=== PATIENT | female | born 1970 | race Caucasian/White ===

== ENCOUNTER 2022-09-18 15:45 | Outpatient (CLI) | payer MEDICAID, SELFPAY ==
--- NOTE | 2022-09-18 16:00 | CRLHL7_ITS ---
For Patients: As a result of the Century Cures Act, medical imaging exams and procedure reports are released immediately into your electronic medical record. You may view this report before your referring provider. If you have questions, please contact your health care provider. INDICATION: Otorrhea Comparison none. TECHNIQUE: Noncontrast CT of the yazidi bones. FINDINGS: Left: Opacification of the posterior inferior left mastoid air cells. The remaining left mastoid air cells and mastoid antrum are clear. Middle ear cavity is clear. Normal articulation of the ossicular chain. No opacification of sinus tympani. Normal tympanic membrane. The external auditory canal is patent. Tegmen tympani is intact. Normal mineralization of the otic capsule. Normal cochlea and vestibule. Normal internal auditory canal. Right: Opacification coalescence of the right mastoid air cells and mastoid antrum. 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 There is normal articulation of the prosthesis at the oval window. Thinning of tegmen tympani but without eduardo dehiscence. Normal external auditory canal. Normal mineralization the otic capsule. Normal cochlea and vestibule. Normal internal auditory canal. Other: Visualized paranasal sinuses are clear. IMPRESSION: 1. Small amount of fluid opacifying the posterior inferior left mastoid air cells. Otherwise, remainder of the left temporal bone structures are normal 2. Complete opacification coalescence of the right mastoid air cells and mastoid antrum. Right total ossicular replacement prosthesis. Normal right inner ear structures Please note that all CT scans at this facility use dose modulation, iterative reconstruction, and/or weight-based dosing when appropriate to reduce radiation dose to as low as reasonably achievable. Dictated by Isaac Myrick MD @ 09/19/2022 12:56:02 PM (Electronically Signed)
== END 2022-09-18 15:46 | disposition home or self-care (01) ==
LOC: CT 15:47
PROVIDERS: Visit Provider Otolaryngology
DX: H92.10 Otorrhea, unspecified ear (principal)
CPT/HCPCS: 70480

== ENCOUNTER 2023-05-09 17:32 | Emergency (ER) | payer MEDICAID, SELFPAY ==
[2023-05-09] VITALS (11 sets, daily range): BP systolic 114–139; BP diastolic 66–86; PULSE 58–78; RESP 18; TEMP 36.6; O2SAT 91–98; BMI 42.1
[2023-05-09] MEDS: 0.9 % SODIUM CHLORIDE 1000 ml 1,000 ML IV (18:11)
[2023-05-09 18:14] LABS: Basophils Absolute Auto 0.03 K/uL (0.00-0.30); Basophils Percent Auto 0.4 % (0.0-3.0); Eosinophils Absolute Auto 0.08 K/uL (0.00-0.50); Hematocrit 45.6 % (33.0-51.0); Hemoglobin* 14.4 gm/dL (12.0-16.0); Immature Granulocytes Abs Auto 0.08 K/uL (0.00-0.30); Lymphocytes Absolute Auto 1.83 K/uL (0.90-2.90); Lymphocytes Percent Auto 23.9 % (20-44); Mean Corpuscular HGB Conc 32 gm/dL (32-36); Mean Corpuscular Hemoglobin 27 pg (26-34); Mean Corpuscular Volume 85 fL (80-100); Monocytes Percent Auto 8.7 % (0.0-11.0); Neutrophils Absolute Auto 4.98 K/uL (1.7-7.0); Platelet Count* 208 K/uL (140-440); RDW Coefficient of Variation % 13.5 % (11.5-15.5); Red Blood Count 5.38 m/uL (4.00-5.20); White Blood Count* 7.67 K/uL (4.50-11.00)
--- OUTSIDE RECORDS SUMMARY | 2023-05-09 18:18 | XMS_ITS | Referral Summary ---
Author Name Unknown Organization [facility] Address [address] [place] [address] Care Team Providers Care Sql Server Bi Developer Name Role Phone Roderick Morelos MD Unavailable [phone] Magno Wood MD Unavailable [phone] Sophie Ocasio AuD Unavailable Henny Rosales PRECISION GRINDER CAMPGROUND CLEANING ATTENDANT Unavailable Sharee Negron RD Unavailable Kaykay Duarte NP Primary Care Provider [phone] Christiane Rodríguez MD Unavailable Jing Cadena PRECISION GRINDER BILL PEDDLER Unavailable Radha Lopez [facility] Unavailable [phone] Geri Loza PA-C Unavailable [phone] Encounters Date Type Department Care Team Description 04/23/2023 MyC Medical Advice [facility] Weight Management [address] [phone] Aye [facility] 04/23/2023 12:00 PM FISH FILLETER Virtual Visit [facility] [address] [phone] Geri Loza PA-C S/P laparoscopic sleeve gastrectomy 04/23/2023 1:30 PM FISH FILLETER Virtual Visit [facility] [address] [phone] Nutritional counseling (Primary Dx); S/P laparoscopic sleeve gastrectomy; Type 2 diabetes mellitus without complication, without long-term current use of insulin (H); Obesity 04/14/2023 MyC Medical Advice [facility] [address] [phone] Tanya Larsen, RN 04/06/2023 MyC Medical Advice [facility] [address] [phone] Tanya Larsen, RN 04/02/2023 MyC Medical Advice [facility] [address] [phone] Tanya Larsen, RN 03/31/2023 MyC Medical Advice [facility] [address] [phone] Tanya Larsen, RN 03/25/2023 MyC Medical Advice [facility] [address] [phone] Aye [facility] 03/25/2023 2:30 PM FISH FILLETER Virtual Visit [facility] [address] [phone] Nutritional counseling (Primary Dx); S/P laparoscopic sleeve gastrectomy; Class 3 severe obesity with serious comorbidity and body mass index (BMI) of 45.0 to 49.9 in adult, unspecified obesity type (H); Type 2 diabetes mellitus without complication, without long-term current use of insulin (H) 03/24/2023 MyC Medical Advice [facility] [address] [phone] Agnélica Milligan 03/24/2023 10:30 AM FISH FILLETER Office Visit [facility] [address] [place] [phone] Alia Flowers NP S/P laparoscopic sleeve gastrectomy (Primary Dx); Class 3 severe obesity with serious comorbidity and body mass index (BMI) of 45.0 to 49.9 in adult, unspecified obesity type (H); Type 2 diabetes mellitus without complication, without long-term current use of insulin (H) 03/22/2023 Travel 03/21/2023 MyC Medical Advice [facility] [address] [place] [phone] Luis A Escobedo MD 03/21/2023 Orders Only [facility] Surgical Specialties Service Line [address] [place] [phone] Luis A Escobedo MD S/P gastric bypass (Primary Dx) 03/20/2023 Telephone [facility] - Surgical Specialties Service Line [address] [place] [phone] Jose L Grayson MD 03/18/2023 8:33 AM FISH FILLETER - 03/19/2023 1:35 PM FISH FILLETER Hospital Encounter [facility] [address] [place] [phone] Luis A Escobedo MD Acute post-operative pain (Primary Dx); Morbid obesity (H); S/P laparoscopic sleeve gastrectomy Discharge Disposition: Home or Self Care 03/18/2023 11:10 AM FISH FILLETER - 03/18/2023 3:05 PM FISH FILLETER Surgery [facility] Per[facility]Op Services [address] [place] [phone] Luis A Escobedo MD laparoscopic conversion sleeve gastrectomy to Juan F-en-Y gastric bypass; upper endoscopy 03/18/2023 11:43 AM FISH FILLETER Anesthesia Event [facility] [address] [place] [phone] Bobo Martínez MD Simmons, Kelli Jo, PRECISION GRINDER BILL PEDDLER 03/17/2023 MyC Medical Advice PREOP/PHASE II [address] [place] [phone] Pearl Rocha, SKIP 03/11/2023 MyC Medical Advice Initial Department [facility] 03/11/2023 MyC Medical Advice Initial Department [facility] 02/18/2023 MyC Medical Advice [facility] Preoperative Assessment [address] [phone] Nikky Babb RN 02/18/2023 PRE VISIT [facility] Preoperative Assessment [address] [phone] Jing Cadena, PRECISION GRINDER BILL PEDDLER 02/18/2023 10:00 AM FISH FILLETER Virtual Visit [facility] Preoperative Assessment [address] [phone] Luis A Escobedo MD Simmons, Kelli Jo, PRECISION GRINDER BILL PEDDLER Preop examination (Primary Dx); S/P laparoscopic sleeve gastrectomy 02/17/2023 MyC Medical Advice [facility] [address] [phone] Henny Arguello, SKIP 02/17/2023 MyC Medical Advice [facility] [address] [phone] Henny Arguello, SKIP 02/17/2023 8:00 AM FISH FILLETER Virtual Visit [facility] [address] [phone] Henny Arguello, SKIP S/P laparoscopic sleeve gastrectomy (Primary Dx); At high risk for postoperative complications 02/10/2023 Telephone [facility] [address] [phone] Edgar Rothman 02/09/2023 Telephone [facility] [address] [phone] Radha Dominguez RN 02/06/2023 MyC Medical Advice [facility] [address] [phone] Kang Griffiths 02/06/2023 9:30 AM FISH FILLETER Virtual Visit [facility] [address] [phone] Nutritional counseling (Primary Dx); S/P laparoscopic sleeve gastrectomy; Class 3 severe obesity with serious comorbidity and body mass index (BMI) of 45.0 to 49.9 in adult, unspecified obesity type (H); Type 2 diabetes mellitus without complication, without long-term current use of insulin (H); Gastroesophageal reflux disease with esophagitis, unspecified whether hemorrhage from Last 3 Months Allergies Active Allergy Reactions Criticality Noted Date Comments Ibuprofen Other (See Comments) Low 10/19/2020 Gastric sleeve Medications Medication Sig Dispensed Refills Start Date End Date Status levothyroxine (SYNTHROID/LEVOTHR OID) 200 MCG tablet Take 225 mcg by mouth at bedtime 90 tablet 0 Active gabapentin (NEURONTIN) 600 MG tablet Take 600 mg by mouth At Bedtime 0 Active rOPINIRole (REQUIP) 2 MG tablet Take 2 mg by mouth 2 times daily Take in afternoon and at bedtime 0 Active albuterol (PROVENTIL) (2.5 MG/3ML) 0.083% neb solutionIndication s:Asthma with acute exacerbation, unspecified asthma severity, unspecified whether persistent Take 1 vial (2.5 mg) by nebulization every 4 hours as needed for shortness of breath / dyspnea or wheezing 90 mL 1 2 Active Additional Information Patient taking differently:2.5 mg NebulizationPRN, shortness of breath, wheezing, Reported on 11/19/2022 albuterol (PROAIR HFA/PROVENTIL HFA/VENTOLIN HFA) 108 (90 Base) MCG/ACT inhaler Inhale 2 puffs into the lungs every 6 hours as needed for shortness of breath / dyspnea or wheezing 18 g 0 2 Active Additional Information Patient taking differently:2 puff InhalationPRN, shortness of breath, wheezing, Reported on 11/19/2022 blood glucose (ACCU-CHEK GUIDE) test strip USE 1 STRIP TO TEST THREE TIMES A DAY. 0 3 Active levonorgestrel (MIRENA) 52 MG (20 mcg/day) IUD 1 each by Intrauterine route 0 Active atorvastatin (LIPITOR) 40 MG tablet Take 40 mg by mouth every evening 0 3 11/27/19 24 Active omeprazole (PRILOSEC) [address] capsuleIndications :Gastroesophageal reflux disease with esophagitis, unspecified whether hemorrhage Take 1 capsule (40 mg) by mouth 2 times daily 180 capsule 3 3 Active cyanocobalamin (VITAMIN B-12) [address] 1 tablet under the tongue every morning 0 Active acetaminophen (TYLENOL) 325 MG tabletIndications: Morbid obesity (H),Acute post-operative pain Take 2 tablets (650 mg) by mouth every 4 hours as needed for other (For optimal non-opioid multimodal pain management to improve pain control and physical function.) 100 tablet 0 3 Active blood glucose monitoring (NO BRAND SPECIFIED) meter device kitIndications:S/P laparoscopic sleeve gastrectomy,Class 3 severe obesity with serious comorbidity and body mass index (BMI) of 45.0 to 49.9 in adult, unspecified obesity type (H),Type 2 diabetes mellitus without complication, without long-term current use of insulin (H) Use to test blood sugar 1 times daily or as directed. 1 kit 0 4 Active blood glucose (NO BRAND SPECIFIED) lancets standardIndication s:S/P laparoscopic sleeve gastrectomy,Class 3 severe obesity with serious comorbidity and body mass index (BMI) of 45.0 to 49.9 in adult, unspecified obesity type (H),Type 2 diabetes mellitus without complication, without long-term current use of insulin (H) Use to test blood sugar 1 times daily or as directed. 100 each 1 4 Active blood glucose (CONTOUR NEXT TEST) test stripIndications:S /P laparoscopic sleeve gastrectomy,Class 3 severe obesity with serious comorbidity and body mass index (BMI) of 45.0 to 49.9 in adult, unspecified obesity type (H),Type 2 diabetes mellitus without complication, without long-term current use of insulin (H) 1 strip by In Vitro route daily Use to test blood sugar 1 times daily or as directed. 100 strip 3 4 Active ursodiol (ACTIGALL) 300 MG capsuleIndications :S/P laparoscopic sleeve gastrectomy Take 1 capsule (300 mg) by mouth 2 times daily 60 capsule 5 4 Active Cyanocobalamin (B-12) 500 MCG SUBLIndications:S/ P laparoscopic sleeve gastrectomy Place 1 tablet under the tongue daily 30 tablet 11 4 Active tirzepatide (MOUNJARO) 15 MG/0.5ML pen Inject 15 mg Subcutaneous every 7 days Thursday 0 04/23/19 24 Discontinued( Stop at Discharge) hyoscyamine (LEVSIN) 0.125 MG tabletIndications: S/P laparoscopic sleeve gastrectomy,At high risk for postoperative complications Take 1 tablet (125 mcg) by mouth every 4 hours as needed for cramping 30 tablet 1 3 04/23/19 24 Discontinued( Therapy completed (No AVS)) ondansetron (ZOFRAN ODT) 4 MG ODT tabIndications:S/P laparoscopic sleeve gastrectomy,At high risk for postoperative complications Take 1 tablet (4 mg) by mouth every 6 hours as needed for nausea 15 tablet 0 3 04/23/19 24 Discontinued( Therapy completed (No AVS)) senna-docusate (SENOKOT-S/PERICOL PAULA) 8.6-50 MG tabletIndications: S/P laparoscopic sleeve gastrectomy,At high risk for postoperative complications Take 2 tablets by mouth daily as needed for constipation (While taking narcotic pain medications. Stop taking if having loose stools.) 30 tablet 1 3 04/23/19 24 Discontinued( Therapy completed (No AVS)) oxyCODONE (ROXICODONE) 5 MG tabletIndications: Acute post-operative pain Take 1 tablet (5 mg) by mouth every 6 hours as needed 12 tablet 0 3 04/23/19 24 Discontinued( Therapy completed (No AVS)) senna-docusate (SENOKOT-S/PERICOL PAULA) 8.6-50 MG tabletIndications: Morbid obesity (H),Acute post-operative pain Take 2 tablets by mouth 2 times daily as needed for constipation 30 tablet 0 3 04/23/19 24 Discontinued( Therapy completed (No AVS)) ondansetron (ZOFRAN ODT) 4 MG ODT tabIndications:Mor bid obesity (H),Acute post-operative pain Take 1 tablet (4 mg) by mouth every 6 hours as needed for nausea or vomiting 30 tablet 0 3 04/23/19 24 Discontinued( Therapy completed (No AVS)) Cyanocobalamin (B-12) 500 MCG SUBLIndications:S/ P laparoscopic sleeve gastrectomy Place 1 tablet under the tongue daily 30 tablet 11 3 04/23/19 24 Discontinued( Reorder (No AVS)) Active Problems Problem Noted Date Diagnosed Date Morbid obesity 03/18/2023 Hyperglycemia 10/30/2021 Acute bronchitis, unspecified organism 2 Asthma with acute exacerbati on, unspecified asthma severity, unspecified whether persistent 06/19/2021 S/P laparoscopic sleeve gastrectomy 08/09/2020 08/15/2022 Overview: Laparoscopic vertical sleeve gastrectomy, intraoperative EGD No elective surgery for 30 days starting 08/09/20 Last Assessment & Plan: S/p gastric sleeve 08/09/2020 at [facility]. No post op complications. Weight prior to surgery - 338lbs, BMI 56.25 Braxton weight - 300lbs Weight today - 305lbs Denies nausea, vomiting, dysphagia, diarrhea. ETOH - rarely. No nicotine. NSAIDs - ibuprofen rarely for chronic back pain. Caffeine - 1 cup coffee daily Tachycardia 03/23/2020 Bloody stool 03/22/2020 Hx of hemorrhoids 03/22/2020 Pneumonia due to COVID-19 virus 03/20/2020 Viral pneumonitis 03/19/2020 Hypoxia 03/19/2020 2019 novel coronavirus disease (COVID-19) 2019 Type 2 diabetes mellitus wit hout complication, without long-term current use of insulin 12/15/2019 Severe obstructive sleep apnea 07/06/2019 Overview: Setting: Supplied by: PSG done: 07-04-18 AHI 35 RDI 36 Lowest O2 Sat: 87% Lorin Hypothyroidism, unspecified type 06/28/2019 Cervical high risk HPV (human papillomavirus) te st positive 08/05/2017 Overview: Overview: [facility] Review: History: 2018: NILM HPV+ (18), colp neg Plan, per ASCCP guidelines: co-test in 12 months (08/2018) Class 3 severe obesity with serious comorbidity and body mass index (BMI) of 45.0 to 49.9 in adult, unspecified obesity type 04/15/2017 Last Assessment & Plan: Overweight onset through 3 pregnancies and was weight stable at 250lbs for many years. Weight gain was very gradual. Decided to complete bariatric surgery after years of consider for help with resistant weight loss. Gastric sleeve was completed 08/09/[address] [facility] [address] Barillas. Starting weight 338lb, BMI 56.25. She felt that instantly did not see expected weight loss results. Per chart review had lost 8lbs by 3 months post op and has followed up with [facility] since. She has lost 38lbs since surgery, and has been able maintain weight loss of 305lbs for many years. However, continues to feel that is inadequet weight loss and wanted to discuss a conversion to RYBP today. Started Mounjaro over the past 6 months and is currently taking 15mg once weekly for the past 7 weeks. For Type II Diabetes. No side effects. No weight loss. Some help with hunger and feeling funk faster. She states she eats 3 meals a day with no snacks. But does have increase hunger. Will have her follow up with dietitian for further evaluation on diet. Per chart review was most recently seen by Dr. Joshua Daniel for inadequate weight loss and GERD symptoms. Discussed possible corrective surgery and UGI was completed. Per chart review, patient did not follow up after UGI was completed. Will have images pushed. Will review with team at next bariatric team meeting and discuss possible surgical options. Chronic low back pain 08/01/2016 OAB (overactive bladder) 08/01/2016 Mild intermittent asthma without complication Moderate persistent asthma with acute exacerbati on 06/12/2016 Wheezing 10/21/2014 Asthma exacerbation 10/21/2014 Panic attacks 10/16/2014 Restless legs syndrome 05/29/2014 Gastroesophageal reflux disease with esophagitis 08/14/2009 Last Assessment & Plan: GERD onstet after sleeve surgery. Symptoms include burning in chest/throat and acid in throat. Symptoms worsened with food. Triggered by acidic food. Takes TUMs PRN. Denies vomiting. UGI 08/08/2022. Will start Omeprazole 20mg once daily for symptom control. Irregular heart beat 08/14/2009 Mixed hyperlipidemia 08/14/2009 Immunizations Name Administration Dates Next Due Influenza (H1N1) 01/24/2009 Influenza (IIV3) PF 03/30/2013,04/02/2012,2008 Influenza Vaccine >6 months,quad, PF ,12/22/2015,01/01/2015,2013 Pneumococcal 23 valent 04/14/2017 Social History Tobacco Use Types Packs/Day Years Used Date Smoking Tobacco: Never Passive Smoke Exposure: Never Smokeless Tobacco: Never Tobacco Cessation:Counseling Given: Not Answered Alcohol Use Standard Drinks/Week Comments Not Currently 0 (1 standard drink = 0.6 oz pur e alcohol) socially PHQ-2 Answer Date Recorded PHQ-2 Score 0 04/23/2023 Adolescent Education Answer Date Record ed Getting School Help Needed Not on file 12/19 Sex and Gender Information Value Date Recorded Sex Assigned at Not on file Gender Identity Not on file Sexual Orientation Not on file Last Filed Vital Signs Vital Sign Reading Time Taken Comments Blood Pressure 124/78 03/24/2023 10:20 AM FISH FILLETER Pulse 70 03/24/2023 10:20 AM FISH FILLETER Temperature 36.8 ??C (98.2 ??F) 03/24/2023 10:[address] Respiratory Rate 16 03/24/2023 10:20 AM FISH FILLETER Oxygen Saturation 99% 03/24/2023 10:20 AM FISH FILLETER Inhaled Oxygen Concentration - - Weight 120.7 kg (266 lb) 04/23/2023 11:55 AM FISH FILLETER Height 167.6 cm (5' 6) 04/23/2023 11:55 AM FISH FILLETER Body Mass Index 42.93 04/23/2023 11:55 AM FISH FILLETER Plan of Treatment Upcoming Encounters Date Type Department Care Team (Late st Contact Info) Description 06/24/2023 12:30 PM CDT Virtual Visit [facility] [address] [phone] Geri Loza PA-C [address] [place] [address] [phone] 06/24/2023 1:00 PM CDT Virtual Visit [facility] Weight Management [address] [phone] Sharee Negron, RD [address] [place] [phone] Goals Goal Patient Goal Type Associated Problems Recent Progress Patient-Stated? Author BRIAN PATHWAY SURGERY IS SCHEDULED Care Plan [facility] PATHWAY SURGERY IS SCHEDULED No Luis A Escobedo MD Procedures Procedure Name Priority Date/Time Associated Diagnosis Comments GLUCOSE BY METER Routine 03/19/2023 12:0 5 PM FISH FILLETER PLATELET COUNT STAT 03/19/2023 7:37 AM FISH FILLETER GLUCOSE BY METER Routine 03/19/2023 7:24 AM FISH FILLETER GLUCOSE BY METER Routine 03/19/2023 2:52 AM FISH FILLETER GLUCOSE BY METER Routine 03/18/2023 10:2 7 PM FISH FILLETER GLUCOSE BY METER Routine 03/18/2023 7:32 PM FISH FILLETER CREATININE Routine 03/18/2023 6:21 PM FISH FILLETER GLUCOSE BY METER Routine 03/18/2023 4:46 PM FISH FILLETER GLUCOSE BY METER Routine 03/18/2023 2:42 PM FISH FILLETER ANE AIRWAY ETT PERFORMABLE Routine 03/18/2023 12:00 PM FISH FILLETER HERNIORRHAPHY, HIATAL, LAPAROSCOPIC 03/18/2023 11:51 AM FISH FILLETER Morbid obesity (H) Special Needs Estimated body mass index is 47.05 kg/m?? as calculated from the following:Height as of 01/29/23: 1.676 m (5' 6).Weight as of 01/29/23: 132.2 kg (291 lb 8 oz). PAC [id number] CREATION, GASTRIC BYPASS, LAPAROSCOPIC 03/18/2023 11:51 AM FISH FILLETER Morbid obesity (H) Special Needs Estimated body mass index is 47.05 kg/m?? as calculated from the following:Height as of 01/29/23: 1.676 m (5' 6).Weight as of 01/29/23: 132.2 kg (291 lb 8 oz). PAC [id number] ABO/RH TYPE AND SCREEN STAT 03/18/2023 10:38 AM FISH FILLETER TYPE AND SCREEN, ADULT STAT 03/18/2023 10:38 AM FISH FILLETER GLUCOSE BY METER Routine 03/18/2023 9:22 AM FISH FILLETER from Last 3 Months Results * Glucose by meter (03/19/2023 12:05 PM FISH FILLETER) Only the most recent of8 resultswithin the time period is included. [facility] GLUCOSE BY METER POCT 91 70 - 99 mg/dL 03/19/2023 12:12 PM FISH FILLETER [facility] POC Blood, Capillary BLOOD SPECIMEN / Unknown 03/19/2023 12:05 PM FISH FILLETER 03/19/2023 12:12 PM FISH FILLETER Luis A LAWTON POCT [facility] POC [facility] [place] [facility] [address] [facility], [address] [place] [address], [facility] [phone] * Platelet count (03/19/2023 7:37 AM FISH FILLETER) Pathologist [facility] Platelet Count 237 150 - 450 10e3/uL 03/19/2023 7:54 AM FISH FILLETER [facility] Blood STRUCTURE OF LEFT UPPER LIMB / Unknown Venipuncture / Unknown 03/19/2023 7:37 AM FISH FILLETER 03/19/2023 7:47 AM FISH FILLETER Luis A Escobedo MD LAB - BLOOD ORDER [facility] [address] [facility], [address] [phone], [facility] [phone] * Creatinine (03/18/2023 6:21 PM FISH FILLETER) Pathologist [facility] Creatinine 0.76 0.51 - 0.95 mg/dL 03/18/2023 7:05 PM FISH FILLETER [facility] GFR Estimate >90 >60 mL/min/1.73 m2 03/18/2023 7:05 PM FISH FILLETER U LABORATORY Blood STRUCTURE OF LEFT HAND / Unknown Venipuncture / Unknown 03/18/2023 6:21 PM FISH FILLETER 03/18/2023 6:32 PM FISH FILLETER Disha Guthrie MD LAB - BLOOD O RDERABLES Performing Organization Address City/[facility]/ZIP Co de Phone Number LABORATORY [facility] [address] [facility], [address] [phone], [facility] [phone] * ANE AIRWAY ETT PERFORMABLE (03/18/2023 12:00 PM FISH FILLETER) Narrative Emerita Jacques APRN CRNA - 03/18/2023 12:00 PM FISH FILLETER Emerita Jacques APRN CRNA ? 03/18/2023 12:16 PM Airway ? Patient location during procedure: OR ? Procedure Start/Stop Times: 03/18/2023 12:00 PM Staff - ? PRODUCTION SUPPORT MANAGER: Emerita Jacques APRN CRNA ? Performed By: PRODUCTION SUPPORT MANAGER Consent for Airway ? Urgency: elective Indications and Patient Condition ? Indications for airway management: ruslan-procedural ? Induction type:intravenous ? Mask difficulty assessment: 1 - vent by mask Final Airway Details ? Final airway type: endotracheal airway ? Successful airway: ETT - single and Oral Endotracheal Airway Details ? ETT size (mm): 7.0 ? Cuffed: yes ? Successful intubation technique: direct laryngoscopy ? DL Blade Type: MAC 3 ? Grade View of Cords: 1 ? Adjucts: stylet ? Position: Right ? Measured from: lips ? Secured at (cm): 22 Post intubation assessment ? Placement verified by: capnometry, equal breath sounds and chest rise ? Number of attempts at approach: 1 ? Secured with: pink tape ? Ease of procedure: easy ? Dentition: Unchanged and Intact Medication(s) Administered Medication Administration Time: 03/18/2023 12:00 PM Faizan Moscoso MD [place] ANESTHESIA * Adult Type and Screen (03/18/2023 10:38 AM FISH FILLETER) ABO/RH(D) O POS 03/18/2023 10:02 AM FISH FILLETER [facility] Antibody Screen Negative Negative 03/18/2023 10:02 AM FISH FILLETER [facility] SPECIMEN EXPIRATION DATE [id number] 03/18/2023 10:02 AM FISH FILLETER U BLOOD BANK Blood STRUCTURE OF LEFT HAND / Unknown Venipuncture / Unknown 03/18/2023 10:38 AM FISH FILLETER 03/18/2023 10:55 AM FISH FILLETER Luis A Escobedo MD LAB - BLOOD BANK TEST ORDER [facility] [address] [place] [address], [facility] from Last 3 Months Additional Health Concerns Problem Noted Date Diagnosed Date BRIAN PATHWAY SURGERY IS SCHEDULED 10/15/2022 Advance Directives For more information, please contact: [phone] Latest Code Status on File Code Status Date Activated Date Inactivated Comments Full Code 03/18/2023 5:53 PM 03/19/2023 4:25 PM All basic and advanced life-sustaining interventions are performed as appropriate Question Answer Comments Code status determined by: Unable to discuss and no AD/POLST on file; continue PREVIOUSLY ORDERED code status Code Status History Code Status Date Activated Date Inactivated Comments Full Code 10/30/2021 2:35 AM 10/31/2021 11:55 AM All basic and advanced life-sustaining interventions are performed as appropriate Question Answer Comments Code status determined by: Discussion with patient/ legal decision maker Full Code 06/19/2021 4:12 AM 06/19/2021 5:17 PM All b asic and advanced life-sustaining interventions are performed as appropriate Question Answer Comments Code status determined by: Discussion with patient/ legal decision maker Full Code 03/19/2020 8:54 PM 03/20/2020 6:32 PM All basic and advanced life-sustaining interventions are performed as appropriate Question Answer Comments Code status determined by: Discussion with patient/ legal decision maker Full Code 10/22/2014 12:01 PM 05/01/2018 3:45 AM Care Teams Sql Server Bi Developer Relationship Specialty [place] [address] [address] [place] [address] PCP - General 10/15/22 Roderick Morelos MD [address] [place] [address] Cardiovascular Disease 02/03/22 Magno Wood MD 420 [facility] 396 [place], [place] [address] Otolaryngology 02/21/22 Sophie Ocasio AuD [address] [place] [address] [phone] Armature Winder Repair Audiology 02/21/22 Henny Rosales, PRECISION GRINDER CAMPGROUND CLEANING ATTENDANT [address] [place] [phone] Assigned Heart and Vascular Provider 08/09/[address] [place] [address] Registered Dietitian Dietitian, Registered 09/02/22 Christiane Rodríguez MD [address] [place] [address] 205275 Otolaryngology 11/12/22 Jing Cadena, PRECISION GRINDER BILL PEDDLER [address] [place] [address] Clinical Nurse Specialist Anesthesiology 01/15/23 Radha Lopez, [facility] [address] [place] [address] [phone] Pharmacist Pharmacist 01/16/23 Geri Loza PA-C [address] [place] [address] Assigned Surgical Provider 04/16/23
--- OUTSIDE RECORDS SUMMARY | 2023-05-09 18:18 | XMS_ITS | Encounter Summary ---
Author Name Unknown Organization [place] Address [address] [place] [address] Care Team Providers Care Blasting Gang Miner Name Role Phone Roderick Morelos MD Unavailable [phone] Magno Wood MD Unavailable [phone] Sophie Ocasio AuD Unavailable Henny Rosales APPLE PACKING HEADER WARDROBE SPECIALTY WORKER Unavailable [phone] Unavailable Kaykay Duarte MINERAL ENGINEER Primary Care Provider Christiane Rodríguez MD Unavailable Jing Cadena APPLE PACKING HEADER GALVANIZER Unavailable Radha Lopez [facility] Unavailable Geri Loza PA-C Unavailable [phone] Encounter Details Date Type Department Care Team (Late st Contact Info) Description 04/23/2023 [facility] [place] [id number] [facility] [address] [place] [address] Kang Griffiths Social History Tobacco Use Types Packs/Day Years Used Date Smoking Tobacco: Never Passive Smoke Exposure: Never Smokeless Tobacco: Never Alcohol Use Standard Drinks/Week Comments Not Currently 0 (1 standard drink = 0.6 oz pur e alcohol) socially PHQ-2 Answer Date Recorded PHQ-2 Score 0 04/23/2023 Adolescent Education Answer Date Record ed Getting School Help Needed Not on file 12/19 Sex and Gender Information Value Date Recorded Sex Assigned at Not on file Gender Identity Not on file Sexual Orientation Not on file documented as of this encounter Plan of Treatment Upcoming Encounters Date Type Department Care Team (Late st Contact Info) Description 06/24/2023 12:30 PM CDT Virtual Visit [facility] [address] [phone] Geri Loza PA-C [address] [place] [address] [phone] 06/24/2023 1:00 PM CDT Virtual Visit [facility] [address] [phone] Sharee Negron, RD [address] [place] [address] [phone] documented as of this encounter Goals Goal Patient Goal Type Associated Problems Recent Progress Patient-Stated? Author BRIAN PATHWAY SURGERY IS SCHEDULED Care Plan BRIAN PATHWAY SURGERY IS SCHEDULED No Luis A Escobedo MD documented as of this encounter Visit Diagnoses Not on filedocumented in this encounter Additional Health Concerns Problem Noted Date Diagnosed Date BRIAN PATHWAY SURGERY IS SCHEDULED 10/15/2022 documented as of this encounter Care Teams Blasting Gang Miner Relationship Specialty Start Date End Date Kaykay Duarte MINERAL ENGINEER [address] [place] [address] PCP - General 10/15/22 Roderick Morelos MD [address] [place] [address] Cardiovascular Disease 02/03/22 Magno Wood MD 420 [facility] [address] [place] [address] Otolaryngology 02/21/22 Sophie Ocasio AuD [address] [place] [address] Center Machine Set Up Operator Audiology 02/21/22 Henny Rosales, APPLE PACKING HEADER WARDROBE SPECIALTY WORKER [address] [place] [phone] Assigned Heart and Vascular Provider 08/09/[address] [place] [address] [phone] Registered Dietitian Dietitian, Registered 09/02/22 Christiane Rodríguez MD [address] [place] [address] 396 [place] [address] Otolaryngology 11/12/22 Jing Cadena, APPLE PACKING HEADER GALVANIZER [address] [place] [address] [address] [place] [address] Clinical Nurse Specialist Anesthesiology 01/15/23 Radha Lopez [facility] [address] [place] [address] Pharmacist Pharmacist 01/16/23 Geri Loza PA-C [address] [place] [address] [phone] Assigned Surgical Provider 04/16/23 documented as of this encounter
--- OUTSIDE RECORDS SUMMARY | 2023-05-09 18:18 | XMS_ITS | Clinical Summary ---
Author Name Unknown Organization [place] Address [address] [place] [address] Care Team Providers Care Preform Machine Operator Name Role Phone Roderick Morelos MD Unavailable Magno Wood MD Unavailable [phone] Sophie Ocasio AuD Unavailable Henny Rosales RN MDS COORDINATOR CLIENT ACCOUNT MANAGER Unavailable Sharee Negron RD Unavailable Kaykay Duarte NP Primary Care Provider Christiane Rodríguez MD Unavailable [phone] Jing Cadena RN MDS COORDINATOR MANAGEMENT ARCHITECT Unavailable Radha Lopez [facility] Unavailable [phone] Geri Loza PA-C Unavailable Allergies Active Allergy Reactions Criticality Noted Date [...] & Plan: S/p gastric sleeve 08/09/2020 at [facility]. No post op complications. Weight prior to [...] 35 RDI 36 Lowest O2 Sat: 87% [place] Hypothyroidism, unspecified type 06/28/2019 Cervical high risk HPV (human papillomavirus) te st positive 08/05/2017 Overview: Overview: [facility] Review: History: 2018: NILM HPV+ (18), colp [...] loss. Gastric sleeve was completed 08/09/[address] [facility] [address] Barillas. Starting weight 338lb, BMI 56.25. She felt that instantly did not see expected weight loss results. Per chart review had lost 8lbs by 3 months post op and has followed up with [facility] since. She has lost 38lbs since surgery, [...] Irregular heart beat 08/14/2009 Mixed hyperlipidemia 08/14/2009 Encounters Date Type Department Care Team Description 04/23/2023 1:30 PM CANDY PULLER Virtual Visit [facility] [address] [phone] Nutritional counseling (Primary Dx); S/P laparoscopic sleeve gastrectomy; Type 2 diabetes mellitus without complication, without long-term current use of insulin (H); Obesity 04/23/2023 12:00 PM CANDY PULLER Virtual Visit [facility] [address] [phone] Geri Loza PA-C S/P laparoscopic sleeve gastrectomy 04/23/2023 [facility] Medical Advice [facility] [address] [phone] [facility] 04/14/2023 My[facility] Medical Advice [facility] Weight Management [address] [phone] Tanya Larsen, RN 04/06/2023 [facility] Medical Advice [facility] Weight Management [address] [phone] Tanya Larsen, RN 04/02/2023 [facility] Medical Advice [facility] Weight Management [address] [phone] Tanya Larsen, RN 03/31/2023 My[facility] Medical Advice [facility] Management [address] [phone] Tanya Larsen, SKIP 03/25/2023 2:30 PM CANDY PULLER Virtual Visit [facility] Weight Management [address] [phone] Nutritional counseling (Primary Dx); S/P laparoscopic sleeve gastrectomy; Class 3 severe obesity with serious comorbidity and body mass index (BMI) of 45.0 to 49.9 in adult, unspecified obesity type (H); Type 2 diabetes mellitus without complication, without long-term current use of insulin (H) 03/25/2023 [facility] Management [address] [phone] [facility] 03/24/2023 10:30 AM CANDY PULLER Office Visit [facility] Management [address] [phone] Alia Flowers NP S/P laparoscopic sleeve gastrectomy (Primary Dx); Class 3 severe obesity with serious comorbidity and body mass index (BMI) of 45.0 to 49.9 in adult, unspecified obesity type (H); Type 2 diabetes mellitus without complication, without long-term current use of insulin (H) 03/24/2023 MyC Medical Advice [facility] [place] [address] [place] [address] 4th [place] [phone] Angélica Milligan 03/22/2023 Travel 03/21/2023 MyC Medical Advice [facility] [place] [address] [place] [address] 4th [place] [phone] Luis A Escobedo MD 03/21/2023 Orders Only [facility] Surgical Specialties Service Line [address] [place] [phone] Luis A Escobedo MD S/P gastric bypass (Primary Dx) 03/20/2023 Telephone [facility] Surgical Specialties Service Line [address] [place] [phone] Jose L Grayson MD 03/18/2023 11:43 AM CANDY PULLER Anesthesia Event [facility] [address] [place] [phone] Bobo Martínez MD Simmons, Kelli Jo, RN MDS COORDINATOR [facility] 03/18/2023 11:10 AM CANDY PULLER - 03/18/2023 3:05 PM CANDY PULLER Surgery [facility] [address] [place] [phone] Luis A Escobedo MD laparoscopic conversion sleeve gastrectomy to Juan F-en-Y gastric bypass; upper endoscopy 03/18/2023 8:33 AM CANDY PULLER - 03/19/2023 1:35 PM CANDY PULLER Hospital Encounter [facility] Unit [address] [place] [address] [address] [place] [phone] Luis A Escobedo MD Acute post-operative pain (Primary Dx); Morbid obesity (H); S/P laparoscopic sleeve gastrectomy Discharge Disposition: Home or Self Care 03/17/2023 MyC Medical Advice UR PREOP/PHASE II [address] [place] [phone] Pearl Rocha RN 03/11/2023 MyC Medical Advice Initial Department Kang Griffiths 03/11/2023 [facility]C Medical Advice [facility] 02/18/2023 10:00 AM CANDY PULLER Virtual Visit [facility] Preoperative Assessment [address] [phone] Luis A Escobedo MD Simmons, Kelli Jo, RN MDS COORDINATOR MANAGEMENT ARCHITECT Preop examination (Primary Dx); S/P laparoscopic sleeve gastrectomy 02/18/2023 MyC Medical Advice [facility] Preoperative Assessment [address] [phone] Nikky Babb RN 02/18/2023 PRE VISIT [facility] Preoperative Assessment [address] [phone] Jing Cadena, RN MDS COORDINATOR MANAGEMENT ARCHITECT 02/17/2023 8:00 AM CANDY PULLER Virtual Visit [facility] Weight Management [address] [phone] Henny Arugello, SKIP S/P laparoscopic sleeve gastrectomy (Primary Dx); At high risk for postoperative complications 02/17/2023 MyC Medical Advice [facility] Weight Management [address] [phone] Henny Arguello, RN 02/17/2023 MyC Medical Advice [facility] Weight Management [address] [phone] Henny Arguello, RN 02/10/2023 Telephone [facility] Weight Management [address] [phone] Edgar Rothman 02/09/2023 Telephone [facility] Weight Management [address] [phone] Radha Dominguez, RN 02/06/2023 9:30 AM CANDY PULLER Virtual Visit [facility] Management [address] [phone] Nutritional counseling (Primary Dx); S/P laparoscopic sleeve gastrectomy; Class 3 severe obesity with serious comorbidity and body mass index (BMI) of 45.0 to 49.9 in adult, unspecified obesity type (H); Type 2 diabetes mellitus without complication, without long-term current use of insulin (H); Gastroesophageal reflux disease with esophagitis, unspecified whether hemorrhage 02/06/2023 [facility] [address] [place] [address] [facility] from Last 3 Months Immunizations Name Administration Dates Next Due Influenza (H1N1) 01/24/2009 Influenza (IIV3) PF 03/30/2013,04/02/2012,2008 Influenza Vaccine >6 months,quad, PF ,12/22/2015,01/01/2015,2013 Pneumococcal 23 valent 04/14/2017 Family History Medical History Relation Comments Cerebrovascular Disease Father Deep Vein Thrombosis (DVT) Father Heart Disease Father Hyperlipidemia Father Breast Cancer Mother Colon Cancer Paternal Grandfather Anesthesia Reaction No family hx of Relation Status Comments Father Mother Paternal Grandfather Social History Tobacco Use Types Packs/Day Years [...] Comments Blood Pressure 124/78 03/24/2023 10:20 AM CANDY PULLER Pulse 70 03/24/2023 10:20 AM CANDY PULLER Temperature 36.8 ??C (98.2 ??F) 03/24/2023 10:[address] Respiratory Rate 16 03/24/2023 10:20 AM CANDY PULLER Oxygen Saturation 99% 03/24/2023 10:20 AM CANDY PULLER Inhaled Oxygen Concentration - - Weight 120.7 kg (266 lb) 04/23/2023 11:55 AM CANDY PULLER Height 167.6 cm (5' 6) 04/23/2023 11:55 AM CANDY PULLER Body Mass Index 42.93 04/23/2023 11:55 AM CANDY PULLER Plan of Treatment Upcoming Encounters Date Type Department Care Team (Late st Contact Info) Description 06/24/2023 12:30 PM CDT Virtual Visit [facility] [address] [phone] Geri Loza PA-C [address] [place] [phone] 06/24/2023 1:00 PM CDT Virtual Visit [facility] Weight Management [address] [phone] Sharee Negron, RD [address] [place] [address] [phone] Health Maintenance Due Date Last Done Comments ADVANCE CARE PLANNING 1968 ANNUAL REVIEW OF HM ORDERS 1968 ASTHMA CONTROL TEST 1968 CT COLONOGRAPHY 1968 DIABETIC FOOT EXAM 1968 EYE EXAM 1968 FIT 1968 FLEX SIG 1968 HEPATITIS B IMMUNIZATION (1 of 3 - 3-dose series) 1968 MICROALBUMIN 1968 URINE DRUG SCREEN 1968 sDNA (Cologuard) 1968 COLONOSCOPY 1978 COLORECTAL CANCER SCREENING 1978 HIV SCREENING 10/02/1983 HEPATITIS C SCREENING 1986 Pneumococcal Vaccine: Pediatrics (0 to 5 Years) and At-Risk Patients (6 to 64 Years) (2 of 2 - PCV) 04/14/2018 04/14/2017 COVID-19 Vaccine (3 - Pfizer risk series) 12/26/2020 11/28/2020, 06/19/2020 YEARLY PREVENTIVE VISIT 12/17/2021 12/17/2020 TSH W/FREE T4 REFLEX 02/28/2022 02/28/2021, 03/21/2020, 05/10/2019, Additional history exists INFLUENZA VACCINE (#1) 2022 , 03/31/2019, 04/14/2017, Additional history exists A1C 01/23/2023 10/23/2022, 10/30/2021 BMP 10/24/2023 10/23/2022, 03/23, 01/12/2022, Additional history exists LIPID 10/24/2023 10/23/2022, 12/15/2005 PAP 12/18/2023 12/17/2020, 12/17/2020 ASTHMA ACTION PLAN 01/28/2024 01/27/2023 MAMMO SCREENING 04/02/2025 04/02/2023, 03/23, 02/04/2022, Additional history exists DTAP/TDAP/TD IMMUNIZATION (2 - Td or Tdap) 06/27/2031 06/26/2021 ZOSTER IMMUNIZATION Completed 09/13/2021, PHQ-2 (once per calendar year) Completed 04/23/2023, 03/25/2023, 02/18/2023, Additional history exists HPV IMMUNIZATION Aged Out No longer e ligible based on patient's age to complete this topic IPV IMMUNIZATION Aged Out No longer e ligible based on patient's age to complete this topic MENINGITIS IMMUNIZATION Aged Out No l onger eligible based on patient's age to complete this topic RSV MONOCLONAL ANTIBODY Aged Out No l onger eligible based on patient's age to complete this topic Goals Goal Patient Goal Type Associated Problems Recent Progress Patient-Stated? Author [facility] Care Plan [facility] IS SCHEDULED No Luis A Escobedo MD Procedures Procedure Name Priority Date/Time Associated Diagnosis Comments GLUCOSE BY METER Routine 03/19/2023 12:0 5 PM CANDY PULLER PLATELET COUNT STAT 03/19/2023 7:37 AM CANDY PULLER GLUCOSE BY METER Routine 03/19/2023 7:24 AM CANDY PULLER GLUCOSE BY METER Routine 03/19/2023 2:52 AM CANDY PULLER GLUCOSE BY METER Routine 03/18/2023 10:2 7 PM CANDY PULLER GLUCOSE BY METER Routine 03/18/2023 7:32 PM CANDY PULLER CREATININE Routine 03/18/2023 6:21 PM CANDY PULLER GLUCOSE BY METER Routine 03/18/2023 4:46 PM CANDY PULLER GLUCOSE BY METER Routine 03/18/2023 2:42 PM CANDY PULLER ANE AIRWAY ETT PERFORMABLE Routine 03/18/2023 12:00 PM CANDY PULLER HERNIORRHAPHY, HIATAL, LAPAROSCOPIC 03/18/2023 11:51 AM CANDY PULLER Morbid obesity (H) Special Needs Estimated body mass index is 47.05 kg/m?? as calculated from the following:Height as of 01/29/23: 1.676 m (5' 6).Weight as of 01/29/23: 132.2 kg (291 lb 8 oz). PAC [id number] CREATION, GASTRIC BYPASS, LAPAROSCOPIC 03/18/2023 11:51 AM CANDY PULLER Morbid obesity (H) Special Needs Estimated body mass index is 47.05 kg/m?? as calculated from the following:Height as of 01/29/23: 1.676 m (5' 6).Weight as of 01/29/23: 132.2 kg (291 lb 8 oz). PAC [id number] ABO/RH TYPE AND SCREEN STAT 03/18/2023 10:38 AM CANDY PULLER TYPE AND SCREEN, ADULT STAT 03/18/2023 10:38 AM CANDY PULLER GLUCOSE BY METER Routine 03/18/2023 9:22 AM CANDY PULLER from Last 3 Months Results * Glucose by meter (03/19/2023 12:05 PM CANDY PULLER) Only the most recent of8 resultswithin the time period is included. GLUCOSE BY METER POCT 91 70 - 99 mg/dL 03/19/2023 12:12 PM CANDY PULLER [facility] POC Blood, Capillary BLOOD SPECIMEN / Unknown 03/19/2023 12:05 PM CANDY PULLER 03/19/2023 12:12 PM CANDY PULLER Luis A Escobedo MD LAB - BEAKER POCT LABORATORY POC [facility] [address] [facility], [address] [place] [address], [facility] [phone] * Platelet count (03/19/2023 7:37 AM CANDY PULLER) Platelet Count 237 150 - 450 10e3/uL 03/19/2023 7:54 AM CANDY PULLER [facility] Blood STRUCTURE OF LEFT UPPER LIMB / Unknown Venipuncture / Unknown 03/19/2023 7:37 AM CANDY PULLER 03/19/2023 7:47 AM CANDY PULLER Luis A Escobedo MD LAB - BLOOD ORDER [facility] Performing Organization Address City/Va Hospital/ZIP Co de Phone Number LABORATORY [facility] [address] [facility], [address] [place] [address], [facility] [phone] * Creatinine (03/18/2023 6:21 PM CANDY PULLER) Creatinine 0.76 0.51 - 0.95 mg/dL 03/18/2023 7:05 PM CANDY PULLER [facility] GFR Estimate >90 >60 mL/min/1.73 m2 03/18/2023 7:05 PM CANDY PULLER [facility] Blood STRUCTURE OF LEFT HAND / Unknown Venipuncture / Unknown 03/18/2023 6:21 PM CANDY PULLER 03/18/2023 6:32 PM CANDY PULLER Disha Guthrie MD LAB - BLOOD O RDERABLES LABORATORY [facility] [address] [facility], [address] [place] [address], [facility] [phone] * ANE AIRWAY ETT PERFORMABLE (03/18/2023 12:00 PM CANDY PULLER) Narrative Emerita Jacques APRN SENSOR OPERATOR - 03/18/2023 12:00 PM CANDY PULLER Emerita Jacques APRN SENSOR OPERATOR ? 03/18/2023 12:16 PM Airway ? Patient location during procedure: OR ? Procedure Start/Stop Times: 03/18/2023 12:00 PM Staff - ? SENSOR OPERATOR: Emerita Jacques APRN SENSOR OPERATOR ? Performed By: SENSOR OPERATOR Consent for Airway ? Urgency: elective Indications [...] Time: 03/18/2023 12:00 PM Faizan Moscoso MD [place] ANESTHESIA * Adult Type and Screen (03/18/2023 10:38 AM CANDY PULLER) ABO/RH(D) O POS 03/18/2023 10:02 AM CANDY PULLER [facility] Antibody Screen Negative Negative 03/18/2023 10:02 AM CANDY PULLER [facility] SPECIMEN EXPIRATION DATE [id number] 03/18/2023 10:02 AM CANDY PULLER [facility] Blood STRUCTURE OF LEFT HAND / Unknown Venipuncture / Unknown 03/18/2023 10:38 AM CANDY PULLER 03/18/2023 10:55 AM CANDY PULLER Luis A Escobedo MD LAB - BLOOD BANK TEST ORDER [facility] [address] [place] [address], [facility] from Last 3 Months Additional Health Concerns Problem Noted Date Diagnosed Date BRIAN PATHWAY SURGERY IS SCHEDULED 10/15/2022 Advance Directives For more information, please contact: [phone] Latest Code Status on File Code Status [...] 12:01 PM 05/01/2018 3:45 AM Care Teams Preform Machine Operator Relationship Specialty [place] [address] [place] [address] PCP - General 10/15/22 Roderick Morelos MD [address] [place], [place] [address] Cardiovascular Disease 02/03/22 Magno Wood MD [address] [place] [address] Otolaryngology 02/21/22 Sophie Ocasio AuD [address] [place] [address] [phone] Physician Practice Market Manager Audiology 02/21/22 Henny Rosales APRN CLIENT ACCOUNT MANAGER [address] [place] [phone] Assigned Heart and Vascular Provider 08/09/[address] [place] [address] [phone] Registered Dietitian Dietitian, Registered 09/02/22 Christiane Rodríguez MD [address] [place] [address] 259105 Otolaryngology 11/12/22 Jing Cadena, GINA MANAGEMENT ARCHITECT [address] [place] [address] Clinical Nurse Specialist Anesthesiology 01/15/23 Radha Lopez, [facility] [address] [place] [address] [phone] Pharmacist Pharmacist 01/16/23 Geri Loza PA-C [address] [place] [address] Assigned Surgical Provider 04/16/23
--- OUTSIDE RECORDS SUMMARY | 2023-05-09 18:18 | XMS_ITS | Clinical Summary ---
Author Name Unknown Organization [facility] Address [place], [place] [address] Care Team Providers Care Hot Roll Laminator Name Role Phone Brandan Burleson MD Unavailable [phone] Pcp, No Primary Care Provider Unavailabl e Allergies No known active allergies Medications Medication Sig Dispensed Refills Start Date End Date Status diazepam (VALIUM) 5 mg tabletIndications:Pa annika attacks Take 1 tablet by mouth every 6 hours if needed. 30 tablet 0 09/19/2015 Active HYDROcodone-acetamin ophen, 5-325 mg, (NORCO) per tabletIndications:Ba ck spasm Take 1-2 tablets by mouth every 4 hours if needed for Pain. Max acetaminophen dose: 4000 mg in 24 hrs. 30 tablet 0 09/19/2015 Active fluticasone (50 mcg per actuation) nasal solution (FLONASE)Indications :Purulent postnasal drainage Inhale 1 [place] into both nostrils 2 times daily. 1 Bottle 11 09/19/2015 Active fluticasone (FLOVENT HFA) 220 mcg/Actuation inhalerIndications:B ronchitis Inhale 2 Puffs by mouth 2 times daily. 1 Inhaler 5 09/19/2015 Active montelukast (SINGULAIR) 10 mg tabletIndications:As thmatic bronchitis with acute exacerbation Take 1 tablet by mouth at bedtime. 90 tablet 3 09/19/2015 Active VENTOLIN HFA 90 mcg/actuation inhalerIndications:M oderate persistent asthma with acute exacerbation INHALE 2 PUFFS BY MOUTH FOUR TIMES A DAY IF NEEDED 18 g 0 06/12/2016 Active carisoprodol (SOMA) 350 mg tabletIndications:Ch ronic bilateral low back pain without sciatica Take 1 tablet by mouth 3 times daily. 60 tablet 0 04/03/2017 Active ibuprofen (ADVIL; MOTRIN) 600 mg tabletIndications:Ch ronic bilateral low back pain without sciatica Take 1 tablet by mouth every 6 hours if needed. 90 tablet 0 04/03/2017 Active pramipexole (MIRAPEX) 0.5 mg tabletIndications:Re stless leg syndrome, familial Take 1-2 tablets by mouth 2 times daily. 120 tablet 0 04/09/2017 Active levothyroxine (SYNTHROID) 175 mcg tabletIndications:Hy pothyroidism, unspecified type Take 1 tablet by mouth once daily. 30 tablet 0 06/25/2017 Active famciclovir (FAMVIR) 500 mg tablet Take 1 tablet by mouth 3 times daily for 7 days 21 tablet 0 03/29/2019 Active ondansetron (ZOFRAN ODT) 4 mg disintegrating tabletIndications:Na usea and vomiting, unspecified vomiting type Place 1 Tablet (4 mg) on the tongue two times daily. 10 Tablet 0 06/21/2022 Active Active Problems Problem Noted Date Diagnosed Date Moderate persistent asthma with acute exacerbati on 06/12/2016 Panic attacks 10/16/2014 Thyroid activity decreased 10/02/2014 Restless leg syndrome, familial 05/29/2014 Other and unspecified hyperlipidemia 08/14/2009 GERD (gastroesophageal reflux disease) 0 Irregular heart beat 08/14/2009 Unspecified examination 08/14/2009 Overview: Last pap 09/2007 Last Mammo 09/2008 Chronic low back pain Immunizations Name Administration Dates Next Due AMB Influenza, IIV4 PF (=>6 mos Flulaval,Fluzone Fluarix)(Flu Clinic Only) 01/16/2014 Influenza, IIV3 (Age >=3 years) 03/30/2013,04/02 Influenza, IIV4 12/22/2015,01/01/2015 Tdap 05/29/2014(Deferred: Patient Ref used) Family History Medical History Relation Name Comments Heart Disease Father Hyperlipidemia Father Stroke Father Cancer-breast Mother 32 yrs old Cancer-colon Paternal Grandfather 50's yr s old Cancer No Family History Cancer-ovarian No Family History Cancer-prostate No Family History Relation Name Status Comments Father Alive Mother (Age 34) Paternal Grandfather Social History Tobacco Use Types Packs/Day Years Used Date Smoking Tobacco: Never Smokeless Tobacco: Never Tobacco Cessation:Counseling Given: Yes Alcohol Use Standard Drinks/Week Comments Yes 0 (1 standard drink = 0.6 oz pur e alcohol) rare Sex and Gender Information Value Date Recorded Sex Assigned at Not on file Gender Identity Not on file Sexual Orientation Not on file Obstetrics History Last Filed Vital Signs Vital Sign Reading Time Taken Comments Blood Pressure 136/82 09/07/2022 9:01 PM CDT Pulse 83 09/07/2022 9:01 PM CDT Temperature 36.5 ??C (97.7 ??F) 09/07/2022 9:01 PM CD T Respiratory Rate 16 09/07/2022 9:01 PM CDT Oxygen Saturation 97% 09/07/2022 9:01 PM CDT Inhaled Oxygen Concentration - - Weight 137 kg (302 lb) 09/07/2022 9:01 PM CDT Height 167.6 cm (5' 6) 09/07/2022 9:01 PM CDT Body Mass Index 48.74 09/07/2022 9:01 PM CDT Plan of Treatment Health Maintenance Due Date Last Done Comments Tdap 10/02/1979 HIV for age 15-65 10/02/1983 Hepatitis C screening for age 18-79 1986 Tetanus booster 1988 Colonoscopy through age 75 2013 Mammogram for age 45-75 01/29/2017 01/30/20 16, 01/22/2015, 01/18/2014, Additional history exists BMI (ht and wt on same day) for age 18+ 02/10/2017 02/11/2016, 07/16/2015, 06/13/2015, Additional history exists Depression screening for age 12+ 02/10/2017 02/11/2016, 06/05/2015 Pap test for age 21-65 05/21/2018 6 (Completed outside of [facility]), 05/22/2011 Zoster (shingles) series for age 50+ (1 of 2) 2018 Lipids for age 45-75 02/10/2021 02/11/2016, 06/29/19 15 COVID-19 vaccine series (3 - 2023- season) 2022 11/28/2020, 06/19/2020 Influenza for age 50-64 11/21/2022 12/22/19 16, 01/01/2015, 01/16/2014, Additional history exists Pneumococcal series for age 6-64 Aged Out No longer eligible based on patient's age to complete this topic Medical Devices Implanted Type Area Converter Operator Device Identifier Shelf Expiration Date Model / Serial / Lot Prosth Torq [id number] - [id number] Implanted:Qty: 1 on 05/20/2005 at [facility] Ent Implants Right: Ear GYRUS ENT # / / Advance Directives Latest Code Status on File Code Status Date Activated Date Inactivated Comments Full Code 05/20/2005 7:01 AM 05/20/2005 4:28 PM Care Teams Hot Roll Laminator Relationship Specialty Start Date End Date Pcp, No . PCP - General 03/24/20 Brandan Burleson MD Gynecology Obstetrics and Gynecology 09/19/15
--- OUTSIDE RECORDS SUMMARY | 2023-05-09 18:18 | XMS_ITS | Encounter Summary ---
Author Name Unknown Organization [facility] Address [address] [place] [address] Care Team Providers Care Regional Business Development Manager Name Role Phone Roderick Morelos MD Unavailable [phone] Magno Wood MD Unavailable [phone] Sophie Ocasio AuD Unavailable [phone] Henny Rosales STORE DELI MANAGER AUTOMATIC DIE CUTTING MACHINE OPERATOR Unavailable Sharee Negron RD Unavailable Kaykay Duarte NP Primary Care Provider Christiane Rodríguez MD Unavailable Jing Cadena STORE DELI MANAGER MUSSEL OPENER Unavailable Radha Lopez [facility] Unavailable Geri Loza PA-C Unavailable Reason for Visit * Reason Comments RECHECK Encounter Details Date Type Department Care Team (Latest Contact Info) Description 04/23/2023 12:00 PM CAKE CUTTER MACHINE Virtual Visit M [facility] [address] [place] [address] Geri Loza PA-C [address] [place] [address] S/P laparoscopic sleeve gastrectomy Social History Tobacco Use Types Packs/Day Years [...] on file documented as of this encounter Last Filed Vital Signs Vital Sign Reading Time Taken Comments Blood Pressure - - Pulse - - Temperature - - Respiratory Rate - - Oxygen Saturation - - Inhaled Oxygen Concentration - - Weight 120.7 kg (266 lb) 04/23/2023 11:55 AM CAKE CUTTER MACHINE Height 167.6 cm (5' 6) 04/23/2023 11:55 AM CAKE CUTTER MACHINE Body Mass Index 42.93 04/23/2023 11:55 AM CAKE CUTTER MACHINE documented in this encounter Patient Instructions * Patient Instructions* Geri Loza PA-C - 04/23/2023 12:00 PM CAKE CUTTER MACHINE Plan: 1. RD visit today. - Start vitamin supplements per RD directions. - Advance diet per RD directions. 2. Follow-up: Geri Gaytan on 06/24/2023 3. Actigall prescription sent 4. B12 SL prescription sent 5. Pathology reviewed - N/A 6. Weight loss medications - on Carie previously for type II diabetes 7. Need to restart statin - will restart today 8. No lifting restrictions 9. Discussed no water submersion till incisions are completely healed. 10. Restart taking omeprazole daily until 3 months post op 11. Continue working towards fluid goal of 48-64oz daily 12. 3 months post op labs ordered CUTTER MACHINE documented in this encounter Progress Notes * Geri Loza PA-C - 04/23/2023 12:00 PM CST Virtual Visit Details Type of service: Video Visit Video Start Time: 12:04PM Video End Time: 12:30PM Originating Location (pt. Location): Home Distant Location (provider location): Off-site Platform used for Video Visit: [facility] Postoperative bariatric surgery visit. Patient underwent sleeve gastrectomy conversion RYBP around 5 weeks ago, on 03/18/[address] Escobedo . Tolerating liquids: 40oz of fluids daily and 60g of protein. Transitioned to soft foods without concern. Started to have vomiting when transitioned foods due to over eating and eating too fast. No vomiting in the past 2 weeks. Nausea rarely when over eating/drinking. No dysphagia Lightheadedness: At times - 1x week - typically with quick sit to stand Abdominal pain: No Bowel movements: Has a BM every 2-3 days. Stools are soft. Fevers/shakes/chills: No GERD: No symptoms. Not taking omeprazole Leg/calf pain: No Chest pain/SOB: No Walking: Limited due to hip pain - just get hip injections that has helped. Work: Back to work. Type II diabetes - Not taking on diabetes medication. BS fasting 100-120. Ht 1.676 m (5' 6) Wt 120.7 kg (266 lb) BMI 42.93 kg/m?? GENERAL: alert and no distress EYES: Eyes grossly normal to inspection. No discharge or erythema, or obvious scleral/conjunctival abnormalities. RESP: No audible wheeze, cough, or visible cyanosis. SKIN: Visible skin clear. No significant rash, abnormal pigmentation or lesions. NEURO: Cranial nerves grossly intact. Mentation and speech appropriate for age. PSYCH: Appropriate affect, tone, and pace of words Wt Readings from Last 5 Encounters: 04/23/23 120.7 kg (266 lb) 03/25/23 129.3 kg (285 lb) 03/24/23 130.5 kg (287 lb 11.2 oz) 03/18/23 130.9 kg (288 lb 9.3 oz) 02/17/23 132 kg (291 lb) Plan: 1. RD visit today. - Start vitamin supplements per RD directions. - Advance diet per RD directions. 2. Follow-up: Geri Gaytan on 06/24/2023 3. Actigall prescription sent 4. B12 SL prescription sent 5. Pathology reviewed - N/A 6. Weight loss medications - on Carie previously for type II diabetes 7. Need to restart statin - will restart today 8. No lifting restrictions 9. Discussed no water submersion till incisions are completely healed. 10. Restart taking omeprazole daily until 3 months post op 11. Continue working towards fluid goal of 48-64oz daily 12. 3 months post op labs ordered Geri Loza PA-C CUTTER MACHINE documented in this encounter Nursing Notes * Ángela Barton - 04/23/2023 12:00 PM CST Is the patient currently in the state of [place]? YES Visit mode:VIDEO If the visit is dropped, the patient can be reconnected by: VIDEO VISIT: Text to cell phone: Telephone Information: Will anyone else be joining the visit? NO (If patient encounters technical issues they should call [phone] :[phone]) How would you like to obtain your AVS? MyChart Are changes needed to the allergy or medication list? No Reason for visit: RECHECK Ángela Oralia VVF CUTTER MACHINE documented in this encounter Plan of Treatment Upcoming Encounters Date Type Department Care Team (Late st Contact Info) Description 06/24/2023 12:30 PM CDT Virtual Visit [facility] [address] [phone] Geri Loza PA-C [address] [place] [address] [phone] 06/24/2023 1:00 PM CDT Virtual Visit [facility] [address] [address] Sharee Negron, ÁNGEL [address] [place] [address] [phone] Scheduled Orders Name Type Priority Associated Diagnoses Orde r Schedule CBC with platelets Lab Routine S/P laparoscopic sleeve gastrectomy Expected: 06/22/2023 (Approximate), Expires: 04/23/2024 Comprehensive metabolic panel Lab Routine S/P laparoscopic sleeve gastrectomy Expected: 06/22/2023 (Approximate), Expires: 04/23/2024 Ferritin Lab Routine S/P laparoscopic sleeve gastrectomy Expected: 06/22/2023 (Approximate), Expires: 04/23/2024 Hemoglobin A1c Lab Routine S/P laparoscopic sleeve gastrectomy Expected: 06/22/2023 (Approximate), Expires: 04/23/2024 Lipid panel reflex to direct LDL Fasting Lab Routine S/P laparoscopic sleeve gastrectomy Expected: 06/22/2023 (Approximate), Expires: 04/23/2024 Parathyroid Hormone Intact Lab Routine S/P laparoscopic sleeve gastrectomy Expected: 06/22/2023 (Approximate), Expires: 04/23/2024 Vitamin A Lab Routine S/P laparoscopic sleeve gastrectomy Expected: 06/22/2023 (Approximate), Expires: 04/23/2024 Vitamin B12 Lab Routine S/P laparoscopic sleeve gastrectomy Expected: 06/22/2023 (Approximate), Expires: 04/23/2024 Vitamin D Deficiency Lab Routine S/P laparoscopic sleeve gastrectomy Expected: 06/22/2023 (Approximate), Expires: 04/23/2024 documented as of this encounter Goals Goal Patient Goal Type Associated Problems Recent Progress Patient-Stated? Author BRIAN PATHWAY SURGERY IS SCHEDULED Care Plan BRIAN PATHWAY SURGERY IS SCHEDULED No Luis A Escobedo MD documented as of this encounter Visit Diagnoses Diagnosis S/P laparoscopic sleeve gastrectomy documented in this encounter Additional Health Concerns Problem Noted Date Diagnosed Date BRIAN PATHWAY SURGERY IS SCHEDULED 10/15/2022 documented as of this encounter Care Teams Regional Business Development Manager Relationship Specialty Start Date End Date Kaykay Duarte TRAINING AND QUALITY MANAGER [address] [facility] [place] [address] PCP - General 10/15/22 Roderick Morelos MD [address] [place] [address] Cardiovascular Disease 02/03/22 Magno Wood MD 420 [facility] [address] [place], [place] [address] Otolaryngology 02/21/22 Sophie Ocasio AuD [address] [place] [address] [id number] Security Inspector Audiology 02/21/22 Henny Rosales, STORE DELI MANAGER AUTOMATIC DIE CUTTING MACHINE OPERATOR [address] [place] [phone] Assigned Heart and Vascular Provider 08/09/[address] [place] [address] [phone] Registered Dietitian Dietitian, Registered 09/02/22 Christiane Rodríguez MD [address] [phone] Otolaryngology 11/12/22 Jing Cadena, STORE DELI MANAGER MUSSEL OPENER 420 [facility] [address] [place], [place] [phone] Clinical Nurse Specialist Anesthesiology 01/15/23 Radah Lopez [facility] [address] [place] [address] [phone] Pharmacist Pharmacist 01/16/23 Geri Loza PA-C [address] [place] [address] [phone] Assigned Surgical Provider 04/16/23 documented as of this encounter
--- OUTSIDE RECORDS SUMMARY | 2023-05-09 18:19 | XMS_ITS | Encounter Summary ---
Author Name Unknown Organization [facility] Address [address] [place] [address] Care Team Providers Care Logistics Research Engineer Name Role Phone Roderick Morelos MD Unavailable [phone] Magno Wood MD Unavailable [phone] Sophie Ocasio AuD Unavailable [phone] Henny Rosales HOBBING PRESS OPERATOR PHYSICIAN PRESIDENT Unavailable [phone] Unavailable Kaykay Duarte SKIN DRIER Primary Care Provider Christiane Rodríguez MD Unavailable [phone] Jing Cadena HOBBING PRESS OPERATOR ADMISSIONS ASSISTANT Unavailable Radha Lopez [facility] Unavailable [phone] Luis A Escobedo MD Unavailable [phone] Geri Loza PA-C Unavailable [phone] Encounter Details Date Type Department Care Team (Late st Contact Info) Description 03/24/2023 MyC Medical Advice [facility] [address] [place] [address] Angélica Milligan Social History Tobacco Use Types Packs/Day Years Used Date Smoking Tobacco: Never Passive Smoke Exposure: Never Smokeless Tobacco: Never Alcohol Use Standard Drinks/Week Comments Not Currently 0 (1 standard drink = 0.6 oz pur e alcohol) socially PHQ-2 Answer Date Recorded PHQ-2 Score 0 03/25/2023 Adolescent Education Answer Date Record ed Getting School Help Needed Not on file 12/19 Sex and Gender Information Value Date Recorded Sex Assigned at Not on file Gender Identity Not on file Sexual Orientation Not on file documented as of this encounter Plan of Treatment Upcoming Encounters Date Type Department Care Team (Late st Contact Info) Description 06/24/2023 12:30 PM CDT Virtual Visit [facility] [address] [phone] Geri Loza PA-C [address] [place] [address] [phone] 06/24/2023 1:00 PM CDT Virtual Visit [facility] [address] [phone] Sharee Negron, RD [address] [place] [address] [phone] documented as of this encounter Goals Goal [...] documented as of this encounter Care Teams Logistics Research Engineer Relationship Specialty Start Date End Date Kaykay Duarte SKIN DRIER [address] [place] [address] PCP - General 10/15/22 Roderick Morelos MD [address] [place] [address] Cardiovascular Disease 02/03/22 Magno Wood MD 420 [facility] [address] [place], [place] [phone] Otolaryngology 02/21/22 Sophie Ocasio AuD [address] [place], [place] 763825 Net Web Developer Audiology 02/21/22 Henny Rosales, HOBBING PRESS OPERATOR PHYSICIAN PRESIDENT [address] [place] [address] Assigned Heart and Vascular Provider 08/09/[address] [place] [address] [phone] Registered Dietitian Dietitian, Registered 09/02/22 Christiane Rodríguez MD [address] [place] [address] 396 [place], [place] 634855 Otolaryngology 11/12/22 Jing Cadena, HOBBING PRESS OPERATOR ADMISSIONS ASSISTANT [address] [place] [address] 450 [place], [place] [phone] Clinical Nurse Specialist Anesthesiology 01/15/23 Radha Lopez, [facility] [address] [place] [address] [phone] Pharmacist Pharmacist 01/16/23 Luis A Escobedo MD [address] [place] [address] [address] [place], [place] 216865 Assigned Surgical Provider 02/07/23 04/15/23 Geri Loza PA-C [address] [place] [address] Assigned Surgical Provider 04/16/23 documented as of this encounter
--- OUTSIDE RECORDS SUMMARY | 2023-05-09 18:19 | XMS_ITS | Encounter Summary ---
Author Name Unknown Organization [place] Address [address] [place] [address] Care Team Providers Care Dough Machine Operator Name Role Phone Roderick Morelos MD Unavailable [phone] Magno Wood MD Unavailable [phone] Sophie Ocasio AuD Unavailable [phone] Henny Rosales COUNTRY PRINTER APPRENTICE WAIST FITTER Unavailable Sharee Negron RD Unavailable Kaykay Duarte PROFESSOR OF THEOLOGY Primary Care Provider Christiane Rodríguez MD Unavailable Jing Cadena COUNTRY PRINTER APPRENTICE VP PRODUCT MARKETING Unavailable [phone] [facility] Unavailable [phone] Luis A Escobedo MD Unavailable [phone] Reason for Visit * Reason Comments RECHECK Joseph Nutrition Encounter Details Date Type Department Care Team (Latest Contact Info) Description 03/25/2023 2:30 PM CONTINUOUS LINTER DRIER OPERATOR Virtual Visit [facility] [address] [place] [address] Sharee Negron, RD [address] [place] [address] Nutritional counseling (Primary Dx); S/P laparoscopic sleeve gastrectomy; Class 3 severe obesity with serious comorbidity and body mass index (BMI) of 45.0 to 49.9 in adult, unspecified obesity type (H); Type 2 diabetes mellitus without complication, without long-term current use of insulin (H) Social History Tobacco Use Types Packs/Day Years [...] - Inhaled Oxygen Concentration - - Weight 129.3 kg (285 lb) 03/25/2023 2:15 PM CONTINUOUS LINTER DRIER OPERATOR Height 167.6 cm (5' 6) 03/25/2023 2:15 PM CONTINUOUS LINTER DRIER OPERATOR Body Mass Index 46 03/25/2023 2:15 PM CONTINUOUS LINTER DRIER OPERATOR documented in this encounter Patient Instructions * Patient Instructions* Sharee Negron, RD - 03/25/2023 2:30 PM CONTINUOUS LINTER DRIER OPERATOR Goals: 1) Follow diet advancement schedule below. 2) Work towards 60 gm protein/day. 3) Consume 48-64+ oz fluids daily- between meals only once on puree diet 4) Eat slowly (>20 min/meal), chewing well to smooth consistency once on the bariatric soft diet. 5) Limit portions to ~1/4/meal plus 1-2 protein shakes/day as needed 6) Start chewable/liquid multivitamin/minerals daily - [place] 2 per day - Add B12 next month - Add Vitamin D next month - Add chewable calcium citrate if needed next month (want 8759-5153 mg/day) Post-op Diet Advancement Schedule: Pureed Diet (stage 3): START April 01 Soft Diet (stage 4): START April 15 Regular Diet (stage 5): START May 13 Post-op Diet Handouts: Diet Guidelines after Weight-loss Surgery [email or web address] Your Stage 1 Diet: Clear Liquids [email or web address] Your Stage 2 Diet: Low-fat Full Liquids [email or web address] Your Stage 3 Diet: Pureed Foods [email or web address] Pureed Recipes [email or web address] Your Stage 4 Diet: Soft Foods [email or web address] Your Stage 5 Diet: Regular Foods [email or web address] Supplements after Sleeve Gastrectomy, Gastric Bypass or Single Anastomosis Duodenal Switch [email or web address] Keeping Track of Fluids [email or web address] Exercise Guidelines after Weight Loss Surgery (1st 4-6 weeks) [email or web address] Follow-Up: April 20 at 10:00 am SIVA Terraazs (Duncan), ÁNGEL, LD Clinic #: [phone] INUOUS LINTER DRIER OPERATOR documented in this encounter Progress Notes * Sharee Negron RD - 03/25/2023 2:30 PM CST Video-Visit Details Type of service: Video Visit Video Start Time: 2:20 pm Video End Time: 2:50 pm Originating Location (pt. Location): Home Distant Location (provider location): Offsite (providers home) Platform used for Video Visit: Need Nutrition Assessment Reason For Visit: Billie Connolly is a 52 year old female presenting today for nutrition follow-up, 1 week s/p conversion of SG to RNYGB with Dr. Escobedo 03/18/23. Patient referred by Geri Loza PA-C on August 15, 2022. Anthropometrics Pre-op Weight: 338 lbs Weight 08/15/22: 309 lbs Day of Surgery Weight(03/18/23): 288 lbs Estimated body mass index is 46 kg/m?? as calculated from the following: Height as of this encounter: 1.676 m (5' 6). Weight as of this encounter: 129.3 kg (285 lb). Current Weight: 285 lbs Weight loss: -24 lbs from initial consult 08/15/22; -3 lbs from day of surgery Current Vitamins/Minerals: [place] MVI with iron - Will start 2 per day Also has SL B12 500 mcg daily Vitamin D 5,000 international unit(s)/day Calcium: protein shakes Nutrition History NKFA Not huge on fish/seafood - does eat tuna Pt reports consuming and tolerating bariatric clear and low-fat full liquid diets. No vomiting/nausea. No dysphagia. Did notice some cramping with tomato soup. Fluid intake appears adequate, consuming 48-64 oz/day. Also meeting protein goals. Consuming soups, protein shakes, cream of wheat, oatmeal (reviewed no oatmeal until soft diet), sugar-free pudding, sugar-free popsicles, sugar-free jello. Typical day: 1 1/2 protein shakes, 1 pudding, 2-3 bottles of water, a little soup 3-4x/day (maybe 1cup volume total) Additional information: FT - Lung Puller Activity: limited by pain (needs hip replacement per pt) Nutrition Prescription: Grams Protein: 60 (minimum) Amount of Fluid: 48-64 oz Nutrition Diagnosis Food and nutrition-related knowledge deficit r/t lack of prior exposure to diet advancements beyondbariatric low-fat full liquid diet aeb recent bariatric surgery and pt interest in diet education/review Intervention Intervention At Appointment: Materials/education provided on bariatric pureed and soft diets, protein intake, fluid intake, eating pace, portion control, avoiding excess sugar and fat, recommended vitamin/mineral supplements. Patient demonstrates understanding. Expected Engagement: good Goals: 1) Follow diet advancement schedule below. 2) Work towards 60 gm protein/day. 3) Consume 48-64+ oz fluids daily- between meals only once on puree diet 4) Eat slowly (>20 min/meal), chewing well to smooth consistency once on the bariatric soft diet. 5) Limit portions to ~1/4/meal plus 1-2 protein shakes/day as needed 6) Start chewable/liquid multivitamin/minerals daily - [place] 2 per day - Add B12 next month - Add Vitamin D next month - Add chewable calcium citrate if needed next month (want 5920-9546 mg/day) Post-op Diet Advancement Schedule: Pureed Diet (stage 3): START April 01 Soft Diet (stage 4): START April 15 Regular Diet (stage 5): START May 13 Post-op Diet Handouts: Diet Guidelines after Weight-loss Surgery [email or web address] Your Stage 1 Diet: Clear Liquids [email or web address] Your Stage 2 Diet: Low-fat Full Liquids [email or web address] Your Stage 3 Diet: Pureed Foods [email or web address] Pureed Recipes [email or web address] Your Stage 4 Diet: Soft Foods [email or web address]://[email or web address] Your Stage 5 Diet: Regular Foods [email or web address] Supplements after Sleeve Gastrectomy, Gastric Bypass or Single Anastomosis Duodenal Switch [email or web address] Keeping Track of Fluids [email or web address] Exercise Guidelines after Weight Loss Surgery (1st 4-6 weeks) [email or web address] Follow-Up: April 20 at 10:00 am Time spent with patient: 30 minutes. SIVA Peacock,, RD, LD INUOUS LINTER DRIER OPERATOR documented in this encounter Nursing Notes * [place] - 03/25/2023 2:30 PM CST Is the patient currently in the state of [place]? YES Visit mode:VIDEO If the visit is dropped, the patient can be reconnected by: VIDEO VISIT: Text to cell phone: Telephone Information: Will anyone else be joining the visit? NO (If patient encounters technical issues they should call [phone]) How would you like to obtain your AVS? MyChart Are changes needed to the allergy or medication list? N/A Reason for visit: RECHECK ([facility] Nutrition) [place] Ramirez VVF INUOUS LINTER DRIER OPERATOR documented in this encounter Plan of Treatment Upcoming Encounters Date Type Department Care Team (Late st Contact Info) Description 06/24/2023 12:30 PM CDT Virtual Visit [facility] [address] [phone] Geri Loza PA-C [address] [place] [address] 06/24/2023 1:00 PM CDT Virtual Visit [facility] [address] [address] Sharee Negron, RD [address] [place] [address] documented as of this encounter Goals Goal Patient Goal Type Associated Problems Recent Progress Patient-Stated? Author JOSEPH PATHWAY SURGERY IS SCHEDULED Care Plan JOSEPH PATHWAY SURGERY IS SCHEDULED No Luis A Escobedo MD documented as of this encounter Visit Diagnoses Diagnosis Nutritional counseling- Primary S/P laparoscopic sleeve gastrectomy Class 3 severe obesity with serious comorbidity and body mass index (BMI) of 45.0 to 49.9 in adult, unspecified obesity type (H) Type 2 diabetes mellitus without complication, without long-term current use of insulin (H) documented in this encounter Additional Health Concerns Problem Noted Date Diagnosed Date JOSEPH PATHWAY SURGERY IS SCHEDULED 10/15/2022 documented as of this encounter Care Teams Dough Machine Operator Relationship Specialty [place] [address] [place] [address] PCP - General 10/15/22 Roderick Morelos MD [address] [place] [id number] Cardiovascular Disease 02/03/22 Magno Wood MD [address] [place] [address] [address] [place], [place] [address] Otolaryngology 02/21/22 Sophie Ocasio AuD [address] [place] [address] 173485 Director Data Analytics Audiology 02/21/22 Henny Rosales, COUNTRY PRINTER APPRENTICE WAIST FITTER [address] [place] [phone] Assigned Heart and Vascular Provider 08/09/[address] [place] [address] [phone] Registered Dietitian Dietitian, Registered 09/02/22 Christiane Rodríguez MD [address] [place] [address] 248185 Otolaryngology 11/12/22 Jing Cadena, COUNTRY PRINTER APPRENTICE VP PRODUCT MARKETING [address] [place] [address] [address] [place], [place] 243225 Clinical Nurse Specialist Anesthesiology 01/15/23 Radha Lopez, [facility] [address] [place] [address] [phone] Pharmacist Pharmacist 01/16/23 Luis A Escobedo MD [address] [place] [address] [address] [place], [place] 930495 Assigned Surgical Provider 02/07/23 04/15/23 documented as of this encounter
--- OUTSIDE RECORDS SUMMARY | 2023-05-09 18:19 | XMS_ITS | Encounter Summary ---
Author Name Unknown Organization [place] Address [address] [place] [address] Care Team Providers Care Convention Planner Name Role Phone Roderick Morelos MD Unavailable [phone] Magno Wood MD Unavailable [phone] Sophie Ocasio AuD Unavailable [phone] Henny Rosales HAND RIVETER SUPERVISOR COATING Unavailable Sharee Negron RD Unavailable Kaykay Duarte SENIOR COUNSEL Primary Care Provider Christiane Rodríguez MD Unavailable [phone] Jing Cadena HAND RIVETER ASSEMBLER PRODUCT Unavailable Radha Lopez [facility] Unavailable [phone] Luis A Escobedo MD Unavailable [phone] Geri Loza PA-C Unavailable [phone] Encounter Details Date Type Department Care Team (Late st Contact Info) Description 04/14/2023 [facility] Medical Advice [facility] [address] 4th [place] [address] Tanya Larsen RN Social History Tobacco Use Types Packs/Day Years [...] Description 06/24/2023 12:30 PM CDT Virtual Visit [facility] [address] [phone] Geri Loza PA-C [address] [place] [address] [phone] 06/24/2023 1:00 PM CDT Virtual Visit [facility] [address] [address] Sharee Negron, RD [address] [place] [address] [phone] documented as of this encounter Goals Goal [...] documented as of this encounter Care Teams Convention Planner Relationship Specialty Start Date End Date Kaykay Duarte SENIOR COUNSEL [address] [place] [address] PCP - General 10/15/22 Roderick Morelos MD [address] [place] [address] Cardiovascular Disease 02/03/22 Magno Wood MD 420 [facility] 396 [place], [place] 4575[address] Otolaryngology 02/21/22 Sophie Ocasio AuD [address] [place] [address] [phone] Satellite Installer Audiology 02/21/22 Henny Rosales, HAND RIVETER SUPERVISOR COATING [address] [place] [address] Assigned Heart and Vascular Provider 08/09/[address] [place] [address] [phone] Registered Dietitian Dietitian, Registered 09/02/22 Christiane Rodríguez MD [address] [place] [address] 396 [place], [place] 496945 Otolaryngology 11/12/22 Jing Cadena, HAND RIVETER ASSEMBLER PRODUCT 420 [facility] 450 [place], [place] 503095 Clinical Nurse Specialist Anesthesiology 01/15/23 Radha Lopez, [facility] [address] [place] [address] [phone] Pharmacist Pharmacist 01/16/23 Luis A Escobedo MD 420 [facility] 195 [place], [place] 802885 Assigned Surgical Provider 02/07/23 04/15/23 Geri Loza PA-C 9 [place] [address] Assigned Surgical Provider 04/16/23 documented as of this encounter
--- OUTSIDE RECORDS SUMMARY | 2023-05-09 18:19 | XMS_ITS | Encounter Summary ---
Author Name Unknown Organization [place] Address [address] [place] [address]. [place] [address] Care Team Providers Care Office Support Name Role Phone Roderick Morelos MD Unavailable [phone] Magno Wood MD Unavailable [phone] Sophie Ocasio AuD Unavailable [phone] Henny Rosales OIL PIPELINE DISPATCHER GAS PLANT WORKER Unavailable Sharee Negron RD Unavailable Kaykay Duarte INSTRUCTIONAL SUPPORT SPECIALIST Primary Care Provider [phone] Christiane Rodríguez MD Unavailable [phone] Jing Cadena OIL PIPELINE DISPATCHER EHS TEACHER Unavailable Radha Lopez [facility] Unavailable [phone] Luis A Escobedo MD Unavailable [phone] Encounter Details Date Type Department Care Team (Late st Contact Info) Description 03/21/2023 Orders Only [facility] - Surgical Specialties Service Line [facility]0 [place] [address] Luis A Escobedo MD 420 [facility] 195 [place] [address] S/P gastric bypass (Primary Dx) Social History Tobacco Use Types Packs/Day Years Used Date Smoking Tobacco: Never Passive Smoke Exposure: Never Smokeless Tobacco: Never Alcohol Use Standard Drinks/Week Comments Not Currently 0 (1 standard drink = 0.6 oz pur e alcohol) socially PHQ-2 Answer Date Recorded PHQ-2 Score 0 02/17/2023 Adolescent Education Answer Date Record ed Getting School Help Needed Not on file 12/19 Sex and Gender Information Value Date Recorded Sex Assigned at Not on file Gender Identity Not on file Sexual Orientation Not on file documented as of this encounter Plan of Treatment Upcoming Encounters Date Type Department Care Team (Late st Contact Info) Description 06/24/2023 12:30 PM CDT Virtual Visit [facility] [address] [address] Geri Loza PA-C [address] [place] [address] [phone] 06/24/2023 1:00 PM CDT Virtual Visit [facility] [address] [phone] Sharee Negron, RD [address] [place] [address] documented as of this encounter Goals Goal Patient Goal Type Associated Problems Recent Progress Patient-Stated? Author BRIAN PATHWAY SURGERY IS SCHEDULED Care Plan BRIAN PATHWAY SURGERY IS SCHEDULED No Luis A Escobedo MD documented as of this encounter Visit Diagnoses Diagnosis S/P gastric bypass- Primary Bariatric surgery status documented in this encounter Additional Health Concerns Problem Noted Date Diagnosed Date BRIAN PATHWAY SURGERY IS SCHEDULED 10/15/2022 documented as of this encounter Care Teams Office Support Relationship Specialty Start [place] [address] [place] [address] PCP - General 10/15/22 Roderick Morelos MD [address] [place] [address] Cardiovascular Disease 02/03/22 Magno Wood MD [address] [place] [address] 396 [place], [place] 447845 Otolaryngology 02/21/22 Sophie Ocasio, Nick [address] [place] [address] [phone] Hunting Sales Leader Audiology 02/21/22 Henny Rosales, OIL PIPELINE DISPATCHER GAS PLANT WORKER [address] [place] [phone] Assigned Heart and Vascular Provider 08/09/[address] [place] [address] [phone] Registered Dietitian Dietitian, Registered 09/02/22 Christiane Rodríguez MD [address] [place] [address] 396 [place], [place] [phone] Otolaryngology 11/12/22 Jing Cadena, OIL PIPELINE DISPATCHER EHS TEACHER [address] [place] [address] 450 [place], [place] [phone] Clinical Nurse Specialist Anesthesiology 01/15/23 Rdaha Lopez, [facility] [address] [place] [address] 197675 Pharmacist Pharmacist 01/16/23 Luis A Escobedo MD [address] [place] [address] 195 [place], [place] 165295 Assigned Surgical Provider 02/07/23 04/15/23 documented as of this encounter
--- OUTSIDE RECORDS SUMMARY | 2023-05-09 18:19 | XMS_ITS | Encounter Summary ---
Author Name Unknown Organization [place] Address [address] [place] [address] Care Team Providers Care Internal Communications Intern Name Role Phone Roderick Morelos MD Unavailable [phone] Magno Wood MD Unavailable [phone] Sophie Ocasio AuD Unavailable Henny Rosales GAMING DEPARTMENT HEAD FILTER CHANGING TECHNICIAN Unavailable Sharee Negron RD Unavailable Kaykay Duarte HOOKMAN Primary Care Provider Christiane Rodríguez MD Unavailable [phone] Jing Cadena GAMING DEPARTMENT HEAD TAMALE MACHINE FEEDER Unavailable Radha Lopez [facility] Unavailable Luis A Escobedo MD Unavailable Encounter Details Date Type Department Care Team (Late st Contact Info) Description 03/20/2023 Telephone [facility] Services - Surgical Specialties Service Line [address] [place] [phone] Jose L Grayson MD [address] [place] [address] Social History Tobacco Use Types Packs/Day Years [...] on file documented as of this encounter Miscellaneous Notes * Telephone Encounter - Jose L Grayson MD - 03/20/2023 6:09 AM MANAGER RESPIRATORY Telephone Encounter Having severe pain all night (12/30) in the upper abdomen. Has tried taking oxycodone 5mg ( taking 5mg every 3 hours) without relief. She is also taking hyocyamine and 400mg of tylenol. Some posterior neck pain. Denies nausea or vomiting, chest pain, shortness of breath. Tolerating liquids. Not passing gas or having Bms. Reports that while in hospital was taking higher doses of narcotics (10mg ofoxycodone). Recommended increasing tylenol dose starting now. Will discuss with Dr. Escobedo's team regarding request for more narcotics. - - - - - - - - - - - - - - - - - - Jose L Grayson MD [facility] General Surgery PGY-3 03/20/2023 See [facility] for on-call pager information: [facility] Paging/Directory - Surgery General /[facility] GER RESPIRATORY documented in this encounter Plan of Treatment Upcoming Encounters Date Type Department Care Team (Late st Contact Info) Description 06/24/2023 12:30 PM CDT Virtual Visit [facility] [address] [place] [address] Geri Loza PA-C [address] [place] [address] 06/24/2023 1:00 PM CDT Virtual Visit [facility] [address] [place] [address] [place] [address] [phone] documented as of this encounter Goals Goal [...] documented as of this encounter Care Teams Internal Communications Intern Relationship Specialty [place] [address] [facility] [place] [address] PCP - General 10/15/22 Roderick Morelos MD [address] [place] [address] Cardiovascular Disease 02/03/22 Magno Wood MD [address] [place] [address] [phone] Otolaryngology 02/21/22 Sophie Ocasio AuD [address] [place] [address] 595015 Lowerator Operator Audiology 02/21/22 Henny Rosales APRN FILTER CHANGING TECHNICIAN [address] [place] [phone] Assigned Heart and Vascular Provider 08/09/[address] [place] [address] 296885 Registered Dietitian Dietitian, Registered 09/02/22 Christiane Rodríguez MD 420 [facility] 396 [place], [place] [address]55 Otolaryngology 11/12/22 Jing Cadena, GAMING DEPARTMENT HEAD TAMALE MACHINE FEEDER 420 [facility] 450 [place], [place] 083275 Clinical Nurse Specialist Anesthesiology 01/15/23 Radha Lopez, [facility] [address] [place] [address] [phone] Pharmacist Pharmacist 01/16/23 Luis A Escobedo MD 420 [facility] 195 [place], [place] [phone] Assigned Surgical Provider 02/07/23 04/15/23 documented as of this encounter
--- OUTSIDE RECORDS SUMMARY | 2023-05-09 18:19 | XMS_ITS | Encounter Summary ---
Author Name Unknown Organization [facility] Address [address] [place] [address] Care Team Providers Care Grain Packer Name Role Phone Roderick Morelos MD Unavailable Magno Wood MD Unavailable [phone] Sophie Ocasio AuD Unavailable [phone] Henny Rosales PEDIATRIC NURSE PRACTITIONER DISTILLATION OPERATOR HELPER Unavailable Sharee Negron RD Unavailable Kaykay Duarte COMPUTER DISCOVERY TEACHER Primary Care Provider Christiane Rodríguez MD Unavailable [phone] Jing Cadena PEDIATRIC NURSE PRACTITIONER EXECUTIVE BUSINESS COACH Unavailable [phone] Radha Lopez [facility] Unavailable [phone] Luis A Escobedo MD Unavailable [phone] Geri Loza PA-C Unavailable [phone] Encounter Details Date Type Department Care Team (Late st Contact Info) Description 04/02/2023 MyC Medical Advice [facility] [address] 4th [place] [address] Tanya Larsen RN Social History [...] Description 06/24/2023 12:30 PM CDT Virtual Visit [facility] [address] [phone] Geri Loza PA-C [address] [place] [address] [phone] 06/24/2023 1:00 PM CDT Virtual Visit [facility] [address] [address] Sharee Negron, RD [address] [place] [address] [phone] documented as of this encounter Goals Goal [...] documented as of this encounter Care Teams Grain Packer Relationship Specialty Start Date End Date Kaykay Duarte COMPUTER DISCOVERY TEACHER [id number] [facility] [place] [address] PCP - General 10/15/22 Roderick Morelos MD [address] [place] [address] Cardiovascular Disease 02/03/22 Magno Wood MD 420 [facility] [address] [place], [place] [phone] Otolaryngology 02/21/22 Sophie Ocasio AuD [address] [place] [address] [phone] Adult Nurse Practitioner Audiology 02/21/22 Henny Rosales, PEDIATRIC NURSE PRACTITIONER DISTILLATION OPERATOR HELPER [address] [place] [address] Assigned Heart and Vascular Provider 08/09/[address] [place] [address] [phone] Registered Dietitian Dietitian, Registered 09/02/22 Christiane Rodríguez MD [address] [place] [address] 396 [place], [place] [phone] Otolaryngology 11/12/22 Jing Cadena, PEDIATRIC NURSE PRACTITIONER EXECUTIVE BUSINESS COACH 420 [facility] 450 [place], [place] 6[address] Clinical Nurse Specialist Anesthesiology 01/15/23 Radha Lopez, [facility] [address] [place] [address] [phone] Pharmacist Pharmacist 01/16/23 Luis A Escobedo MD 420 [facility] 195 [place], [place] 208[address] Assigned Surgical Provider 02/07/23 04/15/23 Geri Loza PA-C 9 [place] [address] Assigned Surgical Provider 04/16/23 documented as of this encounter
--- OUTSIDE RECORDS SUMMARY | 2023-05-09 18:19 | XMS_ITS | Encounter Summary ---
Author Name Unknown Organization [facility] Address [address] [place] [address] Care Team Providers Care Instructional Facilitator Name Role Phone Roderick Morelos MD Unavailable [phone] Magno Wood MD Unavailable [phone] Sophie Ocasio AuD Unavailable Henny Rosales OPERATIONS RESEARCH DIRECTOR AUTOMATIC DRILLING MACHINE OPERATOR Unavailable [phone] Unavailable Kaykay Duarte ELECTRICAL ENGINEERING DIRECTOR Primary Care Provider Christiane Rodríguez MD Unavailable Jing Cadena OPERATIONS RESEARCH DIRECTOR NIPPING MACHINE OPERATOR Unavailable Radha Lopez [facility] Unavailable Luis A Escobedo MD Unavailable [phone] Reason for Visit * Reason Comments Follow Up 1 wk postop Encounter Details Date Type Department Care Team (Late st Contact Info) Description 03/24/2023 10:30 AM ENVIRONMENTAL HEALTH SPECIALIST Office Visit [facility] [address]th [place] [address] Alia Flowers NP [address] [place] [address] S/P laparoscopic sleeve gastrectomy (Primary Dx); Class [...] Comments Blood Pressure 124/78 03/24/2023 10:20 AM ENVIRONMENTAL HEALTH SPECIALIST Pulse 70 03/24/2023 10:20 AM ENVIRONMENTAL HEALTH SPECIALIST Temperature 36.8 ??C (98.2 ??F) 03/24/2023 1 0:20 AM ENVIRONMENTAL HEALTH SPECIALIST Respiratory Rate 16 03/24/2023 10:2 0 AM ENVIRONMENTAL HEALTH SPECIALIST Oxygen Saturation 99% 03/24/2023 10: 20 AM ENVIRONMENTAL HEALTH SPECIALIST Inhaled Oxygen Concentration - - Weight 130.5 kg (287 lb 11.2 oz) 2023 10:20 AM ENVIRONMENTAL HEALTH SPECIALIST Height 165.1 cm (5' 5) 03/24/2023 10:2 0 AM ENVIRONMENTAL HEALTH SPECIALIST Body Mass Index 47.88 03/24/2023 10:20 AM ENVIRONMENTAL HEALTH SPECIALIST documented in this encounter Patient Instructions * Patient Instructions* Alia Flowers NP - 03/24/2023 10:30 AM ENVIRONMENTAL HEALTH SPECIALIST Thank you for allowing us the privilege of caring for you. We hope we provided you with the excellent service you deserve. Please let us know if there is anything else we can do for you so that we can be sure you are completely satisfied with your care experience. To ensure the quality of our services you may be receiving a patient satisfaction survey from an independent patient satisfaction monitoring company. The greatest compliment you can give is a Likely to Recommend Your visit was with Alia Flowers NP today. Instructions per today's visit: Antonio Connolly, it was great to visit with you today. Here is a review of our visit. If our clinical services consultant is not able to reach you please call [phone] to schedule your next appointments. Try flavorless protein powder or collagen powder Continue taking omeprazole daily until follow up- will consider stopping at that time Continue to hold mounjaro Start checking blood sugars - fasting in the morning Check lab today Follow up Geri Loza PA-C 04/20/2022 Information about Video Visits with Trudev: video visit information If you are asked by your clinic team to have your blood pressure checked: [facility] do offer several locations for blood pressure checks. Please follow the below link to schedule an appointment. Scheduling an appointment at the pharmacy for a blood pressure check is now preferred. Appointment Plus (appointment-plus.Artify It) Important contact and scheduling information: Please call our contact center at [phone] to schedule your next appointments. To find a lab location near you, please call . For any nursing questions or concerns call Angélica Milligan LPN at [phone] or Henny Lobo RN [phone] Please call during clinic hours Thursday through Thursday 8:00a - 4:00p if you have questions or you can contact us via Logic[employer]kert at anytime and we will reply during clinic hours. Lab results will be communicated through My Chart or letter (if My Chart not used). Please call theclinic if you have not received communication after 1 week or if you have any questions.? Clinic Meal Replacement Products: Here is the link to our new e-store where you can purchase our meal replacement products [facility] E-Store [email or web address] The one week starter kit is a great way to sample a variety of products and see what works for you. If you want more information about the product go to: [employer] If you are an employee or [facility] or [facility] please contact your care team for a 10% estore discount Free Shipping for orders over $75 Benefits of meal replacements products: Portion and calorie control Improved nutrition Structured eating Simplified food choices Avoid contact with trigger foods Interested in working with a health assistant softball coach? Health coaches work with you to improve your overall health and wellbeing. They look at the whole person, and may involve discussion of different areas of life, including, but not limited to the four pillars of health (sleep, exercise, nutrition, and stress management). Discuss with your care team if you would like to start working a health assistant softball coach. Health Coaching-3 Pack: Schedule by calling [phone] ?? $99 for three health coaching visits ?? Visits may be done in person or via phone ?? Coaching is a partnership between the assistant softball coach and the client; Coaches do not prescribe or diagnose ?? Coaching helps inspire the client to reach his/her personal goals 24 Week Healthy Lifestyle Plan: Our mission in the 24-week Healthy Lifestyle Plan is to provide you with individualized care by giving you the tools, education and support you need to lose weight and maintain a healthy lifestyle. In your 24-week journey, you???ll be supported by a dedicated weight loss team that includes registered dietitians, medical weight management providers, health coaches, and nurses -- all with special expertise in weight loss -- to help you every step of the way. Monthly meetings with your registered dietetic technician or medical weight management provider help to review your progress, update your care plan, and make any adjustments needed to ensure success. Between these visits, weekly and bi-weekly health assistant softball coach visits will help you focus on the four pillars of weight loss -- stress, sleep, nutrition, and exercise -- and how you can best adapt each to achieve sustainable weight loss results. In addition, you will be given exclusive access to online wellbeing classes through [employer]. Your initial visit will be with a medical weight management provider who will help to understand your weight loss goals and ensure this program is the right fit for you. Please let our team know if you are interested in the 24 week plan by sending a message to your care team or calling [phone] schedule. [place] [facility] Get Moving Program Our team of physical therapists is trained to help you understand and take control of your condition. They will perform a thorough evaluation to determine your ability for activity and develop a customized plan to fit your goals and physical ability. Scheduling: Unsure if the Get Moving program is right for you? Discuss the program with your medical provider or breastfeeding educator. You can also call us at [phone] to ask questions or schedule an appointment. [facility] Get Moving Program [facility] Diabetes Prevention Program (DPP) If you have prediabetes and Medicare please contact us via MyChart to learn more about the DiabetesPrevention Program (DPP) Program Details: [facility] offers the year-long Diabetes Prevention Program (DPP). The program helps you to make lifestyle changes that prevent or delay type 2 diabetes by supporting healthy eating, increasedphysical activity, stress reduction and use of coping skills. On average, previous [facility] DPP cohorts have lost and maintained at least 5% of their starting weight throughout the program and averaged more than 150 minutes of physical activity per week. Participants meet weekly for one-hour group sessions over sixteen weeks, every other week for the next 8 weeks, and monthly for the last six months. A year-long maintenance program is also available for participants who complete the first year. Location & Cost: During the COVID-19 Public Health Emergency, the program is offered virtually. When in-person classes can resume, they will be held at [facility]. For people with Medicare, the program is covered in full. A self-pay option will also be available for those with non-Medicare insurance plans. To work with a Behavioral Health Psychologist: Call to schedule: John Lin - Marleni Tomlinson - Love Valdes - Rosie Henderson - Liana Lyons PhD (cannot accept Medicare) [phone] Thank you, [facility] Comprehensive Weight Management Team RONMENTAL HEALTH SPECIALIST documented in this encounter Progress Notes * Alia Flowers NP - 03/24/2023 10:30 AM CST Postoperative bariatric surgery visit. Patient underwent sleeve to RYNGB with hiatal hernia repair-1 week ago. 03/18/2023 Dr. Escobedo. Sleeve done at [facility] - recurrent and persistent obesity with GERD. EGD showed large sleeve. High weight 350lb. Tolerating liquids: no issues, adequate hydration and protein Lightheadedness: none Abdominal pain: additional oxy sent 03/21/2023, pain is much better now - not needing oxy any more Bowel movements: normal, no concerns, stopped senna Fevers/shakes/chills: none GERD: none stopped Taking omeprazole- was taking 40mg 1-2 times daily Leg/calf pain: none Walking a lot How many opioid pain medications used after surgery? 18 What did you do with extra pills? 6 at home Were any opioid pain medication refills provided after surgery? Were any opioid pain medications needed after 30 days postop? BP 124/78 (BP Location: Left arm, Patient Position: Sitting, Cuff Size: Adult Large) Pulse 70 Temp 98.2 ??F (36.8 ??C) (Oral) Resp 16 Ht 1.651 m (5' 5) Wt 130.5 kg (287 lb 11.2 oz) SpO2 99% BMI 47.88 kg/m?? Wt Readings from Last 5 Encounters: 03/24/23 130.5 kg (287 lb 11.2 oz) 03/18/23 130.9 kg (288 lb 9.3 oz) 02/17/23 132 kg (291 lb) 02/06/23 132 kg (291 lb) 01/29/23 132.2 kg (291 lb 8 oz) NAD Overall looks well Incisions c/d/i; non-tender Plan: 1. RD visit today. 2. Start vitamin supplements per RD directions. 3. Advance diet per RD directions. 4. Follow-up: 04/20/23 5. Actigall prescription- declines at this time - pill burden 6. B12 SL or injection 7. Pathology not done with [facility] 8. Weight loss medications - mounjaro for blood sugar control preop 9. Need to restart statin? Try flavorless protein powder or collagen powder Continue taking omeprazole daily until follow up- will consider stopping at that time Continue to hold mounjaro Start checking blood sugars - fasting in the morning Check lab today Follow up Geri Loza PA-C 04/20/2023 LEAH Madsen [facility] [place] RONMENTAL HEALTH SPECIALIST documented in this encounter Nursing Notes * Cresencio Ellison - 03/24/2023 10:30 AM CST Chief Complaint Patient presents with Follow Up 1 wk postop Vitals: 03/24/23 1020 BP: 124/78 BP Location: Left arm Patient Position: Sitting Cuff Size: Adult Large Pulse: 70 Resp: 16 Temp: 98.2 ??F (36.8 ??C) TempSrc: Oral SpO2: 99% Weight: 130.5 kg (287 lb 11.2 oz) Height: 1.651 m (5' 5) Body mass index is 47.88 kg/m??. Cresencio Ellison NRP RONMENTAL HEALTH SPECIALIST documented in this encounter Plan of Treatment Upcoming Encounters Date Type Department Care Team (Late st Contact Info) Description 06/24/2023 12:30 PM CDT Virtual Visit [facility] [address] [phone] Geri Loza PA-C [address] [place] [address] [phone] 06/24/2023 1:00 PM CDT Virtual Visit [facility] [address] [phone] Sharee Negron, ÁNGEL [address] [place] [address] [phone] Scheduled Orders Name Type Priority Associated Diagnoses Orde r Schedule Basic metabolic panel Lab Routine S/P laparoscopic sleeve gastrectomy Class 3 severe obesity with serious comorbidity and body mass index (BMI) of 45.0 to 49.9 in adult, unspecified obesity type (H) Type 2 diabetes mellitus without complication, without long-term current use of insulin (H) Expected: 03/24/2023 (Approximate), Expires: 03/24/2024 Hemoglobin A1c Lab Routine S/P laparoscopic sleeve gastrectomy Class 3 severe obesity with serious comorbidity and body mass index (BMI) of 45.0 to 49.9 in adult, unspecified obesity type (H) Type 2 diabetes mellitus without complication, without long-term current use of insulin (H) Expected: 03/24/2023 (Approximate), Expires: 03/24/2024 documented as of this encounter Goals Goal Patient Goal Type Associated Problems Recent Progress Patient-Stated? Author BRIAN PATHWAY SURGERY IS SCHEDULED Care Plan [facility]RIAN PATHWAY SURGERY IS SCHEDULED No Luis A Escobedo MD documented as of this encounter Visit Diagnoses Diagnosis S/P laparoscopic sleeve gastrectomy- Primary Class 3 severe obesity with serious comorbidity and body mass index (BMI) of 45.0 to 49.9 in adult, unspecified obesity type (H) Type 2 diabetes mellitus without complication, without long-term current use of insulin (H) documented in this encounter Additional Health Concerns Problem Noted Date Diagnosed Date BRIAN PATHWAY SURGERY IS SCHEDULED 10/15/2022 documented as of this encounter Care Teams Instructional Facilitator Relationship Specialty Start Date End Date Kaykay Duarte, ELECTRICAL ENGINEERING DIRECTOR [address] [place] [address] PCP - General 10/15/22 Roderick Morelos MD [address] [place], [place] [phone] Cardiovascular Disease 02/03/22 Magno Wood MD [address] [place] [address] [address] [place] [address] Otolaryngology 02/21/22 Sophie Ocasio AuD [address] [place] [address] [phone] Dental Claims Processor Audiology 02/21/22 Henny Rosales APRN AUTOMATIC DRILLING MACHINE OPERATOR [address] [place] [address] Assigned Heart and Vascular Provider 08/09/[address] [place] [address] [phone] Registered Dietitian Dietitian, Registered 09/02/22 Christiane Rodríguez MD [address] [place] [address] [address] [place], [place] [phone] Otolaryngology 11/12/22 Jing Cadena APRN NIPPING MACHINE OPERATOR [address] [place] [address] 450 [place], [place] [phone] Clinical Nurse Specialist Anesthesiology 01/15/23 Radha Lopez, [facility] [address] [place] [address] Pharmacist Pharmacist 01/16/23 Luis A Escobedo MD 420 [facility] 195 [place] [address] Assigned Surgical Provider 02/07/23 04/15/23 documented as of this encounter
--- OUTSIDE RECORDS SUMMARY | 2023-05-09 18:19 | XMS_ITS | Encounter Summary ---
Author Name Unknown Organization [facility] Address [address] [place] [address] Care Team Providers Care Fitness Manager Name Role Phone Roderick Morelos MD Unavailable [phone] Magno Wood MD Unavailable [phone] Sophie Ocasio AuD Unavailable Henny Rosales TREASURY MANAGEMENT SALES CONSULTANT OFFICE ADMINISTRATION Unavailable Sharee Negron RD Unavailable Kaykay Duarte MILLWRIGHT INSTRUCTOR Primary Care Provider Christiane Rodríguez MD Unavailable [phone] Jing Cadena TREASURY MANAGEMENT SALES CONSULTANT SECONDARY SPECIAL EDUCATION TEACHER Unavailable Radha Lopez [facility] Unavailable Geri Loza PA-C Unavailable Reason for Visit * Reason Comments RECHECK Encounter Details Date Type Department Care Team (Latest Contact Info) Description 04/23/2023 1:30 PM PRESS FEEDER Virtual Visit [facility] [address] [place] [address] Sharee Negron, RD [address] [place] [address] Nutritional counseling (Primary Dx); S/P laparoscopic sleeve gastrectomy; Type 2 diabetes mellitus without complication, without long-term current use of insulin (H); Obesity Social History Tobacco Use Types Packs/Day Years [...] on file documented as of this encounter Patient Instructions * Patient Instructions* Sharee Negron RD - 04/23/2023 1:30 PM PRESS FEEDER Goals: 1) Follow diet advancement schedule below. 2) Aim for 60+ gm protein/day. 3) Consume 48-64+ oz fluids daily- between meals 4) Eat slowly (>20 min/meal), chewing well to smooth consistency once on the bariatric soft diet. 5) Limit portions to ~1/4 to ~1/2 c per meal or less plus 1-2 protein shakes/day as needed 6) Take vitamins/minerals as recommended - [place] 2 per day - Add B12 - Add Vitamin D - Add chewable calcium citrate as needed (want 8105-0918 mg/day between diet and supplements) Post-op Diet Advancement Schedule: Regular Diet (stage 5): START May 13 Post-op Diet Handouts: Diet Guidelines after Weight-loss Surgery http://[employer] ([place])/620455.pdf Your Stage 4 Diet: Soft Foods http://[employer] ([place])/713896.pdf Your Stage 5 Diet: Regular Foods http://[employer] ([place])/404998.pdf Supplements after Sleeve Gastrectomy, Gastric Bypass or Single Anastomosis Duodenal Switch https://[employer] ([place])/959657.pdf Keeping Track of Fluids http://www.[employer] ([place])/706582.pdf Follow-Up: 06/23/22 at 1:00 pm Sharee Clement), SIVA, RD, LD Clinic #: [phone] S FEEDER documented in this encounter Progress Notes * Sharee Negron RD - 04/23/2023 1:30 PM CST Video-Visit Details Type of service: Video Visit Video Start Time: 1:27 pm Video End Time: 1:40 pm Originating Location (pt. Location): Home Distant Location (provider location): Offsite (providers home) Platform used for Video Visit: [employer] Nutrition Assessment Reason For Visit: Billie Connolly is a 52 year old female presenting today for nutrition follow-up, s/p conversion of SG to RNYGB with Dr. Escobedo 03/18/23. Patient referred by Geri Loza PA-C on August 15, 2022. Anthropometrics Pre-op Weight: 338 lbs Weight 08/15/22: 309 lbs Day of Surgery Weight(03/18/23): 288 lbs Estimated body mass index is 42.93 kg/m?? as calculated from the following: Height as of an earlier encounter on 04/23/23: 1.676 m (5' 6). Weight as of an earlier encounter on 04/23/23: 120.7 kg (266 lb). Current Weight: 266 lbs Weight loss: -43 lbs from initial consult 08/15/22; -22 lbs from day of surgery Current Vitamins/Minerals: [place] MVI with iron - Did increase to 2 per day SL B12 500 mcg daily - Will add today Vitamin D 5,000 international unit(s)/day - Will add today Will look for chewable calcium citrate Calcium: protein shakes Due for 3 month labs end of May, orders placed today Nutrition History NKFA Not huge on fish/seafood - does eat tuna 1 week post op: Pt reports consuming and tolerating bariatric clear [...] little soup 3-4x/day (maybe 1cup volume total) Apr 2023: Things going well overall. Did vomit when first started soft foods - over eating and eating too fast. No vomiting past 2 weeks. Started measuring foods - stopping at about 3 Tbsp. Working on slowing down. No dysphagia. No reflux and is not taking omeprazole. Occ cramps. Meeting protein goals. Continues with protein shakes as needed. Hydration - 40 oz, water, hot tea, milk (even lactose free) occ but does not tolerate really well. Finds even water can make her stomach cramp sometimes. Fasting BG's 100-120. BM: soft, having BM every 2-3 days PA: limited by hip pain - recently got injections, helpful. Previous goals: 1) Follow diet advancement schedule below. 2) Work towards 60 gm protein/day. 3) Consume 48-64+ oz fluids daily- between meals only once on puree diet 4) Eat slowly (>20 min/meal), chewing well to smooth consistency once on the bariatric soft diet. 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 2) Aim for 60+ gm protein/day. 3) Consume 48-64+ oz fluids daily- between meals 4) Eat slowly (>20 min/meal), chewing well to smooth consistency once on the bariatric soft diet. 5) Limit portions to ~1/4 to ~1/2 c per meal or less plus 1-2 protein shakes/day as needed 6) Take vitamins/minerals as recommended - [place] 2 per day - Add B12 - Add Vitamin D - Add chewable calcium citrate as needed (want 9528-9674 mg/day between diet and supplements) Post-op Diet Advancement Schedule: Regular Diet (stage 5): START May 13 Post-op Diet Handouts: Diet Guidelines after Weight-loss Surgery http://[employer] ([place])/957750.pdf Your Stage 4 Diet: Soft Foods http://[employer] ([place])/084899.pdf Your Stage 5 Diet: Regular Foods http://[employer] ([place])/715592.pdf Supplements after Sleeve Gastrectomy, Gastric Bypass or Single Anastomosis Duodenal Switch https://[employer] ([place])/338790.pdf Keeping Track of Fluids http://www.[employer] ([place])/717793.pdf Follow-Up: 06/23/22 at 1:00 pm Time spent with patient: 13 minutes. SIVA Peacock, RD, LD S FEEDER documented in this encounter Nursing Notes * Ángela Barton - 04/23/2023 1:30 PM CST Is the patient currently in the state of [place]? YES Visit mode:VIDEO If the visit is dropped, the patient can be reconnected by: VIDEO VISIT: Text to cell phone: Telephone Information: Will anyone else be joining the visit? NO (If patient encounters technical issues they should call [phone] :[phone]) How would you like to obtain your AVS? MyChart Are changes needed to the allergy or medication list? N/A Reason for visit: RECHECK Ángela Barton VVF S FEEDER documented in this encounter Plan of Treatment Upcoming Encounters Date Type Department Care Team (Late st Contact Info) Description 06/24/2023 12:30 PM CDT Virtual Visit [facility] [address] [phone] Geri Loza PA-C [address] [place] [address] [phone] 06/24/2023 1:00 PM CDT Virtual Visit [facility] [address] [address] Sharee Negron, RD [address] [place] [address] [phone] documented as of this encounter Goals Goal Patient Goal Type Associated Problems Recent Progress Patient-Stated? Author BRIAN PATHWAY SURGERY IS SCHEDULED Care Plan BRIAN PATHWAY SURGERY IS SCHEDULED No Luis A Escobedo MD documented as of this encounter Visit Diagnoses Diagnosis Nutritional counseling- Primary S/P laparoscopic sleeve gastrectomy Type 2 diabetes mellitus without complication, without long-term current use of insulin (H) Obesity Obesity, unspecified documented in this encounter Additional Health Concerns Problem Noted Date Diagnosed Date BRIAN PATHWAY SURGERY IS SCHEDULED 10/15/2022 documented as of this encounter Care Teams Fitness Manager Relationship Specialty [place] [address] [place] [address] PCP - General 10/15/22 Roderick Morelos MD [address] [place], [place] [phone] Cardiovascular Disease 02/03/22 Magno Wood MD [address] [place] [address] [phone] Otolaryngology 02/21/22 Sophie Ocasio AuD [address] [place] [address] Bundler Audiology 02/21/22 Henny Rosales, TREASURY MANAGEMENT SALES CONSULTANT OFFICE ADMINISTRATION [address] [place] [address] Assigned Heart and Vascular Provider 08/09/[address] [place] [address] [phone] Registered Dietitian Dietitian, Registered 09/02/22 Christiane Rodríguez MD [address] [place] [address] 396 [place], [place] 038645 Otolaryngology 11/12/22 Jing Cadena, TREASURY MANAGEMENT SALES CONSULTANT SECONDARY SPECIAL EDUCATION TEACHER [address] [place] [address] 450 [place], [place] 616085 Clinical Nurse Specialist Anesthesiology 01/15/23 Radha Lopez [facility] [address] [place] [address] [phone] Pharmacist Pharmacist 01/16/23 Geri Loza PA-C [address] [place] [address] [phone] Assigned Surgical Provider 04/16/23 documented as of this encounter
--- OUTSIDE RECORDS SUMMARY | 2023-05-09 18:19 | XMS_ITS | Encounter Summary ---
Author Name Unknown Organization [facility] Address [address] [place] [address] Care Team Providers Care Chicken And Fish Cleaner Name Role Phone Roderick Morelos MD Unavailable [phone] Magno Wood MD Unavailable [phone] Sophie Ocasio AuD Unavailable [phone]ICAL COMPUTER COURT SECURITY OFFICER Unavailable Sharee Negron RD Unavailable Kaykay Duarte RETAIL MERCHANDISER Primary Care Provider Christiane Rodríguez MD Unavailable [phone] Jing Cadena GEOPHYSICAL COMPUTER BOX OFFICE CLERK Unavailable Radha Lopez [facility] Unavailable [phone] Luis A Escobedo MD Unavailable [phone] Geri Loza PA-C Unavailable [phone] Encounter Details Date Type Department Care Team (Late st Contact Info) Description 03/25/2023 [facility] [address] 4th [place] [address] Kang Griffiths Social History Tobacco [...] Description 06/24/2023 12:30 PM CDT Virtual Visit [facility] [address] [phone] Geri Loza PA-C [address] [place] [address] [phone] 06/24/2023 1:00 PM CDT Virtual Visit [facility] [address] [address] Sharee Negron, RD [address] [place] [place] [address] [phone] documented as of this encounter Goals Goal [...] documented as of this encounter Care Teams Chicken And Fish Cleaner Relationship Specialty Start Date End Date Kaykay Duarte RETAIL MERCHANDISER [address] [place] [address] PCP - General 10/15/22 Roderick Morelos MD [address] [place] [address] Cardiovascular Disease 02/03/22 Magno Wood MD 420 [facility] 396 [place], [place] 017715 Otolaryngology 02/21/22 Sophie Ocasio AuD 9 [place], [place] 850445 Manager Of International Audiology 02/21/22 Henny Rosales, GEOPHYSICAL COMPUTER COURT SECURITY OFFICER [address] [place] [address] Assigned Heart and Vascular Provider 08/09/[address] [place] [place] [address] [phone] Registered Dietitian Dietitian, Registered 09/02/22 Christiane Rodríguez MD [address] [place] [address] 396 [place], [place] 690425 Otolaryngology 11/12/22 Jing Cadena, GEOPHYSICAL COMPUTER BOX OFFICE CLERK [address] [place] [address] 450 [place], [place] [phone] Clinical Nurse Specialist Anesthesiology 01/15/23 Radha Lopez, [facility] [address] [place] [place] [address] [phone] Pharmacist Pharmacist 01/16/23 Luis A Escobedo MD [address] [place] [address] 195 [place], [place] [phone] Assigned Surgical Provider 02/07/23 04/15/23 Geri Loza PA-C 9 [place] [address] Assigned Surgical Provider 04/16/23 documented as of this encounter
--- OUTSIDE RECORDS SUMMARY | 2023-05-09 18:19 | XMS_ITS | Encounter Summary ---
Author Name Unknown Organization [facility] Address [address] [place] [address] Care Team Providers Care Library Supervisor Name Role Phone Roderick Morelos MD Unavailable Magno Wood MD Unavailable [phone] Sophie Ocasio AuD Unavailable [phone] Henny Rosales ANIMAL SCIENTIST FIBERGLASS AUTO BODY REPAIRER Unavailable [phone] Unavailable Kaykay Duarte TITLE ONE TEACHER Primary Care Provider [phone] Christiane Rodríguez MD Unavailable [phone] Jing Cadena ANIMAL SCIENTIST LATHE MACHINE OPERATOR Unavailable Radha Lopez [facility] Unavailable [phone] Luis A Escobedo MD Unavailable [phone] Geri Loza PA-C Unavailable [phone] Encounter Details Date Type Department Care Team (Late st Contact Info) Description 04/06/2023 [facility] Medical Advice [facility] [address] 4th [place] [address] Tanya Larsen RN Social History [...] 06/24/2023 12:30 PM CDT Virtual Visit [facility] [address] [phone] Geri Loza PA-C [address] [place] [address] [phone] 06/24/2023 1:00 PM CDT Virtual Visit [facility] [address] [address] Sharee Negron, RD [address] [place] [address] [phone] documented as of this encounter Goals Goal [...] documented as of this encounter Care Teams Library Supervisor Relationship Specialty Start Date End Date Kaykay Duarte TITLE ONE TEACHER [address] [facility] [address] PCP - General 10/15/22 Roderick Morelso MD [address] [place] [address] Cardiovascular Disease 02/03/22 Magno Wood MD 420 [facility] 396 [place], [place] 836725 Otolaryngology 02/21/22 Sophie Ocasio AuD [address] [place] [address] 427865 Keller Machine Operator Audiology 02/21/22 Henny Rosales, ANIMAL SCIENTIST FIBERGLASS AUTO BODY REPAIRER [address] [place] [address] Assigned Heart and Vascular Provider 08/09/[address] [place] [address] [phone] Registered Dietitian Dietitian, Registered 09/02/22 Chrisitane Rodríguez MD [address] [place] [address] 396 [place], [place] 339925 Otolaryngology 11/12/22 Jing Cadena, ANIMAL SCIENTIST LATHE MACHINE OPERATOR 420 [facility] 450 [place], [place] 903125 Clinical Nurse Specialist Anesthesiology 01/15/23 Radha Lopez, [facility] [address] [place] [address] [phone] Pharmacist Pharmacist 01/16/23 Luis A Escobedo MD 420 [facility] 195 [place], [place] 149425 Assigned Surgical Provider 02/07/23 04/15/23 Geri Loza PA-C 9 [place] [address] Assigned Surgical Provider 04/16/23 documented as of this encounter
--- OUTSIDE RECORDS SUMMARY | 2023-05-09 18:19 | XMS_ITS | Encounter Summary ---
Author Name Unknown Organization [facility] Address [address] [place] [address] Care Team Providers Care Mine Geologist Name Role Phone Roderick Morelos MD Unavailable [phone] Magno Wood MD Unavailable [phone] Sophie Ocasio AuD Unavailable [phone] Henny Rosales SHOPFITTER COMMUNITY PHARMACIST Unavailable [phone] Unavailable Kaykay Duarte BODY SPECIALIST Primary Care Provider Christiane Rodríguez MD Unavailable [phone] Jing Cadena SHOPFITTER CAB WORKER Unavailable Radha Lopez [facility] Unavailable [phone] Luis A Escobedo MD Unavailable [phone] Geri Loza PA-C Unavailable [phone] Encounter Details Date Type Department Care Team (Late st Contact Info) Description 03/31/2023 My[facility] Medical Advice [facility] [address] 4th [place] [address] Tanya Larsen RN Social History [...] Description 06/24/2023 12:30 PM CDT Virtual Visit [facility] [address] [phone] Geri Loza PA-C [address] [place] [address] [phone] 06/24/2023 1:00 PM CDT Virtual Visit [facility] [address] [address] Sharee Negron, RD [address] [place] [address] [phone] documented as of this encounter Goals Goal [...] documented as of this encounter Care Teams Mine Geologist Relationship Specialty Start Date End Date Kaykay Duarte BODY SPECIALIST [address] [place] [address] PCP - General 10/15/22 Roderick Morelos MD [address] [place] [address] Cardiovascular Disease 02/03/22 Magno Wood MD 420 [facility] 396 [place], [place] 244785 Otolaryngology 02/21/22 Sophie Ocasio AuD [address] [place] [address] [phone] Incident Response Manager Audiology 02/21/22 Henny Rosales, SHOPFITTER COMMUNITY PHARMACIST [address] [place] [address] Assigned Heart and Vascular Provider 08/09/[address] [place] [address] [phone] Registered Dietitian Dietitian, Registered 09/02/22 Christiane Rodríguez MD [address] [place] [address] 396 [place], [place] 807985 Otolaryngology 11/12/22 Jing Cadena, SHOPFITTER CAB WORKER 420 [facility] 450 [place], [place] 319905 Clinical Nurse Specialist Anesthesiology 01/15/23 Radha Lopez, [facility] [address] [place] [address] [phone] Pharmacist Pharmacist 01/16/23 Luis A Escobedo MD 420 [facility] 195 [place], [place] 701855 Assigned Surgical Provider 02/07/23 04/15/23 Geri Loza PA-C 9 [place] [address] Assigned Surgical Provider 04/16/23 documented as of this encounter
--- OUTSIDE RECORDS SUMMARY | 2023-05-09 18:19 | XMS_ITS | Encounter Summary ---
Author Name Unknown Organization [facility] Address [address] [place] [address] Care Team Providers Care News Correspondent Name Role Phone Roderick Morelos MD Unavailable [phone] Magno Wood MD Unavailable [phone] Sophie Ocasio AuD Unavailable Henny Rosales MOLDED GOODS CONTROLS OPERATOR SAWMILL RELIEF WORKER Unavailable [phone] Unavailable Kaykay Duarte RESOLUTION AGENT Primary Care Provider [phone] Christiane Rodríguez MD Unavailable Jing Cadena MOLDED GOODS CONTROLS OPERATOR INSTRUMENTAL TEACHER Unavailable Radha Lopez [facility] Unavailable Luis A Escobedo MD Unavailable [phone] Geri Loza PA-C Unavailable [phone] Encounter Details Date Type Department Care Team (Late st Contact Info) Description 03/21/2023 [facility] Medical Advice [facility] Conception [address] [facility] [address] 4th [place] [address] Luis A Escobedo MD [address] [place] [address] [facility] 195 [place] [address] Social History Tobacco Use Types [...] Virtual Visit [facility] [address] [phone] Geri Loza PA-C [address] [place] [address] [phone] 06/24/2023 1:00 PM CDT Virtual Visit [facility] [address] [phone] Sharee Negron, RD [address] [place] [address] [phone] documented as of this encounter Goals Goal [...] documented as of this encounter Care Teams News Correspondent Relationship Specialty Start Date End Date Kaykay Duarte, RESOLUTION AGENT [address] [place] [address] PCP - General 10/15/22 Roderick Morelos MD [address] [place] [address] Cardiovascular Disease 02/03/22 Magno Wood MD [address] [place] [address] 396 [place], [place] 089825 Otolaryngology 02/21/22 Sophie Ocasio AuD [address] [place] [address] [phone] Chocolate Packer Audiology 02/21/22 Henny Rosales, MOLDED GOODS CONTROLS OPERATOR SAWMILL RELIEF WORKER [address] [place] [phone] Assigned Heart and Vascular Provider 08/09/[address] [place] [address] [phone] Registered Dietitian Dietitian, Registered 09/02/22 Christiane Rodríguez MD [address] [place] [address] [phone] Otolaryngology 11/12/22 Jing Cadena, MOLDED GOODS CONTROLS OPERATOR INSTRUMENTAL TEACHER [address] [place] [address] [phone] Clinical Nurse Specialist Anesthesiology 01/15/23 Radha Lopez, [facility] [address] [place] [address] [phone] Pharmacist Pharmacist 01/16/23 Luis A Escobedo MD [address] [place] [address] 195 [place], [place] 054505 Assigned Surgical Provider 02/07/23 04/15/23 Geri Loza PA-C [address] [place] [address] 24[address] Assigned Surgical Provider 04/16/23 documented as of this encounter
--- OUTSIDE RECORDS SUMMARY | 2023-05-09 18:19 | XMS_ITS | Encounter Summary ---
Author Name Unknown Organization [facility] Address [address] [place] [address]167 Care Team Providers Care Tufter Operator Name Role Phone Roderick Morelos MD Unavailable [phone] Magno Wood MD Unavailable [phone] Sophie Ocasio AuD Unavailable [phone] Henny Rosales CNC SERVICE ENGINEER TRAIN CREW MEMBER Unavailable [phone] Unavailable Kaykay Duarte ANIMAL HEALTH TECHNICIAN Primary Care Provider Christiane Rodríguez MD Unavailable [phone] Jing Cadena CNC SERVICE ENGINEER FISHER MUSSEL Unavailable Radha Lopez [facility] Unavailable [phone] Luis A Escobedo MD Unavailable [phone] Encounter Details Date Type Department Care Team (Latest Contact Info) Description 03/22/2023 Travel Social History Tobacco Use Types Packs/Day Years [...] Description 06/24/2023 12:30 PM CDT Virtual Visit [facility] [address] [phone] Geri Loza PA-C [address] [place] [address] [phone] 06/24/2023 1:00 PM CDT Virtual Visit [facility] Weight Management [address] [address] Sharee Negron, RD [address] [place] [address] [phone] documented as of this encounter Goals Goal [...] documented as of this encounter Care Teams Tufter Operator Relationship Specialty Start Date End Date Kaykay Duarte ANIMAL HEALTH TECHNICIAN [address] [place] [address] PCP - General 10/15/22 Roderick Morelos MD [address] [place] 264705 Cardiovascular Disease 02/03/22 Magno Wood MD [address] [facility] 396 [place] [address] Otolaryngology 02/21/22 Sophie Ocasio AuD 909 [place], [place] 105475 Layout Technician Audiology 02/21/22 Henny Rosales, CNC SERVICE ENGINEER TRAIN CREW MEMBER [address] [place] [address] Assigned Heart and Vascular Provider 08/09/[address] [place], [place] 591675 Registered Dietitian Dietitian, Registered 09/02/22 Christiane Rodríguez MD 420 [facility] 396 [place], [place] 387805 Otolaryngology 11/12/22 Jing Cadena, CNC SERVICE ENGINEER FISHER MUSSEL 420 [facility] 450 [place], [place] 301825 Clinical Nurse Specialist Anesthesiology 01/15/23 Radha Lopez, [facility] 9 [place], [place] 817945 Pharmacist Pharmacist 01/16/23 Luis A Escobedo MD 420 [facility] 195 [place], [place] 037705 Assigned Surgical Provider 02/07/23 04/15/23 documented as of this encounter
--- OUTSIDE RECORDS SUMMARY | 2023-05-09 18:20 | XMS_ITS | Encounter Summary ---
Author Name Unknown Organization [place] Address [address] [place] [id number] Care Team Providers Care Operations Support Manager Name Role Phone Roderick Morelos MD Unavailable [phone] Magno Wood MD Unavailable [phone] Sophie Ocasio AuD Unavailable [phone] Henny Rosales TRAFFIC CHIEF STEEL WORKER Unavailable [phone] Unavailable Kaykay Duarte BELL SPINNER Primary Care Provider [phone] Christiane Rodríguez MD Unavailable [phone] Jing Cadena TRAFFIC CHIEF COOK SUPERVISOR Unavailable Radha Lopez [facility] Unavailable [phone] Luis A Escobedo MD Unavailable [phone] Geri Loza PA-C Unavailable [phone] Encounter Details Date Type Department Care Team (Late st Contact Info) Description 02/17/2023 [facility] Medical Advice [facility] [address] [place] [address] Henny Arguello, RN Social History Tobacco Use Types Packs/Day Years Used Date Smoking Tobacco: Never Smokeless Tobacco: Never Alcohol Use Standard Drinks/Week Comments Yes 0 [...] Description 06/24/2023 12:30 PM CDT Virtual Visit [facility] [address] [phone] Geri Loza PA-C [address] [place] [id number] 06/24/2023 1:00 PM CDT Virtual Visit [facility] [address] [address] Sharee Negron, RD [address] [place] [phone] documented as of this encounter Goals Goal [...] documented as of this encounter Care Teams Operations Support Manager Relationship Specialty Start Date End Date Kaykay Duarte BELL SPINNER [id number] [place] [address] PCP - General 10/15/22 Roderick Morelos MD [address] [place] [address] Cardiovascular Disease 02/03/22 Magno Wood MD [address] [facility] [address] [place], [place] [phone] Otolaryngology 02/21/22 Sophie Ocasio AuD [address] [place], [place] [phone] Drilling Contractor Audiology 02/21/22 Henny Rosales, TRAFFIC CHIEF STEEL WORKER [address] [place] [address] Assigned Heart and Vascular Provider 08/09/[address] [place] [phone] Registered Dietitian Dietitian, Registered 09/02/22 Christiane Rodríguez MD [address] [facility] [address] [place], [place] [phone] Otolaryngology 11/12/22 Jing Cadena, TRAFFIC CHIEF COOK SUPERVISOR [address] [facility] [address] [place], [place] [address] Clinical Nurse Specialist Anesthesiology 01/15/23 Radha Lopez [facility] [address] [place] [phone] Pharmacist Pharmacist 01/16/23 Luis A Escobedo MD [address] [facility] [address] [place], [place] [address] Assigned Surgical Provider 02/07/23 04/15/23 Geri Loza PA-C [address] [place] [address] Assigned Surgical Provider 04/16/23 documented as of this encounter
--- OUTSIDE RECORDS SUMMARY | 2023-05-09 18:20 | XMS_ITS | Encounter Summary ---
Author Name Unknown Organization [facility] Address [address] [place] [id number] Care Team Providers Care Roofer Assistant Name Role Phone Roderick Morelos MD Unavailable [phone] Magno Wood MD Unavailable [phone] Sophie Ocasio AuD Unavailable [phone] Henny Rosales SCRAPER BURRER SOFTWARE ENGINEERING PROJECT MANAGER Unavailable [phone] Unavailable Kaykay Duarte COLD PATCHER Primary Care Provider [phone] Christiane Rodríguez MD Unavailable [phone] Jing Cadena SCRAPER BURRER MANUFACTURING WEAVER Unavailable [phone] Radha Lopez [facility] Unavailable [phone] Luis A Escobedo MD Unavailable [phone] Reason for Visit * Auth/Cert (Routine) Specialty Diagnoses / Procedures Referred By Contac t Referred To Contact Surgery Diagnoses Morbid obesity (H) Morbid obesity (H) [E66.01] Procedures ID LAPAROSCOPIC GASTRIC RESTRICTIVE PX, W/GASTRIC BYPASS/ GRETCHEN-EN-Y, < 150CM ID LAPAROSCOPIC GASTRIC RESTRICTIVE PX, W/GASTRIC BYPASS/ GRETCHEN-EN-Y/SMALL INTESTINE RECONSTRUCT ID LAP, REPAIR PARAESOPHAGEAL HERNIA, INCL FUNDOPLASTY W/O MESH ID LAP, REPAIR PARAESOPHAGEAL HERNIA, INCL FUNDOPLASTY W/ MESH laparoscopic creation, conversion, gastroplasty, sleeve gastrectomy to gretchen-en-Y gastric bypass possible HERNIORRHAPHY, HIATAL, LAPAROSCOPIC [facility] [address] [place] [address] Referral ID Status Reason Start Date Expiration Date Visits Re quested Visits Authorized [id number] 1 1 Encounter Details Date Type Department Care Team (Late st Contact Info) Description 03/18/2023 11:10 AM REFRACTORY TECHNICIAN - 03/18/2023 3:05 PM REFRACTORY TECHNICIAN Surgery [facility] [address] [place] [address] Luis A Escobedo MD [address] [place] [address] [address] [place] [address] laparoscopic conversion sleeve gastrectomy to Gretchen-en-Y gastric bypass; upper endoscopy Surgery Details Date/Time Status Location OR Service Patient Class Case Class Case Type Trauma Case? 03/18/23 11:10 AM Posted [facility]U OR [facility]U OR 02 General Surgery Admit Elective Panel 1 Procedure [facility] Anes Op Region Wound Class Comments laparoscopic conversion slee ve gastrectomy to Gretchen-en-Y gastric bypass; upper endoscopy N/A General Abdomen II-Clean Contamin ated HERNIORRHAPHY, HIATAL, LAPAROSCOPIC N/A General Abdomen I-Clean Surgeon Surgeon Role Service Panel Luis A Escobedo MD Primary General 1 Disha Guthrie MD Resident - Assisting 1 Special Needs Estimated body mass index is 47.05 kg/m?? as calculated from the following:Height as of 01/29/23: 1.676 m (5' 6).Weight as of 01/29/23: 132.2 kg (291 lb 8 oz). PAC [id number] documented in this encounter Social History Tobacco Use Types Packs/Day Years [...] Sign Reading Time Taken Comments Blood Pressure 130/83 03/18/2023 3:00 PM REFRACTORY TECHNICIAN Pulse 86 03/18/2023 3:00 PM REFRACTORY TECHNICIAN Temperature 36.4 ??C (97.6 ??F) 03/18/2023 2:30 PM CS T Respiratory Rate 18 03/18/2023 3:00 PM REFRACTORY TECHNICIAN Oxygen Saturation 95% 03/18/2023 3:00 PM REFRACTORY TECHNICIAN Inhaled Oxygen Concentration - - Weight 130.9 kg (288 lb 9.3 oz) 03/18/2023 9:25 AM REFRACTORY TECHNICIAN Height 165.1 cm (5' 5) 03/18/2023 9:25 AM REFRACTORY TECHNICIAN Body Mass Index 48.02 03/18/2023 9:25 AM REFRACTORY TECHNICIAN documented in this encounter Discharge Summaries * Luis A Escobedo MD - 03/19/2023 12:00 PM CST Images from the original note were not included. [facility] Discharge Summary Date of Admission: 03/18/2023 Date of Discharge: 03/19/2023 Admission Diagnosis: 1. GERD 2. Hypercholesterolemia 3. Hypothyroidism 4. Morbid obesity 5. MARVA 6. SVT Discharge Diagnosis: 1. Same as above 2. Hiatal hernia Consultations: Pharmacy Procedures: Laparoscopic conversion of gastric sleeve to RNY-GB and hiatal hernia repair 03/18/[address] Escobedo Brief HPI: From operative report Billie Connolly is a 52 year old female who is morbidly obese. Numerous weight loss attempts withoutsurgery have been without success. Hospital Course: The patient was admitted and underwent the above procedure. The patient tolerated the procedure well. There were no complications. The patient's diet was slowly advanced as bowel function returned. Pain was controlled with oral pain medication and the patient was able to ambulate and void without di fficulty. The patient received appropriate education post operatively. On POD #1 the patient was discharged to home. Discharge Physical Exam: BP 119/70 (BP Location: Right arm) Pulse 52 Temp 98.4 ??F (36.9 ??C) (Oral) Resp 15 Ht 1.651 m (5' 5) Wt 130.9 kg (288 lb 9.3 oz) SpO2 96% BMI 48.02 kg/m?? GEN: NAD CV: Non-cyanotic RESP: Nonlabored breathing ABD: soft, non-tender, without guarding or rebound tenderness, incisions c/d/I with primapore dressings PSYCH: cooperative Meds: Review of your medicines START taking Dose / Directions acetaminophen 325 MG tablet Commonly known as: TYLENOL Used for: Acute post-operative pain Dose: 650 mg Take 2 tablets (650 mg) by mouth every 4 hours as needed for other (For optimal non-opioid multimodal pain management to improve pain control and physical function.) Quantity: 100 tablet Refills: 0 oxyCODONE 5 MG tablet Commonly known as: ROXICODONE Used for: Acute post-operative pain Dose: 5 mg Take 1 tablet (5 mg) by mouth every 6 hours as needed Quantity: 12 tablet Refills: 0 CONTINUE these medicines which may have CHANGED, or have new prescriptions. If we are uncertain of the size of tablets/capsules you have at home, strength may be listed as something that might have changed. Dose / Directions * B-12 500 MCG Subl This may have changed: when to take this Used for: S/P laparoscopic sleeve gastrectomy Dose: [address] 1 tablet under the tongue daily Quantity: 30 tablet Refills: 11 * cyanocobalamin 1000 MCG sublingual tablet Commonly known as: VITAMIN B-12 This may have changed: Another medication with the same name was changed. Make sure you understand how and when to take each. Dose: [address] 1 tablet under the tongue every morning Refills: 0 hyoscyamine 0.125 MG tablet Commonly known as: LEVSIN This may have changed: additional instructions Used for: S/P laparoscopic sleeve gastrectomy, At high risk for postoperative complications Dose: 125 mcg Take 1 tablet (125 mcg) by mouth every 4 hours as needed for cramping Quantity: 30 tablet Refills: [address] capsule Commonly known as: PriLOSEC This may have changed: when to take this Used for: Gastroesophageal reflux disease with esophagitis, unspecified whether hemorrhage Dose: 40 mg Take 1 capsule (40 mg) by mouth 2 times daily Quantity: 180 capsule Refills: 3 * senna-docusate 8.6-50 MG tablet Commonly known as: SENOKOT-S/PERICOLACE This may have changed: additional instructions Used for: S/P laparoscopic sleeve gastrectomy, At high risk for postoperative complications Dose: 2 tablet Take 2 tablets by mouth daily as needed for constipation (While taking narcotic pain medications. Stop taking if having loose stools.) Quantity: 30 tablet Refills: 1 * senna-docusate 8.6-50 MG tablet Commonly known as: SENOKOT-S/PERICOLACE This may have changed: You were already taking a medication with the same name, and this prescription was added. Make sure you understand how and when to take each. Used for: Acute post-operative pain Dose: 2 tablet Take 2 tablets by mouth 2 times daily as needed for constipation Quantity: 30 tablet Refills: 0 * This list has 4 medication(s) that are the same as other medications prescribed for you. Read thedirections carefully, and ask your doctor or other care provider to review them with you. CONTINUE these medicines which have NOT CHANGED Dose / Directions Accu-Chek Guide test strip Generic drug: blood glucose USE 1 STRIP TO TEST THREE TIMES A DAY. Refills: 0 * albuterol (2.5 MG/3ML) 0.083% neb solution Commonly known as: PROVENTIL Used for: Asthma with acute exacerbation, unspecified asthma severity, unspecified whether persistent Dose: 2.5 mg Take 1 vial (2.5 mg) by nebulization every 4 hours as needed for shortness of breath / dyspnea or wheezing Quantity: 90 mL Refills: 1 * albuterol 108 (90 Base) MCG/ACT inhaler Commonly known as: PROAIR HFA/PROVENTIL HFA/VENTOLIN HFA Dose: 2 puff Inhale 2 puffs into the lungs every 6 hours as needed for shortness of breath / dyspnea or wheezing Quantity: 18 g Refills: 0 atorvastatin 40 MG tablet Commonly known as: LIPITOR Dose: 40 mg Take 40 mg by mouth every evening Refills: 0 gabapentin 600 MG tablet Commonly known as: NEURONTIN Dose: 600 mg Take 600 mg by mouth At Bedtime Refills: 0 levonorgestrel 52 MG (20 mcg/day) IUD Commonly known as: MIRENA Dose: 1 each 1 each by Intrauterine route Refills: 0 levothyroxine 200 MCG tablet Commonly known as: SYNTHROID/LEVOTHROID Dose: 225 mcg Take 225 mcg by mouth at bedtime Quantity: 90 tablet Refills: 0 * ondansetron 4 MG ODT tab Commonly known as: ZOFRAN ODT Used for: S/P laparoscopic sleeve gastrectomy, At high risk for postoperative complications Dose: 4 mg Take 1 tablet (4 mg) by mouth every 6 hours as needed for nausea Quantity: 15 tablet Refills: 0 * ondansetron 4 MG ODT tab Commonly known as: ZOFRAN ODT Used for: Acute post-operative pain Dose: 4 mg Take 1 tablet (4 mg) by mouth every 6 hours as needed for nausea or vomiting Quantity: 30 tablet Refills: 0 rOPINIRole 2 MG tablet Commonly known as: REQUIP Dose: 2 mg Take 2 mg by mouth 2 times daily Take in afternoon and at bedtime Refills: 0 tirzepatide 15 MG/0.5ML pen Commonly known as: MOUNJARO Dose: 15 mg Inject 15 mg Subcutaneous every 7 days Thursday Refills: 0 * This list has 4 medication(s) that are the same as other medications prescribed for you. Read thedirections carefully, and ask your doctor or other care provider to review them with you. STOP taking celecoxib 200 MG capsule Commonly known as: celeBREX Where to get your medicines These medications were sent to [facility] [place], [place] - [address] [address] acetaminophen 325 MG tablet B-12 500 MCG Subl ondansetron 4 MG ODT tab senna-docusate 8.6-50 MG tablet Some of these will need a paper prescription and others can be bought over the counter. Ask your nurse if you have questions. Bring a paper prescription for each of these medications oxyCODONE 5 MG tablet Additional instructions: After Care Future Labs/Procedures Activity Comments: Your activity upon discharge: activity as tolerated Contact Surgeon Comments: Contact your Surgeon IF: ~ Your pain is not controlled by pain medication or pain that suddenly increases; ~ You develop a fever greater than 101 and/or chills 24 hours after surgery; ~ You notice redness or bad smelling drainage at the surgery site; ~ You notice a large amount of bleeding from the surgery site that does not stop when moderate pressure is applied; ~ You are unable to pass urine within 8-10 hours after surgery; ~ You have an upset stomach or vomiting lasting more than a day; ~ You have a skin reaction to tape or dressing such as redness, itching or rash at the surgery site. Diet Comments: Follow this diet upon discharge: BARIATRIC FULL LIQUIDS Discharge diet Comments: Phase II: Full liquid diet, room temperature with one protein shake per day. Goal water intake: 40oz per day by post-operative day #4. Meet with Bariatric Dietitian in 1 week to discuss dietary changes. Discharge Instructions Comments: After Bariatric Surgery Discharge Instructions [facility] Comprehensive Weight Management Note: Ask your nurse to order your medications from the pharmacy. Be sure you have your medicationswith you when you leave. Diet on discharge: post-op diet is bariatric clear liquids and then advance to full liquid diet on post op day #1 if cleared by surgical team How much fluid should I drink? Strive for 48-64 ounces daily. Carry a water bottle with you without a straw or sports top. Drink from it often. Keep track of how much fluid you drink in a day. Remember: -Do not use straws, chew gum or suck on hard candies. They may cause painful gas. -Sip, don't slurp when you drink. -Practice small sips using a medicine cup for the first week postop. -No ice or cold drinks. This could cause gas or spasms. -No coffee, soda pop or drinks with caffeine. These may cause stomach pain. -No alcohol. It is bad for your liver and will cause stomach pain. How often should I do my deep breathing and coughing? Use your incentive spirometer (small plastic breathing device) every hour while awake after you gethome. Using the incentive spirometer helps you deep breath. Continuing to cough and deep breath will help prevent fevers and pneumonia. If you do not have a fever after one week, you can stop using the incentive spirometer and discard it. You can continue to take deep breaths without the incentive spirometer every one to two hours whileawake for the month after surgery. What kinds of activity can I do? Get plenty of rest the first few days after surgery and try to balance rest and activity. You will need some time to recover - you may be more tired than you realize at first. You'll feel better and heal faster if you take good care of yourself. For 4 weeks after surgery (Please review restrictions at your one week visit, they could change based on how well you are doing): -Don't lift more than 20 pounds. -Take 4-5 short walks every day. -Don't jog, run, or do belly exercises. Don't swim, bathe or use a hot tub until your cuts are healed (scabs are gone). You may shower Don't plan to fly or take a road trip within the first 1 to 3 months after surgery. You could get ablood clot in your legs. If you must travel, get up and move around every hour for at least 5 minutes before continuing on your journey. Your care team can help you decide when it's safe for you to travel. What can I do for pain control? You had major belly surgery that involves all layers of your belly muscles. Pain is expected, even for some as far out as 6-8 weeks after surgery. Moving, sneezing, coughing, and breathing will causediscomfort because these activities use your belly muscles. Please see your after visit summary medication review for what pain medication will be continued, discontinued and newly started for you. You can take opioid pain medicine if prescribed and if needed. Try to wean off from it as soon as you feel comfortable. Do not drive while you are taking opioid pain medicine. This is dangerous. You can take acetaminophen (Tylenol) between your prescribed pain medicine on a scheduled basis OR take it scheduled every 6 hours (check with your care team for specifics). -Acetaminophen formulation options: -Liquid -Caplet (Cut caplet in half before taking) -Do not take more than 3000 mg Tylenol in a 24 hour period. -You may also take Tylenol for pain in place of the opioid pain medicine (check with your care teamfor specifics). You can apply ice or heat to the affected area(s). Just remember to wrap the ice in something and limit icing sessions to 20 minutes. Excessive icing can irritate the skin or cause skin damage. You can apply heat with a hot, wet towel or heating pad. Just like cold therapy, limit heat application to 20 minutes. Never sleep with a heating pad on. It could cause severe schmitt to your skin. Wear your binder to support your belly muscles if you have one. Take this off a little more each day and try to be off completely by 2 weeks after surgery. If you don't need your binder for comfort or support, you don't need to wear it. You may not be able to sleep in a comfortable position for a few weeks after surgery. This is normal. You may be more comfortable sleeping in a recliner or propped up with 3 pillows for the first couple of weeks after surgery. Do not take NSAID's (Non-Steroidal Anti-Inflammatory Drugs) (examples: ibuprofen, Motrin, Advil, Aleve, and Naproxen), aspirin, or use pain patches with NSAID's. They will increase your risk of bleeding or getting an ulcer. Please call the clinic for any of the following pain concerns, we would like to talk to you: -pain that does not improve with rest -pain that gets worse and worse -pain that is not controlled by your pain medicine -a sudden severe increase in pain What medications will I need to take after surgery? You may be discharged with the following types of medications: omeprazole 20 mg once daily for heartburn symptom prevention, zofran as needed for nausea and a medication called hyoscyamine (levsin) as needed for cramping.Please see your after visit summary medication review for what will be continued, discontinued and newly started. It is important to reduce the amount of acid in your new stomach for a couple of months after surgery while it is still healing. We will prescribe an acid computer clerk or antacid. Take it as directed. This will help prevent ulcers, heartburn and acid reflux. If you took an acid computer clerk before you had surgery, your care team will let you know what acid computer clerk you will take after surgery. It is okay to swallow any medications smaller than ?? inch in size. -If it is larger than ?? inch, it may need to be cut, crushed, or in a liquid form. Check with yourcare team about which way is most appropriate for you and your medications. What should I know about my incisions (cuts)? Your incisions are covered with white steri strips or butterfly tape and have band aids or gauze over the top. If you have gauze or band aids, they can come off in the hospital. Leave your steri strips on until they fall off on their own. If the steri strips don't fall off after 1 to 2 weeks, you can take them off. If they fall off earlier, replace them with clean band aids trying to avoid touching the incision itself. If you have gauze covered by a clear dressing, remove 2-3 days after surgery or as directed by yourcare team. You may shower in the hospital after surgery and can get your incision coverings wet. Do not submerge in water (e.g. No baths, swimming pools, hot tubs) until your care team tells you it is okay and your incisions are completely healed. Call the clinic if you have any of these signs or symptoms of infection: -Redness around the site. -Drainage that smells bad. -Drainage that is thick yellow or green. -An increase in pain around the incision site -An increase in swelling around the incision site -Heat or warmth around incision site -Fever of 101.5?? F (38.3?? C) or higher when taken under the tongue. -Chills Will my urine or bowel movements change? Your first bowel movements (stools) will likely be liquid. You may also notice old blood or a darker color (black or maroon color) in your bowel movements. This is not unusual and usually goes away after the first week, if not sooner. You may not have a bowel movement for a week. If you have not had a bowel movement for at least three days after your surgery date and are passing gas, you can use over the counter stool softeners. Please stop taking the stool softeners and laxatives if your stools are loose. Increasing fluids and activity as well as getting off narcotics will help prevent constipation. Call the clinic if: -You have stomach pain. -You continue to have constipation. -You have excessive bloating after walking and passing gas. How can I prevent dehydration if I feel nauseated (sick to my stomach) and vomit (throw up)? Vomiting is not normal after surgery. If you continue to have nausea and vomiting, call the clinic. Nausea can be a sign of dehydration. That is why it is very important to track your fluids. Do not nap more than one hour during the day. Set a timer to wake yourself up, if needed. Too much sleep will keep you from drinking enough fluid during the day and lead to dehydration. No outside activity in hot, humid weather until you can drink 48 to 64 ounces of fluid in 24 hours.If you sweat a lot, your body may lose too much water. Try to take a 1 ounce sip of water (one medicine cup) every 15 minutes. Set a timer to remind yourself. Call the clinic if you have any of these signs or symptoms of dehydration: -Dark colored urine -Urinating (pass water) less than 2-3 times per day -Lack of energy -Nausea -Dizziness -Headache Call the clinic ANY TIME at [phone] if: -Your pain medicine is not working. -You have a fever = 101.5 F. -You have belly or left shoulder pain that gets worse and worse. -You have a swollen leg with redness, warmth, or pain behind the knee or calf. -You have chest pain -You feel very short of breath. -You have a sudden severe increase in heart rate. -You have vomiting that gets worse and worse. -You have constant nausea (feeling sick to your stomach) that does not go away with medication. -You have trouble swallowing. -You have an increasing feeling that something is not right. -You have hiccups that do not stop. -You have any questions or concerns. AFTER HOURS QUESTIONS OR CONCERNS: Call [phone] and ask to speak with surgery resident if you are having troubles in the evenings, at night, or on weekends. Please call if you experience increasing abdominal pain, nausea, vomiting, increasing drainage from your wounds, chills, or fever >101.5 If you have to go to the Emergency Room, we prefer you go to the hospital that did your surgery. Please let them know that you had bariatric surgery and to notify your surgeon. When should I go back to the clinic? Follow up with your care team in 1-2 weeks. If this appointment was not already made, please call: [phone] Appointments located at [facility] clinic: [facility] ([facility]) [address] [facility] [address] [place] [address] Comments: Do NOT drive until after you have been completely off narcotics for a minimum of 24 hours. Follow-up Care - Bariatric Surgeon Comments: Follow-up with your bariatric surgeon in 2 weeks. Call your surgeon's office with any questions or concerns. Follow-up Care - Closed Circuit Screen Watcher Comments: Follow-up with your bariatric dietitian in 1 week. Return to Work Comments: May return to work in 2 weeks if cleared by Bariatric surgeon. Shower/Bathing Comments: Okay to shower. Do NOT soak in tub for 2-4 weeks. Surgical Site Care Comments: If you have skin tapes on your surgical site(s), leave them on the surgical site(s) until they falloff on their own or 1 week after surgery date. May remove Band-Aid one day after surgery. Wash your hands Comments: Wash your hands with soap and warm water before you touch the site of surgery. Weight Restrictions Comments: Do not lift over 20 pounds for 2 weeks. Follow Up: -Follow up with bariatric clinic 1-2 week(s) after discharge. BARIATRIC PATIENTS: Call [phone] to schedule or to reach your care team GENERAL SURGERY PATIENTS: Call [phone] for scheduling needs or to reach your care team ACTORY TECHNICIAN documented in this encounter Medications at Time of Discharge Medication Sig Dispensed Refills Start Date End Date acetaminophen (TYLENOL) 325 MG tabletIndications:Mor bid obesity (H),Acute post-operative pain Take 2 tablets (650 mg) by mouth every 4 hours as needed for other (For optimal non-opioid multimodal pain management to improve pain control and physical function.) 100 tablet 0 03/19/2023 albuterol (PROAIR HFA/PROVENTIL HFA/VENTOLIN HFA) 108 (90 Base) MCG/ACT inhaler Inhale 2 puffs into the lungs every 6 hours as needed for shortness of breath / dyspnea or wheezing 18 g 0 10/29/2021 albuterol (PROVENTIL) (2.5 MG/3ML) 0.083% neb solutionIndications:A sthma with acute exacerbation, unspecified asthma severity, unspecified whether persistent Take 1 vial (2.5 mg) by nebulization every 4 hours as needed for shortness of breath / dyspnea or wheezing 90 mL 1 06/19/2021 atorvastatin (LIPITOR) 40 MG tablet Take 40 mg by mouth every evening 0 11/27/2022 11/27/2023 blood glucose (ACCU-CHEK GUIDE) test strip USE 1 STRIP TO TEST THREE TIMES A DAY. 0 04/11/2022 cyanocobalamin (VITAMIN B-12) [address] 1 tablet under the tongue every morning 0 gabapentin (NEURONTIN) 600 MG tablet Take 600 mg by mouth At Bedtime 0 levonorgestrel (MIRENA) 52 MG (20 mcg/day) IUD 1 each by Intrauterine route 0 levothyroxine (SYNTHROID/LEVOTHROID ) 200 MCG tablet Take 225 mcg by mouth at bedtime 90 tablet 0 omeprazole (PRILOSEC) [address] capsuleIndications:Ga stroesophageal reflux disease with esophagitis, unspecified whether hemorrhage Take 1 capsule (40 mg) by mouth 2 times daily 180 capsule 3 01/26/2023 rOPINIRole (REQUIP) 2 MG tablet Take 2 mg by mouth 2 times daily Take in afternoon and at bedtime 0 Cyanocobalamin (B-12) 500 MCG SUBLIndications:S/P laparoscopic sleeve gastrectomy Place 1 tablet under the tongue daily 30 tablet 11 03/19/2023 04/23/2023 hyoscyamine (LEVSIN) 0.125 MG tabletIndications:S/P laparoscopic sleeve gastrectomy,At high risk for postoperative complications Take 1 tablet (125 mcg) by mouth every 4 hours as needed for cramping 30 tablet 1 02/17/2023 04/23/2023 ondansetron (ZOFRAN ODT) 4 MG ODT tabIndications:Morbid obesity (H),Acute post-operative pain Take 1 tablet (4 mg) by mouth every 6 hours as needed for nausea or vomiting 30 tablet 0 03/19/2023 04/23/2023 ondansetron (ZOFRAN ODT) 4 MG ODT tabIndications:S/P laparoscopic sleeve gastrectomy,At high risk for postoperative complications Take 1 tablet (4 mg) by mouth every 6 hours as needed for nausea 15 tablet 0 02/17/2023 04/23/2023 oxyCODONE (ROXICODONE) 5 MG tabletIndications:Acu te post-operative pain Take 1 tablet (5 mg) by mouth every 6 hours as needed 12 tablet 0 03/19/2023 04/23/2023 senna-docusate (SENOKOT-S/PERICOLACE ) 8.6-50 MG tabletIndications:Mor bid obesity (H),Acute post-operative pain Take 2 tablets by mouth 2 times daily as needed for constipation 30 tablet 0 03/19/2023 04/23/2023 senna-docusate (SENOKOT-S/PERICOLACE ) 8.6-50 MG tabletIndications:S/P laparoscopic sleeve gastrectomy,At high risk for postoperative complications Take 2 tablets by mouth daily as needed for constipation (While taking narcotic pain medications. Stop taking if having loose stools.) 30 tablet 1 02/17/2023 04/23/2023 tirzepatide (MOUNJARO) 15 MG/0.5ML pen Inject 15 mg Subcutaneous every 7 days Thursday 0 04/23/2023 documented as of this encounter Progress Notes * Ibis Key RN - 03/19/2023 1:15 PM CST NH NS DISCHARGE NOTE Patient discharged to home at 1:15 PM via wheel chair. Accompanied by partner and staff. Discharge instructions reviewed with patient and spouse, opportunity offered to ask questions. Prescriptions sent with patient to fill. All belongings sent with patient. Sharif removed from port sites. Ibis Key RN ACTORY TECHNICIAN * Disha Guthrie MD - 03/19/2023 7:37 AM CST Surgery Note 03/19/23 Mid abdominal pain requiring IV medications. Has ambulated. Voiding without difficulty. Tolerating clear liquids. Feels hungry. Vitals reviewed, HR 70s GEN: NAD CV: Non-cyanotic RESP: Nonlabored breathing ABD: soft, non-tender, without guarding or rebound tenderness, incisions c/d/I with primapore dressings PSYCH: cooperative Labs reviewed PLT pending No new imaging AP: 52 year old F status post laparoscopic conversion of gastric sleeve to RNY- GB and hiatal herniarepair 03/18/[address] Fanny Alves clears PO pain meds with IV for breakthrough, attempt to wean prior to discharge Omeprazole Levsin Lovenox Ambulate Dispo: Home later today vs tomorrow oDri Guthrie Surgery Resident [id number] ACTORY TECHNICIAN documented in this encounter Miscellaneous Notes * Plan of Care - Brandan Hernandez RN - 03/19/2023 6:34 AM CST BP 123/47 (BP Location: Right arm) Pulse 70 Temp 98.6 ??F (37 ??C) (Oral) Resp 18 Ht 1.651 m (5' 5) Wt 130.9 kg (288 lb 9.3 oz) SpO2 97% BMI 48.02 kg/m?? VSS, pain 6-7/10 in abdomen, alternated between 0.2 mg IV dilaudid and 10 mg oxycodone, denied nausea, walked in hallways, voided adequately, 6 lap sites cdi, abdominal binder in place, 2 L oxygen via nasal canula while asleep, continue with plan of care ACTORY TECHNICIAN * Plan of Care - Melody Barksdale RN - 03/18/2023 8:13 PM CST Goal Outcome Evaluation: The patient walked from PACu stretcher to bed. She complained of abdominal cramping and restless legs. After some vitals were taken and inspection of 6 lap sites. Lap sites were dry and intack. The patient ambulated in halls around nurses station which she tolerated well. The patient was given reqip. She has tolerated 30cc and ice chips then was given some gelaten. Md was called asking for Levacin for cramping and wanted to hold off & encourage patient to walk more. She was given po oxy to try and help pain. ACTORY TECHNICIAN * Pharmacy-Consult Note - FABRICIO SUNSHINE - 03/18/2023 7:59 PM CST Bariatric Consult Medications evaluated as requested per Bariatric Consult. Patient may swallow tablets/capsules ONLYif less than ?? inch. Larger tablets/capsules should be broken, crushed or split. The following changes have been made based on the Bariatric Medication Management Policy. Added administration instructions to omeprazole, Open capsule and mix intact pellets with 1 teaspoon clear liquid (ex. Jell-O or applesauce). The pharmacist will continue to follow as new medications are ordered. ACTORY TECHNICIAN * Pharmacy-Admission Medication History - Christina Lucas, [facility] - 03/18/2023 7:33 PM CST Pharmacist Admission Medication History Admission medication history is complete. The information provided in this note is only as accurateas the sources available at the time of the update. Information Source(s): Patient via phone interview Pertinent Information: - Patient has not started taking ondansetron, senna/docusate or hyoscyamine. - Patient states she will no longer be taking celecoxib. - Patient confirmed her last dose of Mounjaro was 03/13 and she does not have any home supply left. Changes made to NUMERICAL CONTROL OPERATOR medication list: Added: None Deleted: None Changed: Omeprazole was changed from BID to QPM, per patient report. Allergies reviewed with patient and updates made in EHR: yes Medication History Completed By: Christina Lucas, PharmD NUMERICAL CONTROL OPERATOR Med List Medication Sig Last Dose albuterol (PROAIR HFA/PROVENTIL HFA/VENTOLIN HFA) 108 (90 Base) MCG/ACT inhaler Inhale 2 puffs intothe lungs every 6 hours as needed for shortness of breath / dyspnea or wheezing (Patient taking differently: Inhale 2 puffs into the lungs as needed for shortness of breath or wheezing) More than a month at unknown albuterol (PROVENTIL) (2.5 MG/3ML) 0.083% neb solution Take 1 vial (2.5 mg) by nebulization every 4hours as needed for shortness of breath / dyspnea or wheezing (Patient taking differently: Take 2.5mg by nebulization as needed for shortness of breath or wheezing) More than a month at unknown atorvastatin (LIPITOR) 40 MG tablet Take 40 mg by mouth every evening Past Week at unknown blood glucose (ACCU-CHEK GUIDE) test strip USE 1 STRIP TO TEST THREE TIMES A DAY. Unknown celecoxib (CELEBREX) 200 MG capsule Take 200 mg by mouth 2 times daily as needed Past Week at unknown cyanocobalamin (VITAMIN B-12) [address] 1 tablet under the tongue every morning Past Month at unknown hyoscyamine (LEVSIN) 0.125 MG tablet Take 1 tablet (125 mcg) by mouth every 4 hours as needed for cramping (Patient taking differently: Take 0.125 mg by mouth every 4 hours as needed for cramping Post-op) Not started at n/a levonorgestrel (MIRENA) 52 MG (20 mcg/day) IUD 1 each by Intrauterine route current at n/a levothyroxine (SYNTHROID/LEVOTHROID) 200 MCG tablet Take 225 mcg by mouth at bedtime 03/16/2023 at HS ondansetron (ZOFRAN ODT) 4 MG ODT tab Take 1 tablet (4 mg) by mouth every 6 hours as needed for nausea (Patient taking differently: Take 4 mg by mouth every 6 hours as needed for nausea Post - op) not started at n/a rOPINIRole (REQUIP) 2 MG tablet Take 2 mg by mouth 2 times daily Take in afternoon and at bedtime 03/17/2023 at HS senna-docusate (SENOKOT-S/PERICOLACE) 8.6-50 MG tablet Take 2 tablets by mouth daily as needed for constipation (While taking narcotic pain medications. Stop taking if having loose stools.) (Patient taking differently: Take 2 tablets by mouth daily as needed for constipation (While taking narcotic pain medications. Stop taking if having loose stools.) Post - op) not started at n/a ACTORY TECHNICIAN * Brief Op Note - Disha Guthrie MD - 03/18/2023 2:21 PM REFRACTORY TECHNICIAN [facility] Brief Operative Note Pre-operative diagnosis: Morbid obesity (H) [E66.01] Post-operative diagnosis Same as pre-operative diagnosis + Hiatal hernia Procedure: laparoscopic conversion sleeve gastrectomy to Gretchen-en-Y gastric bypass; upper endoscopy,N/A - Abdomen HERNIORRHAPHY, HIATAL, LAPAROSCOPIC, N/A - Abdomen Surgeon: Surgeon(s) and Role: * Luis A Escobedo MD - Primary * Disha Guthrie MD - Resident - Assisting Anesthesia: General Estimated Blood Loss: Minimal Drains: None Specimens: * No specimens in log * Findings: Medium sized hiatal hernia . See operative report for details. Complications: None. Implants: * No implants in log * Dori Guthrie Surgery Resident [id number] ACTORY TECHNICIAN * Op Note - Luis A Escobedo MD - 03/18/2023 12:21 PM CST [facility] Operative Note Pre-operative diagnosis: Morbid obesity (H) [E66.01] Post-operative diagnosis * No post-op diagnosis entered * Procedure: Procedure(s): laparoscopic conversion sleeve gastrectomy to Gretchen-en-Y gastric bypass; upper endoscopy HERNIORRHAPHY, HIATAL, LAPAROSCOPIC Surgeon: Surgeon(s) and Role: * Luis A Escobedo MD - Primary * Disha Guthrie MD - Resident - Assisting Anesthesia: General Estimated blood loss: Less than 50 ml Drains: None Specimens: * No specimens in log * Findings: None. Complications: None. Implants: None. 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 Numerous weight loss attempts withoutsurgery have been without success. Height: 165.1 cm (5' 5), Weight: 130.9 kg (288 lb 9.3 oz), and currently the Body mass index is 48.02 kg/m??.. After understanding the risks and benefits of proceeding with a Laparoscopic Gretchen-en-Y Gastric Bypass, she agreed to an operation as outlined by me. I reviewed the risks of surgery with Billie Connolly. These include, but are not limited to, , myocardial infarction, pneumonia, urinary tract infection, deep venous thrombosis with or without pulmonary embolus, abdominal infection from bowel injury or abscess, bowel obstruction, wound infection, and bleeding. More specific risks related to gastric bypass were detailed at the bariatric informational seminar and include the followin.) leak at the gastrojejunostomy or jejunojejunostomy anastomosis, 2.) leak at the gastric remnant staple line, 3.) stricture at the gastrojejunostomy or jejunojejunostomy anastomosis, 4.) nausea, vomiting, and dehydration for several months, 5.) internal hernia or adhesions causing bowel obstruction, 6.) rapid weight loss causing a higher rate of gallstone formation during the first 6 months after surgery, 7.) difficulty accessing the lower stomach and duodenum for the rest of life, 8) decreased absorption of vitamins because of the altered gastric bypass anatomy, 9.) increased risk of peptic ulcer (marginal ulcer), especially for smokers and NSAID users, 10.) risk of low sugars caused by high insulin release especially in patients who do not have diabetes. Due to the patient's comorbidity conditions of GERD, hypercholesterolemia, class III obesity, and MARVA, in association with elevated body mass index, bariatric surgery has been recommended and is being performed today. Moreover, as the surgeon performing this procedure, I certify that the following are true in regards to this patient at or prior to the day of surgery: 1. The patient's body mass index (BMI) is or has been greater than or equal to 35 kg/m2. 2. The patient has at least one co-morbidity related to obesity (as outlined above). 3. The patient has been previously unsuccessful with medical treatment for obesity. Please note that some of this information has been documented as part of a comprehensive pre-bariatric surgery process in the outpatient clinic and is NOT immediately available in the inpatient encounter for this bariatric operation. OPERATIVE PROCEDURE: The patient was prepared in routine fashion and under the benefits of general anesthesia, a left upper quadrant Veress needle was inserted and the abdomen was insufflated with carbon dioxide to a maximum pressure of 15 mm Hg. With the patient in reverse Trendelenberg, a total of 6 ports were placed. A right-sided 5 mm port was used to place a liver retractor and this provideda view of the upper stomach. Prior sleeve gastrectomy anatomy noted; a few adhesions between gastrocolic fat and the sleeve; this was lysed; overall the stomach looked healthy as did the liver. Medium-sized hiatal hernia noted. The angle of His was incised with scissors the left Rey from the gastric cardia and fundus. The hepatogastric ligament was divided using the Harmonic scalpel. [The right rey was identified. Dissection was performed along the rey at the junction of the right and left crura. The crura were completely dissected and the mediastinal fat was identified and a posterior hiatal hernia repair was performed by crural approximation with 2-0 surgidac in figure of eight fashion. A 60mm white load and then a blue load and white again were used to transect the stomach ~5cm distal to GE junction and this created a small gastric pouch. With the patient moved to supine position, the ligament of Treitz was then identified, the jejunum was marched 40 cm distally, and a Reubens drain was looped around the bowel at this location. The patient was moved back to reverse Trendelenberg position, and the loop of jejunum was brought up to the gastric pouch in antecolic, antegastric position. A running suture using 2-0 polysorb on the Endostitch was used to create the back wall of the gastrojejunostomy. Enterotomies were made on both the gastric pouch and the Gretchen limb of jejunum. A roticulating 60 mm endo ART white load was then fired on the proximal side of the gastrojejunostomy to separate Gretchen limb from distal biliopancreatic limb. The Reubens drain was passed off the operative field, and the mesenteric defect was elongated using traction. The gastrojejunostomy was completed as follows. A 40 Fr Ayoeo2N tube was passed transorally into the Gretchen limb, and the enterotomy was oversewn in 2 layers using 3-0 polysorb for the internal layer starting posteriorly as a running stitch and transitioning anteriorly to Russ and 2-0 polysorb suture as a buttressing anterior layer. The Fbkyo1P tube was replaced with gastroscope and a bowel clamp was then placed on Gretchen limb, the patient was moved to supine position, the anastomosis was insufflated under saline, and there was no evidence of bubbling or leaking. Saline was aspirated. Attention was then turned towards construction of the jejunojejunostomy. The Gretchen limb was marched down 75 cm from gastrojejunostomy, and the Gretchen and biliopancreatic limbs were tacked together using2-0 Surgidac. Enterotomies were made on each limb, orientation of the Gretchen limb was re-checked at this point, and an Endo ART white load was inserted to 60 mm and fired to create the jejunojejunostomy. The heel of the jejunojejunostomy was secured, and the enterotomy defect was closed using a single white load Endo ART firing. The anti-obstruction and mesenteric defect stitches were placed in running fashion using 2-0 Surgidac. Next, the Plummer defect was visualized and closed in running fashion using 2-0 Surgidac. A transabdominal properitoneal anesthetic block was performed using 30 ml 0.25% bupivicaine dilutedwith 90 ml saline (120 mL total); this was injected using 22gauge spinal needle into the properitoneal planes around the ports and laterally along the anterior axillary line under direct optical guidance. Some of the mixture was used to inject local anesthetic at the skin of each incision as well. The liver retractor was removed, and ports were removed from the abdomen. The skin was closed usingstaples and sterile dressings were applied. All sponge and needle counts were correct x2 at the end of the case and the patient tolerated the procedure well. I was present for all critical components of this case. Luis A Escobedo MD Surgery [phone] (hospital video operator) [phone] (clinic nurses) ACTORY TECHNICIAN documented in this encounter Plan of Treatment Upcoming Encounters Date Type Department Care Team (Late st Contact Info) Description 06/24/2023 12:30 PM CDT Virtual Visit [facility] [address] [phone] Geri Loza PA-C [address] [place] [phone] 06/24/2023 1:00 PM CDT Virtual Visit [facility] [address] [phone] Sharee Negron, ÁNGEL [address] [place] [phone] Scheduled Orders Name Type Priority Associated Diagnoses Orde r Schedule POCT Glucose AC and HS Point of Care Testing Routine Morbid obesity (H) Acute post-operative pain Ordered: 03/19/2023 documented as of this encounter Goals Goal Patient Goal Type Associated Problems Recent Progress Patient-Stated? Author [facility] SURGERY IS SCHEDULED Care Plan [facility] PATHWAY SURGERY IS SCHEDULED No Luis A Escobedo MD documented as of this encounter Procedures Procedure Name Priority Date/Time Associated Diagnosis Comments GLUCOSE BY METER Routine 03/19/2023 12:0 5 PM REFRACTORY TECHNICIAN PLATELET COUNT STAT 03/19/2023 7:37 AM REFRACTORY TECHNICIAN GLUCOSE BY METER Routine 03/19/2023 7:24 AM REFRACTORY TECHNICIAN GLUCOSE BY METER Routine 03/19/2023 2:52 AM REFRACTORY TECHNICIAN GLUCOSE BY METER Routine 03/18/2023 10:2 7 PM REFRACTORY TECHNICIAN GLUCOSE BY METER Routine 03/18/2023 7:32 PM REFRACTORY TECHNICIAN CREATININE Routine 03/18/2023 6:21 PM REFRACTORY TECHNICIAN GLUCOSE BY METER Routine 03/18/2023 4:46 PM REFRACTORY TECHNICIAN GLUCOSE BY METER Routine 03/18/2023 2:42 PM REFRACTORY TECHNICIAN HERNIORRHAPHY, HIATAL, LAPAROSCOPIC 03/18/2023 11:51 AM REFRACTORY TECHNICIAN Morbid obesity (H) Special Needs Estimated body mass index is 47.05 kg/m?? as calculated from the following:Height as of 01/29/23: 1.676 m (5' 6).Weight as of 01/29/23: 132.2 kg (291 lb 8 oz). PAC [id number] CREATION, GASTRIC BYPASS, LAPAROSCOPIC 03/18/2023 11:51 AM REFRACTORY TECHNICIAN Morbid obesity (H) Special Needs Estimated body mass index is 47.05 kg/m?? as calculated from the following:Height as of 01/29/23: 1.676 m (5' 6).Weight as of 01/29/23: 132.2 kg (291 lb 8 oz). PAC [id number] TYPE AND SCREEN, ADULT STAT 03/18/2023 10:38 AM REFRACTORY TECHNICIAN ABO/RH TYPE AND SCREEN STAT 03/18/2023 10:38 AM REFRACTORY TECHNICIAN GLUCOSE BY METER Routine 03/18/2023 9:22 AM REFRACTORY TECHNICIAN documented in this encounter Results * Glucose by meter (03/19/2023 12:05 PM REFRACTORY TECHNICIAN) GLUCOSE BY METER POCT 91 70 - 99 mg/dL 03/19/2023 12:12 PM REFRACTORY TECHNICIAN [facility] Blood, Capillary BLOOD SPECIMEN / Unknown 03/19/2023 12:05 PM REFRACTORY TECHNICIAN 03/19/2023 12:12 PM REFRACTORY TECHNICIAN Luis A Escobedo MD LAB - BEAKER POCT [facility] [place] [facility] [address] [facility], [address] [place] [address], [facility] [phone] * Platelet count (03/19/2023 7:37 AM REFRACTORY TECHNICIAN) Platelet Count 237 150 - 450 10e3/uL 03/19/2023 7:54 AM REFRACTORY TECHNICIAN [facility] Blood STRUCTURE OF LEFT UPPER LIMB / Unknown Venipuncture / Unknown 03/19/2023 7:37 AM REFRACTORY TECHNICIAN 03/19/2023 7:47 AM REFRACTORY TECHNICIAN Luis A Escobedo MD LAB - BLOOD ORDER HUGH [facility] [place] [facility] [address] [facility], [address] [place] [address], [facility] [phone] * (ABNORMAL) Glucose by meter (03/19/2023 7:24 AM REFRACTORY TECHNICIAN) GLUCOSE BY METER POCT 120(H) 70 - 99 mg/dL 03/19/2023 7:32 AM REFRACTORY TECHNICIAN [facility] Blood, Capillary BLOOD SPECIMEN / Unknown 03/19/2023 7:24 AM REFRACTORY TECHNICIAN 03/19/2023 7:32 AM REFRACTORY TECHNICIAN Luis A LAWTON POCT [facility] [place] [facility] [address] [facility], [address] [place] [phone], [place] [phone] * (ABNORMAL) Glucose by meter (03/19/2023 2:52 AM REFRACTORY TECHNICIAN) GLUCOSE BY METER POCT 124(H) 70 - 99 mg/dL 03/19/2023 3:16 AM REFRACTORY TECHNICIAN [facility] Blood, Capillary BLOOD SPECIMEN / Unknown 03/19/2023 2:52 AM REFRACTORY TECHNICIAN 03/19/2023 3:16 AM REFRACTORY TECHNICIAN Luis A FISH - JERED POCT [facility] [address] [facility], [address] [place] [phone], [place] [phone] * (ABNORMAL) Glucose by meter (03/18/2023 10:27 PM REFRACTORY TECHNICIAN) GLUCOSE BY METER POCT 143(H) 70 - 99 mg/dL 03/18/2023 10:33 PM REFRACTORY TECHNICIAN [facility] Blood, Capillary BLOOD SPECIMEN / Unknown 03/18/2023 10:27 PM REFRACTORY TECHNICIAN 03/18/2023 10:33 PM REFRACTORY TECHNICIAN Luis A FISH - JERED POCT [facility] [place] [facility] [address] [facility], [address] [place] [phone], [place] [phone] * (ABNORMAL) Glucose by meter (03/18/2023 7:32 PM REFRACTORY TECHNICIAN) GLUCOSE BY METER POCT 145(H) 70 - 99 mg/dL 03/18/2023 7:39 PM REFRACTORY TECHNICIAN [facility] Blood, Capillary BLOOD SPECIMEN / Unknown 03/18/2023 7:32 PM REFRACTORY TECHNICIAN 03/18/2023 7:39 PM REFRACTORY TECHNICIAN Luis A Escobedo MD LAB - BEAKER POCT Performing Organization Address City/[facility]/ZIP Co de Phone Number [facility] [place] [facility] [address] [facility], [address] [place] [address], [facility] [phone] * Creatinine (03/18/2023 6:21 PM REFRACTORY TECHNICIAN) Creatinine 0.76 0.51 - 0.95 mg/dL 03/18/2023 7:05 PM REFRACTORY TECHNICIAN [facility] GFR Estimate >90 >60 mL/min/1.73 m2 03/18/2023 7:05 PM REFRACTORY TECHNICIAN [facility] Blood STRUCTURE OF LEFT HAND / Unknown Venipuncture / Unknown 03/18/2023 6:21 PM REFRACTORY TECHNICIAN 03/18/2023 6:32 PM REFRACTORY TECHNICIAN Disha Guthrie MD LAB - BLOOD O RDERABLES Performing Organization Address City/[facility]/ZIP Co de Phone Number [facility] [place] [facility] [address] [facility], [address] [place] [address], [facility] [phone] * (ABNORMAL) Glucose by meter (03/18/2023 4:46 PM REFRACTORY TECHNICIAN) GLUCOSE BY METER POCT 137(H) 70 - 99 mg/dL 03/18/2023 4:53 PM REFRACTORY TECHNICIAN [facility] Blood, Capillary BLOOD SPECIMEN / Unknown 03/18/2023 4:46 PM REFRACTORY TECHNICIAN 03/18/2023 4:53 PM REFRACTORY TECHNICIAN Luis A FISH - JERED POCT Performing Organization Address City/[facility]/ZIP Co de Phone Number [facility] [place] [facility] [address] [facility], [address] [place] [phone], [facility] [phone] * (ABNORMAL) Glucose by meter (03/18/2023 2:42 PM REFRACTORY TECHNICIAN) GLUCOSE BY METER POCT 186(H) 70 - 99 mg/dL 03/18/2023 2:48 PM REFRACTORY TECHNICIAN [facility] Blood, Capillary BLOOD SPECIMEN / Unknown 03/18/2023 2:42 PM REFRACTORY TECHNICIAN 03/18/2023 2:48 PM REFRACTORY TECHNICIAN Luis A FISH - JERED POCT Performing Organization Address [place] [facility] Co de Phone Number [facility] [place] [facility] [address] [facility], [address] [place] [phone], [facility] [phone] * Adult Type and Screen (03/18/2023 10:38 AM REFRACTORY TECHNICIAN) ABO/RH(D) O POS 03/18/2023 10:02 AM REFRACTORY TECHNICIAN [facility] Antibody Screen Negative Negative 03/18/2023 10:02 AM REFRACTORY TECHNICIAN [facility] SPECIMEN EXPIRATION DATE [id number] 03/18/2023 10:02 AM REFRACTORY TECHNICIAN [facility] Blood STRUCTURE OF LEFT HAND / Unknown Venipuncture / Unknown 03/18/2023 10:38 AM REFRACTORY TECHNICIAN 03/18/2023 10:55 AM REFRACTORY TECHNICIAN Luis A Escobedo MD LAB - BLOOD BANK TEST ORDER Performing Organization Address [facility]/ZIP Co de Phone Number [facility] B[facility] B[facility] [address] [place] [phone] * (ABNORMAL) Glucose by meter (03/18/2023 9:22 AM REFRACTORY TECHNICIAN) GLUCOSE BY METER POCT 100(H) 70 - 99 mg/dL 03/18/2023 9:36 AM REFRACTORY TECHNICIAN [facility] Blood, Capillary BLOOD SPECIMEN / Unknown 03/18/2023 9:22 AM REFRACTORY TECHNICIAN 03/18/2023 9:36 AM REFRACTORY TECHNICIAN Luis A LAWTON POCT [facility] [address] [facility], [address] [place] [id number], [facility] [phone] documented in this encounter Visit Diagnoses Diagnosis Morbid obesity (H)- Primary Morbid obesity Morbid obesity (H) Morbid obesity Acute post-operative pain Other acute postoperative pain S/P laparoscopic sleeve gastrectomy Morbid obesity (H) Morbid obesity documented in this encounter Admitting Diagnoses Diagnosis Morbid obesity (H) Morbid obesity documented in this encounter Administered Medications Inactive Administered Medications - up to 3 most recent administrations Medication Order MAR Action Action Date Dose Rate Site atorvastatin (LIPITOR) tablet 40 mg 40 mg, Oral, EVERY EVENING, First dose on Thu03/18/23 at 2000 $Given 03/18/2023 7:30 PM REFRACTORY TECHNICIAN 40 mg BUPivacaine (MARCAINE) 0.25 % 30 mL in sodium chloride 0.9% (bottle) 90 mL OR mixture PRN, Starting on Thu03/18/23 at 1230, Intra-procedure $Given 03/18/2023 2:14 PM REFRACTORY TECHNICIAN 90 mLs Operative Site/Surgical Site $Given 03/18/2023 12:30 PM REFRACTORY TECHNICIAN 20 mLs O perative Site/Surgical Site cyanocobalamin (VITAMIN B-12) sublingual tablet 500 mcg 500 mcg, Sublingual, DAILY, First dose (after last modification) on Thu03/18/23 at 1930 $Given 03/19/2023 8:43 AM REFRACTORY TECHNICIAN 500 mcg $Given 03/18/2023 7:09 PM REFRACTORY TECHNICIAN 500 mcg dextrose 50 % injection 25-50 mL 25-50 mL, Intravenous, EVERY 15 MIN PRN, low blood sugar, Administer over 1-5 Minutes, Starting on Thu03/18/23 at 1753, Use if have IV access, BG less than 70 mg/dL and meet dose criteria below: Dose if conscious and alert (or disorientated) and NPO = 25 mL Dose if unconscious / not alert = 50 mL Give first dose for initial blood glucose less than 70 mg/dL. If blood glucose at 15 minute recheck is less than or equal to 80 mg/dL continue to administer carbohydrate treatment every 15 minutes, as needed, based on blood glucose and assessment parameters until blood glucose level is above 80 mg/dL x 2 consecutive 15 minute checks. Vesicant. diphenhydrAMINE (BENADRYL) capsule 25 mg 25 mg, Oral, EVERY 6 HOURS PRN, itching, Starting on Thu03/18/23 at 1753, Caution to be used when administering multiple Central Nervous System (MANUFACTURING WEAVER) depressing meds within a short time frame. diphenhydrAMINE (BENADRYL) injection 25 mg 25 mg, Intravenous, EVERY 6 HOURS PRN, itching, Only give if patient unable to take PO., Starting on Thu03/18/23 at 1753, Caution to be used when administering multiple Central Nervous System (MANUFACTURING WEAVER) depressing meds within a short time frame. Protect from light. enoxaparin ANTICOAGULANT (LOVENOX) injection 40 mg 40 mg, Subcutaneous, EVERY 24 HOURS, First dose on Li 03/19/23 at 0900, Check to make sure start date/time is 12-24 hours post op unless documented complication, AND no sooner than 22 hours post op if spinal anesthesia used. HOLD if platelet count falls below 50% of baseline or less than 100,000/??L and notify provider. $Given 03/19/2023 8:43 AM REFRACTORY TECHNICIAN 40 mg gabapentin (NEURONTIN) tablet 600 mg 600 mg, Oral, AT BEDTIME, First dose on Thu03/18/23 at 2200 $Given 03/18/2023 10:24 PM REFRACTORY TECHNICIAN 600 mg glucagon injection 1 mg 1 mg, Subcutaneous, EVERY 15 MIN PRN, low blood sugar, May repeat x 1 only, Starting on Thu03/18/23 at 1753, May give SQ or IM. ONLY use glucagon IF patient has NO IV access AND is UNABLE to swallow AND blood glucose is LESS than or EQUAL to 50 mg/dL. glucose gel 15-30 g 15-30 g, Oral, EVERY 15 MIN PRN, low blood sugar, Starting on Thu03/18/23 at 1753, Give first dose for initial blood glucose less than 70 mg/dL per the dosing instructions below. If blood glucose at 15 minute rechecks is still less than or equal to 80 mg/dL, continue to administer doses per blood glucose parameters every 15 minutes, as needed, until blood glucose level is at or above 80 mg/dL x 2 consecutive 15 minute checks. Dosing Instructions: ~If patient is conscious and able to swallow and NO enteral tube For initial BG 51-69mg/dL OR 15 minute recheck BG 51- 80 mg/dL - give 15 g For BG less than or equal to 50 mg/dL - give 30 g ~ If Enteral tube For initial BG 51-69mg/dL OR 15 minute recheck BG 51- 80 mg/dL - give apple juice 120 mL (4 oz or 15 g of CHO) via enteral tube For BG less than or equal to 50 mg/dL - Give apple juice 240 mL (8 oz or 30 g of CHO) via enteral tube ~Oral gel is preferable for conscious and able to swallow patient. ~IF gel unavailable or patient refuses may provide apple juice per Enteral tube dosing instructions. Document juice on I and O flowsheet. HYDROmorphone (DILAUDID) injection 0.2 mg 0.2 mg, Intravenous, EVERY 2 HOURS PRN, other, For optimal opioid multimodal pain management to improve pain control and physical function IF patient cannot take oral opioid., Starting on Thu03/18/23 at 1753, ~ Administer for pain not controlled by oral opioid. ~ Hold dose while on IV ARCHITECTURAL REPRESENTATIVE. ~ Hold dose for analgesic side effects. ~ Notify provider to assess patient for uncontrolled pain or analgesic side effects. ~ Discontinue within 48 hours of surgery to facilitate transition to oral pain management. $Given 03/19/2023 8:39 AM REFRACTORY TECHNICIAN 0.2 mg $Given 03/19/2023 4:16 AM REFRACTORY TECHNICIAN 0.2 mg $Given 03/19/2023 12:00 AM REFRACTORY TECHNICIAN 0.2 mg hyoscyamine (LEVSIN/SL) sublingual tablet 125 mcg 125 mcg, Sublingual, EVERY 4 HOURS PRN, cramping, Starting on Li 03/19/23 at 0632, Patients using antacids should take hyoscyamine before meals and the antacid after meals. insulin aspart (NovoLOG) injection (RAPID ACTING) 1-3 Units, Subcutaneous, 3 TIMES DAILY BEFORE MEALS, First dose on Thu03/18/23 at 1800, Correction Scale - LOW INSULIN RESISTANCE DOSING Do Not give Correction Insulin if Pre-Meal BG less than 140. For Pre-Meal BG 140 - 239 give 1 unit. For Pre-Meal BG 240 - 339 give 2 units. For Pre-Meal BG greater than or equal to 340 give 3 units. To be given with prandial insulin, and based on pre-meal blood glucose. Administering insulin within 5 minutes of the start of the meal is ideal. Administer insulin no more than 30 minutes after the start of the meal, unless directed otherwise by provider. Notify provider if glucose greater than or equal to 350 mg/dL after administration of correction dose. $Given 03/18/2023 7:33 PM REFRACTORY TECHNICIAN 1 Units lactated ringers infusion at 75 mL/hr, Intravenous, CONTINUOUS, Infuse at 75 mL/hr until patient tolerating clear liquids, then discontinue., Starting on Thu03/18/23 at 1500, Until Li 03/19/23 at 1620 Rate/Dose Verify 03/19/2023 8:47 AM REFRACTORY TECHNICIAN 75 mL/hr $New Bag 03/19/2023 2:48 AM REFRACTORY TECHNICIAN 75 mL/hr Rate/Dose Verify 03/18/2023 8:17 PM REFRACTORY TECHNICIAN 75 mL/h r levothyroxine (SYNTHROID/LEVOTHROID) tablet 225 mcg 225 mcg, Oral, AT BEDTIME, First dose on Thu03/18/23 at 2200, Separate oral administration of iron- or calcium-containing products and levothyroxine by at least 4 hours. $Given 03/18/2023 10:25 PM REFRACTORY TECHNICIAN 225 mcg naloxone (NARCAN) injection 0.2 mg 0.2 mg, Intravenous, EVERY 2 MIN PRN, opioid reversal, Starting on Thu03/18/23 at 1801, Administer intravenous route when available and notify provider when administered. For unintended sedation or respiratory depression if all of the below criteria are met: ~ respiratory rate LESS than or EQUAL to 8. ~SaO2 less than 92% and or/end-tidal CO2 is greater than 50. ~ the patient is receiving an opioid, has unintended sedations assessed as RASS (-3), and is currently not on mechanical ventilation. RASS scale moderate (-3) is movement or eye opening to voice but no eye contact. Patient Monitoring Once the patient has demonstrated a response to the naloxone, continue to monitor respiratory rate, depth, oxygen saturation and end-tidal CO2 (if available) every 15 minutes x 2, then every 30 minutes x 2, then every 1 hour x 1 after each naloxone dose. Consider transfer to ICU if patient respiratory parameters have not improved after 4 naloxone doses. naloxone (NARCAN) injection 0.2 mg 0.2 mg, Intramuscular, EVERY 2 MIN PRN, opioid reversal, Starting on Thu03/18/23 at 1801, Administer intramuscular if an intravenous route is not available and notify provider when administered. For unintended sedation or respiratory depression if all of the below criteria are met: ~ respiratory rate LESS than or EQUAL to 8. ~SaO2 less than 92% and or/end-tidal CO2 is greater than 50. ~ the patient is receiving an opioid, has unintended sedations assessed as RASS (-3), and is currently not on mechanical ventilation. RASS scale moderate (-3) is movement or eye opening to voice but no eye contact. Patient Monitoring Once the patient has demonstrated a response to the naloxone, continue to monitor respiratory rate, depth, oxygen saturation and end-tidal CO2 (if available) every 15 minutes x 2, then every 30 minutes x 2, then every 1 hour x 1 after each naloxone dose. Consider transfer to ICU if patient respiratory parameters have not improved after 4 naloxone doses. naloxone (NARCAN) injection 0.4 mg 0.4 mg, Intravenous, EVERY 2 MIN PRN, opioid reversal, Starting on Thu03/18/23 at 1801, Administer intravenous route when available and notify provider when administered. For unintended sedation or respiratory depression if all of the below criteria are met: ~ respiratory rate LESS than or EQUAL to 8. ~ SaO2 less than 92% and or/end-tidal CO2 is greater than 50. ~ the patient is receiving an opioid, has unintended sedation assessed as RASS (-4) or (-5) and patient is currently not on mechanical ventilation. RASS scale (-4) is deep sedation with no response to voice but movement or eye opening to physical stimulation. RASS scale (-5) is unarousable. Patient Monitoring Once the patient has demonstrated a response to the naloxone, continue to monitor respiratory rate, depth, oxygen saturation and end-tidal CO2 (if available) every 15 minutes x 2, then every 30 minutes x 2, then every 1 hour x 1 after each naloxone dose. Consider transfer to ICU if patient respiratory parameters have not improved after 4 naloxone doses. naloxone (NARCAN) injection 0.4 mg 0.4 mg, Intramuscular, EVERY 2 MIN PRN, opioid reversal, Starting on Thu03/18/23 at 1801, Administer intramuscular if an intravenous route is not available and notify provider when administered. For unintended sedation or respiratory depression if all of the below criteria are met: ~ respiratory rate LESS than or EQUAL to 8. ~ SaO2 less than 92% and or/end-tidal CO2 is greater than 50. ~ the patient is receiving an opioid, has unintended sedation assessed as RASS (-4) or (-5) and patient is currently not on mechanical ventilation. RASS scale (-4) is deep sedation with no response to voice but movement or eye opening to physical stimulation. RASS scale (-5) is unarousable. Patient Monitoring Once the patient has demonstrated a response to the naloxone, continue to monitor respiratory rate, depth, oxygen saturation and end-tidal CO2 (if available) every 15 minutes x 2, then every 30 minutes x 2, then every 1 hour x 1 after each naloxone dose. Consider transfer to ICU if patient respiratory parameters have not improved after 4 naloxone doses. ondansetron (ZOFRAN ODT) ODT tab 4 mg 4 mg, Oral, EVERY 6 HOURS PRN, nausea, vomiting, Starting on Thu03/18/23 at 1753, This is Step 1 of nausea and vomiting management. If nausea not resolved in 15 minutes, go to Step 2 prochlorperazine (COMPAZINE). Do not push through foil backing. Peel back foil and gently remove. Place on tongue immediately. Administration with liquid unnecessary With dry hands, peel back foil backing and gently remove tablet. Do not push oral disintegrating tablet through foil backing. Administer immediately on tongue and oral disintegrating tablet dissolves in seconds, then swallow with saliva. Liquid not required. ondansetron (ZOFRAN) injection 4 mg 4 mg, Intravenous, EVERY 6 HOURS PRN, nausea, vomiting, Administer over 2-5 Minutes, Starting on Thu03/18/23 at 1753, This is Step 1 of nausea and vomiting management. If nausea not resolved in 15 minutes, go to Step 2 prochlorperazine (COMPAZINE). Irritant. oxyCODONE (ROXICODONE) tablet 5 mg 5 mg, Oral, EVERY 3 HOURS PRN, other, moderate pain (pain rating 4-6), Starting on Thu03/18/23 at 1753, Hold oral PRN dose for analgesic side effects. Notify provider to assess for uncontrolled pain or analgesic side effects. Hold while on IV ARCHITECTURAL REPRESENTATIVE or with regular IV opioid dosing. $Given 03/18/2023 7:09 PM REFRACTORY TECHNICIAN 5 m g oxyCODONE IR (ROXICODONE) tablet 10 mg 10 mg, Oral, EVERY 3 HOURS PRN, severe pain, (pain rating 7-10), Starting on Thu03/18/23 at 1753, Hold oral PRN dose for analgesic side effects. Notify provider to assess for uncontrolled pain or analgesic side effects. Hold while on IV ARCHITECTURAL REPRESENTATIVE or with regular IV opioid dosing. $Given 03/19/2023 1:03 PM REFRACTORY TECHNICIAN 10 mg $Given 03/19/2023 9:51 AM REFRACTORY TECHNICIAN 10 mg $Given 03/19/2023 6:20 AM REFRACTORY TECHNICIAN 10 mg prochlorperazine (COMPAZINE) injection 10 mg 10 mg, Intravenous, EVERY 6 HOURS PRN, nausea, vomiting, Administer over 1-2 Minutes, Starting on Thu03/18/23 at 1753, This is Step 2 of the nausea and vomiting management. prochlorperazine (COMPAZINE) tablet 10 mg 10 mg, Oral, EVERY 6 HOURS PRN, nausea, vomiting, Starting on Thu03/18/23 at 1753, This is Step 2 of the nausea and vomiting management. rOPINIRole (REQUIP) tablet 2 mg 2 mg, Oral, 2 TIMES DAILY, First dose on Thu03/18/23 at 2000 $Given 03/19/2023 8:43 AM REFRACTORY TECHNICIAN 2 mg scopolamine (TRANSDERM-SCOP) Patch in Place First dose on Thu03/18/23 at 1530, Chart every shift, confirming that patch is still in place on patient (no barcode scan needed). See patch order for dose information. senna-docusate (SENOKOT-S/PERICOLACE) 8.6-50 MG per tablet 2 tablet 2 tablet, Oral, 2 TIMES DAILY, First dose on Thu03/18/23 at 2000, Hold for loose stools. Preferred agent for constipation related to opioids. Hold for loose stools. $Given 03/19/2023 8:42 AM REFRACTORY TECHNICIAN 2 tablets $Given 03/18/2023 7:30 PM REFRACTORY TECHNICIAN 1 tablet sodium chloride (PF) 0.9% PF flush 3 mL 3 mL, Intracatheter, EVERY 8 HOURS, First dose on Thu03/18/23 at 1800, to lock peripheral IV dormant line $Given 03/18/2023 7:35 PM REFRACTORY TECHNICIAN 3 mLs documented in this encounter Active and Recently Administered Medications Times are shown in REFRACTORY TECHNICIAN. Scheduled Medication Order 03/17/2023 03/18/2023 03/19/2023 acetaminophen (TYLENOL) tablet 975 mg (COMPLETED) 975 mg, Oral, ONCE, On Thu03/18/23 at 0930, For 1 dose, Give 60 minutes prior to procedure. Maximum acetaminophen dose from all sources = 75 mg/kg/day not to exceed 4 grams/day., Pre-procedure 1027 ($Given - Provider: Maria Del Carmen Rios RN) acetaminophen (TYLENOL) tablet 975 mg (COMPLETED) 975 mg, Oral, ONCE, On Thu03/18/23 at 1630, For 1 dose, Maximum acetaminophen dose from all sources = 75 mg/kg/day not to exceed 4 grams/day. 1619 ($Given - Provider: Kaykay Rodríguez RN) amisulpride (BARHEMSYS) injection 10 mg (COMPLETED) 10 mg, Intravenous, ONCE, Administer over 1-2 Minutes, On Thu03/18/23 at 1530, For 1 dose, Protect from Light. 1559 ($Given - Provider: Kaykay Rodríguez RN) atorvastatin (LIPITOR) tablet 40 mg 40 mg, Oral, EVERY EVENING, First dose on Thu03/18/23 at 2000 1930 ($Given - Provider: Oralia Morelos RN) ceFAZolin Sodium (ANCEF) injection 3 g (COMPLETED) Routine, 3 g, Intravenous, PRE-OP/PRE-PROCEDURE, Starting on Thu03/18/23 at 0909, For 1 dose, Give first dose within 1 hour PRIOR to incision., Indications: Perioperative Pharmacoprophylaxis, Pre-procedure 1028 (Canceled Entry - Provider: Maria Del Carmen Rios RN)1205 ($Given - Provider: Emerita Jacques APRN ONCOLOGIST) cyanocobalamin (VITAMIN B-12) sublingual tablet 500 mcg 500 mcg, Sublingual, DAILY, First dose (after last modification) on Thu03/18/23 at 1930 1909 ($Given - Provider: Radha Sommers, KSIP) 0843 ($Given - Provider: Ibis Key, SKIP) enoxaparin ANTICOAGULANT (LOVENOX) injection 40 mg (COMPLETED) 40 mg, Subcutaneous, PRE-OP/PRE-PROCEDURE, Starting on Thu03/18/23 at 0909, For 1 dose, Pre-procedure 1027 ($Given - Provider: Maria Del Carmen Rios RN) enoxaparin ANTICOAGULANT (LOVENOX) injection 40 mg 40 mg, Subcutaneous, EVERY 24 HOURS, First dose on Li 03/19/23 at 0900, Check to make sure start date/time is 12-24 hours post op unless documented complication, AND no sooner than 22 hours post op if spinal anesthesia used. HOLD if platelet count falls below 50% of baseline or less than 100,000/??L and notify provider. 0843 ($Given - Provi andrade: Ibis Key, SKIP) famotidine (PEPCID) injection 20 mg (COMPLETED) 20 mg, Intravenous, Administer over 2 Minutes, LIFE SCIENCES TEACHER TO O.R., Starting on Thu03/18/23 at 0909, For 1 dose, Give unless patient already took any of the following at home the morning of surgery: famotidine (PEPCID), ranitidine (ZANTAC), cimetidine (TAGAMET), nizatadine (AXID). For ordered IV doses 1-20 mg, give IV Push diluted with 5-10 mL NS over a minimum of 2 minutes., Pre-procedure 1143 ($Given - Provider: Emerita Jacques APRN ONCOLOGIST) gabapentin (NEURONTIN) tablet 600 mg 600 mg, Oral, AT BEDTIME, First dose on Thu03/18/23 at 2200 2224 ($Given - Provider: Oralia Morelos RN) insulin aspart (NovoLOG) injection (RAPID ACTING) 1-3 Units, Subcutaneous, 3 TIMES DAILY BEFORE MEALS, First dose on Thu03/18/23 at 1800, Correction Scale - LOW INSULIN RESISTANCE DOSING Do Not give Correction Insulin if Pre-Meal BG less than 140. For Pre-Meal BG 140 - 239 give 1 unit. For Pre-Meal BG 240 - 339 give 2 units. For Pre-Meal BG greater than or equal to 340 give 3 units. To be given with prandial insulin, and based on pre-meal blood glucose. Administering insulin within 5 minutes of the start of the meal is ideal. Administer insulin no more than 30 minutes after the start of the meal, unless directed otherwise by provider. Notify provider if glucose greater than or equal to 350 mg/dL after administration of correction dose. 1933 ($Given - Provider: Oralia Morelos RN - Comment: BG 145) 0737 (Not Given - Provider: Ibis Key RN - Reason: Order parameters not met - Comment: 120)1205 (Not Given - Provider: Ibis Key RN - Reason: Order parameters not met - Comment: 91) insulin aspart (NovoLOG) injection (RAPID ACTING) 1-3 Units, Subcutaneous, AT BEDTIME, First dose on Thu03/18/23 at 2200, LOW INSULIN RESISTANCE DOSING Do Not give Bedtime Correction Insulin if BG less than 200. For BG 200 - 299 give 1 unit. For BG 300 - 399 give 2 units For BG greater than or equal 400 give 3 units. Notify provider if glucose greater than or equal to 350 mg/dL after administration of correction dose. 2227 (Not Given - Provider: Oralia Morelos RN - Reason: Order parameters not met - Comment: BG 143) insulin regular 1 unit/mL injection 2 Units (COMPLETED) 2 Units, Intravenous, ONCE, On Thu03/18/23 at 1500, For 1 dose 1449 ($Given - Provider: Kaykay Rodríguez RN) levothyroxine (SYNTHROID/LEVOTHROID) tablet 225 mcg 225 mcg, Oral, AT BEDTIME, First dose on Thu03/18/23 at 2200, Separate oral administration of iron- or calcium-containing products and levothyroxine by at least 4 hours. 2225 ($Given - Provider: Oralia Morelos RN) methocarbamol (ROBAXIN) injection 500 mg (COMPLETED) 500 mg, Intravenous, ONCE, On Thu03/18/23 at 1630, For 1 dose, Do not refrigerate. 1624 ($Given - Provider: Kaykay Rodríguez RN) omeprazole (PriLOSEC) CR capsule 40 mg 40 mg, Oral, EVERY EVENING, First dose on Thu03/18/23 at 2000, Open capsule and mix intact pellets with 1 teaspoon clear liquid (ex. Jell-O or applesauce). 2019 (Not Given - Provider: Oralia Morelos RN - Reason: Patient/family refused) rOPINIRole (REQUIP) tablet 2 mg 2 mg, Oral, 2 TIMES DAILY, First dose on Thu03/18/23 at 2000 1958 (Not Given - Provider: Oralia Morelos RN - Reason: Other - Comment: already given) 0843 ($Given - Provider: Ibis Key, SKIP) scopolamine (TRANSDERM) 72 hr patch 1 patch(Linked Group 1) 1 patch, Transdermal, EVERY 72 HOURS, Administer over 72 Hours, First dose on Thu03/21/23 at 1500, Apply patch to skin, behind ear. Remove every 72 hours. DO NOT CUT PATCH. If dose is for a half or quarter patch, RN to remove only half or quarter of the backing. Each 1.5 mg patch delivers 1 mg of scopolamine. Reminder: Remove previous patch before applying new patch. scopolamine (TRANSDERM) 72 hr patch 1 patch(Linked Group 2) 1 patch, Transdermal, ONCE, Administer over 72 Hours, On Thu03/18/23 at 1530, For 1 dose, Apply patch to skin, behind ear. Remove every 72 hours. DO NOT CUT PATCH. If dose is for a half or quarter patch, RN to remove only half or quarter of the backing. Each 1.5 mg patch delivers 1 mg of scopolamine. Reminder: Remove previous patch before applying new patch. 1510 ($Patch/Med Applied - Provider: Kaykay Rodríguez RN) 1335 (Due: Patch/Med Removed - Provider: Orders Generic Provider - Comment: Time automatically adjusted from order being discontinued) scopolamine (TRANSDERM-SCOP) Patch in Place(Linked Group 2) First dose on Thu03/18/23 at 1530, Chart every shift, confirming that patch is still in place on patient (no barcode scan needed). See patch order for dose information. 1934 (Patch in Place - Provider: Oralia Morelos RN)2240 (Patch in Place - Provider: Oralia Morelos RN) 0847 (Patch in Place - Provider: Ibis Key RN)1530 (Canceled Entry - Provider: Orders Generic Provider - Comment: Automatically canceled at discontinue of medication order) senna-docusate (SENOKOT-S/PERICOLACE) 8.6-50 MG per tablet 2 tablet 2 tablet, Oral, 2 TIMES DAILY, First dose on Thu03/18/23 at 2000, Hold for loose stools. Preferred agent for constipation related to opioids. Hold for loose stools. 1930 ($Given - Provider: Oralia Morelos RN - Comment: pt only wants 1) 0842 ($Given - Provider: Ibis Key, SKIP) sodium chloride (PF) 0.9% PF flush 3 mL 3 mL, Intracatheter, EVERY 8 HOURS, First dose on Thu03/18/23 at 1800, to lock peripheral IV dormant line 193 ($Given - Provider: Oralia Morelos RN) 0622 (Not Given - Provider: Brandan Hernandez RN - Reason: IV Infusing)0932 (Not Given - Provider: Ibis Key, SKIP - Reason: IV Infusing) Continuous Medication Order 03/17/2023 03/18/2023 03/19/2023 lactated ringers infusion at 75 mL/hr, Intravenous, CONTINUOUS, Infuse at 75 mL/hr until patient tolerating clear liquids, then discontinue., Starting on Thu03/18/23 at 1500, Until Li 03/19/23 at 1620 1455 ($New Bag - Provider: Kaykay Rodríguez RN)1830 (Rate/Dose Verify - Provider: Melody Barksdale RN)2017 (Rate/Dose Verify - Provider: Oralia Morelos RN) 0248 ($New Bag - Provider: Brandan Hernandez, SKIP)0847 (Rate/Dose Verify - Provider: Ibis Key, SKIP)1147 (Stopped - Provider: Ibis Key RN - Comment: PIV removed) PRN Medication Order 03/17/2023 03/18/2023 03/19/2023 acetaminophen (TYLENOL) tablet 650 mg 650 mg, Oral, EVERY 4 HOURS PRN, other, For optimal non-opioid multimodal pain management to improve pain control and physical function., Starting on Thu03/18/23 at 1753, Maximum acetaminophen dose from all sources = 75 mg/kg/day not to exceed 4 grams/day. BUPivacaine (MARCAINE) 0.25 % 30 mL in sodium chloride 0.9% (bottle) 90 mL OR mixture (CANCELED) PRN, Starting on Thu03/18/23 at 1230, Intra-procedure 1230 ($Given - Provider: Luis A Escobedo MD)1414 ($Given - Provider: Luis A Escobedo MD) dextrose 50 % injection 25-50 mL(Linked Group 3) 25-50 mL, Intravenous, EVERY 15 MIN PRN, low blood sugar, Administer over 1-5 Minutes, Starting on Thu03/18/23 at 1753, Use if have IV access, BG less than 70 mg/dL and meet dose criteria below: Dose if conscious and alert (or disorientated) and NPO = 25 mL Dose if unconscious / not alert = 50 mL Give first dose for initial blood glucose less than 70 mg/dL. If blood glucose at 15 minute recheck is less than or equal to 80 mg/dL continue to administer carbohydrate treatment every 15 minutes, as needed, based on blood glucose and assessment parameters until blood glucose level is above 80 mg/dL x 2 consecutive 15 minute checks. Vesicant. diphenhydrAMINE (BENADRYL) capsule 25 mg(Linked Group 4) 25 mg, Oral, EVERY 6 HOURS PRN, itching, Starting on Thu03/18/23 at 1753, Caution to be used when administering multiple Central Nervous System (MANUFACTURING WEAVER) depressing meds within a short time frame. diphenhydrAMINE (BENADRYL) injection 25 mg(Linked Group 4) 25 mg, Intravenous, EVERY 6 HOURS PRN, itching, Only give if patient unable to take PO., Starting on Thu03/18/23 at 1753, Caution to be used when administering multiple Central Nervous System (MANUFACTURING WEAVER) depressing meds within a short time frame. Protect from light. enalaprilat (VASOTEC) injection 1.25 mg 1.25 mg, Intravenous, EVERY 6 HOURS PRN, high blood pressure, greater than 170/100 mmHg, Administer over 5 Minutes, Starting on Thu03/18/23 at 1753 fentaNYL (PF) (SUBLIMAZE) injection 50 mcg (CANCELED) 50 mcg, Intravenous, EVERY 5 MIN PRN, severe pain, Give fentaNYL (SUBLIMAZE) first if HYDROmorphone (DILAUDID) also ordered., Starting on Thu03/18/23 at 1430, Administer fentaNYL (SUBLIMAZE) for acute pain control. Move to HYDROmorphone (DILAUDID): - IF patient has received up to 200 mcg of fentaNYL (SUBLIMAZE), OR - IF patient has received 2 doses of fentaNYL (SUBLIMAZE) AND continues to have severe pain (pain score greater than or equal to seven (7) or is unable to participate in post op recovery due to pain. Wait 5 minutes AFTER last fentaNYL (SUBLIMAZE) dose before administering HYDROmorphone (DILADUDID). Postop Anesthesia Phase I only. Notify Provider to assess for uncontrolled pain or analgesic side effects. DO NOT revert back to fentanyl (SUBLIMAZE) after moving to HYDROmorphone (DILAUDID)., PACU 1435 ($Given - Provider: Kaykay Rodríguez, RN)1443 ($Given - Provider: Kaykay Rodríguez RN) glucagon injection 1 mg(Linked Group 3) 1 mg, Subcutaneous, EVERY 15 MIN PRN, low blood sugar, May repeat x 1 only, Starting on Thu03/18/23 at 1753, May give SQ or IM. ONLY use glucagon IF patient has NO IV access AND is UNABLE to swallow AND blood glucose is LESS than or EQUAL to 50 mg/dL. glucose gel 15-30 g(Linked Group 3) 15-30 g, Oral, EVERY 15 MIN PRN, low blood sugar, Starting on Thu03/18/23 at 1753, Give first dose for initial blood glucose less than 70 mg/dL per the dosing instructions below. If blood glucose at 15 minute rechecks is still less than or equal to 80 mg/dL, continue to administer doses per blood glucose parameters every 15 minutes, as needed, until blood glucose level is at or above 80 mg/dL x 2 consecutive 15 minute checks. Dosing Instructions: ~If patient is conscious and able to swallow and NO enteral tube For initial BG 51-69mg/dL OR 15 minute recheck BG 51- 80 mg/dL - give 15 g For BG less than or equal to 50 mg/dL - give 30 g ~ If Enteral tube For initial BG 51-69mg/dL OR 15 minute recheck BG 51- 80 mg/dL - give apple juice 120 mL (4 oz or 15 g of CHO) via enteral tube For BG less than or equal to 50 mg/dL - Give apple juice 240 mL (8 oz or 30 g of CHO) via enteral tube ~Oral gel is preferable for conscious and able to swallow patient. ~IF gel unavailable or patient refuses may provide apple juice per Enteral tube dosing instructions. Document juice on I and O flowsheet. HYDROmorphone (DILAUDID) injection 0.2 mg (CANCELED) 0.2 mg, Intravenous, EVERY 5 MIN PRN, moderate pain, Starting on Thu03/18/23 at 1430, Use FentaNYL (SUBLIMAZE) first if ordered. Administer HYDROmorphone (DILAUDID) up to a total of 2 mg for moderate or severe pain. Notify Provider to assess for uncontrolled pain or analgesic side effects., PACU 1448 ($Given - Provider: Kaykay Rodríguez RN)1453 ($Given - Provider: Kaykay Rodríguez, RN)1540 ($Given - Provider: Kaykay Rodríguez RN)1545 ($Given - Provider: Kaykay Rodríguez RN) HYDROmorphone (DILAUDID) injection 0.2 mg 0.2 mg, Intravenous, EVERY 2 HOURS PRN, other, For optimal opioid multimodal pain management to improve pain control and physical function IF patient cannot take oral opioid., Starting on Thu03/18/23 at 1753, ~ Administer for pain not controlled by oral opioid. ~ Hold dose while on IV ARCHITECTURAL REPRESENTATIVE. ~ Hold dose for analgesic side effects. ~ Notify provider to assess patient for uncontrolled pain or analgesic side effects. ~ Discontinue within 48 hours of surgery to facilitate transition to oral pain management. 2015 ($Given - Provider: Oralia Morelos RN) 0000 ($Given - Provider: Brandan Hernandez, SKIP)0416 ($Given - Provider: Brandan Hernandez RN)0839 ($Given - Provider: Ibis Key, RN) HYDROmorphone (DILAUDID) injection 0.4 mg (CANCELED) 0.4 mg, Intravenous, EVERY 5 MIN PRN, severe pain, Starting on Thu03/18/23 at 1430, Use FentaNYL (SUBLIMAZE) first if ordered. Administer HYDROmorphone (DILAUDID) up to a total of 2 mg for moderate or severe pain. Notify Provider to assess for uncontrolled pain or analgesic side effects., PACU 1458 ($Given - Provider: Kaykay Rodríguez RN)1502 ($Given - Provider: Kaykay Rodríguez RN)1540 (Canceled Entry - Provider: Kaykay Rodríguez RN)1550 ($Given - Provider: Kaykay Rodríguez RN) hyoscyamine (LEVSIN/SL) sublingual tablet 125 mcg 125 mcg, Sublingual, EVERY 4 HOURS PRN, cramping, Starting on Li 03/19/23 at 0632, Patients using antacids should take hyoscyamine before meals and the antacid after meals. lidocaine (LMX4) cream Topical, EVERY 1 HOUR PRN, pain, with VAD insertion, Starting on Thu03/18/23 at 1753, Apply at least 30 minutes prior to VAD insertion in divided doses as needed for size of site for insertion. MAX Dose: 2.5 g (?? of 5 g tube) Do NOT give if patient has a history of allergy to any local anesthetic or any david product. Do NOT use both lidocaine intradermal/subcutaneous injection and the lidocaine cream on the same site. lidocaine 1 % 0.1-1 mL 0.1-1 mL, Other, EVERY 1 HOUR PRN, mild pain with VAD insertion, Starting on Thu03/18/23 at 1753, MAX dose 1 mL subcutaneous OR intradermal along the side of the vein in divided doses as needed for VAD insertion. Do NOT give if patient has a history of allergy to any local anesthetic or any david product. Do NOT use both lidocaine intradermal/subcutaneous injection and the lidocaine cream on the same site. naloxone (NARCAN) injection 0.2 mg(Linked Group 5) 0.2 mg, Intravenous, EVERY 2 MIN PRN, opioid reversal, Starting on Thu03/18/23 at 1801, Administer intravenous route when available and notify provider when administered. For unintended sedation or respiratory depression if all of the below criteria are met: ~ respiratory rate LESS than or EQUAL to 8. ~SaO2 less than 92% and or/end-tidal CO2 is greater than 50. ~ the patient is receiving an opioid, has unintended sedations assessed as RASS (-3), and is currently not on mechanical ventilation. RASS scale moderate (-3) is movement or eye opening to voice but no eye contact. Patient Monitoring Once the patient has demonstrated a response to the naloxone, continue to monitor respiratory rate, depth, oxygen saturation and end-tidal CO2 (if available) every 15 minutes x 2, then every 30 minutes x 2, then every 1 hour x 1 after each naloxone dose. Consider transfer to ICU if patient respiratory parameters have not improved after 4 naloxone doses. naloxone (NARCAN) injection 0.2 mg(Linked Group 5) 0.2 mg, Intramuscular, EVERY 2 MIN PRN, opioid reversal, Starting on Thu03/18/23 at 1801, Administer intramuscular if an intravenous route is not available and notify provider when administered. For unintended sedation or respiratory depression if all of the below criteria are met: ~ respiratory rate LESS than or EQUAL to 8. ~SaO2 less than 92% and or/end-tidal CO2 is greater than 50. ~ the patient is receiving an opioid, has unintended sedations assessed as RASS (-3), and is currently not on mechanical ventilation. RASS scale moderate (-3) is movement or eye opening to voice but no eye contact. Patient Monitoring Once the patient has demonstrated a response to the naloxone, continue to monitor respiratory rate, depth, oxygen saturation and end-tidal CO2 (if available) every 15 minutes x 2, then every 30 minutes x 2, then every 1 hour x 1 after each naloxone dose. Consider transfer to ICU if patient respiratory parameters have not improved after 4 naloxone doses. naloxone (NARCAN) injection 0.4 mg(Linked Group 5) 0.4 mg, Intravenous, EVERY 2 MIN PRN, opioid reversal, Starting on Thu03/18/23 at 1801, Administer intravenous route when available and notify provider when administered. For unintended sedation or respiratory depression if all of the below criteria are met: ~ respiratory rate LESS than or EQUAL to 8. ~ SaO2 less than 92% and or/end-tidal CO2 is greater than 50. ~ the patient is receiving an opioid, has unintended sedation assessed as RASS (-4) or (-5) and patient is currently not on mechanical ventilation. RASS scale (-4) is deep sedation with no response to voice but movement or eye opening to physical stimulation. RASS scale (-5) is unarousable. Patient Monitoring Once the patient has demonstrated a response to the naloxone, continue to monitor respiratory rate, depth, oxygen saturation and end-tidal CO2 (if available) every 15 minutes x 2, then every 30 minutes x 2, then every 1 hour x 1 after each naloxone dose. Consider transfer to ICU if patient respiratory parameters have not improved after 4 naloxone doses. naloxone (NARCAN) injection 0.4 mg(Linked Group 5) 0.4 mg, Intramuscular, EVERY 2 MIN PRN, opioid reversal, Starting on Thu03/18/23 at 1801, Administer intramuscular if an intravenous route is not available and notify provider when administered. For unintended sedation or respiratory depression if all of the below criteria are met: ~ respiratory rate LESS than or EQUAL to 8. ~ SaO2 less than 92% and or/end-tidal CO2 is greater than 50. ~ the patient is receiving an opioid, has unintended sedation assessed as RASS (-4) or (-5) and patient is currently not on mechanical ventilation. RASS scale (-4) is deep sedation with no response to voice but movement or eye opening to physical stimulation. RASS scale (-5) is unarousable. Patient Monitoring Once the patient has demonstrated a response to the naloxone, continue to monitor respiratory rate, depth, oxygen saturation and end-tidal CO2 (if available) every 15 minutes x 2, then every 30 minutes x 2, then every 1 hour x 1 after each naloxone dose. Consider transfer to ICU if patient respiratory parameters have not improved after 4 naloxone doses. ondansetron (ZOFRAN ODT) ODT tab 4 mg(Linked Group 6) 4 mg, Oral, EVERY 6 HOURS PRN, nausea, vomiting, Starting on Thu03/18/23 at 1753, This is Step 1 of nausea and vomiting management. If nausea not resolved in 15 minutes, go to Step 2 prochlorperazine (COMPAZINE). Do not push through foil backing. Peel back foil and gently remove. Place on tongue immediately. Administration with liquid unnecessary With dry hands, peel back foil backing and gently remove tablet. Do not push oral disintegrating tablet through foil backing. Administer immediately on tongue and oral disintegrating tablet dissolves in seconds, then swallow with saliva. Liquid not required. ondansetron (ZOFRAN) injection 4 mg (CANCELED)(Linked Group 7) 4 mg, Intravenous, EVERY 30 MIN PRN, nausea, Administer over 2-5 Minutes, Starting on Thu03/18/23 at 1430, For 2 doses, MAX total dose = 8 mg, including OR dosing. If not resolved in 15 minutes, then go to step 2 [prochlorperazine (COMPAZINE), if ordered]. Irritant., PACU 1438 ($Given - Provider: Kaykay Rodríguez RN) ondansetron (ZOFRAN) injection 4 mg(Linked Group 6) 4 mg, Intravenous, EVERY 6 HOURS PRN, nausea, vomiting, Administer over 2-5 Minutes, Starting on Thu03/18/23 at 1753, This is Step 1 of nausea and vomiting management. If nausea not resolved in 15 minutes, go to Step 2 prochlorperazine (COMPAZINE). Irritant. oxyCODONE (ROXICODONE) tablet 5 mg(Linked Group 8) 5 mg, Oral, EVERY 3 HOURS PRN, other, moderate pain (pain rating 4-6), Starting on Thu03/18/23 at 1753, Hold oral PRN dose for analgesic side effects. Notify provider to assess for uncontrolled pain or analgesic side effects. Hold while on IV ARCHITECTURAL REPRESENTATIVE or with regular IV opioid dosing. 1908 ($Given - Provider: Radha Sommers RN)2223 (See Alternative - Provider: Oralia Morelos RN) 0137 (See Alternative - Provider: Brandan Hernandez RN)0620 (See Alternative - Provider: Brandan Hernandez RN)0951 (See Alternative - Provider: Ibis Key, RN)1303 (See Alternative - Provider: Ibis Key, RN) oxyCODONE IR (ROXICODONE) tablet 10 mg(Linked Group 8) 10 mg, Oral, EVERY 3 HOURS PRN, severe pain, (pain rating 7-10), Starting on Thu03/18/23 at 1753, Hold oral PRN dose for analgesic side effects. Notify provider to assess for uncontrolled pain or analgesic side effects. Hold while on IV ARCHITECTURAL REPRESENTATIVE or with regular IV opioid dosing. 1908 (See Alternative - Provider: Radha Sommers RN)2223 ($Given - Provider: Oralia Morelos RN) 0137 ($Given - Provider: Brandan Hernandez RN)0620 ($Given - Provider: Brandan Hernandez RN)0951 ($Given - Provider: Ibis Key, SKIP)1303 ($Given - Provider: Ibis Key, RN) phenol (CHLORASEPTIC) 1.4 % spray 1-2 mL 1-2 mL (1-2 spray), Mouth/Throat, EVERY 2 HOURS PRN, sore throat, Starting on Thu03/18/23 at 1753 prochlorperazine (COMPAZINE) injection 10 mg(Linked Group 9) 10 mg, Intravenous, EVERY 6 HOURS PRN, nausea, vomiting, Administer over 1-2 Minutes, Starting on Thu03/18/23 at 1753, This is Step 2 of the nausea and vomiting management. prochlorperazine (COMPAZINE) injection 5 mg (CANCELED) 5 mg, Intravenous, EVERY 6 HOURS PRN, nausea, vomiting, Administer over 1-2 Minutes, Starting on Thu03/18/23 at 1430, PACU 1447 ($Given - Provider: Kaykay Rodríguez RN) prochlorperazine (COMPAZINE) tablet 10 mg(Linked Group 9) 10 mg, Oral, EVERY 6 HOURS PRN, nausea, vomiting, Starting on Thu03/18/23 at 1753, This is Step 2 of the nausea and vomiting management. sodium chloride (PF) 0.9% PF flush 3 mL 3 mL, Intracatheter, EVERY 1 MIN PRN, line flush, other, to ensure patency or to lock dormant line, Starting on Thu03/18/23 at 1753 Linked Groups Order Group 1: scopolamine (TRANSDERM) 72 hr patch 1 patchJump to med 1 patch, Transdermal, EVERY 72 HOURS, Administer over 72 Hours, First dose on Thu03/21/23 at 1500, Apply patch to skin, behind ear. Remove every 72 hours. DO NOT CUT PATCH. If dose is for a half or quarter patch, RN to remove only half or quarter of the backing. Each 1.5 mg patch delivers 1 mg of scopolamine. Reminder: Remove previous patch before applying new patch. And scopolamine (TRANSDERM-SCOP) Patch in Place (CANCELED) First dose on Thu03/18/23 at 1800, Chart every shift, confirming that patch is still in place on patient (no barcode scan needed). See patch order for dose information. Group 2: scopolamine (TRANSDERM) 72 hr patch 1 patchJump to med 1 patch, Transdermal, ONCE, Administer over 72 Hours, On Thu03/18/23 at 1530, For 1 dose, Apply patch to skin, behind ear. Remove every 72 hours. DO NOT CUT PATCH. If dose is for a half or quarter patch, RN to remove only half or quarter of the backing. Each 1.5 mg patch delivers 1 mg of scopolamine. Reminder: Remove previous patch before applying new patch. And scopolamine (TRANSDERM-SCOP) Patch in PlaceJump to med First dose on Thu03/18/23 at 1530, Chart every shift, confirming that patch is still in place on patient (no barcode scan needed). See patch order for dose information. Group 3: glucose gel 15-30 gJump to med 15-30 g, Oral, EVERY 15 MIN PRN, low blood sugar, Starting on Thu03/18/23 at 1753, Give first dose for initial blood glucose less than 70 mg/dL per the dosing instructions below. If blood glucose at 15 minute rechecks is still less than or equal to 80 mg/dL, continue to administer doses per blood glucose parameters every 15 minutes, as needed, until blood glucose level is at or above 80 mg/dL x 2 consecutive 15 minute checks. Dosing Instructions: ~If patient is conscious and able to swallow and NO enteral tube For initial BG 51-69mg/dL OR 15 minute recheck BG 51- 80 mg/dL - give 15 g For BG less than or equal to 50 mg/dL - give 30 g ~ If Enteral tube For initial BG 51-69mg/dL OR 15 minute recheck BG 51- 80 mg/dL - give apple juice 120 mL (4 oz or 15 g of CHO) via enteral tube For BG less than or equal to 50 mg/dL - Give apple juice 240 mL (8 oz or 30 g of CHO) via enteral tube ~Oral gel is preferable for conscious and able to swallow patient. ~IF gel unavailable or patient refuses may provide apple juice per Enteral tube dosing instructions. Document juice on I and O flowsheet. Or dextrose 50 % injection 25-50 mLJump to med 25-50 mL, Intravenous, EVERY 15 MIN PRN, low blood sugar, Administer over 1-5 Minutes, Starting on Thu03/18/23 at 1753, Use if have IV access, BG less than 70 mg/dL and meet dose criteria below: Dose if conscious and alert (or disorientated) and NPO = 25 mL Dose if unconscious / not alert = 50 mL Give first dose for initial blood glucose less than 70 mg/dL. If blood glucose at 15 minute recheck is less than or equal to 80 mg/dL continue to administer carbohydrate treatment every 15 minutes, as needed, based on blood glucose and assessment parameters until blood glucose level is above 80 mg/dL x 2 consecutive 15 minute checks. Vesicant. Or glucagon injection 1 mgJump to med 1 mg, Subcutaneous, EVERY 15 MIN PRN, low blood sugar, May repeat x 1 only, Starting on Thu03/18/23 at 1753, May give SQ or IM. ONLY use glucagon IF patient has NO IV access AND is UNABLE to swallow AND blood glucose is LESS than or EQUAL to 50 mg/dL. Group 4: diphenhydrAMINE (BENADRYL) capsule 25 mgJump to med 25 mg, Oral, EVERY 6 HOURS PRN, itching, Starting on Thu03/18/23 at 1753, Caution to be used when administering multiple Central Nervous System (MANUFACTURING WEAVER) depressing meds within a short time frame. Or diphenhydrAMINE (BENADRYL) injection 25 mgJump to med 25 mg, Intravenous, EVERY 6 HOURS PRN, itching, Only give if patient unable to take PO., Starting on Thu03/18/23 at 1753, Caution to be used when administering multiple Central Nervous System (MANUFACTURING WEAVER) depressing meds within a short time frame. Protect from light. Group 5: naloxone (NARCAN) injection 0.2 mgJump to med 0.2 mg, Intravenous, EVERY 2 MIN PRN, opioid reversal, Starting on Thu03/18/23 at 1801, Administer intravenous route when available and notify provider when administered. For unintended sedation or respiratory depression if all of the below criteria are met: ~ respiratory rate LESS than or EQUAL to 8. ~SaO2 less than 92% and or/end-tidal CO2 is greater than 50. ~ the patient is receiving an opioid, has unintended sedations assessed as RASS (-3), and is currently not on mechanical ventilation. RASS scale moderate (-3) is movement or eye opening to voice but no eye contact. Patient Monitoring Once the patient has demonstrated a response to the naloxone, continue to monitor respiratory rate, depth, oxygen saturation and end-tidal CO2 (if available) every 15 minutes x 2, then every 30 minutes x 2, then every 1 hour x 1 after each naloxone dose. Consider transfer to ICU if patient respiratory parameters have not improved after 4 naloxone doses. Or naloxone (NARCAN) injection 0.4 mgJump to med 0.4 mg, Intravenous, EVERY 2 MIN PRN, opioid reversal, Starting on Thu03/18/23 at 1801, Administer intravenous route when available and notify provider when administered. For unintended sedation or respiratory depression if all of the below criteria are met: ~ respiratory rate LESS than or EQUAL to 8. ~ SaO2 less than 92% and or/end-tidal CO2 is greater than 50. ~ the patient is receiving an opioid, has unintended sedation assessed as RASS (-4) or (-5) and patient is currently not on mechanical ventilation. RASS scale (-4) is deep sedation with no response to voice but movement or eye opening to physical stimulation. RASS scale (-5) is unarousable. Patient Monitoring Once the patient has demonstrated a response to the naloxone, continue to monitor respiratory rate, depth, oxygen saturation and end-tidal CO2 (if available) every 15 minutes x 2, then every 30 minutes x 2, then every 1 hour x 1 after each naloxone dose. Consider transfer to ICU if patient respiratory parameters have not improved after 4 naloxone doses. Or naloxone (NARCAN) injection 0.2 mgJump to med 0.2 mg, Intramuscular, EVERY 2 MIN PRN, opioid reversal, Starting on Thu03/18/23 at 1801, Administer intramuscular if an intravenous route is not available and notify provider when administered. For unintended sedation or respiratory depression if all of the below criteria are met: ~ respiratory rate LESS than or EQUAL to 8. ~SaO2 less than 92% and or/end-tidal CO2 is greater than 50. ~ the patient is receiving an opioid, has unintended sedations assessed as RASS (-3), and is currently not on mechanical ventilation. RASS scale moderate (-3) is movement or eye opening to voice but no eye contact. Patient Monitoring Once the patient has demonstrated a response to the naloxone, continue to monitor respiratory rate, depth, oxygen saturation and end-tidal CO2 (if available) every 15 minutes x 2, then every 30 minutes x 2, then every 1 hour x 1 after each naloxone dose. Consider transfer to ICU if patient respiratory parameters have not improved after 4 naloxone doses. Or naloxone (NARCAN) injection 0.4 mgJump to med 0.4 mg, Intramuscular, EVERY 2 MIN PRN, opioid reversal, Starting on Thu03/18/23 at 1801, Administer intramuscular if an intravenous route is not available and notify provider when administered. For unintended sedation or respiratory depression if all of the below criteria are met: ~ respiratory rate LESS than or EQUAL to 8. ~ SaO2 less than 92% and or/end-tidal CO2 is greater than 50. ~ the patient is receiving an opioid, has unintended sedation assessed as RASS (-4) or (-5) and patient is currently not on mechanical ventilation. RASS scale (-4) is deep sedation with no response to voice but movement or eye opening to physical stimulation. RASS scale (-5) is unarousable. Patient Monitoring Once the patient has demonstrated a response to the naloxone, continue to monitor respiratory rate, depth, oxygen saturation and end-tidal CO2 (if available) every 15 minutes x 2, then every 30 minutes x 2, then every 1 hour x 1 after each naloxone dose. Consider transfer to ICU if patient respiratory parameters have not improved after 4 naloxone doses. Group 6: ondansetron (ZOFRAN ODT) ODT tab 4 mgJump to med 4 mg, Oral, EVERY 6 HOURS PRN, nausea, vomiting, Starting on Thu03/18/23 at 1753, This is Step 1 of nausea and vomiting management. If nausea not resolved in 15 minutes, go to Step 2 prochlorperazine (COMPAZINE). Do not push through foil backing. Peel back foil and gently remove. Place on tongue immediately. Administration with liquid unnecessary With dry hands, peel back foil backing and gently remove tablet. Do not push oral disintegrating tablet through foil backing. Administer immediately on tongue and oral disintegrating tablet dissolves in seconds, then swallow with saliva. Liquid not required. Or ondansetron (ZOFRAN) injection 4 mgJump to med 4 mg, Intravenous, EVERY 6 HOURS PRN, nausea, vomiting, Administer over 2-5 Minutes, Starting on Thu03/18/23 at 1753, This is Step 1 of nausea and vomiting management. If nausea not resolved in 15 minutes, go to Step 2 prochlorperazine (COMPAZINE). Irritant. Group 7: ondansetron (ZOFRAN ODT) ODT tab 4 mg (CANCELED) 4 mg, Oral, EVERY 30 MIN PRN, nausea, Starting on Thu03/18/23 at 1430, For 2 doses, MAX total dose = 8 mg, including OR dosing. If not resolved in 15 minutes, then go to step 2 [prochlorperazine (COMPAZINE), if ordered]. With dry hands, peel back foil backing and gently remove tablet. Do not push oral disintegrating tablet through foil backing. Administer immediately on tongue and oral disintegrating tablet dissolves in seconds, then swallow with saliva. Liquid not required., PACU Or ondansetron (ZOFRAN) injection 4 mg (CANCELED)Jump to med 4 mg, Intravenous, EVERY 30 MIN PRN, nausea, Administer over 2-5 Minutes, Starting on Thu03/18/23 at 1430, For 2 doses, MAX total dose = 8 mg, including OR dosing. If not resolved in 15 minutes, then go to step 2 [prochlorperazine (COMPAZINE), if ordered]. Irritant., PACU Group 8: oxyCODONE (ROXICODONE) tablet 5 mgJump to med 5 mg, Oral, EVERY 3 HOURS PRN, other, moderate pain (pain rating 4-6), Starting on Thu03/18/23 at 1753, Hold oral PRN dose for analgesic side effects. Notify provider to assess for uncontrolled pain or analgesic side effects. Hold while on IV ARCHITECTURAL REPRESENTATIVE or with regular IV opioid dosing. Or oxyCODONE IR (ROXICODONE) tablet 10 mgJump to med 10 mg, Oral, EVERY 3 HOURS PRN, severe pain, (pain rating 7-10), Starting on Thu03/18/23 at 1753, Hold oral PRN dose for analgesic side effects. Notify provider to assess for uncontrolled pain or analgesic side effects. Hold while on IV ARCHITECTURAL REPRESENTATIVE or with regular IV opioid dosing. Group 9: prochlorperazine (COMPAZINE) injection 10 mgJump to med 10 mg, Intravenous, EVERY 6 HOURS PRN, nausea, vomiting, Administer over 1-2 Minutes, Starting on Thu03/18/23 at 1753, This is Step 2 of the nausea and vomiting management. Or prochlorperazine (COMPAZINE) tablet 10 mgJump to med 10 mg, Oral, EVERY 6 HOURS PRN, nausea, vomiting, Starting on Thu03/18/23 at 1753, This is Step 2 of the nausea and vomiting management. documented in this encounter Additional Health Concerns Problem Noted Date Diagnosed Date [facility] PATHWAY SURGERY IS SCHEDULED 10/15/2022 documented as of this encounter Care Teams Roofer Assistant Relationship Specialty Start Date End Date Kaykay Duarte COLD PATCHER [id number] [place] [address] PCP - General 10/15/22 Roderick Morelos MD [address] [place], [place] [address] Cardiovascular Disease 02/03/22 Magno Wood MD [address] [place] [address] [id number] Otolaryngology 02/21/22 Sophie Ocasio AuD [address] [place] [address] [phone] Lymphedema Therapist Audiology 02/21/22 Henny Rosales APRN SOFTWARE ENGINEERING PROJECT MANAGER [address] [place] [address] Assigned Heart and Vascular Provider 08/09/[address] [place] [address] [phone] Registered Dietitian Dietitian, Registered 09/02/22 Christiane Rodríguez MD [address] [place] [id number] Otolaryngology 11/12/22 Jing Cadena APRN MANUFACTURING WEAVER [address] [place] [id number] Clinical Nurse Specialist Anesthesiology 01/15/23 Radha Lopez, [facility] [address] [place] [address] [phone] Pharmacist Pharmacist 01/16/23 Luis A Escobedo MD [address] [id number] Assigned Surgical Provider 02/07/23 04/15/23 documented as of this encounter
--- OUTSIDE RECORDS SUMMARY | 2023-05-09 18:20 | XMS_ITS | Encounter Summary ---
Author Name Unknown Organization [place] Address [address] [place] [id number] Care Team Providers Care Chair Inspector Name Role Phone Roderick Morelos MD Unavailable [phone] Magno Wood MD Unavailable [phone] Sophie Ocasio AuD Unavailable [phone] ROUTE RETURNER BUILDING CONSTRUCTION ENGINEER Unavailable [phone] Unavailable Kaykay Duarte T RAIL TURNER Primary Care Provider [phone] Christiane Rodríguez MD Unavailable [phone] Jing Cadena ROUTE RETURNER PLATE COLORER Unavailable [phone] Radha Lopez [facility] Unavailable [phone] Luis A Escobedo MD Unavailable [phone] Reason for Visit * Reason Comments Nurse Visit Encounter Details Date Type Department Care Team (Latest Contact Info) Description 02/17/2023 8:00 AM CAFETERIA TEAM LEADER Virtual Visit [facility] [address] [address] Henny Arguello, RN S/P laparoscopic sleeve gastrectomy (Primary Dx); At high risk for postoperative complications Social History Tobacco Use Types Packs/Day Years [...] - Inhaled Oxygen Concentration - - Weight 132 kg (291 lb) 02/17/2023 7:35 AM CAFETERIA TEAM LEADER Height 167.6 cm (5' 6) 02/17/2023 7:35 AM CAFETERIA TEAM LEADER Body Mass Index 46.97 02/17/2023 7:35 AM CAFETERIA TEAM LEADER documented in this encounter Patient Instructions * Patient Instructions* Henny Arguello RN - 02/17/2023 8:00 AM CAFETERIA TEAM LEADER Billie Connolly, Below is a recap of our conversation regarding your upcoming Sleeve Gastrectomy on 03/18/23 at 7:30am with Dr. Tunde Escobedo. You should receive a call from the hospital surgery department 1-2 days before surgery confirming you surgery time and arrival time. You should arrive at the hospital 2 hours prior to your surgery time. SURGERY CANCELLATION If something occurs in which you need to cancel your surgery, please contact Edgar at [phone], as soon as possible. BEFORE SURGERY MEDICATIONS TO STOP BEFORE SURGERY ASPIRIN - stop 7 days before surgery. BLOOD THINNERS - Need a bridging plan with your prescribing provider. NSAIDS - stop 7 days before surgery and do not restart after surgery. CHRONIC NARCOTIC PAIN MEDICATION - need a plan with pain provider and surgeon. HERBAL SUPPLEMENTS - Stop 7 days before surgery. VITAMINS - Stop 7 days before surgery. ANTIOBESITY MEDICATIONS TO STOP BEFORE SURGERY TOPIRAMATE - take the day of surgery in the morning. NALTREXONE - Stop 4 days before surgery. Do not restart. CONTRAVE - Taper with 1 tablet twice a day for 1 week, then stop 4 days before surgery. Do not restart. QSYMIA (7.5 mg/46 mg) - Stop 7 days before surgery. If on a larger dose, will need a plan for tapering. Do not restart. PHENTERMINE - Stop 7 days before surgery. Do not restart. GLP-1 (Victoza, Saxenda) - Last dose the day before surgery. Do not restart. GLP-1 (Ozempic, Wegovy, Trulicity, Mounjaro) - Last dose no later than 1 week before surgery. Do not restart. METFORMIN - Last dose the day before surgery. Do not restart. MEDICATION REVIEW FIRST 4 WEEKS POSTOP - Medications should be liquid, chewable, crushed or pills smaller than 1/4 inch. AFTER 4 WEEKS - Take small pills or cut up larger pills to be smaller than 1/2 inch. Do not crush or open medications that are long acting or extended relief. Check with your prescribing provider to see if there is a different form or option. DAY BEFORE YOUR SURGERY Starting in the morning, follow a clear liquid diet. Stay away from red liquids and liquids with pulp. Ensure you are well hydrated all day! Strive for at least 64 ounces. Nothing after midnight except water! You may have sips of water up to 3 hours before your surgery. Take your medications as directed from the PAC clinic. You may have approved medications up to 3 hours before your surgery time. SHOWER You will take a shower the night before surgery and a shower the morning of surgery. Follow instructions for pre-op shower using the required soap (4% CHG, Hibiclens, Exidine, chlorhexidine). Let the soap sit on your skin for a minute and then rinse. After your evening shower, dry off with a clean towel, put on clean pajamas and get into a bed withclean sheets. After your morning shower, dry off with a clean towel and put on clean comfortable clothes. The soap can be very drying. Do not put any deodorant, lotion or powder on after your shower. TRANSPORTATION & POSTOP CARE You will need a class c truck driver to take you to the hospital the day of surgery. You will need a class c truck driver to pick you up from the hospital the day of discharge (usually the afternoon/evening the day after surgery). You will need someone to stay with you for the first couple of days after surgery. If you live greater than an hour from the hospital, you will need to stop every 50-60 minutes to get out of the car and walk around. DIRECTOR OF REHABILITATIVE SERVICES PRESCRIPTIONS FROM YOUR PHARMACY: Please plan to pick these up before surgery and have them at home for when you are discharged. Do not start taking them until after surgery. Do not bring them to the hospital with you! Prilosec (omeprazole) OR Alternative: This medication is for control of stomach acid. You will take this medication daily for the first three months after surgery. TO TAKE: Open the capsule and put the beads in applesauce. Take every morning. If you are currently on a medication for GERD or Reflux, you will just continue that medication. Levsin (hyoscyamine) or Alternative: This medication is to help control spasms/cramping in the stomach and intestines. Take one tablet every 4 hours as needed for cramping. It may be helpful to take in the morning before taking any other medications. Zofran (ondansetron) or Alternative: This medication is for nausea. To Take: Place one tablet on the tongue and let it dissolve. You can take this every 6 hours, as needed. Senna: This medication is a stool softener: Take as directed to help avoid constipation. It is important to take this medication if you are taking a narcotic pain medicine as the pain medication can be constipating. If you experience diarrhea, please stop taking the Senna. IN THE HOSPITAL Use your Incentive Spirometer Get up. You should be up walking at least 3 times (or more) each day while in the hospital. Trips to the bathroom are great but they are not a long enough distance. Ask for an abdominal binder for extra abdominal support. Wear your abdominal as needed, for comfort. Sip through your fluids! Frequent sips - about 1 tsp every couple of minutes. Drinking more than that at a time can contribute to pain and cramping. Ask for some medicine cups to take home to help you measure your fluids. Remember to take your abdominal binder and incentive spirometer home with you when you are discharged!! AFTER SURGERY REGULARLY SCHEDULED MEDICATIONS Depending on the size and number of medications you take, you may need to space/change the time youtake your medications, so you do not overfill your stomach. Make sure you follow-up with your primary provider to make medication changes needed. DIABETES: If you have diabetes, monitor your blood sugars more frequently after surgery. Your bloodsugars may normalize quickly. Please contact your prescribing provider if you need your medication adjusted. HIGH BLOOD PRESSURE: If you have high blood pressure, monitor your blood pressure after surgery. Your blood pressure may normalize quickly. Please contact your prescribing provider if you need your medication adjusted. POSTOPERATIVE MEDICATIONS Take your postop medications as prescribed. You can start a chewable Multivitamin when you get home. Do not start any additional vitamins untilyou meet with your provider and clinical applications manager to receive further instructions. PAIN CONTROL Your pain medication prescription at discharge is a different dosage and timing than what you were taking in the hospital! Follow the new directions.Take your pain medicine as needed, as directed. Start with the minimal amount prescribed and supplement with Tylenol or Extra Strength Tylenol. Take the minimal amount as directed for severe pain. The pain medicine can cause constipation. Do not drive while taking narcotic pain medication. For mild to moderate pain, you can take Tylenol or Extra Strength Tylenol per the bottle instructions. DO NOT TAKE NSAIDS: IBUPROFEN, ASPIRIN OR NAPROXEN. Change positions frequently. Walking around for 10-15 minutes once an hour will also help.ICE: Use an ice pack on the incisions for the first 24 - 48 hours: Use a barrier between the ice pack and theskin. Do not leave the ice on longer than 20 minutes at each time. HEAT: You may also try a heating pad on your abdomen to help soothe cramping. Use a barrier betweenthe heating pad and your skin. Do not leave on longer than 20 minutes at each time. Wear your abdominal binder as needed. You will need someone to stay with you for the first 1-2 days after surgery, especially if you are taking prescription pain medicine. Please share the information regarding fluid intake and activity with your caregiver so they can help support you in your efforts. No driving until you have been off narcotic pain medications for at least [address] Escobedo Patients: You will be following the Stage 2 (Full Liquid Diet) - upon discharge. Ensure you have a variety ofproper full liquids at home to support you in taking in the proper nutrition. Please refer to the Stage 2 - Full Liquid diet handout provided by the Manager Care Management. Stage 3 (Pureed) Diet Start Date: 04/01/23 Stage 4 (Soft Foods) Diet Start Date: 04/15/23 Stage 5 (Regular) Diet Start Date: 2/23/24 HYDRATION Your goal is 48 to 64 ounces each day (4-6 ounces each hour). This amount will help prevent dehydration. It is important to measure and keep a tally sheet of your intake for the first month after surgery.Keep your tally sheet next to you and giorgio each time you drink one ounce of fluid. You should trackyour fluids for the first month after surgery and if you are ill. All fluids count in your fluid intake! Keep a water bottle or thermal bottle by your bed. Drink a little before going to sleep, if you wake in the middle of the night, and in the morning before getting out of bed. Keep an eye on your urine. It is a good indicator of your hydration status. Your urine should be clear yellow or clear light yellow. You will learn about advancing to a pureed diet at your first postop Manager Care Management appointment. BOWELS/CONSTIPATION Movement is important to keep your bowels working. Get up and walk at least each hour while you areawake. It is not unusual to not have a bowel movement for a few days after surgery. You should be passing gas each day. Keep taking the SENNA until you have had a regular bowel movement and are off the narcotic pain medication. If you haven't had a bowel movement by the 4th day after surgery, take one dose of Miralax (according to package directions). Repeat dose if no results. If you still don't have any results, use a Fleet Enema. If still no results, call your provider's office. It is normal to have a little blood in your first couple of bowel movements. If the blood continues, please contact our office. If you are having gas pains and bloating, you can try Gas-X. BREATHING EXERCISES Use your incentive spirometer each hour while awake. Sitting up or standing, take 5 - 10 slow, deepbreaths each time, focusing on expanding your lungs. This should be done for the first couple of weeks after surgery. These exercises will help eliminate gases from your system (anesthesia and surgical). ACTIVITY & EXERCISE Get up and walk around each hour while you are awake - at least 10 minutes. Walking will help with circulation, bowel regulation and will help you feel better. Do not lift anything greater than 10-15 lb for the first 4 weeks. The only exercise you can start right after surgery is WALKING. Walking is good for the gut, the circulation and your breathing! Seated Exercises for Arms and Legs (can be done before or after surgery) [email or web address] Exercise Guidelines after Weight Loss Surgery (1st 4-6 weeks): [email or web address] Exercises after Weight Loss Surgery (strengthening, when no weightlifting restrictions - after 4-6 weeks) : [email or web address] WOUND CARE You will have steri-strips over your incision after surgery. They will fall off over the first 7-10days after surgery. If the steri strips fall off before your incisions are healed, replace them with a bandaid to pull the incision together. You may have bruising around your wounds. This is normal. It will go away on its own. The skin around your incisions may be a little red. This is normal, too. Showering: you may shower the day you get home unless your surgeon tells you differently. Wash gently around incisions with warm soapy water, rinse well, and gently pat dry. DO NOT wear tight clothing that rubs against your incisions while they heal. DO NOT soak in a bathtub, swimming pool, or hot tub until your incisions are healed completely, usually around 7-14 days. No tub baths or swimming until all incisions are healed. FLOOR FRAMER Track your fluid intake! Report total fluids, not just water intake. Reminders to set up follow up appointments. Notifications of frequently asked questions. Please use [employer] for any concerns regarding your health. FOLLOW-UP CALL You will receive a post-op phone call two to three days after surgery to check in and see how you are doing (If your surgery is on a Thursday, your phone call will be on the Thursday following your surgery). You can always send us a message via [employer] if you have any questions or concerns. CALL YOUR PROVIDER IF: You have more redness, pain, warmth, swelling, or bleeding around your incision. The wound is larger or deeper or looks dark or dried out. The drainage from your incision does not decrease in 3 to 5 days or increases. The drainage becomes thick, morales or yellow and has a bad smell (pus). Your temperature is above 100??F (37.7??C) for more than 4 hours. You have pain that your pain medicine is not helping. You have chest and/or belly pain. You have trouble breathing. You have a cough that does not go away. You cannot drink or eat. You have a fast heartbeat. You are dizzy or lightheaded. You are not passing gas and have not had a bowel movement after following instructions above. Your stools are loose, or you have diarrhea. You are vomiting after eating. Please let us know if you have any additional questions. Sincerely, Henny Arguello RN, BSN RN Data Center Consultant Bariatric Surgery and Comprehensive Weight Management Phone: TERIA TEAM LEADER documented in this encounter Progress Notes * Henny Arguello RN - 02/17/2023 8:00 AM CST PREOP NURSE VISIT This patient is having revision with creation of gastric bypass with Dr. Tunde Escobedo. The following handouts were reviewed with the patient: Before Your Surgery, Patient Checklist, Weight Loss Surgery Pre-operative Class, Preop Recommendations Quick Reference Guide, History and Physical, Medications to Avoid, Shower or Bathing Before Surgery, Bowel Preparation, Powerful Choices, and[place] [facility] Directive. Questions were addressed and understanding of content was verbalized. Contact information was provided. WEIGHT CHECK: Patient goal weight: 289 Weight today: 291 Surgery Date and Time: 03/18/23 at 7:30 AM Call [phone] Edgar Rothman to confirm surgery date. PAC Visit: 02/18/23 Call [phone] to schedule your pre-operative history and physical with our PAC clinic. PROBLEM LIST: Patient Active Problem List Diagnosis Wheezing Asthma exacerbation Hypothyroidism, unspecified type Viral pneumonitis Hypoxia 2019 novel coronavirus disease (COVID-19) Bloody stool Cervical high risk HPV (human papillomavirus) test positive Chronic low back pain Gastroesophageal reflux disease with esophagitis Hx of hemorrhoids Irregular heart beat Mild intermittent asthma without complication Mixed hyperlipidemia Moderate persistent asthma with acute exacerbation Class 3 severe obesity with serious comorbidity and body mass index (BMI) of 45.0 to 49.9 in adult,unspecified obesity type (H) OAB (overactive bladder) Panic attacks Pneumonia due to COVID-19 virus Restless legs syndrome Severe obstructive sleep apnea Tachycardia Type 2 diabetes mellitus without complication, without long-term current use of insulin (H) Acute bronchitis, unspecified organism Asthma with acute exacerbation, unspecified asthma severity, unspecified whether persistent Hyperglycemia S/P laparoscopic sleeve gastrectomy MEDICAL CONDITIONS REVIEW: Diabetic? No. Diabetics who are on medications instructed to monitor blood sugar levels closely after surgery andcontact prescribing provider if levels run low as they may need their medications adjusted. On high blood pressure medications? No. Patients on high blood pressure medications instructed to monitor blood pressure levels closely after surgery and contact prescribing provider if pressure are running low as they may need their medications adjusted. CURRENT MEDICATIONS: Current Outpatient Medications Medication Sig Dispense Refill albuterol (PROAIR HFA/PROVENTIL HFA/VENTOLIN HFA) 108 (90 Base) MCG/ACT inhaler Inhale 2 puffs intothe lungs every 6 hours as needed for shortness of breath / dyspnea or wheezing (Patient taking differently: Inhale 2 puffs into the lungs as needed for shortness of breath or wheezing) 18 g 0 albuterol (PROVENTIL) (2.5 MG/3ML) 0.083% neb solution Take 1 vial (2.5 mg) by nebulization every 4hours as needed for shortness of breath / dyspnea or wheezing (Patient taking differently: Take 2.5mg by nebulization as needed for shortness of breath or wheezing) 90 mL 1 atorvastatin (LIPITOR) 40 MG tablet Take 40 mg by mouth daily blood glucose (ACCU-CHEK GUIDE) test strip USE 1 STRIP TO TEST THREE TIMES A DAY. celecoxib (CELEBREX) 200 MG capsule TAKE ONE CAPSULE BY MOUTH TWICE A DAY NEEDED FOR PAIN Cyanocobalamin (B-12) [address] 1 tablet under the tongue daily 30 tablet 11 fluticasone (FLOVENT HFA) 110 MCG/ACT inhaler Inhale 2 puffs into the lungs 2 times daily as neededTakes only when sick gabapentin (NEURONTIN) 600 MG tablet Take 600 mg by mouth At Bedtime levonorgestrel (MIRENA) 52 MG (20 mcg/day) IUD 1 each by Intrauterine route levothyroxine (SYNTHROID/LEVOTHROID) 200 MCG tablet Take 200 mcg by mouth At Bedtime 90 tablet 0 omeprazole (PRILOSEC) [address] capsule Take 1 capsule (40 mg) by mouth 2 times daily 180 capsule 3 rOPINIRole (REQUIP) 2 MG tablet Take 2 mg by mouth 2 times daily Take in afternoon and at bedtime tirzepatide (MOUNJARO) 15 MG/0.5ML pen Inject 15 mg Subcutaneous every 7 days Patient currently taking opioid/narcotic pain medications? No. CURRENT ALLERGIES: Allergies Allergen Reactions Ibuprofen Other (See Comments) Gastric sleeve POSTOP MEDICATIONS: The following postop medications were sent to the patient's pharmacy. Patient was instructed to mushroom picker medications before surgery and to have them at home for discharge. HYSCYAMINE (LEVSIN), ODANSETRON (ZOFRAN), and SENNA (SENOKOT) - patient currently taking [id number] mg bid. LOGISITICS: Patient lives greater than 3 hours from hospital? No. If patient lives greater than 3 hours away, is patient planning on staying in the area after surgery? NA Patients instructed to take breaks each hour on car ride home. To be out of vehicle, stretch and walk for at least 10 minutes. To do ankle pump exercises in car. SUPPORT SYSTEM Parents and will be helping patient with postop care. PAPERWORK FMLA/Time OFF: Patient is anticipating taking 2 weeks off after surgery. Patient instructed to have paperwork faxed to [phone] at the attention of the surgeon. Bariatric Task List Fax: Please fax all paperwork to: [phone] - Status: Is patient a candidate for bariatric surgery?: patient is a candidate for bariatric surgery- Cleared to schedule surgeon consult?: cleared to schedule surgeon consult - Status: surgery evaluation in process - Surgeon: Dr Luis A Escobedo - Tentative surgery month/year: February 2023 - Insurance: Insurance: [employer] - Contact insurance to discuss coverage: Needed - Cigna: PCP Recommendation and Medical Clearance: - HP Referral: - Advanced beneficiary notification (ABN) for Medicare patients for RD visits and surgery: - Weight history: - Other: - Patient Info: Initial Weight: 309 - Date of Initial Weight/Height: - Goal Weight (lbs): 289 - Required Weight Loss: 20lb - Surgery Type: - Multidisciplinary Meeting: - Manager Care Management Visits: Structured weight loss required by insurance?: - Manager Care Management Visit 1: - Manager Care Management Visit 2: - Manager Care Management Visit 3: - Manager Care Management Visit 4: - Manager Care Management Visit 5: - Manager Care Management Visit 6: - Manager Care Management Visit additional: - Clearance from clinical applications manager to see surgeon?: - Manager Care Management Notes: - Psychological Evaluation: Psych eval: - Therapist letter of support: - Psychiatrist letter of support: - Establish care with therapist: - Complete eating disorder evaluation: - Letter of clearance from therapist/eating disorder program: - Other: - Lab Work: Complete Blood Count: - Comprehensive Metabolic Panel: - Vitamin D: - PTH: - Hgb A1c: Completed - Lipids: - TSH ([facility], [facility], [place] [facility]): - Ferritin: - Folate: - Testosterone, Total and Free: - Thiamine: - Vitamin A: - Vitamin B12: - Zinc: - C-peptide: - H. pylori: - MRSA (2 swabs, minimum 48 hours apart): - Nicotine Testing: - Recheck Vitamin D: - Other: - Consults/ Clearance Sleep Medicine: - Cardiac: - Pain: - Dental: - Endocrine: - Gastroenterology: - Vascular Medicine: - Hematology: - Medical Weight Management: - Physical Therapy/Exercise: - Nephrology: - Neurology: - Pulmonology: - Rheumatology: - Other: - Other: - Other: - Testing: UGI: - EGD: - Sleep Study: - Other: - Other: - PCP: Establish care with PCP: - Follow up with PCP: - PCP letter of support: - Health Maintenance: Colonoscopy(> 50 yrs or family hx): - Mammogram (> 40 yrs or family hx): - Pap Smear (women): - Other: - Other: - Stopping Smoking/ Alcohol Use/Cannabis Use: Quit tobacco use (3 months smoke free)?: - Quit date: - Quit alcohol use: - Quit date: - Other: - Quit date: - Patient Education: Information Session: - Attended New Consult Class?: - Given Making your decision handout?: - Given A Roadmap to you Weight Loss Surgery handout?: - Given [facility] Fws Faculty Assistant information?: - Attended support group?: - Support plan in place?: - Research consents signed?: - Avoid NSAIDS/ Alternate Plan for Pain: - Additional Surgery Requirements: Review Coag plan: - HgA1c <8: - Inpatient pain consult: - Final nicotine screen: - Dental work complete: - control plan: - Gallstone prevention plan (Actigall for 6 months postop): - Other: - Other: - Final Tasks: Before surgery online preop class: - After surgery online class: - Nurse visit for information: - Weight Check: - History and Physical: - - Final labs per clinic: - See MTM Pharmacist for medication review and plan for after surgery (if DM, transplant hx, greater than 10 meds): - Chest xray per clinic: - Electrocardiogram (ECG) per clinic: - Schedule postop appointments: - Other: - - Notes: - TERIA TEAM LEADER documented in this encounter Nursing Notes * Virginia Ramirez - 02/17/2023 8:00 AM CST Is the patient currently in the state of [place]? YES Visit mode:VIDEO If the visit is dropped, the patient can be reconnected by: VIDEO VISIT: Text to cell phone: Telephone Information: Will anyone else be joining the visit? NO (If patient encounters technical issues they should call [phone] :[phone]) How would you like to obtain your AVS? MyChart Are changes needed to the allergy or medication list? No, Pt stated no changes to allergies, and Ptstated no med changes Reason for visit: Nurse Visit Virginia Ramirez [facility] TERIA TEAM LEADER documented in this encounter Plan of Treatment Upcoming Encounters Date Type Department Care Team (Late st Contact Info) Description 06/24/2023 12:30 PM CDT Virtual Visit [facility] [address] [phone] Geri Loza PA-C [address] [place] [address] [phone] 06/24/2023 1:00 PM CDT Virtual Visit [facility] [address] [phone] Sharee Negron, RD [address] [place] [address] [phone] documented as of this encounter Goals Goal Patient Goal Type Associated Problems Recent Progress Patient-Stated? Author BRIAN PATHWAY SURGERY IS SCHEDULED Care Plan BRIAN PATHWAY SURGERY IS SCHEDULED No Luis A Escobedo MD documented as of this encounter Visit Diagnoses Diagnosis S/P laparoscopic sleeve gastrectomy- Primary At high risk for postoperative complications Other specified conditions influencing health status documented in this encounter Additional Health Concerns Problem Noted Date Diagnosed Date BRIAN PATHWAY SURGERY IS SCHEDULED 10/15/2022 documented as of this encounter Care Teams Chair Inspector Relationship Specialty Start Date End Date Kaykay Duarte, T RAIL TURNER [address] [place] [address] PCP - General 10/15/22 Rdoerick Morelos MD [address] [place], [place] [address] Cardiovascular Disease 02/03/22 Magno Wood MD [address] [place] [address] [phone] Otolaryngology 02/21/22 Sophie Ocasio AuD [address] [place] [address] [phone] Financial Services Agent Audiology 02/21/22 Henny Rosales, ROUTE RETURNER BUILDING CONSTRUCTION ENGINEER [address] [place] [phone] Assigned Heart and Vascular Provider 08/09/[address] [place] [address] [id number] Registered Dietitian Dietitian, Registered 09/02/22 Christiane Rodríguez MD [address] [facility] [address] [place], [place] [address] Otolaryngology 11/12/22 Jing Cadena, ROUTE RETURNER PLATE COLORER [address] [facility] [address] [place] [address] Clinical Nurse Specialist Anesthesiology 01/15/23 Radha Lopez, [facility] [address] [place], [place] [phone] Pharmacist Pharmacist 01/16/23 Luis A Escobedo MD [address] [facility] [address] [place], [place] [phone] Assigned Surgical Provider 02/07/23 04/15/23 documented as of this encounter
--- OUTSIDE RECORDS SUMMARY | 2023-05-09 18:20 | XMS_ITS | Encounter Summary ---
Author Name Unknown Organization [facility] [place] Address [address] [place] [id number] Care Team Providers Care Milling Machinist Name Role Phone Roderick Morelos MD Unavailable [phone] Magno Wood MD Unavailable [phone] Sophie Ocasio AuD Unavailable [phone] Henny Rosales SUPERVISOR PIT AND AUXILIARIES DETAIL TECHNICIAN Unavailable [phone] Unavailable Kaykay Duarte DATA PROCESSING CONTROL CLERK Primary Care Provider Christiane Rodríguez MD Unavailable [phone] Jing Cadena SUPERVISOR PIT AND AUXILIARIES HEALTHCARE APPLICATIONS ANALYST Unavailable Radha Lopez [facility] Unavailable [phone] Luis A Escobedo MD Unavailable [phone] Geri Loza PA-C Unavailable [phone] Encounter Details Date Type Department Care Team (Late Contact Info) Description 03/11/2023 MyC Medical Advice [facility] Social History Tobacco Use Types Packs/Day Years [...] 12:30 PM CDT Virtual Visit [facility] [address] [phone] Geri Loza PA-C [address] [place] [address] 06/24/2023 1:00 PM CDT Virtual Visit [facility] [address] [phone] Sharee Negron, RD [address] [place] [address] [phone] documented as of this encounter Goals Goal [...] documented as of this encounter Care Teams Milling Machinist Relationship Specialty [place] [address] [place] [address] [facility] [address] PCP - General 10/15/22 Roderick Morelos MD [address] [place] [address] Cardiovascular Disease 02/03/22 Magno Wood MD [address] [place] [address] [address] [place], [place] [phone] Otolaryngology 02/21/22 Sophie Ocasio AuD [address] [place] [address] [phone] Production Inspector Audiology 02/21/22 Henny Rosales, SUPERVISOR PIT AND AUXILIARIES DETAIL TECHNICIAN [address] [place] [phone] Assigned Heart and Vascular Provider 08/09/[address] [place] [address] [phone] Registered Dietitian Dietitian, Registered 09/02/22 Christiane Rodríguez MD [address] [place] [address] [address] [place], [place] [address] Otolaryngology 11/12/22 Jing Cadena, SUPERVISOR PIT AND AUXILIARIES HEALTHCARE APPLICATIONS ANALYST [address] [place] [address] [address] [place], [place] [address] Clinical Nurse Specialist Anesthesiology 01/15/23 Radha Lopez, [facility] [address] [place] [address] [phone] Pharmacist Pharmacist 01/16/23 Luis A Escobedo MD [address] [place] [address] [address] [place] [address] Assigned Surgical Provider 02/07/23 04/15/23 Geri Loza PA-C [address] [place] [address] [phone] Assigned Surgical Provider 04/16/23 documented as of this encounter
--- OUTSIDE RECORDS SUMMARY | 2023-05-09 18:20 | XMS_ITS | Encounter Summary ---
Author Name Unknown Organization [facility] Address [address] [place] [address] Care Team Providers Care Musical String Maker Name Role Phone Roderick Morelos MD Unavailable [phone] Magno Wood MD Unavailable [phone] Sophie Ocasio AuD Unavailable [phone] Henny Rosales CLIENT SUPPORT CONSULTANT ACID ETCH OPERATOR Unavailable [phone] Unavailable Kaykay Duarte DANCE PROFESSOR Primary Care Provider [phone] Christiane Rodríguez MD Unavailable [phone] Jing Cadena CLIENT SUPPORT CONSULTANT CASH PROCESSOR Unavailable [phone] [facility] Unavailable [phone] Luis A Escobedo MD Unavailable [phone] Reason for Visit * Auth/Cert (Routine) Specialty Diagnoses / Procedures Referred By Contac t Referred To Contact Surgery Diagnoses Morbid obesity (H) Morbid obesity (H) [E66.01] Procedures PA LAPAROSCOPIC GASTRIC RESTRICTIVE PX, W/GASTRIC BYPASS/ GRETCHEN-EN-Y, < 150CM PA LAPAROSCOPIC GASTRIC RESTRICTIVE PX, W/GASTRIC BYPASS/ GRETCHEN-EN-Y/SMALL INTESTINE RECONSTRUCT PA LAP, REPAIR PARAESOPHAGEAL HERNIA, INCL FUNDOPLASTY W/O MESH PA LAP, REPAIR PARAESOPHAGEAL HERNIA, INCL FUNDOPLASTY W/ MESH laparoscopic creation, conversion, gastroplasty, sleeve gastrectomy to gretchen-en-Y gastric bypass possible HERNIORRHAPHY, HIATAL, LAPAROSCOPIC [facility] [address] [place] [address] Referral ID Status Reason Start Date Expiration Date Visits Re quested Visits Authorized [id number] 1 1 Encounter Details Date Type Department Care Team (Late st Contact Info) Description 03/18/2023 11:43 AM ARRANGING FUNERAL DIRECTOR Anesthesia Event M [facility] PeriOp Services [address] [place] [address] Bobo Martínez MD [address] [place] [address] Caleb Clark APRN COAL SCREENER [address] [facility] [address] [place] [address] Anesthesia Record Procedure Summary Procedure Name Responsible Anesthesiologist Anesthesia Start Time Anesthesia Stop Time laparoscopic conversion sleeve gastrectomy to Gretchen-en-Y gastric bypass; upper endoscopy (Abdomen) Bobo Martínez MD 03/18/23 1143 03/18/23 1436 Events Date Time Event Comment 03/18/2023 1143 An Start 1143 AN REASSESS I attest that I have identified and re-evaluated the patient immediately before the induction of anesthesia and I am satisfied that the anesthetic plan is suitable for the patient's condition and procedure. The first vital signs recorded are pre- induction. Emerita Jacques APRN COAL SCREENER 1152 An Start Data 1159 An Induction 1200 An Intubation 1205 Anesthesia Ready for Procedu re 1421 AN Extubation All extubation criteria met prior to removal. 1428 an stop data 1436 An Stop Electronically signed by Caleb Clark APRN CRNA on March 18, 2023 2:36 PM Meds Name Total midazolam 1 mg/mL 2 mg fentaNYL 50 mcg/mL 100 mcg HYDROmorphone 1 mg/mL 1 mg propofol 10 mg/mL 200 mg rocuronium 10 mg/mL 80 mg succinylcholine 20 mg/mL 130 mg dexamethasone (DECADRON) 4 mg/mL 4 mg ondansetron 2 mg/mL 4 mg sugammadex (BRIDION) 200mg/2mL 200 mg ceFAZolin Sodium (ANCEF) injection 3 g 3 g famotidine (PEPCID) injection 20 mg 20 m g LR 900 mL * Agents Name NO HELIOX O2 N2O Air Exp Sevoflurane Exp Isoflurane Exp Desflurane Exp N2O O2 Delivery Device Ins Sevoflurane Ins Isoflurane Ins Desflurane O2 Auxiliary * Blood No blood administrations on file. Lines, Drains, and Airways Type Details Placement Removal Incision/Surgical Site 03/18/23; 1412; Abdomen; trocar site x 6; closed with dany and dressed with primapore 03/18/23 1412 by Juliocesar Pena, SKIP Peripheral IV 03/18/23; 1044; 18 G ; Right; Antecubital fossa; 1 03/18/23 1044 by Maria Del Carmen Rios RN 03/18/23 2243 by Oralia Morelos RN ETT Placement Date: 03/18/23; Placement Time: 1200 (created via procedure documentation); Mask Ventilation: 1; Induction Type: Intravenous; Ease of Intubation: Easy; Technique: Direct laryngoscopy; Tube Size: 7 mm; DL Blade Size: MAC 3; Grade View: 1; Adjucts: Stylet; Placement Person: COAL SCREENER; Attempts: 1 03/18/23 1200 by Emerita Jacques APRN COAL SCREENER 03/18/23 1421 by Caleb Clark APRN COAL SCREENER Peripheral IV 03/18/23; 1206; 18 G ; B Randolph; Right; Hand; Alcohol; 2 03/18/23 1206 by Emerita Jacques APRN COAL SCREENER 03/19/23 1147 by Ibis Key RN documented in this encounter Social History Tobacco [...] on file documented as of this encounter OR Notes * Anesthesia Postprocedure Evaluation - Jose Juan Mcdonald - 03/18/2023 4:58 PM CST Patient: Billie Connolly Procedure: Procedure(s): laparoscopic conversion sleeve gastrectomy to Gretchen-en-Y gastric bypass; upper endoscopy HERNIORRHAPHY, HIATAL, LAPAROSCOPIC Anesthesia Type: General Note: Disposition: Admission Postop Pain Control: Uneventful Sign Out: Well controlled pain PONV: No Neuro/Psych: Uneventful Sign Out: Acceptable/Baseline neuro status Airway/Respiratory: Uneventful Sign Out: Acceptable/Baseline resp. status CV/Hemodynamics: Uneventful Sign Out: Acceptable CV status; No obvious hypovolemia; No obvious fluid overload Other NRE: NONE DID A NON-ROUTINE EVENT OCCUR? No Last vitals: Vitals Value Taken Time BP 145/79 03/18/23 1645 Temp 36.4 ??C (97.6 ??F) 03/18/23 1430 Pulse 73 03/18/23 1657 Resp 16 03/18/23 1645 SpO2 95 % 03/18/23 1657 Vitals shown include unfiled device data. Electronically Signed By: Jose Juan Mcdonald March 18, 2023 4:58 PM NGING FUNERAL DIRECTOR * Anesthesia Procedure Notes - Emerita Jacques APRN CRNA - 03/18/2023 12:16 PM CSTAssociated Order(s): Airway Airway Patient location during procedure: OR Procedure Start/Stop Times: 03/18/2023 12:00 PM Staff - COAL SCREENER: Emerita Jacques APRN COAL SCREENER Performed By: COAL SCREENER Consent for Airway Urgency: elective Indications and Patient Condition Indications for airway management: ruslan-procedural Induction type:intravenous Mask difficulty assessment: 1 - vent by mask Final Airway Details Final airway type: endotracheal airway Successful airway: ETT - single and Oral Endotracheal Airway Details ETT size (mm): 7.0 Cuffed: yes Successful intubation technique: direct laryngoscopy DL Blade Type: MAC 3 Grade View of Cords: 1 Adjucts: stylet Position: Right Measured from: lips Secured at (cm): 22 Post intubation assessment Placement verified by: capnometry, equal breath sounds and chest rise Number of attempts at approach: 1 Secured with: pink tape Ease of procedure: easy Dentition: Unchanged and Intact Medication(s) Administered Medication Administration Time: 03/18/2023 12:00 PM NGING FUNERAL DIRECTOR * Anesthesia Preprocedure Evaluation - Faizan Moscoso MD - 03/18/2023 11:08 AM ARRANGING FUNERAL DIRECTOR Images from the original note were not included. Anesthesia Pre-Procedure Evaluation Patient: Billie Connolly : 1970 Procedure : Procedure(s): laparoscopic creation, conversion, gastroplasty, sleeve gastrectomy to gretchen-en-Y gastric bypass possible HERNIORRHAPHY, HIATAL, LAPAROSCOPIC Past Medical History: Diagnosis Date Asthma GERD (gastroesophageal reflux disease) Hypercholesterolemia Hypothyroidism Mitral valve disease mild-possibly due to phen-fen Morbid obesity Non-compliance missed meds, missed office visits MARVA (obstructive sleep apnea) does not use cpap Panic attacks PVC (premature ventricular contraction) Restless leg syndrome 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 Past Surgical History: Procedure Laterality Date EP ABLATION SVT N/A 04/09/2022 Procedure: Ablation Supraventricular Tachycardia; Surgeon: Roderick Morelos MD; Location: [facility] SUPERINTENDENT HORTICULTURE ESOPHAGOSCOPY, GASTROSCOPY, DUODENOSCOPY (EGD), COMBINED N/A 10/15/2022 Procedure: ESOPHAGOGASTRODUODENOSCOPY, WITH BIOPSY; Surgeon: Luis A Escobedo MD; Location: [facility] EX[facility]ISE PILONIDAL CYST, SIMPLE GASTRECTOMY LAPAROSCOPIC SLEEVE 07/2020 MASTOID SURGERY Right TONSILLECTOMY & ADENOIDECTOMY TYMPANOMASTOIDECTOMY Allergies Allergen Reactions Ibuprofen Other (See Comments) Gastric sleeve Social History Tobacco Use Smoking status: Never Passive exposure: Never Smokeless tobacco: Never Substance Use Topics Alcohol use: Not Currently Comment: socially Wt Readings from Last 1 Encounters: 03/18/23 130.9 kg (288 lb 9.3 oz) Anesthesia Evaluation Pt has had prior anesthetic. 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, no recurrence METS/Exercise Tolerance: 3 - Able to walk 1-2 blocks without stopping Hematologic: Musculoskeletal: GI/Hepatic: Comment: S/p sleeve gastrectomy 2020 c/b severe reflux (+) GERD, Symptomatic, Renal/Genitourinary: Endo: (+) type II DM (on Mounojaro, last dose 5 days ago), thyroid problem, hypothyroidism, Obesity, Psychiatric/Substance Use: Infectious Disease: Malignancy: Other: Physical Exam Airway Mallampati: II TM distance: > 3 FB Neck ROM: full Mouth opening: > 3 cm Respiratory Devices and Support Dental B=Bridge, C=Chipped, L=Loose, M=Missing Cardiovascular Pulmonary OUTSIDE LABS: CBC: Lab Results Component Value Date WBC 7.1 04/09/2022 WBC 9.5 01/12/2022 HGB 14.1 04/09/2022 HGB 14.5 01/12/2022 HCT 44.5 04/09/2022 HCT 48.0 (H) 01/12/2022 PLT 210 04/09/2022 PLT 251 01/12/2022 BMP: Lab Results Component Value Date NA 139 04/09/2022 NA 137 01/12/2022 POTASSIUM 4.0 04/09/2022 POTASSIUM 3.7 01/12/2022 CHLORIDE 105 10/23/2022 CHLORIDE 100 04/09/2022 CO2 28 04/09/2022 CO2 27 01/12/2022 BUN 12.3 04/09/2022 BUN 13.8 01/12/2022 CR 0.85 04/09/2022 CR 0.90 01/12/2022 GLC 100 (H) 03/18/2023 GLC 118 (H) 10/15/2022 COAGS: Lab Results Component Value Date PTT 33 03/19/2020 INR 1.03 03/24/2020 FIBR 409 03/24/2020 POC: Lab Results Component Value Date BGM 231 (H) 03/20/2020 HCG Negative 05/04/2012 HEPATIC: Lab Results Component Value Date ALBUMIN 4.2 10/29/2021 PROTTOTAL 7.3 10/29/2021 ALT 56 (H) 10/29/2021 AST 30 10/29/2021 ALKPHOS 154 (H) 10/29/2021 BILITOTAL 0.3 10/29/2021 OTHER: Lab Results Component Value Date LACT 1.0 03/19/2020 A1C 10.8 (H) 10/30/2021 PARKER 9.0 04/09/2022 MAG 1.7 03/19/2020 TSH 0.86 02/28/2021 T4 0.74 (L) 05/01/2018 CRP 2.5 (H) 03/24/2020 Anesthesia Plan ASA Status: 3 NPO Status: ELEVATED Aspiration Risk/Unknown Anesthesia Type: General. - Airway: ETT Induction: RSI. Techniques and Equipment: - Lines/Monitors: 2nd IV Consents Anesthesia Plan(s) and associated risks, benefits, and realistic alternatives discussed. Questions answered and patient/employee representative(s) expressed understanding. - Discussed: - Discussed with: Patient - Extended Intubation/Ventilatory Support Discussed: Yes. - Patient is DNR/DNI Status: No Use of blood products discussed: Yes. - Discussed with: Patient. - Consented: consented to blood products Postoperative Care Comments: Other Comments: Discussed last dose of Mounjaro with the patient and surgeon. Surgeon is deeming this surgery as urgent and considers proceeding with the surgery and aspiration risk to be acceptable. Discussed the mechanism of delayed gastric emptying with the patient and potential for a stomach that is not empty and the aspiration risk, in addition to the potential of prolonged intubation and ventilator needed postop given the last dose of Mounjaro 5 days ago instead of the 7 days we would have her hold the medication. The patient wishes to proceed with the surgery after discussing the risksof aspiration. I did allow her to ask questions about the risks. Dental documentation is based on patient self-reporting for any loose or chipped teeth. Any obviousvisual dental abnormalities seen in the airway exam is also documented. Additional risks of anesthesia was discussed with the patient, that include risk of sore throat andhoarse voice that should be temporary on the order of days, risk of oral mucosa injury (eg. lip andtongue) that may take about a week to resolve, and a very rare risk of dental injury requiring repair. Additional risks of anesthesia was discussed with the patient, including heart attack, stroke, blood clots, respiratory issues, and cardiac arrest. Patient was given opportunity to ask questions and express concerns, which were then all addressed. I discussed risks involving invasive lines including, bleeding, bruising, soft tissue injury including vascular and nerve, thrombus with arterial line placement, but we would avoid putting one in unless necessary. Faizan Moscoso MD I have reviewed the pertinent notes and labs in the chart from the past 30 days and (re)examined the patient. Any updates or changes from those notes are reflected in this note. # Severe Obesity: Estimated body mass index is 48.02 kg/m?? as calculated from the following: Height as of this encounter: 1.651 m (5' 5). Weight as of this encounter: 130.9 kg (288 lb 9.3 oz). NGING FUNERAL DIRECTOR documented in this encounter Miscellaneous Notes * Anesthesia Care Transfer Note - Caleb Clark APRN CRNA - 03/18/2023 2:36 PM CST Patient: Billie Connolly Procedure: Procedure(s): laparoscopic conversion sleeve gastrectomy to Gretchen-en-Y gastric bypass; upper endoscopy HERNIORRHAPHY, HIATAL, LAPAROSCOPIC Diagnosis: Morbid obesity (H) [E66.01] Diagnosis Additional Information: No value filed. Anesthesia Type: General Note: Oropharynx: oropharynx clear of all foreign objects and spontaneously breathing Level of Consciousness: drowsy Oxygen Supplementation: face mask Level of Supplemental Oxygen (L/min / FiO2): 6 Vital Signs Stable: post-procedure vital signs reviewed and stable Report to RN Given: handoff report given Patient transferred to: PACU Handoff Report: Identifed the Patient, Identified the Reponsible Provider, Reviewed the pertinent medical history, Discussed the surgical course, Reviewed Intra-OP anesthesia mangement and issues during anesthesia, Set expectations for post-procedure period and Allowed opportunity for questions andacknowledgement of understanding Vitals: Vitals Value Taken Time BP 149/85 03/18/23 1429 Temp Pulse 90 03/18/23 1435 Resp SpO2 94 % 03/18/23 1435 Vitals shown include unfiled device data. Electronically Signed By: Caleb Clark APRN CRNA March 18, 2023 2:36 PM NGING FUNERAL DIRECTOR documented in this encounter Plan of Treatment Upcoming Encounters Date Type Department Care Team (Late st Contact Info) Description 06/24/2023 12:30 PM CDT Virtual Visit [facility] [address] [phone] Geri Loza PA-C [address] [place] [address] [phone] 06/24/2023 1:00 PM CDT Virtual Visit [facility] [address] [address] MigdaliaSharee Jeremy, RD [address] [place] [address] documented as of this encounter Goals Goal Patient Goal Type Associated Problems Recent Progress Patient-Stated? Author BRIAN PATHWAY SURGERY IS SCHEDULED Care Plan [facility] PATHWAY SURGERY IS SCHEDULED No Luis A Escobedo MD documented as of this encounter Procedures Procedure Name Priority Date/Time Associated Diagnosis Comments ANE AIRWAY ETT PERFORMABLE Routine 03/18/2023 12:00 PM ARRANGING FUNERAL DIRECTOR documented in this encounter Results * ANE AIRWAY ETT PERFORMABLE (03/18/2023 12:00 PM ARRANGING FUNERAL DIRECTOR) Narrative Emerita Jacques APRN CRNA - 03/18/2023 12:00 PM ARRANGING FUNERAL DIRECTOR Emerita Jacques APRN CRNA ? 03/18/2023 12:16 PM Airway ? Patient location during procedure: OR ? Procedure Start/Stop Times: 03/18/2023 12:00 PM Staff - ? COAL SCREENER: Emerita Jacques APRN COAL SCREENER ? Performed By: COAL SCREENER Consent for Airway ? Urgency: elective Indications [...] Time: 03/18/2023 12:00 PM Faizan Moscoso MD PA ANESTHESIA documented in this encounter Visit Diagnoses Not on filedocumented in this encounter Administered Medications Inactive Administered Medications - up to 3 most recent administrations Medication Order MAR Action Action Date Dose Rate Site ceFAZolin Sodium (ANCEF) injection 3 g Routine, 3 g, Intravenous, PRE-OP/PRE-PROCEDURE, Starting on Thu03/18/23 at 0909, For 1 dose, Give first dose within 1 hour PRIOR to incision., Indications: Perioperative Pharmacoprophylaxis, Pre-procedure $Given 03/18/2023 12:05 PM ARRANGING FUNERAL DIRECTOR 3 g dexAMETHasone (DECADRON) injection Intravenous, PRN, Administer over 1 Minutes, Starting on Thu03/18/23 at 1208, Anesthesia Intra-op $Given 03/18/2023 12:08 PM ARRANGING FUNERAL DIRECTOR 4 mg famotidine (PEPCID) injection 20 mg 20 mg, Intravenous, Administer over 2 Minutes, SALES NEGOTIATOR TO O.R., Starting on Thu03/18/23 at 0909, For 1 dose, Give unless patient already took any of the following at home the morning of surgery: famotidine (PEPCID), ranitidine (ZANTAC), cimetidine (TAGAMET), nizatadine (AXID). For ordered IV doses 1-20 mg, give IV Push diluted with 5-10 mL NS over a minimum of 2 minutes., Pre-procedure $Given 03/18/2023 11:43 AM ARRANGING FUNERAL DIRECTOR 20 mg fentaNYL (PF) (SUBLIMAZE) injection Intravenous, PRN, Administer over 3-5 Minutes, Starting on Thu03/18/23 at 1159, Anesthesia Intra-op $Given 03/18/2023 12:21 PM ARRANGING FUNERAL DIRECTOR 50 mcg $Given 03/18/2023 11:59 AM ARRANGING FUNERAL DIRECTOR 50 mcg HYDROmorphone (DILAUDID) injection Intravenous, PRN, Starting on Thu03/18/23 at 1229, Anesthesia Intra-op $Given 03/18/2023 1:56 PM ARRANGING FUNERAL DIRECTOR 0.5 mg $Given 03/18/2023 12:29 PM ARRANGING FUNERAL DIRECTOR 0.5 mg lactated ringers infusion Intravenous, CONTINUOUS PRN, Anesthesia Intra-op, Starting on Thu03/18/23 at 1143, Until Thu03/18/23 at 1436 $New Bag 03/18/2023 11:43 AM ARRANGING FUNERAL DIRECTOR midazolam (VERSED) injection Intravenous, Administer over 2 Minutes, PRN, Starting on Thu03/18/23 at 1143, Anesthesia Intra-op $Given 03/18/2023 11:43 AM ARRANGING FUNERAL DIRECTOR 2 mg ondansetron (ZOFRAN) injection Intravenous, PRN, Administer over 2-5 Minutes, Starting on Thu03/18/23 at 1206, Anesthesia Intra-op $Given 03/18/2023 12:06 PM ARRANGING FUNERAL DIRECTOR 4 mg propofol (DIPRIVAN) injection 10 mg/mL vial Intravenous, PRN, Starting on Thu03/18/23 at 1159, Anesthesia Intra-op $Given 03/18/2023 11:59 AM ARRANGING FUNERAL DIRECTOR 200 m g rocuronium injection Intravenous, PRN, Starting on Thu03/18/23 at 1212, Anesthesia Intra-op $Given 03/18/2023 1:47 PM ARRANGING FUNERAL DIRECTOR 10 mg $Given 03/18/2023 12:50 PM ARRANGING FUNERAL DIRECTOR 20 mg $Given 03/18/2023 12:12 PM ARRANGING FUNERAL DIRECTOR 50 mg succinylcholine (ANECTINE) injection Intravenous, PRN, Starting on Thu03/18/23 at 1159, Anesthesia Intra-op $Given 03/18/2023 11:59 AM ARRANGING FUNERAL DIRECTOR 130 mg sugammadex (BRIDION) injection Intravenous, PRN, Starting on Thu03/18/23 at 1415, Anesthesia Intra-op $Given 03/18/2023 2:15 PM ARRANGING FUNERAL DIRECTOR 200 mg documented in this encounter Additional Health Concerns Problem Noted Date Diagnosed Date BRIAN PATHWAY SURGERY IS SCHEDULED 10/15/2022 documented as of this encounter Care Teams Musical String Maker Relationship Specialty [place] [address] [place] [address] PCP - General 10/15/22 Roderick Morelos MD [address] [place] [address] Cardiovascular Disease 02/03/22 Magno Wood MD [address] [place] [address] [phone] Otolaryngology 02/21/22 Sophie Ocasio AuD [address] [place] [address] [phone] Hospice Care Transitions Coordinator Audiology 02/21/22 Henny Rosales APRN ACID ETCH OPERATOR [address] [place] [phone] Assigned Heart and Vascular Provider 08/09/[address] [place] [address] [phone] Registered Dietitian Dietitian, Registered 09/02/22 Christiane Rodríguez MD [address] [place] [address] [phone] Otolaryngology 11/12/22 Jing Cadena APRN CASH PROCESSOR [address] [place] [address] [phone] Clinical Nurse Specialist Anesthesiology 01/15/23 [facility] [address] [place] [phone] Pharmacist Pharmacist 01/16/23 Luis A Escobedo MD [address] [place] [address] Assigned Surgical Provider 02/07/23 04/15/23 documented as of this encounter
--- OUTSIDE RECORDS SUMMARY | 2023-05-09 18:20 | XMS_ITS | Encounter Summary ---
Author Name Unknown Organization [facility] Address [address] [place] [address] Care Team Providers Care Human Geography Faculty Member Name Role Phone Roderick Morelos MD Unavailable [phone] Magno Wood MD Unavailable [phone] Sophie Ocasio AuD Unavailable Henny Rosales SNAKER TRACTOR DRIVER FOOD PORTER Unavailable Sharee Negron RD Unavailable Kaykay Duarte NOTCH GRINDER Primary Care Provider [phone] Christiane Rodríguez MD Unavailable Jing Cadena SNAKER TRACTOR DRIVER BEEHIVE KILN SUPERVISOR Unavailable Radha Lopez [facility] Unavailable [phone] Luis A Escobedo MD Unavailable Encounter Details Date Type Department Care Team (Late st Contact Info) Description 02/18/2023 PRE VISIT [facility] Preoperative Assessment Center [place] [address] [facility] [address] [place] [address] Jing Cadena APRN BEEHIVE KILN SUPERVISOR [address] [facility] [address] [place] [address] Social History Tobacco Use Types Packs/Day Years Used Date Smoking Tobacco: Never Passive Smoke Exposure: Never Smokeless Tobacco: Never Alcohol Use Standard Drinks/Week Comments Not Currently 0 (1 standard drink = 0.6 oz pur e alcohol) socially PHQ-2 Answer Date Recorded PHQ-2 Score 0 01/07/2023 Adolescent Education Answer Date Record ed Getting School Help Needed Not on file 12/19 Sex and Gender Information Value Date Recorded Sex Assigned at Not on file Gender Identity Not on file Sexual Orientation Not on file documented as of this encounter Miscellaneous Notes * Telephone Encounter - Jacquelyn Agudelo - 01/16/2023 9:34 AM CDT FUTURE VISIT INFORMATION SURGERY INFORMATION: Date: TBD- Gen surg RECORDS REQUESTED FROM: Primary Care Provider: Kaykay Duarte APRN, CNP - [facility] Pertinent Medical History: Irregular heart beat, tachycardia Most recent EKG+ Tracin08/08/22 Most recent ECHO: 06/28/18 Most recent PFT's: 02/20/22- [facility] documented in this encounter Plan of Treatment Upcoming Encounters Date Type Department Care Team (Late st Contact Info) Description 06/24/2023 12:30 PM CDT Virtual Visit [facility] [address] [phone] Geri Loza PA-C [address] [place] [address] [phone] 06/24/2023 1:00 PM CDT Virtual Visit [facility] [address] [address] Sharee Negron, ÁNGEL [address] [place] [address] [phone] documented as of this encounter Goals Goal [...] documented as of this encounter Care Teams Human Geography Faculty Member Relationship Specialty Start Date End Date Kaykay Duarte NOTCH GRINDER [address] [place] [address] PCP - General 10/15/22 oRderick Morelos MD [address] [place] [address] Cardiovascular Disease 02/03/22 Magno Wood MD [address] [place] [address] 279605 Otolaryngology 02/21/22 Sophie Ocasio AuD [address] [place] [address] [phone] Egg Gatherer Audiology 02/21/22 Henny Rosales APRN FOOD PORTER [address] [place] [phone] Assigned Heart and Vascular Provider 08/09/[address] [place] [address] [phone] Registered Dietitian Dietitian, Registered 09/02/22 Christiane Rodríguez MD [address] [place] [address] [phone] Otolaryngology 11/12/22 Jing Cadena APRN BEEHIVE KILN SUPERVISOR [address] [place] [address], [place] 489395 Clinical Nurse Specialist Anesthesiology 01/15/23 Radha Lopez [facility] [address] [place] [address] [phone] Pharmacist Pharmacist 01/16/23 Luis A Escobedo MD [address] [phone] Assigned Surgical Provider 02/07/23 04/15/23 documented as of this encounter
--- OUTSIDE RECORDS SUMMARY | 2023-05-09 18:20 | XMS_ITS | Encounter Summary ---
Author Name Unknown Organization [facility] Address [address] [place] [address] Care Team Providers Care Head Start Director Name Role Phone Roderick Morelos MD Unavailable [phone] Magno Wood MD Unavailable [phone] Sophie Ocasio AuD Unavailable [phone] Henny Rosales COLLECTION SUPERVISOR BUILDING CONSTRUCTION PROFESSOR Unavailable Sharee Negron RD Unavailable Kaykay Duarte CASING RUNNING MACHINE TENDER Primary Care Provider Christiane Rodríguez MD Unavailable [phone] Jing Cadena COLLECTION SUPERVISOR FINANCIAL BROKERS Unavailable Radha Lopez [facility] Unavailable [phone] Luis A Escobedo MD Unavailable [phone] Reason for Visit * Reason Comments Pre-Op Exam * Consultation (Routine) - Pending Review Specialty Diagnoses / Procedures Referred By Contac t Referred To Contact Diagnoses Morbid obesity (H) Luis A Escobedo MD [address] [facility] [address] [place] [address] [address] Phone: [phone] Referral ID Status Reason Start Date Expiration Date V isits Requested Visits Authorized [id number] Pending Review 01/14/2023 01/14/2024 1 1 Encounter Details Date Type Department Care Team (Late st Contact Info) Description 02/18/2023 10:00 AM GASFITTER Virtual Visit [facility] Preoperative Assessment [address] 5th [place] [phone] Luis A Escobedo MD [address] [facility] [address] [place], [place] [address] Jing Cadena APRN [employer] [address] [facility] [address] [place] [address] Preop examination (Primary Dx); S/P laparoscopic sleeve gastrectomy Anesthesia Record Procedure Summary Procedure Name Responsible Anesthesiologist Anesthesia Start Time Anesthesia Stop Time laparoscopic conversion sleeve gastrectomy to Cristina-en-Y gastric bypass; upper endoscopy (Abdomen) Bobo Martínez [...] recorded are pre- induction. Emerita Jacques APRN CHIEF ARCHITECT 1152 An Start Data 1159 An Induction 1200 An Intubation 1205 Anesthesia Ready for Procedu re 1421 AN Extubation All extubation criteria met prior to removal. 1428 an stop data 1436 An Stop Electronically signed by Caleb Clark APRN CHIEF ARCHITECT on March 18, 2023 2:36 PM Meds * Agents No agents on file. * Blood No blood administrations on file. Lines, Drains, and Airways Type Details Placement Removal Incision/Surgical Site 03/18/23; 1412; Abdomen; trocar site x 6; closed with dany and dressed with primapore 03/18/23 1412 by Juliocesar Pena, RN Peripheral IV 03/18/23; 1044; 18 G ; [...] Grade View: 1; Adjucts: Stylet; Placement Person: CHIEF ARCHITECT; Attempts: 1 03/18/23 1200 by Emerita Jacques APRN CHIEF ARCHITECT 03/18/23 1421 by Caleb Clark APRN CRNA Peripheral IV 03/18/23; 1206; 18 G ; B Randolph; Right; Hand; Alcohol; 2 03/18/23 1206 by Emerita Jacques APRN CRNA 03/19/23 1147 by Ibis Key RN documented [...] this encounter Patient Instructions * Patient Instructions* Nikky Babb RN - 02/18/2023 10:00 AM GASFITTER Preparing for Your Surgery Name: Billie Connolly : 1970 Today's Date: 02/18/2023 Arriving for surgery: Surgery date: 03-18-23 Arrival time: 8:10 am Please come to: [facility] [address] [address] The [facility] [place] Patient /Visitor Ramp is located at [address] [facility] [address] Patients and visitors who self-park will receive the reduced hospital parking rate. If the Patient /Visitor Ramp is full, please follow the signs to the weld inspector parking located at the main hospital entrance. Foot Worker parking is available ( 24 hours/ 7 days a week) Discounted parking pass options are available for patients and visitors. They can be purchased at the Tacatì desk at the [facility] hospital entrance. - Stop at the security desk and they will direct surgery patients to Registration, and then the [address] [place] [address] Surgery Waiting Room. [phone] 3C - If you are in need of directions, wheelchair or escort please stop at the Information/security desk in the lobby. What can I eat or drink? - Follow [facility] Management Clinic instructions for starting Clear Liquid diet. - You may have clear liquids until 12 midnight, the day of surgery. - Sips of water only from 12 midnight to 6:10 am, the day of surgery. - Nothing by mouth after 6:10 am, the day of surgery. Examples of clear liquids: Water Clear broth Juices (apple, white grape, white cranberry and cider) without pulp Noncarbonated, powder based beverages (lemonade and Armand-Aid) Sodas (Sprite, 7-Up, nani soila and seltzer) Coffee or tea (without milk or cream) Gatorade- no red - No Alcohol or cannabis products for at least 24 hours before surgery. Which medicines can I take? Hold Aspirin for 7 days before surgery. Hold Multivitamins for 7 days before surgery. Hold Supplements for 7 days before surgery. Hold Ibuprofen (Advil, Motrin) for 1 day before surgery--unless otherwise directed by surgeon. Hold Naproxen (Aleve) for 4 days before surgery. Acetaminophen (Tylenol) is okay to take if needed. Hold Tirzepatide (Mounjaro) for 7 days prior to surgery. Reported takes Mounjaro on Fridays. Hold Mounjaro on Monday, March 13, 2023. Hold Celecoxib (Celebrex) for 3 days prior to surgery. - DO NOT take these medications the day of surgery: Cyanocobalamin (Vitamin B-12) - PLEASE TAKE these medications the day of surgery: Ropinirole (Requip) Albuterol inhaler if needed Albuterol neb if needed Bring Albuterol inhaler to hospital. How do I prepare myself? - Please take 2 showers (one the night prior to surgery and one the morning of surgery) using Scrubcare or Hibiclens soap. Use this soap only from the neck to your toes. Leave the soap on your skin for one minute--then rinse thoroughly. You may use your own shampoo and conditioner. No other hair products. - Please remove all jewelry and body piercings. - No lotions, deodorants or fragrance. - No makeup or fingernail mauritanian. - Bring your ID and insurance card. If you use a CPAP machine, please bring the CPAP machine, tubing, and mask to hospital. -If you have a Deep Brain Stimulator, Spinal Cord Stimulator, or any Neuro Stimulator device---you must bring the remote control to the hospital. ALL PATIENTS GOING HOME THE SAME DAY OF SURGERY ARE REQUIRED TO HAVE A RESPONSIBLE ADULT TO DRIVE AND BE IN ATTENDANCE WITH THEM FOR 24 HOURS FOLLOWING SURGERY. Covid testing policy as of 02/25/2022 Your surgeon will notify and schedule you for a COVID test if one is needed before surgery--please direct any questions or COVID symptoms to your surgeon Questions or Concerns: - For any questions regarding the day of surgery or your hospital stay, please contact the Pre Admission Nursing Office at [phone]. - If you have health changes between today and your surgery, please call your surgeon. - For questions after surgery, please call your surgeons office. Current Visitor Guidelines You may have 2 visitors in the pre op area. Visiting hours: 8 a.m. to 8:30 p.m. You may have four visitors during your inpatient hospital stay. Patients confirmed or suspected to have symptoms of COVID 19 or flu: No visitors allowed for adult patients. Children (under age 18) can have 1 named visitor. People who are sick or showing symptoms of COVID 19 or flu: Are not allowed to visit patients--we can only make exceptions in special situations. Please follow these guidelines for your visit: Please maintain social distance Masking is optional--however at times you may be asked to wear a mask for the safety of yourself and others Clean your hands with alcohol hand barbed wire machine operator. Do this when you arrive at and leave the building andpatient room, And again after you touch your mask or anything in the room. Go directly to and from the room you are visiting. Stay in the patient???s room during your visit. Limit going to other places in the hospital as muchas possible Leave bags and jackets at home or in the car. For everyone???s health, please don???t come and go during your visit. That includes for smoking during your visit. ITTER documented in this encounter Progress Notes * Carolyn Aden LPN - 02/18/2023 10:00 AM CST Billie is a 52 year old who is being evaluated via a billable video visit. How would you like to obtain your AVS? MyChart Subjective Billie is a 52 year old, presenting for the following health issues: Pre-Op Exam (/) N Markie JAUREGUI ITTER documented in this encounter H&P Notes * Jing Cadena APRN CNS - 02/18/2023 10:00 AM CST Images from the original note were not included. Pre-Operative H & P CC: Preoperative exam to assess for increased cardiopulmonary risk while undergoing surgery and anesthesia. Date of Encounter: 02/18/2023 Primary Care Physician: Kyakay Duarte Reason for visit: Encounter Diagnoses Name Primary? Preop examination Yes S/P laparoscopic sleeve gastrectomy HPI Billie Connolly is a 52 year old female who presents for pre-operative H & P in preparation for Procedure Information Case: [id number] Date/Time: 03/18/23 1010 Procedures: laparoscopic creation, conversion, gastroplasty, sleeve gastrectomy to cristina-en-Y gastric bypass (Abdomen) possible HERNIORRHAPHY, HIATAL, LAPAROSCOPIC (Abdomen) Anesthesia type: General Diagnosis: Morbid obesity (H) [E66.01] Pre-op diagnosis: Morbid obesity (H) [E66.01] Location: OR OR Providers: Luis A Escobedo MD History is obtained from the patient and chart review Patient with history of morbid obesity s/p laparoscopic sleeve gastrectomy surgery at [facility] in 2020. Postoperatively she has had severe reflux and recurrent and stubborn obesity. She consulted with Dr. Escobedo who performed upper endoscopy 09/2022, which documented a large caliber sleeve(too large to allow volume control of food or hunger control) and no pathologic evidence of reflux.The patient desired improved weight loss and surgical options were discussed. A conversion of sleeve to gastric bypass was recommended Her history is otherwise significant for HLD, SVT s/p cardioversion and ablation in 04/09/2022, asthma, MARVA, DIABETES MELLITUS II, hypothyroidism, anxiety/panic, and RLS. She has continued to follow with Cardiology after ablation, last seen on 08/08/22 and was consideredstable. Hx of abnormal bleeding or anti-platelet use: Denies Menstrual history: No LMP recorded. (Menstrual status: IUD). 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 Past Surgical History Past Surgical History: Procedure Laterality Date EP ABLATION SVT N/A 04/09/2022 Procedure: Ablation Supraventricular Tachycardia; Surgeon: Roderick Morelos MD; Location: [facility] CARDIAC HEALTH PLAN ADVISOR ESOPHAGOSCOPY, GASTROSCOPY, DUODENOSCOPY (EGD), COMBINED N/A 10/15/2022 Procedure: ESOPHAGOGASTRODUODENOSCOPY, WITH BIOPSY; Surgeon: Luis A Escobedo MD; Location: [facility] PILONIDAL CYST, SIMPLE GASTRECTOMY LAPAROSCOPIC SLEEVE 07/2020 MASTOID SURGERY Right TONSILLECTOMY & ADENOIDECTOMY TYMPANOMASTOIDECTOMY Prior to Admission Medications Current Outpatient Medications Medication Sig Dispense Refill [...] Take 40 mg by mouth every evening celecoxib (CELEBREX) 200 MG capsule Take 200 mg by mouth as needed Cyanocobalamin (B-12) [address] 1 tablet under the tongue daily (Patient taking differently: Place 1 tablet under the tongue every morning) 30 tablet 11 gabapentin (NEURONTIN) 600 MG tablet Take 600 mg by mouth At Bedtime levonorgestrel (MIRENA) 52 MG (20 mcg/day) IUD 1 each by Intrauterine route levothyroxine (SYNTHROID/LEVOTHROID) 200 MCG tablet Take 225 mcg by mouth at bedtime 90 tablet 0 omeprazole (PRILOSEC) [address] capsule Take 1 capsule (40 mg) by mouth 2 times daily (Patient taking differently: Take 40 mg by mouth every evening) 180 capsule 3 rOPINIRole (REQUIP) 2 MG tablet Take 2 mg by mouth 2 times daily Take in afternoon and at bedtime tirzepatide (MOUNJARO) 15 MG/0.5ML pen Inject 15 mg Subcutaneous every 7 days Thursday blood glucose (ACCU-CHEK GUIDE) test strip USE 1 STRIP TO TEST THREE TIMES A DAY. hyoscyamine (LEVSIN) 0.125 MG tablet Take 1 tablet (125 mcg) by mouth every 4 hours as needed for cramping (Patient taking differently: Take 0.125 mg by mouth every 4 hours as needed for cramping Post-op) 30 tablet 1 ondansetron (ZOFRAN ODT) 4 MG ODT tab Take 1 tablet (4 mg) by mouth every 6 hours as needed for nausea (Patient taking differently: Take 4 mg by mouth every 6 hours as needed for nausea Post - op) 15tablet 0 senna-docusate (SENOKOT-S/PERICOLACE) 8.6-50 MG tablet Take 2 tablets by mouth daily as needed for constipation (While taking narcotic pain medications. Stop taking if having loose stools.) (Patient taking differently: Take 2 tablets by mouth daily as needed for constipation (While taking narcotic pain medications. Stop taking if having loose stools.) Post - op) 30 tablet 1 Allergies Allergies Allergen Reactions Ibuprofen Other (See Comments) Gastric sleeve Social History Social History Socioeconomic History Marital status: Spouse name: Not on file Number of children: Not on file Years of education: Not on file Highest education level: Not on file Occupational History Not on file Tobacco Use Smoking status: Never Passive exposure: Never Smokeless tobacco: Never Vaping Use Vaping Use: Never used Substance and Sexual Activity Alcohol use: Not Currently Comment: socially Drug use: No Sexual activity: Yes Partners: Male Other Topics Concern Not on file Social History Narrative Not on file Social Determinants of Health Financial Resource Strain: Not on file Food Insecurity: Not on file Transportation Needs: Not on file Physical Activity: Not on file Stress: Not on file Social Connections: Not on file Interpersonal Safety: Not on file Housing Stability: Not on file Family History Family History Problem Relation Age of Onset Breast Cancer Mother Heart Disease Father Hyperlipidemia Father Cerebrovascular Disease Father Deep Vein Thrombosis (DVT) Father Colon Cancer Paternal Grandfather Anesthesia Reaction No family hx of Review of Systems The complete review of systems is negative other than noted in the HPI or here. Anesthesia Evaluation Pt has had prior anesthetic. Type: General and MAC. History of anesthetic complications - motion sickness and . MARVA. ROS/MED HX ENT/Pulmonary: (+) sleep apnea, uses CPAP, Intermittent, asthma Last exacerbation: No recent use-only with URIs, Treatment: Inhaler prn and Nebulizer prn, (-) tobacco use and recent URI Neurologic: Comment: RLS (-) no seizures and no CVA Cardiovascular: Comment: History of symptomatic paroxysmal SVT along with history of symptomatic PVCs. 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 (+) Dyslipidemia - - - - - dysrhythmias, Other, Previous cardiac testing Echo: Date: 2018 Results: Stress Test: Date: Results: ECG Reviewed: Date: 08/08/22 Results: SR Cath: Date: Results: (-) taking anticoagulants/antiplatelets and DONOHUE METS/Exercise Tolerance: 3 - Able to walk 1-2 blocks without stopping Comment: Activity limited by hip pain, but able to walk 2 blocks without stopping, climb one flight of stairs, and walks through department stores Hematologic: (-) history of blood clots and history of blood transfusion Musculoskeletal: Comment: Hip pain (+) arthritis, GI/Hepatic: Comment: History lap sleeve gastrectomy 2020 (+) GERD, Asymptomatic on medication, Renal/Genitourinary: - neg Renal ROS Endo: (+) type II DM, Last HgA1c: 6.4, date: 12/23/22, Not using insulin, - not using insulin pump. thyroid problem, hypothyroidism, Obesity, Psychiatric/Substance Use: (+) psychiatric history anxiety (Panic) Infectious Disease: - neg infectious disease ROS Malignancy: - neg malignancy ROS Other: - neg other ROS Virtual visit - No vitals were obtained Physical Exam Constitutional: Awake, alert, no apparent distress, and appears stated age. HENT: Normocephalic Respiratory: No cough or obvious dyspnea. Neurologic: Oriented to name, place and time. Neuropsychiatric: Calm, cooperative. Normal affect. Prior Labs/Diagnostic Studies All labs and imaging personally reviewed OSH 10/23/22 Intact PTH 65 Ferritin 88 WBC 6.7 Hgb 14.2 Hematocrit 45.3 Platelets 226 Na 139 K 4.3 Cl 105 Cr 0.90 LFTs normal Glu 123 EKG 08/08/22 Sinus rhythm Echocardiogram: 2019 Interpretation Summary Technically very difficult study. Only limited views were obtained due to poor acoustic window. The patient refused IV contrast. Grossly normal biventricular size and function. Left ventricular ejection fraction of 60-65%. Valves were not adequately assessed on this study. No comparison study. CT abd/pelvis 06/21/22 1. No acute process in the abdomen or pelvis. 2. Post gastric sleeve. 3. Small hiatal hernia. 4. Hepatic steatosis. 5. Intrauterine device. 6. Moderate-sized fat-containing umbilical hernia. The patient's records and results personally reviewed by this provider. Outside records reviewed from: Care Everywhere Assessment Billie Connolly is a 52 year old female seen as a PAC referral for risk assessment and optimization for anesthesia. Plan/Recommendations Pt will be optimized for the proposed procedure. See below for details on the assessment, risk, andpreoperative recommendations NEUROLOGY - No history of TIA, CVA or seizure - RLS. Significant symptoms. Gabapentin and Requip at HS -Post Op delirium risk factors: High co-morbid index ENT - No current airway concerns. Will need to be reassessed day of surgery. Mallampati: Unable to assess TM: Unable to assess Two implants in process lower left side Anesthesia records available CARDIAC HLD. Atorvastatin at HS. History of symptomatic paroxysmal SVT along with history of symptomatic PVCs. 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 No other cardiac history or meds. Denies chest pain, irregular HR, ankle edema or DYSPNEA ON EXERTION. Activity limited by hip pain but able to walk some distance and climb a flight of stairs - METS (Metabolic Equivalents)~4 RCRI: 0.9% risk of serious cardiac events PULMONARY Mild persistent asthma, triggered by URI. No recent symptoms or use of inhaler or nebs. Denies cough or shortness of breath MARVA with CPAP but sometimes takes off at night. Encouraged her to use as regularly as possible leading up to surgery. - Tobacco History History Smoking Status Never Smokeless Tobacco Never GI: GERD, controlled by omeprazole taken at HS Motion sickness PONV Medium Risk Total Score: 2 1 AN PONV: Pt is Female 1 AN PONV: Patient is not a current smoker /RENAL - Baseline Creatinine 0.90 ENDOCRINE - BMI: Estimated body mass index is 46.97 kg/m?? as calculated from the following: Height as of 02/17/23: 1.676 m (5' 6). Weight as of 02/17/23: 132 kg (291 lb). Class 3 Obesity (BMI > 40) DIABETES MELLITUS II. Last A1C 6.4. On Mounjaro and will hold for 7 days prior to surgery. Hypothyroidism. Synthroid at HS TSH 0.02 HEME: VTE risk 1.8% Family history of DVT in father Denies personal history of DVT Denies history of blood transfusion Last Hgb: 14.2 MSK: Right hip pain Will hold Celebrex for 3 days prior to surgery PSYCH - Anxiety/panic No meds at this time Different anesthesia methods/types have been discussed with the patient, but they are aware that the final plan will be decided by the assigned anesthesia provider on the date of service. The patient is optimized for their procedure. AVS with information on surgery time/arrival time, meds and NPO status given by nursing staff. No further diagnostic testing indicated. Please refer to the physical examination documented by the anesthesiologist in the anesthesia record on the day of surgery. Video-Visit Details Type of service: Video Visit Provider received verbal consent for a Video Visit from the patient? Yes Video Start Time: 9:56am Video End Time: 10:04am Originating Location (pt. Location): Home Distant Location (provider location): Off-site Mode of Communication: Video Conference via [email or web address] On the day of service: Prep time: 15 minutes Visit time: 8 minutes Documentation time: 14 minutes Total time: 37 minutes GINA Garcia Preoperative Assessment Center [facility] ITTER documented in this encounter Plan of Treatment Upcoming Encounters Date Type Department Care Team (Late st Contact Info) Description 06/24/2023 12:30 PM CDT Virtual Visit [facility] [address] [phone] Geri Loza PA-C [address] [place] [address] [phone] 06/24/2023 1:00 PM CDT Virtual Visit [facility] Weight [facility] [address] [phone] Sharee Negron, RD [address] [place] [address] [phone] Scheduled Referrals Name Type Priority Associated Diagnoses Orde r Schedule PAC Visit Referral (For [facility] Only) Referral Routine Morbid obesity (H) Ordered: 01/14/2023 documented as of this encounter Goals Goal Patient Goal Type Associated Problems Recent Progress Patient-Stated? Author BRIAN PATHWAY SURGERY IS SCHEDULED Care Plan BRIAN PATHWAY SURGERY IS SCHEDULED No Luis A Escobedo MD documented as of this encounter Visit Diagnoses Diagnosis Preop examination- Primary Preoperative examination, unspecified S/P laparoscopic sleeve gastrectomy documented in this encounter Additional Health Concerns Problem Noted Date Diagnosed Date BRIAN PATHWAY SURGERY IS SCHEDULED 10/15/2022 documented as of this encounter Care Teams Head Start Director Relationship Specialty [place] [address] [address] PCP - General 10/15/22 Roderick Morelos MD [address] [place] [address] Cardiovascular Disease 02/03/22 Magno Wood MD [address] [place] [address] [phone] Otolaryngology 02/21/22 Sophie Ocasio AuD [address] [place] [address] [phone] Cold Press Operator Audiology 02/21/22 Henny Rosales APRN BUILDING CONSTRUCTION PROFESSOR [address] [place] [phone] Assigned Heart and Vascular Provider 08/09/[address] [place] [address] [phone] Registered Dietitian Dietitian, Registered 09/02/22 Christiane Rodríguez MD [address] [place] [address] [phone] Otolaryngology 11/12/22 Jing Cadena APRN [employer] [address] [place] [address] [phone] Clinical Nurse Specialist Anesthesiology 01/15/23 Radha Lopez, [facility] [address] [place] [phone] Pharmacist Pharmacist 01/16/23 Luis A Escobedo MD [address] [facility] [address] [place] [address] Assigned Surgical Provider 02/07/23 04/15/23 documented as of this encounter
--- OUTSIDE RECORDS SUMMARY | 2023-05-09 18:20 | XMS_ITS | Encounter Summary ---
Author Name Unknown Organization [place] Address [facility] [place] [address] Care Team Providers Care Transportation Aid Name Role Phone Roderick Morelos MD Unavailable Magno Wood MD Unavailable [phone] Sophie Ocasio AuD Unavailable Henny Rosales PICC NURSE CRUTCH MAKER Unavailable [phone] Unavailable Kaykay Duarte MANAGER REGIONAL SALES Primary Care Provider [phone] Christiane Rodríguez MD Unavailable [phone] Jing Cadena PICC NURSE SUPERINTENDENT PLANT PROTECTION Unavailable Radha Lopez [facility] Unavailable Luis A Escobedo MD Unavailable [phone] Geri Loza PA-C Unavailable Encounter Details Date Type Department Care Team (Late st Contact Info) Description 03/17/2023 MyC Medical Advice UR PREOP/PHASE II [address] [place] [address] Pearl Rocha, SKIP Social History Tobacco Use Types Packs/Day Years [...] Visit [facility] [address] [phone] Geri Loza PA-C [address] [place] [address] [phone] 06/24/2023 1:00 PM CDT Virtual Visit [facility] [address] [address] Sharee Negron, RD [address] [place] [address] [phone] documented as of this encounter Goals Goal [...] documented as of this encounter Care Teams Transportation Aid Relationship Specialty Start Date End Date Kaykay Duarte MANAGER REGIONAL SALES [address] [place] [address] PCP - General 10/15/22 Roderick Morelos MD [address] [place] [address] Cardiovascular Disease 02/03/22 Magno Wood MD 420 [facility] 396 [place], [place] 204385 Otolaryngology 02/21/22 Sophie Ocasio AuD 9 [place], [place] 277965 Magnetic Grinder Operator Audiology 02/21/22 Henny Rosales, PICC NURSE CRUTCH MAKER [address] [place] [address] Assigned Heart and Vascular Provider 08/09/[address] [place] [address] [phone] Registered Dietitian Dietitian, Registered 09/02/22 Christiane Rodríguez MD [address] [place] [address] 396 [place], [place] 298275 Otolaryngology 11/12/22 Jing Cadena, PICC NURSE SUPERINTENDENT PLANT PROTECTION [address] [place] [address] 450 [place], [place] 831975 Clinical Nurse Specialist Anesthesiology 01/15/23 Radha Lopez, [facility] [address] [place] [address] [phone] Pharmacist Pharmacist 01/16/23 Luis A Escobedo MD [address] [place] [address] 195 [place], [place] 553635 Assigned Surgical Provider 02/07/23 04/15/23 Geri Loza PA-C 9 [place] [address] Assigned Surgical Provider 04/16/23 documented as of this encounter
--- OUTSIDE RECORDS SUMMARY | 2023-05-09 18:20 | XMS_ITS | Encounter Summary ---
Author Name Unknown Organization [place] Address [address] [place] [address] Care Team Providers Care Planer Feeder Name Role Phone Roderick Morelos MD Unavailable Magno Wood MD Unavailable [phone] Sophie Ocasio AuD Unavailable [phone] Henny Rosales LAUNCH CHECK OUT STAPLE SHEAR OPERATOR Unavailable [phone] Unavailable Kaykay Duarte BODY RECALL INSTRUCTOR Primary Care Provider Christiane Rodríguez MD Unavailable [phone] Jing Cadena LAUNCH CHECK OUT OUTBOUND SALES SPECIALIST Unavailable Radha Lopez [facility] Unavailable [phone] Luis A Escobedo MD Unavailable [phone] Geri Loza PA-C Unavailable [phone] Encounter Details Date Type Department Care Team (Late Contact Info) Description 03/11/2023 [facility]C [facility] Social History Tobacco Use Types Packs/Day Years [...] Description 06/24/2023 12:30 PM CDT Virtual Visit [facility] [address] [phone] Geri Loza PA-C [address] [place] [address] 06/24/2023 1:00 PM CDT Virtual Visit [facility] [address] [address] Sharee Negron, RD [address] [place] [address] [phone] documented as of this encounter Goals Goal [...] documented as of this encounter Care Teams Planer Feeder Relationship Specialty [place] [address] [place] [address] [facility] [place] [address] PCP - General 10/15/22 Roderick Morelos MD [address] [place] [address] Cardiovascular Disease 02/03/22 Magno Wood MD [address] [place] [address] 396 [place], [place] 837385 Otolaryngology 02/21/22 Sophie Ocasio AuD [address] [place] [address] [phone] General Freight Agent Audiology 02/21/22 Henny Rosales, LAUNCH CHECK OUT STAPLE SHEAR OPERATOR [address] [place] [phone] Assigned Heart and Vascular Provider 08/09/[address] [place] [address] [phone] Registered Dietitian Dietitian, Registered 09/02/22 Christiane Rodríguez MD [address] [place] [address] [address] [place], [place] 631725 Otolaryngology 11/12/22 Jing Cadena, LAUNCH CHECK OUT OUTBOUND SALES SPECIALIST [address] [place] [address] 450 [place], [place] [phone] Clinical Nurse Specialist Anesthesiology 01/15/23 Radha Lopez, [facility] [address] [place] [address] [phone] Pharmacist Pharmacist 01/16/23 Luis A Escobedo MD [address] [place] [address] 195 [place] [address] Assigned Surgical Provider 02/07/23 04/15/23 Geri Loza PA-C [address] [place] [address] [phone] Assigned Surgical Provider 04/16/23 documented as of this encounter
--- OUTSIDE RECORDS SUMMARY | 2023-05-09 18:20 | XMS_ITS | Encounter Summary ---
Author Name Unknown Organization [place] Address [address] [place] [address] Care Team Providers Care Blood Bank Custodian Name Role Phone Roderick Morelos MD Unavailable [phone] Magno Wood MD Unavailable [phone] Sophie Ocasio AuD Unavailable [phone] Henny Rosales PORTABLE SAWMILL OPERATOR CHIMNEY SUPERVISOR BRICK Unavailable [phone] Unavailable Kaykay Duarte STRAND GALVANIZER Primary Care Provider [phone] Christiane Rodríguez MD Unavailable [phone] Jing Cadena PORTABLE SAWMILL OPERATOR PARK ATTENDANT Unavailable Radha Lopez [facility] Unavailable [phone] Luis A Escobedo MD Unavailable [phone] Geri Loza PA-C Unavailable [phone] Encounter Details Date Type Department Care Team (Late st Contact Info) Description 02/17/2023 [facility] Medical Advice [facility] [address] 4th [place] [address] Henny Arguello, RN Social History [...] Description 06/24/2023 12:30 PM CDT Virtual Visit [facility] [address] [phone] Geri Loza PA-C [address] [place] [address] 06/24/2023 1:00 PM CDT Virtual Visit [facility] [address] [address] Sharee Negron, RD [address] [place] [address] [phone] documented as of this encounter Goals Goal [...] documented as of this encounter Care Teams Blood Bank Custodian Relationship Specialty Start Date End Date Kaykay Duarte STRAND GALVANIZER [address] [place] [address] PCP - General 10/15/22 Roderick Morelos MD [address] [place] [address] Cardiovascular Disease 02/03/22 Magno Wood MD 420 [facility] 396 [place], [place] 003605 Otolaryngology 02/21/22 Sophie Ocasio AuD [address] [place], [place] 305745 Self Contained Behavior Unit Teacher Audiology 02/21/22 Henny Rosales, PORTABLE SAWMILL OPERATOR CHIMNEY SUPERVISOR BRICK [address] [place] [address] Assigned Heart and Vascular Provider 08/09/[address] [place] [address] [phone] Registered Dietitian Dietitian, Registered 09/02/22 Christiane Rodríguez MD 420 [facility] 396 [place], [place] 290415 Otolaryngology 11/12/22 Jing Cadena, PORTABLE SAWMILL OPERATOR PARK ATTENDANT 420 [facility] 450 [place], [place] 377715 Clinical Nurse Specialist Anesthesiology 01/15/23 Radha Lopez [facility] [address] [place] [address] [phone] Pharmacist Pharmacist 01/16/23 Luis A Escobedo MD 420 [facility] 195 [place], [place] 400375 Assigned Surgical Provider 02/07/23 04/15/23 Geri Loza PA-C 9[address] [place] [address] Assigned Surgical Provider 04/16/23 documented as of this encounter
--- OUTSIDE RECORDS SUMMARY | 2023-05-09 18:20 | XMS_ITS | Encounter Summary ---
Author Name Unknown Organization [employer] Address [address] [place] [address] Care Team Providers Care Social Media Assistant Name Role Phone Roderick Morelos MD Unavailable [phone] Magno Wood MD Unavailable [phone] Sophie Ocasio AuD Unavailable [phone] Henny Rosales TRAUMA DIRECTOR FISH NET STRINGER Unavailable Sharee Negron RD Unavailable Kaykay Duarte COVERAGE SPECIALIST RN Primary Care Provider Christiane Rodríguez MD Unavailable [phone] Jing Cadena TRAUMA DIRECTOR RUBBER ENGRAVER Unavailable Radha Lopez [facility] Unavailable Luis A Escobedo MD Unavailable [phone] Geri Loza PA-C Unavailable [phone] Encounter Details Date Type Department Care Team (Late st Contact Info) Description 02/18/2023 [place] Medical Advice [facility] [address] 5th [place] [address] Nikky Babb, RN Social History Tobacco Use Types Packs/Day [...] Description 06/24/2023 12:30 PM CDT Virtual Visit [facility] [address] [phone] Geri Loza PA-C [address] [place] [address] [phone] 06/24/2023 1:00 PM CDT Virtual Visit [facility] [address] [address] Sharee Negron, RD [address] [place] [address] [phone] documented as of this encounter Goals Goal [...] documented as of this encounter Care Teams Social Media Assistant Relationship Specialty Start Date [place] [address] [employer] [place] [address] PCP - General 10/15/22 Roderick Morelos MD [address] [place] [address] Cardiovascular Disease 02/03/22 Magno Wood MD 420 [facility] 396 [place], [place] 845095 Otolaryngology 02/21/22 Sophie Ocasio AuD [address] [place], [place] 152665 Manager Play Audiology 02/21/22 Henny Rosales, TRAUMA DIRECTOR FISH NET STRINGER [address] [place] [address] Assigned Heart and Vascular Provider 08/09/[address] [place] [address] [phone] Registered Dietitian Dietitian, Registered 09/02/22 Christiane Rodríguez MD 420 [facility] 396 [place], [place] 411775 Otolaryngology 11/12/22 Jing Cadena, TRAUMA DIRECTOR RUBBER ENGRAVER 420 [facility] 450 [place], [place] 10[address]35 Clinical Nurse Specialist Anesthesiology 01/15/23 Radha Lopez [facility] 9 [place], [place] 617385 Pharmacist Pharmacist 01/16/23 Luis A Escobedo MD 420 [facility] 195 [place] [address] Assigned Surgical Provider 02/07/23 04/15/23 Geri Loza PA-C [address] [place] [address] Assigned Surgical Provider 04/16/23 documented as of this encounter
--- OUTSIDE RECORDS SUMMARY | 2023-05-09 18:20 | XMS_ITS | Encounter Summary ---
Author Name Unknown Organization [facility] Address [address] [place] [address] Care Team Providers Care Physical Sciences Instructor Name Role Phone Roderick Morelos MD Unavailable [phone] Magno Wood MD Unavailable [phone] Sophie Ocasio AuD Unavailable [phone] Henny Rosales SEMICONDUCTOR PACKAGES TESTER MUD MILL TENDER Unavailable [phone] Unavailable Kaykay Duarte SERVICE DESK ASSOCIATE Primary Care Provider [phone] Christiane Rodríguez MD Unavailable [phone] Jing Cadena SEMICONDUCTOR PACKAGES TESTER HAZARDOUS WASTE REMOVER Unavailable [phone] [facility] [facility] Unavailable [phone] Luis A Escobedo MD Unavailable [phone] Reason for Visit * Auth/Cert (Routine) Specialty Diagnoses / Procedures Referred By Contac t Referred To Contact Surgery Diagnoses Morbid obesity (H) Morbid obesity (H) [E66.01] Procedures SD LAPAROSCOPIC GASTRIC RESTRICTIVE PX, W/GASTRIC BYPASS/ GRETCHEN-EN-Y, < 150CM SD LAPAROSCOPIC GASTRIC RESTRICTIVE PX, W/GASTRIC BYPASS/ GRETCHEN-EN-Y/SMALL INTESTINE RECONSTRUCT SD LAP, REPAIR PARAESOPHAGEAL HERNIA, INCL FUNDOPLASTY W/O MESH SD LAP, REPAIR PARAESOPHAGEAL HERNIA, INCL FUNDOPLASTY W/ MESH laparoscopic creation, conversion, gastroplasty, sleeve gastrectomy to gretchen-en-Y gastric bypass possible HERNIORRHAPHY, HIATAL, LAPAROSCOPIC [facility] [address] [place] [address] Referral ID Status Reason Start Date Expiration Date Visits Re quested Visits Authorized [id number] 1 1 Encounter Details Date Type Department Care Team (Latest Contact Info) Description 03/18/2023 8:33 AM CLAMP TRUCK DRIVER - 03/19/2023 1:35 PM CLAMP TRUCK DRIVER Hospital Encounter [facility] [address] [employer] [address] [place] [address] Luis A Escobedo MD [address] [place] [address] [address] [place] [address] Acute post-operative pain (Primary Dx); Morbid obesity (H); S/P laparoscopic sleeve gastrectomy Discharge Disposition: Home or Self Care Social History Tobacco Use Types Packs/Day Years [...] Sign Reading Time Taken Comments Blood Pressure 119/70 03/19/2023 7:19 AM CLAMP TRUCK DRIVER Pulse 52 03/19/2023 7:19 AM CLAMP TRUCK DRIVER Temperature 36.9 ??C (98.4 ??F) 03/19/2023 7:19 AM CS T Respiratory Rate 15 03/19/2023 7:19 AM CLAMP TRUCK DRIVER Oxygen Saturation 96% 03/19/2023 8:39 AM CLAMP TRUCK DRIVER Inhaled Oxygen Concentration - - Weight 130.9 kg (288 lb 9.3 oz) 03/18/2023 9:25 AM CLAMP TRUCK DRIVER Height 165.1 cm (5' 5) 03/18/2023 9:25 AM CLAMP TRUCK DRIVER Body Mass Index 48.02 03/18/2023 9:25 AM CLAMP TRUCK DRIVER documented in this encounter Discharge Summaries * Luis A Escobedo MD - 03/19/2023 12:00 PM CST Images from the original note were not included. [facility] MIS Discharge Summary Date of Admission: 03/18/2023 Date [...] tirzepatide 15 MG/0.5ML pen Commonly known as: VIELKA Dose: 15 mg Inject 15 mg Subcutaneous [...] your medicines These medications were sent to [facility] Discharge - [place], [place] - [address] [facility] [address] [facility] [address] acetaminophen 325 MG tablet B-12 500 MCG [...] Instructions Comments: After Bariatric Surgery Discharge Instructions [facility] Comprehensive Weight Management Note: Ask [...] still healing. We will prescribe an acid director of digital marketing or antacid. Take it as directed. This will help prevent ulcers, heartburn and acid reflux. If you took an acid director of digital marketing before you had surgery, your care team will let you know what acid director of digital marketing you will take after surgery. It is [...] -Headache Call the clinic ANY TIME at [phone] if: -Your pain medicine is not working. [...] concerns. AFTER HOURS QUESTIONS OR CONCERNS: Call [phone] and ask to speak with surgery resident [...] appointment was not already made, please call: [phone] Appointments located at [facility] clinic: [facility] ([facility] [address] [facility] [address] [place] [address] Comments: Do NOT drive until after you have been completely off narcotics for a minimum of 24 hours. Follow-up Care - Bariatric Surgeon Comments: Follow-up with your bariatric surgeon in 2 weeks. Call your surgeon's office with any questions or concerns. Follow-up Care - Mechanical Press Operator Comments: Follow-up with your bariatric dietitian in [...] 1-2 week(s) after discharge. BARIATRIC PATIENTS: Call [phone] to schedule or to reach your care team GENERAL SURGERY PATIENTS: Call [phone] for scheduling needs or to reach your care team P TRUCK DRIVER documented in this encounter Medications at Time [...] Key RN - 03/19/2023 1:15 PM CST [place] [facility] DISCHARGE NOTE Patient discharged to home at 1:15 PM via wheel chair. Accompanied by partner and staff. Discharge instructions reviewed with patient and spouse, opportunity offered to ask questions. Prescriptions sent with patient to fill. All belongings sent with patient. Sharif removed from port sites. Ibis Key RN P TRUCK DRIVER * Disha Guthrie MD - 03/19/2023 7:37 [...] GB and hiatal herniarepair 03/18/[address] Escobedo Bariatric clears PO pain meds with IV for breakthrough, attempt to wean prior to discharge Omeprazole Levsin Lovenox Ambulate Dispo: Home later today vs tomorrow Dori Jerri Surgery Resident [id number] P TRUCK DRIVER documented in this encounter Miscellaneous Notes * [...] while asleep, continue with plan of care P TRUCK DRIVER * Plan of Care - Melody Barksdale [...] po oxy to try and help pain. P TRUCK DRIVER * Pharmacy-Consult Note - FABRICIO SUNSHINE - [...] to follow as new medications are ordered. P TRUCK DRIVER * Pharmacy-Admission Medication History - Christina Lucas [facility] - 03/18/2023 7:33 PM CST Pharmacist Admission [...] any home supply left. Changes made to BILINGUAL KINDERGARTEN TEACHER medication list: Added: None Deleted: None Changed: Omeprazole was changed from BID to QPM, per patient report. Allergies reviewed with patient and updates made in EHR: yes Medication History Completed By: Christina Lucas, PharmD BILINGUAL KINDERGARTEN TEACHER Med List Medication Sig Last Dose albuterol [...] in afternoon and at bedtime 03/17/2023 at senna-docusate (SENOKOT-S/PERICOLACE) 8.6-50 MG tablet Take 2 tablets by mouth daily as needed for constipation (While taking narcotic pain medications. Stop taking if having loose stools.) (Patient taking differently: Take 2 tablets by mouth daily as needed for constipation (While taking narcotic pain medications. Stop taking if having loose stools.) Post - op) not started at n/a P TRUCK DRIVER * Brief Op Note - Disha Guthrie MD - 03/18/2023 2:21 [address] [facility] Brief Operative Note Pre-operative diagnosis: Morbid obesity [...] * No implants in log * Dori Jerri Surgery Resident [id number] P TRUCK DRIVER * Op Note - Luis A Escobedo MD - 03/18/2023 12:[address] [facility] Operative Note Pre-operative diagnosis: Morbid obesity (H) [...] was marched 40 cm distally, and a Octaviano drain was looped around the bowel at [...] Gretchen limb from distal biliopancreatic limb. The Venice drain was passed off the operative field, and the mesenteric defect was elongated using traction. The gastrojejunostomy was completed as follows. A 40 Fr Qerrd0V tube was passed transorally into the Gretchen limb, and the enterotomy was oversewn in 2 layers using 3-0 polysorb for the internal layer starting posteriorly as a running stitch and transitioning anteriorly to Dolphin and 2-0 polysorb suture as a buttressing anterior layer. The Nuvug6P tube was replaced with gastroscope and a [...] this case. Luis A Escobedo MD Surgery [phone] (hospital screen printing machine operator helper) [phone] (clinic nurses) P TRUCK DRIVER documented in this encounter Plan of Treatment Upcoming Encounters Date Type Department Care Team (Late st Contact Info) Description 06/24/2023 12:30 PM CDT Virtual Visit [facility] Weight Management [address] [address] Geri Loza PA-C [address] [place] [phone] 06/24/2023 1:00 PM CDT Virtual Visit [facility] Weight Management [address] [phone] Sharee Negron, RD [address] [place] [phone] Scheduled Orders Name Type Priority Associated Diagnoses [...] BY METER Routine 03/19/2023 12:0 5 PM CLAMP TRUCK DRIVER PLATELET COUNT STAT 03/19/2023 7:37 AM CLAMP TRUCK DRIVER GLUCOSE BY METER Routine 03/19/2023 7:24 AM CLAMP TRUCK DRIVER GLUCOSE BY METER Routine 03/19/2023 2:52 AM CLAMP TRUCK DRIVER GLUCOSE BY METER Routine 03/18/2023 10:2 7 PM CLAMP TRUCK DRIVER GLUCOSE BY METER Routine 03/18/2023 7:32 PM CLAMP TRUCK DRIVER CREATININE Routine 03/18/2023 6:21 PM CLAMP TRUCK DRIVER GLUCOSE BY METER Routine 03/18/2023 4:46 PM CLAMP TRUCK DRIVER GLUCOSE BY METER Routine 03/18/2023 2:42 PM CLAMP TRUCK DRIVER HERNIORRHAPHY, HIATAL, LAPAROSCOPIC 03/18/2023 11:51 AM CLAMP TRUCK DRIVER Morbid obesity (H) Special Needs Estimated body mass index is 47.05 kg/m?? as calculated from the following:Height as of 01/29/23: 1.676 m (5' 6).Weight as of 01/29/23: 132.2 kg (291 lb 8 oz). PAC 60-50-79Yegiectc CREATION, GASTRIC BYPASS, LAPAROSCOPIC 03/18/2023 11:51 AM CLAMP TRUCK DRIVER Morbid obesity (H) Special Needs Estimated body mass index is 47.05 kg/m?? as calculated from the following:Height as of 01/29/23: 1.676 m (5' 6).Weight as of 01/29/23: 132.2 kg (291 lb 8 oz). PAC 26-51-96Orpnpbdx TYPE AND SCREEN, ADULT STAT 03/18/2023 10:38 AM CLAMP TRUCK DRIVER ABO/RH TYPE AND SCREEN STAT 03/18/2023 10:38 AM CLAMP TRUCK DRIVER GLUCOSE BY METER Routine 03/18/2023 9:22 AM CLAMP TRUCK DRIVER documented in this encounter Results * Glucose by meter (03/19/2023 12:05 PM CLAMP TRUCK DRIVER) GLUCOSE BY METER POCT 91 70 - 99 mg/dL 03/19/2023 12:12 PM CLAMP TRUCK DRIVER [facility] Blood, Capillary BLOOD SPECIMEN / Unknown 03/19/2023 12:05 PM CLAMP TRUCK DRIVER 03/19/2023 12:12 PM CLAMP TRUCK DRIVER Luis A FISH - JERED POCT [facility] [employer] Core Lab [address] [facility], [address] [place] [address], [facility] [phone] * Platelet count (03/19/2023 7:37 AM CLAMP TRUCK DRIVER) Platelet Count 237 150 - 450 10e3/uL 03/19/2023 7:54 AM CLAMP TRUCK DRIVER [facility] Blood STRUCTURE OF LEFT UPPER LIMB / Unknown Venipuncture / Unknown 03/19/2023 7:37 AM CLAMP TRUCK DRIVER 03/19/2023 7:47 AM CLAMP TRUCK DRIVER Luis A Escobedo MD LAB - BLOOD ORDER HUGH Performing Organization Address City/[facility]/ZIP Co de Phone Number [facility] [employer] [facility] [address] [facility], [address] [place] [address], [place] [phone] * (ABNORMAL) Glucose by meter (03/19/2023 7:24 AM CLAMP TRUCK DRIVER) GLUCOSE BY METER POCT 120(H) 70 - 99 mg/dL 03/19/2023 7:32 AM CLAMP TRUCK DRIVER [facility] Blood, Capillary BLOOD SPECIMEN / Unknown 03/19/2023 7:24 AM CLAMP TRUCK DRIVER 03/19/2023 7:32 AM CLAMP TRUCK DRIVER Luis A FISH - JERED POCT [facility] [employer] [facility] [address] [facility], [address] [place] [address], [place] [phone] * (ABNORMAL) Glucose by meter (03/19/2023 2:52 AM CLAMP TRUCK DRIVER) GLUCOSE BY METER POCT 124(H) 70 - 99 mg/dL 03/19/2023 3:16 AM CLAMP TRUCK DRIVER [facility] Blood, Capillary BLOOD SPECIMEN / Unknown 03/19/2023 2:52 AM CLAMP TRUCK DRIVER 03/19/2023 3:16 AM CLAMP TRUCK DRIVER Luis A LAWTON POCT [facility] [employer] [facility] [address] [facility], [address] [place] [phone], [facility] [phone] * (ABNORMAL) Glucose by meter (03/18/2023 10:27 PM CLAMP TRUCK DRIVER) GLUCOSE BY METER POCT 143(H) 70 - 99 mg/dL 03/18/2023 10:33 PM CLAMP TRUCK DRIVER [facility] Blood, Capillary BLOOD SPECIMEN / Unknown 03/18/2023 10:27 PM CLAMP TRUCK DRIVER 03/18/2023 10:33 PM CLAMP TRUCK DRIVER Luis A LAWTON POCT [facility] P[facility] Lab [address] [facility], [address] [place] [phone], [facility] [phone] * (ABNORMAL) Glucose by meter (03/18/2023 7:32 PM CLAMP TRUCK DRIVER) GLUCOSE BY METER POCT 145(H) 70 - 99 mg/dL 03/18/2023 7:39 PM CLAMP TRUCK DRIVER [facility] Blood, Capillary BLOOD SPECIMEN / Unknown 03/18/2023 7:32 PM CLAMP TRUCK DRIVER 03/18/2023 7:39 PM CLAMP TRUCK DRIVER Luis A LAWTON POCT [facility] [employer] [facility] [address] [facility], [address] [place] [phone], [facility] [phone] * Creatinine (03/18/2023 6:21 PM CLAMP TRUCK DRIVER) Creatinine 0.76 0.51 - 0.95 mg/dL 03/18/2023 7:05 PM CLAMP TRUCK DRIVER [facility] GFR Estimate >90 >60 mL/min/1.73 m2 03/18/2023 7:05 PM CLAMP TRUCK DRIVER [facility] Blood STRUCTURE OF LEFT HAND / Unknown Venipuncture / Unknown 03/18/2023 6:21 PM CLAMP TRUCK DRIVER 03/18/2023 6:32 PM CLAMP TRUCK DRIVER Disha Guthrie MD LAB - BLOOD O RDERABLES [facility] Core Lab [address] [facility], [address] [place] [phone], [facility] [phone] * (ABNORMAL) Glucose by meter (03/18/2023 4:46 PM CLAMP TRUCK DRIVER) GLUCOSE BY METER POCT 137(H) 70 - 99 mg/dL 03/18/2023 4:53 PM CLAMP TRUCK DRIVER [facility] P[facility] Blood, Capillary BLOOD SPECIMEN / Unknown 03/18/2023 4:46 PM CLAMP TRUCK DRIVER 03/18/2023 4:53 PM CLAMP TRUCK DRIVER Luis A Escobedo MD LAB - RadialpointAKER POCT [facility] P[facility] Core Lab [address] [facility], [address] [place] [phone], [facility] [phone] * (ABNORMAL) Glucose by meter (03/18/2023 2:42 PM CLAMP TRUCK DRIVER) GLUCOSE BY METER POCT 186(H) 70 - 99 mg/dL 03/18/2023 2:48 PM CLAMP TRUCK DRIVER [facility] Blood, Capillary BLOOD SPECIMEN / Unknown 03/18/2023 2:42 PM CLAMP TRUCK DRIVER 03/18/2023 2:48 PM CLAMP TRUCK DRIVER Luis A Escobedo MD LAB - BEAKER POCT [facility] [employer] [facility] Lab [address] [facility] [address] [facility], [address] [place] [address], [facility] [phone] * Adult Type and Screen (03/18/2023 10:38 AM CLAMP TRUCK DRIVER) ABO/RH(D) O POS 03/18/2023 10:02 AM CLAMP TRUCK DRIVER [facility] Antibody Screen Negative Negative 03/18/2023 10:02 AM CLAMP TRUCK DRIVER [facility] SPECIMEN EXPIRATION DATE [id number] 03/18/2023 10:02 AM CLAMP TRUCK DRIVER [facility] Blood STRUCTURE OF LEFT HAND / Unknown Venipuncture / Unknown 03/18/2023 10:38 AM CLAMP TRUCK DRIVER 03/18/2023 10:55 AM CLAMP TRUCK DRIVER Luis A Escobedo MD LAB - BLOOD BANK TEST ORDER Performing Organization Address [facility] Co de Phone Number [facility] [address] [place] [address], [facility] * (ABNORMAL) Glucose by meter (03/18/2023 9:22 AM CLAMP TRUCK DRIVER) GLUCOSE BY METER POCT 100(H) 70 - 99 mg/dL 03/18/2023 9:36 AM CLAMP TRUCK DRIVER [facility] P[facility] Blood, Capillary BLOOD SPECIMEN / Unknown 03/18/2023 9:22 AM CLAMP TRUCK DRIVER 03/18/2023 9:36 AM CLAMP TRUCK DRIVER Luis A FISH - BEAKER POCT [facility] P[facility] [employer] [facility] [address] [facility], [address] [place] [address], [facility] [phone] documented in this encounter Visit Diagnoses Diagnosis Morbid obesity (H)- Primary Morbid obesity Morbid obesity (H) Morbid obesity Acute post-operative pain Other acute postoperative pain S/P laparoscopic sleeve gastrectomy documented in this encounter Admitting Diagnoses Diagnosis Morbid obesity (H) Morbid obesity documented in this encounter Administered Medications Inactive Administered Medications - up to 3 most recent administrations Medication Order MAR Action Action Date Dose Rate Site acetaminophen (TYLENOL) tablet 975 mg 975 mg, Oral, ONCE, On Thu03/18/23 at 0930, For 1 dose, Give 60 minutes prior to procedure. Maximum acetaminophen dose from all sources = 75 mg/kg/day not to exceed 4 grams/day., Pre-procedure $Given 03/18/2023 10:27 AM CLAMP TRUCK DRIVER 975 mg acetaminophen (TYLENOL) tablet 975 mg 975 mg, Oral, ONCE, On Thu03/18/23 at 1630, For 1 dose, Maximum acetaminophen dose from all sources = 75 mg/kg/day not to exceed 4 grams/day. $Given 03/18/2023 4:19 PM CLAMP TRUCK DRIVER 975 mg amisulpride (BARHEMSYS) injection 10 mg 10 mg, Intravenous, ONCE, Administer over 1-2 Minutes, On Thu03/18/23 at 1530, For 1 dose, Protect from Light. $Given 03/18/2023 3:59 PM CLAMP TRUCK DRIVER 10 mg atorvastatin (LIPITOR) tablet 40 mg 40 mg, Oral, EVERY EVENING, First dose on Thu03/18/23 at 2000 $Given 03/18/2023 7:30 PM CLAMP TRUCK DRIVER 40 mg cyanocobalamin (VITAMIN B-12) sublingual tablet 500 mcg 500 mcg, Sublingual, DAILY, First dose (after last modification) on Thu03/18/23 at 1930 $Given 03/19/2023 8:43 AM CLAMP TRUCK DRIVER 500 mcg $Given 03/18/2023 7:09 PM CLAMP TRUCK DRIVER 500 mcg dextrose 50 % injection 25-50 [...] used when administering multiple Central Nervous System (HAZARDOUS WASTE REMOVER) depressing meds within a short time frame. diphenhydrAMINE (BENADRYL) injection 25 mg 25 mg, Intravenous, EVERY 6 HOURS PRN, itching, Only give if patient unable to take PO., Starting on Thu03/18/23 at 1753, Caution to be used when administering multiple Central Nervous System (HAZARDOUS WASTE REMOVER) depressing meds within a short time frame. Protect from light. enoxaparin ANTICOAGULANT (LOVENOX) injection 40 mg 40 mg, Subcutaneous, PRE-OP/PRE-PROCEDURE, Starting on Thu03/18/23 at 0909, For 1 dose, Pre-procedure $Given 03/18/2023 10:27 AM CLAMP TRUCK DRIVER 40 mg enoxaparin ANTICOAGULANT (LOVENOX) injection 40 mg 40 [...] and notify provider. $Given 03/19/2023 8:43 AM CLAMP TRUCK DRIVER 40 mg fentaNYL (PF) (SUBLIMAZE) injection 50 mcg 50 mcg, Intravenous, EVERY 5 MIN PRN, [...] (SUBLIMAZE) after moving to HYDROmorphone (DILAUDID)., PACU $Given 03/18/2023 2:43 PM CLAMP TRUCK DRIVER 50 mcg $Given 03/18/2023 2:35 PM CLAMP TRUCK DRIVER 50 mcg gabapentin (NEURONTIN) tablet 600 mg 600 mg, Oral, AT BEDTIME, First dose on Thu03/18/23 at 2200 $Given 03/18/2023 10:24 PM CLAMP TRUCK DRIVER 600 mg glucagon injection 1 mg 1 [...] injection 0.2 mg 0.2 mg, Intravenous, EVERY 5 MIN PRN, moderate pain, Starting on Thu03/18/23 at 1430, Use FentaNYL (SUBLIMAZE) first if ordered. Administer HYDROmorphone (DILAUDID) up to a total of 2 mg for moderate or severe pain. Notify Provider to assess for uncontrolled pain or analgesic side effects., PACU $Given 03/18/2023 3:45 PM CLAMP TRUCK DRIVER 0.2 mg $Given 03/18/2023 3:40 PM CLAMP TRUCK DRIVER 0.2 mg $Given 03/18/2023 2:53 PM CLAMP TRUCK DRIVER 0.2 mg HYDROmorphone (DILAUDID) injection 0.2 mg 0.2 mg, Intravenous, EVERY 2 HOURS PRN, other, For optimal opioid multimodal pain management to improve pain control and physical function IF patient cannot take oral opioid., Starting on Thu03/18/23 at 1753, ~ Administer for pain not controlled by oral opioid. ~ Hold dose while on IV ADMINISTRATIVE OFFICE ASSISTANT. ~ Hold dose for analgesic side effects. ~ Notify provider to assess patient for uncontrolled pain or analgesic side effects. ~ Discontinue within 48 hours of surgery to facilitate transition to oral pain management. $Given 03/19/2023 8:39 AM CLAMP TRUCK DRIVER 0.2 mg $Given 03/19/2023 4:16 AM CLAMP TRUCK DRIVER 0.2 mg $Given 03/19/2023 12:00 AM CLAMP TRUCK DRIVER 0.2 mg HYDROmorphone (DILAUDID) injection 0.4 mg 0.4 mg, Intravenous, EVERY 5 MIN PRN, severe pain, Starting on Thu03/18/23 at 1430, Use FentaNYL (SUBLIMAZE) first if ordered. Administer HYDROmorphone (DILAUDID) up to a total of 2 mg for moderate or severe pain. Notify Provider to assess for uncontrolled pain or analgesic side effects., PACU $Given 03/18/2023 3:50 PM CLAMP TRUCK DRIVER 0.4 mg $Given 03/18/2023 3:02 PM CLAMP TRUCK DRIVER 0.4 mg $Given 03/18/2023 2:58 PM CLAMP TRUCK DRIVER 0.4 mg hyoscyamine (LEVSIN/SL) sublingual tablet 125 mcg [...] of correction dose. $Given 03/18/2023 7:33 PM CLAMP TRUCK DRIVER 1 Units insulin regular 1 unit/mL injection 2 Units 2 Units, Intravenous, ONCE, On Thu03/18/23 at 1500, For 1 dose $Given 03/18/2023 2:49 PM CLAMP TRUCK DRIVER 2 Units lactated ringers infusion at 75 mL/hr, Intravenous, CONTINUOUS, Infuse at 75 mL/hr until patient tolerating clear liquids, then discontinue., Starting on Thu03/18/23 at 1500, Until Li 03/19/23 at 1620 Rate/Dose Verify 03/19/2023 8:47 AM CLAMP TRUCK DRIVER 75 mL/hr $New Bag 03/19/2023 2:48 AM CLAMP TRUCK DRIVER 75 mL/hr Rate/Dose Verify 03/18/2023 8:17 PM CLAMP TRUCK DRIVER 75 mL/h r levothyroxine (SYNTHROID/LEVOTHROID) tablet 225 mcg 225 mcg, Oral, AT BEDTIME, First dose on Thu03/18/23 at 2200, Separate oral administration of iron- or calcium-containing products and levothyroxine by at least 4 hours. $Given 03/18/2023 10:25 PM CLAMP TRUCK DRIVER 225 mcg methocarbamol (ROBAXIN) injection 500 mg 500 mg, Intravenous, ONCE, On Thu03/18/23 at 1630, For 1 dose, Do not refrigerate. $Given 03/18/2023 4:24 PM CLAMP TRUCK DRIVER 500 mg naloxone (NARCAN) injection 0.2 mg 0.2 mg, [...] injection 4 mg 4 mg, Intravenous, EVERY 30 MIN PRN, nausea, Administer over 2-5 Minutes, Starting on Thu03/18/23 at 1430, For 2 doses, MAX total dose = 8 mg, including OR dosing. If not resolved in 15 minutes, then go to step 2 [prochlorperazine (COMPAZINE), if ordered]. Irritant., PACU $Given 03/18/2023 2:38 PM CLAMP TRUCK DRIVER 4 mg ondansetron (ZOFRAN) injection 4 mg 4 mg, [...] analgesic side effects. Hold while on IV ADMINISTRATIVE OFFICE ASSISTANT or with regular IV opioid dosing. $Given 03/18/2023 7:09 PM CLAMP TRUCK DRIVER 5 m g oxyCODONE IR (ROXICODONE) tablet 10 mg 10 mg, Oral, EVERY 3 HOURS PRN, severe pain, (pain rating 7-10), Starting on Thu03/18/23 at 1753, Hold oral PRN dose for analgesic side effects. Notify provider to assess for uncontrolled pain or analgesic side effects. Hold while on IV ADMINISTRATIVE OFFICE ASSISTANT or with regular IV opioid dosing. $Given 03/19/2023 1:03 PM CLAMP TRUCK DRIVER 10 mg $Given 03/19/2023 9:51 AM CLAMP TRUCK DRIVER 10 mg $Given 03/19/2023 6:20 AM CLAMP TRUCK DRIVER 10 mg prochlorperazine (COMPAZINE) injection 10 mg 10 mg, Intravenous, EVERY 6 HOURS PRN, nausea, vomiting, Administer over 1-2 Minutes, Starting on Thu03/18/23 at 1753, This is Step 2 of the nausea and vomiting management. prochlorperazine (COMPAZINE) injection 5 mg 5 mg, Intravenous, EVERY 6 HOURS PRN, nausea, vomiting, Administer over 1-2 Minutes, Starting on Thu03/18/23 at 1430, PACU $Given 03/18/2023 2:47 PM CLAMP TRUCK DRIVER 5 mg prochlorperazine (COMPAZINE) tablet 10 mg 10 mg, Oral, EVERY 6 HOURS PRN, nausea, vomiting, Starting on Thu03/18/23 at 1753, This is Step 2 of the nausea and vomiting management. rOPINIRole (REQUIP) tablet 2 mg 2 mg, Oral, 2 TIMES DAILY, First dose on Thu03/18/23 at 2000 $Given 03/19/2023 8:43 AM CLAMP TRUCK DRIVER 2 mg scopolamine (TRANSDERM) 72 hr patch 1 patch 1 patch, Transdermal, ONCE, Administer over 72 [...] Remove previous patch before applying new patch. $Patch/Med Applied 03/18/2023 3:10 PM CLAMP TRUCK DRIVER 1 patch Behind Left Ear scopolamine (TRANSDERM-SCOP) Patch in Place First dose [...] for loose stools. $Given 03/19/2023 8:42 AM CLAMP TRUCK DRIVER 2 tablets $Given 03/18/2023 7:30 PM CLAMP TRUCK DRIVER 1 tablet sodium chloride (PF) 0.9% PF flush 3 mL 3 mL, Intracatheter, EVERY 8 HOURS, First dose on Thu03/18/23 at 1800, to lock peripheral IV dormant line $Given 03/18/2023 7:35 PM CLAMP TRUCK DRIVER 3 mLs documented in this encounter Active and Recently Administered Medications Times are shown in CLAMP TRUCK DRIVER. Scheduled Medication Order 03/17/2023 03/18/2023 03/19/2023 acetaminophen [...] 4 grams/day. 1619 ($Given - Provider: Kaykay Rodríguze, SKIP) amisulpride (BARHEMSYS) injection 10 mg (COMPLETED) 10 mg, Intravenous, ONCE, Administer over 1-2 Minutes, On Thu03/18/23 at 1530, For 1 dose, Protect from Light. 1559 ($Given - Provider: Kaykay Rodríguez, SKIP) atorvastatin (LIPITOR) tablet 40 mg 40 mg, [...] RN)1205 ($Given - Provider: Emerita Jacques APRN TREE SURGEON HELPER) cyanocobalamin (VITAMIN B-12) sublingual tablet 500 mcg 500 mcg, Sublingual, DAILY, First dose (after last modification) on Thu03/18/23 at 1930 1909 ($Given - Provider: Radha Sommers, SKIP) 0843 ($Given - Provider: Ibis Key RN) enoxaparin ANTICOAGULANT (LOVENOX) injection 40 mg (COMPLETED) [...] provider. 0843 ($Given - Provi andrade: Ibis Key RN) famotidine (PEPCID) injection 20 mg (COMPLETED) 20 mg, Intravenous, Administer over 2 Minutes, PHOTO RETOUCHER TO O.R., Starting on Thu03/18/23 at 0909, For 1 dose, Give unless patient already took any of the following at home the morning of surgery: famotidine (PEPCID), ranitidine (ZANTAC), cimetidine (TAGAMET), nizatadine (AXID). For ordered IV doses 1-20 mg, give IV Push diluted with 5-10 mL NS over a minimum of 2 minutes., Pre-procedure 1143 ($Given - Provider: Emerita Jacques APRN CRNA) gabapentin (NEURONTIN) tablet 600 mg 600 mg, [...] 350 mg/dL after administration of correction dose. 1939 ($Given - Provider: Oralia Morelos RN - Comment: BG 145) 0091 (Not Given - Provider: Ibis Key RN [...] EVERY EVENING, First dose on Thu03/18/23 at 1999, Open capsule and mix intact pellets with 1 teaspoon clear liquid (ex. Jell-O or applesauce). 2019 (Not Given - Provider: Oralia Morelos RN - Reason: Patient/family refused) rOPINIRole (REQUIP) tablet 2 mg 2 mg, Oral, 2 TIMES DAILY, First dose on Thu03/18/23 at 1999 1958 (Not Given - Provider: Oralia Morelos RN - Reason: Other - Comment: already given) 0843 ($Given - Provider: Ibis Key RN) scopolamine (TRANSDERM) 72 hr patch 1 patch(Linked [...] wants 1) 0842 ($Given - Provider: Ibis Key RN) sodium chloride (PF) 0.9% PF flush 3 mL 3 mL, Intracatheter, EVERY 8 HOURS, First dose on Thu03/18/23 at 1800, to lock peripheral IV dormant line 1935 ($Given - Provider: Oralia Morelos RN) 0622 [...] RN) 0248 ($New Bag - Provider: Brandan Hernandez RN)0847 (Rate/Dose Verify - Provider: Ibis Key, SKIP)1147 [...] used when administering multiple Central Nervous System (HAZARDOUS WASTE REMOVER) depressing meds within a short time frame. diphenhydrAMINE (BENADRYL) injection 25 mg(Linked Group 4) 25 mg, Intravenous, EVERY 6 HOURS PRN, itching, Only give if patient unable to take PO., Starting on Thu03/18/23 at 1753, Caution to be used when administering multiple Central Nervous System (HAZARDOUS WASTE REMOVER) depressing meds within a short time frame. [...] Kaykay Rodríguez, RN)1443 ($Given - Provider: Kaykay Rodríguez, RN) glucagon injection 1 mg(Linked Group 3) [...] Kaykay Rodríguez RN)1453 ($Given - Provider: Kaykay Rodríguez RN)1540 ($Given - Provider: Kaykay Rodríguez RN)1545 [...] opioid. ~ Hold dose while on IV ADMINISTRATIVE OFFICE ASSISTANT. ~ Hold dose for analgesic side effects. ~ Notify provider to assess patient for uncontrolled pain or analgesic side effects. ~ Discontinue within 48 hours of surgery to facilitate transition to oral pain management. 2015 ($Given - Provider: Oralia Morelos RN) 0000 ($Given - Provider: Brandan Hernandez RN)0416 ($Given - Provider: Brandan Hernandez, SKIP)0839 ($Given - Provider: Ibis Key, SKIP) HYDROmorphone (DILAUDID) injection 0.4 mg (CANCELED) 0.4 [...] analgesic side effects. Hold while on IV ADMINISTRATIVE OFFICE ASSISTANT or with regular IV opioid dosing. 190 ($Given - Provider: Radha Sommers RN)222 (See Alternative - Provider: Oralia Morelos RN) 0137 (See Alternative - Provider: Brandan Hernandez RN)0620 (See Alternative - Provider: Brandan Hernandez RN)0951 (See Alternative - Provider: Ibis Key RN)1303 (See Alternative - Provider: Ibis Key, RN) oxyCODONE IR (ROXICODONE) tablet 10 mg(Linked Group 8) 10 mg, Oral, EVERY 3 HOURS PRN, severe pain, (pain rating 7-10), Starting on Thu03/18/23 at 1753, Hold oral PRN dose for analgesic side effects. Notify provider to assess for uncontrolled pain or analgesic side effects. Hold while on IV ADMINISTRATIVE OFFICE ASSISTANT or with regular IV opioid dosing. 1908 [...] used when administering multiple Central Nervous System (HAZARDOUS WASTE REMOVER) depressing meds within a short time frame. Or diphenhydrAMINE (BENADRYL) injection 25 mgJump to med 25 mg, Intravenous, EVERY 6 HOURS PRN, itching, Only give if patient unable to take PO., Starting on Thu03/18/23 at 1753, Caution to be used when administering multiple Central Nervous System (HAZARDOUS WASTE REMOVER) depressing meds within a short time frame. [...] analgesic side effects. Hold while on IV ADMINISTRATIVE OFFICE ASSISTANT or with regular IV opioid dosing. Or oxyCODONE IR (ROXICODONE) tablet 10 mgJump to med 10 mg, Oral, EVERY 3 HOURS PRN, severe pain, (pain rating 7-10), Starting on Thu03/18/23 at 1753, Hold oral PRN dose for analgesic side effects. Notify provider to assess for uncontrolled pain or analgesic side effects. Hold while on IV ADMINISTRATIVE OFFICE ASSISTANT or with regular IV opioid dosing. Group [...] documented as of this encounter Care Teams Physical Sciences Instructor Relationship Specialty [place] [address] [place] [address] PCP - General 10/15/22 Roderick Morelos MD [address] [place] [address] Cardiovascular Disease 02/03/22 Magno Wood MD 420 [facility] [address] [place] [address] Otolaryngology 02/21/22 Sophie Ocasio AuD [address] [place], [place] 808935 Analyst Food And Beverage Audiology 02/21/22 Henny Rosales, SEMICONDUCTOR PACKAGES TESTER MUD MILL TENDER [address] [place] [phone] Assigned Heart and Vascular Provider 08/09/[address] [place] [address] [phone] Registered Dietitian Dietitian, Registered 09/02/22 Christiane Rodríguez MD 420 [facility] [address] [place], [place] 874375 Otolaryngology 11/12/22 Jing Cadena, SEMICONDUCTOR PACKAGES TESTER HAZARDOUS WASTE REMOVER 420 [facility] [address] [place], [place] 524[address] Clinical Nurse Specialist Anesthesiology 01/15/23 Radha Lopez, [facility] [address] [place] [address] [phone] Pharmacist Pharmacist 01/16/23 Luis A Escobedo MD [address] [address] Assigned Surgical Provider 02/07/23 04/15/23 documented as of this encounter
--- OUTSIDE RECORDS SUMMARY | 2023-05-09 18:21 | XMS_ITS | Encounter Summary ---
Author Name Unknown Organization [place] Address [address] [place] [address] Care Team Providers Care Software Sales Executive Name Role Phone Roderick Morelos MD Unavailable [phone] Magno Wood MD Unavailable [phone] Sophie Ocasio AuD Unavailable [phone] Henny Rosales HYDRODYNAMICIST ROCK CRUSHING MACHINE OPERATOR Unavailable [phone] Unavailable Kaykay Duarte CLAY STRUCTURE BUILDER AND SERVICER Primary Care Provider [phone] Christiane Rodríguez MD Unavailable [phone] Chely FernandezC Unavailable [phone] Jing Cadena HYDRODYNAMICIST CASH ON DELIVERY CLERK Unavailable Radha Lopez [facility] Unavailable [phone] Luis A Escobedo MD Unavailable [phone] Geri LozaC Unavailable [phone] Encounter Details Date Type Department Care Team (Late st Contact Info) Description 01/21/2023 Nabil Medical Advice [facility] [place] [address] [facility] [address] [place] [address] Radha Dominguez, RN [address] [place] [address] [address] [place] [address] Social History Tobacco Use Types Packs/Day Years [...] Description 06/24/2023 12:30 PM CDT Virtual Visit [facility] [address] [phone] Geir Loza PA-C [address] [place] [address] [phone] 06/24/2023 1:00 PM CDT Virtual Visit [facility] [address] [phone] Sharee Negron, RD [address] [place] [address] [phone] documented as of this encounter Goals Goal [...] documented as of this encounter Care Teams Software Sales Executive Relationship Specialty Start Date End Date Kaykay Duarte CLAY STRUCTURE BUILDER AND SERVICER [address] [place] [address] PCP - General 10/15/22 Roderick Morelos MD [address] [place] [address] Cardiovascular Disease 02/03/22 Magno Wood MD [address] [place] [address] 396 [place] [address] Otolaryngology 02/21/22 Sophie Ocasio AuD [address] [place] [address] 334235 Dialysis Equipment Technician Audiology 02/21/22 Henny Rosales APRN ROCK CRUSHING MACHINE OPERATOR [address] [place] [phone] Assigned Heart and Vascular Provider 08/09/[address] [place] [address] [phone] Registered Dietitian Dietitian, Registered 09/02/22 Christiane Rodríguez MD [address] [place] [address] 311115 Otolaryngology 11/12/22 Chely Fernandez PA-C [address] [place] [address] [phone] Assigned Surgical Provider 11/29/22 02/06/23 Jing Cadena APRN CASH ON DELIVERY CLERK [address] [place] [address] [phone] Clinical Nurse Specialist Anesthesiology 01/15/23 Radha Lopez [facility] [address] [place] [address] Pharmacist Pharmacist 01/16/23 Luis A Escobedo MD [address] [place] [address] Assigned Surgical Provider 02/07/23 04/15/23 Geri Loza PA-C [address] [place] [address] Assigned Surgical Provider 04/16/23 documented as of this encounter
--- OUTSIDE RECORDS SUMMARY | 2023-05-09 18:21 | XMS_ITS | Encounter Summary ---
Author Name Unknown Organization [place] Address [address] [place] [address] Care Team Providers Care Business Controller Name Role Phone Roderick Morelos MD Unavailable [phone] Magno Wood MD Unavailable [phone] Sophie Ocasio AuD Unavailable [phone] Henny Rosales BANQUET COORDINATOR FEATHER STITCHER Unavailable Sharee Negron RD Unavailable Kaykay Duarte LASER/ELECTRO OPTICS TECHNICIAN Primary Care Provider Christiane Rodríguez MD Unavailable Chely FernandezC Unavailable Jing Cadena BANQUET COORDINATOR POWDER MILL OPERATOR Unavailable [facility] Unavailable [phone] Reason for Referral * Consultation (Routine: Next available opening) - Pending Review Specialty Diagnoses / Procedures Referred By Osmar t Referred To Contact Bariatric Diagnoses Morbid obesity (H) Luis A Escobedo MD 420 [facility] [address] [place] [address] [address] Phone: [phone] Referral ID Status Reason Start Date Expiration Date V isits Requested Visits Authorized [id number] Pending Review 02/03/2023 02/03/2024 1 1 Question Answer Does this visit require an anesthesia consult? Yes Evaluate for medical neccesity for one of the following co-morbidities: Other Other co-morbidities: Morbid Obesity H&P Completed by: Other - Use Comments - PAC per criteria Comments Please be aware that coverage of these services is subject to the terms and limitations of your health insurance plan. Call member services at your health plan with any benefit or coverage questions. ING ENGINEERING TECH Encounter Details Date Type Department Care Team (Late st Contact Info) Description 02/03/2023 Prep for Procedure [facility] Weight [facility] [address] [phone] Radha Dominguez RN [address] [address] Morbid obesity (H) (Primary Dx) Social History Tobacco Use Types Packs/Day Years Used Date Smoking Tobacco: Never Smokeless Tobacco: Never Alcohol Use Standard Drinks/Week Comments Yes 0 (1 standard drink = 0.6 oz pur e alcohol) socially PHQ-2 Answer Date Recorded PHQ-2 Score 0 02/06/2023 Adolescent Education Answer Date Record ed Getting School Help Needed Not on file 12/19 Sex and Gender Information Value Date Recorded Sex Assigned at Not on file Gender Identity Not on file Sexual Orientation Not on file documented as of this encounter Plan of Treatment Upcoming Encounters Date Type Department Care Team (Late st Contact Info) Description 06/24/2023 12:30 PM CDT Virtual Visit [facility] [address] [phone] Geri Loza PA-C [address] [place] [address] [phone] 06/24/2023 1:00 PM CDT Virtual Visit [facility] [address] [address] Sharee Negron, RD [address] [place] [address] Scheduled Referrals Name Type Priority Associated Diagnoses Orde r Schedule PAC Visit Referral (For [facility] Only) Referral Routine: Next available opening Morbid obesity (H) Expected: 02/03/2023 (Approximate), Expires: 02/04/2024 documented as of this encounter Goals Goal Patient Goal Type Associated Problems Recent Progress Patient-Stated? Author BRIAN PATHWAY SURGERY IS SCHEDULED Care Plan BRIAN PATHWAY SURGERY IS SCHEDULED No Luis A Escobedo MD documented as of this encounter Visit Diagnoses Diagnosis Morbid obesity (H)- Primary Morbid obesity documented in this encounter Additional Health Concerns Problem Noted Date Diagnosed Date BRIAN PATHWAY SURGERY IS SCHEDULED 10/15/2022 documented as of this encounter Care Teams Business Controller Relationship Specialty Start Date End Date Kaykay Duarte LASER/ELECTRO OPTICS TECHNICIAN [address] [place] [address] PCP - General 10/15/22 Roderick Morelos MD [address] [place] [address] Cardiovascular Disease 02/03/22 Magno Wood MD [address] [place] [address] 712055 Otolaryngology 02/21/22 Sophie Ocasio AuD [address] [place] [address] 079475 Cream Gatherer Audiology 02/21/22 Henny Rosales APRN FEATHER STITCHER [address] [place] [phone] Assigned Heart and Vascular Provider 08/09/[address] [place] [address] 194005 Registered Dietitian Dietitian, Registered 09/02/22 Christiane Rodríguez MD [address] [place] [address] 396 [place] [address] Otolaryngology 11/12/22 Chely Fernandez PA-C [address] [place] [address] Assigned Surgical Provider 11/29/22 02/06/23 Jing Cadena APRN POWDER MILL OPERATOR [address] [place] [address] 450 [place] [address] Clinical Nurse Specialist Anesthesiology 01/15/23 Rad[facility] [address] [place] [address] Pharmacist Pharmacist 01/16/23 documented as of this encounter
--- OUTSIDE RECORDS SUMMARY | 2023-05-09 18:21 | XMS_ITS | Encounter Summary ---
Author Name Unknown Organization [place] Address [address] [place] [address] Care Team Providers Care Machine Shop Specialist Name Role Phone Roderick Morelos MD Unavailable Magno Wood MD Unavailable [phone] Sophie Ocasio AuD Unavailable [phone] Henny Rosales ELECTRONIC COMMUNICATIONS TECHNICIAN WIRE WALKER Unavailable Sharee Negron RD Unavailable Kaykay Duarte GRAPHIC DESIGN TEACHER Primary Care Provider Christiane Rodríguez MD Unavailable Chely Fernandez PA-C Unavailable [phone] Jing Cadena ELECTRONIC COMMUNICATIONS TECHNICIAN AUTO GLASS INSTALLER Unavailable [phone] Radha Lopez [facility] Unavailable Encounter Details Date Type Department Care Team (Late st Contact Info) Description 01/27/2023 Telephone [facility] [place] [address] [facility] [address] 4th [place] [address] Luis A Escobedo MD 420 [facility] 195 [place] [address] Social History Tobacco Use Types Packs/Day Years Used Date Smoking Tobacco: Never Smokeless Tobacco: Never Alcohol Use Standard Drinks/Week Comments Yes 0 (1 standard drink = 0.6 oz pur e alcohol) socially PHQ-2 Answer Date Recorded PHQ-2 Score 0 01/27/2023 Adolescent Education Answer Date Record ed Getting School Help Needed Not on file 12/19 Sex and Gender Information Value Date Recorded Sex Assigned at Not on file Gender Identity Not on file Sexual Orientation Not on file documented as of this encounter Miscellaneous Notes * Telephone Encounter - Jeff Linares - 01/27/2023 1:31 PM CST General Call Contacts Type Contact Phone/Fax 01/27/2023 01:31 PM HEALTH INFORMATION SYSTEMS TECHNICIAN Phone (Incoming) Billie Connolly (Self) Reason for Call: pt wants to make sure you've rec'd fax of approval from her PCP for surg. Please let her know via [employer] Could we send this information to you in [employer] or would you prefer to receive a phone call?: Patient would like to be contacted via [employer] TH INFORMATION SYSTEMS TECHNICIAN documented in this encounter Plan of Treatment Upcoming Encounters Date Type Department Care Team (Late st Contact Info) Description 06/24/2023 12:30 PM CDT Virtual Visit [facility] [address] [phone] Geri Loza PA-C [address] [place] [address] [phone] 06/24/2023 1:00 PM CDT Virtual Visit [facility] [address] [address] Sharee Negron, ÁNGEL [address] [place] [address] [phone] documented as of this encounter Goals Goal [...] documented as of this encounter Care Teams Machine Shop Specialist Relationship Specialty Start Date End Date Kaykay Duarte GRAPHIC DESIGN TEACHER [address] [place] [address] PCP - General 10/15/22 Roderick Morelos MD [address] [place] [address] Cardiovascular Disease 02/03/22 Magno Wood MD [address] [place] [address] 485545 Otolaryngology 02/21/22 Sophie Ocasio AuD [address] [place] [address] 448355 Vehicle Painter Audiology 02/21/22 Henny Rosales APRN WIRE WALKER [address] [place] [phone] Assigned Heart and Vascular Provider 08/09/[address] [place] [address] [phone] Registered Dietitian Dietitian, Registered 09/02/22 Christiane Rodríguez MD [address] [place] [address] [phone] Otolaryngology 11/12/22 hCely Fernandez PA-C 909 [place] [address] Assigned Surgical Provider 11/29/22 02/06/23 Jing Cadena, ELECTRONIC COMMUNICATIONS TECHNICIAN AUTO GLASS INSTALLER [address] [place] [address] 450 [place], [place] 356[address] Clinical Nurse Specialist Anesthesiology 01/15/23 Radha Lopez, [facility] [address] [place] [address] Pharmacist Pharmacist 01/16/23 documented as of this encounter
--- OUTSIDE RECORDS SUMMARY | 2023-05-09 18:21 | XMS_ITS | Encounter Summary ---
Author Name Unknown Organization [facility] Address [address] [place] [address] Care Team Providers Care Police Radio Dispatcher Name Role Phone Roderick Morelos MD Unavailable [phone] Magno Wood MD Unavailable [phone] Sophie Ocasio AuD Unavailable [phone] Henny Rosales PILOT STEAM YACHT AUTOMATIC BEAM WARPER TENDER Unavailable Sharee Negron RD Unavailable Kaykay Duarte ORDNANCE ENGINEERING TECHNICIAN Primary Care Provider Christiane Rodríguez MD Unavailable [phone] Chely Fernandez PA-C Unavailable [phone] Jing Cadena PILOT STEAM YACHT DIESEL SERVICE JOURNEYMAN Unavailable Radha Lopez [facility] Unavailable [phone] Luis A Escobedo MD Unavailable [phone] Geri Lzoa PA-C Unavailable [phone] Encounter Details Date Type Department Care Team (Late st Contact Info) Description 01/26/[address] [facility] [address] 4th [place] [address] Geri Loza PA-C [address] [place] [address] Social History Tobacco Use Types Packs/Day Years [...] encounter Miscellaneous Notes * Telephone Encounter - Tamera Bhardwaj - 01/26/2023 9:59 AM CST Reason for Call: Other letter Detailed comments: Patient calling to check if a letter has been received by fax for her. Letter was sent this past per patient. Phone Number Patient can be reached at: Cell number on file: Telephone Information: Best Time: any Can we leave a detailed message on this number? YES Call taken on 01/26/2023 at 9:59 AM by Tamera Bhardwaj MOBILE CLUB INFORMATION CLERK documented in this encounter Plan of Treatment Upcoming Encounters Date Type Department Care Team (Late st Contact Info) Description 06/24/2023 12:30 PM CDT Virtual Visit [facility] [address] [phone] Geri Loza PA-C [address] [place] [address] 06/24/2023 1:00 PM CDT Virtual Visit [facility] [address] [phone] Sharee Negron, ÁNGEL [address] [place] [address] 132145 documented as of this encounter Goals Goal [...] documented as of this encounter Care Teams Police Radio Dispatcher Relationship Specialty [place] [address] [place] [address] PCP - General 10/15/22 Roderick Morelos MD [address] [place] [address] Cardiovascular Disease 02/03/22 Magno Wood MD [address] [place] [address] [phone] Otolaryngology 02/21/22 Sophie Ocasio AuD [address] [place] [address] [phone] Sludge Filtration Attendant Audiology 02/21/22 Henny Rosales, PILOT STEAM YACHT AUTOMATIC BEAM WARPER TENDER [address] [place] [phone] Assigned Heart and Vascular Provider 08/09/[address] [place] [address] 326505 Registered Dietitian Dietitian, Registered 09/02/22 Christiane Rodríguez MD [address] [place] [address] [phone] Otolaryngology 11/12/22 Chely Fernandez PA-C [address] [place] [address] [phone] Assigned Surgical Provider 11/29/22 02/06/23 Jing Cadena, PILOT STEAM YACHT DIESEL SERVICE JOURNEYMAN [address] [place] [address] Clinical Nurse Specialist Anesthesiology 01/15/23 Radha Lopez, [facility] [address] [place] [address] [phone] Pharmacist Pharmacist 01/16/23 Luis A Escobedo MD [address] [place] [address] [phone] Assigned Surgical Provider 02/07/23 04/15/23 Geri Loza PA-C [address] [place] [address] [phone] Assigned Surgical Provider 04/16/23 documented as of this encounter
--- OUTSIDE RECORDS SUMMARY | 2023-05-09 18:21 | XMS_ITS | Encounter Summary ---
Author Name Unknown Organization [facility] Address [address] [place] [address] Care Team Providers Care Aircraft Tool Maker Name Role Phone Roderick Morelos MD Unavailable [phone] Magno Wood MD Unavailable [phone] Sophie Ocasio AuD Unavailable Henny Rosales FUR GRADER SELF PROPELLED DREDGE OPERATOR Unavailable Sharee Negron RD Unavailable Kaykay Duarte REGULATORY ANALYST Primary Care Provider Christiane Rodríguez MD Unavailable Chely FernandezC Unavailable Jing Cadena FUR GRADER CRISIS NURSE Unavailable Radha Lopez [facility] Unavailable [phone] Reason for Visit * Reason Comments RECHECK Discuss surgery opti ons, revision Encounter Details Date Type Department Care Team (Late st Contact Info) Description 01/29/2023 8:00 AM STRAIGHT SLICING MACHINE OPERATOR Office Visit [facility] [place] [address] [place] [address] Luis A Escobedo MD [address] [facility] [address] [place] [address] S/P laparoscopic sleeve gastrectomy (Primary Dx); Class 3 severe obesity with serious comorbidity and body mass index (BMI) of 45.0 to 49.9 in adult, unspecified obesity type (H) Social History Tobacco Use Types Packs/Day Years Used Date Smoking Tobacco: Never Smokeless Tobacco: Never Tobacco Cessation:Counseling Given: Not Answered Alcohol Use Standard Drinks/Week Comments Yes 0 [...] Sign Reading Time Taken Comments Blood Pressure 130/65 01/29/2023 7:43 AM STRAIGHT SLICING MACHINE OPERATOR Pulse 78 01/29/2023 7:43 AM STRAIGHT SLICING MACHINE OPERATOR Temperature - - Respiratory Rate - - Oxygen Saturation 98% 01/29/2023 7:43 AM STRAIGHT SLICING MACHINE OPERATOR Inhaled Oxygen Concentration - - Weight 132.2 kg (291 lb 8 oz) 01/29/2023 7:43 AM STRAIGHT SLICING MACHINE OPERATOR Height 167.6 cm (5' 6) 01/29/2023 7:43 AM STRAIGHT SLICING MACHINE OPERATOR Body Mass Index 47.05 01/29/2023 7:43 AM STRAIGHT SLICING MACHINE OPERATOR documented in this encounter Progress Notes * Luis A Escobedo MD - 01/29/2023 8:00 AM CST I had the pleasure of seeing your patient, Billie Connolly, in my post-bariatric assessment clinic. As you know, she is morbidly obese and underwent laparoscopic sleeve gastrectomy surgery at [facility] to treat obesity in association with her medical conditions of obesity. She has quite severe reflux associated with recurrent and stubborn obesity. I did upper endoscopy last September which documented a quite large caliber sleeve and no pathologic evidence of reflux. Would like conversion of surgery to improve weight loss; Highest lifetime weight was 350s range; had sleeve gastrectomy at weight of 330s range and lost minimal amount of weight. We started seeing Billie in July 2022 for consideration of interventions for weight loss. Has used mounjaro; has tried orlistat. The upper endoscopy convinces me that there is no current surgical mechanism for weight loss as thesleeve is much too large to allow volume control of food nor hunger control with smaller volumes offood. We reviewed gastric bypass vs. Duodenal switch; the DS would likely not fix reflux that she has been having and would fail to address the large stomach problem unless a revision of the sleeve itself was also done, and this would have higher risk. Hence, I am recommending a conversion of sleeve to gastric bypass, to be done laparoscopically withor without the robot as an assist device. Surgery would take 3 hours. Overnight hospital stay with planned POD1 discharge. I reviewed the risks of surgery with Billie Connolly at some length, emphasizing the potential for bowel complications or peptic ulcer complications. These include, but are not limited to, [...] in patients who do not have diabetes. Most recent weights: Wt Readings from Last 20 Encounters: 01/29/23 132.2 kg (291 lb 8 oz) 01/27/23 131.5 kg (290 lb) 01/26/23 132 kg (291 lb) 01/07/23 131.5 kg (290 lb) 12/04/22 132.5 kg (292 lb) 11/19/22 135.2 kg (298 lb) 11/05/22 134.7 kg (297 lb) 11/03/22 135.2 kg (298 lb) 10/23/22 140.4 kg (309 lb 8 oz) 09/29/22 137.4 kg (303 lb) 09/02/22 137.4 kg (303 lb) 08/15/22 138.3 kg (305 lb) 08/08/22 142.4 kg (314 lb) 04/09/22 140 kg (308 lb 11.2 oz) 02/10/22 142.5 kg (314 lb 1.6 oz) 10/30/21 143 kg (315 lb 3.2 oz) 10/09/21 140.8 kg (310 lb 8 oz) 06/19/21 142.2 kg (313 lb 6.4 oz) 04/03/21 141.8 kg (312 lb 11.2 oz) 03/01/21 141.1 kg (311 lb) Currently, her Body mass index is 47.05 kg/m??. ACTIVE MEDICAL PROBLEMS Patient Active Problem List Diagnosis Wheezing Asthma exacerbation Hypothyroidism, unspecified type Viral pneumonitis Hypoxia 2018 novel coronavirus disease (COVID-19) Bloody stool Cervical [...] whether persistent Hyperglycemia S/P laparoscopic sleeve gastrectomy Past Medical History: Diagnosis Date Asthma GERD (gastroesophageal reflux disease) Hypercholesterolemia Hypothyroidism Mitral valve disease mild-possibly due to phen-fen morbid obesity Non-compliance missed meds, missed office visits MARVA (obstructive sleep apnea) does not use cpap Panic attacks PVC (premature ventricular contraction) Restless leg syndrome 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 Body mass index is 47.05 kg/m??. NAD NCAT Respiratory: breathing unlabored Abdomen: s/nt/nd; inc c/d/i I reviewed the post-bariatric clinic questionnaire available in the [employer] system as a separate document. Vitamins: mvi bid, vitamin B12 IM qmonth, and calcium citrate 1200 mg + qday. Ursodiol: not needed. Fluid intake: enough oz per day We reviewed appropriate food eating guidelines in the regular diet phase. Regular food only (chewable food). Only eat what you can picker feeder with a fork. Avoid all liquid foods (anything pourable that has calories in it) from now on. Avoid all crumbly foods (crackers, cookies, chips, toast) and all starch-based foods (potatoes, bread, pasta, rice). Start with protein food in each meal (steak, chicken, fish, beans, eggs); then leafy vegetables (dry leafy vegetables such as spinach, kale, manoj, dandelions, mixed greens, etc.); then solid fruits. No drinking while eating. Try holding off on drinking until 60 or more minutes after eating. Special testing: none now No orders of the defined types were placed in this encounter. PLAN 1. Consider liquid diet or modified liquid diet in the month prior to surgery. 2. F/u routine bariatric diet guidelines. 3. Focus on eating until hunger goes away rather than eating all the way to full. 3. Start with protein sources of food, move to leafy vegetables next, and then eat solid fruits. 4. Follow-up: at time of surgery. If you have any questions about our plans, please don't hesitate to contact me. Luis A Escobedo MD Surgery [phone] (hospital tape cutting machine operator) [phone] (clinic nurses) Main follow-up parameters for all bariatric patients (non-band): 1. Follow-up interval during the first year: ~1 week, 1 month, 3, 6, 9, 12 months. Every 6 months until 5 years; annually thereafter. The goal of follow-up sessions is to ensure that food intake behavior (choice of food and eating speed) and exercise/activity level are set appropriately. 2. Yearly lab tests ordered by our clinic. 3. The bariatric team should be aware and potentially evaluate all adverse gastrointestinal symptoms (dysphagia, abdominal pain, nausea, vomiting, diarrhea, heartburn, reflux, etc), which can be a sign of complication. The bariatric surgeons perform general surgery procedures in addition to bariatric surgery (laparoscopic cholecystectomy, etc.) 4. Inability to tolerate textured food (chicken, steak, fish, eggs, beans) is NOT normal and may need to be evaluated by endoscopy performed by the bariatric surgeon. 5. All non-band patients should supplement with mvi bid (flintstones or equivalent), calcium citrate with vitamin D, 1200+ mg/day, and vitamin B12 1000 mcg IM q month (or 1000 mcg SL qday). 6. All duodenal switch (biliopancreatic diversion with duodenal switch) patients require additionalfat soluble vitamin supplementation (3 ADEK tablets every day; each contains vitamin A - 5667 IU; vitamin D - 400 IU; vitamin E - 150 IU; and vitamin K - 150 mcg) IGHT SLICING MACHINE OPERATOR documented in this encounter Nursing Notes * Yakov Rubio, EMT - 01/29/2023 8:00 AM CST (?? Chief Complaint Patient presents with RECHECK Discuss surgery options, revision ??) (??Weight: 132.2 kg (291 lb 8 oz)??) (??Height: 167.6 cm (5' 6)??) (??BMI (Calculated): 47.05??) (?) (?) (?) (?) (?) (?) (??BP: 130/65??) (?) (?) (?) (??Pulse: 78??) (?) (??SpO2: 98 %??) (?? Patient Active Problem List Diagnosis Wheezing Asthma [...] whether persistent Hyperglycemia S/P laparoscopic sleeve gastrectomy ??) (?? Current Outpatient Medications Medication Sig Dispense Refill [...] Inject 15 mg Subcutaneous every 7 days ??) (??Diabetes Eval: ??) (??Pain Eval: No Pain (0)??) (??Wound Eval: ??) (?? History Smoking Status Never Smokeless Tobacco Never ??) (??Signed By: Yakov Rubio EMT; January 29, 2023; 7:50 AM??) IGHT SLICING MACHINE OPERATOR documented in this encounter Plan of Treatment Upcoming Encounters Date Type Department Care Team (Late st Contact Info) Description 06/24/2023 12:30 PM CDT Virtual Visit [facility] [address] [phone] Geri Loza PA-C [address] [place] [address] [phone] 06/24/2023 1:00 PM CDT Virtual Visit [facility] [address] [phone] Sharee Negron, RD [address] [place] [address] [phone] documented as of this encounter Goals Goal [...] 49.9 in adult, unspecified obesity type (H) documented in this encounter Additional Health Concerns Problem Noted Date Diagnosed Date BRIAN PATHWAY SURGERY IS SCHEDULED 10/15/2022 documented as of this encounter Care Teams Aircraft Tool Maker Relationship Specialty [place] [address] [place] [address] PCP - General 10/15/22 Roderick Morelos MD [address] [place], [place] [address] Cardiovascular Disease 02/03/22 Magno Wood MD [address] [place] [address] [phone] Otolaryngology 02/21/22 Sophie Ocasio AuD [address] [place] [address] [phone] Driver License Technician Audiology 02/21/22 Henny Rosales APRN SELF PROPELLED DREDGE OPERATOR [address] [place] [address] Assigned Heart and Vascular Provider 08/09/[address] [place] [address] [phone] Registered Dietitian Dietitian, Registered 09/02/22 Christiane Rodríguez MD [address] [place] [address] [phone] Otolaryngology 11/12/22 Chely Fernandez PA-C [address] [place] [address] [phone] Assigned Surgical Provider 11/29/22 02/06/23 Jing Cadena FUR GRADER CRISIS NURSE [address] [place] [address] Clinical Nurse Specialist Anesthesiology 01/15/23 Radha Lopez, [facility] [address] [place] [phone] Pharmacist Pharmacist 01/16/23 documented as of this encounter
--- OUTSIDE RECORDS SUMMARY | 2023-05-09 18:21 | XMS_ITS | Encounter Summary ---
Author Name Unknown Organization [place] Address [address] [place] [id number] Care Team Providers Care Abrasive Sawyer Name Role Phone Roderick Morelos MD Unavailable Magno Wood MD Unavailable [phone] Sophie Ocasio AuD Unavailable [phone] Henny Rosales HOSE TUBING BACKER LINING SCRUBBER Unavailable [phone] Unavailable Kaykay Duarte PERSONAL COMPUTER SPECIALIST Primary Care Provider Christiane Rodríguez MD Unavailable [phone] Jing Cadena HOSE TUBING BACKER PRICING STRATEGIST Unavailable [phone] Radha Lopez [facility] Unavailable [phone] Luis A Escobedo MD Unavailable [phone] Encounter Details Date Type Department Care Team (Late st Contact Info) Description 02/10/2023 Telephone [facility] [address] [place] [address] Edgar Rothman Social History Tobacco Use Types Packs/Day Years [...] encounter Miscellaneous Notes * Telephone Encounter - Edgar Rothman - 02/10/2023 8:09 AM CST Received the prior authorization from for conversion surgery laparoscopic sleeve gastrectomy to Juan F-en-Y gastric bypass, CPT-[place] [address] [place] [id number]. Auth ref # [id number] effective 01/1723 - 08/06/23 per letter dated February 09, 2023. ON CAPTURE POWER PLANT MANAGER documented in this encounter Plan of Treatment Upcoming Encounters Date Type Department Care Team (Late st Contact Info) Description 06/24/2023 12:30 PM CDT Virtual Visit [facility] [address] [phone] Geri Loza PA-C [address] [place] [address] [phone] 06/24/2023 1:00 PM CDT Virtual Visit [facility] [address] [phone] Sharee Negron, RD [address] [place] [phone] documented as of this encounter Goals Goal [...] documented as of this encounter Care Teams Abrasive Sawyer Relationship Specialty Start [place] [address] [place] [address] PCP - General 10/15/22 Roderick Morelos MD [address] [place] [address] Cardiovascular Disease 02/03/22 Magno Wood MD [address] [place] [address] [phone] Otolaryngology 02/21/22 Sophie Ocasio AuD [address] [place] [address] [phone] Sprue Knocker Audiology 02/21/22 Henny Rosales, HOSE TUBING BACKER LINING SCRUBBER [address] [place] [phone] Assigned Heart and Vascular Provider 08/09/[address] [place] [address] [phone] Registered Dietitian Dietitian, Registered 09/02/22 Christiane Rodríguez MD [address] [place] [address] [phone] Otolaryngology 11/12/22 Jing Cadena, HOSE TUBING BACKER PRICING STRATEGIST [address] [place] [address] [phone] Clinical Nurse Specialist Anesthesiology 01/15/23 Radha Lopez, [facility] [address] [place] [phone] Pharmacist Pharmacist 01/16/23 Luis A Escobedo MD [address] [place] [address] [phone] Assigned Surgical Provider 02/07/23 04/15/23 documented as of this encounter
--- OUTSIDE RECORDS SUMMARY | 2023-05-09 18:21 | XMS_ITS | Encounter Summary ---
Author Name Unknown Organization [place] Address [address] [place] [address] Care Team Providers Care Finisher Fine Diamond Dies Name Role Phone Roderick Morelos MD Unavailable [phone] Magno Wood MD Unavailable [phone] Sophie Ocasio AuD Unavailable [phone] Henny Rosales DUMP GRADER LOGISTICS ENGINEERING MANAGER Unavailable Sharee Negron RD Unavailable Kaykay Duarte MANUFACTURING SALES REPRESENTATIVE Primary Care Provider Christiane Rodríguez MD Unavailable Chely Fernandez PA-C Unavailable [phone] Jing Cadena DUMP GRADER OIL SPECULATOR Unavailable Radha Lopez [facility] Unavailable Reason for Visit * Reason Comments RECHECK Encounter Details Date Type Department Care Team (Late st Contact Info) Description 01/26/2023 9:00 AM INSOLE CEMENTER Virtual Visit [facility] [address] [place] [address] Geri Loza PA-C [address] [place] [address] Class 3 severe obesity with serious comorbidity and body mass index (BMI) of 45.0 to 49.9 in adult, unspecified obesity type (H) (Primary Dx); Gastroesophageal reflux disease with esophagitis, unspecified whether hemorrhage Social History Tobacco Use Types Packs/Day Years [...] - - Weight 132 kg (291 lb) 01/26/2023 8:29 AM INSOLE CEMENTER Height 167.6 cm (5' 6) 01/26/2023 8:29 AM INSOLE CEMENTER Body Mass Index 46.97 01/26/2023 8:29 AM INSOLE CEMENTER documented in this encounter Patient Instructions * Patient Instructions* Geri Loza PA-C - 01/26/2023 9:00 AM INSOLE CEMENTER Antonio Wise, Thank you for allowing us the privilege [...] Likely to Recommend Your visit was with GERI LOZA PA-C today. Instructions per today's visit: Continue Omeprazole 40mg BID. Refills sent JOE Slade Pharmacist on 01/27/23 Dr. Escobedo on 01/29/23 Important contact and scheduling information: Please call our contact center at [phone] to schedule your next appointments. For any nursing questions or concerns call Angélica Milligan LPN at [phone] or Henny Lobo RN [phone] Please call during clinic hours Thursday through Thursday 8:00a - 4:00p if you have questions or you can contact us via [employer] at anytime and we will reply during clinic hours. Lab results will be communicated through My Chart or letter (if My Chart not used). Please call theclinic if you have not received communication after 1 week or if you have any questions.? Clinic If labs were ordered today: Please make an appointment to have them drawn at your convenience. To schedule the Lab Appointment using [employer]: Select Schedule an Appointment Select Lab Only For A couple of questions, select Other For Which locations work for you?, select the location and set up the appointment To schedule by phone call [phone] to schedule a lab only appointment at any [facility] lab. Work with A Health Welder Tack! Virtual Sessions are Available through [facility] To learn more, call to schedule a free, Health Welder Tack Q&A appointment: [phone] What is Health Coaching? Do you know what you are supposed to do, but you just aren't doing it? Then, HEALTH COACHING may help you! Get unstuck and move forward with the support of a professionally trained NB- HWC (National Board-Certified Health and Negative Restorer) who uses evidence-based approaches to help you move forward withhealthy lifestyle changes in the areas of weight loss, stress management and overall well-being. Health Coaches help you identify goals that will work best for you. Health Coaches provide support and encouragement with overcoming barriers and help you to find inspiration and motivation to lead ahealthy lifestyle. Option one: Health Coaching 3-Pack; Three, 30-minute Health Coaching Visits, for $99 Visits are done virtually (phone or video) This is a self pay service; we do not accept insurance for glory coaching. Option two: The 24 week Plan; 11 Health Coaching Visits, and a 7 months subscription to [employer]-- on-demand fitness, nutrition and mindfulness classes, for $499 (employee discounts may be available). Participants will also meet regularly with a weight management Medical Provider and a Registered/Licensed Physician Office Nurse. This is a self-pay service; we do not accept insurance for health coaching. To Schedule a free Health Welder Tack Q&A appointment to learn more, call [phone]. [facility] Healthy Lifestyle Group Healthy Lifestyle Group This is a 60 minute virtual coaching group for those who want to lead a healthier lifestyle. Come together to set goals and overcome barriers in a supportive group environment. We will address the four pillars of health--nutrition, exercise, sleep and emotional well-being. This group is highly recommended for those who are participating in the 24 week Healthy Lifestyle Plan and our Health Coaching sessions. WHEN: This group meets the first Thursday of the month, 12:30 PM - 1:30 PM online, via a zoom meeting. HOTEL CONCIERGE: Led by National Board Certified Health and Negative Restorer, Yamilex Nix, [facility]. TO REGISTER: Please call the Call Center at [phone] to register. You will get an appointment to attend in [place]. Fifteen minutes prior to the meeting, complete the e-check in and you will get the link to join the meeting. There is no charge to attend this group and space is limited. 2022 and 2023 Meeting Topics and Dates: January 23: Introduction to Mindfulness (Learn simple and effective mindfulness practices and how it can benefit you) February 27: Let's Talk (guided discussion on our wins and challenges) March 27: New Years Vision: Manifest your Best 2023! (Guided imagery, journaling and discussion) April 24: Let's Talk May 21: 10 Percent Happier by Tunde Rice (Book Bites; a guided discussion on the nuggets of wisdomfrom favorite wellness books; no need to read the book but highly encouraged) June 25: Let's Talk July 23: Essentialism; The Disciplined Pursuit of Less by Reymundo Dow (book bites discussion) August 27: Let's Talk September 24: NO MEETING, off for the 23 of September Holiday October 22: The Blue Zones, Secrets for Living a Longer Life by Tunde To (book bites discussion) If you would like bariatric surgery specific support group info please let your care team know. Thank you, [facility] Comprehensive Weight Management Team LE CEMENTER documented in this encounter Progress Notes * Geri Loza PA-C - 01/26/2023 9:00 AM CST Virtual Visit Details Type of service: Video Visit Video Start Time: 9:00AM Video End Time: 9:21AM Originating Location (pt. Location): Home Distant Location (provider location): On-site Platform used for Video Visit: [facility] Bariatric Surgery Note RE: Billie Connolly MR#: [id number] : 1970 VISIT DATE: Jan 26, 2023 Dear Kaykay Duarte, I had the pleasure of seeing your patient, Billie Connolly, in my post-bariatric surgery assessment clinic. Assessment & Plan Problem List Items Addressed This Visit Gastroesophageal reflux disease with esophagitis Relevant Medications omeprazole (PRILOSEC) [address] capsule Continue Omeprazole 40mg BID. Refills sent JOE Slade Pharmacist on 01/27/23 Dr. Escobedo on 01/29/23 25 minutes spent by me on the date of the encounter doing chart review, history and exam, documentation and further activities per the note CHIEF COMPLAINT: Post-bariatric surgery follow-up. HISTORY OF PRESENT ILLNESS: 01/21/2023 4:11 AM Questions Regarding Prior Weight Loss Surgery Reviewed With Patient I had the following weight loss procedure Sleeve Gastrectomy What year was your surgery? 2020 How has your weight changed since your last visit? I have lost weight Do you currently have any of the following Diabetes Sleep Apnea Hyperlipidemia (high cholesterol, triglycerides)? Do you have any concerns today? No S/p gastric sleeve 08/09/2020 at [facility]. No post op complications. Weight prior to surgery - 338lbs, BMI 56.25 Braxton weight - 300lbs First seen 08/15/22 for New MWM - goal to have a conversion to RYBP due to inadequate weight loss and GERD after gastric sleeve surgery 2 years ago On Mounjaro for Type II Diabetes - has not lost any weight Seen by Dr. Joshua Daniel 06/2022 - UGI was completed Discussed possible conversion or revision at bariatric team meeting with plan: - EGD ordered - Dietitian monthly for 6 months - Start Marquez - follow up with Dr. Escobedo after EGD. Was at weight loss [facility]. But then went to [place] and gained 6 lb Anti-obesity medications: Current: Mounjaro 15mg - no side effects. Marquez - Loose stools, but tolerable. Seems to be helpful with weight loss. Recent diet changes: Continues to work on [employer] diet - low carb and high protein. Drinking 40-60oz of water daily. Recent exercise/activity changes: Minimal due to chronic hip pain. Recent stressors: Increase stress with trying to find a new job. Is not losing insurance. Recent sleep changes: No concerns Vitamins/Labs: MV, Vitamin D, and Vitamin 12 GERD - well controlled on medications. Weight History: 01/21/2023 4:11 AM -- What is your highest lifetime weight? 352 What is your lowest weight since surgery? (In pounds) 289 Initial Weight (lbs): 305 lbs Weight: 132 kg (291 lb) Last Visits Weight: 132.5 kg (292 lb) Cumulative weight loss (lbs): 14 Weight Loss Percentage: 4.59% 01/21/2023 4:11 AM Questions Regarding Co-Morbidities and Health Concerns Reviewed With Patient Pre-diabetes Stayed the same Diabetes II Stayed the same What was your most recent hemoglobin a1c 6.5 How many years have you had diabetes? 2 High Blood Pressure Never High cholesterol Stayed the same Heartburn/Reflux Improved Sleep apnea Stayed the same PCOS Never Back pain Stayed the same Joint pain Worsened Lower leg swelling Never 01/21/2023 4:11 AM Eating Habits How many meals do you eat per day? 3 Do you snack between meals? No How much food are you eating at each meal? 1/2 cup to 1 cup Are you able to separate your meals and liquids by at least 30 minutes? Yes Are you able to avoid liquid calories? Yes 01/21/2023 4:11 AM Exercise Questions Reviewed With Patient How often do you exercise? Never What keeps you from being more active? Pain Social History: 01/21/2023 4:11 AM -- Are you smoking? No Are you drinking alcohol? No Medications: Current Outpatient Medications Medication albuterol (PROAIR HFA/PROVENTIL HFA/VENTOLIN HFA) 108 (90 Base) MCG/ACT inhaler albuterol (PROVENTIL) (2.5 MG/3ML) 0.083% neb solution atorvastatin (LIPITOR) 40 MG tablet celecoxib (CELEBREX) 200 MG capsule Cyanocobalamin (B-12) 500 MCG SUBL levonorgestrel (MIRENA) 52 MG (20 mcg/day) IUD levothyroxine (SYNTHROID/LEVOTHROID) 200 MCG tablet omeprazole (PRILOSEC) [address] capsule rOPINIRole (REQUIP) 2 MG tablet tirzepatide (MOUNJARO) 15 MG/0.5ML pen blood glucose (ACCU-CHEK GUIDE) test strip estradiol (ESTRACE) 0.1 MG/GM vaginal cream fluticasone (FLOVENT HFA) 110 MCG/ACT inhaler gabapentin (NEURONTIN) 600 MG tablet Syringe/Needle, Disp, (BD ECLIPSE SYRINGE/NEEDLE) 25G X 5/8 3 ML MISC No current facility-administered medications for this visit. 01/21/2023 4:11 AM -- Do you avoid NSAIDs such as (Ibuprofen, Aleve, Naproxen, Advil)? Yes ROS: GI: 01/21/2023 4:11 AM -- Vomiting No Diarrhea No Constipation No Swallowing trouble No Abdominal pain No Heartburn No Skin: 01/21/2023 4:11 AM BAR RBS ROS - SKIN Rash in skin folds No Psych: 01/21/2023 4:11 AM -- Depression No Anxiety No Female Only: 01/21/2023 4:11 AM BAR RBS ROS - Female only control Stress urinary incontinence No Objective Ht 1.676 m (5' 6) Wt 132 kg (291 lb) BMI 46.97 kg/m?? Vitals - Patient Reported Pain Score: No Pain (0) Vitals: No vitals were obtained today due to virtual visit. Physical Exam GENERAL: Healthy, alert and no distress EYES: Eyes grossly normal to inspection. No discharge or erythema, or obvious scleral/conjunctival abnormalities. RESP: No audible wheeze, cough, or visible cyanosis. No visible retractions or increased work of breathing. SKIN: Visible skin clear. No significant rash, abnormal pigmentation or lesions. NEURO: Cranial nerves grossly intact. Mentation and speech appropriate for age. PSYCH: Mentation appears normal, affect normal/bright, judgement and insight intact, normal speech and appearance well-groomed. Sincerely, GERI LOZA PA-C LE CEMENTER documented in this encounter Nursing Notes * Sam Ogden - 01/26/2023 9:00 AM CST Is the patient currently in the state of [place]? YES Visit mode:VIDEO If the visit is dropped, the patient can be reconnected by: VIDEO VISIT: Text to cell phone: Telephone Information: Will anyone else be joining the visit? NO (If patient encounters technical issues they should call [phone] :[phone]) How would you like to obtain your AVS? MyChart Are changes needed to the allergy or medication list? No Reason for visit: RECHECK Sam Ogden VVF LE CEMENTER documented in this encounter Plan of Treatment Upcoming Encounters Date Type Department Care Team (Late st Contact Info) Description 06/24/2023 12:30 PM CDT Virtual Visit [facility] [address] [phone] Geri Loza PA-C [address] [place] [address] [phone] 06/24/2023 1:00 PM CDT Virtual Visit [facility] [address] [phone] Sharee Negron, RD [address] [place] [address] [phone] documented as of this encounter Goals Goal Patient Goal Type Associated Problems Recent Progress Patient-Stated? Author BRIAN PATHWAY SURGERY IS SCHEDULED Care Plan BRIAN PATHWAY SURGERY IS SCHEDULED No Luis A Escobedo MD documented as of this encounter Visit Diagnoses Diagnosis Class 3 severe obesity with serious comorbidity and body mass index (BMI) of 45.0 to 49.9 in adult, unspecified obesity type (H)- Primary Gastroesophageal reflux disease with esophagitis, unspecified whether hemorrhage documented in this encounter Additional Health Concerns Problem Noted Date Diagnosed Date BRIAN PATHWAY SURGERY IS SCHEDULED 10/15/2022 documented as of this encounter Care Teams Finisher Fine Diamond Dies Relationship Specialty Start Date End Date Kaykay Duarte MANUFACTURING SALES REPRESENTATIVE [address] [place] [address] PCP - General 10/15/22 Roderick Morelos MD [address] [place] [address] Cardiovascular Disease 02/03/22 Magno Wood MD [address] [place] [address] [phone] Otolaryngology 02/21/22 Sophie Ocasio, Nick [address] [place] [address] Medical Aides Teacher Audiology 02/21/22 Henny Rosales, DUMP GRADER LOGISTICS ENGINEERING MANAGER [address] [place] [phone] Assigned Heart and Vascular Provider 08/09/[address] [place] [address] [phone] Registered Dietitian Dietitian, Registered 09/02/22 Christiane Rodríguez MD [address] [place] [address] [address] [place], [place] [phone] Otolaryngology 11/12/22 Chely Fernandez PA-C [address] [place] [address] [phone] Assigned Surgical Provider 11/29/22 02/06/23 Jing Cadena APRN OIL SPECULATOR [address] [place] [address] [address] [place], [place] [address] Clinical Nurse Specialist Anesthesiology 01/15/23 Radha Lopez [facility] [address] [place] [address] Pharmacist Pharmacist 01/16/23 documented as of this encounter
--- OUTSIDE RECORDS SUMMARY | 2023-05-09 18:21 | XMS_ITS | Encounter Summary ---
Author Name Unknown Organization [facility] Address [address] [place] [address] Care Team Providers Care Burnisher And Bumper Name Role Phone Roderick Morelos MD Unavailable [phone] Magno Wood MD Unavailable [phone] Sophie Ocasio AuD Unavailable [phone] Henny Rosales RISK MANAGEMENT MANAGER TILE SETTER Unavailable Sharee Negron RD Unavailable Kaykay Duarte STUDENT OUTREACH COORDINATOR Primary Care Provider Christiane Rodríguez MD Unavailable [phone] Cehly FernandezC Unavailable [phone] Jing Cadena RISK MANAGEMENT MANAGER CNC CUTTING OPERATOR Unavailable Radha Lopez [facility] Unavailable [phone] Luis A Escobedo MD Unavailable [phone] Geri LozaC Unavailable [phone] Encounter Details Date Type Department Care Team (Late st Contact Info) Description 01/21/2023 Nabil Medical Advice [facility] [place] [phone] [facility] [address] [place] [address] Radha Dominguez, RN [address] [place] [address] [address] [place] [address] Social History Tobacco Use Types Packs/Day Years [...] Description 06/24/2023 12:30 PM CDT Virtual Visit [facility] [address] [phone] Geri Loza PA-C [address] [place] [address] [phone] 06/24/2023 1:00 PM CDT Virtual Visit [facility] Management [address] [phone] Sharee Negron, RD [address] [place] [address] [phone] documented as of this encounter Goals Goal [...] documented as of this encounter Care Teams Burnisher And Bumper Relationship Specialty Start Date End Date Kaykay Duarte STUDENT OUTREACH COORDINATOR [address] [place] [address] PCP - General 10/15/22 Roderick Morelos MD [address] [place] [address] Cardiovascular Disease 02/03/22 Magno Wood MD [address] [place] [address] 396 [place] [address] Otolaryngology 02/21/22 Sophie Ocasio AuD [address] [place] [address] [phone] Child Support Agent Audiology 02/21/22 Henny Rosales APRN TILE SETTER [address] [place] [phone] Assigned Heart and Vascular Provider 08/09/[address] [place] [address] [phone] Registered Dietitian Dietitian, Registered 09/02/22 Christiane Rodríguez MD [address] [place] [address] [phone] Otolaryngology 11/12/22 Chely Fernandez PA-C [address] [place] [address] [phone] Assigned Surgical Provider 11/29/22 02/06/23 Jing Cadena APRN CNC CUTTING OPERATOR [address] [place] [address] [phone] Clinical Nurse Specialist Anesthesiology 01/15/23 Radha Lopez [facility] [address] [place] [address] Pharmacist Pharmacist 01/16/23 Luis A Escobedo MD [address] [place] [address] 11497 Assigned Surgical Provider 02/07/23 04/15/23 Geri Loza PA-C [address] [place] [address] Assigned Surgical Provider 04/16/23 documented as of this encounter
--- OUTSIDE RECORDS SUMMARY | 2023-05-09 18:21 | XMS_ITS | Encounter Summary ---
Author Name Unknown Organization [place] Address [address] [place] [address] Care Team Providers Care Cyber Intel Planner Name Role Phone Roderick Morelos MD Unavailable [phone] Magno Wood MD Unavailable [phone] Sophie Ocasio AuD Unavailable [phone] Henny Rosales JUNIOR QA ANALYST BOTTLING ATTENDANT Unavailable [phone] Unavailable Kaykay Duarte STAINLESS STEEL FINISHER Primary Care Provider Christiane Rodríguez MD Unavailable [phone] Chely FernandezC Unavailable [phone] Jing Cadena JUNIOR QA ANALYST MANAGER MANUFACTURING Unavailable Radha Lopez [facility] Unavailable [phone] Encounter Details Date Type Department Care Team (Latest Contact Info) Description 01/29/2023 Travel Social History Tobacco Use Types Packs/Day [...] 06/24/2023 12:30 PM CDT Virtual Visit [facility] [address] [phone] Geri Loza PA-C [address] [place] [address] 06/24/2023 1:00 PM CDT Virtual Visit [facility] [address] [phone] Sharee Negron, ÁNGEL [address] [place] [address] [phone] documented as of this encounter Goals Goal [...] documented as of this encounter Care Teams Cyber Intel Planner Relationship Specialty [place] [address] [place] [address] PCP - General 10/15/22 Roderick Morelos MD [address] [place], [place] [phone] Cardiovascular Disease 02/03/22 Magno Wood MD [address] [place] [address] [address] [place] [address] Otolaryngology 02/21/22 AmarjitSophie AuD [address] [place] [address] Rib Puller Audiology 02/21/22 Henny Rosales APRN BOTTLING ATTENDANT [address] [place] [phone] Assigned Heart and Vascular Provider 08/09/[address] [place] [address] 132495 Registered Dietitian Dietitian, Registered 09/02/22 Christiane Rodríguez MD [address] [place] [address] [address] [place], [place] [phone] Otolaryngology 11/12/22 Chely Fernandez PA-C [address] [place] [address] 343165 Assigned Surgical Provider 11/29/22 02/06/23 Jing Cadena APRN MANAGER MANUFACTURING [address] [facility] [address] [place], [place] 169635 Clinical Nurse Specialist Anesthesiology 01/15/23 Radha Lopez [facility] [address] [place] [address] [phone] Pharmacist Pharmacist 01/16/23 documented as of this encounter
--- OUTSIDE RECORDS SUMMARY | 2023-05-09 18:21 | XMS_ITS | Encounter Summary ---
Author Name Unknown Organization [facility] Address [address] [place] [address] Care Team Providers Care Strategy Intern Name Role Phone Roderick Morelos MD Unavailable [phone] Magno Wood MD Unavailable [phone] Sophie Ocasio AuD Unavailable Henny Rosales PRESS BREAKER MOTOR COACH TOUR OPERATOR Unavailable Sharee Negron RD Unavailable Kaykay Duarte TRAINING TECHNICIAN Primary Care Provider Christiane Rodríguez MD Unavailable [phone] Jing Cadena PRESS BREAKER CHARITY FUNDRAISER Unavailable [phone] Radha Lopez [facility] Unavailable Luis A Escobedo MD Unavailable Encounter Details Date Type Department Care Team (Late st Contact Info) Description 02/09/2023 Telephone [facility] [place] [id number] [facility] [address] 4th [place] [address] Radha Dominguez, RN 420 [facility] [address] [place] [address] Social History Tobacco Use Types [...] encounter Miscellaneous Notes * Telephone Encounter - SandyMoy lovetti - 02/09/2023 2:13 PM CST General Call Contacts Type Contact Phone/Fax 02/09/2023 02:13 PM PHOTOGRAPHIC LITHOGRAPHER Phone (Incoming) Billie Connolly (Self) [phone] () Reason for Call: Hotel recommendations What are your questions or concerns: pt would like to know if the hosp recommends any hotel or offers discounts [facility] or would you prefer to receive a phone call?: Patient would prefer a phone call Okay to leave a detailed message?: Yes at Cell number on file: Telephone Information: OGRAPHIC LITHOGRAPHER documented in this encounter Plan of Treatment Upcoming Encounters Date Type Department Care Team (Late st Contact Info) Description 06/24/2023 12:30 PM CDT Virtual Visit [facility] [address] [address] Geri Loza PA-C [address] [place] [address] [phone] 06/24/2023 1:00 PM CDT Virtual Visit [facility] [address] [address] Sharee Negron, ÁNGEL [address] [place] [address] 109115 documented as of this encounter Goals Goal [...] documented as of this encounter Care Teams Strategy Intern Relationship Specialty Start Date End Date Kaykay Duarte TRAINING TECHNICIAN [address] [place] [address] PCP - General 10/15/22 Roderick Morelos MD [address] [place], [place] 139585 Cardiovascular Disease 02/03/22 Magno Wood MD [address] [place] [address] Otolaryngology 02/21/22 Sophie Ocasio AuD [address] [place] [address] [phone] Electrical Instrument Technician Audiology 02/21/22 Henny Rosales APRN MOTOR COACH TOUR OPERATOR [address] [place] [phone] Assigned Heart and Vascular Provider 08/09/[address] [place] [address] [phone] Registered Dietitian Dietitian, Registered 09/02/22 Christiane Rodríguez MD [address] [place] [address] 442565 Otolaryngology 11/12/22 Jing Cadena, PRESS BREAKER CHARITY FUNDRAISER [address] [address] Clinical Nurse Specialist Anesthesiology 01/15/23 Radha Lopez, [facility] [address] [place] [address] [phone] Pharmacist Pharmacist 01/16/23 Luis A Escobedo MD [address] [phone] Assigned Surgical Provider 02/07/23 04/15/23 documented as of this encounter
--- OUTSIDE RECORDS SUMMARY | 2023-05-09 18:21 | XMS_ITS | Encounter Summary ---
Author Name Unknown Organization [facility] Address [address] [place] [address]. [place] [address] Care Team Providers Care Trim Sawyer Name Role Phone Roderick Morelos MD Unavailable [phone] Magno Wood MD Unavailable [phone] Sophie Ocasio AuD Unavailable Henny Rosales CONTROL ROOM TENDER TAX ATTORNEY Unavailable Sharee Negron RD Unavailable Kaykay Duarte STOCKROOM ASSOCIATE Primary Care Provider Christiane Rodríguez MD Unavailable Chely FernandezC Unavailable [phone] Jing Cadena CONTROL ROOM TENDER HYDRO ELECTRIC STATION OPERATOR Unavailable Radha Lopez [facility] Unavailable Reason for Visit * Reason Onset Date Comments Clinic Care Coordination - Follow-up 01/29/2023 Encounter Details Date Type Department Care Team (Late st Contact Info) Description 01/29/2023 Telephone [facility] [address] [facility] [address] 4th [place] [address] Radha Dominguez, RN 420 [facility] [address] [place] [address] Clinic Care Coordination - Follow-up Social History Tobacco Use Types Packs/Day Years [...] encounter Miscellaneous Notes * Telephone Encounter - Radha Dominguez RN - 01/29/2023 10:12 AM NURSE OFFICE Left a message for patient to call Edgar at [phone] to confirm surgery date with Dr Escobedo for Thu03/18/23 or Thursday03/20/[address] Escobedo's request. E OFFICE documented in this encounter Plan of Treatment Upcoming Encounters Date Type Department Care Team (Late st Contact Info) Description 06/24/2023 12:30 PM CDT Virtual Visit [facility] [address] [address] Geri Loza PA-C [address] [place] [address] [phone] 06/24/2023 1:00 PM CDT Virtual Visit [facility] Weight Management [address] [phone] Sharee Negron, RD [address] [place] [address] [phone] documented as of this encounter Goals Goal [...] documented as of this encounter Care Teams Trim Sawyer Relationship Specialty [place] [address] [place] [address] PCP - General 10/15/22 Roderick Morelos MD [address] [place] [address] Cardiovascular Disease 02/03/22 Magno Wood MD [address] [place] [address] [phone] Otolaryngology 02/21/22 Sophie Ocasio AuD [address] [place] [address] [phone] Pick Up Man Audiology 02/21/22 Henny Rosales APRN TAX ATTORNEY [address] [place] [address] Assigned Heart and Vascular Provider 08/09/[address] [place] [address] [phone] Registered Dietitian Dietitian, Registered 09/02/22 Christiane Rodríguez MD [address] [place] [address] [phone] Otolaryngology 11/12/22 Chely Fernandez PA-C [address] [place] [address] [phone] Assigned Surgical Provider 11/29/22 02/06/23 Jing Cadena APRN HYDRO ELECTRIC STATION OPERATOR [address] [place] [address] 450 [place], [place] [phone] Clinical Nurse Specialist Anesthesiology 01/15/23 Radha Lopez [facility] [address] [place] [address] [phone] Pharmacist Pharmacist 01/16/23 documented as of this encounter
--- OUTSIDE RECORDS SUMMARY | 2023-05-09 18:21 | XMS_ITS | Encounter Summary ---
Author Name Unknown Organization [facility] Address [address] [place] [address] Care Team Providers Care Outbound Call Center Representative Name Role Phone Roderick Morelos MD Unavailable [phone] Magno Wood MD Unavailable [phone] Sophie Ocasio AuD Unavailable Henny Rosales BUSINESS DEVELOPMENT ASSOCIATE MASTER PLUMBER Unavailable Sharee Negron RD Unavailable Kaykay Duarte LINUX NETWORK ENGINEER Primary Care Provider [phone] Christiane Rodríguez MD Unavailable Chely Fernandez PA-C Unavailable [phone] Jing Cadena BUSINESS DEVELOPMENT ASSOCIATE MARSH BUGGY OPERATOR Unavailable Radha Lopez [facility] Unavailable [phone] Reason for Visit * Reason Comments RECHECK Encounter Details Date Type Department Care Team (Latest Contact Info) Description 02/06/2023 9:30 AM REHABILITATOR Virtual Visit [facility] [address] [place] [address] Sharee Negron, RD [address] [place] [address] Nutritional counseling (Primary Dx); S/P laparoscopic [...] - - Weight 132 kg (291 lb) 02/06/2023 9:16 AM REHABILITATOR Height 167.6 cm (5' 6) 02/06/2023 9:16 AM REHABILITATOR Body Mass Index 46.97 02/06/2023 9:16 AM REHABILITATOR documented in this encounter Patient Instructions * Patient Instructions* Sharee Negron, ÁNGEL - 02/06/2023 9:30 AM REHABILITATOR Goals after surgery: 1. Follow the bariatric post-op diet advancement schedule (see below) 2. Sip on 48-64 oz (or greater) fluids daily, recording intake to help stay on-track. - Drink at least 1-2 oz of fluid every 15-30 min. 3. Stop vitamins/minerals 1 week before surgery. We will discuss starting a chewable multivitamin at the one week post-op visit. 4. Work towards consuming 60 gm protein daily. Post-op Diet Advancement Schedule: Clear Liquid Diet (stage 1): START March 17 Low-Fat Full Liquid Diet (stage 2): START March 19 Pureed Diet (stage 3): START April 01 Soft Diet (stage 4): START April 15 Regular Diet (stage 5): START May 13 Post-op Diet Handouts: Diet Guidelines after Weight-loss Surgery [email or web address] Your Stage 1 Diet: Clear Liquids [email or web address] Your Stage 2 Diet: Low-fat Full Liquids [email or web address] Your Stage 3 Diet: Pureed Foods [email or web address] Pureed Recipes [email or web address] Your Stage 4 Diet: Soft Foods [email or web address] Your Stage 5 Diet: Regular Foods [email or web address] Supplements after Sleeve Gastrectomy, Gastric Bypass or Single Anastomosis Duodenal Switch [email or web address] Keeping Track of Fluids [email or web address] Follow-Ups: 1 week post op SIVA Terrazas (Duncan), ÁNGEL, LD Clinic #: [phone] BILITATOR documented in this encounter Progress Notes * Sharee Negron RD - 02/06/2023 9:30 AM CST Video-Visit Details Type of service: Video Visit Video Start Time: 9:30 am Video End Time: 9:55 am Originating Location (pt. Location): Home Distant Location (provider location): Offsite (providers home) Platform used for Video Visit: [facility] Nutrition Assessment Reason For Visit: Billie Connolly is a 52 year old female presents today for a bariatric nutrition visit and nutritioneducation regarding clear and low-fat full liquid diet for post-bariatric surgery. Pt interested inconversion of SG to RNYGB with Dr. Escobedo with expected surgery in Feb 2023. Patient referred by Geri Loza PA-C on August 15, 2022. Patient with Co-morbidities of obesity including: Type II DM Sleep apnea Joint pain - chronic right hip pain GERD PMH: hypothyroidism, SVT, RLS Anthropometrics: Pre-op Weight: 338 lbs Weight 08/15/22: 309 lbs Estimated body mass index is 46.97 kg/m?? as calculated from the following: Height as of this encounter: 1.676 m (5' 6). Weight as of this encounter: 132 kg (291 lb). Current weight: 291 lbs Goal weight for surgery: 289 lbs or less Medications for weight loss: Orlistat added 09/02/22 - Denied, doing OTC Ally instead. Carie - has type 2 diabetes Current Vitamins/Minerals: SL B12 500 mcg daily [place] with iron 2 chews daily Vitamin D 5,000 international unit(s)/day *Check in on calcium intake post op. Will add if needed Labs: 08/20/22 A1C 7.2 TSH elevated 10/23/22 Vit D low at 26 - Started taking Vitamin D since then TSH elevated PTH WNL 12/23/22 Low TSH - Endo is managing A1C 6.4 Nutrition History: NKFA Not huge on fish/seafood - does eat tuna Pt with hx of sleeve interested in conversion to DS or RNYGB due to weight status and symptoms of GERD. Recommended 6 months of MWM with meds before considering revision. Started on omeprazole 08/15/22 for GERD symptoms including burning in chest/throat. Symptoms improving a little per pt Please see previous RD notes for more detail. 11/03/22: Started Ally since last visit. Stopped for time being due to covid. Following Dr. Levy torres - eating mostly protein, vegetables and some fruit. Has had some beans as well. Got some protein shakes to help supplement. Will have for breakfast or if really hungry between meals. Down 7 lbs. Eating until full. Nov 2022: Doing well on Ally. No vomiting since starting and reflux has significantly improved. Continuing to lose weight. Did gain some over weekend - was out of town and eating out more often. Didn't bring Ally with, wasn't sure what bathroom situation would be like. Continues with Dr. Escobedo's fork diet Dec 2022: Reflux has been well managed with meds - not noticing any symptoms. Doing well with weight loss - down about 18 lbs. Gained a little while traveling - less control over food. Following a low to no carb diet. Reviewed recommendations of 50 g bare minimum. Trying to aim for 60-80 grams of protein/day. Eating 3 meals/day, little to no snacks. Will have protein shakes instead of a meal if forgetting. Jan 2023: Completed post op diet education today. Answered pt questions. Additional information: FT - Illustrator Set Activity: limited by pain (needs hip replacement) Nutrition Prescription: Grams Protein: 60 (minimum) Amount of Fluid: 48-64 oz Nutrition Diagnosis Obesity related to positive energy balance AEB BMI > 30 AND Food- and Nutrition-related knowledge deficit r/t lack of prior exposure to information AEB pt scheduled for upcoming bariatric surgery and pt interest in diet education/review INTERVENTION: Intervention Provided/Education Provided/Reviewed previous goals and encouraged patient to continuegoals prior to surgery. Provided instruction on bariatric clear and low-fat full liquid diets. Provided the following handouts: Diet Guidelines for Bariatric Surgery, Your Stage 1-5 Diet, Keeping Track of Your Fluids, list of recommended vitamin/mineral supplementation after sleeve gastrectomysurgery and RD contact information. Expected Engagement: good Goals after surgery: 1. Follow the bariatric post-op diet advancement schedule (see below) 2. Sip on 48-64 oz (or greater) fluids daily, recording intake to help stay on-track. - Drink at least 1-2 oz of fluid every 15-30 min. 3. Stop vitamins/minerals 1 week before surgery. We will discuss starting a chewable multivitamin at the one week post-op visit. 4. Work towards consuming 60 gm protein daily. Post-op Diet Advancement Schedule: Clear Liquid Diet (stage 1): START March 17 Low-Fat Full Liquid Diet (stage 2): START March 19 Pureed Diet (stage 3): START April 01 Soft Diet (stage 4): START April 15 Regular Diet (stage 5): START May 13 Post-op Diet Handouts: Diet Guidelines after Weight-loss Surgery [email or web address] Your Stage 1 Diet: Clear Liquids [email or web address]://[email or web address] Your Stage 2 Diet: Low-fat Full Liquids [email or web address]://[email or web address]/[email or web address] Your Stage 3 Diet: Pureed Foods [email or web address]://[email or web address]/[email or web address] Pureed Recipes [email or web address]://[email or web address]/[email or web address] Your Stage 4 Diet: Soft Foods [email or web address]://[email or web address]/[email or web address] Your Stage 5 Diet: Regular Foods [email or web address]://[email or web address]/[email or web address] Supplements after Sleeve Gastrectomy, Gastric Bypass or Single Anastomosis Duodenal Switch [email or web address]://[email or web address] Keeping Track of Fluids [email or web address] Follow-Ups: 1 week post op Time spent with patient: 25 minutes. SIVA Terrazas, RD, LD BILITATOR documented in this encounter Nursing Notes * Daljit Enamorado - 02/06/2023 9:30 AM CST Is the patient currently in the state of [place]? YES Visit mode:VIDEO If the visit is dropped, the patient can be reconnected by: VIDEO VISIT: Text to cell phone: Telephone Information: Will anyone else be joining the visit? NO (If patient encounters technical issues they should call [phone] :[phone]) How would you like to obtain your AVS? MyChart Are changes needed to the allergy or medication list? No Reason for visit: RECHECK Pt states 3/10 R hip pain (chronic) today. Daljit Enamorado VVF BILITATOR documented in this encounter Plan of Treatment Upcoming Encounters Date Type Department Care Team (Late st Contact Info) Description 06/24/2023 12:30 PM CDT Virtual Visit [facility] [address] [phone] Geri Loza PA-C [address] [place] [address] [phone] 06/24/2023 1:00 PM CDT Virtual Visit [facility] [address] [phone] [place] [address] [phone] documented as of this encounter Goals Goal [...] without long-term current use of insulin (H) Gastroesophageal reflux disease with esophagitis, unspecified whether hemorrhage documented in this encounter Additional Health Concerns Problem Noted Date Diagnosed Date BRIAN PATHWAY SURGERY IS SCHEDULED 10/15/2022 documented as of this encounter Care Teams Outbound Call Center Representative Relationship Specialty Start Date End Date Kaykay Duarte, GUILLERMO [address] [place] [address] PCP - General 10/15/22 Roderick Morelos MD [address] [place], [place] 15[address]85 Cardiovascular Disease 02/03/22 Magno Wood MD [address] [place] [address] [phone] Otolaryngology 02/21/22 Sophie Ocasio AuD [address] [place] [address] [phone] Basketball Scout Audiology 02/21/22 Henny Rosales APRN MASTER PLUMBER [address] [place] [phone] Assigned Heart and Vascular Provider 08/09/[address] [place] [address] [phone] Registered Dietitian Dietitian, Registered 09/02/22 Christiane Rodríguez MD [address] [place] [address] [address] [place], [place] 594995 Otolaryngology 11/12/22 Chely Fernandez PA-C [address] [place] [address] [phone] Assigned Surgical Provider 11/29/22 02/06/23 Jing Cadena APRN MARSH BUGGY OPERATOR [address] [place] [address] [phone] Clinical Nurse Specialist Anesthesiology 01/15/23 Radha Lopez, [facility] [address] [place] [address] [phone] Pharmacist Pharmacist 01/16/23 documented as of this encounter
--- OUTSIDE RECORDS SUMMARY | 2023-05-09 18:21 | XMS_ITS | Encounter Summary ---
Author Name Unknown Organization [facility] Address [address] [place] [address] Care Team Providers Care Deep Well Contractor Name Role Phone Roderick Morelos MD Unavailable [phone] Magno Wood MD Unavailable [phone] Sophie Ocasio AuD Unavailable Henny Rosales PREFABRICATED HOUSES TRIMMER HOME THEATRE TECHNICIAN Unavailable [phone] Unavailable Kaykay Duarte SIGNAL REPAIRER Primary Care Provider Christiane Rodríguez MD Unavailable Chely FernandezC Unavailable [phone] Jing Cadena PREFABRICATED HOUSES TRIMMER FINANCIAL QUANTITATIVE ANALYST Unavailable Radha Lopez [facility] Unavailable Encounter Details Date Type Department Care Team (Late st Contact Info) Description 01/29/2023 Telephone [facility] Management [facility] [address] [place] [address] Edgar Rothman Social History Tobacco [...] Notes * Telephone Encounter - Edgar Rothman Marisela - 01/29/2023 1:16 PM CST I called to check if patient did any of the 5 required phone calls. She has not. I left a VM message on Billie's cell stating that I would be sending the referral electronically today and to expect a phone call either today or tomorrow to get her registered. T DIRECTOR documented in this encounter Plan of Treatment Upcoming Encounters Date Type Department Care Team (Late st Contact Info) Description 06/24/2023 12:30 PM CDT Virtual Visit [facility] [address] [phone] Geri Loza PA-C [address] [place] [address] [phone] 06/24/2023 1:00 PM CDT Virtual Visit [facility] [address] [phone] Sharee Negron, RD [address] [place] [address] [phone] documented as of this encounter Goals Goal [...] documented as of this encounter Care Teams Deep Well Contractor Relationship Specialty [place] [address] [place] [address] PCP - General 10/15/22 Roderick Morelos MD [address] [place] [address] Cardiovascular Disease 02/03/22 Magno Wood MD [address] [place] [address] [phone] Otolaryngology 02/21/22 Sophie Ocasio AuD [address] [place] [address] [phone] Product Development Carpenter Audiology 02/21/22 Henny Rosales APRN HOME THEATRE TECHNICIAN [address] [place] [phone] Assigned Heart and Vascular Provider 08/09/[address] [place] [address] [phone] Registered Dietitian Dietitian, Registered 09/02/22 Christiane Rodríguez MD [address] [place] [address] [phone] Otolaryngology 11/12/22 Chely Fernandez PA-C [address] [place] [address] 355015 Assigned Surgical Provider 11/29/22 02/06/23 Jing Cadena APRN FINANCIAL QUANTITATIVE ANALYST NPI: [id number] [place] [address] Clinical Nurse Specialist Anesthesiology 01/15/23 Radha Lopez [facility] [address] [place] [address] Pharmacist Pharmacist 01/16/23 documented as of this encounter
--- OUTSIDE RECORDS SUMMARY | 2023-05-09 18:21 | XMS_ITS | Encounter Summary ---
Author Name Unknown Organization [facility] Address [address] [place] [address] Care Team Providers Care Repair Cameraman Name Role Phone Roderick Morelos MD Unavailable [phone] Magno Wood MD Unavailable [phone] Sophie Ocasio AuD Unavailable [phone] Henny Rosales CHAIR PAD MAKER SILK SCREEN PRINTER HELPER Unavailable Sharee Negron RD Unavailable Kaykay Duarte BATTERY WRECKER OPERATOR Primary Care Provider Christiane Rodríguez MD Unavailable [phone] Chely FernandezC Unavailable [phone] Jing Cadena CHAIR PAD MAKER WAD COMPRESSOR OPERATOR ADJUSTER Unavailable Radha Lopez [facility] Unavailable [phone] Luis A Escobedo MD Unavailable [phone] Geri Loza PA-C Unavailable [phone] Encounter Details Date Type Department Care Team (Late st Contact Info) Description 02/06/2023 Nabil Medical Advice [facility] Weight Management Clinic [address] 4th [place] [address] Kang Griffiths Social History Tobacco [...] Description 06/24/2023 12:30 PM CDT Virtual Visit [facility] [address] [phone] Geri Loza PA-C [address] [place] [address] [phone] 06/24/2023 1:00 PM CDT Virtual Visit [facility] [address] [phone] Sharee Negron, RD [address] [place] [address] documented as of this encounter Goals [...] documented as of this encounter Care Teams Repair Cameraman Relationship Specialty [place] [address] [place] [address] PCP - General 10/15/22 Roderick Morelos MD [address] [place] [address] Cardiovascular Disease 02/03/22 Magno Wood MD [address] [place] [address] 757255 Otolaryngology 02/21/22 Sophie Ocasio AuD [address] [place] [address] Hairspring I Inspector Audiology 02/21/22 Henny Rosales APRN SILK SCREEN PRINTER HELPER [address] [place] [address] Assigned Heart and Vascular Provider 08/09/[address] [place] [address] Registered Dietitian Dietitian, Registered 09/02/22 Christiane Rodríguez MD [address] [place] [address] Otolaryngology 11/12/22 Chely Fernandez PA-C [address] [place] [address] Assigned Surgical Provider 11/29/22 02/06/23 Jing Cadena APRN WAD COMPRESSOR OPERATOR ADJUSTER [address] [place] [address] Clinical Nurse Specialist Anesthesiology 01/15/23 Radha Lopez, [facility] [address] [place] [address] Pharmacist Pharmacist 01/16/23 Luis A Escobedo MD [address] [place] [address] 195 [place], [place] 076645 Assigned Surgical Provider 02/07/23 04/15/23 Geri Loza PA-C [address] [place] [address] [phone] Assigned Surgical Provider 04/16/23 documented as of this encounter
--- OUTSIDE RECORDS SUMMARY | 2023-05-09 18:21 | XMS_ITS | Encounter Summary ---
Author Name Unknown Organization [place] Address [address] [place] [address] Care Team Providers Care Hide Grader Name Role Phone Roderick Morelos MD Unavailable [phone] Magno Wood MD Unavailable [phone] Sophie Ocasio AuD Unavailable Henny Rosales RETORT FURNACE OPERATOR BANQUET KITCHEN SUPERVISOR Unavailable Sharee Negron RD Unavailable Kaykay Duarte ASSEMBLY LINE UPHOLSTERER Primary Care Provider Christiane Rodríguez MD Unavailable Chely Fernandez PA-C Unavailable [phone] Jing Cadena RETORT FURNACE OPERATOR LEATHER HEEL BREASTER Unavailable Radha Lopez [facility] Unavailable [phone] Reason for Visit * Reason Comments Medication Therapy Management Encounter Details Date Type Department Care Team (Latest Contact Info) Description 01/27/2023 9:00 AM CLIENT EXPERIENCE SPECIALIST Virtual Visit [facility] [address] [place] [address] Radha Lopez, [address] [address] S/P laparoscopic sleeve gastrectomy (Primary Dx); Type 2 diabetes mellitus without complication, without long-term current use of insulin (H); Mixed hyperlipidemia; Hypothyroidism, unspecified type; Gastroesophageal reflux disease with esophagitis, unspecified whether hemorrhage; Chronic low back pain, unspecified back pain laterality, unspecified whether sciatica present; Moderate persistent asthma with acute exacerbation; Restless legs syndrome Social History Tobacco Use Types Packs/Day Years [...] - Inhaled Oxygen Concentration - - Weight 131.5 kg (290 lb) 01/27/2023 8:34 AM CLIENT EXPERIENCE SPECIALIST Height 167.6 cm (5' 6) 01/27/2023 8:34 AM CLIENT EXPERIENCE SPECIALIST Body Mass Index 46.81 01/27/2023 8:34 AM CLIENT EXPERIENCE SPECIALIST documented in this encounter Patient Instructions * Patient Instructions* Radha Lopez, [facility] - 01/27/2023 9:00 AM CLIENT EXPERIENCE SPECIALIST Recommendations from today's MTM visit: Hold Mounjaro at least 1 week before surgery. Do not restart after surgery. Check sugars 2-3 times per week, AM fasting post Gastric Bypass Alter the following medications after Gastric Bypass: Omeprazole: Open capsule and sprinkle contents over 1 tablespoon of applesauce, yogurt or sugar free pudding and swallow immediately (do not chew). No NSAIDs (Non-Steroidal Anti-Inflammatory Drugs) after gastric bypass - meaning no celecoxib (celebrex), ibuprofen, naproxen, Aleve, Advil, Motrin post- operatively - these medications can negativelyimpact the gut lining. Can use acetaminophen post op. Do not exceed 4000 mg/24 hour period. Oral dissolve powder Tylenol (acetaminophen) packets are available for use at retail stores or [employer] - each packet contains 500 mg acetaminophen. Can use this formulation for the first 3 months postop. Otherwise can cut acetaminophen tablets in half and swallow both halves for dose. Get TSH labs repeated 8 weeks after dose change - defer to primary care provider Hold all supplements 1 week before surgery. Restart bariatric multivitamin with iron 1 week post Gastric Bypass and start chewable calcium/vitamin D 1 month post Gastric Bypass. Follow-up: Return in about 12 weeks (around 04/21/2023) for Medication Therapy Management PharmacistVisit. It was great speaking with you today. I value your experience and would be very thankful for your time in providing feedback in our clinic survey. In the next few days, you may receive an email or text message from [employer] with a link to a survey related to your ???clinical pharmacist. To schedule another appointment with your [facility] pharmacist, please call [facility] Scheduling at . My Clinical Pharmacist's contact information: Please feel free to contact me with any questions or concerns you have. Radha Lopez, PharmD Medication Therapy Management Pharmacist [facility] Chewable Multivitamin Options for After Surgery: Bariatric Ship & Duck Advanced Multi EA chewable: https://www.525j.com.cn.[employer]/item/wkvvfkjz-rxmvxukc-pdfkc-ea Take 2 chews daily. Additional calcium citrate supplement needed. - Validation code for Discount on Bariatric Advantage vitamin/mineral supplements: FSWLSBA Celebrate Multi Complete 60: https://[employer]/products/isnrq-yqxsvzvt-62?dgvfngd=7977624875589 Take 2 chews daily. Additional calcium citrate supplement needed. Optifast Bariatric Multivitamin https://www.Hoodinn.[employer]/uyzwamvzn-hhdi-vcumxrhil-ncgfjsye-cjtobdg-x ib-lkidhes-rrqbbmjpwl.html Take 2 chews twice per day. Additional iron supplement needed (take at separate time from multivitamins) Chewable Calcium Options for After Surgery: Bariatric Advantage Calcium Citrate Chewy Bites 500 MG https://www.525j.com.cn.[employer]/item/calcium_citrate_chewy_bites_500mg Take 1 chew by mouth twice daily - Discount code for Bariatric Advantage vitamin/mineral supplements: UOFMINN (for 15% off order) Celebrate Calcium Citrate Soft Chew https://[employer]/products/xbfexcs-wixxrdz-czds-chew ?szkujxa=00680689059697 Take 1 chew by mouth twice daily Celebrate Calcium Plus 500 Chewable https://[employer]/products/rumlbqy-ldrhtri-rczumkcz? coavjie=3830678433432 Take 1 chew by mouth twice daily Barimelts Calcium Citrate https://www.[employer]/products/calcium-citrate Take 2 fast-melting tablets by mouth twice daily NT EXPERIENCE SPECIALIST documented in this encounter Progress Notes * Radha Lopez RPH - 01/27/2023 9:00 AM CST Virtual Visit Details Type of service: Video Visit Originating Location (pt. Location): Home Distant Location (provider location): Off-site Platform used for Video Visit: Stevie NT EXPERIENCE SPECIALIST * Radha Lopez RPH - 01/27/2023 9:00 AM CST Medication Therapy Management (MTM) Encounter ASSESSMENT: Medication Adherence/Access: No issues identified S/P Sleeve Gastrectomy with 03/18/2023 Conversion to Gastric Bypass: Assessed and discussed potential administration changes of medications and potential holding/adjustment of medications post cristina-en-y gastric bypass. An alternative administration plan was formulatedfor medications that were greater than approximately ~6-8 mm. Medication sizes were identified utilizing the medication's NDC # or drug identifier. Otherwise if medication size was not able to be identified, medications were compared to that of size of m&m for easy comparison for patient. Medications found to be larger than specified below (plan below in plan section): omeprazole Discussed no NSAIDs post op, can use acetaminophen post-operatively Per post-bariatric protocol, patient to hold all supplements 1 week before surgery. Post-bariatric vitamin regimen start will be discussed at 1 week post op dietitian follow up appointment. Multivitamin and Calcium supplementation should be in chewable formulation - encouraged multivitamin with iron formulations specifically for those with history of bariatric surgery. Diabetes A1c within goal < 7%. Would benefit from holding Mounjaro at least 1 week before surgery and notrestarting after surgery. Encouraged consistent checking of blood sugars after gastric bypass. Hyperlipidemia Would benefit from lipid panel repeat as not been checked since starting statin. Would benefit fromremaining on statin post upcoming surgery. Hypothyroidism: Patient would benefit from verifying what levothyroxine dose she was on and repeat TSH 8 weeks after last dose change. GERD: Stable. To complete EGD as ordered. Pain: Discussed no NSAIDs post surgery. RLS: Stable. Asthma: Stable. PLAN: Hold Mounjaro at least 1 week before surgery. Do not restart after surgery. Check sugars 2-3 times per week, AM fasting post Gastric Bypass Alter the following medications after Gastric Bypass: Omeprazole: Open capsule and sprinkle contents over 1 tablespoon of applesauce, yogurt or sugar free pudding and swallow immediately (do not chew). No NSAIDs (Non-Steroidal Anti-Inflammatory Drugs) after gastric bypass - meaning no celecoxib (celebrex), ibuprofen, naproxen, Aleve, Advil, Motrin post- operatively - these medications can negativelyimpact the gut lining. Can use acetaminophen post op. Do not exceed 4000 mg/24 hour period. Oral dissolve powder Tylenol (acetaminophen) packets are available for use at retail stores or [employer] - each packet contains 500 mg acetaminophen. Can use this formulation for the first 3 months postop. Otherwise can cut acetaminophen tablets in half and swallow both halves for dose. Get TSH labs repeated 8 weeks after dose change - defer to primary care provider Hold all supplements 1 week before surgery. Restart bariatric multivitamin with iron 1 week post Gastric Bypass and start chewable calcium/vitamin D 1 month post Gastric Bypass. Follow-up: Return in about 12 weeks (around 04/21/2023) for Medication Therapy Management PharmacistVisit. SUBJECTIVE/OBJECTIVE: Billie Connolly is a 52 year old female contacted via secure video for an initial visit. She was referred to me from Geri Loza PA-C. Reason for visit: comprehensive review of medications. Allergies/ADRs: Reviewed in chart Past Medical History: Reviewed in chart Tobacco: She reports that she has never smoked. She has never used smokeless tobacco. Alcohol: not currently using Medication Adherence/Access: Patient takes medications directly from bottles. Patient takes medications 2 time(s) per day. Per patient, misses medication 0 times per week. S/P Sleeve Gastrectomy with 03/18/2023 Conversion to Gastric Bypass: Vitamin SL B12 500 mcg once daily Chewable [place] with iron: 2 chewable tablets once daily Vitamin D 5000 international unit(s) daily Patient had sleeve gastrectomy in 07/2020. Has had persistent GERD since surgery and wishes to have conversion/revision. Does report today that her GERD is controlled. Also hoping for improved weight loss with conversion. Surgery scheduled for 03/03/2023. She does not complain of acid reflux on highdose PPI. She does not have issues with swallowing food/pills, but prefers to crush her pills before administration. Hemoglobin Date Value Ref Range Status 04/09/2022 14.1 11.7 - 15.7 g/dL Final 03/20/2020 12.6 11.7 - 15.7 g/dL Final Ferritin Date Value Ref Range Status 03/21/2020 854 (H) 10 - 130 ng/mL Final 03/19/2020 706 (H) 8 - 252 ng/mL Final Diabetes Mounjaro 15 mg once weekly Patient is not experiencing side effects. Blood sugar monitoring: never. Has glucometer at home for testing if need be. Current diabetes symptoms: none Diet/Exercise: Eating 3 meals daily. Eye exam in the last 12 months? No Foot exam: due Urine Albumin: No results found for: UMALCR 12/23/2022 Care Everywhere: A1c 6.4% Lab Results Component Value Date A1C 10.8 (H) 10/30/2021 Hyperlipidemia Atorvastatin 40mg daily Patient reports no significant myalgias or other side effects. Statin started after last labs in October. The ASCVD Risk score (Radha DK, et al., 2019) failed to calculate for the following reasons: The valid total cholesterol range is 130 to 320 mg/dL 10/23/2022 Care Everywhere Lab 3 mo ago Cholesterol 0 - 199 mg/dL 322 High Triglyceride <=149 mg/dL 205 High HDL Cholesterol >=40 mg/dL 46 LDL, Calculated <130 mg/dL 235 High Non HDL Chol, Calculated <=159 mg/dL 276 High Cholesterol/HDL Ratio 7. Recent Labs Lab Test 10/23/22 1120 TRIG 205* Hypothyroidism: Levothyroxine 200 mcg daily Patient is having the following symptoms: none. Reports levothyroxine was adjusted in August then TSHbecame elevated then adjusted again and now TSH is low. She is unsure what levothyroxine dose she is on, believes it is 200 mcg. She reports adherence. Does not take with iron or calcium containing products/food. GERD: Omeprazole 40 mg twice daily Reports when she forgets medications has unmanageable issues. Patient reports no current symptoms. Recommended to have EGD completed again. Patient feels that current regimen is effective. The patient does not have a history of GI bleed. Pain: Celecoxib 200 mg twice daily as needed Uses very sparingly due to hip replacement and pain. RLS: Ropinirole 2 mg twice daily (~12-3 pm and bedtime) Gabapentin 600 mg bedtime and 100 mg three times daily as needed Has RLS throughout the day. Doesn't typically use the Gabapentin as needed dosing, solely bedtime dosing. 10/23/2022: Ferritin 88 Asthma: Flovent 2 puffs twice daily - not using Albuterol (ProAir/Ventolin/Proventil) Patient reports no current medication side effects. Does not use Flovent daily or recently. Reportsonly having asthma symptoms when sick. Will use Flovent during that time only. Doesn't have issues on day to day otherwise. Triggers include: upper respiratory infections. Patient reports the following symptoms: none. Today's Vitals: Ht 5' 6 (1.676 m) Wt 290 lb (131.5 kg) BMI 46.81 kg/m?? I spent 30 minutes with this patient today. All changes were made via collaborative practice agreement with Geri Loza PA-C. A copy of the visit note was provided to the patient's provider(s). A summary of these recommendations available via clinic portal. Radha Lopez, [place], BCACP Medication Therapy Management Pharmacist [facility] Telemedicine Visit Details Type of service: Telephone visit Start Time: 9:00 AM End Time: 9:30 AM Medication Therapy Recommendations Chronic low back pain Current Medication: celecoxib (CELEBREX) 200 MG capsule Rationale: Unsafe medication for the patient - Adverse medication event - Safety Recommendation: Discontinue Medication Status: Contact Provider - Awaiting Response Class 3 severe obesity with serious comorbidity and body mass index (BMI) of 45.0 to 49.9 in adult,unspecified obesity type (H) Current Medication: tirzepatide (MOUNJARO) 15 MG/0.5ML pen Rationale: Nonmedication therapy more appropriate - Unnecessary medication therapy - Indication Recommendation: Discontinue Medication Status: Accepted per CPA Gastroesophageal reflux disease with esophagitis Current Medication: omeprazole (PRILOSEC) [address] capsule Rationale: Cannot swallow/administer medication - Adherence - Adherence Recommendation: Provide Education Status: Patient Agreed - Adherence/Education S/P laparoscopic sleeve gastrectomy Rationale: More effective medication available - Ineffective medication - Effectiveness Recommendation: Change Medication - CELEBRATE MULTI-COMPLETE 60 PO Status: Accepted - no CPA Needed NT EXPERIENCE SPECIALIST documented in this encounter Nursing Notes * Daljit Enamorado - 01/27/2023 9:00 AM CST Is the patient currently in the state [facility]? YES Visit mode:VIDEO If the visit is dropped, the patient can be reconnected by: VIDEO VISIT: Text to cell phone: Telephone Information: Will anyone else be joining the visit? NO (If patient encounters technical issues they should call [phone] :[phone]) How would you like to obtain your AVS? MyChart Are changes needed to the allergy or medication list? No Reason for visit: RECHECK Daljit Enamorado VVF NT EXPERIENCE SPECIALIST documented in this encounter Plan of Treatment Upcoming Encounters Date Type Department Care Team (Late st Contact Info) Description 06/24/2023 12:30 PM CDT Virtual Visit [facility] [address] [phone] Geri Loza PA-C [address] [place] [phone] 06/24/2023 1:00 PM CDT Virtual Visit [facility] [address] [address] Sharee Negron, RD [address] [place] [address] [place] [address] documented as of this encounter Goals Goal Patient Goal Type Associated Problems Recent Progress Patient-Stated? Author BRIAN PATHWAY SURGERY IS SCHEDULED Care Plan BRIAN PATHWAY SURGERY IS SCHEDULED No Luis A Escobedo MD documented as of this encounter Visit Diagnoses Diagnosis S/P laparoscopic sleeve gastrectomy- Primary Type 2 diabetes mellitus without complication, without long-term current use of insulin (H) Mixed hyperlipidemia Hypothyroidism, unspecified type Gastroesophageal reflux disease with esophagitis, unspecified whether hemorrhage Chronic low back pain, unspecified back pain laterality, unspecified whether sciatica present Moderate persistent asthma with acute exacerbation Restless legs syndrome Restless legs syndrome (RLS) documented in this encounter Additional Health Concerns Problem Noted Date Diagnosed Date BRIAN PATHWAY SURGERY IS SCHEDULED 10/15/2022 documented as of this encounter Care Teams Hide Grader Relationship Specialty [place] [address] [place] [address] PCP - General 10/15/22 Roderick Morelos MD [address] [place] [address] Cardiovascular Disease 02/03/22 Magno Wood MD [address] [place] [address] [address] [place], [place] [phone] Otolaryngology 02/21/22 Sophie Ocasio AuD [address] [place] [phone] Slab Lifting Engineer Audiology 02/21/22 Henny Rosales APRN BANQUET KITCHEN SUPERVISOR [address] [place] [phone] Assigned Heart and Vascular Provider 08/09/[address] [place], [place] [address] Registered Dietitian Dietitian, Registered 09/02/22 Christiane Rodríguez MD [address] [place] [address] [address] [place] [address] Otolaryngology 11/12/22 Chely Fernandez PA-C [address] [place] [address] Assigned Surgical Provider 11/29/22 02/06/23 Jing Cadena APRN LEATHER HEEL BREASTER [address] [place] [address] [address] [place] [address] Clinical Nurse Specialist Anesthesiology 01/15/23 aRdha Lopez RPH [address] [place] [address] Pharmacist Pharmacist 01/16/23 documented as of this encounter
--- OUTSIDE RECORDS SUMMARY | 2023-05-09 18:21 | XMS_ITS | Encounter Summary ---
Author Name Unknown Organization [place] Address [address] [place] [address] Care Team Providers Care Bottom Buffer Name Role Phone Roderick Morelos MD Unavailable [phone] Magno Wood MD Unavailable [phone] Sophie Ocasio AuD Unavailable [phone] Henny Rosales SCALE TANK OPERATOR CHEMICAL TREATMENT PLANT TECHNICIAN Unavailable [phone] Unavailable Kaykay Duarte DERMATOLOGIST Primary Care Provider [phone] Christiane Rodríguez MD Unavailable [phone] Chely FernandezC Unavailable [phone] Jing Cadena SCALE TANK OPERATOR LICENSED OCCUPATIONAL THERAPY ASSISTANT Unavailable Radha Lopez [facility] Unavailable [phone] Luis A Escobedo MD Unavailable [phone] Geri LozaC Unavailable [phone] Encounter Details Date Type Department Care Team (Late st Contact Info) Description 01/26/2023 MyC Medical Advice [facility] [address] [place] [address] [place], Henny, RN Social History Tobacco Use Types Packs/Day [...] [facility] [address] [address] Geri Loza PA-C [address] [place] [phone] 06/24/2023 1:00 PM CDT Virtual Visit [facility] [address] [phone] Sharee Negron, RD [address] [place] [phone] documented as of this encounter Goals Goal [...] documented as of this encounter Care Teams Bottom Buffer Relationship Specialty [place] [address] [place] [address] PCP - General 10/15/22 Roderick Morelos MD [address] [place] [address] Cardiovascular Disease 02/03/22 Magno Wood MD [address] [place] [address] [phone] Otolaryngology 02/21/22 Sophie Ocasio AuD [address] [place] [address] Exhibit Specialist Audiology 02/21/22 Henny Rosales APRN CHEMICAL TREATMENT PLANT TECHNICIAN [address] [place] [address] Assigned Heart and Vascular Provider 08/09/[address] [place] [address] Registered Dietitian Dietitian, Registered 09/02/22 Christiane Rodríguez MD [address] [place] [address] Otolaryngology 11/12/22 Chely Fernandez PA-C [address] [place] [address] Assigned Surgical Provider 11/29/22 02/06/23 Jing Cadena APRN LICENSED OCCUPATIONAL THERAPY ASSISTANT [address] [place] [address] Clinical Nurse Specialist Anesthesiology 01/15/23 Radha Lopez, [facility] [address] [place] [address] Pharmacist Pharmacist 01/16/23 Luis A Escobedo MD [address] [place] [address] [address] [place], [place] [address] Assigned Surgical Provider 02/07/23 04/15/23 Geri Loza PA-C [address] [place] [address] [phone] Assigned Surgical Provider 04/16/23 documented as of this encounter
--- OUTSIDE RECORDS SUMMARY | 2023-05-09 18:21 | XMS_ITS | Encounter Summary ---
Author Name Unknown Organization [place] Address [address] [place] [address] Care Team Providers Care Bell Cleaner Name Role Phone Roderick Morelos MD Unavailable [phone] Magno Wood MD Unavailable [phone] Sophie Ocasio AuD Unavailable [phone] Henny Rosales LIBRARY CIRCULATION DEPARTMENT CHIEF PHOTO LAB SPECIALIST Unavailable [phone] Unavailable Kaykay Duarte ABORIGINAL CEREMONIAL CELEBRANT Primary Care Provider Christiane Rodríguez MD Unavailable [phone] hCely FernandezC Unavailable [phone] Jing Cadena LIBRARY CIRCULATION DEPARTMENT CHIEF ARCHIVIST ECONOMIC HISTORY Unavailable Radha Lopez [facility] Unavailable [phone] Encounter Details Date Type Department Care Team (Latest Contact Info) Description 01/27/2023 Travel Social History Tobacco Use Types Packs/Day [...] 06/24/2023 12:30 PM CDT Virtual Visit [facility] [address] [phone] Geri Loza PA-C [address] [place] [address] 06/24/2023 1:00 PM CDT Virtual Visit [facility] [address] [address] Sharee Negron, ÁNGEL [address] [place] [phone] documented as of this encounter Goals Goal [...] documented as of this encounter Care Teams Bell Cleaner Relationship Specialty Start [place] [address] [place] [address] PCP - General 10/15/22 Roderick Morelos MD [address] [place], [place] [address] Cardiovascular Disease 02/03/22 Magno Wood MD [address] [place] [address] [address] [place] [address] Otolaryngology 02/21/22 AmarjitSophie AuD [address] [place] [address] Supervisor Tumbling And Rolling Audiology 02/21/22 Henny Rosales APRN PHOTO LAB SPECIALIST [address] [place] [phone] Assigned Heart and Vascular Provider 08/09/[address] [place] [phone] Registered Dietitian Dietitian, Registered 09/02/22 Christiane Rodríguez MD [address] [place] [address] [address] [place], [place] [phone] Otolaryngology 11/12/22 Chely Fernandez PA-C [address] [place] [address] [phone] Assigned Surgical Provider 11/29/22 02/06/23 Jing Cadena APRN ARCHIVIST ECONOMIC HISTORY [address] [facility] [address] [place], [place] [address] Clinical Nurse Specialist Anesthesiology 01/15/[address] [facility] [facility] [address] [place] [phone] Pharmacist Pharmacist 01/16/23 documented as of this encounter
--- OUTSIDE RECORDS SUMMARY | 2023-05-09 18:22 | XMS_ITS | Encounter Summary ---
Author Name Unknown Organization [facility] Address [address] [place] [address] 41388 Care Team Providers Care Child'S Nurse Name Role Phone Roderick Morelos MD Unavailable [phone] Magno Wood MD Unavailable [phone] Sophie Ocasio AuD Unavailable [phone] Henny Rosales JITTERBUG OPERATOR LEAD PERSON Unavailable [phone] Unavailable Kaykay Duarte GIFT SHOP ASSISTANT Primary Care Provider Christiane Rodríguez MD Unavailable [phone] Chely FernandezC Unavailable [phone] Jing Cadena JITTERBUG OPERATOR PHYSICIAN OFFICE SECRETARY Unavailable Radha Lopez [facility] Unavailable Luis A Escobedo MD Unavailable [phone] Geri Loza PA-C Unavailable [phone] Encounter Details Date Type Department Care Team (Late st Contact Info) Description 01/07/2023 [facility] [address] 4th [place] [address] Kang Griffiths Social History Tobacco [...] [facility] [address] [address] Geri Loza PA-C [address] [place] [address] [phone] 06/24/2023 1:00 PM CDT Virtual Visit [facility] [address] [phone] Sharee Negron, RD [address] [place] [address] documented as of this encounter Goals [...] documented as of this encounter Care Teams Child'S Nurse Relationship Specialty [place] [address] [place] [address] PCP - General 10/15/22 Roderick Morelos MD [address] [place] [address] Cardiovascular Disease 02/03/22 Magno Wood MD [address] [place] [address] 663735 Otolaryngology 02/21/22 Sophie Ocasio AuD [address] [place] [address] Welding Instructor Audiology 02/21/22 Henny Rosales APRN LEAD PERSON [address] [place] [address] Assigned Heart and Vascular Provider 08/09/[address] [place] [address] Registered Dietitian Dietitian, Registered 09/02/22 Christiane Rodríguez MD [address] [place] [address] Otolaryngology 11/12/22 Chely Fernandez PA-C [address] [place] [address] Assigned Surgical Provider 11/29/22 02/06/23 Jing Cadena APRN PHYSICIAN OFFICE SECRETARY [address] [place] [address] Clinical Nurse Specialist Anesthesiology 01/15/23 Rdaha Lopez, [facility] [address] [place] [address] Pharmacist Pharmacist 01/16/23 Luis A Escobedo MD [address] [place] [address] 195 [place], [place] 366735 Assigned Surgical Provider 02/07/23 04/15/23 Geri Loza PA-C [address] [place] [address] [id number] Assigned Surgical Provider 04/16/23 documented as of this encounter
--- OUTSIDE RECORDS SUMMARY | 2023-05-09 18:22 | XMS_ITS | Encounter Summary ---
Author Name Unknown Organization [facility] Address [address] [place] [address] Care Team Providers Care [employer] Police Name Role Phone Roderick Morelos MD Unavailable [phone] Magno Wood MD Unavailable [phone] Sophie Ocasio AuD Unavailable [phone] Henny Rosales CITIZENSHIP INSTRUCTOR MACHINE OPERATOR GENERAL Unavailable [phone] Unavailable Kaykay Duarte GREEN CHAIN PULLER Primary Care Provider Christiane Rodríguez MD Unavailable [phone] Chely Fernandez PA-C Unavailable [phone] Jing Cadena CITIZENSHIP INSTRUCTOR AUDIO PRODUCTION MANAGER Unavailable Radha Lopez [facility] Unavailable [phone] Luis A Escobedo MD Unavailable [phone] Geri Loza PA-C Unavailable [phone] Encounter Details Date Type Department Care Team (Late st Contact Info) Description 01/15/2023 Telephone [facility] [address] 4th [place] [address] Geri Loza PA-C [address] [place], [place] [phone] Social History Tobacco Use Types Packs/Day Years [...] Miscellaneous Notes * Telephone Encounter - Radha Lopez RPH - 01/20/2023 9:57 AM CDT Clinic Coordinators: Please call this patient and offer 2 or 2:30 pm on ThursdayFebruary 11 with me for pre-surgery appointment. Thank you. Radha Lopez, PharmD, BCACP Medication Therapy Management Pharmacist [facility] * Telephone Encounter - Tamera Bhardwaj - 01/15/2023 3:08 PM CDT Reason for Call: Other appointment Detailed comments: patient needs [place] visit before her 03/03 sleeve surgery, no appointments available. Phone Number Patient can be reached at: Cell number on file: Telephone Information: Best Time: any Can we leave a detailed message on this number? YES Call taken on 01/15/2023 at 3:08 PM by Tamera Bhardwaj documented in this encounter Plan of Treatment Upcoming Encounters Date Type Department Care Team (Late st Contact Info) Description 06/24/2023 12:30 PM CDT Virtual Visit [facility] [address] 4th [place] [address] Geri Loza PA-C [address] [place] [address] 06/24/2023 1:00 PM CDT Virtual Visit [facility] [place] 043439 [facility] 4th [place] [phone] Migdalia Sharee Jeremy, RD [address] [place] [address] documented as of this encounter Goals Goal [...] documented as of this encounter Care Teams [employer] Police Relationship Specialty [place] [address] [place] 358867 PCP - General 10/15/22 Roderick Morelos MD [address] [place] [address] Cardiovascular Disease 02/03/22 Magno Wood MD [address] [place] [address] 396 [place], [place] 631965 Otolaryngology 02/21/22 Sophie Ocasio AuD [address] [place] [address] 877915 Drainlayer Audiology 02/21/22 Henny Rosales APRN MACHINE OPERATOR GENERAL [address] [place] [phone] Assigned Heart and Vascular Provider 08/09/[address] [place] [address] [phone] Registered Dietitian Dietitian, Registered 09/02/22 Christiane Rodríguez MD [address] [facility] 396 [place], [place] 211215 Otolaryngology 11/12/22 Chely Fernandez PA-C [address] [place] [address] 078325 Assigned Surgical Provider 11/29/22 02/06/23 Jing Cadena, CITIZENSHIP INSTRUCTOR AUDIO PRODUCTION MANAGER [address] [place] [address] 450 [place], [place] 700205 Clinical Nurse Specialist Anesthesiology 01/15/23 Radha Lopez, [facility] [address] [place] [address] 180235 Pharmacist Pharmacist 01/16/23 Luis A Escobedo MD [address] [place] [address] 195 [place], [place] 400325 Assigned Surgical Provider 02/07/23 04/15/23 Geri Loza PA-C [address] [place] [address] 160155 Assigned Surgical Provider 04/16/23 documented as of this encounter
--- OUTSIDE RECORDS SUMMARY | 2023-05-09 18:22 | XMS_ITS | Encounter Summary ---
Author Name Unknown Organization [facility] Address [address] [place] [address] Care Team Providers Care Boarder Machine Name Role Phone Roderick Morelos MD Unavailable Magno Wood MD Unavailable [phone] Sophie Ocasio AuD Unavailable [phone] Henny Rosales LEGAL EDITOR SOAP TENDER Unavailable Sharee Negron [address] Unavailable Kaykay Duarte DATA CONVERSION ANALYST Primary Care Provider [phone] Christiane Rodríguez MD Unavailable [phone] Chely FernandezC Unavailable [phone] Jing Cadena LEGAL EDITOR SHEET METAL WELDER Unavailable Radha Lopez [facility] Unavailable [phone] Luis A Escobedo MD Unavailable [phone] Geri LozaC Unavailable [phone] Encounter Details Date Type Department Care Team (Late st Contact Info) Description 01/14/2023 [facility] [place] 937479 [facility] SE 4th [place] [address] Radha Dominguez, RN [address] [place] [address] 195 [place] [address] Social History Tobacco Use Types Packs/Day Years [...] Visit [facility] [address] [phone] Geri Loza PA-C [address] [place] [address] [phone] 06/24/2023 1:00 PM CDT Virtual Visit [facility] Management [address] [phone] Sharee Negron, RD [address] [place] [address] 507735 documented as of this encounter Goals Goal [...] documented as of this encounter Care Teams Boarder Machine Relationship Specialty Start Date End Date Kaykay Duarte DATA CONVERSION ANALYST [address] [place] [address] PCP - General 10/15/22 Roderick Morelos MD [address] [place] [address] Cardiovascular Disease 02/03/22 Magno Wood MD [address] [place] [address] 396 [place] [address] Otolaryngology 02/21/22 Sophie Ocasio AuD [address] [place] [address] [phone] Toy Assembler Audiology 02/21/22 Henny Rosales APRN SOAP TENDER [address] [place] [address] Assigned Heart and Vascular Provider 08/09/[address] [place] [address] [phone] Registered Dietitian Dietitian, Registered 09/02/22 Christiane Rodríguez MD [address] [place] [address] 895745 Otolaryngology 11/12/22 Chely Fernandez PA-C [address] [place] [address] 140385 Assigned Surgical Provider 11/29/22 02/06/23 Jing Cadena APRN SHEET METAL WELDER [address] [place] [address] [phone] Clinical Nurse Specialist Anesthesiology 01/15/23 Radha Lpoez [facility] [address] [place] [address]87[address] Pharmacist Pharmacist 01/16/23 Luis A Escobedo MD [address] [place] [address] Assigned Surgical Provider 02/07/23 04/15/23 Geri Loza PA-C [address] [place] [address] 95[address] Assigned Surgical Provider 04/16/23 documented as of this encounter
--- OUTSIDE RECORDS SUMMARY | 2023-05-09 18:22 | XMS_ITS | Encounter Summary ---
Author Name Unknown Organization [facility] Address [address] [place] [address] 0[address]20 Care Team Providers Care Medical Oncologist Name Role Phone Roderick Morelos MD Unavailable [phone] Magno Wood MD Unavailable [phone] Sophie Ocasio AuD Unavailable [phone] Henny Rosales FLOOR COVERING INSTALLER EXHIBITS CURATOR Unavailable Sharee Negron RD Unavailable Kaykay Duarte METALLOGRAPHY TEACHER Primary Care Provider Christiane Rodríguez MD Unavailable [phone] Chely FernandezC Unavailable [phone] Jing Cadena FLOOR COVERING INSTALLER FILLER SHAKER Unavailable Radha Lopez [facility] Unavailable Luis A Escobedo MD Unavailable [phone] Geri LozaC Unavailable [phone] Encounter Details Date Type Department Care Team (Late st Contact Info) Description 01/09/2023 [facility] Medical Advice [facility] [place] 670369 [facility] SE 4th [place] [address] Radha Dominguez, RN [address] [place] [address] 195 [place] [address] Social History Tobacco Use Types Packs/Day Years [...] [facility] [address] [phone] Geri Loza PA-C [address] [place] [address] 977365 06/24/2023 1:00 PM CDT Virtual Visit [facility] Weight Management [address] [phone] Sharee Negron, RD [address] [place] [address] 120255 documented as of this encounter Goals Goal [...] documented as of this encounter Care Teams Medical Oncologist Relationship Specialty Start Date End Date Kaykay Duarte METALLOGRAPHY TEACHER [address] [place] [address] PCP - General 10/15/22 Roderick Morelos MD [address] [place] [address] Cardiovascular Disease 02/03/22 Magno Wood MD [address] [place] [address] 396 [place] [address] Otolaryngology 02/21/22 Sophie Ocasio AuD [address] [place] [address] 916535 Geographic Information Systems Engineer Audiology 02/21/22 Henny Rosales APRN EXHIBITS CURATOR [address] [place] [address] Assigned Heart and Vascular Provider 08/09/[address] [place] [address] [phone] Registered Dietitian Dietitian, Registered 09/02/22 Christiane Rodríguez MD [address] [place] [address] 053955 Otolaryngology 11/12/22 Chely Fernandez PA-C [address] [place] [address] 424345 Assigned Surgical Provider 11/29/22 02/06/23 Jing Cadena APRN FILLER SHAKER [address] [place] [address] 926695 Clinical Nurse Specialist Anesthesiology 01/15/23 Radha Lopez [facility] [address] [place] [address]24 Pharmacist Pharmacist 01/16/23 Luis A Escobedo MD [address] [place] [address] Assigned Surgical Provider 02/07/23 04/15/23 Geri Loza PA-C [address] [place] [address] 11462 Assigned Surgical Provider 04/16/23 documented as of this encounter
--- OUTSIDE RECORDS SUMMARY | 2023-05-09 18:22 | XMS_ITS | Encounter Summary ---
Author Name Unknown Organization [facility] Address [address] [place] [address] 018[address] Care Team Providers Care Containers Sales Representative Name Role Phone Roderick Morelos MD Unavailable [phone] Magno Wood MD Unavailable [phone] Sophie Ocasio AuD Unavailable Henny Rosales ASSEMBLY TECHNICIAN DIRECTOR OF USER EXPERIENCE Unavailable Sharee Negron RD Unavailable Kaykay Duarte GRAPHICS SOFTWARE ENGINEER Primary Care Provider Christiane Rodríguez MD Unavailable Chely Fernandez PA-C Unavailable Jing Cadena ASSEMBLY TECHNICIAN COMPLAINT ADJUSTER Unavailable Radha Lopez [facility] Unavailable Encounter Details Date Type Department Care Team (Late st Contact Info) Description 01/16/2023 [facility] [address] [place] [address] Radha Lopez, [facility] 9[address] [place] [address] Social History Tobacco Use Types [...] * Telephone Encounter - Jeff Linares - 01/16/2023 12:29 PM CDT Hi Radha! Pt needs something (30 fine) before her neida surg on 03/03. Do you have anything hidden a week or so before? Thanks! -Jeff documented in this encounter Plan of Treatment Upcoming Encounters Date Type Department Care Team (Late st Contact Info) Description 06/24/2023 12:30 PM CDT Virtual Visit [facility] [address] [phone] Geri Loza PA-C [address] [place] [address] [phone] 06/24/2023 1:00 PM CDT Virtual Visit [facility] [address] [address] Sharee Negron, RD [address] [place] [address] [phone] documented as of this encounter Goals Goal Patient Goal Type Associated Problems Recent Progress Patient-Stated? Author NEIDA PATHWAY SURGERY IS SCHEDULED Care Plan NEIDA PATHWAY SURGERY IS SCHEDULED No Luis A Escobedo MD documented as of this encounter Visit Diagnoses Not on filedocumented in this encounter Additional Health Concerns Problem Noted Date Diagnosed Date NEIDA PATHWAY SURGERY IS SCHEDULED 10/15/2022 documented as of this encounter Care Teams Containers Sales Representative Relationship Specialty Start Date End Date Kaykay Duarte, GRAPHICS SOFTWARE ENGINEER [address] [place] [address] PCP - General 10/15/22 Roderick Morelos MD [address] [place] [address] Cardiovascular Disease 02/03/22 Magno Wood MD [address] [place] [address] 385225 Otolaryngology 02/21/22 Sophie Ocasio AuD [address] [place] [address] 401185 Hoop Riveting Machine Operator Audiology 02/21/22 Henny Rosales APRN DIRECTOR OF USER EXPERIENCE [address] [place] [address] Assigned Heart and Vascular Provider 08/09/[address] [place] [address] 035025 Registered Dietitian Dietitian, Registered 09/02/22 Christiane Rodríguez MD [address] [place] [address] 785985 Otolaryngology 11/12/22 Chely Fernandez PA-C [address] [place] [address] 435115 Assigned Surgical Provider 11/29/22 02/06/23 Jing Cadena APRN COMPLAINT ADJUSTER [address] [place] [address] 899455 Clinical Nurse Specialist Anesthesiology 01/15/23 Radha Lopez [facility] [address] [place] [address]1252 Pharmacist Pharmacist 01/16/23 documented as of this encounter
--- OUTSIDE RECORDS SUMMARY | 2023-05-09 18:22 | XMS_ITS | Encounter Summary ---
Author Name Unknown Organization [facility] Address [address] [place] [address]254 Care Team Providers Care Associate Theatre Professor Name Role Phone Roderick Morelos MD Unavailable [phone] Magno Wood MD Unavailable [phone] Sophie Ocasio AuD Unavailable [phone] Henny Rosales REEL WORKER LEGAL SUMMER INTERN Unavailable [phone] Unavailable Kaykay Duarte YARD BRAKEMAN Primary Care Provider [phone] Christiane Rodríguez MD Unavailable [phone] Chely FernandezC Unavailable [phone] Jing Cadena REEL WORKER FOOD PRODUCTION ASSOCIATE Unavailable [phone] Radha Lopez [facility] Unavailable [phone] Luis A Escobedo MD Unavailable [phone] Geri Loza PA-C Unavailable [phone] Encounter Details Date Type Department Care Team (Late st Contact Info) Description 01/12/2023 [facility] Medical Advice Initial Department [facility] Social History Tobacco Use Types Packs/Day Years [...] Description 06/24/2023 12:30 PM CDT Virtual Visit [facility] [address] [phone] Geri Loza PA-C [address] [place] [address] [phone] 06/24/2023 1:00 PM CDT Virtual Visit [facility] [address] [address] Sharee Negron, RD [address] [place] [address] [phone] documented as of this encounter Goals Goal [...] documented as of this encounter Care Teams Associate Theatre Professor Relationship Specialty Start Date End Date Kaykay Duarte, YARD [place] [address] [facility] [address] PCP - General 10/15/22 Roderick Morelos MD [address] [place] [address] Cardiovascular Disease 02/03/22 Magno Wood MD [address] [place] [address] 396 [place], [place] 239715 Otolaryngology 02/21/22 Sophie Ocasio AuD [address] [place] [address] 433125 Rn Tele Audiology 02/21/22 Henny Rosales, REEL WORKER LEGAL SUMMER INTERN [address] [place] [address] Assigned Heart and Vascular Provider 08/09/[address] [place] [address] [phone] Registered Dietitian Dietitian, Registered 09/02/22 Christiane Rodríguez MD [address] [place] [address] 396 [place], [place] 894255 Otolaryngology 11/12/22 Chely Fernandez PA-C [address] [place] [address] 738105 Assigned Surgical Provider 11/29/22 02/06/23 Jing Cadena, REEL WORKER FOOD PRODUCTION ASSOCIATE [address] [place] [address] 450 [place], [place] [phone] Clinical Nurse Specialist Anesthesiology 01/15/23 Radha Lopez, [facility] [address] [place] [address] 132655 Pharmacist Pharmacist 01/16/23 Luis A Escobedo MD [address] [address] Assigned Surgical Provider 02/07/23 04/15/23 Geri Loza PA-C [address] [place] [address] Assigned Surgical Provider 04/16/23 documented as of this encounter
--- OUTSIDE RECORDS SUMMARY | 2023-05-09 18:22 | XMS_ITS | Encounter Summary ---
Author Name Unknown Organization [facility] Address [address] [place] [address] 51486 Care Team Providers Care Parts Control Clerk Name Role Phone Roderick Morelos MD Unavailable [phone] Magno Wood MD Unavailable [phone] Sophie Ocasio AuD Unavailable [phone] Henny Rosales CORPORATE DEVELOPMENT INTERN CLIENT SUPPORT PROFESSIONAL Unavailable [phone] Unavailable Kaykay Duarte PEGGER Primary Care Provider Christiane Rodríguez MD Unavailable [phone] Chely FernandezC Unavailable [phone] Jing Cadena CORPORATE DEVELOPMENT INTERN DOUGHNUT ICER MACHINE Unavailable [phone] Radha Lopez [facility] Unavailable [phone] Luis A Escobedo MD Unavailable [phone] Geri Loza PA-C Unavailable [phone] Encounter Details Date Type Department Care Team (Late st Contact Info) Description 01/13/2023 MyC Medical Advice Initial Department [facility] [place] Social History Tobacco Use Types Packs/Day Years [...] Description 06/24/2023 12:30 PM CDT Virtual Visit [facility] [address] [phone] Geri Loza PA-C [address] [place] [address] [phone] 06/24/2023 1:00 PM CDT Virtual Visit [facility] [address] [address] Sharee Negron, RD [address] [place] [address] [phone] documented as of this encounter Goals Goal [...] documented as of this encounter Care Teams Parts Control Clerk Relationship Specialty Start Date End Date Kaykay Duarte, PEGGER [address] [place] [address] PCP - General 10/15/22 Roderick Morelos MD [address] [place] [address] Cardiovascular Disease 02/03/22 Magno Wood MD [address] [place] [address] 396 [place], [place] 174325 Otolaryngology 02/21/22 Sophie Ocasio AuD [address] [place] [address] 727465 Clinical Services Professional Audiology 02/21/22 Henny Rosales, CORPORATE DEVELOPMENT INTERN CLIENT SUPPORT PROFESSIONAL [address] [place] [address] Assigned Heart and Vascular Provider 08/09/[address] [place] [address] [phone] Registered Dietitian Dietitian, Registered 09/02/22 Christiane Rodríguez MD [address] [place] [address] 396 [place], [place] 010055 Otolaryngology 11/12/22 Chely Fernandez PA-C [address] [place] [address] 052615 Assigned Surgical Provider 11/29/22 02/06/23 Jing Cadena, CORPORATE DEVELOPMENT INTERN DOUGHNUT ICER MACHINE [address] [place] [address] 450 [place], [place] 107715 Clinical Nurse Specialist Anesthesiology 01/15/23 Radha Lopez, [facility] [address] [place] [address] 501355 Pharmacist Pharmacist 01/16/23 Luis A Escobedo MD [address] [address] Assigned Surgical Provider 02/07/23 04/15/23 Geri Loza PA-C [address] [place] [address] Assigned Surgical Provider 04/16/23 documented as of this encounter
--- OUTSIDE RECORDS SUMMARY | 2023-05-09 18:22 | XMS_ITS | Encounter Summary ---
Author Name Unknown Organization [facility] Address [address] [place] [address]. [place] [address] Care Team Providers Care Type Soldering Machine Tender Name Role Phone Roderick Morelos MD Unavailable [phone] Magno Wood MD Unavailable [phone] Sophie Ocasoi AuD Unavailable Henny Rosales APRN EQUINE SCIENCE INSTRUCTOR Unavailable Sharee Negron RD Unavailable Kaykay Duarte NP Primary Care Provider Christiane Rodríguez MD Unavailable Chely Fernandez PA-C Unavailable [phone] Encounter Details Date Type Department Care Team (Late st Contact Info) Description 01/12/[address] [facility] [address] 4th [place] [address] Radha Dominguez, RN 420 [facility] 195 [place] [address] Social History Tobacco Use Types [...] encounter Miscellaneous Notes * Telephone Encounter - Shari Esteban - 01/12/2023 7:08 AM CDT General Call Contacts Type Contact Phone/Fax 01/12/2023 07:08 AM CDT Phone (Incoming) Billie Connolly (Self) [phone] (M) Reason for Call: Upcoming appt What are your questions or concerns: pt has upcoming appt 02/[address] Escobedo and she wants to know if she can get in sooner Could [facility] or would you prefer to receive a phone call?: Patient would prefer a phone call Okay to leave a detailed message?: Yes at Cell number on file: Telephone Information: documented in this encounter Plan of Treatment Upcoming Encounters Date Type Department Care Team (Late st Contact Info) Description 06/24/2023 12:30 PM CDT Virtual Visit [facility] [address] [phone] Geri Loza PA-C [address] [place] [address] [phone] 06/24/2023 1:00 PM CDT Virtual Visit [facility] [address] [address] Sharee Negron, ÁNGEL [address] [place] [address] [phone] documented as of this encounter Goals Goal [...] documented as of this encounter Care Teams Type Soldering Machine Tender Relationship Specialty Start Date End Date Kaykay Duarte RECREATION FACILITY MANAGER [address] [place] [address] PCP - General 10/15/22 Roderick Morelos MD [address] [place] [address] Cardiovascular Disease 02/03/22 Magno Wood MD [address] [place] [address] 375345 Otolaryngology 02/21/22 Sophie Ocasio AuD [address] [place] [address] 999645 Hematologist Oncologist Audiology 02/21/22 Henny Rosales APRN EQUINE SCIENCE INSTRUCTOR [address] [place] [phone] Assigned Heart and Vascular Provider 08/09/[address] 9 [place], [place] 934745 Registered Dietitian Dietitian, Registered 09/02/22 Christiane Rodríguez MD [address] [place] [address] [phone] Otolaryngology 11/12/22 Chely Fernandez PA-C [address] [place] [address] Assigned Surgical Provider 11/29/22 02/06/23 documented as of this encounter
--- OUTSIDE RECORDS SUMMARY | 2023-05-09 18:22 | XMS_ITS | Encounter Summary ---
Author Name Unknown Organization [facility] Address [address] [place] [address] Care Team Providers Care Knifeman Name Role Phone Roderick Morelos MD Unavailable [phone] Magno Wood MD Unavailable [phone] Sophie Ocasio AuD Unavailable [phone] Henny Rosales APRN GEOMETRY TEACHER Unavailable [phone] Unavailable Kaykay Duarte WIRE TWISTER Primary Care Provider Christiane Rodríguez MD Unavailable [phone] Chely Fernandez PA-C Unavailable [phone] Reason for Referral * Consultation (Routine) - Pending Review Specialty Diagnoses / Procedures Referred By Contac t Referred To Contact Diagnoses Morbid obesity (H) Luis A Escobeod MD [address] [address] Phone: [phone] Referral ID Status Reason Start Date Expiration Date V isits Requested Visits Authorized [id number] Pending Review 01/14/2023 01/14/2024 1 1 Question Answer Does this visit require an anesthesia consult? Yes Evaluate for medical neccesity for one of the following co-morbidities: Other Other co-morbidities: Morbid Obesity H&P Completed by: Other - Use Comments - PAPC per criteria Additional Information: Case request to be entered after 01/29/23 visit for a 03/03/23 surgery conversion from a sleeve to another to be determined procedure Comments Does this visit require an Anesthesia consult? Yes - Evaluate for medical necessity related to one of the following conditions: Morbid Obesity H&P done by: PAC Surgeon: Dr Luis A Escobedo Please be aware that coverage of these services is subject to the terms and limitations of your health insurance plan. Call member services at your health plan with any benefit or coverage questions. Please bring the following to your appointment: >> Any x-rays, CTs or MRIs which have been performed. Contact the facility where they were done to arrange for pecan picker prior to your scheduled appointment. Any new CT, MRI or other procedures ordered by your specialist must be performed at a [facility] facility or coordinated by your clinic's referral office. >> List of current medications >> This referral request >> Any documents/labs given to you for this referral Reason for Visit * Reason Comments Clinic Care Coordination - Follow-up Encounter Details Date Type Department Care Team (Late st Contact Info) Description 01/14/[address] [facility] [address] 4th [place] [address] Radha Dominguez RN [address] [place] [address] Clinic Care Coordination - Follow-up Social History [...] Visit [facility] [address] [phone] Geri Loza PA-C 9 [place], [place] 616375 06/24/2023 1:00 PM CDT Virtual Visit [facility] [address] [phone] Sharee Negron, RD 909 [place] [address] Scheduled Referrals Name Type Priority Associated Diagnoses Orde r Schedule PAC Visit Referral (For [facility] Only) Referral Routine Morbid obesity [...] documented as of this encounter Care Teams Knifeman Relationship Specialty Start Date End Date Kaykay Duarte, WIRE TWISTER [address] [place] [address] PCP - General 10/15/22 Roderick Morelos MD [address] [place], [place] 7[address] Cardiovascular Disease 02/03/22 Magno Wood MD [address] [place] [address] [address] [place] [address] Otolaryngology 02/21/22 Sophie Ocasio AuD 9 [place] [address] Intervention Manager Audiology 02/21/22 Henny Rosales APRN GEOMETRY TEACHER [address] [place] [phone] Assigned Heart and Vascular Provider 08/09/[address] [place] [address] [phone] Registered Dietitian Dietitian, Registered 09/02/22 Christiane Rodríguez MD [address] [place] [address] 396 [place], [place] 745[address] Otolaryngology 11/12/22 Chely Fernandez PA-C [address] [place] [address] Assigned Surgical Provider 11/29/22 02/06/23 documented as of this encounter
--- OUTSIDE RECORDS SUMMARY | 2023-05-09 18:22 | XMS_ITS | Encounter Summary ---
Author Name Unknown Organization [facility] Address [address] [place] [address] Care Team Providers Care Orthopedics Pediatric Physician Name Role Phone Roderick Morelos MD Unavailable [phone] Magno Wood MD Unavailable [phone] Sophie Ocasio AuD Unavailable [phone] Henny Rosales TUBE BENDING MACHINE OPERATOR IRONER Unavailable [phone] Unavailable Kaykay Duarte SUPERVISOR BRINE Primary Care Provider Christiane Rodríguez MD Unavailable [phone] Chely FernandezC Unavailable [phone] Jing Cadena TUBE BENDING MACHINE OPERATOR ANIMAL RESEARCHER Unavailable Radha Lopez [facility] Unavailable Luis A Escobedo MD Unavailable [phone] Geri Loza PA-C Unavailable [phone] Reason for Visit * Reason Onset Date Comments Call Back 01/15/2023 See note. Encounter Details Date Type Department Care Team (Late st Contact Info) Description 01/15/2023 Telephone [facility] [address]th [place] [phone] Luis A Escobedo MD 420 [facility] 195 [place], [place] 578[address] Call Back (See note./) Social History Tobacco Use Types Packs/Day Years [...] encounter Miscellaneous Notes * Telephone Encounter - Kathy Monzon - 01/15/2023 3:09 PM CDT Radha Dominguez RN P Bariatric Scheduling Registration Pool; Edgar Rothman; Henny Arguello RN Mo Billie Freire Mohsen is having a sleeve gastrectomy conversion to another procedure with Dr Escobedo on 03/03/23. (I will have details to submit the case request after 01/29/23) Please call to schedule now, to get the appointments on her calendar: POSTOP APPTS ___Post-op appointments for 1 week, 31+ days and 3 months after surgery with their dietitian. ___Post-op appointments for 1 week, 31+ days and 3 months after surgery with a provider. PRE-SURGERY APPTS ___Pre-surgery pharmacist visit with Radha Marte. Feel free to contact me if you have any questions or updates. Please contact Daisy Huynh, clinical specialist vascular, if clinic appt slots are not available. Henny, The patient has been informed that you will contact them about the preop class. Thank you! SKIP Wheeler, MS, field mechanical meter tester Weight Management Nurse Coordinator MyChart messages to P Surgery Clinic W[facility] Nurses - Contact Center Nurse Line and Clinic [phone] documented in this encounter Plan of Treatment Upcoming Encounters Date Type Department Care Team (Late st Contact Info) Description 06/24/2023 12:30 PM CDT Virtual Visit [facility] [address] [phone] Geri Loza PA-C [address] [place] [address] [phone] 06/24/2023 1:00 PM CDT Virtual Visit [facility] [address] [address] Sharee Negron, ÁNGEL [address] [place] [address] [phone] documented as of this encounter Goals Goal [...] documented as of this encounter Care Teams Orthopedics Pediatric Physician Relationship Specialty Start Date End Date Kaykay Duarte SUPERVISOR BRINE [address] [place] [address] PCP - General 10/15/22 Roderick Morelos MD [address] [place] [address] Cardiovascular Disease 02/03/22 Magno Wood MD [address] [place] [address] 217105 Otolaryngology 02/21/22 Sophie Ocasio, Nick [address] [place] [address] Binding Stitcher Audiology 02/21/22 Henny Rosales, TUBE BENDING MACHINE OPERATOR IRONER [address] [place] [phone] Assigned Heart and Vascular Provider 08/09/[address] [place] [address] 501305 Registered Dietitian Dietitian, Registered 09/02/22 Christiane Rodríguez MD [address] [place] [address] 396 [place], [place] 311355 Otolaryngology 11/12/22 Chely Fernandez PA-C [address] [place] [address] [phone] Assigned Surgical Provider 11/29/22 02/06/23 Jing Cadena, TUBE BENDING MACHINE OPERATOR ANIMAL RESEARCHER 420 [facility] 450 [place], [place] 8[address] Clinical Nurse Specialist Anesthesiology 01/15/23 Radha Lopez, [facility] [address] [place] [address] 368115 Pharmacist Pharmacist 01/16/23 Luis A Escobedo MD 420 [facility] [address] [place], [place] 0060[address] Assigned Surgical Provider 02/07/23 04/15/23 Geri Loza PA-C [address] [place] [address] Assigned Surgical Provider 04/16/23 documented as of this encounter
--- OUTSIDE RECORDS SUMMARY | 2023-05-09 18:22 | XMS_ITS | Encounter Summary ---
Author Name Unknown Organization [facility] Address [address] [place] [address]76 Care Team Providers Care Line Service Attendant Name Role Phone Roderick Morelos MD Unavailable [phone] Magno Wood MD Unavailable [phone] Sophie Ocasio AuD Unavailable [phone] Henny Rosales LENS BLOCK GAUGER UNION ORGANIZER Unavailable Sharee Negron RD Unavailable Kaykay Duarte PANTOGRAPHER Primary Care Provider [phone] Christiane Rodríguez MD Unavailable [phone] Chely FernandezC Unavailable [phone] Jing Cadena LENS BLOCK GAUGER ENTRY LEVEL JAVA DEVELOPER Unavailable Radha Lopez [facility] Unavailable [phone] Luis A Escobedo MD Unavailable [phone] Geri LozaC Unavailable [phone] Encounter Details Date Type Department Care Team (Late st Contact Info) Description 01/14/2023 [facility] [place] [phone] [facility] [address] 4th [place] [address] Radha Dominguez, RN [address] [place] [address] 195 [place] [address] Social History Tobacco Use Types Packs/Day Years [...] Description 06/24/2023 12:30 PM CDT Virtual Visit [facility] [address] [phone] Geri Loza PA-C [address] [place] [address] [phone] 06/24/2023 1:00 PM CDT Virtual Visit [facility] Management [address] [phone] Sharee Negron, RD [address] [place] [address] [phone] documented as of this encounter Goals Goal [...] documented as of this encounter Care Teams Line Service Attendant Relationship Specialty Start Date End Date Kaykay Duarte PANTOGRAPHER [address] [place] [address] PCP - General 10/15/22 Roderick Morelos MD [address] [place] [address] Cardiovascular Disease 02/03/22 Magno Wood MD [address] [place] [address] 396 [place] [address] Otolaryngology 02/21/22 Sophie Ocasio AuD [address] [place] [address] [phone] Monitoring Analyst Audiology 02/21/22 Henny Rosales APRN UNION ORGANIZER [address] [place] [phone] Assigned Heart and Vascular Provider 08/09/[address] [place] [address] [phone] Registered Dietitian Dietitian, Registered 09/02/22 Christiane Rodríguez MD [address] [place] [address] [phone] Otolaryngology 11/12/22 Chely Fernandez PA-C [address] [place] [address] [phone] Assigned Surgical Provider 11/29/22 02/06/23 Jing Cadena APRN ENTRY LEVEL JAVA DEVELOPER [address] [place] [address] [phone] Clinical Nurse Specialist Anesthesiology 01/15/23 Radha Lopez [facility] [address] [place] [address] Pharmacist Pharmacist 01/16/23 Luis A Escobedo MD [address] [place] [address] Assigned Surgical Provider 02/07/23 04/15/23 Geri Loza PA-C [address] [place] [address] Assigned Surgical Provider 04/16/23 documented as of this encounter
--- OUTSIDE RECORDS SUMMARY | 2023-05-09 18:22 | XMS_ITS | Encounter Summary ---
Author Name Unknown Organization [facility] Address [address] [place] [address] Care Team Providers Care Chef Saucier Name Role Phone Roderick Morelos MD Unavailable [phone] Magno Wood MD Unavailable [phone] Sophie Ocasio AuD Unavailable [phone] Henny Rosales TELEVISION ENGINEER NAPHTHALENE STILL OPERATOR Unavailable Sharee Negron RD Unavailable Kaykay Duarte PHARMACIST'S AIDE Primary Care Provider Christiane Rodríguez MD Unavailable [phone] Chely FernandezC Unavailable [phone] Jing Cadena TELEVISION ENGINEER BUNDLING MACHINE OPERATOR Unavailable Radha Lopez [facility] Unavailable [phone] Luis A Escobedo MD Unavailable [phone] Geri LozaC Unavailable [phone] Encounter Details Date Type Department Care Team (Late st Contact Info) Description 01/09/2023 [facility] Medical Advice [facility] [place] [address] [facility] [address] 4th [place] [address] Radha Dominguez, RN [address] [place] [address] 195 [place] [address] Social History Tobacco Use Types Packs/Day Years [...] [facility] [address] [phone] Geri Loza PA-C [address] [place] [address] [phone] 06/24/2023 1:00 PM CDT Virtual Visit [facility] Management [address] [phone] Sharee Negron, RD [address] [place] [address] [phone] documented as of this encounter Goals Goal [...] documented as of this encounter Care Teams Chef Saucier Relationship Specialty Start Date End Date Kaykay Duarte PHARMACIST'S AIDE [address] [place] [address] PCP - General 10/15/22 Roderick Morelos MD [address] [place] [address] Cardiovascular Disease 02/03/22 Magno Wood MD [address] [place] [address] 396 [place] [address] Otolaryngology 02/21/22 Sophie Ocasio AuD [address] [place] [address] [phone] Barge Hand Audiology 02/21/22 Henny Rosales APRN NAPHTHALENE STILL OPERATOR [address] [place] [phone] Assigned Heart and Vascular Provider 08/09/[address] [place] [address] [phone] Registered Dietitian Dietitian, Registered 09/02/22 Christiane Rodríguez MD [address] [place] [address] [phone] Otolaryngology 11/12/22 Chely Fernandez PA-C [address] [place] [address] [phone] Assigned Surgical Provider 11/29/22 02/06/23 Jing Cadena APRN BUNDLING MACHINE OPERATOR [address] [place] [address] [phone] Clinical Nurse Specialist Anesthesiology 01/15/23 Radha Lopez [facility] [address] [place] [address] Pharmacist Pharmacist 01/16/23 Luis A Escobedo MD [address] [place] [address] Assigned Surgical Provider 02/07/23 04/15/23 Geri Loza PA-C [address] [place] [address] Assigned Surgical Provider 04/16/23 documented as of this encounter
--- OUTSIDE RECORDS SUMMARY | 2023-05-09 18:22 | XMS_ITS | Encounter Summary ---
Author Name Unknown Organization [facility] Address [address] [place] [address] Care Team Providers Care Eviscerator Name Role Phone Roderick Morelos MD Unavailable [phone] Magno Wood MD Unavailable [phone] Sophie Ocasio Unavailable [phone] Henny Rosales APRN ENVIRONMENTAL MARKETER Unavailable [phone] Unavailable Kaykay Duarte NP Primary Care Provider Christiane Rordíguez MD Unavailable [phone] Chely Fernandez PA-C Unavailable [phone] Reason for Visit * Reason Comments ANIL Ruiz Nutrition Encounter Details Date Type Department Care Team (Latest Contact Info) Description 01/07/2023 9:00 AM CDT Virtual Visit [facility] [address] 4th [place] [address] Sharee Negron, RD [address] [place] [address] [phone] Nutritional counseling (Primary Dx); S/P laparoscopic sleeve gastrectomy; Class 3 severe obesity with serious comorbidity and body mass index (BMI) of 45.0 to 49.9 in adult, unspecified obesity type (H); Gastroesophageal reflux disease with esophagitis, unspecified whether hemorrhage; Type 2 diabetes mellitus without complication, without [...] - - Weight 131.5 kg (290 lb) 01/07/2023 8:49 AM CDT Height 167.6 cm (5' 6) 01/07/2023 8:49 AM CDT Body Mass Index 46.81 01/07/2023 8:49 AM CDT documented in this encounter Patient Instructions * Patient Instructions* Sharee Negron RD - 01/07/2023 9:00 AM CDT Goals: Relating To Eating: - Eat slowly (20-30 minutes per meal), chewing foods well (25 chews per bite/applesauce consistency) - Eat 3 meals per day - Consume 60-90 g protein per day - Avoid snacking Relating to beverages: - Separate fluids from meal time by 30 minutes (none during or 30 min after) - Recommend water as main fluid - Recommend limiting caffeine. None for 1-3 months post op Relating to dietary supplements: - Take vitamins/minerals as recommended Supplements after Sleeve Gastrectomy [email or web address] Weight loss prior to surgery: -20 lbs (weight of 285 lbs) Protein Supplements for After Surgery: Unflavored protein powder: Genepro, Isopure (25-30 gm protein per 1 scoop), Vital HP Collagen Peptide You may also use flavored protein powder if you prefer. Pre-made protein shakes (no more than 210 Calories, at least 20 grams of protein, and less than 10 grams of sugar): Premier Protein (160 Calories, 30 g protein) Boost/Ensure Max (160 calories, 30 gm protein) Fairlife Core Power (170 calories, 26 gm protein) Aldi's Elevation Protein Shake (160 calories, 30 gm protein) Equate Protein Shake (160 calories, 30 gm protein) Slim Fast Advanced Nutrition (180 Calories, 20 g protein) Muscle Milk, lactose-free, 17 oz bottle (210 Calories, 30 g protein) Glucerna Protein Smart (150 juan pablo, 30 gm protein) Clear Protein Drinks: BiPro Premier Protein clear [id number] M Health Protein 15 Concentrate Bone broth Beneprotein protein powder mixed with 4-6 oz of fluid [id number] After Weight Loss Surgery Why Take Supplements for Life after Weight Loss Surgery https://[email or web address] Keeping Up Your Diet after Weight Loss Surgery https://[employer]/[email or web address].pdf Preventing Low Blood Sugar after Weight Loss Surgery https://[employer]/[email or web address] Preventing Dumping Syndrome after Weight Loss Surgery https://[email or web address] Follow-Ups: 02/04/[address], LD Clinic #: [phone] documented in this encounter Progress Notes * Sharee Negron RD - 01/07/2023 9:00 AM CDT Images from the original note were not included. Video-Visit Details Type of service: Video Visit Video Start Time: 8:59 am Video End Time: 9:15 am Originating Location (pt. Location): Home Distant Location (provider location): Offsite (providers home) Platform used for Video Visit: [place] Nutrition Assessment Reason For Visit: Billie Connolly is a 52 year old female presents today for re-establish nutrition visit. Pt with history of sleeve gastrectomy 08/09/[address] [facility] [address] Barillas. Patient referred by Geri Loza PA-C on August 15, 2022. Patient with Co-morbidities of obesity including: Type II DM Sleep apnea Joint pain - chronic right hip pain GERD PMH: hypothyroidism, SVT, RLS Anthropometrics: Pre-op Weight: 338 lbs Weight 08/15/22: 308.9 lbs Estimated body mass index is 46.81 kg/m?? as calculated from the following: Height as of this encounter: 1.676 m (5' 6). Weight as of this encounter: 131.5 kg (290 lb). Current weight: 290 lbs, pt report Goal weight for surgery -20 lbs, 288.9 lbs Medications for weight loss: Orlistat added 09/02/22 - Denied, doing OTC Ally instead. Carie - has type 2 diabetes Current Vitamins/Minerals: SL B12 Robinson with iron Vitamin D 2,000 international unit(s)/day Labs 08/20/22 A1C 7.2 TSH elevated Labs 10/23/22 Vit D low at - Started taking Vitamin D since then TSH elevated PTH WNL Labs 12/23/22 Low TSH - Endo is managing A1C 6.4 (down from 10.8 10/30/21) Nutrition History: NKFA Not huge on fish/seafood [...] see previous RD notes for more detail. 11/03/22 Started Ally since last visit. Stopped for time being due to covid. Following Dr. Levy ware diet - eating mostly protein, vegetables and some fruit. Has had some beans as well. Got some protein shakes to help supplement. Will have for breakfast or if really hungry between meals. Down 7 lbs. Eating until full. Doing lots of eggs, chair caner salads and chicken. Dx with covid over the weekend - taking Paxlovid. Taste/smell gone Hydration: going well, lots of water right now with covid. Also doing some hot tea Starting psych eval process this week. Hoping to have surgery by early January if possible. Nov 2022: Doing well on Ally. No vomiting since starting and reflux has significantly improved. Continuing to lose weight. Did gain some over weekend - was out of town and eating out more often. Didn't bring Ally with, wasn't sure what bathroom situation would be like. Continues with Dr. Escobedo's fork diet Had psych eval done, on file under Media tab 11/27/22. Dec 2022 Reflux has been well managed with meds [...] shakes instead of a meal if forgetting. Activity: limited by pain (needs hip replacement) Previous goals: Aim to stay consistent with eating habits - Met, going well last month and this. Continue working on hydration - Improving, more mindful of. No juices or pop. No carbonation. 1 coffee/day. 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 Patient demonstrates understanding. Provided pt with list of goals and RD contact information. Expected Engagement: good Goals: Relating To Eating: - Eat slowly (20-30 minutes per meal), chewing foods well (25 chews per bite/applesauce consistency) - Eat 3 meals per day - Consume 60-90 g protein per day - Avoid snacking Relating to beverages: - Separate fluids from meal time by 30 minutes (none during or 30 min after) - Recommend water as main fluid - Recommend limiting caffeine. None for 1-3 months post op Relating to dietary supplements: - Take vitamins/minerals as recommended Supplements after Sleeve Gastrectomy https://[employer] Image [email or web address] Weight loss prior to surgery: -20 lbs (weight of 285 lbs) Protein Supplements for After Surgery: Unflavored protein powder: Genepro, Isopure (25-30 gm protein per 1 scoop), Vital HP Collagen Peptide You may also use flavored protein powder if you prefer. Pre-made protein shakes (no more than 210 Calories, at least 20 grams of protein, and less than 10 grams of sugar): Premier Protein (160 Calories, 30 g protein) Boost/Ensure Max (160 calories, 30 gm protein) Fairlife Core Power (170 calories, 26 gm protein) Aldi's Elevation Protein Shake (160 calories, 30 gm protein) Equate Protein Shake (160 calories, 30 gm protein) Slim Fast Advanced Nutrition (180 Calories, 20 g protein) Muscle Milk, lactose-free, 17 oz bottle (210 Calories, 30 g protein) Glucerna Protein Smart (150 juan pablo, 30 gm protein) Clear Protein Drinks: BiPro Premier Protein clear [id number] M Health Protein 15 Concentrate Bone broth Beneprotein protein powder mixed with 4-6 oz of fluid [id number] After Weight Loss Surgery Why Take Supplements for Life after Weight Loss Surgery https://[employer]/538046.pdf Keeping Up Your Diet after Weight Loss Surgery https://[employer]/297120.pdf Preventing Low Blood Sugar after Weight Loss Surgery https://[employer]/199217.pdf Preventing Dumping Syndrome after Weight Loss Surgery https://[email or web address]/[email or web address].pdf Follow-Ups: 02/04/23 Time spent with patient: 16 minutes. SIVA Matias, RD, LD documented in this encounter Nursing Notes * Virginia Ramirez - 01/07/2023 9:00 AM CDT Is the patient currently in the state of [place]? YES Visit mode:VIDEO If the visit is dropped, the patient can be reconnected by: VIDEO VISIT: Text to cell phone: Telephone Information: Will anyone else be joining the visit? NO (If patient encounters technical issues they should call [phone] :[phone]) How would you like to obtain your AVS? MyChart Are changes needed to the allergy or medication list? No, Pt stated no changes to allergies, and Ptstated no med changes Reason for visit: RECHECK ([facility]) Virginia Ramirez VVF documented in this encounter Plan of Treatment Upcoming Encounters Date Type Department Care Team (Late st Contact Info) Description 06/24/2023 12:30 PM CDT Virtual Visit [facility] [address] [phone] Geri Loza PA-C [address] [place] [address] [phone] 06/24/2023 1:00 PM CDT Virtual Visit [facility] [address] [phone] Sharee Negron, RD [address] [place] [address] documented as of this encounter Goals [...] 49.9 in adult, unspecified obesity type (H) Gastroesophageal reflux disease with esophagitis, unspecified whether hemorrhage Type 2 diabetes mellitus without complication, without long-term current use of insulin (H) documented in this encounter Additional Health Concerns Problem Noted Date Diagnosed Date BRIAN PATHWAY SURGERY IS SCHEDULED 10/15/2022 documented as of this encounter Care Teams Eviscerator Relationship Specialty [place] [address] [facility] [place] [address] PCP - General 10/15/22 Roderick Morelos MD [address] [place] [address] Cardiovascular Disease 02/03/22 Magno Wood MD [address] [place] [address] [phone] Otolaryngology 02/21/22 Sophie Ocasio AuD [address] [place] [address] Can Feeder Audiology 02/21/22 Henny Rosales APRN ENVIRONMENTAL MARKETER [address] [place] [address] Assigned Heart and Vascular Provider 08/09/[address] [place] [address] Registered Dietitian Dietitian, Registered 09/02/22 Christiane Rodríguez MD [address] [place] [address] [phone] Otolaryngology 11/12/22 [facility] Fernandez PA-C [address] [place] [address] [phone] Assigned Surgical Provider 11/29/22 02/06/23 documented as of this encounter
--- OUTSIDE RECORDS SUMMARY | 2023-05-09 18:22 | XMS_ITS | Encounter Summary ---
Author Name Unknown Organization [facility] Address [address] [place] [address] Care Team Providers Care Barbering Instructor Name Role Phone Roderick Morelos MD Unavailable [phone] Magno Wood MD Unavailable [phone] Sophie Ocasio AuD Unavailable [phone] Henny Rosales APRN MOTION DESIGNER Unavailable [phone] Unavailable Kaykay Duarte TELECOMMUNICATIONS EQUIPMENT INSTALLER Primary Care Provider [phone] Christiane Rodríguez MD Unavailable [phone] Chely Fernandez PA-C Unavailable [phone] Encounter Details Date Type Department Care Team (Latest Contact Info) Description 01/12/2023 Travel Social History Tobacco Use Types Packs/Day [...] Upcoming Encounters Date Type Department Care Team ( st Contact Info) Description 06/24/2023 12:30 PM CDT Virtual Visit [facility] [address] [phone] Geri Loza PA-C [address] [place] [address] [phone] 06/24/2023 1:00 PM CDT Virtual Visit [facility] [address] [phone] Sharee Negron, RD [address] [place] [address] documented as of this encounter Goals [...] documented as of this encounter Care Teams Barbering Instructor Relationship Specialty [place] [address] [place] [address] PCP - General 10/15/22 Roderick Morelos MD [address] [place], [place] 087465 Cardiovascular Disease 02/03/22 Magno Wood MD [address] [place] [address] [address] [place], [place] [phone] Otolaryngology 02/21/22 Sophie Ocasio AuD [address] [place] [address] [phone] Maint Mechanic Audiology 02/21/22 Henny Rosales APRN MOTION DESIGNER [address] [place] [phone] Assigned Heart and Vascular Provider 08/09/[address] [place] [address] Registered Dietitian Dietitian, Registered 09/02/22 Christiane Rodríguez MD [address] [place] [address] Otolaryngology 11/12/22 [facility] Fernandez PA-C [address] [place] [address] Assigned Surgical Provider 11/29/22 02/06/23 documented as of this encounter
--- OUTSIDE RECORDS SUMMARY | 2023-05-09 18:22 | XMS_ITS | Encounter Summary ---
Author Name Unknown Organization [facility] Address [address] [place] [address]. [place] [address] Care Team Providers Care Carrier Associate Name Role Phone Roderick Morelos MD Unavailable [phone] Magno Wood MD Unavailable [phone] Sophie Ocasio AuD Unavailable [phone] Henny Rosales WAX PATTERN ASSEMBLER MUCK OPERATOR Unavailable [phone] Unavailable Kaykay Duarte COMMUNITY RELATIONS MANAGER Primary Care Provider Christiane Rodríguez MD Unavailable [phone] Che[facility] FernandezC Unavailable Jing Cadena WAX PATTERN ASSEMBLER DECAY CONTROL OPERATOR Unavailable Radha Lopez [facility] Unavailable Luis A Escobedo MD Unavailable Encounter Details Date Type Department Care Team (Late st Contact Info) Description 01/12/2023 Telephone [facility] [place] [address] [facility] [address] 4th [place] [address] Radha Dominguez, RN [address] [facility] [address] [place] [address] Social History Tobacco Use Types [...] encounter Miscellaneous Notes * Telephone Encounter - Eulalia Shari - 01/12/2023 11:59 AM CDT General Call Contacts Type Contact Phone/Fax 01/12/2023 11:58 AM CDT Phone (Incoming) Billie Connolly (Self) [phone] (M) Reason for Call: call back What are your questions or concerns: pt would like a call back regarding surg date Could we send this information to you in [facility] or would you prefer to receive a phone call?: Patient would prefer a phone call Okay to leave a detailed message?: Yes at Cell number on file: Telephone Information: documented in this encounter Plan of Treatment Upcoming Encounters Date Type Department Care Team (Late st Contact Info) Description 06/24/2023 12:30 PM CDT Virtual Visit [facility] [address] [phone] Geri Loza PA-C [address] [place] [address] [phone] 06/24/2023 1:00 PM CDT Virtual Visit [facility] [address] [phone] Sharee Negron, ÁNGEL [address] [place] [address] [phone] documented as of this encounter Goals Goal [...] documented as of this encounter Care Teams Carrier Associate Relationship Specialty [place] [address] [place] [address] PCP - General 10/15/22 Roderick Morelos MD [address] [place] [address] Cardiovascular Disease 02/03/22 Magno Wood MD [address] [place] [address] [phone] Otolaryngology 02/21/22 Sophie Ocasio AuD [address] [place] [address] [phone] Automatic I Threading Machine Feeder Audiology 02/21/22 Henny Rosales APRN MUCK OPERATOR [address] [place] [phone] Assigned Heart and Vascular Provider 08/09/[address] [place] [address] [phone] Registered Dietitian Dietitian, Registered 09/02/22 Christiane Rodríguez MD [address] [place] [address] [phone] Otolaryngology 11/12/22 Che[facility] Fernandez PA-C [address] [place] [address] [phone] Assigned Surgical Provider 11/29/22 02/06/23 Jing Cadena, WAX PATTERN ASSEMBLER DECAY CONTROL OPERATOR [address] [place] [address] [phone] Clinical Nurse Specialist Anesthesiology 01/15/23 Radha Lopez, [facility] [address] [place] [address] [phone] Pharmacist Pharmacist 01/16/23 Luis A Escobedo MD [address] [place] [address] [phone] Assigned Surgical Provider 02/07/23 04/15/23 documented as of this encounter
--- OUTSIDE RECORDS SUMMARY | 2023-05-09 18:22 | XMS_ITS | Encounter Summary ---
Author Name Unknown Organization [facility] Address [address] [place] [address] Care Team Providers Care Production Staff Worker Name Role Phone Roderick Morelos MD Unavailable [phone] Magno Wood MD Unavailable [phone] Sophie Ocasio AuD Unavailable [phone] Henny Rosales APRN SEWER HEAD Unavailable [phone] Unavailable Kaykay Duarte NP Primary Care Provider Christiane Rodríguez MD Unavailable Chely Fernandez PA-C Unavailable [phone] Reason for Visit * Reason Onset Date Comments Clinic Care Coordination - Follow-up 01/12/2023 Encounter Details Date Type Department Care Team (Late st Contact Info) Description 01/12/2023 Telephone [facility] [place] [address] [facility] [address] 4th [place] [address] Radha Dominguez, RN [address] [place] [address] Clinic Care Coordination - Follow-up Social [...] Telephone Encounter - Radha Dominguez RN - 01/12/2023 10:46 AM CDT Left voice message to call Edgar at [phone] to move up visit with Dr Escobedo to 01/29/23 to 7a, 8a, 9a, or 11am (let her know 1st and 2nd choice). Could then have revisional surgery on 03/03/23 based on Nov clinic visit. documented in this encounter Plan of Treatment Upcoming Encounters Date Type Department Care Team (Late st Contact Info) Description 06/24/2023 12:30 PM CDT Virtual Visit [facility] [address] [phone] Geri Loza PA-C [address] [place] [address] [phone] 06/24/2023 1:00 PM CDT Virtual Visit [facility] [address] [phone] Sharee Negron, RD [address] [place] [address] [phone] documented as of this encounter Goals Goal [...] documented as of this encounter Care Teams Production Staff Worker Relationship Specialty Start Date End Date Kaykay Duarte, INSTRUCTIONAL TECHNOLOGY FACILITATOR [address] [place] [address] PCP - General 10/15/22 Roderick Morelos MD [address] [place], [place] [phone] Cardiovascular Disease 02/03/22 Magno Wood MD [address] [place] [address] [address] [place] [address] Otolaryngology 02/21/22 Sophie Ocasio AuD [address] [place] [address] Electron Beam Photo Mask Technician Audiology 02/21/22 Henny Rosales APRN SEWER HEAD [address] [place] [address] Assigned Heart and Vascular Provider 08/09/[address] [place] [address] [phone] Registered Dietitian Dietitian, Registered 09/02/22 Christiane Rodríguez MD [address] [place] [address] [address] [place] [address] Otolaryngology 11/12/22 Chely Fernandez PA-C [address] [place] [address] Assigned Surgical Provider 11/29/22 02/06/23 documented as of this encounter
--- OUTSIDE RECORDS SUMMARY | 2023-05-09 18:23 | XMS_ITS | Encounter Summary ---
Author Name Unknown Organization [facility] Address [address] [place] [address] Care Team Providers Care Home School Teacher Name Role Phone Roderick Morelos MD Unavailable Magno Wood MD Unavailable [phone] Sophie Ocasio AuD Unavailable [phone] Henny Rosales DEVELOPMENT VICE PRESIDENT LICENSED NURSE PRACTITIONER Unavailable [phone] Unavailable Kaykay Duarte CHART READER Primary Care Provider [phone] Christiane Rodríguez MD Unavailable [phone] Luis A Escobedo MD Unavailable [phone] Chely Fernandez PA-C Unavailable [phone] Jing Cadena APRN ATHLETIC SCOUT Unavailable + [phone] Radha Lopez [facility] Unavailable [phone] Luis A Escobedo MD Unavailable [phone] Geri Loza PA-C Unavailable [phone] Encounter Details Date Type Department Care Team (Late st Contact Info) Description 11/03/2022 [facility] [address] [place] [phone] Kang Griffiths Social History Tobacco Use Types Packs/Day Years Used Date Smoking Tobacco: Never Smokeless Tobacco: Never Alcohol Use Standard Drinks/Week Comments Yes 0 (1 standard drink = 0.6 oz pur e alcohol) socially PHQ-2 Answer Date Recorded PHQ-2 Score 0 11/05/2022 Sex and Gender Information Value Date Recorded Sex Assigned at Not on file Gender Identity Not on file Sexual Orientation Not on file COVID-19 Exposure Response Date Recorded In the last 10 days, have yo u been in contact with someone who was confirmed or suspected to have Coronavirus/COVID-19? No / Unsure 10/23/2022 9:17 AM CDT documented as of this encounter Plan of Treatment Upcoming Encounters Date Type Department Care Team (Late st Contact Info) Description 06/24/2023 12:30 [address] CDT [address] [facility] [address] [phone] Geri Loza PA-C [address] [place] [address] 746115 06/24/2023 1:00 PM CDT Virtual Visit [facility] Weight Management [address] [phone] Sharee Negron, RD [address] [place] [address] [phone] documented as of this encounter Goals Goal [...] documented as of this encounter Care Teams Home School Teacher Relationship Specialty [place] [address] [facility] [place] [address] PCP - General 10/15/22 Roderick Morelos MD [address] [place] [address] Cardiovascular Disease 02/03/22 Magno Wood MD [address] [place] [address] 396 [place], [place] 798705 Otolaryngology 02/21/22 Sophie Ocasio AuD [address] [place] [address] 895865 Wound Care Specialist Audiology 02/21/22 Henny Rosales APRN LICENSED NURSE PRACTITIONER [address] [place] [phone] Assigned Heart and Vascular Provider 08/09/[address] [place] [address] 529175 Registered Dietitian Dietitian, Registered 09/02/22 Christiane Rodríguez MD [address] [place] [address] 748805 Otolaryngology 11/12/22 Luis A Escobedo MD [address] [place] [address] 430245 Assigned Surgical Provider 11/01/22 11/28/22 Chely Fernandez PA-C [address] [place] [address] 860125 Assigned Surgical Provider 11/29/22 02/06/23 Jing Cadena, DEVELOPMENT VICE PRESIDENT ATHLETIC SCOUT 420 [facility] 450 [place] [address] Clinical Nurse Specialist Anesthesiology 01/15/23 Radha Lopez, [facility] 909 [place] [address] Pharmacist Pharmacist 01/16/23 Luis A Escobedo MD [address] [address] Assigned Surgical Provider 02/07/23 04/15/23 Geri Loza PA-C 909 [place], [place] [phone] Assigned Surgical Provider 04/16/23 documented as of this encounter
--- OUTSIDE RECORDS SUMMARY | 2023-05-09 18:23 | XMS_ITS | Encounter Summary ---
Author Name Unknown Organization [facility] Address [address] [place] [address] Care Team Providers Care Feeder/Folder Name Role Phone Roderick Morelos MD Unavailable [phone] Magno Wood MD Unavailable [phone] Sophie Ocasio AuD Unavailable Henny Rosales PIPELINE CONTROLLER MARBLE CHIP TERRAZZO WORKER Unavailable [phone] Unavailable Kaykay Duarte CUSTOMER SECURITY CLERK Primary Care Provider Christiane Rodríguez MD Unavailable [phone] Luis A Escobedo MD Unavailable [phone] Reason for Visit * Reason Onset Date Comments Previsit 11/25/2022 Encounter Details Date Type Department Care Team (Late st Contact Info) Description 11/25/2022 PRE VISIT [facility] [place] [address] [facility] [address] 4th [place] [address] Christiane Rodríguez MD 420 [facility] 396 [place] [address] Previsit Social History Tobacco Use Types Packs/Day Years [...] encounter Miscellaneous Notes * Telephone Encounter - Ale Noel - 11/12/2022 3:54 PM CDT FUTURE VISIT INFORMATION: FUTURE VISIT INFORMATION: Date: 11/25/22 Time: 9:10 AM Location: [facility]: Referring provider: Referring providers clinic: Reason for visit/diagnosis: patient has history of cholesteatoma, saw dr. wood in past referral for Otorrhea RECORDS REQUESTED FROM: Clinic name Comments Records Status Imaging Status [facility] 10/20/22 telephone referral - Kaykay Duarte APRN, MARBLE CHIP TERRAZZO WORKER [facility] OV with Magno Wood MD Audiogram: 1991-1993 [facility] Procedure 05/20/2005 TYMPANOMASTOIDECTOMY WITH LASER with Magno Suarez MD [facility] Medical Records [facility] [id number] 09/10/22 note- Vito Turner MD 09/10/22 audiogram 09/18/22 CT IAC Req 11/12/22 RECEIVED send to scan 11/13 PACS November 12, 2022 at 4:06 PM - faxed request to [place] for images, recs, audiogram -[facility] November 13, 2022 at 8:08 AM - Received recs from [place] and send to scanning -[facility] documented in this encounter Plan of Treatment Upcoming Encounters Date Type Department Care Team (Late st Contact Info) Description 06/24/2023 12:30 PM CDT Virtual Visit [facility] [address] 4th [place] [address] Geri Loza PA-C [address] [place] [address] 06/24/2023 1:00 PM CDT Virtual Visit [facility] [address] 4th [place] [phone] Sharee Negron, RD 909 [place] [address] documented as of this encounter Goals Goal [...] documented as of this encounter Care Teams Feeder/Folder Relationship Specialty [place] [address] [place] [address] PCP - General 10/15/22 Roderick Morelos MD [address] [place] [address] Cardiovascular Disease 02/03/22 Magno Wood MD [address] [place] [address] 396 [place], [place] 770[address] Otolaryngology 02/21/22 Sophie Ocasio AuD [address] [place] [address] [phone] Technical Project Lead Audiology 02/21/22 Henny Rosales APRN MARBLE CHIP TERRAZZO WORKER [address] [place] [phone] Assigned Heart and Vascular Provider 08/09/[address] 9 [place], [place] 087[address] Registered Dietitian Dietitian, Registered 09/02/22 Christiane Rodríguez MD [address] [place] [address] Otolaryngology 11/12/22 Luis A Escobedo MD [address] [place] [address] Assigned Surgical Provider 11/01/22 11/28/22 documented as of this encounter
--- OUTSIDE RECORDS SUMMARY | 2023-05-09 18:23 | XMS_ITS | Encounter Summary ---
Author Name Unknown Organization [facility] Address [address] [place] [address] Care Team Providers Care Nicker And Breaker Name Role Phone Roderick Morelos MD Unavailable [phone] Magno Wood MD Unavailable [phone] Sophie Ocasio AuD Unavailable [phone] Henny Rosales MECHANICAL UNIT REPAIRER CHANNELER INSOLE Unavailable [phone] Unavailable Kaykay Duarte CISCO ADMINISTRATOR Primary Care Provider [phone] Christiane Rodríguez MD Unavailable [phone] Luis A Escobedo MD Unavailable [phone] Encounter Details Date Type Department Care Team (Latest Contact Info) Description 11/18/2022 Travel Social History Tobacco Use Types Packs/Day [...] suspected to have Coronavirus/COVID-19? No / Unsure 11/18/2022 11:59 AM CDT documented as of this encounter Plan of Treatment Upcoming Encounters Date Type Department Care Team (Late st Contact Info) Description 06/24/2023 12:30 PM CDT Virtual Visit [facility] [address] [phone] Geri Loza PA-C [address] [place] [address] [phone] 06/24/2023 1:00 PM CDT Virtual Visit [facility] Weight Management [address] [address] Sharee Negron, RD [address] [place] [address] [phone] documented as of this encounter Goals Goal [...] documented as of this encounter Care Teams Nicker And Breaker Relationship Specialty [place] [address] [place] [address] PCP - General 10/15/22 Roderick Morelos MD [address] [place] 118025 Cardiovascular Disease 02/03/22 Magno Wood MD [address] [place] [address] 625665 Otolaryngology 02/21/22 Sophie Ocasio AuD 909 [place] [address] Mechanical Spreader Operator Audiology 02/21/22 Henny Rosales APRN CHANNELER INSOLE [address] [place] [address] Assigned Heart and Vascular Provider 08/09/[address] [place] [address] Registered Dietitian Dietitian, Registered 09/02/22 Christiane Rodríguez MD 420 [facility] 396 [place] [address] Otolaryngology 11/12/22 Luis A Escobedo MD 420 [facility] 195 [place], [place] 330855 Assigned Surgical Provider 11/01/22 11/28/22 documented as of this encounter
--- OUTSIDE RECORDS SUMMARY | 2023-05-09 18:23 | XMS_ITS | Encounter Summary ---
Author Name Unknown Organization [facility] Address [address] [place] [address] Care Team Providers Care Linotype Worker Name Role Phone Roderick Morelos MD Unavailable [phone] Magno Wood MD Unavailable [phone] Sophie Ocasio AuD Unavailable [phone] Henny Rosales APRN RN OPERATING ROOM Unavailable [phone] Unavailable Kaykay Duarte NP Primary Care Provider Christiane Rodríguez MD Unavailable [phone] Luis A Escobedo MD Unavailable [phone] Reason for Referral * Consultation (Routine) - Pending Review Specialty Diagnoses / Procedures Referred By Contac t Referred To Contact Otolaryngology Diagnoses Otorrhea, unspecified ear iVto Santos MD [facility] [address] [facility] [place] [address] Fax: Referral ID Status Reason Start Date Expiration Date V isits Requested Visits Authorized [id number] Pending Review 11/13/2022 11/13/2023 1 1 Question Answer Reason for Referral: Ear Symptoms Scheduling Instructions: [facility] will call you to coordinate your care as prescribed by the provider. If you don? t hear from a data entry representative within 2 business days, please call [phone]. Comments Ref by: Dr Vito Turner [facility] & [address] [address] [facility] will call you to coordinate your care as prescribed by the provider. If you don? t hear from a data entry representative within 2 business days, please call [phone]. Encounter Details Date Type Department Care Team (Late Contact Info) Description 11/13/2022 Transcribe Orders GENERIC EXTERNAL DATA DEPARTMENT Provider, Generic External Data Otorrhea, unspecified ear (Primary Dx) Social History Tobacco Use Types [...] Upcoming Encounters Date Type Department Care Team ([facility] Contact Info) Description 06/24/2023 12:30 PM CDT Virtual Visit [facility] Clinic [address] [address] Geri Loza PA-C [address] [place] [address] [phone] 06/24/2023 1:00 PM CDT Virtual Visit [facility] Weight Management [address] [address] Sharee Negron, ÁNGEL [address] [place] [address] Scheduled Referrals Name Type Priority Associated Diagnoses Orde r Schedule Adult ENT Vaccine Manager Referral Referral Routine Otorrhea, unspecified ear Expected: 11/13/2022 (Approximate), Expires: 11/14/2023 documented as of this encounter Goals Goal Patient Goal Type Associated Problems Recent Progress Patient-Stated? Author BRIAN PATHWAY SURGERY IS SCHEDULED Care Plan BRIAN PATHWAY SURGERY IS SCHEDULED No Luis A Escobedo MD documented as of this encounter Visit Diagnoses Diagnosis Otorrhea, unspecified ear- Primary documented in this encounter Additional Health Concerns Problem Noted Date Diagnosed Date BRIAN PATHWAY SURGERY IS SCHEDULED 10/15/2022 documented as of this encounter Care Teams Linotype Worker Relationship Specialty Start Date End Date Kaykay Duarte, BRIM MOLDER [address] [place] [address] PCP - General 10/15/22 Roderick Morelos MD [address] [place] [address] Cardiovascular Disease 02/03/22 Magno Wood MD [address] [place] [address] 162735 Otolaryngology 02/21/22 Sophie Ocasio AuD [address] [place] [address] 693635 Microsoft Developer Audiology 02/21/22 Henny Rosales APRN RN OPERATING ROOM [address] [place] [phone] Assigned Heart and Vascular Provider 08/09/[address] [place] [address] Registered Dietitian Dietitian, Registered 09/02/22 Christiane Rodríguez MD [address] [place] [address] [phone] Otolaryngology 11/12/22 Luis A Escobedo MD [address] [place] [address] Assigned Surgical Provider 11/01/22 11/28/22 documented as of this encounter
--- OUTSIDE RECORDS SUMMARY | 2023-05-09 18:23 | XMS_ITS | Encounter Summary ---
Author Name Unknown Organization [facility] Address [address] [place] [address]. [place] [address] Care Team Providers Care Drum Stock Clerk Name Role Phone Roderick Morelos MD Unavailable [phone] Magno Wood MD Unavailable [phone] Sophie Ocasio AuD Unavailable [phone] Henny Rosales APRN BRIM BLOCKER Unavailable [phone] Unavailable Kaykay Duarte NP Primary Care Provider [phone] Christiane Rodríguez MD Unavailable [phone] Luis A Escobedo MD Unavailable [phone] Reason for Referral * Specialty Diagnoses / Procedures Referred By Osmar gallego Referred To Contact [address] [address] Referral ID Status Reason Start Date Expiration Date V isits Requested Visits Authorized Assess and Evaluate Question Answer Reason for Referral: Hearing and Ear Services: Audiogram (Hearing Test with Tymps and Reflexes) Scheduling Instructions: [facility] will call you to coordinate your care as prescribed by the provider. If you don? t hear from a credit representative within 2 business days, please call . Comments [facility] will call you to coordinate your care as prescribed by the provider. If you don? t hear from a credit representative within 2 business days, please call . Encounter Details Date Type Department Care Team (Late Contact Info) Description 11/19/2022 Orders Only [facility] [address] [address] Chely Fernandez PA-C [address] [place] [address] Encounter for hearing test (Primary Dx) Social History Tobacco Use Types [...] Encounters Date Type Department Care Team (Late Contact Info) Description 06/24/2023 12:30 PM CDT Virtual Visit [facility] Weight Management Clinic [address] [address] Geri Loza PA-C [address] [place] [address] 06/24/2023 1:00 PM CDT Virtual Visit [facility] Weight Management [address] [address] Sharee Negron, ÁNGEL [address] [place] [address] Scheduled Referrals Name Type Priority Associated Diagnoses Orde r Schedule Adult Audiology Steno Typist Referral Referral Routine: Next available opening Encounter for hearing test Ordered: 11/19/2022 documented as of this encounter Goals Goal Patient Goal Type Associated Problems Recent Progress Patient-Stated? Author BRIAN PATHWAY SURGERY IS SCHEDULED Care Plan BRIAN PATHWAY SURGERY IS SCHEDULED No Luis A Escobedo MD documented as of this encounter Visit Diagnoses Diagnosis Encounter for hearing test- Primary Other examination of ears and hearing documented in this encounter Additional Health Concerns Problem Noted Date Diagnosed Date BRIAN PATHWAY SURGERY IS SCHEDULED 10/15/2022 documented as of this encounter Care Teams Drum Stock Clerk Relationship Specialty Start Date End Date Kaykay Duarte SOFTWARE INSTALLER [address] [place] [address] PCP - General 10/15/22 Roderick Morelos MD [address] [place] [address] Cardiovascular Disease 02/03/22 Magno Wood MD [address] [place] [address] 666015 Otolaryngology 02/21/22 Sophie Ocasio AuD [address] [place] [address] [phone] Business Intelligence Manager Audiology 02/21/22 Henny Rosales APRN BRIM BLOCKER [address] [place] [address] Assigned Heart and Vascular Provider 08/09/[address] [place] [address] [phone] Registered Dietitian Dietitian, Registered 09/02/22 Christiane Rodríguez MD [address] [place] [address] 190485 Otolaryngology 11/12/22 Luis A Escobedo MD [address] [place] [address] 037535 Assigned Surgical Provider 11/01/22 11/28/22 documented as of this encounter
--- OUTSIDE RECORDS SUMMARY | 2023-05-09 18:23 | XMS_ITS | Encounter Summary ---
Author Name Unknown Organization [facility] Address [address] [place] [address] Care Team Providers Care Trenching Machine Operator Name Role Phone Roderick Morelos MD Unavailable [phone] Magno Wood MD Unavailable [phone] Sophie Ocasio AuD Unavailable [phone] Henny Rosales INJURY PREVENTION COORDINATOR STITCHER HAND Unavailable [phone] Unavailable Kaykay Duarte BAR EXAMINER Primary Care Provider [phone] Christiane Rodríguez MD Unavailable [phone] Luis A Escobedo MD Unavailable [phone] Chely Fernandez PA-C Unavailable [phone] Jing Cadena APRN NATIONAL SALES CONSULTANT Unavailable [phone] Radha Lopez [facility] Unavailable [phone] Luis A Escobedo MD Unavailable [phone] Geri Loza PA-C Unavailable [phone] Encounter Details Date Type Department Care Team (Late st Contact Info) Description 11/07/2022 [facility] Medical Advice [facility] [address] [place] [phone] Geri Loza PA-C [address] [place] [address] 134335 Social History Tobacco Use Types Packs/Day Years [...] Description 06/24/2023 12:30 PM CDT Virtual Visit [facility] [address] [phone] Geri Loza PA-C [address] [place] [address] 495885 06/24/2023 1:00 PM CDT Virtual Visit [facility] Management [address] [phone] Sharee Negron, RD [address] [place] [address] 380285 documented as of this encounter Goals Goal [...] documented as of this encounter Care Teams Trenching Machine Operator Relationship Specialty Start Date End Date Kaykay Duarte, BAR EXAMINER [address] [place] [address] PCP - General 10/15/22 Roderick Morelos MD [address] [place] [address] Cardiovascular Disease 02/03/22 Magno Wood MD [address] [place] [address] 764445 Otolaryngology 02/21/22 Sophie Ocasio AuD [address] [place] [address] 209265 Bilingual Recruiter Audiology 02/21/22 Henny Rosales APRN STITCHER HAND [address] [place] [address] Assigned Heart and Vascular Provider 08/09/[address] [place] [address] 159255 Registered Dietitian Dietitian, Registered 09/02/22 Christiane Rodríguez MD [address] [place] [address] 656675 Otolaryngology 11/12/22 Luis A Escobedo MD [address] [place] [address] 669025 Assigned Surgical Provider 11/01/22 11/28/22 Chely Fernandez PA-C 9[address] [place], [place] 751565 Assigned Surgical Provider 11/29/22 02/06/23 Jing Cadena, INJURY PREVENTION COORDINATOR NATIONAL SALES CONSULTANT 420 [facility] 450 [place] [address] Clinical Nurse Specialist Anesthesiology 01/15/23 Radha Lopez, [facility] [address] [place] [address] 325275 Pharmacist Pharmacist 01/16/23 Luis A Escobedo MD 420 [facility] 195 [place], [place] 840465 Assigned Surgical Provider 02/07/23 04/15/23 Geri Loza PA-C 9 [place], [place] 226475 Assigned Surgical Provider 04/16/23 documented as of this encounter
--- OUTSIDE RECORDS SUMMARY | 2023-05-09 18:23 | XMS_ITS | Encounter Summary ---
Author Name Unknown Organization [facility] Address [address] [place] [address] Care Team Providers Care Waiter/Waitress Dining Car Name Role Phone Roderick Morelos MD Unavailable [phone] Magno Wood MD Unavailable [phone] Sophie Ocasio AuD Unavailable [phone] Henny Rosales APRN TOBACCO CHECKOUT CLERK Unavailable [phone] Unavailable Kaykay Duarte NP Primary Care Provider [phone] Christiane Rodríguez MD Unavailable [phone] Luis A Escobedo MD Unavailable [phone] Reason for Referral * Rehab Therapy Physical Therapy (Routine: Next available opening) - Pending Review Specialty Diagnoses / Procedures Referred By Contsherley t Referred To Contact Diagnoses Dizziness Chely Fernandez PA-C [address] [place] [address] Referral ID Status Reason Start Date Expiration Date V isits Requested Visits Authorized [id number] Pending Review 11/19/2022 11/19/2023 1 1 Question Answer Preferred Location: [facility] Scheduling Instructions: If you have not heard from the scheduling office within 2 business days, please call [phone] for [facility], for [place] and [phone] for [place]. Course of Action Evaluation and Treatment Adult or Pediatrics Adult Specialty Services: Vestibular (PT or OT) Comments Please be aware that coverage of these services is subject to the terms and limitations of your health insurance plan. Call member services at your health plan with any benefit or coverage questions. If you have not heard from the scheduling office within 2 business days, please call [phone] for [facility], for [place] and [phone] for [place]. * Diagnostic Imaging MRI (Routine) - Authorized Specialty Diagnoses / Procedures Referred By Osmar gallego Referred To Contact Radiology. Diagnoses History of cholesteatoma Procedures MR Brain w/o & w Contrast Chely Fernandez PA-C [address] [place] [address] Referral ID Status Reason Start Date Expiration Date V isits Requested Visits Authorized [id number] Authorized 11/19/2022 11/19/2023 1 1 Reason for Visit * Consultation (Routine: Next available opening) - Pending Review Specialty Diagnoses / Procedures Referred By Osmar gallego Referred To Contact Otolaryngology Diagnoses Otorrhea, unspecified laterality Kaykay Duarte, NARCOTICS DETECTIVE [address] [place] [address] Referral ID Status Reason Start Date Expiration Date V isits Requested Visits Authorized [id number] Pending Review 10/21/2022 10/21/2023 1 1 Encounter Details Date Type Department Care Team (Latest Contact Info) Description 11/19/2022 9:20 AM CDT Office Visit [facility] [address] [place] [address] Chely Fernandez PA-C [address] [place] [address] History of cholesteatoma (Primary Dx); Acute anxiety; Dizziness Social History Tobacco Use Types Packs/Day Years [...] suspected to have Coronavirus/COVID-19? No / Unsure 11/19/2022 8:26 AM CDT documented as of this encounter Last Filed Vital Signs Vital Sign Reading Time Taken Comments Blood Pressure 126/75 11/19/2022 9:21 AM CDT Pulse 75 11/19/2022 9:21 AM CDT Temperature 36.5 ??C (97.7 ??F) 11/19/2022 9:21 AM CD T Respiratory Rate - - Oxygen Saturation 98% 11/19/2022 9:21 AM CDT Inhaled Oxygen Concentration - - Weight 135.2 kg (298 lb) 11/19/2022 9:21 AM CDT Height 167.6 cm (5' 6) 11/19/2022 9:21 AM CDT Body Mass Index 48.1 11/19/2022 9:21 AM CDT documented in this encounter Progress Notes * Chely Fernandez PA-C - 11/19/2022 9:20 AM CDT Images from the original note were not included. Otolaryngology Clinic November 19, 2022 Chief Complaint: Cholesteatoma History of Present Illness: Billie Connolly is a 52 year old female who has a history of right sided cholesteatoma with right tympanomastoidectomy with ossicular chain reconstruction (TORP). She has seen Dr. Wood in the past but has not had a cleaning since 2016. She reports right sided ear pain for the last 9 months. She describes it as achy and it encompasses her whole ear. She has also felt like her hearing hasdecreased in the last year. She has also been experiencing dizziness for the last few months which she describes as a loss of balance. She denies a history of migraines. She denies any drainage. She is concerned about having a recurrence of cholesteatoma. 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 Past Surgical History: Past Surgical History: Procedure Laterality Date EP ABLATION SVT N/A 04/09/2022 Procedure: Ablation Supraventricular Tachycardia; Surgeon: Roderick Morelos MD; Location: HEART CARDIAC PILE HEADER ESOPHAGOSCOPY, GASTROSCOPY, DUODENOSCOPY (EGD), COMBINED N/A 10/15/2022 Procedure: ESOPHAGOGASTRODUODENOSCOPY, WITH BIOPSY; Surgeon: Luis A Escobedo MD; Location: [facility] EXCISE PILONIDAL CYST, SIMPLE MASTOID SURGERY Right TONSILLECTOMY & ADENOIDECTOMY TYMPANOMASTOIDECTOMY Medications: Current Outpatient Medications Medication Sig Dispense Refill [...] of breath or wheezing) 90 mL 1 blood glucose (ACCU-CHEK GUIDE) test strip USE 1 STRIP TO TEST THREE TIMES A DAY. Cyanocobalamin (B-12) [address] 1 tablet under the tongue daily 30 tablet 11 diazepam (VALIUM) 5 MG tablet Take 1 tablet (5 mg) by mouth as needed for anxiety Take 1-2 tablets 30 minutes prior to MRI 2 tablet 0 gabapentin (NEURONTIN) 600 MG tablet Take [...] daily Take in afternoon and at bedtime Syringe/Needle, Disp, (BD ECLIPSE SYRINGE/NEEDLE) 25G X 5/8 3 ML MISC 1 Syringe every 30 days 1 each 11 tirzepatide (MOUNJARO) 15 MG/0.5ML pen Inject 15 mg Subcutaneous every 7 days albuterol (PROVENTIL) (2.5 MG/3ML) 0.083% neb solution Take 1 vial (2.5 mg) by nebulization every 6hours as needed for shortness of breath / dyspnea or wheezing (Patient not taking: Reported on 11/03/2022) 90 mL 0 celecoxib (CELEBREX) 200 MG capsule TAKE ONE CAPSULE BY MOUTH TWICE A DAY NEEDED FOR PAIN (Patient not taking: Reported on 11/03/2022) estradiol (ESTRACE) 0.1 MG/GM vaginal cream Place a pea size amount on your finger and place in vagina daily (Patient not taking: Reported on 11/03/2022) fluticasone (FLOVENT HFA) 110 MCG/ACT inhaler Inhale 2 puffs into the lungs 2 times daily as neededTakes only when sick (Patient not taking: Reported on 11/03/2022) predniSONE (DELTASONE) 20 MG tablet Take two tablets (= 40mg) each day for 5 (five) days (Patient not taking: Reported on 11/03/2022) 10 tablet 0 Allergies: Allergies Allergen Reactions Ibuprofen Other (See Comments) Gastric sleeve Social History: Social History Tobacco Use Smoking status: Never Smokeless tobacco: Never Vaping Use Vaping Use: Never used Substance Use Topics Alcohol use: Yes Comment: socially Drug use: No ROS: 10 point ROS neg other than the symptoms noted above in the HPI. Physical Exam: BP 126/75 (BP Location: Left arm, Patient Position: Sitting, Cuff Size: Adult Large) Pulse 75 Temp 97.7 ??F (36.5 ??C) (Temporal) Ht 1.676 m (5' 6) Wt 135.2 kg (298 lb) SpO2 98% BMI 48.10 kg/m?? Constitutional: The patient was accompanied, well-groomed, and in no acute distress. Skin: Normal: warm and pink without rash Neurologic: Alert and oriented x 3. CN's III-XII within normal limits. Voice normal. Psychiatric: The patient's affect was calm, cooperative, and appropriate. Communication: Normal; communicates verbally, normal voice quality. Respiratory: Breathing comfortably without stridor or exertion of accessory muscles. Head/Face: Normocephalic and atraumatic. Eyes: Extraocular movement intact. Ears: See microscopy below Nose: No external deformity Neck: Supple with normal laryngeal and tracheal landmarks. Normal range of motion. Otologic microscope exam: Right ear was examined under the microscope. Post surgical thickened TM, small red, wet, ulcerationin the anterior inferior aspect of TM. It was cleaned with suction. Left ear was also examined under the microscope. Normal appearing TM, nicely aerated middle ear space. Audiogram: 11/19/2022 - data independently reviewed Right ear: Moderately severe to severe mixed hearing loss Left ear: Normal hearing SRT right: 60 left: 10 WR right: 84% left: 100% Acoustic Reflexes: left impsi present at normal levels, absent in all other conditions Tympanograms: type As right, type A left Most recent audiogram comparable to prior audiogram Assessment and Plan: 1. History of cholesteatoma Reviewed CT scan from 09/18/2022 revealed no recurrence of cholesteatoma. There was also complete opacification of the right mastoid. Due to patient pain she would like to proceed with an MRI for better characterization of the mastoid effusion. Results will be communicated with patient. Due to the sore noted in her right ear, a prescription for ciloxin and predforte will be sent to her pharmacy. - MR Brain w/o & w Contrast; Future 2. Acute anxiety Patient reports claustrophobia, will need some sedation for upcoming MRI. - diazepam (VALIUM) 5 MG tablet; Take 1 tablet (5 mg) by mouth as needed for anxiety Take 1-2 tablets 30 minutes prior to MRI Dispense: 2 tablet; Refill: 0 3. Dizziness Recommend physical therapy for addressing the dizziness. Symptoms do not sound consistent with BPPV. Etiology is unclear but is appropriate for vestibular therapy. - Physical Therapy Referral; Future Patient will follow up as scheduled Chely Fernandez PA-C Otolaryngology Head & Neck Surgery [phone] Review of external notes as documented elsewhere in note 60 minutes spent by me on the date of the encounter doing chart review, history and exam, documentation and further activities per the note Documented time does not include time spent on above procedure. documented in this encounter Plan of Treatment Upcoming Encounters Date Type Department Care Team (Late st Contact Info) Description 06/24/2023 12:30 PM CDT Virtual Visit [facility] [address] [phone] Geri Loza PA-C [address] [place] [address] 06/24/2023 1:00 PM CDT Virtual Visit [facility] [address] [phone] Sharee Negron, RD [address] [place] [address] [phone] Scheduled Orders Name Type Priority Associated Diagnoses Orde r Schedule MR Brain w/o & w Contrast Imaging Routine History of cholesteatoma Expected: 11/19/2022 (Approximate), Expires: 11/20/2023 Scheduled Referrals Name Type Priority Associated Diagnoses Orde r Schedule Physical Therapy Referral Referral Routine: Next available opening Dizziness Expected: 11/19/2022 (Approximate), Expires: 11/20/2023 documented as of this encounter Goals Goal Patient Goal Type Associated Problems Recent Progress Patient-Stated? Author BRIAN PATHWAY SURGERY IS SCHEDULED Care Plan BRIAN PATHWAY SURGERY IS SCHEDULED Luis A Blanc MD documented as of this encounter Visit Diagnoses Diagnosis History of cholesteatoma- Primary Personal history of other disorders of nervous system and sense organs Acute anxiety Anxiety state, unspecified Dizziness Dizziness and giddiness documented in this encounter Additional Health Concerns Problem Noted Date Diagnosed Date BRAIN PATHWAY SURGERY IS SCHEDULED 10/15/2022 documented as of this encounter Care Teams Waiter/Waitress Dining Car Relationship Specialty Start Date End Date Kaykay Duarte, NARCOTICS DETECTIVE [address] [place] [address] PCP - General 10/15/22 Roderick Morelos MD [address] [place] [address] Cardiovascular Disease 02/03/22 Magno Wood MD [address] [place] [address] 149395 Otolaryngology 02/21/22 Sophie Ocasio AuD [address] [place], [place] 146965 Mastercam Programmer Audiology 02/21/22 Henny Rosales APRN TOBACCO CHECKOUT CLERK [address] [place] [phone] Assigned Heart and Vascular Provider 08/09/[address] [place], [place] 259645 Registered Dietitian Dietitian, Registered 09/02/22 Chrisitane Rodríguez MD [address] [place] [address] [phone] Otolaryngology 11/12/22 Luis A Escobedo MD [address] [place] [address] Assigned Surgical Provider 11/01/22 11/28/22 documented as of this encounter
--- OUTSIDE RECORDS SUMMARY | 2023-05-09 18:23 | XMS_ITS | Encounter Summary ---
Author Name Unknown Organization [facility] Address [address] [place] [address] Care Team Providers Care Biological Inspector Name Role Phone Roderick Morelos MD Unavailable [phone] Magno Wood MD Unavailable [phone] Sophie Ocasio AuD Unavailable [phone] Henny Rosales APRN ESTATE AND TRUST TAX PRINCIPAL Unavailable [phone] Unavailable Kaykay Duarte WIG DRESSER Primary Care Provider [phone] Christiane Rodríguez MD Unavailable [phone] Luis A Escobedo MD Unavailable [phone] Encounter Details Date Type Department Care Team (Latest Contact Info) Description 11/19/2022 8:30 AM CDT Office Visit [facility] Audiology [address] 4[address] [place] [address] Chely Pitt AuD [address] [place] [address] [phone] 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 See audiogram for results. RECOMMENDATIONS: Follow-up with ENT. Frida Johnson, [place] #[id number] documented in this encounter Plan of Treatment Upcoming Encounters Date Type Department Care Team (Late st Contact Info) Description 06/24/2023 12:30 PM CDT Virtual Visit [facility] [address] [address] Geri Loza PA-C [address] [place] [address] [phone] 06/24/2023 1:00 PM CDT Virtual Visit [facility] [address] [phone] Sharee Negron, ÁNGEL [address] [place] [address] [phone] documented as of this encounter Goals Goal Patient Goal Type Associated Problems Recent Progress Patient-Stated? 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 IN COMPREHENSIVE HEARING TEST Routine 11/19/2022 9:19 AM CDT 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 AUDIOGRAM/TYMPANOGRAM - INTERFACE 11/19/2022 8:28 AM CDT documented in this encounter Results * AUDIOGRAM/TYMPANOGRAM - INTERFACE (11/19/2022 8:28 AM CDT) 11/19/2022 8:28 AM CDT Provider Unknown PROCEDURES documented in this encounter Visit Diagnoses Diagnosis 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- Primary documented in this encounter Additional Health Concerns Problem Noted Date Diagnosed Date BRIAN PATHWAY SURGERY IS SCHEDULED 10/15/2022 documented as of this encounter Care Teams Biological Inspector Relationship Specialty [place] [address] [place] [address] PCP - General 10/15/22 Roderick Morelos MD [address] [place], [place] 843785 Cardiovascular Disease 02/03/22 Magno Wood MD [address] [facility] [phone] Otolaryngology 02/21/22 Sophie Ocasio AuD [address] [place], [place] 005295 Roller Helper Audiology 02/21/22 Henny Rosales APRN ESTATE AND TRUST TAX PRINCIPAL [address] [place] [phone] Assigned Heart and Vascular Provider 08/09/[address] [place], [place] [phone] Registered Dietitian Dietitian, Registered 09/02/22 Christiane Rodríguez MD [address] [facility] [address] Otolaryngology 11/12/22 Luis A Escobedo MD [address] [facility] 195 [address] Assigned Surgical Provider 11/01/22 11/28/22 documented as of this encounter
--- OUTSIDE RECORDS SUMMARY | 2023-05-09 18:23 | XMS_ITS | Encounter Summary ---
Author Name Unknown Organization [facility] Address [address] [place] [address] Care Team Providers Care District Operations Manager Name Role Phone Roderick Morelos MD Unavailable [phone] Magno Wood MD Unavailable [phone] Sophie Ocasio AuD Unavailable [phone] Henny Rosales LOCK SETTER INDUSTRIAL PIPEFITTER JOURNEYMAN Unavailable [phone] Unavailable Kaykay Duarte PAYROLL LEAD Primary Care Provider [phone] Christiane Rodríguez MD Unavailable [phone] Luis A Escobedo MD Unavailable [phone] Encounter Details Date Type Department Care Team (Latest Contact Info) Description 11/19/2022 Travel Social History Tobacco Use Types Packs/Day [...] 06/24/2023 12:30 PM CDT Virtual Visit [facility] [address] [phone] Geri Loza PA-C [address] [place] [address] [phone] 06/24/2023 1:00 PM CDT Virtual Visit [facility] [address] [address] Sharee Negron, RD [address] [place] [address] [phone] documented as of this encounter Goals Goal [...] documented as of this encounter Care Teams District Operations Manager Relationship Specialty [place] [address] [place] [address] PCP - General 10/15/22 Roderick Morelos MD [address] [place], [place] 264665 Cardiovascular Disease 02/03/22 Magno Wood MD [address] [place] [address] 093035 Otolaryngology 02/21/22 Sophie Ocasio AuD [address] [place] [address] Watch Manufacturing Supervisor Audiology 02/21/22 Henny Rosales APRN INDUSTRIAL PIPEFITTER JOURNEYMAN [address] [place] [address] Assigned Heart and Vascular Provider 08/09/[address] [place] [address] Registered Dietitian Dietitian, Registered 09/02/22 Christiane Rodríguez MD [address] [facility] 396 [place] [address] Otolaryngology 11/12/22 Luis A Escobedo MD [address] [facility] 195 [place], [place] 930815 Assigned Surgical Provider 11/01/22 11/28/22 documented as of this encounter
--- OUTSIDE RECORDS SUMMARY | 2023-05-09 18:23 | XMS_ITS | Encounter Summary ---
Author Name Unknown Organization [facility] Address [address] [place] [address] Care Team Providers Care Mobile Game Engineer Name Role Phone Roderick Morelos MD Unavailable [phone] Magno Wood MD Unavailable [phone] Sophie Ocasio AuD Unavailable [phone] Henny Rosales VINEYARDIST TANNERY GUMMER Unavailable [phone] Unavailable Kaykay Duarte CERTIFIED TOWER CLIMBER Primary Care Provider [phone] Christiane Rodríguez MD Unavailable [phone] Luis A Escobedo MD Unavailable [phone] Chely Fernandez PA-C Unavailable [phone] Jing Cadena APRN SENIOR C WEB DEVELOPER Unavailable [phone] Radha Lopez [facility] Unavailable [phone] Luis A Escobedo MD Unavailable [phone] Geri Loza PA-C Unavailable [phone] Encounter Details Date Type Department Care Team (Late st Contact Info) Description 11/21/2022 [facility] [address] [place] [phone] Geri Loza PA-C [address] [place] [address] [phone] Social History Tobacco Use Types Packs/Day Years [...] Description 06/24/2023 12:30 PM CDT Virtual Visit [facility] [address] [phone] Geri Loza PA-C [address] [place] [address] [phone] 06/24/2023 1:00 PM CDT Virtual Visit [facility] [address] [phone] Sharee Negron, RD [address] [place] [address] [phone] documented as of this encounter Goals Goal [...] documented as of this encounter Care Teams Mobile Game Engineer Relationship Specialty Start Date End Date Kaykay Duarte, CERTIFIED TOWER CLIMBER [address] [place] [address] PCP - General 10/15/22 Roderick Morelos MD [address] [place] [address] Cardiovascular Disease 02/03/22 Magno Wood MD [address] [place] [address] 809285 Otolaryngology 02/21/22 Sophie Ocasio AuD [address] [place] [address] [phone] Environmental Adviser Audiology 02/21/22 Henny Rosales APRN TANNERY GUMMER [address] [place] [phone] Assigned Heart and Vascular Provider 08/09/[address] [place] [address] [phone] Registered Dietitian Dietitian, Registered 09/02/22 Christiane Rodríguez MD [address] [place] [address] [phone] Otolaryngology 11/12/22 Luis A Escobedo MD [address] [place] [address] [phone] Assigned Surgical Provider 11/01/22 11/28/22 Chely Fernandez PA-C [address] [place], [place] 109015 Assigned Surgical Provider 11/29/22 02/06/23 Jing Cadena, VINEYARDIST SENIOR C WEB DEVELOPER 420 [facility] 450 [place] [address] Clinical Nurse Specialist Anesthesiology 01/15/23 Radha Lopez, [facility] [address] [place] [address] [phone] Pharmacist Pharmacist 01/16/23 Luis A Escobedo MD 420 [facility] 195 [place], [place] 599935 Assigned Surgical Provider 02/07/23 04/15/23 Geri Loza PA-C 9 [place], [place] 229295 Assigned Surgical Provider 04/16/23 documented as of this encounter
--- OUTSIDE RECORDS SUMMARY | 2023-05-09 18:23 | XMS_ITS | Encounter Summary ---
Author Name Unknown Organization [facility] Address [address] [place] [address] Care Team Providers Care Lumber Sorter Name Role Phone Roderick Morelos MD Unavailable [phone] Magno Wood MD Unavailable [phone] Sophie Ocasio AuD Unavailable [phone] Henny Rosales APRN BROADCASTING EQUIPMENT MECHANIC Unavailable [phone] Unavailable Kaykay Duarte NP Primary Care Provider [phone] Christiane Rodríguez MD Unavailable [phone] Luis A Escobedo MD Unavailable [phone] Reason for Visit * Reason Onset Date Comments Appointment 11/17/2022 Encounter Details Date Type Department Care Team (Late st Contact Info) Description 11/17/2022 Telephone M [facility] Weight Management Clinic [address] [place] [address] Geri Loza PA-C [address] [place] [address] Appointment Social History Tobacco Use Types Packs/Day Years [...] AM CDT documented as of this encounter Miscellaneous Notes * Telephone Encounter - Ramonita Alvarez - 11/17/2022 2:46 PM CDT M and sent mychart regarding the following: Follow-up with Geri Loza around 02/05/23 documented in this encounter Plan of Treatment Upcoming Encounters Date Type Department Care Team (Late st Contact Info) Description 06/24/2023 12:30 PM CDT Virtual Visit [facility] Weight Management Clinic [address] [phone] Geri Loza PA-C [address] [place] [address] [phone] 06/24/2023 1:00 PM CDT Virtual Visit [facility] Weight Management [address] [phone] Sharee Negron, RD [address] [place] [address] [phone] documented as of this encounter Goals Goal Patient Goal Type Associated Problems Recent Progress Patient-Stated? Author BRIAN PATHWAY SURGERY IS SCHEDULED Care Plan BRIAN PATHWAY SURGERY IS SCHEDULED No Luis A Escobedo MD documented as of this encounter Visit Diagnoses Not on filedocumented in this encounter Additional Health Concerns Problem Noted Date Diagnosed Date RBIAN PATHWAY SURGERY IS SCHEDULED 10/15/2022 documented as of this encounter Care Teams Lumber Sorter Relationship Specialty [place] [address] [address] PCP - General 10/15/22 Roderick Morelos MD [address] [place] [address] Cardiovascular Disease 02/03/22 Magno Wood MD [address] [place] [address] 746385 Otolaryngology 02/21/22 Sophie Ocasio AuD [address] [place] [address] [phone] Director Learning Audiology 02/21/22 Henny Rosales APRN BROADCASTING EQUIPMENT MECHANIC [address] [place] [phone] Assigned Heart and Vascular Provider 08/09/[address] [place] [address] [phone] Registered Dietitian Dietitian, Registered 09/02/22 Christiane Rodríguez MD [address] [place] [address] [phone] Otolaryngology 11/12/22 Luis A Escobedo MD [address] [place] [address] [phone] Assigned Surgical Provider 11/01/22 11/28/22 documented as of this encounter
--- OUTSIDE RECORDS SUMMARY | 2023-05-09 18:23 | XMS_ITS | Encounter Summary ---
Author Name Unknown Organization [facility] [place] Address [address] [place] [address] Care Team Providers Care Hand Welt Butter Name Role Phone Roderick Morelos MD Unavailable [phone] Magno Wood MD Unavailable [phone] Sophie Ocasio AuD Unavailable [phone] Henny Rosales APRN EXPORT SALES ASSISTANT Unavailable Sharee Negron RD Unavailable Kaykay Duarte NP Primary Care Provider [phone] Christiane Rodríguez MD Unavailable Luis A Escobedo MD Unavailable [phone] Reason for Visit * Reason Onset Date Comments Patient Request 11/19/2022 Per pt needs ref erral sent to [facility] Encounter Details Date Type Department Care Team (Late st Contact Info) Description 11/19/2022 Telephone [facility] Ear Nose and Throat [address] [place] [address] Chely Fernandez PA-C [address] [place] [address] Patient Request (Per pt needs referral sent to [facility]) Social History Tobacco Use Types Packs/Day Years [...] encounter Miscellaneous Notes * Telephone Encounter - Tonie Flowers LPN - 11/19/2022 11:07 AM CDT Spoke to patient and advised that commercial loan underwriter confirmed with Chely that it would be ok to have MRI doneat [facility] and have faxed the order to [facility] at [phone]. Also advised pt to ask [facility] to send report and images to ordering provider for review. Pt verbalized understanding of information given and appreciative of call. * Telephone Encounter - Reina Black - 11/19/2022 10:35 AM CDT M [facility] Call Center Phone Message May a detailed message be left on voicemail: yes Reason for Call: Other: Per pt wants to have MRI done at [facility]. Pt only had P [phone] for the location. Thank you Action Taken: Message routed to: [facility] ENT Travel Screening: Not Applicable documented in this encounter Plan of Treatment Upcoming Encounters Date Type Department Care Team ([facility] st Contact Info) Description 06/24/2023 12:30 PM CDT Virtual Visit [facility] Weight Management Clinic [address] 4th [place] [address] Geri Loza PA-C [address] [place] [address] 06/24/2023 1:00 PM CDT Virtual Visit [facility] Weight Management Clinic [place] [id number] [facility] 4th [place] [phone] Migdalia Sharee Jeremy, RD [address] [place] [address] documented as of this encounter Goals Goal [...] documented as of this encounter Care Teams Hand Welt Butter Relationship Specialty Start Date End Date Kaykay Duarte, BREWERY WORKER [address] [place] [address] PCP - General 10/15/22 Roderick Morelos MD [address] [place] [address] Cardiovascular Disease 02/03/22 Magno Wood MD [address] [place] [address] [address] [place], [place] 730585 Otolaryngology 02/21/22 Sophie Ocasio AuD [address] [place] [address] [phone] Independent Living Specialist Audiology 02/21/22 Henny Rosales APRN EXPORT SALES ASSISTANT [address] [place] [phone] Assigned Heart and Vascular Provider 08/09/[address] [place], [place] [phone] Registered Dietitian Dietitian, Registered 09/02/22 Christiane Rodríguez MD [address] [place] [address] Otolaryngology 11/12/22 Luis A Escobedo MD [address] [place] [address] Assigned Surgical Provider 11/01/22 11/28/22 documented as of this encounter
--- OUTSIDE RECORDS SUMMARY | 2023-05-09 18:23 | XMS_ITS | Encounter Summary ---
Author Name Unknown Organization [facility] Address [address] [place] [address] Care Team Providers Care Radiosonde Specialist Name Role Phone Roderick Morelos MD Unavailable [phone] Magno Wood MD Unavailable [phone] Sophie Ocasio AuD Unavailable Henny Rosales APRN SECURITY TRAINER Unavailable [phone] Unavailable Kaykay Duarte TRASH COLLECTOR TRUCK DRIVER Primary Care Provider [phone] Christiane Rodríguez MD Unavailable [phone] Luis A Escobedo MD Unavailable [phone] Encounter Details Date Type Department Care Team (Late st Contact Info) Description 11/13/2022 Telephone [facility] Ear Nose and Throat Clinic [address] [place] [address] Chely Fernandez PA-C [address] [place] [address] Social History Tobacco Use Types Packs/Day [...] encounter Miscellaneous Notes * Telephone Encounter - Anderson Moore - 11/13/2022 1:03 PM CDT Pt calling in and was under assumption that there was hearing appointments on same day as ent visitthis sports book writer can not gain access to any of those. She is wondering if the hearing test from September 11 done at same appointment from referring provider is ok to have them send it over? Please reach outto pt and advise her if this is ok or [facility] Thank you documented in this encounter Plan of Treatment Upcoming Encounters Date Type Department Care Team (Late st Contact Info) Description 06/24/2023 12:30 PM CDT Virtual Visit [facility] Weight Management Clinic [address] [phone] Geri Loza PA-C [address] [place] [address] [phone] 06/24/2023 1:00 PM CDT Virtual Visit [facility] Weight Management Clinic [address] [phone] Sharee Negron, ÁNGEL [address] [place] [address] [phone] documented as of this encounter Goals Goal [...] documented as of this encounter Care Teams Radiosonde Specialist Relationship Specialty [place] [address] [place] [address] PCP - General 10/15/22 Roderick Morelos MD [address] [place] [address] Cardiovascular Disease 02/03/22 Magno Wood MD [address] [place] [address] 125015 Otolaryngology 02/21/22 Sophie Ocasio AuD [address] [place] [address] [phone] Technical Instructor Audiology 02/21/22 Henny Rosales APRN SECURITY TRAINER [address] [place] [phone] Assigned Heart and Vascular Provider 08/09/[address] [place] [address] [phone] Registered Dietitian Dietitian, Registered 09/02/22 Christiane Rodríguez MD [address] [place] [address] [phone] Otolaryngology 11/12/22 Luis A Escobedo MD [address] [place] [address] Assigned Surgical Provider 11/01/22 11/28/22 documented as of this encounter
--- OUTSIDE RECORDS SUMMARY | 2023-05-09 18:23 | XMS_ITS | Encounter Summary ---
Author Name Unknown Organization [facility] Address [address] [place] [address] Care Team Providers Care Staff Air Defense Officer Name Role Phone Roderick Morelos MD Unavailable [phone] Magno Wood MD Unavailable [phone] Sophie Ocasio Unavailable [phone] Henny Rosales APRN LAND CLASSIFIER Unavailable Sharee Negron RD Unavailable Kaykay Duarte NP Primary Care Provider Christiane Rodríguez MD Unavailable Chely Fernandez PA-C Unavailable [phone] Reason for Visit * Reason Comments RECHECK Encounter Details Date Type Department Care Team (Latest Contact Info) Description 12/04/2022 9:30 AM CDT Virtual Visit M [facility] Weight Management Clinic [address] 4th [place] [address] Sharee Negron, RD [address] [place] [address] [phone] Nutritional counseling (Primary Dx); S/P laparoscopic sleeve [...] PHQ-2 Answer Date Recorded PHQ-2 Score 0 12/04/2022 Sex and Gender Information Value Date Recorded [...] - Inhaled Oxygen Concentration - - Weight 132.5 kg (292 lb) 12/04/2022 9:21 AM CDT Height 167.6 cm (5' 6) 12/04/2022 9:21 AM CDT Body Mass Index 47.13 12/04/2022 9:21 AM CDT documented in this encounter Patient Instructions * Patient Instructions* Sharee Negron, ÁNGEL - 12/04/2022 9:30 AM CDT Goals: Specific things discussed today: Aim to stay consistent with eating habits Continue working on hydration Mindful with food choices (low sugar, low fat, protein centric) General goals: Relating To Eating: - Eat slowly (20-30 [...] vitamins/minerals as recommended Supplements after Sleeve Gastrectomy https://[email or web address] Weight loss prior to surgery: -20 lbs [...] Clear Protein Drinks: BiPro Premier Protein clear [id number] [facility] Protein 15 Concentrate Bone broth Beneprotein protein powder mixed with 4-6 oz of fluid [id number] After Weight Loss Surgery Why Take Supplements for Life after Weight Loss Surgery https://[email or web address] Keeping Up Your Diet after Weight Loss Surgery https://[employer]/[email or web address] Preventing Low Blood Sugar after Weight Loss Surgery https://[employer]/543252.pdf Preventing Dumping Syndrome after Weight Loss Surgery https://[employer]/[email or web address] Follow-Ups: 01/07/23 and 02/04/[address], Clinic #: [phone] documented in this encounter Progress Notes * Sharee Negron RD - 12/04/2022 9:30 AM CDT Images from the original note were not included. Video-Visit Details Type of service: Video Visit Video Start Time: 9:29 am Video End Time: 9:44 am Originating Location (pt. Location): Home Distant Location (provider location): Offsite (providers home) Platform used for Video Visit: [facility] Nutrition Assessment Reason For Visit: Billie Connolly is a 51 year old female presents today for re-establish nutrition visit. Pt with history of sleeve gastrectomy 08/09/[address] [facility] [address] Barillas. Patient referred by Geri Loza PA-C on August 15, 2022. Patient with Co-morbidities of obesity including: Type II DM Sleep apnea Joint pain - chronic right hip pain GERD PMH: hypothyroidism, SVT, RLS Anthropometrics: Pre-op Weight: 338 lbs Weight 08/15/22: 305 lbs with BMI 49.23 Estimated body mass index is 47.13 kg/m?? as calculated from the following: Height as of this encounter: 1.676 m (5' 6). Weight as of this encounter: 132.5 kg (292 lb). Current weight: 292 lbs, pt report Goal weight for surgery -20 lbs, 285 lbs Medications for weight loss: Orlistat added 09/02/22 - Denied, doing OTC Ally instead. Mouncristianero - has type 2 diabetes Current Vitamins/Minerals: SL B12 [place] with iron Vitamin D 2,000 international unit(s)/day Labs 08/20/22 A1C 7.2 TSH elevated Labs 10/23/22 Vit D low at 26 - Started taking Vitamin D since then TSH elevated PTH WNL Nutrition History: NKFA Not huge on fish/seafood [...] Eating until full. Doing lots of eggs, clay maker salads and chicken. Dx with covid over [...] done, on file under Media tab 11/27/22. Previous goals: Continue working on chewing/pace - Met Continue working on protein centered eating - Met Continue staying well hydrated (Small, frequent sips) and fluids from meal time. - Up/down. Recommend adding 2,000 international unit(s)/day of Vitamin D - Met Additional information: FT - Network Operations Project Manager No data to display No data to [...] RD contact information. Expected Engagement: good Goals: Specific things discussed today: Aim to stay consistent with eating habits Continue working on hydration Mindful with food choices (low sugar, low fat, protein centric) General goals: Relating To Eating: - Eat slowly (20-30 [...] vitamins/minerals as recommended Supplements after Sleeve Gastrectomy https://[employer]/[email or web address] Weight loss prior to surgery: -20 lbs [...] Clear Protein Drinks: BiPro Premier Protein clear [id number] [facility] Protein 15 Concentrate Bone broth Beneprotein protein powder mixed with 4-6 oz of fluid [id number] After Weight Loss Surgery Why Take Supplements for Life after Weight Loss Surgery https://[employer]/[email or web address] Keeping Up Your Diet after Weight Loss Surgery https://[employer]/[email or web address] Preventing Low Blood Sugar after Weight Loss Surgery https://[employer]/450658.pdf Preventing Dumping Syndrome after Weight Loss Surgery https://[employer]/752601.pdf Follow-Ups: 01/07/23 and 02/04/23 Time spent with patient: 15 minutes. SIVA Matias, RD, LD documented in this encounter Nursing Notes * Socorro Nj - 12/04/2022 9:30 AM CDT Is the patient currently in the state of [place]? YES Visit mode:VIDEO If the visit is dropped, the patient can be reconnected by: VIDEO VISIT: Text to cell phone: Telephone Information: and VIDEO VISIT: Send to e-mail at: Will anyone else be joining the visit? NO (If patient encounters technical issues they should call [phone]) How would you like to obtain your AVS? MyChart Are changes needed to the allergy or medication list? No Reason for visit: RECHECK [place] N[place] VVF documented in this encounter Plan of Treatment Upcoming Encounters Date Type Department Care Team (Late st Contact Info) Description 06/24/2023 12:30 PM CDT Virtual Visit [facility] Management [facility] [address] [phone] Geri Loza PA-C [address] [place], [place] [phone] 06/24/2023 1:00 PM CDT Virtual Visit [facility] [address] [phone] Sharee Negron, RD [address] [place], [place] [phone] documented as of this encounter Goals Goal [...] documented as of this encounter Care Teams Staff Air Defense Officer Relationship Specialty [place] [address] [place] [address] PCP - General 10/15/22 Roderick Morelos MD [address] [place] [address] Cardiovascular Disease 02/03/22 Magno Wood MD [address] [phone] Otolaryngology 02/21/22 Sophie Ocasio AuD [address] [place] [address] [phone] Windows Technical Specialist Audiology 02/21/22 Henny Rosales APRN LAND CLASSIFIER [address] [place] [phone] Assigned Heart and Vascular Provider 08/09/[address] [place] [address] [phone] Registered Dietitian Dietitian, Registered 09/02/22 Christiane Rodríguez MD [address] [place] [address] [phone] Otolaryngology 11/12/22 Chely Fernandez PA-C [address] [place] [address] [phone] Assigned Surgical Provider 11/29/22 02/06/23 documented as of this encounter
--- OUTSIDE RECORDS SUMMARY | 2023-05-09 18:23 | XMS_ITS | Encounter Summary ---
Author Name Unknown Organization [facility] Address [address] [place] [address] Care Team Providers Care International Account Manager Name Role Phone Roderick Morelos MD Unavailable Magno Wood MD Unavailable [phone] Sophie Ocasio AuD Unavailable [phone] Henny Rosales PUBLIC OPINION SURVEY TAKER MAINTENANCE PLANNER Unavailable [phone] Unavailable Kaykay Duarte NP Primary Care Provider [phone] Luis A Escobedo MD Unavailable [phone] Reason for Visit * Reason Comments RECHECK Encounter Details Date Type Department Care Team (Latest Contact Info) Description 11/05/2022 2:00 PM CDT Virtual Visit [facility] [address] [place] [address] Geri Loza PA-C [address] [place] [address] S/P laparoscopic sleeve gastrectomy (Primary Dx); [...] - Inhaled Oxygen Concentration - - Weight 134.7 kg (297 lb) 11/05/2022 1:39 PM CDT Height 167.6 cm (5' 6) 11/05/2022 1:39 PM CDT Body Mass Index 47.94 11/05/2022 1:39 PM CDT documented in this encounter Patient Instructions * Patient Instructions* Geri Loza PA-C - 11/05/2022 2:00 PM CDT Antonio Wise, Thank you for allowing us [...] LOZA PA-C today. Instructions per today's visit: Complete 6 dietitian visit Goal weight of 289lbs Complete psych eval Will reach out about next steps to see if surgery can be scheduled in February Geri Gaytan in 2-3 months Important contact and scheduling information: Please call our contact center at [phone] to schedule your next appointments. For any nursing questions or concerns call Angélica Milligan LPN at [phone] or Henny Lobo RN [phone] Please call during clinic hours Thursday through Thursday 8:00a - 4:00p if you have questions or you can contact us via SocialMadeSimple at anytime and we will reply during [...] convenience. To schedule the Lab Appointment using SocialMadeSimple: Select Schedule an Appointment Select Lab Only For A couple of questions, select Other For Which locations work for you?, select the location and set up the appointment To schedule by phone call [phone] to schedule a lab only appointment at any [facility] lab. Work with A Health Biodiesel Product Development Manager! Virtual Sessions are Available through [facility] Weight Management Clinics To learn more, call to schedule a free, Health Biodiesel Product Development Manager Q&A appointment: [phone] What is Health Coaching? Do you know what you are supposed to do, but you just aren't doing it? Then, HEALTH COACHING may help you! Get unstuck and move forward with the support of a professionally trained NBC- HWC (National Board-Certified Health and Director Process) who uses evidence-based approaches to help you [...] Visits, and a 7 months subscription to [employer]-- on-demand fitness, nutrition and mindfulness classes, for $499 (employee discounts may be available). Participants will also meet regularly with a weight management Medical Provider and a Registered/Licensed Network Operations Project Manager. This is a self-pay service; we do not accept insurance for health coaching. To Schedule a free Health Biodiesel Product Development Manager Q&A appointment to learn more, call [phone]. [facility] Healthy Lifestyle Virtual Support Group Healthy Lifestyle Virtual Support Group? This is 60 minutes of small group guided discussion, support and resources. All are welcome who want a healthy lifestyle. WHEN: Starting in September 2022, this group meets the Thursday of the month from 12:30 PM - 1:30 PM virtually using Mondokio. RESEARCH PHYSIOLOGIST: Led by National Board Certified Health and Director Process, [employer] [facility], [facility]. TO REGISTER: Please send an email to [employer] at? to receive monthly invites to the group or if you have any questions about having a health coach operator. Prior to the meeting, a link with directions on how to join the meeting will be sent to you. 2022 Meetings August 08: Let's Talk August 29: Create Your Coaching Toolkit: Learn How to Biodiesel Product Development Manager Yourself September 26: Let's Talk October 24: Benefits of Fiber with ÁNGEL Escaolna November 21: Show and Tell (share your aps, podcasts, recipes, hacks, books) December 26 :Let's Talk January 23: Introduction to Mindfulness February 20: Let's Talk If you would like bariatric surgery specific support group info please let your care team know. Thank you, [facility] Comprehensive Weight Management Team documented in this encounter Progress Notes * Geri Loza PA-C - 11/05/2022 2:00 PM CDT Virtual Visit Details Type of service: Video Visit Video Start Time: 2:00PM Video End Time:2:28PM Originating Location (pt. Location): Home Distant Location (provider location): Off-site Platform used for Video Visit: [facility] Bariatric Surgery Note RE: Billie Connolly MR#: [id number] : 1970 VISIT DATE: Nov 05, 2022 Dear Kaykay Duarte, I had the pleasure of seeing your patient, Billie Connolly, in my post-bariatric surgery assessment clinic. Assessment & Plan Problem List Items Addressed This Visit Digestive Class 3 severe obesity with serious comorbidity and body mass index (BMI) of 45.0 to 49.9 in adult,unspecified obesity type (H) Other S/P laparoscopic sleeve gastrectomy - Primary Relevant Medications Cyanocobalamin (B-12) 500 MCG SUBL Complete 6 dietitian visit Goal weight of 289lbs Complete psych eval Will reach out about next steps to see if surgery can be scheduled in February Geri Gaytan in 2-3 months 30 minutes spent by me on the date of the encounter doing chart review, history and exam, documentation and further activities per the note CHIEF COMPLAINT: Post-bariatric surgery follow-up. 2 years s/p gastric sleeve with [facility]. HISTORY OF PRESENT ILLNESS: 11/02/2022 4:56 PM Questions Regarding Prior Weight Loss Surgery Reviewed [...] today? No S/p gastric sleeve 08/09/2020 at [facility]. No post op complications. Weight prior to [...] follow up with Dr. Escobedo after EGD. EGD completed 10/15/2022. Clinic visit with Dr. Escobedo 10/23/2022 Did confirm insurance covers conversion - required psych eval and 6 dietian visits. Has psych eval scheduled for November Is possibly losing insurance by the end of the year. Hoping to have surgery by February. Will know in December if will be losing coverage. Goal weight of 289lbs Anti-obesity medications: Current: Mounjaro 15mg - no side effects. Is helpful with diabetes. Feeling funk quicker. Marquez - started over the past 2 weeks. Takes it with every meal. Has not had any side effects. Was not sure if it is helpful Recent diet changes: Eating 3 meals a day. No snacks in between. Started a no carb diet, and has been able to lose 8lbs. Following Dr. Escobedo's fork diet well. Drinking 80-100oz. Recent exercise/activity changes: very active at work. Continues to have back and hip pain. Recent stressors: Moderate Recent sleep changes: Worse with Covid Vitamins/Labs: to be started Vitamin D 2000IU, MV, B12 injection was prescribed, but couldn't do itfrom herself. Reviewed labs. GERD - increased omeprazole 40mg BID with relief. No longer having any symptoms. Weight History: 11/02/2022 4:56 PM -- What is your highest lifetime weight? 352 What is your lowest weight since surgery? (In pounds) 298.7 Initial Weight (lbs): 305 lbs Weight: 134.7 kg (297 lb) Cumulative weight loss (lbs): 8 Weight Loss Percentage: 2.62% 11/02/2022 4:56 PM Questions Regarding Co-Morbidities and Health Concerns Reviewed With Patient Pre-diabetes Stayed the same Diabetes II Stayed the same What was your most recent hemoglobin a1c 7 How many years have you had diabetes? 2 High Blood Pressure Stayed the same High cholesterol Stayed the same Heartburn/Reflux Improved Sleep apnea Improved PCOS Never Back pain Stayed the same Joint pain Worsened Lower leg swelling Never 11/02/2022 4:56 PM Eating Habits How many meals do you eat per day? 3 Do you snack between meals? Sometimes How much food are you eating at each meal? 1/2 cup to 1 cup Are you able to separate your meals and liquids by at least 30 minutes? Yes Are you able to avoid liquid calories? Yes 11/02/2022 4:56 PM Exercise Questions Reviewed With Patient How often do you exercise? Never What keeps you from being more active? I am as active as I can possbily be Pain Social History: 11/02/2022 4:56 PM -- Are you smoking? No Are you drinking alcohol? No Medications: Current Outpatient Medications Medication Cyanocobalamin (B-12) 500 MCG SUBL albuterol (PROAIR HFA/PROVENTIL HFA/VENTOLIN HFA) 108 (90 Base) MCG/ACT inhaler albuterol (PROVENTIL) (2.5 MG/3ML) 0.083% neb solution albuterol (PROVENTIL) (2.5 MG/3ML) 0.083% neb solution blood glucose (ACCU-CHEK GUIDE) test strip celecoxib (CELEBREX) 200 MG capsule estradiol (ESTRACE) 0.1 MG/GM vaginal cream fluticasone (FLOVENT HFA) 110 MCG/ACT inhaler gabapentin (NEURONTIN) 600 MG tablet levonorgestrel (MIRENA) 52 MG (20 mcg/day) IUD levothyroxine (SYNTHROID/LEVOTHROID) 200 MCG tablet omeprazole (PRILOSEC) [address] capsule predniSONE (DELTASONE) 20 MG tablet rOPINIRole (REQUIP) 2 MG tablet Syringe/Needle, Disp, (BD ECLIPSE SYRINGE/NEEDLE) 25G X 5/8 3 ML MISC tirzepatide (MOUNJARO) 15 MG/0.5ML pen No current facility-administered medications for this visit. 11/02/2022 4:56 PM -- Do you avoid NSAIDs such as (Ibuprofen, Aleve, Naproxen, Advil)? Yes ROS: GI: 11/02/2022 4:56 PM -- Vomiting No Diarrhea No Constipation No Swallowing trouble No Abdominal pain No Heartburn No Skin: 11/02/2022 4:56 PM BAR RBS ROS - SKIN Rash in skin folds No Psych: 11/02/2022 4:56 PM -- Depression No Anxiety No Female Only: 11/02/2022 4:56 PM BAR RBS ROS - Female only control Stress urinary incontinence No Objective Ht 1.676 m (5' 6) Wt 134.7 kg (297 lb) BMI 47.94 kg/m?? Vitals: No vitals were obtained today due [...] and appearance well-groomed. Sincerely, GERI LOZA PA-C documented in this encounter Nursing Notes * Daljit Enamorado - 11/05/2022 2:00 PM CDT Is the patient currently in the state of [place]? YES Visit mode:VIDEO If the visit is dropped, the patient can be reconnected by: VIDEO VISIT: Text to cell phone: [phone] Will anyone else be joining the visit? NO How would you like to obtain your AVS? MyChart Are changes needed to the allergy or medication list? NO Reason for visit: RECHECK [facility] on 11/05/2022 at 1:40 PM documented in this encounter Plan of Treatment Upcoming Encounters Date Type Department Care Team (Late st Contact Info) Description 06/24/2023 12:30 PM CDT Virtual Visit [facility] [address] [phone] Geri Loza PA-C [address] [place] [phone] 06/24/2023 1:00 PM CDT Virtual Visit [facility] [address] [phone] Sharee Negron, RD [address] [place] [address] documented as of this encounter Goals [...] documented as of this encounter Care Teams International Account Manager Relationship Specialty [place] [address] [place] [address] PCP - General 10/15/22 Roderick Morelos MD [address] [place] [address] Cardiovascular Disease 02/03/22 Magno Wood MD [address] [place] [address] Otolaryngology 02/21/22 Sophie Ocasio AuD [address] [place] [address] Electric Spot Welder Audiology 02/21/22 Henny Rosales APRN MAINTENANCE PLANNER [address] [place] [phone] Assigned Heart and Vascular Provider 08/09/[address] [place] [address] Registered Dietitian Dietitian, Registered 09/02/22 Luis A Escobedo MD [address] [place] [address] [address] [place] [address] Assigned Surgical Provider 11/01/22 11/28/22 documented as of this encounter
--- OUTSIDE RECORDS SUMMARY | 2023-05-09 18:23 | XMS_ITS | Encounter Summary ---
Author Name Unknown Organization [facility] Address [address] [place] [address] Care Team Providers Care Mold Yarn Supervisor Name Role Phone Roderick Morelos MD Unavailable Magno Wood MD Unavailable [phone] Sophie Ocasio Unavailable [phone] Henny Rosales APRN MAIN ENTREE COOK AND CASHIER Unavailable [phone] Unavailable Kaykay Duarte NP Primary Care Provider [phone] Luis A Escobedo MD Unavailable [phone] Reason for Visit * Reason Comments RECHECK Encounter Details Date Type Department Care Team (Latest Contact Info) Description 11/03/2022 9:00 AM CDT Virtual Visit [facility] [address] [place] [address] Sharee Negron, RD [address] [place] [address] [phone] Nutritional counseling (Primary Dx); Gastroesophageal reflux disease with esophagitis, unspecified whether hemorrhage; S/P laparoscopic sleeve gastrectomy; Class 3 severe [...] PHQ-2 Answer Date Recorded PHQ-2 Score 0 11/03/2022 Sex and Gender Information Value Date Recorded [...] - Inhaled Oxygen Concentration - - Weight 135.2 kg (298 lb) 11/03/2022 8:41 AM CDT Height 167.6 cm (5' 6) 11/03/2022 8:41 AM CDT Body Mass Index 48.1 11/03/2022 8:41 AM CDT documented in this encounter Patient Instructions * Patient Instructions* Sharee Negron RD - 11/03/2022 9:00 AM CDT Goals: Specific things discussed today: Continue working on chewing/pace Continue working on protein centered eating Continue staying well hydrated (Small, frequent sips) and fluids from meal time. Recommend adding 2,000 international unit(s)/day of Vitamin D General goals: Relating To Eating: - Eat [...] vitamins/minerals as recommended Supplements after Sleeve Gastrectomy [email or web address] Weight loss prior to surgery: -20 lbs [...] Clear Protein Drinks: BiPro Premier Protein clear Onhvbtn5S [facility] Protein 15 Concentrate Bone broth Beneprotein protein powder mixed with 4-6 oz of fluid [email or web address] After Weight Loss Surgery Why Take Supplements for Life after Weight Loss Surgery [email or web address] Keeping Up Your Diet after Weight Loss Surgery [email or web address] Preventing Low Blood Sugar after Weight Loss Surgery [email or web address] Preventing Dumping Syndrome after Weight Loss Surgery [email or web address] Follow-Ups: 12/04/22, 01/07/23 and February 04 at 9:[address], LD Clinic #: [phone] documented in this encounter Progress Notes * Sharee Negron RD - 11/03/2022 9:00 AM CDT Images from the original note were not included. Video-Visit Details Type of service: Video Visit Video Start Time: 9:01 am Video End Time: 9:22 am Originating Location (pt. Location): Home Distant Location (provider location): Offsite (providers home) Platform used for Video Visit: [employer] Nutrition Assessment Reason For Visit: Billie Connolly is a 51 year old female presents today for re-establish nutrition visit. Pt with history of sleeve gastrectomy 08/09/[address] [facility] [address] Barillas. Patient referred by Geri Loza PA-C on August 15, 2022. Patient with Co-morbidities of obesity including: Type II DM Sleep apnea Joint pain - chronic right hip pain GERD PMH: hypothyroidism, SVT, RLS Anthropometrics: Pre-op Weight: 338 lbs Weight 08/15/22: 305 lbs with BMI 49.23 Estimated body mass index is 48.1 kg/m?? as calculated from the following: Height as of this encounter: 1.676 m (5' 6). Weight as of this encounter: 135.2 kg (298 lb). Current weight: 298 lbs, pt report Goal weight for surgery -20 lbs, 285 lbs Medications for weight loss: Orlistat added 09/02/22 - Denied, doing OTC Ally instead. Not taking currently however due to being dx with Covwilman over the weekend Mounjaro - has type 2 diabetes Current Vitamins/Minerals: B12 monthly injections [place] with iron Labs 08/20/22 A1C 7.2 TSH elevated Labs 10/23/22 Vit D low at 26 TSH elevated PTH WNL Nutrition History: NKFA Not huge on fish/seafood - does eat tuna Pt with hx of sleeve interested in conversion to DS or RNYGB due to weight status and symptoms of GERD. Recommended 6 months of MWM with meds before considering revision. Started on omeprazole 08/15/22 for GERD symptoms including burning in chest/throat. Symptoms improving a little per pt No dysphagia. Did vomit 2x recently - popcorn and 1x with a little beef/baguette/feta appetizer. Does not happen all the time per pt. Was positive for constipation at appt with [facility] but has since resolved - has had changes in thyroid meds. Has been on Mounjaro for 6 months, no weight loss but some impact on hunger/satiety. Eating 3 meals/day and no snacks aside from occ bowl of cereal before bed if hungry. Portions sizes: can eat 6 inch subway or a breakfast sandwich on finnish muffin for reference Wakes up ravenous. Portions are smallest at dinner time typically. Eats protein with every meal - mostly chicken. Does have premier protein shakes as well. Fluids: water, water flavorings, 1 cup coffee/day Alcohol: Rare - occ glass of wine but not able to finish Carbonation: None Working on not drinking while eating. 09/29/22: No major changes to eating habits. Not gaining weight but not losing. Continues with occ vomiting - will feel nausea prior. EGD scheduled 10/15/[address] Escobedo. Avoids fluids with meals overall, might have an occ sip. No concerns with hydration - bought a new water bottle. Okay with no caffeine post op. Meals continue to be protein centric. Utilizing protein shakes as needed to help. Rare snacking PA: limited - Fell on fathers day and hurt hip. Needs future hip replacement - Working on getting an above ground pool. Hoping to do pool exercises BM: regular currently since thyroid med change 11/03/22 Started Ally since last visit. Stopped for time being due to covid. Following Dr. Levy ware diet - eating mostly protein, vegetables and some fruit. Has had some beans as well. Got some protein shakes to help supplement. Will have for breakfast or if really hungry between meals. Down 7 lbs. Eating until full. Doing lots of eggs, adjutant general salads and chicken. Dx with covid over the weekend - taking Paxlovid. Taste/smell gone Hydration: going well, lots of water right now with covid. Also doing some hot tea Starting psych eval process this week. Hoping to have surgery by early January if possible. Previous goals: 1. Aim to not have fluids with meal time - Improving. 2. Continue working on chewing/pace - In progress. 3. Recommend pool exercises as able/tolerated. - Pool is not up right now. 4. 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 Recommend adding 2,000 international unit(s)/day of Vitamin D General goals: Relating To Eating: - Eat [...] vitamins/minerals as recommended Supplements after Sleeve Gastrectomy [email or web address] Weight loss prior to surgery: -20 lbs [...] Boost/Ensure Max (160 calories, 30 gm protein) Medprex Core Power (170 calories, 26 gm protein) Aldi's Elevation Protein Shake (160 calories, 30 gm protein) Equate Protein Shake (160 calories, 30 gm protein) Slim Fast Advanced Nutrition (180 Calories, 20 g protein) Muscle Milk, lactose-free, 17 oz bottle (210 Calories, 30 g protein) Glucerna Protein Smart (150 juan pablo, 30 gm protein) Clear Protein Drinks: BiPro Premier Protein clear Yorinmh3W [facility] Protein 15 Concentrate Bone broth Beneprotein protein powder mixed with 4-6 oz of fluid [id number] After Weight Loss Surgery Why Take Supplements for Life after Weight Loss Surgery [email or web address] Keeping Up Your Diet after Weight Loss Surgery [email or web address] Preventing Low Blood Sugar after Weight Loss Surgery [email or web address] Preventing Dumping Syndrome after Weight Loss Surgery [email or web address] Follow-Ups: 12/04/22, 01/07/23 and February 04 at 9:00 am Time spent with patient: 21 minutes. SIVA Matias, RD, LD documented in this encounter Nursing Notes * Daljit Enamorado - 11/03/2022 9:00 AM CDT Is the patient currently in the state of [place]? YES Visit mode:VIDEO If the visit is dropped, the patient can be reconnected by: VIDEO VISIT: Text to cell phone: [phone] Will anyone else be joining the visit? NO How would you like to obtain your AVS? MyChart Are changes needed to the allergy or medication list? YES: Pt states please remove ibuprofen from allergy list. Pt states now taking 250 mcg total (a 200 and a 50) dialy. Orilistat was denied by insurance so taking OTC Ally 60mg 3x daily. Pt diagnosed with COVID over weekend so taking the Paxlovid. Reason for visit: RECHECK [facility] on 11/03/2022 at 8:42 AM documented in this encounter Plan of Treatment Upcoming Encounters Date Type Department Care Team (Late st Contact Info) Description 06/24/2023 12:30 PM CDT Virtual Visit [facility] [address] [phone] Geri Loza PA-C [address] [place] [address] [phone] 06/24/2023 1:00 PM CDT Virtual Visit [facility] [address] [phone] [place] [address] documented as of this encounter Goals Goal Patient Goal Type Associated Problems Recent Progress Patient-Stated? Author BRIAN PATHWAY SURGERY IS SCHEDULED Care Plan BRIAN PATHWAY SURGERY IS SCHEDULED No Luis A Escobedo MD documented as of this encounter Visit Diagnoses Diagnosis Nutritional counseling- Primary Gastroesophageal reflux disease with esophagitis, unspecified whether hemorrhage S/P laparoscopic sleeve gastrectomy Class 3 severe obesity with serious comorbidity and body mass index (BMI) of 45.0 to 49.9 in adult, unspecified obesity type (H) documented in this encounter Additional Health Concerns Problem Noted Date Diagnosed Date BRIAN PATHWAY SURGERY IS SCHEDULED 10/15/2022 documented as of this encounter Care Teams Mold Yarn Supervisor Relationship Specialty Start [place] [address] [place] [address] PCP - General 10/15/22 Roderick Morelos MD [address] [place], [place] [phone] Cardiovascular Disease 02/03/22 Magno Wood MD [address] [place] [address] [phone] Otolaryngology 02/21/22 Sophie Ocasio AuD [address] [place] [address] [phone] Lye Peel Operator Audiology 02/21/22 Henny Rosales, LAMINATING MACHINE OFFBEARER MAIN [employer]NTREE [employer] CASHIER [address] [place] [phone] Assigned Heart and Vascular Provider 08/09/[address] [place], [place] 512[address] Registered Dietitian Dietitian, Registered 09/02/22 Luis A Escobedo MD [address] [place] [address] Assigned Surgical Provider 11/01/22 11/28/22 documented as of this encounter
--- OUTSIDE RECORDS SUMMARY | 2023-05-09 18:23 | XMS_ITS | Encounter Summary ---
Author Name Unknown Organization [facility] Address [address] [place] [address] 28123 Care Team Providers Care Swine Genetics Researcher Name Role Phone Roderick Morelos MD Unavailable [phone] Magno Wood MD Unavailable [phone] Sophie Ocasio AuD Unavailable [phone] Henny Rosales SULFONATOR OPERATOR MACHINE STRIPPER CUTTER Unavailable Sharee Negron RD Unavailable Kaykay Duarte ORBITREAD OPERATOR Primary Care Provider Christiane Rodríguez MD Unavailable [phone] Chely FernandezC Unavailable [phone] Jing Cadena SULFONATOR OPERATOR HVAC SERVICE TECH Unavailable Radha Lopez [facility] Unavailable Luis A Escobedo MD Unavailable [phone] Geri Loza PA-C Unavailable [phone] Encounter Details Date Type Department Care Team (Late st Contact Info) Description 12/04/2022 Nabil Medical Advice [facility] [address] 4th [place] [address] Kang Griffiths Social History Tobacco [...] Description 06/24/2023 12:30 PM CDT Virtual Visit [facility] [address] [phone] Geri Loza PA-C [address] [place] [address] 775155 06/24/2023 1:00 PM CDT Virtual Visit [facility] [address] [phone] Sharee Negron, RD [address] [place] [address] 669005 documented as of this encounter Goals Goal [...] documented as of this encounter Care Teams Swine Genetics Researcher Relationship Specialty Start Date End Date Kaykay Duarte ORBITREAD OPERATOR [address] [place] [address] PCP - General 10/15/22 Roderick Morelos MD [address] [place] [address] Cardiovascular Disease 02/03/22 Magno Wood MD [address] [place] [address] 396 [place] [address] Otolaryngology 02/21/22 Sophie Ocasio AuD [address] [place] [address] [phone] Hop Grower Audiology 02/21/22 Henny Rosales APRN MACHINE STRIPPER CUTTER [address] [place] [phone] Assigned Heart and Vascular Provider 08/09/[address] [place] [address] 298385 Registered Dietitian Dietitian, Registered 09/02/22 Christiane Rodríguez MD [address] [place] [place] [address] 460175 Otolaryngology 11/12/22 Chely Fernandez PA-C [address] [place] [address] 636995 Assigned Surgical Provider 11/29/22 02/06/23 Jing Cadena APRN HVAC SERVICE TECH [address] [place] [address] 297385 Clinical Nurse Specialist Anesthesiology 01/15/23 [facility] [address] [place] [address] 60095 Pharmacist Pharmacist 01/16/23 Luis A Escobedo MD [address] [place] [address] 66596 Assigned Surgical Provider 02/07/23 04/15/23 Geri Loza PA-C [address] [place] [address] 27442 Assigned Surgical Provider 04/16/23 documented as of this encounter
[2023-05-09 18:24] LABS: Slide Review Reflex No
--- OUTSIDE RECORDS SUMMARY | 2023-05-09 18:24 | XMS_ITS | Encounter Summary ---
Author Name Unknown Organization [facility] Address [address] [place] [address] 95857 Care Team Providers Care Cake Decorator Name Role Phone Roderick Morelos MD Unavailable [phone] Magno Wood MD Unavailable [phone] Sophie Ocasio AuD Unavailable [phone] Henny Rosales CENTRIFUGAL SEPARATOR BREAKER HAND Unavailable [phone] Unavailable Kaykay Duarte FINANCIAL PLANNING ADVISER Primary Care Provider [phone] Christiane Rodríguez MD Unavailable [phone] Luis A Escobedo MD Unavailable [phone] Chely Fernandez PA-C Unavailable [phone] Jing Cadena APRN [place] Unavailable + [phone] Radha Lopez [facility] Unavailable [phone] Luis A Escobedo MD Unavailable [phone] Geri Loza PA-C Unavailable [phone] Encounter Details Date Type Department Care Team (Late st Contact Info) Description 10/23/2022 External Order Results [facility] [address] [place] [address] Outside, Provider Class 3 severe obesity with serious comorbidity and body mass index (BMI) of 45.0 to 49.9 in adult, unspecified obesity type (H) Social History Tobacco Use Types Packs/Day Years Used Date Smoking Tobacco: Never Smokeless Tobacco: Never Alcohol Use Standard Drinks/Week Comments Yes 0 (1 standard drink = 0.6 oz pur e alcohol) socially PHQ-2 Answer Date Recorded PHQ-2 Score 0 09/29/2022 Sex and Gender Information Value Date Recorded [...] Description 06/24/2023 12:30 PM CDT Virtual Visit [facility] [address] [phone] Geri Loza PA-C [address] [place] [address] 973675 06/24/2023 1:00 PM CDT Virtual Visit [facility] [address] [phone] Sharee Negron, RD [address] [place] [address] 462805 documented as of this encounter Goals Goal Patient Goal Type Associated Problems Recent Progress Patient-Stated? Author BRIAN PATHWAY SURGERY IS SCHEDULED Care Plan BRIAN PATHWAY SURGERY IS SCHEDULED No Luis A Escobedo MD documented as of this encounter Procedures Procedure Name Priority Date/Time Associated Diagnosis Comments CBC WITH PLATELETS & DIFFERENTIAL Routine 10/23/2022 11:20 AM CDT HEMOGLOBIN A1C Routine 10/23/2022 11:20 AM CDT Class 3 severe obesity with serious comorbidity and body mass index (BMI) of 45.0 to 49.9 in adult, unspecified obesity type (H) documented in this encounter Results * (ABNORMAL) Hemoglobin A1c (10/23/2022 11:20 AM CDT) Pathologist [facility] Hemoglobin A1C (External) 7.0(H) <=5.6 % NON-INTERFACED (ONBASE SCANS) Blood BLOOD SPECIMEN / Unknown 10/23/2022 11:20 AM CDT Narrative LUIS PFT - 10/24/2022 8:49 AM CDT Verified by Quinn Wetzel on 10/24/2022. Geri Loza PA-C LAB - BLOOD ORDERAB LES [facility] NON-INTERFACED (ONBASE SCANS) * (ABNORMAL) CBC with Platelets & Differential (10/23/2022 11:20 AM CDT) Pathologist [facility] WBC Count (External) 6.7 3.5 - 10.5 x10(9)/L NON-INTERFACE D (ONBASE SCANS) RBC Count (External) 5.19(H) 3.90 - 5.03 x10(12)/L NON-INTERFACE D (ONBASE SCANS) Hemoglobin (External) 14.2 12.0 - 15.5 g/dL NON-INTERFACE D (ONBASE SCANS) Hematocrit (External) 45.3(H) 34.9 - 44.5 % NON-INTERFACE D (ONBASE SCANS) MCV (External) 87.3 80.0 - 100.0 fL NON-INTERFACE D (ONBASE SCANS) MCH (External) 27.4(L) 27.6 - 33.3 pg NON-INTERFACE D (ONBASE SCANS) MCHC (External) 31.3(L) 31.5 - 35.2 g/dL NON-INTERFACE D (ONBASE SCANS) RDW (External) 13.6 11.9 - 15.5 % NON-INTERFACE D (ONBASE SCANS) Platelet Count (External) 226 150 - 450 x10(9)/L NON-INTERFACE D (ONBASE SCANS) Nucleated RBCs (External) 0 <=0 /100 WBC NON-INTERFACE D (ONBASE SCANS) Absolute Neutrophils (External) 4.5 1.7 - 7.0 10(9)/L NON-INTERFACE D (ONBASE SCANS) Absolute Lymphocytes (External) 1.3 1.0 - 4.8 10(9)/L NON-INTERFACE D (ONBASE SCANS) Absolute Monocytes (External) 0.5 0.2 - 0.9 10(9)/L NON-INTERFACE D (ONBASE SCANS) Absolute Eosinophils (External) 0.2 0.0 - 0.5 10(9)/L NON-INTERFACE D (ONBASE SCANS) Absolute Basophils (External) 0.1 0.0 - 0.3 10(9)/L NON-INTERFACE D (ONBASE SCANS) % Immature Granulocytes (External) 0.6(H) 0.0 - 0.5 % NON-INTERFACE D (ONBASE SCANS) Blood BLOOD SPECIMEN / Unknown 10/23/2022 11:20 AM CDT Narrative LUIS PFT - 10/24/2022 6:24 AM CDT Verified by Quinn Wetzel on 10/24/2022. Geri Loza PA-C LAB - BLOOD ORDERAB LES LUIS [place] NON-INTERFACED (ONBASE SCANS) documented in this encounter Visit Diagnoses Diagnosis Class 3 severe obesity with serious comorbidity and body mass index (BMI) of 45.0 to 49.9 in adult, unspecified obesity type (H) documented in this encounter Additional Health Concerns Problem Noted Date Diagnosed Date BRIAN PATHWAY SURGERY IS SCHEDULED 10/15/2022 documented as of this encounter Care Teams Cake Decorator Relationship Specialty Start Date End Date Kaykay Duarte FINANCIAL PLANNING ADVISER [address] [facility] [place] [address] PCP - General 10/15/22 Roderick Morelos MD [address] [place] [address] Cardiovascular Disease 02/03/22 Magno Wood MD [address] [facility] 396 [place] [address] Otolaryngology 02/21/22 Sophie Ocasio AuD [address] [place] [address] [phone] Commercial Construction Estimator Audiology 02/21/22 Henny Rosales, CENTRIFUGAL SEPARATOR BREAKER HAND [address] [place] [address] Assigned Heart and Vascular Provider 08/09/[address] [place] [address] 055375 Registered Dietitian Dietitian, Registered 09/02/22 Christiane Rodríguez MD [address] [place] [address] 396 [place], [place] 554405 Otolaryngology 11/12/22 Luis A Escobedo MD [address] [place] [address] 195 [place], [place] 218285 Assigned Surgical Provider 11/01/22 11/28/22 Chely Fernandez PA-C [address] [place] [address] 545255 Assigned Surgical Provider 11/29/22 02/06/23 Jing Cadena, CENTRIFUGAL SEPARATOR [place] [address] [facility] 450 [place], [place] 621375 Clinical Nurse Specialist Anesthesiology 01/15/23 Radha Lopez, [facility] [address] [place] [address] [phone] Pharmacist Pharmacist 01/16/23 Luis A Escobedo MD [address] [place] [address] 51481 Assigned Surgical Provider 02/07/23 04/15/23 Geri Loza PA-C [address] [place] [address] 00521 Assigned Surgical Provider 04/16/23 documented as of this encounter
--- OUTSIDE RECORDS SUMMARY | 2023-05-09 18:24 | XMS_ITS | Encounter Summary ---
Author Name Unknown Organization [facility] Address [address] [place] [address] 62883 Care Team Providers Care Conveyor System Operator Name Role Phone Roderick Morelos MD Unavailable [phone] Magno Wood MD Unavailable [phone] Sophie Ocasio AuD Unavailable [phone] Henny Rosales SNOWBLOWER MECHANIC LEVERMAN Unavailable [phone] Unavailable Kaykay Duarte NP Primary Care Provider [phone] Encounter Details Date Type Department Care Team (Latest Contact Info) Description 10/23/2022 Travel Social History Tobacco Use Types Packs/Day [...] Description 06/24/2023 12:30 PM CDT Virtual Visit [facility] [address] [phone] Geri Loza PA-C [address] [place] [address] [phone] 06/24/2023 1:00 PM CDT Virtual Visit [facility] [address] [phone] Sharee Negron, RD [address] [place] [address] [phone] documented as of this encounter Goals Goal [...] documented as of this encounter Care Teams Conveyor System Operator Relationship Specialty Start Date End Date Kaykay Duarte, GUILLERMO [address] [place], [place] 0[address] PCP - General 10/15/22 Roderick Morelos MD [address] [place], [place] 468225 Cardiovascular Disease 02/03/22 Magno Wood MD [address] [place] [address] 396 [place], [place] 534435 Otolaryngology 02/21/22 Sophie Ocasio AuD [address] [place] [address] 513215 Grocery Team Member Audiology 02/21/22 Henny Rosales APRN LEVERMAN [address] [place] [phone] Assigned Heart and Vascular Provider 08/09/[address] [place], [place] 397995 Registered Dietitian Dietitian, Registered 09/02/22 documented as of this encounter
--- OUTSIDE RECORDS SUMMARY | 2023-05-09 18:24 | XMS_ITS | Encounter Summary ---
Author Name Unknown Organization [facility] Address [address] [place] [address] 57767 Care Team Providers Care Dance Hall Hostess Name Role Phone Roderick Morelos MD Unavailable [phone] Magno Wood MD Unavailable [phone] Sophie Ocasio AuD Unavailable [phone] Henny Rosales CLOTH NEUTRALIZER WEATHER FORCASTER Unavailable [phone] Unavailable Kaykay Duarte INVISIBLE BRACES ORTHODONTIST Primary Care Provider Christiane Rdoríguez MD Unavailable [phone] Luis A Escobedo MD Unavailable [phone] Chely Fernandez PA-C Unavailable [phone] Jing Cadena APRN CORD TIRE BUILDER Unavailable [phone] Radha Lopez [facility] Unavailable [phone] Luis A Escobedo MD Unavailable [phone] Geri Loza PA-C Unavailable [phone] Encounter Details Date Type Department Care Team (Late st Contact Info) Description 10/16/2022 MyC [facility] Social History Tobacco Use Types Packs/Day Years [...] suspected to have Coronavirus/COVID-19? No / Unsure 10/15/2022 11:56 AM CDT documented as of this encounter Plan of Treatment Upcoming Encounters Date Type Department Care Team (Late st Contact Info) Description 06/24/2023 12:30 PM CDT Virtual Visit [facility] [address] [phone] Geri Loza PA-C [address] [place] [address] 184795 06/24/2023 1:00 PM CDT Virtual Visit [facility] [address] [phone] Sharee Negron, RD [address] [place] [address] 154095 documented as of this encounter Goals Goal [...] documented as of this encounter Care Teams Dance Hall Hostess Relationship Specialty [place] [address] [place] [address] PCP - General 10/15/22 Roderick Morelos MD [address] [place] [address] Cardiovascular Disease 02/03/22 Magno Wood MD [address] [place] [address] 92071 Otolaryngology 02/21/22 Sophie Ocasio AuD [address] [place] [address] 974335 Range Examiner Audiology 02/21/22 Henny Rosales APRN WEATHER FORCASTER [address] [place] [phone] Assigned Heart and Vascular Provider 08/09/[address] [place] [address] 023125 Registered Dietitian Dietitian, Registered 09/02/22 Christiane Rodríguez MD [address] [place] [address] 384275 Otolaryngology 11/12/22 Luis A Escobedo MD [address] [place] [address] 926655 Assigned Surgical Provider 11/01/22 11/28/22 Chely Fernandez PA-C [address] [place] [address] 787645 Assigned Surgical Provider 11/29/22 02/06/23 Jing Cadena APRN CORD TIRE BUILDER 420 [facility] 450 [place], [place] 874795 Clinical Nurse Specialist Anesthesiology 01/15/23 Radha Lopez [facility] 9 [place], [place] 697555 Pharmacist Pharmacist 01/16/23 Luis A Escobedo MD 420 [facility] 195 [place], [place] 397185 Assigned Surgical Provider 02/07/23 04/15/23 Geri Loza PA-C 9 [place], [place] 259185 Assigned Surgical Provider 04/16/23 documented as of this encounter
--- OUTSIDE RECORDS SUMMARY | 2023-05-09 18:24 | XMS_ITS | Encounter Summary ---
Author Name Unknown Organization [facility] Address [address] [place] [address] 18877 Care Team Providers Care History Department Chair Name Role Phone Roderick Morelos MD Unavailable [phone] Magno Wood MD Unavailable [phone] Sophie Ocasio AuD Unavailable [phone] Henny Rosales ASSET CARD CLERK SOW FARM TECHNICIAN Unavailable [phone] Unavailable Kaykay Duarte NP Primary Care Provider [phone] Reason for Referral * Consultation (Routine: Next available opening) - Pending Review Specialty Diagnoses / Procedures Referred By Contsherley t Referred To Contact Otolaryngology Diagnoses [place]rhea, [place] [address] [place] [address] Referral ID Status Reason Start Date Expiration Date V isits Requested Visits Authorized [id number] Pending Review 10/21/2022 10/21/2023 1 1 Question Answer Reason for Referral: Ear Symptoms Scheduling Instructions: [facility] will call you to coordinate your care as prescribed by the provider. If you don? t hear from a medical collections representative within 2 business days, please call [phone]. Comments Referred by: Kaykay C. [place] [address] [place] [address] [facility] will call you to coordinate your care as prescribed by the provider. If you don? t hear from a medical collections representative within 2 business days, please call [phone]. Encounter Details Date Type Department Care Team ([facility] Contact Info) Description 10/21/2022 Transcribe Orders GENERIC EXTERNAL DATA DEPARTMENT Provider, Generic External Data Otorrhea, unspecified laterality (Primary Dx) Social History Tobacco Use Types [...] Upcoming Encounters Date Type Department Care Team ([facility] Contact Info) Description 06/24/2023 12:30 PM CDT Virtual Visit [facility] [address] [phone] Geri Loza PA-C [address] [place] [address] [phone] 06/24/2023 1:00 PM CDT Virtual Visit [facility] [address] [phone] Sharee Negron, ÁNGEL [address] [place] [address] 199195 Scheduled Referrals Name Type Priority Associated Diagnoses Orde r Schedule Adult ENT Molasses Coloring Operator Referral Referral Routine: Next available opening Otorrhea, unspecified laterality Expected: 10/21/2022 (Approximate), Expires: 10/22/2023 documented as of this encounter Goals Goal Patient Goal Type Associated Problems Recent Progress Patient-Stated? Author BRIAN PATHWAY SURGERY IS SCHEDULED Care Plan BRIAN PATHWAY SURGERY IS SCHEDULED No Luis A Escobedo MD documented as of this encounter Visit Diagnoses Diagnosis Otorrhea, unspecified laterality- Primary documented in this encounter Additional Health Concerns Problem Noted Date Diagnosed Date BRIAN PATHWAY SURGERY IS SCHEDULED 10/15/2022 documented as of this encounter Care Teams History Department Chair Relationship Specialty Start Date End Date Kaykay Duarte, ASSEMBLER BONDING [address] [place] [address] PCP - General 10/15/22 Roderick Morelos MD [address] [place] 298035 Cardiovascular Disease 02/03/22 Magno Wood MD [address] [place] [address] 902205 Otolaryngology 02/21/22 Sophie Ocasio AuD [address] [place] [address] 779535 Logistics Officer Audiology 02/21/22 Henny Rosales, ASSET CARD CLERK SOW FARM TECHNICIAN [address] [place] [phone] Assigned Heart and Vascular Provider 08/09/[address] [place] [address] 025875 Registered Dietitian Dietitian, Registered 09/02/22 documented as of this encounter
--- OUTSIDE RECORDS SUMMARY | 2023-05-09 18:24 | XMS_ITS | Encounter Summary ---
Author Name Unknown Organization [facility] Address [address] [place] [address] 84245 Care Team Providers Care Creeler Name Role Phone Roderick Morelos MD Unavailable [phone] Magno Wood MD Unavailable [phone] Sophie Ocasio AuD Unavailable [phone] Henny Rosales RE DYE HAND DIRECTOR OF PROFESSIONAL SERVICES Unavailable [phone] Unavailable Kaykay Duarte PROBATE [place] Primary Care Provider [phone] Christiane Rodríguez MD Unavailable [phone] Luis A Escobedo MD Unavailable [phone] Chely Fernandez PA-C Unavailable [phone] Jing Cadena APRN BUZZSAW OPERATOR HELPER Unavailable + [phone] Radha Lopez [facility] Unavailable [phone] Luis A Escobedo MD Unavailable [phone] Geri Loza PA-C Unavailable [phone] Encounter Details Date Type Department Care Team (Late st Contact Info) Description 10/15/2022 [facility] [address] [place] [phone] Luis A Escobedo MD [address] [facility] 195 [place], [place] 729955 Social History Tobacco Use Types Packs/Day Years [...] Virtual Visit [facility] [address] [phone] Geri Loza PA-C [address] [place] [address] 524955 06/24/2023 1:00 PM CDT Virtual Visit [facility] [address] [phone] Sharee Negron, RD [address] [place] [address] 883175 documented as of this encounter Goals Goal [...] documented as of this encounter Care Teams Creeler Relationship Specialty Start Date End Date Kaykay Duarte, PROBATE [place] [address] [place] [address] PCP - General 10/15/22 Roderick Morelos MD [address] [place] [address] Cardiovascular Disease 02/03/22 Magno Wood MD [address] [place] [address] 502505 Otolaryngology 02/21/22 Sophie Ocasio AuD [address] [place] [address] [phone] Trapeze Artist Audiology 02/21/22 Henny Rosales APRN DIRECTOR OF PROFESSIONAL SERVICES [address] [place] [phone] Assigned Heart and Vascular Provider 08/09/[address] [place] [address] [phone] Registered Dietitian Dietitian, Registered 09/02/22 Christiane Rodríguez MD [address] [place] [address] 896635 Otolaryngology 11/12/22 Luis A Escobedo MD [address] [place] [address] 076915 Assigned Surgical Provider 11/01/22 11/28/22 Chely Fernandez PA-C 909 [place], [place] 191505 Assigned Surgical Provider 11/29/22 02/06/23 Jing Cadena, RE DYE HAND BUZZSAW OPERATOR HELPER 420 [facility] 450 [place] [address] Clinical Nurse Specialist Anesthesiology 01/15/23 Radha Lopez, [facility] [address] [place] [address] 501505 Pharmacist Pharmacist 01/16/23 Luis A Escobedo MD 420 [facility] 195 [place], [place] 597495 Assigned Surgical Provider 02/07/23 04/15/23 Geri Loza PA-C 9 [place], [place] 265855 Assigned Surgical Provider 04/16/23 documented as of this encounter
--- OUTSIDE RECORDS SUMMARY | 2023-05-09 18:24 | XMS_ITS | Encounter Summary ---
Author Name Unknown Organization [facility] Address [address] [place] [address] Care Team Providers Care Tax Advisor Name Role Phone Roderick Morelos MD Unavailable [phone] Magno Wood MD Unavailable [phone] Sophie Ocasio Unavailable [phone] Henny Rosales LICENSED PRACTICAL NURSE EDGE INKER Unavailable [phone] [facility] Primary Care Pr ovider Sharee Negron RD Unavailable Kaykay Duarte CREATIVE SERVICES DIRECTOR Primary Care Provider Christiane Rodríguez MD Unavailable [phone] Luis A Escobedo MD Unavailable [phone] Chely Fernandez PA-C Unavailable [phone] Jing Cadena LICENSED PRACTICAL NURSE HOT PLATE [employer] PRESS OFFBEARER Unavailable Radha Lopez [facility] Unavailable [phone] Luis A Escobedo MD Unavailable [phone] Geri Loza PA-C Unavailable [phone] Encounter Details Date Type Department Care Team (Late st Contact Info) Description 10/03/2022 MyC Medical Advice [facility] [address] [phone] Geri Loza PA-C [address] [place] [address] Social History Tobacco Use Types Packs/Day Years [...] Virtual Visit [facility] [address] [phone] Geri Loza PA-C [address] [place] [address] 06/24/2023 1:00 PM CDT Virtual Visit [facility] [address] [phone] Sharee Negron, RD [address] [place] [address] documented as of this encounter Visit Diagnoses Not on filedocumented in this encounter Care Teams Tax Advisor Relationship Specialty Start [place] [address] [place] [address] PCP - General 08/19/22 10/14/22 Kaykay Duarte NP [id number] [place] [address] [place] [address] PCP - General 10/15/22 Roderick Morelos MD [address] [place] [address] Cardiovascular Disease 02/03/22 Magno Wood MD [address] [place] [address] [address] [place], [place] 0[address]65 Otolaryngology 02/21/22 Sophie Ocasio AuD [address] [place] [address] [phone] [facility]er Audiology 02/21/22 Henny Rosales APRN EDGE INKER [address] [place] [phone] Assigned Heart and Vascular Provider 08/09/[address] [place] [address] [phone] Registered Dietitian Dietitian, Registered 09/02/22 Christiane Rodríguez MD [address] [place] [address] [phone] Otolaryngology 11/12/22 Luis A Escobedo MD [address] [place] [address] 793105 Assigned Surgical Provider 11/01/22 11/28/22 Chely Fernandez PA-C [address] [place] [address] [phone] Assigned Surgical Provider 11/29/22 02/06/23 Jing Cdaena, LICENSED PRACTICAL NURSE HOT PLATE [employer] PRESS OFFBEARER [address] [facility] [address] [place] [address] Clinical Nurse Specialist Anesthesiology 01/15/23 Radha Lopez, [facility] [address] [place] [address] Pharmacist Pharmacist 01/16/23 Luis A Escobedo MD [address] [address] Assigned Surgical Provider 02/07/23 04/15/23 Geri Loza PA-C [address] [place], [place] [phone] Assigned Surgical Provider 04/16/23 documented as of this encounter
--- OUTSIDE RECORDS SUMMARY | 2023-05-09 18:24 | XMS_ITS | Encounter Summary ---
Author Name Unknown Organization [facility] Address [address] [place] [address] Care Team Providers Care Test Engineer Nuclear Equipment Name Role Phone Roderick Morelos MD Unavailable [phone] Magno Wood MD Unavailable Sophie Ocasio Unavailable [phone] Henny Rosales PICK PULLING MACHINE OPERATOR ECHOCARDIOGRAPHY RADIOLOGY TECHNOLOGIST Unavailable [phone] [facility] Primary Care Pr ovider Sharee Negron RD Unavailable Kaykay Duarte CUT OFF SAW SET UP OPERATOR Primary Care Provider [phone] Christiane Rodríguez MD Unavailable [phone] Luis A Escobedo MD Unavailable [phone] Chely Fernandez PA-C Unavailable [phone] Jing Cadena PICK PULLING MACHINE OPERATOR BENCH MOLDER APPRENTICE Unavailable [phone] Radha Lopez [facility] Unavailable [phone] Luis A Escobedo MD Unavailable [phone] Geri Loza PA-C Unavailable [phone] Encounter Details Date Type Department Care Team (Late st Contact Info) Description 09/29/2022 MyC Medical Advice [facility] [address] [phone] Kang Griffiths Social History Tobacco Use Types [...] Description 06/24/2023 12:30 PM CDT Virtual Visit [facility] [address] [phone] Geri Loza PA-C [address] [place] [address] [phone] 06/24/2023 1:00 PM CDT Virtual Visit [facility] [address] [phone] Sharee Negron, RD [address] [place] [address] [phone] documented as of this encounter Visit Diagnoses Not on filedocumented in this encounter Care Teams Test Engineer Nuclear Equipment Relationship Specialty Start [place] End [place], [place] [address] [place], [place] 749297 PCP - General 08/19/22 10/14/22 [place] [address] [place] [address] PCP - General 10/15/22 Roderick Morelos MD [address] [place] [address] Cardiovascular Disease 02/03/22 Magno Wood MD [address] [place] [address] [address] [place] [address] Otolaryngology 02/21/22 Sophie Ocasio AuD [address] [place] [address] [phone] Soft Sugar Supervisor Audiology 02/21/22 Henny Rosales APRN ECHOCARDIOGRAPHY RADIOLOGY TECHNOLOGIST [address] [place] [phone] Assigned Heart and Vascular Provider 08/09/[address] [place] [address] Registered Dietitian Dietitian, Registered 09/02/22 Christiane Rodríguez MD [address] [place] [address] [phone] Otolaryngology 11/12/22 Luis A Escobedo MD [address] [place] [address] Assigned Surgical Provider 11/01/22 11/28/22 Chely Fernandez PA-C [address] [place] [address] Assigned Surgical Provider 11/29/22 02/06/23 Jing Cadena PICK PULLING MACHINE OPERATOR BENCH MOLDER APPRENTICE [address] [phone] Clinical Nurse Specialist Anesthesiology 01/15/23 Radha Lopez, [facility] [address] [place], [place] [phone] Pharmacist Pharmacist 01/16/23 Luis A Escobedo MD [address] [phone] Assigned Surgical Provider 02/07/23 04/15/23 Geri Loza PA-C 9 [place], [place] 218915 Assigned Surgical Provider 04/16/23 documented as of this encounter
--- OUTSIDE RECORDS SUMMARY | 2023-05-09 18:24 | XMS_ITS | Encounter Summary ---
Author Name Unknown Organization [facility] Address [address] [place] [address] Care Team Providers Care Journeyman Pressman Name Role Phone Roderick Morelos MD Unavailable [phone] Magno Wood MD Unavailable [phone] Sophie Ocasio AuD Unavailable [phone] Henny Rosales APRN RECORD CLERK SALESPERSON Unavailable [phone] Unavailable Kaykay Duarte NP Primary Care Provider [phone] Encounter Details Date Type Department Care Team (Late st Contact Info) Description 10/17/2022 Telephone [facility] [address] [place] [phone] Geri Loza PA-C [address] [place] [address] [phone] Social History Tobacco Use Types Packs/Day Years [...] Recorded In the last 10 days, have hoda u been in contact with someone who was confirmed or suspected to have Coronavirus/COVID-19? No / Unsure 10/15/2022 11:56 AM CDT documented as of this encounter Miscellaneous Notes * Telephone Encounter - Henny Arguello RN - 10/17/2022 8:12 AM CDT List of Psych providers sent to patient via [employer]. * Telephone Encounter - Shari Esteban - 10/17/2022 8:02 AM CDT General Call Contacts Type Contact Phone/Fax 10/17/2022 08:02 AM CDT Phone (Incoming) Billie Connolly (Self) [phone] (M) Reason for Call: Psychology appts What are your questions or concerns: pt would like info on where to schedule psychology appts Could we send this information to you in [employer] or would you prefer to receive a phone call?: Patient would prefer a phone call Okay to leave a detailed message?: Yes at Cell number on file: Telephone Information: documented in this encounter Plan of Treatment Upcoming Encounters Date Type Department Care Team (Late st Contact Info) Description 06/24/2023 12:30 PM CDT Virtual Visit [facility] [address] [phone] Geri Loza PA-C [address] [place] [address] [phone] 06/24/2023 1:00 PM CDT Virtual Visit [facility] [address] [phone] Sharee Negron, RD [address] [place] [address] [phone] documented as of this encounter Goals Goal [...] documented as of this encounter Care Teams Journeyman Pressman Relationship Specialty Start Date End Date Kaykay Duarte, QUALITY LAB TECHNICIAN [address] [place] [address] PCP - General 10/15/22 Roderick Morelos MD [address] [place], [place] 122325 Cardiovascular Disease 02/03/22 Magno Wood MD [address] [place] [address] [phone] Otolaryngology 02/21/22 Sophie Ocasio AuD [address] [place] [address] [phone] Merchant Tailor Audiology 02/21/22 Henny Rosales APRN RECORD CLERK SALESPERSON [address] [place] [phone] Assigned Heart and Vascular Provider 08/09/[address] [place] [address] Registered Dietitian Dietitian, Registered 09/02/22 documented as of this encounter
--- OUTSIDE RECORDS SUMMARY | 2023-05-09 18:24 | XMS_ITS | Encounter Summary ---
Author Name Unknown Organization [facility] Address [address] [place] [address] Care Team Providers Care Electrical Hardware Engineer Name Role Phone Roderick Morelos MD Unavailable [phone] Magno Wood MD Unavailable [phone] Sophie Ocasio AuD Unavailable [phone] Henny Rosales PICKLE SORTER PLANER TAILER Unavailable [phone] Unavailable Kaykay Duarte CHAIR FRAME BUILDER Primary Care Provider [phone] Reason for Visit * Auth/Cert (Routine) Specialty Diagnoses / Procedures Referred By Contac t Referred To Contact Gastroenterology Diagnoses S/P laparoscopic sleeve gastrectomy Gastroesophageal reflux disease with esophagitis, unspecified whether hemorrhage S/P laparoscopic sleeve gastrectomy [Z98.84] Gastroesophageal reflux disease with esophagitis, unspecified whether hemorrhage [K21.00] Procedures PA UGI ENDOSCOPY DIAG W OR W/O BRUSH/WASH Esophagoscopy, gastroscopy, duodenoscopy (EGD), combined [facility] [address] [place] [address] Referral ID Status Reason Start Date Expiration Date Visits Re quested Visits Authorized 1 1 Encounter Details Date Type Department Care Team (Latest Contact Info) Description 10/15/2022 11:56 AM CDT - 10/15/2022 2:37 PM CDT Hospital Encounter [facility] [place] [address] [place] [id number] Luis A Escobedo MD [address] [facility] [place] [address] [place] [address] Discharge Disposition: Home or Self Care Social [...] Sign Reading Time Taken Comments Blood Pressure 101/67 10/15/2022 2:00 PM CDT Pulse 80 10/15/2022 2:00 PM CDT Temperature - - Respiratory Rate 14 10/15/2022 1:35 PM CDT Oxygen Saturation 92% 10/15/2022 2:00 PM CDT Inhaled Oxygen Concentration - - Weight - - Height - - Body Mass Index - - documented in this encounter Medications at Time of Discharge Medication Sig Dispensed Refills Start Date End Date albuterol (PROAIR HFA/PROVENTIL HFA/VENTOLIN HFA) 108 (90 [...] dyspnea or wheezing 90 mL 1 06/19/2021 gabapentin (NEURONTIN) 600 MG tablet Take 600 mg by mouth At Bedtime 0 levonorgestrel (MIRENA) 52 MG (20 mcg/day) IUD 1 each by Intrauterine route 0 levothyroxine (SYNTHROID/LEVOTHROID ) 200 MCG tablet Take 225 mcg by mouth at bedtime 90 tablet 0 rOPINIRole (REQUIP) 2 MG tablet Take 2 mg by mouth 2 times daily Take in afternoon and at bedtime 0 blood glucose (ACCU-CHEK GUIDE) test strip USE 1 STRIP TO TEST THREE TIMES A DAY. 0 04/11/2022 albuterol (PROVENTIL) (2.5 MG/3ML) 0.083% neb solution Take 1 vial (2.5 mg) by nebulization every 6 hours as needed for shortness of breath / dyspnea or wheezing 90 mL 0 10/29/2021 01/26/2023 celecoxib (CELEBREX) 200 MG capsule Take 200 mg by mouth 2 times daily as needed 0 03/04/2022 03/19/2023 cyanocobalamin (CYANOCOBALAMIN) 1000 MCG/ML injectionIndications: S/P laparoscopic sleeve gastrectomy Inject 1 mL (1,000 mcg) Subcutaneous every 30 days 1 mL 11 08/15/2022 11/05/2022 estradiol (ESTRACE) 0.1 MG/GM vaginal cream 0 06/20/2022 01/27/2023 fluticasone (FLOVENT HFA) 110 MCG/ACT inhaler Inhale 2 puffs into the lungs 2 times daily as needed Takes only when sick 0 02/18/2023 omeprazole (PRILOSEC) [address] capsule Take 1 capsule (20 mg) by mouth daily 30 capsule 3 08/15/2022 11/05/2022 orlistat (XENICAL) 120 MG capsuleIndications:Cl ass 3 severe obesity with serious comorbidity and body mass index (BMI) of 45.0 to 49.9 in adult, unspecified obesity type (H) Take 1 capsule (120 mg) by mouth 3 times daily (with meals) 90 capsule 5 09/02/2022 11/05/2022 predniSONE (DELTASONE) 20 MG tablet Take two tablets (= 40mg) each day for 5 (five) days 10 tablet 0 10/29/2021 01/26/2023 tirzepatide (MOUNJARO) 15 MG/0.5ML pen Inject 15 mg Subcutaneous every 7 days Thursday 0 04/23/2023 Syringe/Needle, Disp, (BD ECLIPSE SYRINGE/NEEDLE) 25G X 5/8 3 ML MISCIndications:S/P laparoscopic sleeve gastrectomy 1 Syringe every 30 days 1 each 08/15/2022 01/27/2023 documented as of this encounter H&P Notes * Luis A Escobedo MD - 10/15/2022 1:10 PM CDT [facility] Anesthesia Pre-op History and Physical Billie Connolly Age: [age] year old Date of : 1970 Location [facility], [place]; 3rd floor endoscopy center Primary care provider: Kaykay Duarte Chief Complaint and/or Reason for Procedure: Has history of gastric sleeve; recurrent weight and class III obesiity Active problem list: Patient Active Problem List Diagnosis Date Noted Hyperglycemia 10/30/2021 Priority: Medium Acute bronchitis, unspecified organism 06/19/2021 Priority: Medium Asthma with acute exacerbation, unspecified asthma severity, unspecified whether persistent 06/19/2021 Priority: Medium S/P laparoscopic sleeve gastrectomy 08/09/2020 Priority: Medium Laparoscopic vertical sleeve gastrectomy, intraoperative EGD No elective surgery for 30 days starting 08/09/20 Tachycardia 03/23/2020 Priority: Medium Bloody stool 03/22/2020 Priority: Medium Hx of hemorrhoids 03/22/2020 Priority: Medium Pneumonia due to COVID-19 virus 03/20/2020 Priority: Medium Viral pneumonitis 03/19/2020 Priority: Medium Hypoxia 03/19/2020 Priority: Medium 2019 novel coronavirus disease (COVID-19) 03/19/2020 Priority: Medium Type 2 diabetes mellitus without complication, without long-term current use of insulin (H) 12/15/2019 Priority: Medium Severe obstructive sleep apnea 07/06/2019 Priority: Medium Setting: Supplied by: PSG done: 07-04-18 AHI 35 RDI 36 Lowest O2 Sat: 87% [place] Hypothyroidism, unspecified type 06/28/2019 Priority: Medium Cervical high risk HPV (human papillomavirus) test positive 08/05/2017 Priority: Medium Overview: CCSM Review: History: 2018: NILM HPV+ (18), colp neg Plan, per ASCCP guidelines: co-test in 12 months (08/2018) Class 3 severe obesity with serious comorbidity and body mass index (BMI) of 45.0 to 49.9 in adult,unspecified obesity type (H) 04/15/2017 Priority: Medium Chronic low back pain 08/01/2016 Priority: Medium OAB (overactive bladder) 08/01/2016 Priority: Medium Mild intermittent asthma without complication 06/12/2016 Priority: Medium Moderate persistent asthma with acute exacerbation 06/12/2016 Priority: Medium Wheezing 10/21/2014 Priority: Medium Asthma exacerbation 10/21/2014 Priority: Medium Panic attacks 10/16/2014 Priority: Medium Restless legs syndrome 05/29/2014 Priority: Medium Gastroesophageal reflux disease with esophagitis 08/14/2009 Priority: Medium Irregular heart beat 08/14/2009 Priority: Medium Mixed hyperlipidemia 08/14/2009 Priority: Medium Medications (include herbals and vitamins): No current facility-administered medications for this encounter. Allergies: Allergies Allergen Reactions Ibuprofen Other (See Comments) Gastric sleeve Physical Exam: Patient Vitals for the past 8 hrs: BP Pulse Resp SpO2 10/15/22 1235 121/77 76 16 98 % No intake/output data recorded. Breathing unlabored NAD Lab / Radiology Results: Guidelines for CXR: new or unstable cardio-pulmonary disease Anesthetic risk and/or ASA classification: Luis A Escobedo MD Plan Upper Endoscopy to evaluate for size of sleeve; stricture; causes of heartburn; hiatal hernia. Luis A Escobedo MD Surgery [phone] (hospital ram press operator) [phone] (clinic nurses) documented in this encounter Nursing Notes * Adelia Sepulveda RN - 10/15/2022 1:33 PM CDT Patient had EGD with biopsies Patient tolerated procedure under conscious sedation and up to 8 liters oxy mask. Patient titrated to room air upon transfer to recovery. documented in this encounter Plan of Treatment Upcoming Encounters Date Type Department Care Team (Late st Contact Info) Description 06/24/2023 12:30 PM CDT Virtual Visit [facility] [place] [id number] [address] Geri Loza PA-C [address] [place] [id number] 06/24/2023 1:00 PM CDT Virtual Visit [facility] [address] [address] Migdalia Sharee Jeremy, RD [address] [place], [place] [address] documented as of this encounter Procedures Procedure Name Priority Date/Time Associated Diagnosis Comments SURGICAL PATHOLOGY EXAM Routine 10/15/2022 1:27 PM CDT ESOPHAGOGASTRODUOD ENOSCOPY, WITH BIOPSY 10/15/2022 1:11 PM CDT S/P laparoscopic sleeve gastrectomy Gastroesophageal reflux disease with esophagitis, unspecified whether hemorrhage GLUCOSE BY METER Routine 10/15/2022 12:4 0 PM CDT UPPER GI ENDOSCOPY Routine 10/15/2022 12 :37 PM CDT documented in this encounter Results * Surgical Pathology Exam (10/15/2022 1:27 PM CDT) Case Report Surgical Pathology Report ? Case: [id number] ? Authorizing Provider: ??Luis A Escobedo MD ?? Collected: ? 10/15/2022 01:27 PM ? Ordering Location: ? [facility] ?Received: ?10/15/2022 01:58 PM ? Endoscopy ? Pathologist: ? Crystal Jones MD ? Specimen: ?Other, distal esophagus biopsies ? 10/16/2022 4:30 PM CDT [facility] Final Diagnosis DISTAL ESOPHAGUS, BIOPSY: Squamous esophageal mucosa with no intraepithelial eosinophils or other abnormality 10/16/2022 4:30 PM CDT [facility] Clinical Information Heartburn s/p laparoscopic sleeve gastrectomy 10/16/2022 4:30 PM T [facility] Gross Description A(1). Other, distal esophagus biopsies: The specimen is received in formalin with proper patient identification, labeled distal esophagus biopsies. The specimen consists of 2 irregular morales-white soft tissues up to 0.3 cm. The specimen is wrapped, and submitted entirely in block A1. 10/16/2022 4:30 PM T [facility] Microscopic Description Microscopic examination has been performed. I have personally reviewed all specimens and or slides, including the listed special stains, and used them with my medical judgement to determine the final diagnosis. 10/16/2022 4:30 PM T [facility] Performing Labs The technical component of this testing was completed at [facility] 10/16/2022 4:30 PM CDT [facility] Case Images 10/16/2022 4:30 PM CDT [facility] Biopsy TOPOGRAPHY UNKNOWN / Unknown 10/15/2022 1:27 PM CDT 10/15/2022 1:58 PM CDT Comment:Evaluate for esophag itis Luis A LAWTON [facility] [address] [facility], [address] [place] [address], [place] [phone] [facility] [place] [facility] [address] [facility] [place] [place], [address] [place] [address], [place] [phone] * (ABNORMAL) Glucose by meter (10/15/2022 12:40 PM CDT) GLUCOSE BY METER POCT 118(H) 70 - 99 mg/dL 10/15/2022 12:47 PM CDT [facility] POC Blood, Capillary BLOOD SPECIMEN / Unknown 10/15/2022 12:40 PM CDT 10/15/2022 12:47 PM CDT Luis A LAWTON POCT LABORATORY POC [facility] [address] [facility] [place] [place], [address] [place] [address], [facility] [phone] * UPPER GI ENDOSCOPY (10/15/2022 12:37 PM CDT) Upper GI Endoscopy [facility] [address] [facility] [place] [address] [phone] ? Endoscopy Department Patient Name: Billie Connolly ?Procedure Date: 10/15/2022 12:37 PM ? Date of : 1970 ?Admit Type: Outpatient Age: 52 ? Room: #1 Gender: Female ?Note Status: Finalized Attending MD: LUIS A ESCOBEDO MD, ?? Total Sedation Time: Procedure: ? Upper GI endoscopy Indications: ? Heartburn Providers: ? LUIS A ESCOBEDO MD, Ivory Pereira RN, Fabiana ? SKIP [place] Patient Profile: ? Billie has long history of yo yo diets; had sleeve ? gastrectomy 2 yrs ago at [facility]. Had weight ? of 340s range on day of surgery; no preoperative ? weight loss requirement. Had weight loss to current ? weight of low 300s lbs; has been frustrated with ? weight loss and lack of response even to mounjaro; ? hasn't tried orlistat which I have recommended as ? training wheels for gastric bypass or duodenal switch ? conversion; unclear if diet guidelines have been ? followed as this is my first time meeting. I have sent ? these by bette. Referring MD: ?GERI KathyLoretta LOZA Medicines: ? Midazolam 6 mg IV, Fentanyl 200 micrograms IV Complications: ? No immediate complications. Procedure: ? Pre-Anesthesia Assessment: ? - Prior to the procedure, a History and Physical was ? performed, and patient medications and allergies were ? reviewed. The patient is competent. The risks and ? benefits of the procedure and the sedation options and ? risks were discussed with the patient. All questions ? were answered and informed consent was obtained. ? Patient identification and proposed procedure were ? verified by the physician and the nurse in the ? procedure room. Mental Status Examination: alert and ? oriented. Airway Examination: normal oropharyngeal ? airway and neck mobility. Respiratory Examination: ? clear to auscultation. CV Examination: normal. ASA ? Grade Assessment: II - A patient with mild systemic ? disease. After reviewing the risks and benefits, the ? patient was deemed in satisfactory condition to ? undergo the procedure. The anesthesia plan was to use ? moderate sedation / analgesia (conscious sedation). ? Immediately prior to administration of medications, ? the patient was re-assessed for adequacy to receive ? sedatives. The heart rate, respiratory rate, oxygen ? saturations, blood pressure, adequacy of pulmonary ? ventilation, and response to care were monitored ? throughout the procedure. The physical status of the ? patient was re-assessed after the procedure. ? After obtaining informed consent, the endoscope was ? passed under direct vision. Throughout the procedure, ? the patient's blood pressure, pulse, and oxygen ? saturations were monitored continuously. The Endoscope ? was introduced through the mouth, and advanced to the ? second part of duodenum. The upper GI endoscopy was ? accomplished without difficulty. The patient tolerated ? the procedure well. ? Findings: ? LA Grade A (one or more mucosal breaks less than 5 mm, not extending ? between tops of 2 mucosal folds) esophagitis with no bleeding was found ? in the distal esophagus. Biopsies were taken with a cold forceps for ? histology. ? A 1 cm hiatal hernia was present. ? Anatomy consistent with prior vertical sleeve gastrectomy ? There is a sleeve gastrectomy with NO narrowing in any part of the ? sleeve. In fact, I was able to retroflex adult scope and pull this ? through the entire body of the sleeve, suggesting a relatively wide ? caliber sleeve. ? The examined duodenum was normal. ? Impression: ?- LA Grade A reflux esophagitis with no bleeding. ? Biopsied. ? - 1 cm hiatal hernia. Sleeve without stricture; ? somewhat wide caliber. ? - Normal examined duodenum. Recommendation: ?- Await pathology results. ? - Follow diet guidelines that I sent to your mychart. ? - No other diets at this point. ? - Stop eating when not hungry; practice throwing away ? food. ? - Could consider other operation if able to prior ? authorize and able to lose weight prior to surgery. ? LUIS A ESCOBEDO MD 10/15/2022 1:36:13 PM I was physically present for the entire viewing portion of the exam. Signature of teaching physician B4c/Myrna ESCOBEDO MD Number of Addenda: 0 Note Initiated On: 10/15/2022 12:37 PM Scope In: Scope Out: RADIOLOGY RESULTS 10/15/2022 12:3 7 PM CDT Mary Jo Dago [facility] PROCEDURES RADIOLOGY RESULTS documented in this encounter Visit Diagnoses Not on filedocumented in this encounter Administered Medications Inactive Administered Medications - up to 3 most recent administrations Medication Order MAR Action Action Date Dose Rate Site benzocaine 20% (HURRICAINE/TOPEX) 20 % spray Mouth/Throat, PRN, Starting on Thu10/15/22 at 1322, Intra-procedure $Given 10/15/2022 1:22 PM CDT 1 spray fentaNYL (PF) (SUBLIMAZE) injection Intravenous, PRN, Administer over 3-5 Minutes, Starting on Thu10/15/22 at 1315, Intra-procedure $Given 10/15/2022 1:20 PM CDT 50 mcg $Given 10/15/2022 1:17 PM CDT 50 mcg $Given 10/15/2022 1:15 PM CDT 100 mcg midazolam (VERSED) injection Intravenous, Administer over 2 Minutes, PRN, Starting on Thu10/15/22 at 1315, Intra-procedure $Given 10/15/2022 1:25 PM CDT 1 mg $Given 10/15/2022 1:23 PM CDT 1 mg $Given 10/15/2022 1:20 PM CDT 1 mg documented in this encounter Active and Recently Administered Medications Times are shown in CDT. PRN Medication Order 10/13/2022 10/14/2022 10/15/2022 benzocaine 20% (HURRICAINE/TOPEX) 20 % spray Mouth/Throat, PRN, Starting on Thu10/15/22 at 1322, Intra-procedure 1322 ($Given - Provi andrade: Luis A Escobedo MD) fentaNYL (PF) (SUBLIMAZE) injection Intravenous, PRN, Administer over 3-5 Minutes, Starting on Thu10/15/22 at 1315, Intra-procedure 1315 ($Given - Provi andrade: Ivory Pereira RN)1317 ($Given - Provider: Ivory Pereira RN)1320 ($Given - Provider: Ivory Pereira RN) midazolam (VERSED) injection Intravenous, Administer over 2 Minutes, PRN, Starting on Thu10/15/22 at 1315, Intra-procedure 1315 ($Given - Provi andrade: Ivory Pereira RN)1317 ($Given - Provider: Ivory Pereira RN)1320 ($Given - Provider: Ivory Pereira RN)1323 ($Given - Provider: Ivory Pereira RN)1325 ($Given - Provider: Ivory Pereira RN) documented in this encounter Care Teams Electrical Hardware Engineer Relationship Specialty Start [place] [address] [place] [address] PCP - General 10/15/22 Roderick Morelos MD [address] [place] [id number] Cardiovascular Disease 02/03/22 Magno Wood MD [address] [facility] [place] [address] [place] [address] Otolaryngology 02/21/22 Sophie Ocasio AuD [address] [place] [address] [address] [place] 02/21/22 Henny Rosales APRN PLANER TAILER [address] [place] [id number] Assigned Heart and Vascular Provider 08/09/[address] [place] [address] Registered Dietitian Dietitian, Registered 09/02/22 documented as of this encounter
--- OUTSIDE RECORDS SUMMARY | 2023-05-09 18:24 | XMS_ITS | Encounter Summary ---
Author Name Unknown Organization [facility] Address [address] [place] [address] Care Team Providers Care Lock Maintenance Supervisor Name Role Phone Roderick Morelos MD Unavailable [phone] Magno Wood MD Unavailable [phone] Sophie Ocasio AuD Unavailable [phone] Henny Rosales GAME ATTENDANT PICTURE FRAMER Unavailable [phone] Unavailable Kaykay Duarte COUTURE ALTERATIONS DRESSMAKER Primary Care Provider [phone] Reason for Visit * Auth/Cert (Routine) Specialty Diagnoses / Procedures Referred By Contac t Referred To Contact Gastroenterology Diagnoses S/P laparoscopic sleeve gastrectomy Gastroesophageal reflux disease with esophagitis, unspecified whether hemorrhage S/P laparoscopic sleeve gastrectomy [Z98.84] Gastroesophageal reflux disease with esophagitis, unspecified whether hemorrhage [K21.00] Procedures HI UGI ENDOSCOPY DIAG W OR W/O BRUSH/WASH Esophagoscopy, gastroscopy, duodenoscopy (EGD), combined [facility] End[facility] [address] [place] [address] Referral ID Status Reason Start Date Expiration Date Visits Re quested Visits Authorized 1 1 Encounter Details Date Type Department Care Team ([facility] st Contact Info) Description 10/15/2022 1:00 PM CDT - 10/15/2022 1:30 PM CDT [facility] Endoscopy [address] [place] [phone] Luis A Escobedo MD [address] [facility] [address] [place], [place] [phone] ESOPHAGOGASTRODUODENOS COPY, WITH BIOPSY Surgery Details Date/Time Status Location OR Service Patient Class Case Class Case Type Trauma Case? 10/15/22 1:00 PM Posted UU GI UU GI 01 General Outpatient Panel 1 Procedure LRB Anes Op Region Wound Class Comments ESOPHAGOGASTRODUODENOS COPY, WITH BIOPSY N/A Moderate Sedation Esophagus II-Clean Contamina lincoln Surgeon Surgeon Role Service Panel Luis A Escobedo MD Primary General 1 documented in this encounter Social History Tobacco [...] Sign Reading Time Taken Comments Blood Pressure 155/95 10/15/2022 1:25 PM CDT Pulse 73 10/15/2022 1:25 PM CDT Temperature - - Respiratory Rate 23 10/15/2022 1:29 PM CDT Oxygen Saturation 98% 10/15/2022 1:29 PM CDT Inhaled Oxygen Concentration - - [...] Escobedo MD - 10/15/2022 1:10 PM CDT [facility] Anesthesia Pre-op History and Physical Billie Connolly Age: [age] year old Date of : 1970 Location [facility]; 3rd floor endoscopy center Primary care provider: [...] hiatal hernia. Luis A Escobedo MD Surgery [phone] (hospital malter operator) [phone] (clinic nurses) documented in this encounter Nursing [...] Description 06/24/2023 12:30 PM CDT Virtual Visit [facility] [address] [phone] Geri Loza PA-C [address] [place] [address] 06/24/2023 1:00 PM CDT Virtual Visit [facility] [address] [address] Sharee Negron, RD [address] [place] [address] [phone] documented as of this encounter Procedures Procedure [...] Case Report Surgical Pathology Report ? Case: [id number] ? Authorizing Provider: ??Luis A Escobedo MD ?? Collected: ? 10/15/2022 01:27 PM ? Ordering Location: ? [facility] ?Received: ?10/15/2022 01:58 PM ? Endoscopy ? Pathologist: ? Crystal Jones MD ? Specimen: ?Other, distal esophagus biopsies ? 10/16/2022 4:30 PM CDT [facility] Final Diagnosis DISTAL ESOPHAGUS, BIOPSY: Squamous esophageal mucosa with no intraepithelial eosinophils or other abnormality 10/16/2022 4:30 PM CDT [facility] Clinical Information Heartburn s/p laparoscopic sleeve gastrectomy 10/16/2022 4:30 PM CDT [facility] Gross Description A(1). Other, distal esophagus biopsies: The specimen is received in formalin with proper patient identification, labeled distal esophagus biopsies. The specimen consists of 2 irregular morales-white soft tissues up to 0.3 cm. The specimen is wrapped, and submitted entirely in block A1. 10/16/2022 4:30 PM CDT [facility] Microscopic Description Microscopic examination has been performed. I have personally reviewed all specimens and or slides, including the listed special stains, and used them with my medical judgement to determine the final diagnosis. 10/16/2022 4:30 PM CDT [facility] Performing Labs The technical component of this testing was completed at [facility] 10/16/2022 4:30 PM CDT [facility] Case Images 10/16/2022 4:30 PM CDT [facility] Biopsy TOPOGRAPHY UNKNOWN / Unknown 10/15/2022 1:27 PM CDT 10/15/2022 1:58 PM CDT Comment:Evaluate for esophag itis Luis A LAWTON AP Performing Organization Address City/[facility]/ZIP Co de Phone Number [facility] Specialty Lab [address] [facility], [address] [place] [address], [facility] [phone] U LABORATORY [facility] Core Lab [address] [facility], [address] [place] [address], [facility] [phone] * (ABNORMAL) Glucose by meter (10/15/2022 12:40 PM CDT) GLUCOSE BY METER POCT 118(H) 70 - 99 mg/dL 10/15/2022 12:47 PM CDT [facility] POC Blood, Capillary BLOOD SPECIMEN / Unknown 10/15/2022 12:40 PM CDT 10/15/2022 12:47 PM CDT Luis A LAWTON POCT LABORATORY POC [facility] Core Lab [address] [facility], [address] [place] [address], [facility] [phone] * UPPER GI ENDOSCOPY (10/15/2022 12:37 PM CDT) Upper GI Endoscopy [facility] [address] [place] [address] [phone] ? Endoscopy Department Patient Name: Billie Connolly [...] sleeve ? gastrectomy 2 yrs ago at [facility]. Had weight ? of 340s range on [...] ? these by bette. Referring MD: ?GERI LOZA Medicines: ? Midazolam 6 mg IV, [...] of the exam. Signature of teaching physician [id number] ESCOBEDO MD Number of Addenda: 0 Note Initiated On: 10/15/2022 12:37 PM Scope In: Scope Out: RADIOLOGY RESULTS 10/15/2022 12:3 7 PM CDT Mary Jo Dago VILLAFUERTE PROCEDURES RADIOLOGY RESULTS documented in this encounter Visit Diagnoses Diagnosis S/P laparoscopic sleeve gastrectomy Gastroesophageal reflux disease with esophagitis, unspecified whether hemorrhage documented in this encounter Administered Medications Inactive [...] Ivory Pereira RN)1317 ($Given - Provider: Ivory Pereira, RN)1320 ($Given - Provider: Ivory Pereira, RN)1323 ($Given - Provider: Ivory Pereira RN)1325 ($Given - Provider: Ivory Pereira RN) documented in this encounter Care Teams Lock Maintenance Supervisor Relationship Specialty [place] [address] [facility] [place] [address] PCP - General 10/15/22 Roderick Morelos MD [address] [place] [address] Cardiovascular Disease 02/03/22 Magno Wood MD [address] [place] [address] Otolaryngology 02/21/22 Sophie Ocasio AuD [address] [place] [address] [phone] Service Advocate Contact Audiology 02/21/22 Henny Rosales APRN PICTURE FRAMER [address] [place] [phone] Assigned Heart and Vascular Provider 08/09/[address] [place] [address] [phone] Registered Dietitian Dietitian, Registered 09/02/22 documented as of this encounter
--- OUTSIDE RECORDS SUMMARY | 2023-05-09 18:24 | XMS_ITS | Encounter Summary ---
Author Name Unknown Organization [facility] Address [address] [place] [address] Care Team Providers Care Switchboard Operator Supervisor Name Role Phone Roderick Morelos MD Unavailable [phone] Magno Wood MD Unavailable Sophie Ocasio AuD Unavailable [phone] Henny Rosales MULTIPLE EFFECT EVAPORATOR OPERATOR [facility] Unavailable [phone] Unavailable Kaykay Duarte IT NETWORK ARCHITECT Primary Care Provider [phone] Christiane Rodríguez MD Unavailable [phone] Luis A Escobedo MD Unavailable [phone] Chely Fernandez PA-C Unavailable [phone] Jing Cadena APRN HAND BOX COVERER Unavailable [phone] Radha Lopez [facility] Unavailable [phone] Luis A Escobedo MD Unavailable [phone] Geri Loza PA-C Unavailable [phone] Encounter Details Date Type Department Care Team (Late st Contact Info) Description 10/23/2022 External Order Results [facility] [address] [place] [address] Outside, Provider Class 3 severe obesity with [...] Virtual Visit [facility] [address] [phone] Geri Loza PA-C [address] [place] [address] [phone] 06/24/2023 1:00 PM CDT Virtual Visit [facility] [address] [phone] Sharee Negron, RD [address] [place] [address] 538365 documented as of this encounter Goals Goal Patient Goal Type Associated Problems Recent Progress Patient-Stated? Author BRIAN PATHWAY SURGERY IS SCHEDULED Care Plan BRIAN PATHWAY SURGERY IS SCHEDULED No Luis A Escobedo MD documented as of this encounter Procedures Procedure Name Priority Date/Time Associated Diagnosis Comments VITAMIN A Routine 10/23/2022 11:20 AM CDT Class 3 severe obesity with serious comorbidity and body mass index (BMI) of 45.0 to 49.9 in adult, unspecified obesity type (H) PARATHYROID HORMONE INTACT Routine 10/23/2022 11:20 AM CDT Class 3 severe obesity with serious comorbidity and body mass index (BMI) of 45.0 to 49.9 in adult, unspecified obesity type (H) LIPID PROFILE Routine 10/23/2022 11:20 AM CDT HEPATIC FUNCTION PANEL Routine 10/23/2022 11:20 AM CDT FERRITIN Routine 10/23/2022 11:20 AM CDT Class 3 severe obesity with serious comorbidity and body mass index (BMI) of 45.0 to 49.9 in adult, unspecified obesity type (H) VITAMIN B12 Routine 10/23/2022 11:20 AM CDT Class 3 severe obesity with serious comorbidity and body mass index (BMI) of 45.0 to 49.9 in adult, unspecified obesity type (H) BASIC METABOLIC PANEL Routine 10/23/2022 11:20 AM CDT documented in this encounter Results * Vitamin A (10/23/2022 11:20 AM CDT) Pathologist [facility] Vitamin A (External) 0.82 0.30 - 1.20 mg/L NON-INTERFACE D (ONBASE SCANS) Scan Lab Results (External) See Scanned Report NON-INTERFACE D (ONBASE SCANS) Comment:Retinyl Palminate Vitamin A Interp (External) Normal NON-INTERFACE D (ONBASE SCANS) Blood 10/23/2022 11:2 0 AM CDT Narrative MELIDAEZE PFT - 10/27/2022 1:35 PM CDT Verified by Justyna Pat on 10/27/2022. Geri Loza PA-C LAB - BLOOD ORDERAB LES BREGLENN PFT NON-INTERFACED (ONBASE SCANS) * Vitamin B12 (10/23/2022 11:20 AM CDT) Vitamin B12 (External) 294 213 - 816 pg/mL NON-INTERFACED (ONBASE SCANS) Blood BLOOD SPECIMEN / Unknown 10/23/2022 11:20 AM CDT Narrative BREEZE PFT - 10/24/2022 1:41 PM CDT Verified by Gisel Izaguirre on 10/24/2022. Geri Loza PA-C LAB - BLOOD ORDERAB LES BREEZE PFT NON-INTERFACED (ONBASE SCANS) * Ferritin (10/23/2022 11:20 AM CDT) Ferritin (External) 88 9 - 204 ng/mL NON-INTERFACED (ONBASE SCANS) Blood BLOOD SPECIMEN / Unknown 10/23/2022 11:20 AM CDT Narrative BREEZE PFT - 10/24/2022 1:41 PM CDT Verified by Gisel Izaguirre on 10/24/2022. Geri Loza PA-C LAB - BLOOD ORDERAB LES BREEZE PFT NON-INTERFACED (ONBASE SCANS) * Parathyroid Hormone Intact (10/23/2022 11:20 AM CDT) Parathyroid Hormone Intact (External) 65 10 - 100 pg/mL NON-INTERFACED (ONBASE SCANS) Blood BLOOD SPECIMEN / Unknown 10/23/2022 11:20 AM CDT Narrative BREEZE PFT - 10/24/2022 1:35 PM CDT Verified by Gisel Izaguirre on 10/24/2022. Geri Loza PA-C LAB - BLOOD ORDERAB LES BREEZE PFT NON-INTERFACED (ONBASE SCANS) * (ABNORMAL) Lipid Profile (10/23/2022 11:20 AM CDT) Cholesterol (External) 322(H) 0 - 199 mg/dL NON-INTERFACE D (ONBASE SCANS) Triglycerides (External) 205(H) <=149 mg/dL NON-INTERFACE D (ONBASE SCANS) HDL Cholesterol (External) 46 >=40 mg/dL NON-INTERFACE D (ONBASE SCANS) LDL-Cholesterol (External) 235(H) <130 mg/dL NON-INTERFACE D (ONBASE SCANS) Blood BLOOD SPECIMEN / Unknown 10/23/2022 11:20 AM CDT Narrative BREEZE PFT - 10/24/2022 11:08 AM CDT Verified by Quinn Wetzel on 10/24/2022. Mikayla Sweeney MD LAB - BLOOD ORDERABL ES Performing Organization Address [facility] de Phone Number BREEZE PFT NON-INTERFACED (ONBASE SCANS) * Hepatic function panel (10/23/2022 11:20 AM CDT) Alk Phosphatase (External) 73 40 - 150 U/L NON-INTERFACED (ONBASE SCANS) AST (External) 16 10 - 40 U/L NON-INTERFACED (ONBASE SCANS) ALT (External) 21 <=55 U/L NON-I NTERFACED (ONBASE SCANS) Bilirubin Total (External) 0.4 0.2 - 1.2 mg/dL NON-INTERFACED (ONBASE SCANS) Protein Total (External) 7.0 6.4 - 8.3 g/dL NON-INTERFACED (ONBASE SCANS) Albumin (External) 3.8 3.5 - 5.0 g/dL NON-INTERFACED (ONBASE SCANS) Blood BLOOD SPECIMEN / Unknown 10/23/2022 11:20 AM CDT Narrative BREEZE PFT - 10/24/2022 11:08 AM CDT Verified by Quinn Wetzel on 10/24/2022. Mikayla Sweeney MD LAB - BLOOD ORDERABL ES Performing Organization Address [facility] Co de Phone Number BREEZE PFT NON-INTERFACED (ONBASE SCANS) * (ABNORMAL) Basic metabolic panel (10/23/2022 11:20 AM CDT) Sodium (External) 139 136 - 145 mmol/L NON-INTERFACED (ONBASE SCANS) Potassium (External) 4.3 3.5 - 5.1 mmol/L NON-INTERFACED (ONBASE SCANS) Chloride (External) 105 98 - 109 mmol/L NON-INTERFACED (ONBASE SCANS) CO2 (External) 24 20 - 29 mmol/L NON-INTERFACED (ONBASE SCANS) Anion Gap (External) 10 7 - 16 mmol/L NON-INTERFACED (ONBASE SCANS) Calcium (External) 9.4 8.4 - 10.4 mg/dL NON-INTERFACED (ONBASE SCANS) Urea Nitrogen (External) 17 7 - 26 mg/dL NON-INTERFACED (ONBASE SCANS) Creatinine (External) 0.90 0.55 - 1.02 mg/dL NON-INTERFACED (ONBASE SCANS) Glucose (External) 123(H) 70 - 100 mg/dL NON-INTERFACED (ONBASE SCANS) GFR Estimated (External) >60 >60 mL/min NON-INTERFACED (ONBASE SCANS) Blood BLOOD SPECIMEN / Unknown 10/23/2022 11:20 AM CDT Narrative LUIS PFT - 10/24/2022 11:08 AM CDT Verified by Quinn Wetzel on 10/24/2022. Mikayla Sweeney MD LAB - BLOOD ORDERABL ES LUIS PFNikole NON-INTERFACED (ONBASE SCANS) documented in this encounter Visit Diagnoses Diagnosis Class 3 severe obesity with serious comorbidity and body mass index (BMI) of 45.0 to 49.9 in adult, unspecified obesity type (H) documented in this encounter Additional Health Concerns Problem Noted Date Diagnosed Date BRIAN PATHWAY SURGERY IS SCHEDULED 10/15/2022 documented as of this encounter Care Teams Switchboard Operator Supervisor Relationship Specialty [place] [address] [place] [address] PCP - General 10/15/22 Roderick Morelos MD [address] [place] [address] Cardiovascular Disease 02/03/22 Magno Wood MD [address] [place] [address] 396 [place] [address] Otolaryngology 02/21/22 Sophie Ocasio AuD [address] [place] [address] Supply Person Audiology 02/21/22 Henny Rosales APRN [facility] [address] [place] [phone] Assigned Heart and Vascular Provider 08/09/[address] [place] [address] [phone] Registered Dietitian Dietitian, Registered 09/02/22 Christiane Rodríguez MD [address] [place] [address] Otolaryngology 11/12/22 Luis A Escobedo MD [address] [place] [address] 289325 Assigned Surgical Provider 11/01/22 11/28/22 Chely Fernandez PA-C [address] [place] [address] [phone] Assigned Surgical Provider 11/29/22 02/06/23 Jing Cadena APRN HAND BOX COVERER 420 [facility] [address] [place] [address] Clinical Nurse Specialist Anesthesiology 01/15/23 Radha Lopez, [facility] [address] [place], [place] 313[address] Pharmacist Pharmacist 01/16/23 Luis A Escobedo MD 420 [facility] [address] [place], [place] 949695 Assigned Surgical Provider 02/07/23 04/15/23 Geri Loza PA-C 9[address] [place], [place] [phone] Assigned Surgical Provider 04/16/23 documented as of this encounter
--- OUTSIDE RECORDS SUMMARY | 2023-05-09 18:24 | XMS_ITS | Encounter Summary ---
Author Name Unknown Organization [place] Address [address] [place] [address] Care Team Providers Care Camp Coordinator Name Role Phone Roderick Morelos MD Unavailable [phone] Magno Wood MD Unavailable [phone] Sophie Ocasio AuD Unavailable [phone] Henny Rosales WOOD HEEL BACK LINER GAMMA OPERATOR Unavailable [phone] Unavailable Kaykay Duarte SHUTTLE THREADER Primary Care Provider [phone] Christiane Rodríguez MD Unavailable [phone] Luis A Escobedo MD Unavailable [phone] Chely Fernandez PA-C Unavailable [phone] Jing Cadena APRN VICE PRESIDENT CLIENT SERVICES Unavailable [phone] Radha Lopez [facility] Unavailable [phone] Luis A Escobedo MD Unavailable [phone] Geri Loza PA-C Unavailable [phone] Encounter Details Date Type Department Care Team (Late st Contact Info) Description 10/17/2022 [facility] [address] [place] [phone] Henny Arguello RN Social History Tobacco Use Types Packs/Day [...] [facility] [address] [phone] Geri Loza PA-C [address] [place] [address]295 06/24/2023 1:00 PM CDT Virtual Visit [facility] Weight Management [address] [phone] Sharee Negron, RD [address] [place] [address] 035855 documented as of this encounter Goals Goal [...] documented as of this encounter Care Teams Camp Coordinator Relationship Specialty [place] [address] [place] [address] PCP - General 10/15/22 Roderick Morelos MD [address] [place], [place] 5898[address] Cardiovascular Disease 02/03/22 Magno Wood MD [address] [place] [address] 396 [place], [place] 690485 Otolaryngology 02/21/22 Sophie Ocasio AuD [address] [place] [address] [phone] Appraiser Audiology 02/21/22 Henny Rosales APRN GAMMA OPERATOR [address] [place] [phone] Assigned Heart and Vascular Provider 08/09/[address] [place] [address] [phone] Registered Dietitian Dietitian, Registered 09/02/22 Christiane Rodríguez MD [address] [place] [address] 747435 Otolaryngology 11/12/22 Luis A Escobedo MD [address] [place] [address] 867695 Assigned Surgical Provider 11/01/22 11/28/22 Chely Fernandez PA-C [address] [place] [address] 715605 Assigned Surgical Provider 11/29/22 02/06/23 Jing Cadena APRN VICE PRESIDENT CLIENT SERVICES 420 [facility] 450 [place] [address] Clinical Nurse Specialist Anesthesiology 01/15/23 Radha Lopez, [facility] [address] [place] [address] Pharmacist Pharmacist 01/16/23 Luis A Escobedo MD [address] [phone] Assigned Surgical Provider 02/07/23 04/15/23 Geri Loza PA-C [address] [place], [place] [phone] Assigned Surgical Provider 04/16/23 documented as of this encounter
--- OUTSIDE RECORDS SUMMARY | 2023-05-09 18:24 | XMS_ITS | Encounter Summary ---
Author Name Unknown Organization [place] Address [address] [place] [address] Care Team Providers Care Bulk Tank Car Unloader Name Role Phone Roderick Morelos MD Unavailable [phone] Magno Wood MD Unavailable [phone] Sophie Ocasio AuD Unavailable [phone] Henny Rosales GAME ARTIST GREEN BUILDING MATERIALS DISTRIBUTOR Unavailable [phone] Unavailable Kaykay Duarte NP Primary Care Provider [phone] Encounter Details Date Type Department Care Team (Latest Contact Info) Description 10/15/2022 Travel Social History Tobacco Use Types Packs/Day [...] Description 06/24/2023 12:30 PM CDT Virtual Visit [facility] [address] [phone] Geri Loza PA-C [address] [place] [address] 237835 06/24/2023 1:00 PM CDT Virtual Visit [facility] [address] [address] Sharee Negron, RD [address] [place] [address] 478155 documented as of this encounter Goals Goal [...] documented as of this encounter Care Teams Bulk Tank Car Unloader Relationship Specialty Start Date End Date Kaykay Duarte, GUILLERMO [address] [place] [address] [place], [place] 55[address] PCP - General 10/15/22 Roderick Morelos MD [address] [place], [place] 392375 Cardiovascular Disease 02/03/22 Magno Wood MD [address] [place] [address] 396 [place], [place] 371215 Otolaryngology 02/21/22 Sophie Ocasio AuD [address] [place] [address] [phone] Geospatial Scientist Audiology 02/21/22 Henny Rosales APRN GREEN BUILDING MATERIALS DISTRIBUTOR [address] [place] [phone] Assigned Heart and Vascular Provider 08/09/[address] [place], [place] 967685 Registered Dietitian Dietitian, Registered 09/02/22 documented as of this encounter
--- OUTSIDE RECORDS SUMMARY | 2023-05-09 18:24 | XMS_ITS | Encounter Summary ---
Author Name Unknown Organization [place] Address [address] [place] [address] Care Team Providers Care Mannequin Mold Maker Name Role Phone Roderick Morelos MD Unavailable [phone] Magno Wood MD Unavailable [phone] Sophie Ocasio AuD Unavailable [phone] Henny Rosales STRAIGHT PIN MAKING MACHINE OPERATOR ANIMAL SCIENCE INSTRUCTOR Unavailable Sharee Negron RD Unavailable Kaykay Duarte NP Primary Care Provider [phone] Reason for Visit * Reason Comments New Patient Sleeve 2020, wants r evision Encounter Details Date Type Department Care Team (Latest Contact Info) Description 10/23/2022 9:30 AM CDT Office Visit [facility] [address] 4[address] [place] [address] Luis A Escobedo MD [address] [place] [id number] Gastroesophageal reflux disease with esophagitis, unspecified whether hemorrhage (Primary Dx) Social History Tobacco Use Types [...] Sign Reading Time Taken Comments Blood Pressure 138/85 10/23/2022 9:19 AM CDT Pulse 74 10/23/2022 9:19 AM CDT Temperature - - Respiratory Rate - - Oxygen Saturation 96% 10/23/2022 9:19 AM CDT Inhaled Oxygen Concentration - - Weight 140.4 kg (309 lb 8 oz) 10/23/2022 9:19 AM CDT Height 167.6 cm (5' 6) 10/23/2022 9:19 AM CDT Body Mass Index 49.95 10/23/2022 9:19 AM CDT documented in this encounter Progress Notes * Luis A Escobedo MD - 10/23/2022 9:30 AM CDT Return Bariatric Surgery Note RE: Billie Connolly MR#: [id number] : 1970 VISIT DATE: Oct 23, 2022 Dear Ms. Duarte, I had the pleasure of seeing your patient, Billie oCnnolly, in my post-bariatric surgery assessment clinic. Assessment & Plan Problem List Items Addressed This Visit Digestive Gastroesophageal reflux disease with esophagitis - Primary Relevant Medications omeprazole (PRILOSEC) [address] capsule - Increase omeprazole frequency to BID - Continue working with medication management - Could discuss conversion surgery No LOS data to display Time spent by me doing chart review, history and exam, documentation and further activities per thenote HPI: Post-bariatric surgery follow-up for continued morbid obesity and severe reflux symptoms. Had weight of 280's range in 2018 and deferred weight loss surgery. Gained weight to 350s range prior to weight loss surgery which occurred 2 years ago. Lost weight to ~330 lbs and underwent sleeve gastrectomy at [facility] by Dr. Barillas. Has had severe GERD and persistent class III obesity. I did upper endoscopy which documented a generous gastric sleeve. Has been prescribed medications for weight loss and I have emphasized use of orlistat to limit fat absorption as well to see if a more malabsorptive operation would help. Furthermore, it would be useful to find out if weight loss would help with reflux control as that would also influence whether duodenal switch vs. Gastric bypass conversion would be more helpful for Billie. Further details: Patient weight stable around 300 pounds. Reflux is persistent. She uses tums and omeprazole. She had approximately 50 pounds of weight loss after her sleeve gastrectomy. Now prescribed Ally which she is waiting to come in the mail to start. Her physical activity is limited by hip pain. She is making diet adjustments and has been meeting with the weight loss team. She underwent EGD with Dr. Escobedo which demonstrated esophagitis. Biopsies were normal. HISTORY OF PRESENT ILLNESS: 08/12/2022 8:45 PM Questions Regarding Prior Weight Loss Surgery Reviewed With Patient I had the following weight loss procedure Sleeve Gastrectomy What year was your surgery? 2020 How has your weight changed since your last visit? I have stayed about the same Do you currently have any of the following Diabetes Sleep Apnea Heartburn, acid reflux, or GERD (acid reflux disease)? Hyperlipidemia (high cholesterol, triglycerides)? Do you have any concerns today? Yes Weight History: 08/12/2022 8:45 PM -- What is your highest lifetime weight? 352 What is your lowest weight since surgery? (In pounds) 304 Weight: 140.4 kg (309 lb 8 oz) 08/12/2022 8:45 PM Questions Regarding Co-Morbidities and Health Concerns Reviewed With Patient Pre-diabetes Stayed the same Diabetes II Stayed the same What was your most recent hemoglobin a1c 7.7 How many years have you had diabetes? 2 High Blood Pressure Never High cholesterol Stayed the same Heartburn/Reflux Worsened Sleep apnea Improved PCOS Never Back pain Stayed the same Joint pain Worsened Lower leg swelling Never 08/12/2022 8:45 PM Eating Habits How many meals do you eat per day? 3 Do you snack between meals? Sometimes How much food are you eating at each meal? 1/2 cup to 1 cup Are you able to separate your meals and liquids by at least 30 minutes? Sometimes Are you able to avoid liquid calories? Yes 08/12/2022 8:45 PM Exercise Questions Reviewed With Patient How often do you exercise? Never What keeps you from being more active? I am as active as I can possbily be Pain My ability to walk or move around is limited Too tired Social History: 08/12/2022 8:45 PM -- Are you smoking? No Are you drinking alcohol? No Medications: Current Outpatient Medications Medication ??? albuterol (PROAIR HFA/PROVENTIL HFA/VENTOLIN HFA) 108 (90 Base) MCG/ACT inhaler ??? albuterol (PROVENTIL) (2.5 MG/3ML) 0.083% neb solution ??? albuterol (PROVENTIL) (2.5 MG/3ML) 0.083% neb solution ??? blood glucose (ACCU-CHEK GUIDE) test strip ??? celecoxib (CELEBREX) 200 MG capsule ??? cyanocobalamin (CYANOCOBALAMIN) 1000 MCG/ML injection ??? estradiol (ESTRACE) 0.1 MG/GM vaginal cream ??? fluticasone (FLOVENT HFA) 110 MCG/ACT inhaler ??? gabapentin (NEURONTIN) 600 MG tablet ??? levonorgestrel (MIRENA) 52 MG (20 mcg/day) IUD ??? levothyroxine (SYNTHROID/LEVOTHROID) 200 MCG tablet ??? omeprazole (PRILOSEC) [address] capsule ??? omeprazole (PRILOSEC) [address] capsule ??? orlistat (XENICAL) 120 MG capsule ??? predniSONE (DELTASONE) 20 MG tablet ??? rOPINIRole (REQUIP) 2 MG tablet ??? Syringe/Needle, Disp, (BD ECLIPSE SYRINGE/NEEDLE) 25G X 07/28 3 ML MISC ??? tirzepatide (MOUNJARO) 15 MG/0.5ML pen No current facility-administered medications for this visit. 08/12/2022 8:45 PM -- Do you avoid NSAIDs such as (Ibuprofen, Aleve, Naproxen, Advil)? Yes ROS: GI: 08/12/2022 8:45 PM -- Vomiting No Diarrhea No Constipation Yes Swallowing trouble No Abdominal pain No Heartburn Yes Skin: 08/12/2022 8:45 PM BAR RBS ROS - SKIN Rash in skin folds No Psych: 08/12/2022 8:45 PM -- Depression No Anxiety No Female Only: 08/12/2022 8:45 PM BAR RBS ROS - Female only Loss of menstrual cycles Stress urinary incontinence No PHYSICAL EXAM: Objective BP 138/85 (BP Location: Left arm, Patient Position: Sitting, Cuff Size: Adult Large) Pulse 74 Ht 1.676 m (5' 6) Wt 140.4 kg (309 lb 8 oz) SpO2 96% BMI 49.95 kg/m?? BP 138/85 (BP Location: Left arm, Patient Position: Sitting, Cuff Size: Adult Large) Pulse 74 Ht 1.676 m (5' 6) Wt 140.4 kg (309 lb 8 oz) SpO2 96% BMI 49.95 kg/m?? Body mass index is 49.95 kg/m??. Physical Exam GENERAL: healthy, alert and no distress NECK: no adenopathy, no asymmetry RESP: NLB on RA CV: regular rate and rhythm ABDOMEN: soft, nontender, obese MS: no gross musculoskeletal defects noted, no edema Sincerely, Physician Attestation I, Luis A Escobedo, saw and evaluated this patient as part of a shared visit. I have reviewed and discussed with the advanced practice provider and/or resident their history, physical and plan. I personally reviewed the vital signs, medications, labs and imaging. My pimentel history or physical exam findings: as noted above. Pimentel management decisions made by me: plan continued RD / AMINATA assistance due to persistent class IIIobesity and reflux. Luis A Escobedo MD Date of Service (when I saw the patient): 10/24/22 documented in this encounter Nursing Notes * Yakov Rubio, EMT - 10/23/2022 9:30 AM CDT (?? Chief Complaint Patient presents with New Patient Sleeve 2020, wants revision ??) (??Weight: 140.4 kg (309 lb 8 oz)??) (??Height: 167.6 cm (5' 6)??) (??BMI (Calculated): 49.95??) (?) (?) (?) (?) (?) (?) (??BP: 138/85??) (?) (?) (?) (??Pulse: 74??) (?) (??SpO2: 96 %??) (?? Patient Active Problem List Diagnosis [...] / dyspnea or wheezing 18 g 0 albuterol (PROVENTIL) (2.5 MG/3ML) 0.083% neb solution Take 1 vial (2.5 mg) by nebulization every 6hours as needed for shortness of breath / dyspnea or wheezing 90 mL 0 albuterol (PROVENTIL) (2.5 MG/3ML) 0.083% neb solution Take 1 vial (2.5 mg) by nebulization every 4hours as needed for shortness of breath / dyspnea or wheezing 90 mL 1 blood glucose (ACCU-CHEK GUIDE) test strip USE 1 STRIP TO TEST THREE TIMES A DAY. celecoxib (CELEBREX) 200 MG capsule TAKE ONE CAPSULE BY MOUTH TWICE A DAY NEEDED FOR PAIN cyanocobalamin (CYANOCOBALAMIN) 1000 MCG/ML injection Inject 1 mL (1,000 mcg) Subcutaneous every 30days 1 mL 11 estradiol (ESTRACE) 0.1 MG/GM vaginal cream Place a pea size amount on your finger and place in vagina daily fluticasone (FLOVENT HFA) 110 MCG/ACT inhaler Inhale 2 puffs into the lungs 2 times daily as neededTakes only when sick gabapentin (NEURONTIN) 600 MG tablet Take 600 mg by mouth At Bedtime levonorgestrel (MIRENA) 52 MG (20 mcg/day) IUD 1 each by Intrauterine route levothyroxine (SYNTHROID/LEVOTHROID) 200 MCG tablet Take 200 mcg by mouth At Bedtime 90 tablet 0 omeprazole (PRILOSEC) [address] capsule Take 1 capsule (20 mg) by mouth daily 30 capsule 3 orlistat (XENICAL) 120 MG capsule Take 1 capsule (120 mg) by mouth 3 times daily (with meals) 90 capsule 5 predniSONE (DELTASONE) 20 MG tablet Take two tablets (= 40mg) each day for 5 (five) days 10 tablet 0 rOPINIRole (REQUIP) 2 MG tablet Take 2 mg by mouth 2 times daily Take in afternoon and at bedtime Syringe/Needle, Disp, (BD ECLIPSE SYRINGE/NEEDLE) 25G X 5/8 3 ML MISC 1 Syringe every 30 days 1 each 11 tirzepatide (MOUNJARO) 15 MG/0.5ML pen Inject 15 mg Subcutaneous every 7 days ??) (??Diabetes Eval: ??) (??Pain Eval: Moderate Pain (5)??) (??Wound Eval: ??) (?? History Smoking Status Never Smokeless Tobacco Never ??) (??Signed By: DELISA Gallegos; October 23, 2022; 9:31 AM??) documented in this encounter Plan of Treatment Upcoming Encounters Date Type Department Care Team (Late st Contact Info) Description 06/24/2023 12:30 PM CDT Virtual Visit [facility] [address] [place] [address] Geri Loza PA-C [address] [place] [address] 06/24/2023 1:00 PM CDT Virtual Visit [facility] [address] 4[address] [place] [address] [place] [address] documented as of this encounter Goals Goal Patient Goal Type Associated Problems Recent Progress Patient-Stated? Author BRIAN PATHWAY SURGERY IS SCHEDULED Care Plan BRIAN PATHWAY SURGERY IS SCHEDULED No Luis A Escobedo MD documented as of this encounter Visit Diagnoses Diagnosis Gastroesophageal reflux disease with esophagitis, unspecified whether hemorrhage- Primary documented in this encounter Additional Health Concerns Problem Noted Date Diagnosed Date BRIAN PATHWAY SURGERY IS SCHEDULED 10/15/2022 documented as of this encounter Care Teams Mannequin Mold Maker Relationship Specialty Start Date End Date Kaykay Duarte PERL PROGRAMMER [address] [place] [address] PCP - General 10/15/22 Roderick Morelos MD [address] [place] [address] Cardiovascular Disease 02/03/22 Magno Wood MD [address] [place] [address] [address] [place], [place] [address] Otolaryngology 02/21/22 Sophie Ocasio AuD [address] [place] [address] [phone] Associate Professor Of History Audiology 02/21/22 Henny Rosales APRN ANIMAL SCIENCE INSTRUCTOR [address] [place] [phone] Assigned Heart and Vascular Provider 08/09/[address] [place] [address] Registered Dietitian Dietitian, Registered 09/02/22 documented as of this encounter
--- OUTSIDE RECORDS SUMMARY | 2023-05-09 18:24 | XMS_ITS | Encounter Summary ---
Author Name Unknown Organization [facility] Address [address] [place] [address] Care Team Providers Care Turning Machine Operator Name Role Phone Roderick Morelos MD Unavailable [phone] Magno Wood MD Unavailable [phone] Sophie Ocasio AuD Unavailable [phone] Henny Rosales APRN PROCESS LINE OPERATOR Unavailable [phone] [facility] Primary Care Pr ovider Sharee Negron RD Unavailable Kaykay Duarte ASSISTANT ATHLETIC TRAINER Primary Care Provider [phone] Reason for Visit * Reason Onset Date Comments Pt. Information/instruction 10/02/2022 EGD Encounter Details Date Type Department Care Team ([facility] st Contact Info) Description 10/02/2022 Telephone [facility] Endoscopy [address] [place] [address] Kaykay Gallegos, SKIP Pt. Information/instruction (EGD) Social History Tobacco Use Types Packs/Day Years [...] encounter Miscellaneous Notes * Telephone Encounter - Kaykay Gallegos RN - 10/03/2022 9:16 AM CDT Pre assessment completed for upcoming procedure. Procedure details: Patient scheduled for Upper endoscopy (EGD) on 10/15/22. Arrival time: 1200. Procedure time 1300 Pre op exam needed? N/A Facility location: [facility]; [address] [place] [address] Sedation type: Conscious sedation Indication for procedure: GERD COVID policy reviewed. Designated electric screw driver operator policy reviewed. Instructed to have someone stay 6 hours post procedure. Chart review: Electronic implanted devices? No Diabetic? Yes- see medication holding recommendations Diabetic medication HOLDING recommendations: (if applicable) Oral diabetic medications: No Diabetic injectables: Yes- Mounjaro (Tirzepatide). Weekly dosing of medication. Hold 7 days before procedure. Follow up with managing provider. Insulin: No Medication review: Anticoagulants? No NSAIDS? Yes. Ibuprofen (Advil, Motrin). Holding interval of 1 day before procedure. Other medication HOLDING recommendations: N/A Prep for procedure: Prep instructions sent via [employer]. Reviewed procedure prep instructions. Patient verbalized understanding and had no questions or concerns at this time. Kaykay Gallegos RN Endoscopy Procedure Pre title checker [phone] option 4 * Telephone Encounter - Kaykay Gallegos RN - 10/02/2022 4:28 PM CDT Pre visit planning completed. Procedure details: Patient scheduled for Upper endoscopy (EGD) on 10/15/22. Arrival time: 1200. Procedure time 1300 Pre op exam needed? N/A Facility location: [facility]; [address] [place] [address], [address] [place] [address] Sedation type: Conscious sedation Indication for procedure: GERD Chart review: Electronic implanted devices? No Diabetic? Yes- see medication holding recommendations Diabetic medication HOLDING recommendations: (if applicable) Oral diabetic medications: No Diabetic injectables: Yes- Carie (Tirzepatide). Weekly dosing of medication. Hold 7 days before procedure. Follow up with managing provider. Insulin: No Medication review: Anticoagulants? No NSAIDS? No NSAID medications per patient's medication list. RN will verify with pre-assessment call. Other medication HOLDING recommendations: N/A Prep for procedure: Prep instructions sent via [employer] Kaykay Gallegos RN Endoscopy Procedure Pre title checker [phone] option 4 documented in this encounter Plan of Treatment Upcoming Encounters Date Type Department Care Team (Late st Contact Info) Description 06/24/2023 12:30 PM CDT Virtual Visit [facility] Weight Management [address] [phone] Geri Loza PA-C [address] [place] [address] [phone] 06/24/2023 1:00 PM CDT Virtual Visit [facility] [address] [phone] Sharee Negron, RD [address] [place] [phone] documented as of this encounter Visit Diagnoses Not on filedocumented in this encounter Care Teams Turning Machine Operator Relationship Specialty Start Date End Date Clinic, [facility] [place] [address] [place], [place] [address] PCP - General 08/19/22 10/14/22 [place] [address] [place] [id number] PCP - General 10/15/22 Roderick Morelos MD [address] [place] [id number] Cardiovascular Disease 02/03/22 Magno Wood MD [address] [place] [address] [address] [place], [place] [address] Otolaryngology 02/21/22 Sophie Ocasio AuD [address] [place] [address] [phone] Milking Machine Technician Audiology 02/21/22 Henny Rosales APRN PROCESS LINE OPERATOR [address] [place] [id number] Assigned Heart and Vascular Provider 08/09/[address] [place] [address] Registered Dietitian Dietitian, Registered 09/02/22 documented as of this encounter
--- OUTSIDE RECORDS SUMMARY | 2023-05-09 18:25 | XMS_ITS | Encounter Summary ---
Author Name Unknown Organization [facility] Address [address] [place] [address] Care Team Providers Care School Bus Aide Name Role Phone Roderick Morelos MD Unavailable [phone] Magno Wood MD Unavailable [phone] Sophie Ocasio Unavailable [phone] Henny Rosales OPTICAL SALES ASSOCIATE SHIPPING SERVICES SALES REPRESENTATIVE Unavailable [phone] [facility] Primary Care Pr ovider Sharee Negron RD Unavailable Kaykay Duarte GEOSPATIAL INFORMATION SCIENTIST Primary Care Provider Christiane Rodrgíuez MD Unavailable [phone] Luis A Escobedo MD Unavailable [phone] Chely Fernandez PA-C Unavailable [phone] Jing Cadena OPTICAL SALES ASSOCIATE MUSEUM PREPARATOR Unavailable [phone] Radha Lopez [facility] Unavailable [phone] Luis A Escobedo MD Unavailable [phone] Geri Loza PA-C Unavailable [phone] Encounter Details Date Type Department Care Team (Late st Contact Info) Description 09/09/2022 MyC Medical Advice [facility] Weight Management [address] [phone] Tanya Larsen RN Social History Tobacco Use Types Packs/Day Years Used Date Smoking Tobacco: Never Smokeless Tobacco: Never Alcohol Use Standard Drinks/Week Comments Yes 0 (1 standard drink = 0.6 oz pur e alcohol) socially PHQ-2 Answer Date Recorded PHQ-2 Score 0 09/02/2022 Sex and Gender Information Value Date Recorded Sex Assigned at Not on file Gender Identity Not on file Sexual Orientation Not on file documented as of this encounter Plan of Treatment Upcoming Encounters Date Type Department Care Team (Late st Contact Info) Description 06/24/2023 12:30 PM CDT Virtual Visit [facility] [address] [phone] Geri Loza PA-C [address] [place] [address] [phone] 06/24/2023 1:00 PM CDT Virtual Visit [facility] [address] [phone] Sharee Negron, RD [address] [place] [address] [phone] documented as of this encounter Visit Diagnoses Not on filedocumented in this encounter Care Teams School Bus Aide Relationship Specialty Start Date End [place] [address] [place] [address] PCP - General 08/19/22 10/14/22 Kaykay Duaret, GEOSPATIAL INFORMATION SCIENTIST [address] [place] [address] PCP - General 10/15/22 Roderick Morelos MD [address] [place] [address] Cardiovascular Disease 02/03/22 Magno Wood MD [address] [place] [address] [address] [place] [address] Otolaryngology 02/21/22 Sophie Ocasio AuD [address] [place] [address] Engineer Assistant Audiology 02/21/22 Henny Rosales APRN SHIPPING SERVICES SALES REPRESENTATIVE [address] [place] [phone] Assigned Heart and Vascular Provider 08/09/[address] [place] [phone] Registered Dietitian Dietitian, Registered 09/02/22 Christiane Rodríguez MD [address] [place] [address] [phone] Otolaryngology 11/12/22 Luis A Escobedo MD [address] [place] [address] [phone] Assigned Surgical Provider 11/01/22 11/28/22 Chely Fernandez PA-C [address] [place] [address] [phone] Assigned Surgical Provider 11/29/22 02/06/23 Jing Cadena OPTICAL SALES ASSOCIATE MUSEUM PREPARATOR [address] [place] [address] [address] [place] [address] Clinical Nurse Specialist Anesthesiology 01/15/23 Radha Lopez [facility] [address] [place] [address] Pharmacist Pharmacist 01/16/23 Luis A Escobedo MD [address] [place] [address] [phone] Assigned Surgical Provider 02/07/23 04/15/23 Geri Loza PA-C [address] [place] [address] Assigned Surgical Provider 04/16/23 documented as of this encounter
--- OUTSIDE RECORDS SUMMARY | 2023-05-09 18:25 | XMS_ITS | Encounter Summary ---
Author Name Unknown Organization [place] Address [address] [place] [address] Care Team Providers Care Degreaser Name Role Phone Roderick Morelos MD Unavailable [phone] Magno Wood MD Unavailable [phone] Sophie Ocasio AuD Unavailable [phone] Henny Rosales APRN FRUIT TRIMMER Unavailable [phone] [facility] Pr ovider Sharee Negron RD Unavailable Reason for Referral * Consultation (Routine: Next available opening) - Pending Review Specialty Diagnoses / Procedures Referred By Osmar gallego Referred To Contact Gastroenterology Diagnoses Gastroesophageal reflux disease with esophagitis, unspecified whether hemorrhage S/P laparoscopic sleeve gastrectomy Geri Loza PA-C [address] [place] [address] Referral ID Status Reason Start Date Expiration Date V isits Requested Visits Authorized Pending Review 09/02/2022 09/02/2023 1 1 Question Answer Service: Upper Endoscopy Upper Endoscopy Type: EGD Sedation Concerns: No medical conditions affecting sedation Sedation Type: Moderate/Conscious Sedation Reason for Upper Endoscopy: S/p gastric sleeve. GERD. Possible revision or conversion Preferred Location: [facility] Dr. Escobedo Scheduling Instructions: [facility] will call you to coordinate your care as prescribed by the provider. If you don? t hear from a traveling representative within 2 business days, please call . Comments Please be aware that coverage of these services is subject to the terms and limitations of your health insurance plan. Call member services at your health plan with any benefit or coverage questions. [facility] will call you to coordinate your care as prescribed by the provider. If you don? t hear from a traveling representative within 2 business days, please call . Encounter Details Date Type Department Care Team (Late st Contact Info) Description 09/02/2022 Orders Only [facility] [address] [phone] Geri Loza PA-C [address] [place] [address] Gastroesophageal reflux disease with esophagitis, unspecified whether hemorrhage (Primary Dx); S/P laparoscopic sleeve gastrectomy; Class [...] suspected to have Coronavirus/COVID-19? No / Unsure 08/08/2022 8:54 AM CDT documented as of this encounter Progress Notes * Geri Loza PA-C - 09/02/2022 3:37 PM CDT Discussed possible conversion or revision with Dr. Escobedo and bariatric team. Called patient to discuss next steps. Discussed how conversion or revision is not guaranteed at this time, but will reevaluate in 6 months. Discussed weight loss of 20lbs required for surgery. She reached out to insuranceand surgery is covered. Plan: 1. EGD ordered for further evaluation of gastric sleeve and GERD. 2. Start orlistat to help with weight loss and for understanding of diarrhea with possible conversion to DS. 3. Dietitian monthly for the next 6 months. Saw Sharee today 4. Follow up with Geri Gaytan 11/05/[address] Escobedo in 6 months to discuss possible conversion/revision. Geri Loza PA-C documented in this encounter Plan of Treatment Upcoming Encounters Date Type Department Care Team (Late st Contact Info) Description 06/24/2023 12:30 PM CDT Virtual Visit [facility] [address] [phone] Geri Loza PA-C [address] [place] [address] [phone] 06/24/2023 1:00 PM CDT Virtual Visit [facility] [address] [phone] Sharee Negron, RD [address] [place] [address] [phone] Scheduled Referrals Name Type Priority Associated Diagnoses Orde r Schedule Adult GI Hat Former Referral - Procedure Only Referral Routine: Next available opening Gastroesophageal reflux disease with esophagitis, unspecified whether hemorrhage S/P laparoscopic sleeve gastrectomy Expected: 09/02/2022 (Approximate), Expires: 09/03/2023 documented as of this encounter Visit Diagnoses Diagnosis Gastroesophageal reflux disease with esophagitis, unspecified whether hemorrhage- Primary S/P laparoscopic sleeve gastrectomy Class 3 severe obesity with serious comorbidity and body mass index (BMI) of 45.0 to 49.9 in adult, unspecified obesity type (H) documented in this encounter Care Teams Degreaser Relationship Specialty Start Date End Date Clinic, [facility]ent [place] [address] [place] [address] PCP - General 08/19/22 10/14/22 Roderick Morelos MD [address] [place] [address] Cardiovascular Disease 02/03/22 Magno Wood MD [address] [place] [address] [address] [place], [place] 645415 Otolaryngology 02/21/22 Sophie Ocasio AuD [address] [place] [address] [phone] Video Control Engineer Audiology 02/21/22 Henny Rosales APRN FRUIT TRIMMER [address] [place] [phone] Assigned Heart and Vascular Provider 08/09/[address] [place], [place] [phone] Registered Dietitian Dietitian, Registered 09/02/22 documented as of this encounter
--- OUTSIDE RECORDS SUMMARY | 2023-05-09 18:25 | XMS_ITS | Encounter Summary ---
Author Name Unknown Organization [place] Address [address] [place] [address] Care Team Providers Care Sales Floor Team Leader Name Role Phone Roderick Morelos MD Unavailable [phone] Magno Wood MD Unavailable [phone] Sophie Ocasio AuD Unavailable [phone] Henny Rosales APRN EXT JS DEVELOPER Unavailable [phone] [facility] [place] [facility] Pr ovider Sharee Negron RD Unavailable Reason for Visit * Reason Onset Date Comments Procedure 09/15/2022 Encounter Details Date Type Department Care Team (Late st Contact Info) Description 09/15/2022 Telephone [facility] Gastroenterology Clinic [address] 4th [place] [address] Maria Guadalupe Wolfe Procedure Social History Tobacco Use Types Packs/Day Years [...] encounter Miscellaneous Notes * Telephone Encounter - Maria Guadalupe Wolfe - 09/15/2022 10:25 AM CDT Endoscopy Scheduling Screen Have you had a positive Covid test in the last 14 days? No Are you active on MyChart? Yes What insurance is in the chart? Other: Ordering/Referring Provider: Geri Loza (If ordering provider performs procedure, schedule with ordering provider unless otherwise instructed. ) BMI: Estimated body mass index is 48.91 kg/m?? as calculated from the following: Height as of 09/02/22: 1.676 m (5' 6). Weight as of 09/02/22: 137.4 kg (303 lb). Sedation Ordered moderate sedation. If patient BMI > 50 do not schedule in ASC. Are you taking any prescription medications for pain? No Are you taking methadone or Suboxone? No Do you have a history of malignant hyperthermia or adverse reaction to anesthesia? No (Females) Are you currently ? No Have you been diagnosed or told you have pulmonary hypertension? No Do you have an LVAD? No Have you been told you have moderate to severe sleep apnea? y machine Have you been told you have COPD, asthma, or any other lung disease? Yes What breathing problems do you have? Asthma Do you use home oxygen? No Have your breathing problems required an ED visit or hospitalization in the last year? No Do you have any heart conditions? No Have you ever had or are you awaiting a heart or lung transplant? No Have you had a stroke or transient ischemic attack (TIA aka mini stroke in the last 6 months? No Have you been diagnosed with or been told you have cirrhosis of the liver? No Are you currently on dialysis? No Do you need assistance transferring? No BMI: Estimated body mass index is 48.91 kg/m?? as calculated from the following: Height as of 09/02/22: 1.676 m (5' 6). Weight as of 09/02/22: 137.4 kg (303 lb). Is patients BMI > 40 and scheduling location [facility]? No Do you take the medication Phentermine, Ozempic or Wegovy? No Do you take the medication Naltrexone? No Do you take blood thinners? No Prep Are you currently on dialysis or do you have chronic kidney disease? No Do you have a diagnosis of diabetes? Yes (Golytely Prep) Do you have a diagnosis of cystic fibrosis (CF)? No On a regular basis do you go 3 -5 days between bowel movements? No BMI > 40? Yes (Extended Prep) Preferred Pharmacy: [id number] - [place] - [id number] [place] [id number] Final Scheduling Details Colonoscopy prep sent? N/A Procedure scheduled Upper endoscopy (EGD) Surgeon: Fanny Date of procedure: 10/15 Schedule PAC: No Location [facility] Sedation Moderate Sedation Patient Reminders: ??? You will receive a call from a Nurse to review instructions and health history. This assessmentmust be completed prior to your procedure. Failure to complete the Nurse assessment may result in the procedure being cancelled. ??? On the day of your procedure, please designate an adult(s) who can drive you home stay with youfor the next 24 hours. The medicines used in the exam will make you sleepy. You will not be able todrive. ??? You cannot take public transportation, ride share services, or non-medical taxi service withouta responsible caregiver. Medical transport services are allowed with the requirement that a responsible caregiver will receive you at your destination. We require that drivers and caregivers are confirmed prior to your procedure. documented in this encounter Plan of Treatment Upcoming Encounters Date Type Department Care Team (Late st Contact Info) Description 06/24/2023 12:30 PM CDT Virtual Visit [facility] Weight Management Clinic [address] [phone] Geri Loza PA-C [address] [place] [address] [phone] 06/24/2023 1:00 PM CDT Virtual Visit [facility] [address] [phone] Sharee Negron, ÁNGEL [address] [place] [address] [phone] documented as of this encounter Visit Diagnoses Not on filedocumented in this encounter Care Teams Sales Floor Team Leader Relationship Specialty Start Date End Date Clinic, [facility] [place] [address] [place], [place] 776157 PCP - General 08/19/22 10/14/22 Roderick Morelos MD [address] [place] [address] Cardiovascular Disease 02/03/22 Magno Wood MD [address] [place] [address] [phone] Otolaryngology 02/21/22 Sophie Ocasio AuD [address] [place] [address] [phone] Web Machine Tender Audiology 02/21/22 Henny Rosales APRN EXT JS DEVELOPER [address] [place] [phone] Assigned Heart and Vascular Provider 08/09/[address] [place] [address] [phone] Registered Dietitian Dietitian, Registered 09/02/22 documented as of this encounter
--- OUTSIDE RECORDS SUMMARY | 2023-05-09 18:25 | XMS_ITS | Encounter Summary ---
Author Name Unknown Organization [place] Address [address] [place] [address]. [place] [address] Care Team Providers Care Electric Sealing Machine Operator Name Role Phone Roderick Morelos MD Unavailable [phone] Magno Wood MD Unavailable [phone] Sophie Ocasio AuD Unavailable [phone] Henny Rosales APRN STORAGE ARCHITECT Unavailable [phone] [facility] [place] [facility] Pr ovider Sharee Negron RD Unavailable Kaykay Duarte IT APPLICATION ARCHITECT Primary Care Provider [phone] Reason for Visit * Reason Comments Clinic Care Coordination - Follow-up Encounter Details Date Type Department Care Team (Late st Contact Info) Description 09/19/2022 Care Coordination [facility] [place] [address] [facility] [address] 4th [place] [address] Radha Dominguez, RN [address] [facility] [address] [place] [address] Clinic Care Coordination - Follow-up [...] Virtual Visit [facility] Weight Management [address] [phone] Geri Loza PA-C [address] [place] [address] [phone] 06/24/2023 1:00 PM CDT Virtual Visit [facility] Weight Management [address] [phone] Sharee Negron, RD [address] [place] [address] [phone] documented as of this encounter Visit Diagnoses Not on filedocumented in this encounter Care Teams Electric Sealing Machine Operator Relationship Specialty Start Date End Date Clinic, [facility] [place] [address] [place], [place] 339167 PCP - General 08/19/22 10/14/22 Kaykay Duarte, IT APPLICATION ARCHITECT [address] [place] [address] [place] [address] PCP - General 10/15/22 Roderick Morelos MD [address] [place] [address] Cardiovascular Disease 02/03/22 Magno Wood MD [address] [facility] [address] [place] [address] Otolaryngology 02/21/22 Sophie Ocasio AuD [address] [place] [address] Hotshot Superintendent Audiology 02/21/22 Henny Rosales APRN STORAGE ARCHITECT [address] [place] [address] Assigned Heart and Vascular Provider 08/09/[address] [place] [address] Registered Dietitian Dietitian, Registered 09/02/22 documented as of this encounter
--- OUTSIDE RECORDS SUMMARY | 2023-05-09 18:25 | XMS_ITS | Encounter Summary ---
Author Name Unknown Organization [facility] Address [address] [place] [address] Care Team Providers Care Dowel Inspector Name Role Phone Roderick Morelos MD Unavailable [phone] Magno Wood MD Unavailable Sophie Ocasio Unavailable [phone] Henny Rosales PHYSICAL THERAPIST TECHNICIAN RAILWAY SIGNAL ELECTRICIAN Unavailable [phone] [facility] Primary Care Pr ovider Sharee Negron RD Unavailable Kyakay Duarte FIELD SERVICE COORDINATOR Primary Care Provider Christiane Rodríguez MD Unavailable [phone] Luis A Escobedo MD Unavailable [phone] Chely Fernandez PA-C Unavailable [phone] Jing Cadena PHYSICAL THERAPIST TECHNICIAN ANTITANK ASSAULT GUNNER Unavailable [phone] Radha Lopez [facility] Unavailable [phone] Luis A Escobedo MD Unavailable [phone] Geri Loza PA-C Unavailable [phone] Encounter Details Date Type Department Care Team (Late st Contact Info) Description 09/02/2022 MyC Medical Advice [facility] Weight Management [address] [phone] Geri Loza PA-C [address] [place] [address] Social History Tobacco Use Types Packs/Day Years [...] Description 06/24/2023 12:30 PM CDT Virtual Visit [facility] Weight Management [address] [phone] Geri Loza PA-C [address] [place] [address] 06/24/2023 1:00 PM CDT Virtual Visit [facility] Weight Management [address] [phone] Sharee Negron, RD [address] [place] [address] documented as of this encounter Visit Diagnoses Not on filedocumented in this encounter Care Teams Dowel Inspector Relationship Specialty Start Date End Date Clinic, [facility] [place] [address] [place] [address] PCP - General 08/19/22 10/14/22 Kaykay Duarte, FIELD SERVICE COORDINATOR [address] [place] [address] PCP - General 10/15/22 Roderick Morelos MD [address] [place], [place] 85[address] Cardiovascular Disease 02/03/22 Magno Wood MD [address] [place] [address] 105175 Otolaryngology 02/21/22 Sophie Ocasio AuD [address] [place] [address] [phone] Auto Body Repairman Audiology 02/21/22 Henny Rosales, PHYSICAL THERAPIST TECHNICIAN RAILWAY SIGNAL ELECTRICIAN [address] [place] [phone] Assigned Heart and Vascular Provider 08/09/[address] [place] [address] [phone] Registered Dietitian Dietitian, Registered 09/02/22 Christiane Rodríguez MD [address] [place] [address] 094485 Otolaryngology 11/12/22 Luis A Escobedo MD [address] [place] [address] [phone] Assigned Surgical Provider 11/01/22 11/28/22 Chely Fernandez PA-C [address] [place], [place] 166895 Assigned Surgical Provider 11/29/22 02/06/23 Jing Cadena, PHYSICAL THERAPIST TECHNICIAN ANTITANK ASSAULT GUNNER [address] [facility] [address] [place], [place] 480[address] Clinical Nurse Specialist Anesthesiology 01/15/23 Radha Lopez, [facility] [address] [place], [place] 944675 Pharmacist Pharmacist 01/16/23 Luis A Escobedo MD [address] [facility] [address] [place], [place] [address]25 Assigned Surgical Provider 02/07/23 04/15/23 Geri Loza PA-C [address] [place] [address] [phone] Assigned Surgical Provider 04/16/23 documented as of this encounter
--- OUTSIDE RECORDS SUMMARY | 2023-05-09 18:25 | XMS_ITS | Encounter Summary ---
Author Name Unknown Organization [facility] Address [address] [place] [address] Care Team Providers Care Non Profit Job Titles Name Role Phone Roderick Morelos MD Unavailable [phone] Magno Wood MD Unavailable [phone] Sophie Ocasio Unavailable [phone] Henny Rosales APRN PHYSICIST ACOUSTICS Unavailable [phone] [facility] Pr ovider Sharee Negron RD Unavailable Reason for Visit * Reason Comments RECHECK Encounter Details Date Type Department Care Team (Latest Contact Info) Description 09/29/2022 8:30 AM CDT Virtual Visit [facility] [address] [place] [address] Sharee Negron, RD [address] [place] [address] Nutritional counseling (Primary Dx); Gastroesophageal reflux disease [...] - Inhaled Oxygen Concentration - - Weight 137.4 kg (303 lb) 09/29/2022 8:12 AM CDT Height 167.6 cm (5' 6) 09/29/2022 8:12 AM CDT Body Mass Index 48.91 09/29/2022 8:12 AM CDT documented in this encounter Patient Instructions * Patient Instructions* Sharee Negron, RD - 09/29/2022 8:30 AM CDT Goals: Specific things discussed today 1. Aim to not have fluids with meal time 2. Continue working on chewing/pace 3. Recommend pool exercises as able/tolerated. 4. Get labs done when able General goals: Relating To Eating: - Eat [...] vitamins/minerals as recommended Supplements after Sleeve Gastrectomy [email or web address] Weight loss prior to surgery: -20 lbs (weight of 285 lbs) LABS Lab have been ordered. Please make an appointment to have them drawn at your convenience. To schedule the Lab Appointment using [employer]: Select Schedule an Appointment Select Lab Only For A couple of questions, select Other For Which locations work for you?, select the location and set up the appointment To schedule by phone call [phone] to schedule a lab only appointment at [facility] lab. Protein Supplements for After Surgery: Unflavored protein [...] Clear Protein Drinks: BiPro Premier Protein clear [id number] M Health Protein 15 Concentrate Bone broth Beneprotein protein powder mixed with 4-6 oz of fluid [id number] After Weight Loss Surgery Why Take Supplements for Life after Weight Loss Surgery [email or web address] Keeping Up Your Diet after Weight Loss Surgery [email or web address] Preventing Low Blood Sugar after Weight Loss Surgery [email or web address] Preventing Dumping Syndrome after Weight Loss Surgery [email or web address] Follow-Up: Monthly SIVA Terrazas RD, LD Clinic #: [phone] documented in this encounter Progress Notes * Sharee Negron RD - 09/29/2022 8:30 AM CDT Images from the original note were not included. Billie Connolly is a 51 year old female who is being evaluated via a billable video visit. The patient has been notified of following: This video visit will be conducted via a call between you and your physician/provider. We have found that certain health care needs can be provided without the need for an in-person physical exam. This service lets us provide the care you need with a video conversation. If a prescription is necessary we can send it directly to your pharmacy. If lab work is needed we can place an order for that and you can then stop by our lab to have the test done at a later time. Video visits are billed at different rates depending on your insurance coverage. Please reach out to your insurance provider with any questions. If during the course of the call the physician/provider feels a video visit is not appropriate, youwill not be charged for this service. Patient has given verbal consent for Video visit? Yes How would you like to obtain your AVS? MyChart If you are dropped from the video visit, the video invite should be resent to: Text to cell phone: [phone] Will anyone else be joining your video visit? No {If patient encounters technical issues they should call [phone] Video-Visit Details Type of service: Video Visit Video Start Time: 8:30 am Video End Time: 8:52 am Originating Location (pt. Location): Home Distant Location (provider location): Offsite (providers home) Platform used for Video Visit: Endosense During this virtual visit the patient is located in [place], patient verifies this as the location during the entirety of this visit. Nutrition Assessment Reason For Visit: Billie Connolly is a 51 year old female presents today for new re-establish nutrition visit. Pt withhistory of sleeve gastrectomy 08/09/[address] [facility] [address] Barillas. Patient referred by Geri Loza PA-C on August 15, 2022. Patient with Co-morbidities of obesity including: Type II DM Sleep apnea Joint pain - chronic right hip pain GERD PMH: hypothyroidism, SVT, RLS Anthropometrics: Pre-op Weight: 338 lbs Weight 08/15/22: 305 lbs with BMI 49.23 Estimated body mass index is 48.91 kg/m?? as calculated from the following: Height as of this encounter: 1.676 m (5' 6). Weight as of this encounter: 137.4 kg (303 lb). Current weight: 303 lbs, pt report Goal weight for surgery -20 lbs, 285 lbs Medications for weight loss: Orlistat added 09/02/22 - Denied, going to try Marquez instead. Has not stated yet due to being on vacation. Home now and plans to start. Carie - has type 2 diabetes Current Vitamins/Minerals: B12 monthly injections Sandwich with iron Due for yearly neida labs. Orders in. Just had labs done but they did not do all of them. Labs 08/20/22 A1C 7.2 TSH elevated Nutrition History: NKFA Not huge on fish/seafood [...] inch subway or a breakfast sandwich on algerian muffin for reference Wakes up ravenous. 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 Aim to not have fluids with meal time 2. Continue working on chewing/pace 3. Recommend pool exercises as able/tolerated. 4. Get labs done when able General goals: Relating To Eating: - Eat [...] vitamins/minerals as recommended Supplements after Sleeve Gastrectomy [email or web address] Weight loss prior to surgery: -20 lbs (weight of 285 lbs) LABS ??? Lab have been ordered. Please make an appointment to have them drawn at your convenience. ??? To schedule the Lab Appointment using [employer]: o Select Schedule an Appointment o Select Lab Only o For A couple of questions, select Other o For Which locations work for you?, select the location and set up the appointment ??? To schedule by phone call [phone] to schedule a lab only appointment at [facility] lab. Protein Supplements for After Surgery: ?? Unflavored protein powder: Genepro, Isopure (25-30 gm protein per 1 scoop), Vital HP Collagen Peptide ?? You may also use flavored protein powder if you prefer. ?? Pre-made protein shakes (no more than 210 Calories, at least 20 grams of protein, and less than 10 grams of sugar): ?? Premier Protein (160 Calories, 30 g protein) ?? Boost/Ensure Max (160 calories, 30 gm protein) ?? Ning Core Power (170 calories, 26 gm protein) ?? Aldi's Elevation Protein Shake (160 calories, 30 gm protein) ?? Equate Protein Shake (160 calories, 30 gm protein) ?? Slim Fast Advanced Nutrition (180 Calories, 20 g protein) ?? Muscle Milk, lactose-free, 17 oz bottle (210 Calories, 30 g protein) ?? Glucerna Protein Smart (150 juan pablo, 30 gm protein) ?? Clear Protein Drinks: ?? BiPro ?? Premier Protein clear ?? Mazbmax1X ?? M Health Protein 15 Concentrate ?? Bone broth ?? Beneprotein protein powder mixed with 4-6 oz of fluid ?? [id number] After Weight Loss Surgery Why Take Supplements for Life after Weight Loss Surgery [email or web address] Keeping Up Your Diet after Weight Loss Surgery [email or web address] Preventing Low Blood Sugar after Weight Loss Surgery [email or web address]://[email or web address] Preventing Dumping Syndrome after Weight Loss Surgery [email or web address] Follow-Up: Monthly Time spent with patient: 22 minutes. SIVA Matias, RD, LD documented in this encounter Nursing Notes * Daljit Enamorado - 09/29/2022 8:30 AM CDT Is the patient currently in the state of [place]? YES Visit mode:VIDEO If the visit is dropped, the patient can be reconnected by: VIDEO VISIT: Text to cell phone: [phone] Will anyone else be joining the visit? NO How would you like to obtain your AVS? MyChart Are changes needed to the allergy or medication list? NO Pt states allergies/medications reviewed in mychart/declines further review. Reason for visit: MERCY Alejandra on 09/29/2022 at 8:14 AM documented in this encounter Plan of Treatment Upcoming Encounters Date Type Department Care Team (Late st Contact Info) Description 06/24/2023 12:30 PM CDT Virtual Visit [facility] [address] 4th [place] [address] Geri Loza PA-C [address] [place] [address] 06/24/2023 1:00 PM CDT Virtual Visit [facility] [address] 4th [place] [phone] [place] [address] [phone] documented as of this encounter Visit Diagnoses Diagnosis Nutritional counseling- Primary Gastroesophageal reflux disease with esophagitis, unspecified whether hemorrhage S/P laparoscopic sleeve gastrectomy Class 3 severe obesity with serious comorbidity and body mass index (BMI) of 45.0 to 49.9 in adult, unspecified obesity type (H) documented in this encounter Care Teams Non Profit Job Titles Relationship Specialty Start Date End Date Clinic, [facility] [address] [place], [place] 059537 PCP - General 08/19/22 10/14/22 Roderick Morelos MD [address] [place] [address] Cardiovascular Disease 02/03/22 Magno Wood MD [address] [place] [address] 709295 Otolaryngology 02/21/22 Sophie Ocasio AuD [address] [place] [address] [phone] End Polisher Audiology 02/21/22 Henny Rosales APRN PHYSICIST ACOUSTICS [address] [place] [phone] Assigned Heart and Vascular Provider 08/09/[address] [place] [address] Registered Dietitian Dietitian, Registered 09/02/22 documented as of this encounter
--- OUTSIDE RECORDS SUMMARY | 2023-05-09 18:25 | XMS_ITS | Encounter Summary ---
Author Name Unknown Organization [facility] Address [address] [place] [address] Care Team Providers Care Conveyor Attendant Name Role Phone Roderick Morelos MD Unavailable [phone] Magno Wood MD Unavailable [phone] Sophie Ocasio Unavailable [phone] Henny Rosales FITNESS SPECIALIST RESPIRATORY ASSISTANT Unavailable [phone] [facility] Primary Care Pr ovider Sharee Negron RD Unavailable Kaykay Duarte SITE ACQUISITION SPECIALIST Primary Care Provider Christiane Rodríguez MD Unavailable [phone] Luis A Escobedo MD Unavailable [phone] Chely Fernandez PA-C Unavailable [phone] Jing Cadena FITNESS SPECIALIST WEAPONS SPECIALIST Unavailable [phone] Radha Lopez [facility] Unavailable [phone] Luis A Escobedo MD Unavailable [phone] Geri Loza PA-C Unavailable [phone] Encounter Details Date Type Department Care Team (Late st Contact Info) Description 09/15/2022 MyC Medical Advice [facility] Gastro[facility]ology Clinic [address] [phone] Kang Griffiths Social History Tobacco Use Types [...] 06/24/2023 12:30 PM CDT Virtual Visit [facility] Weight Management [address] [phone] Geri Loza PA-C [address] [place] [address] 284505 06/24/2023 1:00 PM CDT Virtual Visit [facility] Weight Management [address] [phone] Sharee Negron, RD [address] [place] [address] [phone] documented as of this encounter Visit Diagnoses Not on filedocumented in this encounter Care Teams Conveyor Attendant Relationship Specialty Start [place] [address] [place], [place] 131157 PCP - General 08/19/22 10/14/22 Kaykay Duarte SITE ACQUISITION SPECIALIST [address] [place] [address] [place] [address] PCP - General 10/15/22 Roderick Morelos MD [address] [place] [address] Cardiovascular Disease 02/03/22 Magno Wood MD [address] [place] [address] Otolaryngology 02/21/22 Sophie Ocasio AuD [address] [place] [address] 400575 Project Manager/Team Coach Audiology 02/21/22 Henny Rosales APRN RESPIRATORY ASSISTANT [address] [place] [phone] Assigned Heart and Vascular Provider 08/09/[address] [place] [address] Registered Dietitian Dietitian, Registered 09/02/22 Christiane Rodríguez MD [address] [place] [address] 055315 Otolaryngology 11/12/22 Luis A Escobedo MD [address] [place] [address] 525805 Assigned Surgical Provider 11/01/22 11/28/22 Chely Fernandez PA-C [address] [place] [address] Assigned Surgical Provider 11/29/22 02/06/23 Jing Cadena FITNESS SPECIALIST WEAPONS SPECIALIST [address] [phone] Clinical Nurse Specialist Anesthesiology 01/15/23 Radha Lopez [facility] 909 [place], [place] 467715 Pharmacist Pharmacist 01/16/23 Luis A Escobedo MD [address] 490835 Assigned Surgical Provider 02/07/23 04/15/23 Geri Loza PA-C [address] [place] [address] [phone] Assigned Surgical Provider 04/16/23 documented as of this encounter
--- OUTSIDE RECORDS SUMMARY | 2023-05-09 18:25 | XMS_ITS | Encounter Summary ---
Author Name Unknown Organization [facility] [employer] Address [address] [place] [address] Care Team Providers Care Bulwark Carpenter Name Role Phone Roderick Morelos MD Unavailable [phone] Magno Wood MD Unavailable [phone] Sophie Ocasio Unavailable [phone] Henny Rosales MEDICAL ESTHETICIAN SVP PROGRAMMATIC TV Unavailable [phone] [facility] Primary Care Pr ovider Sharee Negron RD Unavailable Kakyay Duarte DRY PRESS OPERATOR Primary Care Provider [phone] Christiane Rodríguez MD Unavailable [phone] Luis A Escobedo MD Unavailable [phone] Chely FernandezC Unavailable [phone] Jing Cadena MEDICAL ESTHETICIAN POWER TOOL REPAIR TECHNICIAN Unavailable [phone] Radha Lopez [facility] Unavailable [phone] Luis A Escobedo MD Unavailable [phone] Geri Loza-C Unavailable [phone] Reason for Visit * Reason Onset Date Comments Prior Auth - Medication 09/03/2022 Orlistat -PA DENIED Encounter Details Date Type Department Care Team (Late st Contact Info) Description 09/03/2022 Telephone [facility] [address] 4th [place] [address] Geri Loza PA-C [address] [place] [address] Prior Auth - Medication (Orlistat-PA DENIED ) Social History Tobacco Use Types Packs/Day Years [...] encounter Miscellaneous Notes * Telephone Encounter - Terrance West - 09/09/2022 9:21 AM CDT Images from the original note were not included. PRIOR AUTHORIZATION DENIED Medication: Orlistat-PA DENIED Denial Date: 09/08/2022 Denial Rational: Insurance states that patient must tried/failed Contrave, Saxenda, Wegovy. Appeal Information: * Telephone Encounter - Terrance West - 09/08/2022 10:24 AM CDT Images from the original note were not included. Central Prior Authorization Team PA Initiation Medication: Orlistat Insurance Company: [employer] - Pharmacy Filling the Rx: [id number] - [place], [place] - [address] Filling Pharmacy Filling Pharmacy Fax: Start Date: 09/08/2022 * Telephone Encounter - Angélica Milligan - 09/03/2022 9:15 AM CDT Prior Authorization Retail Medication Request Medication/Dose: ICD code (if different than what is on RX): Class 3 severe obesity with serious comorbidity and body mass index (BMI) of 45.0 to 49.9 in adult, unspecified obesity type (H) [E66.01, Z68.42] Previously Tried and Failed: Weight loss surgery, history of diet and exercise, Rationale: Overweight onset through 3 pregnancies and was weight stable at 250lbs for many years. Weight gain was very gradual. Decided to complete bariatric surgery after years of consider for help with resistant weight loss. ?? Gastric sleeve was completed 08/09/[address] [facility] [address] Barillas. Starting weight 338lb, BMI 56.25. She felt that instantly did not see expected weight loss results. Per chart review had lost 8lbsby 3 months post op and has followed up with [facility] since. She has lost 38lbs since surgery, andhas been able maintain weight loss of 305lbs for many years. However, continues to feel that is inadequet weight loss and wanted to discuss a conversion to RYGB today. Insurance Name: Insurance ID: Pharmacy Information (if different than what is on RX) Name: [id number] - [facility] [address] * Telephone Encounter - Rowena Small - 09/03/2022 8:44 AM CDT Reason for Call: Prior Auth Detailed comments: Pt states [facility] said a PA is required for orlistat. Please send myc msg to pt once PA is back. Phone Number Patient can be reached at: Cell number on file: Telephone Information: Best Time: any Can we leave a detailed message on this number? YES Call taken on 09/03/2022 at 8:44 AM by Rowena Small documented in this encounter Plan of Treatment Upcoming Encounters Date Type Department Care Team (Late st Contact Info) Description 06/24/2023 12:30 PM CDT Virtual Visit [facility] Weight Management [address] [phone] Geri Loza PA-C [address] [place] [address] [phone] 06/24/2023 1:00 PM CDT Virtual Visit [facility] Weight Management [address] [phone] Sharee Negron, ÁNGEL [address] [place] [address] 753215 documented as of this encounter Visit Diagnoses Not on filedocumented in this encounter Care Teams Bulwark Carpenter Relationship Specialty Start Date End Date Clinic, [facility] [address] [place], [place] 189997 PCP - General 08/19/22 10/14/22 Kaykay Duaret, GUILLERMO [address] [place] [address] PCP - General 10/15/22 Roderick Morelos MD [address] [place] [address] Cardiovascular Disease 02/03/22 Magno Wood MD [address] [place] [address] Otolaryngology 02/21/22 Sophie Ocasio, Nick [address] [place] [address] Claim Rep Audiology 02/21/22 Henny Rosales MEDICAL ESTHETICIAN SVP PROGRAMMATIC TV [address] [place] [phone] Assigned Heart and Vascular Provider 08/09/[address] [place] [address] 635285 Registered Dietitian Dietitian, Registered 09/02/22 Christiane Rodríguez MD 420 [facility] [address] [place], [place] 270265 Otolaryngology 11/12/22 Luis A Escobedo MD [address] [phone] Assigned Surgical Provider 11/01/22 11/28/22 Chely Fernandez PA-C [address] [place] [address] [phone] Assigned Surgical Provider 11/29/22 02/06/23 Jing Cadena, MEDICAL ESTHETICIAN POWER TOOL REPAIR TECHNICIAN 420 [facility] 450 [place], [place] 890705 Clinical Nurse Specialist Anesthesiology 01/15/23 Radha Lopez, [facility] [address] [place] [address] [phone] Pharmacist Pharmacist 01/16/23 Luis A Escobedo MD [address] [place] [address] Assigned Surgical Provider 02/07/23 04/15/23 Geri Loza PA-C [address] [place] [address] Assigned Surgical Provider 04/16/23 documented as of this encounter
--- OUTSIDE RECORDS SUMMARY | 2023-05-09 18:25 | XMS_ITS | Encounter Summary ---
Author Name Unknown Organization [facility] Address [address] [place] [address] Care Team Providers Care Distribution Transformer Assembler Name Role Phone Roderick Morelos MD Unavailable [phone] Magno Wood MD Unavailable [phone] Sophie Ocasio Unavailable [phone] Henny Rosales SAFETY AND SECURITY OFFICER LOCKSTITCH WAISTBAND SETTER Unavailable [phone] [facility] Primary Care Pr ovider Sharee Negron RD Unavailable Kaykay Duarte FOLDER SEAMER Primary Care Provider Christiane Rodríguez MD Unavailable [phone] Luis A Escobedo MD Unavailable [phone] Chely Fernandez PA-C Unavailable [phone] Jing Cadena SAFETY AND SECURITY OFFICER ABSTRACT MAKER Unavailable [phone] Radha Lopez [facility] Unavailable [phone] Luis A Escobedo MD Unavailable [phone] Geri Loza PA-C Unavailable [phone] Encounter Details Date Type Department Care Team (Late st Contact Info) Description 09/15/2022 MyC Medical Advice [facility] Gastroenterology Clinic [address] [phone] Maria Guadalupe Wolfe Social History Tobacco Use Types Packs/Day Years [...] [facility] [address] [phone] Geri Loza PA-C [address] [place] [address] [phone] 06/24/2023 1:00 PM CDT Virtual Visit [facility] Weight Management [address] [phone] Sharee Negron, RD [address] [place] [address] 338015 documented as of this encounter Visit Diagnoses Not on filedocumented in this encounter Care Teams Distribution Transformer Assembler Relationship Specialty Start [place] [address] [place], [place] 018517 PCP - General 08/19/22 10/14/22 Kaykay Duarte FOLDER SEAMER [address] [place] [address] [place] [id number] PCP - General 10/15/22 Roderick Morelos MD [address] [place] [address] Cardiovascular Disease 02/03/22 Magno Wood MD [address] [place] [address] Otolaryngology 02/21/22 Sophie Ocasio AuD [address] [place] [address] 887505 Tank Builder Supervisor Audiology 02/21/22 Henny Rosales APRN LOCKSTITCH WAISTBAND SETTER [address] [place] [phone] Assigned Heart and Vascular Provider 08/09/[address] [place] [address] Registered Dietitian Dietitian, Registered 09/02/22 Christiane Rodríguez MD [address] [place] [address] 434195 Otolaryngology 11/12/22 Luis A Escobedo MD [address] [place] [address] 186045 Assigned Surgical Provider 11/01/22 11/28/22 Chely Fernandez PA-C [address] [place] [address] Assigned Surgical Provider 11/29/22 02/06/23 Jing Cadena SAFETY AND SECURITY OFFICER ABSTRACT MAKER [address] 259655 Clinical Nurse Specialist Anesthesiology 01/15/23 Radha Lopez [facility] 909 [place], [place] 357505 Pharmacist Pharmacist 01/16/23 Luis A Escobedo MD [address] 243765 Assigned Surgical Provider 02/07/23 04/15/23 Geri Loza PA-C [address] [place] [address] [phone] Assigned Surgical Provider 04/16/23 documented as of this encounter
--- OUTSIDE RECORDS SUMMARY | 2023-05-09 18:25 | XMS_ITS | Encounter Summary ---
Author Name Unknown Organization [place] Address [address] [place] [address] 23232 Care Team Providers Care Marketing Research Intern Name Role Phone Roderick Morelos MD Unavailable [phone] Magno Wood MD Unavailable [phone] Sophie Ocasio Unavailable [phone] Henny Rosales HOSPICE CASE MANAGER DEICER FINISHER Unavailable [phone] [facility] Primary Care Pr ovider Sharee Negron RD Unavailable Kaykay Duarte NUCLEAR ENGINEERING TECHNICIAN Primary Care Provider Christiane Rodríguez MD Unavailable [phone] Luis A Escobedo MD Unavailable +[phone] Chely Fernandez PA-C Unavailable +[phone] Jing Cadena HOSPICE CASE MANAGER NEWSSTAND VENDOR Unavailable [phone] Radha Lopez [facility] Unavailable [phone] Luis A Escobedo MD Unavailable +[phone] Geri Loza PA-C Unavailable +[phone] Encounter Details Date Type Department Care Team (Late st Contact Info) Description 09/02/2022 MyC Medical Advice [facility] Weight Management [address] [phone] Kang Griffiths Social History Tobacco Use Types [...] Description 06/24/2023 12:30 PM CDT Virtual Visit [facility] Weight Management [address] [phone] Geri Loza PA-C [address] [place] [address] 016565 06/24/2023 1:00 PM CDT Virtual Visit [facility] Weight Management [address] [phone] Sharee Negron, RD [address] [place] [address] 759215 documented as of this encounter Visit Diagnoses Not on filedocumented in this encounter Care Teams Marketing Research Intern Relationship Specialty Start [place] [address] [place] [address] PCP - General 08/19/22 10/14/22 Kaykay Duarte NP [address] [place] [address] [place] [address] PCP - General 10/15/22 Roderick Morelos MD [address] [place] [address] Cardiovascular Disease 02/03/22 Magno Wood MD [address] [place] [address] 062025 Otolaryngology 02/21/22 Sophie Ocasio AuD [address] [place] [address]455 [place] [facility] 02/21/22 Henny Rosaels APRN DEICER FINISHER [address] [place] [phone] Assigned Heart and Vascular Provider 08/09/[address] [place] [address] 55455 Registered Dietitian Dietitian, Registered 09/02/22 Christiane Rodríguez MD [address] [place] [address] 474585 Otolaryngology 11/12/22 Luis A Escobedo MD [address] [place] [address] 55455 Assigned Surgical Provider 11/01/22 11/28/22 Chely Fernandez PA-C [address] [place] [address] 55455 Assigned Surgical Provider 11/29/22 02/06/23 Jing Cadena APRN CNS 420 [facility] 450 [place], [place] 050775 Clinical Nurse Specialist Anesthesiology 01/15/23 Radha Lopez, [facility] [address] [place] [address] 086255 Pharmacist Pharmacist 01/16/23 Luis A Escobedo MD 420 [facility] 195 [place], [place] 966505 Assigned Surgical Provider 02/07/23 04/15/23 Geri Loza PA-C [address] [place] [address] 815555 Assigned Surgical Provider 04/16/23 documented as of this encounter
--- OUTSIDE RECORDS SUMMARY | 2023-05-09 18:25 | XMS_ITS | Encounter Summary ---
Author Name Unknown Organization [place] Address [address] [place] [address] 63951 Care Team Providers Care Project Manager/Team Coach Name Role Phone Roderick Morelos MD Unavailable [phone] Magno Wood MD Unavailable [phone] Sophie Ocasio AuD Unavailable [phone] Henny Rosales APRN LABORER POULTRY HATCHERY Unavailable [phone] [facility] Pr ovider Sharee Negron RD Unavailable Encounter Details Date Type Department Care Team (Late st Contact Info) Description 09/08/2022 Telephone [facility] [address] [place] [address] Geri Loza PA-C [address] [place] [address] 296385 Social History Tobacco Use Types Packs/Day Years [...] * Telephone Encounter - Jeff Linares - 09/08/2022 2:33 PM CDT Medication Question or Refill Contacts Type Contact Phone/Fax 09/08/2022 02:33 PM CDT Phone (Incoming) Billie Connolly (Self) [phone] (M) What medication are you calling about (include dose and sig)?: [id number] Preferred Pharmacy: [id number] [place] [address] Controlled Substance Agreement on file: CSA -- Patient Level: CSA: None found at the patient level. Who prescribed the medication?: Dago Do you have any questions or concerns? Yes: Insurance declined cvg. Please call with options Could we send this information to you [facility] or would you prefer to receive a phone call?: Patient would prefer a phone call Okay to leave a detailed message?: Yes at Cell number on file: Telephone Information: documented in this encounter Plan of Treatment Upcoming Encounters Date Type Department Care Team (Late st Contact Info) Description 06/24/2023 12:30 PM CDT Virtual Visit [facility] [address] [phone] Geri Loza PA-C [address] [place] [address] 085805 06/24/2023 1:00 PM CDT Virtual Visit [facility] [address] [phone] [place] [address] 73302 documented as of this encounter Visit Diagnoses Not on filedocumented in this encounter Care Teams Project Manager/Team Coach Relationship Specialty Start Date End Date Clinic, [place] [address] [place] [address] PCP - General 08/19/22 10/14/22 Roderick Morelos MD [address] [place] 180975 Cardiovascular Disease 02/03/22 Magno Wood MD [address] [place] [address] 396 [place] [address] Otolaryngology 02/21/22 Sophie Ocasio AuD [address] [place] [address] 456645 Hotel Manager Audiology 02/21/22 Henny Rosales APRN LABORER POULTRY HATCHERY [address] [place] [phone] Assigned Heart and Vascular Provider 08/09/[address] [place] [address] 234285 Registered Dietitian Dietitian, Registered 09/02/22 documented as of this encounter
--- OUTSIDE RECORDS SUMMARY | 2023-05-09 18:25 | XMS_ITS | Encounter Summary ---
Author Name Unknown Organization [place] Address [address] [place] [address] 92520 Care Team Providers Care Release Engineer Name Role Phone Roderick Morelos MD Unavailable [phone] Magno Wood MD Unavailable [phone] Sophie Ocasio Unavailable [phone] Henny Rosales OIL FIELD ROUSTABOUT GRINDER OPERATOR EXTERNAL TOOL Unavailable [phone] [facility] Primary Care Pr ovider Sharee Negron RD Unavailable Kaykay Duarte COMPONENT INSPECTOR Primary Care Provider [phone] Christiane Rodríguez MD Unavailable [phone] Luis A Escobedo MD Unavailable [phone] Chely Fernandez PA-C Unavailable [phone] Jing Cadena OIL FIELD ROUSTABOUT PROJECT COACH Unavailable [phone] Radha Lopez [facility] Unavailable [phone] Luis A Escobedo MD Unavailable [phone] Geri Loza PA-C Unavailable [phone] Encounter Details Date Type Department Care Team (Late st Contact Info) Description 09/09/2022 Telephone [facility] Management [facility] [address] [phone] Geri Loza PA-C [address] [place] [address] [phone] Social History Tobacco Use Types Packs/Day Years [...] * Telephone Encounter - Tamera Bhardwaj - 09/09/2022 10:52 AM CDT Patient calling regarding the denial of Olistat. Prescription would be $600 out of pocket & is not affordable for the patient. She would like to know what other options/alternatives she has. Patient stated Geri Gaytan had suggested Marquez. Please advise. [phone] okay to leave or send MyChart, patient isn't always able to answer when she's working documented in this encounter Plan of Treatment Upcoming Encounters Date Type Department Care Team (Late st Contact Info) Description 06/24/2023 12:30 PM CDT Virtual Visit [facility] Weight Management Clinic [address] [phone] Geri Loza PA-C [address] [place] [address] 649145 06/24/2023 1:00 PM CDT Virtual Visit [facility] Weight Management [address] [phone] Sharee Negron, RD [address] [place] [address] 63937 documented as of this encounter Visit Diagnoses Not on filedocumented in this encounter Care Teams Release Engineer Relationship Specialty Start [place] [address] [place] [address] PCP - General 08/19/22 10/14/22 Kaykay Duarte, COMPONENT INSPECTOR [address] [facility] [place] [address] PCP - General 10/15/22 Roderick Morelos MD [address] [place] [address] Cardiovascular Disease 02/03/22 Magno Wood MD [address] [place] [address] 43806 Otolaryngology 02/21/22 Sophie Ocasio AuD [address] [place] [address] 895795 Vocational Evaluator Audiology 02/21/22 Henny Rosales, OIL FIELD ROUSTABOUT GRINDER OPERATOR EXTERNAL TOOL [address] [place] [phone] Assigned Heart and Vascular Provider 08/09/[address] [place] [address] 215595 Registered Dietitian Dietitian, Registered 09/02/22 Christiane Rodríguez MD [address] [place] [address] 39369 Otolaryngology 11/12/22 Luis A Escobedo MD [address] [address] Assigned Surgical Provider 11/01/22 11/28/22 Chely Fernandez PA-C [address] [place] [address] 27031 Assigned Surgical Provider 11/29/22 02/06/23 Jing Cadena, OIL FIELD ROUSTABOUT PROJECT COACH [address] [place] [address] 06205 Clinical Nurse Specialist Anesthesiology 01/15/23 Radha Lopez, [facility] [address] [place] [address] 36604 Pharmacist Pharmacist 01/16/23 Luis A Escobedo MD [address] [place] [address] 85170 Assigned Surgical Provider 02/07/23 04/15/23 Geri Loza PA-C [address] [place] [address] 73716 Assigned Surgical Provider 04/16/23 documented as of this encounter
--- OUTSIDE RECORDS SUMMARY | 2023-05-09 18:25 | XMS_ITS | Encounter Summary ---
Author Name Unknown Organization [place] Address [address] [place] [address] 97211 Care Team Providers Care Apartment Assistant Manager Name Role Phone Roderick Morelos MD Unavailable [phone] Magno Wood MD Unavailable [phone] Sophie Ocasio AuD Unavailable [phone] Henny Rosales FRONT OFFICE ASSOCIATE LEARNING DESIGN SPECIALIST Unavailable [phone] [facility] Primary Care Pr ovider Sharee Negron RD Unavailable Kaykay Duarte CHANNELER RUNNER Primary Care Provider Christiane Rodríguez MD Unavailable [phone] Luis A Escobedo MD Unavailable [phone] Chely Fernandez PA-C Unavailable [phone] Jing Cadena FRONT OFFICE ASSOCIATE ELECTROLYTIC DE SCALER Unavailable [phone] Radha Lopez [facility] Unavailable [phone] Luis A Escobedo MD Unavailable [phone] Encounter Details Date Type Department Care Team (Late st Contact Info) Description 09/04/2022 Telephone [facility] Weight Management [place] [address]69 [facility] 4th [place] [address] Geri Loza PA-C 9[address] [place] [address] Social History Tobacco Use Types Packs/Day Years [...] Telephone Encounter - Terrance West - 09/09/2022 9:25 AM CDT PA has been initiated for requested medication. See Encounter from 09/03/2022 for status/outcome. * Telephone Encounter - Shari Esteban - 09/04/2022 1:27 PM CDT General Call Contacts Type Contact Phone/Fax 09/04/2022 01:27 PM CDT Phone (Incoming) Billie Connolly (Self) [phone] (M) Reason for Call: Prior Auth questions What are your questions or concerns: Pt states her ins has not received pa from clinic yet Could we [facility] this [facility] you [facility] or would you prefer to receive a phone call?: Patient would prefer a phone call Okay to leave a detailed message?: Yes at Cell number on file: Telephone Information: documented in this encounter Plan of Treatment Upcoming Encounters Date Type Department Care Team (Late st Contact Info) Description 06/24/2023 12:30 PM CDT Virtual Visit [facility] [address] [phone] Geri Loza PA-C [address] [place] [address] 478045 06/24/2023 1:00 PM CDT Virtual Visit [facility] [address] [phone] Sharee Negron, RD [address] [place] [address] [phone] documented as of this encounter Visit Diagnoses Not on filedocumented in this encounter Care Teams Apartment Assistant Manager Relationship Specialty Start Date End Date Clinic, [place] [place] [address] [place] [address] PCP - General 08/19/22 10/14/22 Kaykay Duarte NP [address] [place] [address] [id number] PCP - General 10/15/22 Roderick Morelos MD [address] [place], [place] 962555 Cardiovascular Disease 02/03/22 Magno Wood MD [address] [place] [address] 746035 Otolaryngology 02/21/22 Sophie Ocasio AuD [address] [place] [address] [phone] Programming Specialist Audiology 02/21/22 Henny Rosales APRN LEARNING DESIGN SPECIALIST [address] [place] [phone] Assigned Heart and Vascular Provider 08/09/[address] [place] [address] 353175 Registered Dietitian Dietitian, Registered 09/02/22 Christiane Rodríguez MD [address] [place] [address] 396 [place] [address] Otolaryngology 11/12/22 Luis A Escobedo MD [address] [place] [address] [phone] Assigned Surgical Provider 11/01/22 11/28/22 Chely Fernandez PA-C [address] [place] [address] [phone] Assigned Surgical Provider 11/29/22 02/06/23 Jing Cadena APRN ELECTROLYTIC DE SCALER [address] [place] [address] 450 [place], [place] 357715 Clinical Nurse Specialist Anesthesiology 01/15/23 Radha Lopez [facility] [address] [place] [address] [phone] Pharmacist Pharmacist 01/16/23 Luis A Escobedo MD [address] [place] [address] 195 [place], [place] 882945 Assigned Surgical Provider 02/07/23 04/15/23 documented as of this encounter
--- OUTSIDE RECORDS SUMMARY | 2023-05-09 18:25 | XMS_ITS | Encounter Summary ---
Author Name Unknown Organization [place] Address [facility] [place] [address] Care Team Providers Care Billing Supervisor Name Role Phone Roderick Morelos MD Unavailable [phone] Magno Wood MD Unavailable [phone] Sophie Ocasio AuD Unavailable [phone] Henny Rosales RAYON CONER COPY LATHE TENDER Unavailable [phone] [facility] Primary Care Pr ovider Sharee Negron RD Unavailable Kaykay Duarte CHILDREN'S MINISTER Primary Care Provider [phone] Christiane Rodríguez MD Unavailable [phone] Luis A Escobedo MD Unavailable [phone] Encounter Details Date Type Department Care Team ([facility] st Contact Info) Description 09/24/2022 Medical Correspondence [facility] Mgmt [facility] [address] [place] [address] Outside, Provider Social History Tobacco Use Types Packs/Day Years [...] 12:30 PM CDT Virtual Visit [facility] Weight Management [address] [phone] Geri Loza PA-C [address] [place] [address] [phone] 06/24/2023 1:00 PM CDT Virtual Visit [facility] Weight Management [address] [phone] Sharee Negron, RD [address] [place] [address] 867155 documented as of this encounter Visit Diagnoses Not on filedocumented in this encounter Care Teams Billing Supervisor Relationship Specialty Start Date End Date Clinic, [place]via [place] [address] [place], [place] 854147 PCP - General 08/19/22 10/14/22 Kaykay Duarte NP [address] [place] [address] [place] 198377 PCP - General 10/15/22 Roderick Morelos MD [address] [place] [address] Cardiovascular Disease 02/03/22 Magno Wood MD [address] [place] [address] 45[address] Otolaryngology 02/21/22 Sophie Ocasio AuD [address] [place] [address] 98480 Management Psychologist Audiology 02/21/22 Henny Rosales APRN COPY LATHE TENDER [address] [place] [phone] Assigned Heart and Vascular Provider 08/09/[address] [place] [address] 80022 Registered Dietitian Dietitian, Registered 09/02/22 Christiane Rodríguez MD [address] [place] [address] 55061 Otolaryngology 11/12/22 Luis A Escobedo MD [address] [place] [address] 69612 Assigned Surgical Provider 11/01/22 11/28/22 documented as of this encounter
--- OUTSIDE RECORDS SUMMARY | 2023-05-09 18:25 | XMS_ITS | Encounter Summary ---
Author Name Unknown Organization [place] Address [address] [place] [address] 6[address] Care Team Providers Care Senior Executive Assistant Name Role Phone Roderick Morelos MD Unavailable [phone] Magno Wood MD Unavailable [phone] Sophie Ocasio Unavailable [phone] Henny Rosales COLLEGE ADMINISTRATOR BOAT PULLER Unavailable [phone] [facility] Primary Care Pr ovider Sharee Negron RD Unavailable Kaykay Duarte CASEWORKER Primary Care Provider Christiane Rodríguez MD Unavailable [phone] Luis A Escobedo MD Unavailable [phone] Chely Fernandez PA-C Unavailable [phone] Jing Cadena COLLEGE ADMINISTRATOR UNDERTAKER ASSISTANT Unavailable [phone] Radha Lopez [facility] Unavailable [phone] Luis A Escobedo MD Unavailable [phone] Encounter Details Date Type Department Care Team (Late st Contact Info) Description 09/03/2022 [facility] General Surgery [place] 131649 [facility] [address] [place] [address] [phone] Luis A Escobedo MD 420 [facility] 195 [place], [place] 267825 Social History Tobacco Use Types Packs/Day Years [...] * Telephone Encounter - Shari Esteban - 09/03/2022 9:58 AM CDT Left VM 09/03 Please schedule for bariatric meet and greet for possible conversion or revision with Dr. Escobedo in6 months. documented in this encounter Plan of Treatment Upcoming Encounters Date Type Department Care Team (Late st Contact Info) Description 06/24/2023 12:30 PM CDT Virtual Visit [facility] Weight Management Clinic [address] [phone] Geri Loza PA-C [address] [place] [address] 404645 06/24/2023 1:00 PM CDT Virtual Visit [facility] Management Clinic [address] [phone] Sharee Negron, RD [address] [place] [address] 286515 documented as of this encounter Visit Diagnoses Not on filedocumented in this encounter Care Teams Senior Executive Assistant Relationship Specialty Start [place] [address] [place] [address] PCP - General 08/19/22 10/14/22 [place] [address] [place] [address] PCP - General 10/15/22 Roderick Morelos MD [address] [place] [address] Cardiovascular Disease 02/03/22 Magno Wood MD [address] [place] [address] 964215 Otolaryngology 02/21/22 Sophie Ocasio AuD [address] [place] [address] 970245 Woven Wood Shade Assembler Audiology 02/21/22 Henny Rosales APRN BOAT PULLER [address] [place] [phone] Assigned Heart and Vascular Provider 08/09/[address] [place] [address] [phone] Registered Dietitian Dietitian, Registered 09/02/22 Christiane Rodríguez MD [address] [place] [address] 581265 Otolaryngology 11/12/22 Luis A Escobedo MD [address] [place] [address] 25964 Assigned Surgical Provider 11/01/22 11/28/22 Chely Fernandez PA-C [address] [place] [address] 19401 Assigned Surgical Provider 11/29/22 02/06/23 Jing Cadena, COLLEGE ADMINISTRATOR UNDERTAKER ASSISTANT [address] [place] [address] 655155 Clinical Nurse Specialist Anesthesiology 01/15/23 Radha Lopez, [facility] [address] [place] [address] [phone] Pharmacist Pharmacist 01/16/23 Luis A Escobedo MD [address] [place] [address] 90197 Assigned Surgical Provider 02/07/23 04/15/23 documented as of this encounter
--- OUTSIDE RECORDS SUMMARY | 2023-05-09 18:25 | XMS_ITS | Encounter Summary ---
Author Name Unknown Organization [place] Address [address] [place] [address] Care Team Providers Care Adjunct Political Science Instructor Name Role Phone Roderick Morelos MD Unavailable [phone] Magno Wood MD Unavailable [phone] Sophie Ocasio Unavailable [phone] Henny Rosales PLY BANDER REMANUFACTURING TECHNICIAN Unavailable [phone] [facility] Primary Care Pr ovider Sharee Negron RD Unavailable Kaykay Duarte MANAGER CLINICAL RESEARCH Primary Care Provider Christiane Rodríguez MD Unavailable [phone] Luis A Escobedo MD Unavailable [phone] Chely Fernandez PA-C Unavailable [phone] Jing Cadena PLY BANDER VENDING MACHINE ASSEMBLER Unavailable [phone] Radha Lopez [facility] Unavailable [phone] Luis A Escobedo MD Unavailable [phone] Geri Loza PA-C Unavailable [phone] Encounter Details Date Type Department Care Team (Late st Contact Info) Description 09/02/2022 MyC Medical Advice [facility] Weight Management [address] [phone] Geri Loza PA-C [address] [place] [address]35 Social History Tobacco Use Types Packs/Day Years [...] Description 06/24/2023 12:30 PM CDT Virtual Visit [facility] Weight Management [address] [phone] Geri Loza PA-C [address] [place] [address] 28414 06/24/2023 1:00 PM CDT Virtual Visit [facility] Weight Management [address] [phone] Sharee Negron, RD [address] [place] [address] 46[address] documented as of this encounter Visit Diagnoses Not on filedocumented in this encounter Care Teams Adjunct Political Science Instructor Relationship Specialty Start Date End Date Clinic, [facility]via [place] [address] [place] [address] PCP - General 08/19/22 10/14/22 Kaykay Duarte, MANAGER CLINICAL RESEARCH [address] [place] [address] PCP - General 10/15/22 Roderick Morelos MD [address] [place], [place] 970685 Cardiovascular Disease 02/03/22 Magno Wood MD [address] [place] [address] 936205 Otolaryngology 02/21/22 Sophie Ocasio AuD [address] [place] [address] 403865 Nurse Clinical Audiology 02/21/22 Henny Rosales, PLY BANDER REMANUFACTURING TECHNICIAN [address] [place] [phone] Assigned Heart and Vascular Provider 08/09/[address] [place] [address] 123125 Registered Dietitian Dietitian, Registered 09/02/22 Christiane Rodríguez MD [address] [place] [address] 496295 Otolaryngology 11/12/22 Luis A Escobedo MD [address] [place] [address] 646055 Assigned Surgical Provider 11/01/22 11/28/22 Chely Fernandez PA-C [address] [place], [place] 310375 Assigned Surgical Provider 11/29/22 02/06/23 Jing Cadena, PLY BANDER VENDING MACHINE ASSEMBLER 420 [facility] 450 [place], [place] 621425 Clinical Nurse Specialist Anesthesiology 01/15/23 Radha Lopez, [facility] 9 [place], [place] 088545 Pharmacist Pharmacist 01/16/23 Luis A Escobedo MD 420 [facility] 195 [place], [place] 612265 Assigned Surgical Provider 02/07/23 04/15/23 Geri Loza PA-C [address] [place] [address] 154265 Assigned Surgical Provider 04/16/23 documented as of this encounter
--- OUTSIDE RECORDS SUMMARY | 2023-05-09 18:25 | XMS_ITS | Encounter Summary ---
Author Name Unknown Organization [place] Address [address] [place] [address] Care Team Providers Care Certified Diabetes Educator Name Role Phone Roderick Morelos MD Unavailable [phone] Magno Wood MD Unavailable [phone] Sophie Ocasio Unavailable [phone] Henny Rosales APRN CHALK EXTRUDING MACHINE OPERATOR Unavailable [phone] [facility] [place] [facility] Pr ovider Sharee Negron RD Unavailable Reason for Visit * Reason Onset Date Comments Appointment 09/10/2022 Encounter Details Date Type Department Care Team (Late st Contact Info) Description 09/10/2022 Telephone [facility] [address] [place] [address] Sharee Negron, RD 9 [place], [place] 433535 Appointment Social History Tobacco Use Types Packs/Day [...] encounter Miscellaneous Notes * Telephone Encounter - Heena Noriega - 09/10/2022 10:39 AM CDT LVM and sent mychart to schedule monthly follow up appointments with Sharee Negron RD. Needs appt in September, October, Nov and December if she is open to it due to Sharee's schedule filling fast. documented in this encounter Plan of Treatment Upcoming Encounters Date Type Department Care Team (Late st Contact Info) Description 06/24/2023 12:30 PM CDT Virtual Visit [facility] [address] [phone] Geri Loza PA-C [address] [place] [address] 447595 06/24/2023 1:00 PM CDT Virtual Visit [facility] [address] [phone] [place] [address] 026005 documented as of this encounter Visit Diagnoses Not on filedocumented in this encounter Care Teams Certified Diabetes Educator Relationship Specialty Start Date End Date Clinic, [address] [address] PCP - General 08/19/22 10/14/22 Roderick Morelos MD [address] [place] [address] Cardiovascular Disease 02/03/22 Magno Wood MD [address] [place] [address] 889885 Otolaryngology 02/21/22 Sophie Ocasio AuD 9 [place], [place] 703545 Biosecurity Officer Audiology 02/21/22 Henny Rosales APRN CHALK EXTRUDING MACHINE OPERATOR [address] [place] [address] Assigned Heart and Vascular Provider 08/09/[address] [place], [place] 207815 Registered Dietitian Dietitian, Registered 09/02/22 documented as of this encounter
--- OUTSIDE RECORDS SUMMARY | 2023-05-09 18:25 | XMS_ITS | Encounter Summary ---
Author Name Unknown Organization [place] Address [address] [place] [address]. [place] [address] Care Team Providers Care Airworthiness Inspector Name Role Phone Roderick Morelos MD Unavailable [phone] Magno Wood MD Unavailable [phone] Sophie Ocasio AuD Unavailable [phone] Henny Rosales APRN PATIENT TRANSPORTER Unavailable [phone] [facility] Pr ovider Sharee Negron RD Unavailable Reason for Visit * Reason Comments Orders labs Encounter Details Date Type Department Care Team (Late st Contact Info) Description 09/10/2022 Documentation Only [facility] [address] 4th [place] [address] Angélica Milligan Orders (labs) Social History Tobacco Use Types Packs/Day Years [...] on file documented as of this encounter Progress Notes * Angélica Milligan - 09/10/2022 9:44 AM CDT Faxed lab orders via Present[facility] to [facility] at [phone]. documented in this encounter Plan of Treatment Upcoming Encounters Date Type Department Care Team (Late st Contact Info) Description 06/24/2023 12:30 PM CDT Virtual Visit [facility] [address] [phone] Geri Loza PA-C [address] [place] [address] 728225 06/24/2023 1:00 PM CDT Virtual Visit [facility] [address] [phone] Sharee Negron, ÁNGEL [address] [place] [address] 690735 documented as of this encounter Visit Diagnoses Not on filedocumented in this encounter Care Teams Airworthiness Inspector Relationship Specialty Start Date End Date Clinic, [facility] [address] [place] [address] PCP - General 08/19/22 10/14/22 Roderick Morelos MD [address] [place], [place] 428945 Cardiovascular Disease 02/03/22 Magno Wood MD [address] [place] [address] [address] [place], [place] [phone] Otolaryngology 02/21/22 Sophie Ocasio AuD [address] [place] [address] 698885 Blueprint Reproducer Audiology 02/21/22 Henny Rosales APRN PATIENT TRANSPORTER [address] [place] [address] Assigned Heart and Vascular Provider 08/09/[address] 9 [place] [address] Registered Dietitian Dietitian, Registered 09/02/22 documented as of this encounter
--- OUTSIDE RECORDS SUMMARY | 2023-05-09 18:26 | XMS_ITS | Encounter Summary ---
Author Name Unknown Organization [place] Address [address] [place] [address] Care Team Providers Care Quality Assurance Coach Name Role Phone Roderick Morelos MD Unavailable [phone] Magno Wood MD Unavailable [phone] Sophie Ocasio AuD Unavailable [phone] Henny Rosales APRN CREDIT SPECIALIST Unavailable [phone] [facility] [place] [facility] Pr ovider Encounter Details Date Type Department Care Team (Late st Contact Info) Description 08/29/2022 Telephone [facility] [address] 4th [place] [address] Priya Mckinney, RD [address] [place] [address] Social History Tobacco Use Types Packs/Day Years Used Date Smoking Tobacco: Never Smokeless Tobacco: Never Alcohol Use Standard Drinks/Week Comments Yes 0 (1 standard drink = 0.6 oz pur e alcohol) socially PHQ-2 Answer Date Recorded PHQ-2 Score 0 08/15/2022 Sex and Gender Information Value Date Recorded [...] * Telephone Encounter - Jeff Linares - 08/29/2022 2:09 PM CDT Images from the original note were not included. 08/29 left for staff Priya Castro RD P [facility] Bariatric Scheduling Registration Pool Cc: Sharee Negron RD [facility], Team is recommending sooner follow-up with dietitian if pt is able. Please reach out to schedule August appt with Sharee or Priya. Thank you, Priya documented in this encounter Plan of Treatment Upcoming Encounters Date Type Department Care Team (Late st Contact Info) Description 06/24/2023 12:30 PM CDT Virtual Visit [facility] [address] [phone] Geri Loza PA-C [address] [place] [address] 270265 06/24/2023 1:00 PM CDT Virtual Visit [facility] [address] [phone] [place] [address] 562515 documented as of this encounter Visit Diagnoses Not on filedocumented in this encounter Care Teams Quality Assurance Coach Relationship Specialty Start Date End Date Clinic, [facility]via [place] [address] [place], [place] 228047 PCP - General 08/19/22 10/14/22 Roderick Morelos MD [address] [place] [id number] Cardiovascular Disease 02/03/22 Magno Wood MD 420 [facility] 396 [place] [address] Otolaryngology 02/21/22 Sophie Ocasio AuD [address] [place] [address] Hydro Excavation Operator Audiology 02/21/22 Henny Rosales APRN CREDIT SPECIALIST [address] [place] [address] Assigned Heart and Vascular Provider 08/09/22 documented as of this encounter
--- OUTSIDE RECORDS SUMMARY | 2023-05-09 18:26 | XMS_ITS | Encounter Summary ---
Author Name Unknown Organization [place] Address [address] [place] [address] Care Team Providers Care Assembler Motor Vehicle Name Role Phone Roderick Morelos MD Unavailable [phone] Magno Wood MD Unavailable [phone] Sophie Ocasio Unavailable [phone] Henny Rosales APRN PRINTMAKER Unavailable [phone] [facility] [place] [facility] Pr ovider Sharee Negron RD Unavailable Reason for Visit * Reason Comments RECHECK Encounter Details Date Type Department Care Team (Latest Contact Info) Description 09/02/2022 8:30 AM CDT Virtual Visit [facility] [address] [place] [address] Sharee Negron, RD [address] [place] [address] Nutritional counseling (Primary Dx); Class 3 severe obesity with serious comorbidity and body mass index (BMI) of 45.0 to 49.9 in adult, unspecified obesity type (H); S/P laparoscopic sleeve gastrectomy; Gastroesophageal reflux disease with esophagitis, unspecified whether [...] - - Weight 137.4 kg (303 lb) 09/02/2022 8:21 AM CDT Height 167.6 cm (5' 6) 09/02/2022 8:21 AM CDT Body Mass Index 48.91 09/02/2022 8:21 AM CDT documented in this encounter Patient Instructions * Patient Instructions* Sharee Negron RD - 09/02/2022 8:30 AM CDT Goals: Relating To Eating: - [...] vitamins/minerals as recommended Supplements after Sleeve Gastrectomy [email or web address] Weight loss prior to surgery: -20 lbs (weight of 285 lbs) LABS Lab have been ordered. Please make an appointment to have them drawn at your convenience. To schedule the Lab Appointment using Trooval: Select Schedule an Appointment Select Lab Only For A couple of questions, select Other For Which locations work for you?, select the location and set up the appointment To schedule by phone call [phone] to schedule a lab only appointment at [facility] lab. Protein Supplements for After Surgery: [...] Clear Protein Drinks: BiPro Premier Protein clear Fzladct2H [facility] Protein 15 Concentrate Bone broth Beneprotein protein powder mixed with 4-6 oz of fluid [id number] After Weight Loss Surgery Why Take Supplements for Life after Weight Loss Surgery https://Open Dynamics/498446.pdf Keeping Up Your Diet after Weight Loss Surgery https://Open Dynamics/889282.pdf Preventing Low Blood Sugar after Weight Loss Surgery https://Open Dynamics/082565.pdf Preventing Dumping Syndrome after Weight Loss Surgery https://Open Dynamics/871301.pdf Follow-Up: [address], Clinic #: [phone] documented in this encounter Progress Notes * Sharee Negron RD - 09/02/2022 8:30 AM CDT Images from the original [...] be resent to: Text to cell phone: [phone] Will anyone else be joining your video visit? No {If patient encounters technical issues they should call [phone] Video-Visit Details Type of service: Video Visit Video Start Time: 8:28 am Video End Time: 9:00 am Originating Location (pt. Location): Home Distant Location (provider location): Offsite (providers home) Platform used for Video Visit: Singspiel During this virtual visit the patient is located in [place], patient verifies this as the location during the entirety of this visit. Nutrition Assessment Reason For Visit: Billie Connolly is a 51 year old female presents today for new re-establish nutrition visit. Pt withhistory of sleeve gast[facility] [facility] [address] [facility] Bar[facility]. Patient referred by Geri [...] lbs, 285 lbs Medications for weight loss: Mouncristianero - has type 2 diabetes Current Vitamins/Minerals: B12 monthly injections Wells with iron Due for yearly neida labs. Orders in. Just had labs done but they did not do all of them. Nutrition History: NKFA Not huge on fish/seafood [...] inch subway or a breakfast sandwich on sami muffin for reference Wakes up ravenous. Portions are smallest at dinner time typically. Eats protein with every meal - mostly chicken. Does have premier protein shakes as well. Fluids: water, water flavorings, 1 cup coffee/day Alcohol: Rare - occ glass of wine but not able to finish Carbonation: None Working on not drinking while eating. Additional information: FT - Chain Hooker View : No data to display. View : No data to display. Nutrition Prescription: Grams Protein: 50-60 (minimum) Amount [...] vitamins/minerals as recommended Supplements after Sleeve Gastrectomy [email or web address] Weight loss prior to surgery: -20 lbs (weight of 285 lbs) LABS ??? Lab have been ordered. Please make an appointment to have them drawn at your convenience. ??? To schedule the Lab Appointment using Trooval: o Select Schedule an Appointment o Select Lab Only o For A couple of questions, select Other o For Which locations work for you?, select the location and set up the appointment ??? To schedule by phone call [phone] to schedule a lab only appointment at any [facility] lab. Protein Supplements for After Surgery: [...] Max (160 calories, 30 gm protein) ?? 5by Core Power (170 calories, 26 gm protein) [...] ?? BiPro ?? Premier Protein clear ?? Qqhmscb5E ?? Kannuu Protein 15 Concentrate ?? Bone broth ?? Beneprotein protein powder mixed with 4-6 oz of fluid ?? Hpzovyic15 After Weight Loss Surgery Why Take Supplements for Life after Weight Loss Surgery https://Open Dynamics/587686.pdf Keeping Up Your Diet after Weight Loss Surgery https://Open Dynamics/954527.pdf Preventing Low Blood Sugar after Weight Loss Surgery https://Open Dynamics/731600.pdf Preventing Dumping Syndrome after Weight Loss Surgery https://Open Dynamics/295624.pdf Follow-Up: 1 month Time spent with patient: 32 minutes. SIVA Matias, RD, LD documented in this encounter Nursing Notes * Daljit Enamorado - 09/02/2022 8:30 AM CDT Is the patient currently in the state of [place]? YES Visit mode:VIDEO If the visit is dropped, the patient can be reconnected by: VIDEO VISIT: Text to cell phone: [phone] Will anyone else be joining the visit? NO How would you like to obtain your AVS? MyChart Are changes needed to the allergy or medication list? NO Reason for visit: RECHECK [facility] Ward on 09/02/2022 at 8:22 AM documented in this encounter Plan of Treatment Upcoming Encounters Date Type Department Care Team (Late st Contact Info) Description 06/24/2023 12:30 PM CDT Virtual Visit [facility] [address] [phone] Geri Loza PA-C [address] [place] [address] 166835 06/24/2023 1:00 PM CDT Virtual Visit [facility] Weight Management [address] [phone] [place] [address] documented as of this encounter Visit Diagnoses Diagnosis Nutritional counseling- Primary Class 3 severe obesity with serious comorbidity and body mass index (BMI) of 45.0 to 49.9 in adult, unspecified obesity type (H) S/P laparoscopic sleeve gastrectomy Gastroesophageal reflux disease with esophagitis, unspecified whether hemorrhage documented in this encounter Care Teams Assembler Motor Vehicle Relationship Specialty Start Date End Date Clinic, Elvia [facility]ent [place] [address] [place] [address] PCP - General 08/19/22 10/14/22 Roderick Morelos MD [address] [place] [address] Cardiovascular Disease 02/03/22 Magno Wood MD [address] [place] [address] Otolaryngology 02/21/22 Sophie Ocasio AuD [address] [place] [address] 746745 Care Giver Audiology 02/21/22 Henny Rosales APRN PRINTMAKER [address] [place] [phone] Assigned Heart and Vascular Provider 08/09/[address] [place] [address] 399315 Registered Dietitian Dietitian, Registered 09/02/22 documented as of this encounter
--- OUTSIDE RECORDS SUMMARY | 2023-05-09 18:26 | XMS_ITS | Encounter Summary ---
Author Name Unknown Organization [place] Address [address] [place] [address] Care Team Providers Care Rug Cutter Helper Name Role Phone Roderick Morelos MD Unavailable [phone] Magno Wood MD Unavailable [phone] Sophie Ocasio AuD Unavailable [phone] Henny Rosales APRN GENERAL TELLER Unavailable [phone] [facility] [place] [facility] Pr ovider Encounter Details Date Type Department Care Team (Late st Contact Info) Description 08/21/2022 Telephone [facility] General Surgery [address] 4th [place] [address] Edgar Rothman Social History Tobacco [...] * Telephone Encounter - Edgar Rothman - 08/21/2022 9:14 AM CDT Called [facility] in [place] to request UGI study done 07/22/22 be pushed to the [facility], will push today. Called [facility] to request recent CT abdomen/pelvis done 06/21/22 be pushed to the [facility], will push today. documented in this encounter Plan of Treatment Upcoming Encounters Date Type Department Care Team (Late st Contact Info) Description 06/24/2023 12:30 PM CDT Virtual Visit [facility] [address] [phone] Geri Loza PA-C [address] [place] [address] [phone] 06/24/2023 1:00 PM CDT Virtual Visit [facility] [address] [address] Sharee Negron, RD [address] [place] [address] 386855 documented as of this encounter Visit Diagnoses Not on filedocumented in this encounter Care Teams Rug Cutter Helper Relationship Specialty Start Date End Date Clinic, [facility] [address] [place], [place] 512447 PCP - General 08/19/22 10/14/22 Roderick Morelos MD [address] [place] 7[address]75 Cardiovascular Disease 02/03/22 Magno Wood MD 420 [facility] 396 [place], [place] [phone] Otolaryngology 02/21/22 Sophie Ocasio AuD 9 [place] [address] Podiatry Assistant Audiology 02/21/22 Henny Rosales APRN GENERAL TELLER [address] [place] [address] Assigned Heart and Vascular Provider 08/09/22 documented as of this encounter
--- OUTSIDE RECORDS SUMMARY | 2023-05-09 18:26 | XMS_ITS | Encounter Summary ---
Author Name Unknown Organization [place] Address [address] [place] [address] Care Team Providers Care Telephone Assembler Name Role Phone Ernestina Martini Primary Care Provider Unavailable Roderick Morelos MD Unavailable [phone] Magno Wood MD Unavailable [phone] Sophie Ocasio Unavailable [phone] Henny Rosales APRN KNURLING MACHINE OPERATOR Unavailable Encounter Details Date Type Department Care Team (Late st Contact Info) Description 08/16/2022 Telephone [facility] [address] [place] [address] Geri Loza PA-C [address] [place] [address] Social History Tobacco Use Types Packs/Day [...] 06/24/2023 12:30 PM CDT Virtual Visit [facility] Weight Management [address] [phone] Geri Loza PA-C [address] [place] [address] 905005 06/24/2023 1:00 PM CDT Virtual Visit [facility] Management [address] [address] Sharee Negron, ÁNGEL [address] [place] [address] 714375 documented as of this encounter Visit Diagnoses Not on filedocumented in this encounter Care Teams Telephone Assembler Relationship Specialty Start Date End Date Ernestina Martini PCP - General Family Practice 10/12/19 08/18/22 Roderick Morelos MD [address] [place] [id number] Cardiovascular Disease 02/03/22 Magno Wood MD [address] [place] [address] 059035 Otolaryngology 02/21/22 Sophie Ocasio AuD [address] [place] [address] 217125 Windows Application Packager Audiology 02/21/22 Henny Rosales APRN KNURLING MACHINE OPERATOR [address] [place] [phone] Assigned Heart and Vascular Provider 08/09/22 documented as of this encounter
--- OUTSIDE RECORDS SUMMARY | 2023-05-09 18:26 | XMS_ITS | Encounter Summary ---
Author Name Unknown Organization [place] Address [address] [place] [address] Care Team Providers Care Merit System Director Name Role Phone Roderick Morelos MD Unavailable [phone] Magno Wood MD Unavailable [phone] Sophie Ocasio Unavailable [phone] Henny Rosales TATTOO AND BODY ARTIST GRADUATE STUDIES DEAN Unavailable [phone] [facility] Primary Care Pr ovider Sharee Negron RD Unavailable Kaykay Duarte [facility] Primary Care Provider [phone] Christiane Rodríguez MD Unavailable [phone] Luis A Escobedo MD Unavailable [phone] Chely Fernandez PA-C Unavailable [phone] Jing Cadena TATTOO AND BODY ARTIST DINKEY MECHANIC Unavailable [phone] Radha Loepz [facility] Unavailable [phone] Luis A Escobedo MD Unavailable [phone] Geri Loza PA-C Unavailable [phone] Encounter Details Date Type Department Care Team (Late st Contact Info) Description 08/25/2022 Telephone [facility] Weight Management Clinic [address] [phone] Geri Loza PA-C [address] [place] [address] [phone] Social History Tobacco Use Types Packs/Day Years [...] encounter Miscellaneous Notes * Telephone Encounter - Geri Hoang - 08/27/2022 11:35 AM CDT Patient callings regarding the message below. Please reply back to the patient. Patient stated thatmeenakshi is being inpatient but she had her appointment with Geri Loza two weeks ago. Send myc msg * Telephone Encounter - Rowena Small - 08/25/2022 4:57 PM CDT Pt requesting mychart message to update her where she is at in the process after her initial appointment. documented in this encounter Plan of Treatment Upcoming Encounters Date Type Department Care Team (Late st Contact Info) Description 06/24/2023 12:30 PM CDT Virtual Visit [facility] Clinic [address] [phone] Geri Loza PA-C [address] [place] [address] 06/24/2023 1:00 PM CDT Virtual Visit [facility] [place] [address] [place] [address] [address] [place] [phone] [place] [address] [phone] documented as of this encounter Visit Diagnoses Not on filedocumented in this encounter Care Teams Merit System Director Relationship Specialty Start Date End Date Clinic, [facility] [place] [address] [place] [address] PCP - General 08/19/22 10/14/22 [place] [address] [place] 506167 PCP - General 10/15/22 Roderick Morelos MD [address] [place] 186165 Cardiovascular Disease 02/03/22 Magno Wood MD [address] [place] [address] 396 [place], [place] 338835 Otolaryngology 02/21/22 Sophie Ocasio AuD [address] [place] [address] 181795 Insurance Verification Rep Audiology 02/21/22 Henny Rosales APRN GRADUATE STUDIES DEAN [address] [place] [phone] Assigned Heart and Vascular Provider 08/09/[address] [place] [address] Registered Dietitian Dietitian, Registered 09/02/22 Christiane Rodríguez MD 420 [facility] 396 [place], [place] 976695 Otolaryngology 11/12/22 Luis A Escobedo MD 420 [facility] 195 [place], [place] 126905 Assigned Surgical Provider 11/01/22 11/28/22 Chely Fernandez PA-C [address] [place] [address] 181485 Assigned Surgical Provider 11/29/22 02/06/23 Jing Cadena, TATTOO AND BODY ARTIST DINKEY MECHANIC 420 [facility] 450 [place], [place] 626365 Clinical Nurse Specialist Anesthesiology 01/15/23 Radha Lopez, [facility] [address] [place] [address] 147835 Pharmacist Pharmacist 01/16/23 Luis A Escobedo MD 420 [facility] 195 [place] [address] Assigned Surgical Provider 02/07/23 04/15/23 Geri Loza PA-C [address] [place] [address] Assigned Surgical Provider 04/16/23 documented as of this encounter
--- OUTSIDE RECORDS SUMMARY | 2023-05-09 18:26 | XMS_ITS | Encounter Summary ---
Author Name Unknown Organization [place] Address [address] [place] [address] Care Team Providers Care Denture Technician Name Role Phone Elvia Nugent [place] Primary Care Provider Unavailable Roderick Morelos MD Unavailable [phone] Magno Wood MD Unavailable [phone] Sophie Ocasio Unavailable [phone] Henny Rosales MOTOCROSS RACER CLUB WAITER/WAITRESS Unavailable [phone] [facility] [place] Jovanna [place] Primary Care Pr ovider Sharee Negron RD Unavailable Kaykay uDarte METALLURGICAL TECHNICIAN Primary Care Provider [phone] Christiane Rodríguez MD Unavailable [phone] Luis A Escobedo MD Unavailable +[phone] Chely Fernandez PA-C Unavailable [phone] Jing Cadena MOTOCROSS RACER COMMUNITY ARTS OFFICER Unavailable + [phone] Radha Lopez [facility] Unavailable [phone] Luis A Escobedo MD Unavailable [phone] Geri Loza PA-C Unavailable [phone] Encounter Details Date Type Department Care Team (Late st Contact Info) Description 08/16/2022 MyC Medical Advice [facility] Weight Management [address] [phone] Kang Griffiths Social History Tobacco Use Types [...] Description 06/24/2023 12:30 PM CDT Virtual Visit [facility] [address] [phone] Geri Loza PA-C [address] [place] [address] [phone] 06/24/2023 1:00 PM CDT Virtual Visit [facility] [address] [phone] Sharee Negron, RD [address] [place] [address] documented as of this encounter Visit Diagnoses Not on filedocumented in this encounter Care Teams Denture Technician Relationship Specialty Start Date End Date Ernestina Martini PCP - General Family Practice 10/12/19 08/18/22 [place] [address] [place] [address] PCP - General 08/19/22 10/14/22 Kaykay Duarte, METALLURGICAL TECHNICIAN [address] [place] [address] PCP - General 10/15/22 Roderick Morelos MD [address] [place] [address] Cardiovascular Disease 02/03/22 Magno Wood MD 420 [facility] 396 [place], [place] [address]165 Otolaryngology 02/21/22 Sophie Ocasio AuD [address] [place] [address] [phone] Map Plotter Audiology 02/21/22 Henny Rosales, MOTOCROSS RACER CLUB WAITER/WAITRESS [address] [place] [address] Assigned Heart and Vascular Provider 08/09/[address] [place] [address] [phone] Registered Dietitian Dietitian, Registered 09/02/22 Christiane Rodríguez MD 420 [facility] 396 [place], [place] 043395 Otolaryngology 11/12/22 Luis A Escobedo MD [address] 666885 Assigned Surgical Provider 11/01/22 11/28/22 Chely Fernandez PA-C 909 [place], [place] 106065 Assigned Surgical Provider 11/29/22 02/06/23 Jing Cadena APRN COMMUNITY ARTS OFFICER 420 [facility] 450 [place] [address] Clinical Nurse Specialist Anesthesiology 01/15/23 Radha Lopez, [facility] [address] [place] [address] 701505 Pharmacist Pharmacist 01/16/23 Luis A Escobedo MD 420 [facility] 195 [place], [place] 703055 Assigned Surgical Provider 02/07/23 04/15/23 Geri Loza PA-C [address] [place] [address] 137515 Assigned Surgical Provider 04/16/23 documented as of this encounter
--- OUTSIDE RECORDS SUMMARY | 2023-05-09 18:26 | XMS_ITS | Encounter Summary ---
Author Name Unknown Organization [place] Address [address] [place] [address] Care Team Providers Care Cash Room Clerk Name Role Phone Ernestina Martini Primary Care Provider Unavailable Roderick Morelos MD Unavailable [phone] Magno Wood MD Unavailable [phone] Sophie Ocasio Unavailable [phone] Roderick Morelos MD Unavailable [phone] Encounter Details Date Type Department Care Team (Latest Contact Info) Description 08/08/2022 Travel Social History Tobacco Use Types Packs/Day Years Used Date Smoking Tobacco: Never Smokeless Tobacco: Never Alcohol Use Standard Drinks/Week Comments Yes 0 (1 standard drink = 0.6 oz pur e alcohol) socially Sex and Gender Information Value Date Recorded [...] Virtual Visit [facility] [address] 4th [place] [address] Geri Loza PA-C 909 [place] [address] 06/24/2023 1:00 PM CDT Virtual Visit [facility] [address]th [place] [phone] Sharee Negron, RD 9 [place] [address] documented as of this encounter Visit Diagnoses Not on filedocumented in this encounter Care Teams Cash Room Clerk Relationship Specialty Start Date End Date Ernestina Martini PCP - General Family Practice 10/12/19 08/18/22 Roderick Morelos MD [address] [place] [address] Cardiovascular Disease 02/03/22 Magno Wood MD [address] [place] [address] Otolaryngology 02/21/22 Sophie Ocasio AuD [address] [place] [address] Hotel Manager Audiology 02/21/22 Roderick Morelos MD [address] [place] [address] Assigned Heart and Vascular Provider 07/26/22 08/08/22 documented as of this encounter
--- OUTSIDE RECORDS SUMMARY | 2023-05-09 18:26 | XMS_ITS | Encounter Summary ---
Author Name Unknown Organization [place] Address [address] [place] [address]. [place] [address] Care Team Providers Care Roof Truss Detailer Name Role Phone Elvia [place], [place] Primary Care Provider Unavailable Roderick Morelos MD Unavailable [phone] Roderick Morelos MD Unavailable [phone] Magno Wood MD Unavailable [phone] Sophie Ocasio AuD Unavailable [phone] Reason for Visit * Reason Onset Date Comments Previsit 06/03/2022 Encounter Details Date Type Department Care Team (Late st Contact Info) Description 06/03/2022 PRE VISIT [facility] [address] 4th [place] [address] Magno Wood MD [facility] [address] [facility] [address] [address] Previsit Social History Tobacco Use Types Packs/Day [...] * Telephone Encounter - Ale Noel - 03/14/2022 7:59 AM CST FUTURE VISIT INFORMATION FUTURE VISIT INFORMATION: ?? Date: 06/03/22 ?? Time: 11:30am ?? Location: [facility] REFERRAL INFORMATION: ?? Referring provider: ?? Referring providers clinic: ?? Reason for visit/diagnosis Per pt needs ears cleaned and hearing checked pt is getting a referral set up, pt made the appt RECORDS REQUESTED FROM: Clinic name Comments Records Status Imaging Status [facility] 06/19/15 OV with Magno Wood MD Epic OY documented in this encounter Plan of Treatment Upcoming Encounters Date Type Department Care Team (Late st Contact Info) Description 06/24/2023 12:30 PM CDT Virtual Visit [facility] [address] [phone] Geri Loza PA-C [address] [place] [address] 052645 06/24/2023 1:00 PM CDT Virtual Visit [facility] [address] [phone] Sharee Negron, RD [address] [place] [address] [phone] documented as of this encounter Visit Diagnoses Not on filedocumented in this encounter Care Teams Roof Truss Detailer Relationship Specialty Start Date End Date Ernestina Martini PCP - General Family Practice 10/12/19 08/18/22 Roderick Morelos MD [address] [place] 073295 Cardiovascular Disease 02/03/22 Roderick Morelos MD [address] [place] [address] Assigned Heart and Vascular Provider 02/15/22 07/18/22 Magno Wood MD 420 [facility] 396 [place], [place] 695445 Otolaryngology 02/21/22 Sophie Ocasio AuD [address] [place] [address] 611125 Director Product Audiology 02/21/22 documented as of this encounter
--- OUTSIDE RECORDS SUMMARY | 2023-05-09 18:26 | XMS_ITS | Encounter Summary ---
Author Name Unknown Organization [place] Address [address] [place] [address] Care Team Providers Care Unit Nurse Name Role Phone Roderick Morelos MD Unavailable [phone] Magno Wood MD Unavailable [phone] Sophie Ocasio Unavailable [phone] Henny Rosales BATTERY CONTAINER TESTER ALUMINUM ENTRY LEVEL BUSINESS ANALYST Unavailable [phone] [facility] Primary Care Pr ovider Sharee Negron RD Unavailable Kaykay Duarte CHILD LIFE THERAPIST Primary Care Provider Christiane Rodríguez MD Unavailable [phone] Luis A Escobedo MD Unavailable [phone] Chely Fernandez PA-C Unavailable [phone] Jing Cadena BATTERY CONTAINER TESTER ALUMINUM SHANK BREAKER Unavailable [phone] Radha Lopez [facility] Unavailable [phone] Luis A Escobedo MD Unavailable [phone] Geri Loza PA-C Unavailable [phone] Encounter Details Date Type Department Care Team (Late st Contact Info) Description 08/19/2022 MyC Medical Advice [facility] Weight Management [address] [phone] Tanya Larsen RN Social History Tobacco Use [...] Description 06/24/2023 12:30 PM CDT Virtual Visit [facility] [address] [phone] Geri Loza PA-C [address] [place] [address] 612145 06/24/2023 1:00 PM CDT Virtual Visit [facility] [address] [phone] Sharee Negron, RD [address] [place] [address] [phone] documented as of this encounter Visit Diagnoses Not on filedocumented in this encounter Care Teams Unit Nurse Relationship Specialty Start Date End [place] [address] [place] [address] PCP - General 08/19/22 10/14/22 Kaykay Duarte NP [address] [place] [address] Dr [place] [id number] PCP - General 10/15/22 Roderick Morelos MD [address] [place], [place] 516[address] Cardiovascular Disease 02/03/22 Magno Wood MD [address] [place] [address] 153145 Otolaryngology 02/21/22 Sophie Ocasio AuD [address] [place] [address] De Alcoholizer Audiology 02/21/22 Henny Rosales APRN ENTRY LEVEL BUSINESS ANALYST [address] [place] [phone] Assigned Heart and Vascular Provider 08/09/[address] [place] [address] Registered Dietitian Dietitian, Registered 09/02/22 Christiane Rodríguez MD [address] [place] [address] 173055 Otolaryngology 11/12/22 Luis A Escobedo MD [address] [place] [address] 569155 Assigned Surgical Provider 11/01/22 11/28/22 Chely Fernandez PA-C [address] [place] [address] Assigned Surgical Provider 11/29/22 02/06/23 Jing Cadena APRN CNS 420 [facility] 450 [place], [place] 122155 Clinical Nurse Specialist Anesthesiology 01/15/23 Radha Lopez, [facility] [address] [place] [address] 617315 Pharmacist Pharmacist 01/16/23 Luis A Escobedo MD 420 [facility] 195 [place], [place] 691525 Assigned Surgical Provider 02/07/23 04/15/23 Geri Loza PA-C [address] [place] [address] 462535 Assigned Surgical Provider 04/16/23 documented as of this encounter
--- OUTSIDE RECORDS SUMMARY | 2023-05-09 18:26 | XMS_ITS | Encounter Summary ---
Author Name Unknown Organization [place] Address [facility]0 [facility] [place] [address] Care Team Providers Care Tube Worker Name Role Phone Ernestina Martini Primary Care Provider Unavailable Roderick Morelos MD Unavailable [phone] Roderick Morelos MD Unavailable [phone] Magno Wood MD Unavailable [phone] Sophie Ocasio Unavailable [phone] Encounter Details Date Type Department Care Team (Late st Contact Info) Description 05/21/2022 Telephone [facility] [address] 4th [place] [address] Magno Wood MD [facility] [address] 839215 Social History Tobacco Use Types Packs/Day Years [...] encounter Miscellaneous Notes * Telephone Encounter - Jessi Mantilla LPN - 05/21/2022 2:41 PM CST Called to get an update on the referral. We do need a referral if she wants to see Dr. Wood on 06/03. CB number to discuss. Jessi Mantilla LPN FORCING STEEL WORKER documented in this encounter Plan of Treatment Upcoming Encounters Date Type Department Care Team (Late st Contact Info) Description 06/24/2023 12:30 PM CDT Virtual Visit [facility] [address] [phone] Geri Loza PA-C [address] [place] [address] 138975 06/24/2023 1:00 PM CDT Virtual Visit [facility] [address] [phone] Sharee Negron, RD [address] [place] [address] 907385 documented as of this encounter Visit Diagnoses Not on filedocumented in this encounter Care Teams Tube Worker Relationship Specialty Start Date End Date Ernestina Martini PCP - General Family Practice 10/12/19 08/18/22 Roderick Morelos MD [address] [place] [address] Cardiovascular Disease 02/03/22 Roderick Morelos MD [address] [place] [address] Assigned Heart and Vascular Provider 02/15/22 07/18/22 Magno Wood MD [address] [place] [address] Otolaryngology 02/21/22 Sophie Ocasio, Nick 9 [place] [address] Form Coverer Audiology 02/21/22 documented as of this encounter
--- OUTSIDE RECORDS SUMMARY | 2023-05-09 18:26 | XMS_ITS | Encounter Summary ---
Author Name Unknown Organization [place] Address [address] [place] [address] Care Team Providers Care Account Maintenance Representative Name Role Phone Ernestina Martini Primary Care Provider Unavailable Roderick Morelos MD Unavailable [phone] Magno Wood MD Unavailable [phone] Sophie Ocasio Unavailable [phone] Roderick Morelos MD Unavailable [phone] Encounter Details Date Type Department Care Team (Latest Contact Info) Description 07/30/2022 Travel Social History Tobacco Use Types Packs/Day [...] suspected to have Coronavirus/COVID-19? No / Unsure 07/30/2022 9:07 AM CDT documented as of this encounter Plan of Treatment Upcoming Encounters Date Type Department Care Team (Late st Contact Info) Description 06/24/2023 12:30 PM CDT Virtual Visit [facility] [address] 4th [place] [address] Geri Loza PA-C 909 [place] [address] 06/24/2023 1:00 PM CDT Virtual Visit [facility] [address] [place] [phone] Sharee Negron, RD 9 [place] [address] documented as of this encounter Visit Diagnoses Not on filedocumented in this encounter Care Teams Account Maintenance Representative Relationship Specialty Start Date End Date Ernestina Martini PCP - General Family Practice 10/12/19 08/18/22 Roderick Morelos MD [address] [place] [address] Cardiovascular Disease 02/03/22 Magno Wood MD [address] [place] [address] Otolaryngology 02/21/22 Sophie Ocasio AuD [address] [place] [address] Electrolysis Engineer Audiology 02/21/22 Roderick Morelos MD [address] [place] [address] Assigned Heart and Vascular Provider 07/26/22 08/08/22 documented as of this encounter
--- OUTSIDE RECORDS SUMMARY | 2023-05-09 18:26 | XMS_ITS | Encounter Summary ---
Author Name Unknown Organization [place] Address [address] [place] [address] Care Team Providers Care Cottage Supervisor Name Role Phone Roderick Morelos MD Unavailable Magno Wood MD Unavailable [phone] Sophie Ocasio Unavailable [phone] Henny Rosales POWER REACTOR SUPERVISOR ACCOUNT AUDITOR Unavailable [phone] [facility] Primary Care Pr ovider Sharee Negron RD Unavailable Kaykay Duarte COMMUNITY DIRECTOR Primary Care Provider [phone] Christiane Rodríguez MD Unavailable [phone] Luis A Escobedo MD Unavailable [phone] Chely Fernandez PA-C Unavailable [phone] Jing Cadena POWER REACTOR SUPERVISOR METALLOGRAPHER Unavailable [phone] Radha Lopez [facility] Unavailable [phone] Luis A Escobedo MD Unavailable [phone] Geri Loza PA-C Unavailable [phone] Encounter Details Date Type Department Care Team (Late st Contact Info) Description 08/19/2022 Telephone [facility] [address] [phone] Geri Loza PA-C [address] [place] [address] 767275 Social History Tobacco Use Types Packs/Day Years [...] encounter Miscellaneous Notes * Telephone Encounter - Rowena Small - 08/19/2022 9:11 AM CDT Pt has labs she needs done, but her insurance won't pay for them at [facility] and she needs the lab orders sent to [facility] in [place]. Please send myc msg to pt once lab orders sent. documented in this encounter Plan of Treatment Upcoming Encounters Date Type Department Care Team (Late st Contact Info) Description 06/24/2023 12:30 PM CDT Virtual Visit [facility] [address] [phone] Geri Loza PA-C [address] [place] [address] [phone] 06/24/2023 1:00 PM CDT Virtual Visit [facility] [address] [phone] Sharee Negron, ÁNGEL [address] [place] [address] documented as of this encounter Visit Diagnoses Not on filedocumented in this encounter Care Teams Cottage Supervisor Relationship Specialty Start [place] [address] [place] [address] PCP - General 08/19/22 10/14/22 Kaykay Duarte, COMMUNITY DIRECTOR [address] [facility] [place] [address] PCP - General 10/15/22 Roderick Morelos MD [address] [place] [address] Cardiovascular Disease 02/03/22 Magno Wood MD [address] [place] [address] Otolaryngology 02/21/22 Sophie Ocasio AuD [address] [place] [address] Campground Hand Audiology 02/21/22 Henny Rosales APRN ACCOUNT AUDITOR [address] [place] [address]-73272108 Assigned Heart and Vascular Provider 08/09/[address] [place] [address] Registered Dietitian Dietitian, Registered 09/02/22 Christiane Rodríguez MD [address] [place] [address] [facility] 396 [place] [address] Otolaryngology 11/12/22 Luis A Escobedo MD 420 [facility] 195 [place] [address] Assigned Surgical Provider 11/01/22 11/28/22 Chely Fernandez PA-C [address] [place] [address] [phone] Assigned Surgical Provider 11/29/22 02/06/23 Jing Cadena, POWER REACTOR SUPERVISOR METALLOGRAPHER 420 [facility] 450 [place], [place] 490235 Clinical Nurse Specialist Anesthesiology 01/15/23 Radha Lopez, [facility] [address] [place] [address] [phone] Pharmacist Pharmacist 01/16/23 Luis A Escobedo MD [address] [address] Assigned Surgical Provider 02/07/23 04/15/23 Geri Loza PA-C [address] [place] [address] Assigned Surgical Provider 04/16/23 documented as of this encounter
--- OUTSIDE RECORDS SUMMARY | 2023-05-09 18:26 | XMS_ITS | Encounter Summary ---
Author Name Unknown Organization [place] Address [address] [place] [address] Care Team Providers Care Manager Pipeline Name Role Phone [facility] Primary Care Provider Unavailable Roderick Morelos MD Unavailable [phone] Roderick Morelos MD Unavailable [phone] Magno Wood MD Unavailable [phone] Sophie Ocasio AuD Unavailable [phone] Parth Ellis MD Unavailable [phone] Roderick Morelos MD Unavailable [phone] Henny Rosales APRN WAGE HAND Unavailable [phone] [facility] Jovanna Hartly Primary Care Pr ovider Sharee Negron RD Unavailable Kaykay Duarte [facility] Primary Care Provider Christiane Rodríguez MD Unavailable [phone] Luis A Escobedo MD Unavailable [phone] Chely Fernandez PA-C Unavailable [phone] Jing Cadena AEGIS CONSOLE OPERATOR TRACK KNIFE SETTER GRINDER MACHINE Unavailable [phone] Radha Lopez [facility] Unavailable Luis A Escobedo MD Unavailable [phone] Geri Loza PA-C Unavailable [phone] Encounter Details Date Type Department Care Team (Late st Contact Info) Description 05/26/2022 MyC Medical Advice [facility] [address] [phone] Jessi Mantilla LPN Social History Tobacco Use Types Packs/Day Years [...] Visit [facility] [address] [phone] Geri Loza PA-C [address] [place] [address] 332335 06/24/2023 1:00 PM CDT Virtual Visit [facility] [address] [phone] Sharee Negron, RD [address] [place] [address] 295485 documented as of this encounter Visit Diagnoses Not on filedocumented in this encounter Care Teams Manager Pipeline Relationship Specialty Start Date End Date Ernestina Martini PCP - General Family Practice 10/12/19 [facility]18[facility] [address] [place] [address] PCP - General 08/19/22 10/14/22 Kaykay Duarte NP [address] [place], [place] [address] [address] PCP - General 10/15/22 Roderick Morelos MD [address] [place] [address] Cardiovascular Disease 02/03/22 Roderick Morelos MD [address] [place] [address] Assigned Heart and Vascular Provider 02/15/22 07/18/22 Magno Wood MD [address] [place] [address] 347685 Otolaryngology 02/21/22 Sophie Ocasio, Nick [address] [place] [address] 387975 Engineering Assistant Audiology 02/21/22 Parth Ellis MD [address] [place] [address] Assigned Heart and Vascular Provider 07/19/22 07/25/22 Roderick Moreols MD [address] [place] [address] Assigned Heart and Vascular Provider 07/26/22 08/08/22 Henny Rosales APRN WAGE HAND [address] [place] [address] Assigned Heart and Vascular Provider 08/09/[address]09 [place] [address] Registered Dietitian Dietitian, Registered 09/02/22 Christiane Rodríguez MD 420 [facility] 396 [place], [place] 069055 Otolaryngology 11/12/22 Luis A Escobedo MD 420 [facility] 195 [place], [place] 858675 Assigned Surgical Provider 11/01/22 11/28/22 Chely Fernandez PA-C [address] [place] [address] 573805 Assigned Surgical Provider 11/29/22 02/06/23 Jing Cadena, AEGIS CONSOLE OPERATOR TRACK KNIFE SETTER GRINDER MACHINE 420 [facility] 450 [place], [place] 0[address]35 Clinical Nurse Specialist Anesthesiology 01/15/23 Radha Lopez, [facility] [address] [place] [address] [phone] Pharmacist Pharmacist 01/16/23 Luis A Escobedo MD 420 [facility] 195 [place] [address] Assigned Surgical Provider 02/07/23 04/15/23 Geri Loza PA-C [address] [place] [address] Assigned Surgical Provider 04/16/23 documented as of this encounter
--- OUTSIDE RECORDS SUMMARY | 2023-05-09 18:26 | XMS_ITS | Encounter Summary ---
Author Name Unknown Organization [place] Address [address] [place] [id number] Care Team Providers Care Program Clerk Name Role Phone [facility] Provider Unavailable Roderick Morelos MD Unavailable [phone] Roderick Morelos MD Unavailable [phone] Magno Wood MD Unavailable [phone] Sophie Ocasio AuD Unavailable [phone] Parth Ellis MD Unavailable [phone] Roderick Morelos MD Unavailable [phone] Henny Rosales APRN ORTHOPEDIC SHOE FITTER Unavailable [phone] [facility] Jovanna Piqua Primary Care Pr ovider Sharee Negron RD Unavailable Kaykay Duarte CORE MAN Primary Care Provider Christiane Rodríguez MD Unavailable [phone] Luis A Escobedo MD Unavailable [phone] Chely Fernandez PA-C Unavailable [phone] Jing Cadena DIPPER AND DRIER PRECISION DEVICES INSPECTOR/TESTER Unavailable + [phone] Radha Lopez [facility] Unavailable [phone] Luis A Escobedo MD Unavailable [phone] Geri Loza PA-C Unavailable [phone] Encounter Details Date Type Department Care Team (Late Contact Info) Description 04/01/2022 MyC Medical Advice [facility] [address] [phone] [facility] Tobacco Use Types Packs/Day Years [...] Visit [facility] [address] [phone] Geri Loza PA-C [address] [place] [address] [phone] 06/24/2023 1:00 PM CDT Virtual Visit [facility] Management [address] [phone] Sharee Negron, RD [address] [place] [address] [phone] documented as of this encounter Visit Diagnoses Not on filedocumented in this encounter Care Teams Program Clerk Relationship Specialty Start Date End Date Ernestina Martini PCP - General Family Practice 10/12/19 [facility] [address] [place] [address] PCP - General 08/19/22 10/14/22 Kaykay Duarte CORE MAN [address] [place] [address] PCP - General 10/15/22 Roderick Morelos MD [address] [place] [address] Cardiovascular Disease 02/03/22 Roderick Morelos MD [address] [address] Assigned Heart and Vascular Provider 02/15/22 07/18/22 Magno Wood MD [address] [place] [address] [phone] Otolaryngology 02/21/22 Sophie Ocasio AuD [address] [place] [address] [phone] Night Shift Manager Audiology 02/21/22 Parth Ellis MD [address] [address] Assigned Heart and Vascular Provider 07/19/22 07/25/22 Roderick Mroelos MD [address] [address] Assigned Heart and Vascular Provider 07/26/22 08/08/22 Henny Rosales APRN ORTHOPEDIC SHOE FITTER [address] [place] [phone] Assigned Heart and Vascular Provider 08/09/[address] [place] [address] Registered Dietitian Dietitian, Registered 09/02/22 Christiane Rodríguez MD [address] [facility] [address] [place] [address] Otolaryngology 11/12/22 Luis A Escobedo MD [address] [facility] [address] [place], [place] [phone] Assigned Surgical Provider 11/01/22 11/28/22 Chely Fernandez PA-C [address] [place] [address] [phone] Assigned Surgical Provider 11/29/22 02/06/23 Jing Cadena, DIPPER [employer] DRIER PRECISION DEVICES INSPECTOR/TESTER [address] [facility] [address] [place], [place] [phone] Clinical Nurse Specialist Anesthesiology 01/15/23 Radha Lopez, [facility] [address] [place] [address] [phone] Pharmacist Pharmacist 01/16/23 Luis A Escobedo MD [address] [place] [address] Assigned Surgical Provider 02/07/23 04/15/23 Geri Loza PA-C [address] [place] [address] Assigned Surgical Provider 04/16/23 documented as of this encounter
--- OUTSIDE RECORDS SUMMARY | 2023-05-09 18:26 | XMS_ITS | Encounter Summary ---
Author Name Unknown Organization [facility] Address [address] [place] [id number] Care Team Providers Care Maintenance Controller Name Role Phone Ernestina Martini Primary Care Provider Unavailable Roderick Morelos MD Unavailable [phone] Magno Wood MD Unavailable [phone] Sophie Ocasio Unavailable [phone] Henny Rosales APRN INHALATION THERAPY AIDES TEACHER Unavailable [phone] [facility], Elvia Do Primary Care Pr ovider Reason for Visit * Reason Comments Consult Encounter Details Date Type Department Care Team (Latest Contact Info) Description 08/15/2022 7:00 AM CDT Virtual Visit [facility] [address] 4th [place] [address] Geri Loza PA-C [address] [place] [address] [id number] Class 3 severe obesity with serious comorbidity and body mass index (BMI) of 45.0 to 49.9 in adult, unspecified obesity type (H) (Primary Dx); S/P laparoscopic sleeve gastrectomy; Gastroesophageal reflux disease with esophagitis, unspecified whether hemorrhage; Constipation, unspecified constipation type Social History Tobacco Use Types Packs/Day Years [...] - Inhaled Oxygen Concentration - - Weight 138.3 kg (305 lb) 08/15/2022 6:39 AM CDT Height 167.6 cm (5' 6) 08/15/2022 6:39 AM CDT Body Mass Index 49.23 08/15/2022 6:39 AM CDT documented in this encounter Patient Instructions * Patient Instructions* Geri Loza PA-C - 08/15/2022 7:00 AM CDT Thank you for allowing us the privilege [...] LOZA PA-C today. Instructions per today's visit: Constipation - start Miralax 1 cap daily GERD - start omeprazole 20mg once daily Bariatric labs ordered To schedule the Lab Appointment using Beats Music: Select Schedule an Appointment Select Lab Only For A couple of questions, select Other For Which locations work for you?, select the location and set up the appointment To schedule by phone call [phone] to schedule a lab only appointment at any [facility] lab. Start Vitamins - MV, Calcium citrate B12 once monthly injection prescribed Will discuss with bariatric team about surgical options Follow up with Geri Gaytan in 3 month Dietitian next available Important contact and scheduling information: Please call our contact center at [phone] to schedule your next appointments. To find a lab location near you, please call . For any nursing questions or concerns call Angélica Milligan LPN at [phone] or Henny Lobo RN [phone] Please call during clinic hours Thursday through Thursday 8:00a - 4:00p if you have questions or you can contact us via MESIhart at anytime and we will reply during clinic hours. Lab results will be communicated through My Chart or letter (if My Chart not used). Please call theclinic if you have not received communication after 1 week or if you have any questions.? Clinic If you are asked by your clinic team to have your blood pressure checked: [facility] do offer several locations for blood pressure checks. Please follow the below link to schedule an appointment. Scheduling an appointment at the pharmacy for a blood pressure check is now preferred. Appointment Plus (appointment-plus.Oxlo Systems) Meal Replacement Products: Here is the link to our new e-store where you can purchase our meal replacement products [facility] E-Store Pikanote.Loop/store The one week starter kit is a great way to sample a variety of products and see what works for you. If you want more information about the product go to: Fresh Steps Meals [employer]Frog Path Lab Solutions.Oxlo Systems If you are an employee or [facility] or [facility] please contact your care team for a 10% estore discount Free Shipping for orders over $75 Benefits of meal replacements products: Portion and calorie control Improved nutrition Structured eating Simplified food choices Avoid contact with trigger foods Interested in working with a health motor coach tour operator? Health coaches work with you to improve your overall health and wellbeing. They look at the whole person, and may involve discussion of different areas of life, including, but not limited to the four pillars of health (sleep, exercise, nutrition, and stress management). Discuss with your care team if you would like to start working a health motor coach tour operator. Health Coaching-3 Pack: Schedule by calling [phone] ?? $99 for three health coaching visits ?? Visits may be done in person or via phone ?? Coaching is a partnership between the motor coach tour operator and the client; Coaches do not prescribe [...] of the way. Monthly meetings with your certified registered nurse practitioner or medical weight management provider help to review your progress, update your care plan, and make any adjustments needed to ensure success. Between these visits, weekly and bi-weekly health motor coach tour operator visits will help you focus on the four pillars of weight loss -- stress, sleep, nutrition, and exercise -- and how you can best adapt each to achieve sustainable weight loss results. In addition, you will be given exclusive access to online wellbeing classes through UB Access. Your initial visit will be with a medical weight management provider who will help to understand your weight loss goals and ensure this program is the right fit for you. Please let our team know if you are interested in the 24 week plan by sending a message to your care team or calling [phone] schedule. COMPREHENSIVE WEIGHT MANAGEMENT PROGRAM VIRTUAL SUPPORT GROUPS For Support Group Information: We offer support groups for patients who are working on weight loss and considering, preparing for or have had weight loss surgery. There is no cost for this opportunity. You are invited to attend the?Virtual Support Groups?provided by any of the following locations: [facility] via Quadriserv with Nikky Lal RN 2. [place] via Quadriserv with Bandar Vera, PhD, LP 3. [place] via Quadriserv with Yamilex Ware RN 4. [facility] via Quadriserv with Yamilex Nix [facility] The following Support Group information can also be found on our website: [email or web address] [facility] Weight Loss Surgery Support Group [facility] Weight Loss Surgery Support Group The support group is a patient-lead forum that meets monthly to share experiences, encouragement and education. It is open to those who have had weight loss surgery, are scheduled for surgery, and those who are considering surgery. WHEN: This group meets on the Thursday of each month from 5:00PM - 6:00PM virtually using Quadriserv. ORDNANCE TRUCK INSTALLATION MECHANIC: Led by Nikky Lal RD, LD, RN, the program's Clinical Coordinator. TO REGISTER: Please contact the clinic via Beats Music or call the nurse line directly at [phone] to inform our staff that you would like an invite sent to you and to let us know the email you wouldlike the invite sent to. Prior to the meeting, a link with directions on how to join the meeting will be sent to you. 2021September 04: Let's Talk a time for the group to share. October 09: Let's Talk a time for the group to share. November 06: Let's Talk a time for the group to share. December 11: Let's Talk a time for the group to share. January 08: Guest Speaker: Dr Steve Gan MD Battery Assembler Plastic and Sleep Medicine Physician, Getting a Good Night's Sleep. February 05: Let's Talk a time for the group to share. March 12: Let's Talk a time for the group to share. [facility] and Specialty [facility] Support Groups Connections: Bariatric Care Support Group? This is open to all [facility] (and those external to this program) pre- and post- operativebariatric surgery patients as well as their support system. WHEN: This group meets the Thursday of each month from 6:30 PM - 8:00 PM virtually using Quadriserv. ORDNANCE TRUCK INSTALLATION MECHANIC: Led by Bandar Vera, Ph.D who is a Licensed Psychologist with the [facility] Comprehensive Weight Management Program. TO REGISTER: Please send an email to Bandar Vera, Ph.D., LP at? ?if you would like an invitation to the group and to learn about using Quadriserv. 2021September 03: Jamila Gaming RD, JORDAN at [facility], Nutritional Labeling October 01 October 22 (Please Note Date Change) December 03 December 31 January 28 March 04 Connections: Post-Operative Bariatric Surgery Support Group This is a support group for [facility] bariatric patients (and those external to [facility]) who have had bariatric surgery and are at least 3 months post-surgery. WHEN: This support group meets the Thursday of the month from 11:00 AM - 12:00 PM virtually using Quadriserv. ORDNANCE TRUCK INSTALLATION MECHANIC: Led by Certified Bariatric Nurse, Yamilex Feig, RN. TO REGISTER: Please send an email to Yamilex at [email or web address] if you would like an invitation to the group and to learn about using Quadriserv. 2021 Meetings September 11 October 16 November 13 December 18 January 15 February 12 March 19 [facility] Healthy Lifestyle Virtual Support Group Healthy Lifestyle Virtual Support Group? This is 60 minutes of small group guided discussion, support and resources. All are welcome who want a healthy lifestyle. WHEN: This group meets monthly on a Thursday from 12:30 PM - 1:30 PM virtually using Quadriserv. ORDNANCE TRUCK INSTALLATION MECHANIC: Led by National Board Certified Health and Political Reporter, Yamilex Nix [facility]. TO REGISTER: Please send an email to Yamilex [email or web address] to receive monthly invites to the group or if you have any questions about having a health motor coach tour operator. Prior to the meeting, a link with directions on how to join the meeting will be sent to you. 2021 Meetings September 13: Yamilex Nix [facility], Setting Limits and Boundaries. Oct 18: Open Forum November 15: Guest Speaker: Alejandra Pruitt Registered Dietitian December 20: Open Forum January 17: Guest Speaker: Margy Aguirre [facility], Health Instructional Assistant, Gratitude Practices. February 07: Guest Speaker: Sharee Negron RD Registered Dietitian, Navigating How to Eat around the Holidays. March 07: Guest Speaker: Leena Argueta [facility], Changing Your Relationship with Movement. [place] [facility] Get Moving Program Our [...] the program with your medical provider or certified adapted physical educator. You can also call us at [phone] to ask questions or schedule an appointment. PRASANTH Get Moving Program [facility] Diabetes Prevention Program (DPP) If you have prediabetes and Medicare please contact us via MESIhart to learn more about the DiabetesPrevention Program (DPP) Program Details: [facility] offers the year-long Diabetes Prevention Program (DPP). The program helps you to make lifestyle changes that prevent or delay type 2 diabetes by supporting healthy eating, increasedphysical activity, stress reduction and use of coping skills. On average, previous [facility] DPP cohorts have lost and maintained [...] can resume, they will be held at [facility]. For people with Medicare, the program is covered in full. A self-pay option will also be available for those with non-Medicare insurance plans. Bluetooth Scale: We hope to provide you with high quality virtual healthcare visits while social distancing for COVID-19 is necessary, as well as in the future when virtual visits may be more convenient for you. Our technology team made it possible for Bluetooth scales to send weight measurements to our electronic medical record. This allows weights from you weighing at home to securely flow into the medicalrecord, which will improve telephone and virtual visits. Additionally, studies have shown that adults actually lose more weight when their weights are automatically sent to someone else, and also that this process is not stressful for those adults. Below is a link for purchasing the scale, with a discount code for our patients. You may call your insurance company to see if they will reimburse you for the cost of the scale, as a piece of durablemedical equipment. The scales only go up to a weight of 400 pounds. This is an issue and we are working with the developer on increasing this. We found no scales that go over 400lb that have blue-tooth for connecting to Beats Music. Scale to purchase: the [employer]Fanz ???Body?? Scale: [email or web address].[email or web address]/us/en/body/shop?[email or web address]=aw.ds Discount Code: We have a discount code for our patients to bring the cost down to $50, Discount code is: [place]_Scale_20%off To work with a Behavioral Health Psychologist: Call to schedule: John Lin - Marleni Tomlinson - Love Valdes - Rosie Henderson - Liana Lyons PhD (cannot accept Medicare) [phone] Thank you, [facility] Weight Management Team documented in this encounter Progress Notes * Geri Loza PA-C - 08/15/2022 7:00 AM CDT Virtual Visit Details Type of service: Video Visit Video Start Time: 7:01AM Video End Time:7:56AM Originating Location (pt. Location): Home Distant Location (provider location): Off-site Platform used for Video Visit: [facility] Bariatric Surgery Note RE: Billie Connolly MR#: [id number] : 1970 VISIT DATE: August 15, 2022 Dear Ernestina Martini, I had the pleasure of seeing your patient, Billie Connolly, in my post-bariatric surgery assessment clinic. Assessment & Plan Problem List Items Addressed This Visit Digestive Gastroesophageal reflux disease with esophagitis GERD onstet after sleeve surgery. Symptoms include burning in chest/throat and acid in throat. Symptoms worsened with food. Triggered by acidic food. Takes TUMs PRN. Denies vomiting. UGI 08/08/2022. Will start Omeprazole 20mg once daily for symptom control. Class 3 severe obesity with serious comorbidity and body mass index (BMI) of 45.0 to 49.9 in adult,unspecified obesity type (H) - Primary Overweight onset through 3 pregnancies and was weight stable at 250lbs for many years. Weight gain was very gradual. Decided to complete bariatric surgery after years of consider for help with resistant weight loss. Gastric sleeve was completed 08/09/[address] [facility] [address] Barillas. Starting weight 338lb, BMI 56.25. She felt that instantly did not see expected weight loss results. Per chart review had lost 8lbsby 3 months post op and has followed up with [facility] since. She has lost 38lbs since surgery, [...] team meeting and discuss possible surgical options. Relevant Medications tirzepatide (MOUNJARO) 15 MG/0.5ML pen Other Relevant Orders CBC with platelets Ferritin Comprehensive metabolic panel Hemoglobin A1c Lipid panel reflex to direct LDL Fasting Parathyroid Hormone Intact Vitamin A Vitamin D Deficiency Vitamin B12 Other S/P laparoscopic sleeve gastrectomy S/p gastric sleeve 08/09/2020 at [facility]. No post op complications. Weight prior to surgery - 338lbs, BMI 56.25 Braxton weight - 300lbs Weight today - 305lbs Denies nausea, vomiting, dysphagia, diarrhea. ETOH - rarely. No nicotine. NSAIDs - ibuprofen rarely for chronic back pain. Caffeine - 1 cup coffee daily Relevant Medications Syringe/Needle, Disp, (BD ECLIPSE SYRINGE/NEEDLE) 25G X 5/8 3 ML MISC cyanocobalamin (CYANOCOBALAMIN) 1000 MCG/ML injection Other Visit Diagnoses Constipation, unspecified constipation type 1. Constipation - start Miralax 1 cap daily 2. GERD - start omeprazole 20mg once daily 3. Bariatric labs ordered 4. Start Vitamins - MV, Calcium citrate 5. B12 once monthly injection prescribed 6. Will discuss with bariatric team about surgical options 7. Follow up with Geri Gaytan in 3 month 8. Dietitian next available 70 minutes spent by me on the date of the encounter doing chart review, history and exam, documentation and further activities per the note CHIEF COMPLAINT: Post-bariatric surgery follow-up. 1.5 years s/p gastric sleeve with [facility]. HISTORY OF PRESENT ILLNESS: 08/12/2022 8:45 PM [...] Do you have any concerns today? Yes S/p gastric sleeve 08/09/2020 at [facility]. No post op complications. Weight prior to surgery - 338lbs, BMI 56.25 Braxton weight - 300lbs Weight today - 305lbs Overweight onset with 3 pregnancies. Was maintained weight of 250lbs for many years. Weight gain was very gradual with no changes in food or exercise. Decided to go through bariatric surgery after years of consideration to help with resistant weight loss. Has been able to maintain weight. However, was not the expected weight loss. Would like to considera converstion to a RYBP. Fully compliant with follow up at [facility]. Has been following with dietitians closely. Anti-obesity medications: Current: Mounjaro 15mg - has been on this dose for 7 weeks. No side effects. Some help with hunger. Decreasein portion sizes. Feeling funk faster. Recent diet changes: Eating 3 meals a day. No snacks. Has some restriction on her sleeve. Portion sizes around 1 cup. Increase hunger, especially in the morning. Tolerates normal diet without concern. Some intrusive thoughts of food, but has improved since surgery. Can get full, but struggles to stay full. No cravings. -Protein? 40-50g daily. -Water? 40oz daily Recent exercise/activity changes: Very limited due to chronic hip pain. Needs to get replaced. Recent sleep changes: Can fall asleep, but struggles to stay asleep. Has a CPAP, but does not use it every night. Has improved since surgery Vitamins/Labs: Not taking any vitamins Denies nausea, vomiting, dysphagia, diarrhea. Constipation - Has a BM every other day. Stools are hard. Has to push and strain. Has hemmoroids, so will have blood in stool. Denies melena. Colonoscopy scheduled in October. Seems to have worsened with starting Mounjaro. GERD - Symptoms include burning in chest/throat, acid reflex. Worsened with meals. Triggered by acidic foods. Has worsened with surgery. Takes TUMs PRN. Denies vomiting. UGI 08/08/2022. Denies dumping syndrome or hypoglycemic concerns. ETOH - rarely. No nicotine. NSAIDs - ibuprofen rarely for chronic back pain. Caffeine - 1 cup coffee daily Weight History: 08/12/2022 8:45 PM -- What is your highest lifetime weight? 352 What is your lowest weight since surgery? (In pounds) 304 Weight: 138.3 kg (305 lb) 08/12/2022 8:45 PM Questions Regarding Co-Morbidities and [...] Joint pain Worsened Lower leg swelling Never Asthma - only when sick MARVA - has a CPAP, uses it most days. Followed by sleep. Hypothyroidism - well controlled on medications. Followed by PCP currently. HLD - not on medications. Being monitored by PCP Type II Diabetes - taking mounjaro. Does not check BS at home. Followed by endocrinology SVT - history of ablation. Not on medications Followed by cardiology. RLS - takes gabapentin. Followed by PCP Chronic pain in right hip - will need a hip replacement in the future. Followed by PCP. Takes celebrex at times. No hx of bleeding or clotting disorder 08/12/2022 8:45 PM Eating Habits How many [...] smoking? No Are you drinking alcohol? 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 Supportive family and friends. No drugs or THC. Medications: Current Outpatient Medications Medication ??? albuterol (PROAIR HFA/PROVENTIL HFA/VENTOLIN HFA) 108 (90 Base) MCG/ACT inhaler ??? albuterol (PROVENTIL) (2.5 MG/3ML) 0.083% neb solution ??? blood glucose (ACCU-CHEK GUIDE) test strip ??? cyanocobalamin (CYANOCOBALAMIN) 1000 MCG/ML injection ??? estradiol (ESTRACE) 0.1 MG/GM vaginal cream ??? fluticasone (FLOVENT HFA) 110 MCG/ACT inhaler ??? gabapentin (NEURONTIN) 600 MG tablet ??? levothyroxine (SYNTHROID/LEVOTHROID) 200 MCG tablet ??? omeprazole (PRILOSEC) [address] capsule ??? predniSONE (DELTASONE) 20 MG tablet ??? rOPINIRole (REQUIP) 2 MG tablet ??? Syringe/Needle, Disp, (BD ECLIPSE SYRINGE/NEEDLE) 25G X 5/8 3 ML MISC ??? tirzepatide (MOUNJARO) 15 MG/0.5ML pen ??? albuterol (PROVENTIL) (2.5 MG/3ML) 0.083% neb solution ??? celecoxib (CELEBREX) 200 MG capsule ??? levonorgestrel (MIRENA) 52 MG (20 mcg/day) IUD No current facility-administered medications for this visit. [...] of menstrual cycles Stress urinary incontinence No Anti-obesity medication ROS: HEENT Hx of glaucoma: No Cardiovascular CAD:Yes HTN:No Gastrointestinal GERD:Yes Constipation:Yes Liver Dz:No H/O Pancreatitis:No Psychiatric Bipolar: No Anxiety:No Depression:No History of alcohol/drug abuse: No Hx of eating disorder:No Endocrine Personal or family hx of MTC or MEN2:No Diabetes/prediabetes: Yes Neurologic: Hx of seizures: No Hx of migraines: No Memory Impairment: No History of kidney stones: No Kidney disease: No Current control: Yes, IUD Taking Opioid/Narcotic: No UGI: 08/08/2022 FINDINGS: The patient easily swallowed thin liquid barium. Esophageal motility is normal. No hiatal hernia is seen. No gastroesophageal reflux could be elicited. Patient is status post sleeve gastrectomy. The surgical line is intact. There is no extravasation. There is no gastric outlet obstruction. No obvious intrinsic gastric mass is seen. The duodenal bulb is normal in contour and the C-loop is unremarkable. IMPRESSION: Intact gastric sleeve. Negative upper GI. Objective Ht 1.676 m (5' 6) Wt 138.3 kg (305 lb) BMI 49.23 kg/m?? Physical Exam GENERAL: Healthy, alert and no [...] encounter Nursing Notes * Virginia Ramirez - 08/15/2022 7:00 AM CDT Is the patient currently in the state of [place]? YES Visit mode:VIDEO If the visit is dropped, the patient can be reconnected by: VIDEO VISIT: Text to cell phone: [phone] Will anyone else be joining the visit? NO How would you like to obtain your AVS? MyChart Are changes needed to the allergy or medication list? YES: see duplicate pt stated also taking celebrex when hip pain is bad Reason for visit: Consult Pt was unsure of initial weight MERCY Cruz documented in this encounter Miscellaneous Notes * Assessment & Plan Note - Geri Loza PA-C - 08/20/2022 5:20 PM CDT Associated Problem(s): Class 3 severe obesity with serious comorbidity and body mass index (BMI) of45.0 to 49.9 in adult, unspecified obesity type (H) Overweight onset through 3 pregnancies and was weight stable at 250lbs for many years. Weight gain was very gradual. Decided to complete bariatric surgery after years of consider for help with resistant weight loss. Gastric sleeve was completed 08/09/2020 at [facility] with Dr. Barillas. Starting weight 338lb, BMI 56.25. She felt that instantly did not see expected weight loss results. Per chart review had lost 8lbsby 3 months post op and has followed up with [facility] since. She has lost 38lbs since surgery, [...] team meeting and discuss possible surgical options. * Assessment & Plan Note - Geri Loza PA-C - 08/20/2022 5:10 PM CDT Associated Problem(s): Gastroesophageal reflux disease with esophagitis GERD onstet after sleeve surgery. Symptoms include burning in chest/throat and acid in throat. Symptoms worsened with food. Triggered by acidic food. Takes TUMs PRN. Denies vomiting. UGI 08/08/2022. Will start Omeprazole 20mg once daily for symptom control. * Assessment & Plan Note - Geri Loza PA-C - 08/20/2022 5:09 PM CDT Associated Problem(s): S/P laparoscopic sleeve gastrectomy S/p gastric sleeve 08/09/2020 at [facility]. No post op complications. Weight prior to surgery - 338lbs, BMI 56.25 Braxton weight - 300lbs Weight today - 305lbs Denies nausea, vomiting, dysphagia, diarrhea. ETOH - rarely. No nicotine. NSAIDs - ibuprofen rarely for chronic back pain. Caffeine - 1 cup coffee daily documented in this encounter Plan of Treatment Upcoming Encounters Date Type Department Care Team (Late st Contact Info) Description 06/24/2023 12:30 PM CDT Virtual Visit [facility] Weight [facility] [address] [phone] Geri Loza PA-C [address] [place] [address] [phone] 06/24/2023 1:00 PM CDT Virtual Visit [facility] Weight Management [address] [phone] Paola Negronah Jeremy, RD [address] [place] [address] [phone] Scheduled Orders Name Type Priority Associated Diagnoses Orde r Schedule CBC with platelets Lab Routine Class 3 severe obesity with serious comorbidity and body mass index (BMI) of 45.0 to 49.9 in adult, unspecified obesity type (H) Expected: 08/15/2022 (Approximate), Expires: 08/16/2023 Comprehensive metabolic panel Lab Routine Class 3 severe obesity with serious comorbidity and body mass index (BMI) of 45.0 to 49.9 in adult, unspecified obesity type (H) Expected: 08/15/2022 (Approximate), Expires: 08/16/2023 Lipid panel reflex to direct LDL Fasting Lab Routine Class 3 severe obesity with serious comorbidity and body mass index (BMI) of 45.0 to 49.9 in adult, unspecified obesity type (H) Expected: 08/15/2022 (Approximate), Expires: 08/16/2023 Vitamin D Deficiency Lab Routine Class 3 severe obesity with serious comorbidity and body mass index (BMI) of 45.0 to 49.9 in adult, unspecified obesity type (H) Expected: 08/15/2022 (Approximate), Expires: 08/16/2023 documented as of this encounter Results * Vitamin B12 (10/23/2022 11:20 AM CDT) Vitamin B12 (External) 294 213 - 816 pg/mL NON-INTERFACED (ONBASE SCANS) Blood BLOOD SPECIMEN / Unknown 10/23/2022 11:20 AM CDT Narrative BREEZE PFT - 10/24/2022 1:41 PM CDT Verified by Gisel Izaguirre on 10/24/2022. Geri Loza PA-C LAB - BLOOD ORDERAB LES BREEZE PFT NON-INTERFACED (ONBASE SCANS) * Vitamin A (10/23/2022 11:20 AM CDT) Vitamin A (External) 0.82 0.30 - 1.20 mg/L NON-INTERFACE D (ONBASE SCANS) Scan Lab Results (External) See Scanned Report NON-INTERFACE D (ONBASE SCANS) Comment:Retinyl Palminate Vitamin A Interp (External) Normal NON-INTERFACE D (ONBASE SCANS) Blood 10/23/2022 11:2 0 AM CDT Narrative BREEZE PFT - 10/27/2022 1:35 PM CDT Verified by Justyna Pat on 10/27/2022. Geri Loza PA-C LAB - BLOOD ORDERAB LES Performing Organization Address City/[facility]/ZIP Co de Phone Number BREEZE PFT NON-INTERFACED (ONBASE SCANS) * Parathyroid Hormone Intact (10/23/2022 11:20 AM CDT) Parathyroid Hormone Intact (External) 65 10 - 100 pg/mL NON-INTERFACED (ONBASE SCANS) Blood BLOOD SPECIMEN / Unknown 10/23/2022 11:20 AM CDT Narrative BREEZE PFT - 10/24/2022 1:35 PM CDT Verified by Gisel Izaguirre on 10/24/2022. Geri Loza PA-C LAB - BLOOD ORDERAB LES BREEZE PFT NON-INTERFACED (ONBASE SCANS) * (ABNORMAL) Hemoglobin A1c (10/23/2022 11:20 AM CDT) Hemoglobin A1C (External) 7.0(H) <=5.6 % NON-INTERFACED (ONBASE SCANS) Blood BLOOD SPECIMEN / Unknown 10/23/2022 11:20 AM CDT Narrative BREEZE PFT - 10/24/2022 8:49 AM CDT Verified by Quinn Wetzel on 10/24/2022. Mary JoLucila Loza PA-C LAB - BLOOD ORDERAB LES [...] ORDERAB LES BREEZE PFT NON-INTERFACED (ONBASE SCANS) documented in this encounter Visit Diagnoses Diagnosis Class 3 severe obesity with serious comorbidity and body mass index (BMI) of 45.0 to 49.9 in adult, unspecified obesity type (H)- Primary S/P laparoscopic sleeve gastrectomy Gastroesophageal reflux disease with esophagitis, unspecified whether hemorrhage Constipation, unspecified constipation type Class 3 severe obesity with serious comorbidity and body mass index (BMI) of 45.0 to 49.9 in adult, unspecified obesity type (H) Class 3 severe obesity with serious comorbidity and body mass index (BMI) of 45.0 to 49.9 in adult, unspecified obesity type (H) documented in this encounter Care Teams Maintenance Controller Relationship Specialty Start Date End Date Ernestina Martini PCP - General Family Practice 10/12/19 08/18/22 [facility], Elvia Do [address] [place] [address] PCP - General 08/19/22 10/14/22 Roderick Morelos MD [address] [place] 911135 Cardiovascular Disease 02/03/22 Magno Wood MD [address] [facility] 396 [place], [place] [address] Otolaryngology 02/21/22 Sophie Ocasio AuD [address] [place], [place] [id number] Feedmobile Driver Audiology 02/21/22 Henny Rosales APRN INHALATION THERAPY AIDES TEACHER [address] [place] [phone] Assigned Heart and Vascular Provider 08/09/22 documented as of this encounter
--- OUTSIDE RECORDS SUMMARY | 2023-05-09 18:26 | XMS_ITS | Encounter Summary ---
Author Name Unknown Organization [facility] Address [address] [place] [address] Care Team Providers Care Education Trainer Name Role Phone [facility] Primary [facility] Provider Unavailable Roderick Morelos MD Unavailable [phone] Roderick Morelos MD Unavailable [phone] Magno Wood MD Unavailable [phone] Sophie Ocasio AuD Unavailable [phone] Parth Ellis MD Unavailable [phone] Roderick Morelos MD Unavailable [phone] Henny Rosales APRN COUTURE DRESSMAKER Unavailable [phone] [facility] Jovanna [place] Primary Care Pr ovider Sharee Negron RD Unavailable Kaykay Duarte TEST PILOT Primary Care Provider Christiane Rodríguez MD Unavailable [phone] Luis A Escobedo MD Unavailable [phone] Chely Fernandez PA-C Unavailable [phone] Jing Cadena FREIGHT ROUTER APPEALS ANALYST Unavailable + [phone] Radha Lopez [facility] Unavailable [phone] Luis A Escobedo MD Unavailable [phone] Geri Loza PA-C Unavailable [phone] Encounter Details Date Type Department Care Team (Late st Contact Info) Description 05/14/[address] [facility] Ear Nose and Throat [address] [phone] Jessi Mantilla LPN Social History Tobacco Use [...] 06/24/2023 12:30 PM CDT Virtual Visit [facility] Weight Management [address] [phone] Geri Loza PA-C [address] [place] [address] [phone] 06/24/2023 1:00 PM CDT Virtual Visit [facility] Weight Management [address] [phone] Sharee Negron, RD [address] [place] [address] [phone] documented as of this encounter Visit Diagnoses Not on filedocumented in this encounter Care Teams Education Trainer Relationship Specialty Start Date End Date Ernestina Martini PCP - General Family Practice 10/12/19 [facility]18[facility]22 [facility] [address] [place] [address] PCP - General 08/19/22 10/14/22 Kaykay Duarte NP [address] [place], [place] [address] [place] [address] PCP - General 10/15/22 Roderick Morelos MD [address] [place] [address] Cardiovascular Disease 02/03/22 Roderick Morelos MD [address] [place] [address] Assigned Heart and Vascular Provider 02/15/22 07/18/22 Magno Wood MD [address] [place] [address] [phone] Otolaryngology 02/21/22 Sophie Ocasio, Nick [address] [place] [address] [phone] Stakeholder Manager Audiology 02/21/22 Parth Ellis MD [address] [place] [address] Assigned Heart and Vascular Provider 07/19/22 07/25/22 Roderick Morelos MD [address] [place] [address] Assigned Heart and Vascular Provider 07/26/22 08/08/22 Henny Rosales APRN COUTURE DRESSMAKER [address] [place] [phone] Assigned Heart and Vascular Provider 08/09/[address] [place] [address] Registered Dietitian Dietitian, Registered 09/02/22 Christiane Rodríguez MD [address] [facility] 396 [place], [place] [address] Otolaryngology 11/12/22 Luis A Escobedo MD [address] [facility] 195 [place], [place] 425515 Assigned Surgical Provider 11/01/22 11/28/22 Chely Fernandez PA-C [address] [place] [address] [phone] Assigned Surgical Provider 11/29/22 02/06/23 Jing Cadena, FREIGHT ROUTER APPEALS ANALYST [address] [facility] [address] [place], [place] [address] Clinical Nurse Specialist Anesthesiology 01/15/23 Radha Lopez, [facility] [address] [place] [address] [phone] Pharmacist Pharmacist 01/16/23 Luis A Escobedo MD [address] [facility] 195 [place] [address] Assigned Surgical Provider 02/07/23 04/15/23 Geri Loza PA-C [address] [place] [address] Assigned Surgical Provider 04/16/23 documented as of this encounter
--- OUTSIDE RECORDS SUMMARY | 2023-05-09 18:26 | XMS_ITS | Encounter Summary ---
Author Name Unknown Organization [place] Address [address] [place] [address] Care Team Providers Care Single Resource Boss Name Role Phone [facility] Primary Care Provider Unavailable Roderick Morelos MD Unavailable [phone] Roderick Morelos MD Unavailable [phone] Magno Wood MD Unavailable Sophie Ocasio AuD Unavailable [phone] Parth Ellis MD Unavailable [phone] Roderick Morelos MD Unavailable [phone] Henny Rosales APRN DIRECTOR OF HOUSING Unavailable [phone] [facility] Jovanna [place] Primary Care Pr ovider Sharee Negron RD Unavailable Kaykay Duarte FENCE INSTALLER Primary Care Provider Christiane Rodríguez MD Unavailable [phone] Luis A Escobedo MD Unavailable [phone] Chely Fernandez PA-C Unavailable [phone] Jing Cadena FAMILY ASSISTANT RESOURCE SPECIALIST Unavailable [phone] Radha Lopez [facility] Unavailable Luis A Escobedo MD Unavailable [phone] Geri Loza PA-C Unavailable [phone] Encounter Details Date Type Department Care Team (Late Contact Info) Description 04/08/2022 MyC Medical Advice [facility] Heart [place] [phone] [facility] [address] [place] [phone] Suha Wade, RN Social History Tobacco Use Types Packs/Day [...] suspected to have Coronavirus/COVID-19? No / Unsure 04/09/2022 6:32 AM LEACHER documented as of this encounter Plan of Treatment Upcoming Encounters Date Type Department Care Team (Late st Contact Info) Description 06/24/2023 12:30 PM CDT Virtual Visit [facility] Weight Management [address] [phone] Geri Loza PA-C [address] [place] [address] [phone] 06/24/2023 1:00 PM CDT Virtual Visit [facility] Weight Management [address] [phone] Sharee Negron, RD [address] [place] [address] [phone] documented as of this encounter Visit Diagnoses Not on filedocumented in this encounter Care Teams Single Resource Boss Relationship Specialty Start Date End Date Ernestina Martini PCP - General Family Practice 10/12/19 [facility] [address] [place] [address] PCP - General 08/19/22 10/14/22 [place] [address] [place] [address] PCP - General 10/15/22 Roderick Morelos MD [address] [place] [address] Cardiovascular Disease 02/03/22 Roderick Morelos MD [address] [place] [phone] Assigned Heart and Vascular Provider 02/15/22 07/18/22 Magno Wood MD [address] [place] [address] Otolaryngology 02/21/22 Sophie Ocasio AuD [address] [place] [address] Instructional Systems Designer Audiology 02/21/22 Parth Ellis MD [address] [place] [address] Assigned Heart and Vascular Provider 07/19/22 07/25/22 Roderick Morelos MD [address] [place] [phone] Assigned Heart and Vascular Provider 07/26/22 08/08/22 Henny Rosales APRN DIRECTOR OF HOUSING [address] [place] [phone] Assigned Heart and Vascular Provider 08/09/[address] [place] [address] [phone] Registered Dietitian Dietitian, Registered 09/02/22 Christiane Rodríguez MD [address] [place] [address] 396 [place], [place] 384[address] Otolaryngology 11/12/22 Luis A Escobedo MD [address] [place] [address] 470295 Assigned Surgical Provider 11/01/22 11/28/22 Chely Fernandez PA-C [address] [place] [address] [phone] Assigned Surgical Provider 11/29/22 02/06/23 Jing Cadena, FAMILY ASSISTANT RESOURCE SPECIALIST [address] [place] [address] 450 [place], [place] 173245 Clinical Nurse Specialist Anesthesiology 01/15/23 Radha Lopez, [facility] [address] [place] [address] [phone] Pharmacist Pharmacist 01/16/23 Luis A Escobedo MD [address] [place] [address] 465255 Assigned Surgical Provider 02/07/23 04/15/23 Geri Loza PA-C [address] [place] [address] Assigned Surgical Provider 04/16/23 documented as of this encounter
--- OUTSIDE RECORDS SUMMARY | 2023-05-09 18:26 | XMS_ITS | Encounter Summary ---
Author Name Unknown Organization [place] Address [facility] [place] [address] Care Team Providers Care It Infrastructure Project Manager Name Role Phone Ernestina Martini Primary Care Provider Unavailable Roderick Morelos MD Unavailable [phone] Magno Wood MD Unavailable [phone] Sophie Ocasio Unavailable [phone] Roderick Morelos MD Unavailable [phone] Reason for Visit * Consultation (Routine: Next available opening) - Closed Specialty Diagnoses / Procedures Referred By Contact Referred To Contact Cardiovascular Disease Diagnoses SVT (supraventricular tachycardia) Kieran Gooden MD [facility] [address] [place] [address] Referral ID Status Reason Start Date Expiration Date Visits Re quested Visits Authorized [id number] Closed 01/13/2022 01/13/2023 1 1 Encounter Details Date Type Department Care Team (Late st Contact Info) Description 08/08/2022 10:30 AM CDT Office Visit [facility] Heart [address] [place] [phone] Kieran Gooden MD [facility] [address] [place] [address] Henny Rosales APRN ACCESS CLERK [address] [place] [phone] SVT (supraventricular tachycardia) (H) (Primary Dx); PVC's (premature ventricular contractions) Social History Tobacco Use Types Packs/Day Years [...] Sign Reading Time Taken Comments Blood Pressure 117/78 08/08/2022 10:34 AM CDT Pulse 75 08/08/2022 10:34 AM CDT Temperature - - Respiratory Rate 17 08/08/2022 10:34 AM CDT Oxygen Saturation 100% 08/08/2022 10:34 AM CDT Inhaled Oxygen Concentration - - Weight 142.4 kg (314 lb) 08/08/2022 10:34 AM CDT Height 167.6 cm (5' 6) 08/08/2022 10:34 AM CDT Body Mass Index 50.68 08/08/2022 10:34 AM CDT documented in this encounter Patient Instructions * Patient Instructions* Henny Rosales APRN ACCESS CLERK - 08/08/2022 10:30 AM CDT Call my nurse with any questions or concerns: [phone] *If you have concerns after hours, please call [phone], option 2 to speak with auditing control clerk Sane Nurse. It was nice meeting you today Billie. Speak with your steward/stewardess wine about heading back Jardiance and/or metformin to see if it helps with your insulin resistance. Consider either buying a Shark Punch mobile device or an Apple Watch to help monitor your rhythm. Your occasional palpitations most likely are PVCs which in reviewing your chart I see you have a history of. See us as needed. Thank you-Henny documented in this encounter Progress Notes * Henny Rosales APRN CNP - 08/08/2022 10:30 AM CDT HPI: Billie Connolly is a delightful 51-year-old woman that I am having the pleasure of meeting today. She has a history of symptomatic paroxysmal SVT along with history of symptomatic PVCs. She has been on metoprolol in the past with some relief. The episodes of PSVT have become more frequent. 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 She had normal sinus and AV preethi function without evidence of accessory pathway. Overall, patient states that she has been feeling much better. Her hearts not been racing, but she continues to have occasional premature beats. Other past medical history includes obesity with history of gastric sleeve, type 2 diabetes mellitus, hypothyroidism, MARVA with use of CPAP, asthma, GERD, chronic back pain, right hip pain, restless leg syndrome. Currently patient denies chest pain, orthopnea, PND, syncope, lower extremity edema. Right femoral access site is well-healed. She remains frustrated that she has difficulty losing weight. Her weighttoday is 314 pounds bringing her BMI to 50. She has been in [facility] for 9 months at max dose. She was previously on Jardiance and metformin both were stopped. She is followed by an steward/stewardess wine at [facility]. Last hemoglobin A1c is 7.7. Twelve-lead EKG today shows sinus rhythm at 71 bpm. No acute changes are noted. Echocardiogram 06/2018 showed a normal ejection fraction of 60 to 65%. Poor visualization was noted.Valves not well visualized. Plan: 1. Symptomatic SVT Typical AVNRT ablation without complications. Patient doing well. We will continue to follow us on an as-needed basis. Continues to have occasional palpitations. Most likely her PVCs which she has a history of. If the palpitations increase or she develops another arrhythmias she is to contact us and I would recommendeither a Zio patch. Patient has considered getting an Project Fixup Watch. 2. type 2 diabetes mellitus Patient most likely is insulin resistant. I understand her frustration. She is considering doing a conversion from a gastric sleeve to a Juan F-en-Y. I have encouraged her to talk to her steward/stewardess wine about adding back metformin and/or an SGLT2 inhibitor to see if this helps with her insulin resistance. 3. MARVA with use of CPAP No changes are warranted today. Patient will follow-up with us on an as-needed basis. Thank you forincluding us in her care. Today's clinic visit entailed: Review of the result(s) of each unique test - EKG I spent a total of 20 minutes on the day of the visit. Time spent by me doing chart review, history and exam, documentation and further activities per thenote Provider Link to [facility] Help Grid The level of medical decision making during this visit was of moderate complexity. Orders Placed This Encounter Procedures ??? EKG 12-lead complete w/read - Clinics (performed today) No orders of the defined types were placed in this encounter. Medications Discontinued During This Encounter Medication Reason ??? insulin aspart (NOVOLOG PEN) 100 UNIT/ML pen Alternate therapy ??? insulin aspart (NOVOLOG PEN) 100 UNIT/ML pen ??? insulin glargine (LANTUS PEN) 100 UNIT/ML pen ??? metoprolol succinate ER (TOPROL-XL) 50 MG 24 hr tablet Therapy completed (No AVS) ??? liraglutide (VICTOZA) 18 MG/3ML solution Alternate therapy ??? JARDIANCE 10 MG TABS tablet Encounter Diagnosis Name Primary? SVT (supraventricular tachycardia) (H) CURRENT MEDICATIONS: Current Outpatient Medications Medication Sig Dispense Refill ??? albuterol (PROAIR HFA/PROVENTIL HFA/VENTOLIN HFA) 108 (90 Base) MCG/ACT inhaler Inhale 2 puffs into the lungs every 6 hours as needed for shortness of breath / dyspnea or wheezing 18 g 0 ??? albuterol (PROVENTIL) (2.5 MG/3ML) 0.083% neb solution Take 1 vial (2.5 mg) by nebulization every 6 hours as needed for shortness of breath / dyspnea or wheezing 90 mL 0 ??? albuterol (PROVENTIL) (2.5 MG/3ML) 0.083% neb solution Take 1 vial (2.5 mg) by nebulization every 4 hours as needed for shortness of breath / dyspnea or wheezing 90 mL 1 ??? fluticasone (FLOVENT HFA) 110 MCG/ACT inhaler Inhale 2 puffs into the lungs 2 times daily as needed Takes only when sick ??? gabapentin (NEURONTIN) 600 MG tablet Take 600 mg by mouth At Bedtime ??? levothyroxine (SYNTHROID/LEVOTHROID) 200 MCG tablet Take 200 mcg by mouth At Bedtime 90 tablet 0 ??? MOUNJARO 2.5 MG/0.5ML SOPN INJECT 2.5MG (0.5ML) SUBCUTANEOUSLY ONCE A WEEK FOR 28 DAYS ??? rOPINIRole (REQUIP) 2 MG tablet Take 2 mg by mouth 2 times daily Take in afternoon and at bedtime ??? predniSONE (DELTASONE) 20 MG tablet Take two tablets (= 40mg) each day for 5 (five) days (Patient not taking: Reported on 08/08/2022) 10 tablet 0 ALLERGIES Allergies Allergen Reactions ??? Ibuprofen Other (See Comments) Gastric sleeve PAST MEDICAL HISTORY: Past Medical History: Diagnosis Date ??? Asthma ??? GERD (gastroesophageal reflux disease) ??? Hypercholesterolemia ??? Hypothyroidism ??? Mitral valve disease mild-possibly due to phen-fen ??? morbid obesity ??? Non-compliance missed meds, missed office visits ??? MARVA (obstructive sleep apnea) does not use cpap ??? Panic attacks ??? PVC (premature ventricular contraction) ??? Restless leg syndrome ??? SVT (supraventricular tachycardia) (H) 04/2018 cardiovert with adenosine most likely AVNRT PAST SURGICAL HISTORY: Past Surgical History: Procedure Laterality Date ??? EP ABLATION SVT N/A 04/09/2022 Procedure: Ablation Supraventricular Tachycardia; Surgeon: Roderick Morelos MD; Location: HEART CARDIAC FINANCIAL RISK MANAGER ??? EXCISE PILONIDAL CYST, SIMPLE ??? MASTOID SURGERY Right ? ? TONSILLECTOMY & ADENOIDECTOMY ??? TYMPANOMASTOIDECTOMY FAMILY HISTORY: No family history on file. SOCIAL HISTORY: Social History Socioeconomic History ??? Marital status: Tobacco Use ??? Smoking status: Never ??? Smokeless tobacco: Never Substance and Sexual Activity ??? Alcohol use: Yes Comment: socially ??? Drug use: No ??? Sexual activity: Yes Partners: Male Review of Systems: Skin: Eyes: ENT: Respiratory: Cardiovascular: Gastroenterology: Genitourinary: Musculoskeletal: Neurologic: Psychiatric: Heme/Lymph/Imm: Endocrine: Physical Exam: Vitals: BP 117/78 Pulse 75 Resp 17 Ht 1.676 m (5' 6) Wt 142.4 kg (314 lb) SpO2 100% BMI 50.68 kg/m?? Constitutional: cooperative, alert and oriented, well developed, well nourished, in no acute distress obese Skin: warm and dry to the touch, no apparent skin lesions or masses noted Head: normocephalic, no masses or lesions Eyes: pupils equal and round;conjunctivae and lids unremarkable Lymph: ENT: no pallor or cyanosis Neck: JVP normal Respiratory: normal breath sounds, clear to auscultation, normal A-P diameter, normal symmetry, normal respiratory excursion, no use of accessory muscles Cardiac: regular rhythm, normal S1/S2, no S3 or S4, apical impulse not displaced, no murmurs, gallops or rubs not assessed this visit GI: BS normoactive obese Extremities and Muscular Skeletal: no deformities, clubbing, cyanosis, erythema observed Neurological: no gross motor deficits Psych: Alert and Oriented x 3 CC Kieran Gooden MD [facility] [address] [facility] [address] [place] [address] documented in this encounter Plan of Treatment Upcoming Encounters Date Type Department Care Team (Late st Contact Info) Description 06/24/2023 12:30 PM CDT Virtual Visit [facility] Weight Management [address] [phone] Geri Loza PA-C [address] [place] [address] [phone] 06/24/2023 1:00 PM CDT Virtual Visit [facility] Weight Management [address] [phone] Sharee Negron, ÁNGEL [address] [place] [address] documented as of this encounter Procedures Procedure Name Priority Date/Time Associated Diagnosis Comments EKG 12-LEAD COMPLETE W/READ - CLINICS Routine 08/08/2022 12:19 PM CDT SVT (supraventricular tachycardia) (H) documented in this encounter Results * EKG 12-lead complete w/read - Clinics (performed today) (08/08/2022 12:19 PM CDT) Henny N Redlon SYSTEMS TESTER ACCESS CLERK ECG ORDERABLES documented in this encounter Visit Diagnoses Diagnosis SVT (supraventricular tachycardia)- Primary Other specified cardiac dysrhythmias PVC's (premature ventricular contractions) Other premature beats documented in this encounter Care Teams It Infrastructure Project Manager Relationship Specialty Start Date End Date Elvia YusufetErnestina PCP - General Family Practice 10/12/19 08/18/22 Roderick Morelos MD [address] [place], [place] [phone] Cardiovascular Disease 02/03/22 Magno Wood MD [address] [place] [address] Otolaryngology 02/21/22 Sophie Ocasio AuD [address] [place] [address] Hotel Maintenance Technician Audiology 02/21/22 Roderick Morelos MD [address] [place] [address] Assigned Heart and Vascular Provider 07/26/22 08/08/22 documented as of this encounter
--- OUTSIDE RECORDS SUMMARY | 2023-05-09 18:27 | XMS_ITS | Encounter Summary ---
Author Name Unknown Organization [facility] Address [address] [place] [address] Care Team Providers Care Lead Tinner Name Role Phone Barrington Agudelo PA-C Primary Care Provider + [phone] Magno Wood MD Unavailable [phone] Elvia Nugent [place] Primary Care Provider Unavailable Parth Ellis MD Unavailable [phone] Tati Ayala MD Unavailable [phone] Khris Butt MD Unavailable [phone] MorelosRoderick nunes MD Unavailable [phone] Roderick Morelos MD Unavailable [phone] Magno Wood MD Unavailable [phone] Sophie Ocasio Unavailable [phone] Parth Ellis MD Unavailable [phone] MorelosRoderick nunes MD Unavailable [phone] Henny Rosales APRN [employer] Unavailable [phone] [facility] Elvia Nugent [place] Primary Care Pr ovider Sharee Negron RD Unavailable Kaykay Duarte [employer]IC[employer]CE COMMISSION AGENT Primary Care Provider [phone] Christiane Rodríguez MD Unavailable [phone] Luis A Escobedo MD Unavailable [phone] Chely Fernandez PA-C Unavailable [phone] Cadena Jingjodi Richards APRN [facility] Unavailable + [phone] Radha Lopez [facility] Unavailable + [phone] Luis A Escobedo MD Unavailable [phone] Geri Loza PA-C Unavailable [phone] Encounter Details Date Type Department Care Team (Late st Contact Info) Description 08/21/2011 Office Visit-[facility] Heart [address] [phone] Dane Rosa MD Social History Tobacco Use Types Packs/Day Years Used Date Smoking Tobacco: Never Assessed Sex and Gender Information Value Date Recorded Sex Assigned at Not on file Gender Identity Not on file Sexual Orientation Not on file documented as of this encounter Progress Notes * Dane Rosa MD - 08/25/2011 9:18 AM CDT Progress Note Created by: Dane Rsoa M.D. DATE: 08/21/2011 JIMBO OWENS DATE OF : 1970 AGE: [age] years old Referring Physician: BARRINGTON LARA Referring Clinic: [facility] CURRENT DIAGNOSES 1. - Hypercholesterolemia, 272.0 2. - PVC, 427.89 3. - Shortness of Breath, 786.05 4. CAD, 414.00 5. Mitral valve disorders, 424.0 ALLERGIES NKA MEDICATIONS (prior to changes made today) 1. Asmanex Twisthaler 220 mcg (14 doses) Aerosol Powdr Breath Activated, PRN 2. atenolol 50 mg Tablet, 1 p.o. daily 3. Crestor 40 mg Tablet, 1 p.o. daily 4. Synthroid 175 mcg Tablet, 1 p.o. daily, additonal 1/2 tab once weekly CHIEF COMPLAINTS HISTORY OF PRESENT ILLNESS I had the pleasure of seeing Ms. Owens for evaluation of symptomatic PVCs. This is a 40-year-old lady who has been seen by Dr. Li for the last 10 years or so. The patient had recurrent palpitations that were found to be due to infrequent PVCs. This was confirmed by EKG event monitor in the past. She at some point took fen-phen for obesity. At some point there was suspicion of mitral valve damage but the recent echocardiography indicated no evidence of mitral valve disease. Symptomatically, the patient has been bothered by random occurrence of palpitations. She stated that she could have days during which she has no palpitations at all. On other days she would have constant palpitations f or hours. She typically takes atenolol p.r.n. when she feels palpitations. However, recently atenolol seems to be not much help. She is known to have asthma but the atenolol seems to have no adverse effect to her asthma at the current dose. She has not had any syncope or near-syncope. She is known to have severe hyperlipidemia and hypothyroidism. She was taking Crestor 40 mg q.d. but discontinued the medicine because of affordability. She has a strong family history of early coronary artery disease. A recent lipid profile in April showed a total cholesterol of 287, with LDL of 197. On examination the blood pressure was 110/64, body weight 247 pounds, and heart rate 60 beats per minute. She looked severely obese. The head and neck examination was unremarkable. The lungs were clear. The cardiac rhythm was regular and the heart sounds were normal without murmur. The abdominal exa mination showed no hepatomegaly. There was no pedal edema. The EKG today showed normal sinus rhythm. PAST HISTORY Past Medical Illnesses: hyperlipidemia, hypothyroidism, LBP Past Cardiac Illnesses: hx mild thickening MV-?Fen-phen, palpitations, PVCs Surgeries/Procedures - General: mastoid surgery Cardiology Procedures-NonInvasive: echocardiogram 06/22, 12/28, myocardial perfusion imaging (Nuclear) Oct 2004, May 2009, event monitor February 2006 PMHx Echo Results: 12/2007 Mitral valve normal in structure and function, normal EF Left Ventricular Ejection Fraction: 70% per nuc , EF<GT>55% by nuclear study -May 2009 Nuclear Results: May 2009- no evidence of ischemia LVEF of 66% documented via nuclear study on 06/06/2009 FAMILY HISTORY: Father - pacemaker; Mother - Age 34, cancer-breast; Half-Brother - [place]; Sister 1 - CAD; SOCIAL HISTORY Alcohol Use - socially, wine, mixed drinks and (3x/yr); Smoking - never smoked; Diet - weight watchers; Exercise - some exercise; Seat Belt Use - always; 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 EYES denies diplopia, history of glaucoma or visual field defects. EARS, NOSE, THROAT, MOUTH denies any hearing loss, epistaxis, hoarseness or difficulty speaking. RESPIRATORY cough, in am CARDIOVASCULAR palpitations, dizziness, light headedness ABDOMINAL denies ulcer disease, hematochezia or melena. MUSCULOSKELETAL joint pain elbow(s) knee(s) NEUROLOGICAL headaches, occ. PSYCHIATRIC denies any history of depression, substance abuse or change in cognitive functions. ENDOCRINE denies any history of thyroid disease or diabetes mellitus. HEMATOLOGICAL/IMMUNOLOGIC denies any food allergies, seasonal allergies, bleeding disorders. PHYSICAL EXAMINATION VITAL SIGNS: Blood Pressure: 110/64Sitting, Right arm, regular cuff Pulse- 60.00/min. Weight- 247.00 lbs. Height- 67 BMI Measurement: 38 CONSTITUTIONAL cooperative, alert and oriented,well developed, well nourished, in no acute distress. SKIN warm and dry to touch, no apparent skin lesions, or masses noted. HEAD normocephalic, atraumatic EYES Pupils equal and round, conjunctivae and lids unremarkable, sclera white, no xanthalasma ENT no pallor or cyanosis, dentition good NECK carotid pulses are full and equal bilaterally, JVP normal, no carotid bruit, no thyromegaly CHEST normal symmetry, no tenderness to palpation, normal respiratory excursion, no intercostal retraction, no use of accessory muscles, clear to auscultation and percussion. CARDIAC regular rhythm, S1 normal, S2 normal, No S3 or S4, Apical impulse not displaced, no murmurs, gallops or rubs detected. ABDOMEN abdomen soft, bowel sounds normoactive, no masses, no hepatosplenomegaly, non- tender, no bruits, obese PERIPHERAL PULSES pulses full and equal in all extremities, no bruits auscultated. EXTREMITIES & BACK no deformities, clubbing, cyanosis, erythema or edema observed. There are no spinal abnormalities noted. Normal muscle strength and tone. NEUROLOGICAL no gross motor deficits noted, affect appropriate, oriented to time, person and place. MEDICATIONS UPDATED/STARTED TODAY: atenolol 50 mg Tablet, 1 p.o. daily, #90 (Ninety) Crestor 40 mg Tablet, 1 p.o. daily, #90 (Ninety) MEDICATIONS REFILLED/STOPPED TODAY: atenolol 50 mg Tablet 1-2 tabs as needed for palpitations 30 Physician Order and Lipitor 80 mg Tablet 1 p.o. qHS #90 (Ninety) Physician Order ASSESSMENT/RECOMMENDATIONS: This 40-year-old lady has infrequent but quite symptomatic PVCs. She has no apparent structural heart disease. PVC ablation would be challenging because of the rare occurrence of PVCs which will make mapping almost impossible. Based on her symptom severity, I have recommended her to take atenolol 50 mg q.d. with possibly another dose if she has severe symptoms from PVCs. I plan to see her for followup in about six months. If she does not do well with the current strategy I may consider mexiletine or even low dose of flecainide. As for her hyperlipidemia, I put her back on Crestor 40 mg q.d. She was given samples of Crestor, as well as a savings card. Hopefully, she will be able to keep taking Crestor for her hyperlipidemia. It is my pleasure to participate in the care of this patient. If you have any questions, please do not hesitate to contact me. TODAYS ORDERS 1. Return Visit 6 months 2. 12 Lead EKG 6 months Dane Rosa M.D. documented in this encounter Plan of Treatment Upcoming Encounters Date Type Department Care Team (Late st Contact Info) Description 06/24/2023 12:30 PM CDT Virtual Visit [facility] [address] [phone] Geri Loza PA-C [address] [place] [address] [phone] 06/24/2023 1:00 PM CDT Virtual Visit [facility] [address] [phone] Sharee Negron, ÁNGEL [address] [place] [address] [phone] documented as of this encounter Visit Diagnoses Not on filedocumented in this encounter Additional Health Concerns Infection Onset Date Last Indicated Resolved Time Rule Out COVID-19 03/19/2020 03/19/2020 03/19/2020 6:22 PM CAMPAIGN MANAGEMENT SENIOR MANAGER COVID-19 03/19/2020 03/19/2020 04/09/2020 11:3 9 PM CAMPAIGN MANAGEMENT SENIOR MANAGER Rule Out COVID-19 06/19/2021 06/19/2021 06/19/2021 1:37 AM CDT Rule Out COVID-19 10/29/2021 10/29/2021 10/29/2021 1:07 AM CDT documented as of this encounter Care Teams Lead Tinner Relationship Specialty Start Date End Date Barrington Agudelo PA-C [facility] [address] [place], [place] [phone] PCP - General 05/04/12 10/11/19 Ernestina Martini [address] [facility] [address] [place] [address] PCP - General Family Practice 10/12/19 08/18/22 [facility] [place] [address] [place] [address] PCP - General 08/19/22 10/14/22 Kaykay Duarte, A[employer]ICULTURAL PRODUCE COMMISSION AGENT [address] [place] [address] PCP - General 10/15/22 Magno Wood MD [address] [facility] [address] [place] [address] Otolaryngology 05/29/15 08/02/17 Parth Ellis MD [address] [place] [address] Assigned Heart and Vascular Provider 01/13/20 12/13/21 Tati Ayala MD [address] [place] [address] Assigned Endocrinology Provider 01/13/20 12/29/20 Khris Butt MD [address] [place] [address] Assigned Heart and Vascular Provider 12/14/21 02/14/22 Roderick Morelos MD [address] [place] [address] Cardiovascular Disease 02/03/22 Roderick Morelos MD [address] [place] [address] Assigned Heart and Vascular Provider 02/15/22 07/18/22 Magno Wood MD [address] [place] [address] [phone] Otolaryngology 02/21/22 Sophie Ocasio AuD [address] [place] [address] [phone] Trailer Steerer Audiology 02/21/22 Parth Ellis MD [address] [place] 6[address] Assigned Heart and Vascular Provider 07/19/22 07/25/22 Roderick Morelos MD [address] [place] 442175 Assigned Heart and Vascular Provider 07/26/22 08/08/22 Henny Rosales APRN [employer] [address] [place] [phone] Assigned Heart and Vascular Provider 08/09/[address] [place] [address] [phone] Registered Dietitian Dietitian, Registered 09/02/22 Christiane Rodríguez MD [address] [place] [address] [address] [place], [place] [phone] Otolaryngology 11/12/22 Luis A Escobedo MD [address] [place] [address] [phone] Assigned Surgical Provider 11/01/22 11/28/22 Chely Fernandez PA-C [address] [place] [address] [phone] Assigned Surgical Provider 11/29/22 02/06/23 Jing Cadena, [employer] HEADING PINNER [address] [place] [address] [phone] Clinical Nurse Specialist Anesthesiology 01/15/23 Radha Lopez, [facility] [address] [place] [address] [phone] Pharmacist Pharmacist 01/16/23 Luis A Escobedo MD [address] [place] [address] [phone] Assigned Surgical Provider 02/07/23 04/15/23 Geri Loza PA-C [address] [place] [address] [phone] Assigned Surgical Provider 04/16/23 documented as of this encounter
--- OUTSIDE RECORDS SUMMARY | 2023-05-09 18:27 | XMS_ITS | Encounter Summary ---
Author Name Unknown Organization [facility] Address [address] [place] [address] Care Team [facility]iders [facility] Name Role Phone Edda Agudelo PA-C Primary Care Provider + [phone] Magno Wood MD Unavailable [phone] Elvia Nugent [place] Primary Care Provider Unavailable Parth Ellis MD Unavailable [phone] Tati Ayala MD Unavailable [phone] Khris Butt MD Unavailable [phone] MorelosRoderick nunes MD Unavailable [phone] Roderick Morelos MD Unavailable Magno Wood MD Unavailable [phone] Sophie Ocasio Unavailable [phone] Parth Ellis MD Unavailable [phone] MorelosRoderick nunes MD Unavailable [phone] Henny Rosales APRN GOAL UMPIRE Unavailable [phone] [facility] Elvia Nugent [place] Primary Care Pr ovider Sharee Negron RD Unavailable Kaykay Duarte DOOR PULLER Primary Care Provider [phone] Christiane Rodríguez MD Unavailable [phone] Luis A Escobedo MD Unavailable + [phone] Chely Fernandez PA-C Unavailable [phone] Jing Cadena APRN MILK PICKUP DRIVER Unavailable + [phone] Radha Lopez [facility] Unavailable [phone] Luis A Escobedo MD Unavailable + [phone] Geri Loza PA-C Unavailable [phone] Encounter Details Date Type Department Care Team (Late st Contact Info) Description 06/13/2009 Office Visit-[facility] [address] [place] [phone] Lauri Canada APRN GOAL UMPIRE NO INFO AVAILABLE 01/09/2022 Social History Tobacco Use Types Packs/Day Years Used Date Smoking Tobacco: Never Assessed Sex and Gender Information Value Date Recorded Sex Assigned at Not on file Gender Identity Not on file Sexual Orientation Not on file documented as of this encounter Progress Notes * Lauri Canada M - 07/13/2009 10:04 AM CDT Progress Note Created by: Lauri Canada, N.P. DATE: 06/13/2009 JIMBO OWENS DATE OF : 1970 AGE: [age] years old Referring Physician: LUIS A WORRELL Referring Clinic: [facility] CURRENT DIAGNOSES 1. - Hypercholesterolemia, 272.0 2. Mitral valve disorders, 424.0 3. - PVC, 427.89 4. CAD, 414.00 5. - Shortness of Breath, 786.05 ALLERGIES NKA MEDICATIONS (prior to changes made today) 1. Asmanex Twisthaler 220 mcg (14 doses) Aerosol Powdr Breath Activa, 1 p.o. daily 2. Aspirin 81 MgTablet, 1 p.o. daily 3. Synthroid 175 mcg Tablet, 1 p.o. daily 4. Atenolol 50 Mg Tablet, PRN 5. Crestor 40 mg Tablet, 1 p.o. daily 6. Protonix 40 Mg Tablet, Delayed Release (e.c.), 1 p.o. daily CHIEF COMPLAINTS Review lab results and dyslipidemia HISTORY OF PRESENT ILLNESS Jimbo Owens is a 38-year-old female who had last seen Dr. Li in January 2008. At that point, Dr. Li suggested Crestor. However, she saw me in March 2009 and had not taken Crestor. She stated that this was too expensive and is now able to afford this medication, which I started at her last visit at 20 mg a day. Her LDL prior to starting this was elevated at 219. HDL was 53. Normal triglycerides. 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 She also has a very strong family history of premature heart disease in her brother and father both starting in their 40s. She has a history of phen-fen with mitral valve changes, which are now mild by echo. She does not need another echo for a number of years according to Dr. Li's last note. She has palpitations, which have been fairly well controlled with beta-blockers. These have been identified to be PVCs. Her thyroid is now well controlled. She has been participating in [employer] and has lost 20 pounds and has kept that off. She has now plateaued. She is quite open about the factthat she has been snacking a bit more. We had a discussion today about the need for continued weight loss to optimize her lipid profile. The last time that I saw her, she was denying any chest discomfort but was noting more palpitationsand felt like she was under more stress. She was also fearful that she may have caused more harm interms of plaque progression by not being on her antilipid therapy. A nuclear stress test was performed recently showing normal perfusion and a normal ejection fraction. 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 On Crestor 20 mg a day (which she misses a dose every third day), her labs have dramatically improved with an LDL of 138. HDL was 54. Cholesterol was 216. Triglycerides were 122. She has no myalgias on the Crestor. Her blood pressure is reasonable. She has no complaints today. Her palpitations per her report are tolerable. PAST HISTORY Past Medical Illnesses: hyperlipidemia, hypothyroidism Past Cardiac Illnesses: hx mild thickening MV-?Fen-phen, palpitations, PVCs Surgeries/Procedures - General: mastoid surgery Cardiology Procedures-Noninvasive: echocardiogram June 2001, myocardial perfusion imaging (Nuclear) Oct 2004, May 2009, event monitorDecember 2005, echocardiogram Dec 2007 PMx Echo Results: 12/2007 Mitral valve normal in structure and function, normal EF Left Ventricular Ejection Fraction: 70% per nuc , EF<GT>55% by nuclear study -May 2009 Nuclear Results: May 2009- no evidence of ischemia FAMILY HISTORY: Father - pacemaker; Mother - Age 34, cancer-breast; Half-Brother - PR; Sister 1 - CAD; SOCIAL HISTORY Alcohol Use - socially, wine, mixed drinks and (3x/yr); Smoking - never smoked; Diet - weight Reduction Diet and caffeine use-1-2 per day; Exercise - some exercise, swimming and walking; Seat Belt Use - always; 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 EYES denies diplopia, history of glaucoma or visual field defects. EARS, NOSE, THROAT, MOUTH denies any hearing loss, epistaxis, hoarseness or difficulty speaking. RESPIRATORY denies dyspnea, cough, wheezing or hemoptysis. CARDIOVASCULAR palpitations ABDOMINAL denies ulcer disease, hematochezia or melena. MUSCULOSKELETAL history of generalized arthritis, back problems NEUROLOGICAL denies any history of recurrent strokes, headaches, TIA, or seizure disorder. PSYCHIATRIC anxiety, stress ENDOCRINE denies any history of thyroid disease or diabetes mellitus. HEMATOLOGICAL/IMMUNOLOGIC denies any food allergies, seasonal allergies, bleeding disorders. PHYSICAL EXAMINATION VITAL SIGNS: Blood Pressure: 110/64Sitting, Left arm, large cuff Pulse- 68.00/min. Weight- 222.00 lbs. Height- 67.00 Temperature- .00 CONSTITUTIONAL cooperative, alert and oriented,well developed, well [...] time, person and place. MEDICATIONS UPDATED/STARTED TODAY: Crestor 40 mg Tablet, 1 p.o. daily, #90 Protonix 40 Mg Tablet, Delayed Release (e.c.), 1 p.o. daily, #-1 MEDICATIONS REFILLED/STOPPED TODAY: Protonix 40 mg Tablet, Delayed Release (E.C.) 1 p.o. q.d. 0 Directions Changed- No Abbrvs and Crestor 20 mg Tablet 1 p.o. daily #90 Physician Order IMPRESSIONS/PLAN 1. Strong family history of coronary artery disease with a normal nuclear stress test in spite of the fact that she has frequent PVCs. Her PVCs are under control with p.r.n atenolol. She has normal LV function. 2. Family history of familial dyslipidemia. Her lipids are improving on Crestor, but sheis missing a dose every third day. I talked to her about increasing to 40 mg of Crestor daily in the hopes that she will target closer to an LDL of 100. Even if she misses doses, we have a stronger likelihood of obtaining a goal at that level. She will increase this as I pointed out and will recheck her labs in three months. She is due to see Dr. Li at that point for a follow up visit. 3. History of phen- fen use with some mitral valve issues, which have improved. She does not need an echo for a number of years. I highly encouraged her to continue with her weight loss and exercise program. We will look forward to seeing her back in August. TODAYS ORDERS 1. F/U with Reji Li MD 3 months-MUST BE ANDRE-NOT DOOR PULLER 2. Lipid profile/ALT 3 months Lauri Canada, N.P. documented in this encounter Plan of Treatment Upcoming Encounters Date Type Department Care Team (Late st Contact Info) Description 06/24/2023 12:30 PM CDT Virtual Visit [facility] [address] [place] [address] Geri Loza PA-C [address] [place] [address] 06/24/2023 1:00 PM CDT Virtual Visit [facility] [place] [address] [facility] 4th [place] [phone] Sharee Negron, RD [address] [place] [address] documented as of this encounter Visit Diagnoses Not on filedocumented in this encounter Additional Health Concerns Infection Onset Date Last Indicated Resolved Time Rule Out COVID-19 03/19/2020 03/19/2020 03/19/2020 6:22 PM MICA BUILDER COVID-19 03/19/2020 03/19/2020 04/09/2020 11:3 9 PM MICA BUILDER Rule Out COVID-19 06/19/2021 06/19/2021 06/19/2021 1:37 AM CDT Rule Out COVID-19 10/29/2021 10/29/2021 10/29/2021 1:07 AM CDT documented as of this encounter Care Teams Hospital Pharmacy Director Relationship Specialty Start Date End Date Edda Agudelo PAEddaC [facility] [address] [id number] PCP - General 05/04/12 10/11/19 Ernestina Martini [address] [address] PCP - General Family Practice 10/12/19 08/18/22 [facility] Elvia [place] [address] [place] [address] PCP - General 08/19/22 10/14/22 Kaykay Duarte, DOOR PULLER [address] [place], [place] [phone] PCP - General 10/15/22 Magno Wood MD [address] [address] Otolaryngology 05/29/15 08/02/17 Parth Ellis MD [address] [place] [address] Assigned Heart and Vascular Provider 01/13/20 12/13/21 Tati Ayala MD [address] [place], [place] 284600 Assigned Endocrinology Provider 01/13/20 12/29/20 Khris Butt MD [address] [facility] [address] [place] [address] Assigned Heart and Vascular Provider 12/14/21 02/14/22 Roderick Morelos MD [address] [place] [address] Cardiovascular Disease 02/03/22 Roderick Morelos MD [address] [place] [address] Assigned Heart and Vascular Provider 02/15/22 07/18/22 Magno Wood MD [address] [place] [address] [address] [place] [address] Otolaryngology 02/21/22 Sophie Ocasio AuD [address] [place] [address] Auto Salvage Worker Audiology 02/21/22 Parth Ellis MD [address] [place] [address] Assigned Heart and Vascular Provider 07/19/22 07/25/22 Roderick Morelos MD [address] [place] [address] Assigned Heart and Vascular Provider 07/26/22 08/08/22 Henny Rosales, HOTBED TRANSFER OPERATOR GOAL UMPIRE [address] [place] [phone] Assigned Heart and Vascular Provider 08/09/[address] [place], [place] 113[address] Registered Dietitian Dietitian, Registered 09/02/22 Christiane Rodríguez MD 420 [facility] [address] [place], [place] [address]47[address] Otolaryngology 11/12/22 Luis A Escobedo MD 420 [facility] [address] [place], [place] [address]145 Assigned Surgical Provider 11/01/22 11/28/22 Chely Fernandez PA-C [address] [place], [place] [phone] Assigned Surgical Provider 11/29/22 02/06/23 Jing Cadena, HOTBED TRANSFER OPERATOR MILK PICKUP DRIVER 420 [facility] [address] [place], [place] [address]325 Clinical Nurse Specialist Anesthesiology 01/15/23 Radha Lopez [facility] [address] [place] [address] Pharmacist Pharmacist 01/16/23 Luis A Escobedo MD [address] [place] [address] 500245 Assigned Surgical Provider 02/07/23 04/15/23 Geri Loza PA-C [address] [place] [address] [phone] Assigned Surgical Provider 04/16/23 documented as of this encounter
--- OUTSIDE RECORDS SUMMARY | 2023-05-09 18:27 | XMS_ITS | Encounter Summary ---
Author Name Unknown Organization [facility] Address [address] [place] [address] Care Team Providers Care Irrigationist Name Role Phone [facility] Provider Unavailable Parth Ellis MD Unavailable [phone] Tati Ayala MD Unavailable [phone] Khris Butt MD Unavailable [phone] MorelosRoderick nunes MD Unavailable Roderick Morelos MD Unavailable [phone] Magno Wood MD Unavailable [phone] Sophie Ocasio Unavailable [phone] Parth Ellis MD Unavailable [phone] Roderick Morelos MD Unavailable [phone] Henny Rosales APRN MILLER HEAD ASSISTANT WET PROCESS Unavailable [phone] [facility] Jovanna Clio Primary Care Pr ovider Sharee Negron RD Unavailable Kaykay Duarte PIPE JOINTS SUPERVISOR Primary Care Provider [phone] Christiane Rodríguez MD Unavailable [phone] Luis A Escobedo MD Unavailable [phone] Chely Fernandez PA-C Unavailable +[phone] Jing Cadena Susie [facility] Unavailable + [phone] Jessica Radhajessica Marte [facility] Unavailable Luis A Escobedo MD Unavailable [phone] Geri Loza PA-C Unavailable [phone] Encounter Details Date Type Department Care Team (Late st Contact Info) Description 10/18/2020 Documentation Only INTERFACED REPORT Unknown, Provider Social History Tobacco Use Types Packs/Day [...] Exposure Response Date Recorded In the last month, have you been in contact with someone who was confirmed or suspected to have Coronavirus / COVID-19? No / Unsure 10/18/2020 11:39 PM CDT documented as of this encounter Plan of Treatment Upcoming Encounters Date Type Department Care Team (Late st Contact Info) Description 06/24/2023 12:30 PM CDT Virtual Visit [facility] [address] [phone] Geri Loza PA-C [address] [place] [address] [phone] 06/24/2023 1:00 PM CDT Virtual Visit [facility] [address] [address] Sharee Negron, ÁNGEL [address] [place] [phone] documented as of this encounter Visit Diagnoses Not on filedocumented in this encounter Additional Health Concerns Infection Onset Date Last Indicated Resolved Time Rule Out COVID-19 06/19/2021 06/19/2021 06/19/2021 1:37 AM CDT Rule Out COVID-19 10/29/2021 10/29/2021 10/29/2021 1:07 AM CDT documented as of this encounter Care Teams Irrigationist Relationship Specialty Start Date End Date Ernestina Martini PCP - General Family Practice 10/12/19 08/18/22 [place] [address] [facility] [place] [address] PCP - General 08/19/22 10/14/22 Kaykay Duarte PIPE JOINTS SUPERVISOR [address] [place] [address] PCP - General 10/15/22 Parth Ellis MD [address] [place] [address] Assigned Heart and Vascular Provider 01/13/20 12/13/21 Tati Ayala MD [address] [place], [place] 4[address] Assigned Endocrinology Provider 01/13/20 12/29/20 Khris Butt MD [address] [place] [address] Assigned Heart and Vascular Provider 12/14/21 02/14/22 Roderick Morelos MD [address] [place] [address] Cardiovascular Disease 02/03/22 Roderick Morelos MD [address] [place] [address] Assigned Heart and Vascular Provider 02/15/22 07/18/22 Magno Wood MD [address] [place] [address] 629885 Otolaryngology 02/21/22 Sophie Ocasio AuD [address] [place] [address] [phone] Shipping Supervisor Audiology 02/21/22 Parth Ellis MD [address] [place], [place] 0[address] Assigned Heart and Vascular Provider 07/19/22 07/25/22 Roderick Morelos MD [address] [place], [place] 2279[address] Assigned Heart and Vascular Provider 07/26/22 08/08/22 Henny Rosales APRN MILLER HEAD ASSISTANT WET PROCESS [address] [place] [address] Assigned Heart and Vascular Provider 08/09/[address] [place] [address] [phone] Registered Dietitian Dietitian, Registered 09/02/22 Christiane Rodríguez MD [address] [place] [address] [phone] Otolaryngology 11/12/22 Luis A Escobedo MD [address] [place] [address] [phone] Assigned Surgical Provider 11/01/22 11/28/22 Chely Fernandez PA-C [address] [place] [address] [phone] Assigned Surgical Provider 11/29/22 02/06/23 Jing Cadena, RESIDENTIAL THERAPIST CHIP TESTER [address] [place] [address] [phone] Clinical Nurse Specialist Anesthesiology 01/15/23 Radha Lopez, [facility] [address] [place] [address]195 Pharmacist Pharmacist 01/16/23 Luis A Escobedo MD [address] [place] [address] [phone] Assigned Surgical Provider 02/07/23 04/15/23 Geri Loza PA-C [address] [place] [address] 024705 Assigned Surgical Provider 04/16/23 documented as of this encounter
--- OUTSIDE RECORDS SUMMARY | 2023-05-09 18:27 | XMS_ITS | Encounter Summary ---
Author Name Unknown Organization [place] Address [address] [place] [address] Care Team Providers Care Palm Gatherer Name Role Phone Edda Agudelo PA-C Primary Care Provider + [phone] Magno Wood MD Unavailable [phone] Elvia Nugent [place] Primary Care Provider Unavailable Parth Ellis MD Unavailable [phone] Tati Ayala MD Unavailable [phone] Khris Butt MD Unavailable [phone] MorelosRoderick nunes MD Unavailable [phone] Roderick Morelos MD Unavailable [phone] Magno Wood MD Unavailable [phone] Sophie Ocasio Unavailable [phone] Parth Ellis MD Unavailable +[phone] MorelosRoderick nunes MD Unavailable +[phone] Henny Rosales APRN DIABETES SPECIALIST Unavailable [phone] [facility] Elvia Nugent [place] Primary Care Pr ovider Sharee Negron RD Unavailable Kaykay Duarte PAPER CUTTER Primary Care Provider [phone] Christiane Rodríguez MD Unavailable [phone] Luis A Escobedo MD Unavailable + [phone] Chely Fernandez PA-C Unavailable +[phone] Jing Cadena APRN [facility] Unavailable + [phone] Radha Lopez Estuardo [facility] Unavailable [phone] Luis A Escobedo MD Unavailable + [phone] Geri Loza PA-C Unavailable +[phone] Encounter Details Date Type Department Care Team (Late st Contact Info) Description 10/20/2001 Office Visit-[facility] Heart [place] [address] [place] [address] Unknown, DoctorMD Social History Tobacco Use Types Packs/Day Years Used Date Smoking Tobacco: Never Assessed Sex and Gender Information Value Date Recorded Sex Assigned at Not on file Gender Identity Not on file Sexual Orientation Not on file documented as of this encounter Progress Notes * Unknown, MD Angelica - 01/30/2004 3:21 PM CST DATE: 10/20/2001 JIMBO OWENS DATE OF : 1970 AGE: [age] years old Referring Physician: BOY WATSON CURRENT DIAGNOSES 1. - Syncope, 780.2 2. Chart Request, 000 3. - Hypercholesterolemia, 272.0 4. Mitral valve disorders, 424.0 5. - PVC, 427.89 ALLERGIES NKA MEDICATIONS 1. Atenolol 25 mg, 1 p.o. q.d. 2. Synthroid 0.15 mg, 1.5 qd 3. Zocor 20 mg, 1 p.o. q.d. CHIEF COMPLAINTS Followup of Palpitations HISTORY OF PRESENT ILLNESS Mrs. Owens is here because she felt so bad that she went to the emergency room three days ago feeling nervous, jittery and dizzy. She was noticing a tremendous amount of irregularity of her cardiac rhythm but after waiting in the emergency room for a while, her symptoms seemed to subside and she left without being seen. She now gets these episodes where she feels almost like she is doing to faint several times a week. She also has a chronic daily occurrence of palpitations which has been noticedin years past when she was . These palpitations are driving her to the point where she worries so much that she is going to because she has 3 young children. She does have mild thickeningof the mitral valve with mild mitral insufficiency as previously demonstrated on multiple echoes. There has been no other suspicion for any other cardiac disease. She has used Fen-Phen in the past and she is also very concerned about massive weight gain. She wants to know whether weight gain can becausing some of her problems. She does have thyroid disease for which she is being followed by Dr. Watson. She is not having any chest discomfort. She has never actually passed out totally. There is no history of sudden cardiac . Her previous echoes have really shown no significant ventricular dysfunction. PAST HISTORY Past Medical Illnesses: hyperlipidemia, hypothyroidism Past Cardiac Illnesses: mildly thickened mitral valve-probable Fen-phen Surgical Procedures: mastoid surgery Cardiology Procedures-Noninvasive: echocardiogram May 1997 FAMILY HISTORY: Father - palpitaions; CARDIAC RISK FACTORS Tobacco Abuse: negative; Hyperlipidemia: positive; Hypertension: negative; Diabetes Mellitus: negative; Obesity:positive; Sedentary Life Style:positive; Age:negative; Menopausal:negative SOCIAL HISTORY Alcohol Use - denies drinking; Smoking - never smoked; Diet - regular diet without modifications; Exercise - some exercise; 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 EYES denies diplopia, history of glaucoma or visual field defects. EARS, NOSE, THROAT, MOUTH denies any hearing loss, epistaxis, hoarseness or difficulty speaking. RESPIRATORY dyspnea CARDIOVASCULAR please review HPI ABDOMINAL denies ulcer disease, hematochezia or melena. MUSCULOSKELETAL pain, chronic back pain NEUROLOGICAL denies any history of recurrent strokes, TIA, or seizure disorder. PSYCHIATRIC anxiety ENDOCRINE denies any history of weight change, heat/cold intolerance, polydipsia, or polyuria HEMATOLOGICAL/IMMUNOLOGIC denies any food allergies, seasonal allergies, bleeding disorders. IMPRESSION/PLAN IMPRESSION: 1. Frequent PVCs that are present even by physical exam. 2. Episodes of nausea with what she describes as near-syncope which I suspect is partly related to panic and anxiety. I have to rule out major arrhythmias. RECOMMENDATIONS: 1. She was given an event recorder to try to capture what these events are. 2. We talked about the fact that antiarrhythmic therapy is typically very poor in terms of eliminating arrhythmias. Dr. Li has also talked to her about these problems in meetings past. She has already been back on her atenolol and feels that the atenolol is not working very well. I would be reluctant to send her to ablation therapy unless we can clearly document some sort of major supraventricular or ventricular arrhythmias beyond the isolated PVCs that we already know about. I will make further recommendations after she records several episodes by the event monitor. TODAYS ORDERS 1. Event Recorder Today Santiago Cam M.D. Document electronically signed by : Santiago Cam M.D. Date : 01/30/2004 Time : 3:21:53 PM documented in this encounter Plan of Treatment Upcoming Encounters Date Type Department Care Team (Late st Contact Info) Description 06/24/2023 12:30 PM CDT Virtual Visit [facility] [address] [phone] Geri Loza PA-C [address] [place] [address] [phone] 06/24/2023 1:00 PM CDT Virtual Visit [facility] [address] [phone] Sharee Negron, RD [address] [place] [address] [phone] documented as of this encounter Visit Diagnoses Not on filedocumented in this encounter Additional Health Concerns Infection Onset Date Last Indicated Resolved Time Rule Out COVID-19 03/19/2020 03/19/2020 03/19/2020 6:22 PM INDIAN NANNY COVID-19 03/19/2020 03/19/2020 04/09/2020 11:3 9 PM INDIAN NANNY Rule Out COVID-19 06/19/2021 06/19/2021 06/19/2021 1:37 AM CDT Rule Out COVID-19 10/29/2021 10/29/2021 10/29/2021 1:07 AM CDT documented as of this encounter Care Teams Palm Gatherer Relationship Specialty Start Date End Date Edda Agudelo PA-C [facility] [address] [address] PCP - General 05/04/12 10/11/19 Ernestina Martini [address] [facility] [address] [place] [address] PCP - General Family Practice 10/12/19 08/18/22 [facility], [place] [address] [facility] [place] [address] PCP - General 08/19/22 10/14/22 [place] [address] [place] [address] PCP - General 10/15/22 Magno Wood MD [address] [facility] [address] [place], [place] 987355 Otolaryngology 05/29/15 08/02/17 Parth Ellsi MD [address] [place] [phone] Assigned Heart and Vascular Provider 01/13/20 12/13/21 Tati Ayala MD [address] [place], [place] 170990 Assigned Endocrinology Provider 01/13/20 12/29/20 Khris Butt MD [address] [place] [phone] Assigned Heart and Vascular Provider 12/14/21 02/14/22 Roderick Morelos MD [address] [place] [phone] Cardiovascular Disease 02/03/22 Roderick Morelos MD [address] [place] 345195 Assigned Heart and Vascular Provider 02/15/22 07/18/22 Magno Wood MD [address] [place] [address] [phone] Otolaryngology 02/21/22 Sophie Ocasio AuD [address] [place] [address] [id number] Material Lister Audiology 02/21/22 Parth Ellis MD [address] [place], [place] 283475 Assigned Heart and Vascular Provider 07/19/22 07/25/22 Roderick Morelos MD [address] [place], [place] 757505 Assigned Heart and Vascular Provider 07/26/22 08/08/22 Henny Rosales APRN DIABETES SPECIALIST [address] [place] [phone] Assigned Heart and Vascular Provider 08/09/[address] [place] [address] [phone] Registered Dietitian Dietitian, Registered 09/02/22 Christiane Rodríguez MD [address] [place] [address] 413505 Otolaryngology 11/12/22 Luis A Escobedo MD [address] [place] [address] [phone] Assigned Surgical Provider 11/01/22 11/28/22 Chely Fernandez PA-C [address] [place] [address] [phone] Assigned Surgical Provider 11/29/22 02/06/23 Jing Cadena, DARK ROOM ATTENDANT TOLL REPA[facility] [address] [place] [address] [phone] Clinical Nurse Specialist Anesthesiology 01/15/23 Radha Lopez, [facility] [address] [place] [address] [phone] Pharmacist Pharmacist 01/16/23 Luis A Escobedo MD [address] [place] [address] [phone] Assigned Surgical Provider 02/07/23 04/15/23 Geri Loza PA-C [address] [place] [address] [phone] Assigned Surgical Provider 04/16/23 documented as of this encounter
--- OUTSIDE RECORDS SUMMARY | 2023-05-09 18:27 | XMS_ITS | Encounter Summary ---
Author Name Unknown Organization [facility] Address [address] [place] [address] Care Team Providers Care Technology Coach Name Role Phone Edda Agudelo PA-C Primary Care Provider + [phone] Magno Wood MD Unavailable [phone] Elvia Nugent [place] Primary Care Provider Unavailable Parth Ellis MD Unavailable [phone] Tati Ayala MD Unavailable [phone] Khris Butt MD Unavailable [phone] MorelosRoderick nunes MD Unavailable [phone] Roderick Morelos MD Unavailable [phone] Magno Wood MD Unavailable [phone] Sophie Ocasio Unavailable [phone] Parth Ellis MD Unavailable [phone] MorelosRoderick nunes MD Unavailable [phone] Henny Rosales APRN ROSTER CLERK Unavailable [phone] [facility] Elvia Nugent [place] Primary Care Pr ovider Sharee Negron RD Unavailable Kaykay Duarte DISTRIBUTION AGENT Primary Care Provider [phone] Christiane Rodríguez MD Unavailable [phone] Luis A Escobedo MD Unavailable + [phone] Chely Fernandez PA-C Unavailable [phone] Jing Cadena APRN [facility] Unavailable + [phone] Radha Lopez [facility] Unavailable [phone] Luis A Escobedo MD Unavailable + [phone] Geri Loza PA-C Unavailable [phone] Encounter Details Date Type Department Care Team (Late st Contact Info) Description 04/20/2009 Office Visit-[facility] Heart [address] [place] [phone] Lauri Canada APRN ROSTER CLERK NO INFO AVAILABLE 01/09/2022 Social History Tobacco Use Types Packs/Day Years Used Date Smoking Tobacco: Never Assessed Sex and Gender Information Value Date Recorded Sex Assigned at Not on file Gender Identity Not on file Sexual Orientation Not on file documented as of this encounter Progress Notes * Lauri Canada M - 04/28/2009 12:09 PM CST Progress Note Created by: Lauri Canada, N.P. DATE: 04/20/2009 JIMBO OWENS DATE OF : 1970 AGE: [age] years old Referring Physician: LUIS A WORRELL Referring Clinic: [facility] CURRENT DIAGNOSES 1. - Hypercholesterolemia, 272.0 2. Mitral valve disorders, 424.0 3. - PVC, 427.89 4. CAD, 414.00 5. - Shortness of Breath, 786.05 ALLERGIES NKA MEDICATIONS (prior to changes made today) 1. Atenolol 50 mg Tablet, PRN 2. Protonix 40 mg Tablet, Delayed Release (E.C.), 1 p.o. q.d. 3. Asmanex Twisthaler 220 mcg (14 doses) Aerosol Powdr Breath Activa, 1 p.o. daily 4. Aspirin 81 MgTablet, 1 p.o. daily 5. Synthroid 175 mcg Tablet, 1 p.o. daily 6. Crestor 20 mg Tablet, 1 p.o. daily CHIEF COMPLAINTS follow up dyslipidemia HISTORY OF PRESENT ILLNESS Jimbo Owens is a 38-year-old female who we last saw in January. At that point Dr. Li suggested Crestor for an LDL of 185. She did not take this and when confronted about that she states it was too expensive. She has a history of Phen-Fen use with mitral valve changes, which are mild byechocardiogram. She does not need an echo for a number of years. She also has palpitations, which have been identified as PVCs on event recorder. She takes PRN atenolol. She is currently undergoing a job change and some family issues so her palpitations have been a bit worse, her thyroid level is well regulated. She has a strong family history of premature heart disease in her father and brothers starting in their 40s. She has a familial dyslipidemia. She has started [employer] and has lost 20 pounds, however her lipids are extremely abnormal. Her triglycerides are 121, total cholesterol 296, HDL 53, LDL 219, VLDL 24, ratio 5.6 and ALT 14. She nowstates she can afford Crestor and voices an interest in taking it. I have reminded her that we cannot refill this medicine beyond the initial three months if she does not come back for her follow-up visits here. She is now voicing concern that she may have caused harm by not treating her lipids with prescriptive management and it has been 5 years since her nuclear stress test. I will reorder that and see erica to review all these results. She denies any chest discomfort, however she does note more palpitations recently likely related tostress. She is not exercise intolerant but does not exercise regularly. No shortness of breath, nausea, back, or jaw pain. PAST HISTORY Past Medical Illnesses: hyperlipidemia, hypothyroidism Past Cardiac Illnesses: hx mild thickening MV-?Fen-phen, palpitations, PVCs Surgeries/Procedures - General: mastoid surgery Cardiology Procedures-Noninvasive: echocardiogram June 2001, myocardial perfusion imaging (Nuclear) October 2004, event monitor February 2006, echocardiogram Dec 2007 PMHx Echo Results: 12/2007 Mitral valve normal in structure and function, normal EF Left Ventricular Ejection Fraction: 70% per nuc FAMILY HISTORY: Father - pacemaker; Mother - Age 34, cancer-breast; Half-Brother - [place]; Sister 1 - CAD; CARDIAC RISK FACTORS Tobacco Abuse: negative; Family History of Heart Disease: positive; Hyperlipidemia: positive; Hypertension: negative; Diabetes Mellitus: negative; Obesity:positive; Sedentary Life Style:positive; Age:negative; Menopausal:negative SOCIAL HISTORY Alcohol Use - socially, wine, mixed drinks and (3x/yr); Smoking - never smoked; Diet - weight Reduction Diet and caffeine use-1-2 per day; Exercise - some exercise, swimming and walking; Seat Belt Use - always; 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 INTEGUMENTARY denies any change in hair or nails, rashes, or skin lesions. EYES denies diplopia, history of glaucoma or visual field defects. EARS, NOSE, THROAT, MOUTH denies any hearing loss, epistaxis, hoarseness or difficulty speaking. RESPIRATORY denies dyspnea, cough, wheezing or hemoptysis. CARDIOVASCULAR palpitations, slightly worse during stress of job change ABDOMINAL denies ulcer disease, hematochezia or melena. MUSCULOSKELETAL history of generalized arthritis, back problems NEUROLOGICAL denies any history of recurrent strokes, headaches, TIA, or seizure disorder. PSYCHIATRIC anxiety, stress ENDOCRINE denies any history of thyroid disease or diabetes mellitus. HEMATOLOGICAL/IMMUNOLOGIC denies any food allergies, seasonal allergies, bleeding disorders. PHYSICAL EXAMINATION VITAL SIGNS: Blood Pressure: 110/58Sitting, Left arm, large cuff Pulse- 60.00/min. Weight- 221.00 lbs. Height- 66.00 Temperature- .00 CONSTITUTIONAL cooperative, alert and oriented,well [...] time, person and place. MEDICATIONS UPDATED/STARTED TODAY: Asmanex Twisthaler 220 mcg (14 doses) Aerosol Powdr Breath Activa, 1 p.o. daily, 0 Aspirin 81 Mg Tablet, 1 p.o. daily, DIRECTED Crestor 20 mg Tablet, 1 p.o. daily, #90 Synthroid 175 mcg Tablet, 1 p.o. daily, 0 MEDICATIONS REFILLED/STOPPED TODAY: Crestor 20 mg Tablet 1 p.o. q.d. #30 or #100 Physician Order, Aspirin 81 mg Tablet 1 p.o. q.d. DIRECTED Medication Change and Levothyroxine 150 mcg Tablet 1 p.o. q.d. DIRECTED Physician Order IMPRESSIONS/PLAN 1. Family history of premature coronary artery disease. She has a likely familial dyslipidemia. With weight loss her HDL and triglycerides have improved but her LDL is extremely high given her history and family history. I will order a nuclear stress test. I will put on Crestor 20mg a day as she states she can afford this now. I have given her 90 tablets. I will not refill this unless she returnsfor her follow-up. I will do a fasting lipid profile and ALT in six weeks and a stress test and seeher back to review those results. She will need to see Dr. Li at some point this year since she has not seen him for over a year. She does not need an echocardiogram to follow-up on her mitral valve for a number of years. It has been a pleasure seeing Jimbo in follow-up. I congratulated her on her weight loss and spent50% of this 25-minute visit counseling this patient on her dyslipidemia reviewing again causes of palpitations and how they are typically not harmful in the setting of a structurally normal heart. TODAYS ORDERS 1. F/U with Lauri Canada, MSN, ANP 6 weeks 2. Treadmill Nuclear Study 6 weeks, able to convert to pharm stress if pt unable to exercise 3. Lipid profile/ALT 6 weeks Lauri Canada, N.P. documented in this encounter Plan of Treatment Upcoming Encounters Date Type Department Care Team (Late st Contact Info) Description 06/24/2023 12:30 PM CDT Virtual Visit [facility] [address] [phone] Geri Loza PA-C [address] [place] [address] [phone] 06/24/2023 1:00 PM CDT Virtual Visit [facility] [address] [phone] Sharee Negron, RD [address] [place] [address] [phone] documented as of this encounter Visit Diagnoses Not on filedocumented in this encounter Additional Health Concerns Infection Onset Date Last Indicated Resolved Time Rule Out COVID-19 03/19/2020 03/19/2020 03/19/2020 6:22 PM SLABBER LIGHT COVID-19 03/19/2020 03/19/2020 04/09/2020 11:3 9 PM SLABBER LIGHT Rule Out COVID-19 06/19/2021 06/19/2021 06/19/2021 1:37 AM CDT Rule Out COVID-19 10/29/2021 10/29/2021 10/29/2021 1:07 AM CDT documented as of this encounter Care Teams Technology Coach Relationship Specialty Start Date End Date Edda Agudelo PA-C [facility] [address] [address] PCP - General 05/04/12 10/11/19 Ernestina Martini [address] [facility] [address] [place] [address] PCP - General Family Practice 10/12/19 08/18/22 Elvia Beck [address] [place] [address] PCP - General 08/19/22 10/14/22 Kaykay Duarte DISTRIBUTION AGENT [address] [place] [address] PCP - General 10/15/22 Magno Wood MD [address] [facility] [address] [place] [address] Otolaryngology 05/29/15 08/02/17 Parth Ellis MD [address] [place] [address] Assigned Heart and Vascular Provider 01/13/20 12/13/21 Tati Ayala MD [address] [facility] [address] [place] [address] Assigned Endocrinology Provider 01/13/20 12/29/20 Khris Butt MD [address] [place] [address] Assigned Heart and Vascular Provider 12/14/21 02/14/22 Roderick Morelos MD [address] [place] [address] Cardiovascular Disease 02/03/22 Roderick Morelos MD [address] [place] [address] Assigned Heart and Vascular Provider 02/15/22 07/18/22 Magno Wood MD [address] [facility] [address] [place] [address] Otolaryngology 02/21/22 Sophie Ocasio AuD [address] [place] [address] Hot Repairman Audiology 02/21/22 Parth Ellis MD [address] [place] [address] Assigned Heart and Vascular Provider 07/19/22 07/25/22 Roderick Morelos MD [address] [place] 731195 Assigned Heart and Vascular Provider 07/26/22 08/08/22 Henny Rosales APRN [facility] [address] [place] [phone] Assigned Heart and Vascular Provider 08/09/[address] [place] [address] [phone] Registered Dietitian Dietitian, Registered 09/02/22 Christiane Rodríguez MD [address] [place] [address] [address] [place], [place] 696[address] Otolaryngology 11/12/22 Luis A Escobedo MD [address] [place] [address] [address] [place], [place] 870[address] Assigned Surgical Provider 11/01/22 11/28/22 Chely Fernandez PA-C [address] [place] [address] [id number] Assigned Surgical Provider 11/29/22 02/06/23 Jing Cadena, ACTIVE DIRECTORY SYSTEMS ADMINISTRATOR [facility] [address] [facility] [address] [place], [place] 778[address] Clinical Nurse Specialist Anesthesiology 01/15/23 Radha Lopez, [facility] [address] [place], [place] [phone] Pharmacist Pharmacist 01/16/23 Luis A Escobedo MD [address] [facility] [address] [place], [place] 548495 Assigned Surgical Provider 02/07/23 04/15/23 Geri Loza PA-C [address] [place], [place] [phone] Assigned Surgical Provider 04/16/23 documented as of this encounter
--- OUTSIDE RECORDS SUMMARY | 2023-05-09 18:27 | XMS_ITS | Encounter Summary ---
Author Name Unknown Organization [place] Address [address] [place] [address] Care Team Providers Care Director Organizational Name Role Phone [facility] Primary [facility] Provider Unavailable Khris Butt MD Unavailable [phone] MorelosRoderick nunes MD Unavailable [phone] Roderick Morelos MD Unavailable [phone] Magno Wood MD Unavailable [phone] Sophie Ocasio Unavailable [phone] Parth Ellis MD Unavailable [phone] MorelosRoderick nunes MD Unavailable [phone] Henny Rosales APRN LEATHER LACER Unavailable [phone] [facility] Elvia Nugent [place] Primary Care Pr ovider Sharee Negron RD Unavailable Kaykay Duarte ORDNANCE ENGINEERING TECHNICIAN Primary Care Provider Christiane Rodríguez MD Unavailable [phone] Luis A Escobedo MD Unavailable [phone] Chely FernandezC Unavailable [phone] Jing Cadena APRN CARDIOLOGY PHYSICIAN ASSISTANT Unavailable + [phone] Radha Lopez [facility] Unavailable [phone] Luis A Escobedo MD Unavailable +[phone] Geri Loza PA-C Unavailable [phone] Encounter Details Date Type Department Care Team (Late st Contact Info) Description 02/11/2022 MyC Medical Advice [facility] Heart [place] [address] [facility] [address] [place] [address] Rowena Stockton Social History Tobacco Use Types Packs/Day Years [...] suspected to have Coronavirus/COVID-19? No / Unsure 02/10/2022 4:12 PM NET MAKING SUPERVISOR documented as of this encounter Plan of Treatment Upcoming Encounters Date Type Department Care Team (Late st Contact Info) Description 06/24/2023 12:30 PM CDT Virtual Visit [facility] Weight Management [address] [phone] Geri Loza PA-C [address] [place] [address] [phone] 06/24/2023 1:00 PM CDT Virtual Visit [facility] Weight Management [address] [phone] Sharee Negron, RD [address] [place] [address] [phone] documented as of this encounter Visit Diagnoses Not on filedocumented in this encounter Care Teams Director Organizational Relationship Specialty Start Date End Date Ernestina Martini PCP - General Family Practice 10/12/19 [facility] [address] [place] [address] PCP - General 08/19/22 10/14/22 [place] [address] [place] [address] PCP - General 10/15/22 Khris Butt MD [address] [place] [address] Assigned Heart and Vascular Provider 12/14/21 02/14/22 Roderick Morelos MD [address] [place] [address] Cardiovascular Disease 02/03/22 Roderick Morelos MD [address] [place] 405385 Assigned Heart and Vascular Provider 02/15/22 07/18/22 Magno Wood MD 420 [facility] [address] [place], [place] 696[address] Otolaryngology 02/21/22 Sophie Ocasio AuD [address] [place], [place] 216545 Flight Engineer Audiology 02/21/22 Parth Ellis MD [address] [place] [address]415 Assigned Heart and Vascular Provider 07/19/22 07/25/22 Roderick Morelos MD [address] [place] [address] Assigned Heart and Vascular Provider 07/26/22 08/08/22 Henny Rosales MOBILE HOME MECHANIC LEATHER LACER [address] [place] [phone] Assigned Heart and Vascular Provider 08/09/[address] [place], [place] 6060[address] Registered Dietitian Dietitian, Registered 09/02/22 Christiane Rodríguez MD [address] [place] [address] [address] [place], [place] 465[address] Otolaryngology 11/12/22 Luis A Escobedo MD 420 [facility] [address] [place] [address] Assigned Surgical Provider 11/01/22 11/28/22 Chely Fernandez PA-C [address] [place] [address] [phone] Assigned Surgical Provider 11/29/22 02/06/23 Jing Cadena, MOBILE HOME MECHANIC CARDIOLOGY PHYSICIAN ASSISTANT 420 [facility] [address] [place] [address] Clinical Nurse Specialist Anesthesiology 01/15/23 Radha Lopez [facility] [address] [place] [address] [phone] Pharmacist Pharmacist 01/16/23 Luis A Escobedo MD [address] [place] [address] 195 [place] [address] Assigned Surgical Provider 02/07/23 04/15/23 Geri Loza PA-C [address] [place] [address] Assigned Surgical Provider 04/16/23 documented as of this encounter
--- OUTSIDE RECORDS SUMMARY | 2023-05-09 18:27 | XMS_ITS | Encounter Summary ---
Author Name Unknown Organization [facility] Address [address] [place] [address] Care Team Providers Care Screwmaker Automatic Name Role Phone Edda Agudelo PA-C Primary Care Provider + [phone] Magno Wood MD Unavailable [phone] Elvia Nugent [place] Primary Care Provider Unavailable Parth Ellis MD Unavailable [phone] Tati Ayala MD Unavailable [phone] Khris Butt MD Unavailable [phone] MorelosRoderick nunes MD Unavailable [phone] Roderick Morelos MD Unavailable [phone] Magno Wood MD Unavailable [phone] Sophie Ocasio Unavailable [phone] Parth Ellis MD Unavailable [phone] MorelosRoderick nunes MD Unavailable [phone] Henny Rosales APRN RELIGIOUS LEADER Unavailable [phone] [facility] Elvia Nugent [place] Primary Care Pr ovider Sharee Negron RD Unavailable Kaykay Duarte MACHINIST HELPER Primary Care Provider [phone] Christiane Rodríguez MD Unavailable [phone] Luis A Escobedo MD Unavailable + [phone] Chely Fernandez PA-C Unavailable [phone] Cadena Jingjodi Richards APRN [facility] Unavailable + [phone] Radha Lopez Estuardo [facility] Unavailable + [phone] Luis A Escobedo MD Unavailable [phone] Geri Loza PA-C Unavailable [phone] Encounter Details Date Type Department Care Team (Late st Contact Info) Description 01/25/2004 Office Visit-[facility] Heart [address] [address] Unknown, DoctorMD Social History Tobacco Use Types Packs/Day Years Used Date Smoking Tobacco: Never Assessed Sex and Gender Information Value Date Recorded Sex Assigned at Not on file Gender Identity Not on file Sexual Orientation Not on file documented as of this encounter Progress Notes * Unknown, MD Angelica - 02/01/2004 1:19 PM CST Progress Note Created by: Reji Li M.D. DATE: 01/25/2004 JIMBO OWENS DATE OF : 1970 AGE: [age] years old Referring Physician: BOY WATSON Referring Clinic: [facility] CURRENT DIAGNOSES 1. - Shortness of Breath, 786.05 2. - PVC, 427.89 3. - Hypercholesterolemia, 272.0 4. Mitral valve disorders, 424.0 ALLERGIES NKA MEDICATIONS (including any changes made today) 1. Synthroid 0.175 mg, 1 qd 2. Albuterol Sulfate 90 mcg/inh, as dir 3. Zocor 20 mg, 1 p.o. q.d. CHIEF COMPLAINTS Followup of - PVC HISTORY OF PRESENT ILLNESS I had the pleasure of reacquainting myself with our mutual patient, Jimbo Owens. I have not seen her for over two years. I had seen her previously for ectopy which was presumably PVCs. We never saw anything more than that and she never came in for her event monitor. She also had been on Fen-Phen and she does have a mild mitral valve disorder which may have been related to that. She now comes in for a different problem. She has been having shortness of breath and it is clear that she is over weight and does have a slight asthma component but she has become very concerned about the shortness ofbreath because her 41-year-old brother just had a heart attack and stent and her sister went on to have a EBCT scan which was quite abnormal. The patient come in to talk to me about this. She has been started on Zocor but I do not believe that you are the one prescribing it and does not think her cholesterol is particularly well controlled on it. She does not have anything that would definitely sound like angina. She has occasional aches and pains in her chest, shortness of breath being her biggest symptom. She still has palpitations but they are much less than before to the point that they really were not much of a discussion point today. She mostly wanted to know what she could do for prevention and if she needs to worry about having heart disease at this point in her life. She is stillpre-menopausal. 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 EYES denies diplopia, history of glaucoma or visual field defects. EARS, NOSE, THROAT, MOUTH partial hearing loss RESPIRATORY dyspnea, same CARDIOVASCULAR please review HPI ABDOMINAL negative for abdominal fullness and negative for abdominal pain GENITOURINARY-FEMALE negative for dysuria, regular periods MUSCULOSKELETAL pain, chronic back pain, sl worse NEUROLOGICAL denies any history of recurrent strokes, TIA, or seizure disorder. PSYCHIATRIC positive for stress ENDOCRINE hyperlipidemia HEMATOLOGICAL/IMMUNOLOGIC denies any food allergies, seasonal allergies, bleeding disorders. PHYSICAL EXAMINATION VITAL SIGNS: Blood Pressure: 128/74 Pulse- 80.00/min. Weight- 245.00 lbs. Height- 66.00 Temperature- .00 CONSTITUTIONAL cooperative, [...] oriented to time, person and place. MEDICATIONS UPDATED TODAY: Synthroid 0.175 mg, 1 qd, 0 Albuterol Sulfate 90 mcg/inh, as dir, 0 MEDICATION STOPPED TODAY: Atenolol 25 mg and Synthroid 0.15 mg IMPRESSIONS/PLAN I suspect that she does not have any significant coronary disease at this time but she is quite worried about this. Therefore I have elected to do the following. I will ask her to come in for a cholesterol check and the primary thing would be prevention. I talked to her about possibly using a baby aspirin but I reviewed with her the Physician Health Study which would suggest at a young age the risk/benefit ratio is probably not suggesting aspirin is necessary at this point unless we document coronary disease. I talked to her briefly about EBCT and told her there is really no point in doing the test since it only tells if she has plaque that needs to be treated. She is already on treatment and the EBCT will not tell us if she has flow limiting disease. Therefore, I am going to recommend that we do a nuclear stress test which is really what she wants to determine if she has flow limiting lesions that might be her anginal equivalent of shortness of breath or these intermittent fleeting chest pains. I am also going to get an echocardiogram because it has been more than two years since we last looked at her mitral valve and she does have a systolic murmur. Perhaps it will be doubtful that the mitral insufficiency has gotten much worse to account for her shortness of breath. We talked again about all the prevention measures that she could do to prevent coronary disease. Obviously we cannot change her family genetics. We will check her cholesterol. As I said, she does nothave high blood pressure, she is not a smoker, she is still pre-menopausal. We did talk about weight issues which if anything she weighs more now than she did when I saw her last. I even briefly touched on bariatric surgery in patients who fail to lose weight and start developing end organ problemsor other diseases, in her particular case lipids at this time, and I trust she has no diabetes. I will ask her to come back and discuss the results of the above tests. Total consult time 40 minutes, greater than 50% counseling. TODAYS ORDERS 1. Lipid profile/ALT 2 weeks 2. 2D, color flow, doppler 2 weeks 3. Treadmill Nuclear Study 2 weeks 4. F/U with Lauri Canada, MSN, ANP f/u echo, gxt, chol Reji Li M.D. Electronically signed by [facility], [employer] Data Conversion at 08/05/2013 5:43 AM CDT documented in this encounter Plan of Treatment Upcoming Encounters Date Type Department Care Team (Late st Contact Info) Description 06/24/2023 12:30 PM CDT Virtual Visit [facility] [address] [phone] Geri Loza PA-C [address] [place] [address] [phone] 06/24/2023 1:00 PM CDT Virtual Visit [facility] [address] [phone] Sharee Negron, RD [address] [place] [address] [phone] documented as of this encounter Visit Diagnoses Not on filedocumented in this encounter Additional Health Concerns Infection Onset Date Last Indicated Resolved Time Rule Out COVID-19 03/19/2020 03/19/2020 03/19/2020 6:22 PM SETTER UP COVID-19 03/19/2020 03/19/2020 04/09/2020 11:3 9 PM SETTER UP Rule Out COVID-19 06/19/2021 06/19/2021 06/19/2021 1:37 AM CDT Rule Out COVID-19 10/29/2021 10/29/2021 10/29/2021 1:07 AM CDT documented as of this encounter Care Teams Screwmaker Automatic Relationship Specialty Start Date End Date Edda Agudelo PA-C [facility] [address] [place] [address] PCP - General 05/04/12 10/11/19 Ernestina Martini [address] [facility] [address] [place] [address] PCP - General Family Practice 10/12/19 08/18/22 [facility] [address] [place] [address] PCP - General 08/19/22 10/14/22 Kaykay Duarte, MACHINIST HELPER [address] [place] [address] PCP - General 10/15/22 Magno Wood MD [address] [address] Otolaryngology 05/29/15 08/02/17 Parth Ellis MD [address] [place] [address] Assigned Heart and Vascular Provider 01/13/20 12/13/21 Tati Ayala MD [address] [place] [address] Assigned Endocrinology Provider 01/13/20 12/29/20 Khris Butt MD [address] [place] [address] Assigned Heart and Vascular Provider 12/14/21 02/14/22 Roderick Morelos MD [address] [place] [address] Cardiovascular Disease 02/03/22 Roderick Morelos MD [address] [place] [address] Assigned Heart and Vascular Provider 02/15/22 07/18/22 Magno Wood MD 420 [facility] [address] [place], [place] [phone] Otolaryngology 02/21/22 Sophie Ocasio AuD [address] [place], [place] [phone] Manager Office Services Audiology 02/21/22 Parth Ellis MD [address] [place] [address] Assigned Heart and Vascular Provider 07/19/22 07/25/22 Roderick Morelos MD [address] [place] [address] Assigned Heart and Vascular Provider 07/26/22 08/08/22 Henny Rosales APRN RELIGIOUS LEADER [address] [place] [phone] Assigned Heart and Vascular Provider 08/09/[address] [place] [address] [phone] Registered Dietitian Dietitian, Registered 09/02/22 Christiane Rodríguez MD 420 [facility] [address] [place], [place] 5897[address] Otolaryngology 11/12/22 Luis A Escobedo MD [address] [place] [address] [phone] Assigned Surgical Provider 11/01/22 11/28/22 Chely Fernandez PA-C [address] [place] [address] [phone] Assigned Surgical Provider 11/29/22 02/06/23 Jing Cadena, EMPLOYEE SERVICE OFFICER CONCRETE BUSTER OPERATOR [address] [place] [address] [address] [place], [place] [phone] Clinical Nurse Specialist Anesthesiology 01/15/23 Radha Lopez [facility] [address] [place] [address] [phone] Pharmacist Pharmacist 01/16/23 Luis A Escobedo MD [address] [place] [address] [phone] Assigned Surgical Provider 02/07/23 04/15/23 Geri Loza PA-C [address] [place] [address] Assigned Surgical Provider 04/16/23 documented as of this encounter
--- OUTSIDE RECORDS SUMMARY | 2023-05-09 18:27 | XMS_ITS | Encounter Summary ---
Author Name Unknown Organization [facility] Address [address] [place] [id number] Care Team Providers Care Forestry Foreman Name Role Phone Barrington Agudelo PA-C Primary Care Provider + [phone] Magno Wood MD Unavailable [phone] Elvia Nugent Ira Primary Care Provider Unavailable Parth Ellis MD Unavailable [phone] Tati Ayala MD Unavailable [phone] Khris Butt MD Unavailable [phone] MorelosRoderick nunes MD Unavailable [phone] Roderick Morelos MD Unavailable [phone] Magno Wood MD Unavailable [phone] Sophie Ocasio Unavailable [phone] Parth Ellis MD Unavailable [phone] MorelosRoderick nunes MD Unavailable [phone] Henny Rosales APRN CABLE ENGINEER Unavailable [phone] [facility] Elvia Nugent Ira Primary Care Pr ovider Sharee Negron RD Unavailable Kaykay Duarte PSYCHOLOGY ASSOCIATE Primary Care Provider [phone] Christiane Rodríguez MD Unavailable [phone] Luis A Escobedo MD Unavailable + [phone] Chely Fernandez PA-C Unavailable [phone] CadenaJing jacob Susie [facility] Unavailable + [phone] Radha Lopez [facility] Unavailable [phone] Luis A Escobedo MD Unavailable + [phone] Geri Loza PA-C Unavailable +[phone] Encounter Details Date Type Department Care Team (Late st Contact Info) Description 05/07/2011 Office Visit-[facility] Heart [facility] [address] [facility] [address] [place] [address] Reji Li MD [address] [facility] [address] [place] [address] Social History Tobacco Use Types Packs/Day Years Used Date Smoking Tobacco: Never Assessed Sex and Gender Information Value Date Recorded Sex Assigned at Not on file Gender Identity Not on file Sexual Orientation Not on file documented as of this encounter Progress Notes * Reji Li MD - 08/19/2011 1:43 PM CDT Progress Note Created by: Reji Li M.D. DATE: 05/07/2011 JIMBO OWENS DATE OF : 1970 AGE: [age] years old Referring Physician: BARRINGTON LARA Referring Clinic: [facility] CURRENT DIAGNOSES 1. - Hypercholesterolemia, 272.0 2. - PVC, 427.89 3. - Shortness of Breath, 786.05 4. CAD, 414.00 5. Mitral valve disorders, 424.0 ALLERGIES NKA MEDICATIONS (prior to changes made today) 1. Asmanex Twisthaler 220 mcg (14 doses) Aerosol Powdr Breath Activated, PRN 2. atenolol 50 mg Tablet, 1-2 tabs as needed for palpitations 3. Lipitor 80 mg Tablet, 1 p.o. qHS 4. Synthroid 175 mcg Tablet, 1 p.o. daily, additonal 1/2 tab once weekly CHIEF COMPLAINTS Review lab results HISTORY OF PRESENT ILLNESS Jimbo Owens returns for follow up. She is a delightful 40-year-old woman. She has actually missed several office visits. I have not seen her for a couple of years. She had a question of Fen-Phen mitral valve disease. Although on a follow up echo, that mitral valve improved. She also has palpitations documented as PVCs. She does have thyroid disease, but she tells me that her Synthroid dose has been checked and is correct. She has occasional asthma. That can also trigger palpitations. She tells me that she went back on the phentermine alone. With this, she had 6 minutes of a racing heartbeat. That is the only time that she has had it. Otherwise, it sounds like PVCs. In addition, she has whatis almost certainly genetic hyperlipidemia. Her brother at a young age had a heart attack. Her cholesterol numbers have been exceedingly high. She self discontinued her Crestor. Lab tests were done today. Again, she is not on her cholesterol pill anymore. Her LDL was 197. HDL was 62. Triglycerides were 138. Total cholesterol was 287. ALT was 17. From her polisher dial, her electrolytes in October werenormal. Creatinine was normal. She tells me that her TSH with Dr. Fernandez was normal. At this time, I talked with the patient about cholesterol management. Even though her cholesterol is high, her overall risk is relatively low because she is pre or perimenopausal and does not have hypertension or hyperlipidemia. She does have an early family history. I think that she should go back on treatment. Lipitor would be cheaper. We will try Lipitor 80 mg. I talked to her about muscle aches. She will come back in two months for a lipid check. Regarding her palpitations, she wants another prescription for the atenolol. She states that it worked well when she had it in the past. She will take it on a p.r.n basis. At this point, I am not recommending a Type I C antiarrhythmic unless her palpitations become much worse or she has what sounds like an SVT (which she had only one time). I did go through the 10 year cardiac risk calculator with her. We briefly talked about a CT coronary calcium score, but she thinks that she will go ahead and take the pill. I do not think that that test would add that much. PAST HISTORY Past Medical Illnesses: hyperlipidemia, hypothyroidism, LBP Past Cardiac Illnesses: hx mild thickening MV-?Fen-phen, palpitations, PVCs Surgeries/Procedures - General: mastoid surgery Cardiology Procedures-NonInvasive: echocardiogram June 2001, myocardial perfusion imaging (Nuclear) Oct 2004, May 2009, event monitorDecember 2005, echocardiogram Dec 2007 PMHx Echo Results: 12/2007 Mitral valve normal in structure and function, normal EF Left Ventricular Ejection Fraction: 70% per nuc , EF<GT>55% by nuclear study -May 2009 Nuclear Results: May 2009- no evidence of ischemia 70% per nuc and EF<GT>55% by nuclear study -May 2009 FAMILY HISTORY: Father - pacemaker; Mother - Age 34, cancer-breast; Half-Brother - [place]; Sister 1 - CAD; SOCIAL HISTORY Alcohol Use - socially, wine, mixed drinks and (3x/yr); Smoking - never smoked; Diet - weight watchers; Exercise - some exercise; Seat Belt Use - always; 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 PHYSICAL EXAMINATION VITAL SIGNS: Blood Pressure: 124/82Sitting, Right arm, large cuff Pulse- 68.00/min. Weight- 248.20 lbs. Height- 67 CONSTITUTIONAL cooperative, alert and oriented,well developed, well [...] mcg (14 doses) Aerosol Powdr Breath Activated, PRN, 0 atenolol 50 mg Tablet,1-2 tabs as needed for palpitations, 30 Lipitor 80 mg Tablet, 1 p.o. qHS, #90 (Ninety) Synthroid 175 mcg Tablet, 1 p.o. daily, additonal 1/2 tab once weekly, 0 MEDICATIONS REFILLED/STOPPED TODAY: Asmanex Twisthaler 220 mcg (14 doses) Aerosol Powdr Breath Activa 1 p.o. daily 0 Dosage Decreased, Aspirin 81 Mg Tablet 1 p.o. daily DIRECTED Patient Request, Atenolol 50 Mg Tablet PRN 30 Refill, Crestor 40 mg Tablet 1 p.o. daily #90 Directions Changed-No Abbrvs, Crestor 40 mg Tablet 1 p.o. daily, pt has not been taking #0 (Zero) Physician Order, Protonix 40 Mg Tablet, Delayed Release (e.c.) 1p.o. daily #-1 Patient Request and Synthroid 175 mcg Tablet 1 p.o. daily 0 Dosage Increased IMPRESSIONS/PLAN This was a 40 minute visit. Greater than 50% was spent in counseling. TODAYS ORDERS 1. Lipid profile/ALT 1 day 2. F/U with Lauri Canada, DEBBY, ANP 2 months 3. Lipid profile/ALT 2 months Reji Li M.D. documented in this encounter Plan of Treatment Upcoming Encounters Date Type Department Care Team (Late st Contact Info) Description 06/24/2023 12:30 PM CDT Virtual Visit [facility] [address] [place] [address] Geri Loza PA-C [address] [place] [address] 06/24/2023 1:00 PM CDT Virtual Visit [facility] [place] [address] [facility] 4th [place] [phone] Sharee Negron, RD [address] [place] [address] documented as of this encounter Visit Diagnoses Not on filedocumented in this encounter Additional Health Concerns Infection Onset Date Last Indicated Resolved Time Rule Out COVID-19 03/19/2020 03/19/2020 03/19/2020 6:22 PM CERTIFIED MEDICINE AIDE COVID-19 03/19/2020 03/19/2020 04/09/2020 11:3 9 PM CERTIFIED MEDICINE AIDE Rule Out COVID-19 06/19/2021 06/19/2021 06/19/2021 1:37 AM CDT Rule Out COVID-19 10/29/2021 10/29/2021 10/29/2021 1:07 AM CDT documented as of this encounter Care Teams Forestry Foreman Relationship Specialty Start Date End Date Barrington Agudelo PA-C [facility] [address] [address] PCP - General 05/04/12 10/11/19 Ernestina Martini [address] [facility] [address] [place] [address] PCP - General Family Practice 10/12/19 08/18/22 [facility] [address] [place], [place] [id number] PCP - General 08/19/22 10/14/22 Kaykay Duarte, GUILLERMO [address] [facility] [place] [place] [address] PCP - General 10/15/22 Magno Wood MD [address] [facility] [address] [place] [address] Otolaryngology 05/29/15 08/02/17 Parth Ellis MD [address] [place] [id number] Assigned Heart and Vascular Provider 01/13/20 12/13/21 Tati Ayala MD [address] [facility] [address] [place], [place] [address] Assigned Endocrinology Provider 01/13/20 12/29/20 Khris Butt MD [address] [facility] [address] [place] [address] Assigned Heart and Vascular Provider 12/14/21 02/14/22 Roderick Morelos MD [address] [place] [address] Cardiovascular Disease 02/03/22 Roderick Morelos MD [address] [place], [place] 8314[address] Assigned Heart and Vascular Provider 02/15/22 07/18/22 Magno Wood MD 420 [facility] [address] [place], [place] [address]145 Otolaryngology 02/21/22 Sophie Ocasio AuD [address] [place], [place] [address] Medical Assisting Instructor Audiology 02/21/22 Parth Ellis MD [address] [place] [address]105 Assigned Heart and Vascular Provider 07/19/22 07/25/22 Roderick Morelos MD [address] [place], [place] 917615 Assigned Heart and Vascular Provider 07/26/22 08/08/22 Henny Rosales APRN CABLE ENGINEER [address] [place] [phone] Assigned Heart and Vascular Provider 08/09/[address] [place], [place] [address] Registered Dietitian Dietitian, Registered 09/02/22 Christiane Rodríguez MD 420 [facility] [address] [place], [place] [address]385 Otolaryngology 11/12/22 Luis A Escobedo MD 420 [facility] [address] [place], [place] [address]885 Assigned Surgical Provider 11/01/22 11/28/22 Chely Fernandez PA-C [address] [place], [place] 297635 Assigned Surgical Provider 11/29/22 02/06/23 Jing Cadena APRN REHABILITATION CONSULTANT [address] [place] [address] [address] Clinical Nurse Specialist Anesthesiology 01/15/23 Radha Lopez [facility] [address] [place] [address] Pharmacist Pharmacist 01/16/23 Luis A Escobedo MD [address] [place] [address] 229475 Assigned Surgical Provider 02/07/23 04/15/23 Geri Loza PA-C [address] [place] [address] 656235 Assigned Surgical Provider 04/16/23 documented as of this encounter
--- OUTSIDE RECORDS SUMMARY | 2023-05-09 18:27 | XMS_ITS | Encounter Summary ---
Author Name Unknown Organization [facility] Address [address] [place] [address] Care Team Providers Care Swing Grinder Name Role Phone Edda Agudelo PA-C Primary Care Provider + [phone] Magno Wood MD Unavailable [phone] Elvia Nugent [place] Primary Care Provider Unavailable Parth Ellis MD Unavailable [phone] Tati Ayala MD Unavailable [phone] Khris Butt MD Unavailable [phone] MorelosRoderick nunes MD Unavailable [phone] Roderick Morelos MD Unavailable [phone] Magno Wood MD Unavailable [phone] Sophie Ocasio Unavailable [phone] Parth Ellis MD Unavailable [phone] MorelosRoderick nunes MD Unavailable [phone] Henny Rosales APRN SILK SCREEN LAYOUT DRAFTER Unavailable [phone] [facility] Elvia Nugent [place] Primary Care Pr ovider Sharee Negron RD Unavailable Kaykay Duarte FLEX O WRITER OPERATOR Primary Care Provider [phone] Christiane Rodríguez MD Unavailable [phone] Luis A Escobedo MD Unavailable + [phone] Chely Fernandez PA-C Unavailable [phone] Cadena Jing Susie [facility] Unavailable + [phone] Radha Lopez Marte [facility] Unavailable [phone] Luis A Escobedo MD Unavailable + [phone] Geri Loza PA-C Unavailable [phone] Encounter Details Date Type Department Care Team (Late st Contact Info) Description 02/08/2007 Office Visit-[facility] Heart [facility] [address] [facility] [address] [place] [address] Reji Li MD [address] [facility] [address] [place] [address] Social History Tobacco Use Types Packs/Day Years Used Date Smoking Tobacco: Never Assessed Sex and Gender Information Value Date Recorded Sex Assigned at Not on file Gender Identity Not on file Sexual Orientation Not on file documented as of this encounter Progress Notes * Reji Li MD - 02/10/2007 10:34 AM CST Progress Note Created by: Reji Li M.D. DATE: 02/08/2007 JIMBO OWENS DATE OF : 1970 AGE: [age] years old Referring Physician: BOY WATSON Referring Clinic: [facility] CURRENT DIAGNOSES 1. - Hypercholesterolemia, 272.0 2. Mitral valve disorders, 424.0 3. - Shortness of Breath, 786.05 4. - PVC, 427.89 ALLERGIES NKA MEDICATIONS (prior to changes made today) 1. Atenolol 50 Mg, PRN 2. Vytorin 10mg/ 80mg, 1 qHS 3. Synthroid 0.15 mg, 1 p.o. q.d. 4. Protonix 40 mg, 1 p.o. q.d. CHIEF COMPLAINTS Per MD - follow up HISTORY OF PRESENT ILLNESS Jimbo Owens is a delightful 36-year-old female. She is seen here primarily for palpitations and cholesterol. 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 She has a mildly thickened mitral valve with mild mitral insufficiency. The last echoes was in 2003 and she requests a follow up, which we will plan on doing after the first of the year. She also has hyperlipidemia but she has no underlying known coronary disease. Her current test shows HDL 45, LDL 121, triglycerides 127, and ALT 18. This is on Vytorin 10/80. Although this is still not perfect, it is vastly improved from her original numbers which were LDL 194, HDL 51, and triglycerides 148. At this juncture she is already on the highest dose Vytorin. Her LDL goal should be , and ideally below 100, with HDL above 50. Since she is already on maximum dose I would prefer not to add another medication. I have again pushed diet and exercise. I have given her a handout forcholesterol management. I talked to her briefly about adding a little bit of olive oil to her salad dressing which may help raise her HDL. We talked briefly about a small amount of alcohol to raise her HDL but this will add calories, which is the underlying issue here. With regard to her palpitations, when she wore the heart monitor last year some of her episodes were simply sinus tachycardia at 106 where she felt her heart pounding. Occasionally they were PVCs. I have tried to be very conservative with this and explained to her that these are all benign and she takes atenolol on a p.r.n. basis. PAST HISTORY Past Medical Illnesses: hyperlipidemia, hypothyroidism Past Cardiac Illnesses: mildly thickened mitral valve-probable Fen-phen, palpitations, PVCs Surgical Procedures: mastoid surgery Cardiology Procedures-Noninvasive: echocardiogram May 1997, echocardiogram June 2001, myocardial perfusion imaging (Nuclear) October2004, event monitor February 2006 Left Ventricular Ejection Fraction: 70% per nuc FAMILY HISTORY: Father - pacemaker; Mother - Age 34, cancer-breast; Half-Brother - [place]; Sister 1 - CAD; SOCIAL HISTORY Alcohol [...] per week; REVIEW OF SYSTEMS GENERAL weight loss INTEGUMENTARY denies any change in hair or nails, rashes, or skin lesions. EYES denies diplopia, history of glaucoma or visual field defects. EARS, NOSE, THROAT, MOUTH partial hearing loss RESPIRATORY denies dyspnea, snoring, cough, wheezing or hemoptysis. CARDIOVASCULAR chest pain, palpitations, dizziness ABDOMINAL negative for abdominal fullness and negative for abdominal pain GENITOURINARY-FEMALE negative for dysuria, regular periods MUSCULOSKELETAL chronic back pain NEUROLOGICAL headaches PSYCHIATRIC anxiety, stress ENDOCRINE hyperlipidemia HEMATOLOGICAL/IMMUNOLOGIC denies any food allergies, seasonal allergies, bleeding disorders IMPRESSION/PLAN Although I could give her a once a day beta tyrel, I explained to her that they are not metabolically neutral and we are already having lipid issues. I could give her a type I medicine such as flecainide, but these are benign and I would prefer to keep things as minimal. I also suggested she try Slow-Mag which might help decrease her PVCs. I again reassured her that she is healthy and simply needs to continue to work on diet and exercise. She does not need another cholesterol check for a year. She gets her thyroid management through Dr. Vincent and Dr. Watson. We will follow up after the first of the year to check her echo. TODAYS ORDERS 1. 2D, color flow, doppler 3 months phen fen mitral valve 2. F/U with Imani Ott MSN, SILK SCREEN LAYOUT DRAFTER 3 months Reji Li M.D. documented in this encounter Plan of Treatment Upcoming Encounters Date Type Department Care Team (Late st Contact Info) Description 06/24/2023 12:30 PM CDT Virtual Visit [facility] [address] [phone] Geri Loza PA-C [address] [place] [address] [phone] 06/24/2023 1:00 PM CDT Virtual Visit [facility] [address] [phone] Sharee Negron, RD [address] [place] [address]405 documented as of this encounter Visit Diagnoses Not on filedocumented in this encounter Additional Health Concerns Infection Onset Date Last Indicated Resolved Time Rule Out COVID-19 03/19/2020 03/19/2020 03/19/2020 6:22 PM DO ALL OPERATOR COVID-19 03/19/2020 03/19/2020 04/09/2020 11:3 9 PM DO ALL OPERATOR Rule Out COVID-19 06/19/2021 06/19/2021 06/19/2021 1:37 AM CDT Rule Out COVID-19 10/29/2021 10/29/2021 10/29/2021 1:07 AM CDT documented as of this encounter Care Teams Swing Grinder Relationship Specialty Start Date End Date Edda Agudelo PA-C [facility] [address] [place] [address] [place] [address] PCP - General 05/04/12 10/11/19 Ernestina Martini [address] [place] [address] [facility] [address] [place] [address] PCP - General Family Practice 10/12/19 08/18/22 [facility] [place] [address] [place] [address] PCP - General 08/19/22 10/14/22 [place] [address] [place] [address] PCP - General 10/15/22 Magno Wood MD [address] [address] Otolaryngology 05/29/15 08/02/17 Parth Ellis MD [address] [place] [address] Assigned Heart and Vascular Provider 01/13/20 12/13/21 Tati Ayala MD [address] [place] [address] [place] [address] Assigned Endocrinology Provider 01/13/20 12/29/20 Khris Butt MD [address] [facility] [address] [place] [address] Assigned Heart and Vascular Provider 12/14/21 02/14/22 Roderick Morelos MD [address] [place] [address] Cardiovascular Disease 02/03/22 Roderick Morelos MD [address] [place] [address] Assigned Heart and Vascular Provider 02/15/22 07/18/22 Magno Wood MD [address] [place] [address] [phone] Otolaryngology 02/21/22 Sophie Ocasio AuD [address] [place], [place] 5423[address] Powertrain Control Systems Engineer Audiology 02/21/22 Parth Ellis MD [address] [place] [address] Assigned Heart and Vascular Provider 07/19/22 07/25/22 Roderick Morelos MD [address] [place] [address] Assigned Heart and Vascular Provider 07/26/22 08/08/22 Henny Rosales, ANIMAL TECHNICIAN SILK SCREEN LAYOUT DRAFTER [address] [place] [phone] Assigned Heart and Vascular Provider 08/09/[address] [place], [place] 486685 Registered Dietitian Dietitian, Registered 09/02/22 Christiane Rodríguez MD 420 [facility] [address] [place], [place] 7[address] Otolaryngology 11/12/22 Luis A Escobedo MD 420 [facility] [address] [place], [place] 9268[address] Assigned Surgical Provider 11/01/22 11/28/22 Chely Fernandez PA-C [address] [place] [address] [phone] Assigned Surgical Provider 11/29/22 02/06/23 Jing Cadena, ANIMAL TECHNICIAN LAST MODEL MAKER 420 [facility] [address] [place], [place] [address] Clinical Nurse Specialist Anesthesiology 01/15/23 Radha Lopez, [facility] [address] [place] [phone] Pharmacist Pharmacist 01/16/23 Luis A Escobedo MD 420 [facility] [address] [place], [place] 357355 Assigned Surgical Provider 02/07/23 04/15/23 Geri Loza PA-C [address] [place] [address] 716605 Assigned Surgical Provider 04/16/23 documented as of this encounter
--- OUTSIDE RECORDS SUMMARY | 2023-05-09 18:27 | XMS_ITS | Encounter Summary ---
Author Name Unknown Organization [facility] Address [address] [place] [address] Care Team Providers Care Animal Anatomy Teacher Name Role Phone Edda Agudelo PA-C Primary Care Provider + [phone] Magno Wood MD Unavailable [phone] Elvia Nugent [place] Primary Care Provider Unavailable Parth Ellis MD Unavailable [phone] Tati Ayala MD Unavailable [phone] Khris Butt MD Unavailable [phone] MorelosRoderick nunes MD Unavailable [phone] Roderick Morelos MD Unavailable [phone] Magno Wood MD Unavailable [phone] Sophie Ocasio Unavailable [phone] Parth Ellis MD Unavailable [phone] MorelosRoderick nunes MD Unavailable [phone] Henny Rosales APRN WINE SPECIALIST Unavailable [phone] [facility] Elvia Nugent [place] Primary Care Pr ovider Sharee Negron RD Unavailable Kaykay Duarte BUSINESS DEVELOPMENT RECRUITER Primary Care Provider [phone] Christiane Rodríguez MD Unavailable [phone] Luis A Escobedo MD Unavailable + [phone] Chely Fernandez PA-C Unavailable [phone] Jing Cadena [facility] Unavailable + [phone] Radha Lopez Estuardo [facility] Unavailable [phone] Luis A Escobedo MD Unavailable + [phone] Geri Loza PA-C Unavailable [phone] Encounter Details Date Type Department Care Team (Late st Contact Info) Description 03/31/2006 Office Visit-[facility] [place] [address] [facility] [address] [place] [address] Imani Ott, [employer] [facility] [address] [facility] [address] [place] [id number] Social History Tobacco Use Types Packs/Day Years Used Date Smoking Tobacco: Never Assessed Sex and Gender Information Value Date Recorded Sex Assigned at Not on file Gender Identity Not on file Sexual Orientation Not on file documented as of this encounter Progress Notes * Imani Ott, GUILLERMO - 04/02/2006 12:05 PM CST Progress Note Created by: Imani Ott N.P. DATE: 03/31/2006 JIMBO OWENS DATE OF : 1970 AGE: [age] years old Referring Physician: BOY AWTSON Referring Clinic: [facility] CURRENT DIAGNOSES 1. - Hypercholesterolemia, 272.0 2. Mitral valve disorders, 424.0 3. - Shortness of Breath, 786.05 4. - PVC, 427.89 ALLERGIES NKA MEDICATIONS (including any changes made today) 1. Vytorin 10mg/ 80mg, 1 p.o. q.d. 2. Synthroid 0.15 mg, 1 p.o. q.d. 3. Protonix 40 mg, 1 p.o. q.d. 4. Atenolol 25 Mg, 1 p.o. q.d. as needed CHIEF COMPLAINTS F/u event monitor HISTORY OF PRESENT ILLNESS This is a delightful 35-year-old female who presents to the [facility] today for a follow-up visit for her palpitations. As you know, she is a patient of Dr. German, with a history of presumptive PVCs. She is being treated for these with low-dose atenolol on an as-needed basis, with good relief. Last month, Jimbo had a brief episode of rapid heart rate, which lasted approximately 30 seconds. She was resting in bed. She denies any associated lightheadedness, shortness of breath, or chest pain; however, this seemed to concern her. She subsequently called our office and obtained an event recorder. Jimbo had a stress nuclear test performed in 2004, which ruled out ischemia and her ejection fraction was estimated at 70%. She does have a history of a mildly thickened mitral valve, secondary to Phen-Fen. Her mitral valve is being monitored via an echo on a two-year basis. She also has hyperlipidemia and is currently on Vytorin. Her lipids are being managed through our clinic. Her last lipid level revealed triglycerides of 143, HDL 45, and LDL of 118. She was told to increase her exercise, fiber, and add fish oil to her regimen. Today, Jimbo states that she is feeling well. She denies any more episodes of the fast heart rate.She states that she continues to have occasional palpitations but these have not increased since last visit. She denies any chest pain, shortness of breath, or lightheadedness with these episodes. She states that she has had increased stress over the past couple of years. She states that she sleepswell at night and feels restful when she awakens. I have reviewed the event recording tracings withher today. These revealed her heart rate to be in normal sinus rhythm with a rate between 60s to 90s. She denies any orthopnea, paroxysmal nocturnal dyspnea, dyspnea on exertion, chest pain, dizziness, syncope, or peripheral edema. She states that she is fearful to exercise, secondary to the fact that she might have a rapid heart rate. I have encouraged her to exercise, which would include 30 minutes of cardiovascular exercise 5 times a week, along with portion control and a low-fat saturated diet. I also talked about the importance of decreasing stress and obtaining consistent restful sleep.She also denies any muscle aches. Her blood pressure today was 114/74, with a heart rate of 76. Her lungs are clear. She has no peripheral edema. Further review of systems and physical examination are as noted below. PAST HISTORY Past Medical Illnesses: hyperlipidemia, hypothyroidism Past Cardiac Illnesses: mildly thickened mitral valve-probable Fen-phen, palpitations Surgical Procedures: mastoid surgery Cardiology Procedures-Noninvasive: echocardiogram May 1997, echocardiogram June 2001, myocardial perfusion imaging (Nuclear) October2004 Left Ventricular Ejection Fraction: 70% per nuc FAMILY HISTORY: Father - pacemaker; Mother - Age 34, cancer-breast; Half-Brother - [place]; Sister 1 - CAD; <FONT COLOR=#[id number]><FONT POINT=10>CARDIAC RISK FACTORS Tobacco Abuse: negative; Family History [...] lives with and children; Place of - [place]; Hours Worked - 30 hours per week; REVIEW OF SYSTEMS GENERAL no change in weight INTEGUMENTARY denies any change in hair or nails, rashes, or skin lesions. EYES denies diplopia, history of glaucoma or visual field defects. EARS, NOSE, THROAT, MOUTH partial hearing loss RESPIRATORY dyspnea, same CARDIOVASCULAR palpitations, light headedness ABDOMINAL negative for abdominal fullness and negative for abdominal pain GENITOURINARY-FEMALE negative for dysuria, regular periods MUSCULOSKELETAL chronic back pain NEUROLOGICAL denies any history of recurrent strokes, TIA, or seizure disorder. PSYCHIATRIC positive for stress ENDOCRINE hyperlipidemia HEMATOLOGICAL/IMMUNOLOGIC denies any food allergies, seasonal allergies, bleeding disorders. PHYSICAL EXAMINATION VITAL SIGNS: Blood Pressure: 114/74 Sitting, Left arm, large cuff Pulse- 76.00/min. Weight- 251.40 lbs. Height- 66.00 Temperature- .00 CONSTITUTIONAL cooperative, [...] muscles, clear to auscultation and percussion. CARDIAC RRR, ?soft click-syst, previously heard murmur not noted today ABDOMEN abdomen soft, bowel sounds normoactive, no masses, no hepatosplenomegaly, non- tender, no bruits, obese PERIPHERAL PULSES pulses full and equal in all extremities, no bruits auscultated. EXTREMITIES & BACK no deformities, clubbing, cyanosis, erythema or edema observed. There are no spinal abnormalities noted. Normal muscle strength and tone. NEUROLOGICAL no gross motor deficits noted, affect appropriate, oriented to time, person and place. IMPRESSION/PLAN: 1. Palpitations. Jimbo has occasional PVCs, per event recording last month; otherwise, she was in normal sinus rhythm. She has been treated with atenolol on an as-needed basis, with good relief. Onemonth ago, she had complaints of a brief episode of asymptomatic fast heart rate. There was no evidence on her event recording tracings. She has not had any increase in symptoms over the past few months. I have encouraged restful sleep, decreased stress, and exercise. She is to have a follow-up visit in one year with Dr. Li. She is to call our office with any increased symptoms or concerns she may have during the interim. 2. Mitral regurgitation. This is mild, per echocardiogram in 2004. She had mild thickening of her mitral valve, secondary to possible Phen-Fen. She is to have a follow-up echocardiogram on an every two-year basis. 3. Hyperlipidemia. Her last lipid level revealed triglycerides of 143, HDL 45, and LDL 118. She is on Vytorin. She was encouraged to take fish oil and increase her fiber in her diet. Thank you for allowing me to participate in this patient's care. Imani Ott N.Juaquin. documented in this encounter Plan of Treatment Upcoming Encounters Date Type Department Care Team (Late st Contact Info) Description 06/24/2023 12:30 PM CDT Virtual Visit [facility] [address] [address] Geri Loza PA-C [address] [place] [address] 06/24/2023 1:00 PM CDT Virtual Visit [facility] [address] [address] Sharee Negron, RD [address] [place] [address] documented as of this encounter Visit Diagnoses Not on filedocumented in this encounter Additional Health Concerns Infection Onset Date Last Indicated Resolved Time Rule Out COVID-19 03/19/2020 03/19/2020 03/19/2020 6:22 PM WARP PICKER COVID-19 03/19/2020 03/19/2020 04/09/2020 11:3 9 PM WARP PICKER Rule Out COVID-19 06/19/2021 06/19/2021 06/19/2021 1:37 AM CDT Rule Out COVID-19 10/29/2021 10/29/2021 10/29/2021 1:07 AM CDT documented as of this encounter Care Teams Animal Anatomy Teacher Relationship Specialty Start Date End Date Edda Agudelo PA-C [facility] [address] [address] PCP - General 05/04/12 10/11/19 [place] Ernestina Nugent [address] [address] PCP - General Family Practice 10/12/19 08/18/22 [facility] Jovanna [place] [address] [place] [address] PCP - General 08/19/22 10/14/22 Kaykay Duarte, BUSINESS DEVELOPMENT RECRUITER [id number] [place] [address] PCP - General 10/15/22 Magno Wood MD [address] [place] [address] Otolaryngology 05/29/15 08/02/17 Parth Ellis MD [address] [place] [address] Assigned Heart and Vascular Provider 01/13/20 12/13/21 Tati Ayala MD [address] [place] [address] Assigned Endocrinology Provider 01/13/20 12/29/20 Khris Butt MD [address] [place], [place] [address] Assigned Heart and Vascular Provider 12/14/21 02/14/22 Roderick Morelos MD [address] [place], [place] [address] MD Cardiovascular Disease 02/03/22 Roderick Morelos MD [address] [place] [address] Assigned Heart and Vascular Provider 02/15/22 07/18/22 Magno Wood MD [address] [place] [address] [address] [place], [place] [address] Otolaryngology 02/21/22 Sophie Ocasio AuD [address] [place], [place] 5[address] Tufting Machine Operator Audiology 02/21/22 Parth Ellis MD [address] [place] [address] Assigned Heart and Vascular Provider 07/19/22 07/25/22 Roderick Morelos MD [address] [place] [address] Assigned Heart and Vascular Provider 07/26/22 08/08/22 Henny Rosales APRN WINE SPECIALIST [address] [place] [phone] Assigned Heart and Vascular Provider 08/09/[address] [place], [place] [address] Registered Dietitian Dietitian, Registered 09/02/22 Christiane Rodríguez MD [address] [facility] [address] [place] [address] Otolaryngology 11/12/22 Luis A Escobedo MD [address] [facility] [address] [place] [address] Assigned Surgical Provider 11/01/22 11/28/22 Chely Fernandez PA-C [address] [place] [address] Assigned Surgical Provider 11/29/22 02/06/23 Jing Cadena APRN KITCHENWHERE MAKER [address] [facility] [address] [place] [address] Clinical Nurse Specialist Anesthesiology 01/15/23 Radha Lopez [facility] 9 [place] [address] Pharmacist Pharmacist 01/16/23 Luis A Escobedo MD [address] [address] Assigned Surgical Provider 02/07/23 04/15/23 Geri Loza PA-C [address] [place] [address] Assigned Surgical Provider 04/16/23 documented as of this encounter
--- OUTSIDE RECORDS SUMMARY | 2023-05-09 18:27 | XMS_ITS | Encounter Summary ---
Author Name Unknown Organization [facility] Address [address] [place] [address] Care Team Providers Care Job Setter Name Role Phone Edda Agudelo PA-C Primary Care Provider + [phone] Magno Wood MD Unavailable [phone] Elvia Nugent [place] Primary Care Provider Unavailable Parth Ellis MD Unavailable [phone] Tati Ayala MD Unavailable [phone] Khris Butt MD Unavailable [phone] MorelosRoderick nunes MD Unavailable [phone] Roderick Morelos MD Unavailable [phone] Magno Wood MD Unavailable [phone] Sophie Ocasio Unavailable [phone] Parth Ellis MD Unavailable [phone] MorelosRoderick nunes MD Unavailable [phone] Henny Rosales APRN SFDC TECHNICAL ARCHITECT Unavailable [phone] [facility] Elvia Nugent [place] Primary Care Pr ovider Sharee Negron RD Unavailable Kaykay Duarte ALL AROUND GEAR MACHINE OPERATOR Primary Care Provider [phone] Christiane Rodríguez MD Unavailable [phone] Luis A Escobedo MD Unavailable +[phone] Chely Fernandez PA-C Unavailable [phone] [facility] [facility] Unavailable [phone] Radha Lopez Marte [facility] Unavailable [phone] Luis A Escobedo MD Unavailable +[phone] Geri Loza PA-C Unavailable [phone] Encounter Details Date Type Department Care Team (Late st Contact Info) Description 12/16/2005 Office Visit-[facility] [address] [facility] [address] [place] [address] Reji Li MD [address] [facility] [address] [place] [address] Social History Tobacco Use Types Packs/Day Years Used Date Smoking Tobacco: Never Assessed Sex and Gender Information Value Date Recorded Sex Assigned at Not on file Gender Identity Not on file Sexual Orientation Not on file documented as of this encounter Progress Notes * Reji Li MD - 12/18/2005 3:31 PM CDT Progress Note Created by: Reji Li M.D. DATE: 12/16/2005 JIMBO OWENS DATE OF : 1970 AGE: [age] years old Referring Physician: BOY WATSON Referring Clinic: [facility] CURRENT DIAGNOSES 1. - Hypercholesterolemia, 272.0 2. Mitral valve disorders, 424.0 3. - Shortness of Breath, 786.05 4. - PVC, 427.89 ALLERGIES NKA MEDICATIONS (including any changes made today) 1. Atenolol 25 Mg, 1 p.o. q.d. as needed 2. Vytorin 10mg/ 40mg, 1 p.o. qHS 3. Synthroid 0.15 mg, 1 p.o. q.d. 4. Protonix 40 mg, 1 p.o. q.d. CHIEF COMPLAINTS Annual HISTORY OF PRESENT ILLNESS Jimbo Owens returns for followup. She has a history of presumptive PVCs that are very well treated with beta blockers. We talked about the fact that they are benign and she does not necessarily need treatment, but they are so bothersome to her that she takes atenolol on a p.r.n. basis with good relief. She has curtailed her caffeine use. She does note if she is nervous about something the PVCs are worse. She has no dizziness, no syncope, no chest pain or shortness of breath. She is also very concerned about her family history of early coronary disease. A nuclear stress test was done previously which was negative. PAST HISTORY Past Medical Illnesses: hyperlipidemia, hypothyroidism Past Cardiac Illnesses: mildly thickened mitral valve-probable Fen-phen, palpitations Surgical Procedures: mastoid surgery Cardiology Procedures-Noninvasive: echocardiogram May 1997, echocardiogram June 2001, myocardial perfusion imaging (Nuclear) October2004 Left Ventricular Ejection Fraction: 70% per nuc FAMILY HISTORY: Father - pacemaker; Mother - Age 34, cancer-breast; Half-Brother - [place]; Sister 1 - CAD; SOCIAL HISTORY Alcohol Use - socially, wine, mixed drinks and (3x/yr); Smoking - never smoked; Diet - caffeine use-1-2 per day and low carb diet; Exercise - some exercise, swimming and walking; Seat Belt Use - always; 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 Weight- 252.00 lbs. Height- 66.00 Temperature- .00 CONSTITUTIONAL cooperative, [...] time, person and place. MEDICATIONS UPDATED TODAY: Atenolol 25 Mg, 1 p.o. q.d. as needed, #30 or #100 Vytorin 10mg/ 40mg, 1 p.o. qHS, #30 or #100 Synthroid 0.15 mg, 1 p.o. q.d., DIRECTED MEDICATION STOPPED TODAY: Synthroid 0.175 mg, Vytorin 10mg/ 40mg and Atenolol 25 Mg IMPRESSIONS/PLAN We talked for some time today about calcium scoring CT scans and CT angiograms. I do not think she requires either of those. The patient has mild mitral valve disease. It may be due to phen/fen. I think we can wait two years before we do her next echo to check her mitral valve. She just had cholesterols done at [facility] yesterday. She will call us next week for the results to determine if weneed to increase her Vytorin. Total consult time: 25 minutes, greater than 50% counseling. TODAYS ORDERS 1. Return Visit 1 year 2. Lipid profile/ALT 1 year Reji Li M.D. We talked for some time today about calcium scoring CT scans and CT angiograms. I do not think she requires either of those. The patient has mild mitral valve disease. It may be due to phen/fen. I think we can wait two years before we do her next echo to check her mitral valve. She just had cholesterols done at [facility] yesterday. She will call us next week for the results to determine if weneed to increase her Vytorin. Total consult time: 25 minutes, greater than 50% counseling. Reji Li M.D./olive-msnestor/[id number] cc:Luis A Vincent M.D. documented in this encounter Plan of Treatment Upcoming Encounters Date Type Department Care Team (Late st Contact Info) Description 06/24/2023 12:30 PM CDT Virtual Visit [facility] [address] [address] Geri Loza PA-C [address] [place] [id number] 06/24/2023 1:00 PM CDT Virtual Visit [facility] [address] [address] Sharee Negron, RD [address] [place] [address] documented as of this encounter Visit Diagnoses Not on filedocumented in this encounter Additional Health Concerns Infection Onset Date Last Indicated Resolved Time Rule Out COVID-19 03/19/2020 03/19/2020 03/19/2020 6:22 PM GRANITE CUTTER 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 COVID-19 03/19/2020 03/19/2020 04/09/2020 11:3 9 PM GRANITE CUTTER APPRENTICE Rule Out COVID-19 06/19/2021 06/19/2021 06/19/2021 1:37 AM CDT Rule Out COVID-19 10/29/2021 10/29/2021 10/29/2021 1:07 AM CDT documented as of this encounter Care Teams Job Setter Relationship Specialty Start Date End Date Edda Agudelo PA-C [facility] [address] [address] PCP - General 05/04/12 10/11/19 [place] Jovanna [place] [address] [address] PCP - General Family Practice 10/12/19 08/18/22 [facility] Jovanna [place] [address] [place] [address] PCP - General 08/19/22 10/14/22 Kaykay Duarte, ALL AROUND GEAR MACHINE OPERATOR [address] [place] [address] PCP - General 10/15/22 Magno Wood MD [address] [place] [address] Otolaryngology 05/29/15 08/02/17 Parth Ellis MD [address] [place] [address] Assigned Heart and Vascular Provider 01/13/20 12/13/21 Tati Ayala MD [address] [place] [address] Assigned Endocrinology Provider 01/13/20 12/29/20 Khris Butt MD [address] [place] [address] Assigned Heart and Vascular Provider 12/14/21 02/14/22 Roderick Morelos MD [address] [place] [address] Cardiovascular Disease 02/03/22 Roderick Morelos MD [address] [place] [address] Assigned Heart and Vascular Provider 02/15/22 07/18/22 Magno Wood MD 420 [facility] [address] [place], [place] [address] Otolaryngology 02/21/22 Sophie Ocasio, Nick [address] [place], [place] [address] German Professor Audiology 02/21/22 Parth Ellis MD [address] [place] [address] Assigned Heart and Vascular Provider 07/19/22 07/25/22 Roderick Morelos MD [address] [place] [address] Assigned Heart and Vascular Provider 07/26/22 08/08/22 Henny Rosales APRN SFDC TECHNICAL ARCHITECT [address] [place] [phone] Assigned Heart and Vascular Provider 08/09/[address] [place], [place] [address] Registered Dietitian Dietitian, Registered 09/02/22 Christiane Rodríguez MD [address] [facility] 396 [place], [place] [address] Otolaryngology 11/12/22 Luis A Escobedo MD 420 [facility] 195 [place] [address] Assigned Surgical Provider 11/01/22 11/28/22 Chely Fernandez PA-C [address] [place] [address]16565 Assigned Surgical Provider 11/29/22 02/06/23 Jing Cadena, LEARNING DESIGN SPECIALIST SALES [employer] OPERATIONS TRAINEE 420 [facility] 450 [place], [place] [address] Clinical Nurse Specialist Anesthesiology 01/15/23 Radha Lopez [facility] [address] [place] [address] [phone] Pharmacist Pharmacist 01/16/23 Luis A Escobedo MD [address] [address] Assigned Surgical Provider 02/07/23 04/15/23 Geri Loza PA-C [address] [place] [address] Assigned Surgical Provider 04/16/23 documented as of this encounter
--- OUTSIDE RECORDS SUMMARY | 2023-05-09 18:27 | XMS_ITS | Encounter Summary ---
Author Name Unknown Organization [facility] Address [address] [place] [address] Care Team Providers Care Developmental Behavioral Physician Name Role Phone Edda Agudelo PA-C Primary Care Provider + [phone] Magno Wood MD Unavailable [phone] Elvia Nugent [place] Primary Care Provider Unavailable Parth Ellis MD Unavailable [phone] Tati Ayala MD Unavailable [phone] Khris Butt MD Unavailable [phone] MorelosRoderick nunes MD Unavailable [phone] Roderick Morelos MD Unavailable [phone] Magno Wood MD Unavailable [phone] oSphie Ocasio Unavailable [phone] Parth Ellis MD Unavailable [phone] MorelosRoderick nunes MD Unavailable [phone] Henny Rosales APRN TEST ENGINEER NUCLEAR EQUIPMENT Unavailable [phone] [facility] Elvia Nugent [place] Primary Care Pr ovider Sharee Negron RD Unavailable Kaykay Duarte SOLUTION MANAGER Primary Care Provider [phone] Christiane Rodríguez MD Unavailable [phone] Luis A Escobedo MD Unavailable + [phone] Chely Fernandez PA-C Unavailable [phone] CadenaJing jacob Susie [facility] Unavailable + [phone] Radha Lopez Marte [facility] Unavailable [phone] Luis A Escobedo MD Unavailable [phone] Geri Loza PA-C Unavailable +[phone] Encounter Details Date Type Department Care Team (Late st Contact Info) Description 02/10/2008 Office Visit-[facility] Heart [facility] [address] [facility] [address] [place] [address] Reji Li MD [address] [facility] [address] [place] [address] Social History Tobacco Use Types Packs/Day Years Used Date Smoking Tobacco: Never Assessed Sex and Gender Information Value Date Recorded Sex Assigned at Not on file Gender Identity Not on file Sexual Orientation Not on file documented as of this encounter Progress Notes * Reji Li MD - 02/15/2008 2:38 PM CST Progress Note Created by: Reji Li M.D. DATE: 02/10/2008 JIMBO OWENS DATE OF : 1970 AGE: [age] years old Referring Physician: LUIS A WORRELL Referring Clinic: [facility] CURRENT DIAGNOSES 1. - Hypercholesterolemia, 272.0 2. Mitral valve disorders, 424.0 3. - Shortness of Breath, 786.05 4. - PVC, 427.89 ALLERGIES NKA MEDICATIONS (prior to changes made today) 1. Synthroid 0.15 mg, 1 p.o. q.d. 2. Protonix 40 mg, 1 p.o. q.d. 3. Atenolol 50 Mg, PRN 4. Crestor 20 mg, 1 p.o. q.d. 5. Aspirin 81 mg, 1 p.o. q.d. CHIEF COMPLAINTS Review echo HISTORY OF PRESENT ILLNESS Jimbo Owens returns for followup. She is a delightful 37-year-old woman who had what was probably phen/fen mitral valve disease, although it was always mild. I reviewed her echocardiogram. It was read as completely normal by my partner. I reviewed it myself. This is a pixel of mitral regurgitation.The remainder of the echo is normal and I think that this whole issue about mitral valve disease is now finally resolved. This is not at all unheard of that a phen/fen valve could heal. Her other issue is hyperlipidemia. She has a familial hyperlipidemia and with this, unfortunately, early heart disease, with her father and brother having had heart disease starting in their 40s. The patient's cholesterol numbers were quite high and not a surprise. She had come off of her cholesterol pill because of monetary reasons. Even when she was on Vytorin her numbers were not ideal but were much better. Currently off all meds her triglycerides are 202, total cholesterol 272, HDL 47, LDL 185, ratio 5.8, and ALT 18. PAST HISTORY Past Medical Illnesses: hyperlipidemia, hypothyroidism Past Cardiac Illnesses: mildly thickened mitral valve-probable Fen-phen, palpitations, PVCs Surgeries/Procedures - General: mastoid surgery Cardiology Procedures-Noninvasive: echocardiogram May 1997, echocardiogram June 2001, myocardial perfusion imaging (Nuclear) October2004, event monitor February 2006, echocardiogram Dec 2007 PMHx Echo Results: normal EF55% Jan 2008 Left Ventricular Ejection Fraction: 70% per nuc [...] feels well, no change in exercise tolerance., no change in weight INTEGUMENTARY denies any change in hair or nails, rashes, or skin lesions. EYES denies diplopia, history of glaucoma or visual field defects. EARS, NOSE, THROAT, MOUTH partial hearing loss, right ear RESPIRATORY denies dyspnea, snoring, cough, wheezing or hemoptysis. CARDIOVASCULAR chest discomfort, palpitations, dizziness ABDOMINAL negative for abdominal fullness and negative for abdominal pain GENITOURINARY-FEMALE negative for dysuria, regular periods MUSCULOSKELETAL chronic back pain NEUROLOGICAL headaches PSYCHIATRIC stress ENDOCRINE hyperlipidemia HEMATOLOGICAL/IMMUNOLOGIC denies any food allergies, seasonal allergies, bleeding disorders. PHYSICAL EXAMINATION VITAL SIGNS: Blood Pressure: 116/74 Sitting, Right arm, large cuff Pulse- 72.00/min. Weight- 244.00 lbs. Height- 66.00 Temperature- .00 CONSTITUTIONAL cooperative, [...] time, person and place. MEDICATIONS UPDATED/STARTED TODAY: Atenolol 50 Mg, PRN, 30 Crestor 20 mg, 1 p.o. q.d., #30 or #100 Aspirin 81 mg, 1 p.o. q.d., DIRECTED MEDICATIONS REFILLED/STOPPED TODAY: Vytorin 10mg/ 80mg PT stopped 1 qHS 0 Patient Request and Atenolol 50 Mg PRN 20 Refill IMPRESSIONS/PLAN I am going to start her on Crestor 20 mg q.d. She will come back in three months and we will do a lipid profile. We talked about liver and muscle issues. We talked about diet and exercise. She is notexercising regularly. We briefly touched on bariatric surgery and of course I will leave that for her and Dr. Worrell to talk about. I have told her that Dr. Bandar Hickman is the surgeon here that we often refer to. She tells me her thyroid level was checked and it is normal. Her blood pressure is normal. Her palpitations are much better. She only uses atenolol sparingly, which is perfect. We will seeher back in three months for a lipid check. She does not need another echocardiogram for probably many years. My goal for her LDL is probably closer to 100 given that there were so many members of her family who had heart disease in their early 40s, although they were the males in the family. TODAYS ORDERS 1. Lipid profile/ALT 3 months 2. F/U with Lauri Canada, MSN, ANP 3 months Reji Li M.D. documented in this encounter Plan of Treatment Upcoming Encounters Date Type Department Care Team (Late st Contact Info) Description 06/24/2023 12:30 PM CDT Virtual Visit [facility] [address] [phone] Geri Loza PA-C [address] [place] [address] [phone] 06/24/2023 1:00 PM CDT Virtual Visit [facility] [address] [phone] Sharee Negron, RD [address] [place] [address] [phone] documented as of this encounter Visit Diagnoses Not on filedocumented in this encounter Additional Health Concerns Infection Onset Date Last Indicated Resolved Time Rule Out COVID-19 03/19/2020 03/19/2020 03/19/2020 6:22 PM PROGRAM ATTENDANT COVID-19 03/19/2020 03/19/2020 04/09/2020 11:3 9 PM PROGRAM ATTENDANT Rule Out COVID-19 06/19/2021 06/19/2021 06/19/2021 1:37 AM CDT Rule Out COVID-19 10/29/2021 10/29/2021 10/29/2021 1:07 AM CDT documented as of this encounter Care Teams Developmental Behavioral Physician Relationship Specialty Start Date End Date Edda Agudelo PA-C [facility] [address] [address] PCP - General 05/04/12 10/11/19 Sheila Martiniville 420 [facility] [address] [place] [address] PCP - General Family Practice 10/12/19 08/18/22 [facility], Elvia Nugent [place] [address] [facility] [place] [address] PCP - General 08/19/22 10/14/22 Kaykay Duarte SOLUTION MANAGER [address] [facility] [place] [address] PCP - General 10/15/22 Magno Wood MD 420 [facility] 396 [place] [address] Otolaryngology 05/29/15 08/02/17 Parth Ellis MD [address] [place] [address] Assigned Heart and Vascular Provider 01/13/20 12/13/21 Tati Ayala MD [address] [place] [address] 200 [place] [address] Assigned Endocrinology Provider 01/13/20 12/29/20 Khris Butt MD [address] [place] [address] [place] [address] Assigned Heart and Vascular Provider 12/14/21 02/14/22 Roderick Morelos MD [address] [place] [address] Cardiovascular Disease 02/03/22 Roderick Morelos MD [address] [place] [address] Assigned Heart and Vascular Provider 02/15/22 07/18/22 Mgano Wood MD [address] [place] [address] Otolaryngology 02/21/22 Sophie Ocasio AuD [address] [place] [address] [phone] Instructor Technical Training Audiology 02/21/22 Parth Ellis MD [address] [place] [address] Assigned Heart and Vascular Provider 07/19/22 07/25/22 Roderick Morelos MD [address] [place] [address] Assigned Heart and Vascular Provider 07/26/22 08/08/22 Henny Rosales APRN TEST ENGINEER NUCLEAR EQUIPMENT [address] [place] [phone] Assigned Heart and Vascular Provider 08/09/[address] [place] [address] [phone] Registered Dietitian Dietitian, Registered 09/02/22 Christiane Rodríguez MD [address] [place] [address] [phone] Otolaryngology 11/12/22 Luis A Escobedo MD [address] 827995 Assigned Surgical Provider 11/01/22 11/28/22 Chely Fernandez PA-C [address] [place], [place] [phone] Assigned Surgical Provider 11/29/22 02/06/23 Jing Cadena, METAL FENCE ERECTOR REFINISHER [address] 867275 Clinical Nurse Specialist Anesthesiology 01/15/23 Radha Lopez, [facility] [address] [place] [address] [phone] Pharmacist Pharmacist 01/16/23 Luis A Escobedo MD [address] [place] [address] 685155 Assigned Surgical Provider 02/07/23 04/15/23 Geri Loza PA-C [address] [place] [address] [phone] Assigned Surgical Provider 04/16/23 documented as of this encounter
--- OUTSIDE RECORDS SUMMARY | 2023-05-09 18:27 | XMS_ITS | Encounter Summary ---
Author Name Unknown Organization [facility] Address [address] [place] [address] Care Team Providers Care Timber Hewer Name Role Phone Edda Agudelo PA-C Primary Care Provider + [phone] Magno Wood MD Unavailable [phone] Elvia Nugent [place] Primary Care Provider Unavailable Parth Ellis MD Unavailable [phone] Tati Ayala MD Unavailable [phone] Khris Butt MD Unavailable [phone] MorelosRoderick nunes MD Unavailable [phone] Roderick Morelos MD Unavailable [phone] Magno Wood MD Unavailable [phone] Sophie Ocasio Unavailable [phone] Parth Ellis MD Unavailable [phone] MorelosRoderick nunes MD Unavailable [phone] Henny Rosales APRN WIRELESS SALES EXPERT Unavailable [phone] [facility] Elvia Nugent [place] Primary Care Pr ovider Sharee Negron RD Unavailable Kaykay Duarte CLAIMS SORTER Primary Care Provider [phone] Christiane Rodríguez MD Unavailable [phone] Luis A Escobedo MD Unavailable + [phone] Chely Fernandez PA-C Unavailable [phone] Cadena Jingjodi Richards APRN [facility] Unavailable + [phone] Radha Lopez Marte [facility] Unavailable + [phone] Luis A Escobedo MD Unavailable [phone] Geri Loza PA-C Unavailable [phone] Encounter Details Date Type Department Care Team (Late st Contact Info) Description 12/06/2004 Office Visit-[facility] Heart [address] [address] Unknown, DoctorMD Social History Tobacco Use Types Packs/Day Years Used Date Smoking Tobacco: Never Assessed Sex and Gender Information Value Date Recorded Sex Assigned at Not on file Gender Identity Not on file Sexual Orientation Not on file documented as of this encounter Progress Notes * Unknown, MD Angelica - 12/11/2004 10:06 PM CDT Progress Note Created by: Lauri Canada N.P. DATE: 12/06/2004 JIMBO OWENS DATE OF : 1970 AGE: [age] years old Referring Physician: BOY WATSON Referring Clinic: [facility] CURRENT DIAGNOSES 1. - Hypercholesterolemia, 272.0 2. - Shortness of Breath, 786.05 3. - PVC, 427.89 4. Mitral valve disorders, 424.0 ALLERGIES NKA MEDICATIONS (including any changes made today) 1. Synthroid 0.175 mg, 1 qd 2. Protonix 40 mg, 1 p.o. q.d. 3. Vytorin 10mg/ 40mg, 1 p.o. qHS 4. Atenolol 25 Mg, 1 p.o. q.d. as needed CHIEF COMPLAINTS F/u nuc and labs HISTORY OF PRESENT ILLNESS </B><FONT FACE=Electronic Device Monitor New> Jimbo Owens is a pleasant, 34-year-old female who returns for follow-up today after her visit with Dr. Li nearly one year ago. She has a family history for premature coronary artery disease and a history of presumed PVCs. She was scheduled for an event monitor but never followed through with that appointment. She had been on Fen Phen in the past and has minimal mitral valve insufficiency on her most recent echocardiogram in February 2004. She had voiced concerns to Dr. Li, given, her family history, about the possibility of her having coronary artery disease. A nuclear stress test was performed and is normal. The EKG shows no significant changes, as well. She is on Zocor 20 mg. A lipid panel today is not at goal, and I have reviewed the results with her. They are as follows: triglycerides 148, total cholesterol 275, HDL cholesterol 51, LDL cholesterol 194, ratio 5.4, ALT 14. Her [place] 10-year risk score is 1%. According to that, her LDL cholesterol goal should be less than 160, although given her risk factors and family history, she may certainly benefit usp from an LDL cholesterol between 100-120. Jimbo, for the most part, is without symptoms except for intermittent palpitations. She is requesting to take atenolol p.r.n. for these, as that has helped her in the past. Her blood pressure is acceptable today. Her exam is otherwise unremarkable. <B><FONT FACE=System> PAST HISTORY Past Medical Illnesses: hyperlipidemia, hypothyroidism Past Cardiac Illnesses: mildly thickened mitral valve-probable Fen-phen, palpitations Surgical Procedures: mastoid surgery Cardiology Procedures-Noninvasive: echocardiogram May 1997, echocardiogram June 2001, myocardial perfusion imaging (Nuclear) October2004 Left Ventricular Ejection Fraction: 70% per nuc CARDIAC RISK FACTORS Tobacco Abuse: negative; Family History of Heart Disease: positive; Hyperlipidemia: positive; Hypertension: negative; Diabetes Mellitus: negative; Obesity:positive; Sedentary Life Style:positive; Age:negative; Menopausal:negative REVIEW OF SYSTEMS GENERAL weight gain of approximately 5 lbs INTEGUMENTARY denies any change in hair [...] disorders. PHYSICAL EXAMINATION VITAL SIGNS: Blood Pressure: 112/80 Sitting, Left arm, large cuff Pulse- 80.00/min. Weight- 244.00 lbs. Height- 66.00 Temperature- .00 [...] muscles, clear to auscultation and percussion. CARDIAC RRR soft syst, no s3 ABDOMEN abdomen soft, bowel sounds normoactive, no [...] time, person and place. MEDICATIONS UPDATED TODAY: Protonix 40 mg, 1 p.o. q.d., 0 Vytorin 10mg/ 40mg, 1 p.o. qHS, #30 Atenolol 25 Mg, 1 p.o. q.d. as needed, #30 MEDICATION STOPPED TODAY: Albuterol Sulfate 90 mcg/inh and Zocor 20 mg IMPRESSIONS/PLAN </B><FONT FACE=Electronic Device Monitor New>1) Family history of coronary artery disease with hyperlipidemia. Her nuclear stress test is normal. Given her age, I will not start aspirin at this time, as it likely adds no benefit. We will continue to monitor if any symptoms occur that are suspicious forcoronary artery disease. We could repeat her stress test or a noninvasive CT angiogram in the future. 2) Hyperlipidemia, not at goal. She is rather obese, does not consistently exercise and attempts to watch her diet with no weight loss. She has tried lifestyle modifications in the past with no success. She is on Zocor 20 mg with lipids as outlined above. I have switched her to Vytorin 10/40 mg q.d. I have suggested a repeat lipid panel in six to eight weeks. I will notify her of those results by phone when they are available to me. The patient needs to return to see Dr. Li within six months since it has been almost a year since her last visit. She likely will need another echocardiogram, given her Fen Phen history, in the next two to three years. I will defer the timing of that to Dr. Li when he sees her in follow-up. <B><FONT FACE=System> TODAYS ORDERS 1. F/U with Reji Li MD hyperlipidemia 2. Lipid profile/ALT 2 months Lauri Canada N.P. documented in this encounter Plan of Treatment Upcoming Encounters Date Type Department Care Team (Late st Contact Info) Description 06/24/2023 12:30 PM CDT Virtual Visit [facility] [address] [phone] Geri Loza PA-C [address] [place] [address] [phone] 06/24/2023 1:00 PM CDT Virtual Visit [facility] [address] [phone] Sharee Negron, RD [address] [place] [address] 199835 documented as of this encounter Visit Diagnoses Not on filedocumented in this encounter Additional Health Concerns Infection Onset Date Last Indicated Resolved Time Rule Out COVID-19 03/19/2020 03/19/2020 03/19/2020 6:22 PM COUNSELING CENTER MANAGER COVID-19 03/19/2020 03/19/2020 04/09/2020 11:3 9 PM COUNSELING CENTER MANAGER Rule Out COVID-19 06/19/2021 06/19/2021 06/19/2021 1:37 AM CDT Rule Out COVID-19 10/29/2021 10/29/2021 10/29/2021 1:07 AM CDT documented as of this encounter Care Teams Timber Hewer Relationship Specialty Start Date End Date Edda Agudelo PA-C [facility] [address] [phone] PCP - General 05/04/12 10/11/19 Ernestina Martini [address] [place] [address] [facility] 396 [place] [address] PCP - General Family Practice 10/12/19 08/18/22 Elvia [place] [address] [facility] [place] [address] PCP - General 08/19/22 10/14/22 [place] [address] [facility] [place] [address] PCP - General 10/15/22 Magno Wood MD 420 [facility] [address] [place] [address] Otolaryngology 05/29/15 08/02/17 Parth Ellis MD [address] [place] [address] Assigned Heart and Vascular Provider 01/13/20 12/13/21 Tati Ayala MD [address] [place] [address] [place], [place] 6[address] Assigned Endocrinology Provider 01/13/20 12/29/20 Khris Butt MD [address] [place] [address] [place] [address] Assigned Heart and Vascular Provider 12/14/21 02/14/22 Roderick Morelos MD [address] [place] 273185 Cardiovascular Disease 02/03/22 Roderick Morelos MD [address] [place] [address] Assigned Heart and Vascular Provider 02/15/22 07/18/22 Magno Wood MD 420 [facility] [address] [place], [place] 337155 Otolaryngology 02/21/22 Sophie Ocasio AuD [address] [place] [address] 599605 Striper Spray Gun Audiology 02/21/22 Parth Ellis MD [address] [place] 8[address]65 Assigned Heart and Vascular Provider 07/19/22 07/25/22 Roderick Morelos MD [address] [place], [place] 485545 Assigned Heart and Vascular Provider 07/26/22 08/08/22 Henny Rosales APRN WIRELESS SALES EXPERT [address] [place] [address] Assigned Heart and Vascular Provider 08/09/[address] [place] [address] [phone] Registered Dietitian Dietitian, Registered 09/02/22 Christiane Rodríguez MD [address] [place] [address] [phone] Otolaryngology 11/12/22 Luis A Escobedo MD [address] [place] [address] [phone] Assigned Surgical Provider 11/01/22 11/28/22 Chely Fernandez PA-C [address] [place] [address] 117175 Assigned Surgical Provider 11/29/22 02/06/23 Jing Cadena, HOMEBIRTH MIDWIFE HOME EXTENSION AGENT [address] [place] [address] Clinical Nurse Specialist Anesthesiology 01/15/23 Radha Lopez, [facility] [address] [place] [address] 036375 Pharmacist Pharmacist 01/16/23 Luis A Escobedo MD [address] [place] [address] [phone] Assigned Surgical Provider 02/07/23 04/15/23 Geri Loza PA-C [address] [place] [address] [phone] Assigned Surgical Provider 04/16/23 documented as of this encounter
--- OUTSIDE RECORDS SUMMARY | 2023-05-09 18:28 | XMS_ITS | Encounter Summary ---
Author Name Unknown Organization [facility] Address [address] [address] Care Team Providers Care Food Production Manager Name Role Phone Kaykay Duarte APRN, LEAH Primary Care Provid er Reason for Visit * Reason Comments Questions Encounter Details Date Type Department Care Team (Late st Contact Info) Description 04/28/2023 E-Visit [facility] 3800 Endocrinology [address] [facility] [place], [place] [phone] Mikayla Sweeney MD 3800 [place] [address] Chief Comp: Questions Social History Tobacco Use Types Packs/Day Years Used Date Smoking Tobacco: Never Smokeless Tobacco: Never Alcohol Use Standard Drinks/Week Comments Not Currently 0 (1 standard drink = 0.6 oz pur e alcohol) AUDIT-C Answer Date Recorded Q1: How often do you have a drink containing alc ohol? 2-3 times a week 03/25/2020 Q2: How many drinks containi ng alcohol do you have on a typical day when you are drinking? 1 or 2 03/25/2020 Q3: How often do you have si x or more drinks on one occasion? Never 03/25/2020 PHQ-2 Answer Date Recorded PHQ-2 Score 0 10/30/2022 Sex and Gender Information Value Date Recorded Sex Assigned at Not on file Gender Identity Not on file Sexual Orientation Not on file documented as of this encounter Nursing Notes * Moises Ha, SKIP - 04/30/2023 8:31 AM CST LDVM for pt as well as sending a MC message EIN * Mikayla Sweeney MD - 04/30/2023 8:14 AM CST Reduce levothyroxine to 200 mcg daily. Vocal cord issues are not associated with thyroid or endocrinology so I recommend she go to urgent care if she cannot see her primary provider. EIN * Wu Fenton RN - 04/29/2023 8:45 AM CST Patient calling in to report the following: I had my TSH drawn and now my symptoms are worse. My voice box, I am unable to make a higher pitch sound, so I am I just supposed to go into the Urgent Care because getting into primary is impossible and they are just going to tell me to see my Upper Shaper. Please advise, thank you. EIN * Mikayla Sweeney MD - 04/28/2023 12:49 PM CST She has standing TSH ordered so she can get the blood work done if she would like. Recommend see PCP for exam of the neck MACY SERVICE ASSOCIATE * Amie Mancia RN - 04/28/2023 10:00 AM CST Pt calling to report she noticed a voice change and has a lump in her neck. She is wondering if it is her inflamed thyroid. She intends to get TSH lab drawn, but wondering if there are any other labsshe needs done. Pt states she feels the lump when she swallows, but it is non-palpable. Pt had gastric bypass surgery on 03/18/23. MACY SERVICE ASSOCIATE documented in this encounter Plan of Treatment Not on file documented as of this encounter Visit Diagnoses Not on filedocumented in this encounter Care Teams Food Production Manager Relationship Specialty Start Date End Date Kaykay Duarte, NASCAR DRIVER, MIDDLE SCHOOL ART TEACHER [address] [place] [address] PCP - General Nurse Practitioner 10/25/21 documented as of this encounter
--- OUTSIDE RECORDS SUMMARY | 2023-05-09 18:28 | XMS_ITS | Encounter Summary ---
Author Name Unknown Organization [facility] Address [address], [place] [address] Care Team Providers Care Resaw Feeder Name Role Phone Kaykay Duarte APRN, LEAH Primary Care Provid er Reason for Visit * Reason Comments Prior Authorization For Medication Krishna wolf Encounter Details Date Type Department Care Team (Late st Contact Info) Description 01/01/2023 Telephone [place] [address] [place] [address]. [place] [address] Mikayla Sweeney MD [address] [place] [address] Prior Authorization For Medication (Mounjaro) Social History Tobacco Use Types Packs/Day Years [...] as of this encounter Nursing Notes * Kathy Allen - 01/01/2023 6:23 AM CDT PA initiated for Carie documented in this encounter Plan of Treatment Not on file documented as of this encounter Visit Diagnoses Not on filedocumented in this encounter Care Teams Resaw Feeder Relationship Specialty Start Date End Date Kaykay Duarte, GINA, CUSTOMER SERVICE SECURITY OFFICER [address] [place] [address] PCP - General Nurse Practitioner 10/25/21 documented as of this encounter
--- OUTSIDE RECORDS SUMMARY | 2023-05-09 18:28 | XMS_ITS | Encounter Summary ---
Author Name Unknown Organization [facility] Address [address] [place] [address] Care Team Providers Care Coffee Attendant Name Role Phone Kaykay Duarte APRN, LEAH Primary Care Provid er Reason for Visit * Reason Comments Orders Needed Encounter Details Date Type Department Care Team (Late st Contact Info) Description 04/21/2023 Telephone [facility] [address] [place] [address] Jesus Topete MD [address] [place] [id number] Orders Needed Social History Tobacco Use Types Packs/Day Years [...] as of this encounter Nursing Notes * Leigh Dunn RN - 04/24/2023 8:49 AM CST Cutter Machine sees the pt has made a f/u maryam;t with Dr. Topete on 04/25/2023. Leigh Paul RN - 04/22/2023 11:[address] Topete, the pt may be scheduled with him for this hip injection on either weekend of or May 02. Will wait for the [facility] to [facility]. Jesus León MD - 04/22/2023 11:03 AM CST Ok for us guided hip joint injection Leigh Paul RN - 04/22/2023 10:[address] Topete, Pt called in wanting to go forward with an intra-articular US guided right hip steroid injection. She was given a right hip bursa injection on 04/17/2023. May she get this injection now? If so, would you like Dr. Reed to do this procedure? Or, does she need to wait for ten days post bursa injection to see if she gets relief? Advise. Leigh Paul RN - 04/21/2023 10:10 AM CST 04/21/2023 Pt is asking for an ultrasound guided right hip steroid injection. Cutter Machine l/m on an unidentified vmasking the pt to [facility]. Given the mainline phone number and our hours of operation. It has only been 4 days since receiving a right hip bursa steroid injection. 04/22/2023 Cutter Machine left a second message asking the pt rctc. Will need to discuss her symptoms of the right hip. 04/17/2023 Assessment/Plan 1. Bilateral hip joint arthritis 2. Trochanteric bursitis of left hip - Inject/Asp Major Joint/Bursa Hip Knee Shoulder - Triamcinolone Acet Inj Nos: (per 10 mg) 3. 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 Extended discussion with the patient regarding prioritizing source of greatest level of pain. We opted to proceed with bilateral bursa injections today, and asked her to assess the affected these over the next 2-3 weeks, and then if pain persists especially in the right groin, consider returning for intra-articular ultrasound-guided right hip injection. Patient waseager to proceed. RVISOR FINISH END * Radha Noe - 04/21/2023 9:53 AM CST ORDERS / REFERRAL What referral/order are you requesting: Patient called in was told to schedule an USGI for the Right Hip however there is no order for that injection Why is the referral/order needed: Right Hip Where would you like the order/referral sent to: [facility] What is their fax number: n/a If we are unable to reach you can we leave a detailed message on your voicemail? Yes If we are unable to reach you can we send you a message in [employer]D [employer]? Yes [Retail And Restaurant/Ticket Sorter: Relay to patient; We make every effort to get back to you sameday, however it may take 1-2 business days depending on the nature of the communication.] [Retail And Restaurant/Ticket Sorter: Please inform the patient that a referral/order does not guarantee insurance coverage. Patients should call the member services number on the back of their insurance ID card to understand what coverage for the services they are requesting.] RVISOR FINISH END documented in this encounter Plan of Treatment Not on file documented as of this encounter Visit Diagnoses Not on filedocumented in this encounter Care Teams Coffee Attendant Relationship Specialty Start Date End Date Kaykay Duarte, GINA, AGRICULTURAL CHEMICALS INSPECTOR [address] [place] [address] PCP - General Nurse Practitioner 10/25/21 documented as of this encounter
--- OUTSIDE RECORDS SUMMARY | 2023-05-09 18:28 | XMS_ITS | Encounter Summary ---
Author Name Unknown Organization [facility] Address [address], [place] [address] Care Team Providers Care Digitizer Name Role Phone Kaykay Duarte APRN, LEAH Primary Care Provid er Encounter Details Date Type Department Care Team (Late st Contact Info) Description 04/28/2023 2:10 PM DISTRIBUTION TRANSFORMER ASSEMBLER Lab Visit [facility] [address] [place] [address] Hypothyroidism, unspecified type (HRC) Social History Tobacco Use Types Packs/Day Years [...] as of this encounter Plan of Treatment Not on file documented as of this encounter Procedures Procedure Name Priority Date/Time Associated Diagnosis Comments TSH, SENSITIVE Routine 04/28/2023 2:05 PM DISTRIBUTION TRANSFORMER ASSEMBLER Hypothyroidism, unspecified type (HRC) documented in this encounter Results * (ABNORMAL) TSH (04/28/2023 2:05 PM DISTRIBUTION TRANSFORMER ASSEMBLER) TSH, Sensitive 0.02(L) 0.30 - 4.50 uIU/mL 04/28/2023 8:01 PM DISTRIBUTION TRANSFORMER ASSEMBLER [facility] Blood Venipuncture / Unknown 04/28/2023 2:05 PM DISTRIBUTION TRANSFORMER ASSEMBLER 04/28/2023 2:05 PM DISTRIBUTION TRANSFORMER ASSEMBLER Mikayla Sweeney MD LAB_1 [facility] [address] documented in this encounter Visit Diagnoses Diagnosis Hypothyroidism, unspecified type (HRC) documented in this encounter Care Teams Digitizer Relationship Specialty Start Date End Date Kaykay Duarte, SENIOR ANALYST MARKET INTELLIGENCE, MINE SAFETY DIRECTOR [address] [place] [address] PCP - General Nurse Practitioner 10/25/21 documented as of this encounter
--- OUTSIDE RECORDS SUMMARY | 2023-05-09 18:28 | XMS_ITS | Encounter Summary ---
Author Name Unknown Organization [facility] Address [address] [place] [address] Care Team Providers Care Drinking Water Technician Name Role Phone Kaykay Duarte APRN, LEAH Primary Care Provid er Reason for Visit * Reason Comments PALPITATIONS--ED TACHYCARDIA Encounter Details Date Type Department Care Team (Late st Contact Info) Description 05/09/2023 Nurse Triage [facility] [address] [place], [place] [id number] Unknown, Physician [address] [place] [address] PALPITATIONS--ED; TACHYCARDIA Social History Tobacco Use Types Packs/Day Years [...] as of this encounter Nursing Notes * Nury Dumas RN - 05/09/2023 4:55 PM CST Verified patient identity: Yes Situation/Background (brief explanation of current symptoms/situation): Patient feels like her heart is beating irregularly. Has an maryam that says her heart rate is 130-140. Was nauseated and vomited about 10-15 minutes ago. Mild lightheadedness, intermittent. Heart rate currently is 103-145, difficult to get an accurate reading due to irregularity. Having heart palpitations. No chest pain or difficulty breathing. Reviewed with patient pertinent medical history (as it related to the call): Yes Gastric Bipass on 03/18/23, ablation for SVT about 2 years ago. Reviewed with patient pertinent medications (as they relate to call): N/A Reviewed with patient pertinent allergies (as they relate to call): N/A Reason for Disposition Dizziness, lightheadedness, or weakness Protocols used: Heart Rate and Heartbeat [id number] Recommendation: Go to ED now. Have someone else drive. Patient verbalizes understanding and agrees with this plan. Advised patient/caller to call back CareLine if there are further questions or concerns. The CareLine is available 13/10. Nury Ledezma RN Careline 5:10 PM 05/09/2023 MACHINE SETTER * Lakshmi Wade - 05/09/2023 4:54 PM CST Verified patient using 3 identifiers: Yes Caller reports the following red flag symptoms: PVC/palpitations. 133-145 Plan: Transferred directly to a CareLine RN. MACHINE SETTER documented in this encounter Plan of Treatment Not on file documented as of this encounter Visit Diagnoses Not on filedocumented in this encounter Care Teams Drinking Water Technician Relationship Specialty Start Date End Date Kaykay Duarte, PASTE MIXER, LINE HELPER [address] [place] [address] PCP - General Nurse Practitioner 10/25/21 documented as of this encounter
--- OUTSIDE RECORDS SUMMARY | 2023-05-09 18:28 | XMS_ITS | Encounter Summary ---
Author Name Unknown [facility] Address [address] [address] Care Team Providers Care Sweep Press Operator Name Role Phone Kaykay Duarte APRN, LEAH Primary Care Provid er Reason for Referral * Procedure/Equipment (Routine) - Incomplete Specialty Diagnoses / Procedures Referred By Contac t Referred To Contact Diagnoses Hypothyroidism, unspecified type (HRC) Procedures US Thyroid [place] CNM [address] [address] [place] [id number] Referral ID Status Reason Start Date Expiration Date V isits Requested Visits Authorized [id number] Incomplete 04/29/2023 07/28/2024 1 1 CE CLEANER * Consult/Transfer Care (Routine) - New Request Specialty Diagnoses / Procedures Referred By Contac t Referred To Contact Diagnoses Low libido [place] CN[place] [address] [address] [place] [address] Referral ID Status Reason Start Date Expiration Date V isits Requested Visits Authorized [id number] New Request 04/29/2023 07/28/2024 1 1 Scheduling Instructions Your clinician has recommended an appointment with [facility]. You may call [phone] to schedule your appointment. If you do not schedule an appointment within the next 1 to 3 business days, we will call you to help arrange your appointment. We suggest you call your health insurance company about your coverage and benefits for this appointment. Question Answer Appointment Urgency? Non-Urgent Reason for visit? low libido Comments She will call if desired but undecided at this time whether she wants to pursue consult. CE CLEANER Reason for Visit * Reason Comments Annual Exam Encounter Details Date Type Department Care Team (Late st Contact Info) Description 04/29/2023 9:00 AM OFFICE CLEANER Office Visit [facility]-LEAF SUCKER OPERATOR [address] [facility] [address] [place] [address] Elizabeth Herndon APRN, CNM [address] [facility] [address] [place] [address] Annual physical exam (Primary Dx); Low libido; Screening for cervical cancer; Hypothyroidism, unspecified type (HRC); Screen for STD (sexually transmitted disease); Screening for thyroid disorder Social History Tobacco Use Types Packs/Day Years [...] - Inhaled Oxygen Concentration - - Weight 121.1 kg (267 lb) 04/29/2023 9:13 AM OFFICE CLEANER Height - - Body Mass Index 43.09 09/11/2022 4:11 PM CDT documented in this encounter Patient Instructions * Attachments The following attachments cannot be sent through Care Everywhere. * Menopause: General Info (Turkish) documented in this encounter Progress Notes * Elizabeth Herndon APRN, DESMOND - 04/29/2023 9:00 AM CST Annual Exam OBGYN: Billie is a 52 y.o. female who presents for an annual exam. She is an established patient and known to me. Subjective: She has many underlying health conditions including obesity with a BMI of 53, type 2 diabetes, hyperlipidemia, restless leg syndrome, severe obstructive sleep apnea, asthma, GERD, overactive bladder,and hemorrhoids. Her primary care physician is managing those conditions. The following health concerns were addressed today: Thyroid Fullness: Started Thursday night. Voice sounding hoarse. Feels like something is in my throat. Unable to use higher register. Had TSH done yesterday and it was low at 0.02. The level was also 0.02 in December and it was also low then. Meds were adjusted at that time. Has been in touch with Endo. Has been vomiting, which she thought was secondary to eating too fast but now having this issue even if not eating quickly. Hx recurrent BV: No longer an issue. She opted not to treat with boric acid. Thinks she is less symptomatic Low libido: I don't like sex. Not really bothered by this but her is. Interested in referral to sexual medicine. Hx bariatric surgery: Had gastric sleeve procedure on 08/09/20 Reports frustration with slow weight loss. She is working closely with bariatric department. Then had gastric bypass 02/2023 because the gastric sleeve was ineffective. IUD check: Inserted in July 2017. Due for replacement 2025. No LMP recorded. (Menstrual status: IUD). No periods but serious hot flashes at night. Menstrual concerns: none. Roadmaster History: Last pap: 07/2017 Last PAP 11/2020 NILM HPV NEG Hx abn? YES 07/2017 NILM HPV POS (18) - COLPO NEG PAP DUE NOW 11/2023 OB History Para Term AB Living 4 3 1 0 1 2 SAB IAB Ectopic Multiple Live Births 1 0 0 0 0 # Outcome Date GA Lbr Karri/2nd Weight Sex Delivery Anes PTL Lv 4 Term 3 SAB 2 Para 1 Para Obstetric Comments 1 demise at 20 weeks. Pregnancies/Deliveries were no complicated by GHTN, Pre-E, GDM. She had irregular heart beat duringpregnancy. Family History: Family History Problem Relation Age of Onset Cancer Mother 32 Breast Cancer, Breast Mother 32 age 34 Cataract Father Heart Disease Father High Cholesterol Father Stroke Father Colon Polyps Father Obesity Father Obesity Sister Obesity Maternal Uncle Cancer, Ovary Maternal Grandmother Cancer, Breast Maternal Grandfather Cataract Paternal Grandmother Cancer Paternal Grandfather 50 colon Alcohol Abuse Negative Family History Drug Abuse Negative Family History Diabetes Negative Family History Glaucoma Negative Family History Macular Degeneration Negative Family History Retinal Detachment Negative Family History Amblyopia/Strabismus Negative Family History Female Cancer Hx: She does not have a personal history of female cancers: breast, uterine, ovarian, cervical, colon. She does not have a family history of the following female cancers: uterine, ovarian, cervical, colon. Family history positive for: Family history of breast cancer in mother at age 31, at age 32. Father had colon polyps. Sexual History: monogamous in a stable relationship Contraception: IUD She is satisfied with this method. She is not planning a in the next year. She denies a history of sexual assault. Health maintenance: Patient exercises regularly? No, needs hip joint injection and hip replacement Calcium intake: gets 3/day and is doing calcium supplement Stress level: life is stressful, life with is stressful, has therapist, doesn't feel like she needs medication. She would be relieved if he said he wanted out. Anxiety/Depression: see above Sleep quality: horrible sleeper. doesn't wear CPAP, has severe sleep apnea. Concerns about new/changing moles: no Bowel or bladder concerns: seeing urogyn, had bladder sling done Lipid screening (45+ DM/CAD/Tob/HTN/BMI>30, 20-45 if risk factors): managed by PCP Diabetes screening (40-70): managed by PCP Cervical cancer screening: due today Gonorrhea/chlamydia screening: declines Mammography: Mammogram doen 04/02/22 mammography questions: no new or changing breast lumps no unusual breast pains no discharge from the nipples no previous abnormal mammograms no personal or family history of breast cancer Colon cancer screening: done 11/20/22 Immunizations: See immunization tab COVID: has done two and declines further Past Medical History: Past Medical History: Diagnosis Date 2019 novel coronavirus disease (COVID-19) 03/19/2020 Asthma Chronic low back pain Hearing loss Right Ear Heartburn Hypothyroidism (HRC) Morbid obesity (HRC) Obesity (HRC) Pap smear abnormality of cervix Pneumonia due to COVID-19 virus 03/20/2020 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 Review of Systems With the exception of any items noted above, the remainder of the complete ROS is negative. Objective: There were no vitals taken for this visit. Estimated body mass index is 48.42 kg/m?? as calculated from the following: Height as of 09/11/22: 5' 6 (1.676 m). Weight as of 09/11/22: 300 lb (136.1 kg). General: The patient appears well, in NAD. Neck: supple, symmetrical, trachea midline, no adenopathy. Thyroid: not enlarged, symmetric, no tenderness/mass/nodules. Lungs: clear, good air entry, no wheezes, rhonchi or rales. Heart: No murmurs, regular rate and rhythm. Breast: normal without suspicious masses, skin or nipple changes or axillary nodes Abdomen: soft without tenderness, guarding, rebound tenderness, mass or organomegaly. Back: Symmetric, normal curvature, no CVAT. Pelvic: Ext Gen: No lesions, normal female Urethra: Normal Vagina: Normal rugae, no abnormal discharge, no odor, erythema, lesions; Cervix: normal, no discharge or lesions. IUD strings visualized and are appropriate in length. Bimanual exam reveals no masses, tenderness, no cervical motion tenderness. Uterus is of normal size. Lower extremities: No edema Skin: No rash or lesions. Psychiatric: Alert & oriented with normal affect and insight, does not appear depressed or anxious. Assessment Healthy female exam. No diagnosis found. Plan: Labs/imaging: Will send results via MyChart (or letter if no MyChart) or contact patient with abnormal results. Vaccines: up to date on vaccines she accepts Concerns today: Thyroid Fullness: Thyroid ultrasound Low libido: Interested in referral to sexual medicine, which was ordered today. Hx bariatric surgery: Continue following with bariatrics. IUD check: Due for replacement 2025. Contraception: IUD Health care maintenance: discussed age appropriate health screening/vaccines as appropriate. See HM tab above. Healthy lifestyle discussed (e.g. Regular physical activity, BMI). Encouraged routine dental and vision checkups. Follow up appointments recommended: see orders above RTC one year, prn with any concerns. [place], [place] [id number] for additional time for evaluation, management, record review, and coordination of care regarding low libido, thyroid concern CE CLEANER documented in this encounter Plan of Treatment Pending Results Name Type Priority Associated Diagnoses Date /Time PAP Test Lab Routine Screening for cervical cancer 04/29/2023 9:58 AM OFFICE CLEANER HPV with 16 18 Genotyping Microbiology Routine Screening for cervical cancer 04/29/2023 9:58 AM OFFICE CLEANER Scheduled Referrals Name Type Priority Associated Diagnoses Orde r Schedule Sexual Medicine and Health Consult Referral Routine Low libido Ordered: 04/29/2023 documented as of this encounter Results * US Thyroid (04/29/2023 2:31 PM OFFICE CLEANER) Anatomical Region Laterality Modality Neck, Head Ultrasound 04/29/2023 2:11 PM OFFICE CLEANER Impressions 04/29/2023 4:30 PM OFFICE CLEANER COMPARISON: None. TECHNIQUE: Ultrasound examination of the thyroid and adjacent soft tissues was performed. FINDINGS: RIGHT LOBE (cc, trans, ap): 3.8 x ??1.5 x ??1.3 cm LEFT LOBE (cc, trans, ap): 3.1 x ??1.3 x ??1.1 cm The thyroid parenchyma is heterogeneous in echogenicity without discrete nodule. Central cervical lymph nodes: No abnormal cervical lymph nodes. IMPRESSION: 1. No acute pathology in the thyroid gland. Specifically, no thyroid nodule that may be the cause of the patient's symptoms. 2. Heterogeneous thyroid parenchyma most consistent with sequela of prior thyroiditis. Narrative Procedure Note Kieran Arshad MD - 04/29/2023 IMPRESSION COMPARISON: None. TECHNIQUE: Ultrasound examination of the thyroid and adjacent soft tissueswas performed. FINDINGS: RIGHT LOBE (cc, trans, ap): 3.8 x 1.5 x 1.3 cm LEFT LOBE (cc, trans, ap): 3.1 x 1.3 x 1.1 cm The thyroid parenchyma is heterogeneous in echogenicity without discretenodule. Central cervical lymph nodes: No abnormal cervical lymph nodes. IMPRESSION: 1. No acute pathology in the thyroid gland. Specifically, no thyroidnodule that may be the cause of the patient's symptoms. 2. Heterogeneous thyroid parenchyma most consistent with sequela of priorthyroiditis. Elizabeth Herndon APRN, CNM RAD US * Chlamydia & GC, Urine (14 Years and Older) (04/29/2023 10:11 AM OFFICE CLEANER) Chlamydia Trachomatis STD Not Detected Not Detected 04/30/2023 12:18 AM OFFICE CLEANER [facility] N. gonorrhoeae STD Not Detected Not Detected 04/30/2023 12:18 AM OFFICE CLEANER [facility] Urine STD (Urine for STD) Non-blood Collection / Unknown 04/29/2023 10:11 AM OFFICE CLEANER 04/29/2023 10:12 AM OFFICE CLEANER Narrative [facility] - 04/30/2023 12:18 AM OFFICE CLEANER Test performed by Electron Beam Welder Setter Mediated Amplification (TMA). Elizabeth Herndon APRN, CNM LAB_1 [facility] [address] documented in this encounter Visit Diagnoses Diagnosis Annual physical exam- Primary Routine general medical examination at a health care facility Low libido Screening for cervical cancer Screening for malignant neoplasm of the cervix Hypothyroidism, unspecified type (HRC) Screen for STD (sexually transmitted disease) Screening examination for venereal disease Screening for thyroid disorder Hypothyroidism, unspecified type (HRC) documented in this encounter Care Teams Sweep Press Operator Relationship Specialty Start Date End Date Kaykay Duarte APRN, FOOD SCIENCE PROFESSOR [address] [place] [address] PCP - General Nurse Practitioner 10/25/21 documented as of this encounter
--- OUTSIDE RECORDS SUMMARY | 2023-05-09 18:28 | XMS_ITS | Encounter Summary ---
Author Name Unknown Organization [facility] Address [address], [place] [address] Care Team Providers Care Inserter Operator Name Role Phone Kaykay Duarte APRN, CNP Primary Care Provid er Encounter Details Date Type Department Care Team (Late st Contact Info) Description 01/22/2023 Telephone [facility] [address] [place] [address] Kyakay Duarte APRN, CNP [address] [place] [address] Social History Tobacco Use Types Packs/Day Years [...] on filedocumented in this encounter Care Teams Inserter Operator Relationship Specialty Start Date End Date Kaykay Duarte, GINA, FISH ROE PROCESSOR [address] [place] [address] PCP - General Nurse Practitioner 10/25/21 documented as of this encounter
--- OUTSIDE RECORDS SUMMARY | 2023-05-09 18:28 | XMS_ITS | Encounter Summary ---
Author Name Unknown Organization formerly [facility] Address [address] [address] Care Team Providers Care Packaging Inspector Name Role Phone Kaykay Duarte APRN, CNP Primary Care Provid er Reason for Referral * Consult/Transfer Care (Routine) - New Request Specialty Diagnoses / Procedures Referred By Osmar gallego Referred To Contact Diagnoses Trochanteric bursitis of left hip Primary osteoarthritis of right hip Kaykay Duarte APRN, CNP [address] [place] [address] Referral ID Status Reason Start Date Expiration Date V isits Requested Visits Authorized [id number] New Request 11/27/2022 02/26/2024 1 1 Scheduling Instructions Your clinician has recommended an appointment with [facility] [place]. You can quickly make your appointment online at [facility] [place]/schedule. You can also call [phone] for help scheduling your appointment. We suggest you call your health insurance company about your coverage and benefits for this appointment. Question Answer Appointment Urgency? Non-Urgent Reason for Visit * Reason Onset Date Comments MEDICATION CHECK Video Visit 11/27/2022 Encounter Details Date Type Department Care Team (Late st Contact Info) Description 11/27/2022 11:00 AM CDT Telemedicine [facility] [address] [place], [place] [id number] Kaykay Duarte APRN, FLEXOGRAPHIC PRINTING MACHINIST [address] [place] [address] Uncontrolled restless legs syndrome (Primary Dx); Restless legs syndrome; Hip pain; Trochanteric bursitis of left hip; Primary osteoarthritis of right hip; Mild intermittent asthma without complication (HRC) Social History Tobacco Use Types Packs/Day [...] Sign Reading Time Taken Comments Blood Pressure 110/68 11/27/2022 8:20 AM CDT as of 11/20 Pulse - - Temperature - - Respiratory Rate - - Oxygen Saturation - - Inhaled Oxygen Concentration - - Weight - - Height - - Body Mass Index - - documented in this encounter Progress Notes * Kaykay Duarte APRN, LEAH - 11/27/2022 11:00 AM CDT Subjective: Today's visit with Billie was conducted as a scheduled video visit for med check. Patient is currently seeing various specialists outside of the system. She is seeing [facility] for weight management and [facility] for Endocrinology. RLS: Patient reports RLS symptoms that are continuing to be problematic. She is on Requip 4mg at HSand Gabapentin 600mg at HS. She was taking Gabapentin 100- 300mg during the day prn, but does not dothis consistently. She states that RLS symptoms can occur randomly and are severe. She's not sure what to do at this point. Hip pain: Patient has a history of trochanteric bursitis as well as OA of the hips. She most recently met with AKTHIE in 03/13 and a bursal cortisone injection vs joint injection was offered. She declined and instead opted to take Celebrex. She has been using it sparingly, but finds it helpful when pain is extreme. Obesity: Had EGD, which proved that sleeve was too large per patient. She is now applying for gastric bypass surgery. She has been doing a keto diet. She is down to 296 lbs at this point. Started at 308.9. She is supposed to lose 20 lbs before she can qualify for a revision. She is also seeing a Secretary Of State. Dr Escobedo from [facility] is who would be doing her surgery. GERD: She has noticed a significant improvement on Omeprazole 40mg bid. Lower doses were not effective. DM 2: Now on Mounjaro 15mg weekly. Last A1C was 10/23 and was 7.0. Asthma: Well controlled. Only an issue if she gets sick. Uses albuterol on prn basis. HLD: Patient was told by her Retail Assistant Manager that lipids were high. LDL 235 in October 2022. She waspreviously on atorvastatin 40mg. Unclear why she went off. Objective: BP 110/68 Comment: as of 11/20 General: WDWN female in NAD Psych: Appropriate mood and affect Assessment/Plan: Uncontrolled restless legs syndrome - rOPINIRole (REQUIP) 2 MG tablet; Take 2 Tablets (4 mg) by mouth daily at bedtime. - Recommended taking gabapentin on scheduled basis through the day with meals to limit exacerbations. gabapentin (NEURONTIN) 100 MG capsule; Take 1-3 Capsules (100-300 mg) by mouth daily as needed (Restless legs). Take earlier in the day if needed for restless legs. Continue prescription for 600 mgat bedtime. - gabapentin (NEURONTIN) 600 MG tablet; Take 1 Tablet (600 mg) by mouth daily at bedtime. Hip pain - Discussed the significant risk of GI side effects/risks with continued NSAID use, especially given her gastric sleeve. She is aware and wishes to proceed. Advised her to use sparingly and always with food. celecoxib (CELEBREX) 200 MG capsule; Take 1 Capsule (200 mg) by mouth two times daily as needed for Pain. - celecoxib (CELEBREX) 200 MG capsule; Take 1 Capsule (200 mg) by mouth two times daily as needed for Pain. - Also referred for Orthopaedic Consult Adult/Peds Mild intermittent asthma without complication (HRC): Stable HLD - Restart atorvastatin (LIPITOR) 40 MG tablet; Take 1 Tablet (40 mg) by mouth daily. - Recheck lipids in 6 weeks along with ALT/AST Kaykay Duarte APRN, CNP documented in this encounter Plan of Treatment Scheduled Referrals Name Type Priority Associated Diagnoses Orde r Schedule Orthopaedic Consult Adult/Peds Referral Routine Trochanteric bursitis of left hip Primary osteoarthritis of right hip Ordered: 11/27/2022 documented as of this encounter Visit Diagnoses Diagnosis Uncontrolled restless legs syndrome- Primary Restless legs syndrome Restless legs syndrome (RLS) Hip pain Pain in joint, pelvic region and thigh Trochanteric bursitis of left hip Enthesopathy of hip region Primary osteoarthritis of right hip Primary localized osteoarthrosis, pelvic region and thigh Mild intermittent asthma without complication (HRC) Unspecified asthma documented in this encounter Care Teams Packaging Inspector Relationship Specialty Start Date End Date Kaykay Duarte APRN, CNP [address] [place] [address] PCP - General Nurse Practitioner 10/25/21 documented as of this encounter
--- OUTSIDE RECORDS SUMMARY | 2023-05-09 18:28 | XMS_ITS | Encounter Summary ---
Author Name Unknown Organization [facility] Address [address] [place] [address] Care Team Providers Care Typist Name Role Phone Kaykay Duarte APRN, LEAH Primary Care Provid er Reason for Visit * Reason Comments Follow-up Encounter Details Date Type Department Care Team (Late st Contact Info) Description 04/17/2023 1:10 PM TANK CAR MECHANIC Office Visit [facility] [address] [place] [address] Jesus Topete MD [address] [facility] [place] [id number] Bilateral hip joint arthritis (Primary Dx); Trochanteric bursitis of left hip; Trochanteric bursitis, right hip Social History Tobacco Use Types Packs/Day Years [...] this encounter Patient Instructions * Patient Instructions* Katty Cobos, [facility] - 04/17/2023 1:10 PM TANK CAR MECHANIC Thank you for choosing [facility] for your health care visit today. Diagnosis: No diagnosis found. Plan: Follow Up: As needed if symptoms are not improving or worsen. Injection(s): You've just had a steroid (cortisone) injection: Steroid injections are among the most frequently used treatments in orthopedics. Steroid injectionsare used for a wide range of conditions from arthritis, to bursitis, to tennis elbow, etc. The two most common side-effects of steroid shots called ???steroid flare??? and ???steroid flush. Steroid flare can cause an increase in symptoms in the first 24-48 hours after a steroid injection.This will usually subside within a few days, and is a cause from the additional fluid in your joint, and the trauma to the joint lining from the injection. This pain usually subsides quickly and can be aided with an ice pack and over the counter anti-inflammatory medication. Steroid flush is a flushing sensation and redness of their face. This reaction is more common in women, but can occur in men as well, and is seen into up to 15 percent of patients. This can begin within a few hours of the injection and may last for a few days. It is not dangerous, and will resolve itself. Diabetic patients also can have their blood sugar levels affected. Patients with diabetes should carefully monitor their blood sugar as steroid can cause a temporary rise in their levels. Patients taking insulin should be especially careful, checking their blood sugar often and adjusting the insulin doses, if necessary. Steroid injections can only be repeated every 3 or 4 months. For some conditions there may also be a limited total number of times it is safe to repeat an injection. RISKS: Infection Whenever there is a break in the skin, like when a needle is used to administer steroid, there is achance of infection this is very unlikely to happen, usually would occur days after the injection. Signs and symptoms to watch for: fever, streaking redness, pus, drainage, foul odor, localized redness that continues to get worse, come to the office if symptoms are recognized during business hours, or proceed to the emergency room if symptoms are recognized after office hours. Skin Pigment Changes Patients should also be aware that steroid may cause skin around the injection site to lighten. This is not harmful or long lasting. Loss of Fatty Tissue This is one reason we limit the number of steroid injections administered. High doses of steroid can have detrimental effects on some tissues in the body, though due to the dosage we use the risk is extremely rare. When injected into fatty tissue, steroid can lead to a problem called fat atrophy. Fat atrophy causes loss of fatty tissue, which can lead to dimpling of the skin or the thinning out of fat. Skin will feel thin. Patients who get steroid injections in the heel to treat plantar fasciitis may find walking painful as fat that usually cushions their steps may thin out. Tendon Rupture Steroid can also cause weakening of tendons. This is one reason to limit the number of steroid injections administered. RESTRICTIONS: Avoid vigorous activity for the next 24 hours. Avoid submersion for next 24 hours; ok to shower. CAR MECHANIC documented in this encounter Progress Notes * Jesus Topete MD - 04/17/2023 1:10 PM CST Images from the original note were not included. Acute Injury Clinic Progress Note Date of visit: 04/17/2023 Chief Complaint Chief Complaint Patient presents with Follow-up History of Present Illness Billie Connolly is a 52 y.o. female that presents today for evaluation of Follow-up Billie Connolly returns with bilateral lateral hip pain and right groin pain. She has had this for over a year, currently worse on the right, and has been avoiding injections prior to this time due todiabetes and planned gastric bypass surgery. The bypass surgery was completed in February. She is already noticed significant weight loss. The hip pain is getting worse, limiting her ability to exercise. She has been through extensive physical therapy and pain medications, and is limited from routine NSAIDs due to her bypass. She is unable to specify whether the right groin pain is more severe than the lateral bilateral hip pain. PMHx, medications, allergies, reviewed in Epic. Exam There were no vitals taken for this visit. General/ Constitutional: Well nourished, well developed, no apparent distress Respiratory: Normal respirations, no retractions Neurological: Oriented to person, place, and time Psychological: Normal mood and affect Musculoskeletal Abnormal gait, slightly Trendelenburg on the right. Right hip has tenderness at the trochanteric bursa region, hip range of motion is 100 and flexion, 20?? of internal rotation, 30?? of external rotation. Left hip flexion is 120??, 30?? of internal and 30?? of external rotation. Pain is reproduced primarily with hip internal rotation on the right. Left hip also has tenderness over the greater trochanteric region. Lumbar range of motion is good in flexion, limited in extension, and painful in the back on extension but does not reproduce the hip pain. Imaging XR Pelvis W Rt Lateral Hip Details Reading Physician Reading Date Result Priority Mars Lane MD [phone] 09/11/2022 Narrative & Impression IMPRESSION COMPARISON: 03/04/2022 FINDINGS: Moderate osteoarthritis in the right hip is similar to prior. No acute bone or joint abnormalities. Specimen Collected: 09/11/22 16:33 Last Resulted: 09/11/22 17:06 XR Pelvis W Lt Lateral Hip Details Reading Physician Reading Date Result Priority Santiago Glass MD [phone] 03/04/2022 Routine Narrative & Impression IMPRESSION COMPARISON: 08/30/2021 FINDINGS: Bony structures appear intact. Mild changes degenerative of both hips. No evidence of dislocation. No significant degenerative changes of the sacroiliac joints. IUD projecting over the mid pelvis. Specimen Collected: 03/04/22 18:07 Last Resulted: 03/04/22 18:5 These images were independently reviewed by myself and with the patient, as well as relevant imagesavailable via PACS if available. Assessment/Plan 1. Bilateral hip joint arthritis 2. [...] right hip injection. Patient waseager to proceed. bilateral Trochanteric Bursa cortisone injection procedure note: Consent After discussing the various treatment options for the condition, it was agreed that a corticosteroid injection would be the next step in treatment. The nature of the indications for corticosteroid and local anesthetic injection reviewed in detail with the patient today. The inherent risks of injection including infection, allergic reaction, increased pain, incomplete relief for a temporary relief of symptoms, alterations in blood glucose levels requiring careful monitoring and treatment as indicated, tendon, ligament or articular cartilage rupture or degeneration, nerve injury, skin depigmentation, and/or fatty atrophy were discussed. Procedure After the risks and benefits of the procedure were explained, consent was given. Patient placed in side-lying position with the affected hip directed upwards. The site for the injection was properly marked and prepped with chloroprep. Topical analgesia provided with ethyl chloride. Using a 22 gauge2.5 in needle, the trochanteric bursa region was injected via the lateral approach with 40mg of Kenalog, and 9 cc of 0.5% bupivocaine using sterile technique. During injection, there was unrestrictedflow. A sterile Band-Aid was applied. Procedure initially conducted on the right bursa, then on the left side. Patient tolerated the injection well and was discharged without complication. I have discussed the nature of her current subjective complaints, clinical examination, test results and have reviewed treatment options. Jesus Topete MD, CAQ This note contains medical terminology which is meant for communication between health care physicians and providers. Please note that vocabulary/phrasing/abbreviations may not carry the same definitions as they would in normal conversational speech. Additionally voice recognition software was usedto generate this note. As a result, wrong word or '[id number]' substitutions may have occurred due to the inherent limitations of voice recognition software. There may be errors in the script that have gone undetected. Please consider this when interpreting information found in this chart. CAR MECHANIC documented in this encounter Plan of Treatment Not on file documented as of this encounter Visit Diagnoses Diagnosis Bilateral hip joint arthritis- Primary Trochanteric bursitis of left hip Enthesopathy of hip region Trochanteric bursitis, right hip documented in this encounter Care Teams Typist Relationship Specialty Start Date End Date Kaykay Duarte, LABORER WOOD PRESERVING PLANT, PUBLIC HEALTH NURSE [address] [place] [address] PCP - General Nurse Practitioner 10/25/21 documented as of this encounter
--- OUTSIDE RECORDS SUMMARY | 2023-05-09 18:28 | XMS_ITS | Encounter Summary ---
Author Name Unknown Organization [facility] Address [address] [address] Care Team Providers Care Residential Green Building Designer Name Role Phone Kaykay Duarte APRN, LEAH Primary Care Provid er Reason for Visit * Reason Comments Eye Exam Encounter Details Date Type Department Care Team (Late st Contact Info) Description 04/28/2023 2:40 PM PATTERN DRAFTER Office Visit [facility] [address] [facility] [address] [place] [address] Indigo Zuniga, OD [address] [place] [address] Examination of eyes and vision (Primary Dx); Presbyopia; Regular astigmatism of left eye Social History Tobacco Use Types Packs/Day Years [...] as of this encounter Progress Notes * Nadia Indigo Isaac, OD - 04/28/2023 2:40 PM CST Patient is alert and feels well. Medical history, current medications, and allergies reviewed. Routine eye exam. Assessment: ICD-10-CM 1. Examination of eyes and vision Z01.00 Refractive State, Determination Of - Bilateral 2. Presbyopia H52.4 Refractive State, Determination Of - Bilateral 3. Regular astigmatism of left eye H52.222 Refractive State, Determination Of - Bilateral Plan: 1-3. Discussed findings with patient. Rx given for optional bifocals/PALs. 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 Patient declined dilation today. Discussed importance of routine dilated eye exams to monitor for potential health concerns of the eye. Advised to return for dilation portion if she can. This will be a continuation of today's exam and will be at no additional charge to the patient. RTC 1 year or sooner as needed. ERN DRAFTER documented in this encounter Plan of Treatment Not on file documented as of this encounter Visit Diagnoses Diagnosis Examination of eyes and vision- Primary Presbyopia Regular astigmatism of left eye Regular astigmatism documented in this encounter Care Teams Residential Green Building Designer Relationship Specialty Start Date End Date Kaykay Duarte, FIRER GLOST KILN, DETASSELER [address] [place] [address] PCP - General Nurse Practitioner 10/25/21 documented as of this encounter
--- OUTSIDE RECORDS SUMMARY | 2023-05-09 18:28 | XMS_ITS | Encounter Summary ---
Author Name Unknown Organization [facility] Address [address], [place] [address] Care Team Providers Care Line Supply Name Role Phone Kaykay Duarte APRN, AUDIT ASSOCIATE Primary Care Provid er Reason for Visit * Procedure/Equipment (Routine) - Incomplete Specialty Diagnoses / Procedures Referred By Osmar gallego Referred To Contact Diagnoses Hypothyroidism, unspecified type (HRC) Procedures US Thyroid Elizabeth Herndon APRN, CNM [address] [place] [address] Referral ID Status Reason Start Date Expiration Date V isits Requested Visits Authorized [id number] Incomplete 04/29/2023 07/28/2024 1 1 Encounter Details Date Type Department Care Team (Latest Contact Info) Description 04/29/2023 2:30 PM GAS UTILITY WORKER Ancillary Procedure [place] Jovanna Broadus [address] [address] [address] [place] [address] Elizabeth Herndon APRN, CNM [address] [place] [address] Hypothyroidism, unspecified type (HRC) Social History Tobacco [...] Procedure Name Priority Date/Time Associated Diagnosis Comments US THYROID Routine 04/29/2023 2:31 PM GAS UTILITY WORKER Hypothyroidism, unspecified type (HRC) documented in this encounter Results * US Thyroid (04/29/2023 2:31 PM GAS UTILITY WORKER) Anatomical Region Laterality Modality Neck, Head Ultrasound 04/29/2023 2:11 PM GAS UTILITY WORKER Impressions 04/29/2023 4:30 PM GAS UTILITY WORKER COMPARISON: None. TECHNIQUE: Ultrasound examination of the [...] parenchyma most consistent with sequela of priorthyroiditis. DESMOND Corcoran APRN US documented in this encounter Visit Diagnoses Diagnosis Hypothyroidism, unspecified type (HRC) documented in this encounter Care Teams Line Supply Relationship Specialty Start Date End Date Kaykay Duarte APRN, AUDIT ASSOCIATE [address] [place] [address] PCP - General Nurse Practitioner 10/25/21 documented as of this encounter
--- OUTSIDE RECORDS SUMMARY | 2023-05-09 18:28 | XMS_ITS | Encounter Summary ---
Author Name Unknown Organization [facility] Address [address], [place] [address] Care Team Providers Care Pulmonary Function Technician Name Role Phone Kaykay Duarte APRN, LEAH Primary Care Provid er Reason for Visit * Reason Comments Refill MOUNJARO 15 MG/0.5ML injection pen [Pharmacy Med Name: Mounjaro Subcutaneous Solution Pen-injector 15 MG/0.5ML] Encounter Details Date Type Department Care Team (Late st Contact Info) Description 02/10/2023 Refill [facility] [address] Endocr[address] [facility] [place], [place] [id number] Mikayla Sweeney MD [address] [place], [place] [id number] Refill (MOUNJARO 15 MG/0.5ML injection pen [Pharmacy Med Name: Mounjaro Subcutaneous Solution Pen-injector 15 MG/0.5ML]) Social History Tobacco Use Types Packs/Day Years [...] as of this encounter Nursing Notes * Claudine Rascon, RN - 02/10/2023 9:46 AM CST Patient called and requested refill. Renewed medication per medication refill standing order. Requested Prescriptions Signed Prescriptions Disp Refills tirzepatide (MOUNJARO) 15 MG/0.5ML injection pen 6 mL 1 Sig: Inject 15 mg subcutaneously once a week Authorizing Provider: MIKAYLA SWEENEY Ordering User: CLAUDINE RASCON levothyroxine (SYNTHROID) 25 MCG tablet 90 Tablet 1 Sig: Take 1 Tablet (25 mcg) by mouth daily. Take with 200mcg tab for a total of 225mcg daily. Take at least one hour before or two hours after meal. Authorizing Provider: MIKAYLA SWEENEY Ordering User: CLAUDINE RASCON HEAD SETTER * Interface, Out Surescripts Prov Query - 02/10/2023 9:25 AM CST MOUNJARO 15 MG/0.5ML injection pen [Pharmacy Med Name: Mounjaro Subcutaneous Solution Pen-injector 15 MG/0.5ML] None Exists -> Unable to determine if patient is due for a renewal, please review. -> Medication cannot be delegated. Last qualifying visit: 12/25/2022 (in [facility]38[facility] ENDOCRINOLOGY) Next scheduled visit: None Last ordered by MIKAYLA SWEENEY: 08/21/2022 (173 days ago) QTY: 2, Refills: 3, Sig: inject 15 mg subcutaneously once a week. (changed but equivalent) [employer] Embedded Refills, Reference: [id number], 02/10/2023 9:25:33 AM NAILHEAD SETTER, Pool: ENDO PNREFILL ([id number]) HEAD SETTER documented in this encounter Plan of Treatment Not on file documented as of this encounter Visit Diagnoses Not on filedocumented in this encounter Care Teams Pulmonary Function Technician Relationship Specialty Start Date End Date Kaykay Duarte, VE TEACHER, ASSOCIATE TECHNICIAN [address] [place] [address] PCP - General Nurse Practitioner 10/25/21 documented as of this encounter
--- OUTSIDE RECORDS SUMMARY | 2023-05-09 18:28 | XMS_ITS | Encounter Summary ---
Author Name Unknown Organization [facility] Address [address], [place] [address] Care Team Providers Care Torsion [place] Coiling Machine Setter Name Role Phone Kaykay Duarte APRN, CNP Primary Care Provid er Encounter Details Date Type Department Care Team (Late st Contact Info) Description 11/27/2022 Notes/Orders [facility] [address] [place], [place] [id number] Kaykay Duarte APRN, CNP [address] [place] [address] Social History Tobacco Use Types [...] on filedocumented in this encounter Care Teams [place] Coiling Machine Setter Relationship Specialty Start Date End Date Kaykay Duarte, GINA, HYDRAULIC PLUMBER HELPER [address] [place] [address] PCP - General Nurse Practitioner 10/25/21 documented as of this encounter
--- OUTSIDE RECORDS SUMMARY | 2023-05-09 18:28 | XMS_ITS | Encounter Summary ---
Author Name Unknown Organization [facility] Address [address], [place] [address] Care Team Providers Care Cold Saw Operator Name Role Phone Kaykay Duarte APRN, LEAH Primary Care Provid er Encounter Details Date Type Department Care Team (Late st Contact Info) Description 04/29/2023 10:00 AM ROOM SERVICE WAITER/WAITRESS Lab Visit [facility], [address] [address] Screen for STD (sexually transmitted disease) Social History Tobacco Use Types Packs/Day Years [...] as of this encounter Progress Notes * Elizabeth Herndon APRN, DESMOND - 04/29/2023 10:00 AM CST Normal labs. Message sent to patient via MyChart. SERVICE WAITER/WAITRESS documented in this encounter Plan of Treatment Not on file documented as of this encounter Procedures Procedure Name Priority Date/Time Associated Diagnosis Comments CHLAMYDIA & GC, URINE (14 YEARS AND OLDER) Routine 04/29/2023 10:11 AM ROOM SERVICE WAITER/WAITRESS Screen for STD (sexually transmitted disease) documented in this encounter Results * Chlamydia & GC, Urine (14 Years and Older) (04/29/2023 10:11 AM ROOM SERVICE WAITER/WAITRESS) Chlamydia Trachomatis STD Not Detected Not Detected 04/30/2023 12:18 AM ROOM SERVICE WAITER/WAITRESS [facility] N. gonorrhoeae STD Not Detected Not Detected 04/30/2023 12:18 AM ROOM SERVICE WAITER/WAITRESS [facility] Urine STD (Urine for STD) Non-blood Collection / Unknown 04/29/2023 10:11 AM ROOM SERVICE WAITER/WAITRESS 04/29/2023 10:12 AM ROOM SERVICE WAITER/WAITRESS Narrative [facility] - 04/30/2023 12:18 AM ROOM SERVICE WAITER/WAITRESS Test performed by [employer] (TMA). Elizabeth Herndon APRN, CNM LAB_1 Performing Organization Address City/State/[facility] Co de Phone Number [facility] [address] documented in this encounter Visit Diagnoses Diagnosis Screen for STD (sexually transmitted disease) Screening examination for venereal disease documented in this encounter Care Teams Cold Saw Operator Relationship Specialty Start Date End Date Kaykay Duarte APRN, [employer] PL[employer] SALES HOST/HOSTESS [address] [place] [address] PCP - General Nurse Practitioner 10/25/21 documented as of this encounter
--- OUTSIDE RECORDS SUMMARY | 2023-05-09 18:28 | XMS_ITS | Encounter Summary ---
Author Name Unknown Organization [facility] Address [address], [place] [address] Care Team Providers Care Property Caretaker Name Role Phone Kaykay Duarte APRN, LEAH Primary Care Provid er Reason for Visit * Reason Comments FOLLOW-UP,DIABETES Encounter Details Date Type Department Care Team (Late st Contact Info) Description 12/25/2022 1:30 PM CDT Telemedicine [place] [address] [place] [address]. [place] [address] Mikayla Sweeney MD [address] [place] [id number] Type 2 diabetes mellitus without complication, without long-term current use of insulin (HRC) (Primary Dx); Hypothyroidism, unspecified type (HRC); Mixed hyperlipidemia (HRC) Social History Tobacco Use Types Packs/Day [...] as of this encounter Progress Notes * Amie Mancia RN - 12/25/2022 1:30 PM CDT 12/22 Called pt and LVM to return call for chart prep. * Malissa Ceja RN - 12/25/2022 1:30 PM CDT Pre-Visit Planning for Phone/Video Visit: Diabetes Pre-visit planning completed. Reviewed the following: Medications (pended refills) Pharmacy Allergies Last foot & eye exam Tobacco/alcohol use Current Diabetes Medications Mounjaro Reported Glucose Results: No testing blood sugars TSH and A1C labs ordered to be done prior to appt per standing order * Mikayla Sweeney MD - 12/25/2022 1:30 PM CDT [facility] Adult Endocrinology [facility], [facility] [place] [address], Ph. [phone] December 25, 2022 CC: type 2 diabetes Scheduled video visit Interval History: Keto diet, has lost some weight. Plans on RYGB in February although no date set yet. No s/e on Mounjaro 15 mg. Contrave was not covered. On levothyroxine 250 mcg daily PCP prescribed atorvastatin 40 mg daily but she has not yet started it. Current diabetes regimen: Mounjaro 15 mg weekly (this dose x 2-3 months) Glucose data: None. Exam: General: NAD Labs: Latest Reference Range & Units 12/23/22 11:40 HGB A1C <=5.6 % 6.4 (H) (H): Data is abnormally high Latest Reference Range & Units 08/20/22 08:36 Alb/Creat Ratio, Urine, Random <30 mg/g 10 Latest Reference Range & Units 12/23/22 11:40 TSH, Sensitive 0.30 - 4.50 uIU/mL 0.02 (L) (L): Data is abnormally low Latest Reference Range & Units 10/23/22 11:20 Cholesterol 0 - 199 mg/dL 322 (H) Triglyceride <=149 mg/dL 205 (H) Chol/HDL Ratio 7.0 HDL >=40 mg/dL 46 Non HDL Chol, Calc <=159 mg/dL 276 (H) LDL, Calc. <130 mg/dL 235 (H) (H): Data is abnormally high Assessment/Plan: 1. Type 2 diabetes. diagnosed about 2 yrs ago,. Off insulin. Did not tolerate metformin. She has tried and failed Victoza and Bydureon. Continue Mounjaro 15 mg weekly, can d/c after RYGB. 2. Hypothyroidism. Decrease levothyroxine to 225 mcg daily. Recheck TSH in 2 months. 3. The atorvastatin that was prescribed by her primary care provider hyperlipidemia. Family historyof hyperlipidemia. Weight loss will help. I also recommend that she start the atorvastatin that wasprescribed by her primary care provider Follow up: 4 mos with A1c and TSH prior This visit was conducted via video. Location of clinician home. Location of patient work. Billing based on: Complexity Mikayla Sweeney MD documented in this encounter Plan of Treatment Scheduled Orders Name Type Priority Associated Diagnoses Orde r Schedule TSH Lab Routine Hypothyroidism, unspecified type (HRC) 6 Occurrences starting 12/25/2022 until 12/26/2023, 1 completed documented as of this encounter Results * (ABNORMAL) TSH (04/28/2023 2:05 PM DIRECTOR OF ELEMENTARY EDUCATION) TSH, Sensitive 0.02(L) 0.30 - 4.50 uIU/mL 04/28/2023 8:01 PM DIRECTOR OF ELEMENTARY EDUCATION [facility] Blood Venipuncture / Unknown 04/28/2023 2:05 PM DIRECTOR OF ELEMENTARY EDUCATION 04/28/2023 2:05 PM DIRECTOR OF ELEMENTARY EDUCATION Mikayla Sweeney MD LAB_1 [facility] [address] * (ABNORMAL) TSH (12/23/2022 11:40 AM CDT) Pathologist [facility] TSH, Sensitive 0.02(L) 0.30 - 4.50 uIU/mL 12/23/2022 6:10 PM CDT [facility] Blood Venipuncture / Unknown 12/23/2022 11:40 AM CDT 12/23/2022 11:43 AM CDT Mikayla Sweeney MD LAB_1 Performing Organization Address [facility] [[email or web address]] de Phone Number [facility] [address] [place] [address] * (ABNORMAL) HgbA1c - Collect in Lab (12/23/2022 11:40 AM CDT) [facility] Hemoglobin A1C (Rapid) 6.4(H) <=5.6 % 12/23/2022 1:46 PM CDT [facility] Estimated Average Glucose (Calc) 137 < 117 mg/dL 12/23/2022 1:46 PM CDT [facility] Comment:Estimated average gl ucose (eAG) converts A1c into glucose units (mg/dL) and estimates average glucose over the past approximately 3 months. The eAG reference interval (<117 mg/dL) corresponds to an A1c of <5.7%. Blood Venipuncture / Unknown 12/23/2022 11:40 AM CDT 12/23/2022 11:43 AM CDT Narrative [facility] - 12/23/2022 1:46 PM CDT For patients not previously diagnosed with diabetes: 5.7-6.4%: Increased risk for diabetes 6.5% and greater: Diagnostic for diabetes For patients diagnosed with diabetes: <8.0%: Goal of therapy for ages 18-75 Clinicians may recommend a higher or lower goal for specific individuals. The test method used for this Hemoglobin A1c result can experience interference from elevated hemoglobin and other hemoglobin variants. In patients with results that do not correlate clinically, contact the lab for further direction. Mikayla Sweeney MD LAB_1 [facility] [address] [place] [address], [facility] [phone] documented in this encounter Visit Diagnoses Diagnosis Type 2 diabetes mellitus without complication, without long-term current use of insulin (HRC)- Primary Hypothyroidism, unspecified type (HRC) Mixed hyperlipidemia (HRC) Mixed hyperlipidemia documented in this encounter Care Teams Property Caretaker Relationship Specialty Start Date End Date Kaykay Duarte APRN, [employer] [address] [place] [address] PCP - General Nurse Practitioner 10/25/21 documented as of this encounter
--- OUTSIDE RECORDS SUMMARY | 2023-05-09 18:28 | XMS_ITS | Clinical Summary ---
Author Name Unknown Organization [facility] Address [address] [place] [address] Care Team Providers Care Pharmacy Care Coordinator Name Role Phone Kaykay Duarte APRN, LAEH Primary Care Provid er Source Comments You are receiving this document as you are listed as the primary care provider,follow-up provider, or the patient has been referred to you for consultation.This is in compliance with the Medicare and[facility] EHR Incentive Program,which states Providers who transition their patient to another setting of careor provider of care or refers their patient to another provider of care shouldprovide summary care record for each transition of care or referral. [facility] Allergies No known active allergies Medications Medication Sig Dispensed Refills Start Date End Date Status albuterol 2.5 mg/3 mL, 0.083%, (PROVENTIL) nebulizer solutionIndications :Mild intermittent asthma without complication (HRC) Inhale 1 Vial every 4 hours as needed for Wheezing, Shortness of Breath or Other (cough). Inhale 1 vial (3 ml) in nebulizer every 6 hours as needed 180 mL 1 09/17/2020 Active insulin pen needle 31G X 8 MM SHORT Inject 1 Each subcutaneously daily. with pen injector device. Each needle is for one time use only 100 Each 02/08/2021 Active Additional Information Patient not taking.Reported on 12/23/2022 levonorgestrel (MIRENA) 20 MCG/24HR IUD 1 Each by Intrauterine route once. Active VENTOLIN HFA 108 (90 Base) MCG/ACT inhalerIndications: Mild intermittent asthma without complication (HRC) Inhale 2 Puffs every 6 hours as needed for Wheezing. 3 Each 3 02/14/2022 Active mometasone-formoter ol (DULERA) 200-5 mcg/actuation inhaler Inhale 1 Puff two times a day. Rinse mouth/gargle after use. 1 Each 3 02/20/2022 Active blood glucose (ACCU-CHEK GUIDE) test stripIndications:Ty pe 2 diabetes mellitus without complication, without long-term current use of insulin (HRC) Use 1 Each to test three times a day. 100 Strip 11 04/10/2022 Active Additional Information Patient not taking.Reported on 12/23/2022 Blood Glucose Monitoring Suppl (ACCU-CHEK GUIDE) w/Device KITIndications:Type 2 diabetes mellitus without complication, without long-term current use of insulin (HRC) Use as directed. 1 Kit 04/10/2022 Active Additional Information Patient not taking.Reported on 12/23/2022 lancets (ACCU-CHEK SOFTCLIX)Indication s:Type 2 diabetes mellitus without complication, without long-term current use of insulin (HRC) Use 1 Each to test three times a day. 300 Each 3 04/16/2022 Active cyanocobalamin (OALDHFYH56) 1000 MCG/ML injection Inject 1,000 mcg subcutaneously every 30 days. 08/15/2022 Active levothyroxine (SYNTHROID) 200 MCG tablet 1 tab PO daily with 25 mcg tab for total 225 mcg daily 90 Tablet 3 10/24/2022 Active omeprazole (PRILOSEC) 40 MG capsule Take 1 Capsule (40 mg) by mouth two times a day. 10/23/2022 Active rOPINIRole (REQUIP) 2 MG tabletIndications:U ncontrolled restless legs syndrome Take 2 Tablets (4 mg) by mouth daily at bedtime. 180 Tablet 3 11/27/2022 Active gabapentin (NEURONTIN) 100 MG capsuleIndications: Uncontrolled restless legs syndrome Take 1-3 Capsules (100-300 mg) by mouth daily as needed (Restless legs). Take earlier in the day if needed for restless legs. Continue prescription for 600 mg at bedtime. 90 Capsule 11 11/27/2022 Active gabapentin (NEURONTIN) 600 MG tabletIndications:R estless legs syndrome Take 1 Tablet (600 mg) by mouth daily at bedtime. 90 Tablet 5 11/27/2022 Active atorvastatin (LIPITOR) 40 MG tablet Take 1 Tablet (40 mg) by mouth daily. 90 Tablet 3 11/27/2022 4 Active celecoxib (CELEBREX) 200 MG capsuleIndications: Hip pain,Trochanteric bursitis of left hip,Primary osteoarthritis of right hip Take 1 Capsule (200 mg) by mouth two times daily as needed for Pain. 30 Capsule 11/27/2022 Active Additional Information Patient not taking.Reported on 12/23/2022 tirzepatide (MOUNJARO) 15 MG/0.5ML injection pen Inject 15 mg subcutaneously once a week 6 mL 1 02/10/2023 Active levothyroxine (SYNTHROID) 25 MCG tablet Take 1 Tablet (25 mcg) by mouth daily. Take with 200mcg tab for a total of 225mcg daily. Take at least one hour before or two hours after meal. 90 Tablet 1 02/10/2023 4 Active Active Problems Problem Noted Date Diagnosed Date Trochanteric bursitis of left hip 11/27/2022 Primary osteoarthritis of right hip 11/27/2022 Insulin long-term use 11/05/2021 QT prolongation 02/08/2021 Nocturia 01/04/2021 Overview: Added automatically from request for surgery [id number] S/P laparoscopic sleeve gastrectomy 08/09/2020 Overview: Laparoscopic vertical sleeve gastrectomy, intraoperative EGD No elective surgery for 30 days starting 08/09/20 Hx of hemorrhoids 03/22/2020 Type 2 diabetes mellitus wit hout complication, without long-term current use of insulin 12/15/2019 Severe obstructive sleep apnea 07/06/2019 Overview: Setting: AutoPAP 5-10 cmH20 Supplied by: Elvia Artis PSG done: 07-04-18 AHI 35 RDI 36 Lowest O2 Sat: 87% Lulyhawla nena Cervical high risk HPV (human papillomavirus) te st positive 08/05/2017 Overview: CCSM Review: History: 2018: NILM HPV+ (18), colp neg 2021: NILM HPV NEGATIVE Plan, per ASCCP guidelines: COTEST IN 3 YEARS Morbid obesity with body mas s index (BMI) of 50.0 to 59.9 in adult 04/15/2017 Hypothyroidism 08/01/2016 Chronic low back pain 08/01/2016 OAB (overactive bladder) 08/01/2016 Mild intermittent asthma without complication Restless legs syndrome 05/29/2014 Gastroesophageal reflux disease with esophagitis 08/14/2009 Mixed hyperlipidemia 08/14/2009 Resolved Problems Problem Noted Date Diagnosed Date Resolved Date Tachycardia 03/23/2020 06/11/2020 Pneumonia due to COVID-19 virus 03/20/2020 05/10/2020 2019 novel coronavirus disease (COVID-19) 03/19/2020 06/11/2020 Hypoxia 03/19/2020 06/11/2020 IFG (impaired fasting glucose) 08/02/2016 03/12/2020 Panic attack 10/16/2014 08/01/2016 Encounters Date Type Department Care Team Description 05/09/2023 Nurse Triage Careline [address] [place], [place] [address] [address] Unknown, Physician PALPITATIONS--ED; TACHYCARDIA 04/29/2023 2:30 PM MIMEOGRAPH OPERATOR Ancillary Procedure [facility] [address] Ultrasound [address] [place] [phone] Elizabeth Herndon, GINA, CNM Hypothyroidism, unspecified type (HRC) 04/29/2023 10:00 AM MIMEOGRAPH OPERATOR Lab Visit [facility] [id number] [place] [address], [facility] [address] [place] [address] Screen for STD (sexually transmitted disease) 04/29/2023 9:00 AM MIMEOGRAPH OPERATOR Office Visit [facility] CONTACT SPECIALIST [address] [facility], [facility] [address] [place] [phone] Elizabeth Herndon, GINA, CNM Annual physical exam (Primary Dx); Low libido; Screening for cervical cancer; Hypothyroidism, unspecified type (HRC); Screen for STD (sexually transmitted disease); Screening for thyroid disorder 04/28/2023 2:40 PM MIMEOGRAPH OPERATOR Office Visit [place] [address] Ophthalmology [address] [place] [address] Indigo Zuniga, OD Examination of eyes and vision (Primary Dx); Presbyopia; Regular astigmatism of left eye 04/28/2023 2:10 PM MIMEOGRAPH OPERATOR Lab Visit [place] [facility] [address] [place] [phone] Hypothyroidism, unspecified type (HRC) 04/28/2023 E-Visit [place] [address] [place] [address]. [place] [address] Mikayla Sweeney MD Chief Comp: Questions 04/21/2023 [facility] [address] [place] [phone] Jesus Topete MD Orders Needed 04/17/2023 1:10 PM MIMEOGRAPH OPERATOR Office Visit [facility] [address] [place] [phone] Jesus Topete MD Bilateral hip joint arthritis (Primary Dx); Trochanteric bursitis of left hip; Trochanteric bursitis, right hip 04/02/2023 8:40 AM MIMEOGRAPH OPERATOR Ancillary Procedure [place] [address] [place] [address] 02/10/2023 Refill [place] [address] Endocrinology [facility] [place] [address] Mikayla Sweeney MD Refill (MOUNJARO 15 MG/0.5ML injection pen [Pharmacy Med Name: Mounjaro Subcutaneous Solution Pen-injector 15 MG/0.5ML]) from Last 3 Months Immunizations Name Administration Dates Next Due Influenza IIV4 (Quadrivalent ) 0.5mL (16398) 02/08/2021,03/31/2019,04/14/2017 PPSV23 (Pneumovax) 04/14/2017 Pfizer Monovalent 12+ Purple Top 11/28/2020,03/3 Tdap 06/26/2021, 8(Deferred: Patient Refused - Pt left before administration) Zoster RZV (Shingrix) 09/13/2021,12/17/2020 Family History Medical History Relation Name Comments Cataract Father Pacemaker Colon Polyps Father Pacemaker Heart Disease Father Pacemaker High Cholesterol Father Pacemaker Obesity Father Pacemaker Stroke Father Pacemaker Cancer Mother Breast cancer Breast Cancer, Breast Mother Breast cancer age 34 High Cholesterol Mother Breast cancer Cancer, Breast Maternal Grandfather Heart Disease Maternal Grandfather Cancer, Ovary Maternal Grandmother Obesity Maternal Uncle Cancer Paternal Grandfather Colon cancer colon Cancer, Colon Paternal Grandfather Colon cancer Cataract Paternal Grandmother Osteoporosis Paternal Grandmother High Cholesterol Sister Obesity Sister Alcohol Abuse Negative Family History Amblyopia/Strabismus Negative Family History Diabetes Negative Family History Drug Abuse Negative Family History Glaucoma Negative Family History Macular Degeneration Negative Family History Retinal Detachment Negative Family History Relation Name Status Comments Father Pacemaker Alive Mother Breast cancer (Age 34) Maternal Grandfather Maternal Grandmother Maternal Uncle Paternal Grandfather Colon cancer Paternal Grandmother Sister Alive Social History Tobacco Use Types Packs/Day Years [...] 8:20 AM CDT as of 11/20 Pulse 73 11/20/2022 8:15 AM CDT Temperature 39.3 ??C (102.7 ??F) 10/31/2022 2:29 PM C DT Respiratory Rate 16 11/20/2022 8:15 AM CDT Oxygen Saturation 97% 11/20/2022 8:15 AM CDT Inhaled Oxygen Concentration - - Weight 121.1 kg (267 lb) 04/29/2023 9:13 AM MIMEOGRAPH OPERATOR Height 167.6 cm (5' 6) 09/11/2022 4:11 PM CDT Body Mass Index 43.09 09/11/2022 4:11 PM CDT Plan of Treatment Health Maintenance Due Date Last Done Comments MTM Targeted 1970 HepB (1) 10/02/1987 Pneumococcal (2 - PCV) 04/14/2018 04/14/2017 Diabetes: Foot Exam 02/08/2022 02/08/2021 (Completed ) COVID-19 Vaccine ( - season) 2022 11/28/2020, 06/19/2020 Influenza (#1) 2022 02/08/2021, 11/2019, 04/14/2017 Diabetes: HGBA1C 03/25/2023 12/23/2022, 05/2022, 10/23/2022, Additional history exists Diabetes: Urine Microalbumin 08/21/2023 08/20/2022, 02/08/2021, 01/04/2020 Diabetes: Creatinine 10/24/2023 10/23/2022, 02/08/2021, 08/04/2020, Additional history exists Cervical Cancer Screening 12/18/20232020, 08/27/2017 (Completed), 07/24/2017 Mammogram 04/02/2024 04/02/2023, 01/21, 01/30/2021, Additional history exists Diabetes: Eye Exam 04/28/2024 04/28/2023, 0 04/28/2023, 04/16/2021, Additional history exists Adult Preventive Visit 04/29/2024 04/29/2023, 2020 Diabetes: Lipid Panel 10/24/2027 10/23/2022 , 01/04/2020, 10/06/2019, Additional history exists DTaP/Tdap/Td (2 - Tdap) 06/27/2031 06/26/2021 Colonoscopy 11/20/2032 11/20/2022 HIV Screening (Preventive Services) Completed 06/27/2020 Hep C Screening (Preventive Services) Completed 09/13/2021 Zoster/Shingles Completed 09/13/2021, 12/17/2020 Cholesterol Discontinued 10/23/2022, 12/21, 10/06/2019, Additional history exists HepA Aged Out No longer eligi ble based on patient's age to complete this topic Hib Aged Out No longer eligi ble based on patient's age to complete this topic IPV (Polio) Aged Out No longer eligi ble based on patient's age to complete this topic MCV4 Aged Out No longer eligi ble based on patient's age to complete this topic Medical Devices Implanted Type Area Gaggerman Device Identifier Shelf Expiration Date Model / Serial / Lot Kit Leidy Burris Sys - [id number] Implanted:Qty: 1 on 02/19/2021 by Zoila Shaikh MBBS at [facility] DEVICE N/A: PELVIS [employer] 12/05/2021 [id number] / [id number] / [id number] Description:Polypropylene me sh- per [employer] Ent Gyrus Virk Torp-05/20/2005 Implanted: 006 (Quantity not on file) ENT EAR [id number] / / [id number] Description:Devices that are made from non-metallic materials (i.e. Implants and Ventilation Tubes made from DAVIS, Plasti-pore, Silicone, Fluoroplastic) are inherently non-conducting and non-magnetic and pose no known hazards in all MR environments and therefore are considered MR Safe. - Per [employer] Procedures Procedure Name Priority Date/Time Associated Diagnosis Comments US THYROID Routine 04/29/2023 2:31 PM MIMEOGRAPH OPERATOR Hypothyroidism, unspecified type (HRC) CHLAMYDIA & GC, URINE (14 YEARS AND OLDER) Routine 04/29/2023 10:11 AM MIMEOGRAPH OPERATOR Screen for STD (sexually transmitted disease) TSH, SENSITIVE Routine 04/28/2023 2:05 PM MIMEOGRAPH OPERATOR Hypothyroidism, unspecified type (HRC) MM MAMMOGRAM SCREENING BILAT W 3D SCOT W CAD Routine 04/02/2023 8:58 AM MIMEOGRAPH OPERATOR HGB A1C Routine 12/23/2022 11:40 AM CDT Type 2 diabetes mellitus without complication, without long-term current use of insulin (HRC) ENDOSCOPY, COLON, SCREENING/DIAGNOSTIC Routine 11/20/2022 7:03 AM CDT Annual physical exam COMPREHENSIVE METABOLIC PANEL Routine 10/23/2022 11:20 AM CDT Class 3 severe obesity due to excess calories with body mass index (BMI) of 45.0 to 49.9 in adult, unspecified whether serious comorbidity present (HRC) LIPID PANEL & DIRECT LDL (IF NEEDED) Routine 10/23/2022 11:20 AM CDT Mixed hyperlipidemia (HRC) ALBUMIN/CREAT RATIO Routine 08/20/2022 8 :36 AM CDT Type 2 diabetes mellitus without complication, without long-term current use of insulin (HRC) HEPATITIS C ANTIBODY, WITH REFLEX Routine 09/13/2021 11:05 AM CDT Need for hepatitis C screening test PAP TEST Routine 12/17/2020 3:56 PM CDT Screening for cervical cancer HIV 1/2 AG/AB 4TH GEN Routine 06/27/2020 8:04 AM CDT Screening for HIV (human immunodeficiency virus) from Last 3 Months or Most Recently Relevant to Health Maintenance Results * US Thyroid (04/29/2023 2:31 PM MIMEOGRAPH OPERATOR) Anatomical Region Laterality Modality Neck, Head Ultrasound 04/29/2023 2:11 PM MIMEOGRAPH OPERATOR Impressions 04/29/2023 4:30 PM MIMEOGRAPH OPERATOR COMPARISON: None. TECHNIQUE: Ultrasound examination of the [...] (14 Years and Older) (04/29/2023 10:11 AM MIMEOGRAPH OPERATOR) Chlamydia Trachomatis STD Not Detected Not Detected 04/30/2023 12:18 AM MIMEOGRAPH OPERATOR [facility] N. gonorrhoeae STD Not Detected Not Detected 04/30/2023 12:18 AM MIMEOGRAPH OPERATOR [facility] Urine STD (Urine for STD) Non-blood Collection / Unknown 04/29/2023 10:11 AM MIMEOGRAPH OPERATOR 04/29/2023 10:12 AM MIMEOGRAPH OPERATOR [facility] - 04/30/2023 12:18 AM MIMEOGRAPH OPERATOR Test performed by Billposting Supervisor Mediated Amplification (TMA). Elizabeth Herndon APRN, CNM LAB_1 [facility] [address] * (ABNORMAL) TSH (04/28/2023 2:05 PM MIMEOGRAPH OPERATOR) TSH, Sensitive 0.02(L) 0.30 - 4.50 uIU/mL 04/28/2023 8:01 PM MIMEOGRAPH OPERATOR [facility] Blood Venipuncture / Unknown 04/28/2023 2:05 PM MIMEOGRAPH OPERATOR 04/28/2023 2:05 PM MIMEOGRAPH OPERATOR Mikayla Sweeney MD LAB_1 [facility] [address] * MM Mammogram Screening Bilat W 3D Scot W CAD (04/02/2023 8:58 AM MIMEOGRAPH OPERATOR) Anatomical Region Laterality Modality Breast Bilateral Mammography Impressions 04/02/2023 10:15 AM MIMEOGRAPH OPERATOR : ACR BI-RADS Category 1: Negative RECOMMENDATION: Follow Up Imaging in 12 months - Bilateral The provided family history indicates that the patient might be at a high lifetime risk of breast cancer. Consider a formal risk assessment if not previously performed. The results and recommendations of this examination will be communicated to the patient. Narrative 04/02/2023 10:15 AM MIMEOGRAPH OPERATOR MM MAMMOGRAM SCREENING BILAT W 3D SCOT W CAD performed on 04/02/23 Compared to: 02/04/2022 MM Mammogram Screening Bilat W 3D Scot W CAD, 01/30/2021 MM Mammogram Screening Bilat W 3D Scot W CAD, and 01/09/2020 MM Mammogram Screening Bilat W 3D Scot W CAD ?? FINDINGS: Bilateral screening mammogram was performed with the assistance of Computer-Aided Detection and breast tomosynthesis. The breasts have scattered areas of fibroglandular density. There is no radiographic evidence of malignancy. ?? Kaykay Duarte STOCK GRADER, THERMAL CUTTING TRACER MACHINE OPERATOR RAD CARLOS * (ABNORMAL) HgbA1c - Collect in Lab (12/23/2022 11:40 AM CDT) Hemoglobin A1C (Rapid) 6.4(H) <=5.6 % 12/23/2022 1:46 PM CDT [facility] Estimated Average Glucose (Calc) 137 < 117 mg/dL 12/23/2022 1:46 PM T [facility] Comment:Estimated average gl ucose (eAG) converts A1c into glucose units (mg/dL) and estimates average glucose over the past approximately 3 months. The eAG reference interval (<117 mg/dL) corresponds to an A1c of <5.7%. Blood Venipuncture / Unknown 12/23/2022 11:40 AM CDT 12/23/2022 11:43 AM CDT Narrative [facility] - 12/23/2022 1:46 PM CDT For [...] for further direction. Mikayla Sweeney MD LAB_1 [facility] [address] [place] [address], [facility] [phone] * Endoscopy, colon, diagnostic (11/20/2022 7:03 AM CDT) 11/20/2022 7:03 AM CDT Narrative PN [facility] - 11/20/2022 7:03 AM CDT Patient Name: Billie Connolly Procedure Date: 11/20/2022 7:03 AM Date of : 1970 Admit Type: Outpatient Age: 52 Gender: Female Note Status: Finalized Attending MD: Nahomy Latham , Procedure: ? Colonoscopy Indications: ? Screening for colorectal malignant ? neoplasm Providers: ? Nahomy Latham, Eulalia Chávez RN Referring MD: ? Medicines: ? Fentanyl 200 micrograms IV, ? Midazolam 4 mg IV Complications: ? No immediate complications. Procedure: ? After I obtained informed consent, ? the scope was passed under direct ? vision. Throughout the procedure, ? the patient's blood pressure, ? pulse, and oxygen saturations were ? monitored continuously. The ? [id number] was introduced through ? the anus and advanced to the ? terminal ileum. The colonoscopy was ? performed without difficulty. The ? patient tolerated the procedure ? well. The quality of the bowel ? preparation was good after lavage ? and suction. Findings: ? The terminal ileum appeared normal. ? The colon (entire examined portion) appeared normal. ? Hemorrhoids were found during retroflexion. ? No additional abnormalities were found on ? retroflexion. Moderate Sedation: ? Moderate (conscious) sedation was administered by the ? endoscopy nurse and supervised by the endoscopist. ? The patient's oxygen saturation, heart rate, blood ? pressure and response to care were monitored. Total ? physician intraservice time was 30 minutes. ? This time is the duration from the initial medication ? administration until the network communications engineer assists with ? initial maneuvers (biopsy / polypectomy / etc.), or ? if no maneuvers are performed, until the endoscopist ? leaves the room. Impression: ?- The examined portion of the ileum ? was normal. ? - The entire examined colon is ? normal. ? - Hemorrhoids. ? - No specimens collected. Recommendation: ?- Repeat colonoscopy in 10 years ? for screening purposes. Procedure Code(s): ? --- Professional --- ? 45853, Colonoscopy, flexible; ? diagnostic, including collection of ? specimen(s) by brushing or washing, ? when performed (separate procedure) ? 33072, Moderate sedation; each ? additional 15 minutes intraservice ? time ? G0500, Moderate sedation services ? provided by the same physician or ? other qualified health care ? professional performing a ? gastrointestinal endoscopic service ? that sedation supports, requiring ? the presence of an independent ? trained observer to assist in the ? monitoring of the patient's level ? of consciousness and physiological ? status; initial 15 minutes of ? intra-service time; patient age 5 ? years or older (additional time may ? be reported with 43452, as ? appropriate) Diagnosis Code(s): ? --- Professional --- ? Z12.11, Encounter for screening for ? malignant neoplasm of colon ? K64.9, Unspecified hemorrhoids CPT copyright 2020 [employer]. All rights reserved. The codes documented in this report are preliminary and upon medical billing coder review may be revised to meet current compliance requirements. Nahomy Latham, 11/20/2022 8:02:54 AM This document has been electronically signed. Number of Addenda: 0 Note Initiated On: 11/20/2022 7:03 AM ? Endoscopy Report Procedure Note Nahomy Latham MD - 11/20/2022 Patient Name: Billie Connolly Procedure Date: 11/20/2022 7:03 AM Date of : 1970 Admit Type: Outpatient Age: 52 Gender: Female Note Status: Finalized Attending MD: Nahomy Latham , Procedure: Colonoscopy Indications: Screening for colorectal malignant neoplasm Providers: Nahomy Latham, Eulalia Chávez , SKIP Referring MD: Medicines: Fentanyl 200 micrograms IV, Midazolam 4 mg IV Complications: No immediate complications. Procedure: After I obtained informed consent, the scope was passed under direct vision. Throughout the procedure, the patient's blood pressure, pulse, and oxygen saturations were monitored continuously. The [id number] was introduced through the anus and advanced to the terminal ileum. The colonoscopy was performed without difficulty. The patient tolerated the procedure well. The quality of the bowel preparation was good after lavage and suction. Findings: The terminal ileum appeared normal. The colon (entire examined portion) appeared normal. Hemorrhoids were found during retroflexion. No additional abnormalities were found on retroflexion. Moderate Sedation: Moderate (conscious) sedation was administered by the endoscopy nurse and supervised by the endoscopist. The patient's oxygen saturation, heart rate, blood pressure and response to care were monitored. Total physician intraservice time was 30 minutes. This time is the duration from the initial medication administration until the network communications engineer assists with initial maneuvers (biopsy / polypectomy / etc.), or if no maneuvers are performed, until the endoscopist leaves the room. Impression: - The examined portion of the ileum was normal. - The entire examined colon is normal. - Hemorrhoids. - No specimens collected. Recommendation: - Repeat colonoscopy in 10 years for screening purposes. Procedure Code(s): --- Professional --- 80636, Colonoscopy, flexible; diagnostic, including collection of specimen(s) by brushing or washing, when performed (separate procedure) 38390, Moderate sedation; each additional 15 minutes intraservice time G0500, Moderate sedation services provided by the same physician or other qualified health healthcare economics manager performing a gastrointestinal endoscopic service that sedation supports, requiring the presence of an independent trained observer to assist in the monitoring of the patient's level of consciousness and physiological status; initial 15 minutes of intra-service time; patient age 5 years or older (additional time may be reported with 63868, as appropriate) Diagnosis Code(s): --- Professional --- Z12.11, Encounter for screening for malignant neoplasm of colon K64.9, Unspecified hemorrhoids CPT copyright 2020 [employer]. All rights reserved. The codes documented in this report are preliminary and upon medical billing coder review may be revised to meet current compliance requirements. Nahomy Latham, 11/20/2022 8:02:54 AM This document has been electronically signed. Number of Addenda: 0 Note Initiated On: 11/20/2022 7:03 AM Endoscopy Report Elizabeth Herndon APRN, CNM PN GI PROCEDUR E ORDERABLES PN [facility] * (ABNORMAL) Lipid Panel and Direct LDL(If Needed) (10/23/2022 11:20 AM CDT) Cholesterol 322(H) 0 - 199 mg/dL 10/23/2022 1:00 PM [facility] Triglyceride 205(H) <=149 mg/dL 10/23/2022 1:00 PM [facility] HDL Cholesterol 46 >=40 mg/dL 3 1:00 PM [facility] LDL, Calculated 235(H) <130 mg/dL 3 1:00 PM [facility] Non HDL Chol, Calculated 276(H) <=159 mg/dL 10/23/2022 1:00 PM [facility] Cholesterol/HDL Ratio 7.0 10/23/2022 1:00 PM [facility] Hours Fasting 0 10/23/2022 1:00 PM [facility] Blood Venipuncture / Unknown 10/23/2022 11:20 AM CDT 10/23/2022 11:39 AM CDT Mikayla Sweeney MD LAB_1 [facility] [address] [place] [address], [facility] [phone] * (ABNORMAL) Comp Metabolic Panel (10/23/2022 11:20 AM CDT) Sodium 139 136 - 145 mmol/L 10/23/2022 1:00 PM [facility] Potassium 4.3 3.5 - 5.1 mmol/L 10/23/2022 1:00 PM [facility] Chloride 105 98 - 109 mmol/L 10/23/2022 1:00 PM [facility] CO2 24 20 - 29 mmol/L 10/23/2022 1:00 PM [facility] Anion Gap 10 7 - 16 mmol/L 10/23/2022 1:00 PM [facility] Calcium 9.4 8.4 - 10.4 mg/dL 10/23/2022 1:00 PM [facility] BUN 17 7 - 26 mg/dL 10/23/2022 1:00 PM [facility] Creatinine 0.90 0.55 - 1.02 mg/dL 10/23/2022 1:00 PM [facility] Alkaline Phosphatase 73 40 - 150 U/L 10/23/2022 1:00 PM [facility] AST (SGOT) 16 10 - 40 U/L 10/23/2022 1:00 PM [facility] ALT (SGPT) 21 <=55 U/L 10/23/2022 1:00 PM [facility] Bilirubin, Total 0.4 0.2 - 1.2 mg/dL 10/23/2022 1:00 PM [facility] Protein, Total 7.0 6.4 - 8.3 g/dL 10/23/2022 1:00 PM [facility] Albumin 3.8 3.5 - 5.0 g/dL 10/23/2022 1:00 PM [facility] Glucose 123(H) 70 - 100 mg/dL 10/23/2022 1:00 PM [facility] Comment:The given reference range is for the fasting state. Non-fasting reference range for glucose is 70 - 180 mg/dL. Hours Fasting 0 10/23/2022 1:00 PM [facility] GFR, Estimated >60 >60 mL/min/1.7 3m2 10/23/2022 1:00 PM [facility] Blood Venipuncture / Unknown 10/23/2022 11:20 AM CDT 10/23/2022 11:39 AM CDT Geri Loza PA-C LAB_1 Performing Organization Address [facility] de Phone Number [place] [phone], [facility] [phone] * Albumin/Creatinine Ratio,Random Urine (08/20/2022 8:36 AM CDT) Pathologist [facility] Albumin/Creati nine Ratio, Urine, Random 10 <30 mg/g 08/20/2022 10:58 AM [facility] Albumin, Urine, Random 18.1 mg/L 08/20/2022 10:58 AM [facility] Creatinine, Urine, Random 182 >20 mg/dL mg/dL 08/20/2022 10:58 AM [facility] Urine Non-blood Collection / Unknown 08/20/2022 8:36 AM CDT 08/20/2022 9:30 AM CDT Mikayla Sweeney MD LAB_1 Performing Organization Address [facility]/ZIP Co de Phone Number [facility] [address] [place] [address], [facility] [phone] * Hepatitis C Antibody, with Reflex (09/13/2021 11:05 AM CDT) Pathologist [facility] Hepatitis C Antibody Negative (Non Reactive) Negative (Non Reactive) 09/13/2021 4:31 PM CDT [facility] Comment:Antibodies to HCV no t detected. Does not exclude the possiblity of exposure to HCV. Blood Venipuncture / Unknown 09/13/2021 11:05 AM CDT 09/13/2021 11:16 AM CDT Kaykay Duarte APRN, THERMAL CUTTING TRACER MACHINE OPERATOR LAB_1 [facility] [address] [place] [address], [facility] * PAP Test (12/17/2020 3:56 PM CDT) [facility] Case Report Pap ? Case: [id number] ? Authorizing Provider: ??Elizabeth Herndon APRN, ?Collected: ? 12/17/2020 1556 ? CNM ? Ordering Location: ? [facility] ? Received: ?12/17/2020 1742 ? Services-MEDICARE CONTACT SPECIALIST ? First Screen: ?Miriam Wade CT ? (ASCP) ? Specimen: ?Pap Test, Diagnostic, Cervix ? 12/26/2020 1:25 PM CDT [facility] Pap Specimen Adequacy Satisfactory for evaluation, endocervical/kerr sformation zone component absent. 12/26/2020 1:25 PM CDT [facility] Pap Interpretation Negative for intraepithelial lesion or malignancy (NILM). 12/26/2020 1:25 PM CDT [facility] Pap Disclaimer The Pap test is a screening test designed to aid in the detection of cervical cancer and its precursor lesions. It is not a diagnostic procedure and should not be used as the sole means of detecting cervical cancer. Both false-positive and false-negative results may occur. 12/26/2020 1:25 PM CDT [facility] Gross Description The specimen is received in SurePath fixative and properly labeled. 1 Pap-stained SurePath slide is prepared. 12/26/2020 1:25 PM CDT [facility] Embedded Images 1:25 PM CDT [facility] Other Specimen Type CERVICAL SWAB / Unknown 12/17/2020 3:56 PM CDT 12/17/2020 5:42 PM CDT Comment:LMP: No LMP recorded . (Menstrual status: IUD). Elizabeth Herndon APRN, CNM LAB PATHOLOGY Performing Organization Address [facility] Co de Phone Number [facility] [address] * HIV 1/2 Ag/Ab 4th Generation (06/27/2020 8:04 AM CDT) HIV 1/2 Antigen/Antib sherry (4th generation) Negative (Non Reactive) Negative (Non Reactive) 06/27/2020 12:45 PM CDT [facility] Comment:HIV-1 p24 Antigen an d HIV-1/HIV-2 Antibody not detected Blood Venipuncture / Unknown 06/27/2020 8:04 AM CDT 06/27/2020 8:09 AM CDT Kaykay Duarte APRN, LEAH LAB_1 Performing Organization Address [facility] de Phone Number [facility] [address] [place] [address] from Last 3 Months or Most Recently Relevant to Health Maintenance Advance Directives Latest Code Status on File Code Status Date Activated Date Inactivated Comments Full Code 08/09/2020 4:04 PM 08/10/2020 1:55 PM Care Teams Pharmacy Care Coordinator Relationship Specialty Start Date End Date Kaykay Duarte, STOCK GRADER, THERMAL CUTTING TRACER MACHINE OPERATOR [address] [place] [address] PCP - General Nurse Practitioner 10/25/21
--- OUTSIDE RECORDS SUMMARY | 2023-05-09 18:28 | XMS_ITS | Encounter Summary ---
Author Name Unknown Organization [facility] Address [address] [place] [address] Care Team Providers Care Professor Of German Name Role Phone Kaykay Duarte APRN, CNP Primary Care Provid er Reason for Referral * Procedure/Equipment (Routine) - Incomplete Specialty Diagnoses / Procedures Referred By Osmar gallego Referred To Contact Procedures MM Mammogram Screening Bilat W 3D Scot W Kaykay Severnio APRN, CNP [address] [place] [address] Referral ID Status Reason Start Date Expiration Date V isits Requested Visits Authorized [id number] Incomplete 04/02/2023 07/01/2024 1 1 [facility] Reason for Visit * Procedure/Equipment (Routine) - Incomplete Specialty Diagnoses / Procedures Referred By Osmar gallego Referred To Contact Procedures MM Mammogram Screening Bilat W 3D Scot W CAD Kaykay Duarte APRN, CNP [address] [place] [address] Referral ID Status Reason Start Date Expiration Date V isits Requested Visits Authorized [id number] Incomplete 04/02/2023 07/01/2024 1 1 Encounter Details Date Type Department Care Team ([facility] st Contact Info) Description 04/02/2023 8:40 AM MEMBER OF CONGRESS Ancillary Procedure [address] [place] [address] Social History Tobacco Use Types Packs/Day Years [...] Procedure Name Priority Date/Time Associated Diagnosis Comments MM MAMMOGRAM SCREENING BILAT W 3D SCOT W CAD Routine 04/02/2023 8:58 AM MEMBER OF CONGRESS documented in this encounter Results * MM Mammogram Screening Bilat W 3D Scot W CAD (04/02/2023 8:58 AM MEMBER OF CONGRESS) Anatomical Region Laterality Modality Breast Bilateral Mammography Impressions 04/02/2023 10:15 AM MEMBER OF CONGRESS : ACR BI-RADS Category 1: Negative RECOMMENDATION: Follow Up Imaging in 12 months - Bilateral The provided family history indicates that the patient might be at a high lifetime risk of breast cancer. Consider a formal risk assessment if not previously performed. The results and recommendations of this examination will be communicated to the patient. Narrative 04/02/2023 10:15 AM MEMBER OF CONGRESS MM MAMMOGRAM SCREENING BILAT W 3D SCOT [...] radiographic evidence of malignancy. ?? Kaykay Duarte APRN, CNP RAD CRALOS documented in this encounter Visit Diagnoses Not on filedocumented in this encounter Care Teams Professor Of German Relationship Specialty Start Date End Date Kaykay Duarte APRN, CNP [address] [place] [address] PCP - General Nurse Practitioner 10/25/21 documented as of this encounter
--- OUTSIDE RECORDS SUMMARY | 2023-05-09 18:28 | XMS_ITS | Encounter Summary ---
Author Name Unknown Organization [facility] Address [address] [address] Care Team Providers Care Savings Counselor Name Role Phone Kaykay Duarte APRN, LEAH Primary Care Provid er Encounter Details Date Type Department Care Team (Late st Contact Info) Description 12/23/2022 11:40 AM CDT Lab Visit [facility] [id number] [place] [phone] Type 2 diabetes mellitus without complication, without long-term current use of insulin (HRC); Hypothyroidism, unspecified type (HRC) Social History Tobacco [...] Date/Time Associated Diagnosis Comments TSH, SENSITIVE Routine 12/23/2022 11:40 AM CDT Hypothyroidism, unspecified type (HRC) HGB A1C Routine 12/23/2022 11:40 AM CDT Type 2 diabetes mellitus without complication, without long-term current use of insulin (HRC) documented in this encounter Results * (ABNORMAL) TSH (12/23/2022 11:40 AM CDT) TSH, Sensitive 0.02(L) 0.30 - 4.50 uIU/mL 12/23/2022 6:10 PM CDT [facility] Blood Venipuncture / Unknown 12/23/2022 11:40 AM CDT 12/23/2022 11:43 AM CDT Mikayla Sweeney MD LAB_1 Performing Organization Address City/State/[facility] Co de Phone Number [facility] [address] * (ABNORMAL) HgbA1c - Collect in Lab (12/23/2022 11:40 AM CDT) Hemoglobin A1C (Rapid) 6.4(H) <=5.6 % 12/23/2022 1:46 PM CDT [facility] Estimated Average Glucose (Calc) 137 < 117 mg/dL 12/23/2022 1:46 PM CDT [facility] Comment:Estimated average gl ucose (eAG) converts A1c into glucose units (mg/dL) and estimates average glucose over the past approximately 3 months. The eAG reference interval (<117 mg/dL) corresponds to an A1c of <5.7%. Blood Venipuncture / Unknown 12/23/2022 11:40 AM CDT 12/23/2022 11:43 AM CDT Narrative [facility] - 12/23/2022 1:46 PM CDT For [...] direction. Mikayla Sweeney MD LAB_1 [facility] [address] [place] [address], [facility] [phone] documented in this encounter Visit Diagnoses Diagnosis Type 2 diabetes mellitus without complication, without long-term current use of insulin (HRC) Hypothyroidism, unspecified type (HRC) documented in this encounter Care Teams Savings Counselor Relationship Specialty Start Date End Date Kaykay Duarte, WINDOWS APPLICATION PACKAGER, YOGHURT MAKER [address] [place] [address] PCP - General Nurse Practitioner 10/25/21 documented as of this encounter
--- OUTSIDE RECORDS SUMMARY | 2023-05-09 18:28 | XMS_ITS | Encounter Summary ---
Author Name Unknown Organization [facility] Address [address], [place] [address] Care Team Providers Care Drilling Plant Operator Name Role Phone Kaykay Duarte APRN, CNP Primary Care Provid er Reason for Visit * Reason Comments Letter Encounter Details Date Type Department Care Team (Late st Contact Info) Description 01/26/2023 Telephone [facility] [address] [place] [address] Kaykay Duarte APRN, CNP [address] [place], [place] [id number] Letter Social History Tobacco Use Types Packs/Day Years [...] as of this encounter Nursing Notes * Carlotta Phillips - 01/26/2023 12:30 PM CST Forms & Letters - In Process Type of form: Letter/Other Form Patient requested on mychart form(s) to clinic on 01/22. Patient has a question: would like letter faxed again to [phone]. States clinic has not received letter yet. Is it okay to leave a detailed message on your voicemail? No WORK MANAGER documented in this encounter Plan of Treatment Not on file documented as of this encounter Visit Diagnoses Not on filedocumented in this encounter Care Teams Drilling Plant Operator Relationship Specialty Start Date End Date Kaykay Duarte, YOKER, DIGITAL ASSOCIATE MEDIA DIRECTOR [address] [place] [address] PCP - General Nurse Practitioner 10/25/21 documented as of this encounter
--- OUTSIDE RECORDS SUMMARY | 2023-05-09 18:28 | XMS_ITS | Encounter Summary ---
Author Name Unknown Organization [facility] Address [address] [address] Care Team Providers Care Molding Machine Operator Helper Name Role Phone Kaykay Duarte APRN, CNP Primary Care Provid er Reason for Visit * Reason Comments Letter Encounter Details Date Type Department Care Team (Late st Contact Info) Description 01/22/2023 Telephone [facility] [address] [place] [address] Kaykay Duarte APRN, COLLET DRILLER [address] [place], [place] [address] Letter Social History Tobacco Use Types Packs/Day [...] as of this encounter Nursing Notes * Henny Connolly, SHANIA - 01/22/2023 4:07 PM CDT Letter faxed; patient notified. * Kaykay Duarte APRN, CNP - 01/22/2023 3:38 PM CDT Please let pt know that letter has been completed and is in my outbox. Please send as directed in note below. * Evan Angel Marci - 01/22/2023 11:28 AM CDT Patient sent a [employer] Message for Surgery regarding a letter needed from PCP. See [employer] Message from 01/22/2023. Letter that is needed, from PCP is below. Patient can be called if there are questions at , can leave voicemail. Dear Primary Care Provider: Re: Billie Connolly : 1970 Thank you for coordinating with us to evaluate your patient for possible bariatric surgery. It is important to us that the primary care provider is aware of their patients' desire to have weight losssurgery and is supportive. Please enter a letter of support via [employer] or fax to Radha Dominguez RN at [phone] prior to the patient's next visit in our clinic. Our mutual patient will also meet with our anesthesia team prior to surgery for a pre-op history and physical. Sample letter: Dear Weight Loss Surgery Clinic, I am the primary care provider for (patient name) and I support (him/her) having weight loss surgery. Sincerely, (provider name) If patient meets criteria and clearances for surgery, we will submit to the insurance company for insurance approval and coordinate the needed appointments with our department. If you have any questions, feel free to contact us via our Call Center at [phone]. Please fax the evaluation to [phone] or route via [employer] to Radha Dominguez RN. SincerelLuis A vargas MD Sayeed Ikramuddin, MD Eric Wise, MD Kristi Kopacz, CHRISTO Flowers, LEAH, CHRISTO Stewart PA-C Mailing Address: [facility] [address] [place] [address], [facility], [facility] [place] [address] documented in this encounter Plan of Treatment Not on file documented as of this encounter Visit Diagnoses Not on filedocumented in this encounter Care Teams Molding Machine Operator Helper Relationship Specialty Start Date End Date Kaykay Duarte, LEAH [place]UENTES [address] [place] [place] [address] PCP - General Nurse Practitioner 10/25/21 documented as of this encounter
--- OUTSIDE RECORDS SUMMARY | 2023-05-09 18:29 | XMS_ITS | Encounter Summary ---
Author Name Unknown Organization [facility] Address [address], [place] [address] Care Team Providers Care Property Economist Name Role Phone Kaykay Duarte APRN, LEAH Primary Care Provid er Reason for Visit * Reason Comments Follow-up Encounter Details Date Type Department Care Team (Late st Contact Info) Description 08/21/2022 1:30 PM CDT Telemedicine [place] [address] [place] [address]. [place] [address] [place] [address] [place] [address] Type 2 diabetes mellitus without complication, without long-term current use of insulin (HRC) (Primary Dx); Mixed hyperlipidemia (HRC); Hypothyroidism, unspecified type (HRC); Morbid obesity with body mass index (BMI) of 50.0 to 59.9 in adult (HRC) Social History Tobacco Use Types Packs/Day [...] PHQ-2 Answer Date Recorded PHQ-2 Score 0 06/20/2021 Sex and Gender Information Value Date Recorded Sex Assigned at Not on file Gender Identity Not on file Sexual Orientation Not on file documented as of this encounter Progress Notes * Federica Marinelli RN - 08/21/2022 1:30 PM CDT 08/19 Lvm for prep * Alexandrea Vaca RN - 08/21/2022 1:30 PM CDT Pre-Visit Planning for Phone/Video Visit: Diabetes Pre-visit planning completed. Reviewed the following: Medications (pended refills) Pharmacy Allergies Last foot & eye exam Tobacco/alcohol use Pt does not test BG * Mikayla Sweeney MD - 08/21/2022 1:30 PM CDT [facility]ocr[facility], [facility] [place] [address], Ph. [phone] August 21, 2022 CC: type 2 diabetes Scheduled video visit Interval History: No s/e on Mounjaro 15 mg. Has not lost weight. Has appetite suppression. Biggest meal of the day isbreakfast and lunch. Not much dinner as she does not feel hungry. Last week was seen at the bariatric clinic at [place]. They did not have any input on medication options. She also saw Cardiology who recommended she try metformin or Jardiance for insulin resistance ???. She stopped Novolog 1:50 above 150 and Jardiance 10 mg daily Metformin caused diarrhea Current diabetes regimen: Mounjaro 15 mg weekly (this dose x 2-3 months) Glucose data: None. Lost meter. Exam: General: NAD HENT: NC, AT Eyes: EOMI MSK: ambulatory, no MARGIE Skin: warm, dry Labs: Latest Reference Range & Units 08/20/22 08:40 HGB A1C <=5.6 % 7.2 (H) Latest Reference Range & Units 08/20/22 08:36 Alb/Creat Ratio, Urine, Random <30 mg/g 10 Latest Reference Range & Units 08/20/22 08:36 TSH, Sensitive 0.30 - 4.50 uIU/mL 18.64 (H) (H): Data is abnormally high Assessment/Plan: 1. Type 2 diabetes. diagnosed about 1.5 yrs ago,. Off insulin now. She has tried and failed Victoza and Bydureon. Has not lost weight on Mounjaro to 15 mg weekly but A1c is improving. Did not tolerate metformin. Continue Mounjaro. Refilled. 2. Obesity. Add Contrave. S/e reviewed. Did not tolerate Qsymia in past (High HR and spacy. She would like to avoid another bariatric surgery if possible she is status post gastric sleeve. 3. Hypothyroidism. Increase levothyroxine to 225 mcg daily 4. Lipids added to recent lab draw. Follow up: 3 mos with A1c and TSH prior This visit was conducted via video. Location of clinician home. Location of patient work. Billing based on: Complexity Mikayla Sweeney MD documented in this encounter Plan of Treatment Not on file documented as of this encounter Results * (ABNORMAL) TSH (10/23/2022 11:20 AM CDT) TSH, Sensitive 47.82(H) 0.30 - 4.50 uIU/mL 10/23/2022 6:50 PM CDT [facility] Blood Venipuncture / Unknown 10/23/2022 11:20 AM CDT 10/23/2022 11:39 AM CDT Mikayla Sweeney MD LAB_1 [facility] [address] [place], [place] [address] [place] [address] * (ABNORMAL) HgbA1c - Collect in Lab (10/23/2022 11:20 AM CDT) Hemoglobin A1C (Rapid) 7.0(H) <=5.6 % 10/23/2022 12:19 PM [facility] Estimated Average Glucose (Calc) 154 < 117 mg/dL 10/23/2022 12:19 PM [facility] Comment:Estimated average gl ucose (eAG) converts A1c into glucose units (mg/dL) and estimates average glucose over the past approximately 3 months. The eAG reference interval (<117 mg/dL) corresponds to an A1c of <5.7%. Blood Venipuncture / Unknown 10/23/2022 11:20 AM CDT 10/23/2022 11:39 AM CDT [facility] - 10/23/2022 12:19 PM CDT For patients not previously diagnosed [...] for further direction. Mikayla Sweeney MD LAB_1 [facility] [address] [place] [address], [facility] [phone] * (ABNORMAL) Lipid Panel and Direct LDL(If Needed) (10/23/2022 11:20 AM CDT) Cholesterol 322(H) 0 - 199 mg/dL 10/23/2022 1:00 PM [facility] Triglyceride 205(H) <=149 mg/dL 10/23/2022 1:00 PM [facility] HDL Cholesterol 46 >=40 mg/dL 3 1:00 PM [facility] LDL, Calculated 235(H) <130 mg/dL 3 1:00 PM [facility] Non HDL Chol, Calculated 276(H) <=159 mg/dL 10/23/2022 1:00 PM [facility] Cholesterol/HDL Ratio 7.0 10/23/2022 1:00 PM T [facility] Hours Fasting 0 10/23/2022 1:00 PM [facility] Blood Venipuncture / Unknown 10/23/2022 11:20 AM CDT 10/23/2022 11:39 AM CDT Mikayla Sweeney MD LAB_1 [facility] [address] [place] [address], [facility] [phone] documented in this encounter Visit Diagnoses Diagnosis Type 2 diabetes mellitus without complication, without long-term current use of insulin (HRC)- Primary Mixed hyperlipidemia (HRC) Mixed hyperlipidemia Hypothyroidism, unspecified type (HRC) Morbid obesity with body mass index (BMI) of 50.0 to 59.9 in adult (HRC) documented in this encounter Care Teams Property Economist Relationship Specialty Start Date End Date Kaykay Duarte APRN, FIRST BEATER [address] [place] [address] PCP - General Nurse Practitioner 10/25/21 documented as of this encounter
--- OUTSIDE RECORDS SUMMARY | 2023-05-09 18:29 | XMS_ITS | Encounter Summary ---
Author Name Unknown Organization [facility] Address [address], [place] [address] Care Team Providers Care Paramedic Supervisor Name Role Phone Kaykay Duarte APRN, LEAH Primary Care Provid er Encounter Details Date Type Department Care Team (Late st Contact Info) Description 11/17/2022 Notes/Orders Specialty Center [facility] Gastroenterology [address] [place] [address]. [place] [address] Nahomy Latham MD [address] [place] [address] Social History Tobacco Use Types Packs/Day Years [...] on filedocumented in this encounter Care Teams Paramedic Supervisor Relationship Specialty Start Date End Date Kaykay Duarte, GINA, NURSE WOUND [address] [place] [address] PCP - General Nurse Practitioner 10/25/21 documented as of this encounter
--- OUTSIDE RECORDS SUMMARY | 2023-05-09 18:29 | XMS_ITS | Encounter Summary ---
Author Name Unknown Organization [facility] Address [address], [place] [address] Care Team Providers Care Hadoop Software Engineer Name Role Phone Kaykay Duarte APRN, LEAH Primary Care Provid er Reason for Visit * Reason Comments Cough Encounter Details Date Type Department Care Team ([facility] st Contact Info) Description 10/31/2022 2:40 PM CDT Office Visit [facility] [address] [place] [address] [place] [address] [place] [address] SARS-CoV-2 positive Social History Tobacco Use Types Packs/Day Years [...] Sign Reading Time Taken Comments Blood Pressure 118/73 10/31/2022 2:29 PM CDT Pulse 100 10/31/2022 3:07 PM CDT Temperature 39.3 ??C (102.7 ??F) 10/31/2022 2:29 PM C DT Respiratory Rate 24 10/31/2022 2:29 PM CDT Oxygen Saturation 98% 10/31/2022 3:07 PM CDT Inhaled Oxygen Concentration - - Weight - - Height - - Body Mass Index - - documented in this encounter Progress Notes * Domingo Laureano MD - 10/31/2022 2:40 PM CDT SUBJECTIVE: Billie Connolly is a 52 y.o.female Chief Complaint: Chief Complaint Patient presents with Cough HPI: 52 years old female she is coming today to clinic she complained that she has upper respiratory symptom nose cough congestion headache body ache muscle ache joint ache. And she been tested she came positive for COVID. According to the patient this is her 2nd history of COVID last time it was so bad that she need to be hospitalized. So far she did not took any medication she just came almost from work direct to here. She has history of asthma history of type 2 diabetes mellitus, prolonged QT hypothyroid the obesity the rest of her past medical history reviewed with the patient as below. ROS: Complete ROS was negative other than what was cited above. Social History: Social History Tobacco Use Smoking status: Never Smokeless tobacco: Never Vaping Use Vaping Use: Never used Substance Use Topics Alcohol use: Not Currently Alcohol/week: 0.0 standard drinks Drug use: No Past Medical History: Patient Active Problem List Diagnosis Hypothyroidism (HRC) Chronic low back pain (HRC) Gastroesophageal reflux disease with esophagitis Restless legs syndrome Mild intermittent asthma without complication (HRC) Mixed hyperlipidemia (HRC) OAB (overactive bladder) Morbid obesity with body mass index (BMI) of 50.0 to 59.9 in adult (HRC) Cervical high risk HPV (human papillomavirus) test positive Severe obstructive sleep apnea Type 2 diabetes mellitus without complication, without long-term current use of insulin (HRC) Hx of hemorrhoids S/P laparoscopic sleeve gastrectomy Nocturia QT prolongation Insulin long-term use (HRC) Adverse Drug Reactions: Patient has no known allergies. Medications: ALBUterol sulfate HFA, Accu-Chek Guide, albuterol 2.5 mg/3 mL (0.083%), blood glucose,celecoxib, cyanocobalamin, estradiol, gabapentin, insulin pen needle, lancets, levonorgestrel, levothyroxine, mometasone- formoterol, naltrexone-buPROPion ER, omeprazole, oxyCODONE-acetaminophen, rOPIN IRole, tiZANidine, and tirzepatide OBJECTIVE: Vital Signs: BP 118/73 (BP Location: Left Arm, BP Cuff Size: Regular - Long) Pulse 100 Temp (!)39.3 ??C (102.7 ??F) (Oral) Resp 24 SpO2 98% . General: Objective for vital signs stable with except her temperature is 102.7 her pulse is 100 HEENT: Deny Lymphatic: No enlarged lymph Chest: Rhonchi Heart: Regular Abdomen: Obese Musculoskeletal: Deny Skin: Deny problem Neurological: No focal deficit Psychiatric: Deny Labs: @EDLABS@ X-Rays: No results found. ASSESSMENT: Positive COVID today Some risk factor with her past medical health problem owned her last hospitalization for COVID PLAN: O2 saturation is ninety-eight with activities. She want to have the antiviral medication we gave her the number to call and they will decide if she qualified or not otherwise supportive care if is worse any breathing difficulty any concern go to emergency room she understands except that @EDMEDS@ Medications Prescribed this Visit None Discharge instructions are on file. The patient was discharged ambulatory and in stable condition. Sx started yesterday; positive Covid test today. Pt reports cough, exertional SOB, ST, runny nose, chills, body aches, and fever. Pt states her O2 decreases to 87-89% when laying down. Pt informed our providers don't prescribe anti-virals. documented in this encounter Nursing Notes * Mikayla Timmons, RN - 10/31/2022 2:40 PM CDT Sx started yesterday; positive Covid test today. Pt reports cough, exertional SOB, ST, runny nose, chills, body aches, and fever. Pt states her O2 decreases to 87-89% when laying down. Pt informed our providers don't prescribe anti-virals. documented in this encounter Plan of Treatment Not on file documented as of this encounter Visit Diagnoses Diagnosis SARS-CoV-2 positive documented in this encounter Care Teams Hadoop Software Engineer Relationship Specialty Start Date End Date Kaykay Duarte APRN, DIRECTOR OF KNOWLEDGE MANAGEMENT [address] [place] [address] PCP - General Nurse Practitioner 10/25/21 documented as of this encounter
--- OUTSIDE RECORDS SUMMARY | 2023-05-09 18:29 | XMS_ITS | Encounter Summary ---
Author Name Unknown Organization [facility] Address [address] [place] [address] Care Team Providers Care Knitter Wire Mesh Name Role Phone Kaykay Duarte APRN, LEAH Primary Care Provid er Reason for Visit * Reason Comments VOMITING, BLOOD Encounter Details Date Type Department Care Team (Late st Contact Info) Description 06/21/2022 Nurse Triage Careline [address] [place], [place] [phone] Unassigned, Provider [address] [place] [address] VOMITING, BLOOD Social History Tobacco Use Types Packs/Day Years [...] as of this encounter Nursing Notes * Carol Stephens RN - 06/21/2022 3:15 AM CDT Verified patient identity: Yes Situation/Background (brief explanation of current symptoms/situation): Pt states they had gastric sleeve two years ago and are vomiting blood tonight. Reviewed with patient pertinent medical history (as it related to the call): Yes Reviewed with patient pertinent medications (as they relate to call): Yes Reviewed with patient pertinent allergies (as they relate to call): Yes Reason for Disposition Weak, dizzy or lightheaded Answer Assessment - Initial Assessment Questions 1. APPEARANCE of BLOOD: What does the blood look like? (e.g., color, coffee-grounds) States vomit is brown, denies coffee ground appearance, states when they empty vomit into the toilet, they see blood in vomit. 2. AMOUNT: How much blood was lost? Unknown 3. VOMITING BLOOD: How many times did it happen? or How many times in the past 24 hours? *No Answer* 4. VOMITING WITHOUT BLOOD: How many times in the past 24 hours? *No Answer* 5. ONSET: When did vomiting of blood begin? Tonight 6. CAUSE: What do you think is causing the vomiting of blood? Unknown 7. BLOOD THINNERS: Do you take any blood thinners? (e.g., Coumadin/warfarin, Pradaxa/dabigatran, aspirin) Denies 8. DEHYDRATION: Are there any signs of dehydration? When was the last time you urinated? Do you feel dizzy? *No Answer* 9. ABDOMINAL PAIN: Are you having any abdominal pain? If Yes, ask: What does it feel like? (e.g., crampy, dull, intermittent, constant) Yes 10. DIARRHEA: Is there any diarrhea? If Yes, ask: How many times today? Yes, denies blood in stool 11. OTHER SYMPTOMS: Do you have any other symptoms? (e.g., fever, blood in stool) *No Answer* 12. : Is there any chance you are ? When was your last menstrual period? *No Answer* Protocols used: Vomiting [id number] Advised patient/caller to call back CareLine if there are further questions or concerns or to be seen if situation becomes emergent. The CareLine is available 13/10. Carol Amezcua RN Careline 3:32 AM 06/21/2022 * Monse Hidalgo 06/21/2022 3:12 AM CDT Verified patient identity using three identifiers: Yes Caller's relationship to patient: Self Do you get your primary care at a HP or PN clinic: PN Are you calling about a related concern: No Do you see a PN specialist for the reason you are calling? Yes HP Select Member: No Are you calling about a positive COVID result: No Symptoms Describe the reason for call/symptoms (include location and duration if applicable): Patient had a gastric sleeve, vomiting blood Plan:Caller transferred directly to CareLine nurse. documented in this encounter Plan of Treatment Not on file documented as of this encounter Visit Diagnoses Not on filedocumented in this encounter Care Teams Knitter Wire Mesh Relationship Specialty Start Date End Date Kaykay Duarte APRN, CHANNEL SUPERVISOR [address] [place] [address] PCP - General Nurse Practitioner 10/25/21 documented as of this encounter
--- OUTSIDE RECORDS SUMMARY | 2023-05-09 18:29 | XMS_ITS | Encounter Summary ---
Author Name Unknown Organization [facility] Address [address] [place] [address] Care Team Providers Care Turntable Operator Name Role Phone Kaykay Duarte APRN, LEAH Primary Care Provid er Encounter Details Date Type Department Care Team (Late st Contact Info) Description 10/23/2022 11:20 AM CDT Lab Visit [facility] [address] [place] [address] Mixed hyperlipidemia (HRC); Type 2 diabetes mellitus without complication, without long-term current use of insulin (HRC); Hypothyroidism, unspecified type (HRC); Class 3 severe obesity due to excess calories with body mass index (BMI) of 45.0 to 49.9 in adult, unspecified whether serious comorbidity present (HRC) Social History Tobacco Use Types Packs/Day [...] Name Priority Date/Time Associated Diagnosis Comments CBC AND DIFFERENTIAL PANEL Routine 10/23/2022 11:20 AM CDT Class 3 severe obesity due to excess calories with body mass index (BMI) of 45.0 to 49.9 in adult, unspecified whether serious comorbidity present (HRC) VITAMIN A Routine 10/23/2022 11:20 AM CDT Class 3 severe obesity due to excess calories with body mass index (BMI) of 45.0 to 49.9 in adult, unspecified whether serious comorbidity present (HRC) LIPID PANEL & DIRECT LDL (IF NEEDED) Routine 10/23/2022 11:20 AM CDT Mixed hyperlipidemia (HRC) VITAMIN D 25-HYDROXY, TOTAL Routine 10/23/2022 11:20 AM CDT Class 3 severe obesity due to excess calories with body mass index (BMI) of 45.0 to 49.9 in adult, unspecified whether serious comorbidity present (HRC) INTACT PTH Routine 10/23/2022 11:20 AM CDT Class 3 severe obesity due to excess calories with body mass index (BMI) of 45.0 to 49.9 in adult, unspecified whether serious comorbidity present (HRC) COMPLETE BLOOD COUNT-W/DIFF Routine 10/23/2022 11:20 AM CDT Class 3 severe obesity due to excess calories with body mass index (BMI) of 45.0 to 49.9 in adult, unspecified whether serious comorbidity present (HRC) COMPREHENSIVE METABOLIC PANEL Routine 10/23/2022 11:20 AM CDT Class 3 severe obesity due to excess calories with body mass index (BMI) of 45.0 to 49.9 in adult, unspecified whether serious comorbidity present (HRC) TSH, SENSITIVE Routine 10/23/2022 11:20 AM CDT Hypothyroidism, unspecified type (HRC) FERRITIN Routine 10/23/2022 11:20 AM CDT Class 3 severe obesity due to excess calories with body mass index (BMI) of 45.0 to 49.9 in adult, unspecified whether serious comorbidity present (HRC) HGB A1C Routine 10/23/2022 11:20 AM CDT Type 2 diabetes mellitus without complication, without long-term current use of insulin (HRC) VITAMIN B12 ONLY Routine 10/23/2022 11:2 0 AM CDT Class 3 severe obesity due to excess calories with body mass index (BMI) of 45.0 to 49.9 in adult, unspecified whether serious comorbidity present (HRC) documented in this encounter Results * (ABNORMAL) Complete Blood Count-W/Diff (10/23/2022 11:20 AM CDT) WBC 6.7 3.5 - 10.5 x10(9)/L 10/23/2022 11:45 AM [facility] RBC 5.19(H) 3.90 - 5.03 x10(12)/L 10/23/2022 11:45 AM [facility] Hemoglobin 14.2 12.0 - 15.5 g/dL 10/23/2022 11:45 AM [facility] HCT 45.3(H) 34.9 - 44.5 % 10/23/2022 11:45 AM [facility] MCV 87.3 80.0 - 100.0 fL 10/23/2022 11:45 AM [facility] MCH 27.4(L) 27.6 - 33.3 pg 10/23/2022 11:45 AM [facility] MCHC 31.3(L) 31.5 - 35.2 g/dL 10/23/2022 11:45 AM [facility] RDW 13.6 11.9 - 15.5 % 10/23/2022 11:45 AM [facility] Platelets 226 150 - 450 x10(9)/L 10/23/2022 11:45 AM [facility] Automated NRBC 0 <=0 /100 WBC 10/23/2022 11:45 AM CDT [facility] Neutrophil Absolute 4.5 1.7 - 7.0 10(9)/L 10/23/2022 11:45 AM CDT [facility] Lymphocyte Absolute 1.3 1.0 - 4.8 10(9)/L 10/23/2022 11:45 AM CDT [facility] Monocyte Absolute 0.5 0.2 - 0.9 10(9)/L 10/23/2022 11:45 AM CDT [facility] Eosinophil Absolute 0.2 0.0 - 0.5 10(9)/L 10/23/2022 11:45 AM CDT [facility] Basophil Absolute 0.1 0.0 - 0.3 10(9)/L 10/23/2022 11:45 AM CDT [facility] Immature Granulocyte % 0.6(H) 0.0 - 0.5 % 10/23/2022 11:45 AM CDT [facility] Blood Venipuncture / Unknown 10/23/2022 11:20 AM CDT 10/23/2022 11:39 AM CDT Geri Loza PA-C LAB_1 [facility] [address] [place] [address] [phone] * Ferritin (10/23/2022 11:20 AM CDT) Ferritin 88 9 - 204 ng/mL 10/23/2022 6:50 PM CDT [facility] Blood Venipuncture / Unknown 10/23/2022 11:20 AM CDT 10/23/2022 11:39 AM CDT Geri Loza PA-C LAB_1 [facility] [address] [place], [place] [id number] [place] [address] * (ABNORMAL) Comp Metabolic Panel (10/23/2022 11:20 AM CDT) Sodium 139 136 - 145 mmol/L 10/23/2022 1:00 PM [facility] Potassium 4.3 3.5 - 5.1 mmol/L 10/23/2022 1:00 PM [facility] Chloride 105 98 - 109 mmol/L 10/23/2022 1:00 PM [facility] CO2 24 20 - 29 mmol/L 10/23/2022 1:00 PM [facility] Anion Gap 10 7 - 16 mmol/L 10/23/2022 1:00 PM [facility] Calcium 9.4 8.4 - 10.4 mg/dL 10/23/2022 1:00 PM [facility] BUN 17 7 - 26 mg/dL 10/23/2022 1:00 PM [facility] Creatinine 0.90 0.55 - 1.02 mg/dL 10/23/2022 1:00 PM [facility] Alkaline Phosphatase 73 40 - 150 U/L 10/23/2022 1:00 PM [facility] AST (SGOT) 16 10 - 40 U/L 10/23/2022 1:00 PM [facility] ALT (SGPT) 21 <=55 U/L 10/23/2022 1:00 PM [facility] Bilirubin, Total 0.4 0.2 - 1.2 mg/dL 10/23/2022 1:00 PM [facility] Protein, Total 7.0 6.4 - 8.3 g/dL 10/23/2022 1:00 PM [facility] Albumin 3.8 3.5 - 5.0 g/dL 10/23/2022 1:00 PM [facility] Glucose 123(H) 70 - 100 mg/dL 10/23/2022 1:00 PM [facility] Comment:The given reference range is for the fasting state. Non-fasting reference range for glucose is 70 - 180 mg/dL. Hours Fasting 0 10/23/2022 1:00 PM [facility] GFR, Estimated >60 >60 mL/min/1.7 3m2 10/23/2022 1:00 PM [facility] Blood Venipuncture / Unknown 10/23/2022 11:20 AM T 10/23/2022 11:39 AM CDT Geri Loza JAIEddaGoldie LAB_1 [facility] [address] [place] [address] [phone] * Intact PTH (10/23/2022 11:20 AM CDT) Intact PTH 65 10 - 100 pg/mL 10/23/2022 6:22 PM CDT [facility] Blood Venipuncture / Unknown 10/23/2022 11:20 AM CDT 10/23/2022 11:39 AM CDT Geri Loza JAIEddaGoldie LAB_1 Performing Organization Address [facility] Co de Phone Number [facility] [address] * Vitamin A (Retinol) (10/23/2022 11:20 AM CDT) Retinol (Vitamin A) 0.82 0.30 - 1.20 mg/L 10/27/2022 5:39 AM CDT [facility] [employer] Retinyl Palminate 0.03 0.00 - 0.10 mg/L 10/27/2022 5:39 AM CDT [facility] [employer] Vitamin A Interp Normal 10/28/19 5:39 AM CDT [facility] [employer] Comment: This test was developed and its performance characteristics determined by [facility] [facility]. It has not been cleared or approved by the [place] Food and Drug Administration. This test was performed in a CLIA certified laboratory and is intended for clinical purposes. Performed By: [facility] [address] [place] [id number] Sewing Machine Tester: Rambo Isbell MD, PhD CLIA Number: [id number] Blood Venipuncture / Unknown 10/23/2022 11:20 AM CDT 10/23/2022 11:39 AM CDT Geri Loza JAIEddaGoldie LAB_1 Performing Organization Address City/[facility]/ZIP Co de Phone Number [address] [address] [place] [address] * (ABNORMAL) Vitamin D 25-Hydroxy, Total (10/23/2022 11:20 AM CDT) Vitamin D, 25-OH, Total 26(L) 30 - 80 ng/mL 10/23/2022 6:27 PM CDT [facility] Blood Venipuncture / Unknown 10/23/2022 11:20 AM CDT 10/23/2022 11:39 AM CDT Narrative [facility] - 10/23/2022 6:27 PM CDT Expected values Deficiency: <20 ng/mL Insufficiency: 20-29 ng/mL Optimum: 30-80 ng/mL Possible toxicity: >80 ng/mL Geri Chavez Dago VERGARA-Goldie LAB_1 Performing Organization Address [facility] de Phone Number [facility] [address] * Vitamin B12 Only (10/23/2022 11:20 AM CDT) Pathologist [facility] Vitamin B12 294 213 - 816 pg/mL 10/23/2022 6:50 PM CDT [facility] Blood Venipuncture / Unknown 10/23/2022 11:20 AM CDT 10/23/2022 11:39 AM CDT Geri Chavez Dago VERGARA-Goldie LAB_1 Performing Organization Address [facility] Co de Phone Number [facility] [address] [place] [address] * (ABNORMAL) TSH (10/23/2022 11:20 AM CDT) TSH, Sensitive 47.82(H) 0.30 - 4.50 uIU/mL 10/23/2022 6:50 PM CDT [facility] Blood Venipuncture / Unknown 10/23/2022 11:20 AM CDT 10/23/2022 11:39 AM CDT Mikayla Sweeney MD LAB_1 Performing Organization Address [facility] Co de Phone Number [facility] [address] [place], [place] [address] * (ABNORMAL) HgbA1c - Collect in Lab (10/23/2022 11:20 AM CDT) Hemoglobin A1C (Rapid) 7.0(H) <=5.6 % 10/23/2022 12:19 PM CDT [facility] Estimated Average Glucose (Calc) 154 < 117 mg/dL 10/23/2022 12:19 PM CDT [facility] Comment:Estimated average gl ucose (eAG) converts A1c into glucose units (mg/dL) and estimates average glucose over the past approximately 3 months. The eAG reference interval (<117 mg/dL) corresponds to an A1c of <5.7%. Blood Venipuncture / Unknown 10/23/2022 11:20 AM CDT 10/23/2022 11:39 AM CDT Narrative [facility] - 10/23/2022 12:19 PM CDT For [...] for further direction. Mikayla Sweeney MD LAB_1 Performing Organization Address [facility]/ZIP Co de Phone Number [facility] [address] [place] [address], [facility] [phone] * (ABNORMAL) Lipid Panel and Direct LDL(If Needed) (10/23/2022 11:20 AM CDT) Cholesterol 322(H) 0 - 199 mg/dL 10/23/2022 1:00 PM T [facility] Triglyceride 205(H) <=149 mg/dL 10/23/2022 1:00 PM CDT [facility] HDL Cholesterol 46 >=40 mg/dL 3 1:00 PM T [facility] LDL, Calculated 235(H) <130 mg/dL 3 1:00 PM [facility] Non HDL Chol, Calculated 276(H) <=159 mg/dL 10/23/2022 1:00 PM [facility] Cholesterol/HDL Ratio 7.0 10/23/2022 1:00 PM [facility] Hours Fasting 0 10/23/2022 1:00 PM [facility] Blood Venipuncture / Unknown 10/23/2022 11:20 AM CDT 10/23/2022 11:39 AM T Mikayla Sweeney MD LAB_1 [facility] [address] [place] [address], [facility] [phone] documented in this encounter Visit Diagnoses Diagnosis Mixed hyperlipidemia (HRC) Mixed hyperlipidemia Type 2 diabetes mellitus without complication, without long-term current use of insulin (HRC) Hypothyroidism, unspecified type (HRC) Class 3 severe obesity due to excess calories with body mass index (BMI) of 45.0 to 49.9 in adult, unspecified whether serious comorbidity present (HRC) documented in this encounter Care Teams Turntable Operator Relationship Specialty Start Date End Date Kaykay Duarte APRN, LEAH [address] [place] [address] PCP - General Nurse Practitioner 10/25/21 documented as of this encounter
--- OUTSIDE RECORDS SUMMARY | 2023-05-09 18:29 | XMS_ITS | Encounter Summary ---
Author Name Unknown Organization [facility] Address [address], [place] [address] Care Team Providers Care Manager Inpatient Name Role Phone Kaykay Duarte APRN, LEAH Primary Care Provid er Reason for Visit * Reason Comments Refill levothyroxine (SYNTH ROID) 200 MCG tablet [Pharmacy Med Name: Levothyroxine Sodium Oral Tablet 200 MCG] Encounter Details Date Type Department Care Team (Late st Contact Info) Description 10/21/2022 Refill [facility] [address] [facility] [place], [place] [id number] Mikayla Sweeney MD [address] [place], [place] [id number] Refill (levothyroxine (SYNTHROID) 200 MCG tablet [Pharmacy Med Name: Levothyroxine Sodium Oral Tablet 200 MCG]) Social History Tobacco Use Types Packs/Day Years [...] as of this encounter Nursing Notes * Ralf Cabello RN - 10/24/2022 1:06 AM CDT Further Assistance Needed on Refill from Clinician RN reviewed. Please advise on refill to bridge until appointment. -> TSH is abnormal (18.64 mIU/L lies outside 0.2 mIU/L - 4.5 mIU/L) TSH: 18.64 mIU/L on 08/20/2022 Future Appointments Provider Department Center 10/30/2022 11:20 AM Kaykay Duarte APRN, MINE ADMINISTRATOR SUPERVISOR [facility] Medicine PN [place] 11/20/2022 7:20 AM Nahomy Latham [facility] [address] 12/25/2022 1:30 PM Mikayla Sweeney MD [facility] [address] PN [id number] Review pended order for accuracy and sign if appropriate and Route to care team if needed. Requested Prescriptions Pending Prescriptions Disp Refills levothyroxine (SYNTHROID) 200 MCG tablet [Pharmacy Med Name: Levothyroxine Sodium Oral Tablet 200 MCG] 60 Tablet 0 Sig: TAKE 1 TABLET BY MOUTH ONE TIME DAILY * Interface, Out Surescripts Prov Query - 10/21/2022 2:19 PM CDT levothyroxine (SYNTHROID) 200 MCG tablet [Pharmacy Med Name: Levothyroxine Sodium Oral Tablet 200 MCG] Medication started: 08/25/2017 Last ordered by MIKAYLA SWEENEY: 08/12/2022 (70 days ago) QTY: 30, Refills: 0, Sig: take 1 tablet (200 mcg) by mouth daily. (changed but equivalent) -> The requested strength (0.2 mg oral tablet) was last ordered on 08/12/2022. The patient is taking 0.025 mg oral tablet as of 08/21/2022. -> The medication is active at more than one strength (0.2 mg on 08/12/2022, 0.025 mg on 08/21/2022). -> A qualifying visit was not found within the last 2 years. -> TSH is abnormal (18.64 mIU/L lies outside 0.2 mIU/L - 4.5 mIU/L) Last qualifying visit: None (A recent visit (in Family Practice with JANESSA TORRES) was found) Next scheduled visit: None TSH: 18.64 mIU/L on 08/20/2022 [facility] Embedded Refills, Reference: [id number], 10/21/2022 2:19:52 PM CDT, Pool: DEBRA FP REFILL ([id number]) * Interface, Out Ash Access Technology Prov Query - 10/21/2022 2:19 PM CDT The following lab order(s) may be associated with the Result Note below: IRON PROFILE (IRON,TIBC,%SAT.(CALC)) Notes recorded by Janessa Torres on 08/21/2022 at 8:57 AM CDT Hi Billie, Iron and ferritin levels are normal. Feel free to contact the clinic with any questions! ( , or send a message via Meilele) Janessa Boyle PA-C 08/21/2022, 8:57 AM [facility] * Interface, Out Surescripts Prov Query - 10/21/2022 2:19 PM CDT The following lab order(s) may be associated with the following Patient Result Comment (Entered by Janessa Torres PA-C at 08/21/2022 8:57 AM): IRON PROFILE (IRON,TIBC,%SAT.(CALC)) Hi Billie,Iron and ferritin levels are normal. Feel free to contact the clinic with any questions!( , or send a message via Meilele)Janessa Boyle PA-C 08/21/2022, 8:57 AM [facility] documented in this encounter Plan of Treatment Not on file documented as of this encounter Visit Diagnoses Not on filedocumented in this encounter Care Teams Manager Inpatient Relationship Specialty Start Date End Date Kaykay Duarte APRN, MINE ADMINISTRATOR SUPERVISOR [address] [place] [address] PCP - General Nurse Practitioner 10/25/21 documented as of this encounter
--- OUTSIDE RECORDS SUMMARY | 2023-05-09 18:29 | XMS_ITS | Encounter Summary ---
Author Name Unknown Organization [facility] Address [address], [place] [address] Care Team Providers Care Field Application Engineer Name Role Phone Kaykay Duarte APRN, LEAH Primary Care Provid er Reason for Visit * Reason Comments Lab Draw Encounter Details Date Type Department Care Team (Late st Contact Info) Description 08/20/2022 Telephone [facility] [address] Endocr[address]ology [address] [facility] [place], [place] [id number] Mikayla Sweeney MD [address] [place] [address] Lab Draw Social History Tobacco Use Types Packs/Day Years [...] as of this encounter Nursing Notes * Federica Marinelli RN - 08/20/2022 9:24 AM CDT Pt called asking that we add an A1C to her current lab specimen. Order signed. documented in this encounter Plan of Treatment Not on file documented as of this encounter Results * (ABNORMAL) HgbA1c - Collect in Lab (08/20/2022 8:40 AM CDT) Hemoglobin A1C (Rapid) 7.2(H) <=5.6 % 08/20/2022 11:54 AM CDT [facility] Estimated Average Glucose (Calc) 160 < 117 mg/dL 08/20/2022 11:54 AM CDT [facility] Comment:Estimated average gl ucose (eAG) converts A1c into glucose units (mg/dL) and estimates average glucose over the past approximately 3 months. The eAG reference interval (<117 mg/dL) corresponds to an A1c of <5.7%. Blood Venipuncture / Unknown 08/20/2022 8:40 AM CDT 08/20/2022 9:13 AM CDT Narrative [facility] - 08/20/2022 11:54 AM CDT For patients not previously diagnosed with [...] for further direction. Mikayla Sweeney MD LAB_1 [facility] [address] [place] [address], [facility] [place] [phone] documented in this encounter Visit Diagnoses Diagnosis Type 2 diabetes mellitus without complication, without long-term current use of insulin (HRC)- Primary documented in this encounter Care Teams Field Application Engineer Relationship Specialty Start Date End Date Kaykay Duarte, FAMILY WORKER, QUICK PRINT OPERATOR [address] [place] [address] PCP - General Nurse Practitioner 10/25/21 documented as of this encounter
--- OUTSIDE RECORDS SUMMARY | 2023-05-09 18:29 | XMS_ITS | Encounter Summary ---
Author Name Unknown Organization [facility] Address [address], [place] [address] Care Team Providers Care Business Services Tech Name Role Phone Kaykay Duarte APRN, LEAH Primary Care Provid er Reason for Referral * Consult/Transfer Care (Routine) - New Request Specialty Diagnoses / Procedures Referred By Osmar gallego Referred To Contact Diagnoses Uncontrolled restless legs syndrome Janessa Sawant PA-C [address] [facility] [address] [place] [address] Referral ID Status Reason Start Date Expiration Date V isits Requested Visits Authorized [id number] New Request 06/03/2022 09/02/2023 1 1 Scheduling Instructions Your clinician has recommended an appointment with [facility]. This is not a sleep study order and must first be reviewed by a sleep specialist to determine the next steps. The review process looks at multiple factors including your insurance requirements, personal health history, and [place] [employer] guidelines. This order will be reviewed within 1 business day and sent to scheduling for one of the following appointments: - Consultation/Office Visit with a Sleep Medicine Specialist - Consultation/Office Visit with an Insomnia Specialist - Portable/Home Sleep Test If you do not hear from our scheduling staff within the next 7 days, please contact us at [phone] and select option 1. Question Answer Appointment Urgency Non-Urgent Sleep Service Requested Sleep Consult Previously Diagnosed MARVA Yes Other sleep complaints Restless Legs Reason for visit refractory RLS Comments Comments: Age/Sex: 51 y.o. / female Height: 02/20/22 : 5' 6 (1.676 m) Weight: 03/04/22 : (!) 308 lb (139.7 kg) BMI: Estimated body mass index is 49.71 kg/m?? as calculated from the following: Height as of 02/20/22: 5' 6 (1.676 m). Weight as of 03/04/22: 308 lb (139.7 kg). Reason for Visit * Reason Comments Video Visit MEDICATION CHECK Encounter Details Date Type Department Care Team (Late st Contact Info) Description 06/03/2022 6:30 PM CDT Telemedicine [facility] [address] [employer] [address] [facility] [place] [address] Janessa Sawant PA-C [address] [facility] [address] [place] [address] Uncontrolled restless legs syndrome (Primary Dx); Hypothyroidism, unspecified type Social History Tobacco Use Types Packs/Day [...] as of this encounter Progress Notes * Janessa Sawant PA-C - 06/03/2022 6:30 PM CDT CC: Chief Complaint Patient presents with Video Visit MEDICATION CHECK HPI: Billie Connolly is a 51 y.o. female who has a video visit today to discuss concerns with worsening restless leg syndrome. She was diagnosed with this years ago. She is been taking Requip 4 mg daily for quite some time. Last year her PCP added gabapentin 600 mg at bedtime to her regimen. Unfortunately her symptoms have continued to gradually worsen, particularly in the last 2-3 months. She is experiencing breakthrough symptoms earlier in the day. She will take Requip 2 mg symptoms as early as 10:00 a.m. and then symptoms recur. She denies symptoms affecting her upper extremities. She describes worsening intensity of symptoms to the point that it affects her mood and makes her irritable. She reports she is overall a poor sleeper. She has known MARVA and has a CPAP. She falls asleep easilybut does not stay asleep. I performed this visit using real-time telehealth tools/live [place] connection. No Known Allergies Exam: Patient reported: There were no vitals taken for this visit. General: alert, well appearing, no acute distress Chest/Pulmonary: no tachypnea and breathing easily, speaking in complete sentences Psychiatric: affect/mood normal, cooperative, normal judgement/insight, and memory intact Assessment/Plan: 1. Uncontrolled restless legs syndrome - gabapentin (NEURONTIN) 100 MG capsule; Take 1-3 Capsules (100-300 mg) by mouth daily as needed (Restless legs). Take earlier in the day if needed for restless legs. Continue prescription for 600 mgat bedtime. Dispense: 90 Capsule; Refill: 1 - Sleep Services - Iron Profile (Iron,TIBC,%Sat.(Calc)); Future - Ferritin; Future 2. Hypothyroidism, unspecified type (HRC) - TSH; Future Uncontrolled/refractory RLS syndrome despite maximum dose of requip and adjunct of gabapentin. She is due for a TSH check and has also been six months since her last iron/ferritin check. I recommended we evaluate these. Given her rather severe symptoms I recommended she meet with Sleep Services to discuss symptom management further. She can also reach out to her PCP to get another opinion. I do not feel comfortable adding a medication such as a benzodiazepine or changing gabapentin to Lyrica atthis time. Medication management for refractory RLS, such as low dose opioids deferred to specialist. In the interim, can try adding a low dose of gabapentin earlier in the day, 100-300 mg, to see ifthis provides any relief. Seek care with any new or worsening symptoms. Patient verbalizes understanding and agrees to plan. Janessa Sawant PA-C 06/03/2022, 7:08 PM documented in this encounter Plan of Treatment Scheduled Referrals Name Type Priority Associated Diagnoses Orde r Schedule Sleep Services Referral Routine Uncontrolled restless legs syndrome Ordered: 06/03/2022 documented as of this encounter Results * Ferritin (08/20/2022 8:36 AM CDT) Ferritin 85 9 - 204 ng/mL 08/20/2022 3:24 PM CDT [facility] Blood Venipuncture / Unknown 08/20/2022 8:36 AM CDT 08/20/2022 9:13 AM CDT Janessa BALDERASC LAB_1 Performing Organization Address [facility] Phone Number [facility] [employer] [address] * Iron Profile (Iron,TIBC,%Sat.(Calc)) (08/20/2022 8:36 AM CDT) Iron 68 50 - 170 mcg/dL 08/20/2022 3:09 PM CDT [facility] Transferrin 265 180 - 382 mg/dL 08/20/2022 3:09 PM CDT [facility] TIBC, Calculated 331 240 - 450 mcg/dL 08/20/2022 3:09 PM CDT [facility] % Saturation, Calculated 21 10 - 50 % 08/20/2022 3:09 PM CDT [facility] Blood Venipuncture / Unknown 08/20/2022 8:36 AM CDT 08/20/2022 9:13 AM CDT Janessa VERGARA-C LAB_1 Performing Organization Address [facility] Phone Number [facility] [employer] [address] * (ABNORMAL) TSH (08/20/2022 8:36 AM CDT) TSH, Sensitive 18.64(H) 0.30 - 4.50 uIU/mL 08/20/2022 3:25 PM CDT [facility] Blood Venipuncture / Unknown 08/20/2022 8:36 AM CDT 08/20/2022 9:13 AM CDT Janessa Sawant PA-C LAB_1 [facility] [address] documented in this encounter Visit Diagnoses Diagnosis Uncontrolled restless legs syndrome- Primary Hypothyroidism, unspecified type (HRC) documented in this encounter Care Teams Business Services Tech Relationship Specialty Start Date End Date Kaykay Duarte APRN, COMMERCIAL CREDIT SPECIALIST [address] [place] [address] PCP - General Nurse Practitioner 10/25/21 documented as of this encounter
--- OUTSIDE RECORDS SUMMARY | 2023-05-09 18:29 | XMS_ITS | Encounter Summary ---
Author Name Unknown Organization [facility] Address [address], [place] [address] Care Team Providers Care Water [employer]er Systems Supervisor Name Role Phone Kaykay Duarte APRN, LEAH Primary Care Provid er Encounter Details Date Type Department Care Team (Late st Contact Info) Description 08/20/2022 8:40 AM CDT Lab Visit [facility] [address] [place] [address] Type 2 diabetes mellitus without complication, without long-term current use of insulin (HRC); Hypothyroidism, unspecified type (HRC); Uncontrolled restless legs syndrome; Type 2 diabetes mellitus without complication, without long-term current use of insulin (HRC) Social History Tobacco Use Types Packs/Day [...] Procedure Name Priority Date/Time Associated Diagnosis Comments EXTRA LAVENDER TOP TUBE Routine 08/20/2022 8:40 AM CDT Type 2 diabetes mellitus without complication, without long-term current use of insulin (HRC) Hypothyroidism, unspecified type (HRC) Uncontrolled restless legs syndrome HGB A1C Routine 08/20/2022 8:40 AM CDT Type 2 diabetes mellitus without complication, without long-term current use of insulin (HRC) TSH, SENSITIVE Routine 08/20/2022 8:36 AM CDT Hypothyroidism, unspecified type (HRC) ALBUMIN/CREAT RATIO Routine 08/20/2022 8 :36 AM CDT Type 2 diabetes mellitus without complication, without long-term current use of insulin (HRC) FERRITIN Routine 08/20/2022 8:36 AM CDT Uncontrolled restless legs syndrome IRON PROFILE (IRON,TIBC,%SAT.(CA LC)) Routine 08/20/2022 8:36 AM CDT Uncontrolled restless legs syndrome documented in this encounter Results * (ABNORMAL) HgbA1c - Collect in Lab (08/20/2022 8:40 AM CDT) Hemoglobin A1C (Rapid) 7.2(H) <=5.6 % 08/20/2022 11:54 AM [facility] Estimated Average Glucose (Calc) 160 < 117 mg/dL 08/20/2022 11:54 AM [facility] Comment:Estimated average gl ucose (eAG) converts A1c into glucose units (mg/dL) and estimates average glucose over the past approximately 3 months. The eAG reference interval (<117 mg/dL) corresponds to an A1c of <5.7%. Blood Venipuncture / Unknown 08/20/2022 8:40 AM CDT 08/20/2022 9:13 AM CDT [facility] - 08/20/2022 11:54 AM CDT For [...] Mikayla Sweeney MD LAB_1 Performing Organization Address [facility] Co de Phone Number [facility] [address] [place] [address], [facility] [phone] * Extra Lavender top tube (08/20/2022 8:40 AM CDT) Pathologist [facility] Extra Lavender Top Drawn Specimen will be held for 3 days 08/20/2022 11:00 AM CDT [facility] Blood Venipuncture / Unknown 08/20/2022 8:40 AM CDT 08/20/2022 9:13 AM CDT Mikayla Sweeney MD LAB_1 Performing Organization Address [facility] de Phone Number [facility] [address] [place] [address], [facility] [phone] * Ferritin (08/20/2022 8:36 AM CDT) Pathologist [facility] Ferritin 85 9 - 204 ng/mL 08/20/2022 3:24 PM CDT [facility] Blood Venipuncture / Unknown 08/20/2022 8:36 AM CDT 08/20/2022 9:13 AM CDT Janessa Sawant PA-C LAB_1 Performing Organization Address [facility] Co de Phone Number [facility] [address] [place], [place] [phone] [place] [address] * Iron Profile (Iron,TIBC,%Sat.(Calc)) (08/20/2022 8:36 AM CDT) Pathologist [facility] Iron 68 50 - 170 mcg/dL 08/20/2022 3:09 PM CDT [facility] Transferrin 265 180 - 382 mg/dL 08/20/2022 3:09 PM CDT [facility] TIBC, Calculated 331 240 - 450 mcg/dL 08/20/2022 3:09 PM CDT [facility] % Saturation, Calculated 21 10 - 50 % 08/20/2022 3:09 PM CDT [facility] Blood Venipuncture / Unknown 08/20/2022 8:36 AM CDT 08/20/2022 9:13 AM CDT Janessa A Jese PA-C LAB_1 Performing Organization Address [facility] Co de Phone Number [facility] [address] [place] [address] * (ABNORMAL) TSH (08/20/2022 8:36 AM CDT) Pathologist [facility] TSH, Sensitive 18.64(H) 0.30 - 4.50 uIU/mL 08/20/2022 3:25 PM CDT [facility] Blood Venipuncture / Unknown 08/20/2022 8:36 AM CDT 08/20/2022 9:13 AM CDT Janessa A Kristophert PA-C LAB_1 Performing Organization Address [facility] de Phone Number [facility] [address] [place] [address] * Albumin/Creatinine Ratio,Random Urine (08/20/2022 8:36 AM CDT) [facility] Albumin/Creati nine Ratio, Urine, Random 10 <30 mg/g 08/20/2022 10:58 AM CDT [facility] Albumin, Urine, Random 18.1 mg/L 08/20/2022 10:58 AM CDT [facility] Creatinine, Urine, Random 182 >20 mg/dL mg/dL 08/20/2022 10:58 AM T [facility] Urine Non-blood Collection / Unknown 08/20/2022 8:36 AM CDT 08/20/2022 9:30 AM CDT Mikayla Sweeney MD LAB_1 [facility] [address] [place] [address], [facility] [phone] documented in this encounter Visit Diagnoses Diagnosis Type 2 diabetes mellitus without complication, without long-term current use of insulin (HRC) Hypothyroidism, unspecified type (HRC) Uncontrolled restless legs syndrome documented in this encounter Care Teams [employer] Supervisor Relationship Specialty Start Date End Date Kaykay Duarte, GINA, CLIENT DELIVERY MANAGER [address] [place] [address] PCP - General Nurse Practitioner 10/25/21 documented as of this encounter
--- OUTSIDE RECORDS SUMMARY | 2023-05-09 18:29 | XMS_ITS | Encounter Summary ---
Author Name Unknown Organization [facility] Address [address], [place] [address] Care Team Providers Care Master Fire Control Technician Name Role Phone Kaykay Duarte APRN, CNP Primary Care Provid er Reason for Visit * Reason Comments COVID Encounter Details Date Type Department Care Team (Late st Contact Info) Description 10/31/2022 Telephone [facility] [address] [place] [address] Kaykay Duarte APRN, CNP [address] [place] [address] COVID Social History Tobacco Use Types Packs/Day Years [...] as of this encounter Nursing Notes * Melissa Leong RN - 10/31/2022 3:32 PM CDT Images from the original note were not included. Home/Clinic Test: Home: Patient called to report positive home COVID-19 test. Patient has symptoms. Date of onset of symptoms:10/30/2022 Current symptoms consist of: Cough, Headache, and Fatigue Progression of symptoms: not changed Patient was given and able to verbalize home isolation instructions for patients that have tested positive for COVID. Isolation Information: Immunocompetent Patient Mildly Ill: remain at home / in isolation until at least 5 days have passedsince the onset of your symptoms AND you've not had a fever for 24 hours without fever reducing medicine AND all your symptoms have improved*. After isolation, continue to wear a mask for 5 additional days and avoid being around people who are more likely to get very sick from COVID-19 until at least day 11 If unable to wear a mask, remain in home isolation 10 days from the onset of symptoms *Loss of taste and smell may persist for weeks or months after recovery and need not delay the end of isolation. Per CDC guidelines you are able to discontinue Home Isolation on 11/05/2022. Until that date: With the exception of emergent or urgent medical needs, do not leave your home. Stay connected with your doctor via video visit or reschedule your in-person visit to a video visit (if applicable). Visit [employer] for our latest on masking and when you can return to the clinic for non-emergent appointments. Avoid public areas and transportation. Isolate yourself from other s as much as possible by staying in a specific room away from people and pets in your home, use a separate bathroom if available, wear a cloth face covering if you need to be around others in your home. COVID-19 Tests can remain positive for several weeks after your initial test. If you develop new symptoms, please contact us to speak to a nurse or your clinician. Evaluation of Reinfection: N/A Close Contact Information: Close contacts (those whom were within 6 feet of you for a total of 15 minutes or more within 24 hours prior to your COVID symptom onset) should call their healthcare provider right away if they develop symptoms suggestive of COVID 19. Provide the below information to any close contacts: It is recommended to wear a high-quality mask for 10 days Day 0 is the day of your last exposure to someone with COVID-19, Day 1 is the first full day after your last exposure Test for COVID-19 if symptoms develop or if you don???t develop symptoms, 5 full days after exposure How to protect yourself and others: Wash your hands often, and frequently clean and disinfect surfaces. Cover all coughs and sneezes. Try to avoid touching your face. Wear a mask any time you are around others, including in your home. Separate yourself from others in your home as much as possible by staying in a specific room or rooms, away from people and pets. You should not share dishes, drinking glasses, cups, eating utensils, towels, or bedding with otherpeople in your home. Clean all high touch surfaces in your home daily. It's important for you to watch for any worsening symptoms, especially if you are at a higher risk for getting very sick from COVID-19. Higher risk groups include people older than age 60 and people who have serious chronic medical conditions like heart disease, diabetes or lung disease. Pay attention to the speed of worsening symptoms. If your symptoms are gradually worsening and you're concerned, try a video visit or call your clinic. Normally symptoms worsen a bit before getting better. Seek care at an emergency room if these symptom suddenly or quickly worsen: Sudden worsening shortness of breath, sudden worsening wheezing, difficulty swallowing, slurred speech, facial numbness, new confusion or inability to arouse, persistent pain or pressure in the chest, leg swelling. Guidance for return to work: Before returning to work, you must contact your employer for return to work instructions. Guidance for return to sports for children: If your child had any of the following: a fever >4 days, was lethargic >7 days, had chills ormuscle aches/pains >7 days, OR hospitalized with COVID-19, an in- person visit is required. All other patients may be seen in person or via telemedicine. Patient Resources: Recommended Centers of Disease Control (CDC), [place] Department of Health ([facility]), and [employer] websites for further information on Coronavirus. Advised patient to review COVID-19 handout given to them at time of testing. COVID-19 Therapeutics: Risk Scores Covid Risk Score (Compiled) 10 Patient Age 2 BMI 2 Diabetes 2 Asthma 3 Empty Metrics: CKD, Vascular, Hypertension, Immune Comp Current as of: 10/31/2022 3:30 PM 5 days from symptom onset = 11/04/2022 7 days from symptom onset = 11/06/2022 Is the patient established?Yes Is patient within 5 days of symptom onset? Yes: Has patient received any antivirals to treat COVID-19 within the past 90 days? No: Is patient over the age of 12 years, > 40kg/88lb, with a CRS > 1? (Confirm eligibility requirements within standing order) Yes Is supply of Paxlovid available? Yes: GFR, Estimated (mL/min/1.73m2) Date Value 10/23/2022 >60 02/08/2021 >60 Est GFR Am (mL/min/1.73m2) Date Value 08/01/2016 >60 Est GFR Non-Afr Am (mL/min/1.73m2) Date Value 08/01/2016 >60 Is Paxlovid contraindicated? (Refer to Standing Order) No: Was pharmacy consulted about a precaution? No Was patient counseled of any medication adjustments per the standing order? Yes (Document clinical management instructions) Pt stated is no taking oxycodone or naltrexone-buPROPion. Patient is eligible and agrees to treatment: Paxlovid prescribed per standing order, send to pharmacy and provide Paxlovid Patient Education: Where/How to garbage pick up man medication prescription/Medication delivery How to take medication, importance of taking as prescribed and continue until finished If patient needs to begin taking any new prescribed or [id number] medications or herbal supplements while completing Paxlovid treatment, patient needs to consult with their clinician as Paxlovid has many drug interactions Rarely, symptoms can return within 2 weeks after Paxlovid treatment, and this phenomenon is described as COVID-19 rebound. If your symptoms resolve and quickly return, please call your clinic to discuss probable isolation instructions. If patient is using a combined hormonal contraceptive, advise patient to use an additional barrier method of contraception as Paxlovid may reduce the effectiveness of hormonal contraceptive Side effects may include loss in taste and/or smell, diarrhea, and muscle aches and pains When to contact your healthcare provider: If you have worsening symptoms of COVID-19, new symptoms such as increased blood pressure and/or difficulty completing treatment as prescribed Does patient have any questions? No Does patient need documentation as verification of their results? Yes If [employer] Active: inform patient they can log in to view results and print verification. If [employer] Inactive: inform patient a letter will be mailed to them.* *automatic process, please verify address and update if appropriate The following advice may help if you have a fever, sore throat, cough, or sinus infection/pain. Please note that because COVID-19 is a viral infection, an antibiotic won???t soothe or treat the virus. Getting plenty of rest and drinking water to stay hydrated is mar to feeling better. 10/31/2022, 3:35 PM * [place] - 10/31/2022 3:19 PM CDT Medications - New Medication What medication are you calling about (name or what do/did you take it for)? Pt was see at and would like to get the paxlovid Why are you calling for this medication? They tested positive for Covid Have you taken this medication or type of medication before and if so, when was it last taken? No Additional comments (related to the above concern): They are insist on talking to someone before end of day For this new medication, patient would like it filled at the pharmacy listed in Medication Management. Is it okay to leave a detailed message on your voicemail? Yes Is there anything else I can help you with today? documented in this encounter Plan of Treatment Not on file documented as of this encounter Visit Diagnoses Diagnosis COVID- Primary documented in this encounter Care Teams Master Fire Control Technician Relationship Specialty Start Date End Date Kaykay Duarte, VAN HELPER, PROCESS MAINTENANCE TECHNICIAN [id number] [place] [address] PCP - General Nurse Practitioner 10/25/21 documented as of this encounter
--- OUTSIDE RECORDS SUMMARY | 2023-05-09 18:29 | XMS_ITS | Encounter Summary ---
Author Name Unknown Organization [facility] Address [address] [address] Care Team Providers Care Head Sulfide Operator Name Role Phone Kaykay Duarte APRN, LEAH Primary Care Provid er Reason for Visit * Reason Comments Follow-up, NOS Encounter Details Date Type Department Care Team (Late st Contact Info) Description 06/20/2022 1:00 PM CDT Office Visit [facility] - Urology [address] [place], [place] [id number] Zoila Shaikh MBBS [address] [place], [place] [id number] Urge incontinence (Primary Dx) Social History Tobacco Use Types [...] as of this encounter Progress Notes * Zoila Shaikh MBBS - 06/20/2022 12:00 AM CDT NAME: JIMBO CONNOLLY CSN: [id number] CLINIC NOTE DATE OF SERVICE: 06/20/2022 : 1970 REASON FOR VISIT: Followup after urodynamics. CLINICAL DATA: Jimbo follows up today after urodynamic evaluation. She had a couple of episodes ofcomplete urinary incontinence, mainly at night when she got up to go to the bathroom. Because of this, I recommended urodynamic evaluation. She did have a retropubic sling done in January of 2021. The urodynamics is actually completely normal. She has no evidence of bladder instability, good bladder, and good capacity. I had a discussion with Jimbo. I think at this point everything looks good on the urodynamics, which is good. She has no stress incontinence either. I talked to her about the options, would be just to wait and see if this continues to be a pattern or consider anticholinergics or even possibly some vaginal estrogen cream. She is menopausal/perimenopausal, so it is possible that this might be a hormone-related thing. I think at this point the best option we consider some low-dose vaginal estrogen cream. I gave her a prescription for this. We will try this for about 3 months. I will see her back in 3 months, and we will see how things are going. If she still continues to have issues despite this, then we will probably consider some medications to help with urgency. Also, we can help with sexual activity as well as she is noticing some disco mfort with intercourse as well. Jimbo and I had a good discussion. The prescription was sent to her pharmacy, and I will see her back in 3 months. AUDELIA VALDEZ/KIRSTY /[id number] documented in this encounter Plan of Treatment Not on file documented as of this encounter Visit Diagnoses Diagnosis Urge incontinence- Primary documented in this encounter Care Teams Head Sulfide Operator Relationship Specialty Start Date End Date Kaykay Duarte, MUSEUM SERVICE SCHEDULER, ANIMAL WARDEN [address] [place] [address] PCP - General Nurse Practitioner 10/25/21 documented as of this encounter
--- OUTSIDE RECORDS SUMMARY | 2023-05-09 18:29 | XMS_ITS | Encounter Summary ---
Author Name Unknown Organization [facility] Address [address] [address] Care Team Providers Care Car Spotter Name Role Phone Kaykay Duarte APRN, LEAH Primary Care Provid er Reason for Referral * (Routine) - Closed Specialty Diagnoses / Procedures Referred By Osmar gallego Referred To Contact Diagnoses Annual physical exam Procedures Endoscopy, colon, diagnostic Elizabeth [place]don APRN[place] CNM [address] [address] [place] [phone] Referral ID Status Reason Start Date Expiration Date Visits Re quested Visits Authorized [id number] Closed 12/17/2020 03/18/2022 1 1 Reason for Visit * (Routine) - Closed Specialty Diagnoses / Procedures Referred By Osmar gallego Referred To Contact Diagnoses Annual physical exam Procedures Endoscopy, colon, diagnostic Elizabeth Hernodn APRN, CNM [address] [address] [place] [address] Referral ID Status Reason Start Date Expiration Date Visits Re quested Visits Authorized [id number] Closed 12/17/2020 03/18/2022 1 1 Encounter Details Date Type Department Care Team ([facility] st Contact Info) Description 11/20/2022 6:52 AM CDT - 11/20/2022 11:59 PM CDT Hospital [facility] [address] [place] [address] Nahomy Latham MD [address] [place] [address] Annual physical exam Discharge Disposition: Home Social History Tobacco Use Types Packs/Day Years [...] Reading Time Taken Comments Blood Pressure 110/68 11/20/2022 8:15 AM CDT Pulse 73 11/20/2022 8:15 AM CDT Temperature - - Respiratory Rate 16 11/20/2022 8:15 AM CDT Oxygen Saturation 97% 11/20/2022 8:15 AM CDT Inhaled Oxygen Concentration - - Weight - - Height - - Body Mass Index - - documented in this encounter Medications at Time of Discharge Medication Sig Dispensed Refills Start Date End Date albuterol 2.5 mg/3 mL, 0.083%, (PROVENTIL) nebulizer solutionIndications:M ild intermittent asthma without complication (HRC) Inhale 1 Vial every 4 hours as needed for Wheezing, Shortness of Breath or Other (cough). Inhale 1 vial (3 ml) in nebulizer every 6 hours as needed 180 mL 1 09/17/2020 blood glucose (ACCU-CHEK GUIDE) test stripIndications:Type 2 diabetes mellitus without complication, without long-term current use of insulin (HRC) Use 1 Each to test three times a day. 100 Strip 11 04/10/2022 Blood Glucose Monitoring Suppl (ACCU-CHEK GUIDE) w/Device KITIndications:Type 2 diabetes mellitus without complication, without long-term current use of insulin (HRC) Use as directed. 1 Kit 04/10/2022 cyanocobalamin (JACNPIQM12) 1000 MCG/ML injection Inject 1,000 mcg subcutaneously every 30 days. 08/15/2022 insulin pen needle 31G X 8 MM SHORT Inject 1 Each subcutaneously daily. with pen injector device. Each needle is for one time use only 100 Each 11 02/08/2021 lancets (ACCU-CHEK SOFTCLIX)Indications: Type 2 diabetes mellitus without complication, without long-term current use of insulin (HRC) Use 1 Each to test three times a day. 300 Each 3 04/16/2022 levonorgestrel (MIRENA) 20 MCG/24HR IUD 1 Each by Intrauterine route once. levothyroxine (SYNTHROID) 200 MCG tablet 1 tab PO daily with 25 mcg tab for total 225 mcg daily 90 Tablet 3 10/24/2022 mometasone-formoterol (DULERA) 200-5 mcg/actuation inhaler Inhale 1 Puff two times a day. Rinse mouth/gargle after use. 1 Each 3 02/20/2022 omeprazole (PRILOSEC) 40 MG capsule Take 1 Capsule (40 mg) by mouth two times a day. 10/23/2022 VENTOLIN HFA 108 (90 Base) MCG/ACT inhalerIndications:Mi ld intermittent asthma without complication (HRC) Inhale 2 Puffs every 6 hours as needed for Wheezing. 3 Each 3 02/14/2022 celecoxib (CELEBREX) 200 MG capsuleIndications:Hi p pain,Primary osteoarthritis of right hip,Trochanteric bursitis of left hip Take 1 Capsule (200 mg) by mouth two times daily as needed for Pain. 60 Capsule 03/04/2022 11/27/2022 estradiol (ESTRACE) 0.1 MG/GM vaginal cream Place a pea size amount on your finger and place in vagina daily 42.5 g 3 06/20/2022 11/27/2022 gabapentin (NEURONTIN) 100 MG capsuleIndications:Un controlled restless legs syndrome Take 1-3 Capsules (100-300 mg) by mouth daily as needed (Restless legs). Take earlier in the day if needed for restless legs. Continue prescription for 600 mg at bedtime. 90 Capsule 1 06/03/2022 11/27/2022 gabapentin (NEURONTIN) 600 MG tabletIndications:Res tless legs syndrome TAKE ONE TABLET BY MOUTH EVERY NIGHT AT BEDTIME 90 Tablet 5 04/11/2022 11/27/2022 levothyroxine (SYNTHROID) 50 MCG tablet Take 1 Tablet (50 mcg) by mouth daily. Take with 200 mcg for total 250 mcg daily 90 Tablet 3 10/28/2022 02/10/2023 naltrexone-buPROPion ER 8-90 MG TB12 One daily x 1 wk; 1 tab twice daily x 1 wk, 2 tabs in the am,1 tab in the pm x1 wk; then 2 tabs twice daily thereafter. 120 Tablet 3 08/21/2022 11/27/2022 omeprazole (PRILOSEC) 20 MG capsule Take 1 Capsule (20 mg) by mouth. 08/15/2022 11/27/2022 oxyCODONE-acetaminoph en (PERCOCET) 5-325 MG tablet Take 1 Tablet by mouth 4 times daily as needed for Pain. 10 Tablet 09/11/2022 11/27/2022 rOPINIRole (REQUIP) 2 MG tabletIndications:Unc ontrolled restless legs syndrome Take 2 Tablets (4 mg) by mouth daily at bedtime. 180 Tablet 10/03/2022 11/27/2022 tirzepatide (MOUNJARO) 15 MG/0.5ML injection pen Inject 15 mg subcutaneously once a week. 2 mL 3 08/21/2022 02/10/2023 tiZANidine (ZANAFLEX) 4 MG tabletIndications:Hip pain,Primary osteoarthritis of right hip,Trochanteric bursitis of left hip Take 1 Tablet (4 mg) by mouth every 8 hours as needed. 30 Tablet 1 03/04/2022 11/27/2022 documented as of this encounter Procedure Notes * Nahomy Latham MD - 11/20/2022 7:03 AM CDT Patient Name: Billie Connolly Procedure Date: 11/20/2022 7:03 AM Date of : 1970 Admit Type: Outpatient Age: 52 Gender: Female Note Status: Finalized Attending MD: Nahomy Latham , Procedure: Colonoscopy Indications: Screening for colorectal malignant neoplasm Providers: Nahomy Latham, Eulalia Chávez , RN Referring MD: Medicines: Fentanyl 200 micrograms IV, Midazolam 4 mg IV Complications: No immediate complications. Procedure: After I obtained informed consent, the scope was passed under direct vision. Throughout the procedure, the patient's blood pressure, pulse, and oxygen saturations were monitored continuously. The [id number] was introduced through the anus and advanced [...] from the initial medication administration until the documentation designer assists with initial maneuvers (biopsy / polypectomy / etc.), or if no maneuvers are performed, until the endoscopist leaves the room. Impression: - The examined portion of the ileum was normal. - The entire examined colon is normal. - Hemorrhoids. - No specimens collected. Recommendation: - Repeat colonoscopy in 10 years for screening purposes. Procedure Code(s): --- Professional --- 65738, Colonoscopy, flexible; diagnostic, including collection of specimen(s) by brushing or washing, when performed (separate procedure) 29348, Moderate sedation; each additional 15 minutes intraservice time G0500, Moderate sedation services provided by the same physician or other qualified health home health care case manager performing a gastrointestinal endoscopic service that sedation supports, requiring the presence of an independent trained observer to assist in the monitoring of the patient's level of consciousness and physiological status; initial 15 minutes of intra-service time; patient age 5 years or older (additional time may be reported with 92994, as appropriate) Diagnosis Code(s): --- Professional --- Z12.11, Encounter for screening for malignant neoplasm of colon K64.9, Unspecified hemorrhoids CPT copyright 2020 [employer]. All rights reserved. The codes documented in this report are preliminary and upon powder coater review may be revised to meet current compliance requirements. Nahomy Latham, 11/20/2022 8:02:54 AM This document has been electronically signed. Number of Addenda: 0 Note Initiated On: 11/20/2022 7:03 AM Endoscopy Report documented in this encounter Plan of Treatment Not on file documented as of this encounter Procedures Procedure Name Priority Date/Time Associated Diagnosis Comments ENDOSCOPY, COLON, SCREENING/DIAGNOSTI C Routine 11/20/2022 7:03 AM CDT Annual physical exam documented in this encounter Results * Endoscopy, colon, diagnostic (11/20/2022 7:03 AM [...] saturations were ? monitored continuously. The ? [id number] was introduced through ? the anus and [...] the initial medication ? administration until the documentation designer assists with ? initial maneuvers (biopsy / [...] Procedure Code(s): ? --- Professional --- ? 19212, Colonoscopy, flexible; ? diagnostic, including collection of ? specimen(s) by brushing or washing, ? when performed (separate procedure) ? 06839, Moderate sedation; each ? additional 15 minutes [...] (additional time may ? be reported with 37167, as ? appropriate) Diagnosis Code(s): ? --- Professional --- ? Z12.11, Encounter for screening for ? malignant neoplasm of colon ? K64.9, Unspecified hemorrhoids CPT copyright 2020 [employer]. All rights reserved. The codes documented in this report are preliminary and upon powder coater review may be revised to meet current compliance requirements. Nahomy Latham 11/20/2022 8:02:54 AM This document has been [...] Indications: Screening for colorectal malignant neoplasm Providers: Eulalia Reeder RN Referring MD: Medicines: Fentanyl 200 micrograms IV, Midazolam 4 mg IV Complications: No immediate complications. Procedure: After I obtained informed consent, the scope was passed under direct vision. Throughout the procedure, the patient's blood pressure, pulse, and oxygen saturations were monitored continuously. The [id number] was introduced through the anus and advanced [...] from the initial medication administration until the documentation designer assists with initial maneuvers (biopsy / polypectomy / etc.), or if no maneuvers are performed, until the endoscopist leaves the room. Impression: - The examined portion of the ileum was normal. - The entire examined colon is normal. - Hemorrhoids. - No specimens collected. Recommendation: - Repeat colonoscopy in 10 years for screening purposes. Procedure Code(s): --- Professional --- 28815, Colonoscopy, flexible; diagnostic, including collection of specimen(s) by brushing or washing, when performed (separate procedure) 62066, Moderate sedation; each additional 15 minutes intraservice time G0500, Moderate sedation services provided by the same physician or other qualified health home health care case manager performing a gastrointestinal endoscopic service that sedation supports, requiring the presence of an independent trained observer to assist in the monitoring of the patient's level of consciousness and physiological status; initial 15 minutes of intra-service time; patient age 5 years or older (additional time may be reported with 69847, as appropriate) Diagnosis Code(s): --- Professional --- Z12.11, Encounter for screening for malignant neoplasm of colon K64.9, Unspecified hemorrhoids CPT copyright 2020 [employer]. All rights reserved. The codes documented in this report are preliminary and upon powder coater review may be revised to meet current compliance requirements. Nahomy Latham, 11/20/2022 8:02:54 AM This document has been electronically signed. Number of Addenda: 0 Note Initiated On: 11/20/2022 7:03 AM Endoscopy Report Elizabeth Herndon APRN, CNM PN GI PROCEDUR E ORDERABLES PN PROVATION documented in this encounter Visit Diagnoses Diagnosis Annual physical exam Routine general medical examination at a health care facility documented in this encounter Administered Medications Inactive Administered Medications - up to 3 most recent administrations Medication Order MAR Action Action Date Dose Rate Site fentaNYL (SUBLIMAZE) injection 25-100 mcg 25-100 mcg, Intravenous, PRN, Other, Moderate Sedation, Starting on Thu11/18/22 at 1328, Until Thu11/21/22 at 0206, Administer in 25-100 mcg increments as directed by endoscopy procedure Practitioner up to a total of 300 mcg. (Give only during endoscopy procedure visit) Given 11/20/2022 7:50 AM CDT 200 mcg midazolam (VERSED) injection 0.5-2 mg 0.5-2 mg, Intravenous, PRN, Sedation, Starting on Thu11/18/22 at 1328, Until Thu11/21/22 at 0206, Administer in 0.5-2 mg increments as directed by endoscopy procedure Practitioner up to a total of 8 mg. (Give only during endoscopy procedure visit) Given 11/20/2022 7:51 AM CDT 4 mg sodium chloride 0.9% injection 10-60 mL 10-60 mL, Intravenous, PRN, Line Patency, For port access and deaccess only, Starting on Thu11/18/22 at 1328, Until Thu11/21/22 at 0206 Given 11/20/2022 7:51 AM CDT 20 mL documented in this encounter Care Teams Car Spotter Relationship Specialty Start Date End Date Kaykay Duarte APRN, LITHOGRAPHY CONTACT WORKER [address] [place] [address] PCP - General Nurse Practitioner 10/25/21 documented as of this encounter
--- OUTSIDE RECORDS SUMMARY | 2023-05-09 18:29 | XMS_ITS | Encounter Summary ---
Author Name Unknown Organization [facility] Address [address] [address] Care Team Providers Care Insurance Adviser Name Role Phone Kaykay Duarte APRN, CNP Primary Care Provid er Reason for Referral * Consult/Transfer Care (Routine) - Closed Specialty Diagnoses / Procedures Referred By Osmar gallego Referred To Contact Diagnoses Cholesteatoma, unspecified laterality Kaykay Duarte APRN, CNP [address] [place] [address] Referral ID Status Reason Start Date Expiration Date Visits Re quested Visits Authorized [id number] Closed 10/20/2022 04/18/2023 1 1 Scheduling Instructions This order is your clinician's recommendation for a service and is not an insurance referral which authorizes payment. The recommended service and/or location may not be covered by your insurance plan. Please call the number on your insurance card to find out your specific benefits and coverage for the recommended services and/or location. If you need help scheduling the recommended services, please ask your clinician's staff to assist you. Question Answer Appointment Urgency? Non-Urgent Comments [facility] consultation recommended given complexity of her ear condition per Dr Quinonez Left: Opacification of the posterior inferior left mastoid air cells. The remaining left mastoid air cells and mastoid antrum are clear. Middle ear cavity is clear. Normal articulation of the ossicular chain. No opacification of sinus tympani. Normal tympanic membrane. The external auditory canal is patent. Tegmen tympani is intact. Normal mineralization of the otic capsule. Normal cochlea and vestibule. Normal internal auditory canal. Right: Opacification coalescence of the right mastoid air cells and mastoid antrum. 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 There is normal articulation of the prosthesis at the oval window. Thinning of tegmen tympani but without eduardo dehiscence. Reason for Visit * Reason Comments REFERRAL REQUEST Encounter Details Date Type Department Care Team (Late st Contact Info) Description 10/20/2022 Telephone [facility] [address] [place] [address] Kaykay Duarte APRN, LEAH [address] [place] [address] REFERRAL REQUEST Social History Tobacco Use Types Packs/Day Years [...] as of this encounter Nursing Notes * Yamini Ramos LPN - 10/21/2022 2:51 PM CDT Called patient and relayed provider's message below. Patient verbalized understanding and spoke with their insurance. Insurance will not cover referral. Patient declined ENT referral at this time. Nofurther actions needed. * Nedra Denny LPN - 10/20/2022 2:43 PM CDT Left voicemail with message below. * Kaykay Durate APRN, LEAH - 10/20/2022 1:59 PM CDT Plz call patient. I have placed a consult order for [facility]. This does not guarantee that her insurance will cover it, so she should verify with [facility] that this referral goes through. * Ana Maria Ruiz LPN - 10/20/2022 12:59 PM CDT Clinician Action: Input needed regarding insurance referral for ENT at [facility] Next Step: Route to [facility] (Clinical Magazine Editor) pool to follow up Specific Request(s): 1. Consult/Referral What specialty/service are you requesting a referral for? [facility] - ENT dept Cholcsteatoma Dr Santos said pt should be seen at [facility] What is the reason for your requested referral? Insurance purposes When were you seen last for this concern? By whom? 09/09/22 Pt states she saw Dr Suresh Quinonez [place] [facility] [place] [facility] [place] Which provider or clinic do you need a referral or order for? [facility] - ENT dept Is the provider or clinic outside of [facility] or [facility]? No Additional comments (related to the above concern): Please confirm with pt when referral has been entered Is it okay to leave detailed message on your voicemail? Yes Spoke with pt. Pt states that [facility] stated that she need a referral from her primary DrLoretta For a referral to ENT. Pt provided a phone number to [facility] [phone]. Pt has upcoming appt and needs this as soon as possible * Radha Wood - 10/20/2022 8:43 AM CDT Consult/Referral What specialty/service are you requesting a referral for? [facility] - ENT dept Cholcsteatoma Dr Santos said pt should be seen at [facility] What is the reason for your requested referral? Insurance purposes When were you seen last for this concern? By whom? 09/09/22 Pt states she saw Dr Suresh Quinonez at [facility] [place] [facility] [place] Which provider or clinic do you need a referral or order for? [facility] - ENT dept Is the provider or clinic outside of [facility] or [facility]? No Additional comments (related to the above concern): Please confirm with pt when referral has been entered Is it okay to leave detailed message on your voicemail? Yes documented in this encounter Plan of Treatment Scheduled Referrals Name Type Priority Associated Diagnoses Orde r Schedule Otolaryngology Consult Adult/Peds Referral Routine Cholesteatoma, unspecified laterality Ordered: 10/20/2022 documented as of this encounter Visit Diagnoses Diagnosis Cholesteatoma, unspecified laterality- Primary documented in this encounter Care Teams Insurance Adviser Relationship Specialty Start Date End Date Kaykay Duarte, VISUAL BASIC DEVELOPER, CAKE ICER [address] [place] [address] PCP - General Nurse Practitioner 10/25/21 documented as of this encounter
--- OUTSIDE RECORDS SUMMARY | 2023-05-09 18:29 | XMS_ITS | Encounter Summary ---
Author Name Unknown Organization [facility] Address [address] [place] [address] Care Team Providers Care Luggage Attendant Name Role Phone Kaykay Duarte APRN, LEAH Primary Care Provid er Reason for Visit * Reason Comments FALL HIP PAIN Encounter Details Date Type Department Care Team (Late st Contact Info) Description 09/07/2022 Nurse Triage Careline [address] [place] [address] Unknown, Physician [address] [place] [address] FALL; HIP PAIN Social History Tobacco Use Types Packs/Day Years [...] as of this encounter Nursing Notes * Rebecca Mattson RN - 09/07/2022 8:05 PM CDT Verified patient identity: Yes with patient Situation/Background (brief explanation of current symptoms/situation): Patient states I tripped over my dog this morning around 1130am, landed right on my right hip. When I laneded felt pain in the hip and severe pain in groin, as the day has gone on it has gotten worse. Going upstairs and lifting leg forward to get in the car is very painful. Patient states she is able to stand and walk but has severe pain with movement. Patient states when she is sitting still pain the pain is a 3 or 4/10. Patient states she took ibuprofen 1 1/2 hours ago and it hasn't helped. Reviewed with patient pertinent medical history (as it related to the call): Yes Reviewed with patient pertinent medications (as they relate to call): Yes Has hx of hip pain and tenderness. Reviewed with patient pertinent allergies (as they relate to call): Yes Reason for Disposition Followed a hip injury [1] SEVERE pain AND [2] not improved 2 hours after pain medicine/ice packs Protocols used: Hip [id number], Hip [id number]-MT Plan: See HCP within 4 hours. Patient/caller agrees with plan. Patient/caller verbalizes understanding and has no further questions at this time. Advised patient/caller to call back CareLine if there are further questions or concerns. The CareLine is available 13/10. Rebecca Ledezma RN Careline 8:15 PM 09/07/2022 * Lakshmi Wade - 09/07/2022 8:03 PM CDT Verified patient identity using three identifiers: Yes Caller's relationship to patient: Self Do you get your primary care at a HP or PN clinic: PN Are you calling about a related concern: No Do you see a PN specialist for the reason you are calling? No Does patient have Red Flag Symptoms? Yes HP Select Member: No Symptoms Describe the reason for call/symptoms (include location and duration if applicable): Tripped over dog falling on right hip on the carpet. Severe pain when moving. Moderate when sitting still. Plan:Caller transferred directly to CareLine nurse. documented in this encounter Plan of Treatment Not on file documented as of this encounter Visit Diagnoses Not on filedocumented in this encounter Care Teams Luggage Attendant Relationship Specialty Start Date End Date Kaykay Duarte APRN, BIOLOGY LECTURER [address] [place] [address] PCP - General Nurse Practitioner 10/25/21 documented as of this encounter
--- OUTSIDE RECORDS SUMMARY | 2023-05-09 18:29 | XMS_ITS | Encounter Summary ---
Author Name Unknown Organization [facility] Address [address] [address] Care Team Providers Care Technician Chemical Cleaning Name Role Phone Reji Duarte APRN, CNP Primary Care Provid er Reason for Visit * Reason Comments Refill levothyroxine (SYNTH ROID) 200 MCG tablet [Pharmacy Med Name: Levothyroxine Sodium Oral Tablet 200 MCG] Encounter Details Date Type Department Care Team (Late st Contact Info) Description 08/09/2022 Refill [facility] Medicine [address] [place] [address] Reji Duarte APRN, CNP [id number] [place] [address] Refill (levothyroxine (SYNTHROID) 200 MCG tablet [Pharmacy [...] as of this encounter Nursing Notes * Casie Laboy RN - 08/11/2022 10:11 AM CDT Further Assistance Needed on Refill from Clinician RN reviewed. Patient due for Lab(s). TSH is overdue (performed 15 months ago, required every 12 months) Last qualifying visit: 09/13/2021 (with REJI DUARTE) (A more recent visit (in Family Practice with LEE TORRES) was found) Next scheduled visit: None Review pended order for accuracy and sign if appropriate, Clinician to order lab(s) and document ifpatient is due for lab only visit or office visit and lab, and Route to Front Line to schedule appointment Requested Prescriptions Pending Prescriptions Disp Refills levothyroxine (SYNTHROID) 200 MCG tablet [Pharmacy Med Name: Levothyroxine Sodium Oral Tablet 200 MCG] 90 Tablet 0 Sig: Take 1 Tablet (200 mcg) by mouth daily. * Interface, Out Surescripts Prov Query - 08/09/2022 11:06 AM CDT levothyroxine (SYNTHROID) 200 MCG tablet [Pharmacy Med Name: Levothyroxine Sodium Oral Tablet 200 MCG] Medication started: 08/25/2017 Last ordered by REJI DUARTE C: 05/23/2021 (443 days ago) QTY: 90, Refills: 3, Sig: take 1 tablet (200 mcg) by mouth daily. (unchanged) -> TSH is overdue (performed 15 months ago, required every 12 months) Last qualifying visit: 09/13/2021 (with REJI DUARTE) (A more recent visit (in Family Practice with CUTT, LEE A) was found) Next scheduled visit: None TSH: 0.4 mIU/L on 05/22/2021 [facility] Embedded Refills, Reference: [id number], 08/09/2022 11:06:00 AM CDT, Pool: DEBRA FP REFILL ([id number]) * Interface, Out [employer] Prov Query - 08/09/2022 11:06 AM CDT The following lab order(s) may be associated with the following Patient Result Comment (Entered by Reji Duarte APRN, CNP at 05/23/2021 8:51 AM): TSH, SENSITIVE Billie, Your A1C is creeping back up. I recommend that you schedule an appt with the IDC to adjust your treatment plan. TSH is normal, I will refill your levothyroxine.FARIHA Rabago documented in this encounter Plan of Treatment Not on file documented as of this encounter Visit Diagnoses Not on filedocumented in this encounter Care Teams Technician Chemical Cleaning Relationship Specialty Start Date End Date Reji Duarte APRN, CNP [address] [place] [address] PCP - General Nurse Practitioner 10/25/21 documented as of this encounter
--- OUTSIDE RECORDS SUMMARY | 2023-05-09 18:29 | XMS_ITS | Encounter Summary ---
Author Name Unknown Organization [facility] Address [address] [address] Care Team Providers Care Die Maker Name Role Phone Kaykay Duarte APRN, LEAH Primary Care Provid er Reason for Visit * Procedure/Equipment (Routine) - Incomplete Specialty Diagnoses / Procedures Referred By Contac t Referred To Contact Diagnoses Hip injury, right, initial encounter Procedures XR Pelvis W Rt Lateral Hip Gulshan Tillman MD [address] [facility] [place] [address] Referral ID Status Reason Start Date Expiration Date V isits Requested Visits Authorized [id number] Incomplete 09/11/2022 12/11/2023 1 1 Encounter Details Date Type Department Care Team (Late st Contact Info) Description 09/11/2022 4:25 PM CDT Ancillary Procedure [facility] [address] [place] [address] Gulshan Tillman MD [address] [facility] [address] [place] [id number] Hip injury, right, initial encounter Social History Tobacco Use Types Packs/Day [...] Procedure Name Priority Date/Time Associated Diagnosis Comments XR PELVIS W RT LATERAL HIP Routine 09/11/2022 4:33 PM CDT Hip injury, right, initial encounter documented in this encounter Results * XR Pelvis W Rt Lateral Hip (09/11/2022 4:33 PM CDT) Anatomical Region Laterality Modality Pelvis, Hip Digital Radiogra phy 09/11/2022 4:33 PM CDT Impressions 09/11/2022 5:06 PM CDT COMPARISON: ??03/04/2022 FINDINGS: ??Moderate osteoarthritis in the right hip is similar to prior. No acute bone or joint abnormalities. Narrative Procedure Note Mars Lane MD - 09/11/2022 IMPRESSION COMPARISON: 03/04/2022 FINDINGS: Moderate osteoarthritis in the right hip is similar to prior.No acute bone or joint abnormalities. Gulshan Tillman MD RAD [facility] documented in this encounter Visit Diagnoses Diagnosis Hip injury, right, initial encounter documented in this encounter Care Teams Die Maker Relationship Specialty Start Date End Date Kaykay Duarte, SUPERVISING BROKER, BUTCHER SCULLION [address] [place], [place] [address] PCP - General Nurse Practitioner 10/25/21 documented as of this encounter
--- OUTSIDE RECORDS SUMMARY | 2023-05-09 18:29 | XMS_ITS | Encounter Summary ---
Author Name Unknown Organization [facility] Address [address] [address] Care Team Providers Care Staffing Executive Name Role Phone Kaykay Duarte APRN, LEAH Primary Care Provid er Reason for Visit * Reason Comments Refill rOPINIRole (REQUIP) 2 MG tablet [Pharmacy Med Name: rOPINIRole HCl Oral Tablet 2 MG] Encounter Details Date Type Department Care Team (Late st Contact Info) Description 10/03/2022 Refill [facility] [address] [facility] [address] [facility] [place], [place] [id number] Janessa Torres PA-C [address] [facility] [address] [place], [place] [id number] Refill (rOPINIRole (REQUIP) 2 MG tablet [Pharmacy Med Name: rOPINIRole HCl Oral Tablet 2 MG]) Social History Tobacco Use Types Packs/Day Years [...] as of this encounter Nursing Notes * Filemon Guerrero - 10/03/2022 3:43 PM CDT Patient notified of sent Rx. Patient stated they will schedule an annual visit at a later time. * Janessa Torres PA-C - 10/03/2022 3:10 PM CDT 90 day Rx sent. Needs annual visit with PCP. Janessa Torres PA-C 10/03/2022, 3:16 PM * Opal Torres RN - 10/03/2022 3:01 PM CDT Further Assistance Needed on Refill from Clinician Signed order needed. Order previously signed by another Elvia Nugent Clinician. Last qualifying visit: 06/03/22 Next scheduled visit: None Review pended order for accuracy and sign if appropriate and Close encounter Requested Prescriptions Pending Prescriptions Disp Refills rOPINIRole (REQUIP) 2 MG tablet [Pharmacy Med Name: rOPINIRole HCl Oral Tablet 2 MG] 180 Tablet 2 Sig: TAKE TWO TABLETS BY MOUTH EVERY EVENING * Interface, Out Surescripts Prov Query - 10/03/2022 2:51 PM CDT rOPINIRole (REQUIP) 2 MG tablet [Pharmacy Med Name: rOPINIRole HCl Oral Tablet 2 MG] Medication started: 04/14/2017 Last ordered by KAYKAY DUARTE C: 10/17/2021 (351 days ago) QTY: 180, Refills: 3, Sig: take two tablets by mouth every evening (unchanged) -> An office visit is overdue (performed 13 months ago, required every 12 months). -> Refill x 1 month (courtesy refill. overdue for an office visit) Last qualifying visit: 09/13/2021 (with KAYKAY DUARTE) (A more recent visit (in Family Practice with JANESSA TORRES) was found) Next scheduled visit: None [facility] Embedded Refills, Reference: [id number], 10/03/2022 2:51:19 PM CDT, Pool: DEBRA FP REFILL ([id number]) documented in this encounter Plan of Treatment Not on file documented as of this encounter Visit Diagnoses Diagnosis Uncontrolled restless legs syndrome- Primary documented in this encounter Care Teams Staffing Executive Relationship Specialty Start Date End Date Kaykay Duarte, SERVICE MECHANIC, ANTISQUEAK CHALKER [address] [place], [place] [address] PCP - General Nurse Practitioner 10/25/21 documented as of this encounter
--- OUTSIDE RECORDS SUMMARY | 2023-05-09 18:29 | XMS_ITS | Encounter Summary ---
Author Name Unknown Organization [facility] Address [address] [place] [address] Care Team Providers Care Social Worker Health Services Name Role Phone Kaykay Duarte APRN, LEAH Primary Care Provid er Reason for Referral * Procedure/Equipment (Routine) - Incomplete Specialty Diagnoses / Procedures Referred By Contac t Referred To Contact Diagnoses Strain of hip flexor, right, initial encounter Procedures MR Femur Rt WO IV Cont Gulshan Tillman MD [address] [facility] [place] [address] Referral ID Status Reason Start Date Expiration Date V isits Requested Visits Authorized [id number] Incomplete 09/11/2022 12/11/2023 1 1 * Procedure/Equipment (Routine) - Incomplete Specialty Diagnoses / Procedures Referred By Contac t Referred To Contact Diagnoses Hip injury, right, initial encounter Procedures XR Pelvis W Rt Lateral Hip Gulshan Tillman MD [address] [facility] [place] [address] Referral ID Status Reason Start Date Expiration Date V isits Requested Visits Authorized [id number] Incomplete 09/11/2022 12/11/2023 1 1 Reason for Visit * Reason Comments INJURY, HIP Right hip injury 08-21 Encounter Details Date Type Department Care Team (Late st Contact Info) Description 09/11/2022 4:20 PM CDT Office Visit [facility] [address] [facility] [place] [address] Gulshan Tillman MD [address] [facility] [place] [address] Hip injury, right, initial encounter (Primary Dx); Strain of hip flexor, right, initial encounter Social History Tobacco Use [...] Pressure - - Pulse - - Temperature 36.9 ??C (98.4 ??F) 09/11/2022 4:11 PM CD T Respiratory Rate - - Oxygen Saturation - - Inhaled Oxygen Concentration - - Weight 136.1 kg (300 lb) 09/11/2022 4:11 PM CDT Height 167.6 cm (5' 6) 09/11/2022 4:11 PM CDT Body Mass Index 48.42 09/11/2022 4:11 PM CDT documented in this encounter Patient Instructions * Patient Instructions* Brittnee Trammell, ATC - 09/11/2022 4:20 PM CDT Thank you for choosing [facility] for your health care visit today. Gulshan Tillman MD Medication Requests: Prescriptions are filled on Weekdays before 3:00PM For all medication refills: Request a refill using [employer] or contact your Pharmacy Paperwork Requests: FMLA or disability paperwork can be faxed to: [phone] Please allow 7-10 business days for completion of all paperwork. [facility] Worker's Compensation Services: E-mail Address: [email or web address] What is Know Your Cost? Know Your Cost is a service for patients and patient/members to call and receive personalized cost information and estimates across our care group. The phone number is (COST) Thursday - Thursday 8 AM to 5 PM To request copies of your medical records, call: [phone] (option 4) Diagnosis: Right Hip Pain Plan: MRI femur Follow up in the clinic after the MRI for results - physician will not call with results To schedule MRI at [facility], call: [phone] If you have any questions regarding your visit or next steps, please contact us at [phone]. documented in this encounter Progress Notes * Gulshan Tillman MD - 09/11/2022 4:20 PM CDT [facility] Note Date of visit: 09/11/2022 Chief Complaint Patient presents with INJURY, HIP Right hip injury 09-07-22 HPI: Billie Cononlly is a 51 y.o. female who presents today for evaluation of right hip pain x 4 days. Injury occurred when she tripped over her dog and landed on her right hip/twisted her leg. Pain is located in groin area. Unable to flex hip due to the pain. Pain is worse with driving or with steps. Self treated with OTC with no improvement. Unable to sleep because of the pain. History: PMH, PSH, Medications, Allergies were reviewed ROS: No additional concerns noted as per HPI PE: Filed Vitals: 09/11/22 1611 Temp: 36.9 ??C (98.4 ??F) TempSrc: Tympanic Weight: 136.1 kg (300 lb) Height: 1.676 m (5' 6) General/ Constitutional: Well nourished, well developed, no apparent distress Respiratory: Normal respirations, no retractions Neurological: Oriented to person, place, and time Psychological: Normal mood and affect MSK Right Hip Exam Tenderness The patient is experiencing tenderness in the anterior. Range of Motion Abduction: normal Adduction: normal Extension: normal Flexion: abnormal External rotation: normal Internal rotation: normal Muscle Strength Abduction: 5/5 Adduction: 5/5 Flexion: 2/5 Tests KATIE: positive Other Sensation: normal Pulse: present Imaging Xray of right hip FINDINGS: Moderate osteoarthritis in the right hip is similar to prior. No acute bone or joint abnormalities. Independently reviewed by myself Assessment: ICD-10-CM 1. Hip injury, right, initial encounter S79.911A XR Pelvis W Rt Lateral Hip 2. Strain of hip flexor, right, initial encounter S76.011A Plan -will obtain an MRI to eval for possible proximal quad/hip flexor injury -percocet PRN for breakthrough pain -Start/continue supportive care measures (rest, activity modification, ice, heat, pain meds as needed) -follow up after MRI Gulshan Tillman MD, [facility] documented in this encounter Plan of Treatment Scheduled Orders Name Type Priority Associated Diagnoses Orde r Schedule MR Femur Rt WO IV Cont Imaging New STAT Strain of hip flexor, right, initial encounter Expected: 09/11/2022 (Approximate), Expires: 09/11/2023 documented as of this encounter Results * XR Pelvis W [...] Visit Diagnoses Diagnosis Hip injury, right, initial encounter- Primary Strain of hip flexor, right, initial encounter Hip injury, right, initial encounter documented in this encounter Care Teams Social Worker Health Services Relationship Specialty Start Date End Date Kaykay Duarte, ROAD ROLLER ENGINEER, LACQUER PIN PRESS OPERATOR [address] [place] [address] PCP - General Nurse Practitioner 10/25/21 documented as of this encounter
[2023-05-09 18:30] LABS: Chloride* 106 mmol/L (96-114); Sodium* 140 mmol/L (135-149)
--- OUTSIDE RECORDS SUMMARY | 2023-05-09 18:30 | XMS_ITS | Encounter Summary ---
Author Name Unknown Organization [facility] Address [address] [place] [address] Phone Care Team Providers Care Systems Support Engineer Name Role Phone Unavailable Primary Care Provider Unavailabl e Encounter Details Date Type Department Care Team (Latest Contact Info) Description 06/09/2022 Travel Social History Tobacco Use Types Packs/Day Years Used Date Smoking Tobacco: Never Assessed Sex and Gender Information Value Date Recorded Sex Assigned at Female 06/04/2022 9:42 AM CDT Gender Identity Female 06/04/2022 9:42 AM CDT Sexual Orientation Not on file Job Start Date Occupation Industry Not on file Not on file Not on file COVID-19 Exposure Response Date Recorded In the last 10 days, have yo u been in contact with someone who was confirmed or suspected to have Coronavirus/COVID-19? No / Unsure 06/09/2022 9:26 PM CDT documented as of this encounter Plan of Treatment Not on file documented as of this encounter Visit Diagnoses Not on filedocumented in this encounter
--- OUTSIDE RECORDS SUMMARY | 2023-05-09 18:30 | XMS_ITS | Encounter Summary ---
Author Name Unknown Organization [facility] Address [address] [place] [address] Phone Care Team Providers Care Tag Writer Name Role Phone Kaykay Duarte Primary Care Provider [phone] Encounter Details Date Type Department Care Team (Late st Contact Info) Description 07/22/2022 7:58 AM CDT - 07/22/2022 11:59 PM CDT Hospital Encounter [facility] [address] [place] [phone] Joshua Daniel MD [address] [place] [address] Gastroesophageal reflux disease, unspecified whether esophagitis present Discharge Disposition: Discharged Social History Tobacco Use Types Packs/Day Years Used Date Smoking Tobacco: Never Smokeless Tobacco: Never Alcohol Use Standard Drinks/Week Comments Never 0 (1 standard drink = 0.6 oz pur e alcohol) Sex and Gender Information Value Date Recorded [...] suspected to have Coronavirus/COVID-19? No / Unsure 07/21/2022 9:23 AM CDT documented as of this encounter Medications at Time of Discharge Medication Sig Dispensed Refills Start Date End Date albuterol (Proventil, Ventolin) (2.5 MG/3ML) 0.083% nebulizer solution Inhale 2.5 mg into the lungs every four hours as needed. 0 09/17/2020 Ventolin HFA 108 (90 Base) MCG/ACT inhalation aerosol INHALE TWO PUFFS BY MOUTH EVERY SIX HOURS NEEDED FOR WHEEZING 0 02/20/2022 Dulera 200-5 MCG/ACT inhalation aerosol Inhale 1 Puff two times a day. Rinse mouth/gargle after use. 0 03/01/2022 gabapentin (Neurontin) 100 MG capsule Take 100 mg by mouth every morning. 0 06/03/2022 gabapentin (Neurontin) 600 MG tablet Take 600 mg by mouth at bedtime. 0 05/18/2022 Mounjaro 15 MG/0.5ML solution pen-injector 0 06/09/2022 rOPINIRole (Requip) 2 MG tablet Take 4 mg by mouth every evening. 0 04/11/2022 celecoxib (CeleBREX) 200 MG capsule TAKE ONE CAPSULE BY MOUTH TWICE A DAY NEEDED FOR PAIN 0 03/04/2022 levonorgestrel (Mirena) 20 MCG/DAY 52 mg intra uterine device Insert 1 Each into the uterus one time. 0 Accu-Chek Guide USE 1 STRIP TO TEST THREE TIMES A DAY. 0 04/11/2022 glucose blood test (Accu-Chek Guide) 1 Each three times a day. 0 04/10/2022 insulin pen needle 31G X 8 MM device Inject 1 Each under the skin one time a day. 0 02/08/2021 lancets device 1 Each three times a day. 0 04/16/2022 levothyroxine (Synthroid) 200 MCG tablet Take 200 mcg by mouth one time a day. 0 05/23/2021 documented as of this encounter Discharge Disposition Disposition Code Departure Means Destination Discharged documented in this encounter Plan of Treatment Not on file documented as of this encounter Procedures Procedure Name Priority Date/Time Associated Diagnosis Comments XR UGI WITHOUT AIR Routine 07/22/2022 8: 21 AM CDT Gastroesophageal reflux disease, unspecified whether esophagitis present documented in this encounter Results * XR UGI WITHOUT AIR (07/22/2022 8:21 AM CDT) Anatomical Region Laterality Modality Abdomen, Other Radiographic Ana Maria ging 07/22/2022 8:04 AM CDT Narrative 07/22/2022 8:40 AM CDT PROCEDURE: XR UGI WITHOUT AIR HISTORY: Gastro-esophageal reflux disease without esophagitis COMPARISON: None FINDINGS: The patient easily swallowed thin liquid [...] IMPRESSION: Intact gastric sleeve. Negative upper GI. Total fluoroscopy time: 1 minute 54 seconds. Number of images: 13. Electronically signed by Venkata Barragan MD Report Date: 07/22/2022 8:40 AM Procedure Note Venkata Barragan MD - 07/22/2022 PROCEDURE: XR UGI WITHOUT AIR HISTORY: Gastro-esophageal reflux disease without esophagitis COMPARISON: None FINDINGS: The patient easily swallowed thin liquid barium. Esophagealmotility is normal. No hiatal hernia is seen. No gastroesophageal reflux could be elicited. Patient is status post sleeve gastrectomy. The surgical line is intact.There is no extravasation. There is no gastric outlet obstruction. No obviousintrinsic gastric mass is seen. The duodenal bulb is normal in contour and the C-loop is unremarkable. IMPRESSION: Intact gastric sleeve. Negative upper GI. Total fluoroscopy time: 1 minute 54 seconds. Number of images: 13. Electronically signed by Venkata Barragan MD Report Date: 07/22/2022 8:40 AM Joshua Daniel MD [facility] DI[facility]NO[facility] G ORDERABLES documented in this encounter Visit Diagnoses Diagnosis Gastroesophageal reflux disease, unspecified whether esophagitis present documented in this encounter Administered Medications Inactive Administered Medications Medication Order MAR Action Action Date Dose Rate Site barium sulfate (E-Z PAQUE) 96 % suspension 200 mL 200 mL, Oral, ONCE, 1 dose, On 07/22/22 at 0830 Given 07/22/2022 8:12 AM CDT 200 mL documented in this encounter Orders Medications Ordered That Kamran ht Not Have Been Administered Count Last Ordered Date First Ordered Date barium sulfate (E-Z PAQUE) 9 6 % suspension 200 mL 1 07/22/2022 documented in this encounter Care Teams Tag Writer Relationship Specialty Start Date End Date Kaykay Duarte ARNP [address] [id number] PCP - General Nurse Practitioner 07/22/22 documented as of this encounter
--- OUTSIDE RECORDS SUMMARY | 2023-05-09 18:30 | XMS_ITS | Clinical Summary ---
Author Name Unknown Organization [facility] [employer] [facility] Address [address] [place] [phone] Phone Care Team Providers Care Driller Multiple Spindle Name Role Phone Kaykay Duarte Primary Care Provider [phone] Allergies No known active allergies Medications Medication Sig Dispensed Refills Start Date End Date Status albuterol (Proventil, Ventolin) (2.5 MG/3ML) 0.083% nebulizer solution Inhale 2.5 mg into the lungs every four hours as needed. 0 09/17/2020 Active Ventolin HFA 108 (90 Base) MCG/ACT inhalation aerosol INHALE TWO PUFFS BY MOUTH EVERY SIX HOURS NEEDED FOR WHEEZING 0 02/20/2022 Active Dulera 200-5 MCG/ACT inhalation aerosol Inhale 1 Puff two times a day. Rinse mouth/gargle after use. 0 03/01/2022 Active gabapentin (Neurontin) 100 MG capsule Take 100 mg by mouth every morning. 0 06/03/2022 Active gabapentin (Neurontin) 600 MG tablet Take 600 mg by mouth at bedtime. 0 05/18/2022 Active Mounjaro 15 MG/0.5ML solution pen-injector 0 06/09/2022 Act alo rOPINIRole (Requip) 2 MG tablet Take 4 mg by mouth every evening. 0 04/11/2022 Active celecoxib (CeleBREX) 200 MG capsule TAKE ONE CAPSULE BY MOUTH TWICE A DAY NEEDED FOR PAIN 0 03/04/2022 Active levonorgestrel (Mirena) 20 MCG/DAY 52 mg intra uterine device Insert 1 Each into the uterus one time. 0 Active Accu-Chek Guide USE 1 STRIP TO TEST THREE TIMES A DAY. 0 04/11/2022 Active glucose blood test (Accu-Chek Guide) 1 Each three times a day. 0 04/10/2022 Active insulin pen needle 31G X 8 MM device Inject 1 Each under the skin one time a day. 0 02/08/2021 Active lancets device 1 Each three times a day. 0 04/16/2022 Active levothyroxine (Synthroid) 200 MCG tablet Take 200 mcg by mouth one time a day. 0 05/23/2021 Active Active Problems Problem Noted Date Diagnosed Date Weight gain 06/10/2022 Bariatric surgery status 06/10/2022 Type 2 diabetes mellitus wit hout complication, without long-term current use of insulin 06/10/2022 Surgical History Surgery Date Site/Laterality Comments SLEEVE GASTRECTOMY 08/09/2020 N/A Dr. Barillas; Elvia Nugent ABLATE AV NODE FUNCTION Medical History Medical History Date Comments Diabetes (HCC) Thyroid activity decreased Supraventricular tachycardia GERD (gastroesophageal reflux disease) RLS (restless legs syndrome) Social History Tobacco Use Types Packs/Day Years Used Date Smoking Tobacco: Never Smokeless Tobacco: Never Tobacco Cessation:Counseling Given: Not Answered Alcohol Use Standard Drinks/Week Comments Never 0 (1 standard drink = 0.6 oz pur e alcohol) Sex and Gender Information Value Date Recorded Sex Assigned at Female 06/04/2022 9:42 AM CDT Gender Identity Female 06/04/2022 9:42 AM CDT Sexual Orientation Not on file Job Start Date Occupation Industry Not on file Not on file Not on file Obstetrics History Last Filed Vital Signs Vital Sign Reading Time Taken Comments Blood Pressure - - Pulse 86 06/10/2022 12:53 PM CDT Temperature 36.7 ??C (98 ??F) 06/10/2022 12:53 PM CDT Respiratory Rate 14 06/10/2022 12:53 PM CDT Oxygen Saturation 95% 06/10/2022 12:53 PM CDT Inhaled Oxygen Concentration - - Weight 139.9 kg (308 lb 8 oz) 06/10/2022 12:53 P M CDT Height 167.6 cm (5' 6) 06/10/2022 12:53 PM CDT Body Mass Index 49.79 06/10/2022 12:53 PM CDT Plan of Treatment Health Maintenance Due Date Last Done Comments CT Colonography 1968 Cervical Cancer Screening 1968 Cologuard 1968 Colonoscopy 1968 Colorectal Cancer Screening 1968 FIT/FOBT 1968 Hepatitis B Vaccine (Standing Order) (1 of 3 - 3-dose series) 1968 Last pap w/ HPV Testing 1968 Last pap w/o HPV Testing 1968 MAMMO,SCREEN 1968 Sigmoidoscopy 1968 COVID-19 Vaccine (#1) 04/03/1969 DIABETES LIPID PROFILE Q5 YEARS (Standing Order) 1986 DIABETIC EYE EXAM 1986 PERTUSSIS (Standing Order) 10/02/1987 TETANUS (Standing Order) 10/02/1987 Shingrix (Zoster recombinant) vaccine (Standing Order) (1 of 2) 2018 DIABETES MICROALBUMIN Q1 YEAR (Standing Order) 01/09/2022 02/08/2021, 01/04/2020 DIABETES HGB A1C Q6 MONTHS (Standing Order) 10/24/2022 04/26/2022, 09/13/2021, 05/22/2021, Additional history exists Influenza Vaccine Seasonal (Standing Order) (#1) 2022 HCC HHS 20 Diabetes with Chronic Complications 03/23/2023 06/10/2022 DIABETES SERUM CREATININE Q1 YEAR (Standing Order) 06/11/2023 06/10/2022, 02/08/2021, 08/04/2020, Additional history exists HPV Vaccine (Standing Order) Aged Out No longer eligible based on patient's age to complete this topic Pneumococcal/PCV20 Vaccine: Pediatrics (2-5 yrs) and At-Risk Patients (6-64 yrs) (Standing Order) Aged Out No longer eligible based on patient's age to complete this topic Care Teams Driller Multiple Spindle Relationship Specialty Start Date End Date Kaykay Duarte ARNP [address] [id number] PCP - General Nurse Practitioner 07/22/22
--- OUTSIDE RECORDS SUMMARY | 2023-05-09 18:30 | XMS_ITS | Encounter Summary ---
Author Name Unknown Organization [facility] Address [address], [place] [address] Care Team Providers Care Care Program Director Name Role Phone Kaykay Duarte APRN, LEAH Primary Care Provid er Reason for Visit * Reason Comments Other Encounter Details Date Type Department Care Team (Late st Contact Info) Description 05/14/2022 Telephone [facility] [address] Endocrinology [address] [place] [address] Mikayla Sweeney MD [address] [place] [address] Other Social History Tobacco Use Types Packs/Day Years [...] as of this encounter Nursing Notes * Malissa Ceja RN - 05/15/2022 9:44 AM CST Pt was updated. DER AND CHIEF TECHNICAL OFFICER * Mikayla Sweeney MD - 05/15/2022 9:14 AM CST Rx faxed for Mounjaro 15 mg. This is the highest dose. I have not heard of lipotropic injections. DER AND CHIEF TECHNICAL OFFICER * Tao Hannon RN - 05/14/2022 9:40 AM CST Pt is calling to advise that she is on the 12.5 mg weekly dose of Mounjaro and has been tolerating it well. Pt is inquiring about increasing the dose. Pt does not check blood sugars at home very often. States she has not lost weight and is hoping for more weight loss. Current diabetes regimen: Only Mounjaro 12.5 mg weekly Pt also asks about another injection she saw on TikTok called lipotropic injections and is curious what Dr. Sweeney's thoughts are. Please advise. DER AND CHIEF TECHNICAL OFFICER documented in this encounter Plan of Treatment Not on file documented as of this encounter Visit Diagnoses Not on filedocumented in this encounter Care Teams Care Program Director Relationship Specialty Start Date End Date Kaykay Duarte, SPECIAL EDUCATION PARA PROFESSIONAL, AWS ARCHITECT [address] [place] [address] PCP - General Nurse Practitioner 10/25/21 documented as of this encounter
--- OUTSIDE RECORDS SUMMARY | 2023-05-09 18:30 | XMS_ITS | Encounter Summary ---
Author Name Unknown Organization [facility] Address [address], [place] [address] Care Team Providers Care Resource Agent Name Role Phone Reji Duarte APRN, CNP Primary Care Provid er Reason for Visit * Reason Comments Refill gabapentin (NEURONTI N) 600 MG tablet [Pharmacy Med Name: Gabapentin Oral Tablet 600 MG] Encounter Details Date Type Department Care Team (Late st Contact Info) Description 04/10/2022 Refill [facility] Medicine [address] [place] [address] Reji Daurte APRN, CNP [id number] [place] [address] Refill (gabapentin (NEURONTIN) 600 MG tablet [Pharmacy Med Name: Gabapentin Oral Tablet 600 MG]) Social History Tobacco Use Types Packs/Day [...] as of this encounter Nursing Notes * Interface, Out [employer] Prov Query - 04/10/2022 3:10 PM CST gabapentin (NEURONTIN) 600 MG tablet [Pharmacy Med Name: Gabapentin Oral Tablet 600 MG] Medication started: 02/09/2020 Last ordered by REJI DUARTE: 03/04/2021 (402 days ago) QTY: 90, Refills: 5, Sig: take 1 tablet by mouth daily at bedtime. indications: restless leg syndrome (changed) -> Unable to determine if sig has changed, review required. -> Medication cannot be delegated. Last qualifying visit: 09/13/2021 (with REJI DUARTE) Next scheduled visit: None [facility] [employer] Emb[employer]ded Refills, Reference: [id number], 04/10/2022 3:10:49 PM GENERAL WAREHOUSE WORKER, Pool: DEBRA FP REFILL ([id number]) RAL WAREHOUSE WORKER documented in this encounter Plan of Treatment Not on file documented as of this encounter Visit Diagnoses Diagnosis Restless legs syndrome Restless legs syndrome (RLS) documented in this encounter Care Teams Resource Agent Relationship Specialty Start Date End Date Reji Duatre, AIRLINE SECURITY REPRESENTATIVE, MERCHANDISE SHOPPER [address] [place] [address] PCP - General Nurse Practitioner 10/25/21 documented as of this encounter
--- OUTSIDE RECORDS SUMMARY | 2023-05-09 18:30 | XMS_ITS | Encounter Summary ---
Author Name Unknown Organization [facility] Address [address], [place] [address] Care Team Providers Care Whipped Topping Mixer Name Role Phone Kaykay Duarte APRN, CNP Primary Care Provid er Reason for Visit * Reason Comments Vaginal Odor Encounter Details Date Type Department Care Team (Late st Contact Info) Description 04/14/2018 Nurse Triage [facility] [address] [place], [place] [phone] Kaykay Duarte APRN, LEAH [id number] [place] [id number] Vaginal Odor Social History Tobacco Use Types Packs/Day Years Used Date Smoking Tobacco: Never Smokeless Tobacco: Never Alcohol Use Standard Drinks/Week Comments Yes 1 (1 standard drink = 0.6 oz pur e alcohol) Sex and Gender Information Value Date Recorded Sex Assigned at Not on file Gender Identity Not on file Sexual Orientation Not on file documented as of this encounter Nursing Notes * Eliza Reinoso LPN - 04/14/2018 3:31 PM CST Pt notified and states she can not make either time offered. States she will go to Urgent Care ONATING STONE CLEANER * Kaykay Duarte APRN, CNP - 04/14/2018 3:22 PM CST Plz call pt. Ok to work her in on at 11:40 or 1pm. Electronically signed by Kaykay Duarte, OPERATIONS DISPATCHER, WAGE AND SALARY ADMINISTRATOR at 04/14/2018 3:22 PM CARBONATING STONE CLEANER * Geri Burnett, RN - 04/14/2018 3:09 PM CST Clinician Action: Appointment Work In Reason Vaginal discharge/odor Clinician Next Step: Route to [facility] to follow up and Patient IS expecting a call back from care team Specific Request(s): 1. Pt asking for a work in [facility] for vaginal discharge (white) and odor x 2 weeks. Has hx of bacterial vaginosis, per pt. Denies abdominal pain, rashes, bumps or sores. Problem list reviewed as related to this call. Reason for Disposition ??? Bad smelling vaginal discharge Answer Assessment - Initial Assessment Questions 1. DISCHARGE: Describe the discharge. (e.g., white, yellow, green, newby, foamy, cottage cheese-like) white 2. ODOR: Is there a bad odor? yes 3. ONSET: When did the discharge begin? 2 weeks ago 4. RASH: Is there a rash in that area? If so, ask: Describe it. (e.g., redness, blisters, sores, bumps) no 5. ABDOMINAL PAIN: Are you having any abdominal pain? If yes: What does it feel like? (e.g., crampy, dull, intermittent, constant) no 6. ABDOMINAL PAIN SEVERITY: If present, ask: How bad is it? (e.g., mild, moderate, severe) - MILD - doesn't interfere with normal activities - MODERATE - interferes with normal activities or awakens from sleep - SEVERE - patient doesn't want to move (R/O peritonitis) no 7. CAUSE: What do you think is causing the discharge? Have you had the same problem before? Whathappened then? Maybe bacterial vaginosis 8. OTHER SYMPTOMS: Do you have any other symptoms? (e.g., fever, itching, vaginal bleeding, pain with urination, injury to genital area, vaginal foreign body) no 9. : Is there any chance you are ? When was your last menstrual period? no Protocols used: VAGINAL [id number] ONATING STONE CLEANER * Karen Saunders - 04/14/2018 3:01 PM CST Pt calling back in. Transferred to triage per request. ONATING STONE CLEANER * Jacquelyn Jaquez CNA - 04/14/2018 11:05 AM CST Symptoms Describe your symptoms (if pain, include location): Odor, discharge When did they start? 2 weeks Additional comments (related to the above concern): Pt has had past BV infection. Pt unavailable to speak 11:30-1:00pm today 04/14/18 If a prescription is needed, patient would like it filled at the pharmacy listed in [facility] [employer]. (Verify the pharmacy patient would like to use for this request is highlighted in blue in Pharmacy Selection under [facility] [employer]) Is it okay to leave a detailed message on your voicemail? Yes (Advise caller that the PN call back number will end with [phone] or unknown) For urgent symptoms: Please route and transfer to: Triage Pool (high priority) For routine symptoms: Please route to: Triage Pool (only transfer if caller insists) ONATING STONE CLEANER documented in this encounter Plan of Treatment Not on file documented as of this encounter Visit Diagnoses Not on filedocumented in this encounter Additional Health Concerns Infection Onset Date Last Indicated Resolved Time R/O COVID19 02/08/2021 02/08/2021 02/09/2021 10:0 6 AM CARBONATING STONE CLEANER R/O COVID19 02/17/2021 02/17/2021 02/17/2021 11:3 2 PM CARBONATING STONE CLEANER documented as of this encounter Care Teams Whipped Topping Mixer Relationship Specialty Start Date End Date Kaykay Duarte, OPERATIONS DISPATCHER, WAGE AND SALARY ADMINISTRATOR [address] [place] [address] PCP - General Nurse Practitioner 10/25/21 documented as of this encounter
--- OUTSIDE RECORDS SUMMARY | 2023-05-09 18:30 | XMS_ITS | Encounter Summary ---
Author Name Unknown Organization [facility] [employer] [facility] Address [address] [place] [phone] Phone Care Team Providers Care Director Talent Acquisition Name Role Phone Unavailable Primary Care Provider Unavailabl e Reason for Referral * Office Visit (Routine) - Authorized Specialty Diagnoses / Procedures Referred By Contac t Referred To Contact Nutrition Diagnoses B12 nutritional deficiency Intestinal malabsorption following gastrectomy Achlorhydria, gastric Iron deficiency anemia, unspecified iron deficiency anemia type Vitamin D deficiency Secondary hyperparathyroidism, non-renal (HCC) Joshua Daniel MD [address] [address] Referral ID Status Reason Start Date Expiration Date V isits Requested Visits Authorized [id number] Authorized 06/13/2022 06/13/2023 6 6 Comments Appt with Dietitian: MNT (Medical Nutrition Therapy). Encounter Details Date Type Department Care Team (Late st Contact Info) Description 06/13/2022 Orders Only [facility] [address] [phone] Huong Lindquist RN B12 nutritional deficiency (Primary Dx); Intestinal malabsorption following gastrectomy; Achlorhydria, gastric; Iron deficiency anemia, unspecified iron deficiency anemia type; Vitamin D deficiency; Secondary hyperparathyroidism, non-renal (HCC) Social History Tobacco Use Types Packs/Day Years [...] as of this encounter Plan of Treatment Scheduled Orders Name Type Priority Associated Diagnoses Orde r Schedule ALBUMIN Lab Routine B12 nutritional deficiency Intestinal malabsorption following gastrectomy Achlorhydria, gastric Iron deficiency anemia, unspecified iron deficiency anemia type Vitamin D deficiency Secondary hyperparathyroidism, non-renal (HCC) Expected: 06/13/2022, Expires: 06/14/2023 VITAMIN B12 Lab Routine B12 nutritional deficiency Intestinal malabsorption following gastrectomy Achlorhydria, gastric Iron deficiency anemia, unspecified iron deficiency anemia type Vitamin D deficiency Secondary hyperparathyroidism, non-renal (HCC) Expected: 06/13/2022, Expires: 06/14/2023 THIAMIN, WHOLE BLOOD (VIT B1) Lab Routine B12 nutritional deficiency Intestinal malabsorption following gastrectomy Achlorhydria, gastric Iron deficiency anemia, unspecified iron deficiency anemia type Vitamin D deficiency Secondary hyperparathyroidism, non-renal (HCC) Expected: 06/13/2022, Expires: 06/14/2023 FERRITIN Lab Routine B12 nutritional deficiency Intestinal malabsorption following gastrectomy Achlorhydria, gastric Iron deficiency anemia, unspecified iron deficiency anemia type Vitamin D deficiency Secondary hyperparathyroidism, non-renal (HCC) Expected: 06/13/2022, Expires: 06/14/2023 FOLATE, SERUM Lab Routine B12 nutritional deficiency Intestinal malabsorption following gastrectomy Achlorhydria, gastric Iron deficiency anemia, unspecified iron deficiency anemia type Vitamin D deficiency Secondary hyperparathyroidism, non-renal (HCC) Expected: 06/13/2022, Expires: 06/14/2023 HEMOGLOBIN Lab Routine B12 nutritional deficiency Intestinal malabsorption following gastrectomy Achlorhydria, gastric Iron deficiency anemia, unspecified iron deficiency anemia type Vitamin D deficiency Secondary hyperparathyroidism, non-renal (HCC) Expected: 06/13/2022, Expires: 06/14/2023 VITAMIN D TOTAL Lab Routine B12 nutritional deficiency Intestinal malabsorption following gastrectomy Achlorhydria, gastric Iron deficiency anemia, unspecified iron deficiency anemia type Vitamin D deficiency Secondary hyperparathyroidism, non-renal (HCC) Expected: 06/13/2022, Expires: 06/14/2023 PARATHYROID HORMONE Lab Routine B12 nutritional deficiency Intestinal malabsorption following gastrectomy Achlorhydria, gastric Iron deficiency anemia, unspecified iron deficiency anemia type Vitamin D deficiency Secondary hyperparathyroidism, non-renal (HCC) Expected: 06/13/2022, Expires: 06/14/2023 PYRIDOXAL 5-PHOSPHATE (VIT B6) Lab Routine B12 nutritional deficiency Intestinal malabsorption following gastrectomy Achlorhydria, gastric Iron deficiency anemia, unspecified iron deficiency anemia type Vitamin D deficiency Secondary hyperparathyroidism, non-renal (HCC) Expected: 06/13/2022, Expires: 06/13/2023 Scheduled Referrals Name Type Priority Associated Diagnoses Orde r Schedule APPT WITH DIETITIAN-MNT CC REFERRAL Routine B12 nutritional deficiency Intestinal malabsorption following gastrectomy Achlorhydria, gastric Iron deficiency anemia, unspecified iron deficiency anemia type Vitamin D deficiency Secondary hyperparathyroidism, non-renal (HCC) Ordered: 06/13/2022 documented as of this encounter Visit Diagnoses Diagnosis B12 nutritional deficiency- Primary Other B-complex deficiencies Intestinal malabsorption following gastrectomy Achlorhydria, gastric Achlorhydria Iron deficiency anemia, unspecified iron deficiency anemia type Vitamin D deficiency Unspecified vitamin D deficiency Secondary hyperparathyroidism, non-renal (HCC) Secondary hyperparathyroidism, non-renal documented in this encounter
--- OUTSIDE RECORDS SUMMARY | 2023-05-09 18:30 | XMS_ITS | Encounter Summary ---
Author Name Unknown Organization [facility] Address [address], [place] [address] Care Team Providers Care Vice President Industrial Relations Name Role Phone Kaykay Duarte APRN, LEAH Primary Care Provid er Encounter Details Date Type Department Care Team (Late st Contact Info) Description 01/23/2022 Notes/Orders [facility] Medicine [address] [place] [address] Teetee[place]chan MA Social History Tobacco Use Types Packs/Day Years [...] as of this encounter Nursing Notes * Candace Young - 01/23/2022 12:22 PM CDT A prior authorization is not needed for ALBUterol sulfate HFA (PROAIR HFA) 108 (90 Base) MCG/ACT inhaler. Medication is covered under patient's formulary. Please contact pharmacy and ask them to notify patient when prescription is ready for scrap picker. Brand name Proair HFA and Ventolin HFA are preferred by [facility]. Document using ePA Assistance QuickAction PA Not Needed and click Sign and Complete. ECTOR ALIGNING documented in this encounter Plan of Treatment Not on file documented as of this encounter Visit Diagnoses Not on filedocumented in this encounter Care Teams Vice President Industrial Relations Relationship Specialty Start Date End Date Kaykay Duarte, PIECE CUTTER, CRUISE GUIDE [address] [place] [address] PCP - General Nurse Practitioner 10/25/21 documented as of this encounter
--- OUTSIDE RECORDS SUMMARY | 2023-05-09 18:30 | XMS_ITS | Encounter Summary ---
Author Name Unknown Organization [facility] Address [address] [place] [phone] Phone Care Team Providers Care Vocal Performer Name Role Phone Unavailable Primary Care Provider Unavailabl e Reason for Visit * Reason Comments Consult EDNA from [facility] 08/09/2020 Encounter Details Date Type Department Care Team (Late st Contact Info) Description 06/10/2022 12:45 PM CDT Office Visit [facility] [address] [place] [address] [phone] Joshua Daniel MD [address] [place] [address] Gastroesophageal reflux disease, unspecified whether esophagitis present (Primary Dx); Weight gain; Bariatric surgery status; Type 2 diabetes mellitus without complication, without long-term current use of insulin ([facility]) Social History Tobacco Use Types Packs/Day Years [...] PM CDT documented as of this encounter Last [...] Mass Index 49.79 06/10/2022 12:53 PM CDT documented in this encounter Patient Instructions * Patient Instructions* Joshua Daniel MD - 06/10/2022 12:45 PM CDT Problem List Items Addressed This Visit Endocrine/Metabolic Weight gain Relevant Medications Mounjaro 15 MG/0.5ML solution pen-injector levonorgestrel (Mirena) 20 MCG/DAY 52 mg intra uterine device levothyroxine (Synthroid) 200 MCG tablet Bariatric surgery status Relevant Medications Mounjaro 15 MG/0.5ML solution pen-injector levonorgestrel (Mirena) 20 MCG/DAY 52 mg intra uterine device levothyroxine (Synthroid) 200 MCG tablet Other Relevant Orders THYROID STIMULATING HORMONE COMPREHENSIVE METABOLIC PANEL PARATHYROID HORMONE HEMOGRAM/DIFFERENTIAL Type 2 diabetes mellitus without complication, without long-term current use of insulin (HCC) Relevant Medications Mounjaro 15 MG/0.5ML solution pen-injector Other Visit Diagnoses Gastroesophageal reflux disease, unspecified whether esophagitis present - Primary Relevant Orders XR UGI WITHOUT AIR If your provider has ordered a radiology test that needs to be scheduled at any of the [place] facilities, for your convenience and to offer you the best service, we ask that you contact the [facility] directly at [phone]. If you have an Ultrasound or DEXA order from [facility], those are performed directly by them. Please call [phone] (Talk[facility]) or [phone] ([facility]) to schedule those tests. documented in this encounter Progress Notes * Joshua Daniel MD - 06/10/2022 12:45 PM CDT New Patient Consultation Name: Billie Connolly Age: [age] year old Gender: female Chief Complaint: Cannot lose weight and severe acid reflux daily, with meals and at night. The patient was here to discuss bariatric surgery. She is seeking advice and help because of concern about Not losing much weight after Laparoscopic Sleeve Gastrectomy done at [facility]. History of Present Illness : This 51 year old female had a Sleeve Gastrectomy done at [facility] by a Dr. Barillas on 09-AUG-2020 at 338 pounds BMI 56.25. After almost 2 years she has lost 30 pounds andfeels that she is doing everything she can to lose more. Indeed she has a high knowledge base and follows a fairly careful diet. Of considerable concern to her and to me are her major reflux symptoms. She follows each meal with several tums and she still gets heartburn. She has reflux at night, even to the point of coming up into her mouth. Her operative report says, no hiatal hernia was noted. She has always had a feeling she could eatmore than expected after surgery. She consumes an slovenian muffin, cheese and egg sandwich without hesitation and follows with a few Tums. Her operative report says that they sized over a 40 fr tube. She is on Mounjaro injections without apparent benefit. She is very aware of diet and liquid calorie dangers. She cannot understand why she does not lose weight. Medical Problems Patient Active Problem List Diagnosis ??? Weight gain ??? Bariatric surgery status ??? Type 2 diabetes mellitus without complication, without long-term current use of insulin (HCC) Previous Surgery: Past Surgical History: Procedure Laterality Date ??? ABLATE AV NODE FUNCTION ??? SLEEVE GASTRECTOMY N/A 08/09/2020 Dr. Barillas; [facility] Physical Examination: Vitals: 06/10/22 1253 Pulse: 86 Temp: 36.7 ??C (98 ??F) Resp: 14 Height: 1.676 m (5' 6) Weight: (!) 139.9 kg (308 lb 8 oz) SpO2: 95% BMI (Calculated): 49.79 Body mass index is 49.79 kg/m??. Physical Examination: GENERAL APPEARANCE: Healthy; alert and oriented X3; no acute distress EYES: Conjunctiva, corneas and eyelids normal; pupils equal, round, reactive to light and accommodation (PERRLA); extraocular movements intact (EOMI) MOUTH/OROPHARYNX: Normal LUNGS: Normal respirations; good expansion with good diaphragmatic excursion; clear to auscultationand percussion with no extra sounds HEART: Regular rhythm and rate; S1 and S2 normal; no murmurs, heaves, thrills, clicks or rubs ABDOMEN: Bowel sounds normal; soft; no masses or tenderness, no hepatosplenomegaly NEUROLOGIC: Alert and oriented times 3; mental status normal; cranial nerves II- XII normal; muscle strength 5/5 MUSCULOSKELETAL: Normal PSYCHIATRIC: Mental status normal; judgment and insight good; mood and affect normal; no psychosis present; no hallucinations; no obvious personality disorder Current Outpatient Medications Medication Sig ??? albuterol (Proventil, Ventolin) (2.5 MG/3ML) 0.083% nebulizer solution Inhale 2.5 mg into the lungs every four hours as needed. ??? glucose blood test (Accu-Chek Guide) 1 Each three times a day. ??? insulin pen needle 31G X 8 MM device Inject 1 Each under the skin one time a day. ??? lancets device 1 Each three times a day. ??? levothyroxine (Synthroid) 200 MCG tablet Take 200 mcg by mouth one time a day. ??? Ventolin HFA 108 (90 Base) MCG/ACT inhalation aerosol INHALE TWO PUFFS BY MOUTH EVERY SIX HOURSAS NEEDED FOR WHEEZING ??? Dulera 200-5 MCG/ACT inhalation aerosol Inhale 1 Puff two times a day. Rinse mouth/gargle afteruse. ??? gabapentin (Neurontin) 100 MG capsule Take 100 mg by mouth every morning. ??? gabapentin (Neurontin) 600 MG tablet Take 600 mg by mouth at bedtime. ??? Mounjaro 15 MG/0.5ML solution pen-injector ??? rOPINIRole (Requip) 2 MG tablet Take 4 mg by mouth every evening. ??? celecoxib (CeleBREX) 200 MG capsule TAKE ONE CAPSULE BY MOUTH TWICE A DAY NEEDED FOR PAIN ??? levonorgestrel (Mirena) 20 MCG/DAY 52 mg intra uterine device Insert 1 Each into the uterus onetime. ??? Accu-Chek Guide USE 1 STRIP TO TEST THREE TIMES A DAY. No current facility-administered medications for this visit. Social History: Social History Tobacco Use ??? Smoking status: Never ??? Smokeless tobacco: Never Substance Use Topics ??? Alcohol use: Never Pertinent Family History: No family history on file. Problem List Items Addressed This Visit Endocrine/Metabolic Weight gain Relevant Medications Mounjaro 15 MG/0.5ML solution pen-injector levonorgestrel (Mirena) 20 MCG/DAY 52 mg intra uterine device levothyroxine (Synthroid) 200 MCG tablet Bariatric surgery status Relevant Medications Mounjaro 15 MG/0.5ML solution pen-injector levonorgestrel (Mirena) 20 MCG/DAY 52 mg intra uterine device levothyroxine (Synthroid) 200 MCG tablet Other Relevant Orders THYROID STIMULATING HORMONE COMPREHENSIVE METABOLIC PANEL PARATHYROID HORMONE HEMOGRAM/DIFFERENTIAL Type 2 diabetes mellitus without complication, without long-term current use of insulin (HCC) Relevant Medications Mounjaro 15 MG/0.5ML solution pen-injector Other Visit Diagnoses Gastroesophageal reflux disease, unspecified whether esophagitis present - Primary Relevant Orders XR UGI WITHOUT AIR Assessment: Differential diagnosis includes esophagogastric incompetence and/or overfilling of stomach. Definitely, she has reflux which is concerning at this early date. Today we discussed her diet and reducing cooked foods and fats to achieve a 200 calorie drop in intake and adjusting exercise to achieve a daily exercise plan that accomodates her hip pain limitations. Plan: Baseline Lab studies today and an UGI x-ray to assess stomach size and reflux. Appointment with RD and Exercise Physiology to evaluate and optimize diet and exercise. Return to see me in 3 months with optimal diet and exercise and to review her UGI results, or sooner if needed. She may need corrective surgery if her reflux cannot be controlled. Time spent with patient and charting 60 minutes Joshua Daniel MD documented in this encounter Plan of Treatment Not on file documented as of this encounter Procedures Procedure Name Priority Date/Time Associated Diagnosis Comments PTH, INTACT WO CALCIUM Routine 2:02 PM CDT Bariatric surgery status COMPREHENSIVE METABOLIC PANEL Routine 06/10/2022 2:02 PM CDT Bariatric surgery status HEMOGRAM/DIFF Routine 06/10/2022 2:02 PM CDT Bariatric surgery status THYROID STIMULATING HORMONE Routine 06/10/2022 2:02 PM CDT Bariatric surgery status documented in this encounter Results * XR [...] Daniel MD EC DIAGNOSTIC IMAGIN G ORDERABLES * HEMOGRAM/DIFFERENTIAL (06/10/2022 2:02 PM CDT) WBC 7.9 4.0 - 11.0 X10*3u/L 06/10/2022 2:36 PM CDT [facility] RBC 5.20 3.80 - 5.20 X10*6/uL 06/10/2022 2:36 PM CDT [facility] HGB 14.3 12.0 - 16.0 g/dl 06/10/2022 2:36 PM CDT [facility] HCT 44.6 35.0 - 47.0 % 06/10/2022 2:36 PM CDT [facility] MCV 85.8 80 - 98 fL 06/10/2022 2:36 PM CDT [facility] MCH 27.5 27.0 - 34.0 pg 06/10/2022 2:36 PM CDT [facility] MCHC 32.1 32 - 36 g/dl 06/10/2022 2:36 PM CDT [facility] PLT 219 150 - 420 X10*3/uL 06/10/2022 2:36 PM CDT [facility] Neutrophils Absolute 5.68 2.10 - 7.50 x10*3u/L 06/10/2022 2:36 PM CDT [facility] Lymphocytes Absolute 1.44 0.76 - 4.00 x10*3u/L 06/10/2022 2:36 PM CDT [facility] Monocytes Absolute 0.63 0.00 - 0.90 x10*3u/L 06/10/2022 2:36 PM CDT [facility] Eosinophils Absolute 0.08 0.04 - 0.54 x10*3u/L 06/10/2022 2:36 PM CDT [facility] Basophils Absolute 0.05 0.00 - 0.20 x10*3u/L 06/10/2022 2:36 PM CDT [facility] RDW-SD 40.4 36.5 - 46.3 fL 06/10/2022 2:36 PM CDT [facility] RDW-CV 12.9 11.6 - 14.4 % 06/10/2022 2:36 PM CDT [facility] Immature Granulocytes Absolute 0.04 0.00 - 0.10 X10*3/uL 06/10/2022 2:36 PM CDT [facility] Blood BLOOD SPECIMEN / Unknown Venipuncture / Unknown 06/10/2022 2:02 PM CDT 06/10/2022 2:02 PM CDT Joshua Daniel MD EC HEMATOLOGY ORDERA BLES Performing Organization Address [facility] Co de Phone Number [facility] [address] [place] [address] * PARATHYROID HORMONE (06/10/2022 2:02 PM CDT) Pathologist [facility] Parathyroid Hormone, Intact Only 51.8 7.5 - 53.5 pg/mL 06/12/2022 6:27 AM CDT [facility] Blood BLOOD SPECIMEN / Unknown Venipuncture / Unknown 06/10/2022 2:02 PM CDT 06/10/2022 2:02 PM CDT Joshua Daniel MD EC CHEMISTRY ORDERAB LES Performing Organization Address City/[facility]/ZIP Co de Phone Number [facility] [address] [place], [place] [id number] [place] [address] * (ABNORMAL) COMPREHENSIVE METABOLIC PANEL (06/10/2022 2:02 PM CDT) Pathologist [facility] Sodium 137 135 - 144 mmol/L 06/10/2022 2:48 PM CDT [facility] Potassium 4.1 3.4 - 5.1 mmol/L 06/10/2022 2:48 PM CDT [facility] Chloride 98 98 - 107 mmol/L 06/10/2022 2:48 PM [facility] Carbon Dioxide 34(H) 22 - 30 mmol/L 06/10/2022 2:48 PM [facility] Calcium 9.3 8.6 - 10.3 mg/dL 06/10/2022 2:48 PM [facility] Alkaline Phosphatase 83 38 - 126 U/L 06/10/2022 2:48 PM [facility] Aspartate Aminotransferase 27 14 - 36 U/L 06/10/2022 2:48 PM [facility] Alanine Aminotransferase 35(H) <35 U/L 06/10/2022 2:48 PM [facility] Glucose 138(H) 74 - 100 mg/dL 06/10/2022 2:48 PM [facility] Blood Urea nitrogen 16 7 - 17 mg/dL 06/10/2022 2:48 PM [facility] Creatinine 0.86 0.52 - 1.04 mg/dL 06/10/2022 2:48 PM [facility] Protein, Total 7.4 6.3 - 8.2 g/dL 06/10/2022 2:48 PM [facility] Albumin 4.4 3.5 - 5.0 g/dL 06/10/2022 2:48 PM [facility] Bilirubin, Total 0.3 0.2 - 1.3 mg/dL 06/10/2022 2:48 PM [facility] Globulin 3.0 1.4 - 4.8 g/dL 06/10/2022 2:48 PM [facility] Anion Gap 5 5 - 15 mmol/L 06/10/2022 2:48 PM [facility] Glomerular Filtration Rate >60 >60 mL/min/1. 73 m*2 06/10/2022 2:48 PM [facility] Comment:This calculation use s CKD-EPI 2020 equation; it has not been validated in women. Blood BLOOD SPECIMEN / Unknown Venipuncture / Unknown 06/10/2022 2:02 PM CDT 06/10/2022 2:02 PM CDT Joshua Daniel MD EC CHEMISTRY ORDERAB LES Performing Organization Address City/[facility]/ZIP Co de Phone Number [facility] [address] [place] [address] * THYROID STIMULATING HORMONE (06/10/2022 2:02 PM CDT) Thyroid Stimulating hormone 1.64 0.47 - 4.68 mIU/L 06/10/2022 3:09 PM CDT [facility] Blood BLOOD SPECIMEN / Unknown Venipuncture / Unknown 06/10/2022 2:02 PM CDT 06/10/2022 2:02 PM CDT Joshua Daniel MD EC CHEMISTRY ORDERAB LES ABN Performing Organization Address [facility] Co de Phone Number [facility] [address] [place] [address] documented in this encounter Visit Diagnoses Diagnosis Gastroesophageal reflux disease, unspecified whether esophagitis present- Primary Weight gain Abnormal weight gain Bariatric surgery status Type 2 diabetes mellitus without complication, without long-term current use of insulin ([facility]) Gastroesophageal reflux disease, unspecified whether esophagitis present documented in this encounter Historical Medications * This list may reflect changes made after this encounter. Medication Sig Dispensed Refills Start Date End Date levothyroxine (Synthroid) 200 MCG tablet Take 200 mcg by mouth one time a day. 0 05/23/2021 lancets device 1 Each three times a day. 0 04/16/2022 insulin pen needle 31G X 8 MM device Inject 1 Each under the skin one time a day. 0 02/08/2021 glucose blood test (Accu-Chek Guide) 1 Each three times a day. 0 04/10/2022 Accu-Chek Guide USE 1 STRIP TO TEST THREE TIMES A DAY. 0 04/11/2022 levonorgestrel (Mirena) 20 MCG/DAY 52 mg intra uterine device Insert 1 Each into the uterus one time. 0 celecoxib (CeleBREX) 200 MG capsule TAKE ONE CAPSULE BY MOUTH TWICE A DAY NEEDED FOR PAIN 0 03/04/2022 rOPINIRole (Requip) 2 MG tablet Take 4 mg by mouth every evening. 0 04/11/2022 Mounjaro 15 MG/0.5ML solution pen-injector 0 06/09/2022 gabapentin (Neurontin) 600 MG tablet Take 600 mg by mouth at bedtime. 0 05/18/2022 gabapentin (Neurontin) 100 MG capsule Take 100 mg by mouth every morning. 0 06/03/2022 Dulera 200-5 MCG/ACT inhalation aerosol Inhale 1 Puff two times a day. Rinse mouth/gargle after use. 0 03/01/2022 Ventolin HFA 108 (90 Base) MCG/ACT inhalation aerosol INHALE TWO PUFFS BY MOUTH EVERY SIX HOURS NEEDED FOR WHEEZING 0 02/20/2022 albuterol (Proventil, Ventolin) (2.5 MG/3ML) 0.083% nebulizer solution Inhale 2.5 mg into the lungs every four hours as needed. 0 09/17/2020 added in this encounter
--- OUTSIDE RECORDS SUMMARY | 2023-05-09 18:30 | XMS_ITS | Encounter Summary ---
Author Name Unknown Organization [facility] Address [address] [place] [phone] Phone Care Team Providers Care Drafter Castings Name Role Phone Unavailable Primary Care Provider Unavailabl e Reason for Visit * Reason Onset Date Comments Scheduling 05/21/2022 PT CALLED ECTOR Matthews TO START BARIATRIC TRANSFER OF CARE Encounter Details Date Type Department Care Team ([facility] st Contact Info) Description 05/21/2022 Telephone [facility] BARIATRICS [facility] WEIGHT LOSS [address] [place] [address] [phone] Jessi Canas Scheduling (PT CALLED WANTING TO START BARIATRIC TRANSFER OF CARE ) Social History Tobacco Use Types Packs/Day Years Used Date Smoking Tobacco: Never Assessed Sex and Gender Information Value Date Recorded Sex Assigned at Female 06/04/2022 9:42 AM CDT Gender Identity Female 06/04/2022 9:42 AM CDT Sexual Orientation Not on file Job Start Date Occupation Industry Not on file Not on file Not on file documented as of this encounter Miscellaneous Notes * Telephone Encounter - Jessi Canas - 05/21/2022 4:12 PM CST Billie called today interested in starting the Bariatric Transfer of Care Program. She had sleeve [facility] in July of 2020 [facility]. She has not had a significant weight loss and her PCP is wondering if they didn't take enough of her stomach during the surgery, because she was able to eat larger amounts of food right afterwards. She's having abdominal pain now and asked specifically about revision, sleeve to Roux[facility]. I emailed her the Bariatric Intake Pkt and the DAVID to request her past operation report. I'll call her to get scheduled once I rcv those records. RNAL RELATIONS DIRECTOR documented in this encounter Plan of Treatment Not on file documented as of this encounter Visit Diagnoses Not on filedocumented in this encounter
--- OUTSIDE RECORDS SUMMARY | 2023-05-09 18:30 | XMS_ITS | Encounter Summary ---
Author Name Unknown Organization [facility] Address [address] [place] [phone] Phone Care Team Providers Care Pillowcase Cutter Name Role Phone Unavailable Primary Care Provider Unavailabl e Encounter Details Date Type Department Care Team (Latest Contact Info) Description 07/21/2022 Travel Social History Tobacco Use Types Packs/Day [...]
--- OUTSIDE RECORDS SUMMARY | 2023-05-09 18:30 | XMS_ITS | Encounter Summary ---
Author Name Unknown Organization [facility] [employer] [facility] Address [address] [place] [address] Phone Care Team Providers Care Band Saw Operator Cake Cutting Name Role Phone Unavailable Primary Care Provider Unavailabl e Reason for Visit * Reason Onset Date Comments Requesting Health Records 06/03/2022 FAXED DAVID TO [facility] AGAIN, REQUESTING WEIGHT LOSS SURGERY OPERATION REPORT Encounter Details Date Type Department Care Team (Late st Contact Info) Description 06/03/2022 Telephone [facility]IATRICS AND WEIGHT LOSS [address] [place] [phone] Jessi Canas Requesting Health Records (FAXED DAVID TO [facility] AGAIN, REQUESTING WEIGHT LOSS SURGERY OPERATION REPORT) Social History Tobacco Use Types Packs/Day Years [...] * Telephone Encounter - Jessi Canas - 06/03/2022 8:41 AM CDT I faxed another DAVID to [facility], requesting Billie's past Bariatric/Weight Loss Surgery Operation Report. They sent 70 pages of pre and post op visits for the surgery, but not the Operation report itself. I included a note that we received the other records, but NEED the operation report. documented in this encounter Plan of Treatment Not on file documented as of this encounter Visit Diagnoses Not on filedocumented in this encounter
--- OUTSIDE RECORDS SUMMARY | 2023-05-09 18:30 | XMS_ITS | Encounter Summary ---
Author Name Unknown Organization [facility] Address [address] [place] [phone] Phone Care Team Providers Care Camera Control Operator Name Role Phone Unavailable Primary Care Provider Unavailabl e Reason for Visit * Reason Onset Date Comments Insurance Issue 05/22/2022 PT EMAILED THE [facility] BARIATRIC WEIGHT LOSS RE-OPERATION POLICY Encounter Details Date Type Department Care Team (Late st Contact Info) Description 05/22/2022 Telephone [facility]IATR[facility] WEIGHT LOSS [address] [place] [address] [phone] Jessi Canas Insurance Issue (PT EMAILED THE [facility] [employer] BARIATRIC WEIGHT LOSS RE-OPERATION POLICY ) Social History Tobacco Use Types Packs/Day [...] * Telephone Encounter - Jessi Canas - 05/22/2022 8:27 AM CST Billie called her [employer] and they emailed her the policy for Bariatric Weight Loss Re-operations, for her contract with them. If she does end up having a Revision from Sleeve to RouxEnY, we will needto follow the guidelines listed below. I will also call her Ins after she is seen for initial consult and if it is decided by the surgeon,that she would be having Revision surgery. Weight loss [id number] Administrative Process Prior authorization is required for weight loss (bariatric) surgery re-operations. Coverage: Re-operations after an initial weight loss surgery generally fall into three categories. Please seethe Definitions section below for a description of the following procedures: Surgical reversals (i.e. take-downs) of the original procedure Revisions Conversions Note that coverage criteria may vary between the three types of re-operations as well as between re-operations following laparoscopic adjustable gastric banding (LAGB) versus other types of weight loss surgery. Indications that are covered Re-operations after failure of Laparoscopic Adjustable Gastric Banding (LAGB): Revisions or Reversals of an LAGB may be eligible for coverage to: Treat significant medical/surgical complications related to the surgery Correct medical/surgical complications or malfunction of an implanted device including: Slippage of the band Erosion in the area of the band Port related complications Concentric dilatation Esophageal dilatation Conversion after failure of an LAGB may be eligible for coverage to: Treat significant medical/surgical complications related to the surgery and/or malfunction of an implanted device (see B. i.-v. above) and when revision of the LAGB is not possible; or There is documented failure of the original LAGB surgery to produce weight loss and all of the following criteria are met: At least 2 years have elapsed since the original LAGB procedure The member is currently greater than 30% above ideal body weight Compliance with the previously prescribed postoperative dietary and exercise program is documented by the member???s primary care physician or surgeon every 3 months for one year before the surgery The member has completed at least five sessions with [facility]??? weight loss surgery program phone course. For further information about this phone- based curriculum, please see the Related Content at the right for the Weight loss surgery candidates??? pre- and post-operative phone-based curriculum Frequently Asked Questions. You will be referred into this program by your surgical team. The member must meet these program requirements prior to a second bariatric surgery even if they completed the course prior to their first bariatric surgery. Re-operations after other weight loss surgeries including but not limited to: Juan F-en-Y Gastric Bypass (RYGBP) Biliopancreatic Diversion with Duodenal Switch (BPD/DS) Vertical Sleeve Gastrectomy Vertical Banded Gastroplasty (VBG) Other procedures on a case by case basis Reversal (take-down) surgery Take-down surgery may be eligible for coverage only to treat a significant medical/surgical complication related to the initial surgery. Revision of weight loss surgeries (other than LAGB) Revision surgeries may be eligible for coverage only to treat significant medical/surgical complications related to the initial surgery. Conversions from one weight loss surgery (that was not a LAGB) to another may be eligible for coverage when: One of the following complications is present: Stoma dilation or stenosis Stoma ulcer Severe gastroesophageal reflux Mechanical obstruction Malnutrition OR: There is documented failure of the original surgery to produce weight loss without the complications listed above, when all of the following criteria are met: At least 2 years have elapsed since the previous bariatric procedure The member is currently greater than 30% above ideal body weight Compliance with the previously prescribed postoperative dietary and exercise program is documented by the member???s primary care physician or surgeon every 3 months for one year before the surgery The member has completed at least five sessions with [facility]??? weight loss surgery program phone course. For further information about this phone- based curriculum, please see the Related Content at the right for the Weight loss surgery candidates??? pre- and post-operative phone-based curriculum You will be referred into this program by your surgical team. The member must meet these program requirements prior to a second bariatric surgery even if they completed the course prior to their first bariatric surgery. Indications that are not covered. The following weight loss surgery procedures are considered investigational as there is insufficient reliable evidence in the form of high-quality, peer- reviewed medical literature to establish the safety and efficacy of these treatments or their effect on health care outcomes. Investigational procedures include but are not limited to: The laparoscopic loop or ???Mini-Gastric Bypass?? Intragastric balloon procedures Implantable gastric stimulator Natural Orifice Transluminal Endoscopic Surgery (NOTES)/endoscopic oral-assisted bariatric surgery procedures including, but not limited to: StomaphyX Restorative obesity surgery-endoluminal (JORGE) Transoral gastroplasty (e.g.TOGA) Vagus nerve blocking for obesity control (VBLOC) (e.g. Maestro) Stomach aspiration therapy (e.g. AspireAssist) Definitions Back to top Weight Loss (Bariatric) re-operation refers to subsequent surgery for morbid obesity on a member who had prior bariatric surgical procedures. Re-operations may include surgical reversals (i.e. take-downs) of the original procedure, revisions, and conversions. Surgical reversal (Take-down) reverses the anatomic changes from the initial procedure. Revision surgery modifies and restores the effectiveness of the original bariatric procedure. Conversion surgery is performed to exchange one type of bariatric procedure for another (e.g. conversion of a vertical banded gastroplasty to a Juan F-en-Y procedure). PMENT RECORDS SUPERVISOR documented in this encounter Plan of Treatment Not on file documented as of this encounter Visit Diagnoses Not on filedocumented in this encounter
--- OUTSIDE RECORDS SUMMARY | 2023-05-09 18:30 | XMS_ITS | Encounter Summary ---
Author Name Unknown Organization [facility] Address [address] [place] [phone] Phone Care Team Providers Care Machine Operators Name Role Phone Unavailable Primary Care Provider Unavailabl e Encounter Details Date Type Department Care Team (Latest Contact Info) Description 06/16/2022 Travel Social History Tobacco Use Types Packs/Day [...] suspected to have Coronavirus/COVID-19? No / Unsure 06/16/2022 9:08 PM CDT documented as of this encounter Plan of Treatment Not on file documented as of this encounter Visit Diagnoses Not on filedocumented in this encounter
--- OUTSIDE RECORDS SUMMARY | 2023-05-09 18:30 | XMS_ITS | Encounter Summary ---
Author Name Unknown Organization [facility] Address [address] [address] Care Team Providers Care Ore Washer Name Role Phone Kaykay Duarte APRN, LEAH Primary Care Provid er Encounter Details Date Type Department Care Team (Late st Contact Info) Description 05/16/2022 Notes/Orders Centralized Outreach [address] [place] [address] [address] Mikayla Sweeney MD [address] [place] [address] Type 2 diabetes mellitus without complication, [...] documented as of this encounter Results * Albumin/Creatinine Ratio,Random Urine (08/20/2022 8:36 AM CDT) Albumin/Creati nine Ratio, Urine, Random 10 <30 mg/g 08/20/2022 10:58 AM CDT [facility] Albumin, Urine, Random 18.1 mg/L 08/20/2022 10:58 AM CDT [facility] Creatinine, Urine, Random 182 >20 mg/dL mg/dL 08/20/2022 10:58 AM CDT [facility] Urine Non-blood Collection / Unknown 08/20/2022 8:36 AM CDT 08/20/2022 9:30 AM CDT Mikayla Sweeney MD LAB[facility] [address] [place] [address] [phone] documented in this encounter Visit Diagnoses Diagnosis Type 2 diabetes mellitus without complication, without long-term current use of insulin (HRC) documented in this encounter Care Teams Ore Washer Relationship Specialty Start Date End Date Kaykay Duarte, UX CONSULTANT, LEAD RELAY TESTER [address] [place] [address] PCP - General Nurse Practitioner 10/25/21 documented as of this encounter
--- OUTSIDE RECORDS SUMMARY | 2023-05-09 18:30 | XMS_ITS | Encounter Summary ---
Author Name Unknown Organization [facility] Address [address] [address] Care Team Providers Care Newscast Producer Name Role Phone Kaykay Duarte APRN, LEAH Primary Care Provid er Reason for Visit * Reason Comments Medication Questions Wt loss meds, GERD meds, discuss RNY Encounter Details Date Type Department Care Team (Late Contact Info) Description 05/21/2022 Telephone [facility] [address] [facility] [address] [place] [address] Tanya Riggins brush holder assembler Questions (Wt loss meds, GERD meds, discuss RNY) Social History Tobacco Use Types Packs/Day Years [...] as of this encounter Nursing Notes * Tanya Riggins RN - 05/22/2022 8:41 AM CST Patient left VM stating she had a VSG on 08/09/20. She continues to suffer from significant heartburn/GERD sx's. Takes Pepcid every evening, however, reports the med doesn't work. Also, her weight loss has stalled. She has lost a total of 45 lbs since her surgery. Due to the stalled weight loss and GERD sx's, she wants to discuss a conversion to RNY. She would like to start a weight loss medication in the meantime. Attempted to call her to advise her she needs an appointment. She didn't answer, so left her a VM. When she left her name on her VM, She said her name is Billie Coffman, however, when her phone number was entered to pull up her record, Billie Connolly was pulled up. Noted her spouses l ast name is Augustus. She didn't call back by the end of the day, so sent her a P[employer] message. 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
--- OUTSIDE RECORDS SUMMARY | 2023-05-09 18:30 | XMS_ITS | Encounter Summary ---
Author Name Unknown Organization [facility] Address [address], [place] [address] Care Team Providers Care Kicking Machine Operator Name Role Phone Kaykay Duarte APRN, LEAH Primary Care Provid er Reason for Visit * Reason Comments Procedure Encounter Details Date Type Department Care Team (Late st Contact Info) Description 05/28/2022 2:30 PM ARTIST MANNEQUIN COLORING Procedure Visit [facility] - Urology [address] [facility] [place] [address] Procedure Social History Tobacco Use Types Packs/Day [...] as of this encounter Progress Notes * Amanda Ocasio V RN - 05/28/2022 2:30 PM CST Urodynamic Nursing Procedural Note: Was the patient able to void for pre-test uroflow? Yes . Pre-test catheterized PVR: 20 mL. Pre-test urine dipstick: - nitrites, - leukocytes. Is the patient taking bladder medication? no. Additional helpful information for the clinician: Patient in clinic for UDS complaining of incontinence at night when rolling over in bed, and sometimes when she is walking to the bathroom. I did notsee any stress leaks during test, patient was not able void during test but did void 350 cc's in hat post test. Follow up with Dr. Shaikh on 06/20/22. Amanda Ocasio RN * Meliza Hernandez PA-C - 05/28/2022 2:30 PM CST URODYNAMIC (UDS) BLADDER FUNCTION TEST RESULTS Pre-test Diagnoses: - Nocturnal enuresis. - Urinary urgency. - Urinary frequency. - Urge urinary incontinence (UUI). - Stress urinary incontinence (JUWAN) s/p mid-urethral sling in 01/2021. Therapies Tried: - PSH mid-urethral sling 01/2021. - Not presently maintained on any bladder medication therapy. Pre-Test Uroflowmetry: - Nursing notes mention that the patient voided for pre-test uroflowmetry but there is no tracing for review. - Unknown pre-test voided volume. - Pre-test catheterized PVR: 20 mL. - Urine dip - nitrites, - leuks. Description of Procedure: - 7F vesical catheter in urethra. - 7F abdominal catheter in rectum. - 2 EMG patches placed on the anal verge, grounding patch on knee. - Room temperature NS instilled @ 40-50 mL/minute. - Not maintained on bladder medication. Filling Phase: - First sensation: 6 mL. - First desire: 12 mL. - Strong desire: 194 mL. - Maximum functional bladder capacity: 350 mL. - Detrusor instability: None. - Compliance: Excellent, baseline filling Pdet was zero. - Continence: No visible stress leak at Pabd >200 cm H2O at a bladder volume of 350 mL. - EMG: Grossly concordant. Voiding Phase: - Terminal detrusor contraction: There appears to be possible terminal detrusor contraction underlying significant straining; voiding Pabd >200 cm H2O. Billie was unable to void on the procedure chair, with or without the 7F Pves catheter in. - Voided volume: 350 mL in the private restroom. - Qmax: N/A. - Qavg: N/A. - PVR: 0 mL. - EMG: N/A. - ICS nomogram: N/A. - UTI prophylaxis: A single 100 mg nitrofurantoin capsule was provided post-test. Assessment: Normal functional bladder capacity; 350 mL. Sensory urgency with early sensation of bladder filling; first sensation 6 mL, first desire 12 mL, strong desire 194 mL. No visible detrusor instability observed during filling. No stress leakage at Pabd >200 cm H2O at capacity of 350 mL. Unknown terminal detrusor function; there is questionable terminal detrusor function underlying significant abdominal straining with Pabd >200 cm H2O with inability to void. The patient was persistently unable to without the 7F Pves catheter in. Once in the private restroom the patient voided 350 mL. Successful bladder emptying; unknown pre-test voided volume with catheterized PVR 20 mL, post-test PVR 0 mL. Plan/Recommendations: - Suspect possible overactive bladder. Notably, there was no JUWAN at Pabd >200 cm H2O at capacity. - Agree with planned pelvic examination given h/o sling in 01/2021. - Recommend IC diet. - Consider a trial of beta-3 agonist or low dose anticholinergic bladder medication therapy. - Consider a cystoscopy. - F/U with Dr. Shaikh in the near future as planned for further discussion and management planning. Sincerely, Lucila Hernandez PA-C Department of Urologic Surgery documented in this encounter Plan of Treatment Not on file documented as of this encounter Procedures Procedure Name Priority Date/Time Associated Diagnosis Comments URO COMPLEX CYSTOMETROGRAM VOIDING PRESSURE STUDY Routine 06/14/2022 10:37 PM CDT Urge incontinence Nocturnal enuresis Urinary urgency Urinary frequency Stress incontinence OAB (overactive bladder) URO VOIDING PRESS STUDY INTRA-ABDOMINAL Routine 06/14/2022 10:37 PM CDT Urge incontinence Nocturnal enuresis Urinary urgency Urinary frequency Stress incontinence OAB (overactive bladder) URO UROFLOW CLINIC Routine 06/14/2022 10 :37 PM CDT Urge incontinence Nocturnal enuresis Urinary urgency Urinary frequency Stress incontinence OAB (overactive bladder) URO PATCH EMG Routine 06/14/2022 10:37 PM CDT Urge incontinence Nocturnal enuresis Urinary urgency Urinary frequency Stress incontinence OAB (overactive bladder) URO COMPLEX CYSTOMETROGRAM Routine 06/14 10:37 PM CDT Urge incontinence Nocturnal enuresis Urinary urgency Urinary frequency Stress incontinence OAB (overactive bladder) documented in this encounter Visit Diagnoses Diagnosis Nocturnal enuresis- Primary Urge incontinence Urinary urgency Urgency of urination Urinary frequency Stress incontinence Female stress incontinence OAB (overactive bladder) Hypertonicity of bladder documented in this encounter Administered Medications Inactive Administered Medications - up to 3 most recent administrations Medication Order MAR Action Action Date Dose Rate Site nitrofurantoin monohydrate macrocrystal (MACROBID) capsule 100 mg 100 mg, Oral, ONCE, On Thu05/28/22 at 1515, For 1 dose, Take with food. Modified-release capsule - not suitable for administration via feeding tube., Indications: Postoperative Infection Given 05/28/2022 3:44 PM ARTIST MANNEQUIN COLORING 100 mg documented in this encounter Care Teams Kicking Machine Operator Relationship Specialty Start Date End Date Kaykay Duarte, IMCU NURSE, KNOCKOUT WORKER [address] [place] [address] PCP - General Nurse Practitioner 10/25/21 documented as of this encounter
--- OUTSIDE RECORDS SUMMARY | 2023-05-09 18:30 | XMS_ITS | Encounter Summary ---
Author Name Unknown Organization [facility] Address [address] [place] [phone] Phone Care Team Providers Care Government Teacher Name Role Phone Unavailable Primary Care Provider Unavailabl e Reason for Visit * Reason Onset Date Comments Requesting Health Records 05/22/2022 FAXED DAVID TO [facility] REQUESTING BARIATRIC SURGERY OPERATION REPORT Encounter Details Date Type Department Care Team (Late st Contact Info) Description 05/22/2022 Telephone [facility] BARIATRICS AND WEIGHT LOSS [address] [place] [address] [phone] Jessi Canas Requesting Health Records (FAXED DAVID TO [facility] REQUESTING BARIATRIC SURGERY OPERATION REPORT) Social History Tobacco Use [...] Telephone Encounter - Jessi Canas - 05/22/2022 11:35 AM CST I faxed DAVID to [facility] requesting the operation report for Billie's past Bariatric Surgery, for continuation of care here. LINE SUPERINTENDENT DIVISION documented in this encounter Plan of Treatment Not on file documented as of this encounter Visit Diagnoses Not on filedocumented in this encounter
[2023-05-09 18:31] LABS: Potassium* 3.8 mmol/L (3.6-5.1)
[2023-05-09 18:33] LABS: Anion Gap 6 mEq/L (7-15); Carbon Dioxide* 28 mmol/L (20-32); Creatinine* 0.8 mg/dL (0.5-1.5); Est. Creatinine Clearance* 75.26; Estimated Glomerular Filt Rate 88 ml/min
[2023-05-09 18:34] LABS: Blood Urea Nitrogen* 14 mg/dL (7-30); Calcium* 9.4 mg/dL (8.4-10.6); Glucose* 113 mg/dL (60-115)
[2023-05-09 18:47] LABS: Troponin I* < 0.01 ng/mL (0.01-0.04)
--- NOTE | 2023-05-09 18:53 | ED.GENADULT ---
HPI - General Adult General Chief complaint: Arrhythmia/Palpitations Stated complaint: weird heart palpitations Time Seen by Provider: 05/09/23 17:43 Source: patient Mode of arrival: ambulatory Limitations: no limitations History of Present Illness HPI narrative: 52-year-old female presenting today with palpitations. She states that she has felt palpitations on and off all day long today. She was like her heart goes really fast and then slows down. At 1 point in time made her feel very nauseated and she did vomit 1 time. She also had an episode which cause her some mild chest discomfort, lasted maybe several minutes. Patient states that she does have a history of SVT status post ablation. She also had a gastric bypass done in February of last year. She is concerned that perhaps she is dehydrated and she has not been drinking a lot a water for the next couple of days. She states that the last time she felt palpitations was about 45 minutes prior to presenting to the ED. this feels different than SVT. Patient also has a history of hypothyroidism, states that she had her TSH checked 1 week ago and her medications were adjusted. Related Data Home Medications Medication Instructions Recorded Confirmed gabapentin 600 mg tablet 600 mg PO DAILY 09/10/22 09/10/22 levothyroxine 25 mcg tablet 25 mcg PO DAILY 09/10/22 09/10/22 ropinirole 2 mg tablet 4 mg PO QPM 09/10/22 09/10/22 Allergies Allergy/AdvReac Type Severity Reaction Status Date / Time No Known Drug Allergies Allergy Verified 09/10/22 14:35 Review of Systems Status of ROS: Reports: 10 or more systems reviewed and unremarkable except as noted in History and below [facility] Social History Smoking Status: Never smoker How often do you have a drink containing alcohol: never AUDIT-C Alcohol total score: 0 Non-prescribed substance use: denies use Exam Narrative: Exam Narrative: Obese, well-developed patient in no acute distress. Alert and oriented. Answers questions appropriately. Mood and affect are appropriate. Thoughts are goal oriented and rational. No tangential or magical thinking noted. Patient speaks in full sentences without needing to catch her breath. HEENT: Normocephalic atraumatic. Pupils are equally round reactive to light. Extraocular muscles are intact. Conjunctivae are moist without any icterus noted. Moist mucous membranes. Posterior pharynx is normal. Cardiovascular: Heart is regular rate and rhythm S1 and S2 are present without any murmurs. Lungs: Clear to auscultation bilaterally no wheezes rhonchi or rales are appreciated. Patient takes deep breaths without any discomfort. Abdomen: Soft and nontender nondistended with normal bowel sounds. Extremities: Bilateral lower extremities are without edema. Normal DP and PT pulses. Skin: Well perfused without any obvious rashes. Const: Vital Signs, click to edit/add: Vital Signs - 24 hr 05/09/23 17:37 05/09/23 17:43 05/09/23 17:44 Temperature 98 F Pulse Rate 78 74 Pulse Rate [Pulse Oximeter] 73 Respiratory Rate 18 Blood Pressure 139/86 Blood Pressure [Ri ght Upper Arm] 139/86 Pulse Oximetry 98 98 98 Oxygen Delivery Me thod Room Air 05/09/23 18:00 05/09/23 18:02 05/09/23 18:03 Temperature Pulse Rate 66 68 64 Pulse Rate [Pulse Oximeter] Respiratory Rate Blood Pressure 114/66 Blood Pressure [Ri ght Upper Arm] Pulse Oximetry 94 97 95 Oxygen Delivery Me thod 05/09/23 18:30 05/09/23 18:32 Temperature Pulse Rate 63 59 L Pulse Rate [Pulse Oximeter] Respiratory Rate Blood Pressure 115/69 Blood Pressure [Ri ght Upper Arm] Pulse Oximetry 94 91 Oxygen Delivery Me thod Course Course ED Course: Patient was monitored for approximately 2 hours without any palpitations or irregular heartbeats noted on quality assurance monitor final. She received 1 L of normal saline. Workup including CBC, troponin, electrolytes were all unremarkable. EKG, read by me, shows normal sinus rhythm with a pulse of 78. Nonspecific T-wave abnormality with some inverted T-waves in V1. Patient remained asymptomatic while she was here. Vital Signs Vital signs: Initial Vital Signs Temperature 98 F 05/09/23 17:37 Temperature Source Temporal Artery Scan 05/09/23 17:37 Pulse Rate 73 05/09/23 17:37 Respiratory Rate 18 05/09/23 17:37 Blood Pressure 139/86 05/09/23 17:37 Blood Pressure Mean 103 05/09/23 17:37 Blood Pressure Position Supine 05/09/23 17:37 Pulse Oximetry 98 05/09/23 17:37 Oxygen Delivery Method Room Air 05/09/23 17:37 Vital Signs Temperature 98 F 05/09/23 17:37 Pulse Rate 73 05/09/23 17:37 Respiratory Rate 18 05/09/23 17:37 Blood Pressure 139/86 05/09/23 17:37 Pulse Oximetry 98 05/09/23 17:37 Oxygen Delivery Method Room Air 05/09/23 17:37 Temperature 98 F 05/09/23 17:37 Pulse Rate 59 L 05/09/23 18:32 Respiratory Rate 18 05/09/23 17:37 Blood Pressure 115/69 05/09/23 18:32 Pulse Oximetry 91 05/09/23 18:32 Oxygen Delivery Method Room Air 05/09/23 17:37 Medications Administered Medications: Generic Name Dose Route Start Last Admin Trade Name Freq PRN Reason Stop Dose Admin Sodium Chloride 1,000 mls @ 1,000 mls/hr 05/09/23 18:00 05/09/23 18:41 0.9 % Sodium Chloride 1000 Ml IV 05/09/23 18:59 Infused .Q1H YAIMA Infusion Medical Decision Making MDM Narrative Medical decision making narrative: 52-year-old female palpitations that did cause symptoms, because this patient will be placed on a 24 hour Holter and discharged at this time. Recommend she return to the ED if this is prolonged again tomorrow, otherwise follow-up after Holter monitor has been evaluated. Lab Data Lab results reviewed: Yes I reviewed the patient's lab results Labs: Lab Results 05/09/23 Range/Units 18:05 WBC 7.67 (4.50-11.00) K/uL RBC 5.38 H (4.00-5.20) m/uL Hgb 14.4 (12.0-16.0) gm/dL Hct 45.6 (33.0-51.0) % MCV 85 (80-100) fL MCH 27 (26-34) pg MCHC 32 (32-36) gm/dL RDW Coeff of Lucille 13.5 (11.5-15.5) % Plt Count 208 (140-440) K/uL Neut % (Auto) 65.0 (42.0-72.0) % Lymph % (Auto) 23.9 (20-44) % Grafton % (Auto) 8.7 (0.0-11.0) % Eos % (Auto) 1.0 (0.0-7.0) % Baso % (Auto) 0.4 (0.0-3.0) % Neut # (Auto) 4.98 (1.7-7.0) K/uL Lymph # (Auto) 1.83 (0.90-2.90) K/uL G[place]on # (Auto) 0.70 (0.00-0.90) K/UL Eos # (Auto) 0.08 (0.00-0.50) K/uL Baso # (Auto) 0.03 (0.00-0.30) K/uL Abs Immat Gran (auto) 0.08 (0.00-0.30) K/uL Imm/Tot Granulo (auto) 1.0 % Sodium 140 (135-149) mmol/L Potassium 3.8 (3.6-5.1) mmol/L Chloride 106 (96-114) mmol/L Carbon Dioxide 28 (20-32) mmol/L Anion Gap 6 L (7-15) mEq/L BUN 14 (7-30) mg/dL Creatinine 0.8 (0.5-1.5) mg/dL Estimated Creat Clear 75.26 Estimated GFR 88 ml/min Glucose 113 (60-115) mg/dL Calcium 9.4 (8.4-10.6) mg/dL Troponin I < 0.01 L (0.01-0.04) ng/mL ECG Data Attestation: I personally reviewed and interpreted this ECG as follows: Discharge Plan Discharge Clinical Impression: Palpitations Patient Disposition: Home, Self-Care Condition: Stable Additional Instructions: If the same thing occurs tomorrow where you have prolonged episodes of palpitations, recommend return to the ED. Otherwise, follow-up with your primary care provider once the Holter monitor results have been evaluated. Prescriptions: No Action levothyroxine 25 mcg tablet 25 mcg PO DAILY ropinirole 2 mg tablet 4 mg PO QPM gabapentin 600 mg tablet 600 mg PO DAILY Follow Up/Referrals: Kaykay Duarte APRN [Primary Care Provider] - Stand Alone Forms: [facility] Info Instructions
== END 2023-05-09 19:18 | disposition home or self-care (01) ==
PROVIDERS: Emergency Provider Family Medicine; PCP Registered Nurse General Practice
DX: R00.2 Palpitations (principal)
CPT/HCPCS: 36415; 80048; 84484; 85025; 93225; 93226; 99284; J7030

== ENCOUNTER 2023-06-30 16:01 | Emergency (ER) | payer MEDICAID, SELFPAY ==
[2023-06-30 16:05] VITALS: BP 126/76; PULSE 68; RESP 18; TEMP 36.8; O2SAT 99; BMI 41.3
--- OUTSIDE RECORDS SUMMARY | 2023-06-30 16:12 | XMS_ITS | Encounter Summary ---
Author Name Unknown Organization [place] Address [address] [place] [address] Care Team Providers Care Chimney Construction Supervisor Name Role Phone Roderick Morelos MD Unavailable [phone] Magno Wood MD Unavailable [phone] Sophie Ocasio AuD Unavailable Henny Rosales STEAM DRIER TENDER DIRECTOR SOFTWARE DEVELOPMENT Unavailable Sharee Negron RD Unavailable Kaykay Duarte NP Primary Care Provider Christiane Rodríguez MD Unavailable Jing Cadena STEAM DRIER TENDER OPERATING ROOM TECHNICIAN Unavailable [phone] Radha Lopez [facility] Unavailable Geri LozaC Unavailable [phone] Raina Patterson APRN DIRECTOR SOFTWARE DEVELOPMENT Unavailable [phone] Encounter Details Date Type Department Care Team (Late st Contact Info) Description 04/23/2023 Nabil Medical Advice [facility] [place] [address] [facility] 4th [place] [address] Kang Griffiths Social History Tobacco [...] on file documented as of this encounter Goals Goal [...] documented as of this encounter Care Teams Chimney Construction Supervisor Relationship Specialty Start Date End Date Kaykay Duarte WOOLEN SUITING SHRINKER [address] [place] [address] PCP - General 10/15/22 Roderick Morelos MD [address] [place] [id number] Cardiovascular Disease 02/03/22 Magno Wood MD 420 [facility] [address] [place], [place] [address] Otolaryngology 02/21/22 Sophie Ocasio AuD [address] [place], [place] [address] Computer Repairer Audiology 02/21/22 Henny Rosales APRN DIRECTOR SOFTWARE DEVELOPMENT [address] [place] [id number] Assigned Heart and Vascular Provider 08/09/[address] [place] [id number] Registered Dietitian Dietitian, Registered 09/02/22 Christiane Rodríguez MD [address] [facility] [address] [place], [place] [address] Otolaryngology 11/12/22 Jing Cadena APRN OPERATING ROOM TECHNICIAN 420 [facility] [address] [place], [place] [address] Clinical Nurse Specialist Anesthesiology 01/15/23 Radha Lopez, [facility] [address] [place] [address] [id number] Pharmacist Pharmacist 01/16/23 Geri Loza PA-C [address] [place] [address] [id number] Assigned Surgical Provider 04/16/23 Raina Patterson APRN DIRECTOR SOFTWARE DEVELOPMENT [address] [place] [id number] Nurse Practitioner Cardiovascular Disease 05/11/23 documented as of this encounter
--- OUTSIDE RECORDS SUMMARY | 2023-06-30 16:12 | XMS_ITS | Clinical Summary ---
Author Name Unknown Organization [place] Address [address] [place] [address] Care Team Providers Care Electric Scoop Operator Name Role Phone Roderick Morelos MD Unavailable Magno Wood MD Unavailable [phone] Sophie Ocasio AuD Unavailable [phone] Henny Rosales DISTRIBUTED GENERATION PROJECT MANAGER SOCIAL SCIENCES RESEARCH SCIENTIST Unavailable Sharee Negron RD Unavailable Kaykay Duarte NP Primary Care Provider Christiane Rodríguez MD Unavailable Jing Cadena DISTRIBUTED GENERATION PROJECT MANAGER GENERATOR SWITCHBOARD OPERATOR Unavailable Radha Lopez [facility] Unavailable [phone] Geri LozaC Unavailable [phone] Raina Patterson APRN SOCIAL SCIENCES RESEARCH SCIENTIST Unavailable Allergies Active Allergy Reactions Criticality Noted [...] dyspnea or wheezing 90 mL 1 06/19/2021 Active Additional Information Patient taking differently:2.5 mg NebulizationPRN, shortness of breath, wheezing, Reported on 11/19/2022 albuterol (PROAIR HFA/PROVENTIL HFA/VENTOLIN HFA) 108 (90 Base) MCG/ACT inhaler Inhale 2 puffs into the lungs every 6 hours as needed for shortness of breath / dyspnea or wheezing 18 g 0 10/29/2021 Active Additional Information Patient taking differently:2 puff InhalationPRN, shortness of breath, wheezing, Reported on 11/19/2022 blood glucose (ACCU-CHEK GUIDE) test strip USE 1 STRIP TO TEST THREE TIMES A DAY. 0 04/11/2022 Active levonorgestrel (MIRENA) 52 MG (20 mcg/day) IUD 1 each by Intrauterine route 0 Active atorvastatin (LIPITOR) 40 MG tablet Take 40 mg by mouth every evening 0 11/27/2022 4 Active omeprazole (PRILOSEC) [address] capsuleIndications :Gastroesophageal reflux disease with esophagitis, unspecified whether hemorrhage Take 1 capsule (40 mg) by mouth 2 times daily 180 capsule 3 01/26/2023 Active cyanocobalamin (VITAMIN B-12) [address] 1 tablet under the tongue every morning 0 Active acetaminophen (TYLENOL) 325 MG tabletIndications: Morbid obesity (H),Acute post-operative pain Take 2 tablets (650 mg) by mouth every 4 hours as needed for other (For optimal non-opioid multimodal pain management to improve pain control and physical function.) 100 tablet 0 03/19/2023 Active blood glucose monitoring (NO BRAND SPECIFIED) meter device kitIndications:S/P laparoscopic sleeve gastrectomy,Class 3 severe obesity with serious comorbidity and body mass index (BMI) of 45.0 to 49.9 in adult, unspecified obesity type (H),Type 2 diabetes mellitus without complication, without long-term current use of insulin (H) Use to test blood sugar 1 times daily or as directed. 1 kit 0 03/24/2023 Active blood glucose (NO BRAND SPECIFIED) lancets standardIndication s:S/P laparoscopic sleeve gastrectomy,Class 3 severe obesity with serious comorbidity and body mass index (BMI) of 45.0 to 49.9 in adult, unspecified obesity type (H),Type 2 diabetes mellitus without complication, without long-term current use of insulin (H) Use to test blood sugar 1 times daily or as directed. 100 each 1 03/24/2023 Active blood glucose (CONTOUR NEXT TEST) test [...] daily or as directed. 100 strip 3 03/24/2023 Active ursodiol (ACTIGALL) 300 MG capsuleIndications :S/P laparoscopic sleeve gastrectomy Take 1 capsule (300 mg) by mouth 2 times daily 60 capsule 5 04/23/2023 Active Cyanocobalamin (B-12) 500 MCG SUBLIndications:S/ P laparoscopic sleeve gastrectomy Place 1 tablet under the tongue daily 30 tablet 11 04/23/2023 Active Active Problems Problem Noted Date Diagnosed Date Morbid obesity 03/18/2023 Hyperglycemia 10/30/2021 Acute bronchitis, unspecified organism 2 Asthma with acute exacerbati on, unspecified asthma severity, unspecified whether persistent 06/19/2021 S/P laparoscopic sleeve gastrectomy 08/09/2020 08/15/2022 Overview: Laparoscopic vertical sleeve gastrectomy, intraoperative EGD No elective surgery for 30 days starting 08/09/20 Last Assessment & Plan: S/p gastric sleeve 08/09/2020 at [facility]. No post op complications. 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 Gastric sleeve was completed 08/09/[address] [facility] [address] Barillas. Starting weight 338lb, BMI 56.25. She felt that instantly did not see expected weight loss results. Per chart review had lost 8lbs by 3 months post op and has followed up with [facility] since. She has lost 38lbs since surgery, [...] Department Care Team Description 04/23/2023 1:30 PM STRATEGIC PLANNING ANALYST Virtual Visit [facility] [address] [address] Nutritional counseling (Primary Dx); S/P laparoscopic sleeve gastrectomy; Type 2 diabetes mellitus without complication, without long-term current use of insulin (H); Obesity 04/23/2023 12:00 PM STRATEGIC PLANNING ANALYST Virtual Visit [facility] [address] [address] Geri Loza PA-C S/P laparoscopic sleeve gastrectomy 04/23/2023 MyC Medical Advice [facility] [address] [phone] [facility] 04/14/2023 MyC Medical Advice [facility] [address] [phone] Tanya Larsen RN 04/06/2023 MyC Medical Advice [facility] [address] [phone] Tanya Larsen RN 04/02/2023 MyC Medical Advice [facility] [address] [phone] Tanya Larsen RN 03/31/2023 MyC Medical Advice [facility] [address] [phone] Tanya Larsen, SKIP from Last 3 Months Immunizations Name Administration [...] Comments Blood Pressure 124/78 03/24/2023 10:20 AM STRATEGIC PLANNING ANALYST Pulse 70 03/24/2023 10:20 AM STRATEGIC PLANNING ANALYST Temperature 36.8 ??C (98.2 ??F) 03/24/2023 10:[address] Respiratory Rate 16 03/24/2023 10:20 AM STRATEGIC PLANNING ANALYST Oxygen Saturation 99% 03/24/2023 10:20 AM STRATEGIC PLANNING ANALYST Inhaled Oxygen Concentration - - Weight 120.7 kg (266 lb) 04/23/2023 11:55 AM STRATEGIC PLANNING ANALYST Height 167.6 cm (5' 6) 04/23/2023 11:55 AM STRATEGIC PLANNING ANALYST Body Mass Index 42.93 04/23/2023 11:55 AM STRATEGIC PLANNING ANALYST Plan of Treatment Health Maintenance Due Date Last Done Comments ADVANCE CARE PLANNING 1968 ANNUAL REVIEW OF HM ORDERS 1968 ASTHMA CONTROL TEST 1968 CT COLONOGRAPHY 1968 DIABETIC FOOT EXAM 1968 EYE EXAM 1968 FIT 1968 FLEX SIG 1968 MICROALBUMIN 1968 URINE DRUG SCREEN 1968 sDNA (Cologuard) 1968 COLONOSCOPY 1978 COLORECTAL CANCER SCREENING 1978 HIV SCREENING 10/02/1983 HEPATITIS C SCREENING 1986 HEPATITIS B IMMUNIZATION (1 of 3 - 19+ 3-dose series) 10/02/1987 Pneumococcal Vaccine: Pediatrics (0 to 5 Years) [...] IS SCHEDULED No Luis A Escobedo MD Additional Health Concerns Problem Noted Date Diagnosed Date BRIAN PATHWAY SURGERY IS SCHEDULED 10/15/2022 Advance Directives For more information, please contact: [phone] Latest Code Status on File Code Status [...] 12:01 PM 05/01/2018 3:45 AM Care Teams Electric Scoop Operator Relationship Specialty [place] [address] [place] [address] PCP - General 10/15/22 Roderick Morelos MD [address] [place], [place] [address] Cardiovascular Disease 02/03/22 Magno Wood MD [address] [place] [address] [address] [place] [address] Otolaryngology 02/21/22 Sophie Ocasio AuD [address] [place] [address] Hand Cigar Maker Audiology 02/21/22 Henny Rosales APRN SOCIAL SCIENCES RESEARCH SCIENTIST [address] [place] [address] Assigned Heart and Vascular Provider 08/09/[address] [place] [address] Registered Dietitian Dietitian, Registered 09/02/22 Christiane Rodríguez MD [address] [place] [address] [address] [place] [address] Otolaryngology 11/12/22 Jing Cadena APRN GENERATOR SWITCHBOARD OPERATOR [address] [place] [address] [address] [place] [address] Clinical Nurse Specialist Anesthesiology 01/15/23 Radha Lopez, [facility] 9 [place] [address] Pharmacist Pharmacist 01/16/23 Geri Loza PA-C 9 [place] [address] Assigned Surgical Provider 04/16/23 Raina Patterson APRN SOCIAL SCIENCES RESEARCH SCIENTIST [address] [place] [id number] Nurse Practitioner Cardiovascular Disease 05/11/23
--- OUTSIDE RECORDS SUMMARY | 2023-06-30 16:12 | XMS_ITS | Encounter Summary ---
Author Name Unknown Organization [place] Address [address] [place] [address] Care Team Providers Care Harness Tier Name Role Phone Roderick Morelos MD Unavailable Magno Wood MD Unavailable [phone] Sophie Ocasio AuD Unavailable Henny Rosales CASH REGISTER SERVICER SALES SPECIAL AGENT Unavailable Sharee Negron RD Unavailable Kaykay Duarte NP Primary Care Provider [phone] Christiane Rodríguez MD Unavailable Jing Cadena CASH REGISTER SERVICER BODY MAKE UP ARTIST Unavailable Radha Lopez [facility] Unavailable [phone] Geri Loza PA-C Unavailable [phone] Reason for Visit * Reason Comments RECHECK Encounter Details Date Type Department Care Team (Latest Contact Info) Description 04/23/2023 12:00 PM TECHNOLOGY ASSISTANT Virtual Visit [facility] [address] [place] [address] Geri Loza PA-C [address] [place] [address] S/P laparoscopic sleeve gastrectomy Social History [...] 120.7 kg (266 lb) 04/23/2023 11:55 AM TECHNOLOGY ASSISTANT Height 167.6 cm (5' 6) 04/23/2023 11:55 AM TECHNOLOGY ASSISTANT Body Mass Index 42.93 04/23/2023 11:55 AM TECHNOLOGY ASSISTANT documented in this encounter Patient Instructions * Patient Instructions* Geri Loza PA-C - 04/23/2023 12:00 PM TECHNOLOGY ASSISTANT Plan: 1. RD visit today. - Start [...] 12. 3 months post op labs ordered NOLOGY ASSISTANT documented in this encounter Progress Notes * Geri Loza PA-C - 04/23/2023 12:00 PM CST Virtual Visit Details Type of service: Video Visit Video Start Time: 12:04PM Video End Time: 12:30PM Originating Location (pt. Location): Home Distant Location (provider location): Off-site Platform used for Video Visit: [facility] Postoperative bariatric surgery visit. Patient underwent sleeve [...] post op labs ordered Geri Loza PA-C NOLOGY ASSISTANT documented in this encounter Nursing Notes * Ángela Barton - 04/23/2023 12:00 PM CST Is the patient currently in the state of [place]? YES Visit mode:VIDEO If the visit is dropped, the patient can be reconnected by: VIDEO VISIT: Text to cell phone: Telephone Information: Will anyone else be joining the visit? NO (If patient encounters technical issues they should call [phone] :[phone]) How would you like to obtain your AVS? MyChart Are changes needed to the allergy or medication list? No Reason for visit: RECHECK Ángela Barton VVF NOLOGY ASSISTANT documented in this encounter Plan of Treatment [...] documented as of this encounter Care Teams Harness Tier Relationship Specialty [place] [address] [place] [address] PCP - General 10/15/22 Roderick Morelos MD [address] [place] [id number] Cardiovascular Disease 02/03/22 Magno Wood MD [address] [place] [address] Otolaryngology 02/21/22 Sophie Ocasio AuD [address] [place] [id number] Creative Recruiter Audiology 02/21/22 Henny Rosales APRN SALES SPECIAL AGENT [address] [place] [phone] Assigned Heart and Vascular Provider 08/09/[address] [place] [address] Registered Dietitian Dietitian, Registered 09/02/22 Christiane Rodríguez MD 420 [facility] [address] [place], [place] [phone] Otolaryngology 11/12/22 Jing Cadena, CASH REGISTER SERVICER BODY MAKE UP ARTIST 420 [facility] [address] [place], [place] [address] Clinical Nurse Specialist Anesthesiology 01/15/23 Radha Lopez, [facility] [address] [place] [phone] Pharmacist Pharmacist 01/16/23 Geri Loza PA-C [address] [place] [address] Assigned Surgical Provider 04/16/23 documented as of this encounter
--- OUTSIDE RECORDS SUMMARY | 2023-06-30 16:12 | XMS_ITS | Clinical Summary ---
Author Name Unknown Organization [facility] Address [place], [place] [address] Care Team Providers Care Amf Mechanic Name Role Phone Brandan Burleson MD Unavailable [phone] Pcp, No Primary Care Provider Unavailabl e [...] solution (FLONASE)Indications :Purulent postnasal drainage Inhale 1 Hollister into both nostrils 2 times daily. 1 [...] TIMES A DAY IF NEEDED 18 g 06/12/2016 Active carisoprodol (SOMA) 350 mg tabletIndications:Ch ronic bilateral low back pain without sciatica Take 1 tablet by mouth 3 times daily. 60 tablet 04/03/2017 Active ibuprofen (ADVIL; MOTRIN) 600 mg tabletIndications:Ch ronic bilateral low back pain without sciatica Take 1 tablet by mouth every 6 hours if needed. 90 tablet 04/03/2017 Active pramipexole (MIRAPEX) 0.5 mg tabletIndications:Re stless leg syndrome, familial Take 1-2 tablets by mouth 2 times daily. 120 tablet 04/09/2017 Active levothyroxine (SYNTHROID) 175 mcg tabletIndications:Hy pothyroidism, unspecified type Take 1 tablet by mouth once daily. 30 tablet 06/25/2017 Active famciclovir (FAMVIR) 500 mg tablet Take 1 tablet by mouth 3 times daily for 7 days 21 tablet 03/29/2019 Active ondansetron (ZOFRAN ODT) 4 mg disintegrating tabletIndications:Na usea and vomiting, unspecified vomiting type Place 1 Tablet (4 mg) on the tongue two times daily. 10 Tablet 06/21/2022 Active Active Problems Problem Noted Date Diagnosed Date Moderate persistent asthma with acute exacerbati on 06/12/2016 Panic attacks 10/16/2014 Thyroid activity decreased 10/02/2014 Restless leg syndrome, familial 05/29/2014 Other and unspecified hyperlipidemia 08/14/2009 GERD (gastroesophageal reflux disease) 0 Irregular heart beat 08/14/2009 Unspecified examination 08/14/2009 Overview: Last pap 09/2007 Last Mammo 09/2008 Chronic low back pain Encounters Date Type Department Care Team Description 05/12/2023 Orders Only [facility] [address] [place] [address] Paz Frye 1 scan: (1-Ord) Holter Report ([id number]) 05/09/2023 2:14 PM CHANGE AGENT - 05/09/2023 11:59 PM CHANGE AGENT Hospital Encounter [facility] [address] [place] [address] Tete Zuñiga from Last 3 Months Immunizations Name Administration Dates Next Due AMB [...] age 21-65 05/21/2018 6 [facility] 05/22/2011 Zoster (shingles) series for age 50+ (1 of 2) 2018 Lipids for age 45-75 02/10/2021 02/11/2016, 06/29/19 15 COVID-19 vaccine series ( season) 2022 11/28/2020, 06/19/2020 Influenza for age 50-64 11/22/2023 12/22/19 16, 01/01/2015, 01/16/2014, Additional history exists Pneumococcal series for age 6-64 Aged Out No longer eligible based on patient's age to complete this topic Medical Devices Implanted Type Area K [employer] Professional Device Identifier Shelf Expiration Date Model / Serial / Lot Prosth Torq [id number] - [id number] Implanted:Qty: 1 on 05/20/[address] [facility] Ent Implants Right: Ear [employer] [id number] / / Procedures Procedure Name Priority Date/Time Associated Diagnosis Comments HOLTER MONITOR 24 HOURS Routine 05/13/2023 12:00 AM CHANGE AGENT Palpitations LIPID PANEL W REFLEX MEASURED LDL Routine 02/11/2016 2:52 PM CHANGE AGENT Hyperlipidemia, unspecified hyperlipidemia type XR MAMMO RAVI BILAT SCREEN Routine 01/30/2016 9:52 AM CHANGE AGENT Visit for screening mammogram from Last 3 Months or Most Recently Relevant to Health Maintenance Results * HOLTER MONITOR 24 HOURS (05/13/2023 12:00 AM CHANGE AGENT) Tete Zuñiga [facility] ORD * (ABNORMAL) LIPID PANEL W REFLEX MEASURED LDL (02/11/2016 2:52 PM CHANGE AGENT) CHOLESTEROL,TOTAL 271(H) 100 - 199 mg/dL 02/11/2016 8:04 PM CHANGE AGENT [facility] TRIGLYCERIDES 178(H) <150 mg/dL 02/11/2016 8:04 PM CHANGE AGENT [facility] HDL CHOLESTEROL 49 >40 mg/dL 6 8:04 PM CHANGE AGENT [facility] NON-HDL CHOLESTEROL 222(H) <145 mg/dl 02/11/2016 8:04 PM CHANGE AGENT [facility] CHOL/HDL RATIO 5.53(H) <4.50 02/11/2016 8:04 PM [facility] LDL CHOLESTEROL 186(H) <=130 mg/dL 02/11/2016 8:04 PM CHANGE AGENT [facility] PATIENT STATUS NON-FASTI NG 02/11/2016 8:04 PM CHANGE AGENT [facility] Blood BLOOD SPECIMEN / Unknown Venipuncture / Unknown 02/11/2016 2:52 PM CHANGE AGENT 02/11/2016 2:52 PM CHANGE AGENT [facility] [address] [place] [address], [place] * XR MAMMO RAVI SCREEN BILAT (01/30/2016 9:52 AM CHANGE AGENT) Anatomical Region Laterality Modality BREASTS, Breast Left, Breast Right Bilateral Mammography Impressions 01/30/2016 11:17 AM CHANGE AGENT ??There is no radiographic evidence for malignancy. ??Recommend annual mammograms. A lay language report of this examination will be provided to the patient. MAMMOGRAM ASSESSMENT: ??ACR 2 Benign Narrative 01/30/2016 11:17 AM CHANGE AGENT XR MAMMO RAVI SCREEN BILAT [[id number]] CLINICAL HISTORY: ??This is an asymptomatic 45 y.o. patient. INDICATION FOR EXAM: Mammogram Screening. TECHNIQUE: CC & MLO views were obtained. ??This digital study was evaluated with the assistance of Computer-Aided Detection. Breast Tomosynthesis was used in interpretation. COMPARISON FILMS: Yes 02/10/15 [facility] 01/18/14 [facility] FINDINGS: ??Mammographically, the breast tissue has scattered fibroglandular densities. ??No suspicious masses or microcalcifications. ?? Benign appearing calcifications within both breasts. Brandan Burleson MD MAMMO from Last 3 Months or Most Recently Relevant to Health Maintenance Advance Directives * Full Code (Latest Code Status on File) Date Activated Date Inactivated Comments 05/20/2005 7:01 AM 05/20/2005 4:28 PM Care Teams Amf Mechanic Relationship Specialty Start Date End Date Pcp, No . PCP - General 03/24/20 Brandan Burleson MD Gynecology Obstetrics and Gynecology 09/19/15
--- OUTSIDE RECORDS SUMMARY | 2023-06-30 16:12 | XMS_ITS | Referral Summary ---
Author Name Unknown Organization [facility] Address [address] [place] [address] Care Team Providers Care Veneer Sample Maker Name Role Phone Roderick Morelos MD Unavailable [phone] Magno Wood MD Unavailable [phone] Sophie Ocasio AuD Unavailable Henny Rosales DRILLING SUPERINTENDENT CALL WORKER Unavailable Sharee Negron RD Unavailable Kaykay Duarte NP Primary Care Provider Christiane Rodríguez MD Unavailable [phone] Jing Cadena DRILLING SUPERINTENDENT TELEVISION REPAIRMAN Unavailable Radha Lopez [facility] Unavailable [phone] Geri Loza PA-C Unavailable Raina Patterson APRN CALL WORKER Unavailable [phone] Encounters Date Type Department Care Team Description 04/23/2023 [facility] Medical Advice [facility] [address] [address] Kang Griffiths 04/23/2023 12:00 PM CHUTE BOSS Virtual Visit [facility] [address] [address] Geri Loza PA-C S/P laparoscopic sleeve gastrectomy 04/23/2023 1:30 PM CHUTE BOSS Virtual Visit [facility] [address] [phone] Nutritional counseling (Primary Dx); S/P laparoscopic sleeve gastrectomy; Type 2 diabetes mellitus without complication, without long-term current use of insulin (H); Obesity 04/14/2023 [facility] Medical Advice [facility] [address] [phone] Tanya Larsen, SKIP 04/06/2023 [facility] Medical Advice [facility] [address] [phone] Tanya Larsen, SKIP 04/02/2023 [facility] Medical Advice [facility] [address] [phone] Tanya Larsen RN 03/31/2023 [facility] Medical Advice [facility] [address] [phone] Tanya Larsen, SKIP from Last 3 Months Allergies Active Allergy [...] & Plan: S/p gastric sleeve 08/09/2020 at [facility]. No post op complications. Weight prior to [...] loss. Gastric sleeve was completed 08/09/[address] [facility] [address] Barillas. Starting weight 338lb, BMI 56.25. She felt that instantly did not see expected weight loss results. Per chart review had lost 8lbs by 3 months post op and has followed up with [facility] since. She has lost 38lbs since surgery, [...] Comments Blood Pressure 124/78 03/24/2023 10:20 AM CHUTE BOSS Pulse 70 03/24/2023 10:20 AM CHUTE BOSS Temperature 36.8 ??C (98.2 ??F) 03/24/2023 10:[address] Respiratory Rate 16 03/24/2023 10:20 AM CHUTE BOSS Oxygen Saturation 99% 03/24/2023 10:20 AM CHUTE BOSS Inhaled Oxygen Concentration - - Weight 120.7 kg (266 lb) 04/23/2023 11:55 AM CHUTE BOSS Height 167.6 cm (5' 6) 04/23/2023 11:55 AM CHUTE BOSS Body Mass Index 42.93 04/23/2023 11:55 AM CHUTE BOSS Plan of Treatment Not on file Goals Goal Patient Goal Type Associated Problems Recent Progress Patient-Stated? Author BRIAN PATHWAY SURGERY IS SCHEDULED Care Plan BIRAN PATHWAY SURGERY IS SCHEDULED No Luis A Escobedo MD Additional Health Concerns Problem Noted Date Diagnosed Date BRIAN PATHWAY SURGERY IS SCHEDULED 10/15/2022 Advance Directives For more information, please contact: [phone] Latest Code Status on File Code Status [...] 12:01 PM 05/01/2018 3:45 AM Care Teams Veneer Sample Maker Relationship Specialty [place] [address] [facility] [place] [address] PCP - General 10/15/22 Roderick Morelos MD [address] [place] [id number] Cardiovascular Disease 02/03/22 Magno Wood MD [address] [facility] [address] [place], [place] 7[address] Otolaryngology 02/21/22 Sophie Ocasio AuD [address] [place] [address] 483195 Patternmaker Pressure Cast Audiology 02/21/22 Henny Rosales APRN CALL WORKER [address] [place] [address] Assigned Heart and Vascular Provider 08/09/[address] [place] [address] [phone] Registered Dietitian Dietitian, Registered 09/02/22 Christiane Rodríguez MD [address] [place] [address] 042305 Otolaryngology 11/12/22 Jing Cadena APRN TELEVISION REPAIRMAN [address] [place] [address] [address] [place], [place] 3876[address] Clinical Nurse Specialist Anesthesiology 01/15/23 Radha Lopez [facility] [address] [place] [address] [phone] Pharmacist Pharmacist 01/16/23 Geri Loza PA-C [address] [place] [address] 490025 Assigned Surgical Provider 04/16/23 Raina Patterson, DRILLING SUPERINTENDENT CALL WORKER [address] [facility] [address] [place] [address] Nurse Practitioner Cardiovascular Disease 05/11/23
--- OUTSIDE RECORDS SUMMARY | 2023-06-30 16:12 | XMS_ITS | Encounter Summary ---
Author Name Unknown Organization [facility] Address [address] [place] [address] Care Team Providers Care Tactical Air Defense Controller Name Role Phone Roderick Morelos MD Unavailable [phone] Magno Wood MD Unavailable [phone] Sophie Ocasio AuD Unavailable [phone] Henny Rosales HELP DESK SUPPORT SPECIALIST DIRECTOR HOUSEKEEPING Unavailable Sharee Negron RD Unavailable Kaykay Duarte CHUTE PULLER Primary Care Provider Christiane Rodríguez MD Unavailable [phone] Jing Cadena HELP DESK SUPPORT SPECIALIST OYSTER FARMER Unavailable Radha Lopez [facility] Unavailable Geri Loza PA-C Unavailable Reason for Visit * Reason Comments RECHECK Encounter Details Date Type Department Care Team (Latest Contact Info) Description 04/23/2023 1:30 PM [place] FLORIST Virtual Visit [facility] [address] [place] [address] Sharee Negron, RD [address] [place] [address] Nutritional counseling (Primary Dx); S/P laparoscopic [...] Sharee Negron RD - 04/23/2023 1:30 PM WEDDING FLORIST Goals: 1) Follow diet advancement schedule below. 2) Aim for 60+ gm protein/day. 3) Consume 48-64+ oz fluids daily- between meals 4) Eat slowly (>20 min/meal), chewing well to smooth consistency once on the bariatric soft diet. 5) Limit portions to ~1/4 to ~1/2 c per meal or less plus 1-2 protein shakes/day as needed 6) Take vitamins/minerals as recommended - [place] 2 per day - Add B12 - Add Vitamin D - Add chewable calcium citrate as needed (want 2778-1970 mg/day between diet and supplements) Post-op Diet Advancement Schedule: Regular Diet (stage 5): START May 13 Post-op Diet Handouts: Diet Guidelines after Weight-loss Surgery [email or web address] Your Stage 4 Diet: Soft Foods [email or web address] Your Stage 5 Diet: Regular Foods [email or web address] Supplements after Sleeve Gastrectomy, Gastric Bypass or Single Anastomosis Duodenal Switch [email or web address] Keeping Track of Fluids [email or web address] Follow-Up: 06/23/22 at 1:00 pm Sharee Clement), SIVA, RD, LD Clinic #: [phone] ING FLORIST documented in this encounter Progress Notes * Sharee Negron RD - 04/23/2023 1:30 PM CST Video-Visit Details Type of service: Video Visit Video Start Time: 1:27 pm Video End Time: 1:40 pm Originating Location (pt. 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 Activity: limited by pain (needs hip replacement [...] needed 6) Take vitamins/minerals as recommended - [place] 2 per day - Add B12 - Add Vitamin D - Add chewable calcium citrate as needed (want 6642-0314 mg/day between diet and supplements) Post-op Diet Advancement Schedule: Regular Diet (stage 5): START May 13 Post-op Diet Handouts: Diet Guidelines after Weight-loss Surgery [email or web address] Your Stage 4 Diet: Soft Foods [email or web address] Your Stage 5 Diet: Regular Foods [email or web address] Supplements after Sleeve Gastrectomy, Gastric Bypass or Single Anastomosis Duodenal Switch [email or web address] Keeping Track of Fluids [email or web address] Follow-Up: 06/23/22 at 1:00 pm Time spent with patient: 13 minutes. SIVA Peacock, RD, LD ING FLORIST documented in this encounter Nursing Notes * Ángela Barton - 04/23/2023 1:30 PM CST Is the patient currently in the state of [place]? YES Visit mode:VIDEO If the visit is dropped, the patient can be reconnected by: VIDEO VISIT: Text to cell phone: Telephone Information: Will anyone else be joining the visit? NO (If patient encounters technical issues they should call [phone] :[phone]) How would you like to obtain your AVS? MyChart Are changes needed to the allergy or medication list? N/A Reason for visit: RECHECK Ángela Barton VVF ING FLORIST documented in this encounter Plan of Treatment Not on file documented as of this encounter Goals Goal Patient Goal Type Associated Problems Recent Progress Patient-Stated? Author BRIAN PATHWAY SURGERY IS SCHEDULED Care Plan BRIAN PATHWAY SURGERY IS SCHEDULED No Fanny, Luis A Giovany, MD documented as of this encounter Visit Diagnoses Diagnosis Nutritional counseling- Primary S/P laparoscopic sleeve gastrectomy Type 2 diabetes mellitus without complication, without long-term current use of insulin (H) Obesity Obesity, unspecified documented in this encounter Additional Health Concerns Problem Noted Date Diagnosed Date BRIAN PATHWAY SURGERY IS SCHEDULED 10/15/2022 documented as of this encounter Care Teams Tactical Air Defense Controller Relationship Specialty [place] [address] [place] [address] PCP - General 10/15/22 Roderick Morelos MD [address] [place] [address] Cardiovascular Disease 02/03/22 Magno Wood MD [address] [place] [address] 154075 Otolaryngology 02/21/22 Sophie Ocasio AuD [address] [place] [address]115 [place]ak Worker Audiology 02/21/22 Henny Rosales, HELP DESK SUPPORT SPECIALIST DIRECTOR HOUSEKEEPING [address] [place] [phone] Assigned Heart and Vascular Provider 08/09/[address] [place] [address] [phone] Registered Dietitian Dietitian, Registered 09/02/22 Christiane Rodríguez MD [address] [place] [address] [phone] Otolaryngology 11/12/22 Jing Cadena APRN OYSTER FARMER [address] [place] [address] 284805 Clinical Nurse Specialist Anesthesiology 01/15/23 Radha Lopez, [facility] [address] [place] [address] Pharmacist Pharmacist 01/16/23 Geri Loza PA-C [address] [place] [address] 999365 Assigned Surgical Provider 04/16/23 documented as of this encounter
--- OUTSIDE RECORDS SUMMARY | 2023-06-30 16:13 | XMS_ITS | Encounter Summary ---
Author Name Unknown Organization [facility] Address [address] [place] [address] Care Team Providers Care Telemetry Registered Nurse Name Role Phone Roderick Morelos MD Unavailable Magno Wood MD Unavailable [phone] Sophie Ocasio AuD Unavailable [phone] Henny Rosales AIR CONDITIONING INSTALLER OUTBOUND SALES REPRESENTATIVE Unavailable Sharee Negron RD Unavailable Kaykay Duarte SALES COMMUNICATIONS MANAGER Primary Care Provider Christiane Rodríguez MD Unavailable Jing Cadena AIR CONDITIONING INSTALLER BULL BUCKER Unavailable [phone] Radha Lopez [facility] Unavailable Luis A Escobedo MD Unavailable [phone] Encounter Details Date Type Department Care Team (Late st Contact Info) Description 02/09/2023 Telephone [facility] [place] [address] [facility] [address] [place] [address] Radha Dominguez, RN [address] [facility] [address] [place] [address] Social History Tobacco Use Types [...] * Telephone Encounter - Shari Esteban - 02/09/2023 2:13 PM CST General Call Contacts Type Contact Phone/Fax 02/09/2023 02:13 PM FIRE CONTROL SYSTEM INSTALLER Phone (Incoming) Billie Connolly (Self) [phone] (M) Reason for Call: Hotel recommendations What are your questions or concerns: pt would like to know if the hosp recommends any hotel or offers discounts [facility] or would you prefer to receive a phone call?: Patient would prefer a phone call Okay to leave a detailed message?: Yes at Cell number on file: Telephone Information: CONTROL SYSTEM INSTALLER documented in this encounter Plan of Treatment [...] documented as of this encounter Care Teams Telemetry Registered Nurse Relationship Specialty Start Date End Date Kaykay Duarte SALES COMMUNICATIONS MANAGER [address] [place] [address] PCP - General 10/15/22 Roderick Morelos MD [address] [place] [address] Cardiovascular Disease 02/03/22 Mango Wood MD 420 [facility] 396 [place], [place] 32[address] Otolaryngology 02/21/22 Sophie Ocasio AuD [address] [place], [place] 1898[address] Home Improvement Advisor Audiology 02/21/22 Henny Rosales, AIR CONDITIONING INSTALLER OUTBOUND SALES REPRESENTATIVE [address] [place] [address] Assigned Heart and Vascular Provider 08/09/[address] [place] [address] [phone] Registered Dietitian Dietitian, Registered 09/02/22 Christiane Rodríguez MD [address] [facility] [address] [place], [place] 1777[address] Otolaryngology 11/12/22 Jing Cadena, AIR CONDITIONING INSTALLER BULL BUCKER [address] [facility] [address] [place], [place] [address] Clinical Nurse Specialist Anesthesiology 01/15/23 Radha Lopez [facility] [address] [place], [place] 405125 Pharmacist Pharmacist 01/16/23 Luis A Escobedo MD [address] [facility] [address] [place] [address] Assigned Surgical Provider 02/07/23 04/15/23 documented as of this encounter
--- OUTSIDE RECORDS SUMMARY | 2023-06-30 16:13 | XMS_ITS | Encounter Summary ---
Author Name Unknown Organization [facility] Address [address] [place] [address] Care Team Providers Care Loss Prevention Consultant Name Role Phone oRderick Morelos MD Unavailable [phone] Magno Wood MD Unavailable [phone] Sophie Ocsaio AuD Unavailable [phone] Henny Rosales RN INTERNAL MEDICINE EXECUTIVE OFFICER Unavailable [phone] Unavailable Kaykay Duarte BOX FOLDING MACHINE OPERATOR Primary Care Provider Christiane Rodríguez MD Unavailable [phone] Jing Cadena RN INTERNAL MEDICINE ADJUNCT LATIN PROFESSOR Unavailable [phone] Radha Lopez [facility] Unavailable [phone] Luis A Escobedo MD Unavailable [phone] Geri LozaC Unavailable [phone] Raina Patterson RN INTERNAL MEDICINE EXECUTIVE OFFICER Unavailable [phone] Encounter Details Date Type Department Care Team (Late st Contact Info) Description 03/31/2023 [facility] Medical Advice [facility] [address] 4th [place] [address] Tanya Larsen RN Social History [...] documented as of this encounter Care Teams Loss Prevention Consultant Relationship Specialty Start Date End Date Kaykay Duarte BOX FOLDING MACHINE OPERATOR [address] [place] [address] PCP - General 10/15/22 Roderick Morelos MD [address] [place] [address] Cardiovascular Disease 02/03/22 Magno Wood MD [address] [place] [address] [phone] Otolaryngology 02/21/22 Sophie Ocasio AuD [address] [place], [place] 332635 Epic Application Coordinator Audiology 02/21/22 Henny Rosales APRN EXECUTIVE OFFICER [address] [place] [phone] Assigned Heart and Vascular Provider 08/09/[address] [place] [address] [phone] Registered Dietitian Dietitian, Registered 09/02/22 Christiane Rodríguez MD 420 [facility] 396 [place], [place] [phone] Otolaryngology 11/12/22 Jing Cadena APRN ADJUNCT LATIN PROFESSOR [address] [place] [address] 450 [place], [place] 7769[address] Clinical Nurse Specialist Anesthesiology 01/15/23 Radha Lopez, [facility] [address] [place] [address] 437155 Pharmacist Pharmacist 01/16/23 Luis A Escobedo MD [address] [place] [address] 195 [place], [place] 478[address] Assigned Surgical Provider 02/07/23 04/15/23 Geri Loza PA-C [address] [place] [address] [phone] Assigned Surgical Provider 04/16/23 Raina Patterson APRN EXECUTIVE OFFICER [address] [place] [phone] Nurse Practitioner Cardiovascular Disease 05/11/23 documented as of this encounter
--- OUTSIDE RECORDS SUMMARY | 2023-06-30 16:13 | XMS_ITS | Encounter Summary ---
Author Name Unknown Organization [facility] Address [address] [place] [address] Care Team Providers Care Rn Lactation Name Role Phone Roderick Morelos MD Unavailable [phone] Magno Wood MD Unavailable [phone] Sophie Ocasio AuD Unavailable [phone] Henny Rosales QUALITY SYSTEM MANAGER PHOTO TECHNICIAN Unavailable [phone] Unavailable Kaykay Duarte QUALITY CONTROL INSPECTOR Primary Care Provider Christiane Rodríguez MD Unavailable [phone] Jing Cadena QUALITY SYSTEM MANAGER TARIFF EXPERT Unavailable Radha Lopez [facility] Unavailable [phone] Luis A Escobedo MD Unavailable [phone] Geri LozaC Unavailable [phone] Raina Patterson QUALITY SYSTEM MANAGER PHOTO TECHNICIAN Unavailable [phone] Encounter Details Date Type Department Care Team (Late st Contact Info) Description 04/14/2023 [facility] [place] [facility] [address] 4th [place] [address] Tanya Larsen RN Social History [...] documented as of this encounter Care Teams Rn Lactation Relationship Specialty Start Date End Date Kaykay Duarte QUALITY CONTROL INSPECTOR [address] [place] [address] PCP - General 10/15/22 Roderick Morelos MD [address] [place] [address] Cardiovascular Disease 02/03/22 Magno Wood MD [address] [place] [address] [phone] Otolaryngology 02/21/22 Sophie Ocasio AuD 909 [place], [place] [address]15 Livestock Trucker Audiology 02/21/22 Henny Rosales APRN PHOTO TECHNICIAN [address] [place] [id number] Assigned Heart and Vascular Provider 08/09/[address] [place] [address] [id number] Registered Dietitian Dietitian, Registered 09/02/22 Christiane Rodríguez MD 420 [facility] 396 [place], [place] 184965 Otolaryngology 11/12/22 Jing Cadena APRN TARIFF EXPERT [address] [place] [address] 450 [place], [place] 639405 Clinical Nurse Specialist Anesthesiology 01/15/23 Radha Lopez, [facility] [address] [place] [address] 223805 Pharmacist Pharmacist 01/16/23 Luis A Escobedo MD [address] [place] [address] 195 [place], [place] 548665 Assigned Surgical Provider 02/07/23 04/15/23 Geri Loza PA-C [address] [place] [address] 413235 Assigned Surgical Provider 04/16/23 Raina Patterson APRN PHOTO TECHNICIAN [address] [place] 737915 Nurse Practitioner Cardiovascular Disease 05/11/23 documented as of this encounter
--- OUTSIDE RECORDS SUMMARY | 2023-06-30 16:13 | XMS_ITS | Encounter Summary ---
Author Name Unknown Organization [place] Address [address] [place] [address] Care Team Providers Care Video Engineer Name Role Phone Roderick Morelos MD Unavailable [phone] Magno Wood MD Unavailable [phone] Sophie Ocasio AuD Unavailable [phone] Henny Rosales ENCHILADA MAKER CONTROL ELECTRICIAN Unavailable Sharee Negron RD Unavailable Kaykay Duarte SOCIAL SERVICES DESIGNEE Primary Care Provider Christiane Rodríguez MD Unavailable [phone] Jing Cadena ENCHILADA MAKER GIFT BASKET PACKER Unavailable Radha Lopez [facility] Unavailable Luis A Escobedo MD Unavailable [phone] Reason for Visit * Reason Comments Follow Up 1 wk postop Encounter Details Date Type Department Care Team (Late st Contact Info) Description 03/24/2023 10:30 AM MAIL LIST LIBRARIAN Office Visit [facility] [address] 4th [place] [address] Alia Flowers NP [address] [place] [address] S/P laparoscopic sleeve gastrectomy (Primary Dx); [...] Comments Blood Pressure 124/78 03/24/2023 10:20 AM MAIL LIST LIBRARIAN Pulse 70 03/24/2023 10:20 AM MAIL LIST LIBRARIAN Temperature 36.8 ??C (98.2 ??F) 03/24/2023 1 0:20 AM MAIL LIST LIBRARIAN Respiratory Rate 16 03/24/2023 10:2 0 AM MAIL LIST LIBRARIAN Oxygen Saturation 99% 03/24/2023 10: 20 AM MAIL LIST LIBRARIAN Inhaled Oxygen Concentration - - Weight 130.5 kg (287 lb 11.2 oz) 2023 10:20 AM MAIL LIST LIBRARIAN Height 165.1 cm (5' 5) 03/24/2023 10:2 0 AM MAIL LIST LIBRARIAN Body Mass Index 47.88 03/24/2023 10:20 AM MAIL LIST LIBRARIAN documented in this encounter Patient Instructions * Patient Instructions* Alia Flowers NP - 03/24/2023 10:30 AM MAIL LIST LIBRARIAN Thank you for allowing us the privilege [...] review of our visit. If our clinical leader is not able to reach you please call [phone] to schedule your next appointments. Try flavorless protein powder or collagen powder Continue taking omeprazole daily until follow up- will consider stopping at that time Continue to hold mounjaro Start checking blood sugars - fasting in the morning Check lab today Follow up Geri Loza PA-C 04/20/2022 Information about Video Visits with [employer]: video visit information If you are asked by your clinic team to have your blood pressure checked: [facility] do offer several locations for blood pressure checks. Please follow the below link to schedule an appointment. Scheduling an appointment at the pharmacy for a blood pressure check is now preferred. Appointment Plus (appointment-plus.[employer]) Important contact and scheduling information: Please call our contact center at [phone] to schedule your next appointments. To find a lab location near you, please call . For any nursing questions or concerns call Angélica Milligan LPN at [phone] or Henny Lobo RN [phone] Please call during clinic hours Thursday through Thursday 8:00a - 4:00p if you have questions or you can contact us via [employer] at anytime and we will reply during clinic hours. Lab results will be communicated through My Chart or letter (if My Chart not used). Please call theclinic if you have not received communication after 1 week or if you have any questions.? Clinic Meal Replacement Products: Here is the link to our new e-store where you can purchase our meal replacement products [facility] E-Store [email or web address] The one week starter kit is a great way to sample a variety of products and see what works for you. If you want more information about the product go to: Blackboard If you are an employee or [facility] or [facility] please contact your care team for a 10% estore discount Free Shipping for orders over $75 Benefits of meal replacements products: Portion and calorie control Improved nutrition Structured eating Simplified food choices Avoid contact with trigger foods Interested in working with a health flag football coach? Health coaches work with you to improve your overall health and wellbeing. They look at the whole person, and may involve discussion of different areas of life, including, but not limited to the four pillars of health (sleep, exercise, nutrition, and stress management). Discuss with your care team if you would like to start working a health flag football coach. Health Coaching-3 Pack: Schedule by calling [phone] ?? $99 for three health coaching visits ?? Visits may be done in person or via phone ?? Coaching is a partnership between the flag football coach and the client; Coaches do not [...] way. Monthly meetings with your certified registered dental assistant or medical weight management provider help to review your progress, update your care plan, and make any adjustments needed to ensure success. Between these visits, weekly and bi-weekly health flag football coach visits will help you focus on the four pillars of weight loss -- stress, sleep, nutrition, and exercise -- and how you can best adapt each to achieve sustainable weight loss results. In addition, you will be given exclusive access to online wellbeing classes through [employer]. Your initial visit will be with a medical weight management provider who will help to understand your weight loss goals and ensure this program is the right fit for you. Please let our team know if you are interested in the 24 week plan by sending a message to your care team or calling [phone] schedule. [facility] Get Moving Program Our [...] the program with your medical provider or tobacco educator. You can also call us at [phone] to ask questions or schedule an appointment. PRASANTH Get Moving Program [facility] Diabetes Prevention Program (DPP) If you have prediabetes and Medicare please contact us via MyChart to learn more about the DiabetesPrevention Program (DPP) Program Details: [facility] offers the year-long Diabetes Prevention Program (DPP). The program helps you to make lifestyle changes that prevent or delay type 2 diabetes by supporting healthy eating, increasedphysical activity, stress reduction and use of coping skills. On average, previous [facility] DPP cohorts have lost and maintained [...] can resume, they will be held at [facility]. For people with Medicare, the program is covered in full. A self-pay option will also be available for those with non-Medicare insurance plans. To work with a Behavioral Health Psychologist: Call to schedule: John Lin - Marleni Tomlinson - Love Valdes - Rosie Henderson - Liana Lyons PhD (cannot accept Medicare) [phone] Thank you, [facility] Comprehensive Weight Management Team LIST LIBRARIAN documented in this encounter Progress Notes * Alia Flowers NP - 03/24/2023 10:30 AM CST Postoperative bariatric surgery visit. Patient underwent sleeve to RYNGB with hiatal hernia repair-1 week ago. 03/18/2023 Dr. Escobedo. Sleeve done at [facility] - recurrent and persistent obesity with GERD. [...] up Geri Loza PA-C 04/20/2023 LEAH Madsen [facility] PROCTOR LIST LIBRARIAN documented in this encounter Nursing Notes * [...] index is 47.88 kg/m??. Cresencio Ellison NRP LIST LIBRARIAN documented in this encounter Plan of Treatment [...] documented as of this encounter Care Teams Video Engineer Relationship Specialty [place] [address] [place] [address] PCP - General 10/15/22 Roderick Morelos MD [address] [place] 908665 Cardiovascular Disease 02/03/22 Magno Wood MD 420 [facility] 396 [place], [place] 0[address]215 Otolaryngology 02/21/22 Sophie Ocasio AuD 9[address] [place], [place] 154945 Director Of Food And Beverage Services Audiology 02/21/22 Henny Rosales, ENCHILADA MAKER CONTROL ELECTRICIAN [address] [place] [phone] Assigned Heart and Vascular Provider 08/09/[address] [place], [place] 595675 Registered Dietitian Dietitian, Registered 09/02/22 Christiane Rodríguez MD 420 [facility] 396 [place], [place] 303315 Otolaryngology 11/12/22 Jing Cadena, ENCHILADA MAKER GIFT BASKET PACKER 420 [facility] 450 [place], [place] 539605 Clinical Nurse Specialist Anesthesiology 01/15/23 Radha Lopez, [facility] 9[address] [place], [place] 337455 Pharmacist Pharmacist 01/16/23 Luis A Escobedo MD 420 [facility] 195 [place], [place] 269165 Assigned Surgical Provider 02/07/23 04/15/23 documented as of this encounter
--- OUTSIDE RECORDS SUMMARY | 2023-06-30 16:13 | XMS_ITS | Encounter Summary ---
Author Name Unknown Organization [place] Address [address] [place] [address] Care Team Providers Care Therapy Aide Name Role Phone Roderick Morelos MD Unavailable [phone] Magno Wood MD Unavailable [phone] Sophie Ocasio AuD Unavailable [phone] Henny Rosales LOG POND WORKER GLASS LAMINATING OPERATOR Unavailable [phone] Unavailable Kaykay Duarte ROBOTYPE OPERATOR Primary Care Provider Christiane Rodríguez MD Unavailable [phone] Jing Cadena LOG POND WORKER GAS WELDING EQUIPMENT MECHANIC Unavailable [phone] Radha Lopez [facility] Unavailable [phone] Luis A Escobedo MD Unavailable [phone] Geri LozaC Unavailable [phone] Raina Patterson LOG POND WORKER GLASS LAMINATING OPERATOR Unavailable [phone] Encounter Details Date Type Department Care Team (Late st Contact Info) Description 02/17/2023 [facility] [place] Medical Advice [facility] [address] 4th [place] [address] Henny Arguello RN Social History Tobacco Use [...] documented as of this encounter Care Teams Therapy Aide Relationship Specialty [place] [address] [place] [address] PCP - General 10/15/22 Roderick Morelos MD [address] [place] 945655 Cardiovascular Disease 02/03/22 Magno Wood MD [address] [place] [address] 479255 Otolaryngology 02/21/22 Sophie Ocasio AuD 909 [place], [place] 556545 Field Enumerator Audiology 02/21/22 Henny Rosales APRN GLASS LAMINATING OPERATOR [address] [place] [phone] Assigned Heart and Vascular Provider 08/09/[address] [place], [place] 454865 Registered Dietitian Dietitian, Registered 09/02/22 Christiane Rodríguez MD 420 [facility] 396 [place], [place] 626535 Otolaryngology 11/12/22 Jing Cadena APRN GAS WELDING EQUIPMENT MECHANIC 420 [facility] 450 [place] [address] Clinical Nurse Specialist Anesthesiology 01/15/23 Radha Lopez, [facility] [address] [place] [address] 514135 Pharmacist Pharmacist 01/16/23 Luis A Escobedo MD 420 [facility] 195 [place], [place] 638005 Assigned Surgical Provider 02/07/23 04/15/23 Geri Loza PA-C 9 [place], [place] 655285 Assigned Surgical Provider 04/16/23 Raina Patterson, GINA GLASS LAMINATING OPERATOR [address] [place] 966565 Nurse Practitioner Cardiovascular Disease 05/11/23 documented as of this encounter
--- OUTSIDE RECORDS SUMMARY | 2023-06-30 16:13 | XMS_ITS | Encounter Summary ---
Author Name Unknown Organization [place] Address [address] [facility] [place] [address] Care Team Providers Care Actuarial Director Name Role Phone Roderick Morelos MD Unavailable [phone] Magno Wood MD Unavailable [phone] Sophie Ocasio AuD Unavailable [phone] Henny Rosales PROBATION WORKER DRY PRIMER POWDER BLENDER Unavailable [phone] Unavailable Kaykay Duarte TRAVEL AGENT Primary Care Provider [phone] Christiane Rodríguez MD Unavailable Jing Cadena PROBATION WORKER SKEIN WINDER Unavailable Radha Lopez [facility] Unavailable Luis A Escobedo MD Unavailable [phone] Geri LozaC Unavailable [phone] Raina Patterson PROBATION WORKER DRY PRIMER POWDER BLENDER Unavailable [phone] Encounter Details Date Type Department Care Team (Late st Contact Info) Description 03/17/2023 [facility] Medical Advice UR PREOP/PHASE II [address] [place] [address] Pearl Rocha, RN Social History Tobacco Use Types Packs/Day [...] documented as of this encounter Care Teams Actuarial Director Relationship Specialty Start Date End Date Kaykay Duarte TRAVEL AGENT [address] [place] [address] PCP - General 10/15/22 Roderick Morelos MD [address] [place] [address] Cardiovascular Disease 02/03/22 Magno Wood MD [address] [place] [address] 396 [place], [place] 518095 Otolaryngology 02/21/22 Sophie Ocasio AuD 909 [place], [place] 676885 Elevator Operator Freight Audiology 02/21/22 Henny Rosales APRN DRY PRIMER POWDER BLENDER [address] [place] [phone] Assigned Heart and Vascular Provider 08/09/[address] [place] [address] 777595 Registered Dietitian Dietitian, Registered 09/02/22 Christiane Rodríguez MD 420 [facility] 396 [place], [place] 438175 Otolaryngology 11/12/22 Jing Cadena APRN SKEIN WINDER 420 [facility] 450 [place], [place] 093145 Clinical Nurse Specialist Anesthesiology 01/15/[address] [facility] [facility] [address] [place] [address] 536065 Pharmacist Pharmacist 01/16/23 Luis A Escobedo MD 420 [facility] 195 [place], [place] 306235 Assigned Surgical Provider 02/07/23 04/15/23 Geri Loza PA-C [address] [place] [address] 573565 Assigned Surgical Provider 04/16/23 Raina Patterson, GINA DRY PRIMER POWDER BLENDER [address] [place] 556025 Nurse Practitioner Cardiovascular Disease 05/11/23 documented as of this encounter
--- OUTSIDE RECORDS SUMMARY | 2023-06-30 16:13 | XMS_ITS | Encounter Summary ---
Author Name Unknown Organization [place] Address [address] [place] [address] Care Team Providers Care Cardiopulmonary Technician Name Role Phone Roderick Morelos MD Unavailable [phone] Magno Wood MD Unavailable [phone] Sophie Ocasio AuD Unavailable [phone] Henny Rosales PRETZEL PACKER LEARNING AND DEVELOPMENT DIRECTOR Unavailable [phone] Unavailable Kaykay Duarte STAVE INSPECTOR Primary Care Provider Christiane Rodríguez MD Unavailable [phone] Jing Cadena PRETZEL PACKER DOMINATRIX Unavailable [phone] Radha Lopez [facility] Unavailable [phone] Luis A Escobedo MD Unavailable [phone] Geri LozaC Unavailable [phone] Raina Patterson PRETZEL PACKER LEARNING AND DEVELOPMENT DIRECTOR Unavailable [phone] Encounter Details Date Type Department Care Team (Late st Contact Info) Description 03/24/2023 MyC Medical Advice [facility] [address] 4th [place] [address] Angélica Milligan Social History Tobacco [...] documented as of this encounter Care Teams Cardiopulmonary Technician Relationship Specialty Start Date End Date Kaykay Duarte, STAVE INSPECTOR [address] [place] [address] PCP - General 10/15/22 Roderick Morelos MD [address] [place] [address] Cardiovascular Disease 02/03/22 Magno Wood MD [address] [place] [address] 396 [place], [place] 032445 Otolaryngology 02/21/22 Sophie Ocasio AuD 909 [place], [place] 821265 Truer Pinion And Wheel Audiology 02/21/22 Henny Rosales APRN LEARNING AND DEVELOPMENT DIRECTOR [address] [place] [phone] Assigned Heart and Vascular Provider 08/09/[address] [place], [place] 819345 Registered Dietitian Dietitian, Registered 09/02/22 Christiane Rodríguez MD 420 [facility] 396 [place], [place] 289505 Otolaryngology 11/12/22 Jing Cadena APRN DOMINATRIX 420 [facility] 450 [place], [place] 375275 Clinical Nurse Specialist Anesthesiology 01/15/23 Radha Lopez [facility] [address] [place] [address] 676145 Pharmacist Pharmacist 01/16/23 Luis A Escobedo MD 420 [facility] 195 [place], [place] 203395 Assigned Surgical Provider 02/07/23 04/15/23 Geri Loza PA-C [address] [place] [address] 823305 Assigned Surgical Provider 04/16/23 Raina Patterson, GINA LEARNING AND DEVELOPMENT DIRECTOR [address] [place] 471145 Nurse Practitioner Cardiovascular Disease 05/11/23 documented as of this encounter
--- OUTSIDE RECORDS SUMMARY | 2023-06-30 16:13 | XMS_ITS | Encounter Summary ---
Author Name Unknown Organization [facility] Address [address] [place] [address] Care Team Providers Care Provider Service Representative Name Role Phone Roderick Morelos MD Unavailable [phone] Magno Wood MD Unavailable [phone] Sophie Ocasio AuD Unavailable [phone] Henny Rosales CONVERSION DEVELOPER VISCOSE DEPARTMENT WORKER Unavailable [phone] Unavailable Kaykay Duarte SALES AND OPERATIONS TRAINEE Primary Care Provider Christiane Rodríguez MD Unavailable [phone] Jing Cadena CONVERSION DEVELOPER MULTIMEDIA PRODUCER Unavailable [phone] Radha Lopez [facility] Unavailable [phone] Luis A Escobedo MD Unavailable [phone] Geri LozaC Unavailable [phone] Raina Patterson CONVERSION DEVELOPER VISCOSE DEPARTMENT WORKER Unavailable [phone] Encounter Details Date Type Department Care Team (Late st Contact Info) Description 02/18/2023 [facility] [address] 5th [place] [address] Nikky Babb, RN Social History [...] documented as of this encounter Care Teams Provider Service Representative Relationship Specialty Start Date End Date Kaykay Duarte SALES AND OPERATIONS TRAINEE [address] [place] [address] PCP - General 10/15/22 Roderick Morelos MD [address] [place] [address] Cardiovascular Disease 02/03/22 Magno Wood MD [address] [place] [address] 149855 Otolaryngology 02/21/22 Sophie Ocasio, Nick 909 [place], [place] 616225 Java Android Developer Audiology 02/21/22 Henny Rosales APRN VISCOSE DEPARTMENT WORKER [address] [place] [phone] Assigned Heart and Vascular Provider 08/09/[address] [place] [address] 210935 Registered Dietitian Dietitian, Registered 09/02/22 Christiane Rodríguez MD [address] [place] [address] 396 [place], [place] 673835 Otolaryngology 11/12/22 Jing Cadena APRN MULTIMEDIA PRODUCER [address] [place] [address] 450 [place], [place] 536415 Clinical Nurse Specialist Anesthesiology 01/15/23 Radha Lopez, [facility] [address] [place] [address] 985325 Pharmacist Pharmacist 01/16/23 Luis A Escobedo MD [address] [place] [address] 195 [place], [place] 518855 Assigned Surgical Provider 02/07/23 04/15/23 Geri Loza PA-C [address] [place] [address] 084935 Assigned Surgical Provider 04/16/23 Raina Patterson, GINA VISCOSE DEPARTMENT WORKER [address] [place] 701325 Nurse Practitioner Cardiovascular Disease 05/11/23 documented as of this encounter
--- OUTSIDE RECORDS SUMMARY | 2023-06-30 16:13 | XMS_ITS | Encounter Summary ---
Author Name Unknown Organization [facility] Address [address] [place] [address] 25578 Care Team Providers Care [place]field Program Coordinator Name Role Phone Roderick Morelos MD Unavailable [phone] Magno Wood MD Unavailable [phone] Sophie Ocasio AuD Unavailable [phone] Henny Rosales LINING MARKER TERMINAL MAKEUP OPERATOR Unavailable [phone] Unavailable Kaykay Duarte PLUMBING AND HEATING CONTRACTOR Primary Care Provider [phone] hCristiane Rodríguez MD Unavailable [phone] Jing Cadena LINING MARKER PROMOTION WRITER Unavailable [phone] Radha Lopez [facility] Unavailable [phone] Luis A Escobedo MD Unavailable [phone] Geri LozaC Unavailable [phone] Raina Patterson LINING MARKER TERMINAL MAKEUP OPERATOR Unavailable [phone] Encounter Details Date Type Department Care Team (Late st Contact Info) Description 02/17/2023 [facility] [place] [facility] [address] 4th [place] [address] Henny Arguello RN Social History [...] documented as of this encounter Care Teams [place] Program Coordinator Relationship Specialty [place] [address] [place] [address] PCP - General 10/15/22 Roderick Morelos MD [address] [place] 887645 Cardiovascular Disease 02/03/22 Magno Wood MD [address] [place] [address] 565195 Otolaryngology 02/21/22 Sophie Ocasio AuD [address] [place], [place] 328555 Ssn/Ssbn Assistant Navigator Audiology 02/21/22 Henny Rosales APRN TERMINAL MAKEUP OPERATOR [address] [place] [phone] Assigned Heart and Vascular Provider 08/09/[address] [place], [place] 043535 Registered Dietitian Dietitian, Registered 09/02/22 Christiane Rodríguez MD 420 [facility] [address] [place], [place] 411565 Otolaryngology 11/12/22 Jing Cadena APRN PROMOTION WRITER [address] [facility] [address] [place] [address] Clinical Nurse Specialist Anesthesiology 01/15/23 Radha Lopez, [facility] [address] [place] [address] 660305 Pharmacist Pharmacist 01/16/23 Lui sA Escobedo MD 420 [facility] [address] [place], [place] 695975 Assigned Surgical Provider 02/07/23 04/15/23 Geri Loza PA-C 9 [place], [place] 014095 Assigned Surgical Provider 04/16/23 Raina Patterson, GINA TERMINAL MAKEUP OPERATOR [address] [place] 260075 Nurse Practitioner Cardiovascular Disease 05/11/23 documented as of this encounter
--- OUTSIDE RECORDS SUMMARY | 2023-06-30 16:13 | XMS_ITS | Encounter Summary ---
Author Name Unknown Organization [facility] Address [address] [place] [address] Care Team Providers Care Liaison Officer Name Role Phone Roderick Morelos MD Unavailable [phone] Magno Wood MD Unavailable [phone] Sophie Ocasio AuD Unavailable [phone] Henny Rosales RN CHRONIC CHAINSTITCH TUNNEL ELASTIC OPERATOR Unavailable [phone] Unavailable Kaykay Duarte TEACHER HOME THERAPY Primary Care Provider Christiane Rodríguez MD Unavailable [phone] Jing Cadena RN CHRONIC MANAGER PACKAGE Unavailable [phone] Radha Lopez [facility] Unavailable [phone] Luis A Escobedo MD Unavailable [phone] Geri LozaC Unavailable [phone] Raina Patterson RN CHRONIC CHAINSTITCH TUNNEL ELASTIC OPERATOR Unavailable [phone] Encounter Details Date Type Department Care Team (Late st Contact Info) Description 03/11/2023 MyC Medical Advice Initial Department [facility] [place] Social History Tobacco Use Types Packs/Day Years [...] documented as of this encounter Care Teams Liaison Officer Relationship Specialty Start Date End Date Kaykay Duarte TEACHER HOME THERAPY [address] [place] [address] PCP - General 10/15/22 Roderick Morelos MD [address] [place] [address] Cardiovascular Disease 02/03/22 Magno Wood MD [address] [place] [address] 948085 Otolaryngology 02/21/22 Sophie Ocasio AuD [address] [place] [address] 947065 Roentgenologist Audiology 02/21/22 Henny Rosales APRN CHAINSTITCH TUNNEL ELASTIC OPERATOR [address] [place] [phone] Assigned Heart and Vascular Provider 08/09/[address]09 [place] [address] Registered Dietitian Dietitian, Registered 09/02/22 Christiane Rodríguez MD 420 [facility] 396 [place] [address] Otolaryngology 11/12/22 Jing Cadena, RN CHRONIC MANAGER PACKAGE 420 [facility] 450 [place], [place] 559055 Clinical Nurse Specialist Anesthesiology 01/15/23 Radha Lopez, [facility] [address] [place] [address] Pharmacist Pharmacist 01/16/23 Luis A Escobedo MD 420 [facility] 195 [place] [address] Assigned Surgical Provider 02/07/23 04/15/23 Geri Loza PA-C 9 [place] [address] Assigned Surgical Provider 04/16/23 Raina Patterson, GINA CHAINSTITCH TUNNEL ELASTIC OPERATOR [address] [facility] [address] [place], [place] 559595 Nurse Practitioner Cardiovascular Disease 05/11/23 documented as of this encounter
--- OUTSIDE RECORDS SUMMARY | 2023-06-30 16:13 | XMS_ITS | Encounter Summary ---
Author Name Unknown Organization [place] Address [address] [place] [address] 7[address] Care Team Providers Care Director Public Name Role Phone Roderick Morelos MD Unavailable [phone] Magno Wood MD Unavailable [phone] Sophie Ocasio AuD Unavailable [phone] Henny Rosales BUSINESS PROCESS ENGINEER SUSTAINABLE DESIGN CONSULTANT Unavailable [phone] Unavailable Kaykay Duarte OPERATIONS CONSULTANT Primary Care Provider Christiane Rodríguez MD Unavailable [phone] Jing Cadena BUSINESS PROCESS ENGINEER FINISHED HARDWARE ERECTOR Unavailable [phone] Radha Lopez [facility] Unavailable [phone] Luis A Escobedo MD Unavailable [phone] Geri LozaC Unavailable [phone] Raina Patterson BUSINESS PROCESS ENGINEER SUSTAINABLE DESIGN CONSULTANT Unavailable [phone] Encounter Details Date Type Department Care Team (Late st Contact Info) Description 03/25/2023 [facility] Advice [facility] [address] 4th [place] [address] Mychart, [place] Social History Tobacco Use Types Packs/Day Years [...] documented as of this encounter Care Teams Director Public Relationship Specialty Start Date End Date Kaykay Duarte, OPERATIONS CONSULTANT [address] [place] [address] PCP - General 10/15/22 Roderick Morelos MD [address] [place] [address] Cardiovascular Disease 02/03/22 Magno Wood MD [address] [place] [address] 396 [place], [place] 648705 Otolaryngology 02/21/22 Sophie Ocasio AuD 909 [place], [place] 965225 Construction Safety Consultant Audiology 02/21/22 Henny Rosales APRN SUSTAINABLE DESIGN CONSULTANT [address] [place] [id number] Assigned Heart and Vascular Provider 08/09/[address] [place] [address] 803865 Registered Dietitian Dietitian, Registered 09/02/22 Christiane Rodríguez MD 420 [facility] 396 [place], [place] 206395 Otolaryngology 11/12/22 Jing Cadena APRN FINISHED HARDWARE ERECTOR 420 [facility] 450 [place], [place] 507665 Clinical Nurse Specialist Anesthesiology 01/15/23 Radha Lopez [facility] [address] [place] [address] 691585 Pharmacist Pharmacist 01/16/23 Luis A Escobedo MD 420 [facility] 195 [place], [place] 418795 Assigned Surgical Provider 02/07/23 04/15/23 Geri Loza PA-C [address] [place] [address] 686755 Assigned Surgical Provider 04/16/23 Raina Patterson, GINA SUSTAINABLE DESIGN CONSULTANT [address] [place] 768585 Nurse Practitioner Cardiovascular Disease 05/11/23 documented as of this encounter
--- OUTSIDE RECORDS SUMMARY | 2023-06-30 16:13 | XMS_ITS | Encounter Summary ---
Author Name Unknown Organization [facility] Address [address] [place] [address]85 Care Team Providers Care Integrated Logistics Support Manager Name Role Phone Roderick Morelos MD Unavailable [phone] Magno Wood MD Unavailable [phone] Sophie Ocasio AuD Unavailable [phone] Henny Rosales COURTESY VAN DRIVER POLICE MAGISTRATE Unavailable [phone] Unavailable Kaykay Duarte ETL MANAGER Primary Care Provider Christiane Rodríguez MD Unavailable [phone] Jing Cadena COURTESY VAN DRIVER MARSH BUGGY OPERATOR Unavailable [phone] Radha Lopez [facility] Unavailable [phone] Luis A Escobedo MD Unavailable [phone] Geri LozaC Unavailable [phone] Raina Patterson COURTESY VAN DRIVER POLICE MAGISTRATE Unavailable [phone] Encounter Details Date Type Department Care Team (Late st Contact Info) Description 03/11/2023 MyC Medical Advice Initial Department [facility] [place] Social History Tobacco Use Types Packs/Day Years [...] documented as of this encounter Care Teams Integrated Logistics Support Manager Relationship Specialty Start Date End Date Kaykay Duarte ETL MANAGER [address] [place] [address] PCP - General 10/15/22 Roderick Morelos MD [address] [place] 145945 Cardiovascular Disease 02/03/22 Magno Wood MD [address] [place] [address] 682285 Otolaryngology 02/21/22 Sophie Ocsaio AuD [address] [place] [address] 531535 Packing Shed Supervisor Audiology 02/21/22 Henny Rosales APRN POLICE MAGISTRATE [address] [place] [phone] Assigned Heart and Vascular Provider 08/09/[address] 909 [place] [address] Registered Dietitian Dietitian, Registered 09/02/22 Christiane Rodríguez MD 420 [facility] 396 [place] [address] Otolaryngology 11/12/22 Jing Cadena, COURTESY VAN DRIVER MARSH BUGGY OPERATOR 420 [facility] 450 [place], [place] 929645 Clinical Nurse Specialist Anesthesiology 01/15/23 Radha Lopez, [facility] [address] [place] [address] Pharmacist Pharmacist 01/16/23 Luis A Escobedo MD 420 [facility] 195 [place] [address] Assigned Surgical Provider 02/07/23 04/15/23 Geri Loza PA-C 9 [place] [address] Assigned Surgical Provider 04/16/23 Raina Patterson, GINA POLICE MAGISTRATE [address] [facility] [address] [place], [place] 462895 Nurse Practitioner Cardiovascular Disease 05/11/23 documented as of this encounter
--- OUTSIDE RECORDS SUMMARY | 2023-06-30 16:13 | XMS_ITS | Encounter Summary ---
Author Name Unknown Organization [facility] Address [address] [place] [address] Care Team Providers Care Bike Assembler Name Role Phone Roderick Morelos MD Unavailable [phone] Magno Wood MD Unavailable [phone] Sophie Ocasio AuD Unavailable [phone] Henny Rosales BIOINFORMATICS SPECIALIST ELECTRICAL ELECTRONICS ENGINEER Unavailable [phone] Unavailable Kaykay Duarte BIRDCAGE ASSEMBLER Primary Care Provider Christiane Rodríguez MD Unavailable [phone] Jing Cadena BIOINFORMATICS SPECIALIST BUSINESS MANAGEMENT SPECIALIST Unavailable Radha Lopez [facility] Unavailable [phone] Luis A Escobedo MD Unavailable [phone] Encounter Details Date Type Department Care Team [...] documented as of this encounter Care Teams Bike Assembler Relationship Specialty Start Date End Date Kaykay Duarte, BIRDCAGE ASSEMBLER [address] [place] [address] PCP - General 10/15/22 Roderick Morelos MD [address] [place], [place] 149805 Cardiovascular Disease 02/03/22 Magno Wood MD [address] [place] [address] 396 [place], [place] 144575 Otolaryngology 02/21/22 Sophie Ocasio AuD [address] [place] [address] 643265 Paralegal Assistant Audiology 02/21/22 Henny Rosales, BIOINFORMATICS SPECIALIST ELECTRICAL ELECTRONICS ENGINEER [address] [place] [phone] Assigned Heart and Vascular Provider 08/09/[address] 909 [place] [address] Registered Dietitian Dietitian, Registered 09/02/22 Christiane Rodríguez MD 420 [facility] 396 [place], [place] 503615 Otolaryngology 11/12/22 Jing Cadena, BIOINFORMATICS SPECIALIST BUSINESS MANAGEMENT SPECIALIST 420 [facility] 450 [place] [address] Clinical Nurse Specialist Anesthesiology 01/15/23 Radha Lopez, [facility] 909 [place] [address] Pharmacist Pharmacist 01/16/23 Luis A Escobedo MD 420 [facility] 195 [place], [place] 846595 Assigned Surgical Provider 02/07/23 04/15/23 documented as of this encounter
--- OUTSIDE RECORDS SUMMARY | 2023-06-30 16:13 | XMS_ITS | Encounter Summary ---
Author Name Unknown Organization [facility] Address [address] [place] [address] Care Team Providers Care Sat Act Instructor Name Role Phone Roderick Morelos MD Unavailable [phone] Magno Wood MD Unavailable [phone] Sophie Ocasio AuD Unavailable [phone] Henny Rosales BASKETBALL SCOUT CLAIM EXAMINER Unavailable [phone] Unavailable Kaykay Duarte INSOLE PRESSER Primary Care Provider Christiane Rodríguez MD Unavailable [phone] Jing Cadena BASKETBALL SCOUT CASTING AND CURING OPERATOR Unavailable Radha Lopez [facility] Unavailable [phone] Luis A Escobedo MD Unavailable [phone] Geri LozaC Unavailable [phone] Raina Patterson BASKETBALL SCOUT CLAIM EXAMINER Unavailable [phone] Encounter Details Date Type Department Care Team (Late st Contact Info) Description 04/06/2023 [facility] Medical Advice [facility] [address] 4th [place] [address] Tanya Larsen RN Social History [...] documented as of this encounter Care Teams Sat Act Instructor Relationship Specialty Start Date End Date Kaykay Duarte INSOLE PRESSER [address] [place] [address] PCP - General 10/15/22 Roderick Morelos MD [address] [place] [address] Cardiovascular Disease 02/03/22 Magno Wood MD [address] [place] [address] [id number] Otolaryngology 02/21/22 Sophie Ocasio AuD 909 [place], [place] 563265 Predator Control Trapper Audiology 02/21/22 Henny Rosales APRN CLAIM EXAMINER [address] [place] [id number] Assigned Heart and Vascular Provider 08/09/[address] [place] [address] 329035 Registered Dietitian Dietitian, Registered 09/02/22 Christiane Rodríguez MD 420 [facility] 396 [place], [place] 175525 Otolaryngology 11/12/22 Jing Cadena APRN CASTING AND CURING OPERATOR [address] [place] [address] 450 [place], [place] 75[address] Clinical Nurse Specialist Anesthesiology 01/15/23 Radha Lopez, [facility] [address] [place] [address] 091785 Pharmacist Pharmacist 01/16/23 Luis A Escobedo MD [address] [place] [address] 195 [place], [place] 534695 Assigned Surgical Provider 02/07/23 04/15/23 Geri Loza PA-C [address] [place] [address] 183545 Assigned Surgical Provider 04/16/23 Raina Patterson APRN CLAIM EXAMINER [address] [place] 754155 Nurse Practitioner Cardiovascular Disease 05/11/23 documented as of this encounter
--- OUTSIDE RECORDS SUMMARY | 2023-06-30 16:13 | XMS_ITS | Encounter Summary ---
Author Name Unknown Organization [facility] Address [address] [place] [address] Care Team Providers Care Economics Instructor Name Role Phone Roderick Morelos MD Unavailable [phone] Magno Wood MD Unavailable [phone] Sophie Ocasio AuD Unavailable [phone] Henny Rosales PLATER HOT DIP CHECKER/STOCKER Unavailable Sharee Negron RD Unavailable Kaykay Duarte TAX MANAGER PUBLIC Primary Care Provider Christiane Rodríguez MD Unavailable [phone] Jing Cadena PLATER HOT DIP UTILITY DIVISION PROJECT MANAGER Unavailable Radha Lopez [facility] Unavailable Luis A Escobedo MD Unavailable [phone] Reason for Visit * Reason Comments RECHECK Joseph Nutrition Encounter Details Date Type Department Care Team (Latest Contact Info) Description 03/25/2023 2:30 PM MANAGER GAMING Virtual Visit [facility] [address] [place] [address] Sharee Negron, RD [address] [place] [address] Nutritional counseling (Primary Dx); S/P laparoscopic [...] 129.3 kg (285 lb) 03/25/2023 2:15 PM MANAGER GAMING Height 167.6 cm (5' 6) 03/25/2023 2:15 PM MANAGER GAMING Body Mass Index 46 03/25/2023 2:15 PM MANAGER GAMING documented in this encounter Patient Instructions * Patient Instructions* Sharee Negron, RD - 03/25/2023 2:30 PM MANAGER GAMING Goals: 1) Follow diet advancement schedule below. 2) Work towards 60 gm protein/day. 3) Consume 48-64+ oz fluids daily- between meals only once on puree diet 4) Eat slowly (>20 min/meal), chewing well to smooth consistency once on the bariatric soft diet. 5) Limit portions to ~1/4/meal plus 1-2 protein shakes/day as needed 6) Start chewable/liquid multivitamin/minerals daily - [place] 2 per day - Add B12 next month - Add Vitamin D next month - Add chewable calcium citrate if needed next month (want 1318-8595 mg/day) Post-op Diet Advancement Schedule: Pureed Diet (stage 3): START April 01 Soft Diet (stage 4): START April 15 Regular Diet (stage 5): START May 13 Post-op Diet Handouts: Diet Guidelines after Weight-loss Surgery [email or web address] Your Stage 1 Diet: Clear Liquids [email or web address] Your Stage 2 Diet: Low-fat Full Liquids [email or web address] Your Stage 3 Diet: Pureed Foods [email or web address]://[email or web address] Pureed Recipes [email or web address] Your Stage 4 Diet: Soft Foods [email or web address]://[email or web address] Your Stage 5 Diet: Regular Foods [email or web address]://[email or web address] Supplements after Sleeve Gastrectomy, Gastric Bypass or Single Anastomosis Duodenal Switch [email or web address] Keeping Track of Fluids [email or web address] Exercise Guidelines after Weight Loss Surgery (1st 4-6 weeks) [email or web address] Follow-Up: April 20 at 10:00 am SIVA Terrazas (Duncan), ÁNGEL, LD Clinic #: [phone] GER GAMING documented in this encounter Progress Notes * Sharee Negron RD - 03/25/2023 2:30 PM CST Video-Visit Details Type of service: Video Visit Video Start Time: 2:20 pm Video End Time: 2:50 pm Originating Location (pt. Location): Home Distant Location (provider location): Offsite (providers home) Platform used for Video Visit: Machinio Nutrition Assessment Reason For Visit: Billie Connolly [...] lbs from day of surgery Current Vitamins/Minerals: [place] MVI with iron - Will start 2 [...] 1cup volume total) Additional information: FT - Supervisor Color Making Activity: limited by pain (needs hip replacement [...] needed 6) Start chewable/liquid multivitamin/minerals daily - [place] 2 per day - Add B12 next month - Add Vitamin D next month - Add chewable calcium citrate if needed next month (want 9280-9980 mg/day) Post-op Diet Advancement Schedule: Pureed Diet (stage 3): START April 01 Soft Diet (stage 4): START April 15 Regular Diet (stage 5): START May 13 Post-op Diet Handouts: Diet Guidelines after Weight-loss Surgery [email or web address] Your Stage 1 Diet: Clear Liquids [email or web address] Your Stage 2 Diet: Low-fat Full Liquids [email or web address]://[email or web address] Your Stage 3 Diet: Pureed Foods [email or web address]://[email or web address] Pureed Recipes [email or web address]://[email or web address] Your Stage 4 Diet: Soft Foods [email or web address]://[email or web address] Your Stage 5 Diet: Regular Foods [email or web address]://[email or web address] Supplements after Sleeve Gastrectomy, Gastric Bypass or Single Anastomosis Duodenal Switch [email or web address]://[email or web address] Keeping Track of Fluids [email or web address] Exercise Guidelines after Weight Loss Surgery (1st 4-6 weeks) [email or web address] Follow-Up: April 20 at 10:00 am Time spent with patient: 30 minutes. SIVA Peacock,, RD, LD GER GAMING documented in this encounter Nursing Notes * [place] - 03/25/2023 2:30 PM CST Is the patient currently in the state of [place]? YES Visit mode:VIDEO If the visit is dropped, the patient can be reconnected by: VIDEO VISIT: Text to cell phone: Telephone Information: Will anyone else be joining the visit? NO (If patient encounters technical issues they should call [phone] How would you like to obtain your AVS? MyChart Are changes needed to the allergy or medication list? N/A Reason for visit: RECHECK (Joseph Nutrition) Virginia Ramirez [facility] GER GAMING documented in this encounter Plan of Treatment [...] documented as of this encounter Care Teams Economics Instructor Relationship Specialty [place] [address] [place] [address] PCP - General 10/15/22 Roderick Morelos MD [address] [place] [address] Cardiovascular Disease 02/03/22 Magno Wood MD [address] [place] [address] [id number] Otolaryngology 02/21/22 Sophie Ocasio AuD 909 [place], [place] 949045 Drill Punch Operator Audiology 02/21/22 Henny Rosales APRN CHECKER/STOCKER [address] [place] [phone] Assigned Heart and Vascular Provider 08/09/[address] [place] [address] Registered Dietitian Dietitian, Registered 09/02/22 Christiane Rodríguez MD [address] [place] [address] 396 [place] [address] Otolaryngology 11/12/22 Jing Cadena, PLATER HOT DIP UTILITY DIVISION PROJECT MANAGER [address] [place] [address] 450 [place], [place] 784505 Clinical Nurse Specialist Anesthesiology 01/15/23 Radha Lopez, [facility] [address] [place] [address] [phone] Pharmacist Pharmacist 01/16/23 Luis A Escobedo MD [address] [place] [address] 195 [place] [address] Assigned Surgical Provider 02/07/23 04/15/23 documented as of this encounter
--- OUTSIDE RECORDS SUMMARY | 2023-06-30 16:13 | XMS_ITS | Encounter Summary ---
Author Name Unknown Organization [employer] Address [address] [place] [address]696 Care Team Providers Care Director Money Name Role Phone Roderick Morelos MD Unavailable [phone] Magno Wood MD Unavailable [phone] Sophie Ocasio AuD Unavailable [phone] Henny Rosales ASSISTANT PROFESSOR OF COMMUNICATION MATHEMATICS FACULTY MEMBER Unavailable [phone] Unavailable Kaykay Duarte PILE DRIVING NOZZLEMAN Primary Care Provider Christiane Rodríguez MD Unavailable [phone] Jing Cadena ASSISTANT PROFESSOR OF COMMUNICATION SENIOR WEALTH ADVISOR Unavailable [phone] Radha Lopez [facility] Unavailable [phone] Luis A Escobedo MD Unavailable [phone] Geri LozaC Unavailable [phone] Raina Patterson ASSISTANT PROFESSOR OF COMMUNICATION MATHEMATICS FACULTY MEMBER Unavailable [phone] Encounter Details Date Type Department Care Team (Late st Contact Info) Description 04/02/2023 [facility] [place] [facility] [address] 4th [place] [address] Tanya Larsen RN Social History [...] as of this encounter Care Teams Director Money Relationship Specialty Start Date End Date Kaykay Duarte PILE DRIVING NOZZLEMAN [address] [place] [address] PCP - General 10/15/22 Roderick Morelos MD [address] [place] [address] Cardiovascular Disease 02/03/22 Magno Wood MD [address] [place] [address] [id number] Otolaryngology 02/21/22 Sophie Ocasio AuD 909 [place], [place] 374715 Hydroponics Grower Audiology 02/21/22 Henny Rosales APRN MATHEMATICS FACULTY MEMBER [address] [place] [id number] Assigned Heart and Vascular Provider 08/09/[address] [place] [address] [id number] Registered Dietitian Dietitian, Registered 09/02/22 Christiane Rodríguez MD 420 [facility] 396 [place], [place] 920415 Otolaryngology 11/12/22 Jing Cadena APRN SENIOR WEALTH ADVISOR [address] [place] [address] 450 [place], [place] 034465 Clinical Nurse Specialist Anesthesiology 01/15/23 Radha Lopez, [facility] [address] [place] [address] 078115 Pharmacist Pharmacist 01/16/23 Luis A Escobedo MD [address] [place] [address] 195 [place], [place] 079085 Assigned Surgical Provider 02/07/23 04/15/23 Geri Loza PA-C [address] [place] [address] 568625 Assigned Surgical Provider 04/16/23 Raina Patterson APRN MATHEMATICS FACULTY MEMBER [address] [place] 596235 Nurse Practitioner Cardiovascular Disease 05/11/23 documented as of this encounter
--- OUTSIDE RECORDS SUMMARY | 2023-06-30 16:13 | XMS_ITS | Encounter Summary ---
Author Name Unknown Organization [employer] Address [address] [place] [address] Care Team Providers Care Heel Builder Name Role Phone Roderick Morelos MD Unavailable [phone] Magno Wood MD Unavailable [phone] Sophie Ocasio AuD Unavailable [phone] Henny Rosales PROPERTY MANAGEMENT SUPERVISOR DIRECTOR OF DEVELOPMENT Unavailable [phone] Unavailable Kaykay Duarte CONDUIT REAMER OPERATOR Primary Care Provider Christiane Rodríguez MD Unavailable [phone] Jing Cadena PROPERTY MANAGEMENT SUPERVISOR CENTERLESS GRINDER OPERATOR Unavailable +[phone] Radha Lopez [facility] Unavailable [phone] Luis A Escobedo MD Unavailable [phone] Geri LozaC Unavailable [phone] Raina Patterson PROPERTY MANAGEMENT SUPERVISOR DIRECTOR OF DEVELOPMENT Unavailable [phone] Encounter Details Date Type Department Care Team (Late st Contact Info) Description 03/21/2023 [facility] [place] [facility] [place] [id number] [facility] 4th [place] [address] Luis A Escobedo MD [address] [place] [address] 195 [place] [address] Social History Tobacco Use Types Packs/Day Years [...] documented as of this encounter Care Teams Heel Builder Relationship Specialty Start Date End Date Kaykay Duarte, CONDUIT REAMER OPERATOR [address] [facility] [place] [place] [address] PCP - General 10/15/22 Roderick Morelos MD [address] [place], [place] 825435 Cardiovascular Disease 02/03/22 Magno Wood MD 420 [facility] 396 [place], [place] 242185 Otolaryngology 02/21/22 Sophie Ocasio AuD 909 [place], [place] 431105 Voice Professor Audiology 02/21/22 Henny Rosales APRN DIRECTOR OF DEVELOPMENT [address] [place] [address] Assigned Heart and Vascular Provider 08/09/[address] 909 [place] [address] Registered Dietitian Dietitian, Registered 09/02/22 Christiane Rodríguez MD 420 [facility] 396 [place], [place] 729185 Otolaryngology 11/12/22 Jing Cadena APRN CENTERLESS GRINDER OPERATOR 420 [facility] 450 [place], [place] 617225 Clinical Nurse Specialist Anesthesiology 01/15/23 Radha Lopez, [facility] 909 [place], [place] 157815 Pharmacist Pharmacist 01/16/23 Luis A Escobedo MD 420 [facility] 195 [place] [address] Assigned Surgical Provider 02/07/23 04/15/23 Geri Loaz PA-C 909 [place] [address] Assigned Surgical Provider 04/16/23 Raina Patterson APRN DIRECTOR OF DEVELOPMENT [address] [place] [address] Nurse Practitioner Cardiovascular Disease 05/11/23 documented as of this encounter
--- OUTSIDE RECORDS SUMMARY | 2023-06-30 16:14 | XMS_ITS | Encounter Summary ---
Author Name Unknown Organization [facility] Address [address] [place] [address] Care Team Providers Care Foam Rubber Fabricator Name Role Phone Roderick Morelos MD Unavailable [phone] Magno Wood MD Unavailable [phone] Sophie Ocasio AuD Unavailable [phone] Henny Rosales ASSISTANT LIBRARIAN CONTACT LENS EDGE BUFFER Unavailable [phone] Unavailable Kaykay Duarte FITNESS MANAGER Primary Care Provider [phone] Christiane Rodríguez MD Unavailable [phone] Luis A Escobedo MD Unavailable [phone] Chely FernandezC Unavailable [phone] Jing Cadena APRN EMBROIDERER HAND Unavailable [phone] Radha Lopez [facility] Unavailable [phone] Lui sA Escobedo MD Unavailable [phone] Geri LozaC Unavailable [phone] Raina Patterson APRN CONTACT LENS EDGE BUFFER Unavailable [phone] Encounter Details Date Type Department Care Team (Late st Contact Info) Description 11/07/2022 [facility] Medical Advice [facility] [place] 909 [facility] 4th [place] [phone] Geri Loza PA-C [address] [place] [address] 364055 Social History Tobacco Use Types Packs/Day Years [...] documented as of this encounter Care Teams Foam Rubber Fabricator Relationship Specialty Start Date End Date Kaykay Duarte FITNESS MANAGER [address] [place] [address] PCP - General 10/15/22 Roderick Morelos MD [address] [place] 632915 Cardiovascular Disease 02/03/22 Magno Wood MD 420 [facility] 396 [place], [place] 948945 Otolaryngology 02/21/22 Sophie Ocasio AuD 909 [place], [place] 774955 Director Trust Audiology 02/21/22 Henny Rosales APRN CONTACT LENS EDGE BUFFER [address] [place] [address] Assigned Heart and Vascular Provider 08/09/[address] [place] [address] 827375 Registered Dietitian Dietitian, Registered 09/02/22 Christiane Rodríguez MD [address] [place] [address] 396 [place] [address] Otolaryngology 11/12/22 Luis A Escobedo MD 420 [facility] 195 [place] [address] Assigned Surgical Provider 11/01/22 11/28/22 Chely Fernandez PA-C [address] [place] [address] 801145 Assigned Surgical Provider 11/29/22 02/06/23 Jing Cadena, ASSISTANT LIBRARIAN EMBROIDERER HAND 420 [facility] 450 [place] [address] Clinical Nurse Specialist Anesthesiology 01/15/23 Radha Lopez [facility] [address] [place] [address] 431625 Pharmacist Pharmacist 01/16/23 Luis A Escobedo MD 420 [facility] 195 [place] [address] Assigned Surgical Provider 02/07/23 04/15/23 Geri Loza PA-C 909 [place] [address] Assigned Surgical Provider 04/16/23 Raina Patterson APRN [facility] [address] [place], [place] 065255 Nurse Practitioner Cardiovascular Disease 05/11/23 documented as of this encounter
--- OUTSIDE RECORDS SUMMARY | 2023-06-30 16:14 | XMS_ITS | Encounter Summary ---
Author Name Unknown Organization [facility] Address [address] [place] [address]39 Care Team Providers Care Compensation Intern Name Role Phone Roderick Morelos MD Unavailable [phone] Magno Wood MD Unavailable [phone] Sophie Ocasio AuD Unavailable [phone] Henny Rosales SDC TEACHER MACHINE PECAN PICKER Unavailable [phone] Unavailable Kaykay Duarte OYSTER FARMER Primary Care Provider [phone] Christiane Rodríguez MD Unavailable [phone] Luis A Escobedo MD Unavailable [phone] Chely FernandezC Unavailable [phone] Jing Cadena APRN HUMAN RESOURCES TRAINEE Unavailable [phone] Radha Lopez [facility] Unavailable [phone] Luis A Escobedo MD Unavailable [phone] Geri LozaC Unavailable [phone] Raina Patterson APRN MACHINE PECAN PICKER Unavailable [phone] Encounter Details Date Type Department Care Team (Late st Contact Info) Description 11/21/2022 MyC Medical Advice [facility] [place] 909 [facility] 4th [place] [address] Geri Loza PA-C [address] [place] [address] 519595 Social History Tobacco Use Types Packs/Day Years [...] documented as of this encounter Care Teams Compensation Intern Relationship Specialty Start Date End Date Kaykay Duarte OYSTER FARMER [address] [place] [address] PCP - General 10/15/22 Roderick Morelos MD [address] [place] 530145 Cardiovascular Disease 02/03/22 Magno Wood MD 420 [facility] 396 [place], [place] 111505 Otolaryngology 02/21/22 Sophie Ocasio AuD 909 [place], [place] 893995 Sessions Clerk Audiology 02/21/22 Henny Rosales APRN MACHINE PECAN PICKER [address] [place] [address] Assigned Heart and Vascular Provider 08/09/[address] [place] [address] 214245 Registered Dietitian Dietitian, Registered 09/02/22 Christiane Rodríguez MD [address] [place] [address] 396 [place] [address] Otolaryngology 11/12/22 Luis A Escobedo MD 420 [facility] 195 [place] [address] Assigned Surgical Provider 11/01/22 11/28/22 Chely Fernandez PA-C [address] [place] [address] 538505 Assigned Surgical Provider 11/29/22 02/06/23 Jing Cadena, SDC TEACHER HUMAN RESOURCES TRAINEE 420 [facility] 450 [place] [address] Clinical Nurse Specialist Anesthesiology 01/15/23 Radha Lopez [facility] [address] [place] [address] 573245 Pharmacist Pharmacist 01/16/23 Luis A Escobedo MD 420 [facility] 195 [place] [address] Assigned Surgical Provider 02/07/23 04/15/23 Geri Loza PA-C 909 [place] [address] Assigned Surgical Provider 04/16/23 Raina Patterson APRN [facility] [address] [place], [place] 483715 Nurse Practitioner Cardiovascular Disease 05/11/23 documented as of this encounter
--- OUTSIDE RECORDS SUMMARY | 2023-06-30 16:14 | XMS_ITS | Encounter Summary ---
Author Name Unknown Organization [employer] Address [address] [place] [address]. [place] [address] Care Team Providers Care Secretary Name Role Phone Roderick Morelos MD Unavailable [phone] Magno Wood MD Unavailable [phone] Sophie Ocasio AuD Unavailable [phone] Henny Rosales TRUCK DRIVER TEAMSTER MAGNETIC LOCATER Unavailable Sharee Negron RD Unavailable Kaykay Duarte NET DEVELOPER Primary Care Provider Christiane Rodríguez MD Unavailable [phone] Chely FernandezC Unavailable Jing Cadena TRUCK DRIVER TEAMSTER STEWARD/STEWARDESS TOURIST CLASS Unavailable Radha Lopez [facility] Unavailable [phone] Luis A Escobedo MD Unavailable Encounter Details Date Type Department Care Team (Late st Contact Info) Description 01/12/2023 Telephone [facility] [place] 909 [facility] [address] 4th [place] [address] Radha Dominguez, RN 420 [facility] 195 [place] [address] Social History Tobacco Use Types [...] encounter Miscellaneous Notes * Telephone Encounter - Moy Estebani - 01/12/2023 11:59 AM CDT General Call Contacts Type Contact Phone/Fax 01/12/2023 11:58 AM CDT Phone (Incoming) Billie Connolly (Self) [phone] (M) Reason for Call: call back What are your questions or concerns: pt would like a call back regarding surg date Could we send this information to you in [place] or would you prefer to receive a [...] documented as of this encounter Care Teams Secretary Relationship Specialty [place] [address] [place] 803777 PCP - General 10/15/22 Roderick Morelos MD [address] [place] 402825 Cardiovascular Disease 02/03/22 Magno Wood MD [address] [place] [address] Otolaryngology 02/21/22 Sophie Ocasio AuD [address] [place] [address] Emergency Spill Response Technician Audiology 02/21/22 Henny Rosales APRN MAGNETIC LOCATER [address] [place] [address] Assigned Heart and Vascular Provider 08/09/[address] [place] [address] 147415 Registered Dietitian Dietitian, Registered 09/02/22 Christiane Rodríguez MD [address] [place] [address] 778745 Otolaryngology 11/12/22 Chely Fernandez PA-C [address] [place] [address] 259005 Assigned Surgical Provider 11/29/22 02/06/23 Jing Cadena APRN STEWARD/STEWARDESS TOURIST CLASS [address] [place] [address] 733265 Clinical Nurse Specialist Anesthesiology 01/15/23 Radha Lopez, [facility] [address] [place] [address] Pharmacist Pharmacist 01/16/23 Luis A Escobedo MD [address] [place] [address] Assigned Surgical Provider 02/07/23 04/15/23 documented as of this encounter
--- OUTSIDE RECORDS SUMMARY | 2023-06-30 16:14 | XMS_ITS | Encounter Summary ---
Author Name Unknown Organization [facility] Address [address] [place] [address] Care Team Providers Care Bobbin Loose End Finder Name Role Phone Roderick Morelos MD Unavailable [phone] Magno Wood MD Unavailable [phone] Sophie Ocasio AuD Unavailable [phone] Henny Rosales SAMPLE CARD MAKER HARNESS PULLER Unavailable [phone] Unavailable Kaykay Duarte CLIENT SUPPORT PROFESSIONAL Primary Care Provider Christiane Rodríguez MD Unavailable [phone] Chely FernandezC Unavailable [phone] Jing Cadena SAMPLE CARD MAKER PROFESSOR OF LEGAL STUDIES Unavailable Radha Lopez [facility] Unavailable [phone] Luis A Escobedo MD Unavailable [phone] Geri LozaC Unavailable [phone] Raina Patterson SAMPLE CARD MAKER HARNESS PULLER Unavailable [phone] Encounter Details Date Type Department Care Team (Late st Contact Info) Description 01/14/2023 [facility] [address] 4th [place] [address] Radha Dominguez, RN 420 [facility] 195 [place] [address] Social History Tobacco Use Types [...] documented as of this encounter Care Teams Bobbin Loose End Finder Relationship Specialty [place] [address] [place] [address] PCP - General 10/15/22 Roderick Morelos MD [address] [place] [address] Cardiovascular Disease 02/03/22 Magno Wood MD 420 [facility] 396 [place], [place] 131305 Otolaryngology 02/21/22 Sophie Ocasio AuD 909 [place], [place] 668075 M1 Armor Crewman Audiology 02/21/22 Henny Rosales, SAMPLE CARD MAKER HARNESS PULLER [address] [place] [address] Assigned Heart and Vascular Provider 08/09/[address] [place] [address] 578745 Registered Dietitian Dietitian, Registered 09/02/22 Christiane Rodríguez MD [address] [place] [address] 396 [place], [place] 450575 Otolaryngology 11/12/22 Chely Fernandez PA-C [address] [place] [address] 230755 Assigned Surgical Provider 11/29/22 02/06/23 Jing Cadena SAMPLE CARD MAKER PROFESSOR OF LEGAL STUDIES [address] [place] [address] 450 [place] [address] Clinical Nurse Specialist Anesthesiology 01/15/23 Radha Lopez, [facility] [address] [place] [address] 166245 Pharmacist Pharmacist 01/16/23 Luis A Escobedo MD 420 [facility] 195 [place], [place] 685865 Assigned Surgical Provider 02/07/23 04/15/23 Geri Loza PA-C [address] [place] [address] 997595 Assigned Surgical Provider 04/16/23 Raina Patterson, SAMPLE CARD MAKER HARNESS PULLER [address] [facility] [address] [place] 184695 Nurse Practitioner Cardiovascular Disease 05/11/23 documented as of this encounter
--- OUTSIDE RECORDS SUMMARY | 2023-06-30 16:14 | XMS_ITS | Encounter Summary ---
Author Name Unknown Organization [facility] Address [address] [place] [address] 10080 Care Team Providers Care Sheet Metal Duct Installer Helper Name Role Phone Roderick Morelos MD Unavailable [phone] Magno Wood MD Unavailable [phone] Sophie Ocasio AuD Unavailable [phone] Henny Rosales SERVICE DESK AGENT FIELD HAULER Unavailable [phone] Unavailable Kaykay Duarte CONVEYOR MECHANIC Primary Care Provider Christiane Rodríguez MD Unavailable [phone] Chely FernandezC Unavailable [phone] Jing Cadena SERVICE DESK AGENT WASTE WATER WORKER Unavailable [phone] Radha Lopez [facility] Unavailable [phone] Luis A Escobedo MD Unavailable [phone] Geri LozaC Unavailable [phone] Raina Patterson SERVICE DESK AGENT FIELD HAULER Unavailable [phone] Encounter Details Date Type Department Care Team (Late st Contact Info) Description 12/04/2022 [facility] [address]th [place] [address] Kang Griffiths Social History Tobacco [...] documented as of this encounter Care Teams Sheet Metal Duct Installer Helper Relationship Specialty [place] [address] [facility] [address] PCP - General 10/15/22 Roderick Morelos MD [address] [place] [address] Cardiovascular Disease 02/03/22 Magno Wood MD 420 [facility] 396 [place], [place] 470205 Otolaryngology 02/21/22 Sophie Ocasio AuD 909 [place], [place] 861675 Correctional Supervisor Lieutenant Audiology 02/21/22 Henny Rosales, SERVICE DESK AGENT FIELD HAULER [address] [place] [address] Assigned Heart and Vascular Provider 08/09/[address] [place] [address] [phone] Registered Dietitian Dietitian, Registered 09/02/22 Christiane Rodríguez MD [address] [place] [address] 396 [place], [place] 070085 Otolaryngology 11/12/22 Chely Fernandez PA-C [address] [place] [address] 422955 Assigned Surgical Provider 11/29/22 02/06/23 Jing Cadena APRN WASTE WATER WORKER [address] [place] [address] 450 [place] [address] Clinical Nurse Specialist Anesthesiology 01/15/23 Radha Lopez, [facility] [address] [place] [address] 230185 Pharmacist Pharmacist 01/16/23 Luis A Escobedo MD 420 [facility] 195 [place], [place] 208105 Assigned Surgical Provider 02/07/23 04/15/23 Geri Loza PA-C [address] [place] [address] 579455 Assigned Surgical Provider 04/16/23 Raina Patterson, SERVICE DESK AGENT FIELD HAULER [address] [place] 979575 Nurse Practitioner Cardiovascular Disease 05/11/23 documented as of this encounter
--- OUTSIDE RECORDS SUMMARY | 2023-06-30 16:14 | XMS_ITS | Encounter Summary ---
Author Name Unknown Organization [facility] Address [address] [place] [address] Care Team Providers Care Director Of Outpatient Services Name Role Phone Roderick Morelos MD Unavailable [phone] Magno Wood MD Unavailable [phone] Sophie Ocasio AuD Unavailable [phone] Henny Rosales DOORMAKER MARINE ELECTRICIAN APPRENTICE Unavailable [phone] Unavailable Kaykay Duarte BOTTOM HOOP DRIVER Primary Care Provider Christiane Rodríguez MD Unavailable [phone] Chely FernandezC Unavailable [phone] Jing Cadena DOORMAKER FOOD AND BEVERAGE COORDINATOR Unavailable Radha Lopez [facility] Unavailable [phone] Luis A Escobedo MD Unavailable [phone] Geri LozaC Unavailable [phone] Raina Patterson DOORMAKER MARINE ELECTRICIAN APPRENTICE Unavailable [phone] Encounter Details Date Type Department Care Team (Late st Contact Info) Description 01/13/2023 [facility]C Medical [facility] Social History Tobacco Use [...] as of this encounter Care Teams Director Of Outpatient Services Relationship Specialty Start Date End Date Kaykay Duarte BOTTOM HOOP DRIVER [address] [place] [address] PCP - General 10/15/22 Roderick Morelos MD [address] [place] [address] Cardiovascular Disease 02/03/22 Magno [place] MD 420 [facility] 396 [place], [place] 07[address]25 Otolaryngology 02/21/22 Sophie Ocasio AuD 909 [place], [place] 652295 [employer] Audiology 02/21/22 Henny Rosales APRN MARINE ELECTRICIAN APPRENTICE [address] [place] [address] Assigned Heart and Vascular Provider 08/09/[address] 909 [place], [place] 102745 Registered Dietitian Dietitian, Registered 09/02/22 Christiane Rodríguez MD 420 [facility] 396 [place], [place] 771525 Otolaryngology 11/12/22 Chely Fernandez PA-C [address] [place] [address] 961075 Assigned Surgical Provider 11/29/22 02/06/23 Jing Cadena APRN FOOD AND BEVERAGE COORDINATOR 420 [facility] 450 [place], [place] 475655 Clinical Nurse Specialist Anesthesiology 01/15/23 Radha Lopez, [facility] [address] [place] [address] 598755 Pharmacist Pharmacist 01/16/23 Luis A Escobedo MD 420 [facility] 195 [place], [place] 604875 Assigned Surgical Provider 02/07/23 04/15/23 Geri Loza PA-C [address] [place] [address] 131155 Assigned Surgical Provider 04/16/23 Raina Patterson APRN MARINE ELECTRICIAN APPRENTICE [address] [place] 655505 Nurse Practitioner Cardiovascular Disease 05/11/23 documented as of this encounter
--- OUTSIDE RECORDS SUMMARY | 2023-06-30 16:14 | XMS_ITS | Encounter Summary ---
Author Name Unknown Organization [place] Address [address] [place] [address] 61017 Care Team Providers Care Chamber Walker Name Role Phone Roderick Morelos MD Unavailable [phone] Magno Wood MD Unavailable [phone] Sophie Ocasio AuD Unavailable [phone] Henny Rosales AGRICULTURAL ECONOMIST FLUSH TESTER Unavailable [phone] Unavailable Kaykay Duarte CHURCH ADMINISTRATOR Primary Care Provider Christiane Rodríguez MD Unavailable [phone] Chely FernandezC Unavailable [phone] Jing Cadena AGRICULTURAL ECONOMIST UNIVERSAL GRINDER OPERATOR Unavailable Radha Lopez [facility] Unavailable Luis A Escobedo MD Unavailable [phone] Geri LozaC Unavailable [phone] Raina Patterson AGRICULTURAL ECONOMIST FLUSH TESTER Unavailable [phone] Encounter Details Date Type Department Care Team (Late st Contact Info) Description 01/15/2023 [facility] [address] [place] [phone] Geri Loza PA-C 9[address] [place], [place] [phone] Social History Tobacco Use Types Packs/Day Years [...] Lopez, PharmD, BCACP Medication Therapy Management Pharmacist [facility] * Telephone Encounter - [...] documented as of this encounter Care Teams Chamber Walker Relationship Specialty [place] [address] [place] [address] PCP - General 10/15/22 Roderick Morelos MD [address] [place] [address] Cardiovascular Disease 02/03/22 Magno Wood MD [address] [place] [address] 206325 Otolaryngology 02/21/22 Sophie Ocasio AuD [address] [place] [address] 630515 Health Policy Nurse Audiology 02/21/22 Henny Rosales APRN FLUSH TESTER [address] [place] [address]108 Assigned Heart and Vascular Provider 08/09/[address] [place] [address] 931935 Registered Dietitian Dietitian, Registered 09/02/22 Christiane Rodríguez MD [address] [place] [address] 293305 Otolaryngology 11/12/22 Chely Fernandez PA-C [address] [place] [address] 30719 Assigned Surgical Provider 11/29/22 02/06/23 Jing Cadena APRN UNIVERSAL GRINDER OPERATOR 420 [facility] 450 [place] [address] Clinical Nurse Specialist Anesthesiology 01/15/23 Radha Lopez, [facility] 909 [place] [address] Pharmacist Pharmacist 01/16/23 Luis A Escobedo MD 420 [facility] 195 [place], [place] 077445 Assigned Surgical Provider 02/07/23 04/15/23 Geri Loza PA-C [address] [place] [address] Assigned Surgical Provider 04/16/23 Raina Patterson APRN FLUSH TESTER [address] [place] 006775 Nurse Practitioner Cardiovascular Disease 05/11/23 documented as of this encounter
--- OUTSIDE RECORDS SUMMARY | 2023-06-30 16:14 | XMS_ITS | Encounter Summary ---
Author Name Unknown Organization [place] Address [address] [place] [address] 6[address] Care Team Providers Care Appraiser Name Role Phone Roderick Morelos MD Unavailable [phone] Magno Wood MD Unavailable [phone] Sophie Ocasio AuD Unavailable [phone] Henny Rosales BURRING MACHINE OPERATOR INSURANCE CODER Unavailable [phone] Unavailable Kaykay Duarte EXECUTIVE DIRECTOR Primary Care Provider [phone] Christiane Rodríguez MD Unavailable [phone] Chely FernandezC Unavailable [phone] Jing Cadena BURRING MACHINE OPERATOR SECURITIES AND REAL ESTATE DIRECTOR Unavailable Radha Lopez [facility] Unavailable [phone] Luis A Escobedo MD Unavailable [phone] Geri LozaC Unavailable [phone] Raina Patterson BURRING MACHINE OPERATOR INSURANCE CODER Unavailable [phone] Encounter Details Date Type Department Care Team (Late st Contact Info) Description 01/21/2023 [facility] [address] [place] [address] Radha Dominguez, RN 420 [facility] 195 [place] [address] Social History Tobacco Use Types [...] documented as of this encounter Care Teams Appraiser Relationship Specialty [place] [address] [place] [address] PCP - General 10/15/22 Roderick Morelos MD [address] [place] [address] Cardiovascular Disease 02/03/22 Magno Wood MD 420 [facility] 396 [place], [place] 048985 Otolaryngology 02/21/22 Sophie Ocasio AuD 909 [place], [place] 964425 School Psychometrist Audiology 02/21/22 Henny Rosales, BURRING MACHINE OPERATOR INSURANCE CODER [address] [place] [address] Assigned Heart and Vascular Provider 08/09/[address] [place] [address] 595965 Registered Dietitian Dietitian, Registered 09/02/22 Christiane Rodríguez MD [address] [place] [address] 396 [place], [place] 133695 Otolaryngology 11/12/22 Chely Fernandez PA-C [address] [place] [address] 837255 Assigned Surgical Provider 11/29/22 02/06/23 Jing Cadena BURRING MACHINE OPERATOR SECURITIES AND REAL ESTATE DIRECTOR [address] [place] [address] 450 [place] [address] Clinical Nurse Specialist Anesthesiology 01/15/23 Radha Lopez, [facility] [address] [place] [address] 587785 Pharmacist Pharmacist 01/16/23 Luis A Escobedo MD 420 [facility] 195 [place], [place] 056485 Assigned Surgical Provider 02/07/23 04/15/23 Geri Loza PA-C [address] [place] [address] 623045 Assigned Surgical Provider 04/16/23 Raina Patterson, BURRING MACHINE OPERATOR INSURANCE CODER [address] [facility] [address] [place] 564345 Nurse Practitioner Cardiovascular Disease 05/11/23 documented as of this encounter
--- OUTSIDE RECORDS SUMMARY | 2023-06-30 16:14 | XMS_ITS | Encounter Summary ---
Author Name Unknown Organization [place] Address [address] [place] [address] 82055 Care Team Providers Care Financial Brokers Name Role Phone Roderick Morelos MD Unavailable [phone] Magno Wood MD Unavailable [phone] Sophie Ocasio AuD Unavailable [phone] Henny Rosales CLIENT SERVICES ACCOUNT MANAGER MIXER WET POUR Unavailable [phone] Unavailable Kaykay Duarte TENTER FEEDER Primary Care Provider Christiane Rodríguez MD Unavailable [phone] Chely FernandezC Unavailable [phone] Jing Cadena CLIENT SERVICES ACCOUNT MANAGER BILLING CUSTOMER SERVICE REPRESENTATIVE Unavailable [phone] Radha Lopez [facility] Unavailable [phone] Luis A Escobedo MD Unavailable [phone] Geri LozaC Unavailable [phone] Raina Patterson CLIENT SERVICES ACCOUNT MANAGER MIXER WET POUR Unavailable [phone] Reason for Visit * Reason Onset Date Comments Call Back 01/15/2023 See note. Encounter Details Date Type Department Care Team (Late st Contact Info) Description 01/15/2023 Telephone [facility] [place] [address] [facility] [address] 4th [place] [address] Luis A Escobedo MD 420 [facility] 195 [place], [place] 890165 Call Back (See note./) Social History Tobacco [...] Monzon - 01/15/2023 3:09 PM CDT Radha Dominguez, SKIP P Bariatric Scheduling Registration Pool; Edgar Rothman; Henny Arguello, SKIP Freire, Billie Dominguez Mohsen is having a sleeve gastrectomy conversion [...] or updates. Please contact Daisy Huynh, clinical laboratory service teacher, if clinic appt slots are not available. Henny, The patient has been informed that you will contact them about the preop class. Thank you! Summer, RN Radha Dominguez, MS, grinder carbon plant Weight Management Nurse Coordinator MyChart messages to Surgery Clinic Wls Nurses - Contact Center Nurse Line and Clinic [phone] documented in this encounter Plan of Treatment [...] documented as of this encounter Care Teams Financial Brokers Relationship Specialty Start Date End Date Kaykay Duarte, TENTER FEEDER [address] [place] [address] PCP - General 10/15/22 Roderick Morelos MD [address] [place], [place] 539375 Cardiovascular Disease 02/03/22 Magno Wood MD [address] [place] [address] 291935 Otolaryngology 02/21/22 Sophie Ocasio AuD [address] [place] [address] 178825 Boiler Operators Supervisor Audiology 02/21/22 Henny Rosales, CLIENT SERVICES ACCOUNT MANAGER MIXER WET POUR [address] [place] [address] Assigned Heart and Vascular Provider 08/09/[address] [place] [address] 91592 Registered Dietitian Dietitian, Registered 09/02/22 Christiane Rodríguez MD 420 [facility] 396 [place], [place] 987355 Otolaryngology 11/12/22 Chely Fernandez PA-C 909 [place], [place] 755495 Assigned Surgical Provider 11/29/22 02/06/23 Jing Cadena APRN BILLING CUSTOMER SERVICE REPRESENTATIVE 420 [facility] 450 [place], [place] 973935 Clinical Nurse Specialist Anesthesiology 01/15/23 Radha Lopez, [facility] 909 [place], [place] 369295 Pharmacist Pharmacist 01/16/23 Luis A Escobedo MD 420 [facility] 195 [place], [place] 097785 Assigned Surgical Provider 02/07/23 04/15/23 Geri Loza PA-C 909 [place], [place] 266275 Assigned Surgical Provider 04/16/23 Raina Patterson, GINA MIXER WET POUR [address] [place] 237945 Nurse Practitioner Cardiovascular Disease 05/11/23 documented as of this encounter
--- OUTSIDE RECORDS SUMMARY | 2023-06-30 16:14 | XMS_ITS | Encounter Summary ---
Author Name Unknown Organization [place] Address [address] [place] [address] 96849 Care Team Providers Care Condenser Setter Name Role Phone Roderick Morelos MD Unavailable [phone] Magno Wood MD Unavailable [phone] Sophie Ocasio AuD Unavailable [phone] Henny Rosales SEWING MACHINE OPERATOR SEMIAUTOMATIC LUMBER PLANER Unavailable [phone] Unavailable Kaykay Duarte OUTSOLE CASER Primary Care Provider Christiane Rodríguez MD Unavailable [phone] Chely FernandezC Unavailable [phone] Jing Cadena SEWING MACHINE OPERATOR SEMIAUTOMATIC CONTROL CLERK HEAD Unavailable Radha Lopez [facility] Unavailable [phone] Luis A Escobedo MD Unavailable [phone] Geri LozaC Unavailable [phone] Raina Patterson SEWING MACHINE OPERATOR SEMIAUTOMATIC LUMBER PLANER Unavailable [phone] Encounter Details Date Type Department Care Team (Late st Contact Info) Description 01/09/2023 [facility] [address] [place] [address] Radha Dominguez, RN 420 [facility] 195 [place] [address] Social History Tobacco Use Types [...] documented as of this encounter Care Teams Condenser Setter Relationship Specialty [place] [address] [place] [address] PCP - General 10/15/22 Roedrick Morelos MD [address] [place] [address] Cardiovascular Disease 02/03/22 Magno Wood MD 420 [facility] 396 [place], [place] 784295 Otolaryngology 02/21/22 Sophie Ocasio AuD 909 [place], [place] 312355 Multisensor Intelligence Officer Audiology 02/21/22 Henny Rosales, SEWING MACHINE OPERATOR SEMIAUTOMATIC LUMBER PLANER [address] [place] [address] Assigned Heart and Vascular Provider 08/09/[address] [place] [address] 761245 Registered Dietitian Dietitian, Registered 09/02/22 Christiane Rodríguez MD [address] [place] [address] 396 [place], [place] 911555 Otolaryngology 11/12/22 Chely Fernandez PA-C [address] [place] [address] 552855 Assigned Surgical Provider 11/29/22 02/06/23 Jing Cadena SEWING MACHINE OPERATOR SEMIAUTOMATIC CONTROL CLERK HEAD [address] [place] [address] 450 [place] [address] Clinical Nurse Specialist Anesthesiology 01/15/23 Radha Lopez, [facility] [address] [place] [address] 222195 Pharmacist Pharmacist 01/16/23 Luis A Escobedo MD 420 [facility] 195 [place], [place] 564945 Assigned Surgical Provider 02/07/23 04/15/23 Geri Loza PA-C [address] [place] [address] 861665 Assigned Surgical Provider 04/16/23 Raina Patterson, SEWING MACHINE OPERATOR SEMIAUTOMATIC LUMBER PLANER [address] [facility] [address] [place] 586505 Nurse Practitioner Cardiovascular Disease 05/11/23 documented as of this encounter
--- OUTSIDE RECORDS SUMMARY | 2023-06-30 16:14 | XMS_ITS | Encounter Summary ---
Author Name Unknown Organization [place] Address [address] [place] [address] Care Team Providers Care Evaluation Analyst Name Role Phone Roderick Morelos MD Unavailable [phone] Magno Wood MD Unavailable [phone] Sophie Ocasio AuD Unavailable [phone] Henny Rosales ADJUNCT POLITICAL SCIENCE INSTRUCTOR PICKING TECH Unavailable [phone] Unavailable Kaykay Duarte DIRECTOR STAGE Primary Care Provider Christiane Rodríguez MD Unavailable [phone] Chely FernandezC Unavailable [phone] Jing Cadena ADJUNCT POLITICAL SCIENCE INSTRUCTOR RIVER GUIDE Unavailable [phone] Radha Lopez [facility] Unavailable [phone] Luis A Escobedo MD Unavailable [phone] Geri LozaC Unavailable [phone] Raina Patterson ADJUNCT POLITICAL SCIENCE INSTRUCTOR PICKING TECH Unavailable [phone] Encounter Details Date Type Department Care Team (Late st Contact Info) Description 01/26/2023 [facility] [address] [place] [address] Henny Arguello RN Social History Tobacco Use [...] documented as of this encounter Care Teams Evaluation Analyst Relationship Specialty Start Date End Date Kaykay Duarte DIRECTOR STAGE [address] [place] [address] PCP - General 10/15/22 Roderick Morelos MD [address] [place] [address] Cardiovascular Disease 02/03/22 Magno Wood MD [address] [place] [address] 846695 Otolaryngology 02/21/22 Sophie Ocasio, Nick [address] [place] [address] 184745 Vice President Of Finance Audiology 02/21/22 Henny Rosales, ADJUNCT POLITICAL SCIENCE INSTRUCTOR PICKING TECH [address] [place] [address] Assigned Heart and Vascular Provider 08/09/[address] [place] [address] 945605 Registered Dietitian Dietitian, Registered 09/02/22 Christiane Rodríguez MD [address] [place] [address] 396 [place], [place] 272215 Otolaryngology 11/12/22 Chely Fernandez PA-C [address] [place] [address] 254255 Assigned Surgical Provider 11/29/22 02/06/23 Jing Cadena APRN RIVER GUIDE [address] [place] [address] 450 [place], [place] 047725 Clinical Nurse Specialist Anesthesiology 01/15/23 Radha Lopez, [facility] [address] [place] [address] 566855 Pharmacist Pharmacist 01/16/23 Luis A Escobedo MD [address] [place] [address] 195 [place], [place] 654015 Assigned Surgical Provider 02/07/23 04/15/23 Geri Loza PA-C [address] [place] [address] 312885 Assigned Surgical Provider 04/16/23 Raina Patterson APRN PICKING TECH [address] [facility] [address] [place], [place] 258515 Nurse Practitioner Cardiovascular Disease 05/11/23 documented as of this encounter
--- OUTSIDE RECORDS SUMMARY | 2023-06-30 16:14 | XMS_ITS | Encounter Summary ---
Author Name Unknown Organization [place] Address [address] [place] [address] 0[address]99 Care Team Providers Care Air Traffic Coordinator Name Role Phone Roderick Morelos MD Unavailable [phone] Magno Wood MD Unavailable [phone] Sophie Ocasio AuD Unavailable [phone] Henny Rosales AIRPORT OPERATIONS DUTY MANAGER COMMERCIAL LINES SALES EXECUTIVE Unavailable [phone] Unavailable Kaykay Duarte PAPERHANGER AND PAINTER Primary Care Provider Christiane Rodríguez MD Unavailable [phone] Chely FernandezC Unavailable [phone] Jing Cadena AIRPORT OPERATIONS DUTY MANAGER MANAGER GAS Unavailable Radha Lopez [facility] Unavailable [phone] Luis A Escobedo MD Unavailable [phone] Geri LozaC Unavailable [phone] Raina Patterson AIRPORT OPERATIONS DUTY MANAGER COMMERCIAL LINES SALES EXECUTIVE Unavailable [phone] Encounter Details Date Type Department Care Team (Late st Contact Info) Description 01/09/2023 [facility] [address] [place] [address] Radha Dominguez, RN 420 [facility] 195 [place] [address] Social History Tobacco Use Types [...] documented as of this encounter Care Teams Air Traffic Coordinator Relationship Specialty [place] [address] [place] [address] PCP - General 10/15/22 Roderick Morelos MD [address] [place] [address] Cardiovascular Disease 02/03/22 Magno Wood MD 420 [facility] 396 [place], [place] 955065 Otolaryngology 02/21/22 Sophie Ocasio AuD 909 [place], [place] 298855 Agricultural Sciences Professor Audiology 02/21/22 Henny Rosales, AIRPORT OPERATIONS DUTY MANAGER COMMERCIAL LINES SALES EXECUTIVE [address] [place] [address] Assigned Heart and Vascular Provider 08/09/[address] [place] [address] 319745 Registered Dietitian Dietitian, Registered 09/02/22 Christiane Rodríguez MD [address] [place] [address] 396 [place], [place] 467815 Otolaryngology 11/12/22 Chely Fernandez PA-C [address] [place] [address] 690725 Assigned Surgical Provider 11/29/22 02/06/23 Jing Cadena AIRPORT OPERATIONS DUTY MANAGER MANAGER GAS [address] [place] [address] 450 [place] [address] Clinical Nurse Specialist Anesthesiology 01/15/23 Radha Lopez, [facility] [address] [place] [address] 498875 Pharmacist Pharmacist 01/16/23 Luis A Escobedo MD 420 [facility] 195 [place], [place] 752395 Assigned Surgical Provider 02/07/23 04/15/23 Geri Loza PA-C [address] [place] [address] 491425 Assigned Surgical Provider 04/16/23 Raina Patterson, AIRPORT OPERATIONS DUTY MANAGER COMMERCIAL LINES SALES EXECUTIVE [address] [facility] [address] [place] 909445 Nurse Practitioner Cardiovascular Disease 05/11/23 documented as of this encounter
--- OUTSIDE RECORDS SUMMARY | 2023-06-30 16:14 | XMS_ITS | Encounter Summary ---
Author Name Unknown Organization [place] Address [address] [place] [address] 14779 Care Team Providers Care Vp Customer Development Name Role Phone Roderick Morelos MD Unavailable [phone] Magno Wood MD Unavailable [phone] Sophie Ocasio AuD Unavailable [phone] Henny Rosales NATIONAL VAN OWNER OPERATOR CAR WASH ATTENDANT Unavailable [phone] Unavailable Kaykay Duarte GAS METER REPAIR SUPERVISOR Primary Care Provider [phone] Christiane Rodríguez MD Unavailable [phone] Chely FernandezC Unavailable [phone] Jing Cadena NATIONAL VAN OWNER OPERATOR COLLEGE DIRECTOR Unavailable +[phone] Radha Lopez [facility] Unavailable [phone] Luis A Escobedo MD Unavailable [phone] Geri LozaC Unavailable [phone] Raina Patterson NATIONAL VAN OWNER OPERATOR CAR WASH ATTENDANT Unavailable [phone] Encounter Details Date Type Department Care Team (Late st Contact Info) Description 01/07/2023 [facility] [address] [place] [phone] [place] Social History Tobacco Use Types Packs/Day Years [...] documented as of this encounter Care Teams Vp Customer Development Relationship Specialty [place] [address] [place] [address] PCP - General 10/15/22 Roderick Morelos MD [address] [place] [address] Cardiovascular Disease 02/03/22 Magno Wood MD [address] [place] [address] 590695 Otolaryngology 02/21/22 Sophie Ocasio, Nick [address] [place] [address] 148775 Bead Preparer Audiology 02/21/22 Henny Rosales APRN CAR WASH ATTENDANT [address] [place] [phone] Assigned Heart and Vascular Provider 08/09/[address] [place] [address] 020625 Registered Dietitian Dietitian, Registered 09/02/22 Christiane Rodríguez MD [address] [place] [address] 396 [place], [place] 684945 Otolaryngology 11/12/22 Chely Fernandez PA-C [address] [place] [address] 848155 Assigned Surgical Provider 11/29/22 02/06/23 Jing Cadena APRN COLLEGE DIRECTOR [address] [place] [address] 450 [place], [place] 838035 Clinical Nurse Specialist Anesthesiology 01/15/23 Radha Lopez, [facility] [address] [place] [address] 613135 Pharmacist Pharmacist 01/16/23 Luis A Escobedo MD [address] [place] [address] 195 [place], [place] 619375 Assigned Surgical Provider 02/07/23 04/15/23 Geri Loza PA-C [address] [place] [address] 360085 Assigned Surgical Provider 04/16/23 Raina Patterson APRN CAR WASH ATTENDANT [address] [facility] [address] [place], [place] 929955 Nurse Practitioner Cardiovascular Disease 05/11/23 documented as of this encounter
--- OUTSIDE RECORDS SUMMARY | 2023-06-30 16:14 | XMS_ITS | Encounter Summary ---
Author Name Unknown Organization [facility] Address [address] [place] [address]67 Care Team Providers Care Transportation Inspector Name Role Phone Roderick Morelos MD Unavailable [phone] Magno Wood MD Unavailable [phone] Sophie Ocasio AuD Unavailable [phone] Henny Rosales EVP GLOBAL PRODUCT LEADERSHIP FISHER PURSE SEINE Unavailable [phone] Unavailable Kaykay Duarte WARP WORKER Primary Care Provider Christiane Rodríguez MD Unavailable [phone] Chely FernandezC Unavailable +[phone] Jing Cadena EVP GLOBAL PRODUCT LEADERSHIP CRYSTAL INSPECTOR Unavailable +[phone] Radha Lopez [facility] Unavailable +[phone] Luis A Escobedo MD Unavailable [phone] Geri LozaC Unavailable +[phone] Raina Patterson EVP GLOBAL PRODUCT LEADERSHIP FISHER PURSE SEINE Unavailable [phone] Encounter Details Date Type Department Care Team (Late st Contact Info) Description 01/12/2023 [facility] Social History Tobacco Use Types Packs/Day [...] as of this encounter Care Teams Transportation Inspector Relationship Specialty Start Date End Date Kaykay Duarte WARP WORKER [address] [place] [address] PCP - General 10/15/22 Roderick Morelos MD [address] [place] [address] Cardiovascular Disease 02/03/22 Magno Wood MD 420 [facility] 396 [place], [place] 329135 Otolaryngology 02/21/22 Sophie Ocasio AuD 909 [place], [place] 852695 Rooming House Operator Audiology 02/21/22 Henny Rosales APRN FISHER PURSE SEINE [address] [place] [id number] Assigned Heart and Vascular Provider 08/09/[address] [place], [place] 177155 Registered Dietitian Dietitian, Registered 09/02/22 Christiane Rodríguez MD 420 [facility] 396 [place], [place] 749185 Otolaryngology 11/12/22 Chely Fernandez PA-C [address] [place] [address] 674085 Assigned Surgical Provider 11/29/22 02/06/23 Jing Cadena APRN CRYSTAL INSPECTOR 420 [facility] 450 [place], [place] 022145 Clinical Nurse Specialist Anesthesiology 01/15/23 Radha Lopez, [facility] [address] [place] [address] 754895 Pharmacist Pharmacist 01/16/23 Luis A Escobedo MD 420 [facility] 195 [place], [place] 142975 Assigned Surgical Provider 02/07/23 04/15/23 Geri Loza PA-C [address] [place] [address] 270825 Assigned Surgical Provider 04/16/23 Raina Patterson APRN FISHER PURSE SEINE [address] [place] 307465 Nurse Practitioner Cardiovascular Disease 05/11/23 documented as of this encounter
--- OUTSIDE RECORDS SUMMARY | 2023-06-30 16:14 | XMS_ITS | Encounter Summary ---
Author Name Unknown Organization [facility] Address [address] [place] [address] Care Team Providers Care Vegetable Farmworker Name Role Phone Roderick Morelos MD Unavailable [phone] Magno Wood MD Unavailable [phone] Sophie Ocasio AuD Unavailable [phone] Henny Rosales IT ARCHITECT WIND TURBINE BLADE REPAIR TECHNICIAN Unavailable [phone] Unavailable Kaykay Duarte ENROLLMENT ADVISOR Primary Care Provider Christiane Rodríguez MD Unavailable [phone] Chely FernandezC Unavailable [phone] Jing Cadena IT ARCHITECT INTERNATIONAL TRAVEL CONSULTANT Unavailable Radha Lopez [facility] Unavailable [phone] Luis A Escobedo MD Unavailable [phone] Geri LozaC Unavailable +[phone] Raina Patterson IT ARCHITECT WIND TURBINE BLADE REPAIR TECHNICIAN Unavailable [phone] Encounter Details Date Type Department Care Team (Late st Contact Info) Description 01/26/2023 [facility] [address] [place] [phone] Geri Loza PA-C 909 [place], [place] 738265 Social History Tobacco Use Types Packs/Day Years [...] 01/26/2023 at 9:59 AM by Tamera Bhardwaj VASCULAR documented in this encounter Plan of Treatment [...] documented as of this encounter Care Teams Vegetable Farmworker Relationship Specialty Start Date End Date Kaykay Duarte, ENROLLMENT ADVISOR [address] [place] [address] PCP - General 10/15/22 Roderick Morelos MD [address] [place] [address] Cardiovascular Disease 02/03/22 Magno Wood MD [address] [place] [address] Otolaryngology 02/21/22 Sophie Ocasio AuD [address] [place] [address] 320075 Air Support Operations Operator Audiology 02/21/22 Henny Rosales APRN WIND TURBINE BLADE REPAIR TECHNICIAN [address] [facility] [address] [place] [address] Assigned Heart and Vascular Provider 08/09/[address] [place] [address] [phone] Registered Dietitian Dietitian, Registered 09/02/22 Christiane Rodríguez MD [address] [place] [address] Otolaryngology 11/12/22 Chely Fernandez PA-C [address] [place] [address] 788775 Assigned Surgical Provider 11/29/22 02/06/23 Jing Cadena APRN INTERNATIONAL TRAVEL CONSULTANT [address] [place] [address] 482475 Clinical Nurse Specialist Anesthesiology 01/15/23 Radha Lopez, [facility] [address] [place] [address]11 Pharmacist Pharmacist 01/16/23 Luis A Escobedo MD [address] [place] [address] 195 [place] [address] Assigned Surgical Provider 02/07/23 04/15/23 Geri Loza PA-C [address] [place] [address]74 Assigned Surgical Provider 04/16/23 Raina Patterson APRN [facility] [address] [place] [address] Nurse Practitioner Cardiovascular Disease 05/11/23 documented as of this encounter
--- OUTSIDE RECORDS SUMMARY | 2023-06-30 16:14 | XMS_ITS | Encounter Summary ---
Author Name Unknown Organization [facility] [place] Address [address] [place] [address]30 Care Team Providers Care Strategy Specialist Name Role Phone Roderick Morelos MD Unavailable [phone] Magno Wood MD Unavailable [phone] Sophie Ocasio AuD Unavailable [phone] Henny Rosales TOURIST HOME KEEPER CORPORATE DEVELOPMENT ANALYST Unavailable [phone] Unavailable Kaykay Duarte FASHION STYLIST Primary Care Provider [phone] Christiane Rodríguez MD Unavailable [phone] Chely FernandezC Unavailable [phone] Jing Cadena TOURIST HOME KEEPER COLLEGE ADMINISTRATOR Unavailable Radha Lopez [facility] Unavailable [phone] Luis A Escobedo MD Unavailable [phone] Geri LozaC Unavailable [phone] Raina Patterson TOURIST HOME KEEPER CORPORATE DEVELOPMENT ANALYST Unavailable [phone] Encounter Details Date Type Department Care Team (Late st Contact Info) Description 02/06/2023 [facility] [address] [place] [phone] [place] Social History Tobacco Use Types Packs/Day Years [...] as of this encounter Care Teams Strategy Specialist Relationship Specialty [place] [address] [place] [address] PCP - General 10/15/22 Roderick Morelos MD [address] [place] [address] Cardiovascular Disease 02/03/22 Magno Wood MD [address] [place] [address] 461515 Otolaryngology 02/21/22 Sophie Ocasio, Nick [address] [place] [address] 299765 Public Relations Officer Audiology 02/21/22 Henny Rosales APRN CORPORATE DEVELOPMENT ANALYST [address] [place] [phone] Assigned Heart and Vascular Provider 08/09/[address] [place] [address] 346855 Registered Dietitian Dietitian, Registered 09/02/22 Christiane Rodríguez MD [address] [place] [address] 396 [place], [place] 098775 Otolaryngology 11/12/22 Chely Fernandez PA-C [address] [place] [address] 466005 Assigned Surgical Provider 11/29/22 02/06/23 Jing Cadena APRN COLLEGE ADMINISTRATOR [address] [place] [address] 450 [place], [place] 400895 Clinical Nurse Specialist Anesthesiology 01/15/23 Radha Lopez, [facility] [address] [place] [address] 405485 Pharmacist Pharmacist 01/16/23 Luis A Escobedo MD [address] [place] [address] 195 [place], [place] 709845 Assigned Surgical Provider 02/07/23 04/15/23 Geri Loza PA-C [address] [place] [address] 998855 Assigned Surgical Provider 04/16/23 Raina Patterson APRN CORPORATE DEVELOPMENT ANALYST [address] [facility] [address] [place], [place] 343885 Nurse Practitioner Cardiovascular Disease 05/11/23 documented as of this encounter
--- OUTSIDE RECORDS SUMMARY | 2023-06-30 16:14 | XMS_ITS | Encounter Summary ---
Author Name Unknown Organization [facility] Address [address] [place] [address] Care Team Providers Care Business Consult Name Role Phone Roderick Morelos MD Unavailable [phone] Magno Wood MD Unavailable [phone] Sophie Ocasio AuD Unavailable [phone] Henny Rosales SECURITY ESCORT OPTOMETRIST ASSISTANT Unavailable [phone] Unavailable Kaykay Duarte CREATIVE SERVICES PRODUCER Primary Care Provider Christiane Rodríguez MD Unavailable [phone] Chely FernandezC Unavailable [phone] Jing Cadena SECURITY ESCORT HEAVY TRUCK DRIVER Unavailable Radha Lopez [facility] Unavailable [phone] Luis A Escobedo MD Unavailable [phone] Geri LozaC Unavailable [phone] Raina Patterson SECURITY ESCORT OPTOMETRIST ASSISTANT Unavailable [phone] Encounter Details Date Type Department Care Team (Late st Contact Info) Description 01/21/2023 [facility] [address] [place] [address] Radha Dominguez, RN 420 [facility] 195 [place] [address] Social History Tobacco Use Types [...] as of this encounter Care Teams Business Consult Relationship Specialty [place] [address] [place] [address] PCP - General 10/15/22 Roderick Morelos MD [address] [place] [address] Cardiovascular Disease 02/03/22 Magno Wood MD 420 [facility] 396 [place], [place] 640555 Otolaryngology 02/21/22 Sophie Ocasio AuD 909 [place], [place] 675865 Heel Dipper Audiology 02/21/22 Henny Rosales, SECURITY ESCORT OPTOMETRIST ASSISTANT [address] [place] [address] Assigned Heart and Vascular Provider 08/09/[address] [place] [address] 840495 Registered Dietitian Dietitian, Registered 09/02/22 Christiane Rodríguez MD [address] [place] [address] 396 [place], [place] 196545 Otolaryngology 11/12/22 Chely Fernandez PA-C [address] [place] [address] 141445 Assigned Surgical Provider 11/29/22 02/06/23 Jing Cadena SECURITY ESCORT HEAVY TRUCK DRIVER [address] [place] [address] 450 [place] [address] Clinical Nurse Specialist Anesthesiology 01/15/23 Radha Lopez, [facility] [address] [place] [address] 088265 Pharmacist Pharmacist 01/16/23 Luis A Escobedo MD 420 [facility] 195 [place], [place] 865055 Assigned Surgical Provider 02/07/23 04/15/23 Geri Loza PA-C [address] [place] [address] 090075 Assigned Surgical Provider 04/16/23 Raina Patterson, SECURITY ESCORT OPTOMETRIST ASSISTANT [address] [facility] [address] [place] 674005 Nurse Practitioner Cardiovascular Disease 05/11/23 documented as of this encounter
--- OUTSIDE RECORDS SUMMARY | 2023-06-30 16:14 | XMS_ITS | Encounter Summary ---
Author Name Unknown Organization [facility] Address [address] [place] [address]83 Care Team Providers Care Customer Advisor Name Role Phone Roderick Morelos MD Unavailable [phone] Magno Wood MD Unavailable [phone] Sophie Ocasio AuD Unavailable [phone] Henny Rosales TELEPHONE CLERK VETERAN APPEALS REVIEWER Unavailable [phone] Unavailable Kaykay Duarte DRUM REEL CUTTER Primary Care Provider Christiane Rodríguez MD Unavailable [phone] Chely FernandezC Unavailable [phone] Jing Cadena TELEPHONE CLERK INTERIM CONTROLLER Unavailable [phone] Radha Lopez [facility] Unavailable [phone] Luis A Escobedo MD Unavailable [phone] Geri LozaC Unavailable [phone] Raina Patterson TELEPHONE CLERK VETERAN APPEALS REVIEWER Unavailable [phone] Encounter Details Date Type Department Care Team (Late st Contact Info) Description 01/14/2023 [facility] [address] [place] [address] Radha Dominguez, RN 420 [facility] 195 [place] [address] Social History Tobacco Use Types [...] documented as of this encounter Care Teams Customer Advisor Relationship Specialty [place] [address] [place] [address] PCP - General 10/15/22 Roderick Morelos MD [address] [place] [address] Cardiovascular Disease 02/03/22 Magno Wood MD 420 [facility] 396 [place], [place] 891335 Otolaryngology 02/21/22 Sophie Ocasio AuD 909 [place], [place] 409645 Gravel Weigher Audiology 02/21/22 Henny Rosales, TELEPHONE CLERK VETERAN APPEALS REVIEWER [address] [place] [address] Assigned Heart and Vascular Provider 08/09/[address] [place] [address] 778125 Registered Dietitian Dietitian, Registered 09/02/22 Christiane Rodríguez MD [address] [place] [address] 396 [place], [place] 401115 Otolaryngology 11/12/22 Chely Fernandez PA-C [address] [place] [address] 381615 Assigned Surgical Provider 11/29/22 02/06/23 Jing Cadena TELEPHONE CLERK INTERIM CONTROLLER [address] [place] [address] 450 [place] [address] Clinical Nurse Specialist Anesthesiology 01/15/23 Radha Lopez, [facility] [address] [place] [address] 037745 Pharmacist Pharmacist 01/16/23 Luis A Escobedo MD 420 [facility] 195 [place], [place] 860075 Assigned Surgical Provider 02/07/23 04/15/23 Geri Loza PA-C [address] [place] [address] 780885 Assigned Surgical Provider 04/16/23 Raina Patterson, TELEPHONE CLERK VETERAN APPEALS REVIEWER [address] [facility] [address] [place] 724455 Nurse Practitioner Cardiovascular Disease 05/11/23 documented as of this encounter
--- OUTSIDE RECORDS SUMMARY | 2023-06-30 16:14 | XMS_ITS | Encounter Summary ---
Author Name Unknown Organization [facility] Address [address] [place] [address] Care Team Providers Care Executive Vice President Name Role Phone Roderick Morelos MD Unavailable [phone] Magno Wood MD Unavailable [phone] Sophie Ocasio AuD Unavailable [phone] Henny Rosales MILL HAND AUTOMOTIVE POWER ELECTRONICS ENGINEER Unavailable [phone] Unavailable Kaykay Duarte FRUIT PRESS OPERATOR Primary Care Provider [phone] Christiane Rodríguez MD Unavailable [phone] Luis A Escobedo MD Unavailable [phone] Chely FernandezC Unavailable [phone] Jing Cadena APRN MACHINE OPERATOR PICKER Unavailable +[phone] Radha Lopez [facility] Unavailable [phone] Luis A Escobedo MD Unavailable [phone] Geri LozaC Unavailable [phone] Raina Patterson APRN AUTOMOTIVE POWER ELECTRONICS ENGINEER Unavailable [phone] Encounter Details Date Type Department Care Team (Late st Contact Info) Description 11/03/2022 [facility] [place] [address] [facility] 4th [place] [address] Kang Griffiths Social History Tobacco [...] documented as of this encounter Care Teams Executive Vice President Relationship Specialty [place] [address] [place] [address] [place] [address] PCP - General 10/15/22 Roderick Morelos MD [address] [place] [address] Cardiovascular Disease 02/03/22 Magno Wood MD [address] [place] [address] 396 [place], [place] 789065 Otolaryngology 02/21/22 Sophie Ocasio, AuD [address] [place] [address] 281615 Supervisor Rework Audiology 02/21/22 Henny Rosales APRN AUTOMOTIVE POWER ELECTRONICS ENGINEER [address] [place] [address] Assigned Heart and Vascular Provider 08/09/[address] [place] [address] Registered Dietitian Dietitian, Registered 09/02/22 Christiane Rodríguez MD [address] [place] [address] 396 [place], [place] 218695 Otolaryngology 11/12/22 Luis A Escobedo MD [address] [place] [address] 195 [place], [place] 889745 Assigned Surgical Provider 11/01/22 11/28/22 Chely Fernandez PA-C [address] [place] [address] 065655 Assigned Surgical Provider 11/29/22 02/06/23 Jing Cadena APRN MACHINE OPERATOR PICKER [address] [place] [address] 450 [place], [place] 489015 Clinical Nurse Specialist Anesthesiology 01/15/23 Radha Lopez [facility] [address] [place] [address] 476545 Pharmacist Pharmacist 01/16/23 Luis A Escobedo MD [address] [place] [address] 195 [place], [place] 204865 Assigned Surgical Provider 02/07/23 04/15/23 Geri Loza PA-C 9 [place], [place] 239105 Assigned Surgical Provider 04/16/23 Raina Patterson APRN CNP [address] [place] [address] Nurse Practitioner Cardiovascular Disease 05/11/23 documented as of this encounter
--- OUTSIDE RECORDS SUMMARY | 2023-06-30 16:15 | XMS_ITS | Encounter Summary ---
Author Name Unknown Organization [facility] Address [address] [place] [address] Care Team Providers Care Skin Care Technician Name Role Phone Roderick Morelos MD Unavailable [phone] Magno Wood MD Unavailable [phone] Sophie Ocasio Unavailable [phone] Henny Rosales OPERATIONAL COMMUNICATION CHIEF OFFSET PROOF PRESS OPERATOR Unavailable [phone] [facility] Primary Care Pr ovider Sharee Negron RD Unavailable Kaykay Duarte DRY CHAIN OPERATOR Primary Care Provider [phone] Christiane Rodríguez MD Unavailable [phone] Luis A Escobedo MD Unavailable +[phone] Chely Fernandez PA-C Unavailable +[phone] Jing Cadena OPERATIONAL COMMUNICATION CHIEF BLUEPRINT ENGINEER Unavailable [phone] Radha Lopez [facility] Unavailable [phone] Luis A Escobedo MD Unavailable [phone] Geri Loza PAEddaC Unavailable [phone] Raina Patterson OPERATIONAL COMMUNICATION CHIEF OFFSET PROOF PRESS OPERATOR Unavailable [phone] Encounter Details Date Type Department Care Team (Late st Contact Info) Description 09/02/2022 [facility] [address] [place] [address] Kang Griffiths Social History Tobacco [...] on filedocumented in this encounter Care Teams Skin Care Technician Relationship Specialty Start Date End Date [place] [address] [place] [address] PCP - General 08/19/22 10/14/22 Kaykay Duarte NP [address] [place] [address] [place] [address] PCP - General 10/15/22 Roderick Morelos MD [address] [place], [place] 559495 Cardiovascular Disease 02/03/22 Magno Wood MD [address] [place] [address] 396 [place], [place] 105455 Otolaryngology 02/21/22 Sophie Ocasio, AuD [address] [place] [address] 110[address] Public Policy Mediator Audiology 02/21/22 Henny Rosales, OPERATIONAL COMMUNICATION CHIEF OFFSET PROOF PRESS OPERATOR [address] [place] [address] Assigned Heart and Vascular Provider 08/09/[address] [place] [address] 850255 Registered Dietitian Dietitian, Registered 09/02/22 Christiane Rodríguez MD [address] [place] [address] 396 [place], [place] 054385 Otolaryngology 11/12/22 Luis A Escobedo MD [address] [place] [address] 093625 Assigned Surgical Provider 11/01/22 11/28/22 Chely Fernandez PA-C [address] [place] [address] 600585 Assigned Surgical Provider 11/29/22 02/06/23 Jing Cadena, OPERATIONAL COMMUNICATION CHIEF BLUEPRINT ENGINEER [address] [place] [address] 450 [place], [place] 226595 Clinical Nurse Specialist Anesthesiology 01/15/23 Radha Lopez [facility] [address] [place] [address] 111805 Pharmacist Pharmacist 01/16/23 Luis A Escobedo MD [address] [place] [address] 195 [place] [address] Assigned Surgical Provider 02/07/23 04/15/23 Geri Loza PA-C 9 [place] [address] Assigned Surgical Provider 04/16/23 Raina Patterson APRN [facility] [address] [facility] [address] [place] [address] Nurse Practitioner Cardiovascular Disease 05/11/23 documented as of this encounter
--- OUTSIDE RECORDS SUMMARY | 2023-06-30 16:15 | XMS_ITS | Encounter Summary ---
Author Name Unknown Organization [place] Address [address] [place] [address] Care Team Providers Care Police Officer Crime Prevention Name Role Phone Roderick Morelos MD Unavailable [phone] aMgno Wood MD Unavailable [phone] Sophie Ocasio Unavailable [phone] Henny Rosales PHOTO GRAPHICS LIBRARIAN SUPERVISING EDITOR TRAILER Unavailable +[phone] [facility] Primary Care Pr ovider Sharee Negron RD Unavailable Kaykay Duarte WOOD CUT ENGRAVER Primary Care Provider [phone] Christiane Rodríguez MD Unavailable [phone] Luis A Escobedo MD Unavailable +[phone] Chely Fernandez PA-C Unavailable +[phone] Jing Cadena PHOTO GRAPHICS LIBRARIAN PROPERTY STAFF ACCOUNTANT Unavailable + [phone] Radha Lopez [facility] Unavailable +[phone] Luis A Escobedo MD Unavailable [phone] Geri Loza PAEddaC Unavailable [phone] Raina Patterson PHOTO GRAPHICS LIBRARIAN SUPERVISING EDITOR TRAILER Unavailable +[phone] Encounter Details Date Type Department Care Team (Late st Contact Info) Description 09/15/2022 MyC Medical Advice [facility] [address] 4th [place] [address] Maria Guadalupe Wolfe Social History Tobacco Use [...] on filedocumented in this encounter Care Teams Police Officer Crime Prevention Relationship Specialty Start Date End Date Clinic, [facility] [place] [address] [place] [address] PCP - General 08/19/22 10/14/22 Kaykay Duarte, WOOD CUT ENGRAVER [address] [place] [address] PCP - General 10/15/22 Roderick Morelos MD [address] [place], [place] 813785 Cardiovascular Disease 02/03/22 Magno Wood MD [address] [place] [address] 723115 Otolaryngology 02/21/22 Sophie Ocasio AuD [address] [place] [address] 603265 Emergency Planning And Response Manager Audiology 02/21/22 Henny Rosales, PHOTO GRAPHICS LIBRARIAN SUPERVISING EDITOR TRAILER [address] [place] [address] Assigned Heart and Vascular Provider 08/09/[address] [place] [address] Registered Dietitian Dietitian, Registered 09/02/22 Christiane Rodríguez MD 420 [facility] 396 [place], [place] 562725 Otolaryngology 11/12/22 Luis A Escobedo MD [address] [place] [address] 195 [place], [place] 903215 Assigned Surgical Provider 11/01/22 11/28/22 Chely Fernandez PA-C [address] [place] [address] 523995 Assigned Surgical Provider 11/29/22 02/06/23 Jing Cadena, PHOTO GRAPHICS LIBRARIAN PROPERTY STAFF ACCOUNTANT [address] [place] [address] 450 [place], [place] 872965 Clinical Nurse Specialist Anesthesiology 01/15/23 Radha Lopez, [facility] [address] [place] [address] [phone] Pharmacist Pharmacist 01/16/23 Luis A Escobedo MD [address] [place] [address] 195 [place], [place] 755855 Assigned Surgical Provider 02/07/23 04/15/23 Geri Loza PA-C 909 [place] [address] Assigned Surgical Provider 04/16/23 Raina Patterson APRN SUPERVISING EDITOR TRAILER [address] [place] [address] Nurse Practitioner Cardiovascular Disease 05/11/23 documented as of this encounter
--- OUTSIDE RECORDS SUMMARY | 2023-06-30 16:15 | XMS_ITS | Encounter Summary ---
Author Name Unknown Organization [place] Address [address] [place] [address] Care Team Providers Care Freight Handler Name Role Phone Roderick Morelos MD Unavailable [phone] Magno Wood MD Unavailable [phone] Sophie Ocasio AuD Unavailable [phone] Henny Rosales DATA CENTER OPERATOR STONE LAYOUT MARKER Unavailable [phone] Unavailable Kaykay Duarte DISTANCE LEARNING UNIT LEADER Primary Care Provider [phone] Christiane Rodríguez MD Unavailable +[phone] Luis A Escobedo MD Unavailable [phone] Chely FernandezC Unavailable [phone] Jing Cadena APRN MEDICAL RECORD ASSISTANT Unavailable +[phone] Radha Lopez [facility] Unavailable +[phone] Luis A Escobedo MD Unavailable [phone] Geri LozaC Unavailable [phone] Raina Patterson APRN STONE LAYOUT MARKER Unavailable [phone] Encounter Details Date Type Department Care Team (Late st Contact Info) Description 10/23/2022 External Order Results [facility] [address] [place] [address] Outside, Provider Class 3 severe obesity with [...] SPECIMEN / Unknown 10/23/2022 11:20 AM CDT Idania SMITH PFT - 10/24/2022 8:49 AM CDT Verified by Quinn Wetzel on 10/24/2022. Mary Jo Hjelm PA-C LAB - BLOOD ORDERAB LES BREEZE PFT NON-INTERFACED (ONBASE SCANS) * (ABNORMAL) CBC with Platelets & Differential (10/23/2022 11:20 AM CDT) WBC Count (External) 6.7 3.5 - 10.5 [...] Verified by Quinn Wetzel on 10/24/2022. Geri Gaytan Dago [facility] - BLOOD ORDERAB LES LUIS PFNikole NON-INTERFACED (ONBASE SCANS) documented in this encounter Visit Diagnoses Diagnosis Class 3 severe obesity with serious comorbidity and body mass index (BMI) of 45.0 to 49.9 in adult, unspecified obesity type (H) documented in this encounter Additional Health Concerns Problem Noted Date Diagnosed Date BRIAN PATHWAY SURGERY IS SCHEDULED 10/15/2022 documented as of this encounter Care Teams Freight Handler Relationship Specialty [place] [address] [place] [address] [place] 0[address]67 PCP - General 10/15/22 Roderick Morelos MD [address] [place] 734225 Cardiovascular Disease 02/03/22 Magno Wood MD [address] 507735 Otolaryngology 02/21/22 Sophie Ocasio AuD 909 [place], [place] 947585 Senior Executive Compensation Analyst Audiology 02/21/22 Henny Rosales APRN STONE LAYOUT MARKER [address] [place] [address] Assigned Heart and Vascular Provider 08/09/[address] [place] [address] 187365 Registered Dietitian Dietitian, Registered 09/02/22 Christiane Rodríguez MD [address] [place] [address] 396 [place], [place] 736265 Otolaryngology 11/12/22 Luis A Escobedo MD [address] [place] [address] 591585 Assigned Surgical Provider 11/01/22 11/28/22 Chely Fernandez PA-C [address] [place] [address] 327845 Assigned Surgical Provider 11/29/22 02/06/23 Jing Cadena, DATA CENTER OPERATOR MEDICAL RECORD ASSISTANT [address] [place] [address] 746065 Clinical Nurse Specialist Anesthesiology 01/15/23 Radha Lopez, [facility] [address] [place] [address] 261775 Pharmacist Pharmacist 01/16/23 Luis A Escobedo MD [address] [place] [address] 175405 Assigned Surgical Provider 02/07/23 04/15/23 Geri Loza PA-C [address] [place] [address] 620735 Assigned Surgical Provider 04/16/23 Raina Patterson APRN [facility] [address] [place] [address] Nurse Practitioner Cardiovascular Disease 05/11/23 documented as of this encounter
--- OUTSIDE RECORDS SUMMARY | 2023-06-30 16:15 | XMS_ITS | Encounter Summary ---
Author Name Unknown Organization [place] Address [address] [place] [address] Care Team Providers Care Senior J2Ee Developer Name Role Phone Roderick Morelos MD Unavailable [phone] Magno Wood MD Unavailable [phone] Sophie Ocasio Unavailable [phone] Henny Rosales CHIROPRACTIC ASSISTANT FORESTRY HUNTER Unavailable [phone] [facility] Primary Care Pr ovider Sharee Negron RD Unavailable Kaykay Duarte WASHER CARCASS Primary Care Provider [phone] Christiane Rodríguez MD Unavailable [phone] Luis A Escobedo MD Unavailable +[phone] Chely Fernandez PA-C Unavailable +[phone] Jing Cadean CHIROPRACTIC ASSISTANT LEGAL COMPLIANCE OFFICER Unavailable + [phone] Radha Lopez [facility] Unavailable [phone] Luis A Escobedo MD Unavailable [phone] Geri Loza PAEddaC Unavailable [phone] Raina Patterson CHIROPRACTIC ASSISTANT FORESTRY HUNTER Unavailable [phone] Encounter Details Date Type Department Care Team (Late st Contact Info) Description 09/02/2022 MyC Medical Advice [facility] Weight Management Clinic [address] 4th [place] [address] Geri Loza PA-C 909 [place], [place] 917345 Social History Tobacco Use Types Packs/Day Years [...] filedocumented in this encounter Care Teams Senior J2Ee Developer Relationship Specialty Start Date End Date Clinic, [place] [address] [place] [address] PCP - General 08/19/22 10/14/22 Kaykay Duarte NP [address] [place] [address] [place] 260767 PCP - General 10/15/22 Roderick Morelos MD [address] [place], [place] 467165 Cardiovascular Disease 02/03/22 Magno Wood MD [address] [place] [address] 396 [place], [place] 27155455 Otolaryngology 02/21/22 Sophie Ocasio AuD [address] [place] [address] 233665 Electronics Mechanic Apprentice Audiology 02/21/22 Henny Rosales APRN FORESTRY HUNTER [address] [place] [address] Assigned Heart and Vascular Provider 08/09/[address] [place] [address] Registered Dietitian Dietitian, Registered 09/02/22 Christiane Rodríguez MD [address] [place] [address] 396 [place] [address] Otolaryngology 11/12/22 Luis A Escobedo MD [address] [place] [address] Assigned Surgical Provider 11/01/22 11/28/22 Chely Fernandez PA-C [address] [place] [address] 823535 Assigned Surgical Provider 11/29/22 02/06/23 Jing Cadena APRN LEGAL COMPLIANCE OFFICER [address] [place] [address] 450 [place] [address] Clinical Nurse Specialist Anesthesiology 01/15/23 Radha Lopez, [facility] [address] [place] [address] Pharmacist Pharmacist 01/16/23 Luis A Escobedo MD 420 [facility] 195 [place], [place] 878945 Assigned Surgical Provider 02/07/23 04/15/23 Geri Loza PA-C 909 [place], [place] 912885 Assigned Surgical Provider 04/16/23 Raina Patterson APRN FORESTRY HUNTER [address] [place], [place] 854665 Nurse Practitioner Cardiovascular Disease 05/11/23 documented as of this encounter
--- OUTSIDE RECORDS SUMMARY | 2023-06-30 16:15 | XMS_ITS | Encounter Summary ---
Author Name Unknown Organization [place] Address [address] [place] [address] Care Team Providers Care Dictaphone Mechanic Name Role Phone Roderick Morelos MD Unavailable [phone] Magno Wood MD Unavailable [phone] Sophie Ocasio AuD Unavailable [phone] Henny Rosales FIELD HUMAN RESOURCES MANAGER BOBBIN MARKER Unavailable [phone] [facility] Primary Care Pr ovider Sharee Negron RD Unavailable Kaykay Duarte TYPE MAPPER Primary Care Provider Christiane Rodríguez MD Unavailable +[phone] Luis A Escobedo MD Unavailable +[phone] Chely Fernandez PA-C Unavailable +[phone] Jing Cadena FIELD HUMAN RESOURCES MANAGER JAVA SPRING DEVELOPER Unavailable [phone] Radha Lopez [facility] Unavailable [phone] Luis A Escobedo MD Unavailable +[phone] Encounter Details Date Type Department Care Team (Late st Contact Info) Description 09/03/2022 [facility] General Surgery [place] [address]49 [facility] 4th [place] [address] Luis A Escobedo MD 420 [facility] 195 [place], [place] 684395 Social History Tobacco Use Types Packs/Day Years [...] on filedocumented in this encounter Care Teams Dictaphone Mechanic Relationship Specialty Start Date End Date [place], [place] [address] [facility] [place] [address] PCP - General 08/19/22 10/14/22 Kaykay [place]arte [place] [address] [place] [address] [place] [address] PCP - General 10/15/22 Roderick Morelos MD [address] [place] [address] Cardiovascular Disease 02/03/22 Magno Wood MD [address] [place] [address] 396 [place], [place] 358555 Otolaryngology 02/21/22 Sophie Ocasio AuD [address] [place] [address] 472105 Toll Booth Operator Audiology 02/21/22 Henny Rosales APRN BOBBIN MARKER [address] [place] [address] Assigned Heart and Vascular Provider 08/09/[address] [place] [address] 809625 Registered Dietitian Dietitian, Registered 09/02/22 Christiane Rodríguez MD [address] [place] [address] 594975 Otolaryngology 11/12/22 Luis A Escobedo MD [address] [place] [address] 872715 Assigned Surgical Provider 11/01/22 11/28/22 Chely Fernandez PA-C [address] [place] [address] 142455 Assigned Surgical Provider 11/29/22 02/06/23 iJng Cadena APRN JAVA SPRING DEVELOPER [address] [place] [address] 446145 Clinical Nurse Specialist Anesthesiology 01/15/23 Radha Lopez [facility] [address] [place] [address] 871775 Pharmacist Pharmacist 01/16/23 Luis A Escobedo MD 420 [facility] 195 [place], [place] 91459455 Assigned Surgical Provider 02/07/23 04/15/23 documented as of this encounter
--- OUTSIDE RECORDS SUMMARY | 2023-06-30 16:15 | XMS_ITS | Encounter Summary ---
Author Name Unknown Organization [place] Address [address] [place] [address] Care Team Providers Care Township Supervisor Name Role Phone Roderick Morelos MD Unavailable [phone] Magno Wood MD Unavailable [phone] Sophie Ocasio Unavailable [phone] Henny Rosales MOLECULAR PHYSICIST JAIL KEEPER Unavailable [phone] [facility] Primary Care Pr ovider Sharee Negron RD Unavailable Kaykay Duarte VASCULAR TECHNOLOGIST SONOGRAPHER Primary Care Provider [phone] Christiane Rodríguez MD Unavailable [phone] Luis A Escobedo MD Unavailable +[phone] Chely FernandezC Unavailable [phone] Jing Cadena MOLECULAR PHYSICIST CRA Unavailable + [phone] Radha Lopez [facility] Unavailable [phone] Luis A Escobedo MD Unavailable +[phone] Geri Loza PA-C Unavailable [phone] Raina Patterson MOLECULAR PHYSICIST JAIL KEEPER Unavailable [phone] Reason for Visit * Reason Onset Date Comments Prior Auth - Medication 09/03/2022 Orlistat -PA DENIED Encounter Details Date Type Department Care Team (Late st Contact Info) Description 09/03/2022 Telephone [facility] Management [facility] [address] [place] [address] Geri Loza PA-C 909 [place], [place] 301255 Prior Auth - Medication (Orlistat-PA DENIED ) [...] encounter Miscellaneous Notes * Telephone Encounter - Her Terrance - 09/09/2022 9:21 AM CDT Images from the original note were not included. PRIOR AUTHORIZATION DENIED Medication: Orlistat-PA DENIED Denial Date: 09/08/2022 Denial Rational: Insurance states that patient must tried/failed Contrave, Saxenda, Wegovy. Appeal Information: * Telephone Encounter - Terrance - 09/08/2022 10:24 AM CDT Images from the original note were not included. Central Prior Authorization Team PA Initiation Medication: Orlistat Insurance Company: [employer] - Pharmacy Filling the Rx: [id number] - [place] - [phone] [place] Filling Pharmacy Filling Pharmacy Fax: Start Date: [...] ?? Gastric sleeve was completed 08/09/[address] [facility] [address] Barillas. Starting weight 338lb, BMI 56.25. She felt that instantly did not see expected weight loss results. Per chart review had lost 8lbsby 3 months post op and has followed up with [facility] since. She has lost 38lbs since surgery, andhas been able maintain weight loss of 305lbs for many years. However, continues to feel that is inadequet weight loss and wanted to discuss a conversion to RYGB today. Insurance Name: Insurance ID: Pharmacy Information (if different than what is on RX) Name: [facility][id number] - [place] [id number] [place] * Telephone Encounter - Rowena Small - 09/03/2022 8:44 AM CDT Reason for Call: Prior Auth Detailed comments: Pt states [facility] said a PA is required for [...] on filedocumented in this encounter Care Teams Township Supervisor Relationship Specialty Start Date End Date Clinic, [place] [place] [address] [place] [address] PCP - General 08/19/22 10/14/22 Kaykay Duarte VASCULAR TECHNOLOGIST SONOGRAPHER [address] [place] [address] PCP - General 10/15/22 Roderick Morelos MD [address] [place] [address] Cardiovascular Disease 02/03/22 Magno Wood MD [address] [place] [address] 396 [place], [place] 338435 Otolaryngology 02/21/22 Sophie Ocasio AuD [address] [place] [address] 072815 Oven Press Tender Audiology 02/21/22 Henny Rosales APRN JAIL KEEPER [address] [place] [address] Assigned Heart and Vascular Provider 08/09/[address] [place] [address] 536875 Registered Dietitian Dietitian, Registered 09/02/22 Christiane Rodríguez MD 420 [facility] 396 [place], [place] 115095 Otolaryngology 11/12/22 Luis A Escobedo MD 420 [facility] 195 [place], [place] 196525 Assigned Surgical Provider 11/01/22 11/28/22 Chely Fernandez PA-C [address] [place] [address] 952745 Assigned Surgical Provider 11/29/22 02/06/23 Jing Cadena APRN CRA 420 [facility] 450 [place], [place] 433355 Clinical Nurse Specialist Anesthesiology 01/15/23 Radha Lopez, [facility] [address] [place] [address] 144045 Pharmacist Pharmacist 01/16/23 Luis A Escobedo MD 420 [facility] 195 [place], [place] 882095 Assigned Surgical Provider 02/07/23 04/15/23 Geri Loza PA-C 909 [place], [place] 299715 Assigned Surgical Provider 04/16/23 Raina Patterson APRN JAIL KEEPER [address] [place] [address] Nurse Practitioner Cardiovascular Disease 05/11/23 documented as of this encounter
--- OUTSIDE RECORDS SUMMARY | 2023-06-30 16:15 | XMS_ITS | Encounter Summary ---
Author Name Unknown Organization [place] Address [address] [place] [address] Care Team Providers Care Raw Scales Operator Name Role Phone Roderick Morelos MD Unavailable [phone] Magno Wood MD Unavailable [phone] Sophie Ocasio AuD Unavailable +[phone] Henny Rosales SNUFF GRINDER KNIT GOODS MENDER Unavailable [phone] Unavailable Kaykay Duarte LABORER DEMOLITION Primary Care Provider [phone] Christiane Rodríguez MD Unavailable [phone] Luis A Escobedo MD Unavailable +[phone] Chely FernandezC Unavailable [phone] Jing Cadena APRN FISH HATCHERY SUPERVISOR Unavailable +[phone] Radha Lopez [facility] Unavailable [phone] Luis A Escobedo MD Unavailable [phone] Geri LozaC Unavailable [phone] Raina Patterson APRN KNIT GOODS MENDER Unavailable +[phone] Encounter Details Date Type Department Care Team (Late st Contact Info) Description 10/17/[address] [facility] Weight Management [facility] [place] [address] [facility] 4th [place] [address] Henny Arguello RN Social History [...] documented as of this encounter Care Teams Raw Scales Operator Relationship Specialty [place] [address] [place] [address] PCP - General 10/15/22 Roderick Morelos MD [address] [place] [address] Cardiovascular Disease 02/03/22 Magno Wood MD [address] [place] [address] 396 [place], [place] 956055 Otolaryngology 02/21/22 Sophie Ocasio, AuD [address] [place] [address] 284665 Heating And Cooling Systems Engineer Audiology 02/21/22 Henny Rosales APRN KNIT GOODS MENDER [address] [place] [address] Assigned Heart and Vascular Provider 08/09/[address] [place] [address] 333385 Registered Dietitian Dietitian, Registered 09/02/22 Christiane Rodríguez MD [address] [place] [address] 396 [place], [place] 173485 Otolaryngology 11/12/22 Luis A Escobedo MD [address] [place] [address] 586185 Assigned Surgical Provider 11/01/22 11/28/22 Chely Fernandez PA-C [address] [place] [address] 238265 Assigned Surgical Provider 11/29/22 02/06/23 Jing Cadena APRN FISH HATCHERY SUPERVISOR [address] [place] [address] 450 [place], [place] 370295 Clinical Nurse Specialist Anesthesiology 01/15/23 Radha Lopez [facility] [address] [place] [address] 807205 Pharmacist Pharmacist 01/16/23 Luis A Escobedo MD [address] [place] [address] 195 [place], [place] 398975 Assigned Surgical Provider 02/07/23 04/15/23 Geri Loza PA-C 9 [place], [place] 988555 Assigned Surgical Provider 04/16/23 Raina Patterson APRN CNP [address] [place] [address] Nurse Practitioner Cardiovascular Disease 05/11/23 documented as of this encounter
--- OUTSIDE RECORDS SUMMARY | 2023-06-30 16:15 | XMS_ITS | Encounter Summary ---
Author Name Unknown Organization [facility] Address [address] [place] [address] 61692 Care Team Providers Care Nondestructive Tester Name Role Phone Roderick Morelos MD Unavailable [phone] Magno Wood MD Unavailable [phone] Sophie Ocasio Unavailable [phone] Henny Rosales SKIN TOGGLER OVERHEAD CRANE INSPECTOR Unavailable [phone] [facility] Primary Care Pr ovider Sharee Negron RD Unavailable Kaykay Duarte ASSISTANT INFANT TEACHER Primary Care Provider [phone] Christiane Rodríguez MD Unavailable [phone] Luis A Escobedo MD Unavailable +[phone] Chely Fernandez PA-C Unavailable +[phone] Jing Cadena SKIN TOGGLER HIGH COURT JUSTICE Unavailable + [phone] Radha Lopez [facility] Unavailable +[phone] Luis A Escobedo MD Unavailable +[phone] Geri Loza PAEddaC Unavailable +[phone] Raina Patterson SKIN TOGGLER OVERHEAD CRANE INSPECTOR Unavailable +[phone] Encounter Details Date Type Department Care Team (Late st Contact Info) Description 09/09/2022 Telephone [facility] Weight Management [facility] [place] [address] [place] [address] 4th [place] [address] Geri Loza PA-C 909 [place] [address] Social History Tobacco Use Types Packs/Day Years [...] Geri Gaytan had suggested Marquez. Please advise. [phone] okay to leave VM or send MyChart, patient isn't always able to answer when she's working documented in this encounter Plan of Treatment Not on file documented as of this encounter Visit Diagnoses Not on filedocumented in this encounter Care Teams Nondestructive Tester Relationship Specialty Start [place] [address] [place] [address] PCP - General 08/19/22 10/14/22 Kaykay Duarte ASSISTANT INFANT TEACHER [address] [place] [address] PCP - General 10/15/22 Roderick Morelos MD [address] [place] [address] Cardiovascular Disease 02/03/22 Magno Wood MD [address] [place] [address] Otolaryngology 02/21/22 Sophie Ocasio AuD [address] [place] [address] Leaf Coverer Audiology 02/21/22 Henny Rosales APRN OVERHEAD CRANE INSPECTOR [address] [place] [address] Assigned Heart and Vascular Provider 08/09/[address] [place] [address] 592185 Registered Dietitian Dietitian, Registered 09/02/22 Christiane Rodríguez MD [address] [place] [address]89 Otolaryngology 11/12/22 Luis A Escobedo MD [address] [place] [address] 068885 Assigned Surgical Provider 11/01/22 11/28/22 Chely Fernandez PA-C [address] [place] [address] 424145 Assigned Surgical Provider 11/29/22 02/06/[address] JUSTICE 420 [facility] 450 [place], [place] 239215 Clinical Nurse Specialist Anesthesiology 01/15/23 Radha Lopez, [facility] 909 [place], [place] 227275 Pharmacist Pharmacist 01/16/23 Luis A Escobedo MD 420 [facility] 195 [place], [place] 070905 Assigned Surgical Provider 02/07/23 04/15/23 Geri Loza PA-C 9[address] [place], [place] 863855 Assigned Surgical Provider 04/16/23 Raina Patterson APRN OVERHEAD CRANE INSPECTOR [address] [place] [address] Nurse Practitioner Cardiovascular Disease 05/11/23 documented as of this encounter
--- OUTSIDE RECORDS SUMMARY | 2023-06-30 16:15 | XMS_ITS | Encounter Summary ---
Author Name Unknown Organization [facility] Address [address] [place] [address] Care Team Providers Care Power Transformer Repair Supervisor Name Role Phone Roderick Morelos MD Unavailable [phone] Magno Wood MD Unavailable [phone] Sophie Ocasio AuD Unavailable [phone] Henny Rosales CONSTRUCTION ASSISTANT CLERK OF COURT Unavailable [phone] [facility] Primary Care Pr ovider Sharee Negron RD Unavailable Kaykay Duarte TRANSIT PROOF MACHINE OPERATOR Primary Care Provider Christiane Rodríguez MD Unavailable +[phone] Luis A Escobedo MD Unavailable +[phone] Chely Fernandez PA-C Unavailable +[phone] Jing Cadena CONSTRUCTION ASSISTANT PEST CONTROL PILOT Unavailable + [phone] Radha Lopez [facility] Unavailable [phone] Luis A Escobedo MD Unavailable +[phone] Encounter Details Date Type Department Care Team (Late st Contact Info) Description 09/04/2022 Telephone [facility] Weight Management [place] 257519 [facility] 4th [place] [address] Geri Loza PA-C 909 [place] [address] Social History Tobacco Use Types Packs/Day Years [...] encounter Miscellaneous Notes * Telephone Encounter - [place] - 09/09/2022 9:25 AM CDT PA has been initiated for requested medication. See Encounter from 09/03/2022 for status/outcome. * Telephone Encounter - Shari Esteban - 09/04/2022 1:27 PM CDT General Call Contacts Type Contact Phone/Fax 09/04/2022 01:27 PM CDT Phone (Incoming) Billie Connolly (Self) [phone] (M) Reason for Call: Prior Auth questions What are your questions or concerns: Pt states her ins has not received pa from clinic yet Could we [facility] this [facility] or would you prefer to receive a phone call?: Patient would prefer a phone call Okay to leave a detailed message?: Yes at Cell number on file: Telephone Information: documented in this encounter Plan of Treatment Not on file documented as of this encounter Visit Diagnoses Not on filedocumented in this encounter Care Teams Power Transformer Repair Supervisor Relationship Specialty Start [place] [address] [place] [address] PCP - General 08/19/22 10/14/22 [place] [address] [place] [address] PCP - General 10/15/22 Roderick Morelos MD [address] [place], [place] 590845 Cardiovascular Disease 02/03/22 Magno Wood MD [address] [place] [address] 802685 Otolaryngology 02/21/22 Sophie Ocasio AuD [address] [place] [address] 890745 Administrative Library Assistant Audiology 02/21/22 Henny Rosales APRN CLERK OF COURT [address] [place] [address] Assigned Heart and Vascular Provider 08/09/[address] [place] [address] 517135 Registered Dietitian Dietitian, Registered 09/02/22 Christiane Rodríguez MD [address] [place] [address] 32847455 Otolaryngology 11/12/22 Luis A Escobedo MD [address] 688855 Assigned Surgical Provider 11/01/22 11/28/22 Chely Fernandez PA-C [address] [place] [address] 562785 Assigned Surgical Provider 11/29/22 02/06/23 Jing Cadena, CONSTRUCTION ASSISTANT PEST CONTROL PILOT [address] [place] [address] Clinical Nurse Specialist Anesthesiology 01/15/23 Radha Lopez [facility] [address] [place] [address] [phone] Pharmacist Pharmacist 01/16/23 Luis A Escobedo MD [address] 460735 Assigned Surgical Provider 02/07/23 04/15/23 documented as of this encounter
--- OUTSIDE RECORDS SUMMARY | 2023-06-30 16:15 | XMS_ITS | Encounter Summary ---
Author Name Unknown Organization [facility] Address [address] [place] [address] 09[address] Care Team Providers Care Order Selector Name Role Phone Roderick Morelos MD Unavailable [phone] Magno Wood MD Unavailable [phone] Sophie Ocasio Unavailable [phone] Henny Rosales INSTRUCTIONAL SUPPORT TECHNICIAN ADMINISTRATION SPECIALIST Unavailable [phone] [facility] Primary Care Pr ovider Sharee Negron RD Unavailable Kaykay Duarte CAR INSTALLATIONS SUPERVISOR Primary Care Provider [phone] Christiane Rodríguez MD Unavailable [phone] Luis A Escobedo MD Unavailable +[phone] Chely Fernandez PA-C Unavailable +[phone] Jing Cadena INSTRUCTIONAL SUPPORT TECHNICIAN PALLET STONE INSERTER Unavailable + [phone] Radha Lopez [facility] Unavailable +[phone] Luis A Escobedo MD Unavailable [phone] Geri Loza PAEddaC Unavailable [phone] Raina Patterson INSTRUCTIONAL SUPPORT TECHNICIAN ADMINISTRATION SPECIALIST Unavailable [phone] Encounter Details Date Type Department Care Team (Late st Contact Info) Description 10/03/2022 MyC Medical Advice [facility] Weight Management Clinic [address] 4th [place] [phone] Geri Loza PA-C [address] [place] [address] Social History Tobacco Use Types Packs/Day Years [...] on filedocumented in this encounter Care Teams Order Selector Relationship Specialty Start Date End Date Clinic, [place] [place] [address] [place] [address] PCP - General 08/19/22 10/14/22 Kaykay Duarte CAR INSTALLATIONS SUPERVISOR [address] [place] [address] [place] [address] PCP - General 10/15/22 Roderick Morelos MD [address] [place] [address] Cardiovascular Disease 02/03/22 Magno Wood MD [address] [place] [address] 097135 Otolaryngology 02/21/22 Sophie Ocasio, AuD [address] [place] [address] 128295 Account Management Specialist Audiology 02/21/22 Henny Rosales APRN ADMINISTRATION SPECIALIST [address] [place] [address] Assigned Heart and Vascular Provider 08/09/[address] [place] [address] Registered Dietitian Dietitian, Registered 09/02/22 Christiane Rodríguez MD [address] [place] [address] 396 [place], [place] 985835 Otolaryngology 11/12/22 Luis A Escobedo MD [address] [place] [address] 195 [place], [place] 989555 Assigned Surgical Provider 11/01/22 11/28/22 Chely Fernandez PA-C [address] [place] [address] 810955 Assigned Surgical Provider 11/29/22 02/06/23 Jing Cadena APRN PALLET STONE INSERTER [address] [place] [address] 450 [place], [place] 091355 Clinical Nurse Specialist Anesthesiology 01/15/23 Radha Lopez [facility] [address] [place] [address] 228735 Pharmacist Pharmacist 01/16/23 Luis A Escobedo MD [address] [place] [address] 195 [place], [place] 672685 Assigned Surgical Provider 02/07/23 04/15/23 Geri Loza PA-C 9 [place], [place] 282595 Assigned Surgical Provider 04/16/23 Raina Patterson APRN CNP [address] [place] [address] Nurse Practitioner Cardiovascular Disease 05/11/23 documented as of this encounter
--- OUTSIDE RECORDS SUMMARY | 2023-06-30 16:15 | XMS_ITS | Encounter Summary ---
Author Name Unknown Organization [facility] Address [address] [place] [address] Care Team Providers Care General Agent Name Role Phone Roderick Morelos MD Unavailable [phone] Magno Wood MD Unavailable [phone] Sophie Ocasio Unavailable [phone] Henny Rosales AQUATIC CENTRE MANAGER TRANSPORTATION ASSISTANT Unavailable [phone] [facility] Primary Care Pr ovider Sharee Negron RD Unavailable Kaykay Duarte WINE MASTER Primary Care Provider [phone] Christiane Rodríguez MD Unavailable [phone] Luis A Escobedo MD Unavailable +[phone] Chely Fernandez PA-C Unavailable +[phone] Jing Cadena AQUATIC CENTRE MANAGER BOARD SAW RUNNER Unavailable + [phone] Radha Lopez [facility] Unavailable +[phone] Luis A Escobedo MD Unavailable [phone] Geri Loza PAEddaC Unavailable [phone] Raina Patterson AQUATIC CENTRE MANAGER TRANSPORTATION ASSISTANT Unavailable [phone] Encounter Details Date Type Department Care Team (Late st Contact Info) Description 08/25/2022 Telephone [facility] Weight Management Clinic [address] 4th [place] [address] Geri Loza PA-C 9 [place] [address] Social History Tobacco Use Types Packs/Day Years [...] on filedocumented in this encounter Care Teams General Agent Relationship Specialty Start Date End Date Clinic, [place] [address] [place] [address] 864497 PCP - General 08/19/22 10/14/22 Kaykay Duarte, WINE MASTER [address] [place] [address] PCP - General 10/15/22 Roderick Morelos MD [address] [place], [place] 450265 Cardiovascular Disease 02/03/22 Magno Wood MD 420 [facility] 396 [place] [address] Otolaryngology 02/21/22 Sophie Ocasio AuD 909 [place], [place] 152315 Specialist Physician Audiology 02/21/22 Henny Rosales APRN TRANSPORTATION ASSISTANT [address] [place] [address] Assigned Heart and Vascular Provider 08/09/[address] 909 [place], [place] 816485 Registered Dietitian Dietitian, Registered 09/02/22 Christiane Rodríguez MD 420 [facility] 396 [place] [address] Otolaryngology 11/12/22 Luis A Escobedo MD 420 [facility] 195 [place], [place] 68864455 Assigned Surgical Provider 11/01/22 11/28/22 Chely Fernandez PA-C 909 [place], [place] 196565 Assigned Surgical Provider 11/29/22 02/06/23 Jing Cadena APRN BOARD SAW RUNNER 420 [facility] 450 [place] [address] Clinical Nurse Specialist Anesthesiology 01/15/23 Radha Lopez [facility] [address] [place] [address] 227705 Pharmacist Pharmacist 01/16/23 Luis A Escobedo MD 420 [facility] 195 [place], [place] 584345 Assigned Surgical Provider 02/07/23 04/15/23 Geri Loza PA-C [address] [place] [address] 098825 Assigned Surgical Provider 04/16/23 Raina Patterson APRN TRANSPORTATION ASSISTANT [address] [facility] [address] [place] 766285 Nurse Practitioner Cardiovascular Disease 05/11/23 documented as of this encounter
--- OUTSIDE RECORDS SUMMARY | 2023-06-30 16:15 | XMS_ITS | Encounter Summary ---
Author Name Unknown Organization [facility] Address [address] [place] [address] Care Team Providers Care Last Ironer Name Role Phone Roderick Morelos MD Unavailable [phone] Magno Wood MD Unavailable [phone] Sophie Ocasio Unavailable [phone] Henny Rosales ELECTRIC MOTORS SALESPERSON ECOMMERCE MANAGER Unavailable [phone] [facility] Primary Care Pr ovider Sharee Negron RD Unavailable Kaykay Duarte PHYSICS FACULTY MEMBER Primary Care Provider [phone] Christiane Rodríguez MD Unavailable [phone] Luis A Escobedo MD Unavailable +[phone] Chely Fernandez PA-C Unavailable +[phone] Jing Cadena ELECTRIC MOTORS SALESPERSON LAPIDARY APPRENTICE Unavailable + [phone] Radha Lopez [facility] Unavailable +[phone] Luis A Escobedo MD Unavailable [phone] Geri Loza PAEddaC Unavailable [phone] Raina Patterson ELECTRIC MOTORS SALESPERSON ECOMMERCE MANAGER Unavailable +[phone] Encounter Details Date Type Department Care Team (Late st Contact Info) Description 08/19/2022 MyC Medical Advice [facility] Weight Management Clinic [address] 4th [place] [address] Tanya Larsen RN Social History [...] on filedocumented in this encounter Care Teams Last Ironer Relationship Specialty Start [place] [address] [place] [address] PCP - General 08/19/22 10/14/22 Kaykay Duarte PHYSICS FACULTY MEMBER [address] [place] [address] [facility] [address] PCP - General 10/15/22 Roderick Morelos MD [address] [place], [place] 948435 Cardiovascular Disease 02/03/22 Magno Wood MD [address] [place] [address] 396 [place], [place] 522935 Otolaryngology 02/21/22 Sophie Ocasio, AuD [address] [place] [address] 486405 Dehydrator Operator Audiology 02/21/22 Henny Rosales, ELECTRIC MOTORS SALESPERSON ECOMMERCE MANAGER [address] [place] [address] Assigned Heart and Vascular Provider 08/09/[address] [place] [address] 753495 Registered Dietitian Dietitian, Registered 09/02/22 Christiane Rodríguez MD [address] [place] [address] 396 [place], [place] 242125 Otolaryngology 11/12/22 Luis A Escobedo MD [address] [place] [address] 195 [place], [place] 048835 Assigned Surgical Provider 11/01/22 11/28/22 Chely Fernandez PA-C [address] [place] [address] 191315 Assigned Surgical Provider 11/29/22 02/06/23 Jing Cadena, ELECTRIC MOTORS SALESPERSON LAPIDARY APPRENTICE 420 [facility] 450 [place], [place] 284885 Clinical Nurse Specialist Anesthesiology 01/15/23 Radha Lopez [facility] [address] [place] [address] 705655 Pharmacist Pharmacist 01/16/23 Luis A Escobedo MD [address] [place] [address] 195 [place] [address] Assigned Surgical Provider 02/07/23 04/15/23 Geri Loza PA-C 9 [place] [address] Assigned Surgical Provider 04/16/23 Raina Patterson APRN [facility] [address] [place] [address] Nurse Practitioner Cardiovascular Disease 05/11/23 documented as of this encounter
--- OUTSIDE RECORDS SUMMARY | 2023-06-30 16:15 | XMS_ITS | Encounter Summary ---
Author Name Unknown Organization [facility] Address [address] [place] [address] 8[address] Care Team Providers Care Undercollar Baster Name Role Phone Roderick Morelos MD Unavailable [phone] Magno Wood MD Unavailable [phone] Sophie Ocasio AuD Unavailable +[phone] Henny Rosales BONDING EQUIPMENT OPERATOR KICKBOXING INSTRUCTOR Unavailable [phone] Unavailable Kaykay Duarte MESS ATTENDANT Primary Care Provider [phone] Christiane Rodríguez MD Unavailable [phone] Luis A Escobedo MD Unavailable +[phone] Chely FernandezC Unavailable [phone] Jing Cadena APRN APARTMENT COORDINATOR Unavailable +[phone] Radha Lopez [facility] Unavailable +[phone] Luis A Escobedo MD Unavailable [phone] Geri LozaC Unavailable [phone] Raina Patterson APRN KICKBOXING INSTRUCTOR Unavailable +[phone] Encounter Details Date Type Department Care Team (Late st Contact Info) Description 10/15/2022 [facility] Medical Advice [facility] [place] 738549 [facility] [address] 4th [place] [address] Luis A Escobedo MD [address] [place] [facility] 195 [place], [place] 529445 Social History Tobacco Use Types Packs/Day Years [...] documented as of this encounter Care Teams Undercollar Baster Relationship Specialty [place] [address] [place] [address] PCP - General 10/15/22 Roderick Morelos MD [address] [place] [address] Cardiovascular Disease 02/03/22 Magno Wood MD 420 [facility] 396 [place], [place] 463875 Otolaryngology 02/21/22 Sophie Ocasio AuD 909 [place], [place] 975275 Urban Design Consultant Audiology 02/21/22 Henny Rosales APRN KICKBOXING INSTRUCTOR [address] [place] [address] Assigned Heart and Vascular Provider 08/09/[address] [place] [address] 798885 Registered Dietitian Dietitian, Registered 09/02/22 Christiane Rodríguez MD [address] [place] [address] 396 [place] [address] Otolaryngology 11/12/22 Luis A Escobedo MD 420 [facility] 195 [place] [address] Assigned Surgical Provider 11/01/22 11/28/22 Chely Fernandez PA-C [address] [place] [address] 867795 Assigned Surgical Provider 11/29/22 02/06/23 Jing Cadena, BONDING EQUIPMENT OPERATOR APARTMENT COORDINATOR 420 [facility] 450 [place] [address] Clinical Nurse Specialist Anesthesiology 01/15/23 Radha Lopez [facility] [address] [place] [address] 522695 Pharmacist Pharmacist 01/16/23 Luis A Escobedo MD [address] [place] [address] [facility] 195 [place] [address] Assigned Surgical Provider 02/07/23 04/15/23 Geri Loza PA-C 909 [place] [address] Assigned Surgical Provider 04/16/23 Raina Patterson APRN [facility] [address] [place], [place] 948645 Nurse Practitioner Cardiovascular Disease 05/11/23 documented as of this encounter
--- OUTSIDE RECORDS SUMMARY | 2023-06-30 16:15 | XMS_ITS | Encounter Summary ---
Author Name Unknown Organization [place] Address [address] [place] [address] 52889 Care Team Providers Care Sand Sifter Name Role Phone Roderick Morelos MD Unavailable [phone] Magno Wood MD Unavailable Sophie Ocasio Unavailable +[phone] Henny Rosales CLEANING MANAGER RETAIL TRAINING MANAGER Unavailable [phone] [facility] Primary Care Pr ovider Sharee Negron RD Unavailable Kaykay Duarte LEAD SECTION SUPERVISOR Primary Care Provider [phone] Christiane Rodríguez MD Unavailable [phone] Luis A Escobedo MD Unavailable +[phone] Chely Fernandez PA-C Unavailable +[phone] Jing Cadena CLEANING MANAGER JAVA WEB ARCHITECT Unavailable + [phone] Radha Lopez [facility] Unavailable +[phone] Luis A Escobedo MD Unavailable [phone] Geri Loza PAEddaC Unavailable [phone] Raina Patterson CLEANING MANAGER RETAIL TRAINING MANAGER Unavailable [phone] Encounter Details Date Type Department Care Team (Late st Contact Info) Description 09/15/2022 [facility]ology Clinic [address] 4th [place] [address] Kang Griffiths Social History Tobacco [...] on filedocumented in this encounter Care Teams Sand Sifter Relationship Specialty Start [place] [address] [place] [address] PCP - General 08/19/22 10/14/22 Kaykay Duarte, LEAD SECTION SUPERVISOR [address] [place] [address] PCP - General 10/15/22 Roderick Morelos MD [address] [place], [place] 242265 Cardiovascular Disease 02/03/22 Magno Wood MD [address] [place] [address] 735295 Otolaryngology 02/21/22 Sophie Ocasio AuD [address] [place] [address] 263465 Youth Manager Audiology 02/21/22 Henny Rosales, CLEANING MANAGER RETAIL TRAINING MANAGER [address] [place] [address] Assigned Heart and Vascular Provider 08/09/[address] 9 [place] [address] Registered Dietitian Dietitian, Registered 09/02/22 Christiane Rodríguez MD 420 [facility] 396 [place], [place] 576645 Otolaryngology 11/12/22 Luis A Escobedo MD [address] [place] [address] 195 [place], [place] 929945 Assigned Surgical Provider 11/01/22 11/28/22 Chely Fernandez PA-C [address] [place] [address] 560545 Assigned Surgical Provider 11/29/22 02/06/23 Jing Cadena, CLEANING MANAGER JAVA WEB ARCHITECT [address] [place] [address] 450 [place], [place] 309585 Clinical Nurse Specialist Anesthesiology 01/15/23 Radha Lopez, [facility] [address] [place] [address] 010995 Pharmacist Pharmacist 01/16/23 Luis A Escobedo MD [address] [place] [address] 195 [place], [place] 831945 Assigned Surgical Provider 02/07/23 04/15/23 Geri Loza PA-C 909 [place] [address] Assigned Surgical Provider 04/16/23 Raina Patterson APRN RETAIL TRAINING MANAGER [address] [place] [address] Nurse Practitioner Cardiovascular Disease 05/11/23 documented as of this encounter
--- OUTSIDE RECORDS SUMMARY | 2023-06-30 16:15 | XMS_ITS | Encounter Summary ---
Author Name Unknown Organization [facility] Address [address] [place] [address] Care Team Providers Care Miner Name Role Phone Roderick Morelos MD Unavailable [phone] Magno Wood MD Unavailable [phone] Sophie Ocasio Unavailable +[phone] Henny Rosales MACHINIST JOB SETTER ESCALATOR INSTALLER Unavailable +[phone] [facility] Primary Care Pr ovider Sharee Negron RD Unavailable Kaykay Duarte ENGINEERING TEST MECHANIC Primary Care Provider [phone] Christiane Rodríguez MD Unavailable [phone] Luis A Escobedo MD Unavailable +[phone] Chely Fernandez PA-C Unavailable +[phone] Jing Cadena MACHINIST JOB SETTER SOLAR PHOTOVOLTAIC DESIGNER Unavailable + [phone] Radha Lopez [facility] Unavailable +[phone] Luis A Escobedo MD Unavailable +[phone] Geri Loza PAEddaC Unavailable [phone] Raina Patterson MACHINIST JOB SETTER ESCALATOR INSTALLER Unavailable +[phone] Encounter Details Date Type Department Care Team (Late st Contact Info) Description 09/29/2022 [facility] [address] 4th [place] [address] Kang Griffiths Social History Tobacco [...] on filedocumented in this encounter Care Teams Miner Relationship Specialty Start Date End Date Clinic, [facility] [place] [address] [place] [address] PCP - General 08/19/22 10/14/22 Kaykay Duarte, ENGINEERING TEST MECHANIC [address] [place] [address] PCP - General 10/15/22 Roderick Morelos MD [address] [place] [address] Cardiovascular Disease 02/03/22 Magno Wood MD [address] [place] [address] 109395 Otolaryngology 02/21/22 Sophie Ocasio AuD [address] [place] [address] 187365 Product Support Analyst Audiology 02/21/22 Henny Rosales, MACHINIST JOB SETTER ESCALATOR INSTALLER [address] [place] [address] Assigned Heart and Vascular Provider 08/09/[address]09 [place], [place] 951585 Registered Dietitian Dietitian, Registered 09/02/22 Christiane Rodríguez MD 420 [facility] 396 [place], [place] 361395 Otolaryngology 11/12/22 Luis A Escobedo MD [address] [place] [address] 195 [place], [place] 831125 Assigned Surgical Provider 11/01/22 11/28/22 Chely Fernandez PA-C [address] [place] [address] [id number] Assigned Surgical Provider 11/29/22 02/06/23 Jing Cadena, MACHINIST JOB SETTER SOLAR PHOTOVOLTAIC DESIGNER 420 [facility] 450 [place], [place] 359365 Clinical Nurse Specialist Anesthesiology 01/15/23 Radha Lopez, [facility] [address] [place] [address] 832505 Pharmacist Pharmacist 01/16/23 Luis A Escobedo MD [address] [place] [address] 195 [place], [place] 542145 Assigned Surgical Provider 02/07/23 04/15/23 Geri Loza PA-C 909 [place] [address] Assigned Surgical Provider 04/16/23 Raina Patterson APRN ESCALATOR INSTALLER [address] [place] [address] Nurse Practitioner Cardiovascular Disease 05/11/23 documented as of this encounter
--- OUTSIDE RECORDS SUMMARY | 2023-06-30 16:15 | XMS_ITS | Encounter Summary ---
Author Name Unknown Organization [facility] Address [address] [place] [address] Care Team Providers Care Licensed Practical Nurse Name Role Phone Roderick Morelos MD Unavailable [phone] Magno Wood MD Unavailable [phone] Sophie Ocasio AuD Unavailable [phone] Henny Rosales SENIOR IT SECURITY ANALYST PROPERTY INVESTOR Unavailable [phone] Unavailable Kaykay Duarte WHITE SIDEWALL TIRE BUFFER Primary Care Provider [phone] Christiane Rodríguez MD Unavailable +[phone] Luis A Escobedo MD Unavailable +[phone] Chely FernandezC Unavailable +[phone] Jing Cadena APRN SOIL SORT WORKER Unavailable +[phone] Radha Lopez [facility] Unavailable +[phone] Luis A Escobedo MD Unavailable [phone] Geri LozaC Unavailable [phone] Raina Patterson APRN PROPERTY INVESTOR Unavailable +[phone] Encounter Details Date Type Department Care Team (Late st Contact Info) Description 10/23/2022 External Order Results [facility] [address] [place] [address] Outside, Provider Class 3 severe obesity with [...] Vitamin A (10/23/2022 11:20 AM CDT) Pathologist [facility] Vitamin A (External) 0.82 0.30 - 1.20 [...] BREEZE PFT NON-INTERFACED (ONBASE SCANS) * Vitamin B12 (10/23/2022 11:20 AM CDT) Pathologist [facility] Vitamin B12 (External) 294 213 - 816 pg/mL NON-INTERFACED (ONBASE SCANS) Blood BLOOD SPECIMEN / Unknown 10/23/2022 11:20 AM CDT Narrative BREEZE PFT - 10/24/2022 1:41 PM CDT Verified by Gisel Izaguirre on 10/24/2022. Geri Loza PA-C LAB - BLOOD ORDERAB LES BREEZE PFT NON-INTERFACED (ONBASE SCANS) * Ferritin (10/23/2022 11:20 AM CDT) Pathologist [facility] Ferritin (External) 88 9 - 204 ng/mL NON-INTERFACED (ONBASE SCANS) Blood BLOOD SPECIMEN / Unknown 10/23/2022 11:20 AM CDT Narrative BREEZE PFT - 10/24/2022 1:41 PM CDT Verified by Gisel Izaguirre on 10/24/2022. Mary JoLucila Loza PA-C LAB [...] - BLOOD ORDERAB LES Performing Organization Address City/[facility]/ZIP Co de Phone Number BREEZE PFT NON-INTERFACED [...] - BLOOD ORDERABL ES Performing Organization Address [facility]/ZIP Co de Phone Number MELIDAEZE PFT NON-INTERFACED (ONBASE SCANS) * Hepatic function [...] / Unknown 10/23/2022 11:20 AM CDT Narrative MELIDAHEATHERTatyana PFT - 10/24/2022 11:08 AM CDT Verified by Quinn Wetzel on 10/24/2022. Mikayla Sweeney MD LAB - BLOOD ORDERABL ES Performing Organization Address [facility]/ZIP Co de Phone Number MELIDAEZE PFT NON-INTERFACED (ONBASE SCANS) * (ABNORMAL) Basic [...] MD LAB - BLOOD ORDERABL ES LUIS WORRELL NON-INTERFACED (ONBASE SCANS) documented in this encounter Visit Diagnoses Diagnosis Class 3 severe obesity with serious comorbidity and body mass index (BMI) of 45.0 to 49.9 in adult, unspecified obesity type (H) documented in this encounter Additional Health Concerns Problem Noted Date Diagnosed Date BRIAN PATHWAY SURGERY IS SCHEDULED 10/15/2022 documented as of this encounter Care Teams Licensed Practical Nurse Relationship Specialty [place] [address] [place] [address] PCP - General 10/15/22 Roderick Morelos MD [address] [place], [place] 7[address] Cardiovascular Disease 02/03/22 Magno Wood MD 420 [facility] 396 [place], [place] 109205 Otolaryngology 02/21/22 Sophie Ocasio AuD 909 [place], [place] 231265 Financial Developer Audiology 02/21/22 Henny Rosales, SENIOR IT SECURITY ANALYST PROPERTY INVESTOR [address] [place] [address] Assigned Heart and Vascular Provider 08/09/[address] [place], [place] 739625 Registered Dietitian Dietitian, Registered 09/02/22 Christiane Rodríguez MD 420 [facility] 396 [place], [place] 433545 Otolaryngology 11/12/22 Luis A Escobedo MD [address] [place] [address] 195 [place], [place] 716365 Assigned Surgical Provider 11/01/22 11/28/22 Chely Fernandez PA-C [address] [place] [address] 602495 Assigned Surgical Provider 11/29/22 02/06/23 Jing Cadena, SENIOR IT SECURITY ANALYST SOIL SORT WORKER 420 [facility] 450 [place], [place] 9[address]75 Clinical Nurse Specialist Anesthesiology 01/15/23 Radha Lopez [facility] 9 [place], [place] 112115 Pharmacist Pharmacist 01/16/23 Luis A Escobedo MD 420 [facility] 195 [place], [place] 450905 Assigned Surgical Provider 02/07/23 04/15/23 Geri Loza PA-C 9 [place] [address] Assigned Surgical Provider 04/16/23 Raina Patterson APRN PROPERTY INVESTOR [address] [place] [address] Nurse Practitioner Cardiovascular Disease 05/11/23 documented as of this encounter
--- OUTSIDE RECORDS SUMMARY | 2023-06-30 16:15 | XMS_ITS | Encounter Summary ---
Author Name Unknown Organization [facility] Address [address] [place] [address] Care Team Providers Care Brand Manager Name Role Phone Roderick Morelos MD Unavailable [phone] Magno Wood MD Unavailable [phone] Sophie Ocasio AuD Unavailable [phone] Henny Rosales SUPERVISOR REFRACTORY PRODUCTS INFORMATION ENGINEER Unavailable [phone] Unavailable Kaykay Duarte FIRE TOWER KEEPER Primary Care Provider [phone] Christiane Rodríguez MD Unavailable [phone] Luis A Escobedo MD Unavailable [phone] Chely FernandezC Unavailable [phone] Jing Cadena APRN IRON PILER Unavailable [phone] Radha Lopez [facility] Unavailable [phone] Luis A Escobedo MD Unavailable [phone] Geri LozaC Unavailable [phone] Raina Patterson SUPERVISOR REFRACTORY PRODUCTS INFORMATION ENGINEER Unavailable [phone] Encounter Details Date Type Department Care Team (Late st Contact Info) Description 10/16/2022 MyC Medical Advice Initial Department Mychart, [facility] Social History Tobacco Use Types Packs/Day Years [...] documented as of this encounter Care Teams Brand Manager Relationship Specialty Start Date End Date Kaykay Duarte, FIRE TOWER KEEPER [address] [place] [address] [place] [address] PCP - General 10/15/22 Roderick Morelos MD [address] [place], [place] 2[address]45 Cardiovascular Disease 02/03/22 Magno Wood MD 420 [facility] 396 [place], [place] 8[address]805 Otolaryngology 02/21/22 Sophie Ocasio AuD 909 [place], [place] 355405 Mule Driver Audiology 02/21/22 Henny Rosales APRN INFORMATION ENGINEER [address] [place] [phone] Assigned Heart and Vascular Provider 08/09/[address]09 [place], [place] 794605 Registered Dietitian Dietitian, Registered 09/02/22 Christiane Rodríguez MD 420 [facility] 396 [place], [place] 094435 Otolaryngology 11/12/22 Luis A Escobedo MD [address] [place] [address] Assigned Surgical Provider 11/01/22 11/28/22 Chely Fernandez PA-C [address] [place] [address] 115945 Assigned Surgical Provider 11/29/22 02/06/23 Jing Cadena, SUPERVISOR REFRACTORY PRODUCTS IRON PILER 420 [facility] 450 [place], [place] 571375 Clinical Nurse Specialist Anesthesiology 01/15/23 Radha Lopez, [facility] 9 [place], [place] 6[address] Pharmacist Pharmacist 01/16/23 Luis A Escobedo MD [address] [place] [address] 195 [place], [place] 009655 Assigned Surgical Provider 02/07/23 04/15/23 Geri Loza PA-C 9 [place] [address] Assigned Surgical Provider 04/16/23 Raina Patterson APRN INFORMATION ENGINEER [address] [place] [address] Nurse Practitioner Cardiovascular Disease 05/11/23 documented as of this encounter
--- OUTSIDE RECORDS SUMMARY | 2023-06-30 16:15 | XMS_ITS | Encounter Summary ---
Author Name Unknown Organization [facility] Address [address] [place] [address] Care Team Providers Care Principal Account Clerk Name Role Phone Roderick Morelos MD Unavailable [phone] Magno Wood MD Unavailable [phone] Sophie Ocasio Unavailable [phone] Henny Rosales COMMERCIAL DRIVER SEPARATOR TENDER Unavailable [phone] [facility] Primary Care Pr ovider Sharee Negron RD Unavailable Kaykay Duarte GILL NET STRINGER Primary Care Provider [phone] Christiane Rodríguez MD Unavailable [phone] Luis A Escboedo MD Unavailable +[phone] Chely Fernandez PA-C Unavailable +[phone] Jing Cadena COMMERCIAL DRIVER DESPATCHING AND RECEIVING CLERK Unavailable + [phone] Radha Lopez [facility] Unavailable [phone] Luis A Escobedo MD Unavailable [phone] Geri Loza PAEddaC Unavailable [phone] Raina Patterson COMMERCIAL DRIVER SEPARATOR TENDER Unavailable [phone] Encounter Details Date Type Department Care Team (Late st Contact Info) Description 09/09/2022 MyC Medical Advice [facility] [address] [place] [address] Tanya Larsen RN Social History [...] on filedocumented in this encounter Care Teams Principal Account Clerk Relationship Specialty Start Date End Date Clinic, [facility] [place] [address] [place] [address] PCP - General 08/19/22 10/14/22 Kaykay Duarte, GILL NET STRINGER [address] [place] [address] [place] [address] PCP - General 10/15/22 Roderick Morelos MD [address] [place], [place] [address] Cardiovascular Disease 02/03/22 Magno Wood MD [address] [place] [address] 396 [place], [place] 763325 Otolaryngology 02/21/22 Sophie Ocasio AuD [address] [place] [address] 546715 Senior Account Executive Audiology 02/21/22 Henny Rosales, COMMERCIAL DRIVER SEPARATOR TENDER [address] [place] [address] Assigned Heart and Vascular Provider 08/09/[address] 909 [place] [address] Registered Dietitian Dietitian, Registered 09/02/22 Christiane Rodríguez MD 420 [facility] 396 [place], [place] 332025 Otolaryngology 11/12/22 Luis A Escobedo MD [address] [place] [address] 302895 Assigned Surgical Provider 11/01/22 11/28/22 Chely Fernandez PA-C [address] [place] [address] 822825 Assigned Surgical Provider 11/29/22 02/06/23 Jing Cadena, COMMERCIAL DRIVER DESPATCHING AND RECEIVING CLERK [address] [place] [address] 450 [place], [place] 8[address]305 Clinical Nurse Specialist Anesthesiology 01/15/23 Radha Lopez, [facility] [address] [place] [address] 216845 Pharmacist Pharmacist 01/16/23 Luis A Escobedo MD [address] [place] [address] 195 [place], [place] 695535 Assigned Surgical Provider 02/07/23 04/15/23 Geri Loza PA-C 909 [place] [address] Assigned Surgical Provider 04/16/23 Raina Patterson APRN SEPARATOR TENDER [address] [place] [address] Nurse Practitioner Cardiovascular Disease 05/11/23 documented as of this encounter
--- OUTSIDE RECORDS SUMMARY | 2023-06-30 16:15 | XMS_ITS | Encounter Summary ---
Author Name Unknown Organization [place] Address [address] [place] [address] Care Team Providers Care Dumpling Machine Operator Name Role Phone Roderick Morelos MD Unavailable [phone] Magno Wood MD Unavailable [phone] Sophie Ocasio Unavailable [phone] Henny Rosales HAND FOLDER SIGNAL APPRENTICE Unavailable [phone] [facility] Primary Care Pr ovider Sharee Negron RD Unavailable Kaykay Duarte MANAGER WORKERS COMPENSATION Primary Care Provider [phone] Christiane Rodríguez MD Unavailable [phone] Luis A Escobedo MD Unavailable +[phone] Chely Fernandez PA-C Unavailable +[phone] Jing Cadena HAND FOLDER AIRCRAFT MAINTENANCE TECHNICIAN Unavailable + [phone] Radha [address] [facility] Unavailable +[phone] Luis A Escobedo MD Unavailable [phone] Geri Loza PAEddaC Unavailable [phone] Raina Patterson HAND FOLDER SIGNAL APPRENTICE Unavailable [phone] Encounter Details Date Type Department Care Team (Late st Contact Info) Description 09/02/2022 MyC Medical Advice [facility] [address] 4th [place] [address] Geri Loza PA-C 909 [place], [place] 796535 Social History Tobacco Use Types Packs/Day Years [...] on filedocumented in this encounter Care Teams Dumpling Machine Operator Relationship Specialty Start [place] [address] [place] [address] PCP - General 08/19/22 10/14/22 Kaykay Duarte NP [address] [place] [address] [place] 6[address]647 PCP - General 10/15/22 Roderick Morelos MD [address] [place], [place] 538435 Cardiovascular Disease 02/03/22 Magno Wood MD [address] [place] [address] 396 [place], [place] 446[address] Otolaryngology 02/21/22 Sophie Ocasio AuD [address] [place] [address] 858235 Field Hauler Audiology 02/21/22 Henny Rosales APRN SIGNAL APPRENTICE [address] [place] [address] Assigned Heart and Vascular Provider 08/09/[address] [place] [address] Registered Dietitian Dietitian, Registered 09/02/22 Christiane Rodríguez MD [address] [place] [address] 396 [place] [address] Otolaryngology 11/12/22 Luis A Escobedo MD [address] [place] [address] Assigned Surgical Provider 11/01/22 11/28/22 Chely Fernandez PA-C [address] [place] [address] 358375 Assigned Surgical Provider 11/29/22 02/06/23 Jing Cadena APRN AIRCRAFT MAINTENANCE TECHNICIAN [address] [place] [address] 450 [place] [address] Clinical Nurse Specialist Anesthesiology 01/15/23 Radha Lopez, [facility] [address] [place] [address] Pharmacist Pharmacist 01/16/23 Luis A Escobedo MD 420 [facility] 195 [place], [place] 373715 Assigned Surgical Provider 02/07/23 04/15/23 Geri Loza PA-C 909 [place], [place] 679685 Assigned Surgical Provider 04/16/23 Raina Patterson APRN SIGNAL APPRENTICE [address] [place], [place] [address] Nurse Practitioner Cardiovascular Disease 05/11/23 documented as of this encounter
--- OUTSIDE RECORDS SUMMARY | 2023-06-30 16:16 | XMS_ITS | Encounter Summary ---
Author Name Unknown Organization [facility] Address [address] [place] [address] Care Team Providers Care Wheel Presser Name Role Phone [facility] Primary Care Provider Unavailable Roderick Morelos MD Unavailable [phone] Roderick Morelos MD Unavailable [phone] Magno Wood MD Unavailable [phone] Sophie Ocasio AuD Unavailable [phone] Parth Ellis MD Unavailable [phone] Roderick Morelos MD Unavailable [phone] Henny Rosales APRN SCRAP KETTLE TENDER Unavailable [phone] [facility] [place] Primary Care Pr ovider Sharee Negron RD Unavailable Kaykay Duarte TRANSPLANT SURGEON Primary Care Provider Christiane Rodríguez MD Unavailable + [phone] Luis A Escobedo MD Unavailable [phone] Chely Fernandez PA-C Unavailable [phone] Jing Cadena PHARMACEUTICAL REPRESENTATIVE DATA ADMINISTRATOR Unavailable [phone] Radha Lopez [facility] Unavailable Luis A Escobedo MD Unavailable Geri Loza PA-C Unavailable Raina Patterson APRN SCRAP KETTLE TENDER Unavailable Encounter Details Date Type Department Care Team (Late st Contact Info) Description 05/26/2022 MyC Medical Advice [facility] [address] 4th [place] [address] Jessi Mantilla LPN Social History Tobacco Use [...] on filedocumented in this encounter Care Teams Wheel Presser Relationship Specialty Start Date End Date Ernestina Martini PCP - General Family Practice 10/12/19 08/18/22 [facility] [address] [place] [address] PCP - General 08/19/22 10/14/22 [place] [address] [place] [address] PCP - General 10/15/22 Roderick Morelos MD [address] [place] 0638[address] Cardiovascular Disease 02/03/22 Roderick Morelos MD [address] [place] [address] Assigned Heart and Vascular Provider 02/15/22 07/18/22 Magno Wood MD 420 [facility] 396 [place], [place] 997635 Otolaryngology 02/21/22 Sophie Ocasio AuD [address] [place] [address] 271425 Cuff Setter Overlock Audiology 02/21/22 Parth Ellis MD [address] [place], [place] 228[address] Assigned Heart and Vascular Provider 07/19/22 07/25/22 Roderick Morelos MD [address] [place] 782695 Assigned Heart and Vascular Provider 07/26/22 08/08/22 Henny Rosales APRN SCRAP KETTLE TENDER [address] [place] [address] Assigned Heart and Vascular Provider 08/09/[address] [place] [address] Registered Dietitian Dietitian, Registered 09/02/22 Christiane Rodríguez MD 420 [facility] 396 [place], [place] 284855 Otolaryngology 11/12/22 Luis A Escobedo MD [address] [place] [address] 282815 Assigned Surgical Provider 11/01/22 11/28/22 Chely Fernandez PA-C 909 [place], [place] 352205 Assigned Surgical Provider 11/29/22 02/06/23 Jing Cadena APRN DATA ADMINISTRATOR 420 [facility] 450 [place] [address] Clinical Nurse Specialist Anesthesiology 01/15/23 Radha Lopez, [facility] [address] [place] [address] 406615 Pharmacist Pharmacist 01/16/23 Luis A Escobedo MD 420 [facility] 195 [place], [place] 273365 Assigned Surgical Provider 02/07/23 04/15/23 Geri Loza PA-C [address] [place] [address] 831575 Assigned Surgical Provider 04/16/23 Raina Patterson, GINA SCRAP KETTLE TENDER [address] [place] 019945 Nurse Practitioner Cardiovascular Disease 05/11/23 documented as of this encounter
--- OUTSIDE RECORDS SUMMARY | 2023-06-30 16:16 | XMS_ITS | Encounter Summary ---
Author Name Unknown Organization [place] Address [address] [place] [address] 31943 Care Team Providers Care Science Specialist Name Role Phone Barrington Agudelo PA-C Primary Care Provider + [phone] Magno Wood MD Unavailable Elvia Nugent Reedy Primary Care Provider Unavailable Parth Ellis MD Unavailable [phone] Tati Ayala MD Unavailable [phone] Khris Butt MD Unavailable +[phone] MorelosRoderick nunes MD Unavailable Roderick Morelos MD Unavailable Magno Wood MD Unavailable [phone] Sophie Ocasio Unavailable +[phone] Parth Ellis MD Unavailable +[phone] MorelosRoderick nunes MD Unavailable +[phone] Henny Rosales APRN LIGHT BULB TESTER Unavailable [phone] [facility] Elvia Nugent Reedy Primary Care Pr ovider Sharee Negron RD Unavailable Kaykay Duarte SERVICE ORDER DISPATCHER Primary Care Provider [phone] Christiane Rodríguez MD Unavailable +[phone] Luis A Escobedo MD Unavailable + [phone] Chely Fernandez PA-C Unavailable +[phone] Cadena Jing Susie FUENTES DISTANCE LEARNING UNIT LEADER Unavailable + [phone] Radha Lopez [facility] Unavailable [phone] Luis A Escobedo MD Unavailable +[phone] Geri Loza PA-C Unavailable +[phone] Raina Patterson GINA LIGHT BULB TESTER Unavailable +[phone] Encounter Details Date Type Department Care Team (Late st Contact Info) Description 08/21/2011 Office Visit-[facility] [address] [place] [phone] Dane Rosa MD Social History Tobacco Use Types Packs/Day Years Used Date Smoking Tobacco: Never Assessed Sex and Gender Information Value Date Recorded Sex Assigned at Not on file Gender Identity Not on file Sexual Orientation Not on file documented as of this encounter Progress Notes * Dane Rosa MD - 08/25/2011 9:18 AM CDT Progress Note Created by: Dane Rosa M.D. DATE: 08/21/2011 JIMBO OWENS DATE OF : 1970 AGE: [age] years old Referring Physician: BARRINGTON LARA Referring Clinic: [facility] CURRENT DIAGNOSES 1. - Hypercholesterolemia, 272.0 [...] Mother - Age 34, cancer-breast; Half-Brother - [place]; Sister 1 - CAD; SOCIAL HISTORY Alcohol [...] Out COVID-19 03/19/2020 03/19/2020 03/19/2020 6:22 PM INSPECTOR MULTIFOCAL LENS COVID-19 03/19/2020 03/19/2020 04/09/2020 11:3 9 PM INSPECTOR MULTIFOCAL LENS Rule Out COVID-19 06/19/2021 06/19/2021 06/19/2021 1:37 AM CDT Rule Out COVID-19 10/29/2021 10/29/2021 10/29/2021 1:07 AM CDT documented as of this encounter Care Teams Science Specialist Relationship Specialty Start Date End Date Barrington Agudelo PA-C [facility] [address] 999948 PCP - General 05/04/12 10/11/19 [place] Martini 420 [facility] 396 [place] [address] PCP - General Family Practice 10/12/19 08/18/22 [facility] [place] [address] [place] [address] PCP - General 08/19/22 10/14/22 [place] [address] [place] [address] PCP - General 10/15/22 Magno Wood MD 420 [facility] 396 [place], [place] 051565 Otolaryngology 05/29/15 08/02/17 Parth Ellis MD [address] [place] 199805 Assigned Heart and Vascular Provider 01/13/20 12/13/21 Tati Ayala MD [address] [facility] 200 [place], [place] 149810 Assigned Endocrinology Provider 01/13/20 12/29/20 Khris Butt MD [address] [place] 264215 Assigned Heart and Vascular Provider 12/14/21 02/14/22 Roderick Morelos MD [address] [place] 761225 Cardiovascular Disease 02/03/22 Roderick Morelos MD [address] [place] 330295 Assigned Heart and Vascular Provider 02/15/22 07/18/22 Magno Wood MD [address] [place] [address] 406395 Otolaryngology 02/21/22 Sophie Ocasio AuD [address] [place] [address] 077205 Assistant Womens Volleyball Coach Audiology 02/21/22 Parth Ellis MD [address] [place], [place] 991365 Assigned Heart and Vascular Provider 07/19/22 07/25/22 Roderick Morelos MD [address] [place], [place] 336715 Assigned Heart and Vascular Provider 07/26/22 08/08/22 Henny Rosales APRN LIGHT BULB TESTER [address] [place] [phone] Assigned Heart and Vascular Provider 08/09/[address] [place] [address] 674525 Registered Dietitian Dietitian, Registered 09/02/22 Christiane Rodríguez MD [address] [place] [address] 295495 Otolaryngology 11/12/22 Luis A Escobedo MD [address] [place] [address]31 Assigned Surgical Provider 11/01/22 11/28/22 Chely Fernandez PA-C 909 [place] [address] Assigned Surgical Provider 11/29/22 02/06/23 Jing Cadena APRN DISTANCE LEARNING UNIT LEADER 420 [facility] 450 [place], [place] 989485 Clinical Nurse Specialist Anesthesiology 01/15/23 Radha Lopez [facility] [address] [place] [address] 783645 Pharmacist Pharmacist 01/16/23 Luis A Escobedo MD [address] [place] [address] 195 [place] [address] Assigned Surgical Provider 02/07/23 04/15/23 Geri Loza PA-C [address] [place] [address] 99388 Assigned Surgical Provider 04/16/23 Raina Patterson APRN LIGHT BULB TESTER [address] [facility] [address] [place] 943135 Nurse Practitioner Cardiovascular Disease 05/11/23 documented as of this encounter
--- OUTSIDE RECORDS SUMMARY | 2023-06-30 16:16 | XMS_ITS | Encounter Summary ---
Author Name Unknown Organization [place] Address [address] [place] [address] Care Team Providers Care Recording Engineer Name Role Phone [facility] Primary Care Provider Unavailable Roderick Morelos MD Unavailable [phone] Roderick Morelos MD Unavailable +[phone] Magno Wood MD Unavailable [phone] Sophie Ocasio AuD Unavailable +[phone] Parth Ellis MD Unavailable +[phone] Roderick Morelos MD Unavailable [phone] Henny Rosales APRN ELEMENTARY SCHOOL ART TEACHER Unavailable [phone] [facility] Jovanna [place] Primary Care Pr ovider Sharee Negron RD Unavailable Kaykay Duarte MANUAL MACHINIST Primary Care Provider Christiane Rodríguez MD Unavailable + [phone] Luis A Escobedo MD Unavailable +[phone] Chely Fernandez PA-C Unavailable +[phone] Jing Cadena FARM ADVISER GRAPHIC MANAGER Unavailable + [phone] Radha Lopez [facility] Unavailable Luis A Escobedo MD Unavailable [phone] Geri Loza PA-C Unavailable [phone] UzielkeriRaina APRN ELEMENTARY SCHOOL ART TEACHER Unavailable Encounter Details Date Type Department Care Team (Late st Contact Info) Description 04/01/2022 [facility] [address] 4th [place] [address] [facility] Social History Tobacco Use Types Packs/Day Years [...] on filedocumented in this encounter Care Teams Recording Engineer Relationship Specialty Start Date End Date [place] Martini PCP - General Family Practice 10/12/19 08/18/22 [facility] [address] [place] [address] PCP - General 08/19/22 10/14/22 [place] [address] [place] [address] PCP - General 10/15/22 Roderick Morelos MD [address] [place] 124905 Cardiovascular Disease 02/03/22 Roderick Morelos MD [address] [place] [address] Assigned Heart and Vascular Provider 02/15/22 07/18/22 Magno Wood MD 420 [facility] 396 [place], [place] 771235 Otolaryngology 02/21/22 Sophie Ocasio AuD [address] [place] [address] [phone] Contaminated Land Consultant Audiology 02/21/22 Parth Ellis MD [address] [place], [place] 347725 Assigned Heart and Vascular Provider 07/19/22 07/25/22 Roderick Morelos MD [address] [place] 672825 Assigned Heart and Vascular Provider 07/26/22 08/08/22 Henny Rosales APRN ELEMENTARY SCHOOL ART TEACHER [address] [place] [phone] Assigned Heart and Vascular Provider 08/09/[address] [place] [address] [phone] Registered Dietitian Dietitian, Registered 09/02/22 Christiane Rodríguez MD 420 [facility] 396 [place], [place] 324095 Otolaryngology 11/12/22 Luis A Escobedo MD [address] [place] [address] 128985 Assigned Surgical Provider 11/01/22 11/28/22 Chely Fernandez PA-C 909 [place], [place] 406585 Assigned Surgical Provider 11/29/22 02/06/23 Jing Cadena APRN GRAPHIC MANAGER 420 [facility] 450 [place] [address] Clinical Nurse Specialist Anesthesiology 01/15/23 Radha Lopez, [facility] 909 [place], [place] 917515 Pharmacist Pharmacist 01/16/23 Luis A Escobedo MD 420 [facility] 195 [place], [place] 591745 Assigned Surgical Provider 02/07/23 04/15/23 Geri Loza PA-C 909 [place], [place] 582665 Assigned Surgical Provider 04/16/23 Raina Patterson APRN ELEMENTARY SCHOOL ART TEACHER [address] [facility] [address] [place] 513145 Nurse Practitioner Cardiovascular Disease 05/11/23 documented as of this encounter
--- OUTSIDE RECORDS SUMMARY | 2023-06-30 16:16 | XMS_ITS | Encounter Summary ---
Author Name Unknown Organization [place] Address [address] [place] [address] 99863 Care Team Providers Care Crew Leader/Control Room Operator Name Role Phone [facility] Primary Care Provider Unavailable Roderick Morelos MD Unavailable [phone] Roderick Morelos MD Unavailable [phone] Magno Wood MD Unavailable [phone] Sophie Ocasio AuD Unavailable +[phone] Parth Ellis MD Unavailable [phone] Roderick Morelos MD Unavailable [phone] Henny Rosales APRN MARKET RESEARCH LEAD Unavailable [phone] [facility] Jovanna Gilbert Primary Care Pr ovider Sharee Negron RD Unavailable Kaykay Duarte UNIFORM MAKER Primary Care Provider Christiane Rodríguez MD Unavailable + [phone] Luis A Escobedo MD Unavailable +[phone] Chely Fernandez PA-C Unavailable +[phone] Jing Cadena FIELD APPRAISER SCAFFOLD BUILDER Unavailable + [phone] Radha Lopez [facility] Unavailable Luis A Escobedo MD Unavailable Geri Loza PA-C Unavailable [phone] Raina Patterson APRN MARKET RESEARCH LEAD Unavailable Encounter Details Date Type Department Care Team (Late st Contact Info) Description 04/08/2022 [facility] Medical Advice [facility] [place] 6[address] [facility] [address] [place] [phone] Suha Wade, RN Social History Tobacco Use [...] Coronavirus/COVID-19? No / Unsure 04/09/2022 6:32 AM RELIGIOUS EDUCATOR documented as of this encounter Plan of Treatment Not on file documented as of this encounter Visit Diagnoses Not on filedocumented in this encounter Care Teams Crew Leader/Control Room Operator Relationship Specialty Start Date End Date [place] Martini PCP - General Family Practice 10/12/19 08/18/22 [facility], [place] [address] [place] [address] PCP - General 08/19/22 10/14/22 Kaykay Duarte UNIFORM MAKER [address] [place] [address] PCP - General 10/15/22 Roderick Morelos MD [address] [place] [address] Cardiovascular Disease 02/03/22 Roderick Morelos MD [address] [place] [address] Assigned Heart and Vascular Provider 02/15/22 07/18/22 Magno Wood MD [address] [place] [address] Otolaryngology 02/21/22 Sophie Ocasio AuD [address] [place] [address] 149545 Tearoom Hostess Audiology 02/21/22 Parth Ellis MD [address] [place] 706085 Assigned Heart and Vascular Provider 07/19/22 07/25/22 Roderick Morelos MD [address] [place] [address] Assigned Heart and Vascular Provider 07/26/22 08/08/22 Henny Rosales, FIELD APPRAISER MARKET RESEARCH LEAD [address] [place] [phone] Assigned Heart and Vascular Provider 08/09/22 Sharee Negron, ÁNGEL [address] [place] [address] 397585 Registered Dietitian Dietitian, Registered 09/02/22 Christiane Rodríguez MD [address] [place] [address] 316175 Otolaryngology 11/12/22 Luis A Escobedo MD [address] 183455 Assigned Surgical Provider 11/01/22 11/28/22 Chely Fernandez PA-C 909 [place], [place] 562775 Assigned Surgical Provider 11/29/22 02/06/23 Jing Cadena APRN SCAFFOLD BUILDER [address] 443695 Clinical Nurse Specialist Anesthesiology 01/15/23 Radha Lopez, [facility] [address] [place] [address] 945555 Pharmacist Pharmacist 01/16/23 Luis A Escobedo MD [address] [address] Assigned Surgical Provider 02/07/23 04/15/23 Geri Loza PA-C [address] [place] [address] Assigned Surgical Provider 04/16/23 Raina Patterson APRN MARKET RESEARCH LEAD [address] [place] 990505 Nurse Practitioner Cardiovascular Disease 05/11/23 documented as of this encounter
--- OUTSIDE RECORDS SUMMARY | 2023-06-30 16:16 | XMS_ITS | Encounter Summary ---
Author Name Unknown Organization [place] Address [address] [place] [address] Care Team Providers Care Drum Maker Name Role Phone Edda Agudelo PA-C Primary Care Provider + [phone] Magno Wood MD Unavailable [phone] Elvia Nugent Talmo Primary Care Provider Unavailable Parth Ellis MD Unavailable [phone] Tati Ayala MD Unavailable [phone] Khris Butt MD Unavailable [phone] MorelosRoderick nunes MD Unavailable Roderick Morelos MD Unavailable [phone] Magno Wood MD Unavailable [phone] Sophie Ocasio Unavailable +[phone] Parth Ellis MD Unavailable +[phone] MorelosRoderick nunes MD Unavailable [phone] Henny Rosales APRN APPLICATION SUPPORT LEAD Unavailable [phone] [facility] [place] Nugent [place] Primary Care Pr ovider Sharee Negron RD Unavailable Kaykay Duarte INSURANCE SALES EXECUTIVE Primary Care Provider [phone] Christiane Rodríguez MD Unavailable +[phone] Luis A Escobedo MD Unavailable +[phone] Chely Fernandez PA-C Unavailable +[phone] CadenaJing jacob Susie FUENTES [facility] Unavailable + [phone] Radha Lopez [facility] Unavailable [phone] Luis A Escobedo MD Unavailable +[phone] Geri Loza PA-C Unavailable +[phone] Yesenia Raina FUENTES APPLICATION SUPPORT LEAD Unavailable Encounter Details Date Type Department Care Team (Late st Contact Info) Description 02/10/2008 Office Visit-[facility] Heart [facility] 6[address] [facility] [address] [place] [address] Reji Li MD 6[address] [facility] [address] [place] [address] Social History Tobacco Use Types Packs/Day [...] Referring Physician: LUIS A WORRELL Referring Clinic: [facility] CURRENT DIAGNOSES 1. - Hypercholesterolemia, 272.0 2. 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; Residence - lives with and children; Place of - [place]; Hours Worked - 30 hours per week; [...] Out COVID-19 03/19/2020 03/19/2020 03/19/2020 6:22 PM DEMONSTRATOR SEWING TECHNIQUES COVID-19 03/19/2020 03/19/2020 04/09/2020 11:3 9 PM DEMONSTRATOR SEWING TECHNIQUES Rule Out COVID-19 06/19/2021 06/19/2021 06/19/2021 1:37 AM CDT Rule Out COVID-19 10/29/2021 10/29/2021 10/29/2021 1:07 AM CDT documented as of this encounter Care Teams Drum Maker Relationship Specialty Start Date End Date Edda Agudelo PA-C [facility] [address] [address] PCP - General 05/04/12 10/11/19 [place] Martini 420 [facility] 396 [place] [address] PCP - General Family Practice 10/12/19 08/18/22 [facility] [place] Nugent Talmo [address] [place] [address] PCP - General 08/19/22 10/14/22 Kaykay Du[place] [address] [place] [address] 6[address] PCP - General 10/15/22 Magno Wood MD 420 [facility] 396 [place] [address] Otolaryngology 05/29/15 08/02/17 Parth Ellis MD [address] [place] [address] Assigned Heart and Vascular Provider 01/13/20 12/13/21 Tati Ayala MD [address] [address] [place], [place] 681080 Assigned Endocrinology Provider 01/13/20 12/29/20 Khris Butt MD [address] [place] [address] [place] [address] Assigned Heart and Vascular Provider 12/14/21 02/14/22 Roderick Morelos MD [address] [place] 361285 Cardiovascular Disease 02/03/22 Roderick Morelos MD [address] [place] 961065 Assigned Heart and Vascular Provider 02/15/22 07/18/22 Magno Wood MD 420 [facility] 396 [place] [address] Otolaryngology 02/21/22 Sophie Ocasio AuD [address] [place] [address] Gun Number Audiology 02/21/22 Parth Ellis MD [address] [place] 279335 Assigned Heart and Vascular Provider 07/19/22 07/25/22 Roderick Morelos MD [address] [place] 454385 Assigned Heart and Vascular Provider 07/26/22 08/08/22 Henny Rosales, INSULATION INSPECTOR APPLICATION SUPPORT LEAD [address] [place] [address] Assigned Heart and Vascular Provider 08/09/[address]09 [place], [place] 425595 Registered Dietitian Dietitian, Registered 09/02/22 Christiane Rodríguez MD 420 [facility] 396 [place] [address] Otolaryngology 11/12/22 Luis A Escobedo MD 420 [facility] 195 [place] [address] Assigned Surgical Provider 11/01/22 11/28/22 Chely Fernandez PA-C 909 [place] [address] Assigned Surgical Provider 11/29/22 02/06/23 Jing Cadena, INSULATION INSPECTOR CAR WASH ATTENDANT 420 [facility] 450 [place] [address] Clinical Nurse Specialist Anesthesiology 01/15/23 Radha Lopez, [facility] [address] [place] [address] 734435 Pharmacist Pharmacist 01/16/23 Luis A Escobedo MD [address] [place] [address] 195 [place], [place] 623825 Assigned Surgical Provider 02/07/23 04/15/23 Geri Loza PA-C [address] [place] [address] 285985 Assigned Surgical Provider 04/16/23 Raina Patterson APRN APPLICATION SUPPORT LEAD [address] [place] 425245 Nurse Practitioner Cardiovascular Disease 05/11/23 documented as of this encounter
--- OUTSIDE RECORDS SUMMARY | 2023-06-30 16:16 | XMS_ITS | Encounter Summary ---
Author Name Unknown Organization [place] Address [address] [place] [address] Care Team Providers Care Detailer Furniture Name Role Phone Edda Agudelo PA-C Primary Care Provider + [phone] Magno Wood MD Unavailable [phone] [place] Nugent [place] Primary Care Provider Unavailable Parth Ellis MD Unavailable [phone] Tati Ayala MD Unavailable [phone] Khris Butt MD Unavailable +[phone] MorelosRoderick nunes MD Unavailable [phone] Roderick Morelos MD Unavailable [phone] Magno Wood MD Unavailable Sophie Ocasio Unavailable +[phone] Parth Ellis MD Unavailable +[phone] MorelosRoderick nunes MD Unavailable [phone] Henny Rosales APRN UTILIZATION REVIEW SPECIALIST Unavailable +[phone] [facility] [place] Nugent [place] Primary Care Pr ovider Sharee Negron RD Unavailable Kaykay Duarte COMPUTER GAME PROGRAMMER Primary Care Provider [phone] Christiane Rodríguez MD Unavailable +[phone] Luis A Escobedo MD Unavailable + [phone] Chely Fernandez PA-C Unavailable +[phone] Jing Cadena APRN DIE REPAIR MACHINIST Unavailable + [phone] Radha Lopez [facility] Unavailable +[phone] Luis A Escobedo MD Unavailable +[phone] Geri Loza PA-C Unavailable +[phone] Yesenia Raina FUENTES UTILIZATION REVIEW SPECIALIST Unavailable +[phone] Encounter Details Date Type Department Care Team (Late st Contact Info) Description 01/25/2004 Office Visit-[facility] Heart [place] [id number] [place] [address] Unknown, DoctorMD Social History Tobacco Use [...] BOY [place] Referring Clinic: [facility] CURRENT DIAGNOSES 1. - Shortness of [...] Mother - Age 34, cancer-breast; Half-Brother - [place]; Sister 1 - CAD; SOCIAL HISTORY Alcohol [...] Nuclear Study 2 weeks 4. F/U with aLuri [place], DEBBY, ANP f/u echo, gxt, chol Reji Li M.D. documented in this encounter Plan of Treatment Not on file documented as of this encounter Visit Diagnoses Not on filedocumented in this encounter Additional Health Concerns Infection Onset Date Last Indicated Resolved Time Rule Out COVID-19 03/19/2020 03/19/2020 03/19/2020 6:22 PM BATCH ROLLER OPERATOR COVID-19 03/19/2020 03/19/2020 04/09/2020 11:3 9 PM BATCH ROLLER OPERATOR Rule Out COVID-19 06/19/2021 06/19/2021 06/19/2021 1:37 AM CDT Rule Out COVID-19 10/29/2021 10/29/2021 10/29/2021 1:07 AM CDT documented as of this encounter Care Teams Detailer Furniture Relationship Specialty Start Date End Date Edda Agudelo PA-C [facility] [address] [place] 805578 PCP - General 05/04/12 10/11/19 [place] Martnii 420 [facility] 396 [place] [address] PCP - General Family Practice 10/12/19 08/18/22 [place] [address] [facility] [place] [address] PCP - General 08/19/22 10/14/22 [place] [address] [place] [address] PCP - General 10/15/22 Magno Wood MD 420 [facility] 396 [place], [place] 487425 Otolaryngology 05/29/15 08/02/17 Parth Ellis MD [address] [place] 248005 Assigned Heart and Vascular Provider 01/13/20 12/13/21 Tati Ayala MD [address] [address] [place], [place] 071710 Assigned Endocrinology Provider 01/13/20 12/29/20 Khris Butt MD [address] [place] [address] [place] 004005 Assigned Heart and Vascular Provider 12/14/21 02/14/22 Roderick Morelos MD [address] [place] 593205 Cardiovascular Disease 02/03/22 Roderick Morelos MD [address] [place] [address] Assigned Heart and Vascular Provider 02/15/22 07/18/22 Magno Wood MD [address] 878725 Otolaryngology 02/21/22 Sophie Ocasio AuD [address] [place] [address] 909465 Doggy Daycare Activities Director Audiology 02/21/22 Parth Ellis MD [address] [place], [place] 534335 Assigned Heart and Vascular Provider 07/19/22 07/25/22 Roderick Morelos MD [address] [place], [place] 415145 Assigned Heart and Vascular Provider 07/26/22 08/08/22 Henny Rosales APRN UTILIZATION REVIEW SPECIALIST [address] [place] [address] Assigned Heart and Vascular Provider 08/09/[address] [place] [address] 046435 Registered Dietitian Dietitian, Registered 09/02/22 Christiane Rodríguez MD [address] [place] [address] 040555 Otolaryngology 11/12/22 Luis A Escobedo MD [address] [place] [address] 024415 Assigned Surgical Provider 11/01/22 11/28/22 Chely Fernandez PA-C 9 [place], [place] 125435 Assigned Surgical Provider 11/29/22 02/06/23 Jing Cadena APRN DIE REPAIR MACHINIST 420 [facility] 450 [place], [place] 576945 Clinical Nurse Specialist Anesthesiology 01/15/23 Radha Lopez, [facility] [address] [place] [address] 188435 Pharmacist Pharmacist 01/16/23 Luis A Escobedo MD 420 [facility] 195 [place], [place] 748615 Assigned Surgical Provider 02/07/23 04/15/23 Geri Loza PA-C [address] [place] [address] 343655 Assigned Surgical Provider 04/16/23 Raina Patterson APRN UTILIZATION REVIEW SPECIALIST [address] [facility] [address] [place], [place] 990675 Nurse Practitioner Cardiovascular Disease 05/11/23 documented as of this encounter
--- OUTSIDE RECORDS SUMMARY | 2023-06-30 16:16 | XMS_ITS | Encounter Summary ---
Author Name Unknown Organization [place] Address [address] [place] [address] Care Team Providers Care Talent Development Consultant Name Role Phone Edda Agduelo PA-C Primary Care Provider + [phone] Magno Wood MD Unavailable [phone] Elvia Nugent Friend Primary Care Provider Unavailable Parth Ellis MD Unavailable +[phone] Tati Ayala MD Unavailable +[phone] Khris Butt MD Unavailable +[phone] MorelosRoderick nunes MD Unavailable +[phone] Roderick Morelos MD Unavailable +[phone] Magno Wood MD Unavailable [phone] Sophie Ocasio Unavailable +[phone] Parth Ellis MD Unavailable +[phone] MorelosRoderick nunes MD Unavailable +[phone] Henny Rosales APRN HUNTER Unavailable +[phone] [facility] Elvia Nugent Friend Primary Care Pr ovider Sharee Negron RD Unavailable Kaykay Duarte LEAD INSPECTOR Primary Care Provider [phone] Christiane Rodríguez MD Unavailable +[phone] Luis A Escobedo MD Unavailable + [phone] Chely Fernandez PA-C Unavailable +[phone] Jing Cadena SUPERVISOR [employer] VP OF DIGITAL MARKETING Unavailable + [phone] Radha Lopez [facility] Unavailable [phone] Luis A Escobedo MD Unavailable + [phone] Geri Loza PA-C Unavailable +[phone] Raina Patterson SUPERVISOR [employer] HUNTER Unavailable Encounter Details Date Type Department Care Team (Late st Contact Info) Description 03/31/2006 Office Visit-[facility] [place] [address] [facility] [address] [place] [phone] Imani Ott, SUPERVISOR [employer] HUNTER [address] [facility] [address] [place] [address] Social History Tobacco Use Types Packs/Day Years [...] old Referring Physician: BOY WATSON Referring Clinic: [facility] CURRENT DIAGNOSES 1. - Hypercholesterolemia, [...] Half-Brother - [place]; Sister 1 - CAD; <FONT COLOR=#[id number]><FONT POINT=10>CARDIAC RISK FACTORS Tobacco Abuse: negative; Family [...] lives with and children; Place of - [place]; Hours Worked - 30 hours per week; [...] to participate in this patient's care. Imani Ott, N.Juaquin. documented in this encounter Plan of Treatment Not on file documented as of this encounter Visit Diagnoses Not on filedocumented in this encounter Additional Health Concerns Infection Onset Date Last Indicated Resolved Time Rule Out COVID-19 03/19/2020 03/19/2020 03/19/2020 6:22 PM RADIO SALES ACCOUNT EXECUTIVE COVID-19 03/19/2020 03/19/2020 04/09/2020 11:3 9 PM RADIO SALES ACCOUNT EXECUTIVE Rule Out COVID-19 06/19/2021 06/19/2021 06/19/2021 1:37 AM CDT Rule Out COVID-19 10/29/2021 10/29/2021 10/29/2021 1:07 AM CDT documented as of this encounter Care Teams Talent Development Consultant Relationship Specialty Start Date End Date Edda Agudelo PA-C [facility] [address] [place] [address] PCP - General 05/04/12 10/11/19 Ernestina Martini [address] [facility] [address] [place] [address] PCP - General Family Practice 10/12/19 [facility]18[facility]22 [facility] [address] [place], [place] 773787 PCP - General 08/19/22 10/14/22 [place] [address] [place] [address] PCP - General 10/15/22 Magno Wood MD [address] [facility] 396 [place], [place] 003665 Otolaryngology 05/29/15 08/02/17 Parth Ellis MD [address] [place] [place] [address] Assigned Heart and Vascular Provider 01/13/20 12/13/21 Tati Ayala MD [address] [place], [place] 00[address]60 Assigned Endocrinology Provider 01/13/20 12/29/20 Khris Butt MD [address] [facility] [address] [place] [address] Assigned Heart and Vascular Provider 12/14/21 02/14/22 Roderick Morelos MD [address] [facility] [place] [address] Cardiovascular Disease 02/03/22 Roderick Morelos MD [address] [facility] [place] [address]005 Assigned Heart and Vascular Provider 02/15/22 07/18/22 Magno Wood MD [address] [place] [address] Otolaryngology 02/21/22 Sophie Ocasio AuD [address] [place] [address] 419455 Jet Worker Audiology 02/21/22 Parth Ellis MD [address] [place] 415605 Assigned Heart and Vascular Provider 07/19/22 07/25/22 Roderick Morelos MD [address] [place] [address]85 Assigned Heart and Vascular Provider 07/26/22 08/08/22 Henny Rosales APRN HUNTER [address] [facility] [place] [phone] Assigned Heart and Vascular Provider 08/09/[address] [place] [address] [id number] Registered Dietitian Dietitian, Registered 09/02/22 Christiane Rodríguez MD [address] [place] [address] 396 [place], [place] 166185 Otolaryngology 11/12/22 Luis A Escobedo MD [address] [place] [address] 822775 Assigned Surgical Provider 11/01/22 11/28/22 Chely Fernandez PA-C [address] [place] [address] Assigned Surgical Provider 11/29/22 02/06/23 Jing Cadena, SUPERVISOR [employer] VP OF DIGITAL MARKETING [address] [place] [address] 450 [place], [place] 213375 Clinical Nurse Specialist Anesthesiology 01/15/23 Radha Lopez, [facility] [address] [place] [address] Pharmacist Pharmacist 01/16/23 Luis A Escobedo MD [address] [place] [address] 167505 Assigned Surgical Provider 02/07/23 04/15/23 Geri Loza PA-C [address] [place] [address] 482505 Assigned Surgical Provider 04/16/23 Raina Patterson, GINA HUNTER [address] [facility] [address] [place] [address] 555135 Nurse Practitioner Cardiovascular Disease 05/11/23 documented as of this encounter
--- OUTSIDE RECORDS SUMMARY | 2023-06-30 16:16 | XMS_ITS | Encounter Summary ---
Author Name Unknown Organization [place] Address [address] [place] [address] Care Team Providers Care Watch And Clock Repairer Name Role Phone [facility] [place] Primary Care Provider Unavailable Khris Butt MD Unavailable [phone] MorelosRoderick nunes MD Unavailable [phone] Roderick Morelos MD Unavailable [phone] Magno Wood MD Unavailable [phone] Sophie Ocasio Unavailable [phone] Parth Ellis MD Unavailable +[phone] MorelosRoderick nunes MD Unavailable [phone] Henny Rosales APRN POWER SHOVEL ENGINEER Unavailable [phone] [facility] Elvia Nugent [place] Primary Care Pr ovider Sharee Negron RD Unavailable Kaykay Duarte LENDING MANAGER Primary Care Provider Christiane Rodríguez MD Unavailable +[phone] Luis A Escobedo MD Unavailable [phone] Chely FernandezC Unavailable [phone] Jing Cadena APRN CREATIVE ARTS MUSIC THERAPIST Unavailable + [phone] JessicaRadha [facility] Unavailable Luis A Escobedo MD Unavailable Geri LozaC Unavailable Raina Patterson APRN POWER SHOVEL ENGINEER Unavailable Encounter Details Date Type Department Care Team (Late st Contact Info) Description 02/11/2022 MyC Medical Advice [facility] [place] [address] [facility] [address] [place] [phone] Rowena [place] Social History Tobacco Use [...] Coronavirus/COVID-19? No / Unsure 02/10/2022 4:12 PM BEAM CARRIER HAULER PUSHER documented as of this encounter Plan of Treatment Not on file documented as of this encounter Visit Diagnoses Not on filedocumented in this encounter Care Teams Watch And Clock Repairer Relationship Specialty Start Date End Date Ernestina Martini PCP - General Family Practice 10/12/19 08/18/22 [facility] [place] [address] [place], [place] 129107 PCP - General 08/19/22 10/14/22 Kaykay Duarte LENDING MANAGER [address] [place] 867107 PCP - General 10/15/22 Khris Butt MD [address] [facility] [address] [place] 128825 Assigned Heart and Vascular Provider 12/14/21 02/14/22 Roderick Morelos MD [address] [place] [address] Cardiovascular Disease 02/03/22 Roderick Morelos MD [address] [place] [address] Assigned Heart and Vascular Provider 02/15/22 07/18/22 Magno Wood MD [address] [place] [address] 839625 Otolaryngology 02/21/22 Sophie Ocasio AuD [address] [place], [place] 760615 Security Researcher Audiology 02/21/22 Parth Ellis MD [address] [place] [place] 564435 Assigned Heart and Vascular Provider 07/19/22 07/25/22 Roderick Morelos MD [address] [place] [address] Assigned Heart and Vascular Provider 07/26/22 08/08/22 Henny Rosales APRN POWER SHOVEL ENGINEER [address] [place] [phone] Assigned Heart and Vascular Provider 08/09/[address] [place], [place] 256705 Registered Dietitian Dietitian, Registered 09/02/22 Christiane Rodríguez MD 420 [facility] 396 [place], [place] 912595 Otolaryngology 11/12/22 Luis A Escobedo MD 420 [facility] 195 [place], [place] 419275 Assigned Surgical Provider 11/01/22 11/28/22 Chely Fernandez PA-C [address] [place] [address] 346685 Assigned Surgical Provider 11/29/22 02/06/23 Jing Cadena APRN CREATIVE ARTS MUSIC THERAPIST [address] [place] [address] 450 [place], [place] 223585 Clinical Nurse Specialist Anesthesiology 01/15/23 Radha Lopez, [facility] [address] [place] [address] 456755 Pharmacist Pharmacist 01/16/23 Luis A Escobedo MD [address] [place] [address] Assigned Surgical Provider 02/07/23 04/15/23 Geri Loza PA-C [address] [place] [address] 630265 Assigned Surgical Provider 04/16/23 Raina Patterson APRN POWER SHOVEL ENGINEER [address] [facility] [address] [place] 149005 Nurse Practitioner Cardiovascular Disease 2/19/24 documented as of this encounter
--- OUTSIDE RECORDS SUMMARY | 2023-06-30 16:16 | XMS_ITS | Encounter Summary ---
Author Name Unknown Organization [place] Address [address] [place] [address] Care Team Providers Care Switching Clerk Name Role Phone Edda Agudelo PA-C Primary Care Provider + [phone] Magno Wood MD Unavailable [phone] Elvia Nugent [place] Primary Care Provider Unavailable Parth Ellis MD Unavailable [phone] Tati Ayala MD Unavailable [phone] Khris Butt MD Unavailable +[phone] MorelosRoderick nunes MD Unavailable [phone] Roderick Morelos MD Unavailable Magno Wood MD Unavailable [phone] Sophie Ocasio Unavailable +[phone] Parth Ellis MD Unavailable +[phone] MorelosRoderick nunes MD Unavailable [phone] Henny Rosales APRN CMO Unavailable [phone] [facility] Elvia Nugent [place] Primary Care Pr ovider Sharee Negron RD Unavailable Kaykay Duarte HAND CHAIN MAKER Primary Care Provider [phone] Christiane Rodríguez MD Unavailable +[phone] Luis A Escobedo MD Unavailable + [phone] Chely Fernandez PA-C Unavailable +[phone] Cadena Jing Susie FUENTES DIELECTRIC TESTING MACHINE OPERATOR Unavailable + [phone] Radha Lopez [facility] Unavailable [phone] Luis A Escobedo MD Unavailable [phone] Geri Loza PA-C Unavailable +[phone] Raina Patterson GINA CMO Unavailable +[phone] Encounter Details Date Type Department Care Team (Late st Contact Info) Description 06/13/2009 Office Visit-[facility] Heart [address] [place] [phone] Lauri Canada APRN CNP NO INFO AVAILABLE 01/09/2022 Social History Tobacco Use Types Packs/Day Years Used Date Smoking Tobacco: Never Assessed Sex and Gender Information Value Date Recorded Sex Assigned at Not on file Gender Identity Not on file Sexual Orientation Not on file documented as of this encounter Progress Notes * Lauri Canada - 07/13/2009 10:04 AM CDT Progress Note Created by: Larui Canada, N.P. DATE: 06/13/2009 JIMBO OWENS DATE OF : 1970 AGE: [age] years old Referring Physician: LUIS A WORRELL Referring Clinic: [facility] CURRENT DIAGNOSES 1. - Hypercholesterolemia, 272.0 [...] well controlled. 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 Lipid profile/ALT 3 months Lauri Canada, N.P. documented in this encounter Plan of Treatment Not on file documented as of this encounter Visit Diagnoses Not on filedocumented in this encounter Additional Health Concerns Infection Onset Date Last Indicated Resolved Time Rule Out COVID-19 03/19/2020 03/19/2020 03/19/2020 6:22 PM CASINO ACCOUNTANT COVID-19 03/19/2020 03/19/202004/09/2020 11:3 9 PM CASINO ACCOUNTANT Rule Out COVID-19 06/19/2021 06/19/2021 06/19/2021 1:37 AM CDT Rule Out COVID-19 10/29/2021 10/29/2021 10/29/2021 1:07 AM CDT documented as of this encounter Care Teams Switching Clerk Relationship Specialty Start Date End Date Edda Agudelo PA-C [facility] [address] [place] [address] PCP - General 05/04/12 10/11/19 Ernestina Martini [address] [facility] [address] [place] [address] PCP - General Family Practice 10/12/19 08/18/22 [facility] [address] [place] [address] PCP - General 08/19/22 10/14/22 Kaykay Duarte, HAND CHAIN MAKER [address] [place] [address] PCP - General 10/15/22 Magno Wood MD [address] [address] Otolaryngology 05/29/15 08/02/17 Parth Ellis MD [address] [place] [address] Assigned Heart and Vascular Provider 01/13/20 12/13/21 Tati Ayala MD [address] [place] [address] Assigned Endocrinology Provider 01/13/20 12/29/20 Khris Butt MD [address] [place] [address] [place] [address] Assigned Heart and Vascular Provider 12/14/21 02/14/22 Roderick Morelos MD [address] [place] [address] Cardiovascular Disease 02/03/22 Roderick Morelos MD [address] [place] 564305 Assigned Heart and Vascular Provider 02/15/22 07/18/22 Magno Wood MD [address] [place] [address] 377385 Otolaryngology 02/21/22 Sophie Ocasio AuD [address] [place] [address] 584515 Salesperson Recreational Vehicles Audiology 02/21/22 Parth Ellis MD [address] [place] [address] Assigned Heart and Vascular Provider 07/19/22 07/25/22 Roderick Morelos MD [address] [place] [address] Assigned Heart and Vascular Provider 07/26/22 08/08/22 Henny Rosales APRN CMO [address] [place] [phone] Assigned Heart and Vascular Provider 08/09/[address] [place] [address] 577085 Registered Dietitian Dietitian, Registered 09/02/22 Christiane Rodríguez MD [address] [place] [address] 396 [place], [place] 751655 Otolaryngology 11/12/22 Luis A Escobedo MD [address] [place] [address] 762635 Assigned Surgical Provider 11/01/22 11/28/22 Chely Fernandez PA-C [address] [place] [address] 934615 Assigned Surgical Provider 11/29/22 02/06/23 Jing Cadena APRN DIELECTRIC TESTING MACHINE OPERATOR [address] [place] [address] 283005 Clinical Nurse Specialist Anesthesiology 01/15/23 Radha Lopez [facility] [address] [place] [address] 718175 Pharmacist Pharmacist 01/16/23 Luis A Escobedo MD [address] [place] [address] 465055 Assigned Surgical Provider 02/07/23 04/15/23 Geri Loza PA-C [address] [place] [address] 857145 Assigned Surgical Provider 04/16/23 Raina Patterson APRN [facility] [address] [place] [address] Nurse Practitioner Cardiovascular Disease 05/11/23 documented as of this encounter
--- OUTSIDE RECORDS SUMMARY | 2023-06-30 16:16 | XMS_ITS | Encounter Summary ---
Author Name Unknown Organization [place] Address [address] [place] [address] Care Team Providers Care Litigation Support Analyst Name Role Phone Edda Agudelo PA-C Primary Care Provider + [phone] Magno Wood MD Unavailable [phone] Elvia Nugent [place] Primary Care Provider Unavailable Parth Ellis MD Unavailable +[phone] Tati Ayala MD Unavailable +[phone] Khris Butt MD Unavailable +[phone] MorelosRoderick nunes MD Unavailable [phone] Roderick Morelos MD Unavailable +[phone] Magno Wood MD Unavailable [phone] Sophie Ocasio Unavailable +[phone] Parth Ellis MD Unavailable +[phone] MorelosRoderick nunes MD Unavailable [phone] Henny Rosales APRN MANAGER FORENSIC Unavailable +[phone] [facility] [place]via Nugent [place] Primary Care Pr ovider Sharee Negron RD Unavailable Kaykay Duarte LOOM TECHNICIAN Primary Care Provider [phone] Christiane Rodríguez MD Unavailable +[phone] Luis A Escobedo MD Unavailable + Chely Fernandez PA-C Unavailable +[phone] CadenaJing jacob Susie FUENTES [facility] Unavailable + [phone] Radha Lopez [facility] Unavailable [phone] Luis A Escobedo MD Unavailable +[phone] Geri Loza PA-C Unavailable +[phone] Yesenia Raina FUENTES MANAGER FORENSIC Unavailable [phone] Encounter Details Date Type Department Care Team (Late st Contact Info) Description 12/16/2005 Office Visit-[facility] 6[address] [facility] [address] [place] [address] Reji Li MD 6405 [facility] [address] [place] [address] Social History Tobacco Use Types [...] BOY WATSON Referring Clinic[facility] CURRENT DIAGNOSES 1. - Hypercholesterolemia, [...] lives with and children; Place of - [place]; Hours Worked - 30 hours per week; [...] valve. She just had cholesterols done at [facility] yesterday. She will call us next week [...] valve. She just had cholesterols done at [facility] yesterday. She will call us next week for the results to determine if weneed to increase her Vytorin. Total consult time: 25 minutes, greater than 50% counseling. Reji Li M.D./[id number] cc:Luis A Vincent M.D. documented in this encounter Plan of Treatment Not on file documented as of this encounter Visit Diagnoses Not on filedocumented in this encounter Additional Health Concerns Infection Onset Date Last Indicated Resolved Time Rule Out COVID-19 03/19/2020 03/19/2020 03/19/2020 6:22 PM HYDROLOGIST COVID-19 03/19/2020 03/19/2020 04/09/2020 11:3 9 PM HYDROLOGIST Rule Out COVID-19 06/19/2021 06/19/2021 06/19/2021 1:37 AM CDT Rule Out COVID-19 10/29/2021 10/29/2021 10/29/2021 1:07 AM CDT documented as of this encounter Care Teams Litigation Support Analyst Relationship Specialty Start Date End Date Edda Agudelo PA-C [facility] [address] [place] [address] PCP - General 05/04/12 10/11/19 Ernestina Martini [address] [facility] [address] [facility] 396 [place] [address] PCP - General Family Practice 10/12/19 08/18/22 [facility] [place]via Nugent [place] [address] [place] [address] PCP - General 08/19/22 10/14/22 [place] [address] [place] [address] PCP - General 10/15/22 Magno Wood MD 420 [facility] 396 [place] [address] Otolaryngology 05/29/15 08/02/17 Parth Ellis MD [address] [place] [address] Assigned Heart and Vascular Provider 01/13/20 12/13/21 Tati Ayala MD [address] [place], [place] 730310 Assigned Endocrinology Provider 01/13/20 12/29/20 Khris Butt MD [address] [facility] [address] [place] [address] Assigned Heart and Vascular Provider 12/14/21 02/14/22 Roderick Morelos MD [address] [place] [address] Cardiovascular Disease 02/03/22 Roderick Morelos MD [address] [place] [address] Assigned Heart and Vascular Provider 02/15/22 07/18/22 Magno Wood MD [address] [place] [address] 396 [place], [place] 966705 Otolaryngology 02/21/22 Sophie Ocasio AuD [address] [place], [place] 057135 Human Anatomy Teacher Audiology 02/21/22 Parth Ellis MD [address] [place] 562715 Assigned Heart and Vascular Provider 07/19/22 07/25/22 Roderick Morelos MD [address] [place] [address] Assigned Heart and Vascular Provider 07/26/22 08/08/22 Henny Rosales APRN MANAGER FORENSIC [address] [place] [phone] Assigned Heart and Vascular Provider 08/09/[address] [place], [place] 513845 Registered Dietitian Dietitian, Registered 09/02/22 Christiane Rodríguez MD 420 [facility] 396 [place], [place] 293785 Otolaryngology 11/12/22 Luis A Escobedo MD [address] [place] [address] 195 [place], [place] 176395 Assigned Surgical Provider 11/01/22 11/28/22 hCely Fernandez PA-C [address] [place] [address] 449595 Assigned Surgical Provider 11/29/22 02/06/23 Jing Cadena APRN DIRECTOR FINANCIAL SERVICES [address] [place] [address] 450 [place], [place] 737295 Clinical Nurse Specialist Anesthesiology 01/15/23 Radha Lopez, [facility] [address] [place] [address] 846815 Pharmacist Pharmacist 01/16/23 Luis A Escobedo MD [address] [place] [address] 773915 Assigned Surgical Provider 02/07/23 04/15/23 Geri Loza PA-C [address] [place] [address] 864605 Assigned Surgical Provider 04/16/23 Raina Patterson, GINA MANAGER FORENSIC [address] [facility] [address] [place] 363045 Nurse Practitioner Cardiovascular Disease 05/11/23 documented as of this encounter
--- OUTSIDE RECORDS SUMMARY | 2023-06-30 16:16 | XMS_ITS | Encounter Summary ---
Author Name Unknown Organization [facility] Address [address] [place] [address] Care Team Providers Care Staff Nuclear Weapons Officer Name Role Phone Elvia Nugent [place] Primary Care Provider Unavailable Roderick Morelos MD Unavailable [phone] Magno Wood MD Unavailable [phone] Sophie Ocasio Unavailable [phone] Henny Rosales BENEFITS SPECIALIST JEWELRY STORE MANAGER Unavailable +[phone] [facility] [place] Primary Care Pr ovider Sharee Negron RD Unavailable Kaykay Duarte AEROSPACE ASSEMBLER Primary Care Provider [phone] Christiane Rodríguez MD Unavailable + [phone] Luis A Escobedo MD Unavailable +[phone] Chely FernandezC Unavailable +[phone] Jing Cadena BENEFITS SPECIALIST SUPERVISOR RECLAMATION Unavailable + [phone] Radha Lopez [facility] Unavailable [phone] Luis A Escobedo MD Unavailable +[phone] Geri Loza PAEddaC Unavailable +[phone] Raina Patterson BENEFITS SPECIALIST JEWELRY STORE MANAGER Unavailable Encounter Details Date Type Department Care Team (Late st Contact Info) Description 08/16/2022 [facility] [address] 4th [place] [address] Kang Griffiths Social History Tobacco [...] on filedocumented in this encounter Care Teams Staff Nuclear Weapons Officer Relationship Specialty Start Date End Date Ernestina Martini PCP - General Family Practice 10/12/19 08/18/22 [facility] [place] [address] [place] [address] PCP - General 08/19/22 10/14/22 [place] [address] [place] [address] PCP - General 10/15/22 Roderick Morelos MD [address] [place] [address] Cardiovascular Disease 02/03/22 Magno Wood MD [address] [facility] [address] [place], [place] 821675 Otolaryngology 02/21/22 Sophie Ocasio AuD 9 [place], [place] 830165 Snowboard Designer Audiology 02/21/22 Henny Rosales APRN JEWELRY STORE MANAGER [address] [place] [phone] Assigned Heart and Vascular Provider 08/09/[address] [place] [address] [phone] Registered Dietitian Dietitian, Registered 09/02/22 Christiane Rodríguez MD [address] [place] [address] [address] [place] [address] Otolaryngology 11/12/22 Luis A Escobedo MD 420 [facility] [address] [place] [address] Assigned Surgical Provider 11/01/22 11/28/22 Chely Fernandez PA-C [address] [place] [address] [phone] Assigned Surgical Provider 11/29/22 02/06/23 Jing Cadena APRN SUPERVISOR RECLAMATION 420 [facility] [address] [place] [address] Clinical Nurse Specialist Anesthesiology 01/15/23 Radha Lopez [facility] [address] [place] [address] [phone] Pharmacist Pharmacist 01/16/23 Luis A Escobedo MD 420 [facility] [address] [place], [place] 631775 Assigned Surgical Provider 02/07/23 04/15/23 Geri Loza PA-C 909 [place], [place] 970135 Assigned Surgical Provider 04/16/23 Raina Patterson APRN JEWELRY STORE MANAGER [address] [place], [place] 636265 Nurse Practitioner Cardiovascular Disease 05/11/23 documented as of this encounter
--- OUTSIDE RECORDS SUMMARY | 2023-06-30 16:16 | XMS_ITS | Encounter Summary ---
Author Name Unknown Organization [place] Address [address] [place] [address] Care Team Providers Care Senior Financial Analyst Name Role Phone Edda Agudelo PA-C Primary Care Provider + [phone] Magno Wood MD Unavailable [phone] Elvia Nugent [place] Primary Care Provider Unavailable Parth Ellis MD Unavailable +[phone] Tati Ayala MD Unavailable +[phone] Khris Butt MD Unavailable +[phone] MorelosRoderick nunes MD Unavailable +[phone] Roderick Morelos MD Unavailable +[phone] Magno Wood MD Unavailable [phone] Sophie Ocasio Unavailable +[phone] Parth Ellis MD Unavailable +[phone] MorelosRoderick nunes MD Unavailable +[phone] Henny Rosales APRN ECOLOGY TEACHER Unavailable [phone] [facility] Elvia Nugent [place] Primary Care Pr ovider Sharee Negron RD Unavailable Kaykay Duarte RULES EXAMINER Primary Care Provider [phone] Christiane Rodríguez MD Unavailable +[phone] Luis A Escobedo MD Unavailable + [phone] Chely Fenrandez PA-C Unavailable +[phone] CadenaJing APRN SUBWAY GUARD Unavailable + [phone] Radha Lopez [facility] Unavailable [phone] Luis A Escobedo MD Unavailable +[phone] Geri Loza PA-C Unavailable +[phone] Raina Patterson GINA ECOLOGY TEACHER Unavailable +[phone] Encounter Details Date Type Department Care Team (Late st Contact Info) Description 12/06/2004 Office Visit-[facility] [address] [place] [address] Unknown, DoctorMD Social History Tobacco [...] old Referring Physician: BOY WATSON Referring Clinic: [facility] CURRENT DIAGNOSES 1. - Hypercholesterolemia, 272.0 [...] and labs HISTORY OF PRESENT ILLNESS </B><FONT FACE=Contact Acid Plant Operator New> Jimbo Owens is a pleasant, 34-year-old [...] cholesterol 194, ratio 5.4, ALT 14. Her [place] 10-year risk score is 1%. According to that, her LDL cholesterol goal should be less than 160, although given her risk factors and family history, she may certainly benefit moth exterminator from an LDL cholesterol between 100-120. Jimbo, [...] mcg/inh and Zocor 20 mg IMPRESSIONS/PLAN </B><FONT FACE=Contact Acid Plant Operator New>1) Family history of coronary artery disease [...] Out COVID-19 03/19/2020 03/19/2020 03/19/2020 6:22 PM SUPERVISORY CIVIL ENGINEER COVID-19 03/19/2020 03/19/2020 04/09/2020 11:3 9 PM SUPERVISORY CIVIL ENGINEER Rule Out COVID-19 06/19/2021 06/19/2021 06/19/2021 1:37 AM CDT Rule Out COVID-19 10/29/2021 10/29/2021 10/29/2021 1:07 AM CDT documented as of this encounter Care Teams Senior Financial Analyst Relationship Specialty Start Date End Date Edda Agudelo PA-C [facility] [address] [address] PCP - General 05/04/12 10/11/19 Ernestina Martini [address] [address] PCP - General Family Practice 10/12/19 08/18/22 [facility] Jovanna [place] [address] [place] [address] PCP - General 08/19/22 10/14/22 Kaykay Duarte, RULES EXAMINER [address] [place], [place] 027147 PCP - General 10/15/22 Magno Wood MD [address] 614575 Otolaryngology 05/29/15 08/02/17 Parth Ellis MD [address] [place] 911415 Assigned Heart and Vascular Provider 01/13/20 12/13/21 Tati Ayala MD [address] [address] [place], [place] 863140 Assigned Endocrinology Provider 01/13/20 12/29/20 Khris Butt MD [address] [facility] [address] [place] 758935 Assigned Heart and Vascular Provider 12/14/21 02/14/22 Roderick Morelos MD [address] [place] [address] MD Cardiovascular Disease 02/03/22 Roderick Morelos MD [address] [place] 229865 Assigned Heart and Vascular Provider 02/15/22 07/18/22 Magno Wood MD [address] [place] [address] 396 [place], [place] 763285 Otolaryngology 02/21/22 Sophie Ocasio AuD 909 [place], [place] 549375 Operations Lead Audiology 02/21/22 Parth Ellis MD [address] [place] 364055 Assigned Heart and Vascular Provider 07/19/22 07/25/22 Roderick Morelos MD [address] [place] [address] Assigned Heart and Vascular Provider 07/26/22 08/08/22 Henny Rosales APRN ECOLOGY TEACHER [address] [place] [phone] Assigned Heart and Vascular Provider 08/09/[address] [place] [address] [phone] Registered Dietitian Dietitian, Registered 09/02/22 Christiane Rodríguez MD [address] [place] [address] 396 [place], [place] 515755 Otolaryngology 11/12/22 Luis A Escobedo MD [address] [place] [address] 975765 Assigned Surgical Provider 11/01/22 11/28/22 Chely Fernandez PA-C [address] [place] [address] 104795 Assigned Surgical Provider 11/29/22 02/06/23 Jing Cadena APRN SUBWAY GUARD [address] [place] [address] 450 [place], [place] 678595 Clinical Nurse Specialist Anesthesiology 01/15/23 Radha Lopez, [facility] [address] [place] [address] Pharmacist Pharmacist 01/16/23 Luis A Escobedo MD [address] [place] [address] 195 [place] [address] Assigned Surgical Provider 02/07/23 04/15/23 Geri Loza PA-C [address] [place] [address] Assigned Surgical Provider 04/16/23 Raina Patterson APRN ECOLOGY TEACHER [address] [place] [address] Nurse Practitioner Cardiovascular Disease 05/11/23 documented as of this encounter
--- OUTSIDE RECORDS SUMMARY | 2023-06-30 16:16 | XMS_ITS | Encounter Summary ---
Author Name Unknown Organization [place] Address [address] [place] [address] Care Team Providers Care Interactive Media Marketing Director Name Role Phone Roderick Morelos MD Unavailable [phone] Magno Wood MD Unavailable [phone] Sophie Ocasio Unavailable +[phone] Henny Rosales FUNERAL HOME MAKEUP ARTIST ARCHITECTURAL INSPECTOR Unavailable +[phone] [facility] Primary Care Pr ovider Sharee Negron RD Unavailable Kaykay Duarte TRAFFIC INVESTIGATOR Primary Care Provider [phone] Christiane Rodríguez MD Unavailable [phone] Luis A Escobedo MD Unavailable +[phone] Chely Fernandez PA-C Unavailable +[phone] Jing Cadena FUNERAL HOME MAKEUP ARTIST MUSIC EDUCATION DIRECTOR Unavailable + [phone] Radha Lopez [facility] Unavailable +[phone] Luis A Escobedo MD Unavailable [phone] Geri Loza PAEddaC Unavailable [phone] Raina Patterson FUNERAL HOME MAKEUP ARTIST ARCHITECTURAL INSPECTOR Unavailable [phone] Encounter Details Date Type Department Care Team (Late st Contact Info) Description 08/19/2022 Telephone [facility] [place] [address] [place] [address] 4th [place] [address] Geri Loza PA-C 909 [place] [address] Social History Tobacco Use Types Packs/Day Years [...] her insurance won't pay for them at [facility] and she needs the lab orders sent to [facility] in [place]. Please send myc msg to pt once lab orders sent. documented in this encounter Plan of Treatment Not on file documented as of this encounter Visit Diagnoses Not on filedocumented in this encounter Care Teams Interactive Media Marketing Director Relationship Specialty Start Date End Date [place], [place] [address] [place], [place] 790237 PCP - General 08/19/22 10/14/22 [place] [address] [place] [address] PCP - General 10/15/22 Roderick Morelos MD [address] [place] [address] Cardiovascular Disease 02/03/22 Magno Wood MD [address] [place] [address] 396 [place] [address] Otolaryngology 02/21/22 Sophie Ocasio AuD [address] [place] [address] 297545 City Treasurer Audiology 02/21/22 Henny Rosales APRN ARCHITECTURAL INSPECTOR [address] [place] [address] Assigned Heart and Vascular Provider 08/09/[address] [place] [address] 862925 Registered Dietitian Dietitian, Registered 09/02/22 Christiane Rodríguez MD [address] [place] [address] 220185 Otolaryngology 11/12/22 Luis A Escobedo MD [address] [place] [address] 873565 Assigned Surgical Provider 11/01/22 11/28/22 Chely Fernandez PA-C [address] [place] [address] 237985 Assigned Surgical Provider 11/29/22 02/06/23 Jing Cadena APRN MUSIC EDUCATION DIRECTOR 420 [facility] 450 [place], [place] 428675 Clinical Nurse Specialist Anesthesiology 01/15/23 Radha Lopez, [facility] 909 [place], [place] 365065 Pharmacist Pharmacist 01/16/23 Luis A Escobedo MD 420 [facility] 195 [place], [place] 310145 Assigned Surgical Provider 02/07/23 04/15/23 Geri Loza PA-C 909 [place], [place] 723365 Assigned Surgical Provider 04/16/23 Raina Patterson, GINA ARCHITECTURAL INSPECTOR [address] [place] 527345 Nurse Practitioner Cardiovascular Disease 05/11/23 documented as of this encounter
--- OUTSIDE RECORDS SUMMARY | 2023-06-30 16:16 | XMS_ITS | Encounter Summary ---
Author Name Unknown Organization [facility] Address [address] [place] [address] Care Team Providers Care Window And Door Installer Name Role Phone [facility] Care Provider Unavailable Parth Ellis MD Unavailable [phone] Tati Ayala MD Unavailable +[phone] Khris Butt MD Unavailable +[phone] MorelosRoderick nunes MD Unavailable [phone] Roderick Morelos MD Unavailable [phone] Magno Wood MD Unavailable [phone] Sophie Ocasio Unavailable +[phone] Parth Ellis MD Unavailable +[phone] Roderick Morelos MD Unavailable [phone] Henny Rosales APRN SODA DISPENSER Unavailable [phone] [facility] J[place] Primary Care Pr ovider Sharee Negron RD Unavailable Kaykay Duarte PRODUCTION ASSISTANT Primary Care Provider [phone] Christiane Rodríguez MD Unavailable +[phone] Luis A Escobedo MD Unavailable +[phone] Chely Fernandez PA-C Unavailable Cadena, Jing Susie SENIOR SALES ASSISTANT DIABETES SOLUTIONS SPECIALIST Unavailable +[phone] Jessica Radha Estuardo [facility] Unavailable Luis A Escobedo MD Unavailable +[phone] MariselGeri nunesMary Jo PA-C Unavailable Raina Patterson SENIOR SALES ASSISTANT SODA DISPENSER Unavailable Encounter Details Date Type Department Care [...] documented as of this encounter Care Teams Window And Door Installer Relationship Specialty Start Date End Date Ernestina Martini PCP - General Family Practice 10/12/19 [facility] [address] [place], [place] 278817 PCP - General 08/19/22 10/14/22 [place] [address] [place] [address] PCP - General 10/15/22 Parth Ellis MD [address] [place] 651805 Assigned Heart and Vascular Provider 01/13/20 12/13/21 Tati Ayala MD [address] [place], [place] 373040 Assigned Endocrinology Provider 01/13/20 12/29/20 Khris Butt MD [address] [facility] [address] [place] [address] Assigned Heart and Vascular Provider 12/14/21 02/14/22 Roderick Morelos MD [address] [place] [address] Cardiovascular Disease 02/03/22 Roderick Morelos MD [address] [place] [address] Assigned Heart and Vascular Provider 02/15/22 07/18/22 Magno Wood MD [address] [place] [address] 866245 Otolaryngology 02/21/22 Sophie Ocasio AuD [address] [place] [address] 122195 [employer] Combination Teacher Audiology 02/21/22 Parth Elils MD [address] [place] 411635 Assigned Heart and Vascular Provider 07/19/22 07/25/22 Roderick Morelos MD [address] [place] [address] Assigned Heart and Vascular Provider 07/26/22 08/08/22 Henny Rosales APRN SODA DISPENSER [address] [place] [address] Assigned Heart and Vascular Provider 08/09/[address] [place], [place] 281845 Registered Dietitian Dietitian, Registered 09/02/22 Christiane Rodríguez MD [address] [place] [address] 396 [place], [place] 898225 Otolaryngology 11/12/22 Luis A Escobedo MD 420 [facility] 195 [place], [place] 354085 Assigned Surgical Provider 11/01/22 11/28/22 Chely Fernandez PA-C 909 [place], [place] 200495 Assigned Surgical Provider 11/29/22 02/06/23 Jing Cadena APRN DIABETES SOLUTIONS SPECIALIST 420 [facility] 450 [place], [place] 917355 Clinical Nurse Specialist Anesthesiology 01/15/23 Radha Lopez, [facility] [address] [place] [address] Pharmacist Pharmacist 01/16/23 Luis A Escobedo MD [address] [place] [address] Assigned Surgical Provider 02/07/23 04/15/23 Geri Loza PA-C [address] [place] [address] Assigned Surgical Provider 04/16/23 Raina Patterson APRN SODA DISPENSER [address] [place] [address] Nurse Practitioner Cardiovascular Disease 05/11/23 documented as of this encounter
--- OUTSIDE RECORDS SUMMARY | 2023-06-30 16:16 | XMS_ITS | Encounter Summary ---
Author Name Unknown Organization [facility] Address [address] [place] [address] Care Team Providers Care Ophthalmic Tech Name Role Phone [facility] Primary [facility] Provider Unavailable Roderick Morelos MD Unavailable [phone] Roderick Morelos MD Unavailable [phone] Magno Wood MD Unavailable [phone] Sophie Ocasio AuD Unavailable +[phone] Parth Ellis MD Unavailable +[phone] Roderick Morelos MD Unavailable [phone] Henny Rosales APRN SHANK TAPER Unavailable [phone] [facility] Jovanna [place] Primary Care Pr ovider Sharee Negron RD Unavailable Kaykay Duarte RESISTANCE WELDER Primary Care Provider Christiane Rodríguez MD Unavailable + [phone] Luis A Escobedo MD Unavailable +[phone] Chely Fernandez PA-C Unavailable +[phone] Jing Cadena MAINTENANCE MACHINE REPAIRER DATA RECOVERY PLANNER Unavailable + [phone] Radha Lopez [facility] Unavailable Luis A Escobedo MD Unavailable Geri Loza PA-C Unavailable Raina Patterson APRN SHANK TAPER Unavailable [phone] Encounter Details Date Type Department Care Team (Late st Contact Info) Description 05/14/2022 [facility] Medical Advice [facility] [address] 4th [place] [address] Jessi Mantilla LPN Social History [...] on filedocumented in this encounter Care Teams Ophthalmic Tech Relationship Specialty Start Date End Date Ernestina Martini PCP - General Family Practice 10/12/19 08/18/22 [facility] [place] [address] [place] [address] PCP - General 08/19/22 10/14/22 [place] [address] [place] [address] PCP - General 10/15/22 Roderick Morelos MD [address] [place] 029645 Cardiovascular Disease 02/03/22 Roderick Morelos MD [address] [place] [address] Assigned Heart and Vascular Provider 02/15/22 07/18/22 Magno Wood MD 420 [facility] 396 [place], [place] 419355 Otolaryngology 02/21/22 Sophie Ocasio AuD [address] [place] [address] 182655 Exercise Science Instructor Audiology 02/21/22 Parth Ellis MD [address] [place], [place] 5529[address] Assigned Heart and Vascular Provider 07/19/22 07/25/22 Roderick Morelos MD [address] [place] 103865 Assigned Heart and Vascular Provider 07/26/22 08/08/22 Henny Rosales APRN SHANK TAPER [address] [place] [address] Assigned Heart and Vascular Provider 08/09/[address] [place] [address] Registered Dietitian Dietitian, Registered 09/02/22 Christiane Rodríguez MD 420 [facility] 396 [place], [place] 407605 Otolaryngology 11/12/22 Luis A Escobedo MD [address] [place] [address] 995305 Assigned Surgical Provider 11/01/22 11/28/22 Chely Fernandez PA-C 909 [place], [place] 452025 Assigned Surgical Provider 11/29/22 02/06/23 Jing Cadena APRN DATA RECOVERY PLANNER 420 [facility] 450 [place] [address] Clinical Nurse Specialist Anesthesiology 01/15/23 Radha Lopez, [facility] [address] [place] [address] 114995 Pharmacist Pharmacist 01/16/23 Luis A Escobedo MD 420 [facility] 195 [place], [place] 652675 Assigned Surgical Provider 02/07/23 04/15/23 Geri Loza PA-C [address] [place] [address] 501825 Assigned Surgical Provider 04/16/23 Raina Patterson, GINA SHANK TAPER [address] [place] 180595 Nurse Practitioner Cardiovascular Disease 05/11/23 documented as of this encounter
--- OUTSIDE RECORDS SUMMARY | 2023-06-30 16:16 | XMS_ITS | Encounter Summary ---
Author Name Unknown Organization [place] Address [address] [place] [address] Care Team Providers Care Auditing Clerk Name Role Phone Barrington Agudelo PA-C Primary Care Provider + [phone] Magno Wood MD Unavailable [phone] Elvia Nugent [place] Primary Care Provider Unavailable Parth Ellis MD Unavailable +[phone] Tati Ayala MD Unavailable [phone] Khris Butt MD Unavailable +[phone] MorelosRoderick nunes MD Unavailable [phone] Roderick Morelos MD Unavailable [phone] Magno Wood MD Unavailable [phone] Sophie Ocasio Unavailable +[phone] Parth Ellis MD Unavailable +[phone] MorelosRoderick nunes MD Unavailable [phone] Henny Rosales APRN PLATFORM WORKER Unavailable [phone] [facility] Elvia Nugent [place] Primary Care Pr ovider Sharee Negron RD Unavailable Kaykay Duarte PUBLICATIONS INSPECTOR Primary Care Provider [phone] Christiane Rodríguez MD Unavailable [phone] Luis A Escobedo MD Unavailable + [phone] Chely Fernandez PA-C Unavailable +[phone] Cadena Jing Susie FUENTES MANUFACTURING INSPECTOR Unavailable + [phone] Radha Lopez [facility] Unavailable [phone] Luis A Escobedo MD Unavailable +[phone] Geri Loza PA-C Unavailable +[phone] Yesenia Raina FUETNES PLATFORM WORKER Unavailable [phone] Encounter Details Date Type Department Care Team (Late st Contact Info) Description 05/07/2011 Office Visit-[facility] [address] [facility] [address] [place] [phone] Reji Li MD [address] [facility] [address] [place] [address] Social History Tobacco Use Types [...] old Referring Physician: BARRINGTON LARA Referring Clinic: [facility] CURRENT DIAGNOSES 1. - Hypercholesterolemia, 272.0 2. [...] was 287. ALT was 17. From her mexican food cook, her electrolytes in October werenormal. Creatinine was normal. She tells me that her TSH with Dr. Ruegemer was normal. At this time, I talked [...] Mother - Age 34, cancer-breast; Half-Brother - [place]; Sister 1 - CAD; SOCIAL HISTORY Alcohol [...] 1 day 2. F/U with Lauri Canada, MSN, ANP 2 months 3. Lipid profile/ALT 2 months Reji Li M.D. documented in this encounter Plan of Treatment Not on file documented as of this encounter Visit Diagnoses Not on filedocumented in this encounter Additional Health Concerns Infection Onset Date Last Indicated Resolved Time Rule Out COVID-19 03/19/2020 03/19/202003/1903/19/2020 6:22 PM CHAR FILTER TANK TENDER COVID-19 03/19/2020 03/19/2020 04/09/2020 11:3 9 PM CHAR FILTER TANK TENDER Rule Out COVID-19 06/19/2021 06/19/2021 06/19/2021 1:37 AM CDT Rule Out COVID-19 10/29/2021 10/29/2021 10/29/2021 1:07 AM CDT documented as of this encounter Care Teams Auditing Clerk Relationship Specialty Start Date End Date Barrington Agudelo PA-C [facility] [address] [place] [address] PCP - General 05/04/12 10/11/19 Ernestina Martini [address] [place] [address] [facility] [address] [place] [address] PCP - General Family Practice 10/12/19 08/18/22 [facility] [place] [address] [place], [place] 598917 PCP - General 08/19/22 10/14/22 [place] [address] [place], [place] 412827 PCP - General 10/15/22 Magno Wood MD [address] 964565 Otolaryngology 05/29/15 08/02/17 Parth Ellis MD [address] [place] 664525 Assigned Heart and Vascular Provider 01/13/20 12/13/21 Tati Ayala MD [address] [place], [place] 165110 Assigned Endocrinology Provider 01/13/20 12/29/20 Khris Butt MD [address] [place] [address] Assigned Heart and Vascular Provider 12/14/21 02/14/22 Roderick Morelos MD [address] [place] [address] MD Cardiovascular Disease 02/03/22 Roderick Morelos MD [address] [place] [address] Assigned Heart and Vascular Provider 02/15/22 07/18/22 Magno Wood MD [address] [place] [address] [phone] Otolaryngology 02/21/22 Sophie Ocasio AuD [address] [place] [address] [phone] Combat Systems Engineer Audiology 02/21/22 Parth Ellis MD [address] [place] [address] Assigned Heart and Vascular Provider 07/19/22 07/25/22 Roderick Morelos MD [address] [place] [address] Assigned Heart and Vascular Provider 07/26/22 08/08/22 Henny Rosales, BRICK SETTER PLATFORM WORKER [address] [place] [address] Assigned Heart and Vascular Provider 08/09/[address] [place], [place] 425565 Registered Dietitian Dietitian, Registered 09/02/22 Christiane Rodríguez MD 420 [facility] [address] [place], [place] 607[address] Otolaryngology 11/12/22 Luis A Escobedo MD [address] [place] [address] [id number] Assigned Surgical Provider 11/01/22 11/28/22 Chely Fernandez PA-C [address] [place] [address] [phone] Assigned Surgical Provider 11/29/22 02/06/23 Jing Cadena, BRICK SETTER MANUFACTURING INSPECTOR [address] [place] [address] [address] [place], [place] 434305 Clinical Nurse Specialist Anesthesiology 01/15/23 Radha Lopez, [facility] [address] [place] [address] [phone] Pharmacist Pharmacist 01/16/23 Luis A Escobedo MD [address] [place] [address] [address] [place], [place] 895175 Assigned Surgical Provider 02/07/23 04/15/23 Geri Loza PA-C [address] [place] [address] Assigned Surgical Provider 04/16/23 Raina Patterson APRN PLATFORM WORKER [address] [place] [address] Nurse Practitioner Cardiovascular Disease 05/11/23 documented as of this encounter
--- OUTSIDE RECORDS SUMMARY | 2023-06-30 16:16 | XMS_ITS | Encounter Summary ---
Author Name Unknown Organization [facility] Address [address] [place] [address] Care Team Providers Care Mental Hygiene Consultant Name Role Phone Edda Agudelo PA-C Primary Care Provider + [phone] Magno Wood MD Unavailable [phone] Elvia Nugent [place] Primary Care Provider Unavailable Parth Ellis MD Unavailable [phone] Tati Ayala MD Unavailable [phone] Khris Butt MD Unavailable [phone] MorelosRoderick nunes MD Unavailable [phone] Roderick Morelos MD Unavailable [phone] Magno Wood MD Unavailable [phone] Sophie Ocasio Unavailable [phone] Parth Ellis MD Unavailable [phone] MorelosRoderick nunes MD Unavailable [phone] Henny Rosales APRN CIRCULATION SUPERVISOR Unavailable [phone] [facility] Elvia Nugent [place] Primary Care Pr ovider Sharee Negron RD Unavailable Kaykay Duarte EMERGENCY DOCTOR Primary Care Provider [phone] Christiane Rodríguez MD Unavailable [phone] Luis A Escobedo MD Unavailable + [phone] Chely Fernandez PA-C Unavailable +[phone] Cadena Jing Susie FUENTES SAMPLE MAKER HAND Unavailable + [phone] Radha Lopez [facility] Unavailable [phone] Luis A Escobedo MD Unavailable +[phone] Geri Loza PA-C Unavailable +[phone] Raina Patterson GINA CIRCULATION SUPERVISOR Unavailable [phone] Encounter Details Date Type Department Care Team (Late st Contact Info) Description 04/20/2009 Office Visit-[facility] [address] [place] [address] [place] [phone] Lauri Canada APRN CNP NO INFO AVAILABLE 01/09/2022 Social History Tobacco Use Types Packs/Day Years Used Date Smoking Tobacco: Never Assessed Sex and Gender Information Value Date Recorded Sex Assigned at Not on file Gender Identity Not on file Sexual Orientation Not on file documented as of this encounter Progress Notes * Lauri Canada - 04/28/2009 12:09 PM CST Progress Note Created by: Lauri Canada, N.P. DATE: 04/20/2009 JIMBO OWENS DATE OF : 1970 AGE: [age] years old Referring Physician: LUIS A WORRELL Referring Clinic: [facility] CURRENT DIAGNOSES 1. - Hypercholesterolemia, 272.0 [...] test. I will reorder that and see bochantell to review all these results. She denies [...] Mother - Age 34, cancer-breast; Half-Brother - [place]; Sister 1 - CAD; CARDIAC RISK FACTORS [...] lives with and children; Place of - [place]; Hours Worked - 30 hours per week; [...] Out COVID-19 03/19/2020 03/19/2020 03/19/2020 6:22 PM MUSIC BOX MECHANIC COVID-19 03/19/2020 03/19/2020 04/09/2020 11:3 9 PM MUSIC BOX MECHANIC Rule Out COVID-19 06/19/2021 06/19/2021 06/19/2021 1:37 AM CDT Rule Out COVID-19 10/29/2021 10/29/2021 10/29/2021 1:07 AM CDT documented as of this encounter Care Teams Mental Hygiene Consultant Relationship Specialty Start Date End Date Edda Agudelo PA-C [facility] [address] [address] PCP - General 05/04/12 10/11/19 [facility] [address] [address] PCP - General Family Practice 10/12/19 08/18/22 [facility] [address] [place] [address] PCP - General 08/19/22 10/14/22 [place] [address] [place] [address] PCP - General 10/15/22 Magno Wood MD [address] [address] Otolaryngology 05/29/15 08/02/17 Parth Ellis MD [address] [place] [address] Assigned Heart and Vascular Provider 01/13/20 12/13/21 Tati Ayala MD [address] [place] [address] Assigned Endocrinology Provider 01/13/20 12/29/20 Khris Butt MD [address] [place], [place] 442345 Assigned Heart and Vascular Provider 12/14/21 02/14/22 Roderick Morelos MD [address] [place] 499345 MD Cardiovascular Disease 02/03/22 Roderick Morelos MD [address] [place] 988735 Assigned Heart and Vascular Provider 02/15/22 07/18/22 Magno Wood MD [address] [place] [address] 396 [place], [place] 436615 Otolaryngology 02/21/22 Sophie Ocasio AuD [address] [place], [place] 885725 Judo Instructor Audiology 02/21/22 Parth Ellis MD [address] [place] 502[address] Assigned Heart and Vascular Provider 07/19/22 07/25/22 Roderick Morelos MD [address] [place] [address] Assigned Heart and Vascular Provider 07/26/22 08/08/22 Henny Rosales, SUPERINTENDENT [employer]MIN[employer] CIRCULATION SUPERVISOR [address] [place] [phone] Assigned Heart and Vascular Provider 08/09/[address] [place] [address] [id number] Registered Dietitian Dietitian, Registered 09/02/22 Christiane Rodríguez MD [address] [place] [address] 396 [place] [address] Otolaryngology 11/12/22 Luis A Escobedo MD [address] [place] [address] [phone] Assigned Surgical Provider 11/01/22 11/28/22 Chely Fernandez PA-C [address] [place] [address] [phone] Assigned Surgical Provider 11/29/22 02/06/23 Jing Cadena, SUPERINTENDENT MARINE OIL TERMINAL SAMPLE MAKER HAND [address] [place] [address] 450 [place], [place] 097035 Clinical Nurse Specialist Anesthesiology 01/15/23 Radha Lopez [facility] [address] [place] [address] [phone] Pharmacist Pharmacist 01/16/23 Luis A Escobedo MD [address] [place] [address] 195 [place], [place] 376655 Assigned Surgical Provider 02/07/23 04/15/23 Geri Loza PA-C [address] [place] [address] Assigned Surgical Provider 04/16/23 Raina Patterson APRN CNP [address] [facility] [address] [place] [address] Nurse Practitioner Cardiovascular Disease 05/11/23 documented as of this encounter
--- OUTSIDE RECORDS SUMMARY | 2023-06-30 16:17 | XMS_ITS | Encounter Summary ---
Author Name Unknown Organization [facility] Address [address] [place] [address] Care Team Providers Care Edge Setter Name Role Phone Kaykay Duarte APRN, LEAH Primary Care Provid er Reason for Visit * Reason Comments Orders Needed Encounter Details Date Type Department Care Team (Late st Contact Info) Description 04/21/2023 Telephone [facility] [address] [place] [address] Jesus Topete MD [address] [facility] [address] [place] [id number] Orders Needed Social History Tobacco Use Types [...] Dunn RN - 04/24/2023 8:49 AM CST Staff Climate Scientist sees the pt has made a f/u maryam;t with Dr. Topete on 04/25/2023. Leigh Paul RN - 04/22/2023 11:[address] Topete, the pt may be scheduled with him for this hip injection on either weekend of or May 02. Will wait for the pt to [facility]. Jesus León MD - 04/22/2023 11:03 AM [...] an ultrasound guided right hip steroid injection. Staff Climate Scientist l/m on an unidentified vmasking the pt to [facility]. Given the mainline phone number and our hours of operation. It has only been 4 days since receiving a right hip bursa steroid injection. 04/22/2023 Staff Climate Scientist left a second message asking the pt [...] right hip injection. Patient waseager to proceed. OMER SERVICE RECEPTIONIST * Radha Noe - 04/21/2023 9:53 AM [...] can we send you a message in [place]? Yes [Data Miner/Waste Disposal Attendant: Relay to patient; We make every effort to get back to you sameday, however it may take 1-2 business days depending on the nature of the communication.] [Data Miner/Waste Disposal Attendant: Please inform the patient that a referral/order does not guarantee insurance coverage. Patients should call the member services number on the back of their insurance ID card to understand what coverage for the services they are requesting.] OMER SERVICE RECEPTIONIST documented in this encounter Plan of Treatment Not on file documented as of this encounter Visit Diagnoses Not on filedocumented in this encounter Care Teams Edge Setter Relationship Specialty Start Date End Date Kaykay Duarte, GINA, SUPERVISOR [employer] [address] [place] [address] PCP - General Nurse Practitioner 10/25/21 documented as of this encounter
--- OUTSIDE RECORDS SUMMARY | 2023-06-30 16:17 | XMS_ITS | Clinical Summary ---
Author Name Unknown Organization [facility] Address [address] [place] [address] Care Team Providers Care [employer] Worker Name Role Phone Kaykay Duarte APRN, LEAH Primary Care Provid er Source Comments You are receiving this document as you are listed as the primary care provider,follow-up provider, or the patient has been referred to you for consultation.This is in compliance with the Medicare and[facility] EHR Incentive Program,which states Providers who transition their patient to another setting of careor provider of care or refers their patient to another provider of care shouldprovide summary care record for each transition of care or referral. [facility] Allergies No known active allergies Medications Medication Sig Dispensed Refills Start Date End Date Status albuterol 2.5 mg/3 mL, 0.083%, (PROVENTIL) nebulizer solutionIndication s:Mild intermittent asthma without complication (HRC) Inhale 1 Vial every 4 hours as needed for Wheezing, Shortness of Breath or Other (cough). Inhale 1 vial (3 ml) in nebulizer every 6 hours as needed 180 mL 1 09/17/2020 Active levonorgestrel (MIRENA) 20 MCG/24HR IUD 1 Each by Intrauterine route once. Active VENTOLIN HFA 108 (90 Base) MCG/ACT inhalerIndications :Mild intermittent asthma without complication (HRC) Inhale 2 Puffs every 6 hours as needed for Wheezing. 3 Each 3 02/14/2022 Active mometasone-formote rol (DULERA) 200-5 mcg/actuation inhaler Inhale 1 Puff two times a day. Rinse mouth/gargle after use. 1 Each 3 02/20/2022 Active cyanocobalamin ([id number]) 1000 MCG/ML injection Inject 1,000 mcg subcutaneously every 30 days. 08/15/2022 Active levothyroxine (SYNTHROID) 200 MCG tablet 1 tab PO daily with 25 mcg tab for total 225 mcg daily 90 Tablet 3 10/24/2022 Active omeprazole (PRILOSEC) 40 MG capsule Take 1 Capsule (40 mg) by mouth two times a day. 10/23/2022 Active rOPINIRole (REQUIP) 2 MG tabletIndications: Uncontrolled restless legs syndrome Take 2 Tablets (4 mg) by mouth daily at bedtime. 180 Tablet 3 11/27/2022 Active gabapentin (NEURONTIN) 100 MG capsuleIndications :Uncontrolled restless legs syndrome Take 1-3 Capsules (100-300 mg) by mouth daily as needed (Restless legs). Take earlier in the day if needed for restless legs. Continue prescription for 600 mg at bedtime. 90 Capsule 11 11/27/2022 4 Active gabapentin (NEURONTIN) 600 MG tabletIndications: Restless legs syndrome Take 1 Tablet (600 mg) by mouth daily at bedtime. 90 Tablet 5 11/27/2022 Active atorvastatin (LIPITOR) 40 MG tablet Take 1 Tablet (40 mg) by mouth daily. 90 Tablet 3 11/27/2022 Active levothyroxine (SYNTHROID) 25 MCG tablet Take 1 Tablet (25 mcg) by mouth daily. Take with 200mcg tab for a total of 225mcg daily. Take at least one hour before or two hours after meal. 90 Tablet 1 02/10/2023 Active acetaminophen (TYLENOL) 325 MG tablet Take 2 Tablets (650 mg) by mouth. 03/19/2023 Active hyoscyamine (LEVSIN) 0.125 MG tablet Take 1 Tablet (0.125 mg) by mouth every 4 hours as needed. 02/17/2023 Active SENEXON-S 8.6-50 MG per tablet Take by mouth. 03/19/2023 Active ursodiol (ACTIGALL) 300 MG capsule Take 1 Capsule (300 mg) by mouth. 04/23/2023 Active Active Problems Problem Noted Date Diagnosed Date Trochanteric bursitis of left hip 11/27/2022 Primary osteoarthritis of right hip 11/27/2022 Insulin long-term use 11/05/2021 QT prolongation 02/08/2021 Nocturia 01/04/2021 Overview: Added automatically from request for surgery [id number] S/P laparoscopic sleeve gastrectomy 08/09/2020 Overview: Laparoscopic [...] RDI 36 Lowest O2 Sat: 87% [place] Cervical high risk HPV (human papillomavirus) te st positive 08/05/2017 Overview: [facility] Review: History: 07/2017: NILM HPV+ (18) 08/2017: colp neg 11/2020: NILM HPV neg 04/2023: NILM HPV neg Plan, per ASCCP guidelines: pap & HPV co-test in 3 years (2026) Morbid obesity with body mas s index (BMI) of 50.0 to 59.9 in adult 04/15/2017 Hypothyroidism 08/01/2016 Chronic low back pain 08/01/2016 OAB (overactive bladder) 08/01/2016 Mild intermittent asthma without complication Restless legs syndrome 05/29/2014 Gastroesophageal reflux disease with esophagitis 08/14/2009 Mixed hyperlipidemia 08/14/2009 Type 2 diabetes mellitus with other specified co mplication Chronic obstructive pulmonary disease, unspecifi ed Resolved Problems Problem Noted Date Diagnosed Date Resolved Date Tachycardia 03/23/2020 06/11/2020 Pneumonia due to COVID-19 virus 03/20/2020 05/10/2020 2019 novel coronavirus disease (COVID-19) 03/19/2020 06/11/2020 Hypoxia 03/19/2020 06/11/2020 IFG (impaired fasting glucose) 08/02/2016 03/12/2020 Panic attack 10/16/2014 08/01/2016 Encounters Date Type Department Care Team Description 06/03/2023 Telephone [facility] [address] [place] [address] Mikayla Sweeney MD Follow-up 06/02/2023 Orders Only [facility] Provider, MD Kip 05/20/2023 2:30 PM SUPERVISOR SMALL APPLIANCE ASSEMBLY [facility] [address] [place] [address] Jose Oconnor MD Hoarseness (Primary Dx); Change in voice 05/15/2023 Telephone [facility] [address] [place] [address] Kaykay Duarte APRN, WIRE CHIEF ERRONEOUS ENTRY 05/15/2023 Notes/Orders Centralized Outreach [address] [place] [address] [phone] Mikayla Sweeney MD Type 2 diabetes mellitus without complication, without long-term current use of insulin (HRC) 05/09/2023 Partner ED [facility] Provider, MD Kip [facility] 05/09/2023 05/09/2023 Nurse Triage Careline [address] [place] [address] Unknown, Physician PALPITATIONS--ED; TACHYCARDIA 04/29/2023 2:30 PM SUPERVISOR SMALL APPLIANCE ASSEMBLY Ancillary Procedure [facility] [place] [address] [address] [address] [place] [phone] Elizabeth Herndon, GINA, CNM Hypothyroidism, unspecified type (HRC) 04/29/2023 10:00 AM SUPERVISOR SMALL APPLIANCE ASSEMBLY Lab Visit [facility] [address], [address] [place] [address] Screen for STD (sexually transmitted disease) 04/29/2023 9:00 AM SUPERVISOR SMALL APPLIANCE ASSEMBLY Office Visit [facility] [address], [address] [place] [phone] Elizabeth Herndon APRN, CNM Annual physical exam (Primary Dx); Low libido; Screening for cervical cancer; Hypothyroidism, unspecified type (HRC); Screen for STD (sexually transmitted disease); Screening for thyroid disorder 04/28/2023 2:40 PM SUPERVISOR SMALL APPLIANCE ASSEMBLY Office Visit [facility] [address] [phone] Indigo Zuniga A, OD Examination of eyes and vision (Primary Dx); Presbyopia; Regular astigmatism of left eye 04/28/2023 2:10 PM SUPERVISOR SMALL APPLIANCE ASSEMBLY Lab Visit [address] [address] Hypothyroidism, unspecified type (HRC) 04/28/2023 E-Visit [facility] [address] Endocr[address]ology [address] [place] [address] Mikayla Sweeney MD Chief Comp: Questions 04/21/2023 Telephone [facility] [address] [place] [phone] Jesus Topete MD Orders Needed 04/17/2023 1:10 PM SUPERVISOR SMALL APPLIANCE ASSEMBLY Office Visit [facility] [address] [place] [phone] Jesus Topete MD Bilateral hip joint arthritis (Primary Dx); Trochanteric bursitis of left hip; Trochanteric bursitis, right hip 04/02/2023 8:40 AM SUPERVISOR SMALL APPLIANCE ASSEMBLY Ancillary Procedure [address] [address] from Last 3 Months Immunizations Name Administration Dates Next Due Influenza IIV4 (Quadrivalent ) 0.5mL (69793) 02/08/2021,03/31/2019,04/14/2017 PCV20 (Ancccty62) 05/20/2023 PPSV23 (Pneumovax) 04/14/2017 Pfizer Monovalent 12+ Purple [...] Sign Reading Time Taken Comments Blood Pressure 121/77 05/20/2023 2:19 PM SUPERVISOR SMALL APPLIANCE ASSEMBLY Pulse 86 05/20/2023 2:19 PM SUPERVISOR SMALL APPLIANCE ASSEMBLY Temperature 39.3 ??C (102.7 ??F) 10/31/2022 2:29 PM C DT Respiratory Rate 16 11/20/2022 8:15 AM CDT Oxygen Saturation 97% 11/20/2022 8:15 AM CDT Inhaled Oxygen Concentration - - Weight 120.5 kg (265 lb 9.6 oz) 05/20/2023 2:19 PM SUPERVISOR SMALL APPLIANCE ASSEMBLY Height 167.6 cm (5' 6) 09/11/2022 4:11 PM CDT Body Mass Index 42.87 09/11/2022 4:11 PM CDT Plan of Treatment Health Maintenance Due Date Last Done Comments MTM Targeted 1970 HepB (1) 10/02/1987 Diabetes: Foot Exam 02/08/2022 02/08/2021 (Completed ) COVID-19 Vaccine ( season) 2022 11/28/2020, 06/19/2020 Influenza (#1) 2022 02/08/2021, 11/2019, 04/14/2017 Diabetes: HGBA1C 03/25/2023 12/23/2022, 05/2022, 10/23/2022, Additional history exists Diabetes: Urine Microalbumin 08/21/2023 08/20/2022, 02/08/2021, 01/04/2020 Diabetes: Creatinine 10/24/2023 10/23/2022, 02/08/2021, 08/04/2020, Additional history exists Mammogram 04/02/2024 04/02/2023, 01/21, 01/30/2021, Additional history exists Diabetes: Eye Exam 04/28/2024 04/28/2023, 0 04/28/2023, 04/16/2021, Additional history exists Adult Preventive Visit 04/29/2024 04/29/2023, 2020 Cervical Cancer Screening 04/29/20262023, 12/17/2020, 08/27/2017 (Completed), Additional history exists Diabetes: Lipid Panel 10/24/2027 10/23/2022 , 01/04/2020, 10/06/2019, Additional history exists DTaP/Tdap/Td (2 - Tdap) 06/27/2031 06/26/2021 Colonoscopy 11/20/2032 11/20/2022 HIV Screening (Preventive Services) Completed 06/27/2020 Hep C Screening (Preventive Services) Completed 09/13/2021 Zoster/Shingles Completed 09/13/2021, 12/17/2020 Cholesterol Discontinued 10/23/2022, 12/21, 10/06/2019, Additional history exists Pneumococcal Completed 05/20/2023, 04/14/2017 HepA Aged Out No longer eligi ble [...] this topic Medical Devices Implanted Type Area Test Center Manager Device Identifier Shelf Expiration Date Model / Serial / Lot Kit Leidy Burris Sys - [id number] Implanted:Qty: 1 on 02/19/2021 by Zoila Shaikh MBBS at [facility] DEVICE N/A: PELVIS [place] [employer] 12/05/2021 [id number] / [id number] / [id number] Description:Polypropylene me sh- per [employer] Ent Gyrus Virk Torp-05/20/2005 Implanted: 006 (Quantity not on file) ENT EAR [id number] / / [id number] Description:Devices that are made from non-metallic materials (i.e. Implants and Ventilation Tubes made from DAVIS, Plasti-pore, Silicone, Fluoroplastic) are inherently non-conducting and non-magnetic and pose no known hazards in all MR environments and therefore are considered MR Safe. - Per [employer] Procedures Procedure Name Priority Date/Time Associated Diagnosis Comments HOLTER MONITOR 06/02/2023 US THYROID Routine 04/29/2023 2:31 PM SUPERVISOR SMALL APPLIANCE ASSEMBLY Hypothyroidism, unspecified type (HRC) CHLAMYDIA & GC, URINE (14 YEARS AND OLDER) Routine 04/29/2023 10:11 AM SUPERVISOR SMALL APPLIANCE ASSEMBLY Screen for STD (sexually transmitted disease) HPV WITH 16 18 GENOTYPING, CERVICAL/ENDOCERVICA L Routine 04/29/2023 9:58 AM SUPERVISOR SMALL APPLIANCE ASSEMBLY Screening for cervical cancer PAP TEST Routine 04/29/2023 9:58 AM SUPERVISOR SMALL APPLIANCE ASSEMBLY Screening for cervical cancer TSH, SENSITIVE Routine 04/28/2023 2:05 PM SUPERVISOR SMALL APPLIANCE ASSEMBLY Hypothyroidism, unspecified type (HRC) MM MAMMOGRAM SCREENING BILAT W 3D SCOT W CAD Routine 04/02/2023 8:58 AM SUPERVISOR SMALL APPLIANCE ASSEMBLY HGB A1C Routine 12/23/2022 11:40 AM CDT [...] CDT Need for hepatitis C screening test HIV 1/2 AG/AB 4TH GEN Routine 06/27/2020 8:04 AM CDT Screening for HIV (human immunodeficiency virus) from Last 3 Months or Most Recently Relevant to Health Maintenance Results * HOLTER MONITOR (06/02/2023) Interface Provider DUMMY/OTHER/AR * US Thyroid (04/29/2023 2:31 PM SUPERVISOR SMALL APPLIANCE ASSEMBLY) Anatomical Region Laterality Modality Neck, Head Ultrasound 04/29/2023 2:11 PM SUPERVISOR SMALL APPLIANCE ASSEMBLY Impressions 04/29/2023 4:30 PM SUPERVISOR SMALL APPLIANCE ASSEMBLY COMPARISON: None. TECHNIQUE: Ultrasound examination of the [...] (14 Years and Older) (04/29/2023 10:11 AM SUPERVISOR SMALL APPLIANCE ASSEMBLY) Chlamydia Trachomatis STD Not Detected Not Detected 04/30/2023 12:18 AM SUPERVISOR SMALL APPLIANCE ASSEMBLY [facility] N. gonorrhoeae STD Not Detected Not Detected 04/30/2023 12:18 AM SUPERVISOR SMALL APPLIANCE ASSEMBLY [facility] Urine STD (Urine for STD) Non-blood Collection / Unknown 04/29/2023 10:11 AM SUPERVISOR SMALL APPLIANCE ASSEMBLY 04/29/2023 10:12 AM SUPERVISOR SMALL APPLIANCE ASSEMBLY [facility] - 04/30/2023 12:18 AM SUPERVISOR SMALL APPLIANCE ASSEMBLY Test performed by Private Investigator Surveillance Mediated Amplification (TMA). Elizabeth Herndon APRN, CLAUM LAB_1 [facility] [address] [place] [address], [facility] * PAP Test (04/29/2023 9:58 AM SUPERVISOR SMALL APPLIANCE ASSEMBLY) Case Report Pap ? Case: [id number] ? Authorizing Provider: ??Elizabeth Herndon APRN, ?Collected: ? 04/29/2023 0958 ? CNM ? Ordering Location: ? [facility] ? Received: ?04/29/2023 1008 ? Services-MINE EXPERT ? First Screen: ?Nault, Diana E, CT (ASCP) ? Specimen: ?Pap Test, Routine, Cervix/Endocervix ? 05/21/2023 1:19 PM SUPERVISOR SMALL APPLIANCE ASSEMBLY [facility] Pap Specimen Adequacy Satisfactory for evaluation, endocervical/kerr sformation zone component present. 05/21/2023 1:19 PM SUPERVISOR SMALL APPLIANCE ASSEMBLY [facility] Pap Interpretation (NILM) Negative for intraepithelial lesion or malignancy. 05/21/2023 1:19 PM SUPERVISOR SMALL APPLIANCE ASSEMBLY [facility] Pap Disclaimer The Pap test is a screening test to aid in the detection of cervical and vaginal cancers and their precursor lesions. It is not a diagnostic procedure and should not be used as the sole means of detecting malignancy. Both false-positive and false-negative results may occur. 05/21/2023 1:19 PM SUPERVISOR SMALL APPLIANCE ASSEMBLY [facility] Gross Description The specimen is received in SurePath fixative and properly labeled. 1 Pap-stained SurePath slide is prepared. 05/21/2023 1:19 PM SUPERVISOR SMALL APPLIANCE ASSEMBLY [facility] Embedded Images 1:19 PM SUPERVISOR SMALL APPLIANCE ASSEMBLY [facility] Other Specimen Type ENTIRE ENDOCERVIX / Unknown 04/29/2023 9:58 AM SUPERVISOR SMALL APPLIANCE ASSEMBLY 04/29/2023 10:08 AM SUPERVISOR SMALL APPLIANCE ASSEMBLY Comment:LMP: No LMP recorded . (Menstrual status: IUD). Elizabeth Herndon APRN, CNM LAB PATHOLOGY [facility] [address] * HPV with 16 18 Genotyping (04/29/2023 9:58 AM SUPERVISOR SMALL APPLIANCE ASSEMBLY) HPV High Risk Type 16 PCR Not Detected Not detected 05/21/2023 1:19 PM SUPERVISOR SMALL APPLIANCE ASSEMBLY [facility] HPV High Risk Type 18 PCR Not Detected Not Detected 05/21/2023 1:19 PM SUPERVISOR SMALL APPLIANCE ASSEMBLY [facility] HPV High Risk Other Than 16/18 Not Detected Not detected 05/21/2023 1:19 PM SUPERVISOR SMALL APPLIANCE ASSEMBLY [facility] Cervical Broom ENTIRE ENDOCERVIX / Unknown 04/29/2023 9:58 AM SUPERVISOR SMALL APPLIANCE ASSEMBLY 04/29/2023 4:40 PM SUPERVISOR SMALL APPLIANCE ASSEMBLY Narrative [facility] - 05/21/2023 1:19 PM SUPERVISOR SMALL APPLIANCE ASSEMBLY The Janett HPV test is a qualitative in vitro test for the detection of Human Papillomavirus in SurePath patient specimens. The test utilizes amplification of target DNA by Polymerase Chain Reaction (PCR) and nucleic acid hybridization for the detection of 14 high-risk (HR) HPV types. The assay tests for high risk types (16, 18, 31, 33, 35, 39, 45, 51, 52, 56, 58, 59, 66, and 68). Elizabeth Herndon APRN, CNM LAB_1 Performing Organization Address [facility]/ZIP Co de Phone Number [address] * (ABNORMAL) TSH (04/28/2023 2:05 PM SUPERVISOR SMALL APPLIANCE ASSEMBLY) TSH, Sensitive 0.02(L) 0.30 - 4.50 uIU/mL 04/28/2023 8:01 PM SUPERVISOR SMALL APPLIANCE ASSEMBLY [facility] Blood Venipuncture / Unknown 04/28/2023 2:05 PM SUPERVISOR SMALL APPLIANCE ASSEMBLY 04/28/2023 2:05 PM SUPERVISOR SMALL APPLIANCE ASSEMBLY Mikayla Sweeney MD LAB_1 [facility] [address] * MM Mammogram Screening Bilat W 3D Scot W CAD (04/02/2023 8:58 AM SUPERVISOR SMALL APPLIANCE ASSEMBLY) Anatomical Region Laterality Modality Breast Bilateral Mammography Impressions 04/02/2023 10:15 AM SUPERVISOR SMALL APPLIANCE ASSEMBLY : ACR BI-RADS Category 1: Negative RECOMMENDATION: Follow Up Imaging in 12 months - Bilateral The provided family history indicates that the patient might be at a high lifetime risk of breast cancer. Consider a formal risk assessment if not previously performed. The results and recommendations of this examination will be communicated to the patient. Narrative 04/02/2023 10:15 AM SUPERVISOR SMALL APPLIANCE ASSEMBLY MM MAMMOGRAM SCREENING BILAT W 3D SCOT [...] evidence of malignancy. ?? Kaykay Duarte APRN, WIRE CHIEF RAD CARLOS * (ABNORMAL) HgbA1c - Collect in Lab (12/23/2022 11:40 AM CDT) Hemoglobin A1C (Rapid) 6.4(H) <=5.6 % 12/23/2022 1:46 PM T [facility] Estimated Average Glucose (Calc) 137 < 117 mg/dL 12/23/2022 1:46 PM [facility] Comment:Estimated average gl ucose (eAG) converts A1c into glucose units (mg/dL) and estimates average glucose over the past approximately 3 months. The eAG reference interval (<117 mg/dL) corresponds to an A1c of <5.7%. Blood Venipuncture / Unknown 12/23/2022 11:40 AM CDT 12/23/2022 11:43 AM CDT [facility]AT[facility] - 12/23/2022 1:46 PM CDT For [...] for further direction. Mikayla Sweeney MD LAB_1 [facility] [address] [place] [address], [facility] [phone] * Endoscopy, colon, diagnostic (11/20/2022 7:03 AM [...] saturations were ? monitored continuously. The ? [id number] was introduced through ? the anus and [...] the initial medication ? administration until the catalytic case operator assists with ? initial maneuvers (biopsy / [...] Procedure Code(s): ? --- Professional --- ? 42924, Colonoscopy, flexible; ? diagnostic, including collection of ? specimen(s) by brushing or washing, ? when performed (separate procedure) ? 09211, Moderate sedation; each ? additional 15 minutes [...] (additional time may ? [place] [address], as ? appropriate) Diagnosis Code(s): ? --- Professional --- ? Z12.11, Encounter for screening for ? malignant neoplasm of colon ? K64.9, Unspecified hemorrhoids CPT copyright 2020 [employer]. All rights reserved. The codes documented in this report are preliminary and upon gang punch operator review may be revised to meet current [...] and oxygen saturations were monitored continuously. The [id number] was introduced through the anus and advanced [...] from the initial medication administration until the catalytic case operator assists with initial maneuvers (biopsy / polypectomy / etc.), or if no maneuvers are performed, until the endoscopist leaves the room. Impression: - The examined portion of the ileum was normal. - The entire examined colon is normal. - Hemorrhoids. - No specimens collected. Recommendation: - Repeat colonoscopy in 10 years for screening purposes. Procedure Code(s): --- Professional --- 46884, Colonoscopy, flexible; diagnostic, including collection of specimen(s) by brushing or washing, when performed (separate procedure) 39915, Moderate sedation; each additional 15 minutes intraservice time G0500, Moderate sedation services provided by the same physician or other qualified health rn urgent care performing a gastrointestinal endoscopic service that sedation supports, requiring the presence of an independent trained observer to assist in the monitoring of the patient's level of consciousness and physiological status; initial 15 minutes of intra-service time; patient age 5 years or older (additional time may be reported with 41238, as appropriate) Diagnosis Code(s): --- Professional --- Z12.11, Encounter for screening for malignant neoplasm of colon K64.9, Unspecified hemorrhoids CPT copyright 2020 [employer]. All rights reserved. The codes documented in this report are preliminary and upon gang punch operator review may be revised to meet current compliance requirements. Nahomy Chavez Noa, 11/20/2022 8:02:54 AM This document has been electronically signed. Number of Addenda: 0 Note Initiated On: 11/20/2022 7:03 AM Endoscopy Report Elizabeth Herndon PRODUCT LINE MANAGER, CNM PN GI PROCEDUR E ORDERABLES Performing Organization Address City/[facility]/ZIP Co de Phone Number PN PROVATION * (ABNORMAL) Lipid Panel and Direct LDL(If Needed) (10/23/2022 11:20 AM CDT) Cholesterol 322(H) 0 - 199 mg/dL 10/23/2022 1:00 PM T [facility] Triglyceride 205(H) <=149 mg/dL 10/23/2022 1:00 PM T [facility] HDL Cholesterol 46 >=40 mg/dL 3 1:00 PM [facility] LDL, Calculated 235(H) <130 mg/dL 3 1:00 PM [facility] Non HDL Chol, Calculated 276(H) <=159 mg/dL 10/23/2022 1:00 PM [facility] Cholesterol/HDL Ratio 7.0 10/23/2022 1:00 PM [facility] Hours Fasting 0 10/23/2022 1:00 PM [facility] Blood Venipuncture / Unknown 10/23/2022 11:20 AM CDT 10/23/2022 11:39 AM CDT Mikayla Sweeney MD LAB_1 Performing Organization Address City/[facility]/ZIP Co de Phone Number [facility] [address] [place] [address], [facility] [phone] * (ABNORMAL) Comp Metabolic Panel (10/23/2022 11:20 AM CDT) Sodium 139 136 - 145 mmol/L 10/23/2022 1:00 PM T [facility] Potassium 4.3 3.5 - 5.1 mmol/L 10/23/2022 1:00 PM [facility] Chloride 105 98 - 109 mmol/L 10/23/2022 1:00 PM [facility] CO2 24 20 - 29 mmol/L 10/23/2022 1:00 PM [facility] Anion Gap 10 7 - 16 mmol/L 10/23/2022 1:00 PM [facility] Calcium 9.4 8.4 - 10.4 mg/dL 10/23/2022 1:00 PM [facility] BUN 17 7 - 26 mg/dL 10/23/2022 1:00 PM [facility] Creatinine 0.90 0.55 - 1.02 mg/dL 10/23/2022 1:00 PM [facility] Alkaline Phosphatase 73 40 - 150 U/L 10/23/2022 1:00 PM [facility] AST (SGOT) 16 10 - 40 U/L 10/23/2022 1:00 PM [facility] ALT (SGPT) 21 <=55 U/L 10/23/2022 1:00 PM [facility] Bilirubin, Total 0.4 0.2 - 1.2 mg/dL 10/23/2022 1:00 PM [facility] Protein, Total 7.0 6.4 - 8.3 g/dL 10/23/2022 1:00 PM [facility] Albumin 3.8 3.5 - 5.0 g/dL 10/23/2022 1:00 PM [facility] Glucose 123(H) 70 - 100 mg/dL 10/23/2022 1:00 PM [facility] Comment:The given reference range is for the fasting state. Non-fasting reference range for glucose is 70 - 180 mg/dL. Hours Fasting 0 10/23/2022 1:00 PM [facility] GFR, Estimated >60 >60 mL/min/1.7 3m2 10/23/2022 1:00 PM [facility] Blood Venipuncture / Unknown 10/23/2022 11:20 AM CDT 10/23/2022 11:39 AM T Geri Loza PA-C LAB_1 [facility] [address] [place] [address], [facility] [phone] * Albumin/Creatinine Ratio,Random Urine (08/20/2022 8:36 AM CDT) [facility] Albumin/Creati nine Ratio, Urine, Random 10 <30 mg/g 08/20/2022 10:58 AM CDT [facility] Albumin, Urine, Random 18.1 mg/L 08/20/2022 10:58 AM CDT [facility] Creatinine, Urine, Random 182 >20 mg/dL mg/dL 08/20/2022 10:58 AM CDT [facility] Urine Non-blood Collection / Unknown 08/20/2022 8:36 AM CDT 08/20/2022 9:30 AM CDT Mikayla Sweeney MD LAB_1 Performing Organization Address City/[facility]/ZIP Co de Phone Number [facility] [address] [place] [address] [phone] * Hepatitis C Antibody, with Reflex (09/13/2021 11:05 AM CDT) [facility] Hepatitis C Antibody Negative (Non Reactive) Negative (Non Reactive) 09/13/2021 4:31 PM CDT [facility] Comment:Antibodies to HCV no t detected. Does not exclude the possiblity of exposure to HCV. Blood Venipuncture / Unknown 09/13/2021 11:05 AM CDT 09/13/2021 11:16 AM CDT Kaykay Duarte APRN, LEAH LAB_1 [facility] [address] * HIV 1/2 Ag/Ab 4th Generation (06/27/2020 8:04 AM CDT) Pathologist [facility] HIV 1/2 Antigen/Antib sherry (4th generation) Negative (Non Reactive) Negative (Non Reactive) 06/27/2020 12:45 PM CDT [facility] Comment:HIV-1 p24 Antigen an d HIV-1/HIV-2 Antibody not detected Blood Venipuncture / Unknown 06/27/2020 8:04 AM CDT 06/27/2020 8:09 AM CDT Kaykay Duarte APRN, CNP LAB_1 [facility] [address] [place] [address], [facility] from Last 3 Months or Most Recently Relevant to Health Maintenance Advance Directives * Full Code (Latest Code Status on File) Date Activated Date Inactivated Comments 08/09/2020 4:04 PM 08/10/2020 1:55 PM Care 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
--- OUTSIDE RECORDS SUMMARY | 2023-06-30 16:17 | XMS_ITS | Encounter Summary ---
Author Name Unknown Organization [facility] Address [address] [place] [address] Care Team Providers Care Arts Manager Name Role Phone Kaykay Duarte APRN, LEAH Primary Care Provid er Reason for Visit * Reason Comments Follow-up Encounter Details Date Type Department Care Team (Late st Contact Info) Description 04/17/2023 1:10 PM AIRWAY TRAFFIC CONTROLLER Office Visit [facility] [address] [place] [address] Jesus Topete MD [address] [facility] [place] [address] Bilateral hip joint arthritis (Primary Dx); Trochanteric [...] Patient Instructions * Patient Instructions* Katty Cobos, [facility] - 04/17/2023 1:10 PM AIRWAY TRAFFIC CONTROLLER Thank you for choosing [facility] for your [...] for next 24 hours; ok to shower. AY TRAFFIC CONTROLLER documented in this encounter Progress Notes * [...] Reading Date Result Priority Mars Lane MD [phone] 09/11/2022 Narrative & Impression IMPRESSION COMPARISON: 03/04/2022 FINDINGS: Moderate osteoarthritis in the right hip is similar to prior. No acute bone or joint abnormalities. Specimen Collected: 09/11/22 16:33 Last Resulted: 09/11/22 17:06 XR Pelvis W Lt Lateral Hip Details Reading Physician Reading Date Result Priority Santiago Glass MD [phone] 03/04/2022 Routine Narrative & Impression IMPRESSION COMPARISON: [...] note. As a result, wrong word or 'klvdi-m-bseq' substitutions may have occurred due to the inherent limitations of voice recognition software. There may be errors in the script that have gone undetected. Please consider this when interpreting information found in this chart. AY TRAFFIC CONTROLLER documented in this encounter Plan of Treatment Not on file documented as of this encounter Visit Diagnoses Diagnosis Bilateral hip joint arthritis- Primary Trochanteric bursitis of left hip Enthesopathy of hip region Trochanteric bursitis, right hip documented in this encounter Care Teams Arts Manager Relationship Specialty Start Date End Date Kaykay Duarte, SCHEDULE ANNOUNCER, GUARD CAPTAIN [address] [place] [address] PCP - General Nurse Practitioner 10/25/21 documented as of this encounter
--- OUTSIDE RECORDS SUMMARY | 2023-06-30 16:17 | XMS_ITS | Encounter Summary ---
Author Name Unknown Organization [facility] Address [address] [address] Care Team Providers Care Blanking Machine Operator Name Role Phone Kaykay Duarte APRN, LEAH Primary Care Provid er Reason for Visit * Reason Comments Questions Encounter Details Date Type Department Care Team (Late st Contact Info) Description 04/28/2023 E-Visit [facility] [address] Endocrinology [address] [facility] [place], [place] [id number] Mikayla Sweeney MD [address] [place] [address] Chief Comp: Questions Social History [...] going to tell me to see my Electronic Service Technician. Please advise, thank you. EIN * Mikayla Sweeney MD - 04/28/2023 12:49 PM CST She has standing TSH ordered so she can get the blood work done if she would like. Recommend see PCP for exam of the neck AL SERVICE AGENCY DIRECTOR * Amie Mancia RN - 04/28/2023 10:00 [...] Pt had gastric bypass surgery on 03/18/23. AL SERVICE AGENCY DIRECTOR documented in this encounter Plan of Treatment Not on file documented as of this encounter Visit Diagnoses Not on filedocumented in this encounter Care Teams Blanking Machine Operator Relationship Specialty Start Date End Date Kaykay Duarte, ICT TRAINER, MAINTENANCE LEADER [address] [place] [address] PCP - General Nurse Practitioner 10/25/21 documented as of this encounter
--- OUTSIDE RECORDS SUMMARY | 2023-06-30 16:17 | XMS_ITS | Encounter Summary ---
Author Name Unknown Organization [facility] Address [address], [place] [address] Care Team Providers Care Ingredient Handler Name Role Phone Kaykay Duarte APRN, CNP Primary Care Provid er Reason for Visit * Reason Comments ERRONEOUS ENTRY Encounter Details Date Type Department Care Team (Late st Contact Info) Description 05/15/[address] [facility] [place] [address] [place] [address] Kaykay Duarte APRN, CNP [address] [place] [address] ERRONEOUS ENTRY Social History Tobacco Use Types Packs/Day Years [...] on filedocumented in this encounter Care Teams Ingredient Handler Relationship Specialty Start Date End Date Kaykay Duarte, SAMPLE FINISHER, NEWSPAPER STUFFER [address] [place] [address] PCP - General Nurse Practitioner 10/25/21 documented as of this encounter
--- OUTSIDE RECORDS SUMMARY | 2023-06-30 16:17 | XMS_ITS | Encounter Summary ---
Author Name Unknown Organization [facility] Address [address] [place] [address] Care Team Providers Care Chore Tender Name Role Phone Kaykay Duarte APRN, LEAH Primary Care Provid er Reason for Visit * Reason Comments PALPITATIONS--ED TACHYCARDIA Encounter Details Date Type Department Care Team (Late st Contact Info) Description 05/09/2023 Nurse Triage Careline [address] [place], [place] [address] Unknown, Physician [address] [place] [address] PALPITATIONS--ED; TACHYCARDIA Social History Tobacco [...] weakness Protocols used: Heart Rate and Heartbeat [id number] Recommendation: Go to ED now. Have someone else drive. Patient verbalizes understanding and agrees with this plan. Advised patient/caller to call back CareLine if there are further questions or concerns. The CareLine is available 13/10. Nury Ledezma RN Careline 5:10 PM 05/09/2023 ER CONTROL OPERATOR * Lakshmi Wade - 05/09/2023 4:54 PM CST Verified patient using 3 identifiers: Yes Caller reports the following red flag symptoms: PVC/palpitations. 133-145 Plan: Transferred directly to a CareLine RN. ER CONTROL OPERATOR documented in this encounter Plan of Treatment Not on file documented as of this encounter Visit Diagnoses Not on filedocumented in this encounter Care Teams Chore Tender Relationship Specialty Start Date End Date Kaykay Duarte, BALANCE ASSEMBLER, OB GYN [address] [place] [address] PCP - General Nurse Practitioner 10/25/21 documented as of this encounter
--- OUTSIDE RECORDS SUMMARY | 2023-06-30 16:17 | XMS_ITS | Encounter Summary ---
Author Name Unknown Organization [facility] Address [address] [address] Care Team Providers Care Speeder Tender Name Role Phone Kaykay Duarte APRN, LEAH Primary Care Provid er Reason for Visit * Procedure/Equipment (Routine) - Incomplete Specialty Diagnoses / Procedures Referred By Osmar t Referred To Contact Diagnoses Hypothyroidism, unspecified type (HRC) Procedures US Thyroid Elizabeth Herndon APRN, CNM [address] [place] [address] Referral ID Status Reason Start Date Expiration Date V isits Requested Visits Authorized [id number] Incomplete 04/29/2023 07/28/2024 1 1 Encounter Details Date Type Department Care Team (Latest Contact Info) Description 04/29/2023 2:30 PM RETAIL WAREHOUSE SUPERVISOR Ancillary Procedure [place] [address] Ul[address] [address] [place] [address] Elizabeth Herndon APRN, CNM [address] [place] [address] Hypothyroidism, unspecified type (HRC) Social [...] Comments US THYROID Routine 04/29/2023 2:31 PM RETAIL WAREHOUSE SUPERVISOR Hypothyroidism, unspecified type (HRC) documented in this encounter Results * US Thyroid (04/29/2023 2:31 PM RETAIL WAREHOUSE SUPERVISOR) Anatomical Region Laterality Modality Neck, Head Ultrasound 04/29/2023 2:11 PM RETAIL WAREHOUSE SUPERVISOR Impressions 04/29/2023 4:30 PM RETAIL WAREHOUSE SUPERVISOR COMPARISON: None. TECHNIQUE: Ultrasound examination of the [...] (HRC) documented in this encounter Care Teams Speeder Tender Relationship Specialty Start Date End Date Kaykay Duarte APRN, COMMUNICATION CENTER COORDINATOR [address] [place] [address] PCP - General Nurse Practitioner 10/25/21 documented as of this encounter
--- OUTSIDE RECORDS SUMMARY | 2023-06-30 16:17 | XMS_ITS | Encounter Summary ---
Author Name Unknown Organization [facility] Address [address], [place] [address] Care Team Providers Care Admissions Manager Name Role Phone Kaykay Duarte APRN, LEAH Primary Care Provid er Encounter Details Date Type Department Care Team (Late st Contact Info) Description 04/29/2023 10:00 AM DELI/BAKERY ASSOCIATE Lab Visit [facility], [address] [address] Screen for STD (sexually transmitted [...] labs. Message sent to patient via MyChart. /BAKERY ASSOCIATE documented in this encounter Plan of Treatment Not on file documented as of this encounter Procedures Procedure Name Priority Date/Time Associated Diagnosis Comments CHLAMYDIA & GC, URINE (14 YEARS AND OLDER) Routine 04/29/2023 10:11 AM DELI/BAKERY ASSOCIATE Screen for STD (sexually transmitted disease) documented in this encounter Results * Chlamydia & GC, Urine (14 Years and Older) (04/29/2023 10:11 AM DELI/BAKERY ASSOCIATE) Chlamydia Trachomatis STD Not Detected Not Detected 04/30/2023 12:18 AM DELI/BAKERY ASSOCIATE [facility] N. gonorrhoeae STD Not Detected Not Detected 04/30/2023 12:18 AM DELI/BAKERY ASSOCIATE [facility] Urine STD (Urine for STD) Non-blood Collection / Unknown 04/29/2023 10:11 AM DELI/BAKERY ASSOCIATE 04/29/2023 10:12 AM DELI/BAKERY ASSOCIATE Narrative [facility] - 04/30/2023 12:18 AM DELI/BAKERY ASSOCIATE Test performed by Communications Executive Mediated Amplification (TMA). Elizabeth Herndon APRN, CNM LAB_1 Performing Organization Address City/State/[facility] Co de Phone Number [facility] [address] documented in this encounter Visit Diagnoses Diagnosis Screen for STD (sexually transmitted disease) Screening examination for venereal disease documented in this encounter Care Teams Admissions Manager Relationship Specialty Start Date End Date Kaykay Duarte APRN, HERBICIDE SERVICE SALES REPRESENTATIVE [address] [place] [address] PCP - General Nurse Practitioner 10/25/21 documented as of this encounter
--- OUTSIDE RECORDS SUMMARY | 2023-06-30 16:17 | XMS_ITS | Encounter Summary ---
Author Name Unknown Organization [facility] Address [address], [place] [address] Care Team Providers Care Professional Shopper Name Role Phone Kaykay Duarte APRN, LEAH Primary Care Provid er Reason for Referral * Procedure/Equipment (Routine) - Incomplete Specialty Diagnoses / Procedures Referred By Contac t Referred To Contact Diagnoses Hypothyroidism, unspecified type (HRC) Procedures US Thyroid Elizabeth Herndon APRN, CNM [address] [place] [address] Referral ID Status Reason Start Date Expiration Date V isits Requested Visits Authorized [id number] Incomplete 04/29/2023 07/28/2024 1 1 INE TOOL DRESSER * Consult/Transfer Care (Routine) - New Request Specialty Diagnoses / Procedures Referred By Contac t Referred To Contact Diagnoses Low libido Elizabeth [place]don APRN[place] CNM [address] [address] [place] [address] Referral ID Status Reason Start Date Expiration Date V isits Requested Visits Authorized [id number] New Request 04/29/2023 07/28/2024 1 1 Scheduling Instructions Your clinician has recommended an appointment with [facility]. You may call [phone] to schedule your appointment. If you do [...] time whether she wants to pursue consult. INE TOOL DRESSER Reason for Visit * Reason Comments Annual Exam Encounter Details Date Type Department Care Team (Late st Contact Info) Description 04/29/2023 9:00 AM MACHINE TOOL DRESSER Office Visit [facility]-CURATOR NATURAL HISTORY MUSEUM [address] [facility], [facility] [address] [place] [address] Elizabeth Herndon APRN, CNM [address] [facility] [address] [place] [address] Annual physical exam (Primary Dx); [...] 121.1 kg (267 lb) 04/29/2023 9:13 AM MACHINE TOOL DRESSER Height - - Body Mass Index 43.09 09/11/2022 4:11 PM CDT documented in this encounter Patient Instructions * Attachments The following attachments cannot be sent through Care Everywhere. * Menopause: General Info (Indonesian) documented in this encounter Progress Notes * [...] hot flashes at night. Menstrual concerns: none. Jukebox Routeman History: Last pap: 07/2017 Last PAP 11/2020 [...] any concerns. [place] for annual exam, [place] [id number] for additional time for evaluation, management, record review, and coordination of care regarding low libido, thyroid concern INE TOOL DRESSER * Puja Connolly, RN - 04/29/2023 9:00 AM CST Dear Billie, I am writing to let you know that your Pap and HPV result is negative. This means that your test result was normal. No cancer or pre-cancerous cells were seen. Based on current cervical cancer screening recommendations, your next Pap and HPV should be in 3 years. Continue to schedule your annual preventive exams for your overall health. If you have questions about cervical cancer screening or your test results, call [phone]. Sincerely, Cervical Cancer Screening & Management Team documented in this encounter Plan of Treatment Scheduled Referrals Name Type Priority Associated Diagnoses Orde r Schedule Sexual Medicine and Health Consult Referral Routine Low libido Ordered: 04/29/2023 documented as of this encounter Procedures Procedure Name Priority Date/Time Associated Diagnosis Comments PAP TEST Routine 04/29/2023 9:58 AM MACHINE TOOL DRESSER Screening for cervical cancer HPV WITH 16 18 GENOTYPING, CERVICAL/ENDOCERVIC AL Routine 04/29/2023 9:58 AM MACHINE TOOL DRESSER Screening for cervical cancer documented in this encounter Results * US Thyroid (04/29/2023 2:31 PM MACHINE TOOL DRESSER) Anatomical Region Laterality Modality Neck, Head Ultrasound 04/29/2023 2:11 PM MACHINE TOOL DRESSER Impressions 04/29/2023 4:30 PM MACHINE TOOL DRESSER COMPARISON: None. TECHNIQUE: Ultrasound examination of the [...] with sequela of priorthyroiditis. Elizabeth Herndon APRN, DESMOND RAD US * Chlamydia & GC, Urine (14 Years and Older) (04/29/2023 10:11 AM MACHINE TOOL DRESSER) Chlamydia Trachomatis STD Not Detected Not Detected 04/30/2023 12:18 AM MACHINE TOOL DRESSER [facility] N. gonorrhoeae STD Not Detected Not Detected 04/30/2023 12:18 AM MACHINE TOOL DRESSER [facility] Urine STD (Urine for STD) Non-blood Collection / Unknown 04/29/2023 10:11 AM MACHINE TOOL DRESSER 04/29/2023 10:12 AM MACHINE TOOL DRESSER [facility] - 04/30/2023 12:18 AM MACHINE TOOL DRESSER Test performed by Group Sales Manager Mediated Amplification (TMA). Elizabeth Herndon APRN, CNM LAB_1 Performing Organization Address [facility]/ZIP Co de Phone Number [facility] [address] * HPV with 16 18 Genotyping (04/29/2023 9:58 AM MACHINE TOOL DRESSER) HPV High Risk Type 16 PCR Not Detected Not detected 05/21/2023 1:[address] [facility] HPV High Risk Type 18 PCR Not Detected Not Detected 05/21/2023 1:[address] [facility] HPV High Risk Other Than 16/18 Not Detected Not detected 05/21/2023 1:19 PM [facility] Cervical Broom ENTIRE ENDOCERVIX / Unknown 04/29/2023 9:58 AM MACHINE TOOL DRESSER 04/29/2023 4:40 PM MACHINE TOOL DRESSER [facility] - 05/21/2023 1:19 PM MACHINE TOOL DRESSER The Janett HPV test is a qualitative [...] Herndon APRN, CNM LAB_1 Performing Organization Address [facility]/ZIP Co de Phone Number [address] * PAP Test (04/29/2023 9:58 AM MACHINE TOOL DRESSER) Case Report Pap ? Case: [id number] ? Authorizing Provider: ??Elizabeth Herndon, REFERENCE DATA EXPERT, ?Collected: ? 04/29/2023 0958 ? CNM ? Ordering Location: ? [facility] ? Received: ?04/29/2023 1008 ? Services-CURATOR NATURAL HISTORY MUSEUM ? First Screen: ?Nault, Diana E, CT (ASCP) ? Specimen: ?Pap Test, Routine, Cervix/Endocervix ? 05/21/2023 1:19 PM MACHINE TOOL DRESSER [facility] Pap Specimen Adequacy Satisfactory for evaluation, endocervical/kerr sformation zone component present. 05/21/2023 1:19 PM MACHINE TOOL DRESSER [facility] Pap Interpretation (NILM) Negative for intraepithelial lesion or malignancy. 05/21/2023 1:19 PM MACHINE TOOL DRESSER [facility] Pap Disclaimer The Pap test is a screening test to aid in the detection of cervical and vaginal cancers and their precursor lesions. It is not a diagnostic procedure and should not be used as the sole means of detecting malignancy. Both false-positive and false-negative results may occur. 05/21/2023 1:19 PM MACHINE TOOL DRESSER [facility] Gross Description The specimen is received in SurePath fixative and properly labeled. 1 Pap-stained SurePath slide is prepared. 05/21/2023 1:19 PM MACHINE TOOL DRESSER [facility] Embedded Images 1:19 PM MACHINE TOOL DRESSER [facility] Other Specimen Type ENTIRE ENDOCERVIX / Unknown 04/29/2023 9:58 AM MACHINE TOOL DRESSER 04/29/2023 10:08 AM MACHINE TOOL DRESSER Comment:LMP: No LMP recorded . (Menstrual status: IUD). Elizabeth Herndon APRN, CNM LAB PATHOLOGY Performing Organization Address City/State/[facility] Co de Phone Number [facility] [address] [place] [address], [facility] documented in this encounter Visit Diagnoses Diagnosis Annual physical exam- Primary Routine general medical examination at a health care facility Low libido Screening for cervical cancer Screening for malignant neoplasm of the cervix Hypothyroidism, unspecified type (HRC) Screen for STD (sexually transmitted disease) Screening examination for venereal disease Screening for thyroid disorder Hypothyroidism, unspecified type (HRC) documented in this encounter Care Teams Professional Shopper Relationship Specialty Start Date End Date Kaykay Duarte APRN, [place] LO DRIVER [address] [place] [address] PCP - General Nurse Practitioner 10/25/21 documented as of this encounter
--- OUTSIDE RECORDS SUMMARY | 2023-06-30 16:17 | XMS_ITS | Encounter Summary ---
Author Name Unknown Organization [facility] Address [address], [place] [address] Care Team Providers Care Accounting Generalist Name Role Phone Kaykay Duarte APRN, LEAH Primary Care Provid er Encounter Details Date Type Department Care Team (Late st Contact Info) Description 04/28/2023 2:10 PM OPERATIONS ASST Lab Visit [facility] [address] [place] [address] Hypothyroidism, unspecified type (HRC) Social [...] Comments TSH, SENSITIVE Routine 04/28/2023 2:05 PM OPERATIONS ASST Hypothyroidism, unspecified type (HRC) documented in this encounter Results * (ABNORMAL) TSH (04/28/2023 2:05 PM OPERATIONS ASST) TSH, Sensitive 0.02(L) 0.30 - 4.50 uIU/mL 04/28/2023 8:01 PM OPERATIONS ASST [facility] Blood Venipuncture / Unknown 04/28/2023 2:05 PM OPERATIONS ASST 04/28/2023 2:05 PM OPERATIONS ASST Mikayla Sweeney MD LAB_1 [facility] [address] documented in this encounter Visit Diagnoses Diagnosis Hypothyroidism, unspecified type (HRC) documented in this encounter Care Teams Accounting Generalist Relationship Specialty Start Date End Date Kaykay Duarte, BRICK BAKER, FISH STRINGER ASSEMBLER [address] [place] [address] PCP - General Nurse Practitioner 10/25/21 documented as of this encounter
--- OUTSIDE RECORDS SUMMARY | 2023-06-30 16:17 | XMS_ITS | Encounter Summary ---
Author Name Unknown Organization [facility] Address [address], [place] [address] Care Team Providers Care Wind Farm Electrical Systems Designer Name Role Phone Kaykay Duarte APRN, LEAH Primary Care Provid er Reason for Visit * Reason Comments Follow-up Encounter Details Date Type Department Care Team (Late st Contact Info) Description 06/03/2023 Telephone [facility] [address] Endocrinology [employer] [place] [address] Mikayla Sweeney MD [address] [place] [address] Follow-up Social History Tobacco Use Types Packs/Day [...] as of this encounter Nursing Notes * Alexandrea Vaca, RN - 06/05/2023 9:27 AM CDT Spoke with patient and relayed information below. Pt verbalized understanding. No further questions. * Federica Marinelli RN - 06/04/2023 1:14 PM CDT Left voicemail for Pt to call back for message below. * Mikayla Sweeney MD - 06/04/2023 12:24 PM CDT Take extra half tab of levothyroxine once a week. She should discuss Mounjaro with the weight management clinic she is working with at [place]. * Federica Marinelli RN - 06/04/2023 11:09 AM CDT Jessica RN from [facility] called and said Dr Parth Patterson who ordered the labs wanted to discuss withDr Sweeney. He asked for an email to discuss [email or web address] * Osiris Quispe RN - 06/03/2023 4:25 PM CDT Pt calling in, she had labs done through a company called [employer]. She has results, and will be sending through [employer]- she calls back and states she is unable to get them sent through. TSH and A1C results- she would like to know if levothyroxine needs to be adjusted. She also wants to know if she can go back on Mounjaro. She states she is losing her insurance at the end of the month. Drawn on 05/31: TSH: 8.9 A1C:6.6 documented in this encounter Plan of Treatment Not on file documented as of this encounter Visit Diagnoses Not on filedocumented in this encounter Care Teams Wind Farm Electrical Systems Designer Relationship Specialty Start Date End Date Kaykay Duarte APRN, DIRECTOR OF RESPIRATORY THERAPY [address] [place] [address] PCP - General Nurse Practitioner 10/25/21 documented as of this encounter
--- OUTSIDE RECORDS SUMMARY | 2023-06-30 16:17 | XMS_ITS | Encounter Summary ---
Author Name Unknown Organization [facility] Address [address], [place] [address] Care Team Providers Care Sales Representative [facility] Name Role Phone Kaykay Duarte APRN, LEAH Primary Care Provid er Encounter Details Date Type Department Care Team (Late st Contact Info) Description 05/15/2023 Notes/Orders Centralized Outreach [address] [place] [id number] [address] Mikayla Sweeney MD [address] [place] [address] Type 2 diabetes mellitus without [...] Type Priority Associated Diagnoses Orde r Schedule Hgb A1C Lab Routine Type 2 diabetes mellitus without complication, without long-term current use of insulin (HRC) Expected: 05/15/2023, Expires: 08/13/2023 Albumin/Creatinine Ratio,Random Urine Lab Routine Type 2 diabetes mellitus without complication, without long-term current use of insulin (HRC) Expected: 05/15/2023, Expires: 11/13/2023 documented as of this encounter Visit Diagnoses Diagnosis Type 2 diabetes mellitus without complication, without long-term current use of insulin (HRC) documented in this encounter Care Teams Sales Representative [facility]om[facility] Relationship Specialty Start Date End Date Kaykay Duarte, BOAT LABORER, LOTUS NOTES DEVELOPER [address] [place] [address] PCP - General Nurse Practitioner 10/25/21 documented as of this encounter
--- OUTSIDE RECORDS SUMMARY | 2023-06-30 16:17 | XMS_ITS | Encounter Summary ---
Author Name Unknown Organization [facility] Address [address], [place] [address] Care Team Providers Care Silver Solution Mixer Name Role Phone Kaykay Duarte APRN, LEAH Primary Care Provid er Encounter Details Date Type Department Care Team (Latest Contact Info) Description 06/02/2023 Orders Only HIM DEPARTMENT Provider, [place] [address] Social History Tobacco Use Types Packs/Day Years [...] Date/Time Associated Diagnosis Comments HOLTER MONITOR 06/02/2023 documented in this encounter Results * HOLTER MONITOR (06/02/2023) Interface Provider DUMMY/OTHER/AR documented in this encounter Visit Diagnoses Not on filedocumented in this encounter Care Teams Silver Solution Mixer Relationship Specialty Start Date End Date Kaykay Duarte, DRYWALL CARRIER, EVENTS TRAFFIC CONTROLLER [address] [place] [address] PCP - General Nurse Practitioner 10/25/21 documented as of this encounter
--- OUTSIDE RECORDS SUMMARY | 2023-06-30 16:17 | XMS_ITS | Encounter Summary ---
Author Name Unknown Organization [facility] Address [address] [place] [address] Care Team Providers Care Digital X Ray Service Engineer Name Role Phone Kaykay Duarte APRN, CNP Primary Care Provid er Reason for Referral * Procedure/Equipment (Routine) - Incomplete Specialty Diagnoses / Procedures Referred By Osmar gallego Referred To Contact Procedures MM Mammogram Screening Bilat W 3D Scot W Kaykay Severino APRN, CNP [address] [place] [address] Referral ID Status Reason Start Date Expiration Date V isits Requested Visits Authorized [id number] Incomplete 04/02/2023 07/01/2024 1 1 TAINER SEWER AND WATERWORKS Reason for Visit * Procedure/Equipment (Routine) - Incomplete Specialty Diagnoses / Procedures Referred By Osmar gallego Referred To Contact Procedures MM Mammogram Screening Bilat W 3D Scot W CAD Kaykay Duarte APRN, CNP [address] [place] [address] Referral ID Status Reason Start Date Expiration Date V isits Requested Visits Authorized [id number] Incomplete 04/02/2023 07/01/2024 1 1 Encounter Details Date Type Department Care Team ([facility] st Contact Info) Description 04/02/2023 8:40 AM MAINTAINER SEWER AND WATERWORKS Ancillary Procedure [address] [place] [address] Social History Tobacco Use Types Packs/Day Years [...] SCOT W CAD Routine 04/02/2023 8:58 AM MAINTAINER SEWER AND WATERWORKS documented in this encounter Results * MM Mammogram Screening Bilat W 3D Scot W CAD (04/02/2023 8:58 AM MAINTAINER SEWER AND WATERWORKS) Anatomical Region Laterality Modality Breast Bilateral Mammography Impressions 04/02/2023 10:15 AM MAINTAINER SEWER AND WATERWORKS : ACR BI-RADS Category 1: Negative RECOMMENDATION: Follow Up Imaging in 12 months - Bilateral The provided family history indicates that the patient might be at a high lifetime risk of breast cancer. Consider a formal risk assessment if not previously performed. The results and recommendations of this examination will be communicated to the patient. Narrative 04/02/2023 10:15 AM MAINTAINER SEWER AND WATERWORKS MM MAMMOGRAM SCREENING BILAT W 3D SCOT [...] malignancy. ?? Kaykay Duarte APRN, CNP RAD CARLOS documented in this encounter Visit Diagnoses Not on filedocumented in this encounter Care Teams Digital X Ray Service Engineer Relationship Specialty Start Date End Date Kaykay Duarte APRN, CNP [address] [place] [address] PCP - General Nurse Practitioner 10/25/21 documented as of this encounter
--- OUTSIDE RECORDS SUMMARY | 2023-06-30 16:17 | XMS_ITS | Encounter Summary ---
Author Name Unknown Organization [facility] Address [address] [place] [address] Care Team Providers Care Lozenge Maker Helper Name Role Phone Kaykay Duarte APRN, LEAH Primary Care Provid er Reason for Referral * Consult/Transfer Care (Routine) - New Request Specialty Diagnoses / Procedures Referred By Osmar gallego Referred To Contact Diagnoses Hoarseness Change in voice Jose Oconnor MD [address] [place] [address] Referral ID Status Reason Start Date Expiration Date V isits Requested Visits Authorized [id number] New Request 05/20/2023 08/18/2024 1 1 Scheduling Instructions Your clinician has recommended an appointment with [facility] (ENT) - Head & Neck Surgery. You may call [phone] for help scheduling your appointment. We suggest you call your health insurance company about your coverage and benefits for this appointment. Question Answer Appointment Urgency? Within 1 Week (Urgent) Reason for visit? hoarse voice, unable to sing x4 weeks. Change in voice not improving. Consider laryngoscopy TICAL RESEARCHER Reason for Visit * Reason Comments HOARSENESS X1 month. Unable to talk above a certain pitch. Encounter Details Date Type Department Care Team ([facility] st Contact Info) Description 05/20/2023 2:30 PM POLITICAL RESEARCHER [facility] [address] [place] [address] Jose Oconnor MD [address] [place], [place] [id number] Hoarseness (Primary Dx); Change in voice Social History Tobacco Use Types Packs/Day Years [...] Comments Blood Pressure 121/77 05/20/2023 2:19 PM POLITICAL RESEARCHER Pulse 86 05/20/2023 2:19 PM POLITICAL RESEARCHER Temperature - - Respiratory Rate - - Oxygen Saturation - - Inhaled Oxygen Concentration - - Weight 120.5 kg (265 lb 9.6 oz) 05/20/2023 2:19 PM POLITICAL RESEARCHER Height - - Body Mass Index 42.87 09/11/2022 4:11 PM CDT documented in this encounter Progress Notes * Jose Oconnor MD - 05/20/2023 2:30 PM CST CRISTHIAN Wise, is a 52 y.o., female presenting to the clinic for concerns of change in voice. She is unable to raise her voice to certain tones. She isn't able to have the range like she could This has beengoing on for 4-5 weeks. She did see customer support specialist for thyroid issues and had US. That was normal.She was instructed to go see her PCP. She is taking levothyroxine. Now her voice is lower, gets raspy at the end of the day. She literally can't sing. Cannot hit the higher notes. No throat pain. This started on its own, no illness or recent URI. No GERD. Current Outpatient Medications Medication Sig Note Dispense Refill acetaminophen (TYLENOL) 325 MG tablet Take 2 Tablets (650 mg) by mouth. 05/20/2023: PRN albuterol 2.5 mg/3 mL, 0.083%, (PROVENTIL) nebulizer solution Inhale 1 Vial every 4 hours as neededfor Wheezing, Shortness of Breath or Other (cough). Inhale 1 vial (3 ml) in nebulizer every 6 hoursas needed 180 mL 1 atorvastatin (LIPITOR) 40 MG tablet Take 1 Tablet (40 mg) by mouth daily. 90 Tablet 3 cyanocobalamin (XBSFRZTI94) 1000 MCG/ML injection Inject 1,000 mcg subcutaneously every 30 days. gabapentin (NEURONTIN) 100 MG capsule Take 1-3 Capsules (100-300 mg) by mouth daily as needed (Restless legs). Take earlier in the day if needed for restless legs. Continue prescription for 600 mg atbedtime. 90 Capsule 11 gabapentin (NEURONTIN) 600 MG tablet Take 1 Tablet (600 mg) by mouth daily at bedtime. 90 Tablet 5 hyoscyamine (LEVSIN) 0.125 MG tablet Take 1 Tablet (0.125 mg) by mouth every 4 hours as needed. levonorgestrel (MIRENA) 20 MCG/24HR IUD 1 Each by Intrauterine route once. levothyroxine (SYNTHROID) 200 MCG tablet 1 tab PO daily with 25 mcg tab for total 225 mcg daily 90 Tablet 3 levothyroxine (SYNTHROID) 25 MCG tablet Take 1 Tablet (25 mcg) by mouth daily. Take with 200mcg tabfor a total of 225mcg daily. Take at least one hour before or two hours after meal. 90 Tablet 1 mometasone-formoterol (DULERA) 200-5 mcg/actuation inhaler Inhale 1 Puff two times a day. Rinse mouth/gargle after use. 1 Each 3 omeprazole (PRILOSEC) 40 MG capsule Take 1 Capsule (40 mg) by mouth two times a day. rOPINIRole (REQUIP) 2 MG tablet Take 2 Tablets (4 mg) by mouth daily at bedtime. 180 Tablet 3 SENEXON-S 8.6-50 MG per tablet Take by mouth. ursodiol (ACTIGALL) 300 MG capsule Take 1 Capsule (300 mg) by mouth. VENTOLIN HFA 108 (90 Base) MCG/ACT inhaler Inhale 2 Puffs every 6 hours as needed for Wheezing. 3 Each 3 No current facility-administered medications for this visit. Reviewed patient Past medical history, medications, allergies and Social/Family history. Updated inEpic. OBJECTIVE BP 121/77 (BP Location: Right Arm, BP Cuff Size: Large) Pulse 86 Wt 265 lb 9.6 oz (120.5 kg) BMI 42.87 kg/m?? Physical Exam Constitutional: General: She is not in acute distress. Appearance: Normal appearance. HENT: Head: Normocephalic and atraumatic. Right Ear: Tympanic membrane and ear canal normal. Left Ear: Tympanic membrane and ear canal normal. Nose: Nose normal. No congestion or rhinorrhea. Mouth/Throat: Mouth: Mucous membranes are moist. Pharynx: Oropharynx is clear. No oropharyngeal exudate or posterior oropharyngeal erythema. Eyes: Conjunctiva/sclera: Conjunctivae normal. Cardiovascular: Rate and Rhythm: Normal rate and regular rhythm. Heart sounds: No murmur heard. Pulmonary: Effort: Pulmonary effort is normal. No respiratory distress. Breath sounds: Normal breath sounds. No wheezing. Skin: Findings: No rash. Neurological: General: No focal deficit present. Mental Status: She is alert and oriented to person, place, and time. Psychiatric: Mood and Affect: Mood normal. ASSESSMENT 1. Hoarseness 2. Change in voice PLAN Voice has not improved over the last 4 weeks, actually getting worse. Concern for vocal chord issues or possible growth on vocal chord. Plan will be refer to ENT for consideration of laryngoscopy. Noother signs of illness or post-nasal drip. No orders of the defined types were placed in this encounter. Disclaimer: This note consists of symbols derived from keyboarding, dictation and/or voice recognition software. As a result, there may be errors in the script that have gone undetected. Please consider this when interpreting information found in this chart. TICAL RESEARCHER documented in this encounter Plan of Treatment Scheduled Referrals Name Type Priority Associated Diagnoses Orde r Schedule Otolaryngology Consult Adult/Peds Referral Routine Hoarseness Change in voice Ordered: 05/20/2023 documented as of this encounter Visit Diagnoses Diagnosis Hoarseness- Primary Dysphonia Change in voice Other voice and resonance disorders documented in this encounter Care Teams Lozenge Maker Helper Relationship Specialty Start Date End Date Kaykay Duarte APRN, CUBE CUTTER [address] [place] [address] PCP - General Nurse Practitioner 10/25/21 documented as of this encounter
--- OUTSIDE RECORDS SUMMARY | 2023-06-30 16:17 | XMS_ITS | Encounter Summary ---
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 Patient declined dilation today. Discussed importance of routine dilated eye exams to monitor for potential health concerns of the eye. Advised to return for dilation portion if she can. This will be a continuation of today's exam and will be at no additional charge to the patient. RTC 1 year or sooner as needed. NURSE documented in this encounter Plan of Treatment Not on file documented as of this encounter Visit Diagnoses Diagnosis Examination of eyes and vision- Primary Presbyopia Regular astigmatism of left eye Regular astigmatism documented in this encounter Care Teams Payment Poster Relationship Specialty Start Date End Date Kayaky Duarte, STICKER OPERATOR, PARCEL POST OFFICER [address] [place] [address] PCP - General Nurse Practitioner 10/25/21 documented as of this encounter
--- OUTSIDE RECORDS SUMMARY | 2023-06-30 16:17 | XMS_ITS | Encounter Summary ---
Author Name Unknown Organization [facility] Address [address] [place] [address] Care Team Providers Care Inside Sales Engineer Name Role Phone Edda Agudelo PA-C Primary Care Provider + [phone] Magno Wood MD Unavailable [phone] [facility] [place] Primary Care Provider Unavailable Parth Ellis MD Unavailable [phone] Tati Ayala MD Unavailable [phone] Khris Butt MD Unavailable [phone] MorelosRoderick nunes MD Unavailable [phone] Roderick Morelos MD Unavailable [phone] Magno Wood MD Unavailable [phone] Sophie Ocasio Unavailable [phone] Parth Ellis MD Unavailable [phone] MorelosRoderick nunes MD Unavailable [phone] Henny Rosales APRN RUGBY LEAGUE FOOTBALLER Unavailable [phone] [facility] Elvia Nugent [place] Primary Care Pr ovider Sharee Negron RD Unavailable Kaykay Duarte PETROLEUM REFINING EQUIPMENT OPERATOR Primary Care Provider [phone] Christiane Rodríguez MD Unavailable [phone] Luis A Escobedo MD Unavailable [phone] Chely Fernandez PA-C Unavailable [phone] Jing Cadena APRN PLASTERER MAINTENANCE Unavailable [phone] Radha Lopez Marte [facility] Unavailable [phone] Luis A Escobedo MD Unavailable [phone] Geri Loza PA-C Unavailable [phone] Raina Patterson GINA RUGBY LEAGUE FOOTBALLER Unavailable [phone] Encounter Details Date Type Department Care Team (Late st Contact Info) Description 10/20/2001 Office Visit-[facility] [address] [place] [address] Unknown, DoctorMD Social History Tobacco [...] Out COVID-19 03/19/2020 03/19/2020 03/19/2020 6:22 PM ASSISTANT PROFESSOR OF BUSINESS COVID-19 03/19/2020 03/19/2020 04/09/2020 11:3 9 PM ASSISTANT PROFESSOR OF BUSINESS Rule Out COVID-19 06/19/2021 06/19/2021 06/19/2021 1:37 AM CDT Rule Out COVID-19 10/29/2021 10/29/2021 10/29/2021 1:07 AM CDT documented as of this encounter Care Teams Inside Sales Engineer Relationship Specialty Start Date End Date Edda Agudelo PA-C [facility] [address] [address] PCP - General 05/04/12 10/11/19 Sheila [place] [address] [address] PCP - General Family Practice 10/12/19 08/18/22 [facility] [address] [place], [place] [address] PCP - General 08/19/22 10/14/22 [place] [address] [place], [place] [address] PCP - General 10/15/22 Magno Wood MD [address] [address] Otolaryngology 05/29/15 08/02/17 Parth Ellis MD [address] [place] [address] Assigned Heart and Vascular Provider 01/13/20 12/13/21 Tati Ayala MD [address] [place], [place] [address] Assigned Endocrinology Provider 01/13/20 12/29/20 Khris Butt MD [address] [facility] [address] [place] [address] Assigned Heart and Vascular Provider 12/14/21 02/14/22 Roderick Morelos MD [address] [place] [address] Cardiovascular Disease 02/03/22 Roderick Morelos MD [address] [place] [address] Assigned Heart and Vascular Provider 02/15/22 07/18/22 Magno Wood MD [address] [place] [address] Otolaryngology 02/21/22 Sophie Ocasio AuD [address] [place] [address] [facility] 02/21/22 Parth Ellis MD [address] [place] [address] Assigned Heart and Vascular Provider 07/19/22 07/25/22 Roderick Morelos MD [address] [place] [address] Assigned Heart and Vascular Provider 07/26/22 08/08/22 Henny Rosales APRN RUGBY LEAGUE FOOTBALLER [address] [place] [address] Assigned Heart and Vascular Provider 08/09/[address] [place] [address] Registered Dietitian Dietitian, Registered 09/02/22 Christiane Rodríguez MD [address] [place] [address] [address] [place], [place] [address] Otolaryngology 11/12/22 Luis A Escobedo MD [address] [facility] [address] [place], [place] [address] Assigned Surgical Provider 11/01/22 11/28/22 Chely Fernandez PA-C [address] [place] [address] Assigned Surgical Provider 11/29/22 02/06/23 Jing Cadena, MOSS GATHERER PLASTERER MAINTENANCE [address] [facility] [address] [place], [place] [address] Clinical Nurse Specialist Anesthesiology 01/15/23 Radha oLpez, [facility] [address] [place] [address] Pharmacist Pharmacist 01/16/23 Luis A Escobedo MD [address] [place] [address] [address] [place] [address] Assigned Surgical Provider 02/07/23 04/15/23 Geri Loza PA-C [address] [place] [address] Assigned Surgical Provider 04/16/23 Raina Patterson APRN RUGBY LEAGUE FOOTBALLER [address] [place] [address] Nurse Practitioner Cardiovascular Disease 05/11/23 documented as of this encounter
--- OUTSIDE RECORDS SUMMARY | 2023-06-30 16:17 | XMS_ITS | Encounter Summary ---
Author Name Unknown Organization [facility] Address [address], [place] [address] Care Team Providers Care Machine Slat Basket Maker Name Role Phone Kaykay Duarte APRN, CNP Primary Care Provid er Encounter Details Date Type Department Care Team (Late st Contact Info) Description 05/09/2023 Partner ED HIM DEPARTMENT Provider, [place] [address] [facility] 05/09/2023 Social History Tobacco Use Types Packs/Day Years [...] on filedocumented in this encounter Care Teams Machine Slat Basket Maker Relationship Specialty Start Date End Date Kaykay Duarte APRN, CNP [address] [place] [address] PCP - General Nurse Practitioner 10/25/21 documented as of this encounter
--- OUTSIDE RECORDS SUMMARY | 2023-06-30 16:18 | XMS_ITS | Encounter Summary ---
Author Name Unknown Organization [facility] Address [address], [place] [address] Care Team Providers Care Labeling Associate Name Role Phone Kaykay Duarte APRN, CNP Primary Care Provid er Reason for Visit * Reason Comments Letter Encounter Details Date Type Department Care Team (Late st Contact Info) Description 01/26/2023 Telephone [facility] [address] [place] [address] Kaykay Duarte APRN, CNP [address] [place], [place] [address] Letter Social History Tobacco Use Types Packs/Day [...] question: would like letter faxed again to [phone]. States clinic has not received letter yet. Is it okay to leave a detailed message on your voicemail? No IR OPERATOR documented in this encounter Plan of Treatment Not on file documented as of this encounter Visit Diagnoses Not on filedocumented in this encounter Care Teams Labeling Associate Relationship Specialty Start Date End Date Kaykay Duarte, LOAN INTERVIEWER, [employer] [address] [place] [address] PCP - General Nurse Practitioner 10/25/21 documented as of this encounter
--- OUTSIDE RECORDS SUMMARY | 2023-06-30 16:18 | XMS_ITS | Encounter Summary ---
Author Name Unknown Organization [facility] Address [address], [place] [address] Care Team Providers Care Food Editor Name Role Phone Kaykay Duarte APRN, CNP Primary Care Provid er Reason for Visit * Reason Comments Vaginal Odor Encounter Details Date Type Department Care Team (Late st Contact Info) Description 04/14/2018 Nurse Triage [facility] [address] [place], [place] [id number] Kaykay Duarte APRN, LEAH [address] [place] [id number] Vaginal Odor Social History Tobacco Use Types [...] States she will go to Urgent Care ORATE PHYSICAL SECURITY SUPERVISOR * Kaykay Duarte APRN, CNP - 04/14/2018 3:22 PM CST Plz call pt. Ok to work her in on at 11:40 or 1pm. Electronically signed by Kaykay Duarte, ENVIRONMENTAL PROGRAM MANAGER, FISH EGG PACKER at 04/14/2018 3:22 PM CORPORATE PHYSICAL SECURITY SUPERVISOR * Geri Burnett, RN - 04/14/2018 3:09 PM CST Clinician Action: Appointment Work In Reason Vaginal discharge/odor Clinician Next Step: Route to [facility] to follow up and Patient IS expecting a call back from care team Specific Request(s): 1. Pt asking for a work in [facility] for vaginal discharge (white) and odor x [...] last menstrual period? no Protocols used: VAGINAL [id number] ORATE PHYSICAL SECURITY SUPERVISOR * Karen Saunders - 04/14/2018 3:01 PM CST Pt calling back in. Transferred to triage per request. ORATE PHYSICAL SECURITY SUPERVISOR * Jacquelyn Jaquez CNA - 04/14/2018 11:05 AM CST Symptoms Describe your symptoms (if pain, include location): Odor, discharge When did they start? 2 weeks Additional comments (related to the above concern): Pt has had past BV infection. Pt unavailable to speak 11:30-1:00pm today 04/14/18 If a prescription is needed, patient would like it filled at the pharmacy listed in [facility] [employer]. (Verify the pharmacy patient would like to use for this request is highlighted in blue in Pharmacy Selection under Meds & PowerDsine) Is it okay to leave a detailed message on your voicemail? Yes (Advise caller that the PN call back number will end with [phone] or unknown) For urgent symptoms: Please route and transfer to: Triage Pool (high priority) For routine symptoms: Please route to: Triage Pool (only transfer if caller insists) ORATE PHYSICAL SECURITY SUPERVISOR documented in this encounter Plan of Treatment Not on file documented as of this encounter Visit Diagnoses Not on filedocumented in this encounter Additional Health Concerns Infection Onset Date Last Indicated Resolved Time R/O COVID19 02/08/2021 02/08/2021 02/09/2021 10:0 6 AM CORPORATE PHYSICAL SECURITY SUPERVISOR R/O COVID19 02/17/2021 02/17/2021 02/17/2021 11:3 2 PM CORPORATE PHYSICAL SECURITY SUPERVISOR documented as of this encounter Care Teams Food Editor Relationship Specialty Start Date End Date Kaykay Duarte, ENVIRONMENTAL PROGRAM MANAGER, FISH EGG PACKER [address] [place] [address] PCP - General Nurse Practitioner 10/25/21 documented as of this encounter
--- OUTSIDE RECORDS SUMMARY | 2023-06-30 16:18 | XMS_ITS | Encounter Summary ---
Author Name Unknown Organization [facility] Address [address] [address] Care Team Providers Care Finishing Powder Press Operator Name Role Phone Kaykay Duarte APRN, CNP Primary Care Provid er Encounter Details Date Type Department Care Team (Late st Contact Info) Description 01/22/2023 Telephone [facility] [address] [place] [address] Kaykay Duarte APRN, CNP [address] [place] [address] Social History Tobacco Use Types [...] on filedocumented in this encounter Care Teams Finishing Powder Press Operator Relationship Specialty Start Date End Date Kaykay Duarte, GINA, SMALL ENGINE TRAINER [address] [place] [address] PCP - General Nurse Practitioner 10/25/21 documented as of this encounter
--- OUTSIDE RECORDS SUMMARY | 2023-06-30 16:56 | XMS_ITS | Clinical Summary ---
Author Name Unknown Organization [facility] Address [address] [place] [address] Care Team Providers Care Kosher Dietary Service Supervisor Name Role Phone Roderick Morelos MD Unavailable [phone] Magno Wood MD Unavailable [phone] Sophie Ocasio AuD Unavailable [phone] Henny Rosales APPRAISER ART TETRYL WRINGER OPERATOR Unavailable Sharee Negron RD Unavailable Kaykay Duarte NP Primary Care Provider Christiane Rodríguez MD Unavailable Jing Cadena APPRAISER ART FORMING YARDAGE CONTROL OPERATOR Unavailable Radha Lopez [facility] Unavailable [phone] Geri LozaC Unavailable Raina Patterson APRN TETRYL WRINGER OPERATOR Unavailable Allergies Active Allergy Reactions Criticality Noted [...] & Plan: S/p gastric sleeve 08/09/2020 at [facility]. No post op complications. Weight prior to [...] loss. Gastric sleeve was completed 08/09/[address] [facility] [address] Barillas. Starting weight 338lb, BMI 56.25. She felt that instantly did not see expected weight loss results. Per chart review had lost 8lbs by 3 months post op and has followed up with [facility] since. She has lost 38lbs since surgery, [...] Department Care Team Description 04/23/2023 1:30 PM BANQUET CHEF Virtual Visit [facility] [address] [address] Nutritional counseling (Primary Dx); S/P laparoscopic sleeve gastrectomy; Type 2 diabetes mellitus without complication, without long-term current use of insulin (H); Obesity 04/23/2023 12:00 PM BANQUET CHEF Virtual Visit [facility] [address] [address] Geri Loza PA-C S/P laparoscopic sleeve gastrectomy 04/23/2023 MyC Medical Advice [facility] [address] [phone] [facility] MyC Medical Advice [facility] [address] [phone] Tanya Larsen RN 04/06/2023 MyC Medical Advice [facility] [address] [phone] Tanya Larsen RN 04/02/2023 MyC Medical Advice [facility] [address] [phone] aTnya Larsen RN 03/31/2023 MyC Medical Advice [facility] [address] [phone] Tanya Larsen, SKIP from Last 3 Months [...] Comments Blood Pressure 124/78 03/24/2023 10:20 AM BANQUET CHEF Pulse 70 03/24/2023 10:20 AM BANQUET CHEF Temperature 36.8 ??C (98.2 ??F) 03/24/2023 10:[address] Respiratory Rate 16 03/24/2023 10:20 AM BANQUET CHEF Oxygen Saturation 99% 03/24/2023 10:20 AM BANQUET CHEF Inhaled Oxygen Concentration - - Weight 120.7 kg (266 lb) 04/23/2023 11:55 AM BANQUET CHEF Height 167.6 cm (5' 6) 04/23/2023 11:55 AM BANQUET CHEF Body Mass Index 42.93 04/23/2023 11:55 AM BANQUET CHEF Plan of Treatment Health Maintenance Due Date [...] Advance Directives For more information, please contact: [phone] Latest Code Status on File Code Status [...] 12:01 PM 05/01/2018 3:45 AM Care Teams Kosher Dietary Service Supervisor Relationship Specialty [place] [address] [place] [address] PCP - General 10/15/22 Roderick Morelos MD [address] [place], [place] [address] Cardiovascular Disease 02/03/22 Magno Wood MD [address] [place] [address] 396 [place] [address] Otolaryngology 02/21/22 Sophie Ocasio AuD [address] [place] [address] Nuclear Operations Specialist Audiology 02/21/22 Henny Rosales APRN TETRYL WRINGER OPERATOR [address] [place] [address] Assigned Heart and Vascular Provider 08/09/[address] [place] [address] Registered Dietitian Dietitian, Registered 09/02/22 Christiane Rodríguez MD [address] [place] [address] 396 [place] [address] Otolaryngology 11/12/22 Jing Cadena APRN FORMING YARDAGE CONTROL OPERATOR [address] [place] [address] 450 [place] [address] Clinical Nurse Specialist Anesthesiology 01/15/23 Radha Lopez, [facility] 9 [place] [address] Pharmacist Pharmacist 01/16/23 Geri Loza PA-C 9 [place] [address] Assigned Surgical Provider 04/16/23 Raina Patterson APRN TETRYL WRINGER OPERATOR [address] [place] [address]365 Nurse Practitioner Cardiovascular Disease 05/11/23
--- OUTSIDE RECORDS SUMMARY | 2023-06-30 16:56 | XMS_ITS | Encounter Summary ---
Author Name Unknown Organization [facility] Address [address] [place] [address] Care Team Providers Care Men'S Custom Hair Piece Consultant Name Role Phone Roderick Morelos MD Unavailable [phone] Magno Wood MD Unavailable [phone] Sophie Ocasio AuD Unavailable Henny Rosales SAW MAKER LINING SCRUBBER Unavailable [phone] Unavailable Kaykay Duarte NP Primary Care Provider Christiane Rodríguez MD Unavailable Jing Cadena SAW MAKER OBSTETRICS SPECIALIST Unavailable Radha Lopez [facility] Unavailable [phone] Geri Loza PA-C Unavailable Reason for Visit * Reason Comments RECHECK Encounter Details Date Type Department Care Team (Latest Contact Info) Description 04/23/2023 12:00 PM CIRCULATION TENDER Virtual Visit [facility] [address] [place] [address] Geri Loza PA-C [address] [place] [address] S/P laparoscopic sleeve gastrectomy Social History [...] 120.7 kg (266 lb) 04/23/2023 11:55 AM CIRCULATION TENDER Height 167.6 cm (5' 6) 04/23/2023 11:55 AM CIRCULATION TENDER Body Mass Index 42.93 04/23/2023 11:55 AM CIRCULATION TENDER documented in this encounter Patient Instructions * Patient Instructions* Geri Loza PA-C - 04/23/2023 12:00 PM CIRCULATION TENDER Plan: 1. RD visit today. - Start [...] 12. 3 months post op labs ordered ULATION TENDER documented in this encounter Progress Notes * Geri Loza PA-C - 04/23/2023 12:00 PM CST Virtual Visit Details Type of service: Video Visit Video Start Time: 12:04PM Video End Time: 12:30PM Originating Location (pt. Location): Home Distant Location (provider location): Off-site Platform used for Video Visit: [facility] Postoperative bariatric surgery visit. Patient underwent [...] post op labs ordered Geri Loza PA-C ULATION TENDER documented in this encounter Nursing Notes * Ángela Barton - 04/23/2023 12:00 PM CST Is the patient currently in the state of [place]? YES Visit mode:VIDEO If the visit is dropped, the patient can be reconnected by: VIDEO VISIT: Text to cell phone: Telephone Information: Will anyone else be joining the visit? NO (If patient encounters technical issues they should call [phone] :[phone]) How would you like to obtain your AVS? MyChart Are changes needed to the allergy or medication list? No Reason for visit: RECHECK Ángela Barton VVF ULATION TENDER documented in this encounter Plan of Treatment [...] documented as of this encounter Care Teams Men'S Custom Hair Piece Consultant Relationship Specialty [place] [address] [place] [address] PCP - General 10/15/22 Roderick Morelos MD [address] [place] [address] Cardiovascular Disease 02/03/22 Magno Wood MD [address] [place] [address] 011345 Otolaryngology 02/21/22 Sophie Ocasio AuD [address] [place] [address] 516235 Lap Regulator Audiology 02/21/22 Henny Rosales APRN LINING SCRUBBER [address] [place] [phone] Assigned Heart and Vascular Provider 08/09/[address] 9 [place] [address] Registered Dietitian Dietitian, Registered 09/02/22 Christiane Rodríguez MD 420 [facility] 396 [place], [place] 678[address] Otolaryngology 11/12/22 Jing Cadena, SAW MAKER OBSTETRICS SPECIALIST [address] [facility] 450 [place], [place] 74[address] Clinical Nurse Specialist Anesthesiology 01/15/23 Radha Lopez, [facility] [address] [place] [address] 985625 Pharmacist Pharmacist 01/16/23 Geri Loza PA-C [address] [place] [address] Assigned Surgical Provider 04/16/23 documented as of this encounter
--- OUTSIDE RECORDS SUMMARY | 2023-06-30 16:56 | XMS_ITS | Referral Summary ---
Author Name Unknown Organization [facility] Address [address] [place] [address] Care Team Providers Care Sales Facilitator Name Role Phone Roderick Morelos MD Unavailable [phone] Magno Wood MD Unavailable [phone] Sophie Ocasio AuD Unavailable [phone] Henny Rosales FIRST BREAKER FEEDER POLICE DEPARTMENT SECRETARY Unavailable Sharee Negron RD Unavailable Kaykay Duarte NP Primary Care Provider [phone] Christiane Rodríguez MD Unavailable [phone] Jing Cadena FIRST BREAKER FEEDER FRENCH PASTRY COOK Unavailable [phone] Radha Lopez [facility] Unavailable Geri Loza PA-C Unavailable [phone] Raina Patterson APRN POLICE DEPARTMENT SECRETARY Unavailable Encounters Date Type Department Care Team Description 04/23/2023 [facility] Medical Advice [facility] [address] [phone] Kang Griffiths 04/23/2023 12:00 PM KEEL PRESS OPERATOR Virtual Visit [facility] [address] [phone] Geri Loza PA-C S/P laparoscopic sleeve gastrectomy 04/23/2023 1:30 PM KEEL PRESS OPERATOR Virtual Visit [facility] [address] [phone] Nutritional counseling (Primary Dx); S/P laparoscopic sleeve gastrectomy; Type 2 diabetes mellitus without complication, without long-term current use of insulin (H); Obesity 04/14/2023 [facility] Medical Advice [facility] [address] [phone] Tanya Larsen, SKIP 04/06/2023 [facility] Medical Advice [facility] [address] [phone] Tanya Larsen, SKIP 04/02/2023 [facility] Medical Advice [facility] [address] [phone] Tanya Larsen RN 03/31/2023 [facility] Medical Advice [facility] [address] [phone] Tanya Larsen, SKIP from Last 3 Months [...] & Plan: S/p gastric sleeve 08/09/2020 at [facility]. No post op complications. Weight prior to [...] loss. Gastric sleeve was completed 08/09/[address] [facility] [address] Barillas. Starting weight 338lb, BMI 56.25. She felt that instantly did not see expected weight loss results. Per chart review had lost 8lbs by 3 months post op and has followed up with [facility] since. She has lost 38lbs since surgery, [...] Comments Blood Pressure 124/78 03/24/2023 10:20 AM KEEL PRESS OPERATOR Pulse 70 03/24/2023 10:20 AM KEEL PRESS OPERATOR Temperature 36.8 ??C (98.2 ??F) 03/24/2023 10:[address] Respiratory Rate 16 03/24/2023 10:20 AM KEEL PRESS OPERATOR Oxygen Saturation 99% 03/24/2023 10:20 AM KEEL PRESS OPERATOR Inhaled Oxygen Concentration - - Weight 120.7 kg (266 lb) 04/23/2023 11:55 AM KEEL PRESS OPERATOR Height 167.6 cm (5' 6) 04/23/2023 11:55 AM KEEL PRESS OPERATOR Body Mass Index 42.93 04/23/2023 11:55 AM KEEL PRESS OPERATOR Plan of Treatment Not on file Goals Goal Patient Goal Type Associated Problems Recent Progress Patient-Stated? Author BRIAN PATHWAY SURGERY IS SCHEDULED Care Plan BRIAN PATHWAY SURGERY IS SCHEDULED No Luis A Escobedo MD Additional Health Concerns Problem Noted Date Diagnosed Date BRIAN PATHWAY SURGERY IS SCHEDULED 10/15/2022 Advance Directives For more information, please contact: [phone] Latest Code Status on File Code Status [...] 12:01 PM 05/01/2018 3:45 AM Care Teams Sales Facilitator Relationship Specialty [place] [address] [place] [address] PCP - General 10/15/22 Roderick Morelos MD [address] [place] [address] Cardiovascular Disease 02/03/22 Magno Wood MD 420 [facility] [address] [place], [place] [address] Otolaryngology 02/21/22 Sophie Ocasio AuD [address] [place] [address] 385745 Advertising Statistical Clerk Audiology 02/21/22 Henny Rosales APRN POLICE DEPARTMENT SECRETARY [address] [place] [address] Assigned Heart and Vascular Provider 08/09/[address] [place] [address] [phone] Registered Dietitian Dietitian, Registered 09/02/22 Christiane Rodríguez MD [address] [place] [address] 013945 Otolaryngology 11/12/22 Jing Cadena APRN FRENCH PASTRY COOK [address] [place] [address] 450 [place], [place] 817845 Clinical Nurse Specialist Anesthesiology 01/15/23 Radha Lopez [facility] [address] [place] [address] 054925 Pharmacist Pharmacist 01/16/23 Geri Loza PA-C [address] [place] [address] 657395 Assigned Surgical Provider 04/16/23 Raina Patterson, FIRST BREAKER FEEDER POLICE DEPARTMENT SECRETARY [address] [facility] [address] [place] [address] Nurse Practitioner Cardiovascular Disease 05/11/23
--- OUTSIDE RECORDS SUMMARY | 2023-06-30 16:56 | XMS_ITS | Encounter Summary ---
Author Name Unknown Organization [facility] Address [address] [place] [address] Care Team Providers Care Splitter Operator Name Role Phone Roderick Morelos MD Unavailable [phone] Magno Wood MD Unavailable [phone] Sophie Ocasio AuD Unavailable Henny Rosales DEPARTMENT SECRETARY VALET MANAGER Unavailable [phone] Unavailable Kaykay Duarte UNDERGROUND MINE MACHINERY MECHANIC Primary Care Provider Christiane Rodríguez MD Unavailable [phone] Jing Cadena DEPARTMENT SECRETARY SHELLFISH MANAGER Unavailable Radha Lopez [facility] Unavailable [phone] Geri Loza PA-C Unavailable Reason for Visit * Reason Comments RECHECK Encounter Details Date Type Department Care Team (Latest Contact Info) Description 04/23/2023 1:30 PM FOOD SERVICE Virtual Visit [facility] [address] [place] [address] Sharee Negron, RD [address] [place] [address] Nutritional counseling (Primary Dx); S/P laparoscopic [...] Sharee Negron RD - 04/23/2023 1:30 PM FOOD SERVICE Goals: 1) Follow diet advancement schedule below. 2) Aim for 60+ gm protein/day. 3) Consume 48-64+ oz fluids daily- between meals 4) Eat slowly (>20 min/meal), chewing well to smooth consistency once on the bariatric soft diet. 5) Limit portions to ~1/4 to ~1/2 c per meal or less plus 1-2 protein shakes/day as needed 6) Take vitamins/minerals as recommended - Stratton 2 per day - Add B12 - Add Vitamin D - Add chewable calcium citrate as needed (want 3650-7616 mg/day between diet and supplements) Post-op Diet Advancement Schedule: Regular Diet (stage 5): START May 13 Post-op Diet Handouts: Diet Guidelines after Weight-loss Surgery [email or web address] Your Stage 4 Diet: Soft Foods [email or web address] Your Stage 5 Diet: Regular Foods [email or web address] Supplements after Sleeve Gastrectomy, Gastric Bypass or Single Anastomosis Duodenal Switch [email or web address] Keeping Track of Fluids [email or web address] Follow-Up: 06/23/22 at 1:00 pm Sharee Clement), SIVA, RD, LD Clinic #: [phone] SERVICE documented in this encounter Progress Notes * Sharee Negron RD - 04/23/2023 1:30 PM CST Video-Visit Details Type of service: Video Visit Video Start Time: 1:27 pm Video End Time: 1:40 pm Originating Location (pt. 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 Activity: limited by pain (needs hip replacement [...] needed 6) Take vitamins/minerals as recommended - Stratton 2 per day - Add B12 - Add Vitamin D - Add chewable calcium citrate as needed (want 6594-2945 mg/day between diet and supplements) Post-op Diet Advancement Schedule: Regular Diet (stage 5): START May 13 Post-op Diet Handouts: Diet Guidelines after Weight-loss Surgery [email or web address] Your Stage 4 Diet: Soft Foods [email or web address] Your Stage 5 Diet: Regular Foods [email or web address] Supplements after Sleeve Gastrectomy, Gastric Bypass or Single Anastomosis Duodenal Switch [email or web address] Keeping Track of Fluids [email or web address] Follow-Up: 06/23/22 at 1:00 pm Time spent with patient: 13 minutes. SIVA Peacock, RD, LD SERVICE documented in this encounter Nursing Notes * Ángela Barton - 04/23/2023 1:30 PM CST Is the patient currently in the state of [place]? YES Visit mode:VIDEO If the visit is dropped, the patient can be reconnected by: VIDEO VISIT: Text to cell phone: Telephone Information: Will anyone else be joining the visit? NO (If patient encounters technical issues they should call [phone] :[phone]) How would you like to obtain your AVS? MyChart Are changes needed to the allergy or medication list? N/A Reason for visit: RECHECK Ángela Barton VVF SERVICE documented in this encounter Plan of Treatment [...] documented as of this encounter Care Teams Splitter Operator Relationship Specialty [place] [address] [place] [address] PCP - General 10/15/22 Roderick Morelos MD [address] [place] [address] Cardiovascular Disease 02/03/22 Magno Wood MD [address] [place] [address] 070895 Otolaryngology 02/21/22 Sophie Ocasio AuD [address] [place] [address] 802575 Pressed Or Blown Glass Worker Audiology 02/21/22 Henny Rosales, DEPARTMENT SECRETARY VALET MANAGER [address] [place] [phone] Assigned Heart and Vascular Provider 08/09/[address] [place] [address] [phone] Registered Dietitian Dietitian, Registered 09/02/22 Christiane Rodríguez MD [address] [place] [address] [phone] Otolaryngology 11/12/22 Jing Cadena APRN SHELLFISH MANAGER [address] [place] [address] [phone] Clinical Nurse Specialist Anesthesiology 01/15/23 Radha Lopez, [facility] [address] [place] [address] Pharmacist Pharmacist 01/16/23 Geri Loza PA-C [address] [place] [address] 769105 Assigned Surgical Provider 04/16/23 documented as of this encounter
--- OUTSIDE RECORDS SUMMARY | 2023-06-30 16:56 | XMS_ITS | Encounter Summary ---
Author Name Unknown Organization [facility] Address [address] [place] [address] Care Team Providers Care Hand Deicer Element Winder Name Role Phone Roderick Morelos MD Unavailable [phone] Magno Wood MD Unavailable [phone] Sophie Ocasio AuD Unavailable [phone] Henny Rosales SALES MERCHANDISER PILE DRIVER OPERATOR HELPER Unavailable [phone] Unavailable Kaykay Duarte LCAC OPERATOR Primary Care Provider Christiane Rodríguez MD Unavailable [phone] Jing Cadena SALES MERCHANDISER DRIVERS' CASH CLERK Unavailable [phone] Radha Lopez [facility] Unavailable [phone] Luis A Escobedo MD Unavailable [phone] Geri LozaC Unavailable [phone] Raina Patterson SALES MERCHANDISER PILE DRIVER OPERATOR HELPER Unavailable [phone] Encounter Details Date Type Department Care Team (Late st Contact Info) Description 03/24/2023 MyC Medical Advice [facility] [address] 4th [place] [address] Angélica Milligan Social History Tobacco [...] as of this encounter Care Teams Hand Deicer Element Winder Relationship Specialty Start Date End Date Kaykay Duarte, LCAC OPERATOR [address] [place] [address] PCP - General 10/15/22 Roderick Morelos MD [address] [place] [address] Cardiovascular Disease 02/03/22 Magno Wood MD [address] [place] [address] 396 [place], [place] 936015 Otolaryngology 02/21/22 Sophie Ocasio AuD [address] [place], [place] 161095 Open Tenter Operator Audiology 02/21/22 Henny Rosales APRN PILE DRIVER OPERATOR HELPER [address] [place] [phone] Assigned Heart and Vascular Provider 08/09/[address] [place], [place] 385945 Registered Dietitian Dietitian, Registered 09/02/22 Christiane Rodríguez MD 420 [facility] 396 [place], [place] 227895 Otolaryngology 11/12/22 Jing Cadena APRN DRIVERS' CASH CLERK 420 [facility] 450 [place], [place] 02[address]35 Clinical Nurse Specialist Anesthesiology 01/15/23 Radha Lopez [facility] [address] [place] [address] [phone] Pharmacist Pharmacist 01/16/23 Luis A Escobedo MD 420 [facility] 195 [place], [place] 846785 Assigned Surgical Provider 02/07/23 04/15/23 Geri Loza PA-C [address] [place] [address] 698975 Assigned Surgical Provider 04/16/23 Raina Patterson, GINA PILE DRIVER OPERATOR HELPER [address] [place] 257505 Nurse Practitioner Cardiovascular Disease 05/11/23 documented as of this encounter
--- OUTSIDE RECORDS SUMMARY | 2023-06-30 16:56 | XMS_ITS | Encounter Summary ---
Author Name Unknown Organization [facility] Address [address] [place] [address] Care Team Providers Care Wood Patternmaker Apprentice Name Role Phone Roderick Morelos MD Unavailable [phone] Magno Wood MD Unavailable [phone] Sophie Ocasio AuD Unavailable [phone] Henny Rosales SHOE REPAIRER APPRENTICE COMMANDING OFFICER HOM[place]IDE SQUAD Unavailable [phone] Unavailable Kaykay Duarte TORSION SPRING COILING MACHINE SETTER Primary Care Provider Christiane Rodríguez MD Unavailable [phone] Jing Cadena SHOE REPAIRER APPRENTICE FOUNTAIN ATTENDANT Unavailable [phone] Radha Lopez [facility] Unavailable [phone] Luis A Escobedo MD Unavailable [phone] Geri LozaC Unavailable [phone] Raina Patterson SHOE REPAIRER APPRENTICE COMMANDING OFFICER HOMICIDE SQUAD Unavailable [phone] Encounter Details Date Type Department Care Team (Late st Contact Info) Description 04/06/2023 [facility] [address] 4th [place] [address] Tanya Larsen RN Social History [...] documented as of this encounter Care Teams Wood Patternmaker Apprentice Relationship Specialty Start Date End Date Kaykay Duarte TORSION SPRING COILING MACHINE SETTER [address] [place] [address] PCP - General 10/15/22 Roderick Morelos MD [address] [place] [address] Cardiovascular Disease 02/03/22 Magno Wood MD [address] [place] [address] [id number] Otolaryngology 02/21/22 Sophie Ocaiso AuD 9[address] [place], [place] 635665 Slitting Machine Feeder Audiology 02/21/22 Henny Rosales APRN COMMANDING OFFICER HOMICIDE SQUAD [address] [place] [id number] Assigned Heart and Vascular Provider 08/09/[address] [place] [address] [id number] Registered Dietitian Dietitian, Registered 09/02/22 Christiane Rodríguez MD 420 [facility] 396 [place], [place] 779675 Otolaryngology 11/12/22 Jing Cadena APRN FOUNTAIN ATTENDANT [address] [place] [address] 450 [place], [place] 660415 Clinical Nurse Specialist Anesthesiology 01/15/23 Radha Lopez, [facility] [address] [place] [address] 616485 Pharmacist Pharmacist 01/16/23 Luis A Escobedo MD [address] [place] [address] 195 [place], [place] 779335 Assigned Surgical Provider 02/07/23 04/15/23 Geri Loza PA-C [address] [place] [address] 023495 Assigned Surgical Provider 04/16/23 Raina Patterson APRN COMMANDING OFFICER HOMICIDE SQUAD [address] [place] 006755 Nurse Practitioner Cardiovascular Disease 05/11/23 documented as of this encounter
--- OUTSIDE RECORDS SUMMARY | 2023-06-30 16:56 | XMS_ITS | Encounter Summary ---
Author Name Unknown Organization [facility] Address [address] [place] [address] Care Team Providers Care Test Bore Helper Name Role Phone Roderick Morelos MD Unavailable [phone] Magno Wood MD Unavailable [phone] Sophie Ocasio AuD Unavailable [phone] Henny Rosales MASONRY CONTRACTOR ADMINISTRATOR CROP OR GRAIN FARMWORKER Unavailable [phone] Unavailable Kaykay Duarte MONEY MARKET DEALER Primary Care Provider Christiane Rodríguez MD Unavailable [phone] Jing Cadena MASONRY CONTRACTOR ADMINISTRATOR BOWLING ALLEY ATTENDANT Unavailable Radha Lopez [facility] Unavailable [phone] Luis A Escobedo MD Unavailable Reason for Visit * Reason Comments RECHECK Joseph Nutrition Encounter Details Date Type Department Care Team (Latest Contact Info) Description 03/25/2023 2:30 PM PART TIME Virtual Visit [facility] [address]th [place] [address] Sharee Negron, RD [address] [place] [address] Nutritional counseling (Primary Dx); S/P laparoscopic [...] 129.3 kg (285 lb) 03/25/2023 2:15 PM PART TIME Height 167.6 cm (5' 6) 03/25/2023 2:15 PM PART TIME Body Mass Index 46 03/25/2023 2:15 PM PART TIME documented in this encounter Patient Instructions * Patient Instructions* Sharee Negron, RD - 03/25/2023 2:30 PM PART TIME Goals: 1) Follow diet advancement schedule below. 2) Work towards 60 gm protein/day. 3) Consume 48-64+ oz fluids daily- between meals only once on puree diet 4) Eat slowly (>20 min/meal), chewing well to smooth consistency once on the bariatric soft diet. 5) Limit portions to ~1/4/meal plus 1-2 protein shakes/day as needed 6) Start chewable/liquid multivitamin/minerals daily - Cleaton 2 per day - Add B12 next month - Add Vitamin D next month - Add chewable calcium citrate if needed next month (want 0695-9487 mg/day) Post-op Diet Advancement Schedule: Pureed Diet (stage 3): START April 01 Soft Diet (stage 4): START April 15 Regular Diet (stage 5): START May 13 Post-op Diet Handouts: Diet Guidelines after Weight-loss Surgery http://[employer]/[email or web address] Your Stage 1 Diet: Clear Liquids http://[employer]/955220.pdf Your Stage 2 Diet: Low-fat Full Liquids http://[employer]/781556.pdf Your Stage 3 Diet: Pureed Foods http://[employer]/491972.pdf Pureed Recipes http://[employer]/919469.pdf Your Stage 4 Diet: Soft Foods http://[employer]/209245.pdf Your Stage 5 Diet: Regular Foods http://[employer]/955707.pdf Supplements after Sleeve Gastrectomy, Gastric Bypass or Single Anastomosis Duodenal Switch https://[employer]/867439.pdf Keeping Track of Fluids http://www.[employer]/268045.pdf Exercise Guidelines after Weight Loss Surgery (1st 4-6 weeks) http://www.[employer]/153702.pdf Follow-Up: April 20 at 10:00 am SIVA Terrazas (Duncan), ÁNGEL, LD Clinic #: [phone] TIME documented in this encounter Progress Notes * Sharee Negron RD - 03/25/2023 2:30 PM CST Video-Visit Details Type of service: Video Visit Video Start Time: 2:20 pm Video End Time: 2:50 pm Originating Location (pt. 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 (needs hip replacement [...] needed 6) Start chewable/liquid multivitamin/minerals daily - Cleaton 2 per day - Add B12 next month - Add Vitamin D next month - Add chewable calcium citrate if needed next month (want 0349-4895 mg/day) Post-op Diet Advancement Schedule: Pureed Diet (stage 3): START April 01 Soft Diet (stage 4): START April 15 Regular Diet (stage 5): START May 13 Post-op Diet Handouts: Diet Guidelines after Weight-loss Surgery http://[employer]/082122.pdf Your Stage 1 Diet: Clear Liquids http://[employer]/807731.pdf Your Stage 2 Diet: Low-fat Full Liquids http://[employer]/900991.pdf Your Stage 3 Diet: Pureed Foods http://[employer]/468079.pdf Pureed Recipes http://[employer]/893286.pdf Your Stage 4 Diet: Soft Foods http://[employer]/292509.pdf Your Stage 5 Diet: Regular Foods http://[employer]/733574.pdf Supplements after Sleeve Gastrectomy, Gastric Bypass or Single Anastomosis Duodenal Switch https://[employer]/482388.pdf Keeping Track of Fluids http://www.[employer]/236457.pdf Exercise Guidelines after Weight Loss Surgery (1st 4-6 weeks) http://www.[employer]/055081.pdf Follow-Up: April 20 at 10:00 am Time spent with patient: 30 minutes. SIVA Peacock,, RD, LD TIME documented in this encounter Nursing Notes * Swan [place] - 03/25/2023 2:30 PM CST Is the patient currently in the state of [place]? YES Visit mode:VIDEO If the visit is dropped, the patient can be reconnected by: VIDEO VISIT: Text to cell phone: Telephone Information: Will anyone else be joining the visit? NO (If patient encounters technical issues they should call [phone]) How would you like to obtain your AVS? MyChart Are changes needed to the allergy or medication list? N/A Reason for visit: RECHECK (Joseph Nutrition) Virginia Ramirez VVF TIME documented in this encounter Plan of Treatment [...] documented as of this encounter Care Teams Test Bore Helper Relationship Specialty [place] [address] [place] [address] PCP - General 10/15/22 Roderick Morelos MD [address] [place] [address] Cardiovascular Disease 02/03/22 Magno Wood MD [address] [place] [address] [id number] Otolaryngology 02/21/22 Sophie Ocasio AuD 909 [place], [place] 756945 Stoker Erector Audiology 02/21/22 Henny Rosales APRN CROP OR GRAIN FARMWORKER [address] [place] [phone] Assigned Heart and Vascular Provider 08/09/[address] [place] [address] Registered Dietitian Dietitian, Registered 09/02/22 Christiane Rodríguez MD [address] [place] [address] 396 [place] [address] Otolaryngology 11/12/22 Jing Cadena, MASONRY CONTRACTOR ADMINISTRATOR BOWLING ALLEY ATTENDANT [address] [place] [address] 450 [place], [place] 552305 Clinical Nurse Specialist Anesthesiology 01/15/23 Radha Lopez, [facility] [address] [place] [address] 674055 Pharmacist Pharmacist 01/16/23 Luis A Escobedo MD [address] [place] [address] 195 [place] [address] Assigned Surgical Provider 02/07/23 04/15/23 documented as of this encounter
--- OUTSIDE RECORDS SUMMARY | 2023-06-30 16:56 | XMS_ITS | Encounter Summary ---
Author Name Unknown Organization [facility] Address [address] [place] [address] Care Team Providers Care Nursery Worker Name Role Phone Roderick Morelos MD Unavailable [phone] Magno Wood MD Unavailable [phone] Sophie Ocasio AuD Unavailable [phone] Henny Rosales SALES APPLICATIONS ENGINEER SPECIAL NEEDS CAREGIVER Unavailable Sharee Negron RD Unavailable Kaykay Duarte SNACK STEWARD Primary Care Provider Christiane Rodríguez MD Unavailable [phone] Jing Cadena SALES APPLICATIONS ENGINEER OFFICE COORDINATOR Unavailable Radha Lopez [facility] Unavailable [phone] Luis A Escobedo MD Unavailable [phone] Reason for Visit * Reason Comments Follow Up 1 wk postop Encounter Details Date Type Department Care Team (Late st Contact Info) Description 03/24/2023 10:30 AM PROCESS SAFETY SPECIALIST Office Visit M [facility] [address] 4th [place] [address] Alia Flowers NP [address] [place] [address] S/P laparoscopic sleeve gastrectomy (Primary Dx); [...] Comments Blood Pressure 124/78 03/24/2023 10:20 AM PROCESS SAFETY SPECIALIST Pulse 70 03/24/2023 10:20 AM PROCESS SAFETY SPECIALIST Temperature 36.8 ??C (98.2 ??F) 03/24/2023 1 0:20 AM PROCESS SAFETY SPECIALIST Respiratory Rate 16 03/24/2023 10:2 0 AM PROCESS SAFETY SPECIALIST Oxygen Saturation 99% 03/24/2023 10: 20 AM PROCESS SAFETY SPECIALIST Inhaled Oxygen Concentration - - Weight 130.5 kg (287 lb 11.2 oz) 2023 10:20 AM PROCESS SAFETY SPECIALIST Height 165.1 cm (5' 5) 03/24/2023 10:2 0 AM PROCESS SAFETY SPECIALIST Body Mass Index 47.88 03/24/2023 10:20 AM PROCESS SAFETY SPECIALIST documented in this encounter Patient Instructions * Patient Instructions* Alia Flowers NP - 03/24/2023 10:30 AM PROCESS SAFETY SPECIALIST Thank you for allowing us the [...] review of our visit. If our clinical dietitian is not able to reach you please call [phone] to schedule your next appointments. Try flavorless protein powder or collagen powder Continue taking omeprazole daily until follow up- will consider stopping at that time Continue to hold mounjaro Start checking blood sugars - fasting in the morning Check lab today Follow up Geri Loza PA-C 04/20/2022 Information about Video Visits with [employer]: video visit information If you are asked by your clinic team to have your blood pressure checked: [facility] do offer several locations for blood pressure checks. Please follow the below link to schedule an appointment. Scheduling an appointment at the pharmacy for a blood pressure check is now preferred. Appointment Plus (appointment-plus.[employer]ging [employer]) Important contact and scheduling information: Please call our contact center at [phone] to schedule your next appointments. To find a lab location near you, please call . For any nursing questions or concerns call Angélica Milligan LPN at [phone] or Henny Lobo RN [phone] Please call during clinic hours Thursday through Thursday 8:00a - 4:00p if you have questions or you can contact us via [employer] at anytime and we will reply during clinic hours. Lab results will be communicated through My Chart or letter (if My Chart not used). Please call theclinic if you have not received communication after 1 week or if you have any questions.? Clinic Meal Replacement Products: Here is the link to our new e-store where you can purchase our meal replacement products [facility] E-Store Exercise.[email or web address]/store The one week starter kit is a great way to sample a variety of products and see what works for you. If you want more information about the product go to: Rue La La If you are an employee or [facility] or [facility] please contact your care team for a 10% estore discount Free Shipping for orders over $75 Benefits of meal replacements products: Portion and calorie control Improved nutrition Structured eating Simplified food choices Avoid contact with trigger foods Interested in working with a health swim coach? Health coaches work with you to improve your overall health and wellbeing. They look at the whole person, and may involve discussion of different areas of life, including, but not limited to the four pillars of health (sleep, exercise, nutrition, and stress management). Discuss with your care team if you would like to start working a health swim coach. Health Coaching-3 Pack: Schedule by calling [phone] ?? $99 for three health coaching visits ?? Visits may be done in person or via phone ?? Coaching is a partnership between the swim coach and the client; Coaches do not [...] of the way. Monthly meetings with your ramp flight attendant or medical weight management provider help to review your progress, update your care plan, and make any adjustments needed to ensure success. Between these visits, weekly and bi-weekly health swim coach visits will help you focus on the four pillars of weight loss -- stress, sleep, nutrition, and exercise -- and how you can best adapt each to achieve sustainable weight loss results. In addition, you will be given exclusive access to online wellbeing classes through [employer]. Your initial visit will be with a medical weight management provider who will help to understand your weight loss goals and ensure this program is the right fit for you. Please let our team know if you are interested in the 24 week plan by sending a message to your care team or calling [phone] schedule. [facility] Get Moving Program Our [...] the program with your medical provider or elementary educator. You can also call us at [phone] to ask questions or schedule an appointment. [facility] Get Moving Program [facility] Diabetes Prevention Program (DPP) If you have prediabetes and Medicare please contact us via MyChart to learn more about the DiabetesPrevention Program (DPP) Program Details: [facility] offers the year-long Diabetes Prevention Program (DPP). The program helps you to make lifestyle changes that prevent or delay type 2 diabetes by supporting healthy eating, increasedphysical activity, stress reduction and use of coping skills. On average, previous [facility] DPP cohorts have lost and maintained at [...] can resume, they will be held at [facility]. For people with Medicare, the program is covered in full. A self-pay option will also be available for those with non-Medicare insurance plans. To work with a Behavioral Health Psychologist: Call to schedule: John Lin - Marleni Tomlinson - Love Valdes - Rosie Henderson - Liana Lyons PhD (cannot accept Medicare) [phone] Thank you, [facility] Comprehensive Weight Management Team ESS SAFETY SPECIALIST documented in this encounter Progress Notes * Alia Flowers NP - 03/24/2023 10:30 AM CST Postoperative bariatric surgery visit. Patient underwent sleeve to RYNGB with hiatal hernia repair-1 week ago. 03/18/2023 Dr. Escobedo. Sleeve done at [facility] - recurrent and persistent obesity with GERD. [...] up Geri Loza PA-C 04/20/2023 LEAH Madsen [facility] [place] ESS SAFETY SPECIALIST documented in this encounter Nursing Notes [...] index is 47.88 kg/m??. Cresencio Ellison NRP ESS SAFETY SPECIALIST documented in this encounter Plan of [...] documented as of this encounter Care Teams Nursery Worker Relationship Specialty [place] [address] [place] [address] PCP - General 10/15/22 Roderick Morelos MD [address] [place] 426825 Cardiovascular Disease 02/03/22 Magno Wood MD 420 [facility] 396 [place], [place] 412035 Otolaryngology 02/21/22 Sophie Ocasio AuD [address] [place], [place] 393165 Patrol Sergeant Sheriff'S Office Audiology 02/21/22 Henny Rosales, SALES APPLICATIONS ENGINEER SPECIAL NEEDS CAREGIVER [address] [place] [phone] Assigned Heart and Vascular Provider 08/09/[address] [place], [place] 327365 Registered Dietitian Dietitian, Registered 09/02/22 Christiane Rodríguez MD 420 [facility] [address] [place], [place] 239255 Otolaryngology 11/12/22 Jing Cadena, SALES APPLICATIONS ENGINEER OFFICE COORDINATOR 420 [facility] [address] [place], [place] 689565 Clinical Nurse Specialist Anesthesiology 01/15/23 Radha Lopez, [facility] [address] [place], [place] 117675 Pharmacist Pharmacist 01/16/23 Luis A Escobedo MD 420 [facility] 195 [place], [place] 956505 Assigned Surgical Provider 02/07/23 04/15/23 documented as of this encounter
--- OUTSIDE RECORDS SUMMARY | 2023-06-30 16:56 | XMS_ITS | Encounter Summary ---
Author Name Unknown Organization [facility] Address [address] [place] [address] Care Team Providers Care Patent Litigation Associate Name Role Phone Roderick Morelos MD Unavailable [phone] Magno Wood MD Unavailable [phone] Sophie Ocasio AuD Unavailable [phone] Henny Rosales STEWARD/STEWARDESS DECK BUSINESS OPERATIONS ANALYST Unavailable [phone] Unavailable Kaykay Duarte ASSOCIATE PROFESSOR OF CHEMISTRY Primary Care Provider Christiane Rodríguez MD Unavailable [phone] Jing Cadena STEWARD/STEWARDESS DECK CHIEF LOAD DISPATCHER Unavailable [phone] Radha Lopez [facility] Unavailable [phone] Luis A Escobedo MD Unavailable [phone] Geri LozaC Unavailable [phone] Raina Patterson STEWARD/STEWARDESS DECK BUSINESS OPERATIONS ANALYST Unavailable [phone] Encounter Details Date Type Department Care Team (Late st Contact Info) Description 03/25/2023 [facility] Medical Advice [facility] [address] 4th [place] [address] Mychart, [facility] Social History Tobacco Use Types Packs/Day Years [...] documented as of this encounter Care Teams Patent Litigation Associate Relationship Specialty Start Date End Date Kaykay Duarte, ASSOCIATE PROFESSOR OF CHEMISTRY [address] [facility] [place] [address] PCP - General 10/15/22 Roderick Morelos MD [address] [place] [address] Cardiovascular Disease 02/03/22 Magno Wood MD [address] [place] [address] 396 [place], [place] 557975 Otolaryngology 02/21/22 Sophie Ocasio AuD [address] [place], [place] 380515 Zoo Director Audiology 02/21/22 Henny Rosales APRN BUSINESS OPERATIONS ANALYST [address] [place] [phone] Assigned Heart and Vascular Provider 08/09/[address] [place] [address] 118305 Registered Dietitian Dietitian, Registered 09/02/22 Christiane Rodríguez MD 420 [facility] [address] [place], [place] 991485 Otolaryngology 11/12/22 Jing Cadena APRN CHIEF LOAD DISPATCHER 420 [facility] 450 [place], [place] 975355 Clinical Nurse Specialist Anesthesiology 01/15/23 Radha Lopez [facility] [address] [place] [address] 515855 Pharmacist Pharmacist 01/16/23 Luis A Escobedo MD 420 [facility] 195 [place], [place] 743975 Assigned Surgical Provider 02/07/23 04/15/23 Geri Loza PA-C [address] [place] [address] 288825 Assigned Surgical Provider 04/16/23 Raina Patterson, [place] BUSINESS OPERATIONS ANALYST [address] [place] 249605 Nurse Practitioner Cardiovascular Disease 05/11/23 documented as of this encounter
--- OUTSIDE RECORDS SUMMARY | 2023-06-30 16:56 | XMS_ITS | Encounter Summary ---
Author Name Unknown Organization [facility] Address [address] [place] [address] Care Team Providers Care Bulk Coolers Installer Name Role Phone Roderick Morelos MD Unavailable [phone] Magno Wood MD Unavailable [phone] Sophie Ocasio AuD Unavailable [phone] Henny Rosales CAR REPOSSESSOR SYSTEMS ARCHITECT Unavailable [phone] Unavailable Kaykay Duarte DINING ROOM HOST/HOSTESS Primary Care Provider Christiane Rodríguez MD Unavailable [phone] Jing Cadena CAR REPOSSESSOR COMPOSITION BOARD PRESS OPERATOR Unavailable Radha Lopez [facility] Unavailable [phone] Luis A Escobedo MD Unavailable [phone] Geri LozaC Unavailable [phone] Raina Patterson CAR REPOSSESSOR SYSTEMS ARCHITECT Unavailable [phone] Encounter Details Date Type Department Care Team (Late st Contact Info) Description 04/02/2023 [facility] Medical Advice [facility] [address] 4th [place] [address] Tanya Larsen RN Social History [...] as of this encounter Care Teams Bulk Coolers Installer Relationship Specialty Start Date End Date Kaykay Duarte DINING ROOM HOST/HOSTESS [address] [place] [address] PCP - General 10/15/22 Roderick Morelos MD [address] [place] [address] Cardiovascular Disease 02/03/22 Magno Wood MD [address] [place] [address] 18762455 Otolaryngology 02/21/22 Sophie Ocasio AuD 909 [place], [place] 132555 Pond Scaler Audiology 02/21/22 Henny Rosales APRN SYSTEMS ARCHITECT [address] [place] [phone] Assigned Heart and Vascular Provider 08/09/[address] [place] [address] [phone] Registered Dietitian Dietitian, Registered 09/02/22 Christiane Rodríguez MD 420 [facility] 396 [place], [place] 681035 Otolaryngology 11/12/22 Jing Cadena APRN COMPOSITION BOARD PRESS OPERATOR [address] [place] [address] 450 [place], [place] 517905 Clinical Nurse Specialist Anesthesiology 01/15/23 Radha Lopez, [facility] [address] [place] [address] 915375 Pharmacist Pharmacist 01/16/23 Luis A Escobedo MD [address] [place] [address] 195 [place], [place] 240895 Assigned Surgical Provider 02/07/23 04/15/23 Geri Loza PA-C [address] [place] [address] 269735 Assigned Surgical Provider 04/16/23 Raina Patterson APRN SYSTEMS ARCHITECT [address] [place] 638455 Nurse Practitioner Cardiovascular Disease 05/11/23 documented as of this encounter
--- OUTSIDE RECORDS SUMMARY | 2023-06-30 16:56 | XMS_ITS | Clinical Summary ---
Author Name Unknown Organization [facility] Address [place], [place] [address] Care Team Providers Care Nurse Unit Manager Name Role Phone Brandan Burleson MD Unavailable [phone] Pcp, No Primary Care Provider Unavailabl e [...] solution (FLONASE)Indications :Purulent postnasal drainage Inhale 1 Reese into both nostrils 2 times daily. 1 [...] Department Care Team Description 05/12/2023 Orders Only [facility] [address] [place] [address] Paz Frye 1 scan: (1-Ord) Holter Report ([id number]) 05/09/2023 2:14 PM TREADLE CUT OFF SAW OPERATOR - 05/09/2023 11:59 PM TREADLE CUT OFF SAW OPERATOR Hospital Encounter [facility] [address] [place] [address] Tete Zuñiga from Last 3 Months Immunizations [...] age 21-65 05/21/2018 6 ([facility] 05/22/2011 Zoster (shingles) series for age 50+ (1 of 2) 2018 Lipids for age 45-75 02/10/2021 02/11/2016, 06/29/19 15 COVID-19 vaccine series ( season) 2022 11/28/2020, 06/19/2020 Influenza for age 50-64 11/22/2023 12/22/19 16, 01/01/2015, 01/16/2014, Additional history exists Pneumococcal series for age 6-64 Aged Out No longer eligible based on patient's age to complete this topic Medical Devices Implanted Type Area Steam Fitter Device Identifier Shelf Expiration Date Model / Serial / Lot Prosth Torq 14-0961 - [id number] Implanted:Qty: 1 on 05/20/2005 at [facility] Ent Implants Right: Ear [employer] [id number]# / / Procedures Procedure Name Priority Date/Time Associated Diagnosis Comments HOLTER MONITOR 24 HOURS Routine 05/13/2023 12:00 AM TREADLE CUT OFF SAW OPERATOR Palpitations LIPID PANEL W REFLEX MEASURED LDL Routine 02/11/2016 2:52 PM TREADLE CUT OFF SAW OPERATOR Hyperlipidemia, unspecified hyperlipidemia type XR MAMMO RAVI BILAT SCREEN Routine 01/30/2016 9:52 AM TREADLE CUT OFF SAW OPERATOR Visit for screening mammogram from Last 3 Months or Most Recently Relevant to Health Maintenance Results * HOLTER MONITOR 24 HOURS (05/13/2023 12:00 AM TREADLE CUT OFF SAW OPERATOR) Tete Zuñiga [facility] ORD * (ABNORMAL) LIPID PANEL W REFLEX MEASURED LDL (02/11/2016 2:52 PM TREADLE CUT OFF SAW OPERATOR) CHOLESTEROL,TOTAL 271(H) 100 - 199 mg/dL 02/11/2016 8:04 PM TREADLE CUT OFF SAW OPERATOR [facility] TRIGLYCERIDES 178(H) <150 mg/dL 02/11/2016 8:04 PM TREADLE CUT OFF SAW OPERATOR [facility] HDL CHOLESTEROL 49 >40 mg/dL 6 8:04 PM TREADLE CUT OFF SAW OPERATOR [facility] NON-HDL CHOLESTEROL 222(H) <145 mg/dl 02/11/2016 8:04 PM TREADLE CUT OFF SAW OPERATOR [facility] CHOL/HDL RATIO 5.53(H) <4.50 02/11/2016 8:04 PM [facility] LDL CHOLESTEROL 186(H) <=130 mg/dL 02/11/2016 8:04 PM TREADLE CUT OFF SAW OPERATOR [facility] PATIENT STATUS NON-FASTI NG 02/11/2016 8:04 PM TREADLE CUT OFF SAW OPERATOR [facility] Blood BLOOD SPECIMEN / Unknown Venipuncture / Unknown 02/11/2016 2:52 PM TREADLE CUT OFF SAW OPERATOR 02/11/2016 2:52 PM TREADLE CUT OFF SAW OPERATOR Edda VERGARA [facility] [address] [place] [address], [place] * XR MAMMO RAVI SCREEN BILAT (01/30/2016 9:52 AM TREADLE CUT OFF SAW OPERATOR) Anatomical Region Laterality Modality BREASTS, Breast Left, Breast Right Bilateral Mammography Impressions 01/30/2016 11:17 AM TREADLE CUT OFF SAW OPERATOR ??There is no radiographic evidence for malignancy. ??Recommend annual mammograms. A lay language report of this examination will be provided to the patient. MAMMOGRAM ASSESSMENT: ??ACR 2 Benign Narrative 01/30/2016 11:17 AM TREADLE CUT OFF SAW OPERATOR XR MAMMO RAVI SCREEN BILAT [[id number]] CLINICAL HISTORY: ??This is an asymptomatic 45 y.o. patient. INDICATION FOR EXAM: Mammogram Screening. TECHNIQUE: CC & MLO views were obtained. ??This digital study was evaluated with the assistance of Computer-Aided Detection. Breast Tomosynthesis was used in interpretation. COMPARISON FILMS: Yes 02/10/15 [facility] 01/18/14 [facility] FINDINGS: ??Mammographically, the breast tissue has scattered fibroglandular densities. ??No suspicious masses or microcalcifications. ?? Benign appearing calcifications within both breasts. Brandan Burleson MD MAMMO from Last 3 Months or Most Recently Relevant to Health Maintenance Advance Directives * Full Code (Latest Code Status on File) Date Activated Date Inactivated Comments 05/20/2005 7:01 AM 05/20/2005 4:28 PM Care Teams Nurse Unit Manager Relationship Specialty Start Date End Date Pcp, No . PCP - General 03/24/20 Brandan Burleson MD Gynecology Obstetrics and Gynecology 09/19/15
--- OUTSIDE RECORDS SUMMARY | 2023-06-30 16:56 | XMS_ITS | Encounter Summary ---
Author Name Unknown Organization [place] Address [address] [place] [address] Care Team Providers Care Milk Treater Name Role Phone Roderick Morelos MD Unavailable [phone] Magno Wood MD Unavailable [phone] Sophie Ocasio AuD Unavailable [phone] Henny Rosales IRON PELLET TESTER INTERNATIONAL RELATIONS TEACHER Unavailable [phone] Unavailable Kaykay Duarte CONTINUOUS IMPROVEMENT BLACK BELT Primary Care Provider [phone] Christiane Rodríguez MD Unavailable [phone] Jing Cadena IRON PELLET TESTER HANDLE BENDER Unavailable [phone] Radha Lopez [facility] Unavailable [phone] Luis A Escobedo MD Unavailable [phone] Geri LozaC Unavailable [phone] Raina [place] IRON PELLET TESTER INTERNATIONAL RELATIONS TEACHER Unavailable [phone] Encounter Details Date Type Department Care Team (Late st Contact Info) Description 03/31/2023 [facility] Medical Advice [facility] [address] 4th [place] [address] Tanya Larsen RN Social History [...] documented as of this encounter Care Teams Milk Treater Relationship Specialty Start Date End Date Kaykay Duarte CONTINUOUS IMPROVEMENT BLACK BELT [address] [place] [address] PCP - General 10/15/22 Roderick Morelos MD [address] [place] [address] Cardiovascular Disease 02/03/22 Magno Wood MD [address] [place] [address] [phone] Otolaryngology 02/21/22 Sophie Ocasio AuD [address] [place], [place] 702615 Corporate Director Of Human Resources Audiology 02/21/22 Henny Rosales APRN INTERNATIONAL RELATIONS TEACHER [address] [place] [id number] Assigned Heart and Vascular Provider 08/09/[address] [place] [address] [phone] Registered Dietitian Dietitian, Registered 09/02/22 Christiane Rodríguez MD 420 [facility] [address] [place], [place] 418485 Otolaryngology 11/12/22 Jing Cadena APRN HANDLE BENDER [address] [place] [address] 450 [place], [place] 645935 Clinical Nurse Specialist Anesthesiology 01/15/23 Radha Lopez, [facility] [address] [place] [address] 604095 Pharmacist Pharmacist 01/16/23 Luis A Escobedo MD [address] [place] [address] 195 [place], [place] 880635 Assigned Surgical Provider 02/07/23 04/15/23 Geri Loza PA-C [address] [place] [address] 647015 Assigned Surgical Provider 04/16/23 Raina [place] APRN INTERNATIONAL RELATIONS TEACHER [address] [place] 599555 Nurse Practitioner Cardiovascular Disease 05/11/23 documented as of this encounter
--- OUTSIDE RECORDS SUMMARY | 2023-06-30 16:56 | XMS_ITS | Encounter Summary ---
Author Name Unknown Organization [facility] Address [address] [place] [address] Care Team Providers Care Belting Inspector Name Role Phone Roderick Morelos MD Unavailable [phone] Magno Wood MD Unavailable [phone] Sophie Ocasio AuD Unavailable [phone] Henny Rosales TEXTILE BAG SEWER DIRECTOR LIFE Unavailable [phone] Unavailable Kaykay Duarte PLATINUM SMITH Primary Care Provider Christiane Rodríguez MD Unavailable [phone] Jing Cadena TEXTILE BAG SEWER CARPET OR RUG LAYER HELPER Unavailable Radha Lopez [facility] Unavailable [phone] Luis A Escobedo MD Unavailable [phone] Geri LozaC Unavailable [phone] Raina [place] TEXTILE BAG SEWER DIRECTOR LIFE Unavailable [phone] Encounter Details Date Type Department Care Team (Late st Contact Info) Description 04/14/2023 [facility] [place] [facility] [address] 4th [place] [address] Tanya Larsen RN Social History [...] BRIAN PATHWAY SURGERY IS SCHEDULED Care Plan RBIAN PATHWAY SURGERY IS SCHEDULED No Luis A Escobedo MD documented as of this encounter Visit Diagnoses Not on filedocumented in this encounter Additional Health Concerns Problem Noted Date Diagnosed Date BRIAN PATHWAY SURGERY IS SCHEDULED 10/15/2022 documented as of this encounter Care Teams Belting Inspector Relationship Specialty Start Date End Date Kaykay Duarte PLATINUM SMITH [address] [place] [address] PCP - General 10/15/22 Roderick Morelos MD [address] [place] [address] Cardiovascular Disease 02/03/22 Magno Wood MD [address] [place] [address] [phone] Otolaryngology 02/21/22 Sophie Ocasio AuD [address] [place], [place] 708805 Wrapper Sheeter Audiology 02/21/22 Henny Rosales APRN DIRECTOR LIFE [address] [place] [id number] Assigned Heart and Vascular Provider 08/09/[address] [place] [address] [phone] Registered Dietitian Dietitian, Registered 09/02/22 Christiane Rodríguez MD 420 [facility] 396 [place], [place] 440195 Otolaryngology 11/12/22 Jing Cadena APRN CARPET OR RUG LAYER HELPER [address] [place] [address] 450 [place], [place] 286035 Clinical Nurse Specialist Anesthesiology 01/15/23 Radha Lopez, [facility] [address] [place] [address] 573215 Pharmacist Pharmacist 01/16/23 Luis A Escobedo MD [address] [place] [address] 195 [place], [place] 635065 Assigned Surgical Provider 02/07/23 04/15/23 Geri Loza PA-C [address] [place] [address] [phone] Assigned Surgical Provider 04/16/23 Raina [place] APRN DIRECTOR LIFE [address] [place] 218385 Nurse Practitioner Cardiovascular Disease 05/11/23 documented as of this encounter
--- OUTSIDE RECORDS SUMMARY | 2023-06-30 16:56 | XMS_ITS | Encounter Summary ---
Author Name Unknown Organization [facility] Address [address] [place] [address] Care Team Providers Care Melter Assistant Name Role Phone Roderick Morelos MD Unavailable [phone] Magno Wood MD Unavailable [phone] Sophie Ocasio AuD Unavailable [phone] Henny Rosales NUMEROLOGIST SVP MARKETING Unavailable Sharee Negron RD Unavailable Kaykay Duarte NP Primary Care Provider Christiane Rodríguez MD Unavailable Jing Cadena NUMEROLOGIST DIRECTOR LIFE SALES Unavailable Radha Lopez [facility] Unavailable Geri LozaC Unavailable [phone] Raina [place] APRN SVP MARKETING Unavailable Encounter Details Date Type Department Care Team (Late st Contact Info) Description 04/23/2023 [facility] Advice [facility] [place] 8[address]69 [facility] 4th [place] [address] Kang Griffiths Social History Tobacco [...] documented as of this encounter Care Teams Melter Assistant Relationship Specialty Start Date End Date Kaykay Duarte FLEXIBLE MACHINING SYSTEM MACHINIST [address] [place] [address] PCP - General 10/15/22 Roderick Morelos MD [address] [place] [id number] Cardiovascular Disease 02/03/22 Magno [place] MD 420 [facility] 396 [place], [place] 965755 Otolaryngology 02/21/22 Sophie Ocasio AuD 9[address] [place], [place] 727095 Street Sprinkler Audiology 02/21/22 Henny Rosales APRN SVP MARKETING [address] [place] [id number] Assigned Heart and Vascular Provider 08/09/[address] [place] [address] [phone] Registered Dietitian Dietitian, Registered 09/02/22 Christiane Rodríguez MD 420 [facility] [address] [place], [place] 020315 Otolaryngology 11/12/22 Jing Cadena APRN DIRECTOR LIFE SALES 420 [facility] 450 [place], [place] 443325 Clinical Nurse Specialist Anesthesiology 01/15/23 Radha Lopez, [facility] [address] [place] [address] 778375 Pharmacist Pharmacist 01/16/23 Geri Loza PA-C [address] [place] [address] 897525 Assigned Surgical Provider 04/16/23 Raina [place] APRN SVP MARKETING [address] [place] 513555 Nurse Practitioner Cardiovascular Disease 05/11/23 documented as of this encounter
--- OUTSIDE RECORDS SUMMARY | 2023-06-30 16:57 | XMS_ITS | Encounter Summary ---
Author Name Unknown Organization [facility] Address [address] [place] [address] Care Team Providers Care Marine Surveyor Name Role Phone Roderick Morelos MD Unavailable [phone] Magno Wood MD Unavailable [phone] Sophie Ocasio AuD Unavailable [phone] Henny Rosales PATCH SANDER UTILITY PERSON Unavailable [phone] Unavailable Kaykay Duarte FAST FOOD WORKER Primary Care Provider Christiane Rodríguez MD Unavailable [phone] Chely FernandezC Unavailable [phone] Jing Cadena PATCH SANDER ADVERTISING SALES CONSULTANT Unavailable Radha Lopez [facility] Unavailable [phone] Luis A Escobedo MD Unavailable [phone] Geri LozaC Unavailable [phone] Raina [place] PATCH SANDER UTILITY PERSON Unavailable [phone] Encounter Details Date Type Department Care Team (Late st Contact Info) Description 01/21/2023 [facility] [address] [place] [address] Radha Dominguez, RN 420 [facility] 195 [place] [address] Social History Tobacco Use Types [...] documented as of this encounter Care Teams Marine Surveyor Relationship Specialty [place] [address] [place] [address] PCP - General 10/15/22 Roderick Morelos MD [address] [place] [address] Cardiovascular Disease 02/03/22 Magno [place] MD 420 [facility] 396 [place], [place] 906075 Otolaryngology 02/21/22 Sophie Ocasio AuD [address]09 [place], [place] 066905 Fireproof Door Maker Audiology 02/21/22 Henny Rosales, PATCH SANDER UTILITY PERSON [address] [place] [phone] Assigned Heart and Vascular Provider 08/09/[address] [place] [address] [phone] Registered Dietitian Dietitian, Registered 09/02/22 Christiane Rodríguez MD [address] [place] [address] 396 [place], [place] 965355 Otolaryngology 11/12/22 Chely Fernandez PA-C [address] [place] [address] 572425 Assigned Surgical Provider 11/29/22 02/06/23 Jing Cadena PATCH SANDER ADVERTISING SALES CONSULTANT [address] [place] [address] 450 [place] [address] Clinical Nurse Specialist Anesthesiology 01/15/23 Radha [place], [facility] [address] [place] [address] 130925 Pharmacist Pharmacist 01/16/23 Luis A Escobedo MD 420 [facility] 195 [place], [place] 470445 Assigned Surgical Provider 02/07/23 04/15/23 Geri Loza PA-C [address] [place] [address] 139945 Assigned Surgical Provider 04/16/23 Raina [place], PATCH SANDER UTILITY PERSON [address] [facility] [address] [place] 274185 Nurse Practitioner Cardiovascular Disease 05/11/23 documented as of this encounter
--- OUTSIDE RECORDS SUMMARY | 2023-06-30 16:57 | XMS_ITS | Encounter Summary ---
Author Name Unknown Organization [facility] Address [address] [facility] [place] [address] Care Team Providers Care Frame Nailer Name Role Phone Roderick Morelos MD Unavailable [phone] Magno Wood MD Unavailable Sophie Ocasio AuD Unavailable [phone] Henny Rosales DRY MOLDER CAPONIZER Unavailable [phone] Unavailable Kaykay Duarte NATIONAL ACCOUNT EXECUTIVE Primary Care Provider Christiane Rodríguez MD Unavailable [phone] Jing Cadena DRY MOLDER APPOINTMENT SETTER Unavailable [phone] Radha Lopez [facility] Unavailable Luis A Escobedo MD Unavailable [phone] Geri LozaC Unavailable [phone] Raina [place] DRY MOLDER CAPONIZER Unavailable [phone] Encounter Details Date Type Department Care Team (Late st Contact Info) Description 03/17/2023 [facility] Medical Advice UR PREOP/PHASE II [address] [place] [address] Pearl Rocha, RN Social History Tobacco [...] documented as of this encounter Care Teams Frame Nailer Relationship Specialty Start Date End Date Kaykay Duarte NATIONAL ACCOUNT EXECUTIVE [address] [place] [address] PCP - General 10/15/22 Roderick Morelos MD [address] [place] [address] Cardiovascular Disease 02/03/22 Magno [place] MD [address] [place] [address] 396 [place], [place] 922995 Otolaryngology 02/21/22 Sophie Ocasio AuD 909 [place], [place] 852405 Blacksmith Hammer Operator Audiology 02/21/22 Henny Rosales APRN CAPONIZER [address] [place] [phone] Assigned Heart and Vascular Provider 08/09/[address] [place] [address] 529555 Registered Dietitian Dietitian, Registered 09/02/22 Christiane Rodríguez MD 420 [facility] 396 [place], [place] 982815 Otolaryngology 11/12/22 Jing Cadena APRN APPOINTMENT SETTER 420 [facility] 450 [place], [place] 080415 Clinical Nurse Specialist Anesthesiology 01/15/23 Radha Lopez [facility] [address] [place] [address] 592155 Pharmacist Pharmacist 01/16/23 Luis A Escobedo MD 420 [facility] 195 [place], [place] 447085 Assigned Surgical Provider 02/07/23 04/15/23 Geri Loza PA-C [address] [place] [address] 665645 Assigned Surgical Provider 04/16/23 Raina [place], GINA CAPONIZER [address] [place] 071915 Nurse Practitioner Cardiovascular Disease 05/11/23 documented as of this encounter
--- OUTSIDE RECORDS SUMMARY | 2023-06-30 16:57 | XMS_ITS | Encounter Summary ---
Author Name Unknown Organization [facility] Address [address] [place] [address] Care Team Providers Care Route Sales Person Name Role Phone Roderick Morelos MD Unavailable [phone] Magno Wood MD Unavailable [phone] Sophie Ocasio AuD Unavailable [phone] Henny Rosales WOOL BATTING WORKER SPACE STUDIES FACULTY MEMBER Unavailable [phone] Unavailable Kaykay Duarte UX INFORMATION ARCHITECT Primary Care Provider Christiane Rodríguez MD Unavailable [phone] Chely FernandezC Unavailable [phone] Jing Cadena WOOL BATTING WORKER ANALYTICAL LAB TECHNICIAN Unavailable Radha Lopez [facility] Unavailable [phone] Luis A Escobedo MD Unavailable [phone] Geri LozaC Unavailable [phone] Raina [place] WOOL BATTING WORKER SPACE STUDIES FACULTY MEMBER Unavailable [phone] Encounter Details Date Type Department Care Team (Late st Contact Info) Description 01/13/2023 [facility] Social History Tobacco Use [...] documented as of this encounter Care Teams Route Sales Person Relationship Specialty Start Date End Date Kaykay Duarte UX INFORMATION ARCHITECT [address] [place] [address] PCP - General 10/15/22 Roderick Morelos MD [address] [place] [address] Cardiovascular Disease 02/03/22 Magno [place] MD 420 [facility] 396 [place], [place] 186155 Otolaryngology 02/21/22 Sophie Ocasio AuD 909 [place], [place] 526565 Equipment Processer Storage Audiology 02/21/22 Henny Rosales APRN SPACE STUDIES FACULTY MEMBER [address] [place] [id number] Assigned Heart and Vascular Provider 08/09/[address] [place], [place] 362335 Registered Dietitian Dietitian, Registered 09/02/22 Christiane Rodríguez MD 420 [facility] 396 [place], [place] 638825 Otolaryngology 11/12/22 Chely Fernandez PA-C [address] [place] [address] 553935 Assigned Surgical Provider 11/29/22 02/06/23 Jing Cadena APRN ANALYTICAL LAB TECHNICIAN 420 [facility] 450 [place], [place] 095455 Clinical Nurse Specialist Anesthesiology 01/15/23 Radha Lopez, [facility] [address] [place] [address] 987775 Pharmacist Pharmacist 01/16/23 Luis A Escobedo MD 420 [facility] 195 [place], [place] 698945 Assigned Surgical Provider 02/07/23 04/15/23 Geri Loza PA-C [address] [place] [address] 547655 Assigned Surgical Provider 04/16/23 Raina [place] APRN SPACE STUDIES FACULTY MEMBER [address] [place] 652185 Nurse Practitioner Cardiovascular Disease 05/11/23 documented as of this encounter
--- OUTSIDE RECORDS SUMMARY | 2023-06-30 16:57 | XMS_ITS | Encounter Summary ---
Author Name Unknown Organization [facility] Address [address] [place] [address] 35172 Care Team Providers Care Electric Power Machine Operator Name Role Phone Roderick Morelos MD Unavailable [phone] Magno Wood MD Unavailable [phone] Sophie Ocasio AuD Unavailable [phone] Henny Rosales PRESS ROOM SUPERVISOR WELL CONTROL INSTRUCTOR Unavailable [phone] Unavailable Kaykay Duarte BILLING ANALYST Primary Care Provider [phone] Christiane Rodríguez MD Unavailable [phone] Chely FernandezC Unavailable [phone] Jing Cadena PRESS ROOM SUPERVISOR [employer] Unavailable Radha Lopez [facility] Unavailable [phone] Luis A Escobedo MD Unavailable [phone] Geri LozaC Unavailable [phone] Raina Patterson PRESS ROOM SUPERVISOR WELL CONTROL INSTRUCTOR Unavailable [phone] Encounter Details Date Type Department Care Team (Late st Contact Info) Description 01/26/2023 [facility] [address]th [place] [phone] Geri Loza PA-C 909 [place], [place] 635775 Social History Tobacco Use Types Packs/Day Years [...] 01/26/2023 at 9:59 AM by Tamera Bhardwaj CHARGE BOOKKEEPER documented in this encounter Plan of Treatment [...] documented as of this encounter Care Teams Electric Power Machine Operator Relationship Specialty Start Date End Date Kaykay Duarte, BILLING ANALYST [address] [place] [address] PCP - General 10/15/22 Roderick Morelos MD [address] [place] [address] Cardiovascular Disease 02/03/22 Magno Wood MD [address] [place] [address]109 Otolaryngology 02/21/22 Sophie Ocasio AuD [address] [place] [address] 689385 Glycerine Plant Operator Audiology 02/21/22 Henny Rosales APRN WELL CONTROL INSTRUCTOR 6[address] [facility] [address] [place] [address] Assigned Heart and Vascular Provider 08/09/[address] [place] [address] 962315 Registered Dietitian Dietitian, Registered 09/02/22 Christiane Rodríguez MD [address] [place] [address] 85554 Otolaryngology 11/12/22 Chely Fernandez PA-C [address] [place] [address] 958995 Assigned Surgical Provider 11/29/22 02/06/23 Jing Cadena APRN [employer] [address] [place] [address] 291385 Clinical Nurse Specialist Anesthesiology 01/15/23 Radha Lopez, [facility] [address] [place] [address] 88783 Pharmacist Pharmacist 01/16/23 Luis A Escobedo MD [address] [place] [address] 195 [place] [address] Assigned Surgical Provider 02/07/23 04/15/23 Geri Loza PA-C [address] [place] [address] 60402 Assigned Surgical Provider 04/16/23 Raina Patterson APRN [facility] [employer] [facility] [employer] [address] [place] [address] Nurse Practitioner Cardiovascular Disease 05/11/23 documented as of this encounter
--- OUTSIDE RECORDS SUMMARY | 2023-06-30 16:57 | XMS_ITS | Encounter Summary ---
Author Name Unknown Organization [facility] Address [address] [place] [address]98 Care Team Providers Care Stroke Coordinator Name Role Phone Roderick Morelos MD Unavailable [phone] Magno Wood MD Unavailable [phone] Sophie Ocasio AuD Unavailable [phone] Henny Rosales MILK RECEIVER HYPERION DEVELOPER Unavailable [phone] Unavailable Kaykay Duarte CLAIMS MANAGER Primary Care Provider Christiane Rodríguez MD Unavailable [phone] Chely FernandezC Unavailable [phone] Jing Cadena MILK RECEIVER COUNTER HELP Unavailable [phone] Radha Lopez [facility] Unavailable [phone] Luis A Escobedo MD Unavailable [phone] Geri LozaC Unavailable [phone] Raina Patterson MILK RECEIVER HYPERION DEVELOPER Unavailable [phone] Encounter Details Date Type Department Care Team (Late st Contact Info) Description 01/26/2023 [facility] [address] [place] [phone] Henny Arguello RN Social History Tobacco Use [...] documented as of this encounter Care Teams Stroke Coordinator Relationship Specialty Start Date End Date Kaykay Duarte CLAIMS MANAGER [address] [place] [address] PCP - General 10/15/22 Roderick Morelos MD [address] [place] [address] Cardiovascular Disease 02/03/22 Magno Wood MD [address] [place] [address] 749075 Otolaryngology 02/21/22 Sophie Ocasio, Nick [address] [place] [address] 506075 Creasing Machine Operator Audiology 02/21/22 Henny Rosales, MILK RECEIVER HYPERION DEVELOPER [address] [place] [address] Assigned Heart and Vascular Provider 08/09/[address] [place] [address] 540415 Registered Dietitian Dietitian, Registered 09/02/22 Christiane Rodríguez MD [address] [place] [address] 396 [place], [place] 968265 Otolaryngology 11/12/22 Chely Fernandez PA-C [address] [place] [address] 407365 Assigned Surgical Provider 11/29/22 02/06/23 Jing Cadena APRN COUNTER HELP [address] [place] [address] 450 [place], [place] 662415 Clinical Nurse Specialist Anesthesiology 01/15/23 Radha Lopez, [facility] [address] [place] [address] 079795 Pharmacist Pharmacist 01/16/23 Luis A Escobedo MD [address] [place] [address] 195 [place], [place] 031435 Assigned Surgical Provider 02/07/23 04/15/23 Geri Loza PA-C [address] [place] [address] 681175 Assigned Surgical Provider 04/16/23 Raina Patterson APRN HYPERION DEVELOPER [address] [facility] [address] [place], [place] 627735 Nurse Practitioner Cardiovascular Disease 05/11/23 documented as of this encounter
--- OUTSIDE RECORDS SUMMARY | 2023-06-30 16:57 | XMS_ITS | Encounter Summary ---
Author Name Unknown Organization [facility] Address [address] [place] [address] 09796 Care Team Providers Care Cook Seafood Name Role Phone Roderick Morelos MD Unavailable [phone] Magno Wood MD Unavailable [phone] Sophie Ocasio AuD Unavailable [phone] Henny Rosales AUTOMATIC FOLDER SEAMER ACCESS REPRESENTATIVE Unavailable [phone] Unavailable Kaykay Duarte LEPIDOPTERIST Primary Care Provider Christiane Rodríguez MD Unavailable [phone] Jing Cadena AUTOMATIC FOLDER SEAMER STAFF SONOGRAPHER Unavailable [phone] Radha Lopez [facility] Unavailable [phone] Luis A Escobedo MD Unavailable [phone] Geri LozaC Unavailable [phone] Raina Patterson AUTOMATIC FOLDER SEAMER ACCESS REPRESENTATIVE Unavailable [phone] Encounter Details Date Type Department Care Team (Late st Contact Info) Description 02/17/2023 [facility] Medical Advice [facility] [address] 4th [place] [address] Henny Arguello RN Social History [...] documented as of this encounter Care Teams Cook Seafood Relationship Specialty [place] [address] [place] [address] PCP - General 10/15/22 Roderick Morelos MD [address] [place] 057365 Cardiovascular Disease 02/03/22 Magno Wood MD [address] [place] [address] 494035 Otolaryngology 02/21/22 Sophie Ocasio AuD 909 [place], [place] 739245 Gas Operator Audiology 02/21/22 Henny Rosales APRN ACCESS REPRESENTATIVE [address] [place] [phone] Assigned Heart and Vascular Provider 08/09/[address] 909 [place], [place] 734095 Registered Dietitian Dietitian, Registered 09/02/22 Christiane Rodríguez MD 420 [facility] 396 [place], [place] 500445 Otolaryngology 11/12/22 Jing Cadena APRN STAFF SONOGRAPHER 420 [facility] 450 [place] [address] Clinical Nurse Specialist Anesthesiology 01/15/23 Radha Lopez, [facility] [address] [place] [address] 508555 Pharmacist Pharmacist 01/16/23 Luis A Escobedo MD 420 [facility] 195 [place], [place] 937885 Assigned Surgical Provider 02/07/23 04/15/23 Geri Loza PA-C 9 [place], [place] 091035 Assigned Surgical Provider 04/16/23 Raina Patterson, GINA ACCESS REPRESENTATIVE [address] [place] 269405 Nurse Practitioner Cardiovascular Disease 05/11/23 documented as of this encounter
--- OUTSIDE RECORDS SUMMARY | 2023-06-30 16:57 | XMS_ITS | Encounter Summary ---
Author Name Unknown Organization [facility] Address [address] [place] [address] 9[address] Care Team Providers Care Manager Drug Name Role Phone Roderick Morelos MD Unavailable [phone] Magno Wood MD Unavailable [phone] Sophie Ocasio AuD Unavailable [phone] Henny Rosales COIN ROLLING MACHINE OPERATOR ELECTRICIAN Unavailable [phone] Unavailable Kaykay Duarte TRACE EVIDENCE TECHNICIAN Primary Care Provider [phone] Christiane Rodríguez MD Unavailable [phone] Jing Cadena COIN ROLLING MACHINE OPERATOR AGRICULTURE INTERN Unavailable [phone] Radha Lopez [facility] Unavailable [phone] Luis A Escobedo MD Unavailable [phone] Geri LozaC Unavailable [phone] Raina Patterson COIN ROLLING MACHINE OPERATOR ELECTRICIAN Unavailable [phone] Encounter Details Date Type Department Care Team (Late st Contact Info) Description 03/11/2023 [facility] Medical Advice Initial Department [facility] Social History Tobacco Use Types Packs/Day Years [...] documented as of this encounter Care Teams Manager Drug Relationship Specialty Start Date End Date Kaykay Duarte TRACE EVIDENCE TECHNICIAN [address] [place] [address] PCP - General 10/15/22 Roderick Morelos MD [address] [place] 167865 Cardiovascular Disease 02/03/22 Magno Wood MD [address] [place] [address] 508135 Otolaryngology 02/21/22 Sophie Ocasio AuD [address] [place] [address] 550065 Career Advisor Audiology 02/21/22 Henny Rosales APRN ELECTRICIAN [address] [place] [phone] Assigned Heart and Vascular Provider 08/09/[address] 909 [place] [address] Registered Dietitian Dietitian, Registered 09/02/22 Christiane Rodríguez MD 420 [facility] 396 [place] [address] Otolaryngology 11/12/22 Jing Cadena, COIN ROLLING MACHINE OPERATOR AGRICULTURE INTERN 420 [facility] 450 [place], [place] 807345 Clinical Nurse Specialist Anesthesiology 01/15/23 Radha Lopez, [facility] [address] [place] [address] 95629 Pharmacist Pharmacist 01/16/23 Luis A Escobedo MD 420 [facility] 195 [place] [address] Assigned Surgical Provider 02/07/23 04/15/23 Geri Loza PA-C 9 [place] [address] Assigned Surgical Provider 04/16/23 Raina Patterson, GINA ELECTRICIAN [address] [facility] [address] [place], [place] 448035 Nurse Practitioner Cardiovascular Disease 05/11/23 documented as of this encounter
--- OUTSIDE RECORDS SUMMARY | 2023-06-30 16:57 | XMS_ITS | Encounter Summary ---
Author Name Unknown Organization [facility] Address [address] [place] [address] 41265 Care Team Providers Care Protection Specialist Name Role Phone Roderick Morelos MD Unavailable [phone] Magno Wood MD Unavailable [phone] Sophie Ocasio AuD Unavailable [phone] Henny Rosales CLERICAL SPECIALIST SUPERVISOR POLE YARD Unavailable [phone] Unavailable Kaykay Duarte FABRICATION SPECIALIST Primary Care Provider Christiane Rodríguez MD Unavailable [phone] Chely FernandezC Unavailable [phone] Jing Cadena CLERICAL SPECIALIST JOB PUTTER UP AND TICKET PREPARER Unavailable [phone] Radha Lopez [facility] Unavailable [phone] Luis A Escobedo MD Unavailable [phone] Geri LozaC Unavailable [phone] Raina Patterson CLERICAL SPECIALIST SUPERVISOR POLE YARD Unavailable [phone] Encounter Details Date Type Department Care Team (Late st Contact Info) Description 01/14/2023 [facility] [address] [place] [address] Radha Dominguez, RN 420 [facility] 195 [place] [address] Social History Tobacco Use Types [...] documented as of this encounter Care Teams Protection Specialist Relationship Specialty [place] [address] [place] [address] PCP - General 10/15/22 Roderick Morelos MD [address] [place] [address] Cardiovascular Disease 02/03/22 Magno Wood MD 420 [facility] 396 [place], [place] 884385 Otolaryngology 02/21/22 Sophie Ocasio AuD 909 [place], [place] 355785 Marble Setter Helper Audiology 02/21/22 Henny Rosales, CLERICAL SPECIALIST SUPERVISOR POLE YARD [address] [place] [address] Assigned Heart and Vascular Provider 08/09/[address] [place] [address] 870125 Registered Dietitian Dietitian, Registered 09/02/22 Christiane Rodríguez MD [address] [place] [address] 396 [place], [place] 730325 Otolaryngology 11/12/22 Chely Fernandez PA-C [address] [place] [address] 491045 Assigned Surgical Provider 11/29/22 02/06/23 Jing Cadena CLERICAL SPECIALIST JOB PUTTER UP AND TICKET PREPARER [address] [place] [address] 450 [place] [address] Clinical Nurse Specialist Anesthesiology 01/15/23 Radha Lopez, [facility] [address] [place] [address] 407675 Pharmacist Pharmacist 01/16/23 Luis A Escobedo MD 420 [facility] 195 [place], [place] 286335 Assigned Surgical Provider 02/07/23 04/15/23 Geri Loza PA-C [address] [place] [address] 832825 Assigned Surgical Provider 04/16/23 Raina Patterson, CLERICAL SPECIALIST SUPERVISOR POLE YARD [address] [facility] [address] [place] 157825 Nurse Practitioner Cardiovascular Disease 05/11/23 documented as of this encounter
--- OUTSIDE RECORDS SUMMARY | 2023-06-30 16:57 | XMS_ITS | Encounter Summary ---
Author Name Unknown Organization [facility] Address [address] [place] [address] 94519 Care Team Providers Care Aerospace Products Sales Engineer Name Role Phone Roderick Morelos MD Unavailable [phone] Magno Wood MD Unavailable [phone] Sophie Ocasio AuD Unavailable [phone] Henny Rosales CASSANDRA ARCHITECT DISTRIBUTION SALES MANAGER Unavailable [phone] Unavailable Kaykay Duarte CONTINUOUS CONVEYOR SCREEN DRIER Primary Care Provider Christiane Rodríguez MD Unavailable Jing Cadena CASSANDRA ARCHITECT ELECTRICAL INSTRUMENT REPAIRER Unavailable Radha Lopez [facility] Unavailable Luis A Escobedo MD Unavailable Encounter Details Date Type Department Care Team (Late st Contact Info) Description 02/09/2023 Telephone [facility] [place] 594749 [facility] [address] 4th [place] [address] Radha Dominguez, RN 420 [facility] 195 [place] [address] Social History Tobacco Use Types [...] Contacts Type Contact Phone/Fax 02/09/2023 02:13 PM MAT LINKER Phone (Incoming) Billie Connolly (Self) [phone] (M) Reason for Call: Hotel recommendations What are your questions or concerns: pt would like to know if the hosp recommends any hotel or offers discounts Could we send this information to you in [facility] or would you prefer to receive a phone call?: Patient would prefer a phone call Okay to leave a detailed message?: Yes at Cell number on file: Telephone Information: LINKER documented in this encounter Plan of Treatment [...] documented as of this encounter Care Teams Aerospace Products Sales Engineer Relationship Specialty Start Date End Date Kaykay Duarte CONTINUOUS CONVEYOR SCREEN DRIER [address] [place] [address] PCP - General 10/15/22 Roderick Morelos MD [address] [place] [address] Cardiovascular Disease 02/03/22 Magno Wood MD 420 [facility] 396 [place], [place] 187845 Otolaryngology 02/21/22 Sophie Ocasio AuD 909 [place], [place] 416785 E Commerce Architect Audiology 02/21/22 Henny Rosales, CASSANDRA ARCHITECT DISTRIBUTION SALES MANAGER [address] [place] [address] Assigned Heart and Vascular Provider 08/09/[address] [place] [address] 341955 Registered Dietitian Dietitian, Registered 09/02/22 Christiane Rodríguez MD 420 [facility] 396 [place], [place] 592675 Otolaryngology 11/12/22 Jing Cadena, CASSANDRA ARCHITECT ELECTRICAL INSTRUMENT REPAIRER 420 [facility] 450 [place], [place] 768855 Clinical Nurse Specialist Anesthesiology 01/15/23 Radha Lopez [facility] 909 [place], [place] 504825 Pharmacist Pharmacist 01/16/23 Luis A Escobedo MD 420 [facility] 195 [place] [address] Assigned Surgical Provider 02/07/23 04/15/23 documented as of this encounter
--- OUTSIDE RECORDS SUMMARY | 2023-06-30 16:57 | XMS_ITS | Encounter Summary ---
Author Name Unknown Organization [facility] Address [address] [place] [address] 71278 Care Team Providers Care Community Service Manager Name Role Phone Roderick Morelos MD Unavailable [phone] Magno Wood MD Unavailable [phone] Sophie Ocasio AuD Unavailable [phone] Henny Rosales EMAIL MARKETING COORDINATOR OUTDOOR ADVENTURE GUIDES Unavailable [phone] Unavailable Kaykay Duarte ROPEMAN Primary Care Provider Christiane Rodríguez MD Unavailable [phone] Jing Cadena EMAIL MARKETING COORDINATOR HERD TESTER Unavailable [phone] Radha Lopez [facility] Unavailable [phone] Luis A Escobedo MD Unavailable [phone] Geri LozaC Unavailable [phone] Raina Patterson EMAIL MARKETING COORDINATOR OUTDOOR ADVENTURE GUIDES Unavailable [phone] Encounter Details Date Type Department Care Team (Late st Contact Info) Description 02/17/2023 [facility] Medical Advice [facility] [address] 4th [place] [address] Henny Arguello RN Social History [...] documented as of this encounter Care Teams Community Service Manager Relationship Specialty [place] [address] [place] [address] PCP - General 10/15/22 Roderick Morelos MD [address] [place] 660105 Cardiovascular Disease 02/03/22 Magno Wood MD [address] [place] [address] 471065 Otolaryngology 02/21/22 Sophie Ocasio AuD 909 [place], [place] 093835 Meat Cutting Teacher Audiology 02/21/22 Henny Rosales APRN OUTDOOR ADVENTURE GUIDES [address] [place] [phone] Assigned Heart and Vascular Provider 08/09/[address]09 [place], [place] 054385 Registered Dietitian Dietitian, Registered 09/02/22 Christiane Rodríguez MD 420 [facility] 396 [place], [place] 410565 Otolaryngology 11/12/22 Jing Cadena APRN HERD TESTER 420 [facility] 450 [place] [address] Clinical Nurse Specialist Anesthesiology 01/15/23 Radha Lopez, [facility] [address] [place] [address] 339415 Pharmacist Pharmacist 01/16/23 Luis A Escobedo MD 420 [facility] 195 [place], [place] 319885 Assigned Surgical Provider 02/07/23 04/15/23 Geri Loza PA-C 9 [place], [place] 322845 Assigned Surgical Provider 04/16/23 Raina Patterson, GINA OUTDOOR ADVENTURE GUIDES [address] [address] [place] 421875 Nurse Practitioner Cardiovascular Disease 05/11/23 documented as of this encounter
--- OUTSIDE RECORDS SUMMARY | 2023-06-30 16:57 | XMS_ITS | Encounter Summary ---
Author Name Unknown Organization [facility] Address [address] [place] [address] 99981 Care Team Providers Care Student Services Coordinator Name Role Phone Roderick Morelos MD Unavailable [phone] Magno Wood MD Unavailable [phone] Sophie Ocasio AuD Unavailable [phone] Henny Rosales IS PROJECT MANAGER REFRIGERATION INSULATOR Unavailable [phone] Unavailable Kaykay Duarte ANDROID SOFTWARE ENGINEER Primary Care Provider Christiane Rodríguez MD Unavailable [phone] Chely FernandezC Unavailable [phone] Jing Cadena IS PROJECT MANAGER WELDING MANAGER Unavailable Radha Lopez [facility] Unavailable [phone] Luis A Escobedo MD Unavailable [phone] Geri LozaC Unavailable [phone] Raina Patterson IS PROJECT MANAGER REFRIGERATION INSULATOR Unavailable [phone] Encounter Details Date Type Department Care Team (Late st Contact Info) Description 01/21/2023 [facility] [address] [place] [address] Radha Dominguez, RN 420 [facility] 195 [place] [address] Social History Tobacco Use Types [...] documented as of this encounter Care Teams Student Services Coordinator Relationship Specialty [place] [address] [place] [address] PCP - General 10/15/22 Roderick Morelos MD [address] [place] [address] Cardiovascular Disease 02/03/22 Magno Wood MD 420 [facility] 396 [place], [place] 666145 Otolaryngology 02/21/22 Sophie Ocasio AuD 909 [place], [place] 028795 Ict Development Manager Audiology 02/21/22 Henny Rosales, IS PROJECT MANAGER REFRIGERATION INSULATOR [address] [place] [phone] Assigned Heart and Vascular Provider 08/09/[address] [place] [address] 829265 Registered Dietitian Dietitian, Registered 09/02/22 Christiane Rodríguez MD [address] [place] [address] 396 [place], [place] 110145 Otolaryngology 11/12/22 Chely Fernandez PA-C [address] [place] [address] 641995 Assigned Surgical Provider 11/29/22 02/06/23 Jing Cadena IS PROJECT MANAGER WELDING MANAGER [address] [place] [address] 450 [place] [address] Clinical Nurse Specialist Anesthesiology 01/15/23 Radha Lopez, [facility] [address] [place] [address] 305025 Pharmacist Pharmacist 01/16/23 Luis A Escobedo MD 420 [facility] 195 [place], [place] 784455 Assigned Surgical Provider 02/07/23 04/15/23 Geri Loza PA-C [address] [place] [address] 509155 Assigned Surgical Provider 04/16/23 Raina Patterson, IS PROJECT MANAGER REFRIGERATION INSULATOR [address] [facility] [address] [place] 892895 Nurse Practitioner Cardiovascular Disease 05/11/23 documented as of this encounter
--- OUTSIDE RECORDS SUMMARY | 2023-06-30 16:57 | XMS_ITS | Encounter Summary ---
Author Name Unknown Organization [place] Address [address] [place] [address] 58191 Care Team Providers Care Jute Bag Clipper Name Role Phone Roderick Morelos MD Unavailable [phone] Magno Wood MD Unavailable [phone] Sophie Ocasio AuD Unavailable [phone] Henny Rosales FORENSIC SOCIAL WORKER SAS STATISTICAL PROGRAMMER Unavailable +[phone] Unavailable Kaykay Duarte CAKE PRESS OPERATOR Primary Care Provider Christiane Rodríguez MD Unavailable [phone] Chely FernandezC Unavailable [phone] Jing Cadena FORENSIC SOCIAL WORKER SPOTTER DRIVER Unavailable Radha Lopez [facility] Unavailable Luis A Escobedo MD Unavailable [phone] Geri LozaC Unavailable [phone] Raina Patterson FORENSIC SOCIAL WORKER SAS STATISTICAL PROGRAMMER Unavailable [phone] Encounter Details Date Type Department Care Team (Late st Contact Info) Description 01/15/[address] [facility] [address] [place] [address] Geri Loza PA-C 909 [place], [place] 665625 Social History Tobacco Use Types Packs/Day Years [...] Lopez, PharmD, BCACP Medication Therapy Management Pharmacist [facility] * Telephone Encounter - [...] documented as of this encounter Care Teams Jute Bag Clipper Relationship Specialty [place] [address] [place] [address] PCP - General 10/15/22 Roderick Morelos MD [address] [place] [address] Cardiovascular Disease 02/03/22 Magno Wood MD [address] [place] [address] 839305 Otolaryngology 02/21/22 Sophie Ocasio AuD [address] [place] [address] 228655 Barrel Leveler Audiology 02/21/22 Henny Rosales APRN SAS STATISTICAL PROGRAMMER [address] [place] [address]089[address]108 Assigned Heart and Vascular Provider 08/09/[address] [place] [address] 448265 Registered Dietitian Dietitian, Registered 09/02/22 Christiane Rodríguez MD [address] [place] [address] 251545 Otolaryngology 11/12/22 Chely Fernandez PA-C [address] [place] [address] 79510 Assigned Surgical Provider 11/29/22 02/06/23 Jing Cadena APRN SPOTTER DRIVER 420 [facility] 450 [place] [address] Clinical Nurse Specialist Anesthesiology 01/15/23 Radha Lopez, [facility] 909 [place] [address] Pharmacist Pharmacist 01/16/23 Luis A Escobedo MD 420 [facility] 195 [place], [place] 167935 Assigned Surgical Provider 02/07/23 04/15/23 Geri Loza PA-C [address] [place] [address] 03983 Assigned Surgical Provider 04/16/23 Raina Patterson APRN SAS STATISTICAL PROGRAMMER [address] [place] 320465 Nurse Practitioner Cardiovascular Disease 05/11/23 documented as of this encounter
--- OUTSIDE RECORDS SUMMARY | 2023-06-30 16:57 | XMS_ITS | Encounter Summary ---
Author Name Unknown Organization [place] [facility] Address [address] [place] [address] 7[address] Care Team Providers Care Rural Health Consultant Name Role Phone Roderick Morelos MD Unavailable [phone] Magno Wood MD Unavailable [phone] Sophie Ocasio AuD Unavailable [phone] Henny Rosales SKIDDER RUNNER PAPER COATING MACHINE OPERATOR Unavailable [phone] Unavailable Kaykay Duarte BLIND SLAT STAPLING MACHINE OPERATOR Primary Care Provider Christiane Rodríguez MD Unavailable [phone] Jing Cadena SKIDDER RUNNER SLATER APPRENTICE Unavailable [phone] Radha Lopez [facility] Unavailable [phone] Luis A Escobedo MD Unavailable [phone] Geri LozaC Unavailable [phone] Raina Patterson SKIDDER RUNNER PAPER COATING MACHINE OPERATOR Unavailable [phone] Encounter Details Date Type Department Care Team (Late st Contact Info) Description 03/11/2023 MyC Medical Advice Initial Department [facility] [place] Social History Tobacco Use Types Packs/Day Years [...] documented as of this encounter Care Teams Rural Health Consultant Relationship Specialty Start Date End Date Kaykay Duarte BLIND SLAT STAPLING MACHINE OPERATOR [address] [place] [address] PCP - General 10/15/22 Roderick Morelos MD [address] [place] 432415 Cardiovascular Disease 02/03/22 Magno Wood MD [address] [place] [address] 331575 Otolaryngology 02/21/22 Sophie Ocasio AuD [address] [place] [address] 327655 Haulage Engine Operator Audiology 02/21/22 Henny Rosales APRN PAPER COATING MACHINE OPERATOR [address] [place] [phone] Assigned Heart and Vascular Provider 08/09/[address] 909 [place] [address] Registered Dietitian Dietitian, Registered 09/02/22 Christiane Rodríguez MD 420 [facility] 396 [place] [address] Otolaryngology 11/12/22 Jing Cadena, SKIDDER RUNNER SLATER APPRENTICE 420 [facility] 450 [place], [place] 000065 Clinical Nurse Specialist Anesthesiology 01/15/23 Radha Lopez, [facility] [address] [place] [address] Pharmacist Pharmacist 01/16/23 Luis A Escobedo MD 420 [facility] 195 [place] [address] Assigned Surgical Provider 02/07/23 04/15/23 Geri Loza PA-C 9 [place] [address] Assigned Surgical Provider 04/16/23 Raina Patterson, GINA PAPER COATING MACHINE OPERATOR [address] [facility] [address] [place], [place] 203525 Nurse Practitioner Cardiovascular Disease 05/11/23 documented as of this encounter
--- OUTSIDE RECORDS SUMMARY | 2023-06-30 16:57 | XMS_ITS | Encounter Summary ---
Author Name Unknown Organization [facility] Address [address] [place] [address] 84521 Care Team Providers Care Bulk Plant Manager Name Role Phone Roderick Morelos MD Unavailable [phone] Magno Wood MD Unavailable [phone] Sophie Ocasio AuD Unavailable [phone] Henny Rosales MANAGEMENT TRAINEE PROGRAM STORES COURT ATTENDANT Unavailable [phone] Unavailable Kaykay Duarte RETORT FORKER Primary Care Provider Christiane Rodríguez MD Unavailable [phone] Jing Cadena MANAGEMENT TRAINEE PROGRAM STORES JOB SETTER HONING Unavailable [phone] Radha Lopez [facility] Unavailable [phone] Luis A Escobedo MD Unavailable [phone] Geri LozaC Unavailable [phone] Raina Patterson MANAGEMENT TRAINEE PROGRAM STORES COURT ATTENDANT Unavailable [phone] Encounter Details Date Type Department Care Team (Late st Contact Info) Description 02/18/2023 [facility] Medical [facility] Pre[facility] [address] 5th [place] [address] Nikky Babb, RN Social History [...] as of this encounter Care Teams Bulk Plant Manager Relationship Specialty Start Date End Date Kaykay Duarte RETORT FORKER [address] [place] [address] PCP - General 10/15/22 Roderick Morelos MD [address] [place] [address] Cardiovascular Disease 02/03/22 Magno Wood MD [address] [place] [address] 437835 Otolaryngology 02/21/22 Sophie Ocasio, Nick 909 [place], [place] 787285 Packing House Supervisor Audiology 02/21/[address] ATTENDANT [address] [place] [phone] Assigned Heart and Vascular Provider 08/09/[address] [place] [address] 694195 Registered Dietitian Dietitian, Registered 09/02/22 Christiane Rodríguez MD [address] [place] [place] [address] 396 [place], [place] 309755 Otolaryngology 11/12/22 Jing Cadena APRN JOB SETTER HONING [address] [place] [place] [address] 450 [place], [place] 261335 Clinical Nurse Specialist Anesthesiology 01/15/23 Radha Lopez, [facility] [address] [place] [address] 015645 Pharmacist Pharmacist 01/16/23 Luis A Escobedo MD [address] [place] [place] [address] 195 [place], [place] 100355 Assigned Surgical Provider 02/07/23 04/15/23 Geri Loza PA-C [address] [place] [address] 858375 Assigned Surgical Provider 04/16/23 Raina Patterson, GINA COURT ATTENDANT [address] [place] 286725 Nurse Practitioner Cardiovascular Disease 05/11/23 documented as of this encounter
--- OUTSIDE RECORDS SUMMARY | 2023-06-30 16:57 | XMS_ITS | Encounter Summary ---
Author Name Unknown Organization [facility] Address [address] [place] [address] 0[address]44 Care Team Providers Care Parts Washer Name Role Phone Roderick Morelos MD Unavailable [phone] Magno Wood MD Unavailable [phone] Sophie Ocasio AuD Unavailable [phone] Henny Rosales SHEETROCK APPLICATOR EGG PROCESSOR Unavailable [phone] Unavailable Kaykay Duarte HOUSE OFFICER Primary Care Provider [phone] Christiane Rodríguez MD Unavailable [phone] Chely eFrnandezC Unavailable [phone] Jing Cadena SHEETROCK APPLICATOR DROSS PULLER Unavailable Radha Lopez [facility] Unavailable [phone] Luis A Escobedo MD Unavailable [phone] Geri LozaC Unavailable [phone] Raina Patterson SHEETROCK APPLICATOR EGG PROCESSOR Unavailable [phone] Encounter Details Date Type Department Care Team (Late st Contact Info) Description 02/06/2023 [facility] [address] [place] [phone] [facility] [place] Social History Tobacco Use Types Packs/Day Years [...] as of this encounter Care Teams Parts Washer Relationship Specialty [place] [address] [place] [address] PCP - General 10/15/22 Roderick Morelos MD [address] [place] [address] Cardiovascular Disease 02/03/22 Magno Wood MD [address] [place] [address] 012185 Otolaryngology 02/21/22 Sophie Ocasio, Nick [address] [place] [address] 263305 Package Clerk Audiology 02/21/22 Henny Rosales APRN EGG PROCESSOR [address] [place] [address]57102108 Assigned Heart and Vascular Provider 08/09/[address] [place] [address] 652195 Registered Dietitian Dietitian, Registered 09/02/22 Christiane Rodríguez MD [address] [place] [address] 396 [place], [place] 477675 Otolaryngology 11/12/22 Chely Fernandez PA-C [address] [place] [address] 523365 Assigned Surgical Provider 11/29/22 02/06/23 Jing Cadena APRN DROSS PULLER [address] [place] [address] 450 [place], [place] 931085 Clinical Nurse Specialist Anesthesiology 01/15/23 Radha Lopez, [facility] [address] [place] [address] 287435 Pharmacist Pharmacist 01/16/23 Luis A Escobedo MD [address] [place] [address] 195 [place], [place] 755505 Assigned Surgical Provider 02/07/23 04/15/23 Geri Loza PA-C [address] [place] [address] 559555 Assigned Surgical Provider 04/16/23 Raina Patterson APRN EGG PROCESSOR [address] [facility] [address] [place], [place] 444405 Nurse Practitioner Cardiovascular Disease 05/11/23 documented as of this encounter
--- OUTSIDE RECORDS SUMMARY | 2023-06-30 16:57 | XMS_ITS | Encounter Summary ---
Author Name Unknown Organization [facility] Address [address] [place] [address] 85349 Care Team Providers Care Appian Developer Name Role Phone Roderick Morelos MD Unavailable [phone] Magno Wood MD Unavailable [phone] Sophie Ocasio AuD Unavailable [phone] Henny Rosales ANODIZE MACHINE OPERATOR HYDROGEN CELL TENDER Unavailable [phone] Unavailable Kaykay Duarte SHIRRER Primary Care Provider [phone] Christiane Rodríguez MD Unavailable [phone] Chely FernandezC Unavailable [phone] Jing Cadena ANODIZE MACHINE OPERATOR PLANT MAINTENANCE TECHNICIAN Unavailable [phone] Radha Lopez [facility] Unavailable [phone] Luis A Escobedo MD Unavailable [phone] Geri LozaC Unavailable [phone] Raina Patterson ANODIZE MACHINE OPERATOR HYDROGEN CELL TENDER Unavailable [phone] Reason for Visit * Reason Onset Date Comments Call Back 01/15/2023 See note. Encounter Details Date Type Department Care Team (Late st Contact Info) Description 01/15/2023 Telephone [facility] Surgery [place] [address] [facility] [address] 4th [place] [address] Luis A Escobedo MD 420 [facility] 195 [place], [place] 184805 Call Back (See note./) Social History Tobacco [...] questions or updates. Please contact Daisy Huynh, admissions clinician, if clinic appt slots are not available. Henny, The patient has been informed that you will contact them about the preop class. Thank you! Summer, RN Radha Dominguez, MS, oil speculator Weight Management Nurse Coordinator MyChart messages to Surgery Clinic Wls Nurses - Contact Center Nurse Line and Clinic [phone] documented in this encounter Plan of Treatment [...] documented as of this encounter Care Teams Appian Developer Relationship Specialty Start Date End Date Kaykay Duarte, SHIRRER [address] [place] [address] PCP - General 10/15/22 Roderick Morelos MD [address] [place], [place] 812565 Cardiovascular Disease 02/03/22 Magno Wood MD [address] [place] [address] 266865 Otolaryngology 02/21/22 Sophie Ocasio AuD [address] [place] [address] 813095 Transmission Operator Audiology 02/21/22 Henny Rosales, ANODIZE MACHINE OPERATOR HYDROGEN CELL TENDER [address] [place] [phone] Assigned Heart and Vascular Provider 08/09/[address] [place] [address] 668[address] Registered Dietitian Dietitian, Registered 09/02/22 Christiane Rodríguez MD 420 [facility] 396 [place], [place] 469535 Otolaryngology 11/12/22 Chely Fernandez PA-C 909 [place], [place] 956645 Assigned Surgical Provider 11/29/22 02/06/23 Jing Cadena APRN PLANT MAINTENANCE TECHNICIAN 420 [facility] 450 [place], [place] 122035 Clinical Nurse Specialist Anesthesiology 01/15/23 Radha Lopez, [facility] 909 [place], [place] 299155 Pharmacist Pharmacist 01/16/23 Luis A Escobedo MD 420 [facility] 195 [place], [place] 054085 Assigned Surgical Provider 02/07/23 04/15/23 Geri Loza PA-C 909 [place], [place] 333375 Assigned Surgical Provider 04/16/23 Raina Patterson, GINA HYDROGEN CELL TENDER [address] [place] [address] [place] 691825 Nurse Practitioner Cardiovascular Disease 05/11/23 documented as of this encounter
--- OUTSIDE RECORDS SUMMARY | 2023-06-30 16:57 | XMS_ITS | Encounter Summary ---
Author Name Unknown Organization [facility] Address [address] [place] [address] 12924 Care Team Providers Care Clinical Nursing Instructor Name Role Phone Roderick Morelos MD Unavailable [phone] Magno Wood MD Unavailable [phone] Sophie Ocasio AuD Unavailable [phone] Henny Rosales COMMUNICATIONS ADVISOR PROJECTION CAMERA OPERATOR Unavailable [phone] Unavailable Kaykay Duarte LOAD TEST MECHANIC Primary Care Provider Christiane Rodríguez MD Unavailable [phone] Chely FernandezC Unavailable [phone] Jing Cadena COMMUNICATIONS ADVISOR RN ACCESS Unavailable [phone] Radha Lopez [facility] Unavailable [phone] Luis A Escobedo MD Unavailable [phone] Geri LozaC Unavailable [phone] Raina Patterson COMMUNICATIONS ADVISOR PROJECTION CAMERA OPERATOR Unavailable [phone] Encounter Details Date Type Department Care Team (Late st Contact Info) Description 01/14/2023 [facility] [address] [place] [address] Radha Dominguez, RN 420 [facility] 195 [place] [address] Social History Tobacco Use Types [...] documented as of this encounter Care Teams Clinical Nursing Instructor Relationship Specialty [place] [address] [place] [address] PCP - General 10/15/22 Roderick Morelos MD [address] [place] [address] Cardiovascular Disease 02/03/22 Magno Wood MD 420 [facility] 396 [place], [place] 709415 Otolaryngology 02/21/22 Sophie Ocasio AuD 909 [place], [place] 902505 Automobile Repair Service Estimator Audiology 02/21/22 Henny Rosales, COMMUNICATIONS ADVISOR PROJECTION CAMERA OPERATOR [address] [place] [address] Assigned Heart and Vascular Provider 08/09/[address] [place] [address] 118775 Registered Dietitian Dietitian, Registered 09/02/22 Christiane Rodríguez MD [address] [place] [address] 396 [place], [place] 851555 Otolaryngology 11/12/22 Chely Fernandez PA-C [address] [place] [address] 234445 Assigned Surgical Provider 11/29/22 02/06/23 Jing Cadena COMMUNICATIONS ADVISOR RN ACCESS [address] [place] [address] 450 [place] [address] Clinical Nurse Specialist Anesthesiology 01/15/23 Radha Lopez, [facility] [address] [place] [address] 518285 Pharmacist Pharmacist 01/16/23 Luis A Escobedo MD 420 [facility] 195 [place], [place] 599815 Assigned Surgical Provider 02/07/23 04/15/23 Geri Loza PA-C [address] [place] [address] 570125 Assigned Surgical Provider 04/16/23 Raina Patterson, COMMUNICATIONS ADVISOR PROJECTION CAMERA OPERATOR [address] [facility] [address] [place] 148045 Nurse Practitioner Cardiovascular Disease 05/11/23 documented as of this encounter
--- OUTSIDE RECORDS SUMMARY | 2023-06-30 16:57 | XMS_ITS | Encounter Summary ---
Author Name Unknown Organization [facility] Address [address] [place] [address] 46839 Care Team Providers Care Administrative Coordinator Name Role Phone Roderick Morelos MD Unavailable [phone] Magno Wood MD Unavailable [phone] Sophie Ocasio AuD Unavailable [phone] Henny Rosales SENIOR SOURCING MANAGER DELIVERY HELPER Unavailable [phone] Unavailable Kaykay Duarte HOUSEKEEPING COORDINATOR Primary Care Provider Christiane Rodríguez MD Unavailable [phone] Jing Cadena SENIOR SOURCING MANAGER MANAGER OF MERCHANDISING Unavailable Radha Lopez [facility] Unavailable [phone] Luis A Escobedo MD Unavailable [phone] Encounter Details Date Type Department Care Team [...] documented as of this encounter Care Teams Administrative Coordinator Relationship Specialty Start Date End Date Kaykay Duarte, HOUSEKEEPING COORDINATOR [address] [place] [address] PCP - General 10/15/22 Roderick Morelos MD [address] [place], [place] 138485 Cardiovascular Disease 02/03/22 Magno Wood MD [address] [place] [address] 396 [place], [place] 741375 Otolaryngology 02/21/22 Sophie Ocasio AuD [address] [place] [address] 601805 Shipping Track Supervisor Audiology 02/21/22 Henny Rosales, SENIOR SOURCING MANAGER DELIVERY HELPER [address] [place] [phone] Assigned Heart and Vascular Provider 08/09/[address] 909 [place] [address] Registered Dietitian Dietitian, Registered 09/02/22 Christiane Rodríguez MD 420 [facility] 396 [place], [place] 500005 Otolaryngology 11/12/22 Jing Cadena, SENIOR SOURCING MANAGER MANAGER OF MERCHANDISING 420 [facility] 450 [place] [address] Clinical Nurse Specialist Anesthesiology 01/15/23 Radha Lopez, [facility] 909 [place] [address] Pharmacist Pharmacist 01/16/23 Luis A Escobedo MD 420 [facility] 195 [place], [place] 590365 Assigned Surgical Provider 02/07/23 04/15/23 documented as of this encounter
--- OUTSIDE RECORDS SUMMARY | 2023-06-30 16:57 | XMS_ITS | Encounter Summary ---
Author Name Unknown Organization [facility] Address [address] [place] [address] 8[address]55 Care Team Providers Care Cut To Length Operator Name Role Phone Roderick Morelos MD Unavailable [phone] Magno Wood MD Unavailable [phone] Sophie Ocasio AuD Unavailable [phone] Henny Rosales VP SOFTWARE SUPPORT INSPECTOR PACKAGER Unavailable [phone] Unavailable Kaykay Duarte PROBLEM MANAGER Primary Care Provider Christiane Rodríguez MD Unavailable [phone] Jing Cadena VP SOFTWARE SUPPORT CNC OPERATOR Unavailable Radha Lopez [facility] Unavailable [phone] Luis A Escobedo MD Unavailable [phone] Geri LozaC Unavailable [phone] Raina Patterson VP SOFTWARE SUPPORT INSPECTOR PACKAGER Unavailable [phone] Encounter Details Date Type Department Care Team (Late st Contact Info) Description 03/21/2023 [facility] Advice [facility] [place] [address] [facility] 4th [place] [address] Luis A Escobedo MD [address] [place] [address] 195 [place] [address] Social History Tobacco Use Types Packs/Day Years [...] documented as of this encounter Care Teams Cut To Length Operator Relationship Specialty Start Date End Date Kaykay Duarte, PROBLEM MANAGER [address] [facility] [address] [facility] [place] [place] 137237 PCP - General 10/15/22 Roderick Morelos MD [address] [place], [place] 569155 Cardiovascular Disease 02/03/22 Magno Wood MD 420 [facility] 396 [place], [place] 293835 Otolaryngology 02/21/22 Sophie Ocasio AuD 909 [place], [place] 888465 Optical Instrument Specialist Audiology 02/21/22 Henny Rosales APRN INSPECTOR PACKAGER [address] [place] [address] Assigned Heart and Vascular Provider 08/09/[address] 909 [place] [address] Registered Dietitian Dietitian, Registered 09/02/22 Christiane Rodríguez MD 420 [facility] 396 [place], [place] 558935 Otolaryngology 11/12/22 Jing Cadena APRN CNC OPERATOR 420 [facility] 450 [place], [place] 369925 Clinical Nurse Specialist Anesthesiology 01/15/23 Radha Lopez, [facility] 909 [place], [place] 973945 Pharmacist Pharmacist 01/16/23 Luis A Escobedo MD 420 [facility] 195 [place] [address] Assigned Surgical Provider 02/07/23 04/15/23 Geri Loza PA-C 909 [place] [address] Assigned Surgical Provider 04/16/23 Raina Patterson APRN INSPECTOR PACKAGER [address] [address] [place] [address] Nurse Practitioner Cardiovascular Disease 05/11/23 documented as of this encounter
--- OUTSIDE RECORDS SUMMARY | 2023-06-30 16:58 | XMS_ITS | Encounter Summary ---
Author Name Unknown Organization [facility] Address [address] [place] [address] 40978 Care Team Providers Care Rn Acls Name Role Phone Roderick Morelos MD Unavailable [phone] Magno Wood MD Unavailable [phone] Sophie Ocasio AuD Unavailable [phone] Henny Rosales HIGH SCHOOL BUSINESS TEACHER LIGHTER CAPTAIN Unavailable +[phone] Unavailable Kaykay Duarte RN [facility] Primary Care Provider Christiane Rodríguez MD Unavailable +[phone] Chely FernandezC Unavailable +[phone] Jing Cdaena HIGH SCHOOL BUSINESS TEACHER APPLICATION SOFTWARE ENGINEER Unavailable Radha Lopez [facility] Unavailable [phone] Luis A Escobedo MD Unavailable +[phone] Geri LozaC Unavailable [phone] Raina Patterson HIGH SCHOOL BUSINESS TEACHER LIGHTER CAPTAIN Unavailable +[phone] Encounter Details Date Type Department Care Team (Late st Contact Info) Description 01/09/2023 [facility] [address] [place] [address] Radha Dominguez, RN [address] [facility] 195 [place] [address] Social History Tobacco Use Types [...] as of this encounter Care Teams Rn Acls Relationship Specialty [place] [address] [place] [address] PCP - General 10/15/22 Roderick Morelos MD [address] [place] [address] Cardiovascular Disease 02/03/22 Magno Wood MD 420 [facility] 396 [place], [place] 598485 Otolaryngology 02/21/22 Sophie Ocasio AuD 909 [place], [place] 342185 Internetworking Technician Audiology 02/21/22 Henny Rosales, HIGH SCHOOL BUSINESS TEACHER LIGHTER CAPTAIN [address] [place] [address] Assigned Heart and Vascular Provider 08/09/[address] [place] [address] 897815 Registered Dietitian Dietitian, Registered 09/02/22 Christiane Rordíguez MD [address] [place] [address] 396 [place], [place] 338115 Otolaryngology 11/12/22 Chely Fernandez PA-C [address] [place] [address] 398325 Assigned Surgical Provider 11/29/22 02/06/23 Jing Cadena HIGH SCHOOL BUSINESS TEACHER APPLICATION SOFTWARE ENGINEER [address] [place] [address] 450 [place] [address] Clinical Nurse Specialist Anesthesiology 01/15/23 Radha Lopez, [facility] [address] [place] [address] 077325 Pharmacist Pharmacist 01/16/23 Luis A Escobedo MD [address] [facility] 195 [place], [place] 147915 Assigned Surgical Provider 02/07/23 04/15/23 Geri Loza PA-C [address] [place] [address] 028905 Assigned Surgical Provider 04/16/23 Raina Patterson, HIGH SCHOOL BUSINESS TEACHER LIGHTER CAPTAIN [address] [facility] [address] [place] 016345 Nurse Practitioner Cardiovascular Disease 05/11/23 documented as of this encounter
--- OUTSIDE RECORDS SUMMARY | 2023-06-30 16:58 | XMS_ITS | Encounter Summary ---
Author Name Unknown Organization [place] Address [address] [place] [address] 53683 Care Team Providers Care Public Relations Officer Name Role Phone Roderick Morelos MD Unavailable [phone] Magno Wood MD Unavailable [phone] Sophie Ocasio AuD Unavailable +[phone] Henny Rosales INTERNAL AUDIT CONSULTANT RENTAL COUNTER CLERK Unavailable +[phone] Unavailable Kaykay Duarte RESOLUTION ANALYST Primary Care Provider Christiane Rodríguez MD Unavailable [phone] Cehly FernandezC Unavailable +[phone] Jing Cadena INTERNAL AUDIT CONSULTANT SURGICAL SERVICES ASST Unavailable +[phone] Radha Lopez [facility] Unavailable +[phone] Luis A Escobedo MD Unavailable +[phone] Geri LozaC Unavailable +[phone] Raina Patterson INTERNAL AUDIT CONSULTANT RENTAL COUNTER CLERK Unavailable +[phone] Encounter Details Date Type Department Care Team (Late st Contact Info) Description 12/04/2022 [facility] [address] [place] [address] Kang Griffiths Social History Tobacco [...] documented as of this encounter Care Teams Public Relations Officer Relationship Specialty [place] [address] [facility] [address] PCP - General 10/15/22 Roderick Morelos MD [address] [place] [address] Cardiovascular Disease 02/03/22 Magno Wood MD 420 [facility] 396 [place], [place] 864455 Otolaryngology 02/21/22 Sophie Ocasio AuD 909 [place], [place] 528495 Certified Professional Ergonomist Audiology 02/21/22 Henny Rosales, INTERNAL AUDIT CONSULTANT RENTAL COUNTER CLERK [address] [place] [address] Assigned Heart and Vascular Provider 08/09/[address] [place] [address] 109735 Registered Dietitian Dietitian, Registered 09/02/22 Christiane Rodríguez MD [address] [place] [address] 396 [place], [place] 751565 Otolaryngology 11/12/22 Chely Fernandez PA-C [address] [place] [address] 062815 Assigned Surgical Provider 11/29/22 02/06/23 Jing Cadena APRN SURGICAL SERVICES ASST [address] [place] [address] 450 [place] [address] Clinical Nurse Specialist Anesthesiology 01/15/23 Radha Lopez, [facility] [address] [place] [address] 856685 Pharmacist Pharmacist 01/16/23 Luis A Escobedo MD 420 [facility] 195 [place], [place] 886615 Assigned Surgical Provider 02/07/23 04/15/23 Geri Loza PA-C [address] [place] [address] 059485 Assigned Surgical Provider 04/16/23 Raina Patterson, INTERNAL AUDIT CONSULTANT RENTAL COUNTER CLERK [address] [place] 151405 Nurse Practitioner Cardiovascular Disease 05/11/23 documented as of this encounter
--- OUTSIDE RECORDS SUMMARY | 2023-06-30 16:58 | XMS_ITS | Encounter Summary ---
Author Name Unknown Organization [facility] Address [address] [place] [address] 27175 Care Team Providers Care Frame Opener Name Role Phone Roderick Morelos MD Unavailable [phone] Magno Wood MD Unavailable [phone] Sophie Ocasio AuD Unavailable [phone] Henny Rosales FOUNDER / CEO CRAFT RECRUITER Unavailable [phone] Unavailable Kaykay Duarte ENERGY ADVISOR Primary Care Provider [phone] Christiane Rodríguez MD Unavailable +[phone] Luis A Escobedo MD Unavailable +[phone] Chely FernandezC Unavailable +[phone] Jing Cadena APRN VETERINARY MEDICAL OFFICER Unavailable +[phone] Radha Lopez [facility] Unavailable +[phone] Luis A Escobedo MD Unavailable +[phone] Geri LozaC Unavailable [phone] Raina Patterson APRN CRAFT RECRUITER Unavailable +[phone] Encounter Details Date Type Department Care Team (Late st Contact Info) Description 11/07/2022 My[facility] Medical Advice [facility] [place] 909 [facility] 4th [place] [phone] Geri Loza PA-C [address] [place] [address] [phone] Social History Tobacco Use Types Packs/Day Years [...] as of this encounter Care Teams Frame Opener Relationship Specialty Start Date End Date Kaykay Duarte ENERGY ADVISOR [address] [place] [address] PCP - General 10/15/22 Roderick Morelos MD [address] [place] 214005 Cardiovascular Disease 02/03/22 Magno Wood MD 420 [facility] 396 [place], [place] 411455 Otolaryngology 02/21/22 Sophie Ocasio AuD 909 [place], [place] 465525 Meter Reader Audiology 02/21/22 Henny Rosales APRN CRAFT RECRUITER [address] [place] [address] Assigned Heart and Vascular Provider 08/09/[address] [place] [address] 476735 Registered Dietitian Dietitian, Registered 09/02/22 Christiane Rodríguez MD [address] [place] [address] 396 [place] [address] Otolaryngology 11/12/22 Luis A Escobedo MD 420 [facility] 195 [place] [address] Assigned Surgical Provider 11/01/22 11/28/22 Chely Fernandez PA-C [address] [place] [address] 598075 Assigned Surgical Provider 11/29/22 02/06/23 Jing Cadena, FOUNDER / CEO VETERINARY MEDICAL OFFICER 420 [facility] 450 [place] [address] Clinical Nurse Specialist Anesthesiology 01/15/23 Radha Lopez [facility] [address] [place] [address] 542045 Pharmacist Pharmacist 01/16/23 Luis A Escobedo MD 420 [facility] 195 [place] [address] Assigned Surgical Provider 02/07/23 04/15/23 Geri Loza PA-C 909 [place] [address] Assigned Surgical Provider 04/16/23 Raina Patterson APRN [facility] [address] [place], [place] 092455 Nurse Practitioner Cardiovascular Disease 05/11/23 documented as of this encounter
--- OUTSIDE RECORDS SUMMARY | 2023-06-30 16:58 | XMS_ITS | Encounter Summary ---
Author Name Unknown Organization [facility] Address [address] [place] [address] 55623 Care Team Providers Care .Net Developer Name Role Phone Roderick Morelos MD Unavailable [phone] Magno Wood MD Unavailable [phone] Sophie Ocasio Unavailable [phone] Henny Rosales IMPROVEMENT LEAD PROPERTY TECHNICIAN Unavailable [phone] [facility] Primary Care Pr ovider Sharee Negron RD Unavailable Kaykay Duarte BROACHER Primary Care Provider [phone] Christiane Rodríguez MD Unavailable [phone] Luis A Escobedo MD Unavailable +[phone] Chely Fernandez PA-C Unavailable +[phone] Jing Cadena IMPROVEMENT LEAD TAMALE MAKER Unavailable + [phone] [facility] Unavailable [phone] Luis A Escobedo MD Unavailable [phone] Geri Loza PAEddaC Unavailable [phone] Raina Patterson IMPROVEMENT LEAD PROPERTY TECHNICIAN Unavailable [phone] Encounter Details Date Type Department Care Team (Late st Contact Info) Description 09/29/2022 [facility] [address] 4th [place] [address] Kang Griffiths Social History Tobacco [...] on filedocumented in this encounter Care Teams .Net Developer Relationship Specialty Start Date End Date Clinic, [facility] [place] [address] [place] [address] PCP - General 08/19/22 10/14/22 Kaykay Duarte, BROACHER [address] [place] [address] PCP - General 10/15/22 Roderick Morelos MD [address] [place] [address] Cardiovascular Disease 02/03/22 Magno Wood MD [address] [place] [address] 151725 Otolaryngology 02/21/22 Sophie Ocasio AuD [address] [place] [address] 283935 Roll Filler Audiology 02/21/22 Henny Rosales, IMPROVEMENT LEAD PROPERTY TECHNICIAN [address] [place] [address] Assigned Heart and Vascular Provider 08/09/[address] 909 [place], [place] 719275 Registered Dietitian Dietitian, Registered 09/02/22 Christiane Rodríguez MD 420 [facility] 396 [place], [place] 290555 Otolaryngology 11/12/22 Luis A Escobedo MD [address] [place] [address] 195 [place], [place] 746155 Assigned Surgical Provider 11/01/22 11/28/22 Chely Fernandez PA-C [address] [place] [address] 042265 Assigned Surgical Provider 11/29/22 02/06/23 Jing Cadena, IMPROVEMENT LEAD TAMALE MAKER 420 [facility] 450 [place], [place] 497965 Clinical Nurse Specialist Anesthesiology 01/15/23 Radha Lopez, [facility] [address] [place] [address] 438605 Pharmacist Pharmacist 01/16/23 Luis A Escobedo MD [address] [place] [address] 195 [place], [place] 263875 Assigned Surgical Provider 02/07/23 04/15/23 Geri Loza PA-C 909 [place] [address] Assigned Surgical Provider 04/16/23 Raina Patterson APRN PROPERTY TECHNICIAN [address] [place] [address] Nurse Practitioner Cardiovascular Disease 05/11/23 documented as of this encounter
--- OUTSIDE RECORDS SUMMARY | 2023-06-30 16:58 | XMS_ITS | Encounter Summary ---
Author Name Unknown Organization [place] Address [address] [place] [address] 68120 Care Team Providers Care Supervisor Contact Lens Name Role Phone Roderick Morelos MD Unavailable [phone] Magno Wood MD Unavailable [phone] Sophie Ocasio AuD Unavailable [phone] Henny Rosales PRESS OPERATOR HELPER ORACLE DATA WAREHOUSE DEVELOPER Unavailable +[phone] Unavailable Kaykay Duarte HATCHERY MAN Primary Care Provider [phone] Christiane Rodríguez MD Unavailable +[phone] Chely FernandezC Unavailable [phone] Jing Cadena PRESS OPERATOR HELPER SALSA DANCE INSTRUCTOR Unavailable Radha Lopez [facility] Unavailable [phone] Luis A Escobedo MD Unavailable +[phone] Geri LozaC Unavailable [phone] Raina Patterson PRESS OPERATOR HELPER ORACLE DATA WAREHOUSE DEVELOPER Unavailable +[phone] Encounter Details Date Type Department Care Team (Late st Contact Info) Description 01/09/2023 [facility] [address] [place] [address] Radha Dominguez, RN 420 [facility] 195 [place] [address] Social History Tobacco Use Types [...] documented as of this encounter Care Teams Supervisor Contact Lens Relationship Specialty [place] [address] [place] [address] PCP - General 10/15/22 Roderick Morelos MD [address] [place] [address] Cardiovascular Disease 02/03/22 Magno Wood MD 420 [facility] 396 [place], [place] 416585 Otolaryngology 02/21/22 Sophie Ocasio AuD 909 [place], [place] 063085 Sketch Artist Audiology 02/21/22 Henny Rosales, PRESS OPERATOR HELPER ORACLE DATA WAREHOUSE DEVELOPER [address] [place] [address] Assigned Heart and Vascular Provider 08/09/[address] [place] [address] 330675 Registered Dietitian Dietitian, Registered 09/02/22 Christiane Rodríguez MD [address] [place] [address] 396 [place], [place] 461215 Otolaryngology 11/12/22 Chely Fernandez PA-C [address] [place] [address] 171025 Assigned Surgical Provider 11/29/22 02/06/23 Jing Cadena PRESS OPERATOR HELPER SALSA DANCE INSTRUCTOR [address] [place] [address] 450 [place] [address] Clinical Nurse Specialist Anesthesiology 01/15/23 Radha Lopez, [facility] [address] [place] [address] 276795 Pharmacist Pharmacist 01/16/23 Luis A Escobedo MD 420 [facility] 195 [place], [place] 725635 Assigned Surgical Provider 02/07/23 04/15/23 Geri Loza PA-C [address] [place] [address] 288155 Assigned Surgical Provider 04/16/23 Raina Patterson, PRESS OPERATOR HELPER ORACLE DATA WAREHOUSE DEVELOPER [address] [facility] [address] [place] 985155 Nurse Practitioner Cardiovascular Disease 05/11/23 documented as of this encounter
--- OUTSIDE RECORDS SUMMARY | 2023-06-30 16:58 | XMS_ITS | Encounter Summary ---
Author Name Unknown Organization [facility] Address [address] [place] [address] 12662 Care Team Providers Care Hotel Front Desk Agent Name Role Phone Roderick Morelos MD Unavailable [phone] Magno Wood MD Unavailable [phone] Sophie Ocasio AuD Unavailable +[phone] Henny Rosales ELECTRICAL/INSTRUMENT TECHNICIAN CIRCUITRY NEGATIVE INSPECTOR Unavailable +[phone] Unavailable Kaykay Duarte WINDOWS SUPPORT ENGINEER Primary Care Provider [phone] Christiane Rodríguez MD Unavailable +[phone] Luis A Escobedo MD Unavailable +[phone] Chely FernandezC Unavailable +[phone] Jing Cadena APRN DAIRY QUALITY ASSURANCE OFFICER Unavailable +[phone] Radha Lopez [facility] Unavailable +[phone] Luis A Escobedo MD Unavailable +[phone] Geri LozaC Unavailable [phone] Raina Patterson APRN CIRCUITRY NEGATIVE INSPECTOR Unavailable +[phone] Encounter Details Date Type Department Care Team (Late st Contact Info) Description 10/17/2022 MyC Medical Advice [facility] [place] 334269 [facility] 4th [place] [address] Henny Arguello RN Social History [...] documented as of this encounter Care Teams Hotel Front Desk Agent Relationship Specialty [place] [address] [place] [address] PCP - General 10/15/22 Roderick Morelos MD [address] [place] [address] Cardiovascular Disease 02/03/22 Magno Wood MD [address] [place] [address] 396 [place], [place] 193725 Otolaryngology 02/21/22 Sophie Ocasio, AuD [address] [place] [address] [phone] File System Installer Audiology 02/21/22 Henny Rosales APRN CIRCUITRY NEGATIVE INSPECTOR [address] [place] [address] Assigned Heart and Vascular Provider 08/09/[address] [place] [address] 018235 Registered Dietitian Dietitian, Registered 09/02/22 Christiane Rodríguez MD [address] [place] [address] 396 [place], [place] 925185 Otolaryngology 11/12/22 Luis A Escobedo MD [address] [place] [address] 756765 Assigned Surgical Provider 11/01/22 11/28/22 Chely Fernandez PA-C [address] [place] [address] 182925 Assigned Surgical Provider 11/29/22 02/06/23 Jing Cadena APRN DAIRY QUALITY ASSURANCE OFFICER [address] [place] [address] 450 [place], [place] 306355 Clinical Nurse Specialist Anesthesiology 01/15/23 Radha Lopez [facility] [address] [place] [address] 834895 Pharmacist Pharmacist 01/16/23 Luis A Escobedo MD [address] [place] [address] 195 [place], [place] 277975 Assigned Surgical Provider 02/07/23 04/15/23 Geri Loza PA-C 9 [place], [place] 605955 Assigned Surgical Provider 04/16/23 Raina Patterson APRN CNP [address] [place] [address] Nurse Practitioner Cardiovascular Disease 05/11/23 documented as of this encounter
--- OUTSIDE RECORDS SUMMARY | 2023-06-30 16:58 | XMS_ITS | Encounter Summary ---
Author Name Unknown Organization [facility] Address [address] [place] [address] 59743 Care Team Providers Care Temporary Data Entry Clerk Name Role Phone Roderick Morelos MD Unavailable [phone] Magno Wood MD Unavailable [phone] Sophie Ocasio AuD Unavailable [phone] Henny Rosales JAILER CHIEF MANAGING PARTNER DIGITAL CONTENT MARKETING [place] Unavailable [phone] Unavailable Kaykay Duarte HEARING SCREENER Primary Care Provider [phone] Christiane Rodríguez MD Unavailable +[phone] Luis A Escobedo MD Unavailable [phone] Chely FernandezC Unavailable +[phone] Jing Cadena APRN DORMITORY SUPERVISOR Unavailable +[phone] Radha Lopez [facility] Unavailable +[phone] Luis A Escobedo MD Unavailable [phone] Geri LozaC Unavailable [phone] Raina Patterson JAILER CHIEF MANAGING PARTNER DIGITAL CONTENT MARKETING [place] Unavailable +[phone] Encounter Details Date Type Department Care Team (Late st Contact Info) Description 10/16/2022 MyC Medical Advice Initial Department Mychart, [place] Social History Tobacco Use Types Packs/Day Years [...] documented as of this encounter Care Teams Temporary Data Entry Clerk Relationship Specialty Start Date End Date Kaykay Duarte, HEARING SCREENER [address] [place] [address] [place] 538497 PCP - General 10/15/22 Roderick Morelos MD [address] [place], [place] 900175 Cardiovascular Disease 02/03/22 Magno Wood MD 420 [facility] 396 [place], [place] 267845 Otolaryngology 02/21/22 Sophie Ocasio AuD 909 [place], [place] 332635 Anesthesiology Physician Audiology 02/21/22 Henny Rosales APRN MANAGING PARTNER DIGITAL CONTENT MARKETING [place] [address] [place] [address] Assigned Heart and Vascular Provider 08/09/[address] 909 [place], [place] 211935 Registered Dietitian Dietitian, Registered 09/02/22 Christiane Rodríguez MD 420 [facility] 396 [place], [place] 574315 Otolaryngology 11/12/22 Luis A Escobedo MD [address] [place] [address] Assigned Surgical Provider 11/01/22 11/28/22 Chely Fernandez PA-C [address] [place] [address] 238215 Assigned Surgical Provider 11/29/22 02/06/23 Jing Cadena, JAILER CHIEF DORMITORY SUPERVISOR 420 [facility] 450 [place], [place] 046065 Clinical Nurse Specialist Anesthesiology 01/15/23 Radha Lopez, [facility] 9 [place], [place] 622895 Pharmacist Pharmacist 01/16/23 Luis A Escobedo MD [address] [place] [address] 195 [place], [place] 435895 Assigned Surgical Provider 02/07/23 04/15/23 Geri Loza PA-C 9 [place] [address] Assigned Surgical Provider 04/16/23 Raina Patterson APRN MANAGING PARTNER DIGITAL CONTENT MARKETING [place] [address] [place] [address] Nurse Practitioner Cardiovascular Disease 05/11/23 documented as of this encounter
--- OUTSIDE RECORDS SUMMARY | 2023-06-30 16:58 | XMS_ITS | Encounter Summary ---
Author Name Unknown Organization [place] Address [address] [place] [address] 34221 Care Team Providers Care Arborist Climber Name Role Phone Roderick Morelos MD Unavailable [phone] Magno Wood MD Unavailable [phone] Sophie Ocasio AuD Unavailable +[phone] Henny Rosales LIFTS AND CRANES INSPECTOR ULTRASOUND MANAGER Unavailable [phone] Unavailable Kaykay Duarte BUSINESS PERFORMANCE ANALYST Primary Care Provider [phone] Christiane Rodríguez MD Unavailable [phone] Luis A Escobedo MD Unavailable +[phone] Chely FernandezC Unavailable +[phone] Jing Cadena APRN SAW REPAIRER Unavailable +[phone] Radha Lopez [facility] Unavailable [phone] Luis A Escobedo MD Unavailable [phone] Geri LozaC Unavailable [phone] Raina Patterson APRN ULTRASOUND MANAGER Unavailable [phone] Encounter Details Date Type Department Care Team (Late st Contact Info) Description 10/23/2022 External Order Results [facility] [address] [place] [address] Outside, Provider Class 3 severe obesity with [...] documented as of this encounter Care Teams Arborist Climber Relationship Specialty [place] [address] [place] 6[address]267 PCP - General 10/15/22 Roderick Morelos MD [address] [place] 449885 Cardiovascular Disease 02/03/22 Magno Wood MD [address] 572205 Otolaryngology 02/21/22 Sophie Ocasio AuD 909 [place], [place] 547925 Blueprint Cutter Audiology 02/21/22 Henny Rosales APRN ULTRASOUND MANAGER [address] [place] [phone] Assigned Heart and Vascular Provider 08/09/[address] [place] [address] 195905 Registered Dietitian Dietitian, Registered 09/02/22 Christiane Rodríguez MD [address] [place] [address] 396 [place], [place] 803955 Otolaryngology 11/12/22 Luis A Escobedo MD [address] [place] [address] 232895 Assigned Surgical Provider 11/01/22 11/28/22 Chely Fernandez PA-C [address] [place] [address] 600565 Assigned Surgical Provider 11/29/22 02/06/23 Jing Cadena, LIFTS AND CRANES INSPECTOR SAW REPAIRER [address] [place] [address] 693995 Clinical Nurse Specialist Anesthesiology 01/15/23 Radha Lopez, [facility] [address] [place] [address] 612185 Pharmacist Pharmacist 01/16/23 Luis A Escobedo MD [address] [place] [address] 577055 Assigned Surgical Provider 02/07/23 04/15/23 Geri Loza PA-C [address] [place] [address] 875245 Assigned Surgical Provider 04/16/23 Raina Patterson APRN [facility] [address] [place] [address] Nurse Practitioner Cardiovascular Disease 05/11/23 documented as of this encounter
--- OUTSIDE RECORDS SUMMARY | 2023-06-30 16:58 | XMS_ITS | Encounter Summary ---
Author Name Unknown Organization [place] Address [address] [place] [address] Care Team Providers Care Touring Production Manager Name Role Phone Roderick Morelos MD Unavailable [phone] Magno Wood MD Unavailable [phone] Sophie Ocasio AuD Unavailable [phone] Henny Rosales AIRLINE FLIGHT ATTENDANT ASSEMBLER HYDRAULIC BACKHOE Unavailable [phone] Unavailable Kaykay Duarte SOIL CONSERVATIONIST Primary Care Provider [phone] Christiane Rodríguez MD Unavailable [phone] Luis A Escobedo MD Unavailable +[phone] Chely FernandezC Unavailable [phone] Jing Cadena APRN CLAIMS SPECIALIST Unavailable [phone] Radha Lopez [facility] Unavailable [phone] Luis A Escobedo MD Unavailable [phone] Geri LozaC Unavailable [phone] Raina Patterson APRN ASSEMBLER HYDRAULIC BACKHOE Unavailable [phone] Encounter Details Date Type Department Care Team (Late st Contact Info) Description 11/21/2022 MyC Medical Advice [facility] [place] 909 [facility] 4th [place] [phone] Geri Loza PA-C [address] [place] [address] [id number] Social History Tobacco Use Types Packs/Day Years [...] documented as of this encounter Care Teams Touring Production Manager Relationship Specialty Start Date End Date Kaykay Duarte SOIL CONSERVATIONIST [address] [place] [address] PCP - General 10/15/22 Roderick Morelos MD [address] [place] 7[address]25 Cardiovascular Disease 02/03/22 Magno Wood MD [address] [place] [address] [facility] 396 [place], [place] 197975 Otolaryngology 02/21/22 Sophie Ocasio AuD 909 [place], [place] 903735 Personal Loan Specialist Audiology 02/21/22 Henny Rosales APRN ASSEMBLER HYDRAULIC BACKHOE [address] [place] [address] Assigned Heart and Vascular Provider 08/09/[address] [place] [address] [phone] Registered Dietitian Dietitian, Registered 09/02/22 Christiane Rodríguez MD [address] [place] [address] 396 [place] [address] Otolaryngology 11/12/22 Luis A Escobedo MD 420 [facility] 195 [place] [address] Assigned Surgical Provider 11/01/22 11/28/22 Chely Fernandez PA-C [address] [place] [address] 083315 Assigned Surgical Provider 11/29/22 02/06/23 Jing Cadena, AIRLINE FLIGHT ATTENDANT CLAIMS SPECIALIST 420 [facility] 450 [place] [address] Clinical Nurse Specialist Anesthesiology 01/15/23 Radha Lopez [facility] [address] [place] [address] 299515 Pharmacist Pharmacist 01/16/23 Luis A Escobedo MD [address] [place] [address] [facility] 195 [place] [address] Assigned Surgical Provider 02/07/23 04/15/23 Geri Loza PA-C 909 [place] [address] Assigned Surgical Provider 04/16/23 Raina Patterson APRN [facility] [address] [place], [place] 038415 Nurse Practitioner Cardiovascular Disease 05/11/23 documented as of this encounter
--- OUTSIDE RECORDS SUMMARY | 2023-06-30 16:58 | XMS_ITS | Encounter Summary ---
Author Name Unknown Organization [place] Address [address] [place] [address] Care Team Providers Care Wharf Laborer Name Role Phone Roderick Morelos MD Unavailable Magno Wood MD Unavailable [phone] Sophie Ocasio AuD Unavailable [phone] Henny Rosales TRANSPORT SPECIALIST ART CONSERVATOR Unavailable [phone] Unavailable Kaykay Duarte GRAB OPERATOR Primary Care Provider [phone] Christiane Rodríguez MD Unavailable [phone] Luis A Escobedo MD Unavailable [phone] Chely FernandezC Unavailable [phone] Jing Cadena APRN ASSEMBLER 1ST SHIFT Unavailable [phone] Radha Lopez [facility] Unavailable +[phone] Luis A Escobedo MD Unavailable [phone] Geri LozaC Unavailable +[phone] Raina Patterson APRN ART CONSERVATOR Unavailable +[phone] Encounter Details Date Type Department Care Team (Late st Contact Info) Description 10/15/2022 [facility] [place] 07[address] [facility] SE 4th [place] [address] Luis A Escobedo MD [address] [place] [address] [facility] 195 [place], [place] 546215 Social History Tobacco Use Types Packs/Day Years [...] documented as of this encounter Care Teams Wharf Laborer Relationship Specialty [place] [address] [place] [address] PCP - General 10/15/22 Roderick Morelos MD [address] [place] [address] Cardiovascular Disease 02/03/22 Magno Wood MD 420 [facility] SE [facility] 396 [place], [place] 224445 Otolaryngology 02/21/22 Sophie Ocasio AuD 909 [place], [place] 434345 Prisoner Classification Interviewer Audiology 02/21/22 Henny Rosales APRN ART CONSERVATOR [address] [place] [address] Assigned Heart and Vascular Provider 08/09/[address] [place] [address] 764695 Registered Dietitian Dietitian, Registered 09/02/22 Christiane Rodríguez MD [address] [place] [address] 396 [place] [address] Otolaryngology 11/12/22 Luis A Escobedo MD 420 [facility] 195 [place] [address] Assigned Surgical Provider 11/01/22 11/28/22 Chely Fernandez PA-C [address] [place] [address] [phone] Assigned Surgical Provider 11/29/22 02/06/23 Jing Cadena, TRANSPORT SPECIALIST ASSEMBLER 1ST SHIFT 420 [facility] 450 [place] [address] Clinical Nurse Specialist Anesthesiology 01/15/23 Radha Lopez [facility] [address] [place] [address] 816055 Pharmacist Pharmacist 01/16/23 Luis A Escobedo MD [address] [place] [address] [facility] 195 [place] [address] Assigned Surgical Provider 02/07/23 04/15/23 Geri Loza PA-C 909 [place] [address] Assigned Surgical Provider 04/16/23 Raina Patterson APRN [facility] [address] [place], [place] 818915 Nurse Practitioner Cardiovascular Disease 05/11/23 documented as of this encounter
--- OUTSIDE RECORDS SUMMARY | 2023-06-30 16:58 | XMS_ITS | Encounter Summary ---
Author Name Unknown Organization [place] Address [address] [place] [address] Care Team Providers Care Senior Customer Service Representative Name Role Phone Roderick Morelos MD Unavailable [phone] Magno Wood MD Unavailable [phone] Sophie Ocasio Unavailable [phone] Henny Rosales CHILD CARE SUPERVISOR MATLAB DEVELOPER Unavailable [phone] [facility] Primary Care Pr ovider Sharee Negron RD Unavailable Kaykay Duarte IP LITIGATION ASSOCIATE Primary Care Provider [phone] Christiane Rodríguez MD Unavailable [phone] Luis A Escobedo MD Unavailable +[phone] Chely Fernandez PA-C Unavailable [phone] Jing Cadena CHILD CARE SUPERVISOR CAR CLEANING SUPERVISOR Unavailable + [phone] Radha Lopez [facility] Unavailable [phone] Luis A Escobedo MD Unavailable [phone] Geri Loza PAEddaC Unavailable [phone] Raina Patterson CHILD CARE SUPERVISOR MATLAB DEVELOPER Unavailable +[phone] Encounter Details Date Type Department Care Team (Late st Contact Info) Description 09/15/2022 MyC Medical Advice [facility] [address] 4th [place] [address] Maria Guadalupe Wolfe Social History [...] filedocumented in this encounter Care Teams Senior Customer Service Representative Relationship Specialty Start Date End Date Clinic, [place] [address] [place] [address] PCP - General 08/19/22 10/14/22 Kaykay Duarte, IP LITIGATION ASSOCIATE [address] [place] [address] PCP - General 10/15/22 Roderick Morelos MD [address] [place], [place] 521465 Cardiovascular Disease 02/03/22 Magno Wood MD [address] [place] [address] 109925 Otolaryngology 02/21/22 Sophie Ocasio AuD [address] [place] [address] 082865 Assembly Line Robot Operator Audiology 02/21/22 Henny Rosales, CHILD CARE SUPERVISOR MATLAB DEVELOPER [address] [place] [address] Assigned Heart and Vascular Provider 08/09/[address] 9 [place] [address] Registered Dietitian Dietitian, Registered 09/02/22 Christiane Rodríguez MD 420 [facility] 396 [place], [place] 265855 Otolaryngology 11/12/22 Luis A Escobedo MD [address] [place] [address] 195 [place], [place] 999085 Assigned Surgical Provider 11/01/22 11/28/22 Chely Fernandez PA-C [address] [place] [address] 109835 Assigned Surgical Provider 11/29/22 02/06/23 Jing Cadena, CHILD CARE SUPERVISOR CAR CLEANING SUPERVISOR [address] [place] [address] 450 [place], [place] 007335 Clinical Nurse Specialist Anesthesiology 01/15/23 Radha Lopez, [facility] [address] [place] [address] 218355 Pharmacist Pharmacist 01/16/23 Luis A Escobedo MD [address] [place] [address] 195 [place], [place] 131795 Assigned Surgical Provider 02/07/23 04/15/23 Geri Loza PA-C 909 [place] [address] Assigned Surgical Provider 04/16/23 Raina Patterson APRN MATLAB DEVELOPER [address] [place] [address] Nurse Practitioner Cardiovascular Disease 05/11/23 documented as of this encounter
--- OUTSIDE RECORDS SUMMARY | 2023-06-30 16:58 | XMS_ITS | Encounter Summary ---
Author Name Unknown Organization [place] Address [address] [place] [address] Care Team Providers Care Backup Administrative Coordinator Name Role Phone Roderick Morelos MD Unavailable [phone] Magno Wood MD Unavailable [phone] Sophie Ocasio AuD Unavailable [phone] Henny Rosales HEATING MECHANIC BULL RIDER Unavailable [phone] Unavailable Kaykay Duarte OIL LEASE BUYER Primary Care Provider [phone] Christiane Rodríguez MD Unavailable [phone] Luis A Escobedo MD Unavailable [phone] Chely FernandezC Unavailable [phone] Jing Cadena APRN WEB ART DIRECTOR Unavailable +[phone] Radha Lopez [facility] Unavailable [phone] Luis A Escobedo MD Unavailable [phone] Geri LoazC Unavailable [phone] Raina Patterson APRN BULL RIDER Unavailable [phone] Encounter Details Date Type Department Care Team (Late st Contact Info) Description 10/23/2022 External Order Results [facility] [address] [place] [address] Outside, Provider Class 3 severe obesity with [...] PATHWAY SURGERY IS SCHEDULED No Luis A Escobeod MD documented as of this encounter Procedures [...] Vitamin A (10/23/2022 11:20 AM CDT) Pathologist [facility] Vitamin A (External) 0.82 0.30 - 1.20 [...] Vitamin B12 (10/23/2022 11:20 AM CDT) Pathologist [facility] Vitamin B12 (External) 294 213 - 816 pg/mL NON-INTERFACED (ONBASE SCANS) Blood BLOOD SPECIMEN / Unknown 10/23/2022 11:20 AM CDT Narrative [facility] - 10/24/2022 1:41 PM CDT Verified by Gisel Izaguirre on 10/24/2022. Geri Loza PA-C LAB - BLOOD ORDERAB LES [facility] NON-INTERFACED (ONBASE SCANS) * Ferritin (10/23/2022 11:20 AM CDT) Pathologist [facility] Ferritin (External) 88 9 - 204 ng/mL [...] - BLOOD ORDERAB LES Performing Organization Address City/[facility]/ZIP Co de Phone Number [facility] NON-INTERFACED [...] - BLOOD ORDERABL ES Performing Organization Address [facility]/ZIP Co de Phone Number [facility] NON-INTERFACED [...] - BLOOD ORDERABL ES Performing Organization Address [facility]/ZIP Co de Phone Number [facility] PFT NON-INTERFACED [...] documented as of this encounter Care Teams Backup Administrative Coordinator Relationship Specialty [place] [address] [place] [address] PCP - General 10/15/22 Roderick Morelos MD [address] [place], [place] 129335 Cardiovascular Disease 02/03/22 Magno Wood MD 420 [facility] 396 [place], [place] 297025 Otolaryngology 02/21/22 Sophie Ocasio AuD 909 [place], [place] 729675 Auto Servicer Audiology 02/21/22 Henny Rosales, HEATING MECHANIC BULL RIDER [address] [place] [address] Assigned Heart and Vascular Provider 08/09/[address] 909 [place], [place] 391825 Registered Dietitian Dietitian, Registered 09/02/22 Christiane Rodríguez MD 420 [facility] 396 [place], [place] 286235 Otolaryngology 11/12/22 Luis A Escobedo MD [address] [place] [address] 195 [place], [place] 101745 Assigned Surgical Provider 11/01/22 11/28/22 Chely Fernandez PA-C [address] [place] [address] 049805 Assigned Surgical Provider 11/29/22 02/06/23 Jing Cadena, HEATING MECHANIC WEB ART DIRECTOR 420 [facility] 450 [place], [place] 276885 Clinical Nurse Specialist Anesthesiology 01/15/23 Radha Lopez [facility] 9 [place], [place] 041055 Pharmacist Pharmacist 01/16/23 Luis A Escobedo MD 420 [facility] 195 [place], [place] 961485 Assigned Surgical Provider 02/07/23 04/15/23 Geri Loza PA-C 9 [place] [address] Assigned Surgical Provider 04/16/23 Raina Patterson APRN BULL RIDER [address] [place] [address] Nurse Practitioner Cardiovascular Disease 05/11/23 documented as of this encounter
--- OUTSIDE RECORDS SUMMARY | 2023-06-30 16:58 | XMS_ITS | Encounter Summary ---
Author Name Unknown Organization [place] Address [address] [place] [address]. [place] [address] Care Team Providers Care Hospital Pharmacy Technician Name Role Phone Roderick Morelos MD Unavailable [phone] Magno Wood MD Unavailable [phone] Sophie Ocasio AuD Unavailable Henny Rosales MANAGER INVENTORY MANAGEMENT VIRTUAL CLASSROOM MANAGER Unavailable Sharee Negron RD Unavailable Kaykay Duarte FREIGHT BRAKE OPERATOR Primary Care Provider Christiane Rodríguez MD Unavailable Chely FernandezC Unavailable [phone] Jing Cadena MANAGER INVENTORY MANAGEMENT VERIFICATION MANAGER Unavailable Radha Lopez [facility] Unavailable Luis A Escobedo MD Unavailable Encounter Details Date Type Department Care Team (Late st Contact Info) Description 01/12/2023 Telephone [facility] Weight [facility] [place] 909 [facility] SE 4th [place] [address] Radha Dominguez, RN 420 [facility] 195 [place] [address] Social History Tobacco Use Types [...] AM CDT Phone (Incoming) Billie Connolly (Self) [phone] (M) Reason for Call: call back What are your questions or concerns: pt would like a call back regarding surg date Could we send this information to you in [facility] or would you prefer to receive a [...] of this encounter Care Teams Hospital Pharmacy Technician Relationship Specialty [place] [address] [place] 983597 PCP - General 10/15/22 Roderick Morelos MD [address] [place] 426615 Cardiovascular Disease 02/03/22 Magno Wood MD [address] [place] [address] Otolaryngology 02/21/22 Sophie Ocasio AuD [address] [place] [address] Cushion Builder Audiology 02/21/22 Henny Rosales APRN VIRTUAL CLASSROOM MANAGER [address] [place] [address] Assigned Heart and Vascular Provider 08/09/[address] [place] [address] 586815 Registered Dietitian Dietitian, Registered 09/02/22 Christiane Rodríguez MD [address] [place] [address] 774825 Otolaryngology 11/12/22 Chely Fernandez PA-C [address] [place] [address] 227095 Assigned Surgical Provider 11/29/22 02/06/23 Jing Cadena APRN VERIFICATION MANAGER [address] [place] [address] 832695 Clinical Nurse Specialist Anesthesiology 01/15/23 Radha Lopez, [facility] [address] [place] [address] Pharmacist Pharmacist 01/16/23 Luis A Escobedo MD [address] [place] [address] Assigned Surgical Provider 02/07/23 04/15/23 documented as of this encounter
--- OUTSIDE RECORDS SUMMARY | 2023-06-30 16:58 | XMS_ITS | Encounter Summary ---
Author Name Unknown Organization [place] Address [address] [place] [address] Care Team Providers Care Meter Repairer Helper Name Role Phone Roderick Morelos MD Unavailable [phone] Magno Wood MD Unavailable [phone] Sophie Ocasio AuD Unavailable [phone] Henny Rosales LIBRARY ASSOCIATE TRAVELING PHLEBOTOMIST Unavailable [phone] Unavailable Kaykay Duarte BOARDMARKER Primary Care Provider [phone] Christiane Rodríguez MD Unavailable [phone] Luis A Escobedo MD Unavailable [phone] Chely FernandezC Unavailable [phone] Jing Cadena APRN VEGETABLE VENDOR Unavailable [phone] Radha Lopez [facility] Unavailable [phone] Luis A Escobedo MD Unavailable [phone] Geri LozaC Unavailable [phone] Raina Patterson APRN TRAVELING PHLEBOTOMIST Unavailable [phone] Encounter Details Date Type Department Care Team (Late st Contact Info) Description 11/03/2022 [facility] [place] 909 [facility] 4th [place] [address] Kang Griffiths Social History Tobacco [...] documented as of this encounter Care Teams Meter Repairer Helper Relationship Specialty [place] [address] [facility] [address] PCP - General 10/15/22 Roderick Morelos MD [address] [place] [address] Cardiovascular Disease 02/03/22 Magno Wood MD [address] [place] [address] 396 [place], [place] 500315 Otolaryngology 02/21/22 Sophie Ocasio, AuD [address] [place] [address] 123785 Md Psychiatry Audiology 02/21/22 Henny Rosales APRN TRAVELING PHLEBOTOMIST [address] [place] [address] Assigned Heart and Vascular Provider 08/09/[address] [place] [address] Registered Dietitian Dietitian, Registered 09/02/22 Christiane Rodríguez MD [address] [place] [address] 396 [place], [place] 727765 Otolaryngology 11/12/22 Luis A Escobedo MD [address] [place] [address] 195 [place], [place] 929555 Assigned Surgical Provider 11/01/22 11/28/22 Chely Fernandez PA-C [address] [place] [address] 538205 Assigned Surgical Provider 11/29/22 02/06/23 Jing Cadena APRN VEGETABLE VENDOR [address] [place] [address] 450 [place], [place] 093135 Clinical Nurse Specialist Anesthesiology 01/15/23 Radha Lopez [facility] [address] [place] [address] 794035 Pharmacist Pharmacist 01/16/23 Luis A Escobedo MD [address] [place] [address] 195 [place], [place] 764025 Assigned Surgical Provider 02/07/23 04/15/23 Geri Loza PA-C 9 [place], [place] 147785 Assigned Surgical Provider 04/16/23 Raina Patterson APRN CNP [address] [place] [address] Nurse Practitioner Cardiovascular Disease 05/11/23 documented as of this encounter
--- OUTSIDE RECORDS SUMMARY | 2023-06-30 16:58 | XMS_ITS | Encounter Summary ---
Author Name Unknown Organization [place] Address [address] [place] [address] 60823 Care Team Providers Care Agricultural Equipment Salesperson Name Role Phone Roderick Morelos MD Unavailable [phone] Magno Wood MD Unavailable [phone] Sophie Ocasio AuD Unavailable [phone] Henny Rosales ESTHETICIAN MAKEUP ARTIST ENDOSCOPY SPECIALTY TECHNICIAN Unavailable [phone] Unavailable Kaykay Duarte COBOL ENGINEER Primary Care Provider Christiane Rodríguez MD Unavailable [phone] Chely FernandezC Unavailable [phone] Jing Cadena ESTHETICIAN MAKEUP ARTIST SALES ESTIMATOR Unavailable Radha Lopez [facility] Unavailable [phone] Luis A Escobedo MD Unavailable [phone] Geri LozaC Unavailable [phone] Raina Patterson ESTHETICIAN MAKEUP ARTIST ENDOSCOPY SPECIALTY TECHNICIAN Unavailable [phone] Encounter Details Date Type Department Care Team (Late st Contact Info) Description 01/12/2023 MyC [facility] Social History Tobacco Use [...] documented as of this encounter Care Teams Agricultural Equipment Salesperson Relationship Specialty Start Date End Date Kaykay Duarte COBOL ENGINEER [address] [place] [address] PCP - General 10/15/22 Roderick Morelos MD [address] [place] [address] Cardiovascular Disease 02/03/22 Magno Wood MD 420 [facility] 396 [place], [place] 900845 Otolaryngology 02/21/22 Sophie Ocasio AuD 909 [place], [place] 872245 Child Care Audiology 02/21/22 Henny Rosales APRN ENDOSCOPY SPECIALTY TECHNICIAN [address] [place] [phone] Assigned Heart and Vascular Provider 08/09/[address]09 [place], [place] 899875 Registered Dietitian Dietitian, Registered 09/02/22 Christiane Rodríguez MD 420 [facility] 396 [place], [place] 166275 Otolaryngology 11/12/22 Chely Fernandez PA-C [address] [place] [address] 240175 Assigned Surgical Provider 11/29/22 02/06/23 Jing Cadena APRN SALES ESTIMATOR 420 [facility] 450 [place], [place] 739[address] Clinical Nurse Specialist Anesthesiology 01/15/23 Radha Lopez, [facility] [address] [place] [address] 989595 Pharmacist Pharmacist 01/16/23 Luis A Escobedo MD 420 [facility] 195 [place], [place] 074295 Assigned Surgical Provider 02/07/23 04/15/23 Geri Loza PA-C [address] [place] [address] 735385 Assigned Surgical Provider 04/16/23 Raina Patterson APRN ENDOSCOPY SPECIALTY TECHNICIAN [address] [place] 847755 Nurse Practitioner Cardiovascular Disease 05/11/23 documented as of this encounter
--- OUTSIDE RECORDS SUMMARY | 2023-06-30 16:58 | XMS_ITS | Encounter Summary ---
Author Name Unknown Organization [place] Address [address] [place] [address] 33439 Care Team Providers Care Title Officer Name Role Phone Roderick Morelos MD Unavailable Magno Wood MD Unavailable [phone] Sophie Ocasio Unavailable +[phone] Henny Rosales MANAGER OF COMPLIANCE AUDIT CLERK Unavailable [phone] [facility] Primary Care Pr ovider Sharee Negron RD Unavailable Kaykay Duarte IMPORT COORDINATOR Primary Care Provider [phone] Christiane Rodríguez MD Unavailable +[phone] Luis A Escobedo MD Unavailable +[phone] Chely Fernandez PA-C Unavailable +[phone] Jing Cadena MANAGER OF COMPLIANCE VICE PRESIDENT MEDICAL AFFAIRS Unavailable + [phone] Radha Lopez [facility] Unavailable +- [phone] Luis A Escobedo MD Unavailable +[phone] Geri Loza PAEddaC Unavailable +[phone] Raina Patterson MANAGER OF COMPLIANCE AUDIT CLERK Unavailable +[phone] Encounter Details Date Type Department Care Team (Late st Contact Info) Description 09/15/2022 [facility] [address] 4th [place] [address] Kang Griffiths Social History Tobacco [...] on filedocumented in this encounter Care Teams Title Officer Relationship Specialty Start [place] [address] [place] [address] PCP - General 08/19/22 10/14/22 Kaykay Duarte, IMPORT COORDINATOR [address] [place] [address] PCP - General 10/15/22 Roderick Morelos MD [address] [place], [place] 050385 Cardiovascular Disease 02/03/22 Magno Wood MD [address] [place] [address] 825585 Otolaryngology 02/21/22 Sophie Ocasio AuD [address] [place] [address] 707745 Flat Optical Element Maker Audiology 02/21/22 Henny Rosales, MANAGER OF COMPLIANCE AUDIT CLERK [address] [place] [address] Assigned Heart and Vascular Provider 08/09/[address] 9 [place] [address] Registered Dietitian Dietitian, Registered 09/02/22 Christiane Rodríguez MD 420 [facility] 396 [place], [place] 785755 Otolaryngology 11/12/22 Luis A Escobedo MD [address] [place] [address] 195 [place], [place] 618365 Assigned Surgical Provider 11/01/22 11/28/22 Chely Fernandez PA-C [address] [place] [address] 780765 Assigned Surgical Provider 11/29/22 02/06/23 Jing Cadena, MANAGER OF COMPLIANCE VICE PRESIDENT MEDICAL AFFAIRS [address] [place] [address] 450 [place], [place] 226665 Clinical Nurse Specialist Anesthesiology 01/15/23 Radha Lopez, [facility] [address] [place] [address] 819135 Pharmacist Pharmacist 01/16/23 Luis A Escobedo MD [address] [place] [address] 195 [place], [place] 818825 Assigned Surgical Provider 02/07/23 04/15/23 Geri Loza PA-C 909 [place] [address] Assigned Surgical Provider 04/16/23 Raina Patterson APRN AUDIT CLERK [address] [place] [address] Nurse Practitioner Cardiovascular Disease 05/11/23 documented as of this encounter
--- OUTSIDE RECORDS SUMMARY | 2023-06-30 16:58 | XMS_ITS | Encounter Summary ---
Author Name Unknown Organization [place] Address [address] [place] [address]695 Care Team Providers Care Brick And Tile Making Machine Operator Name Role Phone Roderick Morelos MD Unavailable [phone] Magno Wood MD Unavailable [phone] Sophie Ocasio AuD Unavailable +[phone] Henny Rosales BULLET LUBRICANT MIXER AIRFRAME TECHNICAL OFFICER Unavailable +[phone] Unavailable Kaykay Duarte WEB WEAVER Primary Care Provider Christiane Rodríguez MD Unavailable +[phone] Chely FernandezC Unavailable +[phone] Jing Cadena BULLET LUBRICANT MIXER CHAPLAIN RESIDENT Unavailable +[phone] Radha Lopez [facility] Unavailable +[phone] Luis A Escobedo MD Unavailable +[phone] Geri LozaC Unavailable +[phone] Raina Patterson BULLET LUBRICANT MIXER AIRFRAME TECHNICAL OFFICER Unavailable +[phone] Encounter Details Date Type Department Care Team (Late st Contact Info) Description 01/07/2023 [facility] [address]th [place] [phone] Aye [place] Social History Tobacco Use Types Packs/Day Years [...] documented as of this encounter Care Teams Brick And Tile Making Machine Operator Relationship Specialty [place] [address] [place] [address] PCP - General 10/15/22 Roderick Morelos MD [address] [place] [address] Cardiovascular Disease 02/03/22 Magno Wood MD [address] [place] [address] 661665 Otolaryngology 02/21/22 Sophie Ocasio, Nick [address] [place] [address] 005855 Engineering Operator Audiology 02/21/22 Henny Rosales APRN AIRFRAME TECHNICAL OFFICER [address] [place] [phone] Assigned Heart and Vascular Provider 08/09/[address] [place] [address] 693765 Registered Dietitian Dietitian, Registered 09/02/22 Christiane Rodríguez MD [address] [place] [address] 396 [place], [place] 463825 Otolaryngology 11/12/22 Chely Fernandez PA-C [address] [place] [address] 192765 Assigned Surgical Provider 11/29/22 02/06/23 Jing Cadena APRN CHAPLAIN RESIDENT [address] [place] [address] 450 [place], [place] 011215 Clinical Nurse Specialist Anesthesiology 01/15/23 Radha Lopez, [facility] [address] [place] [address] 444065 Pharmacist Pharmacist 01/16/23 Luis A Escobedo MD [address] [place] [address] 195 [place], [place] 130705 Assigned Surgical Provider 02/07/23 04/15/23 Geri Loza PA-C [address] [place] [address] 412635 Assigned Surgical Provider 04/16/23 Raina Patterson APRN AIRFRAME TECHNICAL OFFICER [address] [facility] [address] [place], [place] 352615 Nurse Practitioner Cardiovascular Disease 05/11/23 documented as of this encounter
--- OUTSIDE RECORDS SUMMARY | 2023-06-30 16:58 | XMS_ITS | Encounter Summary ---
Author Name Unknown Organization [place] Address [address] [place] [address] 34656 Care Team Providers Care Patent Leather Sorter Name Role Phone Roderick Morelos MD Unavailable [phone] Magno Wood MD Unavailable [phone] Sophie Ocasio Unavailable +[phone] Henny Rosales RESTORATIVE AIDE BOX MACHINE OPERATOR Unavailable +[phone] [facility] Primary Care Pr ovider Sharee Negron RD Unavailable Kaykay Duarte BUFFER AUTOMATIC Primary Care Provider [phone] Christiane Rodríguez MD Unavailable [phone] Luis A Escobedo MD Unavailable +[phone] Chely Fernandez PA-C Unavailable +[phone] Jing Cadena RESTORATIVE AIDE EVENTS ASSISTANT Unavailable + [phone] Radha Lopez [facility] Unavailable +[phone] Luis A Escobedo MD Unavailable +[phone] Geri Loza PAEddaC Unavailable +[phone] Raina Patterson RESTORATIVE AIDE BOX MACHINE OPERATOR Unavailable +[phone] Encounter Details Date Type Department Care Team (Late st Contact Info) Description 10/03/2022 MyC Medical Advice [facility] [address] 4th [place] [phone] Geri Loza PA-C [address] [place] [address] Social History Tobacco Use Types Packs/Day Years [...] on filedocumented in this encounter Care Teams Patent Leather Sorter Relationship Specialty Start Date End Date Clinic, [place] [address] [place] [address] PCP - General 08/19/22 10/14/22 Kaykay Duarte BUFFER AUTOMATIC [address] [place] [address] [place] [address] PCP - General 10/15/22 Roderick Morelos MD [address] [place] [address] Cardiovascular Disease 02/03/22 Magno Wood MD [address] [place] [address] 349735 Otolaryngology 02/21/22 Sophie Ocasio, AuD [address] [place] [address] 336945 Acid Strength Inspector Audiology 02/21/22 Henny Rosales APRN BOX MACHINE OPERATOR [address] [place] [address] Assigned Heart and Vascular Provider 08/09/[address] [place] [address] Registered Dietitian Dietitian, Registered 09/02/22 Christiane Rodríguez MD [address] [place] [address] 396 [place], [place] 542865 Otolaryngology 11/12/22 Luis A Escobedo MD [address] [place] [address] 195 [place], [place] 024355 Assigned Surgical Provider 11/01/22 11/28/22 Chely Fernandez PA-C [address] [place] [address] 989365 Assigned Surgical Provider 11/29/22 02/06/23 Jing Cadena APRN EVENTS ASSISTANT [address] [place] [address] 450 [place], [place] 072335 Clinical Nurse Specialist Anesthesiology 01/15/23 Radha Lopez [facility] [address] [place] [address] 374145 Pharmacist Pharmacist 01/16/23 Luis A Escobedo MD [address] [place] [address] 195 [place], [place] 864705 Assigned Surgical Provider 02/07/23 04/15/23 Geri Loza PA-C 9 [place], [place] 500045 Assigned Surgical Provider 04/16/23 Raina Patterson APRN CNP [address] [place] [address] Nurse Practitioner Cardiovascular Disease 05/11/23 documented as of this encounter
--- OUTSIDE RECORDS SUMMARY | 2023-06-30 16:58 | XMS_ITS | Encounter Summary ---
Author Name Unknown Organization [place] Address [address] [place] [address] Care Team Providers Care Senior Military Analyst Name Role Phone Roderick Morelos MD Unavailable [phone] Magno Wood MD Unavailable [phone] Sophie Ocasio Unavailable [phone] Henny Rosales RUSSET REPAIRER SOLUTIONS MARKET CONSULTANT Unavailable +[phone] [facility] Primary Care Pr ovider Sharee Negron RD Unavailable Kaykay Duarte POLITICAL CARTOONIST Primary Care Provider [phone] Christiane Rodríguez MD Unavailable +[phone] Luis A Escobedo MD Unavailable +[phone] Chely Fernandez PA-C Unavailable +[phone] Jing Cadena RUSSET REPAIRER FREIGHT CAR LOADER Unavailable + [phone] Radha Lopez [facility] Unavailable +[phone] Luis A Escobedo MD Unavailable [phone] Geri Loza PAEddaC Unavailable [phone] Raina Patterson RUSSET REPAIRER SOLUTIONS MARKET CONSULTANT Unavailable +[phone] Encounter Details Date Type Department Care Team (Late st Contact Info) Description 09/09/2022 Telephone [facility] [place] [address] [place] [address] 4th [place] [address] Geri Loza PA-C 909 [place] [address] Social History Tobacco Use Types Packs/Day Years [...] encounter Miscellaneous Notes * Telephone Encounter - Tamrea Bhardwaj - 09/09/2022 10:52 AM CDT Patient calling regarding the denial of Olistat. Prescription would be $600 out of pocket & is not affordable for the patient. She would like to know what other options/alternatives she has. Patient stated Geri Gaytan had suggested Marquez. Please advise. [phone] okay to leave VM or send MyChart, patient isn't always able to answer when she's working documented in this encounter Plan of Treatment Not on file documented as of this encounter Visit Diagnoses Not on filedocumented in this encounter Care Teams Senior Military Analyst Relationship Specialty Start [place] [address] [place] [address] PCP - General 08/19/22 10/14/22 Kaykay Duarte POLITICAL CARTOONIST [address] [place] [address] PCP - General 10/15/22 Roderick Morelos MD [address] [place] [address] Cardiovascular Disease 02/03/22 Magno Wood MD [address] [place] [address] Otolaryngology 02/21/22 Sophie Ocasio AuD [address] [place] [address] 15408 Carton Waxing Machine Operator Audiology 02/21/22 Henny Rosales APRN SOLUTIONS MARKET CONSULTANT [address] [place] [address] Assigned Heart and Vascular Provider 08/09/[address] [place] [address] 287325 Registered Dietitian Dietitian, Registered 09/02/22 Christiane Rodríguez MD [address] [place] [address] Otolaryngology 11/12/22 Luis A Escobedo MD [address] [place] [address] 714015 Assigned Surgical Provider 11/01/22 11/28/22 Chely Fernandez PA-C [address] [place] [address] 807265 Assigned Surgical Provider 11/29/22 02/06/23 Jing Cadena APRN FREIGHT CAR LOADER 420 [facility] 450 [place], [place] 008785 Clinical Nurse Specialist Anesthesiology 01/15/23 Radha Lopez, [facility] 909 [place], [place] 539055 Pharmacist Pharmacist 01/16/23 Luis A Escobedo MD 420 [facility] 195 [place], [place] 406865 Assigned Surgical Provider 02/07/23 04/15/23 Geri Loza PA-C 909 [place], [place] 277585 Assigned Surgical Provider 04/16/23 Raina Patterson APRN SOLUTIONS MARKET CONSULTANT [address] [place] 826815 Nurse Practitioner Cardiovascular Disease 05/11/23 documented as of this encounter
--- OUTSIDE RECORDS SUMMARY | 2023-06-30 16:59 | XMS_ITS | Encounter Summary ---
Author Name Unknown Organization [place] Address [address] [place] [address] 23220 Care Team Providers Care Histopathology Technician Name Role Phone Roderick Morelos MD Unavailable [phone] Magno Wood MD Unavailable [phone] Sophie Ocasio Unavailable +[phone] Henny Rosales EMBEDDED SYSTEMS SOFTWARE DEVELOPER COMPENSATION ASSOCIATE Unavailable +[phone] [facility] Primary Care Pr ovider Sharee Negron RD Unavailable Kaykay Duarte STEEL ERECTOR APPRENTICE Primary Care Provider [phone] Christiane Rodríguez MD Unavailable [phone] Luis A Escobedo MD Unavailable +[phone] Chely Fernandez PA-C Unavailable +[phone] Jing Cadena EMBEDDED SYSTEMS SOFTWARE DEVELOPER KOHINOOR OPERATOR Unavailable + [phone] Radha Lopez [facility] Unavailable +[phone] Luis A Escobedo MD Unavailable +[phone] Geri Loza PAEddaC Unavailable [phone] Raina Patterson EMBEDDED SYSTEMS SOFTWARE DEVELOPER COMPENSATION ASSOCIATE Unavailable [phone] Encounter Details Date Type Department Care Team (Late st Contact Info) Description 09/09/2022 MyC Medical Advice [facility] [address]th [place] [address] Tanya Larsen RN Social History [...] on filedocumented in this encounter Care Teams Histopathology Technician Relationship Specialty Start Date End Date Clinic, [place] [address] [place] [address] PCP - General 08/19/22 10/14/22 Kaykay Duarte, STEEL ERECTOR APPRENTICE [address] [place] [address] [place] [address] PCP - General 10/15/22 Roderick Morelos MD [address] [place], [place] 758195 Cardiovascular Disease 02/03/22 Magno Wood MD [address] [place] [address] 396 [place], [place] 212125 Otolaryngology 02/21/22 Sophie Ocasio AuD [address] [place] [address] 214625 Field Artillery Fire Control Man Audiology 02/21/22 Henny Rosales, EMBEDDED SYSTEMS SOFTWARE DEVELOPER COMPENSATION ASSOCIATE [address] [place] [address] [place] [id number] Assigned Heart and Vascular Provider 08/09/[address] 909 [place] [address] Registered Dietitian Dietitian, Registered 09/02/22 Christiane Rodríguez MD 420 [facility] 396 [place], [place] 984445 Otolaryngology 11/12/22 Luis A Escobedo MD [address] [place] [address] 311585 Assigned Surgical Provider 11/01/22 11/28/22 Chely Fernandez PA-C [address] [place] [address] 452665 Assigned Surgical Provider 11/29/22 02/06/23 Jing Cadena, EMBEDDED SYSTEMS SOFTWARE DEVELOPER KOHINOOR OPERATOR [address] [place] [address] 450 [place], [place] 401435 Clinical Nurse Specialist Anesthesiology 01/15/23 Radha Lopez, [facility] [address] [place] [address] 152115 Pharmacist Pharmacist 01/16/23 Luis A Escobedo MD [address] [place] [address] 195 [place], [place] 192615 Assigned Surgical Provider 02/07/23 04/15/23 Geri Loza PA-C 909 [place] [address] Assigned Surgical Provider 04/16/23 Raina Patterson APRN COMPENSATION ASSOCIATE [address] [place] [address] Nurse Practitioner Cardiovascular Disease 05/11/23 documented as of this encounter
--- OUTSIDE RECORDS SUMMARY | 2023-06-30 16:59 | XMS_ITS | Encounter Summary ---
Author Name Unknown Organization [place] Address [address] [place] [address] 09366 Care Team Providers Care Survey Worker Name Role Phone Roderick Morelos MD Unavailable [phone] Magno Wood MD Unavailable [phone] Sophie Ocasio Unavailable +[phone] Henny Rosales VISUAL COMMUNICATIONS INSTRUCTOR COLLEGE ATHLETIC DIRECTOR Unavailable +[phone] [facility] Primary Care Pr ovider Sharee Negron RD Unavailable Kaykay Duarte INSPECTOR BALANCE WHEEL MOTION Primary Care Provider [phone] Christiane Rodríguez MD Unavailable [phone] Luis A Escobedo MD Unavailable +[phone] Chely Fernandez PA-C Unavailable +[phone] Jing Cadena VISUAL COMMUNICATIONS INSTRUCTOR WATER RESOURCES PROGRAM DIRECTOR Unavailable + [phone] Radha Lopez [facility] Unavailable +[phone] Luis A Escobedo MD Unavailable [phone] eGri Loza PAEddaC Unavailable [phone] Raina Patterson VISUAL COMMUNICATIONS INSTRUCTOR COLLEGE ATHLETIC DIRECTOR Unavailable +[phone] Encounter Details Date Type Department Care Team (Late st Contact Info) Description 09/02/2022 MyC Medical Advice [facility] [address] 4th [place] [address] Geri Loza PA-C 909 [place], [place] 581905 Social History Tobacco Use Types Packs/Day Years [...] on filedocumented in this encounter Care Teams Survey Worker Relationship Specialty Start [place] End [place], [place] [address] [place] [address] PCP - General 08/19/22 10/14/22 Kaykay Duarte NP [address] [place] [address] [place] 6[address]87 PCP - General 10/15/22 Roderick Morelos MD [address] [place], [place] 292635 Cardiovascular Disease 02/03/22 Magno Wood MD [address] [place] [address] 396 [place], [place] [phone] Otolaryngology 02/21/22 Sophie Ocasio AuD [address] [place] [address] 601565 Manager Intermediate Audiology 02/21/22 Henny Rosales APRN COLLEGE ATHLETIC DIRECTOR [address] [place] [address] Assigned Heart and Vascular Provider 08/09/[address] [place] [address] Registered Dietitian Dietitian, Registered 09/02/22 Christiane Rodríguez MD [address] [place] [address] 396 [place] [address] Otolaryngology 11/12/22 Luis A Escobedo MD [address] [place] [address] Assigned Surgical Provider 11/01/22 11/28/22 Chely Fernandez PA-C [address] [place] [address] 345795 Assigned Surgical Provider 11/29/22 02/06/23 Jing Cadena APRN WATER RESOURCES PROGRAM DIRECTOR [address] [place] [address] 450 [place] [address] Clinical Nurse Specialist Anesthesiology 01/15/23 Radha Lopez, [facility] [address] [place] [address] Pharmacist Pharmacist 01/16/23 Luis A Escobedo MD 420 [facility] 195 [place], [place] 588225 Assigned Surgical Provider 02/07/23 04/15/23 Geri Loza PA-C 909 [place], [place] 120755 Assigned Surgical Provider 04/16/23 Raina Patterson APRN COLLEGE ATHLETIC DIRECTOR [address] [place], [place] 793145 Nurse Practitioner Cardiovascular Disease 05/11/23 documented as of this encounter
--- OUTSIDE RECORDS SUMMARY | 2023-06-30 16:59 | XMS_ITS | Encounter Summary ---
Author Name Unknown Organization [place] Address [address] [place] [address] 60[address] Care Team Providers Care Personal Protection Specialist Name Role Phone Roderick Morelos MD Unavailable [phone] Magno Wood MD Unavailable [phone] Sophie Ocasio Unavailable +[phone] Henny Rosales SMOKE CONTROL SUPERVISOR CADD DRAFTER Unavailable [phone] [facility] Primary Care Pr ovider Sharee Negron RD Unavailable Kaykay Duarte VEHICLE LEASING AND RENTAL MANAGER Primary Care Provider [phone] Christiane Rodríguez MD Unavailable [phone] Luis A Escobedo MD Unavailable +[phone] Chely Fernandez PA-C Unavailable +[phone] Jing Cadena SMOKE CONTROL SUPERVISOR COREMAKING MACHINE OPERATOR Unavailable + [phone] Radha Lopez [facility] Unavailable +[phone] Luis A Escobedo MD Unavailable +[phone] Geri Loza PAEddaC Unavailable [phone] Raina Patterson SMOKE CONTROL SUPERVISOR CADD DRAFTER Unavailable +[phone] Encounter Details Date Type Department Care Team (Late st Contact Info) Description 09/02/2022 MyC Medical Advice [facility] [address] 4th [place] [address] Geri Loza PA-C 909 [place], [place] 310045 Social History Tobacco Use Types Packs/Day Years [...] on filedocumented in this encounter Care Teams Personal Protection Specialist Relationship Specialty Start Date End Date Clinic, [place] [address] [place] [address] PCP - General 08/19/22 10/14/22 Kaykay Duarte NP [address] [place] [address] [place] 609647 PCP - General 10/15/22 Roderick Morelos MD [address] [place], [place] 272935 Cardiovascular Disease 02/03/22 Magno Wood MD [address] [place] [address] 396 [place], [place] 71631455 Otolaryngology 02/21/22 Sophie Ocasio AuD [address] [place] [address] 662325 Quality Assurance Project Manager Audiology 02/21/22 Henny Rosales APRN CADD DRAFTER [address] [place] [address]388[address] Assigned Heart and Vascular Provider 08/09/[address] [place] [address] Registered Dietitian Dietitian, Registered 09/02/22 Christiane Rodríguez MD [address] [place] [address] 396 [place] [address] Otolaryngology 11/12/22 Luis A Escobedo MD [address] [place] [address] Assigned Surgical Provider 11/01/22 11/28/22 Chely Fernandez PA-C [address] [place] [address] 729635 Assigned Surgical Provider 11/29/22 02/06/23 Jing Cadena APRN COREMAKING MACHINE OPERATOR [address] [place] [address] 450 [place] [address] Clinical Nurse Specialist Anesthesiology 01/15/23 Radha Lopez, [facility] [address] [place] [address] Pharmacist Pharmacist 01/16/23 Luis A Escobedo MD 420 [facility] 195 [place], [place] 427565 Assigned Surgical Provider 02/07/23 04/15/23 Geri Loza PA-C 909 [place], [place] 195575 Assigned Surgical Provider 04/16/23 Raina Patterson APRN CADD DRAFTER [address] [place], [place] 013485 Nurse Practitioner Cardiovascular Disease 05/11/23 documented as of this encounter
--- OUTSIDE RECORDS SUMMARY | 2023-06-30 16:59 | XMS_ITS | Encounter Summary ---
Author Name Unknown Organization [facility] Address [address] [place] [address] 00671 Care Team Providers Care Occupational Health Nurse Manager Name Role Phone Roderick Morelos MD Unavailable [phone] Magno Wood MD Unavailable [phone] Sophie Ocasio Unavailable +[phone] Henny Rosales FINANCIAL ADVISOR TRAINEE HURRICANE TRACKER Unavailable +[phone] [facility] Primary Care Pr ovider Sharee Negron RD Unavailable Kaykay Duarte CAR REPAIRER Primary Care Provider [phone] Christiane Rodríguez MD Unavailable [phone] Luis A Escobedo MD Unavailable +[phone] Chely Fernandez PA-C Unavailable +[phone] Jing Cadena FINANCIAL ADVISOR TRAINEE GAS APPLIANCE SERVICER Unavailable + [phone] Radha Lopez [facility] Unavailable +[phone] Luis A Escobedo MD Unavailable +[phone] Geri Loza PAEddaC Unavailable +[phone] Raina Patterson FINANCIAL ADVISOR TRAINEE HURRICANE TRACKER Unavailable +[phone] Encounter Details Date Type Department Care Team (Late st Contact Info) Description 09/02/2022 [facility] [address] [place] [address] Kang Griffiths Social History Tobacco [...] on filedocumented in this encounter Care Teams Occupational Health Nurse Manager Relationship Specialty Start [place] [address] [place] [address] PCP - General 08/19/22 10/14/22 Kaykay Duarte NP [address] [place] [address] [place] [address] PCP - General 10/15/22 Roderick Morelos MD [address] [place], [place] 983325 Cardiovascular Disease 02/03/22 Magno Wood MD [address] [place] [address] 396 [place], [place] 903455 Otolaryngology 02/21/22 Sophie Ocasio, AuD [address] [place] [address]77 [facility] 02/21/22 Henny Rosales, FINANCIAL ADVISOR TRAINEE HURRICANE TRACKER [address] [place] [address] Assigned Heart and Vascular Provider 08/09/[address] [place] [address] 562975 Registered Dietitian Dietitian, Registered 09/02/22 Christiane Rodríguez MD [address] [place] [address] 396 [place], [place] 170505 Otolaryngology 11/12/22 Luis A Escobedo MD [address] [place] [address] 635185 Assigned Surgical Provider 11/01/22 11/28/22 Chely Fernandez PA-C [address] [place] [address] 026915 Assigned Surgical Provider 11/29/22 02/06/23 Jing Cadena, FINANCIAL ADVISOR TRAINEE GAS APPLIANCE SERVICER [address] [place] [address] 450 [place], [place] 675065 Clinical Nurse Specialist Anesthesiology 01/15/23 Radha Lopez [facility] [address] [place] [address] 353435 Pharmacist Pharmacist 01/16/23 Luis A Escobedo MD [address] [place] [address] 195 [place] [address] Assigned Surgical Provider 02/07/23 04/15/23 Geri Loza PA-C 9 [place] [address] Assigned Surgical Provider 04/16/23 Raina Patterson APRN [facility] [address] [facility] [address] [place] [address] Nurse Practitioner Cardiovascular Disease 05/11/23 documented as of this encounter
--- OUTSIDE RECORDS SUMMARY | 2023-06-30 16:59 | XMS_ITS | Encounter Summary ---
Author Name Unknown Organization [facility] Address [address] [place] [address] Care Team Providers Care Multiplex Operator Name Role Phone [facility] Primary Care Provider Unavailable Roderick Morelos MD Unavailable [phone] Roderick Morelos MD Unavailable Magno Wood MD Unavailable +[phone] Sophie Ocasio AuD Unavailable +[phone] Parth Ellis MD Unavailable +[phone] Roderick Morelos MD Unavailable [phone] Henny Rosales APRN SQUAD SERGEANT Unavailable +[phone] [facility] Jovanna Mcconnell Primary Care Pr ovider Sharee Negron RD Unavailable Kaykay Duarte FREELANCE ART DIRECTOR Primary Care Provider Christiane Rodríguez MD Unavailable + [phone] Luis A Escobedo MD Unavailable +[phone] Chely Fernandez PA-C Unavailable +[phone] Jing Cadena COLLEGE RECRUITER ADJUNCT FACULTY Unavailable + [phone] Radha Lopez [facility] Unavailable [phone] Luis A Escobedo MD Unavailable Geri Loza PA-C Unavailable Raina Patterson APRN SQUAD SERGEANT Unavailable Encounter Details Date Type Department Care Team (Late st Contact Info) Description 04/08/2022 [facility] [address] [facility] [address] [place] [phone] Suha Wade, RN Social History Tobacco Use [...] Coronavirus/COVID-19? No / Unsure 04/09/2022 6:32 AM DINING ROOM TABLES SET UP ATTENDANT documented as of this encounter Plan of Treatment Not on file documented as of this encounter Visit Diagnoses Not on filedocumented in this encounter Care Teams Multiplex Operator Relationship Specialty Start Date End Date Ernestina Martini PCP - General Family Practice 10/12/19 08/18/22 [facility] [place] [address] [place] [address] PCP - General 08/19/22 10/14/22 Kaykay Duarte FREELANCE ART DIRECTOR [address] [place] [address] PCP - General 10/15/22 Roderick Morelos MD [address] [place] [address] Cardiovascular Disease 02/03/22 Roderick Morelos MD [address] [place] [address] Assigned Heart and Vascular Provider 02/15/22 07/18/22 Magno Wood MD [address] [place] [address] Otolaryngology 02/21/22 Sophie Ocasio AuD [address] [place] [address] 958385 Associate Agent Insurance Sales Audiology 02/21/22 Parth Ellis MD [address] [place] 563695 Assigned Heart and Vascular Provider 07/19/22 07/25/22 Roderick Morelos MD [address] [place] [address] Assigned Heart and Vascular Provider 07/26/22 08/08/22 Henny Rosales, COLLEGE RECRUITER SQUAD SERGEANT [address] [place] [phone] Assigned Heart and Vascular Provider 08/09/22 Sharee Negron, ÁNGEL [address] [place] [address] 900805 Registered Dietitian Dietitian, Registered 09/02/22 Christiane Rodríguez MD [address] [place] [address] 789155 Otolaryngology 11/12/22 Luis A Escobedo MD [address] 940885 Assigned Surgical Provider 11/01/22 11/28/22 Chely Fernandez PA-C 909 [place], [place] 557535 Assigned Surgical Provider 11/29/22 02/06/23 Jing Cadena APRN ADJUNCT FACULTY [address] 172455 Clinical Nurse Specialist Anesthesiology 01/15/23 Radha Lopez, [facility] [address] [place] [address] 555095 Pharmacist Pharmacist 01/16/23 Luis A Escobedo MD [address] [address] Assigned Surgical Provider 02/07/23 04/15/23 Geri Loza PA-C [address] [place] [address]69 Assigned Surgical Provider 04/16/23 Raina Patterson APRN SQUAD SERGEANT [address] [place] 838455 Nurse Practitioner Cardiovascular Disease 05/11/23 documented as of this encounter
--- OUTSIDE RECORDS SUMMARY | 2023-06-30 16:59 | XMS_ITS | Encounter Summary ---
Author Name Unknown Organization [facility] Address [address] [place] [address] Care Team Providers Care Extension Agent Name Role Phone [facility] [place] Primary Care Provider Unavailable Roderick Morelos MD Unavailable [phone] Magno Wood MD Unavailable [phone] Sophie Ocasio Unavailable +[phone] Henny Rosales BUN MACHINE OPERATOR ORTHOTIST Unavailable [phone] [facility] [place] Primary Care Pr ovider Sharee Negron RD Unavailable Kaykay Duarte PIPE INSPECTOR Primary Care Provider [phone] Christiane Rodríguez MD Unavailable + [phone] Luis A Escobedo MD Unavailable +[phone] Chely FernandezC Unavailable +[phone] Jing Cadena BUN MACHINE OPERATOR SCIENCE TECHNICIAN Unavailable + [phone] Radha Lopez [facility] Unavailable +[phone] Luis A Escobedo MD Unavailable +[phone] Geri Loza PAEddaC Unavailable [phone] Raina Patterson BUN MACHINE OPERATOR ORTHOTIST Unavailable [phone] Encounter Details Date Type Department Care Team (Late st Contact Info) Description 08/16/2022 [facility] [address] 4th [place] [address] Kang Griffiths Social History Tobacco [...] on filedocumented in this encounter Care Teams Extension Agent Relationship Specialty Start Date End Date Ernestina Martini PCP - General Family Practice 10/12/19 08/18/22 [facility], [place] [address] [place] [address] PCP - General 08/19/22 10/14/22 [place] [address] [place] [address] PCP - General 10/15/22 Roderick Morelos MD [address] [place] [address] Cardiovascular Disease 02/03/22 Magno Wood MD [address] [facility] 396 [place], [place] 414865 Otolaryngology 02/21/22 Sophie Ocasio AuD 9 [place], [place] 037845 Assistant Boiler Operator Audiology 02/21/22 Henny Rosales APRN ORTHOTIST [address] [place] [phone] Assigned Heart and Vascular Provider 08/09/[address] [place] [address] 076065 Registered Dietitian Dietitian, Registered 09/02/22 Christiane Rodríguez MD [address] [place] [address] 396 [place] [address] Otolaryngology 11/12/22 Luis A Escobedo MD 420 [facility] 195 [place] [address] Assigned Surgical Provider 11/01/22 11/28/22 Chely Fernandez PA-C [address] [place] [address] 837295 Assigned Surgical Provider 11/29/22 02/06/23 Jing Cadena APRN SCIENCE TECHNICIAN 420 [facility] 450 [place] [address] Clinical Nurse Specialist Anesthesiology 01/15/23 Radha Lopez [facility] [address] [place] [address] 446725 Pharmacist Pharmacist 01/16/23 Luis A Escobedo MD 420 [facility] 195 [place], [place] 726805 Assigned Surgical Provider 02/07/23 04/15/23 Geri Loza PA-C 909 [place], [place] 595315 Assigned Surgical Provider 04/16/23 Raina Patterson APRN ORTHOTIST [address] [place], [place] 674555 Nurse Practitioner Cardiovascular Disease 05/11/23 documented as of this encounter
--- OUTSIDE RECORDS SUMMARY | 2023-06-30 16:59 | XMS_ITS | Encounter Summary ---
Author Name Unknown Organization [facility] Address [address] [place] [address]89 Care Team Providers Care Metal Sprayer Name Role Phone Roderick Morelos MD Unavailable Magno Wood MD Unavailable [phone] Sophie Ocasio Unavailable [phone] Henny Rosales FURNITURE UPHOLSTERY MECHANIC ARTIFICIAL LIMB FITTER Unavailable [phone] [facility] Primary Care Pr ovider Sharee Negron RD Unavailable Kaykay Duarte INSTRUCTIONAL DESIGN SPECIALIST Primary Care Provider [phone] Christiane Rodríguez MD Unavailable [phone] Luis A Escobedo MD Unavailable +[phone] Chely Fernandez PA-C Unavailable +[phone] Jing Cadena FURNITURE UPHOLSTERY MECHANIC COMPUTER REPAIRER Unavailable + [phone] Radha Lopez [facility] Unavailable +[phone] Luis A Escobedo MD Unavailable [phone] Geri Loza PAEddaC Unavailable [phone] Raina Patterson FURNITURE UPHOLSTERY MECHANIC ARTIFICIAL LIMB FITTER Unavailable +[phone] Encounter Details Date Type Department Care Team (Late st Contact Info) Description 08/19/2022 [facility] Medical Advice [facility] [address] [place] [address] Tanya Larsen RN Social History [...] on filedocumented in this encounter Care Teams Metal Sprayer Relationship Specialty Start Date End [place], [place] [address] [place] [address] PCP - General 08/19/22 10/14/22 Kaykay Duarte INSTRUCTIONAL DESIGN SPECIALIST [address] [place] [address] [place] [address] PCP - General 10/15/22 Roderick Morelos MD [address] [place], [place] 694435 Cardiovascular Disease 02/03/22 Magno Wood MD [address] [place] [address] 396 [place], [place] 881105 Otolaryngology 02/21/22 Sophie Ocasio, AuD [address] [place] [address] 997775 [facility] Audiology 02/21/22 Henny Rosales, FURNITURE UPHOLSTERY MECHANIC ARTIFICIAL LIMB FITTER [address] [place] [address] Assigned Heart and Vascular Provider 08/09/[address] [place] [address] 479565 Registered Dietitian Dietitian, Registered 09/02/22 Christiane Rodríguez MD [address] [place] [address] 396 [place], [place] 048525 Otolaryngology 11/12/22 Luis A Escobedo MD [address] [place] [address] 195 [place], [place] 165595 Assigned Surgical Provider 11/01/22 11/28/22 Chely Fernandez PA-C [address] [place] [address] 997975 Assigned Surgical Provider 11/29/22 02/06/23 Jing Cadena, FURNITURE UPHOLSTERY MECHANIC COMPUTER REPAIRER 420 [facility] 450 [place], [place] 680065 Clinical Nurse Specialist Anesthesiology 01/15/23 Radha Lopez [facility] [address] [place] [address] 103565 Pharmacist Pharmacist 01/16/23 Luis A Escobedo MD [address] [place] [address] 195 [place] [address] Assigned Surgical Provider 02/07/23 04/15/23 Geri Loza PA-C 9 [place] [address] Assigned Surgical Provider 04/16/23 Raina Patterson APRN [facility] [address] [place] [address] Nurse Practitioner Cardiovascular Disease 05/11/23 documented as of this encounter
--- OUTSIDE RECORDS SUMMARY | 2023-06-30 16:59 | XMS_ITS | Encounter Summary ---
Author Name Unknown Organization [facility] Address [address] [place] [address] Care Team Providers Care Audiologist Name Role Phone Barrington Agudelo PA-C Primary Care Provider + [phone] Magno Wood MD Unavailable [phone] [facility] [place] Primary Care Provider Unavailable Parth Ellis MD Unavailable +[phone] Tati Ayala MD Unavailable [phone] Khris Butt MD Unavailable +[phone] MorelosRoderick nunes MD Unavailable [phone] Roderick Morelos MD Unavailable [phone] Magno Wood MD Unavailable [phone] Sophie Ocasio Unavailable +[phone] Parth Ellis MD Unavailable +[phone] MorelosRoderick nunes MD Unavailable [phone] Henny Rosales APRN HOME SUPPORT WORKER Unavailable [phone] [facility] [place] Nugent [place] Primary Care Pr ovider Sharee Negron RD Unavailable Kaykay Duarte PATENT CLERK Primary Care Provider [phone] Christiane Rodríguez MD Unavailable +[phone] Luis A Escobedo MD Unavailable + [phone] Chely Fernandez PA-C Unavailable +[phone] Cadena Jing Susie FUENTES OUTSOLE BEVELER Unavailable + [phone] Radha Lopez [facility] Unavailable [phone] Luis A Escobedo MD Unavailable +[phone] Geri Loza PA-C Unavailable +[phone] Yesenia Raina FUENTES HOME SUPPORT WORKER Unavailable [phone] Encounter Details Date Type Department Care Team (Late st Contact Info) Description 05/07/2011 Office Visit-[facility] [address] [facility] [address] [place] [phone] Reji Li MD [address] [facility] [address] [place] [address] Social History Tobacco Use Types [...] old Referring Physician: BARR[place] LARA Referring Clinic: [facility] CURRENT DIAGNOSES 1. - Hypercholesterolemia, [...] was 287. ALT was 17. From her tailor's aide, her electrolytes in October werenormal. 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; Residence - lives with and children; Place of - [place]; Hours Worked - 30 hours per week; [...] Rule Out COVID-19 03/19/2020 03/19/202003/1903/19/2020 6:22 PM DIRECTOR OF EARLY CHILDHOOD COVID-19 03/19/2020 03/19/2020 04/09/2020 11:3 9 PM DIRECTOR OF EARLY CHILDHOOD Rule Out COVID-19 06/19/2021 06/19/2021 06/19/2021 1:37 AM CDT Rule Out COVID-19 10/29/2021 10/29/2021 10/29/2021 1:07 AM CDT documented as of this encounter Care Teams Audiologist Relationship Specialty Start Date End Date Barrington Agudelo PA-C [facility] [address] [place] [address] PCP - General 05/04/12 10/11/19 Ernestina Martini [address] [place] [address] [facility] 396 [place] [address] PCP - General Family Practice 10/12/19 08/18/22 [facility] [place] [address] [place], [place] 881957 PCP - General 08/19/22 10/14/22 [place] [address] [place], [place] 664387 PCP - General 10/15/22 Magno Wood MD [address] 886425 Otolaryngology 05/29/15 08/02/17 Parth Ellis MD [address] [place] [place] 051735 Assigned Heart and Vascular Provider 01/13/20 12/13/21 Tati Ayala MD [address] [place], [place] 818740 Assigned Endocrinology Provider 01/13/20 12/29/20 Khris Butt MD [address] [place] [address] Assigned Heart and Vascular Provider 12/14/21 02/14/22 Roderick Morelos MD [address] [place] [address] MD Cardiovascular Disease 02/03/22 Roderick Morelos MD [address] [place] [address] Assigned Heart and Vascular Provider 02/15/22 07/18/22 Magno Wood MD [address] [place] [address] 636505 Otolaryngology 02/21/22 Sophie Ocasio AuD [address] [place] [address] 613645 Morning Show Newscast Producer Audiology 02/21/22 Parth Ellis MD [address] [place] [address] Assigned Heart and Vascular Provider 07/19/22 07/25/22 Roderick Morelos MD [address] [place] [address] Assigned Heart and Vascular Provider 07/26/22 08/08/22 Henny Rosales, STORE ASSISTANT HOME SUPPORT WORKER [address] [place] [address] Assigned Heart and Vascular Provider 08/09/[address]09 [place], [place] 153305 Registered Dietitian Dietitian, Registered 09/02/22 Christiane Rodríguez MD 420 [facility] 396 [place], [place] 936935 Otolaryngology 11/12/22 Luis A Escobedo MD [address] [place] [address] 584105 Assigned Surgical Provider 11/01/22 11/28/22 Chely Fernandez PA-C [address] [place] [address] 346975 Assigned Surgical Provider 11/29/22 02/06/23 Jing Cadena, STORE ASSISTANT OUTSOLE BEVELER [address] [place] [address] 450 [place], [place] 997315 Clinical Nurse Specialist Anesthesiology 01/15/23 Radha Lopez, [facility] [address] [place] [address] 218945 Pharmacist Pharmacist 01/16/23 Luis A Escobedo MD [address] [place] [address] 195 [place], [place] 203515 Assigned Surgical Provider 02/07/23 04/15/23 Geri Loza PA-C [address] [place] [address] Assigned Surgical Provider 04/16/23 Raina Patterson APRN HOME SUPPORT WORKER [address] [place] [address] Nurse Practitioner Cardiovascular Disease 05/11/23 documented as of this encounter
--- OUTSIDE RECORDS SUMMARY | 2023-06-30 16:59 | XMS_ITS | Encounter Summary ---
Author Name Unknown Organization [facility] Address [address] [place] [address] Care Team Providers Care Contact Lens Molder Name Role Phone Roderick Morelos MD Unavailable [phone] Magno Wood MD Unavailable [phone] Sophie Ocasio Unavailable +[phone] Henny Rosales COUNTY ADMINISTRATOR FOOD CHEMIST Unavailable +[phone] [facility] Primary Care Pr ovider Sharee Negron RD Unavailable Kaykay Duarte ASSISTANT COUNTY ENGINEER Primary Care Provider [phone] Christiane Rodríguez MD Unavailable [phone] Luis A Escobedo MD Unavailable +[phone] Chely Fernandez PA-C Unavailable +[phone] Jing Cadena COUNTY ADMINISTRATOR YARD GENERAL CAR SUPERVISOR Unavailable + [phone] Radha Lopez [facility] Unavailable +[phone] Luis A Escobedo MD Unavailable +[phone] Geri Loza PAEddaC Unavailable +[phone] Raina Patterson COUNTY ADMINISTRATOR FOOD CHEMIST Unavailable +[phone] Encounter Details Date Type Department Care Team (Late st Contact Info) Description 08/19/2022 Telephone [facility] [place] [address] [place] [address] 4th [place] [address] Geri Loza PA-C 909 [place] [address] Social History Tobacco Use Types Packs/Day Years [...] her insurance won't pay for them at [facility] and she needs the lab orders sent to [facility] in [place]. Please send myc msg to pt once lab orders sent. documented in this encounter Plan of Treatment Not on file documented as of this encounter Visit Diagnoses Not on filedocumented in this encounter Care Teams Contact Lens Molder Relationship Specialty Start Date End [place], [place] [address] [place], [place] 437397 PCP - General 08/19/22 10/14/22 [place] [address] [place] [address] PCP - General 10/15/22 Roderick Morelos MD [address] [place] [address] Cardiovascular Disease 02/03/22 Magno Wood MD [address] [place] [address] 396 [place] [address] Otolaryngology 02/21/22 Sophie Ocasio AuD [address] [place] [address] 287175 Crystal Machining Coordinator Audiology 02/21/22 Henny Rosales APRN FOOD CHEMIST [address] [place] [address] Assigned Heart and Vascular Provider 08/09/[address] [place] [address] [phone] Registered Dietitian Dietitian, Registered 09/02/22 Christiane Rodríguez MD [address] [place] [address] 209375 Otolaryngology 11/12/22 Luis A Escobedo MD [address] [place] [address] 668455 Assigned Surgical Provider 11/01/22 11/28/22 Chely Fernandez PA-C [address] [place] [address] 880835 Assigned Surgical Provider 11/29/22 02/06/23 Jing Cadena APRN YARD GENERAL CAR SUPERVISOR 420 [facility] 450 [place], [place] 223325 Clinical Nurse Specialist Anesthesiology 01/15/23 Radha Lopez, [facility] 909 [place], [place] 972675 Pharmacist Pharmacist 01/16/23 Luis A Escobedo MD 420 [facility] 195 [place], [place] 700975 Assigned Surgical Provider 02/07/23 04/15/23 Geri Loza PA-C 909 [place], [place] 086795 Assigned Surgical Provider 04/16/23 Raina Patterson, GINA FOOD CHEMIST [address] [place] 117845 Nurse Practitioner Cardiovascular Disease 05/11/23 documented as of this encounter
--- OUTSIDE RECORDS SUMMARY | 2023-06-30 16:59 | XMS_ITS | Encounter Summary ---
Author Name Unknown Organization [place] Address [address] [place] [address] 26135 Care Team Providers Care Occup Ther Name Role Phone Roderick Morelos MD Unavailable [phone] Magno Wood MD Unavailable [phone] Sophie Ocasio AuD Unavailable [phone] Henny Rosales MINING SPECULATOR CARDROOM WORKER Unavailable +[phone] [facility] Primary Care Pr ovider Sharee Negron RD Unavailable Kaykay Duarte HUB LEAD Primary Care Provider Christiane Rodríguez MD Unavailable +[phone] Luis A Escobedo MD Unavailable +[phone] Chely Fernandez PA-C Unavailable +[phone] Jing Cadena MINING SPECULATOR CLINICAL DOCUMENTATION NURSE Unavailable + [phone] Radha Lopez [facility] Unavailable [phone] Luis A Escobedo MD Unavailable +[phone] Encounter Details Date Type Department Care Team (Late st Contact Info) Description 09/04/2022 Telephone [facility] Weight Management [place] 0610[address] [facility] 4th [place] [address] Geri Loza PA-C 909 [place] [address] Social History Tobacco Use Types Packs/Day Years [...] PM CDT Phone (Incoming) Billie Connolly (Self) [phone] (M) Reason for Call: Prior Auth questions What are your questions or concerns: Pt states her ins has not received pa from clinic yet Could we send this information to you in [facility] or would you prefer to receive a phone call?: Patient would prefer a phone call Okay to leave a detailed message?: Yes at Cell number on file: Telephone Information: documented in this encounter Plan of Treatment Not on file documented as of this encounter Visit Diagnoses Not on filedocumented in this encounter Care Teams Occup Ther Relationship Specialty Start Date [place] [address] [place] [address] PCP - General 08/19/22 10/14/22 [place] [address] [place] [address] PCP - General 10/15/22 Roderick Morelos MD [address] [place], [place] 308185 Cardiovascular Disease 02/03/22 Magno Wood MD [address] [place] [address] 117445 Otolaryngology 02/21/22 Sophie Ocasio AuD [address] [place] [address] 151915 Basic Sciences Professor Audiology 02/21/22 Henny Rosales APRN CARDROOM WORKER [address] [place] [address] Assigned Heart and Vascular Provider 08/09/[address] [place] [address] 552535 Registered Dietitian Dietitian, Registered 09/02/22 Christiane Rodríguez MD [address] [place] [address] [phone] Otolaryngology 11/12/22 Luis A Escobedo MD [address] 709695 Assigned Surgical Provider 11/01/22 11/28/22 Chely Fernandez PA-C [address] [place] [address] 393665 Assigned Surgical Provider 11/29/22 02/06/23 Jing Cadena, MINING SPECULATOR CLINICAL DOCUMENTATION NURSE [address] [place] [address] Clinical Nurse Specialist Anesthesiology 01/15/23 Radha Lopez [facility] [address] [place] [address] [phone] Pharmacist Pharmacist 01/16/23 Luis A Escobedo MD [address] [id number] Assigned Surgical Provider 02/07/23 04/15/23 documented as of this encounter
--- OUTSIDE RECORDS SUMMARY | 2023-06-30 16:59 | XMS_ITS | Encounter Summary ---
Author Name Unknown Organization [facility] Address [address] [place] [address] 69856 Care Team Providers Care Habilitation Training Specialist Name Role Phone Barrington Agudelo PA-C Primary Care Provider + [phone] Magno Wood MD Unavailable [phone] [place] Nugent [place]ord Primary Care Provider Unavailable Parth Ellis MD Unavailable +[phone] Tati Ayala MD Unavailable [phone] Khris Butt MD Unavailable +[phone] MorelosRoderick nunes MD Unavailable [phone] Roderick Morelos MD Unavailable [phone] Magno Wood MD Unavailable [phone] Sophie Ocasio Unavailable +[phone] Parth Ellis MD Unavailable +[phone] MorelosRoderick nunes MD Unavailable +[phone] Henny Rosales APRN TAXI DANCER Unavailable +[phone] [facility] [place] Nugent [place] Primary Care Pr ovider Sharee Negron RD Unavailable Kayaky Duarte CRANE SERVICE TECHNICIAN Primary Care Provider [phone] Christiane Rodríguze MD Unavailable +[phone] Luis A Escobedo MD Unavailable + [phone] Chely Fernandez PA-C Unavailable +[phone] Cadena Jing Susie FUENTES BACK TUFTER Unavailable + [phone] Radha Lopez [facility] Unavailable [phone] Luis A Escobedo MD Unavailable +[phone] Geri Loza PA-C Unavailable +[phone] Raina Patterson GINA TAXI DANCER Unavailable +[phone] Encounter Details Date Type Department Care Team (Late st Contact Info) Description 08/21/2011 Office Visit-[facility] Heart [address] [place] [phone] Dane Rosa MD Social History Tobacco Use [...] old Referring Physician: BARRINGTON LARA Referring Clinic: [facility] CURRENT DIAGNOSES 1. - Hypercholesterolemia, 272.0 2. [...] Mother - Age 34, cancer-breast; Half-Brother - OR; Sister 1 - CAD; SOCIAL HISTORY Alcohol [...] Out COVID-19 03/19/2020 03/19/2020 03/19/2020 6:22 PM ROOM SERVICE ATTENDANT COVID-19 03/19/2020 03/19/2020 04/09/2020 11:3 9 PM ROOM SERVICE ATTENDANT Rule Out COVID-19 06/19/2021 06/19/2021 06/19/2021 1:37 AM CDT Rule Out COVID-19 10/29/2021 10/29/2021 10/29/2021 1:07 AM CDT documented as of this encounter Care Teams Habilitation Training Specialist Relationship Specialty Start Date End Date Barrington Agudelo PA-C [facility] [address] [id number] PCP - General 05/04/12 10/11/19 [place]ina Martini 420 [facility] 396 [place] [address] PCP - General Family Practice 10/12/19 08/18/22 [facility] [place], [place] [address] [facility] [place] [address] PCP - General 08/19/22 10/14/22 [place] [address] [place] [address] PCP - General 10/15/22 Magno Wood MD 420 [facility] 396 [place], [place] 248915 Otolaryngology 05/29/15 08/02/17 Parth Ellis MD [address] [place] 233075 Assigned Heart and Vascular Provider 01/13/20 12/13/21 Tati Ayala MD [address] [facility] 200 [place], [place] 375260 Assigned Endocrinology Provider 01/13/20 12/29/20 Khris Butt MD [address] [place] 758875 Assigned Heart and Vascular Provider 12/14/21 02/14/22 Roderick Morelos MD [address] [place] 222315 Cardiovascular Disease 02/03/22 Roderick Morelos MD [address] [place] 978635 Assigned Heart and Vascular Provider 02/15/22 07/18/22 Magno Wood MD [address] [place] [address] 193265 Otolaryngology 02/21/22 Sophie Ocasio AuD [address] [place] [address] 370785 Lockstitch Front Maker Audiology 02/21/22 Parth Ellis MD [address] [place], [place] 587175 Assigned Heart and Vascular Provider 07/19/22 07/25/22 Roderick Morelos MD [address] [place], [place] 911165 Assigned Heart and Vascular Provider 07/26/22 08/08/22 Henny Rosales APRN TAXI DANCER [address] [place] [phone] Assigned Heart and Vascular Provider 08/09/[address] [place] [address] 223835 Registered Dietitian Dietitian, Registered 09/02/22 Christiane Rodríguez MD [address] [place] [address] 258145 Otolaryngology 11/12/22 Luis A Escobedo MD [address] [place] [address] 45363 Assigned Surgical Provider 11/01/22 11/28/22 Chely Fernandez PA-C 909 [place] [address] Assigned Surgical Provider 11/29/22 02/06/23 Jing Cadena APRN BACK TUFTER 420 [facility] 450 [place], [place] 759475 Clinical Nurse Specialist Anesthesiology 01/15/23 Radha Lopez [facility] [address] [place] [address] 939215 Pharmacist Pharmacist 01/16/23 Luis A Escobedo MD [address] [place] [address] 195 [place] [address] Assigned Surgical Provider 02/07/23 04/15/23 Geri Loza PA-C [address] [place] [address] 14572 Assigned Surgical Provider 04/16/23 Raina Patterson APRN TAXI DANCER [address] [facility] [address] [place] 571775 Nurse Practitioner Cardiovascular Disease 05/11/23 documented as of this encounter
--- OUTSIDE RECORDS SUMMARY | 2023-06-30 16:59 | XMS_ITS | Encounter Summary ---
Author Name Unknown Organization [facility] Address [address] [place] [address] 61463 Care Team Providers Care Geospatial Systems Integrator Name Role Phone Roderick Morelos MD Unavailable [phone] Magno Wood MD Unavailable [phone] Sophie Ocasio AuD Unavailable +[phone] Henny Rosales HOME SUPPORT WORKER ELECTRICAL ENGINEERING MANAGER Unavailable [phone] [facility] Primary Care Pr ovider Sharee Negron RD Unavailable Kaykay Duarte WASTE WATER PLANT OPERATOR Primary Care Provider Christiane Rodríguez MD Unavailable [phone] Luis A Escobedo MD Unavailable +[phone] Chely Fernandez PA-C Unavailable +[phone] Jing Cadena HOME SUPPORT WORKER PROMOTIONS TEAM LEADER Unavailable [phone] Radha Lopez [facility] Unavailable [phone] Luis A Escobedo MD Unavailable +[phone] Encounter Details Date Type Department Care Team (Late st Contact Info) Description 09/03/2022 [facility] General Surgery [place] 658859 [facility] 4th [place] [phone] Luis A Escobedo MD [address] [place] [address] [facility] 195 [place], [place] 155575 Social History Tobacco Use Types Packs/Day Years [...] on filedocumented in this encounter Care Teams Geospatial Systems Integrator Relationship Specialty Start [place] End [place] [address] [facility] [place] [address] PCP - General 08/19/22 10/14/22 Kaykay Duarte [place] [address] [place] [address] [place] [address] PCP - General 10/15/22 Roderick Morelos MD [address] [place] [address] Cardiovascular Disease 02/03/22 Magno oWod MD [address] [place] [address] 396 [place], [place] 429905 Otolaryngology 02/21/22 Sophie Ocasio AuD [address] [place] [address] 068135 Global Position System Technician Audiology 02/21/22 Henny Rosales APRN ELECTRICAL ENGINEERING MANAGER [address] [place] [phone] Assigned Heart and Vascular Provider 08/09/[address] [place] [address] 398205 Registered Dietitian Dietitian, Registered 09/02/22 Christiane Rodríguez MD [address] [place] [address] 082305 Otolaryngology 11/12/22 Luis A Escobedo MD [address] [place] [address] 420785 Assigned Surgical Provider 11/01/22 11/28/22 Chely Fernandez PA-C [address] [place] [address] 991635 Assigned Surgical Provider 11/29/22 02/06/23 Jing Cadena APRN PROMOTIONS TEAM LEADER [address] [place] [address] 995385 Clinical Nurse Specialist Anesthesiology 01/15/23 Radha Lopez [facility] [address] [place] [address] 803665 Pharmacist Pharmacist 01/16/23 Luis A Escobedo MD 420 [facility] 195 [place], [place] [phone] Assigned Surgical Provider 02/07/23 04/15/23 documented as of this encounter
--- OUTSIDE RECORDS SUMMARY | 2023-06-30 16:59 | XMS_ITS | Encounter Summary ---
Author Name Unknown Organization [facility] Address [address] [place] [address] 01526 Care Team Providers Care Dsp Engineer Name Role Phone [facility] Primary Care Provider Unavailable Roderick Morelos MD Unavailable [phone] Roderick Morelos MD Unavailable [phone] Magno Wood MD Unavailable [phone] Sophie Ocasio AuD Unavailable [phone] Parth Ellis MD Unavailable [phone] Roderick Morelos MD Unavailable [phone] Henny Rosales APRN CHIEF DEVELOPMENT OFFICER Unavailable [phone] [facility] [place] Primary Care Pr ovider Sharee Negron RD Unavailable Kaykay Duarte PHYSICIAN SUPPORT COORDINATOR Primary Care Provider [phone] Christiane Rodríguez MD Unavailable + [phone] Luis A Escobedo MD Unavailable +[phone] Chely Fernandez PA-C Unavailable +[phone] Jing Cadena SPINE SPECIALIST MILK RUNNER Unavailable + [phone] Radha Lopez [facility] Unavailable [phone] Luis A Escobedo MD Unavailable Geri Loza PA-C Unavailable [phone] Raina Patterson APRN CHIEF DEVELOPMENT OFFICER Unavailable [phone] Encounter Details Date Type Department Care Team (Late st Contact Info) Description 05/14/2022 [facility] [address] 4th [place] [address] Jessi Mantilla LPN Social History [...] on filedocumented in this encounter Care Teams Dsp Engineer Relationship Specialty Start Date End Date [place] Martini PCP - General Family Practice 10/12/19 08/18/22 [facility] [place], [place] [address] [place] [address] PCP - General 08/19/22 10/14/22 [place] [address] [place] [address] PCP - General 10/15/22 Roderick Morelos MD [address] [place] 566995 Cardiovascular Disease 02/03/22 Roderick Morelos MD [address] [place] [address] Assigned Heart and Vascular Provider 02/15/22 07/18/22 Magno Wood MD 420 [facility] 396 [place], [place] 458625 Otolaryngology 02/21/22 Sophie Ocasio AuD [address] [place] [address] 779875 Machine Bender Audiology 02/21/22 Parth Ellis MD [address] [place], [place] 779935 Assigned Heart and Vascular Provider 07/19/22 07/25/22 Roderick Morelos MD [address] [place] 872525 Assigned Heart and Vascular Provider 07/26/22 08/08/22 Henny Rosales APRN CHIEF DEVELOPMENT OFFICER [address] [place] [address] Assigned Heart and Vascular Provider 08/09/[address] [place] [address] 15124 Registered Dietitian Dietitian, Registered 09/02/22 Christiane Rodríguez MD 420 [facility] 396 [place], [place] 020365 Otolaryngology 11/12/22 Luis A Escobedo MD [address] [place] [address] 976225 Assigned Surgical Provider 11/01/22 11/28/22 Chely Fernandez PA-C 909 [place], [place] 457125 Assigned Surgical Provider 11/29/22 02/06/23 Jing Cadena APRN MILK RUNNER 420 [facility] 450 [place] [address] Clinical Nurse Specialist Anesthesiology 01/15/23 Radha Lopez, [facility] [address] [place] [address] 733845 Pharmacist Pharmacist 01/16/23 Luis A Escobedo MD 420 [facility] 195 [place], [place] 060515 Assigned Surgical Provider 02/07/23 04/15/23 Geri Loza PA-C [address] [place] [address] 704035 Assigned Surgical Provider 04/16/23 Raina Patterson, GINA CHIEF DEVELOPMENT OFFICER [address] [place] 275995 Nurse Practitioner Cardiovascular Disease 05/11/23 documented as of this encounter
--- OUTSIDE RECORDS SUMMARY | 2023-06-30 16:59 | XMS_ITS | Encounter Summary ---
Author Name Unknown Organization [place] Address [address] [place] [address] 53285 Care Team Providers Care Food Server Name Role Phone [facility] Primary Care Provider Unavailable Roderick Morelos MD Unavailable Roderick Morelos MD Unavailable [phone] Magno Wood MD Unavailable [phone] Sophie Ocasio AuD Unavailable +[phone] Parth Ellis MD Unavailable [phone] Roderick Morelos MD Unavailable [phone] Henny Rosales APRN PICKER OPERATOR Unavailable [phone] [facility] Jovanna Goessel Primary Care Pr ovider Sharee Negron RD Unavailable Kaykay Duarte GRADUATE RECRUITER Primary Care Provider [phone] Christiane Rodríguez MD Unavailable + [phone] Luis A Escobedo MD Unavailable +[phone] Chely Fernandez PA-C Unavailable +[phone] Jing Cadena HOSPITALITY AIDE WINDOW DRAPER Unavailable + [phone] Radha Lopez [facility] Unavailable Luis A Escobdeo MD Unavailable [phone] Geri Loza PA-C Unavailable Raina Patterson APRN PICKER OPERATOR Unavailable [phone] Encounter Details Date Type Department Care Team (Late st Contact Info) Description 05/26/2022 [facility] Medical Advice [facility] [address] 4th [place] [address] Jessi Mantilla LPN Social History [...] filedocumented in this encounter Care Teams Food Server Relationship Specialty Start Date End Date Ernestina Martini PCP - General Family Practice 10/12/19 08/18/22 [facility] [address] [place] [address] PCP - General 08/19/22 10/14/22 [place] [address] [place] [address] PCP - General 10/15/22 Roderick Morelos MD [address] [place] 094225 Cardiovascular Disease 02/03/22 Roderick Morelos MD [address] [place] [address] Assigned Heart and Vascular Provider 02/15/22 07/18/22 Magno Wood MD 420 [facility] 396 [place], [place] 750205 Otolaryngology 02/21/22 Sophie Ocasio AuD [address] [place] [address] 475845 Legal Contracts Specialist Audiology 02/21/22 Parth Ellis MD [address] [place], [place] 874385 Assigned Heart and Vascular Provider 07/19/22 07/25/22 Roderick Morelos MD [address] [place] 809435 Assigned Heart and Vascular Provider 07/26/22 08/08/22 Henny Rosales APRN PICKER OPERATOR [address] [place] [address] Assigned Heart and Vascular Provider 08/09/[address] [place] [address] 46696 Registered Dietitian Dietitian, Registered 09/02/22 Christiane Rodríguez MD 420 [facility] 396 [place], [place] 460685 Otolaryngology 11/12/22 Luis A Escobedo MD [address] [place] [place] [address] 733785 Assigned Surgical Provider 11/01/22 11/28/22 Chely Fernandez PA-C 909 [place], [place] 443135 Assigned Surgical Provider 11/29/22 02/06/23 Jing Cadena APRN WINDOW DRAPER 420 [facility] 450 [place] [address] Clinical Nurse Specialist Anesthesiology 01/15/23 Radha Lopez, [facility] [address] [place] [address] 969415 Pharmacist Pharmacist 01/16/23 Luis A Escobedo MD 420 [facility] 195 [place], [place] 925375 Assigned Surgical Provider 02/07/23 04/15/23 Geri Loza PA-C [address] [place] [address] 258705 Assigned Surgical Provider 04/16/23 Raina Patterson, GINA PICKER OPERATOR [address] [place] 260215 Nurse Practitioner Cardiovascular Disease 05/11/23 documented as of this encounter
--- OUTSIDE RECORDS SUMMARY | 2023-06-30 16:59 | XMS_ITS | Encounter Summary ---
Author Name Unknown Organization [place] Address [address] [place] [address] 30447 Care Team Providers Care News Video Editor Name Role Phone [facility] Primary Care Provider Unavailable Khris Butt MD Unavailable [phone] MorelosRoderick nunes MD Unavailable [phone] Roderick Morelos MD Unavailable [phone] Magno Wood MD Unavailable [phone] Sophie Ocasio Unavailable [phone] Parth Ellis MD Unavailable [phone] MorelosRoderick nunes MD Unavailable [phone] Henny Rosales APRN ACID REMOVER Unavailable [phone] [facility] [place] Nug[facility] [place] Primary Care Pr ovider Sharee Negron RD Unavailable Kaykay Duarte TRIBAL DELEGATE Primary Care Provider Christiane Rodríguez MD Unavailable +[phone] Luis A Escobedo MD Unavailable [phone] Chely FernandezC Unavailable [phone] Jing Cadena APRN CRIMINOLOGY PROFESSOR Unavailable [phone] JessicaRadha [facility] Unavailable Luis A Escobedo MD Unavailable Geri LozaC Unavailable Raina Patterson APRN ACID REMOVER Unavailable Encounter Details Date Type Department Care Team (Late st Contact Info) Description 02/11/[address] [facility] [place] 6405 [facility] [address] [place] [address] [place] Social [...] Coronavirus/COVID-19? No / Unsure 02/10/2022 4:12 PM COKE CRANE OPERATOR documented as of this encounter Plan of Treatment Not on file documented as of this encounter Visit Diagnoses Not on filedocumented in this encounter Care Teams News Video Editor Relationship Specialty Start Date End Date Ernestina Martini PCP - General Family Practice 10/12/19 08/18/22 [facility], [place] [address] [place], [place] 237607 PCP - General 08/19/22 10/14/22 Kaykay Duarte TRIBAL DELEGATE [address] [place] [address] [place] 438007 PCP - General 10/15/22 Khris Butt MD 6407 [facility] [address] [place] 198975 Assigned Heart and Vascular Provider 12/14/21 02/14/22 Roderick Morelos MD [address] [place] [address] Cardiovascular Disease 02/03/22 Roderick Morelos MD [address] [place] [address] Assigned Heart and Vascular Provider 02/15/22 07/18/22 Magno Wood MD [address] [place] [address] 471615 Otolaryngology 02/21/22 Sophie Ocasio AuD 909 [place], [place] 035095 Tooling Engineering Tech Audiology 02/21/22 Parth Ellis MD 6405 [place] 532945 Assigned Heart and Vascular Provider 07/19/22 07/25/22 Roderick Morelos MD [address] [place] [address] Assigned Heart and Vascular Provider 07/26/22 08/08/22 Henny Rosales APRN ACID REMOVER [address] [place] [address] Assigned Heart and Vascular Provider 08/09/[address] 909 [place], [place] 669425 Registered Dietitian Dietitian, Registered 09/02/22 Christiane Rodríguez MD 420 [facility] 396 [place], [place] 947465 Otolaryngology 11/12/22 Luis A Escobedo MD 420 [facility] 195 [place], [place] 338795 Assigned Surgical Provider 11/01/22 11/28/22 Chely Fernandez PA-C [address] [place] [address] 387575 Assigned Surgical Provider 11/29/22 02/06/23 Jing Cadena APRN CRIMINOLOGY PROFESSOR [address] [place] [address] 450 [place], [place] 050255 Clinical Nurse Specialist Anesthesiology 01/15/23 Radha Lopez, [facility] [address] [place] [address] 081065 Pharmacist Pharmacist 01/16/23 Luis A Escobedo MD [address] [place] [address] 69581 Assigned Surgical Provider 02/07/23 04/15/23 Geri Loza PA-C [address] [place] [address] 182215 Assigned Surgical Provider 04/16/23 Raina Patterson APRN ACID REMOVER [address] [facility] [address] [place] 542415 Nurse Practitioner Cardiovascular Disease 2/19/24 documented as of this encounter
--- OUTSIDE RECORDS SUMMARY | 2023-06-30 16:59 | XMS_ITS | Encounter Summary ---
Author Name Unknown Organization [facility] Address [address] [place] [address] Care Team Providers Care Bioinformatics Programmer Name Role Phone [facility] Primary Care Provider Unavailable Parth Ellis MD Unavailable [phone] Tati Ayala MD Unavailable [phone] Khris Butt MD Unavailable [phone] MorelosRoderick nunes MD Unavailable [phone] Roderick Morelos MD Unavailable [phone] Magno Wood MD Unavailable [phone] Sophie Ocasio Unavailable [phone] Parth Ellis MD Unavailable [phone] Roderick Morelos MD Unavailable [phone] Henny Rosales APRN SPEECH ASSISTANT Unavailable [phone] [facility] [place] Jovanna [place] Primary Care Pr ovider Sharee Negron RD Unavailable Kaykay Duarte DIRECTOR OF CAPITAL GIVING Primary Care Provider [phone] Christiane Rodríguez MD Unavailable [phone] Luis A Escobedo MD Unavailable [phone] Chely Fernandez PA-C Unavailable Cadena, Jing Susie COUPON CLERK SAMPLE PATTERNMAKER Unavailable [phone] Jessica Radha Estuardo [facility] Unavailable Luis A Escobedo MD Unavailable [phone] MariselGeri nunesMary Jo PA-C Unavailable [phone] Raina Patterson COUPON CLERK SPEECH ASSISTANT Unavailable Encounter Details Date Type Department Care [...] documented as of this encounter Care Teams Bioinformatics Programmer Relationship Specialty Start Date End Date Ernestina Martini PCP - General Family Practice 10/12/19 [facility]18/22 [facility] [address] [place], [place] [address] PCP - General 08/19/22 10/14/22 [place] [address] [place] [address] PCP - General 10/15/22 Parth Ellis MD [address] [place] 507415 Assigned Heart and Vascular Provider 01/13/20 12/13/21 Tati Ayala MD [address] [place] [address] [place], [place] 63[address] Assigned Endocrinology Provider 01/13/20 12/29/20 Khris Butt MD [address] [facility] [address] [place] [address] Assigned Heart and Vascular Provider 12/14/21 02/14/22 Roderick Morelos MD [address] [place] [address] Cardiovascular Disease 02/03/22 Roderick Morelos MD [address] [place] [address] Assigned Heart and Vascular Provider 02/15/22 07/18/22 Magno Wood MD [address] [place] [address] 857605 Otolaryngology 02/21/22 Sophie Ocasio AuD [address] [place] [address] 114075 Chili Powder Mixer Audiology 02/21/22 Parth Ellis MD [address] [place] 136565 Assigned Heart and Vascular Provider 07/19/22 07/25/22 Roderick Morelos MD [address] [place] [address] Assigned Heart and Vascular Provider 07/26/22 08/08/22 Henny Rosales APRN SPEECH ASSISTANT [address] [place] [address] Assigned Heart and Vascular Provider 08/09/[address] [place], [place] 083735 Registered Dietitian Dietitian, Registered 09/02/22 Christiane Rodríguez MD [address] [place] [address] 396 [place], [place] 122295 Otolaryngology 11/12/22 Luis A Escobedo MD 420 [facility] 195 [place], [place] 756685 Assigned Surgical Provider 11/01/22 11/28/22 Chely Fernandez PA-C 909 [place], [place] 306295 Assigned Surgical Provider 11/29/22 02/06/23 Jing Cadena APRN SAMPLE PATTERNMAKER 420 [facility] 450 [place], [place] 316405 Clinical Nurse Specialist Anesthesiology 01/15/23 Radha Lopez, [facility] [address] [place] [address] Pharmacist Pharmacist 01/16/23 Luis A Escobedo MD [address] [place] [address] Assigned Surgical Provider 02/07/23 04/15/23 Geri Loza PA-C [address] [place] [address] Assigned Surgical Provider 04/16/23 Raina Patterson APRN SPEECH ASSISTANT [address] [place] [address] Nurse Practitioner Cardiovascular Disease 05/11/23 documented as of this encounter
--- OUTSIDE RECORDS SUMMARY | 2023-06-30 16:59 | XMS_ITS | Encounter Summary ---
Author Name Unknown Organization [facility] Address [address] [place] [address] Care Team Providers Care Exhibition Designer Name Role Phone [facility] Primary [facility] Provider Unavailable Roderick Morelos MD Unavailable [phone] Roderick Morelos MD Unavailable [phone] Magno Wood MD Unavailable [phone] Sophie Ocasio AuD Unavailable [phone] Parth Ellis MD Unavailable [phone] Roderick Morelos MD Unavailable Henny Rosales APRN WIRE BRUSH OPERATOR Unavailable [phone] [facility] Jovanna [place] Primary Care Pr ovider Sharee Negron RD Unavailable Kaykay Duarte FIELD EXAMINER Primary Care Provider Christiane Rodríguez MD Unavailable [phone] Luis A Escobedo MD Unavailable [phone] Chely Fernandez PA-C Unavailable [phone] Jing Cadena BINDERY MACHINE OPERATOR ANIMAL TRAINER Unavailable [phone] Radha Lopez [facility] Unavailable Luis A Escobedo MD Unavailable Geri Loza PA-C Unavailable UzielkeriRaina APRN WIRE BRUSH OPERATOR Unavailable [phone] Encounter Details Date Type Department Care Team (Late st Contact Info) Description 04/01/2022 [facility] [address] 4th [place] [address] [facility] Social History Tobacco Use Types Packs/Day Years [...] on filedocumented in this encounter Care Teams Exhibition Designer Relationship Specialty Start Date End Date Ernestina Martini PCP - General Family Practice 10/12/19 08/18/22 [facility], [place] [address] [place] [address] PCP - General 08/19/22 10/14/22 [place] [address] [place] [address] PCP - General 10/15/22 Roderick Morelos MD [address] [place] 319135 Cardiovascular Disease 02/03/22 Roderick Morelos MD [address] [place] [address] Assigned Heart and Vascular Provider 02/15/22 07/18/22 Magno Wood MD 420 [facility] 396 [place], [place] 0[address]125 Otolaryngology 02/21/22 Sophie Ocasio AuD [address] [place] [address] 807445 Manager Flight Audiology 02/21/22 Parth Ellis MD [address] [place], [place] 2337[address] Assigned Heart and Vascular Provider 07/19/22 07/25/22 Roderick Morelos MD [address] [place] 840725 Assigned Heart and Vascular Provider 07/26/22 08/08/22 Henny Rosales APRN WIRE BRUSH OPERATOR [address] [place] [phone] Assigned Heart and Vascular Provider 08/09/[address] [place] [address] 197375 Registered Dietitian Dietitian, Registered 09/02/22 Christiane Rodríguez MD 420 [facility] 396 [place], [place] 948635 Otolaryngology 11/12/22 Luis A Escobedo MD [address] [place] [address] 264405 Assigned Surgical Provider 11/01/22 11/28/22 Chely Fernandez PA-C 909 [place], [place] 359235 Assigned Surgical Provider 11/29/22 02/06/23 Jing Cadena APRN ANIMAL TRAINER 420 [facility] 450 [place] [address] Clinical Nurse Specialist Anesthesiology 01/15/23 Radha Lopez, [facility] 909 [place], [place] [address]475 Pharmacist Pharmacist 01/16/23 Luis A Escobedo MD 420 [facility] 195 [place], [place] 325955 Assigned Surgical Provider 02/07/23 04/15/23 Geri Loza PA-C 909 [place], [place] 436075 Assigned Surgical Provider 04/16/23 Raina Patterson APRN WIRE BRUSH OPERATOR [address] [facility] [address] [place] 541525 Nurse Practitioner Cardiovascular Disease 05/11/23 documented as of this encounter
--- OUTSIDE RECORDS SUMMARY | 2023-06-30 16:59 | XMS_ITS | Encounter Summary ---
Author Name Unknown Organization [facility] Address [address] [place] [address] Care Team Providers Care Glove Turner And Former Automatic Name Role Phone Roderick Morelos MD Unavailable [phone] Magno Wood MD Unavailable [phone] Sophie Ocasio Unavailable [phone] Henny Rosales DIRECTOR OF ACQUISITIONS STITCHER FEEDER Unavailable [phone] [facility] Primary Care Pr ovider Sharee Negron RD Unavailable Kaykay Duarte [facility] Primary Care Provider [phone] Christiane Rodríguez MD Unavailable [phone] Luis A Escobedo MD Unavailable +[phone] Chely Fernandez PA-C Unavailable +[phone] Jing Cadena DIRECTOR OF ACQUISITIONS FORKLIFT TECHNICIAN Unavailable + [phone] Radha Lopez [facility] Unavailable [phone] Luis A Escobedo MD Unavailable [phone] Geri Loza PAEddaC Unavailable [phone] Raina Patterson DIRECTOR OF ACQUISITIONS STITCHER FEEDER Unavailable [phone] Encounter Details Date Type Department Care Team (Late st Contact Info) Description 08/25/2022 Telephone [facility] [address] [place] [address] Geri Loza PA-C 9 [place] [address] Social History Tobacco Use Types Packs/Day Years [...] on filedocumented in this encounter Care Teams Glove Turner And Former Automatic Relationship Specialty Start Date End Date Clinic, [place] [facility] [address] [place] [address] [id number] PCP - General 08/19/22 10/14/22 Kaykay Duarte, [facility] [address] [place] [address] PCP - General 10/15/22 Rodercik Morelos MD [address] [place], [place] 0[address]25 Cardiovascular Disease 02/03/22 Magno Wood MD 420 [facility] 396 [place] [address] Otolaryngology 02/21/22 Sophie Ocasio AuD 909 [place], [place] 955085 Plastics Design Engineer Audiology 02/21/22 Henny Rosales APRN STITCHER FEEDER [address] [place] [address] Assigned Heart and Vascular Provider 08/09/[address] [place], [place] 043105 Registered Dietitian Dietitian, Registered 09/02/22 Christiane Rodríguez MD 420 [facility] 396 [place] [address] Otolaryngology 11/12/22 Luis A Escobedo MD 420 [facility] 195 [place], [place] 8[address]24455 Assigned Surgical Provider 11/01/22 11/28/22 Chely Fernandez PA-C 909 [place], [place] 507365 Assigned Surgical Provider 11/29/22 02/06/23 Jing Cadena APRN FORKLIFT TECHNICIAN 420 [facility] 450 [place] [address] Clinical Nurse Specialist Anesthesiology 01/15/23 Radha Lopez [facility] [address] [place] [address] 011605 Pharmacist Pharmacist 01/16/23 Luis A Escobedo MD 420 [facility] 195 [place], [place] 389345 Assigned Surgical Provider 02/07/23 04/15/23 Geri Loza PA-C [address] [place] [address] 856485 Assigned Surgical Provider 04/16/23 Raina Patterson APRN STITCHER FEEDER [address] [facility] [address] [place] 10[address]05 Nurse Practitioner Cardiovascular Disease 05/11/23 documented as of this encounter
--- OUTSIDE RECORDS SUMMARY | 2023-06-30 16:59 | XMS_ITS | Encounter Summary ---
Author Name Unknown Organization [facility] Address [address] [place] [address] Care Team Providers Care Substitute Teacher Name Role Phone Roderick Morelos MD Unavailable [phone] Magno Wood MD Unavailable [phone] Sophie Ocasio Unavailable [phone] Henny Rosales TOOL TENDER PECAN GATHERER Unavailable +[phone] [facility] Primary Care Pr ovider Sharee Negron RD Unavailable Kaykay Duarte ADVERTISING INSERTER Primary Care Provider [phone] Christiane Rodríguez MD Unavailable +[phone] Luis A Escobedo MD Unavailable +[phone] Chely FernandezC Unavailable [phone] Jing Cadena TOOL TENDER LAB CLERK Unavailable + [phone] Radha Lopez [facility] Unavailable [phone] Luis A Escobedo MD Unavailable [phone] Geri Loza PA-C Unavailable [phone] Raina Patterson TOOL TENDER PECAN GATHERER Unavailable +[phone] Reason for Visit * Reason Onset Date Comments Prior Auth - Medication 09/03/2022 Orlistat -PA DENIED Encounter Details Date Type Department Care Team (Late st Contact Info) Description 09/03/2022 Telephone [facility] [address] [place] [address] Geri Loza PA-C 909 [place], [place] 091445 Prior Auth - Medication (Orlistat-PA DENIED ) [...] Team PA Initiation Medication: Orlistat Insurance Company: [employer] - Pharmacy Filling the Rx: [id number] - [place] - [phone] [place] Filling Pharmacy Filling Pharmacy Fax: Start Date: [...] ?? Gastric sleeve was completed 08/09/[address] [facility] [address] Barillas. Starting weight 338lb, BMI 56.25. She felt that instantly did not see expected weight loss results. Per chart review had lost 8lbsby 3 months post op and has followed up with [facility] since. She has lost 38lbs since surgery, andhas been able maintain weight loss of 305lbs for many years. However, continues to feel that is inadequet weight loss and wanted to discuss a conversion to RYGB today. Insurance Name: Insurance ID: Pharmacy Information (if different than what is on RX) Name: [facility][id number] - [place] [id number] [place] * Telephone Encounter - Rowena Small - 09/03/2022 8:44 AM CDT Reason for Call: Prior Auth Detailed comments: Pt states [facility] said a PA is required [...] on filedocumented in this encounter Care Teams Substitute Teacher Relationship Specialty Start Date End Date Clinic, [place] [address] [place] [address] PCP - General 08/19/22 10/14/22 Kaykay Duarte ADVERTISING INSERTER [address] [place] [address] PCP - General 10/15/22 Roderick Morelos MD [address] [place] [address] Cardiovascular Disease 02/03/22 Magno Wood MD [address] [place] [address] 396 [place], [place] 031675 Otolaryngology 02/21/22 Sophie Ocasio AuD [address] [place] [address] 842185 Patient Financial Advocate Audiology 02/21/22 Henny Rosales APRN PECAN GATHERER [address] [place] [phone] Assigned Heart and Vascular Provider 08/09/[address] [place] [address] 603705 Registered Dietitian Dietitian, Registered 09/02/22 Christiane Rodríguez MD 420 [facility] 396 [place], [place] 152445 Otolaryngology 11/12/22 Luis A Escobedo MD 420 [facility] 195 [place], [place] 4[address]95 Assigned Surgical Provider 11/01/22 11/28/22 Chely Fernandez PA-C [address] [place] [address] 699925 Assigned Surgical Provider 11/29/22 02/06/23 Jing Cadena APRN LAB CLERK 420 [facility] 450 [place], [place] 213655 Clinical Nurse Specialist Anesthesiology 01/15/23 Radha Lopez, [facility] [address] [place] [address] 018795 Pharmacist Pharmacist 01/16/23 Luis A Escobedo MD 420 [facility] 195 [place], [place] 529415 Assigned Surgical Provider 02/07/23 04/15/23 Geri Loza PA-C 909 [place], [place] 791945 Assigned Surgical Provider 04/16/23 Raina Patterson APRN PECAN GATHERER [address] [place] [address] Nurse Practitioner Cardiovascular Disease 05/11/23 documented as of this encounter
--- OUTSIDE RECORDS SUMMARY | 2023-06-30 17:00 | XMS_ITS | Clinical Summary ---
Author Name Unknown Organization [facility] Address [address] [place] [address] Care Team Providers Care Land Surveying Survey Worker Name Role Phone Kaykay Duarte APRN, LEAH Primary Care Provid er Source Comments You are receiving this document as you are listed as the primary care provider,follow-up provider, or the patient has been referred to you for consultation.This is in compliance with the Medicare and[facility] EHR Incentive Program,which states Providers who transition their patient to another setting of careor provider of care or refers their patient to another provider of care shouldprovide summary care record for each transition of care or referral. [facility] Allergies No known active allergies Medications Medication [...] use. 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 [address] Mikayla Sweeney MD Follow-up 06/02/2023 Orders Only [facility] Provider, MD Kip 05/20/2023 2:30 PM SUPERINTENDENT RADIO COMMUNICATIONS [facility] [address] [place] [address] Jose Oconnor MD Hoarseness (Primary Dx); Change in voice 05/15/2023 Telephone [facility] [address] [place] [address] Kaykay Duarte APRN, SLICING MACHINE FEEDER ERRONEOUS ENTRY 05/15/2023 Notes/Orders Centralized Outreach [address] [place] [address] [phone] Mikayla Sweeney MD Type 2 diabetes mellitus without complication, without long-term current use of insulin (HRC) 05/09/2023 Partner ED [facility] Provider, MD Kip [facility] 05/09/2023 05/09/2023 Nurse Triage Careline [address] [place] [address] Unknown, Physician PALPITATIONS--ED; TACHYCARDIA 04/29/2023 2:30 PM SUPERINTENDENT RADIO COMMUNICATIONS Ancillary Procedure [facility] [address] [address] [address] [place] [phone] Elizabeth Herndon, GINA, CNM Hypothyroidism, unspecified type (HRC) 04/29/2023 10:00 AM SUPERINTENDENT RADIO COMMUNICATIONS Lab Visit [facility] [address], [address] [place] [address] Screen for STD (sexually transmitted disease) 04/29/2023 9:00 AM SUPERINTENDENT RADIO COMMUNICATIONS Office Visit [facility] PR[facility] OPER[facility] [address], [address] [place] [phone] Elizabeth Herndon APRN, CNM Annual physical exam (Primary Dx); Low libido; Screening for cervical cancer; Hypothyroidism, unspecified type (HRC); Screen for STD (sexually transmitted disease); Screening for thyroid disorder 04/28/2023 2:40 PM SUPERINTENDENT RADIO COMMUNICATIONS Office Visit [facility] [address] [phone] Indigo Zuniga A, OD Examination of eyes and vision (Primary Dx); Presbyopia; Regular astigmatism of left eye 04/28/2023 2:10 PM SUPERINTENDENT RADIO COMMUNICATIONS Lab Visit [address] [address] Hypothyroidism, unspecified type (HRC) 04/28/2023 E-Visit [facility] [address] [place] [address] Mikayla Sweeney MD Chief Comp: Questions 04/21/2023 Telephone [facility] [address] [place] [phone] Jesus Topete MD Orders Needed 04/17/2023 1:10 PM SUPERINTENDENT RADIO COMMUNICATIONS Office Visit [facility] [address] [place] [phone] Jesus Topete MD Bilateral hip joint arthritis (Primary Dx); Trochanteric bursitis of left hip; Trochanteric bursitis, right hip 04/02/2023 8:40 AM SUPERINTENDENT RADIO COMMUNICATIONS Ancillary Procedure [address] [address] from Last 3 Months Immunizations Name Administration Dates Next Due Influenza IIV4 (Quadrivalent ) 0.5mL (99086) 02/08/2021,03/31/2019,04/14/2017 PCV20 ([id number]) 05/20/2023 PPSV23 (Pneumovax) 04/14/2017 Pfizer Monovalent 12+ [...] Comments Blood Pressure 121/77 05/20/2023 2:19 PM SUPERINTENDENT RADIO COMMUNICATIONS Pulse 86 05/20/2023 2:19 PM SUPERINTENDENT RADIO COMMUNICATIONS Temperature 39.3 ??C (102.7 ??F) 10/31/2022 2:29 PM C DT Respiratory Rate 16 11/20/2022 8:15 AM CDT Oxygen Saturation 97% 11/20/2022 8:15 AM CDT Inhaled Oxygen Concentration - - Weight 120.5 kg (265 lb 9.6 oz) 05/20/2023 2:19 PM SUPERINTENDENT RADIO COMMUNICATIONS Height 167.6 cm (5' 6) 09/11/2022 4:11 [...] this topic Medical Devices Implanted Type Area Assistant Sales Manager Device Identifier Shelf Expiration Date Model / Serial / Lot Kit Leidy Burris Sys - [id number] Implanted:Qty: 1 on 02/19/2021 by Zoila Shaikh MBBS at [facility] DEVICE N/A: PELVIS [employer] 12/05/2021 [id number] / [id number] / [id number] Description:Polypropylene me sh- per [employer] Ent Gyrus Virk Torp-05/20/2005 Implanted: 006 (Quantity not on file) ENT EAR [id number] / / [id number] Description:Devices that are made from non-metallic materials (i.e. Implants and Ventilation Tubes made from DAVIS, Plasti-pore, Silicone, Fluoroplastic) are inherently non-conducting and non-magnetic and pose no known hazards in all MR environments and therefore are considered MR Safe. - Per [employer] Procedures Procedure Name Priority Date/Time Associated Diagnosis Comments HOLTER MONITOR 06/02/2023 US THYROID Routine 04/29/2023 2:31 PM SUPERINTENDENT RADIO COMMUNICATIONS Hypothyroidism, unspecified type (HRC) CHLAMYDIA & GC, URINE (14 YEARS AND OLDER) Routine 04/29/2023 10:11 AM SUPERINTENDENT RADIO COMMUNICATIONS Screen for STD (sexually transmitted disease) HPV WITH 16 18 GENOTYPING, CERVICAL/ENDOCERVICA L Routine 04/29/2023 9:58 AM SUPERINTENDENT RADIO COMMUNICATIONS Screening for cervical cancer PAP TEST Routine 04/29/2023 9:58 AM SUPERINTENDENT RADIO COMMUNICATIONS Screening for cervical cancer TSH, SENSITIVE Routine 04/28/2023 2:05 PM SUPERINTENDENT RADIO COMMUNICATIONS Hypothyroidism, unspecified type (HRC) MM MAMMOGRAM SCREENING BILAT W 3D SCOT W CAD Routine 04/02/2023 8:58 AM SUPERINTENDENT RADIO COMMUNICATIONS HGB A1C Routine 12/23/2022 11:40 AM CDT [...] DUMMY/OTHER/AR * US Thyroid (04/29/2023 2:31 PM SUPERINTENDENT RADIO COMMUNICATIONS) Anatomical Region Laterality Modality Neck, Head Ultrasound 04/29/2023 2:11 PM SUPERINTENDENT RADIO COMMUNICATIONS Impressions 04/29/2023 4:30 PM SUPERINTENDENT RADIO COMMUNICATIONS COMPARISON: None. TECHNIQUE: Ultrasound examination of the [...] (14 Years and Older) (04/29/2023 10:11 AM SUPERINTENDENT RADIO COMMUNICATIONS) Chlamydia Trachomatis STD Not Detected Not Detected 04/30/2023 12:18 AM SUPERINTENDENT RADIO COMMUNICATIONS [facility] N. gonorrhoeae STD Not Detected Not Detected 04/30/2023 12:18 AM SUPERINTENDENT RADIO COMMUNICATIONS [facility] Urine STD (Urine for STD) Non-blood Collection / Unknown 04/29/2023 10:11 AM SUPERINTENDENT RADIO COMMUNICATIONS 04/29/2023 10:12 AM SUPERINTENDENT RADIO COMMUNICATIONS [facility] - 04/30/2023 12:18 AM SUPERINTENDENT RADIO COMMUNICATIONS Test performed by Insurance Claims Processor Mediated Amplification (TMA). Elizabeth Herndon APRN, CLAUM LAB_1 [facility] [address] [place] [address], [facility] * PAP Test (04/29/2023 9:58 AM SUPERINTENDENT RADIO COMMUNICATIONS) Case Report Pap ? Case: [id number] ? Authorizing Provider: ??Elizabeth Herndon APRN, ?Collected: ? 04/29/2023 0958 ? CNM ? Ordering Location: ? [facility] ? Received: ?04/29/2023 1008 ? Services-HOT PLATE PRESS OPERATOR ? First Screen: ?Nault, Diana E, CT (ASCP) ? Specimen: ?Pap Test, Routine, Cervix/Endocervix ? 05/21/2023 1:19 PM SUPERINTENDENT RADIO COMMUNICATIONS [facility] Pap Specimen Adequacy Satisfactory for evaluation, endocervical/kerr sformation zone component present. 05/21/2023 1:19 PM SUPERINTENDENT RADIO COMMUNICATIONS [facility] Pap Interpretation (NILM) Negative for intraepithelial lesion or malignancy. 05/21/2023 1:19 PM SUPERINTENDENT RADIO COMMUNICATIONS [facility] Pap Disclaimer The Pap test is a screening test to aid in the detection of cervical and vaginal cancers and their precursor lesions. It is not a diagnostic procedure and should not be used as the sole means of detecting malignancy. Both false-positive and false-negative results may occur. 05/21/2023 1:19 PM SUPERINTENDENT RADIO COMMUNICATIONS [facility] Gross Description The specimen is received in SurePath fixative and properly labeled. 1 Pap-stained SurePath slide is prepared. 05/21/2023 1:19 PM SUPERINTENDENT RADIO COMMUNICATIONS [facility] Embedded Images 1:19 PM SUPERINTENDENT RADIO COMMUNICATIONS [facility] Other Specimen Type ENTIRE ENDOCERVIX / Unknown 04/29/2023 9:58 AM SUPERINTENDENT RADIO COMMUNICATIONS 04/29/2023 10:08 AM SUPERINTENDENT RADIO COMMUNICATIONS Comment:LMP: No LMP recorded . (Menstrual status: IUD). Elizabeth Herndon APRN, CNM LAB PATHOLOGY [facility] [address] [employer] * HPV with 16 18 Genotyping (04/29/2023 9:58 AM SUPERINTENDENT RADIO COMMUNICATIONS) HPV High Risk Type 16 PCR Not Detected Not detected 05/21/2023 1:19 PM SUPERINTENDENT RADIO COMMUNICATIONS [facility] HPV High Risk Type 18 PCR Not Detected Not Detected 05/21/2023 1:19 PM SUPERINTENDENT RADIO COMMUNICATIONS [facility] HPV High Risk Other Than 16/18 Not Detected Not detected 05/21/2023 1:19 PM SUPERINTENDENT RADIO COMMUNICATIONS [facility] Cervical Broom ENTIRE ENDOCERVIX / Unknown 04/29/2023 9:58 AM SUPERINTENDENT RADIO COMMUNICATIONS 04/29/2023 4:40 PM SUPERINTENDENT RADIO COMMUNICATIONS Narrative [facility] - 05/21/2023 1:19 PM SUPERINTENDENT RADIO COMMUNICATIONS The Janett HPV test is a qualitative [...] Herndon APRN, CNM LAB_1 Performing Organization Address [facility]/ZIP Co de Phone Number [address] * (ABNORMAL) TSH (04/28/2023 2:05 PM SUPERINTENDENT RADIO COMMUNICATIONS) TSH, Sensitive 0.02(L) 0.30 - 4.50 uIU/mL 04/28/2023 8:01 PM SUPERINTENDENT RADIO COMMUNICATIONS [facility] Blood Venipuncture / Unknown 04/28/2023 2:05 PM SUPERINTENDENT RADIO COMMUNICATIONS 04/28/2023 2:05 PM SUPERINTENDENT RADIO COMMUNICATIONS Mikayla Sweeney MD LAB_1 [facility] [address] * MM Mammogram Screening Bilat W 3D Scot W CAD (04/02/2023 8:58 AM SUPERINTENDENT RADIO COMMUNICATIONS) Anatomical Region Laterality Modality Breast Bilateral Mammography Impressions 04/02/2023 10:15 AM SUPERINTENDENT RADIO COMMUNICATIONS : ACR BI-RADS Category 1: Negative RECOMMENDATION: Follow Up Imaging in 12 months - Bilateral The provided family history indicates that the patient might be at a high lifetime risk of breast cancer. Consider a formal risk assessment if not previously performed. The results and recommendations of this examination will be communicated to the patient. Narrative 04/02/2023 10:15 AM SUPERINTENDENT RADIO COMMUNICATIONS MM MAMMOGRAM SCREENING BILAT W 3D SCOT [...] evidence of malignancy. ?? Kaykay Duarte APRN, SLICING MACHINE FEEDER RAD CARLOS * (ABNORMAL) HgbA1c - Collect in Lab (12/23/2022 11:40 AM CDT) Hemoglobin A1C (Rapid) 6.4(H) <=5.6 % 12/23/2022 1:46 PM T [facility] Estimated Average Glucose (Calc) 137 < 117 mg/dL 12/23/2022 1:46 PM [facility] Comment:Estimated average gl ucose (eAG) converts A1c into glucose units (mg/dL) and estimates average glucose over the past approximately 3 months. The eAG reference interval (<117 mg/dL) corresponds to an A1c of <5.7%. Blood Venipuncture / Unknown 12/23/2022 11:40 AM CDT 12/23/2022 11:43 AM CDT [facility] - 12/23/2022 1:46 PM CDT For [...] for further direction. Mikayla Sweeney MD LAB_1 [facility] [address] [place] [address], [facility] [phone] * Endoscopy, colon, diagnostic (11/20/2022 7:03 AM [...] saturations were ? monitored continuously. The ? [id number] was introduced through ? the anus and [...] the initial medication ? administration until the first cook assists with ? initial maneuvers (biopsy / [...] Procedure Code(s): ? --- Professional --- ? 77734, Colonoscopy, flexible; ? diagnostic, including collection of ? specimen(s) by brushing or washing, ? when performed (separate procedure) ? 71931, Moderate sedation; each ? additional 15 minutes [...] (additional time may ? be reported with 81371, as ? appropriate) Diagnosis Code(s): ? --- Professional --- ? Z12.11, Encounter for screening for ? malignant neoplasm of colon ? K64.9, Unspecified hemorrhoids CPT copyright 2020 [employer]. All rights reserved. The codes documented in this report are preliminary and upon windows server administrator review may be revised to meet current [...] and oxygen saturations were monitored continuously. The [id number] was introduced through the anus and advanced [...] from the initial medication administration until the first cook assists with initial maneuvers (biopsy / polypectomy / etc.), or if no maneuvers are performed, until the endoscopist leaves the room. Impression: - The examined portion of the ileum was normal. - The entire examined colon is normal. - Hemorrhoids. - No specimens collected. Recommendation: - Repeat colonoscopy in 10 years for screening purposes. Procedure Code(s): --- Professional --- 07290, Colonoscopy, flexible; diagnostic, including collection of specimen(s) by brushing or washing, when performed (separate procedure) 98449, Moderate sedation; each additional 15 minutes intraservice time G0500, Moderate sedation services provided by the same physician or other qualified health primary care provider performing a gastrointestinal endoscopic service that sedation supports, requiring the presence of an independent trained observer to assist in the monitoring of the patient's level of consciousness and physiological status; initial 15 minutes of intra-service time; patient age 5 years or older (additional time may be reported with 59509, as appropriate) Diagnosis Code(s): --- Professional --- Z12.11, Encounter for screening for malignant neoplasm of colon K64.9, Unspecified hemorrhoids CPT copyright 2020 [employer]. All rights reserved. The codes documented in this report are preliminary and upon windows server administrator review may be revised to meet current compliance requirements. Nahomy Chavez Noa, 11/20/2022 8:02:54 AM This document has been electronically signed. Number of Addenda: 0 Note Initiated On: 11/20/2022 7:03 AM Endoscopy Report Elizabeth Herndon CONSTRUCTION EQUIPMENT MECHANIC, CNM PN GI PROCEDUR E ORDERABLES Performing Organization Address City/[facility]/ZIP Co de Phone Number PN PROVATION * (ABNORMAL) Lipid Panel and Direct LDL(If Needed) (10/23/2022 11:20 AM CDT) Cholesterol 322(H) 0 - 199 mg/dL 10/23/2022 1:00 PM T [facility] Triglyceride 205(H) <=149 mg/dL 10/23/2022 1:00 PM T [facility] HDL Cholesterol 46 >=40 mg/dL 3 1:00 PM [facility] LDL, Calculated 235(H) <130 mg/dL 3 1:00 PM [facility] Non HDL Chol, Calculated 276(H) <=159 mg/dL 10/23/2022 1:00 PM [facility] Cholesterol/HDL Ratio 7.0 10/23/2022 1:00 PM [facility] Hours Fasting 0 10/23/2022 1:00 PM [facility] Blood Venipuncture / Unknown 10/23/2022 11:20 AM CDT 10/23/2022 11:39 AM CDT Mikayla Sweeney MD LAB_1 Performing Organization Address City/[facility]/ZIP Co de Phone Number [facility] [address] [place] [address], [facility] [phone] * (ABNORMAL) Comp Metabolic Panel (10/23/2022 11:20 AM CDT) Sodium 139 136 - 145 mmol/L 10/23/2022 1:00 PM T [facility] Potassium 4.3 3.5 - 5.1 mmol/L 10/23/2022 1:00 PM [facility] Chloride 105 98 - 109 mmol/L 10/23/2022 1:00 PM [facility] CO2 24 20 - 29 mmol/L 10/23/2022 1:00 PM [facility] Anion Gap 10 7 - 16 mmol/L 10/23/2022 1:00 PM [facility] Calcium 9.4 8.4 - 10.4 mg/dL 10/23/2022 1:00 PM [facility] BUN 17 7 - 26 mg/dL 10/23/2022 1:00 PM [facility] Creatinine 0.90 0.55 - 1.02 mg/dL 10/23/2022 1:00 PM [facility] Alkaline Phosphatase 73 40 - 150 U/L 10/23/2022 1:00 PM [facility] AST (SGOT) 16 10 - 40 U/L 10/23/2022 1:00 PM [facility] ALT (SGPT) 21 <=55 U/L 10/23/2022 1:00 PM [facility] Bilirubin, Total 0.4 0.2 - 1.2 mg/dL 10/23/2022 1:00 PM [facility] Protein, Total 7.0 6.4 - 8.3 g/dL 10/23/2022 1:00 PM [facility] Albumin 3.8 3.5 - 5.0 g/dL 10/23/2022 1:00 PM [facility] Glucose 123(H) 70 - 100 mg/dL 10/23/2022 1:00 PM [facility] Comment:The given reference range is for the fasting state. Non-fasting reference range for glucose is 70 - 180 mg/dL. Hours Fasting 0 10/23/2022 1:00 PM [facility] GFR, Estimated >60 >60 mL/min/1.7 3m2 10/23/2022 1:00 PM [facility] Blood Venipuncture / Unknown 10/23/2022 11:20 AM CDT 10/23/2022 11:39 AM T Geri Loza PA-C LAB_1 [facility] [address] [place] [address], [facility] [phone] * Albumin/Creatinine Ratio,Random Urine (08/20/2022 8:36 AM CDT) [facility] Albumin/Creati nine Ratio, Urine, Random 10 <30 mg/g 08/20/2022 10:58 AM CDT [facility] Albumin, Urine, Random 18.1 mg/L 08/20/2022 10:58 AM CDT [facility] Creatinine, Urine, Random 182 >20 mg/dL mg/dL 08/20/2022 10:58 AM CDT [facility] Urine Non-blood Collection / Unknown 08/20/2022 8:36 AM CDT 08/20/2022 9:30 AM CDT Mikayla Sweeney MD LAB_1 Performing Organization Address City/[facility]/ZIP Co de Phone Number [facility] [address] [place] [address] [phone] * Hepatitis C Antibody, with Reflex (09/13/2021 11:05 AM CDT) [facility] Hepatitis C Antibody Negative (Non Reactive) Negative (Non Reactive) 09/13/2021 4:31 PM CDT [facility] Comment:Antibodies to HCV no t detected. Does not exclude the possiblity of exposure to HCV. Blood Venipuncture / Unknown 09/13/2021 11:05 AM CDT 09/13/2021 11:16 AM CDT Kaykay Duarte APRN, LEAH LAB_1 [facility] [address] * HIV 1/2 Ag/Ab 4th Generation (06/27/2020 8:04 AM CDT) Pathologist [facility] HIV 1/2 Antigen/Antib sherry (4th generation) Negative (Non Reactive) Negative (Non Reactive) 06/27/2020 12:45 PM CDT [facility] Comment:HIV-1 p24 Antigen an d HIV-1/HIV-2 Antibody not detected Blood Venipuncture / Unknown 06/27/2020 8:04 AM CDT 06/27/2020 8:09 AM CDT Kaykay Duarte APRN, CNP LAB_1 [facility] [address] [place] [address], [facility] from Last 3 Months or Most Recently Relevant to Health Maintenance Advance Directives * Full Code (Latest Code Status on File) Date Activated Date Inactivated Comments 08/09/2020 4:04 PM 08/10/2020 1:55 PM Care Teams Land Surveying Survey Worker Relationship Specialty Start Date End Date Kaykay Duarte APRN, CNP [address] [place] [address] PCP - General Nurse Practitioner 10/25/21
--- OUTSIDE RECORDS SUMMARY | 2023-06-30 17:00 | XMS_ITS | Encounter Summary ---
Author Name Unknown Organization [facility] Address [address] [place] [address] Care Team Providers Care Extruding Press Adjuster Name Role Phone Edda Agudelo PA-C Primary Care Provider + [phone] aMgno Wood MD Unavailable +[phone] Elvia Nugent [place] Primary Care Provider Unavailable Parth Ellis MD Unavailable +[phone] Tati Ayala MD Unavailable +[phone] Khris Butt MD Unavailable +[phone] MorelosRoderick nunes MD Unavailable +[phone] Roderick Morelos MD Unavailable +[phone] Magno Wood MD Unavailable Sophie Ocasio Unavailable +[phone] Parth Ellis MD Unavailable +[phone] MorelosRoderick nunes MD Unavailable +[phone] Henny Rosales APRN LOOM STARTER Unavailable +[phone] [facility] Elvia Nugent [place] Primary Care Pr ovider Sharee Negron RD Unavailable Kaykay Duarte IDENTIFICATION PRINTING MACHINE SETTER Primary Care Provider [phone] Christiane Rodríguez MD Unavailable +[phone] Luis A Escobedo MD Unavailable + [phone] Chely Fernadnez PA-C Unavailable +[phone] Cadena Jing Susie FUENTES INTERN RETAIL Unavailable + [phone] [facility] Unavailable +[phone] Luis A Escobedo MD Unavailable +[phone] Geri Loza PA-C Unavailable +[phone] Raina Patterson GINA LOOM STARTER Unavailable +[phone] Encounter Details Date Type Department Care Team (Late st Contact Info) Description 06/13/2009 Office Visit-[facility] Heart [address] [place] [phone] Lauri Canada APRN CNP NO INFO AVAILABLE 01/09/2022 Social History Tobacco Use Types Packs/Day Years Used Date Smoking Tobacco: Never Assessed Sex and Gender Information Value Date Recorded Sex Assigned at Not on file Gender Identity Not on file Sexual Orientation Not on file documented as of this encounter Progress Notes * Lauri Canada - 07/13/2009 10:04 AM CDT Progress Note Created by: Luari Canada, N.P. DATE: 06/13/2009 JIMBO OWENS DATE OF : 1970 AGE: [age] years old Referring Physician: LUIS A WORRELL Referring Clinic: [facility] CURRENT DIAGNOSES 1. 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 Lipid profile/ALT 3 months Lauri Canada, N.P. documented in this encounter Plan of Treatment Not on file documented as of this encounter Visit Diagnoses Not on filedocumented in this encounter Additional Health Concerns Infection Onset Date Last Indicated Resolved Time Rule Out COVID-19 03/19/2020 03/19/2020 03/19/2020 6:22 PM DIRECTOR OF TAX SERVICES COVID-19 03/19/2020 03/19/202004/09/2020 11:3 9 PM DIRECTOR OF TAX SERVICES Rule Out COVID-19 06/19/2021 06/19/2021 06/19/2021 1:37 AM CDT Rule Out COVID-19 10/29/2021 10/29/2021 10/29/2021 1:07 AM CDT documented as of this encounter Care Teams Extruding Press Adjuster Relationship Specialty Start Date End Date Edda Agudelo PA-C [facility] [address] [place] [address] PCP - General 05/04/12 10/11/19 Ernestina Martini [address] [facility] [address] [place] [address] PCP - General Family Practice 10/12/19 [facility] [address] [place] [address] PCP - General 08/19/22 10/14/22 Kaykay Duarte, IDENTIFICATION PRINTING MACHINE SETTER [address] [place] [address] PCP - General 10/15/22 Magno Wood MD [address] [address] Otolaryngology 05/29/15 08/02/17 Parth Ellis MD [address] [place] [address] Assigned Heart and Vascular Provider 01/13/20 12/13/21 Tati Ayala MD [address] [place] [address] Assigned Endocrinology Provider 01/13/20 12/29/20 Khris Butt MD [address] [place] [address] Assigned Heart and Vascular Provider 12/14/21 02/14/22 Roderick Morelos MD [address] [place] [address] Cardiovascular Disease 02/03/22 Roderick Morelos MD [address] [place] 676775 Assigned Heart and Vascular Provider 02/15/22 07/18/22 Magno Wood MD [address] [place] [address] [phone] Otolaryngology 02/21/22 Sophie Ocasio AuD [address] [place] [address] 128175 Investment Trader Audiology 02/21/22 Parth Ellis MD [address] [place] [address] Assigned Heart and Vascular Provider 07/19/22 07/25/22 Roderick Morelos MD [address] [place] [address] Assigned Heart and Vascular Provider 07/26/22 08/08/22 Henny Rosales APRN LOOM STARTER [address] [place] [phone] Assigned Heart and Vascular Provider 08/09/[address] [place] [address] [id number] Registered Dietitian Dietitian, Registered 09/02/22 Christiane Rodríguez MD [address] [place] [address] [address] [place], [place] 768405 Otolaryngology 11/12/22 Luis A Escobedo MD [address] [place] [address] [phone] Assigned Surgical Provider 11/01/22 11/28/22 Chely Fernandez PA-C [address] [place] [address] [id number] Assigned Surgical Provider 11/29/22 02/06/23 Jing Cadena APRN INTERN RETAIL [address] [place] [address] [id number] Clinical Nurse Specialist Anesthesiology 01/15/[address] [facility] [address] [place] [address] 175815 Pharmacist Pharmacist 01/16/23 Luis A Escobedo MD [address] [place] [address] [phone] Assigned Surgical Provider 02/07/23 04/15/23 Geri Loza PA-C [address] [place] [address] 041945 Assigned Surgical Provider 04/16/23 Raina Patterson APRN [facility] [address] [place] [address] Nurse Practitioner Cardiovascular Disease 05/11/23 documented as of this encounter
--- OUTSIDE RECORDS SUMMARY | 2023-06-30 17:00 | XMS_ITS | Encounter Summary ---
Author Name Unknown Organization [facility] Address [address] [place] [address] Care Team Providers Care Striker Out Name Role Phone Edda Agudelo PA-C Primary Care Provider + [phone] Magno Wood MD Unavailable [phone] Elvia Nugent [place] Primary Care Provider Unavailable Parth Ellis MD Unavailable +[phone] Tati Ayala MD Unavailable [phone] Khris Butt MD Unavailable +[phone] MorelosRoderick nunes MD Unavailable [phone] Roderick Morelos MD Unavailable [phone] Magno Wood MD Unavailable [phone] Sophie Ocasio Unavailable +[phone] Parth Ellis MD Unavailable +[phone] MorelosRoderick nunes MD Unavailable [phone] Henny Rosales APRN APPLICATION SUPPORT ADMINISTRATOR Unavailable [phone] [facility] Elvia Nugent [place] Primary Care Pr ovider Sharee Negron RD Unavailable Kaykay Duarte NETWORK SERVICES PROJECT MANAGER Primary Care Provider [phone] Christiane Rodríguez MD Unavailable +[phone] Luis A Escobedo MD Unavailable + [phone] Chely Fernandez PA-C Unavailable +[phone] Cadena Jing Susie FUENTES SPEED BELT SANDER Unavailable + [phone] Radha Lopez [facility] Unavailable [phone] Luis A Escobedo MD Unavailable +[phone] Geri Loza PA-C Unavailable +[phone] Raina Patterson GINA APPLICATION SUPPORT ADMINISTRATOR Unavailable +[phone] Encounter Details Date Type Department Care Team (Late st Contact Info) Description 04/20/2009 Office Visit-[facility] Heart [address] [place] [phone] Lauri Canada APRN CNP NO INFO AVAILABLE [...] Referring Physician: LUIS A WORRELL Referring Clinic: [facility] CURRENT DIAGNOSES 1. - Hypercholesterolemia, 272.0 [...] Mother - Age 34, cancer-breast; Half-Brother - [place]; Sister 1 - CAD; CARDIAC RISK FACTORS [...] Out COVID-19 03/19/2020 03/19/2020 03/19/2020 6:22 PM FIBER LOCKING SUPERVISOR COVID-19 03/19/2020 03/19/2020 04/09/2020 11:3 9 PM FIBER LOCKING SUPERVISOR Rule Out COVID-19 06/19/2021 06/19/2021 06/19/2021 1:37 AM CDT Rule Out COVID-19 10/29/2021 10/29/2021 10/29/2021 1:07 AM CDT documented as of this encounter Care Teams Striker Out Relationship Specialty Start Date End Date Edda Agudelo PA-C [facility] [address] [address] PCP - General 05/04/12 10/11/19 [facility] [place] [address] [address] PCP - General Family Practice 10/12/19 08/18/22 [facility] [address] [place] [address] PCP - General 08/19/22 10/14/22 [place] [address] [place] [address] PCP - General 10/15/22 Magno Wood MD [address] [address] Otolaryngology 05/29/15 08/02/17 Parth Ellis MD [address] [place] [address] Assigned Heart and Vascular Provider 01/13/20 12/13/21 Tati Ayala MD [address] [place] [address] Assigned Endocrinology Provider 01/13/20 12/29/20 Khris Butt MD [address] [place], [place] 707475 Assigned Heart and Vascular Provider 12/14/21 02/14/22 Roderick Morelos MD [address] [place] [phone] MD Cardiovascular Disease 02/03/22 Roderick Morelos MD [address] [place] 950535 Assigned Heart and Vascular Provider 02/15/22 07/18/22 Magno Wood MD [address] [place] [address] [address] [place], [place] 036805 Otolaryngology 02/21/22 Sophie Ocasio AuD [address] [place], [place] 967635 Live In Housekeeper Nanny Audiology 02/21/22 Parth Ellis MD [address] [place] 588105 Assigned Heart and Vascular Provider 07/19/22 07/25/22 Roderick Morelos MD [address] [place] [address] Assigned Heart and Vascular Provider 07/26/22 08/08/22 Henny Rosales, PT SITTER APPLICATION SUPPORT ADMINISTRATOR [address] [place] [address] Assigned Heart and Vascular Provider 08/09/[address] [place] [address] [phone] Registered Dietitian Dietitian, Registered 09/02/22 Christiane Rodríguez MD [address] [place] [address] [address] [place] [address] Otolaryngology 11/12/22 Luis A Escobedo MD [address] [place] [address] [phone] Assigned Surgical Provider 11/01/22 11/28/22 Chely Fernandez PA-C [address] [place] [address] 490995 Assigned Surgical Provider 11/29/22 02/06/23 Jing Cadena, PT SITTER SPEED BELT SANDER [address] [place] [address] [address] [place], [place] [phone] Clinical Nurse Specialist Anesthesiology 01/15/23 Radha Lopez [facility] [address] [place] [address] [phone] Pharmacist Pharmacist 01/16/23 Luis A Escobedo MD [address] [place] [address] [address] [place], [place] 272765 Assigned Surgical Provider 02/07/23 04/15/23 Geri Loza PA-C [address] [place] [address] Assigned Surgical Provider 04/16/23 Raina Patterson APRN CNP [address] [facility] [address] [place] [address] Nurse Practitioner Cardiovascular Disease 05/11/23 documented as of this encounter
--- OUTSIDE RECORDS SUMMARY | 2023-06-30 17:00 | XMS_ITS | Encounter Summary ---
Author Name Unknown Organization [facility] Address [address] [place] [address] Care Team Providers Care Podiatric Technician Name Role Phone Edda Agudelo PA-C Primary Care Provider + [phone] Magno Wood MD Unavailable [phone] Elvia Nugent [place] Primary Care Provider Unavailable Parth Ellis MD Unavailable +[phone] Tati Ayala MD Unavailable +[phone] Khris Butt MD Unavailable +[phone] MorelosRoderick nunes MD Unavailable +[phone] Roderick Morelos MD Unavailable +[phone] Magno Wood MD Unavailable [phone] Sophie Ocasio Unavailable +[phone] Parth Ellis MD Unavailable +[phone] MorelosRoderick nunes MD Unavailable +[phone] Henny Rosales APRN ASSISTANT PROFESSOR OF MUSIC Unavailable +[phone] [facility] Elvia Nugent [place] Primary Care Pr ovider Sharee Negron RD Unavailable Kaykay Duarte RIVET THROWER Primary Care Provider [phone] Christiane Rodríguez MD Unavailable +[phone] Luis A Escobedo MD Unavailable + [phone] Chely Fernandez PA-C Unavailable +[phone] CadenaJing APRN MAIL ROOM Unavailable + [phone] Radha Lopez [facility] Unavailable +[phone] Luis A Escobedo MD Unavailable +[phone] Geri Loza PA-C Unavailable +[phone] Raina Patterson GINA ASSISTANT PROFESSOR OF MUSIC Unavailable +[phone] Encounter Details Date Type Department Care Team (Late st Contact Info) Description 12/06/2004 Office Visit-[facility] Clinic [address] [place] [address] Unknown, DoctorMD Social History Tobacco [...] old Referring Physician: BOY W[place]SON Referring Clinic: [facility] CURRENT DIAGNOSES 1. - Hypercholesterolemia, 272.0 [...] and labs HISTORY OF PRESENT ILLNESS </B><FONT FACE=Calender Runner New> Jimbo Owens is a pleasant, 34-year-old [...] cholesterol 194, ratio 5.4, ALT 14. Her [place] 10-year risk score is 1%. According to that, her LDL cholesterol goal should be less than 160, although given her risk factors and family history, she may certainly benefit watermaster from an LDL cholesterol between 100-120. Jimbo, [...] mcg/inh and Zocor 20 mg IMPRESSIONS/PLAN </B><FONT FACE=Calender Runner New>1) Family history of coronary artery disease [...] Out COVID-19 03/19/2020 03/19/2020 03/19/2020 6:22 PM COMPUTER HARDWARE ENGINEER COVID-19 03/19/2020 03/19/2020 04/09/2020 11:3 9 PM COMPUTER HARDWARE ENGINEER Rule Out COVID-19 06/19/2021 06/19/2021 06/19/2021 1:37 AM CDT Rule Out COVID-19 10/29/2021 10/29/2021 10/29/2021 1:07 AM CDT documented as of this encounter Care Teams Podiatric Technician Relationship Specialty Start Date End Date Edda Agudelo PA-C [facility] [address] [address] PCP - General 05/04/12 10/11/19 Ernestina Martini [address] [place] [address] [address] PCP - General Family Practice 10/12/19 08/18/22 [facility] Jovanna Frederic [address] [place] [address] PCP - General 08/19/22 10/14/22 Kaykay Duarte, RIVET THROWER [address] [place], [place] 304227 PCP - General 10/15/22 Magno Wood MD [address] 356805 Otolaryngology 05/29/15 08/02/17 Parth Ellis MD [address] [place] 806545 Assigned Heart and Vascular Provider 01/13/20 12/13/21 Tati Ayala MD [address] [place], [place] 789750 Assigned Endocrinology Provider 01/13/20 12/29/20 Khris Butt MD [address] [facility] [address] [place] 154325 Assigned Heart and Vascular Provider 12/14/21 02/14/22 Roderick Morelos MD [address] [place] [address] MD Cardiovascular Disease 02/03/22 Roderick Morelos MD [address] [place] 584775 Assigned Heart and Vascular Provider 02/15/22 07/18/22 Magno Wood MD [address] [place] [address] 396 [place], [place] 326835 Otolaryngology 02/21/22 Sophie Ocasio AuD [address] [place], [place] 700055 Commercial Crabber Audiology 02/21/22 Parth Ellis MD [address] [place] 251715 Assigned Heart and Vascular Provider 07/19/22 07/25/22 Roderick Morelos MD [address] [place] [address] Assigned Heart and Vascular Provider 07/26/22 08/08/22 Henny Rosales APRN ASSISTANT PROFESSOR OF MUSIC [address] [place] [phone] Assigned Heart and Vascular Provider 08/09/[address] [place] [address] [phone] Registered Dietitian Dietitian, Registered 09/02/22 Christiane Rodríguez MD [address] [place] [address] 396 [place], [place] 026405 Otolaryngology 11/12/22 Luis A Escobedo MD [address] [place] [address] 972175 Assigned Surgical Provider 11/01/22 11/28/22 Chely Fernandez PA-C [address] [place] [address] 646365 Assigned Surgical Provider 11/29/22 02/06/23 Jing Cadena APRN MAIL ROOM [address] [place] [address] 450 [place], [place] 071965 Clinical Nurse Specialist Anesthesiology 01/15/23 Radha Lopez, [facility] [address] [place] [address] Pharmacist Pharmacist 01/16/23 Luis A Escobedo MD [address] [place] [address] 195 [place] [address] Assigned Surgical Provider 02/07/23 04/15/23 Geri Loza PA-C [address] [place] [address] Assigned Surgical Provider 04/16/23 Raina Patterson APRN ASSISTANT PROFESSOR OF MUSIC [address] [place] [address] Nurse Practitioner Cardiovascular Disease 05/11/23 documented as of this encounter
--- OUTSIDE RECORDS SUMMARY | 2023-06-30 17:00 | XMS_ITS | Encounter Summary ---
Author Name Unknown Organization [facility] Address [address], [place] [address] Care Team Providers Care Solar Thermal Technician Name Role Phone Kaykay Duarte APRN, LEAH Primary Care Provid er Encounter Details Date Type Department Care Team (Late st Contact Info) Description 05/15/2023 Notes/Orders Centralized Outreach [address] [place] [address]W [place] [address] Mikayla Sweeney MD [address] [place] [address] Type 2 diabetes mellitus without [...] (HRC) documented in this encounter Care Teams Solar Thermal Technician Relationship Specialty Start Date End Date Kaykay Duarte, MUSIC PRODUCER, [employer] [place] MACHINE TENDER [address] [place] [address] PCP - General Nurse Practitioner 10/25/21 documented as of this encounter
--- OUTSIDE RECORDS SUMMARY | 2023-06-30 17:00 | XMS_ITS | Encounter Summary ---
Author Name Unknown Organization [facility] Address [address] [place] [address] Care Team Providers Care Bioengineer Name Role Phone Kaykay Duarte APRN, LEAH Primary Care Provid er Reason for Visit * Reason Comments PALPITATIONS--ED TACHYCARDIA Encounter Details Date Type Department Care Team (Late st Contact Info) Description 05/09/2023 Nurse Triage Careline [address] [place], [place] [address] Unknown, Physician [address] [place] [address] PALPITATIONS--ED; TACHYCARDIA Social History Tobacco [...] weakness Protocols used: Heart Rate and Heartbeat [id number] Recommendation: Go to ED now. Have someone else drive. Patient verbalizes understanding and agrees with this plan. Advised patient/caller to call back CareLine if there are further questions or concerns. The CareLine is available 13/10. Nury Ledezma RN Careline 5:10 PM 05/09/2023 NG MACHINE OPERATOR PAPER BAGS * Lakshmi Wade - 05/09/2023 4:54 PM CST Verified patient using 3 identifiers: Yes Caller reports the following red flag symptoms: PVC/palpitations. 133-145 Plan: Transferred directly to a CareLine RN. NG MACHINE OPERATOR PAPER BAGS documented in this encounter Plan of Treatment Not on file documented as of this encounter Visit Diagnoses Not on filedocumented in this encounter Care Teams Bioengineer Relationship Specialty Start Date End Date Kaykay Duarte, LENS GRINDER APPRENTICE, NFL PLAYER [address] [place] [address] PCP - General Nurse Practitioner 10/25/21 documented as of this encounter
--- OUTSIDE RECORDS SUMMARY | 2023-06-30 17:00 | XMS_ITS | Encounter Summary ---
Author Name Unknown Organization [facility] Address [address] [place] [address] Care Team Providers Care Installer Metal Flooring Name Role Phone Edda Agudelo PA-C Primary Care Provider + [phone] Magno Wood MD Unavailable [phone] Elvia Nugent [place] Primary Care Provider Unavailable Parth Ellis MD Unavailable +[phone] Tati Ayala MD Unavailable +[phone] Khris Butt MD Unavailable +[phone] MorelosRoderick nunes MD Unavailable +[phone] Roderick Morelos MD Unavailable +[phone] Magno Wood MD Unavailable [phone] Sophie Ocasio Unavailable +[phone] Parth Ellis MD Unavailable +[phone] OmrelosRoderick nunes MD Unavailable +[phone] Henny Rosales APRN PREDATORY ANIMAL EXTERMINATOR Unavailable +[phone] [facility] Elvia Nugent [place] Primary Care Pr ovider Sharee Negron RD Unavailable Kaykay Duarte SEAL MIXING OPERATOR Primary Care Provider [phone] Christiane Rodríguez MD Unavailable +[phone] Luis A Escobedo MD Unavailable + [phone] Chely Fernandez PA-C Unavailable +[phone] Jing Cadena NURSE ADMINISTRATOR ELIGIBILITY ANALYST Unavailable + [phone] Radha Lopez [facility] Unavailable +[phone] Luis A Escobedo MD Unavailable + [phone] Geri Loza PA-C Unavailable +[phone] Raina Patterson NURSE ADMINISTRATOR PREDATORY ANIMAL EXTERMINATOR Unavailable [phone] Encounter Details Date Type Department Care Team (Late st Contact Info) Description 03/31/2006 Office Visit-[facility] [place] [address] [facility] [address] [place] [phone] Imani Ott, NURSE ADMINISTRATOR PREDATORY ANIMAL EXTERMINATOR [address] [facility] [address] [place] [address] Social History Tobacco Use Types Packs/Day Years [...] old Referring Physician: BOY WATSON Referring Clinic: [facility] CURRENT DIAGNOSES 1. - Hypercholesterolemia, 272.0 2. [...] delightful 35-year-old female who presents to the [facility] today for a follow-up visit [...] Mother - Age 34, cancer-breast; Half-Brother - [place]; Sister 1 - CAD; <FONT COLOR=#[id number]><FONT POINT=10>CARDIAC RISK FACTORS Tobacco Abuse: negative; Family [...] Out COVID-19 03/19/2020 03/19/2020 03/19/2020 6:22 PM PACKER DENTURE COVID-19 03/19/2020 03/19/2020 04/09/2020 11:3 9 PM PACKER DENTURE Rule Out COVID-19 06/19/2021 06/19/2021 06/19/2021 1:37 AM CDT Rule Out COVID-19 10/29/2021 10/29/2021 10/29/2021 1:07 AM CDT documented as of this encounter Care Teams Installer Metal Flooring Relationship Specialty Start Date End Date Edda Agudelo PA-C [facility] [address] [place] [address] PCP - General 05/04/12 10/11/19 Ernestina Martini [address] [facility] 396 [place] [address] PCP - General Family Practice 10/12/19 [facility]18[facility]22 [facility] [place] [address] [place], [place] 070197 PCP - General 08/19/22 10/14/22 [place] [address] [place] [address] PCP - General 10/15/22 Magno Wood MD [address] [facility] 396 [place], [place] 706825 Otolaryngology 05/29/15 08/02/17 Parth Ellis MD [address] [place] [address] Assigned Heart and Vascular Provider 01/13/20 12/13/21 Tati Ayala MD [address] [place], [place] [address] Assigned Endocrinology Provider 01/13/20 12/29/20 Khris Butt MD [address] [facility] [address] [place] [address] Assigned Heart and Vascular Provider 12/14/21 02/14/22 Roderick Morelos MD [address] [facility] [place] [address]125 Cardiovascular Disease 02/03/22 Roderick Morelos MD [address] [facility] [place] 142285 Assigned Heart and Vascular Provider 02/15/22 07/18/22 Magno Wood MD [address] [place] [address] Otolaryngology 02/21/22 Sophie Ocasio AuD [address] [place] [address] 151915 Machine Worker Audiology 02/21/22 Parth Ellis MD [address] [place] 981835 Assigned Heart and Vascular Provider 07/19/22 07/25/22 Roderick Morelos MD [address] [place] [address] Assigned Heart and Vascular Provider 07/26/22 08/08/22 Henny Rosales APRN PREDATORY ANIMAL EXTERMINATOR [address] [facility] [place] [phone] Assigned Heart and Vascular Provider 08/09/[address] [place] [address] [id number] Registered Dietitian Dietitian, Registered 09/02/22 Christiane Rodríguez MD [address] [place] [address] 396 [place], [place] 015625 Otolaryngology 11/12/22 Lius A Escobedo MD [address] [place] [address] 228955 Assigned Surgical Provider 11/01/22 11/28/22 Chely Fernandez PA-C [address] [place] [address] Assigned Surgical Provider 11/29/22 02/06/23 Jing Cadena, NURSE ADMINISTRATOR ELIGIBILITY ANALYST [address] [place] [address] 450 [place], [place] 015135 Clinical Nurse Specialist Anesthesiology 01/15/23 Radha Lopez, [facility] [address] [place] [address] Pharmacist Pharmacist 01/16/23 Luis A Escobedo MD [address] [place] [address] 010865 Assigned Surgical Provider 02/07/23 04/15/23 Geri Loza PA-C [address] [place] [address] 385435 Assigned Surgical Provider 04/16/23 Raina Patterson, GIAN PREDATORY ANIMAL EXTERMINATOR [address] [facility] [address] [place] [address] 677745 Nurse Practitioner Cardiovascular Disease 05/11/23 documented as of this encounter
--- OUTSIDE RECORDS SUMMARY | 2023-06-30 17:00 | XMS_ITS | Encounter Summary ---
Author Name Unknown Organization [facility] Address [address] [place] [address] Care Team Providers Care Onshore Diver Name Role Phone Edda Agudelo PA-C Primary Care Provider + [phone] Magno Wood MD Unavailable [phone] Elvia Nugent [place] Primary Care Provider Unavailable Parth Ellis MD Unavailable +[phone] Tati Ayala MD Unavailable +[phone] Khris Butt MD Unavailable +[phone] MorelosRoderick nunes MD Unavailable [phone] Roderick Morelos MD Unavailable [phone] Magno Wood MD Unavailable [phone] Sophie Ocasio Unavailable +[phone] Parth Ellis MD Unavailable +[phone] MorelosRoderick nunes MD Unavailable +[phone] Henny Rosales APRN SLOT EDITOR Unavailable [phone] [facility] Elvia Nugent [place] Primary Care Pr ovider Sharee Negron RD Unavailable Kaykay Duarte PIN MACHINE OPERATOR Primary Care Provider [phone] Christiane Rodríguez MD Unavailable +[phone] Luis A Escobedo MD Unavailable + [phone] Chely Fernandez PA-C Unavailable +[phone] Jing Cadena APRN HORIZONTAL BORING MILL SET UP OPERATOR Unavailable + [phone] Radha Lopez [facility] Unavailable +[phone] Luis A Escobedo MD Unavailable +[phone] Geri Loza PA-C Unavailable [phone] Yesenia Raina FUENTES SLOT EDITOR Unavailable +[phone] Encounter Details Date Type Department Care Team (Late st Contact Info) Description 01/25/2004 Office Visit-[facility] Heart [place] [address] [place] [address] Unknown, DoctorMD Social History Tobacco [...] BOY WATSON Referring Clinic: [facility] CURRENT DIAGNOSES 1. - Shortness of [...] 2 weeks 4. F/U with Lauri [place], DEBBY, ANP f/u echo, gxt, chol Reji Li M.D. documented in this encounter Plan of Treatment Not on file documented as of this encounter Visit Diagnoses Not on filedocumented in this encounter Additional Health Concerns Infection Onset Date Last Indicated Resolved Time Rule Out COVID-19 03/19/2020 03/19/2020 03/19/2020 6:22 PM TRADE SPECIALIST COVID-19 03/19/2020 03/19/2020 04/09/2020 11:3 9 PM TRADE SPECIALIST Rule Out COVID-19 06/19/2021 06/19/2021 06/19/2021 1:37 AM CDT Rule Out COVID-19 10/29/2021 10/29/2021 10/29/2021 1:07 AM CDT documented as of this encounter Care Teams Onshore Diver Relationship Specialty Start Date End Date Edda Agudelo PA-C [facility] [address] [place] [address]118 PCP - General 05/04/12 10/11/19 Ernestina Martini 420 [facility] 396 [place] [address] PCP - General Family Practice 10/12/19 08/18/22 [place] [address] [place] [address] PCP - General 08/19/22 10/14/22 [place] [address] [facility] [place] [address] PCP - General 10/15/22 Magno Wood MD [address] [place] [facility] [address] [place], [place] 0[address] Otolaryngology 05/29/15 08/02/17 Parth Ellis MD [address] [place] 923135 Assigned Heart and Vascular Provider 01/13/20 12/13/21 Tati Ayala MD [address] [place], [place] 223610 Assigned Endocrinology Provider 01/13/20 12/29/20 Khris Butt MD [address] [place] [address] [place] 106685 Assigned Heart and Vascular Provider 12/14/21 02/14/22 Roderick Morelos MD [address] [place] 368685 Cardiovascular Disease 02/03/22 Roderick Morelos MD [address] [place] [address] Assigned Heart and Vascular Provider 02/15/22 07/18/22 Magno Wood MD [address] 888415 Otolaryngology 02/21/22 Sophie Ocasio AuD [address] [place] [address] 986155 Decker Operator Audiology 02/21/22 Parth Ellis MD [address] [place], [place] 0[address] Assigned Heart and Vascular Provider 07/19/22 07/25/22 Roderick Morelos MD [address] [place], [place] 327055 Assigned Heart and Vascular Provider 07/26/22 08/08/22 Henny Rosales APRN SLOT EDITOR [address] [place] [address] Assigned Heart and Vascular Provider 08/09/[address] [place] [address] [phone] Registered Dietitian Dietitian, Registered 09/02/22 Christiane Rodríguez MD [address] [place] [address] 937035 Otolaryngology 11/12/22 Luis A Escobedo MD [address] [place] [address] 121475 Assigned Surgical Provider 11/01/22 11/28/22 Chely Fernandez PA-C [address] [place], [place] 281395 Assigned Surgical Provider 11/29/22 02/06/23 Jing Cadena APRN HORIZONTAL BORING MILL SET UP OPERATOR [address] [facility] 450 [place], [place] 785555 Clinical Nurse Specialist Anesthesiology 01/15/23 Radha Lopez, [facility] [address] [place] [address] [phone] Pharmacist Pharmacist 01/16/23 Luis A Escobedo MD 420 [facility] 195 [place], [place] 334685 Assigned Surgical Provider 02/07/23 04/15/23 Geri Loza PA-C [address] [place] [address] 634025 Assigned Surgical Provider 04/16/23 Raina Patterson APRN SLOT EDITOR [address] [facility] [address] [place], [place] 915875 Nurse Practitioner Cardiovascular Disease 05/11/23 documented as of this encounter
--- OUTSIDE RECORDS SUMMARY | 2023-06-30 17:00 | XMS_ITS | Encounter Summary ---
Author Name Unknown Organization [facility] Address [address], [place] [address] Care Team Providers Care Fire Lieutenant Marine Name Role Phone Kaykay Duarte APRN, LEAH Primary Care Provid er Reason for Visit * Procedure/Equipment (Routine) - Incomplete Specialty Diagnoses / Procedures Referred By Osmar t Referred To Contact Diagnoses Hypothyroidism, unspecified type (HRC) Procedures US Thyroid Elizabeth Herndon APRN, CNM [address] [address] [place] [address] Referral ID Status Reason Start Date Expiration Date V isits Requested Visits Authorized [id number] Incomplete 04/29/2023 07/28/2024 1 1 Encounter Details Date Type Department Care Team (Latest Contact Info) Description 04/29/2023 2:30 PM TAKE DOWN INSPECTOR Ancillary Procedure [place] [address] Ultrasound [address] [place] [address] Elizabeth Herndon APRN, CNM [address] [address] [place] [address] Hypothyroidism, unspecified type (HRC) Social [...] Comments US THYROID Routine 04/29/2023 2:31 PM TAKE DOWN INSPECTOR Hypothyroidism, unspecified type (HRC) documented in this encounter Results * US Thyroid (04/29/2023 2:31 PM TAKE DOWN INSPECTOR) Anatomical Region Laterality Modality Neck, Head Ultrasound 04/29/2023 2:11 PM TAKE DOWN INSPECTOR Impressions 04/29/2023 4:30 PM TAKE DOWN INSPECTOR COMPARISON: None. TECHNIQUE: Ultrasound examination of the [...] (HRC) documented in this encounter Care Teams Fire Lieutenant Marine Relationship Specialty Start Date End Date Kaykay Duarte APRN, SUPERVISING DEPUTY [address] [place] [address] PCP - General Nurse Practitioner 10/25/21 documented as of this encounter
--- OUTSIDE RECORDS SUMMARY | 2023-06-30 17:00 | XMS_ITS | Encounter Summary ---
Author Name Unknown Organization [facility] Address [address] [place] [address] Care Team Providers Care Second Vp Hr Assessment Name Role Phone Edda Agudelo PA-C Primary Care Provider + [phone] Magno Wood MD Unavailable Elvia Nugent [place] Primary Care Provider Unavailable Parth Ellis MD Unavailable [phone] Tati Ayala MD Unavailable [phone] Khris Butt MD Unavailable +[phone] MorelosRoderick nunes MD Unavailable [phone] Roderick Morelos MD Unavailable [phone] Magno Wood MD Unavailable [phone] Sophie Ocasio Unavailable +[phone] Parth Ellis MD Unavailable +[phone] MorelosRoderick nunes MD Unavailable [phone] Henny Rosales APRN VISITOR SERVICES SPECIALIST Unavailable +[phone] [facility] Elvia Nugent [place] Primary Care Pr ovider Sharee Negron RD Unavailable Kaykay Duarte SENIOR POLICY ASSOCIATE Primary Care Provider [phone] Christiane Rodríguez MD Unavailable +[phone] Luis A Escobedo MD Unavailable +[phone] Chely Fernandez PA-C Unavailable +[phone] CadenaJing jacob Susie [facility] Unavailable + [phone] Radha Lopez [facility] Unavailable [phone] Luis A Escobedo MD Unavailable +[phone] Geri Loza PA-C Unavailable +[phone] Yesenia Raina FUENTES VISITOR SERVICES SPECIALIST Unavailable Encounter Details Date Type Department Care Team (Late st Contact Info) Description 12/16/2005 Office Visit-[facility] Heart [facility] [address] [facility] [address] [place] [address] Reji Li MD [address] [facility] [address] [place] [address] Social History Tobacco Use Types [...] WATSON Referring Clinic: [facility] CURRENT DIAGNOSES 1. - Hypercholesterolemia, [...] Mother - Age 34, cancer-breast; Half-Brother - [place]; Sister 1 - CAD; SOCIAL HISTORY Alcohol [...] valve. She just had cholesterols done at [facility] yesterday. She will call us next [...] valve. She just had cholesterols done at [facility] yesterday. She will call us next week for the results to determine if weneed to increase her Vytorin. Total consult time: 25 minutes, greater than 50% counseling. Reji Li M.D./[email or web address]/[id number] cc:Luis A Vincent M.D. documented in this encounter Plan of Treatment Not on file documented as of this encounter Visit Diagnoses Not on filedocumented in this encounter Additional Health Concerns Infection Onset Date Last Indicated Resolved Time Rule Out COVID-19 03/19/2020 03/19/2020 03/19/2020 6:22 PM PATIENT CARE SECRETARY COVID-19 03/19/2020 03/19/2020 04/09/2020 11:3 9 PM PATIENT CARE SECRETARY Rule Out COVID-19 06/19/2021 06/19/2021 06/19/2021 1:37 AM CDT Rule Out COVID-19 10/29/2021 10/29/2021 10/29/2021 1:07 AM CDT documented as of this encounter Care Teams Second Vp Hr Assessment Relationship Specialty Start Date End Date Edda Agudelo PA-C [facility] [address] [place] [address] PCP - General 05/04/12 10/11/19 Ernestina Martini [address] [place] [address] [facility] [address] [place] [address] PCP - General Family Practice 10/12/19 08/18/22 [facility] Elvia Nugent [place] [address] [place] [address] PCP - General 08/19/22 10/14/22 [place] [address] [place] [address] PCP - General 10/15/22 Magno Wood MD 420 [facility] 396 [place] [address] Otolaryngology 05/29/15 08/02/17 Parth Ellis MD [address] [place] [address] Assigned Heart and Vascular Provider 01/13/20 12/13/21 Tati Ayala MD [address] [place], [place] 6[address]250 Assigned Endocrinology Provider 01/13/20 12/29/20 Khris Butt MD [address] [facility] [address] [place] [address] Assigned Heart and Vascular Provider 12/14/21 02/14/22 Roderick Morelos MD [address] [place] [address] Cardiovascular Disease 02/03/22 Roderick Morelos MD [address] [place] [address] Assigned Heart and Vascular Provider 02/15/22 07/18/22 Magno Wood MD [address] [place] [address] [address] [place], [place] 157855 Otolaryngology 02/21/22 Sophie Ocasio AuD [address] [place], [place] 018645 Relocation Associate Audiology 02/21/22 Parth Ellis MD [address] [place] 685755 Assigned Heart and Vascular Provider 07/19/22 07/25/22 Roderick Morelos MD [address] [place] [address] Assigned Heart and Vascular Provider 07/26/22 08/08/22 Henny Rosales APRN VISITOR SERVICES SPECIALIST [address] [place] [address] Assigned Heart and Vascular Provider 08/09/[address] [place], [place] 155605 Registered Dietitian Dietitian, Registered 09/02/22 Christiane Rodríguez MD 420 [facility] 396 [place], [place] [address]885 Otolaryngology 11/12/22 Luis A Escobedo MD [address] [place] [address] 195 [place], [place] 026025 Assigned Surgical Provider 11/01/22 11/28/22 Chely Fernandez PA-C [address] [place] [address] 095735 Assigned Surgical Provider 11/29/22 02/06/23 Jing Cadena APRN PROSTHETICS LAB TECHNICIAN [address] [place] [address] 450 [place], [place] 541465 Clinical Nurse Specialist Anesthesiology 01/15/23 Radha Lopez, [facility] [address] [place] [address] 357265 Pharmacist Pharmacist 01/16/23 Luis A Escobedo MD [address] [place] [address] 141085 Assigned Surgical Provider 02/07/23 04/15/23 Geri Loza PA-C [address] [place] [address] 224025 Assigned Surgical Provider 04/16/23 Raina Patterson, GINA VISITOR SERVICES SPECIALIST [address] [facility] [address] [place] 797605 Nurse Practitioner Cardiovascular Disease 05/11/23 documented as of this encounter
--- OUTSIDE RECORDS SUMMARY | 2023-06-30 17:00 | XMS_ITS | Encounter Summary ---
Author Name Unknown Organization [facility] Address [address] [place] [address] Care Team Providers Care Forestry Worker Name Role Phone Kaykay Duarte APRN, LEAH Primary Care Provid er Reason for Referral * Consult/Transfer Care (Routine) - New Request Specialty Diagnoses / Procedures Referred By Osmar gallego Referred To Contact Diagnoses Hoarseness Change in voice Jose Oconnor MD [address] [place] [address] Referral ID Status Reason Start Date Expiration Date V isits Requested Visits Authorized [id number] New Request 05/20/2023 08/18/2024 1 1 Scheduling Instructions Your clinician has recommended an appointment with Elvia Nugent Otolaryngology (ENT) - Head & Neck Surgery. You may call [phone] for help scheduling your appointment. We suggest you call your health insurance company about your coverage and benefits for this appointment. Question Answer Appointment Urgency? Within 1 Week (Urgent) Reason for visit? hoarse voice, unable to sing x4 weeks. Change in voice not improving. Consider laryngoscopy NE ENGINE MACHINIST Reason for Visit * Reason Comments HOARSENESS X1 month. Unable to talk above a certain pitch. Encounter Details Date Type Department Care Team ([facility] st Contact Info) Description 05/20/2023 2:30 PM MARINE ENGINE MACHINIST [facility] [address] [place] [address] Jose Oconnor MD [address] [place], [place] 55[address] Hoarseness (Primary Dx); Change in voice Social [...] Comments Blood Pressure 121/77 05/20/2023 2:19 PM MARINE ENGINE MACHINIST Pulse 86 05/20/2023 2:19 PM MARINE ENGINE MACHINIST Temperature - - Respiratory Rate - - Oxygen Saturation - - Inhaled Oxygen Concentration - - Weight 120.5 kg (265 lb 9.6 oz) 05/20/2023 2:19 PM MARINE ENGINE MACHINIST Height - - Body Mass Index 42.87 [...] on for 4-5 weeks. She did see erp programmer for thyroid issues and had US. That [...] by mouth daily. 90 Tablet 3 cyanocobalamin ([id number]) 1000 MCG/ML injection Inject 1,000 mcg subcutaneously [...] when interpreting information found in this chart. NE ENGINE MACHINIST documented in this encounter Plan of Treatment Scheduled Referrals Name Type Priority Associated Diagnoses Orde r Schedule Otolaryngology Consult Adult/Peds Referral Routine Hoarseness Change in voice Ordered: 05/20/2023 documented as of this encounter Visit Diagnoses Diagnosis Hoarseness- Primary Dysphonia Change in voice Other voice and resonance disorders documented in this encounter Care Teams Forestry Worker Relationship Specialty Start Date End Date Kaykay Duarte APRN, PIPE INSPECTOR [address] [place] [address] PCP - General Nurse Practitioner 10/25/21 documented as of this encounter
--- OUTSIDE RECORDS SUMMARY | 2023-06-30 17:00 | XMS_ITS | Encounter Summary ---
Author Name Unknown Organization [facility] Address [address], [place] [address] Care Team Providers Care Machine Deicer Element Winder Name Role Phone Kaykay Duarte APRN, CNP Primary Care Provid er Encounter Details Date Type Department Care Team (Late st Contact Info) Description 05/09/2023 Partner ED HIM DEPARTMENT Provider, [place] [address] [facility] 05/09/2023 Social History Tobacco Use Types Packs/Day [...] filedocumented in this encounter Care Teams Machine Deicer Element Winder Relationship Specialty Start Date End Date Kaykay Duarte APRN, CNP [address] [place] [address] PCP - General Nurse Practitioner 10/25/21 documented as of this encounter
--- OUTSIDE RECORDS SUMMARY | 2023-06-30 17:00 | XMS_ITS | Encounter Summary ---
Author Name Unknown Organization [facility] Address [address], [place] [address] Care Team Providers Care Core Piler Name Role Phone Kaykay Duarte APRN, LEAH Primary Care Provid er Reason for Visit * Reason Comments Follow-up Encounter Details Date Type Department Care Team (Late st Contact Info) Description 06/03/2023 Telephone [facility] [address] Endocrinology [facility] [place] [address] Mikayla Sweeney MD [address] [place] [address] Follow-up Social History Tobacco Use [...] management clinic she is working with at [facility]. * Federica Marinelli RN - 06/04/2023 11:09 AM CDT Jessica RN from [facility] called and said Dr Parth Patterson who ordered the labs wanted to discuss withDr Sweeney. He asked for an email to discuss [email or web address] * Osiris Quispe RN - 06/03/2023 4:25 PM CDT Pt calling in, she had labs done through a company called [facility]. She has results, and will be sending through [facility]- she calls back and states she is [...] on filedocumented in this encounter Care Teams Core Piler Relationship Specialty Start Date End Date Kaykay Duarte APRN, MAINFRAME APPLICATIONS DEVELOPER [address] [place] [address] PCP - General Nurse Practitioner 10/25/21 documented as of this encounter
--- OUTSIDE RECORDS SUMMARY | 2023-06-30 17:00 | XMS_ITS | Encounter Summary ---
Author Name Unknown Organization [facility] Address [address] [place] [address] Care Team Providers Care Hospice Rn Name Role Phone Edda Agudelo PA-C Primary Care Provider + [phone] Magno Wood MD Unavailable [phone] Elvia Nugent [place] Primary Care Provider Unavailable Parth Ellis MD Unavailable [phone] Tati Ayala MD Unavailable [phone] Khris Butt MD Unavailable [phone] MorelosRoderick nunes MD Unavailable [phone] Roderick Morelos MD Unavailable [phone] Magno Wood MD Unavailable [phone] Sophie Ocasio Unavailable [phone] Parth Ellis MD Unavailable [phone] MorelosRoderick nunes MD Unavailable [phone] Henny Rosales APRN JOB PLACEMENT COUNSELOR Unavailable [phone] [facility] Elvia Nugent [place] Primary Care Pr ovider Sharee Negron RD Unavailable Kaykay Duarte TOOL DESIGN DRAFTER Primary Care Provider [phone] Christiane Rodríguez MD Unavailable [phone] Luis A Escobedo MD Unavailable + [phone] Chely Fernandez PA-C Unavailable +[phone] Cadena Jing Susie FUENTES [facility] Unavailable + [phone] Radha Lopez [facility] Unavailable [phone] Luis A Escobedo MD Unavailable [phone] Geri Loza PA-C Unavailable [phone] Yesenia Raina FUENTES JOB PLACEMENT COUNSELOR Unavailable Encounter Details Date Type Department Care Team (Late st Contact Info) Description 02/08/2007 Office Visit-[facility] Heart [facility] [address] [facility] [address] [place] [address] Reji Li MD [address] [facility] [address] [place] [address] Social History Tobacco Use Types [...] dose Vytorin. Her LDL goal should be [id number], and ideally below 100, with HDL above [...] Mother - Age 34, cancer-breast; Half-Brother - PA; Sister 1 - CAD; SOCIAL HISTORY Alcohol [...] fen mitral valve 2. F/U with Imani Ott, MSN, JOB PLACEMENT COUNSELOR 3 months Reji Li M.D. documented in this encounter Plan of Treatment Not on file documented as of this encounter Visit Diagnoses Not on filedocumented in this encounter Additional Health Concerns Infection Onset Date Last Indicated Resolved Time Rule Out COVID-19 03/19/2020 03/19/2020 03/19/2020 6:22 PM HVAC PROJECT MANAGER COVID-19 03/19/2020 03/19/2020 04/09/2020 11:3 9 PM HVAC PROJECT MANAGER Rule Out COVID-19 06/19/2021 06/19/2021 06/19/2021 1:37 AM CDT Rule Out COVID-19 10/29/2021 10/29/2021 10/29/2021 1:07 AM CDT documented as of this encounter Care Teams Hospice Rn Relationship Specialty Start Date End Date Edda Agudelo PA-C [facility] [address] [place] [address] 841108 PCP - General 05/04/12 10/11/19 Ernestina Martini 420 [facility] [address] [place] [address] PCP - General Family Practice 10/12/19 08[facility]18[facility] [address] [place], [place] [id number] PCP - General 08/19/22 10/14/22 Kaykay Duarte, TOOL DESIGN DRAFTER [address] [place] [address] PCP - General 10/15/22 Magno Wood MD [address] [facility] [address] [place] [address] Otolaryngology 05/29/15 08/02/17 Parth Ellis MD [address] [place] [address] Assigned Heart and Vascular Provider 01/13/20 12/13/21 Tati Ayala MD [address] [facility] [address] [place], [place] [address]490 Assigned Endocrinology Provider 01/13/20 12/29/20 Khris Butt MD [address] [place] [address] Assigned Heart and Vascular Provider 12/14/21 02/14/22 Roderick Morelos MD [address] [place] [address] Cardiovascular Disease 02/03/22 Roderick Morelos MD [address] [place] [address] Assigned Heart and Vascular Provider 02/15/22 07/18/22 Magno Wood MD [address] [facility] [address] [place] [address] Otolaryngology 02/21/22 Sophie Ocasio AuD 9 [place], [place] 648645 Biology Instructor Audiology 02/21/22 Parth Ellis MD [address] [place], [place] 114[address] Assigned Heart and Vascular Provider 07/19/22 07/25/22 Roderick Morelos MD [address] [place], [place] 933015 Assigned Heart and Vascular Provider 07/26/22 08/08/22 Henny Rosales APRN JOB PLACEMENT COUNSELOR [address] [place] [address] Assigned Heart and Vascular Provider 08/09/[address] [place] [address] [id number] Registered Dietitian Dietitian, Registered 09/02/22 Christiane Rodríguez MD [address] [place] [address] [address] [place], [place] 172335 Otolaryngology 11/12/22 Luis A Escobedo MD [address] [place] [address] 195 [place] [address] Assigned Surgical Provider 11/01/22 11/28/22 Chely Fernandez PA-C [address] [place] [address] 696275 Assigned Surgical Provider 11/29/22 02/06/23 Jing Cadena APRN PIANO REGULATOR INSPECTOR 420 [facility] [address] [place] [address] Clinical Nurse Specialist Anesthesiology 01/15/23 Radha Lopez [facility] [address] [place] [address] 026205 Pharmacist Pharmacist 01/16/23 Luis A Escobedo MD 420 [facility] [address] [place], [place] 215265 Assigned Surgical Provider 02/07/23 04/15/23 Geri Loza PA-C [address] [place] [address] [id number] Assigned Surgical Provider 04/16/23 Raina Patterson APRN JOB PLACEMENT COUNSELOR [address] [place], [place] 980415 Nurse Practitioner Cardiovascular Disease 05/11/23 documented as of this encounter
--- OUTSIDE RECORDS SUMMARY | 2023-06-30 17:00 | XMS_ITS | Encounter Summary ---
Author Name Unknown Organization [facility] Address [address], [place] [address] Care Team Providers Care Optical Systems Engineer Name Role Phone Kaykay Duarte APRN, LEAH Primary Care Provid er Encounter Details Date Type Department Care Team (Latest Contact Info) Description 06/02/2023 Orders Only HIM DEPARTMENT Provider, [place] [address] Social History Tobacco Use Types Packs/Day Years [...] on filedocumented in this encounter Care Teams Optical Systems Engineer Relationship Specialty Start Date End Date Kaykay Duarte, SVP DIGITAL AD SALES, RN CARDIOVASCULAR ICU [address] [place] [address] PCP - General Nurse Practitioner 10/25/21 documented as of this encounter
--- OUTSIDE RECORDS SUMMARY | 2023-06-30 17:00 | XMS_ITS | Encounter Summary ---
Author Name Unknown Organization [facility] Address [address] [place] [address] Care Team Providers Care Shear Assembler Name Role Phone Edda Agudelo PA-C Primary Care Provider + [phone] Magno Wood MD Unavailable [phone] Elvia Nugent [place] Primary Care Provider Unavailable Parth Ellis MD Unavailable [phone] Tati Ayala MD Unavailable [phone] Khris Butt MD Unavailable [phone] MorelosRoderick nunes MD Unavailable Roderick Morelos MD Unavailable [phone] Magno Wood MD Unavailable [phone] Sophie Ocasio Unavailable [phone] Parth Ellis MD Unavailable [phone] MorelosRoderick nunes MD Unavailable [phone] Henny Rosales APRN SERVICE STATION CONSOLE OPERATOR Unavailable [phone] [facility] Elvia Nugent [place] Primary Care Pr ovider Sharee Negron RD Unavailable Kaykay Duarte ASSOCIATE STORE MANAGER Primary Care Provider [phone] Christiane Rodríguez MD Unavailable [phone] Luis A Escobedo MD Unavailable + [phone] Chely Fernandez PA-C Unavailable [phone] Jing Cadena APRN DRAWING KILN SUPERVISOR Unavailable + [phone] Radha Lopez Marte [facility] Unavailable [phone] Luis A Escobedo MD Unavailable + [phone] Geri Loza PA-C Unavailable [phone] Raina Patterson GINA SERVICE STATION CONSOLE OPERATOR Unavailable [phone] Encounter Details Date Type Department Care Team (Late st Contact Info) Description 10/20/2001 Office Visit-[facility] Heart [address] [place] [address] Unknown, DoctorMD Social History Tobacco [...] Out COVID-19 03/19/2020 03/19/2020 03/19/2020 6:22 PM CORN CROP SUPERVISOR COVID-19 03/19/2020 03/19/2020 04/09/2020 11:3 9 PM CORN CROP SUPERVISOR Rule Out COVID-19 06/19/2021 06/19/2021 06/19/2021 1:37 AM CDT Rule Out COVID-19 10/29/2021 10/29/2021 10/29/2021 1:07 AM CDT documented as of this encounter Care Teams Shear Assembler Relationship Specialty Start Date End Date Edda Agudelo PA-C [facility] [address] [address] PCP - General 05/04/12 10/11/19 Sheila [place]le [address] [address] PCP - General Family Practice 10/12/19 08/18/22 [facility] [address] [place], [place] 461767 PCP - General 08/19/22 10/14/22 [place] [address] [place], [place] 358817 PCP - General 10/15/22 Magno Wood MD [address] 239[address] Otolaryngology 05/29/15 08/02/17 Parth Ellis MD [address] [place] 283345 Assigned Heart and Vascular Provider 01/13/20 12/13/21 Tati Ayala MD [address] [place], [place] 530920 Assigned Endocrinology Provider 01/13/20 12/29/20 Khris Butt MD [address] [facility] [address] [place] [address] Assigned Heart and Vascular Provider 12/14/21 02/14/22 Roderick Morelos MD [address] [place] [address] Cardiovascular Disease 02/03/22 Roderick Morelos MD [address] [place] [address] Assigned Heart and Vascular Provider 02/15/22 07/18/22 Magno Wood MD [address] [place] [address] Otolaryngology 02/21/22 Sophie Ocasio AuD [address] [place] [address] [phone] Soil Technologist Audiology 02/21/22 Parth Ellis MD [address] [place] 846835 Assigned Heart and Vascular Provider 07/19/22 07/25/22 Roderick Morelos MD [address] [place] [address] Assigned Heart and Vascular Provider 07/26/22 08/08/22 Henny Rosales APRN SERVICE STATION CONSOLE OPERATOR [address] [place] [address] Assigned Heart and Vascular Provider 08/09/[address] [place] [address] [id number] Registered Dietitian Dietitian, Registered 09/02/22 Christiane Rodríguez MD [address] [place] [address] 396 [place], [place] 706895 Otolaryngology 11/12/22 Luis A Escobedo MD 420 [facility] [address] [place], [place] 433505 Assigned Surgical Provider 11/01/22 11/28/22 Chely Fernandez PA-C [address] [place] [address] 947475 Assigned Surgical Provider 11/29/22 02/06/23 Jing Cadena, LEGEND MAKER DRAWING KILN SUPERVISOR 420 [facility] 450 [place], [place] 8[address]85 Clinical Nurse Specialist Anesthesiology 01/15/23 Radha Lopez, [facility] [address] [place] [address] Pharmacist Pharmacist 01/16/23 Luis A Escobedo MD [address] [place] [address] 195 [place] [address] Assigned Surgical Provider 02/07/23 04/15/23 Geri Loza PA-C [address] [place] [address] Assigned Surgical Provider 04/16/23 Raina Patterson APRN SERVICE STATION CONSOLE OPERATOR [address] [place] [address] Nurse Practitioner Cardiovascular Disease 05/11/23 documented as of this encounter
--- OUTSIDE RECORDS SUMMARY | 2023-06-30 17:00 | XMS_ITS | Encounter Summary ---
Author Name Unknown Organization [facility] Address [address], [place] [address] Care Team Providers Care Infusion Pharmacist Name Role Phone Kaykay Duarte APRN, CNP Primary Care Provid er Reason for Visit * Reason Comments ERRONEOUS ENTRY Encounter Details Date Type Department Care Team (Late st Contact Info) Description 05/15/2023 Telephone [facility] [address] [place] [address] Kaykay Duarte APRN, CNP [address] [place] [address] ERRONEOUS ENTRY Social History Tobacco [...] on filedocumented in this encounter Care Teams Infusion Pharmacist Relationship Specialty Start Date End Date Kaykay Duarte, STONE LATHE OPERATOR, PARTS SALES COUNTERPERSON [address] [place] [place] [address] PCP - General Nurse Practitioner 10/25/21 documented as of this encounter
--- OUTSIDE RECORDS SUMMARY | 2023-06-30 17:01 | XMS_ITS | Encounter Summary ---
Author Name Unknown Organization [facility] Address [address], [place] [address] Care Team Providers Care Homebound Teacher Name Role Phone Kaykay Duarte APRN, CNP Primary Care Provid er Reason for Visit * Reason Comments Vaginal Odor Encounter Details Date Type Department Care Team (Late st Contact Info) Description 04/14/2018 Nurse Triage [facility] [address] [place], [place] [phone] Kaykay Duarte APRN, LEAH [id number] [place] [address] [phone] Vaginal Odor Social History Tobacco Use Types [...] States she will go to Urgent Care SPECIALIST * Kaykay Duarte APRN, CNP - 04/14/2018 3:22 PM CST Plz call pt. Ok to work her in on at 11:40 or 1pm. Electronically signed by Kaykay Duarte, PRESIDENT EDUCATIONAL INSTITUTION, BALL TRUING MACHINE OPERATOR at 04/14/2018 3:22 PM RISK SPECIALIST * Geri Burnett, RN - 04/14/2018 3:09 PM CST Clinician Action: Appointment Work In Reason Vaginal discharge/odor Clinician Next Step: Route to [facility] to follow up and Patient IS expecting a call back from care team Specific Request(s): 1. Pt asking for a work in [facility] for vaginal discharge (white) and odor [...] last menstrual period? no Protocols used: VAGINAL [id number] SPECIALIST * Karen Saunders - 04/14/2018 3:01 PM CST Pt calling back in. Transferred to triage per request. SPECIALIST * Jacquelyn Jaquez CNA - 04/14/2018 11:05 AM CST Symptoms Describe your symptoms (if pain, include location): Odor, discharge When did they start? 2 weeks Additional comments (related to the above concern): Pt has had past BV infection. Pt unavailable to speak 11:30-1:00pm today 04/14/18 If a prescription is needed, patient would like it filled at the pharmacy listed in [employer] (Verify the pharmacy patient would like to use for this request is highlighted in blue in Pharmacy Selection under [employer]) Is it okay to leave a detailed message on your voicemail? Yes (Advise caller that the PN call back number will end with [phone] or unknown) For urgent symptoms: Please route and transfer to: Triage Pool (high priority) For routine symptoms: Please route to: Triage Pool (only transfer if caller insists) SPECIALIST documented in this encounter Plan of Treatment Not on file documented as of this encounter Visit Diagnoses Not on filedocumented in this encounter Additional Health Concerns Infection Onset Date Last Indicated Resolved Time R/O COVID19 02/08/2021 02/08/2021 02/09/2021 10:0 6 AM RISK SPECIALIST R/O COVID19 02/17/2021 02/17/2021 02/17/2021 11:3 2 PM RISK SPECIALIST documented as of this encounter Care Teams Homebound Teacher Relationship Specialty Start Date End Date Kaykay Duarte, PRESIDENT EDUCATIONAL INSTITUTION, BALL TRUING MACHINE OPERATOR [address] [place] [address] PCP - General Nurse Practitioner 10/25/21 documented as of this encounter
--- OUTSIDE RECORDS SUMMARY | 2023-06-30 17:01 | XMS_ITS | Encounter Summary ---
Author Name Unknown Organization [facility] Address [address] [place] [address] Care Team Providers Care Crisis Nurse Name Role Phone Kaykay Duarte APRN, CNP Primary Care Provid er Reason for Referral * Procedure/Equipment (Routine) - Incomplete Specialty Diagnoses / Procedures Referred By Osmar gallego Referred To Contact Procedures MM Mammogram Screening Bilat W 3D Scot W Kaykay Severino APRN, CNP [address] [place] [address] Referral ID Status Reason Start Date Expiration Date V isits Requested Visits Authorized [id number] Incomplete 04/02/2023 07/01/2024 1 1 AND NUTRITION SERVICES ASSISTANT Reason for Visit * Procedure/Equipment (Routine) - Incomplete Specialty Diagnoses / Procedures Referred By Osmar gallego Referred To Contact Procedures MM Mammogram Screening Bilat W 3D Scot W CAD Kaykay Duarte APRN, CNP [address] [place] [address] Referral ID Status Reason Start Date Expiration Date V isits Requested Visits Authorized [id number] Incomplete 04/02/2023 07/01/2024 1 1 Encounter Details Date Type Department Care Team ([facility] st Contact Info) Description 04/02/2023 8:40 AM FOOD AND NUTRITION SERVICES ASSISTANT Ancillary Procedure [address] [place] [address] Social History Tobacco Use Types Packs/Day Years [...] SCOT W CAD Routine 04/02/2023 8:58 AM FOOD AND NUTRITION SERVICES ASSISTANT documented in this encounter Results * MM Mammogram Screening Bilat W 3D Scot W CAD (04/02/2023 8:58 AM FOOD AND NUTRITION SERVICES ASSISTANT) Anatomical Region Laterality Modality Breast Bilateral Mammography Impressions 04/02/2023 10:15 AM FOOD AND NUTRITION SERVICES ASSISTANT : ACR BI-RADS Category 1: Negative RECOMMENDATION: Follow Up Imaging in 12 months - Bilateral The provided family history indicates that the patient might be at a high lifetime risk of breast cancer. Consider a formal risk assessment if not previously performed. The results and recommendations of this examination will be communicated to the patient. Narrative 04/02/2023 10:15 AM FOOD AND NUTRITION SERVICES ASSISTANT MM MAMMOGRAM SCREENING BILAT W 3D SCOT [...] on filedocumented in this encounter Care Teams Crisis Nurse Relationship Specialty Start Date End Date Kaykay Duarte APRN, CNP [address] [place] [address] PCP - General Nurse Practitioner 10/25/21 documented as of this encounter
--- OUTSIDE RECORDS SUMMARY | 2023-06-30 17:01 | XMS_ITS | Encounter Summary ---
Author Name Unknown Organization [facility] Address [address], [place] [address] Care Team Providers Care Tube Buffer Name Role Phone Kaykay Duarte APRN, LEAH Primary Care Provid er Encounter Details Date Type Department Care Team (Late st Contact Info) Description 04/28/2023 2:10 PM SUPERVISOR REWORK Lab Visit [facility] [address] [place] [address] Hypothyroidism, unspecified type (HRC) Social [...] Comments TSH, SENSITIVE Routine 04/28/2023 2:05 PM SUPERVISOR REWORK Hypothyroidism, unspecified type (HRC) documented in this encounter Results * (ABNORMAL) TSH (04/28/2023 2:05 PM SUPERVISOR REWORK) TSH, Sensitive 0.02(L) 0.30 - 4.50 uIU/mL 04/28/2023 8:01 PM SUPERVISOR REWORK [facility] Blood Venipuncture / Unknown 04/28/2023 2:05 PM SUPERVISOR REWORK 04/28/2023 2:05 PM SUPERVISOR REWORK Mikayla Sweeney MD LAB_1 [facility] [address] documented in this encounter Visit Diagnoses Diagnosis Hypothyroidism, unspecified type (HRC) documented in this encounter Care Teams Tube Buffer Relationship Specialty Start Date End Date Kaykay Duarte, ARMATURE VARNISHER, ELECTRONICS DESIGN ENGINEER [address] [place] [address] PCP - General Nurse Practitioner 10/25/21 documented as of this encounter
--- OUTSIDE RECORDS SUMMARY | 2023-06-30 17:01 | XMS_ITS | Encounter Summary ---
Author Name Unknown Organization [facility] Address [address] [place] [address] Care Team Providers Care Enamel Dipper Name Role Phone Kaykay Duarte APRN, LEAH Primary Care Provid er Reason for Visit * Reason Comments Orders Needed Encounter Details Date Type Department Care Team (Late st Contact Info) Description 04/21/2023 Telephone [facility] [address] [place] [address] Jesus Topete MD [address] [facility] [address] [place] [id number] Orders Needed Social History Tobacco Use Types [...] Dunn RN - 04/24/2023 8:49 AM CST Distribution Analyst sees the pt has made a f/u maryam;t with Dr. Topete on 04/25/2023. Leigh Paul RN - 04/22/2023 11:[address] Topete, the pt may be scheduled with him for this hip injection on either weekend of or May 02. Will wait for the pt to [facility]. Jesus León MD - 04/22/2023 11:03 [...] an ultrasound guided right hip steroid injection. Distribution Analyst l/m on an unidentified vmasking the pt to [facility]. Given the mainline phone number and our hours of operation. It has only been 4 days since receiving a right hip bursa steroid injection. 04/22/2023 Distribution Analyst left a second message asking the pt [...] right hip injection. Patient waseager to proceed. ATION INTERN * Radha Noe - 04/21/2023 9:53 AM [...] can we send you a message in [place]? Yes [Toddler Guide/Compressor House Operator: Relay to patient; We make every effort to get back to you sameday, however it may take 1-2 business days depending on the nature of the communication.] [Toddler Guide/Compressor House Operator: Please inform the patient that a referral/order does not guarantee insurance coverage. Patients should call the member services number on the back of their insurance ID card to understand what coverage for the services they are requesting.] ATION INTERN documented in this encounter Plan of Treatment Not on file documented as of this encounter Visit Diagnoses Not on filedocumented in this encounter Care Teams Enamel Dipper Relationship Specialty Start Date End Date Kaykay Duarte, GINA, CONTINUING EDUCATION INSTRUCTOR [address] [place] [place] [address] PCP - General Nurse Practitioner 10/25/21 documented as of this encounter
--- OUTSIDE RECORDS SUMMARY | 2023-06-30 17:01 | XMS_ITS | Encounter Summary ---
Author Name Unknown Organization [facility] Address [address], [place] [address] Care Team Providers Care Laborer [place] Name Role Phone Kaykay Duarte APRN, LEAH Primary Care Provid er Encounter Details Date Type Department Care Team (Late st Contact Info) Description 04/29/2023 10:00 AM WEB SPECIALIST Lab Visit [facility], [address] [address] Screen for STD (sexually transmitted [...] labs. Message sent to patient via MyChart. SPECIALIST documented in this encounter Plan of Treatment Not on file documented as of this encounter Procedures Procedure Name Priority Date/Time Associated Diagnosis Comments CHLAMYDIA & GC, URINE (14 YEARS AND OLDER) Routine 04/29/2023 10:11 AM WEB SPECIALIST Screen for STD (sexually transmitted disease) documented in this encounter Results * Chlamydia & GC, Urine (14 Years and Older) (04/29/2023 10:11 AM WEB SPECIALIST) Chlamydia Trachomatis STD Not Detected Not Detected 04/30/2023 12:18 AM WEB SPECIALIST [facility] N. gonorrhoeae STD Not Detected Not Detected 04/30/2023 12:18 AM WEB SPECIALIST [facility] Urine STD (Urine for STD) Non-blood Collection / Unknown 04/29/2023 10:11 AM WEB SPECIALIST 04/29/2023 10:12 AM WEB SPECIALIST Narrative [facility] - 04/30/2023 12:18 AM WEB SPECIALIST Test performed by Clerk Operator Mediated Amplification (TMA). Elizabeth Herndon APRN, CNM LAB_1 Performing Organization Address City/State/[facility] Co de Phone Number [facility] [address] documented in this encounter Visit Diagnoses Diagnosis Screen for STD (sexually transmitted disease) Screening examination for venereal disease documented in this encounter Care Teams Laborer [place] Relationship Specialty Start Date End Date Kaykay Duarte APRN, GEOSPATIAL SPECIALIST [address] [place] [address] PCP - General Nurse Practitioner 10/25/21 documented as of this encounter
--- OUTSIDE RECORDS SUMMARY | 2023-06-30 17:01 | XMS_ITS | Encounter Summary ---
Author Name Unknown Organization [facility] Address [address], [place] [address] Care Team Providers Care Global Program Manager Name Role Phone Kaykay Duarte APRN, LEAH Primary Care Provid er Reason for Referral * Procedure/Equipment (Routine) - Incomplete Specialty Diagnoses / Procedures Referred By Contac t Referred To Contact Diagnoses Hypothyroidism, unspecified type (HRC) Procedures US Thyroid Elizabeth Herndon APRN, CNM [address] [place] [phone] Referral ID Status Reason Start Date Expiration Date V isits Requested Visits Authorized [id number] Incomplete 04/29/2023 07/28/2024 1 1 RECORDER * Consult/Transfer Care (Routine) - New Request Specialty Diagnoses / Procedures Referred By Contac t Referred To Contact Diagnoses Low libido Elizabeth Herndon APRN, CNM [address] [address] [place] [address] Referral ID Status Reason Start Date Expiration Date V isits Requested Visits Authorized [id number] New Request 04/29/2023 07/28/2024 1 1 Scheduling Instructions Your clinician has recommended an appointment with [facility]. You may call [phone] to schedule your appointment. If you do [...] time whether she wants to pursue consult. RECORDER Reason for Visit * Reason Comments Annual Exam Encounter Details Date Type Department Care Team (Late st Contact Info) Description 04/29/2023 9:00 AM MILL RECORDER Office Visit [facility] [address] [facility] [address] [place] [address] Elizabeth Herndon APRN, CNM [address] [facility] [address] [place] [address] Annual physical exam (Primary Dx); [...] 121.1 kg (267 lb) 04/29/2023 9:13 AM MILL RECORDER Height - - Body Mass Index 43.09 09/11/2022 4:11 PM CDT documented in this encounter Patient Instructions * Attachments The following attachments cannot be sent through Care Everywhere. * Menopause: General Info (Telugu) documented in this encounter Progress Notes * [...] hot flashes at night. Menstrual concerns: none. Director Payment History: Last pap: 07/2017 Last PAP 11/2020 [...] any concerns. [place] [id number] for additional time for evaluation, management, record review, and coordination of care regarding low libido, thyroid concern RECORDER * Puja Connolly, RN - 04/29/2023 9:00 [...] cancer screening or your test results, call [phone]. Sincerely, Cervical Cancer Screening & Management Team documented in this encounter Plan of Treatment Scheduled Referrals Name Type Priority Associated Diagnoses Orde r Schedule Sexual Medicine and Health Consult Referral Routine Low libido Ordered: 04/29/2023 documented as of this encounter Procedures Procedure Name Priority Date/Time Associated Diagnosis Comments PAP TEST Routine 04/29/2023 9:58 AM MILL RECORDER Screening for cervical cancer HPV WITH 16 18 GENOTYPING, CERVICAL/ENDOCERVIC AL Routine 04/29/2023 9:58 AM MILL RECORDER Screening for cervical cancer documented in this encounter Results * US Thyroid (04/29/2023 2:31 PM MILL RECORDER) Anatomical Region Laterality Modality Neck, Head Ultrasound 04/29/2023 2:11 PM MILL RECORDER Impressions 04/29/2023 4:30 PM MILL RECORDER COMPARISON: None. TECHNIQUE: Ultrasound examination of the [...] with sequela of priorthyroiditis. Elizabeth Herndon APRN, DESOMND RAD US * Chlamydia & GC, Urine (14 Years and Older) (04/29/2023 10:11 AM MILL RECORDER) Chlamydia Trachomatis STD Not Detected Not Detected 04/30/2023 12:18 AM MILL RECORDER [facility] N. gonorrhoeae STD Not Detected Not Detected 04/30/2023 12:18 AM MILL RECORDER [facility] Urine STD (Urine for STD) Non-blood Collection / Unknown 04/29/2023 10:11 AM MILL RECORDER 04/29/2023 10:12 AM MILL RECORDER [facility] - 04/30/2023 12:18 AM MILL RECORDER Test performed by Security Compliance Engineer Mediated Amplification (TMA). Elizabeth Herndon APRN, CNM LAB_1 Performing Organization Address [facility]/ZIP Co de Phone Number [facility] [address] * HPV with 16 18 Genotyping (04/29/2023 9:58 AM MILL RECORDER) HPV High Risk Type 16 PCR Not Detected Not detected 05/21/2023 1:19 PM MILL RECORDER [facility] HPV High Risk Type 18 PCR Not Detected Not Detected 05/21/2023 1:19 PM MILL RECORDER [facility] HPV High Risk Other Than 16/18 Not Detected Not detected 05/21/2023 1:19 PM [facility] Cervical Broom ENTIRE ENDOCERVIX / Unknown 04/29/2023 9:58 AM MILL RECORDER 04/29/2023 4:40 PM MILL RECORDER [facility] - 05/21/2023 1:19 PM MILL RECORDER The Janett HPV test is a qualitative [...] Herndon APRN, CNM LAB_1 Performing Organization Address [facility]/ZIP Co de Phone Number [address] * PAP Test (04/29/2023 9:58 AM MILL RECORDER) Case Report Pap ? Case: [id number] ? Authorizing Provider: ??Elizabeth Herndon, SHIP JOINER, ?Collected: ? 04/29/2023 0958 ? CNM ? Ordering Location: ? [facility] ? Received: ?04/29/2023 1008 ? Services-[facility] ? First Screen: ?Nault, Diana E, CT (ASCP) ? Specimen: ?Pap Test, Routine, Cervix/Endocervix ? 05/21/2023 1:19 PM MILL RECORDER [facility] Pap Specimen Adequacy Satisfactory for evaluation, endocervical/kerr sformation zone component present. 05/21/2023 1:19 PM MILL RECORDER [facility] Pap Interpretation (NILM) Negative for intraepithelial lesion or malignancy. 05/21/2023 1:19 PM MILL RECORDER [facility] Pap Disclaimer The Pap test is a screening test to aid in the detection of cervical and vaginal cancers and their precursor lesions. It is not a diagnostic procedure and should not be used as the sole means of detecting malignancy. Both false-positive and false-negative results may occur. 05/21/2023 1:19 PM MILL RECORDER [facility] Gross Description The specimen is received in SurePath fixative and properly labeled. 1 Pap-stained SurePath slide is prepared. 05/21/2023 1:19 PM MILL RECORDER [facility] Embedded Images 1:19 PM MILL RECORDER [facility] Other Specimen Type ENTIRE ENDOCERVIX / Unknown 04/29/2023 9:58 AM MILL RECORDER 04/29/2023 10:08 AM MILL RECORDER Comment:LMP: No LMP recorded . (Menstrual status: IUD). Elizabeth Herndon APRN, CNM LAB PATHOLOGY Performing Organization Address City/State/[facility] Co de Phone Number [facility] [address] [place] [address], [facility] documented in this encounter Visit Diagnoses Diagnosis Annual physical exam- Primary Routine general medical examination at a health care facility Low libido Screening for cervical cancer Screening for malignant neoplasm of the cervix Hypothyroidism, unspecified type (HRC) Screen for STD (sexually transmitted disease) Screening examination for venereal disease Screening for thyroid disorder Hypothyroidism, unspecified type (HRC) documented in this encounter Care Teams Global Program Manager Relationship Specialty Start Date End Date Kaykay Duarte APRN, CATHETERIZATION LABORATORY TECHNICIAN [address] [place] [address] PCP - General Nurse Practitioner 10/25/21 documented as of this encounter
--- OUTSIDE RECORDS SUMMARY | 2023-06-30 17:01 | XMS_ITS | Encounter Summary ---
Author Name Unknown Organization [facility] Address [address], [place] [address] Care Team Providers Care Boiler/Chiller Technician Name Role Phone Kaykay Duarte APRN, CNP Primary Care Provid er Reason for Visit * Reason Comments Letter Encounter Details Date Type Department Care Team (Late st Contact Info) Description 01/26/2023 Telephone [facility] [address] [place] [address] Kaykay Duarte APRN, CNP [address] [place], [place] [id number] Letter Social History Tobacco Use Types Packs/Day [...] question: would like letter faxed again to [phone]. States clinic has not received letter yet. Is it okay to leave a detailed message on your voicemail? No ENT REGISTRATION MANAGER documented in this encounter Plan of Treatment Not on file documented as of this encounter Visit Diagnoses Not on filedocumented in this encounter Care Teams Boiler/Chiller Technician Relationship Specialty Start Date End Date Kaykay Duarte, COLLAR SETTER OVERLOCK, BOWLING BALL GRADER AND MARKER [address] [place] [address] PCP - General Nurse Practitioner 10/25/21 documented as of this encounter
--- OUTSIDE RECORDS SUMMARY | 2023-06-30 17:01 | XMS_ITS | Encounter Summary ---
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 Patient declined dilation today. Discussed importance of routine dilated eye exams to monitor for potential health concerns of the eye. Advised to return for dilation portion if she can. This will be a continuation of today's exam and will be at no additional charge to the patient. RTC 1 year or sooner as needed. CTOR OF KNOWLEDGE MANAGEMENT documented in this encounter Plan of Treatment Not on file documented as of this encounter Visit Diagnoses Diagnosis Examination of eyes and vision- Primary Presbyopia Regular astigmatism of left eye Regular astigmatism documented in this encounter Care Teams Histopathologist Relationship Specialty Start Date End Date Kaykay Duarte, CORN HUSKER, SUPERVISOR PASTE MIXING [address] [place] [address] PCP - General Nurse Practitioner 10/25/21 documented as of this encounter
--- OUTSIDE RECORDS SUMMARY | 2023-06-30 17:01 | XMS_ITS | Encounter Summary ---
Author Name Unknown Organization [facility] Address [address] [address] Care Team Providers Care Die Maker Apprentice Name Role Phone Kaykay Duarte APRN, CNP Primary Care Provid er Encounter Details Date Type Department Care Team (Late st Contact Info) Description 01/22/2023 [address] [facility] [address] [place] [address] Kaykay Duarte APRN, CNP [address] [place] [address] Social History Tobacco Use Types [...] on filedocumented in this encounter Care Teams Die Maker Apprentice Relationship Specialty Start Date End Date Kaykay Duarte, GINA, UNIVERSAL BRANCH CONSULTANT [address] [place] [address] PCP - General Nurse Practitioner 10/25/21 documented as of this encounter
--- OUTSIDE RECORDS SUMMARY | 2023-06-30 17:01 | XMS_ITS | Encounter Summary ---
Author Name Unknown Organization [facility] Address [address] [address] Care Team Providers Care Associate Chief Nurse Name Role Phone Kaykay Duarte APRN, LEAH Primary Care Provid er Reason for Visit * Reason Comments Questions Encounter Details Date Type Department Care Team (Late st Contact Info) Description 04/28/2023 E-Visit [facility] [address] Endocrinology [address] [facility] [place], [place] [id number] Mikayla Sweeney MD [address] [place] [address] Chief Comp: Questions Social History [...] going to tell me to see my Turbogenerator Operator. Please advise, thank you. EIN * Mikayla Sweeney MD - 04/28/2023 12:49 PM CST She has standing TSH ordered so she can get the blood work done if she would like. Recommend see PCP for exam of the neck ESTRA TEACHER * Amie Mancia RN - 04/28/2023 10:00 [...] Pt had gastric bypass surgery on 03/18/23. ESTRA TEACHER documented in this encounter Plan of Treatment Not on file documented as of this encounter Visit Diagnoses Not on filedocumented in this encounter Care Teams Associate Chief Nurse Relationship Specialty Start Date End Date Kaykay Duarte, EDGER AUTOMATIC, CHILD HEALTH ASSOCIATE [address] [place] [address] PCP - General Nurse Practitioner 10/25/21 documented as of this encounter
--- OUTSIDE RECORDS SUMMARY | 2023-06-30 17:01 | XMS_ITS | Encounter Summary ---
Author Name Unknown Organization [facility] Address [address] [place] [address] Care Team Providers Care Solar Sales Manager Name Role Phone Kaykay Duarte APRN, LEAH Primary Care Provid er Reason for Visit * Reason Comments Follow-up Encounter Details Date Type Department Care Team (Late st Contact Info) Description 04/17/2023 1:10 PM DIRECTOR OF GIFT PLANNING Office Visit [facility] [address] [place] [address] Jesus Topete MD [address] [facility] [place] [id number] Bilateral hip joint arthritis (Primary Dx); Trochanteric [...] Patient Instructions* Katty Cobos, [facility] - 04/17/2023 1:10 PM DIRECTOR OF GIFT PLANNING Thank you for choosing [facility] for your [...] for next 24 hours; ok to shower. CTOR OF GIFT PLANNING documented in this encounter Progress Notes * [...] Reading Date Result Priority Mars Lane MD [phone] 09/11/2022 Narrative & Impression IMPRESSION COMPARISON: 03/04/2022 FINDINGS: Moderate osteoarthritis in the right hip is similar to prior. No acute bone or joint abnormalities. Specimen Collected: 09/11/22 16:33 Last Resulted: 09/11/22 17:06 XR Pelvis W Lt Lateral Hip Details Reading Physician Reading Date Result Priority Santiago Glass MD [phone] 03/04/2022 Routine Narrative & Impression IMPRESSION COMPARISON: [...] note. As a result, wrong word or '[id number]' substitutions may have occurred due to the inherent limitations of voice recognition software. There may be errors in the script that have gone undetected. Please consider this when interpreting information found in this chart. CTOR OF GIFT PLANNING documented in this encounter Plan of Treatment Not on file documented as of this encounter Visit Diagnoses Diagnosis Bilateral hip joint arthritis- Primary Trochanteric bursitis of left hip Enthesopathy of hip region Trochanteric bursitis, right hip documented in this encounter Care Teams Solar Sales Manager Relationship Specialty Start Date End Date Kaykay Duarte, VIDEO TAPE TRANSFERRER, STRAINER MILL OPERATOR [address] [place] [address] PCP - General Nurse Practitioner 10/25/21 documented as of this encounter
--- OUTSIDE RECORDS SUMMARY | 2023-06-30 17:03 | XMS_ITS | Encounter Summary ---
Author Name Unknown Organization [facility] Address [address] [place] [address] Care Team Providers Care Recycling Technician Name Role Phone Edda Agudelo PA-C Primary Care Provider + [phone] Magno Wood MD Unavailable [facility] [place] Primary Care Provider Unavailable Parth Ellis MD Unavailable [phone] Tati Ayala MD Unavailable [phone] Khris Butt MD Unavailable [phone] MorelosRoderick nunes MD Unavailable [phone] Roderick Morelos MD Unavailable [phone] Magno Wood MD Unavailable [phone] Sophie Ocasio Unavailable [phone] Parth Ellis MD Unavailable [phone] MorelosRoderick nunes MD Unavailable [phone] Henny Rosales APRN STITCH BONDING MACHINE TENDER HELPER Unavailable [phone] [facility] Elvia Nugent [place] Primary Care Pr ovider Sharee Negron RD Unavailable Kaykay Duarte PAINT LINE OPERATOR Primary Care Provider [phone] Christiane Rodríguez MD Unavailable [phone] Luis A Escobedo MD Unavailable [phone] Chely Fernandez PA-C Unavailable [phone] CadenaJing jacob Susie [facility] Unavailable + [phone] Radha Lopez [facility] Unavailable [phone] Luis A Escobedo MD Unavailable [phone] Geri Loza PA-C Unavailable [phone] Yesenia Raina [facility] STITCH BONDING MACHINE TENDER HELPER Unavailable [phone] Encounter Details Date Type Department Care Team (Late st Contact Info) Description 02/10/2008 Office Visit-[facility] Heart [facility] [address] [facility] [address] [place] [address] Reji Li MD [address] [facility] [address] [place] [address] Social History Tobacco Use Types Packs/Day Years Used Date Smoking Tobacco: Never Assessed Sex and Gender Information Value Date Recorded Sex Assigned at Not on file Gender Identity Not on file Sexual Orientation Not on file documented as of this encounter Progress Notes * Reji iL MD - 02/15/2008 2:38 PM CST Progress Note Created by: Reji Li M.D. DATE: 02/10/2008 JIMBO OWENS DATE OF : 1970 AGE: [age] years old Referring Physician: LUIS A WORRELL Referring Clinic: [facility] CURRENT DIAGNOSES 1. 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 COVID-19 03/19/2020 03/19/2020 04/09/2020 11:3 9 PM [employer] RETAILER SALES CONSULTANT Rule Out COVID-19 06/19/2021 06/19/2021 06/19/2021 1:37 AM CDT Rule Out COVID-19 10/29/2021 10/29/2021 10/29/2021 1:07 AM CDT documented as of this encounter Care Teams Recycling Technician Relationship Specialty Start Date End Date Edda Agudelo PA-C [facility] [address] [address] PCP - General 05/04/12 10/11/19 Ernestina Martini [address] [facility] [address] [place] [address] PCP - General Family Practice 10/12/19 08/18/22 [facility] Elvia Nugent [place] [address] [place] [address] PCP - General 08/19/22 10/14/22 Kaykay Duarte [place] [id number] [place] [address] PCP - General 10/15/22 Magno Wood MD [address] [facility] [address] [place] [address] Otolaryngology 05/29/15 08/02/17 Parth Ellis MD [address] [place] [address] Assigned Heart and Vascular Provider 01/13/20 12/13/21 Tati Ayala MD [address] [place], [place] [address] Assigned Endocrinology Provider 01/13/20 12/29/20 Khris Butt MD [address] [address] [place] [address] Assigned Heart and Vascular Provider 12/14/21 02/14/22 Roderick Morelos MD [address] [place] [address] Cardiovascular Disease 02/03/22 Roderick Morelos MD [address] [place] [address] Assigned Heart and Vascular Provider 02/15/22 07/18/22 Magno Wood MD [address] [facility] [address] [place] [address] Otolaryngology 02/21/22 Sophie Ocasio AuD [address] [facility] [place] [address] Steward/[employer] Audiology 02/21/22 Parth Ellis MD [address] [place] [address] Assigned Heart and Vascular Provider 07/19/22 07/25/22 Roderick Morelos MD [address] [place] [address] Assigned Heart and Vascular Provider 07/26/22 08/08/22 Henny [place], FASHION STYLIST STITCH BONDING MACHINE TENDER HELPER [address] [place] [address] Assigned Heart and Vascular Provider 08/09/[address] [place], [place] [address] Registered Dietitian Dietitian, Registered 09/02/22 Christiane Rodríguez MD [address] [facility] [address] [place] [address] Otolaryngology 11/12/22 Luis A Escobedo MD [address] [facility] [address] [place] [address] Assigned Surgical Provider 11/01/22 11/28/22 Chely Fernandez PA-C [address] [place] [address] Assigned Surgical Provider 11/29/22 02/06/23 Jing Cadena, FASHION STYLIST CHIEF TECHNOLOGIST [address] [facility] [address] [place] [address] Clinical Nurse Specialist Anesthesiology 01/15/23 Radha Lopez, [facility] [address] [place] [phone] Pharmacist Pharmacist 01/16/23 Luis A Escobedo MD [address] [place] [address] [address] [place], [place] [address] Assigned Surgical Provider 02/07/23 04/15/23 Geri Loza PA-C [address] [place] [address] [id number] Assigned Surgical Provider 04/16/23 Raina Patterson APRN STITCH BONDING MACHINE TENDER HELPER [address] [place] [address] Nurse Practitioner Cardiovascular Disease 05/11/23 documented as of this encounter
== END 2023-06-30 17:04 | disposition home or self-care (01) ==
PROVIDERS: Emergency Provider Family Medicine; PCP Registered Nurse General Practice
DX: Z53.21 Procedure and treatment not carried out due to patient leaving prior to being seen by health care provider (principal)

== ENCOUNTER 2023-12-23 13:10 | Outpatient (CLI) | payer BC, SELFPAY | END 2023-12-23 13:11 | disposition home or self-care (01) | PROVIDERS: Visit Provider Physician Assistant Medical | DX: Z01.818 Encounter for other preprocedural examination (principal); E78.5 Hyperlipidemia, unspecified; E03.9 Hypothyroidism, unspecified; M16.11 Unilateral primary osteoarthritis, right hip | CPT/HCPCS: 80061; 84439; 84443; 84450; 84460 ==

== ENCOUNTER 2024-01-06 09:34 | Day surgery (SDC) | payer BC, SELFPAY ==
[2024-01-06] VITALS (28 sets, daily range): BP systolic 96–142; BP diastolic 58–91; PULSE 50–79; RESP 10–21; TEMP 35.6–36.6; O2SAT 92–100; BMI 40.0
--- OUTSIDE RECORDS SUMMARY | 2024-01-06 09:38 | XMS_ITS | Clinical Summary ---
Author Organization [email or web address] [facility] Address [place], [place] [address] Care Team Providers Care Medical Office Secretary Name Role Phone Brandan Burleson MD Unavailable [phone] Pcp, No Primary Care Provider Unavailabl e [...] solution (FLONASE)Indications :Purulent postnasal drainage Inhale 1 [place] into both nostrils 2 times daily. 1 [...] two times daily. 10 Tablet 06/21/2022 Active oxyCODONE-acetaminop hen (PERCOCET) 5-325 mg per tabletIndications:Pe lvic joint pain, right,Acute pain of right knee,Acute right ankle pain Take 1 Tablet by mouth every 6 hours if needed for Pain. Max acetaminophen dose: 4000mg in 24 hrs. 8 Tablet 11/15/2023 Active meloxicam 15 mg tabletIndications:Ri ght hip pain Take 1 Tablet (15 mg) by mouth once daily. 30 Tablet 11/27/2023 Active Active Problems Problem Noted Date Diagnosed Date Moderate persistent asthma with acute exacerbati on 06/12/2016 Panic attacks 10/16/2014 Thyroid activity decreased 10/02/2014 Restless leg syndrome, familial 05/29/2014 Other and unspecified hyperlipidemia 08/14/2009 GERD (gastroesophageal reflux disease) 0 Irregular heart beat 08/14/2009 Unspecified examination 08/14/2009 Overview (08/14/2009): Last pap 09/2007 Last Mammo 09/2008 Chronic low back pain Encounters Date Type Department Care Team Description 11/26/2023 Telephone [facility] Orthopedics - Joint Replacement Center [facility] [address] [place] [address] Jose Enrique Ricardo PA Concerns (ibuprofen and tylenol not effective for ) 11/25/2023 Telephone [facility] Orthopedics Joint Replacement [facility] [address] [place] [address] Dionisio Agudelo MD Surgery Scheduled 11/20/2023 9:50 AM CDT Office Visit [facility] Orthopedics Joint Replacement [facility] [address] [place] [address] Dionisio Agudelo MD Hip Pain/problem (Right Hip Pain) 11/20/2023 Transcribe Orders [facility] Joint Replacement [facility] [address] [place] [address] Dionisio Agudelo MD 11/20/2023 Travel 11/15/2023 3:42 PM CDT - 11/15/2023 6:12 PM CDT Emergency [address] [address] Monique Ott PA Pelvic joint pain, right (Primary Dx); Acute pain of right knee; Acute right ankle pain Discharge Disposition: Home Self Care 11/15/2023 Travel from Last 3 Months Immunizations Name Administration [...] Sign Reading Time Taken Comments Blood Pressure 146/68 11/15/2023 3:38 PM CDT Pulse 70 11/15/2023 3:38 PM CDT Temperature 36.1 ??C (97 ??F) 11/15/2023 3:38 PM CDT Respiratory Rate 18 11/15/2023 3:38 PM CDT Oxygen Saturation 98% 11/15/2023 3:38 PM CDT Inhaled Oxygen Concentration - - Weight 110.2 kg (243 lb) 11/15/2023 3:38 PM CDT Height 165.1 cm (5' 5) 11/15/2023 3:38 PM CDT Body Mass Index 40.44 11/15/2023 3:38 PM CDT Plan of Treatment Health Maintenance [...] age 21-65 05/21/2018 6 ([facility]), 05/22/2011 Zoster (shingles) series for age 50+ (1 of 2) 2018 Lipids for age 45-75 02/10/2021 02/11/2016, 06/29/19 15 COVID-19 vaccine series ( season) 2023 11/28/2020, 06/19/2020 Influenza for age 50-64 11/22/2023 12/22/19 16, 01/01/2015, 01/16/2014, Additional history exists Pneumococcal series for age 6-64 Aged Out No longer eligible based on patient's age to complete this topic Medical Devices Implanted Type Area Data Abstractor Device Identifier Shelf Expiration Date Model / Serial / Lot Prosth Shiva [id number] - [id number] Implanted:Qty: 1 on 05/20/2005 at [facility] Ent Implants Right: Ear [employer] 61# / / Procedures Procedure Name Priority Date/Time Associated Diagnosis Comments XR ANKLE 3 VIEWS RIGHT STAT 11/15/2023 5:15 PM CDT XR KNEE 3 VIEWS RIGHT STAT 11/15/2023 5:13 PM CDT XR HIP 2 OR 3 VIEWS W PELVIS RIGHT STAT 11/15/2023 5:12 PM CDT LIPID PANEL W REFLEX MEASURED LDL Routine 02/11/2016 2:52 PM [employer] Hyperlipidemia, unspecified hyperlipidemia type XR MAMMO RAVI BILAT SCREEN Routine 01/30/2016 9:52 AM [employer] Visit for screening mammogram from Last 3 Months or Most Recently Relevant to Health Maintenance Results * XR ANKLE 3 VIEWS RIGHT (11/15/2023 5:15 PM CDT) Anatomical Region Laterality Modality ANKLES, ANKLE R Computed Radiogr aphy 11/15/2023 5:15 PM CDT Impressions 11/15/2023 5:24 PM CDT Negative for acute right ankle fracture or dislocation. Mild tibiotalar degenerative arthrosis. Small calcaneal spurs. Narrative 11/15/2023 5:24 PM CDT For Patients: As a result of the Century Cures Act, medical imaging exams and procedure reports are released immediately into your electronic medical record. You may view this report before your referring provider. If you have questions, please contact your health care provider. EXAM: XR ANKLE 3 VIEWS RIGHT LOCATION: [facility] DATE: 11/15/2023 INDICATION: Pain Trauma COMPARISON: None. Procedure Note Shaheen Pollock MD - 11/15/2023 For Patients: As a result of the Cures Act, medical imagingexams and procedure reports are released immediately into your electronicmedical record. You may view this report before your referring provider.If you have questions, please contact your health care provider. EXAM: XR ANKLE 3 VIEWS RIGHT LOCATION: [facility] DATE: 11/15/2023 INDICATION: Pain Trauma COMPARISON: None. IMPRESSION: Negative for acute right ankle fracture or dislocation. Mild tibiotalardegenerative arthrosis. Small calcaneal spurs. Monique [facility] * XR KNEE 3 VIEWS RIGHT (11/15/2023 5:13 PM CDT) Anatomical Region Laterality Modality KNEES, KNEE R Computed Radiogr aphy 11/15/2023 5:13 PM CDT Impressions 11/15/2023 5:17 PM CDT Right hip: No fracture or dislocation. Severe right hip osteoarthritis with areas of near complete joint space loss along the superior aspects of the joint. Moderate left hip degenerative change. Intrauterine device projects over the pelvis. Right knee: No fracture or malalignment. Joint spaces are preserved. No effusion. Narrative 11/15/2023 5:17 PM CDT For Patients: As a result of the Cures Act, medical imaging exams and procedure reports are released immediately into your electronic medical record. You may view this report before your referring provider. If you have questions, please contact your health care provider. EXAM: XR HIP 2 OR 3 VIEWS W PELVIS RIGHT, XR KNEE 3 VIEWS RIGHT LOCATION: [facility] DATE: 11/15/2023 INDICATION: free text)->pain COMPARISON: 09/11/2022 Procedure Note Butch Batista MD - 11/15/2023 For Patients: As a result of the Cures Act, medical imagingexams and procedure reports are released immediately into your electronicmedical record. You may view this report before your referring provider.If you have questions, please contact your health care provider. EXAM: XR HIP 2 OR 3 VIEWS W PELVIS RIGHT, XR KNEE 3 VIEWS RIGHT LOCATION: [facility] DATE: 11/15/2023 INDICATION: free text)->pain COMPARISON: 09/11/2022 IMPRESSION: Right hip: No fracture or dislocation. Severe right hip osteoarthritiswith areas of near complete joint space loss along the superior aspects ofthe joint. Moderate left hip degenerative change. Intrauterine deviceprojects over the pelvis. Right knee: No fracture or malalignment. Joint spaces are preserved. Noeffusion. Monique [facility] * XR HIP 2 OR 3 VIEWS W PELVIS RIGHT (11/15/2023 5:12 PM CDT) Anatomical Region Laterality Modality HIPS, HIPR, Pelvis Computed Radi ography 11/15/2023 5:12 PM CDT Impressions 11/15/2023 5:17 PM CDT Right hip: No fracture or dislocation. Severe right hip osteoarthritis with areas of near complete joint space loss along the superior aspects of the joint. Moderate left hip degenerative change. Intrauterine device projects over the pelvis. Right knee: No fracture or malalignment. Joint spaces are preserved. No effusion. Narrative 11/15/2023 5:17 PM CDT For Patients: As a result of the Century Cures Act, medical imaging exams and procedure reports are released immediately into your electronic medical record. You may view this report before your referring provider. If you have questions, please contact your health care provider. EXAM: XR HIP 2 OR 3 VIEWS W PELVIS RIGHT, XR KNEE 3 VIEWS RIGHT LOCATION: [facility] DATE: 11/15/2023 INDICATION: free text)->pain COMPARISON: 09/11/2022 Procedure Note Butch Batista MD - 11/15/2023 For Patients: As a result of the Cures Act, medical imagingexams and procedure reports are released immediately into your electronicmedical record. You may view this report before your referring provider.If you have questions, please contact your health care provider. EXAM: XR HIP 2 OR 3 VIEWS W PELVIS RIGHT, XR KNEE 3 VIEWS RIGHT LOCATION: [facility] DATE: 11/15/2023 INDICATION: free text)->pain COMPARISON: 09/11/2022 IMPRESSION: Right hip: No fracture or dislocation. Severe right hip osteoarthritiswith areas of near complete joint space loss along the superior aspects ofthe joint. Moderate left hip degenerative change. Intrauterine deviceprojects over the pelvis. Right knee: No fracture or malalignment. Joint spaces are preserved. Noeffusion. Monique [facility] * (ABNORMAL) LIPID PANEL W REFLEX MEASURED LDL (02/11/2016 2:52 PM [employer]) CHOLESTEROL,TOTAL 271(H) 100 - 199 mg/dL 02/11/2016 8:04 PM [employer] [facility] TRIGLYCERIDES 178(H) <150 mg/dL 02/11/2016 8:04 PM [employer] INTELLIGENCE/ELECTRONIC WARFARE [facility] HDL CHOLESTEROL 49 >40 mg/dL 6 8:04 PM [employer]TELL[employer]AR[employer] [facility] NON-HDL CHOLESTEROL 222(H) <145 mg/dl 02/11/2016 8:04 PM [employer]TELL[employer] [facility] CHOL/HDL RATIO 5.53(H) <4.50 02/11/2016 8:04 PM [employer] [facility] LDL CHOLESTEROL 186(H) <=130 mg/dL 02/11/2016 8:04 PM [employer]TELL[employer]RON[employer] [facility] PATIENT STATUS NON-FASTI NG 02/11/2016 8:04 PM [employer] [facility] Blood BLOOD SPECIMEN / Unknown Venipuncture / Unknown 02/11/2016 2:52 PM [employer] 02/11/2016 2:52 PM [employer] [facility] [address] [place] [address], [place] * XR MAMMO RAVI SCREEN BILAT (01/30/2016 9:52 AM [employer]) Anatomical Region Laterality Modality BREASTS, Breast Left, Breast Right Bilateral Mammography Impressions 01/30/2016 11:17 AM [employer] ??There is no radiographic evidence for malignancy. ??Recommend annual mammograms. A lay language report of this examination will be provided to the patient. MAMMOGRAM ASSESSMENT: ??ACR 2 Benign Narrative 01/30/2016 11:17 AM [employer] XR MAMMO RAVI SCREEN JANINE [[id number]] CLINICAL HISTORY: ??This is an asymptomatic 45 y.o. patient. INDICATION FOR EXAM: Mammogram Screening. TECHNIQUE: CC & MLO views were obtained. ??This digital study was evaluated with the assistance of Computer-Aided Detection. Breast Tomosynthesis was used in interpretation. COMPARISON FILMS: Yes 02/10/15 [facility] 01/18/14 [facility] FINDINGS: ??Mammographically, the breast tissue has scattered fibroglandular densities. ??No suspicious masses or microcalcifications. ?? Benign appearing calcifications within both breasts. Brandan Burleson MD MAMMO from Last 3 Months or Most Recently Relevant to Health Maintenance Advance Directives * Full Code (Latest Code Status on File) Date Activated Date Inactivated Comments 05/20/2005 7:01 AM 05/20/2005 4:28 PM Care Teams Medical Office Secretary Relationship Specialty Start Date End Date Pcp, No . PCP - General 03/24/20 Brandan Burleson MD Gynecology Obstetrics and Gynecology 09/19/15
--- OUTSIDE RECORDS SUMMARY | 2024-01-06 09:38 | XMS_ITS | Clinical Summary ---
Author Organization [facility] Address [address] [place] [address] Care Team Providers Care Director Of Transportation Name Role Phone Roderick Morelos MD Unavailable [phone] Magno Wood MD Unavailable [phone] Sophie Ocasio AuD Unavailable [phone] H[address] Rosales [employer] P[employer] CATTLE SHIPPER Unavailable Sharee lOiva RD Unavailable [phone] Kaykay Duarte NP Primary Care Provider [phone] Christiane Rodríguez MD Unavailable Jing Cadena [employer] INTERVIEWING CLERK Unavailable Radha Lopez [facility] Unavailable [phone] Geri LozaC Unavailable [phone] Raina Patterson APRN [employer] Unavailable [phone] Allergies Active Allergy Reactions Criticality Noted Date Comments Ibuprofen Other (See Comments) Low 10/19/2020 Gastric sleeve Medications Medication Sig Dispensed Refills Start Date End Date Status levothyroxine (SYNTHROID/LEVOTHR OID) 200 MCG tablet Take 225 mcg by mouth at bedtime 90 tablet Active gabapentin (NEURONTIN) 600 MG tablet Take 600 mg by mouth At Bedtime Active rOPINIRole (REQUIP) 2 MG tablet Take 2 mg by mouth 2 times daily Take in afternoon and at bedtime Active albuterol (PROVENTIL) (2.5 MG/3ML) 0.083% neb [...] breath / dyspnea or wheezing 18 g 10/29/2021 Active Additional Information Patient taking differently:2 puff InhalationPRN, shortness of breath, wheezing, Reported on 11/19/2022 blood glucose (ACCU-CHEK GUIDE) test strip USE 1 STRIP TO TEST THREE TIMES A DAY. 04/11/2022 Active levonorgestrel (MIRENA) 52 MG (20 mcg/day) IUD 1 each by Intrauterine route Active omeprazole (PRILOSEC) [address] capsuleIndications :Gastroesophageal reflux disease with esophagitis, unspecified whether hemorrhage Take 1 capsule (40 mg) by mouth 2 times daily 180 capsule 3 01/26/2023 Active cyanocobalamin (VITAMIN B-12) [address] 1 tablet under the tongue every morning Active acetaminophen (TYLENOL) 325 MG tabletIndications: Morbid obesity (H),Acute post-operative pain Take 2 tablets (650 mg) by mouth every 4 hours as needed for other (For optimal non-opioid multimodal pain management to improve pain control and physical function.) 100 tablet 03/19/2023 Active blood glucose monitoring (NO BRAND SPECIFIED) meter device kitIndications:S/P laparoscopic sleeve gastrectomy,Class 3 severe obesity with serious comorbidity and body mass index (BMI) of 45.0 to 49.9 in adult, unspecified obesity type (H),Type 2 diabetes mellitus without complication, without long-term current use of insulin (H) Use to test blood sugar 1 times daily or as directed. 1 kit 03/24/2023 Active blood glucose (NO BRAND SPECIFIED) [...] & Plan: S/p gastric sleeve 08/09/2020 at [facility]. No post op complications. Weight prior to [...] 35 RDI 36 Lowest O2 Sat: 87% [place] Hypothyroidism, unspecified type 06/28/2019 Cervical high risk HPV (human papillomavirus) te st positive 08/05/2017 Overview: Overview: [facility] Review: History: 2018: NILM HPV+ (18), colp [...] loss. Gastric sleeve was completed 08/09/[address] [facility] [address] Barillas. Starting weight 338lb, BMI 56.25. She felt that instantly did not see expected weight loss results. Per chart review had lost 8lbs by 3 months post op and has followed up with [facility] since. She has lost 38lbs since surgery, [...] Encounters Date Type Department Care Team Description 10/18/2023 MyC Medical Advice [facility] Heart [address] [address] Radha Lopez [facility] from Last 3 Months Immunizations Name Administration [...] Comments Blood Pressure 124/78 03/24/2023 10:20 AM WAITER/WAITRESS HEAD Pulse 70 03/24/2023 10:20 AM WAITER/WAITRESS HEAD Temperature 36.8 ??C (98.2 ??F) 03/24/2023 10:[address] Respiratory Rate 16 03/24/2023 10:20 AM WAITER/WAITRESS HEAD Oxygen Saturation 99% 03/24/2023 10:20 AM WAITER/WAITRESS HEAD Inhaled Oxygen Concentration - - Weight 120.7 kg (266 lb) 04/23/2023 11:55 AM WAITER/WAITRESS HEAD Height 167.6 cm (5' 6) 04/23/2023 11:55 AM WAITER/WAITRESS HEAD Body Mass Index 42.93 04/23/2023 11:55 AM WAITER/WAITRESS HEAD Plan of Treatment Health Maintenance Due Date [...] (2 of 2 - PCV) 04/14/2018 04/14/2017 YEARLY PREVENTIVE VISIT 12/17/2021 12/17/2020 TSH W/FREE T4 REFLEX 02/28/2022 02/28/2021, 03/21/2020, 05/10/2019, Additional history exists A1C 01/23/2023 10/23/2022, 10/30/2021 BMP 10/24/2023 10/23/2022, 03/23, 01/12/2022, Additional history exists LIPID 10/24/2023 10/23/2022, 12/15/2005 COVID-19 Vaccine ( season) 2023 11/28/2020, 06/19/2020 INFLUENZA VACCINE (#1) 2023 , 03/31/2019, 04/14/2017, Additional history exists PAP 12/18/2023 12/17/2020, 12/17/2020 ASTHMA ACTION PLAN 01/28/2024 01/27/2023 MAMMO SCREENING 04/02/2025 04/02/2023, 03/23, 02/04/2022, Additional history exists DTAP/TDAP/TD IMMUNIZATION (2 - Td or Tdap) 06/27/2031 06/26/2021 RSV VACCINE (1 - 1-dose 75+ series) 10/02/2043 ZOSTER IMMUNIZATION Completed 09/13/2021, PHQ-2 (once per [...] [facility] IS SCHEDULED Care Plan [facility] SURGERY IS SCHEDULED No Luis A Escobedo MD Procedures Procedure Name Priority Date/Time Associated Diagnosis Comments LIPID PROFILE Routine 10/23/2022 11:20 AM CDT BASIC METABOLIC PANEL Routine 10/23/2022 11:20 AM CDT HEMOGLOBIN A1C Routine 10/23/2022 11:20 AM CDT Class 3 severe obesity with serious comorbidity and body mass index (BMI) of 45.0 to 49.9 in adult, unspecified obesity type (H) TSH WITH FREE T4 REFLEX Add-On 02/28/2021 1:00 AM WAITER/WAITRESS HEAD 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 from Last 3 Months or Most Recently Relevant to Health Maintenance Results * (ABNORMAL) Lipid Profile (10/23/2022 11:20 AM [...] Sweeney MD LAB - BLOOD ORDERABL ES BREEZE PFT NON-INTERFACED (ONBASE SCANS) * (ABNORMAL) Hemoglobin A1c (10/23/2022 11:20 AM CDT) Hemoglobin A1C (External) 7.0(H) <=5.6 % NON-INTERFACED (ONBASE SCANS) Blood BLOOD SPECIMEN / Unknown 10/23/2022 11:20 AM CDT Narrative BREEZE PFT - 10/24/2022 8:49 AM CDT Verified by Quinn Weztel on 10/24/2022. Geri Loza PA-C LAB - [...] MD LAB - BLOOD ORDERABL ES LUIS PFT NON-INTERFACED (ONBASE SCANS) * TSH with free T4 reflex (02/28/2021 1:00 AM WAITER/WAITRESS HEAD) TSH 0.86 0.40 - 4.00 mU/L 03/01/2021 4:13 PM WAITER/WAITRESS HEAD LABORATORY Blood STRUCTURE OF RIGHT UPPER LIMB / Unknown Venipuncture / Unknown 02/28/2021 1:00 AM WAITER/WAITRESS HEAD 02/28/2021 1:08 AM WAITER/WAITRESS HEAD Parth Ellis MD LAB - BLOOD ORD ERABLES LABORATORY [facility] Lab [address] (1st floor, no room number) [place] [address], [facility] [phone] from Last 3 Months or Most Recently Relevant to Health Maintenance Additional Health Concerns Active Problems Noted Date Diagnosed Date [facility] SURGERY IS SCHEDULED 10/15/2022 Advance Directives For more information, please contact: [phone] * Full Code (Latest Code Status on File) Date Activated Date Inactivated Comments 03/18/2023 5:53 PM 03/19/2023 4:25 PM All basic and advanced life-sustaining interventions are performed as appropriate Question Answer Comments Code status determined by: Unable to dis cuss and no AD/POLST on file; continue PREVIOUSLY ORDERED code status * Full Code Date Activated Date Inactivated Comments 10/30/2021 2:35 AM 10/31/2021 11:55 AM All basic a nd advanced life-sustaining interventions are performed as appropriate Question Answer Comments Code status determined by: Discussion with patie nt/ legal decision maker * Full Code Date Activated Date Inactivated Comments 06/19/2021 4:12 AM 06/19/2021 5:17 PM All basic an d advanced life-sustaining interventions are performed as appropriate Question Answer Comments Code status determined by: Discussion with patie nt/ legal decision maker * Full Code Date Activated Date Inactivated Comments 03/19/2020 8:54 PM 03/20/2020 6:32 PM All basic and advanced life-sustaining interventions are performed as appropriate Question Answer Comments Code status determined by: Discussion with patie nt/ legal decision maker * Full Code Date Activated Date Inactivated Comments 10/22/2014 12:01 PM 05/01/2018 3:45 AM Care Teams Director Of Transportation Relationship Specialty Start [place] [address] [place] [address] PCP - General 10/15/22 Roderick Morelos MD [address] [place], [place] [id number] Cardiovascular Disease 02/03/22 Magno Wood MD [address] [facility] [address] [place], [place] [address] Otolaryngology 02/21/22 Sophie Ocasio AuD [address] [place] [address] Dietitian Helper Audiology 02/21/22 Henny Rosales APRN [employer] [address] [place] [address] Assigned Heart and Vascular Provider 08/09/[address] [place], [place] [address] Registered Dietitian Dietitian, Registered 09/02/22 Christiane Rodríguez MD [address] [facility] [address] [place], [place] [address] Otolaryngology 11/12/22 Jing Cadena [employer] P[employer] INTERVIEWING CLERK [address] [facility] [address] [place], [place] [phone] Clinical Nurse Specialist Anesthesiology 01/15/23 Radha Lopez, [facility] [address] [place], [place] [id number] Pharmacist Pharmacist 01/16/23 Geri Loza PA-C [address] [place], [place] [address] Assigned Surgical Provider 04/16/23 Raina Patterson APRN [employer] [address] [place] [address] [place] [address] Nurse Practitioner Cardiovascular Disease 05/11/23
--- OUTSIDE RECORDS SUMMARY | 2024-01-06 09:38 | XMS_ITS | Referral Summary ---
Author Organization [facility] Address [address] [place] [address] 58[address] Care Team Providers Care Brazer Resistance Name Role Phone Roderick Morelos MD Unavailable [phone] Magno Wood MD Unavailable [phone] Sophie Ocasio AuD Unavailable Henny Rosales SECURITY AND COMPLIANCE PROJECT MANAGER DESIGN CONSULTANT Unavailable Sharee Oliva RD Unavailable [phone] Kaykay Duarte NP Primary Care Provider Christiane Rodríguez MD Unavailable [phone] Jing Cadena SECURITY AND COMPLIANCE PROJECT MANAGER HIGH SCHOOL MATH TEACHER Unavailable Radha Lopez [facility] Unavailable [phone] Geri Loza PA-C Unavailable Raina Patterson APRN DESIGN CONSULTANT Unavailable [phone] Encounters Date Type Department Care Team Description 10/18/2023 [facility] Heart [address] [address] Radha Lopez, [facility] from Last 3 Months Allergies Active Allergy [...] & Plan: S/p gastric sleeve 08/09/[address] [facility]. No post op complications. Weight prior [...] papillomavirus) te st positive 08/05/2017 Overview: Overview: [facility] Review: History: 2018: NILM HPV+ (18), [...] loss. Gastric sleeve was completed 08/09/[address] [facility] with Dr. Barillas. Starting weight 338lb, BMI 56.25. She felt that instantly did not see expected weight loss results. Per chart review had lost 8lbs by 3 months post op and has followed up with [facility] since. She has lost 38lbs since surgery, [...] Comments Blood Pressure 124/78 03/24/2023 10:20 AM MORTGAGE LENDER Pulse 70 03/24/2023 10:20 AM MORTGAGE LENDER Temperature 36.8 ??C (98.2 ??F) 03/24/2023 10:[address] Respiratory Rate 16 03/24/2023 10:20 AM MORTGAGE LENDER Oxygen Saturation 99% 03/24/2023 10:20 AM MORTGAGE LENDER Inhaled Oxygen Concentration - - Weight 120.7 kg (266 lb) 04/23/2023 11:55 AM MORTGAGE LENDER Height 167.6 cm (5' 6) 04/23/2023 11:55 AM MORTGAGE LENDER Body Mass Index 42.93 04/23/2023 11:55 AM MORTGAGE LENDER Plan of Treatment Not on file Goals [...] FREE T4 REFLEX Add-On 02/28/2021 1:00 AM MORTGAGE LENDER 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 [...] with free T4 reflex (02/28/2021 1:00 AM MORTGAGE LENDER) TSH 0.86 0.40 - 4.00 mU/L 03/01/2021 4:13 PM MORTGAGE LENDER LABORATORY Blood STRUCTURE OF RIGHT UPPER LIMB / Unknown Venipuncture / Unknown 02/28/2021 1:00 AM MORTGAGE LENDER 02/28/2021 1:08 AM MORTGAGE LENDER Parth Ellis MD LAB - BLOOD ORD ERABLES LABORATORY [facility] [address] [facility] Lab (1st floor, no room number) [place] [address], [facility] [phone] from Last 3 Months or Most Recently Relevant to Health Maintenance Additional Health Concerns Active Problems Noted Date Diagnosed Date BRIAN PATHWAY SURGERY IS SCHEDULED 10/15/2022 Advance Directives For more information, please contact: [phone] * Full Code (Latest Code Status on [...] 12:01 PM 05/01/2018 3:45 AM Care Teams Brazer Resistance Relationship Specialty Start Date End Date Kaykay Duarte, EXHIBITION DESIGNER [address] [place] [address] PCP - General 10/15/22 Roderick Morelos MD [address] [place] [address] Cardiovascular Disease 02/03/22 Magno Wood MD [address] [place] [address] 396 [place], [place] 891075 Otolaryngology 02/21/22 Sophie Ocasio AuD [address] [place] [address] 880045 Reducing Salon Attendant Audiology 02/21/22 Henny Rosales APRN DESIGN CONSULTANT [address] [place] [id number] Assigned Heart and Vascular Provider 08/09/[address]09 [place], [place] 168555 Registered Dietitian Dietitian, Registered 09/02/22 Christiane Rodríguez MD [address] [facility] 396 [place], [place] 609355 Otolaryngology 11/12/22 Jing Cadena, SECURITY AND COMPLIANCE PROJECT MANAGER [employer] MATH TEACHER [address] [facility] 450 [place], [place] 875065 Clinical Nurse Specialist Anesthesiology 01/15/23 Radha Lopez, [facility] [address] [place] [address] 132265 Pharmacist Pharmacist 01/16/23 Geri Loza PA-C [address] [place] [address] 250195 Assigned Surgical Provider 04/16/23 Raina Patterson APRN DESIGN CONSULTANT [address] [place], [place] 600335 Nurse Practitioner Cardiovascular Disease 05/11/23
--- OUTSIDE RECORDS SUMMARY | 2024-01-06 09:39 | XMS_ITS | Encounter Summary ---
Author Organization [facility] Address [address] [place] [address] 15883 Care Team Providers Care Workforce Specialist Name Role Phone Roderick Morelos MD Unavailable [phone] Magno Wood MD Unavailable [phone] Sophie Ocasio AuD Unavailable [phone] Henny Rosales A OPERATOR FIRE FIGHTERS DISPATCHER Unavailable Sharee Oliva RD Unavailable [phone] Kaykay Duarte NP Primary Care Provider Christiane Rodríguez MD Unavailable Jing Cadena A OPERATOR SKIN LIFTER BACON Unavailable Radha Lopez [facility] Unavailable Luis A Escobedo MD Unavailable Geri LozaC Unavailable [phone] Raina Patterson A OPERATOR FIRE FIGHTERS DISPATCHER Unavailable [phone] Encounter Details Date Type Department Care Team (Late st Contact Info) Description 02/18/2023 [facility] Preoperative Assessment Center [address] 5th [place] [address] Nikky Babb, RN Social History [...] filedocumented in this encounter Additional Health Concerns Active Problems Noted Date Diagnosed Date BRIAN PATHWAY SURGERY IS SCHEDULED 10/15/2022 documented as of this encounter Care Teams Workforce Specialist Relationship Specialty Start Date End Date Kaykay Duarte ASSOCIATE SCIENTIST [address] [place] [address] PCP - General 10/15/22 Roderick Morelos MD [address] [place] [address] Cardiovascular Disease 02/03/22 Magno Wood MD [address] [place] [address] 586135 Otolaryngology 02/21/22 Sophie Ocasio, Nick 909 [place], [place] 884545 Director Chemistry Audiology 02/21/22 Henny Rosales APRN FIRE FIGHTERS DISPATCHER [address] [place] [phone] Assigned Heart and Vascular Provider 08/09/[address] [place] [address] [phone] Registered Dietitian Dietitian, Registered 09/02/22 Christiane Rodríguez MD [address] [place] [address] 396 [place], [place] 703805 Otolaryngology 11/12/22 Jing Cadena APRN SKIN LIFTER BACON [address] [place] [address] 450 [place], [place] 394425 Clinical Nurse Specialist Anesthesiology 01/15/23 Radha Lopez, [facility] [address] [place] [address] [phone] Pharmacist Pharmacist 01/16/23 Luis A Escobedo MD [address] [place] [address] 195 [place], [place] 585085 Assigned Surgical Provider 02/07/23 04/15/23 Geri Loza PA-C [address] [place] [address] 108885 Assigned Surgical Provider 04/16/23 Raina Patterson, GINA FIRE FIGHTERS DISPATCHER [address] [place] 705255 Nurse Practitioner Cardiovascular Disease 05/11/23 documented as of this encounter
--- OUTSIDE RECORDS SUMMARY | 2024-01-06 09:39 | XMS_ITS | Encounter Summary ---
Author Organization [facility] Address [address] [place] [address] 015[address] Care Team Providers Care Preparation Supervisor Freezing Name Role Phone Roderick Morelos MD Unavailable [phone] Magno Wood MD Unavailable [phone] Sophie Ocasio AuD Unavailable [phone] Henny Rosales DESIGN SALES CONSULTANT PATTERN DESIGNER Unavailable Sharee Oliva RD Unavailable [phone] Kaykay Duarte NP Primary Care Provider Christiane Rodríguez MD Unavailable [phone] Jing Cadena DESIGN SALES CONSULTANT CREW LEADER GLUING Unavailable Radha Lopez [facility] Unavailable Luis A Escobedo MD Unavailable Geri LozaC Unavailable [phone] Raina Patterson DESIGN SALES CONSULTANT PATTERN DESIGNER Unavailable [phone] Encounter Details Date Type Department Care Team (Late st Contact Info) Description 03/11/2023 MyC Medical Advice Initial Department [facility] [place] Social History Tobacco Use Types Packs/Day Years [...] documented as of this encounter Care Teams Preparation Supervisor Freezing Relationship Specialty Start Date End Date Kaykay Duarte INDUSTRIAL ROOFER [address] [place] [address] PCP - General 10/15/22 Roderick Morelos MD [address] [place] 553665 Cardiovascular Disease 02/03/22 Magno Wood MD [address] [place] [address] 640985 Otolaryngology 02/21/22 Sophie Ocasio AuD [address] [place] [address] 176375 Fold Skiver Audiology 02/21/22 Henny Rosales APRN PATTERN DESIGNER [address] [place] [phone] Assigned Heart and Vascular Provider 08/09/[address]09 [place] [address] Registered Dietitian Dietitian, Registered 09/02/22 Christiane Rodríguez MD [address] [facility] 396 [place] [address] Otolaryngology 11/12/22 Jing Cadena, DESIGN SALES CONSULTANT CREW LEADER GLUING [address] [facility] 450 [place], [place] 611155 Clinical Nurse Specialist Anesthesiology 01/15/23 Radha Lopez, [facility] [address] [place] [address] 10960 Pharmacist Pharmacist 01/16/23 Luis A Escobedo MD [address] [facility] 195 [place] [address] Assigned Surgical Provider 02/07/23 04/15/23 Geri Loza PA-C 9 [place] [address] Assigned Surgical Provider 04/16/23 Raina Patterson, GINA PATTERN DESIGNER [address] [facility] [address] [place], [place] 903015 Nurse Practitioner Cardiovascular Disease 05/11/23 documented as of this encounter
--- OUTSIDE RECORDS SUMMARY | 2024-01-06 09:39 | XMS_ITS | Encounter Summary ---
Author Organization [facility] Address [address] [place] [address] Care Team Providers Care Circus Hand Name Role Phone Roderick Morelos MD Unavailable [phone] Magno Wood MD Unavailable [phone] Sophie Ocasio AuD Unavailable Henny Rosales BATTERY TESTER MATERIALS TECH Unavailable Sharee Oliva RD Unavailable [phone] Kaykay Duarte NP Primary Care Provider Christiane Rodríguez MD Unavailable [phone] Jing Cadena BATTERY TESTER CHILD CARE TEACHER Unavailable Radha Lopez [facility] Unavailable Geri LozaC Unavailable Raina Patterson APRN MATERIALS TECH Unavailable Encounter Details Date Type Department Care Team (Late st Contact Info) Description 04/23/2023 [facility] [address] 4th [place] [address] Kang Griffiths Social History Tobacco [...] documented as of this encounter Care Teams Circus Hand Relationship Specialty Start Date End Date Kaykay Duarte BEEF GRINDER [address] [place] [address] PCP - General 10/15/22 Roderick Morelos MD [address] [place] 778305 Cardiovascular Disease 02/03/22 Magno Wood MD 420 [facility] 396 [place], [place] 396935 Otolaryngology 02/21/22 Sophie Ocasio AuD 909 [place], [place] 651845 Blind Hanger Audiology 02/21/22 Henny Rosales APRN MATERIALS TECH [address] [place] [phone] Assigned Heart and Vascular Provider 08/09/[address] 9 [place], [place] 479645 Registered Dietitian Dietitian, Registered 09/02/22 Christiane Rodríguez MD 420 [facility] 396 [place], [place] 607185 Otolaryngology 11/12/22 Jing Cadena APRN CHILD CARE TEACHER 420 [facility] 450 [place], [place] 428745 Clinical Nurse Specialist Anesthesiology 01/15/23 Radha Lopez, [facility] [address] [place] [address] 478045 Pharmacist Pharmacist 01/16/23 Geri Loza PA-C [address] [place] [address] 756145 Assigned Surgical Provider 04/16/23 Raina Patterson APRN MATERIALS TECH [address] [place] [address] [place] 248575 Nurse Practitioner Cardiovascular Disease 05/11/23 documented as of this encounter
--- OUTSIDE RECORDS SUMMARY | 2024-01-06 09:39 | XMS_ITS | Encounter Summary ---
Author Organization [facility] Address [address] [place] [address] 6[address] Care Team Providers Care Data Services Developer Name Role Phone Roderick Morelos MD Unavailable [phone] Magno Wood MD Unavailable [phone] Sophie Ocasio AuD Unavailable [phone] Henny Rosales OVER HAULER HELPER FINANCIAL SYSTEMS ANALYST Unavailable Sharee Oliva [address] Unavailable [phone] Kaykay Duarte NP Primary Care Provider Christiane Rodríguez MD Unavailable Jing Cadena OVER HAULER HELPER DOBBY LOOM WEAVER Unavailable Radha Lopez [facility] Unavailable Geri Loza PA-C Unavailable Raina Patterson APRN FINANCIAL SYSTEMS ANALYST Unavailable [phone] Encounter Details Date Type Department Care Team (Late st Contact Info) Description 10/18/2023 [facility] [address] [address] Radha Lopez, [address] [address] Social History Tobacco Use Types Packs/Day [...] documented as of this encounter Care Teams Data Services Developer Relationship Specialty Start Date End Date Kaykay Duarte [employer] S[employer] DIRECTOR [address] [place] [address] PCP - General 10/15/22 Roderick Morelos MD [address] [place] [address] Cardiovascular Disease 02/03/22 Magno Wood MD [address] [place] [address] 236735 Otolaryngology 02/21/22 Sophie Ocasio AuD 909 [place], [place] 573545 Construction Technician Audiology 02/21/22 Henny Rosales APRN FINANCIAL SYSTEMS ANALYST [address] [place] [id number] Assigned Heart and Vascular Provider 08/09/[address] [place] [address] [phone] Registered Dietitian Dietitian, Registered 09/02/22 Christiane Rodríguez MD [address] [place] [address] 396 [place], [place] 180665 Otolaryngology 11/12/22 Jing Cadena APRN DOBBY LOOM WEAVER [address] [place] [address] 450 [place], [place] 369945 Clinical Nurse Specialist Anesthesiology 01/15/23 Radha Lopez, [facility] [address] [place] [address] 066115 Pharmacist Pharmacist 01/16/23 Geri Loza PA-C [address] [place] [address] 090345 Assigned Surgical Provider 04/16/23 Raina Patterson APRN FINANCIAL SYSTEMS ANALYST [address] [facility] [address] [place] [phone] Nurse Practitioner Cardiovascular Disease 05/11/23 documented as of this encounter
--- OUTSIDE RECORDS SUMMARY | 2024-01-06 09:39 | XMS_ITS | Encounter Summary ---
Author Organization [facility] Address [address] [place] [address] Care Team Providers Care Gym Instructor Name Role Phone Roderick Morelos MD Unavailable [phone] Magno Wood MD Unavailable [phone] Sophie Ocasio AuD Unavailable Henny Rosales FARM SPECIALIST MEDICAID BUSINESS ANALYST Unavailable [phone] Unavailable [phone] Kaykay Duarte NP Primary Care Provider Christiane Rodríguez MD Unavailable Jing Cadena FARM SPECIALIST MEDICAL ACCOUNTS RECEIVABLE SPECIALIST Unavailable Radha Lopez [facility] Unavailable Luis A Escobedo MD Unavailable Geri LozaC Unavailable [phone] Raina Patterson FARM SPECIALIST MEDICAID BUSINESS ANALYST Unavailable [phone] Encounter Details Date Type Department Care Team (Late st Contact Info) Description 04/06/2023 [facility] [address] 4th [place] [address] Tanya Larsen RN Social History [...] documented as of this encounter Care Teams Gym Instructor Relationship Specialty Start Date End Date Kaykay Duarte PAINT TECHNICIAN [address] [place] [address] PCP - General 10/15/22 Roderick Morelos MD [address] [place] [address] Cardiovascular Disease 02/03/22 Magno Wood MD [address] [place] [address] [id number] Otolaryngology 02/21/22 Sophie Ocasio AuD 909 [place], [place] 897295 Scaler Audiology 02/21/22 Henny Rosales APRN MEDICAID BUSINESS ANALYST [address] [place] [id number] Assigned Heart and Vascular Provider 08/09/[address] [place] [address] 458505 Registered Dietitian Dietitian, Registered 09/02/22 Christiane Rodríguez MD 420 [facility] 396 [place], [place] 259315 Otolaryngology 11/12/22 Jing Cadena APRN MEDICAL ACCOUNTS RECEIVABLE SPECIALIST [address] [place] [address] 450 [place], [place] 935535 Clinical Nurse Specialist Anesthesiology 01/15/23 Radha Lopez, [facility] [address] [place] [address] 290885 Pharmacist Pharmacist 01/16/23 Luis A Escobedo MD [address] [place] [address] 195 [place], [place] 427735 Assigned Surgical Provider 02/07/23 04/15/23 Geri Loza PA-C [address] [place] [address] 122375 Assigned Surgical Provider 04/16/23 Raina Patterson APRN MEDICAID BUSINESS ANALYST [address] [place] 446945 Nurse Practitioner Cardiovascular Disease 05/11/23 documented as of this encounter
--- OUTSIDE RECORDS SUMMARY | 2024-01-06 09:39 | XMS_ITS | Encounter Summary ---
Author Organization [facility] Address [address] [place] [address] 97[address] Care Team Providers Care Electronic Gluer Name Role Phone Roderick Morelos MD Unavailable [phone] Magno Wood MD Unavailable [phone] Sophie Ocasio AuD Unavailable Henny Rosales RETAIL SUPERVISOR PANELBEATER Unavailable [phone] Unavailable [phone] Kaykay Duarte NP Primary Care Provider Christiane Rodríguez MD Unavailable [phone] Jing Cadena RETAIL SUPERVISOR WEDDING PLANNER Unavailable Radha Lopez [facility] Unavailable Luis A Escobedo MD Unavailable Geri LozaC Unavailable [phone] Raina Patterson RETAIL SUPERVISOR PANELBEATER Unavailable Encounter Details Date Type Department Care Team (Late st Contact Info) Description 03/11/2023 MyC Medical Advice Initial Department [facility] Social History Tobacco Use Types Packs/Day Years [...] documented as of this encounter Care Teams Electronic Gluer Relationship Specialty Start Date End Date Kaykay Duarte SUPERVISOR BENZENE REFINING [address] [place] [address] PCP - General 10/15/22 Roderick Morelos MD [address] [place] 239405 Cardiovascular Disease 02/03/22 Magno Wood MD [address] [place] [address] 312385 Otolaryngology 02/21/22 Sophie Ocasio AuD [address] [place] [address] 540575 Breaker Machine Operator Audiology 02/21/22 Henny Rosales APRN PANELBEATER [address] [place] [phone] Assigned Heart and Vascular Provider 08/09/[address] 909 [place] [address] Registered Dietitian Dietitian, Registered 09/02/22 Christiane Rodríguez MD 420 [facility] 396 [place] [address] Otolaryngology 11/12/22 Jing Cadena, RETAIL SUPERVISOR WEDDING PLANNER 420 [facility] 450 [place], [place] 054055 Clinical Nurse Specialist Anesthesiology 01/15/23 Radha Lopez, [facility] [address] [place] [address] 1956[address] Pharmacist Pharmacist 01/16/23 Luis A Escobedo MD 420 [facility] 195 [place] [address] Assigned Surgical Provider 02/07/23 04/15/23 Geri Loza PA-C 9 [place] [address] Assigned Surgical Provider 04/16/23 Raina Patterson, GINA PANELBEATER [address] [facility] [address] [place], [place] 594575 Nurse Practitioner Cardiovascular Disease 05/11/23 documented as of this encounter
--- OUTSIDE RECORDS SUMMARY | 2024-01-06 09:39 | XMS_ITS | Encounter Summary ---
Author Organization [facility] Address [facility] [place] [address] Care Team Providers Care Hogshead Cooper Name Role Phone Roderick Morelos MD Unavailable [phone] Magno Wood MD Unavailable [phone] Sophie Ocasio AuD Unavailable [phone] Henny Rosales PILOT CAN ROUTER ROOM SERVICE FOOD SERVICE ATTENDANT Unavailable Sharee Oliva [address] Unavailable [phone] Kaykay Duarte NP Primary Care Provider Christiane Rodríguez MD Unavailable Jing Cadena PILOT CAN ROUTER INFORMATION TECHNOLOGY ARCHITECT Unavailable Radha Lopez [facility] Unavailable Luis A Escobedo MD Unavailable Geri LozaC Unavailable Raina Patterson PILOT CAN ROUTER ROOM SERVICE FOOD SERVICE ATTENDANT Unavailable [phone] Encounter Details Date Type Department Care Team (Late st Contact Info) Description 03/17/2023 MyC Medical Advice UR PREOP/PHASE II 2450 [place] [address] Pearl Rocha, SKIP Social History [...] documented as of this encounter Care Teams Hogshead Cooper Relationship Specialty Start Date End Date Kaykay Duarte RIG HAND [address] [facility] [place] [address] PCP - General 10/15/22 Roderick Morelos MD [address] [place] [address] Cardiovascular Disease 02/03/22 Magno Wood MD [address] [place] [address] 810715 Otolaryngology 02/21/22 Sophie Ocasio AuD 909 [place], [place] 448755 Deep Fat Fry Cook Audiology 02/21/22 Henny Rosales APRN ROOM SERVICE FOOD SERVICE ATTENDANT [address] [place] [id number] Assigned Heart and Vascular Provider 08/09/[address] 9 [place], [place] 726825 Registered Dietitian Dietitian, Registered 09/02/22 Christiane Rodríguez MD 420 [facility] 396 [place], [place] 724435 Otolaryngology 11/12/22 Jing Cadena APRN INFORMATION TECHNOLOGY ARCHITECT 420 [facility] 450 [place], [place] 275335 Clinical Nurse Specialist Anesthesiology 01/15/23 Radha Lopez [facility] [address] [place] [address] [phone] Pharmacist Pharmacist 01/16/23 Luis A Escobedo MD 420 [facility] 195 [place], [place] 204985 Assigned Surgical Provider 02/07/23 04/15/23 Geri Loza PA-C [address] [place] [address] [phone] Assigned Surgical Provider 04/16/23 Raina Patterson, GINA ROOM SERVICE FOOD SERVICE ATTENDANT [address] [place] 799865 Nurse Practitioner Cardiovascular Disease 05/11/23 documented as of this encounter
--- OUTSIDE RECORDS SUMMARY | 2024-01-06 09:39 | XMS_ITS | Encounter Summary ---
Author Organization [place] Address [address] [place] [address] 65355 Care Team Providers Care Blower Room Attendant Name Role Phone Roderick Morelos MD Unavailable [phone] Magno Wood MD Unavailable [phone] Sophie Ocasio AuD Unavailable [phone] Henny Rosales WREATH AND GARLAND MAKER HAND FARM ADVISOR Unavailable Sharee Oliva RD Unavailable [phone] Kaykay Duarte NP Primary Care Provider Christiane Rodríguez MD Unavailable Jing Cadena WREATH AND GARLAND MAKER HAND COMPLETION ENGINEER Unavailable [phone] Radha Lopez [facility] Unavailable Luis A Escobedo MD Unavailable Geri LozaC Unavailable [phone] Raina Patterson WREATH AND GARLAND MAKER HAND FARM ADVISOR Unavailable [phone] Encounter Details Date Type Department Care Team (Late st Contact Info) Description 03/25/2023 [facility] [address] 4th [place] [address] aKng Griffiths Social History Tobacco Use Types Packs/Day [...] documented as of this encounter Care Teams Blower Room Attendant Relationship Specialty Start Date End Date Kaykay Duarte SLAB CONDITIONER SUPERVISOR [address] [place] [address] PCP - General 10/15/22 Roderick Morelos MD [address] [place] [address] Cardiovascular Disease 02/03/22 Magno Wood MD [address] [place] [address] 481675 Otolaryngology 02/21/22 Sophie Ocasio AuD 909 [place], [place] 352745 Mobile Pet Groomer Audiology 02/21/22 Henny Rosales APRN FARM ADVISOR [address] [place] [id number] Assigned Heart and Vascular Provider 08/09/[address] 9 [place], [place] 969595 Registered Dietitian Dietitian, Registered 09/02/22 Christiane Rodríguez MD 420 [facility] 396 [place], [place] 992425 Otolaryngology 11/12/22 Jing Cadena APRN COMPLETION ENGINEER 420 [facility] 450 [place], [place] 447885 Clinical Nurse Specialist Anesthesiology 01/15/23 Radha Lopez [facility] [address] [place] [address] 434105 Pharmacist Pharmacist 01/16/23 Luis A Escobedo MD 420 [facility] 195 [place], [place] 188235 Assigned Surgical Provider 02/07/23 04/15/23 Geri Loza PA-C [address] [place] [address] 234815 Assigned Surgical Provider 04/16/23 Raina Patterson, GINA FARM ADVISOR [address] [place] 301835 Nurse Practitioner Cardiovascular Disease 05/11/23 documented as of this encounter
--- OUTSIDE RECORDS SUMMARY | 2024-01-06 09:39 | XMS_ITS | Encounter Summary ---
Author Organization [place] Address [address] [place] [address] 42693 Care Team Providers Care Mid Wife Name Role Phone Roderick Morelos MD Unavailable [phone] Magno Wood MD Unavailable [phone] Sophie Ocasio AuD Unavailable [phone] Henny Rosales SLITTING AND SHIPPING SUPERVISOR MANAGER LATIN Unavailable [phone] Unavailable [phone] Kaykay Duarte NP Primary Care Provider Christiane Rodríguez MD Unavailable Jing Cadena SLITTING AND SHIPPING SUPERVISOR DAMPER FITTER Unavailable Radha Lopez [facility] Unavailable Luis A Escobedo MD Unavailable Geri LozaC Unavailable [phone] Raina Patterson SLITTING AND SHIPPING SUPERVISOR MANAGER LATIN Unavailable [phone] Encounter Details Date Type Department Care Team (Late st Contact Info) Description 04/14/2023 [facility] Medical Advice [facility] [address] 4th [place] [address] Tanya Larsen RN Social History [...] documented as of this encounter Care Teams Mid Wife Relationship Specialty Start Date End Date Kaykay Duarte INCOME TAX RETURN PREPARER [address] [place] [address] PCP - General 10/15/22 Roderick Morelos MD [address] [place] [address] Cardiovascular Disease 02/03/22 Magno Wood MD [address] [place] [address] [id number] Otolaryngology 02/21/22 Sophie Ocasio AuD 909 [place], [place] 105445 Chainsaw Mechanic Audiology 02/21/22 Henny Rosales APRN MANAGER LATIN [address] [place] [id number] Assigned Heart and Vascular Provider 08/09/[address] [place] [address] 491485 Registered Dietitian Dietitian, Registered 09/02/22 Christiane Rodríguez MD 420 [facility] 396 [place], [place] 811825 Otolaryngology 11/12/22 Jing Cadena APRN DAMPER FITTER [address] [place] [address] 450 [place], [place] 665885 Clinical Nurse Specialist Anesthesiology 01/15/23 Radha Lopez, [facility] [address] [place] [address] 019485 Pharmacist Pharmacist 01/16/23 Luis A Escobedo MD [address] [place] [address] 195 [place], [place] 764005 Assigned Surgical Provider 02/07/23 04/15/23 Geri Loza PA-C [address] [place] [address] 998695 Assigned Surgical Provider 04/16/23 Raina Patterson APRN MANAGER LATIN [address] [place] 129315 Nurse Practitioner Cardiovascular Disease 05/11/23 documented as of this encounter
--- OUTSIDE RECORDS SUMMARY | 2024-01-06 09:39 | XMS_ITS | Encounter Summary ---
Author Organization [place] Address [address] [place] [address] 28878 Care Team Providers Care Cut Off Machine Helper Name Role Phone Roderick Morelos MD Unavailable [phone] Magno Wood MD Unavailable Sohpie Ocasio AuD Unavailable [phone] Henny Rosales OPERATIONS SUPPORT ANALYST LINK AND LINK KNITTING MACHINE OPERATOR Unavailable Sharee Oliva [address] Unavailable [phone] Kaykay Duarte NP Primary Care Provider Christiane Rodríguez MD Unavailable [phone] Jing Cadena OPERATIONS SUPPORT ANALYST MARINE CONSULTANT Unavailable [phone] Radha Lopez [facility] Unavailable Luis A Escobedo MD Unavailable Geri LozaC Unavailable [phone] Raina Patterson OPERATIONS SUPPORT ANALYST LINK AND LINK KNITTING MACHINE OPERATOR Unavailable Encounter Details Date Type Department Care Team (Late st Contact Info) Description 03/31/2023 [facility] [address] 4th [place] [address] Tanya Larsen RN Social History [...] as of this encounter Care Teams Cut Off Machine Helper Relationship Specialty Start Date End Date Kaykay Duarte POLICE WORKER [address] [place] [address] PCP - General 10/15/22 Roderick Morelos MD [address] [place] [address] Cardiovascular Disease 02/03/22 Magno Wood MD [address] [place] [address] [phone] Otolaryngology 02/21/22 Sophie Ocasio AuD 909 [place], [place] 256835 Optical Mechanic Apprentice Audiology 02/21/22 Henny Rosales APRN LINK AND LINK KNITTING MACHINE OPERATOR [address] [place] [id number] Assigned Heart and Vascular Provider 08/09/[address] [place] [address] 075355 Registered Dietitian Dietitian, Registered 09/02/22 Christiane Rodríguez MD 420 [facility] 396 [place], [place] 959725 Otolaryngology 11/12/22 Jing Cadena APRN MARINE CONSULTANT [address] [place] [address] 450 [place], [place] 743755 Clinical Nurse Specialist Anesthesiology 01/15/23 Radha Lopez, [facility] [address] [place] [address] 729645 Pharmacist Pharmacist 01/16/23 Luis A Escobedo MD [address] [place] [address] 195 [place], [place] 072235 Assigned Surgical Provider 02/07/23 04/15/23 Geri Loza PA-C [address] [place] [address] 694705 Assigned Surgical Provider 04/16/23 Raina Patterson APRN LINK AND LINK KNITTING MACHINE OPERATOR [address] [place] 794905 Nurse Practitioner Cardiovascular Disease 05/11/23 documented as of this encounter
--- OUTSIDE RECORDS SUMMARY | 2024-01-06 09:39 | XMS_ITS | Encounter Summary ---
Author Organization [place] Address [address] [place] [address] 19976 Care Team Providers Care Equipment Installation Professional Name Role Phone Roderick Morelos MD Unavailable [phone] Magno Wood MD Unavailable [phone] Sophie Ocasio AuD Unavailable Henny Rosales SIGNAL MAINTENANCE TECHNICIAN MAT PUNCHER Unavailable Sharee Oliva [address] Unavailable [phone] Kaykay Duarte LICENSE INSPECTOR Primary Care Provider Christiane Rodríguez MD Unavailable Chely FernandezC Unavailable Jing Cadena SIGNAL MAINTENANCE TECHNICIAN DESKTOP OPERATOR Unavailable Radah Lopez [facility] Unavailable Luis A Escobedo MD Unavailable [phone] Geri LozaC Unavailable Raina Patterson SIGNAL MAINTENANCE TECHNICIAN MAT PUNCHER Unavailable [phone] Encounter Details Date Type Department Care Team (Late st Contact Info) Description 02/06/2023 [facility] [address] 4th [place] [address] Daniela [place] Social History Tobacco Use Types Packs/Day Years [...] documented as of this encounter Care Teams Equipment Installation Professional Relationship Specialty [place] [address] [place] [address] PCP - General 10/15/22 Roderick Morelos MD [address] [place] [address] Cardiovascular Disease 02/03/22 Magno Wood MD [address] [place] [address] 053405 Otolaryngology 02/21/22 Sophie Ocasio AuD [address] [place] [address] 773355 Java Grails Developer Audiology 02/21/22 Henny Rosales APRN MAT PUNCHER [address] [place] [id number] Assigned Heart and Vascular Provider 08/09/[address] [place] [address] 055665 Registered Dietitian Dietitian, Registered 09/02/22 Christiane Rodríguez MD [address] [place] [address] 396 [place], [place] 960485 Otolaryngology 11/12/22 Chely Fernandez PA-C [address] [place] [address] 726285 Assigned Surgical Provider 11/29/22 02/06/23 Jing Cadena APRN DESKTOP OPERATOR [address] [place] [address] 450 [place], [place] 557125 Clinical Nurse Specialist Anesthesiology 01/15/23 Radha Lopez, [facility] [address] [place] [address] 775615 Pharmacist Pharmacist 01/16/23 Luis A Escobedo MD [address] [place] [address] 195 [place], [place] 646545 Assigned Surgical Provider 02/07/23 04/15/23 Geri Loza PA-C [address] [place] [address] 207355 Assigned Surgical Provider 04/16/23 Raina Patterson APRN MAT PUNCHER [address] [facility] [address] [place], [place] 991345 Nurse Practitioner Cardiovascular Disease 05/11/23 documented as of this encounter
--- OUTSIDE RECORDS SUMMARY | 2024-01-06 09:39 | XMS_ITS | Encounter Summary ---
Author Organization [place] Address [address] [place] [address] 01407 Care Team Providers Care Cushion Former Name Role Phone Roderick Morelos MD Unavailable [phone] Magno Wood MD Unavailable [phone] Sophie Ocasio AuD Unavailable [phone] Henny Rosales DIRECTOR UNDERWRITER SALES MEAT WRAPPER Unavailable Sharee Oliva [address] Unavailable [phone] Kaykay Duarte NP Primary Care Provider Christiane Rodríguez MD Unavailable Jing Cadena DIRECTOR UNDERWRITER SALES METAL TRIMMER Unavailable Radha Lopez [facility] Unavailable [phone] Luis A Escobedo MD Unavailable Geri LozaC Unavailable [phone] Raina Patterson DIRECTOR UNDERWRITER SALES MEAT WRAPPER Unavailable [phone] Encounter Details Date Type Department Care Team (Late st Contact Info) Description 02/17/2023 [facility] Medical Advice [facility] Management [facility] [address] 4th [place] [address] [place], Henny, RN Social History [...] documented as of this encounter Care Teams Cushion Former Relationship Specialty [place] [address] [place] [address] PCP - General 10/15/22 Roderick Morelos MD [address] [place] 895555 Cardiovascular Disease 02/03/22 Magno Wood MD [address] [place] [address] 917485 Otolaryngology 02/21/22 Sophie Ocasio AuD 909 [place], [place] 278285 Foreign Exchange Student Coordinator Audiology 02/21/22 Henny Rosales APRN MEAT WRAPPER [address] [place] [phone] Assigned Heart and Vascular Provider 08/09/[address] 909 [place], [place] 639335 Registered Dietitian Dietitian, Registered 09/02/22 Christiane Rodríugez MD 420 [facility] 396 [place], [place] 954805 Otolaryngology 11/12/22 Jing Cadena APRN METAL TRIMMER 420 [facility] 450 [place] [address] Clinical Nurse Specialist Anesthesiology 01/15/23 Radha Lopez, [facility] [address] [place] [address] 483455 Pharmacist Pharmacist 01/16/23 Luis A Escobedo MD 420 [facility] 195 [place], [place] 098615 Assigned Surgical Provider 02/07/23 04/15/23 Geri Loza PA-C 9 [place], [place] 065835 Assigned Surgical Provider 04/16/23 Raina Patterson, GINA MEAT WRAPPER [address] [place] 739965 Nurse Practitioner Cardiovascular Disease 05/11/23 documented as of this encounter
--- OUTSIDE RECORDS SUMMARY | 2024-01-06 09:39 | XMS_ITS | Encounter Summary ---
Author Organization [place] Address [address] [place] [address] 68123 Care Team Providers Care Entry Level Sales Associate Name Role Phone Roderick Morelos MD Unavailable [phone] Magno Wood MD Unavailable [phone] Sophie Ocasio AuD Unavailable Henny Rosales CELERY TIER MAKE UP ARRANGER Unavailable [phone] Unavailable [phone] Kaykay Duarte COLD ROLL OPERATOR Primary Care Provider Christiane Rodríguez MD Unavailable Jing Cadena CELERY TIER CUFF SLITTER Unavailable Radha Lopez [facility] Unavailable Luis A Escobedo MD Unavailable Geri LozaC Unavailable [phone] Raina Patterson CELERY TIER MAKE UP ARRANGER Unavailable [phone] Encounter Details Date Type Department Care Team (Late st Contact Info) Description 03/21/2023 [facility] Medical Advice [facility] Weight Management Clinic [place] 416349 [facility] 4th [place] [address] Luis A Escobedo MD [address] [place] [address] 195 [place] [address] Social History Tobacco Use Types Packs/Day Years [...] documented as of this encounter Care Teams Entry Level Sales Associate Relationship Specialty Start Date End Date Kaykay Duarte, COLD ROLL OPERATOR [address] [facility] [place] 911717 PCP - General 10/15/22 Roderick Morelos MD [address] [place], [place] 619705 Cardiovascular Disease 02/03/22 Magno Wood MD 420 [facility] 396 [place], [place] 321625 Otolaryngology 02/21/22 Sophie Ocasio AuD 909 [place], [place] 929375 Records Administrator Audiology 02/21/22 Henny Rosales APRN MAKE UP ARRANGER [address] [place] [address] Assigned Heart and Vascular Provider 08/09/[address] 909 [place] [address] Registered Dietitian Dietitian, Registered 09/02/22 Christiane Rodríguez MD 420 [facility] 396 [place], [place] 221465 Otolaryngology 11/12/22 Jing Cadena APRN CUFF SLITTER 420 [facility] 450 [place], [place] 157795 Clinical Nurse Specialist Anesthesiology 01/15/23 Radha Lopez, [facility] 909 [place], [place] 431895 Pharmacist Pharmacist 01/16/23 Luis A Escobedo MD 420 [facility] 195 [place] [address] Assigned Surgical Provider 02/07/23 04/15/23 Geri Loza PA-C 909 [place] [address] Assigned Surgical Provider 04/16/23 Raina Patterson APRN MAKE UP ARRANGER [address] [place] [address] Nurse Practitioner Cardiovascular Disease 05/11/23 documented as of this encounter
--- OUTSIDE RECORDS SUMMARY | 2024-01-06 09:39 | XMS_ITS | Encounter Summary ---
Author Organization [place] Address [address] [place] [address] 46603 Care Team Providers Care Home Paraprofessional Name Role Phone Roderick Morelos MD Unavailable [phone] Magno Wood MD Unavailable [phone] Sophie Ocasio AuD Unavailable [phone] Henny Rosales POMOLOGY TEACHER ETHNOLOGY PROFESSOR Unavailable [phone] Unavailable [phone] Kaykay Duarte NP Primary Care Provider Christiane Rodríguez MD Unavailable [phone] Jing Cadena POMOLOGY TEACHER MUSICAL INSTRUMENT MAKER OR REPAIRER Unavailable Radha Lopez [facility] Unavailable Luis A Escobedo MD Unavailable Geri LozaC Unavailable [phone] Raina Patterson POMOLOGY TEACHER ETHNOLOGY PROFESSOR Unavailable [phone] Encounter Details Date Type Department Care Team (Late st Contact Info) Description 03/24/2023 [facility] Adv[facility] [address] 4th [place] [address] Angélica Milligan Social History Tobacco [...] as of this encounter Care Teams Home Paraprofessional Relationship Specialty Start Date End Date Kaykay Duarte, SHIRT SORTER [address] [place] [address] PCP - General 10/15/22 Roderick Morelos MD [address] [place] [address] Cardiovascular Disease 02/03/22 Magno Wood MD [address] [place] [address] 396 [place], [place] 134395 Otolaryngology 02/21/22 Sophie Ocasio AuD 909 [place], [place] 850565 Cork Slabs Sawyer Audiology 02/21/22 Henny Rosales APRN ETHNOLOGY PROFESSOR [address] [place] [id number] Assigned Heart and Vascular Provider 08/09/[address] 909 [place], [place] 013555 Registered Dietitian Dietitian, Registered 09/02/22 Christiane Rodríguez MD 420 [facility] 396 [place], [place] 769015 Otolaryngology 11/12/22 Jing Cadena APRN MUSICAL INSTRUMENT MAKER OR REPAIRER 420 [facility] 450 [place], [place] 267465 Clinical Nurse Specialist Anesthesiology 01/15/23 Radha Lopez [facility] [address] [place] [address] 993095 Pharmacist Pharmacist 01/16/23 Luis A Escobedo MD 420 [facility] 195 [place], [place] 361655 Assigned Surgical Provider 02/07/23 04/15/23 Geri Loza PA-C [address] [place] [address] 310495 Assigned Surgical Provider 04/16/23 Raina Patterson, GINA ETHNOLOGY PROFESSOR [address] [place] 486805 Nurse Practitioner Cardiovascular Disease 05/11/23 documented as of this encounter
--- OUTSIDE RECORDS SUMMARY | 2024-01-06 09:39 | XMS_ITS | Encounter Summary ---
Author Organization [place] Address [address] [place] [address] 87774 Care Team Providers Care Hl7 Developer Name Role Phone Roderick Morelos MD Unavailable Magno Wood MD Unavailable [phone] Sophie Ocasio AuD Unavailable Henny Rosales ARM REST BUILDER CIVILIAN TECHNICIAN Unavailable [phone] Unavailable [phone] Kaykay Duarte NP Primary Care Provider Christiane Rodríguez MD Unavailable Jing Cadena ARM REST BUILDER CEMENT TRUCK DRIVER Unavailable [phone] Radha Lopez [facility] Unavailable Luis A Escobedo MD Unavailable Geri LozaC Unavailable [phone] Raina Patterson ARM REST BUILDER CIVILIAN TECHNICIAN Unavailable [phone] Encounter Details Date Type Department Care Team (Late st Contact Info) Description 02/17/2023 [facility] Medical Advice [facility] Weight Management Clinic [address] 4th [place] [address] [place], Henny, RN Social History [...] documented as of this encounter Care Teams Hl7 Developer Relationship Specialty [place] [address] [place] [address] PCP - General 10/15/22 Roderick Morelos MD [address] [place] 131295 Cardiovascular Disease 02/03/22 Magno Wood MD [address] [place] [address] 240405 Otolaryngology 02/21/22 Sophie Ocasio AuD 909 [place], [place] 971585 Dukey Rider Audiology 02/21/22 Henny Rosales APRN CIVILIAN TECHNICIAN [address] [place] [address] Assigned Heart and Vascular Provider 08/09/[address]09 [place], [place] 802935 Registered Dietitian Dietitian, Registered 09/02/22 Christiane Rodríguez MD 420 [facility] 396 [place], [place] 758885 Otolaryngology 11/12/22 Jing Cadena APRN CEMENT TRUCK DRIVER 420 [facility] 450 [place] [address] Clinical Nurse Specialist Anesthesiology 01/15/23 Radha Lopez, [facility] [address] [place] [address] 680205 Pharmacist Pharmacist 01/16/23 Luis A Escobedo MD 420 [facility] 195 [place], [place] 013115 Assigned Surgical Provider 02/07/23 04/15/23 Geri Loza PA-C 9 [place], [place] 137195 Assigned Surgical Provider 04/16/23 Raina Patterson, GINA CIVILIAN TECHNICIAN [address] [place] 939565 Nurse Practitioner Cardiovascular Disease 05/11/23 documented as of this encounter
--- OUTSIDE RECORDS SUMMARY | 2024-01-06 09:39 | XMS_ITS | Encounter Summary ---
Author Organization [facility] Address [address] [place] [address] 78153 Care Team Providers Care Kaiako Kura Tuarua Name Role Phone Roderick Morelos MD Unavailable [phone] Magno Wood MD Unavailable [phone] Sophie Ocasio AuD Unavailable Henny Rosales MANAGER SERVICING SUPERVISOR BLEACH PLANT Unavailable Sharee Oliva [address] Unavailable [phone] Kaykay Duarte NP Primary Care Provider [phone] Christiane Rodríguez MD Unavailable Jing Cadena MANAGER SERVICING FOSTER WINDER Unavailable Radha Lopez [facility] Unavailable Luis A Escobedo MD Unavailable Geri LozaC Unavailable [phone] Raina Patterson MANAGER SERVICING SUPERVISOR BLEACH PLANT Unavailable [phone] Encounter Details Date Type Department Care Team (Late st Contact Info) Description 04/02/2023 [facility] Medical Advice [facility] Weight Management Clinic [address] 4th [place] [address] Tanya Larsen RN Social History [...] documented as of this encounter Care Teams Kaiako Kura Tuarua Relationship Specialty Start Date End Date Kaykay Duarte OYSTER WORKER [address] [place] [address] PCP - General 10/15/22 Roderick Morelos MD [address] [place] [address] Cardiovascular Disease 02/03/22 Magno Wood MD [address] [place] [address] 53884455 Otolaryngology 02/21/22 Sophie Ocasio AuD 909 [place], [place] 692375 Wood Cabinetmaker Audiology 02/21/22 Henny Rosales APRN SUPERVISOR BLEACH PLANT [address] [place] [id number] Assigned Heart and Vascular Provider 08/09/[address] [place] [address] 867025 Registered Dietitian Dietitian, Registered 09/02/22 Christiane Rodríguez MD 420 [facility] 396 [place], [place] 207255 Otolaryngology 11/12/22 Jing Cadena APRN FOSTER WINDER [address] [place] [address] 450 [place], [place] 448945 Clinical Nurse Specialist Anesthesiology 01/15/23 Radha Lopez, [facility] [address] [place] [address] 322335 Pharmacist Pharmacist 01/16/23 Luis A Escobedo MD [address] [place] [address] 195 [place], [place] 779655 Assigned Surgical Provider 02/07/23 04/15/23 Geri Loza PA-C [address] [place] [address] 574055 Assigned Surgical Provider 04/16/23 Raina Patterson APRN SUPERVISOR BLEACH PLANT [address] [place] 514845 Nurse Practitioner Cardiovascular Disease 05/11/23 documented as of this encounter
--- OUTSIDE RECORDS SUMMARY | 2024-01-06 09:40 | XMS_ITS | Encounter Summary ---
Author Organization [facility] Address [address] [place] [address] 01003 Care Team Providers Care Lumber Salvager Name Role Phone Roderick Morelos MD Unavailable [phone] Magno Wood MD Unavailable [phone] Sophie Ocasio AuD Unavailable [phone] Henny Rosales SENIOR CONTROLS ENGINEER BIOMETRY TEACHER Unavailable Sharee Oliva RD Unavailable [phone] Kaykay Duarte OCCUPATIONAL HEALTH AND SAFETY OFFICER Primary Care Provider [phone] Christiane Rodríguez MD Unavailable Chely FernandezC Unavailable [phone] Jing Cadena SENIOR CONTROLS ENGINEER AMMONIA WORKER Unavailable Radha Lopez [facility] Unavailable [phone] Luis A Escobedo MD Unavailable [phone] Geri LozaC Unavailable [phone] Raina Patterson SENIOR CONTROLS ENGINEER BIOMETRY TEACHER Unavailable [phone] Encounter Details Date Type Department Care Team (Late st Contact Info) Description 01/21/2023 [facility] [address]th [place] [address] Radha Dominguez, RN 420 [facility] 195 [place] [address] Social History Tobacco Use Types [...] as of this encounter Care Teams Lumber Salvager Relationship Specialty [place] [address] [place] [address] PCP - General 10/15/22 Roderick Morelos MD [address] [place] [address] Cardiovascular Disease 02/03/22 Magno Wood MD 420 [facility] 396 [place], [place] 410775 Otolaryngology 02/21/22 Sophie Ocasio AuD 909 [facility] [place], [place] 131275 Setter Machine Audiology 02/21/22 Henny Rosales, SENIOR CONTROLS ENGINEER BIOMETRY TEACHER [address] [place] [address] Assigned Heart and Vascular Provider 08/09/[address] [place] [address] 612885 Registered Dietitian Dietitian, Registered 09/02/22 Christiane Rodríguez MD 420 [facility] 396 [place], [place] 745065 Otolaryngology 11/12/22 Chely Fernandez PA-C [address] [place] [address] 744055 Assigned Surgical Provider 11/29/22 02/06/23 Jing Cadena SENIOR CONTROLS ENGINEER AMMONIA WORKER [address] [place] [address] 450 [place] [address] Clinical Nurse Specialist Anesthesiology 01/15/23 Radha Lopez, [facility] [address] [place] [address] 305085 Pharmacist Pharmacist 01/16/23 Luis A Escobedo MD 420 [facility] 195 [place], [place] 390185 Assigned Surgical Provider 02/07/23 04/15/23 Geri Loza PA-C [address] [place] [address] 587065 Assigned Surgical Provider 04/16/23 Raina Patterson, SENIOR CONTROLS ENGINEER BIOMETRY TEACHER [address] [facility] [address] [place] 322815 Nurse Practitioner Cardiovascular Disease 05/11/23 documented as of this encounter
--- OUTSIDE RECORDS SUMMARY | 2024-01-06 09:40 | XMS_ITS | Encounter Summary ---
Author Organization [facility] Address [address] [place] [address] 97[address] Care Team Providers Care Electronics Design Engineer Name Role Phone Roderick Morelos MD Unavailable [phone] Magno Wood MD Unavailable [phone] Sophie Ocasio AuD Unavailable [phone] Henny Rosales PARKING GARAGE MANAGER SEAL EXTRUSION OPERATOR Unavailable Sharee Oliva [address] Unavailable [phone] Kaykay Duarte BILL COLLECTOR Primary Care Provider Christiane Rodríguez MD Unavailable Chely FernandezC Unavailable Jing Cadena PARKING GARAGE MANAGER KNOBBER Unavailable [phone] Radha Lopez [facility] Unavailable [phone] Luis A Escobedo MD Unavailable [phone] Geri LozaC Unavailable Raina Patterson PARKING GARAGE MANAGER SEAL EXTRUSION OPERATOR Unavailable [phone] Encounter Details Date Type Department Care Team (Late st Contact Info) Description 01/21/2023 [facility] [address]th [place] [address] Radha Dominguez, RN 420 [facility] 195 [place] [address] Social History Tobacco Use Types [...] documented as of this encounter Care Teams Electronics Design Engineer Relationship Specialty [place] [address] [place] [address] PCP - General 10/15/22 Roderick Morelos MD [address] [place] [address] Cardiovascular Disease 02/03/22 Magno Wood MD 420 [facility] 396 [place], [place] 758185 Otolaryngology 02/21/22 Sophie Ocasio AuD 909 [facility] [place], [place] 982115 Air Brake Operator Audiology 02/21/22 Henny Rosales, PARKING GARAGE MANAGER SEAL EXTRUSION OPERATOR [address] [place] [address] Assigned Heart and Vascular Provider 08/09/[address] [place] [address] [phone] Registered Dietitian Dietitian, Registered 09/02/22 Christiane Rodríguez MD 420 [facility] 396 [place], [place] 932635 Otolaryngology 11/12/22 Chely Fernandez PA-C [address] [place] [address] 403265 Assigned Surgical Provider 11/29/22 02/06/23 Jing Cadena PARKING GARAGE MANAGER KNOBBER [address] [place] [address] 450 [place] [address] Clinical Nurse Specialist Anesthesiology 01/15/23 Radha Lopez, [facility] [address] [place] [address] 688505 Pharmacist Pharmacist 01/16/23 Luis A Escobedo MD 420 [facility] 195 [place], [place] 503565 Assigned Surgical Provider 02/07/23 04/15/23 Geri oLza PA-C [address] [place] [address] 162935 Assigned Surgical Provider 04/16/23 Raina Patterson, PARKING GARAGE MANAGER SEAL EXTRUSION OPERATOR [address] [facility] [address] [place] 018615 Nurse Practitioner Cardiovascular Disease 05/11/23 documented as of this encounter
--- OUTSIDE RECORDS SUMMARY | 2024-01-06 09:40 | XMS_ITS | Encounter Summary ---
Author Organization [facility] Address [address] [place] [address] 59786 Care Team Providers Care Fire Extinguisher Mechanic Name Role Phone Roderick Morelos MD Unavailable Magno Wood MD Unavailable [phone] Sophie Ocasio Unavailable [phone] Henny Rosales EPIC CADENCE ANALYST SUPERVISOR STONE Unavailable Sharee Oliva RD Unavailable [phone] Kaykay Duarte FIRE ALARM OPERATOR Primary Care Provider [phone] Christiane Rodríguez MD Unavailable Luis A Escobedo MD Unavailable [phone] Chely Fernandez-C Unavailable [phone] Jing Cadena APRN SEWING MACHINE OPERATOR ZIPPER Unavailable Radha Lopez [facility] Unavailable [phone] Luis A Escobedo MD Unavailable [phone] Geri LozaC Unavailable [phone] Raina Patterson APRN SUPERVISOR STONE Unavailable [phone] Encounter Details Date Type Department Care Team (Late st Contact Info) Description 11/21/2022 [facility] [place] 909 [facility] 4th [place] [address] Geri Loza PA-C [address] [place] [address] [phone] Social History Tobacco Use Types Packs/Day Years [...] documented as of this encounter Care Teams Fire Extinguisher Mechanic Relationship Specialty Start Date End Date Kaykay Duarte FIRE ALARM OPERATOR [address] [place] [address] PCP - General 10/15/22 Roderick Morelos MD [address] [place] 107035 Cardiovascular Disease 02/03/22 Magno Wood MD [address] [place] [facility] 396 [place], [place] 370085 Otolaryngology 02/21/22 Sophie Ocasio AuD 909 [place], [place] 521725 Stone Driller Helper Audiology 02/21/22 Henny Rosales, EPIC CADENCE ANALYST SUPERVISOR STONE [address] [place] [address] Assigned Heart and Vascular Provider 08/09/[address] [place] [address] 105435 Registered Dietitian Dietitian, Registered 09/02/22 Christiane Rodríguez MD [address] [place] [address] 396 [place] [address] Otolaryngology 11/12/22 Luis A Escobedo MD 420 [facility] 195 [place] [address] Assigned Surgical Provider 11/01/22 11/28/22 Chely Fernandez PA-C [address] [place] [address] [phone] Assigned Surgical Provider 11/29/22 02/06/23 Jing Cadena, EPIC CADENCE ANALYST SEWING MACHINE OPERATOR ZIPPER 420 [facility] 450 [place] [address] Clinical Nurse Specialist Anesthesiology 01/15/23 Radha Lopez [facility] [address] [place] [address] 503245 Pharmacist Pharmacist 01/16/23 Luis A Escobedo MD [address] [place] [facility] 195 [place] [address] Assigned Surgical Provider 02/07/23 04/15/23 Geri Loza PA-C 909 [place] [address] Assigned Surgical Provider 04/16/23 Raina Patterson APRN [facility] [address] [place], [place] 338955 Nurse Practitioner Cardiovascular Disease 05/11/23 documented as of this encounter
--- OUTSIDE RECORDS SUMMARY | 2024-01-06 09:40 | XMS_ITS | Encounter Summary ---
Author Organization [facility] Address [address] [place] [address] 7[address] Care Team Providers Care Fruit Bar Maker Name Role Phone Roderick Morelos MD Unavailable [phone] Magno Wood MD Unavailable [phone] Sophie Ocasio AuD Unavailable Henny Rosales COLLECTION CLERK STEAM OVEN OPERATOR Unavailable Sharee Oliva [address] Unavailable [phone] Kaykay Duarte SENIOR DIRECTOR CREATIVE SERVICES Primary Care Provider Christiane Rodríguez MD Unavailable [phone] Chely FernandezC Unavailable Jing Cadena COLLECTION CLERK FILTER PLANT SUPERVISOR Unavailable Radha Lopez [facility] Unavailable Luis A Escobedo MD Unavailable [phone] Geri LozaC Unavailable [phone] Raina Patterson COLLECTION CLERK STEAM OVEN OPERATOR Unavailable [phone] Encounter Details Date Type Department Care Team (Late st Contact Info) Description 01/07/2023 [facility] [address]th [place] [phone] [place]a [place] Social History Tobacco Use Types [...] documented as of this encounter Care Teams Fruit Bar Maker Relationship Specialty [place] [address] [place] [address] PCP - General 10/15/22 Roderick Morelos MD [address] [place] [address] Cardiovascular Disease 02/03/22 Magno Wood MD [address] [place] [address] 653145 Otolaryngology 02/21/22 Sophie Ocasio AuD [address] [place] [address] 905455 Head Athletic Trainer/Strength Coach Audiology 02/21/22 Henny Rosales APRN STEAM OVEN OPERATOR [address] [place] [address]80052108 Assigned Heart and Vascular Provider 08/09/[address] [place] [address] 560645 Registered Dietitian Dietitian, Registered 09/02/22 Christiane Rodríguez MD [address] [place] [address] 396 [place], [place] 702995 Otolaryngology 11/12/22 Chely Fernandez PA-C [address] [place] [address] 765505 Assigned Surgical Provider 11/29/22 02/06/23 Jing Cadena APRN FILTER PLANT SUPERVISOR [address] [place] [address] 450 [place], [place] 553605 Clinical Nurse Specialist Anesthesiology 01/15/23 Radha Lopez, [facility] [address] [place] [address] 407685 Pharmacist Pharmacist 01/16/23 Luis A Escobedo MD [address] [place] [address] 195 [place], [place] 008595 Assigned Surgical Provider 02/07/23 04/15/23 Geri Loza PA-C [address] [place] [address] 154965 Assigned Surgical Provider 04/16/23 Raina Patterson APRN STEAM OVEN OPERATOR [address] [facility] [address] [place], [place] 586035 Nurse Practitioner Cardiovascular Disease 05/11/23 documented as of this encounter
--- OUTSIDE RECORDS SUMMARY | 2024-01-06 09:40 | XMS_ITS | Encounter Summary ---
Author Organization [facility] Address [address] [place] [address] 70567 Care Team Providers Care Ham Marker Name Role Phone Roderick Morelos MD Unavailable [phone] Magno Wood MD Unavailable [phone] Sophie Ocasio AuD Unavailable Henny Rosales TUBE FORMER OPERATOR MARKETING TRAFFIC MANAGER Unavailable Sharee Oliva RD Unavailable [phone] Kaykay Duarte DISPENSARY ATTENDANT Primary Care Provider Christiane Rodríguez MD Unavailable Chely FernandezC Unavailable Jing Cadena TUBE FORMER OPERATOR LOAN AUDITOR Unavailable Radha Lopez [facility] Unavailable Luis A Escobedo MD Unavailable [phone] Geri LozaC Unavailable [phone] Raina Patterson TUBE FORMER OPERATOR MARKETING TRAFFIC MANAGER Unavailable Encounter Details Date Type Department Care Team (Late st Contact Info) Description 01/13/2023 [facility] Medical Advice Initial Department Kang Griffiths Social History Tobacco Use Types [...] documented as of this encounter Care Teams Ham Marker Relationship Specialty Start Date End Date Kaykay Duarte DISPENSARY ATTENDANT [address] [place] [address] PCP - General 10/15/22 Roderick Morelos MD [address] [place] [address] Cardiovascular Disease 02/03/22 Magno Wood MD 420 [facility] 396 [place], [place] 636865 Otolaryngology 02/21/22 Sophie Ocasio AuD 909 [place], [place] 882755 Interviewing Clerk Audiology 02/21/22 Henny Rosales APRN MARKETING TRAFFIC MANAGER [address] [place] [address] Assigned Heart and Vascular Provider 08/09/[address] 909 [place], [place] 176645 Registered Dietitian Dietitian, Registered 09/02/22 Christiane Rodríguez MD 420 [facility] 396 [place], [place] 286755 Otolaryngology 11/12/22 Chely Fernandez PA-C [address] [place] [address] 827585 Assigned Surgical Provider 11/29/22 02/06/23 Jing Cadena APRN LOAN AUDITOR 420 [facility] 450 [place], [place] 636755 Clinical Nurse Specialist Anesthesiology 01/15/23 Radha Lopez, [facility] [address] [place] [address] 543165 Pharmacist Pharmacist 01/16/23 Luis A Escobedo MD 420 [facility] 195 [place], [place] 324035 Assigned Surgical Provider 02/07/23 04/15/23 Geri Loza PA-C [address] [place] [address] 432685 Assigned Surgical Provider 04/16/23 Raina Patterson APRN MARKETING TRAFFIC MANAGER [address] [place] [address] [place] 741875 Nurse Practitioner Cardiovascular Disease 05/11/23 documented as of this encounter
--- OUTSIDE RECORDS SUMMARY | 2024-01-06 09:40 | XMS_ITS | Encounter Summary ---
Author Organization [facility] Address [address] [place] [address] 85962 Care Team Providers Care Public Affairs Officer Name Role Phone Roderick Morelos MD Unavailable [phone] Magno Wood MD Unavailable [phone] Sophie Ocasio AuD Unavailable [phone] Henny Rosales RESEARCH LAB ASSISTANT MEDIATION COMMISSIONER Unavailable Sharee Oliva RD Unavailable [phone] Kaykay Duarte SUPERVISOR FLOOR ASSEMBLY Primary Care Provider [phone] Christiane Rodríguez MD Unavailable Chely FernandezC Unavailable Jing Cadena RESEARCH LAB ASSISTANT CRACKER SPRAYER Unavailable [phone] Radha Lopez [facility] Unavailable Luis A Escobedo MD Unavailable [phone] Geri LozaC Unavailable Raina Patterson RESEARCH LAB ASSISTANT MEDIATION COMMISSIONER Unavailable [phone] Encounter Details Date Type Department Care Team (Late st Contact Info) Description 01/26/2023 [facility] [address]th [place] [phone] Henny Arguello, RN Social History Tobacco Use [...] as of this encounter Care Teams Public Affairs Officer Relationship Specialty Start Date End Date Kaykay Duarte SUPERVISOR FLOOR ASSEMBLY [address] [place] [address] [facility] [place] [address] PCP - General 10/15/22 Roderick Morelos MD [address] [place] [address] Cardiovascular Disease 02/03/22 Magno Wood MD [address] [place] [address] 827505 Otolaryngology 02/21/22 Sophie Ocasio, Nick [address] [place] [address] 322195 Hair Stylist Audiology 02/21/22 Henny Rosales, RESEARCH LAB ASSISTANT MEDIATION COMMISSIONER [address] [place] [address] Assigned Heart and Vascular Provider 08/09/[address] [place] [address] 784355 Registered Dietitian Dietitian, Registered 09/02/22 Christiane Rodríguez MD [address] [place] [address] 396 [place], [place] 790555 Otolaryngology 11/12/22 Chely Fernandez PA-C [address] [place] [address] 895855 Assigned Surgical Provider 11/29/22 02/06/23 Jing Cadena APRN CRACKER SPRAYER [address] [place] [address] 450 [place], [place] 022095 Clinical Nurse Specialist Anesthesiology 01/15/23 Radha Lopez, [facility] [address] [place] [address] 130395 Pharmacist Pharmacist 01/16/23 Luis A Escobedo MD [address] [place] [address] 195 [place], [place] 784215 Assigned Surgical Provider 02/07/23 04/15/23 Geri Loza PA-C [address] [place] [address] 890425 Assigned Surgical Provider 04/16/23 Raina Patterson APRN MEDIATION COMMISSIONER [address] [facility] [address] [place], [place] 648255 Nurse Practitioner Cardiovascular Disease 05/11/23 documented as of this encounter
--- OUTSIDE RECORDS SUMMARY | 2024-01-06 09:40 | XMS_ITS | Encounter Summary ---
Author Organization [facility] Address [address] [place] [address] 66533 Care Team Providers Care Dentist/Owner Name Role Phone Roderick Morelos MD Unavailable [phone] Magno Wood MD Unavailable Sophie Ocasio Unavailable [phone] Henny Rosales UNEMPLOYMENT SPECIALIST NURSING UNIT MANAGER Unavailable Sharee Oliva [address] Unavailable [phone] Kaykay Duarte HUNTER GUIDE Primary Care Provider [phone] Christiane Rodríguez MD Unavailable [phone] Luis A Escobedo MD Unavailable [phone] Chely Fernandez-C Unavailable [phone] Jing Cadena APRN DEPARTMENT STORE SALESPERSON Unavailable Radha Lopez [facility] Unavailable [phone] Luis A Escobedo MD Unavailable [phone] Geri LozaC Unavailable [phone] Raina Patterson APRN NURSING UNIT MANAGER Unavailable [phone] Encounter Details Date Type Department Care Team (Late st Contact Info) Description 11/07/2022 [facility] Medical Advice [facility] [place] 909 [facility] 4th [place] [phone] Geri Loza PA-C [address] [place] [address] 175055 Social History Tobacco Use Types Packs/Day Years [...] documented as of this encounter Care Teams Dentist/Owner Relationship Specialty Start Date End Date Kaykay Duarte HUNTER GUIDE [address] [place] [address] PCP - General 10/15/22 Roderick Morelos MD [address] [place] 574735 Cardiovascular Disease 02/03/22 Magno Wood MD [address] [facility] 396 [place], [place] 374015 Otolaryngology 02/21/22 Sophie Ocasio AuD 909 [place], [place] 790005 Qualifications Examiner Audiology 02/21/22 Henny Rosales, UNEMPLOYMENT SPECIALIST NURSING UNIT MANAGER [address] [place] [address] Assigned Heart and Vascular Provider 08/09/[address] [place] [address] 573985 Registered Dietitian Dietitian, Registered 09/02/22 Christiane Rodríguez MD [address] [place] [address] 396 [place] [address] Otolaryngology 11/12/22 Luis A Escobedo MD 420 [facility] 195 [place] [address] Assigned Surgical Provider 11/01/22 11/28/22 Chely Fernandez PA-C [address] [place] [address] 340245 Assigned Surgical Provider 11/29/22 02/06/23 Jing Cadena, UNEMPLOYMENT SPECIALIST DEPARTMENT STORE SALESPERSON 420 [facility] 450 [place] [address] Clinical Nurse Specialist Anesthesiology 01/15/23 Radha Lopez [facility] [address] [place] [address] 798835 Pharmacist Pharmacist 01/16/23 Luis A Escobedo MD [address] [facility] 195 [place] [address] Assigned Surgical Provider 02/07/23 04/15/23 Geri Loza PA-C 909 [place] [address] Assigned Surgical Provider 04/16/23 Raina Patterson APRN [facility] [address] [place], [place] 126005 Nurse Practitioner Cardiovascular Disease 05/11/23 documented as of this encounter
--- OUTSIDE RECORDS SUMMARY | 2024-01-06 09:40 | XMS_ITS | Encounter Summary ---
Author Organization [place] Address [address] [place] [address] 39897 Care Team Providers Care Director Food And Beverage Name Role Phone Roderick Morelos MD Unavailable [phone] Magno Wood MD Unavailable [phone] Sophie Ocasio AuD Unavailable [phone] Henny Rosales ASSISTANT PASTRY CHEF GRAPHICS ARTIST Unavailable Sharee Oliva RD Unavailable [phone] Kaykay Duarte HVAC MECHANICAL ENGINEER Primary Care Provider Christiane Rodríguez MD Unavailable Chely FernandezC Unavailable Jing Cadena ASSISTANT PASTRY CHEF INSTRUMENT MAN Unavailable Radha Lopez [facility] Unavailable Luis A Escobedo MD Unavailable [phone] Geri LozaC Unavailable [phone] Raina Patterson ASSISTANT PASTRY CHEF GRAPHICS ARTIST Unavailable [phone] Encounter Details Date Type Department Care Team (Late st Contact Info) Description 01/09/2023 [facility] [address] [place] [address] Radha Dominguez, RN 420 [facility] 195 [place] [address] Social History Tobacco Use Types [...] as of this encounter Care Teams Director Food And Beverage Relationship Specialty [place] [address] [place] [address] PCP - General 10/15/22 Roderick Morelos MD [address] [place] [address] Cardiovascular Disease 02/03/22 Magno Wood MD 420 [facility] 396 [place], [place] 288915 Otolaryngology 02/21/22 Sophie Ocasio AuD 909 [facility] [place], [place] 237665 Chip Person Audiology 02/21/22 Henny Rosales, ASSISTANT PASTRY CHEF GRAPHICS ARTIST [address] [place] [address] Assigned Heart and Vascular Provider 08/09/[address] [place] [address] 800835 Registered Dietitian Dietitian, Registered 09/02/22 Christiane Rodríguez MD 420 [facility] 396 [place], [place] 451155 Otolaryngology 11/12/22 Chely Fernandez PA-C [address] [place] [address] 248775 Assigned Surgical Provider 11/29/22 02/06/23 Jing Cadena ASSISTANT PASTRY CHEF INSTRUMENT MAN [address] [place] [address] 450 [place] [address] Clinical Nurse Specialist Anesthesiology 01/15/23 Radha Lopez, [facility] [address] [place] [address] 833085 Pharmacist Pharmacist 01/16/23 Luis A Escobedo MD 420 [facility] 195 [place], [place] 584425 Assigned Surgical Provider 02/07/23 04/15/23 Geri Loza PA-C [address] [place] [address] 631995 Assigned Surgical Provider 04/16/23 Raina Patterson, ASSISTANT PASTRY CHEF GRAPHICS ARTIST [address] [facility] [address] [place] 800715 Nurse Practitioner Cardiovascular Disease 05/11/23 documented as of this encounter
--- OUTSIDE RECORDS SUMMARY | 2024-01-06 09:40 | XMS_ITS | Encounter Summary ---
Author Organization [place] Address [address] [place] [address] 24842 Care Team Providers Care Insurance Follow Up Representative Name Role Phone Roderick Morelos MD Unavailable [phone] Magno Wood MD Unavailable [phone] Sophie Ocasio AuD Unavailable Henny Rosales LAUNDRY MACHINE TENDER SHAPE CARVER Unavailable [phone] Unavailable [phone] Kaykay Duarte SAND BUFFER Primary Care Provider [phone] Christiane Rodríguez MD Unavailable Chely FernandezC Unavailable Jing Cadena LAUNDRY MACHINE TENDER CRIME INVESTIGATOR SPECIAL AGENT Unavailable Radha Lopez [facility] Unavailable Luis A Escobedo MD Unavailable [phone] Geri LozaC Unavailable Raina Patterson LAUNDRY MACHINE TENDER SHAPE CARVER Unavailable [phone] Encounter Details Date Type Department Care Team (Late st Contact Info) Description 01/09/2023 [facility] [address] [place] [address] Radha Dominguez, RN 420 [facility] 195 [place] [address] Social History Tobacco Use Types [...] documented as of this encounter Care Teams Insurance Follow Up Representative Relationship Specialty [place] [address] [address] [place] [address] PCP - General 10/15/22 Roderick Morelos MD [address] [place] [address] Cardiovascular Disease 02/03/22 Magno Wood MD 420 [facility] [address] [place], [place] 359825 Otolaryngology 02/21/22 Sophie Ocasio AuD 909 [facility] [address] [place], [place] 555155 Sterilisation Technician Audiology 02/21/22 Henny Rosales, LAUNDRY MACHINE TENDER SHAPE CARVER [address] [place] [address] Assigned Heart and Vascular Provider 08/09/[address] [place] [address] 362185 Registered Dietitian Dietitian, Registered 09/02/22 Christiane Rodríguez MD 420 [facility] 396 [place], [place] 261635 Otolaryngology 11/12/22 Chely Fernandez PA-C [address] [place] [address] 916895 Assigned Surgical Provider 11/29/22 02/06/23 Jing Cadena LAUNDRY MACHINE TENDER CRIME INVESTIGATOR SPECIAL AGENT [address] [place] [address] 450 [place] [address] Clinical Nurse Specialist Anesthesiology 01/15/23 Radha Lopez, [facility] [address] [place] [address] 114935 Pharmacist Pharmacist 01/16/23 Luis A Escobedo MD 420 [facility] 195 [place], [place] 390285 Assigned Surgical Provider 02/07/23 04/15/23 Geri Loza PA-C [address] [place] [address] 294785 Assigned Surgical Provider 04/16/23 Raina Patterson, LAUNDRY MACHINE TENDER SHAPE CARVER [address] [facility] [address] [place] 930285 Nurse Practitioner Cardiovascular Disease 05/11/23 documented as of this encounter
--- OUTSIDE RECORDS SUMMARY | 2024-01-06 09:40 | XMS_ITS | Encounter Summary ---
Author Organization [place] Address [address] [place] [address] 01624 Care Team Providers Care Electric Trucker Name Role Phone Roderick Morelos MD Unavailable [phone] Magno Wood MD Unavailable [phone] Sophie Ocasio AuD Unavailable Henny Rosales SHOEMAKER CUSTOM STORAGE GARAGE ATTENDANT Unavailable [phone] Unavailable [phone] Kaykay Duarte FISH AND WILDLIFE TECHNICIAN Primary Care Provider Christiane Rodríguez MD Unavailable Chely FernandezC Unavailable [phone] Jing Cadena SHOEMAKER CUSTOM POLICY OFFICER Unavailable Radha Lopez [facility] Unavailable Luis A Escobedo MD Unavailable [phone] Geri LozaC Unavailable [phone] Raina Patterson SHOEMAKER CUSTOM STORAGE GARAGE ATTENDANT Unavailable [phone] Encounter Details Date Type Department Care Team (Late st Contact Info) Description 01/14/2023 [facility] [address] [place] [address] Radha Dominguez, RN 420 [facility] 195 [place] [address] Social History Tobacco Use Types [...] as of this encounter Care Teams Electric Trucker Relationship Specialty [place] [address] [place] [address] PCP - General 10/15/22 Roderick Morelos MD [address] [place] [address] Cardiovascular Disease 02/03/22 Magno Wood MD 420 [facility] 396 [place], [place] 834325 Otolaryngology 02/21/22 Sophie Ocasio AuD 909 [facility] [place], [place] 080815 Application Chemist Audiology 02/21/22 Henny Rosales, SHOEMAKER CUSTOM STORAGE GARAGE ATTENDANT [address] [place] [phone] Assigned Heart and Vascular Provider 08/09/[address] [place] [address] [phone] Registered Dietitian Dietitian, Registered 09/02/22 Christiane Rodríguez MD 420 [facility] 396 [place], [place] 658075 Otolaryngology 11/12/22 Chley Fernandez PA-C [address] [place] [address] 740525 Assigned Surgical Provider 11/29/22 02/06/23 Jing Cadena SHOEMAKER CUSTOM POLICY OFFICER [address] [place] [address] 450 [place] [address] Clinical Nurse Specialist Anesthesiology 01/15/23 Radha Lopez, [facility] [address] [place] [address] 432415 Pharmacist Pharmacist 01/16/23 Luis A Escobedo MD 420 [facility] 195 [place], [place] 995705 Assigned Surgical Provider 02/07/23 04/15/23 Geri Loza PA-C [address] [place] [address] 250625 Assigned Surgical Provider 04/16/23 Raina Patterson, SHOEMAKER CUSTOM STORAGE GARAGE ATTENDANT [address] [facility] [address] [place] 892625 Nurse Practitioner Cardiovascular Disease 05/11/23 documented as of this encounter
--- OUTSIDE RECORDS SUMMARY | 2024-01-06 09:40 | XMS_ITS | Encounter Summary ---
Author Organization [place] Address [address] [place] [address] 79579 Care Team Providers Care Fire Alarm Installer Name Role Phone Roderick Morelos MD Unavailable [phone] Magno Wood MD Unavailable [phone] Sophie Ocasio Unavailable Henny Rosales ANIMAL DAYCARE PROVIDER SWITCHBOARD INSPECTOR Unavailable Sharee Oliva RD Unavailable [phone] Kaykay Duarte SHAREPOINT ADMINISTRATOR Primary Care Provider Christiane Rodríguez MD Unavailable Chely FernandezC Unavailable [phone] Jing Cadena ANIMAL DAYCARE PROVIDER CLOTH FINISHING RANGE OPERATOR CHIEF Unavailable Radha Lopez [facility] Unavailable Luis A Escobedo MD Unavailable [phone] Geri LozaC Unavailable Raina Patterson ANIMAL DAYCARE PROVIDER SWITCHBOARD INSPECTOR Unavailable [phone] Reason for Visit * Reason Onset Date Comments Call Back 01/15/2023 See note. Encounter Details Date Type Department Care Team (Late st Contact Info) Description 01/15/2023 [facility] [address] [facility] SE 4th [place] [phone] Luis A Escobedo MD 420 [facility] 195 [place], [place] 514985 Call Back (See note./) Social History Tobacco [...] Scheduling Registration Pool; Edgar Rothman; Henny Arguello, Billie Garcia Mohsen is having a sleeve gastrectomy conversion [...] questions or updates. Please contact Daisy Huynh, senior clinician, if clinic appt slots are not available. Henny, The patient has been informed that you will contact them about the preop class. Thank you! Summer, RN Radha Dominguez, MS, chief electrician Weight Management Nurse Coordinator MyChart messages to Surgery Clinic Wls Nurses - Contact Center Nurse Line and Clinic [phone] documented in this encounter Plan of Treatment [...] as of this encounter Care Teams Fire Alarm Installer Relationship Specialty Start Date End Date Kaykay Duarte, SHAREPOINT ADMINISTRATOR [address] [place] [address] PCP - General 10/15/22 Roderick Morelos MD [address] [place], [place] 567615 Cardiovascular Disease 02/03/22 Magno Wood MD [address] [place] [address] 484605 Otolaryngology 02/21/22 oSphie Ocasio AuD [address] [place] [address] 875695 Cashier Assistant Audiology 02/21/22 Henny Rosales, ANIMAL DAYCARE PROVIDER SWITCHBOARD INSPECTOR [address] [place] [phone] Assigned Heart and Vascular Provider 08/09/[address] [place] [address] 539345 Registered Dietitian Dietitian, Registered 09/02/22 Christiane Rodríguez MD 420 [facility] 396 [place], [place] 451495 Otolaryngology 11/12/22 Chely Fernandez PA-C 909 [place], [place] 949495 Assigned Surgical Provider 11/29/22 02/06/23 Jing Cadena APRN CLOTH FINISHING RANGE OPERATOR CHIEF 420 [facility] 450 [place], [place] 020195 Clinical Nurse Specialist Anesthesiology 01/15/23 Radha Lopez, [facility] 909 [place], [place] 314475 Pharmacist Pharmacist 01/16/23 Luis A Escobedo MD 420 [facility] 195 [place], [place] 693635 Assigned Surgical Provider 02/07/23 04/15/23 Geri Loza PA-C 909 [place], [place] 193385 Assigned Surgical Provider 04/16/23 Raina Patterson, GINA SWITCHBOARD INSPECTOR [address] [place] 214645 Nurse Practitioner Cardiovascular Disease 05/11/23 documented as of this encounter
--- OUTSIDE RECORDS SUMMARY | 2024-01-06 09:40 | XMS_ITS | Encounter Summary ---
Author Organization [place] Address [address] [place] [address] 16508 Care Team Providers Care Natural Foods Clerk Name Role Phone Roderick Morelos MD Unavailable [phone] Magno Wood MD Unavailable [phone] Sophie Ocasio AuD Unavailable Henny Rosales INFORMATION OFFICER BLOW MOULDING MACHINE OPERATOR Unavailable Sharee Oliva RD Unavailable [phone] Kaykay Duarte DURABLE MEDICAL EQUIPMENT REPAIRER Primary Care Provider Christiane Rodríguez MD Unavailable Chely FernandezC Unavailable [phone] Jing Cadena INFORMATION OFFICER SAMPLE DISTRIBUTOR Unavailable Radha Lopez [facility] Unavailable [phone] Luis A Escobedo MD Unavailable [phone] Geri LozaC Unavailable Raina Patterson INFORMATION OFFICER BLOW MOULDING MACHINE OPERATOR Unavailable Encounter Details Date Type Department Care Team (Late st Contact Info) Description 01/26/2023 Telephone [facility] [address] [place] [address] Geri Loza PA-C 909 [place], [place] 766955 Social History Tobacco Use Types Packs/Day Years [...] 01/26/2023 at 9:59 AM by Tamera Bhardwaj [employer] documented in this encounter Plan of Treatment [...] documented as of this encounter Care Teams Natural Foods Clerk Relationship Specialty Start Date End Date Kaykay Duarte, DURABLE MEDICAL EQUIPMENT REPAIRER [address] [place] [address] PCP - General 10/15/22 Roderick Morelos MD [address] [place] [address] Cardiovascular Disease 02/03/22 Magno Wood MD [address] [place] [address] 85838 Otolaryngology 02/21/22 Sophie Ocasio AuD [address] [place] [address] 390815 Water Resources Program Director Audiology 02/21/22 Henny Rosales APRN BLOW MOULDING MACHINE OPERATOR 6405 [facility] [address] [place] [address] Assigned Heart and Vascular Provider 08/09/[address] [place] [address] 757135 Registered Dietitian Dietitian, Registered 09/02/22 Christiane Rodríguez MD [address] [place] [address] 81500 Otolaryngology 11/12/22 Chely Fernandez PA-C [address] [place] [address] 151415 Assigned Surgical Provider 11/29/22 02/06/23 Jing Cadena APRN SAMPLE DISTRIBUTOR [address] [place] [address] 551335 Clinical Nurse Specialist Anesthesiology 01/15/23 Radha Lopez, [facility] [address] [place] [address] 18507 Pharmacist Pharmacist 01/16/23 Luis A Escobedo MD [address] [place] [address] 195 [place] [address] Assigned Surgical Provider 02/07/23 04/15/23 Geri Loza PA-C [address] [place] [address] 70718 Assigned Surgical Provider 04/16/23 Raina Patterson APRN [facility] [address] [place] [address] Nurse Practitioner Cardiovascular Disease 05/11/23 documented as of this encounter
--- OUTSIDE RECORDS SUMMARY | 2024-01-06 09:40 | XMS_ITS | Encounter Summary ---
Author Organization [place] Address [address] [place] [address] 09507 Care Team Providers Care Ms Access Database Developer Name Role Phone Roderick Morelos MD Unavailable [phone] Magno Wood MD Unavailable [phone] Sophie Ocasio AuD Unavailable Henny Rosales QUARANTINE INSPECTOR NICKING MACHINE OPERATOR Unavailable Sharee [address] Unavailable [phone] Kaykay Duarte SCUBA DIVER Primary Care Provider [phone] Christiane Rodríguez MD Unavailable Chely FernandezC Unavailable [phone] Jing Cadena QUARANTINE INSPECTOR TITLE INVESTIGATOR Unavailable Radha Lopez [facility] Unavailable Luis A Escobedo MD Unavailable [phone] Geri LozaC Unavailable Raina Patterson QUARANTINE INSPECTOR NICKING MACHINE OPERATOR Unavailable Encounter Details Date Type Department Care Team (Late st Contact Info) Description 01/12/2023 [facility] Medical Advice Initial Department Kang Griffiths [...] documented as of this encounter Care Teams Ms Access Database Developer Relationship Specialty Start Date End Date Kaykay Duarte SCUBA DIVER [address] [place] [address] PCP - General 10/15/22 Roderick Morelos MD [address] [place] [address] Cardiovascular Disease 02/03/22 Magno Wood MD 420 [facility] 396 [place], [place] 483615 Otolaryngology 02/21/22 Sophie Ocasio AuD 909 [place], [place] 708385 Control Operator Flow Coat Audiology 02/21/22 Henny Rosales APRN NICKING MACHINE OPERATOR [address] [place] [phone] Assigned Heart and Vascular Provider 08/09/[address] 909 [place], [place] 221845 Registered Dietitian Dietitian, Registered 09/02/22 Christiane Rodríguez MD 420 [facility] 396 [place], [place] 153905 Otolaryngology 11/12/22 Chely Fernandez PA-C [address] [place] [address] 333955 Assigned Surgical Provider 11/29/22 02/06/23 Jing Cadena APRN TITLE INVESTIGATOR 420 [facility] 450 [place], [place] 756295 Clinical Nurse Specialist Anesthesiology 01/15/23 Radha Lopez, [facility] [address] [place] [address] 836515 Pharmacist Pharmacist 01/16/23 Luis A Escobedo MD 420 [facility] 195 [place], [place] 180255 Assigned Surgical Provider 02/07/23 04/15/23 Geri Loza PA-C [address] [place] [address] 294235 Assigned Surgical Provider 04/16/23 Raina Patterson APRN NICKING MACHINE OPERATOR [address] [place] 981235 Nurse Practitioner Cardiovascular Disease 05/11/23 documented as of this encounter
--- OUTSIDE RECORDS SUMMARY | 2024-01-06 09:40 | XMS_ITS | Encounter Summary ---
Author Organization [place] Address [address] [place] [address] 23283 Care Team Providers Care Eyeglass Frame Truer Name Role Phone Roderick Morelos MD Unavailable [phone] Magno Wood MD Unavailable [phone] Sophie Ocasio AuD Unavailable [phone] Henny Rosales SURVEY RESEARCHER FLORAL DECORATOR Unavailable [phone] Unavailable [phone] Kaykay Duarte ASSISTED LIVING COORDINATOR Primary Care Provider Christiane Rodríguez MD Unavailable Chely FernandezC Unavailable Jing Cadena SURVEY RESEARCHER GRADING MACHINE FEEDER Unavailable Radha Lopez [facility] Unavailable Luis A Escobedo MD Unavailable [phone] Geri LozaC Unavailable Raina Patterson SURVEY RESEARCHER FLORAL DECORATOR Unavailable Encounter Details Date Type Department Care Team (Late st Contact Info) Description 01/15/2023 [facility] [address]th [place] [address] Geri Loza PA-C 909 [place], [place] 548735 Social History Tobacco Use Types Packs/Day Years [...] Lopez, PharmD, BCACP Medication Therapy Management Pharmacist [facility] * Telephone Encounter [...] documented as of this encounter Care Teams Eyeglass Frame Truer Relationship Specialty [place] [address] [place] [address] PCP - General 10/15/22 Roderick Morelos MD [address] [place] [address] Cardiovascular Disease 02/03/22 Magno Wood MD [address] [place] [address] 036705 Otolaryngology 02/21/22 Sophie Ocasio AuD [address] [place] [address] 708065 Ed Special Education Teacher Audiology 02/21/22 Henny Rosales APRN FLORAL DECORATOR [address] [place] [address] Assigned Heart and Vascular Provider 08/09/[address] [place] [address] 089705 Registered Dietitian Dietitian, Registered 09/02/22 Christiane Rodríguez MD [address] [place] [address] 863335 Otolaryngology 11/12/22 Chely Fernandez PA-C [address] [place] [address] 00089 Assigned Surgical Provider 11/29/22 02/06/23 Jing Cadena APRN GRADING MACHINE FEEDER 420 [facility] 450 [place] [address] Clinical Nurse Specialist Anesthesiology 01/15/23 Radha Lopez, [facility] 909 [place] [address] Pharmacist Pharmacist 01/16/23 Luis A Escobedo MD 420 [facility] 195 [place], [place] 518295 Assigned Surgical Provider 02/07/23 04/15/23 Geri Loza PA-C [address] [place] [address] 26666 Assigned Surgical Provider 04/16/23 Raina Patterson APRN FLORAL DECORATOR [address] [place] 863285 Nurse Practitioner Cardiovascular Disease 05/11/23 documented as of this encounter
--- OUTSIDE RECORDS SUMMARY | 2024-01-06 09:40 | XMS_ITS | Encounter Summary ---
Author Organization [place] Address [address] [place] [address] 9[address]60 Care Team Providers Care Mat Cutter Name Role Phone Roderick Morelos MD Unavailable [phone] Magno Wood MD Unavailable [phone] Sophie Ocasio AuD Unavailable Henny Rosales LICENSED PRACTICAL NURSE CLINIC NURSE CHECK WRITER Unavailable [phone] Unavailable [phone] Kaykay Duarte ENGINEERING PROFESSIONALS Primary Care Provider Christiane Rodríguez MD Unavailable Chely FernandezC Unavailable [phone] Jing Cadena LICENSED PRACTICAL NURSE CLINIC NURSE PAINTER INTERIOR FINISH Unavailable Radha Lopez [facility] Unavailable Luis A Escobedo MD Unavailable [phone] Geri LozaC Unavailable Raina Patterson LICENSED PRACTICAL NURSE CLINIC NURSE CHECK WRITER Unavailable [phone] Encounter Details Date Type Department Care Team (Late st Contact Info) Description 12/04/2022 [facility] Weight Management Clinic [address] [place] [phone] Kang Griffiths Social History Tobacco Use Types [...] documented as of this encounter Care Teams Mat Cutter Relationship Specialty [place] [address] [place] [address] PCP - General 10/15/22 Roderick Morelos MD [address] [place] [address] Cardiovascular Disease 02/03/22 Magno Wood MD 420 [facility] 396 [place], [place] 805335 Otolaryngology 02/21/22 Sophie Ocasio AuD 909 [place], [place] 822165 Steam Press Tender Audiology 02/21/22 Henny Rosales, LICENSED PRACTICAL NURSE CLINIC NURSE CHECK WRITER [address] [place] [phone] Assigned Heart and Vascular Provider 08/09/[address] [place] [address] 928335 Registered Dietitian Dietitian, Registered 09/02/22 Christiane Rodríguez MD [address] [place] [address] 396 [place], [place] 320385 Otolaryngology 11/12/22 Chely Fernandez PA-C [address] [place] [address] 378615 Assigned Surgical Provider 11/29/22 02/06/23 Jing Cadena APRN PAINTER INTERIOR FINISH [address] [place] [address] 450 [place] [address] Clinical Nurse Specialist Anesthesiology 01/15/23 Radha Lopez, [facility] [address] [place] [address] 007285 Pharmacist Pharmacist 01/16/23 Luis A Escobedo MD 420 [facility] 195 [place], [place] 164955 Assigned Surgical Provider 02/07/23 04/15/23 Geri Loza PA-C [address] [place] [address] 793675 Assigned Surgical Provider 04/16/23 Raina Patterson, LICENSED PRACTICAL NURSE CLINIC NURSE CHECK WRITER [address] [place] 029425 Nurse Practitioner Cardiovascular Disease 05/11/23 documented as of this encounter
--- OUTSIDE RECORDS SUMMARY | 2024-01-06 09:40 | XMS_ITS | Encounter Summary ---
Author Organization [place] Address [address] [place] [address] 34514 Care Team Providers Care Video Recorder Mechanic Name Role Phone Roderick Morelos MD Unavailable [phone] Magno Wood MD Unavailable [phone] Sophie Ocasio AuD Unavailable Henny Rosales VOCATIONAL SERVICES SPECIALIST MANUFACTURING MAINTENANCE MANAGER Unavailable Sharee [address]iva RD Unavailable [phone] Kaykay Duarte SALE PROFESSIONAL DIGITAL MARKETING Primary Care Provider Christiane Rodríguez MD Unavailable [phone] Chely FernandezC Unavailable [phone] Jing Cadena VOCATIONAL SERVICES SPECIALIST DIRECTOR INSTITUTION Unavailable [phone] Radha Lopez [facility] Unavailable Luis A Escobedo MD Unavailable [phone] Geri LozaC Unavailable Raina Patterson VOCATIONAL SERVICES SPECIALIST MANUFACTURING MAINTENANCE MANAGER Unavailable [phone] Encounter Details Date Type Department Care Team (Late st Contact Info) Description 01/14/2023 [facility] Weight Management Clinic [address] [place] [address] Radha Dominguez, RN 420 [facility] 195 [place] [address] Social History Tobacco Use Types [...] as of this encounter Care Teams Video Recorder Mechanic Relationship Specialty [place] [address] [place] [address] PCP - General 10/15/22 Roderick Morelos MD [address] [place] [address] Cardiovascular Disease 02/03/22 Magno Wodo MD 420 [facility] 396 [place], [place] 807735 Otolaryngology 02/21/22 Sophie Ocasio AuD 909 [facility] [place], [place] 608115 Director News Audiology 02/21/22 Henny Rosales, VOCATIONAL SERVICES SPECIALIST MANUFACTURING MAINTENANCE MANAGER [address] [place] [address] Assigned Heart and Vascular Provider 08/09/[address] [place] [address] 924295 Registered Dietitian Dietitian, Registered 09/02/22 Christiane Rodríguez MD 420 [facility] 396 [place], [place] 524565 Otolaryngology 11/12/22 Chely Fernandez PA-C [address] [place] [address] 567895 Assigned Surgical Provider 11/29/22 02/06/23 Jing Cadena VOCATIONAL SERVICES SPECIALIST DIRECTOR INSTITUTION [address] [place] [address] 450 [place] [address] Clinical Nurse Specialist Anesthesiology 01/15/23 Radha Lopez, [facility] [address] [place] [address] 606755 Pharmacist Pharmacist 01/16/23 Luis A Escobedo MD 420 [facility] 195 [place], [place] 782505 Assigned Surgical Provider 02/07/23 04/15/23 Geri Loza PA-C [address] [place] [address] 933455 Assigned Surgical Provider 04/16/23 Raina Patterson, VOCATIONAL SERVICES SPECIALIST MANUFACTURING MAINTENANCE MANAGER [address] [facility] [address] [place] 375615 Nurse Practitioner Cardiovascular Disease 05/11/23 documented as of this encounter
--- OUTSIDE RECORDS SUMMARY | 2024-01-06 09:41 | XMS_ITS | Encounter Summary ---
Author Organization [place] Address [address] [place] [address] Care Team Providers Care Promotions Firm Accounts Manager Name Role Phone Roderick Morelos MD Unavailable [phone] Magno Wood MD Unavailable [phone] Sophie Ocasio Unavailable +[phone] Henny Rosales PRINCIPAL IOS DEVELOPER SACK REPAIRER Unavailable +[phone] [facility] Primary Care Pr ovider Sharee Oliva RD Unavailable [phone] Kaykay Duarte FOUNDER Primary Care Provider [phone] Christiane Rodríguez MD Unavailable [phone] Luis A Escobedo MD Unavailable +[phone] Chely Fernandez PA-C Unavailable +[phone] Jing Cadena APRN SENIOR MARKETING ENGINEER Unavailable + [phone] Radha Lopez [facility] Unavailable +[phone] Luis A Escobedo MD Unavailable +[phone] Geri LozaC Unavailable [phone] Raina Patterson PRINCIPAL IOS DEVELOPER SACK REPAIRER Unavailable +[phone] Encounter Details Date Type Department Care Team (Late st Contact Info) Description 09/02/2022 MyC Medical Advice [facility] [place] [address] [place] [address] 4th [place] [address] Geri Loza PA-C 909 [place] [address] Social History Tobacco Use Types Packs/Day Years [...] on filedocumented in this encounter Care Teams Promotions Firm Accounts Manager Relationship Specialty Start [place] [address] [place] [address] PCP - General 08/19/22 10/14/22 Kaykay Duarte NP [address] [place] [address] [address] [place] [id number] PCP - General 10/15/22 Roderick Morelos MD [address] [place], [place] 348495 Cardiovascular Disease 02/03/22 Magno Wood MD [address] [place] [address] 396 [place], [place] 716005 Otolaryngology 02/21/22 Sophie Ocasio AuD [address] [place] [address] 757685 Inside Upholsterer Audiology 02/21/22 Henny Rosales APRN SACK REPAIRER [address] [place] [address] Assigned Heart and Vascular Provider 08/09/[address] [place] [address] Registered Dietitian Dietitian, Registered 09/02/22 Christiane Rodríguez MD [address] [place] [address] 396 [place] [address] Otolaryngology 11/12/22 Luis A Escobedo MD [address] [place] [address] 195 [place] [address] Assigned Surgical Provider 11/01/22 11/28/22 Chely Fernandez PA-C [address] [place] [address] 940165 Assigned Surgical Provider 11/29/22 02/06/23 Jing Cadena APRN SENIOR MARKETING ENGINEER [address] [place] [address] 450 [place] [address] Clinical Nurse Specialist Anesthesiology 01/15/23 Radha Lopez, [facility] [address] [place] [address] Pharmacist Pharmacist 01/16/23 Luis A Escobedo MD 420 [facility] 195 [place], [place] 774525 Assigned Surgical Provider 02/07/23 04/15/23 Geri Loza PA-C 909 [place], [place] 502765 Assigned Surgical Provider 04/16/23 Raina Patterson APRN SACK REPAIRER [address] [place], [place] 210355 Nurse Practitioner Cardiovascular Disease 05/11/23 documented as of this encounter
--- OUTSIDE RECORDS SUMMARY | 2024-01-06 09:41 | XMS_ITS | Encounter Summary ---
Author Organization [place] Address [address] [place] [address] Care Team Providers Care Spanish Lecturer Name Role Phone Roderick Morelos MD Unavailable [phone] Magno Wood MD Unavailable [phone] Sophie Ocasio Unavailable +[phone] Henny Rosales VEST BACKER PROPOSAL WRITER Unavailable +[phone] [facility] Primary Care Pr ovider Sharee Oliva RD Unavailable [phone] Kaykay Duarte PIGMENT PUSHER Primary Care Provider [phone] Christiane Rodríguez MD Unavailable +[phone] Luis A Escobedo MD Unavailable +[phone] Chely Fernandez PA-C Unavailable +[phone] Jing Cadena APRN PRODUCTION OPERATIONS MANAGER Unavailable + [phone] Radha Lopez [facility] Unavailable +- [phone] Luis A Escobedo MD Unavailable +[phone] Geri LozaC Unavailable [phone] Raina Patterson VEST BACKER PROPOSAL WRITER Unavailable +[phone] Encounter Details Date Type Department Care Team (Late st Contact Info) Description 09/02/2022 MyC Medical Advice [facility] [place] [address] [place] [address] 4th [place] [address] Geri Loza PA-C 909 [place] [address] Social History Tobacco Use Types Packs/Day Years [...] on filedocumented in this encounter Care Teams Spanish Lecturer Relationship Specialty Start [place] [address] [place] [address] PCP - General 08/19/22 10/14/22 Kaykay Duarte NP [address] [place] [address] [place] [id number] PCP - General 10/15/22 Roderick Morelos MD [address] [place], [place] 797975 Cardiovascular Disease 02/03/22 Magno Wood MD [address] [place] [address] 396 [place], [place] 430975 Otolaryngology 02/21/22 Sophie Ocasio AuD [address] [place] [address] 352535 Office Manager Executive Assistant Audiology 02/21/22 Henny Rosales APRN PROPOSAL WRITER [address] [place] [address] Assigned Heart and Vascular Provider 08/09/[address] [place] [address] Registered Dietitian Dietitian, Registered 09/02/22 Christiane Rodríguez MD [address] [place] [address] 396 [place] [address] Otolaryngology 11/12/22 Luis A Escobedo MD [address] [place] [address] 195 [place] [address] Assigned Surgical Provider 11/01/22 11/28/22 Chely Fernandez PA-C [address] [place] [address] 800825 Assigned Surgical Provider 11/29/22 02/06/23 Jing Cadena APRN PRODUCTION OPERATIONS MANAGER [address] [place] [address] 450 [place] [address] Clinical Nurse Specialist Anesthesiology 01/15/23 Radha Lopez, [facility] [address] [place] [address] Pharmacist Pharmacist 01/16/23 Luis A Escobdeo MD 420 [facility] 195 [place], [place] 924395 Assigned Surgical Provider 02/07/23 04/15/23 Geri Loza PA-C 909 [place], [place] 894375 Assigned Surgical Provider 04/16/23 Raina Patterson APRN PROPOSAL WRITER [address] [place], [place] 832665 Nurse Practitioner Cardiovascular Disease 05/11/23 documented as of this encounter
--- OUTSIDE RECORDS SUMMARY | 2024-01-06 09:41 | XMS_ITS | Encounter Summary ---
Author Organization [place] Address [address] [place] [address] Care Team Providers Care Steel Rule Inspector Name Role Phone Roderick Morelos MD Unavailable [phone] Magno Wood MD Unavailable [phone] Sophie Ocasio Unavailable [phone] Henny Rosales SECURITY OPERATIONS ANALYST CHIP PERSON Unavailable Sharee Oliva RD Unavailable [phone] Kaykay Duarte MELLOWING MACHINE OPERATOR Primary Care Provider [phone] Christiane Rodríguez MD Unavailable Luis A Escobedo MD Unavailable +[phone] Chely Fernandez-C Unavailable +[phone] Jing Cadena APRN THREAD WINDER AUTOMATIC Unavailable +[phone] Radha Lopez [facility] Unavailable +[phone] Luis A Escobedo MD Unavailable +[phone] Geri LozaC Unavailable +[phone] Raina Patterson APRN CHIP PERSON Unavailable +[phone] Encounter Details Date Type Department Care Team (Late st Contact Info) Description 11/03/2022 [facility] [place] 909 [facility] 4th [place] [address] Kang Griffiths Social History Tobacco [...] documented as of this encounter Care Teams Steel Rule Inspector Relationship Specialty [place] [address] [place] [address] PCP - General 10/15/22 Roderick Morelos MD [address] [place] [address] Cardiovascular Disease 02/03/22 Magno Wood MD [address] [place] [address] 396 [place], [place] 486365 Otolaryngology 02/21/22 Sophie Ocasio, AuD [address] [place] [address] 266725 Scaffold Worker Audiology 02/21/22 Henny Rosales APRN CHIP PERSON [address] [place] [address] Assigned Heart and Vascular Provider 08/09/[address] [place] [address] Registered Dietitian Dietitian, Registered 09/02/22 Christiane Rodríguez MD [address] [place] [address] 396 [place], [place] 714935 Otolaryngology 11/12/22 Luis A Escobedo MD [address] [place] [address] 195 [place], [place] 676435 Assigned Surgical Provider 11/01/22 11/28/22 Chely Fernandez PA-C [address] [place] [address] 703845 Assigned Surgical Provider 11/29/22 02/06/23 Jing Cadena SECURITY OPERATIONS ANALYST THREAD WINDER AUTOMATIC 420 [facility] 450 [place], [place] 403145 Clinical Nurse Specialist Anesthesiology 01/15/23 Radha Lopez [facility] [address] [place] [address] 803975 Pharmacist Pharmacist 01/16/23 Luis A Escobedo MD [address] [place] [address] 195 [place], [place] 797335 Assigned Surgical Provider 02/07/23 04/15/23 Geri Loza PA-C 9 [place], [place] 596465 Assigned Surgical Provider 04/16/23 Riana Patterson APRN CNP [address] [place] [address] Nurse Practitioner Cardiovascular Disease 05/11/23 documented as of this encounter
--- OUTSIDE RECORDS SUMMARY | 2024-01-06 09:41 | XMS_ITS | Encounter Summary ---
Author Organization [place] Address [address] [place] [address] Care Team Providers Care Ornamental Rail Installer Name Role Phone Roderick Morelos MD Unavailable [phone] Magno Wood MD Unavailable [phone] Sophie Ocasio AuD Unavailable [phone] Henny Rosales TELEPHONE SUPERVISOR ARCHITECTURAL MODELER Unavailable Sharee Oliva [address] Unavailable [phone] Kaykay Duarte PLASTIC SURGEON Primary Care Provider [phone] Christiane Rodríguez MD Unavailable Luis A Escobedo MD Unavailable +[phone] Chely Fernandez-C Unavailable [phone] Jing Cadena APRN FOOD AND DRUG RESEARCH SCIENTIST Unavailable Radha Lopez [facility] Unavailable [phone] Luis A Escobedo MD Unavailable +[phone] Geri LozaC Unavailable [phone] Raina Patterson TELEPHONE SUPERVISOR ARCHITECTURAL MODELER Unavailable [phone] Encounter Details Date Type Department Care Team (Late st Contact Info) Description 10/16/2022 MyC Medical Advice Initial Department [facility] [place] Social History Tobacco Use Types Packs/Day Years [...] documented as of this encounter Care Teams Ornamental Rail Installer Relationship Specialty Start Date End Date Kaykay Duarte, PLASTIC SURGEON [address] [place] [address] [place] [id number] PCP - General 10/15/22 Roderick Morelos MD [address] [place], [place] 588245 Cardiovascular Disease 02/03/22 Magno Wood MD 420 [facility] 396 [place], [place] 397855 Otolaryngology 02/21/22 Sophie Ocasio AuD 909 [place], [place] 937335 Special Warfare Boat Operator Audiology 02/21/22 Henny Rosales APRN ARCHITECTURAL MODELER [address] [place] [id number] Assigned Heart and Vascular Provider 08/09/[address] 909 [place], [place] 458055 Registered Dietitian Dietitian, Registered 09/02/22 Christiane Rodríguez MD 420 [facility] 396 [place], [place] 479485 Otolaryngology 11/12/22 Luis A Escobedo MD [address] [place] [address] 195 [place] [address] Assigned Surgical Provider 11/01/22 11/28/22 Chely Fernandez PA-C [address] [place] [address] 512075 Assigned Surgical Provider 11/29/22 02/06/23 Jing Cadena, TELEPHONE SUPERVISOR FOOD AND DRUG RESEARCH SCIENTIST 420 [facility] 450 [place], [place] 045125 Clinical Nurse Specialist Anesthesiology 01/15/23 Radha Lopez, [facility] 9 [place], [place] 239105 Pharmacist Pharmacist 01/16/23 Luis A Escobedo MD 420 [facility] 195 [place], [place] 575955 Assigned Surgical Provider 02/07/23 04/15/23 Geri Loza PA-C 9 [place] [address] Assigned Surgical Provider 04/16/23 Raina Patterson APRN ARCHITECTURAL MODELER [address] [place] [address] Nurse Practitioner Cardiovascular Disease 05/11/23 documented as of this encounter
--- OUTSIDE RECORDS SUMMARY | 2024-01-06 09:41 | XMS_ITS | Encounter Summary ---
Author Organization [place] Address [address] [place] [address] Care Team Providers Care Product Control And Logistics Analyst Name Role Phone Roderick Morelos MD Unavailable [phone] Magno Wood MD Unavailable Sophie Ocasio Unavailable +[phone] Henny Rosales MINE MANAGER HACK SAW OPERATOR Unavailable [phone] [facility] Primary Care Pr ovider Sharee Oliva RD Unavailable [phone] Kaykay Duarte TECHNICAL IMPLEMENTATION LEAD Primary Care Provider [phone] Christiane Rodríguez MD Unavailable [phone] Luis A Escobedo MD Unavailable +[phone] Chely Fernandez PA-C Unavailable +[phone] Jing Cadena MINE MANAGER MANAGER ENGAGEMENT Unavailable + [phone] Radha Lopez [facility] Unavailable +[phone] Luis A Escobedo MD Unavailable +[phone] Geri Loza PA-C Unavailable +[phone] Raina Patterson MINE MANAGER HACK SAW OPERATOR Unavailable +[phone] Reason for Visit * Reason Onset Date Comments Prior Auth - Medication 09/03/2022 Orlistat -PA DENIED Encounter Details Date Type Department Care Team (Late st Contact Info) Description 09/03/2022 Telephone [facility] [address] [place] [address] Geri Loza PA-C 909 [place], [place] 760735 Prior Auth - Medication (Orlistat-PA DENIED ) [...] Team PA Initiation Medication: Orlistat Insurance Company: [employer] - Pharmacy Filling the Rx: [id number] - [place], [place] - [id number] [place] Filling Pharmacy Filling Pharmacy Fax: Start Date: [...] ?? Gastric sleeve was completed 08/09/[address] [facility] [address] Barillas. Starting weight 338lb, BMI 56.25. She felt that instantly did not see expected weight loss results. Per chart review had lost 8lbsby 3 months post op and has followed up with [facility] since. She has lost 38lbs since surgery, andhas been able maintain weight loss of 305lbs for many years. However, continues to feel that is inadequet weight loss and wanted to discuss a conversion to RYGB today. Insurance Name: Insurance ID: Pharmacy Information (if different than what is on RX) Name: [id number] - [place] - [id number] [place] * Telephone Encounter - Rowena Small - 09/03/2022 8:44 AM CDT Reason for Call: Prior Auth Detailed comments: Pt states [facility] said a PA is required [...] on filedocumented in this encounter Care Teams Product Control And Logistics Analyst Relationship Specialty Start Date End Date Clinic, [place] [address] [place] [address] PCP - General 08/19/22 10/14/22 Kaykay Duarte, TECHNICAL IMPLEMENTATION LEAD [address] [place] [address] PCP - General 10/15/22 Roderick Morelos MD [address] [place] [address] Cardiovascular Disease 02/03/22 Magno Wood MD [address] [place] [address] 396 [place], [place] 784075 Otolaryngology 02/21/22 Sophie Ocasio AuD [address] [place] [address] 725365 Junior Sales Representative Audiology 02/21/22 Henny Rosales APRN HACK SAW OPERATOR [address] [place] [address] Assigned Heart and Vascular Provider 08/09/[address] [place] [address] 067255 Registered Dietitian Dietitian, Registered 09/02/22 Christiane Rodríguez MD 420 [facility] 396 [place], [place] 020605 Otolaryngology 11/12/22 Luis A Escobedo MD 420 [facility] 195 [place], [place] 600415 Assigned Surgical Provider 11/01/22 11/28/22 Chely Fernandez PA-C [address] [place] [address] 036115 Assigned Surgical Provider 11/29/22 02/06/23 Jing Cadena APRN MANAGER ENGAGEMENT 420 [facility] 450 [place], [place] 757775 Clinical Nurse Specialist Anesthesiology 01/15/23 JessicaRadha, [facility] [address] [place] [address] 023615 Pharmacist Pharmacist 01/16/23 Luis A Escobedo MD 420 [facility] 195 [place], [place] 438145 Assigned Surgical Provider 02/07/23 04/15/23 Geri Loza PA-C 909 [place], [place] 920325 Assigned Surgical Provider 04/16/23 Raina Patterson, GINA HACK SAW OPERATOR [address] [place], [place] 949465 Nurse Practitioner Cardiovascular Disease 05/11/23 documented as of this encounter
--- OUTSIDE RECORDS SUMMARY | 2024-01-06 09:41 | XMS_ITS | Encounter Summary ---
Author Organization [place] Address [address] [place] [address]60 Care Team Providers Care Staffing Administrator Name Role Phone Roderick Morelos MD Unavailable [phone] Magno Wood MD Unavailable [phone] Sophie Ocasio Unavailable [phone] Henny Rosales GIS DATABASE ADMINISTRATOR BLENDER Unavailable [phone] [facility] Primary Care Pr ovider Sharee Oliva RD Unavailable [phone] Kaykay Duarte PERSONAL LINES ACCOUNT MANAGER Primary Care Provider [phone] Christiane Rodríguez MD Unavailable [phone] Luis A Escobedo MD Unavailable +[phone] Chely Fernandez PA-C Unavailable [phone] Jing Cadena APRN CARTON FILLING MACHINE OPERATOR Unavailable + [phone] Radha Lopez [facility] Unavailable +[phone] Luis A Escobedo MD Unavailable +[phone] Geri LozaC Unavailable [phone] Raina Patterson GIS DATABASE ADMINISTRATOR BLENDER Unavailable [phone] Encounter Details Date Type Department Care Team (Late st Contact Info) Description 09/29/2022 [facility] [address] [place] [address] Kang Griffiths Social History Tobacco [...] on filedocumented in this encounter Care Teams Staffing Administrator Relationship Specialty Start Date End Date Clinic, [place] [place] [address] [place] [address] PCP - General 08/19/22 10/14/22 Kaykay Duarte, PERSONAL LINES ACCOUNT MANAGER [address] [place] [address] [place] [address] PCP - General 10/15/22 Roderick Morelos MD [address] [place] [address] Cardiovascular Disease 02/03/22 Magno Wood MD [address] [place] [address] 339215 Otolaryngology 02/21/22 Sophie Ocasio AuD [address] [place] [address] 968175 Turn Out Worker Audiology 02/21/22 Henny Rosales, GIS DATABASE ADMINISTRATOR BLENDER [address] [place] [address] Assigned Heart and Vascular Provider 08/09/[address] 9 [place], [place] 602545 Registered Dietitian Dietitian, Registered 09/02/22 Christiane Rodríguez MD 420 [facility] 396 [place], [place] 252435 Otolaryngology 11/12/22 Luis A Escobedo MD [address] [place] [address] 110485 Assigned Surgical Provider 11/01/22 11/28/22 Chely Fernandez PA-C [address] [place] [address] 412245 Assigned Surgical Provider 11/29/22 02/06/23 Jing Cadena, GIS DATABASE ADMINISTRATOR CARTON FILLING MACHINE OPERATOR [address] [place] [address] 450 [place], [place] 528275 Clinical Nurse Specialist Anesthesiology 01/15/23 Radha Lopez, [facility] [address] [place] [address] 922635 Pharmacist Pharmacist 01/16/23 Luis A Escobedo MD [address] [place] [address] 195 [place], [place] 357165 Assigned Surgical Provider 02/07/23 04/15/23 Geri Loza PA-C 909 [place] [address] Assigned Surgical Provider 04/16/23 Raina Patterson APRN BLENDER [address] [place] [address] Nurse Practitioner Cardiovascular Disease 05/11/23 documented as of this encounter
--- OUTSIDE RECORDS SUMMARY | 2024-01-06 09:41 | XMS_ITS | Encounter Summary ---
Author Organization [place] Address [address] [place] [address] Care Team Providers Care Red Hat Linux Engineer Name Role Phone Roderick Morelos MD Unavailable [phone] Magno Wood MD Unavailable [phone] Sophie Ocasio Unavailable [phone] Henny Rosales TAX COMPLIANCE AGENT BEEF CATTLE FARMER Unavailable [phone] [facility] Primary Care Pr ovider Sharee Oliva RD Unavailable [phone] Kaykay Duarte INTERNAL CARVER Primary Care Provider [phone] Christiane Rodríguez MD Unavailable [phone] Luis A Escobedo MD Unavailable +[phone] Chely Fernandez PA-C Unavailable +[phone] Jing Cadena APRN MANAGER GROCERY Unavailable + [phone] Radha Lopez [facility] Unavailable +[phone] Luis A Escobedo MD Unavailable +[phone] Geri LozaC Unavailable [phone] Raina Patterson TAX COMPLIANCE AGENT BEEF CATTLE FARMER Unavailable [phone] Encounter Details Date Type Department Care Team (Late st Contact Info) Description 09/15/2022 [facility]ology [facility] [place] [id number] [facility] 4th [place] [address] Kang Griffiths Social History Tobacco [...] on filedocumented in this encounter Care Teams Red Hat Linux Engineer Relationship Specialty Start Date End Date [place] [address] [place] [address] PCP - General 08/19/22 10/14/22 Kaykay Duarte, INTERNAL CARVER [address] [place] [address] PCP - General 10/15/22 Roderick Morelos MD [address] [place] [address] Cardiovascular Disease 02/03/22 Magno Wood MD [address] [place] [address] 135795 Otolaryngology 02/21/22 Sophie Ocasio AuD [address] [place] [address] 537475 Energy Trader Audiology 02/21/22 Henny Rosales, TAX COMPLIANCE AGENT BEEF CATTLE FARMER [address] [place] [address] Assigned Heart and Vascular Provider 08/09/[address]09 [place], [place] 343115 Registered Dietitian Dietitian, Registered 09/02/22 Christiane Rodríguez MD 420 [facility] 396 [place], [place] 725115 Otolaryngology 11/12/22 Luis A Escobedo MD [address] [place] [address] 195 [place], [place] 593675 Assigned Surgical Provider 11/01/22 11/28/22 Chely Fernandez PA-C [address] [place] [address] 094735 Assigned Surgical Provider 11/29/22 02/06/23 Jing Cadena, TAX COMPLIANCE AGENT MANAGER GROCERY 420 [facility] 450 [place], [place] 236295 Clinical Nurse Specialist Anesthesiology 01/15/23 Radha Lopez, [facility] [address] [place] [address] 305895 Pharmacist Pharmacist 01/16/23 Luis A Escobedo MD [address] [place] [address] 195 [place], [place] 452765 Assigned Surgical Provider 02/07/23 04/15/23 Geri Loza PA-C 909 [place] [address] Assigned Surgical Provider 04/16/23 Raina Patterson APRN BEEF CATTLE FARMER [address] [place] [address] Nurse Practitioner Cardiovascular Disease 05/11/23 documented as of this encounter
--- OUTSIDE RECORDS SUMMARY | 2024-01-06 09:41 | XMS_ITS | Encounter Summary ---
Author Organization [place] Address [address] [place] [address] Care Team Providers Care Boil Off Machine Operator Cloth Name Role Phone Roderick Morelos MD Unavailable [phone] Magno Wood MD Unavailable [phone] Sophie Ocasio Unavailable [phone] Henny Rosales HAZARDOUS WASTE MATERIAL TECHNICIAN BISTRO SERVER Unavailable Sharee Oliva RD Unavailable [phone] Kaykay Duarte MATRIX BATH ATTENDANT Primary Care Provider [phone] Christiane Rodríguez MD Unavailable Luis A Escobedo MD Unavailable [phone] Chely FernandezC Unavailable Jing Cadena APRN STAPLE LASTER Unavailable Radha Lopez [facility] Unavailable [phone] Luis A Escobedo MD Unavailable [phone] Geri LozaC Unavailable [phone] Raina Patterson APRN BISTRO SERVER Unavailable [phone] Encounter Details Date Type Department Care Team (Late st Contact Info) Description 10/23/2022 External Order Results [facility] [address] [place] [address] Outside, Provider Class 3 severe obesity with [...] documented in this encounter Additional Health Concerns Active Problems Noted Date Diagnosed Date BRIAN PATHWAY SURGERY IS SCHEDULED 10/15/2022 documented as of this encounter Care Teams Boil Off Machine Operator Cloth Relationship Specialty [place] [address] [place] [address] [place] 0[address]647 PCP - General 10/15/22 Roderick Morelos MD [address] [place] 880505 Cardiovascular Disease 02/03/22 Magno Wood MD [address] 928525 Otolaryngology 02/21/22 Sophie Ocasio AuD 909 [place], [place] 516205 Environmental Health Technician Audiology 02/21/22 Henny Rosales APRN BISTRO SERVER [address] [place] [phone] Assigned Heart and Vascular Provider 08/09/[address] [place] [address] 004275 Registered Dietitian Dietitian, Registered 09/02/22 Christiane Rodríguez MD [address] [place] [address] 396 [place], [place] 202945 Otolaryngology 11/12/22 Luis A Escobedo MD [address] [place] [address] 197165 Assigned Surgical Provider 11/01/22 11/28/22 Chely Fernandez PA-C [address] [place] [address] 127455 Assigned Surgical Provider 11/29/22 02/06/23 Jing Cadena, HAZARDOUS WASTE MATERIAL TECHNICIAN STAPLE LASTER [address] [place] [address] 187725 Clinical Nurse Specialist Anesthesiology 01/15/23 Radha Lopez, [facility] [address] [place] [address] 486865 Pharmacist Pharmacist 01/16/23 Luis A Escobedo MD [address] [place] [address] 081615 Assigned Surgical Provider 02/07/23 04/15/23 Geri Loza PA-C [address] [place] [address] 180915 Assigned Surgical Provider 04/16/23 Raina Patterson APRN [facility] [address] [place] [address] Nurse Practitioner Cardiovascular Disease 05/11/23 documented as of this encounter
--- OUTSIDE RECORDS SUMMARY | 2024-01-06 09:41 | XMS_ITS | Encounter Summary ---
Author Organization [place] Address [address] [place] [address] 05896 Care Team Providers Care Tax Accounting Assistant Name Role Phone Roderick Morelos MD Unavailable [phone] Magno Wood MD Unavailable [phone] Sophie Ocasio Unavailable [phone] Henny Rosales WOOL HANKER ADDICTION SPECIALIST Unavailable Sharee Oliva RD Unavailable [phone] Kaykay Duarte PRODUCT SUPPORT REP Primary Care Provider [phone] Christiane Rodríguez MD Unavailable Luis A Escobedo MD Unavailable [phone] Chely FernandezC Unavailable Jing Cadena APRN LIBRARY SERIALS ASSISTANT Unavailable Radha Lopez [facility] Unavailable +[phone] Luis A Escobedo MD Unavailable [phone] Geri LozaC Unavailable [phone] Raina Patterson APRN ADDICTION SPECIALIST Unavailable [phone] Encounter Details Date Type Department Care Team (Late st Contact Info) Description 10/23/2022 External Order Results [facility] [address] [place] [address] Outside, Provider Class 3 severe obesity with [...] - BLOOD ORDERAB LES Performing Organization Address [facility]/ZIP Co de Phone Number BREEZE PFT NON-INTERFACED [...] - BLOOD ORDERABL ES Performing Organization Address [facility]/ZIP Co de Phone Number MATTIEE PFT NON-INTERFACED (ONBASE SCANS) * Hepatic function [...] - BLOOD ORDERABL ES Performing Organization Address [facility]/ZIP Co de Phone Number MELIDAEZE PFT NON-INTERFACED [...] documented as of this encounter Care Teams Tax Accounting Assistant Relationship Specialty [place] [address] [place] [address] PCP - General 10/15/22 Roderick Morelos MD [address] [place], [place] 859265 Cardiovascular Disease 02/03/22 Magno Wood MD 420 [facility] 396 [place], [place] 155195 Otolaryngology 02/21/22 Sophie Ocasio AuD 909 [place], [place] 636865 Paster Supervisor Audiology 02/21/22 Henny Rosales, WOOL HANKER ADDICTION SPECIALIST [address] [place] [address] Assigned Heart and Vascular Provider 08/09/[address] 909 [place], [place] 001265 Registered Dietitian Dietitian, Registered 09/02/22 Christiane Rodríguez MD 420 [facility] 396 [place], [place] 874045 Otolaryngology 11/12/22 Luis A Escobedo MD [address] [place] [address] 195 [place], [place] 115755 Assigned Surgical Provider 11/01/22 11/28/22 Chely Fernandez PA-C [address] [place] [address] 973215 Assigned Surgical Provider 11/29/22 02/06/23 Jing Cadena, WOOL HANKER LIBRARY SERIALS ASSISTANT 420 [facility] 450 [place], [place] 712595 Clinical Nurse Specialist Anesthesiology 01/15/23 Radha Lopez [facility] 9 [place], [place] 663275 Pharmacist Pharmacist 01/16/23 Luis A Escobedo MD 420 [facility] 195 [place], [place] 703955 Assigned Surgical Provider 02/07/23 04/15/23 Geri Loza PA-C 9 [place] [address] Assigned Surgical Provider 04/16/23 Raina Patterson APRN ADDICTION SPECIALIST [address] [place] [address] Nurse Practitioner Cardiovascular Disease 05/11/23 documented as of this encounter
--- OUTSIDE RECORDS SUMMARY | 2024-01-06 09:41 | XMS_ITS | Encounter Summary ---
Author Organization [place] Address [address] [place] [address]39 Care Team Providers Care New Car Driver Name Role Phone Roderick Morelos MD Unavailable [phone] Magno Wood MD Unavailable [phone] Sophie Ocasio Unavailable [phone] Henny Rosales CHERRY DIPPER MARKET DEVELOPER Unavailable Sharee Oliva RD Unavailable [phone] Kaykay Duarte POTATO INSPECTOR Primary Care Provider [phone] Christiane Rodríguez MD Unavailable Luis A Escobedo MD Unavailable [phone] Chely FernandezC Unavailable [phone] Jing Cadena APRN SUPERVISOR CEMETERY WORKERS Unavailable Radha Lopez [facility] Unavailable [phone] Luis A Escobedo MD Unavailable [phone] Geri LozaC Unavailable [phone] Raina Patterson APRN MARKET DEVELOPER Unavailable [phone] Encounter Details Date Type Department Care Team (Late st Contact Info) Description 10/15/2022 MyC Medical [facility] [place] 909 [facility] [address] 4th [place] [address] Luis A Escobedo MD [address] [place] [address] [facility] 195 [place], [place] 138725 Social History Tobacco Use Types Packs/Day Years [...] documented as of this encounter Care Teams New Car Driver Relationship Specialty [place] [address] [place] [address] PCP - General 10/15/22 Roderick Morelos MD [address] [place] 111685 Cardiovascular Disease 02/03/22 Magno Wood MD [address] [place] [address] [facility] 396 [place], [place] 145095 Otolaryngology 02/21/22 Sophie Ocasio AuD 909 [place], [place] 906465 Diamond Finishing Supervisor Audiology 02/21/22 Henny Rosales, CHERRY DIPPER MARKET DEVELOPER [address] [place] [address] Assigned Heart and Vascular Provider 08/09/[address] [place] [address] 540315 Registered Dietitian Dietitian, Registered 09/02/22 Christiane Rodríguez MD [address] [place] [address] 396 [place] [address] Otolaryngology 11/12/22 Luis A Escobedo MD 420 [facility] 195 [place] [address] Assigned Surgical Provider 11/01/22 11/28/22 Chely Fernandez PA-C [address] [place] [address] 774655 Assigned Surgical Provider 11/29/22 02/06/23 Jing Cadena, CHERRY DIPPER SUPERVISOR CEMETERY WORKERS 420 [facility] 450 [place] [address] Clinical Nurse Specialist Anesthesiology 01/15/23 Radha Lopez [facility] [address] [place] [address] 250045 Pharmacist Pharmacist 01/16/23 Luis A Escobedo MD [address] [place] [address] [facility] 195 [place] [address] Assigned Surgical Provider 02/07/23 04/15/23 Geri Loza PA-C 909 [place] [address] Assigned Surgical Provider 04/16/23 Raina Patterson APRN [facility] [address] [place], [place] 245665 Nurse Practitioner Cardiovascular Disease 05/11/23 documented as of this encounter
--- OUTSIDE RECORDS SUMMARY | 2024-01-06 09:41 | XMS_ITS | Encounter Summary ---
Author Organization [place] Address [address] [place] [address] 6[address] Care Team Providers Care Preschool Paraprofessional Name Role Phone Roderick Morelos MD Unavailable [phone] Magno Wood MD Unavailable [phone] Sophie Ocasio Unavailable [phone] Henny Rosales AIR CONDITIONING MECHANIC INDUSTRIAL AUTOMOBILE CONTRACT CLERK Unavailable [phone] [facility] Primary Care Pr ovider Sharee Oliva RD Unavailable [phone] Kaykay Duarte TOOLS DEVELOPER Primary Care Provider [phone] Christiane Rodríguez MD Unavailable [phone] Luis A Escobedo MD Unavailable +[phone] Chely Fernandez PA-C Unavailable [phone] Jing Cadena APRN PLANT SCIENCES PROFESSOR Unavailable + [phone] Radha Lopez [facility] Unavailable [phone] Luis A Escobedo MD Unavailable +[phone] Geri LozaC Unavailable [phone] Raina Patterson AIR CONDITIONING MECHANIC INDUSTRIAL AUTOMOBILE CONTRACT CLERK Unavailable [phone] Encounter Details Date Type Department Care Team (Late st Contact Info) Description 09/09/2022 Telephone [facility] [place] [address] [place] [address] 4th [place] [address] Geri Loza PA-C 909 [place] [address] Social History Tobacco Use Types Packs/Day Years [...] Geri Gaytan had suggested Mar[facility]. Please advise. [phone] okay to leave VM or send MyChart, patient isn't always able to answer when she's working documented in this encounter Plan of Treatment Not on file documented as of this encounter Visit Diagnoses Not on filedocumented in this encounter Care Teams Preschool Paraprofessional Relationship Specialty Start [place] [address] [place] [address] PCP - General 08/19/22 10/14/22 Kaykay Duarte TOOLS DEVELOPER [address] [place] [address] PCP - General 10/15/22 Roderick Morelos MD [address] [place] [address] Cardiovascular Disease 02/03/22 Magno Wood MD [address] [place] [address] 396 [place] [address] Otolaryngology 02/21/22 Sophie Ocasio AuD 9 [place] [address] Counseling Center Manager Audiology 02/21/22 Henny Rosales APRN AUTOMOBILE CONTRACT CLERK [address] [place] [address]801[address]108 Assigned Heart and Vascular Provider 08/09/[address] [place] [address] 470645 Registered Dietitian Dietitian, Registered 09/02/22 Christiane Rodríguez MD [address] [place] [address] Otolaryngology 11/12/22 Luis A Escobedo MD [address] [place] [address] 28304 Assigned Surgical Provider 11/01/22 11/28/22 Chely Fernandez PA-C [address] [place] [address]127 Assigned Surgical Provider 11/29/22 02/06/23 Jing Cadena APRN PLANT SCIENCES PROFESSOR 420 [facility] 450 [place], [place] 101485 Clinical Nurse Specialist Anesthesiology 01/15/23 Radha Lopez, [facility] 909 [place], [place] 918105 Pharmacist Pharmacist 01/16/23 Luis A Escobedo MD 420 [facility] 195 [place], [place] 977425 Assigned Surgical Provider 02/07/23 04/15/23 Geri Loza PA-C 909 [place] [address] Assigned Surgical Provider 04/16/23 Raina Patterson APRN AUTOMOBILE CONTRACT CLERK [address] [place] 244505 Nurse Practitioner Cardiovascular Disease 05/11/23 documented as of this encounter
--- OUTSIDE RECORDS SUMMARY | 2024-01-06 09:41 | XMS_ITS | Encounter Summary ---
Author Organization [place] Address [address] [place] [address] 4[address]8 Care Team Providers Care Deck Mechanic Name Role Phone Roderick Morelos MD Unavailable Magno Wood MD Unavailable [phone] Sophie Ocasio Unavailable [phone] Henny Rosales SURVEILLANCE CAMERA TECHNICIAN RELAY TESTER Unavailable Sharee Oliva RD Unavailable Kaykay Duarte INFORMATION SECURITY SPECIALIST Primary Care Provider [phone] Christiane Rodríguez MD Unavailable Luis A Escobedo MD Unavailable [phone] Chely Fernandez-C Unavailable [phone] Jing Cadena APRN VACATION PLANNER Unavailable [phone] Radha Lopez [facility] Unavailable [phone] Luis A Escobedo MD Unavailable [phone] Geri LozaC Unavailable [phone] Raina Patterson APRN RELAY TESTER Unavailable [phone] Encounter Details Date Type Department Care Team (Late st Contact Info) Description 10/17/2022 MyC Medical Advice [facility] Weight [facility] [place] 909 [facility] 4th [place] [address] Henny Arguello RN Social History [...] documented as of this encounter Care Teams Deck Mechanic Relationship Specialty [place] [address] [place] [address] PCP - General 10/15/22 Roderick Morelos MD [address] [place] [address] Cardiovascular Disease 02/03/22 Magno Wood MD [address] [place] [address] 396 [place], [place] 481405 Otolaryngology 02/21/22 Sophie Ocasio, AuD [address] [place] [address] 071845 Rubber Off Audiology 02/21/22 Henny Rosales APRN RELAY TESTER [address] [place] [address] Assigned Heart and Vascular Provider 08/09/[address] [place] [address] 196895 Registered Dietitian Dietitian, Registered 09/02/22 Christiane Rodríguez MD [address] [place] [address] 396 [place], [place] 088785 Otolaryngology 11/12/22 Luis A Escobedo MD [address] [place] [address] 994425 Assigned Surgical Provider 11/01/22 11/28/22 Chely Fernandez PA-C [address] [place] [address] 216845 Assigned Surgical Provider 11/29/22 02/06/23 Jing Cadena APRN VACATION PLANNER [address] [place] [address] 450 [place], [place] 044185 Clinical Nurse Specialist Anesthesiology 01/15/23 Radha Lopez [facility] [address] [place] [address] 954745 Pharmacist Pharmacist 01/16/23 Luis A Escobedo MD [address] [place] [address] 195 [place], [place] 268565 Assigned Surgical Provider 02/07/23 04/15/23 Geri Loza PA-C 9 [place], [place] 512245 Assigned Surgical Provider 04/16/23 Raina Patterson APRN CNP [address] [place] [address] Nurse Practitioner Cardiovascular Disease 05/11/23 documented as of this encounter
--- OUTSIDE RECORDS SUMMARY | 2024-01-06 09:41 | XMS_ITS | Encounter Summary ---
Author Organization [place] Address [address] [place] [address] 9[address]58 Care Team Providers Care Clearing Hand Name Role Phone Roderick Morelos MD Unavailable [phone] Magno Wood MD Unavailable [phone] Sophie Ocasio Unavailable [phone] Henny Rosales GUSSET FOLDER PORTABLE PINCH RIVETER Unavailable [phone] [facility] Primary Care Pr ovider Sharee Oliva RD Unavailable [phone] Kaykay Duarte LUMBER CHAIN OFFBEARER Primary Care Provider [phone] Christiane Rodríguez MD Unavailable [phone] Luis A Escobedo MD Unavailable +[phone] Chely Fernandez PA-C Unavailable [phone] Jing Cadena APRN BANANA GRADER Unavailable + [phone] Radha Lopez [facility] Unavailable [phone] Luis A Escobedo MD Unavailable +[phone] Geri LozaC Unavailable [phone] Raina Patterson GUSSET FOLDER PORTABLE PINCH RIVETER Unavailable [phone] Encounter Details Date Type Department Care Team (Late st Contact Info) Description 09/09/2022 MyC Medical Advice [facility] [address] 4th [place] [address] Tanya Larsen RN Social History [...] on filedocumented in this encounter Care Teams Clearing Hand Relationship Specialty Start Date End Date Clinic, [place] [address] [place] [address] PCP - General 08/19/22 10/14/22 Kaykay Duarte, LUMBER CHAIN OFFBEARER [address] [place] [address] Dr [facility] [place] [address] PCP - General 10/15/22 Roderick Morelos MD [address] [place], [place] 969545 Cardiovascular Disease 02/03/22 Magno Wood MD [address] [place] [address] 513425 Otolaryngology 02/21/22 Sophie Ocasio AuD [address] [place] [address] 335715 Electrician Substation Audiology 02/21/22 Henny Rosales, GUSSET FOLDER PORTABLE PINCH RIVETER [address] [place] [place] [address] Assigned Heart and Vascular Provider 08/09/[address] 909 [place] [address] Registered Dietitian Dietitian, Registered 09/02/22 Christiane Rodríguez MD 420 [facility] 396 [place], [place] 309985 Otolaryngology 11/12/22 Luis A Escobedo MD [address] [place] [address] 239185 Assigned Surgical Provider 11/01/22 11/28/22 Chely Fernandez PA-C [address] [place] [address] 112435 Assigned Surgical Provider 11/29/22 02/06/23 Jing Cadena, GUSSET FOLDER BANANA GRADER [address] [place] [address] 450 [place], [place] 816305 Clinical Nurse Specialist Anesthesiology 01/15/23 Radha Lopez, [facility] [address] [place] [address] 553485 Pharmacist Pharmacist 01/16/23 Luis A Escobedo MD [address] [place] [address] 195 [place], [place] 901815 Assigned Surgical Provider 02/07/23 04/15/23 Geri Loza PA-C 909 [place] [address] Assigned Surgical Provider 04/16/23 Raina Patterson APRN PORTABLE PINCH RIVETER [address] [place] [address] Nurse Practitioner Cardiovascular Disease 05/11/23 documented as of this encounter
--- OUTSIDE RECORDS SUMMARY | 2024-01-06 09:41 | XMS_ITS | Encounter Summary ---
Author Organization [place] Address [address] [place] [address] 6[address]77 Care Team Providers Care Merchandise Examiner Name Role Phone Roderick Morelos MD Unavailable [phone] Magno Wood MD Unavailable [phone] Sophie Ocasio Unavailable [phone] [address]enny Rosales NETBACKUP ADMIN COMMUNITY ADMINISTRATOR Unavailable [phone] [facility] Primary Care Pr ovider Sharee Oliva RD Unavailable [phone] Kaykay Duarte DAMPER MAKER Primary Care Provider [phone] Christiane Rodríguez MD Unavailable [phone] Luis A Escobedo MD Unavailable +[phone] Chely Fernandez PA-C Unavailable [phone] Jing Cadena APRN COLLEGE SERVICE OFFICER Unavailable + [phone] Radha Lopez [facility] Unavailable [phone] Luis A Escobedo MD Unavailable [phone] Geri LozaC Unavailable [phone] Raina Patterson NETBACKUP ADMIN COMMUNITY ADMINISTRATOR Unavailable [phone] Encounter Details Date Type Department Care Team (Late st Contact Info) Description 09/15/2022 MyC Medical Advice [facility] Gastro[facility]ology [facility] [place] 990409 [facility] 4th [place] [address] Maria Guadalupe Wolfe Social History [...] on filedocumented in this encounter Care Teams Merchandise Examiner Relationship Specialty Start Date End Date Clinic, [place] [address] [place] [address] PCP - General 08/19/22 10/14/22 Kaykay Duarte, DAMPER MAKER [address] [place] [address] PCP - General 10/15/22 Roderick Morelos MD [address] [place] [address] Cardiovascular Disease 02/03/22 Magno Wood MD [address] [place] [address] 002375 Otolaryngology 02/21/22 Sophie Ocasio AuD [address] [place] [address] 163395 Car Wash Attendant Automatic Audiology 02/21/22 Henny Rosales, NETBACKUP ADMIN COMMUNITY ADMINISTRATOR [address] [place] [address] Assigned Heart and Vascular Provider 08/09/[address] 909 [place], [place] 934045 Registered Dietitian Dietitian, Registered 09/02/22 Christiane Rodríguez MD 420 [facility] 396 [place], [place] 564105 Otolaryngology 11/12/22 Luis A Escobedo MD [address] [place] [address] 195 [place], [place] 618945 Assigned Surgical Provider 11/01/22 11/28/22 Chely Fernandez PA-C [address] [place] [address] 607935 Assigned Surgical Provider 11/29/22 02/06/23 Jing Cadena, NETBACKUP ADMIN COLLEGE SERVICE OFFICER 420 [facility] 450 [place], [place] 874385 Clinical Nurse Specialist Anesthesiology 01/15/23 Radha Lopez, [facility] [address] [place] [address] [phone] Pharmacist Pharmacist 01/16/23 Luis A Escobedo MD [address] [place] [address] 195 [place], [place] 290655 Assigned Surgical Provider 02/07/23 04/15/23 Geri Loza PA-C 909 [place] [address] Assigned Surgical Provider 04/16/23 Raina Patterson APRN COMMUNITY ADMINISTRATOR [address] [place] [address] Nurse Practitioner Cardiovascular Disease 05/11/23 documented as of this encounter
--- OUTSIDE RECORDS SUMMARY | 2024-01-06 09:41 | XMS_ITS | Encounter Summary ---
Author Organization [facility] Address [address] [place] [address] Care Team Providers Care Electronic Maintenance Supervisor Name Role Phone Roderick Morelos MD Unavailable [phone] Magno Wood MD Unavailable Sophie Ocasio Unavailable +[phone] Henny Rosales HUMAN RESOURCES SERVICES SPECIALIST COMMERCIAL RETOUCHER Unavailable +[phone] [facility] Primary Care Pr ovider Sharee Oliva RD Unavailable Kaykay Duarte PUBLIC HEALTH TEACHER Primary Care Provider [phone] Christiane Rodríguez MD Unavailable [phone] Luis A Escobedo MD Unavailable +[phone] Chely Fernandez PA-C Unavailable +[phone] Jing Cadena APRN TAG PRESS OPERATOR Unavailable + [phone] Radha Lopez [facility] Unavailable +- [phone] Luis A Escobedo MD Unavailable +[phone] Geri LozaC Unavailable [phone] Raina Patterson HUMAN RESOURCES SERVICES SPECIALIST COMMERCIAL RETOUCHER Unavailable +[phone] Encounter Details Date Type Department Care Team (Late st Contact Info) Description 10/03/2022 MyC Medical Advice [facility] [place] [address] [place] [address] 4th [place] [phone] Geri Loza PA-C 9 [place] [address] Social History Tobacco Use Types Packs/Day Years [...] on filedocumented in this encounter Care Teams Electronic Maintenance Supervisor Relationship Specialty Start Date End Date Clinic, [place] [address] [place] [address] PCP - General 08/19/22 10/14/22 Kaykay Duarte PUBLIC HEALTH TEACHER [address] [place] [address] [place] [address] PCP - General 10/15/22 Roderick Morelos MD [address] [place] [address] Cardiovascular Disease 02/03/22 Magno Wood MD [address] [place] [address] 396 [place], [place] 243775 Otolaryngology 02/21/22 Sophie Ocasio, AuD [address] [place] [address] 187755 Heavy Machinery Operator Audiology 02/21/22 Henny Rosales APRN COMMERCIAL RETOUCHER [address] [place] [phone] Assigned Heart and Vascular Provider 08/09/[address] [place] [address] [id number] Registered Dietitian Dietitian, Registered 09/02/22 Christiane Rodríguez MD [address] [place] [address] 396 [place], [place] 048205 Otolaryngology 11/12/22 Luis A Escobedo MD [address] [place] [address] 681325 Assigned Surgical Provider 11/01/22 11/28/22 Cehly Fernandez PA-C [address] [place] [address] 485365 Assigned Surgical Provider 11/29/22 02/06/23 Jing Cadena HUMAN RESOURCES SERVICES SPECIALIST TAG PRESS OPERATOR [address] [place] [address] 450 [place], [place] 509215 Clinical Nurse Specialist Anesthesiology 01/15/23 Radha Lopez [facility] [address] [place] [address] 924695 Pharmacist Pharmacist 01/16/23 Luis A Escobedo MD [address] [place] [address] 195 [place], [place] 375015 Assigned Surgical Provider 02/07/23 04/15/23 Geri Loza PA-C 9 [place] [address] Assigned Surgical Provider 04/16/23 Raina Patterson APRN COMMERCIAL RETOUCHER [address] [place], [place] 882345 Nurse Practitioner Cardiovascular Disease 05/11/23 documented as of this encounter
--- OUTSIDE RECORDS SUMMARY | 2024-01-06 09:42 | XMS_ITS | Encounter Summary ---
Author Organization [facility] Address [address] [place] [address] Care Team Providers Care Tool Procurement Coordinator Name Role Phone Elvia Nugent [place] Primary Care Provider Unavailable Roderick Morelos MD Unavailable [phone] Magno Wood MD Unavailable [phone] Sophie Ocasio Unavailable +[phone] Henny Rosales CREDIT RATING INSPECTOR CLIENT SALES AND SERVICE OFFICER Unavailable [phone] [facility], Sebastian Jovanna [place] Primary Care Pr ovider Sharee Oliva RD Unavailable [phone] Kaykay Duarte STRUCTURAL IRON WORKER Primary Care Provider [phone] Christiane Rodríguez MD Unavailable +[phone] Luis A Escobedo MD Unavailable +[phone] Chely FernandezC Unavailable +[phone] Jing Cadena APRN CAR BODY DESIGNER Unavailable +[phone] Radha Lopez [facility] Unavailable [phone] Luis A Escobedo MD Unavailable +[phone] Geri Loza PAEddaC Unavailable +[phone] Ekman, Raina CREDIT RATING INSPECTOR CLIENT SALES AND SERVICE OFFICER Unavailable Encounter Details Date Type Department Care Team (Late st Contact Info) Description 08/16/2022 [facility] [address] 4th [place] [address] Kang Griffiths Social History Tobacco [...] on filedocumented in this encounter Care Teams Tool Procurement Coordinator Relationship Specialty Start Date End Date Ernestina Martini PCP - General Family Practice 10/12/19 08/18/22 [facility] [address] [place] [address] PCP - General 08/19/22 10/14/22 [place] [address] [place] [address] PCP - General 10/15/22 Roderick Morelos MD [address] [place] 779855 Cardiovascular Disease 02/03/22 Magno Wood MD [address] [place] [facility] 396 [place], [place] 329795 Otolaryngology 02/21/22 Sophie Ocasio AuD 9 [place], [place] 206885 Tool And Die Maker Audiology 02/21/22 Henny Rosales APRN CLIENT SALES AND SERVICE OFFICER [address] [place] [phone] Assigned Heart and Vascular Provider 08/09/[address] [place] [address] [phone] Registered Dietitian Dietitian, Registered 09/02/22 Christiane Rodríguez MD 420 [facility] 396 [place], [place] 223065 Otolaryngology 11/12/22 Luis A Escobedo MD 420 [facility] 195 [place] [address] Assigned Surgical Provider 11/01/22 11/28/22 Chely Fernandez PA-C [address] [place] [address] Assigned Surgical Provider 11/29/22 02/06/23 Jing Cadena APRN CAR BODY DESIGNER 420 [facility] 450 [place] [address] Clinical Nurse Specialist Anesthesiology 01/15/23 Radha Lopez, [facility] [address] [place] [address] 990215 Pharmacist Pharmacist 01/16/23 Luis A Escobedo MD 420 [facility] 195 [place], [place] 931265 Assigned Surgical Provider 02/07/23 04/15/23 Geri Loza PA-C 909 [place], [place] 343705 Assigned Surgical Provider 04/16/23 Raina Patterson APRN CLIENT SALES AND SERVICE OFFICER [address] [facility] [address] [place] 991465 Nurse Practitioner Cardiovascular Disease 05/11/23 documented as of this encounter
--- OUTSIDE RECORDS SUMMARY | 2024-01-06 09:42 | XMS_ITS | Encounter Summary ---
Author Organization [facility] Address [address] [place] [address] Care Team Providers Care Nitriles Lab Technician Name Role Phone Roderick Morelos MD Unavailable [phone] Magno Wood MD Unavailable Sophie Ocasio Unavailable [phone] Henyn Rosales QUALITY AND RELIABILITY ENGINEER PUPPY WALKER Unavailable +[phone] [facility] Primary Care Pr ovider Sharee Oliva RD Unavailable [phone] Kaykay Duarte P D DRIVER Primary Care Provider [phone] Christiane Rodríguez MD Unavailable [phone] Luis A Escobedo MD Unavailable +[phone] Chely Fernandez PA-C Unavailable +[phone] Jing Cadena APRN STEAM FITTER HELPER Unavailable + [phone] Radha Lopez [facility] Unavailable +[phone] Luis A Escobedo MD Unavailable +[phone] Geri LozaC Unavailable [phone] Raina Patterson QUALITY AND RELIABILITY ENGINEER PUPPY WALKER Unavailable +[phone] Encounter Details Date Type Department Care Team (Late st Contact Info) Description 09/02/2022 [facility] [address] 4th [place] [address] Kang Griffiths Social History Tobacco [...] on filedocumented in this encounter Care Teams Nitriles Lab Technician Relationship Specialty Start Date End [place] [address] [place] [address] PCP - General 08/19/22 10/14/22 Kaykay Duarte NP [address] [place] [address] [place] [address] PCP - General 10/15/22 Roderick Morelos MD [address] [place], [place] 599785 Cardiovascular Disease 02/03/22 Magno Wood MD [address] [place] [address] 850205 Otolaryngology 02/21/22 Sophie Ocasio, AuD [address] [place] [address] Supervisor Mirror Fabrication Audiology 02/21/22 Henny Rosales, QUALITY AND RELIABILITY ENGINEER PUPPY WALKER [address] [place] [phone] Assigned Heart and Vascular Provider 08/09/[address] [place] [address] [id number] Registered Dietitian Dietitian, Registered 09/02/22 Christiane Rodríguez MD [address] [place] [address] 396 [place], [place] 737565 Otolaryngology 11/12/22 Luis A Escobedo MD [address] [place] [address] 574915 Assigned Surgical Provider 11/01/22 11/28/22 Chely Fernandez PA-C [address] [place] [address] [phone] Assigned Surgical Provider 11/29/22 02/06/23 Jing Cadena, QUALITY AND RELIABILITY ENGINEER STEAM FITTER HELPER [address] [place] [address] 450 [place], [place] 698595 Clinical Nurse Specialist Anesthesiology 01/15/23 Radha Lopez, [facility] [address] [place] [address] 076855 Pharmacist Pharmacist 01/16/23 Luis A Escobedo MD [address] [place] [address] 195 [place], [place] 959465 Assigned Surgical Provider 02/07/23 04/15/23 Geri Loza PA-C 9 [place] [address] Assigned Surgical Provider 04/16/23 Raina Patterson [facility]N [facility] [address] [facility] [address] [place] [address] Nurse Practitioner Cardiovascular Disease 05/11/23 documented as of this encounter
--- OUTSIDE RECORDS SUMMARY | 2024-01-06 09:42 | XMS_ITS | Encounter Summary ---
Author Organization [facility] Address [address] [place] [address] Care Team Providers Care Exhibition Designer Name Role Phone Edda Agudelo PA-C Primary Care Provider [phone] Magno Wood MD Unavailable [phone] [place] [facility] Primary [facility] Provider Unavailable Parth Ellis MD Unavailable +[phone] Tati Ayala MD Unavailable +[phone] Khris Butt MD Unavailable +[phone] MorelosRoderick nunes MD Unavailable [phone] Roderick Morelos MD Unavailable [phone] Magno Wood MD Unavailable [phone] Sophie Ocasio Unavailable +[phone] Parth Ellis MD Unavailable +[phone] MorelosRoderick nunes MD Unavailable [phone] Henny Rosales APRN PRESIDENT/GM PRODUCTION & LIVE EXPERIENCES Unavailable [phone] [facility] Primary Care Pr ovider Sharee Oliva RD Unavailable [phone] Kaykay Duarte NP Primary Care Provider [phone] Christiane Rodríguez MD Unavailable +[phone] Luis A Escobedo MD Unavailable + [phone] Chely Fernandez PA-C Unavailable +[phone] Cadena Jing Susie FUENTES ANIMAL KEEPER HEAD Unavailable + [phone] Radha Lopez [facility] Unavailable [phone] Luis A Escobedo MD Unavailable + [phone] Dago Geri Gaytan PA-C Unavailable +[phone] Raina Patterson GINA PRESIDENT/GM PRODUCTION & LIVE EXPERIENCES Unavailable [phone] Encounter Details Date Type Department Care Team (Late st Contact Info) Description 04/20/2009 Office Visit-[facility] [address] [place] [phone] Lauri Canada APRN CNP NO INFO AVAILABLE [...] Referring Physician: LUIS A WORRELL Referring Clinic: [facility] CURRENT DIAGNOSES 1. - Hypercholesterolemia, 272.0 2. [...] event monitor February 2006, echocardiogram Dec 2007 PMx Echo Results: 12/2007 Mitral valve normal in structure and function, normal EF Left Ventricular Ejection Fraction: 70% per nuc FAMILY HISTORY: Father - pacemaker; Mother - Age 34, cancer-breast; Half-Brother - DC; Sister 1 - CAD; CARDIAC RISK FACTORS [...] lives with and children; Place of - [place]; Hours Worked - 30 hours per week; [...] Out COVID-19 03/19/2020 03/19/2020 03/19/2020 6:22 PM INSTRUCTOR APPAREL MANUFACTURE COVID-19 03/19/2020 03/19/2020 04/09/2020 11:3 9 PM INSTRUCTOR APPAREL MANUFACTURE Rule Out COVID-19 06/19/2021 06/19/2021 06/19/2021 1:37 AM CDT Rule Out COVID-19 10/29/2021 10/29/2021 10/29/2021 1:07 AM CDT documented as of this encounter Care Teams Exhibition Designer Relationship Specialty Start Date End Date Edda Agudelo PA-C [facility] [address] [address] PCP - General 05/04/12 10/11/19 [facility] [address] [address] PCP - General Family Practice 10/12/19 08/18/22 [facility] [address] [place] [address] PCP - General 08/19/22 10/14/22 [place] [address] [place] [address] PCP - General 10/15/22 Magno Wood MD [address] [address] Otolaryngology 05/29/15 08/02/17 Parth Ellis MD [address] [place] [address] Assigned Heart and Vascular Provider 01/13/20 12/13/21 Tati Ayala MD [address] [place] [address] Assigned Endocrinology Provider 01/13/20 12/29/20 Khris Butt MD [address] [facility] [address] [place] [address] Assigned Heart and Vascular Provider 12/14/21 02/14/22 Roderick Morelos MD [address] [place] 971305 MD Cardiovascular Disease 02/03/22 Roderick Morelos MD [address] [place], [place] 813325 Assigned Heart and Vascular Provider 02/15/22 07/18/22 Magno Wood MD [address] [place] [address] 396 [place], [place] 535925 Otolaryngology 02/21/22 Sophie Ocasio AuD 909 [place], [place] 317715 Structural Shop Helper Audiology 02/21/22 Parth Ellis MD [address] [place] 133265 Assigned Heart and Vascular Provider 07/19/22 07/25/22 Roderick Morelos MD [address] [place] [address] Assigned Heart and Vascular Provider 07/26/22 08/08/22 Henny Rosales, BOARD LAYER PRESIDENT/GM PRODUCTION & LIVE EXPERIENCES [address] [place] [address] Assigned Heart and Vascular Provider 08/09/[address] [place] [address] 856175 Registered Dietitian Dietitian, Registered 09/02/22 Christiane Rodríguez MD [address] [place] [address] 396 [place] [address] Otolaryngology 11/12/22 Luis A Escobedo MD [address] [place] [address] Assigned Surgical Provider 11/01/22 11/28/22 Chely Feranndez PA-C [address] [place] [address] [id number] Assigned Surgical Provider 11/29/22 02/06/23 Jing Cadena, BOARD LAYER ANIMAL KEEPER HEAD [address] [place] [address] 450 [place], [place] 363515 Clinical Nurse Specialist Anesthesiology 01/15/23 Radha Lopez [facility] [address] [place] [address] 969645 Pharmacist Pharmacist 01/16/23 Luis A Escobedo MD [address] [place] [address] 195 [place], [place] 616815 Assigned Surgical Provider 02/07/23 04/15/23 Geri Loza PA-C 909 [place] [address] Assigned Surgical Provider 04/16/23 Raina Patterson APRN CNP [address] [facility] [address] [place] [address] Nurse Practitioner Cardiovascular Disease 05/11/23 documented as of this encounter
--- OUTSIDE RECORDS SUMMARY | 2024-01-06 09:42 | XMS_ITS | Encounter Summary ---
Author Organization [facility] Address [address] [place] [address] Care Team Providers Care Choir Teacher Name Role Phone Barrington Agudelo PA-C Primary Care Provider [phone] Magno Wood MD Unavailable [phone] [place] [facility] Primary Care Provider Unavailable Parth Ellis MD Unavailable +[phone] Tati Ayala MD Unavailable +[phone] Khris Butt MD Unavailable +[phone] MorelosRoderick nunes MD Unavailable [phone] Roderick Morelos MD Unavailable [phone] Magno Wood MD Unavailable [phone] Sophie Ocasio Unavailable +[phone] Parth Ellis MD Unavailable +[phone] MorelosRoderick nunes MD Unavailable [phone] Henny Rosales APRN PEDORTHIST Unavailable [phone] [facility] Primary Care Pr ovider Sharee Oliva RD Unavailable [phone] Kaykay Duarte NP Primary Care Provider Christiane Rodríguez MD Unavailable +[phone] Luis A Escobedo MD Unavailable + [phone] Chely Fernandez PA-C Unavailable +[phone] Cadena Jing Susie FUENTES [facility] Unavailable + [phone] Radha Lopez [facility] Unavailable [phone] Luis A Escobedo MD Unavailable +[phone] Geri Loza PA-C Unavailable +[phone] Raina Patterson GINA PEDORTHIST Unavailable [phone] Encounter Details Date Type Department Care Team (Late st Contact Info) Description 08/21/2011 Office Visit-[facility] Heart [place] [address] [place] [address] Dane Rosa MD Social History Tobacco [...] old Referring Physician: BARRINGTON LARA Referring Clinic: [facility] CURRENT DIAGNOSES 1. - Hypercholesterolemia, 272.0 [...] lives with and children; Place of - [place]; Hours Worked - 30 hours per week; [...] Out COVID-19 03/19/2020 03/19/2020 03/19/2020 6:22 PM IMMIGRATION CONSULTANT COVID-19 03/19/2020 03/19/2020 04/09/2020 11:3 9 PM IMMIGRATION CONSULTANT Rule Out COVID-19 06/19/2021 06/19/2021 06/19/2021 1:37 AM CDT Rule Out COVID-19 10/29/2021 10/29/2021 10/29/2021 1:07 AM CDT documented as of this encounter Care Teams Choir Teacher Relationship Specialty Start Date End Date Barrington Agudelo PA-C [facility] [address] [facility] 102 [place], [place] 416348 PCP - General 05/04/12 10/11/19 Ernestina Martini 420 [facility] 396 [place] [address] PCP - General Family Practice 10/12/19 08/18/22 [facility] [place] [address] [facility] [place] [address] PCP - General 08/19/22 10/14/22 [place] [address] [place] [address] PCP - General 10/15/22 Magno Wood MD 420 [facility] 396 [place], [place] 939925 Otolaryngology 05/29/15 08/02/17 Parth Ellis MD [address] [place] 128885 Assigned Heart and Vascular Provider 01/13/20 12/13/21 Tati Ayala MD [address] [place], [place] 271700 Assigned Endocrinology Provider 01/13/20 12/29/20 Khris Butt MD [address] [place] 829815 Assigned Heart and Vascular Provider 12/14/21 02/14/22 Roderick Morelos MD [address] [place] 956515 Cardiovascular Disease 02/03/22 Roderick Morelos MD [address] [place] 225155 Assigned Heart and Vascular Provider 02/15/22 07/18/22 Magno Wood MD [address] [place] [address] 363755 Otolaryngology 02/21/22 Sophie Ocasio AuD [address] [place] [address] 549855 Orthopedic Tech Audiology 02/21/22 Parth Ellis MD [address] [place], [place] 8657[address] Assigned Heart and Vascular Provider 07/19/22 07/25/22 Roderick Morelos MD [address] [place], [place] 910415 Assigned Heart and Vascular Provider 07/26/22 08/08/22 Henny Rosales APRN PEDORTHIST [address] [place] [address] Assigned Heart and Vascular Provider 08/09/[address] [place] [address] 444215 Registered Dietitian Dietitian, Registered 09/02/22 Christiane Rodríguez MD [address] [place] [address] 528245 Otolaryngology 11/12/22 Luis A Escobedo MD [address] [place] [address] 220575 Assigned Surgical Provider 11/01/22 11/28/22 Chely Fernandez PA-C 909 [place] [address] Assigned Surgical Provider 11/29/22 02/06/23 Jing Cadena APRN HORSE STUD MANAGER 420 [facility] 450 [place], [place] 095305 Clinical Nurse Specialist Anesthesiology 01/15/23 Radha Lopez [facility] [address] [place] [address] 088765 Pharmacist Pharmacist 01/16/23 Luis A Escobedo MD [address] [place] [address] 195 [place] [address] Assigned Surgical Provider 02/07/23 04/15/23 Geri Loza PA-C [address] [place] [address] 604875 Assigned Surgical Provider 04/16/23 Raina Patterson APRN PEDORTHIST [address] [place] 453035 Nurse Practitioner Cardiovascular Disease 05/11/23 documented as of this encounter
--- OUTSIDE RECORDS SUMMARY | 2024-01-06 09:42 | XMS_ITS | Encounter Summary ---
Author Organization [facility] Address [address] [place] [address] Care Team Providers Care Electronic Operator Name Role Phone [facility] Provider Unavailable Roderick Morelos MD Unavailable [phone] Roderick Morelos MD Unavailable [phone] Magno Wood MD Unavailable [phone] Sophie Ocasio AuD Unavailable +[phone] Parth Ellis MD Unavailable [phone] Roderick Morelos MD Unavailable [phone] Henny Rosales APRN SALES REPRESENTATIVE MALT LIQUORS Unavailable +[phone] [facility] Primary Care Pr ovider Sharee Oliva RD Unavailable [phone] Kaykay Duarte DRIFT MINER Primary Care Provider Christiane Rodríguez MD Unavailable + [phone] Luis A Escobedo MD Unavailable +[phone] Chely Fernandez PA-C Unavailable +[phone] Jing Cadena FRANCHISE FIELD CONSULTANT COKE LOADER Unavailable [phone] Radha Lopez [facility] Unavailable [phone] Luis A Escobedo MD Unavailable Geri Loza PA-C Unavailable Raina Patterson APRN SALES REPRESENTATIVE MALT LIQUORS Unavailable Encounter Details Date Type Department Care Team (Late st Contact Info) Description 04/08/2022 [facility] Adv[facility] [place] 6405 [facility] [address] [place] [phone] Suha Wade, RN Social History Tobacco Use [...] Coronavirus/COVID-19? No / Unsure 04/09/2022 6:32 AM SYSTEM SUPPORT ADMINISTRATOR documented as of this encounter Plan of Treatment Not on file documented as of this encounter Visit Diagnoses Not on filedocumented in this encounter Care Teams Electronic Operator Relationship Specialty Start Date End Date Ernestina Martini PCP - General Family Practice 10/12/19 08/18/22 [facility] [place] [address] [place] [address] PCP - General 08/19/22 10/14/22 [place] [address] [place] [address] PCP - General 10/15/22 Roderick Morelos MD [address] [place] [address] Cardiovascular Disease 02/03/22 Roderick Morelos MD [address] [place] [address] Assigned Heart and Vascular Provider 02/15/22 07/18/22 Magno Wood MD [address] [place] [address] 967135 Otolaryngology 02/21/22 Sophie Ocasio AuD 9 [place], [place] 690255 Strategic Planning Consultant Audiology 02/21/22 Parth Ellis MD [address] [place] [place] 262135 Assigned Heart and Vascular Provider 07/19/22 07/25/22 Roderick Morelos MD [address] [place] [address] Assigned Heart and Vascular Provider 07/26/22 08/08/22 Henny Rosales, FRANCHISE FIELD CONSULTANT SALES REPRESENTATIVE MALT LIQUORS [address] [place] [phone] Assigned Heart and Vascular Provider 08/09/22 Sharee Oliva, RD [address] [place] [address] [id number] Registered Dietitian Dietitian, Registered 09/02/22 Christiane Rodríguez MD [address] [place] [address] 811955 Otolaryngology 11/12/22 Luis A Escobedo MD [address] [address] Assigned Surgical Provider 11/01/22 11/28/22 Chely Fernandez PA-C 909 [place], [place] 205255 Assigned Surgical Provider 11/29/22 02/06/23 Jing Cadena APRN COKE LOADER [address] 245705 Clinical Nurse Specialist Anesthesiology 01/15/23 Radha Lopez, [facility] [address] [place] [address] 476445 Pharmacist Pharmacist 01/16/23 Luis A Escobedo MD [address] [address] Assigned Surgical Provider 02/07/23 04/15/23 Geri Loza PA-C 909 [place] [address] Assigned Surgical Provider 04/16/23 Raina Patterson APRN SALES REPRESENTATIVE MALT LIQUORS [address] [place] 133935 Nurse Practitioner Cardiovascular Disease 05/11/23 documented as of this encounter
--- OUTSIDE RECORDS SUMMARY | 2024-01-06 09:42 | XMS_ITS | Encounter Summary ---
Author Organization [place] Address [address] [place] [address] 38126 Care Team Providers Care Cardiovascular Technician Name Role Phone Elvia Nugent Preston Primary Care Provider Unavailable Parth Ellis MD Unavailable [phone] Tati Ayala MD Unavailable [phone] Khris Butt MD Unavailable +[phone] MorelosRoderick nunes MD Unavailable [phone] Roderick Morelos MD Unavailable [phone] Magno Wood MD Unavailable [phone] Sophie Ocasio Unavailable +[phone] Parth Ellis MD Unavailable +[phone] Roderick Morelos MD Unavailable [phone] Henny Rosales APRN EXECUTIVE CHEF ASSISTANT Unavailable +[phone] [facility] Jovanna Preston Primary Care Pr ovider Sharee Oliva RD Unavailable [phone] Kaykay Duarte DIMENSION WAREHOUSE SUPERVISOR Primary Care Provider [phone] Christiane Rodríguez MD Unavailable +[phone] Luis A Escobedo MD Unavailable +[phone] Chely Fernandez PA-C Unavailable [phone] CadenaJing jacob Susie STOCKROOM WORKER DRAG DOWN Unavailable Radha Lopez Estuardo [facility] Unavailable +[phone] Luis A Escobedo MD Unavailable +[phone] SevenGeri klein Lucila BALDERASC Unavailable [phone] Raina Patterson STOCKROOM WORKER EXECUTIVE CHEF ASSISTANT Unavailable Encounter Details Date Type Department [...] documented as of this encounter Care Teams Cardiovascular Technician Relationship Specialty Start Date End Date Ernestina Martini PCP - General Family Practice 10/12/19 [facility]18[facility]22 [facility] [address] [place], [place] 733077 PCP - General 08/19/22 10/14/22 [place] [address] [place] [address] PCP - General 10/15/22 Parth Ellis MD [address] [place] 512165 Assigned Heart and Vascular Provider 01/13/20 12/13/21 Tati Ayala MD [address] [place], [place] 983040 Assigned Endocrinology Provider 01/13/20 12/29/20 Khris Butt MD [address] [facility] [address] [place] [address] Assigned Heart and Vascular Provider 12/14/21 02/14/22 Roderick Morelos MD [address] [place] [address] Cardiovascular Disease 02/03/22 Roderick Morelos MD [address] [place] [address] Assigned Heart and Vascular Provider 02/15/22 07/18/22 Magno Wood MD [address] [place] [address] 409325 Otolaryngology 02/21/22 Sophie Ocasio AuD [address] [place] [address] 805045 External Auditor Audiology 02/21/22 Parth Ellis MD [address] [place] 297655 Assigned Heart and Vascular Provider 07/19/22 07/25/22 Roderick Morelos MD [address] [place] [address] Assigned Heart and Vascular Provider 07/26/22 08/08/22 Henny Rosales APRN EXECUTIVE CHEF ASSISTANT [address] [place] [address] Assigned Heart and Vascular Provider 08/09/[address] 9 [place], [place] 724945 Registered Dietitian Dietitian, Registered 09/02/22 Christiane Rodríguez MD [address] [place] [address] 396 [place], [place] 884965 Otolaryngology 11/12/22 Luis A Escobedo MD [address] [place] [address] 195 [place], [place] 116355 Assigned Surgical Provider 11/01/22 11/28/22 Chely Fernandez PA-C [address] [place] [address] 440205 Assigned Surgical Provider 11/29/22 02/06/23 Jing Cadena APRN DRAG DOWN [address] [place] [address] 450 [place], [place] 318195 Clinical Nurse Specialist Anesthesiology 01/15/23 Radha Lopez, [facility] [address] [place] [address] Pharmacist Pharmacist 01/16/23 Luis A Escobedo MD [address] [place] [address] 195 [place] [address] Assigned Surgical Provider 02/07/23 04/15/23 Geri Loza PA-C [address] [place] [address] Assigned Surgical Provider 04/16/23 Raina Patterson APRN [facility] [address] [place] [address] Nurse Practitioner Cardiovascular Disease 05/11/23 documented as of this encounter
--- OUTSIDE RECORDS SUMMARY | 2024-01-06 09:42 | XMS_ITS | Encounter Summary ---
Author Organization [place] Address [address] [place] [address]36 Care Team Providers Care Career Technology Teacher Name Role Phone Roderick Morelos MD Unavailable Magno Wood MD Unavailable [phone] Sophie Ocasio Unavailable +[phone] Henny Rosales MATERIALS ASSISTANT DIRECT SUPPORT WORKER Unavailable +[phone] [facility] Primary Care Pr ovider Sharee Oliva RD Unavailable [phone] Kaykay Duarte WOOD ROOM SUPERVISOR Primary Care Provider [phone] Christiane Rodríguez MD Unavailable [phone] Luis A Escobedo MD Unavailable +[phone] Chely Fernandez PA-C Unavailable +[phone] Jing Cadena APRN SLIVER MACHINE OPERATOR Unavailable + [phone] Radha Lopez [facility] Unavailable +[phone] Luis A Escobedo MD Unavailable +[phone] Geri LozaC Unavailable [phone] Raina Patterson MATERIALS ASSISTANT DIRECT SUPPORT WORKER Unavailable [phone] Encounter Details Date Type Department Care Team (Late st Contact Info) Description 08/19/2022 Telephone M [facility] [place] [address] [place] [address] 4th [place] [address] Geri Loza PA-C 909 [place] [address] Social History Tobacco Use Types Packs/Day Years [...] her insurance won't pay for them at [place] and she needs the lab orders sent to [facility] in [place]. Please send myc msg to pt once lab orders sent. documented in this encounter Plan of Treatment Not on file documented as of this encounter Visit Diagnoses Not on filedocumented in this encounter Care Teams Career Technology Teacher Relationship Specialty Start Date [place] [address] [place], [place] 977747 PCP - General 08/19/22 10/14/22 [place] [address] [place] [address] PCP - General 10/15/22 Roderick Morelos MD [address] [place] [address] Cardiovascular Disease 02/03/22 Magno Wood MD 420 [facility] 396 [place] [address] Otolaryngology 02/21/22 Sophie Ocasio AuD [address] [place] [address] 234465 Machine Welt Butter Audiology 02/21/22 Henny Rosales APRN DIRECT SUPPORT WORKER [address] [place] [address] Assigned Heart and Vascular Provider 08/09/[address] [place] [address] 724555 Registered Dietitian Dietitian, Registered 09/02/22 Christiane Rodríguez MD [address] [place] [address] 264525 Otolaryngology 11/12/22 Luis A Escobedo MD [address] [place] [address] 742235 Assigned Surgical Provider 11/01/22 11/28/22 Chely Fernandez PA-C [address] [place] [address] 899305 Assigned Surgical Provider 11/29/22 02/06/23 Jing Cadena APRN SLIVER MACHINE OPERATOR 420 [facility] 450 [place], [place] 534835 Clinical Nurse Specialist Anesthesiology 01/15/23 Radha Lopez, [facility] 909 [place], [place] 484465 Pharmacist Pharmacist 01/16/23 Luis A Escobedo MD 420 [facility] 195 [place], [place] 461475 Assigned Surgical Provider 02/07/23 04/15/23 Geri Loza PA-C 909 [place], [place] 062215 Assigned Surgical Provider 04/16/23 Raina Patterson, GINA DIRECT SUPPORT WORKER [address] [place] 440875 Nurse Practitioner Cardiovascular Disease 05/11/23 documented as of this encounter
--- OUTSIDE RECORDS SUMMARY | 2024-01-06 09:42 | XMS_ITS | Encounter Summary ---
Author Organization [place] Address [address] [place] [address] Care Team Providers Care Graduate Civil Engineer Name Role Phone Edda Agudelo PA-C Primary Care Provider [phone] Magno Wood MD Unavailable [phone] [place] [facility] Primary Care Provider Unavailable Parth Ellis MD Unavailable +[phone] Tati Ayala MD Unavailable +[phone] Khris Butt MD Unavailable +[phone] MorelosRoderick nunes MD Unavailable [phone] Roderick Morelos MD Unavailable [phone] Magno Wood MD Unavailable [phone] Sophie Ocasio Unavailable +[phone] Parth Ellis MD Unavailable +[phone] MorelosRoderick nunes MD Unavailable [phone] Henny Rosales APRN COLD ROLL INSPECTOR Unavailable [phone] [facility] Primary Care Pr ovider Sharee Oliva RD Unavailable [phone] Kaykay Duarte NP Primary Care Provider Christiane Rodríguez MD Unavailable +[phone] Luis A Escobedo MD Unavailable + [phone] Chely Fernandez PA-C Unavailable +[phone] Cadena Jing Susie FUENTES MARKETING COMPLIANCE MANAGER Unavailable + [phone] Radha Lopez [facility] Unavailable +[phone] Luis A Escobedo MD Unavailable + [phone] Dago Geri Gaytan PA-C Unavailable +[phone] Raina Patterson GINA COLD ROLL INSPECTOR Unavailable +[phone] Encounter Details Date Type Department Care Team (Late st Contact Info) Description 06/13/2009 [facility] [address] [place] [address] Lauri Canada APRN CNP NO INFO AVAILABLE [...] Referring Physician: LUIS A WORRELL Referring Clinic: [facility] CURRENT DIAGNOSES 1. 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 On Crestor 20 mg a day (which [...] lives with and children; Place of - [place]; Hours Worked - 30 hours per week; [...] Reji Li MD 3 months-MUST BE ANDRE-NOT CLINICAL NURSE 2. Lipid profile/ALT 3 months Lauri Canada, N.P. documented in this encounter Plan of Treatment Not on file documented as of this encounter Visit Diagnoses Not on filedocumented in this encounter Additional Health Concerns Infection Onset Date Last Indicated Resolved Time Rule Out COVID-19 03/19/2020 03/19/2020 03/19/2020 6:22 PM PROGRAM DIRECTOR SCOUTING COVID-19 03/19/2020 03/19/2020 04/09/2020 11:3 9 PM PROGRAM DIRECTOR SCOUTING Rule Out COVID-19 06/19/2021 06/19/2021 06/19/2021 1:37 AM CDT Rule Out COVID-19 10/29/2021 10/29/2021 10/29/2021 1:07 AM CDT documented as of this encounter Care Teams Graduate Civil Engineer Relationship Specialty Start Date End Date Edda Agudelo PA-C [facility] [address] [place] [address] PCP - General 05/04/12 10/11/19 Ernestina Martini 420 [facility] 396 [place] [address] PCP - General Family Practice 10/12/19 08/18/22 [facility] [address] [place] [address] PCP - General 08/19/22 10/14/22 Kaykay Duarte, CLINICAL NURSE [address] [place] [address] PCP - General 10/15/22 Magno Wood MD 420 [facility] 396 [place] [address] Otolaryngology 05/29/15 08/02/17 Parth Ellis MD [address] [place] [address] Assigned Heart and Vascular Provider 01/13/20 12/13/21 Tati Ayala MD [address] [place] [address] Assigned Endocrinology Provider 01/13/20 12/29/20 Khris Butt MD [address] [place] [address] Assigned Heart and Vascular Provider 12/14/21 02/14/22 Roderick Morelos MD [address] [place] [address] Cardiovascular Disease 02/03/22 Roderick Morelos MD [address] [place] 900425 Assigned Heart and Vascular Provider 02/15/22 07/18/22 Magno Wood MD [address] [place] [address] 158685 Otolaryngology 02/21/22 Sophie Ocasio AuD 909 [place], [place] 515155 Investment Manager Audiology 02/21/22 Parth Ellis MD [address] [place] [address] Assigned Heart and Vascular Provider 07/19/22 07/25/22 Roderick Morelos MD [address] [place] [address] Assigned Heart and Vascular Provider 07/26/22 08/08/22 Henny Rosales APRN COLD ROLL INSPECTOR [address] [place] [address] Assigned Heart and Vascular Provider 08/09/[address] [place] [address] 416825 Registered Dietitian Dietitian, Registered 09/02/22 Christiane Rodríguez MD [address] [place] [address] 396 [place], [place] 649315 Otolaryngology 11/12/22 Luis A Escobedo MD [address] [place] [address] 926535 Assigned Surgical Provider 11/01/22 11/28/22 Chely Fernandez PA-C [address] [place] [address] 791545 Assigned Surgical Provider 11/29/22 02/06/23 Jing Cadena APRN [facility] [address] [place] [address] 450 [place], [place] 065555 Clinical Nurse Specialist Anesthesiology 01/15/23 Radha Lopez [facility] [address] [place] [address] 461635 Pharmacist Pharmacist 01/16/23 Luis A Escobedo MD [address] [place] [address] 313715 Assigned Surgical Provider 02/07/23 04/15/23 Geri Loza PA-C [address] [place] [address] 089255 Assigned Surgical Provider 04/16/23 Raina Patterson APRN [facility] [address] [place] [address] Nurse Practitioner Cardiovascular Disease 05/11/23 documented as of this encounter
--- OUTSIDE RECORDS SUMMARY | 2024-01-06 09:42 | XMS_ITS | Encounter Summary ---
Author Organization [place] Address [address] [place] [address] Care Team Providers Care Speech Language Pathology Assistant Name Role Phone [facility] Primary Care Provider Unavailable Khris Butt MD Unavailable [phone] MorelosRoderick nunes MD Unavailable [phone] Roderick Morelos MD Unavailable [phone] Magno Wood MD Unavailable [phone] Sophie Ocasio Unavailable [phone] Parth Ellis MD Unavailable MorelosRoderick nunes MD Unavailable Henny Rosales APRN FOUNTAIN SUPERVISOR Unavailable [phone] [facility] [place] Nugent [place] Primary Care Pr ovider Sharee Oliva RD Unavailable [phone] Kaykay Duarte STROBOROMA OPERATOR Primary Care Provider Christiane Rodríguez MD Unavailable +[phone] Luis A Escobedo MD Unavailable +[phone] Chely FernandezC Unavailable [phone] Jing Cadena APRN CHILD HEALTH ASSOCIATE Unavailable [phone] JessicaRadha [facility] Unavailable Luis A Escobedo MD Unavailable Geri LozaC Unavailable Raina Patterson APRN FOUNTAIN SUPERVISOR Unavailable [phone] Encounter Details Date Type Department Care Team (Late st Contact Info) Description 02/11/2022 [facility] Medical Advice [facility] [place] 6[address] [facility] [address] [place] [address] [place] Social [...] Coronavirus/COVID-19? No / Unsure 02/10/2022 4:12 PM PHYS THERAPIST documented as of this encounter Plan of Treatment Not on file documented as of this encounter Visit Diagnoses Not on filedocumented in this encounter Care Teams Speech Language Pathology Assistant Relationship Specialty Start Date End Date Ernestina Martini PCP - General Family Practice 10/12/19 08/18/22 [facility], [place] oD [address] [place], [place] 717267 PCP - General 08/19/22 10/14/22 Kaykay Duarte STROBOROMA OPERATOR [address] [place] [address] [place] 444577 PCP - General 10/15/22 Khris Butt MD 6409 [facility] [address] [place] 994045 Assigned Heart and Vascular Provider 12/14/21 02/14/22 Roderick Morelos MD [address] [place] [address] Cardiovascular Disease 02/03/22 Roderick Morelos MD [address] [place] [address] Assigned Heart and Vascular Provider 02/15/22 07/18/22 Magno Wood MD [address] [place] [address] 208995 Otolaryngology 02/21/22 Sophie Ocasio AuD 909 [place], [place] 144075 [place] Audiology 02/21/22 Parth Ellis MD [address] 833925 Assigned Heart and Vascular Provider 07/19/22 07/25/22 Roderick Morelos MD [address] [place] [address] Assigned Heart and Vascular Provider 07/26/22 08/08/22 Henny Rosales APRN FOUNTAIN SUPERVISOR [address] [place] [address] Assigned Heart and Vascular Provider 08/09/[address] 909 [place], [place] 670505 Registered Dietitian Dietitian, Registered 09/02/22 Christiane Rodríguez MD 420 [facility] 396 [place], [place] 974365 Otolaryngology 11/12/22 Luis A Escobedo MD 420 [facility] 195 [place], [place] 525145 Assigned Surgical Provider 11/01/22 11/28/22 Chely Fernandez PA-C [address] [place] [address] 505385 Assigned Surgical Provider 11/29/22 02/06/23 Jing Cadena APRN CHILD HEALTH ASSOCIATE [address] [place] [address] 450 [place], [place] 998755 Clinical Nurse Specialist Anesthesiology 01/15/23 Radha Lopez, [facility] [address] [place] [address] 560915 Pharmacist Pharmacist 01/16/23 Luis A Escobedo MD [address] [place] [address] Assigned Surgical Provider 02/07/23 04/15/23 Geri Loza PA-C [address] [place] [address] 879295 Assigned Surgical Provider 04/16/23 Raina Patterson APRN FOUNTAIN SUPERVISOR [address] [facility] [address] [place] 548505 Nurse Practitioner Cardiovascular Disease 05/11/23 documented as of this encounter
--- OUTSIDE RECORDS SUMMARY | 2024-01-06 09:42 | XMS_ITS | Encounter Summary ---
Author Organization [place] Address [address] [place] [address]67 Care Team Providers Care Gas Station Clerk Name Role Phone [facility] Primary Care Provider Unavailable Roderick Morelos MD Unavailable [phone] Roderick Morelos MD Unavailable [phone] Magno Wood MD Unavailable [phone] Sophie Ocasio AuD Unavailable +[phone] Parth Ellis MD Unavailable [phone] Roderick Morelos MD Unavailable [phone] Henny Rosales APRN FREIGHT CLERK Unavailable [phone] [facility] Primary Care Pr ovider Sharee Oliva RD Unavailable [phone] Kaykay Duarte CLEANING TEAM MEMBER Primary Care Provider Christiane Rodríguez MD Unavailable [phone] Luis A Escobedo MD Unavailable [phone] Chely Fernandez PA-C Unavailable +[phone] Jing Cadena EMAIL MARKETING SPECIALIST TECHNICAL TRAINING COORDINATOR Unavailable [phone] Radha Lopez [facility] Unavailable [phone] Luis A Escobedo MD Unavailable Geri Loza PA-C Unavailable [phone] UzielkeriRaina APRN FREIGHT CLERK Unavailable Encounter Details Date Type Department Care Team (Late st Contact Info) Description 04/01/2022 [facility] [address] 4th [place] [address] [facility] Social History Tobacco Use Types Packs/Day Years [...] on filedocumented in this encounter Care Teams Gas Station Clerk Relationship Specialty Start Date End Date Ernestina Martini PCP - General Family Practice 10/12/19 08/18/22 [facility], [place] [address] [place] [address] PCP - General 08/19/22 10/14/22 Kaykay Duarte CLEANING TEAM MEMBER [address] [place] [address] PCP - General 10/15/22 Roderick Morelos MD [address] [place] 563045 Cardiovascular Disease 02/03/22 Roderick Morelos MD [address] [place] [address] Assigned Heart and Vascular Provider 02/15/22 07/18/22 Magno [place] MD 420 [facility] 396 [place], [place] 759655 Otolaryngology 02/21/22 Sophie Ocasio AuD [address] [place] [address] 701425 Lead Sales Consultant Audiology 02/21/22 Parth Ellis MD [address] [place], [place] 268335 Assigned Heart and Vascular Provider 07/19/22 07/25/22 Roderick Morelos MD [address] [place] [address] Assigned Heart and Vascular Provider 07/26/22 08/08/22 Henny Rosales, EMAIL MARKETING SPECIALIST FREIGHT CLERK [address] [place] [address] Assigned Heart and Vascular Provider 08/09/22 Sharee Oliva, RD [address] [place] [address] 336735 Registered Dietitian Dietitian, Registered 09/02/22 Christiane Rodríguez MD 420 [facility] 396 [place], [place] 860815 Otolaryngology 11/12/22 Luis A Escobedo MD [address] [place] [address] 177805 Assigned Surgical Provider 11/01/22 11/28/22 Chely Fernandez PA-C 909 [place], [place] 697275 Assigned Surgical Provider 11/29/22 02/06/23 Jing Cadena APRN TECHNICAL TRAINING COORDINATOR 420 [facility] 450 [place], [place] 071715 Clinical Nurse Specialist Anesthesiology 01/15/23 Radha Lopez, [facility] 909 [place], [place] 374735 Pharmacist Pharmacist 01/16/23 Luis A Escobedo MD 420 [facility] 195 [place], [place] 624515 Assigned Surgical Provider 02/07/23 04/15/23 Geri Loza PA-C 909 [place], [place] 021595 Assigned Surgical Provider 04/16/23 Raina [place] APRN FREIGHT CLERK [address] [facility] [address] [place] 855215 Nurse Practitioner Cardiovascular Disease 05/11/23 documented as of this encounter
--- OUTSIDE RECORDS SUMMARY | 2024-01-06 09:42 | XMS_ITS | Encounter Summary ---
Author Organization [place] Address [address] [place] [address]83 Care Team Providers Care Art Sales Consultant Name Role Phone Roderick Morelos MD Unavailable [phone] Magno Wood MD Unavailable [phone] Sophie Ocasio Unavailable +[phone] MONITOR EMPLOYEE WELFARE MANAGER Unavailable [phone] [facility] Primary Care Pr ovider Sharee Oliva RD Unavailable [phone] Kaykay Duarte MODEL DRESSER Primary Care Provider [phone] Christiane Rodríguez MD Unavailable [phone] Luis A Escobedo MD Unavailable +[phone] Chely Fernandez PA-C Unavailable [phone] Jing Cadena APRN NEUROSURGERY SPINE PHYSICIAN Unavailable + [phone] Radha Lopez [facility] Unavailable +[phone] Luis A Escobedo MD Unavailable +[phone] Geri LozaC Unavailable [phone] MONITOR EMPLOYEE WELFARE MANAGER Unavailable [phone] Encounter Details Date Type Department Care Team (Late st Contact Info) Description 08/25/2022 Telephone [facility] [address] [place] [address] Geri Loza PA-C 9 [place] [address] Social History Tobacco Use Types Packs/Day Years [...] on filedocumented in this encounter Care Teams Art Sales Consultant Relationship Specialty Start Date End Date Clinic, [place] Nugent [place] [address] [place], [place] 940447 PCP - General 08/19/22 10/14/22 Kaykay Duarte, MODEL DRESSER [address] [place] [address] PCP - General 10/15/22 Roderick Morelos MD [address] [place], [place] 247265 Cardiovascular Disease 02/03/22 Magno Wood MD [address] [place] [address] 396 [place] [address] Otolaryngology 02/21/22 Sophie Ocasio AuD 909 [place], [place] 338395 Assistant Store Manager Trainee Audiology 02/21/22 Henny Rosales APRN EMPLOYEE WELFARE MANAGER [address] [place] [address] Assigned Heart and Vascular Provider 08/09/[address]09 [place], [place] 259715 Registered Dietitian Dietitian, Registered 09/02/22 Christiane Rodríguez MD [address] [place] [address] 396 [place] [address] Otolaryngology 11/12/22 Luis A Escobedo MD [address] [place] [address] 195 [place], [place] 851995 Assigned Surgical Provider 11/01/22 11/28/22 Chely Fernandez PA-C 909 [place], [place] 460115 Assigned Surgical Provider 11/29/22 02/06/23 Jing Cadena APRN NEUROSURGERY SPINE PHYSICIAN 420 [facility] 450 [place] [address] Clinical Nurse Specialist Anesthesiology 01/15/23 Radha Lopez, [facility] [address] [place] [address] [phone] Pharmacist Pharmacist 01/16/23 Luis A Escobedo MD 420 [facility] 195 [place], [place] 478955 Assigned Surgical Provider 02/07/23 04/15/23 Geri Loza PA-C [address] [place] [address] 723185 Assigned Surgical Provider 04/16/23 Raina Patterson APRN EMPLOYEE WELFARE MANAGER [address] [place] 1917[address] Nurse Practitioner Cardiovascular Disease 05/11/23 documented as of this encounter
--- OUTSIDE RECORDS SUMMARY | 2024-01-06 09:42 | XMS_ITS | Encounter Summary ---
Author Organization [place] Address [address] [place] [address] Care Team Providers Care Machine Clothing Replacer Name Role Phone [facility] Primary Care Provider Unavailable Roderick Morelos MD Unavailable [phone] Roderick Morelos MD Unavailable +[phone] Magno Wood MD Unavailable +[phone] Sophie Ocasio AuD Unavailable +[phone] Parth Ellis MD Unavailable +[phone] Roderick Morelos MD Unavailable [phone] Henny Rosales APRN MANAGER WATER Unavailable +[phone] [facility] Primary Care Pr ovider Sharee Oliva RD Unavailable +[phone] Kaykay Duarte LOAN REVIEW MANAGER Primary Care Provider Christiane Rodríguez MD Unavailable + [phone] Luis A Escobedo MD Unavailable +[phone] Chely Fernandez PA-C Unavailable +[phone] Jing Cadena EXPERIMENTAL DISPLAY BUILDER DRYWALL WORKER Unavailable +[phone] Radha Lopez [facility] Unavailable +[phone] Luis A Escobedo MD Unavailable Geri Loza PA-C Unavailable Raina Patterson APRN MANAGER WATER Unavailable [phone] Encounter Details Date Type Department Care Team (Late st Contact Info) Description 05/26/2022 [facility] Medical Advice [facility] [address] 4th [place] [address] Jessi Mantilla LPN Social History [...] filedocumented in this encounter Care Teams Machine Clothing Replacer Relationship Specialty Start Date End Date Ernestina Martini PCP - General Family Practice 10/12/19 08/18/22 [facility] [place] [place] [address] [place] [address] PCP - General 08/19/22 10/14/22 [place] [address] [place] [address] PCP - General 10/15/22 Roderick Morelos MD [address] [place] 837135 Cardiovascular Disease 02/03/22 Roderick Morelos MD [address] [place] [address] Assigned Heart and Vascular Provider 02/15/22 07/18/22 Magno Wood MD 420 [facility] 396 [place], [place] 933305 Otolaryngology 02/21/22 Sophie Ocasio AuD 909 [place], [place] 135385 Train Planner Audiology 02/21/22 Parth Ellis MD [address] [place], [place] 778[address] Assigned Heart and Vascular Provider 07/19/22 07/25/22 Roderick Morelos MD [address] [place] 628305 Assigned Heart and Vascular Provider 07/26/22 08/08/22 Henny Rosales, EXPERIMENTAL DISPLAY BUILDER MANAGER WATER [address] [place] [address] Assigned Heart and Vascular Provider 08/09/22 Sharee Oliva, ÁNGEL [address] [place] [address] 488985 Registered Dietitian Dietitian, Registered 09/02/22 Christiane Rodríguez MD 420 [facility] 396 [place], [place] 754965 Otolaryngology 11/12/22 Luis A Escobedo MD [address] [place] [address] 985045 Assigned Surgical Provider 11/01/22 11/28/22 Chely Fernandez PA-C 909 [place], [place] 841055 Assigned Surgical Provider 11/29/22 02/06/23 Jing Cadena APRN DRYWALL WORKER 420 [facility] 450 [place] [address] Clinical Nurse Specialist Anesthesiology 01/15/23 Radha Lopez, [facility] 9 [place], [place] 277875 Pharmacist Pharmacist 01/16/23 Luis A Escobedo MD 420 [facility] 195 [place], [place] 261905 Assigned Surgical Provider 02/07/23 04/15/23 Geri Loza PA-C 909 [place], [place] 475095 Assigned Surgical Provider 04/16/23 Raina Patterson, GINA MANAGER WATER [address] [place] 941475 Nurse Practitioner Cardiovascular Disease 05/11/23 documented as of this encounter
--- OUTSIDE RECORDS SUMMARY | 2024-01-06 09:42 | XMS_ITS | Encounter Summary ---
Author Organization [place] Address [address] [place] [address] 89372 Care Team Providers Care Civil Engineering Director Name Role Phone [facility] Primary Care Provider Unavailable Roderick Morelos MD Unavailable [phone] Roderick Morelos MD Unavailable +[phone] Magno Wood MD Unavailable [phone] Sophie Ocasio AuD Unavailable +[phone] Parth Ellis MD Unavailable +[phone] Roderick Morelos MD Unavailable [phone] Henny Rosales APRN ARCHIVAL STUDIES PROFESSOR Unavailable +[phone] [facility] Primary Care Pr ovider Sharee Oliva RD Unavailable [phone] Kaykay Duarte WRAPPER SORTER Primary Care Provider Christiane Rodríguez MD Unavailable + [phone] Luis A Escobedo MD Unavailable +[phone] Chely Fernandez PA-C Unavailable +[phone] Jing Cadena GLAZE WIPER ADMINISTRATIVE EXECUTIVE Unavailable [phone] Radha Lopez [facility] Unavailable +[phone] Luis A Escobedo MD Unavailable Geri Loza PA-C Unavailable Raina Patterson APRN ARCHIVAL STUDIES PROFESSOR Unavailable Encounter Details Date Type Department Care Team (Late st Contact Info) Description 05/14/2022 [place] Medical Advice [facility] [address] 4th [place] [address] Jessi Mantilla LPN Social History [...] on filedocumented in this encounter Care Teams Civil Engineering Director Relationship Specialty Start Date End Date Ernestina Martini PCP - General Family Practice 10/12/19 08/18/22 [facility] [place] [address] [place] [address] PCP - General 08/19/22 10/14/22 [place] [address] [place] [address] PCP - General 10/15/22 Roderick Morelos MD [address] [place] 519035 Cardiovascular Disease 02/03/22 Roderick Morelos MD [address] [place] [address] Assigned Heart and Vascular Provider 02/15/22 07/18/22 Magno Wood MD 420 [facility] 396 [place], [place] 504435 Otolaryngology 02/21/22 Sophie Ocasio AuD 909 [place], [place] 654065 Signal Wirer Audiology 02/21/22 Parth Ellis MD [address] [place], [place] 977[address] Assigned Heart and Vascular Provider 07/19/22 07/25/22 Roderick Morelos MD [address] [place] 800485 Assigned Heart and Vascular Provider 07/26/22 08/08/22 Henny Rosales, GLAZE WIPER ARCHIVAL STUDIES PROFESSOR [address] [place] [address] Assigned Heart and Vascular Provider 08/09/22 Sharee Oliva, ÁNGEL [address] [place] [address] 995725 Registered Dietitian Dietitian, Registered 09/02/22 Christiane Rodríguez MD 420 [facility] 396 [place], [place] 100485 Otolaryngology 11/12/22 Luis A Escobedo MD [address] [place] [address] 744625 Assigned Surgical Provider 11/01/22 11/28/22 Chely Fernandez PA-C 909 [place], [place] 208875 Assigned Surgical Provider 11/29/22 02/06/23 Jing Cadena APRN ADMINISTRATIVE EXECUTIVE 420 [facility] 450 [place] [address] Clinical Nurse Specialist Anesthesiology 01/15/23 Radha Lopez, [facility] 9 [place], [place] 192475 Pharmacist Pharmacist 01/16/23 Luis A Escobedo MD 420 [facility] 195 [place], [place] 810425 Assigned Surgical Provider 02/07/23 04/15/23 Geri Loza PA-C 909 [place], [place] 864825 Assigned Surgical Provider 04/16/23 Raina Patterson, GINA ARCHIVAL STUDIES PROFESSOR [address] [place] 671185 Nurse Practitioner Cardiovascular Disease 05/11/23 documented as of this encounter
--- OUTSIDE RECORDS SUMMARY | 2024-01-06 09:42 | XMS_ITS | Encounter Summary ---
Author Organization [place] Address [address] [place] [address] Care Team Providers Care Canal Driver Name Role Phone Barrington Agudelo PA-C Primary Care Provider [phone] Magno Wood MD Unavailable [phone] [place] [facility] Primary Care Provider Unavailable Parth Ellis MD Unavailable +[phone] Tati Ayala MD Unavailable +[phone] Khris Butt MD Unavailable +[phone] MorelosRoderick nunes MD Unavailable [phone] Roderick Morelos MD Unavailable [phone] Magno Wood MD Unavailable [phone] Sophie Ocasio Unavailable +[phone] Parth Ellis MD Unavailable +[phone] MorelosRoderick nunes MD Unavailable [phone] Henny Rosales APRN ACIDIZER HELPER Unavailable [phone] [facility] Primary Care Pr ovider Sharee Oliva RD Unavailable [phone] Kaykay Duarte NP Primary Care Provider [phone] Christiane Rodríguez MD Unavailable +[phone] Luis A Escobedo MD Unavailable + [phone] Chely Fernandez PA-C Unavailable +[phone] Cadena Jing Susie [facility] Unavailable + [phone] Radha Lopez [facility] Unavailable +[phone] Luis A Escobedo MD Unavailable + [phone] Geri Loza PA-C Unavailable +[phone] Yesenia Raina [facility] ACIDIZER HELPER Unavailable Encounter Details Date Type Department Care Team (Late st Contact Info) Description 05/07/2011 Office Visit-[facility] [address] [facility] [address] [place] [address] Reji Li MD 6[address] [facility] [address] [place] [address] Social History Tobacco Use Types [...] was 89. ALT was 17. From her structural architect, her electrolytes in October werenormal. Creatinine was [...] Mother - Age 34, cancer-breast; Half-Brother - [place]; Sister 1 - CAD; SOCIAL HISTORY Alcohol [...] Indicated Resolved Time Rule Out COVID-19 03/19/2020 03/19/202003/19/2020 6:22 PM WOOD BORER COVID-19 03/19/2020 03/19/2020 04/09/2020 11:3 9 PM WOOD BORER Rule Out COVID-19 06/19/2021 06/19/2021 06/19/2021 1:37 AM CDT Rule Out COVID-19 10/29/2021 10/29/2021 10/29/2021 1:07 AM CDT documented as of this encounter Care Teams Canal Driver Relationship Specialty Start Date End Date Barrington Agudelo PA-C [facility] [address] [place] [address] PCP - General 05/04/12 10/11/19 Ernestina Martini [address] [facility] 396 [place] [address] PCP - General Family Practice 10/12/19 08/18/22 [place] [address] [place] [address] PCP - General 08/19/22 10/14/22 Kaykay Duarte LEGAL COMPLIANCE OFFICER [address] [place], [place] 404157 PCP - General 10/15/22 Magno Wood MD [address] 662105 Otolaryngology 05/29/15 08/02/17 Parth Ellis MD [address] [place] 147465 Assigned Heart and Vascular Provider 01/13/20 12/13/21 Tati Ayala MD [address] [place], [place] 083300 Assigned Endocrinology Provider 01/13/20 12/29/20 Khris Butt MD [address] [place] [address] [place] [address] Assigned Heart and Vascular Provider 12/14/21 02/14/22 Roderick Morelos MD [address] [place] [address] Cardiovascular Disease 02/03/22 Roderick Morelos MD [address] [place] [address] Assigned Heart and Vascular Provider 02/15/22 07/18/22 Magno Wood MD [address] [place] [address] Otolaryngology 02/21/22 Sophie Ocasio AuD [address] [place] [address] 443985 Community Association Manager Audiology 02/21/22 Parth Ellis MD [address] [place] [address] Assigned Heart and Vascular Provider 07/19/22 07/25/22 Roderick Morelos MD [address] [place] [address] Assigned Heart and Vascular Provider 07/26/22 08/08/22 Henny Rosales, ALUMINUM SHINGLE ROOFER ACIDIZER HELPER [address] [place] [address] Assigned Heart and Vascular Provider 08/09/[address]09 [place], [place] 882755 Registered Dietitian Dietitian, Registered 09/02/22 Christiane Rodríguez MD 420 [facility] 396 [place], [place] 101695 Otolaryngology 11/12/22 Luis A Escobedo MD [address] [place] [address] 763795 Assigned Surgical Provider 11/01/22 11/28/22 Chely Fernandez PA-C [address] [place] [address] 986835 Assigned Surgical Provider 11/29/22 02/06/23 Jing Cadena, ALUMINUM SHINGLE ROOFER REAL ESTATE OFFICE MANAGER [address] [place] [address] 450 [place], [place] 914555 Clinical Nurse Specialist Anesthesiology 01/15/23 Radha Lopez, [facility] [address] [place] [address] 602905 Pharmacist Pharmacist 01/16/23 Luis A Escobedo MD [address] [place] [address] 080935 Assigned Surgical Provider 02/07/23 04/15/23 Geri Loza PA-C [address] [place] [address] Assigned Surgical Provider 04/16/23 Raina Patterson APRN ACIDIZER HELPER [address] [place] [address] Nurse Practitioner Cardiovascular Disease 05/11/23 documented as of this encounter
--- OUTSIDE RECORDS SUMMARY | 2024-01-06 09:42 | XMS_ITS | Encounter Summary ---
Author Organization [place] Address [address] [place] [address] Care Team Providers Care Staff Genetic Counselor Name Role Phone Roderick Morelos MD Unavailable [phone] Magno Wood MD Unavailable [phone] Sophie Ocasio Unavailable +[phone] Henny Rosales BOXING INSTRUCTOR RN INTERVENTIONAL Unavailable +[phone] [facility] Primary Care Pr ovider Sharee Oliva RD Unavailable [phone] Kaykay Duarte FLOWER SHOP MANAGER Primary Care Provider [phone] Christiane Rodríguez MD Unavailable [phone] Luis A Escobedo MD Unavailable +[phone] Chely Fernandez PA-C Unavailable [phone] Jing Cadena APRN LABORATORY MECHANICAL TECHNICIAN Unavailable + [phone] Radha Lopez [facility] Unavailable +[phone] Luis A Escobedo MD Unavailable +[phone] Geri LozaC Unavailable [phone] Raina Patterson BOXING INSTRUCTOR RN INTERVENTIONAL Unavailable +[phone] Encounter Details Date Type Department Care Team (Late st Contact Info) Description 08/19/2022 [facility] Medical Advice [facility] [address] [place] [address] Tanya Larsen RN Social History [...] filedocumented in this encounter Care Teams Staff Genetic Counselor Relationship Specialty Start Date End [place], [place] [address] [place] [address] PCP - General 08/19/22 10/14/22 Kaykay Duarte FLOWER SHOP MANAGER [address] [place] [address] [facility] [place] [address] PCP - General 10/15/22 Roderick Morelos MD [address] [place], [place] 987445 Cardiovascular Disease 02/03/22 Magno Wood MD [address] [place] [address] 396 [place], [place] 705905 Otolaryngology 02/21/22 Sophie Ocasio, AuD [address] [place] [address] Telecommunications Operator Audiology 02/21/22 Henny Rosales, BOXING INSTRUCTOR RN INTERVENTIONAL [address] [place] [address] Assigned Heart and Vascular Provider 08/09/[address] [place] [address] 457805 Registered Dietitian Dietitian, Registered 09/02/22 Christiane Rodríguez MD [address] [place] [address] 396 [place], [place] 045785 Otolaryngology 11/12/22 Luis A Escobedo MD [address] [place] [address] 195 [place], [place] 850485 Assigned Surgical Provider 11/01/22 11/28/22 Chely Fernandez PA-C [address] [place] [address] 214525 Assigned Surgical Provider 11/29/22 02/06/23 Jing Cadena, BOXING INSTRUCTOR LABORATORY MECHANICAL TECHNICIAN 420 [facility] 450 [place], [place] 296385 Clinical Nurse Specialist Anesthesiology 01/15/23 Radha Lopez [facility] [address] [place] [address] 035395 Pharmacist Pharmacist 01/16/23 Luis A Escobedo MD [address] [place] [address] 195 [place] [address] Assigned Surgical Provider 02/07/23 04/15/23 Geri Loza PA-C 9 [place] [address] Assigned Surgical Provider 04/16/23 Raina Patterson APRN RN INTERVENTIONAL [address] [place] [address] Nurse Practitioner Cardiovascular Disease 05/11/23 documented as of this encounter
--- OUTSIDE RECORDS SUMMARY | 2024-01-06 09:43 | XMS_ITS | Encounter Summary ---
Author Organization [place] Address [address] [place] [address] Care Team Providers Care Dye Range Operator Cloth Name Role Phone Edda Agudelo PA-C Primary Care Provider +[phone] Magno Wood MD Unavailable [phone] [facility] Primary Care Provider Unavailable Parth Ellis MD Unavailable +[phone] Tati Ayala MD Unavailable +[phone] Khris Butt MD Unavailable +[phone] MorelosRoderick nunes MD Unavailable +[phone] Roderick Morelos MD Unavailable +[phone] Magno Wood MD Unavailable +[phone] Sophie Ocasio Unavailable +[phone] Parth Ellis MD Unavailable +[phone] MorelosRoderick nunes MD Unavailable +[phone] Henny Rosales APRN DEMAND EQUIPMENT REPAIRER Unavailable [phone] [facility] Primary Care Pr ovider Sharee Oliva RD Unavailable [phone] Kaykay Duarte NP Primary Care Provider [phone] Christiane Rodríguez MD Unavailable +[phone] Luis A Escobedo MD Unavailable + [phone] Chely Fernandez PA-C Unavailable +[phone] CadenaJing APRN [facility] Unavailable + [phone] Radha Lopez [facility] Unavailable +[phone] Luis A Escobedo MD Unavailable +[phone] Geri Loza PA-C Unavailable +[phone] Raina Patterson GINA DEMAND EQUIPMENT REPAIRER Unavailable +[phone] Encounter Details Date Type Department Care Team (Late st Contact Info) Description 12/06/2004 Office Visit-[facility] [address] [id number] [place] [address] Unknown, DoctorMD Social History Tobacco [...] old Referring Physician: BOY WATSON Referring Clinic: [facility] CURRENT DIAGNOSES 1. - Hypercholesterolemia, 272.0 [...] and labs HISTORY OF PRESENT ILLNESS </B><FONT FACE=Equipment Cleaner And Tester New> Jimbo Owens is a pleasant, 34-year-old [...] cholesterol 194, ratio 5.4, ALT 14. Her [place] 10-year risk score is 1%. According to that, her LDL cholesterol goal should be less than 160, although given her risk factors and family history, she may certainly benefit long term acute care registered nurse from an LDL cholesterol between 100-120. Jimbo, [...] mcg/inh and Zocor 20 mg IMPRESSIONS/PLAN </B><FONT FACE=Equipment Cleaner And Tester New>1) Family history of coronary artery disease [...] Out COVID-19 03/19/2020 03/19/2020 03/19/2020 6:22 PM NEWS CAMERA OPERATOR COVID-19 03/19/2020 03/19/2020 04/09/2020 11:3 9 PM NEWS CAMERA OPERATOR Rule Out COVID-19 06/19/2021 06/19/2021 06/19/2021 1:37 AM CDT Rule Out COVID-19 10/29/2021 10/29/2021 10/29/2021 1:07 AM CDT documented as of this encounter Care Teams Dye Range Operator Cloth Relationship Specialty Start Date End Date dEda Agudelo PA-C [facility] [address] [place] [address] [address] PCP - General 05/04/12 10/11/19 Ernestina Martini [address] [address] PCP - General Family Practice 10/12/19 08/18/22 [facility] Jovanna Baldwyn [address] [place] [address] PCP - General 08/19/22 10/14/22 Kaykay Duarte, COLLAR STITCHER [address] [place], [place] 600317 PCP - General 10/15/22 Magno Wood MD [address] 617055 Otolaryngology 05/29/15 08/02/17 Parth Ellis MD [address] [place] [address] Assigned Heart and Vascular Provider 01/13/20 12/13/21 Tati Ayala MD [address] [place], [place] 344720 Assigned Endocrinology Provider 01/13/20 12/29/20 Khris Butt MD [address] [place] 973095 Assigned Heart and Vascular Provider 12/14/21 02/14/22 Roderick Morelos MD [address] [place] [address] MD Cardiovascular Disease 02/03/22 Roderick Morelos MD [address] [place] [address] Assigned Heart and Vascular Provider 02/15/22 07/18/22 Magno Wood MD [address] [place] [address] 396 [place], [place] 714155 Otolaryngology 02/21/22 Sophie Ocasio AuD 909 [place], [place] 125615 Lip Reading Teacher Audiology 02/21/22 Parth Ellis MD [address] [place] 977485 Assigned Heart and Vascular Provider 07/19/22 07/25/22 Roderick Morelos MD [address] [place] [address] Assigned Heart and Vascular Provider 07/26/22 08/08/22 Henny Rosales APRN DEMAND EQUIPMENT REPAIRER [address] [place] [address] Assigned Heart and Vascular Provider 08/09/[address] [place] [address] 356105 Registered Dietitian Dietitian, Registered 09/02/22 Christiane Rodríguez MD [address] [place] [address] 396 [place], [place] 836695 Otolaryngology 11/12/22 Luis A Escobedo MD [address] [place] [address] 603795 Assigned Surgical Provider 11/01/22 11/28/22 Chely Fernandez PA-C [address] [place] [address] 555115 Assigned Surgical Provider 11/29/22 02/06/23 Jing Cadena APRN ARCHITECTURAL PROJECT CAPTAIN [address] [place] [address] 450 [place], [place] 414765 Clinical Nurse Specialist Anesthesiology 01/15/23 Radha Lopez, [facility] [address] [place] [address] Pharmacist Pharmacist 01/16/23 Luis A Escobedo MD [address] [place] [address] 195 [place], [place] 977875 Assigned Surgical Provider 02/07/23 04/15/23 Geri Loza PA-C [address] [place] [address] Assigned Surgical Provider 04/16/23 Raina Patterson APRN [facility] [address] [place] [address] Nurse Practitioner Cardiovascular Disease 05/11/23 documented as of this encounter
--- OUTSIDE RECORDS SUMMARY | 2024-01-06 09:43 | XMS_ITS | Encounter Summary ---
Author Organization [place] Address [address] [place] [address] 15562 Care Team Providers Care Fabrication Machine Operator Name Role Phone Edda Agudelo PA-C Primary Care Provider +- [phone] Magno Wood MD Unavailable +[phone] [place] [facility] Primary Care Provider Unavailable Parth Ellis MD Unavailable +[phone] Tati Ayala MD Unavailable +[phone] Khris Btut MD Unavailable +[phone] MorelosRoderick nunes MD Unavailable +[phone] Roderick Morelos MD Unavailable +[phone] Magno Wood MD Unavailable [phone] Sophie Ocasio Unavailable +[phone] Parth Ellis MD Unavailable +[phone] MorelosRoderick nunes MD Unavailable +[phone] Henny Rosales APRN GLASS OR MIRROR INSPECTOR Unavailable +[phone] [facility] Primary Care Pr ovider Sharee Oliva RD Unavailable [phone] Kaykay Duarte NP Primary Care Provider Christiane Rodríguez MD Unavailable +[phone] Luis A Escobedo MD Unavailable + [phone] Chely Fernandez PA-C Unavailable +[phone] Jing Cadena FUNERAL HOME DIRECTOR OPHTHALMIC DISPENSER Unavailable + [phone] Radha Lopez [facility] Unavailable +[phone] Luis A Escobedo MD Unavailable + [phone] Geri Loza PA-C Unavailable +[phone] Raina Patterson FUNERAL HOME DIRECTOR GLASS OR MIRROR INSPECTOR Unavailable [phone] Encounter Details Date Type Department Care Team (Late st Contact Info) Description 03/31/2006 Office Visit-[facility] [place] 6405 [facility] [address] [place] [address] Imani Ott, FUNERAL HOME DIRECTOR GLASS OR MIRROR INSPECTOR 6405 [facility] [address] [place] [id number] Social History Tobacco Use Types Packs/Day Years Used Date Smoking Tobacco: Never Assessed Sex and Gender Information Value Date Recorded Sex Assigned at Not on file Gender Identity Not on file Sexual Orientation Not on file documented as of this encounter Progress Notes * Imani Ott NP - 04/02/2006 12:05 PM CST Progress Note Created by: Imani Ott N.P. DATE: 03/31/2006 JIMBO OWENS DATE OF : 1970 AGE: [age] years old Referring Physician: BOY WATSON Referring Clinic: [facility] CURRENT DIAGNOSES 1. - Hypercholesterolemia, 272.0 [...] delightful 35-year-old female who presents to the [facility] today for a follow-up visit [...] Half-Brother - [place]; Sister 1 - CAD; <FONT COLOR=#[id number]><FONT POINT=10>CARDIAC RISK FACTORS Tobacco Abuse: negative; Family [...] lives with and children; Place of - [place]; Hours Worked - 30 hours per week; [...] participate in this patient's care. Imani Ott, N.P. documented in this encounter Plan of Treatment Not on file documented as of this encounter Visit Diagnoses Not on filedocumented in this encounter Additional Health Concerns Infection Onset Date Last Indicated Resolved Time Rule Out COVID-19 03/19/2020 03/19/2020 03/19/2020 6:22 PM FURNACE INSTALLER COVID-19 03/19/2020 03/19/2020 04/09/2020 11:3 9 PM FURNACE INSTALLER Rule Out COVID-19 06/19/2021 06/19/2021 06/19/2021 1:37 AM CDT Rule Out COVID-19 10/29/2021 10/29/2021 10/29/2021 1:07 AM CDT documented as of this encounter Care Teams Fabrication Machine Operator Relationship Specialty Start Date End Date Edda Agudelo PA-C [facility] [address] [place] [address] PCP - General 05/04/12 10/11/19 Ernestina Martini [address] [facility] 396 [place] [address] PCP - General Family Practice 10/12/19 08/18/22 [facility] [address] [place], [place] 214567 PCP - General 08/19/22 10/14/22 [place] [address] [place] [address] PCP - General 10/15/22 Magno Wood MD [address] 116[address] Otolaryngology 05/29/15 08/02/17 Parth Ellis MD [address] [place] [address] Assigned Heart and Vascular Provider 01/13/20 12/13/21 Tati Ayala MD [address] [place], [place] 789120 Assigned Endocrinology Provider 01/13/20 12/29/20 Khris Butt MD [address] [facility] [address] [place] [address] Assigned Heart and Vascular Provider 12/14/21 02/14/22 Roderick Morelos MD [address] [facility] [place] 466965 Cardiovascular Disease 02/03/22 Roderick Morelos MD [address] [facility] [place] [address] Assigned Heart and Vascular Provider 02/15/22 07/18/22 Magno Wood MD [address] [place] [address] Otolaryngology 02/21/22 Sophie Ocasio AuD [address] [place] [address] [id number] Landfill Gas Collection System Operator Audiology 02/21/22 Parth Ellis MD [address] [place] 772135 Assigned Heart and Vascular Provider 07/19/22 07/25/22 Roderick Morelos MD [address] 218805 Assigned Heart and Vascular Provider 07/26/22 08/08/22 Henny Rosales APRN GLASS OR MIRROR INSPECTOR [address] [facility] [place] [phone] Assigned Heart and Vascular Provider 08/09/[address] [place] [address] 926865 Registered Dietitian Dietitian, Registered 09/02/22 Christiane Rodríguez MD [address] [place] [address] 396 [place], [place] 073785 Otolaryngology 11/12/22 Luis A Escobedo MD [address] [place] [address] 720465 Assigned Surgical Provider 11/01/22 11/28/22 Chely Fernandez PA-C [address] [place] [address] 466845 Assigned Surgical Provider 11/29/22 02/06/23 Jing Cadena, FUNERAL HOME DIRECTOR OPHTHALMIC DISPENSER [address] [place] [address] 450 [place], [place] 583385 Clinical Nurse Specialist Anesthesiology 01/15/23 Radha Lopez, [facility] [address] [place] [address] 710175 Pharmacist Pharmacist 01/16/23 Luis A Escobedo MD [address] [place] [address] 818095 Assigned Surgical Provider 02/07/23 04/15/23 Geri Loza PA-C [address] [place] [address] 577605 Assigned Surgical Provider 04/16/23 Raina Patterson, GINA GLASS OR MIRROR INSPECTOR [address] [facility] [address] [place] [address] [phone] Nurse Practitioner Cardiovascular Disease 05/11/23 documented as of this encounter
--- OUTSIDE RECORDS SUMMARY | 2024-01-06 09:43 | XMS_ITS | Encounter Summary ---
Author Organization [place] Address [address] [place] [address] Care Team Providers Care Oil Expert Name Role Phone Edda Agudelo PA-C Primary Care Provider +- [phone] Magno Wood MD Unavailable [phone] [place] [facility] Primary Care Provider Unavailable Parth Ellis MD Unavailable +[phone] Tati Ayala MD Unavailable +[phone] Khris Butt MD Unavailable +[phone] MorelosRoderick nunes MD Unavailable [phone] Roderick Morelos MD Unavailable [phone] Magno Wood MD Unavailable [phone] Sophie Ocasio Unavailable +[phone] Parth Ellis MD Unavailable +[phone] MorelosRoderick nunes MD Unavailable +[phone] Henny Rosales APRN COLLEGE PRESIDENT Unavailable [phone] [facility] Primary Care Pr ovider Sharee Oliva RD Unavailable [phone] Kaykay Duarte NP Primary Care Provider Christiane Rodríguez MD Unavailable +[phone] Luis A Escobedo MD Unavailable + [phone] Chely Fernandez PA-C Unavailable +[phone] Jing Cadena APRN [facility] Unavailable + [phone] Radha Lopez [facility] Unavailable [phone] Luis A Escobedo MD Unavailable + [phone] Geri Loza PA-C Unavailable +[phone] Raina Patterson GINA COLLEGE PRESIDENT Unavailable [phone] Encounter Details Date Type Department Care Team (Late st Contact Info) Description 10/20/2001 Office Visit-[facility] Heart [place] [address] [place] [address] Unknown, DoctorMD Social History Tobacco [...] Out COVID-19 03/19/2020 03/19/2020 03/19/2020 6:22 PM METAL CASTER COVID-19 03/19/2020 03/19/2020 04/09/2020 11:3 9 PM METAL CASTER Rule Out COVID-19 06/19/2021 06/19/2021 06/19/2021 1:37 AM CDT Rule Out COVID-19 10/29/2021 10/29/2021 10/29/2021 1:07 AM CDT documented as of this encounter Care Teams Oil Expert Relationship Specialty Start Date End Date Edda Agudelo PA-C [facility] [address] [address] PCP - General 05/04/12 10/11/19 [facility] [address] [address] PCP - General Family Practice 10/12/19 08/18/22 [facility] [address] [place], [place] 028847 PCP - General 08/19/22 10/14/22 [place] [address] [place], [place] 988607 PCP - General 10/15/22 Magno Wood MD [address] 816125 MD Otolaryngology 05/29/15 08/02/17 Parth Ellis MD [address] [place] 168995 Assigned Heart and Vascular Provider 01/13/20 12/13/21 Tati Ayala MD [address] [place], [place] 804250 Assigned Endocrinology Provider 01/13/20 12/29/20 Khris Butt MD [address] [facility] [address] [place] [address] Assigned Heart and Vascular Provider 12/14/21 02/14/22 Roderick Morelos MD [address] [place] [address] Cardiovascular Disease 02/03/22 Roderick Morelos MD [address] [place] [address] Assigned Heart and Vascular Provider 02/15/22 07/18/22 Magno Wood MD [address] [place] [address] Otolaryngology 02/21/22 Sophie Ocasio AuD [address] [place] [address] 252175 Inpatient Pharmacist Audiology 02/21/22 Parth Ellis MD [address] [place] 341775 Assigned Heart and Vascular Provider 07/19/22 07/25/22 Roderick Morelos MD [address] [place] [address] Assigned Heart and Vascular Provider 07/26/22 08/08/22 Henny Rosales APRN COLLEGE PRESIDENT [address] [place] [address] Assigned Heart and Vascular Provider 08/09/[address] [place], [place] 509555 Registered Dietitian Dietitian, Registered 09/02/22 Christiane Rodríguez MD 420 [facility] 396 [place], [place] [address]995 Otolaryngology 11/12/22 Luis A Escobedo MD 420 [facility] 195 [place], [place] 507315 Assigned Surgical Provider 11/01/22 11/28/22 Chely Fernandez PA-C 909 [place], [place] 902995 Assigned Surgical Provider 11/29/22 02/06/23 Jing Cadena APRN GREENSKEEPER 420 [facility] 450 [place], [place] 953035 Clinical Nurse Specialist Anesthesiology 01/15/23 Radha Lopez, [facility] [address] [place] [address] Pharmacist Pharmacist 01/16/23 uLis A Escobedo MD [address] [place] [address] Assigned Surgical Provider 02/07/23 04/15/23 Geri Loza PA-C [address] [place] [address] Assigned Surgical Provider 04/16/23 Raina Patterson APRN COLLEGE PRESIDENT [address] [place] [address] Nurse Practitioner Cardiovascular Disease 05/11/23 documented as of this encounter
--- OUTSIDE RECORDS SUMMARY | 2024-01-06 09:43 | XMS_ITS | Encounter Summary ---
Author Organization [facility] Address [address] [place] [address] Care Team Providers Care Senior Business Objects Developer Name Role Phone Edda Agudelo PA-C Primary Care Provider +- [phone] Magno Wood MD Unavailable [phone] [place] [facility] Primary Care Provider Unavailable Parth Ellis MD Unavailable +[phone] Tati Ayala MD Unavailable +[phone] Khris Butt MD Unavailable +[phone] MorelosRoderick nunes MD Unavailable [phone] Roderick Morelos MD Unavailable [phone] Magno Wood MD Unavailable [phone] Sophie Ocasio Unavailable +[phone] Parth Ellis MD Unavailable +[phone] MorelosRoderick nunes MD Unavailable +[phone] Henny Rosales APRN HORTICULTURAL SPECIALTY GROWER Unavailable [phone] [facility] Pr ovider Sharee Oliva RD Unavailable [phone] Kaykay Duarte NP Primary Care Provider Christiane Rodríguez MD Unavailable +[phone] Luis A Escobedo MD Unavailable +[phone] Chely Fernandez PA-C Unavailable +[phone] Cadena Jing Susie [facility] Unavailable + [phone] Radha Lopez [facility] Unavailable [phone] Luis A Escobedo MD Unavailable +[phone] Geri Loza PA-C Unavailable +[phone] Yesenia Raina [facility] Unavailable [phone] Encounter Details Date Type Department Care Team (Late st Contact Info) Description 12/16/2005 Office Visit-[facility] Heart [facility] 6[address] [facility] [address] [place] [address] Reji Li MD 6405 [facility] [address] [place] [address] Social History Tobacco Use Types [...] BOY WATSON Ref[facility] CURRENT DIAGNOSES 1. 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 She just had cholesterols done at [facility] yesterday. She will call us next week [...] valve. She just had cholesterols done at [facility] yesterday. She will call us next week for the results to determine if weneed to increase her Vytorin. Total consult time: 25 minutes, greater than 50% counseling. Reji Li M.D./[email or web address]/[id number] cc:Luis A Vincent M.D. documented in this encounter Plan of Treatment Not on file documented as of this encounter Visit Diagnoses Not on filedocumented in this encounter Additional Health Concerns Infection Onset Date Last Indicated Resolved Time Rule Out COVID-19 03/19/2020 03/19/2020 03/19/2020 6:22 PM CYBER ANALYST COVID-19 03/19/2020 03/19/2020 04/09/2020 11:3 9 PM CYBER ANALYST Rule Out COVID-19 06/19/2021 06/19/2021 06/19/2021 1:37 AM CDT Rule Out COVID-19 10/29/2021 10/29/2021 10/29/2021 1:07 AM CDT documented as of this encounter Care Teams Senior Business Objects Developer Relationship Specialty Start Date End Date Edda Agudelo PA-C [facility] [address] [place] [address] PCP - General 05/04/12 10/11/19 Ernestina Martini [address] [place] [facility] 396 [place] [address] PCP - General Family Practice 10/12/19 08/18[facility]22 [facility] [address] [place] [address] PCP - General 08/19/22 10/14/22 [place] [address] [place] [address] PCP - General 10/15/22 Magno Wood MD 420 [facility] 396 [place] [address] Otolaryngology 05/29/15 08/02/17 Parth Ellis MD [address] [place] [address] Assigned Heart and Vascular Provider 01/13/20 12/13/21 Tati Ayala MD [address] [place], [place] 513130 Assigned Endocrinology Provider 01/13/20 12/29/20 Khris Butt MD [address] [facility] [address] [place] [address] Assigned Heart and Vascular Provider 12/14/21 02/14/22 Roderick Morelos MD [address] [place] [address] Cardiovascular Disease 02/03/22 Roderick Morelos MD [address] [place] [address] Assigned Heart and Vascular Provider 02/15/22 07/18/22 Magno Wood MD [address] [place] [address] 396 [place], [place] 758375 Otolaryngology 02/21/22 Sophie Ocasio AuD 909 [place], [place] 416105 Visual Merchandise Manager Audiology 02/21/22 Parth Ellis MD [address] [place] 702705 Assigned Heart and Vascular Provider 07/19/22 07/25/22 Roderick Morelos MD [address] [place] 647515 Assigned Heart and Vascular Provider 07/26/22 08/08/22 Henny Rosales, ORDER TO DELIVERY SUPERVISOR HORTICULTURAL SPECIALTY GROWER [address] [place] [phone] Assigned Heart and Vascular Provider 08/09/[address] [place], [place] 917075 Registered Dietitian Dietitian, Registered 09/02/22 Christiane Rodríguez MD 420 [facility] 396 [place], [place] 625315 Otolaryngology 11/12/22 Luis A Escobedo MD [address] [place] [address] 195 [place], [place] 485455 Assigned Surgical Provider 11/01/22 11/28/22 Chely Fernandez PA-C [address] [place] [address] 033655 Assigned Surgical Provider 11/29/22 02/06/23 Jing Cadena APRN RELEASE COORDINATOR [address] [place] [address] 450 [place], [place] 141925 Clinical Nurse Specialist Anesthesiology 01/15/23 Radha Lopez, [facility] [address] [place] [address] 502875 Pharmacist Pharmacist 01/16/23 Luis A Escobedo MD [address] [place] [address] 387105 Assigned Surgical Provider 02/07/23 04/15/23 Geri Loza PA-C [address] [place] [address] 125365 Assigned Surgical Provider 04/16/23 Raina Patterson APRN HORTICULTURAL SPECIALTY GROWER [address] [facility] [address] [place] 434115 Nurse Practitioner Cardiovascular Disease 05/11/23 documented as of this encounter
--- OUTSIDE RECORDS SUMMARY | 2024-01-06 09:43 | XMS_ITS | Encounter Summary ---
Author Organization [place] Address [address] [place] [address] Care Team Providers Care Reeling Machine Setup Operator Name Role Phone Edda Agudelo PA-C Primary Care Provider +- [phone] Magno Wood MD Unavailable [phone] [place] [facility] Primary Care Provider Unavailable Parth Ellis MD Unavailable +[phone] Tati Ayala MD Unavailable [phone] Khris Butt MD Unavailable +[phone] MorelosRoderick nunes MD Unavailable [phone] Roderick Morelos MD Unavailable [phone] Magno Wood MD Unavailable [phone] Sophie Ocasio Unavailable +[phone] Parth Ellis MD Unavailable +[phone] MorelosRoderick nunes MD Unavailable [phone] Henny Rosales APRN MACHINE CLOTHING MAN Unavailable [phone] [facility] Primary Care Pr ovider Sharee Oliva RD Unavailable [phone] Kaykay Duarte NP Primary Care Provider Christiane Rodríguez MD Unavailable +[phone] Luis A Escobedo MD Unavailable + [phone] Chely Fernandez PA-C Unavailable +[phone] Cadena Jing Susie [facility] Unavailable + [phone] Radha Lopez [facility] Unavailable [phone] Luis A Escobedo MD Unavailable +[phone] [place] Geri Gaytan PA-C Unavailable +[phone] Yesenia Raina [facility] Unavailable Encounter Details Date Type Department Care Team (Late st Contact Info) Description 02/08/2007 Office Visit-[facility] Heart [facility] 6405 [facility] [address] [place] [address] Reji Li MD 6405 [facility] [address] [place] [address] Social History Tobacco Use Types [...] Half-Brother - [place]; Sister 1 - CAD; SOCIAL HISTORY Alcohol Use - socially, wine, mixed drinks and (3x/yr); Smoking - never smoked; Diet - weight Reduction Diet and caffeine use-1-2 per day; Exercise - some exercise, swimming and walking; Seat Belt Use - always; 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 F/U with Imani Ott, MSN, MACHINE CLOTHING MAN 3 months Reji Li M.D. documented in this encounter Plan of Treatment Not on file documented as of this encounter Visit Diagnoses Not on filedocumented in this encounter Additional Health Concerns Infection Onset Date Last Indicated Resolved Time Rule Out COVID-19 03/19/2020 03/19/2020 03/19/2020 6:22 PM SPECIAL CLIENT BUS DRIVER COVID-19 03/19/2020 03/19/2020 04/09/2020 11:3 9 PM SPECIAL CLIENT BUS DRIVER Rule Out COVID-19 06/19/2021 06/19/2021 06/19/2021 1:37 AM CDT Rule Out COVID-19 10/29/2021 10/29/2021 10/29/2021 1:07 AM CDT documented as of this encounter Care Teams Reeling Machine Setup Operator Relationship Specialty Start Date End Date Edda Agudelo PA-C [place] [id number] [address] [place] [address] 073168 PCP - General 05/04/12 10/11/19 Ernestina Martini 420 [facility] 396 [place] [address] PCP - General Family Practice 10/12/19 08/18/22 [facility] [address] [place], [place] 10425337 PCP - General 08/19/22 10/14/22 Kaykay Duarte, QUANTITATIVE STRATEGY ANALYST [address] [place] [address] PCP - General 10/15/22 Magno Wood MD [address] [place] [address] [facility] 396 [place] [address] Otolaryngology 05/29/15 08/02/17 Parth Ellis MD [address] [place] [address] Assigned Heart and Vascular Provider 01/13/20 12/13/21 Tati Ayala MD [address] [facility] 200 [place], [place] 115160 Assigned Endocrinology Provider 01/13/20 12/29/20 Khris Butt MD [address] [place] [address] [place] [address] Assigned Heart and Vascular Provider 12/14/21 02/14/22 Roderick Morelos MD [address] [place] [address] Cardiovascular Disease 02/03/22 Roderick Morelos MD [address] [place] [address] Assigned Heart and Vascular Provider 02/15/22 07/18/22 Magno Wood MD 420 [facility] 396 [place] [address] Otolaryngology 02/21/22 Sophie Ocasio AuD 9 [place], [place] 768135 Child Nutrition Assistant Audiology 02/21/22 Parth Ellis MD [address] [place], [place] 229495 Assigned Heart and Vascular Provider 07/19/22 07/25/22 Roderick Morelos MD [address] [place], [place] 757275 Assigned Heart and Vascular Provider 07/26/22 08/08/22 Henny Rosales APRN MACHINE CLOTHING MAN [address] [place] [address] Assigned Heart and Vascular Provider 08/09/[address] [place] [address] [phone] Registered Dietitian Dietitian, Registered 09/02/22 Christiane Rodríguez MD [address] [place] [address] 396 [place] [address] Otolaryngology 11/12/22 Luis A Escobedo MD [address] [place] [address] 195 [place] [address] Assigned Surgical Provider 11/01/22 11/28/22 Chely Fernandez PA-C [address] [place] [address] 753075 Assigned Surgical Provider 11/29/22 02/06/23 Jing Cadena APRN LIBRARIAN ASSISTANT 420 [facility] 450 [place] [address] Clinical Nurse Specialist Anesthesiology 01/15/23 Radha Lopez [facility] 909 [place], [place] 324765 Pharmacist Pharmacist 01/16/23 Luis A Escobedo MD 420 [facility] 195 [place], [place] 813455 Assigned Surgical Provider 02/07/23 04/15/23 Geri Loza PA-C [address] [place] [address] 833135 Assigned Surgical Provider 04/16/23 Raina Patterson APRN MACHINE CLOTHING MAN [address] [place], [place] 751605 Nurse Practitioner Cardiovascular Disease 05/11/23 documented as of this encounter
--- OUTSIDE RECORDS SUMMARY | 2024-01-06 09:43 | XMS_ITS | Encounter Summary ---
Author Organization [facility] Address [address], [place] [address] Care Team Providers Care Locomotive Firer/Fireman Name Role Phone Kaykay Duarte APRN, LEAH Primary Care Provid er Encounter Details Date Type Department Care Team (Late st Contact Info) Description 12/18/2023 Notes/Orders Centralized Outreach [address] [place] [address] [place] [phone] Mikayla Sweeney MD [address] [place] [address] Type 2 diabetes mellitus without [...] Type Priority Associated Diagnoses Orde r Schedule Albumin/Creatinine Ratio,Random Urine Lab Routine Type 2 diabetes mellitus without complication, without long-term current use of insulin (HRC) Expected: 12/18/2023, Expires: 06/16/2024 documented as of this encounter Visit Diagnoses Diagnosis Type 2 diabetes mellitus without complication, without long-term current use of insulin (HRC) documented in this encounter Care Teams Locomotive Firer/Fireman Relationship Specialty Start Date End Date Kaykay Duarte, GINA, RESEARCH LABORATORY MANAGER [address] [place] [address] PCP - General Nurse Practitioner 10/25/21 documented as of this encounter
--- OUTSIDE RECORDS SUMMARY | 2024-01-06 09:43 | XMS_ITS | Encounter Summary ---
Author Organization [facility] Address [address] [place] [address] Care Team Providers Care Rotary Cutter Name Role Phone Edda Agudelo PA-C Primary Care Provider [phone] Magno Wood MD Unavailable [phone] [facility] Care Provider Unavailable Parth Ellis MD Unavailable [phone] Tati Ayala MD Unavailable [phone] Khris Butt MD Unavailable [phone] MorelosRoderick nunes MD Unavailable [phone] Roderick Morelos MD Unavailable [phone] Magno Wood MD Unavailable Sophie Ocasio Unavailable [phone] Parth Ellis MD Unavailable [phone] MorelosRoderick nunes MD Unavailable [phone] Henny Rosales APRN PROPULSION ENGINEER Unavailable [phone] [facility] Primary Care Pr ovider Sharee Oliva RD Unavailable Kaykay Duarte NP Primary Care Provider [phone] Christiane Rodríguez MD Unavailable [phone] Luis A Escobedo MD Unavailable [phone] Chely Fernandez PA-C Unavailable [phone] Cadena Jing Susie [facility] Unavailable [phone] Radha Lopez [facility] Unavailable [phone] Luis A Escobedo MD Unavailable [phone] Dago Geri Gaytan PA-C Unavailable [phone] Yesenia Raina [facility] Unavailable Encounter Details Date Type Department Care Team (Late st Contact Info) Description 02/10/2008 Office Visit-[facility] [address] [facility] [address] [place] [address] Reji Li MD [address] [facility] [address] [place] [address] Social History Tobacco Use Types [...] Referring Physician: LUIS A WORRELL Referring Clinic: [facility] CURRENT DIAGNOSES 1. - Hypercholesterolemia, 272.0 [...] Mother - Age 34, cancer-breast; Half-Brother - [place]; Sister 1 - CAD; SOCIAL HISTORY Alcohol [...] Out COVID-19 03/19/2020 03/19/2020 03/19/2020 6:22 PM MANAGER EQUITY COVID-19 03/19/2020 03/19/2020 04/09/2020 11:3 9 PM MANAGER EQUITY Rule Out COVID-19 06/19/2021 06/19/2021 06/19/2021 1:37 AM CDT Rule Out COVID-19 10/29/2021 10/29/2021 10/29/2021 1:07 AM CDT documented as of this encounter Care Teams Rotary Cutter Relationship Specialty Start Date End Date Edda Agudelo PA-C [facility] [address] [address] PCP - General 05/04/12 10/11/19 Sheila Martin[place]le [address] [facility] [address] [place] [address] PCP - General Family Practice 10/12/19 08/18/22 [facility] Elvia Nugent [place] [address] [place], [place] 6[address]87 PCP - General 08/19/22 10/14/22 Kaykay Duarte PHYSICIAN SURGEON [address] [place] [address] PCP - General 10/15/22 Magno Wood MD [address] [facility] [address] [place] [address] Otolaryngology 05/29/15 08/02/17 Parth Ellis MD [address] [place] [address] Assigned Heart and Vascular Provider 01/13/20 12/13/21 Tati Ayala MD [address] [place], [place] [address] Assigned Endocrinology Provider 01/13/20 12/29/20 Khris Butt MD [address] [facility] [address] [place] [address] Assigned Heart and Vascular Provider 12/14/21 02/14/22 Roderick Morelos MD [address] [place] [id number] Cardiovascular Disease 02/03/22 Roderick Morelos MD [address] [place] [address] Assigned Heart and Vascular Provider 02/15/22 07/18/22 Magno Wood MD [address] [facility] [address] [place] [address] Otolaryngology 02/21/22 Sophie Ocasio AuD [address] [place] [address] [place] [facility] Manager Audiology 02/21/22 Parth Ellis MD [address] [place] [address] Assigned Heart and Vascular Provider 07/19/22 07/25/22 Roderick Morelos MD [address] [place] [address] Assigned Heart and Vascular Provider 07/26/22 08/08/22 Henny Rosales APRN PROPULSION ENGINEER [address] [place] [address] Assigned Heart and Vascular Provider 08/09/[address] [place], [place] [address] Registered Dietitian Dietitian, Registered 09/02/22 Christiane Rodríguez MD [address] [facility] [address] [place] [address] Otolaryngology 11/12/22 Luis A Escobedo MD [address] [facility] [address] [place] [address] Assigned Surgical Provider 11/01/22 11/28/22 Chely Fernandez PA-C [address] [place] [address] Assigned Surgical Provider 11/29/22 02/06/23 Jing Cadena, LESSON INSTRUCTOR CHILDCARE DIRECTOR [address] [facility] [address] [place] [address] Clinical Nurse Specialist Anesthesiology 01/15/23 Radha Lopez, [facility] [address] [place] [address] Pharmacist Pharmacist 01/16/23 Luis A Escobedo MD [address] [place] [address] [address] [place], [place] 76[address] Assigned Surgical Provider 02/07/23 04/15/23 Geri Loza PA-C [address] [place] [address] [id number] Assigned Surgical Provider 04/16/23 Raina Patterson APRN PROPULSION ENGINEER [address] [place] [id number] Nurse Practitioner Cardiovascular Disease 05/11/23 documented as of this encounter
--- OUTSIDE RECORDS SUMMARY | 2024-01-06 09:43 | XMS_ITS | Clinical Summary ---
Author Organization [facility] Address [address] [place] [address] Care Team Providers Care Shipping Helper Name Role Phone Kaykay Duarte APRN, LEAH Primary Care Provid er Source Comments You are receiving this document as you are listed as the primary care provider,follow-up provider, or the patient has been referred to you for consultation.This is in compliance with the Medicare and[facility] Cent[facility] EHR Incentive Program,which states Providers who transition their patient to another setting of careor provider of care or refers their patient to another provider of care shouldprovide summary care record for each transition of care or referral. [employer] Allergies No known active allergies Medications Medication [...] 1 Each by Intrauterine route once. Active mometasone-formote rol (DULERA) 200-5 mcg/actuation inhaler Inhale 1 Puff two times a day. Rinse mouth/gargle after use. 1 Each 3 02/20/2022 Active cyanocobalamin (FMWGGZYP28) 1000 MCG/ML injection Inject 1,000 mcg subcutaneously every 30 days. 08/15/2022 Active levothyroxine (SYNTHROID) 200 MCG tablet 1 tab PO daily with 25 mcg tab for total 225 mcg daily 90 Tablet 3 10/24/2022 Active Additional Information Patient not taking.Reported on 07/27/2023 omeprazole (PRILOSEC) 40 MG capsule Take 1 [...] 11 11/27/2022 Active gabapentin (NEURONTIN) 600 MG tabletIndications: Restless [...] after meal. 90 Tablet 1 02/10/2023 Active Additional Information Patient not taking.Reported on 07/27/2023 acetaminophen (TYLENOL) 325 MG tablet Take 2 Tablets (650 mg) by mouth. 03/19/2023 Active hyoscyamine (LEVSIN) 0.125 MG tablet Take 1 Tablet (0.125 mg) by mouth every 4 hours as needed. 02/17/2023 Active SENEXON-S 8.6-50 MG per tablet Take by mouth. 03/19/2023 Active ursodiol (ACTIGALL) 300 MG capsule Take 1 Capsule (300 mg) by mouth. 04/23/2023 Active VENTOLIN HFA 108 (90 Base) MCG/ACT inhalerIndications :Mild intermittent asthma without complication (HRC) INHALE TWO PUFFS BY MOUTH EVERY SIX HOURS NEEDED FOR WHEEZING 3 g 1 07/27/2023 Active Active Problems Problem Noted Date Diagnosed Date Morbid obesity 03/18/2023 Trochanteric bursitis of left hip 11/27/2022 Primary osteoarthritis of right hip 11/27/2022 Insulin long-term use 11/05/2021 QT prolongation 02/08/2021 Nocturia 01/04/2021 Overview (01/04/2021): Added automatically from request for surgery [id number] S/P laparoscopic sleeve gastrectomy 08/09/2020 Overview (08/09/2020): Laparoscopic vertical sleeve gastrectomy, intraoperative EGD No elective surgery for 30 days starting 08/09/20 Hx of hemorrhoids 03/22/2020 Type 2 diabetes mellitus wit hout complication, without long-term current use of insulin 12/15/2019 Severe obstructive sleep apnea 07/06/2019 Overview (06/28/2020): Setting: AutoPAP 5-10 cmH20 Supplied by: Elvia Artis PSG done: 07-04-18 AHI 35 RDI 36 Lowest O2 Sat: 87% [facility] Cervical high risk HPV (human papillomavirus) te st positive 08/05/2017 Overview (06/01/2023): [facility] Review: History: 07/2017: NILM HPV+ (18) [...] Encounters Date Type Department Care Team Description 12/18/2023 Notes/Orders Centralized Outreach [address] [place] [address]P [place] [address] Mikayla Sweeney MD Type 2 diabetes mellitus without complication, without long-term current use of insulin (HRC) from Last 3 Months Immunizations Name Administration Dates Next Due Influenza IIV4 (Quadrivalent ) 0.5mL (11120) 02/08/2021,03/31/2019,04/14/2017 PCV20 ([id number]) 05/20/2023 PPSV23 (Pneumovax) 04/14/2017 Pfizer Monovalent 12+ Purple Top 11/28/2020,03 Tdap 06/26/2021, 8(Deferred: Patient Refused - Pt [...] Sign Reading Time Taken Comments Blood Pressure 138/69 07/27/2023 9:43 AM CDT Pulse 85 07/27/2023 9:43 AM CDT Temperature 36.9 ??C (98.4 ??F) 07/27/2023 9:43 AM CD T Respiratory Rate 20 07/27/2023 9:43 AM CDT Oxygen Saturation 100% 07/27/2023 9:43 AM CDT Inhaled Oxygen Concentration - - Weight 120.5 kg (265 lb 9.6 oz) 05/20/2023 2:19 PM LONG TERM Height 167.6 cm (5' 6) 09/11/2022 4:11 PM CDT Body Mass Index 42.87 09/11/2022 4:11 PM CDT Plan of Treatment Health Maintenance Due Date Last Done Comments HepB (1) 10/02/1987 Diabetes: Foot Exam 02/08/2022 02/08/2021 (Completed ) Diabetes: HGBA1C 03/25/2023 12/23/2022, 05/2022, 10/23/2022, Additional history exists Diabetes: Urine Microalbumin 08/21/2023 08/20/2022, 02/08/2021, 01/04/2020 Diabetes: Creatinine 10/24/2023 10/23/2022, 02/08/2021, 08/04/2020, Additional history exists COVID-19 Vaccine ( season) 2023 11/28/2020, 06/19/2020 Influenza (#1) 2023 02/08/2021, 11/2019, 04/14/2017 Mammogram 04/02/2024 04/02/2023, 01/21, 01/30/2021, Additional history exists Diabetes: Eye Exam 04/28/2024 04/28/2023, 0 04/28/2023, 04/16/2021, Additional history exists Adult Preventive Visit 04/29/2024 04/29/2023, 2020 Cervical Cancer Screening 04/29/20262023, 12/17/2020, 08/27/2017, Additional history exists Diabetes: Lipid Panel 10/24/2027 [...] patient's age to complete this topic RSV Aged Out No longer eligi ble based on patient's age to complete this topic MCV4 Aged Out No longer eligi ble based on patient's age to complete this topic Medical Devices Implanted Type Area Jig Boring Machine Set Up Operator Device Identifier Shelf Expiration Date Model / Serial / Lot Kit Leidy Burris Sys - [id number] Implanted:Qty: 1 on 02/19/2021 by Zoila Shaikh MBBS at [facility] DEVICE N/A: PELVIS Martinez Sci 12/05/2021 [id number] / [id number] / [id number] Description:Polypropylene me sh- per [employer] Ent Gyrus Virk Torp-05/20/2005 Implanted: 006 (Quantity not on file) ENT EAR [id number] / / [id number] Description:Devices that are made from non-metallic materials (i.e. Implants and Ventilation Tubes made from DAVIS, Plasti-pore, Silicone, Fluoroplastic) are inherently non-conducting and non-magnetic and pose no known hazards in all MR environments and therefore are considered MR Safe. - Per [facility] Procedures Procedure Name Priority Date/Time Associated Diagnosis Comments PAP TEST Routine 04/29/2023 9:58 AM LONG TERM Screening for cervical cancer MM MAMMOGRAM SCREENING BILAT W 3D SCOT W CAD Routine 04/02/2023 8:58 AM LONG TERM HGB A1C Routine 12/23/2022 11:40 AM CDT [...] Recently Relevant to Health Maintenance Results * PAP Test (04/29/2023 9:58 AM LONG TERM) Case Report Pap ? Case: [id number] ? Authorizing Provider: ??Elizabeth Herndon APRN, ?Collected: ? 04/29/2023 0958 ? CNM ? Ordering Location: ? [facility] ? Received: ?04/29/2023 1008 ? Services-TELEVISION SPECIALIST ? First Screen: ?Nault, Diana E, CT (ASCP) ? Specimen: ?Pap Test, Routine, Cervix/Endocervix ? 05/21/2023 1:19 PM LONG TERM [facility] Pap Specimen Adequacy Satisfactory for evaluation, endocervical/kerr sformation zone component present. 05/21/2023 1:19 PM LONG TERM [facility] Pap Interpretation (NILM) Negative for intraepithelial lesion or malignancy. 05/21/2023 1:19 PM LONG TERM [facility] Pap Disclaimer The Pap test is a screening test to aid in the detection of cervical and vaginal cancers and their precursor lesions. It is not a diagnostic procedure and should not be used as the sole means of detecting malignancy. Both false-positive and false-negative results may occur. 05/21/2023 1:19 PM LONG TERM [facility] Gross Description The specimen is received in SurePath fixative and properly labeled. 1 Pap-stained SurePath slide is prepared. 05/21/2023 1:19 PM LONG TERM [facility] Embedded Images 1:19 PM LONG TERM [facility] Other Specimen Type ENTIRE ENDOCERVIX / Unknown 04/29/2023 9:58 AM LONG TERM 04/29/2023 10:08 AM LONG TERM Comment:LMP: No LMP recorded . (Menstrual status: IUD). Elizabeth Herndon APRN, CNM LAB PATHOLOGY Performing Organization Address City/State/[facility] de Phone Number [facility] [address] * MM Mammogram Screening Bilat W 3D Scot W CAD (04/02/2023 8:58 AM LONG TERM) Anatomical Region Laterality Modality Breast Bilateral Mammography Impressions 04/02/2023 10:15 AM LONG TERM : ACR BI-RADS Category 1: Negative RECOMMENDATION: Follow Up Imaging in 12 months - Bilateral The provided family history indicates that the patient might be at a high lifetime risk of breast cancer. Consider a formal risk assessment if not previously performed. The results and recommendations of this examination will be communicated to the patient. Narrative 04/02/2023 10:15 AM LONG TERM MM MAMMOGRAM SCREENING BILAT W 3D SCOT [...] radiographic evidence of malignancy. ?? Kaykay Duarte BOWL SANDER, CORPORATE TUTOR RAD CARLOS * (ABNORMAL) HgbA1c - Collect in Lab (12/23/2022 11:40 AM CDT) Hemoglobin A1C (Rapid) 6.4(H) <=5.6 % 12/23/2022 1:46 PM CDT [facility] Estimated Average Glucose (Calc) 137 < 117 mg/dL 12/23/2022 1:46 PM T [facility] Comment:Estimated average gl ucose (eAG) converts A1c into glucose units (mg/dL) and estimates average glucose over the past approximately 3 months. The eAG reference interval (<117 mg/dL) corresponds to an A1c of <5.7%. Blood Venipuncture / Unknown 12/23/2022 11:40 AM CDT 12/23/2022 11:43 AM CDT Narrative [facility] - 12/23/2022 1:46 PM CDT For [...] for further direction. Mikayla Sweeney MD LAB_1 [facility] [address] [place] [address], [facility] [phone] * Endoscopy, colon, diagnostic (11/20/2022 7:03 AM CDT) Anatomical Region Laterality Modality Other 11/20/2022 7:03 AM CDT Narrative 11/20/2022 7:03 AM CDT Patient Name: Billie Connolly Procedure Date: 11/20/2022 7:03 AM Date of : 1970 Admit Type: Outpatient Age: 52 Gender: Female Note Status: Finalized Attending MD: Nahomy Latham , Procedure: ? Colonoscopy Indications: ? Screening for colorectal malignant ? neoplasm Providers: ? Nahomy Latham, Eulalia Chávez , SKIP Referring MD: ? Medicines: ? Fentanyl 200 micrograms IV, ? Midazolam 4 mg IV Complications: ? No immediate complications. Procedure: ? After I obtained informed consent, ? the scope was passed under direct ? vision. Throughout the procedure, ? the patient's blood pressure, ? pulse, and oxygen saturations were ? monitored continuously. The ? [id number] was introduced through ? the anus and [...] the initial medication ? administration until the media consultant outside sales assists with ? initial maneuvers (biopsy / [...] Procedure Code(s): ? --- Professional --- ? 87009, Colonoscopy, flexible; ? diagnostic, including collection of ? specimen(s) by brushing or washing, ? when performed (separate procedure) ? 76304, Moderate sedation; each ? additional 15 minutes [...] (additional time may ? be reported with 20822, as ? appropriate) Diagnosis Code(s): ? --- Professional --- ? Z12.11, Encounter for screening for ? malignant neoplasm of colon ? K64.9, Unspecified hemorrhoids CPT copyright 2020 [employer]. All rights reserved. The codes documented in this report are preliminary and upon machine coremaker review may be revised to meet current [...] and oxygen saturations were monitored continuously. The [id number] was introduced through the anus and advanced [...] from the initial medication administration until the media consultant outside sales assists with initial maneuvers (biopsy / polypectomy / etc.), or if no maneuvers are performed, until the endoscopist leaves the room. Impression: - The examined portion of the ileum was normal. - The entire examined colon is normal. - Hemorrhoids. - No specimens collected. Recommendation: - Repeat colonoscopy in 10 years for screening purposes. Procedure Code(s): --- Professional --- 98492, Colonoscopy, flexible; diagnostic, including collection of specimen(s) by brushing or washing, when performed (separate procedure) 87380, Moderate sedation; each additional 15 minutes intraservice time G0500, Moderate sedation services provided by the same physician or other qualified health childcare director performing a gastrointestinal endoscopic service that sedation supports, requiring the presence of an independent trained observer to assist in the monitoring of the patient's level of consciousness and physiological status; initial 15 minutes of intra-service time; patient age 5 years or older (additional time may be reported with 12776, as appropriate) Diagnosis Code(s): --- Professional --- Z12.11, Encounter for screening for malignant neoplasm of colon K64.9, Unspecified hemorrhoids CPT copyright 2020 [employer]. All rights reserved. The codes documented in this report are preliminary and upon machine coremaker review may be revised to meet current compliance requirements. Nahomy Latham, 11/20/2022 8:02:54 AM This document has been electronically signed. Number of Addenda: 0 Note Initiated On: 11/20/2022 7:03 AM Endoscopy Report Elizabeth Herndon BOWL SANDER, CNM ET GI PROCEDUR E ORDERABLES * (ABNORMAL) Lipid Panel and Direct LDL(If Needed) (10/23/2022 11:20 AM CDT) Cholesterol 322(H) 0 - 199 mg/dL 10/23/2022 1:00 PM T [facility] Triglyceride 205(H) <=149 mg/dL 10/23/2022 1:00 PM [facility] HDL Cholesterol 46 >=40 mg/dL 3 1:00 PM [facility] LDL, Calculated 235(H) <130 mg/dL 3 1:00 PM [facility] Non HDL Chol, Calculated 276(H) <=159 mg/dL 10/23/2022 1:00 PM [facility] Cholesterol/HDL Ratio 7.0 10/23/2022 1:00 PM [facility] Hours Fasting 0 10/23/2022 1:00 PM [facility] Blood Venipuncture / Unknown 10/23/2022 11:20 AM CDT 10/23/2022 11:39 AM CDT Mikayla Sweeney MD LAB_1 [facility] [address] [place] [address] [phone] * (ABNORMAL) Comp Metabolic Panel (10/23/2022 11:20 AM CDT) Sodium 139 136 - 145 mmol/L 10/23/2022 1:00 PM T [facility] Potassium 4.3 3.5 - 5.1 mmol/L 10/23/2022 1:00 PM [facility] Chloride 105 98 - 109 mmol/L 10/23/2022 1:00 PM [facility] CO2 24 20 - 29 mmol/L 10/23/2022 1:00 PM [facility] Anion Gap 10 7 - 16 mmol/L 10/23/2022 1:00 PM [facility] Calcium 9.4 8.4 - 10.4 mg/dL 10/23/2022 1:00 PM [facility] BUN 17 7 - 26 mg/dL 10/23/2022 1:00 PM [facility] Creatinine 0.90 0.55 - 1.02 mg/dL 10/23/2022 1:00 PM [facility] Alkaline Phosphatase 73 40 - 150 U/L 10/23/2022 1:00 PM [facility] AST (SGOT) 16 10 - 40 U/L 10/23/2022 1:00 PM [facility] ALT (SGPT) 21 <=55 U/L 10/23/2022 1:00 PM [facility] Bilirubin, Total 0.4 0.2 - 1.2 mg/dL 10/23/2022 1:00 PM [facility] Protein, Total 7.0 6.4 - 8.3 g/dL 10/23/2022 1:00 PM [facility] Albumin 3.8 3.5 - 5.0 g/dL 10/23/2022 1:00 PM [facility] Glucose 123(H) 70 - 100 mg/dL 10/23/2022 1:00 PM [facility] Comment:The given reference range is for the fasting state. Non-fasting reference range for glucose is 70 - 180 mg/dL. Hours Fasting 0 10/23/2022 1:00 PM [facility] GFR, Estimated >60 >60 mL/min/1.7 3m2 10/23/2022 1:00 PM [facility] Blood Venipuncture / Unknown 10/23/2022 11:20 AM CDT 10/23/2022 11:[address] [facility] Geri Loza PA-C LAB_1 [facility] [address] [place] [address], [facility] [phone] * Albumin/Creatinine Ratio,Random Urine (08/20/2022 8:36 AM CDT) Pathologist [facility] Albumin/Creati nine Ratio, Urine, Random 10 <30 mg/g 08/20/2022 10:58 AM CDT [facility] Albumin, Urine, Random 18.1 mg/L 08/20/2022 10:58 AM CDT [facility] Creatinine, Urine, Random 182 >20 mg/dL mg/dL 08/20/2022 10:58 AM CDT [facility] Urine Non-blood Collection / Unknown 08/20/2022 8:36 AM CDT 08/20/2022 9:30 AM CDT Mikayla Sweeney MD LAB_1 [facility] [address] [place] [address] [phone] * Hepatitis C Antibody, with Reflex (09/13/2021 11:05 AM CDT) [facility] Hepatitis C Antibody Negative (Non Reactive) Negative (Non Reactive) 09/13/2021 4:31 PM CDT [facility] Comment:Antibodies to HCV no t detected. Does not exclude the possiblity of exposure to HCV. Blood Venipuncture / Unknown 09/13/2021 11:05 AM CDT 09/13/2021 11:16 AM CDT Kaykay Duarte APRN, LEAH LAB_1 [facility] [address] [place], [place] [address] [place] [address] * HIV 1/2 Ag/Ab 4th Generation (06/27/2020 8:04 AM CDT) [facility] HIV 1/2 Antigen/Antib sherry (4th generation) Negative (Non Reactive) Negative (Non Reactive) 06/27/2020 12:45 PM CDT [facility] Comment:HIV-1 p24 Antigen an d HIV-1/HIV-2 Antibody not detected Blood Venipuncture / Unknown 06/27/2020 8:04 AM CDT 06/27/2020 8:09 AM CDT Kaykay Duarte APRN, CNP LAB_1 [facility] [address] [place] [address], [facility] from Last 3 Months or Most Recently Relevant to Health Maintenance Advance Directives * Full Code (Latest Code Status on File) Date Activated Date Inactivated Comments 08/09/2020 4:04 PM 08/10/2020 1:55 PM Care Teams Shipping Helper Relationship Specialty Start Date End Date Kaykay Duarte APRN, CNP [address] [place] [address] PCP - General Nurse Practitioner 10/25/21
--- OUTSIDE RECORDS SUMMARY | 2024-01-06 09:43 | XMS_ITS | Encounter Summary ---
Author Organization [facility] Address [address] [address] Care Team Providers Care Wax Pot Tender Name Role Phone Kaykay Duarte APRN, CNP Primary Care Provid er Reason for Visit * Reason Comments Vaginal Odor Encounter Details Date Type Department Care Team (Late st Contact Info) Description 04/14/2018 Nurse Triage [facility] [id number] [place] [address] Kaykay Duarte APRN, CNP [id number] [place] [address] [phone] Vaginal Odor Social History Tobacco Use Types [...] States she will go to Urgent Care ER LINING FOLDER * Kaykay Duarte APRN, CNP - 04/14/2018 3:22 PM CST Plz call pt. Ok to work her in on at 11:40 or 1pm. Electronically signed by Kaykay Duarte, STEEL SHOT HEADER OPERATOR, EARLY MORNING BABYSITTER at 04/14/2018 3:22 PM [facility]IP[facility] LINING [facility] * Geri Burnett, RN - 04/14/2018 3:09 PM CST Clinician Action: Appointment Work In Reason Vaginal discharge/odor Clinician Next Step: Route to [facility] to follow up and Patient IS expecting a call back from care team Specific Request(s): 1. Pt asking for a work in [facility] for vaginal discharge (white) and odor [...] last menstrual period? no Protocols used: VAGINAL [id number] ER LINING FOLDER * Karen Saunders - 04/14/2018 3:01 PM CST Pt calling back in. Transferred to triage per request. ER LINING FOLDER * Jacquelyn Jaquez CNA - 04/14/2018 11:05 AM CST Symptoms Describe your symptoms (if pain, include location): Odor, discharge When did they start? 2 weeks Additional comments (related to the above concern): Pt has had past BV infection. Pt unavailable to speak 11:30-1:00pm today 04/14/18 If a prescription is needed, patient would like it filled at the pharmacy listed in [facility]. (Verify the pharmacy patient would like to use for this request is highlighted in blue in Pharmacy Selection under [facility]) Is it okay to leave a detailed message on your voicemail? Yes (Advise caller that the PN call back number will end with [phone] or unknown) For urgent symptoms: Please route and transfer to: Triage Pool (high priority) For routine symptoms: Please route to: Triage Pool (only transfer if caller insists) ER [facility]ING F[facility] documented in this encounter Plan of Treatment Not on file documented as of this encounter Visit Diagnoses Not on filedocumented in this encounter Additional Health Concerns Infection Onset Date Last Indicated Resolved Time R/O COVID19 02/08/2021 02/08/2021 02/09/2021 10:0 6 AM ZIPPER LINING F[facility]DER R/O COVID19 02/17/2021 02/17/2021 02/17/2021 11:3 2 PM ZIPPER LINING F[facility]DER documented as of this encounter Care Teams Wax Pot Tender Relationship Specialty Start Date End Date Kaykay Duarte, STEEL SHOT HEADER OPERATOR, EARLY MORNING BABYSITTER [address] [place] [address] PCP - General Nurse Practitioner 10/25/21 documented as of this encounter"
--- OUTSIDE RECORDS SUMMARY | 2024-01-06 09:43 | XMS_ITS | Encounter Summary ---
Author Organization [facility] [place] Address [address] [place] [address] Care Team Providers Care Finance Manager Name Role Phone Edda Agudelo PA-C Primary Care Provider [phone] Magno Wood MD Unavailable [phone] [place] [facility] Provider Unavailable Parth Ellis MD Unavailable [phone] Tati Ayala MD Unavailable [phone] Khris Butt MD Unavailable [phone] MorelosRoderick nunes MD Unavailable [phone] Roderick Morelos MD Unavailable [phone] Magno Wood MD Unavailable [phone] Sophie Ocasio Unavailable [phone] Parth Ellis MD Unavailable [phone] MorelosRoderick nunes MD Unavailable [phone] Henny Rosales APRN CONTROL SYSTEMS DESIGNER Unavailable [phone] [facility] Primary Care Pr ovider Sharee Oliva RD Unavailable [phone] Kaykay Duarte NP Primary Care Provider Christiane Rodríguez MD Unavailable [phone] Luis A Escobedo MD Unavailable [phone] Chely Fernandez PA-C Unavailable [phone] CadenaJing APRN [facility] Unavailable + [phone] Radha oLpez [facility] Unavailable [phone] Luis A Escobedo MD Unavailable [phone] Geri Loza PA-C Unavailable [phone] Yesenia Raina [facility] Unavailable [phone] Encounter Details Date Type Department Care Team (Late st Contact Info) Description 01/25/2004 Office Visit-[facility] [place] [id number] [place] [address] Unknown, DoctorMD Social History Tobacco [...] old Referring Physician: BOY WATSON Referring Clinic: [facility] CURRENT DIAGNOSES [...] Mother - Age 34, cancer-breast; Half-Brother - [place]; Sister 1 - CAD; SOCIAL HISTORY Alcohol Use - socially, wine, mixed drinks and (3x/yr); Smoking - never smoked; Diet - caffeine use-1-2 per day and low carb diet; Exercise - some exercise, swimming and walking; Seat Belt Use - always; 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; Residence - lives with and children; Place of - [place]; Hours Worked - 30 hours per week; [...] Out COVID-19 03/19/2020 03/19/2020 03/19/2020 6:22 PM PRESS HAND COVID-19 03/19/2020 03/19/2020 04/09/2020 11:3 9 PM PRESS HAND Rule Out COVID-19 06/19/2021 06/19/2021 06/19/2021 1:37 AM CDT Rule Out COVID-19 10/29/2021 10/29/2021 10/29/2021 1:07 AM CDT documented as of this encounter Care Teams Finance Manager Relationship Specialty Start Date End Date Edda Agudelo PA-C [facility] [address] [place] [id number] PCP - General 05/04/12 10/11/19 Ernestina Martini [address] [facility] [address] [place] [address] PCP - General Family Practice 10/12/19 08/18/22 [place] [address] [facility] [address] PCP - General 08/19/22 10/14/22 [place] [address] [place] [address] PCP - General 10/15/22 Magno Wood MD [address] [facility] [address] [place], [place] 8[address] Otolaryngology 05/29/15 08/02/17 Parth Ellis MD [address] [place] [id number] Assigned Heart and Vascular Provider 01/13/20 12/13/21 Tati Ayala MD [address] [place], [place] 79[address] Assigned Endocrinology Provider 01/13/20 12/29/20 Khris Butt MD [address] [place] [address] [place] [address] Assigned Heart and Vascular Provider 12/14/21 02/14/22 Roderick Morelos MD [address] [place] 643605 Cardiovascular Disease 02/03/22 Roderick Morelos MD [address] [place] [address] Assigned Heart and Vascular Provider 02/15/22 07/18/22 Magno Wood MD [address] [id number] Otolaryngology 02/21/22 Sophie Ocasio AuD [address] [place] [address] [phone] Manager Medical Device Audiology 02/21/22 Parth Ellis MD [address] [place], [place] 6238[address] Assigned Heart and Vascular Provider 07/19/22 07/25/22 Roderick Morelos MD [address] [place], [place] 953425 Assigned Heart and Vascular Provider 07/26/22 08/08/22 Henny Rosales APRN CONTROL SYSTEMS DESIGNER [address] [place] [address] Assigned Heart and Vascular Provider 08/09/[address] [place] [address] [phone] Registered Dietitian Dietitian, Registered 09/02/22 Christiane Rodríguez MD [address] [place] [address] 317165 Otolaryngology 11/12/22 Luis A Escobedo MD [address] [place] [address] 745375 Assigned Surgical Provider 11/01/22 11/28/22 Chely Fernandez PA-C [address] [place], [place] 175965 Assigned Surgical Provider 11/29/22 02/06/23 Jing Cadena APRN SAMPLE CARRIER [address] [facility] [address] [place], [place] 75[address] Clinical Nurse Specialist Anesthesiology 01/15/23 Radha Lopez, [facility] [address] [place] [address] [phone] Pharmacist Pharmacist 01/16/23 Luis A Escobedo MD [address] [facility] [address] [place], [place] 562975 Assigned Surgical Provider 02/07/23 04/15/23 Geri Loza PA-C [address] [place] [address] [id number] Assigned Surgical Provider 04/16/23 Raina Patterson APRN CONTROL SYSTEMS DESIGNER [address] [facility] [address] [place], [place] 26[address]85 Nurse Practitioner Cardiovascular Disease 05/11/23 documented as of this encounter
[2024-01-06] MEDS: SODIUM CHLORIDE 0.9 % (FLUSH) 10 ML SYRINGE IVF ×2 (10:38→19:55)
[2024-01-06] MEDS: OXYCODONE (CR) 10 MG TAB.ER.12H PO (10:47)
[2024-01-06] MEDS: ACETAMINOPHEN 500 MG TABLET 1000 MG PO ×3 (10:48→23:47)
[2024-01-06] MEDS: fentaNYL 100 MCG/2 ML inj IVP (10:56)
[2024-01-06] MEDS: MIDAZOLAM HCL 1 MG/ML inj IVP (10:56)
--- NOTE | 2024-01-06 11:05 | SUR.PREOP ---
TIME?OUT:?1055 PT/RN/MDA?VERIFICATION?OF?SURGICAL?SITE,?PROCEDURE,?AND?CONSENT OBTAINED?PRIOR?TO?INVASIVE?PROCEDURE.
--- NOTE | 2024-01-06 11:45 | CRLHL7_ITS ---
For Patients: As a result of the Cures Act, medical imaging exams and procedure reports are released immediately into your electronic medical record. You may view this report before your referring provider. If you have questions, please contact your health care provider. Indication: Right hip replacement. Technique: Single AP intraoperative view of the right hip. Comparison: None. Findings/Impression: A non cemented right total hip arthroplasty is present. Alignment appears nearly anatomic. No other retained radiopaque metallic surgical foreign body is identified. Dictated by Dragan Rajan MD @ 01/09/2024 3:08:41 PM (Electronically Signed)
[2024-01-06] MEDS: 0.9 % SODIUM CHLORIDE 1000 ml 1,000 ML 125 ML IV (11:48)
--- NOTE | 2024-01-06 12:01 | P.NB_ITS ---
Nerve Block Nerve Block Time Seen by Provider: 11:00 Date Seen: 01/06/24 Type of block requested by surgeon for post-operative analgesia: RADHA/LFCN Side: right Time out performed: Yes Verification of patient name: Yes Verification of date of : Yes Site marking: site marked Name of person performing procedure: Magnus Continuous monitoring Was continuous monitoring of O2 sat, B/P, monitor car operator, recorded every 15 minutes?: Yes Procedure Checklist: sterile prep, needles and gloves Ultrasound guided. Images saved: Yes Medications given in 5ml increments after negative aspiration: Ropivicaine %: 0.5 mL: 30 Needle gauge: 20 Precedex (mcg): 25 Patient tolerated procedure well: Yes Additional comments: Needle noted below psoas tendon needle noted adjacent to LFCN Block Charges Block Charge (with Pro Fee): Other Periph Nerve Block Use of Ultrasound Machine for Block: Yes- US Guidance/pain block
--- NOTE | 2024-01-06 12:02 | W.ANESCHARGE ---
Anesthesia Charges Start Date/Time Anesthesia Start Date: 01/06/24 Anesthesia Start Time: 11:48 Stop Date/Time Anesthesia Stop Date: 01/06/24 Anesthesia Stop Time: 14:30
[2024-01-06] MEDS: CEFAZOLIN 2 GM in 0.9 % SODIUM CHLORIDE Mini-bag 100 ML IVPB ×2 (12:10→18:20)
[2024-01-06] MEDS: TRANEXAMIC ACID 100 MG/ML INJ 1000 MG IV (12:13)
--- NOTE | 2024-01-06 12:15 | W.PM.H&PU ---
History & Physical Update History & Physical Update H&P Reviewed and patient assessed: No changes noted
--- NOTE | 2024-01-06 12:17 | XR_ITS ---
Patient: JIMBO RAPHAEL Facility:?[facility] Patient ID:?[id number] Site Patient ID:?[id number]. Site :?[id number] Study:?XRay-Hip Right POST OP REAL-01/06/2024 3:08:50 PM Ordering Physician:?Ruben Wesley Final Report: Indication: Status post right hip arthroplasty. Follow up exam. Technique: AP pelvis in single view of the right hip joint. Comparison: None Findings: Status post total right hip arthroplasty with intact hardware. No acute fracture or dislocation. Mild left hip joint osteoarthritis. Small amount of soft tissue emphysema in the right upper thigh and gluteal region likely secondary to recent surgery. Note made of IUD projecting over the pelvis. Impression: As above. Dictated by Arie Mehta MD @ 01/10/2024 10:30:24 AM Signed by:?Arie Mehta MD @01/10/2024 10:30:24 AM (Electronic Signature)
--- NOTE | 2024-01-06 13:30 | P.ORPRC_ITS ---
Procedure Note Date of procedure: 01/06/24 Procedure: PREOPERATIVE DIAGNOSIS: 1. Right hip osteoarthritis, severe, primary 2. Morbid obesity (BMI 40.0) POSTOPERATIVE DIAGNOSIS: 1. Right hip osteoarthritis, severe, primary 2. Morbid obesity (BMI 40.0) PROCEDURE: 1. Right total hip arthroplasty-anterior approach - of note, 33% added time and difficulty for this case given the patient's increased body mass (BMI 40; morbid obesity). This required more assistance and longer retractors than typical. 2. 16518 - intraoperative fluoroscopy up to 1 hour. SURGEON: Lupillo Miranda MD. LOSS CONTROL MANAGER: [Butch Colvin PA-C;] [ALAN Ríos] - Of note, a skilled medical administrative assistant was critical for this case to aid in patient positioning, tissue retraction, limb manipulation/positioning, and closure. ANESTHESIA: General endotracheal anesthetic EBL: 400 mL IMPLANTS: DePuy J&J uncemented total hip [place] cup size [50], hole eliminator, +0 neutral liner [Actis] stem, high offset, size 5 +1 mm [ceramic] [32]mm head COMPLICATIONS: [None evident] INDICATIONS: The patient is a pleasant 53-year-old female who has experienced severe right hip pain and difficulty bearing weight. Workup included x-rays which revealed severe osteoarthrosis in the hip. Given the deformity, the dysfunction, and the pain, as well as the failure of nonoperative management, recommendation was made for surgery. FINDINGS: Full-thickness chondral loss diffusely throughout the femoral head an d acetabulum. Osteophytes around the femoral head/neck junction. Moderate effusion upon entering the joint. DESCRIPTION OF PROCEDURE: Following a thorough discussion of risks, benefits, and alternatives consent was obtained and the right hip was marked. The patient was brought to the operating room and placed supine on the operating table. Induction of anesthesia was undertaken. [2 g IV Ancef] and 1 g tranexamic acid was administered within 1 hr of incision preoperatively. Proper time-out was performed identifying proper patient, site, procedure. The operative extremity was prepped and draped in the appropriate sterile fashion using ChloraPrep after the patient was positioned on the [place] table with head in neutral alignment and all bony prominences well padded. C-arm fluoroscopic imaging was utilized to confirm proper pelvis rotation and position, and to get true AP films of both the contralateral left, and the affected right hip. This is for comparison. A longitudinal incision was made starting approximately 1 cm distal to the ASIS, and 3-4 cm lateral. The incision was extended distally aiming toward the lateral border the patella. Sharp incision through skin and bovie cautery through the subcutaneous tissue allowed identification of the TFL fascia. This was sharply divided, and the fascia bluntly released from the muscle fibers as we dissected medial. Upon coming to the medial border, we were able to retract the TFL laterally, and penetrated the deeper fascia and identify the crossing circumflex vessels. These were ligated/cauterized. The rectus was elevated from the capsule, and retractors placed laterally and medially along the femoral neck to help with visualization of the capsule. We then performed an inverted T capsulotomy. The capsule was tagged for later repair. Retractors were placed inside the capsule. The femoral neck was visualized after releasing medially down to the lesser trochanter, along the saddle laterally, and up onto the acetabulum. The femoral neck cut was made in line with our preoperative templating. The head was removed in a single piece, and sized. We turned our attention to acetabular preparation. Initially, the labrum was resected from around the perimeter, the pulvinar was excised, allowing us to visualize the false wall. We started the reaming with a 43 mm reamer. This was medialized down to the true wall. We then enlarged our reamers sequentially up to one size less than the selected cup size. We trialed at the same size and found it to have an excellent fit. The selected cup was then opened, inserted, and impacted in line with the goal of 40? of abduction, and 20-25? of anteversion. This was confirmed on C-arm fluoroscopic imaging to be in the appropriate/goal position. Once the cup was placed we placed a hole eliminator and a liner consistent with preop planning. Attention was turned to the femoral preparation. The limb was extended, externally rotated, and adducted. The posteromedial capsule was released, as retractors were placed allowing excellent access to the proximal femur. Initially a supervisor transferring and boxing was followed by canal finder followed by various broaches. We broached sequentially up to the size noted above, found it to have excellent rotational control, and trialing various heads and necks, revealed that appropriate neck offset, and the above noted head size provided the greatest stability, and mormon of length, and offset. C-arm fluoroscopic imaging confirmed position of the stem, as well as leg lengths, which were compared with the pre procedure all fluoroscopic images. Trial implants were removed, the real femoral stem inserted, as was the appropriate head. After reducing, the leg was placed through range of motion and stability was confirmed anterior, posterior, and lateral. A 3 min Betadine soak was then performed, and thorough irrigation with normal saline followed. Closure of the capsule was performed with #1 PDS. Bleeding was confirmed to be controlled at this stage, and the TFL fascia was closed with #0 strata fix. Subcutaneous, and subcuticular closure was performed with 2-0 Vicryl and 4-0 Monocryl, respectively. Dressings were applied, and the patient was awoken from anesthesia and transferred the PACU in stable condition. A skilled medical administrative assistant was critical for this case to aid in patient positioning, tissue retraction, acetabular and proximal femoral exposure, limb manipulation/positioning, dislocation/relocation, patient safety, and closure. * again, 33% added time and difficulty for this case given the patient's increased body mass (BMI 40-morbid obesity) which also included longer retractor need. PLAN: 1. Weight bear as tolerated operative extremity. 2. 23 hr perioperative antibiotics. 3. Ice. 4. PT/OT consults for ambulation assistance/mobility education. 5. Social work consult for discharge planning. 6. DVT prophylaxis with at SCDs and [Xarelto x5 days followed by aspirin for a total of 1 month.].
--- NOTE | 2024-01-06 14:34 | W.ANESCHARGE ---
Anesthesia Charges Start Date/Time Anesthesia Start Date: 01/06/24 Anesthesia Start Time: 11:48 Stop Date/Time Anesthesia Stop Date: 01/06/24 Anesthesia Stop Time: 14:30
[2024-01-06] MEDS: fentaNYL 100 MCG/2 ML inj 50 MCG IVP (14:35)
[2024-01-06] MEDS: HYDROmorphone 0.5 mg/0.5 ml inj IVP ×4 (14:55→19:55)
--- NOTE | 2024-01-06 15:41 | SUR.PHASEI ---
patient met discharge criteria per anesthesia
[2024-01-06] MEDS: hydrOXYzine pamoate 25 MG CAPSULE PO (15:53)
[2024-01-06] MEDS: OXYCODONE 5 MG TABLET PO ×4 (16:33→23:47)
--- NOTE | 2024-01-06 17:59 | PC.NURSE ---
End of Shift Note: Patient arrived to the unit around 1530. upon arrival her pain level was 7/10 and she had just received pain medication in PACU. Got her settled in and hooked up to the monitors. Gave it a little time to see if pain would decrease. It did not decrease it actually increase to 8/10. Received a verbal order from Dr. Miranda to give the vistaril that was appearing on her MAR as orders had not been transferred yet. Pain did not get any better after giving her that. Then gave her dilaudid 0.5 mg along with 5 mg of oxycodone. Her pain level has not decreased to a 5/10 and she states this is tolerable. She has been in a lot of pain since her injury back about a month ago. Did also apply a aromatherapy patch to see if this would also help with her pain level. She is tolerating a regular diet. told her we would give her more oxycodone around 1830 and then possibly depending on her pain level get her up to the chair. Will continue to monitor until next shift arrives.
--- NOTE | 2024-01-06 18:26 | P.IMCN_ITS ---
Date of Consult Patient: [facility] Patient Consult date: 01/06/24 Requesting Physician: Orthopedics Primary Care Provider: Not a Local Provider Consult Narrative Reason for consult: Medical management Narrative: Billie Coffman is a 53 year old female past medical history significant for insomnia, hyperlipidemia, restless legs syndrome, hypothyroidism, SVT, history of diabetes mellitus now controlled s/p gastric bypass, osteoporosis right hip, BMI 40 is POD# 0 s/p right total hip arthroplasty-anterior approach. Patient reports pain initially not well managed postoperatively, but improving now. Denies headache or dizziness. Denies nausea, tolerating full diet without vomiting. There have been no perioperative complications or nursing concerns reported. Estimated total blood loss documented as 400 ml. Updated and reviewed the active medical problems, past medical history, past surgical history, social history, allergies and medications in our electronic EMR. Review of Systems Narrative: REVIEW OF SYSTEMS: Complete review of systems performed and negative unless otherwise stated in HPI or below. PFSH [facility] [place] [facility] Medical History (Updated 01/06/24 @ 18:41 by Carlotta Reilly PA-C) SVT (supraventricular tachycardia) ?I47.10 - Supraventricular tachycardia, unspecified (ICD-10) History of diabetes mellitus ?Z86.39 - Personal history of other endocrine, nutritional and metabolic disease (ICD-10) Moderate persistent asthma ?J45.40 - Moderate persistent asthma, uncomplicated (ICD-10) Panic attacks ?F41.0 - Panic disorder [episodic paroxysmal anxiety] (ICD-10) Surgical History History of colposcopy ?Z98.890 - Other specified postprocedural states (ICD-10) History of cardiac radiofrequency ablation ?Z98.890 - Other specified postprocedural states (ICD-10) History of gastric bypass (2022) ?Z98.84 - Bariatric surgery status (ICD-10) H/O wisdom tooth extraction ?K08.409 - Partial loss of teeth, unspecified cause, unspecified class (ICD- 10) History of excision of pilonidal cyst ?Z98.890 - Other specified postprocedural states (ICD-10) History of tonsillectomy and adenoidectomy (1973) ?Z90.89 - Acquired absence of other organs (ICD-10) History of tympanomastoidectomy (05/20/05) ?Z98.890 - Other specified postprocedural states (ICD-10) Family History Mother Breast cancer Father Stroke Social History What is your current living situation?: I presently have a place to live Problems where you live: no known problems In the past 12 months, utilities in danger of being shut off: no In past 12 months, lack of transportation kept you from medical appts, meetings, work, or getting things needed for daily living: no In the past 12 mos, have been you worried that your food would run out before you had money to buy more?: never true In the past 12 mos, the food you bought just didn't last and you didn't have money to buy more?: never true Smoking Status: Never smoker Do you use any of these nicotine containing products: None Second hand tobacco smoke exposure: No How often do you have a drink containing alcohol: 2-4 times a month AUDIT-C Alcohol total score: 2 Non-prescribed substance use: denies use Caffeine: Yes How often does anyone, including family, friends and others, physically hurt you : never How often does anyone, including family, friends and others, insult or talk down to you: never How often does anyone, including family, friends and others, threaten you with harm: never How often does anyone, including family, friends and others, scream or curse at you: never Meds Home Medications and Allergies Home Medications ?Medication ?Instructions ?Recorded ?Confirmed ?Type ropinirole 2 mg tablet 4 mg PO QPM 09/10/22 01/06/24 History rosuvastatin 10 mg tablet 10 mg PO HS 01/06/24 01/06/24 History Allergies Allergy/AdvReac Type Severity Reaction Status Date / Time No Known Drug Allergies Allergy Verified 12/23/23 13:04 Exam Narrative: Exam Narrative: PHYSICAL EXAM General: Pleasant, conversant, NAD HEENT: Normocephalic, atraumatic, sclera white, EOMI, oral mucosa moist Cardiovascular: RRR, S1S2. No pitting edema Pulmonary: CTA bilaterally without rhonchi, rales, expiratory wheezes. No dyspnea Abdominal: Soft, nondistended, NTTP Neurological: Alert, answering questions appropriately, cranial nerves intact, no focal findings Extremities: No gross joint deformity or swelling. Postoperative dressing in place, dry. Neurovascularly intact Skin: Warm, dry. Const: Vital Signs, click to edit/add: Vital Signs - 24 hr 01/06/24 10:48 01/06/24 10:55 01/06/24 11:00 Temperature 97.8 F Pulse Rate 56 L 71 51 L Respiratory Rate 16 16 14 Blood Pressure 122/77 142/91 H 122/73 Pulse Oximetry 99 98 100 Oxygen Delivery Me thod Room Air Nasal Cannula Nasal Cannula Oxygen Flow Rate 3 3 01/06/24 11:05 01/06/24 14:26 01/06/24 14:30 Temperature 97.1 F L 97.1 F L Pulse Rate 55 L 64 62 Respiratory Rate 14 12 11 L Blood Pressure 106/59 L 108/63 103/67 Pulse Oximetry 97 97 97 Oxygen Delivery Me thod Nasal Cannula Room Air Nasal Cannula Oxygen Flow Rate 3 4 01/06/24 14:35 01/06/24 14:40 01/06/24 14:45 Temperature 97.1 F L 97.1 F L 97.1 F L Pulse Rate 62 58 L 55 L Respiratory Rate 21 11 L 12 Blood Pressure 116/69 117/72 116/66 Pulse Oximetry 95 96 98 Oxygen Delivery Me thod Nasal Cannula Nasal Cannula Nasal Cannula Oxygen Flow Rate 4 4 2 01/06/24 14:50 01/06/24 14:55 01/06/24 15:00 Temperature 97.1 F L 97.1 F L 97.1 F L Pulse Rate 60 55 L 54 L Respiratory Rate 18 12 12 Blood Pressure 119/70 114/70 103/73 Pulse Oximetry 100 98 98 Oxygen Delivery Me thod Nasal Cannula Nasal Cannula Room Air Oxygen Flow Rate 2 2 01/06/24 15:05 01/06/24 15:10 01/06/24 15:15 Temperature 97.2 F L 97.2 F L 97.2 F L Pulse Rate 52 L 51 L 56 L Respiratory Rate 15 12 15 Blood Pressure 106/72 106/66 107/74 Pulse Oximetry 97 99 98 Oxygen Delivery Me thod Room Air Room Air Room Air Oxygen Flow Rate 01/06/24 15:20 01/06/24 15:25 10/16/24 15:30 Temperature 97.2 F L 97.2 F L 96.1 F L Pulse Rate 56 L 51 L 60 Respiratory Rate 10 L 18 20 Blood Pressure 96/64 112/78 110/76 Pulse Oximetry 99 97 97 Oxygen Delivery Me thod Room Air Room Air Room Air Oxygen Flow Rate 01/06/24 15:45 01/06/24 16:00 01/06/24 16:15 Temperature 96.1 F L 96.1 F L 96.7 F L Pulse Rate 53 L 51 L 55 L Respiratory Rate 20 20 20 Blood Pressure 118/75 110/75 109/70 Pulse Oximetry 98 98 98 Oxygen Delivery Me thod Room Air Room Air Room Air Oxygen Flow Rate 01/06/24 16:30 01/06/24 17:00 01/06/24 17:30 Temperature 96.7 F L 96.7 F L 96.7 F L Pulse Rate 52 L 50 L 69 Respiratory Rate 20 20 18 Blood Pressure 125/82 113/67 114/67 Pulse Oximetry 94 94 97 Oxygen Delivery Me thod Room Air Room Air Room Air Oxygen Flow Rate Assessment and Plan Assessment and plan (1) Osteoarthritis of right hip: Problem comment: -POD#0 s/p right REAL - anterior approach -perioperative management including pain management and anticoagulation per Orthopedic surgery -encourage postoperative pulmonary hygiene -PT OT consults -plan to discharge home with spouse tomorrow Status: Acute (2) Hypothyroidism: Problem comment: Continue levothyroxine Status: Acute (3) Restless leg syndrome, familial: Problem comment: Continue ropinorole Status: Acute (4) Hyperlipidemia: Problem comment: Continue statin Status: Acute (5) SVT (supraventricular tachycardia): Problem comment: S/p cardiac ablation January 2021 at [facility] Continues to have occasional episodes which are not sustained Telemetry postop Status: Acute Total Time Spent Total Time Spent: Total time spent caring for the patient today was 45 minutes. This includes time spent for the visit reviewing the chart, time spent during the visit, time spent after the visit and documentation and planning in coordination of care.
[2024-01-06] MEDS: ROSUVASTATIN CALCIUM 10 MG TABLET PO (20:52)
[2024-01-06] MEDS: GABAPENTIN 600 MG TABLET PO (20:52)
[2024-01-06] MEDS: LEVOTHYROXINE 100 MCG TABLET 200 MCG PO (20:55)
[2024-01-07] MEDS: CEFAZOLIN 2 GM in 0.9 % SODIUM CHLORIDE Mini-bag 100 ML IVPB (02:06)
[2024-01-07 02:11] VITALS: BP 111/60; PULSE 58; RESP 18; TEMP 36.5; O2SAT 92
[2024-01-07] MEDS: OXYCODONE 5 MG TABLET PO ×3 (02:57→10:22)
[2024-01-07] MEDS: HYDROmorphone 0.5 mg/0.5 ml inj IVP (04:28)
[2024-01-07 06:13] LABS: Basophils Absolute Auto 0.02 K/uL (0.00-0.30); Basophils Percent Auto 0.2 % (0.0-3.0); Eosinophils Absolute Auto 0.02 K/uL (0.00-0.50); Eosinophils Percent Auto 0.2 % (0.0-7.0); Hematocrit 34.8 % (33.0-51.0); Hemoglobin* 10.9 gm/dL (12.0-16.0); Immature Granulocytes Abs Auto 0.02 K/uL (0.00-0.30); Immature Granulocytes Pct Auto 0.2 %; Lymphocytes Percent Auto 9.4 % (20-44); Mean Corpuscular HGB Conc 31 gm/dL (32-36); Mean Corpuscular Hemoglobin 28 pg (26-34); Mean Corpuscular Volume 89 fL (80-100); Monocytes Percent Auto 10.3 % (0.0-11.0); Neutrophils Percent Auto 79.7 % (42.0-72.0); Platelet Count* 170 K/uL (140-440); RDW Coefficient of Variation % 13.6 % (11.5-15.5); Red Blood Count 3.91 m/uL (4.00-5.20); White Blood Count* 10.06 K/uL (4.50-11.00)
[2024-01-07] MEDS: ACETAMINOPHEN 500 MG TABLET 1000 MG PO ×2 (06:23→11:28)
[2024-01-07 06:42] LABS: Slide Review Reflex No
--- NOTE | 2024-01-07 06:43 | PC.NURSE ---
Shift note: Pt is pleasant, alert and oriented. She tolerated regular well. Pain rated at 8 and 9 and has frequently been asking for pain medication. Pt has been making a lot of urine and oral intake has been good. Pt has not had BM yet, bowel sound active and passed gas. Dressing intact, clean and dry. vitally stable.
[2024-01-07 06:46] LABS: Potassium* 4.5 mmol/L (3.6-5.1); Sodium* 135 mmol/L (135-149)
[2024-01-07 06:49] LABS: Blood Urea Nitrogen* 12 mg/dL (7-30); Creatinine* 0.7 mg/dL (0.5-1.5); Est. Creatinine Clearance* 85.01; Estimated Glomerular Filt Rate 102 ml/min
[2024-01-07 07:22] VITALS: PULSE 66
[2024-01-07 07:40] VITALS: BP 113/56; PULSE 64; RESP 18; TEMP 36.6; O2SAT 97
[2024-01-07 07:45] VITALS: RESP 18; O2SAT 97
[2024-01-07] MEDS: RIVAROXABAN 10 MG TABLET PO (09:06)
[2024-01-07] MEDS: LEVOTHYROXINE 100 MCG TABLET 200 MCG PO (09:07)
--- NOTE | 2024-01-07 10:55 | PM.ORPN ---
Subjective Subjective Date Seen: 01/07/24 Principal diagnosis: Status postop day 1, right total hip arthroplasty - anterior approach Interval history: Patient reports doing okay. No acute events over night; however, difficult pain management overnight. Pain managed with scheduled and PRN medications, ice. DVT prophylaxis: Rivaroxaban, SCDs, walking. Denies fevers, chills, aches, N/V, CP, SOB/DONOHUE, or lightheadedness. Reports since gastric bypass, she has more loose stools thus she is not concerned with the constipation impact of oxycodone. Ortho Exam Narrative Exam Narrative: -Patient appears comfortable in bed; no apparent acute distress. Spouse present. Eating breakfast -Alert and oriented times 3 -Operative hip swollen; soft tissues supple; no obvious erythema. Ecchymosis minimal. Warmth appropriate -Surgical dressing clean, dry, intact; no obvious drainage, no erythematous streaking peripheral to the bandage. 12 in bandage on. The distal 2 in of the bandages is visualized only due to abdominal pannus -Bilateral calves soft and supple; no significant swelling, edema, tenderness, erythema, discoloration, warmth, or palpable cords -2+ DP/PT pulses, intact dermatomes and myotomes distally (5/5 strength). No numbness about the lateral femoral cutaneous nerve distribution. Const Vital Signs, click to edit/add: Vital Signs - 24 hr 01/06/24 11:00 01/06/24 11:05 01/06/24 14:26 Temperature 97.1 F L Pulse Rate 51 L 55 L 64 Pulse Rate [Left Pulse Oximeter] Respiratory Rate 14 14 12 Blood Pressure 122/73 106/59 L 108/63 Blood Pressure [Right Arm] Pulse Oximetry 100 97 97 Oxygen Delivery Method Nasal Cannula Nasal Cannula Room Air Oxygen Flow Rate 3 3 01/06/24 14:30 01/06/24 14:35 01/06/24 14:40 Temperature 97.1 F L 97.1 F L 97.1 F L Pulse Rate 62 62 58 L Pulse Rate [Left Pulse Oximeter] Respiratory Rate 11 L 21 11 L Blood Pressure 103/67 116/69 117/72 Blood Pressure [Right Arm] Pulse Oximetry 97 95 96 Oxygen Delivery Method Nasal Cannula Nasal Cannula Nasal Cannula Oxygen Flow Rate 4 4 4 01/06/24 14:45 01/06/24 14:50 01/06/24 14:55 Temperature 97.1 F L 97.1 F L 97.1 F L Pulse Rate 55 L 60 55 L Pulse Rate [Left Pulse Oximeter] Respiratory Rate 12 18 12 Blood Pressure 116/66 119/70 114/70 Blood Pressure [Right Arm] Pulse Oximetry 98 100 98 Oxygen Delivery Method Nasal Cannula Nasal Cannula Nasal Cannula Oxygen Flow Rate 2 2 2 01/06/24 15:00 01/06/24 15:05 01/06/24 15:10 Temperature 97.1 F L 97.2 F L 97.2 F L Pulse Rate 54 L 52 L 51 L Pulse Rate [Left Pulse Oximeter] Respiratory Rate 12 15 12 Blood Pressure 103/73 106/72 106/66 Blood Pressure [Right Arm] Pulse Oximetry 98 97 99 Oxygen Delivery Method Room Air Room Air Room Air Oxygen Flow Rate 01/06/24 15:15 01/06/24 15:20 01/06/24 15:25 Temperature 97.2 F L 97.2 F L 97.2 F L Pulse Rate 56 L 56 L 51 L Pulse Rate [Left Pulse Oximeter] Respiratory Rate 15 10 L 18 Blood Pressure 107/74 96/64 112/78 Blood Pressure [Right Arm] Pulse Oximetry 98 99 97 Oxygen Delivery Method Room Air Room Air Room Air Oxygen Flow Rate 01/06/24 15:30 01/06/24 15:45 01/06/24 16:00 Temperature 96.1 F L 96.1 F L 96.1 F L Pulse Rate 60 53 L 51 L Pulse Rate [Left Pulse Oximeter] Respiratory Rate 20 20 20 Blood Pressure 110/76 118/75 110/75 Blood Pressure [Right Arm] Pulse Oximetry 97 98 98 Oxygen Delivery Method Room Air Room Air Room Air Oxygen Flow Rate 01/06/24 16:15 01/06/24 16:30 01/06/24 17:00 Temperature 96.7 F L 96.7 F L 96.7 F L Pulse Rate 55 L 52 L 50 L Pulse Rate [Left Pulse Oximeter] Respiratory Rate 20 20 20 Blood Pressure 109/70 125/82 113/67 Blood Pressure [Right Arm] Pulse Oximetry 98 94 94 Oxygen Delivery Method Room Air Room Air Room Air Oxygen Flow Rate 01/06/24 17:30 01/06/24 19:48 01/06/24 20:50 Temperature 96.7 F L 97.4 F L 97.9 F Pulse Rate 69 79 69 Pulse Rate [Left Pulse Oximeter] Respiratory Rate 18 18 18 Blood Pressure 114/67 115/68 108/58 L Blood Pressure [Right Arm] Pulse Oximetry 97 95 96 Oxygen Delivery Method Room Air Room Air Room Air Oxygen Flow Rate 01/06/24 22:42 01/06/24 22:42 01/06/24 22:42 Temperature 97.9 F Pulse Rate Pulse Rate [Left Pulse Oximeter] 64 Respiratory Rate 18 18 18 Blood Pressure Blood Pressure [Right Arm] 106/67 Pulse Oximetry 96 92 Oxygen Delivery Method Room Air Room Air Oxygen Flow Rate 01/06/24 23:00 01/07/24 02:11 01/07/24 07:22 Temperature 97.7 F Pulse Rate 59 L 66 Pulse Rate [Left Pulse Oximeter] 58 L Respiratory Rate 18 Blood Pressure Blood Pressure [Right Arm] 111/60 Pulse Oximetry 92 Oxygen Delivery Method Room Air Oxygen Flow Rate 01/07/24 07:40 01/07/24 07:40 01/07/24 07:45 Temperature 97.8 F Pulse Rate Pulse Rate [Left Pulse Oximeter] 64 64 Respiratory Rate 18 18 18 Blood Pressure Blood Pressure [Right Arm] 113/56 L Pulse Oximetry 97 97 Oxygen Delivery Method Room Air Room Air Oxygen Flow Rate Assessment and Plan Assessment and plan (1) Osteoarthritis of right hip: Problem details: -POD#1 s/p right REAL - anterior approach -perioperative management including pain management and anticoagulation per Orthopedic surgery -encourage postoperative pulmonary hygiene -PT OT consults -plan to discharge home with spouse today Status: Acute (2) Hypothyroidism: Problem details: Continue levothyroxine Status: Acute (3) Restless leg syndrome, familial: Problem details: Continue ropinorole Status: Acute (4) Hyperlipidemia: Problem details: Continue statin Status: Acute (5) SVT (supraventricular tachycardia): Problem details: S/p cardiac ablation January 2021 at [facility] Continues to have occasional episodes which are not sustained Telemetry postop Status: Acute Plan - Complete 23 hour perioperative antibiotics. - PT/OT consult for education and assistance. - Social work consult for discharge planning - Prescribed analgesics as needed - DVT prophylaxis: Rivaroxaban 5 days followed by 81 mg aspirin by mouth twice daily 25 days, walking, and SCDs - Anticipation is for discharge to home with spouse 01/07/2024 if the patient remains medically stable, pain is controlled, and they are safe with mobilization.
[2024-01-07 11:00] VITALS: BP 114/66; PULSE 76; RESP 18; TEMP 37.1; O2SAT 97
--- NOTE | 2024-01-07 11:17 | PC.SOCIAL ---
business services specialist sales consult on pt for discharge planning. No needs identified. Pt plans to discharge home.
[2024-01-07] MEDS: hydrOXYzine pamoate 25 MG CAPSULE PO (11:29)
--- NOTE | 2024-01-07 12:24 | PC.NURSE ---
Discharged: pt alert, oriented and vitally stable. Pt pain rated 7-10/10 throughout morning, see mar for intervention. Pt stand by assist and tolerates well, regular diet and tolerates well. Discharge instruction given to pt and spouse, topics including symptoms worsening, follow up, and medications. Discharged home with spouse at 1157.
== END 2024-01-07 11:57 | disposition home or self-care (01) ==
LOC: OR 09:36 → MEDSURG 09:39
PROVIDERS: Visit Provider Orthopaedic Surgery Sports Medicine
PROC: (CPT 27130; principal; 2024-01-06 11:45)
DX: M16.11 Unilateral primary osteoarthritis, right hip (principal); E66.01 Morbid (severe) obesity due to excess calories; Z68.41 Body mass index [BMI] 40.0-44.9, adult; G47.00 Insomnia, unspecified; E78.5 Hyperlipidemia, unspecified; G25.81 Restless legs syndrome; E03.9 Hypothyroidism, unspecified; E11.9 Type 2 diabetes mellitus without complications; Z98.84 Bariatric surgery status; J45.40 Moderate persistent asthma, uncomplicated; F41.0 Panic disorder [episodic paroxysmal anxiety]; I47.10 Supraventricular tachycardia, unspecified; G89.18 Other acute postprocedural pain
CPT/HCPCS: 27130; 01214; 36415; 64450; 73501; 76000; 76942; 82565; 84132; 84295; 84520; 85025; 86850; 86900; 86901; 97110; 97116; 97161; 97165; 97535; A9270; C1776; J0690; J1100; J1171; J2250; J2371; J2405; J2704; J2795; J3010; J7030; P9047

== ENCOUNTER 2024-01-08 09:48 | Emergency (ER) | payer BC, SELFPAY ==
[2024-01-08] VITALS (13 sets, daily range): BP systolic 111–123; BP diastolic 63–65; PULSE 75–88; RESP 18–20; TEMP 36.9; O2SAT 91–97; BMI 39.5
--- OUTSIDE RECORDS SUMMARY | 2024-01-08 09:51 | XMS_ITS | Encounter Summary ---
Author Organization [facility] Address [address] [place] [address] Care Team Providers Care Agriculture Specialist Name Role Phone Roderick Morelos MD Unavailable [phone] Magno Wood MD Unavailable [phone] Sophie Ocasio AuD Unavailable Henny Rosales HYDRAULIC DREDGE OPERATOR FIRE CONTROL SYSTEM INSTALLER Unavailable Sharee Oliva RD Unavailable [phone] Kaykay Duarte NP Primary Care Provider Christiane Rodríguez MD Unavailable Jing Cadena HYDRAULIC DREDGE OPERATOR CERAMIST Unavailable Radha Lopez [facility] Unavailable Luis A Escobedo MD Unavailable Geri LozaC Unavailable [phone] Raina Patterson HYDRAULIC DREDGE OPERATOR FIRE CONTROL SYSTEM INSTALLER Unavailable Encounter Details Date Type Department Care Team (Late st Contact Info) Description 04/14/2023 [facility] Medical Advice [facility] [address] 4th [place] [address] Tanya Larsen RN Social History [...] documented as of this encounter Care Teams Agriculture Specialist Relationship Specialty Start Date End Date Kaykay Duarte WEB SITE ADMINISTRATOR [address] [place] [address] PCP - General 10/15/22 Roderick Morelos MD [address] [place] [id number] Cardiovascular Disease 02/03/22 Magno Wood MD [address] [place] [address] [phone] Otolaryngology 02/21/22 Sophie Ocasio AuD [address] [place], [place] [phone] Glazier Structural Glass Audiology 02/21/22 Henny Rosales APRN FIRE CONTROL SYSTEM INSTALLER [address] [place] [id number] Assigned Heart and Vascular Provider 08/09/[address] [place] [address] [phone] Registered Dietitian Dietitian, Registered 09/02/22 Christiane Rodríguez MD [address] [facility] [address] [place], [place] 226[address] Otolaryngology 11/12/22 Jing Cadena APRN CERAMIST [address] [place] [address] [address] [place], [place] [phone] Clinical Nurse Specialist Anesthesiology 01/15/23 Radha Lopez, [facility] [address] [place] [address] [phone] Pharmacist Pharmacist 01/16/23 Luis A Escobedo MD [address] [place] [address] [address] [place], [place] [phone] Assigned Surgical Provider 02/07/23 04/15/23 Geri Loza PA-C [address] [place] [address] [id number] Assigned Surgical Provider 04/16/23 Raina Patterson APRN FIRE CONTROL SYSTEM INSTALLER [address] [place] [id number] Nurse Practitioner Cardiovascular Disease 05/11/23 documented as of this encounter
--- OUTSIDE RECORDS SUMMARY | 2024-01-08 09:51 | XMS_ITS | Encounter Summary ---
Author Organization [facility] Address [address] [place] [address] Care Team Providers Care Lace Sewer Name Role Phone Roderick Morelos MD Unavailable [phone] Magno Wood MD Unavailable [phone] Sophie Ocasio AuD Unavailable Henny Rosales MOLDER SETTER FLOOR PLAN ADJUSTER Unavailable Sharee Oliva RD Unavailable [phone] Kaykay Duarte NP Primary Care Provider Christiane Rodríguez MD Unavailable [phone] Jing Cadena MOLDER SETTER WIRE WINDER Unavailable Radha Lopez [facility] Unavailable Luis A Escobedo MD Unavailable Geri LozaC Unavailable [phone] Raina Patterson MOLDER SETTER FLOOR PLAN ADJUSTER Unavailable Encounter Details Date Type Department Care Team (Late st Contact Info) Description 03/31/2023 [facility] Medical Advice [facility] [address] 4th [place] [address] Tanya Larsen RN Social History [...] documented as of this encounter Care Teams Lace Sewer Relationship Specialty Start Date End Date Kaykay Duarte NOTCHED BLADE LOADER [address] [place] [address] PCP - General 10/15/22 Roderick Morelos MD [address] [place] [address] Cardiovascular Disease 02/03/22 Magno Wood MD [address] [place] [address] [phone] Otolaryngology 02/21/22 Sophie Ocasio AuD [address] [place], [place] 278455 Materials Handling Coordinator Audiology 02/21/22 Henny Rosales APRN FLOOR PLAN ADJUSTER [address] [place] [id number] Assigned Heart and Vascular Provider 08/09/[address] [place] [address] [phone] Registered Dietitian Dietitian, Registered 09/02/22 Christiane Rodríguez MD [address] [facility] [address] [place], [place] [phone] Otolaryngology 11/12/22 Jing Cadena APRN WIRE WINDER [address] [place] [address] 450 [place], [place] [phone] Clinical Nurse Specialist Anesthesiology 01/15/23 Radha Lopez, [facility] [address] [place] [address] [phone] Pharmacist Pharmacist 01/16/23 Luis A Escobedo MD [address] [place] [address] 195 [place], [place] [phone] Assigned Surgical Provider 02/07/23 04/15/23 Geri Loza PA-C [address] [place] [address] [id number] Assigned Surgical Provider 04/16/23 Raina Patterson APRN FLOOR PLAN ADJUSTER [address] [place] [id number] Nurse Practitioner Cardiovascular Disease 05/11/23 documented as of this encounter
--- OUTSIDE RECORDS SUMMARY | 2024-01-08 09:51 | XMS_ITS | Encounter Summary ---
Author Organization [facility] Address [address] [place] [address] Care Team Providers Care Manager Fiber Name Role Phone Roderick Morelos MD Unavailable Magno Wood MD Unavailable [phone] Sophie Ocasio AuD Unavailable Henny Rosales EMERGENCY PREPAREDNESS COORDINATOR JAVA CONSULTANT Unavailable [phone] Unavailable [phone] Kaykay Duarte NP Primary Care Provider Christiane Rodríguez MD Unavailable Jing Cadena EMERGENCY PREPAREDNESS COORDINATOR MANAGER SOCIAL MEDIA Unavailable [phone] [facility] Unavailable Luis A Escobedo MD Unavailable Geri LozaC Unavailable [phone] Raina Patterson EMERGENCY PREPAREDNESS COORDINATOR JAVA CONSULTANT Unavailable Encounter Details Date Type Department Care Team (Late st Contact Info) Description 04/06/2023 [facility] Medical Advice [facility] [address] 4th [place] [address] Tanya Larsen RN Social History [...] as of this encounter Care Teams Manager Fiber Relationship Specialty Start Date End Date Kaykay Duarte GREETING CARD WRITER [address] [place] [address] PCP - General 10/15/22 Roderick Morelos MD [address] [place] [address] Cardiovascular Disease 02/03/22 Magno Wood MD [address] [place] [address] [phone] Otolaryngology 02/21/22 Sophie Ocasio AuD [address] [place], [place] [phone] Cyber Reverse Engineer Audiology 02/21/22 Henny Rosales APRN JAVA CONSULTANT [address] [place] [phone] Assigned Heart and Vascular Provider 08/09/[address] [place] [address] [phone] Registered Dietitian Dietitian, Registered 09/02/22 Christiane Rodríguez MD 420 [facility] [address] [place], [place] 477245 Otolaryngology 11/12/22 Jing Cadena APRN MANAGER SOCIAL MEDIA [address] [place] [address] 450 [place], [place] 518755 Clinical Nurse Specialist Anesthesiology 01/15/23 Radha Lopez, [facility] [address] [place] [address] [phone] Pharmacist Pharmacist 01/16/23 Luis A Escobedo MD [address] [place] [address] 195 [place], [place] [phone] Assigned Surgical Provider 02/07/23 04/15/23 Geri Loza PA-C [address] [place] [address] [phone] Assigned Surgical Provider 04/16/23 Raina Patterson APRN JAVA CONSULTANT [address] [place] [id number] Nurse Practitioner Cardiovascular Disease 05/11/23 documented as of this encounter
--- OUTSIDE RECORDS SUMMARY | 2024-01-08 09:51 | XMS_ITS | Clinical Summary ---
Author Organization [facility] Address [place], [place] [address] Care Team Providers Care Family Life Counselor Name Role Phone Brandan Burleson MD Unavailable [phone] Pcp, No Primary Care Provider Unavailabl e [...] solution (FLONASE)Indications :Purulent postnasal drainage Inhale 1 Fenton into both nostrils 2 times daily. 1 [...] Type Department Care Team Description 11/26/2023 Telephone [facility] Orthopedics - Joint Replacement Center [facility] [address] [place] [address] Jose Enrique Ricardo PA Concerns (ibuprofen and tylenol not effective for ) 11/25/2023 Telephone [facility] Orthopedics Joint Replacement [facility] [address] [place] [address] Dionisio Agudelo MD Surgery Scheduled 11/20/2023 9:50 AM CDT Office Visit [facility] Joint Replacement [facility] [address] [place] [address] Dionisio Agudelo MD Hip Pain/problem (Right Hip Pain) 11/20/2023 Transcribe Orders [facility] Joint Replacement [facility] [address] [place] [address] Dionisio Agudelo MD 11/20/2023 Travel 11/15/2023 3:42 PM CDT - 11/15/2023 6:12 PM CDT Emergency [address] [address] Monique Ott PA Pelvic joint pain, right [...] age 21-65 05/21/2018 6 (Completed outside of [facility]), 05/22/2011 Zoster (shingles) series for age 50+ (1 of 2) 2018 Lipids for age 45-75 02/10/2021 02/11/2016, 06/29/19 15 COVID-19 vaccine series ( season) 2023 11/28/2020, 06/19/2020 Influenza for age 50-64 11/22/2023 12/22/19 16, 01/01/2015, 01/16/2014, Additional history exists Pneumococcal series for age 6-64 Aged Out No longer eligible based on patient's age to complete this topic Medical Devices Implanted Type Area Net Software Developer Device Identifier Shelf Expiration Date Model / Serial / Lot Prosth Shiva [id number] - [id number] Implanted:Qty: 1 on 05/20/2005 at [facility] Ent Implants Right: Ear GYRUS ENT 61# / / Procedures Procedure Name Priority Date/Time Associated Diagnosis Comments XR ANKLE 3 VIEWS RIGHT STAT 11/15/2023 5:15 PM CDT XR KNEE 3 VIEWS RIGHT STAT 11/15/2023 5:13 PM CDT XR HIP 2 OR 3 VIEWS W PELVIS RIGHT STAT 11/15/2023 5:12 PM CDT LIPID PANEL W REFLEX MEASURED LDL Routine 02/11/2016 2:52 PM CLINICAL RESOURCE NURSE Hyperlipidemia, unspecified hyperlipidemia type XR MAMMO RAVI BILAT SCREEN Routine 01/30/2016 9:52 AM CLINICAL RESOURCE NURSE Visit for screening mammogram from Last 3 [...] W REFLEX MEASURED LDL (02/11/2016 2:52 PM CLINICAL RESOURCE NURSE) CHOLESTEROL,TOTAL 271(H) 100 - 199 mg/dL 02/11/2016 8:04 PM CLINICAL RESOURCE NURSE [facility] TRIGLYCERIDES 178(H) <150 mg/dL 02/11/2016 8:04 PM CLINICAL RESOURCE NURSE [facility] HDL CHOLESTEROL 49 >40 mg/dL 6 8:04 PM CLINICAL RESOURCE NURSE [facility] NON-HDL CHOLESTEROL 222(H) <145 mg/dl 02/11/2016 8:04 PM CLINICAL RESOURCE NURSE [facility] CHOL/HDL RATIO 5.53(H) <4.50 02/11/2016 8:04 PM CLINICAL RESOURCE NURSE [facility] LDL CHOLESTEROL 186(H) <=130 mg/dL 02/11/2016 8:04 PM CLINICAL RESOURCE NURSE [facility] PATIENT STATUS NON-FASTI NG 02/11/2016 8:04 PM CLINICAL RESOURCE NURSE [facility] Blood BLOOD SPECIMEN / Unknown Venipuncture / Unknown 02/11/2016 2:52 PM CLINICAL RESOURCE NURSE 02/11/2016 2:52 PM CLINICAL RESOURCE NURSE Edda VERGARA [facility] [address] [place] [address], [place] * XR MAMMO RAVI SCREEN BILAT (01/30/2016 9:52 AM CLINICAL RESOURCE NURSE) Anatomical Region Laterality Modality BREASTS, Breast Left, Breast Right Bilateral Mammography Impressions 01/30/2016 11:17 AM CLINICAL RESOURCE NURSE ??There is no radiographic evidence for malignancy. ??Recommend annual mammograms. A lay language report of this examination will be provided to the patient. MAMMOGRAM ASSESSMENT: ??ACR 2 Benign Narrative 01/30/2016 11:17 AM CLINICAL RESOURCE NURSE XR MAMMO RAVI SCREEN JANINE [[id number]] CLINICAL HISTORY: ??This is an asymptomatic 45 y.o. patient. INDICATION FOR EXAM: Mammogram Screening. TECHNIQUE: CC & MLO views were obtained. ??This digital study was evaluated with the assistance of Computer-Aided Detection. Breast Tomosynthesis was used in interpretation. COMPARISON FILMS: Yes 02/10/15 [facility] 01/18/14 [facility] FINDINGS: ??Mammographically, the breast tissue has scattered fibroglandular densities. ??No suspicious masses or microcalcifications. ?? Benign appearing calcifications within both breasts. Brandan Burleson MD MAMMO from Last 3 Months or Most Recently Relevant to Health Maintenance Advance Directives * Full Code (Latest Code Status on File) Date Activated Date Inactivated Comments 05/20/2005 7:01 AM 05/20/2005 4:28 PM Care Teams Family Life Counselor Relationship Specialty Start Date End Date Pcp, No . PCP - General 03/24/20 Brandan Burleson MD Gynecology Obstetrics and Gynecology 09/19/15
--- OUTSIDE RECORDS SUMMARY | 2024-01-08 09:51 | XMS_ITS | Encounter Summary ---
Author Organization [facility] Address Formerly [facility] [place] [address] Care Team Providers Care Lab Scientist Name Role Phone Roderick Morelos MD Unavailable [phone] Magno Wood MD Unavailable [phone] Sophie Ocasio AuD Unavailable [phone] Henny Rosales BIOLOGIST AIDE APPIAN BPM DEVELOPER Unavailable Sharee Oliva RD Unavailable [phone] Kaykay Duarte NP Primary Care Provider [phone] Christiane Rodríguez MD Unavailable Jing Cadena BIOLOGIST AIDE SHOPPING INVESTIGATOR Unavailable Radha Lopez [facility] Unavailable Luis A Escobedo MD Unavailable Geri LozaC Unavailable [phone] Raina Patterson BIOLOGIST AIDE APPIAN BPM DEVELOPER Unavailable Encounter Details Date Type Department Care Team (Late st Contact Info) Description 03/17/2023 MyC Medical Advice UR PREOP/PHASE II [address] [place] [address] Pearl Rocha, SKIP Social History [...] documented as of this encounter Care Teams Lab Scientist Relationship Specialty Start Date End Date Kaykay Duarte WINDOW ASSEMBLER [address] [place] [address] PCP - General 10/15/22 Roderick Morelos MD [address] [place] [address] Cardiovascular Disease 02/03/22 Magno Wood MD [address] [place] [address] 782075 Otolaryngology 02/21/22 Sophie Ocasio AuD [address] [place], [place] 887585 [facility] 02/21/22 Henny Rosales APRN APPIAN BPM DEVELOPER [address] [place] [id number] Assigned Heart and Vascular Provider 08/09/[address] [place], [place] 0[address] Registered Dietitian Dietitian, Registered 09/02/22 Christiane Rodríguez MD 420 [facility] 396 [place], [place] [address] Otolaryngology 11/12/22 Jing Cadena APRN SHOPPING INVESTIGATOR 420 [facility] 450 [place], [place] [address] Clinical Nurse Specialist Anesthesiology 01/15/23 Radha Lopez [facility] [address] [place] [address] 938705 Pharmacist Pharmacist 01/16/23 Luis A Escobedo MD 420 [facility] 195 [place], [place] 784035 Assigned Surgical Provider 02/07/23 04/15/23 Geri Loza PA-C [address] [place] [address] 253425 Assigned Surgical Provider 04/16/23 Raina Patterson, GINA APPIAN BPM DEVELOPER [address] [place] 039285 Nurse Practitioner Cardiovascular Disease 05/11/23 documented as of this encounter
--- OUTSIDE RECORDS SUMMARY | 2024-01-08 09:51 | XMS_ITS | Referral Summary ---
Author Organization [facility] Address [address] [place] [address] Care Team Providers Care Senior Benefits Analyst Name Role Phone Roderick Morelos MD Unavailable [phone] Magno Wood MD Unavailable [phone] Sophie Ocasio AuD Unavailable [phone] Henny Rosales GEAR GENERATOR SET UP OPERATOR BUSINESS CONTINUITY PLANNER Unavailable Sharee Oliva RD Unavailable [phone] Kaykay Duarte NP Primary Care Provider Christiane Rodríguez MD Unavailable [phone] Jing Cadena GEAR GENERATOR SET UP OPERATOR TRANSPORTATION ATTENDANT Unavailable Radha Lopez [facility] Unavailable Geri Loza PA-C Unavailable Raina Patterson APRN BUSINESS CONTINUITY PLANNER Unavailable Encounters Date Type Department Care Team Description 10/18/2023 [facility] [address] [address] Radha Lopez, [facility] from Last 3 Months Allergies Active [...] & Plan: S/p gastric sleeve 08/09/2020 at [facility]. No post op complications. 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 Gastric sleeve was completed 08/09/2020 at [facility] with Dr. Barillas. Starting weight 338lb, [...] Comments Blood Pressure 124/78 03/24/2023 10:20 AM PET HANDLER Pulse 70 03/24/2023 10:20 AM PET HANDLER Temperature 36.8 ??C (98.2 ??F) 03/24/2023 10:[address] Respiratory Rate 16 03/24/2023 10:20 AM PET HANDLER Oxygen Saturation 99% 03/24/2023 10:20 AM PET HANDLER Inhaled Oxygen Concentration - - Weight 120.7 kg (266 lb) 04/23/2023 11:55 AM PET HANDLER Height 167.6 cm (5' 6) 04/23/2023 11:55 AM PET HANDLER Body Mass Index 42.93 04/23/2023 11:55 AM PET HANDLER Plan of Treatment Not on file Goals [...] FREE T4 REFLEX Add-On 02/28/2021 1:00 AM PET HANDLER 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 [...] with free T4 reflex (02/28/2021 1:00 AM PET HANDLER) TSH 0.86 0.40 - 4.00 mU/L 03/01/2021 4:13 PM PET HANDLER LABORATORY Blood STRUCTURE OF RIGHT UPPER LIMB / Unknown Venipuncture / Unknown 02/28/2021 1:00 AM PET HANDLER 02/28/2021 1:08 AM PET HANDLER Parth Ellis MD LAB - BLOOD ORD ERABLES LABORATORY [facility] Acute Care Lab [address] [facility] Lab (1st floor, no room number) [place] [address], [facility] [phone] from Last 3 Months or Most Recently Relevant to Health Maintenance Additional Health Concerns Active Problems Noted Date Diagnosed Date BRIAN PATHWAY SURGERY IS SCHEDULED 10/15/2022 Advance Directives For more information, please contact: [phone] * Full Code (Latest Code Status on [...] 12:01 PM 05/01/2018 3:45 AM Care Teams Senior Benefits Analyst Relationship Specialty Start Date End Date Kaykay Duarte, BLASTING ENTRYMAN [address] [place] [address] PCP - General 10/15/22 Roderick Morelos MD [address] [place] [address] Cardiovascular Disease 02/03/22 Magno Wood MD [address] [place] [address] [address] [place], [place] 04[address] Otolaryngology 02/21/22 Sophie Ocasio AuD [address] [place] [address] 849005 Roll Mechanic Audiology 02/21/22 Henny Rosales APRN BUSINESS CONTINUITY PLANNER [address] [place] [id number] Assigned Heart and Vascular Provider 08/09/[address] [place], [place] 732375 Registered Dietitian Dietitian, Registered 09/02/22 Christiane Rodríguez MD [address] [facility] [address] [place], [place] [address] Otolaryngology 11/12/22 Jing Cadena, GEAR GENERATOR SET UP OPERATOR TRANSPORTATION ATTENDANT [address] [facility] [address] [place], [place] 88[address] Clinical Nurse Specialist Anesthesiology 01/15/23 Radha Lopez, [facility] [address] [place] [address] 434475 Pharmacist Pharmacist 01/16/23 Geri Loza PA-C [address] [place] [address] 232055 Assigned Surgical Provider 04/16/23 Raina Patterson APRN BUSINESS CONTINUITY PLANNER [address] [place], [place] [address] Nurse Practitioner Cardiovascular Disease 05/11/23
--- OUTSIDE RECORDS SUMMARY | 2024-01-08 09:51 | XMS_ITS | Encounter Summary ---
Author Organization [facility] Address [address] [place] [address] Care Team Providers Care Planning Division Superintendent Name Role Phone Roderick Morelos MD Unavailable [phone] Magno Wood MD Unavailable [phone] Sophie Ocasio AuD Unavailable Henny Rosales ACTIVITY AID SOFTWARE LICENSING EXECUTIVE Unavailable Sharee Oliva RD Unavailable [phone] Kaykay Duarte NP Primary Care Provider Christiane Rodríguez MD Unavailable [phone] Jing Cadena ACTIVITY AID VARYING EXCEPTIONALITIES TEACHER Unavailable Radha Lopez [facility] Unavailable Luis A Escobedo MD Unavailable Geri LozaC Unavailable [phone] Raina Patterson ACTIVITY AID SOFTWARE LICENSING EXECUTIVE Unavailable [phone] Encounter Details Date Type Department Care Team (Late st Contact Info) Description 03/24/2023 [facility] Medical Advice [facility] [address] 4th [place] [address] Angélica Milligan Social History Tobacco [...] documented as of this encounter Care Teams Planning Division Superintendent Relationship Specialty Start Date End Date Kaykay Duarte, DESKTOP PUBLISHING SPECIALIST [address] [place] [address] PCP - General 10/15/22 Roderick Morelos MD [address] [place] [address] Cardiovascular Disease 02/03/22 Magno Wood MD [address] [place] [address] [address] [place], [place] 6[address] Otolaryngology 02/21/22 Sophie Ocasio AuD [address] [place], [place] 885975 Verification Engineer Audiology 02/21/22 Henny Rosales APRN SOFTWARE LICENSING EXECUTIVE [address] [place] [phone] Assigned Heart and Vascular Provider 08/09/[address] [place], [place] [address] Registered Dietitian Dietitian, Registered 09/02/22 Christiane Rodríguez MD 420 [facility] 396 [place], [place] [address] Otolaryngology 11/12/22 Jing Cadena APRN VARYING EXCEPTIONALITIES TEACHER 420 [facility] [address] [place], [place] [address] Clinical Nurse Specialist Anesthesiology 01/15/23 Radha Lopez [facility] [address] [place] [address]195 Pharmacist Pharmacist 01/16/23 Luis A Escobedo MD 420 [facility] [address] [place], [place] 889[address] Assigned Surgical Provider 02/07/23 04/15/23 Geri Loza PA-C [address] [place] [address] 713365 Assigned Surgical Provider 04/16/23 Raina Patterson, GINA SOFTWARE LICENSING EXECUTIVE [address] [place] 158915 Nurse Practitioner Cardiovascular Disease 05/11/23 documented as of this encounter
--- OUTSIDE RECORDS SUMMARY | 2024-01-08 09:51 | XMS_ITS | Clinical Summary ---
Author Organization [facility] Address [address] [place] [address] Care Team Providers Care General Office Assistant Name Role Phone Roderick Morelos MD Unavailable Magno Wood MD Unavailable [phone] Sophie Ocasio AuD Unavailable [phone] Henny Rosales SUPERVISOR VACUUM METALIZING TRAFFIC WAREHOUSE SUPERVISOR Unavailable Sharee Oliva RD Unavailable [phone] Kaykay Duarte NP Primary Care Provider Christiane Rodríguez MD Unavailable Jing Cadena SUPERVISOR VACUUM METALIZING NOVELTY WORKER Unavailable Radha Lopez [facility] Unavailable [phone] Geri LozaC Unavailable Raina Patterson APRN TRAFFIC WAREHOUSE SUPERVISOR Unavailable Allergies Active Allergy Reactions Criticality Noted [...] Care Team Description 10/18/2023 MyC Medical Advice [facility] [address] [address] Radha Lopez [facility] from Last 3 Months Immunizations [...] Comments Blood Pressure 124/78 03/24/2023 10:20 AM BASKET HAND BRAIDER Pulse 70 03/24/2023 10:20 AM BASKET HAND BRAIDER Temperature 36.8 ??C (98.2 ??F) 03/24/2023 10:[address] Respiratory Rate 16 03/24/2023 10:20 AM BASKET HAND BRAIDER Oxygen Saturation 99% 03/24/2023 10:20 AM BASKET HAND BRAIDER Inhaled Oxygen Concentration - - Weight 120.7 kg (266 lb) 04/23/2023 11:55 AM BASKET HAND BRAIDER Height 167.6 cm (5' 6) 04/23/2023 11:55 AM BASKET HAND BRAIDER Body Mass Index 42.93 04/23/2023 11:55 AM BASKET HAND BRAIDER Plan of Treatment Health Maintenance Due Date [...] BRIAN PATHWAY SURGERY IS SCHEDULED Care Plan [facility] PATHWAY SURGERY IS SCHEDULED No [...] FREE T4 REFLEX Add-On 02/28/2021 1:00 AM BASKET HAND BRAIDER 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 [...] with free T4 reflex (02/28/2021 1:00 AM BASKET HAND BRAIDER) TSH 0.86 0.40 - 4.00 mU/L 03/01/2021 4:13 PM BASKET HAND BRAIDER LABORATORY Blood STRUCTURE OF RIGHT UPPER LIMB / Unknown Venipuncture / Unknown 02/28/2021 1:00 AM BASKET HAND BRAIDER 02/28/2021 1:08 AM BASKET HAND BRAIDER Parth Ellis MD LAB - BLOOD ORD ERABLES LABORATORY [facility] Acute Care Lab [address] Lab (1st floor, no room number) [place] [address], [facility] [phone] from Last 3 Months or Most Recently Relevant to Health Maintenance Additional Health Concerns Active Problems Noted Date Diagnosed Date BRIAN PATHWAY SURGERY IS SCHEDULED 10/15/2022 Advance Directives For more information, please contact: [phone] * Full Code (Latest Code Status on [...] 12:01 PM 05/01/2018 3:45 AM Care Teams General Office Assistant Relationship Specialty [place] [address] [place] [address] PCP - General 10/15/22 Roderick Morelos MD [address] [place], [place] [address] Cardiovascular Disease 02/03/22 Magno Wood MD 420 [facility] 396 [place], [place] [address] Otolaryngology 02/21/22 Sophie Ocasio AuD 909 [place] [address] Field Artillery Targeting Technician Audiology 02/21/22 Henny Rosales APRN TRAFFIC WAREHOUSE SUPERVISOR [address] [place] [address] Assigned Heart and Vascular Provider 08/09/[address] [place], [place] 49[address]35 Registered Dietitian Dietitian, Registered 09/02/22 Christiane Rodríguez MD 420 [facility] 396 [place], [place] 8[address] Otolaryngology 11/12/22 Jing Cadena SUPERVISOR VACUUM METALIZING NOVELTY WORKER 420 [facility] 450 [place], [place] 87[address] Clinical Nurse Specialist Anesthesiology 01/15/23 Radha Lopez, [facility] 9 [place], [place] 4440[address] Pharmacist Pharmacist 01/16/23 Geri Loza PA-C 9 [place], [place] 130295 Assigned Surgical Provider 04/16/23 Raina Patterson APRN TRAFFIC WAREHOUSE SUPERVISOR [address] [place] [address] Nurse Practitioner Cardiovascular Disease 05/11/23
--- OUTSIDE RECORDS SUMMARY | 2024-01-08 09:51 | XMS_ITS | Encounter Summary ---
Author Organization [facility] Address [address] [place] [address] Care Team Providers Care Audio Recording Engineer Name Role Phone Roderick Morelos MD Unavailable [phone] Magno Wood MD Unavailable [phone] Sophie Ocasio AuD Unavailable Henny Rosales HOUSE SUPERVISOR INVESTIGATOR Unavailable Sharee Oliva [address] Unavailable [phone] Kaykay Duarte NP Primary Care Provider Christiane Rodríguez MD Unavailable Jing Cadena HOUSE SUPERVISOR CAR MANAGER Unavailable Radha Lopez [facility] Unavailable Geri LozaC Unavailable Raina Patterson APRN INVESTIGATOR Unavailable Encounter Details Date Type Department Care Team (Late st Contact Info) Description 04/23/2023 [facility] Weight Management Clinic [address] 4th [place] [address] Kang Griffiths Social History Tobacco [...] documented as of this encounter Care Teams Audio Recording Engineer Relationship Specialty Start Date End Date Kaykay Duarte AUDITING MANAGER [address] [place] [address] PCP - General 10/15/22 Roderick Morelos MD [address] [place] [id number] Cardiovascular Disease 02/03/22 Magno Wood MD 420 [facility] 396 [place], [place] [address]145 Otolaryngology 02/21/22 Sophie Ocasio AuD [address] [place], [place] 4[address] Television And Radio Repairer Audiology 02/21/22 Henny Rosales APRN INVESTIGATOR [address] [place] [phone] Assigned Heart and Vascular Provider 08/09/[address] [place], [place] [address] Registered Dietitian Dietitian, Registered 09/02/22 Christiane Rodríguez MD [address] [facility] 396 [place], [place] 8335[address] Otolaryngology 11/12/22 Jing Cadena APRN CAR MANAGER [address] [facility] 450 [place], [place] 248[address] Clinical Nurse Specialist Anesthesiology 01/15/23 Radha Lopez, [facility] [address] [place] [address] 995635 Pharmacist Pharmacist 01/16/23 Geri Loza PA-C [address] [place] [address] 069825 Assigned Surgical Provider 04/16/23 Raina Patterson APRN INVESTIGATOR [address] [place] 592645 Nurse Practitioner Cardiovascular Disease 05/11/23 documented as of this encounter
--- OUTSIDE RECORDS SUMMARY | 2024-01-08 09:51 | XMS_ITS | Encounter Summary ---
Author Organization [facility] Address [address] [place] [address] Care Team Providers Care Hyperbaric Technologist Name Role Phone Roderick Morelos MD Unavailable [phone] Magno Wood MD Unavailable [phone] Sophie Ocasio AuD Unavailable Henny Rosales HELPDESK ANALYST TIRE BLADDER MAKER Unavailable Sharee Oliva RD Unavailable [phone] Kaykay Duarte STONE POLISHER Primary Care Provider Christiane Rodríguez MD Unavailable [phone] Jing Cadena HELPDESK ANALYST VBA PROGRAMMER Unavailable Radha Lopez [facility] Unavailable [phone] Luis A Escobedo MD Unavailable Geri LozaC Unavailable [phone] Raina Patterson HELPDESK ANALYST TIRE BLADDER MAKER Unavailable Encounter Details Date Type Department Care Team (Late st Contact Info) Description 03/21/2023 [facility] Medical Advice [facility] Management [facility] [place] [address] [facility] 4th [place] [address] Luis A Escobedo MD [address] [place] [address] 195 [place] [address] Social History Tobacco Use Types Packs/Day Years [...] documented as of this encounter Care Teams Hyperbaric Technologist Relationship Specialty Start Date End Date Kaykay Duarte, STONE POLISHER [address] [facility] [place] [id number] PCP - General 10/15/22 Roderick Morelos MD [address] [place], [place] [address] Cardiovascular Disease 02/03/22 Magno Wood MD 420 [facility] 396 [place], [place] 289505 Otolaryngology 02/21/22 Sophie Ocasio AuD [address] [place], [place] 2042[address] Harvest Worker Audiology 02/21/22 Henny Rosales APRN TIRE BLADDER MAKER [address] [place] [id number] Assigned Heart and Vascular Provider 08/09/[address] [place] [address] Registered Dietitian Dietitian, Registered 09/02/22 Christiane Rodríguez MD 420 [facility] 396 [place], [place] 4[address] Otolaryngology 11/12/22 Jing Cadena APRN VBA PROGRAMMER 420 [facility] 450 [place], [place] [address] Clinical Nurse Specialist Anesthesiology 01/15/23 Radha Lopez, [facility] 9[address] [place], [place] [address] Pharmacist Pharmacist 01/16/23 Luis A Escobedo MD 420 [facility] 195 [place] [address] Assigned Surgical Provider 02/07/23 04/15/23 Geri Loza PA-C 909 [place] [address] Assigned Surgical Provider 04/16/23 Raina Patterson APRN TIRE BLADDER MAKER [address] [place] [id number] Nurse Practitioner Cardiovascular Disease 05/11/23 documented as of this encounter
--- OUTSIDE RECORDS SUMMARY | 2024-01-08 09:51 | XMS_ITS | Encounter Summary ---
Author Organization [place] Address [address] [place] [address] 0[address] Care Team Providers Care Roll Reclaimer Name Role Phone Roderick Morelos MD Unavailable [phone] Magno Wood MD Unavailable [phone] Sophie Ocasio AuD Unavailable Henny Rosales INTERNATIONAL STUDENT COUNSELOR CLOTH MEASURER Unavailable [phone] Unavailable [phone] Kaykay Duarte NP Primary Care Provider [phone] Christiane Rodríguez MD Unavailable [phone] Jing Cadena INTERNATIONAL STUDENT COUNSELOR CHILD CARE AIDE Unavailable [phone] Radha Lopez [facility] Unavailable Luis A Escobedo MD Unavailable Geri LozaC Unavailable [phone] Raina Patterson INTERNATIONAL STUDENT COUNSELOR CLOTH MEASURER Unavailable [phone] Encounter Details Date Type Department Care Team (Late st Contact Info) Description 04/02/2023 [facility] [address] 4th [place] [address] Tanya Larsen RN Social History [...] documented as of this encounter Care Teams Roll Reclaimer Relationship Specialty Start Date End Date Kaykay Duarte TRANSMISSION ENGINEER [address] [place] [address] PCP - General 10/15/22 Roderick Morelos MD [address] [place] [address] Cardiovascular Disease 02/03/22 Magno Wood MD [address] [place] [address] [phone] Otolaryngology 02/21/22 Sophie Ocasio AuD 909 [place], [place] 939505 Crusher Loader Operator Audiology 02/21/22 Henny Rosales APRN CLOTH MEASURER [address] [place] [id number] Assigned Heart and Vascular Provider 08/09/[address] [place] [address] 245975 Registered Dietitian Dietitian, Registered 09/02/22 Christiane Rodríguez MD 420 [facility] 396 [place], [place] 535655 Otolaryngology 11/12/22 Jing Cadena APRN CHILD CARE AIDE [address] [place] [address] 450 [place], [place] 911085 Clinical Nurse Specialist Anesthesiology 01/15/23 Radha Lopez, [facility] [address] [place] [address] 033125 Pharmacist Pharmacist 01/16/23 Luis A Escobedo MD [address] [place] [address] 195 [place], [place] 984745 Assigned Surgical Provider 02/07/23 04/15/23 Geri Loza PA-C [address] [place] [address] 583065 Assigned Surgical Provider 04/16/23 Raina Patterson APRN CLOTH MEASURER [address] [place] 547435 Nurse Practitioner Cardiovascular Disease 05/11/23 documented as of this encounter
--- OUTSIDE RECORDS SUMMARY | 2024-01-08 09:51 | XMS_ITS | Encounter Summary ---
Author Organization [place] Address [address] [place] [address] 00[address] Care Team Providers Care Brick Chimney Supervisor Name Role Phone Roderick Morelos MD Unavailable [phone] Magno Wood MD Unavailable [phone] Sophie Ocasio AuD Unavailable Henny Rosales OSTOMY NURSE DRY CLEANING MANAGER Unavailable Sharee Oliva [address] Unavailable [phone] Kaykay Duarte NP Primary Care Provider Christiane Rodríguez MD Unavailable [phone] Jing Cadena OSTOMY NURSE ANATOMY AND PHYSIOLOGY INSTRUCTOR Unavailable Radha Lopez [facility] Unavailable Geri Loza PA-C Unavailable Raina Patterson APRN DRY CLEANING MANAGER Unavailable Encounter Details Date Type Department Care Team (Late st Contact Info) Description 10/18/2023 [facility] Clinic [address] [address] Radha Lopez, [address] [address] Social History Tobacco Use Types [...] as of this encounter Care Teams Brick Chimney Supervisor Relationship Specialty Start Date End Date Kaykay Duarte CANDY DIPPER [address] [place] [address] PCP - General 10/15/22 Roderick Morelos MD [address] [place] [address] Cardiovascular Disease 02/03/22 Magno Wood MD [address] [place] [address] 261545 Otolaryngology 02/21/22 Sophie Ocasio AuD 909 [place], [place] 363625 Generating Station Mechanic Audiology 02/21/22 Henny Rosales APRN DRY CLEANING MANAGER [address] [place] [id number] Assigned Heart and Vascular Provider 08/09/[address] [place] [address] 622755 Registered Dietitian Dietitian, Registered 09/02/22 Christiane Rodríguez MD [address] [place] [address] 396 [place], [place] 128595 Otolaryngology 11/12/22 Jing Cadena APRN ANATOMY AND PHYSIOLOGY INSTRUCTOR [address] [place] [address] 450 [place], [place] 712545 Clinical Nurse Specialist Anesthesiology 01/15/23 Radha Lopez, [facility] [address] [place] [address] 845715 Pharmacist Pharmacist 01/16/23 Geri Loza PA-C [address] [place] [address] 675435 Assigned Surgical Provider 04/16/23 Raina Patterson APRN DRY CLEANING MANAGER [address] [email or web address] [address] [place] 296205 Nurse Practitioner Cardiovascular Disease 05/11/23 documented as of this encounter
--- OUTSIDE RECORDS SUMMARY | 2024-01-08 09:51 | XMS_ITS | Encounter Summary ---
Author Organization [place] Address [address] [place] [address] 067[address] Care Team Providers Care Hotel Front Desk Clerk Name Role Phone Roderick Morelos MD Unavailable [phone] Magno Wood MD Unavailable [phone] Sophie Ocasio AuD Unavailable [phone] Henny Rosales BOAT WRAPPER HOME HEALTH CARE COORDINATOR Unavailable Sharee Oliva [address] Unavailable [phone] Kaykay Duarte NP Primary Care Provider Christiane Rodríguez MD Unavailable Jing Cadena BOAT WRAPPER PROPERTY ANALYST Unavailable Radha Lopez [facility] Unavailable Luis A Escobedo MD Unavailable Geri LozaC Unavailable [phone] Raina Patterson BOAT WRAPPER HOME HEALTH CARE COORDINATOR Unavailable [phone] Encounter Details Date Type Department Care Team (Late st Contact Info) Description 03/25/2023 [facility] Weight Management Clinic [address] 4th [place] [address] Kang Griffiths Social History Tobacco [...] Concerns Active Problems Noted Date Diagnosed Date [facility] PATHWAY SURGERY IS SCHEDULED 10/15/2022 documented as of this encounter Care Teams Hotel Front Desk Clerk Relationship Specialty Start Date End Date Kaykay Duarte KEYBOARD OPERATOR [address] [place] [address] PCP - General 10/15/22 Roderick Morelos MD [address] [place] [address] Cardiovascular Disease 02/03/22 Magno Wood MD [address] [place] [address] 824865 Otolaryngology 02/21/22 Sophie Ocasio AuD 909 [place], [place] 394195 Search Manager Audiology 02/21/22 Henny Rosales APRN HOME HEALTH CARE COORDINATOR [address] [place] [id number] Assigned Heart and Vascular Provider 08/09/[address] [place], [place] 422515 Registered Dietitian Dietitian, Registered 09/02/22 Christiane Rodríguez MD 420 [facility] 396 [place], [place] 424165 Otolaryngology 11/12/22 Jing Cadena APRN PROPERTY ANALYST 420 [facility] 450 [place], [place] 757145 Clinical Nurse Specialist Anesthesiology 01/15/23 Radha Lopez [facility] [address] [place] [address] 637985 Pharmacist Pharmacist 01/16/23 Luis A Escobedo MD 420 [facility] 195 [place], [place] 267605 Assigned Surgical Provider 02/07/23 04/15/23 Geri Loza PA-C [address] [place] [address] 447515 Assigned Surgical Provider 04/16/23 Raina Patterson, [facility] COORDINATOR [address] [place] 964615 Nurse Practitioner Cardiovascular Disease 05/11/23 documented as of this encounter
--- OUTSIDE RECORDS SUMMARY | 2024-01-08 09:52 | XMS_ITS | Encounter Summary ---
Author Organization [place] Address [address] [place] [address] Care Team Providers Care Nurse Educator Name Role Phone Roderick Morelos MD Unavailable [phone] Magno Wood MD Unavailable [phone] Sophie Ocasio AuD Unavailable Henny Rosales BASKETBALL SCOUT POSTAL SERVICE WINDOW CLERK Unavailable Sharee Oliva [address] Unavailable [phone] Kaykay Duarte SCRUFF WORKER Primary Care Provider Christiane Rodríguez MD Unavailable Chely FernandezC Unavailable [phone] Jing Cadena BASKETBALL SCOUT READING PROFESSOR Unavailable Radha Lopez [facility] Unavailable [phone] Luis A Escobedo MD Unavailable [phone] Geri LozaC Unavailable Raina Patterson BASKETBALL SCOUT POSTAL SERVICE WINDOW CLERK Unavailable [phone] Encounter Details Date Type Department Care Team (Late st Contact Info) Description 01/15/2023 [facility] Weight Management Clinic [address]th [place] [address] Geri Loza PA-C 909 [place], [place] 484795 Social History Tobacco Use Types Packs/Day Years [...] Lopez, PharmD, BCACP Medication Therapy Management Pharmacist [facility] * Telephone Encounter - [...] documented as of this encounter Care Teams Nurse Educator Relationship Specialty [place] [address] [place] [address] PCP - General 10/15/22 Roderick Morelos MD [address] [place] [address] Cardiovascular Disease 02/03/22 Magno Wood MD [address] [place] [address] 221995 Otolaryngology 02/21/22 Sophie Ocasio AuD [address] [place] [address] 852645 Mining Speculator Audiology 02/21/22 Henny Rosales APRN POSTAL SERVICE WINDOW CLERK [address] [place] [address]17802108 Assigned Heart and Vascular Provider 08/09/[address] [place] [address] [phone] Registered Dietitian Dietitian, Registered 09/02/22 Christiane Rodríguez MD [address] [place] [address] 226515 Otolaryngology 11/12/22 Chely Fernandez PA-C [address] [place] [address] 47240 Assigned Surgical Provider 11/29/22 02/06/23 Jing Cadena APRN READING PROFESSOR 420 [facility] 450 [place] [address] Clinical Nurse Specialist Anesthesiology 01/15/23 Radha Lopez, [facility] 909 [place] [address] Pharmacist Pharmacist 01/16/23 Luis A Escobedo MD 420 [facility] 195 [place], [place] 670675 Assigned Surgical Provider 02/07/23 04/15/23 Geri Loza PA-C [address] [place] [address] Assigned Surgical Provider 04/16/23 Raina Patterson APRN POSTAL SERVICE WINDOW CLERK [address] [place] 940005 Nurse Practitioner Cardiovascular Disease 05/11/23 documented as of this encounter
--- OUTSIDE RECORDS SUMMARY | 2024-01-08 09:52 | XMS_ITS | Encounter Summary ---
Author Organization [place] Address [address] [place] [address] 39639 Care Team Providers Care Household Worker Name Role Phone Roderick Morelos MD Unavailable [phone] Magno Wood MD Unavailable [phone] Sophie Ocasio Unavailable Henny Rosales MANAGER TECHNICAL DIRECTOR ORACLE Unavailable Sharee Oliva RD Unavailable [phone] Kaykay Duarte POWDER SHOVELER Primary Care Provider Christiane Rodríguez MD Unavailable Chely FernandezC Unavailable [phone] Jing Cadena MANAGER TECHNICAL CRANE CREW SUPERVISOR Unavailable Radha Lopez [facility] Unavailable Luis A Escobedo MD Unavailable [phone] Geri LozaC Unavailable Raina Patterson MANAGER TECHNICAL DIRECTOR ORACLE Unavailable Reason for Visit * Reason Onset Date Comments Call Back 01/15/2023 See note. Encounter Details Date Type Department Care Team (Late st Contact Info) Description 01/15/2023 [facility] Surgery [facility] [address] [facility] [address] 4th [place] [phone] Luis A Escobedo MD 420 [facility] 195 [place], [place] 241385 Call Back (See note./) Social History Tobacco [...] or updates. Please contact Daisy Huynh, clinical support tech, if clinic appt slots are not available. Henny, The patient has been informed that you will contact them about the preop class. Thank you! Summer, RN Radha Dominguez, MS, soda worker Weight Management Nurse Coordinator MyChart messages to Surgery Clinic Wls Nurses - Contact Center Nurse Line and Clinic [phone] documented in this encounter Plan of Treatment [...] documented as of this encounter Care Teams Household Worker Relationship Specialty Start Date End Date Kaykay Duarte, POWDER SHOVELER [address] [place] [address] PCP - General 10/15/22 Roderick Morelos MD [address] [place], [place] 774435 Cardiovascular Disease 02/03/22 Magno Wood MD [address] [place] [address] 586025 Otolaryngology 02/21/22 Sophie Ocasio AuD [address] [place] [address] 493925 Multi Media Specialist Audiology 02/21/22 Henny Rosales, MANAGER TECHNICAL DIRECTOR ORACLE [address] [place] [phone] Assigned Heart and Vascular Provider 08/09/[address] [place] [address] 602575 Registered Dietitian Dietitian, Registered 09/02/22 Christiane Rodríguez MD 420 [facility] 396 [place], [place] 282275 Otolaryngology 11/12/22 Chely Fernandez PA-C 909 [place], [place] 081915 Assigned Surgical Provider 11/29/22 02/06/23 Jing Cadena APRN CRANE CREW SUPERVISOR 420 [facility] 450 [place], [place] 022955 Clinical Nurse Specialist Anesthesiology 01/15/23 Radha Lopez, [facility] 909 [place], [place] 186755 Pharmacist Pharmacist 01/16/23 Luis A Escobedo MD 420 [facility] 195 [place], [place] 898615 Assigned Surgical Provider 02/07/23 04/15/23 Geri Loza PA-C 909 [place], [place] 188375 Assigned Surgical Provider 04/16/23 Raina Patterson, GINA DIRECTOR ORACLE [address] [place] [address] [place] 620605 Nurse Practitioner Cardiovascular Disease 05/11/23 documented as of this encounter
--- OUTSIDE RECORDS SUMMARY | 2024-01-08 09:52 | XMS_ITS | Encounter Summary ---
Author Organization [place] Address [address] [place] [address] 20332 Care Team Providers Care Party Plan Sales Consultant Name Role Phone Roderick Morelos MD Unavailable [phone] Magno Wood MD Unavailable [phone] Sophie Ocasio AuD Unavailable [phone] Henny Rosales WIRELESS DEVELOPMENT MANAGER ADVERTISING PRODUCTION MANAGER Unavailable [phone] Unavailable [phone] Kaykay Duarte CONFIGURATION ENGINEER Primary Care Provider Christiane Rodríguez MD Unavailable Chely FernandezC Unavailable Jing Cadena WIRELESS DEVELOPMENT MANAGER TRIAL JUDGE Unavailable Radha Lopez [facility] Unavailable Luis A Escobedo MD Unavailable [phone] Geri LozaC Unavailable [phone] Raina Patterson WIRELESS DEVELOPMENT MANAGER ADVERTISING PRODUCTION MANAGER Unavailable [phone] Encounter Details Date Type Department Care Team (Late st Contact Info) Description 01/07/2023 [facility] [address]th [place] [phone] Daniela [place] Social History Tobacco Use Types [...] documented as of this encounter Care Teams Party Plan Sales Consultant Relationship Specialty [place] [address] [place] [address] PCP - General 10/15/22 Roderick Morelos MD [address] [place] [address] Cardiovascular Disease 02/03/22 Magno Wood MD [address] [place] [address] 527275 Otolaryngology 02/21/22 Sophie Ocasio AuD [address] [place] [address] 028145 Manager Programming Audiology 02/21/22 Henny Rosales APRN ADVERTISING PRODUCTION MANAGER [address] [place] [address]108 Assigned Heart and Vascular Provider 08/09/[address] [place] [address] 296735 Registered Dietitian Dietitian, Registered 09/02/22 Christiane Rodríguez MD [address] [place] [address] 396 [place], [place] 639845 Otolaryngology 11/12/22 Chely Frenandez PA-C [address] [place] [address] 170485 Assigned Surgical Provider 11/29/22 02/06/23 Jing Cadena APRN TRIAL JUDGE [address] [place] [address] 450 [place], [place] 907845 Clinical Nurse Specialist Anesthesiology 01/15/23 Radha Lopez, [facility] [address] [place] [address] [phone] Pharmacist Pharmacist 01/16/23 Luis A Escobedo MD [address] [place] [address] 195 [place], [place] 706145 Assigned Surgical Provider 02/07/23 04/15/23 Geri Loza PA-C [address] [place] [address] 095705 Assigned Surgical Provider 04/16/23 Raina Patterson APRN ADVERTISING PRODUCTION MANAGER [address] [facility] [address] [place], [place] 371085 Nurse Practitioner Cardiovascular Disease 05/11/23 documented as of this encounter
--- OUTSIDE RECORDS SUMMARY | 2024-01-08 09:52 | XMS_ITS | Encounter Summary ---
Author Organization [place] Address [address] [place] [address] Care Team Providers Care Optical Laboratory Manager Name Role Phone Roderick Morelos MD Unavailable [phone] Magno Wood MD Unavailable [phone] Sophie Ocasio AuD Unavailable Henny Rosales MAILMASTER FIRER LOW PRESSURE Unavailable Sharee Oliva [address] Unavailable [phone] Kaykay Duarte NP Primary Care Provider Christiane Rodríguez MD Unavailable [phone] Jing Cadena MAILMASTER FINANCIAL REPORTING MANAGER Unavailable Radha Lopez [facility] Unavailable Luis A Escobedo MD Unavailable Geri LozaC Unavailable [phone] Raina Patterson MAILMASTER FIRER LOW PRESSURE Unavailable Encounter Details Date Type Department Care Team (Late st Contact Info) Description 03/11/2023 [facility] Medical Advice Initial Department [facility] [place] Social History Tobacco Use Types Packs/Day Years [...] documented as of this encounter Care Teams Optical Laboratory Manager Relationship Specialty Start Date End Date Kaykay Duarte CHEMICAL PRODUCTION TECHNICIAN [address] [place] [address] PCP - General 10/15/22 Roderick Morelos MD [address] [place] 085985 Cardiovascular Disease 02/03/22 Magno Wood MD [address] [place] [address] 353045 Otolaryngology 02/21/22 Sophie Ocasio AuD [address] [place] [address] 712235 House Officer Audiology 02/21/22 Henny Rosales APRN FIRER LOW PRESSURE [address] [place] [phone] Assigned Heart and Vascular Provider 08/09/[address] 909 [place] [address] Registered Dietitian Dietitian, Registered 09/02/22 Christiane Rodríguez MD 420 [facility] 396 [place] [address] Otolaryngology 11/12/22 Jing Cadena, MAILMASTER FINANCIAL REPORTING MANAGER 420 [facility] 450 [place], [place] 897375 Clinical Nurse Specialist Anesthesiology 01/15/23 Radha Lopez, [facility] [address] [place] [address] Pharmacist Pharmacist 01/16/23 Luis A Escobedo MD 420 [facility] 195 [place] [address] Assigned Surgical Provider 02/07/23 04/15/23 Geri Loza PA-C 9 [place] [address] Assigned Surgical Provider 04/16/23 Raina Patterson, GINA FIRER LOW PRESSURE [address] [facility] [address] [place], [place] 384575 Nurse Practitioner Cardiovascular Disease 05/11/23 documented as of this encounter
--- OUTSIDE RECORDS SUMMARY | 2024-01-08 09:52 | XMS_ITS | Encounter Summary ---
Author Organization [place] Address [address] [place] [address] Care Team Providers Care Manager Sourcing Name Role Phone Roderick Morelos MD Unavailable [phone] Magno Wood MD Unavailable [phone] Sophie Ocasio AuD Unavailable Henny Rosales CALENDER OPERATOR HELPER CHURCH ORGANIST Unavailable Sharee Oliva [address] Unavailable [phone] Kaykay Duarte LAP CHECKER Primary Care Provider Christiane Rodríguez MD Unavailable Chely FernandezC Unavailable Jing Cadena CALENDER OPERATOR HELPER BUTTON AND BUCKLE MAKER Unavailable Radha Lopez [facility] Unavailable Luis A Escobedo MD Unavailable [phone] Geri LozaC Unavailable [phone] Raina Patterson CALENDER OPERATOR HELPER CHURCH ORGANIST Unavailable [phone] Encounter Details Date Type Department Care Team (Late st Contact Info) Description 01/14/2023 [facility] Weight Management Clinic [address] [place] [address] Radha Dominguez, RN 420 [facility] 195 [place] [address] Social History Tobacco Use Types [...] as of this encounter Care Teams Manager Sourcing Relationship Specialty [place] [address] [place] [address] PCP - General 10/15/22 Roderick Morelos MD [address] [place] [address] Cardiovascular Disease 02/03/22 Magno Wood MD 420 [facility] 396 [place], [place] 245475 Otolaryngology 02/21/22 Sophie Ocasio AuD 909 [facility] [place], [place] 331825 Allopathic Doctor Audiology 02/21/22 Henny Rosales, CALENDER OPERATOR HELPER CHURCH ORGANIST [address] [place] [address] Assigned Heart and Vascular Provider 08/09/[address] [place] [address] 433715 Registered Dietitian Dietitian, Registered 09/02/22 Christiane Rodríguez MD 420 [facility] 396 [place], [place] 409295 Otolaryngology 11/12/22 Chely Fernandez PA-C [address] [place] [address] 043125 Assigned Surgical Provider 11/29/22 02/06/23 Jing Cadena CALENDER OPERATOR HELPER BUTTON AND BUCKLE MAKER [address] [place] [address] 450 [place] [address] Clinical Nurse Specialist Anesthesiology 01/15/23 Radha Lopez, [facility] [address] [place] [address] 177605 Pharmacist Pharmacist 01/16/23 Luis A Escobedo MD 420 [facility] 195 [place], [place] 939305 Assigned Surgical Provider 02/07/23 04/15/23 Geri Loza PA-C [address] [place] [address] 926815 Assigned Surgical Provider 04/16/23 Raina Patterson, CALENDER OPERATOR HELPER CHURCH ORGANIST [address] [facility] [address] [place] 483725 Nurse Practitioner Cardiovascular Disease 05/11/23 documented as of this encounter
--- OUTSIDE RECORDS SUMMARY | 2024-01-08 09:52 | XMS_ITS | Encounter Summary ---
Author Organization [place] Address [address] [place] [address] 6[address]67 Care Team Providers Care Percussion Instrument Tuner Name Role Phone Roderick Morelos MD Unavailable [phone] Magno Wood MD Unavailable [phone] Sophie Ocasio AuD Unavailable [phone] Henny Rosales BOAT DECKHAND CHIEF OF SERVICE Unavailable Sharee Oliva RD Unavailable [phone] Kaykay Duarte NP Primary Care Provider Christiane Rodríguez MD Unavailable Jing Cadena BOAT DECKHAND ORGANIC CHEMIST Unavailable Radha Lopez [facility] Unavailable Luis A Escobedo MD Unavailable Geri LozaC Unavailable [phone] Raina Patterson BOAT DECKHAND CHIEF OF SERVICE Unavailable [phone] Encounter Details Date Type Department Care Team (Late st Contact Info) Description 02/18/2023 [facility] [address] 5th [place] [address] Nikky Babb, RN Social History [...] documented as of this encounter Care Teams Percussion Instrument Tuner Relationship Specialty Start Date End Date Kaykay Duarte BAND CUTTER [address] [place] [address] PCP - General 10/15/22 Roderick Morelos MD [address] [place] [address] Cardiovascular Disease 02/03/22 Magno Wood MD [address] [place] [address] 574135 Otolaryngology 02/21/22 Sophie Ocasio, Nick 909 [place], [place] 881275 Certified Medical Dosimetrist Audiology 02/21/22 Henny Rosales APRN CHIEF OF SERVICE [address] [place] [phone] Assigned Heart and Vascular Provider 08/09/[address] [place] [address] 219015 Registered Dietitian Dietitian, Registered 09/02/22 Christiane Rodríguez MD [address] [place] [address] 396 [place], [place] 584175 Otolaryngology 11/12/22 Jing Cadena APRN ORGANIC CHEMIST [address] [place] [address] 450 [place], [place] 702725 Clinical Nurse Specialist Anesthesiology 01/15/23 Radha Lopez, [facility] [address] [place] [address] 356905 Pharmacist Pharmacist 01/16/23 Luis A Escobedo MD [address] [place] [address] 195 [place], [place] 722735 Assigned Surgical Provider 02/07/23 04/15/23 Geri Loza PA-C [address] [place] [address] 566175 Assigned Surgical Provider 04/16/23 Raina Patterson, GINA CHIEF OF SERVICE [address] [place] 876115 Nurse Practitioner Cardiovascular Disease 05/11/23 documented as of this encounter
--- OUTSIDE RECORDS SUMMARY | 2024-01-08 09:52 | XMS_ITS | Encounter Summary ---
Author Organization [place] Address [address] [place] [address] 97[address] Care Team Providers Care Hog Man Name Role Phone Roderick Morelos MD Unavailable [phone] Magno Wood MD Unavailable [phone] Sophie Ocasio AuD Unavailable Henny Rosales COURTESY VAN DRIVER TOGGLER Unavailable [phone] Unavailable [phone] Kaykay Duarte NATURAL SCIENCE MANAGER Primary Care Provider Christiane Rodríguez MD Unavailable Chely FernandezC Unavailable Jing Cadena COURTESY VAN DRIVER LEAD INGOT MOLDER Unavailable Radha Lopez [facility] Unavailable Luis A Escobedo MD Unavailable [phone] Geri LozaC Unavailable Raina Patterson COURTESY VAN DRIVER TOGGLER Unavailable [phone] Encounter Details Date Type Department Care Team (Late st Contact Info) Description 01/26/2023 [facility] [address]th [place] [phone] Henny Arguello, RN Social History Tobacco Use [...] documented as of this encounter Care Teams Hog Man Relationship Specialty Start Date End Date Kaykay Duarte NATURAL SCIENCE MANAGER [address] [place] [address] [facility] [place] [address] PCP - General 10/15/22 Roderick Morelos MD [address] [place] [address] Cardiovascular Disease 02/03/22 Magno Wood MD [address] [place] [address] 030945 Otolaryngology 02/21/22 Sophie Ocasio, Nick [address] [place] [address] 546015 Chalk Molding Machine Operator Audiology 02/21/22 Henny Rosales, COURTESY VAN DRIVER TOGGLER [address] [place] [address] Assigned Heart and Vascular Provider 08/09/[address] [place] [address] 036725 Registered Dietitian Dietitian, Registered 09/02/22 Christiane Rodríguez MD [address] [place] [address] 396 [place], [place] 831985 Otolaryngology 11/12/22 Chely Fernandez PA-C [address] [place] [address] 506605 Assigned Surgical Provider 11/29/22 02/06/23 Jing Cadena APRN LEAD INGOT MOLDER [address] [place] [address] 450 [place], [place] 125995 Clinical Nurse Specialist Anesthesiology 01/15/23 Radha Lopez, [facility] [address] [place] [address] 447845 Pharmacist Pharmacist 01/16/23 Luis A Escobedo MD [address] [place] [address] 195 [place], [place] 108705 Assigned Surgical Provider 02/07/23 04/15/23 Geri Loza PA-C [address] [place] [address] 498255 Assigned Surgical Provider 04/16/23 Raina Patterson APRN TOGGLER [address] [facility] [address] [place], [place] 125085 Nurse Practitioner Cardiovascular Disease 05/11/23 documented as of this encounter
--- OUTSIDE RECORDS SUMMARY | 2024-01-08 09:52 | XMS_ITS | Encounter Summary ---
Author Organization [place] Address [address] [place] [address] 06276 Care Team Providers Care Director Of Video Analytics Name Role Phone Roderick Morelos MD Unavailable [phone] Magno Wood MD Unavailable [phone] Sophie Ocasio AuD Unavailable Henny Rosales REAR LOAD TRUCK DRIVER CALIBRATION TECHNICIAN Unavailable Sharee Oliva RD Unavailable [phone] Kaykay Duarte DIRECTOR OF ONLINE MERCHANDISING Primary Care Provider Christiane Rodríguez MD Unavailable Chely FernandezC Unavailable [phone] Jing Cadena REAR LOAD TRUCK DRIVER DETECTIVE SERGEANT Unavailable Radha Lopez [facility] Unavailable [phone] Luis A Escobedo MD Unavailable [phone] Geri LozaC Unavailable [phone] Raina Patterson REAR LOAD TRUCK DRIVER CALIBRATION TECHNICIAN Unavailable Encounter Details Date Type Department Care [...] of this encounter Care Teams Director Of Video Analytics Relationship Specialty Start Date End Date Kaykay Duarte DIRECTOR OF ONLINE MERCHANDISING [address] [place] [address] PCP - General 10/15/22 Roderick Morelos MD [address] [place] [address] Cardiovascular Disease 02/03/22 Magno Wood MD 420 [facility] 396 [place], [place] 161155 Otolaryngology 02/21/22 Sophie Ocasio AuD 909 [place], [place] 027245 Docketing Specialist Audiology 02/21/22 Henny Rosales APRN CALIBRATION TECHNICIAN [address] [place] [phone] Assigned Heart and Vascular Provider 08/09/[address] 909 [place], [place] 306145 Registered Dietitian Dietitian, Registered 09/02/22 Christiane Rodríguez MD 420 [facility] 396 [place], [place] 510425 Otolaryngology 11/12/22 Chely Fernandez PA-C [address] [place] [address] 716785 Assigned Surgical Provider 11/29/22 02/06/23 Jing Cadena APRN DETECTIVE SERGEANT 420 [facility] 450 [place], [place] 327195 Clinical Nurse Specialist Anesthesiology 01/15/23 Radha Lopez, [facility] [address] [place] [address] 766375 Pharmacist Pharmacist 01/16/23 Luis A Escobedo MD 420 [facility] 195 [place], [place] 385025 Assigned Surgical Provider 02/07/23 04/15/23 Geri Loza PA-C [address] [place] [address] 937335 Assigned Surgical Provider 04/16/23 Raina Patterson APRN CALIBRATION TECHNICIAN [address] [place] [address] [place] 432535 Nurse Practitioner Cardiovascular Disease 05/11/23 documented as of this encounter
--- OUTSIDE RECORDS SUMMARY | 2024-01-08 09:52 | XMS_ITS | Encounter Summary ---
Author Organization [place] Address [address] [place] [address] 71264 Care Team Providers Care Motorboat Mechanic Name Role Phone Roderick Morelos MD Unavailable [phone] Magno Wood MD Unavailable [phone] Sohpie Ocasio AuD Unavailable Henny Rosales ELECTRONIC GAMING DEVICE SUPERVISOR FRICTION WELDING MACHINE OPERATOR Unavailable Sharee Oliva RD Unavailable [phone] Kaykay Duarte DATA CAPTURE CLERK Primary Care Provider Christiane Rodrígeuz MD Unavailable Chely FernandezC Unavailable Jing Cadena ELECTRONIC GAMING DEVICE SUPERVISOR EDITING COMPUTER PUBLISHER Unavailable [phone] Radha Lopez [facility] Unavailable Luis A Escobedo MD Unavailable [phone] Geri LozaC Unavailable [phone] Raina Patterson ELECTRONIC GAMING DEVICE SUPERVISOR FRICTION WELDING MACHINE OPERATOR Unavailable [phone] Encounter Details Date Type Department Care Team (Late st Contact Info) Description 01/09/2023 [facility] [address] [place] [address] aRdha Dominguez, RN 420 [facility] 195 [place] [address] Social History Tobacco Use Types [...] documented as of this encounter Care Teams Motorboat Mechanic Relationship Specialty [place] [address] [place] [address] PCP - General 10/15/22 Roderick Morelos MD [address] [place] [address] Cardiovascular Disease 02/03/22 Magno Wood MD 420 [facility] 396 [place], [place] 445495 Otolaryngology 02/21/22 Sophie Ocasio AuD 909 [facility] [place], [place] 230655 Salon Coordinator Audiology 02/21/22 Henny Rosales, ELECTRONIC GAMING DEVICE SUPERVISOR FRICTION WELDING MACHINE OPERATOR [address] [place] [address] Assigned Heart and Vascular Provider 08/09/[address] [place] [address] 355425 Registered Dietitian Dietitian, Registered 09/02/22 Christiane Rodríguez MD 420 [facility] 396 [place], [place] 811615 Otolaryngology 11/12/22 Chely Fernandez PA-C [address] [place] [address] 933545 Assigned Surgical Provider 11/29/22 02/06/23 Jing Cadena ELECTRONIC GAMING DEVICE SUPERVISOR EDITING COMPUTER PUBLISHER [address] [place] [address] 450 [place] [address] Clinical Nurse Specialist Anesthesiology 01/15/23 Radha Lopez, [facility] [address] [place] [address] 768735 Pharmacist Pharmacist 01/16/23 Luis A Escobedo MD 420 [facility] 195 [place], [place] 732345 Assigned Surgical Provider 02/07/23 04/15/23 Geri Loza PA-C [address] [place] [address] 997165 Assigned Surgical Provider 04/16/23 Raina Patterson, ELECTRONIC GAMING DEVICE SUPERVISOR FRICTION WELDING MACHINE OPERATOR [address] [facility] [address] [place] 776295 Nurse Practitioner Cardiovascular Disease 05/11/23 documented as of this encounter
--- OUTSIDE RECORDS SUMMARY | 2024-01-08 09:52 | XMS_ITS | Encounter Summary ---
Author Organization [place] Address [address] [place] [address] 51411 Care Team Providers Care Systems Test Technician Name Role Phone Roderick Morelos MD Unavailable [phone] Magno Wood MD Unavailable [phone] Sophie Ocasio AuD Unavailable Henny Rosales LITHOGRAPHIC PHOTOGRAPHER SCABBLER Unavailable Sharee Oliva [address] Unavailable [phone] Kaykay Duarte EXHIBIT ARTIST Primary Care Provider [phone] Christiane Rodríguez MD Unavailable Chely FernandezC Unavailable [phone] Jing Cadena LITHOGRAPHIC PHOTOGRAPHER STOKER INSTALLER Unavailable Radha Lopez [facility] Unavailable [phone] Luis A Escobedo MD Unavailable [phone] Geri LozaC Unavailable [phone] Raina Patterson LITHOGRAPHIC PHOTOGRAPHER SCABBLER Unavailable [phone] Encounter Details Date Type Department Care Team (Late st Contact Info) Description 01/09/2023 [facility] [address] [place] [address] Radha Dominguez, RN 420 [facility] 195 [place] [address] Social History Tobacco Use Types [...] documented as of this encounter Care Teams Systems Test Technician Relationship Specialty [place] [address] [place] [address] PCP - General 10/15/22 Roderick Morelos MD [address] [place] [address] Cardiovascular Disease 02/03/22 Magno Wood MD 420 [facility] 396 [place], [place] 632145 Otolaryngology 02/21/22 Sophie Ocasio AuD 909 [facility] [place], [place] 454925 Public Health Advisor Audiology 02/21/22 Henny Rosales, LITHOGRAPHIC PHOTOGRAPHER SCABBLER [address] [place] [address] Assigned Heart and Vascular Provider 08/09/[address] [place] [address] 211695 Registered Dietitian Dietitian, Registered 09/02/22 Christiane Rodríguez MD 420 [facility] 396 [place], [place] 010645 Otolaryngology 11/12/22 Chely Fernandez PA-C [address] [place] [address] 906575 Assigned Surgical Provider 11/29/22 02/06/23 Jing Cadena LITHOGRAPHIC PHOTOGRAPHER STOKER INSTALLER [address] [place] [address] 450 [place] [address] Clinical Nurse Specialist Anesthesiology 01/15/23 Radha Lopez, [facility] [address] [place] [address] 042185 Pharmacist Pharmacist 01/16/23 Luis A Escobedo MD 420 [facility] 195 [place], [place] 454595 Assigned Surgical Provider 02/07/23 04/15/23 Geri Loza PA-C [address] [place] [address] 786395 Assigned Surgical Provider 04/16/23 Raina Patterson, LITHOGRAPHIC PHOTOGRAPHER SCABBLER [address] [facility] [address] [place] 994025 Nurse Practitioner Cardiovascular Disease 05/11/23 documented as of this encounter
--- OUTSIDE RECORDS SUMMARY | 2024-01-08 09:52 | XMS_ITS | Encounter Summary ---
Author Organization [place] Address [address] [place] [address] 85679 Care Team Providers Care Chocolatier Name Role Phone Roderick Morelos MD Unavailable [phone] Magno Wood MD Unavailable [phone] Sophie Ocasio Unavailable [phone] Henny Rosales MINE CAR REPAIRER ICING MAKER Unavailable Sharee Oliva [address] Unavailable [phone] Kaykay Duarte SECURITY TECHNICIAN Primary Care Provider [phone] Christiane Rodríguez MD Unavailable Luis A Escobedo MD Unavailable [phone] Chely Fernandez-C Unavailable [phone] Jing Cadena APRN MAINTENANCE LEADER Unavailable Radha Lopez [facility] Unavailable [phone] Luis A Escobedo MD Unavailable [phone] Geri LozaC Unavailable [phone] Raina Patterson APRN ICING MAKER Unavailable [phone] Encounter Details Date Type Department Care Team (Late st Contact Info) Description 11/21/2022 [facility] [place] 909 [facility] 4th [place] [address] Geri Loza PA-C [address] [place] [address] 906905 Social History Tobacco Use Types Packs/Day Years [...] documented as of this encounter Care Teams Chocolatier Relationship Specialty Start Date End Date Kaykay Duarte SECURITY TECHNICIAN [address] [place] [address] PCP - General 10/15/22 Roderick Morelos MD [address] [place] 781965 Cardiovascular Disease 02/03/22 Magno Wood MD [address] [facility] 396 [place], [place] 889505 Otolaryngology 02/21/22 Sophie Ocasio AuD 909 [place], [place] 567435 Aerospace Stress Engineer Audiology 02/21/22 Henny Rosales, MINE CAR REPAIRER ICING MAKER [address] [place] [address] Assigned Heart and Vascular Provider 08/09/[address] [place] [address] 778725 Registered Dietitian Dietitian, Registered 09/02/22 Christiane Rodríguez MD [address] [place] [address] 396 [place] [address] Otolaryngology 11/12/22 Luis A Escobedo MD 420 [facility] 195 [place] [address] Assigned Surgical Provider 11/01/22 11/28/22 Chely Fernandez PA-C [address] [place] [address] 023035 Assigned Surgical Provider 11/29/22 02/06/23 Jing Cadena, MINE CAR REPAIRER MAINTENANCE LEADER 420 [facility] 450 [place] [address] Clinical Nurse Specialist Anesthesiology 01/15/23 Radha Lopez [facility] [address] [place] [address] 877425 Pharmacist Pharmacist 01/16/23 Luis A Escobedo MD [address] [facility] 195 [place] [address] Assigned Surgical Provider 02/07/23 04/15/23 Geri Loza PA-C 909 [place] [address] Assigned Surgical Provider 04/16/23 Raina Patterson APRN [facility] [address] [place], [place] 990095 Nurse Practitioner Cardiovascular Disease 05/11/23 documented as of this encounter
--- OUTSIDE RECORDS SUMMARY | 2024-01-08 09:52 | XMS_ITS | Encounter Summary ---
Author Organization [place] Address [address] [place] [address] Care Team Providers Care Youth Director Name Role Phone Roderick Morelos MD Unavailable Magno Wood MD Unavailable [phone] Sophie Ocasio AuD Unavailable Henny Rosales COUNTERSINKER BALANCE SCREW HOLE COMMUNITY SUPPORT ASSOCIATE Unavailable Sharee [address]iva RD Unavailable [phone] Kaykay Duarte TIME CLOCK MECHANIC Primary Care Provider Christiane Rodríguez MD Unavailable Chely FernandezC Unavailable Jing Cadena COUNTERSINKER BALANCE SCREW HOLE SEWING MACHINE OPERATOR ZIPPER Unavailable Radha Lopez [facility] Unavailable [phone] Luis A Escobedo MD Unavailable [phone] Geri LozaC Unavailable [phone] Raina Patterson COUNTERSINKER BALANCE SCREW HOLE COMMUNITY SUPPORT ASSOCIATE Unavailable [phone] Encounter Details Date Type Department Care Team (Late st Contact Info) Description 01/14/2023 [facility] [address] [place] [address] Radha Dominguez, RN 420 [facility] 195 [place] [address] Social History Tobacco Use Types [...] documented as of this encounter Care Teams Youth Director Relationship Specialty [place] [address] [place] [address] PCP - General 10/15/22 Roderick Morelos MD [address] [place] [address] Cardiovascular Disease 02/03/22 Magno Wood MD 420 [facility] 396 [place], [place] 842085 Otolaryngology 02/21/22 Sophie Ocasio AuD 909 [facility] [place], [place] 637915 Lacing Operator Audiology 02/21/22 Henny Rosales, COUNTERSINKER BALANCE SCREW HOLE COMMUNITY SUPPORT ASSOCIATE [address] [place] [address] Assigned Heart and Vascular Provider 08/09/[address] [place] [address] 432935 Registered Dietitian Dietitian, Registered 09/02/22 Christiane Rodríguez MD 420 [facility] 396 [place], [place] 221405 Otolaryngology 11/12/22 Chely Fernandez PA-C [address] [place] [address] 051415 Assigned Surgical Provider 11/29/22 02/06/23 Jing Cadena COUNTERSINKER BALANCE SCREW HOLE SEWING MACHINE OPERATOR ZIPPER [address] [place] [address] 450 [place] [address] Clinical Nurse Specialist Anesthesiology 01/15/23 Radha Lopez, [facility] [address] [place] [address] 135235 Pharmacist Pharmacist 01/16/23 Luis A Escobedo MD 420 [facility] 195 [place], [place] 593885 Assigned Surgical Provider 02/07/23 04/15/23 Geri Loza PA-C [address] [place] [address] 310345 Assigned Surgical Provider 04/16/23 Raina Patterson, COUNTERSINKER BALANCE SCREW HOLE COMMUNITY SUPPORT ASSOCIATE [address] [facility] [address] [place] 081665 Nurse Practitioner Cardiovascular Disease 05/11/23 documented as of this encounter
--- OUTSIDE RECORDS SUMMARY | 2024-01-08 09:52 | XMS_ITS | Encounter Summary ---
Author Organization [place] Address [address] [place] [address] 62663 Care Team Providers Care Assembler Convertible Top Name Role Phone Roderick Morelos MD Unavailable [phone] Magno Wood MD Unavailable [phone] Sophie Ocasio AuD Unavailable Henny Rosales RETIREMENT ADMINISTRATOR MOUTHPIECE MAKER Unavailable Sharee Oliva RD Unavailable [phone] Kaykay Duarte TAILOR GARMENT FITTER Primary Care Provider Christiane Rodríguez MD Unavailable Chely FernandezC Unavailable Jing Cadena RETIREMENT ADMINISTRATOR CARTOGRAPHY TECHNICIAN Unavailable Radha Lopez [facility] Unavailable [phone] Luis A Escobedo MD Unavailable [phone] Geri LozaC Unavailable Raina Patterson RETIREMENT ADMINISTRATOR MOUTHPIECE MAKER Unavailable [phone] Encounter Details Date Type Department Care Team (Late st Contact Info) Description 01/21/2023 [facility] [address] [place] [address] Radha Dominguez, RN 420 [facility] 195 [place] [address] Social History Tobacco Use Types [...] documented as of this encounter Care Teams Assembler Convertible Top Relationship Specialty [place] [address] [place] [address] PCP - General 10/15/22 Roderick Morelos MD [address] [place] [address] Cardiovascular Disease 02/03/22 Magno Wood MD 420 [facility] 396 [place], [place] 574005 Otolaryngology 02/21/22 Sophie Ocasio AuD 909 [facility] [place], [place] 451145 Spice Fumigator Audiology 02/21/22 Henny Rosales, RETIREMENT ADMINISTRATOR MOUTHPIECE MAKER [address] [place] [address] Assigned Heart and Vascular Provider 08/09/[address] [place] [address] [phone] Registered Dietitian Dietitian, Registered 09/02/22 Christiane Rodríguez MD 420 [facility] 396 [place], [place] 126925 Otolaryngology 11/12/22 Chely Fernandez PA-C [address] [place] [address] 618975 Assigned Surgical Provider 11/29/22 02/06/23 Jing Cadena RETIREMENT ADMINISTRATOR CARTOGRAPHY TECHNICIAN [address] [place] [address] 450 [place] [address] Clinical Nurse Specialist Anesthesiology 01/15/23 Radha Lopez, [facility] [address] [place] [address] 900655 Pharmacist Pharmacist 01/16/23 Luis A Escobedo MD 420 [facility] 195 [place], [place] 874175 Assigned Surgical Provider 02/07/23 04/15/23 Geri Loza PA-C [address] [place] [address] 321785 Assigned Surgical Provider 04/16/23 Raina Patterson, RETIREMENT ADMINISTRATOR MOUTHPIECE MAKER [address] [facility] [address] [place] [address]0115 Nurse Practitioner Cardiovascular Disease 05/11/23 documented as of this encounter
--- OUTSIDE RECORDS SUMMARY | 2024-01-08 09:52 | XMS_ITS | Encounter Summary ---
Author Organization [place] Address [address] [place] [address] 52960 Care Team Providers Care Systems Testing Laboratory Technician Name Role Phone Roderick Morelos MD Unavailable [phone] Magno Wood MD Unavailable [phone] Sophie Ocasio AuD Unavailable [phone] Henny Rosales COSMETIC SALES ASSISTANT PATENT COUNSEL Unavailable Sharee Oliva RD Unavailable [phone] Kaykay Duarte NP Primary Care Provider Christiane Rodríguez MD Unavailable [phone] Jing Cadena COSMETIC SALES ASSISTANT KNITTED CLOTH EXAMINER Unavailable Radha Lopez [facility] Unavailable [phone] Luis A Escobedo MD Unavailable Geri LozaC Unavailable [phone] Raina Patterson COSMETIC SALES ASSISTANT PATENT COUNSEL Unavailable [phone] Encounter Details Date Type Department Care Team (Late st Contact Info) Description 02/17/2023 [facility] [place] [facility] [address] 4th [place] [address] [place], Henny, RN Social History [...] as of this encounter Care Teams Systems Testing Laboratory Technician Relationship Specialty [place] [address] [place] [address] PCP - General 10/15/22 Roderick Morelos MD [address] [place] 056855 Cardiovascular Disease 02/03/22 Magno Wood MD [address] [place] [address] 844415 Otolaryngology 02/21/22 Sophie Ocasio AuD 909 [place], [place] 881025 Stock Selector Audiology 02/21/22 Henny Rosales APRN PATENT COUNSEL [address] [place] [phone] Assigned Heart and Vascular Provider 08/09/[address]09 [place], [place] 479215 Registered Dietitian Dietitian, Registered 09/02/22 Christiane Rodríguez MD 420 [facility] 396 [place], [place] 308825 Otolaryngology 11/12/22 Jing Cadena APRN KNITTED CLOTH EXAMINER 420 [facility] 450 [place] [address] Clinical Nurse Specialist Anesthesiology 01/15/23 Radha Lopez, [facility] [address] [place] [address] 100165 Pharmacist Pharmacist 01/16/23 Luis A Escobedo MD 420 [facility] 195 [place], [place] 694735 Assigned Surgical Provider 02/07/23 04/15/23 Geri Loza PA-C 9 [place], [place] 911075 Assigned Surgical Provider 04/16/23 Raina Patterson, GINA PATENT COUNSEL [address] [place] 948385 Nurse Practitioner Cardiovascular Disease 05/11/23 documented as of this encounter
--- OUTSIDE RECORDS SUMMARY | 2024-01-08 09:52 | XMS_ITS | Encounter Summary ---
Author Organization [place] Address [address] [place] [address] 13572 Care Team Providers Care Pediatric Nephrologist Name Role Phone Roderick Morelos MD Unavailable [phone] Magno Wood MD Unavailable [phone] Sophie Ocasio AuD Unavailable [phone] Henny Rosales ASTROCHEMIST ORTHOPEDICS NURSE Unavailable Sharee Oliva RD Unavailable [phone] Kaykay Duarte NP Primary Care Provider Christiane Rodríguez MD Unavailable Jing Cadena ASTROCHEMIST LEARNING OPERATIONS SPECIALIST Unavailable [phone] Radha Lopez [facility] Unavailable Luis A Escobedo MD Unavailable Geri LozaC Unavailable [phone] Raina Patterson ASTROCHEMIST ORTHOPEDICS NURSE Unavailable [phone] Encounter Details Date Type Department Care Team (Late st Contact Info) Description 03/11/2023 MyC Medical Advice Initial Department [facility] [place] Social History Tobacco Use Types Packs/Day Years [...] documented as of this encounter Care Teams Pediatric Nephrologist Relationship Specialty Start Date End Date Kaykay Duarte TRANSACTIONAL ATTORNEY [address] [place] [address] PCP - General 10/15/22 Roderick Morelos MD [address] [place] [id number] Cardiovascular Disease 02/03/22 Magno Wood MD [address] [place] [address] 389575 Otolaryngology 02/21/22 Sophie Ocasio AuD [address] [place] [address] 571385 Blue Print Control Clerk Audiology 02/21/22 Henny Rosales APRN ORTHOPEDICS NURSE [address] [place] [phone] Assigned Heart and Vascular Provider 08/09/[address] 909 [place] [address] Registered Dietitian Dietitian, Registered 09/02/22 Christiane Rodríguez MD 420 [facility] 396 [place] [address] Otolaryngology 11/12/22 Jing Cadena, ASTROCHEMIST LEARNING OPERATIONS SPECIALIST 420 [facility] 450 [place], [place] 651345 Clinical Nurse Specialist Anesthesiology 01/15/23 Radha Lopez, [facility] [address] [place] [address] 32728 Pharmacist Pharmacist 01/16/23 Luis A Escobedo MD 420 [facility] 195 [place] [address] Assigned Surgical Provider 02/07/23 04/15/23 Geri Loza PA-C 9 [place] [address] Assigned Surgical Provider 04/16/23 Raina Patterson, GINA ORTHOPEDICS NURSE [address] [facility] [address] [place], [place] 361565 Nurse Practitioner Cardiovascular Disease 05/11/23 documented as of this encounter
--- OUTSIDE RECORDS SUMMARY | 2024-01-08 09:52 | XMS_ITS | Encounter Summary ---
Author Organization [place] Address [address] [place] [address] 54976 Care Team Providers Care Hat Body Inspector Name Role Phone Roderick Morelos MD Unavailable [phone] Magno Wood MD Unavailable [phone] Sophie Ocasio AuD Unavailable [phone] Henny Rosales MANUAL ARTS TEACHER BASEBALL SCOUT Unavailable Sharee Oliva RD Unavailable [phone] Kaykay Duarte COAGULATING BATH MIXER Primary Care Provider Christiane Rodríguez MD Unavailable Chely FernandezC Unavailable Jing Cadena MANUAL ARTS TEACHER CHASSIS MECHANIC Unavailable Radha Lopez [facility] Unavailable [phone] Lusi A Escobedo MD Unavailable [phone] Geri LozaC Unavailable [phone] Raina Patterson MANUAL ARTS TEACHER BASEBALL SCOUT Unavailable Encounter Details Date Type Department Care [...] documented as of this encounter Care Teams Hat Body Inspector Relationship Specialty Start Date End Date Kaykay Duarte COAGULATING BATH MIXER [address] [place] [address] PCP - General 10/15/22 Roderick Morelos MD [address] [place] [address] Cardiovascular Disease 02/03/22 Magno Wood MD 420 [facility] 396 [place], [place] 148395 Otolaryngology 02/21/22 Sophie Ocasio AuD 909 [place], [place] 232985 Sample Tailor Audiology 02/21/22 Henny Rosales APRN BASEBALL SCOUT [address] [place] [id number] Assigned Heart and Vascular Provider 08/09/[address] 909 [place], [place] 488485 Registered Dietitian Dietitian, Registered 09/02/22 Christiane Rodríguez MD 420 [facility] 396 [place], [place] 427425 Otolaryngology 11/12/22 Chely Fernandez PA-C [address] [place] [address] 970535 Assigned Surgical Provider 11/29/22 02/06/23 Jing Cadena APRN CHASSIS MECHANIC 420 [facility] 450 [place], [place] 114355 Clinical Nurse Specialist Anesthesiology 01/15/23 Radha Lopez, [facility] [address] [place] [address] 691635 Pharmacist Pharmacist 01/16/23 Luis A Escobedo MD 420 [facility] 195 [place], [place] 150635 Assigned Surgical Provider 02/07/23 04/15/23 Geri Loza PA-C [address] [place] [address] 824065 Assigned Surgical Provider 04/16/23 Raina Patterson APRN BASEBALL SCOUT [address] [place] 457555 Nurse Practitioner Cardiovascular Disease 05/11/23 documented as of this encounter
--- OUTSIDE RECORDS SUMMARY | 2024-01-08 09:52 | XMS_ITS | Encounter Summary ---
Author Organization [place] Address [address] [place] [address] Care Team Providers Care Frame Repairer Name Role Phone Roderick Morelos MD Unavailable [phone] Mgano Wood MD Unavailable [phone] Sophie Ocasio AuD Unavailable Henny Rosales CHURCH ADMINISTRATOR JUNIOR HIGH SCHOOL PRINCIPAL Unavailable Sharee Oliva RD Unavailable [phone] Kaykay Duarte PRIVATE SECTOR EXECUTIVE Primary Care Provider Christiane Rodríguez MD Unavailable [phone] Chely FernandezC Unavailable [phone] Jing Cadena CHURCH ADMINISTRATOR JUNIOR MECHANICAL ENGINEER Unavailable Radha Lopez [facility] Unavailable [phone] Luis A Escobedo MD Unavailable [phone] Geri LozaC Unavailable Raina Patterson CHURCH ADMINISTRATOR JUNIOR HIGH SCHOOL PRINCIPAL Unavailable [phone] Encounter Details Date Type Department Care Team (Late st Contact Info) Description 01/21/2023 [facility] [address] 4th [place] [address] Radha Dominguez, RN 420 [facility] 195 [place] [address] Social History Tobacco Use Types [...] as of this encounter Care Teams Frame Repairer Relationship Specialty [place] [address] [place] [address] PCP - General 10/15/22 Roderick Morelos MD [address] [place] [address] Cardiovascular Disease 02/03/22 Magno Wood MD 420 [facility] 396 [place], [place] 263445 Otolaryngology 02/21/22 Sophie Ocasio AuD 909 [facility] [place], [place] 050915 Rustic Terrazzo Setter Audiology 02/21/22 Henny Rosales, CHURCH ADMINISTRATOR J[employer]IOR [employer] PRINCIPAL [address] [place] [phone] Assigned Heart and Vascular Provider 08/09/[address] [place] [address] 808265 Registered Dietitian Dietitian, Registered 09/02/22 Christiane Rodríguez MD 420 [facility] 396 [place], [place] 797795 Otolaryngology 11/12/22 Chely Fernandez PA-C [address] [place] [address] 709855 Assigned Surgical Provider 11/29/22 02/06/23 Jing Cadena CHURCH ADMINISTRATOR JUNIOR MECHANICAL ENGINEER [address] [place] [address] 450 [place] [address] Clinical Nurse Specialist Anesthesiology 01/15/23 Radha Lopez, [facility] [address] [place] [address] 630805 Pharmacist Pharmacist 01/16/23 Luis A Escobedo MD 420 [facility] 195 [place], [place] 961335 Assigned Surgical Provider 02/07/23 04/15/23 Geri Loza PA-C [address] [place] [address] 925195 Assigned Surgical Provider 04/16/23 Raina Patterson, CHURCH ADMINISTRATOR JUNIOR HIGH SCHOOL PRINCIPAL [address] [facility] [address] [place] 301975 Nurse Practitioner Cardiovascular Disease 05/11/23 documented as of this encounter
--- OUTSIDE RECORDS SUMMARY | 2024-01-08 09:52 | XMS_ITS | Encounter Summary ---
Author Organization [place] Address [address] [place] [address] 6[address]99 Care Team Providers Care Clinical Outcomes Manager Name Role Phone Roderick Morelos MD Unavailable [phone] Magno Wood MD Unavailable [phone] Sophie Ocasio AuD Unavailable [phone] Henny Rosales AUTO DAMAGE TRAINEE RELINER Unavailable Sharee Oliva [address] Unavailable [phone] Kaykay Duarte NP Primary Care Provider Christiane Rodríguez MD Unavailable [phone] Jing Cadena AUTO DAMAGE TRAINEE CORRECTIONAL SUPERVISOR Unavailable [phone] Radha Lopez [facility] Unavailable Luis A Escobedo MD Unavailable Geri LozaC Unavailable [phone] Raina Patterson AUTO DAMAGE TRAINEE RELINER Unavailable [phone] Encounter Details Date Type Department Care Team (Late st Contact Info) Description 02/17/2023 [facility] Medical Advice [facility] [address] 4th [place] [address] [place], Henny, RN Social History [...] as of this encounter Care Teams Clinical Outcomes Manager Relationship Specialty [place] [address] [place] [address] PCP - General 10/15/22 Roderick Morelos MD [address] [place] 771145 Cardiovascular Disease 02/03/22 Magno Wood MD [address] [place] [address] 670625 Otolaryngology 02/21/22 Sophie Ocasio AuD 909 [place], [place] 770625 Veterinary Surgeon Audiology 02/21/22 Henny Rosales APRN RELINER [address] [place] [phone] Assigned Heart and Vascular Provider 08/09/[address] 909 [place], [place] 690635 Registered Dietitian Dietitian, Registered 09/02/22 Christiane Rodríguez MD 420 [facility] 396 [place], [place] 121135 Otolaryngology 11/12/22 Jing Cadena APRN CORRECTIONAL SUPERVISOR 420 [facility] 450 [place] [address] Clinical Nurse Specialist Anesthesiology 01/15/23 Radha Lopez, [facility] [address] [place] [address] 974935 Pharmacist Pharmacist 01/16/23 Luis A Escobedo MD 420 [facility] 195 [place], [place] 294945 Assigned Surgical Provider 02/07/23 04/15/23 Geri Loza PA-C 9 [place], [place] 374045 Assigned Surgical Provider 04/16/23 Raina Patterson, GINA RELINER [address] [place] 230355 Nurse Practitioner Cardiovascular Disease 05/11/23 documented as of this encounter
--- OUTSIDE RECORDS SUMMARY | 2024-01-08 09:52 | XMS_ITS | Encounter Summary ---
Author Organization [place] Address [address] [place] [address] 8[address]11 Care Team Providers Care Sales Record Clerk Name Role Phone Roderick Morelos MD Unavailable [phone] Magno Wood MD Unavailable [phone] Sophie Ocasio AuD Unavailable Henny Rosales CUT OFF MAN TYRE FITTER Unavailable Sharee Oliva RD Unavailable [phone] Kaykay Duarte CYLINDER MACHINE OPERATOR Primary Care Provider Christiane Rodríguez MD Unavailable [phone] Chely FernandezC Unavailable Jing Cadena CUT OFF MAN AUTO TECHNICIAN Unavailable Radha Lopez [facility] Unavailable Luis A Escobedo MD Unavailable [phone] Geri LozaC Unavailable Raina Patterson CUT OFF MAN TYRE FITTER Unavailable Encounter Details Date Type Department Care Team (Late st Contact Info) Description 01/26/2023 Telephone [facility] [address] 4th [place] [address] Geri Loza PA-C 909 [place], [place] 395025 Social History Tobacco Use Types Packs/Day Years [...] 01/26/2023 at 9:59 AM by Tamera Bhardwaj ON LETTERING MACHINE OPERATOR documented in this encounter Plan [...] documented as of this encounter Care Teams Sales Record Clerk Relationship Specialty Start Date End Date Kaykay Duarte, CYLINDER MACHINE OPERATOR [address] [place] [address] PCP - General 10/15/22 Roderick Morelos MD [address] [place] [address] Cardiovascular Disease 02/03/22 Magno Wood MD [address] [place] [address] 8[address]79 Otolaryngology 02/21/22 Sophie Ocasio AuD [address] [place] [address] 739705 System Specialist Audiology 02/21/22 Henny Rosales APRN TYRE FITTER 6[address] [facility] [address] [place] [address] Assigned Heart and Vascular Provider 08/09/[address] [place] [address] 821635 Registered Dietitian Dietitian, Registered 09/02/22 Christiane Rodríguez MD [address] [place] [address]27 Otolaryngology 11/12/22 Chely Fernandez PA-C [address] [place] [address] 202375 Assigned Surgical Provider 11/29/22 02/06/23 Jing Cadena APRN AUTO TECHNICIAN [address] [place] [address] 458565 Clinical Nurse Specialist Anesthesiology 01/15/23 Radha Lopez, [facility] [address] [place] [address] 14644 Pharmacist Pharmacist 01/16/23 Luis A Escobedo MD [address] [place] [address] 195 [place] [address] Assigned Surgical Provider 02/07/23 04/15/23 Geri Loza PA-C [address] [place] [address] 08707 Assigned Surgical Provider 04/16/23 Raina Patterson APRN [facility] [address] [place] [address] Nurse Practitioner Cardiovascular Disease 05/11/23 documented as of this encounter
--- OUTSIDE RECORDS SUMMARY | 2024-01-08 09:52 | XMS_ITS | Encounter Summary ---
Author Organization [place] Address [address] [place] [address] 70088 Care Team Providers Care Senior Storage Engineer Name Role Phone Roderick Morelos MD Unavailable Magno Wood MD Unavailable [phone] Sophie Ocasio AuD Unavailable [phone] Henny Rosales COAT PRESSER LIFE ENRICHMENT ASSISTANT Unavailable Sharee Oliva [address] Unavailable [phone] Kaykay Duarte FURNACE BRAZER Primary Care Provider Christiane Rodríguez MD Unavailable [phone] Chely FernandezC Unavailable [phone] Jing Cadena COAT PRESSER GERMAN INSTRUCTOR Unavailable Radha Lopez [facility] Unavailable [phone] Luis A Escobedo MD Unavailable [phone] Geri LozaC Unavailable [phone] Raina Patterson COAT PRESSER LIFE ENRICHMENT ASSISTANT Unavailable [phone] Encounter Details Date Type Department Care Team (Late st Contact Info) Description 02/06/2023 [facility] [address] 4th [place] [phone] [place] Social History Tobacco Use Types [...] as of this encounter Care Teams Senior Storage Engineer Relationship Specialty [place] [address] [place] [address] PCP - General 10/15/22 Roderick Morelos MD [address] [place] [address] Cardiovascular Disease 02/03/22 Magno Wood MD [address] [place] [address] 851495 Otolaryngology 02/21/22 Sophie Ocasio AuD [address] [place] [address] 714515 Bale Breaker Operator Audiology 02/21/22 Henny Rosales APRN LIFE ENRICHMENT ASSISTANT [address] [place] [address]03312108 Assigned Heart and Vascular Provider 08/09/[address] [place] [address] 842095 Registered Dietitian Dietitian, Registered 09/02/22 Christiane Rodríguez MD [address] [place] [address] 396 [place], [place] 565045 Otolaryngology 11/12/22 Chely Fernandez PA-C [address] [place] [address] 076205 Assigned Surgical Provider 11/29/22 02/06/23 Jing Cadena APRN GERMAN INSTRUCTOR [address] [place] [address] 450 [place], [place] 700605 Clinical Nurse Specialist Anesthesiology 01/15/23 Radha Lopez, [facility] [address] [place] [address] 508085 Pharmacist Pharmacist 01/16/23 Luis A Escobedo MD [address] [place] [address] 195 [place], [place] 485285 Assigned Surgical Provider 02/07/23 04/15/23 Geri Loza PA-C [address] [place] [address] 880945 Assigned Surgical Provider 04/16/23 Raina Patterson APRN LIFE ENRICHMENT ASSISTANT [address] [facility] [address] [place], [place] 927045 Nurse Practitioner Cardiovascular Disease 05/11/23 documented as of this encounter
--- OUTSIDE RECORDS SUMMARY | 2024-01-08 09:52 | XMS_ITS | Encounter Summary ---
Author Organization [place] Address [address] [place] [address] 60089 Care Team Providers Care Joint Cutter Name Role Phone Roderick Morelos MD Unavailable [phone] Magno Wood MD Unavailable [phone] Sophie Ocasio Unavailable [phone] Henny Rosales IT TECHNICAL SUPPORT SPECIALIST LABORER YARD Unavailable Sharee Oliva [address] Unavailable [phone] Kaykay Duarte DRAMATIC ARTS HISTORIAN Primary Care Provider [phone] Christiane Rodríguez MD Unavailable [phone] Luis A Escobedo MD Unavailable [phone] Chely Fernandez-C Unavailable [phone] Jing Cadena APRN INSURANCE CLAIMS ASSISTANT Unavailable Radha Lopez [facility] Unavailable [phone] Luis A Escobedo MD Unavailable [phone] Geri LozaC Unavailable [phone] Raina Patterson APRN LABORER YARD Unavailable [phone] Encounter Details Date Type Department Care Team (Late st Contact Info) Description 11/07/2022 MyC Medical Advice [facility] [place] 909 [facility] 4th [place] [phone] Geri Loza PA-C [address] [place] [address] 979835 Social History Tobacco Use Types Packs/Day Years [...] documented as of this encounter Care Teams Joint Cutter Relationship Specialty Start Date End Date Kaykay Duarte DRAMATIC ARTS HISTORIAN [address] [place] [address] PCP - General 10/15/22 Roderick Morelos MD [address] [place] 890005 Cardiovascular Disease 02/03/22 Magno Wood MD [address] [facility] 396 [place], [place] 748505 Otolaryngology 02/21/22 Sophie Ocasio AuD 909 [place], [place] 665055 Religious Leader Audiology 02/21/22 Henny Rosales, IT TECHNICAL SUPPORT SPECIALIST LABORER YARD [address] [place] [address] Assigned Heart and Vascular Provider 08/09/[address] [place] [address] 645335 Registered Dietitian Dietitian, Registered 09/02/22 Christiane Rodríguez MD [address] [place] [address] 396 [place] [address] Otolaryngology 11/12/22 Luis A Escobedo MD 420 [facility] 195 [place] [address] Assigned Surgical Provider 11/01/22 11/28/22 Chely Fernandez PA-C [address] [place] [address] 900135 Assigned Surgical Provider 11/29/22 02/06/23 Jing Cadena, IT TECHNICAL SUPPORT SPECIALIST INSURANCE CLAIMS ASSISTANT 420 [facility] 450 [place] [address] Clinical Nurse Specialist Anesthesiology 01/15/23 Radha Lopez [facility] [address] [place] [address] 143505 Pharmacist Pharmacist 01/16/23 Luis A Escobedo MD [address] [facility] [facility] 195 [place] [address] Assigned Surgical Provider 02/07/23 04/15/23 Geri Loza PA-C 909 [place] [address] Assigned Surgical Provider 04/16/23 Raina Pattesron APRN [facility] [address] [place], [place] 951735 Nurse Practitioner Cardiovascular Disease 05/11/23 documented as of this encounter
--- OUTSIDE RECORDS SUMMARY | 2024-01-08 09:52 | XMS_ITS | Encounter Summary ---
Author Organization [facility] Address [address] [place] [address] Care Team Providers Care Telecommunications Field Engineer Name Role Phone Roderick Morelos MD Unavailable [phone] Magno Wood MD Unavailable [phone] Sophie Ocasio AuD Unavailable Henny Rosales FINANCIAL AID FLEXIBLE NANNY Unavailable Sharee Oliva RD Unavailable [phone] Kaykay Duarte MASSAGE THERAPY INSTRUCTOR Primary Care Provider Christiane Rodríguez MD Unavailable Chely FernandezC Unavailable Jing Cadena FINANCIAL AID HOG SLAUGHTERER Unavailable [phone] Radha Lopez [facility] Unavailable [phone] Luis A Escobedo MD Unavailable [phone] Geri LozaC Unavailable Raina Patterson FINANCIAL AID FLEXIBLE NANNY Unavailable [phone] Encounter Details Date Type Department Care Team (Late st Contact Info) Description 12/04/2022 [facility] [address] [place] [phone] Kang Griffiths Social History Tobacco Use Types [...] documented as of this encounter Care Teams Telecommunications Field Engineer Relationship Specialty [place] [address] [place] [address] PCP - General 10/15/22 Roderick Morelos MD [address] [place] [address] Cardiovascular Disease 02/03/22 Magno Wood MD 420 [facility] 396 [place], [place] 094145 Otolaryngology 02/21/22 Sophie Ocasio AuD 909 [place], [place] 439195 Dealership General Manager Audiology 02/21/22 Henny Rosales, FINANCIAL AID FLEXIBLE NANNY [address] [place] [phone] Assigned Heart and Vascular Provider 08/09/[address] [place] [address] 903525 Registered Dietitian Dietitian, Registered 09/02/22 Christiane Rodríguez MD [address] [place] [address] 396 [place], [place] 008555 Otolaryngology 11/12/22 Chely Fernandez PA-C [address] [place] [address] 266465 Assigned Surgical Provider 11/29/22 02/06/23 Jing Cadena APRN HOG SLAUGHTERER [address] [place] [address] 450 [place] [address] Clinical Nurse Specialist Anesthesiology 01/15/23 Radha Lopez, [facility] [address] [place] [address] 176465 Pharmacist Pharmacist 01/16/23 Luis A Escobedo MD 420 [facility] 195 [place], [place] 795385 Assigned Surgical Provider 02/07/23 04/15/23 Geri Loza PA-C [address] [place] [address] 692905 Assigned Surgical Provider 04/16/23 Raina Patterson, FINANCIAL AID FLEXIBLE NANNY [address] [place] 734745 Nurse Practitioner Cardiovascular Disease 05/11/23 documented as of this encounter
--- OUTSIDE RECORDS SUMMARY | 2024-01-08 09:53 | XMS_ITS | Encounter Summary ---
Author Organization [facility] Address [address] [place] [address] 50061 Care Team Providers Care Cnc Mechanic Name Role Phone Roderick Morelos MD Unavailable [phone] Magno Wood MD Unavailable [phone] Sophie Ocasio Unavailable [phone] Henny Rosales COMMUNITY PLACEMENT WORKER NET SOLUTIONS ARCHITECT Unavailable [phone] [facility] Primary Care Pr ovider Sharee Oliva RD Unavailable [phone] Kaykay Duarte MOBILE UI/UX DESIGNER Primary Care Provider [phone] Christiane Rodríguez MD Unavailable [phone] Luis A Escobedo MD Unavailable +[phone] Chely Fernandez PA-C Unavailable [phone] Jing Cadena APRN MARINE DIESEL TECHNICIAN Unavailable + [phone] Radha Lopez [facility] Unavailable [phone] Luis A Escobedo MD Unavailable [phone] Geri LozaC Unavailable [phone] Raina Patterson COMMUNITY PLACEMENT WORKER NET SOLUTIONS ARCHITECT Unavailable +[phone] Encounter Details Date Type Department Care Team (Late st Contact Info) Description 09/29/2022 [facility] [address] [place] [address] Kang Griffiths Social History Tobacco [...] on filedocumented in this encounter Care Teams Cnc Mechanic Relationship Specialty Start Date End Date Clinic, [facility] [place] [address] [place] [address] PCP - General 08/19/22 10/14/22 Kaykay Duarte, MOBILE UI/UX DESIGNER [address] [place] [address] [place] [address] PCP - General 10/15/22 Roderick Morelos MD [address] [place] [address] Cardiovascular Disease 02/03/22 Magno [place] MD [address] [place] [address] 786965 Otolaryngology 02/21/22 Sophie Ocasio AuD [address] [place] [address] 038325 Glaze Maker Audiology 02/21/22 Henny Rosales, COMMUNITY PLACEMENT WORKER NET SOLUTIONS ARCHITECT [address] [place] [address] Assigned Heart and Vascular Provider 08/09/[address] 9 [place], [place] 420175 Registered Dietitian Dietitian, Registered 09/02/22 Christiane Rodríguez MD 420 [facility] 396 [place], [place] 202345 Otolaryngology 11/12/22 Luis A Escobedo MD [address] [place] [address] 712305 Assigned Surgical Provider 11/01/22 11/28/22 Chely Fernandez PA-C [address] [place] [address] 389925 Assigned Surgical Provider 11/29/22 02/06/23 Jing Cadena, COMMUNITY PLACEMENT WORKER MARINE DIESEL TECHNICIAN [address] [place] [address] 450 [place], [place] 157845 Clinical Nurse Specialist Anesthesiology 01/15/23 Radha Lopez, [facility] [address] [place] [address] 546915 Pharmacist Pharmacist 01/16/23 Luis A Escobedo MD [address] [place] [address] 195 [place], [place] 053215 Assigned Surgical Provider 02/07/23 04/15/23 Geri Loza PA-C 909 [place] [address] Assigned Surgical Provider 04/16/23 Raina Patterson APRN NET SOLUTIONS ARCHITECT [address] [place] [address] Nurse Practitioner Cardiovascular Disease 05/11/23 documented as of this encounter
--- OUTSIDE RECORDS SUMMARY | 2024-01-08 09:53 | XMS_ITS | Encounter Summary ---
Author Organization [facility] Address [address] [place] [address] 8[address]80 Care Team Providers Care Certified Rehabilitation Counselor Name Role Phone Roderick Morelos MD Unavailable [phone] Magno Wood MD Unavailable [phone] Sophie Ocasio Unavailable [phone] Henny Rosales GLOBAL CLINICAL LEADER LICENSED PROFESSIONAL COUNSELOR Unavailable Sharee Oliva RD Unavailable [phone] Kaykay Duarte VP TALENT MANAGEMENT Primary Care Provider [phone] Christiane Rodríguez MD Unavailable Luis A Escobedo MD Unavailable [phone] Chely FernandezC Unavailable [phone] Jing Cadena APRN MARKETING PROJECT SPECIALIST Unavailable Radha Lopez [facility] Unavailable [phone] Luis A Escobedo MD Unavailable [phone] Geri LozaC Unavailable [phone] Raina Patterson APRN LICENSED PROFESSIONAL COUNSELOR Unavailable [phone] Encounter Details Date Type Department Care Team (Late st Contact Info) Description 10/23/2022 External Order Results [facility] [address] [place] [address] Outside, Provider Class 3 severe obesity with [...] documented as of this encounter Care Teams Certified Rehabilitation Counselor Relationship Specialty [place] [address] [place] [address] [place] 148397 PCP - General 10/15/22 Roderick Morelos MD [address] [place] 651825 Cardiovascular Disease 02/03/22 Magno Wood MD [address] 703245 Otolaryngology 02/21/22 Sophie Ocasio AuD 909 [place], [place] 200135 Spring Repairer Helper Hand Audiology 02/21/22 Henny Rosales APRN LICENSED PROFESSIONAL COUNSELOR [address] [place] [phone] Assigned Heart and Vascular Provider 08/09/[address] [place] [address] 615225 Registered Dietitian Dietitian, Registered 09/02/22 Christiane Rodríguez MD [address] [place] [address] 396 [place], [place] 403365 Otolaryngology 11/12/22 Luis A Escobedo MD [address] [place] [address] 854125 Assigned Surgical Provider 11/01/22 11/28/22 Chely Fernandez PA-C [address] [place] [address] 895635 Assigned Surgical Provider 11/29/22 02/06/23 Jing Cadena, GLOBAL CLINICAL LEADER MARKETING PROJECT SPECIALIST [address] [place] [address] 179465 Clinical Nurse Specialist Anesthesiology 01/15/23 Radha Lopez, [facility] [address] [place] [address] 570635 Pharmacist Pharmacist 01/16/23 Luis A Escobedo MD [address] [place] [address] 957475 Assigned Surgical Provider 02/07/23 04/15/23 Geri Loza PA-C [address] [place] [address] 070035 Assigned Surgical Provider 04/16/23 Raina Patterson APRN [facility] [address] [place] [address] Nurse Practitioner Cardiovascular Disease 05/11/23 documented as of this encounter
--- OUTSIDE RECORDS SUMMARY | 2024-01-08 09:53 | XMS_ITS | Encounter Summary ---
Author Organization [facility] Address [address] [place] [address]11 Care Team Providers Care Holistic Nutritionist Name Role Phone Roderick Morelos MD Unavailable [phone] Magno Wood MD Unavailable [phone] Sophie Ocasio Unavailable [phone] Henny Rosales HEALTH INFORMATION CLERK TAILOR'S AIDE Unavailable Sharee Oliva RD Unavailable [phone] Kaykay Duarte PLASTER HELPER Primary Care Provider [phone] Christiane Rodríguez MD Unavailable Luis A Escobedo MD Unavailable [phone] Chely FernandezC Unavailable [phone] Jing Cadena APRN GRINDER SET UP OPERATOR JIG Unavailable Radha Lopez [facility] Unavailable [phone] Luis A Escobedo MD Unavailable [phone] Geri LozaC Unavailable [phone] Raina Patterson APRN TAILOR'S AIDE Unavailable [phone] Encounter Details Date Type Department Care Team (Late st Contact Info) Description 10/23/2022 External Order Results [facility] [address] [place] [address] Outside, Provider Class 3 severe obesity with [...] - BLOOD ORDERAB LES Performing Organization Address [facility]/ZIP Co de Phone Number BREEZE PFT [...] - BLOOD ORDERABL ES Performing Organization Address [facility]/ZIP Co de Phone Number MATTIEE PFT NON-INTERFACED [...] - BLOOD ORDERABL ES Performing Organization Address [facility]/ZIP Co de Phone Number MELIDAEZE PFT [...] documented as of this encounter Care Teams Holistic Nutritionist Relationship Specialty [place] [address] [place] [address] PCP - General 10/15/22 Roderick Morelos MD [address] [place], [place] 648455 Cardiovascular Disease 02/03/22 Magno Wood MD 420 [facility] 396 [place], [place] 132615 Otolaryngology 02/21/22 Sophie Ocasio AuD 909 [place], [place] 127525 Anodic Operator Audiology 02/21/22 Henny Rosales, HEALTH INFORMATION CLERK TAILOR'S AIDE [address] [place] [address] Assigned Heart and Vascular Provider 08/09/[address] 909 [place], [place] 396295 Registered Dietitian Dietitian, Registered 09/02/22 Christiane Rodríguez MD 420 [facility] 396 [place], [place] 215645 Otolaryngology 11/12/22 Luis A Escobedo MD [address] [place] [address] 195 [place], [place] 881595 Assigned Surgical Provider 11/01/22 11/28/22 Chely Fernandez PA-C [address] [place] [address] 155805 Assigned Surgical Provider 11/29/22 02/06/23 Jing Cadena, HEALTH INFORMATION CLERK GRINDER SET UP OPERATOR JIG 420 [facility] 450 [place], [place] 562855 Clinical Nurse Specialist Anesthesiology 01/15/23 Radha Lopez [facility] 9 [place], [place] 888065 Pharmacist Pharmacist 01/16/23 Luis A Escobedo MD 420 [facility] 195 [place], [place] 237845 Assigned Surgical Provider 02/07/23 04/15/23 Geri Loza PA-C 9 [place] [address] Assigned Surgical Provider 04/16/23 Raina Patterson APRN TAILOR'S AIDE [address] [place] [address] Nurse Practitioner Cardiovascular Disease 05/11/23 documented as of this encounter
--- OUTSIDE RECORDS SUMMARY | 2024-01-08 09:53 | XMS_ITS | Encounter Summary ---
Author Organization [facility] Address [address] [place] [address] 87[address] Care Team Providers Care Boiler Operator Name Role Phone Roderick Morelos MD Unavailable [phone] Magno Wood MD Unavailable [phone] Sophie Ocasio Unavailable [phone] Henny Rosales TELECOM ENGINEER APPRENTICE JOCKEY Unavailable [phone] [facility] Primary Care Pr ovider Sharee Oliva RD Unavailable [phone] Kaykay Duarte VACUUM EVAPORATION OPERATOR Primary Care Provider [phone] Christiane Rodríguez MD Unavailable [phone] Luis A Escobedo MD Unavailable [phone] Chely Fernandez PA-C Unavailable [phone] Jing Cadena APRN TRAFFIC OPERATOR Unavailable [phone] Radha Lopez [facility] Unavailable [phone] Luis A Escobedo MD Unavailable [phone] Geri LozaC Unavailable [phone] Raina Patterson TELECOM ENGINEER APPRENTICE JOCKEY Unavailable [phone] Encounter Details Date Type Department Care Team (Late st Contact Info) Description 09/15/2022 MyC Medical Advice [facility] [place] 319259 [facility] 4th [place] [address] Maria Guadalupe Wolfe Social History [...] on filedocumented in this encounter Care Teams Boiler Operator Relationship Specialty Start Date End Date Clinic, [facility] [place] [address] [place] [address] PCP - General 08/19/22 10/14/22 Kaykay Duarte, VACUUM EVAPORATION OPERATOR [address] [place] [address] PCP - General 10/15/22 Roderick Morelos MD [address] [place] [address] Cardiovascular Disease 02/03/22 Magno Wood MD [address] [place] [address] 874255 Otolaryngology 02/21/22 Sophie Ocasio AuD [address] [place] [address] 924105 Armature Balancer Audiology 02/21/22 Henny Rosales, TELECOM ENGINEER APPRENTICE JOCKEY [address] [place] [address] Assigned Heart and Vascular Provider 08/09/[address] 909 [place], [place] 470095 Registered Dietitian Dietitian, Registered 09/02/22 Christiane Rodríguez MD 420 [facility] 396 [place], [place] 126475 Otolaryngology 11/12/22 Luis A Escobedo MD [address] [place] [address] 195 [place], [place] 849995 Assigned Surgical Provider 11/01/22 11/28/22 Chely Fernandez PA-C [address] [place] [address] 885785 Assigned Surgical Provider 11/29/22 02/06/23 Jing Cadena, TELECOM ENGINEER TRAFFIC OPERATOR 420 [facility] 450 [place], [place] 691135 Clinical Nurse Specialist Anesthesiology 01/15/23 Radha Lopez, [facility] [address] [place] [address] 555545 Pharmacist Pharmacist 01/16/23 Luis A Escobedo MD [address] [place] [address] 195 [place], [place] 068315 Assigned Surgical Provider 02/07/23 04/15/23 Geri Loza PA-C 909 [place] [address] Assigned Surgical Provider 04/16/23 Raina Patterson APRN APPRENTICE JOCKEY [address] [place] [address] Nurse Practitioner Cardiovascular Disease 05/11/23 documented as of this encounter
--- OUTSIDE RECORDS SUMMARY | 2024-01-08 09:53 | XMS_ITS | Encounter Summary ---
Author Organization [facility] Address [address] [place] [address] 29723 Care Team Providers Care Case Picker Name Role Phone Roderick Morelos MD Unavailable [phone] Magno Wood MD Unavailable [phone] Sophie Ocasio Unavailable [phone] Henny Rosales MANAGER RADIO ACUPRESSURE THERAPIST Unavailable [phone] [facility] Primary Care Pr ovider Sharee Oliva RD Unavailable [phone] Kaykay Duarte JOINT MACHINE OPERATOR Primary Care Provider [phone] Christiane Rodríguez MD Unavailable [phone] Luis A Escobedo MD Unavailable +[phone] Chely Fernandez PA-C Unavailable [phone] Jing Cadena APRN PASSENGER BOOKING CLERK Unavailable + [phone] Radha Lopez [facility] Unavailable [phone] Luis A Escobedo MD Unavailable [phone] Geri LozaC Unavailable [phone] Raina Patterson MANAGER RADIO ACUPRESSURE THERAPIST Unavailable [phone] Encounter Details Date Type Department Care Team (Late st Contact Info) Description 10/03/2022 MyC Medical Advice [facility] [place] [address] [place] [address] 4th [place] [phone] Geri Loza PA-C 9 [place] [address] Social History Tobacco Use Types Packs/Day Years [...] on filedocumented in this encounter Care Teams Case Picker Relationship Specialty Start Date End Date Clinic, [facility] [place] [address] [place] [address] PCP - General 08/19/22 10/14/22 Kaykay Duarte JOINT MACHINE OPERATOR [address] [place] [address] [place] [address] PCP - General 10/15/22 Roderick Morelos MD [address] [place] [address] Cardiovascular Disease 02/03/22 Magno Wood MD [address] [place] [place] [address] 396 [place], [place] 442995 Otolaryngology 02/21/22 Sophie Ocasio, AuD [address] [place] [address] 456935 Supervisor [place] Audiology 02/21/22 Henny Rosales APRN ACUPRESSURE THERAPIST [address] [place] [address] Assigned Heart and Vascular Provider 08/09/[address] [place] [address] 649275 Registered Dietitian Dietitian, Registered 09/02/22 Christiane Rodríguez MD [address] [place] [place] [address] 396 [place], [place] 626605 Otolaryngology 11/12/22 Luis A Escobedo MD [address] [place] [address] 397025 Assigned Surgical Provider 11/01/22 11/28/22 Chely Fernandez PA-C [address] [place] [address] 542925 Assigned Surgical Provider 11/29/22 02/06/23 Jing Cadena MANAGER RADIO PASSENGER BOOKING CLERK [address] [place] [place] [address] 450 [place], [place] 312255 Clinical Nurse Specialist Anesthesiology 01/15/23 Radha Lopez [facility] [address] [place] [address] 957725 Pharmacist Pharmacist 01/16/23 Luis A Escobedo MD [address] [place] [place] [address] 195 [place], [place] 114805 Assigned Surgical Provider 02/07/23 04/15/23 Geri Loza PA-C 9 [place] [address] Assigned Surgical Provider 04/16/23 Raina Patterson APRN ACUPRESSURE THERAPIST [address] [place], [place] 047425 Nurse Practitioner Cardiovascular Disease 05/11/23 documented as of this encounter
--- OUTSIDE RECORDS SUMMARY | 2024-01-08 09:53 | XMS_ITS | Encounter Summary ---
Author Organization [facility] Address [address] [place] [address]681 Care Team Providers Care Pelt Inspector Name Role Phone Roderick Morelos MD Unavailable [phone] Magno Wood MD Unavailable [phone] Sophie Ocasio Unavailable [phone] Henny Rosales GREEN MEAT GRADER VETERINARY EPIDEMIOLOGIST Unavailable Sharee Oliva [address] Unavailable [phone] Kaykay Duarte GRATED CHEESE MAKER Primary Care Provider [phone] Christiane Rodríguez MD Unavailable Luis A Escobedo MD Unavailable +[phone] Chely Fernandez-C Unavailable [phone] Jing Cadena APRN DETASSELER Unavailable Radha Lopez [facility] Unavailable [phone] Luis A Escobedo MD Unavailable [phone] Geri LozaC Unavailable [phone] Raina Patterson APRN VETERINARY EPIDEMIOLOGIST Unavailable [phone] Encounter Details Date Type Department Care Team (Late st Contact Info) Description 11/03/2022 [facility] [place] 909 [facility] 4th [place] [address] Kang Griffiths Social History Tobacco [...] documented as of this encounter Care Teams Pelt Inspector Relationship Specialty [place] [address] [place] [address] PCP - General 10/15/22 Roderick Morelos MD [address] [place] [address] Cardiovascular Disease 02/03/22 Magno Wood MD [address] [place] [address] 396 [place], [place] 278795 Otolaryngology 02/21/22 Sophie Ocasio, AuD [address] [place] [address] 890725 Manager Operations And Procurement Audiology 02/21/22 Henny Rosales APRN VETERINARY EPIDEMIOLOGIST [address] [place] [address] Assigned Heart and Vascular Provider 08/09/[address] [place] [address] Registered Dietitian Dietitian, Registered 09/02/22 Christiane Rodríguez MD [address] [place] [address] 396 [place], [place] 217815 Otolaryngology 11/12/22 Luis A Escobedo MD [address] [place] [address] 195 [place], [place] 121555 Assigned Surgical Provider 11/01/22 11/28/22 Chely Fernandez PA-C [address] [place] [address] 843565 Assigned Surgical Provider 11/29/22 02/06/23 Jing Cadena GREEN MEAT GRADER DETASSELER 420 [facility] 450 [place], [place] 175345 Clinical Nurse Specialist Anesthesiology 01/15/23 Radah Lopez [facility] [address] [place] [address] 408865 Pharmacist Pharmacist 01/16/23 Luis A Escobedo MD [address] [place] [address] 195 [place], [place] 141115 Assigned Surgical Provider 02/07/23 04/15/23 Geri Loza PA-C 9 [place], [place] 792045 Assigned Surgical Provider 04/16/23 Raina Patterson APRN CNP [address] [place] [address] Nurse Practitioner Cardiovascular Disease 05/11/23 documented as of this encounter
--- OUTSIDE RECORDS SUMMARY | 2024-01-08 09:53 | XMS_ITS | Encounter Summary ---
Author Organization [facility] Address [address] [place] [address] 7[address]93 Care Team Providers Care Oncology Rep Specialist Name Role Phone Roderick Morelos MD Unavailable [phone] Magno Wood MD Unavailable [phone] Sophie Ocasio Unavailable [phone] Henny Rosales CLIENT EVALUATOR SOCIAL WORKER CLINICAL Unavailable Sharee Oliva RD Unavailable [phone] Kaykay Duarte BRAKE LINING CURER Primary Care Provider [phone] Christiane Rodríguez MD Unavailable Luis A Escobedo MD Unavailable +[phone] Chely Fernandez-C Unavailable +[phone] Jing Cadena APRN SPORTS EQUIPMENT SUPERVISOR Unavailable Radha Lopez [facility] Unavailable +[phone] Luis A Escobedo MD Unavailable +[phone] Geri LozaC Unavailable [phone] Raina Patterson APRN SOCIAL WORKER CLINICAL Unavailable +[phone] Encounter Details Date Type Department Care Team (Late st Contact Info) Description 10/17/2022 MyC Medical Advice [facility] [place] 909 [facility] 4th [place] [address] Henny Arguello RN Social History [...] documented as of this encounter Care Teams Oncology Rep Specialist Relationship Specialty [place] [address] [place] [address] PCP - General 10/15/22 Roderick Morelos MD [address] [place] [address] Cardiovascular Disease 02/03/22 Magno Wood MD [address] [place] [address] 396 [place], [place] 882405 Otolaryngology 02/21/22 Sophie Ocasio, AuD [address] [place] [address] [phone] Chairman President And Chief Executive Officer Audiology 02/21/22 Henny Rosales APRN SOCIAL WORKER CLINICAL [address] [place] [address] Assigned Heart and Vascular Provider 08/09/[address] [place] [address] [phone] Registered Dietitian Dietitian, Registered 09/02/22 Christiane Rodríguez MD [address] [place] [address] 396 [place], [place] 546755 Otolaryngology 11/12/22 Luis A Escobedo MD [address] [place] [address] [id number] Assigned Surgical Provider 11/01/22 11/28/22 Chely Fernandez PA-C [address] [place] [address] 819375 Assigned Surgical Provider 11/29/22 02/06/23 Jing Cadena APRN SPORTS EQUIPMENT SUPERVISOR [address] [place] [address] 450 [place], [place] 005765 Clinical Nurse Specialist Anesthesiology 01/15/23 Radha Lopez [facility] [address] [place] [address] 383875 Pharmacist Pharmacist 01/16/23 Luis A Escobedo MD [address] [place] [address] 195 [place], [place] 190195 Assigned Surgical Provider 02/07/23 04/15/23 Geri Loza PA-C 9 [place], [place] 969875 Assigned Surgical Provider 04/16/23 Raina Patterson APRN CNP [address] [place] [address] Nurse Practitioner Cardiovascular Disease 05/11/23 documented as of this encounter
--- OUTSIDE RECORDS SUMMARY | 2024-01-08 09:53 | XMS_ITS | Encounter Summary ---
Author Organization [facility] Address [address] [place] [address] 9[address]75 Care Team Providers Care Stacker Tender Name Role Phone Roderick Morelos MD Unavailable [phone] Magno Wood MD Unavailable [phone] Sophie Ocasio Unavailable [phone] Henny Rosales SECURITY DIRECTOR FLIGHT PARAMEDIC Unavailable +[phone] [facility] Primary Care Pr ovider Sharee Oliva RD Unavailable [phone] Kaykay Duarte DATABASE ADMIN Primary Care Provider [phone] Christiane Rodríguez MD Unavailable [phone] Luis A Escobedo MD Unavailable +[phone] Chely Fernandez PA-C Unavailable [phone] Jing Cadena APRN AGRICULTURAL SCIENCE PROFESSOR Unavailable + [phone] Radha Lopez [facility] Unavailable +[phone] Luis A Escobedo MD Unavailable +[phone] Geri LozaC Unavailable [phone] Raina Patterson SECURITY DIRECTOR FLIGHT PARAMEDIC Unavailable +[phone] Encounter Details Date Type Department Care Team (Late st Contact Info) Description 09/09/2022 Telephone [facility] [place] [address] [place] [address] 4th [place] [address] Geri Loza PA-C 909 [place] [address] Social History Tobacco Use Types Packs/Day Years [...] Geri Gaytan had suggested Marquez. Please advise. [phone] okay to leave VM or send MyChart, patient isn't always able to answer when she's working documented in this encounter Plan of Treatment Not on file documented as of this encounter Visit Diagnoses Not on filedocumented in this encounter Care Teams Stacker Tender Relationship Specialty Start [place] [address] [place] [address] PCP - General 08/19/22 10/14/22 Kaykay Duarte DATABASE ADMIN 00499 [facility] [place] [address] PCP - General 10/15/22 Roderick Morelos MD [address] [place] [address] Cardiovascular Disease 02/03/22 Magno Wood MD [address] [place] [address] 396 [place] [address] Otolaryngology 02/21/22 Sophie Ocasio AuD 9 [place] [address] Retread Operator Audiology 02/21/22 Henny Rosales APRN FLIGHT PARAMEDIC [address] [place] [address]46[address] Assigned Heart and Vascular Provider 08/09/[address] [place] [address] 431985 Registered Dietitian Dietitian, Registered 09/02/22 Christiane Rodríguez MD [address] [place] [address] Otolaryngology 11/12/22 Luis A Escobedo MD [address] [place] [address] 50674 Assigned Surgical Provider 11/01/22 11/28/22 Chely Fernandez PA-C [address] [place] [address] 20117 Assigned Surgical Provider 11/29/22 02/06/23 Jing Cadena APRN AGRICULTURAL SCIENCE PROFESSOR 420 [facility] 450 [place], [place] 425425 Clinical Nurse Specialist Anesthesiology 01/15/23 Radha Lopez, [facility] 909 [place], [place] 703715 Pharmacist Pharmacist 01/16/23 Luis A Escobedo MD 420 [facility] 195 [place], [place] 006485 Assigned Surgical Provider 02/07/23 04/15/23 Geri Loza PA-C 909 [place] [address] Assigned Surgical Provider 04/16/23 Raina Patterson APRN FLIGHT PARAMEDIC [address] [place] 019055 Nurse Practitioner Cardiovascular Disease 05/11/23 documented as of this encounter
--- OUTSIDE RECORDS SUMMARY | 2024-01-08 09:53 | XMS_ITS | Encounter Summary ---
Author Organization [facility] Address [address] [place] [address] Care Team Providers Care Instrumentation Chemist Name Role Phone Roderick Morelos MD Unavailable [phone] Magno Wood MD Unavailable [phone] Sophie Ocasio Unavailable [phone] Henny Rosales YARD LOADER OPERATOR ANALYSIS SPECIALIST Unavailable [phone] [facility] Primary Care Pr ovider Sharee Oliva RD Unavailable Kaykay Duarte OVERHEAD CRANE OPERATOR Primary Care Provider [phone] Christiane Rodríguez MD Unavailable [phone] Luis A Escobedo MD Unavailable +[phone] Chely Fernandez PA-C Unavailable [phone] Jing Cadena APRN INSEMINATION WORKER Unavailable + [phone] Radha Lopez [facility] Unavailable +[phone] Luis A Escobedo MD Unavailable +[phone] Geri LozaC Unavailable [phone] Raina Patterson YARD LOADER OPERATOR ANALYSIS SPECIALIST Unavailable [phone] Encounter Details Date Type Department Care Team (Late st Contact Info) Description 09/02/2022 MyC Medical Advice [facility] [place] [address] [place] [address] 4th [place] [address] Geri Loza PA-C 909 [place] [address] Social History Tobacco Use Types Packs/Day Years [...] on filedocumented in this encounter Care Teams Instrumentation Chemist Relationship Specialty Start [place] [address] [place] [address] PCP - General 08/19/22 10/14/22 Kaykay Duarte NP [address] [place] [address] Dr [place] 180407 PCP - General 10/15/22 Roderick Morelos MD [address] [place], [place] 608695 Cardiovascular Disease 02/03/22 Magno Wood MD [address] [place] [address] 396 [place], [place] 816235 Otolaryngology 02/21/22 Sophie Ocasio AuD [address] [place] [address] 848575 Mechanical Piping Designer Audiology 02/21/22 Henny Rosales APRN ANALYSIS SPECIALIST [address] [place] [address] Assigned Heart and Vascular Provider 08/09/[address] [place] [address] Registered Dietitian Dietitian, Registered 09/02/22 Christiane Rodríguez MD [address] [place] [address] 396 [place] [address] Otolaryngology 11/12/22 Luis A Escobedo MD [address] [place] [address] 195 [place] [address] Assigned Surgical Provider 11/01/22 11/28/22 Chely Fernandez PA-C [address] [place] [address] [phone] Assigned Surgical Provider 11/29/22 02/06/23 Jing Cadena APRN INSEMINATION WORKER [address] [place] [address] 450 [place] [address] Clinical Nurse Specialist Anesthesiology 01/15/23 Radha Lopez, [facility] [address] [place] [address] Pharmacist Pharmacist 01/16/23 Luis A Escobedo MD 420 [facility] 195 [place], [place] 592225 Assigned Surgical Provider 02/07/23 04/15/23 Geri Loza PA-C 909 [place], [place] 122145 Assigned Surgical Provider 04/16/23 Raina Patterson APRN ANALYSIS SPECIALIST [address] [place], [place] 147585 Nurse Practitioner Cardiovascular Disease 05/11/23 documented as of this encounter
--- OUTSIDE RECORDS SUMMARY | 2024-01-08 09:53 | XMS_ITS | Encounter Summary ---
Author Organization [facility] Address [address] [place] [address] 47566 Care Team Providers Care Lumber Sorter Machine Name Role Phone Roderick Morelos MD Unavailable [phone] Magno Wood MD Unavailable [phone] Sophie Ocasio Unavailable [phone] Henny Rosales SHAMPOOER HANGING FLAGS DECORATOR Unavailable Sharee Oliva RD Unavailable [phone] Kaykay Duarte HANDLE ASSEMBLER Primary Care Provider [phone] Christiane Rodríguez MD Unavailable Luis A Escobedo MD Unavailable +[phone] Chely FernandezC Unavailable [phone] Jing Cadena APRN DIRECTOR SALES SUPPORT Unavailable +[phone] Radha Lopez [facility] Unavailable [phone] Luis A Escobedo MD Unavailable +[phone] Geri LozaC Unavailable [phone] Raina Patterson APRN HANGING FLAGS DECORATOR Unavailable [phone] Encounter Details Date Type Department Care Team (Late st Contact Info) Description 10/15/2022 MyC Medical [facility] [place] 909 [facility] [address] 4th [place] [address] Luis A Escobedo MD [address] [place] [address] [facility] 195 [place], [place] 841815 Social History Tobacco Use Types Packs/Day Years [...] of this encounter Care Teams Lumber Sorter Machine Relationship Specialty [place] [address] [place] [address] PCP - General 10/15/22 Roderick Morelos MD [address] [place] 914675 Cardiovascular Disease 02/03/22 Magno Wood MD [address] [place] [address] [facility] 396 [place], [place] 595415 Otolaryngology 02/21/22 Sophie Ocasio AuD 909 [place], [place] 218735 Warehouse General Laborer Audiology 02/21/22 Henny Rosales, SHAMPOOER HANGING FLAGS DECORATOR [address] [place] [address] Assigned Heart and Vascular Provider 08/09/[address] [place] [address] [phone] Registered Dietitian Dietitian, Registered 09/02/22 Christiane Rodríguez MD [address] [place] [address] 396 [place] [address] Otolaryngology 11/12/22 Luis A Escobedo MD 420 [facility] 195 [place] [address] Assigned Surgical Provider 11/01/22 11/28/22 Chely Fernandez PA-C [address] [place] [address] 349625 Assigned Surgical Provider 11/29/22 02/06/23 Jing Cadena, SHAMPOOER DIRECTOR SALES SUPPORT 420 [facility] 450 [place] [address] Clinical Nurse Specialist Anesthesiology 01/15/23 Radha Lopez [facility] [address] [place] [address] 370535 Pharmacist Pharmacist 01/16/23 Luis A Escobedo MD [address] [place] [address] [facility] 195 [place] [address] Assigned Surgical Provider 02/07/23 04/15/23 Grei Loza PA-C 909 [place] [address] Assigned Surgical Provider 04/16/23 Raina Patterson APRN [facility] [address] [place], [place] 685655 Nurse Practitioner Cardiovascular Disease 05/11/23 documented as of this encounter
--- OUTSIDE RECORDS SUMMARY | 2024-01-08 09:53 | XMS_ITS | Encounter Summary ---
Author Organization [place] Address [address] [place] [address] 23458 Care Team Providers Care Ranch Hand Name Role Phone Roderick Morelos MD Unavailable [phone] Magno Wood MD Unavailable [phone] Sophie Ocasio Unavailable [phone] Henny Rosales VARNISHING MACHINE OPERATOR ORACLE FORMS DEVELOPER Unavailable [phone] [facility] Primary Care Pr ovider Sharee Oliva RD Unavailable [phone] Kaykay Duarte MACHINE ZIPPER TRIMMER Primary Care Provider [phone] Christiane Rodríguez MD Unavailable [phone] Luis A Escobedo MD Unavailable +[phone] Chely Fernandez PA-C Unavailable [phone] Jing Cadena APRN PRE OWNED SALES CONSULTANT Unavailable + [phone] Radha Lopez [facility] Unavailable +[phone] Luis A Escobedo MD Unavailable +[phone] Geri LozaC Unavailable [phone] Raina Patterson VARNISHING MACHINE OPERATOR ORACLE FORMS DEVELOPER Unavailable [phone] Encounter Details Date Type Department Care Team (Late st Contact Info) Description 09/15/2022 [facility] [place] 785929 [facility] 4th [place] [address] Kang Griffiths Social History Tobacco [...] on filedocumented in this encounter Care Teams Ranch Hand Relationship Specialty Start Date End Date [place] [address] [place] [address] PCP - General 08/19/22 10/14/22 Kaykay Duarte, MACHINE ZIPPER TRIMMER [address] [place] [address] PCP - General 10/15/22 Roderick Morelos MD [address] [place] [address] Cardiovascular Disease 02/03/22 Magno Wood MD [address] [place] [address] 737555 Otolaryngology 02/21/22 Sophie Ocasio AuD [address] [place] [address] [phone] Transition Rn Audiology 02/21/22 Henny Rosales, VARNISHING MACHINE OPERATOR ORACLE FORMS DEVELOPER [address] [place] [address] Assigned Heart and Vascular Provider 08/09/[address] 909 [place], [place] 725385 Registered Dietitian Dietitian, Registered 09/02/22 Christiane Rodríguez MD 420 [facility] 396 [place], [place] 851765 Otolaryngology 11/12/22 Luis A Escobedo MD [address] [place] [address] 195 [place], [place] 579695 Assigned Surgical Provider 11/01/22 11/28/22 Chely Fernandez PA-C [address] [place] [address] 435535 Assigned Surgical Provider 11/29/22 02/06/23 Jing Cadena, VARNISHING MACHINE OPERATOR PRE OWNED SALES CONSULTANT 420 [facility] 450 [place], [place] 284185 Clinical Nurse Specialist Anesthesiology 01/15/23 Radha Lopez, [facility] [address] [place] [address] 687665 Pharmacist Pharmacist 01/16/23 Luis A Escobedo MD [address] [place] [address] 195 [place], [place] 818905 Assigned Surgical Provider 02/07/23 04/15/23 Geri Loza PA-C 909 [place] [address] Assigned Surgical Provider 04/16/23 Raina Patterson APRN ORACLE FORMS DEVELOPER [address] [place] [address] Nurse Practitioner Cardiovascular Disease 05/11/23 documented as of this encounter
--- OUTSIDE RECORDS SUMMARY | 2024-01-08 09:53 | XMS_ITS | Encounter Summary ---
Author Organization [place] Address [address] [place] [address]407 Care Team Providers Care Powder Operator Name Role Phone Roderick Morelos MD Unavailable [phone] Magno Wood MD Unavailable [phone] Sophie Ocasio Unavailable [phone] CHANGE ROOF BOLTER Unavailable [phone] [facility] Primary Care Pr ovider Sharee Oliva RD Unavailable [phone] Kaykay Duarte BEAN SPROUT LABORER Primary Care Provider [phone] Christiane Rodríguez MD Unavailable [phone] Luis A Escobedo MD Unavailable +[phone] Chely Fernandez PA-C Unavailable [phone] Jing Cadena APRN COMPUTER SYSTEMS HARDWARE ANALYST Unavailable + [phone] Radha Lopez [facility] Unavailable +[phone] Luis A Escobedo MD Unavailable +[phone] Geri LozaC Unavailable [phone] CHANGE ROOF BOLTER Unavailable +[phone] Encounter Details Date Type Department Care Team (Late st Contact Info) Description 09/02/2022 MyC Medical Advice [facility] [place] [address] [place] [address] 4th [place] [address] Geri Loza PA-C 909 [place] [address] Social History Tobacco Use Types Packs/Day Years [...] on filedocumented in this encounter Care Teams Powder Operator Relationship Specialty Start [place] [address] [place] [address] PCP - General 08/19/22 10/14/22 Kaykay Duarte NP [address] [place] [address] [place] [id number] PCP - General 10/15/22 Roderick Morelos MD [address] [place], [place] 100515 Cardiovascular Disease 02/03/22 Magno Wood MD [address] [place] [address] 396 [place], [place] 901205 Otolaryngology 02/21/22 Sophie Ocasio AuD [address] [place] [address] 738145 Natural Resources Technician Audiology 02/21/[address] PL[address] CHANGE ROOF BOLTER [address] [place] [address] Assigned Heart and Vascular Provider 08/09/[address] [place] [address] Registered Dietitian Dietitian, Registered 09/02/22 Christiane Rodríguez MD [address] [place] [address] 396 [place] [address] Otolaryngology 11/12/22 Luis A Escobedo MD [address] [place] [address] 195 [place] [address] Assigned Surgical Provider 11/01/22 11/28/22 Chely Fernandez PA-C [address] [place] [address] 441365 Assigned Surgical Provider 11/29/22 02/06/23 Jing Cadena APRN COMPUTER SYSTEMS HARDWARE ANALYST [address] [place] [address] 450 [place] [address] Clinical Nurse Specialist Anesthesiology 01/15/23 Radha Lopez, [facility] [address] [place] [address] Pharmacist Pharmacist 01/16/23 Luis A Escobedo MD 420 [facility] 195 [place], [place] 338605 Assigned Surgical Provider 02/07/23 04/15/23 Geri Loza PA-C 909 [place], [place] 579345 Assigned Surgical Provider 04/16/[address] Rain[address] CHANGE ROOF BOLTER [address] [place], [place] 217635 Nurse Practitioner Cardiovascular Disease 05/11/23 documented as of this encounter
--- OUTSIDE RECORDS SUMMARY | 2024-01-08 09:53 | XMS_ITS | Encounter Summary ---
Author Organization [place] Address [address] [place] [address] 89992 Care Team Providers Care Computer Sciences Professor Name Role Phone Roderick Morelos MD Unavailable [phone] Magno Wood MD Unavailable [phone] Sophie Ocasio Unavailable [phone] Henny Rosales PERSONAL CARE ATTENDANT GRIZZLYMAN Unavailable Sharee Oliva RD Unavailable [phone] Kaykay Duarte CODING VALIDATOR Primary Care Provider [phone] Christiane Rodríguez MD Unavailable Luis A Escobeod MD Unavailable +[phone] Chely Fernandez-C Unavailable +[phone] Jing Cadena APRN OPERATING ROOM SPECIALIST Unavailable Radha Lopez [facility] Unavailable [phone] Luis A Escobedo MD Unavailable +[phone] Geri LozaC Unavailable [phone] Raina Patterson PERSONAL CARE ATTENDANT GRIZZLYMAN Unavailable [phone] Encounter Details Date Type Department Care Team (Late st Contact Info) Description 10/16/2022 MyC Medical Advice Initial Department [facility] [place] Social History Tobacco Use Types Packs/Day Years [...] documented as of this encounter Care Teams Computer Sciences Professor Relationship Specialty Start Date End Date Kaykay Duarte, CODING VALIDATOR [address] [place] [address] [place] 756927 PCP - General 10/15/22 Roderick Morelos MD [address] [place], [place] 541645 Cardiovascular Disease 02/03/22 Magno Wood MD 420 [facility] 396 [place], [place] 090195 Otolaryngology 02/21/22 Sophie Ocasio AuD 909 [place], [place] 826155 Volleyball Assistant Coach Audiology 02/21/22 Henny Rosales APRN GRIZZLYMAN [address] [place] [address] Assigned Heart and Vascular Provider 08/09/[address] 909 [place], [place] 988065 Registered Dietitian Dietitian, Registered 09/02/22 Christiane Rodríguez MD 420 [facility] 396 [place], [place] 124125 Otolaryngology 11/12/22 Luis A Escobedo MD [address] [place] [address] 195 [place] [address] Assigned Surgical Provider 11/01/22 11/28/22 Chely Fernandez PA-C [address] [place] [address] 832195 Assigned Surgical Provider 11/29/22 02/06/23 Jing Cadena, PERSONAL CARE ATTENDANT OPERATING ROOM SPECIALIST 420 [facility] 450 [place], [place] 998555 Clinical Nurse Specialist Anesthesiology 01/15/23 Radha Lopez, [facility] 9 [place], [place] 204185 Pharmacist Pharmacist 01/16/23 Luis A Escobedo MD 420 [facility] 195 [place], [place] 293165 Assigned Surgical Provider 02/07/23 04/15/23 Geri Loza PA-C 9 [place] [address] Assigned Surgical Provider 04/16/23 Raina Patterson APRN GRIZZLYMAN [address] [place] [address] Nurse Practitioner Cardiovascular Disease 05/11/23 documented as of this encounter
--- OUTSIDE RECORDS SUMMARY | 2024-01-08 09:53 | XMS_ITS | Encounter Summary ---
Author Organization [place] Address [address] [place] [address] Care Team Providers Care Senior Instrumentation Engineer Name Role Phone Roderick Morelos MD Unavailable [phone] Magno Wood MD Unavailable [phone] Sophie Ocasio Unavailable +[phone] Henny Rosales MARZIPAN MOLDER WEB DEVELOPMENT INSTRUCTOR Unavailable +[phone] [facility] Primary Care Pr ovider Sharee Oliva RD Unavailable +[phone] Kaykay Duarte STEEL HEATER Primary Care Provider [phone] Christiane Rodríguez MD Unavailable +[phone] Luis A Escobedo MD Unavailable +[phone] Chely Fernandez PA-C Unavailable +[phone] Jing Cadena APRN ASTROCHEMIST Unavailable + [phone] Radha Lopez [facility] Unavailable +- [phone] Luis A Escobedo MD Unavailable +[phone] Geri LozaC Unavailable [phone] Raina Patterson MARZIPAN MOLDER WEB DEVELOPMENT INSTRUCTOR Unavailable +[phone] Encounter Details Date Type Department Care Team (Late st Contact Info) Description 09/09/2022 MyC Medical Advice [facility] [address] [place] [address] Tanya Larsen RN Social History [...] filedocumented in this encounter Care Teams Senior Instrumentation Engineer Relationship Specialty Start Date End Date Clinic, [place] [address] [place] [address] PCP - General 08/19/22 10/14/22 Kaykay Duarte, STEEL HEATER [address] [place] [address] [facility] [place] [address] PCP - General 10/15/22 Roderick Morelos MD [address] [place], [place] 7[address] Cardiovascular Disease 02/03/22 Magno Wood MD [address] [place] [address] [phone] Otolaryngology 02/21/22 Sophie Ocasio AuD [address] [place] [address] 213985 Globe Tester Audiology 02/21/22 Henny Rosales, MARZIPAN MOLDER WEB DEVELOPMENT INSTRUCTOR [address] [place] [address] Assigned Heart and Vascular Provider 08/09/[address] 909 [place] [address] Registered Dietitian Dietitian, Registered 09/02/22 Christiane Rodríguez MD 420 [facility] 396 [place], [place] 338915 Otolaryngology 11/12/22 Luis A Escobedo MD [address] [place] [address] 843365 Assigned Surgical Provider 11/01/22 11/28/22 Chely Fernandez PA-C [address] [place] [address] 265295 Assigned Surgical Provider 11/29/22 02/06/23 Jing Cadena, MARZIPAN MOLDER ASTROCHEMIST [address] [place] [address] 450 [place], [place] 114175 Clinical Nurse Specialist Anesthesiology 01/15/23 Radha Lopez, [facility] [address] [place] [address] 426445 Pharmacist Pharmacist 01/16/23 Luis A Escobedo MD [address] [place] [address] 195 [place], [place] 380435 Assigned Surgical Provider 02/07/23 04/15/23 Geri Loza PA-C 909 [place] [address] Assigned Surgical Provider 04/16/23 Raina Patterson APRN WEB DEVELOPMENT INSTRUCTOR [address] [place] [address] Nurse Practitioner Cardiovascular Disease 05/11/23 documented as of this encounter
--- OUTSIDE RECORDS SUMMARY | 2024-01-08 09:53 | XMS_ITS | Encounter Summary ---
Author Organization [place] Address [address] [place] [address] Care Team Providers Care Pianos And Organs Salesperson Name Role Phone Roderick Morelos MD Unavailable [phone] Magno Wood MD Unavailable [phone] Sophie Ocasio Unavailable +[phone] Henny Rosales SUPERVISOR CONTACT LENS DIRECTOR PROCESS Unavailable +[phone] [facility] Primary Care Pr ovider Sharee Oliva RD Unavailable [phone] Kaykay Duarte EMBOSSING TOOLSETTER Primary Care Provider [phone] Christiane Rodríguez MD Unavailable +[phone] Luis A Escobedo MD Unavailable +[phone] Chely Fernandez PA-C Unavailable +[phone] Jing Cadena SUPERVISOR CONTACT LENS INTERLOCKING PAVEMENT INSTALLER Unavailable + [phone] Radha Lopez [facility] Unavailable +- [phone] Luis A Escobedo MD Unavailable +[phone] Geri Loza PA-C Unavailable +[phone] Raina Patterson SUPERVISOR CONTACT LENS DIRECTOR PROCESS Unavailable +[phone] Reason for Visit * Reason Onset Date Comments Prior Auth - Medication 09/03/2022 Orlistat -PA DENIED Encounter Details Date Type Department Care Team (Late st Contact Info) Description 09/03/2022 Telephone [facility] [address] [place] [address] Geri Loza PA-C 909 [place], [place] 044985 Prior Auth - Medication (Orlistat-PA DENIED ) [...] Team PA Initiation Medication: Orlistat Insurance Company: [place] [facility] - Pharmacy Filling the Rx: [id number] - [place], [place] - [address] [place] Filling Pharmacy Filling Pharmacy Fax: Start Date: [...] ?? Gastric sleeve was completed 08/09/[address] [facility] [address] Barillas. Starting weight 338lb, BMI 56.25. She felt that instantly did not see expected weight loss results. Per chart review had lost 8lbsby 3 months post op and has followed up with [facility] since. She has lost 38lbs since surgery, andhas been able maintain weight loss of 305lbs for many years. However, continues to feel that is inadequet weight loss and wanted to discuss a conversion to RYGB today. Insurance Name: Insurance ID: Pharmacy Information (if different than what is on RX) Name: [id number] - [place] - [id number] [place] * Telephone Encounter - Rowena Small - 09/03/2022 8:44 AM CDT Reason for Call: Prior Auth Detailed comments: Pt states [facility] said a PA is required [...] on filedocumented in this encounter Care Teams Pianos And Organs Salesperson Relationship Specialty Start Date End Date Clinic, [place] [address] [place] [address] PCP - General 08/19/22 10/14/22 Kaykay Duarte, EMBOSSING TOOLSETTER [address] [place] [address] PCP - General 10/15/22 Roderick Morelos MD [address] [place] [address] Cardiovascular Disease 02/03/22 Magno Wood MD [address] [place] [address] 396 [place], [place] 555665 Otolaryngology 02/21/22 Sophie Ocasio AuD [address] [place] [address] 057755 [place] Audiology 02/21/22 Henny Rosales APRN DIRECTOR PROCESS [address] [place] [id number] Assigned Heart and Vascular Provider 08/09/[address] [place] [address] [phone] Registered Dietitian Dietitian, Registered 09/02/22 Christiane Rodríguez MD 420 [facility] 396 [place], [place] 428475 Otolaryngology 11/12/22 Luis A Escobedo MD 420 [facility] 195 [place], [place] 451735 Assigned Surgical Provider 11/01/22 11/28/22 Chely Fernandez PA-C [address] [place] [address] 983915 Assigned Surgical Provider 11/29/22 02/06/23 Jing Cadena APRN INTERLOCKING PAVEMENT INSTALLER 420 [facility] 450 [place], [place] 074485 Clinical Nurse Specialist Anesthesiology 01/15/23 JessicaRadha, [facility] [address] [place] [address] [phone] Pharmacist Pharmacist 01/16/23 Luis A Escobedo MD 420 [facility] 195 [place], [place] 093425 Assigned Surgical Provider 02/07/23 04/15/23 Geri Loza PA-C 909 [place], [place] 173095 Assigned Surgical Provider 04/16/23 Raina Patterson, GINA DIRECTOR PROCESS [address] [place], [place] 0[address]85 Nurse Practitioner Cardiovascular Disease 05/11/23 documented as of this encounter
--- OUTSIDE RECORDS SUMMARY | 2024-01-08 09:54 | XMS_ITS | Encounter Summary ---
Author Organization [facility] Address [address] [place] [address] Care Team Providers Care Mechanical System Technician Name Role Phone Barrington Agudelo PA-C Primary Care Provider + [phone] Magno Wood MD Unavailable [phone] [place] [facility] Provider Unavailable Parth Ellis MD Unavailable [phone] Tati Ayala MD Unavailable [phone] Khris Butt MD Unavailable [phone] MorelosRoderick nunes MD Unavailable [phone] Roderick Morelos MD Unavailable [phone] Magno Wood MD Unavailable [phone] Sophie Ocasio Unavailable +[phone] Parth Ellis MD Unavailable +[phone] MorelosRoderick nunes MD Unavailable [phone] Henny Rosales APRN STATISTICAL PROGRAMMER Unavailable [phone] [facility] Primary Care Pr ovider Sharee Oliva RD Unavailable Kaykay Duarte NP Primary Care Provider Christiane Rodríguez MD Unavailable [phone] Luis A Escobedo MD Unavailable + [phone] Chely Fernandez PA-C Unavailable [phone] Cadena Jing Susie FUENTES [facility] Unavailable + [phone] [facility] Unavailable +[phone] Luis A Escobedo MD Unavailable + [phone] Geri Loza PA-C Unavailable +[phone] Yesenia Raina F[facility]ENTES STATISTICAL PROGRAMMER Unavailable [phone] Encounter Details Date Type Department Care Team (Late st Contact Info) Description 05/07/2011 Office Visit-[facility] 6405 [facility] [address] [place] [address] Reji Li MD 6405 [facility] [address] [place] [address] Social History Tobacco Use Types [...] old Referring Physician: BARRINGTON LARA Referring Clinic: [facility] CURRENT DIAGNOSES 1. - Hypercholesterolemia, [...] was 89. ALT was 15. 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 Creatinine was [...] lives with and children; Place of - [place]; Hours Worked - 30 hours per week; [...] Rule Out COVID-19 03/19/2020 03/19/202003/19/2020 6:22 PM SONOGRAPHER COVID-19 03/19/2020 03/19/2020 04/09/2020 11:3 9 PM SONOGRAPHER Rule Out COVID-19 06/19/2021 06/19/2021 06/19/2021 1:37 AM CDT Rule Out COVID-19 10/29/2021 10/29/2021 10/29/2021 1:07 AM CDT documented as of this encounter Care Teams Mechanical System Technician Relationship Specialty Start Date End Date Barrington Agudelo PA-C [facility] [address] [place] [address] PCP - General 05/04/12 10/11/19 Ernestina Martini [address] [place] [address] [facility] 396 [place] [address] PCP - General Family Practice 10/12/19 08/18/22 [facility] [place] [address] [place] [address] PCP - General 08/19/22 10/14/22 Kaykay Duarte LEAD BLENDER [address] [place], [place] 294957 PCP - General 10/15/22 Magno Wood MD [address] 906415 Otolaryngology 05/29/15 08/02/17 Parth Ellis MD [address] [place] 578705 Assigned Heart and Vascular Provider 01/13/20 12/13/21 Tati Ayala MD [address] [place], [place] 411230 Assigned Endocrinology Provider 01/13/20 12/29/20 Khris Butt MD [address] [place] [address] [place] [address] Assigned Heart and Vascular Provider 12/14/21 02/14/22 Roderick Morelos MD [address] [place] [address] Cardiovascular Disease 02/03/22 Roderick Morelos MD [address] [place] [address] Assigned Heart and Vascular Provider 02/15/22 07/18/22 Magno Wood MD [address] [place] [address] Otolaryngology 02/21/22 Sophie Ocasio AuD [address] [place] [address] 441555 Assistant Womens Volleyball Coach Audiology 02/21/22 Parth Ellis MD [address] [place] [address] Assigned Heart and Vascular Provider 07/19/22 07/25/22 Roderick Morelos MD [address] [place] [address] Assigned Heart and Vascular Provider 07/26/22 08/08/22 Henny Rosales, VP LAB STATISTICAL PROGRAMMER [address] [place] [address] Assigned Heart and Vascular Provider 08/09/[address] [place], [place] 739025 Registered Dietitian Dietitian, Registered 09/02/22 Christiane Rodríguez MD 420 [facility] 396 [place], [place] 138295 Otolaryngology 11/12/22 Luis A Escobedo MD [address] [place] [address] 991655 Assigned Surgical Provider 11/01/22 11/28/22 Chely Fernandez PA-C [address] [place] [address] 798425 Assigned Surgical Provider 11/29/22 02/06/23 Jing Cadena, VP LAB NEW CAR DRIVER [address] [place] [address] 450 [place], [place] 979035 Clinical Nurse Specialist Anesthesiology 01/15/23 Radha Lopez, [facility] [address] [place] [address] 402565 Pharmacist Pharmacist 01/16/23 Luis A Escobedo MD [address] [place] [address] 350105 Assigned Surgical Provider 02/07/23 04/15/23 Geri Loza PA-C [address] [place] [address] Assigned Surgical Provider 04/16/23 Raina Patterson APRN STATISTICAL PROGRAMMER [address] [place] [address] Nurse Practitioner Cardiovascular Disease 05/11/23 documented as of this encounter
--- OUTSIDE RECORDS SUMMARY | 2024-01-08 09:54 | XMS_ITS | Encounter Summary ---
Author Organization [place] Address [address] [place] [address] Care Team Providers Care Tile Grinder Name Role Phone Roderick Morelos MD Unavailable [phone] Magno Wood MD Unavailable [phone] Sophie Ocasio Unavailable [phone] Henny Rosales CALCULATION CLERK ADOLESCENT PSYCHIATRIST Unavailable [phone] [facility] Primary Care Pr ovider Sharee Oliva RD Unavailable [phone] Kaykay Duarte ANCILLARY SERVICES MANAGER THERAPY Primary Care Provider [phone] Christiane Rodríguez MD Unavailable [phone] Luis A Escobedo MD Unavailable +[phone] Chely Fernandez PA-C Unavailable [phone] Jing Cadena APRN STAFF SONOGRAPHER Unavailable + [phone] Radha Lopez [facility] Unavailable [phone] Luis A Escobedo MD Unavailable +[phone] Geri LozaC Unavailable [phone] Raina Patterson CALCULATION CLERK ADOLESCENT PSYCHIATRIST Unavailable [phone] Encounter Details Date Type Department Care Team (Late st Contact Info) Description 08/19/[address] [facility] [address] [place] [address] Tanya Larsen RN Social History [...] on filedocumented in this encounter Care Teams Tile Grinder Relationship Specialty Start [place] [address] [place] [address] PCP - General 08/19/22 10/14/22 Kaykay Duarte ANCILLARY SERVICES MANAGER THERAPY [address] [place] [address] [facility] [address] PCP - General 10/15/22 Roderick Morelos MD [address] [place], [place] 393285 Cardiovascular Disease 02/03/22 Magno Wood MD [address] [place] [address] 396 [place], [place] 519035 Otolaryngology 02/21/22 Sophie Ocasio, AuD [address] [place] [address] Customer Solutions Coordinator Audiology 02/21/22 Henny Rosales, CALCULATION CLERK ADOLESCENT PSYCHIATRIST [address] [place] [address] Assigned Heart and Vascular Provider 08/09/[address] [place] [address] 743515 Registered Dietitian Dietitian, Registered 09/02/22 Christiane Rodríguez MD [address] [place] [address] 396 [place], [place] 869685 Otolaryngology 11/12/22 Luis A Escobedo MD [address] [place] [address] 195 [place], [place] 266115 Assigned Surgical Provider 11/01/22 11/28/22 Chely Fernandez PA-C [address] [place] [address] 937115 Assigned Surgical Provider 11/29/22 02/06/23 Jing Cadena, CALCULATION CLERK STAFF SONOGRAPHER 420 [facility] [facility] 450 [place], [place] 903375 Clinical Nurse Specialist Anesthesiology 01/15/23 Radha Lopez [facility] [address] [place] [address] 060745 Pharmacist Pharmacist 01/16/23 Luis A Escobedo MD [address] [place] [address] 195 [place] [address] Assigned Surgical Provider 02/07/23 04/15/23 Geri Loza PA-C 9 [place] [address] Assigned Surgical Provider 04/16/23 Raina Patterson APRN ADOLESCENT PSYCHIATRIST [address] [place] [address] Nurse Practitioner Cardiovascular Disease 05/11/23 documented as of this encounter
--- OUTSIDE RECORDS SUMMARY | 2024-01-08 09:54 | XMS_ITS | Encounter Summary ---
Author Organization [place] Address [address] [place] [address] Care Team Providers Care Shoe Salesperson Name Role Phone [facility] Primary Care Provider Unavailable Roderick Morelos MD Unavailable [phone] Roderick Morelos MD Unavailable [phone] Magno Wood MD Unavailable [phone] Sophie Ocasio AuD Unavailable +[phone] Parth Ellis MD Unavailable [phone] Roderick Morelos MD Unavailable [phone] Henny Rosales APRN STUMPER FELLER Unavailable [phone] [facility] Primary Care Pr ovider Sharee Oliva RD Unavailable [phone] Kaykay Duarte VISION TEACHER Primary Care Provider Christiane Rodríguez MD Unavailable + [phone] Luis A Escobedo MD Unavailable [phone] Chely Fernandez PA-C Unavailable +[phone] Jing Cadena QUARRY SUPERVISOR DIMENSION STONE MANAGER CARGO Unavailable [phone] Radha Lopez [facility] Unavailable [phone] Luis A Escobedo MD Unavailable Geri Loza PA-C Unavailable Raina Patterson APRN STUMPER FELLER Unavailable Encounter Details Date Type Department Care Team (Late st Contact Info) Description 05/26/2022 [facility] Medical Advice [facility] [address] 4th [place] [address] Jessi Mantilla LPN Social History [...] on filedocumented in this encounter Care Teams Shoe Salesperson Relationship Specialty Start Date End Date Ernestina Martini PCP - General Family Practice 10/12/19 08/18/22 [facility] [place] [place] [address] [place] [address] PCP - General 08/19/22 10/14/22 [place] [address] [place] [address] PCP - General 10/15/22 Roderick Morelos MD [address] [place] 178055 Cardiovascular Disease 02/03/22 Roderick Morelos MD [address] [place] [address] Assigned Heart and Vascular Provider 02/15/22 07/18/22 Magno Wood MD 420 [facility] 396 [place], [place] 225075 Otolaryngology 02/21/22 Sophie Ocasio AuD 909 [place], [place] 393745 Promotional Marketing Analyst Audiology 02/21/22 Parth [place] MD [address] [place], [place] 4[address] Assigned Heart and Vascular Provider 07/19/22 07/25/22 Roderick Morelos MD [address] [place] 950885 Assigned Heart and Vascular Provider 07/26/22 08/08/22 Henny Rosales, QUARRY SUPERVISOR DIMENSION STONE STUMPER FELLER [address] [place] [address] Assigned Heart and Vascular Provider 08/09/22 Sharee Oliva, ÁNGEL [address] [place] [address] 650525 Registered Dietitian Dietitian, Registered 09/02/22 Christiane Rodríguez MD 420 [facility] 396 [place], [place] 236825 Otolaryngology 11/12/22 Luis A Escobedo MD [address] [place] [address] 267765 Assigned Surgical Provider 11/01/22 11/28/22 Chely Fernandez PA-C 909 [place], [place] 418105 Assigned Surgical Provider 11/29/22 02/06/23 Jing Cadena APRN MANAGER CARGO 420 [facility] 450 [place] [address] Clinical Nurse Specialist Anesthesiology 01/15/23 Radha Lopez, [facility] 9 [place], [place] [address] Pharmacist Pharmacist 01/16/23 Luis A Escobedo MD 420 [facility] 195 [place], [place] [address] Assigned Surgical Provider 02/07/23 04/15/23 Geri Loza PA-C 909 [place], [place] 359475 Assigned Surgical Provider 04/16/23 Raina Patterson, GINA STUMPER FELLER [address] [place] 640795 Nurse Practitioner Cardiovascular Disease 05/11/23 documented as of this encounter
--- OUTSIDE RECORDS SUMMARY | 2024-01-08 09:54 | XMS_ITS | Encounter Summary ---
Author Organization [facility] Address [address] [place] [address]47 Care Team Providers Care Instructional Systems Specialist Name Role Phone Edda Agudelo PA-C Primary Care Provider + [phone] Magno Wood MD Unavailable [phone] [facility] Primary Care Provider Unavailable Parth Ellis MD Unavailable +[phone] Tati yAala MD Unavailable +[phone] Khris Butt MD Unavailable +[phone] MorelosRoderick nunes MD Unavailable +[phone] Roderick Morelos MD Unavailable +[phone] Magno Wood MD Unavailable +[phone] Sophie Ocasio Unavailable +[phone] Parth Ellis MD Unavailable +[phone] MorelosRoderick nunes MD Unavailable +[phone] Henny Rosales APRN MAINFRAME ANALYST Unavailable +[phone] [facility] Primary Care Pr ovider Sharee Oliva RD Unavailable [phone] Kaykay Duarte NP Primary Care Provider [phone] Christiane Rodríguez MD Unavailable +[phone] Luis A Escobedo MD Unavailable + [phone] Chely Fernandez PA-C Unavailable +[phone] Cadena Jing Susie [facility] Unavailable + [phone] Radha Lopez [facility] Unavailable +[phone] Luis A Escobedo MD Unavailable +[phone] [phone] Geri Gaytan PA-C Unavailable +[phone] Yesenia Raina [facility] Unavailable Encounter Details Date Type Department Care Team (Late st Contact Info) Description 02/10/2008 Office Visit-[facility] [address] [facility] [address] [place] [address] Reji Li MD [address] [facility] [address] [place] [address] Social History [...] Referring Physician: LUIS A WORRELL Referring Clinic: [facility] CURRENT DIAGNOSES 1. - Hypercholesterolemia, 272.0 [...] Out COVID-19 03/19/2020 03/19/2020 03/19/2020 6:22 PM AUDIO VISUAL FACILITIES ENGINEER COVID-19 03/19/2020 03/19/2020 04/09/2020 11:3 9 PM AUDIO VISUAL FACILITIES ENGINEER Rule Out COVID-19 06/19/2021 06/19/2021 06/19/2021 1:37 AM CDT Rule Out COVID-19 10/29/2021 10/29/2021 10/29/2021 1:07 AM CDT documented as of this encounter Care Teams Instructional Systems Specialist Relationship Specialty Start Date End Date Edda Agudelo PA-C [facility] [address] [address] PCP - General 05/04/12 10/11/19 Sheila Martiniville [address] [facility] 396 [place] [address] PCP - General Family Practice 10/12/19 08/18/22 [facility] Elvia Nugent [place] [address] [place], [place] 670947 PCP - General 08/19/22 10/14/22 Kaykay Duarte WRITER EDITOR [address] [place] [address] PCP - General 10/15/22 Magno Wood MD [address] [facility] 396 [place] [address] Otolaryngology 05/29/15 08/02/17 Parth Ellis MD [address] [place] [address] Assigned Heart and Vascular Provider 01/13/20 12/13/21 Tati Ayala MD [address] [place], [place] 184200 Assigned Endocrinology Provider 01/13/20 12/29/20 Khris Butt MD [address] [facility] [address] [place] [address] Assigned Heart and Vascular Provider 12/14/21 02/14/22 Roderick Morelos MD [address] [place] 488725 Cardiovascular Disease 02/03/22 Roderick Morelos MD [address] [place] 7[address]85 Assigned Heart and Vascular Provider 02/15/22 07/18/22 Magno Wood MD [address] [facility] 396 [place] [address] Otolaryngology 02/21/22 Sophie Ocasio AuD 909 [place] [address] Etched Circuit Processor Audiology 02/21/22 Parth Ellis MD [address] [place] 842915 Assigned Heart and Vascular Provider 07/19/22 07/25/22 Roderick Morelos MD [address] [place] 928035 Assigned Heart and Vascular Provider 07/26/22 08/08/22 Henny Rosales APRN MAINFRAME ANALYST [address] [place] [address] Assigned Heart and Vascular Provider 08/09/[address] [place], [place] 479565 Registered Dietitian Dietitian, Registered 09/02/22 Christiane Rodríguez MD [address] [facility] 396 [place] [address] Otolaryngology 11/12/22 Luis A Escobedo MD [address] [facility] 195 [place] [address] Assigned Surgical Provider 11/01/22 11/28/22 Chely Fernandez PA-C 909 [place] [address] Assigned Surgical Provider 11/29/22 02/06/23 Jing Cadena, MOLDING LINE OPERATOR REPORTING DEVELOPER [address] [facility] 450 [place] [address] Clinical Nurse Specialist Anesthesiology 01/15/23 Radha Lopez, [facility] [address] [place] [address] [phone] Pharmacist Pharmacist 01/16/23 Luis A Escobedo MD [address] [place] [address] 195 [place], [place] 509435 Assigned Surgical Provider 02/07/23 04/15/23 Geri Loza PA-C [address] [place] [address] 014885 Assigned Surgical Provider 04/16/23 Raina Patterson APRN MAINFRAME ANALYST [address] [place] 111405 Nurse Practitioner Cardiovascular Disease 05/11/23 documented as of this encounter
--- OUTSIDE RECORDS SUMMARY | 2024-01-08 09:54 | XMS_ITS | Encounter Summary ---
Author Organization [facility] Address [address] [place] [address] Care Team Providers Care Pet Food Deboner Name Role Phone Roderick Morelos MD Unavailable [phone] Magno Wood MD Unavailable [phone] Sophie Ocasio Unavailable +[phone] Henny Rosales TAILER OUT INVENTORY AUDITOR Unavailable +[phone] [facility] Primary Care Pr ovider Sharee Oliva RD Unavailable [phone] Kaykay Duarte DIRECTOR ON AIR Primary Care Provider [phone] Christiane Rodríguez MD Unavailable [phone] Luis A Escobedo MD Unavailable +[phone] Chely Fernandez PA-C Unavailable [phone] Jing Cadena APRN RF DESIGN ENGINEER Unavailable + [phone] Radha Lopez [facility] Unavailable +[phone] Luis A Escobedo MD Unavailable +[phone] Geri LozaC Unavailable [phone] Raina Patterson TAILER OUT INVENTORY AUDITOR Unavailable +[phone] Encounter Details Date Type Department Care Team (Late st Contact Info) Description 08/25/2022 Telephone [facility] [address] [place] [address] Geri Loza PA-C 9 [place] [address] Social History Tobacco Use Types Packs/Day Years [...] on filedocumented in this encounter Care Teams Pet Food Deboner Relationship Specialty Start Date End Date Clinic, Elvia Nugent [place] [address] [place], [place] 937737 PCP - General 08/19/22 10/14/22 Kaykay Duarte, DIRECTOR ON AIR [address] [place] [place] [address] PCP - General 10/15/22 Roderick Morelos MD [address] [place], [place] 6[address]85 Cardiovascular Disease 02/03/22 Magno Wood MD [address] [place] [address] 396 [place] [address] Otolaryngology 02/21/22 Sophie Ocasio AuD 909 [place], [place] 363715 Metal Inspector Audiology 02/21/22 Henny Rosales APRN INVENTORY AUDITOR [address] [place] [address] Assigned Heart and Vascular Provider 08/09/[address]09 [place], [place] 378075 Registered Dietitian Dietitian, Registered 09/02/22 Christiane Rodríguez MD [address] [place] [address] 396 [place] [address] Otolaryngology 11/12/22 Luis A Escobedo MD [address] [place] [address] 195 [place], [place] 941295 Assigned Surgical Provider 11/01/22 11/28/22 Chely Fernandez PA-C 909 [place], [place] 814465 Assigned Surgical Provider 11/29/22 02/06/23 Jing Cadena APRN RF DESIGN ENGINEER 420 [facility] 450 [place] [address] Clinical Nurse Specialist Anesthesiology 01/15/23 Radha Lopez, [facility] [address] [place] [address] 284405 Pharmacist Pharmacist 01/16/23 Luis A Escobedo MD 420 [facility] 195 [place], [place] 707905 Assigned Surgical Provider 02/07/23 04/15/23 Geri Loza PA-C [address] [place] [address] 457075 Assigned Surgical Provider 04/16/23 Raina Patterson APRN INVENTORY AUDITOR [address] [place] 4[address]65 Nurse Practitioner Cardiovascular Disease 05/11/23 documented as of this encounter
--- OUTSIDE RECORDS SUMMARY | 2024-01-08 09:54 | XMS_ITS | Encounter Summary ---
Author Organization [facility] Address [address] [place] [address] Care Team Providers Care Water Quality Analyst Name Role Phone [facility] Primary Care Provider Unavailable Roderick Morelos MD Unavailable [phone] Roderick Morelos MD Unavailable [phone] Magno Wood MD Unavailable [phone] Sophie Ocasio AuD Unavailable +[phone] Parth Ellis MD Unavailable [phone] Roderick Morelos MD Unavailable [phone] Henny Rosales APRN HIDE TRIMMER Unavailable [phone] [facility] Primary Care Pr ovider Sharee Oilva RD Unavailable [phone] Kaykay Duarte CSW Primary Care Provider Christiane Rodríguez MD Unavailable [phone] Luis A Escobedo MD Unavailable +[phone] Chely Fernandez PA-C Unavailable +[phone] Jing Cadena PATCHING MACHINE OPERATOR BUSINESS MANAGEMENT MANAGER Unavailable [phone] Radha Lopez [facility] Unavailable [phone] Luis A Escobedo MD Unavailable Geri Loza PA-C Unavailable [phone] Raina Patterson APRN HIDE TRIMMER Unavailable Encounter Details Date Type Department Care Team (Late st Contact Info) Description 05/14/2022 [facility] Medical Advice [facility] [address] 4th [place] [address] Jessi Mantilla LPN Social History [...] on filedocumented in this encounter Care Teams Water Quality Analyst Relationship Specialty Start Date End Date Ernestina Martini PCP - General Family Practice 10/12/19 08/18/22 [facility] [place] [address] [place] [address] PCP - General 08/19/22 10/14/22 [place] [address] [place] [address] PCP - General 10/15/22 Roderick Morelos MD [address] [place] [address] Cardiovascular Disease 02/03/22 Roderick Morelos MD [address] [place] [address] Assigned Heart and Vascular Provider 02/15/22 07/18/22 Magno Wood MD 420 [facility] 396 [place], [place] 406815 Otolaryngology 02/21/22 Sophie Ocasio AuD 909 [place], [place] 459055 Customer Loyalty Representative Audiology 02/21/22 Parth Ellis MD [address] [place], [place] 406205 Assigned Heart and Vascular Provider 07/19/22 07/25/22 Rdoerick Morelos MD [address] [place] 482965 Assigned Heart and Vascular Provider 07/26/22 08/08/22 Henny Rosales, PATCHING MACHINE OPERATOR HIDE TRIMMER [address] [place] [address] Assigned Heart and Vascular Provider 08/09/22 Sharee Oliva, ÁNGEL [address] [place] [address] 134985 Registered Dietitian Dietitian, Registered 09/02/22 Christiane Rodríguez MD 420 [facility] 396 [place], [place] 783545 Otolaryngology 11/12/22 Luis A Escobedo MD [address] [place] [address] 271785 Assigned Surgical Provider 11/01/22 11/28/22 Chely Fernandez PA-C 909 [place], [place] 402325 Assigned Surgical Provider 11/29/22 02/06/23 Jing Cadena APRN BUSINESS MANAGEMENT MANAGER 420 [facility] 450 [place] [address] Clinical Nurse Specialist Anesthesiology 01/15/23 Radha Lopez, [facility] 9 [place], [place] 030935 Pharmacist Pharmacist 01/16/23 Luis A Escobedo MD 420 [facility] 195 [place], [place] 0[address]365 Assigned Surgical Provider 02/07/23 04/15/23 Geri Loza PA-C 909 [place], [place] 888735 Assigned Surgical Provider 04/16/23 Raina Patterson, GINA HIDE TRIMMER [address] [place] 714285 Nurse Practitioner Cardiovascular Disease 05/11/23 documented as of this encounter
--- OUTSIDE RECORDS SUMMARY | 2024-01-08 09:54 | XMS_ITS | Encounter Summary ---
Author Organization [facility] Address [address] [place] [address]29 Care Team Providers Care Industrial Training Specialist Name Role Phone Edda Agudelo PA-C Primary Care Provider + [phone] Magno Wood MD Unavailable [phone] [facility] Primary Care Provider Unavailable Parth Ellis MD Unavailable +[phone] Tati Ayala MD Unavailable +[phone] Khris Butt MD Unavailable +[phone] MorelosRoderick nunes MD Unavailable [phone] Roderick Morelos MD Unavailable [phone] Magno Wood MD Unavailable [phone] Sophie Ocasio Unavailable +[phone] Parth Ellis MD Unavailable +[phone] MorelosRoderick nunes MD Unavailable Henny Rosales APRN MEDICAL FACILITIES SECTION DIRECTOR Unavailable [phone] [facility] Primary Care Pr ovider Sharee Oliva RD Unavailable [phone] Kaykay Duarte NP Primary Care Provider Christiane Rodríguez MD Unavailable +[phone] Luis A Escobedo MD Unavailable + [phone] Chely Fernandez PA-C Unavailable [phone] Jing Cadena [facility] REHABILITATION [facility] AIRPORT ELECTRICIAN Unavailable + [phone] Radha Lopez [facility] Unavailable [phone] Luis A Escobedo MD Unavailable + [phone] Geri Loza PA-C Unavailable +[phone] Raina Patterson [facility] MEDICAL FACILITIES SECTION DIRECTOR Unavailable Encounter Details Date Type Department Care Team (Late st Contact Info) Description 03/31/2006 Office Visit-[facility] [address] [facility] [address] [place] [address] Imani Ott, CLINICAL REHABILITATION [facility] MEDICAL FACILITIES SECTION DIRECTOR 6[address] [facility] [address] [place] 0[address]505 Social History Tobacco Use Types Packs/Day Years [...] old Referring Physician: BOY WATSON Referring Clinic: [facility] CURRENT DIAGNOSES 1. - Hypercholesterolemia, [...] delightful 35-year-old female who presents to the [facility] today for a follow-up visit [...] Half-Brother - [place]; Sister 1 - [place]; <FONT COLOR=#[id number]><FONT POINT=10>CARDIAC RISK FACTORS Tobacco Abuse: negative; Family [...] lives with and children; Place of - [place]; Hours Worked - 30 hours per week; [...] Out COVID-19 03/19/2020 03/19/2020 03/19/2020 6:[address] COVID-19 03/19/2020 03/19/2020 04/09/2020 11:[address] Rule Out COVID-19 06/19/2021 06/19/2021 06/19/2021 1:37 AM CDT Rule Out COVID-19 10/29/2021 10/29/2021 10/29/2021 1:07 AM CDT documented as of this encounter Care Teams Industrial Training Specialist Relationship Specialty Start Date End Date Edda Agudelo PA-C [facility] [address] [place] [address] PCP - General 05/04/12 10/11/19 Ernestina Martini [address] [place] [address] [facility] 396 [place] [address] PCP - General Family Practice 10/12/19 08/18/22 [facility] [address] [place], [place] [address]207 PCP - General 08/19/22 10/14/22 [place] [address] [place] [address] PCP - General 10/15/22 Magno Wood MD [address] 371045 Otolaryngology 05/29/15 08/02/17 Parth Ellis MD [address] [place] [address] Assigned Heart and Vascular Provider 01/13/20 12/13/21 Tati Ayala MD [address] [place], [place] 80[address]90 Assigned Endocrinology Provider 01/13/20 12/29/20 Khris Butt MD [address] [facility] [address] [place] [address] Assigned Heart and Vascular Provider 12/14/21 02/14/22 Roderick Morelos MD [address] [facility] [place] [address]85 Cardiovascular Disease 02/03/22 Roderick Morelos MD [address] [facility] [place] [address] Assigned Heart and Vascular Provider 02/15/22 07/18/22 Magno Wood MD [address] [place] [address] Otolaryngology 02/21/22 Sophie Ocasio AuD [address] [place] [address] 779325 Asphalt Still Operator Audiology 02/21/22 Parth Ellis MD [address] 747865 Assigned Heart and Vascular Provider 07/19/22 07/25/22 Roderick Morelos MD [address] [address] Assigned Heart and Vascular Provider 07/26/22 08/08/22 Henny Rosales APRN MEDICAL FACILITIES SECTION DIRECTOR [address] [facility] [place] [address] Assigned Heart and Vascular Provider 08/09/[address] [place] [address] 473485 Registered Dietitian Dietitian, Registered 09/02/22 Christiane Rodríguez MD [address] [place] [address] 396 [place], [place] 843035 Otolaryngology 11/12/22 Luis A Escobedo MD [address] [place] [address] 236565 Assigned Surgical Provider 11/01/22 11/28/22 Chely Fernandez PA-C [address] [place] [address] 556295 Assigned Surgical Provider 11/29/22 02/06/23 Jing Cadena, CLINICAL REHABILITATION [place] AIRPORT ELECTRICIAN [address] [place] [address] 450 [place], [place] 333385 Clinical Nurse Specialist Anesthesiology 01/15/23 Radha Lopez, [facility] [address] [place] [address] 144445 Pharmacist Pharmacist 01/16/23 Luis A Escobedo MD [address] [place] [address] 785995 Assigned Surgical Provider 02/07/23 04/15/23 Geri Loza PA-C [address] [place] [address] 898865 Assigned Surgical Provider 04/16/23 Raina Patterson, [facility] MEDICAL FACILITIES SECTION DIRECTOR [address] [facility] [address] [place] [address] 229005 Nurse Practitioner Cardiovascular Disease 05/11/23 documented as of this encounter
--- OUTSIDE RECORDS SUMMARY | 2024-01-08 09:54 | XMS_ITS | Encounter Summary ---
Author Organization [facility] Address [address] [place] [address] Care Team Providers Care Back Hoe Operator Name Role Phone Elvia Nugent [place] Primary Care Provider Unavailable Parth Ellis MD Unavailable [phone] Tati Ayala MD Unavailable [phone] Khris Butt MD Unavailable [phone] MorelosRoderick nunes MD Unavailable [phone] Roderick Morelos MD Unavailable [phone] Magno Wood MD Unavailable [phone] Sophie Ocasio Unavailable +[phone] Parth Ellis MD Unavailable +[phone] Roderick Morelos MD Unavailable [phone] Henny Rosales APRN CUSTOMER ACCOUNT REPRESENTATIVE Unavailable +[phone] [facility] Jovanna [place] Primary Care Pr ovider Sharee Oliva RD Unavailable [phone] Kaykay Duarte PC INSTALLATION ENGINEER Primary Care Provider Christiane Rodríguez MD Unavailable +[phone] Luis A Escobedo MD Unavailable +[phone] Chely Fernandez PA-C Unavailable CadenaJing jacob Susie MARKET RESEARCH ASSISTANT ORGAN FIXER Unavailable [phone] Radha Lopez Estuardo [facility] Unavailable Luis A Escobedo MD Unavailable SevenGeri klein Lucila BALDERASC Unavailable Raina Patterson MARKET RESEARCH ASSISTANT CUSTOMER ACCOUNT REPRESENTATIVE Unavailable [phone] Encounter Details Date Type Department Care Team [...] documented as of this encounter Care Teams Back Hoe Operator Relationship Specialty Start Date End Date Ernestina Martini PCP - General Family Practice 10/12/19 08/18/22 [facility] [address] [place], [place] [address]27 PCP - General 08/19/22 10/14/22 [place] [address] [place] [address] PCP - General 10/15/22 Parth Ellis MD [address] [place] 370505 Assigned Heart and Vascular Provider 01/13/20 12/13/21 Tati Ayala MD [address] [place], [place] 5[address] Assigned Endocrinology Provider 01/13/20 12/29/20 Khris Butt MD [address] [facility] [address] [place] [address] Assigned Heart and Vascular Provider 12/14/21 02/14/22 Roderick Morelos MD [address] [place] [address] Cardiovascular Disease 02/03/22 Roderick Morelos MD [address] [place] [address] Assigned Heart and Vascular Provider 02/15/22 07/18/22 Magno Wood MD [address] [place] [address] 896805 Otolaryngology 02/21/22 Sophie Ocasio AuD [address] [place] [address] 579185 Director Perioperative Audiology 02/21/22 Parth Ellis MD [address] 497435 Assigned Heart and Vascular Provider 07/19/22 07/25/22 Roderick Morelos MD [address] [place] [address] Assigned Heart and Vascular Provider 07/26/22 08/08/22 Henny Rosales APRN CUSTOMER ACCOUNT REPRESENTATIVE [address] [place] [address] Assigned Heart and Vascular Provider 08/09/[address] 9 [place], [place] 674215 Registered Dietitian Dietitian, Registered 09/02/22 Christiane Rodríguez MD [address] [place] [address] 396 [place], [place] 757725 Otolaryngology 11/12/22 Luis A Escobedo MD [address] [place] [address] 195 [place], [place] 666415 Assigned Surgical Provider 11/01/22 11/28/22 Chely Fernandez PA-C [address] [place] [address] 659885 Assigned Surgical Provider 11/29/22 02/06/23 Jing Cadena APRN ORGAN FIXER [address] [place] [address] 450 [place], [place] 428765 Clinical Nurse Specialist Anesthesiology 01/15/23 Radha Lopez, [facility] [address] [place] [address] Pharmacist Pharmacist 01/16/23 Luis A Escobedo MD [address] [place] [address] 195 [place] [address] Assigned Surgical Provider 02/07/23 04/15/23 Geri Loza PA-C [address] [place] [address] Assigned Surgical Provider 04/16/23 Raina Patterson APRN [facility] [address] [place] [address] Nurse Practitioner Cardiovascular Disease 05/11/23 documented as of this encounter
--- OUTSIDE RECORDS SUMMARY | 2024-01-08 09:54 | XMS_ITS | Encounter Summary ---
Author Organization [facility] Address [address] [place] [address] Care Team Providers Care Highway Research Engineer Name Role Phone Edda Agudelo PA-C Primary Care Provider + [phone] Magno Wood MD Unavailable [phone] [facility] Primary Care Provider Unavailable Parth Ellis MD Unavailable +[phone] Tati Ayala MD Unavailable +[phone] Khris Butt MD Unavailable +[phone] MorelosRoderick nunes MD Unavailable +[phone] Roderick Morelos MD Unavailable +[phone] Magno Wood MD Unavailable [phone] Sophie Ocasio Unavailable +[phone] Parth Ellis MD Unavailable +[phone] MorelosRoderick nunes MD Unavailable +[phone] Henny Rosales APRN RN UROLOGY Unavailable [phone] [facility] Primary Care Pr ovider Sharee Oliva RD Unavailable +[phone] Kaykay Duarte NP Primary Care Provider Christiane Rodríguez MD Unavailable +[phone] Luis A Escobedo MD Unavailable + [phone] Chely Fernandez PA-C Unavailable +[phone] Cadena Jing Susie [facility]ES [facility] Unavailable + [phone] Radha Lopez [facility] Unavailable [phone] Luis A Escobedo MD Unavailable +[phone] Dago Geri Gaytan PA-C Unavailable +[phone] Yesenia Raina FUENTES [facility] Unavailable Encounter Details Date Type Department Care Team (Late st Contact Info) Description 02/08/2007 Office Visit-[facility] Heart [facility] [address] [facility] [address] [place] [address] Reji Li MD [address] [facility] [address] [place] [address] Social History Tobacco Use Types [...] valve 2. F/U with Imani Ott, MSN, RN UROLOGY 3 months Reji Li M.D. documented in this encounter Plan of Treatment Not on file documented as of this encounter Visit Diagnoses Not on filedocumented in this encounter Additional Health Concerns Infection Onset Date Last Indicated Resolved Time Rule Out COVID-19 03/19/2020 03/19/2020 03/19/2020 6:22 PM FORENSIC SCIENCE EXAMINER COVID-19 03/19/2020 03/19/2020 04/09/2020 11:3 9 PM FORENSIC SCIENCE EXAMINER Rule Out COVID-19 06/19/2021 06/19/2021 06/19/2021 1:37 AM CDT Rule Out COVID-19 10/29/2021 10/29/2021 10/29/2021 1:07 AM CDT documented as of this encounter Care Teams Highway Research Engineer Relationship Specialty Start Date End Date Edda Agudelo PA-C [place] [id number] [address] [place] [address] [id number] PCP - General 05/04/12 10/11/19 Ernestina Martini [address] [facility] 396 [place] [address] PCP - General Family Practice 10/12/19 08/18/22 [facility] [address] [place], [place] [id number] PCP - General 08/19/22 10/14/22 Kaykay Duarte, SERVICE TECH/WELDER [address] [place] [address] PCP - General 10/15/22 Magno Wood MD [address] [facility] 396 [place] [address] Otolaryngology 05/29/15 08/02/17 Parth Ellis MD [address] [place] [address] Assigned Heart and Vascular Provider 01/13/20 12/13/21 Tati Ayala MD [address] [facility] 200 [place], [place] 449360 Assigned Endocrinology Provider 01/13/20 12/29/20 Khris Butt MD [address] [place] [address] [place] [address] Assigned Heart and Vascular Provider 12/14/21 02/14/22 Roderick Morelos MD [address] [place] [address] Cardiovascular Disease 02/03/22 Roderick Morelos MD [address] [place] [address] Assigned Heart and Vascular Provider 02/15/22 07/18/22 Magno Wood MD [address] [facility] 396 [place] [address] Otolaryngology 02/21/22 Sophie Ocasio AuD 9 [place], [place] 153145 Gas Turbine Powerplant Mechanic Helper Audiology 02/21/22 Parth Ellis MD [address] [place], [place] 855065 Assigned Heart and Vascular Provider 07/19/22 07/25/22 Roderick Morelos MD [address] [place], [place] 784845 Assigned Heart and Vascular Provider 07/26/22 08/08/22 Henny Rosales APRN RN UROLOGY [address] [place] [address] Assigned Heart and Vascular Provider 08/09/[address] [place] [address] [id number] Registered Dietitian Dietitian, Registered 09/02/22 Christiane Rodríguez MD [address] [place] [address] 396 [place] [address] Otolaryngology 11/12/22 Luis A Escobedo MD [address] [place] [address] 195 [place] [address] Assigned Surgical Provider 11/01/22 11/28/22 Chely Fernandez PA-C [address] [place] [address] 609985 Assigned Surgical Provider 11/29/22 02/06/23 Jing Cadena APRN TRANSFORMER ASSEMBLER [address] [facility] 450 [place] [address] Clinical Nurse Specialist Anesthesiology 01/15/23 Radha Lopez [facility] 909 [place], [place] 260635 Pharmacist Pharmacist 01/16/23 Luis A Escobedo MD 420 [facility] 195 [place], [place] 047115 Assigned Surgical Provider 02/07/23 04/15/23 Geri Loza PA-C [address] [place] [address] 058945 Assigned Surgical Provider 04/16/23 Raina Patterson APRN RN UROLOGY [address] [place], [place] 815565 Nurse Practitioner Cardiovascular Disease 05/11/23 documented as of this encounter
--- OUTSIDE RECORDS SUMMARY | 2024-01-08 09:54 | XMS_ITS | Encounter Summary ---
Author Organization [facility] Address [address] [place] [address] Care Team Providers Care Body And Fender Worker Name Role Phone Edda Agudelo PA-C Primary Care Provider + [phone] Magno Wood MD Unavailable [phone] [facility] Primary Care Provider Unavailable Parth Ellis MD Unavailable +[phone] Tati Ayala MD Unavailable +[phone] Khris Butt MD Unavailable +[phone] MorelosRoderick nunes MD Unavailable +[phone] Roderick Morelos MD Unavailable [phone] Magno Wood MD Unavailable [phone] Sophie Ocasio Unavailable +[phone] Parth Ellis MD Unavailable +[phone] MorelosRoderick nunes MD Unavailable [phone] Henny Rosales APRN COMMUNICATIONS SUPERVISOR Unavailable [phone] [facility] Primary Care Pr ovider Sharee Oliva RD Unavailable +[phone] Kaykay Duarte NP Primary Care Provider Christiane Rodríguez MD Unavailable +[phone] Luis A Escobedo MD Unavailable + [phone] Chely Fernandez PA-C Unavailable +[phone] Cadena Jing Susie FUENTES OPEN SHANK COVERER Unavailable + [phone] [facility] [facility] Unavailable [phone] Luis A Escobedo MD Unavailable + [phone] Dago Geri Gaytan PA-C Unavailable +[phone] Raina Patterson GINA COMMUNICATIONS SUPERVISOR Unavailable [phone] Encounter Details Date Type Department Care Team (Late st Contact Info) Description 06/13/2009 Office Visit-[facility] Heart [address] [place] [phone] Lauri Canada APRN CNP NO INFO AVAILABLE [...] Referring Physician: LUIS A WORRELL Referring Clinic: [facility] CURRENT DIAGNOSES 1. 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 Lipid profile/ALT 3 months Lauri Canada, N.P. documented in this encounter Plan of Treatment Not on file documented as of this encounter Visit Diagnoses Not on filedocumented in this encounter Additional Health Concerns Infection Onset Date Last Indicated Resolved Time Rule Out COVID-19 03/19/2020 03/19/2020 03/19/2020 6:22 PM MARKER MACHINE ATTENDANT COVID-19 03/19/2020 03/19/2020 04/09/2020 11:3 9 PM MARKER MACHINE ATTENDANT Rule Out COVID-19 06/19/2021 06/19/2021 06/19/2021 1:37 AM CDT Rule Out COVID-19 10/29/2021 10/29/2021 10/29/2021 1:07 AM CDT documented as of this encounter Care Teams Body And Fender Worker Relationship Specialty Start Date End Date Edda Agudelo PA-C [facility] [address] [place] [address] PCP - General 05/04/12 10/11/19 Ernestina Martini 420 [facility] 396 [place] [address] PCP - General Family Practice 10/12/19 08/18/22 [facility] [address] [place] [address] PCP - General 08/19/22 10/14/22 Kaykay Duarte, PLANT RELIABILITY ENGINEER [address] [place] [address] PCP - General 10/15/22 Magno Wood MD [address] [facility] 396 [place] [address] Otolaryngology 05/29/15 08/02/17 Parth Ellis MD [address] [place] [address] Assigned Heart and Vascular Provider 01/13/20 12/13/21 Tati Ayala MD [address] [place] 200 [place] [address] Assigned Endocrinology Provider 01/13/20 12/29/20 Khris Butt MD [address] [place] [address] [place] [address] Assigned Heart and Vascular Provider 12/14/21 02/14/22 Roderick Morelos MD [address] [place] [address] Cardiovascular Disease 02/03/22 Roderick Morelos MD [address] [place] 211955 Assigned Heart and Vascular Provider 02/15/22 07/18/22 Magno Wood MD [address] [place] [address] 611625 Otolaryngology 02/21/22 Sophie Ocasio AuD 909 [place], [place] 492915 Heavy Cleaner Audiology 02/21/22 Parth Ellis MD [address] [place] [address] Assigned Heart and Vascular Provider 07/19/22 07/25/22 Roderick Morelos MD [address] [place] [address] Assigned Heart and Vascular Provider 07/26/22 08/08/22 Henny Rosales APRN COMMUNICATIONS SUPERVISOR [address] [place] [phone] Assigned Heart and Vascular Provider 08/09/[address] [place] [address] 326135 Registered Dietitian Dietitian, Registered 09/02/22 Christiane Rodríguez MD [address] [place] [address] 396 [place], [place] 895045 Otolaryngology 11/12/22 Luis A Escobedo MD [address] [place] [address] 144045 Assigned Surgical Provider 11/01/22 11/28/22 Chely Fernandez PA-C [address] [place] [address] 523005 Assigned Surgical Provider 11/29/22 02/06/23 Jing Cadena APRN [facility] [address] [place] [address] 450 [place], [place] 384955 Clinical Nurse Specialist Anesthesiology 01/15/[address] [facility] [address] [place] [address] 169055 Pharmacist Pharmacist 01/16/23 Luis A Escobedo MD [address] [place] [address] 371385 Assigned Surgical Provider 02/07/23 04/15/23 Geri Loza PA-C [address] [place] [address] 261955 Assigned Surgical Provider 04/16/23 Raina Patterson APRN [facility] [address] [place] [address] Nurse Practitioner Cardiovascular Disease 05/11/23 documented as of this encounter
--- OUTSIDE RECORDS SUMMARY | 2024-01-08 09:54 | XMS_ITS | Encounter Summary ---
Author Organization [facility] Address [address] [place] [address] Care Team Providers Care Equipment Inspector Name Role Phone [facility] Primary Care Provider Unavailable Roderick Morelos MD Unavailable [phone] Roderick Morelos MD Unavailable [phone] Magno Wood MD Unavailable Sophie Ocasio AuD Unavailable +[phone] Parth Ellis MD Unavailable +[phone] Roderick Morelos MD Unavailable [phone] Henny Rosales APRN COAL CRUSHER OPERATOR Unavailable [phone] [facility] Primary Care Pr ovider Sharee Oliva RD Unavailable Kaykay Duarte PATTERNMAKER GRADER Primary Care Provider Christiane Rodríguez MD Unavailable + [phone] Luis A Escobedo MD Unavailable [phone] Chely Fernandez PA-C Unavailable +[phone] Jing Cadena ROUNDER AND BACKER MAINTENANCE WELDER Unavailable [phone] Radha Lopez [facility] Unavailable [phone] Luis A Escobedo MD Unavailable Grei Loza PA-C Unavailable [phone] Raina Patterson APRN COAL CRUSHER OPERATOR Unavailable [phone] Encounter Details Date Type Department Care Team (Late st Contact Info) Description 04/08/2022 [facility] Medical Advice [facility] [place] [address] [facility] [address] [place] [phone] Suha Wade, RN Social History Tobacco Use [...] Coronavirus/COVID-19? No / Unsure 04/09/2022 6:32 AM PACKAGING MACHINE SUPPLIES DISTRIBUTOR documented as of this encounter Plan of Treatment Not on file documented as of this encounter Visit Diagnoses Not on filedocumented in this encounter Care Teams Equipment Inspector Relationship Specialty Start Date End Date Ernestina Martini PCP - General Family Practice 10/12/19 08/18/22 [facility] [place] [address] [place] [address] PCP - General 08/19/22 10/14/22 [place] [address] [place] [address] PCP - General 10/15/22 Roderick Morelos MD [address] [place] [address] Cardiovascular Disease 02/03/22 Roderick Morelos MD [address] [place] [address] Assigned Heart and Vascular Provider 02/15/22 07/18/22 Magno Wood MD [address] [place] [address] 060075 Otolaryngology 02/21/22 Sophie Ocasio AuD 9 [place], [place] 235595 High Lift Operator Audiology 02/21/22 Parth Ellis MD [address] [place] 115885 Assigned Heart and Vascular Provider 07/19/22 07/25/22 Roderick Morelos MD [address] [place] [address] Assigned Heart and Vascular Provider 07/26/22 08/08/22 Henny Rosales, ROUNDER AND BACKER COAL CRUSHER OPERATOR [address] [place] [phone] Assigned Heart and Vascular Provider 08/09/22 Sharee Oliva, RD [address] [place] [address] 025605 Registered Dietitian Dietitian, Registered 09/02/22 Christiane Rodríguez MD [address] [place] [address] 870885 Otolaryngology 11/12/22 Luis A Escobdeo MD [address] [address] Assigned Surgical Provider 11/01/22 11/28/22 Chely Fernandez PA-C 909 [place], [place] 302915 Assigned Surgical Provider 11/29/22 02/06/23 Jing Cadena APRN MAINTENANCE WELDER [address] 767505 Clinical Nurse Specialist Anesthesiology 01/15/23 Radha Lopez, [facility] [address] [place] [address] 060395 Pharmacist Pharmacist 01/16/23 Luis A Escobedo MD [address] [address] Assigned Surgical Provider 02/07/23 04/15/23 Geri Loza PA-C 909 [place] [address] Assigned Surgical Provider 04/16/23 Raina Patterson APRN COAL CRUSHER OPERATOR [address] [place] 5[address]235 Nurse Practitioner Cardiovascular Disease 05/11/23 documented as of this encounter
--- OUTSIDE RECORDS SUMMARY | 2024-01-08 09:54 | XMS_ITS | Encounter Summary ---
Author Organization [facility] [place] Address [address] [place] [address] Care Team Providers Care Hcc Coders Name Role Phone Roderick Morelos MD Unavailable [phone] Magno Wood MD Unavailable [phone] Sophie Ocasio Unavailable +[phone] Henny Rosales GLASSWARE ENGRAVER CERTIFIED ADAPTED PHYSICAL EDUCATOR Unavailable +[phone] [facility] Primary Care Pr ovider Sharee Oliva RD Unavailable [phone] Kaykay Duarte LABORER CUTTING TOOL Primary Care Provider [phone] Christiane Rodríguez MD Unavailable [phone] Luis A Escobedo MD Unavailable +[phone] Chely Fernandez PA-C Unavailable [phone] Jing Cadena APRN PUBLIC AFFAIRS DIRECTOR Unavailable + [phone] Radha Lopez [facility] Unavailable +[phone] Luis A Escobedo MD Unavailable +[phone] Geri LozaC Unavailable [phone] Raina Patterson GLASSWARE ENGRAVER CERTIFIED ADAPTED PHYSICAL EDUCATOR Unavailable +[phone] Encounter Details Date Type Department Care Team (Late st Contact Info) Description 08/19/2022 Telephone [facility] [place] [address] [place] [address] 4th [place] [address] Geri Loza PA-C 909 [place] [address] Social History Tobacco Use Types Packs/Day Years [...] her insurance won't pay for them at [facility] and she needs the lab orders sent to [facility] in [place]. Please send myc msg to pt once lab orders sent. documented in this encounter Plan of Treatment Not on file documented as of this encounter Visit Diagnoses Not on filedocumented in this encounter Care Teams Hcc Coders Relationship Specialty Start Date End [place] [address] [place], [place] 296547 PCP - General 08/19/22 10/14/22 [place] [address] [place] [address] PCP - General 10/15/22 Roderick Morelos MD [address] [place] [address] Cardiovascular Disease 02/03/22 Magno Wood MD 420 [facility] 396 [place] [address] Otolaryngology 02/21/22 Sophie Ocasio AuD [address] [place] [address] 500965 C D Stripper Audiology 02/21/22 Henny Rosales APRN CERTIFIED ADAPTED PHYSICAL EDUCATOR [address] [place] [address] Assigned Heart and Vascular Provider 08/09/[address] [place] [address] 250345 Registered Dietitian Dietitian, Registered 09/02/22 Christiane Rodríguez MD [address] [place] [address] 917725 Otolaryngology 11/12/22 Luis A Escobedo MD [address] [place] [address] 374805 Assigned Surgical Provider 11/01/22 11/28/22 Chely Fernandez PA-C [address] [place] [address] 209815 Assigned Surgical Provider 11/29/22 02/06/23 Jing Cadena APRN PUBLIC AFFAIRS DIRECTOR 420 [facility] 450 [place], [place] 721555 Clinical Nurse Specialist Anesthesiology 01/15/23 Radha Lopez, [facility] 909 [place], [place] 501855 Pharmacist Pharmacist 01/16/23 Luis A Escobedo MD 420 [facility] 195 [place], [place] 379705 Assigned Surgical Provider 02/07/23 04/15/23 Geri Loza PA-C 909 [place], [place] 957425 Assigned Surgical Provider 04/16/23 Raina Patterson, GINA CERTIFIED ADAPTED PHYSICAL EDUCATOR [address] [place] 0[address]195 Nurse Practitioner Cardiovascular Disease 05/11/23 documented as of this encounter
--- OUTSIDE RECORDS SUMMARY | 2024-01-08 09:54 | XMS_ITS | Encounter Summary ---
Author Organization [facility] Address [address] [place] [address] Care Team Providers Care Elementary Assistant Teacher Name Role Phone Edda Agudelo PA-C Primary Care Provider + [phone] Magno Wood MD Unavailable [phone] [facility] Primary Care Provider Unavailable Parth Ellis MD Unavailable +[phone] Tati Ayala MD Unavailable +[phone] Khris Butt MD Unavailable +[phone] MorelosRoderick nunes MD Unavailable +[phone] Roderick Morelos MD Unavailable +[phone] Magno Wood MD Unavailable [phone] Sophie Ocasio Unavailable +[phone] Parth Ellis MD Unavailable +[phone] MorelosRoderick nunes MD Unavailable [phone] Henny Rosales APRN LINE OUT WORKER Unavailable [phone] [facility] Primary Care Pr ovider Sharee Oliva RD Unavailable [phone] Kaykay Duarte NP Primary Care Provider Christiane Rodríguez MD Unavailable +[phone] Luis A Escobedo MD Unavailable + [phone] Chely Fernandez PA-C Unavailable +[phone] Cadena Jing Susie FUENTES DIRECTOR CHILD ABUSE THERAPY Unavailable + [phone] Radha Lopez [facility] Unavailable +[phone] Luis A Escobedo MD Unavailable + [phone] Dago Geri Gaytan PA-C Unavailable +[phone] Raina Patterson GINA LINE OUT WORKER Unavailable +[phone] Encounter Details Date Type Department Care Team (Late st Contact Info) Description 04/20/2009 Office Visit-[facility] Heart [address] [place] [phone] Lauri Canada APRN CNP NO INFO AVAILABLE [...] Referring Physician: LUIS A WORRELL Referring Clinic: [facility] CURRENT DIAGNOSES 1. - Hypercholesterolemia, 272.0 [...] Half-Brother - [place]; Sister 1 - CAD; CARDIAC RISK FACTORS [...] Out COVID-19 03/19/2020 03/19/2020 03/19/2020 6:22 PM OPERATIONS SUPERVISOR CHEMICAL CLEANING COVID-19 03/19/2020 03/19/2020 04/09/2020 11:3 9 PM OPERATIONS SUPERVISOR CHEMICAL CLEANING Rule Out COVID-19 06/19/2021 06/19/2021 06/19/2021 1:37 AM CDT Rule Out COVID-19 10/29/2021 10/29/2021 10/29/2021 1:07 AM CDT documented as of this encounter Care Teams Elementary Assistant Teacher Relationship Specialty Start Date End Date Edda Agudelo PA-C [facility] [address] [address] PCP - General 05/04/12 10/11/19 [facility] [address] [address] PCP - General Family Practice 10/12/19 08/18/22 [facility] [address] [place] [address] PCP - General 08/19/22 10/14/22 [place] [address] [place] [address] PCP - General 10/15/22 Magno Wood MD [address] [address] Otolaryngology 05/29/15 08/02/17 Parth Ellis MD [address] [place] [address] Assigned Heart and Vascular Provider 01/13/20 12/13/21 Tati Ayala MD [address] [place] [address] Assigned Endocrinology Provider 01/13/20 12/29/20 Khris Butt MD [address] [facility] [address] [place] [address] Assigned Heart and Vascular Provider 12/14/21 02/14/22 Roderick Morelos MD [address] [place] 047565 MD Cardiovascular Disease 02/03/22 Roderick Morelos MD [address] [place], [place] 324685 Assigned Heart and Vascular Provider 02/15/22 07/18/22 Magno Wood MD [address] [place] [address] 396 [place], [place] 496915 Otolaryngology 02/21/22 Sophie Ocasio AuD 909 [place], [place] 421295 Compliance Lead Audiology 02/21/22 Parth Ellis MD [address] [place] 730485 Assigned Heart and Vascular Provider 07/19/22 07/25/22 Roderick Morelos MD [address] [place] [address] Assigned Heart and Vascular Provider 07/26/22 08/08/22 Henny Rosales, PAINTING SUPERVISOR LINE OUT WORKER [address] [place] [address] Assigned Heart and Vascular Provider 08/09/[address] [place] [address] 483375 Registered Dietitian Dietitian, Registered 09/02/22 Christiane Rodríguez MD [address] [place] [address] 396 [place] [address] Otolaryngology 11/12/22 Luis A Escobedo MD [address] [place] [address] Assigned Surgical Provider 11/01/22 11/28/22 Chely Fernandez PA-C [address] [place] [address] 588775 Assigned Surgical Provider 11/29/22 02/06/23 Jing Cadena, PAINTING SUPERVISOR DIRECTOR CHILD ABUSE THERAPY [address] [place] [address] 450 [place], [place] 133355 Clinical Nurse Specialist Anesthesiology 01/15/23 Radha Lopez [facility] [address] [place] [address] 991885 Pharmacist Pharmacist 01/16/23 Luis A Escobedo MD [address] [place] [address] 195 [place], [place] 247415 Assigned Surgical Provider 02/07/23 04/15/23 Geri Loza PA-C 909 [place] [address] Assigned Surgical Provider 04/16/23 Raina Patterson APRN CNP [address] [facility] [address] [place] [address] Nurse Practitioner Cardiovascular Disease 05/11/23 documented as of this encounter
--- OUTSIDE RECORDS SUMMARY | 2024-01-08 09:54 | XMS_ITS | Encounter Summary ---
Author Organization [place] Address [address] [place] [address] 33250 Care Team Providers Care Tile Mason Name Role Phone Barrington Agudelo PA-C Primary Care Provider + [phone] Magno Wood MD Unavailable [phone] [facility] Primary Care Provider Unavailable Parth Ellis MD Unavailable +[phone] Tati Ayala MD Unavailable +[phone] Khris Butt MD Unavailable +[phone] MorelosRoderick nunes MD Unavailable +[phone] Roedrick Morelos MD Unavailable [phone] Magno Wood MD Unavailable [phone] Sophie Ocasio Unavailable +[phone] Parth Ellis MD Unavailable +[phone] MorelosRoderick nunes MD Unavailable [phone] Henny Rosales APRN PHOTOENGRAVING MACHINE OPERATOR/TENDER Unavailable [phone] [facility] Primary Care Pr ovider Sharee Oliva RD Unavailable [phone] Kaykay Duarte NP Primary Care Provider Christiane Rodríguez MD Unavailable +[phone] Luis A Escobedo MD Unavailable + [phone] Chely Fernandez PA-C Unavailable +[phone] Cadena Jing Susie FUENTES [facility] Unavailable + [phone] Radha Lopez [facility] Unavailable [phone] Luis A Escobedo MD Unavailable [phone] Geri Loza PA-C Unavailable +[phone] Raina Patterson GINA PHOTOENGRAVING MACHINE OPERATOR/TENDER Unavailable +[phone] Encounter Details Date Type Department Care Team (Late st Contact Info) Description 08/21/2011 [facility] [place] [id number] [place] [address] Dane Rosa MD Social History [...] old Referring Physician: BARRINGTON LARA Referring Clinic: [facility] CURRENT DIAGNOSES 1. - Hypercholesterolemia, 272.0 [...] lives with and children; Place of - [place]; Hours Worked - 30 hours per week; [...] Out COVID-19 03/19/2020 03/19/2020 03/19/2020 6:22 PM STEEL FLOOR PAN PLACING SUPERVISOR COVID-19 03/19/2020 03/19/2020 04/09/2020 11:3 9 PM STEEL FLOOR PAN PLACING SUPERVISOR Rule Out COVID-19 06/19/2021 06/19/2021 06/19/2021 1:37 AM CDT Rule Out COVID-19 10/29/2021 10/29/2021 10/29/2021 1:07 AM CDT documented as of this encounter Care Teams Tile Mason Relationship Specialty Start Date End Date Barrington Agudelo PA-C [facility] [address] [facility] [address] [place], [place] 7[address]38 PCP - General 05/04/12 10/11/19 Ernestina Martini 420 [facility] 396 [place] [address] PCP - General Family Practice 10/12/19 08/18/22 [facility] [place] [place] [address] [facility] [place] [address] PCP - General 08/19/22 10/14/22 [place] [address] [place] [address] PCP - General 10/15/22 Magno Wood MD 420 [facility] 396 [place], [place] 935245 Otolaryngology 05/29/15 08/02/17 Parth Ellis MD [address] [place] 506215 Assigned Heart and Vascular Provider 01/13/20 12/13/21 Tati Ayala MD [address] [place] [address] [place], [place] 594180 Assigned Endocrinology Provider 01/13/20 12/29/20 Khris Butt MD [address] [place] [address] [place] 702545 Assigned Heart and Vascular Provider 12/14/21 02/14/22 Roderick Morelos MD [address] [place] 110715 Cardiovascular Disease 02/03/22 Roderick Morelos MD [address] [place] 123575 Assigned Heart and Vascular Provider 02/15/22 07/18/22 Magno Wood MD [address] [place] [address] 306395 Otolaryngology 02/21/22 Sophie Ocasio AuD [address] [place] [address] 593265 [facility] Audiology 02/21/22 Parth Ellis MD [address] [place], [place] 322345 Assigned Heart and Vascular Provider 07/19/22 07/25/22 Roderick Morelos MD [address] [place], [place] 712045 Assigned Heart and Vascular Provider 07/26/22 08/08/22 Henny Rosales APRN PHOTOENGRAVING MACHINE OPERATOR/TENDER [address] [place] [phone] Assigned Heart and Vascular Provider 08/09/[address] [place] [address] [id number] Registered Dietitian Dietitian, Registered 09/02/22 Christiane Rodríguez MD [address] [place] [address] 665895 Otolaryngology 11/12/22 Luis A Escobedo MD [address] [place] [address] 971845 Assigned Surgical Provider 11/01/22 11/28/22 Chely Fernandez PA-C 909 [place] [address] Assigned Surgical Provider 11/29/22 02/06/23 Jing Cadena APRN ORACLE APPLICATIONS ANALYST 420 [facility] 450 [place], [place] 589395 Clinical Nurse Specialist Anesthesiology 01/15/23 Radha Lopez [facility] [address] [place] [address] 043715 Pharmacist Pharmacist 01/16/23 Luis A Escobedo MD [address] [place] [address] 195 [place] [address] Assigned Surgical Provider 02/07/23 04/15/23 Geri Loza PA-C [address] [place] [address] 029395 Assigned Surgical Provider 04/16/23 Raina Patterson APRN PHOTOENGRAVING MACHINE OPERATOR/TENDER [address] [place] [address] [place] 167085 Nurse Practitioner Cardiovascular Disease 05/11/23 documented as of this encounter
--- OUTSIDE RECORDS SUMMARY | 2024-01-08 09:54 | XMS_ITS | Encounter Summary ---
Author Organization [facility] Address [address] [place] [address] 04285 Care Team Providers Care Channel Cementer Outsole Machine Name Role Phone [facility] Primary Care Provider Unavailable Roderick Morelos MD Unavailable [phone] Roderick Morelos MD Unavailable [phone] Magno Wood MD Unavailable [phone] Sophie Ocasio AuD Unavailable [phone] Parth Ellis MD Unavailable [phone] Roderick Morelos MD Unavailable [phone] Henny Rosales APRN REGISTRAR NURSES' REGISTRY Unavailable [phone] [facility] Primary Care Pr ovider Sharee Oliva RD Unavailable [phone] Kaykay Duarte BATCH FREEZER OPERATOR Primary Care Provider Christiane Rodríguez MD Unavailable [phone] Luis A Escobedo MD Unavailable [phone] Chely Fernandez PA-C Unavailable [phone] Jing Cadena DIRECTOR FUNDRAISING METER INSTALLER AND REMOVER Unavailable [phone] Radha Lopez [facility] Unavailable [phone] Luis A Escobedo MD Unavailable Geri Loza PA-C Unavailable UzielkeriRaina APRN REGISTRAR NURSES' REGISTRY Unavailable [phone] Encounter Details Date Type Department Care Team (Late st Contact Info) Description 04/01/2022 [facility] [address] 4th [place] [address] [facility] [place] Social History Tobacco Use Types Packs/Day Years [...] on filedocumented in this encounter Care Teams Channel Cementer Outsole Machine Relationship Specialty Start Date End Date Ernestina Martini PCP - General Family Practice 10/12/19 08/18/22 [facility] [place] [place] [address] [place] [address] PCP - General 08/19/22 10/14/22 Kaykay Duarte BATCH FREEZER OPERATOR [address] [place] [address] PCP - General 10/15/22 Roderick Morelos MD [address] [place] 867205 Cardiovascular Disease 02/03/22 Roderick Morelos MD [address] [place] [address] Assigned Heart and Vascular Provider 02/15/22 07/18/22 Magno Wood MD 420 [facility] 396 [place], [place] 790705 Otolaryngology 02/21/22 Sophie Ocasio AuD [address] [place] [address] 445835 Web Operations Specialist Audiology 02/21/22 Parth Ellis MD [address] [place], [place] 886905 Assigned Heart and Vascular Provider 07/19/22 07/25/22 Roderick Morelos MD [address] [place] [address] Assigned Heart and Vascular Provider 07/26/22 08/08/22 Henny Rosales, DIRECTOR FUNDRAISING REGISTRAR NURSES' REGISTRY [address] [place] [address] Assigned Heart and Vascular Provider 08/09/22 Sharee Oliva, RD [address] [place] [address] [id number] Registered Dietitian Dietitian, Registered 09/02/22 Christiane Rodríguez MD 420 [facility] 396 [place], [place] 357865 Otolaryngology 11/12/22 Luis A Escobedo MD [address] [place] [address] 299595 Assigned Surgical Provider 11/01/22 11/28/22 Chely Fernandez PA-C 909 [place], [place] 737845 Assigned Surgical Provider 11/29/22 02/06/23 Jing Cadena APRN METER INSTALLER AND REMOVER 420 [facility] 450 [place], [place] 321415 Clinical Nurse Specialist Anesthesiology 01/15/23 Radha Lopez, [facility] 909 [place], [place] 961625 Pharmacist Pharmacist 01/16/23 Luis A Escobedo MD 420 [facility] 195 [place], [place] 991175 Assigned Surgical Provider 02/07/23 04/15/23 Geri Loza PA-C 909 [place], [place] 562205 Assigned Surgical Provider 04/16/23 Raina Patterson APRN REGISTRAR NURSES' REGISTRY [address] [facility] [address] [place] 429545 Nurse Practitioner Cardiovascular Disease 05/11/23 documented as of this encounter
--- OUTSIDE RECORDS SUMMARY | 2024-01-08 09:54 | XMS_ITS | Encounter Summary ---
Author Organization [facility] Address [address] [place] [address] 15675 Care Team Providers Care Scale Assembly Set Up Worker Name Role Phone Roderick Morelos MD Unavailable [phone] Magno Wood MD Unavailable [phone] Sophie Ocasio Unavailable [phone] Henny Rosales HUMAN RESOURCE PROFESSIONAL TRESTLE MAINTERNANCE LABORER Unavailable [phone] [facility] Primary Care Pr ovider Sharee Oliva RD Unavailable [phone] Kaykay Duarte BOILER FITTER Primary Care Provider [phone] Christiane Rodríguez MD Unavailable [phone] Luis A Escobedo MD Unavailable +[phone] Chely Fernandez PA-C Unavailable [phone] Jing Cadena APRN CHILDREN'S ENTERTAINER Unavailable + [phone] Radha Lopez [facility] Unavailable [phone] Luis A Escobedo MD Unavailable [phone] Geri LozaC Unavailable [phone] Raina Patterson HUMAN RESOURCE PROFESSIONAL TRESTLE MAINTERNANCE LABORER Unavailable [phone] Encounter Details Date Type Department Care Team (Late st Contact Info) Description 09/02/2022 [facility] [address] [place] [address] Kang Griffiths Social History Tobacco [...] on filedocumented in this encounter Care Teams Scale Assembly Set Up Worker Relationship Specialty Start Date End [place] [address] [place] [address] PCP - General 08/19/22 10/14/22 Kaykay Duarte NP [address] [place] [address] [place] [address] PCP - General 10/15/22 Roderick Morelos MD [address] [place], [place] 283575 Cardiovascular Disease 02/03/22 Magon Wood MD [address] [place] [address] 905295 Otolaryngology 02/21/22 Sophie Ocasio, AuD [address] [place] [address] Lead Mechanic Audiology 02/21/22 Henny Rosales, HUMAN RESOURCE PROFESSIONAL TRESTLE MAINTERNANCE LABORER [address] [place] [address] Assigned Heart and Vascular Provider 08/09/[address] [place] [address] 715645 Registered Dietitian Dietitian, Registered 09/02/22 Christiane Rodríguez MD [address] [place] [address] 396 [place], [place] 733855 Otolaryngology 11/12/22 Luis A Escobedo MD [address] [place] [address] 124095 Assigned Surgical Provider 11/01/22 11/28/22 Chely Fernandez PA-C [address] [place] [address] 120555 Assigned Surgical Provider 11/29/22 02/06/23 Jing Cadena, HUMAN RESOURCE PROFESSIONAL CHILDREN'S ENTERTAINER [address] [place] [address] 450 [place], [place] 084605 Clinical Nurse Specialist Anesthesiology 01/15/23 Radha Lopez, [facility] [address] [place] [address] 745015 Pharmacist Pharmacist 01/16/23 Luis A Escobedo MD [address] [place] [address] 195 [place], [place] 271645 Assigned Surgical Provider 02/07/23 04/15/23 Geri Loaz PA-C 9 [place] [address] Assigned Surgical Provider 04/16/23 Raina Patterson APRN [facility] [address] [facility] [address] [place] [address] Nurse Practitioner Cardiovascular Disease 05/11/23 documented as of this encounter
--- OUTSIDE RECORDS SUMMARY | 2024-01-08 09:54 | XMS_ITS | Encounter Summary ---
Author Organization [place] Address [address] [place] [address] 19572 Care Team Providers Care Vulcanizer Operator Name Role Phone [facility] Primary Care Provider Unavailable Khris Butt MD Unavailable [phone] MorelosRoderick nunes MD Unavailable [phone] Roderick Morelos MD Unavailable [phone] Magno Wood MD Unavailable [phone] Sophie Ocasio Unavailable [phone] Parth Ellis MD Unavailable MorelosRoderick nunes MD Unavailable Henny Rosales APRN ENDOSCOPY TECHNICAN Unavailable [phone] [facility] [place] [facility] [place] Primary Care Pr ovider Sharee Oliva RD Unavailable [phone] Kaykay Duarte BOBTAIL DRIVER Primary Care Provider Christiane Rodríguez MD Unavailable +[phone] Luis A Escobedo MD Unavailable +[phone] Chely FernandezC Unavailable [phone] Jing Cadena APRN RIPRAP PLACING SUPERVISOR Unavailable +[phone] JessicaRadha [facility] Unavailable Luis A Escobedo MD Unavailable [phone] Geri LozaC Unavailable Raina Patterson APRN ENDOSCOPY TECHNICAN Unavailable [phone] Encounter Details Date Type Department Care Team (Late st Contact Info) Description 02/11/2022 [facility] Medical Advice [facility] [place] [address] [facility] [address] [place] [address] Rowena [place] [...] Coronavirus/COVID-19? No / Unsure 02/10/2022 4:12 PM COMMUNITY DEVELOPMENT TECHNICIAN documented as of this encounter Plan of Treatment Not on file documented as of this encounter Visit Diagnoses Not on filedocumented in this encounter Care Teams Vulcanizer Operator Relationship Specialty Start Date End Date Ernestina Martini PCP - General Family Practice 10/12/19 08/18/22 [facility] [place] [address] [place], [place] 481347 PCP - General 08/19/22 10/14/22 Kaykay Duarte BOBTAIL DRIVER [address] [address] [place] 953757 PCP - General 10/15/22 Khris Butt MD 6404 [facility] [address] [place] 035305 Assigned Heart and Vascular Provider 12/14/21 02/14/22 Roderick Morelos MD [address] [place] [address] Cardiovascular Disease 02/03/22 Roderick Morelos MD [address] [place] [address] Assigned Heart and Vascular Provider 02/15/22 07/18/22 Magno Wood MD [address] [place] [address] 421635 Otolaryngology 02/21/22 Sophie Ocasio AuD 909 [place], [place] 512785 Document Image Technician Audiology 02/21/22 Parth Ellis MD [address] [place] 900145 Assigned Heart and Vascular Provider 07/19/22 07/25/22 Roderick Morelos MD [address] [place] [address] Assigned Heart and Vascular Provider 07/26/22 08/08/22 Henny Rosales APRN ENDOSCOPY TECHNICAN [address] [place] [phone] Assigned Heart and Vascular Provider 08/09/[address]09 [place], [place] 248665 Registered Dietitian Dietitian, Registered 09/02/22 Christiane Rodríguez MD 420 [facility] 396 [place], [place] 838565 Otolaryngology 11/12/22 Luis A Escobedo MD 420 [facility] 195 [place], [place] 414625 Assigned Surgical Provider 11/01/22 11/28/22 Chely Fernandez PA-C [address] [place] [address] 526615 Assigned Surgical Provider 11/29/22 02/06/23 Jing Cadena APRN RIPRAP PLACING SUPERVISOR [address] [place] [address] 450 [place], [place] 627645 Clinical Nurse Specialist Anesthesiology 01/15/23 Radha Lopez, [facility] [address] [place] [address] 349005 Pharmacist Pharmacist 01/16/23 Luis A Escobedo MD [address] [place] [address] 11328 Assigned Surgical Provider 02/07/23 04/15/23 Geri Loza PA-C [address] [place] [address] 272495 Assigned Surgical Provider 04/16/23 Raina Patterson APRN ENDOSCOPY TECHNICAN [address] [facility] [address] [place] 563895 Nurse Practitioner Cardiovascular Disease 05/11/23 documented as of this encounter
--- OUTSIDE RECORDS SUMMARY | 2024-01-08 09:54 | XMS_ITS | Encounter Summary ---
Author Organization [place] Address [address] [place] [address]52 Care Team Providers Care Heat Treat Operator Name Role Phone [place] N[facility] [place] Primary Care Provider Unavailable Roderick Morelos MD Unavailable [phone] Magno Wood MD Unavailable [phone] Sophie Ocasio Unavailable [phone] Henny Rosales NUT DEHYDRATOR OPERATOR GREY PERCHER Unavailable [phone] [facility] Jovanna [place] Primary Care Pr ovider Sharee Oliva RD Unavailable [phone] Kaykay Duarte AUTOMOBILE DRIVERS Primary Care Provider [phone] Christiane Rodríguez MD Unavailable [phone] Luis A Escobedo MD Unavailable [phone] Chely FernandezC Unavailable [phone] Jing Cadena APRN BIOMEDICAL ENGINEERING SUPERVISOR Unavailable +[phone] Radha Lopez [facility] Unavailable [phone] Luis A Escobedo MD Unavailable [phone] Geri Loza PAEddaC Unavailable +[phone] Ekman, Raina NUT DEHYDRATOR OPERATOR GREY PERCHER Unavailable [phone] Encounter Details Date Type Department Care Team (Late st Contact Info) Description 08/16/2022 [facility] [address] 4th [place] [address] Kang Griffiths Social History Tobacco [...] on filedocumented in this encounter Care Teams Heat Treat Operator Relationship Specialty Start Date End Date Ernestina Martini PCP - General Family Practice 10/12/19 08/18/22 [facility] [place] [address] [place] [address] PCP - General 08/19/22 10/14/22 [place] [address] [place] [address] PCP - General 10/15/22 Roderick Morelos MD [address] [place] 150515 Cardiovascular Disease 02/03/22 Magno Wood MD [address] [place] [facility] 396 [place], [place] 344275 Otolaryngology 02/21/22 Sophie Ocasio AuD 9 [place], [place] 574895 Microsoft Application Developer Audiology 02/21/22 Henny Rosales APRN GREY PERCHER [address] [place] [address] Assigned Heart and Vascular Provider 08/09/[address] [place] [address] 337215 Registered Dietitian Dietitian, Registered 09/02/22 Christiane Rodríguez MD 420 [facility] 396 [place], [place] 848005 Otolaryngology 11/12/22 Luis A Escobedo MD 420 [facility] 195 [place] [address] Assigned Surgical Provider 11/01/22 11/28/22 Chely Fernandez PA-C [address] [place] [address] Assigned Surgical Provider 11/29/22 02/06/23 Jing Cadena APRN BIOMEDICAL ENGINEERING SUPERVISOR 420 [facility] 450 [place] [address] Clinical Nurse Specialist Anesthesiology 01/15/23 Radha Lopez, [facility] [address] [place] [address] [phone] Pharmacist Pharmacist 01/16/23 Luis A Escobedo MD 420 [facility] 195 [place], [place] 547345 Assigned Surgical Provider 02/07/23 04/15/23 Geri Loza PA-C 909 [place], [place] 372075 Assigned Surgical Provider 04/16/23 Raina Patterson APRN GREY PERCHER [address] [facility] [address] [place] [address]0125 Nurse Practitioner Cardiovascular Disease 05/11/23 documented as of this encounter
--- OUTSIDE RECORDS SUMMARY | 2024-01-08 09:55 | XMS_ITS | Encounter Summary ---
Author Organization [place] Address [address] [place] [address] Care Team Providers Care Cook Tortilla Name Role Phone Edda Agudelo PA-C Primary Care Provider + [phone] Magno Wood MD Unavailable [phone] [place] [facility] Primary Care Provider Unavailable Parth Ellis MD Unavailable +[phone] Tati Ayala MD Unavailable +[phone] Khris Butt MD Unavailable +[phone] MorelosRoderick nunes MD Unavailable [phone] Roderick Morelos MD Unavailable [phone] Magno Wood MD Unavailable [phone] Sophie Ocasio Unavailable +[phone] Parth Ellis MD Unavailable +[phone] MorelosRoderick nunes MD Unavailable [phone] Henny Rosales APRN CLAY DRY PRESS OPERATOR Unavailable [phone] [facility] Pr ovider Sharee Oliva RD Unavailable [phone] Kaykay Duarte NP Primary Care Provider Christiane Rodríguez MD Unavailable +[phone] Luis A Escobedo MD Unavailable + [phone] Chely Fernandez PA-C Unavailable +[phone] [facility] Unavailable + [phone] Radha Lopez [facility] Unavailable [phone] Luis A Escobedo MD Unavailable +[phone] Geri Loza PA-C Unavailable +[phone] Raina Patterson GINA CLAY DRY PRESS OPERATOR Unavailable +[phone] Encounter Details Date Type Department Care Team (Late st Contact Info) Description 12/06/2004 Office Visit-[facility] [address] [id number] [place] [address] Unknown, DoctorMD Social History Tobacco [...] Physician: BOY WATSON Referring Clinic: [facility] CURRENT DIAGNOSES 1. - Hypercholesterolemia, 272.0 [...] and labs HISTORY OF PRESENT ILLNESS </B><FONT FACE=Die Cut Operator New> Jimbo Owens is a pleasant, [...] cholesterol 194, ratio 5.4, ALT 14. Her Lytton 10-year risk score is 1%. According to that, her LDL cholesterol goal should be less than 160, although given her risk factors and family history, she may certainly benefit termite renewal inspector from an LDL cholesterol between 100-120. Jimbo, [...] mcg/inh and Zocor 20 mg IMPRESSIONS/PLAN </B><FONT FACE=Die Cut Operator New>1) Family history of coronary artery [...] Out COVID-19 03/19/2020 03/19/2020 03/19/2020 6:22 PM REVENUE FIELD AUDITOR COVID-19 03/19/2020 03/19/2020 04/09/2020 11:3 9 PM REVENUE FIELD AUDITOR Rule Out COVID-19 06/19/2021 06/19/2021 06/19/2021 1:37 AM CDT Rule Out COVID-19 10/29/2021 10/29/2021 10/29/2021 1:07 AM CDT documented as of this encounter Care Teams Cook Tortilla Relationship Specialty Start Date End Date Edda Agudelo PA-C [facility] [address] [address] PCP - General 05/04/12 10/11/19 Ernestina Martini [address] [address] PCP - General Family Practice 10/12/19 08/18/22 [facility] Jovanna Otis [address] [place] [address] PCP - General 08/19/22 10/14/22 Kaykay Duarte, SUPERVISOR FISH HATCHERY [address] [place], [place] 807207 PCP - General 10/15/22 Magno Wood MD [address] 089195 Otolaryngology 05/29/15 08/02/17 Parth Ellis MD [address] [place] [address] Assigned Heart and Vascular Provider 01/13/20 12/13/21 Tati Ayala MD [address] [place], [place] 9927[address] Assigned Endocrinology Provider 01/13/20 12/29/20 Khris Butt MD [address] [place] 031195 Assigned Heart and Vascular Provider 12/14/21 02/14/22 Roderick Morelos MD [address] [place] [address] MD Cardiovascular Disease 02/03/22 Roderick Morelos MD [address] [place] [address] Assigned Heart and Vascular Provider 02/15/22 07/18/22 Magno Wood MD [address] [place] [address] 396 [place], [place] 833995 Otolaryngology 02/21/22 Sophie Ocasio AuD [address] [place], [place] 226465 Lumber Stacker Driver Audiology 02/21/22 Parth Ellis MD [address] 086675 Assigned Heart and Vascular Provider 07/19/22 07/25/22 Roderick Morelos MD [address] [place] [address] Assigned Heart and Vascular Provider 07/26/22 08/08/22 Henny Rosales APRN CLAY DRY PRESS OPERATOR [address] [place] [phone] Assigned Heart and Vascular Provider 08/09/[address] [place] [address]65895 Registered Dietitian Dietitian, Registered 09/02/22 Christiane Rodríguez MD [address] [place] [address] [address] [place], [place] 788055 Otolaryngology 11/12/22 Luis A Escobedo MD [address] [place] [address]995 Assigned Surgical Provider 11/01/22 11/28/22 Chely Fernandez PA-C [address] [place] [address] 226015 Assigned Surgical Provider 11/29/22 02/06/23 Jing Cadena APRN PUBLIC HEALTH SERVICE OFFICER [address] [place] [address] [address] [place], [place] 408335 Clinical Nurse Specialist Anesthesiology 01/15/23 Radha Lopez, [facility] [address] [place] [address] Pharmacist Pharmacist 01/16/23 Luis A Escobedo MD [address] [place] [address] [address] [place], [place] 528425 Assigned Surgical Provider 02/07/23 04/15/23 Geri Loza PA-C [address] [place] [address] Assigned Surgical Provider 04/16/23 Raina Patterson APRN [facility] [address] [place] [address] Nurse Practitioner Cardiovascular Disease 05/11/23 documented as of this encounter
--- OUTSIDE RECORDS SUMMARY | 2024-01-08 09:55 | XMS_ITS | Encounter Summary ---
Author Organization [place] Address [address] [place] [address] Care Team Providers Care Pst Manager Name Role Phone Edda Agudelo PA-C Primary Care Provider + [phone] Magno Wood MD Unavailable [phone] [place] [facility] Primary Care Provider Unavailable Parth Ellis MD Unavailable [phone] Tati Ayala MD Unavailable [phone] Khris Butt MD Unavailable +[phone] MorelosRoderick nunes MD Unavailable [phone] Roderick Morelos MD Unavailable [phone] Magno Wood MD Unavailable [phone] Sophie Ocasio Unavailable +[phone] Parth Ellis MD Unavailable +[phone] MorelosRoderick nunes MD Unavailable [phone] Henny Rosales APRN MEDICAL DEVICE ASSEMBLER Unavailable [phone] [facility] Primary Care Pr ovider Sharee Oliva RD Unavailable [phone] Kaykay Duarte NP Primary Care Provider Christiane Rodríguez MD Unavailable +[phone] Luis A Escobedo MD Unavailable + [phone] Chely Fernandez PA-C Unavailable [phone] Jing Cadena APRN [facility] Unavailable + [phone] Radha Lopez [facility] Unavailable [phone] Luis A Ecsobedo MD Unavailable + [phone] Geri Loza PA-C Unavailable +[phone] Raina Patterson GINA MEDICAL DEVICE ASSEMBLER Unavailable [phone] Encounter Details Date Type Department Care Team (Late st Contact Info) Description 10/20/2001 Office Visit-[facility] [id number] [place] [address] Unknown, DoctorMD Social History Tobacco [...] Out COVID-19 03/19/2020 03/19/2020 03/19/2020 6:22 PM BARREL ROLLER COVID-19 03/19/2020 03/19/2020 04/09/2020 11:3 9 PM BARREL ROLLER Rule Out COVID-19 06/19/2021 06/19/2021 06/19/2021 1:37 AM CDT Rule Out COVID-19 10/29/2021 10/29/2021 10/29/2021 1:07 AM CDT documented as of this encounter Care Teams Pst Manager Relationship Specialty Start Date End Date Edda Agudelo PA-C [facility] [address] [address] PCP - General 05/04/12 10/11/19 [facility] [address] [address] PCP - General Family Practice 10/12/19 08/18/22 [facility] [address] [place], [place] 472227 PCP - General 08/19/22 10/14/22 [place] [address] [place], [place] 998697 PCP - General 10/15/22 Magno Wood MD [address] 015[address] MD Otolaryngology 05/29/15 08/02/17 Parth Ellis MD [address] [place] 836015 Assigned Heart and Vascular Provider 01/13/20 12/13/21 Tati Ayala MD [address] [place], [place] 5[address] Assigned Endocrinology Provider 01/13/20 12/29/20 Khris Butt MD [address] [facility] [address] [place] [address] Assigned Heart and Vascular Provider 12/14/21 02/14/22 Roderick Morelos MD [address] [place] [address] Cardiovascular Disease 02/03/22 Roderick Morelos MD [address] [place] [address] Assigned Heart and Vascular Provider 02/15/22 07/18/22 Magno Wood MD [address] [place] [address] Otolaryngology 02/21/22 Sophie Ocasio AuD [address] [place] [address] 760175 Geography Head Audiology 02/21/22 Parth Ellis MD [address] [place] 389455 Assigned Heart and Vascular Provider 07/19/22 07/25/22 Roderick Morelos MD [address] [place] [address] Assigned Heart and Vascular Provider 07/26/22 08/08/22 Henny Rosales APRN MEDICAL DEVICE ASSEMBLER [address] [place] [phone] Assigned Heart and Vascular Provider 08/09/[address] [place], [place] 4723[address] Registered Dietitian Dietitian, Registered 09/02/22 Christiane Rodríguez MD 420 [facility] 396 [place], [place] 928645 Otolaryngology 11/12/22 Luis A Escobedo MD 420 [facility] 195 [place], [place] 090205 Assigned Surgical Provider 11/01/22 11/28/22 Chely Fernandez PA-C [address] [place], [place] 7364[address] Assigned Surgical Provider 11/29/22 02/06/23 Jing Cadena APRN [employer] 420 [facility] 450 [place], [place] 839995 Clinical Nurse Specialist Anesthesiology 01/15/23 Radha Lopez, [facility] [address] [place] [address] Pharmacist Pharmacist 01/16/23 Luis A Escobedo MD [address] [place] [address] Assigned Surgical Provider 02/07/23 04/15/23 Geri Loza PA-C [address] [place] [address] Assigned Surgical Provider 04/16/23 Raina Patterson APRN MEDICAL DEVICE ASSEMBLER [address] [place] [address] Nurse Practitioner Cardiovascular Disease 05/11/23 documented as of this encounter
--- OUTSIDE RECORDS SUMMARY | 2024-01-08 09:55 | XMS_ITS | Encounter Summary ---
Author Organization [facility] Address [address] [place] [address] Care Team Providers Care Collaborating Supervising Physician Name Role Phone Kaykay Duarte APRN, LEAH Primary Care Provid er Encounter Details Date Type Department Care Team (Late st Contact Info) Description 12/18/2023 Notes/Orders Centralized Outreach [address] [place] [address] [phone] Mikayla Sweeney MD [address] [place] [address] Type 2 diabetes mellitus without [...] ([facility]) documented in this encounter Care Teams Collaborating Supervising Physician Relationship Specialty Start Date End Date Kaykay Duarte, GINA, PROCESS HELPER [address] [place] [address] PCP - General Nurse Practitioner 10/25/21 documented as of this encounter
--- OUTSIDE RECORDS SUMMARY | 2024-01-08 09:55 | XMS_ITS | Clinical Summary ---
Author Organization [facility] Address [address] [place] [address] Care Team Providers Care Airline Dispatcher Name Role Phone Kaykay Duarte APRN, LEAH Primary Care Provid er Source Comments You are receiving this document as you are listed as the primary care provider,follow-up provider, or the patient has been referred to you for consultation.This is in compliance with the Medicare and[facility]. [facility] EHR Incentive Program,which states Providers who transition their patient to another setting of careor provider of care or refers their patient to another provider of care shouldprovide summary care record for each transition of care or referral. [employer] Allergies No known active allergies Medications Medication [...] use. 1 Each 3 02/20/2022 Active cyanocobalamin (NBNSMLNE22) 1000 MCG/ML injection Inject 1,000 mcg subcutaneously [...] (01/04/2021): Added automatically from request for surgery [id number] S/P laparoscopic sleeve gastrectomy 08/09/2020 Overview (08/09/2020): [...] 35 RDI 36 Lowest O2 Sat: 87% [facility] Cervical high risk HPV (human papillomavirus) te st positive 08/05/2017 Overview (06/01/2023): [facility] Review: History: 07/2017: NILM HPV+ (18) [...] Notes/Orders Centralized Outreach [address] [place] [address] [address] Mikayla Sweeney MD Type 2 diabetes mellitus without complication, without long-term current use of insulin (HRC) from Last 3 Months Immunizations Name Administration Dates Next Due Influenza IIV4 (Quadrivalent ) 0.5mL (60311) 02/08/2021,03/31/2019,04/14/2017 PCV20 (Syfehpq09) 05/20/2023 PPSV23 (Pneumovax) 04/14/2017 Pfizer Monovalent 12+ [...] (265 lb 9.6 oz) 05/20/2023 2:19 PM DIP STAND LOADER Height 167.6 cm (5' 6) 09/11/2022 4:11 [...] this topic Medical Devices Implanted Type Area Mortgage Branch Manager Device Identifier Shelf Expiration Date Model / Serial / Lot Kit Leidy Burris Sys - [id number] Implanted:Qty: 1 on 02/19/2021 by Zoila Shakih MBBS at [facility] DEVICE N/A: PELVIS [employer] 12/05/2021 [id number] / [id number] / [id number] Description:Polypropylene me sh- per [employer] Ent Gyrus Virk Torp-05/20/2005 Implanted: 006 (Quantity not on file) ENT EAR 14-1187 / / [id number] Description:Devices that are made from non-metallic materials (i.e. Implants and Ventilation Tubes made from DAVIS, Plasti-pore, Silicone, Fluoroplastic) are inherently non-conducting and non-magnetic and pose no known hazards in all MR environments and therefore are considered MR Safe. - Per [facility] Procedures Procedure Name Priority Date/Time Associated Diagnosis Comments PAP TEST Routine 04/29/2023 9:58 AM DIP STAND LOADER Screening for cervical cancer MM MAMMOGRAM SCREENING BILAT W 3D SCOT W CAD Routine 04/02/2023 8:58 AM DIP STAND LOADER HGB A1C Routine 12/23/2022 11:40 AM CDT [...] Results * PAP Test (04/29/2023 9:58 AM DIP STAND LOADER) Case Report Pap ? Case: [id number] ? Authorizing Provider: ??Elizabeth Herndon APRN, ?Collected: ? 04/29/2023 0958 ? CNM ? Ordering Location: ? [facility] ? Received: ?04/29/2023 1008 ? Services-FIRE PATROLLER ? First Screen: ?Nault, Diana E, CT (ASCP) ? Specimen: ?Pap Test, Routine, Cervix/Endocervix ? 05/21/2023 1:19 PM DIP STAND LOADER [facility] Pap Specimen Adequacy Satisfactory for evaluation, endocervical/kerr sformation zone component present. 05/21/2023 1:19 PM DIP STAND LOADER [facility] Pap Interpretation (NILM) Negative for intraepithelial lesion or malignancy. 05/21/2023 1:19 PM DIP STAND LOADER [facility] Pap Disclaimer The Pap test is a screening test to aid in the detection of cervical and vaginal cancers and their precursor lesions. It is not a diagnostic procedure and should not be used as the sole means of detecting malignancy. Both false-positive and false-negative results may occur. 05/21/2023 1:19 PM DIP STAND LOADER [facility] Gross Description The specimen is received in SurePath fixative and properly labeled. 1 Pap-stained SurePath slide is prepared. 05/21/2023 1:19 PM DIP STAND LOADER [facility] Embedded Images 1:19 PM DIP STAND LOADER [facility] Other Specimen Type ENTIRE ENDOCERVIX / Unknown 04/29/2023 9:58 AM DIP STAND LOADER 04/29/2023 10:08 AM DIP STAND LOADER Comment:LMP: No LMP recorded . (Menstrual status: IUD). Elizabeth Herndon APRN, CNM LAB PATHOLOGY Performing Organization Address City/State/[facility] de Phone Number [facility] [address] * MM Mammogram Screening Bilat W 3D Scot W CAD (04/02/2023 8:58 AM DIP STAND LOADER) Anatomical Region Laterality Modality Breast Bilateral Mammography Impressions 04/02/2023 10:15 AM DIP STAND LOADER : ACR BI-RADS Category 1: Negative RECOMMENDATION: Follow Up Imaging in 12 months - Bilateral The provided family history indicates that the patient might be at a high lifetime risk of breast cancer. Consider a formal risk assessment if not previously performed. The results and recommendations of this examination will be communicated to the patient. Narrative 04/02/2023 10:15 AM DIP STAND LOADER MM MAMMOGRAM SCREENING BILAT W 3D SCOT [...] radiographic evidence of malignancy. ?? Kaykay Duarte EXERCISE EQUIPMENT SPECIALIST, CHIEF OF PEDIATRIC UROLOGY RAD CARLOS * (ABNORMAL) HgbA1c - Collect in Lab (12/23/2022 11:40 AM CDT) Hemoglobin A1C (Rapid) 6.4(H) <=5.6 % 12/23/2022 1:46 PM CDT [facility] Estimated Average Glucose (Calc) 137 < 117 mg/dL 12/23/2022 1:46 PM T [facility] Comment:Estimated average gl ucose (eAG) converts A1c into glucose units (mg/dL) and estimates average glucose over the past approximately 3 months. The eAG reference interval (<117 mg/dL) corresponds to an A1c of <5.7%. Blood Venipuncture / Unknown 12/23/2022 11:40 AM CDT 12/23/2022 11:43 AM CDT Narrative [facility] - 12/23/2022 1:46 PM CDT For [...] direction. Mikayla Sweeney MD LAB_1 [facility] [address] [place] [address], [facility] [phone] * Endoscopy, colon, diagnostic (11/20/2022 7:03 AM [...] saturations were ? monitored continuously. The ? [id number] was introduced through ? the anus and [...] the initial medication ? administration until the author assists with ? initial maneuvers (biopsy / [...] Procedure Code(s): ? --- Professional --- ? 96323, Colonoscopy, flexible; ? diagnostic, including collection of ? specimen(s) by brushing or washing, ? when performed (separate procedure) ? 02672, Moderate sedation; each ? additional 15 minutes [...] (additional time may ? be reported with 54103, as ? appropriate) Diagnosis Code(s): ? --- Professional --- ? Z12.11, Encounter for screening for ? malignant neoplasm of colon ? K64.9, Unspecified hemorrhoids CPT copyright 2020 [employer]. All rights reserved. The codes documented in this report are preliminary and upon rn community health review may be revised to meet current [...] and oxygen saturations were monitored continuously. The [id number] was introduced through the anus and advanced [...] from the initial medication administration until the author assists with initial maneuvers (biopsy / polypectomy / etc.), or if no maneuvers are performed, until the endoscopist leaves the room. Impression: - The examined portion of the ileum was normal. - The entire examined colon is normal. - Hemorrhoids. - No specimens collected. Recommendation: - Repeat colonoscopy in 10 years for screening purposes. Procedure Code(s): --- Professional --- 89445, Colonoscopy, flexible; diagnostic, including collection of specimen(s) by brushing or washing, when performed (separate procedure) 68556, Moderate sedation; each additional 15 minutes intraservice time G0500, Moderate sedation services provided by the same physician or other qualified health animal care worker performing a gastrointestinal endoscopic service that sedation supports, requiring the presence of an independent trained observer to assist in the monitoring of the patient's level of consciousness and physiological status; initial 15 minutes of intra-service time; patient age 5 years or older (additional time may be reported with 70192, as appropriate) Diagnosis Code(s): --- Professional --- Z12.11, Encounter for screening for malignant neoplasm of colon K64.9, Unspecified hemorrhoids CPT copyright 2020 [employer]. All rights reserved. The codes documented in this report are preliminary and upon rn community health review may be revised to meet current compliance requirements. Nahomy Latham, 11/20/2022 8:02:54 AM This document has been electronically signed. Number of Addenda: 0 Note Initiated On: 11/20/2022 7:03 AM Endoscopy Report Elizabeth Herndon EXERCISE EQUIPMENT SPECIALIST, CNM ET GI PROCEDUR E ORDERABLES * (ABNORMAL) Lipid Panel and Direct LDL(If Needed) (10/23/2022 11:20 AM CDT) Cholesterol 322(H) 0 - 199 mg/dL 10/23/2022 1:00 PM T [facility] Triglyceride 205(H) <=149 mg/dL 10/23/2022 1:00 PM [facility] HDL Cholesterol 46 >=40 mg/dL 3 1:00 PM [facility] LDL, Calculated 235(H) <130 mg/dL 3 1:00 PM [facility] Non HDL Chol, Calculated 276(H) <=159 mg/dL 10/23/2022 1:00 PM [facility] Cholesterol/HDL Ratio 7.0 10/23/2022 1:00 PM [facility] Hours Fasting 0 10/23/2022 1:00 PM [facility] Blood Venipuncture / Unknown 10/23/2022 11:20 AM CDT 10/23/2022 11:39 AM CDT Mikayla Sweeney MD LAB_1 [facility] [address] [place] [address] [phone] * (ABNORMAL) Comp Metabolic Panel (10/23/2022 11:20 AM CDT) Sodium 139 136 - 145 mmol/L 10/23/2022 1:00 PM T [facility] Potassium 4.3 3.5 - 5.1 mmol/L 10/23/2022 1:00 PM [facility] Chloride 105 98 - 109 mmol/L 10/23/2022 1:00 PM [facility] CO2 24 20 - 29 mmol/L 10/23/2022 1:00 PM [facility] Anion Gap 10 7 - 16 mmol/L 10/23/2022 1:00 PM [facility] Calcium 9.4 8.4 - 10.4 mg/dL 10/23/2022 1:00 PM [facility] BUN 17 7 - 26 mg/dL 10/23/2022 1:00 PM [facility] Creatinine 0.90 0.55 - 1.02 mg/dL 10/23/2022 1:00 PM [facility] Alkaline Phosphatase 73 40 - 150 U/L 10/23/2022 1:00 PM [facility] AST (SGOT) 16 10 - 40 U/L 10/23/2022 1:00 PM [facility] ALT (SGPT) 21 <=55 U/L 10/23/2022 1:00 PM [facility] Bilirubin, Total 0.4 0.2 - 1.2 mg/dL 10/23/2022 1:00 PM [facility] Protein, Total 7.0 6.4 - 8.3 g/dL 10/23/2022 1:00 PM [facility] Albumin 3.8 3.5 - 5.0 g/dL 10/23/2022 1:00 PM [facility] Glucose 123(H) 70 - 100 mg/dL 10/23/2022 1:00 PM [facility] Comment:The given reference range is for the fasting state. Non-fasting reference range for glucose is 70 - 180 mg/dL. Hours Fasting 0 10/23/2022 1:00 PM [facility] GFR, Estimated >60 >60 mL/min/1.7 3m2 10/23/2022 1:00 PM [facility] Blood Venipuncture / Unknown 10/23/2022 11:20 AM CDT 10/23/2022 11:39 AM [facility] Geri Loza PA-C LAB_1 [facility] [address] [place] [address], [facility] [phone] * Albumin/Creatinine Ratio,Random Urine (08/20/2022 8:36 AM CDT) Pathologist [facility] Albumin/Creati nine Ratio, Urine, Random 10 <30 mg/g 08/20/2022 10:58 AM CDT [facility] Albumin, Urine, Random 18.1 mg/L 08/20/2022 10:58 AM CDT [facility] Creatinine, Urine, Random 182 >20 mg/dL mg/dL 08/20/2022 10:58 AM CDT [facility] Urine Non-blood Collection / Unknown 08/20/2022 8:36 AM CDT 08/20/2022 9:30 AM CDT Mikayla Sweeney MD LAB_1 [facility] [address] [place] [address] [phone] * Hepatitis C Antibody, with Reflex (09/13/2021 11:05 AM CDT) [facility] Hepatitis C Antibody Negative (Non Reactive) Negative (Non Reactive) 09/13/2021 4:31 PM CDT [facility] Comment:Antibodies to HCV no t detected. Does not exclude the possiblity of exposure to HCV. Blood Venipuncture / Unknown 09/13/2021 11:05 AM CDT 09/13/2021 11:16 AM CDT Kaykay Duarte APRN, LEAH LAB[facility]1 [facility] [address] [place], [place] [address] [place] [address] * HIV 1/2 Ag/Ab 4th Generation (06/27/2020 8:04 AM CDT) [facility] HIV 1/2 Antigen/Antib sherry (4th generation) Negative (Non Reactive) Negative (Non Reactive) 06/27/2020 12:45 PM CDT [facility] Comment:HIV-1 p24 Antigen an d HIV-1/HIV-2 Antibody not detected Blood Venipuncture / Unknown 06/27/2020 8:04 AM CDT 06/27/2020 8:09 AM CDT Kaykay Duarte APRN, CNP LAB_1 [facility] [address] [place] [address], [facility] from Last 3 Months or Most Recently Relevant to Health Maintenance Advance Directives * Full Code (Latest Code Status on File) Date Activated Date Inactivated Comments 08/09/2020 4:04 PM 08/10/2020 1:55 PM Care Teams Airline Dispatcher Relationship Specialty Start Date End Date Kaykay Duarte APRN, CNP [address] [place] [address] PCP - General Nurse Practitioner 10/25/21
--- OUTSIDE RECORDS SUMMARY | 2024-01-08 09:55 | XMS_ITS | Encounter Summary ---
Author Organization [facility] Address [address] [place] [address] Care Team Providers Care Slide Developer Name Role Phone Edda Agudelo PA-C Primary Care Provider + [phone] Magno Wood MD Unavailable [phone] [facility] Primary Care Provider Unavailable Parth Ellis MD Unavailable [phone] Tati Ayala MD Unavailable [phone] Khris Butt MD Unavailable [phone] MorelosRoderick nunes MD Unavailable [phone] Roderick Morelos MD Unavailable [phone] Magno Wood MD Unavailable [phone] Sophie Ocasio Unavailable [phone] Parth Ellis MD Unavailable [phone] MorelosRoderick nunes MD Unavailable [phone] Henny Rosales APRN MACHINE ROOM ENGINEER Unavailable [phone] [facility] Primary Care Pr ovider Sharee Oliva RD Unavailable [phone] Kaykay Duarte NP Primary Care Provider Christiane Rodríguez MD Unavailable [phone] Luis A Escobedo MD Unavailable [phone] Chely Fernandez PA-C Unavailable [phone] CadenaJing APRN [facility] Unavailable + [phone] Radha Lopez [facility] Unavailable [phone] Luis A Escobedo MD Unavailable [phone] Geri Loza PA-C Unavailable [phone] Yesenia Raina [facility] Unavailable +[phone] Encounter Details Date Type Department Care Team (Late st Contact Info) Description 01/25/2004 Office Visit-[facility] [place] [id number] [place] [address] Unknown, DoctorMD Social History Tobacco [...] old Referring Physician: BOY WATSON Referring Clinic: [facility] CURRENT DIAGNOSES 1. - Shortness of Breath, [...] Mother - Age 34, cancer-breast; Half-Brother - [place]; Sister 1 - CAD; SOCIAL HISTORY Alcohol [...] Out COVID-19 03/19/2020 03/19/2020 03/19/2020 6:22 PM JAVA SOFTWARE ENGINEER COVID-19 03/19/2020 03/19/2020 04/09/2020 11:3 9 PM JAVA SOFTWARE ENGINEER Rule Out COVID-19 06/19/2021 06/19/2021 06/19/2021 1:37 AM CDT Rule Out COVID-19 10/29/2021 10/29/2021 10/29/2021 1:07 AM CDT documented as of this encounter Care Teams Slide Developer Relationship Specialty Start Date End Date Edda Agudelo PA-C [facility] [address] [place] [id number] PCP - General 05/04/12 10/11/19 Ernestina Martini [address] [facility] [address] [place] [address] PCP - General Family Practice 10/12/19 08/18/22 [place] [id number] [facility] [place] [address] PCP - General 08/19/22 10/14/22 [place] [address] [place] [address] PCP - General 10/15/22 Magno Wood MD [address] [facility] [address] [place], [place] [address] Otolaryngology 05/29/15 08/02/17 Parth Ellis MD [address] [place] [id number] Assigned Heart and Vascular Provider 01/13/20 12/13/21 Tati Ayala MD [address] [place], [place] [address] Assigned Endocrinology Provider 01/13/20 12/29/20 Khris Butt MD [address] [place] [address] [place] [address] Assigned Heart and Vascular Provider 12/14/21 02/14/22 Roderick Morelos MD [address] [place] [id number] Cardiovascular Disease 02/03/22 Roderick Morelos MD [address] [place] [address] Assigned Heart and Vascular Provider 02/15/22 07/18/22 Magno Wood MD [address] 794[address] Otolaryngology 02/21/22 Sophie Ocasio AuD [address] [place] [address] 058565 Supervisory Investigative Specialist Audiology 02/21/22 Parth Ellis MD [address] [place], [place] [address] Assigned Heart and Vascular Provider 07/19/22 07/25/22 Roderick Morelos MD [address] [place], [place] 131585 Assigned Heart and Vascular Provider 07/26/22 08/08/22 Henny Rosales APRN MACHINE ROOM ENGINEER [address] [place] [address] Assigned Heart and Vascular Provider 08/09/[address] [place] [address] 002525 Registered Dietitian Dietitian, Registered 09/02/22 Christiane Rodríguez MD [address] [place] [address] 516365 Otolaryngology 11/12/22 Luis A Escobedo MD [address] [place] [address] 020815 Assigned Surgical Provider 11/01/22 11/28/22 Chely Fernandez PA-C [address] [place], [place] 7[address]85 Assigned Surgical Provider 11/29/22 02/06/23 Jing Cadena APRN MOBILE DEVELOPER [address] [facility] [address] [place], [place] [address] Clinical Nurse Specialist Anesthesiology 01/15/23 Radha Lopez, [facility] [address] [place] [address] [phone] Pharmacist Pharmacist 01/16/23 Luis A Escobedo MD [address] [facility] [address] [place], [place] [address] Assigned Surgical Provider 02/07/23 04/15/23 Geri Loza PA-C [address] [place] [address] 849295 Assigned Surgical Provider 04/16/23 Raina Patterson APRN MACHINE ROOM ENGINEER [address] [facility] [address] [employer], [place] [address]68[address] Nurse Practitioner Cardiovascular Disease 05/11/23 documented as of this encounter
--- OUTSIDE RECORDS SUMMARY | 2024-01-08 09:55 | XMS_ITS | Encounter Summary ---
Author Organization [facility] Address [address] [address] Care Team Providers Care Infantryman Name Role Phone Kaykay Duarte APRN, CNP Primary Care Provid er Reason for Visit * Reason Comments Vaginal Odor Encounter Details Date Type Department Care Team (Late st Contact Info) Description 04/14/2018 Nurse Triage [facility] [id number] [place] [address] Kaykay Duarte APRN, CNP [id number] [place] [address] [phone] Vaginal Odor Social History Tobacco Use Types [...] States she will go to Urgent Care NCILIATION CLERK * Kaykay Duarte APRN, CNP - 04/14/2018 3:22 PM CST Plz call pt. Ok to work her in on at 11:40 or 1pm. NCILIATION CLERK * Geri Burnett, RN - 04/14/2018 3:09 PM CST Clinician Action: Appointment Work In Reason Vaginal discharge/odor Clinician Next Step: Route to [facility] to follow up and Patient IS expecting a call back from care team Specific Request(s): 1. Pt asking for a work in [facility] for vaginal discharge (white) and odor x [...] last menstrual period? no Protocols used: VAGINAL [id number] NCILIATION CLERK * Karen Saunders - 04/14/2018 3:01 PM CST Pt calling back in. Transferred to triage per request. NCILIATION CLERK * Jacquelyn Jaquez CNA - 04/14/2018 11:05 AM CST Symptoms Describe your symptoms (if pain, include location): Odor, discharge When did they start? 2 weeks Additional comments (related to the above concern): Pt has had past BV infection. Pt unavailable to speak 11:30-1:00pm today 04/14/18 If a prescription is needed, patient would like it filled at the pharmacy listed in [email or web address]. (Verify the pharmacy patient would like to use for this request is highlighted in blue in Pharmacy Selection under [email or web address]) Is it okay to leave a detailed message on your voicemail? Yes (Advise caller that the PN call back number will end with [phone] or unknown) For urgent symptoms: Please route and transfer to: Triage Pool (high priority) For routine symptoms: Please route to: Triage Pool (only transfer if caller insists) NCILIATION CLERK documented in this encounter Plan of Treatment Not on file documented as of this encounter Visit Diagnoses Not on filedocumented in this encounter Additional Health Concerns Infection Onset Date Last Indicated Resolved Time R/O COVID19 02/08/2021 02/08/2021 02/09/2021 10:0 6 AM RECONCILIATION CLERK R/O COVID19 02/17/2021 02/17/2021 02/17/2021 11:3 2 PM RECONCILIATION CLERK documented as of this encounter Care Teams Infantryman Relationship Specialty Start Date End Date Kaykay Duarte, HEARING DOG TRAINER, POWER TRUCK DRIVER [address] [place] [address] PCP - General Nurse Practitioner 10/25/21 documented as of this encounter
--- OUTSIDE RECORDS SUMMARY | 2024-01-08 09:55 | XMS_ITS | Encounter Summary ---
Author Organization [facility] Address [address] [place] [id number] Care Team Providers Care Ldr Rn Name Role Phone Edda Agudelo PA-C Primary Care Provider + [phone] Magno Wood MD Unavailable [phone] [place] [facility] Provider Unavailable Parth Ellis MD Unavailable [phone] Tati Ayala MD Unavailable [phone] Khris Btut MD Unavailable [phone] MorelosRoderick nunes MD Unavailable [phone] Roderick Morelos MD Unavailable [phone] Magno Wood MD Unavailable [phone] Sophie Ocasio Unavailable [phone] Parth Ellis MD Unavailable [phone] MorelosRoderick nunes MD Unavailable [phone] Henny Rosales APRN UNIX DEVELOPER Unavailable [phone] [facility] Primary Care Pr ovider Sharee Oliva RD Unavailable [phone] Kaykay Duarte NP Primary Care Provider Christiane Rodríguez MD Unavailable [phone] Luis A Escobedo MD Unavailable + Chely Fernandez PA-C Unavailable [phone] Cadena Jing Susie [facility] Unavailable + [phone] Radha Lopez [facility] Unavailable [phone] Luis A Escobedo MD Unavailable [phone] Geri Loza PA-C Unavailable [phone] Yesenia Raina [facility] Unavailable Encounter Details Date Type Department Care Team (Late st Contact Info) Description 12/16/2005 Office Visit-[facility] [address] [facility] [address] [place] [address] Reji Li MD [address] [facility] [address] [place] [address] Social History Tobacco Use Types [...] BO[place] Referring Clinic: [facility] CURRENT DIAGNOSES 1. - Hypercholesterolemia, 272.0 [...] lives with and children; Place of - [place]; Hours Worked - 30 hours per week; [...] valve. She just had cholesterols done at [facility] yesterday. She will call us next [...] valve. She just had cholesterols done at [facility] yesterday. She will call us next week for the results to determine if weneed to increase her Vytorin. Total consult time: 25 minutes, greater than 50% counseling. Reji Li M.D./murtaza-avelina/[id number] cc:Luis A Vincent M.D. 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 Rule Out COVID-19 06/19/2021 06/19/2021 06/19/2021 1:37 AM CDT Rule Out COVID-19 10/29/2021 10/29/2021 10/29/2021 1:07 AM CDT documented as of this encounter Care Teams Ldr Rn Relationship Specialty Start Date End Date Edda Agudelo PA-C [facility] [address] [place] [address] PCP - General 05/04/12 10/11/19 Ernestina Martini [address] [facility] [address] [place] [address] PCP - General Family Practice 10/12/19 08/18/22 [facility] [address] [place] [address] PCP - General 08/19/22 10/14/22 [place] [address] [place] [address] PCP - General 10/15/22 Magno Wood MD [address] [facility] [address] [place] [address] Otolaryngology 05/29/15 08/02/17 Parth Ellis MD [address] [address] Assigned Heart and Vascular Provider 01/13/20 12/13/21 Tati Ayala MD [address] [place], [place] [address] Assigned Endocrinology Provider 01/13/20 12/29/20 Khris Butt MD [address] [facility] [address] [place] [address] Assigned Heart and Vascular Provider 12/14/21 02/14/22 Roderick Morelos MD [address] [place] [address] Cardiovascular Disease 02/03/22 Roderick Morelos MD [address] [place] [address] Assigned Heart and Vascular Provider 02/15/22 07/18/22 Magno Wood MD [address] [place] [address] [address] [place], [place] [phone] Otolaryngology 02/21/22 Sophie Ocasio AuD [address] [place], [place] [address] Farm Equipment Engineer Audiology 02/21/22 Parth Ellis MD [address] [place] [address] Assigned Heart and Vascular Provider 07/19/22 07/25/22 Roderick Morelos MD [address] [place] [id number] Assigned Heart and Vascular Provider 07/26/22 08/08/22 Henny Rosales, FOUNTAIN HELPER UNIX DEVELOPER [address] [place] [phone] Assigned Heart and Vascular Provider 08/09/[address] [place], [place] [address] Registered Dietitian Dietitian, Registered 09/02/22 Christiane Rodríguez MD [address] [facility] [address] [place], [place] [address] Otolaryngology 11/12/22 Luis A Escobedo MD [address] [place] [address] [address] [place], [place] [phone] Assigned Surgical Provider 11/01/22 11/28/22 Chely Fernandez PA-C [address] [place] [address] [phone] Assigned Surgical Provider 11/29/22 02/06/23 Jing Cadena APRN SEC REPORTING CONSULTANT [address] [place] [address] [address] [place], [place] [phone] Clinical Nurse Specialist Anesthesiology 01/15/23 Radha Lopez, [facility] [address] [place] [address] [phone] Pharmacist Pharmacist 01/16/23 Luis A Escobedo MD [address] [place] [address] [id number] Assigned Surgical Provider 02/07/23 04/15/23 Geri Loza PA-C [address] [place] [address] [id number] Assigned Surgical Provider 04/16/23 Raina Patterson APRN UNIX DEVELOPER [address] [facility] [address] [place] [id number] Nurse Practitioner Cardiovascular Disease 05/11/23 documented as of this encounter
--- NOTE | 2024-01-08 10:01 | ED.FEVER ---
HPI - Fever General Time Seen by Provider: 10:01 Date Seen: 01/08/24 Chief Complaint: Fever Stated Complaint: Post-Op Complications Time Seen by Provider: 01/08/24 10:00 Source: patient, RN notes reviewed and old records reviewed Mode of arrival: ambulatory Limitations: no limitations History of Present Illness HPI Narrative: 53-year-old female who presents today with fever. Patient notes fever up to 102.5 last night. Also notes poor pain control. Has had urinary frequency and urgency but no dysuria. Denies nausea, vomiting, diarrhea. Has not taken anything for fever, taking oxycodone for pain, most recently at 0800. Related Data Home Medications ?Medication ?Instructions ?Recorded ?Confirmed ropinirole 2 mg tablet 4 mg PO QPM 09/10/22 01/06/24 rosuvastatin 10 mg tablet 10 mg PO HS 01/06/24 01/06/24 Previous Rx's ?Medication ?Instructions ?Recorded gabapentin 600 mg tablet 600 mg PO DAILY #90 tabs 12/23/23 levothyroxine 200 mcg tablet 200 mcg PO DAILY #90 tabs 12/23/23 acetaminophen 500 mg capsule 500 - 1,000 mg (1 - 2 x 500 mg) PO 01/07/24 Q6H PRN #100 caps aspirin 81 mg tablet,delayed 81 mg PO BID #50 tabs 01/07/24 release hydromorphone 2 mg tablet 2 mg PO Q6H PRN pain #20 tabs 01/07/24 hydroxyzine pamoate 25 mg capsule 25 - 50 mg (1 - 2 x 25 mg) PO Q6H 01/07/24 PRN postoperative pain #60 caps oxycodone 5 mg tablet 2.5 - 10 mg (0.5 - 2 x 5 mg) PO 01/07/24 Q4-6H PRN pain #42 tabs rivaroxaban 10 mg tablet 10 mg PO DAILY #4 tabs 01/07/24 sennosides 8.6 mg-docusate sodium 1 - 2 tab-cap (1 - 2 x 8.6-50 mg) 01/07/24 50 mg tablet (Senna-S) PO BID PRN constipation #30 tabs Allergies Allergy/AdvReac Type Severity Reaction Status Date / Time No Known Drug Allergies Allergy Verified 12/23/23 13:04 [facility] Medical History (Updated 01/08/24 @ 12:00 by Kieran Portillo MD) Thyroid activity decreased (10/02/14) ?E03.9 - Hypothyroidism, unspecified (ICD-10) Restless leg syndrome, familial (05/29/14) ?G25.81 - Restless legs syndrome (ICD-10) Panic attacks (10/16/14) ?F41.0 - Panic disorder [episodic paroxysmal anxiety] (ICD-10) Other and unspecified hyperlipidemia (08/14/09) ?E78.5 - Hyperlipidemia, unspecified (ICD-10) Unspecified examination (08/14/09) ?Z00.00 - Encounter for general adult medical examination without abnormal findings (ICD-10) Moderate persistent asthma with acute exacerbation (06/12/16) ?J45.41 - Moderate persistent asthma with (acute) exacerbation (ICD-10) Irregular heart beat (08/14/09) ?I49.9 - Cardiac arrhythmia, unspecified (ICD-10) GERD (gastroesophageal reflux disease) (08/14/09) ?K21.9 - Gastro-esophageal reflux disease without esophagitis (ICD-10) Chronic low back pain ?M54.50 - Low back pain, unspecified (ICD-10) ?G89.29 - Other chronic pain (ICD-10) SVT (supraventricular tachycardia) ?I47.10 - Supraventricular tachycardia, unspecified (ICD-10) History of diabetes mellitus ?Z86.39 - Personal history of other endocrine, nutritional and metabolic disease (ICD-10) Moderate persistent asthma ?J45.40 - Moderate persistent asthma, uncomplicated (ICD-10) Panic attacks ?F41.0 - Panic disorder [episodic paroxysmal anxiety] (ICD-10) Surgical History (Updated 01/07/24 @ 15:55 by Carol Rodríguez~[facility], [facility]) History of total right hip arthroplasty (01/06/24) ?Z96.641 - Presence of right artificial hip joint (ICD-10) History of colposcopy ?Z98.890 - Other specified postprocedural states (ICD-10) History of cardiac radiofrequency ablation ?Z98.890 - Other specified postprocedural states (ICD-10) History of gastric bypass (2022) ?Z98.84 - Bariatric surgery status (ICD-10) H/O wisdom tooth extraction ?K08.409 - Partial loss of teeth, unspecified cause, unspecified class (ICD-10) History of excision of pilonidal cyst ?Z98.890 - Other specified postprocedural states (ICD-10) History of tonsillectomy and adenoidectomy (1973) ?Z90.89 - Acquired absence of other organs (ICD-10) History of tympanomastoidectomy (05/20/05) ?Z98.890 - Other specified postprocedural states (ICD-10) Family History Mother Breast cancer Father Stroke Social History What is your current living situation?: I presently have a place to live Problems where you live: no known problems In the past 12 months, utilities in danger of being shut off: no In past 12 months, lack of transportation kept you from medical appts, meetings, work, or getting things needed for daily living: no In the past 12 mos, have been you worried that your food would run out before you had money to buy more?: never true In the past 12 mos, the food you bought just didn't last and you didn't have money to buy more?: never true Smoking Status: Never smoker Do you use any of these nicotine containing products: None Second hand tobacco smoke exposure: No How often do you have a drink containing alcohol: 2-4 times a month How many standard drinks containing alcohol do you have on a typical day: 1 or 2 How often do you have six or more drinks on one occasion: Never AUDIT-C Alcohol total score: 2 Non-prescribed substance use: denies use Caffeine: Yes How often does anyone, including family, friends and others, physically hurt you: never How often does anyone, including family, friends and others, insult or talk down to you: never How often does anyone, including family, friends and others, threaten you with harm: never How often does anyone, including family, friends and others, scream or curse at you: never service: No Exam Narrative Exam Narrative: General: Well-developed and well-nourished, no acute distress Head: Atraumatic and normocephalic Eyes: Pupils are equal reactive, extraocular motions intact, conjunctiva clear ENT: External nose and ears are normal, posterior pharynx without erythema or exudate Neck: No midline cervical tenderness, full spontaneous range of motion the neck, trachea midline, no adenopathy Heart: Regular rate and rhythm no murmurs or thrills Lungs: Clear to auscultation bilaterally without wheezes or crackles Abdomen: Soft, nontender, nondistended with active bowel sounds Musculoskeletal: No tenderness, deformity, or edema Neurologic: Awake, alert, and oriented x3, no gross focal neurologic deficits, cranial nerves intact as tested Psych: Mood and affect are appropriate Skin: Right hip- dressing intact, erythema tracking posterior to this with some warmth Const Vital Signs, click to edit/add: Vital Signs - 24 hr 01/08/24 09:55 01/08/24 09:56 01/08/24 09:59 Temperature 98.5 F Pulse Rate 84 Respiratory Rate 20 Blood Pressure 123/64 Blood Pressure [Right Upper Arm] 123/64 Pulse Oximetry 92 92 Oxygen Delivery Method Room Air 01/08/24 10:00 01/08/24 10:15 01/08/24 10:33 Temperature Pulse Rate 88 83 80 Respiratory Rate Blood Pressure Blood Pressure [Right Upper Arm] Pulse Oximetry 91 94 95 Oxygen Delivery Method 01/08/24 10:52 01/08/24 11:05 01/08/24 11:05 Temperature Pulse Rate 81 76 Respiratory Rate 18 Blood Pressure Blood Pressure [Right Upper Arm] Pulse Oximetry 97 96 Oxygen Delivery Method 01/08/24 11:30 01/08/24 11:31 Temperature Pulse Rate 78 76 Respiratory Rate Blood Pressure 118/63 Blood Pressure [Right Upper Arm] Pulse Oximetry 97 Oxygen Delivery Method Course Course ED Course: Patient seen examined, reviewed most recent admission from full January 05- which was for for right hip replacement. Patient presents today with fever, reported 102.5 at home, patient afebrile in the department. She is noted to have oxygen saturation 91-95% on room air. No abdominal tenderness. Mild redness tracking from her hip incision. Consider atelectasis, pneumonia, urinary tract infection. Patient had rest for pulmonary embolism given recent procedure but is anticoagulated, however with slightly low oxygen saturation concern for PE or atelectasis. Labs are ordered along with CT PE study. Consider doing D-dimer but as patient is anticoagulated and recent surgery, this likely is to be elevated and patient is high risk for PE. Also need to evaluate for other intrathoracic causes of fever or hypoxia Reevaluation(s) Time of Reevaluation #1: 11:06 Reevaluation #1: Labs independently interpreted by me with normal white blood cell count, hemoglobin 11.4 which is stable for postoperative, basic panel with sodium 133, potassium 3.5. Care was discussed with Dr. Miranda who evaluated the patient in the emergency department, does not feel that incision or surgical site infection is present. Time of Reevaluation #2: 11:30 Reevaluation #2: The labs independently interpreted by me with normal urinalysis. CT scan of the chest independently interpreted by me does not demonstrate acute pulmonary embolism or infiltrate. Time of Reevaluation #3: 11:52 Reevaluation #3: Reviewed radiology interpretation of CT scan which agrees with no acute intrathoracic process, does note a 5 mm pulmonary nodule of the right middle lobe as well as findings suggestive of air trapping. Patient is low risk for developing pulmonary malignancy in this does not need follow-up. Respiratory panel negative. Patient rechecked and reviewed tests, she has an incentive spirometer home and should continue to use this, stable for discharge. Vital Signs Vital signs: Initial Vital Signs Temperature 98.5 F 01/08/24 09:55 Temperature Source Temporal Artery Scan 01/08/24 09:55 Pulse Rhythm Regular 01/08/24 09:55 Respiratory Rate 20 01/08/24 09:55 Blood Pressure 123/64 01/08/24 09:55 Blood Pressure Mean 83 01/08/24 09:55 Blood Pressure Position Supine 01/08/24 09:55 Pulse Oximetry 92 01/08/24 09:55 Oxygen Delivery Method Room Air 01/08/24 09:55 Vital Signs Temperature 98.5 F 01/08/24 09:55 Respiratory Rate 20 01/08/24 09:55 Blood Pressure 123/64 01/08/24 09:55 Pulse Oximetry 92 01/08/24 09:55 Oxygen Delivery Method Room Air 01/08/24 09:55 Temperature 98.5 F 01/08/24 09:55 Pulse Rate 76 01/08/24 11:31 Respiratory Rate 18 01/08/24 11:05 Blood Pressure 118/63 01/08/24 11:31 Pulse Oximetry 97 01/08/24 11:31 Oxygen Delivery Method Room Air 01/08/24 09:55 Medications Administered Medications: Discontinued Medications Generic Name Dose Route Start Last Admin Trade Name Sergio PRN Reason Stop Dose Admin Hydromorphone HCl 0.5 mg 01/08/24 10:43 01/08/24 10:56 Hydromorphone 0.5 Mg/0.5 Ml Inj IVP 01/08/24 10:44 0.5 mg ONCE ONE Administration MDM - Fever Lab Data Labs: Lab Results 01/08/24 01/08/24 Range/Units 10:30 Unknown WBC 9.28 (4.50-11.00) K/uL RBC 4.08 (4.00-5.20) m/uL Hgb 11.4 L (12.0-16.0) gm/dL Hct 35.8 (33.0-51.0) % MCV 88 (80-100) fL MCH 28 (26-34) pg MCHC 32 (32-36) gm/dL RDW Coeff of Lucille 13.6 (11.5-15.5) % Plt Count 172 (140-440) K/uL Neut % (Auto) 71.5 (42.0-72.0) % Lymph % (Auto) 15.0 L (20-44) % [place] % (Auto) 12.3 H (0.0-11.0) % Eos % (Auto) 0.4 (0.0-7.0) % Baso % (Auto) 0.4 (0.0-3.0) % Neut # (Auto) 6.63 (1.7-7.0) K/uL Lymph # (Auto) 1.40 (0.90-2.90) K/uL [place] # (Auto) 1.10 H (0.00-0.90) K/UL Eos # (Auto) 0.04 (0.00-0.50) K/uL Baso # (Auto) 0.04 (0.00-0.30) K/uL Abs Immat Gran (auto) 0.04 (0.00-0.30) K/uL Imm/Tot Granulo (auto) 0.4 % Sodium 133 L (135-149) mmol/L Potassium 3.5 L (3.6-5.1) mmol/L Chloride 99 (96-114) mmol/L Carbon Dioxide 27 (20-32) mmol/L Anion Gap 7 (7-15) mEq/L BUN 9 (7-30) mg/dL Creatinine 0.7 (0.5-1.5) mg/dL Estimated Creat Clear 85.01 Estimated GFR 102 ml/min Glucose 147 H (60-115) mg/dL Calcium 9.0 (8.4-10.6) mg/dL Urine Color Yellow (Yellow) Urine Appearance Clear (Clear) Urine pH 6.5 (5.0-8.5) Ur Specific [place] 1.020 (1.000-1.030) Urine Protein Trace A (Negative) Urine Glucose (UA) Negative (Negative) Urine Ketones Negative (Negative) Urine Blood 2+ A (Negative) Urine Nitrite Negative (Negative) Urine Bilirubin Negative (Negative) Urine Urobilinogen 1.0 (0.2-1.0) Ur Leukocyte Esterase Negative (Negative) Urine RBC 0-2 (0-2) Urine WBC 0-2 (0-5) Ur Squamous Epith Cells Few (None-Few) Urine Bacteria Few A (None) SARS-CoV-2 (PCR) Negative SARS-CoV-2 (Negative) Influenza Type A (PCR) Negative PCR FLU A (Negative) Influenza Type B (PCR) Negative PCR FLU B (Negative) RSV (PCR) Negative PCR RSV (Negative) Discharge Plan Discharge Clinical Impression: Fever postop, Pulmonary nodule Patient Disposition: Home, Self-Care Condition: Stable Instructions: Fever in Adults (ED) Additional Instructions: Take Tylenol as needed for fever If fever continues more than 48 hours return to the emergency department There is a small nodule on your right lung. As you are low risk, this does not need follow-up Activity Level: Activity as Tolerated Discharge Diet: Regular Prescriptions: No Action ropinirole 2 mg tablet 4 mg PO QPM levothyroxine 200 mcg tablet 200 mcg PO DAILY Qty: 90 0RF gabapentin 600 mg tablet 600 mg PO DAILY Qty: 90 3RF rosuvastatin 10 mg tablet 10 mg PO HS sennosides-docusate sodium [Senna-S] 8.6-50 mg tablet 1 - 2 tab-cap PO BID PRN (Reason: constipation) Qty: 30 0RF Rx Instructions: Hold medication if experiencing loose stools. aspirin 81 mg tablet,delayed release (DR/EC) 81 mg PO BID Qty: 50 0RF Rx Instructions: Medication to help prevent blood clots postoperatively; take TWICE daily. acetaminophen 500 mg capsule 500 - 1,000 mg PO Q6H MDD 4000mg PRNQty: 100 0RF oxycodone 5 mg tablet 2.5 - 10 mg PO Q4-6H MDD 6 PRN (Reason: pain) Qty: 42 0RF Rx Instructions: Take as needed for postop pain: 2.5mg mild pain, 5mg moderate, 10mg severe pain 7-10/10. Wean as tolerated. hydroxyzine pamoate 25 mg capsule 25 - 50 mg PO Q6H PRN (Reason: postoperative pain) Qty: 60 0RF rivaroxaban 10 mg tablet 10 mg PO DAILY Qty: 4 0RF Rx Instructions: Medication for deep vein clot prevention post surgery. Complete this medication before starting Aspirin. hydromorphone 2 mg tablet 2 mg PO Q6H MDD 4 tabs a day PRN (Reason: pain) Qty: 20 0RF Follow Up/Referrals: Provider,Not a Local [Primary Care Provider] - Stand Alone Forms: [facility] Info Instructions
--- NOTE | 2024-01-08 10:19 | CRLHL7_ITS ---
For Patients: As a result of the Century Cures Act, medical imaging exams and procedure reports are released immediately into your electronic medical record. You may view this report before your referring provider. If you have questions, please contact your health care provider. Indication: Postop fever and hypoxia Technique: CTA chest, pulmonary embolism protocol, utilizing 95 mL Isovue 370 Comparison: None Findings: No appreciable thyroid nodules. No thoracic lymphadenopathy. The heart is within normal limits in size. No CT evidence of right heart strain. No pericardial effusion. Minimal coronary artery calcifications. The thoracic aorta and pulmonary artery are normal in caliber. There is no pulmonary embolism. No focal airspace consolidation, pleural effusion, or pneumothorax. Faint mosaic attenuation of the lung parenchyma, suggestive of air trapping. Trace left basilar linear atelectasis. Solid 5 millimeter, subpleural pulmonary nodule in the right middle lobe. The airways are clear. The visualized upper abdomen is without acute abnormality. Well-circumscribed low-density lesion in the left hepatic lobe measuring 3.4 centimeters, favored to represent a benign cyst. Postsurgical changes of Juan F-en-Y gastric bypass. The soft tissues and osseous structures are unremarkable. Impression: 1. No CT evidence of an acute process involving the thorax; specifically, no pulmonary embolism. 2. Solid 5 millimeter, subpleural pulmonary nodule in the right middle lobe. If patient is at high risk for developing lung malignancy recommend repeat CT chest in 1 year; otherwise, no routine follow-up imaging is needed. Please note that all CT scans at this facility use dose modulation, iterative reconstruction, and/or weight-based dosing when appropriate to reduce radiation dose to as low as reasonably achievable. Dictated by Herson Zimmerman MD @ 01/08/2024 11:35:10 AM (Electronically Signed)
--- OUTSIDE RECORDS SUMMARY | 2024-01-08 10:25 | XMS_ITS | Clinical Summary ---
Author Organization [place] Address [address] [place] [address] Care Team Providers Care Catering Associate Name Role Phone Roderick Morelos MD Unavailable [phone] Magno Wood MD Unavailable [phone] Sophie Ocasio AuD Unavailable Henny Rosales AUTOMOTIVE DESIGN LAYOUT DRAFTER INSPECTOR FLOOR SUB ASSEMBLY Unavailable Sharee Oliva RD Unavailable [phone] Kaykay Duarte NP Primary Care Provider Christiane Rodríguez MD Unavailable Jing Cadena AUTOMOTIVE DESIGN LAYOUT DRAFTER GAS METER INSTALLER HELPER Unavailable [phone] Radha Lopez [facility] Unavailable [phone] Geri LozaC Unavailable Raina Patterson APRN INSPECTOR FLOOR SUB ASSEMBLY Unavailable Allergies Active Allergy Reactions Criticality Noted [...] & Plan: S/p gastric sleeve 08/09/2020 at [facility]. No post op complications. Weight prior to [...] te st positive 08/05/2017 Overview: Overview: 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 Gastric sleeve was completed 08/09/[address] [facility] [address] Barillas. Starting weight 338lb, BMI 56.25. She felt that instantly did not see expected weight loss results. Per chart review had lost 8lbs by 3 months post op and has followed up with [facility] since. She has lost 38lbs since surgery, [...] Care Team Description 10/18/[address] [facility] Heart [address] [address] Radha Lopez [facility] from Last 3 Months Immunizations [...] Comments Blood Pressure 124/78 03/24/2023 10:20 AM SOFTWARE DESIGNER Pulse 70 03/24/2023 10:20 AM SOFTWARE DESIGNER Temperature 36.8 ??C (98.2 ??F) 03/24/2023 10:[address] Respiratory Rate 16 03/24/2023 10:20 AM SOFTWARE DESIGNER Oxygen Saturation 99% 03/24/2023 10:20 AM SOFTWARE DESIGNER Inhaled Oxygen Concentration - - Weight 120.7 kg (266 lb) 04/23/2023 11:55 AM SOFTWARE DESIGNER Height 167.6 cm (5' 6) 04/23/2023 11:55 AM SOFTWARE DESIGNER Body Mass Index 42.93 04/23/2023 11:55 AM SOFTWARE DESIGNER Plan of Treatment Health Maintenance Due Date [...] BRIAN PATHWAY SURGERY IS SCHEDULED Care Plan [facility] PATHWAY SURGERY IS SCHEDULED No Luis A [...] FREE T4 REFLEX Add-On 02/28/2021 1:00 AM SOFTWARE DESIGNER 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 [...] with free T4 reflex (02/28/2021 1:00 AM SOFTWARE DESIGNER) TSH 0.86 0.40 - 4.00 mU/L 03/01/2021 4:13 PM SOFTWARE DESIGNER LABORATORY Blood STRUCTURE OF RIGHT UPPER LIMB / Unknown Venipuncture / Unknown 02/28/2021 1:00 AM SOFTWARE DESIGNER 02/28/2021 1:08 AM SOFTWARE DESIGNER Parth Ellis MD LAB - BLOOD ORD ERABLES LABORATORY [facility] [address] (1st floor, no room number) [place] [address], [facility] [phone] from Last 3 Months or Most Recently Relevant to Health Maintenance Additional Health Concerns Active Problems Noted Date Diagnosed Date BRIAN PATHWAY SURGERY IS SCHEDULED 10/15/2022 Advance Directives For more information, please contact: [phone] * Full Code (Latest Code Status on [...] 12:01 PM 05/01/2018 3:45 AM Care Teams Catering Associate Relationship Specialty [place] [address] [place] [address] PCP - General 10/15/22 Roderick Morelos MD [address] [place], [place] [address] Cardiovascular Disease 02/03/22 Magno Wood MD 420 [facility] 396 [place], [place] [address] Otolaryngology 02/21/22 Sophie cOasio AuD [address] [place] [address] Field Placement Director Audiology 02/21/22 Henny Rosales APRN INSPECTOR FLOOR SUB ASSEMBLY [address] [place] [address] Assigned Heart and Vascular Provider 08/09/[address] [place], [place] 758835 Registered Dietitian Dietitian, Registered 09/02/22 Christiane Rodríguez MD 420 [facility] 396 [place], [place] 385825 Otolaryngology 11/12/22 Jing Cadena AUTOMOTIVE DESIGN LAYOUT DRAFTER GAS METER INSTALLER HELPER 420 [facility] 450 [place], [place] 632085 Clinical Nurse Specialist Anesthesiology 01/15/23 Radha Lopez, [facility] 9 [place], [place] 509635 Pharmacist Pharmacist 01/16/23 Geri Loza PA-C 9 [place], [place] 581735 Assigned Surgical Provider 04/16/23 Raina Patterson APRN INSPECTOR FLOOR SUB ASSEMBLY [address] [place] [address] Nurse Practitioner Cardiovascular Disease 05/11/23
--- OUTSIDE RECORDS SUMMARY | 2024-01-08 10:25 | XMS_ITS | Encounter Summary ---
Author Organization [place] Address [address] [place] [address] Care Team Providers Care Clerical Adjuster Name Role Phone Roderick Morelos MD Unavailable [phone] Magno Wood MD Unavailable [phone] Sophie Ocasio AuD Unavailable Henny Rosales PACKAGE CHECKER SWEEPER CLEANER INDUSTRIAL Unavailable Sharee Oliva RD Unavailable [phone] Kaykay Duarte NP Primary Care Provider Christiane Rodríguez MD Unavailable [phone] Jing Cadena PACKAGE CHECKER ORACLE FINANCIALS CONSULTANT Unavailable Radha Lopez [facility] Unavailable [phone] Geri LozaC Unavailable Raina Patterson APRN SWEEPER CLEANER INDUSTRIAL Unavailable [phone] Encounter Details Date Type Department Care Team (Late st Contact Info) Description 04/23/2023 [facility] [address] 4th [place] [address] Kang Griffiths Social History Tobacco [...] documented as of this encounter Care Teams Clerical Adjuster Relationship Specialty Start Date End Date Kaykay Duarte ELECTRONIC ASSEMBLER [address] [place] [address] PCP - General 10/15/22 Roderick Morelos MD [address] [place] [address] Cardiovascular Disease 02/03/22 Magno Wood MD 420 [facility] [address] [place], [place] 150[address] Otolaryngology 02/21/22 Sophie Ocasio AuD [address] [place], [place] 6[address] [facility] Audiology 02/21/22 Henny Rosales APRN SWEEPER CLEANER INDUSTRIAL [address] [place] [id number] Assigned Heart and Vascular Provider 08/09/[address] [place], [place] 78[address] Registered Dietitian Dietitian, Registered 09/02/22 Christiane Rodríguez MD 420 [facility] 396 [place], [place] [address] Otolaryngology 11/12/22 Jing Cadena APRN ORACLE FINANCIALS CONSULTANT 420 [facility] [address] [place], [place] [address] Clinical Nurse Specialist Anesthesiology 01/15/23 Radha Lopez, [facility] [address] [place] [address] 183455 Pharmacist Pharmacist 01/16/23 Geri Loza PA-C [address] [place] [address] 897785 Assigned Surgical Provider 04/16/23 Raina Patterson APRN SWEEPER CLEANER INDUSTRIAL [address] [place] [address] Nurse Practitioner Cardiovascular Disease 05/11/23 documented as of this encounter
--- OUTSIDE RECORDS SUMMARY | 2024-01-08 10:25 | XMS_ITS | Encounter Summary ---
Author Organization [place] Address [address] [place] [address] Care Team Providers Care Willow Machine Tender Name Role Phone Roderick Morelos MD Unavailable [phone] Magno Wood MD Unavailable [phone] Sophie Ocasio AuD Unavailable Henny Rosales SANITATION LABORER MEDICAL SERVICE REPRESENTATIVE Unavailable Sharee Olia[address] RD Unavailable [phone] Kaykay Duarte NP Primary Care Provider [phone] Christiane Rodríguez MD Unavailable [phone] Jing Cadena SANITATION LABORER HANDLE ROUNDER OPERATOR Unavailable [facility] Unavailable [phone] Geri Loza PA-C Unavailable Raina Patterson APRN MEDICAL SERVICE REPRESENTATIVE Unavailable Encounter Details Date Type Department Care Team (Late st Contact Info) Description 10/18/2023 [facility] [address] [address] Radha Lopez, [address] [address] Social History Tobacco Use Types [...] documented as of this encounter Care Teams Willow Machine Tender Relationship Specialty Start Date End Date Kaykay Duarte HAZARDOUS MATERIALS DRIVER [address] [place] [address] PCP - General 10/15/22 Roderick Morelos MD [address] [place] [address] Cardiovascular Disease 02/03/22 Magno Wood MD [address] [place] [address] 916295 Otolaryngology 02/21/22 Sophie Ocasio AuD [address] [place], [place] 520[address] Team Physician Audiology 02/21/22 Henny Rosales APRN MEDICAL SERVICE REPRESENTATIVE [address] [place] [phone] Assigned Heart and Vascular Provider 08/09/[address] [place] [address] Registered Dietitian Dietitian, Registered 09/02/22 Christiane Rodríguez MD [address] [place] [address] 396 [place], [place] 8437[address] Otolaryngology 11/12/22 Jing Cadena APRN HANDLE ROUNDER OPERATOR [address] [place] [address] 450 [place], [place] [address]635 Clinical Nurse Specialist Anesthesiology 01/15/23 Radha Lopez, [facility] [address] [place] [address] Pharmacist Pharmacist 01/16/23 Geri Loza PA-C [address] [place] [address] [phone] Assigned Surgical Provider 04/16/23 Raina Patterson APRN MEDICAL SERVICE REPRESENTATIVE [address] [facility] [address] [place] 948385 Nurse Practitioner Cardiovascular Disease 05/11/23 documented as of this encounter
--- OUTSIDE RECORDS SUMMARY | 2024-01-08 10:25 | XMS_ITS | Clinical Summary ---
Author Organization [facility] Address [place], [place] [address] Care Team Providers Care Business Management Manager Name Role Phone Brandan Burleson MD Unavailable [phone] Pcp, No Primary Care Provider Unavailabl e [...] solution (FLONASE)Indications :Purulent postnasal drainage Inhale 1 [place] into both nostrils 2 times daily. 1 [...] Type Department Care Team Description 11/26/2023 Telephone [facility] [address] [place] [address] Jose Enrique Ricardo PA Concerns (ibuprofen and tylenol not effective for ) 11/25/2023 Telephone [facility] [address] [place] [address] Dionisio Agudelo MD Surgery Scheduled 11/20/2023 9:50 AM CDT Office Visit [facility] [address] [place] [address] Dionisio Agudelo MD Hip Pain/problem (Right Hip Pain) 11/20/[address] [facility] Joint Replacement [facility] [address] [place] [address] Dionisio Agudelo MD 11/20/2023 Travel 11/15/2023 3:42 PM CDT - 11/15/2023 6:12 PM CDT Emergency [address] [address] Monique Ott PA Pelvic joint pain, right [...] age 21-65 05/21/2018 6 ([facility]), 05/22/2011 Zoster (shingles) series for age 50+ (1 of 2) 2018 Lipids for age 45-75 02/10/2021 02/11/2016, 06/29/19 15 COVID-19 vaccine series ( season) 2023 11/28/2020, 06/19/2020 Influenza for age 50-64 11/22/2023 12/22/19 16, 01/01/2015, 01/16/2014, Additional history exists Pneumococcal series for age 6-64 Aged Out No longer eligible based on patient's age to complete this topic Medical Devices Implanted Type Area Metal Hardener Device Identifier Shelf Expiration Date Model / Serial / Lot Prosth Shiva [id number] - [id number] Implanted:Qty: 1 on 05/20/2005 at [facility] Implants Right: Ear G[employer]US E[employer] 61# / / Procedures Procedure Name Priority Date/Time Associated Diagnosis Comments XR ANKLE 3 VIEWS RIGHT STAT 11/15/2023 5:15 PM CDT XR KNEE 3 VIEWS RIGHT STAT 11/15/2023 5:13 PM CDT XR HIP 2 OR 3 VIEWS W PELVIS RIGHT STAT 11/15/2023 5:12 PM CDT LIPID PANEL W REFLEX MEASURED LDL Routine 02/11/2016 2:52 PM INSPECTOR PRECISION ASSEMBLY Hyperlipidemia, unspecified hyperlipidemia type XR MAMMO RAVI BILAT SCREEN Routine 01/30/2016 9:52 AM INSPECTOR PRECISION ASSEMBLY Visit for screening mammogram from Last 3 [...] W REFLEX MEASURED LDL (02/11/2016 2:52 PM INSPECTOR PRECISION ASSEMBLY) CHOLESTEROL,TOTAL 271(H) 100 - 199 mg/dL 02/11/2016 8:04 PM INSPECTOR PRECISION ASSEMBLY [facility] TRIGLYCERIDES 178(H) <150 mg/dL 02/11/2016 8:04 PM INSPECTOR PRECISION ASSEMBLY [facility] HDL CHOLESTEROL 49 >40 mg/dL 6 8:04 PM INSPECTOR PRECISION ASSEMBLY [facility] NON-HDL CHOLESTEROL 222(H) <145 mg/dl 02/11/2016 8:04 PM INSPECTOR PRECISION ASSEMBLY [facility] CHOL/HDL RATIO 5.53(H) <4.50 02/11/2016 8:04 PM INSPECTOR PRECISION ASSEMBLY [facility] LDL CHOLESTEROL 186(H) <=130 mg/dL 02/11/2016 8:04 PM INSPECTOR PRECISION ASSEMBLY [facility] LAB[facility]ORY PATIENT STATUS NON-FASTI NG 02/11/2016 8:04 PM INSPECTOR PRECISION ASSEMBLY [facility] Blood BLOOD SPECIMEN / Unknown Venipuncture / Unknown 02/11/2016 2:52 PM INSPECTOR PRECISION ASSEMBLY 02/11/2016 2:52 PM INSPECTOR PRECISION ASSEMBLY Edda [facility] [address] [place] [address], [place] * XR MAMMO RAVI SCREEN BILAT (01/30/2016 9:52 AM INSPECTOR PRECISION ASSEMBLY) Anatomical Region Laterality Modality BREASTS, Breast Left, Breast Right Bilateral Mammography Impressions 01/30/2016 11:17 AM INSPECTOR PRECISION ASSEMBLY ??There is no radiographic evidence for malignancy. ??Recommend annual mammograms. A lay language report of this examination will be provided to the patient. MAMMOGRAM ASSESSMENT: ??ACR 2 Benign Narrative 01/30/2016 11:17 AM INSPECTOR PRECISION ASSEMBLY XR MAMMO RAVI SCREEN JANINE [[id number]] CLINICAL HISTORY: ??This is an asymptomatic 45 y.o. patient. INDICATION FOR EXAM: Mammogram Screening. TECHNIQUE: CC & MLO views were obtained. ??This digital study was evaluated with the assistance of Computer-Aided Detection. Breast Tomosynthesis was used in interpretation. COMPARISON FILMS: Yes 02/10/15 [facility] 01/18/14 [facility] FINDINGS: ??Mammographically, the breast tissue has scattered fibroglandular densities. ??No suspicious masses or microcalcifications. ?? Benign appearing calcifications within both breasts. Brandan Burleson MD MAMMO from Last 3 Months or Most Recently Relevant to Health Maintenance Advance Directives * Full Code (Latest Code Status on File) Date Activated Date Inactivated Comments 05/20/2005 7:01 AM 05/20/2005 4:28 PM Care Teams Business Management Manager Relationship Specialty Start Date End Date Pcp, No . PCP - General 03/24/20 Brandan Burleson MD Gynecology Obstetrics and Gynecology 09/19/15
--- OUTSIDE RECORDS SUMMARY | 2024-01-08 10:25 | XMS_ITS | Encounter Summary ---
Author Organization [place] Address [address] [place] [address] Care Team Providers Care Produce Assistant Name Role Phone Roderick Morelos MD Unavailable [phone] Magno Wood MD Unavailable [phone] Sophie Ocasio AuD Unavailable Henny Rosales BEHAVIORAL SERVICES TECH CAR SUPPLIER Unavailable Sharee Oliva RD Unavailable [phone] Kaykay Duarte NP Primary Care Provider Christiane Rodríguez MD Unavailable Jing Cadena BEHAVIORAL SERVICES TECH SEISMOGRAPH CHIEF Unavailable Radha Lopez [facility] Unavailable Luis A Escobedo MD Unavailable Geri LozaC Unavailable [phone] Raina Patterson BEHAVIORAL SERVICES TECH CAR SUPPLIER Unavailable Encounter Details Date Type Department Care Team (Late st Contact Info) Description 04/14/2023 [facility] Medical Advice [facility] [address] 4th [place] [address] Tanya Larsen RN Social History [...] documented as of this encounter Care Teams Produce Assistant Relationship Specialty Start Date End Date Kaykay Duarte INSURANCE VERIFY REP [address] [place] [address] PCP - General 10/15/22 Roderick Morelos MD [address] [place] [address] Cardiovascular Disease 02/03/22 Magno Wood MD [address] [place] [address] [phone] Otolaryngology 02/21/22 Sophie Ocasio AuD [address] [place], [place] [address] Television Program Director Audiology 02/21/22 Henny Rosales APRN CAR SUPPLIER [address] [place] [id number] Assigned Heart and Vascular Provider 08/09/[address] [place] [address] [phone] Registered Dietitian Dietitian, Registered 09/02/22 Christiane Rodríguez MD 420 [facility] 396 [place], [place] [address] Otolaryngology 11/12/22 Jing Cadena APRN SEISMOGRAPH CHIEF [address] [place] [address] 450 [place], [place] 0839[address] Clinical Nurse Specialist Anesthesiology 01/15/23 Radha Lopez, [facility] [address] [place] [address] [phone] Pharmacist Pharmacist 01/16/23 Luis A Escobedo MD [address] [place] [address] 195 [place], [place] 944585 Assigned Surgical Provider 02/07/23 04/15/23 Geri Loza PA-C [address] [place] [address] 673575 Assigned Surgical Provider 04/16/23 Raina Patterson APRN CAR SUPPLIER [address] [place] [address] Nurse Practitioner Cardiovascular Disease 05/11/23 documented as of this encounter
--- OUTSIDE RECORDS SUMMARY | 2024-01-08 10:25 | XMS_ITS | Referral Summary ---
Author Organization [place] Address [address] [place] [address] Care Team Providers Care Cna Ltc Name Role Phone Roderick Morelos MD Unavailable Magno Wood MD Unavailable [phone] Sophie Ocasio AuD Unavailable Henny Rosales MATRIX WORKER RETOUCHER PHOTOENGRAVING Unavailable Sharee Oliva RD Unavailable [phone] Kaykay Duarte NP Primary Care Provider Christiane Rodríguez MD Unavailable [phone] Jing Cadena MATRIX WORKER INSURANCE HEALTHCARE REPRESENTATIVE Unavailable Radha Lopez [facility] Unavailable Geri Loza PA-C Unavailable Raina Patterson APRN RETOUCHER PHOTOENGRAVING Unavailable Encounters Date Type Department Care Team Description 10/18/2023 [facility] Heart [address] [address] Radha Lopez, [facility] from Last 3 Months Allergies Active Allergy [...] & Plan: S/p gastric sleeve 08/09/2020 at [facility]. No post op complications. 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 Gastric sleeve was completed 08/09/2020 at [facility] with Dr. Barillas. Starting weight 338lb, BMI [...] Comments Blood Pressure 124/78 03/24/2023 10:20 AM STORE PROMOTER Pulse 70 03/24/2023 10:20 AM STORE PROMOTER Temperature 36.8 ??C (98.2 ??F) 03/24/2023 10:[address] Respiratory Rate 16 03/24/2023 10:20 AM STORE PROMOTER Oxygen Saturation 99% 03/24/2023 10:20 AM STORE PROMOTER Inhaled Oxygen Concentration - - Weight 120.7 kg (266 lb) 04/23/2023 11:55 AM STORE PROMOTER Height 167.6 cm (5' 6) 04/23/2023 11:55 AM STORE PROMOTER Body Mass Index 42.93 04/23/2023 11:55 AM STORE PROMOTER Plan of Treatment Not on file Goals [...] FREE T4 REFLEX Add-On 02/28/2021 1:00 AM STORE PROMOTER 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 [...] with free T4 reflex (02/28/2021 1:00 AM STORE PROMOTER) TSH 0.86 0.40 - 4.00 mU/L 03/01/2021 4:13 PM STORE PROMOTER LABORATORY Blood STRUCTURE OF RIGHT UPPER LIMB / Unknown Venipuncture / Unknown 02/28/2021 1:00 AM STORE PROMOTER 02/28/2021 1:08 AM STORE PROMOTER Parth Ellis MD LAB - BLOOD ORD ERABLES LABORATORY [facility] Acute Care Lab [address] [facility] Lab (1st floor, no room number) [place] [address], [facility] [phone] from Last 3 Months or Most Recently Relevant to Health Maintenance Additional Health Concerns Active Problems Noted Date Diagnosed Date BRIAN PATHWAY SURGERY IS SCHEDULED 10/15/2022 Advance Directives For more information, please contact: [phone] * Full Code (Latest Code Status on [...] 12:01 PM 05/01/2018 3:45 AM Care Teams Cna Ltc Relationship Specialty Start Date End Date Kaykay Duarte, BESSEMER REGULATOR [address] [place] [address] PCP - General 10/15/22 Roderick Morelos MD [address] [place] [address] Cardiovascular Disease 02/03/22 Magno Wood MD [address] [place] [address] 396 [place], [place] 3455[address] Otolaryngology 02/21/22 Sophie Ocasio AuD [address] [place] [address] [phone] Acid Changer Audiology 02/21/22 Henny Rosales APRN RETOUCHER PHOTOENGRAVING [address] [place] [id number] Assigned Heart and Vascular Provider 08/09/[address] [place], [place] [address] Registered Dietitian Dietitian, Registered 09/02/22 Christiane Rodríguez MD 420 [facility] 396 [place], [place] 8[address]285 Otolaryngology 11/12/22 Jing Cadena, MATRIX WORKER INSURANCE HEALTHCARE REPRESENTATIVE 420 [facility] 450 [place], [place] 14[address]55 Clinical Nurse Specialist Anesthesiology 01/15/23 Radha Lopez, [facility] [address] [place] [address] [phone] Pharmacist Pharmacist 01/16/23 Geri Loza PA-C [address] [place] [address] 530375 Assigned Surgical Provider 04/16/23 Raina Patterson APRN RETOUCHER PHOTOENGRAVING [address] [place], [place] [address] Nurse Practitioner Cardiovascular Disease 05/11/23
--- OUTSIDE RECORDS SUMMARY | 2024-01-08 10:25 | XMS_ITS | Encounter Summary ---
Author Organization [place] Address [address] [place] [address]65 Care Team Providers Care Field Attendant Name Role Phone Roderick Morelos MD Unavailable Magno Wood MD Unavailable [phone] Sophie Ocasio AuD Unavailable Henny Rosales GASOLINE PUMP MECHANIC COMPLIANCE TESTING ANALYST Unavailable [phone] Unavailable [phone] Kaykay Duarte NP Primary Care Provider Christiane Rodríguez MD Unavailable Jing Cadena GASOLINE PUMP MECHANIC WAREHOUSE MANAGER Unavailable [phone] Radha Lopez [facility] Unavailable Luis A Escobedo MD Unavailable Geri LozaC Unavailable [phone] Raina Patterson GASOLINE PUMP MECHANIC COMPLIANCE TESTING ANALYST Unavailable Encounter Details Date Type Department Care Team (Late st Contact Info) Description 04/02/2023 [facility] [facility] [address] 4th [place] [address] Tanya Larsen RN Social History [...] documented as of this encounter Care Teams Field Attendant Relationship Specialty Start Date End Date Kaykay Duarte SERVICE DEVELOPER [address] [place] [address] PCP - General 10/15/22 Roderick Morelos MD [address] [place] [address] Cardiovascular Disease 02/03/22 Magno Wood MD [address] [place] [address] [id number] Otolaryngology 02/21/22 Sophie Ocasio AuD 909 [place], [place] 683375 Temporary Receptionist Audiology 02/21/22 Henny Rosales APRN COMPLIANCE TESTING ANALYST [address] [place] [id number] Assigned Heart and Vascular Provider 08/09/[address] [place] [address] 081705 Registered Dietitian Dietitian, Registered 09/02/22 Christiane Rodríguez MD 420 [facility] 396 [place], [place] 090945 Otolaryngology 11/12/22 Jing Cadena APRN WAREHOUSE MANAGER [address] [place] [address] 450 [place], [place] 405835 Clinical Nurse Specialist Anesthesiology 01/15/23 Radha Lopez, [facility] [address] [place] [address] 466555 Pharmacist Pharmacist 01/16/23 Luis A Escobedo MD [address] [place] [address] 195 [place], [place] 510475 Assigned Surgical Provider 02/07/23 04/15/23 Geri Loza PA-C [address] [place] [address] 927915 Assigned Surgical Provider 04/16/23 Raina Patterson APRN COMPLIANCE TESTING ANALYST [address] [place] 244935 Nurse Practitioner Cardiovascular Disease 05/11/23 documented as of this encounter
--- OUTSIDE RECORDS SUMMARY | 2024-01-08 10:25 | XMS_ITS | Encounter Summary ---
Author Organization [place] Address [address] [place] [address] Care Team Providers Care Ic Designer Custom Name Role Phone Roderick Morelos MD Unavailable [phone] Magno Wood MD Unavailable [phone] Sophie Ocasio AuD Unavailable [phone] Henny Rosales FOREIGN FOOD SPECIALTY COOK BUSINESS DEVELOPMENT SPECIALIST Unavailable Sharee Oliva [address] Unavailable [phone] Kaykay Duarte NP Primary Care Provider Christiane Rodríguez MD Unavailable Jing Cadena FOREIGN FOOD SPECIALTY COOK SKIN THERAPIST Unavailable Radha Lopez [facility] Unavailable [phone] Luis A Escobedo MD Unavailable Geri LozaC Unavailable [phone] Raina Patterson FOREIGN FOOD SPECIALTY COOK BUSINESS DEVELOPMENT SPECIALIST Unavailable Encounter Details Date Type Department Care Team (Late st Contact Info) Description 04/06/2023 [facility] Medical Advice [facility] Weight Management Clinic [address] 4th [place] [address] Tanya Larsen RN Social History [...] documented as of this encounter Care Teams Ic Designer Custom Relationship Specialty Start Date End Date Kaykay Duarte WEB ANALYST [address] [place] [address] PCP - General 10/15/22 Roderick Morelos MD [address] [place] [address] Cardiovascular Disease 02/03/22 Magno Wood MD [address] [place] [address] [id number] Otolaryngology 02/21/22 Sophie Ocasio AuD 909 [place], [place] 752035 Shopper Audiology 02/21/22 Henny Rosales APRN BUSINESS DEVELOPMENT SPECIALIST [address] [place] [id number] Assigned Heart and Vascular Provider 08/09/[address] [place] [address] 052185 Registered Dietitian Dietitian, Registered 09/02/22 Christiane Rodríguez MD 420 [facility] 396 [place], [place] 866225 Otolaryngology 11/12/22 Jing Cadena APRN SKIN THERAPIST [address] [place] [address] 450 [place], [place] 610445 Clinical Nurse Specialist Anesthesiology 01/15/23 Radha Lopez, [facility] [address] [place] [address] 629545 Pharmacist Pharmacist 01/16/23 Luis A Escobedo MD [address] [place] [address] 195 [place], [place] 473835 Assigned Surgical Provider 02/07/23 04/15/23 Geri Loza PA-C [address] [place] [address] 539235 Assigned Surgical Provider 04/16/23 Raina Patterson APRN BUSINESS DEVELOPMENT SPECIALIST [address] [place] 769445 Nurse Practitioner Cardiovascular Disease 05/11/23 documented as of this encounter
--- OUTSIDE RECORDS SUMMARY | 2024-01-08 10:25 | XMS_ITS | Encounter Summary ---
Author Organization [place] Address [address] [place] [address] Care Team Providers Care Transportation Project Manager Name Role Phone Roderick Morelos MD Unavailable [phone] Magno Wood MD Unavailable [phone] Sophie Ocasio AuD Unavailable Henny Rosales APPLICATIONS PROGRAMMER BODY TRIMMER Unavailable Sharee Oliva RD Unavailable [phone] Kaykay Duarte NP Primary Care Provider Christiane Rodríguez MD Unavailable Jing Cadena APPLICATIONS PROGRAMMER ROVING DEPARTMENT SUPERVISOR Unavailable [phone] Radha Lopez [facility] Unavailable [phone] Luis A Escobedo MD Unavailable Geri LozaC Unavailable [phone] Raina Patterson APPLICATIONS PROGRAMMER BODY TRIMMER Unavailable Encounter Details Date Type Department Care Team (Late st Contact Info) Description 03/31/2023 [facility] Medical Advice [facility] Weight [facility] [address] 4th [place] [address] Tanya Larsen RN Social History [...] as of this encounter Care Teams Transportation Project Manager Relationship Specialty Start Date End Date Kaykay Duarte HOT PLATE PRESS OPERATOR [address] [place] [address] PCP - General 10/15/22 Roderick Morelos MD [address] [place] [address] Cardiovascular Disease 02/03/22 Magno Wood MD [address] [place] [address] [id number] Otolaryngology 02/21/22 Sophie Ocasio AuD 909 [place], [place] 242475 Water Filtration Technician Audiology 02/21/22 Henny Rosales APRN BODY TRIMMER [address] [place] [id number] Assigned Heart and Vascular Provider 08/09/[address] [place] [address] 746005 Registered Dietitian Dietitian, Registered 09/02/22 Christiane Rodríguez MD 420 [facility] 396 [place], [place] 293385 Otolaryngology 11/12/22 Jing Cadena APRN ROVING DEPARTMENT SUPERVISOR [address] [place] [address] 450 [place], [place] 684495 Clinical Nurse Specialist Anesthesiology 01/15/23 Radha Lopez, [facility] [address] [place] [address] 908495 Pharmacist Pharmacist 01/16/23 Luis A Escobedo MD [address] [place] [address] 195 [place], [place] 658155 Assigned Surgical Provider 02/07/23 04/15/23 Geri Loza PA-C [address] [place] [address] 734025 Assigned Surgical Provider 04/16/23 Raina Patterson APRN BODY TRIMMER [address] [place] 890605 Nurse Practitioner Cardiovascular Disease 05/11/23 documented as of this encounter
--- OUTSIDE RECORDS SUMMARY | 2024-01-08 10:26 | XMS_ITS | Encounter Summary ---
Author Organization [place] Address [address] [place] [address] 80067 Care Team Providers Care Chief Deputy Court Clerk Name Role Phone Roderick Morelos MD Unavailable [phone] Magno Wood MD Unavailable [phone] Sophie Ocasio AuD Unavailable Henny Rosales TOURIST CABIN KEEPER CAFETERIA AIDE Unavailable Sharee Oliva RD Unavailable [phone] Kaykay Duarte NP Primary Care Provider [phone] Christiane Rodríguez MD Unavailable Jing Cadena TOURIST CABIN KEEPER TAFE REGISTRAR Unavailable Radha Lopez [facility] Unavailable Luis A Escobedo MD Unavailable Geri LozaC Unavailable [phone] Raina Patterson TOURIST CABIN KEEPER CAFETERIA AIDE Unavailable Encounter Details Date Type Department Care Team (Late st Contact Info) Description 03/11/2023 [facility] Medical Advice Initial Department [facility] [place] Social History Tobacco Use Types Packs/Day Years [...] documented as of this encounter Care Teams Chief Deputy Court Clerk Relationship Specialty Start Date End Date Kaykay Duarte RESPIRATORY ASSISTANT [address] [place] [address] PCP - General 10/15/22 Roderick Morelos MD [address] [place] 746055 Cardiovascular Disease 02/03/22 Magno Wood MD [address] [place] [address] 903365 Otolaryngology 02/21/22 Sophie Ocasio AuD [address] [place] [address] 028525 Mycology Teacher Audiology 02/21/22 Henny Rosales APRN CAFETERIA AIDE [address] [place] [phone] Assigned Heart and Vascular Provider 08/09/[address] 909 [place] [address] Registered Dietitian Dietitian, Registered 09/02/22 Christiane Rodríguez MD 420 [facility] 396 [place] [address] Otolaryngology 11/12/22 Jing Cadena, TOURIST CABIN KEEPER TAFE REGISTRAR 420 [facility] 450 [place], [place] 949855 Clinical Nurse Specialist Anesthesiology 01/15/23 Radha Lopez, [facility] [address] [place] [address] Pharmacist Pharmacist 01/16/23 Luis A Escobedo MD 420 [facility] 195 [place] [address] Assigned Surgical Provider 02/07/23 04/15/23 Geri Loza PA-C 9 [place] [address] Assigned Surgical Provider 04/16/23 Raina Patterson, GINA CAFETERIA AIDE [address] [facility] [address] [place], [place] 567435 Nurse Practitioner Cardiovascular Disease 05/11/23 documented as of this encounter
--- OUTSIDE RECORDS SUMMARY | 2024-01-08 10:26 | XMS_ITS | Encounter Summary ---
Author Organization [place] Address [address] [place] [address] Care Team Providers Care Traffic Superintendent Name Role Phone Roderick Morelos MD Unavailable [phone] Magno Wood MD Unavailable [phone] Sophie Ocasio AuD Unavailable Henny Rosales ENTRY LEVEL RECEPTIONIST TELEVISION SERVICER Unavailable Sharee [address]iva [address] Unavailable [phone] Kaykay Duarte NP Primary Care Provider Christiane Rodríguez MD Unavailable [phone] Jing Cadena ENTRY LEVEL RECEPTIONIST RECOVERER Unavailable Radha Lopez [facility] Unavailable Luis A Escobedo MD Unavailable Geri LozaC Unavailable [phone] Raina Patterson ENTRY LEVEL RECEPTIONIST TELEVISION SERVICER Unavailable [phone] Encounter Details Date Type Department Care Team (Late st Contact Info) Description 03/24/2023 [facility] Medical Advice [facility] Management [facility] [address] 4th [place] [address] Angélica Milligan Social History Tobacco [...] documented as of this encounter Care Teams Traffic Superintendent Relationship Specialty Start Date End Date Kaykay Duarte, COAL SAMPLE TESTER [address] [place] [address] PCP - General 10/15/22 Roderick Morelos MD [address] [place] [address] Cardiovascular Disease 02/03/22 Magno Wood MD [address] [place] [address] 396 [place], [place] 566745 Otolaryngology 02/21/22 Sophie Ocasio AuD 909 [place], [place] 010095 Voice Writing Reporter Audiology 02/21/22 Henny Rosales APRN TELEVISION SERVICER [address] [place] [id number] Assigned Heart and Vascular Provider 08/09/[address] [place], [place] 873715 Registered Dietitian Dietitian, Registered 09/02/22 Christiane Rodríguez MD 420 [facility] 396 [place], [place] 471735 Otolaryngology 11/12/22 Jing Cadena APRN RECOVERER 420 [facility] 450 [place], [place] 522185 Clinical Nurse Specialist Anesthesiology 01/15/23 Radha Lopez [facility] [address] [place] [address] 567455 Pharmacist Pharmacist 01/16/23 Luis A Escobedo MD 420 [facility] 195 [place], [place] 129285 Assigned Surgical Provider 02/07/23 04/15/23 Geri Loza PA-C [address] [place] [address] 783835 Assigned Surgical Provider 04/16/23 Raina Patterson, GINA TELEVISION SERVICER [address] [place] [address] [place] 486255 Nurse Practitioner Cardiovascular Disease 05/11/23 documented as of this encounter
--- OUTSIDE RECORDS SUMMARY | 2024-01-08 10:26 | XMS_ITS | Encounter Summary ---
Author Organization [place] Address [address] [place] [address]90 Care Team Providers Care Continuous Mining Machine Operator Name Role Phone Roderick Morelos MD Unavailable [phone] Magno Wood MD Unavailable [phone] Sophie Ocasio AuD Unavailable Henny Rosales FINISH SPECIALIST CLOTH SPONGER Unavailable Sharee [address]iva [address] Unavailable [phone] Kaykay Duarte FELT PULLER Primary Care Provider [phone] Christiane Rodríguez MD Unavailable [phone] Chely FernandezC Unavailable [phone] Jing Cadena FINISH SPECIALIST KNITTING MACHINE FIXER Unavailable Radha Lopez [facility] Unavailable Luis A Escobedo MD Unavailable [phone] Geri LozaC Unavailable Raina Patterson FINISH SPECIALIST CLOTH SPONGER Unavailable [phone] Encounter Details Date Type Department Care Team (Late st Contact Info) Description 01/14/2023 [facility] [address] [place] [address] Radha Dominguez, RN 420 [facility] 195 [place] [address] Social History Tobacco Use Types [...] documented as of this encounter Care Teams Continuous Mining Machine Operator Relationship Specialty [place] [address] [place] [address] PCP - General 10/15/22 Roderick Morelos MD [address] [place] [address] Cardiovascular Disease 02/03/22 Magno Wood MD 420 [facility] 396 [place], [place] 659495 Otolaryngology 02/21/22 Sophie Ocasio AuD [address] [facility] [address] [place], [place] 121755 Meter Maintenance Person Audiology 02/21/22 Henny Rosales, FINISH SPECIALIST CLOTH SPONGER [address] [place] [address] Assigned Heart and Vascular Provider 08/09/[address] [place] [address] 212695 Registered Dietitian Dietitian, Registered 09/02/22 Christiane Rodríguez MD 420 [facility] 396 [place], [place] 305015 Otolaryngology 11/12/22 Chely Fernandez PA-C [address] [place] [address] 132725 Assigned Surgical Provider 11/29/22 02/06/23 Jing Cadena FINISH SPECIALIST KNITTING MACHINE FIXER [address] [place] [address] 450 [place] [address] Clinical Nurse Specialist Anesthesiology 01/15/23 Radha Lopez, [facility] [address] [place] [address] 085135 Pharmacist Pharmacist 01/16/23 Luis A Escobedo MD 420 [facility] 195 [place], [place] 431005 Assigned Surgical Provider 02/07/23 04/15/23 Geri Loza PA-C [address] [place] [address] 698535 Assigned Surgical Provider 04/16/23 Raina Patterson, FINISH SPECIALIST CLOTH SPONGER [address] [facility] [address] [place] 412595 Nurse Practitioner Cardiovascular Disease 05/11/23 documented as of this encounter
--- OUTSIDE RECORDS SUMMARY | 2024-01-08 10:26 | XMS_ITS | Encounter Summary ---
Author Organization [place] Address [address] [place] [address] Care Team Providers Care Senior Quality Control Technician Name Role Phone Roderick Morelos MD Unavailable Magno Wood MD Unavailable [phone] Sophie Ocasio Unavailable Henny Rosales DIRECTOR MEDICAL AFFAIRS LAUNDRY HOUSEKEEPING AIDE Unavailable Sharee Oliva RD Unavailable [phone] Kaykay Duarte AEROSPACE PROJECT MANAGER Primary Care Provider Christiane Rodríguez MD Unavailable Chely FernandezC Unavailable Jing Cadena DIRECTOR MEDICAL AFFAIRS CLINICAL REHABILITATION SPECIALIST Unavailable [phone] Radha Lopez [facility] Unavailable [phone] Luis A Escobedo MD Unavailable [phone] Geri LozaC Unavailable Raina Patterson DIRECTOR MEDICAL AFFAIRS LAUNDRY HOUSEKEEPING AIDE Unavailable [phone] Reason for Visit * Reason Onset Date Comments Call Back 01/15/2023 See note. Encounter Details Date Type Department Care Team (Late st Contact Info) Description 01/15/2023 [facility] [address] 4th [place] [address] Luis A Escobedo MD 420 [facility] 195 [place], [place] 373065 Call Back (See note./) Social History Tobacco [...] or updates. Please contact Daisy Huynh, clinical science liaison, if clinic appt slots are not available. Henny, The patient has been informed that you will contact them about the preop class. Thank you! Summer, RN Radha Dominguez, MS, medical concierge Weight Management Nurse Coordinator MyChart messages to Surgery [facility] Nurses - Contact Center Nurse Line and Clinic [phone] documented in this encounter Plan of Treatment [...] as of this encounter Care Teams Senior Quality Control Technician Relationship Specialty Start Date End Date Kaykay Duarte, AEROSPACE PROJECT MANAGER [address] [place] [address] PCP - General 10/15/22 Roderick Morelos MD [address] [place], [place] 959655 Cardiovascular Disease 02/03/22 Magno Wood MD [address] [place] [address] 633855 Otolaryngology 02/21/22 Sophie Ocasio AuD [address] [place] [address] 855065 Manager Perioperative Audiology 02/21/22 Henny Rosales, DIRECTOR MEDICAL AFFAIRS LAUNDRY HOUSEKEEPING AIDE [address] [place] [phone] Assigned Heart and Vascular Provider 08/09/[address] [place] [address] 856385 Registered Dietitian Dietitian, Registered 09/02/22 Christiane Rodríguez MD 420 [facility] 396 [place], [place] 463235 Otolaryngology 11/12/22 Chely Fernandez PA-C 909 [place], [place] 681105 Assigned Surgical Provider 11/29/22 02/06/23 Jing Cadena APRN CLINICAL REHABILITATION SPECIALIST 420 [facility] 450 [place], [place] 440945 Clinical Nurse Specialist Anesthesiology 01/15/23 Radha Lopez, [facility] 909 [place], [place] 162555 Pharmacist Pharmacist 01/16/23 Luis A Escobedo MD 420 [facility] 195 [place], [place] 073895 Assigned Surgical Provider 02/07/23 04/15/23 Geri Loza PA-C 909 [place], [place] 813175 Assigned Surgical Provider 04/16/23 Raina Patterson, GINA LAUNDRY HOUSEKEEPING AIDE [address] [place] 815505 Nurse Practitioner Cardiovascular Disease 05/11/23 documented as of this encounter
--- OUTSIDE RECORDS SUMMARY | 2024-01-08 10:26 | XMS_ITS | Encounter Summary ---
Author Organization [facility] Address [address] [place] [address] 84676 Care Team Providers Care Medical Transcription Editor Name Role Phone Roderick Morelos MD Unavailable [phone] Magno Wood MD Unavailable [phone] Sophie Ocasio AuD Unavailable Henny Rosales HAND SILVERING SUPERVISOR CONCIERGE Unavailable Sharee Oliva RD Unavailable [phone] Kaykay Duarte SHIPPING AND RECEIVING ASSISTANT Primary Care Provider Christiane Rodríguez MD Unavailable Jing Cadena HAND SILVERING SUPERVISOR DATA GOVERNANCE ANALYST Unavailable Radha Lopez [facility] Unavailable Luis A Escobedo MD Unavailable Geri LozaC Unavailable [phone] Raina Patterson HAND SILVERING SUPERVISOR CONCIERGE Unavailable Encounter Details Date Type Department Care Team (Late st Contact Info) Description 03/21/2023 [facility] [place] [facility] [place] [id number] [facility] 4th [place] [address] Luis A Escobedo MD [address] [place] [address] 195 [place] [address] Social History Tobacco Use Types Packs/Day Years [...] as of this encounter Care Teams Medical Transcription Editor Relationship Specialty Start Date End Date Kaykay Duarte, SHIPPING AND RECEIVING ASSISTANT [address] [place] [address] [facility] [place] [address]17 PCP - General 10/15/22 Roderick Morelos MD [address] [place], [place] 157375 Cardiovascular Disease 02/03/22 Magno Wood MD 420 [facility] 396 [place], [place] 444885 Otolaryngology 02/21/22 Sophie Ocasio AuD 909 [place], [place] 578655 Splunk Consultant Audiology 02/21/22 Henny Rosales APRN CONCIERGE [address] [place] [address] Assigned Heart and Vascular Provider 08/09/[address] 909 [place] [address] Registered Dietitian Dietitian, Registered 09/02/22 Christiane Rodríguez MD 420 [facility] 396 [place], [place] 514105 Otolaryngology 11/12/22 Jing Cadena APRN DATA GOVERNANCE ANALYST 420 [facility] 450 [place], [place] 971475 Clinical Nurse Specialist Anesthesiology 01/15/23 Radha Lopez, [facility] 909 [place], [place] 953725 Pharmacist Pharmacist 01/16/23 Luis A Escobedo MD 420 [facility] 195 [place] [address] Assigned Surgical Provider 02/07/23 04/15/23 Geri Loza PA-C 909 [place] [address] Assigned Surgical Provider 04/16/23 Raina Patterson APRN CONCIERGE [address] [place] [address] [place] [address] Nurse Practitioner Cardiovascular Disease 05/11/23 documented as of this encounter
--- OUTSIDE RECORDS SUMMARY | 2024-01-08 10:26 | XMS_ITS | Encounter Summary ---
Author Organization [place] Address [address] [place] [address] 69408 Care Team Providers Care Ekg Manager Name Role Phone Roderick Morelos MD Unavailable [phone] Magno Wood MD Unavailable [phone] Sophie Ocasio AuD Unavailable Henny Rosales CROP RESEARCH SCIENTIST INSIDE UPHOLSTERER Unavailable Sharee Oliva RD Unavailable [phone] Kaykay Duarte TOBACCO CLOTH RECLAIMER Primary Care Provider Christiane Rodríguez MD Unavailable [phone] Chely FernandezC Unavailable Jing Cadena CROP RESEARCH SCIENTIST WASHER REPAIRMAN Unavailable Radha Lopez [facility] Unavailable Luis A Escobedo MD Unavailable [phone] Geri LozaC Unavailable [phone] Raina Patterson CROP RESEARCH SCIENTIST INSIDE UPHOLSTERER Unavailable [phone] Encounter Details Date Type Department Care Team (Late st Contact Info) Description 02/06/2023 [facility] [address] [place] [phone] Daniela [place] Social History Tobacco Use Types [...] documented as of this encounter Care Teams Ekg Manager Relationship Specialty [place] [address] [place] [address] PCP - General 10/15/22 Roderick Morelos MD [address] [place] [address] Cardiovascular Disease 02/03/22 Magno Wood MD [address] [place] [address] 728915 Otolaryngology 02/21/22 Sophie Ocasio AuD [address] [place] [address] 127445 Senior Mechanical Technician Audiology 02/21/22 Henny Rosales APRN INSIDE UPHOLSTERER [address] [place] [phone] Assigned Heart and Vascular Provider 08/09/[address] [place] [address] 299235 Registered Dietitian Dietitian, Registered 09/02/22 Christiane Rodríguez MD [address] [place] [address] 396 [place], [place] 905815 Otolaryngology 11/12/22 Chely Fernandez PA-C [address] [place] [address] 090135 Assigned Surgical Provider 11/29/22 02/06/23 Jing Cadena APRN WASHER REPAIRMAN [address] [place] [address] 450 [place], [place] 296815 Clinical Nurse Specialist Anesthesiology 01/15/23 Radha Lopez, [facility] [address] [place] [address] 730325 Pharmacist Pharmacist 01/16/23 Luis A Escobedo MD [address] [place] [address] 195 [place], [place] 809255 Assigned Surgical Provider 02/07/23 04/15/23 Geri Loza PA-C [address] [place] [address] 773385 Assigned Surgical Provider 04/16/23 Raina Patterson APRN INSIDE UPHOLSTERER [address] [facility] [address] [place], [place] 535025 Nurse Practitioner Cardiovascular Disease 05/11/23 documented as of this encounter
--- OUTSIDE RECORDS SUMMARY | 2024-01-08 10:26 | XMS_ITS | Encounter Summary ---
Author Organization [place] Address [address] [place] [address] 41277 Care Team Providers Care Gravure Press Set Up Operator Name Role Phone Roderick Morelos MD Unavailable [phone] Magno Wood MD Unavailable [phone] Sophie Ocasio AuD Unavailable [phone] Henny Rosales FINANCE SPECIALIST ECOLOGIST TECHNICIAN Unavailable Sharee Oliva RD Unavailable [phone] Kaykay Duarte MANAGER STUDY Primary Care Provider Christiane Rodríguez MD Unavailable Chely FernandezC Unavailable Jing Cadena FINANCE SPECIALIST QUALITY ASSURANCE QA LAB TECHNICIAN Unavailable [phone] Radha Lopez [facility] Unavailable Luis A Escobedo MD Unavailable [phone] Geri LozaC Unavailable Raina Patterson FINANCE SPECIALIST ECOLOGIST TECHNICIAN Unavailable [phone] Encounter Details Date Type Department Care Team (Late st Contact Info) Description 01/26/2023 Telephone [facility] [address] [place] [address] Geri Loza PA-C 9[address] [place], [place] 599655 Social History Tobacco Use Types Packs/Day Years [...] 01/26/2023 at 9:59 AM by Tamera Bhardwaj T REGISTRY OFFICER documented in this encounter Plan of Treatment Not on file documented as of this encounter Goals Goal Patient Goal Type Associated Problems Recent Progress Patient-Stated? Author BRIAN PATHWAY SURGERY IS SCHEDULED Care Plan BRIAN PATHWAY SURGERY IS SCHEDULED No Luis A Esocbedo MD documented as of this encounter Visit Diagnoses Not on filedocumented in this encounter Additional Health Concerns Active Problems Noted Date Diagnosed Date BRIAN PATHWAY SURGERY IS SCHEDULED 10/15/2022 documented as of this encounter Care Teams Gravure Press Set Up Operator Relationship Specialty Start Date End Date Kaykay Duarte, MANAGER STUDY [address] [place] [address] PCP - General 10/15/22 Roderick Morelos MD [address] [place] [address] Cardiovascular Disease 02/03/22 Magno Wood MD [address] [place] [address] 09255 Otolaryngology 02/21/22 Sophie Ocasio AuD [address] [place] [address] 266055 Patient Services Representative Audiology 02/21/22 Henny Rosales APRN ECOLOGIST TECHNICIAN [address] [facility] [address] [address] [place] [phone] Assigned Heart and Vascular Provider 08/09/[address] [place] [address] 458315 Registered Dietitian Dietitian, Registered 09/02/22 Christiane Rodríguez MD [address] [place] [address]79 Otolaryngology 11/12/22 Chely Fernandez PA-C [address] [place] [address] 051535 Assigned Surgical Provider 11/29/22 02/06/23 Jing Cadena APRN QUALITY ASSURANCE QA LAB TECHNICIAN [address] [place] [address] 852675 Clinical Nurse Specialist Anesthesiology 01/15/23 Radha Lopez, [facility] [address] [place] [address] 11570 Pharmacist Pharmacist 01/16/23 Luis A Escobedo MD [address] [place] [address] 195 [place] [address] Assigned Surgical Provider 02/07/23 04/15/23 Geri Loza PA-C [address] [place] [address] 82958 Assigned Surgical Provider 04/16/23 Raina Patterson APRN [facility] [address] [place] [address] Nurse Practitioner Cardiovascular Disease 05/11/23 documented as of this encounter
--- OUTSIDE RECORDS SUMMARY | 2024-01-08 10:26 | XMS_ITS | Encounter Summary ---
Author Organization [place] Address [address] [place] [address] 21880 Care Team Providers Care Cytogenetics Laboratory Manager Name Role Phone Roderick Morelos MD Unavailable [phone] Magno Wood MD Unavailable [phone] Sophie Ocasio AuD Unavailable Henny Rosales SLUDGE FILTRATION OPERATOR RETAIL LOSS PREVENTION OFFICER Unavailable Sharee Oliva RD Unavailable [phone] Kaykay Duarte NP Primary Care Provider Christiane Rodríguez MD Unavailable [phone] Jing Cadena SLUDGE FILTRATION OPERATOR ANIMAL TECHNICIAN Unavailable [phone] Radha Lopez [facility] Unavailable [phone] Luis A Escobedo MD Unavailable Geri LozaC Unavailable [phone] Raina Patterson SLUDGE FILTRATION OPERATOR RETAIL LOSS PREVENTION OFFICER Unavailable [phone] Encounter Details Date Type Department Care Team (Late st Contact Info) Description 02/17/2023 [facility] Adv[facility] [address] 4th [place] [address] [place], Henny, RN Social History [...] documented as of this encounter Care Teams Cytogenetics Laboratory Manager Relationship Specialty [place] [address] [place] [address] PCP - General 10/15/22 Roderick Morelos MD [address] [place] 804055 Cardiovascular Disease 02/03/22 Magno Wood MD [address] [place] [address] 259485 Otolaryngology 02/21/22 Sophie Ocasio AuD 909 [place], [place] 081195 Automatic Presser Audiology 02/21/22 Henny Rosales APRN RETAIL LOSS PREVENTION OFFICER [address] [place] [phone] Assigned Heart and Vascular Provider 08/09/[address] [place], [place] 846275 Registered Dietitian Dietitian, Registered 09/02/22 Christiane Rodríguez MD 420 [facility] 396 [place], [place] 921015 Otolaryngology 11/12/22 Jing Cadena APRN ANIMAL TECHNICIAN 420 [facility] 450 [place] [address] Clinical Nurse Specialist Anesthesiology 01/15/23 Radha Lopez, [facility] [address] [place] [address] 530185 Pharmacist Pharmacist 01/16/23 Luis A Escobedo MD 420 [facility] 195 [place], [place] 630065 Assigned Surgical Provider 02/07/23 04/15/23 Geri Loza PA-C 9 [place], [place] 525335 Assigned Surgical Provider 04/16/23 Raina Patterson, GINA RETAIL LOSS PREVENTION OFFICER [address] [place] [address] [place] 534915 Nurse Practitioner Cardiovascular Disease 05/11/23 documented as of this encounter
--- OUTSIDE RECORDS SUMMARY | 2024-01-08 10:26 | XMS_ITS | Encounter Summary ---
Author Organization [place] Address [address] [place] [address] 14920 Care Team Providers Care Light Fixture Servicer Name Role Phone Roderick Morelos MD Unavailable [phone] Magno Wood MD Unavailable [phone] Sophie Ocasio AuD Unavailable Henny Rosales INTERACTIVE MEDIA MARKETING SPECIALIST SANDWICH MAKER Unavailable Sharee Oliva RD Unavailable [phone] Kaykay Duarte NP Primary Care Provider Christiane Rodríguez MD Unavailable Jing Cadena INTERACTIVE MEDIA MARKETING SPECIALIST GROUP SALES MANAGER Unavailable Radha Lopez [facility] Unavailable Luis A Escobedo MD Unavailable Geri LozaC Unavailable [phone] Raina Patterson INTERACTIVE MEDIA MARKETING SPECIALIST SANDWICH MAKER Unavailable Encounter Details Date Type Department Care Team (Late st Contact Info) Description 03/11/2023 MyC Medical Advice Initial Department [facility] [place] Social History Tobacco Use Types Packs/Day Years [...] documented as of this encounter Care Teams Light Fixture Servicer Relationship Specialty Start Date End Date Kaykay Duarte INSPECTION AND TESTING SUPERVISOR [address] [place] [address] PCP - General 10/15/22 Roderick Morelos MD [address] [place] 899545 Cardiovascular Disease 02/03/22 Magno Wood MD [address] [place] [address] 679495 Otolaryngology 02/21/22 Sophie Ocasio AuD [address] [place] [address] 043505 Cyber Defense Incident Responder Audiology 02/21/22 Henny Rosales APRN SANDWICH MAKER [address] [place] [phone] Assigned Heart and Vascular Provider 08/09/[address] [place] [address] Registered Dietitian Dietitian, Registered 09/02/22 Christiane Rodríguez MD 420 [facility] 396 [place] [address] Otolaryngology 11/12/22 Jing Cadena, INTERACTIVE MEDIA MARKETING SPECIALIST GROUP SALES MANAGER 420 [facility] 450 [place], [place] 487305 Clinical Nurse Specialist Anesthesiology 01/15/23 Radha Lopez, [facility] [address] [place] [address] 93411 Pharmacist Pharmacist 01/16/23 Luis A Escobedo MD 420 [facility] 195 [place] [address] Assigned Surgical Provider 02/07/23 04/15/23 Geri Loza PA-C 9 [place] [address] Assigned Surgical Provider 04/16/23 Raina Patterson, GINA SANDWICH MAKER [address] [facility] [address] [place], [place] 405975 Nurse Practitioner Cardiovascular Disease 05/11/23 documented as of this encounter
--- OUTSIDE RECORDS SUMMARY | 2024-01-08 10:26 | XMS_ITS | Encounter Summary ---
Author Organization [place] Address [address] [place] [address] 13136 Care Team Providers Care Ui Designer Name Role Phone Roderick Morelos MD Unavailable [phone] Magno Wood MD Unavailable [phone] Sophie Ocasio AuD Unavailable Henny Rosales PUBLIC DEFENDER BUILDING CONSTRUCTION IRONWORKER Unavailable Sharee Oliva RD Unavailable [phone] Kaykay Duarte SOLAR SALES ASSESSOR Primary Care Provider Christiane Rodríguez MD Unavailable Chely FernandezC Unavailable Jing Cadena PUBLIC DEFENDER BAND EDGER Unavailable [phone] Radha Lopez [facility] Unavailable [phone] Luis A Escobedo MD Unavailable [phone] Geri LozaC Unavailable [phone] Raina Patterson PUBLIC DEFENDER BUILDING CONSTRUCTION IRONWORKER Unavailable [phone] Encounter Details Date Type Department Care Team (Late st Contact Info) Description 01/21/2023 [facility] [address] [place] [address] Radha Dominguez, RN 420 [facility] 195 [place] [address] Social History Tobacco Use Types [...] documented as of this encounter Care Teams Ui Designer Relationship Specialty [place] [address] [place] [address] PCP - General 10/15/22 Roderick Morelos MD [address] [place] [address] Cardiovascular Disease 02/03/22 Magno Wood MD 420 [facility] 396 [place], [place] 504585 Otolaryngology 02/21/22 Sophie Ocasio AuD 909 [facility] [place], [place] 904615 Financial Business Analyst Audiology 02/21/22 Henny Rosales, PUBLIC DEFENDER BUILDING CONSTRUCTION IRONWORKER [address] [place] [address] Assigned Heart and Vascular Provider 08/09/[address] [place] [address] 754275 Registered Dietitian Dietitian, Registered 09/02/22 Christiane Rodríguez MD 420 [facility] 396 [place], [place] 889695 Otolaryngology 11/12/22 Chely Fernandez PA-C [address] [place] [address] 695045 Assigned Surgical Provider 11/29/22 02/06/23 Jing Cadena PUBLIC DEFENDER BAND EDGER [address] [place] [address] 450 [place] [address] Clinical Nurse Specialist Anesthesiology 01/15/23 Radha Lopez, [facility] [address] [place] [address] 785815 Pharmacist Pharmacist 01/16/23 Luis A Escobedo MD 420 [facility] 195 [place], [place] 275415 Assigned Surgical Provider 02/07/23 04/15/23 Geri Loza PA-C [address] [place] [address] 647515 Assigned Surgical Provider 04/16/23 Raina Patterson, PUBLIC DEFENDER BUILDING CONSTRUCTION IRONWORKER [address] [facility] [address] [place] 427505 Nurse Practitioner Cardiovascular Disease 05/11/23 documented as of this encounter
--- OUTSIDE RECORDS SUMMARY | 2024-01-08 10:26 | XMS_ITS | Encounter Summary ---
Author Organization [place] Address [facility] [place] [address] Care Team Providers Care Handle Turner Name Role Phone Roderick Morelos MD Unavailable [phone] Magno Wood MD Unavailable [phone] Sophie Ocasio AuD Unavailable Henny Rosales MENTAL HEALTH SPECIALIST QUALITY CONTROL CHEMIST Unavailable Sharee Oliva [address] Unavailable [phone] Kaykay Duarte NP Primary Care Provider Christiane Rodríguez MD Unavailable [phone] Jing Cadena MENTAL HEALTH SPECIALIST CLERK CHECKER Unavailable Radha Lopez [facility] Unavailable [phone] Luis A Escobedo MD Unavailable Geri LozaC Unavailable [phone] Raina Patterson MENTAL HEALTH SPECIALIST QUALITY CONTROL CHEMIST Unavailable [phone] Encounter Details Date Type Department Care Team (Late st Contact Info) Description 03/17/2023 MyC Medical Advice UR PREOP/PHASE II 2450 [place] [address] Pearl Rocha, SKIP Social History [...] documented as of this encounter Care Teams Handle Turner Relationship Specialty Start Date End Date Kaykay Duarte RF TEST ENGINEER [address] [place] [address] PCP - General 10/15/22 Roderick Morelos MD [address] [place] [address] Cardiovascular Disease 02/03/22 Magno Wood MD [address] [place] [address] 552565 Otolaryngology 02/21/22 Sophie Ocasio AuD 909 [place], [place] 454065 Weaving Professor Audiology 02/21/22 Henny Rosales APRN QUALITY CONTROL CHEMIST [address] [place] [id number] Assigned Heart and Vascular Provider 08/09/[address] 9 [place], [place] 328265 Registered Dietitian Dietitian, Registered 09/02/22 Christiane Rodríguez MD 420 [facility] 396 [place], [place] 465335 Otolaryngology 11/12/22 Jing Cadena APRN CLERK CHECKER 420 [facility] 450 [place], [place] 583465 Clinical Nurse Specialist Anesthesiology 01/15/23 Radha Lopez [facility] [address] [place] [address] 607665 Pharmacist Pharmacist 01/16/23 Luis A Escobedo MD 420 [facility] 195 [place], [place] 152115 Assigned Surgical Provider 02/07/23 04/15/23 Geri Loza PA-C [address] [place] [address] 162215 Assigned Surgical Provider 04/16/23 Raina Patterson, GINA QUALITY CONTROL CHEMIST [address] [place] 205535 Nurse Practitioner Cardiovascular Disease 05/11/23 documented as of this encounter
--- OUTSIDE RECORDS SUMMARY | 2024-01-08 10:26 | XMS_ITS | Encounter Summary ---
Author Organization [place] Address [address] [place] [address] 11610 Care Team Providers Care Motion Graphics Artist Name Role Phone Roderick Morelos MD Unavailable [phone] Magno Wood MD Unavailable [phone] Sophie Ocasio AuD Unavailable [phone] Henny Rosales LECTURER OF PORTUGUESE HAND MOUNTER Unavailable Sharee Oliva [address] Unavailable [phone] Kaykay Duarte NP Primary Care Provider [phone] Christiane Rodríguez MD Unavailable Jing Cadena LECTURER OF PORT[place]UESE HR INTERNSHIP Unavailable Radha Lopez [facility] Unavailable Luis A Escobedo MD Unavailable Geri LozaC Unavailable [phone] Raina Patterson LECTURER OF PORTUGUESE HAND MOUNTER Unavailable Encounter Details Date Type Department Care Team (Late st Contact Info) Description 03/25/2023 [facility] [address] 4th [place] [address] Kang Griffiths Social History Tobacco [...] documented as of this encounter Care Teams Motion Graphics Artist Relationship Specialty Start Date End Date Kaykay Duarte WAVE SOLDER OFFBEARER [address] [place] [address] PCP - General 10/15/22 Roderick Morelos MD [address] [place] [address] Cardiovascular Disease 02/03/22 Magno Wood MD [address] [place] [address] 081375 Otolaryngology 02/21/22 Sophie Ocasio AuD 909 [place], [place] 645005 Kick Plate Installer Audiology 02/21/22 Henny Rosales APRN HAND MOUNTER [address] [place] [phone] Assigned Heart and Vascular Provider 08/09/[address] 9 [place], [place] 652615 Registered Dietitian Dietitian, Registered 09/02/22 Christiane Rodríguez MD 420 [facility] 396 [place], [place] 438905 Otolaryngology 11/12/22 Jing Cadena APRN HR INTERNSHIP 420 [facility] 450 [place], [place] 160855 Clinical Nurse Specialist Anesthesiology 01/15/23 Radha Lopez [facility] [address] [place] [address] 420565 Pharmacist Pharmacist 01/16/23 Luis A Escobedo MD 420 [facility] 195 [place], [place] 577015 Assigned Surgical Provider 02/07/23 04/15/23 Geri Loza PA-C [address] [place] [address] 396365 Assigned Surgical Provider 04/16/23 Raina Patterson, GINA HAND MOUNTER [address] [place] 202375 Nurse Practitioner Cardiovascular Disease 05/11/23 documented as of this encounter
--- OUTSIDE RECORDS SUMMARY | 2024-01-08 10:26 | XMS_ITS | Encounter Summary ---
Author Organization [place] Address [address] [place] [address] 89801 Care Team Providers Care Interpreter For The Deaf Name Role Phone Roderick Morelos MD Unavailable [phone] Magno Wood MD Unavailable [phone] Sophie Ocasio AuD Unavailable eHnny Rosales EVENT HOST HVAC CONTROLS TECHNICIAN Unavailable Sharee Oliva [address] Unavailable [phone] Kaykay Duarte NP Primary Care Provider [phone] Christiane Rodríguez MD Unavailable Jing Cadena EVENT HOST RADIO TIME SALESPERSON Unavailable Radha Lopez [facility] Unavailable Luis A Escobedo MD Unavailable Grei LozaC Unavailable [phone] Raina Patterson EVENT HOST HVAC CONTROLS TECHNICIAN Unavailable [phone] Encounter Details Date Type Department Care Team (Late st Contact Info) Description 02/17/2023 [facility] Advice [facility] [address] 4th [place] [address] [place], Henny, RN Social History [...] documented as of this encounter Care Teams Interpreter For The Deaf Relationship Specialty [place] [address] [place] [address] PCP - General 10/15/22 Roderick Morelos MD [address] [place] 951885 Cardiovascular Disease 02/03/22 Magno Wood MD [address] [place] [address] 441245 Otolaryngology 02/21/22 Sophie Ocasio AuD 909 [place], [place] 063435 Credit Collections Specialist Audiology 02/21/22 Henny Rosales APRN HVAC CONTROLS TECHNICIAN [address] [place] [phone] Assigned Heart and Vascular Provider 08/09/[address]09 [place], [place] 428605 Registered Dietitian Dietitian, Registered 09/02/22 Christiane Rodríguez MD 420 [facility] 396 [place], [place] 452165 Otolaryngology 11/12/22 Jing Cadena APRN RADIO TIME SALESPERSON 420 [facility] 450 [place] [address] Clinical Nurse Specialist Anesthesiology 01/15/23 Radha Lopez, [facility] [address] [place] [address] 963035 Pharmacist Pharmacist 01/16/23 Luis A Escobedo MD 420 [facility] 195 [place], [place] 492835 Assigned Surgical Provider 02/07/23 04/15/23 Geri Loza PA-C 9 [place], [place] 723005 Assigned Surgical Provider 04/16/23 Raina Patterson, GINA HVAC CONTROLS TECHNICIAN [address] [place] [address] [place] 532875 Nurse Practitioner Cardiovascular Disease 05/11/23 documented as of this encounter
--- OUTSIDE RECORDS SUMMARY | 2024-01-08 10:26 | XMS_ITS | Encounter Summary ---
Author Organization [place] Address [address] [place] [address] Care Team Providers Care Risk Intern Name Role Phone Roderick Morelos MD Unavailable [phone] Magno Wood MD Unavailable [phone] Sophie Ocasio AuD Unavailable Henny Rosales PREP ROOM SUPERVISOR TREASURY CONSULTANT Unavailable Sharee Oliva RD Unavailable [phone] Kaykay Duarte PELT INSPECTOR Primary Care Provider [phone] Christiane Rodríguez MD Unavailable [phone] Chely FernandezC Unavailable [phone] Jing Cadena PREP ROOM SUPERVISOR SYSTEMS CHECKOUT MECHANIC Unavailable [phone] Radha Lopez [facility] Unavailable [phone] Luis A Escobedo MD Unavailable [phone] Geri LozaC Unavailable Raina Patterson PREP ROOM SUPERVISOR TREASURY CONSULTANT Unavailable [phone] Encounter Details Date Type Department Care Team (Late st Contact Info) Description 01/21/2023 [facility] [address]th [place] [address] Radha Dominguez, RN [address] [facility] 195 [place] [address] Social History Tobacco Use Types [...] documented as of this encounter Care Teams Risk Intern Relationship Specialty [place] [address] [place] [place] [address] PCP - General 10/15/22 Roderick Morelos MD [address] [place] [address] Cardiovascular Disease 02/03/22 Magno Wood MD 420 [facility] 396 [place], [place] 827885 Otolaryngology 02/21/22 Sophie Ocasio AuD 909 [facility] [place] [address] Rental Agent Audiology 02/21/22 Henny Rosales, PREP ROOM SUPERVISOR TREASURY CONSULTANT [address] [place] [phone] Assigned Heart and Vascular Provider 08/09/[address] [place] [address] [phone] Registered Dietitian Dietitian, Registered 09/02/22 Christiane Rodríguez MD [address] [facility] 396 [place], [place] 502945 Otolaryngology 11/12/22 Chely Fernandez PA-C [address] [place] [address] 690725 Assigned Surgical Provider 11/29/22 02/06/23 Jing Cadena PREP ROOM SUPERVISOR SYSTEMS CHECKOUT MECHANIC [address] [place] [address] 450 [place] [address] Clinical Nurse Specialist Anesthesiology 01/15/23 Radha Lopez, [facility] [address] [place] [address] 594655 Pharmacist Pharmacist 01/16/23 Luis A Escobedo MD 420 [facility] 195 [place], [place] 105705 Assigned Surgical Provider 02/07/23 04/15/23 Geri Loza PA-C [address] [place] [address] 527675 Assigned Surgical Provider 04/16/23 Raina Patterson, PREP ROOM SUPERVISOR TREASURY CONSULTANT [address] [facility] [address] [place] 754695 Nurse Practitioner Cardiovascular Disease 05/11/23 documented as of this encounter
--- OUTSIDE RECORDS SUMMARY | 2024-01-08 10:26 | XMS_ITS | Encounter Summary ---
Author Organization [place] Address [address] [place] [address] 21882 Care Team Providers Care Electric Motor Control Assembler Name Role Phone Roderick Morelos MD Unavailable [phone] Magno Wood MD Unavailable [phone] Sophie Ocasio AuD Unavailable Henny Rosales EMPLOYMENT COACH CENTRIFUGE OPERATOR Unavailable Sharee Oliva RD Unavailable [phone] Kaykay Duarte [employer] [place] SYSTEMS SUPERINTENDENT Primary Care Provider [phone] Christiane Rodríguez MD Unavailable Chely FernandezC Unavailable Jing Cadena EMPLOYMENT COACH WINDOWS LAPTOP TECHNICIAN Unavailable [phone] Radha Lopez [facility] Unavailable [phone] Luis A Escobedo MD Unavailable [phone] Geri LozaC Unavailable [phone] Raina Patterson EMPLOYMENT COACH CENTRIFUGE OPERATOR Unavailable [phone] Encounter Details Date Type Department Care Team (Late st Contact Info) Description 01/15/2023 [facility] [address]th [place] [address] Geri Loza PA-C 909 [place], [place] 906135 Social History Tobacco Use Types Packs/Day Years [...] Lopez, PharmD, BCACP Medication Therapy Management Pharmacist [facility] * Telephone Encounter [...] as of this encounter Care Teams Electric Motor Control Assembler Relationship Specialty [place] [address] [place] [address] PCP - General 10/15/22 Roderick Morelos MD [address] [place] [address] Cardiovascular Disease 02/03/22 Magno Wood MD [address] [place] [address] 381645 Otolaryngology 02/21/22 Sophie Ocasio AuD [address] [place] [address] 405585 Police Manager Audiology 02/21/22 Henny Rosales APRN CENTRIFUGE OPERATOR [address] [place] [address] Assigned Heart and Vascular Provider 08/09/[address] [place] [address] 846045 Registered Dietitian Dietitian, Registered 09/02/22 Christiane Rodríguez MD [address] [place] [address] 447895 Otolaryngology 11/12/22 Chely Fernandez PA-C [address] [place] [address] 72266 Assigned Surgical Provider 11/29/22 02/06/23 Jing Cadena APRN WINDOWS LAPTOP TECHNICIAN 420 [facility] 450 [place] [address] Clinical Nurse Specialist Anesthesiology 01/15/23 Radha Lopez, [facility] 909 [place] [address] Pharmacist Pharmacist 01/16/23 Luis A Escobedo MD 420 [facility] 195 [place], [place] 863555 Assigned Surgical Provider 02/07/23 04/15/23 Geri Loza PA-C [address] [place] [address] 85474 Assigned Surgical Provider 04/16/23 Raina Patterson APRN CENTRIFUGE OPERATOR [address] [place] 762215 Nurse Practitioner Cardiovascular Disease 05/11/23 documented as of this encounter
--- OUTSIDE RECORDS SUMMARY | 2024-01-08 10:26 | XMS_ITS | Encounter Summary ---
Author Organization [place] Address [address] [place] [address] 87542 Care Team Providers Care Set Up Operator Name Role Phone Roderick Morelos MD Unavailable [phone] Magno Wood MD Unavailable [phone] Sophie Ocasio AuD Unavailable [phone] Henny Rosales CLASS C DRIVER TAPPET ADJUSTER Unavailable Sharee Oliva RD Unavailable [phone] Kaykay Duarte NP Primary Care Provider Christiane Rodríguez MD Unavailable [phone] Jing Cadena CLASS C DRIVER GAUGE INSPECTOR Unavailable Radha Lopez [facility] Unavailable Luis A Escobedo MD Unavailable Geri LozaC Unavailable [phone] Raina Patterson CLASS C DRIVER TAPPET ADJUSTER Unavailable [phone] Encounter Details Date Type Department Care Team (Late st Contact Info) Description 02/18/2023 [facility] [address] 5th [place] [address] Nikky Babb, RN Social History [...] documented as of this encounter Care Teams Set Up Operator Relationship Specialty Start Date End Date Kaykay Duarte CLIENT SPECIALIST [address] [place] [address] PCP - General 10/15/22 Roderick Morelos MD [address] [place] [address] Cardiovascular Disease 02/03/22 Magno Wood MD [address] [place] [address] 278985 Otolaryngology 02/21/22 Sophie Ocasio, Nick 909 [place], [place] 529635 Forest Ecology Professor Audiology 02/21/22 Henny Rosales APRN TAPPET ADJUSTER [address] [place] [phone] Assigned Heart and Vascular Provider 08/09/[address] [place] [address] 931195 Registered Dietitian Dietitian, Registered 09/02/22 Christiane Rodríguez MD [address] [place] [address] 396 [place], [place] 658465 Otolaryngology 11/12/22 Jing Cadena APRN GAUGE INSPECTOR [address] [place] [address] 450 [place], [place] 327385 Clinical Nurse Specialist Anesthesiology 01/15/23 Radha Lopez, [facility] [address] [place] [address] 528855 Pharmacist Pharmacist 01/16/23 Luis A Escobedo MD [address] [place] [address] 195 [place], [place] 572255 Assigned Surgical Provider 02/07/23 04/15/23 Geri Loza PA-C [address] [place] [address] 231585 Assigned Surgical Provider 04/16/23 Raina Patterson, GINA TAPPET ADJUSTER [address] [place] 146295 Nurse Practitioner Cardiovascular Disease 05/11/23 documented as of this encounter
--- OUTSIDE RECORDS SUMMARY | 2024-01-08 10:26 | XMS_ITS | Encounter Summary ---
Author Organization [place] Address [address] [place] [address]38 Care Team Providers Care Formal Wear Rental Clerk Name Role Phone Roderick Morelos MD Unavailable [phone] Magno Wood MD Unavailable [phone] Sophie Ocasio AuD Unavailable Henny Rosales CHAIRMAN OF THE BOARD TRACTOR OPERATOR BATTERY Unavailable [phone] Unavailable [phone] Kaykay Duarte AUTOMOTIVE GENERATOR REPAIRER Primary Care Provider [phone] Christiane Rodríguez MD Unavailable Chely FernandezC Unavailable Jing Cadena CHAIRMAN OF THE BOARD GAS PUMP ATTENDANT Unavailable [phone] Radha Lopez [facility] Unavailable Luis A Escobedo MD Unavailable [phone] Geri LozaC Unavailable [phone] Raina Patterson CHAIRMAN OF THE BOARD TRACTOR OPERATOR BATTERY Unavailable [phone] Encounter Details Date Type Department Care Team (Late st Contact Info) Description 01/26/2023 [facility] [address]th [place] [phone] Henny Arguello, RN Social History Tobacco Use [...] documented as of this encounter Care Teams Formal Wear Rental Clerk Relationship Specialty Start Date End Date Kaykay Duarte AUTOMOTIVE GENERATOR REPAIRER [address] [facility] [address] [facility] [place] [address] PCP - General 10/15/22 Roderick Morelos MD [address] [place] [address] Cardiovascular Disease 02/03/22 Magno Wood MD [address] [place] [address] 055395 Otolaryngology 02/21/22 Sophie Ocasio, Nick [address] [place] [address] 185425 Poolroom/Poolhall Manager Audiology 02/21/22 Henny Rosales, CHAIRMAN OF THE BOARD TRACTOR OPERATOR BATTERY [address] [place] [address] Assigned Heart and Vascular Provider 08/09/[address] [place] [address] 284815 Registered Dietitian Dietitian, Registered 09/02/22 Christiane Rodríguez MD [address] [place] [address] 396 [place], [place] 670875 Otolaryngology 11/12/22 Chely Fernandez PA-C [address] [place] [address] 865495 Assigned Surgical Provider 11/29/22 02/06/23 Jing Cadena APRN GAS PUMP ATTENDANT [address] [place] [address] 450 [place], [place] 886555 Clinical Nurse Specialist Anesthesiology 01/15/23 Radha Lopez, [facility] [address] [place] [address] 481985 Pharmacist Pharmacist 01/16/23 Luis A Escobedo MD [address] [place] [address] 195 [place], [place] 552695 Assigned Surgical Provider 02/07/23 04/15/23 Geri Loza PA-C [address] [place] [address] 861195 Assigned Surgical Provider 04/16/23 Raina Patterson APRN TRACTOR OPERATOR BATTERY [address] [facility] [address] [place], [place] 235795 Nurse Practitioner Cardiovascular Disease 05/11/23 documented as of this encounter
--- OUTSIDE RECORDS SUMMARY | 2024-01-08 10:27 | XMS_ITS | Encounter Summary ---
Author Organization [place] Address [address] [place] [address] 47311 Care Team Providers Care Partner Alliance Manager Name Role Phone Roderick Morelos MD Unavailable [phone] Magno Wood MD Unavailable [phone] Sophie Ocasio Unavailable [phone] Henny Rosales DATA ANALYSIS ASSISTANT ORE PUNCHER Unavailable Sharee [address]iva RD Unavailable [phone] Kaykay Duarte PAVER INSTALLER Primary Care Provider [phone] Christiane Rodríguez MD Unavailable [phone] Luis A Escobedo MD Unavailable [phone] Chely Fernandez-C Unavailable [phone] Jing Cadena APRN GOLF CLUB MANAGER Unavailable [phone] Radha Lopez [facility] Unavailable [phone] Luis A Escobedo MD Unavailable [phone] Geri LozaC Unavailable [phone] Raina Patterson APRN ORE PUNCHER Unavailable [phone] Encounter Details Date Type Department Care Team (Late st Contact Info) Description 11/21/2022 [facility] [place] 909 [facility] 4th [place] [phone] Geri Loza PA-C [address] [place] [address] 409915 Social History Tobacco Use Types Packs/Day Years [...] documented as of this encounter Care Teams Partner Alliance Manager Relationship Specialty Start Date End Date Kaykay Duarte PAVER INSTALLER [address] [place] [address] PCP - General 10/15/22 Roderick Morelos MD [address] [place] 437275 Cardiovascular Disease 02/03/22 Magno Wood MD [address] [place] 396 [place], [place] 531425 Otolaryngology 02/21/22 Sophie Ocasio AuD 909 [place], [place] 530925 Induction Furnace Operator Audiology 02/21/22 Henny Rosales, DATA ANALYSIS ASSISTANT ORE PUNCHER [address] [place] [address] Assigned Heart and Vascular Provider 08/09/[address] [place] [address] 653345 Registered Dietitian Dietitian, Registered 09/02/22 Christiane Rodríguez MD [address] [place] [address] 396 [place] [address] Otolaryngology 11/12/22 Luis A Escobedo MD 420 [facility] 195 [place] [address] Assigned Surgical Provider 11/01/22 11/28/22 Chely Fernandez PA-C [address] [place] [address] 717335 Assigned Surgical Provider 11/29/22 02/06/23 Jing Cadena, DATA ANALYSIS ASSISTANT GOLF CLUB MANAGER 420 [facility] 450 [place] [address] Clinical Nurse Specialist Anesthesiology 01/15/23 Radha Lopez [facility] [address] [place] [address] 495965 Pharmacist Pharmacist 01/16/23 Luis A Escobedo MD [address] [facility] [facility] 195 [place] [address] Assigned Surgical Provider 02/07/23 04/15/23 Geri Loza PA-C 909 [place] [address] Assigned Surgical Provider 04/16/23 Raina Patterson APRN [facility] [address] [place], [place] 529135 Nurse Practitioner Cardiovascular Disease 05/11/23 documented as of this encounter
--- OUTSIDE RECORDS SUMMARY | 2024-01-08 10:27 | XMS_ITS | Encounter Summary ---
Author Organization [place] Address [address] [place] [address] 22389 Care Team Providers Care Barrel Reamer Name Role Phone Roderick Morelos MD Unavailable [phone] Magno Wood MD Unavailable [phone] Sophie Ocasio Unavailable [phone] Henny Rosales GEEK SQUAD MANAGER PUBLIC HEALTH SOCIAL WORKER Unavailable Sharee Oliva [address] Unavailable [phone] Kaykay Duarte BAKER BISCUIT Primary Care Provider [phone] Christiane Rodríguez MD Unavailable Luis A Escobedo MD Unavailable [phone] Chely FernandezC Unavailable [phone] Jing Cadena APRN COMPLETION MANAGER Unavailable Radha Lopez [facility] Unavailable [phone] Luis A Escobedo MD Unavailable [phone] Geri LozaC Unavailable [phone] Raina Patterson APRN PUBLIC HEALTH SOCIAL WORKER Unavailable [phone] Encounter Details Date Type Department Care Team (Late st Contact Info) Description 10/23/2022 External Order Results [facility] [address] [place] [address] Outside, Provider Class 3 severe obesity with [...] documented as of this encounter Care Teams Barrel Reamer Relationship Specialty [place] [address] [place] 486977 PCP - General 10/15/22 Roderick Morelos MD [address] [place] 818455 Cardiovascular Disease 02/03/22 Magno Wood MD [address] 317455 Otolaryngology 02/21/22 Sophie Ocasio AuD 909 [place], [place] 941655 Top Loader Audiology 02/21/22 Henny Rosales APRN PUBLIC HEALTH SOCIAL WORKER [address] [place] [address] Assigned Heart and Vascular Provider 08/09/[address] [place] [address] [phone] Registered Dietitian Dietitian, Registered 09/02/22 Christiane Rodríguez MD [address] [place] [address] 396 [place], [place] 708735 Otolaryngology 11/12/22 Luis A Escobedo MD [address] [place] [address] 672475 Assigned Surgical Provider 11/01/22 11/28/22 Chely Fernandez PA-C [address] [place] [address] 325385 Assigned Surgical Provider 11/29/22 02/06/23 Jing Cadena, GEEK SQUAD MANAGER COMPLETION MANAGER [address] [place] [address] 591755 Clinical Nurse Specialist Anesthesiology 01/15/23 Radha Lopez, [facility] [address] [place] [address] 742915 Pharmacist Pharmacist 01/16/23 Luis A Escobedo MD [address] [place] [address] 667895 Assigned Surgical Provider 02/07/23 04/15/23 Geri Loza PA-C [address] [place] [address] 554365 Assigned Surgical Provider 04/16/23 Raina Patterson APRN [facility] [address] [place] [address] Nurse Practitioner Cardiovascular Disease 05/11/23 documented as of this encounter
--- OUTSIDE RECORDS SUMMARY | 2024-01-08 10:27 | XMS_ITS | Encounter Summary ---
Author Organization [place] Address [address] [place] [address]21 Care Team Providers Care Heavy Equipment Operator/Paver Name Role Phone Roderick Morelos MD Unavailable [phone] Magno Wood MD Unavailable [phone] Sophie Ocasio Unavailable [phone] Henny Rosales MISSILE TRACKING TECHNICIAN HACK DRIVER Unavailable Sharee Oliva [address] Unavailable [phone] Kaykay Duarte COCOA POWDER MIXER OPERATOR Primary Care Provider [phone] Christiane Rodríguez MD Unavailable Luis A Escobedo MD Unavailable [phone] Chely FernandezC Unavailable [phone] Jing Cadena APRN GRINDER SET UP OPERATOR UNIVERSAL Unavailable Radha Lopez [facility] Unavailable [phone] Luis A Escobedo MD Unavailable [phone] Geri LozaC Unavailable [phone] Raina Patterson APRN HACK DRIVER Unavailable [phone] Encounter Details Date Type Department Care Team (Late st Contact Info) Description 10/23/2022 External Order Results [facility] [address] [place] [address] Outside, Provider Class 3 severe obesity with [...] - BLOOD ORDERAB LES Performing Organization Address [facility]/ZIP Co de Phone Number BREEZE PFT NON-INTERFACED [...] - BLOOD ORDERABL ES Performing Organization Address [facility]/ZIP Co de Phone Number MATTIEE PFT NON-INTERFACED [...] - BLOOD ORDERABL ES Performing Organization Address [facility]/ZIP Co de Phone Number MELIDAEZE PFT NON-INTERFACED [...] documented as of this encounter Care Teams Heavy Equipment Operator/Paver Relationship Specialty [place] [address] [place] [address] PCP - General 10/15/22 Roderick Morelos MD [address] [place], [place] 834325 Cardiovascular Disease 02/03/22 Magno Wood MD 420 [facility] 396 [place], [place] 822365 Otolaryngology 02/21/22 Sophie Ocasio AuD 909 [place], [place] 767925 Box Machine Operator Audiology 02/21/22 Henny Rosales, MISSILE TRACKING TECHNICIAN HACK DRIVER [address] [place] [address] Assigned Heart and Vascular Provider 08/09/[address] 909 [place], [place] 778335 Registered Dietitian Dietitian, Registered 09/02/22 Christiane Rodríguez MD 420 [facility] 396 [place], [place] 811945 Otolaryngology 11/12/22 Luis A Escobedo MD [address] [place] [address] 195 [place], [place] 308415 Assigned Surgical Provider 11/01/22 11/28/22 Chely Fernandez PA-C [address] [place] [address] 325145 Assigned Surgical Provider 11/29/22 02/06/23 Jing Cadena, MISSILE TRACKING TECHNICIAN GRINDER SET UP OPERATOR UNIVERSAL 420 [facility] 450 [place], [place] 844335 Clinical Nurse Specialist Anesthesiology 01/15/23 Radha Lopez [facility] 9 [place], [place] 109995 Pharmacist Pharmacist 01/16/23 Luis A Escobedo MD 420 [facility] 195 [place], [place] 592225 Assigned Surgical Provider 02/07/23 04/15/23 Geri Loza PA-C 9 [place] [address] Assigned Surgical Provider 04/16/23 Raina Patterson APRN HACK DRIVER [address] [place] [address] Nurse Practitioner Cardiovascular Disease 05/11/23 documented as of this encounter
--- OUTSIDE RECORDS SUMMARY | 2024-01-08 10:27 | XMS_ITS | Encounter Summary ---
Author Organization [place] Address [address] [place] [address] 14695 Care Team Providers Care Ibm Bpm Architect Name Role Phone Roderick Morelos MD Unavailable [phone] Magno Wood MD Unavailable Sophie Ocasio Unavailable [phone] Henny Rosales TREE SPECIALIST BSA/AML COMPLIANCE OFFICER Unavailable Sharee Oliva RD Unavailable [phone] Kaykay Duarte COMMUNITY RELATIONS POLICE LIEUTENANT Primary Care Provider [phone] Christiane Rodríguez MD Unavailable Luis A Escobedo MD Unavailable [phone] Chely Fernandez-C Unavailable [phone] Jing Cadena APRN RN ER Unavailable Radha Lopez [facility] Unavailable [phone] Luis A Escobedo MD Unavailable [phone] Geri LozaC Unavailable [phone] Raina Patterson APRN BSA/AML COMPLIANCE OFFICER Unavailable [phone] Encounter Details Date Type Department Care Team (Late st Contact Info) Description 11/03/2022 [facility] [place] 909 [facility] 4th [place] [address] Kang Griffiths Social History Tobacco [...] documented as of this encounter Care Teams Ibm Bpm Architect Relationship Specialty [place] [address] [place] [address] PCP - General 10/15/22 Roderick Morelos MD [address] [place] [address] Cardiovascular Disease 02/03/22 Magno Wood MD [address] [place] [address] 396 [place], [place] 077915 Otolaryngology 02/21/22 Sophie Ocasio, AuD [address] [place] [address] 590055 Ambulance Paramedic Audiology 02/21/22 Henny Rosales APRN BSA/AML COMPLIANCE OFFICER [address] [place] [address] Assigned Heart and Vascular Provider 08/09/[address] [place] [address] Registered Dietitian Dietitian, Registered 09/02/22 Christiane Rodríguez MD [address] [place] [address] 396 [place], [place] 584815 Otolaryngology 11/12/22 Luis A Escobedo MD [address] [place] [address] 195 [place], [place] 599495 Assigned Surgical Provider 11/01/22 11/28/22 Chely Fernandez PA-C [address] [place] [address] 922815 Assigned Surgical Provider 11/29/22 02/06/23 Jing Cadena TREE SPECIALIST RN ER 420 [facility] 450 [place], [place] 164785 Clinical Nurse Specialist Anesthesiology 01/15/23 Radha Lopez [facility] [address] [place] [address] 936735 Pharmacist Pharmacist 01/16/23 Luis A Escobedo MD [address] [place] [address] 195 [place], [place] 387775 Assigned Surgical Provider 02/07/23 04/15/23 Geri Loza PA-C 9 [place], [place] 899835 Assigned Surgical Provider 04/16/23 Raina Patterson APRN CNP [address] [place] [address] Nurse Practitioner Cardiovascular Disease 05/11/23 documented as of this encounter
--- OUTSIDE RECORDS SUMMARY | 2024-01-08 10:27 | XMS_ITS | Encounter Summary ---
Author Organization [place] Address [address] [place] [address] Care Team Providers Care Desktop Analyst Name Role Phone Roderick Morelos MD Unavailable [phone] Magno Wood MD Unavailable [phone] Sophie Ocasio AuD Unavailable Henny Rosales CHILD ATTENDANT FRETTED INSTRUMENTS INSPECTOR Unavailable Sharee Oliva RD Unavailable [phone] Kaykay Duarte MACHINE CHOCOLATE MOLDER Primary Care Provider Christiane Rodríguez MD Unavailable Chely FernandezC Unavailable [phone] Jing Cadena CHILD ATTENDANT VETERINARY PHARMACOLOGIST Unavailable [facility] Unavailable [phone] Luis A Escobedo MD Unavailable [phone] Geri LozaC Unavailable Raina Patterson CHILD ATTENDANT FRETTED INSTRUMENTS INSPECTOR Unavailable [phone] Encounter Details Date Type Department Care Team [...] documented as of this encounter Care Teams Desktop Analyst Relationship Specialty Start Date End Date Kaykay Duarte MACHINE CHOCOLATE MOLDER [address] [place] [address] PCP - General 10/15/22 Roderick Morelos MD [address] [place] [address] Cardiovascular Disease 02/03/22 Magno Wood MD 420 [facility] 396 [place], [place] 659745 Otolaryngology 02/21/22 Sophie Ocasio AuD 909 [place], [place] 676045 Material Control Supervisor Audiology 02/21/22 Henny Rosales APRN FRETTED INSTRUMENTS INSPECTOR [address] [place] [id number] Assigned Heart and Vascular Provider 08/09/[address] 909 [place], [place] 755985 Registered Dietitian Dietitian, Registered 09/02/22 Christiane Rodríguez MD 420 [facility] 396 [place], [place] 844035 Otolaryngology 11/12/22 Chely Fernandez PA-C [address] [place] [address] 855335 Assigned Surgical Provider 11/29/22 02/06/23 Jing Cadena APRN VETERINARY PHARMACOLOGIST 420 [facility] 450 [place], [place] 636175 Clinical Nurse Specialist Anesthesiology 01/15/23 Radha Lopez, [facility] [address] [place] [address] 959775 Pharmacist Pharmacist 01/16/23 Luis A Escobedo MD 420 [facility] 195 [place], [place] 175045 Assigned Surgical Provider 02/07/23 04/15/23 Geri Loza PA-C [address] [place] [address] 852795 Assigned Surgical Provider 04/16/23 Raina Patterson APRN FRETTED INSTRUMENTS INSPECTOR [address] [place] 826185 Nurse Practitioner Cardiovascular Disease 05/11/23 documented as of this encounter
--- OUTSIDE RECORDS SUMMARY | 2024-01-08 10:27 | XMS_ITS | Encounter Summary ---
Author Organization [facility] Address [address] [place] [address] 64067 Care Team Providers Care Saw Sharpener Name Role Phone Roderick Morelos MD Unavailable [phone] Magno Wood MD Unavailable [phone] Sophie Ocasio Unavailable [phone] Henny Rosales CLUB ROOM ATTENDANT MANAGER FIRE Unavailable Sharee Oliva [address] Unavailable [phone] Kaykay Duarte ENGINEERING AND OPERATIONS DIRECTOR Primary Care Provider [phone] Christiane Rodríguez MD Unavailable [phone] Luis A Escobedo MD Unavailable [phone] Chely Fernandez-C Unavailable [phone] Jing Cadena APRN MARINA PORTER Unavailable [phone] Radha Lopez [facility] Unavailable [phone] Luis A Escobedo MD Unavailable [phone] Geri LozaC Unavailable [phone] Raina Patterson CLUB ROOM ATTENDANT MANAGER FIRE Unavailable [phone] Encounter Details Date Type Department Care Team (Late st Contact Info) Description 10/16/2022 MyC Medical Advice Initial Department [facility] [place] Social History Tobacco Use Types Packs/Day Years [...] documented as of this encounter Care Teams Saw Sharpener Relationship Specialty Start Date End Date Kaykay Duarte, ENGINEERING AND OPERATIONS DIRECTOR [address] [place] [address] [place] 561097 PCP - General 10/15/22 Roderick Morelos MD [address] [place], [place] 103415 Cardiovascular Disease 02/03/22 Magno Wood MD 420 [facility] 396 [place], [place] 383895 Otolaryngology 02/21/22 Sophie Ocasio AuD 909 [place], [place] 706915 Information Technology Program Manager Audiology 02/21/22 eHnny Rosales APRN MANAGER FIRE [address] [place] [address] Assigned Heart and Vascular Provider 08/09/[address] 909 [place], [place] 604095 Registered Dietitian Dietitian, Registered 09/02/22 Christiane Rodríguez MD 420 [facility] 396 [place], [place] 418365 Otolaryngology 11/12/22 Luis A Escobedo MD [address] [place] [address] 195 [place] [address] Assigned Surgical Provider 11/01/22 11/28/22 Chely Fernandez PA-C [address] [place] [address] 143555 Assigned Surgical Provider 11/29/22 02/06/23 Jing Cadena, CLUB ROOM ATTENDANT MARINA PORTER 420 [facility] 450 [place], [place] 790525 Clinical Nurse Specialist Anesthesiology 01/15/23 Radha Lopez, [facility] 9 [place], [place] 515945 Pharmacist Pharmacist 01/16/23 Luis A Escobedo MD 420 [facility] 195 [place], [place] 135535 Assigned Surgical Provider 02/07/23 04/15/23 Geri Loza PA-C 9 [place] [address] Assigned Surgical Provider 04/16/23 Raina Patterson APRN MANAGER FIRE [address] [place] [address] Nurse Practitioner Cardiovascular Disease 05/11/23 documented as of this encounter
--- OUTSIDE RECORDS SUMMARY | 2024-01-08 10:27 | XMS_ITS | Encounter Summary ---
Author Organization [place] Address [address] [place] [address] Care Team Providers Care Hogshead Stripper Name Role Phone Roderick Morelos MD Unavailable [phone] Magno Wood MD Unavailable [phone] Sophie Ocasio Unavailable [phone] Henny Rosales NATIONAL SERVICE OFFICER MENDER KNIT GOODS Unavailable [phone] [facility] Primary Care Pr ovider Sharee Oliva RD Unavailable [phone] Kaykay Duarte TRACK INSPECTING SUPERVISOR Primary Care Provider [phone] Christiane Rodríguez MD Unavailable [phone] Luis A Escobedo MD Unavailable [phone] Chely Fernandez PA-C Unavailable [phone] Jing Cadena APRN SHIPFITTER APPRENTICE Unavailable [phone] Radha Lopez [facility] Unavailable [phone] Luis A Escobedo MD Unavailable [phone] Geri LozaC Unavailable [phone] Raina Patterson NATIONAL SERVICE OFFICER MENDER [employer] Unavailable [phone] Encounter Details Date Type Department Care Team (Late st Contact Info) Description 09/15/[address] [facility] [place] 753979 [facility] 4th [place] [address] Maria Guadalupe Wolfe Social History [...] on filedocumented in this encounter Care Teams Hogshead Stripper Relationship Specialty Start Date End Date Clinic, [facility] [place] [address] [place] [address] PCP - General 08/19/22 10/14/22 Kaykay Duarte, TRACK INSPECTING SUPERVISOR [address] [place] [address] PCP - General 10/15/22 Roderick Morelos MD [address] [place] [address] Cardiovascular Disease 02/03/22 Magno Wood MD [address] [place] [address] 334845 Otolaryngology 02/21/22 Sophie Ocasio AuD [address] [place] [address] 344155 Roving Weight Gauger Audiology 02/21/22 Henny Rosales, NATIONAL SERVICE OFFICER MENDER K[employer]IT GOODS [address] [place] [address] Assigned Heart and Vascular Provider 08/09/[address] 909 [place], [place] 026505 Registered Dietitian Dietitian, Registered 09/02/22 Christiane Rodríguez MD 420 [facility] 396 [place], [place] 530335 Otolaryngology 11/12/22 Luis A Escobedo MD [address] [place] [address] 195 [place], [place] 272295 Assigned Surgical Provider 11/01/22 11/28/22 Chely Fernandez PA-C [address] [place] [address] 489875 Assigned Surgical Provider 11/29/22 02/06/23 Jing Cadena, NATIONAL SERVICE OFFICER SHIPFITTER APPRENTICE 420 [facility] 450 [place], [place] 891125 Clinical Nurse Specialist Anesthesiology 01/15/23 Radha Lopez, [facility] [address] [place] [address] 225615 Pharmacist Pharmacist 01/16/23 Luis A Escobedo MD [address] [place] [address] 195 [place], [place] 544845 Assigned Surgical Provider 02/07/23 04/15/23 Geri Loza PA-C 909 [place] [address] Assigned Surgical Provider 04/16/23 Raina Patterson APRN MENDER KNIT GOODS [address] [place] [address] Nurse Practitioner Cardiovascular Disease 05/11/23 documented as of this encounter
--- OUTSIDE RECORDS SUMMARY | 2024-01-08 10:27 | XMS_ITS | Encounter Summary ---
Author Organization [place] Address [address] [place] [address] 6[address] Care Team Providers Care Pattern Worker Name Role Phone Roderick Morleos MD Unavailable [phone] Magno Wood MD Unavailable [phone] Sophie Ocasio AuD Unavailable [phone] Henny Rosales DIRECTOR OF OPERATIONS SUPPORT SATURATOR OPERATOR Unavailable Sharee Oliva RD Unavailable [phone] Kaykay Duarte TRAVEL COORDINATOR Primary Care Provider [phone] Christiane Rodríguez MD Unavailable Chely FernandezC Unavailable [phone] Jing Cadena DIRECTOR OF OPERATIONS SUPPORT METAL CHECKER Unavailable [phone] Radha Lopez [facility] Unavailable Luis A Escobedo MD Unavailable [phone] Geri LozaC Unavailable Raina Patterson DIRECTOR OF OPERATIONS SUPPORT SATURATOR OPERATOR Unavailable [phone] Encounter Details Date Type Department Care Team (Late st Contact Info) Description 01/09/2023 [facility] Clinic [address] [place] [address] Radha Dominguez, RN 420 [facility] 195 [place] [address] Social History Tobacco Use Types [...] documented as of this encounter Care Teams Pattern Worker Relationship Specialty [place] [address] [place] [address] PCP - General 10/15/22 Roderick Morelos MD [address] [place] [address] Cardiovascular Disease 02/03/22 Magno Wood MD 420 [facility] 396 [place], [place] 328815 Otolaryngology 02/21/22 Sophie Ocasio AuD 909 [facility] [place], [place] 933515 Campus Rep Audiology 02/21/22 Henny Rosales, DIRECTOR OF OPERATIONS SUPPORT SATURATOR OPERATOR [address] [place] [address] Assigned Heart and Vascular Provider 08/09/[address] [place] [address] 127585 Registered Dietitian Dietitian, Registered 09/02/22 Christiane Rodríguez MD 420 [facility] 396 [place], [place] 333625 Otolaryngology 11/12/22 Chely Fernandez PA-C [address] [place] [address] 513475 Assigned Surgical Provider 11/29/22 02/06/23 Jing Cadena DIRECTOR OF OPERATIONS SUPPORT METAL CHECKER [address] [place] [address] 450 [place] [address] Clinical Nurse Specialist Anesthesiology 01/15/23 Radha Lopez, [facility] [address] [place] [address] 083215 Pharmacist Pharmacist 01/16/23 Luis A Escobedo MD 420 [facility] 195 [place], [place] 928465 Assigned Surgical Provider 02/07/23 04/15/23 Geri Loza PA-C [address] [place] [address] 974335 Assigned Surgical Provider 04/16/23 Raina Patterson, DIRECTOR OF OPERATIONS SUPPORT SATURATOR OPERATOR [address] [facility] [address] [place] 721845 Nurse Practitioner Cardiovascular Disease 05/11/23 documented as of this encounter
--- OUTSIDE RECORDS SUMMARY | 2024-01-08 10:27 | XMS_ITS | Encounter Summary ---
Author Organization [place] Address [address] [place] [address] 29650 Care Team Providers Care Brazing Furnace Feeder Name Role Phone Roderick Morelos MD Unavailable [phone] Magno Wood MD Unavailable [phone] Sophie Ocasio Unavailable [phone] Henny Rosales LEAD PRINCIPAL TECHNICAL ARCHITECT GLASS ROLLING MACHINE OPERATOR Unavailable Sharee Oliva RD Unavailable [phone] Kaykay Duarte SENIOR POLICY ANALYST Primary Care Provider [phone] Christiane Rodríguez MD Unavailable Luis A Escobedo MD Unavailable [phone] Chely Fernandez-C Unavailable [phone] Jing Cadena APRN HOUSE PLAYER Unavailable Radha Lopez [facility] Unavailable [phone] Luis A Escobedo MD Unavailable [phone] Geri LozaC Unavailable [phone] Raina Patterson APRN GLASS ROLLING MACHINE OPERATOR Unavailable [phone] Encounter Details Date Type Department Care Team (Late st Contact Info) Description 11/07/[address] [facility] Weight Management [facility] [place] 909 [facility] 4th [place] [address] Geri Loza PA-C [address] [place] [address] 239685 Social History Tobacco Use Types Packs/Day Years [...] documented as of this encounter Care Teams Brazing Furnace Feeder Relationship Specialty Start Date End Date Kaykay Duarte SENIOR POLICY ANALYST [address] [place] [address] PCP - General 10/15/22 Roderick Morelos MD [address] [place] 164255 Cardiovascular Disease 02/03/22 Magno Wood MD [address] [facility] 396 [place], [place] 056905 Otolaryngology 02/21/22 Sophie Ocasio AuD 909 [place], [place] 285065 It Applications Analyst Audiology 02/21/22 Henny Rosales, LEAD PRINCIPAL TECHNICAL ARCHITECT GLASS ROLLING MACHINE OPERATOR [address] [place] [address] Assigned Heart and Vascular Provider 08/09/[address] [place] [address] 370105 Registered Dietitian Dietitian, Registered 09/02/22 Christiane Rodríguez MD [address] [place] [address] 396 [place] [address] Otolaryngology 11/12/22 Luis A Escobedo MD 420 [facility] 195 [place] [address] Assigned Surgical Provider 11/01/22 11/28/22 Chely Fernandez PA-C [address] [place] [address] 604845 Assigned Surgical Provider 11/29/22 02/06/23 Jing Cadena, LEAD PRINCIPAL TECHNICAL ARCHITECT HOUSE PLAYER 420 [facility] 450 [place] [address] Clinical Nurse Specialist Anesthesiology 01/15/23 Radha Lopez [facility] [address] [place] [address] [phone] Pharmacist Pharmacist 01/16/23 Luis A Escobedo MD [address] [facility] [facility] 195 [place] [address] Assigned Surgical Provider 02/07/23 04/15/23 Geri Lzoa PA-C 909 [place] [address] Assigned Surgical Provider 04/16/23 Raina Patterson APRN [facility] [address] [place], [place] 770375 Nurse Practitioner Cardiovascular Disease 05/11/23 documented as of this encounter
--- OUTSIDE RECORDS SUMMARY | 2024-01-08 10:27 | XMS_ITS | Encounter Summary ---
Author Organization [place] Address [address] [place] [address]608 Care Team Providers Care Railroad Design Consultant Name Role Phone Roderick Morelos MD Unavailable [phone] Magno Wood MD Unavailable [phone] Sophie Ocasio AuD Unavailable Henny Rosales MUSEUM ARCHIVIST FIREPROOF DOOR ASSEMBLER Unavailable Sharee Oliva RD Unavailable [phone] Kaykay Duarte SHELL MOLDER Primary Care Provider Christiane Rodríguez MD Unavailable Chely FernandezC Unavailable [phone] Jing Cadena MUSEUM ARCHIVIST ENGINE WIPER Unavailable Radha Lopez [facility] Unavailable Luis A Escobedo MD Unavailable [phone] Geri LozaC Unavailable [phone] Raina Patetrson MUSEUM ARCHIVIST FIREPROOF DOOR ASSEMBLER Unavailable [phone] Encounter Details Date Type Department Care Team (Late st Contact Info) Description 12/04/2022 [facility] Weight Management Clinic [address]th [place] [address] Kang Griffiths Social History Tobacco Use Types [...] documented as of this encounter Care Teams Railroad Design Consultant Relationship Specialty [place] [address] [place] [address] PCP - General 10/15/22 Roderick Morelos MD [address] [place] [address] Cardiovascular Disease 02/03/22 Magno Wood MD 420 [facility] 396 [place], [place] 549585 Otolaryngology 02/21/22 Sophie Ocasio AuD 909 [place], [place] 060215 Design Quality Engineer Audiology 02/21/22 Henny Rosales, MUSEUM ARCHIVIST FIREPROOF DOOR ASSEMBLER [address] [place] [address] Assigned Heart and Vascular Provider 08/09/[address] [place] [address] 214275 Registered Dietitian Dietitian, Registered 09/02/22 Christiane Rodríguez MD [address] [place] [address] 396 [place], [place] 765895 Otolaryngology 11/12/22 Chely Fernandez PA-C [address] [place] [address] 285685 Assigned Surgical Provider 11/29/22 02/06/23 Jing Cadena APRN ENGINE WIPER [address] [place] [address] 450 [place] [address] Clinical Nurse Specialist Anesthesiology 01/15/23 Radha Lopez, [facility] [address] [place] [address] 815425 Pharmacist Pharmacist 01/16/23 Luis A Escobedo MD 420 [facility] 195 [place], [place] 415355 Assigned Surgical Provider 02/07/23 04/15/23 Geri Loza PA-C [address] [place] [address] 052515 Assigned Surgical Provider 04/16/23 Raina Patterson, MUSEUM ARCHIVIST FIREPROOF DOOR ASSEMBLER [address] [place] 819195 Nurse Practitioner Cardiovascular Disease 05/11/23 documented as of this encounter
--- OUTSIDE RECORDS SUMMARY | 2024-01-08 10:27 | XMS_ITS | Encounter Summary ---
Author Organization [facility] Address [address] [place] [address] 0[address]11 Care Team Providers Care Engraver Jewelry Name Role Phone Roderick Morelos MD Unavailable [phone] Magno Wood MD Unavailable [phone] Sophie Ocasio Unavailable [phone] Henny Rosales AIRFRAME AND POWERPLANT MECHANIC PARK WORKER Unavailable Sharee Oliva [address] Unavailable [phone] Kaykay Duarte ASSEMBLER EQUIPMENT Primary Care Provider [phone] Christiane Rodríguez MD Unavailable Luis A Escobedo MD Unavailable [phone] Chely Fernandez-C Unavailable [phone] Jing Cadena APRN CLASSIFICATION CLERK Unavailable Radha Lopez [facility] Unavailable [phone] Luis A Escobedo MD Unavailable [phone] Geri LozaC Unavailable [phone] Raina Patterson APRN PARK WORKER Unavailable [phone] Encounter Details Date Type Department Care Team (Late st Contact Info) Description 10/17/2022 MyC Medical Advice [facility] Weight Management [facility] [place] 909 [facility] 4th [place] [address] Henny Arguello RN Social History [...] documented as of this encounter Care Teams Engraver Jewelry Relationship Specialty [place] [address] [place] [address] PCP - General 10/15/22 Roderick Morelos MD [address] [place] [address] Cardiovascular Disease 02/03/22 Magno Wood MD [address] [place] [address] 396 [place], [place] 599055 Otolaryngology 02/21/22 Sophie Ocasio, AuD [address] [place] [address] 379875 Label Drier Audiology 02/21/22 Henny Rosales APRN PARK WORKER [address] [place] [address] Assigned Heart and Vascular Provider 08/09/[address] [place] [address] 549455 Registered Dietitian Dietitian, Registered 09/02/22 Christiane Rodríguez MD [address] [place] [address] 396 [place], [place] 970415 Otolaryngology 11/12/22 Luis A Escobedo MD [address] [place] [address] 443025 Assigned Surgical Provider 11/01/22 11/28/22 Chely Fernandez PA-C [address] [place] [address] 473625 Assigned Surgical Provider 11/29/22 02/06/23 Jing Cadena APRN CLASSIFICATION CLERK [address] [place] [address] 450 [place], [place] 164365 Clinical Nurse Specialist Anesthesiology 01/15/23 Radha Lopez [facility] [address] [place] [address] 669975 Pharmacist Pharmacist 01/16/23 Luis A Escobedo MD [address] [place] [address] 195 [place], [place] 313225 Assigned Surgical Provider 02/07/23 04/15/23 Geri Loza PA-C 9 [place], [place] 254825 Assigned Surgical Provider 04/16/23 Raina Patterson APRN CNP [address] [place] [address] Nurse Practitioner Cardiovascular Disease 05/11/23 documented as of this encounter
--- OUTSIDE RECORDS SUMMARY | 2024-01-08 10:27 | XMS_ITS | Encounter Summary ---
Author Organization [place] Address [address] [place] [address] 75496 Care Team Providers Care Insurance Salesperson Name Role Phone Roderick Morelos MD Unavailable [phone] Magno Wood MD Unavailable [phone] Sophie Ocasio AuD Unavailable Henny Rosales FILLER SIFTER MACHINE TYPING SECTION CHIEF Unavailable Sharee Oliva RD Unavailable [phone] Kaykay Duarte ENDOSCOPY TECHNICIAN Primary Care Provider Christiane Rodríguez MD Unavailable Chely FernandezC Unavailable Jing Cadena FILLER SIFTER MACHINE DIRECTOR OF ESTATE Unavailable Radha Lopez [facility] Unavailable Luis A Escobedo MD Unavailable [phone] Geri LozaC Unavailable Raina Patterson FILLER SIFTER MACHINE TYPING SECTION CHIEF Unavailable [phone] Encounter Details Date Type Department Care Team (Late st Contact Info) Description 01/14/2023 [facility] [address] [place] [address] Radha Dominguez, RN 420 [facility] 195 [place] [address] Social History Tobacco Use Types [...] as of this encounter Care Teams Insurance Salesperson Relationship Specialty [place] [address] [place] [address] PCP - General 10/15/22 Roderick Morelos MD [address] [place] [address] Cardiovascular Disease 02/03/22 Magno Wood MD 420 [facility] 396 [place], [place] 609625 Otolaryngology 02/21/22 Sophie Ocasio AuD 909 [facility] [place] [place] 237455 Staff Sonographer Audiology 02/21/22 Henny Rosales, FILLER SIFTER MACHINE TYPING SECTION CHIEF [address] [place] [address] Assigned Heart and Vascular Provider 08/09/[address] [place] [address] [phone] Registered Dietitian Dietitian, Registered 09/02/22 Christiane Rodríguez MD 420 [facility] 396 [place], [place] 322745 Otolaryngology 11/12/22 Chely Fernandez PA-C [address] [place] [address] 059065 Assigned Surgical Provider 11/29/22 02/06/23 Jing Cadena FILLER SIFTER MACHINE DIRECTOR OF ESTATE [address] [place] [address] 450 [place] [address] Clinical Nurse Specialist Anesthesiology 01/15/23 Radha Lopez, [facility] [address] [place] [address] 280085 Pharmacist Pharmacist 01/16/23 Luis A Escobedo MD 420 [facility] 195 [place], [place] 172755 Assigned Surgical Provider 02/07/23 04/15/23 Geri Loza PA-C [address] [place] [address] 447595 Assigned Surgical Provider 04/16/23 Raina Patterson, FILLER SIFTER MACHINE TYPING SECTION CHIEF [address] [facility] [address] [place] 801875 Nurse Practitioner Cardiovascular Disease 05/11/23 documented as of this encounter
--- OUTSIDE RECORDS SUMMARY | 2024-01-08 10:27 | XMS_ITS | Encounter Summary ---
Author Organization [place] Address [address] [place] [address] 30609 Care Team Providers Care Tribal Judge Name Role Phone Roderick Morelos MD Unavailable [phone] Magno Wood MD Unavailable [phone] Sophie Ocasio AuD Unavailable Henny Rosales CRITICAL CARE TECHNICIAN MOTORBOAT MECHANIC INBOARD/OUTBOARD Unavailable Sharee Oliva RD Unavailable [phone] Kaykay Duarte BURLAPPER Primary Care Provider Christiane Rodríguez MD Unavailable [phone] Chely FernandezC Unavailable Jing Cadena CRITICAL CARE TECHNICIAN SEPTIC TANK INSTALLER Unavailable [phone] Radha Lopez [facility] Unavailable Luis A Escobedo MD Unavailable [phone] Geri LozaC Unavailable [phone] Raina Patterson CRITICAL CARE TECHNICIAN MOTORBOAT MECHANIC INBOARD/OUTBOARD Unavailable [phone] Encounter Details Date Type Department Care Team (Late st Contact Info) Description 01/07/2023 [facility] [address] [place] [phone] Daniela [place] Social History Tobacco Use Types [...] documented as of this encounter Care Teams Tribal Judge Relationship Specialty [place] [address] [place] [address] PCP - General 10/15/22 Roderick Morelos MD [address] [place] [address] Cardiovascular Disease 02/03/22 Magno Wood MD [address] [place] [address] 237915 Otolaryngology 02/21/22 Sophie Ocasio AuD [address] [place] [address] 854165 College Athlete Audiology 02/21/22 Henny Rosales APRN MOTORBOAT MECHANIC INBOARD/OUTBOARD [address] [place] [phone] Assigned Heart and Vascular Provider 08/09/[address] [place] [address] 498635 Registered Dietitian Dietitian, Registered 09/02/22 Christiane Rodríguez MD [address] [place] [address] 396 [place], [place] 694525 Otolaryngology 11/12/22 Chely Fernandez PA-C [address] [place] [address] 255495 Assigned Surgical Provider 11/29/22 02/06/23 Jing Cadena APRN SEPTIC TANK INSTALLER [address] [place] [address] 450 [place], [place] 258595 Clinical Nurse Specialist Anesthesiology 01/15/23 Radha Lopez, [facility] [address] [place] [address] 232425 Pharmacist Pharmacist 01/16/23 Luis A Escobedo MD [address] [place] [address] 195 [place], [place] 035175 Assigned Surgical Provider 02/07/23 04/15/23 Geri Loza PA-C [address] [place] [address] 034175 Assigned Surgical Provider 04/16/23 Raina Patterson APRN MOTORBOAT MECHANIC INBOARD/OUTBOARD [address] [facility] [address] [place], [place] 307115 Nurse Practitioner Cardiovascular Disease 05/11/23 documented as of this encounter
--- OUTSIDE RECORDS SUMMARY | 2024-01-08 10:27 | XMS_ITS | Encounter Summary ---
Author Organization [facility] Address [address] [place] [address] 97770 Care Team Providers Care Nutritional Services Host Name Role Phone Roderick Morelos MD Unavailable [phone] Magno Wood MD Unavailable [phone] Sophie Ocasio AuD Unavailable Henny Rosales CHIEF LOCK OPERATOR STORAGE BATTERY INSPECTOR Unavailable Sharee Oliva RD Unavailable [phone] Kaykay Duarte BOX LOADER Primary Care Provider Christiane Rodríguez MD Unavailable Chely FernandezC Unavailable Jing Cadena CHIEF LOCK OPERATOR PACKING AND WRAPPING SUPERVISOR Unavailable [phone] Radha Lopez [facility] Unavailable [phone] Luis A Escobedo MD Unavailable [phone] Geri LozaC Unavailable Raina Patterson CHIEF LOCK OPERATOR STORAGE BATTERY INSPECTOR Unavailable [phone] Encounter Details Date Type Department Care Team (Late st Contact Info) Description 01/09/2023 [facility] [address] [place] [address] Radha Dominguez, RN 420 [facility] 195 [place] [address] Social History Tobacco Use Types [...] documented as of this encounter Care Teams Nutritional Services Host Relationship Specialty [place] [address] [place] [address] PCP - General 10/15/22 Roderick Morelos MD [address] [place] [address] Cardiovascular Disease 02/03/22 Magno Wood MD 420 [facility] 396 [place], [place] 529955 Otolaryngology 02/21/22 Sophie Ocasio AuD 909 [facility] [place], [place] 940425 Sales And Service Agent Audiology 02/21/22 Henny Rosales, CHIEF LOCK OPERATOR STORAGE BATTERY INSPECTOR [address] [place] [phone] Assigned Heart and Vascular Provider 08/09/[address] [place] [address] 260585 Registered Dietitian Dietitian, Registered 09/02/22 Christiane Rodríguez MD 420 [facility] 396 [place], [place] 508215 Otolaryngology 11/12/22 Chely Fernandez PA-C [address] [place] [address] 392215 Assigned Surgical Provider 11/29/22 02/06/23 Jing Cadena CHIEF LOCK OPERATOR PACKING AND WRAPPING SUPERVISOR [address] [place] [address] 450 [place] [address] Clinical Nurse Specialist Anesthesiology 01/15/23 Radha Lopez, [facility] [address] [place] [address] 224495 Pharmacist Pharmacist 01/16/23 Luis A Escobedo MD 420 [facility] 195 [place], [place] 654025 Assigned Surgical Provider 02/07/23 04/15/23 Geri Loaz PA-C [address] [place] [address] 769365 Assigned Surgical Provider 04/16/23 Raina Patterson, CHIEF LOCK OPERATOR STORAGE BATTERY INSPECTOR [address] [facility] [address] [place] 755565 Nurse Practitioner Cardiovascular Disease 05/11/23 documented as of this encounter
--- OUTSIDE RECORDS SUMMARY | 2024-01-08 10:27 | XMS_ITS | Encounter Summary ---
Author Organization [facility] Address [address] [place] [address] 78970 Care Team Providers Care Advanced Manufacturing Associate Name Role Phone Roderick Morelos MD Unavailable [phone] Magno Wood MD Unavailable [phone] Sophie Ocasio Unavailable [phone] Henny Rosales MELT HOUSE DRAG OPERATOR LEI SELLER Unavailable [phone] [facility] Primary Care Pr ovider Sharee Oliva RD Unavailable [phone] Kaykay Duarte COKE BURNER Primary Care Provider [phone] Christiane Rodríguez MD Unavailable [phone] Luis A Escobedo MD Unavailable [phone] Chely Fernandez PA-C Unavailable [phone] Jing Cadena APRN AUTO BRAKE MECHANIC Unavailable [phone] [facility] Unavailable [phone] Luis A Escobedo MD Unavailable [phone] Geri LozaC Unavailable [phone] Raina Patterson MELT HOUSE DRAG OPERATOR LEI SELLER Unavailable [phone] Encounter Details Date Type Department Care Team (Late st Contact Info) Description 10/03/2022 [facility] [place] [address] [place] [address] 4th [place] [phone] Geri Loza PA-C 9 [place] [address] Social History Tobacco Use Types Packs/Day Years [...] on filedocumented in this encounter Care Teams Advanced Manufacturing Associate Relationship Specialty Start Date End Date Clinic, [place] [address] [place] [address] PCP - General 08/19/22 10/14/22 Kaykay Duarte CO[place]NER [address] [place] [address] [place] [address] PCP - General 10/15/22 Roderick Morelos MD [address] [place] [address] Cardiovascular Disease 02/03/22 Magno Wood MD [address] [place] [address] 396 [place], [place] 721145 Otolaryngology 02/21/22 Sophie Ocasio, AuD [address] [place] [address] 897995 Employee Adviser Audiology 02/21/22 Henny Rosales APRN LEI SELLER [address] [place] [address] Assigned Heart and Vascular Provider 08/09/[address] [place] [address] [phone] Registered Dietitian Dietitian, Registered 09/02/22 Christiane Rodríguez MD [address] [place] [address] 396 [place], [place] 253615 Otolaryngology 11/12/22 Luis A Escobedo MD [address] [place] [address] 048725 Assigned Surgical Provider 11/01/22 11/28/22 Chely Fernandez PA-C [address] [place] [address] 883155 Assigned Surgical Provider 11/29/22 02/06/23 Jing Cadena MELT HOUSE DRAG OPERATOR AUTO BRAKE MECHANIC [address] [place] [address] 450 [place], [place] 212775 Clinical Nurse Specialist Anesthesiology 01/15/[address] [facility] [address] [place] [address] 832815 Pharmacist Pharmacist 01/16/23 Luis A Escobedo MD [address] [place] [address] 195 [place], [place] 357735 Assigned Surgical Provider 02/07/23 04/15/23 Geri Loza PA-C 9 [place] [address] Assigned Surgical Provider 04/16/23 Raina Patterson APRN LEI SELLER [address] [place] [address] [place], [place] 861055 Nurse Practitioner Cardiovascular Disease 05/11/23 documented as of this encounter
--- OUTSIDE RECORDS SUMMARY | 2024-01-08 10:27 | XMS_ITS | Encounter Summary ---
Author Organization [facility] Address [address] [place] [address] 32435 Care Team Providers Care Equipment Washer Name Role Phone Roderick Morelos MD Unavailable [phone] Magno Wood MD Unavailable [phone] Sophie Ocasio Unavailable [phone] Henny Rosales REIMBURSEMENT SPECIALIST DESIGN PRINTING MACHINE SET UP OPERATOR Unavailable [phone] [facility] Primary Care Pr ovider Sharee Oliva RD Unavailable [phone] Kaykay Duarte PACKAGING DESIGN ENGINEER Primary Care Provider [phone] Christiane Rodríguez MD Unavailable [phone] Luis A Escobedo MD Unavailable [phone] Chely Fernandez PA-C Unavailable [phone] Jing Cadena APRN WELDER APPRENTICE Unavailable [phone] Radha Lopez [facility] Unavailable [phone] Luis A Escobedo MD Unavailable [phone] Geri LozaC Unavailable [phone] Raina Patterson REIMBURSEMENT SPECIALIST DESIGN PRINTING MACHINE SET UP OPERATOR Unavailable [phone] Encounter Details Date Type Department Care Team (Late st Contact Info) Description 09/29/2022 [facility] [place] [place] [facility] Weight Management Clinic [address] [place] [address] Kang Griffiths Social History Tobacco [...] filedocumented in this encounter Care Teams Equipment Washer Relationship Specialty Start Date End Date Clinic, [facility] [place] [address] [place] [address] PCP - General 08/19/22 10/14/22 Kaykay Duarte, PACKAGING DESIGN ENGINEER [address] [place] [address] [place] [address] PCP - General 10/15/22 Roderick Morelos MD [address] [place] [address] Cardiovascular Disease 02/03/22 Magno Wood MD [address] [place] [address] 461555 Otolaryngology 02/21/22 Sophie Ocasio AuD [address] [place] [address] 211155 Fire Prevention Engineer Audiology 02/21/22 Henny Rosales, REIMBURSEMENT SPECIALIST DESIGN PRINTING MACHINE SET UP OPERATOR [address] [place] [address] Assigned Heart and Vascular Provider 08/09/[address] 9 [place], [place] 151085 Registered Dietitian Dietitian, Registered 09/02/22 Christiane Rodríguez MD 420 [facility] 396 [place], [place] 095645 Otolaryngology 11/12/22 Luis A Escobedo MD [address] [place] [address] 725685 Assigned Surgical Provider 11/01/22 11/28/22 Chely Fernandez PA-C [address] [place] [address] 877775 Assigned Surgical Provider 11/29/22 02/06/23 Jnig Cadena, REIMBURSEMENT SPECIALIST WELDER APPRENTICE [address] [place] [address] 450 [place], [place] 332845 Clinical Nurse Specialist Anesthesiology 01/15/23 Radha Lopez, [facility] [address] [place] [address] 094475 Pharmacist Pharmacist 01/16/23 Luis A Escobedo MD [address] [place] [address] 195 [place], [place] 818165 Assigned Surgical Provider 02/07/23 04/15/23 Geri Loza PA-C 909 [place] [address] Assigned Surgical Provider 04/16/23 Raina Patterson APRN DESIGN PRINTING MACHINE SET UP OPERATOR [address] [place] [address] Nurse Practitioner Cardiovascular Disease 05/11/23 documented as of this encounter
--- OUTSIDE RECORDS SUMMARY | 2024-01-08 10:27 | XMS_ITS | Encounter Summary ---
Author Organization [facility] Address [address] [place] [address] 86861 Care Team Providers Care Milling Machine Operator Name Role Phone Roderick Morelos MD Unavailable [phone] Magno Wood MD Unavailable [phone] Sophie Ocasio AuD Unavailable Henny Rosales EMPLOYMENT SERVICES DIRECTOR SHELLFISH PROCESSING MACHINE TENDER Unavailable [phone] Unavailable [phone] Kaykay Duarte ACTIVITY LEADER Primary Care Provider Christiane Rodríguez MD Unavailable Chely FernandezC Unavailable Jing Cadena EMPLOYMENT SERVICES DIRECTOR MOTION PICTURE OPERATOR Unavailable Radha Lopez [facility] Unavailable [phone] Luis A Escobedo MD Unavailable [phone] Geri LozaC Unavailable Raina Patterson EMPLOYMENT SERVICES DIRECTOR SHELLFISH PROCESSING MACHINE TENDER Unavailable Encounter Details Date Type Department [...] as of this encounter Care Teams Milling Machine Operator Relationship Specialty Start Date End Date Kaykay Duarte ACTIVITY LEADER [address] [place] [address] PCP - General 10/15/22 Roderick Morelos MD [address] [place] [address] Cardiovascular Disease 02/03/22 Magno Wood MD 420 [facility] 396 [place], [place] 366535 Otolaryngology 02/21/22 Sophie Ocasio AuD 909 [place], [place] 253045 Cutter Machine Audiology 02/21/22 Henny Rosales APRN SHELLFISH PROCESSING MACHINE TENDER [address] [place] [address] Assigned Heart and Vascular Provider 08/09/[address] 909 [place], [place] 544535 Registered Dietitian Dietitian, Registered 09/02/22 Christiane Rodríguez MD 420 [facility] 396 [place], [place] 104135 Otolaryngology 11/12/22 Chely Fernandez PA-C [address] [place] [address] 800255 Assigned Surgical Provider 11/29/22 02/06/23 Jing Cadena APRN MOTION PICTURE OPERATOR 420 [facility] 450 [place], [place] 647805 Clinical Nurse Specialist Anesthesiology 01/15/23 Radha Lopez, [facility] [address] [place] [address] 216655 Pharmacist Pharmacist 01/16/23 Luis A Escobedo MD 420 [facility] 195 [place], [place] 374645 Assigned Surgical Provider 02/07/23 04/15/23 Geri Loza PA-C [address] [place] [address] 357615 Assigned Surgical Provider 04/16/23 Raina Patterson APRN SHELLFISH PROCESSING MACHINE TENDER [address] [place] 893385 Nurse Practitioner Cardiovascular Disease 05/11/23 documented as of this encounter
--- OUTSIDE RECORDS SUMMARY | 2024-01-08 10:27 | XMS_ITS | Encounter Summary ---
Author Organization [facility] Address [address] [place] [address] 6[address] Care Team Providers Care Neurobiologist Name Role Phone Roderick Morelos MD Unavailable [phone] Magno Wood MD Unavailable [phone] Sophie Ocasio Unavailable [phone] Henny Rosales CONTRACT ATTORNEY CLINICAL FELLOW Unavailable Sharee Oliva RD Unavailable [phone] Kaykay Duarte ATOMIC PHYSICS PROFESSOR Primary Care Provider [phone] Christiane Rodríguez MD Unavailable Luis A Escobedo MD Unavailable [phone] Chely FernandezC Unavailable [phone] Jing Cadena APRN VISUAL EDUCATION DIRECTOR Unavailable Radha Lopez [facility] Unavailable [phone] Luis A Escobedo MD Unavailable [phone] Geri LozaC Unavailable [phone] Raina Patterson APRN CLINICAL FELLOW Unavailable [phone] Encounter Details Date Type Department Care Team (Late st Contact Info) Description 10/15/2022 [facility] Medical [facility] General Surgery [facility] [place] 9[address] [facility] [address] 4th [place] [address] Luis A Escobedo MD [address] [place] [address] [facility] 195 [place], [place] 774625 Social History Tobacco Use Types Packs/Day Years [...] documented as of this encounter Care Teams Neurobiologist Relationship Specialty [place] [address] [place] [address] PCP - General 10/15/22 Roderick Morelos MD [address] [place] 939675 Cardiovascular Disease 02/03/22 Magno Wood MD [address] [place] [address] [facility] 396 [place], [place] 214025 Otolaryngology 02/21/22 Sophie Ocasio AuD 909 [place], [place] 730435 Chemical Weigher Audiology 02/21/22 Henny Rosales, CONTRACT ATTORNEY CLINICAL FELLOW [address] [place] [address] Assigned Heart and Vascular Provider 08/09/[address] [place] [address] 369825 Registered Dietitian Dietitian, Registered 09/02/22 Christiane Rodríguez MD [address] [place] [address] 396 [place] [address] Otolaryngology 11/12/22 Luis A Escobedo MD 420 [facility] 195 [place] [address] Assigned Surgical Provider 11/01/22 11/28/22 Chely Fernandez PA-C [address] [place] [address] 269015 Assigned Surgical Provider 11/29/22 02/06/23 Jing Cadena, CONTRACT ATTORNEY VISUAL EDUCATION DIRECTOR 420 [facility] 450 [place] [address] Clinical Nurse Specialist Anesthesiology 01/15/[address] [facility] [address] [place] [address] 572205 Pharmacist Pharmacist 01/16/23 Luis A Escobedo MD [address] [place] [address] [facility] 195 [place] [address] Assigned Surgical Provider 02/07/23 04/15/23 Geri Loza PA-C 909 [place] [address] Assigned Surgical Provider 04/16/23 Raina Patterson APRN [facility] [address] [place], [place] 866645 Nurse Practitioner Cardiovascular Disease 05/11/23 documented as of this encounter
--- OUTSIDE RECORDS SUMMARY | 2024-01-08 10:28 | XMS_ITS | Encounter Summary ---
Author Organization [facility] Address [address] [place] [address] 11450 Care Team Providers Care Knit Goods Washer Name Role Phone [facility] Primary Care Provider Unavailable Roderick Morelos MD Unavailable [phone] Roderick Morelos MD Unavailable [phone] Magno Wood MD Unavailable Sophie Ocasio AuD Unavailable [phone] Parth Ellis MD Unavailable [phone] Roderick Morelos MD Unavailable [phone] Henny Rosales APRN LEGAL AID Unavailable [phone] [facility] Primary Care Pr ovider Sharee Oliva RD Unavailable [phone] Kaykay Duarte ELIGIBILITY SPECIALIST Primary Care Provider Christiane Rodríguez MD Unavailable [phone] Luis A Escobedo MD Unavailable [phone] Chely Fernandez PA-C Unavailable [phone] Jing Cadena MILLER HELPER SCREENING TECHNICIAN Unavailable [phone] Radha Lopez [facility] Unavailable [phone] Luis A Escobedo MD Unavailable Geri Loza PA-C Unavailable Raina Patterson APRN LEGAL AID Unavailable [phone] Encounter Details Date Type Department Care Team (Late st Contact Info) Description 04/08/2022 [facility] Medical Advice [facility] [place] 6405 [facility] [address] [place] [phone] Suha Wade, RN Social History Tobacco Use [...] Coronavirus/COVID-19? No / Unsure 04/09/2022 6:[address] [place] documented as of this encounter Plan of Treatment Not on file documented as of this encounter Visit Diagnoses Not on filedocumented in this encounter Care Teams Knit Goods Washer Relationship Specialty Start Date End Date Ernestina Martini PCP - General Family Practice 10/12/19 08/18/22 [facility] [place] [address] [place] [address] PCP - General 08/19/22 10/14/22 [place] [address] [place] [address] PCP - General 10/15/22 Roderick Morelos MD [address] [place] [address] Cardiovascular Disease 02/03/22 Roderick Morelos MD [address] [place] [address] Assigned Heart and Vascular Provider 02/15/22 07/18/22 Magno Wood MD [address] [place] [address] 331625 Otolaryngology 02/21/22 Sophie Ocasio AuD 9 [place], [place] 371875 [facility] 02/21/22 Parth Ellis MD [address] [place] 752965 Assigned Heart and Vascular Provider 07/19/22 07/25/22 Roderick Morelos MD [address] [place] [address] Assigned Heart and Vascular Provider 07/26/22 08/08/22 Henny Rosales, MILLER HELPER LEGAL AID [address] [place] [address] Assigned Heart and Vascular Provider 08/09/22 Sharee Oliva, RD [address] [place] [address] 933785 Registered Dietitian Dietitian, Registered 09/02/22 Christiane Rodríguez MD [address] [place] [address] 897295 Otolaryngology 11/12/22 Luis A Escobedo MD [address] [address] Assigned Surgical Provider 11/01/22 11/28/22 Chely Fernandez PA-C 909 [place], [place] 798795 Assigned Surgical Provider 11/29/22 02/06/23 Jing Cadena APRN SCREENING TECHNICIAN [address] 257055 Clinical Nurse Specialist Anesthesiology 01/15/23 Radha Lopez, [facility] [address] [place] [address] 924585 Pharmacist Pharmacist 01/16/23 Luis A Escobedo MD [address] [address] Assigned Surgical Provider 02/07/23 04/15/23 Geri Loza PA-C 909 [place] [address] Assigned Surgical Provider 04/16/23 Raina Patterson APRN LEGAL AID [address] [place] 160655 Nurse Practitioner Cardiovascular Disease 05/11/23 documented as of this encounter
--- OUTSIDE RECORDS SUMMARY | 2024-01-08 10:28 | XMS_ITS | Encounter Summary ---
Author Organization [place] Address [address] [place] [address] Care Team Providers Care C Unix Developer Name Role Phone Barrington Agudelo PA-C Primary Care Provider + [phone] Magno Wood MD Unavailable [facility] Primary Care Provider Unavailable Parth Ellis MD Unavailable [phone] Tati Ayala MD Unavailable +[phone] Khris Butt MD Unavailable +[phone] MorelosRoderick nunes MD Unavailable [phone] Roderick Morelos MD Unavailable +[phone] Magno Wood MD Unavailable [phone] Sophie Ocasio Unavailable +[phone] Parth Ellis MD Unavailable +[phone] MorelosRoderick nunes MD Unavailable +[phone] Henny Rosales APRN SANIPRACTIC PHYSICIAN Unavailable [phone] [facility] Primary Care Pr ovider Sharee Oliva RD Unavailable [phone] Kaykay Duarte NP Primary Care Provider [phone] Christiane Rodríguez MD Unavailable +[phone] Luis A Escobedo MD Unavailable + [phone] Chely Fernandez PA-C Unavailable [phone] Cadena Jing Susie [facility]ES [facility] Unavailable + [phone] Radha Lopez [facility] Unavailable +[phone] Luis A Escobedo MD Unavailable + [phone] Geri Loza PA-C Unavailable +[phone] Yesenia Raina FUENTES SANIPRACTIC PHYSICIAN Unavailable Encounter Details Date Type Department Care Team (Late st Contact Info) Description 05/07/2011 Office Visit-[facility] Heart [facility] 6405 [facility] [address] [place] [address] Reji Li MD 6405 [facility] [address] [place] [address] Social History Tobacco Use Types [...] was 89. ALT was 15. From her scientific informatics leader, her electrolytes in October werenormal. Creatinine was [...] Mother - Age 34, cancer-breast; Half-Brother - [place]; Sister 1 - CAD; SOCIAL HISTORY Alcohol [...] Rule Out COVID-19 03/19/2020 03/19/202003/19/2020 6:22 PM WATCH SUPERVISOR COVID-19 03/19/2020 03/19/2020 04/09/2020 11:3 9 PM WATCH SUPERVISOR Rule Out COVID-19 06/19/2021 06/19/2021 06/19/2021 1:37 AM CDT Rule Out COVID-19 10/29/2021 10/29/2021 10/29/2021 1:07 AM CDT documented as of this encounter Care Teams C Unix Developer Relationship Specialty Start Date End Date Barrington Agudelo PA-C [facility] [address] [place] [address] PCP - General 05/04/12 10/11/19 Ernestina Martini [address] [facility] 396 [place] [address] PCP - General Family Practice 10/12/19 08/18/22 [facility] [place] [address] [place] [address] PCP - General 08/19/22 10/14/22 Kaykay Duarte VENEER SPLICER [address] [place], [place] 502327 PCP - General 10/15/22 Magno Wood MD [address] 247165 Otolaryngology 05/29/15 08/02/17 Parth Ellis MD [address] [place] 231925 Assigned Heart and Vascular Provider 01/13/20 12/13/21 Tati Ayala MD [address] [place], [place] 166180 Assigned Endocrinology Provider 01/13/20 12/29/20 Khris Butt MD [address] [place] [address] [place] [address] Assigned Heart and Vascular Provider 12/14/21 02/14/22 Roderick Morelos MD [address] [place] [address] Cardiovascular Disease 02/03/22 Roderick Morelos MD [address] [place] [address] Assigned Heart and Vascular Provider 02/15/22 07/18/22 Magno Wood MD [address] [place] [address] Otolaryngology 02/21/22 Sophie Ocasio AuD [address] [place] [address] 867785 Electrical Tech/Project Manager Audiology 02/21/22 Parth Ellis MD [address] [place] [address] Assigned Heart and Vascular Provider 07/19/22 07/25/22 Roderick Morelos MD [address] [place] [address] Assigned Heart and Vascular Provider 07/26/22 08/08/22 Henny Rosales, ACADEMIC AFFAIRS COORDINATOR SANIPRACTIC PHYSICIAN [address] [place] [address] Assigned Heart and Vascular Provider 08/09/[address] [place], [place] 118445 Registered Dietitian Dietitian, Registered 09/02/22 Christiane Rodríguez MD 420 [facility] 396 [place], [place] 017635 Otolaryngology 11/12/22 Luis A Escobedo MD [address] [place] [address] 930905 Assigned Surgical Provider 11/01/22 11/28/22 Chely Fernandez PA-C [address] [place] [address] 325325 Assigned Surgical Provider 11/29/22 02/06/23 Jing Cadena, ACADEMIC AFFAIRS COORDINATOR ENDLESS TRACK VEHICLE MECHANIC [address] [place] [address] 450 [place], [place] 238775 Clinical Nurse Specialist Anesthesiology 01/15/23 Radha Lopez, [facility] [address] [place] [address] 297245 Pharmacist Pharmacist 01/16/23 Luis A Escobedo MD [address] [place] [address] 764075 Assigned Surgical Provider 02/07/23 04/15/23 Geri Loza PA-C [address] [place] [address]08 Assigned Surgical Provider 04/16/23 Raina Patterson APRN SANIPRACTIC PHYSICIAN [address] [place] [address] Nurse Practitioner Cardiovascular Disease 05/11/23 documented as of this encounter
--- OUTSIDE RECORDS SUMMARY | 2024-01-08 10:28 | XMS_ITS | Encounter Summary ---
Author Organization [place] Address [address] [place] [address] Care Team Providers Care Vegetable Canner Name Role Phone [facility] Primary Care Provider Unavailable Khris Butt MD Unavailable [phone] MorelosRoderick nunes MD Unavailable +[phone] Roderick Morelos MD Unavailable [phone] Magno Wood MD Unavailable Sophie Ocasio Unavailable +[phone] Parth Ellis MD Unavailable MorelosRoderick nunes MD Unavailable [phone] Henny Rosales APRN ALLIANCE CONSULTANT Unavailable +[phone] [facility] [place] Primary Care Pr ovider Sharee Oliva RD Unavailable [phone] Kaykay Duarte DIRECTOR BIOMEDICAL ENGINEERING Primary Care Provider Christiane Rodríguez MD Unavailable +[phone] Luis A Escobedo MD Unavailable [phone] Chely FernandezC Unavailable +[phone] Jing Cadena APRN LIDAR TECHNICIAN Unavailable +[phone] JessicaRadha [facility] Unavailable [phone] Luis A Escobedo MD Unavailable Geri LozaC Unavailable Raina Patterson APRN ALLIANCE CONSULTANT Unavailable Encounter Details Date Type Department Care Team (Late st Contact Info) Description 02/11/2022 [facility] Medical Advice [facility] [place] 6405 [facility] [address] [place] [address] Rowena Stockton [...] Coronavirus/COVID-19? No / Unsure 02/10/2022 4:12 PM PHOTOLITHOGRAPHIC STRIPPER documented as of this encounter Plan of Treatment Not on file documented as of this encounter Visit Diagnoses Not on filedocumented in this encounter Care Teams Vegetable Canner Relationship Specialty Start Date End Date Ernestina Martini PCP - General Family Practice 10/12/19 08/18/22 [facility] [address] [place], [place] 663447 PCP - General 08/19/22 10/14/22 Kaykay Duarte DIRECTOR BIOMEDICAL ENGINEERING [address] [place] [address] [place] 832527 PCP - General 10/15/22 Khris Butt MD 6406 [facility] [address] [place] 095435 Assigned Heart and Vascular Provider 12/14/21 02/14/22 Roderick Morelos MD [address] [place] [address] Cardiovascular Disease 02/03/22 Roderick Morelos MD [address] [place] [address] Assigned Heart and Vascular Provider 02/15/22 07/18/22 Magno Wood MD [address] [place] [address] 452415 Otolaryngology 02/21/22 Sophie Ocasio AuD 909 [place], [place] 150995 Ceo And Founder Audiology 02/21/22 Parth Ellis MD [address] [place] 563835 Assigned Heart and Vascular Provider 07/19/22 07/25/22 Roderick Morelos MD [address] [place] [address] Assigned Heart and Vascular Provider 07/26/22 08/08/22 Henny Rosales APRN ALLIANCE CONSULTANT [address] [place] [address] Assigned Heart and Vascular Provider 08/09/[address]09 [place], [place] 610165 Registered Dietitian Dietitian, Registered 09/02/22 Christiane Rodríguez MD 420 [facility] 396 [place], [place] 639635 Otolaryngology 11/12/22 Luis A Escobedo MD 420 [facility] 195 [place], [place] 280195 Assigned Surgical Provider 11/01/22 11/28/22 Chely Fernandez PA-C [address] [place] [address] 830745 Assigned Surgical Provider 11/29/22 02/06/23 Jing Cadena APRN LIDAR TECHNICIAN [address] [place] [address] 450 [place], [place] 486335 Clinical Nurse Specialist Anesthesiology 01/15/23 Radha Lopez, [facility] [address] [place] [address] 886925 Pharmacist Pharmacist 01/16/23 Luis A Escobedo MD [address] [place] [address] Assigned Surgical Provider 02/07/23 04/15/23 Geri Loza PA-C [address] [place] [address] 850615 Assigned Surgical Provider 04/16/23 Raina Patterson APRN ALLIANCE CONSULTANT [address] [facility] [address] [place] 236155 Nurse Practitioner Cardiovascular Disease 05/11/23 documented as of this encounter
--- OUTSIDE RECORDS SUMMARY | 2024-01-08 10:28 | XMS_ITS | Encounter Summary ---
Author Organization [place] Address [address] [place] [address] Care Team Providers Care Ballistician Name Role Phone [facility] Primary Care Provider Unavailable Roderick Morelos MD Unavailable [phone] Roderick Morelos MD Unavailable Magno Wood MD Unavailable [phone] Sophie Ocasio AuD Unavailable +[phone] Parth Ellis MD Unavailable +[phone] Roderick Morelos MD Unavailable [phone] Henny Rosales APRN E MAIL SYSTEM ADMINISTRATOR Unavailable [phone] [facility] Primary Care Pr ovider Sharee Oliva RD Unavailable [phone] Kaykay Duarte PROFESSIONAL APPLICATION DESIGNER Primary Care Provider Christiane Rodríguez MD Unavailable + [phone] Luis A Escobedo MD Unavailable [phone] Chely Fernandez PA-C Unavailable +[phone] Jing Cadena MARGARINE CHURN OPERATOR SENIOR ELECTRICAL ESTIMATOR Unavailable [phone] Radha Lopez [facility] Unavailable [phone] Luis A Escobedo MD Unavailable Geri Loza PA-C Unavailable UzielkeriRaina APRN E MAIL SYSTEM ADMINISTRATOR Unavailable Encounter Details Date Type Department Care Team (Late st Contact Info) Description 04/01/2022 [facility] [address] 4th [place] [address] [facility] Social History Tobacco Use Types Packs/Day Years [...] on filedocumented in this encounter Care Teams Ballistician Relationship Specialty Start Date End Date Ernestina Martini PCP - General Family Practice 10/12/19 08/18/22 [facility] [address] [place] [address] PCP - General 08/19/22 10/14/22 Kaykay Duarte PROFESSIONAL APPLICATION DESIGNER [address] [place] [address] PCP - General 10/15/22 Roderick Morelos MD [address] [place] 898985 Cardiovascular Disease 02/03/22 Roderick Morelos MD [address] [place] [address] Assigned Heart and Vascular Provider 02/15/22 07/18/22 Magno Wood MD 420 [facility] 396 [place], [place] 457245 Otolaryngology 02/21/22 Sophie Ocasio AuD [address] [place] [address] 917825 Shot Hole Driller Audiology 02/21/22 Parth Ellis MD [address] [place], [place] 312565 Assigned Heart and Vascular Provider 07/19/22 07/25/22 Roderick Morelos MD [address] [place] [address] Assigned Heart and Vascular Provider 07/26/22 08/08/22 Henny Rosales, MARGARINE CHURN OPERATOR E MAIL SYSTEM ADMINISTRATOR [address] [place] [address] Assigned Heart and Vascular Provider 08/09/22 Sharee Oliva, RD [address] [place] [address] 657305 Registered Dietitian Dietitian, Registered 09/02/22 Christiane Rodríguez MD 420 [facility] 396 [place], [place] 734915 Otolaryngology 11/12/22 Luis A Escobedo MD [address] [place] [address] 525015 Assigned Surgical Provider 11/01/22 11/28/22 Chely Fernandez PA-C 909 [place], [place] 237485 Assigned Surgical Provider 11/29/22 02/06/23 Jing Cadena APRN SENIOR ELECTRICAL ESTIMATOR 420 [facility] 450 [place], [place] 901025 Clinical Nurse Specialist Anesthesiology 01/15/23 Radha Lopez, [facility] 909 [place], [place] 249225 Pharmacist Pharmacist 01/16/23 Luis A Escobedo MD 420 [facility] 195 [place], [place] 233325 Assigned Surgical Provider 02/07/23 04/15/23 Geri Loza PA-C 909 [place], [place] 525135 Assigned Surgical Provider 04/16/23 Raina Patterson APRN E MAIL SYSTEM ADMINISTRATOR [address] [facility] [address] [place] 768385 Nurse Practitioner Cardiovascular Disease 05/11/23 documented as of this encounter
--- OUTSIDE RECORDS SUMMARY | 2024-01-08 10:28 | XMS_ITS | Encounter Summary ---
Author Organization [facility] Address [address] [place] [address]50 Care Team Providers Care Coder Operator Name Role Phone Roderick Mroelos MD Unavailable [phone] Magno Wood MD Unavailable [phone] Sophie Ocasio Unavailable [phone] Henny Rosales DIRECT MAIL MANAGER IUSS MASTER ANALYST Unavailable [phone] [facility] Primary Care Pr ovider Sharee Oliva RD Unavailable [phone] Kaykay Duarte FOOD AND BEVERAGE ASSISTANT Primary Care Provider [phone] Christiane Rodríguez MD Unavailable [phone] Luis A Escobedo MD Unavailable +[phone] Chely Fernandez PA-C Unavailable +[phone] Jing Cadena APRN CREAM DIPPER Unavailable + [phone] Radha Lopez [facility] Unavailable +[phone] Luis A Escobedo MD Unavailable +[phone] Geri LozaC Unavailable [phone] Raina Patterson DIRECT MAIL MANAGER IUSS MASTER ANALYST Unavailable +[phone] Encounter Details Date Type Department Care Team (Late st Contact Info) Description 08/25/2022 Telephone [facility] [address] [place] [address] Geri Loza PA-C 9 [place] [address] Social History Tobacco Use Types Packs/Day Years [...] on filedocumented in this encounter Care Teams Coder Operator Relationship Specialty Start Date End Date Clinic, [place] N[place]ent [place] [address] [place], [place] 523497 PCP - General 08/19/22 10/14/22 Kaykay Duarte, FOOD AND BEVERAGE ASSISTANT [address] [place] [address] PCP - General 10/15/22 Roderick Morelos MD [address] [place], [place] 839205 Cardiovascular Disease 02/03/22 Magno Wood MD [address] [place] [address] 396 [place] [address] Otolaryngology 02/21/22 Sophie Ocasio AuD 909 [place], [place] 174555 Display Artist Audiology 02/21/22 Henny Rosales APRN IUSS MASTER ANALYST [address] [place] [address] Assigned Heart and Vascular Provider 08/09/[address] 909 [place], [place] 903515 Registered Dietitian Dietitian, Registered 09/02/22 Christiane Rodríguez MD [address] [place] [address] 396 [place] [address] Otolaryngology 11/12/22 Luis A Escobedo MD [address] [place] [address] 195 [place], [place] 443465 Assigned Surgical Provider 11/01/22 11/28/22 Chely Fernandez PA-C 909 [place], [place] 936415 Assigned Surgical Provider 11/29/22 02/06/23 Jing Cadena APRN CREAM DIPPER 420 [facility] 450 [place] [address] Clinical Nurse Specialist Anesthesiology 01/15/23 Radha Lopez, [facility] [address] [place] [address] 836915 Pharmacist Pharmacist 01/16/23 Luis A Escobedo MD 420 [facility] 195 [place], [place] 702885 Assigned Surgical Provider 02/07/23 04/15/23 Geri Loza PA-C [address] [place] [address] 336835 Assigned Surgical Provider 04/16/23 Raina Patterson APRN IUSS MASTER ANALYST [address] [place] 022965 Nurse Practitioner Cardiovascular Disease 05/11/23 documented as of this encounter
--- OUTSIDE RECORDS SUMMARY | 2024-01-08 10:28 | XMS_ITS | Encounter Summary ---
Author Organization [place] Address [address] [place] [address]2497 Care Team Providers Care Plastic Tile Setter Name Role Phone [facility] Primary Care Provider Unavailable Roderick Morelos MD Unavailable [phone] Roderick Morelos MD Unavailable [phone] Magno Wood MD Unavailable [phone] Sophie Ocasio AuD Unavailable +[phone] Parth Ellis MD Unavailable [phone] Roderick Morelos MD Unavailable [phone] Henny Rosales APRN FRONT SIGHT ATTACHER Unavailable +[phone] [facility] Primary Care Pr ovider Sharee Oliva RD Unavailable [phone] Kaykay Duarte HOTEL BAGGAGE HANDLER Primary Care Provider Christiane Rodríguez MD Unavailable + [phone] Luis A Escobedo MD Unavailable [phone] Chely Fernandez PA-C Unavailable +[phone] Jing Cadena HAND MEAT SALTER DRUPAL PHP DEVELOPER Unavailable +[phone] Radha Lopez [facility] Unavailable [phone] Luis A Escobedo MD Unavailable Geri Loza PA-C Unavailable [phone] Raina Patterson APRN FRONT SIGHT ATTACHER Unavailable [phone] Encounter Details Date Type Department Care Team (Late st Contact Info) Description 05/14/2022 [facility] Medical Advice [facility] Ear Nose and Throat Clinic [address] 4th [place] [address] Jessi Mantilla LPN Social History [...] on filedocumented in this encounter Care Teams Plastic Tile Setter Relationship Specialty Start Date End Date Ernestina Martini PCP - General Family Practice 10/12/19 08/18/22 [facility] [address] [place] [address] PCP - General 08/19/22 10/14/22 [place] [address] [place] [address] PCP - General 10/15/22 Roedrick Morelos MD [address] [place] 343525 Cardiovascular Disease 02/03/22 Roderick Morelos MD [address] [place] [address] Assigned Heart and Vascular Provider 02/15/22 07/18/22 Magno Wood MD 420 [facility] 396 [place], [place] 130695 Otolaryngology 02/21/22 Sophie Ocasio AuD 909 [place], [place] 077605 Modular Home Crew Member Audiology 02/21/22 Parth [place] MD [address] [place], [place] 977985 Assigned Heart and Vascular Provider 07/19/22 07/25/22 Roderick Morelos MD [address] [place] 254905 Assigned Heart and Vascular Provider 07/26/22 08/08/22 Henny Rosales, HAND MEAT SALTER FRONT SIGHT ATTACHER [address] [place] [address] Assigned Heart and Vascular Provider 08/09/22 Sharee Oliva, ÁNGEL [address] [place] [address] 308655 Registered Dietitian Dietitian, Registered 09/02/22 Christiane Rodríguez MD 420 [facility] 396 [place], [place] 601915 Otolaryngology 11/12/22 Luis A Escobedo MD [address] [place] [address] 454715 Assigned Surgical Provider 11/01/22 11/28/22 Chely Fernandez PA-C 909 [place], [place] 255565 Assigned Surgical Provider 11/29/22 02/06/23 Jing Cadena APRN DRUPAL PHP DEVELOPER 420 [facility] 450 [place] [address] Clinical Nurse Specialist Anesthesiology 01/15/23 Radha Lopez, [facility] 9 [place], [place] 838945 Pharmacist Pharmacist 01/16/23 Luis A Escobedo MD 420 [facility] 195 [place], [place] 249205 Assigned Surgical Provider 02/07/23 04/15/23 Geri Loza PA-C 909 [place], [place] 224385 Assigned Surgical Provider 04/16/23 Raina Patterson, GINA FRONT SIGHT ATTACHER [address] [place] 395245 Nurse Practitioner Cardiovascular Disease 05/11/23 documented as of this encounter
--- OUTSIDE RECORDS SUMMARY | 2024-01-08 10:28 | XMS_ITS | Encounter Summary ---
Author Organization [facility] Address [address] [place] [address]702 Care Team Providers Care Wraparound Facilitator Name Role Phone [place] [facility] [place] Primary Care Provider Unavailable Parth Ellis MD Unavailable [phone] Tati Ayala MD Unavailable [phone] Khris Butt MD Unavailable [phone] MorelosRoderick nunes MD Unavailable [phone] Roderick Morelos MD Unavailable [phone] Magno Wood MD Unavailable [phone] Sophie Ocasio Unavailable [phone] Parth Ellis MD Unavailable +[phone] Roderick Morelos MD Unavailable [phone] Henny Rosales APRN DOG FOOD SHREDDER OPERATOR Unavailable [phone] [facility] Jovanna [place] Primary Care Pr ovider Sharee Oliva RD Unavailable [phone] Kaykay Duarte PIPE FINISHING SUPERVISOR Primary Care Provider Christiane Rodríguez MD Unavailable [phone] Luis A Escobedo MD Unavailable +[phone] Chely Fernandez PA-C Unavailable [phone] CadenaJing jacob Susie ROBOTIC TOY INVENTOR SAWMILL EQUIPMENT OPERATOR Unavailable +[phone] Radha Lopez Estuardo [facility] Unavailable Luis A Escobedo MD Unavailable +[phone] SevenGeri klein Lucila [facility] Unavailable [phone] Raina Patterson ROBOTIC TOY INVENTOR DOG FOOD SHREDDER OPERATOR Unavailable Encounter Details Date Type Department [...] documented as of this encounter Care Teams Wraparound Facilitator Relationship Specialty Start Date End Date Ernestina Martini PCP - General Family Practice 10/12/19 08/18/22 [facility] [address] [place], [place] [address]67 PCP - General 08/19/22 10/14/22 [place] [address] [place] [address] PCP - General 10/15/22 Parth [place] MD [address] [place] 231715 Assigned Heart and Vascular Provider 01/13/20 12/13/21 Tati Ayala MD [address] [place], [place] [address]1920 Assigned Endocrinology Provider 01/13/20 12/29/20 Khris Butt MD [address] [facility] [address] [place] [address] Assigned Heart and Vascular Provider 12/14/21 02/14/22 Roderick Morelos MD [address] [place] [address] Cardiovascular Disease 02/03/22 Roderick Morelos MD [address] [place] [address] Assigned Heart and Vascular Provider 02/15/22 07/18/22 Magno Wood MD [address] [place] [address] 874045 Otolaryngology 02/21/22 Sophie Ocasio AuD [address] [place] [address] 509245 Industrial Service Technician Audiology 02/21/22 Parth Ellis MD [address] [place] 271595 Assigned Heart and Vascular Provider 07/19/22 07/25/22 Roderick Morelos MD [address] [place] [address] Assigned Heart and Vascular Provider 07/26/22 08/08/22 Henny Rosales APRN DOG FOOD SHREDDER OPERATOR [address] [place] [address] Assigned Heart and Vascular Provider 08/09/[address] 9 [place], [place] 735605 Registered Dietitian Dietitian, Registered 09/02/22 Christiane Rodríguez MD [address] [place] [address] 396 [place], [place] 089665 Otolaryngology 11/12/22 Luis A Escobedo MD [address] [place] [address] 195 [place], [place] 171145 Assigned Surgical Provider 11/01/22 11/28/22 Chely Fernandez PA-C [address] [place] [address] 020175 Assigned Surgical Provider 11/29/22 02/06/23 Jing Cadena APRN SAWMILL EQUIPMENT OPERATOR [address] [place] [address] 450 [place], [place] 582925 Clinical Nurse Specialist Anesthesiology 01/15/23 Radha Lopez, [facility] [address] [place] [address] Pharmacist Pharmacist 01/16/23 Luis A Escobedo MD [address] [place] [address] 195 [place] [address] Assigned Surgical Provider 02/07/23 04/15/23 Geri Loza PA-C [address] [place] [address] 7[address] Assigned Surgical Provider 04/16/23 Raina Patterson APRN [facility] [address] [place] [address] Nurse Practitioner Cardiovascular Disease 05/11/23 documented as of this encounter
--- OUTSIDE RECORDS SUMMARY | 2024-01-08 10:28 | XMS_ITS | Encounter Summary ---
Author Organization [place] Address [address] [place] [address]60 Care Team Providers Care Boom Tender Name Role Phone [facility] Provider Unavailable Roderick Morelos MD Unavailable [phone] Roderick Morelos MD Unavailable [phone] Magno Wood MD Unavailable [phone] Sophie Ocasio AuD Unavailable +[phone] Parth Ellis MD Unavailable [phone] Roderick Morelos MD Unavailable [phone] Henny Rosales APRN SUPERVISOR [facility] Unavailable [phone] [facility], [facility] Primary Care Pr ovider Sharee Oliva RD Unavailable [phone] Kaykay Duarte GROOMING SALON MANAGER Primary Care Provider Christiane Rodríguez MD Unavailable + [phone] Luis A Escobedo MD Unavailable +[phone] Chely Fernandez PA-C Unavailable +[phone] Jing Cadena SATURATION EQUIPMENT OPERATOR PICK UP OPERATOR Unavailable +[phone] Radha Lopez [facility] Unavailable +[phone] Luis A Escobedo MD Unavailable Geri Loza PA-C Unavailable Raina Patterson APRN SUPERVISOR [facility] Unavailable [phone] Encounter Details Date Type Department Care Team (Late st Contact Info) Description 05/26/2022 [facility] [address] 4th [place] [address] Jessi Mantilla LPN Social History [...] on filedocumented in this encounter Care Teams Boom Tender Relationship Specialty Start Date End Date Ernestina Martini PCP - General Family Practice 10/12/19 08/18/22 [facility] [address] [place] [address] PCP - General 08/19/22 10/14/22 [place] [address] [place] [address] PCP - General 10/15/22 Roderick Morelos MD [address] [place] 741605 Cardiovascular Disease 02/03/22 Roderick Morelos MD [address] [place] [address] Assigned Heart and Vascular Provider 02/15/22 07/18/22 Magno Wood MD 420 [facility] 396 [place], [place] 986385 Otolaryngology 02/21/22 Sophie Ocasio AuD 909 [place], [place] 442635 Immigration Associate Audiology 02/21/22 Parth Ellis MD [address] [place], [place] 014425 Assigned Heart and Vascular Provider 07/19/22 07/25/22 Roderick Morelos MD [address] [place] 212125 Assigned Heart and Vascular Provider 07/26/22 08/08/22 Henny Rosales, SATURATION EQUIPMENT OPERATOR SUPERVISOR [facility] [address] [place] [address] Assigned Heart and Vascular Provider 08/09/22 Sharee Oliva, ÁNGEL [address] [place] [address] 048255 Registered Dietitian Dietitian, Registered 09/02/22 Christiane Rodríguez MD 420 [facility] 396 [place], [place] 398955 Otolaryngology 11/12/22 Luis A Escobedo MD [address] [place] [address] 146915 Assigned Surgical Provider 11/01/22 11/28/22 Chely Fernandez PA-C 909 [place], [place] 673715 Assigned Surgical Provider 11/29/22 02/06/23 Jing Cadena APRN PICK UP OPERATOR 420 [facility] 450 [place] [address] Clinical Nurse Specialist Anesthesiology 01/15/23 Radha Lopez, [facility] 9 [place], [place] 768735 Pharmacist Pharmacist 01/16/23 Luis A Escobedo MD 420 [facility] 195 [place], [place] 848125 Assigned Surgical Provider 02/07/23 04/15/23 Geri Loza PA-C 909 [place], [place] 894675 Assigned Surgical Provider 04/16/23 Raina Patterson, GINA SUPERVISOR [facility] [address] [place] 726675 Nurse Practitioner Cardiovascular Disease 05/11/23 documented as of this encounter
--- OUTSIDE RECORDS SUMMARY | 2024-01-08 10:28 | XMS_ITS | Encounter Summary ---
Author Organization [place] Address [address] [place] [address]60 Care Team Providers Care Geometry Teacher Name Role Phone Roderick Morelos MD Unavailable [phone] Magno Wood MD Unavailable Sophie Ocasio Unavailable +[phone] Henny Rosales SALES OFFICE ADMINISTRATOR IRON AND STEEL WORK SUPERVISOR Unavailable +[phone] [facility] Primary Care Pr ovider Sharee Oliva RD Unavailable [phone] Kaykay Duarte AUDIO VISUAL COORDINATOR Primary Care Provider [phone] Christiane Rodríguez MD Unavailable +[phone] Luis A Escobedo MD Unavailable +[phone] Chely Fernandez PA-C Unavailable +[phone] Jing Cadena APRN CELL OPERATION SUPERVISOR Unavailable + [phone] Radha Lopez [facility] Unavailable +[phone] Luis A Escobedo MD Unavailable +[phone] Geri LozaC Unavailable [phone] Raina Patterson SALES OFFICE ADMINISTRATOR IRON AND STEEL WORK SUPERVISOR Unavailable +[phone] Encounter Details Date Type Department Care Team (Late st Contact Info) Description 09/02/[address] [facility] [address] [place] [address] Kang Griffiths Social History Tobacco [...] on filedocumented in this encounter Care Teams Geometry Teacher Relationship Specialty Start [place] [address] [place] [address] PCP - General 08/19/22 10/14/22 Kaykay Duarte NP [address] [place] [address] [place] [address] PCP - General 10/15/22 Roderick Morelos MD [address] [place], [place] 509395 Cardiovascular Disease 02/03/22 Magno Wood MD [address] [place] [address] 742265 Otolaryngology 02/21/22 Sophie Ocasio, AuD [address] [place] [address] Subway Train Driver Audiology 02/21/22 Henny Rosales, SALES OFFICE ADMINISTRATOR IRON AND STEEL WORK SUPERVISOR [address] [place] [address] Assigned Heart and Vascular Provider 08/09/[address] [place] [address] 387855 Registered Dietitian Dietitian, Registered 09/02/22 Christiane Rodríguez MD [address] [place] [address] 396 [place], [place] 288735 Otolaryngology 11/12/22 Luis A Escobedo MD [address] [place] [address] 853265 Assigned Surgical Provider 11/01/22 11/28/22 Chely Fernandez PA-C [address] [place] [address] 719475 Assigned Surgical Provider 11/29/22 02/06/23 Jing Cadena, SALES OFFICE ADMINISTRATOR CELL OPERATION SUPERVISOR [address] [place] [address] 450 [place], [place] 383585 Clinical Nurse Specialist Anesthesiology 01/15/23 Radha Lopez, [facility] [address] [place] [address] 006735 Pharmacist Pharmacist 01/16/23 Luis A Escobedo MD [address] [place] [address] 195 [place], [place] 408995 Assigned Surgical Provider 02/07/23 04/15/23 Geri Loza PA-C 9 [place] [address] Assigned Surgical Provider 04/16/23 Raina Patterson APRN [facility] [address] [facility] [address] [place] [address] Nurse Practitioner Cardiovascular Disease 05/11/23 documented as of this encounter
--- OUTSIDE RECORDS SUMMARY | 2024-01-08 10:28 | XMS_ITS | Encounter Summary ---
Author Organization [place] Address [address] [place] [address] Care Team Providers Care Flame Annealing Machine Setter Name Role Phone Roderick Morelos MD Unavailable [phone] Magno Wood MD Unavailable Sophie Ocasio Unavailable +[phone] Henny Rosales HEEL BREASTER BUILDING ADMIN Unavailable [phone] [facility] Primary Care Pr ovider Sharee Oliva RD Unavailable +[phone] Kaykay Duarte HAIR COLORIST Primary Care Provider [phone] Christiane Rodríguez MD Unavailable +[phone] Luis A Escobedo MD Unavailable +[phone] Chely Fernandez PA-C Unavailable [phone] Jing Cadena APRN [facility] Unavailable + [phone] Radha Lopez [facility] Unavailable +- [phone] Luis A Escobedo MD Unavailable +[phone] Geri LozaC Unavailable [phone] Raina Patterson HEEL BREASTER BUILDING ADMIN Unavailable +[phone] Encounter Details Date Type Department Care Team (Late st Contact Info) Description 09/09/2022 Telephone [facility] [place] [address] [place] [address] 4th [place] [address] Geri Loza PA-C 909 [place] [address] Social History Tobacco Use Types Packs/Day Years [...] Geri Gaytan had suggested Marquez. Please advise. [phone] okay to leave VM or send MyChart, patient isn't always able to answer when she's working documented in this encounter Plan of Treatment Not on file documented as of this encounter Visit Diagnoses Not on filedocumented in this encounter Care Teams Flame Annealing Machine Setter Relationship Specialty Start [place] [address] [place] [address] PCP - General 08/19/22 10/14/22 Kaykay Duarte HAIR COLORIST [address] [place] [address] PCP - General 10/15/22 Roderick Morelos MD [address] [place] [address] Cardiovascular Disease 02/03/22 Magno Wood MD [address] [place] [address] 396 [place] [address] Otolaryngology 02/21/22 Sophie Ocasio AuD 9 [place] [address] Hedis Analyst Audiology 02/21/22 Henny Rosales APRN BUILDING ADMIN [address] [place] [address] Assigned Heart and Vascular Provider 08/09/[address] [place] [address] 202345 Registered Dietitian Dietitian, Registered 09/02/22 Christiane Rodríguez MD [address] [place] [address] Otolaryngology 11/12/22 Luis A Escobedo MD [address] [place] [address] Assigned Surgical Provider 11/01/22 11/28/22 Chely Fernandez PA-C [address] [place] [address] Assigned Surgical Provider 11/29/22 02/06/23 Jing Cadena APRN [facility] 420 [facility] 450 [place], [place] 416555 Clinical Nurse Specialist Anesthesiology 01/15/23 Radha Lopez, [facility] 909 [place], [place] 190655 Pharmacist Pharmacist 01/16/23 Luis A Escobedo MD 420 [facility] 195 [place], [place] 550855 Assigned Surgical Provider 02/07/23 04/15/23 Geri Loza PA-C 909 [place] [address] Assigned Surgical Provider 04/16/23 Raina Patterson APRN BUILDING ADMIN [address] [place] 569625 Nurse Practitioner Cardiovascular Disease 05/11/23 documented as of this encounter
--- OUTSIDE RECORDS SUMMARY | 2024-01-08 10:28 | XMS_ITS | Encounter Summary ---
Author Organization [place] Address [address] [place] [address] Care Team Providers Care Spring Former Name Role Phone Roderick Morelos MD Unavailable [phone] Magno Wood MD Unavailable Sophie Ocasio Unavailable +[phone] Henny Rosales CAPONIZER GUIDE PLANT Unavailable [phone] [facility] Primary Care Pr ovider Sharee Oliva RD Unavailable [phone] Kaykay Duarte PIPELINE INSPECTOR Primary Care Provider [phone] Christiane Rodríguez MD Unavailable +[phone] Luis A Escobedo MD Unavailable +[phone] Chely Fernandez PA-C Unavailable +[phone] Jing Cadena APRN MARINE FIRE FIGHTER Unavailable + [phone] Radha Lopez [facility] Unavailable +[phone] Luis A Escobedo MD Unavailable +[phone] Geri LozaC Unavailable [phone] Raina Patterson CAPONIZER GUIDE PLANT Unavailable +[phone] Encounter Details Date Type Department Care Team (Late st Contact Info) Description 09/02/2022 MyC Medical Advice [facility] [place] [address] [place] [address] 4th [place] [address] Geri Loza PA-C 909 [place] [address] Social History Tobacco Use Types Packs/Day Years [...] on filedocumented in this encounter Care Teams Spring Former Relationship Specialty Start [place] [address] [place] [address] PCP - General 08/19/22 10/14/22 Kaykay Duarte NP [address] [place] [address] Dr [place] 487877 PCP - General 10/15/22 Roderick Morelos MD [address] [place], [place] 583975 Cardiovascular Disease 02/03/22 Magno Wood MD [address] [place] [address] 396 [place], [place] 522255 Otolaryngology 02/21/22 Sophie Ocasio AuD [address] [place] [address] 462815 Chartered Wealth Manager Audiology 02/21/22 Henny Rosales APRN GUIDE PLANT [address] [place] [address] Assigned Heart and Vascular Provider 08/09/[address] [place] [address] Registered Dietitian Dietitian, Registered 09/02/22 Christiane Rodríguez MD [address] [place] [address] 396 [place] [address] Otolaryngology 11/12/22 Luis A Escobedo MD [address] [place] [address] 195 [place] [address] Assigned Surgical Provider 11/01/22 11/28/22 Chely Fernandez PA-C [address] [place] [address] 551345 Assigned Surgical Provider 11/29/22 02/06/23 Jing Cadena APRN MARINE FIRE FIGHTER [address] [place] [address] 450 [place] [address] Clinical Nurse Specialist Anesthesiology 01/15/23 Radha Lopez, [facility] [address] [place] [address] Pharmacist Pharmacist 01/16/23 Luis A Escobedo MD 420 [facility] 195 [place], [place] 738405 Assigned Surgical Provider 02/07/23 04/15/23 Geri Loza PA-C 909 [place], [place] 390485 Assigned Surgical Provider 04/16/23 Raina Patterson APRN GUIDE PLANT [address] [place], [place] 951015 Nurse Practitioner Cardiovascular Disease 05/11/23 documented as of this encounter
--- OUTSIDE RECORDS SUMMARY | 2024-01-08 10:28 | XMS_ITS | Encounter Summary ---
Author Organization [place] Address [address] [place] [address]36 Care Team Providers Care Carbon Sequestration Plant Operator Name Role Phone Roderick Morelos MD Unavailable [phone] Magno Wood MD Unavailable [phone] Sophie Ocasio Unavailable +[phone] Henny Rosales DECATOR OPERATOR CSW Unavailable [phone] [facility] Primary Care Pr ovider Sharee Oliva RD Unavailable [phone] Kaykay Duarte [employer] ADVISOR Primary Care Provider [phone] Christiane Rodríguez MD Unavailable +[phone] Luis A Escobedo MD Unavailable +[phone] Chely Fernandez PA-C Unavailable [phone] Jing Cadena APRN MECHANICAL SPECIALIST Unavailable + [phone] Radha Lopez [facility] Unavailable +[phone] Luis A Escobedo MD Unavailable +[phone] Geri LozaC Unavailable [phone] Raina Patterson DECATOR OPERATOR CSW Unavailable +[phone] Encounter Details Date Type Department Care Team (Late st Contact Info) Description 09/02/2022 MyC Medical Advice [facility] [place] [address] [place] [address] 4th [place] [address] Geri Loza PA-C 909 [place] [address] Social History Tobacco Use Types Packs/Day Years [...] on filedocumented in this encounter Care Teams Carbon Sequestration Plant Operator Relationship Specialty Start [place] [address] [place] [address] PCP - General 08/19/22 10/14/22 Kaykay Duarte NP [address] [place] [address] Dr [place] [id number] PCP - General 10/15/22 Roderick Morelos MD [address] [place], [place] 833665 Cardiovascular Disease 02/03/22 Magno Wood MD [address] [place] [address] 396 [place], [place] 979655 Otolaryngology 02/21/22 Sophie Ocasio AuD [address] [place] [address] 366715 Casino Dealer Audiology 02/21/22 Henny Rosales APRN CSW [address] [place] [address] Assigned Heart and Vascular Provider 08/09/[address] [place] [address] Registered Dietitian Dietitian, Registered 09/02/22 Christiane Rodríguez MD [address] [place] [address] 396 [place] [address] Otolaryngology 11/12/22 Luis A Escobedo MD [address] [place] [address] 195 [place] [address] Assigned Surgical Provider 11/01/22 11/28/22 Chely Fernandez PA-C [address] [place] [address] 400505 Assigned Surgical Provider 11/29/22 02/06/23 Jing Cadena APRN MECHANICAL SPECIALIST [address] [place] [address] 450 [place] [address] Clinical Nurse Specialist Anesthesiology 01/15/23 Radha Lopez, [facility] [address] [place] [address] Pharmacist Pharmacist 01/16/23 Luis A Escobedo MD 420 [facility] 195 [place], [place] 945615 Assigned Surgical Provider 02/07/23 04/15/23 Geri Loza PA-C 909 [place], [place] 260515 Assigned Surgical Provider 04/16/23 Raina Patterson APRN CSW [address] [place], [place] 017315 Nurse Practitioner Cardiovascular Disease 05/11/23 documented as of this encounter
--- OUTSIDE RECORDS SUMMARY | 2024-01-08 10:28 | XMS_ITS | Encounter Summary ---
Author Organization [place] Address [address] [place] [address] Care Team Providers Care Tugger Operator Name Role Phone Roderick Morelos MD Unavailable [phone] Magno Wood MD Unavailable [phone] Sophie Ocasio Unavailable [phone] Henny Rosales CHIEF INSPECTOR GIFT BASKET PACKER Unavailable [phone] [facility] Primary Care Pr ovider Sharee Oliva RD Unavailable [phone] Kaykay Duarte STROBOROMA OPERATOR Primary Care Provider [phone] Christiane Rodríguez MD Unavailable [phone] Luis A Escobedo MD Unavailable +[phone] Chely Fernandez PA-C Unavailable +[phone] Jing Cadena APRN BUSINESS SERVICES REPRESENTATIVE Unavailable + [phone] Radha Lopez [facility] Unavailable +[phone] Luis A Escobedo MD Unavailable +[phone] Geri LozaC Unavailable [phone] Raina Patterson CHIEF INSPECTOR GIFT BASKET PACKER Unavailable +[phone] Encounter Details Date Type Department Care Team (Late st Contact Info) Description 09/09/2022 MyC Medical Advice [facility] [address]th [place] [address] Tanya Larsen RN Social History [...] on filedocumented in this encounter Care Teams Tugger Operator Relationship Specialty Start Date End Date Clinic, [place] [address] [place] [address] PCP - General 08/19/22 10/14/22 Kaykay Duarte, STROBOROMA OPERATOR [address] [place] [address] [facility] [place] [address] PCP - General 10/15/22 Roderick Morelos MD [address] [place], [place] 691695 Cardiovascular Disease 02/03/22 Magno Wood MD [address] [place] [address] 159005 Otolaryngology 02/21/22 Sophie Ocasio AuD [address] [place] [address] 875035 Bowling Alley Mechanic Audiology 02/21/22 Henny Rosales, CHIEF INSPECTOR GIFT BASKET PACKER [address] [place] [address] Assigned Heart and Vascular Provider 08/09/[address] 909 [place] [address] Registered Dietitian Dietitian, Registered 09/02/22 Christiane Rodríguez MD 420 [facility] 396 [place], [place] 810785 Otolaryngology 11/12/22 Luis A Escobedo MD [address] [place] [address] 124845 Assigned Surgical Provider 11/01/22 11/28/22 Chely Fernandez PA-C [address] [place] [address] 079485 Assigned Surgical Provider 11/29/22 02/06/23 Jing Cadena, CHIEF INSPECTOR BUSINESS SERVICES REPRESENTATIVE [address] [place] [address] 450 [place], [place] 651095 Clinical Nurse Specialist Anesthesiology 01/15/23 Radha Lopez, [facility] [address] [place] [address] 014095 Pharmacist Pharmacist 01/16/23 Luis A Escobedo MD [address] [place] [address] 195 [place], [place] 596625 Assigned Surgical Provider 02/07/23 04/15/23 Geri Loza PA-C 909 [place] [address] Assigned Surgical Provider 04/16/23 Raina Patterson APRN GIFT BASKET PACKER [address] [place] [address] Nurse Practitioner Cardiovascular Disease 05/11/23 documented as of this encounter
--- OUTSIDE RECORDS SUMMARY | 2024-01-08 10:28 | XMS_ITS | Encounter Summary ---
Author Organization [place] Address [address] [place] [address]20 Care Team Providers Care Senior Benefits Specialist Name Role Phone Roderick Morelos MD Unavailable [phone] Magno Wood MD Unavailable [phone] Sophie Ocasio Unavailable [phone] Henny Rosales TAKE OFF WORKER WEED ERADICATOR Unavailable [phone] [facility] Primary Care Pr ovider Sharee Oliva RD Unavailable [phone] Kaykay Duarte REAL TIME TRADER Primary Care Provider [phone] Christiane Rodríguez MD Unavailable +[phone] Luis A Escobedo MD Unavailable +[phone] Chely Fernandez PA-C Unavailable +[phone] Jing Cadena APRN INFORMIX DEVELOPER Unavailable + [phone] [facility] Unavailable +[phone] Luis A Escobedo MD Unavailable +[phone] Geri LozaC Unavailable [phone] Raina Patterson TAKE OFF WORKER WEED ERADICATOR Unavailable +[phone] Encounter Details Date Type Department Care Team (Late st Contact Info) Description 09/15/2022 [facility] [place] [address] [facility] 4th [place] [address] Kang Griffiths Social History Tobacco [...] filedocumented in this encounter Care Teams Senior Benefits Specialist Relationship Specialty Start Date End Date [place] [address] [place] [address] PCP - General 08/19/22 10/14/22 Kaykay Duarte, REAL TIME TRADER [address] [place] [address] PCP - General 10/15/22 Roderick Morelos MD [address] [place] [address] Cardiovascular Disease 02/03/22 Magno Wood MD [address] [place] [address] 719165 Otolaryngology 02/21/22 Sophie Ocasio AuD [address] [place] [address] 157975 Cdl Truck Driver Audiology 02/21/22 Henny Rosales, TAKE OFF WORKER WEED ERADICATOR [address] [place] [address] Assigned Heart and Vascular Provider 08/09/[address] 909 [place], [place] 771415 Registered Dietitian Dietitian, Registered 09/02/22 Christiane Rodríguez MD 420 [facility] 396 [place], [place] 939225 Otolaryngology 11/12/22 Luis A Escobedo MD [address] [place] [address] 195 [place], [place] 115085 Assigned Surgical Provider 11/01/22 11/28/22 Chely Fernandez PA-C [address] [place] [address] 666335 Assigned Surgical Provider 11/29/22 02/06/23 Jing Cadena, TAKE OFF WORKER INFORMIX DEVELOPER 420 [facility] 450 [place], [place] 091195 Clinical Nurse Specialist Anesthesiology 01/15/23 Radha Lopez, [facility] [address] [place] [address] 170525 Pharmacist Pharmacist 01/16/23 Luis A Escobedo MD [address] [place] [address] 195 [place], [place] 640805 Assigned Surgical Provider 02/07/23 04/15/23 Geri Loza PA-C 909 [place] [address] Assigned Surgical Provider 04/16/23 Raina Patterson APRN WEED ERADICATOR [address] [place] [address] Nurse Practitioner Cardiovascular Disease 05/11/23 documented as of this encounter
--- OUTSIDE RECORDS SUMMARY | 2024-01-08 10:28 | XMS_ITS | Encounter Summary ---
Author Organization [facility] Address [address] [place] [address] Care Team Providers Care Car Lot Attendant Name Role Phone Elvia Nugent [place] Primary Care Provider Unavailable Roderick Morelos MD Unavailable [phone] Magno Wood MD Unavailable Sophie Ocasio Unavailable +[phone] Henny Rosales WAX PATTERN REPAIRER CREDIT ADMINISTRATOR Unavailable [phone] [facility] [place] Jovanna [place] Primary Care Pr ovider Sharee Oliva RD Unavailable [phone] Kaykay Duarte POTATO GRADER Primary Care Provider [phone] Christiane Rodríguez MD Unavailable +[phone] Luis A Escobedo MD Unavailable +[phone] Chely FernandezC Unavailable +[phone] Jing Cadena APRN PLASTICS REPAIRER Unavailable +[phone] Radha Lopez [facility] Unavailable [phone] Luis A Escobedo MD Unavailable +[phone] Geri Loza PAEddaC Unavailable +[phone] Ekman, Raina WAX PATTERN REPAIRER CREDIT ADMINISTRATOR Unavailable [phone] Encounter Details Date Type Department Care Team (Late st Contact Info) Description 08/16/2022 [facility] [address] 4th [place] [address] Kang Griffiths Social History Tobacco [...] on filedocumented in this encounter Care Teams Car Lot Attendant Relationship Specialty Start Date End Date Ernestina Martini PCP - General Family Practice 10/12/19 08/18/22 [facility] [address] [place] [address] PCP - General 08/19/22 10/14/22 [place] [address] [place] [address] PCP - General 10/15/22 Roderick Morelos MD [address] [place] 125445 Cardiovascular Disease 02/03/22 Magno Wood MD [address] [place] [facility] 396 [place], [place] 648415 Otolaryngology 02/21/22 Sophie Ocasio AuD 9 [place], [place] 025125 Physician President Audiology 02/21/22 Henny Rosales APRN CREDIT ADMINISTRATOR [address] [place] [address] Assigned Heart and Vascular Provider 08/09/[address] [place] [address] 823845 Registered Dietitian Dietitian, Registered 09/02/22 Christiane Rodríguez MD 420 [facility] 396 [place], [place] 674605 Otolaryngology 11/12/22 Luis A Escobedo MD 420 [facility] 195 [place] [address] Assigned Surgical Provider 11/01/22 11/28/22 Chely Fernandez PA-C [address] [place] [address] Assigned Surgical Provider 11/29/22 02/06/23 Jing Cadena APRN PLASTICS REPAIRER 420 [facility] 450 [place] [address] Clinical Nurse Specialist Anesthesiology 01/15/23 Radha Lopez, [facility] [address] [place] [address] 709955 Pharmacist Pharmacist 01/16/23 Luis A Escobedo MD 420 [facility] 195 [place], [place] 322165 Assigned Surgical Provider 02/07/23 04/15/23 Geri Loza PA-C 909 [place], [place] 621945 Assigned Surgical Provider 04/16/23 Raina Patterson APRN CREDIT ADMINISTRATOR [address] [facility] [address] [place] 536035 Nurse Practitioner Cardiovascular Disease 05/11/23 documented as of this encounter
--- OUTSIDE RECORDS SUMMARY | 2024-01-08 10:28 | XMS_ITS | Encounter Summary ---
Author Organization [place] Address [address] [place] [address] Care Team Providers Care Help Desk Assistant Name Role Phone Barirngton Agudelo PA-C Primary Care Provider + [phone] Magno Wood MD Unavailable [phone] [facility] Primary Care Provider Unavailable Parth Ellis MD Unavailable +[phone] Tati Ayala MD Unavailable +[phone] Khris Butt MD Unavailable +[phone] MorelosRoderick nunes MD Unavailable [phone] Roderick Morelos MD Unavailable [phone] Magno Wood MD Unavailable Sophie Ocasio Unavailable +[phone] Parth Ellis MD Unavailable +[phone] MorelosRoderick nunes MD Unavailable [phone] Henny Rosales APRN GUEST SERVICE TEAM LEADER Unavailable [phone] [facility] Primary Care Pr ovider Sharee Oliva RD Unavailable [phone] Kaykay Duarte NP Primary Care Provider Christiane Rodríguez MD Unavailable +[phone] Luis A Escobedo MD Unavailable + [phone] Chely Fernandez PA-C Unavailable [phone] Cadena Jing Susie FUENTES [facility] Unavailable + [phone] Radha Lopez [facility] Unavailable [phone] Luis A Escobedo MD Unavailable +[phone] Geri Loza PA-C Unavailable +[phone] Raina Patterson GINA GUEST SERVICE TEAM LEADER Unavailable [phone] Encounter Details Date Type Department Care Team (Late st Contact Info) Description 08/21/2011 Office Visit-[facility] [place] [id number] [place] [address] Dane Rosa MD Social History [...] old Referring Physician: BARRINGTON LARA Referring Clinic: [facility] CURRENT DIAGNOSES 1. - Hypercholesterolemia, [...] Mother - Age 34, cancer-breast; Half-Brother - [place]; Sister 1 - CAD; SOCIAL HISTORY Alcohol [...] Out COVID-19 03/19/2020 03/19/2020 03/19/2020 6:22 PM LARRY OPERATOR COVID-19 03/19/2020 03/19/2020 04/09/2020 11:3 9 PM LARRY OPERATOR Rule Out COVID-19 06/19/2021 06/19/2021 06/19/2021 1:37 AM CDT Rule Out COVID-19 10/29/2021 10/29/2021 10/29/2021 1:07 AM CDT documented as of this encounter Care Teams Help Desk Assistant Relationship Specialty Start Date End Date Barrington Agudelo PA-C [facility] [address] [facility] 102 [place], [place] 165078 PCP - General 05/04/12 10/11/19 Ernestina Martini 420 [facility] 396 [place] [address] PCP - General Family Practice 10/12/19 08/18/22 [facility] [address] [facility] [place] [address] PCP - General 08/19/22 10/14/22 [place] [address] [place] [address] PCP - General 10/15/22 Magno Wood MD 420 [facility] 396 [place], [place] 418565 Otolaryngology 05/29/15 08/02/17 Parth Ellis MD [address] [place] [address] Assigned Heart and Vascular Provider 01/13/20 12/13/21 Tati Ayala MD [address] [place] [address] [place], [place] 969830 Assigned Endocrinology Provider 01/13/20 12/29/20 Khris Butt MD [address] [place] [address] [place] 869695 Assigned Heart and Vascular Provider 12/14/21 02/14/22 Roderick Morelos MD [address] [place] 069125 Cardiovascular Disease 02/03/22 Roderick Morelos MD [address] [place] 105925 Assigned Heart and Vascular Provider 02/15/22 07/18/22 Magno oWod MD [address] [place] [address] 008275 Otolaryngology 02/21/22 Sophie Ocasio AuD [address] [place] [address] 894375 Branch Mechanic Audiology 02/21/22 Parth Ellis MD [address] [place], [place] 142755 Assigned Heart and Vascular Provider 07/19/22 07/25/22 Roderick Morelos MD [address] [place], [place] 897795 Assigned Heart and Vascular Provider 07/26/22 08/08/22 Henny Rosales APRN GUEST SERVICE TEAM LEADER [address] [place] [phone] Assigned Heart and Vascular Provider 08/09/[address] [place] [address] 668945 Registered Dietitian Dietitian, Registered 09/02/22 Christiane Rodríguez MD [address] [place] [address] 841055 Otolaryngology 11/12/22 Luis A Escobedo MD [address] [place] [address] 729625 Assigned Surgical Provider 11/01/22 11/28/22 Chely Fernandez PA-C 909 [place] [address] Assigned Surgical Provider 11/29/22 02/06/23 Jing Cadena APRN ANALYST GEOCHEMICAL PROSPECTING 420 [facility] 450 [place], [place] 062475 Clinical Nurse Specialist Anesthesiology 01/15/23 Radha Lopez [facility] [address] [place] [address] 407345 Pharmacist Pharmacist 01/16/23 Luis A Escobedo MD [address] [place] [address] 195 [place] [address] Assigned Surgical Provider 02/07/23 04/15/23 Geri Loza PA-C [address] [place] [address] 512565 Assigned Surgical Provider 04/16/23 Raina Patterson APRN GUEST SERVICE TEAM LEADER [address] [place] [address] [place] 872455 Nurse Practitioner Cardiovascular Disease 05/11/23 documented as of this encounter
--- OUTSIDE RECORDS SUMMARY | 2024-01-08 10:28 | XMS_ITS | Encounter Summary ---
Author Organization [facility] Address [address] [place] [address] Care Team Providers Care Billet Shearer Name Role Phone Roderick Morelos MD Unavailable [phone] Magno Wood MD Unavailable [phone] Sophie Ocasio Unavailable +[phone] Henny Rosales MATHEMATICAL SCIENTIST MARKETING SUPPORT SPECIALIST Unavailable +[phone] [facility] Primary Care Pr ovider Sharee Oliva RD Unavailable [phone] Kaykay Duarte COMPENSATOR WORKER Primary Care Provider [phone] Christiane Rodríguez MD Unavailable [phone] Luis A Escobedo MD Unavailable +[phone] Chely Fernandez PA-C Unavailable +[phone] Jing Cadena MATHEMATICAL SCIENTIST PAVING SUPERVISOR Unavailable + [phone] Radha Lopez [facility] Unavailable +[phone] Luis A Escobedo MD Unavailable +[phone] Geri Loza PA-C Unavailable +[phone] Raina Patterson MATHEMATICAL SCIENTIST MARKETING SUPPORT SPECIALIST Unavailable [phone] Reason for Visit * Reason Onset Date Comments Prior Auth - Medication 09/03/2022 Orlistat -PA DENIED Encounter Details Date Type Department Care Team (Late st Contact Info) Description 09/03/2022 Telephone [facility] [address] [place] [address] Geri Loza PA-C 909 [place], [place] 273105 Prior Auth - Medication (Orlistat-PA DENIED ) [...] Team PA Initiation Medication: Orlistat Insurance Company: [employer] - Pharmacy Filling the Rx: [id number] - [place], [place] - [address] [place] Filling Pharmacy Filling Pharmacy Fax: Start Date: [...] ?? G[facility]2020 [facility] [...] than what is on RX) Name: [id number] - [place] - [address] [place] * Telephone Encounter - Rowena Small - 09/03/2022 8:44 AM CDT Reason for Call: Prior Auth Detailed comments: Pt states [facility] said a PA is [...] on filedocumented in this encounter Care Teams Billet Shearer Relationship Specialty Start Date End Date Clinic, [place] [address] [place] [address] PCP - General 08/19/22 10/14/22 Kaykay Duarte, COMPENSATOR WORKER [address] [place] [address] PCP - General 10/15/22 Roderick Morelos MD [address] [place] [address] Cardiovascular Disease 02/03/22 Magno Wood MD [address] [place] [address] 396 [place], [place] 462555 Otolaryngology 02/21/22 Sophie Ocasio AuD [address] [place] [address] 075365 Glass Technician Audiology 02/21/22 Henny Rosales APRN MARKETING SUPPORT SPECIALIST [address] [place] [address] Assigned Heart and Vascular Provider 08/09/[address] [place] [address] 286625 Registered Dietitian Dietitian, Registered 09/02/22 Christiane Rodríguez MD 420 [facility] 396 [place], [place] 842435 Otolaryngology 11/12/22 Luis A Escobedo MD 420 [facility] 195 [place], [place] 459665 Assigned Surgical Provider 11/01/22 11/28/22 Chely Fernandez PA-C [address] [place] [address] 496315 Assigned Surgical Provider 11/29/22 02/06/23 Jing Cadena APRN PAVING SUPERVISOR 420 [facility] 450 [place], [place] 939405 Clinical Nurse Specialist Anesthesiology 01/15/23 JessicaRadha, [facility] [address] [place] [address] 809105 Pharmacist Pharmacist 01/16/23 Luis A Escobedo MD 420 [facility] 195 [place], [place] 843085 Assigned Surgical Provider 02/07/23 04/15/23 Geri Loza PA-C 909 [place], [place] 995315 Assigned Surgical Provider 04/16/23 Raina Patterson, GINA MARKETING SUPPORT SPECIALIST [address] [place], [place] 787065 Nurse Practitioner Cardiovascular Disease 05/11/23 documented as of this encounter
--- OUTSIDE RECORDS SUMMARY | 2024-01-08 10:28 | XMS_ITS | Encounter Summary ---
Author Organization [place] Address [address] [place] [address] Care Team Providers Care Enrollment Clerk Name Role Phone Roderick Morelos MD Unavailable [phone] Magno Wood MD Unavailable [phone] Sophie Ocasio Unavailable +[phone] Henny Rosales CNC MILLING MACHINE OPERATOR NODULIZER Unavailable [phone] [facility] Primary Care Pr ovider Sharee Oliva RD Unavailable [phone] Kaykay Duarte DISBURSEMENT CLERK Primary Care Provider [phone] Christiane Rodríguez MD Unavailable [phone] Luis A Escobedo MD Unavailable +[phone] Chely Fernandez PA-C Unavailable [phone] Jing Cadena APRN SUPERVISOR CENTRAL SUPPLY Unavailable + [phone] [facility] Unavailable +[phone] Luis A Escobedo MD Unavailable +[phone] Geri LozaC Unavailable [phone] Raina Patterson CNC MILLING MACHINE OPERATOR NODULIZER Unavailable +[phone] Encounter Details Date Type Department Care Team (Late st Contact Info) Description 08/19/2022 Telephone M [facility] [place] [address] [place] [address] 4th [place] [address] Geri Loza PA-C 9[address] [place] [address] Social History Tobacco Use Types Packs/Day Years [...] her insurance won't pay for them at [place] and she needs the lab orders sent to [facility] in [place]. Please send myc msg to pt once lab orders sent. documented in this encounter Plan of Treatment Not on file documented as of this encounter Visit Diagnoses Not on filedocumented in this encounter Care Teams Enrollment Clerk Relationship Specialty Start Date [place] [address] [place], [place] 307687 PCP - General 08/19/22 10/14/22 [place] [address] [place] [address] PCP - General 10/15/22 Roderick Morelos MD [address] [place] [address] Cardiovascular Disease 02/03/22 Magno Wood MD 420 [facility] 396 [place] [address] Otolaryngology 02/21/22 Sophie Ocasio AuD [address] [place] [address] 796045 Burlapper Audiology 02/21/22 Henny Rosales APRN NODULIZER [address] [place] [address] Assigned Heart and Vascular Provider 08/09/[address] [place] [address] 159625 Registered Dietitian Dietitian, Registered 09/02/22 Christiane Rodríguez MD [address] [place] [address] 999285 Otolaryngology 11/12/22 Luis A Escobedo MD [address] [place] [address] 374225 Assigned Surgical Provider 11/01/22 11/28/22 Chely Fernandez PA-C [address] [place] [address] 464425 Assigned Surgical Provider 11/29/22 02/06/23 Jing Cadena APRN SUPERVISOR CENTRAL SUPPLY 420 [facility] 450 [place], [place] 848035 Clinical Nurse Specialist Anesthesiology 01/15/23 Radha Lopez, [facility] 909 [place], [place] 123035 Pharmacist Pharmacist 01/16/23 Luis A Escobedo MD 420 [facility] 195 [place], [place] 124245 Assigned Surgical Provider 02/07/23 04/15/23 Geri Loza PA-C 9[address] [place], [place] 761205 Assigned Surgical Provider 04/16/23 Raina Patterson, GINA NODULIZER [address] [place] 085125 Nurse Practitioner Cardiovascular Disease 05/11/23 documented as of this encounter
--- OUTSIDE RECORDS SUMMARY | 2024-01-08 10:28 | XMS_ITS | Encounter Summary ---
Author Organization [place] Address [address] [place] [address] Care Team Providers Care Painter Plate Name Role Phone Roderick Morelos MD Unavailable [phone] Magno Wood MD Unavailable [phone] Sophie Ocasio Unavailable +[phone] Henny Rosales MANAGER LABORATORY SHIFT SUPERINTENDENT CAUSTIC CRESYLATE Unavailable [phone] [facility] Primary Care Pr ovider Sharee Oliva RD Unavailable [phone] Kaykay Duarte RETAIL SALES REPRESENTATIVE Primary Care Provider [phone] Christiane Rodríguez MD Unavailable +[phone] Luis A Escobedo MD Unavailable +[phone] Chely Fernandez PA-C Unavailable [phone] Jing Cadena APRN DIRECTOR OF INTELLIGENCE Unavailable + [phone] Radha Lopez [facility] Unavailable +[phone] Luis A Escobedo MD Unavailable +[phone] Geri LozaC Unavailable [phone] Raina Patterson MANAGER LABORATORY SHIFT SUPERINTENDENT CAUSTIC CRESYLATE Unavailable +[phone] Encounter Details Date Type Department Care Team (Late st Contact Info) Description 08/19/2022 MyC Medical Advice [facility] [address] [place] [address] Tanya Larsen RN Social History [...] on filedocumented in this encounter Care Teams Painter Plate Relationship Specialty Start [place] [address] [place] [address] PCP - General 08/19/22 10/14/22 Kaykay Duarte RETAIL SALES REPRESENTATIVE [address] [place] [address] [facility] [place] [address] PCP - General 10/15/22 Roderick Morelos MD [address] [place], [place] 133275 Cardiovascular Disease 02/03/22 Magno Wood MD [address] [place] [address] 396 [place], [place] 971745 Otolaryngology 02/21/22 Sophie Ocasio, AuD [address] [place] [address] Account Executive Trainee Audiology 02/21/22 Henny Rosales, MANAGER LABORATORY SHIFT SUPERINTENDENT CAUSTIC CRESYLATE [address] [place] [address] Assigned Heart and Vascular Provider 08/09/[address] [place] [address] 902195 Registered Dietitian Dietitian, Registered 09/02/22 Christiane Rodríguez MD [address] [place] [address] 396 [place], [place] 745525 Otolaryngology 11/12/22 Luis A Escobedo MD [address] [place] [address] 195 [place], [place] 424115 Assigned Surgical Provider 11/01/22 11/28/22 Chely Fernandez PA-C [address] [place] [address] 799295 Assigned Surgical Provider 11/29/22 02/06/23 Jing Cadena, MANAGER LABORATORY DIRECTOR OF INTELLIGENCE 420 [facility] 450 [place], [place] 383965 Clinical Nurse Specialist Anesthesiology 01/15/23 Radha Lopez [facility] [address] [place] [address] 539875 Pharmacist Pharmacist 01/16/23 Luis A Escobedo MD [address] [place] [address] 195 [place] [address] Assigned Surgical Provider 02/07/23 04/15/23 Geri Loza PA-C 9 [place] [address] Assigned Surgical Provider 04/16/23 Raina Patterson APRN SHIFT SUPERINTENDENT CAUSTIC CRESYLATE [address] [place] [address] Nurse Practitioner Cardiovascular Disease 05/11/23 documented as of this encounter
--- OUTSIDE RECORDS SUMMARY | 2024-01-08 10:29 | XMS_ITS | Encounter Summary ---
Author Organization [place] Address [address] [address] Care Team Providers Care Equipment Operat0R Name Role Phone Kaykay Duarte APRN, LEAH Primary Care Provid er Encounter Details Date Type Department Care Team (Late st Contact Info) Description 12/18/2023 Notes/Orders Centralized Outreach [address] [place] [address]Q [place] [phone] Mikayla Sweeney MD [address] [place] [address] Type 2 diabetes mellitus without [...] ([facility]) documented in this encounter Care Teams Equipment Operat0R Relationship Specialty Start Date End Date Kaykay Duarte, GINA, MELTER ASSISTANT [address] [place] [address] PCP - General Nurse Practitioner 10/25/21 documented as of this encounter
--- OUTSIDE RECORDS SUMMARY | 2024-01-08 10:29 | XMS_ITS | Encounter Summary ---
Author Organization [place] Address [address] [place] [address] Care Team Providers Care Circuit Breaker Supervisor Name Role Phone Edda Agudelo PA-C Primary Care Provider + [phone] Magno Wood MD Unavailable [phone] [facility] Primary Care Provider Unavailable Parth Ellis MD Unavailable +[phone] Tati Ayala MD Unavailable +[phone] Khris Butt MD Unavailable +[phone] MorelosRoderick nunes MD Unavailable +[phone] Roderick Morelos MD Unavailable +[phone] Magno Wood MD Unavailable [phone] Sophie Ocasio Unavailable +[phone] Parth Ellis MD Unavailable +[phone] MorelosRoderick nunes MD Unavailable +[phone] Henny Rosales APRN VISUAL COORDINATOR Unavailable [phone] [facility] Primary Care Pr ovider Sharee Oliva RD Unavailable +[phone] Kaykay Duarte NP Primary Care Provider Christiane Rodríguez MD Unavailable +[phone] Luis A Escobedo MD Unavailable + [phone] Chely Fernandez PA-C Unavailable +[phone] Jing Cadena TEST PREPARATION TUTOR TECHNICAL COMMUNICATION TEACHER Unavailable + [phone] Radha Lopez [facility] Unavailable +[phone] Luis A Escobedo MD Unavailable + [phone] Geri Loza PA-C Unavailable +[phone] Raina Patterson TEST PREPARATION TUTOR VISUAL COORDINATOR Unavailable Encounter Details Date Type Department Care Team (Late st Contact Info) Description 03/31/2006 Office Visit-[facility] [place] [address] [facility] [address] [place] [address] Imani Ott, TEST PREPARATION TUTOR VISUAL COORDINATOR 6[address] [facility] [address] [place] [id number] Social History Tobacco Use Types Packs/Day Years [...] old Referring Physician: BOY WATSON Referring Clinic: [facility] CURRENT DIAGNOSES 1. - Hypercholesterolemia, [...] Mother - Age 34, cancer-breast; Half-Brother - [place]; Sister 1 - CAD; <FONT COLOR=#[id number]><FONT POINT=10>CARDIAC RISK FACTORS Tobacco Abuse: negative; Family [...] Out COVID-19 03/19/2020 03/19/2020 03/19/2020 6:22 PM SHREDDER TENDER PEAT COVID-19 03/19/2020 03/19/2020 04/09/2020 11:3 9 PM SHREDDER TENDER PEAT Rule Out COVID-19 06/19/2021 06/19/2021 06/19/2021 1:37 AM CDT Rule Out COVID-19 10/29/2021 10/29/2021 10/29/2021 1:07 AM CDT documented as of this encounter Care Teams Circuit Breaker Supervisor Relationship Specialty Start Date End Date Edda Agudelo PA-C [facility] [place] [address] [place] [address] PCP - General 05/04/12 10/11/19 Ernestina Martini [address] [place] [address] [facility] [address] [place] [address] PCP - General Family Practice 10/12/19 08/18/22 [facility] [address] [place], [place] 290627 PCP - General 08/19/22 10/14/22 [place] [address] [place] [address] PCP - General 10/15/22 Magno Wood MD [address] 008555 Otolaryngology 05/29/15 08/02/17 Parth Ellis MD [address] [place] [address] Assigned Heart and Vascular Provider 01/13/20 12/13/21 Tati Ayala MD [address] [place], [place] 277130 Assigned Endocrinology Provider 01/13/20 12/29/20 Khris Butt MD [address] [facility] [address] [place] [address] Assigned Heart and Vascular Provider 12/14/21 02/14/22 Roderick Morelos MD [address] [facility] [place] [address] Cardiovascular Disease 02/03/22 Roderick Morelos MD [address] [facility] [address] Assigned Heart and Vascular Provider 02/15/22 07/18/22 Magno Wood MD [address] [place] [address] Otolaryngology 02/21/22 Sophie Ocasio AuD [address] [place] [address] 954565 Bogger Operator Audiology 02/21/22 Parth Ellis MD [address] [place] 630775 Assigned Heart and Vascular Provider 07/19/22 07/25/22 Roderick Morelos MD [address] 035485 Assigned Heart and Vascular Provider 07/26/22 08/08/22 Henny Rosales APRN VISUAL COORDINATOR [address] [facility] [place] [phone] Assigned Heart and Vascular Provider 08/09/[address] [place] [address] 012075 Registered Dietitian Dietitian, Registered 09/02/22 Christiane Rodríguez MD [address] [place] [address] [address] [place], [place] 470425 Otolaryngology 11/12/22 Luis A Escobedo MD [address] [place] [address] 383245 Assigned Surgical Provider 11/01/22 11/28/22 Chely Fernandez PA-C [address] [place] [address] 699045 Assigned Surgical Provider 11/29/22 02/06/23 Jing Cadena, TEST PREPARATION TUTOR TECHNICAL COMMUNICATION TEACHER [address] [place] [address] [address] [place], [place] 520615 Clinical Nurse Specialist Anesthesiology 01/15/23 Radha Lopez, [facility] [address] [place] [address] [phone] Pharmacist Pharmacist 01/16/23 Luis A Escobedo MD [address] [place] [address] 601715 Assigned Surgical Provider 02/07/23 04/15/23 Geri Loza PA-C [address] [place] [address] 130815 Assigned Surgical Provider 04/16/23 Raina Patterson, GINA VISUAL COORDINATOR [address] [facility] [address] [place] [address] 714545 Nurse Practitioner Cardiovascular Disease 05/11/23 documented as of this encounter
--- OUTSIDE RECORDS SUMMARY | 2024-01-08 10:29 | XMS_ITS | Encounter Summary ---
Author Organization [employer] Address [address], [place] [address] Care Team Providers Care Telecommunication Systems Designer Name Role Phone Kaykay Duarte APRN, CNP Primary Care Provid er Reason for Visit * Reason Comments Vaginal Odor Encounter Details Date Type Department Care Team (Late st Contact Info) Description 04/14/2018 Nurse Triage [facility] [id number] [place] [address] Kaykay Duarte APRN, CNP [address] [place] [address] [phone] Vaginal Odor Social History Tobacco Use Types [...] States she will go to Urgent Care ITE SETTER * Kaykay Duarte APRN, CNP - 04/14/2018 3:22 PM CST Plz call pt. Ok to work her in on at 11:40 or 1pm. ITE SETTER * Geri Burnett, RN - 04/14/2018 3:09 PM CST Clinician Action: Appointment Work In Reason Vaginal discharge/odor Clinician Next Step: Route to [facility] to follow up and Patient IS expecting a call back from care team Specific Request(s): 1. Pt asking for a work in [facility] for vaginal discharge (white) and odor x [...] last menstrual period? no Protocols used: VAGINAL [id number] ITE SETTER * Karen Saunders - 04/14/2018 3:01 PM CST Pt calling back in. Transferred to triage per request. ITE SETTER * Jacquelyn Jaquez CNA - 04/14/2018 11:05 AM CST Symptoms Describe your symptoms (if pain, include location): Odor, discharge When did they start? 2 weeks Additional comments (related to the above concern): Pt has had past BV infection. Pt unavailable to speak 11:30-1:00pm today 04/14/18 If a prescription is needed, patient would like it filled at the pharmacy listed in [employer]. (Verify the pharmacy patient would like to use for this request is highlighted in blue in Pharmacy Selection under [employer]) Is it okay to leave a detailed message on your voicemail? Yes (Advise caller that the PN call back number will end with [phone] or unknown) For urgent symptoms: Please route and transfer to: Triage Pool (high priority) For routine symptoms: Please route to: Triage Pool (only transfer if caller insists) ITE SETTER documented in this encounter Plan of Treatment Not on file documented as of this encounter Visit Diagnoses Not on filedocumented in this encounter Additional Health Concerns Infection Onset Date Last Indicated Resolved Time R/O COVID19 02/08/2021 02/08/2021 02/09/2021 10:0 6 AM GRANITE SETTER R/O COVID19 02/17/2021 02/17/2021 02/17/2021 11:3 2 PM GRANITE SETTER documented as of this encounter Care Teams Telecommunication Systems Designer Relationship Specialty Start Date End Date Kaykay Duarte, CALENDER MACHINE OPERATOR, IT MANAGER [address] [place] [address] PCP - General Nurse Practitioner 10/25/21 documented as of this encounter
--- OUTSIDE RECORDS SUMMARY | 2024-01-08 10:29 | XMS_ITS | Encounter Summary ---
Author Organization [place] Address [address] [place] [address] Care Team Providers Care Retail Office Associate Name Role Phone Edda Agudelo PA-C Primary Care Provider + [phone] Magno Wood MD Unavailable [phone] [facility] Primary Care Provider Unavailable Parth Ellis MD Unavailable [phone] Tati Ayala MD Unavailable [phone] Khris Butt MD Unavailable [phone] MorelosRoderick nunes MD Unavailable [phone] Roderick Morelos MD Unavailable [phone] Magno Wood MD Unavailable Sophie Ocasio Unavailable +[phone] Parth Ellis MD Unavailable +[phone] MorelosRoderick nunes MD Unavailable [phone] Henny Rosales APRN EXPERIMENTAL PREFLIGHT MECHANIC Unavailable [phone] [facility] Primary Care Pr ovider Sharee Oliva RD Unavailable [phone] Kaykay Duarte NP Primary Care Provider Christiane Rodríguez MD Unavailable +[phone] Luis A Escobedo MD Unavailable + [phone] Chely Fernandez PA-C Unavailable +[phone] Cadena Jing Susie [facility] Unavailable + [phone] Radha Lopez [facility] Unavailable [phone] Luis A Escboedo MD Unavailable + [phone] Dago Geri Gaytan PA-C Unavailable +[phone] Raina Patterson GINA EXPERIMENTAL PREFLIGHT MECHANIC Unavailable [phone] Encounter Details Date Type Department Care Team (Late st Contact Info) Description 04/20/2009 Office Visit-[facility] Heart [address] [place] [phone] Lauri Canada APRN CNP NO INFO AVAILABLE [...] Referring Physician: LUIS A WORRELL Referring Clinic: [facility] CURRENT DIAGNOSES 1. - Hypercholesterolemia, 272.0 [...] Half-Brother - [place]; Sister 1 - CAD; CARDIAC RISK FACTORS [...] Out COVID-19 03/19/2020 03/19/2020 03/19/2020 6:22 PM UTILIZATION ENGINEER COVID-19 03/19/2020 03/19/2020 04/09/2020 11:3 9 PM UTILIZATION ENGINEER Rule Out COVID-19 06/19/2021 06/19/2021 06/19/2021 1:37 AM CDT Rule Out COVID-19 10/29/2021 10/29/2021 10/29/2021 1:07 AM CDT documented as of this encounter Care Teams Retail Office Associate Relationship Specialty Start Date End Date Edda Agudelo PA-C [facility] [address] [address] PCP - General 05/04/12 10/11/19 [facility] [address] [address] PCP - General Family Practice 10/12/19 08/18/22 [facility] [address] [place] [address] PCP - General 08/19/22 10/14/22 [place] [address] [place] [address] PCP - General 10/15/22 Magno Wood MD [address] [address] Otolaryngology 05/29/15 08/02/17 Parth Ellis MD [address] [place] [address] Assigned Heart and Vascular Provider 01/13/20 12/13/21 Tati Ayala MD [address] [place] [address] Assigned Endocrinology Provider 01/13/20 12/29/20 Khris Butt MD [address] [facility] [address] [place] [address] Assigned Heart and Vascular Provider 12/14/21 02/14/22 Roderick Morelos MD [address] [place] 230835 MD Cardiovascular Disease 02/03/22 Roderick Morelos MD [address] [place], [place] 327525 Assigned Heart and Vascular Provider 02/15/22 07/18/22 Magno Wood MD [address] [place] [address] 396 [place], [place] 718795 Otolaryngology 02/21/22 Sophie Ocasio AuD [address] [place], [place] 921485 Procurement Director Audiology 02/21/22 Parth Ellis MD [address] [place] 813305 Assigned Heart and Vascular Provider 07/19/22 07/25/22 Roderick Morelos MD [address] [place] [address] Assigned Heart and Vascular Provider 07/26/22 08/08/22 Henny Rosales, RING MAKING MACHINE OPERATOR EXPERIMENTAL PREFLIGHT MECHANIC [address] [place] [address] Assigned Heart and Vascular Provider 08/09/[address] [place] [address] 995755 Registered Dietitian Dietitian, Registered 09/02/22 Christiane Rodríguez MD [address] [place] [address] 396 [place] [address] Otolaryngology 11/12/22 Luis A Escobedo MD [address] [place] [address] Assigned Surgical Provider 11/01/22 11/28/22 Chely Fernandez PA-C [address] [place] [address] 134715 Assigned Surgical Provider 11/29/22 02/06/23 Jing Cadena, RING MAKING MACHINE OPERATOR [facility] [address] [place] [address] 450 [place], [place] 840755 Clinical Nurse Specialist Anesthesiology 01/15/23 Radha Lopez [facility] [address] [place] [address] 329745 Pharmacist Pharmacist 01/16/23 Luis A Escobedo MD [address] [place] [address] 195 [place], [place] 227715 Assigned Surgical Provider 02/07/23 04/15/23 Geri Loza PA-C 909 [place] [address] Assigned Surgical Provider 04/16/23 Raina Patterson APRN CNP [address] [facility] [address] [place] [address] Nurse Practitioner Cardiovascular Disease 05/11/23 documented as of this encounter
--- OUTSIDE RECORDS SUMMARY | 2024-01-08 10:29 | XMS_ITS | Encounter Summary ---
Author Organization [place] Address [address] [place] [address] Care Team Providers Care Carbon Paper Interleafer Name Role Phone Edda Agudelo PA-C Primary Care Provider + [phone] Magno Wood MD Unavailable [phone] [facility] Primary Care Provider Unavailable Parth Ellis MD Unavailable +[phone] Tati Ayala MD Unavailable +[phone] Khris Butt MD Unavailable +[phone] MorelosRoderick nunes MD Unavailable [phone] Roderick Morelos MD Unavailable [phone] Magno Wood MD Unavailable [phone] Sophie Ocasio Unavailable +[phone] Parth Ellis MD Unavailable +[phone] MorelosRoderick nunes MD Unavailable [phone] Henny Rosales APRN CASTING TECHNICIAN Unavailable [phone] [facility] Primary Care Pr ovider Sharee Oliva RD Unavailable [phone] Kaykay Duarte NP Primary Care Provider Christiane Rodríguez MD Unavailable +[phone] Luis A Escobedo MD Unavailable + [phone] Chely Fernandez PA-C Unavailable +[phone] Cadena Jing Susie [facility] Unavailable + [phone] Radha Lopez [facility] Unavailable +[phone] Luis A Escobedo MD Unavailable +[phone] Dago Geri Gaytan PA-C Unavailable +[phone] Yesenia Raina [facility] Unavailable [phone] Encounter Details Date Type Department Care Team (Late st Contact Info) Description 02/10/2008 Office Visit-[facility] 6[address] [facility] [address] [place] [address] Reji Li MD 6[address] [facility] [address] [place] [address] Social History Tobacco Use Types [...] Referring Physician: LUIS A WORRELL Referring Clinic: [facility] CURRENT DIAGNOSES 1. - Hypercholesterolemia, 272.0 [...] Out COVID-19 03/19/2020 03/19/2020 03/19/2020 6:22 PM DRAFTER CIVIL ENGINEERING COVID-19 03/19/2020 03/19/2020 04/09/2020 11:3 9 PM DRAFTER CIVIL ENGINEERING Rule Out COVID-19 06/19/2021 06/19/2021 06/19/2021 1:37 AM CDT Rule Out COVID-19 10/29/2021 10/29/2021 10/29/2021 1:07 AM CDT documented as of this encounter Care Teams Carbon Paper Interleafer Relationship Specialty Start Date End Date Edda Agudelo PA-C [facility] [address] [address] PCP - General 05/04/12 10/11/19 Sheila [place] 420 [facility] 396 [place] [address] PCP - General Family Practice 10/12/19 08/18/22 [facility] [address] [place] [address] [place], [place] 976587 PCP - General 08/19/22 10/14/22 Kaykay Duarte YOUTH DEVELOPMENT PROFESSIONAL [address] [place] [address] PCP - General 10/15/22 Magno Wood MD 420 [facility] 396 [place] [address] Otolaryngology 05/29/15 08/02/17 Parth Ellis MD [address] [place] [address] Assigned Heart and Vascular Provider 01/13/20 12/13/21 Tati Ayala MD [address] [place], [place] 668960 Assigned Endocrinology Provider 01/13/20 12/29/20 Khris Butt MD [address] [facility] [address] [place] 679435 Assigned Heart and Vascular Provider 12/14/21 02/14/22 Roderick Morelos MD [address] [place] 180595 Cardiovascular Disease 02/03/22 Roderick Morelos MD [address] [place] [address]15 Assigned Heart and Vascular Provider 02/15/22 07/18/22 Magno Wood MD 420 [facility] 396 [place] [address] Otolaryngology 02/21/22 Sophie Ocasio AuD [address]09 [place] [address] Administrative Support Technician Audiology 02/21/22 Parth Ellis MD [address] [place] 516785 Assigned Heart and Vascular Provider 07/19/22 07/25/22 Roderick Morelos MD [address] [place] 866895 Assigned Heart and Vascular Provider 07/26/22 08/08/22 Henny Rosales APRN CASTING TECHNICIAN [address] [place] [address] Assigned Heart and Vascular Provider 08/09/[address] [place], [place] 695295 Registered Dietitian Dietitian, Registered 09/02/22 Christiane Rodríguez MD 420 [facility] 396 [place] [address] Otolaryngology 11/12/22 Luis A Escobedo MD 420 [facility] 195 [place] [address] Assigned Surgical Provider 11/01/22 11/28/22 Chely Fernandez PA-C 909 [place] [address] Assigned Surgical Provider 11/29/22 02/06/23 Jing Cadena, COLLISION REPAIR TECHNICIAN ENTRY LEVEL ACCOUNT MANAGER 420 [facility] 450 [place] [address] Clinical Nurse Specialist Anesthesiology 01/15/23 Radha Lopez, [facility] [address] [place] [address] 159475 Pharmacist Pharmacist 01/16/23 Luis A Escobedo MD [address] [place] [address] 195 [place], [place] 287795 Assigned Surgical Provider 02/07/23 04/15/23 Geri Loza PA-C [address] [place] [address] 808285 Assigned Surgical Provider 04/16/23 Raina Patterson APRN CASTING TECHNICIAN [address] [place] 259205 Nurse Practitioner Cardiovascular Disease 05/11/23 documented as of this encounter
--- OUTSIDE RECORDS SUMMARY | 2024-01-08 10:29 | XMS_ITS | Encounter Summary ---
Author Organization [place] Address [address] [place] [address] Care Team Providers Care Industrial Waste Treatment Technician Name Role Phone Edda Agudelo PA-C Primary Care Provider + [phone] Magno Wood MD Unavailable [phone] [place] [facility] Primary Care Provider Unavailable Parth Ellis MD Unavailable [phone] Tati Ayala MD Unavailable [phone] Khris Butt MD Unavailable [phone] MorelosRoderick nunes MD Unavailable [phone] Roderick Morelos MD Unavailable [phone] Magno Wood MD Unavailable [phone] Sophie Ocasio Unavailable [phone] Parth Ellis MD Unavailable [phone] MorelosRoderick nunes MD Unavailable [phone] Henny Rosales APRN BACKUP ADMINISTRATOR Unavailable [phone] [facility] Primary Care Pr ovider Sharee Oliva RD Unavailable [phone] Kaykay Duarte NP Primary Care Provider Christiane Rodríguez MD Unavailable +[phone] Luis A Escobedo MD Unavailable +[phone] Chely Fernandez PA-C Unavailable [phone] Cadena Jing Susie [facility] Unavailable + [phone] Radha Lopez [facility] Unavailable [phone] Luis A Escobedo MD Unavailable +[phone] Geri Loza PA-C Unavailable [phone] Yesenia Raina [facility] Unavailable Encounter Details Date Type Department Care Team (Late st Contact Info) Description 12/16/2005 Office Visit-[facility] [address] [facility] [address] [place] [address] Reji Li MD [address] [facility] [address] [place] [address] Social History Tobacco Use Types [...] BOY WATSON Referring [facility] CURRENT DIAGNOSES 1. - Hypercholesterolemia, 272.0 [...] lives with and children; Place of - [place]; Hours Worked - 30 hours per week; [...] valve. She just had cholesterols done at [facility] yesterday. She will call us next [...] valve. She just had cholesterols done at [facility] yesterday. She will call us next week for the results to determine if weneed to increase her Vytorin. Total consult time: 25 minutes, greater than 50% counseling. Reji Li M.D./murtaza-avelina/[id number] cc:Luis A Vincent M.D. documented in this encounter Plan of Treatment Not on file documented as of this encounter Visit Diagnoses Not on filedocumented in this encounter Additional Health Concerns Infection Onset Date Last Indicated Resolved Time Rule Out COVID-19 03/19/2020 03/19/2020 03/19/2020 6:22 PM PURIFICATION OPERATOR COVID-19 03/19/2020 03/19/2020 04/09/2020 11:3 9 PM PURIFICATION OPERATOR Rule Out COVID-19 06/19/2021 06/19/2021 06/19/2021 1:37 AM CDT Rule Out COVID-19 10/29/2021 10/29/2021 10/29/2021 1:07 AM CDT documented as of this encounter Care Teams Industrial Waste Treatment Technician Relationship Specialty Start Date End Date Edda Agudelo PA-C [facility] [address] [place] [address] PCP - General 05/04/12 10/11/19 Ernestina Martini [address] [facility] [address] [place] [address] PCP - General Family Practice 10/12/19 08/18/22 [facility] [address] [place] [address] PCP - General 08/19/22 10/14/22 [place] [address] [place] [address] PCP - General 10/15/22 Magno Wood MD [address] [facility] [address] [place] [address] Otolaryngology 05/29/15 08/02/17 Parth Ellis MD [address] [address] Assigned Heart and Vascular Provider 01/13/20 12/13/21 Tati Ayala MD [address] [place], [place] 24[address] Assigned Endocrinology Provider 01/13/20 12/29/20 Khris Butt MD [address] [facility] [address] [place] [address] Assigned Heart and Vascular Provider 12/14/21 02/14/22 Roderick Morelos MD [address] [place] [address] Cardiovascular Disease 02/03/22 Roderick Morelos MD [address] [place] [address] Assigned Heart and Vascular Provider 02/15/22 07/18/22 Magno Wood MD [address] [place] [address] [address] [place], [place] 3640[address] Otolaryngology 02/21/22 Sophie Ocasio AuD [address] [place], [place] 8033[address] Sr. Merchandise Planner Audiology 02/21/22 Parth Ellis MD [address] [place] 450935 Assigned Heart and Vascular Provider 07/19/22 07/25/22 Roderick Morelos MD [address] [place] 747905 Assigned Heart and Vascular Provider 07/26/22 08/08/22 Henny Rosales, MOLD INSERT CHANGER BACKUP ADMINISTRATOR [address] [place] [phone] Assigned Heart and Vascular Provider 08/09/[address] [place], [place] 6399[address] Registered Dietitian Dietitian, Registered 09/02/22 Christiane Rodríguez MD [address] [facility] [address] [place], [place] 77[address] Otolaryngology 11/12/22 Luis A Escobedo MD [address] [place] [address] [address] [place], [place] [address]435 Assigned Surgical Provider 11/01/22 11/28/22 Chely Fernandez PA-C [address] [place] [address] [id number] Assigned Surgical Provider 11/29/22 02/06/23 Jing Cadena APRN GENERAL NEUROLOGIST [address] [place] [address] [address] [place], [place] 806635 Clinical Nurse Specialist Anesthesiology 01/15/23 Radha Lopez, [facility] [address] [place] [address] [phone] Pharmacist Pharmacist 01/16/23 Luis A Escobedo MD [address] [place] [address] 054855 Assigned Surgical Provider 02/07/23 04/15/23 Geri Loza PA-C [address] [place] [address] 290245 Assigned Surgical Provider 04/16/23 Raina Patterson APRN BACKUP ADMINISTRATOR [address] [facility] [address] [place] 522275 Nurse Practitioner Cardiovascular Disease 05/11/23 documented as of this encounter
--- OUTSIDE RECORDS SUMMARY | 2024-01-08 10:29 | XMS_ITS | Encounter Summary ---
Author Organization [place] Address [address] [place] [address] Care Team Providers Care Supervising Editor News Reel Name Role Phone Edda Agudelo PA-C Primary Care Provider + [phone] Magno Wood MD Unavailable [phone] [facility] Primary [facility] Provider Unavailable Parth Ellis MD Unavailable [phone] Tati Ayala MD Unavailable [phone] Khris Butt MD Unavailable [phone] MorelosRodreick nunes MD Unavailable [phone] Roderick Morelos MD Unavailable [phone] Magno Wood MD Unavailable [phone] Sophie Ocasio Unavailable [phone] Parth Ellis MD Unavailable [phone] MorelosRoderick nunes MD Unavailable [phone] Henny Rosales APRN RADAR AIR TRAFFIC CONTROLLER Unavailable [phone] [facility] Primary Care Pr ovider Sharee Oliva RD Unavailable [phone] Kaykay Duarte NP Primary Care Provider [phone] Christiane Rodríguez MD Unavailable [phone] Luis A Escobedo MD Unavailable + [phone] Chely Fernandez PA-C Unavailable [phone] CadenaJing APRN [facility] Unavailable + [phone] Radha Lopez [facility] Unavailable [phone] Luis A Escobedo MD Unavailable +[phone] Geri Loza PA-C Unavailable +[phone] Raina Patterson GINA RADAR AIR TRAFFIC CONTROLLER Unavailable +[phone] Encounter Details Date Type Department Care Team (Late st Contact Info) Description 12/06/2004 Office Visit-[facility] [place] [id number] [place] [address] Unknown, DoctorMD Social History Tobacco [...] old Referring Physician: BOY WATSON Referring Clinic: [facility] CURRENT DIAGNOSES [...] and labs HISTORY OF PRESENT ILLNESS </B><FONT FACE=Theatrical Agent New> Jimbo Owens is a pleasant, 34-year-old [...] cholesterol 194, ratio 5.4, ALT 14. Her [place] 10-year risk score is 1%. 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 Jimbo, [...] mcg/inh and Zocor 20 mg IMPRESSIONS/PLAN </B><FONT FACE=Theatrical Agent New>1) Family history of coronary artery disease [...] Lipid profile/ALT 2 months Lauri [place] N.P. Electronically signed by [facility], Emr Data Conversion at 08/05/2013 5:43 AM CDT documented in this encounter Plan of Treatment Not on file documented as of this encounter Visit Diagnoses Not on filedocumented in this encounter Additional Health Concerns Infection Onset Date Last Indicated Resolved Time Rule Out COVID-19 03/19/2020 03/19/2020 03/19/2020 6:22 PM CROWN CERAMIST COVID-19 03/19/2020 03/19/2020 04/09/2020 11:3 9 PM CROWN CERAMIST Rule Out COVID-19 06/19/2021 06/19/2021 06/19/2021 1:37 AM CDT Rule Out COVID-19 10/29/2021 10/29/2021 10/29/2021 1:07 AM CDT documented as of this encounter Care Teams Supervising Editor News Reel Relationship Specialty Start Date End Date Edda Agudelo PA-C [facility] [address] [address] PCP - General 05/04/12 10/11/19 Ernestina Martini [address] [address] PCP - General Family Practice 10/12/19 08/18/22 [facility] Jovanna [place] [address] [place] [address] PCP - General 08/19/22 10/14/22 Kaykay Duarte, MINILAB OPERATOR [address] [place], [place] 014207 PCP - General 10/15/22 Magno Wood MD [address] 628715 Otolaryngology 05/29/15 08/02/17 Parth Ellis MD [address] [place] [address] Assigned Heart and Vascular Provider 01/13/20 12/13/21 Tati Ayala MD [address] [place], [place] [address]8980 Assigned Endocrinology Provider 01/13/20 12/29/20 Khris Butt MD [address] [place] 931635 Assigned Heart and Vascular Provider 12/14/21 02/14/22 Roderick Morelos MD [address] [place] [address] MD Cardiovascular Disease 02/03/22 Roderick Morelos MD [address] [place] [address] Assigned Heart and Vascular Provider 02/15/22 07/18/22 Magno Wood MD [address] [place] [address] 396 [place], [place] [address] Otolaryngology 02/21/22 Sophie Ocasio AuD [address] [place], [place] 906035 Pairer Substandard Audiology 02/21/22 Parth Ellis MD [address] 792145 Assigned Heart and Vascular Provider 07/19/22 07/25/22 Roderick Morelos MD [address] [place] [address] Assigned Heart and Vascular Provider 07/26/22 08/08/22 Henny Rosales APRN RADAR AIR TRAFFIC CONTROLLER [address] [place] [phone] Assigned Heart and Vascular Provider 08/09/[address] [place] [address] [phone] Registered Dietitian Dietitian, Registered 09/02/22 Christiane Rodríguez MD [address] [place] [address] 396 [place], [place] 143035 Otolaryngology 11/12/22 Luis A Escobedo MD [address] [place] [address] [id number] Assigned Surgical Provider 11/01/22 11/28/22 Chely Fernandez PA-C [address] [place] [address] 137335 Assigned Surgical Provider 11/29/22 02/06/23 Jing Cadena APRN SPRAYER INSECTICIDE [address] [place] [address] [address] [place], [place] 365705 Clinical Nurse Specialist Anesthesiology 01/15/23 Radha Lopez, [facility] [address] [place] [address] Pharmacist Pharmacist 01/16/23 Luis A Escobedo MD [address] [place] [address] [address] [place], [place] 234055 Assigned Surgical Provider 02/07/23 04/15/23 Geri Loza PA-C [address] [place] [address] Assigned Surgical Provider 04/16/23 Raina Patterson APRN [facility] [place] [facility] [address] [place] [address] Nurse Practitioner Cardiovascular Disease 05/11/23 documented as of this encounter
--- OUTSIDE RECORDS SUMMARY | 2024-01-08 10:29 | XMS_ITS | Clinical Summary ---
Author Organization [facility] Address [address] [place] [address] Care Team Providers Care Bench Chemist Name Role Phone Kaykay Duarte APRN, LEAH Primary Care Provid er Source Comments You are receiving this document as you are listed as the primary care provider,follow-up provider, or the patient has been referred to you for consultation.This is in compliance with the Medicare andOhio[facility] Doctors Hospitalca[facility] EHR Incentive Program,which states Providers who transition their patient to another setting of careor provider of care or refers their patient to another provider of care shouldprovide summary care record for each transition of care or referral. [employer] Allergies No known active allergies Medications Medication [...] use. 1 Each 3 02/20/2022 Active cyanocobalamin (IGRNEEFT89) 1000 MCG/ML injection Inject 1,000 mcg subcutaneously [...] (01/04/2021): Added automatically from request for surgery [id number] S/P laparoscopic sleeve gastrectomy 08/09/2020 Overview (08/09/2020): [...] 35 RDI 36 Lowest O2 Sat: 87% [facility] Cervical high risk HPV (human papillomavirus) te st positive 08/05/2017 Overview (06/01/2023): [facility] Review: History: 07/2017: NILM HPV+ (18) 08/2017: [...] Notes/Orders Centralized Outreach [address] [place] [address] [address] Mikayla Sweeney MD Type 2 diabetes mellitus without complication, without long-term current use of insulin (HRC) from Last 3 Months Immunizations Name Administration Dates Next Due Influenza IIV4 (Quadrivalent ) 0.5mL (94809) 02/08/2021,03/31/2019,04/14/2017 PCV20 (Dsyenvg50) 05/20/2023 PPSV23 (Pneumovax) 04/14/2017 Pfizer Monovalent 12+ [...] (265 lb 9.6 oz) 05/20/2023 2:19 PM MEDICAL RECRUITER Height 167.6 cm (5' 6) 09/11/2022 4:11 [...] this topic Medical Devices Implanted Type Area Ram Car Operator Device Identifier Shelf Expiration Date Model / Serial / Lot Kit Leidy Burris Sys - [id number] Implanted:Qty: 1 on 02/19/2021 by Zoila Shaikh MBBS at [facility] DEVICE N/A: PELVIS [employer] 12/05/2021 [id number] / [id number] / [id number] Description:Polypropylene me sh- per [employer] Ent Gyrus Virk Torp-05/20/2005 Implanted: 006 (Quantity not on file) ENT EAR [id number] / / [id number] Description:Devices that are made from non-metallic materials (i.e. Implants and Ventilation Tubes made from DAVIS, Plasti-pore, Silicone, Fluoroplastic) are inherently non-conducting and non-magnetic and pose no known hazards in all MR environments and therefore are considered MR Safe. - Per [facility] Procedures Procedure Name Priority Date/Time Associated Diagnosis Comments PAP TEST Routine 04/29/2023 9:58 AM MEDICAL RECRUITER Screening for cervical cancer MM MAMMOGRAM SCREENING BILAT W 3D SCOT W CAD Routine 04/02/2023 8:58 AM MEDICAL RECRUITER HGB A1C Routine 12/23/2022 11:40 AM CDT [...] Results * PAP Test (04/29/2023 9:58 AM MEDICAL RECRUITER) Case Report Pap ? Case: [id number] ? Authorizing Provider: ??Elizabeth Herndon APRN, ?Collected: ? 04/29/2023 0958 ? CNM ? Ordering Location: ? [facility] ? Received: ?04/29/2023 1008 ? Services-CUSTOMER SERVICE COORDINATOR ? First Screen: ?Nault, Diana E, CT (ASCP) ? Specimen: ?Pap Test, Routine, Cervix/Endocervix ? 05/21/2023 1:19 PM MEDICAL RECRUITER [facility] Pap Specimen Adequacy Satisfactory for evaluation, endocervical/kerr sformation zone component present. 05/21/2023 1:19 PM MEDICAL RECRUITER [facility] Pap Interpretation (NILM) Negative for intraepithelial lesion or malignancy. 05/21/2023 1:19 PM MEDICAL RECRUITER [facility] Pap Disclaimer The Pap test is a screening test to aid in the detection of cervical and vaginal cancers and their precursor lesions. It is not a diagnostic procedure and should not be used as the sole means of detecting malignancy. Both false-positive and false-negative results may occur. 05/21/2023 1:19 PM MEDICAL RECRUITER [facility] Gross Description The specimen is received in SurePath fixative and properly labeled. 1 Pap-stained SurePath slide is prepared. 05/21/2023 1:19 PM MEDICAL RECRUITER [facility] Embedded Images 1:19 PM MEDICAL RECRUITER [facility] Other Specimen Type ENTIRE ENDOCERVIX / Unknown 04/29/2023 9:58 AM MEDICAL RECRUITER 04/29/2023 10:08 AM MEDICAL RECRUITER Comment:LMP: No LMP recorded . (Menstrual status: IUD). Elizabeth Herndon APRN, CNM LAB PATHOLOGY Performing Organization Address City/[facility] de Phone Number [facility] [address] * MM Mammogram Screening Bilat W 3D Scot W CAD (04/02/2023 8:58 AM MEDICAL RECRUITER) Anatomical Region Laterality Modality Breast Bilateral Mammography Impressions 04/02/2023 10:15 AM MEDICAL RECRUITER : ACR BI-RADS Category 1: Negative RECOMMENDATION: Follow Up Imaging in 12 months - Bilateral The provided family history indicates that the patient might be at a high lifetime risk of breast cancer. Consider a formal risk assessment if not previously performed. The results and recommendations of this examination will be communicated to the patient. Narrative 04/02/2023 10:15 AM MEDICAL RECRUITER MM MAMMOGRAM SCREENING BILAT W 3D SCOT [...] radiographic evidence of malignancy. ?? Kaykay Duarte COMPRESS ENGINEER, GEOLOGICAL DRAFTER RAD CARLOS * (ABNORMAL) HgbA1c - Collect in Lab (12/23/2022 11:40 AM CDT) Hemoglobin A1C (Rapid) 6.4(H) <=5.6 % 12/23/2022 1:46 PM CDT [facility] Estimated Average Glucose (Calc) 137 < 117 mg/dL 12/23/2022 1:46 PM T [facility] Comment:Estimated average gl ucose (eAG) converts A1c into glucose units (mg/dL) and estimates average glucose over the past approximately 3 months. The eAG reference interval (<117 mg/dL) corresponds to an A1c of <5.7%. Blood Venipuncture / Unknown 12/23/2022 11:40 AM CDT 12/23/2022 11:43 AM CDT Narrative [facility] - 12/23/2022 1:46 PM CDT For [...] for further direction. Mikayla Sweeney MD LAB_1 [facility] [address] [place] [address], [facility] [phone] * Endoscopy, colon, diagnostic (11/20/2022 7:03 AM [...] saturations were ? monitored continuously. The ? [id number] was introduced through ? the anus and [...] the initial medication ? administration until the engineer booster and exhauster assists with ? initial maneuvers (biopsy / [...] Procedure Code(s): ? --- Professional --- ? 74055, Colonoscopy, flexible; ? diagnostic, including collection of ? specimen(s) by brushing or washing, ? when performed (separate procedure) ? 74367, Moderate sedation; each ? additional 15 minutes [...] (additional time may ? be reported with 26701, as ? appropriate) Diagnosis Code(s): ? --- Professional --- ? Z12.11, Encounter for screening for ? malignant neoplasm of colon ? K64.9, Unspecified hemorrhoids CPT copyright 2020 [employer]. All rights reserved. The codes documented in this report are preliminary and upon customer consulting manager review may be revised to meet current [...] and oxygen saturations were monitored continuously. The [id number] was introduced through the anus and advanced [...] from the initial medication administration until the engineer booster and exhauster assists with initial maneuvers (biopsy / polypectomy / etc.), or if no maneuvers are performed, until the endoscopist leaves the room. Impression: - The examined portion of the ileum was normal. - The entire examined colon is normal. - Hemorrhoids. - No specimens collected. Recommendation: - Repeat colonoscopy in 10 years for screening purposes. Procedure Code(s): --- Professional --- 31893, Colonoscopy, flexible; diagnostic, including collection of specimen(s) by brushing or washing, when performed (separate procedure) 99492, Moderate sedation; each additional 15 minutes intraservice time G0500, Moderate sedation services provided by the same physician or other qualified health rental boats caretaker performing a gastrointestinal endoscopic service that sedation supports, requiring the presence of an independent trained observer to assist in the monitoring of the patient's level of consciousness and physiological status; initial 15 minutes of intra-service time; patient age 5 years or older (additional time may be reported with 58286, as appropriate) Diagnosis Code(s): --- Professional --- Z12.11, Encounter for screening for malignant neoplasm of colon K64.9, Unspecified hemorrhoids CPT copyright 2020 [employer]. All rights reserved. The codes documented in this report are preliminary and upon customer consulting manager review may be revised to meet current compliance requirements. Nahomy Latham, 11/20/2022 8:02:54 AM This document has been electronically signed. Number of Addenda: 0 Note Initiated On: 11/20/2022 7:03 AM Endoscopy Report Elizabeth Herndon COMPRESS ENGINEER, CNM ET GI PROCEDUR E ORDERABLES * (ABNORMAL) Lipid Panel and Direct LDL(If Needed) (10/23/2022 11:20 AM CDT) Cholesterol 322(H) 0 - 199 mg/dL 10/23/2022 1:00 PM T [facility] Triglyceride 205(H) <=149 mg/dL 10/23/2022 1:00 PM [facility] HDL Cholesterol 46 >=40 mg/dL 3 1:00 PM [facility] LDL, Calculated 235(H) <130 mg/dL 3 1:00 PM [facility] Non HDL Chol, Calculated 276(H) <=159 mg/dL 10/23/2022 1:00 PM [facility] Cholesterol/HDL Ratio 7.0 10/23/2022 1:00 PM [facility] Hours Fasting 0 10/23/2022 1:00 PM [facility] Blood Venipuncture / Unknown 10/23/2022 11:20 AM CDT 10/23/2022 11:39 AM CDT Mikayla Sweeney MD LAB_1 [facility] [address] [place] [address] [phone] * (ABNORMAL) Comp Metabolic Panel (10/23/2022 11:20 AM CDT) Sodium 139 136 - 145 mmol/L 10/23/2022 1:00 PM T [facility] Potassium 4.3 3.5 - 5.1 mmol/L 10/23/2022 1:00 PM [facility] Chloride 105 98 - 109 mmol/L 10/23/2022 1:00 PM [facility] CO2 24 20 - 29 mmol/L 10/23/2022 1:00 PM [facility] Anion Gap 10 7 - 16 mmol/L 10/23/2022 1:00 PM [facility] Calcium 9.4 8.4 - 10.4 mg/dL 10/23/2022 1:00 PM [facility] BUN 17 7 - 26 mg/dL 10/23/2022 1:00 PM [facility] Creatinine 0.90 0.55 - 1.02 mg/dL 10/23/2022 1:00 PM [facility] Alkaline Phosphatase 73 40 - 150 U/L 10/23/2022 1:00 PM [facility] AST (SGOT) 16 10 - 40 U/L 10/23/2022 1:00 PM [facility] ALT (SGPT) 21 <=55 U/L 10/23/2022 1:00 PM [facility] Bilirubin, Total 0.4 0.2 - 1.2 mg/dL 10/23/2022 1:00 PM [facility] Protein, Total 7.0 6.4 - 8.3 g/dL 10/23/2022 1:00 PM [facility] Albumin 3.8 3.5 - 5.0 g/dL 10/23/2022 1:00 PM [facility] Glucose 123(H) 70 - 100 mg/dL 10/23/2022 1:00 PM [facility] Comment:The given reference range is for the fasting state. Non-fasting reference range for glucose is 70 - 180 mg/dL. Hours Fasting 0 10/23/2022 1:00 PM [facility] GFR, Estimated >60 >60 mL/min/1.7 3m2 10/23/2022 1:00 PM [facility] Blood Venipuncture / Unknown 10/23/2022 11:20 AM CDT 10/23/2022 11:39 AM [facility] Geri Loza PA-C LAB_1 [facility] [address] [place] [address], [facility] [phone] * Albumin/Creatinine Ratio,Random Urine (08/20/2022 8:36 AM CDT) Pathologist [facility] Albumin/Creati nine Ratio, Urine, Random 10 <30 mg/g 08/20/2022 10:58 AM CDT [facility] Albumin, Urine, Random 18.1 mg/L 08/20/2022 10:58 AM CDT [facility] Creatinine, Urine, Random 182 >20 mg/dL mg/dL 08/20/2022 10:58 AM CDT [facility] Urine Non-blood Collection / Unknown 08/20/2022 8:36 AM CDT 08/20/2022 9:30 AM CDT Mikayla Sweeney MD LAB_1 [facility] [address] [place] [address] [phone] * Hepatitis C Antibody, with Reflex (09/13/2021 11:05 AM CDT) [facility] Hepatitis C Antibody Negative (Non Reactive) Negative (Non Reactive) 09/13/2021 4:31 PM CDT [facility] Comment:Antibodies to HCV no t detected. Does not exclude the possiblity of exposure to HCV. Blood Venipuncture / Unknown 09/13/2021 11:05 AM CDT 09/13/2021 11:16 AM CDT Kaykay Duarte APRN, LEAH LAB[facility]1 [facility] [address] [place], [place] [address] [place] [address] * HIV 1/2 Ag/Ab 4th Generation (06/27/2020 8:04 AM CDT) [facility] HIV 1/2 Antigen/Antib sherry (4th generation) Negative (Non Reactive) Negative (Non Reactive) 06/27/2020 12:45 PM CDT [facility] Comment:HIV-1 p24 Antigen an d HIV-1/HIV-2 Antibody not detected Blood Venipuncture / Unknown 06/27/2020 8:04 AM CDT 06/27/2020 8:09 AM CDT Kaykay Duarte APRN, CNP LAB_1 [facility] [address] [place] [address], [facility] from Last 3 Months or Most Recently Relevant to Health Maintenance Advance Directives * Full Code (Latest Code Status on File) Date Activated Date Inactivated Comments 08/09/2020 4:04 PM 08/10/2020 1:55 PM Care Teams Bench Chemist Relationship Specialty Start Date End Date Kaykay Duarte APRN, CNP [address] [place] [address] PCP - General Nurse Practitioner 10/25/21
--- OUTSIDE RECORDS SUMMARY | 2024-01-08 10:29 | XMS_ITS | Encounter Summary ---
Author Organization [place] Address [address] [place] [address] Care Team Providers Care Tool Chaser Name Role Phone Edda Agudelo PA-C Primary Care Provider + [phone] Magno Wood MD Unavailable [phone] [facility] Primary Care Provider Unavailable Parth Ellis MD Unavailable [phone] Tati Ayala MD Unavailable [phone] Khris Butt MD Unavailable [phone] MorelosRoderick nunes MD Unavailable [phone] Roderick Morelos MD Unavailable [phone] Magno Wood MD Unavailable [phone] Sophie Ocasio Unavailable [phone] Parth Ellis MD Unavailable [phone] MorelosRoderick nunes MD Unavailable [phone] Henny Rosales APRN BARREL CHARRER Unavailable [phone] [facility] Primary Care Pr ovider Sharee Oliva RD Unavailable [phone] Kaykay Duarte NP Primary Care Provider Christiane Rodríguez MD Unavailable +[phone] Luis A Escobedo MD Unavailable + [phone] Chely Fernandez PA-C Unavailable [phone] CadenaJing APRN [facility] Unavailable + [phone] Radha Lopez [facility] Unavailable [phone] Luis A Escobedo MD Unavailable +[phone] Geri Loza PA-C Unavailable [phone] Yesenia Raina [facility] Unavailable +[phone] Encounter Details Date Type Department Care Team (Late st Contact Info) Description 01/25/2004 Office Visit-[facility] Heart [id number] [place] [address] Unknown, DoctorMD Social History Tobacco [...] old Referring Physician: BOY WATSON Referring Clinic: [facility] CURRENT DIAGNOSES 1. 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; Residence - lives with and children; Place of - [place]; Hours Worked - 30 hours per week; [...] Out COVID-19 03/19/2020 03/19/2020 03/19/2020 6:22 PM ORTHOPAEDIC TECHNOLOGIST COVID-19 03/19/2020 03/19/2020 04/09/2020 11:3 9 PM ORTHOPAEDIC TECHNOLOGIST Rule Out COVID-19 06/19/2021 06/19/2021 06/19/2021 1:37 AM CDT Rule Out COVID-19 10/29/2021 10/29/2021 10/29/2021 1:07 AM CDT documented as of this encounter Care Teams Tool Chaser Relationship Specialty Start Date End Date Edda Agudelo PA-C [facility] [address] [place] 6[address]88 PCP - General 05/04/12 10/11/19 Ernestina Martini [address] [facility] [address] [place] [address] PCP - General Family Practice 10/12/19 08/18/22 [place] [address] [place] [address] PCP - General 08/19/22 10/14/22 [place] [address] [place] [address] PCP - General 10/15/22 Magno Wood MD [address] [facility] [address] [place], [place] 380665 Otolaryngology 05/29/15 08/02/17 Parth Ellis MD [address] [place] 930345 Assigned Heart and Vascular Provider 01/13/20 12/13/21 Tati Ayala MD [address] [place], [place] 0[address]30 Assigned Endocrinology Provider 01/13/20 12/29/20 Khris Butt MD [address] [place] [address] Assigned Heart and Vascular Provider 12/14/21 02/14/22 Roderick Morelos MD [address] [place] 436925 Cardiovascular Disease 02/03/22 Roderick Morelos MD [address] [place] [address] Assigned Heart and Vascular Provider 02/15/22 07/18/22 Magno Wood MD [address] 986325 Otolaryngology 02/21/22 Sophie Ocasio AuD [address] [place] [address] 581555 Petroleum Supply Specialist Audiology 02/21/22 Parth Ellis MD [address] [place], [place] 806955 Assigned Heart and Vascular Provider 07/19/22 07/25/22 Roderick Morelos MD [address] [place], [place] 393145 Assigned Heart and Vascular Provider 07/26/22 08/08/22 Henny Rosales APRN BARREL CHARRER [address] [place] [address] Assigned Heart and Vascular Provider 08/09/[address] [place] [address] 276025 Registered Dietitian Dietitian, Registered 09/02/22 Christiane Rodríguez MD [address] [place] [address] 127215 Otolaryngology 11/12/22 Luis A Escobedo MD [address] [place] [address] 701285 Assigned Surgical Provider 11/01/22 11/28/22 Chely Fernandez PA-C [address] [place], [place] 278875 Assigned Surgical Provider 11/29/22 02/06/23 Jing Cadena APRN SOUND PRINTER [address] [facility] [address] [place], [place] 869335 Clinical Nurse Specialist Anesthesiology 01/15/23 Radha Lopez, [facility] [address] [place] [address] 369705 Pharmacist Pharmacist 01/16/23 Luis A Escobedo MD [address] [facility] [address] [place], [place] 343225 Assigned Surgical Provider 02/07/23 04/15/23 Geri Loza PA-C [address] [place] [address] 821805 Assigned Surgical Provider 04/16/23 Raina Patterson APRN BARREL CHARRER [address] [email or web address] [address] [place], [place] [address] Nurse Practitioner Cardiovascular Disease 05/11/23 documented as of this encounter
--- OUTSIDE RECORDS SUMMARY | 2024-01-08 10:29 | XMS_ITS | Encounter Summary ---
Author Organization Home Address [address] [place] [address] Care Team Providers Care Movie Theater Manager Name Role Phone Edda Agudelo PA-C Primary Care Provider + [phone] Magno Wood MD Unavailable [phone] [facility] Primary Care Provider Unavailable Parth Ellis MD Unavailable [phone] Tati Ayala MD Unavailable [phone] Khris Butt MD Unavailable [phone] MorelosRoderick nunes MD Unavailable [phone] Roderick Morelos MD Unavailable [phone] Magno Wood MD Unavailable [phone] Sophie Ocasio Unavailable [phone] Parth Ellis MD Unavailable [phone] MorelosRoderick nunes MD Unavailable [phone] Henny Rosales APRN PEDIATRIC PHYSICAL THERAPY ASSISTANT Unavailable [phone] [facility] Primary Care Pr ovider Sahree Oliva RD Unavailable [phone] Kaykay Duarte NP Primary Care Provider Christiane Rodríguez MD Unavailable [phone] Luis A Escobedo MD Unavailable + [phone] Chely Fernandez PA-C Unavailable [phone] Jing Cadena APRN [facility] Unavailable + [phone] Radha Lopez [facility] Unavailable [phone] Luis A Escobedo MD Unavailable + [phone] Geri Loza PA-C Unavailable +[phone] Raina Patterson GINA PEDIATRIC PHYSICAL THERAPY ASSISTANT Unavailable [phone] Encounter Details Date Type Department Care Team (Late st Contact Info) Description 10/20/2001 Office Visit-[facility] [id number] [place] [address] Unknown, DoctorMD Social History Tobacco [...] Out COVID-19 03/19/2020 03/19/2020 03/19/2020 6:22 PM ASPHALT HEATER OPERATOR COVID-19 03/19/2020 03/19/2020 04/09/2020 11:3 9 PM ASPHALT HEATER OPERATOR Rule Out COVID-19 06/19/2021 06/19/2021 06/19/2021 1:37 AM CDT Rule Out COVID-19 10/29/2021 10/29/2021 10/29/2021 1:07 AM CDT documented as of this encounter Care Teams Movie Theater Manager Relationship Specialty Start Date End Date Edda Augdelo PA-C [facility] [address] [address] PCP - General 05/04/12 10/11/19 [facility] [place] [address] [address] PCP - General Family Practice 10/12/19 08/18/22 [facility] [address] [place], [place] 310387 PCP - General 08/19/22 10/14/22 [place] [address] [place], [place] 364757 PCP - General 10/15/22 Magno Wood MD [address] 638925 MD Otolaryngology 05/29/15 08/02/17 Parth Ellis MD [address] [place] 268385 Assigned Heart and Vascular Provider 01/13/20 12/13/21 Tati Ayala MD [address] [place], [place] 027[address] Assigned Endocrinology Provider 01/13/20 12/29/20 Khris Butt MD [address] [facility] [address] [place] [address] Assigned Heart and Vascular Provider 12/14/21 02/14/22 Roderick Morelos MD [address] [place] [address] Cardiovascular Disease 02/03/22 Roderick Morelos MD [address] [place] [address] Assigned Heart and Vascular Provider 02/15/22 07/18/22 Magno Wood MD [address] [place] [address] Otolaryngology 02/21/22 Sophie Ocasio AuD [address] [place] [address] 776395 Human Services Case Manager Audiology 02/21/22 Parth Ellis MD [address] [place] 243955 Assigned Heart and Vascular Provider 07/19/22 07/25/22 Roderick Morelos MD [address] [place] [address] Assigned Heart and Vascular Provider 07/26/22 08/08/22 Henny Rosales APRN PEDIATRIC PHYSICAL THERAPY ASSISTANT [address] [place] [address] Assigned Heart and Vascular Provider 08/09/[address] [place], [place] 325215 Registered Dietitian Dietitian, Registered 09/02/22 Christiane Rodríguez MD [address] [facility] [address] [place], [place] 6[address] Otolaryngology 11/12/22 Luis A Escobedo MD 420 [facility] [address] [place], [place] 225955 Assigned Surgical Provider 11/01/22 11/28/22 Chely Fernandez PA-C [address] [place], [place] 505905 Assigned Surgical Provider 11/29/22 02/06/23 Jing Cadena APRN CONTACT REPRESENTATIVE [address] [facility] [address] [place], [place] 252725 Clinical Nurse Specialist Anesthesiology 01/15/23 Radha Lopez, [facility] [address] [place] [address] Pharmacist Pharmacist 01/16/23 Luis A Escobedo MD [address] [place] [address] Assigned Surgical Provider 02/07/23 04/15/23 Geri Loza PA-C [address] [place] [address] Assigned Surgical Provider 04/16/23 Raina Patterson APRN PEDIATRIC PHYSICAL THERAPY ASSISTANT [address] [place] [address] Nurse Practitioner Cardiovascular Disease 05/11/23 documented as of this encounter
--- OUTSIDE RECORDS SUMMARY | 2024-01-08 10:29 | XMS_ITS | Encounter Summary ---
Author Organization [facility] Address [address] [place] [address] Care Team Providers Care Gauntlet Pairer Name Role Phone Edda Agudelo PA-C Primary Care Provider + [phone] Magno Wood MD Unavailable [phone] [place] [facility] Primary Care Provider Unavailable Parth Ellis MD Unavailable [phone] Tati Ayala MD Unavailable [phone] Khris Butt MD Unavailable [phone] MorelosRoderick nunes MD Unavailable [phone] Roderick Morelos MD Unavailable [phone] Magno Wood MD Unavailable [phone] Sophie Ocasio Unavailable [phone] Parth Ellis MD Unavailable [phone] MorelosRoderick nunes MD Unavailable [phone] Henny Rosales APRN SETTER HELPER Unavailable [phone] [facility] Primary Care Pr ovider Sharee Oliva RD Unavailable [phone] Kaykay Duarte NP Primary Care Provider [phone] Christiane Rodríguez MD Unavailable [phone] Luis A Escobedo MD Unavailable + [phone] Chely Fernandez PA-C Unavailable [phone] Cadena Jing Susie FUENTES AIRPLANE COVER MAKER Unavailable + [phone] Radha Lopez [facility] Unavailable [phone] Luis A Escobedo MD Unavailable + [phone] Dago Geri Gaytan PA-C Unavailable +[phone] Raina Patterson GINA SETTER HELPER Unavailable [phone] Encounter Details Date Type Department Care Team (Late st Contact Info) Description 06/13/2009 Office [facility] Heart [address] [place] [phone] Lauri Canada APRN CNP NO INFO AVAILABLE [...] Referring Physician: LUIS A WORRELL Referring Clinic: [facility] CURRENT DIAGNOSES 1. 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 On Crestor 20 mg a day (which [...] Mother - Age 34, cancer-breast; Half-Brother - MS; Sister 1 - CAD; SOCIAL HISTORY Alcohol [...] Reji Li MD 3 months-MUST BE ANDRE-NOT MANAGER GAMES 2. Lipid profile/ALT 3 months Lauri Canada, N.P. documented in this encounter Plan of Treatment Not on file documented as of this encounter Visit Diagnoses Not on filedocumented in this encounter Additional Health Concerns Infection Onset Date Last Indicated Resolved Time Rule Out COVID-19 03/19/2020 03/19/2020 03/19/2020 6:22 PM ANALYZER SALES COVID-19 03/19/2020 03/19/2020 04/09/2020 11:3 9 PM ANALYZER SALES Rule Out COVID-19 06/19/2021 06/19/2021 06/19/2021 1:37 AM CDT Rule Out COVID-19 10/29/2021 10/29/2021 10/29/2021 1:07 AM CDT documented as of this encounter Care Teams Gauntlet Pairer Relationship Specialty Start Date End Date Edda Agudelo PA-C [facility] [address] [place] [address] PCP - General 05/04/12 10/11/19 Ernestina Martini [facility] 396 [place] [address] PCP - General Family Practice 10/12/19 08/18/22 [facility] [address] [place] [address] PCP - General 08/19/22 10/14/22 Kaykay Duarte, MANAGER GAMES [address] [place] [address] PCP - General 10/15/22 Magno Wood MD 420 [place] [address] [facility] 396 [place] [address] Otolaryngology 05/29/15 08/02/17 Parth Ellis MD [address] [place] [address] Assigned Heart and Vascular Provider 01/13/20 12/13/21 Tati Ayala MD [address] [place] [address] Assigned Endocrinology Provider 01/13/20 12/29/20 Khris Butt MD [address] [place] [address] Assigned Heart and Vascular Provider 12/14/21 02/14/22 Roderick Morelos MD [address] [place] [address] Cardiovascular Disease 02/03/22 Roderick Morelos MD [address] [place] 076805 Assigned Heart and Vascular Provider 02/15/22 07/18/22 Magno Wood MD [address] [place] [address] 640125 Otolaryngology 02/21/22 Sophie Ocasio AuD [address]09 [place], [place] 434105 Resin Remover Audiology 02/21/22 Parth Ellis MD [address] [place] [address] Assigned Heart and Vascular Provider 07/19/22 07/25/22 Roderick Morelos MD [address] [place] [address] Assigned Heart and Vascular Provider 07/26/22 08/08/22 Henny Rosales APRN SETTER HELPER [address] [place] [address] Assigned Heart and Vascular Provider 08/09/[address] [place] [address] 829345 Registered Dietitian Dietitian, Registered 09/02/22 Christiane Rodríguez MD [address] [place] [address] 396 [place], [place] 822485 Otolaryngology 11/12/22 Luis A Escobedo MD [address] [place] [address] 583965 Assigned Surgical Provider 11/01/22 11/28/22 Chely Fernandez PA-C [address] [place] [address] 897065 Assigned Surgical Provider 11/29/22 02/06/23 Jing Cadena APRN [facility] [address] [place] [address] 450 [place], [place] 120335 Clinical Nurse Specialist Anesthesiology 01/15/23 Radha Lopez [facility] [address] [place] [address] 828645 Pharmacist Pharmacist 01/16/23 Luis A Escobedo MD [address] [place] [address] 711265 Assigned Surgical Provider 02/07/23 04/15/23 Geri Loza PA-C [address] [place] [address] 530315 Assigned Surgical Provider 04/16/23 Raina Patterson APRN [facility] [address] [place] [address] Nurse Practitioner Cardiovascular Disease 05/11/23 documented as of this encounter
--- OUTSIDE RECORDS SUMMARY | 2024-01-08 10:29 | XMS_ITS | Encounter Summary ---
Author Organization [facility] Address [address] [place] [address] Care Team Providers Care Marketing Compliance Manager Name Role Phone Edda Agudelo PA-C Primary Care Provider + [phone] Magno Wood MD Unavailable [phone] [place] [facility] Primary Care Provider Unavailable Parth Ellis MD Unavailable [phone] Tati Ayala MD Unavailable [phone] Khris Butt MD Unavailable [phone] MoerlosRoderick nunes MD Unavailable [phone] Roderick Morelos MD Unavailable [phone] Magno Wood MD Unavailable Sophie Ocasio Unavailable [phone] Parth Ellis MD Unavailable [phone] MorelosRoderick nunes MD Unavailable [phone] Henny Rosales APRN CHECKMAN Unavailable [phone] [facility] Primary Care Pr ovider Sharee Oliva RD Unavailable [phone] Kaykay Duarte NP Primary Care Provider [phone] Christiane Rodríguez MD Unavailable [phone] Luis A Escobedo MD Unavailable + [phone] Chely Fernandez PA-C Unavailable [phone] Cadena Jing Susie F[facility]ES [facility] Unavailable + [phone] Radha Lopez [facility] Unavailable [phone] Luis A Escobedo MD Unavailable +[phone] Dago Geri Gaytan PA-C Unavailable [phone] Yesenia Raina F[facility]ES [facility] Unavailable Encounter Details Date Type Department Care Team (Late st Contact Info) Description 02/08/2007 Office [facility] 6[address] [facility] [address] [place] [address] Reji Li MD 6405 [facility] [address] [place] [address] Social History Tobacco Use Types [...] lives with and children; Place of - [place]; Hours Worked - 30 hours per week; [...] valve 2. F/U with Imani Ott, MSN, CHECKMAN 3 months Reji Li M.D. documented in this encounter Plan of Treatment Not on file documented as of this encounter Visit Diagnoses Not on filedocumented in this encounter Additional Health Concerns Infection Onset Date Last Indicated Resolved Time Rule Out COVID-19 03/19/2020 03/19/2020 03/19/2020 6:22 PM ACTIVATED SLUDGE OPERATOR COVID-19 03/19/2020 03/19/2020 04/09/2020 11:3 9 PM ACTIVATED SLUDGE OPERATOR Rule Out COVID-19 06/19/2021 06/19/2021 06/19/2021 1:37 AM CDT Rule Out COVID-19 10/29/2021 10/29/2021 10/29/2021 1:07 AM CDT documented as of this encounter Care Teams Marketing Compliance Manager Relationship Specialty Start Date End Date Edda Agudelo PA-C [place] [id number] [address] [place] [address] 007538 PCP - General 05/04/12 10/11/19 Ernestina Martini 420 [facility] 396 [place] [address] PCP - General Family Practice 10/12/19 08/18/22 [facility] [address] [place], [place] 32260337 PCP - General 08/19/22 10/14/22 Kaykay Duarte, METAL PATTERNMAKER [address] [place] [address] PCP - General 10/15/22 Magno Wood MD [address] [place] [facility] 396 [place] [address] Otolaryngology 05/29/15 08/02/17 Parth Ellis MD [address] [place] [address] Assigned Heart and Vascular Provider 01/13/20 12/13/21 Tati Ayala MD [address] [facility] 200 [place], [place] 056930 Assigned Endocrinology Provider 01/13/20 12/29/20 Khris Butt MD [address] [place] [address] Assigned Heart and Vascular Provider 12/14/21 02/14/22 Roderick Morelos MD [address] [place] [address] Cardiovascular Disease 02/03/22 Roderick Morelos MD [address] [place] [address] Assigned Heart and Vascular Provider 02/15/22 07/18/22 Magno Wood MD 420 [facility] 396 [place] [address] Otolaryngology 02/21/22 Sophie Ocasio AuD 9 [place], [place] 441675 Contact Acid Plant Operator Helper Audiology 02/21/22 Parth Ellis MD [address] [place], [place] 892925 Assigned Heart and Vascular Provider 07/19/22 07/25/22 Roderick Morelos MD [address] [place], [place] 937775 Assigned Heart and Vascular Provider 07/26/22 08/08/22 Henny Rosales APRN CHECKMAN [address] [place] [address] Assigned Heart and Vascular Provider 08/09/[address] [place] [address] [phone] Registered Dietitian Dietitian, Registered 09/02/22 Christiane Rodríguez MD [address] [place] [address] 396 [place] [address] Otolaryngology 11/12/22 Luis A Escobedo MD [address] [place] [address] 195 [place] [address] Assigned Surgical Provider 11/01/22 11/28/22 Chely Fernandez PA-C [address] [place] [address] 171805 Assigned Surgical Provider 11/29/22 02/06/23 Jing Cadena APRN CLERICAL ASSOCIATE 420 [facility] 450 [place] [address] Clinical Nurse Specialist Anesthesiology 01/15/23 Radha Lopez [facility] 909 [place], [place] 556715 Pharmacist Pharmacist 01/16/23 Luis A Escobedo MD 420 [facility] [address] [place], [place] 714835 Assigned Surgical Provider 02/07/23 04/15/23 Geri Loza PA-C [address] [place] [address] 097495 Assigned Surgical Provider 04/16/23 Raina Patterson APRN CHECKMAN [address] [place], [place] 232385 Nurse Practitioner Cardiovascular Disease 05/11/23 documented as of this encounter
[2024-01-08 10:41] LABS: Appearance Urine Clear (Clear); Bilirubin Urine Negative (Negative); Blood Urine 2+ (Negative); Color Urine Yellow (Yellow); Glucose Urine Negative (Negative); Ketones Urine Negative (Negative); Leukocyte Esterase Urine Negative (Negative); Nitrite Urine Negative (Negative); Protein Urine Trace (Negative); pH Urine 6.5 (5.0-8.5)
[2024-01-08 10:43] LABS: Basophils Absolute Auto 0.04 K/uL (0.00-0.30); Basophils Percent Auto 0.4 % (0.0-3.0); Eosinophils Absolute Auto 0.04 K/uL (0.00-0.50); Eosinophils Percent Auto 0.4 % (0.0-7.0); Hematocrit 35.8 % (33.0-51.0); Hemoglobin* 11.4 gm/dL (12.0-16.0); Immature Granulocytes Abs Auto 0.04 K/uL (0.00-0.30); Immature Granulocytes Pct Auto 0.4 %; Mean Corpuscular HGB Conc 32 gm/dL (32-36); Mean Corpuscular Hemoglobin 28 pg (26-34); Mean Corpuscular Volume 88 fL (80-100); Monocytes Percent Auto 12.3 % (0.0-11.0); Neutrophils Absolute Auto 6.63 K/uL (1.7-7.0); Neutrophils Percent Auto 71.5 % (42.0-72.0); Platelet Count* 172 K/uL (140-440); RDW Coefficient of Variation % 13.6 % (11.5-15.5); Red Blood Count 4.08 m/uL (4.00-5.20); White Blood Count* 9.28 K/uL (4.50-11.00)
[2024-01-08 10:54] LABS: Chloride* 99 mmol/L (96-114); Potassium* 3.5 mmol/L (3.6-5.1); Slide Review Reflex No; Sodium* 133 mmol/L (135-149)
[2024-01-08] MEDS: HYDROmorphone 0.5 mg/0.5 ml inj IVP (10:56)
[2024-01-08 10:57] LABS: Anion Gap 7 mEq/L (7-15); Blood Urea Nitrogen* 9 mg/dL (7-30); Carbon Dioxide* 27 mmol/L (20-32); Creatinine* 0.7 mg/dL (0.5-1.5); Est. Creatinine Clearance* 85.01; Estimated Glomerular Filt Rate 102 ml/min
[2024-01-08 10:58] LABS: Glucose* 147 mg/dL (60-115)
[2024-01-08 11:15] LABS: Bacteria Urine Few; RBC Urine 0-2 (0-2); Squamous Epithelial Cell Urine Few (None-Few); WBC Urine 0-2 (0-5)
[2024-01-08 11:29] LABS: PCR FLU A Negative PCR FLU A (Negative); PCR FLU B Negative PCR FLU B (Negative); PCR RSV Negative PCR RSV (Negative); SARS PCR* Negative SARS-CoV-2 (Negative)
== END 2024-01-08 12:47 | disposition home or self-care (01) ==
PROVIDERS: Emergency Provider Family Medicine
DX: R50.82 Postprocedural fever (principal); R91.1 Solitary pulmonary nodule
CPT/HCPCS: 36415; 71275; 80048; 81001; 85025; 87086; 87631; 96374; 99284; 99285; J1171; Q9967

== ENCOUNTER 2024-01-11 23:07 | Emergency (ER) | payer BC, SELFPAY ==
[2024-01-11 23:07] VITALS: RESP 18; O2SAT 97
--- OUTSIDE RECORDS SUMMARY | 2024-01-11 23:11 | XMS_ITS | Encounter Summary ---
Author Organization [place] [facility] Address [address] [place] [address] Care Team Providers Care Cancer Registry Coordinator Name Role Phone Roderick Morelos MD Unavailable [phone] Magno Wood MD Unavailable [phone] Sophie Ocasio AuD Unavailable [phone] Henny Rosales SWINE NUTRITIONIST CLEANERS Unavailable Sharee Oliva [address] Unavailable [phone] Kaykay Duarte NP Primary Care Provider Christiane Rodríguez MD Unavailable Jing Cadena SWINE NUTRITIONIST CUSTOMER SUPPORT AGENT Unavailable Radha Lopez [facility] Unavailable Luis A Escobedo MD Unavailable [phone] Geri LozaC Unavailable [phone] Raina Patterson SWINE NUTRITIONIST CLEANERS Unavailable [phone] Encounter Details Date Type Department Care Team (Late st Contact Info) Description 03/24/2023 [facility] [address] 4th [place] [address] Angélica Milligan Social History Tobacco [...] documented as of this encounter Care Teams Cancer Registry Coordinator Relationship Specialty Start Date End Date Kaykay Duarte SENIOR PROGRAMMER [address] [place] [address] PCP - General 10/15/22 Roderick Morelos MD [address] [place] [address] Cardiovascular Disease 02/03/22 Magno Wood MD [address] [place] [address] 600565 Otolaryngology 02/21/22 Sophie Ocasio AuD 909 [place], [place] 685395 Field Representative Audiology 02/21/22 Henny Rosales APRN CLEANERS [address] [place] [address] Assigned Heart and Vascular Provider 08/09/[address] 9 [place], [place] 630625 Registered Dietitian Dietitian, Registered 09/02/22 Christiane Rodríguez MD 420 [facility] 396 [place], [place] 156095 Otolaryngology 11/12/22 Jing Cadena APRN CUSTOMER SUPPORT AGENT 420 [facility] 450 [place], [place] 774695 Clinical Nurse Specialist Anesthesiology 01/15/23 Radha Lopez [facility] [address] [place] [address] 536945 Pharmacist Pharmacist 01/16/23 Luis A Escobedo MD 420 [facility] 195 [place], [place] 273335 Assigned Surgical Provider 02/07/23 04/15/23 Geri Loza PA-C [address] [place] [address] 627075 Assigned Surgical Provider 04/16/23 Raina Patterson, GINA CLEANERS [address] [place] 335955 Nurse Practitioner Cardiovascular Disease 05/11/23 documented as of this encounter
--- OUTSIDE RECORDS SUMMARY | 2024-01-11 23:11 | XMS_ITS | Encounter Summary ---
Author Organization [place] Address [address] [place] [address] Care Team Providers Care Photographer Assistant Name Role Phone Roderick Morelos MD Unavailable [phone] Magno Wodo MD Unavailable [phone] Sophie Ocasio AuD Unavailable [phone] Henny Rosales SENIOR TAX MANAGER DYNAMICS AX TECHNICAL ARCHITECT Unavailable Sharee Oliva [address] Unavailable [phone] Kaykay Duarte NP Primary Care Provider Christiane Rodríguez MD Unavailable Jing Cadena SENIOR TAX MANAGER SUPERVISOR SPEECH Unavailable Radha Lopez [facility] Unavailable Luis A Escobedo MD Unavailable [phone] Geri LozaC Unavailable [phone] Raina Patterson SENIOR TAX MANAGER DYNAMICS AX TECHNICAL ARCHITECT Unavailable [phone] Encounter Details Date Type Department Care Team (Late st Contact Info) Description 03/11/2023 MyC Medical Advice Initial Department [facility] [place] Social History Tobacco Use Types Packs/Day Years [...] documented as of this encounter Care Teams Photographer Assistant Relationship Specialty Start Date End Date Kaykay Duarte [place] [address] [place] [address] PCP - General 10/15/22 Roderick Morelos MD [address] [place] 419835 Cardiovascular Disease 02/03/22 Magno Wood MD [address] 009765 Otolaryngology 02/21/22 Sophie Ocasio AuD [address] [place] [address] 755295 Spa Coordinator Audiology 02/21/22 Henny Rosales APRN DYNAMICS AX TECHNICAL ARCHITECT [address] [place] [address] Assigned Heart and Vascular Provider 08/09/[address] 909 [place] [address] Registered Dietitian Dietitian, Registered 09/02/22 Christiane Rodríguez MD 420 [facility] 396 [place] [address] Otolaryngology 11/12/22 Jing Cadena, SENIOR TAX MANAGER SUPERVISOR SPEECH 420 [facility] 450 [place], [place] 677395 Clinical Nurse Specialist Anesthesiology 01/15/23 Radha Lopez, [facility] 909 [place] [address] Pharmacist Pharmacist 01/16/23 Luis A Escobedo MD 420 [facility] 195 [place] [address] Assigned Surgical Provider 02/07/23 04/15/23 Geri Loza PA-C 9 [place] [address] Assigned Surgical Provider 04/16/23 Raina Patterson, GINA DYNAMICS AX TECHNICAL ARCHITECT [address] [facility] [address] [place] 782095 Nurse Practitioner Cardiovascular Disease 05/11/23 documented as of this encounter
--- OUTSIDE RECORDS SUMMARY | 2024-01-11 23:11 | XMS_ITS | Encounter Summary ---
Author Organization [place] Address [facility]0 [place] [address] Care Team Providers Care Personnel Coordinator Name Role Phone Roderick Morelos MD Unavailable [phone] Magno Wood MD Unavailable [phone] Sophie Ocasio AuD Unavailable Henny Rosales LABORATORY ASST PHYSICIAN OFFICE CLIN ASST Unavailable Sharee Oliva RD Unavailable [phone] Kaykay Duarte NP Primary Care Provider Christiane Rodríguez MD Unavailable Jing Cadena LABORATORY ASST BULL FIDDLE PLAYER Unavailable Radha Lopez [facility] Unavailable Luis A Escobedo MD Unavailable Geri LozaC Unavailable Raina Patterson LABORATORY ASST PHYSICIAN OFFICE CLIN ASST Unavailable [phone] Encounter Details Date Type Department Care Team (Late st Contact Info) Description 03/17/2023 MyC Medical Advice UR PREOP/PHASE II 2450 [place] [address] Pearl Rocha, RN Social History Tobacco [...] documented as of this encounter Care Teams Personnel Coordinator Relationship Specialty [place] [address] [place] [address] PCP - General 10/15/22 Roderick Mroelos MD [address] [place] [address] Cardiovascular Disease 02/03/22 Magno Wood MD [address] [place] [address] 522265 Otolaryngology 02/21/22 Sophie Ocasio AuD 909 [place], [place] 540405 Telegraph Office Route Aide Audiology 02/21/22 Henny Rosales APRN PHYSICIAN OFFICE CLIN ASST [address] [place] [address]87[address] Assigned Heart and Vascular Provider 08/09/[address] [place] [address] 728665 Registered Dietitian Dietitian, Registered 09/02/22 Christiane Rodríguez MD 420 [facility] 396 [place], [place] 409065 Otolaryngology 11/12/22 Jing Cadena APRN BULL FIDDLE PLAYER 420 [facility] 450 [place], [place] 291505 Clinical Nurse Specialist Anesthesiology 01/15/23 Radha Lopez, [facility] [address] [place] [address] 235055 Pharmacist Pharmacist 01/16/23 Luis A Escobedo MD [address] [place] [address] 195 [place], [place] 145225 Assigned Surgical Provider 02/07/23 04/15/23 Geri Loza PA-C [address] [place] [address] 684505 Assigned Surgical Provider 04/16/23 Raina Patterson, GINA PHYSICIAN OFFICE CLIN ASST [address] [place] 664105 Nurse Practitioner Cardiovascular Disease 05/11/23 documented as of this encounter
--- OUTSIDE RECORDS SUMMARY | 2024-01-11 23:11 | XMS_ITS | Encounter Summary ---
Author Organization [facility] Address [address] [place] [address] Care Team Providers Care Sealer Dry Cell Name Role Phone Roderick Morelos MD Unavailable [phone] Magno Wood MD Unavailable [phone] Sophie Ocasio AuD Unavailable Henny Rosales LIP AND GATE BUILDER RADIO BOARD OPERATOR ANNOUNCER Unavailable Sharee Oliva RD Unavailable [phone] Kaykay Duarte NP Primary Care Provider [phone] Christiane Rodríguez MD Unavailable Jing Cadena LIP AND GATE BUILDER LUNCHROOM OPERATOR Unavailable Radha Lopez [facility] Unavailable Geri Loza PA-C Unavailable Raina Patterson APRN RADIO BOARD OPERATOR ANNOUNCER Unavailable Encounter Details Date Type Department Care Team (Late st Contact Info) Description 10/18/2023 [facility] [address] [address] Radha Lopez, [address] [address] Social History Tobacco Use Types [...] documented as of this encounter Care Teams Sealer Dry Cell Relationship Specialty Start Date End Date Kaykay Duarte SLIVER LAPPER [address] [place] [address] PCP - General 10/15/22 Roderick Morelos MD [address] [place] [address] Cardiovascular Disease 02/03/22 Magno Wood MD [address] [place] [address] [id number] Otolaryngology 02/21/22 Sophie Ocasio, Nick 909 [place], [place] 640085 Hide Cleaner Audiology 02/21/22 Henny Rosales APRN RADIO BOARD OPERATOR ANNOUNCER [address] [place] [address] Assigned Heart and Vascular Provider 08/09/[address] [place] [address] 197095 Registered Dietitian Dietitian, Registered 09/02/22 Christiane Rodríguez MD [address] [place] [address] 396 [place], [place] 066525 Otolaryngology 11/12/22 Jing Cadena APRN LUNCHROOM OPERATOR [address] [place] [address] 450 [place], [place] 683885 Clinical Nurse Specialist Anesthesiology 01/15/23 Radha Lopez, [facility] [address] [place] [address] 520225 Pharmacist Pharmacist 01/16/23 Geri Loza PA-C [address] [place] [address] 360345 Assigned Surgical Provider 04/16/23 Raina Patterson APRN RADIO BOARD OPERATOR ANNOUNCER [address] [facility] [address] [place] 880675 Nurse Practitioner Cardiovascular Disease 05/11/23 documented as of this encounter
--- OUTSIDE RECORDS SUMMARY | 2024-01-11 23:11 | XMS_ITS | Encounter Summary ---
Author Organization [place] Address [address] [place] [address] Care Team Providers Care Subway Repair Supervisor Name Role Phone Roderick Morelos MD Unavailable [phone] Magno Wood MD Unavailable [phone] Sophie Ocasio AuD Unavailable Henny Rosales VALIDATION SOFTWARE FACILITATOR RADIO INSTALLER AUTOMOBILE Unavailable Sharee Oliva [address] Unavailable [phone] Kaykay Duarte NP Primary Care Provider Christiane Rodríguez MD Unavailable Jing Cadena VALIDATION SOFTWARE FACILITATOR CONDENSER CLEANER Unavailable Radha Lopez [facility] Unavailable Luis A Escobedo MD Unavailable [phone] Geri LozaC Unavailable [phone] Raina Patterson VALIDATION SOFTWARE FACILITATOR RADIO INSTALLER AUTOMOBILE Unavailable [phone] Encounter Details Date Type Department Care Team (Late st Contact Info) Description 04/02/2023 [facility] [place] [facility] [address] 4th [place] [address] Tanya Larsen RN Social History [...] documented as of this encounter Care Teams Subway Repair Supervisor Relationship Specialty Start Date End Date Kaykay Duarte DEVELOPMENT PROFESSIONAL [address] [place] [address] PCP - General 10/15/22 Roderick Morelos MD [address] [place] [address] Cardiovascular Disease 02/03/22 Magno Wood MD [address] [place] [address] [phone] Otolaryngology 02/21/22 Sophie Ocasio AuD 909 [place], [place] 631865 Interpreter Translator Audiology 02/21/22 Henny Rosales APRN RADIO INSTALLER AUTOMOBILE [address] [place] [phone] Assigned Heart and Vascular Provider 08/09/[address] [place] [address] Registered Dietitian Dietitian, Registered 09/02/22 Christiane Rodríguez MD 420 [facility] 396 [place], [place] 925345 Otolaryngology 11/12/22 Jing Cadena APRN CONDENSER CLEANER [address] [place] [address] 450 [place], [place] 298505 Clinical Nurse Specialist Anesthesiology 01/15/23 Radha Lopez, [facility] [address] [place] [address] 358265 Pharmacist Pharmacist 01/16/23 Luis A Escobedo MD [address] [place] [address] 195 [place], [place] 965315 Assigned Surgical Provider 02/07/23 04/15/23 Geri Loza PA-C [address] [place] [address] [phone] Assigned Surgical Provider 04/16/23 Raina Patterson, GINA RADIO INSTALLER AUTOMOBILE [address] [place] 589175 Nurse Practitioner Cardiovascular Disease 05/11/23 documented as of this encounter
--- OUTSIDE RECORDS SUMMARY | 2024-01-11 23:11 | XMS_ITS | Clinical Summary ---
Author Organization [employer] [facility] [facility] Address [place], [place] [address] Care Team Providers Care Associate Media Director Name Role Phone Brandan Burleson MD Unavailable Pcp, No Primary Care Provider Unavailabl e [...] solution (FLONASE)Indications :Purulent postnasal drainage Inhale 1 Rice into both nostrils 2 times daily. 1 [...] Type Department Care Team Description 11/26/2023 Telephone [facility] Orthopedics - Joint Replacement Center [facility] [address] [place] [address] Jose Enrique Ricardo PA Concerns (ibuprofen and tylenol not effective for ) 11/25/2023 Telephone [facility] Orthopedics Joint Replacement [facility] [address] [place] [address] Dionisio Agudelo MD Surgery Scheduled 11/20/2023 9:50 AM CDT Office Visit [facility] Orthopedics Joint Replacement [facility] [address] [place] [address] Dionisio Agudelo MD Hip Pain/problem (Right Hip Pain) 11/20/2023 Transcribe Orders [facility] Joint Replacement [facility] [address] [place] [address] Dionisio Agudelo MD 11/20/2023 Travel 11/15/2023 3:42 PM CDT - 11/15/2023 6:12 PM CDT Emergency [address] [address] Monique Ott PA Pelvic joint pain, right [...] age 21-65 05/21/2018 6 ([facility]), 05/22/2011 Zoster (shingles) series for age 50+ (1 of 2) 2018 Lipids for age 45-75 02/10/2021 02/11/2016, 06/29/19 15 COVID-19 vaccine series ( season) 2023 11/28/2020, 06/19/2020 Influenza for age 50-64 11/22/2023 12/22/19 16, 01/01/2015, 01/16/2014, Additional history exists Pneumococcal series for age 6-64 Aged Out No longer eligible based on patient's age to complete this topic Medical Devices Implanted Type Area Nozzle Operator Device Identifier Shelf Expiration Date Model / Serial / Lot Prosth Shiva [id number] - [id number] Implanted:Qty: 1 on 05/20/2005 at [facility] Ent Implants Right: Ear GYRUS ENT 61# / / Procedures Procedure Name Priority Date/Time Associated Diagnosis Comments XR ANKLE 3 VIEWS RIGHT STAT 11/15/2023 5:15 PM CDT XR KNEE 3 VIEWS RIGHT STAT 11/15/2023 5:13 PM CDT XR HIP 2 OR 3 VIEWS W PELVIS RIGHT STAT 11/15/2023 5:12 PM CDT LIPID PANEL W REFLEX MEASURED LDL Routine 02/11/2016 2:52 PM CONCRETE WORKER Hyperlipidemia, unspecified hyperlipidemia type XR MAMMO RAVI BILAT SCREEN Routine 01/30/2016 9:52 AM CONCRETE WORKER Visit for screening mammogram from Last 3 [...] W REFLEX MEASURED LDL (02/11/2016 2:52 PM CONCRETE WORKER) CHOLESTEROL,TOTAL 271(H) 100 - 199 mg/dL 02/11/2016 8:04 PM CONCRETE WORKER [facility] TRIGLYCERIDES 178(H) <150 mg/dL 02/11/2016 8:04 PM CONCRETE WORKER [facility] HDL CHOLESTEROL 49 >40 mg/dL 6 8:04 PM CONCRETE WORKER [facility] NON-HDL CHOLESTEROL 222(H) <145 mg/dl 02/11/2016 8:04 PM CONCRETE WORKER [facility] CHOL/HDL RATIO 5.53(H) <4.50 02/11/2016 8:04 PM CONCRETE WORKER [facility] LDL CHOLESTEROL 186(H) <=130 mg/dL 02/11/2016 8:04 PM CONCRETE WORKER [facility] PATIENT STATUS NON-FASTI NG 02/11/2016 8:04 PM CONCRETE WORKER [facility] Blood BLOOD SPECIMEN / Unknown Venipuncture / Unknown 02/11/2016 2:52 PM CONCRETE WORKER 02/11/2016 2:52 PM CONCRETE WORKER Edda VERGARA [facility] [address] [place] [address], [place] * XR MAMMO RAVI SCREEN BILAT (01/30/2016 9:52 AM CONCRETE WORKER) Anatomical Region Laterality Modality BREASTS, Breast Left, Breast Right Bilateral Mammography Impressions 01/30/2016 11:17 AM CONCRETE WORKER ??There is no radiographic evidence for malignancy. ??Recommend annual mammograms. A lay language report of this examination will be provided to the patient. MAMMOGRAM ASSESSMENT: ??ACR 2 Benign Narrative 01/30/2016 11:17 AM CONCRETE WORKER XR MAMMO RAVI SCREEN JANINE [[id number]] CLINICAL HISTORY: ??This is an asymptomatic 45 y.o. patient. INDICATION FOR EXAM: Mammogram Screening. TECHNIQUE: CC & MLO views were obtained. ??This digital study was evaluated with the assistance of Computer-Aided Detection. Breast Tomosynthesis was used in interpretation. COMPARISON FILMS: Yes 02/10/15 [facility] 01/18/14 [facility] FINDINGS: ??Mammographically, the breast tissue has scattered fibroglandular densities. ??No suspicious masses or microcalcifications. ?? Benign appearing calcifications within both breasts. Brandan Burleson MD MAMMO from Last 3 Months or Most Recently Relevant to Health Maintenance Advance Directives * Full Code (Latest Code Status on File) Date Activated Date Inactivated Comments 05/20/2005 7:01 AM 05/20/2005 4:28 PM Care Teams Associate Media Director Relationship Specialty Start Date End Date Pcp, No . PCP - General 03/24/20 Brandan Burleson MD Gynecology Obstetrics and Gynecology 09/19/15
--- OUTSIDE RECORDS SUMMARY | 2024-01-11 23:11 | XMS_ITS | Referral Summary ---
Author Organization [place] Address [address] [place] [address] Care Team Providers Care Cath Lab Nurse Name Role Phone Roderick Morelos MD Unavailable [phone] Magno Wood MD Unavailable [phone] Sophie Ocasio AuD Unavailable Henny Rosales OFFICE SERVICES ASSISTANT DRAINAGE INSPECTOR Unavailable Sharee Oliva RD Unavailable [phone] Kaykay Duarte NP Primary Care Provider Christiane Rodríguez MD Unavailable [phone] Jing Cadena OFFICE SERVICES ASSISTANT ICE CREAM FREEZER ASSISTANT Unavailable Radha Lopez [facility] Unavailable Geri Loza PA-C Unavailable Raina Patterson APRN DRAINAGE INSPECTOR Unavailable Encounters Date Type Department Care Team Description 10/18/2023 [facility] [address] [address] Radha Lopez, [facility] from Last 3 Months Allergies Active Allergy [...] & Plan: S/p gastric sleeve 08/09/2020 at [facility]. No post op complications. 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 Gastric sleeve was completed 08/09/2020 at [facility] with Dr. Barillas. Starting weight 338lb, BMI [...] Comments Blood Pressure 124/78 03/24/2023 10:20 AM BLANKET BINDER Pulse 70 03/24/2023 10:20 AM BLANKET BINDER Temperature 36.8 ??C (98.2 ??F) 03/24/2023 10:[address] Respiratory Rate 16 03/24/2023 10:20 AM BLANKET BINDER Oxygen Saturation 99% 03/24/2023 10:20 AM BLANKET BINDER Inhaled Oxygen Concentration - - Weight 120.7 kg (266 lb) 04/23/2023 11:55 AM BLANKET BINDER Height 167.6 cm (5' 6) 04/23/2023 11:55 AM BLANKET BINDER Body Mass Index 42.93 04/23/2023 11:55 AM BLANKET BINDER Plan of Treatment Not on file Goals [...] FREE T4 REFLEX Add-On 02/28/2021 1:00 AM BLANKET BINDER 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 [...] - BLOOD ORDERAB LES Performing Organization Address City/[facility]/ZIP Co de Phone Number BREEZE PFT [...] with free T4 reflex (02/28/2021 1:00 AM BLANKET BINDER) TSH 0.86 0.40 - 4.00 mU/L 03/01/2021 4:13 PM BLANKET BINDER LABORATORY Blood STRUCTURE OF RIGHT UPPER LIMB / Unknown Venipuncture / Unknown 02/28/2021 1:00 AM BLANKET BINDER 02/28/2021 1:08 AM BLANKET BINDER Parth Ellis MD LAB - BLOOD ORD ERABLES LABORATORY [facility] Acute Care Lab [address] [facility] Lab (1st floor, no room number) [place] [address], [facility] [phone] from Last 3 Months or Most Recently Relevant to Health Maintenance Additional Health Concerns Active Problems Noted Date Diagnosed Date BRIAN PATHWAY SURGERY IS SCHEDULED 10/15/2022 Advance Directives For more information, please contact: [phone] * Full Code (Latest Code Status on [...] 12:01 PM 05/01/2018 3:45 AM Care Teams Cath Lab Nurse Relationship Specialty Start Date End Date Kaykay Duarte, PROCESS COORDINATOR [address] [place] [address] PCP - General 10/15/22 Roderick Morelos MD [address] [place] [address] Cardiovascular Disease 02/03/22 Magno Wood MD [address] [place] [address] [address] [place], [place] 863875 Otolaryngology 02/21/22 Sophie Ocasio AuD [address] [place] [address] [phone] Personnel Worker Audiology 02/21/22 Henny Rosales APRN DRAINAGE INSPECTOR [address] [place] [address] Assigned Heart and Vascular Provider 08/09/[address] [place] [address] Registered Dietitian Dietitian, Registered 09/02/22 Christiane Rodríguez MD [address] [facility] [address] [place], [place] [address] Otolaryngology 11/12/22 Jing Cadena, OFFICE SERVICES ASSISTANT ICE CREAM FREEZER ASSISTANT 420 [facility] [address] [place], [place] 8939[address] Clinical Nurse Specialist Anesthesiology 01/15/23 Radha Lopez, [facility] [address] [place] [address] 730555 Pharmacist Pharmacist 01/16/23 Geri Loza PA-C [address] [place] [address] 633585 Assigned Surgical Provider 04/16/23 Raina Patterson APRN DRAINAGE INSPECTOR [address] [place], [place] 287775 Nurse Practitioner Cardiovascular Disease 05/11/23
--- OUTSIDE RECORDS SUMMARY | 2024-01-11 23:11 | XMS_ITS | Encounter Summary ---
Author Organization [place] Address [address] [place] [address] Care Team Providers Care Road Engineer Freight Name Role Phone Roderick Morelos MD Unavailable [phone] Magno Wood MD Unavailable [phone] Sophie Ocasio AuD Unavailable Henny Rosales NURSE MONITORING CABLE STRANDER Unavailable Sharee Oliva RD Unavailable [phone] Kaykay Duarte NP Primary Care Provider [phone] Christiane Rodríguez MD Unavailable Jing Cadena NURSE MONITORING INORGANIC CHEMICAL TECHNICIAN Unavailable Radha Lopez [facility] Unavailable Luis A Escobedo MD Unavailable [phone] Geri LozaC Unavailable [phone] Raina Patterson NURSE MONITORING CABLE STRANDER Unavailable [phone] Encounter Details Date Type Department Care Team (Late st Contact Info) Description 03/31/2023 [facility] Medical Advice [facility] Weight Management Clinic [address] 4th [place] [address] Tanya Larsen RN Social History [...] documented as of this encounter Care Teams Road Engineer Freight Relationship Specialty Start Date End Date Kaykay Duarte GROUND INSTRUCTOR ADVANCED [address] [place] [address] PCP - General 10/15/22 Roderick Morelos MD [address] [place] [address] Cardiovascular Disease 02/03/22 Magno Wood MD [address] [place] [address] [id number] Otolaryngology 02/21/22 Sophie Ocasio AuD [address] [place], [place] 722[address] Pilot Control Operator Audiology 02/21/22 Henny Rosales APRN CABLE STRANDER [address] [place] [phone] Assigned Heart and Vascular Provider 08/09/[address] [place] [address] Registered Dietitian Dietitian, Registered 09/02/22 Christiane Rodríguez MD 420 [facility] 396 [place], [place] 99[address] Otolaryngology 11/12/22 Jing Cadena APRN INORGANIC CHEMICAL TECHNICIAN [address] [place] [address] 450 [place], [place] 667275 Clinical Nurse Specialist Anesthesiology 01/15/23 Radha Lopez, [facility] [address] [place] [address] 8847[address] Pharmacist Pharmacist 01/16/23 Luis A Escobedo MD [address] [place] [address] 195 [place], [place] 996725 Assigned Surgical Provider 02/07/23 04/15/23 Geri Loza PA-C [address] [place] [address] 171325 Assigned Surgical Provider 04/16/23 Raina Patterson, GINA CABLE STRANDER [address] [place] [address]6595 Nurse Practitioner Cardiovascular Disease 05/11/23 documented as of this encounter
--- OUTSIDE RECORDS SUMMARY | 2024-01-11 23:11 | XMS_ITS | Encounter Summary ---
Author Organization [place] Address [address] [place] [address] Care Team Providers Care Editor Managing Newspaper Name Role Phone Roderick Morelos MD Unavailable [phone] Magno Wood MD Unavailable [phone] Sophie Ocasio AuD Unavailable [phone] Henny Rosales DRUM SPRAYER SALES ORDER CLERK Unavailable [phone] Unavailable [phone] Kaykay Duarte NP Primary Care Provider Christiane Rodríguez MD Unavailable [phone] Jing Cadena DRUM SPRAYER CONVEYOR TENDER CONCRETE MIXING PLANT Unavailable Radha Lopez [facility] Unavailable Luis A Escobedo MD Unavailable Geri LozaC Unavailable [phone] Raina Patterson DRUM SPRAYER SALES ORDER CLERK Unavailable Encounter Details Date Type Department Care Team (Late st Contact Info) Description 04/06/2023 [facility] Medical Advice [facility] Weight Management Clinic [address] 4th [place] [address] Tanya Larsen RN Social History [...] documented as of this encounter Care Teams Editor Managing Newspaper Relationship Specialty Start Date End Date Kaykay Duarte APARTMENT LEASING CONSULTANT [address] [place] [address] PCP - General 10/15/22 Roderick Morelos MD [address] [place] [address] Cardiovascular Disease 02/03/22 Magno Wood MD [address] [place] [address] [id number] Otolaryngology 02/21/22 Sophie Ocasio AuD [address] [place], [place] 942115 Air Hammer Operator Audiology 02/21/22 Henny Rosales APRN SALES ORDER CLERK [address] [place] [phone] Assigned Heart and Vascular Provider 08/09/[address] [place] [address] Registered Dietitian Dietitian, Registered 09/02/22 Christiane Rodríguez MD 420 [facility] 396 [place], [place] 0[address]65 Otolaryngology 11/12/22 Jing Cadena APRN CONVEYOR TENDER CONCRETE MIXING PLANT [address] [place] [address] 450 [place], [place] 571775 Clinical Nurse Specialist Anesthesiology 01/15/23 Radha Lopez, [facility] [address] [place] [address] 738315 Pharmacist Pharmacist 01/16/23 Luis A Escobedo MD [address] [place] [address] 195 [place], [place] 961745 Assigned Surgical Provider 02/07/23 04/15/23 Geri Loza PA-C [address] [place] [address] 700255 Assigned Surgical Provider 04/16/23 Raina Patterson, GINA SALES ORDER CLERK [address] [place] 297665 Nurse Practitioner Cardiovascular Disease 05/11/23 documented as of this encounter
--- OUTSIDE RECORDS SUMMARY | 2024-01-11 23:11 | XMS_ITS | Encounter Summary ---
Author Organization [place] Address [address] [place] [address] Care Team Providers Care Administrative Support Assistant Name Role Phone Roderick Morelos MD Unavailable [phone] Magno Wood MD Unavailable [phone] Sophie Ocasio AuD Unavailable Henny Rosales PRODUCT MANAGEMENT INTERNSHIP MILL ROLL OPERATOR Unavailable [phone] Unavailable [phone] Kaykay Duarte NP Primary Care Provider Christiane Rodríguez MD Unavailable Jing Cadena PRODUCT MANAGEMENT INTERNSHIP OPERATOR TECHNICIAN Unavailable Radha Lopez [facility] Unavailable [phone] Luis A Escobedo MD Unavailable [phone] Geri LozaC Unavailable [phone] Raina Patterson PRODUCT MANAGEMENT INTERNSHIP MILL ROLL OPERATOR Unavailable [phone] Encounter Details Date Type Department Care Team (Late st Contact Info) Description 03/25/[address] [address] [facility] Weight Management Clinic [address] 4th [place] [address] Mychart, [place] Social History Tobacco Use Types Packs/Day Years [...] as of this encounter Care Teams Administrative Support Assistant Relationship Specialty [place] [address] [place] [address] PCP - General 10/15/22 Roderick Morelos MD [address] [place] [address] Cardiovascular Disease 02/03/22 Magno Wood MD [address] [place] [address] 089035 Otolaryngology 02/21/22 Sophie Ocasio AuD [address] [place], [place] 286285 Desulfurizer Operator Audiology 02/21/22 Henny Rosales APRN MILL ROLL OPERATOR [address] [place] [phone] Assigned Heart and Vascular Provider 08/09/[address] [place] [address] Registered Dietitian Dietitian, Registered 09/02/22 Christiane Rodríguez MD 420 [facility] 396 [place], [place] 044545 Otolaryngology 11/12/22 Jing Cadena APRN OPERATOR TECHNICIAN 420 [facility] 450 [place], [place] 292265 Clinical Nurse Specialist Anesthesiology 01/15/23 Radha Lopez, [facility] [address] [place] [address] 540575 Pharmacist Pharmacist 01/16/23 Luis A Escobedo MD [address] [place] [address] 195 [place], [place] 907425 Assigned Surgical Provider 02/07/23 04/15/23 Geri Loza PA-C [address] [place] [address] 467075 Assigned Surgical Provider 04/16/23 Raina Patterson, GINA MILL ROLL OPERATOR [address] [place] [address]05 Nurse Practitioner Cardiovascular Disease 05/11/23 documented as of this encounter
--- OUTSIDE RECORDS SUMMARY | 2024-01-11 23:11 | XMS_ITS | Encounter Summary ---
Author Organization [place] Address [address] [place] [address] Care Team Providers Care Box Loader Name Role Phone Roderick Morelos MD Unavailable [phone] Magno Wood MD Unavailable [phone] Sophie Ocasio AuD Unavailable Henny Rosales WAISTBAND SETTER BROADCAST ENGINEER Unavailable Sharee [address]iva [address] Unavailable [phone] Kaykay Duarte ENVIRONMENTAL MONITORING SPECIALIST Primary Care Provider Christiane Rodríguez MD Unavailable Jing Cadena WAISTBAND SETTER STRUCTURER Unavailable Radha Lopez [facility] Unavailable Luis A Escobedo MD Unavailable [phone] Geri LozaC Unavailable [phone] Raina Patterson WAISTBAND SETTER BROADCAST ENGINEER Unavailable Encounter Details Date Type Department Care Team (Late st Contact Info) Description 03/21/2023 [facility] Adv[facility] Weight Management Clinic [place] [phone] [facility] 4th [place] [address] Luis A Escobedo MD [address] [place] [address] 195 [place] [address] Social History Tobacco Use Types Packs/Day Years [...] documented as of this encounter Care Teams Box Loader Relationship Specialty Start Date End Date Kaykay Duarte, ENVIRONMENTAL MONITORING SPECIALIST [address] [place] [address]647 PCP - General 10/15/22 Roderick Morelos MD [address] [place], [place] [address] Cardiovascular Disease 02/03/22 Magno Wood MD 420 [facility] 396 [place], [place] [address] Otolaryngology 02/21/22 Sophie Ocasio AuD 909 [place], [place] 729605 Medical Device Audiology 02/21/22 Henny Rosales APRN BROADCAST ENGINEER [address] [place] [address] Assigned Heart and Vascular Provider 08/09/[address] [place] [address] Registered Dietitian Dietitian, Registered 09/02/22 Christiane Rodríguez MD 420 [facility] 396 [place], [place] 8[address]055 Otolaryngology 11/12/22 Jing Cadena, WAISTBAND SETTER STRUCTURER 420 [facility] 450 [place], [place] [address] Clinical Nurse Specialist Anesthesiology 01/15/23 Radha Lopez, [facility] 909 [place], [place] 292875 Pharmacist Pharmacist 01/16/23 Luis A Escobedo MD 420 [facility] 195 [place] [address] Assigned Surgical Provider 02/07/23 04/15/23 Geri Loza PA-C 909 [place] [address] Assigned Surgical Provider 04/16/23 Raina Patterson APRN BROADCAST ENGINEER [address] [place] [address] Nurse Practitioner Cardiovascular Disease 05/11/23 documented as of this encounter
--- OUTSIDE RECORDS SUMMARY | 2024-01-11 23:11 | XMS_ITS | Encounter Summary ---
Author Organization [place] Address [address] [place] [address] Care Team Providers Care Casino Slot Supervisor Name Role Phone Roderick Morelos MD Unavailable [phone] Magno Wood MD Unavailable [phone] Sophie Ocasio AuD Unavailable [phone] Henny Rosales MEDICAL LAB DIRECTOR KNOWLEDGE MANAGEMENT ADVISOR Unavailable Sharee Oliva [address] Unavailable [phone] Kaykay Duarte NP Primary Care Provider Christiane Rodríguez MD Unavailable Jing Cadena MEDICAL LAB DIRECTOR M60A2 ARMOR CREWMAN Unavailable Radha Lopez [facility] Unavailable [phone] Geri Loza PA-C Unavailable Raina Patterson APRN KNOWLEDGE MANAGEMENT ADVISOR Unavailable [phone] Encounter Details Date Type Department Care Team (Late st Contact Info) Description 04/23/2023 [facility] [place] 784969 [facility] 4th [place] [address] Kang Griffiths Social History Tobacco [...] documented as of this encounter Care Teams Casino Slot Supervisor Relationship Specialty Start Date End Date Kaykay Duarte, FRAME BUILDER [address] [place] [address] PCP - General 10/15/22 Roderick Morelos MD [address] [place] [address] Cardiovascular Disease 02/03/22 Magno Wood MD 420 [facility] 396 [place], [place] [address] Otolaryngology 02/21/22 Sophie Ocasio AuD 909 [place], [place] [address]855 Lawn Technician Audiology 02/21/22 Henny Rosales APRN KNOWLEDGE MANAGEMENT ADVISOR [address] [place] [id number] Assigned Heart and Vascular Provider 08/09/[address] 9 [place], [place] 727895 Registered Dietitian Dietitian, Registered 09/02/22 Christiane Rodríguez MD 420 [facility] 396 [place], [place] [address]105 Otolaryngology 11/12/22 Jing Cadena APRN M60A2 ARMOR CREWMAN 420 [facility] 450 [place] [address] Clinical Nurse Specialist Anesthesiology 01/15/23 Radha Lopez, [facility] [address] [place] [address] 866505 Pharmacist Pharmacist 01/16/23 Geri Loza PA-C [address] [place] [address] 288135 Assigned Surgical Provider 04/16/23 Raina Patterson APRN KNOWLEDGE MANAGEMENT ADVISOR [address] [facility] [address] [place] [address]85 Nurse Practitioner Cardiovascular Disease 05/11/23 documented as of this encounter
--- OUTSIDE RECORDS SUMMARY | 2024-01-11 23:11 | XMS_ITS | Encounter Summary ---
Author Organization [place] Address [address] [place] [address] Care Team Providers Care Cylinder Tester Name Role Phone Roderick Morelos MD Unavailable [phone] Magno Wood MD Unavailable [phone] Sophie Ocasio AuD Unavailable Henny Rosales RETINAL SURGEON TRACK VEHICLE REPAIRER Unavailable [phone] Unavailable [phone] Kaykay Duarte NP Primary Care Provider Christiane Rodríguez MD Unavailable [phone] Jing Cadena RETINAL SURGEON DOWEL SETTING MACHINE OPERATOR Unavailable Radha Lopez [facility] Unavailable Luis A Escobedo MD Unavailable [phone] Geri LozaC Unavailable [phone] Raina Patterson RETINAL SURGEON TRACK VEHICLE REPAIRER Unavailable Encounter Details Date Type Department Care Team (Late st Contact Info) Description 04/14/2023 [facility] Medical Advice [facility] [address] 4th [place] [address] Tanya Larsen RN Social History [...] documented as of this encounter Care Teams Cylinder Tester Relationship Specialty Start Date End Date Kaykay Duarte PRESS OPERATOR [employer] [address] [place] [address] PCP - General 10/15/22 Roderick Morelos MD [address] [place] [address] Cardiovascular Disease 02/03/22 Magno Wood MD [address] [place] [address] [phone] Otolaryngology 02/21/22 Sophie Ocasio AuD 909 [place], [place] 490895 Molecular Genetic Pathologist Audiology 02/21/22 Henny Rosales APRN TRACK VEHICLE REPAIRER [address] [place] [phone] Assigned Heart and Vascular Provider 08/09/[address] [place] [address] Registered Dietitian Dietitian, Registered 09/02/22 Christiane Rodríguez MD 420 [facility] 396 [place], [place] 513085 Otolaryngology 11/12/22 Jing Cadena APRN DOWEL SETTING MACHINE OPERATOR [address] [place] [address] 450 [place], [place] 108205 Clinical Nurse Specialist Anesthesiology 01/15/23 Radha Lopez, [facility] [address] [place] [address] 604385 Pharmacist Pharmacist 01/16/23 Luis A Escobedo MD [address] [place] [address] 195 [place], [place] 845375 Assigned Surgical Provider 02/07/23 04/15/23 Geri Loza PA-C [address] [place] [address] 165275 Assigned Surgical Provider 04/16/23 Raina Patterson, GINA TRACK VEHICLE REPAIRER [address] [place] 239395 Nurse Practitioner Cardiovascular Disease 05/11/23 documented as of this encounter
--- OUTSIDE RECORDS SUMMARY | 2024-01-11 23:11 | XMS_ITS | Clinical Summary ---
Author Organization [place] Address [address] [place] [address] 46867 Care Team Providers Care Squirrel Worker Name Role Phone Roderick Morelos MD Unavailable [phone] Magno Wood MD Unavailable [phone] Sophie Ocasio AuD Unavailable [phone] Henny Rosales ROPER OPERATOR MARBLE SUPERVISOR Unavailable Sharee Oliva RD Unavailable [phone] Kaykay Duarte NP Primary Care Provider Christiane Rodríguez MD Unavailable Jing Cadena ROPER OPERATOR DISABILITY SERVICES COORDINATOR Unavailable Radha Lopez [facility] Unavailable Geri LozaC Unavailable [phone] Raina Patterson APRN MARBLE SUPERVISOR Unavailable [phone] Allergies Active Allergy Reactions Criticality Noted Date [...] 36 Lowest O2 Sat: 87% Lulyhawla nena Hypothyroidism, unspecified type 06/28/2019 Cervical high risk HPV (human papillomavirus) te st positive 08/05/2017 Overview: Overview: [facility] Review: History: 2018: NILM HPV+ [...] Date Type Department Care Team Description 10/18/2023 [facility] Medical Advice [facility] Heart [address] [address] Radha Lopez [facility] from Last 3 Months Immunizations Name Administration [...] Comments Blood Pressure 124/78 03/24/2023 10:20 AM SOCIAL MEDIA SPECIALIST Pulse 70 03/24/2023 10:20 AM SOCIAL MEDIA SPECIALIST Temperature 36.8 ??C (98.2 ??F) 03/24/2023 10:[address] Respiratory Rate 16 03/24/2023 10:20 AM SOCIAL MEDIA SPECIALIST Oxygen Saturation 99% 03/24/2023 10:20 AM SOCIAL MEDIA SPECIALIST Inhaled Oxygen Concentration - - Weight 120.7 kg (266 lb) 04/23/2023 11:55 AM SOCIAL MEDIA SPECIALIST Height 167.6 cm (5' 6) 04/23/2023 11:55 AM SOCIAL MEDIA SPECIALIST Body Mass Index 42.93 04/23/2023 11:55 AM SOCIAL MEDIA SPECIALIST Plan of Treatment Health Maintenance Due Date [...] Type Associated Problems Recent Progress Patient-Stated? Author [facility] PATHWAY SURGERY IS SCHEDULED Care Plan [facility] SURGERY IS SCHEDULED No Luis A Escobedo [...] FREE T4 REFLEX Add-On 02/28/2021 1:00 AM SOCIAL MEDIA SPECIALIST 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 [...] with free T4 reflex (02/28/2021 1:00 AM SOCIAL MEDIA SPECIALIST) TSH 0.86 0.40 - 4.00 mU/L 03/01/2021 4:13 PM SOCIAL MEDIA SPECIALIST LABORATORY Blood STRUCTURE OF RIGHT UPPER LIMB / Unknown Venipuncture / Unknown 02/28/2021 1:00 AM SOCIAL MEDIA SPECIALIST 02/28/2021 1:08 AM SOCIAL MEDIA SPECIALIST Parth Ellis MD LAB - BLOOD ORD ERABLES LABORATORY [facility] Acute Care Lab [address] Lab (1st floor, no room number) [place] [address], [facility] [phone] from Last 3 Months or Most Recently Relevant to Health Maintenance Additional Health Concerns Active Problems Noted Date Diagnosed Date [facility] PATHWAY SURGERY IS SCHEDULED 10/15/2022 Advance Directives For more information, please contact: [phone] * Full Code (Latest Code Status on [...] 12:01 PM 05/01/2018 3:45 AM Care Teams Squirrel Worker Relationship Specialty [place] [address] [place] [address] PCP - General 10/15/22 Roderick Morelos MD [address] [place], [place] 882805 Cardiovascular Disease 02/03/22 Magno Wood MD 420 [facility] 396 [place], [place] 149455 Otolaryngology 02/21/22 Sophie Ocasio AuD 909 [place], [place] 378965 Media Director Audiology 02/21/22 Henny Rosales, ROPER OPERATOR MARBLE SUPERVISOR [address] [place] [address] Assigned Heart and Vascular Provider 08/09/[address] 909 [place], [place] 278575 Registered Dietitian Dietitian, Registered 09/02/22 Christiane Rodríguez MD 420 [facility] 396 [place], [place] 822135 Otolaryngology 11/12/22 Jing Cadena, ROPER OPERATOR DISABILITY SERVICES COORDINATOR [address] [facility] 450 [place], [place] 708265 Clinical Nurse Specialist Anesthesiology 01/15/23 Radha Lopez, [facility] [address] [place] [address] 342135 Pharmacist Pharmacist 01/16/23 Geri Loza PA-C 9 [place] [address] Assigned Surgical Provider 04/16/23 Raina Patterson APRN MARBLE SUPERVISOR [address] [place] [address] Nurse Practitioner Cardiovascular Disease 05/11/23
[2024-01-11 23:12] VITALS: BP 132/74; PULSE 78; RESP 20; TEMP 36.9; O2SAT 97; BMI 39.5
--- OUTSIDE RECORDS SUMMARY | 2024-01-11 23:12 | XMS_ITS | Encounter Summary ---
Author Organization [place] Address [address] [place] [address]1111 Care Team Providers Care Detacker Name Role Phone Roderick Morelos MD Unavailable [phone] Magno Wood MD Unavailable [phone] Sophie Ocasio AuD Unavailable Henny Rosales ARCHIVAL STUDIES PROFESSOR MOLD SHEET CLEANER Unavailable Sharee Oliva RD Unavailable [phone] Kaykay Duarte RESEARCH AND DEVELOPMENT MANAGER Primary Care Provider [phone] Christiane Rodríguez MD Unavailable [phone] Chely FernandezC Unavailable [phone] Jing Cadena ARCHIVAL STUDIES PROFESSOR ROAD TEST EXAMINER Unavailable Radha Lopez [facility] Unavailable LuisA Escobedo MD Unavailable [phone] Geri LozaC Unavailable [phone] Raina Patterson ARCHIVAL STUDIES PROFESSOR MOLD SHEET CLEANER Unavailable [phone] Encounter Details Date Type Department Care Team (Late st Contact Info) Description 01/21/2023 [facility] [address] 4th [place] [address] Radha Dominguez, RN 420 [facility] 195 [place] [address] Social History Tobacco Use Types [...] documented as of this encounter Care Teams Detacker Relationship Specialty [place] [address] [place] [address] PCP - General 10/15/22 Roderick Morelos MD [address] [place] [address] Cardiovascular Disease 02/03/22 Magno Wood MD 420 [facility] 396 [place], [place] 487865 Otolaryngology 02/21/22 Sophie Ocasio AuD 909 [place], [place] 913215 Float Operator Audiology 02/21/22 Henny Rosales, ARCHIVAL STUDIES PROFESSOR MOLD SHEET CLEANER [address] [place] [address] Assigned Heart and Vascular Provider 08/09/[address] [place] [address] [phone] Registered Dietitian Dietitian, Registered 09/02/22 Christiane Rodríguez MD [address] [place] [address] 396 [place], [place] 613425 Otolaryngology 11/12/22 Chely Fernandez PA-C [address] [place] [address] 493785 Assigned Surgical Provider 11/29/22 02/06/[address] TEST EXAMINER [address] [place] [address] 450 [place] [address] Clinical Nurse Specialist Anesthesiology 01/15/23 Radha Lopez, [facility] [address] [place] [address] 758455 Pharmacist Pharmacist 01/16/23 Luis A Escobedo MD [address] [place] [address] 195 [place], [place] 273875 Assigned Surgical Provider 02/07/23 04/15/23 Geri Loza PA-C [address] [place] [address] 997025 Assigned Surgical Provider 04/16/23 Raina Patterson APRN [facility] [address] [facility] [address] [place] [address] Nurse Practitioner Cardiovascular Disease 05/11/23 documented as of this encounter
--- OUTSIDE RECORDS SUMMARY | 2024-01-11 23:12 | XMS_ITS | Encounter Summary ---
Author Organization [place] Address [address] [place] [address] Care Team Providers Care Curb And Gutter Laborer Name Role Phone Roderick Morelos MD Unavailable [phone] Magno oWod MD Unavailable [phone] Sophie Ocasio AuD Unavailable Henny Rosales ANTHROPOMETRIST SEO EXPERT Unavailable Sharee [address]iva [address] Unavailable [phone] Kaykay Duarte CLUTCH MECHANIC Primary Care Provider Christiane Rodríguez MD Unavailable Chely FernandezC Unavailable [phone] Jing Cadena ANTHROPOMETRIST LEHR ATTENDANT Unavailable Radha Lopez [facility] Unavailable Luis A Escobedo MD Unavailable [phone] Geri LozaC Unavailable [phone] Raina Patterson ANTHROPOMETRIST SEO EXPERT Unavailable [phone] Encounter Details Date Type Department Care Team (Late st Contact Info) Description 01/07/2023 [facility] Weight Management Clinic [address] 4th [place] [address] Daniela [place] Social History Tobacco Use Types [...] documented as of this encounter Care Teams Curb And Gutter Laborer Relationship Specialty [place] [address] [place] [address] [facility] [place] [address] PCP - General 10/15/22 Roderick Morelos MD [address] [place] [address] Cardiovascular Disease 02/03/22 Magno Wood MD [address] [place] [address] 910425 Otolaryngology 02/21/22 Sophie Ocasio AuD [address] [place] [address] [phone] Associate Professor Of Education Audiology 02/21/22 Henny Rosales APRN SEO EXPERT [address] [place] [address] Assigned Heart and Vascular Provider 08/09/[address] [place] [address] 999535 Registered Dietitian Dietitian, Registered 09/02/22 Christiane Rodríguez MD [address] [place] [address] 396 [place], [place] 119085 Otolaryngology 11/12/22 Chely Fernandez PA-C [address] [place] [address] 632605 Assigned Surgical Provider 11/29/22 02/06/23 Jing Cadena APRN LEHR ATTENDANT [address] [place] [address] 450 [place], [place] 948755 Clinical Nurse Specialist Anesthesiology 01/15/23 Radha Lopez, [facility] [address] [place] [address] 896855 Pharmacist Pharmacist 01/16/23 Luis A Escobedo MD [address] [place] [address] 195 [place], [place] 224895 Assigned Surgical Provider 02/07/23 04/15/23 Geri Loza PA-C [address] [place] [address] 983315 Assigned Surgical Provider 04/16/23 Raina Patterson APRN SEO EXPERT [address] [facility] [address] [place], [place] 574125 Nurse Practitioner Cardiovascular Disease 05/11/23 documented as of this encounter
--- OUTSIDE RECORDS SUMMARY | 2024-01-11 23:12 | XMS_ITS | Encounter Summary ---
Author Organization [place] Address [address] [place] [address] Care Team Providers Care Web Offset Press Feeder Name Role Phone Roderick Morelos MD Unavailable [phone] Magno Wood MD Unavailable [phone] Sophie Ocasio Unavailable [phone] Henny Rosales AIR ANALYSIS ENGINEERING TECHNICIAN HAZARD MITIGATION OFFICER Unavailable [phone] Unavailable [phone] Kaykay Duarte FORMULA BOTTLER Primary Care Provider [phone] Christiane Rodríguez MD Unavailable [phone] Luis A Escobedo MD Unavailable [phone] Chely Fernandez-C Unavailable [phone] Jing Cadena APRN HEALTH PROMOTION EDUCATOR Unavailable Radha Lopez [facility] Unavailable [phone] Luis A Escobedo MD Unavailable [phone] Geri LozaC Unavailable [phone] Raina Patterson APRN HAZARD MITIGATION OFFICER Unavailable [phone] Encounter Details Date Type Department Care Team (Late st Contact Info) Description 11/03/2022 [facility] Weight Management [facility] [place] 064859 [facility] 4th [place] [address] Kang Griffiths Social History Tobacco [...] documented as of this encounter Care Teams Web Offset Press Feeder Relationship Specialty [place] [address] [place] [address] PCP - General 10/15/22 Roderick Morelos MD [address] [place] [address] Cardiovascular Disease 02/03/22 Magno Wood MD [address] [place] [address] 396 [place], [place] 205575 Otolaryngology 02/21/22 Sophie Ocasio, AuD [address] [place] [address] 637245 Drying Machine Back Tender Audiology 02/21/22 Henny Rosales APRN HAZARD MITIGATION OFFICER [address] [place] [address] Assigned Heart and Vascular Provider 08/09/[address] [place] [address] 248735 Registered Dietitian Dietitian, Registered 09/02/22 Christiane Rodríguez MD [address] [place] [address] 396 [place], [place] 607585 Otolaryngology 11/12/22 Luis A Escobedo MD [address] [place] [address] 487995 Assigned Surgical Provider 11/01/22 11/28/22 Chely Fernandez PA-C [address] [place] [address] 636095 Assigned Surgical Provider 11/29/22 02/06/23 Jing Cadena APRN HEALTH PROMOTION EDUCATOR [address] [place] [address] 450 [place], [place] 777055 Clinical Nurse Specialist Anesthesiology 01/15/23 Radha Lopez [facility] [address] [place] [address] 894155 Pharmacist Pharmacist 01/16/23 Luis A Escobedo MD [address] [place] [address] 195 [place], [place] 062485 Assigned Surgical Provider 02/07/23 04/15/23 Geri Loza PA-C 9 [place], [place] 446415 Assigned Surgical Provider 04/16/23 Raina Patterson APRN CNP [address] [place] [address] Nurse Practitioner Cardiovascular Disease 05/11/23 documented as of this encounter
--- OUTSIDE RECORDS SUMMARY | 2024-01-11 23:12 | XMS_ITS | Encounter Summary ---
Author Organization [place] Address [address] [place] [address] 93771 Care Team Providers Care Construction Grip Name Role Phone Roderick Morelos MD Unavailable Magno Wood MD Unavailable [phone] Sophie Ocasio AuD Unavailable Henny Rosales ENGINEERING TEST MECHANIC GAS BLENDER Unavailable Sharee Oliva RD Unavailable [phone] Kaykay Duarte NP Primary Care Provider Christiane Rodríguez MD Unavailable Jing Cadena ENGINEERING TEST MECHANIC SAMPLE COORDINATOR Unavailable Radha Lopez [facility] Unavailable Luis A Escobedo MD Unavailable [phone] Geri LozaC Unavailable [phone] Raina Patterson ENGINEERING TEST MECHANIC GAS BLENDER Unavailable [phone] Encounter Details Date Type Department Care Team (Late st Contact Info) Description 02/18/2023 [facility] [address] 5th [place] [address] Nikky Babb, RN Social History [...] documented as of this encounter Care Teams Construction Grip Relationship Specialty Start Date End Date Kaykay Duarte APPLIANCE INSTALLER [address] [place] [address] PCP - General 10/15/22 Roderick Morelos MD [address] [place] [address] Cardiovascular Disease 02/03/22 Magno Wood MD [address] [place] [address] [phone] Otolaryngology 02/21/22 Sophie Ocasio, Nick 909 [place], [place] 98881455 Ball Racker Audiology 02/21/22 Henny Rosales APRN GAS BLENDER [address] [place] [phone] Assigned Heart and Vascular Provider 08/09/[address] [place] [address] [phone] Registered Dietitian Dietitian, Registered 09/02/22 Christiane Rodríguez MD [address] [place] [address] 396 [place], [place] 929655 Otolaryngology 11/12/22 Jing Cadena APRN SAMPLE COORDINATOR [address] [place] [address] 450 [place], [place] 690375 Clinical Nurse Specialist Anesthesiology 01/15/23 Radha Lopez, [facility] [address] [place] [address] 259755 Pharmacist Pharmacist 01/16/23 Luis A Escobedo MD [address] [place] [address] 195 [place], [place] 105235 Assigned Surgical Provider 02/07/23 04/15/23 Geri Loza PA-C [address] [place] [address] 997765 Assigned Surgical Provider 04/16/23 Raina Patterson, GINA GAS BLENDER [address] [place] 392725 Nurse Practitioner Cardiovascular Disease 05/11/23 documented as of this encounter
--- OUTSIDE RECORDS SUMMARY | 2024-01-11 23:12 | XMS_ITS | Encounter Summary ---
Author Organization [place] Address [address] [place] [address] 37556 Care Team Providers Care Planning Coordinator Name Role Phone Roderick Morelos MD Unavailable [phone] Magno Wood MD Unavailable [phone] Sophie Ocasio AuD Unavailable Henny Rosales TAX COMPLIANCE AGENT TOOL GRINDER OPERATOR Unavailable Sharee Oliva RD Unavailable [phone] Kaykay Duarte BUTADIENE COMPRESSOR OPERATOR Primary Care Provider Christiane Rodríguez MD Unavailable Chely FernandezC Unavailable [phone] Jing Cadena TAX COMPLIANCE AGENT LOADING RACK SUPERVISOR Unavailable Radha Lopez [facility] Unavailable [phone] Luis A Escobedo MD Unavailable [phone] Geri LozaC Unavailable [phone] Raina Patterson TAX COMPLIANCE AGENT TOOL GRINDER OPERATOR Unavailable [phone] Encounter Details Date Type Department Care Team (Late st Contact Info) Description 01/21/2023 [facility] [address] [place] [address] Radha [place]inguez, RN 420 [facility] 195 [place] [address] Social History Tobacco Use Types [...] as of this encounter Care Teams Planning Coordinator Relationship Specialty [place] [address] [place] [address] PCP - General 10/15/22 Roderick Morelos MD [address] [place] [address] Cardiovascular Disease 02/03/22 Magno Wood MD 420 [facility] 396 [place], [place] 787135 Otolaryngology 02/21/22 Sophie Ocasio AuD 909 [place], [place] 503295 Public Policy Manager Audiology 02/21/22 Henny Rosales, TAX COMPLIANCE AGENT TOOL GRINDER OPERATOR [address] [place] [address] Assigned Heart and Vascular Provider 08/09/[address] [place] [address] 911605 Registered Dietitian Dietitian, Registered 09/02/22 Christiane Rodríguez MD [address] [place] [address] 396 [place], [place] 956425 Otolaryngology 11/12/22 Chely Fernandez PA-C [address] [place] [address] 512425 Assigned Surgical Provider 11/29/22 02/06/23 Jing Cadena APRN LOADING RACK SUPERVISOR [address] [place] [address] 450 [place] [address] Clinical Nurse Specialist Anesthesiology 01/15/23 Radha Lopez, [facility] [address] [place] [address] 901265 Pharmacist Pharmacist 01/16/23 Luis A Escobedo MD [address] [place] [address] 195 [place], [place] 127585 Assigned Surgical Provider 02/07/23 04/15/23 Geri Loza PA-C [address] [place] [address] 832855 Assigned Surgical Provider 04/16/23 Raina Patterson APRN [facility] [address] [facility] [address] [place] [address] Nurse Practitioner Cardiovascular Disease 05/11/23 documented as of this encounter
--- OUTSIDE RECORDS SUMMARY | 2024-01-11 23:12 | XMS_ITS | Encounter Summary ---
Author Organization [facility] Address [address] [place] [address] 20271 Care Team Providers Care Investment Executive Name Role Phone Roderick Morelos MD Unavailable [phone] Magno Wood MD Unavailable [phone] Sophie Ocasio Unavailable [phone] Henny Rosales THERMODYNAMICS TEACHER SKATING RINK MANAGER Unavailable [phone] Unavailable [phone] Kaykay Duarte FELLER HAND Primary Care Provider [phone] Christiane Rodríguez MD Unavailable Luis A Escobedo MD Unavailable [phone] Chely Fernandez-C Unavailable [phone] Jing Cadena APRN ART MUSEUM DOCENT Unavailable Radha Lopez [facility] Unavailable [phone] Luis A Escobedo MD Unavailable [phone] Geri LozaC Unavailable [phone] Raina Patterson APRN SKATING RINK MANAGER Unavailable [phone] Encounter Details Date Type Department Care Team (Late st Contact Info) Description 11/21/2022 MyC Medical Advice [facility] [place] 909 [facility] 4th [place] [phone] Geri Loza PA-C [address] [place] [address] 536375 Social History Tobacco Use Types Packs/Day Years [...] documented as of this encounter Care Teams Investment Executive Relationship Specialty Start Date End Date Kaykay Daurte FELLER [place] [address] [place] [address] PCP - General 10/15/22 Roderick Morelos MD [address] [place] 627195 Cardiovascular Disease 02/03/22 Magno Wood MD [address] [place] [facility] 396 [place], [place] 780495 Otolaryngology 02/21/22 Sophie Ocasio AuD 909 [place], [place] 612285 Physical Therapy Instructor Audiology 02/21/22 Henny Rosales APRN SKATING RINK MANAGER [address] [place] [address] Assigned Heart and Vascular Provider 08/09/[address] [place] [address] [phone] Registered Dietitian Dietitian, Registered 09/02/22 Christiane Rodríguez MD 420 [facility] 396 [place], [place] 181425 Otolaryngology 11/12/22 Luis A Escobedo MD 420 [facility] 195 [place] [address] Assigned Surgical Provider 11/01/22 11/28/22 Chely Fernandez PA-C [address] [place] [address] [phone] Assigned Surgical Provider 11/29/22 02/06/23 Jing Cadena THERMODYNAMICS TEACHER ART MUSEUM DOCENT 420 [facility] 450 [place], [place] 655785 Clinical Nurse Specialist Anesthesiology 01/15/23 Radha Lopez [facility] [address] [place] [address] 559015 Pharmacist Pharmacist 01/16/23 Luis A Escobedo MD 420 [facility] 195 [place] [address] Assigned Surgical Provider 02/07/23 04/15/23 Geri Loza PA-C 909 [place] [address] Assigned Surgical Provider 04/16/23 Raina Patterson APRN [facility] [address] [place], [place] 178015 Nurse Practitioner Cardiovascular Disease 05/11/23 documented as of this encounter
--- OUTSIDE RECORDS SUMMARY | 2024-01-11 23:12 | XMS_ITS | Encounter Summary ---
Author Organization [facility] Address [address] [place] [address] 57039 Care Team Providers Care Gender Studies Professor Name Role Phone Roderick Morelos MD Unavailable [phone] Magno Wood MD Unavailable [phone] Sophie Ocasio AuD Unavailable [phone] Henny Rosales SECURITY SPECIALIST BREAKER TABLE WORKER Unavailable Sharee Oliva RD Unavailable [phone] Kaykay Duarte PREANALYTICS TEAM LEAD Primary Care Provider Christiane Rodríguez MD Unavailable Chely FernandezC Unavailable [phone] Jing Cadena SECURITY SPECIALIST PRINTER SLOTTER OPERATOR Unavailable Radha Lopez [facility] Unavailable Luis A Escobedo MD Unavailable [phone] Geri LozaC Unavailable [phone] Raina Patterson SECURITY SPECIALIST BREAKER TABLE WORKER Unavailable [phone] Encounter Details Date Type Department Care Team (Late st Contact Info) Description 01/15/2023 [facility] [address] 4th [place] [phone] Geri Loza PA-C 909 [place], [place] 648975 Social History Tobacco Use Types Packs/Day Years [...] Lopez, PharmD, BCACP Medication Therapy Management Pharmacist [facility] * Telephone Encounter [...] documented as of this encounter Care Teams Gender Studies Professor Relationship Specialty [place] [address] [place] [address] PCP - General 10/15/22 Roderick Morelos MD [address] [place] [address] Cardiovascular Disease 02/03/22 Magno Wood MD [address] [place] [address] 584055 Otolaryngology 02/21/22 Sophie Ocasio AuD [address] [place] [address] 757915 Film Casting Operator Audiology 02/21/22 Henny Rosales APRN BREAKER TABLE WORKER [address] [place] [phone] Assigned Heart and Vascular Provider 08/09/[address] [place] [address] [phone] Registered Dietitian Dietitian, Registered 09/02/22 Christiane Rodríguez MD [address] [place] [address] 673905 Otolaryngology 11/12/22 Chely Fernandez PA-C [address] [place] [address] 26240 Assigned Surgical Provider 11/29/22 02/06/23 Jing Cadena APRN PRINTER SLOTTER OPERATOR 420 [facility] 450 [place], [place] 369785 Clinical Nurse Specialist Anesthesiology 01/15/23 Radha Lopez, [facility] 9 [place] [address] Pharmacist Pharmacist 01/16/23 Luis A Escobedo MD 420 [facility] 195 [place], [place] 959225 Assigned Surgical Provider 02/07/23 04/15/23 Geri Loza PA-C [address] [place] [address] 42680 Assigned Surgical Provider 04/16/23 Raina Patterson APRN BREAKER TABLE WORKER [address] [place] 462015 Nurse Practitioner Cardiovascular Disease 05/11/23 documented as of this encounter
--- OUTSIDE RECORDS SUMMARY | 2024-01-11 23:12 | XMS_ITS | Encounter Summary ---
Author Organization [place] Address [address] [place] [address] 68688 Care Team Providers Care Jewelry Bearing Maker Name Role Phone Roderick Morelos MD Unavailable [phone] Magno Wood MD Unavailable [phone] Sophie Ocasio AuD Unavailable [phone] Henny Rosales TRACK CAR OPERATOR JAVA CONSULTANT Unavailable Sharee Oliva [address] Unavailable [phone] Kaykay Duarte NP Primary Care Provider [phone] Christiane Rodríguez MD Unavailable [phone] Jing Cadena TRACK CAR OPERATOR MANAGER OF RADIOLOGY Unavailable [phone] Radha Lopez [facility] Unavailable Luis A Escobedo MD Unavailable [phone] Geri LozaC Unavailable [phone] Raina Patterson TRACK CAR OPERATOR JAVA CONSULTANT Unavailable [phone] Encounter Details Date Type Department Care Team (Late st Contact Info) Description 03/11/2023 MyC Medical Advice Initial Department [facility] [place] Social History Tobacco Use Types Packs/Day Years [...] documented as of this encounter Care Teams Jewelry Bearing Maker Relationship Specialty Start Date End Date Kaykay Duarte CARRIER WASHER [address] [place] [address] PCP - General 10/15/22 Roderick Morelos MD [address] [place] 718465 Cardiovascular Disease 02/03/22 Magno Wood MD [address] 811135 Otolaryngology 02/21/22 Sophie Ocasio AuD [address] [place] [address] 148565 Music Autographer Audiology 02/21/22 Henny Rosales APRN JAVA CONSULTANT [address] [place] [phone] Assigned Heart and Vascular Provider 08/09/[address] 909 [place] [address] Registered Dietitian Dietitian, Registered 09/02/22 Christiane Rodríguez MD 420 [facility] 396 [place] [address] Otolaryngology 11/12/22 Jing Cadena, TRACK CAR OPERATOR MANAGER OF RADIOLOGY 420 [facility] 450 [place], [place] 967515 Clinical Nurse Specialist Anesthesiology 01/15/23 Radha Lopez, [facility] 909 [place] [address] Pharmacist Pharmacist 01/16/23 Luis A Escobedo MD 420 [facility] 195 [place] [address] Assigned Surgical Provider 02/07/23 04/15/23 Geri Loza PA-C 9 [place] [address] Assigned Surgical Provider 04/16/23 Raina Patterson, GINA JAVA CONSULTANT [address] [facility] [address] [place] 504535 Nurse Practitioner Cardiovascular Disease 05/11/23 documented as of this encounter
--- OUTSIDE RECORDS SUMMARY | 2024-01-11 23:12 | XMS_ITS | Encounter Summary ---
Author Organization [place] Address [address] [place] [address] 53839 Care Team Providers Care Legal Billing Specialist Name Role Phone Roderick Morelos MD Unavailable [phone] Magno Wood MD Unavailable [phone] Sophie Ocasio AuD Unavailable [phone] Henny Rosales MANUFACTURING ENGINEER DISABILITY RATER Unavailable Sharee Oliva RD Unavailable [phone] Kaykay Duarte BAIT MAN Primary Care Provider [phone] Christiane Rodríguez MD Unavailable Chely FernandezC Unavailable [phone] Jing Cadena MANUFACTURING ENGINEER TILE PRESSER Unavailable Radha Lopez [facility] Unavailable Luis A Escobedo MD Unavailable [phone] Geri LozaC Unavailable [phone] Raina Patterson MANUFACTURING ENGINEER DISABILITY RATER Unavailable [phone] Encounter Details Date Type Department Care Team (Late st Contact Info) Description 01/26/2023 [facility] Medical [facility] [address] 4th [place] [phone] Henny Arguello RN Social History Tobacco Use [...] documented as of this encounter Care Teams Legal Billing Specialist Relationship Specialty Start Date End Date Kaykay Duarte, BAIT MAN [address] [place] [address] PCP - General 10/15/22 Roderick Morelos MD [address] [place] [address] Cardiovascular Disease 02/03/22 Magno Wood MD [address] [place] [address] 288815 Otolaryngology 02/21/22 Sophie Ocasio, Nick [address] [place] [address] 378385 Car Supplier Audiology 02/21/22 Henny Rosales, MANUFACTURING ENGINEER DISABILITY RATER [address] [place] [address] Assigned Heart and Vascular Provider 08/09/[address] [place] [address] 687945 Registered Dietitian Dietitian, Registered 09/02/22 Christiane Rodríguez MD [address] [place] [address] 396 [place], [place] 003265 Otolaryngology 11/12/22 Chely Fernandez PA-C [address] [place] [address] 498135 Assigned Surgical Provider 11/29/22 02/06/23 Jing Cadena APRN TILE PRESSER [address] [place] [address] 450 [place], [place] 790775 Clinical Nurse Specialist Anesthesiology 01/15/23 Radha Lopez, [facility] [address] [place] [address] 375655 Pharmacist Pharmacist 01/16/23 Luis A Escobedo MD [address] [place] [address] 195 [place], [place] 792425 Assigned Surgical Provider 02/07/23 04/15/23 Geri Loza PA-C [address] [place] [address] 958765 Assigned Surgical Provider 04/16/23 Raina Patterson APRN DISABILITY RATER [address] [facility] [address] [place], [place] 084755 Nurse Practitioner Cardiovascular Disease 05/11/23 documented as of this encounter
--- OUTSIDE RECORDS SUMMARY | 2024-01-11 23:12 | XMS_ITS | Encounter Summary ---
Author Organization [place] Address [address] [place] [address] 47149 Care Team Providers Care Manager Security And Safety Name Role Phone Roderick Morelos MD Unavailable [phone] Magno Wood MD Unavailable [phone] Sophie Ocasio AuD Unavailable [phone] Henny Rosales EXECUTIVE COMPENSATION ANALYST LOAD BUILDER Unavailable Sharee Oliva RD Unavailable [phone] Kaykay Duarte TOOTH CUTTER Primary Care Provider Christiane Rodríguez MD Unavailable Chely FernandezC Unavailable [phone] Jing Cadena EXECUTIVE COMPENSATION ANALYST CLINICAL TRAINER Unavailable Radha Lopez [facility] Unavailable Luis A Escobedo MD Unavailable [phone] Geri LozaC Unavailable [phone] Raina Patterson EXECUTIVE COMPENSATION ANALYST LOAD BUILDER Unavailable [phone] Encounter Details Date Type Department Care Team (Late st Contact Info) Description 01/14/2023 [facility] [address] 4th [place] [address] Radha Dominguez, RN 420 [facility] 195 [place] [address] Social History Tobacco Use Types [...] as of this encounter Care Teams Manager Security And Safety Relationship Specialty [place] [address] [place] [address] PCP - General 10/15/22 Roderick Morelos MD [address] [place] [address] Cardiovascular Disease 02/03/22 Magno Wood MD 420 [facility] 396 [place], [place] 050175 Otolaryngology 02/21/22 Sophie Ocasio AuD 909 [place], [place] 111675 Manager Transplant Audiology 02/21/22 Henny Rosales, EXECUTIVE COMPENSATION ANALYST LOAD BUILDER [address] [place] [address]2108 Assigned Heart and Vascular Provider 08/09/[address] [place] [address] [phone] Registered Dietitian Dietitian, Registered 09/02/22 Christiane Rodríguez MD [address] [place] [address] 396 [place], [place] 884485 Otolaryngology 11/12/22 Chely Fernandez PA-C [address] [place] [address] 689145 Assigned Surgical Provider 11/29/22 02/06/23 Jing Cadena APRN CLINICAL TRAINER [address] [place] [address] 450 [place] [address] Clinical Nurse Specialist Anesthesiology 01/15/23 Radha Lopez, [facility] [address] [place] [address] 777655 Pharmacist Pharmacist 01/16/23 Luis A Escobedo MD [address] [place] [address] 195 [place], [place] 621235 Assigned Surgical Provider 02/07/23 04/15/23 Geri Loza PA-C [address] [place] [address] 223075 Assigned Surgical Provider 04/16/23 Riana Patterson APRN [facility] [address] [facility] [address] [place] [address] Nurse Practitioner Cardiovascular Disease 05/11/23 documented as of this encounter
--- OUTSIDE RECORDS SUMMARY | 2024-01-11 23:12 | XMS_ITS | Encounter Summary ---
Author Organization [facility] Address [address] [place] [address] 38513 Care Team Providers Care Flush Tester Name Role Phone Roderick Morelos MD Unavailable [phone] Magno Wood MD Unavailable Sophie Ocasio Unavailable [phone] Henny Rosales GEAR ROLLER MATERIAL FLOW ANALYST Unavailable [phone] Unavailable [phone] Kaykay Duarte MACHINE TOOL DESIGNER Primary Care Provider [phone] Christiane Rodríguez MD Unavailable Luis A Escobedo MD Unavailable [phone] Chely Fernandez-C Unavailable [phone] Jing Cadena APRN CHEMISTRY DEPARTMENT CHAIR Unavailable Radha Lopez [facility] Unavailable [phone] Luis A Escobedo MD Unavailable [phone] Geri oLzaC Unavailable [phone] Raina Patterson APRN MATERIAL FLOW ANALYST Unavailable [phone] Encounter Details Date Type Department Care Team (Late st Contact Info) Description 11/07/[address] [facility] [place] 909 [facility] 4th [place] [address] Geri Loza PA-C [address] [place] [address] 524625 Social History Tobacco Use Types Packs/Day Years [...] documented as of this encounter Care Teams Flush Tester Relationship Specialty Start Date End Date Kaykay Duarte MACHINE TOOL DESIGNER [address] [place] [address] PCP - General 10/15/22 Roderick Morelos MD [address] [place] 515405 Cardiovascular Disease 02/03/22 Magno Wood MD [address] [facility] 396 [place], [place] 385565 Otolaryngology 02/21/22 Sophie Ocasio AuD 909 [place], [place] 459895 Licensed Massage Therapist Audiology 02/21/22 Henny Rosales APRN MATERIAL FLOW ANALYST [address] [place] [address] Assigned Heart and Vascular Provider 08/09/[address] [place] [address] 141545 Registered Dietitian Dietitian, Registered 09/02/22 Christiane Rodríguez MD 420 [facility] 396 [place], [place] 890405 Otolaryngology 11/12/22 Luis A Escobedo MD 420 [facility] 195 [place] [address] Assigned Surgical Provider 11/01/22 11/28/22 Chely Fernandez PA-C [address] [place] [address] 921115 Assigned Surgical Provider 11/29/22 02/06/23 Jing Cadena GEAR ROLLER CHEMISTRY DEPARTMENT CHAIR 420 [facility] 450 [place], [place] 209365 Clinical Nurse Specialist Anesthesiology 01/15/23 Radha Lopez [facility] [address] [place] [address] 634165 Pharmacist Pharmacist 01/16/23 Luis A Escobedo MD 420 [facility] 195 [place] [address] Assigned Surgical Provider 02/07/23 04/15/23 eGri Loza PA-C 909 [place] [address] Assigned Surgical Provider 04/16/23 Raina Patterson APRN [facility] [address] [place], [place] 765815 Nurse Practitioner Cardiovascular Disease 05/11/23 documented as of this encounter
--- OUTSIDE RECORDS SUMMARY | 2024-01-11 23:12 | XMS_ITS | Encounter Summary ---
Author Organization [place] Address [address] [place] [address] 17271 Care Team Providers Care Organic Preparation Technician Name Role Phone Roderick Morelos MD Unavailable [phone] Magno Wood MD Unavailable [phone] Sophie Ocasio AuD Unavailable [phone] Henny Rosales HOOP DRIVING MACHINE OPERATOR HELPER FOOD ASSEMBLER KITCHEN Unavailable [phone] Unavailable [phone] Kaykay Duarte AIR POLLUTION CONTROL ENGINEER Primary Care Provider Christiane Rodríguez MD Unavailable [phone] Chely FernandezC Unavailable [phone] Jing Cadena HOOP DRIVING MACHINE OPERATOR HELPER GATHERING WORKER Unavailable Radha Lopez [facility] Unavailable Lusi A Escobedo MD Unavailable [phone] Geri LozaC Unavailable Raina Patterson HOOP DRIVING MACHINE OPERATOR HELPER FOOD ASSEMBLER KITCHEN Unavailable [phone] Encounter Details Date Type Department Care Team [...] documented as of this encounter Care Teams Organic Preparation Technician Relationship Specialty Start Date End Date Kaykay Duarte AIR POLLUTION CONTROL ENGINEER [address] [place] [address] PCP - General 10/15/22 Roderick Morelos MD [address] [place] [address] Cardiovascular Disease 02/03/22 Magno Wood MD 420 [facility] 396 [place], [place] 944785 Otolaryngology 02/21/22 Sophie Ocasio, Nick 909 [place], [place] 287305 Biosolids Management Technician Audiology 02/21/22 Henny Rosales APRN FOOD ASSEMBLER KITCHEN [address] [place] [address]539[address]108 Assigned Heart and Vascular Provider 08/09/[address] 909 [place], [place] 616885 Registered Dietitian Dietitian, Registered 09/02/22 Christiane Rodríguez MD 420 [facility] 396 [place], [place] 220645 Otolaryngology 11/12/22 Chely Fernandez PA-C [address] [place] [address] 129305 Assigned Surgical Provider 11/29/22 02/06/23 Jing Cadena APRN GATHERING WORKER 420 [facility] 450 [place], [place] 697965 Clinical Nurse Specialist Anesthesiology 01/15/23 JessicaRadha, [facility] [address] [place] [address] 440005 Pharmacist Pharmacist 01/16/23 Luis A Escobedo MD [address] [place] [address] 195 [place], [place] 644225 Assigned Surgical Provider 02/07/23 04/15/23 Geri Loza PA-C [address] [place] [address] 367065 Assigned Surgical Provider 04/16/23 Raina Patterson APRN FOOD ASSEMBLER KITCHEN [address] [place] 032035 Nurse Practitioner Cardiovascular Disease 05/11/23 documented as of this encounter
--- OUTSIDE RECORDS SUMMARY | 2024-01-11 23:12 | XMS_ITS | Encounter Summary ---
Author Organization [place] Address [address] [place] [address] 43209 Care Team Providers Care Court Monitor Name Role Phone Roderick Morelos MD Unavailable [phone] Magon Wood MD Unavailable [phone] Sophie Ocasio AuD Unavailable Henny Rosales PROFILE MILL OPERATOR TAPE CONTROL SUPPLY CHAIN VICE PRESIDENT Unavailable [phone] Unavailable [phone] Kaykay Duarte PRESS FEEDER BROOMCORN Primary Care Provider Christiane Rodríguez MD Unavailable [phone] Cheyl FernandezC Unavailable [phone] Jing Cadena PROFILE MILL OPERATOR TAPE CONTROL [facility] Unavailable Radha Lopez [facility] Unavailable Luis A Escobedo MD Unavailable [phone] Geri LozaC Unavailable [phone] Raina Patterson PROFILE MILL OPERATOR TAPE CONTROL SUPPLY CHAIN VICE PRESIDENT Unavailable [phone] Encounter Details Date Type Department Care Team (Late st Contact Info) Description 01/09/2023 [facility] [address] [place] [address] Radha Dominguez, RN 420 [facility] 195 [place] [address] Social History Tobacco Use Types [...] documented as of this encounter Care Teams Court Monitor Relationship Specialty [place] [address] [place] [address] PCP - General 10/15/22 Roderick Morelos MD [address] [place] [address] Cardiovascular Disease 02/03/22 Magno Wood MD 420 [facility] 396 [place], [place] 134595 Otolaryngology 02/21/22 Sophie Ocasio AuD 909 [place], [place] 770825 Director Writing Audiology 02/21/22 Henny Rosales, PROFILE MILL OPERATOR TAPE CONTROL SUPPLY CHAIN VICE PRESIDENT [address] [place] [address]84[address] Assigned Heart and Vascular Provider 08/09/[address] [place] [address] [phone] Registered Dietitian Dietitian, Registered 09/02/22 Christiane Rodríguez MD [address] [place] [address] 396 [place], [place] 764235 Otolaryngology 11/12/22 Chely Fernandez PA-C [address] [place] [place] [address] 557245 Assigned Surgical Provider 11/29/22 02/06/23 Jing Cadena APRN [facility] [address] [place] [address] 450 [place] [address] Clinical Nurse Specialist Anesthesiology 01/15/23 Radha Lopez, [facility] [address] [place] [place] [address] [phone] Pharmacist Pharmacist 01/16/23 Luis A Escobedo MD [address] [place] [address] 195 [place], [place] 323975 Assigned Surgical Provider 02/07/23 04/15/23 Geri Loza PA-C [address] [place] [address] 948465 Assigned Surgical Provider 04/16/23 Raina Patterson APRN [facility] [address] [facility] [address] [place] [address] Nurse Practitioner Cardiovascular Disease 05/11/23 documented as of this encounter
--- OUTSIDE RECORDS SUMMARY | 2024-01-11 23:12 | XMS_ITS | Encounter Summary ---
Author Organization [place] Address [address] [place] [address] 20130 Care Team Providers Care Tax Specialist Name Role Phone Roderick Morelos MD Unavailable [phone] Magno Wood MD Unavailable Sophie Ocasio AuD Unavailable [phone] Henny Rosales PREPRESS SUPERVISOR BROACH SETTER Unavailable Sharee Oliva [address] Unavailable [phone] Kaykay Duarte RN TELE Primary Care Provider [phone] Christiane Rodríguez MD Unavailable Chely FernandezC Unavailable [phone] Jing Cadena PREPRESS SUPERVISOR FILTER OPERATOR Unavailable Radha Lopez [facility] Unavailable Luis A Escobedo MD Unavailable [phone] Geri LozaC Unavailable [phone] Raina Patterson PREPRESS SUPERVISOR BROACH SETTER Unavailable [phone] Encounter Details Date Type Department Care Team (Late st Contact Info) Description 02/06/2023 [facility] [address] [place] [phone] Daniela [place] Social History Tobacco Use Types [...] as of this encounter Care Teams Tax Specialist Relationship Specialty [place] [address] [place] [address] PCP - General 10/15/22 Roderick Morelos MD [address] [place] [address] Cardiovascular Disease 02/03/22 Magno Wood MD [address] [place] [address] 389885 Otolaryngology 02/21/22 Sophie Ocasio AuD [address] [place] [address] 389975 Ironer Machine Audiology 02/21/22 Henny Rosales APRN BROACH SETTER [address] [place] [phone] Assigned Heart and Vascular Provider 08/09/[address] [place] [address] 964385 Registered Dietitian Dietitian, Registered 09/02/22 Christiane Rodríguez MD [address] [place] [address] 396 [place], [place] 569385 Otolaryngology 11/12/22 Chely Fernandez PA-C [address] [place] [address] 760465 Assigned Surgical Provider 11/29/22 02/06/23 Jing Cadena APRN FILTER OPERATOR [address] [place] [address] 450 [place], [place] 867895 Clinical Nurse Specialist Anesthesiology 01/15/23 Radha Lopez, [facility] [address] [place] [address] 095615 Pharmacist Pharmacist 01/16/23 Luis A Escobedo MD [address] [place] [address] 195 [place], [place] 892175 Assigned Surgical Provider 02/07/23 04/15/23 Geri Loza PA-C [address] [place] [address] 253985 Assigned Surgical Provider 04/16/23 Raina Patterson APRN BROACH SETTER [address] [facility] [address] [place], [place] 347605 Nurse Practitioner Cardiovascular Disease 05/11/23 documented as of this encounter
--- OUTSIDE RECORDS SUMMARY | 2024-01-11 23:12 | XMS_ITS | Encounter Summary ---
Author Organization [place] Address [address] [place] [address] 91908 Care Team Providers Care Industrial Garage Servicer Name Role Phone Roderick Morelos MD Unavailable [phone] Magno Wood MD Unavailable [phone] Sophie Ocasio AuD Unavailable Henny Rosales [employer] EXECUTIVE DIRECTOR PHARMACY CUSTOMER CARE SPECIALIST Unavailable [phone] Unavailable [phone] Kaykay Duarte MECHANICAL TECHNICIAN Primary Care Provider [phone] Christiane Rodríguez MD Unavailable Chely FernandezC Unavailable [phone] Jing Cadena [employer] EXECUTIVE DIRECTOR SUPERVISOR REFRACTORY PRODUCTS Unavailable Radha Lopez [facility] Unavailable Luis A Escobedo MD Unavailable [phone] Geri LozaC Unavailable [phone] Raina Patterson [employer] EXECUTIVE DIRECTOR PHARMACY CUSTOMER CARE SPECIALIST Unavailable [phone] Encounter Details Date Type Department Care Team (Late st Contact Info) Description 01/14/2023 [facility] [address] [place] [address] Radha Dominguez, RN 420 [facility] 195 [place] [address] Social History Tobacco Use Types [...] as of this encounter Care Teams Industrial Garage Servicer Relationship Specialty [place] [address] [place] [address] PCP - General 10/15/22 Roderick Morelos MD [address] [place] [address] Cardiovascular Disease 02/03/22 Magno Wood MD 420 [facility] 396 [place], [place] 411315 Otolaryngology 02/21/22 Sophie Ocasio AuD 909 [place], [place] 082835 Mobile Designer Audiology 02/21/22 Henny Rosales, [employer] EXECUTIVE DIRECTOR PHARMACY CUSTOMER CARE SPECIALIST [address] [place] [address] Assigned Heart and Vascular Provider 08/09/[address] [place] [address] 339285 Registered Dietitian Dietitian, Registered 09/02/22 Christiane Rodríguez MD [address] [place] [address] 396 [place], [place] 784125 Otolaryngology 11/12/22 Chely Fernandez PA-C [address] [place] [address] 958185 Assigned Surgical Provider 11/29/22 02/06/23 Jing Cadena APRN SUPERVISOR REFRACTORY PRODUCTS [address] [place] [address] 450 [place] [address] Clinical Nurse Specialist Anesthesiology 01/15/23 Radha Lopez, [facility] [address] [place] [address] 191785 Pharmacist Pharmacist 01/16/23 Luis A Escobedo MD [address] [place] [address] 195 [place], [place] 048195 Assigned Surgical Provider 02/07/23 04/15/23 Geri Loza PA-C [address] [place] [address] 144465 Assigned Surgical Provider 04/16/23 Raina Patterson APRN [facility] [address] [facility] [address] [place] [address] Nurse Practitioner Cardiovascular Disease 05/11/23 documented as of this encounter
--- OUTSIDE RECORDS SUMMARY | 2024-01-11 23:12 | XMS_ITS | Encounter Summary ---
Author Organization [place] Address [address] [place] [address] 38326 Care Team Providers Care Aquatics Lifeguard Name Role Phone Roderick Morelos MD Unavailable [phone] Magno Wood MD Unavailable [phone] Sophie Ocasio AuD Unavailable Henny Rosales PERSONNEL INTERVIEWER SEMICONDUCTOR WAFERS MARKER Unavailable Sharee Oliva [address] Unavailable [phone] Kaykay Duarte NP Primary Care Provider [phone] Christiane Rodríguez MD Unavailable Jing Cadena PERSONNEL INTERVIEWER QC TECH Unavailable Radha Lopez [facility] Unavailable Luis A Escobedo MD Unavailable [phone] Geri LozaC Unavailable [phone] Raina Patterson PERSONNEL INTERVIEWER SEMICONDUCTOR WAFERS MARKER Unavailable [phone] Encounter Details Date Type Department Care Team (Late st Contact Info) Description 02/17/2023 [facility] [place] [facility] [address] 4th [place] [address] [place], Henny, RN Social History [...] documented as of this encounter Care Teams Aquatics Lifeguard Relationship Specialty [place] [address] [place] [address] PCP - General 10/15/22 Roderick Morelos MD [address] [place] 282875 Cardiovascular Disease 02/03/22 Magno Wood MD 420 [facility] 396 [place], [place] 998855 Otolaryngology 02/21/22 Sophie Ocasio AuD [address] [place], [place] 188015 Photographic Hand Developer Audiology 02/21/22 Henny Rosales APRN SEMICONDUCTOR WAFERS MARKER [address] [place] [phone] Assigned Heart and Vascular Provider 08/09/[address]09 [place], [place] 882595 Registered Dietitian Dietitian, Registered 09/02/22 Christiane Rodríguez MD 420 [facility] 396 [place], [place] 492875 Otolaryngology 11/12/22 Jing Cadena APRN QC TECH 420 [facility] 450 [place] [address] Clinical Nurse Specialist Anesthesiology 01/15/23 Radha Lopez [facility] [address] [place] [address] [phone] Pharmacist Pharmacist 01/16/23 Luis A Escobedo MD 420 [facility] 195 [place], [place] 272055 Assigned Surgical Provider 02/07/23 04/15/23 Geri Loza PA-C 9 [place], [place] 347305 Assigned Surgical Provider 04/16/23 Raina Patterson, GINA SEMICONDUCTOR WAFERS MARKER [address] [place] [address] [place] 725365 Nurse Practitioner Cardiovascular Disease 05/11/23 documented as of this encounter
--- OUTSIDE RECORDS SUMMARY | 2024-01-11 23:12 | XMS_ITS | Encounter Summary ---
Author Organization [place] Address [address] [place] [address] 33880 Care Team Providers Care Project Archivist Name Role Phone Roderick Morelos MD Unavailable [phone] Magno Wood MD Unavailable [phone] Sophie Ocasio AuD Unavailable Henny Rosales GUTTER MOUTH CUTTER VISUAL COMMUNICATIONS INSTRUCTOR Unavailable Sharee Oliva RD Unavailable [phone] Kaykay Duarte EARLY INTERVENTIONIST Primary Care Provider Christiane Rodríguez MD Unavailable [phone] Chely FernandezC Unavailable [phone] Jing Cadena GUTTER MOUTH CUTTER PSYCH SPECIALIST Unavailable Radha Lopez [facility] Unavailable Luis A Escobedo MD Unavailable [phone] Geri LozaC Unavailable Raina Patterson GUTTER MOUTH CUTTER VISUAL COMMUNICATIONS INSTRUCTOR Unavailable [phone] Encounter Details Date Type Department Care Team [...] documented as of this encounter Care Teams Project Archivist Relationship Specialty Start Date End Date Kaykay Duarte EARLY INTERVENTIONIST [address] [place] [address] PCP - General 10/15/22 Roderick Morelos MD [address] [place] [address] Cardiovascular Disease 02/03/22 Magno Wood MD 420 [facility] 396 [place], [place] 866495 Otolaryngology 02/21/22 Sophie Ocasio, Nick 909 [place], [place] 420755 Clean Out Driller Audiology 02/21/22 Henny Rosales APRN VISUAL COMMUNICATIONS INSTRUCTOR [address] [place] [address]46772108 Assigned Heart and Vascular Provider 08/09/[address]09 [place], [place] 233575 Registered Dietitian Dietitian, Registered 09/02/22 Christiane Rodríguez MD 420 [facility] 396 [place], [place] 630455 Otolaryngology 11/12/22 Chely Fernandez PA-C [address] [place] [address] 729865 Assigned Surgical Provider 11/29/22 02/06/23 Jing Cadena APRN PSYCH SPECIALIST 420 [facility] 450 [place], [place] 655845 Clinical Nurse Specialist Anesthesiology 01/15/23 JessicaRadha, [facility] [address] [place] [address] 173835 Pharmacist Pharmacist 01/16/23 Luis A Escobedo MD [address] [place] [address] 195 [place], [place] 626095 Assigned Surgical Provider 02/07/23 04/15/23 Geri Loza PA-C [address] [place] [address] 472715 Assigned Surgical Provider 04/16/23 Raina Patterson APRN VISUAL COMMUNICATIONS INSTRUCTOR [address] [place] [address] [place] 341245 Nurse Practitioner Cardiovascular Disease 05/11/23 documented as of this encounter
--- OUTSIDE RECORDS SUMMARY | 2024-01-11 23:12 | XMS_ITS | Encounter Summary ---
Author Organization [place] Address [address] [place] [address] 93879 Care Team Providers Care Government Property Inspector Name Role Phone Roderick Morelos MD Unavailable [phone] Magno Wood MD Unavailable [phone] Sophie Ocasio AuD Unavailable Henny Rosales REHABILITATION THERAPIST AIR CONDITIONING INSTALLER SUPERVISOR Unavailable [phone] Unavailable [phone] Kaykay Duarte NP Primary Care Provider Christiane Rodríguez MD Unavailable Jing Cadena REHABILITATION THERAPIST SENIOR ADVOCATE Unavailable Radha Lopez [facility] Unavailable [phone] Luis A Escobedo MD Unavailable [phone] Geri LozaC Unavailable [phone] Raina Patterson REHABILITATION THERAPIST AIR CONDITIONING INSTALLER SUPERVISOR Unavailable [phone] Encounter Details Date Type Department Care Team (Late st Contact Info) Description 02/17/2023 [facility] [address] 4th [place] [address] [place], Henny, RN Social History [...] documented as of this encounter Care Teams Government Property Inspector Relationship Specialty [place] [address] [place] [address] PCP - General 10/15/22 Roderick Morelos MD [address] [place] 279105 Cardiovascular Disease 02/03/22 Magno Wood MD 420 [facility] 396 [place], [place] 302355 Otolaryngology 02/21/22 Sophie Ocasio AuD 909 [place], [place] 601305 Supervisor Varnish Audiology 02/21/22 Henny Rosales APRN AIR CONDITIONING INSTALLER SUPERVISOR [address] [place] [address] Assigned Heart and Vascular Provider 08/09/[address]09 [place], [place] 097105 Registered Dietitian Dietitian, Registered 09/02/22 Christiane Rodríguez MD 420 [facility] 396 [place], [place] 252075 Otolaryngology 11/12/22 Jing Cadena APRN SENIOR ADVOCATE 420 [facility] 450 [place] [address] Clinical Nurse Specialist Anesthesiology 01/15/23 Radha Lopez [facility] [address] [place] [address] 358055 Pharmacist Pharmacist 01/16/23 Luis A Escobedo MD 420 [facility] 195 [place], [place] 817085 Assigned Surgical Provider 02/07/23 04/15/23 Geri Loza PA-C 9 [place], [place] 607275 Assigned Surgical Provider 04/16/23 Raina Patterson, GINA AIR CONDITIONING INSTALLER SUPERVISOR [address] [place] [address] [place] 858005 Nurse Practitioner Cardiovascular Disease 05/11/23 documented as of this encounter
--- OUTSIDE RECORDS SUMMARY | 2024-01-11 23:12 | XMS_ITS | Encounter Summary ---
Author Organization [place] Address [address] [place] [address] 41802 Care Team Providers Care Food Cooking Machine Operator Name Role Phone Roderick Morelos MD Unavailable [phone] Magno Wood MD Unavailable [phone] Sophie Ocasio AuD Unavailable Henny Rosales CLINICAL QUALITY ASSURANCE SPECIALIST ROLLER STITCHER Unavailable Sharee Oliva RD Unavailable [phone] Kaykay Duarte RANGE AIDE Primary Care Provider Christiane Rodríguez MD Unavailable Chely FernandezC Unavailable [phone] Jing Cadena CLINICAL QUALITY ASSURANCE SPECIALIST ENERGY CROP FARMER Unavailable Radha Lopez [facility] Unavailable Luis A Escobedo MD Unavailable [phone] Geri LozaC Unavailable Raina Patterson CLINICAL QUALITY ASSURANCE SPECIALIST ROLLER STITCHER Unavailable [phone] Encounter Details Date Type Department Care Team (Late st Contact Info) Description 01/26/2023 [facility] Management [facility] [address] [place] [address] Geri Loza PA-C 909 [place], [place] 110545 Social History Tobacco Use Types Packs/Day Years [...] 01/26/2023 at 9:59 AM by Tamera Bhardwaj ENGER COACH DRIVER documented in this encounter Plan of [...] as of this encounter Care Teams Food Cooking Machine Operator Relationship Specialty Start Date End Date Kaykay Duarte, RANGE AIDE [address] [place] [address] PCP - General 10/15/22 Roderick Morelos MD [address] [place] [address] Cardiovascular Disease 02/03/22 Magno Wood MD [address] [place] [address] 37633 Otolaryngology 02/21/22 Sophie Ocasio AuD [address] [place] [address] 372705 Pcat Instructor Audiology 02/21/22 Henny Rosales APRN ROLLER STITCHER [address] [facility] [address] [place] [address] Assigned Heart and Vascular Provider 08/09/[address] [place] [address] 417895 Registered Dietitian Dietitian, Registered 09/02/22 Christiane Rodríguez MD [address] [place] [address] 898515 Otolaryngology 11/12/22 Chely Fernandez PA-C [address] [place] [address] 294945 Assigned Surgical Provider 11/29/22 02/06/23 Jing Cadena APRN ENERGY CROP FARMER [address] [place] [address] 124325 Clinical Nurse Specialist Anesthesiology 01/15/23 Radha Lopez, [facility] [address] [place] [address] 90093 Pharmacist Pharmacist 01/16/23 Luis A Escobedo MD [address] [place] [address] 20476 Assigned Surgical Provider 02/07/23 04/15/23 Geri Loza PA-C [address] [place] [address] 23323 Assigned Surgical Provider 04/16/23 Raina Patterson APRN ROLLER STITCHER [address] [place] [address] Nurse Practitioner Cardiovascular Disease 05/11/23 documented as of this encounter
--- OUTSIDE RECORDS SUMMARY | 2024-01-11 23:12 | XMS_ITS | Encounter Summary ---
Author Organization [place] Address [address] [place] [address] 47626 Care Team Providers Care Regulatory Consultant Name Role Phone Roderick Morelos MD Unavailable [phone] Magno Wood MD Unavailable [phone] Sophie Ocasio AuD Unavailable [phone] Henny Rosales OUTCOMES ANALYST ELECTRONIC GLUING MACHINE OPERATOR Unavailable Sharee Oliva [address] Unavailable [phone] Kaykay Duarte MESH CUTTER Primary Care Provider Christiane Rodríguez MD Unavailable Chely FernandezC Unavailable [phone] Jing Cadena OUTCOMES ANALYST MOBILE PHLEBOTOMIST Unavailable Radha Lopez [facility] Unavailable Luis A Escobedo MD Unavailable [phone] Geri LozaC Unavailable [phone] Raina Patterson OUTCOMES ANALYST ELECTRONIC GLUING MACHINE OPERATOR Unavailable [phone] Reason for Visit * Reason Onset Date Comments Call Back 01/15/2023 See note. Encounter Details Date Type Department Care Team (Late st Contact Info) Description 01/15/2023 [facility] Surgery [place] 706569 [facility] [address] 4th [place] [address] Luis A Escobedo MD 420 [facility] 195 [place], [place] 823865 Call Back (See note./) Social History Tobacco [...] or updates. Please contact Daisy Huynh, clinical psychology professor, if clinic appt slots are not available. Henny, The patient has been informed that you will contact them about the preop class. Thank you! Summer, RN Radha Dominguez, MS, top polisher Weight Management Nurse Coordinator MyChart messages to Surgery Clinic Wls Nurses - Contact Center Nurse Line and Clinic [phone] documented in this encounter Plan of Treatment [...] documented as of this encounter Care Teams Regulatory Consultant Relationship Specialty Start Date End Date Kaykay Duarte, MESH CUTTER [address] [place] 637657 PCP - General 10/15/22 Roderick Morelos MD [address] [place] 359305 Cardiovascular Disease 02/03/22 Magno Wood MD [address] [place] [address] 882015 Otolaryngology 02/21/22 Sophie Ocasio AuD [address] [place] [address] 138165 Director Career Audiology 02/21/22 Henny Rosales, OUTCOMES ANALYST ELECTRONIC GLUING MACHINE OPERATOR [address] [place] [address] Assigned Heart and Vascular Provider 08/09/[address] [place] [address] 335115 Registered Dietitian Dietitian, Registered 09/02/22 Christiane Rodríguez MD 420 [facility] 396 [place], [place] 083115 Otolaryngology 11/12/22 Chely Fernandez PA-C 909 [place], [place] 567265 Assigned Surgical Provider 11/29/22 02/06/23 Jing Cadena, OUTCOMES ANALYST MOBILE PHLEBOTOMIST 420 [facility] 450 [place], [place] 629895 Clinical Nurse Specialist Anesthesiology 01/15/23 Radha Lopez, [facility] 909 [place], [place] 531435 Pharmacist Pharmacist 01/16/23 Luis A Escobedo MD 420 [facility] 195 [place], [place] 922925 Assigned Surgical Provider 02/07/23 04/15/23 Geri Loza PA-C 909 [place], [place] 921785 Assigned Surgical Provider 04/16/23 Raina Patterson, GINA ELECTRONIC GLUING MACHINE OPERATOR [address] [place] 584575 Nurse Practitioner Cardiovascular Disease 05/11/23 documented as of this encounter
--- OUTSIDE RECORDS SUMMARY | 2024-01-11 23:12 | XMS_ITS | Encounter Summary ---
Author Organization [place] Address [address] [place] [address] 09359 Care Team Providers Care Healthcare Network Consultant Name Role Phone Roderick Morelos MD Unavailable [phone] Magno Wood MD Unavailable [phone] Sophie Ocasio AuD Unavailable Henny Rosales COMPLAINT INVESTIGATIONS OFFICER DENTAL SPECIALIST Unavailable Sharee Oliva [address] Unavailable [phone] Kaykay Duarte OFFAL ICER POULTRY Primary Care Provider Christiane Rodríguez MD Unavailable [phone] Chely FernandezC Unavailable [phone] Jing Cadena COMPLAINT INVESTIGATIONS OFFICER HUMAN RESOURCES DEPARTMENT SUPERVISOR Unavailable Radha Lopez [facility] Unavailable [phone] Luis A Escobedo MD Unavailable [phone] Geri LozaC Unavailable [phone] Raina Patterson COMPLAINT INVESTIGATIONS OFFICER DENTAL SPECIALIST Unavailable [phone] Encounter Details Date Type Department Care Team (Late st Contact Info) Description 01/09/2023 [facility] [place] [facility] Weight Management [facility] [address] [place] [address] Radha Dominguez, RN 420 [facility] 195 [place] [address] Social History Tobacco Use Types [...] documented as of this encounter Care Teams Healthcare Network Consultant Relationship Specialty [place] [address] [place] [address] PCP - General 10/15/22 Roderick Morelos MD [address] [place] [address] Cardiovascular Disease 02/03/22 Magno Wood MD 420 [facility] 396 [place], [place] 388755 Otolaryngology 02/21/22 Sophie Ocasio AuD 909 [place], [place] 764065 Bow Maker Audiology 02/21/22 Henny Rosales, COMPLAINT INVESTIGATIONS OFFICER DENTAL SPECIALIST [address] [place] [address] Assigned Heart and Vascular Provider 08/09/[address] [place] [address] 428995 Registered Dietitian Dietitian, Registered 09/02/22 Christiane Rodríguez MD [address] [place] [address] 396 [place], [place] 553935 Otolaryngology 11/12/22 Chely Fernandez PA-C [address] [place] [address] 493335 Assigned Surgical Provider 11/29/22 02/06/23 Jing Cadena APRN HUMAN RESOURCES DEPARTMENT SUPERVISOR [address] [place] [address] 450 [place] [address] Clinical Nurse Specialist Anesthesiology 01/15/23 Radha Lopez, [facility] [address] [place] [address] 239285 Pharmacist Pharmacist 01/16/23 Luis A Escobedo MD [address] [place] [address] 195 [place], [place] 980695 Assigned Surgical Provider 02/07/23 04/15/23 Geri Loza PA-C [address] [place] [address] 001095 Assigned Surgical Provider 04/16/23 Raina Patterson APRN [facility] [address] [facility] [address] [place] [address] Nurse Practitioner Cardiovascular Disease 05/11/23 documented as of this encounter
--- OUTSIDE RECORDS SUMMARY | 2024-01-11 23:12 | XMS_ITS | Encounter Summary ---
Author Organization [facility] Address [address] [place] [address]157 Care Team Providers Care Truck Terminal Manager Name Role Phone Roderick Morelos MD Unavailable [phone] Magno Wood MD Unavailable [phone] Sophie Ocasio AuD Unavailable [phone] Henny Rosales STEEPLECHASE JOCKEY WIRE WEB WORKER Unavailable Sharee Oliva RD Unavailable [phone] Kaykay Duarte OFFSET PLATE MAKER Primary Care Provider [phone] Christiane Rodríguez MD Unavailable Chely FernandezC Unavailable +[phone] Jing Cadena STEEPLECHASE JOCKEY REALTIME REPORTER Unavailable [phone] Radha Lopez [facility] Unavailable +[phone] Luis A Escobedo MD Unavailable [phone] Geri LozaC Unavailable Raina Patterson STEEPLECHASE JOCKEY WIRE WEB WORKER Unavailable +[phone] Encounter Details Date Type Department Care Team (Late st Contact Info) Description 12/04/2022 [facility] [address] [place] [address] Kang Griffiths Social History Tobacco [...] documented as of this encounter Care Teams Truck Terminal Manager Relationship Specialty [place] [address] [facility] [address] PCP - General 10/15/22 Roderick Morelos MD [address] [place] [address] Cardiovascular Disease 02/03/22 Magno Wood MD 420 [facility] 396 [place], [place] 021865 Otolaryngology 02/21/22 Sophie Ocasio AuD 909 [place], [place] 939695 Bobbin Washer Audiology 02/21/22 Henny Rosales, STEEPLECHASE JOCKEY WIRE WEB WORKER [address] [place] [address] Assigned Heart and Vascular Provider 08/09/[address] [place] [address] 118325 Registered Dietitian Dietitian, Registered 09/02/22 Christiane Rodríguez MD 420 [facility] 396 [place], [place] 636215 Otolaryngology 11/12/22 Chely Fernandez PA-C [address] [place] [address] 862965 Assigned Surgical Provider 11/29/22 02/06/23 Jing Cadena STEEPLECHASE JOCKEY REALTIME REPORTER [address] [place] [address] 450 [place] [address] Clinical Nurse Specialist Anesthesiology 01/15/23 Radha Lopez, [facility] [address] [place] [address] 008655 Pharmacist Pharmacist 01/16/23 Luis A Escobedo MD 420 [facility] 195 [place], [place] 735845 Assigned Surgical Provider 02/07/23 04/15/23 Geri Loza PA-C [address] [place] [address] 086075 Assigned Surgical Provider 04/16/23 Raina Patterson, STEEPLECHASE JOCKEY WIRE WEB WORKER [address] [facility] [address] [place] 245825 Nurse Practitioner Cardiovascular Disease 05/11/23 documented as of this encounter
--- OUTSIDE RECORDS SUMMARY | 2024-01-11 23:13 | XMS_ITS | Encounter Summary ---
Author Organization [facility] Address [address] [place] [address] Care Team Providers Care Reed Polisher Name Role Phone Roderick Morelos MD Unavailable [phone] Magno Wood MD Unavailable [phone] Sophie Ocasio Unavailable [phone] Henny Rosales VENDING MACHINE HOST/HOSTESS DIGITAL PRESS OPERATOR Unavailable [phone] [facility], [facility] Primary Care Pr ovider Sharee Oliva RD Unavailable [phone] Kaykay Duarte LAMINATING MACHINE OPERATOR HELPER Primary Care Provider [phone] Christiane Rodríguez MD Unavailable [phone] Luis A Escobedo MD Unavailable +[phone] Chely Fernandez PA-C Unavailable [phone] Jing Cadena VENDING MACHINE HOST/HOSTESS OUTREACH LIBRARIAN Unavailable [phone] Radha Lopez [facility] Unavailable +[phone] Lusi A Escobedo MD Unavailable [phone] Geri Loza PAEddaC Unavailable [phone] Raina Patterson VENDING MACHINE HOST/HOSTESS DIGITAL PRESS OPERATOR Unavailable [phone] Encounter Details Date Type Department Care Team (Late st Contact Info) Description 08/19/2022 Telephone [facility] [place] [address] [place] [address] 4th [place] [address] Geri Loza PA-C 909 [place] [address] Social History Tobacco Use Types Packs/Day Years [...] her insurance won't pay for them at [facility] and she needs the lab orders sent to [facility] in [place]. Please send myc msg to pt once lab orders sent. documented in this encounter Plan of Treatment Not on file documented as of this encounter Visit Diagnoses Not on filedocumented in this encounter Care Teams Reed Polisher Relationship Specialty Start Date End Date [place] [address] [place], [place] 661347 PCP - General 08/19/22 10/14/22 [place] [address] [facility] [place] [address] PCP - General 10/15/22 Roderick Morelos MD [address] [place] [address] Cardiovascular Disease 02/03/22 Magno Wood MD 420 [facility] 396 [place] [address] Otolaryngology 02/21/22 Sophie Ocasio AuD [address] [place] [address] 000515 Ultrasound Technol Audiology 02/21/22 Henny Rosales APRN DIGITAL PRESS OPERATOR [address] [place] [address] Assigned Heart and Vascular Provider 08/09/[address] [place] [address] 102695 Registered Dietitian Dietitian, Registered 09/02/22 Christiane Rodríguez MD [address] [place] [address] 676395 Otolaryngology 11/12/22 Luis A Escobedo MD [address] [place] [address] 420755 Assigned Surgical Provider 11/01/22 11/28/22 Chely Fernandez PA-C [address] [place] [address] 730035 Assigned Surgical Provider 11/29/22 02/06/23 Jing Cadena APRN OUTREACH LIBRARIAN 420 [facility] 450 [place], [place] 208615 Clinical Nurse Specialist Anesthesiology 01/15/23 Radha Lopez, [facility] 909 [place], [place] 231415 Pharmacist Pharmacist 01/16/23 Luis A Escobedo MD 420 [facility] 195 [place], [place] 709985 Assigned Surgical Provider 02/07/23 04/15/23 Geri Loza PA-C 909 [place], [place] 455385 Assigned Surgical Provider 04/16/23 Raina Patterson, GINA DIGITAL PRESS OPERATOR [address] [place] 671435 Nurse Practitioner Cardiovascular Disease 05/11/23 documented as of this encounter
--- OUTSIDE RECORDS SUMMARY | 2024-01-11 23:13 | XMS_ITS | Encounter Summary ---
Author Organization [facility] Address [address] [place] [address]34 Care Team Providers Care Occupational Therapy Teacher Name Role Phone Roderick Morelos MD Unavailable [phone] Magno Wood MD Unavailable [phone] Sophie Ocasio Unavailable [phone] Henny Rosales WINCHMAN/CRANE OPERATOR STICKER MACHINE OPERATOR Unavailable [phone] [facility], [facility] Primary Care Pr ovider Sharee Oliva RD Unavailable [phone] Kaykay Duarte MAIL ORDER BILLER Primary Care Provider [phone] Christiane Rodríguez MD Unavailable [phone] Luis A Escobedo MD Unavailable +[phone] Chely Fernandez PA-C Unavailable [phone] Jing Cadena WINCHMAN/CRANE OPERATOR RING SPINNER Unavailable +[phone] Radha Lopez [facility] Unavailable +[phone] Luis A Escobedo MD Unavailable [phone] Geri Loza PAEddaC Unavailable [phone] Raina Patterson WINCHMAN/CRANE OPERATOR STICKER MACHINE OPERATOR Unavailable +[phone] Encounter Details Date Type Department Care Team (Late st Contact Info) Description 09/02/2022 MyC Medical Advice [facility] [address] 4th [place] [address] Geri Loza PA-C 909 [place], [place] 859105 Social History Tobacco Use Types Packs/Day Years [...] filedocumented in this encounter Care Teams Occupational Therapy Teacher Relationship Specialty Start [place] [address] [place] [address] PCP - General 08/19/22 10/14/22 Kaykay Duarte NP [address] [place] [address] [place] 930817 PCP - General 10/15/22 Roderick Morelos MD [address] [place], [place] 116375 Cardiovascular Disease 02/03/22 Magno Wood MD [address] [place] [address] 396 [place], [place] 68438455 Otolaryngology 02/21/22 Sophie Ocasio AuD [address] [place] [address] 038545 Quality Control Director Audiology 02/21/22 Henny Rosales APRN STICKER MACHINE OPERATOR [address] [place] [address] Assigned Heart and Vascular Provider 08/09/[address] [place] [address] Registered Dietitian Dietitian, Registered 09/02/22 Christiane Rodríguez MD [address] [place] [address] 396 [place] [address] Otolaryngology 11/12/22 Luis A Escobedo MD [address] [place] [address] Assigned Surgical Provider 11/01/22 11/28/22 Chely Fernandez PA-C [address] [place] [address] 437085 Assigned Surgical Provider 11/29/22 02/06/23 Jing Cadena APRN RING SPINNER [address] [place] [address] 450 [place] [address] Clinical Nurse Specialist Anesthesiology 01/15/23 Radha Lopez, [facility] [address] [place] [address] Pharmacist Pharmacist 01/16/23 Luis A Esocbedo MD 420 [facility] 195 [place], [place] 550685 Assigned Surgical Provider 02/07/23 04/15/23 Geri Loza PA-C 909 [place], [place] 898765 Assigned Surgical Provider 04/16/23 Raina Patterson APRN STICKER MACHINE OPERATOR [address] [place], [place] 396685 Nurse Practitioner Cardiovascular Disease 05/11/23 documented as of this encounter
--- OUTSIDE RECORDS SUMMARY | 2024-01-11 23:13 | XMS_ITS | Encounter Summary ---
Author Organization [place] Address [address] [place] [address]70 Care Team Providers Care Radio Rigger Name Role Phone Roderick Morelos MD Unavailable [phone] Magno Wood MD Unavailable [phone] Sophie Ocasio Unavailable +[phone] Henny Rosales SANDBLASTER PAINT SPRAYER QUALITY ASSURANCE TESTER Unavailable [phone] [facility], [facility] Primary Care Pr ovider Sharee Oliva RD Unavailable [phone] Kaykay Duarte DEBURRING AND TOOLING MACHINE OPERATOR Primary Care Provider [phone] Christiane Rodríguez MD Unavailable [phone] Luis A Escobedo MD Unavailable +[phone] Chely FernandezC Unavailable [phone] Jing Cadena SANDBLASTER PAINT SPRAYER LIBRARY CONSULTANT Unavailable + [phone] Radha Lopez [facility] Unavailable +[phone] Luis A Escobedo MD Unavailable [phone] Geri Loza PA-C Unavailable [phone] Raina Patterson SANDBLASTER PAINT SPRAYER QUALITY ASSURANCE TESTER Unavailable [phone] Reason for Visit * Reason Onset Date Comments Prior Auth - Medication 09/03/2022 Orlistat -PA DENIED Encounter Details Date Type Department Care Team (Late st Contact Info) Description 09/03/2022 Telephone M [facility] [address] [place] [address] Geri Loza PA-C 909 [place], [place] 477595 Prior Auth - Medication (Orlistat-PA DENIED ) [...] Team PA Initiation Medication: Orlistat Insurance Company: [employer] - Pharmacy Filling the Rx: [id number] - [place] - [id number] Filling Pharmacy Filling Pharmacy Fax: Start Date: [...] ?? Gastric sleeve was completed 08/09/[address] [facility] [address] Barillas. Starting weight 338lb, BMI 56.25. She felt that instantly did not see expected weight loss results. Per chart review had lost 8lbsby 3 months post op and has followed up with [facility] since. She has lost 38lbs since surgery, andhas been able maintain weight loss of 305lbs for many years. However, continues to feel that is inadequet weight loss and wanted to discuss a conversion to RYGB today. Insurance Name: Insurance ID: Pharmacy Information (if different than what is on RX) Name: [id number] - [place] [id number] * Telephone Encounter - Rowena Small - 09/03/2022 8:44 AM CDT Reason for Call: Prior Auth Detailed comments: Pt states [facility] said a PA is required [...] on filedocumented in this encounter Care Teams Radio Rigger Relationship Specialty Start Date End Date Clinic, [place] [address] [place] [address] PCP - General 08/19/22 10/14/22 Kaykay Duarte, DEBURRING AND TOOLING MACHINE OPERATOR [address] [place] [address] PCP - General 10/15/22 Roderick Morelos MD [address] [place] [address] Cardiovascular Disease 02/03/22 Magno Wood MD [address] [place] [address] 396 [place], [place] 912085 Otolaryngology 02/21/22 Sophie Ocasio AuD [address] [place] [address] 245625 Research Fellow Audiology 02/21/22 Henny Rosales APRN QUALITY ASSURANCE TESTER [address] [place] [address] Assigned Heart and Vascular Provider 08/09/[address] [place] [address] 244005 Registered Dietitian Dietitian, Registered 09/02/22 Christiane Rodríguez MD 420 [facility] 396 [place], [place] 596315 Otolaryngology 11/12/22 Luis A Escobedo MD 420 [facility] 195 [place], [place] 153185 Assigned Surgical Provider 11/01/22 11/28/22 Chely Fernandez PA-C [address] [place] [address] 206425 Assigned Surgical Provider 11/29/22 02/06/23 Jing Cadena APRN LIBRARY CONSULTANT 420 [facility] 450 [place], [place] 171065 Clinical Nurse Specialist Anesthesiology 01/15/23 Radha Lopez, [facility] [address] [place] [place] [address] 384875 Pharmacist Pharmacist 01/16/23 Luis A Escobedo MD 420 [facility] 195 [place], [place] 284165 Assigned Surgical Provider 02/07/23 04/15/23 Geri Loza PA-C 909 [place], [place] 744015 Assigned Surgical Provider 04/16/23 Raina Patterson APRN QUALITY ASSURANCE TESTER [address] [place] [address] Nurse Practitioner Cardiovascular Disease 05/11/23 documented as of this encounter
--- OUTSIDE RECORDS SUMMARY | 2024-01-11 23:13 | XMS_ITS | Encounter Summary ---
Author Organization [facility] Address [address] [place] [address] Care Team Providers Care Pesticide Chemist Name Role Phone [facility] [place] Primary Care Provider Unavailable Roderick Morelos MD Unavailable [phone] Magno Wood MD Unavailable Sophie Ocasio Unavailable [phone] Henny Rosales DEPARTMENTAL SECRETARY LINEMARKER Unavailable [phone] [facility] [place] Primary Care Pr ovider Sharee Oliva RD Unavailable [phone] Kaykay Duarte PESTICIDE CHEMIST Primary Care Provider [phone] Christiane Rodríguez MD Unavailable [phone] Luis A Escobedo MD Unavailable [phone] Chely FernandezC Unavailable [phone] Jing Cadena APRN MANAGER COUNTRY Unavailable Radha Lopez [facility] Unavailable [phone] Luis A Escobedo MD Unavailable [phone] Geri Loza PA-C Unavailable [phone] Raina Patterson DEPARTMENTAL SECRETARY LINEMARKER Unavailable [phone] Encounter Details Date Type Department Care Team (Late st Contact Info) Description 08/16/2022 [facility] [address] 4th [place] [address] Kang Griffiths Social History Tobacco [...] on filedocumented in this encounter Care Teams Pesticide Chemist Relationship Specialty Start Date End Date Ernestina Martini PCP - General Family Practice 10/12/19 08/18/22 [facility] [address] [place] [address] PCP - General 08/19/22 10/14/22 [place] [address] [place] [address] PCP - General 10/15/22 Roderick Morelos MD [address] [place] [address] Cardiovascular Disease 02/03/22 Magno Wood MD [address] [place] [facility] 396 [place], [place] 688005 Otolaryngology 02/21/22 Sophie Ocasio AuD 9 [place], [place] 316055 Forging Roll Operator Audiology 02/21/22 Henny Rosales APRN LINEMARKER [address] [place] [address] Assigned Heart and Vascular Provider 08/09/[address] [place] [address] 329265 Registered Dietitian Dietitian, Registered 09/02/22 Christiane Rodríguez MD 420 [facility] 396 [place] [address] Otolaryngology 11/12/22 Luis A Escobedo MD 420 [facility] 195 [place] [address] Assigned Surgical Provider 11/01/22 11/28/22 Chely Fernandez PA-C [address] [place] [address] Assigned Surgical Provider 11/29/22 02/06/23 Jing Cadena APRN MANAGER COUNTRY 420 [facility] 450 [place] [address] Clinical Nurse Specialist Anesthesiology 01/15/23 Radha Lopez [facility] [address] [place] [address] 832455 Pharmacist Pharmacist 01/16/23 Luis A Escobedo MD 420 [facility] 195 [place], [place] 347685 Assigned Surgical Provider 02/07/23 04/15/23 Geri Loza PA-C 909 [place], [place] 888025 Assigned Surgical Provider 04/16/23 Raina Patterson APRN LINEMARKER [address] [place], [place] 984625 Nurse Practitioner Cardiovascular Disease 05/11/23 documented as of this encounter
--- OUTSIDE RECORDS SUMMARY | 2024-01-11 23:13 | XMS_ITS | Encounter Summary ---
Author Organization [place] Address [address] [place] [address] 25543 Care Team Providers Care Chemical Strength Tester Name Role Phone Roderick Morelos MD Unavailable [phone] Magno Wood MD Unavailable [phone] Sophie Ocasio Unavailable [phone] Henny Rosales WINDOWS LAPTOP TECHNICIAN DOLL DRESSER Unavailable [phone] [facility] Primary Care Pr ovider Sharee Oliva RD Unavailable [phone] Kaykay Duarte SENSOR TECHNICIAN Primary Care Provider [phone] Christiane Rodríguez MD Unavailable [phone] Luis A Escobedo MD Unavailable +[phone] Chely Fernandez PA-C Unavailable [phone] Jing Cadena WINDOWS LAPTOP TECHNICIAN PRIMARY TEACHING ASSISTANT Unavailable [phone] Radha Lopez [facility] Unavailable [phone] Luis A Escobedo MD Unavailable [phone] Geri Loza PAEddaC Unavailable [phone] Raina Patterson WINDOWS LAPTOP TECHNICIAN DOLL DRESSER Unavailable [phone] Encounter Details Date Type Department Care Team (Late st Contact Info) Description 09/02/2022 [facility] [address] [place] [address] Kang Griffiths Social History Tobacco [...] on filedocumented in this encounter Care Teams Chemical Strength Tester Relationship Specialty Start [place] [address] [place] [address] PCP - General 08/19/22 10/14/22 Kaykay Duarte NP [address] [place] [address] [place] [address] PCP - General 10/15/22 Roderick Morelos MD [address] [place], [place] 835875 Cardiovascular Disease 02/03/22 Magno Wood MD [address] [place] [address] 396 [place], [place] 622385 Otolaryngology 02/21/22 Sophie Ocasio, AuD [address] [place] [address] Tank Farm Operator Audiology 02/21/22 Henny Rosales, WINDOWS LAPTOP TECHNICIAN DOLL DRESSER [address] [place] [address] Assigned Heart and Vascular Provider 08/09/[address] [place] [address] 315535 Registered Dietitian Dietitian, Registered 09/02/22 Christiane Rodríguez MD [address] [place] [address] 396 [place], [place] 381385 Otolaryngology 11/12/22 Luis A Escobedo MD [address] [place] [address] 658865 Assigned Surgical Provider 11/01/22 11/28/22 Chely Fernandez PA-C [address] [place] [address] 665635 Assigned Surgical Provider 11/29/22 02/06/23 Jing Cadena, WINDOWS LAPTOP TECHNICIAN PRIMARY TEACHING ASSISTANT [address] [place] [address] 450 [place], [place] 787465 Clinical Nurse Specialist Anesthesiology 01/15/23 Radha Lopez [facility] [address] [place] [address] 310435 Pharmacist Pharmacist 01/16/23 Luis A Escobedo MD [address] [place] [address] 195 [place] [address] Assigned Surgical Provider 02/07/23 04/15/23 Geri Loza PA-C 9 [place] [address] Assigned Surgical Provider 04/16/23 Raina Patterson APRN [facility] [address] [facility] [address] [place] [address] Nurse Practitioner Cardiovascular Disease 05/11/23 documented as of this encounter
--- OUTSIDE RECORDS SUMMARY | 2024-01-11 23:13 | XMS_ITS | Encounter Summary ---
Author Organization [facility] Address [address] [place] [address] 80288 Care Team Providers Care Family Services Worker Name Role Phone Roderick Morelos MD Unavailable [phone] Magno Wood MD Unavailable [phone] Sophie Ocasio Unavailable [phone] Henny Rosales MILLER APPRENTICE SHREDDING MACHINE OPERATOR Unavailable [phone] Unavailable [phone] Kaykay Duarte COMMUNITY HEALTH NURSE STAFF Primary Care Provider [phone] Christiane Rodríguez MD Unavailable Luis A Escobedo MD Unavailable [phone] Chely Fernandez-C Unavailable [phone] Jing Cadena APRN DIRECTOR CHECK Unavailable Radha Lopez [facility] Unavailable [phone] Luis A Escobedo MD Unavailable [phone] Geri LozaC Unavailable [phone] Raina Patterson APRN SHREDDING MACHINE OPERATOR Unavailable [phone] Encounter Details Date Type Department Care Team (Late st Contact Info) Description 10/17/2022 MyC Medical Advice [facility] [address] 4th [place] [address] Henny Arguello RN Social History [...] documented as of this encounter Care Teams Family Services Worker Relationship Specialty [place] [address] [place] [address] PCP - General 10/15/22 Roderick Morelos MD [address] [place] [address] Cardiovascular Disease 02/03/22 Magno Wood MD [address] [place] [address] 117275 Otolaryngology 02/21/22 Sophie Ocasio, Nick [address] [place] [address] 524075 Spring Machine Operator Audiology 02/21/22 Henny Rosales APRN SHREDDING MACHINE OPERATOR [address] [place] [address] Assigned Heart and Vascular Provider 08/09/[address] [place] [address] 850205 Registered Dietitian Dietitian, Registered 09/02/22 Christiane Rodríguez MD [address] [place] [address] 396 [place], [place] 567735 Otolaryngology 11/12/22 Luis A Escobedo MD [address] [place] [address] 599935 Assigned Surgical Provider 11/01/22 11/28/22 Chely Fernandez PA-C [address] [place] [address] 845115 Assigned Surgical Provider 11/29/22 02/06/23 Jing Cadena MILLER APPRENTICE DIRECTOR CHECK [address] [place] [address] 450 [place], [place] 927085 Clinical Nurse Specialist Anesthesiology 01/15/23 Radha Lopez, [facility] [address] [place] [address] 591115 Pharmacist Pharmacist 01/16/23 Luis A Escobedo MD [address] [place] [address] 195 [place], [place] 657945 Assigned Surgical Provider 02/07/23 04/15/23 Geri Loza PA-C 9 [place] [address] Assigned Surgical Provider 04/16/23 Raina Patterson APRN SHREDDING MACHINE OPERATOR [address] [facility] [address] [place] [address] Nurse Practitioner Cardiovascular Disease 05/11/23 documented as of this encounter
--- OUTSIDE RECORDS SUMMARY | 2024-01-11 23:13 | XMS_ITS | Encounter Summary ---
Author Organization [place] Address [address] [place] [address] 89809 Care Team Providers Care Compensation Intern Name Role Phone Roderick Morelos MD Unavailable [phone] Magno Wood MD Unavailable Sophie Ocasio Unavailable [phone] Henny Rosales HIGH SCHOOL COMPUTER SCIENCE TEACHER OIL WELL FISHING TOOL TECHNICIAN Unavailable [phone] [facility], [facility] Primary Care Pr ovider Sharee Oliva RD Unavailable [phone] Kaykay Duarte COMPOSITION MOLDER Primary Care Provider [phone] Christiane Rodríguez MD Unavailable [phone] Luis A Escobedo MD Unavailable +[phone] Chely Fernandez PA-C Unavailable [phone] Jing Cadena HIGH SCHOOL COMPUTER SCIENCE TEACHER INSTITUTE SCIENTIST Unavailable +[phone] Radha Lopez [facility] Unavailable +[phone] Luis A Escobedo MD Unavailable [phone] Geri Loza PAEddaC Unavailable [phone] Raina Patterson HIGH SCHOOL COMPUTER SCIENCE TEACHER OIL WELL FISHING TOOL TECHNICIAN Unavailable +[phone] Encounter Details Date Type Department Care Team (Late st Contact Info) Description 09/09/2022 MyC Medical Advice [facility] [address] [place] [address] Tanya Larsen RN Social History [...] on filedocumented in this encounter Care Teams Compensation Intern Relationship Specialty Start Date End Date Clinic, [facility] [place] [address] [place] [address] PCP - General 08/19/22 10/14/22 Kaykay Duarte, COMPOSITION MOLDER [address] [place] [address] [place] [address] PCP - General 10/15/22 Roderick Morelos MD [address] [place], [place] 564555 Cardiovascular Disease 02/03/22 Magno Wood MD [address] [place] [address] 396 [place], [place] 660695 Otolaryngology 02/21/22 Sophie Ocasio AuD [address] [place] [address] 453555 Camera Repairman Audiology 02/21/22 Henny Rosales, HIGH SCHOOL COMPUTER SCIENCE TEACHER OIL WELL FISHING TOOL TECHNICIAN [address] [place] [address] Assigned Heart and Vascular Provider 08/09/[address] 909 [place] [address] Registered Dietitian Dietitian, Registered 09/02/22 Christiane Rodríguez MD 420 [facility] 396 [place], [place] 742395 Otolaryngology 11/12/22 Luis A Escobedo MD [address] [place] [address] 437695 Assigned Surgical Provider 11/01/22 11/28/22 Chely Fernandez PA-C [address] [place] [address] 817415 Assigned Surgical Provider 11/29/22 02/06/23 Jing Cadena, HIGH SCHOOL COMPUTER SCIENCE TEACHER INSTITUTE SCIENTIST [address] [place] [address] 450 [place], [place] 992305 Clinical Nurse Specialist Anesthesiology 01/15/23 Radha Lopez, [facility] [address] [place] [address] 677185 Pharmacist Pharmacist 01/16/23 Luis A Escobedo MD [address] [place] [address] 195 [place], [place] 368505 Assigned Surgical Provider 02/07/23 04/15/23 Geri Loza PA-C 909 [place] [address] Assigned Surgical Provider 04/16/23 Raina Patterson APRN OIL WELL FISHING TOOL TECHNICIAN [address] [place] [address] Nurse Practitioner Cardiovascular Disease 05/11/23 documented as of this encounter
--- OUTSIDE RECORDS SUMMARY | 2024-01-11 23:13 | XMS_ITS | Encounter Summary ---
Author Organization [facility] Address [address] [place] [address] 96353 Care Team Providers Care X Ray Tech Name Role Phone Roderick Morelos MD Unavailable [phone] Mango Wood MD Unavailable [phone] Sophie Ocasio AuD Unavailable [phone] Henny Rosales MOLDING LINE OPERATOR SUPERVISOR MAIL CARRIERS Unavailable [phone] Unavailable [phone] Kaykay Duarte TEXTILE SCRAP SALVAGER Primary Care Provider [phone] Christiane Rodríguez MD Unavailable Luis A Escobedo MD Unavailable [phone] Chely Fernandez-C Unavailable +[phone] Jing Cadena APRN ASSISTANT CUSTOMER SERVICE MANAGER Unavailable Radha Lopez [facility] Unavailable [phone] Luis A Escobedo MD Unavailable [phone] Geri LozaC Unavailable [phone] Raina Patterson APRN SUPERVISOR MAIL CARRIERS Unavailable [phone] Encounter Details Date Type Department Care Team (Late st Contact Info) Description 10/16/2022 MyC Medical Advice Initial Department Mychart, [facility] Social History Tobacco Use Types Packs/Day Years [...] documented as of this encounter Care Teams X Ray Tech Relationship Specialty Start Date End Date Kaykay Duarte, TEXTILE SCRAP SALVAGER [address] [place] [address] [place] 750077 PCP - General 10/15/22 Roderick Morelos MD [address] [place], [place] 733035 Cardiovascular Disease 02/03/22 Magno Wood MD 420 [facility] 396 [place], [place] 334445 Otolaryngology 02/21/22 Sophie Ocasio AuD 909 [place], [place] 557805 Sales Support Assistant Audiology 02/21/22 Henny Rosales, MOLDING LINE OPERATOR SUPERVISOR MAIL CARRIERS [address] [place] [address] Assigned Heart and Vascular Provider 08/09/[address] 909 [place], [place] 620965 Registered Dietitian Dietitian, Registered 09/02/22 Christiane Rodríguez MD 420 [facility] 396 [place], [place] 499905 Otolaryngology 11/12/22 Luis A Escobedo MD [address] [place] [address] 195 [place] [address] Assigned Surgical Provider 11/01/22 11/28/22 Chely Fernandez PA-C [address] [place] [address] 831325 Assigned Surgical Provider 11/29/22 02/06/23 Jing Cadena, MOLDING LINE OPERATOR ASSISTANT CUSTOMER SERVICE MANAGER 420 [facility] 450 [place], [place] 535535 Clinical Nurse Specialist Anesthesiology 01/15/23 Radha Lopez [facility] 9 [place], [place] 594045 Pharmacist Pharmacist 01/16/23 Luis A Escobedo MD [address] [place] [address] 195 [place], [place] 859035 Assigned Surgical Provider 02/07/23 04/15/23 Geri Loza PA-C 9 [place] [address] Assigned Surgical Provider 04/16/23 Raina Patterson APRN SUPERVISOR MAIL CARRIERS [address] [place] [address] Nurse Practitioner Cardiovascular Disease 05/11/23 documented as of this encounter
--- OUTSIDE RECORDS SUMMARY | 2024-01-11 23:13 | XMS_ITS | Encounter Summary ---
Author Organization [place] Address [address] [place] [address] Care Team Providers Care Extruding Department Supervisor Name Role Phone Roderick Morelos MD Unavailable [phone] Magno Wood MD Unavailable [phone] Sophie Ocasio Unavailable [phone] Henny Rosales ANIMAL CONTROL SUPERVISOR HEAVY EQUIPMENT FIELD MECHANIC Unavailable [phone] [facility], [facility] Primary Care Pr ovider Sharee Oliva RD Unavailable [phone] Kaykay Duarte TELEMARKETING AGENT Primary Care Provider [phone] Christiane Rodríguez MD Unavailable [phone] Luis A Escobedo MD Unavailable +[phone] Chely Fernandez PA-C Unavailable [phone] Jing Cadena ANIMAL CONTROL SUPERVISOR SATELLITE TELEVISION INSTALLER Unavailable +[phone] Radha Lopez [facility] Unavailable +[phone] Luis A Escobedo MD Unavailable [phone] Geri Loza PAEddaC Unavailable [phone] Raina Patterson ANIMAL CONTROL SUPERVISOR HEAVY EQUIPMENT FIELD MECHANIC Unavailable [phone] Encounter Details Date Type Department Care Team (Late st Contact Info) Description 10/03/2022 MyC Medical Advice [facility] [address] 4th [place] [address] Geri Loza PA-C [address] [place] [address] Social History Tobacco Use Types Packs/Day Years [...] on filedocumented in this encounter Care Teams Extruding Department Supervisor Relationship Specialty Start Date End Date Clinic, [facility] [place] [address] [place] [address] PCP - General 08/19/22 10/14/22 Kaykay Duarte TELEMARKETING AGENT [address] [place] [address] [place] [address] PCP - General 10/15/22 Roderick Morelos MD [address] [place] [address] Cardiovascular Disease 02/03/22 Magno Wood MD [address] [place] [address] 938115 Otolaryngology 02/21/22 Sophie Ocasio, AuD [address] [place] [address] 342735 Master In Chancery Audiology 02/21/22 Henny Rosales APRN HEAVY EQUIPMENT FIELD MECHANIC [address] [place] [address] Assigned Heart and Vascular Provider 08/09/[address] [place] [address] Registered Dietitian Dietitian, Registered 09/02/22 Christiane Rodríguez MD [address] [place] [address] 396 [place], [place] 265315 Otolaryngology 11/12/22 Luis A Escobedo MD [address] [place] [address] 195 [place], [place] 108525 Assigned Surgical Provider 11/01/22 11/28/22 Chely Fernandez PA-C [address] [place] [address] 953305 Assigned Surgical Provider 11/29/22 02/06/23 Jing Cadena ANIMAL CONTROL SUPERVISOR SATELLITE TELEVISION INSTALLER 420 [facility] 450 [place], [place] 944385 Clinical Nurse Specialist Anesthesiology 01/15/23 Radha Lopez [facility] [address] [place] [address] 990355 Pharmacist Pharmacist 01/16/23 Luis A Escobedo MD [address] [place] [address] 195 [place], [place] 050175 Assigned Surgical Provider 02/07/23 04/15/23 Geri Loza PA-C 9 [place], [place] 839995 Assigned Surgical Provider 04/16/23 Raina Patterson APRN CNP [address] [place] [address] Nurse Practitioner Cardiovascular Disease 05/11/23 documented as of this encounter
--- OUTSIDE RECORDS SUMMARY | 2024-01-11 23:13 | XMS_ITS | Encounter Summary ---
Author Organization [facility] Address [address] [place] [address] Care Team Providers Care Mechanical Drafter Name Role Phone Roderick Morelos MD Unavailable [phone] Magno Wood MD Unavailable [phone] Sophie Ocasio Unavailable [phone] Henny Rosales AIRFIELD OPERATIONS SPECIALIST ENRICHMENT DIRECTOR Unavailable [phone] [facility], [facility] Primary Care Pr ovider Sharee Oliva RD Unavailable [phone] Kaykay Duarte CLINICAL REVIEW NURSE Primary Care Provider [phone] Christiane Rodríguez MD Unavailable [phone] Luis A Escobedo MD Unavailable +[phone] Chely Fernandez PA-C Unavailable [phone] Jing Cadena AIRFIELD OPERATIONS SPECIALIST AMALGAMATOR Unavailable [phone] Radha Lopez [facility] Unavailable +[phone] Luis A Escobedo MD Unavailable [phone] Geri Loza PAEddaC Unavailable [phone] Raina Patterson AIRFIELD OPERATIONS SPECIALIST ENRICHMENT DIRECTOR Unavailable [phone] Encounter Details Date Type Department Care Team (Late st Contact Info) Description 08/19/2022 MyC Medical Advice [facility] [address] [place] [address] Tanya Larsen RN Social History [...] on filedocumented in this encounter Care Teams Mechanical Drafter Relationship Specialty Start [place] [address] [place] [address] PCP - General 08/19/22 10/14/22 Kaykay Duarte CLINICAL REVIEW NURSE [address] [place] [address] [place] [address] PCP - General 10/15/22 Roderick Morelos MD [address] [place], [place] 121055 Cardiovascular Disease 02/03/22 Magno Wood MD [address] [place] [address] 396 [place], [place] 977245 Otolaryngology 02/21/22 Sophie Ocasio, AuD [address] [place] [address] 230365 Parimutuel Ticket Seller Audiology 02/21/22 Henny Rosales, AIRFIELD OPERATIONS SPECIALIST ENRICHMENT DIRECTOR [address] [place] [address] Assigned Heart and Vascular Provider 08/09/[address] [place] [address] 529685 Registered Dietitian Dietitian, Registered 09/02/22 Christiane Rodríguez MD [address] [place] [address] 396 [place], [place] 262845 Otolaryngology 11/12/22 Luis A Escobedo MD [address] [place] [address] 195 [place], [place] 766865 Assigned Surgical Provider 11/01/22 11/28/22 Chely Fernandez PA-C [address] [place] [address] 146205 Assigned Surgical Provider 11/29/22 02/06/23 Jing Cadena, AIRFIELD OPERATIONS SPECIALIST AMALGAMATOR 420 [facility] 450 [place], [place] 155305 Clinical Nurse Specialist Anesthesiology 01/15/23 Radha Lopez [facility] [address] [place] [address] 121675 Pharmacist Pharmacist 01/16/23 Luis A Escobedo MD [address] [place] [address] 195 [place] [address] Assigned Surgical Provider 02/07/23 04/15/23 Geri Loza PA-C 9 [place] [address] Assigned Surgical Provider 04/16/23 Raina Patterson APRN [facility] [address] [place] [address] Nurse Practitioner Cardiovascular Disease 05/11/23 documented as of this encounter
--- OUTSIDE RECORDS SUMMARY | 2024-01-11 23:13 | XMS_ITS | Encounter Summary ---
Author Organization [facility] Address [address] [place] [address] 11323 Care Team Providers Care Grinder Carbon Plant Name Role Phone Roderick Morelos MD Unavailable [phone] Magno Wood MD Unavailable [phone] Sophie Ocasio Unavailable [phone] Henny Rosales BUSINESS SERVICES INTERN LOCKSTITCH SLEEVE SETTER Unavailable [phone] Unavailable [phone] Kaykay Duarte TRAVELER CHANGER Primary Care Provider [phone] Christiane Rodríguez MD Unavailable Luis A Escobedo MD Unavailable +[phone] Chely Fernandez-C Unavailable +[phone] Jing Cadena APRN BACK TUFTER Unavailable Radha Lopez [facility] Unavailable [phone] Luis A Escobedo MD Unavailable [phone] Geri LozaC Unavailable [phone] Raina Patterson APRN LOCKSTITCH SLEEVE SETTER Unavailable [phone] Encounter Details Date Type Department Care Team (Late st Contact Info) Description 10/15/2022 [facility] Medical Advice [facility] [place] [address] [facility] [address] 4th [place] [address] Luis A Escobedo MD [address] [place] [facility] 195 [place], [place] 426895 Social History Tobacco Use Types Packs/Day Years [...] documented as of this encounter Care Teams Grinder Carbon Plant Relationship Specialty [place] [address] [place] [address] PCP - General 10/15/22 Roderick Morelos MD [address] [place] 417035 Cardiovascular Disease 02/03/22 Magno Wood MD [address] [place] [address] [facility] 396 [place], [place] 615645 Otolaryngology 02/21/22 Sophie Ocasio AuD 909 [place], [place] 160285 Flexible Shaft Winder Audiology 02/21/22 Henny Rosales APRN LOCKSTITCH SLEEVE SETTER [address] [place] [address] Assigned Heart and Vascular Provider 08/09/[address] [place] [address] 806975 Registered Dietitian Dietitian, Registered 09/02/22 Christiane Rodríguez MD 420 [facility] 396 [place], [place] 545625 Otolaryngology 11/12/22 Luis A Escobedo MD 420 [facility] 195 [place] [address] Assigned Surgical Provider 11/01/22 11/28/22 Chely Fernandez PA-C [address] [place] [address] 914755 Assigned Surgical Provider 11/29/22 02/06/23 Jing Cadena BUSINESS SERVICES INTERN BACK TUFTER 420 [facility] 450 [place], [place] 508195 Clinical Nurse Specialist Anesthesiology 01/15/23 Radha Lopez [facility] [address] [place] [address] 238715 Pharmacist Pharmacist 01/16/23 Luis A Escobedo MD 420 [facility] 195 [place] [address] Assigned Surgical Provider 02/07/23 04/15/23 Geri Loza PA-C 909 [place] [address] Assigned Surgical Provider 04/16/23 Raina Patterson APRN [facility] [address] [place], [place] 622155 Nurse Practitioner Cardiovascular Disease 05/11/23 documented as of this encounter
--- OUTSIDE RECORDS SUMMARY | 2024-01-11 23:13 | XMS_ITS | Encounter Summary ---
Author Organization [facility] Address [address] [place] [address] 6[address]21 Care Team Providers Care Laborer Pipelines Name Role Phone Roderick Morelos MD Unavailable [phone] Magno Wood MD Unavailable [phone] Sophie Ocasio Unavailable [phone] Henny Rosales ENTRY DRIVER OPERATOR HOSPITALITY COORDINATOR Unavailable [phone] [facility], [facility] Primary Care Pr ovider Sharee Oliva RD Unavailable [phone] Kaykay Duarte FREIGHT UNLOADER Primary Care Provider [phone] Christiane Rodríguez MD Unavailable [phone] Luis A Escobedo MD Unavailable +[phone] Chely Fernandez PA-C Unavailable [phone] Jing Cadena ENTRY DRIVER OPERATOR BAKER BREAD Unavailable [phone] Radha Lopez [facility] Unavailable +[phone] Luis A Escobedo MD Unavailable [phone] Geri Loza PAEddaC Unavailable [phone] Raina Patterson ENTRY DRIVER OPERATOR HOSPITALITY COORDINATOR Unavailable [phone] Encounter Details Date Type Department Care Team (Late st Contact Info) Description 09/15/2022 MyC Medical Advice [facility] [address] 4th [place] [address] Maria Guadalupe Wolfe Social History [...] on filedocumented in this encounter Care Teams Laborer Pipelines Relationship Specialty Start Date End Date Clinic, [place] [place] [address] [place] [address] PCP - General 08/19/22 10/14/22 Kaykay Duarte, FREIGHT UNLOADER [address] [place] [address] PCP - General 10/15/22 Roderick Morelos MD [address] [place], [place] 177025 Cardiovascular Disease 02/03/22 Magno Wood MD [address] [place] [address] 226815 Otolaryngology 02/21/22 Sophie Ocasio AuD [address] [place] [address] 271995 Supervisor Operations Audiology 02/21/22 Henny Rosales, ENTRY DRIVER OPERATOR HOSPITALITY COORDINATOR [address] [place] [address] Assigned Heart and Vascular Provider 08/09/[address] 9 [place] [address] Registered Dietitian Dietitian, Registered 09/02/22 Christiane Rodríguez MD 420 [facility] 396 [place], [place] 431485 Otolaryngology 11/12/22 Luis A Escobedo MD [address] [place] [address] 195 [place], [place] 658625 Assigned Surgical Provider 11/01/22 11/28/22 Chely Fernandez PA-C [address] [place] [address] 960085 Assigned Surgical Provider 11/29/22 02/06/23 Jing Cadena, ENTRY DRIVER OPERATOR BAKER BREAD [address] [place] [address] 450 [place], [place] 197515 Clinical Nurse Specialist Anesthesiology 01/15/23 Radha Lopez, [facility] [address] [place] [address] 247295 Pharmacist Pharmacist 01/16/23 Luis A Escobedo MD [address] [place] [address] 195 [place], [place] 148705 Assigned Surgical Provider 02/07/23 04/15/23 Geri Loza PA-C 909 [place] [address] Assigned Surgical Provider 04/16/23 Raina Patterson APRN HOSPITALITY COORDINATOR [address] [place] [address] Nurse Practitioner Cardiovascular Disease 05/11/23 documented as of this encounter
--- OUTSIDE RECORDS SUMMARY | 2024-01-11 23:13 | XMS_ITS | Encounter Summary ---
Author Organization [place] Address [address] [place] [address] 21413 Care Team Providers Care Business Excellence Leader Name Role Phone Roderick Morelos MD Unavailable [phone] Magno Wood MD Unavailable [phone] Sophie Ocasio Unavailable [phone] Henny Rosales BLOCK OPERATOR STONECUTTER APPRENTICE HAND Unavailable [phone] [facility] Primary Care Pr ovider Sharee Oliva RD Unavailable [phone] Kaykay Duarte HOME ORGANIZER Primary Care Provider [phone] Christiane Rodríguez MD Unavailable [phone] Luis A Escobedo MD Unavailable +[phone] Chely Fernandez PA-C Unavailable [phone] Jing Cadena BLOCK OPERATOR DOUGH MOLDER HAND Unavailable +[phone] Radha Lopez [facility] Unavailable +[phone] Luis A Escobedo MD Unavailable [phone] Geri Loza PAEddaC Unavailable [phone] Raina Patterson BLOCK OPERATOR STONECUTTER APPRENTICE HAND Unavailable [phone] Encounter Details Date Type Department Care Team (Late st Contact Info) Description 09/29/2022 [facility] [address] 4th [place] [address] Kang Griffiths Social History Tobacco [...] on filedocumented in this encounter Care Teams Business Excellence Leader Relationship Specialty Start Date End Date Clinic, [place] [place] [address] [place] [address] PCP - General 08/19/22 10/14/22 Kaykay Duarte, HOME ORGANIZER [address] [place] [address] PCP - General 10/15/22 Roderick Morelos MD [address] [place] [address] Cardiovascular Disease 02/03/22 Magno Wood MD [address] [place] [address] 858155 Otolaryngology 02/21/22 Sophie Ocasio AuD [address] [place] [address] 586695 Manager Restaurant Audiology 02/21/22 Henny Rosales, BLOCK OPERATOR STONECUTTER APPRENTICE HAND [address] [place] [address] Assigned Heart and Vascular Provider 08/09/[address] 909 [place], [place] 017675 Registered Dietitian Dietitian, Registered 09/02/22 Christiane Rodríguez MD 420 [facility] 396 [place], [place] 859165 Otolaryngology 11/12/22 Luis A Escobedo MD [address] [place] [address] 195 [place], [place] 072555 Assigned Surgical Provider 11/01/22 11/28/22 Chely Fernandez PA-C [address] [place] [address] 029535 Assigned Surgical Provider 11/29/22 02/06/23 Jing Cadena, BLOCK OPERATOR DOUGH MOLDER HAND 420 [facility] 450 [place], [place] 626125 Clinical Nurse Specialist Anesthesiology 01/15/23 Radha Lopez, [facility] [address] [place] [address] 258815 Pharmacist Pharmacist 01/16/23 Luis A Escobedo MD [address] [place] [address] 195 [place], [place] 212705 Assigned Surgical Provider 02/07/23 04/15/23 Geri Loza PA-C 909 [place] [address] Assigned Surgical Provider 04/16/23 Raina Patterson APRN STONECUTTER APPRENTICE HAND [address] [place] [address] Nurse Practitioner Cardiovascular Disease 05/11/23 documented as of this encounter
--- OUTSIDE RECORDS SUMMARY | 2024-01-11 23:13 | XMS_ITS | Encounter Summary ---
Author Organization [place] Address [address] [place] [address] 60[address] Care Team Providers Care Ladies Suit Operator Name Role Phone [facility] Primary Care Provider Unavailable Roderick Morelos MD Unavailable [phone] Roderick Morelos MD Unavailable [phone] Magno Wood MD Unavailable [phone] Sophie Ocasio AuD Unavailable [phone] Parth Ellis MD Unavailable +[phone] Roderick Morelos MD Unavailable [phone] Henny Rosales APRN CREDIT PORTFOLIO MANAGER Unavailable [phone] [facility] Pr ovider Sharee Oliva RD Unavailable [phone] Kaykay Duarte ACADEMIC DEAN Primary Care Provider [phone] Christiane Rodríguez MD Unavailable + [phone] Luis A Escobedo MD Unavailable +[phone] Chely Fernandez PA-C Unavailable +[phone] Jing Cadena COUNTER DISH CARRIER SUPERINTENDENT CONCRETE MIXING PLANT Unavailable + [phone] Radha Lopez [facility] Unavailable Luis A Escobedo MD Unavailable Geri Loza PA-C Unavailable Raina Patterson APRN CREDIT PORTFOLIO MANAGER Unavailable Encounter Details Date Type Department Care Team (Late st Contact Info) Description 04/08/2022 [facility] Medical Advice [facility] [place] [address] [facility] [address] [place] [phone] Suha Wade, RN Social History Tobacco Use [...] Coronavirus/COVID-19? No / Unsure 04/09/2022 6:32 AM PILE OPERATOR documented as of this encounter Plan of Treatment Not on file documented as of this encounter Visit Diagnoses Not on filedocumented in this encounter Care Teams Ladies Suit Operator Relationship Specialty Start Date End Date Ernestina Martini PCP - General Family Practice 10/12/19 08/18/22 [facility] [address] [place] [address] PCP - General 08/19/22 10/14/22 Kaykay Duarte ACADEMIC DE[place] [address] [place] [address] PCP - General 10/15/22 Roderick Morelos MD [address] [place] [address] Cardiovascular Disease 02/03/22 Roderick Morelos MD [address] [place] [address] Assigned Heart and Vascular Provider 02/15/22 07/18/22 Magno Wood MD [address] [place] [address] 25948 Otolaryngology 02/21/22 Sophie Ocasio AuD [address] [place] [address] 849385 Fleet Service Clerk Audiology 02/21/22 Parth Ellis MD [address] [place] 871125 Assigned Heart and Vascular Provider 07/19/22 07/25/22 Roderick Morelos MD [address] [place] [address] Assigned Heart and Vascular Provider 07/26/22 08/08/22 Henny Rosales, COUNTER DISH CARRIER CREDIT PORTFOLIO MANAGER [address] [place] [phone] Assigned Heart and Vascular Provider 08/09/22 Sharee Oliva, ÁNGEL [address] [place] [address] 670385 Registered Dietitian Dietitian, Registered 09/02/22 Christiane Rodríguez MD [address] [place] [address] 866965 Otolaryngology 11/12/22 Luis A Escobedo MD [address] 022245 Assigned Surgical Provider 11/01/22 11/28/22 Chely Fernandez PA-C 909 [place], [place] 109215 Assigned Surgical Provider 11/29/22 02/06/23 Jing Cadena APRN SUPERINTENDENT CONCRETE MIXING PLANT [address] 813735 Clinical Nurse Specialist Anesthesiology 01/15/23 Radha Lopez, [facility] [address] [place] [address] 010555 Pharmacist Pharmacist 01/16/23 Luis A Escobedo MD [address] [address] Assigned Surgical Provider 02/07/23 04/15/23 Geri Loza PA-C [address] [place] [address] Assigned Surgical Provider 04/16/23 Raina Patterson APRN CREDIT PORTFOLIO MANAGER [address] [place] 564055 Nurse Practitioner Cardiovascular Disease 05/11/23 documented as of this encounter
--- OUTSIDE RECORDS SUMMARY | 2024-01-11 23:13 | XMS_ITS | Encounter Summary ---
Author Organization [place] Address [address] [place] [address] 50669 Care Team Providers Care Stone Finisher Name Role Phone Roderick Morelos MD Unavailable [phone] Magno Wood MD Unavailable [phone] Sophie Ocasio Unavailable [phone] Henny Rosales VP PRODUCT MARKETING ECONOMIC SPECIALIST Unavailable [phone] [facility], [facility] Primary Care Pr ovider Sharee Oliva RD Unavailable [phone] Kaykay Duarte SUPERVISOR SPECIAL SERVICES Primary Care Provider [phone] Christiane Rodríguez MD Unavailable [phone] Luis A Escobedo MD Unavailable +[phone] Chely Fernandez PA-C Unavailable [phone] Jing Cadena VP PRODUCT MARKETING SALES LEDGER CLERK Unavailable +[phone] Radha Lopez [facility] Unavailable +[phone] Luis A Escobedo MD Unavailable [phone] Geri Loza PAEddaC Unavailable [phone] Raina Patterson VP PRODUCT MARKETING ECONOMIC SPECIALIST Unavailable [phone] Encounter Details Date Type Department Care Team (Late st Contact Info) Description 09/02/2022 MyC Medical Advice [facility] [address] 4th [place] [address] Geri Loza PA-C 909 [place], [place] 129045 Social History Tobacco Use Types Packs/Day Years [...] on filedocumented in this encounter Care Teams Stone Finisher Relationship Specialty Start Date End [place], [place] [address] [place] [address] PCP - General 08/19/22 10/14/22 Kaykay Duarte NP [address] [place] [address] [place] [id number] PCP - General 10/15/22 Roderick Morelos MD [address] [place], [place] 639445 Cardiovascular Disease 02/03/22 Magno Wood MD [address] [place] [address] 396 [place], [place] [phone] Otolaryngology 02/21/22 Sophie Ocasio AuD [address] [place] [address] 619825 Hot Car Charger Audiology 02/21/22 Henny Rosales APRN ECONOMIC SPECIALIST [address] [place] [address] Assigned Heart and Vascular Provider 08/09/[address] [place] [address] Registered Dietitian Dietitian, Registered 09/02/22 Christiane Rodríguez MD [address] [place] [address] 396 [place] [address] Otolaryngology 11/12/22 Luis A Escobedo MD [address] [place] [address] Assigned Surgical Provider 11/01/22 11/28/22 Chely Fernandez PA-C [address] [place] [address] 645795 Assigned Surgical Provider 11/29/22 02/06/23 Jing Cadena APRN SALES LEDGER CLERK [address] [place] [address] 450 [place] [address] Clinical Nurse Specialist Anesthesiology 01/15/23 Radha Lopez, [facility] [address] [place] [address] Pharmacist Pharmacist 01/16/23 Luis A Escobedo MD 420 [facility] 195 [place], [place] 353745 Assigned Surgical Provider 02/07/23 04/15/23 Geri Loza PA-C 909 [place], [place] 559295 Assigned Surgical Provider 04/16/23 Raina Patterson APRN ECONOMIC SPECIALIST [address] [place], [place] 456125 Nurse Practitioner Cardiovascular Disease 05/11/23 documented as of this encounter
--- OUTSIDE RECORDS SUMMARY | 2024-01-11 23:13 | XMS_ITS | Encounter Summary ---
Author Organization [place] Address [address] [place] [address] Care Team Providers Care Internet And E Business Project Manager Name Role Phone [facility] Primary Care Provider Unavailable Roderick Morelos MD Unavailable [phone] Roderick Morelos MD Unavailable [phone] Magno Wood MD Unavailable [phone] Sophie Ocasio AuD Unavailable +[phone] Parth Ellis MD Unavailable +[phone] Roderick Morelos MD Unavailable [phone] Henny Rosales APRN AN/SSN 2 4 OPERATOR Unavailable [phone] [facility] [place] [facility] Primary Care Pr ovider Sharee Oliva RD Unavailable [phone] Kaykay Duarte BLAST [employer] SUPERVISOR Primary Care Provider Christiane Rodríguez MD Unavailable + [phone] Luis A Escobedo MD Unavailable [phone] Chely Fernandez PA-C Unavailable +[phone] Jing Cadena SPORTS SPECIALIST POSTDOCTORAL SCHOLAR Unavailable + [phone] Radha Lopez [facility] Unavailable [phone] Luis A Escobedo MD Unavailable Geri Loza PA-C Unavailable [phone] Raina Patterson APRN AN/SSN 2 4 OPERATOR Unavailable [phone] Encounter Details Date Type Department Care Team (Late st Contact Info) Description 05/26/2022 MyC Medical Advice [facility] [address] 4th [place] [address] Jessi Mantilla LPN Social History [...] on filedocumented in this encounter Care Teams Internet And E Business Project Manager Relationship Specialty Start Date End Date Ernestina Martini PCP - General Family Practice 10/12/19 08/18/22 [facility], [place] [address] [place] [address] PCP - General 08/19/22 10/14/22 [place] [address] [place] [address] PCP - General 10/15/22 Roderick Morelos MD [address] [place] 970355 Cardiovascular Disease 02/03/22 Roderick Morelos MD [address] [place] [address] Assigned Heart and Vascular Provider 02/15/22 07/18/22 Magno Wood MD 420 [facility] 396 [place], [place] 308135 Otolaryngology 02/21/22 Sophie Ocasio AuD 909 [place], [place] 617825 Continuous Drier Operator Audiology 02/21/22 Parth Ellis MD [address] [place], [place] 549845 Assigned Heart and Vascular Provider 07/19/22 07/25/22 Roderick Morelos MD [address] [place] 184065 Assigned Heart and Vascular Provider 07/26/22 08/08/22 Henny Rosales APRN AN/SSN 2 [address] [place] [address] Assigned Heart and Vascular Provider 08/09/22 Sharee Oliva, ÁNGEL [address] [place] [address] Registered Dietitian Dietitian, Registered 09/02/22 Christiane Rodríguez MD 420 [facility] 396 [place], [place] 642625 Otolaryngology 11/12/22 Luis A Escobedo MD [address] [place] [address] 377925 Assigned Surgical Provider 11/01/22 11/28/22 Chely Fernandez PA-C 909 [place], [place] 509185 Assigned Surgical Provider 11/29/22 02/06/23 Jing Cadena APRN POSTDOCTORAL SCHOLAR 420 [facility] 450 [place] [address] Clinical Nurse Specialist Anesthesiology 01/15/23 Radha Lopez, [facility] [address] [place] [address] 414965 Pharmacist Pharmacist 01/16/23 Luis A Escobedo MD 420 [facility] 195 [place], [place] 146465 Assigned Surgical Provider 02/07/23 04/15/23 Geri Loza PA-C [address] [place] [address] 754735 Assigned Surgical Provider 04/16/23 Raina Patterson, GINA AN/SSN 2 4 OPERATOR [address] [place] 068765 Nurse Practitioner Cardiovascular Disease 05/11/23 documented as of this encounter
--- OUTSIDE RECORDS SUMMARY | 2024-01-11 23:13 | XMS_ITS | Encounter Summary ---
Author Organization [place] Address [address] [place] [address] 24601 Care Team Providers Care Policeman Name Role Phone Roderick Morelos MD Unavailable [phone] Magno Wood MD Unavailable [phone] Sophie Ocasio Unavailable [phone] Henny Rosales SOLARIS ADMINISTRATOR SHOE WORKER Unavailable [phone] [facility] Primary Care Pr ovider Sharee Oliva RD Unavailable [phone] Kaykay Duarte ORNAMENTAL METAL WORKER APPRENTICE Primary Care Provider [phone] Christiane Rodríguez MD Unavailable [phone] Luis A Escobedo MD Unavailable +[phone] Chely Fernandez PA-C Unavailable [phone] Jing Cadena SOLARIS ADMINISTRATOR OFFICE SERVICES ASSOCIATE Unavailable [phone] Radha Lopez [facility] Unavailable +[phone] Luis A Escobedo MD Unavailable [phone] Geri Loza PAEddaC Unavailable [phone] Raina Patterson SOLARIS ADMINISTRATOR SHOE WORKER Unavailable [phone] Encounter Details Date Type Department Care Team (Late st Contact Info) Description 09/09/2022 Telephone [facility] [place] [address] [place] [address] 4th [place] [address] Geri Loza PA-C 909 [place] [address] Social History Tobacco Use Types Packs/Day Years [...] Geri Gaytan had suggested Marquez. Please advise. [phone] okay to leave VM or send MyChart, patient isn't always able to answer when she's working documented in this encounter Plan of Treatment Not on file documented as of this encounter Visit Diagnoses Not on filedocumented in this encounter Care Teams Policeman Relationship Specialty Start [place], [place] [address] [place] [address] PCP - General 08/19/22 10/14/22 Kaykay Duarte ORNAMENTAL METAL WORKER APPRENTICE [address] [place] [address] PCP - General 10/15/22 Roderick Morelos MD [address] [place] [address] Cardiovascular Disease 02/03/22 Magno Wood MD [address] [place] [address] 396 [place] [address] Otolaryngology 02/21/22 Sophie Ocasio AuD [address] [place] [address] Fire Sprinkler Designer Audiology 02/21/22 Henny Rosales APRN SHOE WORKER [address] [place] [address] Assigned Heart and Vascular Provider 08/09/[address] [place] [address] 899985 Registered Dietitian Dietitian, Registered 09/02/22 Christiane Rodríguez MD [address] [place] [address] Otolaryngology 11/12/22 Luis A Escobedo MD [address] [place] [address] 175755 Assigned Surgical Provider 11/01/22 11/28/22 Chely Fernandez PA-C [address] [place] [address] 007585 Assigned Surgical Provider 11/29/22 02/06/23 Jing Cadena APRN OFFICE SERVICES ASSOCIATE 420 [facility] [address] [place], [place] 117725 Clinical Nurse Specialist Anesthesiology 01/15/23 Radha Lopez, [facility] 909 [place], [place] 319945 Pharmacist Pharmacist 01/16/23 Luis A Escobedo MD 420 [facility] [address] [place], [place] 574165 Assigned Surgical Provider 02/07/23 04/15/23 Geri Loza PA-C 909 [place], [place] 846765 Assigned Surgical Provider 04/16/23 Raina Patterson APRN SHOE WORKER [address] [place] 120785 Nurse Practitioner Cardiovascular Disease 05/11/23 documented as of this encounter
--- OUTSIDE RECORDS SUMMARY | 2024-01-11 23:13 | XMS_ITS | Encounter Summary ---
Author Organization [place] Address [address] [place] [address]142 Care Team Providers Care Travel Agent Name Role Phone Roderick Morelos MD Unavailable Magno Wood MD Unavailable [phone] Sophie Ocasio Unavailable [phone] Henny Rosales LINTING MACHINE OPERATOR CELL ROOM OPERATOR Unavailable [phone] [facility], [facility] Primary Care Pr ovider Sharee Oliva RD Unavailable [phone] Kaykay Duarte LEAD WEB APPLICATION DEVELOPER Primary Care Provider [phone] Christiane Rodríguez MD Unavailable [phone] Luis A Escobedo MD Unavailable +[phone] Chely Fernandez PA-C Unavailable [phone] iJng Cadena LINTING MACHINE OPERATOR CAD LIBRARIAN Unavailable [phone] Radha Lopez [facility] Unavailable +[phone] Luis A Escobedo MD Unavailable [phone] Geri Loza PAEddaC Unavailable [phone] Raina Patterson LINTING MACHINE OPERATOR CELL ROOM OPERATOR Unavailable [phone] Encounter Details Date Type Department Care Team (Late st Contact Info) Description 08/25/2022 Telephone [facility] [address] 4th [place] [address] Geri Loza PA-C 9 [place] [address] Social History Tobacco Use Types Packs/Day Years [...] on filedocumented in this encounter Care Teams Travel Agent Relationship Specialty Start Date End Date Clinic, [place] [id number] [place] [address] [phone] PCP - General 08/19/22 10/14/22 Kaykay Duarte, LEAD WEB APPLICATION DEVELOPER [address] [place] [address] PCP - General 10/15/22 Rodercik Morelos MD [address] [place], [place] 425885 Cardiovascular Disease 02/03/22 Magno Wood MD 420 [facility] 396 [place] [address] Otolaryngology 02/21/22 Sophie Ocasio AuD [address] [place], [place] 327805 Offensive Coordinator Audiology 02/21/22 Henny Rosales APRN CELL ROOM OPERATOR [address] [place] [address] Assigned Heart and Vascular Provider 08/09/[address] [place], [place] 313915 Registered Dietitian Dietitian, Registered 09/02/22 Christiane Rodríguez MD 420 [facility] 396 [place] [address] Otolaryngology 11/12/22 Luis A Escobedo MD 420 [facility] 195 [place], [place] 03382455 Assigned Surgical Provider 11/01/22 11/28/22 Chely Fernanedz PA-C [address] [place], [place] 063375 Assigned Surgical Provider 11/29/22 02/06/23 Jing Cadena APRN CAD LIBRARIAN 420 [facility] 450 [place] [address] Clinical Nurse Specialist Anesthesiology 01/15/23 Radha Lopez [facility] [address] [place] [address] 216515 Pharmacist Pharmacist 01/16/23 Luis A Escobedo MD 420 [facility] 195 [place], [place] 037295 Assigned Surgical Provider 02/07/23 04/15/23 Geri Loza PA-C [address] [place] [address] 698625 Assigned Surgical Provider 04/16/23 Raina Patterson APRN CELL ROOM OPERATOR [address] [facility] [address] [place] 323085 Nurse Practitioner Cardiovascular Disease 05/11/23 documented as of this encounter
--- OUTSIDE RECORDS SUMMARY | 2024-01-11 23:13 | XMS_ITS | Encounter Summary ---
Author Organization [place] Address [address] [place] [address] Care Team Providers Care Framing Carpenter Name Role Phone [facility] Primary Care Provider Unavailable Roderick Morelos MD Unavailable [phone] Roderick Morelos MD Unavailable [phone] Magno Wood MD Unavailable [phone] Sophie Ocasio AuD Unavailable [phone] Parth Ellis MD Unavailable [phone] Roderick Morelos MD Unavailable [phone] Henny Rosales APRN RIVET MAKER Unavailable [phone] [facility] Primary Care Pr ovider Sharee Oliva RD Unavailable [phone] Kaykay Duarte PRIMER SUPERVISOR Primary Care Provider Christiane Rodríguez MD Unavailable + [phone] Luis A Escobedo MD Unavailable [phone] Chely Fernandez PA-C Unavailable +[phone] Jing Cadena HISTORY CARD CLERK INTERNAL CONTROLS ANALYST Unavailable + [phone] Radha Lopez [facility] Unavailable [phone] Luis A Escobedo MD Unavailable [phone] Geri Loza PA-C Unavailable [phone] Raina Patterson APRN RIVET MAKER Unavailable Encounter Details Date Type Department Care Team (Late st Contact Info) Description 05/14/2022 [facility] Medical Advice [facility] [address] 4th [place] [address] Jessi Mantilla LPN Social History [...] on filedocumented in this encounter Care Teams Framing Carpenter Relationship Specialty Start Date End Date Ernestina Martini PCP - General Family Practice 10/12/19 08/18/22 [facility] [address] [place] [address] PCP - General 08/19/22 10/14/22 [place] [address] [place] [address] PCP - General 10/15/22 Roderick Morelos MD [address] [place] 813195 Cardiovascular Disease 02/03/22 Roderick Morelos MD [address] [place] [address] Assigned Heart and Vascular Provider 02/15/22 07/18/22 Magno Wood MD 420 [facility] 396 [place], [place] 043495 Otolaryngology 02/21/22 Sophie Ocasio AuD 909 [place], [place] 867715 Instructor Programmable Controllers Audiology 02/21/22 Parth Ellis MD [address] [place], [place] 0770[address] Assigned Heart and Vascular Provider 07/19/22 07/25/22 Roderick Morelos MD [address] [place] 773985 Assigned Heart and Vascular Provider 07/26/22 08/08/22 Henny Rosales APRN RIVET MAKER [address] [place] [address] Assigned Heart and Vascular Provider 08/09/22 Sharee Oliva, ÁNGEL [address] [place] [address] Registered Dietitian Dietitian, Registered 09/02/22 Christiane Rodríguez MD 420 [facility] 396 [place], [place] 350155 Otolaryngology 11/12/22 Luis A Escobedo MD [address] [place] [address] 539785 Assigned Surgical Provider 11/01/22 11/28/22 Chely Fernandez PA-C 909 [place], [place] 771175 Assigned Surgical Provider 11/29/22 02/06/23 Jing Cadena APRN INTERNAL CONTROLS ANALYST 420 [facility] 450 [place] [address] Clinical Nurse Specialist Anesthesiology 01/15/23 Radha Lopez, [facility] [address] [place] [address] 655095 Pharmacist Pharmacist 01/16/23 Luis A Escobedo MD 420 [facility] 195 [place], [place] 745625 Assigned Surgical Provider 02/07/23 04/15/23 Geri Loza PA-C [address] [place] [address] 490025 Assigned Surgical Provider 04/16/23 Raina Patterson, GINA RIVET MAKER [address] [place] 250685 Nurse Practitioner Cardiovascular Disease 05/11/23 documented as of this encounter
--- OUTSIDE RECORDS SUMMARY | 2024-01-11 23:13 | XMS_ITS | Encounter Summary ---
Author Organization [facility] Address [address] [place] [address] Care Team Providers Care Vinyl Top Installer Name Role Phone Roderick Morelos MD Unavailable [phone] Magno Wood MD Unavailable [phone] Sophie Ocasio Unavailable [phone] Henny Rosales MEAL ATTENDANT SEASONAL WAREHOUSE ASSOCIATE Unavailable [phone] Unavailable [phone] Kaykay Duarte CHIEF UNIT FORESTER Primary Care Provider [phone] Christiane Rodríguez MD Unavailable Luis A Escobedo MD Unavailable [phone] Chely FernandezC Unavailable [phone] Jing Cadena APRN SPECIAL EVENTS COORDINATOR Unavailable [phone] Radha Lopez [facility] Unavailable [phone] Luis A Escobedo MD Unavailable [phone] Geri LozaC Unavailable [phone] Raina Patterson APRN SEASONAL WAREHOUSE ASSOCIATE Unavailable [phone] Encounter Details Date Type Department Care Team (Late st Contact Info) Description 10/23/2022 External Order Results [facility] [address] [place] [address] Outside, Provider Class 3 severe obesity with [...] Vitamin A (10/23/2022 11:20 AM CDT) Pathologist [facility] Vitamin A (External) 0.82 0.30 - 1.20 [...] Vitamin B12 (10/23/2022 11:20 AM CDT) Pathologist [facility] Vitamin B12 (External) 294 213 - 816 pg/mL NON-INTERFACED (ONBASE SCANS) Blood BLOOD SPECIMEN / Unknown 10/23/2022 11:20 AM CDT Narrative [facility] - 10/24/2022 1:41 PM CDT Verified by Gisel Izaguirre on 10/24/2022. Geri Loza PA-C LAB - BLOOD ORDERAB LES [facility] NON-INTERFACED (ONBASE SCANS) * Ferritin (10/23/2022 11:20 AM CDT) Pathologist [facility] Ferritin (External) 88 9 - 204 ng/mL [...] - BLOOD ORDERAB LES Performing Organization Address City/[facility]/ZIP Co de Phone Number [facility] PFT NON-INTERFACED [...] BLOOD ORDERABL ES Performing Organization Address [facility]/ZIP Co de Phone Number [facility]FT NON-INTERFACED [...] BLOOD ORDERABL ES Performing Organization Address [facility]/ZIP Co de Phone Number [facility] PFT NON-INTERFACED [...] documented as of this encounter Care Teams Vinyl Top Installer Relationship Specialty [place] [address] [facility] [place] [address] PCP - General 10/15/22 Roderick Morelos MD [address] [place], [place] [address] Cardiovascular Disease 02/03/22 Magno Wood MD [address] [facility] [address] [place], [place] [address]335 Otolaryngology 02/21/22 Sophie Ocaiso AuD [address] [place], [place] 371315 Banana Carrier Audiology 02/21/22 Henny Rosales, MEAL ATTENDANT SEASONAL WAREHOUSE ASSOCIATE [address] [place] [address] Assigned Heart and Vascular Provider 08/09/[address] [place], [place] [address] Registered Dietitian Dietitian, Registered 09/02/22 Christiane Rodríguez MD [address] [facility] [address] [place], [place] 933[address] Otolaryngology 11/12/22 Luis A Escobedo MD [address] [place] [address] 195 [place], [place] 601565 Assigned Surgical Provider 11/01/22 11/28/22 Chely Fernandez PA-C [address] [place] [address] 474715 Assigned Surgical Provider 11/29/22 02/06/23 Jing Cadena, MEAL ATTENDANT SPECIAL EVENTS COORDINATOR [address] [facility] [address] [place] [address] Clinical Nurse Specialist Anesthesiology 01/15/23 Radha Lopez [facility] 9 [place], [place] 233545 Pharmacist Pharmacist 01/16/23 Luis A Escobedo MD [address] [facility] [address] [place], [place] [address]1985 Assigned Surgical Provider 02/07/23 04/15/23 Geri Loza PA-C [address] [place] [address] Assigned Surgical Provider 04/16/23 Raina Patterson APRN CNP [address] [facility] [address] [place] [address] Nurse Practitioner Cardiovascular Disease 05/11/23 documented as of this encounter
--- OUTSIDE RECORDS SUMMARY | 2024-01-11 23:13 | XMS_ITS | Encounter Summary ---
Author Organization [place] Address [address] [place] [address] Care Team Providers Care Validation Architect Name Role Phone Roderick Morelos MD Unavailable Magno Wood MD Unavailable Sophie Ocasio Unavailable [phone] Henny Rosales VIDEO PRODUCTION ASSISTANT BACKGROUND CHECK COORDINATOR Unavailable [phone] [facility] Primary Care Pr ovider Sharee Oliva RD Unavailable [phone] Kaykay Duarte PULP MILL TEAM LEADER Primary Care Provider [phone] Christiane Rodríguez MD Unavailable [phone] Luis A Escobedo MD Unavailable [phone] Chely Fernandez PA-C Unavailable [phone] Jing Cadena VIDEO PRODUCTION ASSISTANT [employer] Unavailable [phone] Radha Lopez [facility] Unavailable [phone] Luis A Escobedo MD Unavailable [phone] Geri Loza PAEddaC Unavailable [phone] Raina Patterson VIDEO PRODUCTION ASSISTANT BACKGROUND CHECK COORDINATOR Unavailable [phone] Encounter Details Date Type Department Care Team (Late st Contact Info) Description 09/15/2022 [facility] [address] 4[address] [place] [address] Kang Griffiths Social History Tobacco [...] on filedocumented in this encounter Care Teams Validation Architect Relationship Specialty Start Date End Date [place], [place] [address] [place] [address] PCP - General 08/19/22 10/14/22 Kaykay Duarte, PULP MILL TEAM LEADER [address] [place] [address] PCP - General 10/15/22 Roderick Morelos MD [address] [place], [place] [address] Cardiovascular Disease 02/03/22 Magno Wood MD [address] [place] [address] 599635 Otolaryngology 02/21/22 Sophie Ocasio AuD [address] [place] [address] 481735 Cardroom Worker Audiology 02/21/22 Henny Rosales, VIDEO PRODUCTION ASSISTANT BACKGROUND CHECK COORDINATOR [address] [place] [address] Assigned Heart and Vascular Provider 08/09/[address] 9 [place] [address] Registered Dietitian Dietitian, Registered 09/02/22 Christiane Rodríguez MD 420 [facility] 396 [place], [place] [address] Otolaryngology 11/12/22 Luis A Escobedo MD [address] [place] [address] 195 [place], [place] 563785 Assigned Surgical Provider 11/01/22 11/28/22 Chely Fernandez PA-C [address] [place] [address] 584005 Assigned Surgical Provider 11/29/22 02/06/23 Jign Cadena, VIDEO PRODUCTION ASSISTANT [employer] [facility] [address] [place] [address] 450 [place], [place] 0424[address] Clinical Nurse Specialist Anesthesiology 01/15/23 Radha Lopez, [facility] [address] [place] [address] 660165 Pharmacist Pharmacist 01/16/23 Luis A Escobedo MD [address] [place] [address] 195 [place], [place] 668015 Assigned Surgical Provider 02/07/23 04/15/23 Geri Loza PA-C [address] [place] [address] Assigned Surgical Provider 04/16/23 Raina Patterson APRN BACKGROUND CHECK COORDINATOR [address] [place] [address] Nurse Practitioner Cardiovascular Disease 05/11/23 documented as of this encounter
--- OUTSIDE RECORDS SUMMARY | 2024-01-11 23:13 | XMS_ITS | Encounter Summary ---
Author Organization [place] Address [address] [place] [address] Care Team Providers Care Wad Impregnator Name Role Phone Roderick Morelos MD Unavailable [phone] Magno Wood MD Unavailable [phone] Sophie Ocasio Unavailable [phone] Henny Rosales AIRCRAFT BODY REPAIRER EMERGENCY ROOM DOCTOR Unavailable [phone] Unavailable [phone] Kaykay Duarte POT ROOM SUPERVISOR Primary Care Provider [phone] Christiane Rodríguez MD Unavailable Luis A Escobedo MD Unavailable [phone] Chely FernandezC Unavailable [phone] Jing Cadena APRN TELEMARKETING [employer] Unavailable Radha Lopez [facility] Unavailable [phone] Luis A Escobedo MD Unavailable [phone] Geri LozaC Unavailable [phone] Raina Patterson APRN EMERGENCY ROOM DOCTOR Unavailable [phone] Encounter Details Date Type Department Care Team (Late st Contact Info) Description 10/23/2022 External Order Results [facility] [address] [place] [address] Outside, Provider Class 3 severe obesity with [...] documented as of this encounter Care Teams Wad Impregnator Relationship Specialty [place] [address] [place] [address] PCP - General 10/15/22 Roderick Morelos MD [address] [place] 705875 Cardiovascular Disease 02/03/22 Magno Wood MD 420 [facility] 396 [place], [place] [address] Otolaryngology 02/21/22 Sophie Ocasio AuD [address] [place], [place] [address] Commodity Merchant Audiology 02/21/22 Henny Rosales APRN EMERGENCY ROOM DOCTOR [address] [place] [phone] Assigned Heart and Vascular Provider 08/09/[address] [place] [address]015 Registered Dietitian Dietitian, Registered 09/02/22 Christiane Rodríguez MD [address] [place] [address] 396 [place], [place] [address] Otolaryngology 11/12/22 Luis A Escobedo MD [address] [place] [address]275 Assigned Surgical Provider 11/01/22 11/28/22 Chely Fernandez PA-C [address] [place] [address] 665675 Assigned Surgical Provider 11/29/22 02/06/23 Jing Cadena, AIRCRAFT BODY REPAIRER TELEMARKETING [employer] [address] [place] [address]505 Clinical Nurse Specialist Anesthesiology 01/15/23 Radha Lopez, [facility] [address] [place] [address] 310815 Pharmacist Pharmacist 01/16/23 Luis A Escobedo MD [address] [place] [address] 091125 Assigned Surgical Provider 02/07/23 04/15/23 Geri Loza PA-C [address] [place] [address] 658115 Assigned Surgical Provider 04/16/23 Raina Patterson APRN [facility] [address] [place] [address] Nurse Practitioner Cardiovascular Disease 05/11/23 documented as of this encounter
--- OUTSIDE RECORDS SUMMARY | 2024-01-11 23:14 | XMS_ITS | Clinical Summary ---
Author Organization [employer] Address [address] [place] [address] Care Team Providers Care Auto Winder Name Role Phone Kaykay Duarte APRN, LEAH Primary Care Provid er Source Comments You are receiving this document as you are listed as the primary care provider,follow-up provider, or the patient has been referred to you for consultation.This is in compliance with the Medicare and[facility] Clinic [facility] Hospitalcaid EHR Incentive Program,which states Providers who transition their patient to another setting of careor provider of care or refers their patient to another provider of care shouldprovide summary care record for each transition of care or referral. Touchbase Allergies No known active allergies Medications Medication [...] use. 1 Each 3 02/20/2022 Active cyanocobalamin (VCKDVDJL12) 1000 MCG/ML injection Inject 1,000 mcg subcutaneously [...] (01/04/2021): Added automatically from request for surgery [id number] S/P laparoscopic sleeve gastrectomy 08/09/2020 Overview (08/09/2020): [...] 35 RDI 36 Lowest O2 Sat: 87% [facility] Cervical high risk HPV (human papillomavirus) te st positive 08/05/2017 Overview (06/01/2023): [facility] Review: History: 07/2017: NILM HPV+ (18) [...] Notes/Orders Centralized Outreach [address] [place] [address] [address] Mikayla Sweeney MD Type 2 diabetes mellitus without complication, without long-term current use of insulin (HRC) from Last 3 Months Immunizations Name Administration Dates Next Due Influenza IIV4 (Quadrivalent ) 0.5mL (66645) 02/08/2021,03/31/2019,04/14/2017 PCV20 ([id number]) 05/20/2023 PPSV23 (Pneumovax) 04/14/2017 Pfizer Monovalent 12+ [...] (265 lb 9.6 oz) 05/20/2023 2:19 PM INDUSTRIAL RELATIONS ANALYST Height 167.6 cm (5' 6) 09/11/2022 4:11 [...] this topic Medical Devices Implanted Type Area Supervisor Pre Wave Device Identifier Shelf Expiration Date Model / Serial / Lot Kit Leidy Burris Sys - [id number] Implanted:Qty: 1 on 02/19/2021 by Zoila Shaikh MBBS at [facility] DEVICE N/A: PELVIS [employer] 12/05/2021 [id number] / [id number] / [id number] Description:Polypropylene me sh- per Mag[employer] Ent Gyrus Virk Torp-05/20/2005 Implanted: 006 (Quantity not on file) ENT EAR [id number] / / [id number] Description:Devices that are made from non-metallic materials (i.e. Implants and Ventilation Tubes made from DAVIS, Plasti-pore, Silicone, Fluoroplastic) are inherently non-conducting and non-magnetic and pose no known hazards in all MR environments and therefore are considered MR Safe. - Per [facility] Procedures Procedure Name Priority Date/Time Associated Diagnosis Comments PAP TEST Routine 04/29/2023 9:58 AM INDUSTRIAL RELATIONS ANALYST Screening for cervical cancer MM MAMMOGRAM SCREENING BILAT W 3D SCOT W CAD Routine 04/02/2023 8:58 AM INDUSTRIAL RELATIONS ANALYST HGB A1C Routine 12/23/2022 11:40 AM CDT [...] Results * PAP Test (04/29/2023 9:58 AM INDUSTRIAL RELATIONS ANALYST) Case Report Pap ? Case: [id number] ? Authorizing Provider: ??Elizabeth Herndon APRN, ?Collected: ? 04/29/2023 0958 ? CNM ? Ordering Location: ? [facility] ? Received: ?04/29/2023 1008 ? Services-PROMOTION OFFICER ? First Screen: ?Nault, Diana E, CT (ASCP) ? Specimen: ?Pap Test, Routine, Cervix/Endocervix ? 05/21/2023 1:19 PM INDUSTRIAL RELATIONS ANALYST [facility] Pap Specimen Adequacy Satisfactory for evaluation, endocervical/kerr sformation zone component present. 05/21/2023 1:19 PM INDUSTRIAL RELATIONS ANALYST [facility] Pap Interpretation (NILM) Negative for intraepithelial lesion or malignancy. 05/21/2023 1:19 PM INDUSTRIAL RELATIONS ANALYST [facility] Pap Disclaimer The Pap test is a screening test to aid in the detection of cervical and vaginal cancers and their precursor lesions. It is not a diagnostic procedure and should not be used as the sole means of detecting malignancy. Both false-positive and false-negative results may occur. 05/21/2023 1:19 PM INDUSTRIAL RELATIONS ANALYST [facility] Gross Description The specimen is received in SurePath fixative and properly labeled. 1 Pap-stained SurePath slide is prepared. 05/21/2023 1:19 PM INDUSTRIAL RELATIONS ANALYST [facility] Embedded Images 1:19 PM INDUSTRIAL RELATIONS ANALYST [facility] Other Specimen Type ENTIRE ENDOCERVIX / Unknown 04/29/2023 9:58 AM INDUSTRIAL RELATIONS ANALYST 04/29/2023 10:08 AM INDUSTRIAL RELATIONS ANALYST Comment:LMP: No LMP recorded . (Menstrual status: IUD). Elizabeth Herndon APRN, CNM LAB PATHOLOGY Performing Organization Address City/State/[facility] de Phone Number [facility] [address] * MM Mammogram Screening Bilat W 3D Scot W CAD (04/02/2023 8:58 AM INDUSTRIAL RELATIONS ANALYST) Anatomical Region Laterality Modality Breast Bilateral Mammography Impressions 04/02/2023 10:15 AM INDUSTRIAL RELATIONS ANALYST : ACR BI-RADS Category 1: Negative RECOMMENDATION: Follow Up Imaging in 12 months - Bilateral The provided family history indicates that the patient might be at a high lifetime risk of breast cancer. Consider a formal risk assessment if not previously performed. The results and recommendations of this examination will be communicated to the patient. Narrative 04/02/2023 10:15 AM INDUSTRIAL RELATIONS ANALYST MM MAMMOGRAM SCREENING BILAT W 3D SCOT [...] radiographic evidence of malignancy. ?? Kaykay Duarte LEAD BUSINESS SYSTEMS ANALYST, TAXI CAB DRIVER RAD CARLOS * (ABNORMAL) HgbA1c - Collect in Lab (12/23/2022 11:40 AM CDT) Hemoglobin A1C (Rapid) 6.4(H) <=5.6 % 12/23/2022 1:46 PM CDT [facility] Estimated Average Glucose (Calc) 137 < 117 mg/dL 12/23/2022 1:46 PM T [facility] Comment:Estimated average gl ucose (eAG) converts A1c into glucose units (mg/dL) and estimates average glucose over the past approximately 3 months. The eAG reference interval (<117 mg/dL) corresponds to an A1c of <5.7%. Blood Venipuncture / Unknown 12/23/2022 11:40 AM CDT 12/23/2022 11:43 AM CDT Narrative [facility] - 12/23/2022 1:46 PM CDT For [...] for further direction. Mikayla Sweeney MD LAB_1 [facility] [address] [place] [address], [facility] [phone] * Endoscopy, colon, diagnostic (11/20/2022 7:03 AM [...] saturations were ? monitored continuously. The ? [id number] was introduced through ? the anus and [...] the initial medication ? administration until the trailer assembler assists with ? initial maneuvers (biopsy / [...] Procedure Code(s): ? --- Professional --- ? 71454, Colonoscopy, flexible; ? diagnostic, including collection of ? specimen(s) by brushing or washing, ? when performed (separate procedure) ? 57929, Moderate sedation; each ? additional 15 minutes [...] (additional time may ? be reported with [address], as ? appropriate) Diagnosis Code(s): ? --- Professional --- ? Z12.11, Encounter for screening for ? malignant neoplasm of colon ? K64.9, Unspecified hemorrhoids CPT copyright 2020 [employer]. All rights reserved. The codes documented in this report are preliminary and upon hospital coder review may be revised to meet [...] and oxygen saturations were monitored continuously. The [id number] was introduced through the anus and advanced [...] from the initial medication administration until the trailer assembler assists with initial maneuvers (biopsy / polypectomy / etc.), or if no maneuvers are performed, until the endoscopist leaves the room. Impression: - The examined portion of the ileum was normal. - The entire examined colon is normal. - Hemorrhoids. - No specimens collected. Recommendation: - Repeat colonoscopy in 10 years for screening purposes. Procedure Code(s): --- Professional --- 04399, Colonoscopy, flexible; diagnostic, including collection of specimen(s) by brushing or washing, when performed (separate procedure) 28792, Moderate sedation; each additional 15 minutes intraservice time G0500, Moderate sedation services provided by the same physician or other qualified health home health care physician performing a gastrointestinal endoscopic service that sedation supports, requiring the presence of an independent trained observer to assist in the monitoring of the patient's level of consciousness and physiological status; initial 15 minutes of intra-service time; patient age 5 years or older (additional time may be reported with 43433, as appropriate) Diagnosis Code(s): --- Professional --- Z12.11, Encounter for screening for malignant neoplasm of colon K64.9, Unspecified hemorrhoids CPT copyright 2020 [employer]. All rights reserved. The codes documented in this report are preliminary and upon hospital coder review may be revised to meet current compliance requirements. Nahomy Latham, 11/20/2022 8:02:54 AM This document has been electronically signed. Number of Addenda: 0 Note Initiated On: 11/20/2022 7:03 AM Endoscopy Report Elizabeth Herndon LEAD BUSINESS SYSTEMS ANALYST, CNM ET GI PROCEDUR E ORDERABLES * (ABNORMAL) Lipid Panel and Direct LDL(If Needed) (10/23/2022 11:20 AM CDT) Cholesterol 322(H) 0 - 199 mg/dL 10/23/2022 1:00 PM T [facility] Triglyceride 205(H) <=149 mg/dL 10/23/2022 1:00 PM [facility] HDL Cholesterol 46 >=40 mg/dL 3 1:00 PM [facility] LDL, Calculated 235(H) <130 mg/dL 3 1:00 PM [facility] Non HDL Chol, Calculated 276(H) <=159 mg/dL 10/23/2022 1:00 PM [facility] Cholesterol/HDL Ratio 7.0 10/23/2022 1:00 PM [facility] Hours Fasting 0 10/23/2022 1:00 PM [facility] Blood Venipuncture / Unknown 10/23/2022 11:20 AM CDT 10/23/2022 11:39 AM CDT Mikayla Sweeney MD LAB_1 [facility] [address] [place] [address] [phone] * (ABNORMAL) Comp Metabolic Panel (10/23/2022 11:20 AM CDT) Sodium 139 136 - 145 mmol/L 10/23/2022 1:00 PM T [facility] Potassium 4.3 3.5 - 5.1 mmol/L 10/23/2022 1:00 PM [facility] Chloride 105 98 - 109 mmol/L 10/23/2022 1:00 PM [facility] CO2 24 20 - 29 mmol/L 10/23/2022 1:00 PM [facility] Anion Gap 10 7 - 16 mmol/L 10/23/2022 1:00 PM [facility] Calcium 9.4 8.4 - 10.4 mg/dL 10/23/2022 1:00 PM [facility] BUN 17 7 - 26 mg/dL 10/23/2022 1:00 PM [facility] Creatinine 0.90 0.55 - 1.02 mg/dL 10/23/2022 1:00 PM [facility] Alkaline Phosphatase 73 40 - 150 U/L 10/23/2022 1:00 PM [facility] AST (SGOT) 16 10 - 40 U/L 10/23/2022 1:00 PM [facility] ALT (SGPT) 21 <=55 U/L 10/23/2022 1:00 PM [facility] Bilirubin, Total 0.4 0.2 - 1.2 mg/dL 10/23/2022 1:00 PM [facility] Protein, Total 7.0 6.4 - 8.3 g/dL 10/23/2022 1:00 PM [facility] Albumin 3.8 3.5 - 5.0 g/dL 10/23/2022 1:00 PM [facility] Glucose 123(H) 70 - 100 mg/dL 10/23/2022 1:00 PM [facility] Comment:The given reference range is for the fasting state. Non-fasting reference range for glucose is 70 - 180 mg/dL. Hours Fasting 0 10/23/2022 1:00 PM [facility] GFR, Estimated >60 >60 mL/min/1.7 3m2 10/23/2022 1:00 PM [facility] Blood Venipuncture / Unknown 10/23/2022 11:20 AM CDT 10/23/2022 11:39 AM [facility] Geri Loza PA-C LAB_1 [facility] [address] [place] [address], [facility] [phone] * Albumin/Creatinine Ratio,Random Urine (08/20/2022 8:36 AM CDT) Pathologist [facility] Albumin/Creati nine Ratio, Urine, Random 10 <30 mg/g 08/20/2022 10:58 AM CDT [facility] Albumin, Urine, Random 18.1 mg/L 08/20/2022 10:58 AM CDT [facility] Creatinine, Urine, Random 182 >20 mg/dL mg/dL 08/20/2022 10:58 AM CDT [facility] Urine Non-blood Collection / Unknown 08/20/2022 8:36 AM CDT 08/20/2022 9:30 AM CDT Mikayla Sweeney MD LAB_1 [facility] [address] [place] [address] [phone] * Hepatitis C Antibody, with Reflex (09/13/2021 11:05 AM CDT) [facility] Hepatitis C Antibody Negative (Non Reactive) Negative (Non Reactive) 09/13/2021 4:31 PM CDT [facility] Comment:Antibodies to HCV no t detected. Does not exclude the possiblity of exposure to HCV. Blood Venipuncture / Unknown 09/13/2021 11:05 AM CDT 09/13/2021 11:16 AM CDT Kaykay Duarte APRN, LEAH LAB_1 [facility] [address] [place], [place] [address] [place] [address] * HIV 1/2 Ag/Ab 4th Generation (06/27/2020 8:04 AM CDT) [facility] HIV 1/2 Antigen/Antib sherry (4th generation) Negative (Non Reactive) Negative (Non Reactive) 06/27/2020 12:45 PM CDT [facility] Comment:HIV-1 p24 Antigen an d HIV-1/HIV-2 Antibody not detected Blood Venipuncture / Unknown 06/27/2020 8:04 AM CDT 06/27/2020 8:09 AM CDT Kaykay Duarte APRN, CNP LAB_1 [facility] [address] [place] [address], [facility] from Last 3 Months or Most Recently Relevant to Health Maintenance Advance Directives * Full Code (Latest Code Status on File) Date Activated Date Inactivated Comments 08/09/2020 4:04 PM 08/10/2020 1:55 PM Care Teams Auto Winder Relationship Specialty Start Date End Date Kaykay Duarte APRN, CNP [address] [place] [address] PCP - General Nurse Practitioner 10/25/21
--- OUTSIDE RECORDS SUMMARY | 2024-01-11 23:14 | XMS_ITS | Encounter Summary ---
Author Organization [employer] Address [address] [place] [address] Care Team Providers Care Manager Training And Development Name Role Phone Barrington Agudelo PA-C Primary Care Provider + [phone] Magno Wood MD Unavailable [place] Jovanna [place] Primary Care Provider Unavailable Parth Ellis MD Unavailable +[phone] Tati Ayala MD Unavailable +[phone] Khris Butt MD Unavailable +[phone] MorelosRoderick nunes MD Unavailable +[phone] Roderick Morelos MD Unavailable Magno Wood MD Unavailable +[phone] Sophie Ocasio Unavailable +[phone] Parth Ellis MD Unavailable +[phone] MorelosRoderick nunes MD Unavailable +[phone] Henny Rosales APRN TWISTER TENDER Unavailable +[phone] [facility] Pr ovider Sharee Oliva RD Unavailable +[phone] Kaykay Duarte ORACLE ETL DEVELOPER Primary Care Provider [phone] Christiane Rodríguez MD Unavailable +[phone] Luis A Escobedo MD Unavailable + [phone] Chely Fernandez PA-C Unavailable +[phone] Cadena Jing Susie FUENTES MANAGER NON PROFIT Unavailable + [phone] Radha Lopez [facility] Unavailable +[phone] Luis A Escobedo MD Unavailable +[phone] Geri Loza PA-C Unavailable +[phone] Raina Patterson GINA TWISTER TENDER Unavailable +[phone] Encounter Details Date Type Department Care Team (Late st Contact Info) Description 08/21/2011 Office Visit-[facility] Heart [address] [place] [phone] Dane Rosa MD Social History Tobacco Use [...] Mother - Age 34, cancer-breast; Half-Brother - [place]; Sister 1 - CAD; SOCIAL HISTORY Alcohol [...] Out COVID-19 03/19/2020 03/19/2020 03/19/2020 6:22 PM RETAIL BUSINESS ANALYST COVID-19 03/19/2020 03/19/2020 04/09/2020 11:3 9 PM RETAIL BUSINESS ANALYST Rule Out COVID-19 06/19/2021 06/19/2021 06/19/2021 1:37 AM CDT Rule Out COVID-19 10/29/2021 10/29/2021 10/29/2021 1:07 AM CDT documented as of this encounter Care Teams Manager Training And Development Relationship Specialty Start Date End Date Barrington Agudelo PA-C [facility] [address] [id number] PCP - General 05/04/12 10/11/19 Ernestina Martini [address] [facility] 396 [place] [address] PCP - General Family Practice 10/12/19 08/18/22 [facility] [address] [facility] [place] [address] PCP - General 08/19/22 10/14/22 [place] [address] [employer] [place] [address] PCP - General 10/15/22 Magno Wood MD [address] [facility] 396 [place], [place] 036435 Otolaryngology 05/29/15 08/02/17 Parth Ellis MD [address] [place] 583015 Assigned Heart and Vascular Provider 01/13/20 12/13/21 Tati Ayala MD [address] [facility] 200 [place], [place] 854410 Assigned Endocrinology Provider 01/13/20 12/29/20 Khris Butt MD [address] [place] 488115 Assigned Heart and Vascular Provider 12/14/21 02/14/22 Roderick Morelos MD [address] [place] 973615 Cardiovascular Disease 02/03/22 Roderick Morelos MD [address] [place] 716345 Assigned Heart and Vascular Provider 02/15/22 07/18/22 Magno Wood MD [address] [place] [address] 065195 Otolaryngology 02/21/22 Sophie Ocasio AuD [address] [place] [address] 482015 Chicle Grinder Feeder Audiology 02/21/22 Parth Ellis MD [address] [place], [place] 0188[address] Assigned Heart and Vascular Provider 07/19/22 07/25/22 Roderick Morelos MD [address] [place], [place] 205775 Assigned Heart and Vascular Provider 07/26/22 08/08/22 Henny Rosales APRN TWISTER TENDER [address] [place] [phone] Assigned Heart and Vascular Provider 08/09/22 Sharee Oliva, ÁNGEL [address] [place] [address]447 Registered Dietitian Dietitian, Registered 09/02/22 Christiane Rodríguez MD [address] [place] [address] 326105 Otolaryngology 11/12/22 Luis A Escobedo MD [address] [place] [address] 89878 Assigned Surgical Provider 11/01/22 11/28/22 Chely Fernandez PA-C 909 [place] [address] Assigned Surgical Provider 11/29/22 02/06/23 Jing Cadena APRN MANAGER NON PROFIT [address] [facility] 450 [place], [place] 532485 Clinical Nurse Specialist Anesthesiology 01/15/23 Radha Lopez [facility] [address] [place] [address] 980865 Pharmacist Pharmacist 01/16/23 Luis A Escobedo MD [address] [place] [address] 195 [place] [address] Assigned Surgical Provider 02/07/23 04/15/23 Geri Loza PA-C [address] [place] [address] Assigned Surgical Provider 04/16/23 Raina Patterson APRN TWISTER TENDER [address] [facility] [address] [place] 416455 Nurse Practitioner Cardiovascular Disease 05/11/23 documented as of this encounter
--- OUTSIDE RECORDS SUMMARY | 2024-01-11 23:14 | XMS_ITS | Encounter Summary ---
Author Organization [facility] Address [address] [place] [address] Care Team Providers Care Director Staffing Name Role Phone Edda Agudelo PA-C Primary Care Provider + [phone] Magno Wood MD Unavailable +[phone] [place] Jovanna [place] Primary Care Provider Unavailable Parth Ellis MD Unavailable +[phone] Tati Ayala MD Unavailable +[phone] Khris Butt MD Unavailable +[phone] MorelosRoderick nunes MD Unavailable +[phone] Roderick Morelos MD Unavailable +[phone] Magno Wood MD Unavailable +[phone] Sophie Ocasio Unavailable +[phone] Parth Ellis MD Unavailable +[phone] MorelosRoderick nunes MD Unavailable +[phone] Henny Rosales APRN SEA FOAM KISS MAKER Unavailable +[phone] [facility] Primary Care Pr ovider Sharee Oliva RD Unavailable +[phone] Kaykay Duarte FOUNDRY HAND Primary Care Provider [phone] Christiane Rodríguez MD Unavailable +[phone] Luis A Escobedo MD Unavailable + [phone] Chely Fernandez PA-C Unavailable +[phone] Jing Cadena APRN PAVER OPERATOR Unavailable + [phone] Radha Lopez [facility] Unavailable +[phone] Luis A Escobedo MD Unavailable +[phone] Geri Loza PA-C Unavailable +[phone] Yesenia Raina FUENTES SEA FOAM KISS MAKER Unavailable +[phone] Encounter Details Date Type Department Care Team (Late st Contact Info) Description 01/25/2004 Office Visit-[facility] Heart [place] [id number] [place] [address] Unknown, DoctorMD Social History Tobacco [...] [place] Referring [facility] CURRENT DIAGNOSES 1. - Shortness [...] lives with and children; Place of - [place]; Hours Worked - 30 hours per week; [...] COVID-19 03/19/2020 03/19/2020 03/19/2020 6:22 PM METAL PLATER COVID-19 03/19/2020 03/19/2020 04/09/2020 11:3 9 PM METAL PLATER Rule Out COVID-19 06/19/2021 06/19/2021 06/19/2021 1:37 AM CDT Rule Out COVID-19 10/29/2021 10/29/2021 10/29/2021 1:07 AM CDT documented as of this encounter Care Teams Director Staffing Relationship Specialty Start Date End Date Edda Agudelo PA-C [facility] [address] [place] 116038 PCP - General 05/04/12 10/11/19 Ernestina Martini 420 [facility] 396 [place] [address] PCP - General Family Practice 10/12/19 08/18/22 [place] [address] [facility] [place] [address] PCP - General 08/19/22 10/14/22 [place] [address] [facility] [place] [address] PCP - General 10/15/22 Magno Wood MD [address] [facility] 396 [place], [place] 767575 Otolaryngology 05/29/15 08/02/17 Parth Ellis MD [address] [place] 633675 Assigned Heart and Vascular Provider 01/13/20 12/13/21 Tati Ayala MD [address] [place] 200 [place], [place] 7[address]000 Assigned Endocrinology Provider 01/13/20 12/29/20 Khris Butt MD [address] [address] [place] 755705 Assigned Heart and Vascular Provider 12/14/21 02/14/22 Roderick Morelos MD [address] [place] 052035 Cardiovascular Disease 02/03/22 Roderick Morelos MD [address] [place] [address] Assigned Heart and Vascular Provider 02/15/22 07/18/22 Magno Wood MD [address] 731395 Otolaryngology 02/21/22 Sophie Ocasio AuD [address] [place] [address] 271535 Cloth Bale Header Audiology 02/21/22 Parth Ellis MD [address] [place], [place] 123485 Assigned Heart and Vascular Provider 07/19/22 07/25/22 Roderick Morelos MD [address] [place], [place] 994345 Assigned Heart and Vascular Provider 07/26/22 08/08/22 Henny Rosales APRN SEA FOAM KISS MAKER [address] [place] [address] Assigned Heart and Vascular Provider 08/09/[address] [place] [address] 623565 Registered Dietitian Dietitian, Registered 09/02/22 Christiane Rodríguez MD [address] [place] [address] 633495 Otolaryngology 11/12/22 Luis A Escobedo MD [address] [place] [address] 205075 Assigned Surgical Provider 11/01/22 11/28/22 Chely Fernandez PA-C 9 [place], [place] 879145 Assigned Surgical Provider 11/29/22 02/06/23 Jing Cadena APRN PAVER OPERATOR 420 [facility] 450 [place], [place] 240835 Clinical Nurse Specialist Anesthesiology 01/15/23 Radha Lopez, [facility] [address] [place] [address] 117685 Pharmacist Pharmacist 01/16/23 Luis A Escobedo MD 420 [facility] 195 [place], [place] 751085 Assigned Surgical Provider 02/07/23 04/15/23 Geri Loza PA-C [address] [place] [address] 469305 Assigned Surgical Provider 04/16/23 Raina Patterson APRN SEA FOAM KISS MAKER [address] [facility] [address] [place], [place] 179565 Nurse Practitioner Cardiovascular Disease 05/11/23 documented as of this encounter
--- OUTSIDE RECORDS SUMMARY | 2024-01-11 23:14 | XMS_ITS | Encounter Summary ---
Author Organization [place] Address [address] [place] [address] Care Team Providers Care Book Cleaner Name Role Phone Edda Agudelo PA-C Primary Care Provider + [phone] Magno Wood MD Unavailable [phone] [place] Jovanna [place] Primary Care Provider Unavailable Parth Ellis MD Unavailable +[phone] Tati Ayala MD Unavailable +[phone] Khris Butt MD Unavailable +[phone] MorelosRoderick nunes MD Unavailable +[phone] Roderick Morelos MD Unavailable +[phone] Magno Wood MD Unavailable +[phone] Sophie Ocasio Unavailable +[phone] Parth Ellis MD Unavailable +[phone] MorelosRoderick nunes MD Unavailable +[phone] Henny Rosales APRN CHILD CARE CENTRE MANAGER Unavailable +[phone] [facility] Primary Care Pr ovider Sharee Oliva RD Unavailable +[phone] Kaykay Duarte RESPIRATORY CARE SPECIALIST Primary Care Provider [phone] Christiane Rodríguez MD Unavailable +[phone] Luis A Escobedo MD Unavailable + [phone] Chely Fernandez PA-C Unavailable +[phone] Jing Cadena APRN CEO ZIFF DAVIS Unavailable + [phone] Radha Lopez Marte [facility] Unavailable +[phone] Luis A Escobedo MD Unavailable + [phone] Geri Loza PA-C Unavailable +[phone] Raina Patterson GINA CHILD CARE CENTRE MANAGER Unavailable +[phone] Encounter Details Date Type Department Care Team (Late st Contact Info) Description 10/20/2001 Office Visit-[facility] Heart [address] [place] [address] Unknown, DoctorMD Social History Tobacco [...] TODAYS ORDERS 1. Event Recorder Today Santiago Cma M.D. Document electronically signed by : Santiago Cam M.D. Date : 01/30/2004 Time : 3:21:53 PM documented in this encounter Plan of Treatment Not on file documented as of this encounter Visit Diagnoses Not on filedocumented in this encounter Additional Health Concerns Infection Onset Date Last Indicated Resolved Time Rule Out COVID-19 03/19/2020 03/19/2020 03/19/2020 6:22 PM ADULT CAREGIVER COVID-19 03/19/2020 03/19/2020 04/09/2020 11:3 9 PM ADULT CAREGIVER Rule Out COVID-19 06/19/2021 06/19/2021 06/19/2021 1:37 AM CDT Rule Out COVID-19 10/29/2021 10/29/2021 10/29/2021 1:07 AM CDT documented as of this encounter Care Teams Book Cleaner Relationship Specialty Start Date End Date Edda Agudelo PA-C [facility] [address] [address] PCP - General 05/04/12 10/11/19 Sheila [place] [address] [address] PCP - General Family Practice 10/12/19 08/18/22 [facility] [address] [place], [place] 677457 PCP - General 08/19/22 10/14/22 [place] [address] [place], [place] 699657 PCP - General 10/15/22 Magno Wood MD [address] 866955 Otolaryngology 05/29/15 08/02/17 Parth Ellis MD [address] [place] [id number] Assigned Heart and Vascular Provider 01/13/20 12/13/21 Tati Ayala MD [address] [address] [place], [place] 215190 Assigned Endocrinology Provider 01/13/20 12/29/20 Khris Butt MD [address] [facility] [address] [place] [id number] Assigned Heart and Vascular Provider 12/14/21 02/14/22 Roderick Morelos MD [address] [place] [id number] Cardiovascular Disease 02/03/22 Roderick Morelos MD [address] [place] [id number] Assigned Heart and Vascular Provider 02/15/22 07/18/22 Magno Wood MD [address] [place] [address] Otolaryngology 02/21/22 Sophie Ocasio AuD [address] [place] [address] 635265 Taping Machine Operator Audiology 02/21/22 Parth Ellis MD [address] [place] 896885 Assigned Heart and Vascular Provider 07/19/22 07/25/22 Roderick Morelos MD [address] [place] [address] Assigned Heart and Vascular Provider 07/26/22 08/08/22 Henny Rosales APRN CHILD CARE CENTRE MANAGER [address] [place] [address] Assigned Heart and Vascular Provider 08/09/[address] 9 [place], [place] 084455 Registered Dietitian Dietitian, Registered 09/02/22 Christiane Rodríguez MD 420 [facility] 396 [place], [place] 104715 Otolaryngology 11/12/22 Luis A Escobedo MD 420 [facility] 195 [place], [place] 930815 Assigned Surgical Provider 11/01/22 11/28/22 Chely Fernandez PA-C [address] [place] [address] 640805 Assigned Surgical Provider 11/29/22 02/06/23 Jing Cadena, PERINATAL SPECIALIST CEO ZIFF DAVIS 420 [facility] 450 [place], [place] 700475 Clinical Nurse Specialist Anesthesiology 01/15/23 Radha Lopez, [facility] [address] [place] [address] Pharmacist Pharmacist 01/16/23 Luis A Escobedo MD [address] [place] [address] 195 [place] [address] Assigned Surgical Provider 02/07/23 04/15/23 Geri Loza PA-C [address] [place] [address] Assigned Surgical Provider 04/16/23 Raina Patterson APRN CHILD CARE CENTRE MANAGER [address] [place] [address] Nurse Practitioner Cardiovascular Disease 05/11/23 documented as of this encounter
--- OUTSIDE RECORDS SUMMARY | 2024-01-11 23:14 | XMS_ITS | Encounter Summary ---
Author Organization [facility] Address [address] [place] [address] Care Team Providers Care B2B Managed Service Sales Exec Name Role Phone Edda Agudelo PA-C Primary Care Provider + [phone] Magno Wood MD Unavailable [phone] [place] Jovanna [place] Primary Care Provider Unavailable Parth Ellis MD Unavailable +[phone] Tati Ayala MD Unavailable +[phone] Khris Butt MD Unavailable +[phone] MorelosRoderick nunes MD Unavailable +[phone] Roderick Morelos MD Unavailable +[phone] Magno Wood MD Unavailable +[phone] Sophie Ocasio Unavailable +[phone] Parth Ellis MD Unavailable +[phone] MorelosRoderick nunes MD Unavailable +[phone] Henny Rosales APRN ACTING MANAGER Unavailable +[phone] [facility] Primary Care Pr ovider Sharee Oliva RD Unavailable +[phone] Kaykay Duarte [employer] [place] PUMPER Primary Care Provider +[phone] Christiane Rodríguez MD Unavailable +[phone] Luis A Escobedo MD Unavailable +[phone] Chely Fernandez PA-C Unavailable +[phone] CadenaJing jacob Susie FUENTES [facility] Unavailable + [phone] Radha Lopez [facility] Unavailable +[phone] Luis A Escobedo MD Unavailable +[phone] Geri Loza PA-C Unavailable +[phone] Yesenia Raina FUENTES ACTING MANAGER Unavailable Encounter Details Date Type Department Care Team (Late st Contact Info) Description 02/10/2008 Office Visit-[facility] 6405 [facility] [address] [place] [address] Reji Li MD 6405 [facility] [address] [place] [address] Social History Tobacco Use Types [...] Physician: LUIS A WORRELL Referring Clinic: [facility] CURRENT DIAGNOSES 1. - Hypercholesterolemia, [...] Out COVID-19 03/19/2020 03/19/2020 03/19/2020 6:22 PM GAS SUBSTATION OPERATOR COVID-19 03/19/2020 03/19/2020 04/09/2020 11:3 9 PM GAS SUBSTATION OPERATOR Rule Out COVID-19 06/19/2021 06/19/2021 06/19/2021 1:37 AM CDT Rule Out COVID-19 10/29/2021 10/29/2021 10/29/2021 1:07 AM CDT documented as of this encounter Care Teams B2B Managed Service Sales Exec Relationship Specialty Start Date End Date Edda Agudelo PA-C [facility] [address] [address] PCP - General 05/04/12 10/11/19 Ernestina Martini 420 [facility] 396 [place] [address] PCP - General Family Practice 10/12/19 08/18/22 [facility] Elvia Nug[place] [address] [place] [address] PCP - General 08/19/22 10/14/22 Kaykay Duarte [place] [address] [place] [address] PCP - General 10/15/22 Magno Wood MD 420 [facility] 396 [place] [address] Otolaryngology 05/29/15 08/02/17 Parth Ellis MD [address] [place] [address] Assigned Heart and Vascular Provider 01/13/20 12/13/21 Tati Ayala MD [address] [address] [place], [place] 917900 Assigned Endocrinology Provider 01/13/20 12/29/20 Khris Butt MD [address] [place] [address] [place] [address] Assigned Heart and Vascular Provider 12/14/21 02/14/22 Roderick Morelos MD [address] [place] 432745 Cardiovascular Disease 02/03/22 Roderick Morelos MD [address] [place] 493835 Assigned Heart and Vascular Provider 02/15/22 07/18/22 Magno Wood MD 420 [facility] 396 [place] [address] Otolaryngology 02/21/22 Sophie Ocasio AuD [address] [facility] [place] [address] Staff Writer Audiology 02/21/22 Parth Ellis MD [address] [place] 655795 Assigned Heart and Vascular Provider 07/19/22 07/25/22 Roderick Morelos MD [address] [place] 095405 Assigned Heart and Vascular Provider 07/26/22 08/08/22 Henny Rosales, LEVELER HELPER ACTING MANAGER [address] [place] [address] Assigned Heart and Vascular Provider 08/09/[address]09 [place], [place] 825095 Registered Dietitian Dietitian, Registered 09/02/22 Christiane Rodríguez MD 420 [facility] 396 [place] [address] Otolaryngology 11/12/22 Luis A Escobedo MD 420 [facility] 195 [place] [address] Assigned Surgical Provider 11/01/22 11/28/22 Chely Fernandez PA-C 909 [place] [address] Assigned Surgical Provider 11/29/22 02/06/23 Jing Cadena, LEVELER HELPER MORNING SHOW HOST 420 [facility] 450 [place] [address] Clinical Nurse Specialist Anesthesiology 01/15/23 Radha Lopez, [facility] [address] [place] [address] 766805 Pharmacist Pharmacist 01/16/23 Luis A Escobedo MD [address] [place] [address] 195 [place], [place] 374515 Assigned Surgical Provider 02/07/23 04/15/23 Geri Loza PA-C [address] [place] [address] 385155 Assigned Surgical Provider 04/16/23 Raina Patterson APRN ACTING MANAGER [address] [place] 747075 Nurse Practitioner Cardiovascular Disease 05/11/23 documented as of this encounter
--- OUTSIDE RECORDS SUMMARY | 2024-01-11 23:14 | XMS_ITS | Encounter Summary ---
Author Organization [place] Address [address] [place] [address] Care Team Providers Care Bank Analyst Name Role Phone Edda Agudelo PA-C Primary Care Provider + [phone] Magno Wood MD Unavailable [phone] [place] Jovanna Brewster Primary Care Provider Unavailable Parth Ellis MD Unavailable +[phone] Tati Ayala MD Unavailable +[phone] Khris Butt MD Unavailable +[phone] MorelosRoderick nunes MD Unavailable +[phone] Roderick Morelos MD Unavailable +[phone] Magno Wood MD Unavailable +[phone] Sophie Ocasio Unavailable +[phone] Parth Ellis MD Unavailable +[phone] MorelosRoderick nunes MD Unavailable +[phone] Henny Rosales APRN TOOL MARKER Unavailable +[phone] [facility] Primary [facility] Pr ovider Sharee Oliva RD Unavailable +[phone] Kaykay Duarte LAND AGENT Primary Care Provider [phone] Christiane Rodríguez MD Unavailable +[phone] Luis A Escobedo MD Unavailable + [phone] Chely Fernandez PA-C Unavailable +[phone] CadenaJing APRN CYLINDER LOADER Unavailable + [phone] Radha Lopez [facility] Unavailable +[phone] Luis A Escobedo MD Unavailable +[phone] Geri Loza PA-C Unavailable +[phone] Raina Patterson GINA TOOL MARKER Unavailable +[phone] Encounter Details Date Type Department Care Team (Late st Contact Info) Description 12/06/2004 Office Visit-[facility] [address] [place] [address] Unknown, DoctorMD Social History Tobacco [...] Physician: BOY WATSON Referring Clinic: [facility] CURRENT DIAGNOSES 1. - Hypercholesterolemia, 272.0 [...] and labs HISTORY OF PRESENT ILLNESS </B><FONT FACE=Correctional Medicine Physician New> Jimbo Owens is a pleasant, 34-year-old [...] cholesterol 194, ratio 5.4, ALT 14. Her [place] 10-year risk score is 1%. According to that, her LDL cholesterol goal should be less than 160, although given her risk factors and family history, she may certainly benefit penitentiary from an LDL cholesterol between 100-120. Jimbo, [...] mcg/inh and Zocor 20 mg IMPRESSIONS/PLAN </B><FONT FACE=Correctional Medicine Physician New>1) Family history of coronary artery disease [...] Out COVID-19 03/19/2020 03/19/2020 03/19/2020 6:22 PM HEEL WHEELER COVID-19 03/19/2020 03/19/2020 04/09/2020 11:3 9 PM HEEL WHEELER Rule Out COVID-19 06/19/2021 06/19/2021 06/19/2021 1:37 AM CDT Rule Out COVID-19 10/29/2021 10/29/2021 10/29/2021 1:07 AM CDT documented as of this encounter Care Teams Bank Analyst Relationship Specialty Start Date End Date Edda Agudelo PA-C [facility] [address] [address] PCP - General 05/04/12 10/11/19 Ernestina Martini [address] [place] [address] [address] PCP - General Family Practice 10/12/19 08/18/22 [facility] Jovanna Brewster [address] [place] [address] PCP - General 08/19/22 10/14/22 Kaykay Duarte, LAND AGENT [address] [place], [place] 045787 PCP - General 10/15/22 Magno Wood MD [address] 656695 Otolaryngology 05/29/15 08/02/17 Parth Ellis MD [address] [place] 421415 Assigned Heart and Vascular Provider 01/13/20 12/13/21 Tati Ayala MD [address] [place], [place] 426980 Assigned Endocrinology Provider 01/13/20 12/29/20 Khris Butt MD [address] [facility] [address] [place] 479905 Assigned Heart and Vascular Provider 12/14/21 02/14/22 Roderick Morelos MD [address] [place] [address] MD Cardiovascular Disease 02/03/22 Roderick Morelos MD [address] [place] 497775 Assigned Heart and Vascular Provider 02/15/22 07/18/22 Magno Wood MD [address] [place] [address] 396 [place], [place] 028085 Otolaryngology 02/21/22 Sophie Ocasio AuD [address]09 [place], [place] 767075 Heliarc Welder Audiology 02/21/22 Parth Ellis MD [address] [place] 293335 Assigned Heart and Vascular Provider 07/19/22 07/25/22 Roderick Morelos MD [address] [place] [address] Assigned Heart and Vascular Provider 07/26/22 08/08/22 Henny Rosales APRN TOOL MARKER [address] [place] [phone] Assigned Heart and Vascular Provider 08/09/[address] [place] [address] 245185 Registered Dietitian Dietitian, Registered 09/02/22 Christiane Rodríguez MD [address] [place] [address] 396 [place], [place] 243905 Otolaryngology 11/12/22 Luis A Escobedo MD [address] [place] [address] 061365 Assigned Surgical Provider 11/01/22 11/28/22 Chely Fernandez PA-C [address] [place] [address] 906005 Assigned Surgical Provider 11/29/22 02/06/23 Jing Cadena APRN CYLINDER LOADER [address] [place] [address] 450 [place], [place] 559995 Clinical Nurse Specialist Anesthesiology 01/15/23 Radha Lopez, [facility] [address] [place] [address] Pharmacist Pharmacist 01/16/23 Luis A Escobedo MD [address] [place] [address] 195 [place] [address] Assigned Surgical Provider 02/07/23 04/15/23 Geri Loza PA-C [address] [place] [address] Assigned Surgical Provider 04/16/23 Raina Patterson APRN TOOL MARKER [address] [place] [address] Nurse Practitioner Cardiovascular Disease 05/11/23 documented as of this encounter
--- OUTSIDE RECORDS SUMMARY | 2024-01-11 23:14 | XMS_ITS | Encounter Summary ---
Author Organization [place] Address [address] [place] [address] Care Team Providers Care Rubber Worker Name Role Phone Elvia Nugent [place] Primary Care Provider Unavailable Parth Ellis MD Unavailable [phone] Tati Ayala MD Unavailable +[phone] Khris Butt MD Unavailable +[phone] MorelosRoderick nunes MD Unavailable +[phone] Roderick Morelos MD Unavailable +[phone] Magno Wood MD Unavailable [phone] Sophie Ocasio Unavailable +[phone] Parth Ellis MD Unavailable +[phone] Roderick Morelos MD Unavailable +[phone] Henny Rosales APRN WATER VESSEL CAPTAIN Unavailable +[phone] [facility] Jovanna [place] Primary Care Pr ovider Sharee Oliva RD Unavailable +[phone] Kaykay Duarte AUTOMOBILE INSPECTOR Primary Care Provider Christiane Rodríguez MD Unavailable +[phone] Luis A Escobedo MD Unavailable +[phone] Chely Fernandez PA-C Unavailable Cadena, Jing Susie MANAGER OF DISASTER RECOVERY SENIOR SYSTEMS PROGRAMMER Unavailable +[phone] Jessica Radha Estuardo [facility] Unavailable +[phone] Luis A Escobedo MD Unavailable +[phone] MariselGeri nunesMary Jo PA-C Unavailable Raina Patterson MANAGER OF DISASTER RECOVERY WATER VESSEL CAPTAIN Unavailable Encounter Details Date Type Department Care [...] documented as of this encounter Care Teams Rubber Worker Relationship Specialty Start Date End Date Ernestina Martini PCP - General Family Practice 10/12/19 08/18/22 [facility] [address] [place], [place] 269057 PCP - General 08/19/22 10/14/22 [place] [address] [place] [address] PCP - General 10/15/22 Parth Ellis MD [address] [place] 808655 Assigned Heart and Vascular Provider 01/13/20 12/13/21 Tati Ayala MD [address] [place], [place] 039980 Assigned Endocrinology Provider 01/13/20 12/29/20 Khris Butt MD [address] [facility] [address] [place] [address] Assigned Heart and Vascular Provider 12/14/21 02/14/22 Roderick Morelos MD [address] [place] [address] Cardiovascular Disease 02/03/22 Roderick Morelos MD [address] 00 [place] [address] Assigned Heart and Vascular Provider 02/15/22 07/18/22 Magno Wood MD [address] [place] [address] 941265 Otolaryngology 02/21/22 Sophie Ocasio AuD [address] [place] [address] 399105 Barrel Leveler Audiology 02/21/22 Parth Ellis MD [address] [place] 485355 Assigned Heart and Vascular Provider 07/19/22 07/25/22 Roderick Morelos MD [address] [place] [address] Assigned Heart and Vascular Provider 07/26/22 08/08/22 Henny Rosales APRN WATER VESSEL CAPTAIN [address] [place] [address] Assigned Heart and Vascular Provider 08/09/[address] [place], [place] 660365 Registered Dietitian Dietitian, Registered 09/02/22 Christiane Rodríguez MD 420 [facility] 396 [place], [place] 833985 Otolaryngology 11/12/22 Luis A Escobedo MD 420 [facility] 195 [place], [place] 466405 Assigned Surgical Provider 11/01/22 11/28/22 Chely Fernandez PA-C 909 [place], [place] 828585 Assigned Surgical Provider 11/29/22 02/06/23 Jing Cadena APRN SENIOR SYSTEMS PROGRAMMER 420 [facility] 450 [place], [place] 124115 Clinical Nurse Specialist Anesthesiology 01/15/23 Radha Lopez, [facility] [address] [place] [address] Pharmacist Pharmacist 01/16/23 Luis A Escobedo MD [address] [place] [address] Assigned Surgical Provider 02/07/23 04/15/23 Geri Loza PA-C [address] [place] [address] Assigned Surgical Provider 04/16/23 Raina Patterson APRN WATER VESSEL CAPTAIN [address] [place] [address] Nurse Practitioner Cardiovascular Disease 05/11/23 documented as of this encounter
--- OUTSIDE RECORDS SUMMARY | 2024-01-11 23:14 | XMS_ITS | Encounter Summary ---
Author Organization [place] Address [address] [place] [address] Care Team Providers Care Cash Management Coordinator Name Role Phone Edda Agudelo PA-C Primary Care Provider + [phone] Magno Wood MD Unavailable [phone] [place] Jovanna Duncan Primary Care Provider Unavailable Parth Ellis MD Unavailable +[phone] Tati Ayala MD Unavailable [phone] Khris Butt MD Unavailable +[phone] MorelosRoderick nunes MD Unavailable +[phone] Roderick Morelos MD Unavailable [phone] Magno Wood MD Unavailable [phone] Sophie Ocasio Unavailable +[phone] Parth Ellis MD Unavailable +[phone] MorelosRoderick nunes MD Unavailable Henny Rosales APRN TRAVELING REPRESENTATIVE Unavailable +[phone] [facility] Primary Care Pr ovider Sharee Oliva RD Unavailable +[phone] Kaykay Duarte MINE UTILITY OPERATOR Primary Care Provider [phone] Christiane Rodríguez MD Unavailable +[phone] Luis A Escobedo MD Unavailable + [phone] Chely Fernandez PA-C Unavailable +[phone] Cadena Jing Susie [facility] Unavailable + [phone] Radha Lopez [facility] Unavailable +[phone] Luis A Escobedo MD Unavailable +[phone] Geri Loza PA-C Unavailable +[phone] Yesenia Raina [facility] Unavailable Encounter Details Date Type Department Care Team (Late st Contact Info) Description 02/08/2007 Office Visit-[facility] 6405 [facility] [address] [place] [address] Reji Li MD 6405 [facility] [address] [place] [address] Social History Tobacco Use Types [...] Half-Brother - [place]; Sister 1 - CAD; SOCIAL HISTORY Alcohol [...] valve 2. F/U with Imani Ott, MSN, TRAVELING REPRESENTATIVE 3 months Reji Li M.D. documented in this encounter Plan of Treatment Not on file documented as of this encounter Visit Diagnoses Not on filedocumented in this encounter Additional Health Concerns Infection Onset Date Last Indicated Resolved Time Rule Out COVID-19 03/19/2020 03/19/2020 03/19/2020 6:22 PM STRAIGHTENING PRESS OPERATOR COVID-19 03/19/2020 03/19/2020 04/09/2020 11:3 9 PM STRAIGHTENING PRESS OPERATOR Rule Out COVID-19 06/19/2021 06/19/2021 06/19/2021 1:37 AM CDT Rule Out COVID-19 10/29/2021 10/29/2021 10/29/2021 1:07 AM CDT documented as of this encounter Care Teams Cash Management Coordinator Relationship Specialty Start Date End Date Edda Agudelo PA-C [facility] [address] [place] [address] 795138 PCP - General 05/04/12 10/11/19 Ernestina Martini 420 [facility] 396 [place] [address] PCP - General Family Practice 10/12/19 08/18/22 [facility] [address] [place], [place] [id number] PCP - General 08/19/22 10/14/22 Kaykay Duarte, MINE UTILITY OPERATOR [address] [place] [address] PCP - General 10/15/22 Magno Wood MD [address] [place] [address] [facility] 396 [place] [address] Otolaryngology 05/29/15 08/02/17 Parth Ellis MD [address] [place] [address] Assigned Heart and Vascular Provider 01/13/20 12/13/21 Tati Ayala MD [address] [facility] 200 [place], [place] 100870 Assigned Endocrinology Provider 01/13/20 12/29/20 Khris Butt MD [address] [place] [address] [place] [address] Assigned Heart and Vascular Provider 12/14/21 02/14/22 Roedrick Morelos MD [address] [place] [address] Cardiovascular Disease 02/03/22 Roderick Morelos MD [address] [place] [address] Assigned Heart and Vascular Provider 02/15/22 07/18/22 Magno Wood MD [address] [place] [address] [facility] 396 [place] [address] Otolaryngology 02/21/22 Sophie Ocasio AuD 9 [place], [place] 540845 Fiber Optics Supervisor Audiology 02/21/22 Parth Ellis MD [address] [place], [place] 603775 Assigned Heart and Vascular Provider 07/19/22 07/25/22 Roderick Morelos MD [address] [place], [place] 376475 Assigned Heart and Vascular Provider 07/26/22 08/08/22 Henny Rosales APRN TRAVELING REPRESENTATIVE [address] [place] [address] Assigned Heart and Vascular Provider 08/09/[address] [place] [address] 638865 Registered Dietitian Dietitian, Registered 09/02/22 Christiane Rodríguez MD [address] [place] [address] 396 [place], [place] 386605 Otolaryngology 11/12/22 Luis A Escobedo MD [address] [place] [address] 195 [place] [address] Assigned Surgical Provider 11/01/22 11/28/22 Chely Fernandez PA-C [address] [place] [address] 181765 Assigned Surgical Provider 11/29/22 02/06/23 Jing Cadena APRN ETCHER ELECTROLYTIC 420 [facility] 450 [place] [address] Clinical Nurse Specialist Anesthesiology 01/15/23 Radha Lopez [facility] [address] [place] [address] 783995 Pharmacist Pharmacist 01/16/23 Luis A Escobedo MD 420 [facility] 195 [place], [place] 292895 Assigned Surgical Provider 02/07/23 04/15/23 Geri Loza PA-C [address] [place] [address] 619725 Assigned Surgical Provider 04/16/23 Raina Patterson APRN TRAVELING REPRESENTATIVE [address] [place], [place] 940235 Nurse Practitioner Cardiovascular Disease 05/11/23 documented as of this encounter
--- OUTSIDE RECORDS SUMMARY | 2024-01-11 23:14 | XMS_ITS | Encounter Summary ---
Author Organization [place] Address [address] [place] [address] Care Team Providers Care Elevator Repair Mechanic Name Role Phone Edda Agudelo PA-C Primary Care Provider + [phone] Magno Wood MD Unavailable [phone] [place] Jovanna [place] Primary Care Provider Unavailable Parth Ellis MD Unavailable +[phone] Tati Ayala MD Unavailable +[phone] Khris Butt MD Unavailable +[phone] MorelosRoderick nunes MD Unavailable +[phone] Roderick Morelos MD Unavailable +[phone] Magno Wood MD Unavailable +[phone] Sophie Ocasio Unavailable +[phone] Parth Ellis MD Unavailable +[phone] MorelosRoderick nunes MD Unavailable +[phone] Henny Rosales APRN TECHNOLOGY SALES SPECIALIST Unavailable +[phone] [facility] Primary Care Pr ovider Sharee Oliva RD Unavailable +[phone] Kaykay Duarte TRANSIT PLANNER Primary Care Provider [phone] Christiane Rodríguez MD Unavailable +[phone] Luis A Escobedo MD Unavailable + [phone] Chely Fernandez PA-C Unavailable +[phone] Jing Cadena FIELD SERVICE CONSULTANT CLINIC LEAD Unavailable + [phone] Radha Lopez [facility] Unavailable +[phone] Luis A Escobedo MD Unavailable + [phone] Geri Loza PA-C Unavailable +[phone] Raina Patterson FIELD SERVICE CONSULTANT TECHNOLOGY SALES SPECIALIST Unavailable Encounter Details Date Type Department Care Team (Late st Contact Info) Description 03/31/2006 Office Visit-[facility] [place] 6405 [facility] [address] [place] [phone] Imani Ott, FIELD SERVICE CONSULTANT TECHNOLOGY SALES SPECIALIST 6405 [facility] [address] [place] [address]45 Social History Tobacco Use Types Packs/Day Years [...] old Referring Physician: BOY WATSON Referring Clinic: [facility] CURRENT DIAGNOSES 1. - Hypercholesterolemia, 272.0 [...] delightful 35-year-old female who presents to the [facility] today for a follow-up visit [...] Mother - Age 34, cancer-breast; Half-Brother - [place]; Sister 1 - CAD; <FONT COLOR=#[id number]><FONT POINT=10>CARDIAC RISK FACTORS Tobacco Abuse: negative; Family [...] Out COVID-19 03/19/2020 03/19/2020 03/19/2020 6:22 PM ASSEMBLER FISHING FLOATS COVID-19 03/19/2020 03/19/2020 04/09/2020 11:3 9 PM ASSEMBLER FISHING FLOATS Rule Out COVID-19 06/19/2021 06/19/2021 06/19/2021 1:37 AM CDT Rule Out COVID-19 10/29/2021 10/29/2021 10/29/2021 1:07 AM CDT documented as of this encounter Care Teams Elevator Repair Mechanic Relationship Specialty Start Date End Date Edda Agudelo PA-C [facility] [address] [place] [address] PCP - General 05/04/12 10/11/19 Ernestina Martini 420 [facility] 396 [place] [address] PCP - General Family Practice 10/12/19 08/18/22 [facility] [place] [address] [place], [place] 337707 PCP - General 08/19/22 10/14/22 [place] [address] [place] [address] PCP - General 10/15/22 Magno Wood MD 420 [facility] 396 [place], [place] 557065 Otolaryngology 05/29/15 08/02/17 Parth Ellis MD [address] [address] Assigned Heart and Vascular Provider 01/13/20 12/13/21 Tati Ayala MD [address] [place], [place] 905170 Assigned Endocrinology Provider 01/13/20 12/29/20 Khris Butt MD [address] [facility] [address] [place] [address] Assigned Heart and Vascular Provider 12/14/21 02/14/22 Roderick Morelos MD [address] [facility] [place] 306945 Cardiovascular Disease 02/03/22 Roderick Morelos MD [address] [facility] [place] 114615 Assigned Heart and Vascular Provider 02/15/22 07/18/22 Magno Wood MD [address] [place] [address] Otolaryngology 02/21/22 Sophie Ocasio AuD [address] [place] [address] 739685 Butcher Supervisor Audiology 02/21/22 Parth Ellis MD [address] [place] [place] 470485 Assigned Heart and Vascular Provider 07/19/22 07/25/22 Roderick Morelos MD [address] [place] 618345 Assigned Heart and Vascular Provider 07/26/22 08/08/22 Henny Rosales APRN TECHNOLOGY SALES SPECIALIST [address] [facility] [place] [phone] Assigned Heart and Vascular Provider 08/09/[address] [place] [address] [id number] Registered Dietitian Dietitian, Registered 09/02/22 Christiane Rodríguez MD [address] [place] [address] 396 [place], [place] 141705 Otolaryngology 11/12/22 Luis A Escobedo MD [address] [place] [address] 952485 Assigned Surgical Provider 11/01/22 11/28/22 Chely Fernandez PA-C [address] [place] [address] Assigned Surgical Provider 11/29/22 02/06/23 Jing Cadena, FIELD SERVICE CONSULTANT CLINIC LEAD [address] [place] [address] 450 [place], [place] 717345 Clinical Nurse Specialist Anesthesiology 01/15/23 Radha Lopez, [facility] [address] [place] [address] Pharmacist Pharmacist 01/16/23 Luis A Escobedo MD [address] [place] [address] 068545 Assigned Surgical Provider 02/07/23 04/15/23 Geri Loza PA-C [address] [place] [address] 276625 Assigned Surgical Provider 04/16/23 Raina Patterson, GINA TECHNOLOGY SALES SPECIALIST [address] [facility] [address] [place] [address] 020025 Nurse Practitioner Cardiovascular Disease 05/11/23 documented as of this encounter
--- OUTSIDE RECORDS SUMMARY | 2024-01-11 23:14 | XMS_ITS | Encounter Summary ---
Author Organization [place] Address [address] [place] [address] Care Team Providers Care Material Preparation Worker Name Role Phone Barrington Agudelo PA-C Primary Care Provider + [phone] Magno Wood MD Unavailable [phone] [place] Jovanna [place] Primary Care Provider Unavailable Parth Ellis MD Unavailable +[phone] Tati Ayala MD Unavailable +[phone] Khris Butt MD Unavailable +[phone] MorelosRoderick nunes MD Unavailable +[phone] Roderick Morelos MD Unavailable +[phone] Magno Wood MD Unavailable +[phone] Sophie Ocasio Unavailable +[phone] Parth Ellis MD Unavailable +[phone] MorelosRoderick nunes MD Unavailable +[phone] Henny Rosales APRN SUPERVISOR BIT AND SHANK DEPARTMENT Unavailable +[phone] [facility] Pr ovider Sharee Oliva RD Unavailable +[phone] Kaykay Duarte CIGAR PACKER AND PICKER Primary Care Provider [phone] Christiane Rodríguez MD Unavailable +[phone] Luis A Escobedo MD Unavailable + [phone] Chely Fernandez PA-C Unavailable +[phone] Cadena Jing Susie FUENTES ADMITTING OFFICE ESCORT Unavailable + [phone] Radha Lopez [facility] Unavailable +[phone] Luis A Escobedo MD Unavailable +[phone] Geri Loza PA-C Unavailable +[phone] Yesenia Raina FUENTES SUPERVISOR BIT AND SHANK DEPARTMENT Unavailable Encounter Details Date Type Department Care Team (Late st Contact Info) Description 05/07/2011 Office Visit-[facility] Heart [facility] [address] [facility] [address] [place] [id number] Reji Li MD 6405 [facility] [address] [place] [address] Social History Tobacco Use Types [...] old Referring Physician: BARRINGTON LARA Referring Clinic: [facility] CURRENT DIAGNOSES 1. - Hypercholesterolemia, [...] was 287. ALT was 17. 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; Residence - lives with and children; Place of - [place]; Hours Worked - 30 hours per week; [...] Rule Out COVID-19 03/19/2020 03/19/202003/1903/19/2020 6:22 PM PRINT SHOP MANAGER COVID-19 03/19/2020 03/19/2020 04/09/2020 11:3 9 PM PRINT SHOP MANAGER Rule Out COVID-19 06/19/2021 06/19/2021 06/19/2021 1:37 AM CDT Rule Out COVID-19 10/29/2021 10/29/2021 10/29/2021 1:07 AM CDT documented as of this encounter Care Teams Material Preparation Worker Relationship Specialty Start Date End Date Barrington Agudelo PA-C [facility] [address] [place] [address] PCP - General 05/04/12 10/11/19 Ernestina Martini [address] [facility] 396 [place] [address] PCP - General Family Practice 10/12/19 08/18/22 [facility] [place] [address] [place], [place] 966557 PCP - General 08/19/22 10/14/22 [place] [address] [place], [place] 543607 PCP - General 10/15/22 Magno Wood MD [address] 607915 Otolaryngology 05/29/15 08/02/17 Parth Ellis MD [address] [place] 599105 Assigned Heart and Vascular Provider 01/13/20 12/13/21 Tati Ayala MD [address] [place], [place] 548590 Assigned Endocrinology Provider 01/13/20 12/29/20 Khris Butt MD [address] [place] [address] Assigned Heart and Vascular Provider 12/14/21 02/14/22 Roderick Morelos MD [address] [place] [address] MD Cardiovascular Disease 02/03/22 Roderick Morelos MD [address] [place] [address] Assigned Heart and Vascular Provider 02/15/22 07/18/22 Magno Wood MD [address] [place] [address] 560215 Otolaryngology 02/21/22 Sophie Ocasio AuD [address] [place] [address] 995475 Rubber Stamp Maker Audiology 02/21/22 Parth Ellis MD [address] [place] [address] Assigned Heart and Vascular Provider 07/19/22 07/25/22 Roderick Morelos MD [address] [place] [address] Assigned Heart and Vascular Provider 07/26/22 08/08/22 Henny Rosales, ROAD MIXER OPERATOR SUPERVISOR BIT AND SHANK DEPARTMENT [address] [place] [address] Assigned Heart and Vascular Provider 08/09/[address] [place], [place] 477985 Registered Dietitian Dietitian, Registered 09/02/22 Christiane Rodríguez MD 420 [facility] 396 [place], [place] 882325 Otolaryngology 11/12/22 Luis A Escobedo MD [address] [place] [address] 973335 Assigned Surgical Provider 11/01/22 11/28/22 Chely Fernandez PA-C [address] [place] [address] 444315 Assigned Surgical Provider 11/29/22 02/06/23 Jing Cadena, ROAD MIXER OPERATOR ADMITTING OFFICE ESCORT [address] [place] [address] 450 [place], [place] 109005 Clinical Nurse Specialist Anesthesiology 01/15/23 Radha Lopez, [facility] [address] [place] [address] [phone] Pharmacist Pharmacist 01/16/23 Luis A Escobedo MD [address] [place] [address] 195 [place], [place] 492235 Assigned Surgical Provider 02/07/23 04/15/23 Geri Loza PA-C [address] [place] [address] Assigned Surgical Provider 04/16/23 Raina Patterson APRN SUPERVISOR BIT AND SHANK DEPARTMENT [address] [place] [address] Nurse Practitioner Cardiovascular Disease 05/11/23 documented as of this encounter
--- OUTSIDE RECORDS SUMMARY | 2024-01-11 23:14 | XMS_ITS | Encounter Summary ---
Author Organization [facility] Address [address] [place] [address] Care Team Providers Care Safety And Security Manager Name Role Phone Edda Agudelo PA-C Primary Care Provider + [phone] Magno Wood MD Unavailable [phone] [place] Jovanna Startex Primary Care Provider Unavailable Parth Ellis MD Unavailable +[phone] Tati Ayala MD Unavailable +[phone] Khris Butt MD Unavailable +[phone] MorelosRoderick nunes MD Unavailable +[phone] Roderick Morelos MD Unavailable Magno Wood MD Unavailable [phone] Sophie Ocasio Unavailable +[phone] Parth Ellis MD Unavailable +[phone] MorelosRoderick nunes MD Unavailable +[phone] Henny Rosales APRN HISTORICAL MANUSCRIPTS CURATOR Unavailable +[phone] [facility] Primary [facility] Pr ovider Sharee Oliva RD Unavailable +[phone] Kaykay Duarte ROTARY DRILLER Primary Care Provider [phone] Christiane Rodríguez MD Unavailable +[phone] Luis A Escobedo MD Unavailable +[phone] Chely Fernandez PA-C Unavailable +[phone] CadenaJing jacob Susie FUENTES [facility] Unavailable + [phone] Radha Lopez [facility] Unavailable +[phone] Luis A Escobedo MD Unavailable +[phone] Geri Loza PA-C Unavailable +[phone] Yesenia Raina FUENTES [facility] Unavailable [phone] Encounter Details Date Type Department Care Team (Late st Contact Info) Description 12/16/2005 Office Visit-[facility] Heart [facility] [address] [facility] [address] [place] [address] Reji Li MD 6[address] [facility] [address] [place] [address] Social History Tobacco Use Types [...] [place] Referring Clinic[facility] CURRENT DIAGNOSES 1. - Hypercholesterolemia, [...] minutes, greater than 50% counseling. Reji Li M.D./murtaza-avelina/[id number] cc:Luis A Vincent M.D. documented in this encounter Plan of Treatment Not on file documented as of this encounter Visit Diagnoses Not on filedocumented in this encounter Additional Health Concerns Infection Onset Date Last Indicated Resolved Time Rule Out COVID-19 03/19/2020 03/19/2020 03/19/2020 6:22 PM COMMERCIAL REAL ESTATE AGENT COVID-19 03/19/2020 03/19/2020 04/09/2020 11:3 9 PM COMMERCIAL REAL ESTATE AGENT Rule Out COVID-19 06/19/2021 06/19/2021 06/19/2021 1:37 AM CDT Rule Out COVID-19 10/29/2021 10/29/2021 10/29/2021 1:07 AM CDT documented as of this encounter Care Teams Safety And Security Manager Relationship Specialty Start Date End Date Edda Agudelo PA-C [facility] [address] [place] [address] PCP - General 05/04/12 10/11/19 Ernestina Martini [address] [facility] 396 [place] [address] PCP - General Family Practice 10/12/19 08/18/22 [facility] Elvia Nugent Start[address] [address] [place] [address] PCP - General 08/19/22 10/14/22 [place] [address] [place] [address] PCP - General 10/15/22 Magno Wood MD 420 [facility] 396 [place] [address] Otolaryngology 05/29/15 08/02/17 Parth Ellis MD [address] [place] [place] [address] Assigned Heart and Vascular Provider 01/13/20 12/13/21 Tati Ayala MD [address] [place], [place] 259070 Assigned Endocrinology Provider 01/13/20 12/29/20 Khris Butt MD [address] [facility] [address] [place] [address] Assigned Heart and Vascular Provider 12/14/21 02/14/22 Roderick Morelos MD [address] [place] [address] Cardiovascular Disease 02/03/22 Roderick Morelos MD [address] [place] [address] Assigned Heart and Vascular Provider 02/15/22 07/18/22 Magno Wood MD [address] [place] [address] 396 [place], [place] 323165 Otolaryngology 02/21/22 Sophie Ocasio AuD 909 [place], [place] 561375 Detective Investigator Audiology 02/21/22 Parth Ellis MD [address] [place] 614485 Assigned Heart and Vascular Provider 07/19/22 07/25/22 Roderick Morelos MD [address] [place] [address] Assigned Heart and Vascular Provider 07/26/22 08/08/22 Henny Rosales APRN HISTORICAL MANUSCRIPTS CURATOR [address] [place] [phone] Assigned Heart and Vascular Provider 08/09/[address] [place], [place] 748305 Registered Dietitian Dietitian, Registered 09/02/22 Christiane Rodríguez MD 420 [facility] 396 [place], [place] 600075 Otolaryngology 11/12/22 Luis A Escobedo MD [address] [place] [address] 195 [place], [place] 799365 Assigned Surgical Provider 11/01/22 11/28/22 Chely Fernandez PA-C [address] [place] [address] [phone] Assigned Surgical Provider 11/29/22 02/06/23 Jing Cadena APRN WARD HELPER [address] [place] [address] 450 [place], [place] 421495 Clinical Nurse Specialist Anesthesiology 01/15/23 Radha Lopez, [facility] [address] [place] [address] [phone] Pharmacist Pharmacist 01/16/23 Luis A Escobedo MD [address] [place] [address] 195265 Assigned Surgical Provider 02/07/23 04/15/23 Geri Loza PA-C [address] [place] [address] 260675 Assigned Surgical Provider 04/16/23 Raina Patterson, GINA HISTORICAL MANUSCRIPTS CURATOR [address] [facility] [address] [place] 701795 Nurse Practitioner Cardiovascular Disease 05/11/23 documented as of this encounter
--- OUTSIDE RECORDS SUMMARY | 2024-01-11 23:14 | XMS_ITS | Encounter Summary ---
Author Organization [facility] Address [address] [place] [address]68 Care Team Providers Care Online Banking Specialist Name Role Phone Edda Agudelo PA-C Primary Care Provider + [phone] Magno Wood MD Unavailable [phone] [place] Jovanna [place] Primary Care Provider Unavailable Parth Ellis MD Unavailable +[phone] Tati Ayala MD Unavailable +[phone] Khris Butt MD Unavailable +[phone] MorelosRoderick nunes MD Unavailable [phone] Roderick Morelos MD Unavailable [phone] Magno Wood MD Unavailable [phone] Sophie Ocasio Unavailable +[phone] Parth Ellis MD Unavailable +[phone] MorelosRoderick nunes MD Unavailable +[phone] Henny Rosales APRN COMMERCIAL LENDING VICE PRESIDENT Unavailable +[phone] [facility] Primary Care Pr ovider Sharee Oliva RD Unavailable [phone] Kaykay Duarte SEAT COVERER Primary Care Provider [phone] Christiane Rodríguez MD Unavailable +[phone] Luis A Escobedo MD Unavailable + [phone] Chely Fernandez PA-C Unavailable +[phone] Cadena Jing Susie FUENTES 8TH GRADE MATHEMATICS TEACHER Unavailable + [phone] Radha Lopez [facility] Unavailable +[phone] Luis A Escobedo MD Unavailable +[phone] Geri Loza PA-C Unavailable +[phone] Raina Patterson GINA COMMERCIAL LENDING VICE PRESIDENT Unavailable +[phone] Encounter Details Date Type Department Care Team (Late st Contact Info) Description 04/20/2009 Office Visit-[facility] Heart [address] [place] [phone] Lauri Canada APRN CNP NO INFO AVAILABLE [...] Referring Physician: LUIS A WORRELL Referring Clinic: [facility] CURRENT DIAGNOSES 1. - Hypercholesterolemia, 272.0 2. [...] Half-Brother - [place]; Sister 1 - CAD; CARDIAC RISK FACTORS [...] Out COVID-19 03/19/2020 03/19/2020 03/19/2020 6:22 PM SCALE MODEL MAKER COVID-19 03/19/2020 03/19/2020 04/09/2020 11:3 9 PM SCALE MODEL MAKER Rule Out COVID-19 06/19/2021 06/19/2021 06/19/2021 1:37 AM CDT Rule Out COVID-19 10/29/2021 10/29/2021 10/29/2021 1:07 AM CDT documented as of this encounter Care Teams Online Banking Specialist Relationship Specialty Start Date End Date Edda Agudelo PA-C [facility] [address] [address] PCP - General 05/04/12 10/11/19 [facility] [place] [address] [address] PCP - General Family Practice 10/12/19 08/18/22 [facility] [address] [place] [address] PCP - General 08/19/22 10/14/22 [place] [address] [place] [address] PCP - General 10/15/22 Magno Wood MD [address] [address] Otolaryngology 05/29/15 08/02/17 aPrth Ellis MD [address] [place] [address] Assigned Heart and Vascular Provider 01/13/20 12/13/21 Tati Ayala MD [address] [place] [address] Assigned Endocrinology Provider 01/13/20 12/29/20 Khris Butt MD [address] [place], [place] 796745 Assigned Heart and Vascular Provider 12/14/21 02/14/22 Roderick Morelos MD [address] [place] 829145 MD Cardiovascular Disease 02/03/22 Roderick Morelos MD [address] [place] 524335 Assigned Heart and Vascular Provider 02/15/22 07/18/22 Magno Wood MD [address] [place] [address] 396 [place], [place] 521435 Otolaryngology 02/21/22 Sophie Ocasio AuD 909 [place], [place] 418165 Magnetizer Audiology 02/21/22 Parth Ellis MD [address] [place] 230155 Assigned Heart and Vascular Provider 07/19/22 07/25/22 Roderick Morelos MD [address] [place] [address] Assigned Heart and Vascular Provider 07/26/22 08/08/22 Henny Rosales, OIL PIPELINE OPERATOR COMMERCIAL LENDING VICE PRESIDENT [address] [place] [address] Assigned Heart and Vascular Provider 08/09/[address] [place] [address] 841975 Registered Dietitian Dietitian, Registered 09/02/22 Christiane Rodríguez MD [address] [place] [address] 396 [place] [address] Otolaryngology 11/12/22 Luis A Escobedo MD [address] [place] [address] [id number] Assigned Surgical Provider 11/01/22 11/28/22 Chely Fernandez PA-C [address] [place] [address] Assigned Surgical Provider 11/29/22 02/06/23 Jing Cadena, OIL PIPELINE OPERATOR 8TH GRADE MATHEMATICS TEACHER [address] [place] [address] 450 [place], [place] 195325 Clinical Nurse Specialist Anesthesiology 01/15/23 Radha Lopez [facility] [address] [place] [address] [phone] Pharmacist Pharmacist 01/16/23 Luis A Escobedo MD [address] [place] [address] 195 [place], [place] 873225 Assigned Surgical Provider 02/07/23 04/15/23 Geri Loza PA-C 909 [place] [address] Assigned Surgical Provider 04/16/23 Raina Patterson APRN CNP [address] [facility] [address] [place] [address] Nurse Practitioner Cardiovascular Disease 05/11/23 documented as of this encounter
--- OUTSIDE RECORDS SUMMARY | 2024-01-11 23:14 | XMS_ITS | Encounter Summary ---
Author Organization [facility] Address [address] [place] [address] Care Team Providers Care Curb Machine Operator Name Role Phone Edda Agudelo PA-C Primary Care Provider + [phone] Magno Wood MD Unavailable [phone] [place] Jovanna [place] Primary Care Provider Unavailable Parth Ellis MD Unavailable +[phone] Tati Ayala MD Unavailable +[phone] Khris Butt MD Unavailable +[phone] MorelosRoderick nunes MD Unavailable +[phone] Roderick Morelos MD Unavailable Magno Wood MD Unavailable [phone] Sophie Ocasio Unavailable +[phone] Parth Ellis MD Unavailable +[phone] MorelosRoderick nunes MD Unavailable +[phone] Henny Rosales APRN STATION INSTALLER AND REPAIRER Unavailable +[phone] [facility] Primary Care Pr ovider Sharee Oliva RD Unavailable +[phone] Kaykay Duarte RESEARCH AND DEVELOPMENT RESEARCHER Primary Care Provider [phone] Christiane Rodríguez MD Unavailable +[phone] Luis A Escobedo MD Unavailable + [phone] Chely Fernandez PA-C Unavailable +[phone] Cadena Jing Susie FUENTES COATING ENGINEER Unavailable + [phone] Radha Lopez [facility] Unavailable +[phone] Luis A Escobedo MD Unavailable +[phone] Geri Loza PA-C Unavailable +[phone] Raina Patterson GINA STATION INSTALLER AND REPAIRER Unavailable +[phone] Encounter Details Date Type Department Care Team (Late st Contact Info) Description 06/13/2009 Office Visit-[facility] Heart [address] [place] [phone] Lauri Canada APRN CNP NO INFO AVAILABLE [...] Referring Physician: LUIS A WORRELL Referring Clinic: [facility] CURRENT DIAGNOSES 1. 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 Lipid profile/ALT 3 months Lauri Canada, N.P. documented in this encounter Plan of Treatment Not on file documented as of this encounter Visit Diagnoses Not on filedocumented in this encounter Additional Health Concerns Infection Onset Date Last Indicated Resolved Time Rule Out COVID-19 03/19/2020 03/19/2020 03/19/2020 6:22 PM ACCOUNTANT TAX COVID-19 03/19/2020 03/19/202004/09/2020 11:3 9 PM ACCOUNTANT TAX Rule Out COVID-19 06/19/2021 06/19/2021 06/19/2021 1:37 AM CDT Rule Out COVID-19 10/29/2021 10/29/2021 10/29/2021 1:07 AM CDT documented as of this encounter Care Teams Curb Machine Operator Relationship Specialty Start Date End Date Edda Agudelo PA-C [facility] [address] [place] [address] PCP - General 05/04/12 10/11/19 Ernestina Martini [address] [facility] 396 [place] [address] PCP - General Family Practice 10/12/19 08/18/22 [facility] [address] [place] [address] PCP - General 08/19/22 10/14/22 Kaykay Duarte, RESEARCH AND DEVELOPMENT RESEARCHER [address] [place] [address] PCP - General 10/15/22 Magno Wood MD [address] [address] Otolaryngology 05/29/15 08/02/17 Parth Ellis MD [address] [place] [address] Assigned Heart and Vascular Provider 01/13/20 12/13/21 Tati Ayala MD [address] [place] [address] Assigned Endocrinology Provider 01/13/20 12/29/20 Khris Butt MD [address] [place] [address] Assigned Heart and Vascular Provider 12/14/21 02/14/22 Roderick Morelos MD [address] [place] [address] Cardiovascular Disease 02/03/22 Roderick Morelos MD [address] [place] 462925 Assigned Heart and Vascular Provider 02/15/22 07/18/22 Magno Wood MD [address] [place] [address] 598365 Otolaryngology 02/21/22 Sophie Ocasio AuD [address] [place] [address] 561595 Commercial Roofer Audiology 02/21/22 Parth Ellis MD [address] [place] [address] Assigned Heart and Vascular Provider 07/19/22 07/25/22 Roderick Morelos MD [address] [place] [address] Assigned Heart and Vascular Provider 07/26/22 08/08/22 Henny Rosales APRN STATION INSTALLER AND REPAIRER [address] [place] [phone] Assigned Heart and Vascular Provider 08/09/[address] [place] [address] 229885 Registered Dietitian Dietitian, Registered 09/02/22 Christiane Rodríguez MD [address] [place] [address] 396 [place], [place] 477155 Otolaryngology 11/12/22 Luis A Escobedo MD [address] [place] [address] 361595 Assigned Surgical Provider 11/01/22 11/28/22 Chely Fernandez PA-C [address] [place] [address] 771585 Assigned Surgical Provider 11/29/22 02/06/23 Jing Cadena, DISPATCH LEAD COATING ENGINEER [address] [place] [address] 450 [place], [place] 649415 Clinical Nurse Specialist Anesthesiology 01/15/23 Radha Lopez [facility] [address] [place] [address] 699145 Pharmacist Pharmacist 01/16/23 Luis A Escobedo MD [address] [place] [address] 080205 Assigned Surgical Provider 02/07/23 04/15/23 Geri Loza PA-C [address] [place] [address] 663115 Assigned Surgical Provider 04/16/23 Raina Patterson APRN [facility] [address] [place] [address] Nurse Practitioner Cardiovascular Disease 05/11/23 documented as of this encounter
--- OUTSIDE RECORDS SUMMARY | 2024-01-11 23:14 | XMS_ITS | Encounter Summary ---
Author Organization [place] Address [address] [place] [address] Care Team Providers Care Bushwalking Guide Name Role Phone [facility] Primary Care Provider Unavailable Khris Butt MD Unavailable [phone] MorelosRoderick nunes MD Unavailable Roderick Morelos MD Unavailable [phone] Magno Wood MD Unavailable [phone] Sophie Ocasio Unavailable [phone] Parth Ellis MD Unavailable MorelosRoderick nunes MD Unavailable [phone] Henny Rosales APRN SENIOR RESERVATIONS AGENT Unavailable [phone] [facility] [place] [facility] [place] Primary Care Pr ovider Sharee Oliva RD Unavailable Kaykay Duarte SCREENER PERFUMER Primary Care Provider Christiane Rodríguez MD Unavailable [phone] Luis A Escobedo MD Unavailable [phone] Chely FernandezC Unavailable [phone] Jing Cadena APRN LICENSED INSURANCE AGENT Unavailable [phone] JessicaRadha [facility] Unavailable Luis A Escobedo MD Unavailable [phone] Geri LozaC Unavailable [phone] Raina Patterson APRN SENIOR RESERVATIONS AGENT Unavailable Encounter Details Date Type Department Care Team (Late st Contact Info) Description 02/11/2022 MyC Medical Advice [facility] [place] [address] [facility] [address] [place] [address] Rowena Stockton [...] Coronavirus/COVID-19? No / Unsure 02/10/2022 4:12 PM OFFSET MACHINE OPERATOR documented as of this encounter Plan of Treatment Not on file documented as of this encounter Visit Diagnoses Not on filedocumented in this encounter Care Teams Bushwalking Guide Relationship Specialty Start Date End Date Ernestina Martini PCP - General Family Practice 10/12/19 08/18/22 [facility] [address] [place], [place] 058017 PCP - General 08/19/22 10/14/22 Kaykay Duarte SCREENER PERFUMER [address] [place] [address] [place] [address]887 PCP - General 10/15/22 Khris Butt MD [address] [facility] [address] [place] [id number] Assigned Heart and Vascular Provider 12/14/21 02/14/22 Roderick Morelos MD [address] [place] [address] Cardiovascular Disease 02/03/22 Roderick Morelos MD [address] [place] [address] Assigned Heart and Vascular Provider 02/15/22 07/18/22 Magno Wood MD [address] [place] [address] 190755 Otolaryngology 02/21/22 Sophie Ocasio AuD [address] [place], [place] 803375 Wagon Drill Operator Audiology 02/21/22 Parth Ellis MD [address] [place] [id number] Assigned Heart and Vascular Provider 07/19/22 07/25/22 Roderick Morelos MD [address] [place] [address] Assigned Heart and Vascular Provider 07/26/22 08/08/22 Henny Rosales APRN SENIOR RESERVATIONS AGENT [address] [place] [phone] Assigned Heart and Vascular Provider 08/09/[address] [place], [place] 742465 Registered Dietitian Dietitian, Registered 09/02/22 Christiane Rodríguez MD [address] [facility] [address] [place], [place] 7795[address] Otolaryngology 11/12/22 Luis A Escobedo MD [address] [facility] [address] [place], [place] 188295 Assigned Surgical Provider 11/01/22 11/28/22 Chely Fernandez PA-C [address] [place] [address] [id number] Assigned Surgical Provider 11/29/22 02/06/23 Jing Cadena APRN LICENSED INSURANCE AGENT [address] [place] [address] [address] [place], [place] 813265 Clinical Nurse Specialist Anesthesiology 01/15/23 Radha Lopez, [facility] [address] [place] [address] 077195 Pharmacist Pharmacist 01/16/23 Luis A Escobedo MD [address] [place] [address] Assigned Surgical Provider 02/07/23 04/15/23 Geri Loza PA-C [address] [place] [address] [id number] Assigned Surgical Provider 04/16/23 Raina Patterson APRN SENIOR RESERVATIONS AGENT [address] [facility] [address] [place] 233585 Nurse Practitioner Cardiovascular Disease 2/19/24 documented as of this encounter
--- OUTSIDE RECORDS SUMMARY | 2024-01-11 23:14 | XMS_ITS | Encounter Summary ---
Author Organization [place] Address [address] [place] [address] Care Team Providers Care Tester/Lift Trucker Name Role Phone [facility] Primary Care Provider Unavailable Roderick Morelos MD Unavailable Roderick Morelos MD Unavailable [phone] Magno Wood MD Unavailable [phone] Sophie Ocasio AuD Unavailable [phone] Parth Ellis MD Unavailable [phone] Roderick Morelos MD Unavailable [phone] Henny Rosales APRN FISHING ROD ASSEMBLER Unavailable [phone] [facility] Primary Care Pr ovider Sharee Oliva RD Unavailable Kaykay Duarte GARDE MANGER Primary Care Provider Christiane Rodríguez MD Unavailable [phone] Luis A Escobedo MD Unavailable [phone] Chely Fernandez PA-C Unavailable [phone] Jing Cadena COMPUTER SYSTEMS SECURITY ADMINISTRATOR TANK PUMPER Unavailable [phone] Radha Lopez [facility] Unavailable Luis A Escobedo MD Unavailable Geri Loza PA-C Unavailable [phone] UzielkeriRaina APRN FISHING ROD ASSEMBLER Unavailable Encounter Details Date Type Department Care Team (Late st Contact Info) Description 04/01/2022 [facility] [address] [place] [address] [facility] Social History Tobacco Use Types Packs/Day [...] on filedocumented in this encounter Care Teams Tester/Lift Trucker Relationship Specialty Start Date End Date Ernestina Martini PCP - General Family Practice 10/12/19 08/18/22 [facility], [place] [address] [place] [address] PCP - General 08/19/22 10/14/22 [place] [address] [place] [id number] PCP - General 10/15/22 Roderick Morelos MD [address] [place] [id number] Cardiovascular Disease 02/03/22 Roderick Morelos MD [address] [place] [address] Assigned Heart and Vascular Provider 02/15/22 07/18/22 Magno Wood MD [address] [facility] 396 [place], [place] 9[address]5 Otolaryngology 02/21/22 Sophie Ocasio AuD [address] [place] [address]955 Neck Band Setter Audiology 02/21/22 Parth Ellis MD [address] [place], [place] 1747[address] Assigned Heart and Vascular Provider 07/19/22 07/25/22 Roderick Morelos MD [address] [place] [address] Assigned Heart and Vascular Provider 07/26/22 08/08/22 Henny Rosales APRN FISHING ROD ASSEMBLER [address] [place] [address] Assigned Heart and Vascular Provider 08/09/22 Sharee Oliva, ÁNGEL [address] [place] [address] [phone] Registered Dietitian Dietitian, Registered 09/02/22 Christiane Rodríguez MD 420 [facility] 396 [place], [place] 575[address] Otolaryngology 11/12/22 Luis A Escobedo MD [address] [place] [address] 309135 Assigned Surgical Provider 11/01/22 11/28/22 Chely Fernnadez PA-C [address] [place], [place] 765845 Assigned Surgical Provider 11/29/22 02/06/23 Jing Cadena APRN TANK PUMPER [address] [facility] 450 [place] [address] Clinical Nurse Specialist Anesthesiology 01/15/23 Radha Lopez, [facility] [address] [place], [place] [address] Pharmacist Pharmacist 01/16/23 Luis A Escobedo MD [address] [facility] 195 [place], [place] 831515 Assigned Surgical Provider 02/07/23 04/15/23 Geri Loza PA-C [address] [place], [place] 688075 Assigned Surgical Provider 04/16/23 Raina Patterson APRN FISHING ROD ASSEMBLER [address] [facility] [address] [place] [id number] Nurse Practitioner Cardiovascular Disease 05/11/23 documented as of this encounter
--- OUTSIDE RECORDS SUMMARY | 2024-01-11 23:15 | XMS_ITS | Encounter Summary ---
Author Organization [place] Address [address], [place] [address] Care Team Providers Care Manager Six Sigma Name Role Phone Kaykay Duarte APRN, CNP Primary Care Provid er Reason for Visit * Reason Comments Vaginal Odor Encounter Details Date Type Department Care Team (Late st Contact Info) Description 04/14/2018 Nurse Triage [facility] [id number] [place] [address] Kaykay Duarte APRN, CNP [id number] [place] [address] [phone] Vaginal Odor Social History Tobacco Use Types [...] States she will go to Urgent Care H SPREADER * Kaykay Duarte APRN, CNP - 04/14/2018 3:22 PM CST Plz call pt. Ok to work her in on at 11:40 or 1pm. H SPREADER * Geri Burnett, RN - 04/14/2018 3:09 PM CST Clinician Action: Appointment Work In Reason Vaginal discharge/odor Clinician Next Step: Route to [facility] to follow up and Patient IS expecting a call back from care team Specific Request(s): 1. Pt asking for a work in [facility] for vaginal discharge (white) and odor [...] last menstrual period? no Protocols used: VAGINAL [id number]-CG H SPREADER * Karen Saunders - 04/14/2018 3:01 PM CST Pt calling back in. Transferred to triage per request. H SPREADER * Jacquelyn Jaquez CNA - 04/14/2018 11:05 AM CST Symptoms Describe your symptoms (if pain, include location): Odor, discharge When did they start? 2 weeks Additional comments (related to the above concern): Pt has had past BV infection. Pt unavailable to speak 11:30-1:00pm today 04/14/18 If a prescription is needed, patient would like it filled at the pharmacy listed in [employer]. (Verify the pharmacy patient would like to use for this request is highlighted in blue in Pharmacy Selection under [employer]) Is it okay to leave a detailed message on your voicemail? Yes (Advise caller that the PN call back number will end with [phone] or unknown) For urgent symptoms: Please route and transfer to: Triage Pool (high priority) For routine symptoms: Please route to: Triage Pool (only transfer if caller insists) H SPREADER documented in this encounter Plan of Treatment Not on file documented as of this encounter Visit Diagnoses Not on filedocumented in this encounter Additional Health Concerns Infection Onset Date Last Indicated Resolved Time R/O COVID19 02/08/2021 02/08/2021 02/09/2021 10:0 6 AM CLOTH SPREADER R/O COVID19 02/17/2021 02/17/2021 02/17/2021 11:3 2 PM CLOTH SPREADER documented as of this encounter Care Teams Manager Six Sigma Relationship Specialty Start Date End Date Kaykay Duarte, FIRE ALARM INSTALLER, HOME CARE AIDE [address] [place] [address] PCP - General Nurse Practitioner 10/25/21 documented as of this encounter
--- OUTSIDE RECORDS SUMMARY | 2024-01-11 23:15 | XMS_ITS | Encounter Summary ---
Author Organization [place] Address [address] [address] Care Team Providers Care Fashion Director Name Role Phone Kaykay Duarte APRN, LEAH Primary Care Provid er Encounter Details Date Type Department Care Team (Late st Contact Info) Description 12/18/2023 Notes/Orders Centralized Outreach [address] [place] [id number] [place] [phone] Mikayla Sweeney MD [address] [place] [address] Type 2 diabetes mellitus without [...] ([facility]) documented in this encounter Care Teams Fashion Director Relationship Specialty Start Date End Date Kaykay Duarte, GINA, REGULATORY ADMINISTRATOR [address] [place] [address] PCP - General Nurse Practitioner 10/25/21 documented as of this encounter
--- NOTE | 2024-01-11 23:16 | ED.GENADULT ---
HPI - General Adult General Time Seen by Provider: 23:16 <Emerita Patel MD - Last Filed: 01/12/24 01:28> Date Seen: 01/11/24 <Emerita Patel MD - Last Filed: 01/12/24 01:28> Chief complaint: Post Op Complication <Emerita Patel MD - Last Filed: 01/12/24 01:28> Stated complaint: hip surg 01/05, edema r leg <Emerita Patel MD - Last Filed: 01/12/24 01:28> Time Seen by Provider: 01/11/24 23:16 <Emerita Patel MD - Last Filed: 01/12/24 01:28> Source: patient, RN notes reviewed and old records reviewed <Emerita Patel MD - Last Filed: 01/12/24 01:28> Mode of arrival: ambulatory <Emerita Patel MD - Last Filed: 01/12/24 01:28> Limitations: no limitations <Emerita Patel MD - Last Filed: 01/12/24 01:28> History of Present Illness HPI narrative: Billie is a very pleasant 53-year-old female who is postop day number 5 right hip surgery who also has a history of SVT and hyperlipidemia who comes to the emergency room with concerns regarding right lower extremity swelling. Patient noted to have difficulties after surgery. Was seen here on for evaluation of fever up to 102.7, urinary frequency and pain over the right lateral leg. Patient notes that she has had considerable challenges with pain control since her surgery. She describes of burning over the incision and down her right leg. She notes that she is using 10 mg of oxycodone every 3 hours. She also has some pills of Dilaudid that she intermittently uses. She is also using hydroxyzine. She tells me that this burning sensation really bothers her and it increases to a 10/10 at times. She does note that the fever that she had experienced before being seen on the did not come back and has not been present. She notes that the urinary frequency is resolved as well. She notes that they did a CT of her chest and she had atelectasis she thinks. No history no PE. Again, today she has had gradually increased edema of the right lower extremity. She notes that there is also bruising that is new today. She also has discomfort extending into her right groin. She denies any falls or trauma. She is able to ambulate. She notes that the burning is now extending into her lower leg as well. Describes the discomfort in her right hip now extending into her lower back. She notes she tries to sleep on her left side but when she awakes in the morning she has significant right hip pain. Patient is on Xarelto. Had a 4 day supply. Still has 2 tablets left at this point. <Emerita Patel MD - Last Filed: 01/12/24 01:28> Related Data Home medications: Home Medications ?Medication ?Instructions ?Recorded ?Confirmed ropinirole 2 mg tablet 4 mg PO QPM 09/10/22 01/11/24 rosuvastatin 10 mg tablet 10 mg PO HS 01/06/24 01/11/24 Previous Rx's ?Medication ?Instructions ?Recorded gabapentin 600 mg tablet 600 mg PO DAILY #90 tabs 12/23/23 levothyroxine 200 mcg tablet 200 mcg PO DAILY #90 tabs 12/23/23 acetaminophen 500 mg capsule 500 - 1,000 mg (1 - 2 x 500 mg) PO 01/07/24 Q6H PRN #100 caps aspirin 81 mg tablet,delayed 81 mg PO BID #50 tabs 01/07/24 release hydroxyzine pamoate 25 mg capsule 25 - 50 mg (1 - 2 x 25 mg) PO Q6H 01/07/24 PRN postoperative pain #60 caps oxycodone 5 mg tablet 2.5 - 10 mg (0.5 - 2 x 5 mg) PO 01/07/24 Q4-6H PRN pain #42 tabs rivaroxaban 10 mg tablet 10 mg PO DAILY #4 tabs 01/07/24 sennosides 8.6 mg-docusate sodium 1 - 2 tab-cap (1 - 2 x 8.6-50 mg) 01/07/24 50 mg tablet (Senna-S) PO BID PRN constipation #30 tabs <Emerita Patel MD - Last Filed: 01/12/24 01:28> Allergies/adverse reactions: Allergies Allergy/AdvReac Type Severity Reaction Status Date / Time No Known Drug Allergies Allergy Verified 01/11/24 23:15 <Emerita Patel MD - Last Filed: 01/12/24 01:28> Review of Systems Status of ROS: Reports: 10 or more systems reviewed and unremarkable except as noted in History and below <Emerita Patel MD - Last Filed: 01/12/24 01:28> Const: Denies: fever or chills <Emerita Patel MD - Last Filed: 01/12/24 01:28> ENMT: Denies: nasal congestion <Emerita Patel MD - Last Filed: 01/12/24 01:28> Cardio: Reports: swelling of feet/ankles; Denies: chest pain, lightheadedness or shortness of breath with exertion <Emerita Patel MD - Last Filed: 01/12/24 01:28> Resp: Denies: shortness of breath or cough <Emerita Patel MD - Last Filed: 01/12/24 01:28> GI: Denies: abdominal pain or nausea <Emerita Patel MD - Last Filed: 01/12/24 01:28> : Denies: painful urination or urinary frequency <Emerita Patel MD - Last Filed: 01/12/24 01:28> Musculo: Reports: back pain <Emerita Patel MD - Last Filed: 01/12/24 01:28> Integ/Breast: Reports: skin tenderness <Emerita Patel MD - Last Filed: 01/12/24 01:28> [facility] Medical History: Medical History Thyroid activity decreased (10/02/14) ?E03.9 - Hypothyroidism, unspecified (ICD-10) Restless leg syndrome, familial (05/29/14) ?G25.81 - Restless legs syndrome (ICD-10) Panic attacks (10/16/14) ?F41.0 - Panic disorder [episodic paroxysmal anxiety] (ICD-10) Other and unspecified hyperlipidemia (08/14/09) ?E78.5 - Hyperlipidemia, unspecified (ICD-10) Unspecified examination (08/14/09) ?Z00.00 - Encounter for general adult medical examination without abnormal findings (ICD-10) Moderate persistent asthma with acute exacerbation (06/12/16) ?J45.41 - Moderate persistent asthma with (acute) exacerbation (ICD-10) Irregular heart beat (08/14/09) ?I49.9 - Cardiac arrhythmia, unspecified (ICD-10) GERD (gastroesophageal reflux disease) (08/14/09) ?K21.9 - Gastro-esophageal reflux disease without esophagitis (ICD-10) Chronic low back pain ?M54.50 - Low back pain, unspecified (ICD-10) ?G89.29 - Other chronic pain (ICD-10) SVT (supraventricular tachycardia) ?I47.10 - Supraventricular tachycardia, unspecified (ICD-10) History of diabetes mellitus ?Z86.39 - Personal history of other endocrine, nutritional and metabolic disease (ICD-10) Moderate persistent asthma ?J45.40 - Moderate persistent asthma, uncomplicated (ICD-10) Panic attacks ?F41.0 - Panic disorder [episodic paroxysmal anxiety] (ICD-10) <Emerita Patel MD - Last Filed: 01/12/24 01:28> Surgical History: Surgical History History of total right hip arthroplasty (01/06/24) ?Z96.641 - Presence of right artificial hip joint (ICD-10) History of colposcopy ?Z98.890 - Other specified postprocedural states (ICD-10) History of cardiac radiofrequency ablation ?Z98.890 - Other specified postprocedural states (ICD-10) History of gastric bypass (2022) ?Z98.84 - Bariatric surgery status (ICD-10) H/O wisdom tooth extraction ?K08.409 - Partial loss of teeth, unspecified cause, unspecified class (ICD-10) History of excision of pilonidal cyst ?Z98.890 - Other specified postprocedural states (ICD-10) History of tonsillectomy and adenoidectomy (1973) ?Z90.89 - Acquired absence of other organs (ICD-10) History of tympanomastoidectomy (05/20/05) ?Z98.890 - Other specified postprocedural states (ICD-10) <Emerita Patel MD - Last Filed: 01/12/24 01:28> Family History: Family History Mother Breast cancer Father Stroke <Emerita Patel MD - Last Filed: 01/12/24 01:28> Social History: Social History What is your current living situation?: I presently have a place to live Problems where you live: no known problems In the past 12 months, utilities in danger of being shut off: no In past 12 months, lack of transportation kept you from medical appts, meetings, work, or getting things needed for daily living: no In the past 12 mos, have been you worried that your food would run out before you had money to buy more?: never true In the past 12 mos, the food you bought just didn't last and you didn't have money to buy more?: never true Smoking Status: Never smoker Do you use any of these nicotine containing products: None Second hand tobacco smoke exposure: No How often do you have a drink containing alcohol: 2-4 times a month How many standard drinks containing alcohol do you have on a typical day: 1 or 2 How often do you have six or more drinks on one occasion: Never AUDIT-C Alcohol total score: 2 Non-prescribed substance use: denies use Caffeine: Yes How often does anyone, including family, friends and others, physically hurt you: never How often does anyone, including family, friends and others, insult or talk down to you: never How often does anyone, including family, friends and others, threaten you with harm: never How often does anyone, including family, friends and others, scream or curse at you: never service: No <Emerita Patel MD - Last Filed: 01/12/24 01:28> Exam Narrative: Exam Narrative: Patient is alert and oriented. No acute distress. Fairly frustrated with this discomfort she has been dealing with. Abdomen soft. I do remove the bandage and the operative wound is clean dry without any erythema or drainage. Thigh itself appears to be normal. No hernias are palpated. She has a very subtle discoloration on the medial aspect of her knee and on the anterior tibia. No acute tenderness here. She does have edema of the right lower leg and it is subtly larger than the left. And ankle. <Emerita Patel MD - Last Filed: 01/12/24 01:28> Const: Vital Signs, click to edit/add: Vital Signs - 24 hr 01/11/24 23:07 01/11/24 23:12 Temperature 98.4 F Pulse Rate [Right Pulse Oximeter] 78 Respiratory Rate 20 Respiratory Rate [ Right Hip] 18 Blood Pressure [Ri ght Upper Arm] 132/74 Pulse Oximetry 97 Oxygen Delivery Me thod Room Air <Emerita Patel MD - Last Filed: 01/12/24 01:28> Vital Signs, click to edit/add: Vital Signs - 24 hr 01/11/24 23:07 01/11/24 23:12 Temperature 98.4 F Pulse Rate [Right Pulse Oximeter] 78 Respiratory Rate 20 Respiratory Rate [ Right Hip] 18 Blood Pressure [Ri ght Upper Arm] 132/74 Pulse Oximetry 97 Oxygen Delivery Me thod Room Air <Rebecca Beach MD - Last Filed: 01/12/24 01:34> Documenting provider has reviewed patient's vital signs: yes <Emerita Patel MD - Last Filed: 01/12/24 01:28> Course Course ED Course: At this time will order x-ray of the right hip, ultrasound of the lower extremities. 1. Postoperative pain-patient did receive oxycodone 10 mg here in the ED. Her previous dose had been approximately 830. X-ray of the hip pending 2. Lower extremity edema-ultrasound pending 3. Disposition-this case was signed out to my colleague Dr. Beach <Emerita Patel MD - Last Filed: 01/12/24 01:28> Reevaluation(s) Time of Reevaluation #1: 01:31 <Rebecca Beach MD - Last Filed: 01/12/24 01:34> Reevaluation #1: I took over care from Dr. Pacheco, patient's leg examined as imaging findings are now back. She was given 10 mg of oxycodone p.o. for pain. X-ray and ultrasound findings are both negative, normal, as expected. By examination of the leg shows minimal swelling as compared to the opposite side with some mild bruising and stasis changes in the anterior tibial area. Dressing is not removed again but I do note that there is no additional surrounding redness. Patient verbalizes understanding that her results are normal. I did give her some validation that this recovery can be difficult but hopefully she turns the corner soon. She will keep her appointment later today with her orthopedic provider. She will continue use of her oxycodone and nonnarcotic pain medications as prescribed. Encouraged to continue her blood thinners as prescribed. Alarm symptoms reviewed that would warrant repeat ED follow-up. She verbalized understanding and agreement of plan. <Rebecca Beach MD - Last Filed: 01/12/24 01:34> Vital Signs Vital signs: Initial Vital Signs Respiratory Rate 18 01/11/24 23:07 Vital Signs Respiratory Rate 18 01/11/24 23:07 Temperature 98.4 F 01/11/24 23:12 Pulse Rate 78 01/11/24 23:12 Respiratory Rate 20 01/11/24 23:12 Blood Pressure 132/74 01/11/24 23:12 Pulse Oximetry 97 01/11/24 23:12 Oxygen Delivery Method Room Air 01/11/24 23:12 <Emerita Patel MD - Last Filed: 01/12/24 01:28> Initial Vital Signs Respiratory Rate 18 01/11/24 23:07 Vital Signs Respiratory Rate 18 01/11/24 23:07 Temperature 98.4 F 01/11/24 23:12 Pulse Rate 78 01/11/24 23:12 Respiratory Rate 20 01/11/24 23:12 Blood Pressure 132/74 01/11/24 23:12 Pulse Oximetry 97 01/11/24 23:12 Oxygen Delivery Method Room Air 01/11/24 23:12 <Rebecca Beach MD - Last Filed: 01/12/24 01:34> Medications Administered Medications: Generic Name Dose Route Start Last Admin Trade Name Freq PRN Reason Stop Dose Admin Oxycodone HCl 10 mg 01/12/24 00:52 01/12/24 00:50 Oxycodone 5 Mg Tablet PO 01/12/24 00:53 10 mg ONCE ONE Administration <Emerita Patel MD - Last Filed: 01/12/24 01:28> Generic Name Dose Route Start Last Admin Trade Name Freq PRN Reason Stop Dose Admin Oxycodone HCl 10 mg 01/12/24 00:52 01/12/24 00:50 Oxycodone 5 Mg Tablet PO 01/12/24 00:53 10 mg ONCE ONE Administration <Rebecca Beach MD - Last Filed: 01/12/24 01:34> Medical Decision Making Medical Records Medical records reviewed: Yes I reviewed the patient's medical records <Emerita Patel MD - Last Filed: 01/12/24 01:28> Imaging Data Venous US: Attestation: I have reviewed the pertinent imaging results. <Emerita Patel MD - Last Filed: 01/12/24 01:28> My impression: No evidence of DVT <Rebecca Beach MD - Last Filed: 01/12/24 01:34> Radiologist's impression: IMPRESSION: 1. Negative for acute DVT in the lower extremities. 2. Subcutaneous edema in the right leg. <Rebecca Beach MD - Last Filed: 01/12/24 01:34> Right hip x-ray: Attestation: I have reviewed the pertinent imaging results. <Emerita Patel MD - Last Filed: 01/12/24 01:28> My impression: Typical normal appearance of postoperative hip <Rebecca Beach MD - Last Filed: 01/12/24 01:34> Radiologist's impression: Impression: Postoperative changes of right total hip arthroplasty without radiographic evidence of acute osseous abnormality. Dictated by Иван Woodward MD @ 01/12/2024 12:38:09 AM <Rebecca Beach MD - Last Filed: 01/12/24 01:34> Discharge Plan Discharge Clinical Impression: Post-operative pain <Emerita Patel MD - Last Filed: 01/12/24 01:28> Patient Disposition: Home w/ Parent or Adult <Emerita Patel MD - Last Filed: 01/12/24 01:28> Condition: Stable <Emerita Patel MD - Last Filed: 01/12/24 01:28> Instructions: Pain Management After Surgery (DC) <Emerita Patel MD - Last Filed: 01/12/24 01:28> Additional Instructions: Thankfully, there are no signs of any abnormalities on the x-ray of your hip. The ultrasound of your legs also shows no signs of blood clot. On my examination, this is a pretty expected amount of swelling. There does not seem to be any sign of significant complication today. I want you to continue taking the blood thinners that you are prescribed, continue your same pain medication regimen, keep progressing through your increased activity and physical therapy. Keep your appointment later today with your orthopedic team. Come back to the emergency department if you have any alarming changes, significant worsening, high fevers, neurological changes or other signs of major problems. <Emerita Patel MD - Last Filed: 01/12/24 01:28> Activity Level: Activity as Tolerated <Emerita Patel MD - Last Filed: 01/12/24 01:28> Activity as Tolerated <Rebecca Beach MD - Last Filed: 01/12/24 01:34> Discharge Diet: Regular <Emerita Patel MD - Last Filed: 01/12/24 01:28> Regular <Rebecca Beach MD - Last Filed: 01/12/24 01:34> Prescriptions: No Action ropinirole 2 mg tablet 4 mg PO QPM levothyroxine 200 mcg tablet 200 mcg PO DAILY Qty: 90 0RF gabapentin 600 mg tablet 600 mg PO DAILY Qty: 90 3RF rosuvastatin 10 mg tablet 10 mg PO HS sennosides-docusate sodium [Senna-S] 8.6-50 mg tablet 1 - 2 tab-cap PO BID PRN (Reason: constipation) Qty: 30 0RF Rx Instructions: Hold medication if experiencing loose stools. aspirin 81 mg tablet,delayed release (DR/EC) 81 mg PO BID Qty: 50 0RF Rx Instructions: Medication to help prevent blood clots postoperatively; take TWICE daily. acetaminophen 500 mg capsule 500 - 1,000 mg PO Q6H MDD 4000mg PRNQty: 100 0RF oxycodone 5 mg tablet 2.5 - 10 mg PO Q4-6H MDD 6 PRN (Reason: pain) Qty: 42 0RF Rx Instructions: Take as needed for postop pain: 2.5mg mild pain, 5mg moderate, 10mg severe pain 7-/10. Wean as tolerated. hydroxyzine pamoate 25 mg capsule 25 - 50 mg PO Q6H PRN (Reason: postoperative pain) Qty: 60 0RF rivaroxaban 10 mg tablet 10 mg PO DAILY Qty: 4 0RF Rx Instructions: Medication for deep vein clot prevention post surgery. Complete this medication before starting Aspirin. <Emerita Patel MD - Last Filed: 01/12/24 01:28> Follow Up/Referrals: Provider,Not a Local [Primary Care Provider] - <Emerita Patel MD - Last Filed: 01/12/24 01:28> Stand Alone Forms: [employer] Info Instructions <Emerita Patel MD - Last Filed: 01/12/24 01:28>
--- NOTE | 2024-01-11 23:32 | CRLHL7_ITS ---
For Patients: As a result of the Cures Act, medical imaging exams and procedure reports are released immediately into your electronic medical record. You may view this report before your referring provider. If you have questions, please contact your health care provider. Indication: Right hip pain, postop. Technique: AP view of the pelvis with AP and lateral views of the right hip. Comparison: Pelvic and right hip radiographs 01/06/2024. Findings: There are postoperative changes of right total hip arthroplasty with components in satisfactory alignment and no radiographic evidence of gross hardware complication. No acute fracture or dislocation is identified. Intrauterine device is present. Impression: Postoperative changes of right total hip arthroplasty without radiographic evidence of acute osseous abnormality. Dictated by Иван Woodward MD @ 01/12/2024 12:38:09 AM (Electronically Signed)
--- OUTSIDE RECORDS SUMMARY | 2024-01-11 23:38 | XMS_ITS | Encounter Summary ---
Author Organization [facility] Address [address] [place] [id number] Care Team Providers Care Epic Interface Analyst Name Role Phone Roderick Morelos MD Unavailable [phone] Magno Wood MD Unavailable [phone] Sophie Ocasio AuD Unavailable [phone] Henny Rosales TEACHER EDUCATION INSTRUCTOR CODE MACHINE OPERATOR Unavailable Sharee Oliva RD Unavailable [phone] Kaykay Duarte NP Primary Care Provider Christiane Rodríguez MD Unavailable Jing Cadena TEACHER EDUCATION INSTRUCTOR BENCH HAND MACHINE Unavailable Radha Lopez [facility] Unavailable Luis A Escobedo MD Unavailable [phone] Geri LozaC Unavailable [phone] Raina Patterson TEACHER EDUCATION INSTRUCTOR CODE MACHINE OPERATOR Unavailable Encounter Details Date Type Department Care Team (Late st Contact Info) Description 04/14/2023 [facility] Medical Advice [facility] [address] [place] [address] Tanya Larsen RN Social History [...] documented as of this encounter Care Teams Epic Interface Analyst Relationship Specialty Start Date End Date Kaykay Duarte VACUUM CLEANER OPERATOR [id number] [place] [address] PCP - General 10/15/22 Roderick Morelos MD [address] [place] [address] Cardiovascular Disease 02/03/22 Magno Wood MD [address] [place] [address] [id number] Otolaryngology 02/21/22 Sophie Ocasio AuD [address] [place], [place] [id number] Ball [employer] Mixer Audiology 02/21/22 Henny Rosales APRN CODE MACHINE OPERATOR [address] [place] [phone] Assigned Heart and Vascular Provider 08/09/[address] [place] [address] Registered Dietitian Dietitian, Registered 09/02/22 Christiane Rodríguez MD [address] [facility] [address] [place], [place] [phone] Otolaryngology 11/12/22 Jing Cadena APRN BENCH HAND MACHINE [address] [place] [address] [address] [place], [place] [phone] Clinical Nurse Specialist Anesthesiology 01/15/23 Radha Lopez, [facility] [address] [place] [address] [id number] Pharmacist Pharmacist 01/16/23 Luis A Escobedo MD [address] [place] [address] [address] [place], [place] [id number] Assigned Surgical Provider 02/07/23 04/15/23 Geri Loza PA-C [address] [place] [address] [id number] Assigned Surgical Provider 04/16/23 Raina Patterson, [place] CODE MACHINE OPERATOR [address] [place] [id number] Nurse Practitioner Cardiovascular Disease 05/11/23 documented as of this encounter
--- OUTSIDE RECORDS SUMMARY | 2024-01-11 23:38 | XMS_ITS | Encounter Summary ---
Author Organization [facility] Address [address] [place] [address] Care Team Providers Care Undercollar Baster Name Role Phone Roderick Morelos MD Unavailable [phone] Magno Wood MD Unavailable [phone] Sophie Ocasio AuD Unavailable [phone] Henny Rosales FERRYBOAT OPERATOR CABLE PLATE STACKER Unavailable Sharee Oliva RD Unavailable [phone] Kaykay Duarte NP Primary Care Provider Christiane Rodríguez MD Unavailable [phone] Jing Cadena FERRYBOAT OPERATOR CABLE LADIES UNDERWEAR OPERATOR Unavailable Radha Lopez [facility] Unavailable Luis A Escobedo MD Unavailable [phone] Geri LozaC Unavailable [phone] Raina Patterson FERRYBOAT OPERATOR CABLE PLATE STACKER Unavailable [phone] Encounter Details Date Type Department Care Team (Late st Contact Info) Description 03/11/2023 [facility] Medical Advice Initial Department [facility] [place] Social History Tobacco Use Types Packs/Day Years [...] Specialty Start Date End Date Kaykay Duarte PASSENGER SERVICE SUPERVISOR [id number] [place] [address] PCP - General 10/15/22 Roderick Morelos MD [address] [place] [address] Cardiovascular Disease 02/03/22 Magno Wood MD [address] [phone] Otolaryngology 02/21/22 Sophie Ocasio AuD [address] [place] [address] [id number] Live In Housekeeper Nanny Audiology 02/21/22 Henny Rosales APRN PLATE STACKER [address] [place] [phone] Assigned Heart and Vascular Provider 08/09/[address] [place] [address] Registered Dietitian Dietitian, Registered 09/02/22 Christiane Rodríguez MD 420 [facility] [address] [place] [address] Otolaryngology 11/12/22 Jing Cadena, FERRYBOAT OPERATOR CABLE LADIES UNDERWEAR OPERATOR 420 [facility] [address] [place], [place] [address] Clinical Nurse Specialist Anesthesiology 01/15/23 Radha Lopez, [facility] [address] [place] [address] Pharmacist Pharmacist 01/16/23 Luis A Escobedo MD 420 [facility] [address] [place] [address] Assigned Surgical Provider 02/07/23 04/15/23 Geri Loza PA-C [address] [place] [address] Assigned Surgical Provider 04/16/23 Raina Patterson, GINA PLATE STACKER [address] [facility] [address] [place] [id number] Nurse Practitioner Cardiovascular Disease 05/11/23 documented as of this encounter
--- OUTSIDE RECORDS SUMMARY | 2024-01-11 23:38 | XMS_ITS | Clinical Summary ---
Author Organization [place] Address [address] [place] [address]50 Care Team Providers Care Kettle Hand Name Role Phone Roderick Morelos MD Unavailable [phone] Magno Wood MD Unavailable [phone] Sophie Ocasio AuD Unavailable Henny Rosales OPTICAL ELEMENT COATER CHAIN PEGGER Unavailable Sharee Oliva RD Unavailable [phone] Kaykay Duarte NP Primary Care Provider [phone] Christiane Rodríguez MD Unavailable Jing Cadena OPTICAL ELEMENT COATER SPECIAL EFFECTS PERSON Unavailable Radha Lopez [facility] Unavailable Geri LozaC Unavailable [phone] Raina Patterson APRN CHAIN PEGGER Unavailable [phone] Allergies Active Allergy Reactions Criticality Noted Date [...] & Plan: S/p gastric sleeve 08/09/2020 at [facility]. No post op complications. 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 Gastric sleeve was completed 08/09/[address] [facility] [address] Barillas. Starting weight 338lb, BMI 56.25. She felt that instantly did not see expected weight loss results. Per chart review had lost 8lbs by 3 months post op and has followed up with [facility] since. She has lost 38lbs since surgery, [...] Date Type Department Care Team Description 10/18/2023 [facility] Medical Advice [facility] Heart [address] [address] Radha Lopez [facility] from Last 3 Months Immunizations Name Administration [...] Comments Blood Pressure 124/78 03/24/2023 10:20 AM INSIDE BARREL LATHE OPERATOR Pulse 70 03/24/2023 10:20 AM INSIDE BARREL LATHE OPERATOR Temperature 36.8 ??C (98.2 ??F) 03/24/2023 10:[address] Respiratory Rate 16 03/24/2023 10:20 AM INSIDE BARREL LATHE OPERATOR Oxygen Saturation 99% 03/24/2023 10:20 AM INSIDE BARREL LATHE OPERATOR Inhaled Oxygen Concentration - - Weight 120.7 kg (266 lb) 04/23/2023 11:55 AM INSIDE BARREL LATHE OPERATOR Height 167.6 cm (5' 6) 04/23/2023 11:55 AM INSIDE BARREL LATHE OPERATOR Body Mass Index 42.93 04/23/2023 11:55 AM INSIDE BARREL LATHE OPERATOR Plan of Treatment Health Maintenance Due Date [...] Type Associated Problems Recent Progress Patient-Stated? Author [facility]AY SURG[facility] IS SCHEDULED Care Plan [facility] SURGERY IS SCHEDULED No Luis A Escobedo [...] FREE T4 REFLEX Add-On 02/28/2021 1:00 AM INSIDE BARREL LATHE OPERATOR 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 [...] with free T4 reflex (02/28/2021 1:00 AM INSIDE BARREL LATHE OPERATOR) TSH 0.86 0.40 - 4.00 mU/L 03/01/2021 4:13 PM INSIDE BARREL LATHE OPERATOR LABORATORY Blood STRUCTURE OF RIGHT UPPER LIMB / Unknown Venipuncture / Unknown 02/28/2021 1:00 AM INSIDE BARREL LATHE OPERATOR 02/28/2021 1:08 AM INSIDE BARREL LATHE OPERATOR Parth Ellis MD LAB - BLOOD ORD ERABLES LABORATORY [facility] Acute Care Lab [address] Lab (1st floor, no room number) [place] [address], [facility] [phone] from Last 3 Months or Most Recently Relevant to Health Maintenance Additional Health Concerns Active Problems Noted Date Diagnosed Date BRIAN PATHWAY SURGERY IS SCHEDULED 10/15/2022 Advance Directives For more information, please contact: [phone] * Full Code (Latest Code Status on [...] 12:01 PM 05/01/2018 3:45 AM Care Teams Kettle Hand Relationship Specialty [place] [address] [place] [address] PCP - General 10/15/22 Roderick Morelos MD [address] [place], [place] [address] Cardiovascular Disease 02/03/22 Magno Wood MD [address] [facility] 396 [place], [place] [address]265 Otolaryngology 02/21/22 Sophie Ocasio AuD [address] [place], [place] 714365 Electrical And Radio Aircraft Mechanic Audiology 02/21/22 Henny Rosales, OPTICAL ELEMENT COATER CHAIN PEGGER [address] [place] [address] Assigned Heart and Vascular Provider 08/09/[address] [place], [place] 513715 Registered Dietitian Dietitian, Registered 09/02/22 Christiane Rodríguez MD [address] [facility] [address] [place], [place] 05[address]25 Otolaryngology 11/12/22 Jing Cadena, OPTICAL ELEMENT COATER SPECIAL EFFECTS PERSON [address] [facility] [address] [place], [place] 121615 Clinical Nurse Specialist Anesthesiology 01/15/23 Radha Lopez, [facility] [address] [place] [address] 816375 Pharmacist Pharmacist 01/16/23 Geri Loza PA-C 9 [place] [address] Assigned Surgical Provider 04/16/23 Raina Patterson APRN CHAIN PEGGER [address] [place] [address] Nurse Practitioner Cardiovascular Disease 05/11/23
--- OUTSIDE RECORDS SUMMARY | 2024-01-11 23:38 | XMS_ITS | Encounter Summary ---
Author Organization [place] Address [address] [place] [address]35 Care Team Providers Care Comber Operator Name Role Phone Roderick Morelos MD Unavailable [phone] Magno Wood MD Unavailable [phone] Sophie Ocasio AuD Unavailable Henny Rosales FINANCIAL SYSTEMS ADMINISTRATOR UNDERCOAT SPRAYER Unavailable Sharee Oliva RD Unavailable [phone] Kaykay Duarte NP Primary Care Provider [phone] Christiane Rodríguez MD Unavailable Jing Cadena FINANCIAL SYSTEMS ADMINISTRATOR CNA PER DIEM Unavailable Radha Lopez [facility] Unavailable [phone] Luis A Escobedo MD Unavailable [phone] Geri LozaC Unavailable [phone] Raina Patterson FINANCIAL SYSTEMS ADMINISTRATOR UNDERCOAT SPRAYER Unavailable [phone] Encounter Details Date Type Department Care Team (Late st Contact Info) Description 02/17/2023 [facility] [address] 4th [place] [address] [place], Henny, RN Social History [...] documented as of this encounter Care Teams Comber Operator Relationship Specialty [place] [address] [place] [address] PCP - General 10/15/22 Roderick Morelos MD [address] [place] 648765 Cardiovascular Disease 02/03/22 Magno Wood MD [address] [facility] [address] [place], [place] 089565 Otolaryngology 02/21/22 Sophie Ocasio AuD 909 [place], [place] 410735 Sales Promoter Audiology 02/21/22 Henny Rosales APRN UNDERCOAT SPRAYER [address] [place] [phone] Assigned Heart and Vascular Provider 08/09/[address] [place], [place] 209925 Registered Dietitian Dietitian, Registered 09/02/22 Christiane Rodríguez MD [address] [facility] [address] [place], [place] 883765 Otolaryngology 11/12/22 Jing Cadena APRN CNA PER DIEM [address] [facility] [address] [place] [address] Clinical Nurse Specialist Anesthesiology 01/15/23 Radha Lopez [facility] [address] [place] [address] 254425 Pharmacist Pharmacist 01/16/23 Luis A Escobedo MD [address] [facility] [address] [place], [place] 657525 Assigned Surgical Provider 02/07/23 04/15/23 Geri Loza PA-C 9 [place], [place] 998715 Assigned Surgical Provider 04/16/23 Raina Patterson, GINA UNDERCOAT SPRAYER [address] [place] 347335 Nurse Practitioner Cardiovascular Disease 05/11/23 documented as of this encounter
--- OUTSIDE RECORDS SUMMARY | 2024-01-11 23:38 | XMS_ITS | Encounter Summary ---
Author Organization [facility] Address [address] [place] [address] Care Team Providers Care Wastewater Engineer Name Role Phone Roderick Morelos MD Unavailable [phone] Magno Wood MD Unavailable [phone] Sophie Ocasio AuD Unavailable [phone] Henny Rosales COPPER PLATE PRINTER VICE PRESIDENT OF TALENT MANAGEMENT Unavailable [phone] Unavailable [phone] Kaykay Duarte NP Primary Care Provider Christiane Rodríguez MD Unavailable [phone] Jing Cadena COPPER PLATE PRINTER MOLD SWABBER Unavailable Radha Lopez [facility] Unavailable Luis A Escobedo MD Unavailable Geri LozaC Unavailable [phone] Raina Patterson COPPER PLATE PRINTER VICE PRESIDENT OF TALENT MANAGEMENT Unavailable Encounter Details Date Type Department Care Team (Late st Contact Info) Description 04/06/2023 [facility] Medical Advice [facility] Weight [facility] [address] 4th [place] [address] Tanya Larsen RN Social History [...] documented as of this encounter Care Teams Wastewater Engineer Relationship Specialty Start Date End Date Kaykay Duarte CAMP GUARD [address] [place] [address] PCP - General 10/15/22 Roderick Morelos MD [address] [place] [address] Cardiovascular Disease 02/03/22 Magno Wood MD [address] [place] [address] [id number] Otolaryngology 02/21/22 Sophie Ocasio AuD 909 [place], [place] 222495 Scenic Arts Supervisor Audiology 02/21/22 Henny Rosales APRN VICE PRESIDENT OF TALENT MANAGEMENT [address] [place] [phone] Assigned Heart and Vascular Provider 08/09/[address] [place] [address] Registered Dietitian Dietitian, Registered 09/02/22 Christiane Rodríguez MD 420 [facility] 396 [place], [place] 495775 Otolaryngology 11/12/22 Jing Cadena APRN MOLD SWABBER [address] [place] [address] 450 [place], [place] 005785 Clinical Nurse Specialist Anesthesiology 01/15/23 Radha Lopez, [facility] [address] [place] [address] 079445 Pharmacist Pharmacist 01/16/23 Luis A Escobedo MD [address] [place] [address] 195 [place], [place] 336205 Assigned Surgical Provider 02/07/23 04/15/23 Geri Loza PA-C [address] [place] [address] 503745 Assigned Surgical Provider 04/16/23 Raina Patterson, GINA VICE PRESIDENT OF TALENT MANAGEMENT [address] [place] 535[address] Nurse Practitioner Cardiovascular Disease 05/11/23 documented as of this encounter
--- OUTSIDE RECORDS SUMMARY | 2024-01-11 23:38 | XMS_ITS | Encounter Summary ---
Author Organization [facility] Address [address] [place] [address] Care Team Providers Care Strategic Debriefing Specialist Name Role Phone Roderick Morelos MD Unavailable [phone] Magno Wood MD Unavailable [phone] Sophie Ocasio AuD Unavailable [phone] Henny Rosales ENVIRONMENTAL MONITORING TECHNICIAN SHOW CARD WRITER Unavailable [phone] Unavailable [phone] Kaykay Duarte NP Primary Care Provider Christiane Rodríguez MD Unavailable Jing Cadena ENVIRONMENTAL MONITORING TECHNICIAN AIRCRAFT ELECTRONICS TECHNICAL OFFICER Unavailable Radha Lopez [facility] Unavailable Luis A Escobedo MD Unavailable [phone] Geri LozaC Unavailable [phone] Raina Patterson ENVIRONMENTAL MONITORING TECHNICIAN SHOW CARD WRITER Unavailable [phone] Encounter Details Date Type Department Care Team (Late st Contact Info) Description 03/11/2023 [facility] Medical Advice Initial Department [facility] Social History Tobacco Use Types Packs/Day Years [...] documented as of this encounter Care Teams Strategic Debriefing Specialist Relationship Specialty Start Date End Date Kaykay Duarte CANDY MAKER [address] [place] [address] PCP - General 10/15/22 Roderick Morelos MD [address] [place] 176795 Cardiovascular Disease 02/03/22 Magno Wood MD [address] 132865 Otolaryngology 02/21/22 Sophie Ocasio AuD [address] [place] [address] 012375 Mica Spreader Audiology 02/21/22 Henny Rosales APRN SHOW CARD WRITER [address] [place] [phone] Assigned Heart and Vascular Provider 08/09/[address] 909 [place] [address] Registered Dietitian Dietitian, Registered 09/02/22 Christiane Rodríguez MD 420 [facility] 396 [place] [address] Otolaryngology 11/12/22 Jing Cadena, ENVIRONMENTAL MONITORING TECHNICIAN AIRCRAFT ELECTRONICS TECHNICAL OFFICER 420 [facility] 450 [place], [place] 094435 Clinical Nurse Specialist Anesthesiology 01/15/23 Radha Lopez, [facility] 909 [place] [address] Pharmacist Pharmacist 01/16/23 Luis A Escobedo MD 420 [facility] 195 [place] [address] Assigned Surgical Provider 02/07/23 04/15/23 Geri Loza PA-C 9 [place] [address] Assigned Surgical Provider 04/16/23 Raina Patterson, GINA SHOW CARD WRITER [address] [facility] [address] [place] 791245 Nurse Practitioner Cardiovascular Disease 05/11/23 documented as of this encounter
--- OUTSIDE RECORDS SUMMARY | 2024-01-11 23:38 | XMS_ITS | Encounter Summary ---
Author Organization [facility] Address [address] [place] [address] Care Team Providers Care X Ray Examiner Of Aircraft Name Role Phone Roderick Morelos MD Unavailable [phone] Magno Wood MD Unavailable [phone] Sophie Ocasio AuD Unavailable [phone] Henny Rosales ROADS SUPERINTENDENT APPLIANCE REPAIRER Unavailable [phone] Unavailable [phone] Kaykay Duarte NP Primary Care Provider Christinae Rodríguez MD Unavailable Jing Cadena ROADS SUPERINTENDENT COMPUTER ANALYST SUPERVISOR Unavailable Radha Lopez [facility] Unavailable Luis A Escobedo MD Unavailable [phone] Geri LozaC Unavailable [phone] Raina Patterson ROADS SUPERINTENDENT APPLIANCE REPAIRER Unavailable [phone] Encounter Details Date Type Department Care Team (Late st Contact Info) Description 04/02/2023 [facility] [place] [facility] Weight Management Clinic [address] 4th [place] [address] Tanya Larsen RN Social History [...] of this encounter Care Teams X Ray Examiner Of Aircraft Relationship Specialty Start Date End Date Kaykay Duarte BREAKDOWN WORKER [address] [place] [address] PCP - General 10/15/22 Roderick Morelos MD [address] [place] [address] Cardiovascular Disease 02/03/22 Magno Wood MD [address] [place] [address] 30470455 Otolaryngology 02/21/22 Sophie Ocasio AuD 909 [place], [place] 277715 Hydraulic Dredge Operator Audiology 02/21/22 Henny Rosales APRN APPLIANCE REPAIRER [address] [place] [phone] Assigned Heart and Vascular Provider 08/09/[address] [place] [address] Registered Dietitian Dietitian, Registered 09/02/22 Christiane Rodríguez MD 420 [facility] 396 [place], [place] 452435 Otolaryngology 11/12/22 Jing Cadena APRN COMPUTER ANALYST SUPERVISOR [address] [place] [address] 450 [place], [place] 562875 Clinical Nurse Specialist Anesthesiology 01/15/23 Radha Lopez, [facility] [address] [place] [address] 520015 Pharmacist Pharmacist 01/16/23 Luis A Escobedo MD [address] [place] [address] 195 [place], [place] 455475 Assigned Surgical Provider 02/07/23 04/15/23 Geri Loza PA-C [address] [place] [address] 512175 Assigned Surgical Provider 04/16/23 Raina Patterson, GINA APPLIANCE REPAIRER [address] [place] 943635 Nurse Practitioner Cardiovascular Disease 05/11/23 documented as of this encounter
--- OUTSIDE RECORDS SUMMARY | 2024-01-11 23:38 | XMS_ITS | Referral Summary ---
Author Organization [facility] Address [address] [place] [address] Care Team Providers Care Charger Operator Helper Name Role Phone Roderick Morelos MD Unavailable [phone] Magno Wood MD Unavailable [phone] Sophie Ocasio AuD Unavailable Henny Rosales PACKAGE COLLECTOR EXCHANGE SPECIALIST Unavailable Sharee Oliva RD Unavailable [phone] Kaykay Duarte NP Primary Care Provider Christiane Rodríguez MD Unavailable Jing Cadena PACKAGE COLLECTOR RUM PROCESSING OPERATOR Unavailable Radha Lopez [facility] Unavailable Geri Loza PA-C Unavailable Raina Patterson APRN EXCHANGE SPECIALIST Unavailable Encounters Date Type Department Care Team Description 10/18/2023 [facility] Heart [address] [address] Radha Lopez, [facility] from Last 3 Months Allergies [...] [facility]. No post op complications. 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 Barillas. Starting weight 338lb, BMI [...] Comments Blood Pressure 124/78 03/24/2023 10:20 AM GREEN END DEPARTMENT SUPERVISOR Pulse 70 03/24/2023 10:20 AM GREEN END DEPARTMENT SUPERVISOR Temperature 36.8 ??C (98.2 ??F) 03/24/2023 10:[address] Respiratory Rate 16 03/24/2023 10:20 AM GREEN END DEPARTMENT SUPERVISOR Oxygen Saturation 99% 03/24/2023 10:20 AM GREEN END DEPARTMENT SUPERVISOR Inhaled Oxygen Concentration - - Weight 120.7 kg (266 lb) 04/23/2023 11:55 AM GREEN END DEPARTMENT SUPERVISOR Height 167.6 cm (5' 6) 04/23/2023 11:55 AM GREEN END DEPARTMENT SUPERVISOR Body Mass Index 42.93 04/23/2023 11:55 AM GREEN END DEPARTMENT SUPERVISOR Plan of Treatment Not on file Goals [...] FREE T4 REFLEX Add-On 02/28/2021 1:00 AM GREEN END DEPARTMENT SUPERVISOR 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 [...] - BLOOD ORDERAB LES Performing Organization Address City/[facility]/ZIP Co de Phone Number BREEZE PFT [...] with free T4 reflex (02/28/2021 1:00 AM GREEN END DEPARTMENT SUPERVISOR) TSH 0.86 0.40 - 4.00 mU/L 03/01/2021 4:13 PM GREEN END DEPARTMENT SUPERVISOR LABORATORY Blood STRUCTURE OF RIGHT UPPER LIMB / Unknown Venipuncture / Unknown 02/28/2021 1:00 AM GREEN END DEPARTMENT SUPERVISOR 02/28/2021 1:08 AM GREEN END DEPARTMENT SUPERVISOR Parth Ellis MD LAB - BLOOD ORD ERABLES LABORATORY [facility] Acute Care Lab [address] [facility] Lab (1st floor, no room number) [place] [address], [facility] [phone] from Last 3 Months or Most Recently Relevant to Health Maintenance Additional Health Concerns Active Problems Noted Date Diagnosed Date BRIAN PATHWAY SURGERY IS SCHEDULED 10/15/2022 Advance Directives For more information, please contact: [phone] * Full Code (Latest Code Status on [...] 12:01 PM 05/01/2018 3:45 AM Care Teams Charger Operator Helper Relationship Specialty Start Date End Date Kaykay Duarte, MANAGER OF GLOBAL [address] [place] [address] PCP - General 10/15/22 Roderick Morelos MD [address] [place] [address] Cardiovascular Disease 02/03/22 Magno Wood MD [address] [place] [address] 396 [place], [place] 754365 Otolaryngology 02/21/22 Sophie Ocasio AuD [address] [place] [address] 982305 Kelp Or Seagrass Gatherer Audiology 02/21/22 Henny Rosales APRN EXCHANGE SPECIALIST [address] [place] [address] Assigned Heart and Vascular Provider 08/09/[address]09 [place] [address] Registered Dietitian Dietitian, Registered 09/02/22 Christiane Rodríguez MD 420 [facility] 396 [place], [place] 6[address] Otolaryngology 11/12/22 Jing Cadena, PACKAGE COLLECTOR RUM PROCESSING OPERATOR 420 [facility] 450 [place], [place] 162335 Clinical Nurse Specialist Anesthesiology 01/15/23 Radha Lopez, [facility] [address] [place] [address] 188545 Pharmacist Pharmacist 01/16/23 Geri Loza PA-C [address] [place] [address] 420285 Assigned Surgical Provider 04/16/23 Raina Patterson APRN EXCHANGE SPECIALIST [address] [place], [place] 58[address] Nurse Practitioner Cardiovascular Disease 05/11/23
--- OUTSIDE RECORDS SUMMARY | 2024-01-11 23:38 | XMS_ITS | Encounter Summary ---
Author Organization [place] Address [address] [place] [address]65 Care Team Providers Care Asic Engineer Name Role Phone Roderick Morelos MD Unavailable [phone] Magno Wood MD Unavailable [phone] Sophie Ocasio AuD Unavailable [phone] Henny Rosales RESOURCE DEVELOPMENT MANAGER INKING MACHINE TENDER Unavailable Sharee Oliva RD Unavailable [phone] Kaykay Duarte NP Primary Care Provider Christiane Rodríguez MD Unavailable Jing Cadena RESOURCE DEVELOPMENT MANAGER TAX PROCESSOR Unavailable Radha Lopez [facility] Unavailable Luis A Escobedo MD Unavailable [phone] Geri LozaC Unavailable [phone] Raina Patterson RESOURCE DEVELOPMENT MANAGER INKING MACHINE TENDER Unavailable Encounter Details Date Type Department Care Team (Late st Contact Info) Description 02/18/2023 [facility] [address] 5th [place] [address] Nikky Babb, RN Social History [...] documented as of this encounter Care Teams Asic Engineer Relationship Specialty Start Date End Date Kaykay Duarte VELVET STEAMER [address] [place] [address] PCP - General 10/15/22 Roderick Morelos MD [address] [place] [address] Cardiovascular Disease 02/03/22 Magno Wood MD [address] [place] [address] [id number] Otolaryngology 02/21/22 Sophie Ocasio, Nick [address] [place], [place] [phone] Weft Straightener Audiology 02/21/22 Henny Rosales APRN INKING MACHINE TENDER [address] [place] [phone] Assigned Heart and Vascular Provider 08/09/[address] [place] [address] 892315 Registered Dietitian Dietitian, Registered 09/02/22 Christiane Rodríguez MD [address] [place] [address] 396 [place], [place] 634825 Otolaryngology 11/12/22 Jing Cadena APRN TAX PROCESSOR [address] [place] [address] 450 [place], [place] 726235 Clinical Nurse Specialist Anesthesiology 01/15/23 Radha Lopez, [facility] [address] [place] [address] 366155 Pharmacist Pharmacist 01/16/23 Luis A Escobedo MD [address] [place] [address] 195 [place], [place] 119415 Assigned Surgical Provider 02/07/23 04/15/23 Geri Loza PA-C [address] [place] [address] 954075 Assigned Surgical Provider 04/16/23 Raina Patterson, GINA INKING MACHINE TENDER [address] [place] 932685 Nurse Practitioner Cardiovascular Disease 05/11/23 documented as of this encounter
--- OUTSIDE RECORDS SUMMARY | 2024-01-11 23:38 | XMS_ITS | Encounter Summary ---
Author Organization [facility] Address [address] [place] [address]805 Care Team Providers Care Manager Of Procurement Name Role Phone Roderick Morelos MD Unavailable [phone] Magno Wood MD Unavailable [phone] Sophie Ocasio AuD Unavailable Henny Rosales DIGITAL SOLUTIONS ARCHITECT CUSTOMER RESPONSE REPRESENTATIVE Unavailable Sharee Oliva RD Unavailable [phone] Kaykay Duarte NP Primary Care Provider Christiane Rodríguez MD Unavailable [phone] Jing Cadena DIGITAL SOLUTIONS ARCHITECT RN ASSESSMENT Unavailable Radha Lopez [facility] Unavailable Lius A Escobedo MD Unavailable [phone] Geri LozaC Unavailable [phone] Raina Patterson DIGITAL SOLUTIONS ARCHITECT CUSTOMER RESPONSE REPRESENTATIVE Unavailable [phone] Encounter Details Date Type Department Care Team (Late st Contact Info) Description 03/25/2023 [facility] Advice [facility] [address] 4th [place] [address] Mychart, [place] Social History Tobacco Use Types Packs/Day Years [...] as of this encounter Care Teams Manager Of Procurement Relationship Specialty [place] [address] [place] [address] PCP - General 10/15/22 Roderick Morelos MD [address] [place] [address] Cardiovascular Disease 02/03/22 Magno Wood MD [address] [place] [place] [address] 675395 Otolaryngology 02/21/22 Sophie Ocasio AuD 909 [place], [place] 533345 Elementary School Music Teacher Audiology 02/21/22 Henny Rosales APRN CUSTOMER RESPONSE REPRESENTATIVE [address] [place] [id number] Assigned Heart and Vascular Provider 08/09/[address] [place] [address] [id number] Registered Dietitian Dietitian, Registered 09/02/22 Christiane Rodríguez MD 420 [facility] 396 [place], [place] 690535 Otolaryngology 11/12/22 Jing Cadena APRN RN ASSESSMENT 420 [facility] 450 [place], [place] 436295 Clinical Nurse Specialist Anesthesiology 01/15/23 Radha Lopez, [facility] [address] [place] [address] 065615 Pharmacist Pharmacist 01/16/23 Luis A Escobedo MD [address] [place] [address] 195 [place], [place] 437565 Assigned Surgical Provider 02/07/23 04/15/23 Geri Loza PA-C [address] [place] [address] 541825 Assigned Surgical Provider 04/16/23 Raina Patterson, GINA CUSTOMER RESPONSE REPRESENTATIVE [address] [place] 972745 Nurse Practitioner Cardiovascular Disease 05/11/23 documented as of this encounter
--- OUTSIDE RECORDS SUMMARY | 2024-01-11 23:38 | XMS_ITS | Encounter Summary ---
Author Organization [facility] Address [address] [place] [address] Care Team Providers Care Health Counselor Name Role Phone Roderick Morelos MD Unavailable [phone] Magno Wood MD Unavailable [phone] Sophie Ocasio AuD Unavailable Henny Rosales PAYROLL ACCOUNTING CLERK PIPE FITTER SOFT COPPER Unavailable Sharee Oliva RD Unavailable [phone] Kaykay Duarte NP Primary Care Provider Christiane Rodríguez MD Unavailable [phone] Jing Cadena PAYROLL ACCOUNTING CLERK CONSTRUCTION ANALYST Unavailable Radha Lopez [facility] Unavailable Geri Loza PA-C Unavailable Raina Patterson APRN PIPE FITTER SOFT COPPER Unavailable Encounter Details Date Type Department Care Team (Late st Contact Info) Description 04/23/2023 [facility] [place] 437259 [facility] 4th [place] [address] Kang Griffiths Social History Tobacco [...] documented as of this encounter Care Teams Health Counselor Relationship Specialty Start Date End Date Kaykay Duarte, CANCER REGISTRY MANAGER [address] [place] [address] PCP - General 10/15/22 Roderick Morelos MD [address] [place] [address] Cardiovascular Disease 02/03/22 Magno Wood MD 420 [facility] 396 [place], [place] 628245 Otolaryngology 02/21/22 Sophie Ocasio AuD 909 [place], [place] 371215 High Pressure Kettle Operator Audiology 02/21/22 Henny Rosales APRN PIPE FITTER SOFT COPPER [address] [place] [id number] Assigned Heart and Vascular Provider 08/09/[address] 9 [place], [place] 671055 Registered Dietitian Dietitian, Registered 09/02/22 Christiane Rodríguez MD 420 [facility] 396 [place], [place] 910535 Otolaryngology 11/12/22 Jing Cadena APRN CONSTRUCTION ANALYST 420 [facility] 450 [place] [address] Clinical Nurse Specialist Anesthesiology 01/15/23 Radha Lopez, [facility] [address] [place] [address] 070555 Pharmacist Pharmacist 01/16/23 Geri Loza PA-C [address] [place] [address] 805505 Assigned Surgical Provider 04/16/23 Raina Patterson APRN PIPE FITTER SOFT COPPER [address] [facility] [address] [place] 768265 Nurse Practitioner Cardiovascular Disease 05/11/23 documented as of this encounter
--- OUTSIDE RECORDS SUMMARY | 2024-01-11 23:38 | XMS_ITS | Encounter Summary ---
Author Organization [place] Address [address] [place] [address] Care Team Providers Care Sandwich Wrapper Name Role Phone Roderick Morelos MD Unavailable [phone] Magno Wood MD Unavailable [phone] Sophie Ocasio AuD Unavailable Henny Rosales TALENT DEVELOPMENT COORDINATOR FURNACE KEEPER Unavailable Sharee Oliva RD Unavailable [phone] Kaykay Duarte NP Primary Care Provider Christiane Rodríguez MD Unavailable Jing Cadena TALENT DEVELOPMENT COORDINATOR MANAGER RISK Unavailable Radha Lopez [facility] Unavailable Luis A Escobedo MD Unavailable [phone] Geri LozaC Unavailable [phone] Raina Patterson TALENT DEVELOPMENT COORDINATOR FURNACE KEEPER Unavailable [phone] Encounter Details Date Type Department Care Team (Late st Contact Info) Description 02/17/2023 [facility] Medical Advice [facility] [address] 4th [place] [address] [place], Henny, RN Social History [...] Type Associated Problems Recent Progress Patient-Stated? Author BRINA PATHWAY SURGERY IS SCHEDULED Care Plan BRIAN PATHWAY SURGERY IS SCHEDULED No Luis A Escobedo MD documented as of this encounter Visit Diagnoses Not on filedocumented in this encounter Additional Health Concerns Active Problems Noted Date Diagnosed Date BRIAN PATHWAY SURGERY IS SCHEDULED 10/15/2022 documented as of this encounter Care Teams Sandwich Wrapper Relationship Specialty [place] [address] [place] [address] PCP - General 10/15/22 Roderick Morelos MD [address] [place] 087935 Cardiovascular Disease 02/03/22 Magno Wood MD 420 [facility] 396 [place], [place] 421215 Otolaryngology 02/21/22 Sophie Ocasio AuD 909 [place], [place] 838185 Bulk Pallet Builder Audiology 02/21/22 Henny Rosales APRN FURNACE KEEPER [address] [place] [id number] Assigned Heart and Vascular Provider 08/09/[address] 909 [place], [place] 392435 Registered Dietitian Dietitian, Registered 09/02/22 Christiane Rodríguez MD 420 [facility] 396 [place], [place] 155055 Otolaryngology 11/12/22 Jing Cadena APRN MANAGER RISK 420 [facility] 450 [place] [address] Clinical Nurse Specialist Anesthesiology 01/15/23 Radha Lopez [facility] [address] [place] [address] 357105 Pharmacist Pharmacist 01/16/23 Luis A Escobedo MD 420 [facility] 195 [place], [place] 607195 Assigned Surgical Provider 02/07/23 04/15/23 Geri Loza PA-C 9 [place], [place] 160115 Assigned Surgical Provider 04/16/23 Raina Patterson, GINA FURNACE KEEPER [address] [place] [address] [place] 155405 Nurse Practitioner Cardiovascular Disease 05/11/23 documented as of this encounter
--- OUTSIDE RECORDS SUMMARY | 2024-01-11 23:38 | XMS_ITS | Encounter Summary ---
Author Organization [place] Address [address] [place] [address]27 Care Team Providers Care Geodetic Computator Name Role Phone Roderick Morelos MD Unavailable [phone] Magno Wood MD Unavailable [phone] Sophie Ocasio AuD Unavailable Henny Rosales DATA MODELING ARCHITECT LEAD MECHANICAL ENGINEER Unavailable Sharee Oliva RD Unavailable [phone] Kaykay Duarte DRYWALL APPLICATOR Primary Care Provider Christiane Rodríguez MD Unavailable Jing Cadena DATA MODELING ARCHITECT DIRECTOR OF CORPORATE RESPONSIBILITY Unavailable Radha Lopez [facility] Unavailable Luis A Escobedo MD Unavailable [phone] Geri LozaC Unavailable [phone] Raina Patterson DATA MODELING ARCHITECT LEAD MECHANICAL ENGINEER Unavailable Encounter Details Date Type Department Care Team (Late st Contact Info) Description 03/21/2023 [facility] Adv[facility] [place] 163539 [facility] 4th [place] [address] Luis A Escobedo MD [address] [place] [address] 195 [place] [address] Social History Tobacco Use Types Packs/Day Years [...] documented as of this encounter Care Teams Geodetic Computator Relationship Specialty Start Date End Date Kaykay Duarte, DRYWALL APPLICATOR [address] [place] 894347 PCP - General 10/15/22 Roderick Morelos MD [address] [place], [place] 927415 Cardiovascular Disease 02/03/22 Magno oWod MD 420 [facility] 396 [place], [place] 822055 Otolaryngology 02/21/22 Sophie Ocasio AuD 909 [place], [place] 075925 Risk Management Specialist Audiology 02/21/22 Henny Rosales APRN LEAD MECHANICAL ENGINEER [address] [place] [address] Assigned Heart and Vascular Provider 08/09/[address]09 [place] [address] Registered Dietitian Dietitian, Registered 09/02/22 Christiane Rodríguez MD 420 [facility] 396 [place], [place] 275665 Otolaryngology 11/12/22 Jing Cadena, DATA MODELING ARCHITECT DIRECTOR OF CORPORATE RESPONSIBILITY 420 [facility] 450 [place], [place] 097165 Clinical Nurse Specialist Anesthesiology 01/15/23 Radha Lopez, [facility] 909 [place], [place] 953975 Pharmacist Pharmacist 01/16/23 Luis A Escobedo MD 420 [facility] 195 [place] [address] Assigned Surgical Provider 02/07/23 04/15/23 Geri Loza PA-C 909 [place] [address] Assigned Surgical Provider 04/16/23 Raina Patterson APRN LEAD MECHANICAL ENGINEER [address] [address] [place] [address] Nurse Practitioner Cardiovascular Disease 05/11/23 documented as of this encounter
--- OUTSIDE RECORDS SUMMARY | 2024-01-11 23:38 | XMS_ITS | Encounter Summary ---
Author Organization [place] Address [facility] [place] [address] Care Team Providers Care Transition Nurse Name Role Phone Roderick Morelos MD Unavailable [phone] Magno Wood MD Unavailable [phone] Sophie Ocasio AuD Unavailable Henny Rosales CHILD CARE SUPERVISOR WORK DISTRIBUTOR Unavailable Sharee Oliva [address] Unavailable [phone] Kaykay Duarte NP Primary Care Provider [phone] Christiane Rodríguez MD Unavailable Jing Cadena CHILD CARE SUPERVISOR REFRIGERATING MACHINE OPERATOR Unavailable [phone] Radha Lopez [facility] Unavailable Luis A Escobedo MD Unavailable Geri LozaC Unavailable Raina Ptaterson CHILD CARE SUPERVISOR WORK DISTRIBUTOR Unavailable Encounter Details Date Type Department Care Team (Late st Contact Info) Description 03/17/2023 [facility] Medical Advice [facility] PREOP/PHASE II 2450 [place] [address] Pearl Rocha, RN Social History Tobacco [...] documented as of this encounter Care Teams Transition Nurse Relationship Specialty [place] [address] [place] [address] PCP - General 10/15/22 Roderick Morelos MD [address] [place] [address] Cardiovascular Disease 02/03/22 Magno Wood MD [address] [place] [address] 411195 Otolaryngology 02/21/22 Sophie Ocasio AuD 909 [place], [place] 495095 Regulatory Process Manager Audiology 02/21/22 Henny Rosales APRN WORK DISTRIBUTOR [address] [place] [id number] Assigned Heart and Vascular Provider 08/09/[address] [place] [address] 019395 Registered Dietitian Dietitian, Registered 09/02/22 Christiane Rodríguez MD 420 [facility] 396 [place], [place] 966455 Otolaryngology 11/12/22 Jing Cadena APRN REFRIGERATING MACHINE OPERATOR 420 [facility] 450 [place], [place] 733565 Clinical Nurse Specialist Anesthesiology 01/15/23 Radha Lopez, [facility] [address] [place] [address] 698345 Pharmacist Pharmacist 01/16/23 Luis A Escobedo MD [address] [place] [address] 195 [place], [place] 970485 Assigned Surgical Provider 02/07/23 04/15/23 Geri Loza PA-C [address] [place] [address] 365635 Assigned Surgical Provider 04/16/23 Raina Patterson, GINA WORK DISTRIBUTOR [address] [place] 685725 Nurse Practitioner Cardiovascular Disease 05/11/23 documented as of this encounter
--- OUTSIDE RECORDS SUMMARY | 2024-01-11 23:38 | XMS_ITS | Encounter Summary ---
Author Organization [facility] Address [address] [place] [address] Care Team Providers Care Cryogenics Repairer Name Role Phone Roderick Morelos MD Unavailable [phone] Magno Wood MD Unavailable [phone] Sophie Ocasio AuD Unavailable [phone] Henny Rosales SENIOR CENTER MANAGER CORRECTION OFFICER PENITENTIARY Unavailable Sharee Oliva [address] Unavailable [phone] Kaykay Duarte NP Primary Care Provider Christiane Rodríguez MD Unavailable [phone] Jing Cadena SENIOR CENTER MANAGER CIVIL PREPAREDNESS COORDINATOR Unavailable Radha Lopez [facility] Unavailable Luis A Escobedo MD Unavailable [phone] Geri LozaC Unavailable [phone] Raina Patterson SENIOR CENTER MANAGER CORRECTION OFFICER PENITENTIARY Unavailable [phone] Encounter Details Date Type Department Care Team (Late st Contact Info) Description 03/31/2023 [facility] Medical Advice [facility] [address] 4th [place] [address] Tanya Larsen RN Social History [...] documented as of this encounter Care Teams Cryogenics Repairer Relationship Specialty Start Date End Date Kaykay Duarte STERILE SUPERVISOR [address] [place] [address] PCP - General 10/15/22 Roderick Morelos MD [address] [place] [address] Cardiovascular Disease 02/03/22 Magno Wood MD [address] [place] [address] 33150455 Otolaryngology 02/21/22 Sophie Ocasio AuD 909 [place], [place] 005555 Partner Marketing Manager Audiology 02/21/22 Henny Rosales APRN CORRECTION OFFICER PENITENTIARY [address] [place] [phone] Assigned Heart and Vascular Provider 08/09/[address] [place] [address] Registered Dietitian Dietitian, Registered 09/02/22 Christiane Rodríguez MD 420 [facility] 396 [place], [place] 538975 Otolaryngology 11/12/22 Jing Cadena APRN CIVIL PREPAREDNESS COORDINATOR [address] [place] [address] 450 [place], [place] 788115 Clinical Nurse Specialist Anesthesiology 01/15/23 Radha Lopez, [facility] [address] [place] [address] 509715 Pharmacist Pharmacist 01/16/23 Luis A Escobedo MD [address] [place] [address] 195 [place], [place] 205775 Assigned Surgical Provider 02/07/23 04/15/23 Geri Loza PA-C [address] [place] [address] 741225 Assigned Surgical Provider 04/16/23 Raina Patterson, GINA CORRECTION OFFICER PENITENTIARY [address] [place] 361545 Nurse Practitioner Cardiovascular Disease 05/11/23 documented as of this encounter
--- OUTSIDE RECORDS SUMMARY | 2024-01-11 23:38 | XMS_ITS | Encounter Summary ---
Author Organization [facility] Address [address] [place] [address]19 Care Team Providers Care Movie Theater Usher Name Role Phone Roderick Morelos MD Unavailable [phone] Magno Wood MD Unavailable [phone] Sophie Ocasio AuD Unavailable Henny Rosales SWITCHBOARD OPERATOR PROOF COINS INSPECTOR Unavailable Sharee Oliva RD Unavailable [phone] Kaykay Duarte NP Primary Care Provider Christiane Rodríguez MD Unavailable [phone] Jing Cadena SWITCHBOARD OPERATOR MARKETING MANAGER Unavailable [phone] Radha Lopez [facility] Unavailable Luis A Escobedo MD Unavailable [phone] Geri LozaC Unavailable [phone] Raina Patterson SWITCHBOARD OPERATOR PROOF COINS INSPECTOR Unavailable [phone] Encounter Details Date Type Department Care Team (Late st Contact Info) Description 03/24/2023 [facility] Medical Advice [facility] Weight Management [facility] [address] 4th [place] [address] Angélica Milligan Social History Tobacco [...] of this encounter Care Teams Movie Theater Usher Relationship Specialty Start Date End Date Kaykay Duarte UNDERWEAR TRIMMER [address] [place] [address] PCP - General 10/15/22 Roderick Morelos MD [address] [place] [address] Cardiovascular Disease 02/03/22 Magno Wood MD [address] [place] [address] 112335 Otolaryngology 02/21/22 Sophie Ocasio AuD 909 [place], [place] 272165 Copier Field Service Technician Audiology 02/21/22 Henny Rosales APRN PROOF COINS INSPECTOR [address] [place] [id number] Assigned Heart and Vascular Provider 08/09/[address] 9 [place], [place] 428795 Registered Dietitian Dietitian, Registered 09/02/22 Christiane Rodríguez MD 420 [facility] 396 [place], [place] 077745 Otolaryngology 11/12/22 Jing Cadena APRN MARKETING MANAGER 420 [facility] 450 [place], [place] 809175 Clinical Nurse Specialist Anesthesiology 01/15/23 Radha Lopez [facility] [address] [place] [address] 551325 Pharmacist Pharmacist 01/16/23 Luis A Escobedo MD 420 [facility] 195 [place], [place] 369305 Assigned Surgical Provider 02/07/23 04/15/23 Geri Loza PA-C [address] [place] [address] 566055 Assigned Surgical Provider 04/16/23 Raina Patterson, GINA PROOF COINS INSPECTOR [address] [place] 128755 Nurse Practitioner Cardiovascular Disease 05/11/23 documented as of this encounter
--- OUTSIDE RECORDS SUMMARY | 2024-01-11 23:38 | XMS_ITS | Encounter Summary ---
Author Organization [facility] Address [address] [place] [address] Care Team Providers Care Food Service Utility Worker Name Role Phone Roderick Morelos MD Unavailable [phone] Magno Wood MD Unavailable [phone] Sophie Ocasio AuD Unavailable Henny Rosales AUDIOVISUAL AIDS TECHNICIAN PUBLIC ADDRESS ANNOUNCER Unavailable [phone] Unavailable [phone] Kaykay Duarte NP Primary Care Provider Christiane Rodríguez MD Unavailable [phone] Jing Cadena AUDIOVISUAL AIDS TECHNICIAN [employer] Unavailable Radha Lopez [facility] Unavailable Geri Loza PA-C Unavailable [phone] Raina Patterson APRN PUBLIC ADDRESS ANNOUNCER Unavailable Encounter Details Date Type Department Care Team (Late st Contact Info) Description 10/18/2023 [facility] [address] [address] Radha Lopez, [address] [address] Social History Tobacco Use Types [...] as of this encounter Care Teams Food Service Utility Worker Relationship Specialty Start Date End Date Kaykay Duarte REHABILITATION SERVICES AIDE [address] [place] [address] PCP - General 10/15/22 Roderick Morelos MD [address] [place] [address] Cardiovascular Disease 02/03/22 Magno Wood MD [address] [place] [address] [id number] Otolaryngology 02/21/22 Sophie Ocasio, Nick 909 [place], [place] 967585 Lay Out Carpenter Audiology 02/21/22 Henny Roslaes APRN PUBLIC ADDRESS ANNOUNCER [address] [place] [id number] Assigned Heart and Vascular Provider 08/09/[address] [place] [address] [phone] Registered Dietitian Dietitian, Registered 09/02/22 Christiane Rodríguez MD [address] [place] [address] 396 [place], [place] 638265 Otolaryngology 11/12/22 Jing Cadena APRN [employer] [address] [place] [address] 450 [place], [place] 128815 Clinical Nurse Specialist Anesthesiology 01/15/23 Radha Lopez, [facility] [address] [place] [address] 640435 Pharmacist Pharmacist 01/16/23 Geri Loza PA-C [address] [place] [address] 565005 Assigned Surgical Provider 04/16/23 Raina Patterson APRN PUBLIC ADDRESS ANNOUNCER [address] [facility] [address] [place] 554915 Nurse Practitioner Cardiovascular Disease 05/11/23 documented as of this encounter
--- OUTSIDE RECORDS SUMMARY | 2024-01-11 23:38 | XMS_ITS | Clinical Summary ---
Author Organization [facility] Address [place], [place] [address] Care Team Providers Care Sock Folder Name Role Phone Brandan Burleson MD Unavailable [phone] Pcp, No Primary Care Provider Unavailabl e [...] solution (FLONASE)Indications :Purulent postnasal drainage Inhale 1 [place] into both nostrils 2 times daily. 1 [...] Type Department Care Team Description 11/26/2023 Telephone [facility] [address] [place] [address] Jose Enrique Ricardo PA Concerns (ibuprofen and tylenol not effective for ) 11/25/2023 Telephone [facility] Joint Replacement [facility] [address] [place] [address] Dionisio Agudelo MD Surgery Scheduled 11/20/2023 9:50 AM CDT Office Visit [facility] Joint Replacement [facility] [address] [place] [address] Dionisio Agudelo MD Hip Pain/problem (Right Hip Pain) 11/20/2023 Transcribe Orders [facility] Joint Replacement [facility] [address] [place] [address] Dionisio Agudelo MD 11/20/2023 Travel 11/15/2023 3:42 PM CDT - 11/15/2023 6:12 PM CDT Emergency [address] [address] Monique Ott PA Pelvic joint pain, right [...] age 21-65 05/21/2018 6 (Completed [facility] of [facility]), 05/22/2011 Zoster (shingles) series for age 50+ (1 of 2) 2018 Lipids for age 45-75 02/10/2021 02/11/2016, 06/29/19 15 COVID-19 vaccine series ( season) 2023 11/28/2020, 06/19/2020 Influenza for age 50-64 11/22/2023 12/22/19 16, 01/01/2015, 01/16/2014, Additional history exists Pneumococcal series for age 6-64 Aged Out No longer eligible based on patient's age to complete this topic Medical Devices Implanted Type Area Senior Net Software Developer Device Identifier Shelf Expiration Date Model / Serial / Lot Prosth Shiva [id number] - [id number] Implanted:Qty: 1 on 05/20/2005 at [facility] Ent Implants Right: Ear GYRUS ENT 61# / / Procedures Procedure Name Priority Date/Time Associated Diagnosis Comments XR ANKLE 3 VIEWS RIGHT STAT 11/15/2023 5:15 PM CDT XR KNEE 3 VIEWS RIGHT STAT 11/15/2023 5:13 PM CDT XR HIP 2 OR 3 VIEWS W PELVIS RIGHT STAT 11/15/2023 5:12 PM CDT LIPID PANEL W REFLEX MEASURED LDL Routine 02/11/2016 2:52 PM [employer] Hyperlipidemia, unspecified hyperlipidemia type XR MAMMO RAVI BILAT SCREEN Routine 01/30/2016 9:52 AM [employer] Visit for screening mammogram from Last 3 [...] W REFLEX MEASURED LDL (02/11/2016 2:52 PM [employer]) CHOLESTEROL,TOTAL 271(H) 100 - 199 mg/dL 02/11/2016 8:04 PM [employer] [facility] TRIGLYCERIDES 178(H) <150 mg/dL 02/11/2016 8:04 PM [employer] [facility] HDL CHOLESTEROL 49 >40 mg/dL 6 8:04 PM [employer] [facility] NON-HDL CHOLESTEROL 222(H) <145 mg/dl 02/11/2016 8:04 PM [employer] [facility] CHOL/HDL RATIO 5.53(H) <4.50 02/11/2016 8:04 PM [employer] [facility] LDL CHOLESTEROL 186(H) <=130 mg/dL 02/11/2016 8:04 PM [employer] [facility] PATIENT STATUS NON-FASTI NG 02/11/2016 8:04 PM [employer] [facility] Blood BLOOD SPECIMEN / Unknown Venipuncture / Unknown 02/11/2016 2:52 PM [employer] 02/11/2016 2:52 PM [employer] [facility] [address] [place] [address], [place] * XR MAMMO RAVI SCREEN BILAT (01/30/2016 9:52 AM [employer]) Anatomical Region Laterality Modality BREASTS, Breast Left, Breast Right Bilateral Mammography Impressions 01/30/2016 11:17 AM [employer] ??There is no radiographic evidence for malignancy. ??Recommend annual mammograms. A lay language report of this examination will be provided to the patient. MAMMOGRAM ASSESSMENT: ??ACR 2 Benign Narrative 01/30/2016 11:17 AM [employer] XR MAMMO RAVI SCREEN JANINE [[id number]] CLINICAL HISTORY: ??This is an asymptomatic 45 y.o. patient. INDICATION FOR EXAM: Mammogram Screening. TECHNIQUE: CC & MLO views were obtained. ??This digital study was evaluated with the assistance of Computer-Aided Detection. Breast Tomosynthesis was used in interpretation. COMPARISON FILMS: Yes 02/10/15 [facility] 01/18/14 [facility] FINDINGS: ??Mammographically, the breast tissue has scattered fibroglandular densities. ??No suspicious masses or microcalcifications. ?? Benign appearing calcifications within both breasts. Brandan Burleson MD MAMMO from Last 3 Months or Most Recently Relevant to Health Maintenance Advance Directives * Full Code (Latest Code Status on File) Date Activated Date Inactivated Comments 05/20/2005 7:01 AM 05/20/2005 4:28 PM Care Teams Sock Folder Relationship Specialty Start Date End Date Pcp, No . PCP - General 03/24/20 Brandan Burleson MD Gynecology Obstetrics and Gynecology 09/19/15
--- OUTSIDE RECORDS SUMMARY | 2024-01-11 23:39 | XMS_ITS | Encounter Summary ---
Author Organization [facility] Address [address] [place] [address] Care Team Providers Care Carving Machine Operator Name Role Phone Roderick Morelos MD Unavailable [phone] Magno Wood MD Unavailable Sophie Ocasio Unavailable [phone] Henny Rosales ENGINEERING GEOLOGIST CASHIER ASSOCIATE Unavailable [phone] Unavailable [phone] Kaykay Duarte SHIPPER RECEIVER Primary Care Provider [phone] Christiane Rodríguez MD Unavailable Luis A Escobedo MD Unavailable [phone] Chely Fernandez-C Unavailable [phone] Jing Cadena APRN TUBE DISPATCHER Unavailable Radha Lopez [facility] Unavailable [phone] Luis A Escobedo MD Unavailable [phone] Geri LozaC Unavailable [phone] Raina Patterson APRN CASHIER ASSOCIATE Unavailable [phone] Encounter Details Date Type Department Care Team (Late st Contact Info) Description 11/21/2022 MyC Medical Advice [facility] [place] [address] [facility] 4th [place] [phone] Geri Loza PA-C [address] [place] [address] 457355 Social History Tobacco Use Types Packs/Day Years [...] documented as of this encounter Care Teams Carving Machine Operator Relationship Specialty Start Date End Date Kaykya Duarte SHIPPER RECEIVER [address] [place] [address] PCP - General 10/15/22 Roderick Morelos MD [address] [place] [address] Cardiovascular Disease 02/03/22 Magno Wood MD [address] [facility] [address] [place], [place] 2626[address] Otolaryngology 02/21/22 Sophie Ocasio AuD [address] [place], [place] 232225 Paraprofessional Education Assistant Audiology 02/21/22 Henny Rosales APRN CASHIER ASSOCIATE [address] [place] [phone] Assigned Heart and Vascular Provider 08/09/[address] [place] [address] 365175 Registered Dietitian Dietitian, Registered 09/02/22 Christiane Rodríguez MD 420 [facility] 396 [place], [place] 897115 Otolaryngology 11/12/22 Luis A Escobedo MD 420 [facility] 195 [place] [address] Assigned Surgical Provider 11/01/22 11/28/22 Chely Fernandez PA-C [address] [place] [address] [id number] Assigned Surgical Provider 11/29/22 02/06/23 Jing Cadena ENGINEERING GEOLOGIST TUBE DISPATCHER 420 [facility] 450 [place], [place] 836845 Clinical Nurse Specialist Anesthesiology 01/15/23 Radha Lopez [facility] [address] [place] [address] [phone] Pharmacist Pharmacist 01/16/23 Luis A Escobedo MD 420 [facility] 195 [place] [address] Assigned Surgical Provider 02/07/23 04/15/23 Geri Loza PA-C 909 [place] [address] Assigned Surgical Provider 04/16/23 Raina Patterson APRN [facility] [address] [place], [place] 376[address] Nurse Practitioner Cardiovascular Disease 05/11/23 documented as of this encounter
--- OUTSIDE RECORDS SUMMARY | 2024-01-11 23:39 | XMS_ITS | Encounter Summary ---
Author Organization [facility] Address [address] [place] [address] Care Team Providers Care Certified Prosthetist Vice President Name Role Phone Roderick Morelos MD Unavailable [phone] Magno Wood MD Unavailable [phone] Sophie Ocasio AuD Unavailable Henny Rosales FREIGHT LOADER INSPECTOR MOTOR VEHICLES Unavailable [address]e Ol[address] Unavailable [phone] Kaykay Duarte CHARGING PLUG PLACER Primary Care Provider Christiane Rodríguez MD Unavailable Chely FernandezC Unavailable [phone] Jing Cadena FREIGHT LOADER ASSISTANT PROFESSOR OF ECONOMICS Unavailable Radha Lopez [facility] Unavailable [phone] Luis A Escobedo MD Unavailable [phone] Geri LozaC Unavailable [phone] Raina Patterson FREIGHT LOADER INSPECTOR MOTOR VEHICLES Unavailable [phone] Encounter Details Date Type Department Care Team (Late st Contact Info) Description 01/21/[address] [facility] [address] [place] [address] Radha Dominguez, RN 420 [facility] 195 [place] [address] Social History Tobacco Use Types [...] as of this encounter Care Teams Certified Prosthetist Vice President Relationship Specialty [place] [address] [place] [address] PCP - General 10/15/22 Roderick Morelos MD [address] [place] [address] Cardiovascular Disease 02/03/22 Magno Wood MD 420 [facility] 396 [place], [place] 7807[address] Otolaryngology 02/21/22 Sophie Ocasio AuD [address]09 [place], [place] 955[address] Rn Enterostomal Audiology 02/21/22 Henny Rosales, FREIGHT LOADER INSPECTOR MOTOR VEHICLES [address] [place] [phone] Assigned Heart and Vascular Provider 08/09/[address] [place] [address] 635365 Registered Dietitian Dietitian, Registered 09/02/22 Christiane Rodríguez MD [address] [place] [address] 396 [place], [place] 617025 Otolaryngology 11/12/22 Chely Fernandez PA-C [address] [place] [address] [id number] Assigned Surgical Provider 11/29/22 02/06/23 Jing Cadena APRN ASSISTANT PROFESSOR OF ECONOMICS [address] [place] [address] 450 [place] [address] Clinical Nurse Specialist Anesthesiology 01/15/23 Radha Lopez, [facility] [address] [place] [address] 648505 Pharmacist Pharmacist 01/16/23 Luis A Escobedo MD [address] [place] [address] 195 [place], [place] 188265 Assigned Surgical Provider 02/07/23 04/15/23 Geri Loza PA-C [address] [place] [address] 686875 Assigned Surgical Provider 04/16/23 Raina Patterson APRN [facility] [address] [facility] [address] [place] [address] Nurse Practitioner Cardiovascular Disease 05/11/23 documented as of this encounter
--- OUTSIDE RECORDS SUMMARY | 2024-01-11 23:39 | XMS_ITS | Encounter Summary ---
Author Organization [facility] Address [address] [place] [address] Care Team Providers Care Supervisor Mapping Name Role Phone Roderick Morelos MD Unavailable [phone] Magno Wood MD Unavailable [phone] Sophie Ocasio AuD Unavailable Henny Rosales TEACHER DRAMA BANKMAN Unavailable Sharee Ol[address] Unavailable [phone] Kaykay Duarte ARCHITECTURE PROFESSOR Primary Care Provider Christiane Rodríguez MD Unavailable Chely FernandezC Unavailable [phone] Jing Cadena TEACHER DRAMA CATCHER HELPER Unavailable Radha Lopez [facility] Unavailable Luis A Escobedo MD Unavailable [phone] Geri LozaC Unavailable [phone] Raina Patterson TEACHER DRAMA BANKMAN Unavailable [phone] Encounter Details Date Type Department Care Team (Late st Contact Info) Description 01/09/2023 [facility] [address] [place] [address] Radha Dominguez, RN 420 [facility] 195 [place] [address] Social History Tobacco Use Types [...] as of this encounter Care Teams Supervisor Mapping Relationship Specialty [place] [address] [place] [address] PCP - General 10/15/22 Roderick Morelos MD [address] [place] [address] Cardiovascular Disease 02/03/22 Magno Wood MD 420 [facility] 396 [place], [place] 743555 Otolaryngology 02/21/22 Sophie Ocasio AuD [address] [place], [place] 218725 Puttying And Calking Supervisor Audiology 02/21/22 Henny Rosales, TEACHER DRAMA BANKMAN [address] [place] [phone] Assigned Heart and Vascular Provider 08/09/[address] [place] [address] [phone] Registered Dietitian Dietitian, Registered 09/02/22 Christiane Rodríguez MD [address] [place] [address] 396 [place], [place] 565375 Otolaryngology 11/12/22 Chely Fernandez PA-C [address] [place] [address] 785045 Assigned Surgical Provider 11/29/22 02/06/23 Jing Cadena APRN CATCHER HELPER [address] [place] [address] 450 [place] [address] Clinical Nurse Specialist Anesthesiology 01/15/23 Radha Lopez, [facility] [address] [place] [address] 140855 Pharmacist Pharmacist 01/16/23 Luis A Escobedo MD [address] [place] [address] 195 [place], [place] 904745 Assigned Surgical Provider 02/07/23 04/15/23 Geri Loza PA-C [address] [place] [address] 010565 Assigned Surgical Provider 04/16/23 Raina Patterson APRN [facility] [address] [facility] [address] [place] [address] Nurse Practitioner Cardiovascular Disease 05/11/23 documented as of this encounter
--- OUTSIDE RECORDS SUMMARY | 2024-01-11 23:39 | XMS_ITS | Encounter Summary ---
Author Organization [facility] Address [address] [place] [address] Care Team Providers Care Machine Stone Polisher Name Role Phone Roderick Morelos MD Unavailable [phone] Magno Wood MD Unavailable [phone] Sophie Ocasio Unavailable [phone] Henny Rosales WELDER APPRENTICE COMBINATION NETWORK COORDINATOR Unavailable [phone] Unavailable [phone] Kaykay Duarte SAMPLE TAKER OPERATOR Primary Care Provider [phone] Christiane Rodríguez MD Unavailable Luis A Escobedo MD Unavailable [phone] Chely FernandezC Unavailable [phone] Jing Cadena APRN TAP BUILDER Unavailable [phone] Radha Lopez [facility] Unavailable [phone] Luis A Escobedo MD Unavailable [phone] Geri LozaC Unavailable [phone] Raina Patterson APRN NETWORK COORDINATOR Unavailable [phone] Encounter Details Date Type Department Care Team (Late st Contact Info) Description 10/23/2022 External Order Results [facility] [address] [place] [address] Outside, Provider Class 3 severe obesity with [...] (10/23/2022 11:20 AM CDT) Pathologist [facility] Vitamin A (External) 0.82 0.30 - [...] (10/23/2022 11:20 AM CDT) Pathologist [facility] Vitamin B12 (External) 294 213 - 816 pg/mL NON-INTERFACED (ONBASE SCANS) Blood BLOOD SPECIMEN / Unknown 10/23/2022 11:20 AM CDT Narrative [facility] - 10/24/2022 1:41 PM CDT Verified by Gisel Izaguirre on 10/24/2022. Geri Loza PA-C LAB - BLOOD ORDERAB LES [facility] NON-INTERFACED (ONBASE SCANS) * Ferritin (10/23/2022 11:20 AM CDT) Pathologist [facility] Ferritin (External) 88 9 - 204 ng/mL NON-INTERFACED (ONBASE SCANS) Blood BLOOD SPECIMEN / Unknown 10/23/2022 11:20 AM CDT Narrative [facility] - 10/24/2022 1:41 PM CDT Verified by Gisel Izaguirre on 10/24/2022. Maryj OLucila Loza PA-C LAB - BLOOD ORDERAB LES [...] - BLOOD ORDERAB LES Performing Organization Address City/[facility]/ZIP Co de Phone Number [facility] P[facility] NON-INTERFACED [...] - BLOOD ORDERABL ES Performing Organization Address [facility]/ZIP Co de Phone Number [facility] NON-INTERFACED [...] - BLOOD ORDERABL ES Performing Organization Address [facility]/ZIP Co de Phone Number [facility] PFT NON-INTERFACED [...] as of this encounter Care Teams Machine Stone Polisher Relationship Specialty [place] [address] [place] [address] PCP - General 10/15/22 Roderick Morelos MD [address] [place], [place] 0[address] Cardiovascular Disease 02/03/22 Magno Wood MD 420 [facility] 396 [place], [place] 6[address] Otolaryngology 02/21/22 Sophie Ocasio AuD 909 [place], [place] 054975 Drum Carrier Audiology 02/21/22 Henny Rosales, WELDER APPRENTICE COMBINATION NETWORK COORDINATOR [address] [place] [address] Assigned Heart and Vascular Provider 08/09/[address] [place], [place] 885055 Registered Dietitian Dietitian, Registered 09/02/22 Christiane Rodríguez MD 420 [facility] 396 [place], [place] 872335 Otolaryngology 11/12/22 Luis A Escobedo MD [address] [place] [address] 195 [place], [place] 494235 Assigned Surgical Provider 11/01/22 11/28/22 Chely Fernandez PA-C [address] [place] [address] 137135 Assigned Surgical Provider 11/29/22 02/06/23 Jing Cadena, WELDER APPRENTICE COMBINATION TAP BUILDER 420 [facility] 450 [place] [address] Clinical Nurse Specialist Anesthesiology 01/15/23 Radha Lopez [facility] 9 [place], [place] 121835 Pharmacist Pharmacist 01/16/23 Luis A Escobedo MD 420 [facility] 195 [place], [place] 849935 Assigned Surgical Provider 02/07/23 04/15/23 Geri Loza PA-C 909 [place] [address] Assigned Surgical Provider 04/16/23 Raina Patterson APRN CNP [address] [facility] [address] [place] [address] Nurse Practitioner Cardiovascular Disease 05/11/23 documented as of this encounter
--- OUTSIDE RECORDS SUMMARY | 2024-01-11 23:39 | XMS_ITS | Encounter Summary ---
Author Organization [facility] Address [address] [place] [address] Care Team Providers Care Telegraph And Teletype Operator Name Role Phone Roderick Morelos MD Unavailable [phone] Magno Wood MD Unavailable [phone] Sophie Ocasio Unavailable [phone] Henny Rosales ELEVATOR TROUBLESHOOTER SOCK IRONER Unavailable [phone] Unavailable [phone] Kaykay Duarte SEISMOGRAPH SUPERVISOR Primary Care Provider [phone] Christiane Rodríguez MD Unavailable Luis A Escobedo MD Unavailable [phone] Chely FernandezC Unavailable [phone] Jing Cadena APRN TENANT RELATIONS COORDINATOR Unavailable Radha Lopez [facility] Unavailable [phone] Luis A Escobedo MD Unavailable [phone] Geri LozaC Unavailable [phone] Raina Patterson APRN SOCK IRONER Unavailable [phone] Encounter Details Date Type Department Care Team (Late st Contact Info) Description 10/23/2022 External Order Results [facility] [address] [place] [address] Outside, Provider Class 3 severe obesity with [...] documented as of this encounter Care Teams Telegraph And Teletype Operator Relationship Specialty [place] [address] [place] [address] PCP - General 10/15/22 Roderick Morelos MD [address] [place] 968775 Cardiovascular Disease 02/03/22 Magno Wood MD 420 [facility] 396 [place], [place] 9[address] Otolaryngology 02/21/22 Sophie Ocasio AuD 909 [place], [place] 474315 Electrician Sound Audiology 02/21/22 Henny Rosales APRN SOCK IRONER [address] [place] [phone] Assigned Heart and Vascular Provider 08/09/[address] [place] [address] [phone] Registered Dietitian Dietitian, Registered 09/02/22 Christiane Rodríguez MD [address] [place] [address] 396 [place], [place] 418[address] Otolaryngology 11/12/22 Luis A Escobedo MD [address] [place] [address] 695175 Assigned Surgical Provider 11/01/22 11/28/22 Chely Fernandez PA-C [address] [place] [address] [phone] Assigned Surgical Provider 11/29/22 02/06/23 Jing Cadena, ELEVATOR TROUBLESHOOTER TENANT RELATIONS COORDINATOR [address] [place] [address] 622225 Clinical Nurse Specialist Anesthesiology 01/15/23 Radha Lopez, [facility] [address] [place] [address] [phone] Pharmacist Pharmacist 01/16/23 Luis A Escobedo MD [address] [place] [address] 797695 Assigned Surgical Provider 02/07/23 04/15/23 Geri Loza PA-C [address] [place] [address] 965175 Assigned Surgical Provider 04/16/23 Raina Patterson APRN [facility] [address] [place] [address] Nurse Practitioner Cardiovascular Disease 05/11/23 documented as of this encounter
--- OUTSIDE RECORDS SUMMARY | 2024-01-11 23:39 | XMS_ITS | Encounter Summary ---
Author Organization [facility] Address [address] [place] [address] 9[address]20 Care Team Providers Care Senior Compensation Consultant Name Role Phone Roderick Morelos MD Unavailable [phone] Magno Wood MD Unavailable [phone] Sophie Ocasio AuD Unavailable Henny Rosales GAS SUBSTATION OPERATOR LAW CLERK Unavailable [phone] Unavailable [phone] Kaykay Duarte OTR REFRIGERATED CDL TRUCK DRIVER Primary Care Provider Christiane Rodríguez MD Unavailable [phone] Chely FernandezC Unavailable [phone] Jing Cadena GAS SUBSTATION OPERATOR GLAZIER APPRENTICE Unavailable Radha Lopez [facility] Unavailable Luis A Escobedo MD Unavailable [phone] Geri LozaC Unavailable Raina Patterson GAS SUBSTATION OPERATOR LAW CLERK Unavailable [phone] Encounter Details Date Type Department Care Team (Late st Contact Info) Description 12/04/2022 [facility] [address] [place] [address] Kang Griffiths Social History Tobacco [...] as of this encounter Care Teams Senior Compensation Consultant Relationship Specialty [place] [address] [facility] [place] [address] PCP - General 10/15/22 Roderick Morelos MD [address] [place] [address] Cardiovascular Disease 02/03/22 Magno Wood MD 420 [facility] 396 [place], [place] 606945 Otolaryngology 02/21/22 Sophie Ocasio AuD 909 [place], [place] 533125 Truck Engine Assembler Audiology 02/21/22 Henny Rosales, GAS SUBSTATION OPERATOR LAW CLERK [address] [place] [address] Assigned Heart and Vascular Provider 08/09/[address] [place] [address] 414145 Registered Dietitian Dietitian, Registered 09/02/22 Christiane Rodríguez MD 420 [facility] 396 [place], [place] 236725 Otolaryngology 11/12/22 Chely Fernandez PA-C [address] [place] [address] 326565 Assigned Surgical Provider 11/29/22 02/06/23 Jing Cadena GAS SUBSTATION OPERATOR GLAZIER APPRENTICE [address] [place] [address] 450 [place] [address] Clinical Nurse Specialist Anesthesiology 01/15/23 Radha Lopez, [facility] [address] [place] [address] [phone] Pharmacist Pharmacist 01/16/23 Luis A Escobedo MD 420 [facility] 195 [place], [place] 575855 Assigned Surgical Provider 02/07/23 04/15/23 Geri Loza PA-C [address] [place] [address] 901305 Assigned Surgical Provider 04/16/23 Raina Patterson, GAS SUBSTATION OPERATOR LAW CLERK [address] [facility] [address] [place] 717155 Nurse Practitioner Cardiovascular Disease 05/11/23 documented as of this encounter
--- OUTSIDE RECORDS SUMMARY | 2024-01-11 23:39 | XMS_ITS | Encounter Summary ---
Author Organization [facility] Address [address] [place] [address] 98295 Care Team Providers Care Collarette Separator Name Role Phone Roderick Morelos MD Unavailable [phone] Magno Wood MD Unavailable [phone] Sophie Ocasio Unavailable [phone] Henny Rosales SCREENING SPECIALIST DIETIST Unavailable [phone] Unavailable Kaykay Duarte PARTS CATALOGUER Primary Care Provider [phone] Christiane Rodríguez MD Unavailable [phone] Luis A Escobedo MD Unavailable [phone] Chely Fernandez-C Unavailable [phone] Jing Cadena APRN ENGINEER PROCESS Unavailable [phone] Radha Lopez [facility] Unavailable [phone] Luis A Escobedo MD Unavailable [phone] Geri LozaC Unavailable [phone] Raina Patterson APRN DIETIST Unavailable [phone] Encounter Details Date Type Department Care Team (Late st Contact Info) Description 11/07/2022 [facility] Mcdaniel 909 [facility] 4th [place] [address] Geri Loza PA-C [address] [place] [address] 826075 Social History Tobacco Use Types Packs/Day Years [...] documented as of this encounter Care Teams Collarette Separator Relationship Specialty Start Date End Date Kaykay Duarte PARTS CATALOGUER [address] [place] [address] PCP - General 10/15/22 Roderick Morelos MD [address] [place] 983665 Cardiovascular Disease 02/03/22 Magno Wood MD [address] [place] [facility] 396 [place], [place] 960815 Otolaryngology 02/21/22 Sophie Ocasio AuD 909 [place], [place] 348785 Database Architect Audiology 02/21/22 Henny Rosales APRN DIETIST [address] [place] [address] Assigned Heart and Vascular Provider 08/09/[address] [place] [address] 905635 Registered Dietitian Dietitian, Registered 09/02/22 Christiane Rodríguez MD 420 [facility] 396 [place], [place] 622685 Otolaryngology 11/12/22 Luis A Escobedo MD 420 [facility] 195 [place] [address] Assigned Surgical Provider 11/01/22 11/28/22 Chely Fernandez PA-C [address] [place] [address] 276265 Assigned Surgical Provider 11/29/22 02/06/23 Jing Cadena SCREENING SPECIALIST ENGINEER PROCESS 420 [facility] 450 [place], [place] 982495 Clinical Nurse Specialist Anesthesiology 01/15/23 Radha Lopez [facility] [address] [place] [address] 241475 Pharmacist Pharmacist 01/16/23 Luis A Escobedo MD 420 [facility] 195 [place] [address] Assigned Surgical Provider 02/07/23 04/15/23 Geri Loza PA-C 909 [place] [address] Assigned Surgical Provider 04/16/23 Raina Patterson APRN [facility] [address] [place], [place] 983645 Nurse Practitioner Cardiovascular Disease 05/11/23 documented as of this encounter
--- OUTSIDE RECORDS SUMMARY | 2024-01-11 23:39 | XMS_ITS | Encounter Summary ---
Author Organization [facility] Address [address] [place] [address] 02045 Care Team Providers Care Mold Making Supervisor Name Role Phone Roderick Morelos MD Unavailable [phone] Magno Wood MD Unavailable [phone] Sophie Ocasio AuD Unavailable Henny Rosales NOC TECHNICIAN PATIENT SERVICE REPRESENTATIVE Unavailable Sharee Oliva RD Unavailable [phone] Kaykay Duarte SOFTWARE TEST ENGINEER Primary Care Provider Christiane Rodríguez MD Unavailable Chely FernandezC Unavailable [phone] Jing Cadena NOC TECHNICIAN BORDEREAU CLERK Unavailable Radha Lopez [facility] Unavailable [phone] Luis A Escobedo MD Unavailable [phone] Geri LozaC Unavailable [phone] Raina Patterson NOC TECHNICIAN PATIENT SERVICE REPRESENTATIVE Unavailable [phone] Encounter Details Date Type Department Care Team (Late st Contact Info) Description 01/14/2023 [facility] [address] [place] [address] Radha Dominguez, RN 420 [facility] 195 [place] [address] Social History Tobacco Use Types [...] as of this encounter Care Teams Mold Making Supervisor Relationship Specialty [place] [address] [place] [address] PCP - General 10/15/22 Roderick Morelos MD [address] [place] [address] Cardiovascular Disease 02/03/22 Magno Wood MD 420 [facility] 396 [place], [place] 388205 Otolaryngology 02/21/22 Sophie Ocasio AuD 909 [place], [place] 315305 Crisis Intervention Specialist Audiology 02/21/22 Henny Rosales, NOC TECHNICIAN PATIENT SERVICE REPRESENTATIVE [address] [place] [address] Assigned Heart and Vascular Provider 08/09/[address] [place] [address] 522285 Registered Dietitian Dietitian, Registered 09/02/22 Christiane Rodríguez MD [address] [place] [address] 396 [place], [place] 732695 Otolaryngology 11/12/22 Chely Fernandez PA-C [address] [place] [address] 048825 Assigned Surgical Provider 11/29/22 02/06/23 Jing Cadena APRN BORDEREAU CLERK [address] [place] [address] 450 [place] [address] Clinical Nurse Specialist Anesthesiology 01/15/23 Radha Lopez, [facility] [address] [place] [address] 209515 Pharmacist Pharmacist 01/16/23 Luis A Escobedo MD [address] [place] [address] 195 [place], [place] 110435 Assigned Surgical Provider 02/07/23 04/15/23 Geri Loza PA-C [address] [place] [address] 326035 Assigned Surgical Provider 04/16/23 Raina Patterson APRN [facility] [address] [facility] [address] [place] [address] Nurse Practitioner Cardiovascular Disease 05/11/23 documented as of this encounter
--- OUTSIDE RECORDS SUMMARY | 2024-01-11 23:39 | XMS_ITS | Encounter Summary ---
Author Organization [facility] Address [address] [place] [address] 70432 Care Team Providers Care Principal Biostatistician Name Role Phone Roderick Morelos MD Unavailable [phone] Magno Wood MD Unavailable [phone] Sophie Ocasio AuD Unavailable Henny Rosales STEAM GIGGER MACHINE PROGRAMMER Unavailable Sharee Oliva RD Unavailable [phone] Kaykay Duarte ROLLING ATTENDANT Primary Care Provider Christiane Rodríguez MD Unavailable [phone] Chely FernandezC Unavailable [phone] Jing Cadena STEAM GIGGER ACID DIPPER Unavailable [phone] Radha Lopez [facility] Unavailable Luis A Escobedo MD Unavailable [phone] Geri LozaC Unavailable [phone] Raina Patterson STEAM GIGGER MACHINE PROGRAMMER Unavailable [phone] Encounter Details Date Type Department Care Team (Late st Contact Info) Description 01/26/2023 [facility] [address] [place] [address] Geri Loza PA-C 909 [place], [place] 693305 Social History Tobacco Use Types Packs/Day Years [...] 01/26/2023 at 9:59 AM by Tamera Bhardwaj DIAL PROJECT MANAGER documented in this encounter Plan of [...] documented as of this encounter Care Teams Principal Biostatistician Relationship Specialty Start Date End Date Kaykay Duarte, ROLLING ATTENDANT [address] [place] [address] PCP - General 10/15/22 Roderick Morelos MD [address] [place] [address] Cardiovascular Disease 02/03/22 Magno Wood MD [address] [place] [address] Otolaryngology 02/21/22 Sophie Ocasio AuD [address] [place] [address] 662545 Mat Machine Operator Audiology 02/21/22 Henny Rosales APRN MACHINE PROGRAMMER 6405 [facility] [address] [place] [address] Assigned Heart and Vascular Provider 08/09/[address] [place] [address] 646325 Registered Dietitian Dietitian, Registered 09/02/22 Christiane Rodríguez MD [address] [place] [address] 174555 Otolaryngology 11/12/22 Chely Fernandez PA-C [address] [place] [address] 886875 Assigned Surgical Provider 11/29/22 02/06/23 Jing Cadena APRN ACID DIPPER [address] [place] [address] [phone] Clinical Nurse Specialist Anesthesiology 01/15/23 Radha Lopez, [facility] [address] [place] [address] 60359 Pharmacist Pharmacist 01/16/23 Luis A Escobedo MD [address] [place] [address] 85768 Assigned Surgical Provider 02/07/23 04/15/23 Geri Loza PA-C [address] [place] [address] 87250 Assigned Surgical Provider 04/16/23 Raina Patterson APRN MACHINE PROGRAMMER [address] [place] [address] Nurse Practitioner Cardiovascular Disease 05/11/23 documented as of this encounter
--- OUTSIDE RECORDS SUMMARY | 2024-01-11 23:39 | XMS_ITS | Encounter Summary ---
Author Organization [facility] Address [address] [place] [address] 39339 Care Team Providers Care Gas Line Servicer Name Role Phone Roderick Morelos MD Unavailable [phone] Magno Wood MD Unavailable [phone] Sophie Ocasio AuD Unavailable Henny Rosales YARDER STATION WORKER Unavailable [phone] Unavailable [phone] Kaykay Duarte PUNCH MACHINE OPERATOR Primary Care Provider Christiane Rodríguez MD Unavailable [phone] Chely FernandezC Unavailable [phone] Jing Cadena YARDER CONTENT PRODUCER Unavailable aRdha Lopez [facility] Unavailable Luis A Escobedo MD Unavailable [phone] Geri LozaC Unavailable [phone] Raina Patterson YARDER STATION WORKER Unavailable [phone] Encounter Details Date Type Department Care Team (Late st Contact Info) Description 01/09/2023 [facility] [address] [place] [address] Radha Dominguez, RN 420 [facility] 195 [place] [address] Social History Tobacco Use Types [...] documented as of this encounter Care Teams Gas Line Servicer Relationship Specialty [place] [address] [place] [address] PCP - General 10/15/22 Roderick Morelos MD [address] [place] [address] Cardiovascular Disease 02/03/22 Magno Wood MD 420 [facility] 396 [place], [place] 255995 Otolaryngology 02/21/22 Sophie Ocasio AuD 909 [place], [place] 117555 Rescue Instructor Audiology 02/21/22 Henny Rosales, YARDER STATION WORKER [address] [place] [address] Assigned Heart and Vascular Provider 08/09/[address] [place] [address] [phone] Registered Dietitian Dietitian, Registered 09/02/22 Christiane Rodríguez MD [address] [place] [address] 396 [place], [place] 614545 Otolaryngology 11/12/22 Chely Fernandez PA-C [address] [place] [address] 413035 Assigned Surgical Provider 11/29/22 02/06/23 Jing Cadena APRN CONTENT PRODUCER [address] [place] [address] 450 [place] [address] Clinical Nurse Specialist Anesthesiology 01/15/23 Radha Lopez, [facility] [address] [place] [address] 623805 Pharmacist Pharmacist 01/16/23 Luis A Escobedo MD [address] [place] [address] 195 [place], [place] 877915 Assigned Surgical Provider 02/07/23 04/15/23 Geri Loza PA-C [address] [place] [address] 661755 Assigned Surgical Provider 04/16/23 Raina Patterson APRN [facility] [address] [facility] [address] [place] [address] Nurse Practitioner Cardiovascular Disease 05/11/23 documented as of this encounter
--- OUTSIDE RECORDS SUMMARY | 2024-01-11 23:39 | XMS_ITS | Encounter Summary ---
Author Organization [facility] Address [address] [place] [address] 50249 Care Team Providers Care Press Operator Heavy Duty Name Role Phone Roderick Morelos MD Unavailable [phone] Magno Wood MD Unavailable [phone] Sophie Ocasio AuD Unavailable [phone] Henny Rosales BUSINESS BANKER FRAMING MILL OPERATOR Unavailable Sharee Oliva RD Unavailable [phone] Kaykay Duarte RADIO INTERFERENCE TROUBLE SHOOTER Primary Care Provider Christiane Rodríguez MD Unavailable [phone] Chely FernandezC Unavailable [phone] Jing Cadena BUSINESS BANKER ROLL COVERER Unavailable Radha Lopez [facility] Unavailable Luis A Escobedo MD Unavailable [phone] Geri LozaC Unavailable [phone] Raina Patterson BUSINESS BANKER FRAMING MILL OPERATOR Unavailable [phone] Encounter Details Date Type Department Care Team [...] documented as of this encounter Care Teams Press Operator Heavy Duty Relationship Specialty Start Date End Date Kaykay Duarte RADIO INTERFERENCE TROUBLE SHOOTER [address] [place] [address] PCP - General 10/15/22 Roderick Morelos MD [address] [place] [address] Cardiovascular Disease 02/03/22 Magno Wood MD 420 [facility] 396 [place], [place] 788115 Otolaryngology 02/21/22 Sophie Ocasio, Nick 909 [place], [place] 173945 Clinical Quality Manager Audiology 02/21/22 Henny Rosales APRN FRAMING MILL OPERATOR [address] [place] [address] Assigned Heart and Vascular Provider 08/09/[address] 909 [place], [place] 978525 Registered Dietitian Dietitian, Registered 09/02/22 Christiane Rodríguez MD 420 [facility] 396 [place], [place] 154285 Otolaryngology 11/12/22 Chely Fernandez PA-C [address] [place] [address] 205575 Assigned Surgical Provider 11/29/22 02/06/23 Jing Cadena APRN ROLL COVERER 420 [facility] 450 [place], [place] 450665 Clinical Nurse Specialist Anesthesiology 01/15/23 JessicaRadha, [facility] [address] [place] [address] 086945 Pharmacist Pharmacist 01/16/23 Luis A Escobedo MD [address] [place] [address] 195 [place], [place] 277145 Assigned Surgical Provider 02/07/23 04/15/23 Geri Loza PA-C [address] [place] [address] 411385 Assigned Surgical Provider 04/16/23 Raina Patterson APRN FRAMING MILL OPERATOR [address] [place] 036965 Nurse Practitioner Cardiovascular Disease 05/11/23 documented as of this encounter
--- OUTSIDE RECORDS SUMMARY | 2024-01-11 23:39 | XMS_ITS | Encounter Summary ---
Author Organization [facility] Address [address] [place] [address] 60020 Care Team Providers Care Shrimp Peeling Machine Tender Name Role Phone Roderick Morelos MD Unavailable [phone] Mgano Wood MD Unavailable [phone] Sophie Ocasio AuD Unavailable Henny Rosales AUTOMOBILE ASSEMBLY SUPERVISOR EDUCATIONAL MANAGER Unavailable Sharee Oliva RD Unavailable [phone] Kaykay Duarte FINISHED STOCK INSPECTOR Primary Care Provider Christiane Rodríguez MD Unavailable Chely FernandezC Unavailable Jing Cadena AUTOMOBILE ASSEMBLY SUPERVISOR SUPERVISOR MOLD CONSTRUCTION Unavailable Radha Lopez [facility] Unavailable Luis A Escobedo MD Unavailable [phone] Geri LozaC Unavailable Raina Patterson AUTOMOBILE ASSEMBLY SUPERVISOR EDUCATIONAL MANAGER Unavailable [phone] Encounter Details Date Type Department Care Team (Late st Contact Info) Description 01/15/2023 [facility] [address] [place] [address] Geri Loza PA-C 909 [place], [place] 869145 Social History Tobacco Use Types Packs/Day Years [...] Lopez, PharmD, BCACP Medication Therapy Management Pharmacist [facility] * [...] documented as of this encounter Care Teams Shrimp Peeling Machine Tender Relationship Specialty [place] [address] [place] [address] PCP - General 10/15/22 Roderick Morelos MD [address] [place] [address] Cardiovascular Disease 02/03/22 Magno Wood MD [address] [place] [address] 091055 Otolaryngology 02/21/22 Sophie Ocasio AuD [address] [place] [address] 760195 Paper Winder Audiology 02/21/22 Henny Rosales APRN EDUCATIONAL MANAGER [address] [place] [address] Assigned Heart and Vascular Provider 08/09/[address] [place] [address] 925335 Registered Dietitian Dietitian, Registered 09/02/22 Christiane Rodríguez MD [address] [place] [address] 142165 Otolaryngology 11/12/22 Chely Fernandez PA-C [address] [place] [address] 6[address] Assigned Surgical Provider 11/29/22 02/06/23 Jing Cadena APRN SUPERVISOR MOLD CONSTRUCTION 420 [facility] 450 [place], [place] 686415 Clinical Nurse Specialist Anesthesiology 01/15/23 Radha Lopez, [facility] 9 [place] [address] Pharmacist Pharmacist 01/16/23 Luis A Escobedo MD 420 [facility] 195 [place], [place] 072845 Assigned Surgical Provider 02/07/23 04/15/23 Geri Loza PA-C [address] [place] [address] 09334 Assigned Surgical Provider 04/16/23 Raina Patterson APRN EDUCATIONAL MANAGER [address] [place] 463185 Nurse Practitioner Cardiovascular Disease 05/11/23 documented as of this encounter
--- OUTSIDE RECORDS SUMMARY | 2024-01-11 23:39 | XMS_ITS | Encounter Summary ---
Author Organization [place] Address [address] [place] [address] 82546 Care Team Providers Care Physical Therapy Resident Name Role Phone Roderick Morelos MD Unavailable [phone] Magno Wood MD Unavailable [phone] Sophie Ocasio AuD Unavailable Henny Rosales INTEGRITY SPECIALIST PLASTER MECHANIC Unavailable Sharee Oliva RD Unavailable [phone] Kaykay Duarte DIRECTOR OF INTELLIGENCE Primary Care Provider Christiane Rodríguez MD Unavailable [phone] Chely FernandezC Unavailable [phone] Jing Cadena INTEGRITY SPECIALIST NURSING INFORMATICS SPECIALIST Unavailable Radha Lopez [facility] Unavailable Luis A Escobedo MD Unavailable [phone] Geri LozaC Unavailable [phone] Raina Patterson INTEGRITY SPECIALIST PLASTER MECHANIC Unavailable [phone] Encounter Details Date Type Department Care Team (Late st Contact Info) Description 02/06/2023 [facility] [address] [place] [phone] Daniela [place] Social History Tobacco Use Types [...] as of this encounter Care Teams Physical Therapy Resident Relationship Specialty [place] [address] [address] [place] [address] PCP - General 10/15/22 Roderick Morelos MD [address] [place] [address] Cardiovascular Disease 02/03/22 Magno Wood MD [address] [place] [address] 434535 Otolaryngology 02/21/22 Sophie Ocasio AuD [address] [place] [address] 000275 Joint Cutter Machine Audiology 02/21/22 Henny Rosales APRN PLASTER MECHANIC [address] [place] [phone] Assigned Heart and Vascular Provider 08/09/[address] [place] [address] 688315 Registered Dietitian Dietitian, Registered 09/02/22 Christiane Rodríguez MD [address] [place] [address] 396 [place], [place] 584955 Otolaryngology 11/12/22 Chely Fernandez PA-C [address] [place] [address] 124515 Assigned Surgical Provider 11/29/22 02/06/23 Jing Cadena APRN NURSING INFORMATICS SPECIALIST [address] [place] [address] 450 [place], [place] 940085 Clinical Nurse Specialist Anesthesiology 01/15/23 Radha Lopez, [facility] [address] [place] [address] 225145 Pharmacist Pharmacist 01/16/23 Luis A Escobedo MD [address] [place] [address] 195 [place], [place] 152505 Assigned Surgical Provider 02/07/23 04/15/23 Geri Loza PA-C [address] [place] [address] [id number] Assigned Surgical Provider 04/16/23 Raina Patterson APRN PLASTER MECHANIC [address] [facility] [address] [place], [place] 913695 Nurse Practitioner Cardiovascular Disease 05/11/23 documented as of this encounter
--- OUTSIDE RECORDS SUMMARY | 2024-01-11 23:39 | XMS_ITS | Encounter Summary ---
Author Organization [place] Address [address] [place] [address] 87862 Care Team Providers Care Key Person Name Role Phone Roderick Morelos MD Unavailable [phone] Magno Wood MD Unavailable [phone] Sophie Ocasio AuD Unavailable Henny Rosales PATTERN DATA OPERATOR POULTRY AND FISH BUTCHER Unavailable Sharee Oliva RD Unavailable [phone] Kaykay Duarte CHILDREN'S SERVICE WORKER Primary Care Provider Christiane Rodríguez MD Unavailable Chely FernandezC Unavailable [phone] Jing Cadena PATTERN DATA OPERATOR HOST/HOSTESS RESTAURANT Unavailable [phone] Radha Lopez [facility] Unavailable Luis A Escobedo MD Unavailable [phone] Geri LozaC Unavailable [phone] Raina Patterson PATTERN DATA OPERATOR POULTRY AND FISH BUTCHER Unavailable [phone] Encounter Details Date Type Department Care Team (Late st Contact Info) Description 01/21/2023 [facility] [place] [facility] [address] [place] [address] Radha Domniguez, RN 420 [facility] 195 [place] [address] Social History Tobacco Use Types [...] documented as of this encounter Care Teams Key Person Relationship Specialty [place] [address] [place] [address] PCP - General 10/15/22 Roderick Morelos MD [address] [place] [address] Cardiovascular Disease 02/03/22 Magno Wood MD 420 [facility] 396 [place], [place] 995285 Otolaryngology 02/21/22 Sophie Ocasio AuD 909 [place], [place] 576935 Slipcover Cutter Audiology 02/21/22 Henny Rosales, PATTERN DATA OPERATOR POULTRY AND FISH BUTCHER [address] [place] [address] Assigned Heart and Vascular Provider 08/09/[address] [place] [address] 112145 Registered Dietitian Dietitian, Registered 09/02/22 Christiane Rodríguez MD [address] [place] [address] 396 [place], [place] 042895 Otolaryngology 11/12/22 Chely Fernandez PA-C [address] [place] [address] 007035 Assigned Surgical Provider 11/29/22 02/06/23 Jing Cadena APRN HOST/HOSTESS RESTAURANT [address] [place] [address] 450 [place] [address] Clinical Nurse Specialist Anesthesiology 01/15/23 Radha Lopez, [facility] [address] [place] [address] 005085 Pharmacist Pharmacist 01/16/23 Luis A Escobedo MD [address] [place] [address] 195 [place], [place] 761285 Assigned Surgical Provider 02/07/23 04/15/23 Geri Loza PA-C [address] [place] [address] 655905 Assigned Surgical Provider 04/16/23 Raina Patterson APRN [facility] [address] [facility] [address] [place] [address] Nurse Practitioner Cardiovascular Disease 05/11/23 documented as of this encounter
--- OUTSIDE RECORDS SUMMARY | 2024-01-11 23:39 | XMS_ITS | Encounter Summary ---
Author Organization [place] Address [address] [place] [address] 7[address]42 Care Team Providers Care Dye House Helper Name Role Phone Roderick Morelos MD Unavailable [phone] Magno Wood MD Unavailable [phone] Sophie Ocasio AuD Unavailable Henny Rosales CASHIER SELF SERVICE GASOLINE MAINTENANCE MECHANIC TELEPHONE Unavailable Sharee Oliva RD Unavailable [phone] Kaykay Duarte BMW SERVICE TECHNICIAN Primary Care Provider Christiane Rodríguez MD Unavailable Chely FernandezC Unavailable [phone] Jing Cadena CASHIER SELF SERVICE GASOLINE GREASE REFINING SUPERVISOR Unavailable Radha Lopez [facility] Unavailable Luis A Escobedo MD Unavailable [phone] Geri LozaC Unavailable [phone] Raina Patterson CASHIER SELF SERVICE GASOLINE MAINTENANCE MECHANIC TELEPHONE Unavailable [phone] Encounter Details Date Type Department Care Team (Late st Contact Info) Description 01/26/2023 [facility] [place] [facility] [address] [place] [phone] Henny Arguello RN Social History Tobacco Use [...] as of this encounter Care Teams Dye House Helper Relationship Specialty Start Date End Date Kaykay Duarte, BMW SERVICE TECHNICIAN [address] [place] [address] PCP - General 10/15/22 Roderick Morelos MD [address] [place] [address] Cardiovascular Disease 02/03/22 Magno Wood MD [address] [place] [address] 648355 Otolaryngology 02/21/22 Sophie Ocasio, Nick [address] [place] [address] 212675 Process Inspector Audiology 02/21/22 Henny Rosales, CASHIER SELF SERVICE GASOLINE MAINTENANCE MECHANIC TELEPHONE [address] [place] [address] Assigned Heart and Vascular Provider 08/09/[address] [place] [address] 248775 Registered Dietitian Dietitian, Registered 09/02/22 Christiane Rodríguez MD [address] [place] [address] 396 [place], [place] 949795 Otolaryngology 11/12/22 Chely Fernandez PA-C [address] [place] [address] 449045 Assigned Surgical Provider 11/29/22 02/06/23 Jing Cadena APRN GREASE REFINING SUPERVISOR [address] [place] [address] 450 [place], [place] 049545 Clinical Nurse Specialist Anesthesiology 01/15/23 Radha Lopez, [facility] [address] [place] [address] 606705 Pharmacist Pharmacist 01/16/23 Luis A Escobedo MD [address] [place] [address] 195 [place], [place] 532405 Assigned Surgical Provider 02/07/23 04/15/23 Geri Loza PA-C [address] [place] [address] 192925 Assigned Surgical Provider 04/16/23 Raina Patterson APRN MAINTENANCE MECHANIC TELEPHONE [address] [facility] [address] [place], [place] 519095 Nurse Practitioner Cardiovascular Disease 05/11/23 documented as of this encounter
--- OUTSIDE RECORDS SUMMARY | 2024-01-11 23:39 | XMS_ITS | Encounter Summary ---
Author Organization [place] Address [address] [place] [address] 82360 Care Team Providers Care Head Athletic Trainer Name Role Phone Roderick Morelos MD Unavailable [phone] Magno Wood MD Unavailable [phone] Sophie Ocasio AuD Unavailable [phone] Henny Rosales ENVIRONMENTAL HEALTH SAFETY MANAGER STONE GANG SAWYER Unavailable Sharee Oliva RD Unavailable [phone] Kaykay Duarte FLAT FINISHER Primary Care Provider Christiane Rodríguez MD Unavailable [phone] Chely FernandezC Unavailable [phone] Jing Cadena ENVIRONMENTAL HEALTH SAFETY MANAGER DIRECTOR CLINICAL RESEARCH Unavailable Radha Lopez [facility] Unavailable Luis A Escobedo MD Unavailable [phone] Geri LozaC Unavailable [phone] Raina Patterson ENVIRONMENTAL HEALTH SAFETY MANAGER STONE GANG SAWYER Unavailable [phone] Reason for Visit * Reason Onset Date Comments Call Back 01/15/2023 See note. Encounter Details Date Type Department Care Team (Late st Contact Info) Description 01/15/2023 [facility] Surgery [place] [address] [facility] 4th [place] [address] Luis A Escobedo MD 420 [facility] 195 [place], [place] 622425 Call Back (See note./) Social History Tobacco [...] or updates. Please contact Daisy Huynh, clinical field specialist, if clinic appt slots are not available. Henny, The patient has been informed that you will contact them about the preop class. Thank you! Summer, RN Radha Dominguez, MS, property appraiser Weight Management Nurse Coordinator MyChart messages to Surgery Clinic Wls Nurses - Contact Center Nurse Line and Clinic [phone] documented in this encounter Plan of Treatment [...] as of this encounter Care Teams Head Athletic Trainer Relationship Specialty Start Date End Date Kaykay Duarte, FLAT FINISHER [address] [address] [place] 230037 PCP - General 10/15/22 Roderick Morelos MD [address] [place] 169745 Cardiovascular Disease 02/03/22 Magno Wood MD [address] [place] [address] 511435 Otolaryngology 02/21/22 Sophie Ocasio AuD [address] [place] [address] 116775 Head Rigger Audiology 02/21/22 Henny Rosales, ENVIRONMENTAL HEALTH SAFETY MANAGER STONE GANG SAWYER [address] [place] [address] Assigned Heart and Vascular Provider 08/09/[address] [place] [address] 914725 Registered Dietitian Dietitian, Registered 09/02/22 Christiane Rodríguez MD 420 [facility] 396 [place], [place] 928725 Otolaryngology 11/12/22 Chely Fernandez PA-C 909 [place], [place] 812545 Assigned Surgical Provider 11/29/22 02/06/23 Jing Cadena, ENVIRONMENTAL HEALTH SAFETY MANAGER DIRECTOR CLINICAL RESEARCH 420 [facility] 450 [place], [place] 747425 Clinical Nurse Specialist Anesthesiology 01/15/23 Radha Lopez, [facility] 909 [place], [place] 040635 Pharmacist Pharmacist 01/16/23 Lusi A Escobedo MD 420 [facility] 195 [place], [place] 840195 Assigned Surgical Provider 02/07/23 04/15/23 Geri Loza PA-C 909 [place], [place] 676785 Assigned Surgical Provider 04/16/23 Raina Patterson, GINA STONE GANG SAWYER [address] [address] [place] 176375 Nurse Practitioner Cardiovascular Disease 05/11/23 documented as of this encounter
--- OUTSIDE RECORDS SUMMARY | 2024-01-11 23:39 | XMS_ITS | Encounter Summary ---
Author Organization [place] Address [address] [place] [address] 12479 Care Team Providers Care Marine Steamfitter Name Role Phone Roderick Morelos MD Unavailable [phone] Magno Wood MD Unavailable [phone] Sophie Ocasio Unavailable [phone] Henny Rosales HUMAN RESOURCES TRAINING MANAGER COOK HELPER Unavailable [phone] Unavailable [phone] Kaykay Duarte TERRITORY MANAGER GENERAL SALES Primary Care Provider [phone] Christiane Rodríguez MD Unavailable Luis A Escobedo MD Unavailable [phone] Chely Fernandez-C Unavailable [phone] Jing Cadena APRN BUILDING CONSTRUCTION ENGINEER Unavailable Radha Lopez [facility] Unavailable [phone] Luis A Escobedo MD Unavailable [phone] Geri LozaC Unavailable [phone] Raina Patterson APRN COOK HELPER Unavailable [phone] Encounter Details Date Type Department Care Team (Late st Contact Info) Description 11/03/2022 [facility] [place] [address] [facility] 4th [place] [address] Kagn Griffiths Social History Tobacco Use Types Packs/Day [...] as of this encounter Care Teams Marine Steamfitter Relationship Specialty [place] [address] [place] [address] PCP - General 10/15/22 Roderick Morelos MD [address] [place] [address] Cardiovascular Disease 02/03/22 Magno Wood MD [address] [place] [address] 396 [place], [place] 133265 Otolaryngology 02/21/22 Sohpie Ocasio, AuD [address] [place] [address] 423165 Manager Willow Audiology 02/21/22 Henny Rosales APRN COOK HELPER [address] [place] [address] Assigned Heart and Vascular Provider 08/09/[address] [place] [address] 192565 Registered Dietitian Dietitian, Registered 09/02/22 Christiane Rodríguez MD [address] [place] [address] 396 [place], [place] 553835 Otolaryngology 11/12/22 Luis A Escobedo MD [address] [place] [address] 156015 Assigned Surgical Provider 11/01/22 11/28/22 Chely Fernandez PA-C [address] [place] [address] 207955 Assigned Surgical Provider 11/29/22 02/06/23 Jing Cadena APRN BUILDING CONSTRUCTION ENGINEER [address] [place] [address] 450 [place], [place] 877095 Clinical Nurse Specialist Anesthesiology 01/15/23 Radha Lopez [facility] [address] [place] [address] 924555 Pharmacist Pharmacist 01/16/23 Luis A Escobedo MD [address] [place] [address] 195 [place], [place] 240345 Assigned Surgical Provider 02/07/23 04/15/23 Geri Loza PA-C 9 [place], [place] 288585 Assigned Surgical Provider 04/16/23 Raina Patterson APRN CNP [address] [place] [address] Nurse Practitioner Cardiovascular Disease 05/11/23 documented as of this encounter
--- OUTSIDE RECORDS SUMMARY | 2024-01-11 23:39 | XMS_ITS | Encounter Summary ---
Author Organization [place] Address [address] [place] [address] 64786 Care Team Providers Care Applications Support Specialist Name Role Phone Roderick Morelos MD Unavailable [phone] Magno Wood MD Unavailable [phone] Sophie Ocasio AuD Unavailable Henny Rosales DIGITAL MEDIA MANAGER DIPPING MACHINE OPERATOR Unavailable Sharee Oliva RD Unavailable [phone] Kaykya Duarte TABLE GAMES FLOOR SUPERVISOR Primary Care Provider Christiane Rodríguez MD Unavailable Chely FernandezC Unavailable [phone] Jing Cadena DIGITAL MEDIA MANAGER LOCK MASTER Unavailable Radha Lopez [facility] Unavailable Luis A Escobedo MD Unavailable [phone] Geri LozaC Unavailable [phone] Raina Patterson DIGITAL MEDIA MANAGER DIPPING MACHINE OPERATOR Unavailable [phone] Encounter Details Date Type Department Care Team (Late st Contact Info) Description 01/14/2023 [facility] [address] [place] [address] Radha Dominguez, RN 420 [facility] 195 [place] [address] Social History Tobacco Use Types [...] documented as of this encounter Care Teams Applications Support Specialist Relationship Specialty [place] [address] [place] [address] PCP - General 10/15/22 Roderick Morelos MD [address] [place] [address] Cardiovascular Disease 02/03/22 Magno Wood MD 420 [facility] 396 [place], [place] 934965 Otolaryngology 02/21/22 Sophie Ocasio AuD 909 [place], [place] 949875 Product Support Manager Audiology 02/21/22 Henny Rosales, DIGITAL MEDIA MANAGER DIPPING MACHINE OPERATOR [address] [place] [address] Assigned Heart and Vascular Provider 08/09/[address] [place] [address] 135185 Registered Dietitian Dietitian, Registered 09/02/22 Christiane Rodríguez MD [address] [place] [address] 396 [place], [place] 224185 Otolaryngology 11/12/22 Chely Fernandez PA-C [address] [place] [address] 478955 Assigned Surgical Provider 11/29/22 02/06/23 Jing Cadena APRN LOCK MASTER [address] [place] [address] 450 [place] [address] Clinical Nurse Specialist Anesthesiology 01/15/23 Radha Lopez, [facility] [address] [place] [address] 590385 Pharmacist Pharmacist 01/16/23 Luis A Escobedo MD [address] [place] [address] 195 [place], [place] 233885 Assigned Surgical Provider 02/07/23 04/15/23 Geri Loza PA-C [address] [place] [address] 676545 Assigned Surgical Provider 04/16/23 Raina Patterson APRN [facility] [address] [facility] [address] [place] [address] Nurse Practitioner Cardiovascular Disease 05/11/23 documented as of this encounter
--- OUTSIDE RECORDS SUMMARY | 2024-01-11 23:39 | XMS_ITS | Encounter Summary ---
Author Organization [facility] Address [address] [place] [address] 93423 Care Team Providers Care Car Icer Name Role Phone Roderick Morelos MD Unavailable [phone] Magno Wood MD Unavailable [phone] Sophie Ocasio AuD Unavailable Henny Rosales MATERIAL HANDLING SUPERVISOR BEAN SORTER Unavailable Sharee Oliva [address] Unavailable [phone] Kaykay Duarte MARKETING INFORMATION COORDINATOR Primary Care Provider Christiane Rodríguez MD Unavailable Chely FernandezC Unavailable [phone] Jing Cadena MATERIAL HANDLING SUPERVISOR PILOT Unavailable Radha Lopez [facility] Unavailable [phone] Luis A Escobedo MD Unavailable [phone] Geri LozaC Unavailable [phone] Raina Patterson MATERIAL HANDLING SUPERVISOR BEAN SORTER Unavailable [phone] Encounter Details Date Type Department Care Team (Late st Contact Info) Description 01/07/2023 [facility] [address]th [place] [address] Daniela [place]sview Social History Tobacco Use Types [...] documented as of this encounter Care Teams Car Icer Relationship Specialty [place] [address] [place] [address] PCP - General 10/15/22 Roderick Morelos MD [address] [place] [address] Cardiovascular Disease 02/03/22 Magno Wood MD [address] [place] [address] 788485 Otolaryngology 02/21/22 Sophie Ocasio AuD [address] [place] [address] 864455 Textile Supervisor Audiology 02/21/22 Henny Rosales APRN BEAN SORTER [address] [place] [address] Assigned Heart and Vascular Provider 08/09/[address] [place] [address] 933835 Registered Dietitian Dietitian, Registered 09/02/22 Christiane Rodríguez MD [address] [place] [address] 396 [place], [place] 384645 Otolaryngology 11/12/22 Chely Fernandez PA-C [address] [place] [address] 799575 Assigned Surgical Provider 11/29/22 02/06/23 Jing Cadena APRN PILOT [address] [place] [address] 450 [place], [place] 702385 Clinical Nurse Specialist Anesthesiology 01/15/23 Radha Lopez, [facility] [address] [place] [address] 536055 Pharmacist Pharmacist 01/16/23 Luis A Escobedo MD [address] [place] [address] 195 [place], [place] 821815 Assigned Surgical Provider 02/07/23 04/15/23 Geri Loza PA-C [address] [place] [address] 227895 Assigned Surgical Provider 04/16/23 Raina Patterson APRN BEAN SORTER [address] [facility] [address] [place], [place] 829595 Nurse Practitioner Cardiovascular Disease 05/11/23 documented as of this encounter
--- OUTSIDE RECORDS SUMMARY | 2024-01-11 23:39 | XMS_ITS | Encounter Summary ---
Author Organization [place] Address [address] [place] [address] 22596 Care Team Providers Care Vp Corporate Development Name Role Phone Roderick Morelos MD Unavailable [phone] Magno Wood MD Unavailable [phone] Sophie Ocasio AuD Unavailable [phone] Henny Rosales BLADE BONER INPATIENT NURSING AIDE Unavailable Sharee Oliva [address] Unavailable [phone] Kaykay Duarte EXHIBITION SPECIALIST Primary Care Provider Christiane Rodríguez MD Unavailable [phone] Chely FernandezC Unavailable [phone] Jing Cadena BLADE BONER TRANSMISSION SUPERVISOR Unavailable Radha Lopez [facility] Unavailable Luis A Escobedo MD Unavailable [phone] Geri LozaC Unavailable Raina Patterson BLADE BONER INPATIENT NURSING AIDE Unavailable [phone] Encounter Details Date Type Department Care Team [...] as of this encounter Care Teams Vp Corporate Development Relationship Specialty Start Date End Date Kaykay Duarte EXHIBITION SPECIALIST [address] [place] [address] PCP - General 10/15/22 Roderick Morelos MD [address] [place] [address] Cardiovascular Disease 02/03/22 Magno Wood MD 420 [facility] 396 [place], [place] 855165 Otolaryngology 02/21/22 Sophie Ocasio, Nick 909 [place], [place] 904075 Ornamental Metal Erector Apprentice Audiology 02/21/22 Henny Rosales APRN INPATIENT NURSING AIDE [address] [place] [phone] Assigned Heart and Vascular Provider 08/09/[address]09 [place], [place] 487715 Registered Dietitian Dietitian, Registered 09/02/22 Christiane Rodríguez MD 420 [facility] 396 [place], [place] 321215 Otolaryngology 11/12/22 Chely Fernandez PA-C [address] [place] [address] 050515 Assigned Surgical Provider 11/29/22 02/06/23 Jing Cadena APRN TRANSMISSION SUPERVISOR 420 [facility] 450 [place], [place] 951815 Clinical Nurse Specialist Anesthesiology 01/15/23 JessicaRadha, [facility] [address] [place] [address] 147995 Pharmacist Pharmacist 01/16/23 Luis A Escobedo MD [address] [place] [address] 195 [place], [place] 997515 Assigned Surgical Provider 02/07/23 04/15/23 Geri Loza PA-C [address] [place] [address] 999445 Assigned Surgical Provider 04/16/23 Raina Patterson APRN INPATIENT NURSING AIDE [address] [place] 963295 Nurse Practitioner Cardiovascular Disease 05/11/23 documented as of this encounter
--- OUTSIDE RECORDS SUMMARY | 2024-01-11 23:39 | XMS_ITS | Encounter Summary ---
Author Organization [facility] Address [address] [place] [address] 93023 Care Team Providers Care Geological Aide Name Role Phone Roderick Morelos MD Unavailable [phone] Magno Wood MD Unavailable [phone] Sophie Ocasio Unavailable [phone] Henny Rosales PLASTIC WELDING MACHINE OPERATOR PROBATE JUDGE Unavailable [phone] Unavailable [phone] Kaykay Duarte STRINGED INSTRUMENT TUNER Primary Care Provider [phone] Christiane Rodríguez MD Unavailable [phone] Luis A Escobedo MD Unavailable [phone] Chely Fernandez-C Unavailable [phone] Jing Cadena APRN IMPACT HAMMER OPERATOR Unavailable [phone] Radha Lopez [facility] Unavailable [phone] Luis A Escobedo MD Unavailable [phone] Geri LozaC Unavailable [phone] Raina Patterson APRN PROBATE JUDGE Unavailable [phone] Encounter Details Date Type Department Care Team (Late st Contact Info) Description 10/17/2022 [facility] Medical Advice [facility] [address] 4th [place] [address] Henny Arguello RN Social History [...] documented as of this encounter Care Teams Geological Aide Relationship Specialty [place] [address] [place] [address] PCP - General 10/15/22 Roderick Morelos MD [address] [place] [address] Cardiovascular Disease 02/03/22 Magno Wood MD [address] [place] [address] 112625 Otolaryngology 02/21/22 Sophie Ocasio, Nick [address] [place] [address] 274405 President Ceo & Founder Audiology 02/21/22 Henny Rosales APRN PROBATE JUDGE [address] [place] [address] Assigned Heart and Vascular Provider 08/09/[address] [place] [address] 832935 Registered Dietitian Dietitian, Registered 09/02/22 Christiane Rodríguez MD [address] [place] [address] 396 [place], [place] 324465 Otolaryngology 11/12/22 Luis A Escobedo MD [address] [place] [address] 361665 Assigned Surgical Provider 11/01/22 11/28/22 Chely Fernandez PA-C [address] [place] [address] 975655 Assigned Surgical Provider 11/29/22 02/06/23 Jing Cadena PLASTIC WELDING MACHINE OPERATOR IMPACT HAMMER OPERATOR [address] [place] [address] 450 [place], [place] 827825 Clinical Nurse Specialist Anesthesiology 01/15/23 Radha Lopez, [facility] [address] [place] [address] 815555 Pharmacist Pharmacist 01/16/23 Luis A Escobedo MD [address] [place] [address] 195 [place], [place] 073155 Assigned Surgical Provider 02/07/23 04/15/23 Geri Loza PA-C 9 [place] [address] Assigned Surgical Provider 04/16/23 Raina Patterson APRN PROBATE JUDGE [address] [facility] [address] [place] [address] Nurse Practitioner Cardiovascular Disease 05/11/23 documented as of this encounter
--- OUTSIDE RECORDS SUMMARY | 2024-01-11 23:40 | XMS_ITS | Encounter Summary ---
Author Organization [facility] Address [address] [place] [address] 90802 Care Team Providers Care Mail Messenger Contractor Name Role Phone [facility] Provider Unavailable Khris Butt MD Unavailable [phone] MorelosRoderick nunes MD Unavailable [phone] Roderick Morelos MD Unavailable [phone] Magno Wood MD Unavailable [phone] Sophie Ocasio Unavailable [phone] Parth Ellis MD Unavailable MorelosRoderick nunes MD Unavailable [phone] Henny Rosales APRN LAND TITLE EXAMINER Unavailable +[phone] [facility] Elvia Nugent [place] Primary Care Pr ovider Sharee Oliva RD Unavailable [phone] Kaykay Duarte CHIEF FUNDRAISING OFFICER Primary Care Provider [phone] Christiane Rodríguez MD Unavailable +[phone] Luis A Escobedo MD Unavailable [phone] Chely FernandezC Unavailable +[phone] Jing Cadena APRN BALANCE RECESSER Unavailable [phone] [facility] Unavailable Luis A Escobedo MD Unavailable [phone] Geri LozaC Unavailable [phone] Raina Patterson APRN LAND TITLE EXAMINER Unavailable Encounter Details Date Type Department Care Team (Late st Contact Info) Description 02/11/2022 MyC Medical Advice [facility] [address] [facility] [address] [place] [address] Rowena Stockton [...] Coronavirus/COVID-19? No / Unsure 02/10/2022 4:12 PM THRESHING MACHINE OPERATOR documented as of this encounter Plan of Treatment Not on file documented as of this encounter Visit Diagnoses Not on filedocumented in this encounter Care Teams Mail Messenger Contractor Relationship Specialty Start Date End Date Ernestina Martini PCP - General Family Practice 10/12/19 08/18/22 [facility] [place], [place] [address] [place], [place] 883557 PCP - General 08/19/22 10/14/22 Kaykay Duarte CHIEF FUNDRAISING OFFICER [address] [place] 4[address]47 PCP - General 10/15/22 Khris Butt MD [address] [facility] [address] [place] 427355 Assigned Heart and Vascular Provider 12/14/21 02/14/22 Roderick Morelos MD [address] [place] [address] Cardiovascular Disease 02/03/22 Roderick Morelos MD [address] [place] [address] Assigned Heart and Vascular Provider 02/15/22 07/18/22 Magno Wood MD [address] [place] [address] 222105 Otolaryngology 02/21/22 Sophie Ocasio AuD 909 [place], [place] 388455 Desktop Technician Audiology 02/21/22 Parth Ellis MD [address] [place] 950225 Assigned Heart and Vascular Provider 07/19/22 07/25/22 Roderick Morelos MD [address] [place] [address] Assigned Heart and Vascular Provider 07/26/22 08/08/22 Henny Rosales APRN LAND TITLE EXAMINER [address] [place] [address] Assigned Heart and Vascular Provider 08/09/[address] [place], [place] 792265 Registered Dietitian Dietitian, Registered 09/02/22 Christiane Rodríguez MD 420 [facility] 396 [place], [place] 280375 Otolaryngology 11/12/22 Luis A Escobedo MD 420 [facility] 195 [place], [place] 571435 Assigned Surgical Provider 11/01/22 11/28/22 Cehly Fernandez PA-C [address] [place] [address] 699785 Assigned Surgical Provider 11/29/22 02/06/23 Jing Cadena APRN BALANCE RECESSER [address] [place] [address] 450 [place], [place] 103295 Clinical Nurse Specialist Anesthesiology 01/15/23 Radha Lopez, [facility] [address] [place] [address] 692585 Pharmacist Pharmacist 01/16/23 Luis A Escobedo MD [address] [place] [address] Assigned Surgical Provider 02/07/23 04/15/23 Geri Loza PA-C [address] [place] [address] 358135 Assigned Surgical Provider 04/16/23 Raina Patterson APRN LAND TITLE EXAMINER [address] [facility] [address] [place] 236185 Nurse Practitioner Cardiovascular Disease 2/19/24 documented as of this encounter
--- OUTSIDE RECORDS SUMMARY | 2024-01-11 23:40 | XMS_ITS | Encounter Summary ---
Author Organization [facility] Address [address] [place] [address] Care Team Providers Care Automatic Machines Supervisor Name Role Phone Roderick Morelos MD Unavailable Magno Wood MD Unavailable [phone] Sophie Ocasio Unavailable [phone] Henny Rosales SILK OPENER TILE SORTER Unavailable [phone] [facility] Primary Care Pr ovider Sharee Oliva RD Unavailable [phone] Kaykay Duarte ORNAMENTAL METAL ERECTOR Primary Care Provider [phone] Christiane Rodríguez MD Unavailable [phone] Luis A Escobedo MD Unavailable +[phone] Chely Fernandez PA-C Unavailable [phone] Jing Cadena SILK OPENER CRATER AND PACKER Unavailable [phone] Radha Lopez [facility] Unavailable [phone] Luis A Escobedo MD Unavailable [phone] Geri Loza PAEddaC Unavailable [phone] Raina Patterson SILK OPENER TILE SORTER Unavailable [phone] Encounter Details Date Type Department Care Team (Late st Contact Info) Description 10/03/2022 MyC Medical Advice [facility] [address] 4th [place] [phone] Geri Loza PA-C [address] [place] [address] Social History Tobacco Use Types Packs/Day Years [...] on filedocumented in this encounter Care Teams Automatic Machines Supervisor Relationship Specialty Start Date End Date Clinic, [place] [address] [place] [address] PCP - General 08/19/22 10/14/22 Kaykay Duarte ORNAMENTAL METAL ERECTOR [address] [place] [address] [place] [address] PCP - General 10/15/22 Roderick Morelos MD [address] [place] [address] Cardiovascular Disease 02/03/22 Magno Wood MD [address] [place] [address] 545815 Otolaryngology 02/21/22 Sophie Ocasio, AuD [address] [place] [address] 998575 Environmental Sustainability Manager Audiology 02/21/22 Henny Rosales APRN TILE SORTER [address] [place] [address] Assigned Heart and Vascular Provider 08/09/[address] [place] [address] Registered Dietitian Dietitian, Registered 09/02/22 Christiane Rodríguez MD [address] [place] [address] 396 [place], [place] 549325 Otolaryngology 11/12/22 Luis A Escobedo MD [address] [place] [address] 195 [place], [place] 861545 Assigned Surgical Provider 11/01/22 11/28/22 Chely Fernandez PA-C [address] [place] [address] 158135 Assigned Surgical Provider 11/29/22 02/06/23 Jing Cadena SILK OPENER CRATER AND PACKER 420 [facility] 450 [place], [place] 501565 Clinical Nurse Specialist Anesthesiology 01/15/23 Radha Lopez [facility] [address] [place] [address] 609355 Pharmacist Pharmacist 01/16/23 Luis A Escobedo MD [address] [place] [address] 195 [place], [place] 293455 Assigned Surgical Provider 02/07/23 04/15/23 Geri Loza PA-C 9 [place], [place] 791065 Assigned Surgical Provider 04/16/23 Raina Patterson APRN CNP [address] [place] [address] [place] [address] Nurse Practitioner Cardiovascular Disease 05/11/23 documented as of this encounter
--- OUTSIDE RECORDS SUMMARY | 2024-01-11 23:40 | XMS_ITS | Encounter Summary ---
Author Organization [facility] Address [address] [place] [address] Care Team Providers Care Centerless Grinding Machine Adjuster Name Role Phone [facility] Primary Care Provider Unavailable Roderick Morelos MD Unavailable [phone] Roderick Morelos MD Unavailable [phone] Magno Wood MD Unavailable [phone] Sophie Ocasio AuD Unavailable [phone] Parth Ellis MD Unavailable [phone] Roderick Morelos MD Unavailable [phone] Henny Rosales APRN TRACK WATCHMAN Unavailable [phone] [facility] [place] [facility] Primary Care Pr ovider Sharee Oliva RD Unavailable [phone] Kaykay Duarte HISTORICAL RECORDS ADMINISTRATOR Primary Care Provider Christiane Rodríguez MD Unavailable [phone] Luis A Escobedo MD Unavailable [phone] Chely Fernandez PA-C Unavailable +[phone] Jing Cadena IDENTIFIER HORSE MARKETING RESEARCH COORDINATOR Unavailable + [phone] Radha Lopez [facility] Unavailable Luis A Escobedo MD Unavailable [phone] Geri Loza PA-C Unavailable Raina Patterson APRN TRACK WATCHMAN Unavailable [phone] Encounter Details Date Type Department Care Team (Late st Contact Info) Description 05/26/2022 MyC Medical Advice [facility] [address] 4th [place] [address] Jessi Mantilla LPN Social History [...] on filedocumented in this encounter Care Teams Centerless Grinding Machine Adjuster Relationship Specialty Start Date End Date Ernestina Martini PCP - General Family Practice 10/12/19 08/18/22 [facility], [place] [address] [place] [address] PCP - General 08/19/22 10/14/22 [place] [address] [place] [address] PCP - General 10/15/22 Roderick Morelos MD [address] [place] 306935 Cardiovascular Disease 02/03/22 Roderick Morelos MD [address] [place] [address] Assigned Heart and Vascular Provider 02/15/22 07/18/22 Magno Wood MD 420 [facility] 396 [place], [place] 612575 Otolaryngology 02/21/22 Sophie Ocasio AuD 909 [place], [place] 539155 Rail Assembler Audiology 02/21/22 Parth Ellis MD [address] [place], [place] 847595 Assigned Heart and Vascular Provider 07/19/22 07/25/22 Roderick Morelos MD [address] [place] 140795 Assigned Heart and Vascular Provider 07/26/22 08/08/22 Henny Rosales APRN TRACK WATCHMAN [address] [place] [address] Assigned Heart and Vascular Provider 08/09/22 Sharee Oliva, ÁNGEL [address] [place] [address] Registered Dietitian Dietitian, Registered 09/02/22 Christiane Rodríguez MD 420 [facility] 396 [place], [place] 492845 Otolaryngology 11/12/22 Luis A Escobedo MD [address] [place] [address] 425085 Assigned Surgical Provider 11/01/22 11/28/22 Chely Fernandez PA-C 909 [place], [place] 219015 Assigned Surgical Provider 11/29/22 02/06/23 Jing Cadena APRN MARKETING RESEARCH COORDINATOR 420 [facility] 450 [place] [address] Clinical Nurse Specialist Anesthesiology 01/15/23 Radha Lopez, [facility] [address] [place] [address] 579675 Pharmacist Pharmacist 01/16/23 Luis A Escobedo MD 420 [facility] 195 [place], [place] 545765 Assigned Surgical Provider 02/07/23 04/15/23 Geri Loza PA-C [address] [place] [address] 522975 Assigned Surgical Provider 04/16/23 Raina Patterson, GINA TRACK WATCHMAN [address] [place] [address] [place] 012535 Nurse Practitioner Cardiovascular Disease 05/11/23 documented as of this encounter
--- OUTSIDE RECORDS SUMMARY | 2024-01-11 23:40 | XMS_ITS | Encounter Summary ---
Author Organization [facility] Address [address] [place] [address]18 Care Team Providers Care Conductor And Engineer Name Role Phone Elvia Nugent [place] Primary Care Provider Unavailable Parth Ellis MD Unavailable [phone] Tati Ayala MD Unavailable [phone] Khris Butt MD Unavailable [phone] MorelosRoderick nunes MD Unavailable [phone] Roderick Moerlos MD Unavailable [phone] Magno Wood MD Unavailable [phone] Sophie Ocasio Unavailable [phone] Parth Ellis MD Unavailable [phone] Roderick Morelos MD Unavailable [phone] Henny Rosales APRN SHIP SELF DEFENSE SYSTEM MK1 OPERATOR Unavailable [phone] [facility] [place] Jovanna [place] Primary Care Pr ovider Sharee Oliva RD Unavailable Kaykay Duarte RETAIL ADVISOR Primary Care Provider [phone] Christiane Rodríguez MD Unavailable +[phone] Luis A Escobedo MD Unavailable +[phone] Chely Fernandez PA-C Unavailable [phone] Cadena, Jing Susie CASH ANALYST CORRECTIONAL OFFICER CHIEF Unavailable [phone] Jessica Radha Estuardo [facility] Unavailable Luis A Escobedo MD Unavailable [phone] MariselGeri nunesMary Jo PA-C Unavailable Raina Patterson CASH ANALYST SHIP SELF DEFENSE SYSTEM MK1 OPERATOR Unavailable [phone] Encounter Details Date Type Department Care Team [...] documented as of this encounter Care Teams Conductor And Engineer Relationship Specialty Start Date End Date Ernestina Martini PCP - General Family Practice 10/12/19 08/18/22 [facility] [address] [place], [place] 738587 PCP - General 08/19/22 10/14/22 [place] [address] [place] [address] PCP - General 10/15/22 Parth Ellis MD [address] 436375 Assigned Heart and Vascular Provider 01/13/20 12/13/21 Tati Ayala MD [address] [place] [address] [place], [place] 620530 Assigned Endocrinology Provider 01/13/20 12/29/20 Khris Butt MD [address] [facility] [address] [place] [address] Assigned Heart and Vascular Provider 12/14/21 02/14/22 Roderick Morelos MD [address] [place] [address] Cardiovascular Disease 02/03/22 Roderick Morelos MD [address] [place] [address] Assigned Heart and Vascular Provider 02/15/22 07/18/22 Magno Wood MD [address] [place] [address] 009105 Otolaryngology 02/21/22 Sophie Ocasio AuD [address] [place] [address] 111705 Property Field Adjuster Audiology 02/21/22 Parth Ellis MD [address] [place] 834665 Assigned Heart and Vascular Provider 07/19/22 07/25/22 Roderick Morelos MD [address] [place] [address] Assigned Heart and Vascular Provider 07/26/22 08/08/22 Henny Rosales APRN SHIP SELF DEFENSE SYSTEM MK1 OPERATOR [address] [place] [address] Assigned Heart and Vascular Provider 08/09/[address] 9 [place], [place] 571915 Registered Dietitian Dietitian, Registered 09/02/22 Christiane Rodríguez MD 420 [facility] 396 [place], [place] 337235 Otolaryngology 11/12/22 Luis A Escobedo MD 420 [facility] 195 [place], [place] 455865 Assigned Surgical Provider 11/01/22 11/28/22 Chely Fernandez PA-C 909 [place], [place] 697105 Assigned Surgical Provider 11/29/22 02/06/23 Jing Cadena APRN CORRECTIONAL OFFICER CHIEF 420 [facility] 450 [place], [place] 295235 Clinical Nurse Specialist Anesthesiology 01/15/23 Radha Lopez, [facility] [address] [place] [address] Pharmacist Pharmacist 01/16/23 Luis A Escobedo MD [address] [place] [address] Assigned Surgical Provider 02/07/23 04/15/23 Geri Loza PA-C [address] [place] [address] Assigned Surgical Provider 04/16/23 Raina Patterson APRN SHIP SELF DEFENSE SYSTEM MK1 OPERATOR [address] [place] [address] Nurse Practitioner Cardiovascular Disease 05/11/23 documented as of this encounter
--- OUTSIDE RECORDS SUMMARY | 2024-01-11 23:40 | XMS_ITS | Encounter Summary ---
Author Organization [facility] Address [address] [place] [address] Care Team Providers Care Director Of Adult Epilepsy Name Role Phone Roderick Morelos MD Unavailable [phone] Magno Wood MD Unavailable [phone] Sophie Ocasio Unavailable [phone] Henny Rosales POWER ELECTRONICS ENGINEER CERTIFIED LEGAL SECRETARY SPECIALIST Unavailable [phone] [facility] Primary Care Pr ovider Sharee Oliva RD Unavailable [phone] Kaykay Duarte IT HELP DESK ANALYST Primary Care Provider [phone] Christiane Rodríguez MD Unavailable [phone] Luis A Escobedo MD Unavailable +[phone] Chely Fernandez PA-C Unavailable [phone] Jing Cadena POWER ELECTRONICS ENGINEER LCSW Unavailable [phone] Radha Lopez [facility] Unavailable [phone] Luis A Escobedo MD Unavailable [phone] Geri Loza PAEddaC Unavailable [phone] Raina Patterson POWER ELECTRONICS ENGINEER CERTIFIED LEGAL SECRETARY SPECIALIST Unavailable [phone] Encounter Details Date Type Department Care Team (Late st Contact Info) Description 08/19/2022 MyC Medical Advice [facility] [address] [place] [address] Tanya Larsen RN Social History [...] filedocumented in this encounter Care Teams Director Of Adult Epilepsy Relationship Specialty Start [place] [address] [place] [address] PCP - General 08/19/22 10/14/22 Kaykay Duarte IT HELP DESK ANALYST [address] [place] [address] [place] [address] PCP - General 10/15/22 Roderick Morelos MD [address] [place], [place] 479515 Cardiovascular Disease 02/03/22 Magno Wood MD [address] [place] [address] 396 [place], [place] 790335 Otolaryngology 02/21/22 Sophie Ocasio, AuD [address] [place] [address] 183325 Accounts Receivable Collector Audiology 02/21/22 Henny Rosales, POWER ELECTRONICS ENGINEER CERTIFIED LEGAL SECRETARY SPECIALIST [address] [place] [address] Assigned Heart and Vascular Provider 08/09/[address] [place] [address] 151535 Registered Dietitian Dietitian, Registered 09/02/22 Christiane Rodríguez MD [address] [place] [address] 396 [place], [place] 976445 Otolaryngology 11/12/22 Luis A Escobedo MD [address] [place] [address] 195 [place], [place] 045385 Assigned Surgical Provider 11/01/22 11/28/22 Chely Fernandez PA-C [address] [place] [address] 543405 Assigned Surgical Provider 11/29/22 02/06/23 Jing Cadena, POWER ELECTRONICS ENGINEER LCSW 420 [facility] 450 [place], [place] 573035 Clinical Nurse Specialist Anesthesiology 01/15/23 Radha Lopez [facility] [address] [place] [address] 475355 Pharmacist Pharmacist 01/16/23 Luis A Escobedo MD [address] [place] [address] 195 [place] [address] Assigned Surgical Provider 02/07/23 04/15/23 Geri Loza PA-C 9 [place] [address] Assigned Surgical Provider 04/16/23 Raina Patterson APRN [facility] [address] [place] [address] Nurse Practitioner Cardiovascular Disease 05/11/23 documented as of this encounter
--- OUTSIDE RECORDS SUMMARY | 2024-01-11 23:40 | XMS_ITS | Encounter Summary ---
Author Organization [place] Address [address] [place] [address] Care Team Providers Care Tool Machinist Name Role Phone [facility] Primary Care Provider Unavailable Roderick Morelos MD Unavailable [phone] Roderick Morelos MD Unavailable [phone] Magno Wood MD Unavailable [phone] Sophie Ocasio AuD Unavailable [phone] Parth Ellis MD Unavailable [phone] Roderick Morelos MD Unavailable [phone] Henny Rosales APRN INTELLIGENCE OFFICER Unavailable [phone] [facility] [place] [facility] Primary Care Pr ovider Sharee Oliva RD Unavailable [phone] Kaykay Duarte [facility] Primary Care Provider Christiane Rodríguez MD Unavailable + [phone] Luis A Escobedo MD Unavailable [phone] Chely Fernandez PA-C Unavailable +[phone] Jing Cadena POSTAL SORTING OFFICER CONTACT LENS FLASHING PUNCHER Unavailable [phone] Radha Lopez [facility] Unavailable Luis A Escobedo MD Unavailable Geri Loza PA-C Unavailable Raina Patterson APRN INTELLIGENCE OFFICER Unavailable Encounter Details Date Type Department Care Team (Late st Contact Info) Description 04/08/2022 [facility] Advice [facility] Post [address] [facility] [address] [place] [phone] Suha Wade, RN Social History Tobacco Use [...] Coronavirus/COVID-19? No / Unsure 04/09/2022 6:32 AM ROCK CLIMBING TEAM MEMBER documented as of this encounter Plan of Treatment Not on file documented as of this encounter Visit Diagnoses Not on filedocumented in this encounter Care Teams Tool Machinist Relationship Specialty Start Date End Date Ernestina Martini PCP - General Family Practice 10/12/19 08/18/22 [facility] [place] [address] [place] [address] PCP - General 08/19/22 10/14/22 Kaykay Duarte [facility] [address] [place] [address] PCP - General 10/15/22 Roderick Morelos MD [address] [place] [address] Cardiovascular Disease 02/03/22 Roderick Morelos MD [address] [place] [address] Assigned Heart and Vascular Provider 02/15/22 07/18/22 Magno Wood MD [address] [place] [address] Otolaryngology 02/21/22 Sophie Ocasio AuD [address] [place] [address] 965995 Lead Generation Marketing Manager Audiology 02/21/22 Parth Ellis MD [address] [place] 252415 Assigned Heart and Vascular Provider 07/19/22 07/25/22 Roderick Morelos MD [address] [place] [address] Assigned Heart and Vascular Provider 07/26/22 08/08/22 Henny Rosales, POSTAL SORTING OFFICER INTELLIGENCE OFFICER [address] [place] [address] Assigned Heart and Vascular Provider 08/09/22 Sharee Oliva, ÁNGEL [address] [place] [address] 095005 Registered Dietitian Dietitian, Registered 09/02/22 Christiane Rodríguez MD [address] [place] [address] 839745 Otolaryngology 11/12/22 Luis A Escobedo MD [address] [address] Assigned Surgical Provider 11/01/22 11/28/22 Chely Fernandez PA-C 909 [place], [place] 468945 Assigned Surgical Provider 11/29/22 02/06/23 Jing Cadena APRN CONTACT LENS FLASHING PUNCHER [address] 119045 Clinical Nurse Specialist Anesthesiology 01/15/23 Radha Lopez, [facility] [address] [place] [address] [phone] Pharmacist Pharmacist 01/16/23 Luis A Escobedo MD [address] [address] Assigned Surgical Provider 02/07/23 04/15/23 Geri Loza PA-C [address] [place] [address] Assigned Surgical Provider 04/16/23 Raina Patterson APRN INTELLIGENCE OFFICER [address] [place] 831045 Nurse Practitioner Cardiovascular Disease 05/11/23 documented as of this encounter
--- OUTSIDE RECORDS SUMMARY | 2024-01-11 23:40 | XMS_ITS | Encounter Summary ---
Author Organization [place] Address [address] [place] [address] Care Team Providers Care Senior Product Designer Name Role Phone Roderick Morelos MD Unavailable [phone] Magno Wood MD Unavailable [phone] Sophie Ocasio Unavailable [phone] Henny Rosales CORK MIXER UNIX SYSTEMS ADMINISTRATOR Unavailable [phone] [facility] Primary Care Pr ovider Sharee Oliva RD Unavailable [phone] Kaykay Duarte BREAKFAST ATTENDANT Primary Care Provider [phone] Christiane Rodríguez MD Unavailable [phone] Luis A Escobedo MD Unavailable +[phone] Chely Fernandez PA-C Unavailable +[phone] Jing Cadena CORK MIXER TOYS INSPECTOR Unavailable [phone] Radha Lopez [facility] Unavailable +[phone] Luis A Escobedo MD Unavailable +[phone] Geri Loza PAEddaC Unavailable [phone] Raina Patterson CORK MIXER UNIX SYSTEMS ADMINISTRATOR Unavailable +[phone] Encounter Details Date Type Department Care Team (Late st Contact Info) Description 09/29/2022 [facility] [address] 4th [place] [address] Kang Griffiths Social History Tobacco [...] filedocumented in this encounter Care Teams Senior Product Designer Relationship Specialty Start Date End Date Clinic, [facility] [place] [address] [place] [address] PCP - General 08/19/22 10/14/22 Kaykay Duarte, BREAKFAST ATTENDANT [address] [place] [address] PCP - General 10/15/22 Roderick Morelos MD [address] [place] [address] Cardiovascular Disease 02/03/22 Magno Wood MD [address] [place] [address] 812435 Otolaryngology 02/21/22 Sophie Ocasio AuD [address] [place] [address] 076845 Pediatric Speech Language Pathologist Audiology 02/21/22 Henny Rosales, CORK MIXER UNIX SYSTEMS ADMINISTRATOR [address] [place] [address] Assigned Heart and Vascular Provider 08/09/[address] 909 [place], [place] 077695 Registered Dietitian Dietitian, Registered 09/02/22 Christiane Rodríguez MD 420 [facility] 396 [place], [place] 553865 Otolaryngology 11/12/22 Luis A Escoebdo MD [address] [place] [address] 195 [place], [place] 654825 Assigned Surgical Provider 11/01/22 11/28/22 Chely Fernandez PA-C [address] [place] [address] 055945 Assigned Surgical Provider 11/29/22 02/06/23 Jing Cadena, CORK MIXER TOYS INSPECTOR 420 [facility] 450 [place], [place] 508695 Clinical Nurse Specialist Anesthesiology 01/15/23 Radha Lopez, [facility] [address] [place] [address] 691215 Pharmacist Pharmacist 01/16/23 Luis A Escobedo MD [address] [place] [address] 195 [place], [place] 460095 Assigned Surgical Provider 02/07/23 04/15/23 Geri Loza PA-C 909 [place] [address] Assigned Surgical Provider 04/16/23 Raina Patterson APRN UNIX SYSTEMS ADMINISTRATOR [address] [place] [address] Nurse Practitioner Cardiovascular Disease 05/11/23 documented as of this encounter
--- OUTSIDE RECORDS SUMMARY | 2024-01-11 23:40 | XMS_ITS | Encounter Summary ---
Author Organization [place] Address [address] [place] [address] Care Team Providers Care Energy Analyst Name Role Phone [facility] Provider Unavailable Roderick Morelos MD Unavailable [phone] Roderick Morelos MD Unavailable [phone] Magno Wood MD Unavailable [phone] Sophie Ocasio AuD Unavailable +[phone] Parth Ellis MD Unavailable +[phone] Roderick Morelos MD Unavailable [phone] Henny Rosales APRN 911 EMERGENCY DISPATCHER Unavailable +[phone] [facility] Primary Care Pr ovider Sharee Oliva RD Unavailable [phone] Kaykay Duarte ART HISTORIAN Primary Care Provider Christiane Rodríguez MD Unavailable + [phone] Luis A Escobedo MD Unavailable [phone] Chely Fernandez PA-C Unavailable +[phone] Jing Cadena PROPERTY TECHNICIAN MAINTENANCE WELDER Unavailable + [phone] Radha Lopez [facility] Unavailable Luis A Escobedo MD Unavailable Geri Loza PA-C Unavailable UzielkeriRaina APRN 911 EMERGENCY DISPATCHER Unavailable Encounter Details Date Type Department Care Team (Late st Contact Info) Description 04/01/2022 [facility] [address] 4th [place] [address] [facility] Social History Tobacco Use Types Packs/Day [...] on filedocumented in this encounter Care Teams Energy Analyst Relationship Specialty Start Date End Date Ernestina Martini PCP - General Family Practice 10/12/19 08/18/22 [facility] [place] [address] [place] [address] PCP - General 08/19/22 10/14/22 [place] [address] [place] [address] PCP - General 10/15/22 Roderick Morelos MD [address] [place] 079955 Cardiovascular Disease 02/03/22 Roderick Morelos MD [address] [place] [address] Assigned Heart and Vascular Provider 02/15/22 07/18/22 Magno Wood MD 420 [facility] 396 [place], [place] 386365 Otolaryngology 02/21/22 Sophie Ocasio AuD [address] [place] [address] 068935 Extrusion Engineer Audiology 02/21/22 Parth Ellis MD [address] [place], [place] 637125 Assigned Heart and Vascular Provider 07/19/22 07/25/22 Roderick Morelos MD [address] [place] [address] Assigned Heart and Vascular Provider 07/26/22 08/08/22 Henny Rosales APRN 911 EMERGENCY DISPATCHER [address] [place] [address] Assigned Heart and Vascular Provider 08/09/22 Sharee Oliva, ÁNGEL [address] [place] [address] 363565 Registered Dietitian Dietitian, Registered 09/02/22 Christiane Rodríguez MD 420 [facility] 396 [place], [place] 603095 Otolaryngology 11/12/22 Luis A Escobedo MD [address] [place] [address] 087285 Assigned Surgical Provider 11/01/22 11/28/22 Chely Fernandez PA-C 909 [place], [place] 966865 Assigned Surgical Provider 11/29/22 02/06/23 Jing Cadena APRN MAINTENANCE WELDER 420 [facility] 450 [place] [address] Clinical Nurse Specialist Anesthesiology 01/15/23 Radha Lopez, [facility] 909 [place], [place] 817565 Pharmacist Pharmacist 01/16/23 Luis A Escobedo MD 420 [facility] 195 [place], [place] 748045 Assigned Surgical Provider 02/07/23 04/15/23 Geri Loza PA-C 909 [place], [place] 399455 Assigned Surgical Provider 04/16/23 Raina Patterson APRN 911 EMERGENCY DISPATCHER [address] [facility] [address] [place] 570095 Nurse Practitioner Cardiovascular Disease 05/11/23 documented as of this encounter
--- OUTSIDE RECORDS SUMMARY | 2024-01-11 23:40 | XMS_ITS | Encounter Summary ---
Author Organization [place] Address [address] [place] [address] Care Team Providers Care Horse Stud Manager Name Role Phone Roderick Morelos MD Unavailable [phone] Magno Wood MD Unavailable [phone] Sophie Ocasio Unavailable [phone] Henny Rosales INFORMATION SUPPORT PROJECT MANAGER STAGE SETTINGS PAINTER Unavailable +[phone] [facility], [facility] Primary Care Pr ovider Sharee Oliva RD Unavailable [phone] Kaykay Duarte GRANULAR OPERATOR Primary Care Provider [phone] Christiane Rodríguez MD Unavailable [phone] Luis A Escobedo MD Unavailable +[phone] Chely FernandezC Unavailable [phone] Jing Cadena INFORMATION SUPPORT PROJECT MANAGER TEST DECK SUPERVISOR Unavailable + [phone] Radha Lopez [facility] Unavailable +[phone] Luis A Escobedo MD Unavailable [phone] Geri Loza PA-C Unavailable +[phone] Raina Patterson INFORMATION SUPPORT PROJECT MANAGER STAGE SETTINGS PAINTER Unavailable +[phone] Reason for Visit * Reason Onset Date Comments Prior Auth - Medication 09/03/2022 Orlistat -PA DENIED Encounter Details Date Type Department Care Team (Late st Contact Info) Description 09/03/2022 Telephone [facility] [address] [place] [address] Geri Loza PA-C 909 [place], [place] 478295 Prior Auth - Medication (Orlistat-PA DENIED ) [...] Team PA Initiation Medication: Orlistat Insurance Company: [employer] - Pharmacy Filling the Rx: [id number] - [place] - [phone] Filling Pharmacy Filling Pharmacy Fax: Start Date: [...] ?? Gastric sleeve was completed 08/09/[address] [facility] [address] Barillas. Starting weight 338lb, BMI 56.25. She felt that instantly did not see expected weight loss results. Per chart review had lost 8lbsby 3 months post op and has followed up with [facility] since. She has lost 38lbs since surgery, andhas been able maintain weight loss of 305lbs for many years. However, continues to feel that is inadequet weight loss and wanted to discuss a conversion to RYGB today. Insurance Name: Insurance ID: Pharmacy Information (if different than what is on RX) Name: [facility][id number] - [place] [id number] [place] * Telephone Encounter - Rowena Small - 09/03/2022 8:44 AM CDT Reason for Call: Prior Auth Detailed comments: Pt states [facility] said a PA is required [...] on filedocumented in this encounter Care Teams Horse Stud Manager Relationship Specialty Start Date End Date Clinic, [place] [place] [address] [place] [address] PCP - General 08/19/22 10/14/22 Kaykay Duarte, GRANULAR OPERATOR [address] [place] [address] PCP - General 10/15/22 Roderick Morelos MD [address] [place] [address] Cardiovascular Disease 02/03/22 Magno Wood MD [address] [place] [address] 396 [place], [place] 006445 Otolaryngology 02/21/22 Sophie Ocasio AuD [address] [place] [address] 235695 Grain Combiner Audiology 02/21/22 Henny Rosales APRN STAGE SETTINGS PAINTER [address] [place] [address] Assigned Heart and Vascular Provider 08/09/[address] [place] [address] 829805 Registered Dietitian Dietitian, Registered 09/02/22 Christiane Rodríguez MD 420 [facility] 396 [place], [place] 895355 Otolaryngology 11/12/22 Luis A Escobedo MD 420 [facility] 195 [place], [place] 867585 Assigned Surgical Provider 11/01/22 11/28/22 Chely Fernandez PA-C [address] [place] [address] 125515 Assigned Surgical Provider 11/29/22 02/06/23 Jing Cadena APRN TEST DECK SUPERVISOR 420 [facility] 450 [place], [place] 698245 Clinical Nurse Specialist Anesthesiology 01/15/23 Radha Lopez, [facility] [address] [place] [address] 650165 Pharmacist Pharmacist 01/16/23 Luis A Escobedo MD 420 [facility] 195 [place], [place] 587915 Assigned Surgical Provider 02/07/23 04/15/23 Geri Loza PA-C 909 [place], [place] 584015 Assigned Surgical Provider 04/16/23 Raina Patterson APRN STAGE SETTINGS PAINTER [address] [place] [address] Nurse Practitioner Cardiovascular Disease 05/11/23 documented as of this encounter
--- OUTSIDE RECORDS SUMMARY | 2024-01-11 23:40 | XMS_ITS | Encounter Summary ---
Author Organization [place] Address [address] [place] [address] Care Team Providers Care Firing Pin Gauger Name Role Phone Roderick Morelos MD Unavailable [phone] Magno Wood MD Unavailable [phone] Sophie Ocasio Unavailable +[phone] Henny Rosales MANAGER SENIOR GRADUATE ADVISOR Unavailable [phone] [facility] Primary Care Pr ovider Sharee Oliva RD Unavailable [phone] Kaykay Duarte FINISH CLEANER Primary Care Provider [phone] Christiane Rodríguez MD Unavailable [phone] Luis A Escobedo MD Unavailable +[phone] Chely Fernandez PA-C Unavailable [phone] Jing Cadena MANAGER DIRECTIONAL DRILLER Unavailable [phone] Radha Lopez [facility] Unavailable +[phone] Luis A Escobedo MD Unavailable [phone] Geri Loza PAEddaC Unavailable [phone] Raina Patterson MANAGER SENIOR GRADUATE ADVISOR Unavailable [phone] Encounter Details Date Type Department Care Team (Late st Contact Info) Description 09/09/2022 Telephone [facility] [place] [address] [place] [address] 4th [place] [address] Geri Loza PA-C 909 [place] [address] Social History Tobacco Use Types Packs/Day Years [...] other options/alternatives she has. Patient stated Geri Gayatn had suggested [facility]. Please advise. [phone] okay to leave VM or send MyChart, patient isn't always able to answer when she's working documented in this encounter Plan of Treatment Not on file documented as of this encounter Visit Diagnoses Not on filedocumented in this encounter Care Teams Firing Pin Gauger Relationship Specialty Start [place] [address] [place] [address] PCP - General 08/19/22 10/14/22 Kaykay Duarte FINISH CLEANER [address] [place] [address] PCP - General 10/15/22 Roderick Morelos MD [address] [place] [address] Cardiovascular Disease 02/03/22 Magno Wood MD [address] [place] [address] 396 [place] [address] Otolaryngology 02/21/22 Sophie Ocasio AuD [address] [place] [address] Ultrasonic Hand Solderer Audiology 02/21/22 Henny Rosales APRN SENIOR GRADUATE ADVISOR [address] [place] [address] Assigned Heart and Vascular Provider 08/09/[address] [place] [address] 860805 Registered Dietitian Dietitian, Registered 09/02/22 Christiane Rodríguez MD [address] [place] [address] Otolaryngology 11/12/22 Luis A Escobedo MD [address] [place] [address] 279175 Assigned Surgical Provider 11/01/22 11/28/22 Chely Fernandez PA-C [address] [place] [address] 689005 Assigned Surgical Provider 11/29/22 02/06/23 Jing Cadena APRN DIRECTIONAL DRILLER 420 [facility] 450 [place], [place] 144985 Clinical Nurse Specialist Anesthesiology 01/15/23 Radha Lopez, [facility] 909 [place], [place] 076415 Pharmacist Pharmacist 01/16/23 Luis A Escobedo MD 420 [facility] 195 [place], [place] 846195 Assigned Surgical Provider 02/07/23 04/15/23 Geri Loza PA-C 909 [place], [place] 198995 Assigned Surgical Provider 04/16/23 Raina Patterson APRN SENIOR GRADUATE ADVISOR [address] [place] [address]855 Nurse Practitioner Cardiovascular Disease 05/11/23 documented as of this encounter
--- OUTSIDE RECORDS SUMMARY | 2024-01-11 23:40 | XMS_ITS | Encounter Summary ---
Author Organization [place] Address [address] [place] [address] Care Team Providers Care Gear Finisher Name Role Phone Roderick Morelos MD Unavailable [phone] Magno Wood MD Unavailable [phone] Sophie Ocasio Unavailable [phone] Henny Rosales IT GENERALIST SOLAR SALES CONSULTANT Unavailable [phone] [facility], [facility] Primary Care Pr ovider Sharee Oliva RD Unavailable [phone] Kaykay Duarte BOX TRUCK WASHER Primary Care Provider [phone] Christiane Rodríguez MD Unavailable [phone] Luis A Escobedo MD Unavailable +[phone] Chely Fernandez PA-C Unavailable [phone] Jign Cadena IT GENERALIST FREEZER WORKER Unavailable [phone] Radha Lopez [facility] Unavailable +[phone] Luis A Escobedo MD Unavailable [phone] Geri Loza PAEddaC Unavailable [phone] Raina Patterson IT GENERALIST SOLAR SALES CONSULTANT Unavailable +[phone] Encounter Details Date Type Department Care Team (Late st Contact Info) Description 09/15/2022 MyC Medical Advice [facility] [address] 4th [place] [address] Maria Guadalupe Wolfe Social History [...] on filedocumented in this encounter Care Teams Gear Finisher Relationship Specialty Start Date End Date Clinic, [place] [address] [place] [address] PCP - General 08/19/22 10/14/22 Kaykay Duarte, BOX TRUCK WASHER [address] [place] [address] PCP - General 10/15/22 Roderick Morelos MD [address] [place], [place] 754765 Cardiovascular Disease 02/03/22 Magno Wood MD [address] [place] [address] 188155 Otolaryngology 02/21/22 Sophie Ocasio AuD [address] [place] [address] 665145 Analytics Associate Audiology 02/21/22 Henny Rosales, IT GENERALIST SOLAR SALES CONSULTANT [address] [place] [address] Assigned Heart and Vascular Provider 08/09/[address] 9 [place] [address] Registered Dietitian Dietitian, Registered 09/02/22 Christiane Rodríguez MD 420 [facility] 396 [place], [place] 980715 Otolaryngology 11/12/22 Luis A Escobedo MD [address] [place] [address] 195 [place], [place] 098315 Assigned Surgical Provider 11/01/22 11/28/22 Chely Fernandez PA-C [address] [place] [address] 055735 Assigned Surgical Provider 11/29/22 02/06/23 Jing Cadena, IT GENERALIST FREEZER WORKER [address] [place] [address] 450 [place], [place] 487275 Clinical Nurse Specialist Anesthesiology 01/15/23 Radha Lopez, [facility] [address] [place] [address] 111925 Pharmacist Pharmacist 01/16/23 Luis A Escobedo MD [address] [place] [address] 195 [place], [place] 741195 Assigned Surgical Provider 02/07/23 04/15/23 Geri Loza PA-C 909 [place] [address] Assigned Surgical Provider 04/16/23 Raina Patterson APRN SOLAR SALES CONSULTANT [address] [place] [address] Nurse Practitioner Cardiovascular Disease 05/11/23 documented as of this encounter
--- OUTSIDE RECORDS SUMMARY | 2024-01-11 23:40 | XMS_ITS | Encounter Summary ---
Author Organization [place] Address [address] [place] [address] Care Team Providers Care Perforator Typist Name Role Phone Roderick Morelos MD Unavailable [phone] Magno Wood MD Unavailable [phone] Sophie Ocasio Unavailable [phone] Henny Rosales EXECUTIVE CYBER LEADER TUNNEL HEADING SUPERVISOR Unavailable [phone] [facility] Primary Care Pr ovider Sharee Oliva RD Unavailable [phone] Kaykay Duarte RAILROAD CROSSING PROTECTION MAINTAINER Primary Care Provider [phone] Christiane Rodríguez MD Unavailable [phone] Luis A Escobedo MD Unavailable +[phone] Chely Fernandez PA-C Unavailable [phone] Jing Cadena EXECUTIVE CYBER LEADER SENIOR WIND TURBINE TECHNICIAN Unavailable [phone] Radha Lopez [facility] Unavailable [phone] Luis A Escboedo MD Unavailable [phone] Geri Loza PAEddaC Unavailable [phone] Raina Patterson EXECUTIVE CYBER LEADER TUNNEL HEADING SUPERVISOR Unavailable +[phone] Encounter Details Date Type Department Care Team (Late st Contact Info) Description 08/25/2022 Telephone [facility] [address]th [place] [address] Geri Loza PA-C 9 [place] [address] Social History Tobacco Use Types Packs/Day Years [...] on filedocumented in this encounter Care Teams Perforator Typist Relationship Specialty Start Date End Date Clinic, [place]via [place] [address] [place] [address] 457547 PCP - General 08/19/22 10/14/22 Kaykay Duarte, RAILROAD CROSSING PROTECTION MAINTAINER [address] [place] [address] PCP - General 10/15/22 Roderick Morelos MD [address] [place], [place] 428405 Cardiovascular Disease 02/03/22 Magno Wood MD 420 [facility] 396 [place] [address] Otolaryngology 02/21/22 Sophie Ocasio AuD 909 [place], [place] 238695 Risk Developer Audiology 02/21/22 Henny Rosales APRN TUNNEL HEADING SUPERVISOR [address] [place] [address] Assigned Heart and Vascular Provider 08/09/[address] 909 [place], [place] 190995 Registered Dietitian Dietitian, Registered 09/02/22 Christiane Rodríguez MD 420 [facility] 396 [place] [address] Otolaryngology 11/12/22 Luis A Escobedo MD 420 [facility] 195 [place], [place] 76582455 Assigned Surgical Provider 11/01/22 11/28/22 Chely Fernandez PA-C 909 [place], [place] 837245 Assigned Surgical Provider 11/29/22 02/06/23 Jing Cadena APRN SENIOR WIND TURBINE TECHNICIAN 420 [facility] 450 [place] [address] Clinical Nurse Specialist Anesthesiology 01/15/23 Radha Lopez [facility] [address] [place] [address] 350605 Pharmacist Pharmacist 01/16/23 Luis A Escobedo MD 420 [facility] 195 [place], [place] 504695 Assigned Surgical Provider 02/07/23 04/15/23 Geri Loza PA-C [address] [place] [address] 912115 Assigned Surgical Provider 04/16/23 Raina Patterson APRN TUNNEL HEADING SUPERVISOR [address] [facility] [address] [place] 279335 Nurse Practitioner Cardiovascular Disease 05/11/23 documented as of this encounter
--- OUTSIDE RECORDS SUMMARY | 2024-01-11 23:40 | XMS_ITS | Encounter Summary ---
Author Organization [place] Address [address] [place] [address] Care Team Providers Care Autopsy Assistant Name Role Phone Elvia Nugent Brow[place] Primary Care Provider Unavailable Roderick Morelos MD Unavailable [phone] Magno Wood MD Unavailable [phone] Sohpie Ocasio Unavailable [phone] Henny Rosales TALENT COORDINATOR MULTIMEDIA PRODUCER Unavailable [phone] [facility] [place] Primary Care Pr ovider Sharee Oliva RD Unavailable [phone] Kaykay Duarte LIFE SKILLS EDUCATOR Primary Care Provider [phone] Christiane Rodríguez MD Unavailable [phone] Luis A Escobedo MD Unavailable +[phone] Chely FernandezC Unavailable [phone] Jing Cadena APRN SHOP WORKER Unavailable +[phone] Radha Lopez [facility] Unavailable [phone] Luis A Escobedo MD Unavailable [phone] Geri Loza PA-C Unavailable [phone] Raina Patterson TALENT COORDINATOR MULTIMEDIA PRODUCER Unavailable Encounter Details Date Type Department Care Team (Late st Contact Info) Description 08/16/2022 [facility] [address] 4th [place] [address] Kang Griffiths Social History Tobacco [...] on filedocumented in this encounter Care Teams Autopsy Assistant Relationship Specialty Start Date End Date Ernestina Martini PCP - General Family Practice 10/12/19 08/18/22 [facility] [place] [address] [place] [address] PCP - General 08/19/22 10/14/22 [place] [address] [place] [address] PCP - General 10/15/22 Roderick Moreols MD [address] [place] [address] Cardiovascular Disease 02/03/22 Magno Wood MD [address] [place] [address] [facility] 396 [place], [place] 261275 Otolaryngology 02/21/22 Sophie Ocasio AuD 9 [place], [place] 298005 [facility] Audiology 02/21/22 Henny Rosales APRN MULTIMEDIA PRODUCER [address] [place] [address] Assigned Heart and Vascular Provider 08/09/[address] [place] [address] 897035 Registered Dietitian Dietitian, Registered 09/02/22 Christiane Rodríguez MD 420 [facility] 396 [place] [address] Otolaryngology 11/12/22 Luis A Escobedo MD 420 [facility] 195 [place] [address] Assigned Surgical Provider 11/01/22 11/28/22 Chely Fernandez PA-C [address] [place] [address] Assigned Surgical Provider 11/29/22 02/06/23 Jing Cadena APRN SHOP WORKER 420 [facility] 450 [place] [address] Clinical Nurse Specialist Anesthesiology 01/15/23 Radha Lopez [facility] [address] [place] [address] 715425 Pharmacist Pharmacist 01/16/23 Luis A Escobedo MD 420 [facility] 195 [place], [place] 456675 Assigned Surgical Provider 02/07/23 04/15/23 Geri Loza PA-C 909 [place], [place] 427895 Assigned Surgical Provider 04/16/23 Raina Patterson APRN MULTIMEDIA PRODUCER [address] [place], [place] 659125 Nurse Practitioner Cardiovascular Disease 05/11/23 documented as of this encounter
--- OUTSIDE RECORDS SUMMARY | 2024-01-11 23:40 | XMS_ITS | Encounter Summary ---
Author Organization [place] Address [address] [place] [address] Care Team Providers Care Fire Watcher Name Role Phone Roderick Morelos MD Unavailable Magno Wood MD Unavailable [phone] Sophie Ocasio AuD Unavailable [phone] Henny Rosales ELECTROMECHANICAL EQUIPMENT ASSEMBLER SKID MACHINE OPERATOR Unavailable [phone] Unavailable [phone] Kaykay Duarte COMPUTER OPERATIONS TECHNICIAN Primary Care Provider [phone] Christiane Rodríguez MD Unavailable +[phone] Luis A Escobedo MD Unavailable [phone] Chely Fernandez-C Unavailable [phone] Jing Cadena APRN CLOTH BOIL OFF MACHINE OPERATOR Unavailable Radha Lopez [facility] Unavailable [phone] Luis A Escobedo MD Unavailable [phone] Geri LozaC Unavailable [phone] Raina Patterson APRN SKID MACHINE OPERATOR Unavailable +[phone] Encounter Details Date Type Department Care Team (Late st Contact Info) Description 10/16/2022 My[facility] Medical Advice Initial Department Mychart, [place] Social History Tobacco Use Types Packs/Day Years [...] as of this encounter Care Teams Fire Watcher Relationship Specialty Start Date End Date Kaykay Duarte, COMPUTER OPERATIONS TECHNICIAN [address] [place] [address] [place] 536477 PCP - General 10/15/22 Roderick Morelos MD [address] [place], [place] 784265 Cardiovascular Disease 02/03/22 Magno Wood MD 420 [facility] 396 [place], [place] 906055 Otolaryngology 02/21/22 Sophie Ocasio AuD 909 [place], [place] 328895 Acute Care Physician Audiology 02/21/22 Henny Rosales, ELECTROMECHANICAL EQUIPMENT ASSEMBLER SKID MACHINE OPERATOR [address] [place] [address] Assigned Heart and Vascular Provider 08/09/[address] 909 [place], [place] 870245 Registered Dietitian Dietitian, Registered 09/02/22 Christiane Rodríguez MD 420 [facility] 396 [place], [place] 939215 Otolaryngology 11/12/22 Luis A Escobedo MD [address] [place] [address] 195 [place] [address] Assigned Surgical Provider 11/01/22 11/28/22 Chely Fernandez PA-C [address] [place] [address] 343705 Assigned Surgical Provider 11/29/22 02/06/23 Jing Cadena, ELECTROMECHANICAL EQUIPMENT ASSEMBLER CLOTH BOIL OFF MACHINE OPERATOR 420 [facility] 450 [place], [place] 573045 Clinical Nurse Specialist Anesthesiology 01/15/23 Radha Lopez [facility] 9 [place], [place] 216485 Pharmacist Pharmacist 01/16/23 Luis A Escobedo MD [address] [place] [address] 195 [place], [place] 846525 Assigned Surgical Provider 02/07/23 04/15/23 Geri Loza PA-C 9 [place] [address] Assigned Surgical Provider 04/16/23 Raina Patterson APRN SKID MACHINE OPERATOR [address] [place] [address] Nurse Practitioner Cardiovascular Disease 05/11/23 documented as of this encounter
--- OUTSIDE RECORDS SUMMARY | 2024-01-11 23:40 | XMS_ITS | Encounter Summary ---
Author Organization [place] Address [address] [place] [address] Care Team Providers Care See Supervisor Name Role Phone Roderick Morelos MD Unavailable [phone] Magno Wood MD Unavailable [phone] Sophie Ocasio Unavailable [phone] Henny Rosales CYBER SECURITY CONSULTANT VIRTUAL CLASSROOM MANAGER Unavailable [phone] [facility] Primary Care Pr ovider Sharee Oliva RD Unavailable [phone] Kaykay Duarte MANAGER PRODUCT Primary Care Provider [phone] Christiane Rodríguez MD Unavailable [phone] Luis A Escobedo MD Unavailable +[phone] Cheyl Fernandez PA-C Unavailable [phone] Jing Cadena CYBER SECURITY CONSULTANT INSULATION ESTIMATOR Unavailable +[phone] Radha Lopez [facility] Unavailable +[phone] Luis A Escobedo MD Unavailable [phone] Geri Loza PAEddaC Unavailable [phone] Raina Patterson CYBER SECURITY CONSULTANT VIRTUAL CLASSROOM MANAGER Unavailable [phone] Encounter Details Date Type Department Care Team (Late st Contact Info) Description 09/15/2022 [facility] [address] 4th [place] [address] Kang Griffiths Social History Tobacco [...] on filedocumented in this encounter Care Teams See Supervisor Relationship Specialty Start [place] [address] [place] [address] PCP - General 08/19/22 10/14/22 Kaykay Duarte, MANAGER PRODUCT [address] [place] [address] PCP - General 10/15/22 Roderick Morelos MD [address] [place], [place] 708025 Cardiovascular Disease 02/03/22 Mango Wood MD [address] [place] [address] 126475 Otolaryngology 02/21/22 Sophie Ocasio AuD [address] [place] [address] 596175 [employer] Audiology 02/21/22 Henny Rosales, CYBER SECURITY CONSULTANT VIRTUAL CLASSROOM MANAGER [address] [place] [address] Assigned Heart and Vascular Provider 08/09/[address] 9 [place] [address] Registered Dietitian Dietitian, Registered 09/02/22 Christiane Rodríguez MD 420 [facility] 396 [place], [place] 169985 Otolaryngology 11/12/22 Luis A Escobedo MD [address] [place] [address] 195 [place], [place] 970995 Assigned Surgical Provider 11/01/22 11/28/22 Chely Fernandez PA-C [address] [place] [address] 710225 Assigned Surgical Provider 11/29/22 02/06/23 Jing Cadena, CYBER SECURITY CONSULTANT INSULATION ESTIMATOR [address] [place] [address] 450 [place], [place] 969725 Clinical Nurse Specialist Anesthesiology 01/15/23 Radha Lopez, [facility] [address] [place] [address] 817875 Pharmacist Pharmacist 01/16/23 Luis A Escobedo MD [address] [place] [address] 195 [place], [place] 709995 Assigned Surgical Provider 02/07/23 04/15/23 Geri Loza PA-C 909 [place] [address] Assigned Surgical Provider 04/16/23 Raina Patterson APRN VIRTUAL CLASSROOM MANAGER [address] [place] [address] Nurse Practitioner Cardiovascular Disease 05/11/23 documented as of this encounter
--- OUTSIDE RECORDS SUMMARY | 2024-01-11 23:40 | XMS_ITS | Encounter Summary ---
Author Organization [place] Address [address] [place] [address] Care Team Providers Care Land Appraiser Name Role Phone Roderick Morelos MD Unavailable [phone] Magno Wood MD Unavailable [phone] Sophie Ocasio Unavailable [phone] Henny Rosales ROUGH AND TRUING MACHINE OPERATOR IP LITIGATION ASSOCIATE Unavailable [phone] Unavailable [phone] Kaykay Duarte ICE SKATING TEACHER Primary Care Provider [phone] Christiane Rodríguez MD Unavailable Luis A Escobedo MD Unavailable [phone] Chely Fernandez-C Unavailable [phone] Jing Cadena APRN MRI ASSISTANT Unavailable Radha Lopez [facility] Unavailable [phone] Luis A Escobedo MD Unavailable [phone] Geri LozaC Unavailable [phone] Raina Patterson APRN IP LITIGATION ASSOCIATE Unavailable [phone] Encounter Details Date Type Department Care Team (Late st Contact Info) Description 10/15/2022 [facility] Adv[facility] [place] [address] [facility] SE 4th [place] [address] Luis A Escobedo MD [address] [place] [address] [facility] 195 [place], [place] 239665 Social History Tobacco Use Types Packs/Day Years [...] Type Associated Problems Recent Progress Patient-Stated? Author BIRAN PATHWAY SURGERY IS SCHEDULED Care Plan BRIAN PATHWAY SURGERY IS SCHEDULED No Luis A Escobedo MD documented as of this encounter Visit Diagnoses Not on filedocumented in this encounter Additional Health Concerns Active Problems Noted Date Diagnosed Date BRIAN PATHWAY SURGERY IS SCHEDULED 10/15/2022 documented as of this encounter Care Teams Land Appraiser Relationship Specialty [place] [address] [place] [address] PCP - General 10/15/22 Roderick Morelos MD [address] [place] 526345 Cardiovascular Disease 02/03/22 Magno Wood MD [address] [place] [address] [facility] 396 [place], [place] 912565 Otolaryngology 02/21/22 Sophie Ocasio AuD 909 [place], [place] 438725 Aquaculturist Audiology 02/21/22 Henny Rosales APRN IP LITIGATION ASSOCIATE [address] [place] [address] Assigned Heart and Vascular Provider 08/09/[address] [place] [address] 872965 Registered Dietitian Dietitian, Registered 09/02/22 Christiane Rodríguez MD 420 [facility] 396 [place], [place] 799545 Otolaryngology 11/12/22 Luis A Escobedo MD 420 [facility] 195 [place] [address] Assigned Surgical Provider 11/01/22 11/28/22 Chely Fernandez PA-C [address] [place] [address] 080535 Assigned Surgical Provider 11/29/22 02/06/23 Jing Cadena ROUGH AND TRUING MACHINE OPERATOR MRI ASSISTANT 420 [facility] 450 [place], [place] 423035 Clinical Nurse Specialist Anesthesiology 01/15/23 Radha Lopez [facility] [address] [place] [address] 842065 Pharmacist Pharmacist 01/16/23 Luis A Escobedo MD 420 [facility] 195 [place] [address] Assigned Surgical Provider 02/07/23 04/15/23 Geri Loza PA-C 909 [place] [address] Assigned Surgical Provider 04/16/23 Raina Patterson APRN [facility] [address] [place], [place] 506845 Nurse Practitioner Cardiovascular Disease 05/11/23 documented as of this encounter
--- OUTSIDE RECORDS SUMMARY | 2024-01-11 23:40 | XMS_ITS | Encounter Summary ---
Author Organization [facility] Address [address] [place] [address] 49987 Care Team Providers Care Direct Sales Professional Name Role Phone Roderick Morelos MD Unavailable [phone] Magno Wood MD Unavailable [phone] Sophie Ocasio Unavailable [phone] Henny Rosales SLABBER LIGHT OFFICE NURSE PRACTITIONER Unavailable [phone] [facility] Primary Care Pr ovider Sharee Oliva RD Unavailable [phone] Kaykay Duarte CARDIAC CATH RN Primary Care Provider [phone] Christiane Rodríguez MD Unavailable [phone] Luis A Escobedo MD Unavailable +[phone] Chely Fernandez PA-C Unavailable [phone] Jing Cadena SLABBER LIGHT TIE TAMPER Unavailable [phone] Radha Lopez [facility] Unavailable [phone] Luis A Escobedo MD Unavailable [phone] Geri Loza PAEddaC Unavailable [phone] Raina Patterson SLABBER LIGHT OFFICE NURSE PRACTITIONER Unavailable [phone] Encounter Details Date Type Department Care Team (Late st Contact Info) Description 08/19/2022 Telephone M [facility] Weight Management [facility] [place] [address] [place] [address] 4th [place] [address] Geri Loza PA-C 909 [place] [address] Social History Tobacco Use Types Packs/Day Years [...] her insurance won't pay for them at [facility] and she needs the lab orders sent to [facility] in [place]. Please send myc msg to pt once lab orders sent. documented in this encounter Plan of Treatment Not on file documented as of this encounter Visit Diagnoses Not on filedocumented in this encounter Care Teams Direct Sales Professional Relationship Specialty Start Date End Date [place], [place] [address] [place], [place] 000287 PCP - General 08/19/22 10/14/22 [place] [address] [facility] [place] [address] PCP - General 10/15/22 Roderick Morelos MD [address] [place] [address] Cardiovascular Disease 02/03/22 Magno Wood MD 420 [facility] 396 [place] [address] Otolaryngology 02/21/22 Sophie Ocasio AuD [address] [place] [address] 825625 Head Of History Audiology 02/21/22 Henny Rosales APRN OFFICE NURSE PRACTITIONER [address] [place] [address] Assigned Heart and Vascular Provider 08/09/[address] [place] [address] 392405 Registered Dietitian Dietitian, Registered 09/02/22 Christiane Rodríguez MD [address] [place] [address] 568585 Otolaryngology 11/12/22 Luis A Escobedo MD [address] [place] [address] 583885 Assigned Surgical Provider 11/01/22 11/28/22 Chely Fernandez PA-C [address] [place] [address] 805515 Assigned Surgical Provider 11/29/22 02/06/23 Jing Cadena APRN TIE TAMPER 420 [facility] 450 [place], [place] 298825 Clinical Nurse Specialist Anesthesiology 01/15/23 Radha Lopez, [facility] 909 [place], [place] 659155 Pharmacist Pharmacist 01/16/23 Luis A Escobedo MD 420 [facility] 195 [place], [place] 179485 Assigned Surgical Provider 02/07/23 04/15/23 Geri Loza PA-C 909 [place], [place] 803675 Assigned Surgical Provider 04/16/23 Raina Patterson, GINA OFFICE NURSE PRACTITIONER [address] [place] 130705 Nurse Practitioner Cardiovascular Disease 05/11/23 documented as of this encounter
--- OUTSIDE RECORDS SUMMARY | 2024-01-11 23:40 | XMS_ITS | Encounter Summary ---
Author Organization [facility] Address [address] [place] [address] Care Team Providers Care Archaeology Professor Name Role Phone [facility] Primary Care Provider Unavailable Roderick Morelos MD Unavailable [phone] Roderick Morelos MD Unavailable [phone] Magno Wood MD Unavailable [phone] Sophie Ocasio AuD Unavailable [phone] Parth Ellis MD Unavailable [phone] Roderick Morelos MD Unavailable [phone] Henny Rosales APRN PROFESSOR OF PATHOLOGY Unavailable [phone] [facility] Primary Care Pr ovider Sharee Oliva RD Unavailable Kaykay Duarte MAIL DELIVERY SUPERVISOR Primary Care Provider Christiane Rodríguez MD Unavailable [phone] Luis A Escobedo MD Unavailable [phone] Chely Fernandez PA-C Unavailable [phone] Jing Cadena RESIDENTIAL SALES REP REVENUE INSPECTOR Unavailable + [phone] Radha Lopez [facility] Unavailable Luis A Escobedo MD Unavailable Geri Loza PA-C Unavailable Raina Patterson APRN PROFESSOR OF PATHOLOGY Unavailable Encounter Details Date Type Department Care Team (Late st Contact Info) Description 05/14/2022 [place] [facility] Nose and Thro[facility] [address] 4th [place] [address] Jessi Mantilla LPN Social History [...] on filedocumented in this encounter Care Teams Archaeology Professor Relationship Specialty Start Date End Date Ernestina Martini PCP - General Family Practice 10/12/19 08/18/22 [facility] [address] [place] [address] PCP - General 08/19/22 10/14/22 [place] [address] [facility] [place] [address] PCP - General 10/15/22 Roderick Morelos MD [address] [place] 137315 Cardiovascular Disease 02/03/22 Roderick Morelos MD [address] [place] [address] Assigned Heart and Vascular Provider 02/15/22 07/18/22 Magno Wood MD 420 [facility] 396 [place], [place] 900025 Otolaryngology 02/21/22 Sophie Ocasio AuD 909 [place], [place] 129755 [facility] 02/21/22 Parth Ellis MD [address] [place], [place] 061335 Assigned Heart and Vascular Provider 07/19/22 07/25/22 Roderick Morelos MD [address] [place] 641325 Assigned Heart and Vascular Provider 07/26/22 08/08/22 Henny Rosales APRN PROFESSOR OF PATHOLOGY [address] [place] [address] Assigned Heart and Vascular Provider 08/09/22 Sharee Oliva, ÁNGEL [address] [place] [address] Registered Dietitian Dietitian, Registered 09/02/22 Christiane Rodríguez MD 420 [facility] 396 [place], [place] 442905 Otolaryngology 11/12/22 Luis A Escobedo MD [address] [place] [address] 723035 Assigned Surgical Provider 11/01/22 11/28/22 Chely Fernandez PA-C 909 [place], [place] 250935 Assigned Surgical Provider 11/29/22 02/06/23 Jing Cadena APRN REVENUE INSPECTOR 420 [facility] 450 [place] [address] Clinical Nurse Specialist Anesthesiology 01/15/23 Radha Lopez, [facility] [address] [place] [address] 872545 Pharmacist Pharmacist 01/16/23 Luis A Escobedo MD 420 [facility] 195 [place], [place] 521495 Assigned Surgical Provider 02/07/23 04/15/23 Geri Loza PA-C [address] [place] [address] 515475 Assigned Surgical Provider 04/16/23 Raina Patterson, GINA PROFESSOR OF PATHOLOGY [address] [place] 881805 Nurse Practitioner Cardiovascular Disease 05/11/23 documented as of this encounter
--- OUTSIDE RECORDS SUMMARY | 2024-01-11 23:40 | XMS_ITS | Encounter Summary ---
Author Organization [place] Address [address] [place] [address] Care Team Providers Care Track Subway Repair Supervisor Name Role Phone Roderick Morelos MD Unavailable [phone] Magno Wood MD Unavailable [phone] Sophie Ocasio Unavailable [phone] Henny Rosales CRIMINAL JUSTICE DEPARTMENT CHAIR EXECUTIVE DIRECTOR CONTRACT SHOP Unavailable +[phone] [facility] Primary Care Pr ovider Sharee Oliva RD Unavailable [phone] Kaykay Duarte SAGGER PREPARER Primary Care Provider [phone] Christiane Rodríguez MD Unavailable [phone] Luis A Escobedo MD Unavailable +[phone] Chely Fernandez PA-C Unavailable [phone] Jing Cadena CRIMINAL JUSTICE DEPARTMENT CHAIR REAL ESTATE RENTAL AGENT Unavailable +[phone] Radha Lopez [facility] Unavailable [phone] Luis A Escobedo MD Unavailable [phone] Geri Loza PAEddaC Unavailable [phone] Raina Patterson CRIMINAL JUSTICE DEPARTMENT CHAIR EXECUTIVE DIRECTOR CONTRACT SHOP Unavailable +[phone] Encounter Details Date Type Department Care Team (Late st Contact Info) Description 09/02/2022 [facility] Medical Advice [facility] Weight Management Clinic [address] 4th [place] [address] Geri Loza PA-C 909 [place], [place] 329875 Social History Tobacco Use Types Packs/Day Years [...] on filedocumented in this encounter Care Teams Track Subway Repair Supervisor Relationship Specialty Start [place], [place] [address] [place] [address] PCP - General 08/19/22 10/14/22 Kaykay Duarte NP [address] [place] [address] [place] 916417 PCP - General 10/15/22 Roderick Morelos MD [address] [place], [place] 314035 Cardiovascular Disease 02/03/22 Magno Wood MD [address] [place] [address] 396 [place], [place] [phone] Otolaryngology 02/21/22 Sophie Ocasio AuD [address] [place] [address] 904085 Sr. Strategic Sourcing Manager Audiology 02/21/22 Henny Rosales APRN EXECUTIVE DIRECTOR CONTRACT SHOP [address] [place] [address] Assigned Heart and Vascular Provider 08/09/[address] [place] [address] Registered Dietitian Dietitian, Registered 09/02/22 Christiane Rodríguez MD [address] [place] [address] 396 [place] [address] Otolaryngology 11/12/22 Luis A Escobedo MD [address] [place] [address] Assigned Surgical Provider 11/01/22 11/28/22 Chely Fernandez PA-C [address] [place] [address] 699455 Assigned Surgical Provider 11/29/22 02/06/23 Jing Cadena APRN REAL ESTATE RENTAL AGENT [address] [place] [address] 450 [place] [address] Clinical Nurse Specialist Anesthesiology 01/15/23 Radha Lopez, [facility] [address] [place] [address] Pharmacist Pharmacist 01/16/23 Luis A Escobedo MD 420 [facility] 195 [place], [place] 141355 Assigned Surgical Provider 02/07/23 04/15/23 Geri Loza PA-C 909 [place], [place] 301435 Assigned Surgical Provider 04/16/23 Raina Patterson APRN EXECUTIVE DIRECTOR CONTRACT SHOP [address] [place], [place] 975065 Nurse Practitioner Cardiovascular Disease 05/11/23 documented as of this encounter
--- OUTSIDE RECORDS SUMMARY | 2024-01-11 23:40 | XMS_ITS | Encounter Summary ---
Author Organization [facility] Address [address] [place] [address]99 Care Team Providers Care Coil Maker Name Role Phone Roderick Morelos MD Unavailable [phone] Magno Wood MD Unavailable [phone] Sophie Ocasio Unavailable [phone] Henny Rosales DIAMOND BROKER AERIAL SURVEY TECHNICIAN Unavailable +[phone] [facility] Primary Care Pr ovider Sharee Oliva RD Unavailable [phone] Kaykay Duarte DENTURE PROCESSOR Primary Care Provider [phone] Christiane Rodríguez MD Unavailable +[phone] Luis A Escobedo MD Unavailable +[phone] Chely Fernandez PA-C Unavailable +[phone] Jing Cadena DIAMOND BROKER GROUND OPERATIONS SUPERVISOR Unavailable +[phone] Radha Lopez [facility] Unavailable +- [phone] Luis A Escobedo MD Unavailable +[phone] Geri Loza PAEddaC Unavailable +[phone] Raina Patterson DIAMOND BROKER AERIAL SURVEY TECHNICIAN Unavailable +[phone] Encounter Details Date Type Department Care Team (Late st Contact Info) Description 09/02/2022 [facility] [address] [place] [address] Kang Griffiths Social History Tobacco [...] on filedocumented in this encounter Care Teams Coil Maker Relationship Specialty Start [place] [address] [place] [address] PCP - General 08/19/22 10/14/22 Kaykay Duarte NP [address] [place] [address] [place] [address] PCP - General 10/15/22 Roderick Morelos MD [address] [place], [place] 47[address] Cardiovascular Disease 02/03/22 Magno Wood MD [address] [place] [address] 396 [place], [place] 774635 Otolaryngology 02/21/22 Sophie Ocasio, AuD [address] [place] [address] Interactive Digital Media Specialist Audiology 02/21/22 Henny Rosales, DIAMOND BROKER AERIAL SURVEY TECHNICIAN [address] [place] [address] Assigned Heart and Vascular Provider 08/09/[address] [place] [address] [phone] Registered Dietitian Dietitian, Registered 09/02/22 Christiane Rodríguez MD [address] [place] [address] 396 [place], [place] 049265 Otolaryngology 11/12/22 Luis A Escobedo MD [address] [place] [address] 502835 Assigned Surgical Provider 11/01/22 11/28/22 Chely Fernandez PA-C [address] [place] [address] 344975 Assigned Surgical Provider 11/29/22 02/06/23 Jing Cadena, DIAMOND BROKER GROUND OPERATIONS SUPERVISOR [address] [place] [address] 450 [place], [place] 620665 Clinical Nurse Specialist Anesthesiology 01/15/23 Radha Lopez [facility] [address] [place] [address] [phone] Pharmacist Pharmacist 01/16/23 Luis A Escobedo MD [address] [place] [address] 195 [place] [address] Assigned Surgical Provider 02/07/23 04/15/23 Geri Loza PA-C 9 [place] [address] Assigned Surgical Provider 04/16/23 Raina Patterson APRN [facility] [address] [facility] [address] [place] [address] Nurse Practitioner Cardiovascular Disease 05/11/23 documented as of this encounter
--- OUTSIDE RECORDS SUMMARY | 2024-01-11 23:40 | XMS_ITS | Encounter Summary ---
Author Organization [facility] Address [address] [place] [address] Care Team Providers Care Travel Services Professional Name Role Phone Roderick Morelos MD Unavailable [phone] Magno Wood MD Unavailable [phone] Sophie Ocasio Unavailable [phone] Henny Rosales INFORMATION TECHNOLOGY SECURITY ANALYST CYBER SECURITY SYSTEMS ENGINEER Unavailable +[phone] [facility] Primary Care Pr ovider Sharee Oliva RD Unavailable [phone] Kaykay Duarte OUTPATIENT PHYSICAL THERAPIST Primary Care Provider [phone] Christiane Rodríguez MD Unavailable +[phone] Luis A Escobedo MD Unavailable +[phone] Chely Fernandez PA-C Unavailable +[phone] Jing Cadena INFORMATION TECHNOLOGY SECURITY ANALYST WAREHOUSE AND RECEIVING SUPERVISOR Unavailable +[phone] Radha Lopez [facility] Unavailable +- [phone] Luis A Escobedo MD Unavailable +[phone] Geri Loza PAEddaC Unavailable [phone] Raina Patterson INFORMATION TECHNOLOGY SECURITY ANALYST CYBER SECURITY SYSTEMS ENGINEER Unavailable +[phone] Encounter Details Date Type Department Care Team (Late st Contact Info) Description 09/09/2022 MyC Medical Advice [facility] [address] [place] [address] Tanya Larsen RN Social History [...] filedocumented in this encounter Care Teams Travel Services Professional Relationship Specialty Start Date End Date Clinic, [place] [address] [place] [address] PCP - General 08/19/22 10/14/22 Kaykay Duarte, OUTPATIENT PHYSICAL THERAPIST [address] [place] [address] [place] [address] PCP - General 10/15/22 Roderick Morelos MD [address] [place], [place] 153175 Cardiovascular Disease 02/03/22 Magno Wood MD [address] [place] [address] 396 [place], [place] 428645 Otolaryngology 02/21/22 Sophie Ocasio AuD [address] [place] [address] [phone] Cardiac Cath Lab Manager Audiology 02/21/22 Henny Rosales, INFORMATION TECHNOLOGY SECURITY ANALYST CYBER SECURITY SYSTEMS ENGINEER [address] [place] [address] [place] [address] Assigned Heart and Vascular Provider 08/09/[address] [place] [address] Registered Dietitian Dietitian, Registered 09/02/22 Christiane Rodríguez MD 420 [facility] 396 [place], [place] 500235 Otolaryngology 11/12/22 Luis A Escobedo MD [address] [place] [place] [address] 312395 Assigned Surgical Provider 11/01/22 11/28/22 Chely Fernandez PA-C [address] [place] [address] 255305 Assigned Surgical Provider 11/29/22 02/06/23 Jing Cadena, INFORMATION TECHNOLOGY SECURITY ANALYST WAREHOUSE AND RECEIVING SUPERVISOR [address] [place] [address] 450 [place], [place] 729825 Clinical Nurse Specialist Anesthesiology 01/15/23 Radha Lopez, [facility] [address] [place] [address] [phone] Pharmacist Pharmacist 01/16/23 Luis A Escobedo MD [address] [place] [address] 195 [place], [place] 070315 Assigned Surgical Provider 02/07/23 04/15/23 Geri Loza PA-C 909 [place] [address] Assigned Surgical Provider 04/16/23 Raina Patterson APRN CYBER SECURITY SYSTEMS ENGINEER [address] [place] [address] Nurse Practitioner Cardiovascular Disease 05/11/23 documented as of this encounter
--- OUTSIDE RECORDS SUMMARY | 2024-01-11 23:40 | XMS_ITS | Encounter Summary ---
Author Organization [facility] Address [address] [place] [address] Care Team Providers Care Grit Removal Operator Name Role Phone Roderick Morelos MD Unavailable [phone] Magno Wood MD Unavailable [phone] Sophie Ocasio Unavailable +[phone] Henny Rosales CANE FEEDER TILE SORTER Unavailable [phone] [facility] Primary Care Pr ovider Sharee Oliva RD Unavailable [phone] Kaykay Duarte GENERATOR WORKER Primary Care Provider [phone] Christiane Rodríguez MD Unavailable +[phone] Luis A Escobedo MD Unavailable +[phone] Chely Fernandez PA-C Unavailable +[phone] Jing Cadena CANE FEEDER WEIGHER BULKER Unavailable [phone] Radha Lopez [facility] Unavailable +- [phone] Luis A Escobedo MD Unavailable +[phone] Geri Loza PAEddaC Unavailable [phone] Raina Patterson CANE FEEDER TILE SORTER Unavailable +[phone] Encounter Details Date Type Department Care Team (Late st Contact Info) Description 09/02/2022 MyC Medical Advice [facility] [address] 4[address] [place] [address] Geri Loza PA-C 9[address] [place], [place] 471255 Social History Tobacco Use Types Packs/Day Years [...] on filedocumented in this encounter Care Teams Grit Removal Operator Relationship Specialty Start [place] [address] [place] [address] PCP - General 08/19/22 10/14/22 Kaykay Duarte NP [address] [place] [address] [place] 119157 PCP - General 10/15/22 Roderick Morelos MD [address] [place], [place] 457[address] Cardiovascular Disease 02/03/22 Magno Wood MD [address] [place] [address] 396 [place], [place] [phone] Otolaryngology 02/21/22 Sophie Ocasio AuD [address] [place] [address] 141595 Diet Consultant Audiology 02/21/22 Henny Rosales APRN TILE SORTER [address] [place] [address] Assigned Heart and Vascular Provider 08/09/[address] [place] [address] Registered Dietitian Dietitian, Registered 09/02/22 Christiane Rodríguez MD [address] [place] [address] 396 [place] [address] Otolaryngology 11/12/22 Luis A Escobedo MD [address] [place] [address] Assigned Surgical Provider 11/01/22 11/28/22 Chely Fernandez PA-C [address] [place] [address] 968645 Assigned Surgical Provider 11/29/22 02/06/23 Jing Cadena APRN WEIGHER BULKER [address] [place] [address] 450 [place] [address] Clinical Nurse Specialist Anesthesiology 01/15/23 Radha Lopez, [facility] [address] [place] [address] Pharmacist Pharmacist 01/16/23 Luis A Escobedo MD 420 [facility] 195 [place], [place] 284305 Assigned Surgical Provider 02/07/23 04/15/23 Geri Loza PA-C 9[address] [place], [place] 338525 Assigned Surgical Provider 04/16/23 Raina Patterson APRN TILE SORTER [address] [place], [place] 032155 Nurse Practitioner Cardiovascular Disease 05/11/23 documented as of this encounter
--- OUTSIDE RECORDS SUMMARY | 2024-01-11 23:41 | XMS_ITS | Encounter Summary ---
Author Organization [facility] Address [address], [place] [address] Care Team Providers Care Striper Name Role Phone Kaykay Duarte APRN, LEAH Primary Care Provid er Encounter Details Date Type Department Care Team (Late st Contact Info) Description 12/18/2023 Notes/Orders Centralized Outreach [address] [place] [id number] [place] [phone] Mikayla Sweeney MD [address] [place] [address] Type 2 diabetes mellitus without [...] ([facility]) documented in this encounter Care Teams Striper Relationship Specialty Start Date End Date Kaykay Duarte, GINA, BIOINFORMATICS ANALYST [address] [place] [address] PCP - General Nurse Practitioner 10/25/21 documented as of this encounter
--- OUTSIDE RECORDS SUMMARY | 2024-01-11 23:41 | XMS_ITS | Encounter Summary ---
Author Organization [facility] Address [address] [place] [address] Care Team Providers Care Management Lead Name Role Phone Edda Agudelo PA-C Primary Care Provider + [phone] Magno Wood MD Unavailable [phone] [place] J[facility] [place] Primary Care Provider Unavailable Parth Ellis MD Unavailable +[phone] Tati Ayala MD Unavailable [phone] Khris Butt MD Unavailable +[phone] MorelosRoderick nunes MD Unavailable [phone] Roderick Morelos MD Unavailable [phone] Magno Wood MD Unavailable [phone] Sophie Ocasio Unavailable [phone] Parth Ellis MD Unavailable +[phone] MorelosRoderick nunes MD Unavailable [phone] Henny Rosales APRN DESIZING MACHINE OPERATOR HEAD END Unavailable [phone] [facility] Primary Care Pr ovider Sharee Oliva RD Unavailable [phone] Kaykay Duarte STOKER INSTALLATION MECHANIC Primary Care Provider [phone] Christiane Rodríguez MD Unavailable +[phone] Luis A Escobedo MD Unavailable + [phone] Chely Fernandez PA-C Unavailable +[phone] Cadena Jing Susie FUENTES ASPHALT ROLLER PERSON Unavailable + [phone] Radha Lopez [facility] Unavailable +[phone] Luis A Escobedo MD Unavailable +[phone] Geri Loza PA-C Unavailable +[phone] Raina Patterson GINA DESIZING MACHINE OPERATOR HEAD END Unavailable +[phone] Encounter Details Date Type Department Care Team (Late st Contact Info) Description 04/20/2009 Office Visit-[facility] Heart [address] [place] [phone] Lauri Canada APRN CNP NO INFO AVAILABLE [...] Referring Physician: LUIS A WORRELL Referring Clinic: [facility] CURRENT DIAGNOSES 1. - Hypercholesterolemia, 272.0 2. [...] Half-Brother - [place]; Sister 1 - CAD; CARDIAC RISK FACTORS [...] with and children; Place of - [place]; Hours Worked - 30 hours per week; [...] 03/19/2020 03/19/2020 03/19/2020 6:22 PM DIRECTOR OF SPECIAL SERVICES COVID-19 03/19/2020 03/19/2020 04/09/2020 11:3 9 PM DIRECTOR OF SPECIAL SERVICES Rule Out COVID-19 06/19/2021 06/19/2021 06/19/2021 1:37 AM CDT Rule Out COVID-19 10/29/2021 10/29/2021 10/29/2021 1:07 AM CDT documented as of this encounter Care Teams Management Lead Relationship Specialty Start Date End Date Edda Agudelo PA-C [facility] [address] [address] PCP - General 05/04/12 10/11/19 [facility] [place] [address] [address] PCP - General Family Practice 10/12/19 08/18/22 [facility] [address] [place] [address] PCP - General 08/19/22 10/14/22 [place] [address] [place] [address] PCP - General 10/15/22 Magno Wood MD [address] [address] Otolaryngology 05/29/15 08/02/17 Parth Ellis MD [address] [place] [address] Assigned Heart and Vascular Provider 01/13/20 12/13/21 Tati Ayala MD [address] [place] [address] Assigned Endocrinology Provider 01/13/20 12/29/20 Khris Butt MD [address] [place] [place], [place] 488[address] Assigned Heart and Vascular Provider 12/14/21 02/14/22 Roderick Morelos MD [address] [place] 459315 MD Cardiovascular Disease 02/03/22 Roderick Morelos MD [address] [place] 874695 Assigned Heart and Vascular Provider 02/15/22 07/18/22 Magno Wood MD [address] [place] [address] 396 [place], [place] 0[address]205 Otolaryngology 02/21/22 Sophie Ocasio AuD 909 [place], [place] 267775 Ultra Sound Technician Audiology 02/21/22 Parth Ellis MD [address] [place] 371335 Assigned Heart and Vascular Provider 07/19/22 07/25/22 Roderick Morelos MD [address] [place] [address] Assigned Heart and Vascular Provider 07/26/22 08/08/22 Henny Rosales, RIBBON BLOCKMAKER DESIZING MACHINE OPERATOR HEAD END [address] [place] [address] Assigned Heart and Vascular Provider 08/09/[address] [place] [address] 412865 Registered Dietitian Dietitian, Registered 09/02/22 Christiane Rodríguez MD [address] [place] [address] 396 [place] [address] Otolaryngology 11/12/22 Luis A Escobedo MD [address] [place] [address] [phone] Assigned Surgical Provider 11/01/22 11/28/22 Chely Fernandez PA-C [address] [place] [address] Assigned Surgical Provider 11/29/22 02/06/23 Jing Cadena, RIBBON BLOCKMAKER ASPHALT ROLLER PERSON [address] [place] [address] 450 [place], [place] 006415 Clinical Nurse Specialist Anesthesiology 01/15/23 Radha Lopez [facility] [address] [place] [address] [phone] Pharmacist Pharmacist 01/16/23 Luis A Escobedo MD [address] [place] [address] 195 [place], [place] 018495 Assigned Surgical Provider 02/07/23 04/15/23 Geri Loza PA-C 909 [place] [address] Assigned Surgical Provider 04/16/23 Raina Patterson APRN CNP [address] [email or web address] [address] [place] [address] Nurse Practitioner Cardiovascular Disease 05/11/23 documented as of this encounter
--- OUTSIDE RECORDS SUMMARY | 2024-01-11 23:41 | XMS_ITS | Encounter Summary ---
Author Organization [facility] Address [address] [place] [address] Care Team Providers Care Racebook Writer Name Role Phone Edda Agudelo PA-C Primary Care Provider + [phone] Magno Wood MD Unavailable [phone] [place] J[place]anna [place] Primary Care Provider Unavailable Parth Ellis MD Unavailable +[phone] Tati Ayala MD Unavailable [phone] Khris Butt MD Unavailable +[phone] MorelosRoderick nunes MD Unavailable [phone] Roderick Morelos MD Unavailable [phone] Magno Wood MD Unavailable [phone] Sophie Ocasio Unavailable +[phone] Parth Ellis MD Unavailable +[phone] MorelosRoderick nunes MD Unavailable [phone] Henny Rosales APRN VARNISH COOKER Unavailable [phone] [facility] Primary Care Pr ovider Sharee Oliva RD Unavailable [phone] Kaykay Duarte CRUCIBLE FURNACE TENDER Primary Care Provider [phone] Christiane Rodríguez MD Unavailable +[phone] Luis A Escobedo MD Unavailable + [phone] hCely Fernandez PA-C Unavailable +[phone] Jing Cadena APRN WHEEL AND AXLE INSPECTOR Unavailable + [phone] Radha Lopez [facility] Unavailable +[phone] Luis A Escobedo MD Unavailable +[phone] Geri Loza PA-C Unavailable [phone] Yesenia Raina FUENTES VARNISH COOKER Unavailable +[phone] Encounter Details Date Type Department Care Team (Late st Contact Info) Description 01/25/2004 Office Visit-[facility] Heart [place] 2[address]500 [place] [address] Unknown, DoctorMD Social History Tobacco [...] BOY WATSON Referring Clinic: [facility] CURRENT [...] Mother - Age 34, cancer-breast; Half-Brother - [place]; Sister 1 - CAD; SOCIAL HISTORY Alcohol [...] Out COVID-19 03/19/2020 03/19/2020 03/19/2020 6:22 PM HIGH DENSITY PRESS OPERATOR COVID-19 03/19/2020 03/19/2020 04/09/2020 11:3 9 PM HIGH DENSITY PRESS OPERATOR Rule Out COVID-19 06/19/2021 06/19/2021 06/19/2021 1:37 AM CDT Rule Out COVID-19 10/29/2021 10/29/2021 10/29/2021 1:07 AM CDT documented as of this encounter Care Teams Racebook Writer Relationship Specialty Start Date End Date Edda Agudelo PA-C [facility] [address] [place] 448408 PCP - General 05/04/12 10/11/19 Ernestina Martini 420 [facility] 396 [place] [address] PCP - General Family Practice 10/12/19 08/18/22 [place] [address] [facility] [place] [address] PCP - General 08/19/22 10/14/22 [place] [address] [place] [address] PCP - General 10/15/22 Magno Wood MD 420 [facility] 396 [place], [place] 131005 Otolaryngology 05/29/15 08/02/17 Parth Ellis MD [address] [place] 730905 Assigned Heart and Vascular Provider 01/13/20 12/13/21 Tati Ayala MD [address] [place], [place] 325850 Assigned Endocrinology Provider 01/13/20 12/29/20 Khris Butt MD [address] [place] [address] [place] 763655 Assigned Heart and Vascular Provider 12/14/21 02/14/22 Roderick Morelos MD [address] [place] 957175 Cardiovascular Disease 02/03/22 Roderick Morelos MD [address] [place] [address] Assigned Heart and Vascular Provider 02/15/22 07/18/22 Magno Wood MD [address] 897885 Otolaryngology 02/21/22 Sophie Ocasio AuD [address] [place] [address] 766765 Mortgage Loan Coordinator Audiology 02/21/22 Parth Ellis MD [address] [place], [place] 873875 Assigned Heart and Vascular Provider 07/19/22 07/25/22 Roderick Morelos MD [address] [place], [place] 656335 Assigned Heart and Vascular Provider 07/26/22 08/08/22 Henny Rosales APRN VARNISH COOKER [address] [place] [address] Assigned Heart and Vascular Provider 08/09/[address] [place] [address] 333885 Registered Dietitian Dietitian, Registered 09/02/22 Christiane Rodríguez MD [address] [place] [address] 350325 Otolaryngology 11/12/22 Luis A Escobedo MD [address] [place] [address] 993305 Assigned Surgical Provider 11/01/22 11/28/22 Chely Fernandez PA-C 9 [place], [place] 434945 Assigned Surgical Provider 11/29/22 02/06/23 Jing Cadena APRN WHEEL AND AXLE INSPECTOR 420 [facility] 450 [place], [place] 750035 Clinical Nurse Specialist Anesthesiology 01/15/23 Radha Lopez, [facility] [address] [place] [address] 075995 Pharmacist Pharmacist 01/16/23 Luis A Escobedo MD 420 [facility] 195 [place], [place] 769935 Assigned Surgical Provider 02/07/23 04/15/23 Geri Loza PA-C [address] [place] [address] 790175 Assigned Surgical Provider 04/16/23 Raina Patterson APRN VARNISH COOKER [address] [facility] [address] [place], [place] 949765 Nurse Practitioner Cardiovascular Disease 05/11/23 documented as of this encounter
--- OUTSIDE RECORDS SUMMARY | 2024-01-11 23:41 | XMS_ITS | Encounter Summary ---
Author Organization [place] Address [address] [place] [address] Care Team Providers Care Ship Scraper Name Role Phone Edda Agudelo PA-C Primary Care Provider + [phone] Magno Wood MD Unavailable +[phone] [place] Jovanna Union Primary Care Provider Unavailable Parth Ellis MD Unavailable +[phone] Tati Ayala MD Unavailable +[phone] Khris Butt MD Unavailable +[phone] MorelosRoderick nunes MD Unavailable +[phone] Roderick Morelos MD Unavailable +[phone] Magno Wood MD Unavailable +[phone] Sophie Ocasio Unavailable +[phone] Parth Ellis MD Unavailable +[phone] MorelosRoderick nunes MD Unavailable +[phone] Henny Rosales APRN PACKAGING DESIGNER Unavailable +[phone] [facility] Primary Care Pr ovider Sharee Oliva RD Unavailable +[phone] Kaykay Duarte METAL BONDER Primary Care Provider [phone] Christiane Rodríguez MD Unavailable +[phone] Luis A Escobedo MD Unavailable + [phone] Chely Fernandez PA-C Unavailable +[phone] Cadena Jing Susie FUENTES LOAN OPERATIONS SPECIALIST Unavailable + [phone] Radha Lopez [facility] Unavailable +[phone] Luis A Escobedo MD Unavailable +[phone] Geri Loza PA-C Unavailable +[phone] Raina Patterson GINA PACKAGING DESIGNER Unavailable +[phone] Encounter Details Date Type Department Care Team (Late st Contact Info) Description 06/13/2009 Office Visit-[facility] Heart [address] [place] [phone] Lauri Canada APRN CNP NO INFO AVAILABLE [...] Referring Physician: LUIS A WORRELL Referring Clinic: [facility] CURRENT DIAGNOSES 1. 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 On Crestor 20 mg a day (which [...] Reji Li MD 3 months-MUST BE ANDRE-NOT METAL BONDER 2. Lipid profile/ALT 3 months Lauri Canada, N.P. documented in this encounter Plan of Treatment Not on file documented as of this encounter Visit Diagnoses Not on filedocumented in this encounter Additional Health Concerns Infection Onset Date Last Indicated Resolved Time Rule Out COVID-19 03/19/2020 03/19/2020 03/19/2020 6:22 PM SHIPWRIGHT SUPERVISOR COVID-19 03/19/2020 03/19/202004/09/2020 11:3 9 PM SHIPWRIGHT SUPERVISOR Rule Out COVID-19 06/19/2021 06/19/2021 06/19/2021 1:37 AM CDT Rule Out COVID-19 10/29/2021 10/29/2021 10/29/2021 1:07 AM CDT documented as of this encounter Care Teams Ship Scraper Relationship Specialty Start Date End Date Edda Agudelo PA-C [facility] [address] [place] [address] PCP - General 05/04/12 10/11/19 Ernestina Martini [address] [place] [address] [facility] [address] [place] [address] PCP - General Family Practice 10/12/19 08/18[facility]22 [facility] [address] [place] [address] PCP - General 08/19/22 10/14/22 Kaykay Duarte, METAL BONDER [address] [place] [address] PCP - General 10/15/22 Magno Wood MD [address] [address] Otolaryngology 05/29/15 08/02/17 Parth Ellis MD [address] [place] [address] Assigned Heart and Vascular Provider 01/13/20 12/13/21 Tati Ayala MD [address] [place] [address] Assigned Endocrinology Provider 01/13/20 12/29/20 Khris Butt MD [address] [place] [address] Assigned Heart and Vascular Provider 12/14/21 02/14/22 Roderick Morelos MD [address] [place] [address] Cardiovascular Disease 02/03/22 Roderick Morelos MD [address] [place] 934155 Assigned Heart and Vascular Provider 02/15/22 07/18/22 Magno Wood MD [address] [place] [address] 499745 Otolaryngology 02/21/22 Sophie Ocasio AuD [address] [place] [address] 254615 Trouble Lineman Audiology 02/21/22 Parth Ellis MD [address] [place] [address] Assigned Heart and Vascular Provider 07/19/22 07/25/22 Roderick Morelos MD [address] [place] [address] Assigned Heart and Vascular Provider 07/26/22 08/08/22 Henny Rosales APRN PACKAGING DESIGNER [address] [place] [phone] Assigned Heart and Vascular Provider 08/09/[address] [place] [address] 140475 Registered Dietitian Dietitian, Registered 09/02/22 Christiane Rodríguez MD [address] [place] [address] 396 [place], [place] 535215 Otolaryngology 11/12/22 Luis A Escobedo MD [address] [place] [address] 391335 Assigned Surgical Provider 11/01/22 11/28/22 Chely Fernandez PA-C [address] [place] [address] 650795 Assigned Surgical Provider 11/29/22 02/06/23 Jing Cadena, NETWORK FIREWALL ENGINEER LOAN OPERATIONS SPECIALIST [address] [place] [address] [address] [place], [place] 738835 Clinical Nurse Specialist Anesthesiology 01/15/23 Radha Lopez [facility] [address] [place] [address] 926055 Pharmacist Pharmacist 01/16/23 Luis A Escobedo MD [address] [place] [address] 020895 Assigned Surgical Provider 02/07/23 04/15/23 Geri Loza PA-C [address] [place] [address] 778625 Assigned Surgical Provider 04/16/23 Raina Patterson APRN [facility] [address] [place] [address] Nurse Practitioner Cardiovascular Disease 05/11/23 documented as of this encounter
--- OUTSIDE RECORDS SUMMARY | 2024-01-11 23:41 | XMS_ITS | Encounter Summary ---
Author Organization [facility] Address [address] [place] [address] Care Team Providers Care Consultant Name Role Phone Edda Agudelo PA-C Primary Care Provider + [phone] Magno Wood MD Unavailable [phone] [place] Jovanna [place] Primary Care Provider Unavailable Parth Ellis MD Unavailable +[phone] Tati Ayala MD Unavailable +[phone] Khris Butt MD Unavailable +[phone] MorelosRoderick nunes MD Unavailable +[phone] Roderick Morelos MD Unavailable +[phone] Magno Wood MD Unavailable +[phone] Sophie Ocasio Unavailable +[phone] Parth Ellis MD Unavailable +[phone] MorelosRoderick nunes MD Unavailable +[phone] Henny Rosales APRN TEARER PRESS CLIPPING Unavailable +[phone] [facility] Primary [facility] Pr ovider Sharee Oliva RD Unavailable +[phone] Kaykay Duarte FARM DEMONSTRATOR Primary Care Provider [phone] Christiane Rodríguez MD Unavailable +[phone] Luis A Escobedo MD Unavailable + [phone] Chely Fernandez PA-C Unavailable +[phone] CadenaJing APRN DRAFTER DIRECTIONAL SURVEY Unavailable + [phone] Radha Lopez [facility] Unavailable [phone] Luis A Escobedo MD Unavailable +[phone] Geri Loza PA-C Unavailable +[phone] Raina Patterson GINA TEARER PRESS CLIPPING Unavailable +[phone] Encounter Details Date Type Department Care Team (Late st Contact Info) Description 12/06/2004 Office Visit-[facility] [address] [place] [address] Unknown, DoctorMD Social History Tobacco [...] Physician: BOY WATSON Referring Clinic: [facility] CURRENT DIAGNOSES 1. - Hypercholesterolemia, [...] and labs HISTORY OF PRESENT ILLNESS </B><FONT FACE=Health Information Systems Technician New> Jimbo Owens is a pleasant, 34-year-old [...] cholesterol 194, ratio 5.4, ALT 14. Her [place] 10-year risk score is 1%. According to that, her LDL cholesterol goal should be less than 160, although given her risk factors and family history, she may certainly benefit chcf from an LDL cholesterol between 100-120. Jimbo, [...] mcg/inh and Zocor 20 mg IMPRESSIONS/PLAN </B><FONT FACE=Health Information Systems Technician New>1) Family history of coronary artery disease [...] Out COVID-19 03/19/2020 03/19/2020 03/19/2020 6:22 PM AROMATHERAPIST COVID-19 03/19/2020 03/19/2020 04/09/2020 11:3 9 PM AROMATHERAPIST Rule Out COVID-19 06/19/2021 06/19/2021 06/19/2021 1:37 AM CDT Rule Out COVID-19 10/29/2021 10/29/2021 10/29/2021 1:07 AM CDT documented as of this encounter Care Teams Consultant Relationship Specialty Start Date End Date Edda Agudelo PA-C [facility] [address] [address] PCP - General 05/04/12 10/11/19 Ernestina Martini [address] [place] [address] [address] PCP - General Family Practice 10/12/19 08/18/22 [facility] Jovanna [place] [address] [place] [address] PCP - General 08/19/22 10/14/22 Kaykay Duarte, FARM DEMONSTRATOR [address] [place], [place] 737137 PCP - General 10/15/22 Magno Wood MD [address] 944275 Otolaryngology 05/29/15 08/02/17 Parth Ellis MD [address] [place] 348795 Assigned Heart and Vascular Provider 01/13/20 12/13/21 Tati Ayala MD [address] [place], [place] 348720 Assigned Endocrinology Provider 01/13/20 12/29/20 Khris Butt MD [address] [facility] [address] [place] 974255 Assigned Heart and Vascular Provider 12/14/21 02/14/22 Roderick Morelos MD [address] [place] [address] MD Cardiovascular Disease 02/03/22 Roderick Morelos MD [address] [place] 940025 Assigned Heart and Vascular Provider 02/15/22 07/18/22 Magno Wood MD [address] [place] [address] 396 [place], [place] 445765 Otolaryngology 02/21/22 Sophie Ocasio AuD 9[address] [place], [place] 080615 Milk Hauler Audiology 02/21/22 Parth Ellis MD [address] [place] 091565 Assigned Heart and Vascular Provider 07/19/22 07/25/22 Roderick Morelos MD [address] [place] [address] Assigned Heart and Vascular Provider 07/26/22 08/08/22 Henny Rosales APRN TEARER PRESS CLIPPING [address] [place] [phone] Assigned Heart and Vascular Provider 08/09/[address] [place] [address] 602035 Registered Dietitian Dietitian, Registered 09/02/22 Christiane Rodríguez MD [address] [place] [address] 396 [place], [place] 671625 Otolaryngology 11/12/22 Luis A Escobedo MD [address] [place] [address] 785855 Assigned Surgical Provider 11/01/22 11/28/22 Chely Fernandez PA-C [address] [place] [address] 666535 Assigned Surgical Provider 11/29/22 02/06/23 Jing Cadena APRN DRAFTER DIRECTIONAL SURVEY [address] [place] [address] 450 [place], [place] 148975 Clinical Nurse Specialist Anesthesiology 01/15/23 Radha Lopez, [facility] [address] [place] [address] Pharmacist Pharmacist 01/16/23 Luis A Escobedo MD [address] [place] [address] 195 [place] [address] Assigned Surgical Provider 02/07/23 04/15/23 Geri Loza PA-C [address] [place] [address] Assigned Surgical Provider 04/16/23 Raina Patterson APRN TEARER PRESS CLIPPING [address] [place] [address] Nurse Practitioner Cardiovascular Disease 05/11/23 documented as of this encounter
--- OUTSIDE RECORDS SUMMARY | 2024-01-11 23:41 | XMS_ITS | Encounter Summary ---
Author Organization [place] Address [address] [place] [address] Care Team Providers Care Chassis Inspector Name Role Phone Barrington Agudelo PA-C Primary Care Provider + [phone] Magno Wood MD Unavailable [phone] [place] Jovanna [place] Primary Care Provider Unavailable Parth Ellis MD Unavailable +[phone] Tati Ayala MD Unavailable +[phone] Khris Butt MD Unavailable +[phone] MorelosRoderick nunes MD Unavailable +[phone] Roderick Morelos MD Unavailable +[phone] Magno Wood MD Unavailable [phone] Sophie Ocasio Unavailable +[phone] Parth Ellis MD Unavailable +[phone] MorelosRoderick nunes MD Unavailable +[phone] Henny Rosales APRN BOTANY TEACHER Unavailable +[phone] [facility] Primary Care Pr ovider Sharee Oliva RD Unavailable +[phone] Kaykay Duarte HOME IMPROVEMENT ADVISOR Primary Care Provider [phone] Christiane Rodríguez MD Unavailable +[phone] Luis A Escobedo MD Unavailable + [phone] Chely Fernandez PA-C Unavailable +[phone] Cadena Jing Susie FUENTES DESIGN STUDIO CONSULTANT Unavailable + [phone] Radha Lopez [facility] Unavailable +[phone] Luis A Escobedo MD Unavailable +[phone] Geri Loza PA-C Unavailable +[phone] Raina Patterson GINA BOTANY TEACHER Unavailable +[phone] Encounter Details Date Type Department Care Team (Late st Contact Info) Description 08/21/2011 Office Visit-[facility] Heart [address] [place] [phone] Dane Rosa MD Social History Tobacco Use [...] lives with and children; Place of - [place]; Hours Worked - 30 hours per week; [...] Out COVID-19 03/19/2020 03/19/2020 03/19/2020 6:22 PM MAINTENANCE REPAIRMAN COVID-19 03/19/2020 03/19/2020 04/09/2020 11:3 9 PM MAINTENANCE REPAIRMAN Rule Out COVID-19 06/19/2021 06/19/2021 06/19/2021 1:37 AM CDT Rule Out COVID-19 10/29/2021 10/29/2021 10/29/2021 1:07 AM CDT documented as of this encounter Care Teams Chassis Inspector Relationship Specialty Start Date End Date Barrington Agudelo PA-C [facility] [address] 177158 PCP - General 05/04/12 10/11/19 [place] Martini 420 [facility] 396 [place] [address] PCP - General Family Practice 10/12/19 08/18/22 [facility] [address] [facility] [address] PCP - General 08/19/22 10/14/22 [place] [address] [place] [address] PCP - General 10/15/22 Magno Wood MD 420 [facility] 396 [place], [place] 079835 Otolaryngology 05/29/15 08/02/17 Parth Ellis MD [address] [place] 443975 Assigned Heart and Vascular Provider 01/13/20 12/13/21 Tati Ayala MD [address] [facility] 200 [place], [place] [address]40 Assigned Endocrinology Provider 01/13/20 12/29/20 Khris Butt MD [address] [place] 493975 Assigned Heart and Vascular Provider 12/14/21 02/14/22 Roderick Morelos MD [address] [place] 842465 Cardiovascular Disease 02/03/22 Roderick Morelos MD [address] [place] 755535 Assigned Heart and Vascular Provider 02/15/22 07/18/22 Magno Wood MD [address] [place] [address] 702675 Otolaryngology 02/21/22 Sophie Ocasio AuD [address] [place] [address] 090135 Hair Preparer Audiology 02/21/22 Parth Ellis MD [address] [place], [place] 575585 Assigned Heart and Vascular Provider 07/19/22 07/25/22 Roderick Morelos MD [address] [place], [place] 287425 Assigned Heart and Vascular Provider 07/26/22 08/08/22 Henny Rosales APRN BOTANY TEACHER [address] [place] [address] Assigned Heart and Vascular Provider 08/09/22 Sharee Oliva, ÁNGEL [address] [place] [address] Registered Dietitian Dietitian, Registered 09/02/22 Christiane Rodríguez MD [address] [place] [address] 284835 Otolaryngology 11/12/22 Luis A Escobedo MD [address] [place] [address] Assigned Surgical Provider 11/01/22 11/28/22 Chely Fernandez PA-C 909 [place] [address] Assigned Surgical Provider 11/29/22 02/06/23 Jing Cadena APRN DESIGN STUDIO CONSULTANT 420 [facility] 450 [place], [place] 985905 Clinical Nurse Specialist Anesthesiology 01/15/23 Radha Lopez [facility] [address] [place] [address] 629705 Pharmacist Pharmacist 01/16/23 Luis A Escobedo MD [address] [place] [address] 195 [place] [address] Assigned Surgical Provider 02/07/23 04/15/23 Geri Loza PA-C [address] [place] [address] Assigned Surgical Provider 04/16/23 Raina Patterson APRN BOTANY TEACHER [address] [facility] [address] [place] 422685 Nurse Practitioner Cardiovascular Disease 05/11/23 documented as of this encounter
--- OUTSIDE RECORDS SUMMARY | 2024-01-11 23:41 | XMS_ITS | Encounter Summary ---
Author Organization [place] Address [address] [place] [address] Care Team Providers Care Cargo Supervisor Name Role Phone Edda Agudelo PA-C Primary Care Provider + [phone] Magno Wood MD Unavailable [phone] [place] oJvanna Union Primary Care Provider Unavailable Parth Ellis MD Unavailable +[phone] Tati Ayala MD Unavailable +[phone] Khris Butt MD Unavailable +[phone] MorelosRoderick nunes MD Unavailable +[phone] Roderick Morelos MD Unavailable +[phone] Magno Wood MD Unavailable +[phone] Sophie Ocasio Unavailable +[phone] Parth Ellis MD Unavailable +[phone] MorelosRoderick nunes MD Unavailable +[phone] Henny Rosales APRN EPIC INTERFACE ANALYST Unavailable +[phone] [facility] Primary Care Pr ovider Sharee Oliva RD Unavailable [phone] Kaykay Duarte MANGLE TENDER CLOTH Primary Care Provider [phone] Christiane Rodríguez MD Unavailable +[phone] Luis A Escobedo MD Unavailable + [phone] Chely Fernandez PA-C Unavailable +[phone] Cadena Jing Susie FUENTES [facility] Unavailable + [phone] Radha Lopez [facility] Unavailable +[phone] Luis A Escobedo MD Unavailable +[phone] Geri Loza PA-C Unavailable +[phone] Yesenia Raina FUENTES [facility] Unavailable Encounter Details Date Type Department Care Team (Late st Contact Info) Description 02/08/2007 Office Visit-[facility] 6405 [facility] [address] [place] [address] Reji Li MD 6405 [facility] [address] [place] [address] Social History Tobacco Use Types [...] dose Vytorin. Her LDL goal should be bcohk504, and ideally below 100, with HDL above [...] valve 2. F/U with Imani Ott, MSN, EPIC INTERFACE ANALYST 3 months Reji Li M.D. documented in this encounter Plan of Treatment Not on file documented as of this encounter Visit Diagnoses Not on filedocumented in this encounter Additional Health Concerns Infection Onset Date Last Indicated Resolved Time Rule Out COVID-19 03/19/2020 03/19/2020 03/19/2020 6:22 PM PERSONAL CARE HOME ADMINISTRATOR COVID-19 03/19/2020 03/19/2020 04/09/2020 11:3 9 PM PERSONAL CARE HOME ADMINISTRATOR Rule Out COVID-19 06/19/2021 06/19/2021 06/19/2021 1:37 AM CDT Rule Out COVID-19 10/29/2021 10/29/2021 10/29/2021 1:07 AM CDT documented as of this encounter Care Teams Cargo Supervisor Relationship Specialty Start Date End Date Edda Agudelo PA-C [facility] [address] [place] [address] 953508 PCP - General 05/04/12 10/11/19 Ernestina Martini 420 [facility] 396 [place] [address] PCP - General Family Practice 10/12/19 08/18/22 [facility] [address] [place], [place] 25[address]337 PCP - General 08/19/22 10/14/22 Kaykay Duarte, MANGLE TENDER CLOTH [address] [place] [address] PCP - General 10/15/22 Magno Wood MD [address] [place] [address] [facility] 396 [place] [address] Otolaryngology 05/29/15 08/02/17 Parth Ellis MD [address] [place] [address] Assigned Heart and Vascular Provider 01/13/20 12/13/21 Tati Ayala MD [address] [facility] 200 [place], [place] 581570 Assigned Endocrinology Provider 01/13/20 12/29/20 Khris Butt MD [address] [place] [address] Assigned Heart and Vascular Provider 12/14/21 02/14/22 Roderick Morelos MD [address] [place] [address] Cardiovascular Disease 02/03/22 Roderick Morelos MD [address] [place] [address] Assigned Heart and Vascular Provider 02/15/22 07/18/22 Magno Wood MD [address] [place] [address] [facility] 396 [place] [address] Otolaryngology 02/21/22 Sophie Ocasio AuD 9 [place], [place] 803575 Hand Printed Circuit Board Assembler Audiology 02/21/22 Parth Ellis MD [address] [place], [place] 078305 Assigned Heart and Vascular Provider 07/19/22 07/25/22 Roderick Morelos MD [address] [place], [place] 335155 Assigned Heart and Vascular Provider 07/26/22 08/08/22 Henny Rosales APRN EPIC INTERFACE ANALYST [address] [place] [address] Assigned Heart and Vascular Provider 08/09/[address] [place] [address] [phone] Registered Dietitian Dietitian, Registered 09/02/22 Christiane Rodríguez MD [address] [place] [address] 396 [place], [place] 250775 Otolaryngology 11/12/22 Luis A Escobedo MD [address] [place] [address] 195 [place] [address] Assigned Surgical Provider 11/01/22 11/28/22 Chely Fernandez PA-C [address] [place] [address] 976595 Assigned Surgical Provider 11/29/22 02/06/23 Jing Cadena APRN PRESSURE CONTROLLER 420 [facility] 450 [place] [address] Clinical Nurse Specialist Anesthesiology 01/15/23 Radha Lopez [facility] [address] [place] [address] [phone] Pharmacist Pharmacist 01/16/23 Luis A Escobedo MD 420 [facility] 195 [place], [place] 310895 Assigned Surgical Provider 02/07/23 04/15/23 Geri Loza PA-C [address] [place] [address] 968235 Assigned Surgical Provider 04/16/23 Raina Patterson APRN EPIC INTERFACE ANALYST [address] [place], [place] 089305 Nurse Practitioner Cardiovascular Disease 05/11/23 documented as of this encounter
--- OUTSIDE RECORDS SUMMARY | 2024-01-11 23:41 | XMS_ITS | Encounter Summary ---
Author Organization [place] Address [address] [place] [address] Care Team Providers Care Freight Car Repairer Name Role Phone Edda Agudelo PA-C Primary Care Provider + [phone] Magno Wood MD Unavailable [phone] [place] Jovanna Irons Primary Care Provider Unavailable Parth Ellis MD Unavailable [phone] Tati Ayala MD Unavailable [phone] Khris Butt MD Unavailable [phone] MorelosRoderick nunes MD Unavailable [phone] Roderick Morelos MD Unavailable [phone] Magno Wood MD Unavailable [phone] Sophie Ocasio Unavailable [phone] Parth Ellis MD Unavailable [phone] MorelosRoderick nunes MD Unavailable Henny Rosales APRN SURGICAL SALES REPRESENTATIVE Unavailable [phone] [facility] Primary Care Pr ovider Sharee Oliva RD Unavailable [phone] Kaykay Duarte TITLE SEARCHER Primary Care Provider [phone] Christiane Rodríguez MD Unavailable [phone] Luis A Escobedo MD Unavailable + [phone] Chely Fernandez PA-C Unavailable [phone] Jing Cadena APRN METHODOLOGIST Unavailable + [phone] Radha Lopez Marte [facility] Unavailable [phone] Luis A Escobedo MD Unavailable + [phone] Geri Loza PA-C Unavailable [phone] Raina Patterson GINA SURGICAL SALES REPRESENTATIVE Unavailable [phone] Encounter Details Date Type Department Care Team (Late st Contact Info) Description 10/20/2001 Office Visit-[facility] [address] [place] [address] Unknown, DoctorMD Social History Tobacco [...] Date : 01/30/2004 Time : 3:21:53 PM Electronically signed by [facility], Emr Data Conversion at 08/05/2013 5:43 AM CDT documented in this encounter Plan of Treatment Not on file documented as of this encounter Visit Diagnoses Not on filedocumented in this encounter Additional Health Concerns Infection Onset Date Last Indicated Resolved Time Rule Out COVID-19 03/19/2020 03/19/2020 03/19/2020 6:22 PM CORPORATE TECHNICAL RECRUITER COVID-19 03/19/2020 03/19/2020 04/09/2020 11:3 9 PM CORPORATE TECHNICAL RECRUITER Rule Out COVID-19 06/19/2021 06/19/2021 06/19/2021 1:37 AM CDT Rule Out COVID-19 10/29/2021 10/29/2021 10/29/2021 1:07 AM CDT documented as of this encounter Care Teams Freight Car Repairer Relationship Specialty Start Date End Date Edda Agudelo PA-C [facility] [address] [address] PCP - General 05/04/12 10/11/19 Sheila Martiniville [address] [address] PCP - General Family Practice 10/12/19 08/18/22 [facility] [address] [place], [place] 6[address]387 PCP - General 08/19/22 10/14/22 [place] [address] [place], [place] [address] PCP - General 10/15/22 Magno Wood MD [address] 945495 Otolaryngology 05/29/15 08/02/17 Parth Ellis MD [address] [place] 232685 Assigned Heart and Vascular Provider 01/13/20 12/13/21 Tati Ayala MD [address] [place], [place] 7839[address] Assigned Endocrinology Provider 01/13/20 12/29/20 Khris Butt MD [address] [facility] [address] [place] [address] Assigned Heart and Vascular Provider 12/14/21 02/14/22 Roderick Morelos MD [address] [place] [address] Cardiovascular Disease 02/03/22 Roderick Morelos MD [address] [place] [address] Assigned Heart and Vascular Provider 02/15/22 07/18/22 Magno Wood MD [address] [place] [address] Otolaryngology 02/21/22 Sophie Ocasio AuD [address] [place] [place] [address] [id number] Credit Historian Audiology 02/21/22 Parth Ellis MD [address] [place] 432435 Assigned Heart and Vascular Provider 07/19/22 07/25/22 Roderick Morelos MD [address] [place] [address] Assigned Heart and Vascular Provider 07/26/22 08/08/22 Henny Rosales APRN SURGICAL SALES REPRESENTATIVE [address] [place] [phone] Assigned Heart and Vascular Provider 08/09/[address] [place], [place] [address] Registered Dietitian Dietitian, Registered 09/02/22 Christiane Rodríguez MD [address] [facility] [address] [place], [place] 8[address] Otolaryngology 11/12/22 Luis A Escobedo MD [address] [facility] [address] [place], [place] 4[address] Assigned Surgical Provider 11/01/22 11/28/22 Chely Fernandez PA-C [address] [place] [place] [address] 896855 Assigned Surgical Provider 11/29/22 02/06/23 Jing Cadena, SECOND HELPER METHODOLOGIST [address] [facility] [address] [place], [place] [address] Clinical Nurse Specialist Anesthesiology 01/15/23 Radha Lopez, [facility] [address] [place] [address] Pharmacist Pharmacist 01/16/23 Luis A Escobedo MD [address] [place] [address] [address] [place] [address] Assigned Surgical Provider 02/07/23 04/15/23 Geri Loza PA-C [address] [place] [address] Assigned Surgical Provider 04/16/23 Raina Patterson APRN SURGICAL SALES REPRESENTATIVE [address] [place] [address] Nurse Practitioner Cardiovascular Disease 05/11/23 documented as of this encounter
--- OUTSIDE RECORDS SUMMARY | 2024-01-11 23:41 | XMS_ITS | Clinical Summary ---
Author Organization [employer] Address [address] [place] [address] Care Team Providers Care Area Attendant Name Role Phone Kaykay Duarte APRN, LEAH Primary Care Provid er Source Comments You are receiving this document as you are listed as the primary care provider,follow-up provider, or the patient has been referred to you for consultation.This is in compliance with the Medicare and[facility] EHR Incentive Program,which states Providers who transition their patient to another setting of careor provider of care or refers their patient to another provider of care shouldprovide summary care record for each transition of care or referral. [employer] Allergies No known active allergies Medications Medication [...] use. 1 Each 3 02/20/2022 Active cyanocobalamin (QYRDUMEO00) 1000 MCG/ML injection Inject 1,000 mcg subcutaneously [...] (01/04/2021): Added automatically from request for surgery [id number] S/P laparoscopic sleeve gastrectomy 08/09/2020 Overview (08/09/2020): [...] 35 RDI 36 Lowest O2 Sat: 87% [facility] Cervical high risk HPV (human papillomavirus) te st positive 08/05/2017 Overview (06/01/2023): [facility] Review: History: 07/2017: NILM HPV+ (18) 08/2017: [...] Notes/Orders Centralized Outreach [address] [place] [address]I [place] [address] Mikayla Sweeney MD Type 2 diabetes mellitus without complication, without long-term current use of insulin (HRC) from Last 3 Months Immunizations Name Administration Dates Next Due Influenza IIV4 (Quadrivalent ) 0.5mL (83776) 02/08/2021,03/31/2019,04/14/2017 PCV20 ([id number]) 05/20/2023 PPSV23 (Pneumovax) 04/14/2017 Pfizer Monovalent 12+ [...] (265 lb 9.6 oz) 05/20/2023 2:19 PM MARKETING COMMUNICATIONS ASSISTANT Height 167.6 cm (5' 6) 09/11/2022 4:11 [...] this topic Medical Devices Implanted Type Area Director Talent Management Device Identifier Shelf Expiration Date Model / Serial / Lot Kit Leidy Burris Sys - [id number] Implanted:Qty: 1 on 02/19/2021 by Zoila Shaikh MBBS at [facility] DEVICE N/A: PELVIS [place] [employer] 12/05/2021 [id number] / 000 / [id number] Description:Polypropylene me sh- per [employer] Gyrus Virk Torp-05/20/2005 Implanted: 006 (Quantity not on file) ENT EAR [id number] / / [id number] Description:Devices that are made from non-metallic materials (i.e. Implants and Ventilation Tubes made from DAVIS, Plasti-pore, Silicone, Fluoroplastic) are inherently non-conducting and non-magnetic and pose no known hazards in all MR environments and therefore are considered MR Safe. - Per [facility] Procedures Procedure Name Priority Date/Time Associated Diagnosis Comments PAP TEST Routine 04/29/2023 9:58 AM MARKETING COMMUNICATIONS ASSISTANT Screening for cervical cancer MM MAMMOGRAM SCREENING BILAT W 3D SCOT W CAD Routine 04/02/2023 8:58 AM MARKETING COMMUNICATIONS ASSISTANT HGB A1C Routine 12/23/2022 11:40 AM CDT [...] Results * PAP Test (04/29/2023 9:58 AM MARKETING COMMUNICATIONS ASSISTANT) Case Report Pap ? Case: [id number] ? Authorizing Provider: ??Elizabeth Herndon APRN, ?Collected: ? 04/29/2023 0958 ? CNM ? Ordering Location: ? [facility] ? Received: ?04/29/2023 1008 ? Services-AS400 OPERATOR ? First Screen: ?Nault, Diana E, CT (ASCP) ? Specimen: ?Pap Test, Routine, Cervix/Endocervix ? 05/21/2023 1:19 PM MARKETING COMMUNICATIONS ASSISTANT [facility] Pap Specimen Adequacy Satisfactory for evaluation, endocervical/kerr sformation zone component present. 05/21/2023 1:19 PM MARKETING COMMUNICATIONS ASSISTANT [facility] Pap Interpretation (NILM) Negative for intraepithelial lesion or malignancy. 05/21/2023 1:19 PM MARKETING COMMUNICATIONS ASSISTANT [facility] Pap Disclaimer The Pap test is a screening test to aid in the detection of cervical and vaginal cancers and their precursor lesions. It is not a diagnostic procedure and should not be used as the sole means of detecting malignancy. Both false-positive and false-negative results may occur. 05/21/2023 1:19 PM MARKETING COMMUNICATIONS ASSISTANT [facility] Gross Description The specimen is received in SurePath fixative and properly labeled. 1 Pap-stained SurePath slide is prepared. 05/21/2023 1:19 PM MARKETING COMMUNICATIONS ASSISTANT [facility] Embedded Images 1:19 PM MARKETING COMMUNICATIONS ASSISTANT [facility] Other Specimen Type ENTIRE ENDOCERVIX / Unknown 04/29/2023 9:58 AM MARKETING COMMUNICATIONS ASSISTANT 04/29/2023 10:08 AM MARKETING COMMUNICATIONS ASSISTANT Comment:LMP: No LMP recorded . (Menstrual status: IUD). Elizabeth Herndon APRN, CNM LAB PATHOLOGY Performing Organization Address City/State/[facility] de Phone Number [facility] [address] * MM Mammogram Screening Bilat W 3D Scot W CAD (04/02/2023 8:58 AM MARKETING COMMUNICATIONS ASSISTANT) Anatomical Region Laterality Modality Breast Bilateral Mammography Impressions 04/02/2023 10:15 AM MARKETING COMMUNICATIONS ASSISTANT : ACR BI-RADS Category 1: Negative RECOMMENDATION: Follow Up Imaging in 12 months - Bilateral The provided family history indicates that the patient might be at a high lifetime risk of breast cancer. Consider a formal risk assessment if not previously performed. The results and recommendations of this examination will be communicated to the patient. Narrative 04/02/2023 10:15 AM MARKETING COMMUNICATIONS ASSISTANT MM MAMMOGRAM SCREENING BILAT W 3D SCOT W CAD performed on 04/02/23 Compared to: 02/04/2022 MM Mammogram Screening Bilat W 3D Soct W CAD, 01/30/2021 MM Mammogram Screening Bilat W 3D Scot W CAD, and 01/09/2020 MM Mammogram Screening Bilat W 3D Scot W CAD ?? FINDINGS: Bilateral screening mammogram was performed with the assistance of Computer-Aided Detection and breast tomosynthesis. The breasts have scattered areas of fibroglandular density. There is no radiographic evidence of malignancy. ?? Kaykay Duarte ARCADE ATTENDANT, ELIGIBILITY AND OCCUPANCY INTERVIEWER RAD CARLOS * (ABNORMAL) HgbA1c - Collect in Lab (12/23/2022 11:40 AM CDT) Hemoglobin A1C (Rapid) 6.4(H) <=5.6 % 12/23/2022 1:46 PM CDT [facility] Estimated Average Glucose (Calc) 137 < 117 mg/dL 12/23/2022 1:46 PM T [facility] Comment:Estimated average gl ucose (eAG) converts A1c into glucose units (mg/dL) and estimates average glucose over the past approximately 3 months. The eAG reference interval (<117 mg/dL) corresponds to an A1c of <5.7%. Blood Venipuncture / Unknown 12/23/2022 11:40 AM CDT 12/23/2022 11:43 AM CDT Narrative [facility] - 12/23/2022 1:46 PM CDT For [...] [facility] [address] [place] [address], [facility] [phone] * Endoscopy, colon, diagnostic (11/20/2022 7:03 AM [...] saturations were ? monitored continuously. The ? [id number] was introduced through ? the anus and [...] the initial medication ? administration until the metalworking specialist assists with ? initial maneuvers (biopsy / [...] Procedure Code(s): ? --- Professional --- ? 70817, Colonoscopy, flexible; ? diagnostic, including collection of ? specimen(s) by brushing or washing, ? when performed (separate procedure) ? 60006, Moderate sedation; each ? additional 15 minutes [...] (additional time may ? be reported with 35426, as ? appropriate) Diagnosis Code(s): ? --- Professional --- ? Z12.11, Encounter for screening for ? malignant neoplasm of colon ? K64.9, Unspecified hemorrhoids CPT copyright 2020 [employer]. All rights reserved. The codes documented in this report are preliminary and upon mems device scientist review may be revised to meet current [...] and oxygen saturations were monitored continuously. The [id number] was introduced through the anus and advanced [...] from the initial medication administration until the metalworking specialist assists with initial maneuvers (biopsy / polypectomy / etc.), or if no maneuvers are performed, until the endoscopist leaves the room. Impression: - The examined portion of the ileum was normal. - The entire examined colon is normal. - Hemorrhoids. - No specimens collected. Recommendation: - Repeat colonoscopy in 10 years for screening purposes. Procedure Code(s): --- Professional --- 91744, Colonoscopy, flexible; diagnostic, including collection of specimen(s) by brushing or washing, when performed (separate procedure) 44660, Moderate sedation; each additional 15 minutes intraservice time G0500, Moderate sedation services provided by the same physician or other qualified health child care attendant performing a gastrointestinal endoscopic service that sedation supports, requiring the presence of an independent trained observer to assist in the monitoring of the patient's level of consciousness and physiological status; initial 15 minutes of intra-service time; patient age 5 years or older (additional time may be reported with 17816, as appropriate) Diagnosis Code(s): --- Professional --- Z12.11, Encounter for screening for malignant neoplasm of colon K64.9, Unspecified hemorrhoids CPT copyright 2020 [employer]. All rights reserved. The codes documented in this report are preliminary and upon mems device scientist review may be revised to meet current compliance requirements. Nahomy Latham, 11/20/2022 8:02:54 AM This document has been electronically signed. Number of Addenda: 0 Note Initiated On: 11/20/2022 7:03 AM Endoscopy Report Elizabeth Herndon ARCADE ATTENDANT, CNM ET GI PROCEDUR E ORDERABLES * (ABNORMAL) Lipid Panel and Direct LDL(If Needed) (10/23/2022 11:20 AM CDT) Cholesterol 322(H) 0 - 199 mg/dL 10/23/2022 1:00 PM T [facility] Triglyceride 205(H) <=149 mg/dL 10/23/2022 1:00 PM [facility] HDL Cholesterol 46 >=40 mg/dL 3 1:00 PM [facility] LDL, Calculated 235(H) <130 mg/dL 3 1:00 PM [facility] Non HDL Chol, Calculated 276(H) <=159 mg/dL 10/23/2022 1:00 PM [facility] Cholesterol/HDL Ratio 7.0 10/23/2022 1:00 PM [facility] Hours Fasting 0 10/23/2022 1:00 PM [facility] Blood Venipuncture / Unknown 10/23/2022 11:20 AM CDT 10/23/2022 11:39 AM CDT Mikayla Sweeney MD LAB_1 [facility] [address] [place] [address] [phone] * (ABNORMAL) Comp Metabolic Panel (10/23/2022 11:20 AM CDT) Sodium 139 136 - 145 mmol/L 10/23/2022 1:00 PM T [facility] Potassium 4.3 3.5 - 5.1 mmol/L 10/23/2022 1:00 PM [facility] Chloride 105 98 - 109 mmol/L 10/23/2022 1:00 PM [facility] CO2 24 20 - 29 mmol/L 10/23/2022 1:00 PM [facility] Anion Gap 10 7 - 16 mmol/L 10/23/2022 1:00 PM [facility] Calcium 9.4 8.4 - 10.4 mg/dL 10/23/2022 1:00 PM [facility] BUN 17 7 - 26 mg/dL 10/23/2022 1:00 PM [facility] Creatinine 0.90 0.55 - 1.02 mg/dL 10/23/2022 1:00 PM [facility] Alkaline Phosphatase 73 40 - 150 U/L 10/23/2022 1:00 PM [facility] AST (SGOT) 16 10 - 40 U/L 10/23/2022 1:00 PM [facility] ALT (SGPT) 21 <=55 U/L 10/23/2022 1:00 PM [facility] Bilirubin, Total 0.4 0.2 - 1.2 mg/dL 10/23/2022 1:00 PM [facility] Protein, Total 7.0 6.4 - 8.3 g/dL 10/23/2022 1:00 PM [facility] Albumin 3.8 3.5 - 5.0 g/dL 10/23/2022 1:00 PM [facility] Glucose 123(H) 70 - 100 mg/dL 10/23/2022 1:00 PM [facility] Comment:The given reference range is for the fasting state. Non-fasting reference range for glucose is 70 - 180 mg/dL. Hours Fasting 0 10/23/2022 1:00 PM [facility] GFR, Estimated >60 >60 mL/min/1.7 3m2 10/23/2022 1:00 PM [facility] Blood Venipuncture / Unknown 10/23/2022 11:20 AM CDT 10/23/2022 11:39 AM [facility] Geri Loza PA-C LAB_1 [facility] [address] [place] [address], [facility] [phone] * Albumin/Creatinine Ratio,Random Urine (08/20/2022 8:36 AM CDT) Pathologist [facility] Albumin/Creati nine Ratio, Urine, Random 10 <30 mg/g 08/20/2022 10:58 AM CDT [facility] Albumin, Urine, Random 18.1 mg/L 08/20/2022 10:58 AM CDT [facility] Creatinine, Urine, Random 182 >20 mg/dL mg/dL 08/20/2022 10:58 AM CDT [facility] Urine Non-blood Collection / Unknown 08/20/2022 8:36 AM CDT 08/20/2022 9:30 AM CDT Mikayla Sweeney MD LAB_1 [facility] [address] [place] [address] [phone] * Hepatitis C Antibody, with Reflex (09/13/2021 11:05 AM CDT) [facility] Hepatitis C Antibody Negative (Non Reactive) Negative (Non Reactive) 09/13/2021 4:31 PM CDT [facility] Comment:Antibodies to HCV no t detected. Does not exclude the possiblity of exposure to HCV. Blood Venipuncture / Unknown 09/13/2021 11:05 AM CDT 09/13/2021 11:16 AM CDT Kaykay Duarte APRN, LEAH LAB_1 [facility] [address] [place], [place] [address] [place] [address] * HIV 1/2 Ag/Ab 4th Generation (06/27/2020 8:04 AM CDT) [facility] HIV 1/2 Antigen/Antib sherry (4th generation) Negative (Non Reactive) Negative (Non Reactive) 06/27/2020 12:45 PM CDT [facility] Comment:HIV-1 p24 Antigen an d HIV-1/HIV-2 Antibody not detected Blood Venipuncture / Unknown 06/27/2020 8:04 AM CDT 06/27/2020 8:09 AM CDT Kaykay Duarte APRN, CNP LAB_1 [facility] [address] [place] [address], [facility] from Last 3 Months or Most Recently Relevant to Health Maintenance Advance Directives * Full Code (Latest Code Status on File) Date Activated Date Inactivated Comments 08/09/2020 4:04 PM 08/10/2020 1:55 PM Care Teams Area Attendant Relationship Specialty Start Date End Date Kaykay Duarte APRN, CNP [address] [place] [address] PCP - General Nurse Practitioner 10/25/21
--- OUTSIDE RECORDS SUMMARY | 2024-01-11 23:41 | XMS_ITS | Encounter Summary ---
Author Organization [facility] Address [address] [place] [address] Care Team Providers Care Drum Sander Setter Name Role Phone Edda Agudelo PA-C Primary Care Provider + [phone] Magno Wood MD Unavailable +[phone] Sixes Jovanna Norman Primary Care Provider Unavailable Parth Ellis MD Unavailable +[phone] Tati Ayala MD Unavailable +[phone] Khris Butt MD Unavailable +[phone] OmrelosRoderick nunes MD Unavailable [phone] Roderick Morelos MD Unavailable [phone] Magno Wood MD Unavailable [phone] Sophie Ocasio Unavailable +[phone] Parth Ellis MD Unavailable +[phone] MorelosRoderick nunes MD Unavailable +[phone] Henny Rosales APRN CHECKERER HAND Unavailable [phone] [facility] Pr ovider Sharee Oliva RD Unavailable Kaykay Duarte SHIFT SUPERVISOR Primary Care Provider [phone] Christiane Rodríguez MD Unavailable +[phone] Luis A Escobedo MD Unavailable +[phone] Chely Fernandez PA-C Unavailable +[phone] CadenaJing jacob Susie FUENTES [facility] Unavailable + [phone] Radha Lopez [facility] Unavailable +[phone] Luis A Escobedo MD Unavailable +[phone] Geri Loza PA-C Unavailable +[phone] Yesenai Raina FUENTES CHECKERER HAND Unavailable [phone] Encounter Details Date Type Department Care Team (Late st Contact Info) Description 02/10/2008 Office Visit-[facility] Heart [facility] [address] [facility] [address] [place] [address] Reji Li MD [address] [facility] [address] [place] [address] Social History Tobacco Use Types [...] Mother - Age 34, cancer-breast; Half-Brother - [place]; Sister 1 - CAD; SOCIAL HISTORY Alcohol Use - socially, wine, mixed drinks and (3x/yr); Smoking - never smoked; Diet - weight Reduction Diet and caffeine use-1-2 per day; Exercise - some exercise, swimming and walking; Seat Belt Use - always; 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; Residence - lives with and children; Place of - [place]; Hours Worked - 30 hours per week; [...] Out COVID-19 03/19/2020 03/19/2020 03/19/2020 6:22 PM BOAT OUTBOARD ENGINE MECHANIC COVID-19 03/19/2020 03/19/2020 04/09/2020 11:3 9 PM BOAT OUTBOARD ENGINE MECHANIC Rule Out COVID-19 06/19/2021 06/19/2021 06/19/2021 1:37 AM CDT Rule Out COVID-19 10/29/2021 10/29/2021 10/29/2021 1:07 AM CDT documented as of this encounter Care Teams Drum Sander Setter Relationship Specialty Start Date End Date Edda Agudelo PA-C [facility] [address] [address] PCP - General 05/04/12 10/11/19 Ernestina Martini [address] [facility] [address] [place] [address] PCP - General Family Practice 10/12/19 08/18/22 [facility] Elvia [address]ug[address] [place] [address] [place] [address] PCP - General 08/19/22 10/14/22 Kaykay Duarte [place] [id number] [place] [address] PCP - General 10/15/22 Magno Wood MD [address] [facility] [address] [place] [address] Otolaryngology 05/29/15 08/02/17 Parth Ellis MD [address] [place] [address] Assigned Heart and Vascular Provider 01/13/20 12/13/21 Tati Ayala MD [address] [place], [place] [address] Assigned Endocrinology Provider 01/13/20 12/29/20 Khris Butt MD [address] [place] [address] [place] [address] Assigned Heart and Vascular Provider 12/14/21 02/14/22 Roderick Morelos MD [address] [place] 748765 Cardiovascular Disease 02/03/22 Roderick Morelos MD [address] [place] 567[address] Assigned Heart and Vascular Provider 02/15/22 07/18/22 Magno Wood MD [address] [facility] [address] [place] [address] Otolaryngology 02/21/22 Sophie Ocasio AuD [address] [facility] [place] [address] Visual Effects Artist Audiology 02/21/22 Parth Ellis MD [address] [place] 4[address]35 Assigned Heart and Vascular Provider 07/19/22 07/25/22 Roderick Morelos MD [address] [place] 638155 Assigned Heart and Vascular Provider 07/26/22 08/08/22 Henny Rosales, BENCH WORKER CHECKERER HAND [address] [place] [address] Assigned Heart and Vascular Provider 08/09/[address] [place], [place] 0[address]135 Registered Dietitian Dietitian, Registered 09/02/22 Christiane Rodríguez MD [address] [facility] [address] [place] [address] Otolaryngology 11/12/22 Luis A Escobedo MD [address] [facility] [address] [place] [address] Assigned Surgical Provider 11/01/22 11/28/22 Chely Fernandez PA-C [address]09 [place] [address] Assigned Surgical Provider 11/29/22 02/06/23 Jing Cadena, BENCH WORKER HAIR SPINNER [address] [facility] [address] [place] [address] Clinical Nurse Specialist Anesthesiology 01/15/23 Radha Lopez, [facility] [address] [place] [address] [phone] Pharmacist Pharmacist 01/16/23 Luis A Escobedo MD [address] [place] [address] 195 [place], [place] 941385 Assigned Surgical Provider 02/07/23 04/15/23 Geri Loza PA-C [address] [place] [address] 301615 Assigned Surgical Provider 04/16/23 Raina Patterson APRN CHECKERER HAND [address] [place] [place] 452175 Nurse Practitioner Cardiovascular Disease 05/11/23 documented as of this encounter
--- OUTSIDE RECORDS SUMMARY | 2024-01-11 23:41 | XMS_ITS | Encounter Summary ---
Author Organization [facility] Address [address] [place] [address] Care Team Providers Care Inhalation Therapy Teacher Name Role Phone Edda Agudelo PA-C Primary Care Provider + [phone] Magno Wood MD Unavailable [place] Jovanna Odd Primary Care Provider Unavailable Parth Ellis MD Unavailable [phone] Tati Ayala MD Unavailable [phone] Khris Butt MD Unavailable [phone] MorelosRoderick nunes MD Unavailable [phone] Roderick Morelos MD Unavailable [phone] Magno Wood MD Unavailable [phone] Sophie Ocasio Unavailable +[phone] Parth Ellis MD Unavailable +[phone] MorelosRoderick nunes MD Unavailable [phone] Henny Rosales APRN EDUCATION COORDINATOR Unavailable [phone] [facility] Care Pr ovider Sharee Oliva RD Unavailable [phone] Kaykay Duarte LIFE SKILLS TEACHER Primary Care Provider [phone] Christiane Rodríguez MD Unavailable +[phone] Luis A Escobedo MD Unavailable +[phone] Chely Fernandez PA-C Unavailable +[phone] CadenaJing jacob Susie FUENTES [facility] Unavailable + [phone] Radha Lopez [facility] Unavailable [phone] Luis A Escobedo MD Unavailable +[phone] Geri Loza PA-C Unavailable +[phone] Yesenia Raina FUENTES [facility] Unavailable Encounter Details Date Type Department Care Team (Late st Contact Info) Description 12/16/2005 [facility] [address] [facility] [address] [place] [address] Reji Li MD [address] [facility] [address] [place] [address] Social History Tobacco Use Types [...] BOY [place]SON Referring Clinic: [facility] CURRENT DIAGNOSES 1. - Hypercholesterolemia, [...] She just had cholesterols done at [facility] yesterday. She will call us next [...] She just had cholesterols done at [facility] yesterday. She will call us next week for the results to determine if weneed to increase her Vytorin. Total consult time: 25 minutes, greater than 50% counseling. Reji Li M.D./[email or web address]/[id number] cc:Luis A Vincent M.D. documented in this encounter Plan of Treatment Not on file documented as of this encounter Visit Diagnoses Not on filedocumented in this encounter Additional Health Concerns Infection Onset Date Last Indicated Resolved Time Rule Out COVID-19 03/19/2020 03/19/2020 03/19/2020 6:22 PM JUNIOR NETWORK ADMINISTRATOR COVID-19 03/19/2020 03/19/2020 04/09/2020 11:3 9 PM JUNIOR NETWORK ADMINISTRATOR Rule Out COVID-19 06/19/2021 06/19/2021 06/19/2021 1:37 AM CDT Rule Out COVID-19 10/29/2021 10/29/2021 10/29/2021 1:07 AM CDT documented as of this encounter Care Teams Inhalation Therapy Teacher Relationship Specialty Start Date End Date Edda Agudelo PA-C [facility] [address] [place] [address] PCP - General 05/04/12 10/11/19 Ernestina Martini [address] [place] [facility] [address] [place] [address] PCP - General Family Practice 10/12/19 08/18/22 [facility] Elvia Nugent [address] [address] [place] [address] PCP - General 08/19/22 10/14/22 [place] [address] [place] [address] PCP - General 10/15/22 Magno Wood MD 420 [facility] 396 [place] [address] Otolaryngology 05/29/15 08/02/17 Parth Ellis MD [address] [place] [address] Assigned Heart and Vascular Provider 01/13/20 12/13/21 Tati Ayala MD [address] [place], [place] 5[address]20 Assigned Endocrinology Provider 01/13/20 12/29/20 Khris Butt MD [address] [facility] [address] [place] [address] Assigned Heart and Vascular Provider 12/14/21 02/14/22 Roderick Morelos MD [address] [place] [address] Cardiovascular Disease 02/03/22 Roderick Morelos MD [address] [place] [address] Assigned Heart and Vascular Provider 02/15/22 07/18/22 Magno Wood MD [address] [place] [address] 396 [place], [place] 757075 Otolaryngology 02/21/22 Sophie Ocasio AuD [address] [place], [place] 101575 High School Assistant Football Coach Audiology 02/21/22 Parth Ellis MD [address] [place] 161295 Assigned Heart and Vascular Provider 07/19/22 07/25/22 Roderick Morelos MD [address] [place] [address] Assigned Heart and Vascular Provider 07/26/22 08/08/22 Henny Rosales APRN EDUCATION COORDINATOR [address] [place] [phone] Assigned Heart and Vascular Provider 08/09/[address] [place], [place] 014385 Registered Dietitian Dietitian, Registered 09/02/22 Christiane Rodríguez MD 420 [facility] 396 [place], [place] 670335 Otolaryngology 11/12/22 Luis A Escobedo MD [address] [place] [address] 195 [place], [place] 198135 Assigned Surgical Provider 11/01/22 11/28/22 Chely Fernandez PA-C [address] [place] [address] 900285 Assigned Surgical Provider 11/29/22 02/06/23 Jing Cadena APRN TURF MANAGER [address] [place] [address] 450 [place], [place] 613225 Clinical Nurse Specialist Anesthesiology 01/15/23 Radha Lopez, [facility] [address] [place] [address] 229155 Pharmacist Pharmacist 01/16/23 Luis A Escobedo MD [address] [place] [address] 026825 Assigned Surgical Provider 02/07/23 04/15/23 Geri Loza PA-C [address] [place] [address] 117785 Assigned Surgical Provider 04/16/23 Raina Patterson, GINA EDUCATION COORDINATOR [address] [facility] [address] [place] 764975 Nurse Practitioner Cardiovascular Disease 05/11/23 documented as of this encounter
--- OUTSIDE RECORDS SUMMARY | 2024-01-11 23:41 | XMS_ITS | Encounter Summary ---
Author Organization [facility] Address [address], [place] [address] Care Team Providers Care Teacher Education Instructor Name Role Phone Kaykay Duarte APRN, CNP Primary Care Provid er Reason for Visit * Reason Comments Vaginal Odor Encounter Details Date Type Department Care Team (Late st Contact Info) Description 04/14/2018 Nurse Triage [facility] [address] [place] [address] Kaykay Duarte APRN, CNP [address] [place] [address] [phone] Vaginal Odor Social History Tobacco Use Types [...] States she will go to Urgent Care ING MACHINE SET UP OPERATOR * Kaykay Duarte APRN, CNP - 04/14/2018 3:22 PM CST Plz call pt. Ok to work her in on at 11:40 or 1pm. ING MACHINE SET UP OPERATOR * Geri Burnett, RN - 04/14/2018 3:09 PM CST Clinician Action: Appointment Work In Reason Vaginal discharge/odor Clinician Next Step: Route to [facility] to follow up and Patient IS expecting a call back from care team Specific Request(s): 1. Pt asking for a work in [facility] for vaginal discharge (white) and odor [...] last menstrual period? no Protocols used: VAGINAL [id number] ING MACHINE SET UP OPERATOR * Karen Saunders - 04/14/2018 3:01 PM CST Pt calling back in. Transferred to triage per request. ING MACHINE SET UP OPERATOR * Jacquelyn Jaquez CNA - 04/14/2018 11:05 AM CST Symptoms Describe your symptoms (if pain, include location): Odor, discharge When did they start? 2 weeks Additional comments (related to the above concern): Pt has had past BV infection. Pt unavailable to speak 11:30-1:00pm today 04/14/18 If a prescription is needed, patient would like it filled at the pharmacy listed in [employer]. (Verify the pharmacy patient would like to use for this request is highlighted in blue in Pharmacy Selection under [employer]) Is it okay to leave a detailed message on your voicemail? Yes (Advise caller that the PN call back number will end with [phone] or unknown) For urgent symptoms: Please route and transfer to: Triage Pool (high priority) For routine symptoms: Please route to: Triage Pool (only transfer if caller insists) ING MACHINE SET UP OPERATOR documented in this encounter Plan of Treatment Not on file documented as of this encounter Visit Diagnoses Not on filedocumented in this encounter Additional Health Concerns Infection Onset Date Last Indicated Resolved Time R/O COVID19 02/08/2021 02/08/2021 02/09/2021 10:0 6 AM BENDING MACHINE SET UP OPERATOR R/O COVID19 02/17/2021 02/17/2021 02/17/2021 11:3 2 PM BENDING MACHINE SET UP OPERATOR documented as of this encounter Care Teams Teacher Education Instructor Relationship Specialty Start Date End Date Kaykay Duarte, SIGN PAINTER, PRODUCE WEIGHER [address] [place] [address] PCP - General Nurse Practitioner 10/25/21 documented as of this encounter
--- OUTSIDE RECORDS SUMMARY | 2024-01-11 23:41 | XMS_ITS | Encounter Summary ---
Author Organization [facility] Address [address] [place] [address] Care Team Providers Care Lastex Operator Name Role Phone Barrington Agudelo PA-C Primary Care Provider + [phone] Magno Wood MD Unavailable [place] Jovanna [place] Primary Care Provider Unavailable Parth Ellis MD Unavailable [phone] Tati Ayala MD Unavailable [phone] Khris Butt MD Unavailable [phone] MorelosRoderick nunes MD Unavailable [phone] Roderick Morelos MD Unavailable [phone] Magno Wood MD Unavailable [phone] Sophie Ocasio Unavailable +[phone] Parth Ellis MD Unavailable +[phone] MorelosRoderick nunes MD Unavailable [phone] Henny Rosales APRN AWNING CRAFTSMAN Unavailable [phone] [facility] Pr ovider Sharee Oliva RD Unavailable [phone] Kaykay Duarte RECREATIONAL ASSISTANT Primary Care Provider [phone] Christiane Rodríguez MD Unavailable +[phone] Luis A Escobedo MD Unavailable + [phone] Chely Fernandez PA-C Unavailable +[phone] Cadena Jing Susie FUENTES SCISSORS SHARPENER Unavailable + [phone] Radha Lopez [facility] Unavailable +[phone] Luis A Escobedo MD Unavailable +[phone] Geri Loza PA-C Unavailable +[phone] Yesenia Raina FUENTES AWNING CRAFTSMAN Unavailable [phone] Encounter Details Date Type Department Care Team (Late st Contact Info) Description 05/07/2011 Office Visit-[facility] Heart [facility] [address] [facility] [address] [place] [phone] Reji Li MD [address] [facility] [address] [place] [address] Social History Tobacco Use Types [...] was 89. ALT was 15. 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 Creatinine was [...] Rule Out COVID-19 03/19/2020 03/19/202003/1903/19/2020 6:22 PM FLYING SQUAD WORKER COVID-19 03/19/2020 03/19/2020 04/09/2020 11:3 9 PM FLYING SQUAD WORKER Rule Out COVID-19 06/19/2021 06/19/2021 06/19/2021 1:37 AM CDT Rule Out COVID-19 10/29/2021 10/29/2021 10/29/2021 1:07 AM CDT documented as of this encounter Care Teams Lastex Operator Relationship Specialty Start Date End Date Barrington Agudelo PA-C [facility] [address] [place] [address] PCP - General 05/04/12 10/11/19 Ernestina Martini [address] [place] [address] [facility] 396 [place] [address] PCP - General Family Practice 10/12/19 08/18/22 [facility] [place] [address] [place], [place] 244977 PCP - General 08/19/22 10/14/22 [place] [address] [place], [place] 249347 PCP - General 10/15/22 Magno Wood MD [address] 513435 Otolaryngology 05/29/15 08/02/17 Parth Ellis MD [address] [place] [place] 0[address]145 Assigned Heart and Vascular Provider 01/13/20 12/13/21 Tati Ayala MD [address] [place], [place] 45[address] Assigned Endocrinology Provider 01/13/20 12/29/20 Khris Butt MD [address] [place] [address] [place] [address] Assigned Heart and Vascular Provider 12/14/21 02/14/22 Roderick Morelos MD [address] [place] [address] MD Cardiovascular Disease 02/03/22 Roderick Morelos MD [address] [place] [address] Assigned Heart and Vascular Provider 02/15/22 07/18/22 Magno Wood MD [address] [place] [address] 261765 Otolaryngology 02/21/22 Sophie Ocasio AuD [address] [place] [address] 730685 Beef Boner Audiology 02/21/22 Parth Ellis MD [address] [place] [address] Assigned Heart and Vascular Provider 07/19/22 07/25/22 Roderick Morelos MD [address] [place] [address] Assigned Heart and Vascular Provider 07/26/22 08/08/22 Henny Rosales, PROFESSOR OF ART HISTORY AWNING CRAFTSMAN [address] [place] [address] Assigned Heart and Vascular Provider 08/09/[address] [place], [place] [address] Registered Dietitian Dietitian, Registered 09/02/22 Christiane Rodríguez MD 420 [facility] 396 [place], [place] [address] Otolaryngology 11/12/22 Luis A Escobedo MD [address] [place] [address] 345325 Assigned Surgical Provider 11/01/22 11/28/22 Chely Fernandez PA-C [address] [place] [address] 031225 Assigned Surgical Provider 11/29/22 02/06/23 Jing Cadena, PROFESSOR OF ART HISTORY SCISSORS SHARPENER [address] [place] [address] 450 [place], [place] 120255 Clinical Nurse Specialist Anesthesiology 01/15/23 Radha Lopez, [facility] [address] [place] [address] [phone] Pharmacist Pharmacist 01/16/23 Luis A Escobedo MD [address] [place] [address] 195 [place], [place] 950155 Assigned Surgical Provider 02/07/23 04/15/23 Geri Loza PA-C [address] [place] [address] Assigned Surgical Provider 04/16/23 Raina Patterson APRN AWNING CRAFTSMAN [address] [place] [address] Nurse Practitioner Cardiovascular Disease 05/11/23 documented as of this encounter
--- OUTSIDE RECORDS SUMMARY | 2024-01-11 23:41 | XMS_ITS | Encounter Summary ---
Author Organization [place] Address [address] [place] [address] Care Team Providers Care Shade Cutter Name Role Phone Edda Agudelo PA-C Primary Care Provider + [phone] Magno Wood MD Unavailable [phone] [place] Jovanna [place] Primary Care Provider Unavailable Parth Ellis MD Unavailable [phone] Tati Ayala MD Unavailable [phone] Khris Butt MD Unavailable [phone] MorelosRoderick nunes MD Unavailable [phone] Roderick Morelos MD Unavailable [phone] Magno Wood MD Unavailable Sophie Ocasio Unavailable [phone] Parth Ellis MD Unavailable [phone] MorelosRoderick nunes MD Unavailable [phone] Henny Rosales APRN CLIENT DEVELOPMENT MANAGER Unavailable [phone] [facility] Primary [facility] Pr ovider Sharee Oliva RD Unavailable [phone] Kaykay Duarte WAN SUPPORT SPECIALIST Primary Care Provider [phone] Christiane Rodríguez MD Unavailable [phone] Luis A Escobedo MD Unavailable + [phone] Cehly Fernandez PA-C Unavailable [phone] Jing Cadena TRANSLATOR AND INTERPRETER CABANA ATTENDANT Unavailable + [phone] Radha Lopez [facility] Unavailable [phone] Luis A Escobedo MD Unavailable [phone] Geri Loza PA-C Unavailable [phone] Raina Patterson TRANSLATOR AND INTERPRETER CLIENT DEVELOPMENT MANAGER Unavailable [phone] Encounter Details Date Type Department Care Team (Late st Contact Info) Description 03/31/2006 Office Visit-[facility] [place] [address] [facility] [address] [place] [phone] Imani Ott, TRANSLATOR AND INTERPRETER CLIENT DEVELOPMENT MANAGER [address] [facility] [address] [place] [address] Social History Tobacco Use Types Packs/Day Years [...] Referring Clinic: [facility] CURRENT DIAGNOSES 1. - Hypercholesterolemia, 272.0 [...] delightful 35-year-old female who presents to the [facility] today for a follow-up visit [...] - DE; Sister 1 - CAD; <FONT COLOR=#[id number]><FONT POINT=10>CARDIAC RISK FACTORS Tobacco Abuse: negative; Family [...] Out COVID-19 03/19/2020 03/19/2020 03/19/2020 6:22 PM VBA PROGRAMMER COVID-19 03/19/2020 03/19/2020 04/09/2020 11:3 9 PM VBA PROGRAMMER Rule Out COVID-19 06/19/2021 06/19/2021 06/19/2021 1:37 AM CDT Rule Out COVID-19 10/29/2021 10/29/2021 10/29/2021 1:07 AM CDT documented as of this encounter Care Teams Shade Cutter Relationship Specialty Start Date End Date Edda Agudelo PA-C [facility] [address] [place] [address] PCP - General 05/04/12 10/11/19 Ernestina Martini [address] [facility] [address] [place] [address] PCP - General Family Practice 10/12/19 08/18/22 [facility] [place] [address] [place], [place] 528867 PCP - General 08/19/22 10/14/22 [place] [address] [place] [address] PCP - General 10/15/22 Magno Wood MD [address] [facility] [address] [place], [place] [address] Otolaryngology 05/29/15 08/02/17 Parth Ellis MD [address] [place] [address] Assigned Heart and Vascular Provider 01/13/20 12/13/21 Tati Ayala MD [address] [place], [place] 809090 Assigned Endocrinology Provider 01/13/20 12/29/20 Khris Butt MD [address] [facility] [address] [place] [address] Assigned Heart and Vascular Provider 12/14/21 02/14/22 Roderick Morelos MD [address] [facility] [place] [address] Cardiovascular Disease 02/03/22 Roderick Morelos MD [address] [facility] [place] [address] Assigned Heart and Vascular Provider 02/15/22 07/18/22 Magno Wood MD [address] [place] [address] Otolaryngology 02/21/22 Sophie Ocasio AuD [address] [place] [address] 759955 Toddler Caregiver Audiology 02/21/22 Parth Ellis MD [address] [place] 871775 Assigned Heart and Vascular Provider 07/19/22 07/25/22 Roderick Morelos MD [address] [place] [id number] Assigned Heart and Vascular Provider 07/26/22 08/08/22 Henny Rosales APRN CLIENT DEVELOPMENT MANAGER [address] [facility] [phone] Assigned Heart and Vascular Provider 08/09/[address] [place] [address] [phone] Registered Dietitian Dietitian, Registered 09/02/22 Christiane Rodríguez MD [address] [place] [address] [address] [place], [place] 324785 Otolaryngology 11/12/22 Luis A Escobedo MD [address] [place] [address] 336475 Assigned Surgical Provider 11/01/22 11/28/22 Chely Fernandez PA-C [address] [place] [address] Assigned Surgical Provider 11/29/22 02/06/23 Jing Cadena, TRANSLATOR AND INTERPRETER CABANA ATTENDANT [address] [place] [address] [address] [place], [place] 927245 Clinical Nurse Specialist Anesthesiology 01/15/23 Radha Lopez, [facility] [address] [place] [address] Pharmacist Pharmacist 01/16/23 Luis A Escobedo MD [address] [place] [address] 871865 Assigned Surgical Provider 02/07/23 04/15/23 Geri Loza PA-C [address] [place] [address] [id number] Assigned Surgical Provider 04/16/23 Raina Patterson, GINA CLIENT DEVELOPMENT MANAGER [address] [facility] [address] [place] [address] 719605 Nurse Practitioner Cardiovascular Disease 05/11/23 documented as of this encounter
--- NOTE | 2024-01-12 00:31 | CRLHL7_ITS ---
For Patients: As a result of the Cures Act, medical imaging exams and procedure reports are released immediately into your electronic medical record. You may view this report before your referring provider. If you have questions, please contact your health care provider. INDICATION: Post op surgery swelling/pain. COMPARISON: None. TECHNIQUE: A compression venous ultrasound exam was performed of both lower extremities using newby scale imaging, color Doppler, and spectral Doppler analysis. FINDINGS: Right: Sonographic imaging of the right lower extremity demonstrates normal compressibility and color Doppler venous blood flow within the common femoral, femoral, deep femoral, and proximal greater saphenous veins. At a lower level the popliteal, peroneal, and posterior tibial veins also show normal compressibility and color Doppler venous blood flow. Left: Sonographic imaging of the left lower extremity demonstrates normal compressibility and color Doppler venous blood flow within the common femoral, femoral, deep femoral, and proximal greater saphenous veins. At a lower level the popliteal, peroneal, and posterior tibial veins also show normal compressibility and color Doppler venous blood flow. IMPRESSION: 1. Negative for acute DVT in the lower extremities. 2. Subcutaneous edema in the right leg. Dictated by Domitila Faria MD @ 01/12/2024 1:15:50 AM (Electronically Signed)
[2024-01-12] MEDS: OXYCODONE 5 MG TABLET 10 MG PO (00:50)
[2024-01-12 01:42] VITALS: BP 128/70; PULSE 81; RESP 20; TEMP 36.9; O2SAT 97
[2024-01-12 01:43] VITALS: BP 128/70; PULSE 81; RESP 20; TEMP 36.9
== END 2024-01-12 01:43 | disposition home or self-care (01) ==
PROVIDERS: Emergency Provider Family Medicine
DX: G89.18 Other acute postprocedural pain (principal)
CPT/HCPCS: 73502; 93970; 99284; A9270

== ENCOUNTER 2024-01-27 11:00 | Outpatient (RCR) | payer BC, SELFPAY | END 2024-03-30 12:40 | disposition home or self-care (01) | PROVIDERS: Visit Provider Orthopaedic Surgery Sports Medicine | DX: M16.11 Unilateral primary osteoarthritis, right hip (principal); Z96.641 Presence of right artificial hip joint; R26.9 Unspecified abnormalities of gait and mobility; R53.1 Weakness; Z51.89 Encounter for other specified aftercare | CPT/HCPCS: 97110; 97140; 97161; 97164; 97535 ==

== ENCOUNTER 2024-02-16 09:15 | Outpatient (CLI) | payer BC, SELFPAY ==
--- OUTSIDE RECORDS SUMMARY | 2024-02-16 09:20 | XMS_ITS | Referral Summary ---
Author Organization [place] Address [address] [place] [address] Care Team Providers Care Film Rental Clerk Name Role Phone Roderick Morelos MD Unavailable [phone] Magno Wood MD Unavailable [phone] Sophie Ocasio AuD Unavailable Sharee Oliva RD Unavailable [phone] Kaykay Duarte QUICK SKETCH ARTIST Primary Care Provider Christiane Rodríguez MD Unavailable Jing Cadena APRN HIGH SCHOOL VICE PRINCIPAL Unavailable Radha Lopez [facility] Unavailable Geri LozaC Unavailable [phone] Raina Patterson APRN HOOP PUNCH AND COILER OPERATOR HELPER Unavailable [phone] Allergies Active Allergy Reactions Criticality Noted Date Comments Ibuprofen Other (See Comments) Low 10/19/2020 Gastric sleeve Medications levothyroxine (SYNTHROID/LEVOT HROID) 200 MCG tablet Take 225 mcg by mouth at bedtime 90 tablet Active gabapentin (NEURONTIN) 600 MG tablet Take 600 mg by mouth At Bedtime Active rOPINIRole (REQUIP) 2 MG tablet Take 2 mg by mouth 2 times daily Take in afternoon and at bedtime Active albuterol (PROVENTIL) (2.5 MG/3ML) 0.083% neb solutionIndicati ons:Asthma with acute exacerbation, unspecified asthma severity, unspecified [...] breath / dyspnea or wheezing 18 g 2 Active Additional Information Patient taking differently:2 puff InhalationPRN, shortness of breath, wheezing, Reported on 11/19/2022 blood glucose (ACCU-CHEK GUIDE) test strip USE 1 STRIP TO TEST THREE TIMES A DAY. 3 Active levonorgestrel (MIRENA) 52 MG (20 mcg/day) IUD 1 each by Intrauterine route Active omeprazole (PRILOSEC) [address] capsuleIndicatio ns:Gastroesophag eal reflux disease with esophagitis, unspecified whether hemorrhage Take 1 capsule (40 mg) by mouth 2 times daily 180 capsule 3 3 Active cyanocobalamin (VITAMIN B-12) [address] 1 tablet under the tongue every morning Active acetaminophen (TYLENOL) 325 MG tabletIndication s:Morbid obesity (H),Acute post-operative pain Take 2 tablets (650 mg) by mouth every 4 hours as needed for other (For optimal non-opioid multimodal pain management to improve pain control and physical function.) 100 tablet 3 Active blood glucose monitoring (NO BRAND SPECIFIED) meter device kitIndications:S /P laparoscopic sleeve gastrectomy,Clas s 3 severe obesity with serious comorbidity and body mass index (BMI) of 45.0 to 49.9 in adult, unspecified obesity type (H),Type 2 diabetes mellitus without complication, without long-term current use of insulin (H) Use to test blood sugar 1 times daily or as directed. 1 kit 4 Active blood glucose (NO BRAND SPECIFIED) lancets standardIndicati ons:S/P laparoscopic sleeve gastrectomy,Clas s 3 severe obesity with serious comorbidity and body mass index (BMI) of 45.0 to 49.9 in adult, unspecified obesity type (H),Type 2 diabetes mellitus without complication, without long-term current use of insulin (H) Use to test blood sugar 1 times daily or as directed. 100 each 1 4 Active blood glucose (CONTOUR NEXT TEST) test stripIndications :S/P laparoscopic sleeve gastrectomy,Clas s 3 severe obesity with serious comorbidity and body mass index (BMI) of 45.0 to 49.9 in adult, unspecified obesity type (H),Type 2 diabetes mellitus without complication, without long-term current use of insulin (H) 1 strip by In Vitro route daily Use to test blood sugar 1 times daily or as directed. 100 strip 3 4 Active ursodiol (ACTIGALL) 300 MG capsuleIndicatio ns:S/P laparoscopic sleeve gastrectomy Take 1 capsule (300 mg) by mouth 2 times daily 60 capsule 5 4 Active Cyanocobalamin (B-12) 500 MCG SUBLIndications: S/P laparoscopic sleeve gastrectomy Place 1 tablet under the tongue daily 30 tablet 11 4 Active Active Problems Problem Noted Date Diagnosed Date Morbid obesity 03/18/2023 Hyperglycemia 10/30/2021 Acute bronchitis, unspecified organism 2 Asthma with acute exacerbati on, unspecified asthma severity, unspecified whether persistent 06/19/2021 S/P laparoscopic sleeve gastrectomy 08/09/2020 08/15/2022 Overview (08/15/2022): Laparoscopic vertical sleeve gastrectomy, intraoperative EGD No elective surgery for 30 days starting 08/09/20 Assessment & Plan (08/20/2022 5:34 PM CDT): S/p gastric sleeve 08/09/2020 at [facility]. No [...] 12/15/2019 Severe obstructive sleep apnea 07/06/2019 Overview (05/31/2020): Setting: Supplied by: PSG done: 07-04-18 AHI 35 RDI 36 Lowest O2 Sat: 87% [place] Hypothyroidism, unspecified type 06/28/2019 Cervical high risk HPV (human papillomavirus) te st positive 08/05/2017 Overview (05/31/2020): Overview: [facility] Review: History: 2018: NILM HPV+ (18), colp neg Plan, per ASCCP guidelines: co-test in 12 months (08/2018) Class 3 severe obesity with serious comorbidity and body mass index (BMI) of 45.0 to 49.9 in adult, unspecified obesity type 04/15/2017 Assessment & Plan (08/20/2022 5:36 PM CDT): Overweight onset through 3 pregnancies and was [...] 05/29/2014 Gastroesophageal reflux disease with esophagitis 08/14/2009 Assessment & Plan (08/20/2022 5:13 PM CDT): GERD onstet after sleeve surgery. Symptoms include [...] Getting School Help Needed Not on file 08/20 Comments No Sex and Gender Information Value Date Recorded Sex Assigned at Not on file Legal 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 CHRISTIAN EDUCATION DIRECTOR Gender Identity Not on file Sexual Orientation Not on file Last Filed Vital Signs Vital Sign Reading Time Taken Comments Blood Pressure 124/78 03/24/2023 10:20 AM CHRISTIAN EDUCATION DIRECTOR Pulse 70 03/24/2023 10:20 AM CHRISTIAN EDUCATION DIRECTOR Temperature 36.8 C (98.2 F) 03/24/2023 10:20 AM CHRISTIAN EDUCATION DIRECTOR Respiratory Rate 16 03/24/2023 10:20 AM CHRISTIAN EDUCATION DIRECTOR Oxygen Saturation 99% 03/24/2023 10:20 AM CHRISTIAN EDUCATION DIRECTOR Inhaled Oxygen Concentration - - Weight 120.7 kg (266 lb) 04/23/2023 11:55 AM CHRISTIAN EDUCATION DIRECTOR Height 167.6 cm (5' 6) 04/23/2023 11:55 AM CHRISTIAN EDUCATION DIRECTOR Body Mass Index 42.93 04/23/2023 11:55 AM CHRISTIAN EDUCATION DIRECTOR Plan of Treatment Not on file Goals [...] FREE T4 REFLEX Add-On 02/28/2021 1:00 AM CHRISTIAN EDUCATION DIRECTOR 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 [...] CDT Verified by Quinn Wetzel on 10/24/2022. us Mikayla Sweeney MD LAB - BLOOD ORDERABLES Edite d Result - Final MELIDAEZE PFT NON-INTERFACED (ONBASE SCANS) * (ABNORMAL) Hemoglobin A1c (10/23/2022 11:20 AM CDT) Hemoglobin A1C (External) 7.0(H) <=5.6 % NON-INTERFACED (ONBASE SCANS) Blood BLOOD SPECIMEN / Unknown 10/23/2022 11:20 AM CDT Narrative MELIDAEZE PFT - 10/24/2022 8:49 AM CDT Verified by Quinn Wetzel on 10/24/2022. us Geri Loza PA-C LAB - BLOOD ORDERABLES Edit ed Result - Final MELIDAEZE PFT NON-INTERFACED (ONBASE SCANS) * (ABNORMAL) [...] / Unknown 10/23/2022 11:20 AM CDT Narrative MATTIEE PFT - 10/24/2022 11:08 AM CDT Verified by Quinn Wetzel on 10/24/2022. us Mikayla Sweeney MD LAB - BLOOD ORDERABLES Edite d Result - Final LUIS PFT NON-INTERFACED (ONBASE SCANS) * TSH with free T4 reflex (02/28/2021 1:00 AM CHRISTIAN EDUCATION DIRECTOR) TSH 0.86 0.40 - 4.00 mU/L 03/01/2021 4:13 PM CHRISTIAN EDUCATION DIRECTOR LABORATORY Blood STRUCTURE OF RIGHT UPPER LIMB / Unknown Venipuncture / Unknown 02/28/2021 1:00 AM CHRISTIAN EDUCATION DIRECTOR 02/28/2021 1:08 AM CHRISTIAN EDUCATION DIRECTOR us Parth Ellis MD LAB - BLOOD ORDERABLES Final Result [facility] Acute Care Lab [address] Lab (1st floor, no room number) [place] [address], [facility] [phone] from Last 3 Months or Most Recently Relevant to Health Maintenance Additional Health Concerns Active Problems Noted Date Diagnosed Date BRIAN PATHWAY SURGERY IS SCHEDULED 10/15/2022 Advance Directives For more information, please contact: [phone] * Full Code (Latest Code Status on [...] 12:01 PM 05/01/2018 3:45 AM Care Teams Film Rental Clerk Relationship Specialty Start Date End Date Kaykay Duarte, QUICK SKETCH ARTIST [address] [place] [address] [facility] [place] [phone] PCP - General 10/15/22 Roderick Morelos MD [address] [place], [place] 75[address] Cardiovascular Disease 02/03/22 Magno Wood MD [address] [place] [address] 809985 Otolaryngology 02/21/22 Sophie Ocasio AuD [address] [place] [address] 029705 Charge Account Authorizer Audiology 02/21/[address] [place] [address] Registered Dietitian Dietitian, Registered 09/02/22 Christiane Rodríguez MD [address] [facility] 396 [place] [address] Otolaryngology 11/12/22 Jing Cadena APRN HIGH SCHOOL VICE PRINCIPAL 420 [facility] [address] [place], [place] 312[address] Clinical Nurse Specialist Anesthesiology 01/15/23 Radha Lopez, [facility] [address] [place] [address] [phone] Pharmacist Pharmacist 01/16/23 Geri Loza PA-C [address] [place] [address]67 Assigned Surgical Provider 04/16/23 Raina Patterson APRN HOOP PUNCH AND COILER OPERATOR HELPER [address] [place] [address] [place], [place] 0[address] Nurse Practitioner Cardiovascular Disease 05/11/23
--- OUTSIDE RECORDS SUMMARY | 2024-02-16 09:20 | XMS_ITS | Encounter Summary ---
Author Organization [place] Address [address] [place] [address] Care Team Providers Care Keg Washer Name Role Phone Roderick Morelos MD Unavailable [phone] Magno Wood MD Unavailable [phone] Sophie Ocasio AuD Unavailable [phone] Henny Rosales TOP LIFT COMPRESSOR FOUNDATION STAGE TEACHER Unavailable Sharee Oliva RD Unavailable [phone] Kaykay Duarte WELL SHOOTER Primary Care Provider [phone] Christiane Rodríguez MD Unavailable Jing Cadena APRN MDS RN Unavailable Radha Lopez [facility] Unavailable Geri Loza PA-C Unavailable Raina Patterson APRN FOUNDATION STAGE TEACHER Unavailable Encounter Details Date Type Department Care Team (Late st Contact Info) Description 04/23/2023 Nabil Medical Advice [facility] [address] 4th [place] [address] Kang Griffiths Social History Tobacco Use Types Packs/Day Years Used Date Smoking Tobacco: Never Passive Smoke Exposure: Never Smokeless Tobacco: Never Alcohol Use Standard Drinks/Week Comments Not Currently 0 (1 standard drink = 0.6 oz pur e alcohol) socially PHQ-2 Answer Date Recorded PHQ-2 Score 0 04/23/2023 Adolescent Education Answer Date Record ed Getting School Help Needed Not on file 12/19 Comments No Sex and Gender Information Value Date Recorded Sex Assigned at Not on file Legal 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 DIRECTOR SPEECH Gender Identity Not on file Sexual Orientation [...] documented as of this encounter Care Teams Keg Washer Relationship Specialty Start Date End Date Kaykay Duarte, WELL SHOOTER [address] [place] [address] PCP - General 10/15/22 Roderick Morelos MD [address] [place] 775595 Cardiovascular Disease 02/03/22 Magno Wood MD [address] [place] [address] 856235 Otolaryngology 02/21/22 Sophie Ocasio, Nick [address] [place] [address] 675085 Crossing [place] [facility] 02/21/22 Henny Rosales, TOP LIFT COMPRESSOR FOUNDATION STAGE TEACHER [address] [place] [address] Assigned Heart and Vascular Provider 08/09/22 02/12/[address] [place] [address] Registered Dietitian Dietitian, Registered 09/02/22 Christiane Rodríguez MD [address] [place] [address] 396 [place] [address] Otolaryngology 11/12/22 Jing Cadena APRN MDS RN [address] [place] [address] 450 [place] [address] Clinical Nurse Specialist Anesthesiology 01/15/23 Radha Lopez, [facility] [address] [place] [address] Pharmacist Pharmacist 01/16/23 Geri oLza PA-C [address] [place] [address] Assigned Surgical Provider 04/16/23 Raina Patterson APRN FOUNDATION STAGE TEACHER [address] [place] [address] Nurse Practitioner Cardiovascular Disease 05/11/23 documented as of this encounter
--- OUTSIDE RECORDS SUMMARY | 2024-02-16 09:20 | XMS_ITS | Clinical Summary ---
Author Organization [place] Address [address] [place] [address] Care Team Providers Care Pacu Nurse Name Role Phone Roderick Morelos MD Unavailable Magno Wood MD Unavailable [phone] Sophie Ocasio AuD Unavailable Sharee Oliva RD Unavailable [phone] Kaykay Duarte APPLICATIONS SUPPORT ANALYST Primary Care Provider Christiane Rodríguez MD Unavailable [phone] Jing Cadena APRN HAND CEMENTER Unavailable [phone] Radha Lopez [facility] Unavailable Geri Loza PA-C Unavailable [phone] Raina Patterson APRN MARKETING REP Unavailable Allergies Active Allergy Reactions Criticality Noted [...] PM CDT): S/p gastric sleeve 08/09/2020 at [facility]. No post op complications. 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 Gastric sleeve was completed 08/09/[address] [facility] [address] Barillas. Starting weight 338lb, BMI 56.25. She felt that instantly did not see expected weight loss results. Per chart review had lost 8lbs by 3 months post op and has followed up with [facility] since. She has lost 38lbs since surgery, [...] on file Legal 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 HYDROMETER CALIBRATOR Gender Identity Not on file Sexual Orientation Not on file Last Filed Vital Signs Vital Sign Reading Time Taken Comments Blood Pressure 124/78 03/24/2023 10:20 AM HYDROMETER CALIBRATOR Pulse 70 03/24/2023 10:20 AM HYDROMETER CALIBRATOR Temperature 36.8 C (98.2 F) 03/24/2023 10:20 AM HYDROMETER CALIBRATOR Respiratory Rate 16 03/24/2023 10:20 AM HYDROMETER CALIBRATOR Oxygen Saturation 99% 03/24/2023 10:20 AM HYDROMETER CALIBRATOR Inhaled Oxygen Concentration - - Weight 120.7 kg (266 lb) 04/23/2023 11:55 AM HYDROMETER CALIBRATOR Height 167.6 cm (5' 6) 04/23/2023 11:55 AM HYDROMETER CALIBRATOR Body Mass Index 42.93 04/23/2023 11:55 AM HYDROMETER CALIBRATOR Plan of Treatment Health Maintenance Due Date [...] Additional history exists A1C 01/23/2023 10/23/2022, 10/30/2021 Medicare Annual MTM Pharmacist Visit (once per calendar year) 2023 01/27/2023 BMP 10/24/2023 10/23/2022, 03/23, 01/12/2022, Additional history [...] FREE T4 REFLEX Add-On 02/28/2021 1:00 AM HYDROMETER CALIBRATOR 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 [...] BLOOD ORDERABLES Edite d Result - Final Performing Organization Address [facility]/ZIP Co de Phone Number BREEZE PFT NON-INTERFACED (ONBASE SCANS) * (ABNORMAL) Hemoglobin A1c (10/23/2022 11:20 AM CDT) Hemoglobin A1C (External) 7.0(H) <=5.6 % NON-INTERFACED (ONBASE SCANS) Blood BLOOD SPECIMEN / Unknown 10/23/2022 11:20 AM CDT Narrative BREEZE PFT - 10/24/2022 8:49 AM CDT Verified by Quinn Wetzel on 10/24/2022. us Geri Loza PA-C LAB - BLOOD ORDERABLES Edit ed Result - Final BREEZE PFT NON-INTERFACED (ONBASE SCANS) * (ABNORMAL) [...] 10/24/2022. Mikayla Sweeney MD LAB - BLOOD ORDERABLES Edite d Result - Final LUIS PFT NON-INTERFACED (ONBASE SCANS) * TSH with free T4 reflex (02/28/2021 1:00 AM HYDROMETER CALIBRATOR) TSH 0.86 0.40 - 4.00 mU/L 03/01/2021 4:13 PM HYDROMETER CALIBRATOR [facility] LABORATORY Blood STRUCTURE OF RIGHT UPPER LIMB / Unknown Venipuncture / Unknown 02/28/2021 1:00 AM HYDROMETER CALIBRATOR 02/28/2021 1:08 AM HYDROMETER CALIBRATOR us Parth Ellis MD LAB - BLOOD ORDERABLES Final Result [facility] Acute Care Lab [address] Lab (1st floor, no room number) [place] [address], [facility] [phone] from Last 3 Months or Most Recently Relevant to Health Maintenance Additional Health Concerns Active Problems Noted Date Diagnosed Date BRIAN PATHWAY SURGERY IS SCHEDULED 10/15/2022 Advance Directives For more information, please contact: [phone] * Full Code (Latest Code Status on [...] 12:01 PM 05/01/2018 3:45 AM Care Teams Pacu Nurse Relationship Specialty [place] [address] [place] [address] PCP - General 10/15/22 Roderick Morelos MD [address] [place] [id number] Cardiovascular Disease 02/03/22 Magno Wood MD [address] [place] [address] Otolaryngology 02/21/22 Sophie Ocasio AuD [address] [place] [address] 809705 Netbackup Engineer Audiology 02/21/[address] [place] [address] Registered Dietitian Dietitian, Registered 09/02/22 Christiane Rodríguez MD [address] [place] [address] 095455 Otolaryngology 11/12/22 Jing Cadena APRN HAND CEMENTER [address] [place] [address] [phone] Clinical Nurse Specialist Anesthesiology 01/15/23 Radha Lopez [facility] [address] [place] [address] 180765 Pharmacist Pharmacist 01/16/23 Geri Loza PA-C [address] [place] [address] [id number] Assigned Surgical Provider 04/16/23 Raina Patterson APRN MARKETING REP [address] [place] 819615 Nurse Practitioner Cardiovascular Disease 2/19/24
--- OUTSIDE RECORDS SUMMARY | 2024-02-16 09:20 | XMS_ITS | Encounter Summary ---
Author Organization [facility] Address [address] [place] [address] Care Team Providers Care Nursing Informatics Analyst Name Role Phone Roderick Morelos MD Unavailable [phone] Magno Wood MD Unavailable [phone] Sophie Ocasio AuD Unavailable Henny Rosales PHOTO STYLIST COORDINATOR HOTELS Unavailable [phone] Unavailable [phone] Kaykay Duarte INDUSTRIAL ILLUMINATING ENGINEER Primary Care Provider Christiane Rodríguez MD Unavailable Jing Cadena APRN ADMINISTRATOR Unavailable Radha Lopez [facility] Unavailable Geri Loza PA-C Unavailable [phone] Raina Patterson APRN COORDINATOR HOTELS Unavailable [phone] Encounter Details Date Type Department Care Team (Late st Contact Info) Description 10/18/2023 [facility] Heart [address] [address] Radha Lopez, RPH [address] [place] [address] Social History Tobacco Use Types Packs/Day Years [...] on file Legal 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 FILLER SHREDDER HELPER Gender Identity Not on file Sexual Orientation [...] documented as of this encounter Care Teams Nursing Informatics Analyst Relationship Specialty Start Date End Date Kaykay Duarte INDUSTRIAL ILLUMINATING ENGINEER [address] [place] [address] PCP - General 10/15/22 Roderick Morelos MD [address] [place], [place] [address] Cardiovascular Disease 02/03/22 Magno Wood MD 420 [facility] [address] [place], [place] [address]805 Otolaryngology 02/21/22 Sophie Ocasio AuD [address] [place] [address] Medical Record Specialist Audiology 02/21/22 Henny Rosales, PHOTO STYLIST COORDINATOR HOTELS [address] [place] [phone] Assigned Heart and Vascular Provider 08/09/22 02/12/[address] [place], [place] 390535 Registered Dietitian Dietitian, Registered 09/02/22 Christiane Rodríguez MD 420 [facility] [address] [place] [address] Otolaryngology 11/12/22 Jing Cadena, PHOTO STYLIST ADMINISTRATOR 420 [facility] 450 [place] [address] Clinical Nurse Specialist Anesthesiology 01/15/23 Radha Lopez, [facility] [address] [place], [place] [address] Pharmacist Pharmacist 01/16/23 Geri Loza PA-C [address] [place], [place] [address]0055 Assigned Surgical Provider 04/16/23 Raina Patterson, PHOTO STYLIST COORDINATOR HOTELS [address] [place] [address] Nurse Practitioner Cardiovascular Disease 05/11/23 documented as of this encounter
--- OUTSIDE RECORDS SUMMARY | 2024-02-16 09:20 | XMS_ITS | Clinical Summary ---
Author Organization [facility] Address [place], [place] [address] Care Team Providers Care Customer Consultant Name Role Phone Brandan Burleson MD Unavailable [phone] Pcp, No Primary Care Provider Unavailabl e [...] solution (FLONASE)Indications :Purulent postnasal drainage Inhale 1 [place] into both nostrils 2 times daily. 1 [...] Type Department Care Team Description 11/26/2023 Telephone [facility] Orthopedics - Joint Replacement [facility] [address] [place] [phone] Jose Enrique Ricardo PA Concerns (ibuprofen and tylenol not effective for ) 11/25/2023 Telephone [facility] Orthopedics Joint Replacement [facility] [address] [place] [address] Dionisio Agudelo MD Surgery Scheduled 11/20/2023 9:50 AM CDT Office Visit [facility] Orthopedics Joint Replacement [facility] [address] [facility] [address] [place] [address] Dionisio Agudelo MD Hip Pain/problem (Right Hip Pain) 11/20/2023 Transcribe Orders [facility] Joint Replacement [facility] [address] [facility] [address] [place] [phone] Dionisio Agudelo MD 11/20/2023 Travel from Last 3 Months Immunizations Name [...] 70 11/15/2023 3:38 PM CDT Temperature 36.1 C (97 F) 11/15/2023 3:38 PM CDT Respiratory Rate 18 [...] age 21-65 05/21/2018 6 (Completed [facility]), 05/22/2011 Zoster (shingles) series for age 50+ (1 of 2) 2018 Lipids for age 45-75 02/10/2021 02/11/2016, 06/29/19 15 COVID-19 vaccine series ( season) 2023 11/28/2020, 06/19/2020 Influenza for age 50-64 11/22/2023 12/22/19 16, 01/01/2015, 01/16/2014, Additional history exists Pneumococcal series for age 6-64 Aged Out No longer eligible based on patient's age to complete this topic Medical Devices Implanted Type Area Peer Health Promoter Device Identifier Shelf Expiration Date Model / Serial / Lot Prosth Torq [id number] - [id number] Implanted:Qty: 1 on 05/20/2005 at [facility] Ent Implants Right: Ear [employer]US [employer] 61# / / Procedures Procedure Name Priority Date/Time Associated Diagnosis Comments LIPID PANEL W REFLEX MEASURED LDL Routine 02/11/2016 2:52 PM METAPHYSICS TEACHER Hyperlipidemia, unspecified hyperlipidemia type XR MAMMO RAVI BILAT SCREEN Routine 01/30/2016 9:52 AM METAPHYSICS TEACHER Visit for screening mammogram from Last 3 Months or Most Recently Relevant to Health Maintenance Results * (ABNORMAL) LIPID PANEL W REFLEX MEASURED LDL (02/11/2016 2:52 PM METAPHYSICS TEACHER) CHOLESTEROL,TOTAL 271(H) 100 - 199 mg/dL 02/11/2016 8:04 PM METAPHYSICS TEACHER [facility] TRIGLYCERIDES 178(H) <150 mg/dL 02/11/2016 8:04 PM METAPHYSICS TEACHER [facility] HDL CHOLESTEROL 49 >40 mg/dL 6 8:04 PM METAPHYSICS TEACHER [facility] NON-HDL CHOLESTEROL 222(H) <145 mg/dl 02/11/2016 8:04 PM METAPHYSICS TEACHER [facility] CHOL/HDL RATIO 5.53(H) <4.50 02/11/2016 8:04 PM METAPHYSICS TEACHER [facility] LDL CHOLESTEROL 186(H) <=130 mg/dL 02/11/2016 8:04 PM METAPHYSICS TEACHER [facility] PATIENT STATUS NON-FASTI NG 02/11/2016 8:04 PM METAPHYSICS TEACHER [facility] Blood BLOOD SPECIMEN / Unknown Venipuncture / Unknown 02/11/2016 2:52 PM METAPHYSICS TEACHER 02/11/2016 2:52 PM METAPHYSICS TEACHER [facility] [address] [place] [address], * XR MAMMO RAVI SCREEN BILAT (01/30/2016 9:52 AM METAPHYSICS TEACHER) Anatomical Region Laterality Modality BREASTS, Breast Left, Breast Right Bilateral Mammography Impressions 01/30/2016 11:17 AM METAPHYSICS TEACHER There is no radiographic evidence for malignancy. Recommend annual mammograms. A lay language report of this examination will be provided to the patient. MAMMOGRAM ASSESSMENT: ACR 2 Benign Narrative 01/30/2016 11:17 AM METAPHYSICS TEACHER XR MAMMO RAVI SCREEN BILAT [[id number]] CLINICAL HISTORY: This is an asymptomatic 45 y.o. patient. INDICATION FOR EXAM: Mammogram Screening. TECHNIQUE: CC & MLO views were obtained. This digital study was evaluated with the assistance of Computer-Aided Detection. Breast Tomosynthesis was used in interpretation. COMPARISON FILMS: Yes 02/10/15 [facility] 01/18/14 [facility] FINDINGS: Mammographically, the breast tissue has scattered fibroglandular densities. No suspicious masses or microcalcifications. Benign appearing calcifications within both breasts. Brandan Burleson MD MAMMO from Last 3 Months or Most Recently Relevant to Health Maintenance Advance Directives * Full Code (Latest Code Status on File) Date Activated Date Inactivated Comments 05/20/2005 7:01 AM 05/20/2005 4:28 PM Care Teams Customer Consultant Relationship Specialty Start Date End Date Pcp, No . PCP - General 03/24/20 Brandan Burleson MD Gynecology Obstetrics and Gynecology 09/19/15
--- OUTSIDE RECORDS SUMMARY | 2024-02-16 09:20 | XMS_ITS | Encounter Summary ---
Author Organization [facility] Address [address] [place] [address] Care Team Providers Care Director Professional Services Name Role Phone Roderick Morelos MD Unavailable [phone] Magno Wood MD Unavailable [phone] Sophie Ocasio AuD Unavailable [phone] Henny Rosales RIBBON WEAVER DRAWER IN DOBBY LOOM Unavailable Sharee Oliva RD Unavailable [phone] Kaykay Duarte DIRECTOR WORK Primary Care Provider Christiane Rodríguez MD Unavailable Jing Cadena RIBBON WEAVER DRILLING RIG OPERATOR Unavailable Radha Lopez [facility] Unavailable Luis A Escobedo MD Unavailable [phone] Geri Loza PA-C Unavailable [phone] Raina Patterson RIBBON WEAVER DRAWER IN DOBBY LOOM Unavailable [phone] Encounter Details Date Type Department Care Team (Late st Contact Info) Description 04/14/2023 [facility] Medical Advice [facility] [address] [place] [address] Tanya Larsen RN Social History [...] on file Legal 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 CLOTH EXAMINER HAND Gender Identity Not on file Sexual Orientation [...] as of this encounter Care Teams Director Professional Services Relationship Specialty [place] [address] [place] [address] PCP - General 10/15/22 Roderick Morelos MD [address] [place], [place] [address] Cardiovascular Disease 02/03/22 Magno Wood MD 420 [facility] [address] [place], [place] [address] Otolaryngology 02/21/22 Sophie Ocasio AuD 9[address] [place], [place] 5444[address] Thumb Sewer Audiology 02/21/22 Henny Rosales, RIBBON WEAVER DRAWER IN DOBBY LOOM [address] [place] [address] Assigned Heart and Vascular Provider 08/09/22 02/12/[address] [place], [place] 885135 Registered Dietitian Dietitian, Registered 09/02/22 Christiane Rodríguez MD 420 [facility] [address] [place], [place] 3307[address] Otolaryngology 11/12/22 Jing Cadena, RIBBON WEAVER DRILLING RIG OPERATOR 420 [facility] [address] [place], [place] [address] Clinical Nurse Specialist Anesthesiology 01/15/23 Radha Lopez, [facility] 9[address] [place], [place] [address] Pharmacist Pharmacist 01/16/23 Luis A Escobedo MD 420 [facility] [address] [place], [place] [address] Assigned Surgical Provider 02/07/23 04/15/23 Geri Loza PA-C 909 [place] [address] Assigned Surgical Provider 04/16/23 Raina Patterson, RIBBON WEAVER DRAWER IN DOBBY LOOM [address] [place] [address] Nurse Practitioner Cardiovascular Disease 05/11/23 documented as of this encounter
--- OUTSIDE RECORDS SUMMARY | 2024-02-16 09:21 | XMS_ITS | Encounter Summary ---
Author Organization [facility] Address [address] [place] [address] Care Team Providers Care Dialer Name Role Phone Roderick Morelos MD Unavailable [phone] Magno Wood MD Unavailable [phone] Sophie Ocasio AuD Unavailable Henny Rosales DIRECTIONAL DRILL OPERATOR WRAPPER STRIPPER Unavailable Sharee Oliva RD Unavailable Kaykay Duarte INSPECTOR PRECISION ASSEMBLY Primary Care Provider Christiane Rordíguez MD Unavailable Chely FernandezC Unavailable [phone] Jing Cadena APRN PHOSPHORIC ACID OPERATOR Unavailable [phone] Radha Lopez [facility] Unavailable Luis A Escobedo MD Unavailable [phone] Geri LozaC Unavailable [phone] Raina Patterson DIRECTIONAL DRILL OPERATOR WRAPPER STRIPPER Unavailable Encounter Details Date Type Department Care [...] on file Legal 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 OYSTER CULTURIST Gender Identity Not on file Sexual Orientation [...] documented as of this encounter Care Teams Dialer Relationship Specialty Start Date End Date Kaykay Duarte, INSPECTOR PRECISION ASSEMBLY [address] [place] [address] PCP - General 10/15/22 Roderick Morelos MD [address] [place] [address] Cardiovascular Disease 02/03/22 Magno Wood MD [address] [place] [address] Otolaryngology 02/21/22 Sophie Ocasio AuD [address] [place] [address] 963615 Machine Rigger Audiology 02/21/22 Henny Rosales, DIRECTIONAL DRILL OPERATOR WRAPPER STRIPPER [address] [place] [address] Assigned Heart and Vascular Provider 08/09/22 02/12/[address] [place], [place] 9[address]95 Registered Dietitian Dietitian, Registered 09/02/22 Christiane Rodríguez MD 420 [facility] [address] [place], [place] 84[address] Otolaryngology 11/12/22 Chely Fernandez PA-C [address] [place] [address] 494645 Assigned Surgical Provider 11/29/22 02/06/23 Jing Cadena APRN PHOSPHORIC ACID OPERATOR 420 [facility] [address] [place], [place] [address] Clinical Nurse Specialist Anesthesiology 01/15/23 Radha Lopez, [facility] [address] [place] [address] Pharmacist Pharmacist 01/16/23 Luis A Escobedo MD [address] [place] [address] 195 [place], [place] [address] Assigned Surgical Provider 02/07/23 04/15/23 Geri Loza PA-C [address] [place] [address] 568135 Assigned Surgical Provider 04/16/23 Raina Patterson APRN WRAPPER STRIPPER [address] [place] [address] Nurse Practitioner Cardiovascular Disease 05/11/23 documented as of this encounter
--- OUTSIDE RECORDS SUMMARY | 2024-02-16 09:21 | XMS_ITS | Encounter Summary ---
Author Organization [facility] Address [address] [place] [address] Care Team Providers Care Whirley Operator Name Role Phone Roderick Morelos MD Unavailable [phone] Magno Wood MD Unavailable [phone] Sophie Ocasio AuD Unavailable Henny Rosales RETAIL ASSISTANT STORE MANAGER SOUND EDITOR Unavailable Sharee Oliva RD Unavailable [phone] Kaykay Duarte BRIDGES SUPERVISOR Primary Care Provider Christiane Rodríguez MD Unavailable Jing aCdena RETAIL ASSISTANT STORE MANAGER INTERVENTION SPECIALIST Unavailable Radha Lopze [facility] Unavailable Luis A Escobedo MD Unavailable [phone] Geri Loza PA-C Unavailable [phone] Raina Patterson RETAIL ASSISTANT STORE MANAGER SOUND EDITOR Unavailable [phone] Encounter Details Date Type Department Care Team (Late st Contact Info) Description 03/31/2023 [facility] Advice [facility] [address] [place] [address] Tanya Larsen RN Social [...] on file Legal 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 COMMUNITY PLANNING TECHNICIAN Gender Identity Not on file Sexual Orientation [...] documented as of this encounter Care Teams Whirley Operator Relationship Specialty [place] [address] [address] PCP - General 10/15/22 Roderick Morelos MD [address] [place], [place] [address] Cardiovascular Disease 02/03/22 Magno Wood MD 420 [facility] 396 [place], [place] 6[address] Otolaryngology 02/21/22 Sophie Ocasio AuD 909 [place], [place] 472385 Cork Grinder Audiology 02/21/22 Henny Rosales, RETAIL ASSISTANT STORE MANAGER SOUND EDITOR [address] [place] [address] Assigned Heart and Vascular Provider 08/09/22 02/12/[address] [place], [place] [address] Registered Dietitian Dietitian, Registered 09/02/22 Christiane Rodríguez MD 420 [facility] 396 [place], [place] [address]295 Otolaryngology 11/12/22 Jing Cadena, RETAIL ASSISTANT STORE MANAGER INTERVENTION SPECIALIST 420 [facility] 450 [place], [place] [address]995 Clinical Nurse Specialist Anesthesiology 01/15/23 Radha Lopez, [facility] 909 [place], [place] [address] Pharmacist Pharmacist 01/16/23 Luis A Escobedo MD 420 [facility] 195 [place], [place] 833065 Assigned Surgical Provider 02/07/23 04/15/23 Geri Loza PA-C 909 [place] [address] Assigned Surgical Provider 04/16/23 Raina Patterson, RETAIL ASSISTANT STORE MANAGER SOUND EDITOR [address] [place] [address] Nurse Practitioner Cardiovascular Disease 05/11/23 documented as of this encounter
--- OUTSIDE RECORDS SUMMARY | 2024-02-16 09:21 | XMS_ITS | Encounter Summary ---
Author Organization [facility] Address [address] [place] [address] Care Team Providers Care Fixture Fabricator Repairer Name Role Phone Roderick Morelos MD Unavailable [phone] Magno Wood MD Unavailable [phone] Sophie Ocasio AuD Unavailable [phone] Henny Rosales WOOD FORM BUILDER TEXTILE DESIGNER Unavailable Sharee Oliva RD Unavailable [phone] Kaykay Duarte ROLL TUBE SETTER Primary Care Provider Christiane Rodríguez MD Unavailable Jing Cadena WOOD FORM BUILDER FINANCIAL ADVISOR TRAINEE Unavailable Radha Lopez [facility] Unavailable Luis A Escobedo MD Unavailable [phone] Geri Loza PA-C Unavailable [phone] Raina Patterson WOOD FORM BUILDER TEXTILE DESIGNER Unavailable [phone] Encounter Details Date Type Department Care Team (Late st Contact Info) Description 02/17/2023 [facility] Medical Advice [facility] Weight Management [facility] [address] [place] [address] Henny Arguello RN Social History [...] on file Legal 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 Gender Identity Not on file Sexual Orientation [...] documented as of this encounter Care Teams Fixture Fabricator Repairer Relationship Specialty Start Date End Date Kaykay Duarte ROLL TUBE SETTER [address] [place], [place] 7476[address] PCP - General 10/15/22 Roderick Morelos MD [address] [facility] [address] [place], [place] [address] Cardiovascular Disease 02/03/22 Magno Wood MD [address] [place] [address] 396 [place], [place] 13[address] Otolaryngology 02/21/22 Sophie Ocasio AuD [address] [place] [address] 648025 Lead Programmer Audiology 02/21/22 Henny Rosales, WOOD FORM BUILDER TEXTILE DESIGNER [address] [place] [address] Assigned Heart and Vascular Provider 08/09/22 02/12/[address]09 [place] [address] Registered Dietitian Dietitian, Registered 09/02/22 Christiane Rodríguez MD 420 [facility] 396 [place], [place] [address] Otolaryngology 11/12/22 Jing Cadena APRN FINANCIAL ADVISOR TRAINEE 420 [facility] 450 [place], [place] 5[address]65 Clinical Nurse Specialist Anesthesiology 01/15/23 Radha Lopez, [facility] 909 [place], [place] [address]185 Pharmacist Pharmacist 01/16/23 Luis A Escobedo MD 420 [facility] 195 [place] [address] Assigned Surgical Provider 02/07/23 04/15/23 Geri Loza PA-C 909 [place] [address] Assigned Surgical Provider 04/16/23 Raina Patterson APRN TEXTILE DESIGNER [address] [place] [address] Nurse Practitioner Cardiovascular Disease 05/11/23 documented as of this encounter
--- OUTSIDE RECORDS SUMMARY | 2024-02-16 09:21 | XMS_ITS | Encounter Summary ---
Author Organization [facility] Address [address] [place] [address] Care Team Providers Care Telecommunications Field Engineer Name Role Phone Roderick Morelos MD Unavailable Magno Wood MD Unavailable [phone] Sophie Ocasio AuD Unavailable Henny Rosales NETWORK MANAGER COMMUNICATION ANALYST Unavailable Sharee Oliva RD Unavailable [phone] Kaykay Duarte TRAVEL REGISTERED NURSE NICU Primary Care Provider Christiane Rodríguez MD Unavailable Chely FernandezC Unavailable [phone] Jing Cadnea APRN LINOTYPIST Unavailable Radha Lopez [facility] Unavailable Luis A Escobedo MD Unavailable [phone] Geri LozaC Unavailable [phone] Raina Patterson NETWORK MANAGER COMMUNICATION ANALYST Unavailable Encounter Details Date Type Department Care Team (Late st Contact Info) Description 01/26/2023 [facility] Medical Advice [facility] [place] [address] [facility] 4th [place] [address] Henny Arguello RN Social History [...] on file Legal 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 Gender Identity Not on file Sexual Orientation [...] [place] [address] [place] [address] PCP - General 10/15/22 Roderick Morelos MD [address] [place], [place] [address] Cardiovascular Disease 02/03/22 Magno Wood MD [address] [place] [address] 396 [place], [place] [address] Otolaryngology 02/21/22 Sophie Ocasio AuD [address] [place] [address] 760875 Wic Site Coordinator Audiology 02/21/22 Henny Rosales, NETWORK MANAGER COMMUNICATION ANALYST [address] [place] [address] Assigned Heart and Vascular Provider 08/09/22 02/12/[address] [place] [address] 527275 Registered Dietitian Dietitian, Registered 09/02/22 Christiane Rodríguez MD [address] [place] [address] 396 [place] [address] Otolaryngology 11/12/22 Chely Fernandez PA-C [address] [place] [address] 446455 Assigned Surgical Provider 11/29/22 02/06/23 Jing Cadena NETWORK MANAGER LINOTYPIST [address] [place] [address] 450 [place], [place] [address]695 Clinical Nurse Specialist Anesthesiology 01/15/23 Radha Lopez, [facility] [address] [place] [address] 368575 Pharmacist Pharmacist 01/16/23 Luis A Escobedo MD [address] [place] [address] 195 [place], [place] 403745 Assigned Surgical Provider 02/07/23 04/15/23 Geri Loza PA-C [address] [place] [address] 127835 Assigned Surgical Provider 04/16/23 Raina Patterson APRN [facility] [address] [place] [address] Nurse Practitioner Cardiovascular Disease 05/11/23 documented as of this encounter
--- OUTSIDE RECORDS SUMMARY | 2024-02-16 09:21 | XMS_ITS | Encounter Summary ---
Author Organization [place] Address [address] [place] [address] Care Team Providers Care Process Control Programmer Name Role Phone Roderick Morelos MD Unavailable [phone] Magno Wood MD Unavailable [phone] Sophie Ocasio AuD Unavailable [phone] Henny Rosales ADVERTISER GUEST REQUEST RUNNER Unavailable Sharee Oliva RD Unavailable [phone] Kaykay Duarte HALL WORKER Primary Care Provider Christiane Rodríguez MD Unavailable Jing Cadena ADVERTISER STEAMFITTER SUPERVISOR Unavailable [phone] Radha Lopez [facility] Unavailable Luis A Escobedo MD Unavailable [phone] Geri Loza PA-C Unavailable [phone] Raina Patterson ADVERTISER GUEST REQUEST RUNNER Unavailable [phone] Encounter Details Date Type Department Care Team (Late st Contact Info) Description 04/02/2023 [facility] Medical Advice [facility] [address] [place] [address] Tanya Larsen RN Social History [...] on file Legal 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 SUPPLY 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 Gender Identity Not on file Sexual [...] documented as of this encounter Care Teams Process Control Programmer Relationship Specialty [place] [address] [place] [address] PCP - General 10/15/22 Roderick Morelos MD [address] [place], [place] 126385 Cardiovascular Disease 02/03/22 Magno Wood MD 420 [facility] 396 [place], [place] 143645 Otolaryngology 02/21/22 Sophie Ocasio AuD 909 [place], [place] 925615 Civil Drafter Audiology 02/21/22 Henny Rosales, ADVERTISER GUEST REQUEST RUNNER [address] [place] [address] Assigned Heart and Vascular Provider 08/09/22 02/12/[address] 909 [place], [place] 351205 Registered Dietitian Dietitian, Registered 09/02/22 Christiane Rodríguez MD 420 [facility] 396 [place], [place] 856595 Otolaryngology 11/12/22 Jing Cadena, ADVERTISER STEAMFITTER SUPERVISOR 420 [facility] 450 [place], [place] 459135 Clinical Nurse Specialist Anesthesiology 01/15/23 Radha Lopez, [facility] 909 [place], [place] 451705 Pharmacist Pharmacist 01/16/23 Luis A Escobedo MD 420 [facility] 195 [place], [place] 876835 Assigned Surgical Provider 02/07/23 04/15/23 Geri Loza PA-C 909 [place] [address] Assigned Surgical Provider 04/16/23 Raina Patterson, ADVERTISER GUEST REQUEST RUNNER [address] [place] [address] Nurse Practitioner Cardiovascular Disease 05/11/23 documented as of this encounter
--- OUTSIDE RECORDS SUMMARY | 2024-02-16 09:21 | XMS_ITS | Encounter Summary ---
Author Organization [place] Address [address] [place] [address] Care Team Providers Care Strategies Analyst Name Role Phone Roderick Morelos MD Unavailable [phone] Magno Wood MD Unavailable [phone] Sophie Ocasio AuD Unavailable [phone] Henny Rosales MOTORCYCLE MAKER PERSONAL SECURITY SPECIALIST Unavailable Sharee Oliva RD Unavailable [phone] Kaykay Duarte EXCHANGE ARCHITECT Primary Care Provider Christiane Rodríguez MD Unavailable [phone] Chely FernandezC Unavailable [phone] Jing Cadena APRN PHYSICAL THERAPIST ASSISTANT Unavailable Radha Lopez [facility] Unavailable Luis A Escobedo MD Unavailable [phone] Geri LozaC Unavailable [phone] Raina Patterson MOTORCYCLE MAKER PERSONAL SECURITY SPECIALIST Unavailable Encounter Details Date Type Department Care Team (Late st Contact Info) Description 02/06/2023 [facility] [place] [place] [facility] Veteran 909 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 SEAM PRESSER Gender Identity Not on file Sexual Orientation [...] documented as of this encounter Care Teams Strategies Analyst Relationship Specialty [place] [address] [facility] [address] PCP - General 10/15/22 Roderick Morelos MD [address] [place], [place] 461855 Cardiovascular Disease 02/03/22 Magno Wood MD [address] [place] [address] 396 [place], [place] 953975 Otolaryngology 02/21/22 Sophie Ocasio AuD [address] [place] [address] 526125 Vegetable Tester Audiology 02/21/22 Henny Rosales, MOTORCYCLE MAKER PERSONAL SECURITY SPECIALIST [address] [place] [address] Assigned Heart and Vascular Provider 08/09/22 02/12/[address] [place] [address] 932655 Registered Dietitian Dietitian, Registered 09/02/22 Christiane Rodríguez MD [address] [place] [address] 396 [place] [address] Otolaryngology 11/12/22 Chely Fernandez PA-C [address] [place] [address] 696785 Assigned Surgical Provider 11/29/22 02/06/23 Jing Cadena, MOTORCYCLE MAKER PHYSICAL THERAPIST ASSISTANT [address] [place] [address] 450 [place], [place] 230075 Clinical Nurse Specialist Anesthesiology 01/15/23 Radha Lopez, [facility] [address] [place] [address] [phone] Pharmacist Pharmacist 01/16/23 Luis A Escobedo MD [address] [place] [address] 195 [place], [place] 975995 Assigned Surgical Provider 02/07/23 04/15/23 Geri Loza PA-C [address] [place] [address] 066595 Assigned Surgical Provider 04/16/23 Raina Patterson APRN [facility] [address] [place] [address] Nurse Practitioner Cardiovascular Disease 05/11/23 documented as of this encounter
--- OUTSIDE RECORDS SUMMARY | 2024-02-16 09:21 | XMS_ITS | Encounter Summary ---
Author Organization [place] Address [address] [place] [address] Care Team Providers Care Manager Council Name Role Phone Roderick Morelos MD Unavailable [phone] Magno Wood MD Unavailable Sophie Ocasio AuD Unavailable [phone] Henny Rosales PRO SHOP ATTENDANT AIR CONDITIONING MECHANIC INDUSTRIAL Unavailable Sharee Oliva RD Unavailable [phone] Kaykay Duarte SERVICE OFFICER Primary Care Provider Christiane Rodríguez MD Unavailable Jing Cadena PRO SHOP ATTENDANT FIRE ENGINE OPERATOR Unavailable Radha Lopez [facility] Unavailable Luis A Escobedo MD Unavailable [phone] Geri Loza PA-C Unavailable [phone] Raina Patterson PRO SHOP ATTENDANT AIR CONDITIONING MECHANIC INDUSTRIAL Unavailable [phone] Encounter Details Date Type Department Care Team (Late st Contact Info) Description 03/11/2023 My[facility] Medical Advice Initial Department Kang [...] on file Legal 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 AUTOMOTIVE 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 Gender Identity Not on file Sexual Orientation [...] as of this encounter Care Teams Manager Council Relationship Specialty [place] [address] [place] [address] [facility] [place] [address] PCP - General 10/15/22 Roderick Morelos MD [address] [place] [address] Cardiovascular Disease 02/03/22 Magno Wood MD [address] [place] [address] 044945 Otolaryngology 02/21/22 Sophie Ocasio, Nick [address] [place] [address] Rn Night Audiology 02/21/22 Henny Rosales, PRO SHOP ATTENDANT AIR CONDITIONING MECHANIC INDUSTRIAL [address] [place] [address] Assigned Heart and Vascular Provider 08/09/22 02/12/[address] 9 [place] [address] Registered Dietitian Dietitian, Registered 09/02/22 Christiane Rodríguez MD 420 [facility] 396 [place] [address] Otolaryngology 11/12/22 Jing Cadena APRN FIRE ENGINE OPERATOR 420 [facility] 450 [place] [address] Clinical Nurse Specialist Anesthesiology 01/15/23 Radha Lopez, [facility] [address] [place] [address] Pharmacist Pharmacist 01/16/23 Luis A Escobedo MD 420 [facility] 195 [place] [address] Assigned Surgical Provider 02/07/23 04/15/23 Geri Loza PA-C [address] [place] [address] Assigned Surgical Provider 04/16/23 Raina Patterson, [place] AIR CONDITIONING MECHANIC INDUSTRIAL [address] [place] 865525 Nurse Practitioner Cardiovascular Disease 05/11/23 documented as of this encounter
--- OUTSIDE RECORDS SUMMARY | 2024-02-16 09:21 | XMS_ITS | Encounter Summary ---
Author Organization [place] Address [address] [place] [address] Care Team Providers Care Insemination Worker Name Role Phone Roderick Morelos MD Unavailable [phone] Magno Wood MD Unavailable [phone] Sophie Ocasio AuD Unavailable Henny Rosales MALTED MILK SUPERVISOR SURGICAL SCHEDULER Unavailable [phone] Unavailable [phone] Kaykay Duarte TRANSITION OF CARE SPECIALIST Primary Care Provider [phone] Christiane Rodríguez MD Unavailable Chely FernandezC Unavailable [phone] Jing Cadena APRN HEAD STILL OPERATOR Unavailable Radha Lopez [facility] Unavailable Luis A Escobedo MD Unavailable [phone] Geri LozaC Unavailable [phone] Raina Patterson MALTED MILK SUPERVISOR SURGICAL SCHEDULER Unavailable [phone] Encounter Details Date Type Department Care Team (Late st Contact Info) Description 01/14/2023 My[facility] Medical Advice [facility] [place] [address] [facility] 4th [place] [address] Radha Dominguez, RN 420 [facility] 195 [place], [place] 914375 Social History Tobacco Use Types Packs/Day Years [...] on file Legal 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 Gender Identity Not on file Sexual Orientation [...] documented as of this encounter Care Teams Insemination Worker Relationship Specialty [place] [address] [place] [address] PCP - General 10/15/22 Roderick Morelos MD [address] [place] [address] Cardiovascular Disease 02/03/22 Magno Wood MD 420 [facility] 396 [place], [place] 898725 Otolaryngology 02/21/22 Sophie Ocasio, AuD [address] [place] [address] Animal Cytologist Audiology 02/21/22 Henny Rosales, MALTED MILK SUPERVISOR SURGICAL SCHEDULER [address] [place] [address] Assigned Heart and Vascular Provider 08/09/22 02/12/[address] [place] [address] 387655 Registered Dietitian Dietitian, Registered 09/02/22 Christiane Rodríguez MD 420 [facility] 396 [place], [place] 326695 Otolaryngology 11/12/22 Chely Fernandez PA-C [address] [place] [address] 604245 Assigned Surgical Provider 11/29/22 02/06/23 Jing Cadena, MALTED MILK SUPERVISOR HEAD STILL OPERATOR 420 [facility] 450 [place], [place] 283385 Clinical Nurse Specialist Anesthesiology 01/15/23 Radha Lopez, [facility] [address] [place] [address] 730115 Pharmacist Pharmacist 01/16/23 Luis A Escobedo MD 420 [facility] 195 [place], [place] 718855 Assigned Surgical Provider 02/07/23 04/15/23 Geri Loza PA-C 909 [place] [address] Assigned Surgical Provider 04/16/23 Raina Patterson APRN SURGICAL SCHEDULER [address] [place] [address] Nurse Practitioner Cardiovascular Disease 05/11/23 documented as of this encounter
--- OUTSIDE RECORDS SUMMARY | 2024-02-16 09:21 | XMS_ITS | Encounter Summary ---
Author Organization [place] Address [address] [facility] [place] [address] Care Team Providers Care Memorandum Statement Clerk Name Role Phone Roderick Morelos MD Unavailable [phone] Magno Wood MD Unavailable [phone] Sophie Ocasio AuD Unavailable Henny Rosales MANAGER FLIGHT OPERATIONS MAINTENANCE MACHINIST Unavailable Sharee Oliva RD Unavailable [phone] Kaykay Duarte TANYARD WORKER Primary Care Provider Christiane Rodríguez MD Unavailable Jing Cadena MANAGER FLIGHT OPERATIONS CYLINDER MACHINE OPERATOR Unavailable Radha Lopez [facility] Unavailable Luis A Escobedo MD Unavailable Geri Loza PA-C Unavailable Raina Patterson MANAGER FLIGHT OPERATIONS MAINTENANCE MACHINIST Unavailable Encounter Details Date Type Department Care Team (Late st Contact Info) Description 03/17/2023 MyC Medical Advice UR PREOP/PHASE II 2450 [place] [phone] Pearl Rocha RN Social History Tobacco Use Types Packs/Day [...] on file Legal 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 Gender Identity Not on file Sexual Orientation [...] documented as of this encounter Care Teams Memorandum Statement Clerk Relationship Specialty Start Date End Date Kaykay Duarte, TANYARD WORKER [address] [place] [address] PCP - General 10/15/22 Roderick Morelos MD [address] [place], [place] 913685 Cardiovascular Disease 02/03/22 Magno Wood MD 420 [facility] 396 [place], [place] [address]45 Otolaryngology 02/21/22 Sophie Ocasio AuD 909 [place], [place] 946205 Hardwood Faller Audiology 02/21/22 Henny Rosales, MANAGER FLIGHT OPERATIONS MAINTENANCE MACHINIST [address] [place] [address] Assigned Heart and Vascular Provider 08/09/22 02/12/[address]09 [place], [place] 819945 Registered Dietitian Dietitian, Registered 09/02/22 Christiane Rodríguez MD 420 [facility] 396 [place], [place] 089225 Otolaryngology 11/12/22 Jing Cadena, MANAGER FLIGHT OPERATIONS CYLINDER MACHINE OPERATOR 420 [facility] 450 [place], [place] 503275 Clinical Nurse Specialist Anesthesiology 01/15/23 Radha Lopez, [facility] 909 [place], [place] 922055 Pharmacist Pharmacist 01/16/23 Luis A Escobedo MD 420 [facility] 195 [place], [place] 363335 Assigned Surgical Provider 02/07/23 04/15/23 Geri Loza PA-C 909 [place] [address] Assigned Surgical Provider 04/16/23 Raina Patterson, MANAGER FLIGHT OPERATIONS MAINTENANCE MACHINIST [address] [place] [address] Nurse Practitioner Cardiovascular Disease 05/11/23 documented as of this encounter
--- OUTSIDE RECORDS SUMMARY | 2024-02-16 09:21 | XMS_ITS | Encounter Summary ---
Author Organization [place] Address [address] [place] [address] Care Team Providers Care Patient Support Partner Name Role Phone Roderick Morelos MD Unavailable Magno Wood MD Unavailable [phone] Sophie Ocasio AuD Unavailable [phone] Henny Rosales MANAGER [facility] [employer] [employer] SPECIALIST Unavailable Sharee Oliva RD Unavailable [phone] Kaykay Duarte DRAW FRAME TENDER Primary Care Provider [phone] Christiane Rodríguez MD Unavailable Chley FernandezC Unavailable [phone] Jing Cadena APRN APARTMENT LEASING CONSULTANT Unavailable Radha Lopez [facility] Unavailable Luis A Escobedo MD Unavailable [phone] Geri LozaC Unavailable [phone] Raina Patterson MANAGER [facility] [employer] SPECIALIST Unavailable [phone] Encounter Details Date Type Department Care Team (Late st Contact Info) Description 01/09/2023 MyC Medical Advice [facility] [place] [address] [facility] 4th [place] [address] Radha Dominguez, RN 420 [facility] 195 [place], [place] 567525 Social History Tobacco Use Types Packs/Day Years [...] on file Legal 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 AIRPLANE RIGGER Gender Identity Not on file Sexual Orientation [...] documented as of this encounter Care Teams Patient Support Partner Relationship Specialty [place] [address] [address] PCP - General 10/15/22 Roderick Morelos MD [address] [place] [address] Cardiovascular Disease 02/03/22 Magno Wood MD 420 [facility] 396 [place], [place] 803765 Otolaryngology 02/21/22 Sophie Ocasio, AuD [address] [place] [address] Hop Weigher Audiology 02/21/22 Henny Rosales, MANAGER [facility] SPECIALIST [address] [place] [address] Assigned Heart and Vascular Provider 08/09/22 02/12/[address] [place] [address] 986445 Registered Dietitian Dietitian, Registered 09/02/22 Christiane Rodríguez MD 420 [facility] 396 [place], [place] 869345 Otolaryngology 11/12/22 Chely Fernandez PA-C [address] [place] [address] 595825 Assigned Surgical Provider 11/29/22 02/06/23 Jing Cadena, MANAGER BANQUET APARTMENT LEASING CONSULTANT 420 [facility] 450 [place], [place] 797925 Clinical Nurse Specialist Anesthesiology 01/15/23 Radha Lopez, [facility] [address] [place] [address] 205615 Pharmacist Pharmacist 01/16/23 Luis A Escobedo MD 420 [facility] 195 [place], [place] 594605 Assigned Surgical Provider 02/07/23 04/15/23 Geri Loza PA-C 909 [place] [address] Assigned Surgical Provider 04/16/23 Raina Patterson APRN HEALTH PLAN SPECIALIST [address] [place] [address] Nurse Practitioner Cardiovascular Disease 05/11/23 documented as of this encounter
--- OUTSIDE RECORDS SUMMARY | 2024-02-16 09:21 | XMS_ITS | Encounter Summary ---
Author Organization [place] Address [address] [place] [address] Care Team Providers Care Bulk Loader Name Role Phone Roderick Morelos MD Unavailable [phone] Magno Wood MD Unavailable [phone] Sophie Ocasio AuD Unavailable Henny Rosales HEATER HELPER FORGE BLINDSTITCH HEMMER Unavailable Sharee [address]iva RD Unavailable Kaykay Duarte FISH TENDER Primary Care Provider [phone] Christiane Rodríguez MD Unavailable Jing Cadena HEATER HELPER FORGE PARAOPTOMETRIC Unavailable Radha Lopez [facility] Unavailable Luis A Escobedo MD Unavailable [phone] Geri Loza PA-C Unavailable [phone] Raina Patterson APRN BLINDSTITCH HEMMER Unavailable [phone] Encounter Details Date Type Department Care Team (Late st Contact Info) Description 03/21/2023 [facility] Weight Management [facility] [address] [place] [address] Luis A Escobedo MD 420 [facility] 195 [place], [place] 140745 Social History Tobacco Use Types Packs/Day Years [...] on file Legal 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 TEACHER Gender Identity Not on file Sexual Orientation [...] as of this encounter Care Teams Bulk Loader Relationship Specialty [place] [address] [place] [address] PCP - General 10/15/22 Roderick Morelos MD [address] [place], [place] 422715 Cardiovascular Disease 02/03/22 Magno Wood MD 420 [facility] 396 [place], [place] 138295 Otolaryngology 02/21/22 Sophie Ocasio, AuD [address] [place] [address] [phone] Core Shaper Top Audiology 02/21/22 Henny Rosales, HEATER HELPER FORGE BLINDSTITCH HEMMER [address] [place] [address] Assigned Heart and Vascular Provider 08/09/22 02/12/[address] [place] [address] 727345 Registered Dietitian Dietitian, Registered 09/02/22 Christiane Rodríguez MD [address] [place] [address] 396 [place], [place] 919085 Otolaryngology 11/12/22 Jing Cadena, HEATER HELPER FORGE PARAOPTOMETRIC 420 [facility] 450 [place], [place] 845095 Clinical Nurse Specialist Anesthesiology 01/15/23 Radha Lopez, [facility] [address] [place] [address] 676225 Pharmacist Pharmacist 01/16/23 Luis A Escobedo MD [address] [place] [address] 195 [place], [place] 734035 Assigned Surgical Provider 02/07/23 04/15/23 Geri Loza PA-C 9 [place], [place] 907045 Assigned Surgical Provider 04/16/23 Raina Patterson, HEATER HELPER FORGE BLINDSTITCH HEMMER [address] [place] [address] Nurse Practitioner Cardiovascular Disease 05/11/23 documented as of this encounter
--- OUTSIDE RECORDS SUMMARY | 2024-02-16 09:21 | XMS_ITS | Encounter Summary ---
Author Organization [facility] Address [address] [place] [address] Care Team Providers Care Ekg Technician Name Role Phone Roderick Morelos MD Unavailable [phone] Magno Wood MD Unavailable [phone] Sophie Ocasio AuD Unavailable Henny Rosales FOOD PREPARATION KITCHEN AIDE DESIGN TECHNOLOGY TEACHER Unavailable Sharee [address]iva RD Unavailable [phone] Kaykay Duarte MEDICAL ASSISTANT OB GYN Primary Care Provider Christiane Rodríguez MD Unavailable Chely FernandezC Unavailable [phone] Jing Cadena APRN DOUBLE END TRIMMER Unavailable Radha Lopez [facility] Unavailable Luis A Escobedo MD Unavailable [phone] Geri LozaC Unavailable [phone] Raina Patterson APRN DESIGN TECHNOLOGY TEACHER Unavailable Encounter Details Date Type Department Care Team (Late st Contact Info) Description 01/26/2023 Telephone [facility] Management [facility] [address] 4th [place] [address] Geri Loza PA-C [address] [place] [address] Social History Tobacco Use Types Packs/Day Years [...] on file Legal 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 DRY CAN TENDER Gender Identity Not on file Sexual Orientation [...] 01/26/2023 at 9:59 AM by Tamera Bhardwaj CAN TENDER documented in this encounter Plan of [...] as of this encounter Care Teams Ekg Technician Relationship Specialty [place] [address] [place] [address] PCP - General 10/15/22 Roderick Morelos MD [address] [place] [address] Cardiovascular Disease 02/03/22 Magno Wood MD [address] [place] [address] 797185 Otolaryngology 02/21/22 Sophie Ocasio AuD [address] [place] [address] Pig Conveyor Operator Audiology 02/21/22 Henny Rosales APRN DESIGN TECHNOLOGY TEACHER [address] [place] [address] Assigned Heart and Vascular Provider 08/09/22 02/12/[address] [place] [address] 836105 Registered Dietitian Dietitian, Registered 09/02/22 Christiane Rodríguez MD [address] [place] [address] 853875 Otolaryngology 11/12/22 Chely Fernandez PA-C [address] [place] [address] [phone] Assigned Surgical Provider 11/29/22 02/06/23 Jing Cadena APRN DOUBLE END TRIMMER [address] [place] [address] Clinical Nurse Specialist Anesthesiology 01/15/23 Radha Lopez, [facility] [address] [place] [address] Pharmacist Pharmacist 01/16/23 Luis A Escobedo MD [address] [place] [address] 195 [place], [place] 414385 Assigned Surgical Provider 02/07/23 04/15/23 Geri Loza PA-C [address] [place] [address] [phone] Assigned Surgical Provider 04/16/23 Raina Patterson APRN DESIGN TECHNOLOGY TEACHER [address] [place] 103975 Nurse Practitioner Cardiovascular Disease 05/11/23 documented as of this encounter
--- OUTSIDE RECORDS SUMMARY | 2024-02-16 09:21 | XMS_ITS | Encounter Summary ---
Author Organization [place] Address [address] [place] [address] Care Team Providers Care Assistant Administrator Name Role Phone Roderick Morelos MD Unavailable [phone] Magno Wood MD Unavailable [phone] Sophie Ocasio AuD Unavailable Henny Rosales AUTOMATIC CAR WASH ATTENDANT LAB PACK CHEMIST Unavailable Sharee Oliva RD Unavailable [phone] Kaykay Duarte METAL SPRAYER PRODUCTION Primary Care Provider [phone] Christiane Rodríguez MD Unavailable Jing Cadena AUTOMATIC CAR WASH ATTENDANT MANUFACTURING ENGINEERING INTERN Unavailable Radha Lopez 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 Gender Identity Not on file Sexual Orientation [...] documented as of this encounter Care Teams Assistant Administrator Relationship Specialty Start Date End Date Kaykay Duarte, METAL SPRAYER PRODUCTION [address] [place] [address] PCP - General 10/15/22 Roderick Morelos MD [address] [place], [place] 4[address] Cardiovascular Disease 02/03/22 Magno Wood MD 420 [facility] 396 [place], [place] 9[address]65 Otolaryngology 02/21/22 Sophie Ocasio AuD 909 [place], [place] 333195 Collections Officer Audiology 02/21/22 Henny Rosales, AUTOMATIC CAR WASH ATTENDANT LAB PACK CHEMIST [address] [place] [address] Assigned Heart and Vascular Provider 08/09/22 02/12/[address] [place], [place] 961795 Registered Dietitian Dietitian, Registered 09/02/22 Christiane Rodríguez MD 420 [facility] 396 [place], [place] 827315 Otolaryngology 11/12/22 Jing Cadena, AUTOMATIC CAR WASH ATTENDANT MANUFACTURING ENGINEERING INTERN 420 [facility] 450 [place], [place] 247095 Clinical Nurse Specialist Anesthesiology 01/15/23 Radha Lopez, [facility] 909 [place], [place] 430355 Pharmacist Pharmacist 01/16/23 Luis A Escobedo MD 420 [facility] 195 [place], [place] 707345 Assigned Surgical Provider 02/07/23 04/15/23 Geri Loza PA-C 909 [place] [address] Assigned Surgical Provider 04/16/23 Raina Patterson, AUTOMATIC CAR WASH ATTENDANT LAB PACK CHEMIST [address] [place] [address] Nurse Practitioner Cardiovascular Disease 05/11/23 documented as of this encounter
--- OUTSIDE RECORDS SUMMARY | 2024-02-16 09:21 | XMS_ITS | Encounter Summary ---
Author Organization [place] Address [address] [place] [address] 244[address] Care Team Providers Care Chief Program Officer Name Role Phone Roderick Morelos MD Unavailable [phone] Magno Wood MD Unavailable [phone] Sophie Ocasio AuD Unavailable [phone] Henny Rosales SURVEYOR HELPER SHOCK ABSORPTION FLOOR LAYER Unavailable Sharee Oliva RD Unavailable [phone] Kaykay Duarte BUNG REMOVER Primary Care Provider Christiane Rodríguez MD Unavailable Chely FernandezC Unavailable [phone] Jing Cadena APRN DOG LICENSE OFFICER SUPERVISOR Unavailable [phone] Radha Lopez [facility] Unavailable Luis A Escobedo MD Unavailable [phone] Geri LozaC Unavailable [phone] Raina Patterson SURVEYOR HELPER SHOCK ABSORPTION FLOOR LAYER Unavailable Encounter Details Date Type Department Care [...] on file Legal 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 Gender Identity Not on file Sexual Orientation [...] as of this encounter Care Teams Chief Program Officer Relationship Specialty Start Date End Date Kaykay Duarte, BUNG REMOVER [address] [place] [address] PCP - General 10/15/22 Roderick Morelos MD [address] [place] 503135 Cardiovascular Disease 02/03/22 Magno Wood MD [address] [place] [address] 986095 Otolaryngology 02/21/22 Sophie Ocasio AuD [address] [place] [address] 255915 Middle [employer] Humanities Teacher Audiology 02/21/22 Henny Rosales, SURVEYOR HELPER SHOCK ABSORPTION FLOOR LAYER [address] [place] [address] Assigned Heart and Vascular Provider 08/09/22 02/12/[address] 9 [place], [place] 952995 Registered Dietitian Dietitian, Registered 09/02/22 Christiane Rodríguez MD 420 [facility] 396 [place], [place] 898915 Otolaryngology 11/12/22 Chely Fernandez PA-C [address] [place] [address] 371465 Assigned Surgical Provider 11/29/22 02/06/23 Jing Cadena APRN DOG LICENSE OFFICER SUPERVISOR 420 [facility] 450 [place], [place] 459195 Clinical Nurse Specialist Anesthesiology 01/15/23 Radha Lopez, [facility] [address] [place] [address] 477665 Pharmacist Pharmacist 01/16/23 Luis A Escobedo MD [address] [place] [address] 195 [place], [place] 557545 Assigned Surgical Provider 02/07/23 04/15/23 Geri Loza PA-C [address] [place] [address] 100635 Assigned Surgical Provider 04/16/23 Raina Patterson APRN SHOCK ABSORPTION FLOOR LAYER [address] [place] [address] Nurse Practitioner Cardiovascular Disease 05/11/23 documented as of this encounter
--- OUTSIDE RECORDS SUMMARY | 2024-02-16 09:21 | XMS_ITS | Encounter Summary ---
Author Organization [place] Address [address] [place] [address] 44[address] Care Team Providers Care Radio Control Crane Operator Name Role Phone Roderick Morelos MD Unavailable Magno Wood MD Unavailable [phone] Sophie Ocasio AuD Unavailable Henny Rosales MICROSOFT INFRASTRUCTURE CONSULTANT DRESS MARKER Unavailable Sharee Oliva RD Unavailable Kaykay Duarte CARGO ROUTER Primary Care Provider Christiane Rodríguez MD Unavailable [phone] Chely FernandezC Unavailable [phone] Jing Cadena APRN SATELLITE TV INSTALLER Unavailable Radha Lopez [facility] Unavailable Luis A Escobedo MD Unavailable [phone] Geri LozaC Unavailable [phone] Raina Patterson MICROSOFT INFRASTRUCTURE CONSULTANT DRESS MARKER Unavailable [phone] Encounter Details Date Type Department Care Team (Late st Contact Info) Description 01/21/2023 [facility] Medical Advice [facility] [place] 716919 [facility] 4th [place] [address] Radha Dominguez, RN 420 [facility] 195 [place], [place] 764105 Social History Tobacco Use Types Packs/Day Years [...] on file Legal 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 PACKING ROOM SUPERVISOR Gender Identity Not on file Sexual Orientation [...] documented as of this encounter Care Teams Radio Control Crane Operator Relationship Specialty [place] [address] [place] [address] PCP - General 10/15/22 Roderick Morelos MD [address] [place] [address] Cardiovascular Disease 02/03/22 Magno Wood MD 420 [facility] 396 [place], [place] 735375 Otolaryngology 02/21/22 Sophie Ocasio, AuD [address] [place] [address] Procurement Officer Audiology 02/21/22 Henny Rosales, MICROSOFT INFRASTRUCTURE CONSULTANT DRESS MARKER [address] [place] [address] Assigned Heart and Vascular Provider 08/09/22 02/12/[address] [place] [address] [phone] Registered Dietitian Dietitian, Registered 09/02/22 Christiane Rodríguez MD 420 [facility] 396 [place], [place] 07[address]25 Otolaryngology 11/12/22 Chely Fernandez PA-C [address] [place] [address] 758835 Assigned Surgical Provider 11/29/22 02/06/23 Jing Cadena, MICROSOFT INFRASTRUCTURE CONSULTANT SATELLITE TV INSTALLER 420 [facility] 450 [place], [place] 021925 Clinical Nurse Specialist Anesthesiology 01/15/23 Radha Lopez, [facility] [address] [place] [address] [phone] Pharmacist Pharmacist 01/16/23 Luis A Escobedo MD 420 [facility] 195 [place], [place] 433325 Assigned Surgical Provider 02/07/23 04/15/23 Geri Loza PA-C 909 [place] [address] Assigned Surgical Provider 04/16/23 Raina Patterson APRN DRESS MARKER [address] [place] [address] Nurse Practitioner Cardiovascular Disease 05/11/23 documented as of this encounter
--- OUTSIDE RECORDS SUMMARY | 2024-02-16 09:21 | XMS_ITS | Encounter Summary ---
Author Organization [facility] Address [address] [place] [address] Care Team Providers Care Occupational Health Nurse Name Role Phone Roderick Morelos MD Unavailable [phone] Magno Wood MD Unavailable [phone] Sophie Ocasio AuD Unavailable Henny Rosales IT NETWORK ADMINISTRATOR PROMOTIONS ASSISTANT SALES MARKETING Unavailable Sharee Oliva RD Unavailable [phone] Kaykay Duarte SNOWBOARDER Primary Care Provider Christiane Rodríguez MD Unavailable Chely FernandezC Unavailable [phone] Jing Cadena APRN BEVERAGE SALES CONSULTANT Unavailable Radha Lopez [facility] Unavailable Luis A Escobedo MD Unavailable [phone] Geri LozaC Unavailable [phone] Raina Patterson IT NETWORK ADMINISTRATOR PROMOTIONS ASSISTANT SALES MARKETING Unavailable Encounter Details Date Type Department Care Team (Late st Contact Info) Description 01/21/2023 MyC Medical Advice [facility] [place] [id number] [facility] 4th [place] [address] Radha Dominguez, RN 420 [facility] 195 [place], [place] 764685 Social History Tobacco Use Types Packs/Day Years [...] on file Legal 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 CREDIT RISK ANALYST Gender Identity Not on file Sexual Orientation [...] documented as of this encounter Care Teams Occupational Health Nurse Relationship Specialty [place] [address] [place] [place] [address] PCP - General 10/15/22 Roderick Morelos MD [address] [place] [address] Cardiovascular Disease 02/03/22 Magno Wood MD 420 [facility] 396 [place], [place] 735035 Otolaryngology 02/21/22 Sophie Ocasio, AuD [address] [place] [address] Supervisor Grinding Audiology 02/21/22 Henny Rosales, IT NETWORK ADMINISTRATOR PROMOTIONS ASSISTANT SALES MARKETING [address] [place] [address] Assigned Heart and Vascular Provider 08/09/22 02/12/[address] [place] [address] [phone] Registered Dietitian Dietitian, Registered 09/02/22 Christiane Rodríguez MD 420 [facility] 396 [place], [place] 370495 Otolaryngology 11/12/22 Chely Fernandez PA-C [address] [place] [address] 014305 Assigned Surgical Provider 11/29/22 02/06/23 Jing Cadena, IT NETWORK ADMINISTRATOR BEVERAGE SALES CONSULTANT 420 [facility] 450 [place], [place] 8[address]995 Clinical Nurse Specialist Anesthesiology 01/15/23 Radha Lopez, [facility] [address] [place] [address] [phone] Pharmacist Pharmacist 01/16/23 Luis A Escobedo MD 420 [facility] 195 [place], [place] 041855 Assigned Surgical Provider 02/07/23 04/15/23 Geri Loza PA-C 909 [place] [address] Assigned Surgical Provider 04/16/23 Raina Patterson APRN PROMOTIONS ASSISTANT SALES MARKETING [address] [place] [address] Nurse Practitioner Cardiovascular Disease 05/11/23 documented as of this encounter
--- OUTSIDE RECORDS SUMMARY | 2024-02-16 09:21 | XMS_ITS | Encounter Summary ---
Author Organization [place] Address [address] [place] [address] 85363 Care Team Providers Care Director Clinical Applications Name Role Phone Roderick Morelos MD Unavailable [phone] Magno Wood MD Unavailable [phone] Sophie Ocasio AuD Unavailable Henny Rosales DISTRICT LEADER SET UP AND CHARGER Unavailable Sharee Oliva RD Unavailable [phone] Kaykay Duarte BEHAVIORAL SPECIALIST Primary Care Provider [phone] Christiane Rodríguez MD Unavailable Chely FernandezC Unavailable [phone] Jing Cadena APRN CAR JOCKEY Unavailable Radha Lopez [facility] Unavailable Luis A Escobedo MD Unavailable [phone] Geri LozaC Unavailable [phone] Raina Patterson DISTRICT LEADER SET UP AND CHARGER Unavailable Encounter Details Date Type Department Care Team (Late st Contact Info) Description 01/09/2023 MyC Medical Advice [facility] [place] 429579 [facility] 4th [place] [address] Radha Dominguez, RN 420 [facility] 195 [place], [place] 080235 Social History Tobacco Use Types Packs/Day Years [...] on file Legal 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 APPRENTICESHIP CONSULTANT Gender Identity Not on file Sexual Orientation [...] as of this encounter Care Teams Director Clinical Applications Relationship Specialty [place] [address] [place] [address] PCP - General 10/15/22 Roderick Morelos MD [address] [place] [address] Cardiovascular Disease 02/03/22 Magno Wood MD 420 [facility] 396 [place], [place] 0[address]25 Otolaryngology 02/21/22 Sophie Ocasio, AuD [address] [place] [address] Corsets Salesperson Audiology 02/21/22 Henny Rosales, DISTRICT LEADER SET UP AND CHARGER [address] [place] [address] Assigned Heart and Vascular Provider 08/09/22 02/12/[address] [place] [address] [phone] Registered Dietitian Dietitian, Registered 09/02/22 Christiane Rodríguez MD 420 [facility] 396 [place], [place] 807925 Otolaryngology 11/12/22 Chely Fernandez PA-C [address] [place] [address] 036545 Assigned Surgical Provider 11/29/22 02/06/23 Jing Cadena, DISTRICT LEADER CAR JOCKEY 420 [facility] 450 [place], [place] 081395 Clinical Nurse Specialist Anesthesiology 01/15/23 Radha Lopez, [facility] [address] [place] [address] 537615 Pharmacist Pharmacist 01/16/23 Luis A Escobedo MD 420 [facility] 195 [place], [place] 939905 Assigned Surgical Provider 02/07/23 04/15/23 Geri Loza PA-C 909 [place] [address] Assigned Surgical Provider 04/16/23 Raina Patterson APRN SET UP AND CHARGER [address] [place] [address] Nurse Practitioner Cardiovascular Disease 05/11/23 documented as of this encounter
--- OUTSIDE RECORDS SUMMARY | 2024-02-16 09:21 | XMS_ITS | Encounter Summary ---
Author Organization [place] Address [address] [place] [address] 42067 Care Team Providers Care Fondant Cooker Name Role Phone Roderick Morelos MD Unavailable [phone] Magno Wood MD Unavailable [phone] Sophie Ocasio AuD Unavailable Henny Rosales SAMPLE MAKER PLASTIC PRINTER Unavailable Sharee Oliva RD Unavailable [phone] Kaykay Duarte BUSINESS COMMUNICATIONS INSTRUCTOR Primary Care Provider [phone] Christiane Rodríguez MD Unavailable Jing Cadena SAMPLE MAKER INSULATION CUPOLA CHARGER Unavailable Radha Lopez [facility] Unavailable Luis A Escobedo MD Unavailable [phone] Geri Loza PA-C Unavailable [phone] Raina Patterson SAMPLE MAKER PLASTIC PRINTER Unavailable [phone] Encounter Details Date Type Department Care Team (Late st Contact Info) Description 02/18/2023 [facility] Preoperative Assessment [address] 5th [place] [address] Nikky Babb RN Social History Tobacco Use Types Packs/Day [...] on file Legal 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 PILLOWCASE CUTTER Gender Identity Not on file Sexual Orientation [...] documented as of this encounter Care Teams Fondant Cooker Relationship Specialty Start Date End Date Kaykay Duarte, BUSINESS COMMUNICATIONS INSTRUCTOR [address] [place] [address] [facility] [address] PCP - General 10/15/22 Roderick Morelos MD [address] [place] [address] Cardiovascular Disease 02/03/22 Magno Wood MD 420 [facility] 396 [place], [place] 0[address]45 Otolaryngology 02/21/22 Sophie Ocasio, Nick 909 [place], [place] 612035 Professional Wrestler Audiology 02/21/22 Henny Rosales, SAMPLE MAKER PLASTIC PRINTER [address] [place] [address] Assigned Heart and Vascular Provider 08/09/22 02/12/[address] 909 [place], [place] 280475 Registered Dietitian Dietitian, Registered 09/02/22 Christiane Rodríguez MD 420 [facility] 396 [place], [place] 988645 Otolaryngology 11/12/22 Jing Cadena, SAMPLE MAKER INSULATION CUPOLA CHARGER 420 [facility] 450 [place], [place] 701885 Clinical Nurse Specialist Anesthesiology 01/15/23 Radha Lopez, [facility] 909 [place], [place] 264515 Pharmacist Pharmacist 01/16/23 Luis A Escobedo MD 420 [facility] 195 [place], [place] 054925 Assigned Surgical Provider 02/07/23 04/15/23 Geri Loza PA-C 909 [place], [place] 181265 Assigned Surgical Provider 04/16/23 Raina Patterson, SAMPLE MAKER PLASTIC PRINTER [address] [place] [address] Nurse Practitioner Cardiovascular Disease 05/11/23 documented as of this encounter
--- OUTSIDE RECORDS SUMMARY | 2024-02-16 09:21 | XMS_ITS | Encounter Summary ---
Author Organization [place] Address [address] [place] [address] 8[address]25 Care Team Providers Care Typesetter Apprentice Name Role Phone Roderick Morelos MD Unavailable [phone] Magno Wood MD Unavailable [phone] Sophie Ocasio AuD Unavailable Henny Rosales CIDER PRESS OPERATOR PAIN MANAGEMENT SPECIALIST Unavailable Sharee Oliva RD Unavailable [phone] Kaykay Duarte DEPUTY CHIEF SHERIFF Primary Care Provider Christiane Rodríguez MD Unavailable Jing Cadena CIDER PRESS OPERATOR [facility] SERV[facility] CENTER DIRECTOR Unavailable Radha Lopez [facility] Unavailable Luis A Escobedo MD Unavailable [phone] Geri Loza PA-C Unavailable [phone] Raina Patterson CIDER PRESS OPERATOR PAIN MANAGEMENT SPECIALIST Unavailable [phone] Encounter Details Date Type Department Care Team [...] on file Legal 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 PILE DRIVER Gender Identity Not on file Sexual Orientation [...] documented as of this encounter Care Teams Typesetter Apprentice Relationship Specialty [place] [address] [address] [facility] [place] [place] [address] PCP - General 10/15/22 Roderick Morelos MD [address] [place] [address] Cardiovascular Disease 02/03/22 Magno Wood MD [address] [place] [address] 023175 Otolaryngology 02/21/22 Sophie Ocasio, Nick [address] [place] [address] Optometrist Audiology 02/21/22 Henny Rosales, CIDER PRESS OPERATOR PAIN MANAGEMENT SPECIALIST [address] [place] [address] Assigned Heart and Vascular Provider 08/09/22 02/12/[address] 9 [place] [address] Registered Dietitian Dietitian, Registered 09/02/22 Christiane Rodríguez MD 420 [facility] 396 [place] [address] Otolaryngology 11/12/22 Jing Cadena APRN NEIGHBORHOOD SERVICE CENTER DIRECTOR 420 [facility] 450 [place] [address] Clinical Nurse Specialist Anesthesiology 01/15/23 Radha Lopez, [facility] [address] [place] [address] Pharmacist Pharmacist 01/16/23 Luis A Escobedo MD 420 [facility] 195 [place] [address] Assigned Surgical Provider 02/07/23 04/15/23 Geri Loza PA-C [address] [place] [address] 67[address] Assigned Surgical Provider 04/16/23 Raina Patterson, GINA PAIN MANAGEMENT SPECIALIST [address] [place] 441675 Nurse Practitioner Cardiovascular Disease 05/11/23 documented as of this encounter
--- OUTSIDE RECORDS SUMMARY | 2024-02-16 09:21 | XMS_ITS | Encounter Summary ---
Author Organization [facility] Address [address] [place] [address] 9[address] Care Team Providers Care Velvet Steamer Name Role Phone Roderick Morelos MD Unavailable [phone] Magno Wood MD Unavailable [phone] Sophie Ocasio AuD Unavailable Henny Rosales SUPERINTENDENT SERVICE CRACKER AND COOKIE MACHINE OPERATOR Unavailable Sharee Oliva RD Unavailable [phone] Kaykay Duarte AUTOMOBILE PARTS ASSEMBLER Primary Care Provider [phone] Christiane Rodríguez MD Unavailable Chely FernandezC Unavailable [phone] Jing Cadena APRN SECTION MAINTAINER Unavailable Radha Lopez [facility] Unavailable Luis A Escobedo MD Unavailable [phone] Geri LozaC Unavailable [phone] Raina Patterson APRN CRACKER AND COOKIE MACHINE OPERATOR Unavailable Encounter Details Date Type Department Care Team (Late st Contact Info) Description 01/15/[address] [facility] [address] [place] [address] Geri Loza PA-C [address] [place] [address] 20[address] Social History Tobacco Use Types Packs/Day Years [...] on file Legal 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 POLYMERIZATION ENGINEER Gender Identity Not on file Sexual Orientation Not on file documented as of this encounter Miscellaneous Notes * Telephone Encounter - Radha Lopez RPH - 01/20/2023 9:57 AM CDT Clinic Coordinators: Please call this patient and offer 2 or 2:30 pm on ThursdayFebruary 11 with me for pre-surgery appointment. Thank you. Radha Lopez, PharmD, BCACP Medication Therapy Management Pharmacist [facility] * Telephone Encounter - Tamera Bhardwaj - 01/15/2023 3:08 PM CDT Reason for Call: Other appointment Detailed comments: patient needs New MTM visit before her 03/03 sleeve surgery, no [...] documented as of this encounter Care Teams Velvet Steamer Relationship Specialty Start Date End Date Kaykay Duarte, AUTOMOBILE PARTS ASSEMBLER [address] [place] [address] PCP - General 10/15/22 Roderick Morelos MD [address] [place], [place] 0[address]885 Cardiovascular Disease 02/03/22 Magno Wood MD [address] [place] [address] 396 [place], [place] 880835 Otolaryngology 02/21/22 Sophie Ocasio AuD [address] [place] [address] [phone] Power House Engineer Audiology 02/21/22 Henny Rosales APRN CRACKER AND COOKIE MACHINE OPERATOR [address] [place] [address] Assigned Heart and Vascular Provider 08/09/22 02/12/[address] [place] [address] [phone] Registered Dietitian Dietitian, Registered 09/02/22 Christiane Rodríguez MD [address] [place] [address] 422145 Otolaryngology 11/12/22 Chely Fernandez PA-C 909 [place], [place] 742775 Assigned Surgical Provider 11/29/22 02/06/23 Jing Cadena APRN SECTION MAINTAINER 420 [facility] 450 [place] [address] Clinical Nurse Specialist Anesthesiology 01/15/23 Radha Lopez, [facility] [address] [place] [address] [phone] Pharmacist Pharmacist 01/16/23 Luis A Escobedo MD 420 [facility] 195 [place], [place] 443295 Assigned Surgical Provider 02/07/23 04/15/23 Geri Loza PA-C [address] [place] [address] 788325 Assigned Surgical Provider 04/16/23 Raina Patterson APRN CRACKER AND COOKIE MACHINE OPERATOR [address] [facility] [address] [place] 320025 Nurse Practitioner Cardiovascular Disease 05/11/23 documented as of this encounter
--- OUTSIDE RECORDS SUMMARY | 2024-02-16 09:21 | XMS_ITS | Encounter Summary ---
Author Organization [place] Address [address] [place] [address] Care Team Providers Care Elementary School Teacher Name Role Phone Roderick Morelos MD Unavailable [phone] Magno Wood MD Unavailable [phone] Sophie Ocasio AuD Unavailable Henny Rosales HOUSE SHORER FINISHER POLISHER Unavailable Sharee Oliva RD Unavailable [phone] Kaykay Duarte FREIGHT RECEIVER Primary Care Provider [phone] Christiane Rodríguez MD Unavailable [phone] Jing Cadena HOUSE SHORER CASE MONITOR Unavailable Radha Lopez [facility] Unavailable [phone] Luis A Escobedo MD Unavailable [phone] Geri Loza PA-C Unavailable [phone] Raina Patterson HOUSE SHORER FINISHER POLISHER Unavailable [phone] Encounter Details Date Type Department Care Team (Late st Contact Info) Description 02/17/2023 [facility] [place] [facility] [address]th [place] [address] Henny Arguello RN Social History [...] on file Legal 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 Gender Identity Not on file Sexual Orientation [...] as of this encounter Care Teams Elementary School Teacher Relationship Specialty Start Date End Date Kaykay Duarte FREIGHT RECEIVER [address] [place], [place] [address] PCP - General 10/15/22 Roderick Morelos MD [address] [facility] [address] [place], [place] [address] Cardiovascular Disease 02/03/22 Magno Wood MD [address] [place] [address] 396 [place], [place] 866105 Otolaryngology 02/21/22 Sophie Ocasio AuD [address] [place] [address] 893355 Soil Conservationist Audiology 02/21/22 Henny Rosales, HOUSE SHORER FINISHER POLISHER [address] [place] [address] Assigned Heart and Vascular Provider 08/09/22 02/12/[address] 909 [place] [address] Registered Dietitian Dietitian, Registered 09/02/22 Christiane Rodríguez MD 420 [facility] 396 [place], [place] 685065 Otolaryngology 11/12/22 Jing Cadena APRN CASE MONITOR 420 [facility] 450 [place], [place] 088175 Clinical Nurse Specialist Anesthesiology 01/15/23 Radha Lopez, [facility] 909 [place], [place] 897795 Pharmacist Pharmacist 01/16/23 Luis A Escobedo MD 420 [facility] 195 [place] [address] Assigned Surgical Provider 02/07/23 04/15/23 Geri Loza PA-C 909 [place] [address] Assigned Surgical Provider 04/16/23 Raina Patterson APRN FINISHER POLISHER [address] [place] [address] Nurse Practitioner Cardiovascular Disease 05/11/23 documented as of this encounter
--- OUTSIDE RECORDS SUMMARY | 2024-02-16 09:21 | XMS_ITS | Encounter Summary ---
Author Organization [place] Address [address] [place] [address] 19132 Care Team Providers Care Sr. Payroll Processor Name Role Phone Roderick Morelos MD Unavailable [phone] Magno Wood MD Unavailable [phone] Sophie Ocasio AuD Unavailable Henny Rosales BAR HOST/HOSTESS AGRONOMY ADVISOR Unavailable Sharee Oliva RD Unavailable [phone] Kaykay Duarte TUNNEL ELASTIC OPERATOR CHAINSTITCH Primary Care Provider Christiane Rodríguez MD Unavailable Chely FernandezC Unavailable [phone] Jing Cadena APRN LINE ASSIGNER Unavailable Radha Lopez [facility] Unavailable Luis A Escobedo MD Unavailable [phone] Geri LozaC Unavailable [phone] Raina Patterson BAR HOST/HOSTESS AGRONOMY ADVISOR Unavailable [phone] Encounter Details Date Type Department Care Team (Late st Contact Info) Description 01/14/2023 [facility] Medical Advice [facility] [place] [address] [facility] 4th [place] [address] Radha Dominguez, RN 420 [facility] 195 [place], [place] 8615[address] Social History Tobacco Use Types Packs/Day Years [...] on file Legal 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 Payroll Processor Relationship Specialty [place] [address] [place] [address] PCP - General 10/15/22 Roderick Morelos MD [address] [place] [address] Cardiovascular Disease 02/03/22 Magno Wood MD 420 [facility] 396 [place], [place] 990335 Otolaryngology 02/21/22 Sophie Ocasio, AuD [address] [place] [address] Glass Technician Audiology 02/21/22 Henny Rosales, BAR HOST/HOSTESS AGRONOMY ADVISOR [address] [place] [address] Assigned Heart and Vascular Provider 08/09/22 02/12/[address] [place] [address] 518175 Registered Dietitian Dietitian, Registered 09/02/22 Christiane Rodríguez MD 420 [facility] 396 [place], [place] 8[address]755 Otolaryngology 11/12/22 Chely Fernandez PA-C [address] [place] [address] 177055 Assigned Surgical Provider 11/29/22 02/06/23 Jing Cadena, BAR HOST/HOSTESS LINE ASSIGNER 420 [facility] 450 [place], [place] 0[address]65 Clinical Nurse Specialist Anesthesiology 01/15/23 Radha Lopez, [facility] [address] [place] [address] 288775 Pharmacist Pharmacist 01/16/23 Luis A Escobedo MD 420 [facility] 195 [place], [place] 238155 Assigned Surgical Provider 02/07/23 04/15/23 Geri Loza PA-C 909 [place] [address] Assigned Surgical Provider 04/16/23 Raina Patterson APRN AGRONOMY ADVISOR [address] [place] [address] Nurse Practitioner Cardiovascular Disease 05/11/23 documented as of this encounter
--- OUTSIDE RECORDS SUMMARY | 2024-02-16 09:21 | XMS_ITS | Encounter Summary ---
Author Organization [place] Address [address] [place] [address]66 Care Team Providers Care Doctor Of Optometry Name Role Phone Roderick Morelos MD Unavailable [phone] Magno Wood MD Unavailable [phone] Sophie Ocasio AuD Unavailable Henny Rosales TRAIN CREW MEMBER ETHNOARCHAEOLOGY PROFESSOR Unavailable Sharee Oliva RD Unavailable [phone] Kaykay Duarte OLIVE PITTER Primary Care Provider [phone] Christiane Rodríguez MD Unavailable [phone] Jing Cadena TRAIN CREW MEMBER RN TRAUMA Unavailable Radha Lopez [facility] Unavailable Luis A Escobedo MD Unavailable [phone] Geri Loza PA-C Unavailable [phone] Raina Patterson TRAIN CREW MEMBER ETHNOARCHAEOLOGY PROFESSOR Unavailable [phone] Encounter Details Date Type Department Care Team (Late st Contact Info) Description 04/06/2023 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 Gender Identity Not on file Sexual Orientation [...] documented as of this encounter Care Teams Doctor Of Optometry Relationship Specialty [place] [address] [place] [place] [address] PCP - General 10/15/22 Roderick Morelos MD [address] [place], [place] [address] Cardiovascular Disease 02/03/22 Magno Wood MD 420 [facility] 396 [place], [place] 9[address]95 Otolaryngology 02/21/22 Sophie Ocasio AuD 909 [place], [place] 345065 Furnace Charger Audiology 02/21/22 Henny Rosales, TRAIN CREW MEMBER ETHNOARCHAEOLOGY PROFESSOR [address] [place] [address] Assigned Heart and Vascular Provider 08/09/22 02/12/[address] 909 [place], [place] 9[address]15 Registered Dietitian Dietitian, Registered 09/02/22 Christiane Rodríguez MD 420 [facility] 396 [place], [place] 8[address]345 Otolaryngology 11/12/22 Jing Cadena, TRAIN CREW MEMBER RN TRAUMA 420 [facility] 450 [place], [place] 739165 Clinical Nurse Specialist Anesthesiology 01/15/23 Radha Lopez, [facility] 909 [place], [place] 56[address]55 Pharmacist Pharmacist 01/16/23 Luis A Escobedo MD 420 [facility] 195 [place], [place] 289105 Assigned Surgical Provider 02/07/23 04/15/23 Geri Loza PA-C 909 [place] [address] Assigned Surgical Provider 04/16/23 Raina Patterson, TRAIN CREW MEMBER ETHNOARCHAEOLOGY PROFESSOR [address] [place] [address] [place] [address] Nurse Practitioner Cardiovascular Disease 05/11/23 documented as of this encounter
--- OUTSIDE RECORDS SUMMARY | 2024-02-16 09:21 | XMS_ITS | Encounter Summary ---
Author Organization [facility] Address [address] [place] [address] Care Team Providers Care Ammunition Supervisor Name Role Phone Roderick Morelos MD Unavailable [phone] Magno Wood MD Unavailable [phone] Sophie Ocasio AuD Unavailable [phone] Henny Rosales BOWLING BALL ASSEMBLER CAN CONVEYOR FEEDER Unavailable Sharee Oliva RD Unavailable [phone] Kaykay Duarte IT INVESTMENT/PORTFOLIO MANAGER Primary Care Provider [phone] Christiane Rodríguez MD Unavailable Chely FernandezC Unavailable [phone] Jing Cadena BOWLING BALL ASSEMBLER BLURB WRITER Unavailable [phone] Radha Lopez [facility] Unavailable Luis A Escobedo MD Unavailable [phone] Geri LozaC Unavailable [phone] Raina [place] BOWLING BALL ASSEMBLER CAN CONVEYOR FEEDER Unavailable [phone] Reason for Visit * Reason Onset Date Comments Call Back 01/15/2023 See note. 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 Please contact Daisy Huynh, clinical trials specialist, if clinic appt slots are not available. Henny, The patient has been informed that you will contact them about the preop class. Thank you! Summer RN Radha Dominguez, MS, window glazier helper Weight Management Nurse Coordinator Katerina messages to P Surgery Clinic Wls Nurses - Contact Center Nurse Line and Clinic [phone] documented in this encounter Plan of Treatment [...] documented as of this encounter Care Teams Ammunition Supervisor Relationship Specialty Start Date End Date Kaykay Duarte, IT INVESTMENT/PORTFOLIO MANAGER [address] [place] [address] PCP - General 10/15/22 Roderick Morelos MD [address] [place] [address] Cardiovascular Disease 02/03/22 Magno Wood MD [address] [place] [address] 203965 Otolaryngology 02/21/22 Sophie Ocasio AuD [address] [place] [address] 872135 Functional Skills Tutor Audiology 02/21/22 Henny Rosales APRN CAN CONVEYOR FEEDER [address] [place] [address] Assigned Heart and Vascular Provider 08/09/22 02/12/[address] [place] [address] [place] [address] Registered Dietitian Dietitian, Registered 09/02/22 Christiane Rodríguez MD 420 [facility] 396 [place], [place] 222635 Otolaryngology 11/12/22 Chely Fernandez PA-C [address] [place] [address] Assigned Surgical Provider 11/29/22 02/06/23 Jing Cadena APRN BLURB WRITER 420 [facility] 450 [place], [place] 8[address]65 Clinical Nurse Specialist Anesthesiology 01/15/23 Radha Lopez, [facility] [address] [place] [address] 694345 Pharmacist Pharmacist 01/16/23 Luis A Escobedo MD [address] [place] [address] 195 [place] [address] Assigned Surgical Provider 02/07/23 04/15/23 Geri Loza PA-C [address] [place] [address] Assigned Surgical Provider 04/16/23 Raina Patterson APRN CAN CONVEYOR FEEDER [address] [place] [address] Nurse Practitioner Cardiovascular Disease 05/11/23 documented as of this encounter
--- OUTSIDE RECORDS SUMMARY | 2024-02-16 09:21 | XMS_ITS | Encounter Summary ---
Author Organization [place] Address [address] [place] [address] Care Team Providers Care Digital Media Representative Name Role Phone Roderick Morelos MD Unavailable [phone] Magno Wood MD Unavailable [phone] Sophie Ocasio AuD Unavailable Henny Rosales CHEMICAL PLANT TECHNICAL DIRECTOR SYSTEMS SOFTWARE DESIGNER Unavailable Sharee Oliva RD Unavailable [phone] Kaykay Duarte MOP WORKER Primary Care Provider Christiane Rodríguez MD Unavailable [phone] Jing Cadena CHEMICAL PLANT TECHNICAL DIRECTOR VEHICLE FARE COLLECTOR Unavailable Radha Lopez [facility] Unavailable Luis A Escobedo MD Unavailable [phone] Geri Loza PA-C Unavailable [phone] Raina Patterson CHEMICAL PLANT TECHNICAL DIRECTOR SYSTEMS SOFTWARE DESIGNER Unavailable [phone] Encounter Details Date Type Department Care Team (Late st Contact Info) Description 03/24/2023 [facility] [facility] [address] [place] [address] Angélica Milligan Social History Tobacco [...] on file 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 Gender Identity Not on file Sexual Orientation [...] documented as of this encounter Care Teams Digital Media Representative Relationship Specialty Start Date End Date Kaykay Duarte, MOP WORKER [address] [place] [address] [place] [address] PCP - General 10/15/22 Roderick Morelos MD [address] [place], [place] [address] Cardiovascular Disease 02/03/22 Magno Wood MD 420 [facility] 396 [place], [place] 9835[address] Otolaryngology 02/21/22 Sophie Ocasio AuD 909 [place], [place] [address] Clinical Trials Nurse Audiology 02/21/22 Henny Rosales, CHEMICAL PLANT TECHNICAL DIRECTOR SYSTEMS SOFTWARE DESIGNER [address] [place] [address] Assigned Heart and Vascular Provider 08/09/22 02/12/[address] 909 [place], [place] [address] Registered Dietitian Dietitian, Registered 09/02/22 Christiane Rodríguez MD 420 [facility] 396 [place], [place] 424985 Otolaryngology 11/12/22 Jing Cadena, CHEMICAL PLANT TECHNICAL DIRECTOR VEHICLE FARE COLLECTOR 420 [facility] 450 [place], [place] 679715 Clinical Nurse Specialist Anesthesiology 01/15/23 Radha Lopez, [facility] 909 [place], [place] 7[address] Pharmacist Pharmacist 01/16/23 Luis A Escobedo MD 420 [facility] 195 [place], [place] 174105 Assigned Surgical Provider 02/07/23 04/15/23 Geri Loza PA-C 909 [place] [address] Assigned Surgical Provider 04/16/23 Raina Patterson, CHEMICAL PLANT TECHNICAL DIRECTOR SYSTEMS SOFTWARE DESIGNER [address] [place] [address] Nurse Practitioner Cardiovascular Disease 05/11/23 documented as of this encounter
--- OUTSIDE RECORDS SUMMARY | 2024-02-16 09:22 | XMS_ITS | Encounter Summary ---
Author Organization [facility] Address [address] [place] [address] Care Team Providers Care Commodity Trader Name Role Phone Roderick Morelos MD Unavailable [phone] Magno Wood MD Unavailable [phone] Sophie Ocasio AuD Unavailable [phone] Henny Rosales WELL DRILL OPERATOR HELPER CABLE TOOL SWITCH TECHNICIAN Unavailable [phone] [facility] Primary Care Pr ovider Sharee Oliva RD Unavailable [phone] Kaykay Duarte CHURCH BUSINESS ADMINISTRATOR Primary Care Provider Christiane Rodríguez MD Unavailable Luis A Escobedo MD Unavailable [phone] Chely FernandezC Unavailable [phone] Jing Cadena APRN MANAGER COMBINATION Unavailable [phone] Radha Lopez [facility] Unavailable [phone] Luis A Escobedo MD Unavailable [phone] Geri LozaC Unavailable Raina Patterson APRN SWITCH TECHNICIAN Unavailable Encounter Details Date Type Department Care Team (Late st Contact Info) Description 08/19/2022 Telephone [facility] [address]th [place] [address] Geri Loza PA-C [address] [place] [address] 027545 Social History Tobacco Use Types Packs/Day Years Used Date Smoking Tobacco: Never Smokeless Tobacco: Never Alcohol Use Standard Drinks/Week Comments Yes 0 (1 standard drink = 0.6 oz pur e alcohol) socially PHQ-2 Answer Date Recorded PHQ-2 Score 0 08/15/2022 Comments No Sex and Gender Information Value Date Recorded Sex Assigned at Not on file Legal 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 LEVI MAKER Gender Identity Not on file Sexual Orientation [...] her insurance won't pay for them at [facility] and she needs the lab orders sent to [facility] in [place]. Please send myc msg to pt once lab orders sent. documented in this encounter Plan of Treatment Not on file documented as of this encounter Visit Diagnoses Not on filedocumented in this encounter Care Teams Commodity Trader Relationship Specialty Start Date End Date Clinic, [facility] [place] [address] [place], [place] 562927 PCP - General 08/19/22 10/14/22 Kaykay Duarte, CHURCH BUSINESS ADMINISTRATOR [address] [place] [address] PCP - General 10/15/22 Roderick Morelos MD [address] [place] [address] Cardiovascular Disease 02/03/22 Magno Wood MD [address] [place] [address] 396 [place], [place] 517975 Otolaryngology 02/21/22 Sophie Ocasio AuD [address] [place] [address] 063535 Service Greeter Audiology 02/21/22 Henny Rosales APRN SWITCH TECHNICIAN [address] [place] [address] Assigned Heart and Vascular Provider 08/09/22 02/12/[address] [place] [address] 545115 Registered Dietitian Dietitian, Registered 09/02/22 Christiane Rodríguez MD [address] [place] [address] 383515 Otolaryngology 11/12/22 Luis A Escobedo MD [address] [place] [address] 874655 Assigned Surgical Provider 11/01/22 11/28/22 Chely Fernandez PA-C 909 [place], [place] 440935 Assigned Surgical Provider 11/29/22 02/06/23 Jing Cadena APRN MANAGER COMBINATION 420 [facility] 450 [place] [address] Clinical Nurse Specialist Anesthesiology 01/15/23 Radha Lopez, [facility] 909 [place], [place] 023045 Pharmacist Pharmacist 01/16/23 Luis A Escobedo MD 420 [facility] 195 [place], [place] 822595 Assigned Surgical Provider 02/07/23 04/15/23 Geri Loza PA-C 909 [place], [place] 977645 Assigned Surgical Provider 04/16/23 Raina Patterson APRN SWITCH TECHNICIAN [address] [facility] [address] [place] 678965 Nurse Practitioner Cardiovascular Disease 05/11/23 documented as of this encounter
--- OUTSIDE RECORDS SUMMARY | 2024-02-16 09:22 | XMS_ITS | Encounter Summary ---
Author Organization [place] Address [address] [place] [address] Care Team Providers Care Kick Press Setter Name Role Phone Roderick Morelos MD Unavailable [phone] Magno Wood MD Unavailable [phone] Sophie Ocasio AuD Unavailable [phone] Henny Rosales BLANKET CUTTER HAND CLOTH BRUSHING AND SUEDING SUPERVISOR Unavailable [phone] [facility] Primary Care Pr ovider Sharee Oliva RD Unavailable [phone] Kaykay Duarte LIGHT BULB ASSEMBLER Primary Care Provider [phone] Christiane Rodríguez MD Unavailable Luis A Escobedo MD Unavailable [phone] Chely FernandezC Unavailable [phone] Jing Cadena APRN VISUAL BASIC DEVELOPER Unavailable Radha Lopez [facility] Unavailable [phone] Luis A Escobedo MD Unavailable [phone] Geri LozaC Unavailable [phone] Raina Patterson APRN CLOTH BRUSHING AND SUEDING SUPERVISOR Unavailable Encounter Details Date Type Department Care Team (Late st Contact Info) Description 09/02/2022 [facility] [place] [address] [facility] [address] 4th [place] [address] Kang Griffiths Social History Tobacco Use Types Packs/Day Years Used Date Smoking Tobacco: Never Smokeless Tobacco: Never Alcohol Use Standard Drinks/Week Comments Yes 0 (1 standard drink = 0.6 oz pur e alcohol) socially PHQ-2 Answer Date Recorded PHQ-2 Score 0 09/02/2022 Comments No Sex and Gender Information Value Date Recorded Sex Assigned at Not on file Legal 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 SHIPPING ROOM SUPERVISOR Gender Identity Not on file [...] on filedocumented in this encounter Care Teams Kick Press Setter Relationship Specialty Start Date End [place] [address] [place], [place] 670547 PCP - General 08/19/22 10/14/22 Kaykay Duarte NP [address] [place] [address] Dr [place] 762957 PCP - General 10/15/22 Roderick Morelos MD [address] [place] 9[address]275 Cardiovascular Disease 02/03/22 Magno Wood MD 420 [facility] 396 [place], [place] [address]055 Otolaryngology 02/21/22 Sophie Ocasio AuD [address] [place] [address] 407485 Framing Mechanic Audiology 02/21/22 Henny Rosales APRN CLOTH BRUSHING AND SUEDING SUPERVISOR [address] [place] [address] Assigned Heart and Vascular Provider 08/09/22 02/12/[address] [place] [address] Registered Dietitian Dietitian, Registered 09/02/22 Christiane Rodríguez MD [address] [place] [address] 396 [place], [place] 560395 Otolaryngology 11/12/22 Luis A Escobedo MD [address] [place] [address] 195 [place], [place] 180745 Assigned Surgical Provider 11/01/22 11/28/22 Chely Fernandez PA-C [address] [place] [address] 777825 Assigned Surgical Provider 11/29/22 02/06/23 Jing Cadena APRN VISUAL BASIC DEVELOPER [address] [place] [address] 450 [place], [place] 0[address]255 Clinical Nurse Specialist Anesthesiology 01/15/23 Radha Lopez, [facility] [address] [place] [address] Pharmacist Pharmacist 01/16/23 Luis A Escobedo MD 420 [facility] 195 [place], [place] 995395 Assigned Surgical Provider 02/07/23 04/15/23 Geri Loza PA-C 909 [place], [place] 295085 Assigned Surgical Provider 04/16/23 Raina Patterson APRN CLOTH BRUSHING AND SUEDING SUPERVISOR [address] [place], [place] 0[address]65 Nurse Practitioner Cardiovascular Disease 05/11/23 documented as of this encounter
--- OUTSIDE RECORDS SUMMARY | 2024-02-16 09:22 | XMS_ITS | Encounter Summary ---
Author Organization [facility] Address [address] [place] [address] Care Team Providers Care Pharmaceutical Analyst Name Role Phone Roderick Morelos MD Unavailable [phone] Magno Wood MD Unavailable [phone] Sophie Ocasio AuD Unavailable [phone] Henny Rosales HAIR MIXER LOW PRESSURE FIRER Unavailable [phone] Unavailable [phone] Kaykay Duarte ENDLESS BELT FINISHER Primary Care Provider Christiane Rodríguez MD Unavailable [phone] Luis A Escobedo MD Unavailable [phone] Chely Fernandez PA-C Unavailable [phone] Jing Cadena HAIR MIXER SALES REPRESENTATIVE PRINTING PAPER Unavailable Radha Lopez [facility] Unavailable [phone] Luis A Escobedo MD Unavailable [phone] Geri LozaC Unavailable [phone] Raina Patterson HAIR MIXER LOW PRESSURE FIRER Unavailable [phone] Encounter Details Date Type Department Care Team (Late st Contact Info) Description 10/17/2022 MyC Medical Advice [facility] [place] [id number] [facility] SE 4th [place] [address] Henny Arguello, RN Social History Tobacco Use Types Packs/Day Years Used Date Smoking Tobacco: Never Smokeless Tobacco: Never Alcohol Use Standard Drinks/Week Comments Yes 0 (1 standard drink = 0.6 oz pur e alcohol) socially PHQ-2 Answer Date Recorded PHQ-2 Score 0 09/29/2022 Comments No Sex and Gender Information Value Date Recorded Sex Assigned at Not on file Legal 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 PROPERTY UNDERWRITER Gender Identity Not on file Sexual Orientation Not on file COVID-19 Exposure Response Date Recorded In the last 10 days, have hoad u been in contact with someone who [...] documented as of this encounter Care Teams Pharmaceutical Analyst Relationship Specialty [place] [address] [place] [address] PCP - General 10/15/22 Roderick Morelos MD [address] [place] 209705 Cardiovascular Disease 02/03/22 Magno Wood MD [address] [facility] 396 [place], [place] 207255 Otolaryngology 02/21/22 Sophie Ocasio AuD 9 [place], [place] 577505 Process Safety Engineering Technologist Audiology 02/21/22 Henny Rosales APRN LOW PRESSURE FIRER [address] [place] [address] Assigned Heart and Vascular Provider 08/09/22 02/12/[address] [place] [address] [id number] Registered Dietitian Dietitian, Registered 09/02/22 Christiane Rodríguez MD [address] [place] [address] 396 [place] [address] Otolaryngology 11/12/22 Luis A Escobedo MD 420 [facility] 195 [place] [address] Assigned Surgical Provider 11/01/22 11/28/22 Chely Fernandez PA-C [address] [place] [address] Assigned Surgical Provider 11/29/22 02/06/23 Jing Cadena, HAIR MIXER SALES REPRESENTATIVE PRINTING PAPER 420 [facility] 450 [place] [address] Clinical Nurse Specialist Anesthesiology 01/15/23 Radha Lopez [facility] [address] [place] [address] 607105 Pharmacist Pharmacist 01/16/23 Luis A Escobedo MD 420 [facility] 195 [place], [place] 565915 Assigned Surgical Provider 02/07/23 04/15/23 Geri Loza PA-C 909 [place], [place] 636425 Assigned Surgical Provider 04/16/23 Raina Patterson APRN LOW PRESSURE FIRER [address] [place], [place] 199335 Nurse Practitioner Cardiovascular Disease 05/11/23 documented as of this encounter
--- OUTSIDE RECORDS SUMMARY | 2024-02-16 09:22 | XMS_ITS | Encounter Summary ---
Author Organization [facility] Address [address] [place] [address] Care Team Providers Care Lyft Driver Name Role Phone Roderick Morelos MD Unavailable [phone] Magno Wood MD Unavailable [phone] Sophie Ocasio AuD Unavailable [phone] Henny Rosales LACE PAPER MACHINE OPERATOR WAREHOUSE ASSEMBLY WORKER Unavailable [phone] [facility] Primary Care Pr ovider Sharee Oliva RD Unavailable [phone] Kaykay Duarte LENS INSERTER Primary Care Provider Christiane Rodríguez MD Unavailable [phone] Luis A Escobedo MD Unavailable [phone] Chely FernandezC Unavailable [phone] Jing Cadena APRN WOOD PANEL INSPECTOR Unavailable Radha Lopez [facility] Unavailable [phone] Luis A Escobedo MD Unavailable [phone] Geri LozaC Unavailable [phone] Raina Patterson APRN WAREHOUSE ASSEMBLY WORKER Unavailable [phone] Encounter Details Date Type Department Care Team (Late st Contact Info) Description 09/02/2022 MyC Medical Advice [facility] [place] [address] [place] [address] [address] [place] [address] Geri Loza PA-C 909 [place], [place] 669015 Social History Tobacco Use Types Packs/Day Years Used Date Smoking Tobacco: Never Smokeless Tobacco: Never Alcohol Use Standard Drinks/Week Comments Yes 0 (1 standard drink = 0.6 oz pur e alcohol) socially PHQ-2 Answer Date Recorded PHQ-2 Score 0 09/02/2022 Comments No Sex and Gender Information Value Date Recorded Sex Assigned at Not on file Legal 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 SAFETY PATROL OFFICER Gender Identity Not on file Sexual Orientation [...] on filedocumented in this encounter Care Teams Lyft Driver Relationship Specialty Start [place] [address] [place] [address] PCP - General 08/19/22 10/14/22 Kaykay Duarte LENS INSERTER [address] [place] [address] PCP - General 10/15/22 Roderick Morelos MD [address] [place] [address] Cardiovascular Disease 02/03/22 Magno Wood MD 420 [facility] 396 [place] [address] Otolaryngology 02/21/22 Sophie Ocasio AuD 909 [place] [address] Racing Board Marker Audiology 02/21/22 Henny Rosales, LACE PAPER MACHINE OPERATOR WAREHOUSE ASSEMBLY WORKER [address] [place] [address] Assigned Heart and Vascular Provider 08/09/22 02/12/[address] [place] [address] 577365 Registered Dietitian Dietitian, Registered 09/02/22 Christiane Rodríguez MD 420 [facility] 396 [place], [place] 949195 Otolaryngology 11/12/22 Luis A Escobedo MD [address] [place] [address] 195 [place], [place] 498385 Assigned Surgical Provider 11/01/22 11/28/22 Chely Fernandez PA-C [address] [place] [address] 294075 Assigned Surgical Provider 11/29/22 02/06/23 Jing Cadena APRN WOOD PANEL INSPECTOR 420 [facility] 450 [place], [place] 489745 Clinical Nurse Specialist Anesthesiology 01/15/23 Radha Lopez, [facility] [address] [place] [address] Pharmacist Pharmacist 01/16/23 Luis A Escobedo MD [address] [place] [address] 195 [place] [address] Assigned Surgical Provider 02/07/23 04/15/23 Geri Loza PA-C [address] [place] [address] Assigned Surgical Provider 04/16/23 Raina Patterson APRN WAREHOUSE ASSEMBLY WORKER [address] [place], [place] 442625 Nurse Practitioner Cardiovascular Disease 05/11/23 documented as of this encounter
--- OUTSIDE RECORDS SUMMARY | 2024-02-16 09:22 | XMS_ITS | Encounter Summary ---
Author Organization [place] Address [address] [place] [address] Care Team Providers Care Sintering Press Operator Name Role Phone Roderick Morelos MD Unavailable Magno Wood MD Unavailable [phone] Sophie Ocasio AuD Unavailable [phone] Henny Rosales OUTBOUND TELEMARKETING REPRESENTATIVE HAND CANDY CUTTER Unavailable [phone] Unavailable [phone] Kaykay Duarte TRANSACTION COORDINATOR Primary Care Provider [phone] Christiane Rodríguez MD Unavailable [phone] Luis A Escobedo MD Unavailable [phone] Chely Fernandez PA-C Unavailable [phone] Jing Cadena OUTBOUND TELEMARKETING REPRESENTATIVE KILN LOADER Unavailable Radha Lopez [facility] Unavailable [phone] Luis A Escobedo MD Unavailable [phone] Geri LozaC Unavailable [phone] Raina Patterson OUTBOUND TELEMARKETING REPRESENTATIVE HAND CANDY CUTTER Unavailable [phone] Encounter Details Date Type Department Care Team (Late st Contact Info) Description 10/15/2022 MyC Medical Advice [facility] [place] 9[address] [facility] SE 4th [place] [address] Luis A Escobedo MD [address] [facility] 195 [place] [address] Social History Tobacco Use Types Packs/Day Years Used Date Smoking Tobacco: Never Smokeless Tobacco: Never Alcohol Use Standard Drinks/Week Comments Yes 0 (1 standard drink = 0.6 oz pur e alcohol) socially PHQ-2 Answer Date Recorded PHQ-2 Score 0 09/29/2022 Comments No Sex and Gender Information Value Date Recorded Sex Assigned at Not on file Legal 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 SECOND MILLER Gender Identity Not on file Sexual Orientation [...] documented as of this encounter Care Teams Sintering Press Operator Relationship Specialty Start Date End Date Kaykay Duarte TRANSACTION COORDINATOR [address] [place] [address] PCP - General 10/15/22 Roderick Morelos MD [address] [place] [address] Cardiovascular Disease 02/03/22 Magno Wood MD 420 [facility] 396 [place] [address] Otolaryngology 02/21/22 Sophie Ocasio AuD 909 [place] [address] Form Worker Audiology 02/21/22 Henny Rosales, OUTBOUND TELEMARKETING REPRESENTATIVE HAND CANDY CUTTER [address] [place] [address] Assigned Heart and Vascular Provider 08/09/22 02/12/[address] [place] [address] 135385 Registered Dietitian Dietitian, Registered 09/02/22 Christiane Rodríguez MD 420 [facility] 396 [place], [place] 748485 Otolaryngology 11/12/22 Luis A Escobedo MD 420 [facility] 195 [place], [place] 641385 Assigned Surgical Provider 11/01/22 11/28/22 Chely Fernandez PA-C [address] [place] [address] 876165 Assigned Surgical Provider 11/29/22 02/06/23 Jing Cadena, OUTBOUND TELEMARKETING REPRESENTATIVE KILN LOADER 420 [facility] 450 [place], [place] 159995 Clinical Nurse Specialist Anesthesiology 01/15/23 Radha Lopez, [facility] [address] [place] [address] Pharmacist Pharmacist 01/16/23 Luis A Escboedo MD [address] [place] [address] 195 [place] [address] Assigned Surgical Provider 02/07/23 04/15/23 Geri Loza PA-C [address] [place] [address] Assigned Surgical Provider 04/16/23 Raina Patterson APRN HAND CANDY CUTTER [address] [place] 861675 Nurse Practitioner Cardiovascular Disease 05/11/23 documented as of this encounter
--- OUTSIDE RECORDS SUMMARY | 2024-02-16 09:22 | XMS_ITS | Encounter Summary ---
Author Organization [facility] Address [address] [place] [address] Care Team Providers Care Metal Organ Pipe Maker Name Role Phone Roderick Morelos MD Unavailable [phone] Magno Wood MD Unavailable [phone] Sophie Ocasio AuD Unavailable [phone] Henny Rosales COUNSELING DEPARTMENT CHAIR FRONT DESK REPRESENTATIVE Unavailable [phone] Unavailable [phone] Kaykay Duarte CLINIC OFFICE ASSISTANT Primary Care Provider Christiane Rodríguez MD Unavailable [phone] Luis A Escobedo MD Unavailable [phone] Chely Fernandez PA-C Unavailable [phone] Jing Cadena COUNSELING DEPARTMENT CHAIR MANAGER CHEMISTRY Unavailable Radha Lopez [facility] Unavailable [phone] Luis A Escobedo MD Unavailable [phone] Geri LozaC Unavailable [phone] Raina Patterson COUNSELING DEPARTMENT CHAIR FRONT DESK REPRESENTATIVE Unavailable [phone] Encounter Details Date Type Department Care Team (Late st Contact Info) Description 11/03/2022 [facility] [place] [id number] [facility] [address] 4th [place] [address] Kang Griffiths Social History Tobacco Use Types Packs/Day Years Used Date Smoking Tobacco: Never Smokeless Tobacco: Never Alcohol Use Standard Drinks/Week Comments Yes 0 (1 standard drink = 0.6 oz pur e alcohol) socially PHQ-2 Answer Date Recorded PHQ-2 Score 0 11/05/2022 Comments No Sex and Gender Information Value Date Recorded Sex Assigned at Not on file Legal 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 ROLLING MACHINE OPERATOR Gender Identity Not on file Sexual Orientation [...] documented as of this encounter Care Teams Metal Organ Pipe Maker Relationship Specialty [place] [address] [place] [address] PCP - General 10/15/22 Roderick Morelos MD [address] [place] 208435 Cardiovascular Disease 02/03/22 Magno Wood MD [address] [facility] 396 [place], [place] 124085 Otolaryngology 02/21/22 Sophie Ocasio AuD 9 [place], [place] 705575 Motor Mechanic Audiology 02/21/22 Henny Rosales APRN FRONT DESK REPRESENTATIVE [address] [place] [address] Assigned Heart and Vascular Provider 08/09/22 02/12/[address] [place] [address] 889795 Registered Dietitian Dietitian, Registered 09/02/22 Christiane Rodríguez MD 420 [facility] 396 [place], [place] 683185 Otolaryngology 11/12/22 Luis A Escobedo MD 420 [facility] 195 [place] [address] Assigned Surgical Provider 11/01/22 11/28/22 Chely Fernandez PA-C [address] [place] [address] Assigned Surgical Provider 11/29/22 02/06/23 Jing Cadena, COUNSELING DEPARTMENT CHAIR MANAGER CHEMISTRY 420 [facility] 450 [place] [address] Clinical Nurse Specialist Anesthesiology 01/15/23 Radha Lopez, [facility] [address] [place] [address] 045785 Pharmacist Pharmacist 01/16/23 Luis A Escobedo MD 420 [facility] 195 [place], [place] 859785 Assigned Surgical Provider 02/07/23 04/15/23 Geri Loza PA-C 909 [place], [place] 287345 Assigned Surgical Provider 04/16/23 Raina Patterson APRN FRONT DESK REPRESENTATIVE [address] [facility] [address] [place] [address]275 Nurse Practitioner Cardiovascular Disease 05/11/23 documented as of this encounter
--- OUTSIDE RECORDS SUMMARY | 2024-02-16 09:22 | XMS_ITS | Encounter Summary ---
Author Organization [place] Address [address] [place] [address] Care Team Providers Care Television Producer Name Role Phone Roderick Morelos MD Unavailable Magno Wood MD Unavailable [phone] Sophie Ocasio AuD Unavailable [phone] Henny Rosales FILTERER TEXTILE FINISHER Unavailable [phone] [facility] Primary Care Pr ovider Sharee Oliva RD Unavailable [phone] Kaykay Duarte MARKETING STRATEGY MANAGER Primary Care Provider Christiane Rodríguez MD Unavailable Luis A Escobedo MD Unavailable [phone] Chely FernandezC Unavailable [phone] Jing Cadena APRN BAG LOADER Unavailable Radha Lopez [facility] Unavailable [phone] Luis A Escobedo MD Unavailable [phone] Geri LozaC Unavailable [phone] Raina Patterson APRN TEXTILE FINISHER Unavailable [phone] Encounter Details Date Type Department Care Team (Late st Contact Info) Description 08/25/2022 Telephone [facility] [address] [place] [address] Geri Loza PA-C [address] [place] [address] Social History Tobacco Use Types Packs/Day Years Used Date Smoking Tobacco: Never Smokeless Tobacco: Never Alcohol Use Standard Drinks/Week Comments Yes 0 (1 standard drink = 0.6 oz pur e alcohol) socially PHQ-2 Answer Date Recorded PHQ-2 Score 0 08/15/2022 Comments No Sex and Gender Information Value Date Recorded Sex Assigned at Not on file Legal 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 BACK END ARCHITECT Gender Identity Not on file Sexual Orientation [...] reply back to the patient. Patient stated thatshe is being inpatient but she had her [...] on filedocumented in this encounter Care Teams Television Producer Relationship Specialty Start [place] [address] [place] [address] PCP - General 08/19/22 10/14/22 [place] [address] [place] [address] PCP - General 10/15/22 Roderick Morelos MD [address] [place] [address] Cardiovascular Disease 02/03/22 Magno Wood MD [address] [place] [address] Otolaryngology 02/21/22 Sophie Ocasio AuD [address] [place] [address] 130385 Acid Wash Operator Audiology 02/21/22 Henny Rosales APRN TEXTILE FINISHER [address] [place] [address] Assigned Heart and Vascular Provider 08/09/22 02/12/[address] [place] [address] 061935 Registered Dietitian Dietitian, Registered 09/02/22 Christiane Rodríguez MD [address] [place] [address] 841165 Otolaryngology 11/12/22 Luis A Escobedo MD [address] 728785 Assigned Surgical Provider 11/01/22 11/28/22 Chely Fernandez PA-C 909 [place], [place] 828555 Assigned Surgical Provider 11/29/22 02/06/23 Jing Cadena APRN BAG LOADER [address] 606075 Clinical Nurse Specialist Anesthesiology 01/15/23 Radha Lopez, [facility] [address] [place] [address] 918825 Pharmacist Pharmacist 01/16/23 Luis A Escobedo MD [address] [address] Assigned Surgical Provider 02/07/23 04/15/23 Geri Loza PA-C [address] [place] [address] 023695 Assigned Surgical Provider 04/16/23 Raina Patterson, GINA TEXTILE FINISHER [address] [place] 169275 Nurse Practitioner Cardiovascular Disease 05/11/23 documented as of this encounter
--- OUTSIDE RECORDS SUMMARY | 2024-02-16 09:22 | XMS_ITS | Encounter Summary ---
Author Organization [facility] Address [address] [place] [address] Care Team Providers Care Toppiece Cutter Name Role Phone Roderick Morelos MD Unavailable [phone] Magno Wood MD Unavailable [phone] Sophie Ocasio AuD Unavailable [phone] Henny Rosales COMMUNITY MARKETING COORDINATOR RED LEAD BURNER Unavailable [phone] [facility] Primary Care Pr ovider Sharee Oliva RD Unavailable [phone] Kaykay Duarte MANAGER FLORAL Primary Care Provider Christiane Rodríguez MD Unavailable Luis A Escobedo MD Unavailable [phone] Chely FernandezC Unavailable [phone] Jing Cadena APRN PHOTO FINISHER Unavailable Radha Lopez [facility] Unavailable [phone] Luis A Escobedo MD Unavailable [phone] Geri LozaC Unavailable Raina Patterson APRN RED LEAD BURNER Unavailable Encounter Details Date Type Department Care Team (Late st Contact Info) Description 10/03/[address] [facility] [place] 909 [facility] [address] 4th [place] [address] Geri Loza PA-C 909 [place], [place] 686065 Social History Tobacco Use Types Packs/Day Years Used Date Smoking Tobacco: Never Smokeless Tobacco: Never Alcohol Use Standard Drinks/Week Comments Yes 0 (1 standard drink = 0.6 oz pur e alcohol) socially PHQ-2 Answer Date Recorded PHQ-2 Score 0 09/29/2022 Comments No Sex and Gender Information Value Date Recorded Sex Assigned at Not on file Legal 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 BASTING PULLER Gender Identity Not on file Sexual Orientation Not on file documented as of this encounter Plan of Treatment Not on file documented as of this encounter Visit Diagnoses Not on filedocumented in this encounter Care Teams Toppiece Cutter Relationship Specialty Start Date End Date Clinic, [place] [address] [place] [address] PCP - General 08/19/22 10/14/22 [place] [address] [place] [address] PCP - General 10/15/22 Roderick Morelos MD [address] [place] 812195 Cardiovascular Disease 02/03/22 Magno Wood MD 420 [facility] 396 [place], [place] 7[address]75 Otolaryngology 02/21/22 Sophie Ocasio AuD 9 [place], [place] 388475 Braiding Operator Audiology 02/21/22 Henny Rosales APRN RED LEAD BURNER [address] [place] [address] Assigned Heart and Vascular Provider 08/09/22 02/12/[address] [place] [address] 222285 Registered Dietitian Dietitian, Registered 09/02/22 Christiane Rodríguez MD [address] [place] [address] 396 [place], [place] 567485 Otolaryngology 11/12/22 Luis A Escobedo MD 420 [facility] 195 [place] [address] Assigned Surgical Provider 11/01/22 11/28/22 Chely Fernandez PA-C [address] [place] [address] 058055 Assigned Surgical Provider 11/29/22 02/06/23 Jing Cadena APRN PHOTO FINISHER 420 [facility] 450 [place] [address] Clinical Nurse Specialist Anesthesiology 01/15/23 Radha Lopez, [facility] [address] [place] [address] 474255 Pharmacist Pharmacist 01/16/23 Luis A Escobedo MD 420 [facility] 195 [place], [place] 812805 Assigned Surgical Provider 02/07/23 04/15/23 Geri Loza PA-C 909 [place], [place] 769135 Assigned Surgical Provider 04/16/23 Raina Patterson APRN RED LEAD BURNER [address] [facility] [address] [place] 437705 Nurse Practitioner Cardiovascular Disease 05/11/23 documented as of this encounter
--- OUTSIDE RECORDS SUMMARY | 2024-02-16 09:22 | XMS_ITS | Encounter Summary ---
Author Organization [facility] Address [address] [place] [address] Care Team Providers Care Sales Marketing Director Name Role Phone Roderick Morelos MD Unavailable [phone] Magno Wood MD Unavailable [phone] Sophie Ocasio AuD Unavailable [phone] Henny Rosales BRICK KILN WORKER MACHINE PRINTER Unavailable [phone] [facility] [place] [facility] [place] Primary Care Pr ovider Sharee Oliva RD Unavailable [phone] Kaykay Duarte DUSTER TENDER Primary Care Provider [phone] Christiane Rodríguez MD Unavailable [phone] Luis A Escobedo MD Unavailable [phone] Chely FernandezC Unavailable [phone] Jing Cadena APRN STRONG NITRIC OPERATOR Unavailable Radha Lopez [facility] Unavailable [phone] Luis A Escobedo MD Unavailable [phone] Geri LozaC Unavailable Raina Patterson APRN MACHINE PRINTER Unavailable [phone] Encounter Details Date Type Department Care Team (Late st Contact Info) Description 09/09/2022 MyC Medical Advice [facility] [address] [place] [address] Tanya Larsen RN Social History [...] on file Legal 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 PROFESSOR OF RELIGIOUS STUDIES Gender Identity Not on file Sexual Orientation Not on file documented as of this encounter Plan of Treatment Not on file documented as of this encounter Visit Diagnoses Not on filedocumented in this encounter Care Teams Sales Marketing Director Relationship Specialty Start Date End Date Clinic, [facility] [address] [place] [address] PCP - General 08/19/22 10/14/22 Kaykay Duarte NP [address] [place] [address] [place] [address] PCP - General 10/15/22 Roderick Morelos MD [address] [place] [address] Cardiovascular Disease 02/03/22 Magno Wood MD [address] [place] [address] Otolaryngology 02/21/22 Sophie Ocasio, AuD [address] [place] [address] Gas Desulfurizer Audiology 02/21/22 Henny Rosales APRN MACHINE PRINTER [address] [place] [address] Assigned Heart and Vascular Provider 08/09/22 02/12/[address] [place] [address] 413405 Registered Dietitian Dietitian, Registered 09/02/22 Christiane Rodríguez MD [address] [place] [address] 396 [place], [place] 824325 Otolaryngology 11/12/22 Luis A Escobedo MD [address] [place] [address] 688535 Assigned Surgical Provider 11/01/22 11/28/22 Chely Fernandez PA-C [address] [place] [address] 507555 Assigned Surgical Provider 11/29/22 02/06/23 Jing Cadena APRN STRONG NITRIC OPERATOR [address] [place] [address] 450 [place], [place] 752995 Clinical Nurse Specialist Anesthesiology 01/15/23 Radha Lopez, [facility] [address] [place] [address] 684365 Pharmacist Pharmacist 01/16/23 Luis A Escobedo MD [address] [place] [address] 060285 Assigned Surgical Provider 02/07/23 04/15/23 Geri Loza PA-C 9 [place] [address] Assigned Surgical Provider 04/16/23 Raina Patterson APRN MACHINE PRINTER [address] [facility] [address] [place] [address] Nurse Practitioner Cardiovascular Disease 05/11/23 documented as of this encounter
--- OUTSIDE RECORDS SUMMARY | 2024-02-16 09:22 | XMS_ITS | Encounter Summary ---
Author Organization [facility] Address [address] [place] [address] Care Team Providers Care Certified Scrum Master Name Role Phone Roderick Morelos MD Unavailable [phone] Magno Wood MD Unavailable Sophie Ocasio AuD Unavailable [phone] Henny Rosales POLICE STENOGRAPHER ATHLETIC TRAINING INTERNSHIP Unavailable [phone] [facility] [place] [facility] Pr ovider Sharee Oliva RD Unavailable [phone] Kaykay Duarte RECREATION TEACHER Primary Care Provider Christiane Rodríguez MD Unavailable Luis A Escobedo MD Unavailable [phone] Chely FernandezC Unavailable [phone] Jing Cadena APRN WASTEWATER ANALYST LAB ANALYST Unavailable Radha Lopez [facility] Unavailable [phone] Luis A Escobedo MD Unavailable [phone] Geri LozaC Unavailable [phone] Raina Patterson APRN ATHLETIC TRAINING INTERNSHIP Unavailable Encounter Details Date Type Department Care Team (Late st Contact Info) Description 08/19/2022 MyC Medical Advice [facility] [address] 4th [place] [phone] Tanya Larsen RN Social History Tobacco Use Types Packs/Day Years Used Date Smoking Tobacco: Never Smokeless Tobacco: Never Alcohol Use Standard Drinks/Week Comments Yes 0 (1 standard drink = 0.6 oz pur e alcohol) socially PHQ-2 Answer Date Recorded PHQ-2 Score 0 08/15/2022 Comments No Sex and Gender Information Value Date Recorded Sex Assigned at Not on file Legal 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 CHIEF DISPATCHER SERVICE Gender Identity Not on file Sexual Orientation [...] filedocumented in this encounter Care Teams Certified Scrum Master Relationship Specialty Start [place] [address] [place] [address] PCP - General 08/19/22 10/14/22 Kaykay Duarte NP [address] [place] [address] [place] [address] PCP - General 10/15/22 Roderick Morelos MD [address] [place] 477045 Cardiovascular Disease 02/03/22 Magno Wood MD 420 [facility] 396 [place], [place] 268905 Otolaryngology 02/21/22 Sophie Ocasio AuD [address] [place] [address] [id number] Bail Attacher Audiology 02/21/22 Henny Rosales APRN ATHLETIC TRAINING INTERNSHIP [address] [place] [address] Assigned Heart and Vascular Provider 08/09/22 02/12/[address] [place] [address] 074385 Registered Dietitian Dietitian, Registered 09/02/22 Christiane Rodríguez MD [address] [place] [address] 396 [place], [place] 604935 Otolaryngology 11/12/22 Luis A Escobedo MD [address] [place] [address] 195 [place], [place] 757685 Assigned Surgical Provider 11/01/22 11/28/22 Chely Fernandez PA-C [address] [place] [address] 076955 Assigned Surgical Provider 11/29/22 02/06/23 Jing Cadena APRN WASTEWATER ANALYST LAB ANALYST [address] [place] [address] 450 [place], [place] 551945 Clinical Nurse Specialist Anesthesiology 01/15/23 Radha Lopez, [facility] [address] [place] [address] Pharmacist Pharmacist 01/16/23 Luis A Escobedo MD 420 [facility] 195 [place], [place] 763705 Assigned Surgical Provider 02/07/23 04/15/23 Geri Loza PA-C [address] [place] [address] 540225 Assigned Surgical Provider 04/16/23 Raina Patterson APRN ATHLETIC TRAINING INTERNSHIP [address] [place], [place] 150335 Nurse Practitioner Cardiovascular Disease 05/11/23 documented as of this encounter
--- OUTSIDE RECORDS SUMMARY | 2024-02-16 09:22 | XMS_ITS | Encounter Summary ---
Author Organization [facility] Address [address] [place] [address] Care Team Providers Care Final Armature Tester Name Role Phone Roderick Morelos MD Unavailable [phone] Magno Wood MD Unavailable [phone] Sophie Ocasio AuD Unavailable [phone] Henny Rosales MOTORS ASSEMBLER BASEBALL SEWER HAND Unavailable [phone] Unavailable [phone] Kaykay Duarte SIDE SAWYER Primary Care Provider [phone] Christiane Rodríguez MD Unavailable [phone] Luis A Escobedo MD Unavailable +[phone] Chely Fernandez PA-C Unavailable [phone] Jing Cadena MOTORS ASSEMBLER TRIAL PARALEGAL Unavailable Radha Lopez [facility] Unavailable [phone] Luis A Escobedo MD Unavailable [phone] Geri LozaC Unavailable [phone] Raina Patterson MOTORS ASSEMBLER BASEBALL SEWER HAND Unavailable [phone] Encounter Details Date Type Department Care Team (Late st Contact Info) Description 10/16/2022 MyC Medical Advice Initial Department Kang Griffiths [...] on file Legal 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 Gender Identity Not on file Sexual Orientation [...] documented as of this encounter Care Teams Final Armature Tester Relationship Specialty Start Date End Date Kaykay Duarte, [place] [address] [place], [place] 128947 PCP - General 10/15/22 Roderick Morelos MD [address] [place], [place] 382845 Cardiovascular Disease 02/03/22 Magno Wood MD [address] [place] [address] 891475 Otolaryngology 02/21/22 Sophie Ocasio, AuD [address] [place] [address] [phone] Draw Frame Operator Audiology 02/21/22 Henny Rosales MOTORS ASSEMBLER BASEBALL SEWER HAND [address] [place] [phone] Assigned Heart and Vascular Provider 08/09/22 02/12/[address] [place] [address] [phone] Registered Dietitian Dietitian, Registered 09/02/22 Christiane Rodríguez MD 420 [facility] 396 [place], [place] 078935 Otolaryngology 11/12/22 Luis A Escobedo MD [address] [place] [address] 195 [place], [place] 233105 Assigned Surgical Provider 11/01/22 11/28/22 Chely Fernandez PA-C [address] [place] [address] 700075 Assigned Surgical Provider 11/29/22 02/06/23 Jing Cadena, MOTORS ASSEMBLER TRIAL PARALEGAL 420 [facility] 450 [place], [place] 379145 Clinical Nurse Specialist Anesthesiology 01/15/23 Radha Lopez [facility] [address] [place] [address] 707245 Pharmacist Pharmacist 01/16/23 Luis A Escobedo MD [address] [place] [address] 195 [place] [address] Assigned Surgical Provider 02/07/23 04/15/23 Geri Loza PA-C 9 [place] [address] Assigned Surgical Provider 04/16/23 Raina Patterson APRN BASEBALL SEWER HAND [address] [place] [address] Nurse Practitioner Cardiovascular Disease 05/11/23 documented as of this encounter
--- OUTSIDE RECORDS SUMMARY | 2024-02-16 09:22 | XMS_ITS | Encounter Summary ---
Author Organization [facility] Address [address] [place] [address] Care Team Providers Care Food Service Driver Name Role Phone Roderick Morelos MD Unavailable [phone] Magno Wood MD Unavailable [phone] Sophie Ocasio AuD Unavailable [phone] Henny Rosales INNER TUBE TUBER MACHINE OPERATOR WIRE DRAWING MACHINE TENDER Unavailable [phone] Unavailable [phone] Kaykay Duarte JEWEL GRINDER Primary Care Provider [phone] Christiane Rodríguez MD Unavailable [phone] Luis A Escobedo MD Unavailable +[phone] Chely Fernandez PA-C Unavailable [phone] Jing Cadena INNER TUBE TUBER MACHINE OPERATOR THIRD MILLER Unavailable Radha Lopez [facility] Unavailable [phone] Luis A Escobedo MD Unavailable [phone] Geri LozaC Unavailable [phone] Raina Patterson INNER TUBE TUBER MACHINE OPERATOR WIRE DRAWING MACHINE TENDER Unavailable [phone] Encounter Details Date Type Department Care Team (Late st Contact Info) Description 11/07/2022 MyC Medical Advice [facility] [place] [address] [facility] 4th [place] [address] Geri Loza PA-C 909 [place], [place] 259015 Social History Tobacco Use Types Packs/Day Years Used Date Smoking Tobacco: Never Smokeless Tobacco: Never Alcohol Use Standard Drinks/Week Comments Yes 0 (1 standard drink = 0.6 oz pur e alcohol) socially PHQ-2 Answer Date Recorded PHQ-2 Score 0 11/05/2022 Comments No Sex and Gender Information Value Date Recorded Sex Assigned at Not on file Legal 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 SUPERVISOR PRECISION OPTICAL ELEMENTS Gender Identity Not on file Sexual Orientation [...] of this encounter Care Teams Food Service Driver Relationship Specialty Start Date End Date Kaykay Duarte, JEWEL GRINDER [address] [place] [address] PCP - General 10/15/22 Roderick Morelos MD [address] [place] [address] Cardiovascular Disease 02/03/22 Magno Wood MD [address] [place] [address] 396 [place] [address] Otolaryngology 02/21/22 Sophie Ocasio AuD 909 [place] [address] Construction Superintendent Audiology 02/21/22 Henny Rosales, INNER TUBE TUBER MACHINE OPERATOR WIRE DRAWING MACHINE TENDER [address] [place] [address] Assigned Heart and Vascular Provider 08/09/22 02/12/[address] [place] [address] [id number] Registered Dietitian Dietitian, Registered 09/02/22 Christiane Rodríguez MD 420 [facility] 396 [place], [place] 689515 Otolaryngology 11/12/22 Luis A Escobedo MD 420 [facility] 195 [place], [place] 206895 Assigned Surgical Provider 11/01/22 11/28/22 Chely Fernandez PA-C [address] [place] [address] 089565 Assigned Surgical Provider 11/29/22 02/06/23 Jing Cadena, INNER TUBE TUBER MACHINE OPERATOR THIRD MILLER 420 [facility] 450 [place], [place] 967505 Clinical Nurse Specialist Anesthesiology 01/15/23 Radha Lopez, [facility] [address] [place] [address] Pharmacist Pharmacist 01/16/23 Luis A Escobedo MD [address] [place] [address] 195 [place] [address] Assigned Surgical Provider 02/07/23 04/15/23 Geri Loza PA-C [address] [place] [address] Assigned Surgical Provider 04/16/23 Raina Patterson APRN WIRE DRAWING MACHINE TENDER [address] [place] 0[address]695 Nurse Practitioner Cardiovascular Disease 05/11/23 documented as of this encounter
--- OUTSIDE RECORDS SUMMARY | 2024-02-16 09:22 | XMS_ITS | Encounter Summary ---
Author Organization [facility] Address [address] [place] [address] Care Team Providers Care Psychometrician Name Role Phone Roderick Morelos MD Unavailable [phone] Magno Wood MD Unavailable [phone] Sophie Ocasio AuD Unavailable [phone] Henny Rosales GETTER OPERATOR PRIMER AND POWDER CANNING LEADER Unavailable [phone] Unavailable [phone] Kaykay Duarte RN CLINICAL RESOURCE Primary Care Provider Christiane Rodríguez MD Unavailable [phone] Luis A Escobedo MD Unavailable +[phone] Chely Fernandez PA-C Unavailable [phone] Jing Cadena GETTER OPERATOR TRIMMING INSPECTOR Unavailable Radha Lopez [facility] Unavailable [phone] Luis A Escobedo MD Unavailable [phone] Geri LozaC Unavailable [phone] Raina Patterson GETTER OPERATOR PRIMER AND POWDER CANNING LEADER Unavailable [phone] Encounter Details Date Type Department Care Team (Late st Contact Info) Description 10/23/2022 External Order Results [facility] [address] [place] [address] Outside, Provider Class 3 severe obesity with [...] file Legal 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 SUPERVISOR PARTIAL DENTURE DEPARTMENT Gender Identity Not on file Sexual Orientation [...] 10/27/2022. Geri Loza PA-C LAB - BLOOD ORDERABLES Edit ed Result - Final Performing Organization Address [facility]/ZIP Co de Phone Number BREEZE PFT NON-INTERFACED (ONBASE SCANS) * Vitamin B12 (10/23/2022 11:20 AM CDT) Vitamin B12 (External) 294 213 - 816 pg/mL NON-INTERFACED (ONBASE SCANS) Blood BLOOD SPECIMEN / Unknown 10/23/2022 11:20 AM CDT Narrative BREEZE PFT - 10/24/2022 1:41 PM CDT Verified by Gisel Izaguirre on 10/24/2022. Geri Loza PA-C LAB - BLOOD ORDERABLES Edit ed Result - Final MATTIEE PFT NON-INTERFACED (ONBASE SCANS) * Ferritin (10/23/2022 11:20 AM CDT) Ferritin (External) 88 9 - 204 ng/mL NON-INTERFACED (ONBASE SCANS) Blood BLOOD SPECIMEN / Unknown 10/23/2022 11:20 AM CDT Narrative BREEZE PFT - 10/24/2022 1:41 PM CDT Verified by Gisel Izaguirre on 10/24/2022. Geri Loza PA-C LAB - BLOOD ORDERABLES Edit ed Result - Final Performing Organization Address [facility] de Phone Number MELIDAEZE PFT NON-INTERFACED (ONBASE SCANS) * Parathyroid Hormone Intact (10/23/2022 11:20 AM CDT) Parathyroid Hormone Intact (External) 65 10 - 100 pg/mL NON-INTERFACED (ONBASE SCANS) Blood BLOOD SPECIMEN / Unknown 10/23/2022 11:20 AM CDT Narrative MELIDAEZE PFT - 10/24/2022 1:35 PM CDT Verified by Gisel Izaguirre on 10/24/2022. Geri Loza PA-C LAB - BLOOD ORDERABLES Edit ed Result - Final Performing Organization Address [facility] de Phone Number MATTIEE PFT NON-INTERFACED (ONBASE SCANS) * (ABNORMAL) Lipid [...] d Result - Final Performing Organization Address [facility]/ZIP Co de Phone Number LUIS PFT NON-INTERFACED (ONBASE SCANS) * Hepatic function [...] d Result - Final Performing Organization Address [facility]/State/ZIP Co de Phone Number LUIS PFT NON-INTERFACED (ONBASE SCANS) * (ABNORMAL) Basic [...] - Final LUIS PFT NON-INTERFACED (ONBASE SCANS) documented in this encounter Visit Diagnoses Diagnosis Class 3 severe obesity with serious comorbidity and body mass index (BMI) of 45.0 to 49.9 in adult, unspecified obesity type (H) documented in this encounter Additional Health Concerns Active Problems Noted Date Diagnosed Date BRIAN PATHWAY SURGERY IS SCHEDULED 10/15/2022 documented as of this encounter Care Teams Psychometrician Relationship Specialty Start [place] [address] [place] [address] PCP - General 10/15/22 Roderick Morelos MD [address] [place] 110805 Cardiovascular Disease 02/03/22 Magno Wood MD 420 [facility] 396 [place] [address] Otolaryngology 02/21/22 Sophie Ocasio AuD [address] [place] [address] Paranormal Investigator Audiology 02/21/22 Henny Rosales APRN PRIMER AND POWDER CANNING LEADER [address] [place] [address] Assigned Heart and Vascular Provider 08/09/22 02/12/[address] [place] [address] 875695 Registered Dietitian Dietitian, Registered 09/02/22 Christiane Rodríguez MD [address] [place] [address] 396 [place], [place] 0[address]85 Otolaryngology 11/12/22 Luis A Escobedo MD 420 [facility] 195 [place], [place] 555015 Assigned Surgical Provider 11/01/22 11/28/22 Chely Fernandez PA-C [address] [place] [address] 284335 Assigned Surgical Provider 11/29/22 02/06/23 Jing Cadena APRN TRIMMING INSPECTOR 420 [facility] 450 [place], [place] 763235 Clinical Nurse Specialist Anesthesiology 01/15/23 Radha Lopez, [facility] [address] [place] [address] Pharmacist Pharmacist 01/16/23 Luis A Escobedo MD [address] [place] [address] 195 [place] [address] Assigned Surgical Provider 02/07/23 04/15/23 Geri Loza PA-C [address] [place] [address] Assigned Surgical Provider 04/16/23 Raina Patterson APRN PRIMER AND POWDER CANNING LEADER [address] [place] [address] Nurse Practitioner Cardiovascular Disease 05/11/23 documented as of this encounter
--- OUTSIDE RECORDS SUMMARY | 2024-02-16 09:22 | XMS_ITS | Encounter Summary ---
Author Organization [facility] Address [address] [place] [address] Care Team Providers Care Metallurgical Analyst Name Role Phone Roderick Morelos MD Unavailable [phone] Magno Wood MD Unavailable [phone] Sophie Ocasio AuD Unavailable [phone] Henny Rosales PET TRAINER VARNISH MIXER Unavailable [phone] Unavailable [phone] Kaykay Duarte PSYCHIATRIC TECHNICIAN ASSISTANT Primary Care Provider [phone] Christiane Rodríguez MD Unavailable [phone] Luis A Escobedo MD Unavailable +[phone] Chely Fernandez PA-C Unavailable [phone] Jing Cadena PET TRAINER CONSTRUCTION CREW MEMBER Unavailable Radha Lopez [facility] Unavailable [phone] Luis A Escobedo MD Unavailable [phone] Geri LozaC Unavailable [phone] Raina Patterson PET TRAINER VARNISH MIXER Unavailable [phone] Encounter Details Date Type Department Care Team (Late st Contact Info) Description 11/21/2022 MyC Medical Advice [facility] [place] 9[address] [facility] 4th [place] [address] Geri Loza PA-C 909 [place], [place] [phone] Social History Tobacco Use Types Packs/Day Years Used Date Smoking Tobacco: Never Smokeless Tobacco: Never Alcohol Use Standard Drinks/Week Comments Yes 0 (1 standard drink = 0.6 oz pur e alcohol) socially PHQ-2 Answer Date Recorded PHQ-2 Score 0 11/05/2022 Comments No Sex and Gender Information Value Date Recorded Sex Assigned at Not on file Legal 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 CENTRAL STERILE SUPPLY TECHNICIAN Gender Identity Not on file Sexual [...] documented as of this encounter Care Teams Metallurgical Analyst Relationship Specialty Start Date End Date Kaykay Duarte, PSYCHIATRIC TECHNICIAN ASSISTANT [address] [place] [address] PCP - General 10/15/22 Roderick Morelos MD [address] [place] [address] Cardiovascular Disease 02/03/22 Magno Wood MD [address] [place] [address] 396 [place] [address] Otolaryngology 02/21/22 Sophie Ocasio AuD 909 [place] [address] Stitcher Standard Machine Audiology 02/21/22 Henny Rosales, PET TRAINER VARNISH MIXER [address] [place] [address] Assigned Heart and Vascular Provider 08/09/22 02/12/[address] [place] [address] [phone] Registered Dietitian Dietitian, Registered 09/02/22 Christiane Rodríguez MD 420 [facility] 396 [place], [place] 312065 Otolaryngology 11/12/22 Luis A Escobedo MD 420 [facility] 195 [place], [place] 613385 Assigned Surgical Provider 11/01/22 11/28/22 Chely Fernandez PA-C [address] [place] [address] 727175 Assigned Surgical Provider 11/29/22 02/06/23 Jing Cadena, PET TRAINER CONSTRUCTION CREW MEMBER 420 [facility] 450 [place], [place] 9[address]35 Clinical Nurse Specialist Anesthesiology 01/15/23 Radha Lopez, [facility] [address] [place] [address] Pharmacist Pharmacist 01/16/23 Luis A Escobedo MD [address] [place] [address] 195 [place] [address] Assigned Surgical Provider 02/07/23 04/15/23 Geri Loza PA-C [address] [place] [address] Assigned Surgical Provider 04/16/23 Raina Patterson APRN VARNISH MIXER [address] [place] 043775 Nurse Practitioner Cardiovascular Disease 05/11/23 documented as of this encounter
--- OUTSIDE RECORDS SUMMARY | 2024-02-16 09:22 | XMS_ITS | Encounter Summary ---
Author Organization [place] Address [address] [place] [address] 61237 Care Team Providers Care Textile Artist Name Role Phone Roderick Morelos MD Unavailable [phone] Magno Wood MD Unavailable [phone] Sophie Ocasio AuD Unavailable [phone] Henny Rosales AREA OPERATIONS MANAGER COAL DIGGER Unavailable [phone] [facility] [place] [facility] Primary Care Pr ovider Sharee Oliva RD Unavailable [phone] Kaykay Duarte SALES REPRESENTATIVE ADVERTISING Primary Care Provider Christiane Rodríguez MD Unavailable Luis A Escobedo MD Unavailable [phone] Chely FernandezC Unavailable [phone] Jing Cadena APRN [facility] Unavailable Radha Lopez [facility] Unavailable [phone] Luis A Escobedo MD Unavailable [phone] Geri LozaC Unavailable Raina Patterson APRN COAL DIGGER Unavailable Reason for Visit * Reason Onset Date Comments Prior Auth - Medication 09/03/2022 Orlistat -PA DENIED Encounter Details Date Type Department Care Team (Late st Contact Info) Description 09/03/2022 Telephone [facility] [address] [place] [address] Geri Loza PA-C [address] [place] [address] [id number] Prior Auth - Medication (Orlistat-PA DENIED ) [...] on file Legal 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 Gastric sleeve was [facility] 08/[facility]/[address] [facility] [address] Bar[facility]. Starting weight 338lb, BMI 56.25. She felt that instantly did not see expected weight loss results. Per chart review had lost 8lbsby 3 months post op and has followed up with [facility] since. She has lost 38lbs since surgery, andhas been able maintain weight loss of 305lbs for many years. However, continues to feel that is inadequet weight loss and wanted to discuss a conversion to RYGB today. Insurance Name: Insurance ID: Pharmacy Information (if different than what is on RX) Name: [id number] - [place] - [id number] - [id number] [place] * Telephone Encounter - Rowena Small - 09/03/2022 8:44 AM CDT Reason for Call: Prior Auth Detailed comments: Pt states [facility] said a PA is [...] on filedocumented in this encounter Care Teams Textile Artist Relationship Specialty Start [place] [address] [place] [address] PCP - General 08/19/22 10/14/22 [place] [address] [facility] [place] [address] PCP - General 10/15/22 Roderick Morelos MD [address] [place] [address] Cardiovascular Disease 02/03/22 Magno Wood MD [address] [place] [address] 914845 Otolaryngology 02/21/22 Sophie Ocasio AuD [address] [place] [address] 387215 Tool And Fixture Repairer Audiology 02/21/22 Henny Rosales APRN COAL DIGGER [address] [place] [phone] Assigned Heart and Vascular Provider 08/09/22 02/12/[address] [place] [address] 93692 Registered Dietitian Dietitian, Registered 09/02/22 Christiane Rodríguez MD [address] [place] [address] 396 [place] [address] Otolaryngology 11/12/22 Luis A Escobedo MD [address] [place] [address] 195 [place], [place] 931645 Assigned Surgical Provider 11/01/22 11/28/22 Chely Fernandez PA-C [address] [place] [address] 627945 Assigned Surgical Provider 11/29/22 02/06/23 Jing Cadena, AREA OPERATIONS MANAGER [facility] [address] [place] [address] 450 [place], [place] 510885 Clinical Nurse Specialist Anesthesiology 01/15/23 Radha Lopez, [facility] [address] [place] [address] 714915 Pharmacist Pharmacist 01/16/23 Luis A Escobedo MD [address] [place] [address] 098[address] Assigned Surgical Provider 02/07/23 04/15/23 Geri Loza PA-C [address] [place] [address] 39988 Assigned Surgical Provider 04/16/23 Raina Patterson, AREA OPERATIONS MANAGER COAL DIGGER [address] [place] [address] Nurse Practitioner Cardiovascular Disease 05/11/23 documented as of this encounter
--- OUTSIDE RECORDS SUMMARY | 2024-02-16 09:22 | XMS_ITS | Encounter Summary ---
Author Organization [facility] Address [address] [place] [address] 70903 Care Team Providers Care Food Service Assistant Name Role Phone Roderick Morelos MD Unavailable [phone] Magno Wood MD Unavailable [phone] Sophie Oacsio AuD Unavailable [phone] Henny Rosales TRAFFIC CONTROL SIGNALER ADULT SCHOOL TEACHER Unavailable Sharee Oliva RD Unavailable [phone] Kaykay Duarte SPORTS THERAPIST Primary Care Provider Christiane Rodríguez MD Unavailable [phone] Chely FernandezC Unavailable [phone] Jing Cadena APRN LOCKSTITCH BINDER Unavailable Radah Lopez [facility] Unavailable Luis A Escobedo MD Unavailable [phone] Geri LozaC Unavailable [phone] Raina Patterson TRAFFIC CONTROL SIGNALER ADULT SCHOOL TEACHER Unavailable [phone] Encounter Details Date Type Department Care Team (Late st Contact Info) Description 01/07/2023 [facility] [place] [address] 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 [address] PCP - General 10/15/22 Roderick Morelos MD [address] [place], [place] 125885 Cardiovascular Disease 02/03/22 Magno Wood MD [address] [place] [address] 396 [place], [place] 688225 Otolaryngology 02/21/22 Sophie Ocasio AuD [address] [place] [address] 867815 Braider Setter Audiology 02/21/22 Henny Rosales, TRAFFIC CONTROL SIGNALER ADULT SCHOOL TEACHER [address] [place] [address] Assigned Heart and Vascular Provider 08/09/22 02/12/[address] [place] [address] 177645 Registered Dietitian Dietitian, Registered 09/02/22 Christiane Rodríguez MD [address] [place] [address] 396 [place] [address] Otolaryngology 11/12/22 Chely Fernandez PA-C [address] [place] [address] 196515 Assigned Surgical Provider 11/29/22 02/06/23 Jing Cadena, TRAFFIC CONTROL SIGNALER LOCKSTITCH BINDER [address] [place] [address] 450 [place], [place] 819145 Clinical Nurse Specialist Anesthesiology 01/15/23 Radha Lopez, [facility] [address] [place] [address] [phone] Pharmacist Pharmacist 01/16/23 Luis A Escobedo MD [address] [place] [address] 195 [place], [place] 347365 Assigned Surgical Provider 02/07/23 04/15/23 Geri Loza PA-C [address] [place] [address] 980015 Assigned Surgical Provider 04/16/23 Raina Patterson APRN [facility] [address] [place] [address] Nurse Practitioner Cardiovascular Disease 05/11/23 documented as of this encounter
--- OUTSIDE RECORDS SUMMARY | 2024-02-16 09:22 | XMS_ITS | Encounter Summary ---
Author Organization [facility] Address [address] [place] [address] 599[address] Care Team Providers Care Cooler Service Supervisor Name Role Phone Roderick Morelos MD Unavailable [phone] Magno Wood MD Unavailable [phone] Sophie Ocasio AuD Unavailable [phone] Henny Rosales TRANSPORT NURSE COMMANDING OFFICER GARAGE Unavailable [phone] Unavailable [phone] Kaykay Duarte MANAGER MERCHANDISING Primary Care Provider [phone] Christiane Rodríguez MD Unavailable [phone] Luis A Escobedo MD Unavailable [phone] Chely Fernandez PA-C Unavailable [phone] Jing Cadena TRANSPORT NURSE STUDENT WORKER Unavailable Radha Lopez [facility] Unavailable [phone] Luis A Escobedo MD Unavailable [phone] Geri LozaC Unavailable [phone] Raina Patterson TRANSPORT NURSE COMMANDING OFFICER GARAGE Unavailable [phone] Encounter Details Date Type Department Care Team (Late st Contact Info) Description 10/23/2022 External Order Results [facility] [address] [place] [address] Outside, Provider Class 3 severe obesity with [...] on file Legal 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 OPTICAL MODEL MAKER AND TESTER Gender Identity Not on file Sexual Orientation [...] BLOOD ORDERABLES Edit ed Result - Final LUIS WORRELL NON-INTERFACED (ONBASE SCANS) documented in this encounter Visit Diagnoses Diagnosis Class 3 severe obesity with serious comorbidity and body mass index (BMI) of 45.0 to 49.9 in adult, unspecified obesity type (H) documented in this encounter Additional Health Concerns Active Problems Noted Date Diagnosed Date BRIAN PATHWAY SURGERY IS SCHEDULED 10/15/2022 documented as of this encounter Care Teams Cooler Service Supervisor Relationship Specialty Start [place] [address] [address] [place], [place] 894517 PCP - General 10/15/22 Roderick Morelos MD [address] [place], [place] 587405 Cardiovascular Disease 02/03/22 Magno Wood MD 420 [facility] 396 [place], [place] [phone] Otolaryngology 02/21/22 Sophie Ocasio AuD 909 [place], [place] [phone] Work Order Clerk Audiology 02/21/22 Henny Rosales, TRANSPORT NURSE COMMANDING OFFICER GARAGE [address] [place] [address] Assigned Heart and Vascular Provider 08/09/22 02/12/[address] [place] [address] 169735 Registered Dietitian Dietitian, Registered 09/02/22 Christiane Rodríguez MD [address] [place] [address] 396 [place] [address] Otolaryngology 11/12/22 Luis A Escobedo MD [address] [place] [address] [phone] Assigned Surgical Provider 11/01/22 11/28/22 Chely Fernandez PA-C [address] [place] [address] 188205 Assigned Surgical Provider 11/29/22 02/06/23 Jing Cadena, TRANSPORT NURSE STUDENT WORKER [address] [place] [address] 450 [place], [place] 501875 Clinical Nurse Specialist Anesthesiology 01/15/23 Radha Lopez [facility] [address] [place] [address] 559705 Pharmacist Pharmacist 01/16/23 Luis A Escobedo MD [address] [place] [address] 472385 Assigned Surgical Provider 02/07/23 04/15/23 Geri Loza PA-C 909 [place] [address] Assigned Surgical Provider 04/16/23 Raina Patterson APRN CNP [address] [facility] [address] [place] [address] Nurse Practitioner Cardiovascular Disease 05/11/23 documented as of this encounter
--- OUTSIDE RECORDS SUMMARY | 2024-02-16 09:22 | XMS_ITS | Encounter Summary ---
Author Organization [facility] Address [address] [place] [address]32 Care Team Providers Care Veterinary Virus Serum Inspector Name Role Phone Roderick Morelos MD Unavailable [phone] Magno Wood MD Unavailable [phone] Sophie Ocasio AuD Unavailable [phone] Henny Rosales COUNTY JUDGE WIRE GALVANIZER Unavailable [phone] [facility] Primary Care Pr ovider Sharee Oliva RD Unavailable [phone] Kaykay Duarte STEWARDESSES TEACHER Primary Care Provider Christiane Rodríguez MD Unavailable [phone] Luis A Escobedo MD Unavailable [phone] Chely FernandezC Unavailable [phone] Jing Cadena APRN FURNACE OPERATOR AND TENDER Unavailable Radha Lopez [facility] Unavailable [phone] Luis A Escobedo MD Unavailable [phone] Geri LozaC Unavailable [phone] Raina Patterson APRN WIRE GALVANIZER Unavailable [phone] Encounter Details Date Type Department Care Team (Late st Contact Info) Description 09/09/2022 Telephone [facility] [address] [place] [address] Geri Loza PA-C 909 [place] [address] Social History Tobacco Use Types Packs/Day Years Used Date Smoking Tobacco: Never Smokeless Tobacco: Never Alcohol Use Standard Drinks/Week Comments Yes 0 (1 standard drink = 0.6 oz pur e alcohol) socially PHQ-2 Answer Date Recorded PHQ-2 Score 0 09/02/2022 Comments No Sex and Gender Information Value Date Recorded Sex Assigned at Not on file Legal 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 TELEVISION SPECIALIST Gender Identity Not on file Sexual Orientation [...] Geri Gaytan had suggested Marquez. Please advise. [phone] okay to leave VM or send MyChart, patient isn't always able to answer when she's working documented in this encounter Plan of Treatment Not on file documented as of this encounter Visit Diagnoses Not on filedocumented in this encounter Care Teams Veterinary Virus Serum Inspector Relationship Specialty Start [place] [address] [place] [address] PCP - General 08/19/22 10/14/22 Kaykay Duarte, [place]LLERMO [address] [place] [address] PCP - General 10/15/22 Roderick Morelos MD [address] [place] [address] Cardiovascular Disease 02/03/22 Magno Wood MD [address] [place] [address] Otolaryngology 02/21/22 Sophie Ocasio AuD [address] [place] [address] 86734 Skin Diver Audiology 02/21/22 Henny Rosales APRN WIRE GALVANIZER [address] [place] [address] Assigned Heart and Vascular Provider 08/09/22 02/12/[address] [place] [address] Registered Dietitian Dietitian, Registered 09/02/22 Christiane Rodríguez MD [address] [place] [address] 16745 Otolaryngology 11/12/22 Luis A Escobedo MD [address] [place] [address] 09480 Assigned Surgical Provider 11/01/22 11/28/22 Chely Fernandez PA-C [address] [place] [address] 887475 Assigned Surgical Provider 11/29/22 02/06/23 Jing Cadena APRN FURNACE OPERATOR AND TENDER 420 [facility] 450 [place], [place] 360465 Clinical Nurse Specialist Anesthesiology 01/15/23 Radha Lopez, [facility] [address] [place] [address] 319955 Pharmacist Pharmacist 01/16/23 Luis A Escobedo MD 420 [facility] 195 [place], [place] 441905 Assigned Surgical Provider 02/07/23 04/15/23 Geri Loza PA-C [address] [place] [address] 730875 Assigned Surgical Provider 04/16/23 Raina Patterson APRN WIRE GALVANIZER [address] [place], [place] 881265 Nurse Practitioner Cardiovascular Disease 05/11/23 documented as of this encounter
--- OUTSIDE RECORDS SUMMARY | 2024-02-16 09:22 | XMS_ITS | Encounter Summary ---
Author Organization [place] Address [address] [place] [address]234 Care Team Providers Care Social Service Coordinator Name Role Phone Roderick Morelos MD Unavailable [phone] Magno Wood MD Unavailable [phone] Sophie Ocasio AuD Unavailable [phone] Henny Rosales BIOPROCESS ENGINEER CAD LIBRARIAN Unavailable [phone] [facility] Pr ovider Sharee Oliva RD Unavailable [phone] Kaykay Duarte FANCY PACKER Primary Care Provider Christiane Rodríguez MD Unavailable Luis A Escobedo MD Unavailable [phone] Chely FernandezC Unavailable [phone] Jing Cadena APRN DESIGN INSERTER Unavailable Radha Lopez [facility] Unavailable [phone] Luis A Escobedo MD Unavailable [phone] Geri LozaC Unavailable Raina Patterson APRN CAD LIBRARIAN Unavailable Encounter Details Date Type Department Care Team (Late st Contact Info) Description 09/29/2022 [facility] [address] 4th [place] [address] Kang Griffiths Social History Tobacco Use Types Packs/Day Years Used Date Smoking Tobacco: Never Smokeless Tobacco: Never Alcohol Use Standard Drinks/Week Comments Yes 0 (1 standard drink = 0.6 oz pur e alcohol) socially PHQ-2 Answer Date Recorded PHQ-2 Score 0 09/29/2022 Comments No Sex and Gender Information Value Date Recorded Sex Assigned at Not on file Legal 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 CLINIC ASSISTANT Gender Identity Not on file Sexual Orientation Not on file documented as of this encounter Plan of Treatment Not on file documented as of this encounter Visit Diagnoses Not on filedocumented in this encounter Care Teams Social Service Coordinator Relationship Specialty Start Date End Date Clinic, [facility] [place] [employer] [address] [place] [address] PCP - General 08/19/22 10/14/22 Kaykay Duarte NP [address] [place] [address] [facility] [place] [address] PCP - General 10/15/22 Roderick Morelos MD [address] [place] [address] Cardiovascular Disease 02/03/22 Magno Wood MD [address] [place] [address] 396 [place], [place] [phone] Otolaryngology 02/21/22 Sophie Ocasio, AuD [address] [place] [address] 443245 Assessment Technician Audiology 02/21/22 Henny Rosales APRN CAD LIBRARIAN [address] [place] [address] Assigned Heart and Vascular Provider 08/09/22 02/12/[address] [place] [address] 886005 Registered Dietitian Dietitian, Registered 09/02/22 Christiane Rodríguez MD [address] [place] [address] 396 [place], [place] 382395 Otolaryngology 11/12/22 Luis A Escobedo MD [address] [place] [address] 396385 Assigned Surgical Provider 11/01/22 11/28/22 Chely Fernandez PA-C [address] [place] [address] 625565 Assigned Surgical Provider 11/29/22 02/06/23 Jing Cadena APRN DESIGN INSERTER [address] [place] [address] 450 [place], [place] 930415 Clinical Nurse Specialist Anesthesiology 01/15/23 Radha Lopez [facility] [address] [place] [address] 478425 Pharmacist Pharmacist 01/16/23 Luis A Escobedo MD [address] [place] [address] 195 [place], [place] 067215 Assigned Surgical Provider 02/07/23 04/15/23 Geri Loza PA-C 9 [place] [address] Assigned Surgical Provider 04/16/23 Raina Patterson APRN CAD LIBRARIAN [address] [facility] [address] [place] [address] Nurse Practitioner Cardiovascular Disease 05/11/23 documented as of this encounter
--- OUTSIDE RECORDS SUMMARY | 2024-02-16 09:22 | XMS_ITS | Encounter Summary ---
Author Organization [place] Address [address] [place] [address] Care Team Providers Care Technical Fellow Name Role Phone Roderick Morelos MD Unavailable [phone] Magno Wood MD Unavailable [phone] Sophie Ocasio AuD Unavailable Henny Rosales BUCKLE ATTACHER RIVET CATCHER Unavailable Sharee Oliva RD Unavailable [phone] Kaykay Duarte TEA TREE FARMER Primary Care Provider [phone] Christiane Rodríguez MD Unavailable Chely FernandezC Unavailable [phone] Jing Cadena APRN ASSOCIATE PROFESSOR OF EDUCATION Unavailable Radha Lopez [facility] Unavailable Luis A Escobedo MD Unavailable [phone] Geri LozaC Unavailable [phone] Raina Patterson BUCKLE ATTACHER RIVET CATCHER Unavailable [phone] Encounter Details Date Type Department Care Team (Late st Contact Info) Description 12/04/2022 [facility] [place] [id number] [facility] 4th [place] [address] Kang Griffiths Social History Tobacco Use Types Packs/Day Years Used Date Smoking Tobacco: Never Smokeless Tobacco: Never Alcohol Use Standard Drinks/Week Comments Yes 0 (1 standard drink = 0.6 oz pur e alcohol) socially PHQ-2 Answer Date Recorded PHQ-2 Score 0 12/04/2022 Comments No Sex and Gender Information Value Date Recorded Sex Assigned at Not on file Legal 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 QUALITY OFFICER Gender Identity Not on file Sexual [...] documented as of this encounter Care Teams Technical Fellow Relationship Specialty Start Date End Date Kaykay Duarte TEA TREE FARMER [address] [place] [address] PCP - General 10/15/22 Roderick Morelos MD [address] [place] [address] Cardiovascular Disease 02/03/22 Magno Wood MD [address] [place] [address] 396 [place], [place] 627525 Otolaryngology 02/21/22 Sophie Ocasio, AuD [address] [place] [address] 9[address] Receiver/Laborer Audiology 02/21/22 Henny Rosales, BUCKLE ATTACHER RIVET CATCHER [address] [place] [address] Assigned Heart and Vascular Provider 08/09/22 02/12/[address] 9 [place], [place] 367425 Registered Dietitian Dietitian, Registered 09/02/22 Christiane Rodríguez MD 420 [facility] 396 [place], [place] 850005 Otolaryngology 11/12/22 Chely Fernandez PA-C [address] [place] [address] 726655 Assigned Surgical Provider 11/29/22 02/06/23 Jing Cadena, BUCKLE ATTACHER ASSOCIATE PROFESSOR OF EDUCATION 420 [facility] 450 [place], [place] 831385 Clinical Nurse Specialist Anesthesiology 01/15/23 Radha Lopez, [facility] [address] [place] [address] 188735 Pharmacist Pharmacist 01/16/23 Luis A Escobedo MD 420 [facility] 195 [place], [place] 510105 Assigned Surgical Provider 02/07/23 04/15/23 Geri Loza PA-C 909 [place] [address] Assigned Surgical Provider 04/16/23 Raina Patterson APRN RIVET CATCHER [address] [place] [address] Nurse Practitioner Cardiovascular Disease 05/11/23 documented as of this encounter
--- OUTSIDE RECORDS SUMMARY | 2024-02-16 09:22 | XMS_ITS | Encounter Summary ---
Author Organization [place] Address [address] [place] [address] Care Team Providers Care Sales And Service Consultant Name Role Phone Roderick Morelos MD Unavailable [phone] Magno Wood MD Unavailable Sohpie Ocasio AuD Unavailable [phone] Henny Rosales DATABASE ADMINISTRATION PROJECT MANAGER HAZARDOUS WASTE REMOVER Unavailable [phone] [facility] Primary Care Pr ovider Sharee Oliva RD Unavailable [phone] Kaykay Duarte REAL ESTATE SERVICES ADMINISTRATOR Primary Care Provider Christiane Rodríguez MD Unavailable Luis A Escobedo MD Unavailable [phone] Chely FernandezC Unavailable [phone] Jing Cadena APRN DELIVERY TABLE FEEDER Unavailable Radha Lopez [facility] Unavailable [phone] Luis A Escobedo MD Unavailable [phone] Geri LozaC Unavailable Raina Patterson APRN HAZARDOUS WASTE REMOVER Unavailable Encounter Details Date Type Department Care Team (Late st Contact Info) Description 09/02/2022 MyC Medical Advice [facility] [place] [address] [place] [address] [address] [place] [phone] Geri Loza PA-C 909 [place], [place] 959205 Social History Tobacco Use Types Packs/Day Years Used Date Smoking Tobacco: Never Smokeless Tobacco: Never Alcohol Use Standard Drinks/Week Comments Yes 0 (1 standard drink = 0.6 oz pur e alcohol) socially PHQ-2 Answer Date Recorded PHQ-2 Score 0 09/02/2022 Comments No Sex and Gender Information Value Date Recorded Sex Assigned at Not on file Legal 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 DIRECTOR OF LOSS PREVENTION Gender Identity Not on file Sexual Orientation [...] filedocumented in this encounter Care Teams Sales And Service Consultant Relationship Specialty Start [place] [address] [place] [address] PCP - General 08/19/22 10/14/22 Kaykay Duarte REAL ESTATE SERVICES ADMINISTRATOR [address] [place] [address] PCP - General 10/15/22 Roderick Morelos MD [address] [place] [address] Cardiovascular Disease 02/03/22 Magno Wood MD 420 [facility] 396 [place] [address] Otolaryngology 02/21/22 oSphie Ocasio AuD 909 [place] [address] Surgical Services Manager Audiology 02/21/22 Henny Rosales, DATABASE ADMINISTRATION PROJECT MANAGER HAZARDOUS WASTE REMOVER [address] [place] [phone] Assigned Heart and Vascular Provider 08/09/22 02/12/[address] [place] [address] 504195 Registered Dietitian Dietitian, Registered 09/02/22 Christiane Rodríguez MD [address] [facility] 396 [place], [place] 4[address]15 Otolaryngology 11/12/22 Luis A Esocbedo MD [address] [place] [address] 195 [place], [place] 823275 Assigned Surgical Provider 11/01/22 11/28/22 Chely Fernandez PA-C [address] [place] [address] [id number] Assigned Surgical Provider 11/29/22 02/06/23 Jing Cadena APRN DELIVERY TABLE FEEDER [address] [facility] 450 [place], [place] 575985 Clinical Nurse Specialist Anesthesiology 01/15/23 Radha Lopez, [facility] [address] [place] [address] Pharmacist Pharmacist 01/16/23 Luis A Escobedo MD [address] [place] [address] 195 [place] [address] Assigned Surgical Provider 02/07/23 04/15/23 Geri Loza PA-C [address] [place] [address] Assigned Surgical Provider 04/16/23 Raina Patterson APRN HAZARDOUS WASTE REMOVER [address] [place], [place] 288105 Nurse Practitioner Cardiovascular Disease 05/11/23 documented as of this encounter
--- OUTSIDE RECORDS SUMMARY | 2024-02-16 09:22 | XMS_ITS | Encounter Summary ---
Author Organization [place] Address [address] [place] [address] Care Team Providers Care Optometrist Owner Name Role Phone Roderick Morelos MD Unavailable [phone] Magno Wood MD Unavailable [phone] Sophie Ocasio AuD Unavailable [phone] Henny Rosales MUTUAL FUND ANALYST CAMPUS AIDE Unavailable [phone] [facility] [place] [facility] Primary Care Pr ovider Sharee Oliva RD Unavailable Kaykay Duarte PORCELAIN SLUSHER Primary Care Provider Christiane Rodríguez MD Unavailable Luis A Escobedo MD Unavailable [phone] Chely FernandezC Unavailable [phone] Jing Cadena APRN MAIL SORTER Unavailable Radha Lopez [facility] Unavailable [phone] Luis A Escobedo MD Unavailable [phone] Geri LozaC Unavailable Raina Patterson APRN CAMPUS AIDE Unavailable Encounter Details Date Type Department Care Team (Late st Contact Info) Description 09/15/2022 MyC Medical Advice [facility] [address] 4th [place] [address] Maria Guadalupe Wolfe Social History [...] on file Legal 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 BASKET HAND WEAVER Gender Identity Not on file Sexual Orientation Not on file documented as of this encounter Plan of Treatment Not on file documented as of this encounter Visit Diagnoses Not on filedocumented in this encounter Care Teams Optometrist Owner Relationship Specialty Start Date End Date Clinic, [place] [address] [place] [address] PCP - General 08/19/22 10/14/22 Kaykay Duarte, PORCELAIN SLUSHER [address] [place] [address] [place] [address] PCP - General 10/15/22 Roderick Morelos MD [address] [place] [address] Cardiovascular Disease 02/03/22 Magno Wood MD [address] [place] [address] Otolaryngology 02/21/22 Sophie Ocasio, AuD [address] [place] [address] [phone] Concrete Placement Equipment Operator Audiology 02/21/22 Henny Rosales APRN CAMPUS AIDE [address] [place] [address] Assigned Heart and Vascular Provider 08/09/22 02/12/[address] [place] [address] 580315 Registered Dietitian Dietitian, Registered 09/02/22 Christiane Rodríguez MD [address] [place] [address] 892485 Otolaryngology 11/12/22 Luis A Escobedo MD [address] [place] [address] 984885 Assigned Surgical Provider 11/01/22 11/28/22 Chely Fernandez PA-C [address] [place] [address] 697045 Assigned Surgical Provider 11/29/22 02/06/23 Jing Cadena APRN MAIL SORTER [address] [place] [address] 450 [place], [place] 609195 Clinical Nurse Specialist Anesthesiology 01/15/23 Radha Lopez, [facility] [address] [place] [address] 404445 Pharmacist Pharmacist 01/16/23 Luis A Escobedo MD [address] [place] [address] 243015 Assigned Surgical Provider 02/07/23 04/15/23 Geri Loza PA-C 9 [place] [address] Assigned Surgical Provider 04/16/23 Raina Patterson APRN CAMPUS AIDE [address] [facility] [address] [place] [address] Nurse Practitioner Cardiovascular Disease 05/11/23 documented as of this encounter
--- OUTSIDE RECORDS SUMMARY | 2024-02-16 09:22 | XMS_ITS | Encounter Summary ---
Author Organization [place] Address [address] [place] [address] Care Team Providers Care Global President Name Role Phone Roderick Morelos MD Unavailable [phone] Magno Wood MD Unavailable [phone] Sophie Ocasio AuD Unavailable [phone] Henny Rosales BINGO CLERK DISK OPERATOR Unavailable [phone] [facility] Primary Care Pr ovider Sharee Oliva RD Unavailable [phone] Kaykay Duarte HAND PRESSER Primary Care Provider Christiane Rodríguez MD Unavailable Luis A Escobedo MD Unavailable [phone] Chely FernandezC Unavailable [phone] Jing Cadena APRN [employer] FLATBED DRIVER Unavailable [phone] Radha Lopez [facility] Unavailable [phone] Luis A Escobedo MD Unavailable [phone] Geri LozaC Unavailable [phone] Raina Patterson APRN DISK OPERATOR Unavailable Encounter Details Date Type Department Care Team (Late st Contact Info) Description 09/15/2022 [facility] [address] 4th [place] [address] Kang Griffiths Social History Tobacco [...] on file Legal 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 BOAT OPERATOR Gender Identity Not on file Sexual Orientation Not on file documented as of this encounter Plan of Treatment Not on file documented as of this encounter Visit Diagnoses Not on filedocumented in this encounter Care Teams Global President Relationship Specialty Start Date End Date Clinic, [place] [address] [place] [address] PCP - General 08/19/22 10/14/22 Kaykay Duarte, HAND PRESSER [address] [place] [address] [place] [address] PCP - General 10/15/22 Roderick Morelos MD [address] [place] [address] Cardiovascular Disease 02/03/22 Magno Wood MD [address] [place] [address] Otolaryngology 02/21/22 Sophie Ocasio, AuD [address] [place] [address] [phone] Retail Salesman Audiology 02/21/22 Henny Roslaes APRN DISK OPERATOR [address] [place] [address] Assigned Heart and Vascular Provider 08/09/22 02/12/[address] [place] [address] [phone] Registered Dietitian Dietitian, Registered 09/02/22 Christiane Rodríguez MD [address] [place] [address] 483925 Otolaryngology 11/12/22 Luis A Escobedo MD [address] [place] [address] 065505 Assigned Surgical Provider 11/01/22 11/28/22 Chely Fernandez PA-C [address] [place] [address] 054705 Assigned Surgical Provider 11/29/22 02/06/23 Jing Cadena APRN [employer] FLATBED DRIVER [address] [place] [address] 450 [place], [place] 327135 Clinical Nurse Specialist Anesthesiology 01/15/23 Radha Lopez, [facility] [address] [place] [address] 674995 Pharmacist Pharmacist 01/16/23 Luis A Escobedo MD [address] [place] [address] 579085 Assigned Surgical Provider 02/07/23 04/15/23 Geri Loza PA-C 9 [place] [address] Assigned Surgical Provider 04/16/23 Raina Patterson APRN DISK OPERATOR [address] [facility] [address] [place] [address] Nurse Practitioner Cardiovascular Disease 05/11/23 documented as of this encounter
--- OUTSIDE RECORDS SUMMARY | 2024-02-16 09:23 | XMS_ITS | Encounter Summary ---
Author Organization [place] Address [address] [place] [address] Care Team Providers Care Allergy Specialist Name Role Phone Edda Agudelo PA-C Primary Care Provider Magno Wood MD Unavailable [phone] [facility] Primary Care Provider Unavailable Parth Ellis MD Unavailable [phone] Tati Ayala MD Unavailable [phone] Khris Butt MD Unavailable [phone] MorelosRoderick nunes MD Unavailable [phone] Roderick Morelos MD Unavailable Magno Wood MD Unavailable [phone] Sophie Ocasio Unavailable [phone] Parth Ellis MD Unavailable [phone] Roderick Morelos MD Unavailable [phone] Henny Rosaels APRN WOOL HANDLER Unavailable [phone] [facility] Primary Care Pr ovider Sharee Oliva RD Unavailable Kaykay Duarte GIS CONSULTANT Primary Care Provider Christiane Rodríguez MD Unavailable [phone] Luis A Escobedo MD Unavailable [phone] Chely Fernandez PA-C Unavailable [phone] Jing Cadena APRN [facility] Unavailable [phone] Jessica Radhajessica Marte [facility] Unavailable [phone] Luis A Escobedo MD Unavailable [phone] Geri Loza PA-C Unavailable [phone] Raina Patterson APRN [facility] Unavailable [phone] Encounter Details Date Type Department Care Team (Late st Contact Info) Description 02/08/2007 Office Visit-[facility] Heart [facility] [address] [facility] [address] [place] [address] Reji Li MD [address] [facility] [address] [place] [address] Social History Tobacco Use Types Packs/Day Years Used Date Smoking Tobacco: Never Assessed Comments Unknown Sex and Gender Information Value Date Recorded Sex Assigned at Not on file Legal 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 PACKAGE CHECKER Gender Identity Not on file Sexual Orientation [...] and ALT 18. This is on Vytorin 10. Although this is still not perfect, it is vastly improved from her original numbers which were LDL 194, HDL 51, and triglycerides 148. At this juncture she is already on the highest dose Vytorin. Her LDL goal should be [id number], and ideally below 100, with HDL above [...] lives with and children; Place of - [place]; Hours Worked - 30 hours per week; [...] valve 2. F/U with Imani Ott, MSN, WOOL HANDLER 3 months Reji Li M.D. documented in this encounter Plan of Treatment Not on file documented as of this encounter Visit Diagnoses Not on filedocumented in this encounter Additional Health Concerns Infection Onset Date Last Indicated Resolved Time Rule Out COVID-19 03/19/2020 03/19/2020 03/19/2020 6:22 PM PACKAGE CHECKER COVID-19 03/19/2020 03/19/2020 04/09/2020 11:3 9 PM PACKAGE CHECKER Rule Out COVID-19 06/19/2021 06/19/2021 06/19/2021 1:37 AM CDT Rule Out COVID-19 10/29/2021 10/29/2021 10/29/2021 1:07 AM CDT documented as of this encounter Care Teams Allergy Specialist Relationship Specialty Start Date End Date Edda Agudelo PA-C [facility] [address] [place] [id number] PCP - General 05/04/12 10/11/19 Ernestina Martini 420 [facility] 396 [place] [address] PCP - General Family Practice 10/12/19 [facility] [address] [place] [address] PCP - General 08/19/22 10/14/22 [place] [address] [place] [address] PCP - General 10/15/22 Magno Wood MD [address] [facility] [address] [facility] 396 [place] [address] Otolaryngology 05/29/15 08/02/17 Parth Ellis MD [address] [place] [address] Assigned Heart and Vascular Provider 01/13/20 12/13/21 Tati Ayala MD [address] [place] [address] 200 [place] [address] Assigned Endocrinology Provider 01/13/20 12/29/20 Khris Butt MD [address] [place] [address] Assigned Heart and Vascular Provider 12/14/21 02/14/22 Roderick Morelos MD [address] [place] [address] Cardiovascular Disease 02/03/22 Roderick Morelos MD [address] [place] [address] Assigned Heart and Vascular Provider 02/15/22 07/18/22 Magno Wood MD [address] [place] [address] 396 [place] [address] Otolaryngology 02/21/22 Sophie Ocasio AuD 909 [place] [address] Seating Upholsterer Audiology 02/21/22 Parth Ellis MD [address] [place] 163755 Assigned Heart and Vascular Provider 07/19/22 07/25/22 Roderick Morelos MD [address] [place] [address] Assigned Heart and Vascular Provider 07/26/22 08/08/22 Henny Rosales, ELECTROPHYSIOLOGY SCIENTIST WOOL HANDLER [address] [place] [address] Assigned Heart and Vascular Provider 08/09/22 02/12/24 Sharee Oliva, RD 9 [place], [place] 945425 Registered Dietitian Dietitian, Registered 09/02/22 Christiane Rodríguez MD 420 [facility] 396 [place], [place] 620835 Otolaryngology 11/12/22 Luis A Escobedo MD [address] [place] [address] 195 [place], [place] 036335 Assigned Surgical Provider 11/01/22 11/28/22 Chely Fernandez PA-C [address] [place], [place] 162785 Assigned Surgical Provider 11/29/22 02/06/23 Jing Cadena APRN INGREDIENT HANDLER 420 [facility] 450 [place], [place] 562905 Clinical Nurse Specialist Anesthesiology 01/15/23 Radha Lopez, [facility] 909 [place], [place] 786485 Pharmacist Pharmacist 01/16/23 Luis A Escobedo MD 420 [facility] 195 [place], [place] 849375 Assigned Surgical Provider 02/07/23 04/15/23 Geri Loza PA-C 909 [place], [place] 342395 Assigned Surgical Provider 04/16/23 Raina Patterson, GINA WOOL HANDLER [address] [place] [address] Nurse Practitioner Cardiovascular Disease 05/11/23 documented as of this encounter
--- OUTSIDE RECORDS SUMMARY | 2024-02-16 09:23 | XMS_ITS | Encounter Summary ---
Author Organization [place] Address [address] [place] [address] Care Team Providers Care Identity Access Management Architect Name Role Phone [facility] [place] Primary Care Provider Unavailable Parth Ellis MD Unavailable [phone] Tati Ayala MD Unavailable [phone] Khris Butt MD Unavailable [phone] MorelosRoderick nunes MD Unavailable [phone] Roderick Morelos MD Unavailable [phone] Magno Wood MD Unavailable [phone] Sophie Ocasio Unavailable [phone] Parth Ellis MD Unavailable [phone] MorelosRoderick nunes MD Unavailable [phone] Henny Rosales APRN SCHOOL COUNSELLOR Unavailable [phone] [facility] [place] Primary Care Pr ovider Sharee Oliva RD Unavailable [phone] Kaykay Duarte LOGISTICS OFFICER Primary Care Provider [phone] Christiane Rodríguez MD Unavailable [phone] Luis A Escobedo MD Unavailable [phone] Chely Fernandez PA-C Unavailable [phone] Jing Cadena UNIVERSAL BANKER LABORER SHAFT SINKING Unavailable Radha Lopez [facility] Unavailable [phone] Luis A Escobedo MD Unavailable [phone] Geri Loza PA-C Unavailable [phone] Nehemiah Pattersonbirdie [employer] SCHO[employer] COUNSELLOR Unavailable Encounter Details Date Type Department Care Team (Late st Contact Info) Description 10/18/2020 Documentation Only INTERFACED REPORT Unknown, Provider Social History Tobacco Use Types Packs/Day Years Used Date Smoking Tobacco: Never Smokeless Tobacco: Never Alcohol Use Standard Drinks/Week Comments Yes 0 (1 standard drink = 0.6 oz pur e alcohol) socially Comments No Sex and Gender Information Value Date Recorded Sex Assigned at Not on file Legal 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 LINOLEUM TILE LAYER Gender Identity Not on file Sexual Orientation [...] documented as of this encounter Care Teams Identity Access Management Architect Relationship Specialty Start Date End Date Ernestina Martini PCP - General Family Practice 10/12/19 08/18/22 [facility], [place] [address] [place] [address] PCP - General 08/19/22 10/14/22 [place] [address] [place] [address] PCP - General 10/15/22 Parth Ellis MD [address] [place] [address] Assigned Heart and Vascular Provider 01/13/20 12/13/21 Tati Ayala MD [address] [address] [place], [place] 6625[address] Assigned Endocrinology Provider 01/13/20 12/29/20 Khris Butt MD [address] [facility] [address] [place] [address] Assigned Heart and Vascular Provider 12/14/21 02/14/22 Roderick Morelos MD [address] [place], [place] 737815 Cardiovascular Disease 02/03/22 Roderick Morelos MD [address] [place] [address] Assigned Heart and Vascular Provider 02/15/22 07/18/22 Magno Wood MD 420 [facility] 396 [place], [place] 356985 Otolaryngology 02/21/22 Sophie Ocasio AuD 9[address] [place], [place] 082685 [place] Audiology 02/21/22 Parth Ellis MD [address] [place] 244895 Assigned Heart and Vascular Provider 07/19/22 07/25/22 Roderick Morelos MD [address] [place] [address] Assigned Heart and Vascular Provider 07/26/22 08/08/22 Henny Rosales APRN SCHOOL COUNSELLOR [address] [place] [address] Assigned Heart and Vascular Provider 08/09/22 02/12/[address] [place], [place] 994815 Registered Dietitian Dietitian, Registered 09/02/22 Christiane Rodríguez MD 420 [facility] 396 [place], [place] 150185 Otolaryngology 11/12/22 Luis A Escobedo MD 420 [facility] 195 [place], [place] 354235 Assigned Surgical Provider 11/01/22 11/28/22 Chely Fernandez PA-C 909 [place], [place] 462035 Assigned Surgical Provider 11/29/22 02/06/23 Jing Cadena UNIVERSAL BANKER LABORER SHAFT SINKING 420 [facility] 450 [place] [address] Clinical Nurse Specialist Anesthesiology 01/15/23 Radha Lopez, [facility] [address] [place] [address] Pharmacist Pharmacist 01/16/23 Luis A Escobedo MD [address] [address] 195 [place], [place] 821395 Assigned Surgical Provider 02/07/23 04/15/23 Geri Loza PA-C [address] [place] [address] 165705 Assigned Surgical Provider 04/16/23 Raina Patterson APRN SCHOOL COUNSELLOR [address] [place] 317705 Nurse Practitioner Cardiovascular Disease 05/11/23 documented as of this encounter
--- OUTSIDE RECORDS SUMMARY | 2024-02-16 09:23 | XMS_ITS | Encounter Summary ---
Author Organization [facility] Address [address] [place] [address]21 Care Team Providers Care Cpr Instructor Name Role Phone [place] [facility] Primary Care Provider Unavailable Khris Butt MD Unavailable [phone] MorelosRoderick nunes MD Unavailable [phone] Roderick Morelos MD Unavailable [phone] Magno Wood MD Unavailable [phone] Sophie Ocasio Unavailable [phone] Parth Ellis MD Unavailable +[phone] MorelosRoderick nunes MD Unavailable [phone] Henny Rosales APRN MENTAL HEALTH ORDERLY Unavailable [phone] [employer] Jovanna Brockwell Primary Care Pr ovider Sharee Oliva RD Unavailable [phone] Kaykay Duarte NP Primary Care Provider [phone] Christiane Rodríguez MD Unavailable +[phone] Luis A Escobedo MD Unavailable +[phone] Chely Fernandez PA-C Unavailable [phone] Jing Cadena Susie ENGRAVER JEWELRY LANDMAN Unavailable Radha Lopez Estuardo [facility] Unavailable [phone] Luis A Escobedo MD Unavailable [phone] SevenGeri klein PA-C Unavailable [phone] Raina Patterson ENGRAVER JEWELRY MENTAL HEALTH ORDERLY Unavailable [phone] Encounter Details Date Type Department Care Team (Late st Contact Info) Description 02/11/2022 MyC Medical Advice [facility] [place] [address] [facility] [address] [place] [address] Rowena Stock[place] Social History Tobacco Use Types Packs/Day Years Used Date Smoking Tobacco: Never Smokeless Tobacco: Never Alcohol Use Standard Drinks/Week Comments Yes 0 (1 standard drink = 0.6 oz pur e alcohol) socially Comments No Sex and Gender Information Value Date Recorded Sex Assigned at Not on file Legal 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 BAG PATCHER Gender Identity Not on file Sexual Orientation Not on file COVID-19 Exposure Response Date Recorded In the last 10 days, have yo u been in contact with someone who was confirmed or suspected to have Coronavirus/COVID-19? No / Unsure 02/10/2022 4:12 PM BAG PATCHER documented as of this encounter Plan of Treatment Not on file documented as of this encounter Visit Diagnoses Not on filedocumented in this encounter Care Teams Cpr Instructor Relationship Specialty Start Date End Date Ernestina Martini PCP - General Family Practice 10/12/19 [facility] [address] [place], [place] 673317 PCP - General 08/19/22 10/14/22 Kaykay Duarte HALF SOLE FITTER [address] [place] [id number] PCP - General 10/15/22 Khris Butt MD 640 [facility] [address] [place] [address] Assigned Heart and Vascular Provider 12/14/21 02/14/22 Roderick Morelos MD [address] [place] [address] Cardiovascular Disease 02/03/22 Roderick Morelos MD [address] [place] [address] Assigned Heart and Vascular Provider 02/15/22 07/18/22 Magno Wood MD [address] [place] [address] Otolaryngology 02/21/22 Sophie Ocasio AuD [address] [place] [address] 495475 Airport Operations Coordinator Audiology 02/21/22 Parth Ellis MD [address] [place] [place] [address] Assigned Heart and Vascular Provider 07/19/22 07/25/22 Roderick Morelos MD [address] [address] Assigned Heart and Vascular Provider 07/26/22 08/08/22 Henny Rosales APRN MENTAL HEALTH ORDERLY [address] [place] [address] Assigned Heart and Vascular Provider 08/09/22 02/12/[address] [place], [place] 119415 Registered Dietitian Dietitian, Registered 09/02/22 Christiane Rodríguez MD 420 [facility] 396 [place], [place] 246025 Otolaryngology 11/12/22 Luis A Escobedo MD [address] [place] [address] 195 [place], [place] 726555 Assigned Surgical Provider 11/01/22 11/28/22 Chely Fernandez PA-C [address] [place] [address] 798735 Assigned Surgical Provider 11/29/22 02/06/23 Jing Cadena APRN LANDMAN [address] [place] [address] 450 [place], [place] 138625 Clinical Nurse Specialist Anesthesiology 01/15/23 Radha Lopez, [facility] [address] [place] [address] 198345 Pharmacist Pharmacist 01/16/23 Luis A Escobedo MD [address] [place] [address] Assigned Surgical Provider 02/07/23 04/15/23 Geri Loza PA-C [address] [place] [address]686 Assigned Surgical Provider 04/16/23 Raina Patterson APRN MENTAL HEALTH ORDERLY [address] [place] [address] Nurse Practitioner Cardiovascular Disease 05/11/23 documented as of this encounter
--- OUTSIDE RECORDS SUMMARY | 2024-02-16 09:23 | XMS_ITS | Encounter Summary ---
Author Organization [facility] Address [address] [place] [address] Care Team Providers Care Key Holder Name Role Phone [facility] Primary Care Provider Unavailable MorelosRoderick nunes MD Unavailable [phone] Roderick Morelos MD Unavailable [phone] Magno Wood MD Unavailable [phone] Sophie Ocasio Unavailable [phone] Parth Ellis MD Unavailable Roderick Morelos MD Unavailable [phone] Henny Rosales APRN CLINICAL DOCUMENTATION DEVELOPER Unavailable [phone] [facility] Primary Care Pr ovider Sharee Oliva RD Unavailable [phone] Kaykay Duarte NP Primary Care Provider Christiane Rodríguez MD Unavailable Luis A Escobedo MD Unavailable [phone] Chely Fernandez PA-C Unavailable [phone] Jing Cadena APRN SCHOOL PSYCHOLOGIST ASSISTANT Unavailable Radha Lopez [facility] Unavailable [phone] Luis A Escobedo MD Unavailable Geri LozaC Unavailable Raina Patterson APRN CLINICAL DOCUMENTATION DEVELOPER Unavailable [phone] Encounter Details Date Type Department Care Team (Late st Contact Info) Description 04/01/2022 [facility] [address] [place] [address] [facility] Social History Tobacco Use Types Packs/Day Years Used Date Smoking Tobacco: Never Smokeless Tobacco: Never Alcohol Use Standard Drinks/Week Comments Yes 0 (1 standard drink = 0.6 oz pur e alcohol) socially Comments No Sex and Gender Information Value Date Recorded Sex Assigned at Not on file Legal 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 SURVEYOR MINE Gender Identity Not on file Sexual Orientation Not on file documented as of this encounter Plan of Treatment Not on file documented as of this encounter Visit Diagnoses Not on filedocumented in this encounter Care Teams Key Holder Relationship Specialty Start Date End Date Ernestina Martini PCP - General Family Practice 10/12/19 08/18/22 [facility] [address] [place] [address] PCP - General 08/19/22 10/14/22 Kaykay Duarte NP [address] [place] [address] [place] [address] PCP - General 10/15/22 Roderick Morelos MD [address] [place] 505855 Cardiovascular Disease 02/03/22 Roderick Morelos MD [address] [place] [address] Assigned Heart and Vascular Provider 02/15/22 07/18/22 Magno Wood MD [address] [place] [address] Otolaryngology 02/21/22 Sophie Ocasio AuD [address] [place] [address] [id number] Cruise Agent Audiology 02/21/22 Parth Ellis MD [address] [place] [address] Assigned Heart and Vascular Provider 07/19/22 07/25/22 Roderick Morelos MD [address] [place] [address] Assigned Heart and Vascular Provider 07/26/22 08/08/22 Henny Rosales APRN CLINICAL DOCUMENTATION DEVELOPER [address] [place] [id number] Assigned Heart and Vascular Provider 08/09/22 02/12/24 Sharee Oliva, ÁNGEL [address] [place] [address] Registered Dietitian Dietitian, Registered 09/02/22 Christiane Rodríguez MD [address] [place] [address] 375785 Otolaryngology 11/12/22 Luis A Escobedo MD 420 [facility] 195 [place] [address] Assigned Surgical Provider 11/01/22 11/28/22 Chely Fernandez PA-C 909 [place] [address] Assigned Surgical Provider 11/29/22 02/06/23 Jing Cadena APRN SCHOOL PSYCHOLOGIST ASSISTANT [address] 083965 Clinical Nurse Specialist Anesthesiology 01/15/23 Radha Lopez, [facility] 909 [place], [place] 933955 Pharmacist Pharmacist 01/16/23 Luis A Escobedo MD [address] [address] Assigned Surgical Provider 02/07/23 04/15/23 Geri Loza PA-C 909 [place] [address] Assigned Surgical Provider 04/16/23 Raina Patterson, GINA CLINICAL DOCUMENTATION DEVELOPER [address] [place] [address] [place] 763485 Nurse Practitioner Cardiovascular Disease 05/11/23 documented as of this encounter
--- OUTSIDE RECORDS SUMMARY | 2024-02-16 09:23 | XMS_ITS | Encounter Summary ---
Author Organization [facility] Address [address] [place] [address]68 Care Team Providers Care Antitank Assault Gunner Name Role Phone Barrington Agudelo PA-C Primary Care Provider Magno Wood MD Unavailable [phone] [facility] Primary Care Provider Unavailable Parth Ellis MD Unavailable [phone] Tati Ayala MD Unavailable [phone] Khris Butt MD Unavailable [phone] MorelosRoderick nunes MD Unavailable [phone] Roderick Morelos MD Unavailable [phone] Magno Wood MD Unavailable [phone] Sophie Ocasio Unavailable [phone] Parth Ellis MD Unavailable [phone] Roderick Morelos MD Unavailable [phone] Henny Rosales APRN NEMATOLOGY TEACHER Unavailable [phone] [facility], [facility] Primary Care Pr ovider Sharee Oliva RD Unavailable [phone] Kaykay Duarte DEPUTY PROSECUTING ATTORNEY Primary Care Provider Christiane Rodríguez MD Unavailable [phone] Luis A Escobedo MD Unavailable + [phone] Chely Fernandez PA-C Unavailable [phone] CadenaJing APRN [facility] Unavailable + [phone] Jessica Radhajessica Marte [facility] Unavailable [phone] Luis A Escobedo MD Unavailable + [phone] Geri Loza PA-C Unavailable [phone] Raina Patterson APRN [facility] Unavailable [phone] Encounter Details Date Type Department Care Team (Late st Contact Info) Description 05/07/2011 Office Visit-[facility] 6[address] [facility] [address] [place] [address] Reji Li MD 6405 [facility] [address] [place] [address] Social History Tobacco Use Types Packs/Day Years Used Date Smoking Tobacco: Never Assessed Comments Unknown Sex and Gender Information Value Date Recorded Sex Assigned at Not on file Legal 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 METAL BENCH PATTERNMAKER Gender Identity Not on file Sexual Orientation Not on file documented as of this encounter Progress Notes * Reji Li MD - 08/19/2011 1:43 PM CDT Progress Note Created by: Reji Li M.D. DATE: 05/07/2011 JIMBO OWENS DATE OF : 1970 AGE: [age] years old Referring Physician: BARRINGTON LARA Referring Clinic: [facility] CURRENT DIAGNOSES 1. - Hypercholesterolemia, 272.0 [...] was 287. ALT was 17. From her kaiawhina, her electrolytes in October werenormal. Creatinine was [...] COVID-19 03/19/2020 03/19/2020 03/19/2020 6:22 PM METAL BENCH PATTERNMAKER COVID-19 03/19/2020 03/19/2020 04/09/2020 11:3 9 PM METAL BENCH PATTERNMAKER Rule Out COVID-19 06/19/2021 06/19/2021 06/19/2021 1:37 AM CDT Rule Out COVID-19 10/29/2021 10/29/2021 10/29/2021 1:07 AM CDT documented as of this encounter Care Teams Antitank Assault Gunner Relationship Specialty Start Date End Date Barrington Agudelo PA-C [facility] [address] [address] PCP - General 05/04/12 10/11/19 Sheila Martiniville [address] [address] PCP - General Family Practice 10/12/19 08/18/22 [facility] Jovanna Twilight [address] [place], [place] 932467 PCP - General 08/19/22 10/14/22 Kaykay Duarte, DEPUTY PROSECUTING ATTORNEY [address] [place] [address] PCP - General 10/15/22 Magno Wood MD [address] [address] Otolaryngology 05/29/15 08/02/17 Parth Ellis MD [address] [place] [address] Assigned Heart and Vascular Provider 01/13/20 12/13/21 Tati Ayala MD [address] [place] [address] [place], [place] 865930 Assigned Endocrinology Provider 01/13/20 12/29/20 Khris Butt MD [address] [place] [address] [place] 734955 Assigned Heart and Vascular Provider 12/14/21 02/14/22 Roderick Morelos MD [address] [place] 603975 MD Cardiovascular Disease 02/03/22 Roderick Morelos MD [address] [place] 242295 Assigned Heart and Vascular Provider 02/15/22 07/18/22 Magno Wood MD [address] [place] [address] 260305 Otolaryngology 02/21/22 Sophie Ocasio AuD 909 [place], [place] 670155 Nurse Practical Audiology 02/21/22 Parth Ellis MD [address] [place] 928065 Assigned Heart and Vascular Provider 07/19/22 07/25/22 Roderick Morelos MD [address] [place] 553975 Assigned Heart and Vascular Provider 07/26/22 08/08/22 Henny Rosales, HADOOP ADMIN NEMATOLOGY TEACHER [address] [place] [address] [place] [address] Assigned Heart and Vascular Provider 08/09/22 02/12/[address] [place] [address] 184435 Registered Dietitian Dietitian, Registered 09/02/22 Christiane Rodríguez MD [address] [place] [address] 396 [place], [place] 946855 Otolaryngology 11/12/22 Luis A Escobedo MD [address] [place] [address] 095925 Assigned Surgical Provider 11/01/22 11/28/22 Chely Fernandez PA-C [address] [place] [address] 681085 Assigned Surgical Provider 11/29/22 02/06/23 Jing Cadena, HADOOP ADMIN FARMWORKER [employer] [address] [place] [address] 450 [place], [place] 563295 Clinical Nurse Specialist Anesthesiology 01/15/23 Radha Lopez, [facility] [address] [place] [address] 388345 Pharmacist Pharmacist 01/16/23 Luis A Escobedo MD [address] [place] [address] 195 [place], [place] 907955 Assigned Surgical Provider 02/07/23 04/15/23 Geri Loza PA-C 9 [place] [address] Assigned Surgical Provider 04/16/23 Raina Patterson APRN NEMATOLOGY TEACHER [address] [facility] [address] [place] [address] Nurse Practitioner Cardiovascular Disease 05/11/23 documented as of this encounter
--- OUTSIDE RECORDS SUMMARY | 2024-02-16 09:23 | XMS_ITS | Encounter Summary ---
Author Organization [facility] Address [address] [place] [address] Care Team Providers Care Box Puller Name Role Phone Edda Agudelo PA-C Primary Care Provider Magno Wood MD Unavailable [phone] [facility] Primary Care Provider Unavailable Parth Ellis MD Unavailable [phone] Tati Ayala MD Unavailable [phone] Khris Butt MD Unavailable [phone] MorelosRoderick nunes MD Unavailable [phone] Roderick Morelos MD Unavailable [phone] Magno Wood MD Unavailable [phone] Sophie Ocasio Unavailable +[phone] Parth Ellis MD Unavailable [phone] Roderick Morelos MD Unavailable [phone] Henny Rosales APRN CONTINUOUS MINING MACHINE COAL MINER Unavailable [phone] [facility], [facility] Primary Care Pr ovider Sharee Oliva RD Unavailable [phone] Kaykay Duarte NP Primary Care Provider Christiane Rodríguez MD Unavailable [phone] Luis A Escobedo MD Unavailable + [phone] Chely Fernandez PA-C Unavailable [phone] CadenaJing [facility] Unavailable + [phone] Jessica Radhajessica Marte [facility] Unavailable [phone] Luis A Escobedo MD Unavailable + [phone] Geri Loza PA-C Unavailable +[phone] UzielkeriRaina APRN CONTINUOUS MINING MACHINE COAL MINER Unavailable [phone] Encounter Details Date Type Department Care Team (Late st Contact Info) Description 03/31/2006 Office Visit-[facility] 6405 [facility] [address] [place] [address] Imani Ott, GINA CONTINUOUS MINING MACHINE COAL MINER 6404 [facility] [address] [place] 230445 Social History Tobacco Use Types Packs/Day Years Used Date Smoking Tobacco: Never Assessed Comments Unknown Sex and Gender Information Value Date Recorded Sex Assigned at Not on file Legal 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 PROBATE PARALEGAL Gender Identity Not on file Sexual Orientation Not on file documented as of this encounter Progress Notes * Imani Ott NP - 04/02/2006 12:05 PM CST Progress Note Created by: Imani Ott N.P. DATE: 03/31/2006 JIMBO OWENS DATE OF : 1970 AGE: [age] years old Referring Physician: BOY WATSON Referring Clinic: [facility] CURRENT DIAGNOSES 1. - Hypercholesterolemia, 272.0 2. [...] know, she is a patient of Dr. Li'cecil, with a history of presumptive PVCs. She [...] Half-Brother - PR; Sister 1 - CAD; <FONT COLOR=#[id number]><FONT POINT=10>CARDIAC RISK FACTORS Tobacco Abuse: negative; Family [...] participate in this patient's care. Imani Ott NIna. documented in this encounter Plan of Treatment Not on file documented as of this encounter Visit Diagnoses Not on filedocumented in this encounter Additional Health Concerns Infection Onset Date Last Indicated Resolved Time Rule Out COVID-19 03/19/2020 03/19/2020 03/19/2020 6:22 PM PROBATE PARALEGAL COVID-19 03/19/2020 03/19/2020 04/09/2020 11:3 9 PM PROBATE PARALEGAL Rule Out COVID-19 06/19/2021 06/19/2021 06/19/2021 1:37 AM CDT Rule Out COVID-19 10/29/2021 10/29/2021 10/29/2021 1:07 AM CDT documented as of this encounter Care Teams Box Puller Relationship Specialty Start Date End Date Edda Agudelo PA-C [facility] [address] [place] [address] PCP - General 05/04/12 10/11/19 Ernestina Martini [address] [place] [place] [address] [facility] 396 [place] [address] PCP - General Family Practice 10/12/19 08/18/22 [facility] [address] [place] [address] PCP - General 08/19/22 10/14/22 Kaykay Duarte, STRIPING MACHINE OPERATOR [address] [place] [address] PCP - General 10/15/22 Magno Wood MD [address] [address] Otolaryngology 05/29/15 08/02/17 Parth Ellis MD [address] [place] [address] Assigned Heart and Vascular Provider 01/13/20 12/13/21 Tati Ayala MD [address] [place] [address] Assigned Endocrinology Provider 01/13/20 12/29/20 Khris Butt MD [address] [place] [address] [place] [address] Assigned Heart and Vascular Provider 12/14/21 02/14/22 Roderick Morelos MD [address] [place] [address] Cardiovascular Disease 02/03/22 Roderick Morelos MD [address] [place] [address] Assigned Heart and Vascular Provider 02/15/22 07/18/22 Magno Wood MD 420 [facility] 396 [place], [place] 303755 Otolaryngology 02/21/22 Sophie Ocasio AuD [address] [place], [place] 667915 Street Light Repairer Helper Audiology 02/21/22 Parth Ellis MD [address] [place] [address] Assigned Heart and Vascular Provider 07/19/22 07/25/22 Roderick Morelos MD [address] [place] [address] Assigned Heart and Vascular Provider 07/26/22 08/08/22 Henny Rosales APRN CONTINUOUS MINING MACHINE COAL MINER [address] [place] [address] Assigned Heart and Vascular Provider 08/09/22 02/12/[address] [place] [address] 005635 Registered Dietitian Dietitian, Registered 09/02/22 Christiane Rodríguez MD [address] [place] [address] 396 [place], [place] 292935 Otolaryngology 11/12/22 Luis A Escobedo MD [address] [place] [address] 107875 Assigned Surgical Provider 11/01/22 11/28/22 Chely Fernandez PA-C [address] [place] [address] 673555 Assigned Surgical Provider 11/29/22 02/06/23 Jing Cadena, [facility]INS[facility] FORMER PRESCRIPTION EYEGLASS MAKER [address] [place] [address] 450 [place], [place] 371665 Clinical Nurse Specialist Anesthesiology 01/15/23 Radha Lopez [facility] [address] [place] [address] 536855 Pharmacist Pharmacist 01/16/23 Luis A Escobedo MD [address] [place] [address] 223755 Assigned Surgical Provider 02/07/23 04/15/23 Geri Loza PA-C [address] [place] [address] 783785 Assigned Surgical Provider 04/16/23 Raina Patterson APRN [facility] [address] [facility] [address] [place] [address] Nurse Practitioner Cardiovascular Disease 05/11/23 documented as of this encounter
--- OUTSIDE RECORDS SUMMARY | 2024-02-16 09:23 | XMS_ITS | Encounter Summary ---
Author Organization [facility] Address [address] [place] [address] 13475 Care Team Providers Care Senior Revenue Accountant Name Role Phone Edda Agudelo PA-C Primary Care Provider Magno Wood MD Unavailable [phone] [facility] Primary Care Provider Unavailable Parth Ellis MD Unavailable [phone] Tati Ayala MD Unavailable [phone] Khris Butt MD Unavailable [phone] MorelosRoderick nunes MD Unavailable [phone] Roderick Morelos MD Unavailable [phone] Magno Wood MD Unavailable [phone] Sophie Ocasio Unavailable +[phone] Parth Ellis MD Unavailable [phone] Roderick Morelos MD Unavailable Henny Rosales APRN GAMING MANAGER Unavailable [phone] [facility], [facility] Primary Care Pr ovider Sharee Oliva RD Unavailable [phone] Kaykay Duarte WATER PLANT PUMP OPERATOR SUPERVISOR Primary Care Provider Christiane Rodríguez MD Unavailable [phone] Luis A Escobedo MD Unavailable + [phone] Chely Fernandez PA-C Unavailable [phone] CadenaJing APRN SIMPLEX OPERATOR Unavailable + [phone] Jessica Radhajessica Marte [facility] Unavailable [phone] Luis A Escobedo MD Unavailable + [phone] Geri Loza PA-C Unavailable +[phone] Raina Patterson APRN GAMING MANAGER Unavailable [phone] Encounter Details Date Type Department Care Team (Late st Contact Info) Description 04/20/2009 Office Visit-[facility] Heart [address] [phone] Lauri Canada APRN CNP NO INFO AVAILABLE 01/09/2022 Social History Tobacco Use Types Packs/Day Years Used Date Smoking Tobacco: Never Assessed Comments Unknown Sex and Gender Information Value Date Recorded Sex Assigned at Not on file Legal 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 TREATER HELPER Gender Identity Not on file Sexual Orientation Not on file documented as of this encounter Progress Notes * Lauri Canada - 04/28/2009 12:09 PM CST Progress Note Created by: Lauri Canada, N.P. DATE: 04/20/2009 JIMBO OWENS DATE OF : 1970 AGE: [age] years old Referring Physician: LUIS A WORRELL Referring Clinic: [facility] CURRENT DIAGNOSES 1. - Hypercholesterolemia, 272.0 [...] Half-Brother - [place]; Sister 1 - CAD; CARDIAC RISK FACTORS [...] 6 weeks 2. Treadmill Nuclear Study 6 weeks,MD able to convert to pharm stress if pt unable to exercise 3. Lipid profile/ALT 6 weeks Lauri Canada, N.P. documented in this encounter Plan of Treatment Not on file documented as of this encounter Visit Diagnoses Not on filedocumented in this encounter Additional Health Concerns Infection Onset Date Last Indicated Resolved Time Rule Out COVID-19 03/19/2020 03/19/2020 03/19/2020 6:22 PM TREATER HELPER COVID-19 03/19/2020 03/19/2020 04/09/2020 11:3 9 PM TREATER HELPER Rule Out COVID-19 06/19/2021 06/19/2021 06/19/2021 1:37 AM CDT Rule Out COVID-19 10/29/2021 10/29/2021 10/29/2021 1:07 AM CDT documented as of this encounter Care Teams Senior Revenue Accountant Relationship Specialty Start Date End Date Edda Agudelo PA-C [facility] [address] [address] PCP - General 05/04/12 10/11/19 Ernestina Martini [address] [address] PCP - General Family Practice 10/12/19 08/18/22 [facility] [address] [place] [address] [place] [address] PCP - General 08/19/22 10/14/22 Kaykay Duarte WATER PLANT PUMP OPERATOR SUPERVISOR [address] [place] [address] PCP - General 10/15/22 Magno Wood MD [address] 544975 Otolaryngology 05/29/15 08/02/17 Parth Ellis MD [address] 674375 Assigned Heart and Vascular Provider 01/13/20 12/13/21 Tati Ayala MD [address] [place] [address] Assigned Endocrinology Provider 01/13/20 12/29/20 Khris Butt MD [address] [place] [address] Assigned Heart and Vascular Provider 12/14/21 02/14/22 Rodeirck Morelos MD [address] [place] [address] MD Cardiovascular Disease 02/03/22 Roderick Morelos MD [address] [place] [address] Assigned Heart and Vascular Provider 02/15/22 07/18/22 Magno Wood MD [address] [place] [address] 894585 Otolaryngology 02/21/22 Sophie Ocasio, Nick [address] [place] [address] 888245 Maintenance Supervisor Electrical Audiology 02/21/22 Parth Ellis MD [address] [place] [address] Assigned Heart and Vascular Provider 07/19/22 07/25/22 Roderick Morelos MD [address] [place] [address] Assigned Heart and Vascular Provider 07/26/22 08/08/22 Henny Rosales, TIER TRUCK DRIVER GAMING MANAGER [address] [place] [phone] Assigned Heart and Vascular Provider 08/09/22 02/12/[address] [place], [place] [address] Registered Dietitian Dietitian, Registered 09/02/22 Christiane Rodríguez MD 420 [facility] 396 [place], [place] 9[address] Otolaryngology 11/12/22 Luis A Escobedo MD 420 [facility] 195 [place], [place] [address]645 Assigned Surgical Provider 11/01/22 11/28/22 Chely Fernandez PA-C 9[address] [place], [place] 167745 Assigned Surgical Provider 11/29/22 02/06/23 Jing Cadena, TIER TRUCK DRIVER SIMPLEX OPERATOR 420 [facility] 450 [place], [place] 978835 Clinical Nurse Specialist Anesthesiology 01/15/23 Radha Lopez, [facility] 9[address] [place], [place] 139065 Pharmacist Pharmacist 01/16/23 Luis A Escobedo MD 420 [facility] 195 [place] [address] Assigned Surgical Provider 02/07/23 04/15/23 Geri Loza PA-C 909 [place] [address] Assigned Surgical Provider 04/16/23 Raina Patterson APRN GAMING MANAGER [address] [place] [address] Nurse Practitioner Cardiovascular Disease 05/11/23 documented as of this encounter
--- OUTSIDE RECORDS SUMMARY | 2024-02-16 09:23 | XMS_ITS | Encounter Summary ---
Author Organization [facility] Address [address] [place] [address] Care Team Providers Care Front Desk Representative Name Role Phone Edda Agudelo PA-C Primary Care Provider Magno Wood MD Unavailable [phone] [facility] Primary Care Provider Unavailable Parth Ellis MD Unavailable [phone] Tati Ayala MD Unavailable [phone] Khris Butt MD Unavailable [phone] MorelosRoderick nunes MD Unavailable [phone] Roderick Morelos MD Unavailable [phone] Magno Wood MD Unavailable [phone] Sophie Ocasio Unavailable +[phone] Parth Ellis MD Unavailable [phone] Roderick Morelos MD Unavailable [phone] Henny Rosales APRN MERIT SYSTEM DIRECTOR Unavailable [phone] [facility], [facility] Primary Care Pr ovider Sharee Oliva RD Unavailable [phone] Kaykay Duarte HOME APPRAISER Primary Care Provider [phone] Christiane Rodríguez MD Unavailable [phone] Luis A Escobedo MD Unavailable + [phone] Chely Fernandez PA-C Unavailable [phone] CadenaJing APRN LABORATORY TECHNOLOGY TEACHER Unavailable + [phone] Jessica Radhajessica Marte [facility] Unavailable [phone] Luis A Escobedo MD Unavailable + [phone] Geri Loza PA-C Unavailable +[phone] Raina Patterson APRN MERIT SYSTEM DIRECTOR Unavailable +[phone] Encounter Details Date Type Department Care Team (Late st Contact Info) Description 06/13/2009 Office Visit-[facility] Heart [address] [phone] Lauri Canada APRN CNP NO INFO AVAILABLE 01/09/2022 Social History Tobacco Use Types Packs/Day Years Used Date Smoking Tobacco: Never Assessed Comments Unknown Sex and Gender Information Value Date Recorded Sex Assigned at Not on file Legal 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 MEDICAL CHEMIST Gender Identity Not on file Sexual Orientation [...] well controlled. 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 On Crestor 20 mg a day (which [...] Mother - Age 34, cancer-breast; Half-Brother - [place]; Sister 1 - CAD; SOCIAL HISTORY Alcohol [...] Her lipids are improving on Crestor, but she is missing a dose every third day. I talked to her about increasing to 40 mg of Crestor daily in the hopes that she will target closer to an LDL of 100. Even if she misses doses, we have a strongerlikelihood of obtaining a goal at that level. [...] Reji Li MD 3 months-MUST BE ANDRE-NOT HOME APPRAISER 2. Lipid profile/ALT 3 months Lauri Canada, N.P. documented in this encounter Plan of Treatment Not on file documented as of this encounter Visit Diagnoses Not on filedocumented in this encounter Additional Health Concerns Infection Onset Date Last Indicated Resolved Time Rule Out COVID-19 03/19/2020 03/19/2020 03/19/2020 6:22 PM MEDICAL CHEMIST COVID-19 03/19/2020 03/19/2020 04/09/2020 11:3 9 PM MEDICAL CHEMIST Rule Out COVID-19 06/19/2021 06/19/2021 06/19/2021 1:37 AM CDT Rule Out COVID-19 10/29/2021 10/29/2021 10/29/2021 1:07 AM CDT documented as of this encounter Care Teams Front Desk Representative Relationship Specialty Start Date End Date Edda Agudelo PA-C [facility] [address] [place] [address] PCP - General 05/04/12 10/11/19 [place], Casanova [address] [address] PCP - General Family Practice 10/12/19 08/18/22 [facility] Jovanna Casanova [address] [place] [address] PCP - General 08/19/22 10/14/22 [place] [address] [place] [address] PCP - General 10/15/22 Magno Wood MD [address] [address] Otolaryngology 05/29/15 08/02/17 Parth Ellis MD [address] [place] [address] Assigned Heart and Vascular Provider 01/13/20 12/13/21 Tati Ayala MD [address] [place] [address] Assigned Endocrinology Provider 01/13/20 12/29/20 Khris Butt MD [address] [place] [address] Assigned Heart and Vascular Provider 12/14/21 02/14/22 Roderick Morelos MD [address] [place] [address] Cardiovascular Disease 02/03/22 Roderick Morelos MD [address] [place] [address]35 Assigned Heart and Vascular Provider 02/15/22 07/18/22 Magno Wood MD 420 [facility] 396 [place], [place] [address]25 Otolaryngology 02/21/22 Sophie Ocasio AuD 9[address] [place], [place] 211825 Airport Operations Duty Manager Audiology 02/21/22 Parth Ellis MD [address] [place] [address] Assigned Heart and Vascular Provider 07/19/22 07/25/22 Roderick Morelos MD [address] [place] [address] Assigned Heart and Vascular Provider 07/26/22 08/08/22 Henny Rosales, TOOL CHECKER MERIT SYSTEM DIRECTOR [address] [place] [address] Assigned Heart and Vascular Provider 08/09/22 02/12/[address] [place], [place] 55[address] Registered Dietitian Dietitian, Registered 09/02/22 Christiane Rodríguez MD 420 [facility] 396 [place], [place] 2250[address] Otolaryngology 11/12/22 Luis A Escobedo MD [address] [place] [address] 195 [place], [place] 0[address]05 Assigned Surgical Provider 11/01/22 11/28/22 Chely Fernandez PA-C [address] [place] [address] 027725 Assigned Surgical Provider 11/29/22 02/06/23 Jing Cadena, TOOL CHECKER LABORATORY TECHNOLOGY TEACHER 420 [facility] 450 [place], [place] 957275 Clinical Nurse Specialist Anesthesiology 01/15/23 Radha Lopez, [facility] 9 [place], [place] [address] Pharmacist Pharmacist 01/16/23 Luis A Escobedo MD 420 [facility] 195 [place], [place] [address] Assigned Surgical Provider 02/07/23 04/15/23 Geri Loza PA-C 9 [place] [address] Assigned Surgical Provider 04/16/23 Raina Patterson APRN MERIT SYSTEM DIRECTOR [address] [place] [address] Nurse Practitioner Cardiovascular Disease 05/11/23 documented as of this encounter
--- OUTSIDE RECORDS SUMMARY | 2024-02-16 09:23 | XMS_ITS | Encounter Summary ---
Author Organization [facility] Address [address] [place] [address] Care Team Providers Care Manager Of Manufacturing Name Role Phone Edda Agudelo PA-C Primary Care Provider Magno Wood MD Unavailable [phone] [facility] Primary Care Provider Unavailable Parth Ellis MD Unavailable [phone] Tati Ayala MD Unavailable [phone] Khris Butt MD Unavailable [phone] MorelosRoderick nunes MD Unavailable [phone] Roderick Morelos MD Unavailable Magno Wood MD Unavailable Sophie Ocasio Unavailable [phone] Parth Ellis MD Unavailable [phone] Roderick Morelos MD Unavailable [phone] Henny Rosales APRN MATTRESS INSPECTOR Unavailable [phone] [facility], [facility] Primary Care Pr ovider Sharee Oliva RD Unavailable [phone] Kaykay Duarte CHEESE SUPERVISOR Primary Care Provider Christiane Rodríguez MD Unavailable [phone] Luis A Escobedo MD Unavailable +[phone] Chely Fernandez PA-C Unavailable [phone] CadenaJing APRN [facility] Unavailable + [phone] Jessica Radhajessica Marte [facility] Unavailable [phone] Luis A Escobedo MD Unavailable +[phone] Geri Loza PA-C Unavailable [phone] Raina Patterson APRN [facility] Unavailable [phone] Encounter Details Date Type Department Care Team (Late st Contact Info) Description 12/16/2005 Office Visit-[facility] Heart [facility] 6405 [facility] [address] [place] [address] Reji Li MD 6[address] [facility] [address] [place] [address] Social History Tobacco Use Types Packs/Day Years Used Date Smoking Tobacco: Never Assessed Comments Unknown Sex and Gender Information Value Date Recorded Sex Assigned at Not on file Legal 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 INSOLE ROUNDER Gender Identity Not on file Sexual Orientation Not on file documented as of this encounter Progress Notes * Reji Li MD - 12/18/2005 3:31 PM CDT Progress Note Created by: Reji Li M.D. DATE: 12/16/2005 JIMBO OWENS DATE OF : 1970 AGE: [age] years old Referring Physician: BOY WATSON Referring Clinic: [facility] CURRENT DIAGNOSES 1. - Hypercholesterolemia, [...] Mother - Age 34, cancer-breast; Half-Brother - [place]; Sister 1 - CAD; SOCIAL HISTORY Alcohol [...] valve. She just had cholesterols done at [facility] yesterday. She will call us next [...] valve. She just had cholesterols done at [facility] yesterday. She will call us next week for the results to determine if weneed to increase her Vytorin. Total consult time: 25 minutes, greater than 50% counseling. Reji Li M.D./[facility]/[id number] cc:Luis A Vincent M.D. documented in this encounter Plan of Treatment Not on file documented as of this encounter Visit Diagnoses Not on filedocumented in this encounter Additional Health Concerns Infection Onset Date Last Indicated Resolved Time Rule Out COVID-19 03/19/2020 03/19/2020 03/19/2020 6:22 PM INSOLE ROUNDER COVID-19 03/19/2020 03/19/2020 04/09/2020 11:3 9 PM INSOLE ROUNDER Rule Out COVID-19 06/19/2021 06/19/2021 06/19/2021 1:37 AM CDT Rule Out COVID-19 10/29/2021 10/29/2021 10/29/2021 1:07 AM CDT documented as of this encounter Care Teams Manager Of Manufacturing Relationship Specialty Start Date End Date Edda Agudelo PA-C [facility] [address] [place] [address] PCP - General 05/04/12 10/11/19 Ernestina Martini 420 [facility] SE [facility] 396 [place] [address] PCP - General Family Practice 10/12/19 08/18/22 [facility] [address] [place] [address] [place] [address] PCP - General 08/19/22 10/14/22 Kaykay Duarte, CHEESE SUPERVISOR [address] [place] [address] PCP - General 10/15/22 Magno Wood MD [address] [place] [address] [address] Otolaryngology 05/29/15 08/02/17 Parth Ellis MD [address] [place] [address] Assigned Heart and Vascular Provider 01/13/20 12/13/21 Tati Ayala MD [address] [place] [address] Assigned Endocrinology Provider 01/13/20 12/29/20 Khris Butt MD [address] [place] [address] Assigned Heart and Vascular Provider 12/14/21 02/14/22 Roderick Morelos MD [address] [place] [address] Cardiovascular Disease 02/03/22 Roderick Morelos MD [address] [place] [address] Assigned Heart and Vascular Provider 02/15/22 07/18/22 Magno Wood MD [address] [place] [address] 396 [place] [address] Otolaryngology 02/21/22 Sophie Ocasio AuD [address] [place] [address] Textile Machine Operator Audiology 02/21/22 Parth Ellis MD [address] [place] [address] Assigned Heart and Vascular Provider 07/19/22 07/25/22 Roderick Morelos MD [address] [place] [address] Assigned Heart and Vascular Provider 07/26/22 08/08/22 Henny Rosales, CONCRETE VAULT MAKER MATTRESS INSPECTOR [address] [place] [address] Assigned Heart and Vascular Provider 08/09/22 02/12/[address] [place] [address] 335345 Registered Dietitian Dietitian, Registered 09/02/22 Christiane Rodríguez MD 420 [facility] 396 [place], [place] 7[address] Otolaryngology 11/12/22 Luis A Escobedo MD [address] [place] [address] 195 [place], [place] 273725 Assigned Surgical Provider 11/01/22 11/28/22 Chely Fernandez PA-C [address] [place] [address] 906735 Assigned Surgical Provider 11/29/22 02/06/23 Jing Cadena APRN FILM CUTTER [address] [place] [address] 450 [place], [place] [address] Clinical Nurse Specialist Anesthesiology 01/15/23 Radha Lopez [facility] [address] [place] [address] 322555 Pharmacist Pharmacist 01/16/23 Luis A Escobedo MD [address] [place] [address] 195 [place] [address] Assigned Surgical Provider 02/07/23 04/15/23 Geri Loza PA-C [address] [place] [address] Assigned Surgical Provider 04/16/23 Raina Patterson APRN MATTRESS INSPECTOR [address] [place] [address] Nurse Practitioner Cardiovascular Disease 05/11/23 documented as of this encounter
--- OUTSIDE RECORDS SUMMARY | 2024-02-16 09:23 | XMS_ITS | Encounter Summary ---
Author Organization [place] Address [address] [place] [address] Care Team Providers Care Human Resources Compensation Analyst Name Role Phone [facility] Primary Care Provider Unavailable MorelosRoderick nunes MD Unavailable [phone] Roderick Morelos MD Unavailable Magno Wood MD Unavailable [phone] Sophie Ocasio Unavailable +[phone] Parth Ellis MD Unavailable Roderick Morelos MD Unavailable [phone] Henny Rosales APRN BIOTECHNOLOGIST Unavailable [phone] [facility] Primary Care Pr ovider Sharee Oliva RD Unavailable Kaykay Duarte NP Primary Care Provider Christiane Rodríguez MD Unavailable Luis A Escobedo MD Unavailable [phone] Chely Fernandez PA-C Unavailable [phone] Jing Cadena APRN PUBLIC HEALTH PROGRAM MANAGER Unavailable [phone] Radha Lopez [facility] Unavailable Luis A Escobedo MD Unavailable Geri LozaC Unavailable Raina Patterson APRN BIOTECHNOLOGIST Unavailable [phone] Encounter Details Date Type Department Care Team (Late st Contact Info) Description 05/14/2022 MyC Medical Advice [facility] [address] [place] [address] Jessi Mantilla LPN Social History Tobacco Use Types Packs/Day Years Used Date Smoking Tobacco: Never Smokeless Tobacco: Never Alcohol Use Standard Drinks/Week Comments Yes 0 (1 standard drink = 0.6 oz pur e alcohol) socially Comments No Sex and Gender Information Value Date Recorded Sex Assigned at Not on file Legal 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 ELECTRICAL ENGINEERING DRAFTSPERSON Gender Identity Not on file Sexual Orientation Not on file documented as of this encounter Plan of Treatment Not on file documented as of this encounter Visit Diagnoses Not on filedocumented in this encounter Care Teams Human Resources Compensation Analyst Relationship Specialty Start Date End Date Ernestina Martini PCP - General Family Practice 10/12/19 08/18/22 [facility] [place] [address] [place] [address] PCP - General 08/19/22 10/14/22 [place] [address] [place] [address] PCP - General 10/15/22 Roderick Morelos MD [address] [place] 866445 Cardiovascular Disease 02/03/22 Roderick Morelos MD [address] [place] [address] Assigned Heart and Vascular Provider 02/15/22 07/18/22 Magno Wood MD [address] [place] [address] Otolaryngology 02/21/22 Sophie Ocasio AuD 9 [place], [place] 321045 Cancer Program Director Audiology 02/21/22 Parth Ellis MD [address] [place] [address] Assigned Heart and Vascular Provider 07/19/22 07/25/22 Roderick Morelos MD [address] [place] [address] Assigned Heart and Vascular Provider 07/26/22 08/08/22 Henny Rosales APRN BIOTECHNOLOGIST [address] [place] [address] Assigned Heart and Vascular Provider 08/09/22 02/12/24 Sharee Oliva, ÁNGEL [address] [place] [address] Registered Dietitian Dietitian, Registered 09/02/22 Christiane Rodríguez MD [address] [place] [address] 583955 Otolaryngology 11/12/22 Luis A Escobedo MD [address] [address] Assigned Surgical Provider 11/01/22 11/28/22 Chely Fernandez PA-C [address] [place], [place] 86[address]85 Assigned Surgical Provider 11/29/22 02/06/23 Jing Cadena APRN PUBLIC HEALTH PROGRAM MANAGER [address] 724[address] Clinical Nurse Specialist Anesthesiology 01/15/23 Radha Lopez, [facility] [address] [place] [address] 765985 Pharmacist Pharmacist 01/16/23 Luis A Escobedo MD [address] [address] Assigned Surgical Provider 02/07/23 04/15/23 Geri Loza PA-C 909 [place] [address] Assigned Surgical Provider 04/16/23 Raina Patterson, GINA BIOTECHNOLOGIST [address] [place] [address] Nurse Practitioner Cardiovascular Disease 05/11/23 documented as of this encounter
--- OUTSIDE RECORDS SUMMARY | 2024-02-16 09:23 | XMS_ITS | Encounter Summary ---
Author Organization [place] Address [address] [place] [address] Care Team Providers Care Financial Recording Clerk Name Role Phone Edda Agudelo PA-C Primary Care Provider Magno Wood MD Unavailable [phone] [facility] Primary Care Provider Unavailable Parth Ellis MD Unavailable +[phone] Tati Ayala MD Unavailable +[phone] Khris Butt MD Unavailable +[phone] MorelosRoderick nunes MD Unavailable [phone] Roderick Morelos MD Unavailable +[phone] Magno Wood MD Unavailable [phone] Sophie Ocasio Unavailable +[phone] Parth Ellis MD Unavailable +[phone] Roderick Morelos MD Unavailable +[phone] Henny Rosales APRN [facility] Unavailable +[phone] [facility], [facility] Primary Care Pr ovider Sharee Oliva RD Unavailable [phone] Kaykay Duarte SUBSTATION TECHNICIAN Primary Care Provider [phone] Christiane Rodríguez MD Unavailable +[phone] Luis A Escobedo MD Unavailable +[phone] Chely Fernandez PA-C Unavailable +[phone] CadenaJing APRN [facility] Unavailable + [phone] Jessica Radhajessica Marte [facility] Unavailable [phone] Luis A Escobedo MD Unavailable + [phone] Geri Loza PA-C Unavailable +[phone] Raina Patterson APRN [facility] Unavailable +[phone] Encounter Details Date Type Department Care Team (Late st Contact Info) Description 02/10/2008 Office Visit-[facility] [address] [facility] [address] [place] [address] Reji Li MD 6405 [facility] [address] [place] [address] Social History Tobacco Use Types Packs/Day Years Used Date Smoking Tobacco: Never Assessed Comments Unknown Sex and Gender Information Value Date Recorded Sex Assigned at Not on file Legal 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 ACCOUNT ADJUSTER Gender Identity Not on file Sexual Orientation Not on file documented as of this encounter Progress Notes * Reji Li MD - 02/15/2008 2:38 PM CST Progress Note Created by: Reji Li M.D. DATE: 02/10/2008 JIMBO OWENS DATE OF : 1970 AGE: [age] years old Referring Physician: LUIS A WORRELL Referring Clinic: [facility] CURRENT DIAGNOSES 1. - Hypercholesterolemia, 272.0 2. [...] Out COVID-19 03/19/2020 03/19/2020 03/19/2020 6:22 PM ACCOUNT ADJUSTER COVID-19 03/19/2020 03/19/2020 04/09/2020 11:3 9 PM ACCOUNT ADJUSTER Rule Out COVID-19 06/19/2021 06/19/2021 06/19/2021 1:37 AM CDT Rule Out COVID-19 10/29/2021 10/29/2021 10/29/2021 1:07 AM CDT documented as of this encounter Care Teams Financial Recording Clerk Relationship Specialty Start Date End Date Edda Agudelo PA-C [facility] [address] [address] PCP - General 05/04/12 10/11/19 Ernestina Martini [address] [facility] [address] [place] [address] PCP - General Family Practice 10/12/19 08/18/22 Elvia Beck [address] [place] [address] PCP - General 08/19/22 10/14/22 Kaykay Duarte NP [address] [place] [address] [place], [place] [id number] PCP - General 10/15/22 Magon Wood MD [address] [facility] 396 [place] [address] Otolaryngology 05/29/15 08/02/17 Parth Ellis MD [address] [place] [address] Assigned Heart and Vascular Provider 01/13/20 12/13/21 Tati Ayala MD [address] [place] [address] 200 [place] [address] Assigned Endocrinology Provider 01/13/20 12/29/20 Khris uBtt MD [address] [facility] [address] [place] [address] Assigned Heart and Vascular Provider 12/14/21 02/14/22 Roderick Morelos MD [address] [place] [address] Cardiovascular Disease 02/03/22 Roderick Morelos MD [address] [place] [address] Assigned Heart and Vascular Provider 02/15/22 07/18/22 Magno Wood MD [address] [facility] [address] [place] [address] Otolaryngology 02/21/22 Sophie Ocasio AuD 909 [place] [address] Pipe Fitter Apprentice Audiology 02/21/22 Parth Ellis MD [address] [place] [address] Assigned Heart and Vascular Provider 07/19/22 07/25/22 Roderick Morelos MD [address] [place] [address] Assigned Heart and Vascular Provider 07/26/22 08/08/22 Henny Rosales APRN [facility] [address] [place] [id number] Assigned Heart and Vascular Provider 08/09/22 02/12/[address] [place] [address] 329335 Registered Dietitian Dietitian, Registered 09/02/22 Christiane Rodríguez MD [address] [place] [address] 396 [place], [place] 8[address] Otolaryngology 11/12/22 Luis A Escobedo MD [address] [place] [address] 195 [place], [place] 380955 Assigned Surgical Provider 11/01/22 11/28/22 Chely Fernandez PA-C [address] [place] [address] 186075 Assigned Surgical Provider 11/29/22 02/06/23 Jing Cadena APRN DOUBLING MACHINE OPERATOR [address] [facility] [address] [place], [place] [address] Clinical Nurse Specialist Anesthesiology 01/15/23 Radha Lopez, [facility] [address]09 [place], [place] [address] Pharmacist Pharmacist 01/16/23 Luis A Escobedo MD [address] [facility] [address] [place], [place] 9[address]555 Assigned Surgical Provider 02/07/23 04/15/23 Geri Loza PA-C 909 [place], [place] 089285 Assigned Surgical Provider 04/16/23 Raina Patterson APRN [facility] [address] [place] [address] Nurse Practitioner Cardiovascular Disease 05/11/23 documented as of this encounter
--- OUTSIDE RECORDS SUMMARY | 2024-02-16 09:23 | XMS_ITS | Encounter Summary ---
Author Organization [place] Address [address] [place] [address] Care Team Providers Care Fruit Trimmer Name Role Phone Edda Agudelo PA-C Primary Care Provider Magno Wood MD Unavailable [phone] [facility] Primary Care Provider Unavailable Parth Ellis MD Unavailable [phone] Tati Ayala MD Unavailable [phone] Khris Butt MD Unavailable +[phone] MorelosRoderick nunes MD Unavailable [phone] Roderick Morelos MD Unavailable [phone] Magno Wood MD Unavailable [phone] Sophie Ocasio Unavailable +[phone] Parth Ellis MD Unavailable +[phone] Roderick Morelos MD Unavailable [phone] Henny Rosales APRN FIRE PREVENTION FORESTER Unavailable +[phone] [facility], [facility] Primary Care Pr ovider Sharee Oliva RD Unavailable [phone] Kaykay Duarte MOBILE APPLICATION DEVELOPER Primary Care Provider Christiane Rodríguez MD Unavailable +[phone] Luis A Escobedo MD Unavailable + [phone] Chely Fernandez PA-C Unavailable +[phone] Cadena Jing Susie [facility]ES [facility] Unavailable + [phone] JessicaJamarcus geronimojessica Marte [facility] Unavailable [phone] Luis A Escobedo MD Unavailable + [phone] Geri Loza PA-C Unavailable +[phone] UzielkeriRaina APRN [facility] Unavailable [phone] Encounter Details Date Type Department Care Team (Late st Contact Info) Description 12/06/2004 Office Visit-[facility] [address] [address] Unknown, Doctor, Social History Tobacco Use Types Packs/Day Years Used Date Smoking Tobacco: Never Assessed Comments Unknown Sex and Gender Information Value Date Recorded Sex Assigned at Not on file Legal 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 MAIL RIDER Gender Identity Not on file Sexual Orientation Not on file documented as of this encounter Progress Notes * Unknown, MD Angelica - 12/11/2004 10:06 PM CDT Progress Note Created by: Lauri Canada N.P. DATE: 12/06/2004 JIMBO OWNES DATE OF : 1970 AGE: [age] years old Referring Physician: BOY WATSON Referring Clinic: [facility] CURRENT DIAGNOSES 1. - Hypercholesterolemia, [...] and labs HISTORY OF PRESENT ILLNESS </B><FONT FACE=Baggageman New> Jimbo Owens is a pleasant, 34-year-old [...] cholesterol 194, ratio 5.4, ALT 14. Her Chacon 10-year risk score is 1%. According to that, her LDL cholesterol goal should be less than 160, although given her risk factors and family history, she may certainly benefit intermodal customer service from an LDL cholesterol between 100-120. Jimbo, [...] mcg/inh and Zocor 20 mg IMPRESSIONS/PLAN </B><FONT FACE=Baggageman New>1) Family history of coronary artery disease [...] Out COVID-19 03/19/2020 03/19/2020 03/19/2020 6:22 PM MAIL RIDER COVID-19 03/19/2020 03/19/2020 04/09/2020 11:3 9 PM MAIL RIDER Rule Out COVID-19 06/19/2021 06/19/2021 06/19/2021 1:37 AM CDT Rule Out COVID-19 10/29/2021 10/29/2021 10/29/2021 1:07 AM CDT documented as of this encounter Care Teams Fruit Trimmer Relationship Specialty Start Date End Date Edda Agudelo PA-C [facility] [address] [address] PCP - General 05/04/12 10/11/19 Elvia Nugent [place] [address] [address] PCP - General Family Practice 10/12/19 08/18/22 [facility] Jovanna [place] [address] [place], [place] [address]177 PCP - General 08/19/22 10/14/22 [place] [address] [place] [address] PCP - General 10/15/22 Magno Wood MD 420 [facility] 396 [place] [address] Otolaryngology 05/29/15 08/02/17 Parth Ellis MD [address] [place] [address] Assigned Heart and Vascular Provider 01/13/20 12/13/21 Tati Ayala MD [address] [place] 200 [place], [place] [address] Assigned Endocrinology Provider 01/13/20 12/29/20 Khris Butt MD [address] [facility] [address] [place] [address] Assigned Heart and Vascular Provider 12/14/21 02/14/22 Roderick Morelos MD [address] [place] [address] Cardiovascular Disease 02/03/22 Roderick Morelos MD [address] [place] [address] Assigned Heart and Vascular Provider 02/15/22 07/18/22 Magno Wood MD 420 [facility] 396 [place], [place] [address] Otolaryngology 02/21/22 Sophie Ocasio AuD 909 [place] [address] Curing Oven Tender Audiology 02/21/22 Parth Ellis MD [address] [place] [address]65 Assigned Heart and Vascular Provider 07/19/22 07/25/22 Roderick Morelos MD [address] [place] [address]645 Assigned Heart and Vascular Provider 07/26/22 08/08/22 Henny Rosales, TELEVISION NEWS PHOTOGRAPHER FIRE PREVENTION FORESTER [address] [place] [address] Assigned Heart and Vascular Provider 08/09/22 02/12/[address] 909 [place] [address] Registered Dietitian Dietitian, Registered 09/02/22 Christiane Rodríguez MD [address] [place] [address] 396 [place] [address] Otolaryngology 11/12/22 Luis A Escobedo MD 420 [facility] 195 [place] [address] Assigned Surgical Provider 11/01/22 11/28/22 Chely Fernandez PA-C 909 [place] [address] Assigned Surgical Provider 11/29/22 02/06/23 Jing Cadena, TELEVISION NEWS PHOTOGRAPHER STEEL WELDER 420 [facility] 450 [place] [address] Clinical Nurse Specialist Anesthesiology 01/15/23 Radha Lopez, [facility] [address] [place] [address] [phone] Pharmacist Pharmacist 01/16/23 Luis A Escobdeo MD [address] [place] [address] 195 [place], [place] [address] Assigned Surgical Provider 02/07/23 04/15/23 Geri Loza PA-C [address] [place] [address] 085245 Assigned Surgical Provider 04/16/23 Raina Patterson APRN FIRE PREVENTION FORESTER [address] [place] [address] Nurse Practitioner Cardiovascular Disease 05/11/23 documented as of this encounter
--- OUTSIDE RECORDS SUMMARY | 2024-02-16 09:23 | XMS_ITS | Encounter Summary ---
Author Organization [place] Address [address] [place] [address] Care Team Providers Care Echometer Engineer Name Role Phone Edda Agudelo PA-C Primary Care Provider Magno Wood MD Unavailable [phone] [facility] Primary Care Provider Unavailable Parth Ellis MD Unavailable [phone] Tati Ayala MD Unavailable +[phone] Khris Butt MD Unavailable +[phone] MorelosRoderick nunes MD Unavailable [phone] Roderick Morelos MD Unavailable [phone] Magno Wood MD Unavailable [phone] Sophie Ocasio Unavailable +[phone] Parth Ellis MD Unavailable +[phone] Roderick Morelos MD Unavailable [phone] Henny Rosales APRN STAMP ANALYST Unavailable +[phone] [facility], [facility] Primary Care Pr ovider Sharee Oliva RD Unavailable [phone] Kaykay Duarte [employer] Primary Care Provider Christiane Rodríguez MD Unavailable +[phone] LuisA Escobedo MD Unavailable + [phone] Chely Fernandez PA-C Unavailable +[phone] Cadena Jing Susie [facility] Unavailable + [phone] Jamarcus Lopezjessica Marte [facility] Unavailable +[phone] Luis A Escobedo MD Unavailable + [phone] Geri Loza PA-C Unavailable +[phone] Raina Patterson APRN [facility] Unavailable +[phone] Encounter Details Date Type Department Care Team (Late st Contact Info) Description 01/25/2004 Office Visit-[facility] Heart [address] [address] Unknown, Doctor, Social History Tobacco Use Types Packs/Day Years Used Date Smoking Tobacco: Never Assessed Comments Unknown Sex and Gender Information Value Date Recorded Sex Assigned at Not on file Legal 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 MUD CLEANER OPERATOR Gender Identity Not on file Sexual Orientation Not on file documented as of this encounter Progress Notes * Unknown, MD Angelica - 02/01/2004 1:19 PM CST Progress Note Created by: Reji Li M.D. DATE: 01/25/2004 JIMBO OWENS DATE OF : 1970 AGE: [age] years old Referring Physician: BOY WATSON Referring Clinic: [facility] CURRENT DIAGNOSES 1. - Shortness of Breath, [...] chol Reji Li M.D. Electronically signed by [facility], Emr Data Conversion at 08/05/2013 5:43 AM CDT documented in this encounter Plan of Treatment Not on file documented as of this encounter Visit Diagnoses Not on filedocumented in this encounter Additional Health Concerns Infection Onset Date Last Indicated Resolved Time Rule Out COVID-19 03/19/2020 03/19/2020 03/19/2020 6:22 PM MUD CLEANER OPERATOR COVID-19 03/19/2020 03/19/2020 04/09/2020 11:3 9 PM MUD CLEANER OPERATOR Rule Out COVID-19 06/19/2021 06/19/2021 06/19/2021 1:37 AM CDT Rule Out COVID-19 10/29/2021 10/29/2021 10/29/2021 1:07 AM CDT documented as of this encounter Care Teams Echometer Engineer Relationship Specialty Start Date End Date Edda Agudelo PA-C [facility] [address] [facility] [address] [place] [address] PCP - General 05/04/12 10/11/19 Sheila [place] 420 [facility] 396 [place] [address] PCP - General Family Practice 10/12/19 08/18/22 [facility] [address] [place] [address] PCP - General 08/19/22 10/14/22 [place] [address] [facility] [place] [address] PCP - General 10/15/22 Magno Wood MD 420 [facility] 396 [place] [address] Otolaryngology 05/29/15 08/02/17 Parth Ellis MD [address] [place] [address] Assigned Heart and Vascular Provider 01/13/20 12/13/21 Tati Ayala MD [address] [place] [address] 200 [place] [address] Assigned Endocrinology Provider 01/13/20 12/29/20 Khris Butt MD [address] [place] [address] [place] [address] Assigned Heart and Vascular Provider 12/14/21 02/14/22 Roderick Morelos MD [address] [place] [address] Cardiovascular Disease 02/03/22 Roderick Morelos MD [address] [place] [address] Assigned Heart and Vascular Provider 02/15/22 07/18/22 Magno Wood MD [address] [place] [address] Otolaryngology 02/21/22 Sophie Ocasio AuD [address] [place] [address]8465 Senior Java Architect Audiology 02/21/22 Parth Ellis MD [address] [place] [address] Assigned Heart and Vascular Provider 07/19/22 07/25/22 Roderick Morelos MD [address] [place] [address] Assigned Heart and Vascular Provider 07/26/22 08/08/22 Henny Rosales APRN STAMP ANALYST [address] [place] [address] Assigned Heart and Vascular Provider 08/09/22 02/12/24 Sharee Oliva, [place] [address] [place] [address] Registered Dietitian Dietitian, Registered 09/02/22 Christiane Rodríguez MD [address] [place] [address]125 Otolaryngology 11/12/22 Luis A Escobedo MD [address] [address] Assigned Surgical Provider 11/01/22 11/28/22 Chely Fernandez PA-C 909 [place], [place] [address]25 Assigned Surgical Provider 11/29/22 02/06/23 Jing Cadena TIE LAYER SPINNER HAND [address] 724825 Clinical Nurse Specialist Anesthesiology 01/15/23 Radha Lopez, [facility] [address] [place] [address] 113785 Pharmacist Pharmacist 01/16/23 Luis A Escobedo MD [address] [address] Assigned Surgical Provider 02/07/23 04/15/23 Geri Loza PA-C [address] [place] [address] 173235 Assigned Surgical Provider 04/16/23 Raina Patterson, TIE LAYER STAMP ANALYST [address] [place] [address] Nurse Practitioner Cardiovascular Disease 05/11/23 documented as of this encounter
--- OUTSIDE RECORDS SUMMARY | 2024-02-16 09:23 | XMS_ITS | Encounter Summary ---
Author Organization [place] Address [address] [place] [address] Care Team Providers Care Motor Vehicle Representative Name Role Phone Edda Agudelo PA-C Primary Care Provider Magno Wood MD Unavailable [phone] [facility] Primary Care Provider Unavailable Parth Ellis MD Unavailable [phone] Tati Ayala MD Unavailable [phone] Khris Butt MD Unavailable +[phone] MorelosRoderick nunes MD Unavailable +[phone] Roderick Morelos MD Unavailable [phone] Magno Wood MD Unavailable [phone] Sophie Ocasio Unavailable +[phone] Parth Ellis MD Unavailable +[phone] Roderick Morelos MD Unavailable [phone] Henny Rosales APRN HALL WORKER Unavailable +[phone] [facility], [facility] Primary Care Pr ovider Sharee Oliva RD Unavailable [phone] Kaykay Duarte FRONT DESK ATTENDANT Primary Care Provider Christiane Rodríguez MD Unavailable +[phone] Luis A Escobedo MD Unavailable + [phone] Chely Fernandez PA-C Unavailable +[phone] Jing Cadena APRN [facility] Unavailable + [phone] Jessica Radhajessica Marte [facility] Unavailable [phone] Luis A Escobedo MD Unavailable + [phone] Geri Loza PA-C Unavailable +[phone] Raina Patterson APRN [facility] Unavailable +[phone] Encounter Details Date Type Department Care Team (Late st Contact Info) Description 10/20/2001 Office Visit-[facility] Heart [address] [address] Unknown, Doctor, Social History Tobacco Use Types Packs/Day Years Used Date Smoking Tobacco: Never Assessed Comments Unknown Sex and Gender Information Value Date Recorded Sex Assigned at Not on file Legal 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 BOX PULLER Gender Identity Not on file Sexual [...] Out COVID-19 03/19/2020 03/19/2020 03/19/2020 6:22 PM BOX PULLER COVID-19 03/19/2020 03/19/2020 04/09/2020 11:3 9 PM BOX PULLER Rule Out COVID-19 06/19/2021 06/19/2021 06/19/2021 1:37 AM CDT Rule Out COVID-19 10/29/2021 10/29/2021 10/29/2021 1:07 AM CDT documented as of this encounter Care Teams Motor Vehicle Representative Relationship Specialty Start Date End Date Edda Agudelo, PA-C [facility] [address] [address] PCP - General 05/04/12 10/11/19 Ernestina Martini 420 [facility] 396 [place] [address] PCP - General Family Practice 10/12/19 [facility] [address] [place], [place] [address] PCP - General 08/19/22 10/14/22 [place] [address], [place] [address] PCP - General 10/15/22 Magno Wood MD 420 [facility] [place] [facility] 396 [place] [address] Otolaryngology 05/29/15 08/02/17 Parth Ellis MD [address] [place] [address] Assigned Heart and Vascular Provider 01/13/20 12/13/21 Tati Ayala MD [address] [place] [address] [place], [place] [address] Assigned Endocrinology Provider 01/13/20 12/29/20 Khris Butt MD [address] [facility] [address] [place] [address] Assigned Heart and Vascular Provider 12/14/21 02/14/22 Roderick Morelos MD [address] [place], [place] [address]25 Cardiovascular Disease 02/03/22 Roderick Morelos MD [address] [place] [address] Assigned Heart and Vascular Provider 02/15/22 07/18/22 Magno Wood MD 420 [facility] 396 [place], [place] [address] Otolaryngology 02/21/22 Sophie Ocasio AuD 909 [place], [place] 421705 Websphere Commerce Architect Audiology 02/21/22 Parth Ellis MD [address] [place] [address]25 Assigned Heart and Vascular Provider 07/19/22 07/25/22 Roderick Morelos MD [address] [place] [address] Assigned Heart and Vascular Provider 07/26/22 08/08/22 Henny Rosales APRN HALL WORKER [address] [place] [address] Assigned Heart and Vascular Provider 08/09/22 02/12/[address] [place], [place] [address]455 Registered Dietitian Dietitian, Registered 09/02/22 Christiane Rodríguez MD 420 [facility] 396 [place], [place] [address] Otolaryngology 11/12/22 Luis A Escobedo MD 420 [facility] 195 [place], [place] [address] Assigned Surgical Provider 11/01/22 11/28/22 Chely Fernandez PA-C 909 [place], [place] 255605 Assigned Surgical Provider 11/29/22 02/06/23 Jing Cadena CONTINUUM OF CARE MANAGER POWDERED SUGAR PULVERIZER OPERATOR 420 [facility] 450 [place], [place] [address] Clinical Nurse Specialist Anesthesiology 01/15/23 Radha Lopez [facility] [address] [place] [address] 122515 Pharmacist Pharmacist 01/16/23 Luis A Escobedo MD [address] [place] [address] 195 [place], [place] [address]2445 Assigned Surgical Provider 02/07/23 04/15/23 Geri Loza PA-C [address] [place] [address] 364795 Assigned Surgical Provider 04/16/23 Raina Patterson APRN HALL WORKER [address] [place] [address] Nurse Practitioner Cardiovascular Disease 05/11/23 documented as of this encounter
--- OUTSIDE RECORDS SUMMARY | 2024-02-16 09:23 | XMS_ITS | Encounter Summary ---
Author Organization [place] Address [address] [place] [address] Care Team Providers Care Line Controller Name Role Phone [facility] Primary [facility] Provider Unavailable MorelosRoderick nunes MD Unavailable [phone] Roderick Morelos MD Unavailable [phone] Magno Wood MD Unavailable [phone] Sophie Ocasio Unavailable [phone] Parth Ellis MD Unavailable Roderick Morelos MD Unavailable [phone] Henny Rosales APRN TOURS HOSTESS Unavailable [phone] [facility] Primary Care Pr ovider Sharee Oliva RD Unavailable [phone] Kaykay Duarte NP Primary Care Provider [phone] Christiane Rodríguez MD Unavailable Luis A Escobedo MD Unavailable [phone] Chely Fernandez PA-C Unavailable +[phone] Jing Cadena APRN CYLINDER BLOCK HOLE RELINER Unavailable Radha Lopez [facility] Unavailable [phone] Luis A Escobedo MD Unavailable [phone] Geri LozaC Unavailable Raina Patterson APRN TOURS HOSTESS Unavailable Encounter Details Date Type Department Care Team (Late st Contact Info) Description 05/26/2022 MyC Medical Advice [facility] [address] [place] [address] Jessi Mantilla LPN Social History Tobacco Use Types Packs/Day Years Used Date Smoking Tobacco: Never Smokeless Tobacco: Never Alcohol Use Standard Drinks/Week Comments Yes 0 (1 standard drink = 0.6 oz pur e alcohol) socially Comments No Sex and Gender Information Value Date Recorded Sex Assigned at Not on file Legal 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 HIGH LIFT DRIVER Gender Identity Not on file Sexual Orientation Not on file documented as of this encounter Plan of Treatment Not on file documented as of this encounter Visit Diagnoses Not on filedocumented in this encounter Care Teams Line Controller Relationship Specialty Start Date End Date Ernestina Martini PCP - General Family Practice 10/12/19 08/18/22 [facility] [place] [address] [place] [address] PCP - General 08/19/22 10/14/22 [place] [address] [place] [address] PCP - General 10/15/22 Roderick Morelos MD [address] [place] [id number] Cardiovascular Disease 02/03/22 Roderick Morelos MD [address] [place] [address] Assigned Heart and Vascular Provider 02/15/22 07/18/22 Magno Wood MD [address] [place] [address] Otolaryngology 02/21/22 Sophie Ocasio AuD 9 [place], [place] 291395 Assembly Riveter Audiology 02/21/22 Parth Ellis MD [address] [place] [address] Assigned Heart and Vascular Provider 07/19/22 07/25/22 Roderick Morelos MD [address] [place] [address] Assigned Heart and Vascular Provider 07/26/22 08/08/22 Henny Rosales APRN TOURS HOSTESS [address] [place] [address] Assigned Heart and Vascular Provider 08/09/22 02/12/24 Sharee Oliva, ÁNGEL [address] [place] [address] Registered Dietitian Dietitian, Registered 09/02/22 Christiane Rodríguez MD [address] [place] [address] 957305 Otolaryngology 11/12/22 Luis A Escobedo MD [address] [address] Assigned Surgical Provider 11/01/22 11/28/22 Chely Fernandez PA-C 909 [place], [place] 691855 Assigned Surgical Provider 11/29/22 02/06/23 Jing Cadena APRN CYLINDER BLOCK HOLE RELINER [address] 989665 Clinical Nurse Specialist Anesthesiology 01/15/23 Radha Lopez, [facility] [address] [place] [address] [phone] Pharmacist Pharmacist 01/16/23 Luis A Escobedo MD [address] [address] Assigned Surgical Provider 02/07/23 04/15/23 Geri Loza PA-C 909 [place] [address] Assigned Surgical Provider 04/16/23 Raina Patterson, GINA TOURS HOSTESS [address] [place] [address] Nurse Practitioner Cardiovascular Disease 05/11/23 documented as of this encounter
--- OUTSIDE RECORDS SUMMARY | 2024-02-16 09:23 | XMS_ITS | Encounter Summary ---
Author Organization [place] Address [address] [place] [address] Care Team Providers Care Engine Turner Name Role Phone Barrington Agudelo PA-C Primary Care Provider Magno Wood MD Unavailable [phone] [facility] Primary Care Provider Unavailable Parth Ellis MD Unavailable [phone] Tati Ayala MD Unavailable [phone] Khris Butt MD Unavailable [phone] MorelosRoderick nunes MD Unavailable [phone] Roderick Morelos MD Unavailable [phone] Magno Wood MD Unavailable [phone] Sophie Ocasio Unavailable [phone] Prath Ellis MD Unavailable [phone] Roderick Morelos MD Unavailable [phone] Henny Rosales APRN POLYGRAPH OPERATOR Unavailable [phone] [facility], [facility] Primary Care Pr ovider Sharee Oliva RD Unavailable [phone] Kaykay Duarte STAFF MIDWIFE/APPRENTICESHIP DIRECTOR Primary Care Provider [phone] Christiane Rodríguez MD Unavailable [phone] Luis A Escobedo MD Unavailable [phone] Chely Fernandez PA-C Unavailable [phone] Cadena Jing Susie [facility] Unavailable + [phone] Radha Lopez Estuardo [facility] Unavailable [phone] Luis A Escobedo MD Unavailable [phone] Geri Loza PA-C Unavailable [phone] UzielkeriRaina APRN [facility] Unavailable [phone] Encounter Details Date Type Department Care Team (Late st Contact Info) Description 08/21/2011 Office Visit-[facility] Heart [address] [address] Dane Rosa MD Social History Tobacco Use Types Packs/Day Years Used Date Smoking Tobacco: Never Assessed Comments Unknown Sex and Gender Information Value Date Recorded Sex Assigned at Not on file Legal 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 RAILROAD POLICE Gender Identity Not on file Sexual Orientation Not on file documented as of this encounter Progress Notes * Dane Rosa MD - 08/25/2011 9:18 AM CDT Progress Note Created by: Dane Rosa M.D. DATE: 08/21/2011 IJ[facility]O [facility] DATE OF : 1970 AGE: [age] years old Referring Physician: BARRINGTON LARA Referring Clinic: [facility] CURRENT DIAGNOSES 1. - Hypercholesterolemia, 272.0 [...] 2004, May 2009, event monitor February 2006 PMx Echo Results: 12/2007 Mitral valve normal in structure and function, normal EF Left Ventricular Ejection Fraction: 70% per nuc , EF<GT>55% by nuclear study -May 2009 Nuclear Results: May 2009- no evidence of ischemia LVEF of 66% documented via nuclear study on 06/06/2009 FAMILY HISTORY: Father - pacemaker; Mother - Age 34, cancer-breast; Half-Brother - CA; Sister 1 - CAD; SOCIAL HISTORY Alcohol [...] Out COVID-19 03/19/2020 03/19/2020 03/19/2020 6:22 PM RAILROAD [employer] COVID-19 03/19/2020 03/19/2020 04/09/2020 11:3 9 PM [employer]ILRO[employer] Rule Out COVID-19 06/19/2021 06/19/2021 06/19/2021 1:37 AM CDT Rule Out COVID-19 10/29/2021 10/29/2021 10/29/2021 1:07 AM CDT documented as of this encounter Care Teams Engine Turner Relationship Specialty Start Date End Date Barrington Agudelo PA-C [facility] [address] [address] PCP - General 05/04/12 10/11/19 [place] JuabErnestina [address] [facility] [address] [place] [address] PCP - General Family Practice 10/12/19 08/18/22 [facility], [place] [address] [place] [address] PCP - General 08/19/22 10/14/22 Kaykay Duarte, STAFF MIDWIFE/APPRENTICESHIP DIRECTOR [address] [facility] [place] [address] PCP - General 10/15/22 Magno Wood MD 420 [facility] 396 [place] [address] Otolaryngology 05/29/15 08/02/17 Parth Ellis MD [address] [place] [address] Assigned Heart and Vascular Provider 01/13/20 12/13/21 Tati Ayala MD [address] [facility] 200 [place] [address] Assigned Endocrinology Provider 01/13/20 12/29/20 Khris Butt MD [address] [place] [address] Assigned Heart and Vascular Provider 12/14/21 02/14/22 Roderick Morelos MD [address] [place] [address] Cardiovascular Disease 02/03/22 Roderick Morelos MD [address] [place] [address] Assigned Heart and Vascular Provider 02/15/22 07/18/22 Magno Wood MD [address] 510985 Otolaryngology 02/21/22 Sophie Ocasio AuD [address] [place] [address] Folder Hand Audiology 02/21/22 Parth Ellis MD [address] [place] [address] Assigned Heart and Vascular Provider 07/19/22 07/25/22 Roderick Morelos MD [address] [place] 445205 Assigned Heart and Vascular Provider 07/26/22 08/08/22 Henny Rosales APRN POLYGRAPH OPERATOR [address] [place] [address] Assigned Heart and Vascular Provider 08/09/22 02/12/24 Sharee Oliva, ÁNGEL [address] [place] [address] [phone] Registered Dietitian Dietitian, Registered 09/02/22 Christiane Rodríguez MD [address] [phone] Otolaryngology 11/12/22 Luis A Escobedo MD [address] 550785 Assigned Surgical Provider 11/01/22 11/28/22 Chely Fernandez PA-C [address] [place] [address] 044375 Assigned Surgical Provider 11/29/22 02/06/23 Jing Cadena APRN DISTRIBUTION SUPERINTENDENT [address] 665965 Clinical Nurse Specialist Anesthesiology 01/15/23 Radha Lopez, [facility] [address] [place] [address] 170375 Pharmacist Pharmacist 01/16/23 Luis A Escobedo MD [address] [place] [address] Assigned Surgical Provider 02/07/23 04/15/23 Geri Loza PA-C [address] [place] [address] 789875 Assigned Surgical Provider 04/16/23 Raina Patterson, GINA POLYGRAPH OPERATOR [address] [place] 140275 Nurse Practitioner Cardiovascular Disease 05/11/23 documented as of this encounter
--- OUTSIDE RECORDS SUMMARY | 2024-02-16 09:23 | XMS_ITS | Encounter Summary ---
Author Organization [place] Address [address] [place] [address] Care Team Providers Care Control Systems Specialist Name Role Phone [facility] Primary Care Provider Unavailable Roderick Morelos MD Unavailable [phone] Magno Wood MD Unavailable [phone] Sophie Ocasio AuD Unavailable [phone] Henny Rosales HELP DESK CONSULTANT BUSINESS OFFICE DIRECTOR Unavailable [phone] [facility], [place] Primary Care Pr ovider Sharee Oliva RD Unavailable [phone] Kaykay Duarte MEDICAL TECHNOLOGIST Primary Care Provider Christiane Rodríguez MD Unavailable [phone] Luis A Escobedo MD Unavailable [phone] Chely Fernandez PA-C Unavailable [phone] Jing Cadena APRN MACHINE FUR CLEANER Unavailable Radha Lopez [facility] Unavailable [phone] Luis A Escobedo MD Unavailable [phone] Geri Loza PA-C Unavailable Raina Patterson APRN BUSINESS OFFICE DIRECTOR Unavailable Encounter Details Date Type Department Care Team (Late st Contact Info) Description 08/16/2022 Nabil Medical Advice [facility] [address] 4th [place] [phone] [facility] [place] Social History Tobacco Use Types Packs/Day Years Used Date Smoking Tobacco: Never Smokeless Tobacco: Never Alcohol Use Standard Drinks/Week Comments Yes 0 (1 standard drink = 0.6 oz pur e alcohol) socially PHQ-2 Answer Date Recorded PHQ-2 Score 0 08/15/2022 Comments No Sex and Gender Information Value Date Recorded Sex Assigned at Not on file Legal 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 CASE REVIEWER Gender Identity Not on file Sexual Orientation [...] on filedocumented in this encounter Care Teams Control Systems Specialist Relationship Specialty Start Date End Date Ernestina Martini PCP - General Family Practice 10/12/19 08/18/22 [facility], [place] [address] [place] [address] PCP - General 08/19/22 10/14/22 Kaykay Duarte, MEDICAL TECHNOLOGIST [address] [place] [address] PCP - General 10/15/22 Roderick Morelos MD [address] [place] [address] Cardiovascular Disease 02/03/22 Magno Wood MD [address] [place] [address] 396 [place] [address] Otolaryngology 02/21/22 Sophie Ocasio AuD 909 [place] [address] Geriatric Care Manager Audiology 02/21/22 Henny Rosales, HELP DESK CONSULTANT BUSINESS OFFICE DIRECTOR [address] [place] [address] Assigned Heart and Vascular Provider 08/09/22 02/12/[address] [place] [address] 216775 Registered Dietitian Dietitian, Registered 09/02/22 Christiane Rodríguez MD 420 [facility] 396 [place], [place] 284055 Otolaryngology 11/12/22 Luis A Escobedo MD [address] [place] [address] 195 [place], [place] 018425 Assigned Surgical Provider 11/01/22 11/28/22 Chely Fernandez PA-C [address] [place] [address] 863665 Assigned Surgical Provider 11/29/22 02/06/23 Jing Cadena APRN MACHINE FUR CLEANER 420 [facility] 450 [place], [place] 857605 Clinical Nurse Specialist Anesthesiology 01/15/23 Radha Lopez, [facility] [address] [place] [address] Pharmacist Pharmacist 01/16/23 Luis A Escobedo MD [address] [place] [address] 195 [place] [address] Assigned Surgical Provider 02/07/23 04/15/23 Geri Loza PA-C [address] [place] [address] Assigned Surgical Provider 04/16/23 Raina Patterson APRN [facility] [address] [place] 954885 Nurse Practitioner Cardiovascular Disease 05/11/23 documented as of this encounter
--- OUTSIDE RECORDS SUMMARY | 2024-02-16 09:23 | XMS_ITS | Encounter Summary ---
Author Organization [place] Address [address] [place] [address] Care Team Providers Care Sorter Lumber Straightener Name Role Phone [facility] Primary Care Provider Unavailable MorelosRoderick nunes MD Unavailable [phone] Roderick Morelos MD Unavailable [phone] Magno Wood MD Unavailable [phone] Sophie Ocasio Unavailable [phone] Parth Ellis MD Unavailable Roderick Morelos MD Unavailable [phone] Henny Rosales APRN PEDIATRIC PSYCHIATRIST Unavailable [phone] [facility] Primary Care Pr ovider Sharee Oliva RD Unavailable [phone] Kaykay Duarte NP Primary Care Provider Christiane Rodríguez MD Unavailable Luis A Escobedo MD Unavailable [phone] Chely Fernandez PA-C Unavailable [phone] Jing Cadena APRN OUTPATIENT THERAPIST Unavailable [phone] Radha Lopez [facility] Unavailable [phone] Luis A Escobedo MD Unavailable Geri Loza PAEddaC Unavailable Raina Patterson APRN PEDIATRIC PSYCHIATRIST Unavailable [phone] Encounter Details Date Type Department Care Team (Late st Contact Info) Description 04/08/2022 [facility] [place] 6[address] [facility] [address] [place] [address] Suha Wade RN Social History Tobacco Use Types Packs/Day Years Used Date Smoking Tobacco: Never Smokeless Tobacco: Never Alcohol Use Standard Drinks/Week Comments Yes 0 (1 standard drink = 0.6 oz pur e alcohol) socially Comments No Sex and Gender Information Value Date Recorded Sex Assigned at Not on file Legal 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 FUNDING COORDINATOR Gender Identity Not on file Sexual Orientation Not on file COVID-19 Exposure Response Date Recorded In the last 10 days, have yo u been in contact with someone who was confirmed or suspected to have Coronavirus/COVID-19? No / Unsure 04/09/2022 6:32 AM FUNDING COORDINATOR documented as of this encounter Plan of Treatment Not on file documented as of this encounter Visit Diagnoses Not on filedocumented in this encounter Care Teams Sorter Lumber Straightener Relationship Specialty Start Date End Date Ernestina Martini PCP - General Family Practice 10/12/19 08/18/22 [facility], [place] [address] [place], [place] 939857 PCP - General 08/19/22 10/14/22 Kaykay Duarte NP [address] [place] [address] [place] [id number] PCP - General 10/15/22 Roderick Morelos MD [address] [facility] [address] [place] 156085 Cardiovascular Disease 02/03/22 Roderick Morelos MD [address] [place] [address] Assigned Heart and Vascular Provider 02/15/22 07/18/22 Magno Wood MD [address] [place] [address] 046635 Otolaryngology 02/21/22 Sophie Ocasio AuD [address] [place] [address] 543605 Seismic Prospecting Observer Audiology 02/21/22 Parth Ellis MD [address] [place] [place] [address] Assigned Heart and Vascular Provider 07/19/22 07/25/22 Roderick Morelos MD [address] [place] [address] Assigned Heart and Vascular Provider 07/26/22 08/08/22 Henny Rosales, FIELD RING ASSEMBLER PEDIATRIC PSYCHIATRIST [address] [place] [address] Assigned Heart and Vascular Provider 08/09/22 02/12/[address] [place] [address] 695565 Registered Dietitian Dietitian, Registered 09/02/22 Christiane Rodríguez MD [address] [place] [address] Otolaryngology 11/12/22 Luis A Escobedo MD 420 [facility] 195 [place] [address] Assigned Surgical Provider 11/01/22 11/28/22 Chely Fernandez PA-C 909 [place] [address] Assigned Surgical Provider 11/29/22 02/06/23 Jing Cadena APRN OUTPATIENT THERAPIST 420 [facility] 450 [place] [address] Clinical Nurse Specialist Anesthesiology 01/15/23 Radha Lopez, [facility] [address] [place] [address] Pharmacist Pharmacist 01/16/23 Luis A Escobedo MD [address] [address] Assigned Surgical Provider 02/07/23 04/15/23 Geri Loza PA-C [address] [place] [address] Assigned Surgical Provider 04/16/23 Raina Patterson APRN PEDIATRIC PSYCHIATRIST [address] [place] 451675 Nurse Practitioner Cardiovascular Disease 05/11/23 documented as of this encounter
--- OUTSIDE RECORDS SUMMARY | 2024-02-16 09:24 | XMS_ITS | Clinical Summary ---
Author Organization [facility] Address [address] [place] [address] Care Team Providers Care Oven Roaster Name Role Phone Kaykay Duarte APRN, LEAH Primary Care Provid er Source Comments You are receiving this document as you are listed as the primary care provider,follow-up provider, or the patient has been referred to you for consultation.This is in compliance with the Medicare and[facility] Cent[facility]aid EHR Incentive Program,which states Providers who transition their patient to another setting of careor provider of care or refers their patient to another provider of care shouldprovide summary care record for each transition of care or referral. [employer] Allergies No known active allergies Medications Medication [...] use. 1 Each 3 02/20/2022 Active cyanocobalamin (CELOYAFM80) 1000 MCG/ML injection Inject 1,000 mcg subcutaneously [...] (01/04/2021): Added automatically from request for surgery [id number] S/P laparoscopic sleeve gastrectomy 08/09/2020 Overview (08/09/2020): [...] 35 RDI 36 Lowest O2 Sat: 87% [facility] Cervical high risk HPV (human papillomavirus) te st positive 08/05/2017 Overview (06/01/2023): [facility] Review: History: 07/2017: NILM HPV+ (18) 08/2017: [...] Notes/Orders Centralized Outreach [address] [place] [address] [address] Mikayla Sweeney MD Type 2 diabetes mellitus without complication, without long-term current use of insulin (HRC) from Last 3 Months Immunizations Name Administration Dates Next Due Influenza IIV4 (Quadrivalent ) 0.5mL (89493) 02/08/2021,03/31/2019,04/14/2017 PCV20 ([id number]) 05/20/2023 PPSV23 (Pneumovax) 04/14/2017 Pfizer Monovalent 12+ Purple Top 11/28/2020,05/23 Tdap 06/26/2021, 8(Deferred: Patient Refused - Pt [...] 85 07/27/2023 9:43 AM CDT Temperature 36.9 C (98.4 F) 07/27/2023 9:43 AM CDT Respiratory Rate 20 07/27/2023 9:43 AM CDT Oxygen Saturation 100% 07/27/2023 9:43 AM CDT Inhaled Oxygen Concentration - - Weight 120.5 kg (265 lb 9.6 oz) 05/20/2023 2:19 PM [facility] Height 167.6 cm (5' 6) 09/11/2022 4:11 PM CDT Body Mass Index 42.87 09/11/2022 4:11 PM CDT Plan of Treatment Health Maintenance Due Date Last Done Comments HepB (1) 10/02/1987 Diabetes: Foot Exam 02/08/2022 02/08/2021 (Completed ) Diabetes: HGBA1C 06/24/2023 12/23/2022, 05/2022, 10/23/2022, Additional history exists Diabetes: [...] this topic Medical Devices Implanted Type Area Inbound Telemarketer Device Identifier Shelf Expiration Date Model / Serial / Lot Kit Leidy Burris Sys - [id number] Implanted:Qty: 1 on 02/19/2021 by Zoila Shaikh MBBS at [facility] DEVICE N/A: PELVIS [employer] 12/05/2021 [id number] / [id number] / [id number] Description:Polypropylene me sh- per [employer] Gyrus Virk Torp-05/20/2005 Implanted: 006 (Quantity not on file) ENT EAR [id number] / / [id number] Description:Devices that are made from non-metallic materials (i.e. Implants and Ventilation Tubes made from DAVIS, Plasti-pore, Silicone, Fluoroplastic) are inherently non-conducting and non-magnetic and pose no known hazards in all MR environments and therefore are considered MR Safe. - Per [facility] Procedures Procedure Name Priority Date/Time Associated Diagnosis Comments PAP TEST Routine 04/29/2023 9:58 AM FARM [facility] Screening for cervical cancer MM MAMMOGRAM SCREENING BILAT W 3D SCOT W CAD Routine 04/02/2023 8:58 AM [facility] HGB A1C Routine 12/23/2022 11:40 AM CDT [...] Results * PAP Test (04/29/2023 9:58 AM [facility]) Case Report Pap Case: [id number] Authorizing Provider: Elizabeth Herndon APRN, Collected: 04/29/2023 0958 CNCarole Ordering Location: [facility] Received: 04/29/2023 1008 Services-STRAIGHT CUTTER First Screen: Naelizabeth, Diana E, CT (ASCP) Specimen: Pap Test, Routine, Cervix/Endocervix 05/21/2023 1:19 PM [facility] Pap Specimen Adequacy Satisfactory for evaluation, endocervical/kerr sformation zone component present. 05/21/2023 1:19 PM [facility] Pap Interpretation (NILM) Negative for intraepithelial lesion or malignancy. 05/21/2023 1:19 PM [facility] Pap Disclaimer The Pap test is a screening test to aid in the detection of cervical and vaginal cancers and their precursor lesions. It is not a diagnostic procedure and should not be used as the sole means of detecting malignancy. Both false-positive and false-negative results may occur. 05/21/2023 1:19 PM [facility] Gross Description The specimen is received in SurePath fixative and properly labeled. 1 Pap-stained SurePath slide is prepared. 05/21/2023 1:19 PM [facility] Embedded Images 1:19 PM [facility] Other Specimen Type ENTIRE ENDOCERVIX / Unknown 04/29/2023 9:58 AM [facility] 04/29/2023 10:08 AM [facility] Comment:LMP: No LMP recorded . (Menstrual status: IUD). Elizabeth Herndon APRN, [facility] PATHOLOGY [facility] [address] * MM Mammogram Screening Bilat W 3D Scot W CAD (04/02/2023 8:58 AM F[facility]) Anatomical Region Laterality Modality Breast Bilateral Mammography Impressions 04/02/2023 10:15 AM FARM [facility] : ACR BI-RADS Category 1: Negative RECOMMENDATION: Follow Up Imaging in 12 months - Bilateral The provided family history indicates that the patient might be at a high lifetime risk of breast cancer. Consider a formal risk assessment if not previously performed. The results and recommendations of this examination will be communicated to the patient. Narrative 04/02/2023 10:15 AM [facility] MM MAMMOGRAM SCREENING BILAT W 3D SCOT W CAD performed on 04/02/23 Compared to: 02/04/2022 MM Mammogram Screening Bilat W 3D Scot W CAD, 01/30/2021 MM Mammogram Screening Bilat W 3D Scot W CAD, and 01/09/2020 MM Mammogram Screening Bilat W 3D Scot W CAD FINDINGS: Bilateral screening mammogram was performed with the assistance of Computer-Aided Detection and breast tomosynthesis. The breasts have scattered areas of fibroglandular density. There is no radiographic evidence of malignancy. Kaykay Duarte LUDLOW MACHINE OPERATOR, SUPERVISOR SAFETY DEPOSIT RAD CARLOS * (ABNORMAL) HgbA1c - Collect in Lab (12/23/2022 11:40 AM CDT) Hemoglobin A1C (Rapid) 6.4(H) <=5.6 % 12/23/2022 1:46 PM T [facility] Estimated Average Glucose (Calc) 137 < 117 mg/dL 12/23/2022 1:46 PM T [facility] Comment:Estimated average gl ucose (eAG) converts A1c into glucose units (mg/dL) and estimates average glucose over the past approximately 3 months. The eAG reference interval (<117 mg/dL) corresponds to an A1c of <5.7%. Blood Venipuncture / Unknown 12/23/2022 11:40 AM CDT 12/23/2022 11:43 AM CDT Narrative [facility] - 12/23/2022 1:46 PM CDT For [...] direction. Mikayla Sweeney MD LAB_1 [facility] [address] [place] [address], [facility] [phone] * Endoscopy, colon, diagnostic (11/20/2022 7:03 AM [...] and oxygen saturations were monitored continuously. The [id number] was introduced through the anus and advanced [...] from the initial medication administration until the manager advanced assists with initial maneuvers (biopsy / polypectomy / etc.), or if no maneuvers are performed, until the endoscopist leaves the room. Impression: - The examined portion of the ileum was normal. - The entire examined colon is normal. - Hemorrhoids. - No specimens collected. Recommendation: - Repeat colonoscopy in 10 years for screening purposes. Procedure Code(s): --- Professional --- 29039, Colonoscopy, flexible; diagnostic, including collection of specimen(s) by brushing or washing, when performed (separate procedure) 81079, Moderate sedation; each additional 15 minutes intraservice time G0500, Moderate sedation services provided by the same physician or other qualified health assistant child care teacher performing a gastrointestinal endoscopic service that sedation supports, requiring the presence of an independent trained observer to assist in the monitoring of the patient's level of consciousness and physiological status; initial 15 minutes of intra-service time; patient age 5 years or older (additional time may be reported with 31427, as appropriate) Diagnosis Code(s): --- Professional --- Z12.11, Encounter for screening for malignant neoplasm of colon K64.9, Unspecified hemorrhoids CPT copyright 2020 [employer]. All rights reserved. The codes documented in this report are preliminary and upon top trimmer review may be revised to meet current compliance requirements. Nahomy Latham, 11/20/2022 8:02:54 AM This document has been electronically signed. Number of Addenda: 0 Note Initiated On: 11/20/2022 7:03 AM Endoscopy Report Procedure Note Nahomy Latham MD - 11/20/2022 Patient Name: Billie Connolly Procedure Date: 11/20/2022 7:03 AM Date of : 1970 Admit Type: Outpatient Age: 52 Gender: Female Note Status: Finalized Attending MD: Nahomy Latham , Procedure: Colonoscopy Indications: Screening for colorectal malignant neoplasm Providers: Nahomy Latham, Eulalia Chávez RN Referring MD: Medicines: Fentanyl 200 micrograms IV, Midazolam 4 mg IV Complications: No immediate complications. Procedure: After I obtained informed consent, the scope was passed under direct vision. Throughout the procedure, the patient's blood pressure, pulse, and oxygen saturations were monitored continuously. The [id number] was introduced through the anus and advanced [...] from the initial medication administration until the manager advanced assists with initial maneuvers (biopsy / polypectomy / etc.), or if no maneuvers are performed, until the endoscopist leaves the room. Impression: - The examined portion of the ileum was normal. - The entire examined colon is normal. - Hemorrhoids. - No specimens collected. Recommendation: - Repeat colonoscopy in 10 years for screening purposes. Procedure Code(s): --- Professional --- 58790, Colonoscopy, flexible; diagnostic, including collection of specimen(s) by brushing or washing, when performed (separate procedure) 10255, Moderate sedation; each additional 15 minutes intraservice time G0500, Moderate sedation services provided by the same physician or other qualified health assistant child care teacher performing a gastrointestinal endoscopic service that sedation supports, requiring the presence of an independent trained observer to assist in the monitoring of the patient's level of consciousness and physiological status; initial 15 minutes of intra-service time; patient age 5 years or older (additional time may be reported with 93088, as appropriate) Diagnosis Code(s): --- Professional --- Z12.11, Encounter for screening for malignant neoplasm of colon K64.9, Unspecified hemorrhoids CPT copyright 2020 [employer]. All rights reserved. The codes documented in this report are preliminary and upon top trimmer review may be revised to meet current compliance requirements. Nahomy Latham, 11/20/2022 8:02:54 AM This document has been electronically signed. Number of Addenda: 0 Note Initiated On: 11/20/2022 7:03 AM Endoscopy Report Elizabeth Herndon APRN, CNCarole ET GI PROCEDUR E ORDERABLES * (ABNORMAL) Lipid Panel and Direct LDL(If Needed) (10/23/2022 11:20 AM CDT) Cholesterol 322(H) 0 - 199 mg/dL 10/23/2022 1:00 PM [facility] Triglyceride 205(H) <=149 mg/dL 10/23/2022 1:00 PM [facility] HDL Cholesterol 46 >=40 mg/dL 3 1:00 PM [facility] LDL, Calculated 235(H) <130 mg/dL 3 1:00 PM [facility] Non HDL Chol, Calculated 276(H) <=159 mg/dL 10/23/2022 1:00 PM [facility] Cholesterol/HDL Ratio 7.0 10/23/2022 1:00 PM [facility] Hours Fasting 0 10/23/2022 1:00 PM [facility] Blood Venipuncture / Unknown 10/23/2022 11:20 AM CDT 10/23/2022 11:39 AM CDT Mikayla Sweeney MD LAB_1 [facility] [address] [place] [address] [phone] * (ABNORMAL) Comp Metabolic Panel (10/23/2022 11:20 AM CDT) Sodium 139 136 - 145 mmol/L 10/23/2022 1:00 PM [facility] Potassium 4.3 3.5 - 5.1 mmol/L 10/23/2022 1:00 PM [facility] Chloride 105 98 - 109 mmol/L 10/23/2022 1:00 PM [facility] CO2 24 20 - 29 mmol/L 10/23/2022 1:00 PM [facility] Anion Gap 10 7 - 16 mmol/L 10/23/2022 1:00 PM [facility] Calcium 9.4 8.4 - 10.4 mg/dL 10/23/2022 1:00 PM [facility] BUN 17 7 - 26 mg/dL 10/23/2022 1:00 PM [facility] Creatinine 0.90 0.55 - 1.02 mg/dL 10/23/2022 1:00 PM [facility] Alkaline Phosphatase 73 40 - 150 U/L 10/23/2022 1:00 PM [facility] AST (SGOT) 16 10 - 40 U/L 10/23/2022 1:00 PM [facility] ALT (SGPT) 21 <=55 U/L 10/23/2022 1:00 PM [facility] Bilirubin, Total 0.4 0.2 - 1.2 mg/dL 10/23/2022 1:00 PM [facility] Protein, Total 7.0 6.4 - 8.3 g/dL 10/23/2022 1:00 PM [facility] Albumin 3.8 3.5 - 5.0 g/dL 10/23/2022 1:00 PM [facility] Glucose 123(H) 70 - 100 mg/dL 10/23/2022 1:00 PM [facility] Comment:The given reference range is for the fasting state. Non-fasting reference range for glucose is 70 - 180 mg/dL. Hours Fasting 0 10/23/2022 1:00 PM [facility] GFR, Estimated >60 >60 mL/min/1.7 3m2 10/23/2022 1:00 PM [facility] Blood Venipuncture / Unknown 10/23/2022 11:20 AM CDT 10/23/2022 11:39 AM CDT Geri Loza PA-C LAB_1 [facility] [address] [place] [address], [facility] [phone] * Albumin/Creatinine Ratio,Random Urine (08/20/2022 8:36 AM CDT) Albumin/Creati nine Ratio, Urine, Random 10 <30 mg/g 08/20/2022 10:58 AM [facility] Albumin, Urine, Random 18.1 mg/L 08/20/2022 10:58 AM [facility] Creatinine, Urine, Random 182 >20 mg/dL mg/dL 08/20/2022 10:58 AM [facility] Urine Non-blood Collection / Unknown 08/20/2022 8:36 AM CDT 08/20/2022 9:30 AM CDT Mikayla Sweeney MD LAB_1 Performing Organization Address [facility] Co de Phone Number [facility] [address] [place] [address], [facility] [phone] * Hepatitis C Antibody, with Reflex (09/13/2021 11:05 AM CDT) Hepatitis C Antibody Negative (Non Reactive) Negative (Non Reactive) 09/13/2021 4:31 PM CDT [facility] Comment:Antibodies to HCV no t detected. Does not exclude the possiblity of exposure to HCV. Blood Venipuncture / Unknown 09/13/2021 11:05 AM CDT 09/13/2021 11:16 AM CDT Kaykay Duarte APRN, CNP LAB_1 Performing Organization Address [facility] de Phone Number [facility] [address] * HIV 1/2 Ag/Ab 4th Generation (06/27/2020 8:04 AM CDT) Pathologist [facility] HIV 1/2 Antigen/Antib sherry (4th generation) Negative (Non Reactive) Negative (Non Reactive) 06/27/2020 12:45 PM CDT [facility] Comment:HIV-1 p24 Antigen an d HIV-1/HIV-2 Antibody not detected Blood Venipuncture / Unknown 06/27/2020 8:04 AM CDT 06/27/2020 8:09 AM CDT Kaykay Duarte APRN, CNP LAB_1 Performing Organization Address [facility] de Phone Number [facility] [address] from Last 3 Months or Most Recently Relevant to Health Maintenance Advance Directives * Full Code (Latest Code Status on File) Date Activated Date Inactivated Comments 08/09/2020 4:04 PM 08/10/2020 1:55 PM Care Teams Oven Roaster Relationship Specialty Start Date End Date Kaykay Duarte, LUDLOW MACHINE OPERATOR, SUPERVISOR SAFETY DEPOSIT [address] [place] [address] PCP - General Nurse Practitioner 10/25/21
--- OUTSIDE RECORDS SUMMARY | 2024-02-16 09:24 | XMS_ITS | Encounter Summary ---
Author Organization [employer] Address [address], [place] [address] Care Team Providers Care Enterprise Application Analyst Name Role Phone Kaykay Duarte APRN, LEAH Primary Care Provid er Encounter Details Date Type Department Care Team (Late st Contact Info) Description 12/18/2023 Notes/Orders Centralized Outreach [address] [place] [address] [place] [phone] Mikayla Sweeney MD [address] [place] [address] Type 2 diabetes mellitus without [...] (HRC) documented in this encounter Care Teams Enterprise Application Analyst Relationship Specialty Start Date End Date Kaykay Duarte, GINA, CROWNING INSPECTOR [address] [place] [address] PCP - General Nurse Practitioner 10/25/21 documented as of this encounter
--- OUTSIDE RECORDS SUMMARY | 2024-02-16 09:24 | XMS_ITS | Encounter Summary ---
Author Organization [employer] Address [address], [place] [address] Care Team Providers Care Blast Furnace Helper Name Role Phone Kaykay Duarte APRN, CNP Primary Care Provid er Reason for Visit * Reason Comments Vaginal Odor Encounter Details Date Type Department Care Team (Late st Contact Info) Description 04/14/2018 Nurse Triage [facility] [id number] [place] [address] Kaykay Duarte APRN, CNP [address] [place] [address] [id number] Vaginal Odor Social History Tobacco Use Types [...] States she will go to Urgent Care FINISHER SEAMSTRESS * Kaykay Duarte APRN, CNP - 04/14/2018 3:22 PM CST Plz call pt. Ok to work her in on at 11:40 or 1pm. FINISHER SEAMSTRESS * Geri Burnett, RN - 04/14/2018 3:09 PM CST Clinician Action: Appointment Work In Reason Vaginal discharge/odor Clinician Next Step: Route to [facility] to follow up and Patient IS expecting a call back from care team Specific Request(s): 1. Pt asking for a work in [facility] for vaginal discharge (white) and odor [...] last menstrual period? no Protocols used: VAGINAL [id number] FINISHER SEAMSTRESS * Karen Saunders - 04/14/2018 3:01 PM CST Pt calling back in. Transferred to triage per request. FINISHER SEAMSTRESS * Jacquelyn Jaquez CNA - 04/14/2018 11:05 AM CST Symptoms Describe your symptoms (if pain, include location): Odor, discharge When did they start? 2 weeks Additional comments (related to the above concern): Pt has had past BV infection. Pt unavailable to speak 11:30-1:00pm today 04/14/18 If a prescription is needed, patient would like it filled at the pharmacy listed in [facility]. (Verify the pharmacy patient would like to use for this request is highlighted in blue in Pharmacy Selection under [facility]) Is it okay to leave a detailed message on your voicemail? Yes (Advise caller that the PN call back number will end with [phone] or unknown) For urgent symptoms: Please route and transfer to: Triage Pool (high priority) For routine symptoms: Please route to: Triage Pool (only transfer if caller insists) FINISHER SEAMSTRESS documented in this encounter Plan of Treatment Not on file documented as of this encounter Visit Diagnoses Not on filedocumented in this encounter Additional Health Concerns Infection Onset Date Last Indicated Resolved Time R/O COVID19 02/08/2021 02/08/2021 02/09/2021 10:0 6 AM FUR FINISHER SEAMSTRESS R/O COVID19 02/17/2021 02/17/2021 02/17/2021 11:3 2 PM FUR FINISHER SEAMSTRESS documented as of this encounter Care Teams Blast Furnace Helper Relationship Specialty Start Date End Date Kaykay Duarte, FABRICATION MANAGER, MEDICARE INTERVIEWER [address] [place] [address] PCP - General Nurse Practitioner 10/25/21 documented as of this encounter
== END 2024-02-16 09:16 | disposition home or self-care (01) ==
LOC: NFLDREF 09:15
PROVIDERS: PCP Internal Medicine; Visit Provider Internal Medicine
DX: E03.9 Hypothyroidism, unspecified (principal); E11.9 Type 2 diabetes mellitus without complications
CPT/HCPCS: 84439; 84443